=== PATIENT | female | born 1955 | race Caucasian/White ===

== ENCOUNTER 2018-07-18 11:54 | Outpatient (CLI) | payer SELFPAY ==
[2018-07-18 12:31] LABS: Hemoglobin A1C 6.6 % (4.5-6.2)
== END 2018-07-18 12:14 ==
PROVIDERS: PCP General Practice; Visit Provider General Practice
DX: E11.9 Type 2 diabetes mellitus without complications (principal)
CPT/HCPCS: 36415; 83036

== ENCOUNTER 2018-09-14 08:45 | Outpatient (CLI) | payer MEDICARE, SELFPAY ==
[2018-09-14 10:16] LABS: Anion Gap 10.3 mmol/L (3-11); BUN 29 mg/dL (7-18); CO2 29.7 mmol/L (21.0-32.0); CREATININE 1.25 mg/dL (0.55-1.02); Chloride 102 mmol/L (98-107); Cholesterol 250 mg/dL (50-200); Estimated GFR 43.01 (mL/min/1.73m2); HDL Cholesterol 64 mg/dL (40-60); LDL CHOLESTEROL 165 mg/dL (<100); Potassium 3.7 mmol/L (3.5-5.1); Sodium 142 mmol/L (136-145); Triglyceride 157 mg/dL (30-150)
== END 2018-09-14 09:05 ==
PROVIDERS: PCP General Practice; Visit Provider General Practice
DX: E78.00 Pure hypercholesterolemia, unspecified (principal); I10 Essential (primary) hypertension
CPT/HCPCS: 36415; 80051; 80061; 83721; 84520; 82565

== ENCOUNTER → 2018-09-19 13:42 | Outpatient (BNVA) | payer MEDICARE, BC, SELFPAY | PROVIDERS: PCP General Practice; Referring Provider General Practice; Visit Provider Surgery | DX: R10.9 Unspecified abdominal pain (principal); E11.9 Type 2 diabetes mellitus without complications; Z79.84 Long term (current) use of oral hypoglycemic drugs; I10 Essential (primary) hypertension | CPT/HCPCS: 99213 ==

== ENCOUNTER 2019-07-14 08:53 | Outpatient (CLI) | payer MEDICARE, BC, SELFPAY ==
[2019-07-14 09:36] LABS: Hemoglobin A1C 6.3 % (4.5-6.2)
[2019-07-14 10:24] LABS: Anion Gap 10.6 mmol/L (3-11); BUN 21 mg/dL (7-18); CO2 30.4 mmol/L (21.0-32.0); CREATININE 1.34 mg/dL (0.55-1.02); Chloride 100 mmol/L (98-107); Estimated GFR 39.57 (mL/min/1.73m2); Potassium 3.8 mmol/L (3.5-5.1); Sodium 141 mmol/L (136-145)
== END 2019-07-14 09:13 ==
PROVIDERS: PCP General Practice; Visit Provider General Practice
DX: E11.9 Type 2 diabetes mellitus without complications (principal); I10 Essential (primary) hypertension
CPT/HCPCS: 36415; 80051; 84520; 82565; 83036

== ENCOUNTER 2019-08-18 09:11 | Outpatient (CLI) | payer MEDICARE, BC, SELFPAY ==
[2019-08-18 11:19] LABS: ALT 24 U/L (14-59); AST 21 U/L (15-37); Albumin 3.9 g/dL (3.4-5.0); Alkaline Phosphatase 84 U/L (46-116); Anion Gap 11.2 mmol/L (3-11); BUN 19 mg/dL (7-18); Bilirubin, Total 0.4 mg/dL (0.2-1.0); CO2 30.8 mmol/L (21.0-32.0); CREATININE 1.25 mg/dL (0.55-1.02); Calcium 9.7 mg/dL (8.5-10.1); Chloride 103 mmol/L (98-107); Estimated GFR 42.88 (mL/min/1.73m2); Glucose 110 mg/dL (70-100); Potassium 4.4 mmol/L (3.5-5.1); Sodium 145 mmol/L (136-145); Total Protein 7.9 g/dL (6.4-8.2)
== END 2019-08-18 09:31 ==
PROVIDERS: PCP Nurse Practitioner; Visit Provider Nurse Practitioner
DX: E11.9 Type 2 diabetes mellitus without complications (principal); I10 Essential (primary) hypertension
CPT/HCPCS: 36415; 80053

== ENCOUNTER → 2019-08-25 11:19 | Outpatient (BNVA) | payer MEDICARE, BC, SELFPAY | PROVIDERS: PCP Nurse Practitioner; Referring Provider Nurse Practitioner; Visit Provider Surgery | DX: R10.9 Unspecified abdominal pain (principal); I10 Essential (primary) hypertension; E11.9 Type 2 diabetes mellitus without complications | CPT/HCPCS: 99213 ==

== ENCOUNTER 2019-09-01 01:23 | Outpatient (CLI) | payer MEDICARE, BC, SELFPAY ==
--- NOTE | 2019-09-01 08:11 | DI.US_ITS ---
EXAM: US HERNIA CLINICAL HISTORY: Pain at previous Umbilical hernia. ? recurrence, R10.9 TECHNIQUE: Ultrasound performed using standard protocol. COMPARISON: No priors for comparison FINDINGS: No sonographic evidence of a supraumbilical or umbilical hernia is noted. No focal fluid collection is identified in the subcutaneous tissues. IMPRESSION: No sonographic evidence of a recurrent anterior abdominal wall hernia.
== END 2019-09-01 01:43 ==
PROVIDERS: PCP Nurse Practitioner; Visit Provider Surgery
DX: R10.33 Periumbilical pain (principal)
CPT/HCPCS: 76857

== ENCOUNTER → 2019-09-20 12:55 | Outpatient (BNVA) | payer MEDICARE, BC, SELFPAY | PROVIDERS: PCP Nurse Practitioner; Referring Provider Nurse Practitioner; Visit Provider Psychiatry & Neurology Neurology | DX: E11.40 Type 2 diabetes mellitus with diabetic neuropathy, unspecified (principal) | CPT/HCPCS: 99204; 99215 ==

== ENCOUNTER → 2019-10-30 09:41 | Outpatient (BNVA) | payer MEDICARE, BC, SELFPAY | PROVIDERS: PCP Nurse Practitioner; Referring Provider Nurse Practitioner; Visit Provider Nurse Practitioner Adult Health | DX: E11.42 Type 2 diabetes mellitus with diabetic polyneuropathy (principal) | CPT/HCPCS: 99213 ==

== ENCOUNTER 2019-12-01 11:24 | Outpatient (CLI) | payer MEDICARE, BC, SELFPAY ==
[2019-12-01 12:13] LABS: Hemoglobin A1C 7.3 % (3.8-5.6)
[2019-12-01 12:41] LABS: Anion Gap 10.4 mmol/L (3-11); BUN 33 mg/dL (7-18); CO2 29.6 mmol/L (21.0-32.0); CREATININE 1.54 mg/dL (0.55-1.02); Calcium 8.6 mg/dL (8.5-10.1); Chloride 102 mmol/L (98-107); Glucose 137 mg/dL (74-106); Potassium 3.4 mmol/L (3.5-5.1); Sodium 142 mmol/L (136-145)
== END 2019-12-01 11:44 ==
PROVIDERS: PCP Nurse Practitioner; Visit Provider Nurse Practitioner
DX: E11.9 Type 2 diabetes mellitus without complications (principal); R94.4 Abnormal results of kidney function studies
CPT/HCPCS: 36415; 80048; 83036

== ENCOUNTER 2019-12-12 12:00 | Emergency (ER) | payer MEDICARE, BC, SELFPAY ==
[2019-12-12] VITALS (35 sets, daily range): BP systolic 134–168; BP diastolic 60–75; PULSE 84–101; RESP 10–24; TEMP 36.7; O2SAT 91–100
--- NOTE | 2019-12-12 12:18 | NUR.NOTE ---
SSCP approx 1.5 hours [employer]. Reports dull achy pain, non-radiating. Reports associated dizziness, mild diaphoresis. Denies SOB. SR on monitor. #18 RAC, labs drawn. Pain 7/10 at it's worst, currently 0-1/10.
--- NOTE | 2019-12-12 12:19 | ED.GENADUL_ITS ---
Discharge Plan Disposition Patient Disposition: HOME Condition: Improving Discharge Details Chief Complaint: Chest Pain Clinical Impression: Atypical chest pain Primary Care Provider: Cass Abebe ED Provider: Ten Boss Home Meds and New Rx's Prescriptions: Continued cholecalciferol (vitamin D3) 1,000 unit capsule 1,000 unit PO DAILY RF: 0 pregabalin 150 mg capsule 150 mg PO BID Qty: 60 RF: 5 nortriptyline 10 mg capsule 40 mg PO HS Qty: 360 RF: 3 tramadol 50 mg tablet 50 mg PO HS Qty: 30 RF: 0 pantoprazole 40 MG tablet,delayed release (DR/EC) 40 mg PO DAILY RF: 0 hydrochlorothiazide 25 MG tablet 25 mg PO DAILY RF: 0 vitamin E 400 UNIT capsule 400 unit PO DAILY RF: 0 VITAMIN B COMPLEX 1 EACH tablet 1 tab-cap PO DAILY RF: 0 ibuprofen [Advil Liqui-Gel] 200 MG capsule 600 mg PO Q8H PRNQty: 0 RF: 0 Discharge Instructions Instructions: Chest Pain (ED) Additional Instructions: Your blood work, EKG, chest x-ray today were unremarkable. Return if you have recurrent chest pain, develop difficulty breathing, or any other acute concerns. Your magnesium was slightly low and you were given supplementation in the ED today. Follow-up with Cass Abebe in clinic for recheck in the next 1 to 2 weeks time. Continue your regular medications. Discharge Data Discharge Date/Time-TO BE ENTERED AT DEPARTURE: 12/12/19 16:26 Medical Decision Making 64-year-old female presents complaining of 1 hour of anterior chest discomfort that began this morning, lasted approximately 50 to 60 minutes and dissipated on its own after coughing 3 times. She arrives slightly hypertensive at 160/75 but otherwise reassuring exam. Initial EKG is unremarkable. Differential diagnosis includes ACS, atypical chest discomfort, esophageal gas. IV placed, patient placed on a cardiac catheterization technologist, referred for chest x-ray. Diagnostics reveal mild elevation of the BUN at 23 with creatinine 1.3, magnesium slightly low at 1.6 and supplemented. Troponin is negative; repeated and negative x2. Patient remains improved and without further pain. She is stable and appropriate for discharge to home. Do not find there is evidence to pursue further work-up at this time. I discussed with her indications to seek reevaluation. Lab Data Lab results reviewed: Yes I reviewed the patient's lab results. Labs: Laboratory Results - last 24 hr 12/12/19 12/12/19 12:08 12:08 WBC 6.77 RBC 4.03 Hgb 10.8 L Hct 33.7 L MCV 83.6 MCH 26.8 L MCHC 32.0 RDW 15.4 H Plt Count 210 MPV 11.1 H Immature Gran % 0.1 Neutrophils % 45.8 Lymphocytes % 43.9 Monocytes % 8.0 Eosinophils % 1.6 Basophils % 0.6 Absolute Neutrophils 3.10 Absolute Lymphocytes 2.97 Absolute Monocytes 0.54 Absolute Eosinophils 0.11 Absolute Basophils 0.04 Sodium 139 Potassium 3.7 Chloride 100 Carbon Dioxide 28.9 Anion Gap 10.1 BUN 23 H Creatinine 1.33 H Estimated GFR/1.73 m2 39.92 Glucose 91 Calcium 9.3 Magnesium 1.6 L Total Bilirubin 0.5 AST 22 ALT 21 Alkaline Phosphatase 101 Troponin I < 0.05 Total Protein 8.4 H Albumin 3.5 ECG Data Attestation: I personally reviewed and interpreted this ECG (s) as follows: Prior ECG tracings: available for review Interpretation: Normal sinus rhythm, rate 94, inferior Q waves that are present on comparison tracing from August 25, [address] segment elevation present. QTC 450. HPI General Mode of arrival: ambulatory . Date/Time Provider Initiated Documentation: 12/12/19 12:01 . Limitations to Documentation: no limitations . Information obtained by: patient . History of Present Illness 64 year old F presents to the emergency department with the chief complaint of 1 hour of retrosternal and chest pain that resolved with coughing., described as moderate, and is localized to the chest. Patient reports no radiation. Patient started experiencing this hour(s) and it has been now resolved. No relieving factors improve symptom(s), No exacerbating factors reported . Patient notes other (No leg pain or swelling, no travel.); denies cough, fever/chills, shortness of breath and syncope. Related Data Home Medications Medication Instructions Recorded Confirmed Vitamin B Complex 1 tab-cap PO DAILY tab-cap NS 11/07/13 12/12/19 hydrochlorothiazide 25 mg PO DAILY tab-cap NS 11/07/13 12/12/19 pantoprazole 40 mg PO DAILY tab-cap NS 11/07/13 12/12/19 vitamin E 400 unit PO DAILY NS 11/07/13 12/12/19 ibuprofen [Advil Liqui-Gel] 600 mg PO Q8H PRN #0 08/28/16 12/12/19 cholecalciferol (vitamin D3) 25 1,000 unit PO DAILY 08/28/19 12/12/19 mcg (1,000 unit) capsule tramadol 50 mg tablet 50 mg PO HS #30 tab 09/18/19 12/12/19 pregabalin 150 mg capsule 150 mg PO BID #60 cap 09/20/19 12/12/19 nortriptyline 10 mg capsule 40 mg PO HS #360 cap 11/13/19 12/12/19 Previous Rx's Medication Instructions Recorded ibuprofen [Advil Liqui-Gel] 600 mg PO Q8H PRN #0 08/28/16 tramadol 50 mg tablet 50 mg PO HS #30 tab 09/18/19 pregabalin 150 mg capsule 150 mg PO BID #60 cap 09/20/19 nortriptyline 10 mg capsule 40 mg PO HS #360 cap 11/13/19 Allergies Allergy/AdvReac Type Severity Reaction Status Date / Time metoclopramide [From Reglan] Allergy Verified 12/12/19 12:11 pollen extracts Allergy Verified 12/12/19 12:11 propoxyphene HCl AdvReac Nausea Verified 12/12/19 12:11 [From Darvon] General Stated Complaint: Chest Pain SHERIDAN: 2 Review of Systems Narrative: See HPI. 6 systems reviewed and otherwise negative. [facility] Medical History Daytime somnolence (Acute) Diabetes mellitus (Chronic) Diabetic neuropathy (Chronic) a. Bilateral. Esophageal stricture (Chronic) GERD (gastroesophageal reflux disease) (Chronic) History of transient ischemic attack (Chronic) History of umbilical hernia (Acute) Hyperlipidemia (Acute) Hypertension (Chronic) Medical marijuana use (Chronic) Nonalcoholic steatohepatitis (Chronic) Restless leg syndrome (Chronic) Snoring (Acute) Family History Mother Diabetes Father Heart disease Substance abuse Brother Substance abuse Depression Heart disease Social History Smoking/Tobacco Use Status: Never Alcohol Intake: current Alcohol Intake frequency: holidays/special occasions only Drug use: Never Substance use type: marijuana Adopted: No Caregiver/Support person: No Foster care: No Household members: none Housing: house Do you need help understanding health information?: Rarely current occupation: [employer] Sexually active: No Do you think of yourself as: straight/heterosexual Current gender identity: female Do you feel safe in your relationship?: Yes Exam Narrative Exam Narrative: GEN: awake, alert, oriented 3. Pleasant, well groomed, interactive. HEAD: Normocephalic, atraumatic ENT: Mucous membranes moist, oropharynx unremarkable, External ear exam unremarkable EYES: PERRL, EOMI NECK: Full ROM, no BEBO, no menigismus CHEST/RESP: Nontender, clear to auscultation bilateral, no wheeze/rhonchi/rales CARDIOVASCULAR: RRR, no murmur, rub kerry. 2+ Rad pulse bilateral ABDOMEN: Soft, nontender, no mass. +Bowel sounds EXT: Full ROM, no edema, no rash Neuro: Grossly normal neurologic exam, conversant, interactive. Psych: Speech fluent, thoughts congruent, affect normal Course Vital Signs Vital signs: Vital Signs Temperature 36.7 C 12/12/19 12:07 Pulse 92 H 12/12/19 12:07 Respiratory Rate 13 12/12/19 12:07 Blood Pressure 168/75 H 12/12/19 12:07 Pulse Oximetry 95 12/12/19 12:07 Temperature 36.7 C 12/12/19 12:07 Temperature Source Skin 12/12/19 12:07 Pulse 92 H 12/12/19 12:07 Respiratory Rate 15 12/12/19 12:16 Respiratory Effort 12/12/19 12:16 Respiratory Depth Normal 12/12/19 12:16 Respiratory Pattern Normal 12/12/19 12:16 Blood Pressure 168/75 H 12/12/19 12:07 Blood Pressure Position Supine 12/12/19 12:07 Pulse Oximetry 95 12/12/19 12:07 Oxygen Delivery Method Room Air 12/12/19 12:07 Oxygen Flow Rate 0 12/12/19 12:07 Pain Level 1 12/12/19 12:07
[2019-12-12] MEDS: Normal Saline 500 ML IV (12:28)
[2019-12-12 12:31] LABS: Abs Immature Grans 0.01 k/cumm (0.0-0.09); Absolute Basophil Count 0.04 k/cumm (0.0-0.2); Absolute Eosinophil Count 0.11 k/cumm (0.0-0.7); Absolute Lymphocyte Count 2.97 k/cumm (1.2-3.4); Absolute Monocyte Count 0.54 k/cumm (0.11-0.7); Basophils % 0.6; Eosinophils % 1.6; HCT 33.7 % (36.0-46.0); HGB 10.8 g/dL (12.0-15.5); Immature Grans % 0.1 %; Lymphocytes % 43.9; Mean Corpuscular Hemoglobin 26.8 pg (27.0-33.0); Mean Corpuscular Volume 83.6 fL (80-95); Mean Platelet Volume 11.1 fL (8.0-11.0); Neutrophils % 45.8; Platelet Count 210 x1000/uL (130-400); RBC 4.03 m/cumm (4.00-5.20); RBC Distribution Width 15.4 % (11.7-14.6); White Blood Cell Count 6.77 k/cumm (4.4-10.8)
[2019-12-12 12:53] LABS: ALT 21 U/L (14-59); AST 22 U/L (15-37); Albumin 3.5 g/dL (3.4-5.0); Alkaline Phosphatase 101 U/L (46-116); Anion Gap 10.1 mmol/L (3-11); BUN 23 mg/dL (7-18); Bilirubin, Total 0.5 mg/dL (0.2-1.0); CO2 28.9 mmol/L (21.0-32.0); CREATININE 1.33 mg/dL (0.55-1.02); Calcium 9.3 mg/dL (8.5-10.1); Chloride 100 mmol/L (98-107); Estimated GFR 39.92 (mL/min/1.73m2); Glucose 91 mg/dL (74-106); Magnesium 1.6 mg/dL (1.8-2.4); Potassium 3.7 mmol/L (3.5-5.1); Sodium 139 mmol/L (136-145); Total Protein 8.4 g/dL (6.4-8.2)
--- NOTE | 2019-12-12 13:00 | DI.RAD_ITS ---
EXAM: XR CHEST 2V PA LATERAL INDICATION: Central chest pain, improving. COMPARISON: No exams were available for comparison TECHNIQUE: 2D digital imaging was performed. FINDINGS: The lungs are not well inflated on the PA view. The lungs appear clear on the lateral view. The he art size is within normal limits for degree of inspiration. There is no evidence of pneumothorax. N o effusions are seen. IMPRESSION: Limited exam due to poor pulmonary inflation. No gross infiltrate is seen. DATA REPOSITORY: RADIATION DOSE DELIVERED:
[2019-12-12 13:16] LABS: Troponin I < 0.05 ng/Ml (<0.06)
[2019-12-12] MEDS: MAGNESIUM SULFATE 1 GM/100 ML BAG IVPB (13:43)
[2019-12-12] MEDS: Normal Saline Flush 10 ML SYR IVP (13:43)
[2019-12-12 15:46] LABS: Troponin I < 0.05 ng/Ml (<0.06)
== END 2019-12-12 16:26 | disposition home or self-care (01) ==
PROVIDERS: Emergency Provider Emergency Medicine; PCP Nurse Practitioner
DX: R07.89 Other chest pain (principal); E83.42 Hypomagnesemia; E11.9 Type 2 diabetes mellitus without complications; I10 Essential (primary) hypertension
CPT/HCPCS: 36415; 80053; 93005; 96361; 96365; 99285; 71046; 83735; 84484; 85025; 93010; J3475

== ENCOUNTER 2020-02-21 01:23 | Outpatient (CLI) | payer MEDICARE, BC, SELFPAY ==
--- NOTE | 2020-02-21 10:10 | DI.MAMMO_ITS ---
EXAM: MG MAMMO SCREENING CLINICAL HISTORY: screening,z12.39 TECHNIQUE: Mammograms were interpreted according to the usual protocol including computer analysis w Enefgy CAD system, tomosynthesis and C-view imaging. COMPARISON: FINDINGS: The breasts are heterogeneously dense. No dominant mass or clumped microcalcification identified in either breast. Current examination is compared with previous examinations including July 2016 and there has been no gross interval change in appearance comparison with previous studies. IMPRESSION: No specific evidence of malignancy at this time. Routine screening examinations are suggested at yea rly intervals in this age group according to the ACS ACR guidelines. BI-RADS Cat 1 - Negative: Breast Density - Category C - Heterogeneously dense:
== END 2020-02-21 01:43 ==
PROVIDERS: PCP Nurse Practitioner; Visit Provider Nurse Practitioner
DX: Z12.31 Encounter for screening mammogram for malignant neoplasm of breast (principal)
CPT/HCPCS: 77063; 77067

== ENCOUNTER 2020-02-22 01:52 | Outpatient (CLI) | payer MEDICARE, BC, SELFPAY ==
[2020-02-22 11:28] LABS: HCT 31.7 % (36.0-46.0); Mean Corp. HGB Concentration 31.5 g/dL (32.0-36.0); Mean Corpuscular Hemoglobin 26.5 pg (27.0-33.0); Mean Corpuscular Volume 84.1 fL (80-95); Mean Platelet Volume 11.2 fL (8.0-11.0); Platelet Count 165 x1000/uL (130-400); RBC 3.77 m/cumm (4.00-5.20); RBC Distribution Width 15.8 % (11.7-14.6); White Blood Cell Count 6.44 k/cumm (4.4-10.8)
[2020-02-22 12:21] LABS: Total Iron Binding Capacity 388 ug/dL (250-450)
[2020-02-22 12:48] LABS: Ferritin 10 ng/mL (8-252); Vitamin B12 408 pg/mL (193-986)
== END 2020-02-22 02:12 ==
PROVIDERS: PCP Nurse Practitioner; Visit Provider Nurse Practitioner
DX: D64.9 Anemia, unspecified (principal); E11.9 Type 2 diabetes mellitus without complications
CPT/HCPCS: 36415; 85027; 82607; 82728; 83550

== ENCOUNTER 2020-03-25 10:52 | Outpatient (CLI) | payer MEDICARE, BC, SELFPAY ==
[2020-03-26 13:54] LABS: COVID-19 RT-PCR UVMMC Result Negative (Negative)
== END 2020-03-25 11:12 ==
PROVIDERS: PCP Nurse Practitioner; Visit Provider Nurse Practitioner
DX: R68.83 Chills (without fever) (principal)
CPT/HCPCS: U0003

== ENCOUNTER 2020-03-27 04:10 | Outpatient (CLI) | payer MEDICARE, BC, SELFPAY ==
[2020-03-27 12:06] LABS: HGB 10.3 g/dL (12.0-15.5); Mean Corp. HGB Concentration 32.2 g/dL (32.0-36.0); Mean Corpuscular Hemoglobin 26.9 pg (27.0-33.0); Mean Corpuscular Volume 83.6 fL (80-95); Mean Platelet Volume 11.1 fL (8.0-11.0); Platelet Count 170 x1000/uL (130-400); RBC 3.83 m/cumm (4.00-5.20); RBC Distribution Width 15.5 % (11.7-14.6); Reticulocyte 1.7 % (0.5-2.4); White Blood Cell Count 7.73 k/cumm (4.4-10.8)
[2020-03-27 12:18] LABS: Hemoglobin A1C 7.1 % (3.8-5.6)
[2020-03-27 12:53] LABS: ALT 25 U/L (14-59); AST 24 U/L (15-37); Albumin 3.6 g/dL (3.4-5.0); Alkaline Phosphatase 102 U/L (46-116); Anion Gap 11.3 mmol/L (3-11); BUN 35 mg/dL (7-18); Bilirubin, Total 0.4 mg/dL (0.2-1.0); CO2 29.7 mmol/L (21.0-32.0); CREATININE 1.74 mg/dL (0.55-1.02); Calcium 9.4 mg/dL (8.5-10.1); Chloride 100 mmol/L (98-107); Estimated GFR 29.27 (mL/min/1.73m2); Glucose 108 mg/dL (74-106); Potassium 3.4 mmol/L (3.5-5.1); Sodium 141 mmol/L (136-145); Total Protein 7.8 g/dL (6.4-8.2)
[2020-03-27 12:56] LABS: TSH (W/Ref FT4) 1.36 uIU/mL (0.36-3.74)
== END 2020-03-27 04:30 ==
PROVIDERS: PCP Nurse Practitioner; Visit Provider Nurse Practitioner
DX: D64.9 Anemia, unspecified (principal); R94.4 Abnormal results of kidney function studies; R07.9 Chest pain, unspecified; E11.9 Type 2 diabetes mellitus without complications
CPT/HCPCS: 36415; 80053; 85027; 83036; 84443; 85045

== ENCOUNTER 2020-03-30 18:17 | Emergency (ER) | payer MEDICARE, BC, SELFPAY | END 2020-03-30 18:35 | LOC: ER 18:25 | PROVIDERS: PCP Nurse Practitioner | DX: Z53.21 Procedure and treatment not carried out due to patient leaving prior to being seen by health care provider (principal) ==

== ENCOUNTER 2020-03-30 18:29 | Inpatient (IN) | payer MEDICARE, BC, SELFPAY ==
[2020-03-30] VITALS (37 sets, daily range): BP systolic 118–175; BP diastolic 59–90; PULSE 91–124; RESP 9–26; TEMP 36.3–36.6; O2SAT 92–100
--- NOTE | 2020-03-30 18:42 | ED.GENADUL_ITS ---
Discharge Plan Discharge Details Chief Complaint: GenMedical Primary Care Provider: aCss Abebe ED Provider: Guadalupe Serrano Home Meds and New Rx's Prescriptions: No Action cholecalciferol (vitamin D3) 1,000 unit capsule 1,000 unit PO DAILY RF: 0 nortriptyline 10 mg capsule 40 mg PO HS Qty: 360 RF: 3 lactulose 10 gram/15 mL solution 20 gm PO BID PRN (Reason: constipation) Qty: 500 RF: 2 mirtazapine 7.5 mg tablet 7.5 mg PO QHS Qty: 30 RF: 2 (DME) blood sugar diagnostic [FreeStyle Lite Strips] Strip See Rx Instructions .ROUTE .MEDSUPPLY Qty: 200 RF: 5 (DME) lancets [BD Ultra Fine Lancets] 33 gauge misc See Rx Instructions .ROUTE .MEDSUPPLY Qty: 200 RF: 5 pantoprazole 40 MG tablet,delayed release (DR/EC) 40 mg PO DAILY RF: 0 hydrochlorothiazide 25 MG tablet 25 mg PO DAILY RF: 0 vitamin E 400 UNIT capsule 400 unit PO DAILY RF: 0 VITAMIN B COMPLEX 1 EACH tablet 1 tab-cap PO DAILY RF: 0 tramadol 50 mg tablet 50 mg PO BID PRN (Reason: pain) Qty: 60 RF: 0 ibuprofen [Advil Liqui-Gel] 200 MG capsule 600 mg PO Q8H PRNQty: 0 RF: 0 Medical Decision Making Denies any dysuria, frequency. 64-year-old female presents via EMS for increased shortness of breath, tachycardia and anxiety which is been worsening over the last week. Patient states that she has been feeling ill for the last week and has been talking with her primary care provider regarding recent anemia and decreased GFR work-up of kidney disease. She did have a COVID test which was negative this week. She has been anxious, dry heaving upon arrival, she is tachycardic with a heart rate of 121. BGL prior to arrival via EMS was 150, EKG prior to arrival was within normal limits per EMS. Patient denies any chest pain does endorse some back pain which has resolved upon arrival. 1845: Spoke with Daughter in phone who reports the last week of testing, and patients symptoms including, increased anxiety, and possible medication changes including taking off Lyrica and increasing trazadone. EKG was reviewed by Tha Villavicencio MD asked me ER attending, 1901: We will order d-dimer to rule out PE. CT chest not ordered at this time due to history of increased BUN and creatinine and decreased GFR. 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 Normal saline 1 L 500 mils an hour ordered and 0.5 mg lorazepam IV. At this time hemoglobin is 12 hematocrit 36.4 MCV 81 MCH 26 RDW is 15%. Potassium is 3.3, anion gap is 13.9, BUN 25 creatinine 1.61 GFR 32. 2052: Spoke with patient and family regarding results and discussed CT chest with IV contrast and kidney functions. At this time we will repeat fluids and repeat a BMP, to evaluate kidney functions further, patient's daughter is at the bedside discussed concern for possible pulmonary embolism. She does have a follow-up appointment on Wednesday for a kidney ultrasound. Patient is feeling much better after the 0.5 mg lorazepam IV. Heart rate is down to 100. 2155: Discussed option for admission for further rule out pulmonary embolism and having a VQ scan or CT of the chest done in later date. At this time it is concerning due to EKG changes, tachycardia, patient and family have changed her mind and wish to be admitted for further evaluation and rule out PE. Recurrent anxiety, associated with shortness of breath. At this time repeat BMP and second troponin is pending is being drawn right now at lab. 2205: Hospitalist paged. 2232: Spoke with Dr. Marie regarding patient case in details he agrees to admit patient for possible pulmonary embolism, shortness of breath. Will treat as if it is a PE at this time we will give a heparin infusion, which Dr. Ramirez within suggested and recommended, until further definitive imaging can be obtained. Wells criteria for this patient is moderate risk cannot exclude PE. At this time repeat BMP has resulted and is largely unchanged from previous BMP, BUN 24 creatinine 1.57 and estimated GFR is 32.96. Second troponin is resulted as well and is less than 0.05. 2309: Chest x-ray unremarkable, no pleural effusion, no pneumothorax, no acute findings per V rad. Difforferential diagnosis includes pulmonary embolism, anxiety, pneumonia, CHF, Patient to be admitted for rule out pulmonary embolism, increased anxiety and shortness of breath. HPI General Mode of arrival: EMS . Date/Time Provider Initiated Documentation: 03/30/20 18:38 . Limitations to Documentation: no limitations . Information obtained by: patient and family . HPI Narrative: Denies any dysuria, frequency. 64-year-old female presents via EMS for increased shortness of breath, tachycardia and anxiety which is been worsening over the last week. Patient states that she has been feeling ill for the last week and has been talking with her primary care provider regarding recent anemia and decreased GFR work-up of kidney disease. She did have a COVID test which was negative this week. She has been anxious, dry heaving upon arrival, she is tachycardic with a heart rate of 121. BGL prior to arrival via EMS was 150, EKG prior to arrival was within normal limits per EMS. Patient denies any chest pain does endorse some back pain which has resolved upon arrival. Related Data Home Medications Medication Instructions Recorded Confirmed Vitamin B Complex 1 tab-cap PO DAILY tab-cap NS 11/07/13 03/30/20 hydrochlorothiazide 25 mg PO DAILY tab-cap NS 11/07/13 03/30/20 pantoprazole 40 mg PO DAILY tab-cap NS 11/07/13 03/30/20 vitamin E 400 unit PO DAILY NS 11/07/13 03/30/20 ibuprofen [Advil Liqui-Gel] 600 mg PO Q8H PRN #0 08/28/16 03/30/20 cholecalciferol (vitamin D3) 25 1,000 unit PO DAILY 08/28/19 03/30/20 mcg (1,000 unit) capsule nortriptyline 10 mg capsule 40 mg PO HS #360 cap 11/13/19 03/30/20 blood sugar diagnostic #200 each 03/26/20 03/26/20 lactulose 10 gram/15 mL oral 20 gm PO BID PRN #500 ml 03/26/20 03/30/20 solution lancets 33 gauge #200 each 03/26/20 03/26/20 mirtazapine 7.5 mg tablet 7.5 mg PO QHS #30 tab 03/26/20 03/30/20 tramadol 50 mg tablet 50 mg PO BID PRN #60 tab 03/27/20 03/30/20 Previous Rx's Medication Instructions Recorded ibuprofen [Advil Liqui-Gel] 600 mg PO Q8H PRN #0 08/28/16 nortriptyline 10 mg capsule 40 mg PO HS #360 cap 11/13/19 blood sugar diagnostic #200 each 03/26/20 lactulose 10 gram/15 mL oral 20 gm PO BID PRN #500 ml 03/26/20 solution lancets 33 gauge #200 each 03/26/20 mirtazapine 7.5 mg tablet 7.5 mg PO QHS #30 tab 03/26/20 tramadol 50 mg tablet 50 mg PO BID PRN #60 tab 03/27/20 Allergies Allergy/AdvReac Type Severity Reaction Status Date / Time metoclopramide [From Reglan] Allergy Verified 03/30/20 19:16 pollen extracts Allergy Verified 03/30/20 19:16 propoxyphene HCl AdvReac Nausea Verified 03/30/20 19:16 [From Velma] General SHERIDAN: 2 Review of Systems Narrative: Constitutional: Negative for weight loss, alert and oriented, well groomed, normal body habitus, appears uncomfortable and anxious.positive diaphoresis HEENT: Denies trauma, blurry vision, nasal discharge, sore throat, trouble swallowing. Positive headaches Chest: Denies chest pain, irregular rhythm, hypertension.presents with tachycardia. Respiratory:positive shortness of breath denies cough, hemoptysis. GI: Denies abdominal pain,diarrhea, constipation. Positive nausea and dry heaving : Denies dysuria, hematuria, flank pain, rectal bleeding. Neuro: Denies dizziness, blurry vision, weakness, syncope, or facial numbness. Hematologic: Denies easy bruising, intolerance to heat or cold, hair loss. Psychiatric Psychiatric: Reports anxiety and Reports irritability [facility] Medical History Daytime somnolence (Acute) Diabetes mellitus (Chronic) Diabetic neuropathy (Chronic) a. Bilateral. Esophageal stricture (Chronic) GERD (gastroesophageal reflux disease) (Chronic) History of transient ischemic attack (Chronic) History of umbilical hernia (Acute) Hyperlipidemia (Acute) Hypertension (Chronic) Medical marijuana use (Chronic) Nonalcoholic steatohepatitis (Chronic) Restless leg syndrome (Chronic) Snoring (Acute) Type 2 diabetes mellitus without complications (Acute) Surgical History Arthroplasty of knee Cholecystectomy Endometrial Ablation Oophrectomy, Left Repair of umbilical hernia with mesh Repair, Tendon or Muscle Achilles Family History Mother Diabetes Father Heart disease Substance abuse Brother Substance abuse Depression Heart disease Social History Smoking/Tobacco Use Status: Never Alcohol Intake: current Alcohol Intake frequency: holidays/special occasions only Drug use: Never Substance use type: marijuana Adopted: No Caregiver/Support person: No Foster care: No Household members: none Housing: house Do you need help understanding health information?: Rarely current occupation: [employer] Sexually active: No Do you think of yourself as: straight/heterosexual Current gender identity: female Do you feel safe at home: Yes Exam Narrative Exam Narrative: Constitutional: Alert and oriented x3. Appears stated age. Obese body habitus. Appears anxious, diaphoretic Head: Normocephalic, no trauma. Eyes: Pupils PERRLA, Red reflex noted, EOM's intact. Eyelids symmetrical without lesions, discharge, or swelling. ENT: Bilateral TM's WNL, External ear normal to inspection, no mastoid TTP, swelling, or erythema, Nasal turbinates WNL, no nasal discharge. Normal dentition, Posterior pharynx WNL, no exudate. Chest: Tachycardia at a rate of 120 upon initial presentation, normal S1, S2, distal pulses intact. Resp: Lungs clear to auscultation bilaterally, no wheezes, rales, or rhonchi. Abdomen: Soft nondistended nontender to palpation. Hyperactive bowel sounds all 4 quadrants. Musculoskeletal: Normal gait, 5/5 strength to all four extremities. Skin: No suspicious rashes or lesions. Capillary refill less than 2 sec. Neurologic: Cranial nerves II-XII intact. Alert and oriented x 3. DTR's intact. Hematologic/Lymphatic: No ecchymosis, no lymphadenopathy. 2
[2020-03-30 19:08] LABS: Abs Immature Grans 0.02 k/cumm (0.0-0.09); Absolute Basophil Count 0.02 k/cumm (0.0-0.2); Absolute Eosinophil Count 0.05 k/cumm (0.0-0.7); Absolute Lymphocyte Count 2.97 k/cumm (1.2-3.4); Absolute Monocyte Count 0.72 k/cumm (0.11-0.7); Absolute Neutrophil Count 5.52 k/cumm (1.2-6.7); Basophils % 0.2; Eosinophils % 0.5; HCT 36.4 % (36.0-46.0); Immature Grans % 0.2 %; Lymphocytes % 31.9; Mean Corpuscular Hemoglobin 26.8 pg (27.0-33.0); Mean Corpuscular Volume 81.4 fL (80-95); Mean Platelet Volume 11.3 fL (8.0-11.0); Monocytes % 7.7; Neutrophils % 59.5; Platelet Count 208 x1000/uL (130-400); RBC 4.47 m/cumm (4.00-5.20); RBC Distribution Width 15.5 % (11.7-14.6)
[2020-03-30] MEDS: Ondansetron 4 MG/2 ML VIAL IVP (19:20)
[2020-03-30 19:26] LABS: ALT 30 U/L (14-59); AST 27 U/L (15-37); Albumin 3.9 g/dL (3.4-5.0); Alkaline Phosphatase 108 U/L (46-116); Anion Gap 13.9 mmol/L (3-11); BUN 25 mg/dL (7-18); Bilirubin, Total 0.5 mg/dL (0.2-1.0); CO2 26.1 mmol/L (21.0-32.0); CREATININE 1.61 mg/dL (0.55-1.02); Calcium 10.2 mg/dL (8.5-10.1); Chloride 99 mmol/L (98-107); Estimated GFR 32.02 (mL/min/1.73m2); Glucose 152 mg/dL (74-106); Magnesium 1.7 mg/dL (1.8-2.4); Potassium 3.3 mmol/L (3.5-5.1); Sodium 139 mmol/L (136-145); Total Protein 9.4 g/dL (6.4-8.2)
[2020-03-30 19:28] LABS: Troponin I < 0.05 ng/mL (<0.06)
[2020-03-30 19:42] LABS: Lipase 151 U/L (73-393)
[2020-03-30] MEDS: LORazepam 2 MG/ML VIAL 0.5 MG IVP ×2 (19:51→22:39)
[2020-03-30] MEDS: Normal Saline 250 ML 500 ML IV (19:52)
[2020-03-30 19:54] LABS: D-Dimer 671 ng/mlFEU (<500)
[2020-03-30] MEDS: Normal Saline 500 ML IV (21:06)
--- NOTE | 2020-03-30 22:00 | DI.RAD_ITS ---
EXAM: XR CHEST 2V PA LATERAL CLINICAL HISTORY: Shortness of breath TECHNIQUE: 2D digital imaging was performed. COMPARISON: CR XR CHEST 2V PA LATERAL from 12/12/2019 FINDINGS: MEDIASTINUM: Normal. HEART: Normal. PULMONARY VASCULATURE: Normal. LUNGS: Clear. PLEURAL SPACE: No pleural effusion or pneumothorax. BONE:Normal. OTHER FINDINGS:Normal. IMPRESSION: No acute pulmonary findings. DATA REPOSITORY: RADIATION DOSE DELIVERED:
[2020-03-30 22:40] LABS: Troponin I < 0.05 ng/mL (<0.06)
[2020-03-30 22:41] LABS: BUN 24 mg/dL (7-18); CREATININE 1.57 mg/dL (0.55-1.02); Calcium 9.7 mg/dL (8.5-10.1); Estimated GFR 32.96 (mL/min/1.73m2); Glucose 140 mg/dL (74-106)
[2020-03-30 22:42] LABS: Anion Gap 12.8 mmol/L (3-11); CO2 26.2 mmol/L (21.0-32.0); Chloride 101 mmol/L (98-107); Potassium 3.3 mmol/L (3.5-5.1); Sodium 140 mmol/L (136-145)
--- NOTE | 2020-03-30 23:06 | DI.VRAD_ITS ---
PROCEDURE INFORMATION: Exam: XR Chest, 2 Views Exam date and time: 03/30/2020 10:47 PM Age: 64 years old Clinical indication: Shortness of breath; Patient HX: SOB TECHNIQUE: Imaging protocol: XR of the chest Views: 2 views. COMPARISON: CR XR CHEST 2V PA LATERAL 12/12/2019 12:46 PM FINDINGS: Lungs: Unremarkable. No consolidation. Pleural space: Unremarkable. No pleural effusion. No pneumothorax. Heart/Mediastinum: Unremarkable. No cardiomegaly. Bones/joints: Unremarkable. IMPRESSION: No acute findings. Dictated and Authenticated by: Jaydon Stinson MD. Ordering:MEGHA Butcher MD
[2020-03-30 23:43] LABS: INR 1.1 (0.9-1.1); Prothrombin Time 10.6 sec (9.3-11.0)
--- NOTE | 2020-03-30 23:48 | W.PM.HP.N ---
Date of service: 03/30/20 Time of Service: 23:48 Assessment and Plan Assessment and plan (1) Sinus tachycardia: Status: Acute Assessment and plan: I think it is unlikely that the patient has a pulmonary embolus. I think her tachycardia is a manifestation of her anxiety and lack of sleep and may be exacerbated by some of her medicines including her nortriptyline. Of note patient was recently taken off of her Lyrica however she just stopped this yesterday and her symptoms predated her discontinuation of her Lyrica. She was told to stop the Lyrica because of her acute renal insufficiency. Think there is some component of dehydration to her tachycardia and the patient has not been able to eat or drink much of anything for the last 3 days. Patient was given a total of 750 mL of saline bolus in the emergency department. I would keep her on IV saline overnight for another liter. For now should be kept on a heparin drip until we can definitively rule out a PE and DVT. We will try to get a VQ scan and venous duplex scan of her legs in the morning. However since this is a weekend will remain n.p.o. get the study until Wednesday morning. I think her anxiety disorder is not adequately controlled. (2) Anxiety: Status: Chronic Assessment and plan: patient may benefit from adjustment or change in her antidepressant. she is currently taking nortriptyline which can be useful in both diabetic neuropathy and depression but a better medication may be venlafaxine. She could also benefit from a benzodiazepine acutely to help her acute anxiety reaction. (3) Hypertension: Status: Chronic Assessment and plan: she is not on any ANNETTE inhibitor nor any ARB however in light of her recent dx of GETACHEW (which actually appears to be chronic kidney disease w/ acute worsening), I am not going to start her on anything new for her hypertension for now. I have held her HCTZ for now while we hydrate her overnight. Qualifiers: Hypertension type: essential hypertension Qualified Code(s): I10 - Essential (primary) hypertension (4) GERD (gastroesophageal reflux disease): Status: Chronic Assessment and plan: continue her home dose of prilosec (5) Diabetic neuropathy: Status: Chronic Assessment and plan: trial of capsacein cream. I did not reorder her Tramadol d/t increased drug interactions w/ nortriptyline and mirtazpine (both class D interaction w/ Tramadol causing severe ELECTRICAL TECH depression). Could consider replacing her nortriptyline w/ venlafaxine however would not add this to the regimen d/t too much serotonergic activity and risk of serotonin syndrome. Qualifiers: Diabetes mellitus type: type 2 Diabetes mellitus complication detail: diabetic polyneuropathy Qualified Code(s): E11.42 - Type 2 diabetes mellitus with diabetic polyneuropathy (6) Insomnia: Status: Acute Assessment and plan: will treat w/ benadryl for tonight. I think that she will need adjustment of her meds for longer term solution. Apparently her Nortriptyline is not working well. Perhaps she could have an increase in her Mirtazapine to help w/ her RLS as well as her insomnia. Qualifiers: Insomnia type: unspecified Qualified Code(s): G47.00 - Insomnia, unspecified History of Present Illness History of Present Illness Chief Complaint: I have fault awful for a week Narrative: 64-year-old female with a past medical history significant for type 2 diabetes mellitus previously controlled with metformin now not on any hypoglycemic agents. Diabetes been complicated by peripheral neuropathy but denies any retinopathy. She recently was told that she has some acute kidney injury for which she is in the process of having a work-up and was told that she is anemic. She presented to the ER via EMS w/ symptoms of generalized malaise, chills (hot and cold but no rigors), anxiousness, tachycardia and dyspnea. For the last 3 nights she has not had any sleep and she is felt restless and agitated and has been hyperventilating and feeling short of breath. Says all of her joints ache and she is nauseated all the time and is been having dry heaves. She denies any abdominal pain or chest pain or diarrhea and has no dysuria. She has known restless leg syndrome and cannot sit still and throughout the interview was agitated constantly pulling at the sheets jumping up off the emergency room gurney and even when she was lying on the gurney or sitting on the gurney she was constantly moving her legs. Workup in the ER included EKG that demonstrated sinus tachycardia @ 130 bpm with no ischemic ST-T changes. The PA in the ER who called me and indicated that there were signs of PE on her EKG including S1Q3T3, however, when I reviewed her prior EKG's including dating back to April 27, 2014 she had the same findings. Furthermore, her current EKG did not demonstrate P pulmonale nor any right axis deviation, therefore, I think it not pathognomic for a PE although the tachycardia could be part of the complex. Labs were done and included a d-dimer which was mildly elevated at 671 but still within the age adjusted normal parameters. Her CMP confirmed her renal dysfunction w/ BUN 24 and creatinine of 1.57 (baseline BUN has varied 25 to 35 and creatinine has not been normal since 2017 and has been from 1.25 to 1.74). CBC tonight did not show anemia but demonstrated increased RDW and mildly decr. MCH w/ low normal MCV. There is no leukocytosis. CXR did not demonstrate any acute abnormalities. The PA in the ER was concerned that the patient may have a pulmonary embolus as the cause of her tachycardia (despite the patient not having any prior PE/DVT and no hx of malignancy nor any recent long distance travel nor recent surgeries or immobilization. The patient was heparinized and is being admitted for iv hydration, serial troponin levels and for V/Q scan and bilateral lower extremity duplex scans. She will be medicated for her anxiety and insomnia. She denies current alcohol use or drug use other than medical marijiuana which she says helps w/ her intermittent nausea. Review of Systems Constitutional Constitutional: Reports body ache(s), Reports chills, Reports difficulty sleeping, Reports excessive sweating, Reports fatigue, Reports headache(s), Reports lethargy, Reports malaise and Reports poor appetite Eyes Eyes: Reports system reviewed and no additional complaints, except as documented ENT Ears, Nose, Mouth, and Throat: Reports system reviewed and no additional complaints, except as documented and Reports headache(s) Cardiovascular Cardiovascular: Denies chest pain, Denies chest pain with activity and Reports rapid heart rate Respiratory Respiratory: Reports as per HPI Gastrointestinal Gastrointestinal: Reports as per HPI Genitourinary Genitourinary: Reports system reviewed and no additional complaints, except as documented Musculoskeletal Musculoskeletal: Reports as per HPI Integumentary/Breasts Skin/Breast: Reports system reviewed and no additional complaints, except as documented Neurologic Neurologic: Reports headache(s), Reports restless legs and Reports paresthesias Psychiatric Psychiatric: Reports abnormal sleep pattern, Reports anxiety and Reports irritability Endocrine Endocrine: Reports excessive sweating and Reports fatigue Hematologic/Lymphatic Hematologic/Lymphatic: Reports system reviewed and no additional complaints, except as documented Allergic/Immunologic Allergic/Immunologic: Reports system reviewed and no additional complaints, except as documented PFSH Medical History (Updated 03/31/20 @ 01:37 by Zeke Marie) Daytime somnolence (Acute) Diabetic neuropathy (Chronic) a. Bilateral. Esophageal stricture (Chronic) GERD (gastroesophageal reflux disease) (Chronic) History of transient ischemic attack (Chronic) History of umbilical hernia (Acute) Hyperlipidemia (Acute) Hypertension (Chronic) Medical marijuana use (Chronic) Nonalcoholic steatohepatitis (Chronic) Restless leg syndrome (Chronic) Snoring (Acute) Surgical History Arthroplasty of knee Cholecystectomy Endometrial Ablation Oophrectomy, Left Repair of umbilical hernia with mesh Repair, Tendon or Muscle Achilles Family History Mother Diabetes Father Heart disease Substance abuse Brother Substance abuse Depression Heart disease Social History Smoking/Tobacco Use Status: Never Alcohol Intake: current Alcohol Intake frequency: holidays/special occasions only Drug use: Never Substance use type: marijuana Adopted: No Caregiver/Support person: No Foster care: No Household members: none Housing: house Do you need help understanding health information?: Rarely current occupation: [employer] and some sugar, [employer] Sexually active: No Do you think of yourself as: straight/heterosexual Current gender identity: female Do you feel safe at home: Yes Meds Home Medications and Allergies Home Medications Medication Instructions Recorded Confirmed Type Vitamin B Complex 1 tab-cap PO DAILY tab-cap NS 11/07/13 03/30/20 History hydrochlorothiazide 25 mg PO DAILY tab-cap NS 11/07/13 03/30/20 History pantoprazole 40 mg PO DAILY tab-cap NS 11/07/13 03/30/20 History vitamin E 400 unit PO DAILY NS 11/07/13 03/30/20 History ibuprofen [Advil Liqui-Gel] 600 mg PO Q8H PRN #0 08/28/16 03/30/20 Rx cholecalciferol (vitamin D3) 25 1,000 unit PO DAILY 08/28/19 03/30/20 History mcg (1,000 unit) capsule nortriptyline 10 mg capsule 40 mg PO HS #360 cap 11/13/19 03/30/20 Rx blood sugar diagnostic #200 each 03/26/20 03/26/20 Rx lactulose 10 gram/15 mL oral 20 gm PO BID PRN #500 ml 03/26/20 03/30/20 Rx solution lancets 33 gauge #200 each 03/26/20 03/26/20 Rx mirtazapine 7.5 mg tablet 7.5 mg PO QHS #30 tab 03/26/20 03/30/20 Rx tramadol 50 mg tablet 50 mg PO BID PRN #60 tab 03/27/20 03/30/20 Rx Allergies Allergy/AdvReac Type Severity Reaction Status Date / Time metoclopramide [From Reglan] Allergy Verified 03/30/20 19:16 pollen extracts Allergy Verified 03/30/20 19:16 propoxyphene HCl AdvReac Nausea Verified 03/30/20 19:16 [facility] Exam Narrative Exam Narrative: Obese female who at times is sitting on the [facility] and other times she is lying in the hospital [facility] rotating from lying with her head at the head of the bed to lying with her head at the foot of the bed and then suddenly sitting up and turned the covers off of her. She is very anxious and agitated but otherwise alert and oriented person place time circumstance. HEENT is unremarkable. Neck is supple nontender no JVD normal carotid pulses no thyromegaly. Lungs are clear to auscultation Heart is tachycardic but regular without murmur rub or gallop. Abdomen is obese soft nontender nondistended normal active bowel sounds no palpable masses no organomegaly. Extremities without peripheral cyanosis or edema Genitalia rectal exam deferred. Results Labs Result diagrams: 03/30/20 19:03 03/30/20 22:05 Labs: Laboratory Results - last 24 hr 03/30/20 03/30/20 03/30/20 19:03 19:03 19:03 WBC 9.30 RBC 4.47 Hgb 12.0 Hct 36.4 MCV 81.4 MCH 26.8 L MCHC 33.0 RDW 15.5 H Plt Count 208 MPV 11.3 H Immature Gran % 0.2 Neutrophils % 59.5 Lymphocytes % 31.9 Monocytes % 7.7 Eosinophils % 0.5 Basophils % 0.2 Absolute Neutrophils 5.52 Absolute Lymphocytes 2.97 Absolute Monocytes 0.72 H Absolute Eosinophils 0.05 Absolute Basophils 0.02 PT INR D-Dimer 671 H Sodium 139 Potassium 3.3 L Chloride 99 Carbon Dioxide 26.1 Anion Gap 13.9 H BUN 25 H Creatinine 1.61 H Estimated GFR/1.73 m2 32.02 Glucose 152 H Calcium 10.2 H Magnesium 1.7 L Total Bilirubin 0.5 AST 27 ALT 30 Alkaline Phosphatase 108 Troponin I < 0.05 Total Protein 9.4 H Albumin 3.9 Lipase 03/30/20 03/30/20 03/30/20 19:03 19:03 21:30 WBC RBC Hgb Hct MCV MCH MCHC RDW Plt Count MPV Immature Gran % Neutrophils % Lymphocytes % Monocytes % Eosinophils % Basophils % Absolute Neutrophils Absolute Lymphocytes Absolute Monocytes Absolute Eosinophils Absolute Basophils PT 10.6 INR 1.1 D-Dimer Sodium Cancelled Potassium Cancelled Chloride Cancelled Carbon Dioxide Cancelled Anion Gap Cancelled BUN Cancelled Creatinine Cancelled Estimated GFR/1.73 m2 Cancelled Glucose Cancelled Calcium Cancelled Magnesium Total Bilirubin AST ALT Alkaline Phosphatase Troponin I Total Protein Albumin Lipase 151 03/30/20 03/30/20 22:05 22:05 WBC RBC Hgb Hct MCV MCH MCHC RDW Plt Count MPV Immature Gran % Neutrophils % Lymphocytes % Monocytes % Eosinophils % Basophils % Absolute Neutrophils Absolute Lymphocytes Absolute Monocytes Absolute Eosinophils Absolute Basophils PT INR D-Dimer Sodium 140 Potassium 3.3 L Chloride 101 Carbon Dioxide 26.2 Anion Gap 12.8 H BUN 24 H Creatinine 1.57 H Estimated GFR/1.73 m2 32.96 Glucose 140 H Calcium 9.7 Magnesium Total Bilirubin AST ALT Alkaline Phosphatase Troponin I < 0.05 Total Protein Albumin Lipase Last Vital Signs Temp 36.6 C 03/30/20 22:20 Pulse 113 H 03/30/20 22:17 Resp 11 L 03/30/20 22:52 BP 155/90 H 03/30/20 22:17 Pulse Ox 98 03/30/20 22:40 COVID-19 Screening In the past 14 days, have you traveled outside of [place]?: NO Had IN PERSON contact w/suspected or confirmed C-19 person: No
[2020-03-31] VITALS (91 sets, daily range): BP systolic 119–185; BP diastolic 61–122; PULSE 84–120; RESP 7–36; TEMP 36–36.6; O2SAT 20–100
[2020-03-31] MEDS: ALPRAZolam 0.25 MG TAB PO ×2 (01:16→08:07)
[2020-03-31] MEDS: Nortriptyline 10 MG CAP 40 MG PO (01:16)
[2020-03-31] MEDS: Mirtazapine 15 MG TAB 7.5 MG PO (01:17)
[2020-03-31] MEDS: Potassium Chloride 20 MEQ TABCR 40 MEQ PO (01:18)
[2020-03-31] MEDS: Lactated Ringers 1,000 ML 75 ML IV ×2 (02:01→18:59)
[2020-03-31 02:46] LABS: Bilirubin Negative (Negative); Blood Moderate (Negative); Clarity Clear (Clear); Glucose Negative (Negative); Ketones Negative (Negative); Leukocyte Esterase Trace (Negative); Nitrite Negative (Negative); Urobilinogen 0.2 EU/dL (Up TO 0.2); pH 7.5 (5-8)
[2020-03-31 02:49] LABS: Bacteria Few HPF (Negative); C & S Indicated? Yes; Casts Negative LPF (Negative); Crystals Negative HPF (Negative); Epithelial Cells Few HPF (Negative); Mucus Negative (Negative)
[2020-03-31 05:59] LABS: Abs Immature Grans 0.01 k/cumm (0.0-0.09); Absolute Basophil Count 0.01 k/cumm (0.0-0.2); Absolute Eosinophil Count 0.08 k/cumm (0.0-0.7); Absolute Monocyte Count 0.64 k/cumm (0.11-0.7); Basophils % 0.1; Eosinophils % 0.9; HCT 34.1 % (36.0-46.0); HGB 11.2 g/dL (12.0-15.5); Immature Grans % 0.1 %; Lymphocytes % 33.2; Mean Corp. HGB Concentration 32.8 g/dL (32.0-36.0); Mean Corpuscular Hemoglobin 27.2 pg (27.0-33.0); Mean Corpuscular Volume 82.8 fL (80-95); Mean Platelet Volume 11.7 fL (8.0-11.0); Monocytes % 7.1; Neutrophils % 58.6; Platelet Count 197 x1000/uL (130-400); RBC 4.12 m/cumm (4.00-5.20); RBC Distribution Width 15.8 % (11.7-14.6); White Blood Cell Count 9.04 k/cumm (4.4-10.8)
[2020-03-31 06:11] LABS: PTT Activated 64.1 sec (21.0-31.4)
[2020-03-31 06:23] LABS: Anion Gap 10.3 mmol/L (3-11); BUN 22 mg/dL (7-18); CO2 28.7 mmol/L (21.0-32.0); CREATININE 1.48 mg/dL (0.55-1.02); Calcium 9.7 mg/dL (8.5-10.1); Chloride 102 mmol/L (98-107); Estimated GFR 35.29 (mL/min/1.73m2); Glucose 154 mg/dL (74-106); Magnesium 1.6 mg/dL (1.8-2.4); Potassium 3.7 mmol/L (3.5-5.1); Sodium 141 mmol/L (136-145); TSH (W/Ref FT4) 1.74 uIU/mL (0.36-3.74)
[2020-03-31] MEDS: Ondansetron 4 MG/2 ML VIAL IVP (07:46)
[2020-03-31] MEDS: Normal Saline Flush 10 ML SYR IVP ×8 (07:46→17:58)
[2020-03-31] MEDS: LORazepam 2 MG/ML VIAL 0.5 MG IVP (07:47)
[2020-03-31] MEDS: Acetaminophen 325 MG TAB PO (08:07)
--- NOTE | 2020-03-31 08:26 | PGE_ITS ---
Date of Service Date of service: 03/31/20 Time of Service: 11:11 Assessment and Plan Assessment and plan (1) Restlessness and agitation: Status: Acute Assessment and plan: Given the hx of abrupt cessation of lyrica, lyrica withdrawal is top of the differential. However, the patient was also initiated on mirtazapine, which, in combination with her other medications, could caused mild serotonin syndrome. I do not see evidence of clonus at this time, but she is tachycardic and quite restless. We will trial re-introducing lyrica and seeing if her symptoms improve. If they do, serotonin syndrome is less likely. If they do not, we will continue to hold serotonergic drugs. This includes zofran. Consult neurology tomorrow. Low threshold to upgrade to ICU level of care for any sign of autonomic instability. (2) Acute kidney injury superimposed on chronic kidney disease: Status: Acute Assessment and plan: Continue LR @ 75 ml/hr (3) Non-insulin dependent type 2 diabetes mellitus: Status: Acute Assessment and plan: Cover with SSI. On discharge, consider januvia. (4) Hypertension: Status: Chronic Assessment and plan: No change in tx at this time Qualifiers: Hypertension type: essential hypertension Qualified Code(s): I10 - Essential (primary) hypertension (5) Elevated d-dimer: Status: Acute Assessment and plan: Low index of suspicion. Awaiting venous doppler/VQ scan - for now, continue empiric heparin gtt. (6) Sinus tachycardia: Status: Acute Assessment and plan: As above - suspect that this is not due to a PE, but rather due to serotonin syndrome/lyrica withdrawal. Continue LR, monitoring on tele, prn benzos. (7) DVT prophylaxis: Status: Acute Assessment and plan: On therapeutic heparin gtt. (8) Discharge planning issues: Status: Acute Assessment and plan: Full code Low threshold to upgrade to ICU level of care. Subjective Subjective Interval history since last seen: Denies dizziness, chest pain, shortness of breath. Endorses nausea. No vomiting. Anxious/restless - this is chronic since she was a child, but it is also worse. She says that it was not so much restlessness that brought her in but her inability to sleep. She did not sleep last night. Upon talking to her more, it turned out that the patient stopped taking lyrica cold turkey because that's what she though her PCP told her to do in her telemedicine appointment. She said she did take 1 dose of a new white pill medicine (mirtazapine was a new prescription at the time of telehealth appointment that I can see). She took it on 03/25, she said, but didn't continue taking it because she was sick. Climbing out of bed on arrival to ICU. Toes hurt (chronic), RLS. Lower legs numb (chronic). Exam Narrative Exam Narrative: General: very anxious/restless/mildly agitated/irritable female, A&Ox3, moving incessantly while in bed, tangential in answering some questions HEENT: EOMI, MMM Heart: RRR, tachycardic, no m/r/g Lungs: CTAB Abdomen: soft, nontender, nondistended Extremities: no e/c/c BLE's, no clonus on BLE's; 1+ R patellar DTR, difficult to illicit L patellar DTR Objective Objective Clinical Data: Abnormal lab results 03/30/20 03/30/20 03/30/20 Range/Units 19:03 19:03 19:03 Hgb (12.0-15.5) g/dL Hct (36.0-46.0) % MCH 26.8 L (27.0-33.0) pg RDW 15.5 H (11.7-14.6) % MPV 11.3 H (8.0-11.0) fL Absolute Monocytes 0.72 H (0.11-0.7) k/cumm APTT (21.0-31.4) sec D-Dimer 671 H (<500) ng/mlFEU Potassium 3.3 L (3.5-5.1) mmol/L Anion Gap 13.9 H (3-11) mmol/L BUN 25 H (7-18) mg/dL Creatinine 1.61 H (0.55-1.02) mg/dL Glucose 152 H (74-106) mg/dL Calcium 10.2 H (8.5-10.1) mg/dL Magnesium 1.7 L (1.8-2.4) mg/dL Total Protein 9.4 H (6.4-8.2) g/dL Urine Protein (Negative) mg/dL Urine Blood (Negative) Ur Leukocyte Esterase (Negative) Urine RBC (0-2) [facility] 03/30/20 03/31/20 03/31/20 Range/Units 22:05 02:20 05:35 Hgb (12.0-15.5) g/dL Hct (36.0-46.0) % MCH (27.0-33.0) pg RDW (11.7-14.6) % MPV (8.0-11.0) fL Absolute Monocytes (0.11-0.7) k/cumm APTT (21.0-31.4) sec D-Dimer (<500) ng/mlFEU Potassium 3.3 L (3.5-5.1) mmol/L Anion Gap 12.8 H (3-11) mmol/L BUN 24 H 22 H (7-18) mg/dL Creatinine 1.57 H 1.48 H (0.55-1.02) mg/dL Glucose 140 H 154 H (74-106) mg/dL Calcium (8.5-10.1) mg/dL Magnesium 1.6 L (1.8-2.4) mg/dL Total Protein (6.4-8.2) g/dL Urine Protein 30 H (Negative) mg/dL Urine Blood Moderate H (Negative) Ur Leukocyte Esterase Trace H (Negative) Urine RBC 3-5 H (0-2) [facility] 03/31/20 03/31/20 Range/Units 05:35 05:35 Hgb 11.2 L (12.0-15.5) g/dL Hct 34.1 L (36.0-46.0) % MCH (27.0-33.0) pg RDW 15.8 H (11.7-14.6) % MPV 11.7 H (8.0-11.0) fL Absolute Monocytes (0.11-0.7) k/cumm APTT 64.1 H (21.0-31.4) sec D-Dimer (<500) ng/mlFEU Potassium (3.5-5.1) mmol/L Anion Gap (3-11) mmol/L BUN (7-18) mg/dL Creatinine (0.55-1.02) mg/dL Glucose (74-106) mg/dL Calcium (8.5-10.1) mg/dL Magnesium (1.8-2.4) mg/dL Total Protein (6.4-8.2) g/dL Urine Protein (Negative) mg/dL Urine Blood (Negative) Ur Leukocyte Esterase (Negative) Urine RBC (0-2) HPF Vital Signs Temperature 36.0 C L 03/31/20 03:34 Temperature Source Temporal Artery Scan 03/31/20 03:34 Pulse 108 H 03/31/20 03:20 Pulse 112 H 03/31/20 03:30 Respiratory Rate 21 03/31/20 03:10 Respiratory Effort Non-Labored 03/31/20 03:58 Respiratory Depth Normal 03/31/20 03:58 Respiratory Pattern Normal 03/31/20 03:58 Blood Pressure 173/80 H 03/31/20 03:20 Blood Pressure Mean 100 03/31/20 03:20 Blood Pressure Position Supine 03/31/20 00:40 Pulse Oximetry 100 03/31/20 00:40 Oxygen Delivery Method Room Air 03/31/20 03:58 Oxygen Flow Rate 0 03/31/20 03:58 Pain Level 7 03/31/20 08:07 Intake & Output 03/30/20 03/30/20 03/31/20 11:59 23:59 11:59 Intake Total 750 / 750 300 / 300 Output Total 550 / 550 Balance 750 / 750 -250 / -250 Weight 74.843 kg 76.4 kg Intake: IV 750 / 750 Oral 300 / 300 Output: Urine 550 / 550 Other: Urine Color Yellow Urine Appearance Clear Urine Odor None Voiding Methods Bedside Commode Laboratory Results WBC 9.04 k/cumm (4.4-10.8) 03/31/20 05:35 RBC 4.12 m/cumm (4.00-5.20) 03/31/20 05:35 Hgb 11.2 g/dL (12.0-15.5) L 03/31/20 05:35 Hct 34.1 % (36.0-46.0) L 03/31/20 05:35 MCV 82.8 fL (80-95) 03/31/20 05:35 MCH 27.2 pg (27.0-33.0) 03/31/20 05:35 MCHC 32.8 g/dL (32.0-36.0) 03/31/20 05:35 RDW 15.8 % (11.7-14.6) H 03/31/20 05:35 Plt Count 197 x1000/uL (130-400) 03/31/20 05:35 MPV 11.7 fL (8.0-11.0) H 03/31/20 05:35 Immature Gran % 0.1 % 03/31/20 05:35 Neutrophils % 58.6 03/31/20 05:35 Lymphocytes % 33.2 03/31/20 05:35 Monocytes % 7.1 03/31/20 05:35 Eosinophils % 0.9 03/31/20 05:35 Basophils % 0.1 03/31/20 05:35 Absolute Neutrophils 5.30 k/cumm (1.2-6.7) 03/31/20 05:35 Absolute Lymphocytes 3.00 k/cumm (1.2-3.4) 03/31/20 05:35 Absolute Monocytes 0.64 k/cumm (0.11-0.7) 03/31/20 05:35 Absolute Eosinophils 0.08 k/cumm (0.0-0.7) 03/31/20 05:35 Absolute Basophils 0.01 k/cumm (0.0-0.2) 03/31/20 05:35 PT 10.6 sec (9.3-11.0) 03/30/20 19:03 INR 1.1 (0.9-1.1) 03/30/20 19:03 APTT 64.1 sec (21.0-31.4) H 03/31/20 05:35 D-Dimer 671 ng/mlFEU (<500) H 03/30/20 19:03 Sodium 141 mmol/L (136-145) 03/31/20 05:35 Potassium 3.7 mmol/L (3.5-5.1) 03/31/20 05:35 Chloride 102 mmol/L (98-107) 03/31/20 05:35 Carbon Dioxide 28.7 mmol/L (21.0-32.0) 03/31/20 05:35 Anion Gap 10.3 mmol/L (3-11) 03/31/20 05:35 BUN 22 mg/dL (7-18) H 03/31/20 05:35 Creatinine 1.48 mg/dL (0.55-1.02) H 03/31/20 05:35 Estimated GFR/1.73 m2 35.29 (mL/min/1.73m2) 03/31/20 05:35 Glucose 154 mg/dL (74-106) H 03/31/20 05:35 Calcium 9.7 mg/dL (8.5-10.1) 03/31/20 05:35 Magnesium 1.6 mg/dL (1.8-2.4) L 03/31/20 05:35 Total Bilirubin 0.5 mg/dL (0.2-1.0) 03/30/20 19:03 AST 27 U/L (15-37) 03/30/20 19:03 ALT 30 U/L (14-59) 03/30/20 19:03 Alkaline Phosphatase 108 U/L (46-116) 03/30/20 19:03 Troponin I < 0.05 ng/mL (<0.06) 03/30/20 22:05 Total Protein 9.4 g/dL (6.4-8.2) H 03/30/20 19:03 Albumin 3.9 g/dL (3.4-5.0) 03/30/20 19:03 Lipase 151 U/L (73-393) 03/30/20 19:03 TSH 1.74 uIU/mL (0.36-3.74) 03/31/20 05:35 Urine Color Yellow (Yellow) 03/31/20 02:20 Urine Clarity Clear (Clear) 03/31/20 02:20 Urine pH 7.5 (5-8) 03/31/20 02:20 Ur Specific [place] 1.020 (1.005-1.025) 03/31/20 02:20 Urine Protein 30 mg/dL (Negative) H 03/31/20 02:20 Urine Ketones Negative mg/dL (Negative) 03/31/20 02:20 Urine Blood Moderate (Negative) H 03/31/20 02:20 Urine Nitrite Negative (Negative) 03/31/20 02:20 Urine Bilirubin Negative (Negative) 03/31/20 02:20 Urine Urobilinogen 0.2 EU/dL (Up TO 0.2) 03/31/20 02:20 Ur Leukocyte Esterase Trace (Negative) H 03/31/20 02:20 Urine RBC 3-5 HPF (0-2) H 03/31/20 02:20 Urine WBC 5-10 HPF (0-5) 03/31/20 02:20 Ur Epithelial Cells Few HPF (Negative) 03/31/20 02:20 Urine Crystals Negative HPF (Negative) 03/31/20 02:20 Urine Bacteria Few HPF (Negative) 03/31/20 02:20 Urine Casts Negative LPF (Negative) 03/31/20 02:20 Urine Mucus Negative (Negative) 03/31/20 02:20 Ur Culture Indicated? Yes 03/31/20 02:20 Urine Glucose Negative mg/dL (Negative) 03/31/20 02:20
[2020-03-31] MEDS: Pantoprazole 40 MG TABCR PO (08:35)
[2020-03-31] MEDS: Vitamins B Comp w/C TAB 1 TAB PO (08:35)
[2020-03-31] MEDS: Cholecalciferol (Vitamin D3) 1,000 UNIT TAB 1000 UNITS PO (08:35)
[2020-03-31 08:53] LABS: Troponin I < 0.05 ng/mL (<0.06)
--- NOTE | 2020-03-31 09:09 | INITIAL_ITS ---
- If Service Date Differs Date of service: 03/31/20 Time of Service: 09:09 Care Management Initial Assess REASON FOR HOSPITALIZATION:: Shortness of breath. PAST MEDICAL HISTORY/PAST SURGICAL HISTORY:: Medical History: Daytime somnolence, Diabetic neuropathy - a. Bilateral,. Esophageal stricture, GERD (gastroesophageal reflux disease), History of transient ischemic attack, History of umbilical hernia, Hyperlipidemia, Hypertension, Medical marijuana use, Nonalcoholic steatohepatitis, Restless leg syndrome, and Snoring. Surgical History: Arthroplasty of knee, Cholecystectomy, Endometrial Ablation, Oophrectomy, Left, Repair of umbilical hernia with mesh, and Repair, Tendon or Muscle - Achilles. PREVIOUS FUNCTIONAL STATUS/SOCIAL/FAMILY SUPPORTS:: Patient is a 61 year old female who resides in [facility]. Patient has two daughters one locally and one in [place]. 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 CM is unable to meet with Toyin today, due to her level of confusion and agitation. CURRENT FUNCTIONAL STATUS:: CM is unable to meet with Toyin today as she is getting progressively more agitated and confused. CM will follow up with either patient or her family tomorrow. ADVANCE DIRECTIVES:: None on file. Has patient been provided with info about the portal/API?: No Did the patient sign up for the portal?: No CODE STATUS:: Full Code INSURANCE COVERAGE / FINANCIAL ISSUES:: BCBS and Medicare. CURRENT HOME/COMMUNITY SERVICES/EQUIPMENT:: Unknown as CM was not able to meet with patient today. PRIMARY CARE PHYSICIAN:: Cass Abebe aprn ([facility]) POTENTIAL DISCHARGE NEEDS:: Follow up appointment with PCP. PATIENT/FAMILY EDUCATION NEEDS:: Discharge instructions, limitations, follow up plan of care, including Ask Me Three and self-management. ANTICIPATED BARRIERS TO DISCHARGE:: None identified at this time. TRANSPORTATION:: To be determined. PLAN:: To be determined once Toyin's medical condition stabilizes. CM will continue to support patient and discharge planning needs.
[2020-03-31] MEDS: Ketorolac 15 MG/ML VIAL IVP (09:51)
[2020-03-31] MEDS: Vitamin E 400 UNITS CAP PO (09:51)
[2020-03-31] MEDS: MAGNESIUM SULFATE 2 GM/50 ML BAG IVPB (09:51)
[2020-03-31] MEDS: LORazepam 2 MG/ML VIAL 1 MG IVP ×9 (10:18→16:23)
--- NOTE | 2020-03-31 11:09 | PHA.REVIEW ---
Pharmacy Admission Review - Admission Clinical Review (Last Updated 03/31/20 @ 01:03 by Zeke Marie) Insomnia (Acute) Sinus tachycardia (Acute) metoclopramide [From Reglan] Allergy (Verified 03/30/20 19:16) pollen extracts Allergy (Verified 03/30/20 19:16) propoxyphene HCl [From Darvon] Adverse Reaction (Verified 03/30/20 19:16) Nausea Height 5 ft 3 in Weight 76.4 kg - Renal Dosing Renal Dosing: BUN 22 mg/dL (7-18) H 03/31/20 05:35 Creatinine 1.48 mg/dL (0.55-1.02) H 03/31/20 05:35 Medications needing adjustments: Reviewed (CRCL ~37ML/MIN PER GLOBAL RPH) - Anticoagulation Anticoagulation: Hgb 11.2 g/dL (12.0-15.5) L 03/31/20 05:35 Hct 34.1 % (36.0-46.0) L 03/31/20 05:35 Plt Count 197 x1000/uL (130-400) 03/31/20 05:35 INR 1.1 (0.9-1.1) 03/30/20 19:03 Creatinine 1.48 mg/dL (0.55-1.02) H 03/31/20 05:35 DVT Prohphylaxis: Reviewed Medications: Heparin Therapeutic Anticoagulation: Reviewed Medications: Heparin - Opiate Usage Evaluate Pain Scale/Pains Meds: Reviewed Scheduled Bowel Reg ordered if on Opiates?: No - Relevant Labs Sodium 141 mmol/L (136-145) 03/31/20 05:35 Potassium 3.7 mmol/L (3.5-5.1) 03/31/20 05:35 Chloride 102 mmol/L (98-107) 03/31/20 05:35 Magnesium 1.6 mg/dL (1.8-2.4) L 03/31/20 05:35 Electrolytes, C-Reactive P, ESR: Reviewed (MAG BOLUS ORDERED) - DM Control DM Control: Glucose 154 mg/dL (74-106) H 03/31/20 05:35 Insulin Dosing: N/A - Heart Failure/MS Heart Failure/MS: Troponin I < 0.05 ng/mL (<0.06) 03/31/20 05:35 - BP Control BP Control: Blood Pressure [Right Arm] 155/83 Blood Pressure 119/79 Blood Pressure 175/66 Blood Pressure 173/80 Blood Pressure 146/93 Blood Pressure 146/93 Blood Pressure 167/80 - Qtc Review If Elevated: Reviewed (504, ondansetron PRN order(KR), mirtazapine(ME), nortriptyline(ME), pantoprazole(CR)) - IV to PO Switch IV Medications: Reviewed (IVF, some meds IV) - Home Meds Home Med List reviewed: Reviewed (tramadol and HCTZ not ordered) - Current meds Current Medication Order Review: Reviewed
[2020-03-31 11:42] LABS: PTT Activated 77.7 sec (21.0-31.4)
[2020-03-31] MEDS: Pregabalin 50 MG CAP 150 MG PO (11:53)
[2020-03-31] MEDS: Promethazine 25 MG TAB PO (13:21)
[2020-03-31 14:16] LABS: COVID-19 RT-PCR UVMMC Result Negative (Negative)
[2020-03-31] MEDS: diazePAM 10 MG/2 ML SYR IVP ×11 (14:43→20:24)
[2020-03-31] MEDS: LORazepam 20 MG/10 ML VIAL IVP ×3 (14:44→15:57)
--- NOTE | 2020-03-31 15:31 | W.PM.PROGNOT ---
Date of Service Date of service: 03/31/20 Time of Service: 15:31 Subjective Subjective Interval history since last seen: Ms Coley is getting progressively more agitated. She is now confused. Nursing have not felt safe to leave her side. She has been medicated with both ativan and valium, but still remains agitated. She still does not have clonus and has not been febrile, but her clinical story and picture are more consistent with serotonin syndrome. I am seeking a stat consultation with neurology. We are placing the patient on ativan gtt. Anesthesia is being made aware of possible need for intubation. She was made NPO. Cyprohepatdine's benefits strongly outweigh the risks right now, so we are planning on giving it unless neurology says otherwise. Total Critical Care Time 35 minutes. Objective Objective Clinical Data: Abnormal lab results 03/30/20 03/30/20 03/30/20 Range/Units 19:03 19:03 19:03 Hgb (12.0-15.5) g/dL Hct (36.0-46.0) % MCH 26.8 L (27.0-33.0) pg RDW 15.5 H (11.7-14.6) % MPV 11.3 H (8.0-11.0) fL Absolute Monocytes 0.72 H (0.11-0.7) k/cumm APTT (21.0-31.4) sec D-Dimer 671 H (<500) ng/mlFEU Potassium 3.3 L (3.5-5.1) mmol/L Anion Gap 13.9 H (3-11) mmol/L BUN 25 H (7-18) mg/dL Creatinine 1.61 H (0.55-1.02) mg/dL Glucose 152 H (74-106) mg/dL Calcium 10.2 H (8.5-10.1) mg/dL Magnesium 1.7 L (1.8-2.4) mg/dL Total Protein 9.4 H (6.4-8.2) g/dL Urine Protein (Negative) mg/dL Urine Blood (Negative) Ur Leukocyte Esterase (Negative) Urine RBC (0-2) HPF 03/30/20 03/31/20 03/31/20 Range/Units 22:05 02:20 05:35 Hgb (12.0-15.5) g/dL Hct (36.0-46.0) % MCH (27.0-33.0) pg RDW (11.7-14.6) % MPV (8.0-11.0) fL Absolute Monocytes (0.11-0.7) k/cumm APTT (21.0-31.4) sec D-Dimer (<500) ng/mlFEU Potassium 3.3 L (3.5-5.1) mmol/L Anion Gap 12.8 H (3-11) mmol/L BUN 24 H 22 H (7-18) mg/dL Creatinine 1.57 H 1.48 H (0.55-1.02) mg/dL Glucose 140 H 154 H (74-106) mg/dL Calcium (8.5-10.1) mg/dL Magnesium 1.6 L (1.8-2.4) mg/dL Total Protein (6.4-8.2) g/dL Urine Protein 30 H (Negative) mg/dL Urine Blood Moderate H (Negative) Ur Leukocyte Esterase Trace H (Negative) Urine RBC 3-5 H (0-2) HPF 03/31/20 03/31/20 03/31/20 Range/Units 05:35 05:35 11:22 Hgb 11.2 L (12.0-15.5) g/dL Hct 34.1 L (36.0-46.0) % MCH (27.0-33.0) pg RDW 15.8 H (11.7-14.6) % MPV 11.7 H (8.0-11.0) fL Absolute Monocytes (0.11-0.7) k/cumm APTT 64.1 H 77.7 H D (21.0-31.4) sec D-Dimer (<500) ng/mlFEU Potassium (3.5-5.1) mmol/L Anion Gap (3-11) mmol/L BUN (7-18) mg/dL Creatinine (0.55-1.02) mg/dL Glucose (74-106) mg/dL Calcium (8.5-10.1) mg/dL Magnesium (1.8-2.4) mg/dL Total Protein (6.4-8.2) g/dL Urine Protein (Negative) mg/dL Urine Blood (Negative) Ur Leukocyte Esterase (Negative) Urine RBC (0-2) HPF Vital Signs Temperature 36.2 C L 03/31/20 14:28 Temperature Source Temporal Artery Scan 03/31/20 14:28 Pulse 102 H 03/31/20 13:04 Pulse 96 H 03/31/20 13:04 Respiratory Rate 13 03/31/20 13:04 Respiratory Effort Non-Labored 03/31/20 07:30 Respiratory Depth Shallow 03/31/20 07:30 Respiratory Pattern Tachypnea 03/31/20 07:30 Blood Pressure 160/87 H 03/31/20 13:04 Blood Pressure Mean 105 03/31/20 13:04 Blood Pressure Position Supine 03/31/20 00:40 Pulse Oximetry 94 L 03/31/20 11:41 Oxygen Delivery Method Room Air 03/31/20 10:05 Oxygen Flow Rate 0 03/31/20 10:05 Pain Level 0 03/31/20 13:21 Comment 03/31/20 13:07 Intake & Output 03/30/20 03/31/20 03/31/20 23:59 11:59 23:59 Intake Total 750 / 750 499.817 / 499.817 0 / 499.817 Output Total 550 / 950 400 / 950 Balance 750 / 750 -50.183 / -450.183 -400 / -450.183 Weight 74.843 kg 76.4 kg Intake: IV 750 / 750 199.817 / 199.817 0 / 199.817 Oral 300 / 300 Output: Urine 550 / 950 400 / 950 Other: Urine Color Yellow Urine Appearance Clear Urine Odor None Voiding Methods Bedside Commode Laboratory Results WBC 9.04 k/cumm (4.4-10.8) 03/31/20 05:35 RBC 4.12 m/cumm (4.00-5.20) 03/31/20 05:35 Hgb 11.2 g/dL (12.0-15.5) L 03/31/20 05:35 Hct 34.1 % (36.0-46.0) L 03/31/20 05:35 MCV 82.8 fL (80-95) 03/31/20 05:35 MCH 27.2 pg (27.0-33.0) 03/31/20 05:35 MCHC 32.8 g/dL (32.0-36.0) 03/31/20 05:35 RDW 15.8 % (11.7-14.6) H 03/31/20 05:35 Plt Count 197 x1000/uL (130-400) 03/31/20 05:35 MPV 11.7 fL (8.0-11.0) H 03/31/20 05:35 Immature Gran % 0.1 % 03/31/20 05:35 Neutrophils % 58.6 03/31/20 05:35 Lymphocytes % 33.2 03/31/20 05:35 Monocytes % 7.1 03/31/20 05:35 Eosinophils % 0.9 03/31/20 05:35 Basophils % 0.1 03/31/20 05:35 Absolute Neutrophils 5.30 k/cumm (1.2-6.7) 03/31/20 05:35 Absolute Lymphocytes 3.00 k/cumm (1.2-3.4) 03/31/20 05:35 Absolute Monocytes 0.64 k/cumm (0.11-0.7) 03/31/20 05:35 Absolute Eosinophils 0.08 k/cumm (0.0-0.7) 03/31/20 05:35 Absolute Basophils 0.01 k/cumm (0.0-0.2) 03/31/20 05:35 PT 10.6 sec (9.3-11.0) 03/30/20 19:03 INR 1.1 (0.9-1.1) 03/30/20 19:03 APTT 77.7 sec (21.0-31.4) H D 03/31/20 11:22 D-Dimer 671 ng/mlFEU (<500) H 03/30/20 19:03 Sodium 141 mmol/L (136-145) 03/31/20 05:35 Potassium 3.7 mmol/L (3.5-5.1) 03/31/20 05:35 Chloride 102 mmol/L (98-107) 03/31/20 05:35 Carbon Dioxide 28.7 mmol/L (21.0-32.0) 03/31/20 05:35 Anion Gap 10.3 mmol/L (3-11) 03/31/20 05:35 BUN 22 mg/dL (7-18) H 03/31/20 05:35 Creatinine 1.48 mg/dL (0.55-1.02) H 03/31/20 05:35 Estimated GFR/1.73 m2 35.29 (mL/min/1.73m2) 03/31/20 05:35 Glucose 154 mg/dL (74-106) H 03/31/20 05:35 Calcium 9.7 mg/dL (8.5-10.1) 03/31/20 05:35 Magnesium 1.6 mg/dL (1.8-2.4) L 03/31/20 05:35 Total Bilirubin 0.5 mg/dL (0.2-1.0) 03/30/20 19:03 AST 27 U/L (15-37) 03/30/20 19:03 ALT 30 U/L (14-59) 03/30/20 19:03 Alkaline Phosphatase 108 U/L (46-116) 03/30/20 19:03 Troponin I < 0.05 ng/mL (<0.06) 03/31/20 05:35 Total Protein 9.4 g/dL (6.4-8.2) H 03/30/20 19:03 Albumin 3.9 g/dL (3.4-5.0) 03/30/20 19:03 Lipase 151 U/L (73-393) 03/30/20 19:03 TSH 1.74 uIU/mL (0.36-3.74) 03/31/20 05:35 Urine Color Yellow (Yellow) 03/31/20 02:20 Urine Clarity Clear (Clear) 03/31/20 02:20 Urine pH 7.5 (5-8) 03/31/20 02:20 Ur Specific [place] 1.020 (1.005-1.025) 03/31/20 02:20 Urine Protein 30 mg/dL (Negative) H 03/31/20 02:20 Urine Ketones Negative mg/dL (Negative) 03/31/20 02:20 Urine Blood Moderate (Negative) H 03/31/20 02:20 Urine Nitrite Negative (Negative) 03/31/20 02:20 Urine Bilirubin Negative (Negative) 03/31/20 02:20 Urine Urobilinogen 0.2 EU/dL (Up TO 0.2) 03/31/20 02:20 Ur Leukocyte Esterase Trace (Negative) H 03/31/20 02:20 Urine RBC 3-5 HPF (0-2) H 03/31/20 02:20 Urine WBC 5-10 HPF (0-5) 03/31/20 02:20 Ur Epithelial Cells Few HPF (Negative) 03/31/20 02:20 Urine Crystals Negative HPF (Negative) 03/31/20 02:20 Urine Bacteria Few HPF (Negative) 03/31/20 02:20 Urine Casts Negative LPF (Negative) 03/31/20 02:20 Urine Mucus Negative (Negative) 03/31/20 02:20 Ur Culture Indicated? Yes 03/31/20 02:20 Urine Glucose Negative mg/dL (Negative) 03/31/20 02:20 COVID-19 PCR Negative (Negative) 03/30/20 23:30 Nasopharyn COVID-19 PCR Not Applicable 03/30/20 23:30 Ref Test Perform Site [facility] 03/30/20 23:30
[2020-03-31] MEDS: THIAMINE 500 MG in Normal Saline 100 ML 200 MG IVPB (18:43)
--- NOTE | 2020-03-31 19:24 | NUR.NOTE ---
Arelis Cooley RN spoke with the daughters (Linda and Silvana Coley) and explained that the patient may be experiencing Seretonin Syndrome and/or Lyrica withdrawal. The patient has required increasing sedation and may need to be intubated. We spoke at length (19 min) and the daughters agreed with intubating the patient as needed. The daughters relayed that the patient had a similar experience several years ago when she mixed up her meds. The daughters are okay with us calling them after the intubation if we are unable to reach them before. Nursing Note:
[2020-03-31 20:09] LABS: PTT Activated 48.5 sec (21.0-31.4)
[2020-03-31 23:37] LABS: *AMPHETAMINES SCREEN URINE Negative (Negative); *BARBITURATES SCREEN URINE Negative (Negative); *BENZODIAZEPINES SCREEN URINE Negative (Negative); Cannabinoids THC POSITIVE (Negative); Cocaine Screen,Urine Negative (Negative); METHADONE URINE SCREEN Negative (Negative); OPIATES URINE SCREEN Negative (Negative)
[2020-04-01] VITALS (61 sets, daily range): BP systolic 109–152; BP diastolic 4–109; PULSE 69–90; RESP 14–28; TEMP 35.6–36.6; O2SAT 88–98
[2020-04-01] LABS: Tricyclic Antidepressants POSITIVE (Negative)
--- NOTE | 2020-04-01 | DI.CT_ITS ---
EXAM: CT HEAD WO CLINICAL HISTORY: UNCONTROLLED AGITATION. TECHNIQUE: Imaging Protocol: Axial computed tomography images with coronal and sagittal reformatted images were created and reviewed COMPARISON: No exams were available for comparison FINDINGS: There is patient motion artifact. There is cerebral atrophy consistent with the patient's age. No a cute intracranial hemorrhage, midline shift or mass effect is identified. The ventricles are intact. The basilar cisterns are patent. The visualized paranasal sinuses are clear as are the mastoid air cells. IMPRESSION: No acute intracranial process. RADIATION DOSE DELIVERED: 697.68mGy.cm Total DLP DATA REPOSITORY: All CT scans at this facility are submitted to the National Radiology Data Registry (NRDR) Dose Index Registry (DIR) with the [employer] (ACR). RADIATION OPTIMIZATION: All CT scans at this facility use at least one of these dose optimization te chniques: automated exposure control; mA and/or kV adjustment per patient size (includes targeted exa ms where dose is matched to clinical indication); or iterative reconstruction.
[2020-04-01] MEDS: THIAMINE 500 MG in Normal Saline 100 ML 200 MG IVPB ×3 (01:54→17:12)
[2020-04-01] MEDS: Lactated Ringers 1,000 ML 75 ML IV (06:28)
[2020-04-01 06:49] LABS: Anion Gap 9.5 mmol/L (3-11); BUN 19 mg/dL (7-18); CO2 26.5 mmol/L (21.0-32.0); CREATININE 1.69 mg/dL (0.55-1.02); Calcium 8.8 mg/dL (8.5-10.1); Chloride 105 mmol/L (98-107); Estimated GFR 30.28 (mL/min/1.73m2); Glucose 120 mg/dL (74-106); Magnesium 1.8 mg/dL (1.8-2.4); Potassium 3.8 mmol/L (3.5-5.1); Sodium 141 mmol/L (136-145)
[2020-04-01 06:58] LABS: Ammonia < 10 umol/L (11-32)
--- NOTE | 2020-04-01 07:00 | DI.NM_ITS ---
EXAM: NM LUNG SCAN VENT PERF AEROS CLINICAL HISTORY: CP, tachycardia, elevated d-dimer. TECHNIQUE: Injected Dose: Ventilation: 35 mCi Tc-99m DTPA via inhalation Perfusion: 4.5 mCi Tc-99m MAA via IV COMPARISON: CR,XR XR CHEST 2V PA LATERAL from 03/30/2020 FINDINGS: Chest X-Ray: Clear lungs. Perfusion: Normal. Ventilation:Ventilation images limited to anterior and posterior only. IMPRESSION: 1. Low probability VQ examination. . . . Modified PIOPED II criteria Probability Criteria High Two or more segments of V/Q mismatch Low Normal Perfusion, Non segmental perfusion abnormalitie s, pleural effusion in at least 1/3 of pleural cavity with no other defect Radiograph/perfusion matched defect in mid to upper lung confined to segment, one to three small segmental perfusion defects (<25% of segment) Perfusion defect smaller than corresponding radiogra phic lesion. Intermediate All other findings DATA REPOSITORY:
--- NOTE | 2020-04-01 07:00 | DI.US_ITS ---
EXAM: US EXTREMITY VENOUS BI CLINICAL HISTORY: elevated d-dimer. TECHNIQUE: Bilateral lower extremity venous ultrasound performed using grayscale, color-flow, and sp ectral Doppler analysis. COMPARISON: No exams were available for comparison FINDINGS: The bilateral common femoral, femoral and popliteal veins demonstrate normal compressibility, augment ation, and color Doppler. The posterior tibial veins are patent. The saphenofemoral junctions are unr emarkable. There is no evidence of a Townsend's cyst. The soft tissues are unremarkable. IMPRESSION: Right: Negative for DVT Left: Negative for DVT DATA REPOSITORY:
[2020-04-01 07:03] LABS: PTT Activated 76.4 sec (21.0-31.4)
[2020-04-01 07:40] LABS: Vitamin B12 456 pg/mL (193-986)
--- NOTE | 2020-04-01 08:20 | PGE_ITS ---
Date of Service Date of service: 04/01/20 Time of Service: 11:11 Assessment and Plan Assessment and plan (1) Restlessness and agitation: Status: Acute Assessment and plan: Agitated delirium. Given the hx of abrupt cessation of lyrica, lyrica withdrawal is top of the differential. However, the patient was also initiated on mirtazapine, which, in combination with her other medications, could caused mild serotonin syndrome, though this is much less likely. On ativan gtt. Will await formal neurology and psychiatry recommendations. Discussed with [facility] neuro yesterday: investigating other reasons for encephalopathy/delirium. (2) Acute kidney injury superimposed on chronic kidney disease: Status: Acute Assessment and plan: Increase IVF. (3) Non-insulin dependent type 2 diabetes mellitus: Status: Acute Assessment and plan: Cover with SSI. On discharge, consider januvia. (4) Hypertension: Status: Chronic Assessment and plan: No change in tx at this time Qualifiers: Hypertension type: essential hypertension Qualified Code(s): I10 - Essential (primary) hypertension (5) Elevated d-dimer: Status: Acute Assessment and plan: Low index of suspicion, but awaitingvenous doppler/VQ scan - for now, continue empiric heparin gtt. (6) Sinus tachycardia: Status: Acute Assessment and plan: As above - suspect that this is not due to a PE, but rather due to lyrica withdrawal +/- serotonin syndrome. Continue LR, prn benzos. (7) DVT prophylaxis: Status: Acute Assessment and plan: On therapeutic heparin gtt. (8) Discharge planning issues: Status: Acute Assessment and plan: Full code Upgraded to ICU level of care yesterday. Total Critical Care Time 45 minutes. Subjective Subjective Interval history since last seen: For CT head soon. Asleep, responsive to painful, but not verbal stimuli. On 10 mg/hr of ativan. No agitation. Afebrile. UOP - 400 overnight. Can't take PO meds. No hallucinations reported. Remains on heparin gtt. No signs of respiratory depression. Case discussed with psychiatry: lyrica withdrawal can, in fact, look like alcohol withdrawal due to action on SRAVANI receptors, possibly explaining the symptoms. It is possible, but less likely that there is also serotonin syndrome. Exam Narrative Exam Narrative: General: Middle-aged female, sedated on ativan gtt, arousable to pain, but not to voice. No signs of respiratory depression HEENT: eyes closed, PERRLA, MMM Heart: RRR, no m/r/g Lungs: CTAB Abdomen: soft, nontender, nondistended Extremities: no e/c/c BLE's Objective Objective Clinical Data: Abnormal lab results 03/31/20 03/31/20 03/31/20 Range/Units 02:20 05:35 11:22 APTT 77.7 H D (21.0-31.4) sec BUN 22 H (7-18) mg/dL Creatinine 1.48 H (0.55-1.02) mg/dL Glucose 154 H (74-106) mg/dL Magnesium 1.6 L (1.8-2.4) mg/dL Ammonia (11-32) umol/L Ur Tricyclics Screen Positive A (Negative) Ur THC Screen Positive A (Negative) 03/31/20 04/01/20 04/01/20 Range/Units 19:45 06:23 06:23 APTT 48.5 H D 76.4 H D (21.0-31.4) sec BUN 19 H (7-18) mg/dL Creatinine 1.69 H (0.55-1.02) mg/dL Glucose 120 H (74-106) mg/dL Magnesium (1.8-2.4) mg/dL Ammonia (11-32) umol/L Ur Tricyclics Screen (Negative) Ur THC Screen (Negative) 04/01/20 Range/Units 06:23 APTT (21.0-31.4) sec BUN (7-18) mg/dL Creatinine (0.55-1.02) mg/dL Glucose (74-106) mg/dL Magnesium (1.8-2.4) mg/dL Ammonia < 10 L (11-32) umol/L Ur Tricyclics Screen (Negative) Ur THC Screen (Negative) Vital Signs Temperature 36.0 C L 04/01/20 08:08 Temperature Source Temporal Artery Scan 04/01/20 08:08 Pulse 81 04/01/20 08:08 Pulse 79 04/01/20 06:01 Respiratory Rate 21 04/01/20 08:08 Respiratory Effort 04/01/20 04:44 Respiratory Depth Deep 04/01/20 04:44 Respiratory Pattern Normal 04/01/20 04:44 Blood Pressure 118/68 04/01/20 08:08 Blood Pressure Mean 85 04/01/20 06:01 Blood Pressure Position Supine 04/01/20 04:44 Pulse Oximetry 92 L 04/01/20 08:08 Oxygen Delivery Method Room Air 04/01/20 08:08 Oxygen Flow Rate 0 04/01/20 08:08 Pain Level 0 04/01/20 08:08 Comment 03/31/20 13:07 Intake & Output 03/31/20 03/31/20 04/01/20 11:59 23:59 11:59 Intake Total 499.817 / 2394.217 1894.400 / 2394.217 740.0 / 740.0 Output Total 750 / 2575 1825 / 2575 400 / 400 Balance -250.183 / -180.783 69.400 / -180.783 340.0 / 340.0 Weight 76.4 kg 76.4 kg Intake: IV 199.817 / 7008.283 9507.400 / 1794.217 740.0 / 740.0 Oral 300 / 600 300 / 600 Output: Urine 750 / 2575 1825 / 2575 400 / 400 Other: Urine Color Yellow Yellow Dark Delmi Brown Urine Appearance Clear Clear Sediment Urine Odor Normal Comment Suh in place draining clear yellow urine. Suh patent draining clear yellow urine. Voiding Methods Bedside Commode Bedside Commode Laboratory Results WBC 9.04 k/cumm (4.4-10.8) 03/31/20 05:35 RBC 4.12 m/cumm (4.00-5.20) 03/31/20 05:35 Hgb 11.2 g/dL (12.0-15.5) L 03/31/20 05:35 Hct 34.1 % (36.0-46.0) L 03/31/20 05:35 MCV 82.8 fL (80-95) 03/31/20 05:35 MCH 27.2 pg (27.0-33.0) 03/31/20 05:35 MCHC 32.8 g/dL (32.0-36.0) 03/31/20 05:35 RDW 15.8 % (11.7-14.6) H 03/31/20 05:35 Plt Count 197 x1000/uL (130-400) 03/31/20 05:35 MPV 11.7 fL (8.0-11.0) H 03/31/20 05:35 Immature Gran % 0.1 % 03/31/20 05:35 Neutrophils % 58.6 03/31/20 05:35 Lymphocytes % 33.2 03/31/20 05:35 Monocytes % 7.1 03/31/20 05:35 Eosinophils % 0.9 03/31/20 05:35 Basophils % 0.1 03/31/20 05:35 Absolute Neutrophils 5.30 k/cumm (1.2-6.7) 03/31/20 05:35 Absolute Lymphocytes 3.00 k/cumm (1.2-3.4) 03/31/20 05:35 Absolute Monocytes 0.64 k/cumm (0.11-0.7) 03/31/20 05:35 Absolute Eosinophils 0.08 k/cumm (0.0-0.7) 03/31/20 05:35 Absolute Basophils 0.01 k/cumm (0.0-0.2) 03/31/20 05:35 PT 10.6 sec (9.3-11.0) 03/30/20 19:03 INR 1.1 (0.9-1.1) 03/30/20 19:03 APTT 76.4 sec (21.0-31.4) H D 04/01/20 06:23 D-Dimer 671 ng/mlFEU (<500) H 03/30/20 19:03 Sodium 141 mmol/L (136-145) 04/01/20 06:23 Potassium 3.8 mmol/L (3.5-5.1) 04/01/20 06:23 Chloride 105 mmol/L (98-107) 04/01/20 06:23 Carbon Dioxide 26.5 mmol/L (21.0-32.0) 04/01/20 06:23 Anion Gap 9.5 mmol/L (3-11) 04/01/20 06:23 BUN 19 mg/dL (7-18) H 04/01/20 06:23 Creatinine 1.69 mg/dL (0.55-1.02) H 04/01/20 06:23 Estimated GFR/1.73 m2 30.28 (mL/min/1.73m2) 04/01/20 06:23 Glucose 120 mg/dL (74-106) H 04/01/20 06:23 Calcium 8.8 mg/dL (8.5-10.1) 04/01/20 06:23 Magnesium 1.8 mg/dL (1.8-2.4) 04/01/20 06:23 Total Bilirubin 0.5 mg/dL (0.2-1.0) 03/30/20 19:03 AST 27 U/L (15-37) 03/30/20 19:03 ALT 30 U/L (14-59) 03/30/20 19:03 Alkaline Phosphatase 108 U/L (46-116) 03/30/20 19:03 Ammonia < 10 umol/L (11-32) L 04/01/20 06:23 Troponin I < 0.05 ng/mL (<0.06) 03/31/20 05:35 Total Protein 9.4 g/dL (6.4-8.2) H 03/30/20 19:03 Albumin 3.9 g/dL (3.4-5.0) 03/30/20 19:03 Lipase 151 U/L (73-393) 03/30/20 19:03 Vitamin B12 456 pg/mL (193-986) 04/01/20 06:23 TSH 1.74 uIU/mL (0.36-3.74) 03/31/20 05:35 Urine Color Yellow (Yellow) 03/31/20 02:20 Urine Clarity Clear (Clear) 03/31/20 02:20 Urine pH 7.5 (5-8) 03/31/20 02:20 Ur Specific [place] 1.020 (1.005-1.025) 03/31/20 02:20 Urine Protein 30 mg/dL (Negative) H 03/31/20 02:20 Urine Ketones Negative mg/dL (Negative) 03/31/20 02:20 Urine Blood Moderate (Negative) H 03/31/20 02:20 Urine Nitrite Negative (Negative) 03/31/20 02:20 Urine Bilirubin Negative (Negative) 03/31/20 02:20 Urine Urobilinogen 0.2 EU/dL (Up TO 0.2) 03/31/20 02:20 Ur Leukocyte Esterase Trace (Negative) H 03/31/20 02:20 Urine RBC 3-5 HPF (0-2) H 03/31/20 02:20 Urine WBC 5-10 HPF (0-5) 03/31/20 02:20 Ur Epithelial Cells Few HPF (Negative) 03/31/20 02:20 Urine Crystals Negative HPF (Negative) 03/31/20 02:20 Urine Bacteria Few HPF (Negative) 03/31/20 02:20 Urine Casts Negative LPF (Negative) 03/31/20 02:20 Urine Mucus Negative (Negative) 03/31/20 02:20 Ur Culture Indicated? Yes 03/31/20 02:20 Urine Glucose Negative mg/dL (Negative) 03/31/20 02:20 Urine Opiates Screen Negative (Negative) 03/31/20 02:20 Urine Methadone Screen Negative (Negative) 03/31/20 02:20 Ur Barbiturates Screen Negative (Negative) 03/31/20 02:20 Ur Tricyclics Screen Positive (Negative) A 03/31/20 02:20 Ur Amphetamines Screen Negative (Negative) 03/31/20 02:20 U Benzodiazepines Scrn Negative (Negative) 03/31/20 02:20 Urine Cocaine Screen Negative (Negative) 03/31/20 02:20 Ur THC Screen Positive (Negative) A 03/31/20 02:20 COVID-19 PCR Negative (Negative) 03/30/20 23:30 Nasopharyn COVID-19 PCR Not Applicable 03/30/20 23:30 Ref Test Perform Site [facility] 03/30/20 23:30 CT head w/o contrast, VQ scan, venous dopplers BLE's pending.
[2020-04-01 08:32] LABS: Abs Immature Grans 0.01 k/cumm (0.0-0.09); Absolute Basophil Count 0.02 k/cumm (0.0-0.2); Absolute Eosinophil Count 0.13 k/cumm (0.0-0.7); Absolute Lymphocyte Count 2.76 k/cumm (1.2-3.4); Absolute Monocyte Count 0.47 k/cumm (0.11-0.7); Absolute Neutrophil Count 3.33 k/cumm (1.2-6.7); Basophils % 0.3; Eosinophils % 1.9; HCT 29.8 % (36.0-46.0); Immature Grans % 0.1 %; Lymphocytes % 41.1; Mean Corp. HGB Concentration 31.9 g/dL (32.0-36.0); Mean Corpuscular Hemoglobin 27.1 pg (27.0-33.0); Mean Corpuscular Volume 85.1 fL (80-95); Mean Platelet Volume 11.4 fL (8.0-11.0); Neutrophils % 49.6; Platelet Count 179 x1000/uL (130-400); RBC Distribution Width 16.4 % (11.7-14.6); White Blood Cell Count 6.72 k/cumm (4.4-10.8)
[2020-04-01 08:35] LABS: HGB 9.5 g/dL (12.0-15.5)
[2020-04-01 09:20] LABS: Procalcitonin < 0.1 ng/mL
--- NOTE | 2020-04-01 10:00 | NUR.NOTE ---
Ultra sound of legs is being performed in room.Nursing Note:
--- NOTE | 2020-04-01 11:03 | PHA.REVIEW ---
Pharmacy Admission Review - Admission Clinical Review (Last Updated 03/31/20 @ 01:03 by Zeke Marie) Elevated d-dimer (Acute) Discharge planning issues (Acute) DVT prophylaxis (Acute) Non-insulin dependent type 2 diabetes mellitus (Acute) Acute kidney injury superimposed on chronic kidney disease (Acute) Restlessness and agitation (Acute) Insomnia (Acute) Sinus tachycardia (Acute) metoclopramide [From Reglan] Allergy (Verified 03/30/20 19:16) pollen extracts Allergy (Verified 03/30/20 19:16) propoxyphene HCl [From Darvon] Adverse Reaction (Verified 03/30/20 19:16) Nausea Height 5 ft 3 in Weight 76.4 kg - Comments Comments/Follow Ups: suspects that patient is experiencing withdrawal side effects from stopping Lyrica ( no taper) or Serotonin syndrome-like episodes. PE to be ruled out as well. Patient is acutely anxious REQUIRING lORAZEPAM INFUSION @ 10mg/HR - Renal Dosing Renal Dosing: BUN 19 mg/dL (7-18) H 04/01/20 06:23 Creatinine 1.69 mg/dL (0.55-1.02) H 04/01/20 06:23 Medications needing adjustments: Reviewed (est CrCl~ 27 mL/min) - Anticoagulation Anticoagulation: Hgb 9.5 g/dL (12.0-15.5) L 04/01/20 07:55 Hct 29.8 % (36.0-46.0) L 04/01/20 07:55 Plt Count 179 x1000/uL (130-400) 04/01/20 07:55 INR 1.1 (0.9-1.1) 03/30/20 19:03 Creatinine 1.69 mg/dL (0.55-1.02) H 04/01/20 06:23 Medications: Heparin - Opiate Usage Evaluate Pain Scale/Pains Meds: N/A Scheduled Bowel Reg ordered if on Opiates?: Yes - Relevant Labs Sodium 141 mmol/L (136-145) 04/01/20 06:23 Potassium 3.8 mmol/L (3.5-5.1) 04/01/20 06:23 Chloride 105 mmol/L (98-107) 04/01/20 06:23 Magnesium 1.8 mg/dL (1.8-2.4) 04/01/20 06:23 - DM Control DM Control: Glucose 120 mg/dL (74-106) H 04/01/20 06:23 Insulin Dosing: N/A - Heart Failure/PA Heart Failure/PA: Troponin I < 0.05 ng/mL (<0.06) 03/31/20 05:35 EF%, ANNETTE's, B-Blockers, Diuretics: N/A - BP Control BP Control: Blood Pressure [Right Arm] 131/59 Blood Pressure [Right Arm] 122/62 Blood Pressure 118/59 Blood Pressure 118/59 Blood Pressure 118/49 Blood Pressure 132/64 Blood Pressure 118/68 Blood Pressure 118/68 Blood Pressure 133/60 Blood Pressure 129/56 Blood Pressure 138/67 Blood Pressure 135/63 Blood Pressure 131/59 Blood Pressure 116/58 Blood Pressure 121/55 Blood Pressure 137/64 Blood Pressure 136/63 Blood Pressure 122/62 If elevated: N/A - Qtc Review If Elevated: Reviewed (QTc-502 Protonix, Phenergan,while here) - IV to PO Switch IV Medications: Reviewed (On Lorazepam Drip for acute anxiety. Heparin drip DC once PE ruled out) - Home Meds Home Med List reviewed: Reviewed (HCTZ, Ibuprofen, Mirtazapine, Nortripyline not ordered. Lyrica stopped.) - Current meds Current Medication Order Review: Reviewed
--- NOTE | 2020-04-01 11:14 | W.PSYCHCONSU ---
Date of service: 04/01/20 Time of Service: 08:30 History of Present Illness History of Present Illness Chief Complaint: alterned mental status Narrative: Dr. Lisa Hernandez requested psychiatric consultation on Toyin Coley for mnagement of agitation and altered mental status. I discussed the patient with the medical team in morning meeting this morning. Dr. Hernandez reviewed the patient's history as much as is known at this time, but she and Care Management team will try to get more information from her outpatient medical team and family. I do note that a nursing note in the chart indicates that daughters report a similar presentation a fews years back when patient mixed up her medications. A formal psychiatric consultation will be conducted with the patient if possible and if indicated when the patient is alert. At this time, it is believed that patient started mirtazapine 7.5mg at home as prescribed by her PCP for anxiety in addition to nortriptyline and tramadol which she takes for neuropathic pain. It is also believed that patient may have suddenly stopped taking Lyrica, to the contrary of instructions per PCP note, three days prior to presentation to the ED and that symptoms began upon her sudden discontinuation. In the ED there was concern for need to rule out PE. Since admission to the ICU, patient has had worsening altered mental status to quite somnolent, unable to take oral medications, and needing lorazepam 10mg/hr IV to control agitation. A Neurology consultation has been ordered. Assessment and Plan Assessment and plan (1) Altered mental status: Status: Acute Assessment and plan: Toyin Coley is a 64 year old female with past medical history of restless leg syndrome and diabetic neuropathy and recent worsening anxiety and daytime sleepiness who presented to [facility] ED two days ago, was admitted to rule out PE and has had increased somnolence and agitation since. I agree with the medical teams differential of Lyrica withdrawal symptoms, serotonin syndrome, other cause of altered mental status and PE or some combination of the above. I agree with the neurology consultation. Recommendations: - continue to hold her tramadol, mirtazapine, nortriptyline, Lyrica. - continue lorazepam IV as needed for management of agitation that may be related to Lyrica withdrawal and monitor for respiratory depression, however, lorazepam may increase somnolence. - continue work up for all causes of altered mental status including head CT - obtain more information from her family and from outpatient providers regarding her functional status and confirm medications and diagnoses, especially in light of possibility that such confusional event has happened in the past. I will be able to participate in morning meeting again on Wednesday04/03/2020 for further discussion of this patient and her psychiatric needs. I can meet meet with the patient 04/03 or 04/04 [id number] or by video if indicated. Thank you very much for including me in Toyin Coley' care. Qualifiers: Altered mental status type: somnolence Qualified Code(s): R40.0 - Somnolence [facility] Medical History (Updated 04/01/20 @ 11:35 by Pam Chang MD) Daytime somnolence (Acute) Diabetic neuropathy (Chronic) a. Bilateral. Esophageal stricture (Chronic) GERD (gastroesophageal reflux disease) (Chronic) History of transient ischemic attack (Chronic) History of umbilical hernia (Acute) Hyperlipidemia (Acute) Hypertension (Chronic) Medical marijuana use (Chronic) Nonalcoholic steatohepatitis (Chronic) Restless leg syndrome (Chronic) Snoring (Acute) Surgical History Arthroplasty of knee Cholecystectomy Endometrial Ablation Oophrectomy, Left Repair of umbilical hernia with mesh Repair, Tendon or Muscle Achilles Family History Mother Diabetes Father Heart disease Substance abuse Brother Substance abuse Depression Heart disease Social History Smoking/Tobacco Use Status: Never Alcohol Intake: current Alcohol Intake frequency: holidays/special occasions only Drug use: Never Substance use type: marijuana Adopted: No Caregiver/Support person: No Foster care: No Household members: none Housing: house Do you need help understanding health information?: Rarely current occupation: [employer] Sexually active: No Do you think of yourself as: straight/heterosexual Current gender identity: female Do you feel safe at home: Yes Results Last Vital Signs Temp 35.9 C L 04/01/20 10:57 Pulse 74 04/01/20 10:57 Resp 16 04/01/20 10:57 BP 118/59 L 04/01/20 10:57 Pulse Ox 96 04/01/20 11:13 Labs Result diagrams: 04/01/20 07:55 04/01/20 06:23 Labs: Laboratory Results - last 24 hr 03/30/20 03/31/20 03/31/20 23:30 02:20 11:22 WBC RBC Hgb Hct MCV MCH MCHC RDW Plt Count MPV Immature Gran % Neutrophils % Lymphocytes % Monocytes % Eosinophils % Basophils % Absolute Neutrophils Absolute Lymphocytes Absolute Monocytes Absolute Eosinophils Absolute Basophils APTT 77.7 H D Sodium Potassium Chloride Carbon Dioxide Anion Gap BUN Creatinine Estimated GFR/1.73 m2 Glucose Calcium Magnesium Ammonia Vitamin B12 Procalcitonin Urine Opiates Screen Negative Urine Methadone Screen Negative Ur Barbiturates Screen Negative Ur Tricyclics Screen Positive A Ur Amphetamines Screen Negative U Benzodiazepines Scrn Negative Urine Cocaine Screen Negative Ur THC Screen Positive A COVID-19 PCR Negative Nasopharyn COVID-19 PCR Not Applicable Ref Test Perform Site [facility] 03/31/20 04/01/20 04/01/20 19:45 06:23 06:23 WBC RBC Hgb Hct MCV MCH MCHC RDW Plt Count MPV Immature Gran % Neutrophils % Lymphocytes % Monocytes % Eosinophils % Basophils % Absolute Neutrophils Absolute Lymphocytes Absolute Monocytes Absolute Eosinophils Absolute Basophils APTT 48.5 H D 76.4 H D Sodium 141 Potassium 3.8 Chloride 105 Carbon Dioxide 26.5 Anion Gap 9.5 BUN 19 H Creatinine 1.69 H Estimated GFR/1.73 m2 30.28 Glucose 120 H Calcium 8.8 Magnesium 1.8 Ammonia Vitamin B12 Procalcitonin Urine Opiates Screen Urine Methadone Screen Ur Barbiturates Screen Ur Tricyclics Screen Ur Amphetamines Screen U Benzodiazepines Scrn Urine Cocaine Screen Ur THC Screen COVID-19 PCR Nasopharyn COVID-19 PCR Ref Test Perform Site 04/01/20 04/01/20 04/01/20 06:23 06:23 07:55 WBC RBC Hgb Hct MCV MCH MCHC RDW Plt Count MPV Immature Gran % Neutrophils % Lymphocytes % Monocytes % Eosinophils % Basophils % Absolute Neutrophils Absolute Lymphocytes Absolute Monocytes Absolute Eosinophils Absolute Basophils APTT Sodium Potassium Chloride Carbon Dioxide Anion Gap BUN Creatinine Estimated GFR/1.73 m2 Glucose Calcium Magnesium Ammonia < 10 L Vitamin B12 456 Procalcitonin < 0.1 Urine Opiates Screen Urine Methadone Screen Ur Barbiturates Screen Ur Tricyclics Screen Ur Amphetamines Screen U Benzodiazepines Scrn Urine Cocaine Screen Ur THC Screen COVID-19 PCR Nasopharyn COVID-19 PCR Ref Test Perform Site 04/01/20 07:55 WBC 6.72 RBC 3.50 L Hgb 9.5 L Hct 29.8 L MCV 85.1 MCH 27.1 MCHC 31.9 L RDW 16.4 H Plt Count 179 MPV 11.4 H Immature Gran % 0.1 Neutrophils % 49.6 Lymphocytes % 41.1 Monocytes % 7.0 Eosinophils % 1.9 Basophils % 0.3 Absolute Neutrophils 3.33 Absolute Lymphocytes 2.76 Absolute Monocytes 0.47 Absolute Eosinophils 0.13 Absolute Basophils 0.02 APTT Sodium Potassium Chloride Carbon Dioxide Anion Gap BUN Creatinine Estimated GFR/1.73 m2 Glucose Calcium Magnesium Ammonia Vitamin B12 Procalcitonin Urine Opiates Screen Urine Methadone Screen Ur Barbiturates Screen Ur Tricyclics Screen Ur Amphetamines Screen U Benzodiazepines Scrn Urine Cocaine Screen Ur THC Screen COVID-19 PCR Nasopharyn COVID-19 PCR Ref Test Perform Site
--- NOTE | 2020-04-01 11:32 | NUR.NOTE ---
Patient awakens from her sleep. MD present. Patient is lethargic, but in good control.Nursing Note:
--- NOTE | 2020-04-01 13:34 | NUR.NOTE ---
Patient placed on a hover mat in anticipation of transport to radiology.Nursing Note:
--- NOTE | 2020-04-01 15:35 | PDOC.CMPRO ---
- If Service Date Differs Date of service: 04/01/20 Time of Service: 15:36 Care Management Progress Note S/O: CM was unable to meet with Toyin today as she is on an Ativan drip and is unresponsive to verbal stimuli. She had a CT of the head today which was negative for any acute intracranial process. Dr. Ramos was consulted today and has made some recommendations regarding medication changes. Toyin's vital signs remain stable and her oxygen saturation levels remain in the high 90's on 1 liter of nasal oxygen. A: Toyin is a 64 year old woman admitted on 03/30/20 with restlessness and agitation as well as GETACHEW superimposed on CKD. P:To be determined once Toyin's medical condition stabilizes. CM will continue to support patient and discharge planning needs.
--- NOTE | 2020-04-01 15:40 | NUR.NOTE ---
Patient returns to ICU after undergoing head CT and VQ scan of lungs.Nursing Note:
[2020-04-01] MEDS: Lactated Ringers 1,000 ML 125 ML IV ×2 (15:46→23:23)
--- NOTE | 2020-04-01 15:49 | NUR.NOTE ---
APTT is drawn by lab.Nursing Note:
[2020-04-01] MEDS: cloNIDine 0.1 MG PATCH TD (15:54)
[2020-04-01 17:20] LABS: PTT Activated 52.8 sec (21.0-31.4)
--- NOTE | 2020-04-01 17:25 | NUR.NOTE ---
RN dc's Heparin drip per MD order.Nursing Note:
[2020-04-02] VITALS (67 sets, daily range): BP systolic 105–165; BP diastolic 47–89; PULSE 65–86; RESP 14–28; TEMP 35.6–36.9; O2SAT 86–99
--- NOTE | 2020-04-02 | DI.RAD_ITS ---
EXAM: XR PORTABLE CHEST AP CLINICAL HISTORY: ?aspiration TECHNIQUE: COMPARISON: CR,XR XR CHEST 2V PA LATERAL from 03/30/2020 FINDINGS: Portable semi upright chest film was obtained. There is a poor inspiration. Cardiac size appears wi thin normal limits. No gross pulmonary consolidation seen. No pleural effusion on this frontal view . IMPRESSION: No evidence of acute process. No gross interval change from examination of March 30.
[2020-04-02] MEDS: THIAMINE 500 MG in Normal Saline 100 ML 200 MG IVPB ×3 (02:05→17:48)
[2020-04-02 07:36] LABS: Abs Immature Grans 0.02 k/cumm (0.0-0.09); Absolute Basophil Count 0.02 k/cumm (0.0-0.2); Absolute Eosinophil Count 0.15 k/cumm (0.0-0.7); Absolute Neutrophil Count 3.22 k/cumm (1.2-6.7); Basophils % 0.3; Eosinophils % 2.3; HCT 30.9 % (36.0-46.0); HGB 9.6 g/dL (12.0-15.5); Immature Grans % 0.3 %; Lymphocytes % 37.8; Mean Corp. HGB Concentration 31.1 g/dL (32.0-36.0); Mean Corpuscular Hemoglobin 26.6 pg (27.0-33.0); Mean Corpuscular Volume 85.6 fL (80-95); Mean Platelet Volume 11.4 fL (8.0-11.0); Monocytes % 10.6; Neutrophils % 48.7; Platelet Count 162 x1000/uL (130-400); RBC 3.61 m/cumm (4.00-5.20); White Blood Cell Count 6.61 k/cumm (4.4-10.8)
[2020-04-02 08:06] LABS: Ferritin 25 ng/mL (8-252); Magnesium 1.6 mg/dL (1.8-2.4)
--- NOTE | 2020-04-02 08:23 | W.PM.PROGNOT ---
Date of Service Date of service: 04/02/20 Time of Service: 13:52 Assessment and Plan Assessment and plan (1) Restlessness and agitation: Status: Acute Assessment and plan: Agitated delirium due to lyrica withdrawal. Now has a clonidine patch on. Wean ativan gtt as tolerated. Keep in ICU. Goal is not to keep fully sedated but to keep from being agitated/anxious. (2) Acute kidney injury superimposed on chronic kidney disease: Status: Acute Assessment and plan: Continue IVF at current rate. (3) Non-insulin dependent type 2 diabetes mellitus: Status: Acute Assessment and plan: Cover with SSI. On discharge, consider januvia. (4) Hypertension: Status: Chronic Assessment and plan: No change in tx at this time Qualifiers: Hypertension type: essential hypertension Qualified Code(s): I10 - Essential (primary) hypertension (5) Elevated d-dimer: Status: Acute Assessment and plan: DVT/PT ruled out. Off heparin gtt. No further workup. (6) Sinus tachycardia: Status: Acute Assessment and plan: Due to lyrica withdrawal. Resolved on ativan gtt. (7) DVT prophylaxis: Status: Acute Assessment and plan: SC heparin (8) Discharge planning issues: Status: Acute Assessment and plan: Full code Keep in ICU. Total Critical Care Time 45 minutes. Discussed with daughter. Subjective Subjective Interval history since last seen: Agitated last night, requiring 12 mg/hr of ativan. Also required 5L of O2 - down to 1 L now. On 8 mg/hr this morning, now back up to 10 mg/hr. Sedated at the time of my exam and cannot answer questions. UOP improved. H/o alcohol abuse - stopped 10 years ago, reportedly. Exam Narrative Exam Narrative: General: Middle-aged female, sedated on ativan gtt, arousable to pain. No signs of respiratory depression, but is wearing oxygen (1L, 95%) HEENT: eyes closed, Pupils pinpoint today, MMM Heart: RRR, no m/r/g Lungs: CTAB Abdomen: soft, nontender, nondistended Extremities: no e/c/c BLE's Objective Objective Clinical Data: Abnormal lab results 04/01/20 04/01/20 04/02/20 Range/Units 07:55 16:40 06:45 RBC 3.50 L (4.00-5.20) m/cumm Hgb 9.5 L (12.0-15.5) g/dL Hct 29.8 L (36.0-46.0) % MCHC 31.9 L (32.0-36.0) g/dL RDW 16.4 H (11.7-14.6) % MPV 11.4 H (8.0-11.0) fL APTT 52.8 H D (21.0-31.4) sec Magnesium 1.6 L (1.8-2.4) mg/dL Vital Signs Temperature 36.5 C 04/02/20 01:34 Temperature Source Temporal Artery Scan 04/02/20 01:34 Pulse 75 04/02/20 05:01 Pulse 78 04/02/20 05:01 Respiratory Rate 18 04/02/20 05:01 Respiratory Effort 04/02/20 01:34 Respiratory Depth Normal 04/02/20 01:34 Respiratory Pattern Normal 04/02/20 01:34 Blood Pressure 148/61 H 04/02/20 05:01 Blood Pressure Mean 83 04/02/20 05:01 Blood Pressure Position Supine 04/02/20 01:34 Pulse Oximetry 99 04/02/20 05:59 Oxygen Delivery Method Nasal Cannula 04/02/20 05:59 Oxygen Flow Rate 5 04/02/20 05:59 Pain Level 0 04/02/20 01:34 Comment 03/31/20 13:07 Intake & Output 04/01/20 04/01/20 04/02/20 11:59 23:59 11:59 Intake Total 1116.033 / 3312.500 2196.467 / 3312.500 284.633 / 284.633 Output Total 550 / 1200 650 / 1200 1400 / 1400 Balance 566.033 / 2112.500 1546.467 / 2112.500 -1115.367 / -1115.367 Weight 76.4 kg 80.1 kg Intake: IV 1116.033 / 3312.500 2196.467 / 3312.500 284.633 / 284.633 Output: Urine 550 / 1200 650 / 1200 1400 / 1400 Other: Urine Color [address] Yellow Yellow Straw Urine Appearance Cloudy Sediment Clear Urine Odor Strong Foul Comment visualized urine. says if color becomes more red she will consider stopping the heparin drip. Yellow urine draining from patent mi. Yellow urine draining from patent mi. Voiding Methods Indwelling Catheter Laboratory Results WBC 6.72 k/cumm (4.4-10.8) 04/01/20 07:55 RBC 3.50 m/cumm (4.00-5.20) L 04/01/20 07:55 Hgb 9.5 g/dL (12.0-15.5) L 04/01/20 07:55 Hct 29.8 % (36.0-46.0) L 04/01/20 07:55 MCV 85.1 fL (80-95) 04/01/20 07:55 MCH 27.1 pg (27.0-33.0) 04/01/20 07:55 MCHC 31.9 g/dL (32.0-36.0) L 04/01/20 07:55 RDW 16.4 % (11.7-14.6) H 04/01/20 07:55 Plt Count 179 x1000/uL (130-400) 04/01/20 07:55 MPV 11.4 fL (8.0-11.0) H 04/01/20 07:55 Immature Gran % 0.1 % 04/01/20 07:55 Neutrophils % 49.6 04/01/20 07:55 Lymphocytes % 41.1 04/01/20 07:55 Monocytes % 7.0 04/01/20 07:55 Eosinophils % 1.9 04/01/20 07:55 Basophils % 0.3 04/01/20 07:55 Absolute Neutrophils 3.33 k/cumm (1.2-6.7) 04/01/20 07:55 Absolute Lymphocytes 2.76 k/cumm (1.2-3.4) 04/01/20 07:55 Absolute Monocytes 0.47 k/cumm (0.11-0.7) 04/01/20 07:55 Absolute Eosinophils 0.13 k/cumm (0.0-0.7) 04/01/20 07:55 Absolute Basophils 0.02 k/cumm (0.0-0.2) 04/01/20 07:55 PT 10.6 sec (9.3-11.0) 03/30/20 19:03 INR 1.1 (0.9-1.1) 03/30/20 19:03 APTT 52.8 sec (21.0-31.4) H D 04/01/20 16:40 D-Dimer 671 ng/mlFEU (<500) H 03/30/20 19:03 Sodium 141 mmol/L (136-145) 04/01/20 06:23 Potassium 3.8 mmol/L (3.5-5.1) 04/01/20 06:23 Chloride 105 mmol/L (98-107) 04/01/20 06:23 Carbon Dioxide 26.5 mmol/L (21.0-32.0) 04/01/20 06:23 Anion Gap 9.5 mmol/L (3-11) 04/01/20 06:23 BUN 19 mg/dL (7-18) H 04/01/20 06:23 Creatinine 1.69 mg/dL (0.55-1.02) H 04/01/20 06:23 Estimated GFR/1.73 m2 30.28 (mL/min/1.73m2) 04/01/20 06:23 Glucose 120 mg/dL (74-106) H 04/01/20 06:23 Calcium 8.8 mg/dL (8.5-10.1) 04/01/20 06:23 Magnesium 1.6 mg/dL (1.8-2.4) L 04/02/20 06:45 Ferritin 25 ng/mL (8-252) 04/02/20 06:45 Total Bilirubin 0.5 mg/dL (0.2-1.0) 03/30/20 19:03 AST 27 U/L (15-37) 03/30/20 19:03 ALT 30 U/L (14-59) 03/30/20 19:03 Alkaline Phosphatase 108 U/L (46-116) 03/30/20 19:03 Ammonia < 10 umol/L (11-32) L 04/01/20 06:23 Troponin I < 0.05 ng/mL (<0.06) 03/31/20 05:35 Total Protein 9.4 g/dL (6.4-8.2) H 03/30/20 19:03 Albumin 3.9 g/dL (3.4-5.0) 03/30/20 19:03 Lipase 151 U/L (73-393) 03/30/20 19:03 Vitamin B12 456 pg/mL (193-986) 04/01/20 06:23 Procalcitonin < 0.1 ng/mL 04/01/20 07:55 TSH 1.74 uIU/mL (0.36-3.74) 03/31/20 05:35 Urine Color Yellow (Yellow) 03/31/20 02:20 Urine Clarity Clear (Clear) 03/31/20 02:20 Urine pH 7.5 (5-8) 03/31/20 02:20 Ur Specific [place] 1.020 (1.005-1.025) 03/31/20 02:20 Urine Protein 30 mg/dL (Negative) H 03/31/20 02:20 Urine Ketones Negative mg/dL (Negative) 03/31/20 02:20 Urine Blood Moderate (Negative) H 03/31/20 02:20 Urine Nitrite Negative (Negative) 03/31/20 02:20 Urine Bilirubin Negative (Negative) 03/31/20 02:20 Urine Urobilinogen 0.2 EU/dL (Up TO 0.2) 03/31/20 02:20 Ur Leukocyte Esterase Trace (Negative) H 03/31/20 02:20 Urine RBC 3-5 HPF (0-2) H 03/31/20 02:20 Urine WBC 5-10 HPF (0-5) 03/31/20 02:20 Ur Epithelial Cells Few HPF (Negative) 03/31/20 02:20 Urine Crystals Negative HPF (Negative) 03/31/20 02:20 Urine Bacteria Few HPF (Negative) 03/31/20 02:20 Urine Casts Negative LPF (Negative) 03/31/20 02:20 Urine Mucus Negative (Negative) 03/31/20 02:20 Ur Culture Indicated? Yes 03/31/20 02:20 Urine Glucose Negative mg/dL (Negative) 03/31/20 02:20 Urine Opiates Screen Negative (Negative) 03/31/20 02:20 Urine Methadone Screen Negative (Negative) 03/31/20 02:20 Ur Barbiturates Screen Negative (Negative) 03/31/20 02:20 Ur Tricyclics Screen Positive (Negative) A 03/31/20 02:20 Ur Amphetamines Screen Negative (Negative) 03/31/20 02:20 U Benzodiazepines Scrn Negative (Negative) 03/31/20 02:20 Urine Cocaine Screen Negative (Negative) 03/31/20 02:20 Ur THC Screen Positive (Negative) A 03/31/20 02:20 COVID-19 PCR Negative (Negative) 03/30/20 23:30 Nasopharyn COVID-19 PCR Not Applicable 03/30/20 23:30 Ref Test Perform Site [facility] 03/30/20 23:30 CXR: No evidence of acute process. No gross interval change from examination of March 30.
[2020-04-02] MEDS: Heparin 5,000 UNITS/ML VIAL 5000 UNITS SC ×2 (08:47→20:00)
[2020-04-02 08:49] LABS: Diff Comment Diff Reviewed; RBC Morphology Normal
[2020-04-02] MEDS: Lactated Ringers 1,000 ML 125 ML IV ×2 (09:14→16:59)
--- NOTE | 2020-04-02 09:16 | NUR.NOTE ---
RN spends 30 mintues talking about patient's care with patient's daughter who is in room.Nursing Note:
[2020-04-02 09:40] LABS: Anion Gap 8.8 mmol/L (3-11); BUN 17 mg/dL (7-18); CO2 26.2 mmol/L (21.0-32.0); CREATININE 1.58 mg/dL (0.55-1.02); Calcium 8.7 mg/dL (8.5-10.1); Chloride 106 mmol/L (98-107); Estimated GFR 32.72 (mL/min/1.73m2); Glucose 94 mg/dL (74-106); Potassium 3.8 mmol/L (3.5-5.1); Sodium 141 mmol/L (136-145)
--- NOTE | 2020-04-02 11:10 | NS.NUTBLAN_ITS ---
Date of service: 04/02/20 Time of Service: 11:10 Nutritional Consult ASSESSMENT: 64 year old female admitted into ICU, on ativan drip and unresponsive. Possible lyrica withdrawl, sinus tachycardia. PMH: non insulin dep. diabetes with acute kidney injury with CKD. NPO day 3. At high n utritional risk in view of not meeting nutrient needs for basal needs. Receiving IV fluids however prolonged period of lack of protein (>3 days) puts pt at risk for loss of lean body mass. If unable to meet nutrient/protein needs by mouth by 04/04/20, recommend NG tube and enteral support. Recent labs indicate improving renal function, BS wnl. BMI 31, 156% [place] body Weight. Estimated Needs: 2747-8247 kcal, 60-72 g protein, 2000 ml fluid NUTRITIONAL DIAGNOSIS: inadequate calorie and protein intake due to unresponsive state INTERVENTION: if unable to wean off ativan by 04/04/20, consider enteral support via NG to maintain lean body mass. recommend glucerna 1.5 @ 42 cc/hour (Total volume: 1000ml), flush 200 ml q 4 hours (d/c IV fluids if enteral support provided) provides total of 1500 kcal, 60 g protein, 1920 ml free fluid. MONITORING AND EVALUATION: will monitor nutrient and fluid intake, labs, weight Time Spent in Nutritional Counseling and Treatment: 0 time spent face to face
[2020-04-02] MEDS: MAGNESIUM SULFATE 2 GM/50 ML BAG IVPB (11:47)
--- NOTE | 2020-04-02 12:06 | NUR.NOTE ---
MD advised that patient's daughter would like to meet with her. MD says she will meet with patient by 13:00 today. Daughter is pleased with said news.Nursing Note:
--- NOTE | 2020-04-02 14:09 | NUR.NOTE ---
Patient is given mouth care. Patient welcomes same.Nursing Note:
--- NOTE | 2020-04-02 16:29 | PDOC.CMPRO ---
- If Service Date Differs Date of service: 04/02/20 Time of Service: 16:29 Care Management Progress Note S/O: CM was unable to meet with Toyin today as she is on an Ativan drip and is unresponsive to verbal stimuli. Efforts to wean her Ativan last night resulted in increased agitation requiring an increase of Ativan to 12mg/hr. Her vital signs remain stable. A: Toyin is a 64 year old woman admitted on 03/30/20 with restlessness and agitation as well as GETACHEW superimposed on CKD. P:To be determined once Toyin's medical condition stabilizes. CM will continue to support patient and discharge planning needs.
--- NOTE | 2020-04-02 18:13 | RESPIRATORY ---
Respiratory spoke with patients daughters concerning the listing of KINGSLEY in their mother's medical history. Both daughters stated patient had a sleep study about a year ago but does not use a CPAP or any type of machine along with no use of oxygen at night. Daughter's stated neither of them know that this was even listed in her medical history and will be following up on it.
--- NOTE | 2020-04-02 18:43 | NUR.NOTE ---
Lorazepam drip decreased to 6mg/hr. Patient is calm and lightly sedated. Daughter by bedside.Nursing Note:
[2020-04-02] MEDS: Ketorolac 15 MG/ML VIAL IVP (20:00)
[2020-04-02] MEDS: Normal Saline Flush 10 ML SYR IVP (20:13)
--- NOTE | 2020-04-02 22:44 | NUR.NOTE ---
pt woke from sleep restless, confused attempting multiple times to disrobe, pull out indwelling catheter and remove monitoring devices, pt repositioned, assessed for pain. Indwelling catheter has adequate output, pt unable to be redirected. lorazepam gtt increased to 8mg/hr
[2020-04-03] VITALS (51 sets, daily range): BP systolic 116–193; BP diastolic 45–127; PULSE 68–87; RESP 11–28; TEMP 36–36.3; O2SAT 88–100
--- NOTE | 2020-04-03 | DI.US_ITS ---
EXAM: US RENAL CLINICAL HISTORY: GETACHEW/CKD TECHNIQUE: Ultrasound performed using standard protocol. COMPARISON: US US EXTREMITY VENOUS BI from 04/01/2020 FINDINGS: Kidneys are normal in size and shape. There is no evidence of a renal mass, hydronephrosis, or nephr olithiasis. Urinary bladder is not ideally visualized but grossly unremarkable with Suh catheter i n place ureteral jets were noted bilaterally. IMPRESSION: Somewhat limited scan due to patient's inability to cooperate. No evidence urinary tract obstruction . DATA REPOSITORY:
[2020-04-03] MEDS: diazePAM 10 MG/2 ML SYR IVP ×5 (00:01→20:34)
[2020-04-03] MEDS: THIAMINE 500 MG in Normal Saline 100 ML 200 MG IVPB ×2 (01:27→11:28)
--- NOTE | 2020-04-03 01:35 | NUR.NOTE ---
pt restless and unable to be redirected. multiple attempts to pull at lines, leads and catheters, pt stood to side of bed with 2+ assist, pt too altered to stand without assistance. pt back in resting position still restless and telling staff I need to get up.
[2020-04-03] MEDS: Lactated Ringers 1,000 ML 125 ML IV ×3 (01:46→18:14)
[2020-04-03] MEDS: MORPHine 2 MG/ML SYR IVP (02:07)
[2020-04-03 07:07] LABS: Abs Immature Grans 0.01 k/cumm (0.0-0.09); Absolute Basophil Count 0.02 k/cumm (0.0-0.2); Absolute Lymphocyte Count 2.27 k/cumm (1.2-3.4); Absolute Monocyte Count 0.48 k/cumm (0.11-0.7); Absolute Neutrophil Count 3.68 k/cumm (1.2-6.7); Basophils % 0.3; Eosinophils % 1.5; HCT 28.8 % (36.0-46.0); HGB 9.3 g/dL (12.0-15.5); Immature Grans % 0.2 %; Lymphocytes % 34.6; Mean Corp. HGB Concentration 32.3 g/dL (32.0-36.0); Mean Corpuscular Hemoglobin 27.2 pg (27.0-33.0); Mean Corpuscular Volume 84.2 fL (80-95); Mean Platelet Volume 11.4 fL (8.0-11.0); Monocytes % 7.3; Neutrophils % 56.1; Platelet Count 178 x1000/uL (130-400); RBC 3.42 m/cumm (4.00-5.20); RBC Distribution Width 15.5 % (11.7-14.6); White Blood Cell Count 6.56 k/cumm (4.4-10.8)
[2020-04-03 07:11] LABS: Anion Gap 8.6 mmol/L (3-11); BUN 13 mg/dL (7-18); CO2 26.4 mmol/L (21.0-32.0); CREATININE 1.47 mg/dL (0.55-1.02); Calcium 8.7 mg/dL (8.5-10.1); Chloride 107 mmol/L (98-107); Estimated GFR 35.56 (mL/min/1.73m2); Glucose 99 mg/dL (74-106); Magnesium 1.7 mg/dL (1.8-2.4); Potassium 3.6 mmol/L (3.5-5.1); Sodium 142 mmol/L (136-145)
[2020-04-03] MEDS: Heparin 5,000 UNITS/ML VIAL 5000 UNITS SC ×2 (08:08→19:59)
--- NOTE | 2020-04-03 08:18 | PGE_ITS ---
Date of Service Date of service: 04/03/20 Time of Service: 11:33 Assessment and Plan Assessment and plan (1) Restlessness and agitation: Status: Acute Assessment and plan: Agitated delirium due to lyrica withdrawal. S/p clonidine patch, on ativan gtt - wean as tolerated. Keep in ICU. Reintroduce lyrica when able (2) Acute kidney injury superimposed on chronic kidney disease: Status: Acute Assessment and plan: Continue IVF at current rate. (3) Non-insulin dependent type 2 diabetes mellitus: Status: Acute Assessment and plan: Cover with SSI. On discharge, consider januvia. (4) Hypertension: Status: Chronic Assessment and plan: No change in tx at this time Qualifiers: Hypertension type: essential hypertension Qualified Code(s): I10 - Essential (primary) hypertension (5) Elevated d-dimer: Status: Acute Assessment and plan: DVT/PT ruled out. Off heparin gtt. No further workup. (6) Sinus tachycardia: Status: Resolved Assessment and plan: Due to lyrica withdrawal. Resolved on ativan gtt. (7) Iron deficiency: Status: Acute Assessment and plan: Replete with IV iron (8) Restless leg syndrome: Status: Chronic Assessment and plan: Given h/o iron deficiency, will replete and monitor. provide prn toradol. Avoid narcotics, if possible. (9) DVT prophylaxis: Status: Acute Assessment and plan: SC heparin (10) Discharge planning issues: Status: Acute Assessment and plan: Full code Keep in ICU. Total Critical Care Time 45 minutes. Subjective Subjective Interval history since last seen: Ms Coley is a little bit more awake and tearful, but no verbalizing why. She shortly falls asleep. Not answering my questions. On ativan 4 mg/hr. Overnight on 6 mg/hr - struggled. 1:1 all night. This am - agitated, moving around the bed with nursing. Stood up. Unable to open eyes. Could weight bear. Now asleep. UOP ok. 85% when asleep - now on 1 L. Exam Narrative Exam Narrative: General: Middle-aged female, briefly awake - tearful, then asleep, No signs of respiratory depression, but is wearing oxygen HEENT: opens eyes to command, Pupils pinpoint today, MMM Heart: RRR, no m/r/g Lungs: CTAB Abdomen: soft, nontender, nondistended Extremities: no e/c/c BLE's Objective Objective Clinical Data: Abnormal lab results 04/02/20 04/02/20 04/03/20 Range/Units 06:45 06:45 06:20 RBC 3.61 L 3.42 L (4.00-5.20) m/cumm Hgb 9.6 L 9.3 L (12.0-15.5) g/dL Hct 30.9 L 28.8 L (36.0-46.0) % MCH 26.6 L (27.0-33.0) pg MCHC 31.1 L (32.0-36.0) g/dL RDW 16.0 H 15.5 H (11.7-14.6) % MPV 11.4 H 11.4 H (8.0-11.0) fL Creatinine 1.58 H (0.55-1.02) mg/dL Magnesium (1.8-2.4) mg/dL 04/03/20 Range/Units 06:20 RBC (4.00-5.20) m/cumm Hgb (12.0-15.5) g/dL Hct (36.0-46.0) % MCH (27.0-33.0) pg MCHC (32.0-36.0) g/dL RDW (11.7-14.6) % MPV (8.0-11.0) fL Creatinine 1.47 H (0.55-1.02) mg/dL Magnesium 1.7 L (1.8-2.4) mg/dL Vital Signs Temperature 36.1 C L 04/03/20 07:35 Temperature Source Temporal Artery Scan 04/03/20 07:35 Pulse 74 04/03/20 07:35 Pulse 70 04/02/20 19:01 Respiratory Rate 16 04/03/20 07:35 Respiratory Effort Non-Labored 04/03/20 07:35 Respiratory Depth Normal 04/03/20 07:35 Respiratory Pattern Normal 04/03/20 07:35 Blood Pressure 153/70 H 04/03/20 07:35 Blood Pressure Mean 97 04/03/20 07:35 Blood Pressure Position Supine 04/03/20 07:35 Pulse Oximetry 98 06/24/20 07:35 Oxygen Delivery Method Nasal Cannula 04/03/20 07:35 Oxygen Flow Rate 1 04/03/20 07:35 Pain Level 0 04/03/20 07:35 Comment 04/03/20 07:27 Intake & Output 04/02/20 04/02/20 04/03/20 11:59 23:59 11:59 Intake Total 1320.366 / 2677.349 1356.983 / 2677.349 1081.367 / 1081.367 Output Total 1400 / 2950 1550 / 2950 2250 / 2250 Balance -79.634 / -272.651 -193.017 / -272.651 -1168.633 / -1168.633 Weight 80.1 kg Intake: IV 1320.366 / 2677.349 1356.983 / 2677.349 1081.367 / 1081.367 Output: Urine 1400 / 2950 1550 / 2950 2250 / 2250 Other: Urine Color Yellow Yellow Yellow Urine Appearance Clear Clear Clear Urine Odor Normal Normal Comment Patient has a mi catheter draining adequate amounts of clear yellow urine. mi to gravity Patient has a mi catheter that is draining adequate amounts of clear yellow urine. Voiding Methods Indwelling Catheter Indwelling Catheter Laboratory Results WBC 6.56 k/cumm (4.4-10.8) 04/03/20 06:20 RBC 3.42 m/cumm (4.00-5.20) L 04/03/20 06:20 Hgb 9.3 g/dL (12.0-15.5) L 04/03/20 06:20 Hct 28.8 % (36.0-46.0) L 04/03/20 06:20 MCV 84.2 fL (80-95) 04/03/20 06:20 MCH 27.2 pg (27.0-33.0) 04/03/20 06:20 MCHC 32.3 g/dL (32.0-36.0) 04/03/20 06:20 RDW 15.5 % (11.7-14.6) H 04/03/20 06:20 Plt Count 178 x1000/uL (130-400) 04/03/20 06:20 MPV 11.4 fL (8.0-11.0) H 04/03/20 06:20 Immature Gran % 0.2 % 04/03/20 06:20 Neutrophils % 56.1 04/03/20 06:20 Lymphocytes % 34.6 04/03/20 06:20 Monocytes % 7.3 04/03/20 06:20 Eosinophils % 1.5 04/03/20 06:20 Basophils % 0.3 04/03/20 06:20 Absolute Neutrophils 3.68 k/cumm (1.2-6.7) 04/03/20 06:20 Absolute Lymphocytes 2.27 k/cumm (1.2-3.4) 04/03/20 06:20 Absolute Monocytes 0.48 k/cumm (0.11-0.7) 04/03/20 06:20 Absolute Eosinophils 0.10 k/cumm (0.0-0.7) 04/03/20 06:20 Absolute Basophils 0.02 k/cumm (0.0-0.2) 04/03/20 06:20 Differential Comment Diff reviewed 04/02/20 06:45 RBC Morphology Normal 04/02/20 06:45 PT 10.6 sec (9.3-11.0) 03/30/20 19:03 INR 1.1 (0.9-1.1) 03/30/20 19:03 APTT 52.8 sec (21.0-31.4) H D 04/01/20 16:40 D-Dimer 671 ng/mlFEU (<500) H 03/30/20 19:03 Sodium 142 mmol/L (136-145) 04/03/20 06:20 Potassium 3.6 mmol/L (3.5-5.1) 04/03/20 06:20 Chloride 107 mmol/L (98-107) 04/03/20 06:20 Carbon Dioxide 26.4 mmol/L (21.0-32.0) 04/03/20 06:20 Anion Gap 8.6 mmol/L (3-11) 04/03/20 06:20 BUN 13 mg/dL (7-18) 04/03/20 06:20 Creatinine 1.47 mg/dL (0.55-1.02) H 04/03/20 06:20 Estimated GFR/1.73 m2 35.56 (mL/min/1.73m2) 04/03/20 06:20 Glucose 99 mg/dL (74-106) 04/03/20 06:20 Calcium 8.7 mg/dL (8.5-10.1) 04/03/20 06:20 Magnesium 1.7 mg/dL (1.8-2.4) L 04/03/20 06:20 Ferritin 25 ng/mL (8-252) 04/02/20 06:45 Total Bilirubin 0.5 mg/dL (0.2-1.0) 03/30/20 19:03 AST 27 U/L (15-37) 03/30/20 19:03 ALT 30 U/L (14-59) 03/30/20 19:03 Alkaline Phosphatase 108 U/L (46-116) 03/30/20 19:03 Ammonia < 10 umol/L (11-32) L 04/01/20 06:23 Troponin I < 0.05 ng/mL (<0.06) 03/31/20 05:35 Total Protein 9.4 g/dL (6.4-8.2) H 03/30/20 19:03 Albumin 3.9 g/dL (3.4-5.0) 03/30/20 19:03 Lipase 151 U/L (73-393) 03/30/20 19:03 Vitamin B12 456 pg/mL (193-986) 04/01/20 06:23 Procalcitonin < 0.1 ng/mL 04/01/20 07:55 TSH 1.74 uIU/mL (0.36-3.74) 03/31/20 05:35 Urine Color Yellow (Yellow) 03/31/20 02:20 Urine Clarity Clear (Clear) 03/31/20 02:20 Urine pH 7.5 (5-8) 03/31/20 02:20 Ur Specific Polo 1.020 (1.005-1.025) 03/31/20 02:20 Urine Protein 30 mg/dL (Negative) H 03/31/20 02:20 Urine Ketones Negative mg/dL (Negative) 03/31/20 02:20 Urine Blood Moderate (Negative) H 03/31/20 02:20 Urine Nitrite Negative (Negative) 03/31/20 02:20 Urine Bilirubin Negative (Negative) 03/31/20 02:20 Urine Urobilinogen 0.2 EU/dL (Up TO 0.2) 03/31/20 02:20 Ur Leukocyte Esterase Trace (Negative) H 03/31/20 02:20 Urine RBC 3-5 HPF (0-2) H 03/31/20 02:20 Urine WBC 5-10 HPF (0-5) 03/31/20 02:20 Ur Epithelial Cells Few HPF (Negative) 03/31/20 02:20 Urine Crystals Negative HPF (Negative) 03/31/20 02:20 Urine Bacteria Few HPF (Negative) 03/31/20 02:20 Urine Casts Negative LPF (Negative) 03/31/20 02:20 Urine Mucus Negative (Negative) 03/31/20 02:20 Ur Culture Indicated? Yes 03/31/20 02:20 Urine Glucose Negative mg/dL (Negative) 03/31/20 02:20 Urine Opiates Screen Negative (Negative) 03/31/20 02:20 Urine Methadone Screen Negative (Negative) 03/31/20 02:20 Ur Barbiturates Screen Negative (Negative) 03/31/20 02:20 Ur Tricyclics Screen Positive (Negative) A 03/31/20 02:20 Ur Amphetamines Screen Negative (Negative) 03/31/20 02:20 U Benzodiazepines Scrn Negative (Negative) 03/31/20 02:20 Urine Cocaine Screen Negative (Negative) 03/31/20 02:20 Ur THC Screen Positive (Negative) A 03/31/20 02:20 COVID-19 PCR Negative (Negative) 03/30/20 23:30 Nasopharyn COVID-19 PCR Not Applicable 03/30/20 23:30 Ref Test Perform Site [place] [facility] lab 03/30/20 23:30
--- NOTE | 2020-04-03 09:03 | W.NEUROCONSU ---
Date of service: 04/03/20 Time of Service: 09:03 Assessment and Plan Assessment and plan (1) Altered mental status: Status: Acute Qualifiers: Altered mental status type: somnolence Qualified Code(s): R40.0 - Somnolence (2) Restless leg syndrome: Status: Chronic (3) Diabetic neuropathy: Status: Chronic Qualifiers: Diabetes mellitus type: type 2 Diabetes mellitus complication detail: diabetic polyneuropathy Qualified Code(s): E11.42 - Type 2 diabetes mellitus with diabetic polyneuropathy (4) Restlessness and agitation: Status: Acute Assessment and plan: Ms. Coley is a 64 year-old, left-handed woman who was admitted with increasing restlessness, agitation, anxiety, tachycardia and shortness of breath, most likely due to Lyrica withdrawal. Unfortunately, she is unable to tolerate PO replacement of Lyrica. She is currently on clonidine patch with Ativan gtt, of which the dose has slowly been decreasing. Unclear if there is an element of pain adding to her restlessness. She has seen me in the past for significant RLS and diabetic neuropathy pain. Currently ferritin quite low. I would recommend IV iron replacement with goal ferritin >75 as treatment of RLS. This treatment has the benefit of not contributing to further cognitive fogging. I will continue to follow along. History of Present Illness History of Present Illness Chief Complaint: agitation Narrative: Handedness: LEFT. HPI: Ms. Coley is a 64-year-old woman with a past medical history of hypertension, hyperlipidemia, type 2 diabetes complicated by peripheral neuropathy and chronic kidney disease, remote history of moderate alcohol use, SIMMONS, previous TIA, restless leg syndrome, and a history of esophageal stricture. I have previously seen Ms. Coley as an outpatient in Sep 2019 at which time I transitioned her to monotherapy Lyrica (was on gabapentin as well) for her DM neuropathy pain and RLS. She followed-up in Oct 2019 with Camila Flores NP at which time she reported excellent symptom control and no ADRs on 150mg BID. Ms. Coley was admitted on 03/30/20 after presenting with increasing symptoms including tachycardia, increased anxiety, diaphoresis, shortness of breath, dry heaves, and pacing/agitation. She seemed to respond well to low dose benzodiazepines, but became increasingly agitated, eventually requiring IV ativan drip which she has been on since 03/31/20. Work-up has been extensive including stable CRI, ferritin 25, B12 456, TSH 1.74, Ammonia <10, neg UA, neg Blood cx, urine tox with +THC and +TCAs, negative COVID. She had a CTH which I reviewed personally. It was limited by motion artifact but appeared unremarkable, possibly subtle bifrontal atrophy/hygromas. She has had no fevers. Her home medications included nortriptyline 40mg HS (long-standing), new mirtazepine 7.5mg HS as of 03/26/20, cessation of Lyrica 150mg BID on 03/28/20 at the same time that Tramadol was increased from HS to BID. She has a remote history of ETOH abuse and her daughter was concerned she might have been drinking again, but we don't know the amount. Her clinical symptoms were felt to be due to Lyrica withdrawal. Her ativan drip has reduced from peak 12mg/hr to 4mg/hr currently. She remains more agitated at night requiring extra prn medications including further diazepam, morphine, and/or haloperidol. She was started on a clonidine patch on 04/01/20. It's unclear if pain is playing a role in her agitation. She has known RLS and her ferritin is quite low. She is unable to tolerate PT medications at present. Consults Requesting physician: Lisa Hernandez Review of Systems Unobtainable due to mental condition [facility] Medical History Daytime somnolence (Acute) Diabetic neuropathy (Chronic) a. Bilateral. Esophageal stricture (Chronic) GERD (gastroesophageal reflux disease) (Chronic) History of transient ischemic attack (Chronic) History of umbilical hernia (Acute) Hyperlipidemia (Acute) Hypertension (Chronic) Medical marijuana use (Chronic) Nonalcoholic steatohepatitis (Chronic) Restless leg syndrome (Chronic) Snoring (Acute) Surgical History Arthroplasty of knee Cholecystectomy Endometrial Ablation Oophrectomy, Left Repair of umbilical hernia with mesh Repair, Tendon or Muscle Achilles Family History Mother Diabetes Father Heart disease Substance abuse Brother Substance abuse Depression Heart disease Social History Smoking/Tobacco Use Status: Never Alcohol Intake: current Alcohol Intake frequency: holidays/special occasions only Drug use: Never Substance use type: marijuana Adopted: No Caregiver/Support person: No Foster care: No Household members: none Housing: house Do you need help understanding health information?: Rarely current occupation: [employer] Sexually active: No Do you think of yourself as: straight/heterosexual Current gender identity: female Do you feel safe at home: Yes Visit Medication and Allergies Active Medications Generic Name Dose Route Start Last Admin Trade Name Freq PRN Reason Stop Dose Admin Acetaminophen 0 mg 03/30/20 23:54 03/31/20 08:07 Tylenol PO 650 mg Q4H PRN PRN Administration Alprazolam 0.25 mg 03/31/20 08:30 03/31/20 08:07 Xanax PO 0.25 mg BID BASIL Administration Capsaicin 60 gm 03/31/20 07:30 Zostrix Hp 0.075% Cream TP TID PRN PRN foot pain Cholecalciferol 1,000 units 03/31/20 08:30 04/02/20 09:07 Vitamin D PO Not Given DAILY BASIL Cyanocobalamin 1,000 mcg 04/02/20 08:30 04/02/20 09:07 Vitamin B-12 PO Not Given DAILY BASIL Dextrose 0 gm 04/03/20 08:20 Insta-Glucose PO DIRECTED PRN Dextrose/Water 0 gm 04/03/20 08:20 IVP DIRECTED PRN Diazepam 10 mg 03/31/20 16:44 04/03/20 02:06 Valium Injection IVP 10 mg Q10MIN PRN Administration agitation Dimethicone/Zinc Oxide 0 gm 03/30/20 23:54 Laura Protect Cream TP PRN PRN Docusate Sodium 100 mg 03/30/20 23:54 Colace PO TID PRN PRN Heparin Sodium (Porcine) 5,000 units 04/02/20 08:30 04/03/20 08:08 SC 5,000 units Q12H BASIL Administration Lorazepam 50 mg/ Dextrose/ 50 mls @ 0 mls/hr 03/31/20 15:30 04/03/20 07:21 Water IV 4 mls/hr INFUSION BASIL Administration Protocol Per Protocol Thiamine HCl 500 mg/ Sodium 105 mls @ 200 mls/hr 03/31/20 18:00 04/03/20 01:27 Chloride IVPB 04/03/20 10:32 200 mls/hr Q8H BASIL Administration Ringer's Solution 1,000 mls @ 125 mls/hr 03/31/20 18:00 04/03/20 01:46 IV 125 mls/hr INFUSION BASIL Administration Magnesium Sulfate 2 gm in 50 mls @ 25 mls/hr 04/03/20 07:56 IVPB 04/03/20 09:55 NOW ONE Thiamine HCl 100 mg/ Sodium 101 mls @ 200 mls/hr 04/04/20 08:30 Chloride IVPB DAILY [facility] IV Miscellaneous Supplies 1 each 03/30/20 23:45 IV DIRECTED [facility] Insulin Aspart 0 units 04/03/20 08:00 Novolog Flexpen SC Q6H [facility] Protocol Ketorolac Tromethamine 15 mg 03/31/20 09:12 04/02/20 20:00 Toradol Injection IVP 04/05/20 09:11 15 mg Q6H PRN PRN Administration Lactulose 20 gm 03/31/20 11:15 Cephulac PO BID PRN PRN constipation Pantoprazole Sodium 40 mg 03/31/20 08:30 04/02/20 09:09 Protonix PO Not Given DAILY [facility] Polyethylene Glycol 17 gm 03/30/20 23:54 Miralax PO DAILY PRN PRN Constipation Promethazine HCl 25 mg 03/31/20 11:41 03/31/20 13:21 Phenergan PO 25 mg QID PRN PRN Administration Sodium Chloride 0 ml 03/30/20 23:48 04/02/20 20:13 Saline Flush 10 Ml Syringe IVP 50 ml PRN PRN Administration Vitamin B Complex/Vitamin C 1 tab 03/31/20 08:30 04/02/20 09:12 Allbee W/C PO Not Given DAILY [facility] Zolpidem Tartrate 5 mg 03/31/20 22:00 04/02/20 22:43 Ambien PO Not Given HS MAY REPEAT X1 BASIL [id number] Acetate 400 units 03/31/20 08:30 04/02/20 09:12 Vitamin E PO Not Given DAILY [facility] Allergies metoclopramide [From Reglan] Allergy (Verified 03/30/20 19:16) pollen extracts Allergy (Verified 03/30/20 19:16) propoxyphene HCl [From Darvon] Adverse Reaction (Verified 03/30/20 19:16) Nausea Exam Narrative Exam Narrative: Physical Exam: Constitutional: Patient of apparent stated age, well nourished, well developed, no acute distress, asleep Neck: Supple, no meningismus CV: RRR, S1, S2, no murmur Resp: CTAB Abd: Soft, nontender, nondistended Extrem: no edeam, clubbing, cyanosis Neuro: MS/Language/Speech: somnolent, arouses somewhat to voice; did not follow any commands and did not speak to me; Ativan 4mg/hr gtt CN: PERRL, doll's eye intact, blink intact, face symmetric Sensory/Motor: Bulk and tone intact. Withdrew to noxious stimuli in all extremities. Reflexes: hyporeflexic throughout, downgoing toes Coordination: no ataxia Gait: unsafe to test Results Last Vital Signs Temp 36.1 C L 04/03/20 07:35 Pulse 74 04/03/20 07:35 Resp 16 04/03/20 07:35 BP 153/70 H 04/03/20 07:35 Pulse Ox 98 04/03/20 07:35 Labs Result diagrams: 04/03/20 06:20 04/03/20 06:20 Labs: Laboratory Results - last 24 hr 04/02/20 04/03/20 04/03/20 06:45 06:20 06:20 WBC 6.56 RBC 3.42 L Hgb 9.3 L Hct 28.8 L MCV 84.2 MCH 27.2 MCHC 32.3 RDW 15.5 H Plt Count 178 MPV 11.4 H Immature Gran % 0.2 Neutrophils % 56.1 Lymphocytes % 34.6 Monocytes % 7.3 Eosinophils % 1.5 Basophils % 0.3 Absolute Neutrophils 3.68 Absolute Lymphocytes 2.27 Absolute Monocytes 0.48 Absolute Eosinophils 0.10 Absolute Basophils 0.02 Sodium 141 142 Potassium 3.8 3.6 Chloride 106 107 Carbon Dioxide 26.2 26.4 Anion Gap 8.8 8.6 BUN 17 13 Creatinine 1.58 H 1.47 H Estimated GFR/1.73 m2 32.72 35.56 Glucose 94 99 Calcium 8.7 8.7 Magnesium 1.7 L
--- NOTE | 2020-04-03 09:19 | W.PSYCHCONSU ---
Date of service: 04/03/20 Time of Service: 08:30 Assessment and Plan Assessment and plan (1) Altered mental status: Status: Acute Assessment and plan: Toyin Coley is a 64 year old female with past medical history of restless leg syndrome and diabetic neuropathy and recent worsening anxiety and daytime sleepiness who presented to [facility] ED three day ago, was admitted to rule out PE and has had increased somnolence and agitation since. The team obtained information that patient was informed to stop her Lyrica at once due to concerns for kidney injury and that her symptoms seem most consistent with Lyrica withdrawal. Recommendations: - continue to hold her tramadol, mirtazapine, nortriptyline, Lyrica until she is able to take PO safely. - mirtazapine is cleared by the kidneys so if restarting mirtazapine is necessary for sleep then continue with very low dose of 7.5mg - continue lorazepam IV as needed for management of agitation - once mental status is cleared up and if acute psychiatric concerns remain, I am happy to see Toyin Coley for a full psychiatric consultation. My recommendations are limited to information gathered from the team. Thank you very much for including me in Toyin Coley' care. Qualifiers: Altered mental status type: somnolence Qualified Code(s): R40.0 - Somnolence [facility] Medical History (Updated 04/01/20 @ 11:35 by Pam Chang MD) Daytime somnolence (Acute) Diabetic neuropathy (Chronic) a. Bilateral. Esophageal stricture (Chronic) GERD (gastroesophageal reflux disease) (Chronic) History of transient ischemic attack (Chronic) History of umbilical hernia (Acute) Hyperlipidemia (Acute) Hypertension (Chronic) Medical marijuana use (Chronic) Nonalcoholic steatohepatitis (Chronic) Restless leg syndrome (Chronic) Snoring (Acute) Surgical History Arthroplasty of knee Cholecystectomy Endometrial Ablation Oophrectomy, Left Repair of umbilical hernia with mesh Repair, Tendon or Muscle Achilles Family History Mother Diabetes Father Heart disease Substance abuse Brother Substance abuse Depression Heart disease Social History Smoking/Tobacco Use Status: Never Alcohol Intake: current Alcohol Intake frequency: holidays/special occasions only Drug use: Never Substance use type: marijuana Adopted: No Caregiver/Support person: No Foster care: No Household members: none Housing: house Do you need help understanding health information?: Rarely current occupation: [employer] Sexually active: No Do you think of yourself as: straight/heterosexual Current gender identity: female Do you feel safe at home: Yes Results Last Vital Signs Temp 36.1 C L 04/03/20 07:35 Pulse 74 04/03/20 07:35 Resp 16 04/03/20 07:35 BP 153/70 H 04/03/20 07:35 Pulse Ox 98 04/03/20 07:35 Labs Result diagrams: 04/03/20 06:20 04/03/20 06:20 Labs: Laboratory Results - last 24 hr 04/02/20 04/03/20 04/03/20 06:45 06:20 06:20 WBC 6.56 RBC 3.42 L Hgb 9.3 L Hct 28.8 L MCV 84.2 MCH 27.2 MCHC 32.3 RDW 15.5 H Plt Count 178 MPV 11.4 H Immature Gran % 0.2 Neutrophils % 56.1 Lymphocytes % 34.6 Monocytes % 7.3 Eosinophils % 1.5 Basophils % 0.3 Absolute Neutrophils 3.68 Absolute Lymphocytes 2.27 Absolute Monocytes 0.48 Absolute Eosinophils 0.10 Absolute Basophils 0.02 Sodium 141 142 Potassium 3.8 3.6 Chloride 106 107 Carbon Dioxide 26.2 26.4 Anion Gap 8.8 8.6 BUN 17 13 Creatinine 1.58 H 1.47 H Estimated GFR/1.73 m2 32.72 35.56 Glucose 94 99 Calcium 8.7 8.7 Magnesium 1.7 L
[2020-04-03] MEDS: MAGNESIUM SULFATE 2 GM/50 ML BAG IVPB (09:42)
--- NOTE | 2020-04-03 10:27 | NUR.NOTE ---
Suh is clamped in anticipation of renal ultrasound.Nursing Note:
--- NOTE | 2020-04-03 12:24 | PDOC.CMPRO ---
- If Service Date Differs Date of service: 04/03/20 Time of Service: 12:24 Care Management Progress Note S/O: Toyin remains ICU level of care on an Ativan drip. Per provider, she is doing better and the Ativan has been decreased to 3mg/hour. Toyin was able to get out of bed and stand with assistance this morning.When CM met with her, her daughter Linda was in the room. Toyin did not open her eyes and did not respond directly to questions or commands. She grimaced at times and was teary. Her daughter shared that Toyin has a lot of pain in her feet and takes Lyrica, Gabapentin and medical marijuana for it as well as Tramadol at night. A: Toyin is a 64 year old woman admitted on 03/30/20 with restlessness and agitation as well as GETACHEW superimposed on CKD. P:Toyin will likely return home when discharged. She may require home health services, depending on her hospital course. CM will continue to support patient and discharge planning needs.
--- NOTE | 2020-04-03 12:43 | NUR.NOTE ---
Several attempts are made by both INSULATION INSTALLER nurses and Folder Seamer Automatic to place new IV since left forearm IV infiltrated without success. orders midline placement.Nursing Note:
--- NOTE | 2020-04-03 13:29 | NUR.NOTE ---
Renal ultrasound was completed today at 11:15 a.m.Nursing Note:
--- NOTE | 2020-04-03 13:31 | NUR.NOTE ---
Midline is placed in left AC by RODERICK Pérez.Nursing Note:
[2020-04-03] MEDS: IRON SUCROSE COMPLEX 200 MG in Normal Saline 100 ML 400 MG IVPB (13:48)
[2020-04-03] MEDS: Ketorolac 15 MG/ML VIAL IVP ×2 (15:58→22:00)
[2020-04-03] MEDS: Normal Saline Flush 10 ML SYR IVP (15:58)
[2020-04-03] MEDS: Normal Saline Flush 10 ML SYR 20 ML IVP (20:00)
[2020-04-04] VITALS (46 sets, daily range): BP systolic 119–177; BP diastolic 55–119; PULSE 42–93; RESP 13–28; TEMP 35.8–36.7; O2SAT 88–100
[2020-04-04] MEDS: Lactated Ringers 1,000 ML 125 ML IV ×2 (02:32→13:04)
[2020-04-04] MEDS: diazePAM 10 MG/2 ML SYR IVP ×3 (04:07→13:16)
[2020-04-04 07:00] LABS: Abs Immature Grans 0.03 k/cumm (0.0-0.09); Absolute Basophil Count 0.02 k/cumm (0.0-0.2); Absolute Eosinophil Count 0.09 k/cumm (0.0-0.7); Absolute Monocyte Count 0.62 k/cumm (0.11-0.7); Anion Gap 9.1 mmol/L (3-11); BUN 9 mg/dL (7-18); Basophils % 0.2; CO2 28.9 mmol/L (21.0-32.0); CREATININE 1.39 mg/dL (0.55-1.02); Chloride 104 mmol/L (98-107); Estimated GFR 37.93 (mL/min/1.73m2); Glucose 110 mg/dL (74-106); HCT 28.3 % (36.0-46.0); HGB 9.2 g/dL (12.0-15.5); Immature Grans % 0.3 %; Lymphocytes % 23.1; Magnesium 1.4 mg/dL (1.8-2.4); Mean Corp. HGB Concentration 32.5 g/dL (32.0-36.0); Mean Corpuscular Hemoglobin 26.9 pg (27.0-33.0); Mean Corpuscular Volume 82.7 fL (80-95); Mean Platelet Volume 11.1 fL (8.0-11.0); Monocytes % 7.2; Neutrophils % 68.2; Platelet Count 171 x1000/uL (130-400); Potassium 3.3 mmol/L (3.5-5.1); RBC 3.42 m/cumm (4.00-5.20); RBC Distribution Width 15.3 % (11.7-14.6); Sodium 142 mmol/L (136-145); White Blood Cell Count 8.64 k/cumm (4.4-10.8)
[2020-04-04 07:10] LABS: Absolute Neutrophil Count 5.89 k/cumm (1.2-6.7)
--- NOTE | 2020-04-04 08:25 | W.PM.PROGNOT ---
Date of Service Date of service: 04/04/20 Time of Service: 12:00 Assessment and Plan Assessment and plan (1) Restlessness and agitation: Status: Acute Assessment and plan: Presumably, agitated delirium due to lyrica withdrawal. However, LP will rule out any encephalitis/meningitis concerns we might have. Will await studies. Transitioning to precedex from ativan gtt. Continue clonidine patch. Keep in ICU. Reintroduce lyrica when able. As family is reporting abdominal pain in days/weeks prior to presentation, obtain CT abdomen/pelvis. Her abdominal exam is completely benign, and she never reported abdominal pain since being in the ICU. Will provide bowel regimen. (2) Acute kidney injury superimposed on chronic kidney disease: Status: Acute Assessment and plan: Continue IVF at current rate. Improving. US kidneys of poor quality, but no obvious obstructive pathology. As she is getting an abdominal CT today, will assess kidneys on that as well. (3) Non-insulin dependent type 2 diabetes mellitus: Status: Acute Assessment and plan: Cover with SSI. On discharge, consider januvia. (4) Hypertension: Status: Chronic Assessment and plan: No change in tx at this time Qualifiers: Hypertension type: essential hypertension Qualified Code(s): I10 - Essential (primary) hypertension (5) Elevated d-dimer: Status: Acute Assessment and plan: DVT/PT ruled out. Off heparin gtt. No further workup. (6) Sinus tachycardia: Status: Resolved Assessment and plan: Due to lyrica withdrawal. Resolved on ativan gtt. (7) Iron deficiency: Status: Acute Assessment and plan: Replete with IV iron (8) Restless leg syndrome: Status: Chronic Assessment and plan: Given h/o iron deficiency, continue iron repletion (5 total doses of venofer). Avoid narcotics, if possible. (9) Constipation: Status: Acute Assessment and plan: provide bowel regimen (10) Abdominal pain: Status: Acute Assessment and plan: Check CT abdomen/pelvis. The patient's exam is benign and she firmly denied abdominal pain on Wednesday when she could still talk to us. (11) Hypokalemia: Status: Acute Assessment and plan: Replete and recheck in am (12) Hypomagnesemia: Status: Acute Assessment and plan: Replete and recheck in am (13) DVT prophylaxis: Status: Acute Assessment and plan: SC heparin (14) Discharge planning issues: Status: Acute Assessment and plan: Full code Keep in ICU. Total Critical Care Time 45 minutes. Subjective Subjective Interval history since last seen: Remains in ICU, not able to answer questions. Very disoriented overnight. pulled out midline - reinserted a bit earlier. legs caught up in rails overnight - restless. Screaming overnight. Few words. Not cooperative. Not coherent. No fevers. Ativan gtt at 7 mg/hr. Being transitioned to precedex. LP today. Discussed with daughters at length - they state that Ms Coley was reporting a lot of abdominal pain over the 1-2 weeks prior to presentation. The patient was also reporting constipation. Per nursing, no good BM in the last 24-48 hours - only smears. Exam Narrative Exam Narrative: General: Middle-aged female, restless, turning from side to side, not answering my questions, but opening eyes occasionally. HEENT: opens eyes occasionally and appears to track, MMM Heart: RRR, no m/r/g Lungs: CTAB Abdomen: soft, nontender, nondistended Extremities: no e/c/c BLE's Objective Objective Clinical Data: Abnormal lab results 04/04/20 04/04/20 Range/Units 06:05 06:05 RBC 3.42 L (4.00-5.20) m/cumm Hgb 9.2 L (12.0-15.5) g/dL Hct 28.3 L (36.0-46.0) % MCH 26.9 L (27.0-33.0) pg RDW 15.3 H (11.7-14.6) % MPV 11.1 H (8.0-11.0) fL Potassium 3.3 L (3.5-5.1) mmol/L Creatinine 1.39 H (0.55-1.02) mg/dL Glucose 110 H (74-106) mg/dL Magnesium 1.4 L (1.8-2.4) mg/dL Vital Signs Temperature 36.3 C L 04/04/20 06:00 Temperature Source Temporal Artery Scan 04/04/20 06:00 Pulse 72 04/04/20 06:00 Pulse 86 04/04/20 03:00 Respiratory Rate 14 04/04/20 06:00 Respiratory Effort Non-Labored 04/04/20 06:00 Respiratory Depth Normal 04/04/20 06:00 Respiratory Pattern Normal 04/04/20 06:00 Blood Pressure 177/60 H 04/04/20 06:00 Blood Pressure Mean 99 04/04/20 06:00 Blood Pressure Position Supine 04/04/20 06:00 Pulse Oximetry 96 04/04/20 06:00 Oxygen Delivery Method Room Air 04/03/20 17:48 Oxygen Flow Rate 0 04/03/20 17:48 Pain Level 0 04/04/20 06:00 Comment 04/03/20 07:27 Intake & Output 04/03/20 04/03/20 04/04/20 11:59 23:59 11:59 Intake Total 2236.367 / 3499.366 1262.999 / 3499.366 2056.417 / 2055.417 Output Total 2250 / 4050 1800 / 4050 2950 / 2950 Balance -13.633 / -550.634 -537.001 / -550.634 -893.583 / -893.583 Weight 77.3 kg Intake: IV 2236.367 / 3499.366 1262.999 / 3499.366 205.417 / 2055.417 Output: Urine 2250 / 4050 1800 / 4050 2950 / 2950 Other: Urine Color Yellow Yellow Yellow Urine Appearance Clear Clear Clear Urine Odor Normal Comment Patient has a mi catheter that is draining adequate amounts of clear yellow urine. Patient has a mi catheter that continues to drain an adequate amounts of clear yellow urine. Patient has a mi catheter that continues to drain an adequate amounts of clear yellow urine. Stool Size Small Stool Characteristics Soft Brown Voiding Methods Indwelling Catheter Laboratory Results WBC 8.64 k/cumm (4.4-10.8) D 04/04/20 06:05 RBC 3.42 m/cumm (4.00-5.20) L 04/04/20 06:05 Hgb 9.2 g/dL (12.0-15.5) L 04/04/20 06:05 Hct 28.3 % (36.0-46.0) L 04/04/20 06:05 MCV 82.7 fL (80-95) 04/04/20 06:05 MCH 26.9 pg (27.0-33.0) L 04/04/20 06:05 MCHC 32.5 g/dL (32.0-36.0) 04/04/20 06:05 RDW 15.3 % (11.7-14.6) H 04/04/20 06:05 Plt Count 171 x1000/uL (130-400) 04/04/20 06:05 MPV 11.1 fL (8.0-11.0) H 04/04/20 06:05 Immature Gran % 0.3 % 04/04/20 06:05 Neutrophils % 68.2 04/04/20 06:05 Lymphocytes % 23.1 04/04/20 06:05 Monocytes % 7.2 04/04/20 06:05 Eosinophils % 1.0 04/04/20 06:05 Basophils % 0.2 04/04/20 06:05 Absolute Neutrophils 5.89 k/cumm (1.2-6.7) 04/04/20 06:05 Absolute Lymphocytes 2.00 k/cumm (1.2-3.4) 04/04/20 06:05 Absolute Monocytes 0.62 k/cumm (0.11-0.7) 04/04/20 06:05 Absolute Eosinophils 0.09 k/cumm (0.0-0.7) 04/04/20 06:05 Absolute Basophils 0.02 k/cumm (0.0-0.2) 04/04/20 06:05 Differential Comment Diff reviewed 04/02/20 06:45 RBC Morphology Normal 04/02/20 06:45 PT 10.6 sec (9.3-11.0) 03/30/20 19:03 INR 1.1 (0.9-1.1) 03/30/20 19:03 APTT 52.8 sec (21.0-31.4) H D 04/01/20 16:40 D-Dimer 671 ng/mlFEU (<500) H 03/30/20 19:03 Sodium 142 mmol/L (136-145) 04/04/20 06:05 Potassium 3.3 mmol/L (3.5-5.1) L 04/04/20 06:05 Chloride 104 mmol/L (98-107) 04/04/20 06:05 Carbon Dioxide 28.9 mmol/L (21.0-32.0) 04/04/20 06:05 Anion Gap 9.1 mmol/L (3-11) 04/04/20 06:05 BUN 9 mg/dL (7-18) 04/04/20 06:05 Creatinine 1.39 mg/dL (0.55-1.02) H 04/04/20 06:05 Estimated GFR/1.73 m2 37.93 (mL/min/1.73m2) 04/04/20 06:05 Glucose 110 mg/dL (74-106) H 04/04/20 06:05 Calcium 9.0 mg/dL (8.5-10.1) 04/04/20 06:05 Magnesium 1.4 mg/dL (1.8-2.4) L 04/04/20 06:05 Ferritin 25 ng/mL (8-252) 04/02/20 06:45 Total Bilirubin 0.5 mg/dL (0.2-1.0) 03/30/20 19:03 AST 27 U/L (15-37) 03/30/20 19:03 ALT 30 U/L (14-59) 03/30/20 19:03 Alkaline Phosphatase 108 U/L (46-116) 03/30/20 19:03 Ammonia < 10 umol/L (11-32) L 04/01/20 06:23 Troponin I < 0.05 ng/mL (<0.06) 03/31/20 05:35 Total Protein 9.4 g/dL (6.4-8.2) H 03/30/20 19:03 Albumin 3.9 g/dL (3.4-5.0) 03/30/20 19:03 Lipase 151 U/L (73-393) 03/30/20 19:03 Vitamin B12 456 pg/mL (193-986) 04/01/20 06:23 Procalcitonin < 0.1 ng/mL 04/01/20 07:55 TSH 1.74 uIU/mL (0.36-3.74) 03/31/20 05:35 Urine Color Yellow (Yellow) 03/31/20 02:20 Urine Clarity Clear (Clear) 03/31/20 02:20 Urine pH 7.5 (5-8) 03/31/20 02:20 Ur Specific [place] 1.020 (1.005-1.025) 03/31/20 02:20 Urine Protein 30 mg/dL (Negative) H 03/31/20 02:20 Urine Ketones Negative mg/dL (Negative) 03/31/20 02:20 Urine Blood Moderate (Negative) H 03/31/20 02:20 Urine Nitrite Negative (Negative) 03/31/20 02:20 Urine Bilirubin Negative (Negative) 03/31/20 02:20 Urine Urobilinogen 0.2 EU/dL (Up TO 0.2) 03/31/20 02:20 Ur Leukocyte Esterase Trace (Negative) H 03/31/20 02:20 Urine RBC 3-5 HPF (0-2) H 03/31/20 02:20 Urine WBC 5-10 HPF (0-5) 03/31/20 02:20 Ur Epithelial Cells Few HPF (Negative) 03/31/20 02:20 Urine Crystals Negative HPF (Negative) 03/31/20 02:20 Urine Bacteria Few HPF (Negative) 03/31/20 02:20 Urine Casts Negative LPF (Negative) 03/31/20 02:20 Urine Mucus Negative (Negative) 03/31/20 02:20 Ur Culture Indicated? Yes 03/31/20 02:20 Urine Glucose Negative mg/dL (Negative) 03/31/20 02:20 Urine Opiates Screen Negative (Negative) 03/31/20 02:20 Urine Methadone Screen Negative (Negative) 03/31/20 02:20 Ur Barbiturates Screen Negative (Negative) 03/31/20 02:20 Ur Tricyclics Screen Positive (Negative) A 03/31/20 02:20 Ur Amphetamines Screen Negative (Negative) 03/31/20 02:20 U Benzodiazepines Scrn Negative (Negative) 03/31/20 02:20 Urine Cocaine Screen Negative (Negative) 03/31/20 02:20 Ur THC Screen Positive (Negative) A 03/31/20 02:20 COVID-19 PCR Negative (Negative) 03/30/20 23:30 Nasopharyn COVID-19 PCR Not Applicable 03/30/20 23:30 Ref Test Perform Site [facility] 03/30/20 23:30
[2020-04-04] MEDS: POTASSIUM CHLORIDE 20 MEQ/100 ML BAG 50 MEQ IVPB ×2 (09:33→12:43)
[2020-04-04] MEDS: MAGNESIUM SULFATE 4 GM/100 ML BAG IVPB (09:35)
--- NOTE | 2020-04-04 09:38 | PDOC.CMPRO ---
- If Service Date Differs Date of service: 04/04/20 Time of Service: 09:38 Care Management Progress Note S/O: Toyin remains in the ICU on an Ativan drip, however Pressidex has been added in the hopes of weaning her off the Ativan. The dose of Ativan needed to be increased today again as her agitation worsened. Toyin was seen by Dr. Carmona again today. If there is no improvement by tomorrow, other testing and modalities will be introduced. This afternoon Toyin had a lumbar puncture and samples were sent for a wide variety of tests. Toyin is responding verbally but is somnolent most of the time. Toyin's daughter Linda has been at the bedside for much of the day. Linda shared information about Toyin's medication history and also her alcohol intake. She has verified that Toyin has not been drinking alcohol for a long time. This was confirmed by close friends and other relatives. She also stated that there is some evidence that Toyin's compliance with the taking of her medications has been inconsistent and Linda is requesting that medication management be part of the discharge plan. A: Toyin is a 64 year old woman admitted on 03/30/20 with restlessness and agitation as well as GETACHEW superimposed on CKD. P:Toyin remains critically ill in the ICU. Her discharge disposition is unclear at this time. It is possible that she will require a higher level of care if she does not improve soon. CM will continue to support patient, family and discharge planning needs.
[2020-04-04] MEDS: Bisacodyl 10 MG SUPP PR (11:34)
[2020-04-04] MEDS: IRON SUCROSE COMPLEX 200 MG in Normal Saline 100 ML 400 MG IVPB ×2 (11:34→12:48)
--- NOTE | 2020-04-04 11:36 | W.NUTRFU ---
Date of service: 04/04/20 Time of Service: 11:36 Nutritional Follow up NOTE: Toyin continues to be unresponsive, NPO since 03/31/20 at dinner. Nursing reports spinal tap scheduled today. Etiology of AMS unclear. Despite ativan drip and 1:1 staff, has been pulling out IVs. Repleted with IV Magnesium, potassium and iron. On lactated ringer 125m./hr for fluid support. Prolonged lack of of protein/calorie/fat intake of concern. If unable to decrease sedation, will need to consider appropriate nutrition support to maintain lean body mass and immune function. Time Spent in Nutritional Counseling and Treatment: 5 min
[2020-04-04 11:45] LABS: ALT 27 U/L (14-59); AST 34 U/L (15-37); Albumin 3.3 g/dL (3.4-5.0); Alkaline Phosphatase 82 U/L (46-116); Bilirubin, Direct 0.13 mg/dL (0.00-0.20); Bilirubin, Total 0.5 mg/dL (0.2-1.0); Total Protein 7.3 g/dL (6.4-8.2)
[2020-04-04 12:26] LABS: Total Protein (CSF) 51 mg/dL (15-45)
[2020-04-04 12:39] LABS: Clarity Clear; RBC 0 /mm3 (0-5); Tube # 4; WBC 0 /mm3 (0-5); Xanthochromia Absent
[2020-04-04] MEDS: THIAMINE 100 MG in Normal Saline 100 ML 200 MG IVPB (13:14)
[2020-04-04 13:31] LABS: Glucose (CSF) 65 mg/dL (40-70)
[2020-04-04] MEDS: Insulin Aspart 300 UNITS/3 ML PEN SC (13:39)
--- NOTE | 2020-04-04 14:44 | NUR.NOTE ---
1330 hand protective mitts applied for pt safety.
--- NOTE | 2020-04-04 14:59 | PGE_ITS ---
Date of Service Date of service: 04/04/20 Time of Service: 14:59 Assessment and Plan Assessment and plan (1) Altered mental status: Status: Acute Qualifiers: Altered mental status type: somnolence Qualified Code(s): R40.0 - Somnolence (2) Restless leg syndrome: Status: Chronic (3) Diabetic neuropathy: Status: Chronic Qualifiers: Diabetes mellitus type: type 2 Diabetes mellitus complication detail: diabetic polyneuropathy Qualified Code(s): E11.42 - Type 2 diabetes mellitus with diabetic polyneuropathy (4) Restlessness and agitation: Status: Acute Assessment and plan: Ms. Coley is a 64 year-old, left-handed woman who was admitted with increasing restlessness, agitation, anxiety, tachycardia and shortness of breath, possibly due to Lyrica withdrawal. Unfortunately, she is unable to tolerate PO replacement of Lyrica. Agitation has increased in the last 24 hours. She is currently on clonidine patch, Precedex, and Ativan gtt. I don't think neuroleptics are contraindicated. Consider adding IM scheduled mood stabilizer of choice to see if that helps wean off drips. Extensive laboratory work-up negative for other etiologies of symptoms. LP performed today and cell count, protein, glucose unremarkable. Further studies pending. Tick panel pending. COVID negative. Will get EEG to look for seizures. Unable to cooperate for MRI at this time - would require intubation/full sedation - holding off at this time. Pulling lines when agitated and no PO access. Please call with any further questions or concerns. I will be available by telephone if needed (I am going on vacation). Subjective Subjective Interval history since last seen: Increased agitation overnight and most of the am. Pulled lines. I walked in right after she was calming down. Precedex added to IV ativan gtt (just reduced from 10mg/hr to 7mg/hr). Continues on clonidine patch. Apparently neuroleptics were discouraged in early admission by outside consultants (because of concern for serotonin syndrome vs NMD???). Given IV iron yesterday. Does not appear in pain while agitated per nursing. LP performed today as further work-up: 0 WBC, 0 RBC, 65 glucose, 51 protein. Unable to get MRI due to agitation. No PO access. Exam Narrative Exam Narrative: Minimal exam performed so as not to re-agitate patient as she had been for most of the morning. Resting quietly. RRR. Normal tone and bulk. Objective Objective Clinical Data: Abnormal lab results 04/04/20 04/04/20 04/04/20 Range/Units 06:05 06:05 11:40 RBC 3.42 L (4.00-5.20) m/cumm Hgb 9.2 L (12.0-15.5) g/dL Hct 28.3 L (36.0-46.0) % MCH 26.9 L (27.0-33.0) pg RDW 15.3 H (11.7-14.6) % MPV 11.1 H (8.0-11.0) fL Potassium 3.3 L (3.5-5.1) mmol/L Creatinine 1.39 H (0.55-1.02) mg/dL Glucose 110 H (74-106) mg/dL Magnesium 1.4 L (1.8-2.4) mg/dL Albumin 3.3 L (3.4-5.0) g/dL CSF Total Protein 51 H (15-45) mg/dL Vital Signs Temperature 36.3 C L 04/04/20 12:00 Temperature Source Temporal Artery Scan 04/04/20 12:00 Pulse 61 04/04/20 14:01 Pulse 62 04/04/20 14:01 Respiratory Rate 24 04/04/20 14:01 Respiratory Effort Non-Labored 04/04/20 12:00 Respiratory Depth Normal 04/04/20 12:00 Respiratory Pattern Normal 04/04/20 12:00 Blood Pressure 156/62 H 04/04/20 14:01 Blood Pressure Mean 86 04/04/20 14:01 Blood Pressure Position Supine 04/04/20 10:17 Pulse Oximetry 95 04/04/20 12:01 Oxygen Delivery Method Room Air 04/04/20 12:00 Oxygen Flow Rate 0 04/04/20 12:00 Pain Level 0 04/04/20 10:17 Comment 04/03/20 07:27 Intake & Output 04/03/20 04/04/20 04/04/20 23:59 11:59 23:59 Intake Total 1262.999 / 3499.366 3089.166 / 3573.642 484.476 / 3573.642 Output Total 1800 / 4050 2950 / 3950 1000 / 3950 Balance -537.001 / -550.634 139.166 / -376.358 -515.524 / -376.358 Weight 77.3 kg Intake: IV 1262.999 / 3499.366 3089.166 / 3573.642 484.476 / 3573.642 Output: Urine 1800 / 4050 2950 / 3950 1000 / 3950 Other: Urine Color Yellow Yellow Pale Yellow Urine Appearance Clear Clear Clear Comment Patient has a mi catheter that continues to drain an adequate amounts of clear yellow urine. Patient has a mi catheter that continues to drain an adequate amounts of clear yellow urine. mi catheter in place Stool Occult Blood Negative Stool Size Small Moderate Stool Characteristics Soft Formed Brown Liquid Brown Laboratory Results WBC 8.64 k/cumm (4.4-10.8) D 04/04/20 06:05 RBC 3.42 m/cumm (4.00-5.20) L 04/04/20 06:05 Hgb 9.2 g/dL (12.0-15.5) L 04/04/20 06:05 Hct 28.3 % (36.0-46.0) L 04/04/20 06:05 MCV 82.7 fL (80-95) 04/04/20 06:05 MCH 26.9 pg (27.0-33.0) L 04/04/20 06:05 MCHC 32.5 g/dL (32.0-36.0) 04/04/20 06:05 RDW 15.3 % (11.7-14.6) H 04/04/20 06:05 Plt Count 171 x1000/uL (130-400) 04/04/20 06:05 MPV 11.1 fL (8.0-11.0) H 04/04/20 06:05 Immature Gran % 0.3 % 04/04/20 06:05 Neutrophils % 68.2 04/04/20 06:05 Lymphocytes % 23.1 04/04/20 06:05 Monocytes % 7.2 04/04/20 06:05 Eosinophils % 1.0 04/04/20 06:05 Basophils % 0.2 04/04/20 06:05 Absolute Neutrophils 5.89 k/cumm (1.2-6.7) 04/04/20 06:05 Absolute Lymphocytes 2.00 k/cumm (1.2-3.4) 04/04/20 06:05 Absolute Monocytes 0.62 k/cumm (0.11-0.7) 04/04/20 06:05 Absolute Eosinophils 0.09 k/cumm (0.0-0.7) 04/04/20 06:05 Absolute Basophils 0.02 k/cumm (0.0-0.2) 04/04/20 06:05 Differential Comment Diff reviewed 04/02/20 06:45 RBC Morphology Normal 04/02/20 06:45 Xanthochromia Absent 04/04/20 11:40 PT 10.6 sec (9.3-11.0) 03/30/20 19:03 INR 1.1 (0.9-1.1) 03/30/20 19:03 APTT 52.8 sec (21.0-31.4) H D 04/01/20 16:40 D-Dimer 671 ng/mlFEU (<500) H 03/30/20 19:03 Sodium 142 mmol/L (136-145) 04/04/20 06:05 Potassium 3.3 mmol/L (3.5-5.1) L 04/04/20 06:05 Chloride 104 mmol/L (98-107) 04/04/20 06:05 Carbon Dioxide 28.9 mmol/L (21.0-32.0) 04/04/20 06:05 Anion Gap 9.1 mmol/L (3-11) 04/04/20 06:05 BUN 9 mg/dL (7-18) 04/04/20 06:05 Creatinine 1.39 mg/dL (0.55-1.02) H 04/04/20 06:05 Estimated GFR/1.73 m2 37.93 (mL/min/1.73m2) 04/04/20 06:05 Glucose 110 mg/dL (74-106) H 04/04/20 06:05 Calcium 9.0 mg/dL (8.5-10.1) 04/04/20 06:05 Magnesium 1.4 mg/dL (1.8-2.4) L 04/04/20 06:05 Ferritin 25 ng/mL (8-252) 04/02/20 06:45 Total Bilirubin 0.5 mg/dL (0.2-1.0) 04/04/20 06:05 Conjugated Bilirubin 0.13 mg/dL (0.00-0.20) 04/04/20 06:05 AST 34 U/L (15-37) 04/04/20 06:05 ALT 27 U/L (14-59) 04/04/20 06:05 Alkaline Phosphatase 82 U/L (46-116) 04/04/20 06:05 Ammonia < 10 umol/L (11-32) L 04/01/20 06:23 Troponin I < 0.05 ng/mL (<0.06) 03/31/20 05:35 Total Protein 7.3 g/dL (6.4-8.2) 04/04/20 06:05 Albumin 3.3 g/dL (3.4-5.0) L 04/04/20 06:05 Lipase 151 U/L (73-393) 03/30/20 19:03 Vitamin B12 456 pg/mL (193-986) 04/01/20 06:23 Procalcitonin < 0.1 ng/mL 04/01/20 07:55 TSH 1.74 uIU/mL (0.36-3.74) 03/31/20 05:35 Urine Color Yellow (Yellow) 03/31/20 02:20 Urine Clarity Clear (Clear) 03/31/20 02:20 Urine pH 7.5 (5-8) 03/31/20 02:20 Ur Specific [place] 1.020 (1.005-1.025) 03/31/20 02:20 Urine Protein 30 mg/dL (Negative) H 03/31/20 02:20 Urine Ketones Negative mg/dL (Negative) 03/31/20 02:20 Urine Blood Moderate (Negative) H 03/31/20 02:20 Urine Nitrite Negative (Negative) 03/31/20 02:20 Urine Bilirubin Negative (Negative) 03/31/20 02:20 Urine Urobilinogen 0.2 EU/dL (Up TO 0.2) 03/31/20 02:20 Ur Leukocyte Esterase Trace (Negative) H 03/31/20 02:20 Urine RBC 3-5 HPF (0-2) H 03/31/20 02:20 Urine WBC 5-10 HPF (0-5) 03/31/20 02:20 Ur Epithelial Cells Few HPF (Negative) 03/31/20 02:20 Urine Crystals Negative HPF (Negative) 03/31/20 02:20 Urine Bacteria Few HPF (Negative) 03/31/20 02:20 Urine Casts Negative LPF (Negative) 03/31/20 02:20 Urine Mucus Negative (Negative) 03/31/20 02:20 Ur Culture Indicated? Yes 03/31/20 02:20 Urine Glucose Negative mg/dL (Negative) 03/31/20 02:20 CSF Tube Number 4 04/04/20 11:40 CSF Color Colorless 04/04/20 11:40 CSF Clarity Clear 04/04/20 11:40 CSF WBC 0 /mm3 (0-5) 04/04/20 11:40 CSF RBC 0 /mm3 (0-5) 04/04/20 11:40 CSF Diff Comment Not Applicable 04/04/20 11:40 CSF Glucose 65 mg/dL (40-70) 04/04/20 11:40 CSF Total Protein 51 mg/dL (15-45) H 04/04/20 11:40 Urine Opiates Screen Negative (Negative) 03/31/20 02:20 Urine Methadone Screen Negative (Negative) 03/31/20 02:20 Ur Barbiturates Screen Negative (Negative) 03/31/20 02:20 Ur Tricyclics Screen Positive (Negative) A 03/31/20 02:20 Ur Amphetamines Screen Negative (Negative) 03/31/20 02:20 U Benzodiazepines Scrn Negative (Negative) 03/31/20 02:20 Urine Cocaine Screen Negative (Negative) 03/31/20 02:20 Ur THC Screen Positive (Negative) A 03/31/20 02:20 COVID-19 PCR Negative (Negative) 03/30/20 23:30 Nasopharyn COVID-19 PCR Not Applicable 03/30/20 23:30 EBV DNA, Quant Cancelled 04/04/20 Unknown Herpes Simplex Source Cancelled 04/04/20 Unknown HSV I DNA PCR Cancelled 04/04/20 Unknown HSV II DNA PCR Cancelled 04/04/20 Unknown AFB Source Cancelled 04/04/20 11:40 AFB Culture Final Res Cancelled 04/04/20 11:40 M. Tuberculosis PCR Cancelled 04/04/20 11:40 AFB Smear (Ref Lab) Cancelled 04/04/20 11:40 Ref Test Perform Site [facility] 03/30/20 23:30
[2020-04-04] MEDS: Normal Saline Flush 10 ML SYR 20 ML IVP (20:00)
[2020-04-04 22:15] LABS: Osmolality Serum 298 mOsm/kg (275-295)
[2020-04-05] VITALS (40 sets, daily range): BP systolic 142–176; BP diastolic 55–87; PULSE 40–72; RESP 14–28; TEMP 36–36.8; O2SAT 90–99
[2020-04-05] MEDS: Lactated Ringers 1,000 ML 125 ML IV (01:45)
[2020-04-05 06:28] LABS: Abs Immature Grans 0.03 k/cumm (0.0-0.09); Absolute Basophil Count 0.02 k/cumm (0.0-0.2); Absolute Eosinophil Count 0.21 k/cumm (0.0-0.7); Absolute Lymphocyte Count 2.29 k/cumm (1.2-3.4); Absolute Monocyte Count 0.61 k/cumm (0.11-0.7); Absolute Neutrophil Count 7.58 k/cumm (1.2-6.7); Basophils % 0.2; HCT 30.8 % (36.0-46.0); HGB 10.1 g/dL (12.0-15.5); Immature Grans % 0.3 %; Lymphocytes % 21.3; Mean Corp. HGB Concentration 32.8 g/dL (32.0-36.0); Mean Corpuscular Hemoglobin 27.2 pg (27.0-33.0); Mean Platelet Volume 11.1 fL (8.0-11.0); Monocytes % 5.7; Neutrophils % 70.5; Platelet Count 195 x1000/uL (130-400); RBC 3.71 m/cumm (4.00-5.20); RBC Distribution Width 15.9 % (11.7-14.6); White Blood Cell Count 10.74 k/cumm (4.4-10.8)
[2020-04-05 06:34] LABS: Anion Gap 9.9 mmol/L (3-11); BUN 13 mg/dL (7-18); CO2 26.1 mmol/L (21.0-32.0); CREATININE 1.54 mg/dL (0.55-1.02); Calcium 8.9 mg/dL (8.5-10.1); Chloride 104 mmol/L (98-107); Glucose 143 mg/dL (74-106); Magnesium 2.1 mg/dL (1.8-2.4); Potassium 4.2 mmol/L (3.5-5.1); Sodium 140 mmol/L (136-145)
[2020-04-05 07:36] LABS: HSV 1 DNA Result Negative (Negative); HSV 2 DNA Result Negative (Negative)
--- NOTE | 2020-04-05 08:36 | PDOC.CMPRO ---
- If Service Date Differs Date of service: 04/05/20 Time of Service: 08:36 Care Management Progress Note S/O: A: Toyin is a 64 year old woman admitted on 03/30/20 with restlessness and agitation as well as GETACHEW superimposed on CKD. P:Toyin remains critically ill in the ICU. Her discharge disposition is unclear at this time. It is possible that she will require a higher level of care if she does not improve soon. CM will continue to support patient, family and discharge planning needs.
[2020-04-05] MEDS: THIAMINE 100 MG in Normal Saline 100 ML 200 MG IVPB (09:13)
[2020-04-05] MEDS: Normal Saline Flush 10 ML SYR IVP (09:20)
[2020-04-05] MEDS: Insulin Aspart 300 UNITS/3 ML PEN SC ×2 (09:22→13:18)
[2020-04-05 10:32] LABS: Lyme Ab w Rflx to Lyme Confirm Negative (Negative)
--- NOTE | 2020-04-05 11:02 | W.NUTRFU ---
Date of service: 04/05/20 Time of Service: 11:02 Nutritional Follow up NOTE: TPN recommendations as follows: Clinimix (4.25/10) 2000 ml Amino Acids 4.25%/Dextrose 10% run 83 cc/hour. 20% lipids 250 ml/day, standard electrolytes, MVI and trace elements. Provides 1520 kcal, 84 g protein, 55 g fat. Estimated Needs: 1774-6220 kcal, 58-87 g protein, 50-60 g fat. Current TPN should be well tolerated and provides 1.1g pro/kg. With advanced kidney disease, may need as low as 0.8 g pro/kg. If BUN and Cre elevate, will adjust TPN with lower protein content. daily CBC, Mg, Phos, monitor blood glucose twice daily and adjust insulin as needed. Time Spent in Nutritional Counseling and Treatment: 0 time spent face to face
[2020-04-05 11:22] LABS: Bilirubin Negative (Negative); Blood Moderate (Negative); Clarity Sl Cloudy (Clear); Glucose Negative (Negative); Ketones Negative (Negative); Leukocyte Esterase Small (Negative); Nitrite Negative (Negative); Urobilinogen 0.2 EU/dL (Up TO 0.2)
--- NOTE | 2020-04-05 11:27 | W.PM.DS.N ---
Date of service: 04/05/20 Time of Service: 12:22 DS: Diagnosis Discharge Diagnosis (1) Acute hyperactive delirium due to another medical condition: Status: Acute (2) Withdrawal syndrome: Status: Acute Asessment and Plan: lyrica (3) Restless leg syndrome: Status: Chronic (4) Iron deficiency: Status: Acute (5) Acute kidney injury superimposed on chronic kidney disease: Status: Resolved (6) Diabetic neuropathy: Status: Chronic (7) Constipation: Status: Resolved (8) Hypomagnesemia: Status: Resolved (9) Hypokalemia: Status: Resolved (10) Non-insulin dependent type 2 diabetes mellitus: Status: Chronic (11) COVID-19 ruled out: Status: Acute Discharge Plan Disposition Patient Disposition: [facility] Condition: Serious Discharge Details Chief Complaint: GenMedical Reason For Visit: SHORTNESS OF BREATH Admit Date/Time: 03/30/20 23:48 Admit Provider: Zeke Marie Attending Provider: Zeke Marie Primary Care Provider: Cass Abebe ED Provider: [facility] Course Hospital Course: Ms Coley is a 64 year old female with PMHx of NIDDM2 with neuropathy, CKD II-III, hypertension, as well as restless leg and anxiety, who was admitted to [facility] on 03/30/2020 under the hospitalist service for agitation and restlessness as well as insomnia and vomiting. The patient had abruptly stopped taking lyrica 4 days prior and started taking newly prescribed mirtazapine 7.5 mg QHS (in addition to nortriptyline and tramadol). She was persistently tachycardic in the ER, and her ddimer was borderline elevated, leading us to rule out DVT/PE with venous dopplers and VQ scan. She did not have a fever or clonus, and while there was a concern for early serotonin syndrome, the clinical picture was more consistent with lyrica withdrawal. For this, she was treated with benzodiazepines - lorazepam and diazepam, and while she was able to take PO medications, we did give her a dose of lyrica, but it did not alter her course. Her agitation would transiently improve with the doses of lorazepam and diazepam, but ultimately the patient required being placed on a lorazepam drip to control here severe agitation. There is no recent history of heavy alcohol use (the patient stopped drinking 10 years ago and, per family and friends, did not drink recently). CT of the head without contrast was negative. There have been no focal deficits to indicate a CVA. The patient was evaluated by psychiatry and neurology. Addition of clonidine patch as well as treatment of restless leg with IV iron was suggested and done. The patient's agitation did improve by 04/03/2020, but then got worse on 04/04/2020. The patient had precedex added to her regimen, and an LP was done - negative. UA on admission for negative for a UTI. It was repeated today - showing small leucocyte esterase and no nitrites. We are choosing to treat this as a UTI with IV ceftriaxone, but it is unlikely to be causing the patient's delirium on initial presentation. EEG was recommended by neurology, but could not be performed at [facility] until next week. The patient has not required more respiratory support than occasional supplemental oxygen and shows no signs of respiratory depression. Because the patient's delirium is not improving and we have not been able to wean the lorazepam/precedex drips here, it is felt that a transfer to a tertiary care facility with critical care and in house neurology, as well as availability of EEG and possible MRI is indicated. The patient was accepted by Dr Yann Hendrix of [facility] critical care and is stable for transfer at this time. Her daughter is in agreement with transfer. Patient is full code. Total Critical Care for patient as well as time spent on arrangement of transfer took 1 hour. For list of current medications, please see MAR. Home Meds and New Rx's Prescriptions: No Action cholecalciferol (vitamin D3) 1,000 unit capsule 1,000 unit PO DAILY RF: 0 nortriptyline 10 mg capsule 40 mg PO HS Qty: 360 RF: 3 lactulose 10 gram/15 mL solution 20 gm PO BID PRN (Reason: constipation) Qty: 500 RF: 2 mirtazapine 7.5 mg tablet 7.5 mg PO QHS Qty: 30 RF: 2 (DME) blood sugar diagnostic [FreeStyle Lite Strips] Strip See Rx Instructions .ROUTE .MEDSUPPLY Qty: 200 RF: 5 (DME) lancets [BD Ultra Fine Lancets] 33 gauge misc See Rx Instructions .ROUTE .MEDSUPPLY Qty: 200 RF: 5 pantoprazole 40 MG tablet,delayed release (DR/EC) 40 mg PO DAILY RF: 0 hydrochlorothiazide 25 MG tablet 25 mg PO DAILY RF: 0 vitamin E 400 UNIT capsule 400 unit PO DAILY RF: 0 VITAMIN B COMPLEX 1 EACH tablet 1 tab-cap PO DAILY RF: 0 tramadol 50 mg tablet 50 mg PO BID PRN (Reason: pain) Qty: 60 RF: 0 ibuprofen [Advil Liqui-Gel] 200 MG capsule 600 mg PO Q8H PRNQty: 0 RF: 0 Discharge Instructions Activity:: bedrest, turn Q2 Diet:: NPO, consider starting TPN Discharge Orders Discharge Orders: Discharge Order (Routine); Ordered 04/05/20 Ordered By: Lisa Hernandez DS: Summary Status at Discharge Functional status at discharge: bed bound Overall status at discharge: patient is not back to baseline Mental Status: other (sedated, agitated and restless when awake) Speech and Movement: other (not verbalizing) Mood: other (sedated, agitated and restless when awake) Affect: other (restless/anxious when awake) Exam Narrative Exam Narrative: General: Middle-aged female, resting in bed, responsive to touch, but not answering questions/following commands HEENT: opens eyes slightly, PERRLA, MMM Heart: RRR, no m/r/g Lungs: CTAB Abdomen: soft, nontender, nondistended Extremities: no e/c/c BLE's Psych Mental Status: other (sedated, agitated and restless when awake) Speech and Movement: other (not verbalizing) Mood: other (sedated, agitated and restless when awake) Affect: other (restless/anxious when awake) DS: Data Vitals/I&O Vitals and I&O: Vital Signs Temperature 36.0 C L 04/05/20 07:49 Temperature Source Temporal Artery Scan 04/05/20 07:49 Pulse 57 L 04/05/20 09:01 Pulse 63 04/05/20 09:01 Respiratory Rate 23 04/05/20 09:01 Respiratory Effort Non-Labored 04/05/20 07:49 Respiratory Depth Normal 04/05/20 07:49 Respiratory Pattern Normal 04/05/20 07:49 Blood Pressure 174/57 H 04/05/20 09:01 Blood Pressure Mean 85 04/05/20 09:01 Blood Pressure Position Supine 04/05/20 07:49 Pulse Oximetry 95 04/05/20 09:01 Oxygen Delivery Method Room Air 04/05/20 08:12 Oxygen Flow Rate 0 04/05/20 08:12 Pain Level 0 04/05/20 04:00 Comment 04/03/20 07:27 Intake & Output 04/04/20 04/04/20 04/05/20 11:59 23:59 11:59 Intake Total 3089.166 / 4077.249 982.583 / 4077.249 1116.967 / 1116.967 Output Total 2950 / 3950 1000 / 3950 550 / 550 Balance 139.166 / 127.249 -17.417 / 127.249 566.967 / 566.967 Weight 77.3 kg 73 kg Intake: IV 3089.166 / 4077.249 982.583 / 4077.249 1116.967 / 1116.967 Output: Urine 2950 / 3950 1000 / 3950 550 / 550 Other: Urine Color Yellow Pale Yellow Yellow Urine Appearance Clear Clear Cloudy Sediment Comment Patient has a mi catheter that continues to drain an adequate amounts of clear yellow urine. mi catheter in place mi catheter in place Stool Occult Blood Negative Negative Stool Size Moderate Moderate Stool Characteristics Liquid Liquid Data Completed and Pending Completed studies during hospitalization [Text1]: CXR 03/30/2020: No acute pulmonary findings. CT head w/o contrast 04/01/2020: No acute intracranial process Venous Doppler BLE's 04/01/2020: Right: Negative for DVT Left: Negative for DVT VQ scan 04/01/2020: Low probability VQ examination. CXR 04/02/2020: No evidence of acute process. No gross interval change from examination of March 30. US renal 04/03/2020: Somewhat limited scan due to patient's inability to cooperate. No evidence urinary tract obstruction. Labs on day of discharge: Labs from last 24 hours 04/05/20 04/05/20 04/05/20 10:08 06:05 06:05 WBC 10.74 RBC 3.71 L Hgb 10.1 L Hct 30.8 L MCV 83.0 MCH 27.2 MCHC 32.8 RDW 15.9 H Plt Count 195 MPV 11.1 H Immature Gran % 0.3 Neutrophils % 70.5 Lymphocytes % 21.3 Monocytes % 5.7 Eosinophils % 2.0 Basophils % 0.2 Absolute Neutrophils 7.58 H Absolute Lymphocytes 2.29 Absolute Monocytes 0.61 Absolute Eosinophils 0.21 Absolute Basophils 0.02 Xanthochromia Sodium 140 Potassium 4.2 D Chloride 104 Carbon Dioxide 26.1 Anion Gap 9.9 BUN 13 Creatinine 1.54 H Estimated GFR/1.73 m2 33.70 Glucose 143 H Serum Osmolality Calcium 8.9 Magnesium 2.1 Total Bilirubin Conjugated Bilirubin AST ALT Alkaline Phosphatase Total Protein Albumin Urine Color Yellow Urine Clarity Sl cloudy Urine pH 7.0 Ur Specific [place] 1.020 Urine Protein 30 H Urine Ketones Negative Urine Blood Moderate H Urine Nitrite Negative Urine Bilirubin Negative Urine Urobilinogen 0.2 Ur Leukocyte Esterase Small H Urine RBC Pending Urine WBC Pending Ur Epithelial Cells Pending Urine Crystals Pending Urine Bacteria Pending Urine Mucus Pending Ur Culture Indicated? Pending Urine Glucose Negative CSF Tube Number CSF Color CSF Clarity CSF WBC CSF RBC CSF Diff Comment CSF Glucose CSF Total Protein CSF VDRL CSF CMV Specimen Source CSF [place] RNA Adenovirus Source Adenovirus (PCR) Lyme Disease Antibody CMV DNA Qual PCR [place] Virus Source EBV DNA, Quant Herpes Simplex Source HSV Source Description HSV I DNA PCR HSV II DNA PCR AFB Source AFB Culture Final Res M. Tuberculosis PCR AFB Smear (Ref Lab) 04/04/20 04/04/20 04/04/20 Unknown Unknown 11:40 WBC RBC Hgb Hct MCV MCH MCHC RDW Plt Count MPV Immature Gran % Neutrophils % Lymphocytes % Monocytes % Eosinophils % Basophils % Absolute Neutrophils Absolute Lymphocytes Absolute Monocytes Absolute Eosinophils Absolute Basophils Xanthochromia Sodium Potassium Chloride Carbon Dioxide Anion Gap BUN Creatinine Estimated GFR/1.73 m2 Glucose Serum Osmolality Calcium Magnesium Total Bilirubin Conjugated Bilirubin AST ALT Alkaline Phosphatase Total Protein Albumin Urine Color Urine Clarity Urine pH Ur Specific [place] Urine Protein Urine Ketones Urine Blood Urine Nitrite Urine Bilirubin Urine Urobilinogen Ur Leukocyte Esterase Urine RBC Urine WBC Ur Epithelial Cells Urine Crystals Urine Bacteria Urine Mucus Ur Culture Indicated? Urine Glucose CSF Tube Number CSF Color CSF Clarity CSF WBC CSF RBC CSF Diff Comment CSF Glucose CSF Total Protein CSF VDRL CSF CMV Specimen Source CSF [place] RNA Adenovirus Source Adenovirus (PCR) Lyme Disease Antibody CMV DNA Qual PCR [place] Virus Source EBV DNA, Quant Cancelled Herpes Simplex Source Cancelled HSV Source Description Not Applicable HSV I DNA PCR Cancelled Negative HSV II DNA PCR Cancelled Negative AFB Source AFB Culture Final Res M. Tuberculosis PCR AFB Smear (Ref Lab) 04/04/20 04/04/20 04/04/20 11:40 11:40 11:40 WBC RBC Hgb Hct MCV MCH MCHC RDW Plt Count MPV Immature Gran % Neutrophils % Lymphocytes % Monocytes % Eosinophils % Basophils % Absolute Neutrophils Absolute Lymphocytes Absolute Monocytes Absolute Eosinophils Absolute Basophils Xanthochromia Absent Sodium Potassium Chloride Carbon Dioxide Anion Gap BUN Creatinine Estimated GFR/1.73 m2 Glucose Serum Osmolality Calcium Magnesium Total Bilirubin Conjugated Bilirubin AST ALT Alkaline Phosphatase Total Protein Albumin Urine Color Urine Clarity Urine pH Ur Specific [place] Urine Protein Urine Ketones Urine Blood Urine Nitrite Urine Bilirubin Urine Urobilinogen Ur Leukocyte Esterase Urine RBC Urine WBC Ur Epithelial Cells Urine Crystals Urine Bacteria Urine Mucus Ur Culture Indicated? Urine Glucose CSF Tube Number 4 CSF Color Colorless CSF Clarity Clear CSF WBC 0 CSF RBC 0 CSF Diff Comment Not Applicable CSF Glucose CSF Total Protein 51 H CSF VDRL CSF CMV Specimen Source CSF [place] RNA Adenovirus Source Pending Adenovirus (PCR) Pending Lyme Disease Antibody CMV DNA Qual PCR [place] Virus Source EBV DNA, Quant Herpes Simplex Source HSV Source Description HSV I DNA PCR HSV II DNA PCR AFB Source Cancelled AFB Culture Final Res Cancelled M. Tuberculosis PCR Cancelled AFB Smear (Ref Lab) Cancelled 04/04/20 04/04/20 04/04/20 11:40 11:40 06:05 WBC RBC Hgb Hct MCV MCH MCHC RDW Plt Count MPV Immature Gran % Neutrophils % Lymphocytes % Monocytes % Eosinophils % Basophils % Absolute Neutrophils Absolute Lymphocytes Absolute Monocytes Absolute Eosinophils Absolute Basophils Xanthochromia Sodium 142 Potassium 3.3 L Chloride 104 Carbon Dioxide 28.9 Anion Gap 9.1 BUN 9 Creatinine 1.39 H Estimated GFR/1.73 m2 37.93 Glucose 110 H Serum Osmolality Calcium 9.0 Magnesium 1.4 L Total Bilirubin 0.5 Conjugated Bilirubin 0.13 AST 34 ALT 27 Alkaline Phosphatase 82 Total Protein 7.3 Albumin 3.3 L Urine Color Urine Clarity Urine pH Ur Specific [place] Urine Protein Urine Ketones Urine Blood Urine Nitrite Urine Bilirubin Urine Urobilinogen Ur Leukocyte Esterase Urine RBC Urine WBC Ur Epithelial Cells Urine Crystals Urine Bacteria Urine Mucus Ur Culture Indicated? Urine Glucose CSF Tube Number CSF Color CSF Clarity CSF WBC CSF RBC CSF Diff Comment CSF Glucose 65 CSF Total Protein CSF VDRL Pending CSF CMV Specimen Source Pending CSF [place] RNA Pending Adenovirus Source Adenovirus (PCR) Lyme Disease Antibody CMV DNA Qual PCR Pending [place] Virus Source Pending EBV DNA, Quant Herpes Simplex Source HSV Source Description HSV I DNA PCR HSV II DNA PCR AFB Source AFB Culture Final Res M. Tuberculosis PCR AFB Smear (Ref Lab) 04/04/20 04/04/20 06:00 06:00 WBC RBC Hgb Hct MCV MCH MCHC RDW Plt Count MPV Immature Gran % Neutrophils % Lymphocytes % Monocytes % Eosinophils % Basophils % Absolute Neutrophils Absolute Lymphocytes Absolute Monocytes Absolute Eosinophils Absolute Basophils Xanthochromia Sodium Potassium Chloride Carbon Dioxide Anion Gap BUN Creatinine Estimated GFR/1.73 m2 Glucose Serum Osmolality 298 H Calcium Magnesium Total Bilirubin Conjugated Bilirubin AST ALT Alkaline Phosphatase Total Protein Albumin Urine Color Urine Clarity Urine pH Ur Specific [place] Urine Protein Urine Ketones Urine Blood Urine Nitrite Urine Bilirubin Urine Urobilinogen Ur Leukocyte Esterase Urine RBC Urine WBC Ur Epithelial Cells Urine Crystals Urine Bacteria Urine Mucus Ur Culture Indicated? Urine Glucose CSF Tube Number CSF Color CSF Clarity CSF WBC CSF RBC CSF Diff Comment CSF Glucose CSF Total Protein CSF VDRL CSF CMV Specimen Source CSF [place] RNA Adenovirus Source Adenovirus (PCR) Lyme Disease Antibody Negative CMV DNA Qual PCR [place] Virus Source EBV DNA, Quant Herpes Simplex Source HSV Source Description HSV I DNA PCR HSV II DNA PCR AFB Source AFB Culture Final Res M. Tuberculosis PCR AFB Smear (Ref Lab) Preliminary micro results at discharge 04/01/20 07:55 Blood Culture - Preliminary Blood NO GROWTH 96 HOURS 04/01/20 07:55 Blood Culture - Preliminary Blood NO GROWTH 96 HOURS 04/04/20 11:40 Body Fluid Culture - Preliminary Cerebrospinal Fluid [facility] Medical History Daytime somnolence (Acute) Diabetic neuropathy (Chronic) a. Bilateral. Esophageal stricture (Chronic) GERD (gastroesophageal reflux disease) (Chronic) History of transient ischemic attack (Chronic) History of umbilical hernia (Acute) Hyperlipidemia (Acute) Hypertension (Chronic) Medical marijuana use (Chronic) Nonalcoholic steatohepatitis (Chronic) Restless leg syndrome (Chronic) Snoring (Acute) Surgical History Arthroplasty of knee Cholecystectomy Endometrial Ablation Oophrectomy, Left Repair of umbilical hernia with mesh Repair, Tendon or Muscle Achilles Family History Mother Diabetes Father Heart disease Substance abuse Brother Substance abuse Depression Heart disease Social History Smoking/Tobacco Use Status: Never Alcohol Intake: current Alcohol Intake frequency: holidays/special occasions only Drug use: Never Substance use type: marijuana Adopted: No Caregiver/Support person: No Foster care: No Household members: none Housing: house Do you need help understanding health information?: Rarely current occupation: [employer] Sexually active: No Do you think of yourself as: straight/heterosexual Current gender identity: female Do you feel safe at home: Yes
[2020-04-05 11:28] LABS: Bacteria Moderate HPF (Negative); Crystals Negative HPF (Negative); Epithelial Cells Few HPF (Negative); Mucus Negative (Negative)
[2020-04-05 11:29] LABS: C & S Indicated? Yes; WBC 20-50 HPF (0-5)
[2020-04-05] MEDS: IRON SUCROSE COMPLEX 200 MG in Normal Saline 100 ML 400 MG IVPB (11:56)
[2020-04-05] MEDS: cefTRIAXone 1 GM/50 ML BAG IVPB (13:11)
--- NOTE | 2020-04-05 14:10 | PDOC.CMDIS ---
- If Service Date Differs Date of service: 04/05/20 Time of Service: 14:10 LACE Index Scoring Tool - Questions: Length of Stay (in days): 4 - 6 Acuity (Admit via E.D.?): Yes Comorbidities: Cerebrovascular Disease, Diabetes w/o Complication E.D. Visits: 3 - Answers: Total Score: 12 Risk of Readmission: High Risk Care Management Discharge Reason for Hospitalization: Shortness of breath. Discharge Plan: Toyin is being transferred to [facility]. Patient/Family Education Needs: Transfer plan, expectations.
[2020-04-06 13:11] LABS: VDRL, CSF Negative (Negative)
[2020-04-06 20:37] LABS: Anaplasma phagocytophilum Negative (Negative); B. miyamotoi PCR Negative (Negative); Babesia divergens/MO-1 Negative (Negative); Babesia duncani Negative (Negative); Babesia microti Negative (Negative); Ehrlichia chaffeensis Negative (Negative); Ehrlichia ewingii/canis Negative (Negative); Ehrlichia muris eauclairensis Negative (Negative)
[2020-04-06 21:55] LABS: Cytomegalovirus PCR Negative (Negative); Specimen Source CSF
[2020-04-07 15:45] LABS: Adenovirus PCR Negative (Negative); Specimen Source CSF
[2020-04-08 00:22] LABS: Specimen Source CSF; West Nile Virus PCR Negative (Negative)
[2020-04-17 11:02] LABS: Specimen Source CSF
[2020-04-17 11:04] LABS: Misc Referral (MAYO) See Comments
== END 2020-04-05 14:20 | disposition short-term general hospital (02) | DRG 884 ==
LOC: ER 23:54 → ICU 04-01 13:20
PROVIDERS: Family Medicine; Internal Medicine; Admitting Provider Internal Medicine; Emergency Provider Registered Nurse Emergency; PCP Nurse Practitioner; Visit Provider Internal Medicine
DX: R45.1 Restlessness and agitation (principal); F19.931 Other psychoactive substance use, unspecified with withdrawal delirium; N17.9 Acute kidney failure, unspecified; N39.0 Urinary tract infection, site not specified; R79.1 Abnormal coagulation profile; R00.0 Tachycardia, unspecified; G47.00 Insomnia, unspecified; R11.10 Vomiting, unspecified; R06.02 Shortness of breath; E86.0 Dehydration; E11.42 Type 2 diabetes mellitus with diabetic polyneuropathy; E11.22 Type 2 diabetes mellitus with diabetic chronic kidney disease; N18.3 Chronic kidney disease, stage 3 (moderate); I12.9 Hypertensive chronic kidney disease with stage 1 through stage 4 chronic kidney disease, or unspecified chronic kidney disease; G25.81 Restless legs syndrome; K59.00 Constipation, unspecified; E83.42 Hypomagnesemia; D50.9 Iron deficiency anemia, unspecified; E87.6 Hypokalemia; F41.9 Anxiety disorder, unspecified; Z03.818 Encounter for observation for suspected exposure to other biological agents ruled out; K21.9 Gastro-esophageal reflux disease without esophagitis; E78.5 Hyperlipidemia, unspecified; F12.90 Cannabis use, unspecified, uncomplicated; Z71.3 Dietary counseling and surveillance; B96.20 Unspecified Escherichia coli [E. coli] as the cause of diseases classified elsewhere
CPT/HCPCS: 36410; 36415; 76770; 80048; 80053; 80076; 80307; 82945; 83690; 84145; 87040; 87077; 87116; 87206; 87529; 87798; 89050; 89051; 93005; 96361; 96365; 96375; 96376; 99220; 99223; 99233; 99285; 99291; NC; U0003; 70450; 71045; 71046; 78582; 81003; 81015; 82140; 82607; 82728; 83735; 83930; 84157; 84443; 84484; 85025; 85379; 85610; 85730; 86592; 86618; 87070; 87086; 87186; 87205; 87496; 93010; 93970; G0378; J0696; J1644; J1756; J1885; J2060; J2270; J2405; J3360; J3475; J3480; J3490

== ENCOUNTER → 2020-04-01 08:06 | Outpatient (BNVA) | payer MEDICARE, BC, SELFPAY | PROVIDERS: PCP Nurse Practitioner; Referring Provider Nurse Practitioner; Visit Provider Psychiatry & Neurology Neurology | DX: R69 Illness, unspecified (principal) ==

== ENCOUNTER 2020-05-28 02:35 | Outpatient (CLI) | payer MEDICARE, BC, SELFPAY ==
[2020-05-28 12:25] LABS: HGB 12.3 g/dL (11.2-15.7); MCH 30.7 pg (27.0-33.0); MCHC 33.2 % (32.0-36.0); MCV 92.3 fL (80-95); MPV 10.3 fL (8.0-11.0); Platelet Count 182 10^3/uL (130-400); RBC 4.01 10^6/uL (3.93-5.22); RDW 17.1 % (11.7-14.6); RDW-SD 57.8 fL
[2020-05-28 13:11] LABS: ALT 25 U/L (14-59); AST 23 U/L (15-37); Albumin 3.8 g/dL (3.4-5.0); Alkaline Phosphatase 107 U/L (46-116); Anion Gap 10.5 mmol/L (3-11); BUN 32 mg/dL (7-18); Bilirubin, Total 0.3 mg/dL (0.2-1.0); CO2 26.5 mmol/L (21.0-32.0); CREATININE 1.67 mg/dL (0.55-1.02); Calcium 9.7 mg/dL (8.5-10.1); Chloride 102 mmol/L (98-107); Cholesterol 300 mg/dL (<200); Glucose 218 mg/dL (74-106); HDL Cholesterol 47 mg/dL (40-60); Magnesium 1.7 mg/dL (1.8-2.4); Potassium 4.1 mmol/L (3.5-5.1); Sodium 139 mmol/L (136-145); Triglyceride 486 mg/dL (<150)
[2020-05-28 13:32] LABS: Bilirubin, Direct 0.05 mg/dL (0.00-0.20)
[2020-05-28 13:43] LABS: LDL CHOLESTEROL 173 mg/dL (<100)
== END 2020-05-28 02:55 ==
PROVIDERS: PCP Student in an Organized Health Care Education/Training Program; Visit Provider Student in an Organized Health Care Education/Training Program
DX: E87.6 Hypokalemia (principal); E83.42 Hypomagnesemia; N17.9 Acute kidney failure, unspecified; N18.9 Chronic kidney disease, unspecified; E11.42 Type 2 diabetes mellitus with diabetic polyneuropathy; K76.0 Fatty (change of) liver, not elsewhere classified
CPT/HCPCS: 36415; 80048; 80061; 80076; 83721; 85027; 83735

== ENCOUNTER 2020-05-31 14:12 | Outpatient (CLI) | payer MEDICARE, BC, SELFPAY ==
--- NOTE | 2020-05-31 10:15 | DI.RAD_ITS ---
EXAM: XR FOOT LT COMPLETE CLINICAL HISTORY: evaluate arthritis; r/o bony path, foot pain karen, M79.671, M79.672, M19.90. TECHNIQUE: 2D digital imaging was performed. COMPARISON: MR MRI - L LOWER EXT WO CONTRAST from 11/07/2009 FINDINGS: BONES: No acute fracture is present. No bony destructive lesion is seen. There is deformity of the pr oximal phalanx 5th toe which appears postsurgical. Heel spurs are seen. JOINTS: No dislocation present. SOFT TISSUE: Vascular calcifications. IMPRESSION: No acute abnormality. DATA REPOSITORY: RADIATION DOSE DELIVERED:
--- NOTE | 2020-05-31 10:15 | DI.RAD_ITS ---
EXAM: XR FOOT RT COMPLETE CLINICAL HISTORY: eval arthritis; r/o bony pathology, foot pain, M79.671, M79.672, M19.90. TECHNIQUE: 2D digital imaging was performed. COMPARISON: CR RIGHT FOOT COMPLETE from 02/09/2012 FINDINGS: BONES: No acute fracture is present. No bony destructive lesion is seen. A plantar calcaneal spur is present JOINTS: No dislocation present. The joint spaces are well maintained. No bony erosions are seen. SOFT TISSUE: . vascular calcifications. IMPRESSION: Unremarkable radiographs of the right foot. DATA REPOSITORY: RADIATION DOSE DELIVERED:
== END 2020-05-31 14:32 ==
PROVIDERS: PCP Student in an Organized Health Care Education/Training Program; Visit Provider Student in an Organized Health Care Education/Training Program
DX: M79.671 Pain in right foot (principal); M79.672 Pain in left foot; M19.90 Unspecified osteoarthritis, unspecified site
CPT/HCPCS: 73630

== ENCOUNTER → 2020-06-10 12:28 | Outpatient (BNVA) | payer MEDICARE, BC, SELFPAY | PROVIDERS: PCP Student in an Organized Health Care Education/Training Program; Referring Provider Student in an Organized Health Care Education/Training Program; Visit Provider Internal Medicine Cardiovascular Disease | DX: R00.0 Tachycardia, unspecified (principal); Z86.73 Personal history of transient ischemic attack (TIA), and cerebral infarction without residual deficits; I10 Essential (primary) hypertension; E78.5 Hyperlipidemia, unspecified; E11.42 Type 2 diabetes mellitus with diabetic polyneuropathy | CPT/HCPCS: 99203; 99214 ==

== ENCOUNTER 2020-07-10 02:40 | Outpatient (CLI) | payer MEDICARE, BC, SELFPAY ==
--- NOTE | 2020-07-10 07:37 | DI.US_ITS ---
APPROVED REPORT EXAM: Comprehensive 2D, Doppler, and color-flow Echocardiogram Patient Location: Out-Patient [facility] Coordinator: Krissy Wilson RDCS (AE) Indications: Tachycardia, TIA, CVA Other Information Study Quality: Adequate Conclusion Left Ventricle : The left ventricle is normal size. The left ventricular systolic function is normal. The left ventricular ejection fraction is within the normal range. There is normal left ventricular wall thickness. There is normal LV segmental wall motion. The left ventricular diastolic function is abnormal. LVEF is 55%. Right Ventricle : The right ventricle is normal size. The RVSP is 18.7 mmHg. Atria : The left atrium size is normal. The right atrium size is normal. Mitral Valve : Moderate mitral annular calcification. Mitral valve leaflets have restricted excursion . Calcified mitral apparatus causing mitral stenosis. Mild mitral stenosis. Mild mitral regurgitation . Great Vessels : The aortic root is normal in size. The ascending aorta is mildly dilated. Aortic arch is normal in caliber. IVC is normal in size and collapses >50% with inspiration. See remainder of study for further details. Compared to study from 04/10/2016, there is no significant change. Wall motion Left Ventricle The left ventricle is normal size. The left ventricular systolic function is normal. The left ventric ular ejection fraction is within the normal range. There is normal left ventricular wall thickness. T here is normal LV segmental wall motion. The left ventricular diastolic function is abnormal. There i s no ventricular septal defect visualized. LVEF is 55%. Right Ventricle The right ventricle is normal size. The RVSP is 18.7 mmHg. Atria The left atrium size is normal. The right atrium size is normal. The interatrial septum is intact wit h no evidence for an atrial septal defect. Aortic Valve The Aortic valve is sclerotic. Aortic valve is trileaflet. There is no aortic valvular stenosis. No a ortic regurgitation is present. Mitral Valve Moderate mitral annular calcification. Mitral valve leaflets have restricted excursion. Calcified ever ral apparatus causing mitral stenosis. Mild mitral stenosis. Mild mitral regurgitation. Tricuspid Valve The tricuspid valve is normal in structure. There is no tricuspid valve stenosis. Trace tricuspid reg urgitation. Pulmonic Valve The pulmonary valve is normal in structure. There is no pulmonic valvular stenosis. There is no pulmo alexis valvular regurgitation. Great Vessels The aortic root is normal in size. The ascending aorta is mildly dilated. Aortic arch is normal in ca liber. IVC is normal in size and collapses >50% with inspiration. Pericardium There is no pericardial effusion. 2D Dimensions IVSD d PLAX 1.02 cm F: 0.6-1.0 LV Vol A2C d MOD 97.8 mL LVPW d PLAX 1.00 cm F: 0.6 - 1.0 LV Vol A4C d MOD 81.9 mL LVID d PLAX 4.56 cm F: 3.8 - 5.2 LA Area A4C s MOD 18.48 cm2 LVDs 3.35 cm F: 2.2 - 3.5 LA Area A2C s MOD 17.70 cm2 Ao Root d 2.49 cm F: 2.7 - 3.3 LV EF A4C MOD 54.7 % RA Area A4C 10.26 cm2 LV EF A2C MOD 54.0 % Ao Asc Diam d 3.26 cm F: 2.3 - 3.1 LV EF Biplane MOD 54.4 % LV EF Teichholz 51.4 % SV 48.82 mL LVEF (Alejandro's) 54.43 % F: 54 - 74 LV Volume 89.71 mL F: 46 - 106 LV Volume Index 50.68 mL/m2 F: 29 - 61 LV Vol Biplane MOD 89.7 mL FS 26.15 % M-Mode TAPSE 1.49 cm (M/F) >1.7 LV Diastology MV E' medial 0.068 (>0.07 m/s) E/A Ratio 1.0 LV E/e MED 19.70 (<14) MV E Vmax 1.34 (0.4-1.3 m/s) MV E' lateral 0.054 (>0.1 m/s) MV A Vmax 1.30 (0.4-1.3 m/s) LV E/e LAT 24.80 (<14) MV E/A Ratio 1.00 MV E/E' medial 19.75 MV E/E' lateral 24.83 Aortic Valve LVOT Area 2.88 cm2 AoV Area Vmax 2.44 cm2 LVOT Vmax 1.37 m/s BRIAN Mean Gianluca. 2.16 cm2 LVOT Mean Gianluca. 0.90 m/s LVOT Peak Grad 7.6 mmHg LVOT Mean Grad 3.8 mmHg LVOT VTI 0.308 m LVOT Diam s 1.90 cm AoV Vmax 1.63 m/s Velocity Ratio 0.84 AoV Mean Gianluca. 1.20 m/s AoV Peak Grad 10.6 mmHg LVOT SV 88.96 mL AoV Mean Grad 6.2 mmHg AoV VTI 0.338 m AoV Area VTI 2.63 cm2 Mitral Valve MV DT 382 (160-240 msec) MV PHT 111 msec MV Area PHT 1.98 cm2 MV VTI 0.455 m MV VTI Annulus 0.484 m MV Area VTI 2.08 (4.0-6.0 cm2) Pulmonary Valve PV Vmax 1.01 (0.5-1.5 m/s) RVOT Peak Gr. 2.95 mmHg PV Peak Grad 4.1 mmHg RVOT Mean Gr. 1.55 mmHg PV Mean Grad 2.0 mmHg RVOT VTI 0.209 m PV VTI 0.217 m RVOT Vmax 0.86 m/s Tricuspid Valve TR Peak Grad 15.6 mmHg TR Vmax 1.98 m/s RA Pressure 3.00 mmHg RVSP (TR) 18.7 mmHg
== END 2020-07-10 03:00 ==
PROVIDERS: PCP Student in an Organized Health Care Education/Training Program; Visit Provider Internal Medicine Cardiovascular Disease
DX: Z86.73 Personal history of transient ischemic attack (TIA), and cerebral infarction without residual deficits (principal); I05.2 Rheumatic mitral stenosis with insufficiency
CPT/HCPCS: 93306

== ENCOUNTER 2020-07-12 03:05 | Outpatient (CLI) | payer MEDICARE, BC, SELFPAY ==
[2020-07-12 10:03] LABS: Abs Immature Grans 0.01 10^3/uL (0.0-0.06); Absolute Basophil Count 0.02 10^3/uL (0.0-0.2); Absolute Eosinophil Count 0.11 10^3/uL (0.0-0.7); Absolute Lymphocyte Count 2.85 10^3/uL (1.2-3.4); Absolute Monocyte Count 0.53 10^3/uL (0.1-0.8); Absolute Neutrophil Count 3.47 10^3/uL (1.2-6.7); Basophils % 0.3; Eosinophils % 1.6; HCT 34.1 % (36.0-46.0); HGB 11.4 g/dL (11.2-15.7); Immature Grans % 0.1; Lymphocytes % 40.8; MCH 32.9 pg (27.0-33.0); MCHC 33.4 % (32.0-36.0); MCV 98.3 fL (80-95); MPV 10.7 fL (8.0-11.0); Monocytes % 7.6; Neutrophils % 49.6; Nucleated RBC 0 %; Platelet Count 165 10^3/uL (130-400); RBC 3.47 10^6/uL (3.93-5.22); RDW 13.5 % (11.7-14.6); RDW-SD 48.3 fL; WBC 6.99 10^3/uL (4.4-10.8)
[2020-07-12 10:47] LABS: Anion Gap 13.6 mmol/L (3-11); BUN 34 mg/dL (7-18); CO2 19.4 mmol/L (21.0-32.0); CREATININE 1.69 mg/dL (0.55-1.02); Chloride 108 mmol/L (98-107); Estimated GFR 30.18 (mL/min/1.73m2); Glucose 265 mg/dL (74-106); Potassium 4.3 mmol/L (3.5-5.1); Sodium 141 mmol/L (136-145)
== END 2020-07-12 03:25 ==
PROVIDERS: Internal Medicine; PCP Student in an Organized Health Care Education/Training Program; Visit Provider Nurse Practitioner Adult Health
DX: E83.42 Hypomagnesemia (principal); E87.6 Hypokalemia; N18.9 Chronic kidney disease, unspecified
CPT/HCPCS: 36415; 80048; 85025

== ENCOUNTER → 2020-07-15 12:31 | Outpatient (BNVA) | payer MEDICARE, BC, SELFPAY | PROVIDERS: PCP Student in an Organized Health Care Education/Training Program; Referring Provider Student in an Organized Health Care Education/Training Program; Visit Provider Internal Medicine Cardiovascular Disease | DX: E11.42 Type 2 diabetes mellitus with diabetic polyneuropathy (principal); I10 Essential (primary) hypertension; R00.0 Tachycardia, unspecified; E78.5 Hyperlipidemia, unspecified | CPT/HCPCS: 99214 ==

== ENCOUNTER → 2020-10-28 07:51 | Outpatient (BNVA) | payer OTHER, BC, SELFPAY | PROVIDERS: PCP Student in an Organized Health Care Education/Training Program; Referring Provider Nurse Practitioner; Visit Provider Nurse Practitioner Adult Health | DX: E11.42 Type 2 diabetes mellitus with diabetic polyneuropathy (principal); F10.11 Alcohol abuse, in remission | CPT/HCPCS: 99213; 99214 ==

== ENCOUNTER → 2020-11-01 11:34 | Outpatient (BNVA) | payer OTHER, BC, SELFPAY | PROVIDERS: PCP Student in an Organized Health Care Education/Training Program; Referring Provider Student in an Organized Health Care Education/Training Program; Visit Provider Internal Medicine Cardiovascular Disease | DX: E78.5 Hyperlipidemia, unspecified (principal); R00.0 Tachycardia, unspecified; Z79.899 Other long term (current) drug therapy | CPT/HCPCS: 99213 ==

== ENCOUNTER → 2020-11-26 13:00 | Outpatient (BNVA) | payer OTHER, BC, SELFPAY | PROVIDERS: PCP Student in an Organized Health Care Education/Training Program; Referring Provider Student in an Organized Health Care Education/Training Program; Visit Provider Surgery | DX: R10.11 Right upper quadrant pain (principal); N18.32 Chronic kidney disease, stage 3b; R00.0 Tachycardia, unspecified; R19.4 Change in bowel habit | CPT/HCPCS: 99214 ==

== ENCOUNTER 2020-12-25 08:21 | Day surgery (SDC) | payer OTHER, BC, SELFPAY ==
--- NOTE | 2020-12-25 07:15 | ENDO_ITS ---
Date of service: 12/25/20 Time of Service: 11:46 Endoscopy Report DATE OF PROCEDURE: 12/25/20 PRE-OP DIAGNOSIS: Abdominal pain POST-OP DIAGNOSIS: same (benign gastric polyps, colorectal polyps and diverticulosis) PROCEDURE: 1. EGD with biopsies 2. Colonoscopy with biopsies SURGEON: Mary Sawant ANESTHESIA: other (General/ASA 2/Tico Ward, HOME SCHOOL COORDINATOR) ESTIMATED BLOOD LOSS: 5 PATHOLOGY: other (gastric polyps, GE junction, Transverse polyps x5, ascending polyp x4, descending polyp) COMPLICATIONS: None DISPOSITION: same day INDICATIONS: Ms. Coley is a 65-year-old female who has been experiencing right upper quadrant/right flank pain for many years. This pain is recently gotten worse. She feels that she has mentioned this to her other doctors but nobody has worked it up. She did have a colonoscopy in 2015 which showed 1 tubular adenoma. Aside from the pain she also has been experiencing changes in her bowel habits with constipation and diarrhea. When she is constipated she ends up with nausea and vomiting until she is able to have a bowel movement. She denies any blood in her stools. Her past medical history is significant for diabetes and cardiac disease. 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 Her last visit was in October. Her last echo was in June 2020 and showed some mild mitral valve stenosis. She denies any chest pain or palpitations. I recommended an upper endoscopy and colonoscopy. The procedures were explained to her in details. Covid testing was also reviewed. Risks, benefits and complications have been reviewed. Complications include but are not limited to bleeding, pain, perforation, missed small lesion/polyp, sore throat, aspiration and adverse reaction to the medications. Questions were entertained and answered to their satisfaction and they wished to proceed. No guarantees were given or implied. COVID-19 testing explained to the patient. Reason for test reviewed. Quarantine per state requirements reviewed with patient. Patient understands and agrees to testing. We will proceed with colonoscopy and upper endoscopy under sedation PREP: Miralax/Dulcolax PROCEDURE START TIME: 10:25 PROCEDURE END TIME: 11:20 COLONOSCOPY RETRACTION TIME: 22 minutes FINDINGS: benign appearing gastric polyps Multiple colon polyps Severe sigmoid diverticulosis PROCEDURE DESCRIPTION: After informed consent was obtained the patient was take to the procedure room and placed in a supine position. Monitors were applied and a time out was done. The patients name, date of , procedure type, allergies to medications and metal in their body was reviewed. A bite block was placed and the patient was sedated. Once sedated and comfortable the gastroscope was advanced through the oropharynx which was grossly normal into the esophagus. The proximal and mid- esophagus were normal. In the distal esophagus there was no inflammation noted. The scope was advanced into the stomach and through the pylorus into the 3rd portion of the duodenum. The duodenum was noted to be normal. The scope was retracted back into the stomach. There was no inflammation noted in the stomach. There were numerous gastric polyps. several were biopsied. The scope was retro- flexed. The cardia and fundus were noted to be normal. There was no hiatal hernia noted. The scope was retracted back into the esophagus and biopsies were done of the GE junction to rule out Hancock's. The Z line was regular. The GE junction was at 35 cm. While the patient was still sedated they were placed in a left decubitous position. A rectal exam was done. External exam was normal. Internal exam revealed a normal sphincter tone and no palpable masses. The scope was then introduced and retro-flexed. No internal hemorrhoids, masses or polyps were identified on retroflexion. The scope was then advanced to the cecum with some difficulty due to severe diverticulosis of the sigmoid colon. The ileocecal valve and appendiceal orifice were identified. The prep was adequate. The scope was then slowly retracted over 22 minutes back into the rectum. Polyps were removed with cold forceps in the Ascending colon x4, transverse colon x5, and descending colon x1. There was severe diverticulosis noted in the sigmoid colon. The scope was removed and the patient was woken up and taken back to Same day surgery in stable condition. The patient tolerated the procedure well and there were no immediate complicati ons. Follow up: 2 weeks in the office. I didn't find anything on the upper scope of the colonoscopy to explain her RUQ pain.
--- NOTE | 2020-12-25 07:16 | PDOC.DSDIS_ITS ---
Discharge Plan Disposition Patient Disposition: HOME Condition: Good Discharge Details Reason For Visit: EGD and colonoscopy Attending Provider: Mary Sawant Primary Care Provider: Asia Gil Home Meds and New Rx's Prescriptions: Continued duloxetine 20 mg capsule, delayed rel sprinkle 10 mg PO DAILY RF: 0 acetaminophen 160 mg/5 mL (5 mL) solution 960 mg PO .COMPLEX RF: 0 metoprolol succinate 50 mg tablet extended release 24 hr 50 mg PO DAILY Qty: 90 RF: 3 nitroglycerin 0.4 mg tablet, sublingual 0.4 mg SL Q5M PRN (Reason: chest pain) Qty: 100 RF: 0 polyethylene glycol 3350 [Miralax] 17 gram/dose powder 8.5 g PO BID PRN (Reason: constipation) Qty: 510 RF: 6 lisinopril 10 mg tablet 10 mg PO DAILY RF: 0 neuropaway 2 tab PO TID RF: 0 (DME) lancets [BD Ultra Fine Lancets] 33 gauge misc See Rx Instructions .ROUTE .MEDSUPPLY Qty: 200 RF: 5 (DME) FreeStyle Lite Strips Strip See Rx Instructions .ROUTE .MEDSUPPLY Qty: 200 RF: 5 duloxetine 30 mg capsule,delayed release(DR/EC) 30 mg PO DAILY 30 Days Qty: 30 RF: 5 hydrochlorothiazide 25 mg tablet 25 mg PO DAILY Qty: 90 RF: 3 pantoprazole 40 mg tablet,delayed release (DR/EC) 40 mg PO DAILY Qty: 90 RF: 3 gabapentin 100 mg capsule See Rx Instructions PO .COMPLEX Qty: 120 RF: 0 atorvastatin 40 mg tablet 40 mg PO HS RF: 0 Discontinued bisacodyl [Dulcolax (bisacodyl)] 5 mg tablet,delayed release (DR/EC) 5 mg PO ONCE Qty: 4 RF: 0 polyethylene glycol 3350 17 gram powder in packet 255 g PO DAILY Qty: 15 RF: 0 Discharge Instructions Instructions: Diverticulosis (DC), Gastric Polyps (DC) Additional Instructions: Findings: multiple benign appearing polyps in the stomach (most likely due to long term care pharmacist use of pantoprazole) Severe diverticulosis of the sigmoid colon multiple polyps in the large bowel Follow up: 2 weeks Please call if you develop: fevers >101.5 Nausea or Vomiting Abdominal pain that is not transient DAY SURGERY UNIT POST ENDOSCOPY INSTRUCTIONS 1. Because there will be medication in your system for the next 24 hours, you may feel a little sleepy. Your coordination will be affected. Therefore: a. Do not drive or operate dangerous equipment for 24 hours. b. Do not drink alcohol beverages for 24 hours (not even beer). c. Plan to go home and rest for the day. 2. Generally there are no restrictions on your activity after a day or so has gone by, but you may feel a bit fatigued for a few days. 3 After you arrive home you may have a light meal and return to a normal diet as you can tolerate it without feeling sick to your stomach. 4. After surgery, you may feel pain or discomfort. This should be only transient, but if it persists please contact your doctor. 5. If there are any questions regarding the findings of your procedure, please feel free to contact your doctor. 6. If you are unable to contact your doctor with a problem, contact the hospital at [phone]. 7. Continue all your regular medications unless directed otherwise. I understand the above instructions and have no questions. Signature of Patient or Responsible Adult Escort Date/Time Name of Responsible Adult Escort Signature of Nurse Date/Time Referrals: Mary Sawant MD [ [facility] STAFF PHYSICIAN] - 01/10/21 9:00 am Activity:: Activity as Tolerated Diet:: high fiber diet Discharge Orders Discharge Orders: Discharge Order (Routine); Ordered 12/25/20 Ordered By: Mary Sawant
--- NOTE | 2020-12-25 07:21 | HPE_ITS ---
Assessment and Plan Assessment and plan (1) Abdominal pain: Status: Acute Assessment and plan: Ms. Coley is a 65-year-old female who has been experiencing right upper quadrant/right flank pain for many years. This pain is recently gotten worse. She feels that she has mentioned this to her other doctors but nobody has worked it up. She did have a colonoscopy in 2015 which showed 1 tubular adenoma. Aside from the pain she also has been experiencing changes in her bowel habits with constipation and diarrhea. When she is constipated she ends up with nausea and vomiting until she is able to have a bowel movement. She denies any blood in her stools. Her past medical history is significant for diabetes and cardiac disease. 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 Her last visit was in October. Her last echo was in June 2020 and showed some mild mitral valve stenosis. She denies any chest pain or palpitations. I recommended an upper endoscopy and colonoscopy. The procedures were explained to her in details. Covid testing was also reviewed. Risks, benefits and complications have been reviewed. Complications include but are not limited to bleeding, pain, perforation, missed small lesion/polyp, sore throat, aspiration and adverse reaction to the medications. Questions were entertained and answered to their satisfaction and they wished to proceed. No guarantees were given or implied. COVID-19 testing explained to the patient. Reason for test reviewed. Quarantine per state requirements reviewed with patient. Patient understands and agrees to testing. We will proceed with colonoscopy and upper endoscopy under sedation. Qualifiers: Abdominal location: right upper quadrant Qualified Code(s): R10.11 - Right upper quadrant pain [facility] Medical History (Updated 12/23/20 @ 15:30 by Gary Arnold) Anemia Anxiety Chronic pain disorder Hx Lyrica, Gabapentin, Opioids, Tramadol. D/C'd with mixed pain symptoms. Ortho surgery helped (2019). MJ helping. Daytime somnolence Diabetic neuropathy a. Bilateral. Esophageal stricture Foot pain, bilateral Presumed neuropathy, but Hx SURG and nerve blocks .. original Dx? GERD (gastroesophageal reflux disease) History of transient ischemic attack 2004 History of umbilical hernia Hyperlipidemia Hypertension Insomnia Medical marijuana use Nonalcoholic steatohepatitis Restless leg syndrome Doubting this Dx, 05/2020 Sinus tachycardia Snoring Stressful life event affecting family Bro (had been in rehab, s/p ICU in 05/2020).. Tubular adenoma (03/20/16) Surgical History Arthroplasty of knee Cholecystectomy Endometrial Ablation Oophrectomy, Left Repair of umbilical hernia with mesh Repair, Tendon or Muscle Achilles Family History Mother Diabetes Father Heart disease Substance abuse Brother Substance abuse Depression Heart disease Social History Smoking/Tobacco Use Status: Never Smoking risk assessment performed?: Yes Alcohol Intake: current Alcohol Intake frequency: holidays/special occasions only Drug use: Daily Substance use type: marijuana Adopted: No Caregiver/Support person: No Foster care: No Household members: none Housing: house Do you need help understanding health information?: Rarely current occupation: [employer] Sexually active: No Do you think of yourself as: straight/heterosexual Current gender identity: female Do you feel safe at home: Yes Do you feel safe in your relationship?: Yes Meds Home Medications and Allergies Allergies Allergy/AdvReac Type Severity Reaction Status Date / Time metoclopramide [From Reglan] Allergy Verified 12/23/20 15:32 pollen extracts Allergy Verified 12/23/20 15:32 propoxyphene HCl AdvReac Nausea Verified 12/23/20 15:32 [From Darvon] Home Medications Medication Instructions Recorded Confirmed Type acetaminophen 160 mg/5 mL (5 mL) 960 mg PO .COMPLEX 05/31/20 12/23/20 History oral solution metoprolol succinate 50 mg 50 mg PO DAILY #90 tab 06/10/20 12/23/20 Rx tablet,extended release 24 hr lisinopril 10 mg tablet 10 mg PO DAILY 07/08/20 12/23/20 History nitroglycerin 0.4 mg sublingual 0.4 mg SL Q5M PRN #100 tab 07/08/20 12/23/20 Rx tablet polyethylene glycol 3350 17 8.5 g PO BID PRN #510 g 07/08/20 12/23/20 Rx gram/dose oral powder atorvastatin 40 mg tablet 40 mg PO DAILY #90 tab 07/15/20 12/23/20 Rx duloxetine 30 mg capsule,delayed 30 mg PO DAILY 30 Days #30 cap 09/16/20 12/23/20 Rx release hydrochlorothiazide 25 mg tablet 25 mg PO DAILY #90 tab-cap NS 10/14/20 12/23/20 Rx pantoprazole 40 mg tablet,delayed 40 mg PO DAILY #90 tab-cap NS 10/23/20 12/23/20 Rx release duloxetine 20 mg capsule,delayed 10 mg PO DAILY cap 10/28/20 12/23/20 History release sprinkle neuropaway PO 11/07/20 11/10/20 History blood sugar diagnostic #200 each 11/17/20 12/23/20 Rx lancets 33 gauge #200 each 11/17/20 12/23/20 Rx gabapentin 100 mg capsule See Rx Instructions PO .COMPLEX 12/03/20 12/23/20 Rx #120 cap
[2020-12-25 08:42] VITALS: BP 135/71; PULSE 64; RESP 16; TEMP 36.6; O2SAT 94
[2020-12-25] MEDS: Lactated Ringers 1,000 ML 80 ML IV (09:00)
--- NOTE | 2020-12-25 10:30 | BOWEL_PTH ---
PATIENT: Toyin Coley I LOC: [facility] U#:[id number] AGE/SX: 65/F ROOM: RE12/25/[address]: Mary Sawant MD : [id number] BED: DIS: 12/25/2020 SPEC #: [id number] RECD: 12/25/20 12:42 STATUS: MADHU RENicci #: [id number] STACY: 12/25/20 10:[address]: Mary Sawant DEPT: Surgical Specimen RECD BY: Lalitha Hsu ENTERED: 12/25/20 12:44 SP TYPE: Bowel OTHR DR: Asia Gil DO Tissues: 1 - STOMACH BIOPSY 2 - ESOPHAGUS BIOPSY 3 - BIOPSY BOWEL 4 - BIOPSY BOWEL 5 - BIOPSY BOWEL 6 - BIOPSY BOWEL 7 - BIOPSY BOWEL Procedures: GROSS AND MICRO LEVEL 4 Comments: [id number]
[2020-12-25 11:56] VITALS: BP 143/65; PULSE 55; RESP 18; TEMP 36.1; O2SAT 99
== END 2020-12-25 12:26 | disposition home or self-care (01) ==
LOC: SUR 08:21
PROVIDERS: PCP Student in an Organized Health Care Education/Training Program; Visit Provider Surgery
PROC: (CPT 45380; principal; 2020-12-25 09:30)
DX: K31.7 Polyp of stomach and duodenum (principal); D12.2 Benign neoplasm of ascending colon; D12.3 Benign neoplasm of transverse colon; D12.4 Benign neoplasm of descending colon; K57.30 Diverticulosis of large intestine without perforation or abscess without bleeding; R19.4 Change in bowel habit; E11.22 Type 2 diabetes mellitus with diabetic chronic kidney disease; E11.40 Type 2 diabetes mellitus with diabetic neuropathy, unspecified; Z86.010 Personal history of colon polyps; N18.32 Chronic kidney disease, stage 3b; R10.11 Right upper quadrant pain
CPT/HCPCS: 45380; 43239; 88305; J2001; J2704

== ENCOUNTER 2020-12-27 04:58 | Outpatient (CLI) | payer OTHER, BC, SELFPAY ==
--- NOTE | 2020-12-27 08:15 | DI.US_ITS ---
EXAM: US ABDOMEN CLINICAL HISTORY: RUQ pain, nl EGD/[place], hx of cholecystectomy,R10.11 TECHNIQUE: Ultrasound abdomen performed using standard protocol. COMPARISON: CT CTA THORAX from 04/09/2016 CT CTA THORAX from 04/09/2016 CT LUMBAR SPINE SI JOINTS WO from 08/23/2016 CT LUMBAR SPINE SI JOINTS WO from 08/23/2016 FINDINGS: LIVER: Enlarged 17.9 cm. Moderate fatty infiltration.. No focal liver lesions are seen.. GALLBLADDER: Patient is status post cholecystectomy. There is a 7 millimeter stone within what is li nilda a cystic duct remnant. There is surrounding wall thickening. No pericholecystic fluid identifie d. BILIARY SYSTEM: No intrahepatic or extrahepatic biliary ductal dilation. KIDNEYS: Kidneys are symmetric in size. No evidence of renal calculi. No evidence of hydronephrosis. Small bilateral renal cysts. PANCREAS: Normal where visualized. SPLEEN: Not enlarged. ABDOMINAL AORTA AND IVC: Visualized portions normal caliber. ASCITES: None seen. IMPRESSION: Status post cholecystectomy. A stone is seen within a cystic duct remnant. This is visible on previ ous lumbar spine CT and previous chest CT from 2016.. DATA REPOSITORY:
== END 2020-12-27 05:18 ==
PROVIDERS: PCP Student in an Organized Health Care Education/Training Program; Visit Provider Surgery
DX: R10.11 Right upper quadrant pain (principal); Z90.49 Acquired absence of other specified parts of digestive tract; K80.50 Calculus of bile duct without cholangitis or cholecystitis without obstruction
CPT/HCPCS: 76700

== ENCOUNTER → 2021-01-07 08:22 | Outpatient (BNVA) | payer OTHER, BC, SELFPAY | PROVIDERS: PCP Student in an Organized Health Care Education/Training Program; Referring Provider Student in an Organized Health Care Education/Training Program; Visit Provider Surgery | DX: Z48.815 Encounter for surgical aftercare following surgery on the digestive system (principal); K22.70 Barrett's esophagus without dysplasia; D36.9 Benign neoplasm, unspecified site; K80.20 Calculus of gallbladder without cholecystitis without obstruction | CPT/HCPCS: 99212; 99213 ==

== ENCOUNTER → 2021-01-08 12:48 | Outpatient (BNVA) | payer OTHER, BC, SELFPAY | PROVIDERS: PCP Student in an Organized Health Care Education/Training Program; Referring Provider Student in an Organized Health Care Education/Training Program; Visit Provider Nurse Practitioner Adult Health | DX: G62.9 Polyneuropathy, unspecified (principal); F32.9 Major depressive disorder, single episode, unspecified; E11.9 Type 2 diabetes mellitus without complications; R60.0 Localized edema | CPT/HCPCS: 99213; 99214 ==

== ENCOUNTER 2021-01-28 10:53 | Emergency (ER) | payer OTHER, BC, SELFPAY ==
[2021-01-28] VITALS (42 sets, daily range): BP systolic 112–142; BP diastolic 49–77; PULSE 75–91; RESP 22; TEMP 35.9–36.7; O2SAT 93–99
--- NOTE | 2021-01-28 11:30 | RT.EKG_ITS ---
APPROVED REPORT Exam: Resting ECG Patient Location: E HR:86 bpm ECG Measurements Heart Rate 86 AXIS UT 214 P 43 QRSd 91 QRS 68 QT 374 T 7 QTc 447 Conclusion Sinus rhythm...normal P axis, V-rate 60- 99 Borderline prolonged UT interval...UT >212, V-rate 50- 90 Low voltage, precordial leads...precordial leads <1.0mV I have reviewed and interpreted ECG and agree with software generated interpretation.
--- NOTE | 2021-01-28 11:30 | DI.RAD_ITS ---
EXAM: XR CHEST 2V PA LATERAL CLINICAL HISTORY: edema TECHNIQUE: 2D digital imaging was performed. COMPARISON: CR,XR XR CHEST 2V PA LATERAL from 03/30/2020 CR XR PORTABLE CHEST AP from 04/02/2020 FINDINGS: The heart is enlarged. The lungs are clear and well expanded. No pleural effusion seen. Mediastinal contours appear intact. IMPRESSION: Cardiomegaly, otherwise unremarkable examination. RADIATION DOSE DELIVERED: Total DLP
--- NOTE | 2021-01-28 11:58 | ED.GENADUL_ITS ---
Discharge Plan Disposition Patient Disposition: [facility] Condition: Serious Discharge Details Clinical Impression: Acute cholangitis, Anasarca, GETACHEW (acute kidney injury) Primary Care Provider: Asia Gil ED Provider: Zeke Walls [place] Meds and New Rx's Prescriptions: No Action duloxetine 20 mg capsule, delayed rel sprinkle 10 mg PO DAILY RF: 0 metoprolol succinate 50 mg tablet extended release 24 hr 50 mg PO DAILY Qty: 90 RF: 3 nitroglycerin 0.4 mg tablet, sublingual 0.4 mg SL Q5M PRN (Reason: chest pain) Qty: 100 RF: 0 polyethylene glycol 3350 [Miralax] 17 gram/dose powder 8.5 g PO BID PRN (Reason: constipation) Qty: 510 RF: 6 lisinopril 10 mg tablet 10 mg PO DAILY RF: 0 neuropaway 2 tab PO TID RF: 0 (DME) lancets [BD Ultra Fine Lancets] 33 gauge misc See Rx Instructions .ROUTE .MEDSUPPLY Qty: 200 RF: 5 (DME) FreeStyle Lite Strips Strip See Rx Instructions .ROUTE .MEDSUPPLY Qty: 200 RF: 5 lidocaine-prilocaine 2.5-2.5 % cream 1 g topical ONCE PRN (Reason: neuropathic pain) Qty: 30 RF: 3 gabapentin 100 mg capsule See Rx Instructions PO .COMPLEX Qty: 150 RF: 0 duloxetine 30 mg capsule,delayed release(DR/EC) 30 mg PO DAILY 30 Days Qty: 30 RF: 5 pantoprazole 40 mg tablet,delayed release (DR/EC) 40 mg PO DAILY Qty: 90 RF: 3 atorvastatin 40 mg tablet 40 mg PO HS RF: 0 acetaminophen 325 mg Tablet 650 mg PO Q4H PRN PRNRF: 0 calcium carbonate 500 mg calcium (1,250 mg) Tablet,Chewable 500 - 1,000 mg PO Q4H PRN PRNRF: 0 mirtazapine 7.5 mg tablet 7.5 mg PO QHS RF: 0 Discharge Data Discharge Date/Time-TO BE ENTERED AT DEPARTURE: 01/28/21 18:03 Medical Decision Making <SHARI Sánchez - Last Filed: 01/29/21 17:42> Patient appears to be volume overloaded with acute anasarca likely multifactorial Acute cholangitis, initiated on Zosyn Case is discussed with Dr. Paz, hospitalist on-call for [facility] he states that they were unable to take their patient in transfer as they are completely at full bed status and their emergency room is on divert Case is discussed with our admitting hospitalist, Dr. Celeste who feels that the patient may benefit from more urgent intervention and would like patient to be transferred to a higher level of care Plan Patient has now been accepted in transfer by Dr. Brown at 1651 Patient is willing to be transferred back to [facility] at this time she is stable She is received Zosyn She will be signed out to Zeke Walls, physician event sales assistant pending transport, she will be transported via BLS at this time and is stable to do so Differential Diagnosis Differential Diagnosis: Cholangitis, anasarca, renal failure, electrolyte abnormality <SHARI Padilla - Last Filed: 01/28/21 18:08> I assumed care of this patient from my colleague SHARI Macias. Please see her initial HPI and examination. At time of signout patient has already been accepted for transfer to [facility], awaiting EMS transfer. Patient reports that she is due for her next dose of Tylenol, 650 p.o. given. Patient has no additional questions or concerns, remained hemodynamically stable under my care. No additional interventions were required. HPI <SHARI Sánchez - Last Filed: 01/29/21 17:42> This 65-year-old female with history of chronic constipation, right atypical chest pain,, constipation presents with report of generalized edema. Patient was recently discharged from [facility] yesterday for ERCP which was partially successful. She states that they gave her IV hydration as her creatinine was elevated. She states that now she has so much edema that she is quite uncomfortable. She denies any chest pain or shortness of breath. She denies dizziness or weakness. She states she is had approximately 21 pounds of weight gain in the past 10 days which is unusual for her. She denies any change in diet. She denies any pain. She just generally feels reportedly unwell. She is urinating within normal limits. Denies fever or chills. Denies any nausea or vomiting. Denies constipation. Wet-to-dry dressing General Date/Time Provider Initiated Documentation: 01/28/21 11:08 . Related Data Home Medications Medication Instructions Recorded Confirmed metoprolol succinate 50 mg 50 mg PO DAILY #90 tab 06/10/20 01/28/21 tablet,extended release 24 hr lisinopril 10 mg tablet 10 mg PO DAILY 07/08/20 01/28/21 nitroglycerin 0.4 mg sublingual 0.4 mg SL Q5M PRN #100 tab 07/08/20 01/28/21 tablet polyethylene glycol 3350 17 8.5 g PO BID PRN #510 g 07/08/20 01/28/21 gram/dose oral powder duloxetine 30 mg capsule,delayed 30 mg PO DAILY 30 Days #30 cap 09/16/20 01/28/21 release pantoprazole 40 mg tablet,delayed 40 mg PO DAILY #90 tab-cap NS 10/23/20 01/28/21 release duloxetine 20 mg capsule,delayed 10 mg PO DAILY cap 10/28/20 12/25/20 release sprinkle neuropaway 2 tab PO TID 11/07/20 01/28/21 blood sugar diagnostic #200 each 11/17/20 12/23/20 lancets 33 gauge #200 each 11/17/20 12/23/20 atorvastatin 40 mg PO HS 12/25/20 01/28/21 gabapentin 100 mg capsule See Rx Instructions PO .COMPLEX 01/08/21 01/28/21 #150 cap lidocaine-prilocaine 2.5 %-2.5 % 1 g TOPICAL ONCE PRN #30 g 01/08/21 01/28/21 topical cream acetaminophen 650 mg PO Q4H PRN PRN 01/28/21 01/28/21 calcium carbonate 500 - 1,000 mg PO Q4H PRN PRN 01/28/21 01/28/21 mirtazapine 7.5 mg PO QHS 01/28/21 01/28/21 Previous Rx's Medication Instructions Recorded metoprolol succinate 50 mg 50 mg PO DAILY #90 tab 06/10/20 tablet,extended release 24 hr nitroglycerin 0.4 mg sublingual 0.4 mg SL Q5M PRN #100 tab 07/08/20 tablet polyethylene glycol 3350 17 8.5 g PO BID PRN #510 g 07/08/20 gram/dose oral powder duloxetine 30 mg capsule,delayed 30 mg PO DAILY 30 Days #30 cap 09/16/20 release pantoprazole 40 mg tablet,delayed 40 mg PO DAILY #90 tab-cap NS 10/23/20 release blood sugar diagnostic #200 each 11/17/20 lancets 33 gauge #200 each 11/17/20 gabapentin 100 mg capsule See Rx Instructions PO .COMPLEX 01/08/21 #150 cap lidocaine-prilocaine 2.5 %-2.5 % 1 g TOPICAL ONCE PRN #30 g 01/08/21 topical cream Allergies Allergy/AdvReac Type Severity Reaction Status Date / Time metoclopramide [From Reglan] Allergy Verified 01/28/21 11:10 pollen extracts Allergy Verified 01/28/21 11:10 propoxyphene HCl AdvReac Nausea Verified 01/28/21 11:10 [From [facility]] General Stated Complaint: GenMedical SHERIDAN: 3 <SHARI Padilla - Last Filed: 01/28/21 18:08> This 65-year-old female with history of chronic constipation, right atypical chest pain,, constipation presents with report of generalized edema. Patient was recently discharged from [facility] yesterday for ERCP which was partially successful. She states that they gave her IV hydration as her creatinine was elevated. She states that now she has so much edema that she is quite uncomfortable. She denies any chest pain or shortness of breath. She denies dizziness or weakness. She states she is had approximately 21 pounds of weight gain in the past 10 days which is unusual for her. She denies any change in diet. She denies any pain. She just generally feels reportedly unwell. She is urinating within normal limits. Denies fever or chills. Denies any nausea or vomiting. Denies constipation. Wet-to-dry dressing Review of Systems <SHARI Sánchez - Last Filed: 01/29/21 17:42> Narrative: Review of systems obtained x7 aside from where indicated in HPI they PFSH <SHARI Sáncehz - Last Filed: 01/29/21 17:42> Medical History Anemia Anxiety Chronic pain disorder Hx Lyrica, Gabapentin, Opioids, Tramadol. D/C'd with mixed pain symptoms. Ortho surgery helped (2019). MJ helping. Daytime somnolence Diabetic neuropathy a. Bilateral. Esophageal stricture Foot pain, bilateral Presumed neuropathy, but Hx SURG and nerve blocks .. original Dx? GERD (gastroesophageal reflux disease) History of transient ischemic attack 2005 History of umbilical hernia Hyperlipidemia Hypertension Insomnia Medical marijuana use Nonalcoholic steatohepatitis Restless leg syndrome Doubting this Dx, 05/2020 Sinus tachycardia Snoring Stressful life event affecting family Bro (had been in rehab, s/p ICU in 05/2020).. Tubular adenoma (03/20/16) Surgical History Arthroplasty of knee Cholecystectomy Endometrial Ablation H/O esophagogastroduodenoscopy (~12/25/20) Hx of colonoscopy (~12/25/20) 2020-Tubular adenomas x10 Oophrectomy, Left Repair of umbilical hernia with mesh Repair, Tendon or Muscle Achilles Family History Mother Diabetes Father Heart disease Substance abuse Brother Substance abuse Depression Heart disease Social History Smoking/Tobacco Use Status: Never Smoking risk assessment performed?: Yes Alcohol Intake: current Alcohol Intake frequency: holidays/special occasions only Drug use: Occasionally Substance use type: marijuana Details: smoked small amount evening 12/24/20 for nausea Adopted: No Caregiver/Support person: No Foster care: No Household members: none Housing: house Do you need help understanding health information?: Rarely current occupation: [employer] Sexually active: No Do you think of yourself as: straight/heterosexual Current gender identity: female Do you feel safe at home: Yes Do you feel safe in your relationship?: Yes Additional Social history: lives alone Exam <SHARI Sánchez - Last Filed: 01/29/21 17:42> Const General: cooperative and ill appearing Eyes Pupils: PERRL Chest Chest: normal inspection of the chest Resp Effort & Inspection: normal respiratory effort Auscultation: lung sounds not diminished Cardio Rate: regular rate Rhythm: regular rhythm GI Other: 2+ edema to abdomen and lower extremities, nontender Skin General skin exam: no rashes or lesions noted Neuro General: patient alert and patient oriented x3 Extrem Other: 2+ edema to bilateral lower extremities, nontender Course <SHARI Sánchez - Last Filed: 01/29/21 17:42> Vital Signs Vital signs: Vital Signs Temperature 35.9 C L 01/28/21 11:06 Pulse 91 H 01/28/21 11:06 Respiratory Rate 22 01/28/21 11:06 Blood Pressure 139/65 01/28/21 11:06 Pulse Oximetry 99 01/28/21 11:06 Temperature 35.9 C L 01/28/21 11:06 Temperature Source Skin 01/28/21 11:06 Pulse 91 H 01/28/21 11:06 Respiratory Rate 22 01/28/21 11:06 Respiratory Effort Non-Labored 01/28/21 11:09 Blood Pressure 139/65 01/28/21 11:06 Blood Pressure Position Sitting 01/28/21 11:06 Pulse Oximetry 99 01/28/21 11:06 Oxygen Delivery Method Room Air 01/28/21 11:06 Oxygen Flow Rate 0 01/28/21 11:06 Sign Out <SHARI Sánchez - Last Filed: 01/29/21 17:42> Sign Out Data: Sign Out Comment: pending [facility] [place] transfer Last updated by Lalitha Macias PA at 01/28/21 16:57
[2021-01-28 12:44] LABS: Abs Immature Grans 0.22 10^3/uL (0.0-0.06); Absolute Eosinophil Count 0.02 10^3/uL (0.0-0.7); Absolute Neutrophil Count 19.22 10^3/uL (1.2-6.7); Basophils % 0.2; Eosinophils % 0.1; HCT 26.7 % (36.0-46.0); Lymphocytes % 3.4; MCH 31.7 pg (27.0-33.0); MCHC 33.7 % (32.0-36.0); MPV 11.8 fL (8.0-11.0); Monocytes % 4.3; Nucleated RBC 0 %; Platelet Count 115 10^3/uL (130-400); RBC 2.84 10^6/uL (3.93-5.22); RDW 12.6 % (11.7-14.6); RDW-SD 43.5 fL; WBC 21.12 10^3/uL (4.4-10.8)
[2021-01-28] MEDS: Acetaminophen 325 MG TAB 650 MG PO ×2 (12:50→17:13)
[2021-01-28 12:57] LABS: Absolute Basophil Count 0.04 10^3/uL (0.0-0.2); Absolute Lymphocyte Count 0.72 10^3/uL (1.2-3.4); Absolute Monocyte Count 0.91 10^3/uL (0.1-0.8)
[2021-01-28 13:04] LABS: ALT 54 U/L (14-59); AST 74 U/L (15-37); Albumin 1.6 g/dL (3.4-5.0); Alkaline Phosphatase 285 U/L (46-116); BUN 35 mg/dL (7-18); Bilirubin, Total 1.2 mg/dL (0.2-1.0); CREATININE 2.2 mg/dL (0.55-1.02); Calcium 8.3 mg/dL (8.5-10.1); Chloride 100 mmol/L (98-107); Estimated GFR 22.26 (mL/min/1.73m2); Glucose 153 mg/dL (74-106); Magnesium 1.6 mg/dL (1.8-2.4); NT-proBNP 14450 pg/mL (<300); Potassium 4.2 mmol/L (3.5-5.1); Sodium 134 mmol/L (136-145); Total Protein 6.3 g/dL (6.4-8.2)
[2021-01-28 13:06] LABS: Troponin I < 0.05 ng/mL (<0.06)
[2021-01-28 13:21] LABS: Lipase 3349 U/L (73-393)
[2021-01-28] MEDS: PIPERACILLIN/TAZO 3.375 GM in Normal Saline 50 ML IVPB (15:22)
== END 2021-01-28 18:03 | disposition short-term general hospital (02) ==
PROVIDERS: Physician Assistant; Emergency Provider Physician Assistant; PCP Student in an Organized Health Care Education/Training Program
DX: R60.1 Generalized edema (principal); K83.09 Other cholangitis; N17.8 Other acute kidney failure
CPT/HCPCS: 36415; 80053; 83690; 93005; 96365; 99285; 71046; 81003; 83735; 83880; 84484; 85025; 93010; J2543

== ENCOUNTER 2021-02-04 00:32 | Inpatient (IN) | payer OTHER, BC, SELFPAY ==
[2021-02-04] VITALS (79 sets, daily range): BP systolic 113–191; BP diastolic 54–101; PULSE 87–157; RESP 6–30; TEMP 36.2–37.1; O2SAT 88–100
--- NOTE | 2021-02-04 | DI.US_ITS ---
APPROVED REPORT EXAM: Comprehensive 2D, Doppler, and color-flow Echocardiogram Patient Location: In-Patient Room/Bed: [id number] Indications: CHF, Elevated troponin,SOB Other Information Study Quality: Technically Difficult. Technically limited study due to inability to position patient, body habitus. Conclusion Technically limited study. Left Ventricle : The left ventricle is normal size. Left ventricular systolic function is moderately decreased. There is normal left ventricular wall thickness. Unable to evaluate regional wall motion due to technically limited study. The left ventricular diastolic function is abnormal. LVEF is 35-40 %. Right Ventricle : Right ventricle is mildly dilated. Right ventricular systolic function is grossly n ormal. The RVSP is 38.0 mmHg. Atria : The left atrium size is normal. The right atrium size is normal. Mitral Valve : Moderate mitral annular calcification. Mitral valve leaflets are moderately thickened. Mitral valve leaflets have restricted excursion. Trace to mild mitral regurgitation. Mild to moderat e mitral stenosis. Great Vessels : The aortic root is normal in size. The ascending aorta is mildly dilated. Aortic arch is normal in caliber. IVC is normal in size and collapses >50% with inspiration. Compared to prior echocardiogram from 07/10/2020, the patient's ejection fraction is now reduced. Wall motion Left Ventricle The left ventricle is normal size. Left ventricular systolic function is moderately decreased. There is normal left ventricular wall thickness. Regional wall motion abnormalities could not be assessed a s this is a technically limited study. The left ventricular diastolic function is abnormal. There is no ventricular septal defect visualized. LVEF is 35-40%. Right Ventricle Right ventricle is mildly dilated. Right ventricular systolic function is grossly normal. The RVSP is 38.0 mmHg. Atria The left atrium size is normal. The right atrium size is normal. The interatrial septum is intact wit h no evidence for an atrial septal defect. Aortic Valve The Aortic valve is sclerotic. Aortic valve is trileaflet. There is no aortic valvular stenosis. No a ortic regurgitation is present. Mitral Valve Moderate mitral annular calcification. Mitral valve leaflets are moderately thickened. Mitral valve l eaflets have restricted excursion. Mild to moderate mitral stenosis. Trace to mild mitral regurgitati on. Tricuspid Valve The tricuspid valve is normal in structure. There is no tricuspid valve stenosis. Trace tricuspid reg urgitation. Pulmonic Valve The pulmonary valve is normal in structure. There is no pulmonic valvular stenosis. There is no pulmo alexis valvular regurgitation. Great Vessels The aortic root is normal in size. The ascending aorta is mildly dilated. Aortic arch is normal in ca liber. IVC is normal in size and collapses >50% with inspiration. Pericardium There is no pericardial effusion. 2D Dimensions IVSD d PLAX 1.03 cm F: 0.6-1.0 LV Vol A2C d MOD 88.8 mL LVPW d PLAX 1.03 cm F: 0.6 - 1.0 LV Vol A4C d MOD 72.8 mL LVID d PLAX 4.57 cm F: 3.8 - 5.2 LA vol/ BSA A2C s A-L 29.1 mL/m2 LVDs 3.75 cm F: 2.2 - 3.5 LA vol/ BSA A4C s A-L 25.5 mL/m2 Ao Root d 2.66 cm F: 2.7 - 3.3 LA Vol/ BSA Biplane s A-L 27.5 mL/m2 RA Area A4C 11.30 cm2 LA Area A4C s MOD 18.62 cm2 RA Vol/ BSA A4C s A-L 12.0 mL/m2 LA Area A2C s MOD 20.04 cm2 Ao Asc Diam d 3.36 cm F: 2.3 - 3.1 LV EF A4C MOD 40.2 % LV EF Teichholz 36.9 % LV EF A2C MOD 35.1 % LVEF (Alejandro's) 36.47 % F: 54 - 74 LV EF Biplane MOD 36.5 % LV Volume 61.28 mL F: 46 - 106 SV 29.67 mL LV Volume Index 31.10 mL/m2 F: 29 - 61 SV Index 15.03 mL/m2 LV Vol Biplane MOD 81.4 mL FS 17.65 % M-Mode TAPSE 1.64 cm (M/F) >1.7 LV Diastology MV E' medial 0.050 (>0.07 m/s) E/A Ratio 0.9 LV E/e MED 29.35 (<14) MV E Vmax 1.47 (0.4-1.3 m/s) MV E' lateral 0.072 (>0.1 m/s) MV A Vmax 1.60 (0.4-1.3 m/s) LV E/e LAT 20.40 (<14) MV E/A Ratio 0.90 MV E/E' medial 29.37 MV E/E' lateral 20.41 Aortic Valve LVOT Area 2.83 cm2 AoV Area Vmax 2.41 cm2 LVOT Vmax 1.49 m/s AoV Area/ BSA (Vmax) 1.22 cm2/m2 LVOT Mean Gianluca. 1.11 m/s BRIAN Mean Gianluca. 2.37 cm2 LVOT Peak Grad 8.8 mmHg BRIAN Mean Gianluca. Index 1.20 cm2/m2 LVOT Mean Grad 5.2 mmHg LVOT VTI 0.312 m LVOT Diam s 1.85 cm AoV Vmax 1.74 m/s Velocity Ratio 0.85 AoV Mean Gianluca. 1.32 m/s AoV Peak Grad 12.2 mmHg LVOT SV 88.10 mL AoV Mean Grad 7.5 mmHg AoV VTI 0.350 m AoV Area VTI 2.52 cm2 AoV Area/ BSA (VTI) 1.28 cm/m2 Mitral Valve MV DT 486 (160-240 msec) MV PHT 141 msec MV Area PHT 1.56 cm2 MV VTI 0.407 m MV VTI Annulus 0.415 m MV Area VTI 2.22 (4.0-6.0 cm2) Pulmonary Valve PV Vmax 0.76 (0.5-1.5 m/s) RVOT Peak Gr. 2.57 mmHg PV Peak Grad 2.3 mmHg RVOT Mean Gr. 1.35 mmHg PV Mean Grad 1.4 mmHg RVOT VTI 0.167 m PV VTI 0.142 m RVOT Vmax 0.80 m/s Tricuspid Valve TR Peak Grad 34.9 mmHg TR Vmax 2.96 m/s RA Pressure 3.00 mmHg RVSP (TR) 38.0 mmHg
--- NOTE | 2021-02-04 | DI.CT_ITS ---
EXAM: CT ABDOMEN PELVIS W CLINICAL HISTORY: abdominal pain; anemia; ?retroperitoneal bleed TECHNIQUE: Imaging Protocol: Axial computed tomography images with coronal and sagittal reformatted images were created and reviewed CONTRAST MATERIAL: Intravenous: Omnipaque 350 Contrast volume:65 mL Oral: No COMPARISON: Comparison examination from [facility] dated 01/29/2021. FINDINGS: ABDOMEN: Lung Bases: There moderate size bilateral pleural effusions with subjacent infiltrates which may repr esent atelectasis or pneumonia. Liver: Normal density. No measurable mass. There appears to be a nodular liver suspicious for hepatic cirrhosis. Please correlate clinically. Portal, Superior Mesenteric, and Splenic Veins: Unremarkable. Gallbladder and Biliary Tract: Status post cholecystectomy. There is again seen a retroperitoneal fl uid collection adjacent to the head of the pancreas and 2nd portion of the duodenum. It measures at least 16 cm by 7 cm by 11 cm. It also has a thin enhancing rim suspicious for an abscess. There is a 4.9 x 4.1 cm fluid collection with a thin enhancing rim adjacent to the hepatic flexure anteriorly suspicious for an abscess. This may communicate with the larger fluid collection posteriorly. There is a linear air collection suspicious for pneumobilia. No intrahepatic biliary ductal dilatation is present. Pancreas: There is mild stranding seen around the pancreas. Spleen: Normal. Adrenals: No masses seen. Kidneys: Normal size, contour and axis. No radiodense stones or obstructive uropathy. No masses seen. Abdominal Aorta: Abdominal portion non-dilated. Moderate atherosclerosis. Bowel: No obstruction or bowel wall thickening. Colonic diverticulosis but no evidence of acute diver ticulitis. No evidence of appendicitis. Peritoneal Cavity: Moderate amount of fluid is seen in the right pericolic gutter. A small to modera te amount of fluid is seen in the pelvis. No free air. Lymph Nodes: Within normal limits. Bones: Within normal limits for the patient's age. Soft Tissues: There is a large amount of subcutaneous fluid present. PELVIS: Bladder: A Suh catheter is seen in a nondistended urinary bladder. Reproductive Organs: Unremarkable as visualized. Lymph Nodes: Within normal limits. Bones: Within normal limits for the patient's age. IMPRESSION: 1. Persistent large fluid collection in the right upper quadrant of the abdomen suspicious for an abs cess. 2. Status post cholecystectomy. Findings suspicious for pneumobilia. 3. Moderate amount of abdominal pelvic free fluid. 4. Inflammatory stranding seen around the pancreas suspicious for pancreatitis. 5. Large amount of subcutaneous edema suspicious for anasarca. 6. Moderate bilateral pleural effusions and subjacent infiltrates suspicious for atelectasis or pneum onia. 7. Results of this exam have been verbally communicated with provider. RADIATION DOSE DELIVERED: 1,420.11mGy.cm Total DLP DATA REPOSITORY: All CT scans at this facility are submitted to the National Radiology Data Registry (NRDR) Dose Index Registry (DIR) with the [employer] ([employer]). RADIATION OPTIMIZATION: All CT scans at this facility use at least one of these dose optimization te chniques: automated exposure control; mA and/or kV adjustment per patient size (includes targeted exa ms where dose is matched to clinical indication); or iterative reconstruction.
--- NOTE | 2021-02-04 | DI.US_ITS ---
EXAM: US ABDOMEN CLINICAL HISTORY: leukocytosis, abnormal LFT TECHNIQUE: Ultrasound abdomen performed using standard protocol. COMPARISON: US US ABDOMEN from 12/27/2020 FINDINGS: ABDOMINAL AORTA AND IVC: Could not be visualized due to overlying bowel gas. PANCREAS: Obscured by overlying bowel. LIVER: The liver measures 16.8 cm in length. No hepatic mass is present. Hepatopedal flow in the Po rtal Vein. GALLBLADDER: Status post cholecystectomy. Delete BILIARY SYSTEM: Common bile duct measures < 7 mm. No intrahepatic biliary ductal dilation. KIDNEYS: Kidneys are symmetric in size. No evidence of renal calculi. No evidence of hydronephrosis. No renal mass or cyst identified. SPLEEN: The spleen is 12.3 cm in length. ASCITES: There is a complex fluid collection in the right upper quadrant of the abdomen which appears to measure at least 16 cm in length. There are bilateral pleural effusions noted. IMPRESSION: 1. Examination limited by overlying bowel. 2. Large complex fluid collection in the right upper quadrant of the abdomen. Differential considera tions would include hematoma or abscess. Postoperative seroma should also be considered. 3. Bilateral pleural effusions. 4. Status post cholecystectomy. No biliary ductal dilatation. DATA REPOSITORY:
--- NOTE | 2021-02-04 00:30 | RT.EKG_ITS ---
APPROVED REPORT Exam: Resting ECG Patient Location: E HR:144 bpm ECG Measurements Heart Rate 144 AXIS MO [id number] P 0 QRSd 92 QRS 62 QT 311 T 46 QTc 482 Conclusion Sinus tachycardia...rate> 99 Ventricular premature complex...V complex w/ short R-R interval Low voltage, extremity and precordial leads...extremity<0.5mV, precordial<1.0mV
--- NOTE | 2021-02-04 00:30 | DI.RAD_ITS ---
EXAM: XR PORTABLE CHEST AP CLINICAL HISTORY: shortness of breath TECHNIQUE: 2D digital imaging was performed. COMPARISON: CR XR PORTABLE CHEST AP from 04/02/2020 FINDINGS: MEDIASTINUM: Normal. HEART: The heart appears enlarged compared to the prior examination. PULMONARY VASCULATURE: There is pulmonary venous congestion. LUNGS: Bilateral predominantly perihilar interstitial infiltrates are present. PLEURAL SPACE: No pleural effusion or pneumothorax. BONE:Within normal limits for the patient's age. OTHER FINDINGS:Normal. IMPRESSION: Findings suggestive of pulmonary venous congestion/CHF. DATA REPOSITORY: RADIATION DOSE DELIVERED:
--- NOTE | 2021-02-04 00:45 | W.ED.GENAD ---
Discharge Plan Disposition Patient Disposition: [facility] INPATIENT Condition: Poor Discharge Details Chief Complaint: SOB Clinical Impression: Acute pulmonary edema, Hypoxemia, Leukocytosis Primary Care Provider: Asia Gil ED Provider: Beau Patel Wisner Meds and New Rx's Prescriptions: No Action duloxetine 20 mg capsule, delayed rel sprinkle 10 mg PO DAILY RF: 0 metoprolol succinate 50 mg tablet extended release 24 hr 50 mg PO DAILY Qty: 90 RF: 3 nitroglycerin 0.4 mg tablet, sublingual 0.4 mg SL Q5M PRN (Reason: chest pain) Qty: 100 RF: 0 polyethylene glycol 3350 [Miralax] 17 gram/dose powder 8.5 g PO BID PRN (Reason: constipation) Qty: 510 RF: 6 neuropaway 2 tab PO TID RF: 0 (DME) lancets [BD Ultra Fine Lancets] 33 gauge misc See Rx Instructions .ROUTE .MEDSUPPLY Qty: 200 RF: 5 (DME) FreeStyle Lite Strips Strip See Rx Instructions .ROUTE .MEDSUPPLY Qty: 200 RF: 5 lidocaine-prilocaine 2.5-2.5 % cream 1 g topical ONCE PRN (Reason: neuropathic pain) Qty: 30 RF: 3 gabapentin 100 mg capsule See Rx Instructions PO .COMPLEX Qty: 150 RF: 0 duloxetine 30 mg capsule,delayed release(DR/EC) 30 mg PO DAILY 30 Days Qty: 30 RF: 5 pantoprazole 40 mg tablet,delayed release (DR/EC) 40 mg PO DAILY Qty: 90 RF: 3 atorvastatin 40 mg tablet 40 mg PO HS RF: 0 acetaminophen 325 mg Tablet 650 mg PO Q4H PRN PRNRF: 0 calcium carbonate 500 mg calcium (1,250 mg) Tablet,Chewable 500 - 1,000 mg PO Q4H PRN PRNRF: 0 mirtazapine 7.5 mg tablet 7.5 mg PO QHS RF: 0 Medical Decision Making 65 yo female with history of SIMMONS cirrhosis, lap ronnie in 2016, htn, hld, dm, gerd, ckd, who was recently admitted to [facility] for pancreatitis and discharged yesterday, comes in with acute onset shortness of breath starting tonight. EMS was called and they noted she had a oxygen saturation in the 70's, on room air. They noted wheezing and so placed her on nrb, gave her a duoneb and transported her here. She arrives only able to speak in 2 words sentences at most and is tachypneic. Mild apical wheezing bilaterally with diminished breath souns at the bases. She has pedal edema, denies any chest pain or pressure. On bedside ultrasound has bilateral b lines without pericardial effusion. Concern for possible acute pulmonary edema based on presentation and lung exam findings, will treat with dose of lasix. She also is at risk for ards, and other possibilities including pneumonia and acs. No chest pain currently, will obtain labs and portable chest xray. Bipap placed on arrival and she is tolerating this well with decrease in her work of breathing. Pt states she feels much better on bipap and work of breathing continues to improve now speaking in 4-5 word sentences, wbc reported by lab gregg over 30, will cover for possible hcap with cefepime and vancomycin Pt doing much better states she feels much better and is tolerating the bipap very well, HR decreased from 150 to 120 in sinus now. Labs show lactate of over 5 but feel she is volume overloaded so holding on fluids at this time, [facility] [place] has no beds available and given normal lipase and lft's unremarkable no clear indication for transfer especially since she has no abdominal pain or chest pain and initial troponin unremarkable. Will discuss with hospitalist about admission Differential Diagnosis Differential Diagnosis: chf, ards, pe, pneumonia, nstemi Medical Records Medical records reviewed: Yes I reviewed the patient's medical records. Imaging Data Radiologic Study: Attestation: I personally reviewed and interpreted this imaging study as follows: Imaging: X-Ray Radiologist's impression: IMPRESSION: Congestive heart failure. Lab Data Lab results reviewed: Yes I reviewed the patient's lab results. ECG Data Attestation: I personally reviewed and interpreted this ECG (s) as follows: Prior ECG tracings: available for review Interpretation: sinus tachycardia, rate of 144, qtc 482 HPI General Mode of arrival: EMS. Date/Time Provider Initiated Documentation: 02/04/21 00:33. Limitations to Documentation: physical limitation (shortness of breath). Information obtained by: patient. History of Present Illness 65 year old F presents to the emergency department with the chief complaint of shortness of breath, described as severe, Patient started experiencing this hour(s) (2) and it has been constant. No relieving factors improve symptom(s), No exacerbating factors reported . Patient notes denies chest pain. Patient did receive the following treatments prior to arrival, other (duoneb with ems) Related Data Home Medications Medication Instructions Recorded Confirmed metoprolol succinate 50 mg 50 mg PO DAILY #90 tab 06/10/20 02/04/21 tablet,extended release 24 hr nitroglycerin 0.4 mg sublingual 0.4 mg SL Q5M PRN #100 tab 07/08/20 02/04/21 tablet polyethylene glycol 3350 17 8.5 g PO BID PRN #510 g 07/08/20 02/04/21 gram/dose oral powder duloxetine 30 mg capsule,delayed 30 mg PO DAILY 30 Days #30 cap 09/16/20 02/04/21 release pantoprazole 40 mg tablet,delayed 40 mg PO DAILY #90 tab-cap NS 10/23/20 02/04/21 release duloxetine 20 mg capsule,delayed 10 mg PO DAILY cap 10/28/20 02/04/21 release sprinkle neuropaway 2 tab PO TID 11/07/20 02/04/21 blood sugar diagnostic #200 each 11/17/20 12/23/20 lancets 33 gauge #200 each 11/17/20 12/23/20 atorvastatin 40 mg PO HS 12/25/20 02/04/21 gabapentin 100 mg capsule See Rx Instructions PO .COMPLEX 01/08/21 02/04/21 #150 cap lidocaine-prilocaine 2.5 %-2.5 % 1 g TOPICAL ONCE PRN #30 g 01/08/21 02/04/21 topical cream acetaminophen 650 mg PO Q4H PRN PRN 01/28/21 02/04/21 calcium carbonate 500 - 1,000 mg PO Q4H PRN PRN 01/28/21 02/04/21 mirtazapine 7.5 mg PO QHS 01/28/21 02/04/21 Previous Rx's Medication Instructions Recorded metoprolol succinate 50 mg 50 mg PO DAILY #90 tab 06/10/20 tablet,extended release 24 hr nitroglycerin 0.4 mg sublingual 0.4 mg SL Q5M PRN #100 tab 07/08/20 tablet polyethylene glycol 3350 17 8.5 g PO BID PRN #510 g 07/08/20 gram/dose oral powder duloxetine 30 mg capsule,delayed 30 mg PO DAILY 30 Days #30 cap 09/16/20 release pantoprazole 40 mg tablet,delayed 40 mg PO DAILY #90 tab-cap NS 10/23/20 release blood sugar diagnostic #200 each 11/17/20 lancets 33 gauge #200 each 11/17/20 gabapentin 100 mg capsule See Rx Instructions PO .COMPLEX 01/08/21 #150 cap lidocaine-prilocaine 2.5 %-2.5 % 1 g TOPICAL ONCE PRN #30 g 01/08/21 topical cream Allergies Allergy/AdvReac Type Severity Reaction Status Date / Time metoclopramide [From Reglan] Allergy Verified 02/04/21 01:32 pollen extracts Allergy Verified 02/04/21 01:32 propoxyphene HCl AdvReac Nausea Verified 02/04/21 01:32 [From Darvon] General Stated Complaint: SOB SHERIDAN: 1 Review of Systems All systems reviewed & are unremarkable except as noted in HPI and below Constitutional Constitutional: Denies fever(s) Cardiovascular Cardiovascular: Denies chest pain Respiratory Respiratory: Denies cough Gastrointestinal Gastrointestinal: Denies vomiting PFSH Medical History Anemia Anxiety Chronic pain disorder Hx Lyrica, Gabapentin, Opioids, Tramadol. D/C'd with mixed pain symptoms. Ortho surgery helped (2019). MJ helping. Daytime somnolence Diabetic neuropathy a. Bilateral. Esophageal stricture Foot pain, bilateral Presumed neuropathy, but Hx SURG and nerve blocks .. original Dx? GERD (gastroesophageal reflux disease) History of transient ischemic attack 2004 History of umbilical hernia Hyperlipidemia Hypertension Insomnia Medical marijuana use Nonalcoholic steatohepatitis Restless leg syndrome Doubting this Dx, 05/2020 Sinus tachycardia Snoring Stressful life event affecting family Bro (had been in rehab, s/p ICU in 05/2020).. Tubular adenoma (03/20/16) Surgical History Arthroplasty of knee Cholecystectomy Endometrial Ablation H/O esophagogastroduodenoscopy (~12/25/20) Hx of colonoscopy (~12/25/20) 2020-Tubular adenomas x10 Oophrectomy, Left Repair of umbilical hernia with mesh Repair, Tendon or Muscle Achilles Family History Mother Diabetes Father Heart disease Substance abuse Brother Substance abuse Depression Heart disease Social History Smoking/Tobacco Use Status: Never Smoking risk assessment performed?: Yes Alcohol Intake: current Alcohol Intake frequency: holidays/special occasions only Drug use: Occasionally Substance use type: marijuana Details: smoked small amount evening 12/24/20 for nausea Adopted: No Caregiver/Support person: No Foster care: No Household members: none Housing: house Do you need help understanding health information?: Rarely current occupation: [employer] Sexually active: No Do you think of yourself as: straight/heterosexual Current gender identity: female Do you feel safe at home: Yes Do you feel safe in your relationship?: Yes Additional Social history: lives alone Exam Const General: acute distress and ill appearing Orientation: alert HENMT Head: normal to inspection Ears: external ears normal General nose exam: external nose normal Mouth: moist mucous membranes Eyes General: appearance normal, both eyes and all related structures Neck Neck: normal visual inspection Resp Effort & Inspection: respiratory distress and tachypneic Cardio Rate: tachycardic Skin General skin exam: no rashes or lesions noted Neuro General: patient alert Extrem General: normal to inspection Course Vital Signs Vital signs: Vital Signs Temperature 36.3 C L 02/04/21 00:40 Pulse 150 H 02/04/21 00:40 Respiratory Rate 30 H 02/04/21 00:40 Blood Pressure 191/101 H 02/04/21 00:40 Pulse Oximetry 98 02/04/21 00:40 Temperature 36.3 C L 02/04/21 00:40 Temperature Source Skin 02/04/21 00:40 Pulse 150 H 02/04/21 00:40 Respiratory Rate 30 H 02/04/21 00:40 Blood Pressure 191/101 H 02/04/21 00:40 Blood Pressure Position Supine 02/04/21 00:40 Pulse Oximetry 98 02/04/21 00:40 Oxygen Delivery Method Cpap 02/04/21 00:40 Lab/Test Results Lab/Test Results: 02/04/21 00:34 Blood Blood Culture - Pending 02/04/21 00:34 Blood Blood Culture - Pending Critical Care Time Critical Care Time Critical Care Time: Yes Total Critical Care Time: 60 (minutes) Attestation: time spent reviewing labs, hemodynamic monitoring and frequent reassessments in patient with respiratory distress and hypoxia requiring bipap and potential to deteriorate at any time
[2021-02-04] MEDS: Furosemide 20 MG/2 ML VIAL IVP (00:47)
[2021-02-04 00:48] LABS: BE (Venous) -6 mmol/L (-2-3); HCO3 (Venous) 21 mmol/L (23-28); O2 Sat (Venous) 88 %; TCO2 (Venous) 21 mmol/L (24-29); pCO2 (Venous) 48 mmHg (41-51); pH (Venous) 7.26 (7.31-7.41); pO2 (Venous) 66 mmHg
[2021-02-04 00:50] LABS: Abs Immature Grans 0.65 10^3/uL (0.0-0.06); HCT 27.6 % (36.0-46.0); HGB 8.7 g/dL (11.2-15.7); MCH 31.3 pg (27.0-33.0); MCHC 31.5 % (32.0-36.0); MCV 99.3 fL (80-95); MPV 11.6 fL (8.0-11.0); Nucleated RBC 0 %; RBC 2.78 10^6/uL (3.93-5.22); RDW 13.1 % (11.7-14.6); RDW-SD 47.1 fL
[2021-02-04 00:58] LABS: WBC 32.88 10^3/uL (4.4-10.8)
[2021-02-04 01:02] LABS: Bilirubin, Direct 0.5 mg/dL (0.0-0.2)
[2021-02-04 01:05] LABS: INR 1.1 (0.9-1.1); PTT Activated 27.3 sec (21.0-27.5); Prothrombin Time 11.5 sec (9.3-11.0)
[2021-02-04 01:09] LABS: ALT 41 U/L (14-59); AST 52 U/L (15-37); Absolute Lymphocyte Count 3.95 10^3/uL (1.2-3.4); Absolute Monocyte Count 1.64 10^3/uL (0.1-0.8); Absolute Neutrophil Count 26.63 10^3/uL (1.2-6.7); Albumin 1.6 g/dL (3.4-5.0); Alkaline Phosphatase 271 U/L (46-116); Anion Gap 13.2 mmol/L (3-11); Anisocytosis 1+; BUN 23 mg/dL (7-18); Bilirubin, Total 0.7 mg/dL (0.2-1.0); CO2 21.8 mmol/L (21.0-32.0); CREATININE 1.7 mg/dL (0.55-1.02); Calcium 8.6 mg/dL (8.5-10.1); Chloride 101 mmol/L (98-107); Diff Comment Manual Differential; Estimated GFR 29.98 (mL/min/1.73m2); Glucose 235 mg/dL (74-106); Lipase 136 U/L (73-393); Magnesium 1.5 mg/dL (1.8-2.4); Myelocytes % 2; NT-proBNP 12405 pg/mL (<300); Platelet Count 349 10^3/uL (130-400); Polychromasia Present; Potassium 4.8 mmol/L (3.5-5.1); Sodium 136 mmol/L (136-145); Total Protein 7.6 g/dL (6.4-8.2)
[2021-02-04 01:15] LABS: Bilirubin Negative (Negative); Blood Large (Negative); Clarity Cloudy (Clear); Glucose Negative (Negative); Ketones Negative (Negative); Leukocyte Esterase Negative (Negative); Nitrite Negative (Negative); Specific Gravity >= 1.030 (1.005-1.025); pH 5.5 (5-8)
[2021-02-04 01:22] LABS: Lactate 5.5 mmol/L (0.6-1.4)
[2021-02-04 01:27] LABS: Bacteria Rare HPF (Negative); C & S Indicated? C&S Done As Ordered; Casts Negative LPF (Negative); Crystals Moderate Amorphous HPF (Negative); Epithelial Cells Moderate HPF (Negative); Mucus Negative (Negative); WBC 0-2 HPF (0-5)
[2021-02-04 01:30] LABS: Source Nasal/Nares
--- NOTE | 2021-02-04 01:31 | DI.VRAD_ITS ---
PROCEDURE INFORMATION: Exam: XR Chest Exam date and time: 02/04/2021 1:05 AM Age: 65 years old Clinical indication: Shortness of breath TECHNIQUE: Imaging protocol: XR of the chest. Views: 1 view. COMPARISON: CR XR CHEST 2V PA LATERAL 01/28/2021 12:15 PM FINDINGS: Tubes, catheters and devices: Cardiac leads superimposed over the chest bilaterally. Lungs: Pulmonary venous hypertension with increased interstitial markings and Gerard B lines inferolaterally within each lung. Pleural spaces: No pleural fluid collection. No pneumothorax. Heart/Mediastinum: Cardiomegaly. Bones/joints: Spinal degenerative changes. IMPRESSION: Congestive heart failure. Dictated and Authenticated by: Art Duarte MD. Ordering:SCOTTY Yanez MD
[2021-02-04 01:34] LABS: Troponin I < 0.05 ng/mL (<0.06)
[2021-02-04] MEDS: MAGNESIUM SULFATE 2 GM/50 ML BAG IVPB (02:02)
[2021-02-04] MEDS: CEFEPIME 2 GM in Normal Saline 100 ML IVPB ×2 (02:02→16:07)
[2021-02-04 02:08] LABS: COVID-19 PCR Negative (Negative)
--- NOTE | 2021-02-04 02:17 | HPE_ITS ---
Date of service: 02/04/21 Time of Service: 02:17 Assessment and Plan Assessment and plan (1) SOB (shortness of breath): Status: Acute Assessment and plan: I think the most coherent diagnosis here is pulmonary edema, unclear if cardiogenic -- no specific evidence of this at present -- or non-cardiogenic (secondary to hypoalbuminemia and aggressive fluids during recent hospitalizations); or some combination of the two. I do not think we are looking at ARDS, and patient's rapid turnaround would support this. This does not account for the leukocytosis, but I do not believe we are looking at an infectious picture; perhaps this is a leukemoid type reaction. Will trend out troponins and monitor response to diuresis (is exhibiting good warm diuresis at time of visit). I think we can hold on further abx for now. History of Present Illness History of Present Illness Chief Complaint: SOB Narrative: 65 female s/p lengthy stay at [facility] [place] for ERCP induced pancreatitis; one week [employer]EL[employer] left there AMA, represented here and then was transferred back again. Was then d/c'ed I believe 2 days prior to this admission feeling relatively well. However, does report that she put on some 40 lbs during these two stays and began feeling some SOB yesterday, and then acutely worse early this morning. EMS report diffuse wheezing and O2 sats in 70s, placed on non-rebreather. Here in ER was initially placed on BiPap with sats into 90s. W/U of note for absence of fever, white count 32K, CXR with pulmonary edema; EKG low voltage, somewhat more accentuated than baseline, neg troponin and bdside U/S showing minimal pericardial fluid and pulmonary findings c/w CHF. She has been given 20 lasix IV, is now on NC 2L with sats in mid 90s and is feeling substantially better. Blood cxx obtained and given doses of Vanco and Cefepime. Additional findings of note for BNP >07049, Creat 1.7, albumin 1.6 Denies cough or CP. Denies orthopnea and in fact requests that I let the HOB down a bit from 45 to about 30. Review of Systems All systems reviewed & are unremarkable except as noted in HPI and below [facility] Medical History Anemia Anxiety Chronic pain disorder Hx Lyrica, Gabapentin, Opioids, Tramadol. D/C'd with mixed pain symptoms. Or tho surgery helped (2019). MJ helping. Daytime somnolence Diabetic neuropathy a. Bilateral. Esophageal stricture Foot pain, bilateral Presumed neuropathy, but Hx SURG and nerve blocks .. original Dx? GERD (gastroesophageal reflux disease) History of transient ischemic attack 2005 History of umbilical hernia Hyperlipidemia Hypertension Insomnia Medical marijuana use Nonalcoholic steatohepatitis Restless leg syndrome Doubting this Dx, 05/2020 Sinus tachycardia Snoring Stressful life event affecting family Bro (had been in rehab, s/p ICU in 05/2020).. Tubular adenoma (03/20/16) Surgical History Arthroplasty of knee Cholecystectomy Endometrial Ablation H/O esophagogastroduodenoscopy (~12/25/20) Hx of colonoscopy (~12/25/20) 2020-Tubular adenomas x10 Oophrectomy, Left Repair of umbilical hernia with mesh Repair, Tendon or Muscle Achilles Family History Mother Diabetes Father Heart disease Substance abuse Brother Substance abuse Depression Heart disease Social History Smoking/Tobacco Use Status: Never Smoking risk assessment performed?: Yes Alcohol Intake: current Alcohol Intake frequency: holidays/special occasions only Drug use: Occasionally Substance use type: marijuana Details: smoked small amount evening 12/24/20 for nausea Adopted: No Caregiver/Support person: No Foster care: No Household members: none Housing: house Do you need help understanding health information?: Rarely current occupation: [employer] Sexually active: No Do you think of yourself as: straight/heterosexual Current gender identity: female Do you feel safe at home: Yes Do you feel safe in your relationship?: Yes Additional Social history: lives alone Meds Allergies and Home Medications Allergies Allergy/AdvReac Type Severity Reaction Status Date / Time metoclopramide [From Reglan] Allergy Verified 02/04/21 01:32 pollen extracts Allergy Verified 02/04/21 01:32 propoxyphene HCl AdvReac Nausea Verified 02/04/21 01:32 [From Darvon] Home Medications Medication Instructions Recorded Confirmed Type metoprolol succinate 50 mg 50 mg PO DAILY #90 tab 06/10/20 02/04/21 Rx tablet,extended release 24 hr nitroglycerin 0.4 mg sublingual 0.4 mg SL Q5M PRN #100 tab 07/08/20 02/04/21 Rx tablet polyethylene glycol 3350 17 8.5 g PO BID PRN #510 g 07/08/20 02/04/21 Rx gram/dose oral powder duloxetine 30 mg capsule,delayed 30 mg PO DAILY 30 Days #30 cap 09/16/20 1 Rx release pantoprazole 40 mg tablet,delayed 40 mg PO DAILY #90 tab-cap NS 10/23/20 1 Rx release duloxetine 20 mg capsule,delayed 10 mg PO DAILY cap 10/28/20 02/04/21 History release sprinkle neuropaway 2 tab PO TID 11/07/20 02/04/21 History blood sugar diagnostic #200 each 11/17/20 12/23/20 Rx lancets 33 gauge #200 each 11/17/20 12/23/20 Rx atorvastatin 40 mg PO HS 12/25/20 02/04/21 History gabapentin 100 mg capsule See Rx Instructions PO .COMPLEX 01/08/21 02/04/21 Rx #150 cap lidocaine-prilocaine 2.5 %-2.5 % 1 g TOPICAL ONCE PRN #30 g 01/08/21 02/04/21 Rx topical cream acetaminophen 650 mg PO Q4H PRN PRN 01/28/21 02/04/21 History calcium carbonate 500 - 1,000 mg PO Q4H PRN PRN 01/28/21 02/04/21 History mirtazapine 7.5 mg PO QHS 01/28/21 02/04/21 History Exam Narrative Exam Narrative: 125/55, 113, 36.3, 13, 97% 2L NC. HEENT atraumatic; neck supple, cannot read JVP; lungs few end exp wheezes; heart PMI not palbable, tachy/regular; abdomen soft and NT; extremities 2+ pedal edema; neuro Ox3, moves all 4s Results Labs Result diagrams: 02/04/21 00:35 02/04/21 00:35 Labs: Laboratory Results - last 24 hr 02/04/21 02/04/21 02/04/21 00:35 00:35 00:35 WBC RBC Hgb Hct MCV MCH MCHC RDW Plt Count MPV Immature Gran % Neutrophils % Lymphocytes % Monocytes % Eosinophils % Basophils % Myelocytes % Nucleated RBC % Absolute Neutrophils Absolute Lymphocytes Absolute Monocytes Absolute Eosinophils Absolute Basophils RBC Morphology Polychromasia Anisocytosis PT INR APTT VBG pH 7.26 L VBG pCO2 48 VBG pO2 66 VBG HCO3 21 L VBG Total CO2 21 L VBG O2 Saturation 88 VBG Base Excess -6 L VBG Lactate Sodium 136 Potassium 4.8 Chloride 101 Carbon Dioxide 21.8 Anion Gap 13.2 H BUN 23 H Creatinine 1.7 H Estimated GFR/1.73 m2 29.98 Glucose 235 H Calcium 8.6 Magnesium 1.5 L Total Bilirubin 0.7 Conjugated Bilirubin 0.5 H AST 52 H ALT 41 Alkaline Phosphatase 271 H Troponin I NT-Pro-B Natriuret Pep 05055 H Total Protein 7.6 Albumin 1.6 L Lipase 136 Urine Color Urine Clarity Urine pH Ur Specific [place] Urine Protein Urine Ketones Urine Blood Urine Nitrite Urine Bilirubin Urine Urobilinogen Ur Leukocyte Esterase Urine RBC Urine WBC Ur Epithelial Cells Urine Crystals Urine Bacteria Urine Casts Urine Mucus Ur Culture Indicated? Urine Glucose COVID-19 Source SARS-CoV-2 (PCR) 02/04/21 02/04/21 02/04/21 00:35 00:35 00:35 WBC 32.88 H* RBC 2.78 L Hgb 8.7 L Hct 27.6 L MCV 99.3 H MCH 31.3 MCHC 31.5 L RDW 13.1 Plt Count 349 D MPV 11.6 H Immature Gran % 2.0 Neutrophils % 81.0 Lymphocytes % 12.0 Monocytes % 5.0 Eosinophils % 0.0 Basophils % 0.0 Myelocytes % 2 Nucleated RBC % 0 Absolute Neutrophils 26.63 H Absolute Lymphocytes 3.95 H Absolute Monocytes 1.64 H Absolute Eosinophils 0.00 Absolute Basophils 0.00 RBC Morphology See below Polychromasia Present Anisocytosis 1+ PT 11.5 H INR 1.1 APTT 27.3 VBG pH VBG pCO2 VBG pO2 VBG HCO3 VBG Total CO2 VBG O2 Saturation VBG Base Excess VBG Lactate 5.5 H* Sodium Potassium Chloride Carbon Dioxide Anion Gap BUN Creatinine Estimated GFR/1.73 m2 Glucose Calcium Magnesium Total Bilirubin Conjugated Bilirubin AST ALT Alkaline Phosphatase Troponin I NT-Pro-B Natriuret Pep Total Protein Albumin Lipase Urine Color Urine Clarity Urine pH Ur Specific [place] Urine Protein Urine Ketones Urine Blood Urine Nitrite Urine Bilirubin Urine Urobilinogen Ur Leukocyte Esterase Urine RBC Urine WBC Ur Epithelial Cells Urine Crystals Urine Bacteria Urine Casts Urine Mucus Ur Culture Indicated? Urine Glucose COVID-19 Source SARS-CoV-2 (PCR) 02/04/21 02/04/21 02/04/21 00:45 00:55 01:25 WBC RBC Hgb Hct MCV MCH MCHC RDW Plt Count MPV Immature Gran % Neutrophils % Lymphocytes % Monocytes % Eosinophils % Basophils % Myelocytes % Nucleated RBC % Absolute Neutrophils Absolute Lymphocytes Absolute Monocytes Absolute Eosinophils Absolute Basophils RBC Morphology Polychromasia Anisocytosis PT INR APTT VBG pH VBG pCO2 VBG pO2 VBG HCO3 VBG Total CO2 VBG O2 Saturation VBG Base Excess VBG Lactate Sodium Potassium Chloride Carbon Dioxide Anion Gap BUN Creatinine Estimated GFR/1.73 m2 Glucose Calcium Magnesium Total Bilirubin Conjugated Bilirubin AST ALT Alkaline Phosphatase Troponin I < 0.05 NT-Pro-B Natriuret Pep Total Protein Albumin Lipase Urine Color Yellow Urine Clarity Cloudy Urine pH 5.5 Ur Specific [place] >= 1.030 H Urine Protein >=300 H Urine Ketones Negative Urine Blood Large H Urine Nitrite Negative Urine Bilirubin Negative Urine Urobilinogen 1.0 H Ur Leukocyte Esterase Negative Urine RBC 3-5 H Urine WBC 0-2 Ur Epithelial Cells Moderate Urine Crystals Moderate amorphous Urine Bacteria Rare Urine Casts Negative Urine Mucus Negative Ur Culture Indicated? C&s done as ordered Urine Glucose Negative COVID-19 Source Nasal/nares SARS-CoV-2 (PCR) Negative Last Vital Signs Temp 36.3 C L 02/04/21 00:40 Pulse 157 H 02/04/21 00:45 Resp 19 02/04/21 01:36 BP 191/101 H 02/04/21 00:40 Pulse Ox 98 02/04/21 00:45 COVID-19 Screening Have you, or household traveled for leisure in last 14 days?: No Had IN PERSON contact w/suspected or confirmed C-19 person: No
[2021-02-04] MEDS: VANCOMYCIN 1,500 MG in Normal Saline 250 ML 166.6666 MG IVPB (02:35)
--- NOTE | 2021-02-04 06:15 | RT.EKG_ITS ---
APPROVED REPORT Exam: Resting ECG Patient Location: I HR:98 bpm ECG Measurements Heart Rate 98 AXIS WY 210 P 33 QRSd 85 QRS 26 QT 360 T 150 QTc 460 Conclusion Sinus rhythm...normal P axis, V-rate 60- 99 Probable anterior infarct, age indeterminate...Q >35mS, T neg, V2-V5 Compared to study from 02/04/2021, HR has decreased
[2021-02-04 06:39] LABS: HCT 23.7 % (36.0-46.0); HGB 7.7 g/dL (11.2-15.7); MCH 31.6 pg (27.0-33.0); MCHC 32.5 % (32.0-36.0); MCV 97.1 fL (80-95); MPV 11.8 fL (8.0-11.0); Platelet Count 202 10^3/uL (130-400); RBC 2.44 10^6/uL (3.93-5.22); RDW 13.2 % (11.7-14.6); RDW-SD 46.8 fL; WBC 19.59 10^3/uL (4.4-10.8)
[2021-02-04] MEDS: Aspirin 325 MG TAB PO (06:48)
[2021-02-04 06:49] LABS: Anion Gap 7.2 mmol/L (3-11); BUN 24 mg/dL (7-18); CO2 26.8 mmol/L (21.0-32.0); CREATININE 1.5 mg/dL (0.55-1.02); Calcium 8.3 mg/dL (8.5-10.1); Chloride 104 mmol/L (98-107); Estimated GFR 34.64 (mL/min/1.73m2); Glucose 172 mg/dL (74-106); Potassium 4.6 mmol/L (3.5-5.1); Sodium 138 mmol/L (136-145)
[2021-02-04 08:23] LABS: Lactate 0.9 mmol/L (0.6-1.4)
[2021-02-04 08:59] LABS: Iron 15 ug/dL (50-170); Total Iron Binding Capacity 119 ug/dL (250-450)
[2021-02-04 09:01] LABS: LDH 221 U/L (81-234)
[2021-02-04 09:24] LABS: Procalcitonin 2.7 ng/mL
[2021-02-04 09:53] LABS: Ferritin 1395 ng/mL (8-252)
[2021-02-04] MEDS: DULoxetine 30 MG CAP PO (09:59)
[2021-02-04] MEDS: Sucralfate 1 GM TAB PO ×2 (09:59→10:55)
[2021-02-04] MEDS: Metoprolol CR 50 MG TABCR PO (10:00)
[2021-02-04] MEDS: Gabapentin 100 MG CAP 200 MG PO (10:00)
[2021-02-04] MEDS: Pantoprazole 40 MG TABCR PO (10:03)
[2021-02-04 10:21] LABS: HCT 23.9 % (36.0-46.0); HGB 7.7 g/dL (11.2-15.7)
[2021-02-04] MEDS: Aspirin E.C. 81 MG TABEC PO (10:22)
[2021-02-04] MEDS: Acetaminophen 325 MG TAB 650 MG PO ×2 (10:55→13:00)
--- NOTE | 2021-02-04 10:55 | INITIAL_ITS ---
- If Service Date Differs Date of service: 02/04/21 Time of Service: 10:55 Care Management Initial Assess REASON FOR HOSPITALIZATION:: Shortness of Breath PAST MEDICAL HISTORY/PAST SURGICAL HISTORY:: Medical History . Anemia. Anxiety. Chronic pain disorder. Hx Lyrica, Gabapentin, Opioids, Tramadol. D/C'd with mixed pain symptoms. Ortho surgery helped (2019). MJ helping. Daytime somnolence. Diabetic neuropathy. a. Bilateral. Esophageal stricture. Foot pain, bilateral. Presumed neuropathy, but Hx SURG and nerve blocks .. original Dx? GERD (gastroesophageal reflux disease). History of transient ischemic attack. 2004. History of umbilical hernia. Hyperlipidemia. Hypertension. Insomnia. Medical marijuana use. Nonalcoholic steatohepatitis. Restless leg syndrome. Doubting this Dx, 05/2020. Sinus tachycardia. Snoring. Stressful life event affecting family. Bro (had been in rehab, s/p ICU in 05/2020).. Tubular adenoma (03/20/16). Surgical History . Arthroplasty of knee. Cholecystectomy. Endometrial Ablation. H/O esophagogastroduodenoscopy (~12/25/20). Hx of colonoscopy (~12/25/20). 2020- Tubular adenomas x10. Oophrectomy, Left. Repair of umbilical hernia. with mesh. Repair, Tendon or Muscle. Achilles PREVIOUS FUNCTIONAL STATUS/SOCIAL/FAMILY SUPPORTS:: Patient is a 65 year old female who resides in [facility]. Patient has two daughters one locally and one in [place]. 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 Toyin has been [place] [facility] [place] in the past month. She has become weak and currently requires the use of a cane and walker at home. CURRENT FUNCTIONAL STATUS:: Toyin was lying in bed in the ICU being closely monitored when MARYSOL met with her. She was awake and alert and agreeable to answer questions. MARYSOL discussed the fact that plans are underway to have her transferred to [facility]. On ultrasound and CT scan, there is a large fluid collection in the RUQ of her abdomen suspicious for an abscess. In addition, she has pulmonary edema and elevated troponins. Toyin indicated that she understood the plan and was agreeable to the transfer. MARYSOL also contacted Linda, her daughter, and updated her with the above information about the probable transfer. ADVANCE DIRECTIVES:: None on file Has patient been provided with info about the portal/API?: Yes Did the patient sign up for the portal?: No CODE STATUS:: Full Code INSURANCE COVERAGE / FINANCIAL ISSUES:: Commercial Medicare replacement plan - [employer]. [facility] CURRENT HOME/COMMUNITY SERVICES/EQUIPMENT:: Toyin has a cane and walker. Home health had been set up but services were never initiated as Toyin was admitted to [facility] within a day of discharge from [facility]. PRIMARY CARE PHYSICIAN:: Asia Gil POTENTIAL DISCHARGE NEEDS:: Toyin may require [place] stay [place] a [place] [facility] [place] for [place] before returning home [place] [facility]. Follow up with PCP and discharge plan of care TRANSPORTATION:: via ambulance PLAN:: Toyin will be transferred to [facility] later today when a bed becomes available. She will transport via ambulance coordinated by nursing mold making supervisor. CM will continue to support Toyin and her family.
--- NOTE | 2021-02-04 11:24 | PGE_ITS ---
Date of Service Date of service: 02/04/21 Time of Service: 11:24 Assessment and Plan Assessment and plan (1) Peripancreatic abscess: Status: Acute Assessment and plan: Ultrasound the abdomen suggest a complex fluid collection in Morison's pouch. In the setting of an elevated blood lactate and a leukocytosis of 32,000 and an elevated procalcitonin level the suggest that this is an abscess. CT scan of the abdomen pelvis has been ordered and performed results are pending. Patient was given cefepime and vancomycin last night I reordered that this morning but have since added meropenem to broaden the coverage to improve for anaerobic coverage. Surgical consult is been requested with Dr. Anderson who is evaluated the patient and will review the CT findings but recommends transfer back to [facility] where her complete team of GI surgery and gastroenterology can manage her. Patient will be made n.p.o. in the event that she needs surgical intervention. Patient's acute pulmonary edema will be treated with noninvasive positive pressure ventilation and furosemide drip. Serial troponins will be monitored. In light of her anemia patient was not heparinized. I think her elevated troponin is a type II NSTEMI due to demand ischemia. (2) Acute pulmonary edema: Status: Acute Assessment and plan: Supportive care with BiPAP along with aggressive IV diuresis. (3) Elevated troponin I level: Status: Acute Assessment and plan: I think this is a type II NSTEMI due to demand ischemia precipitated by her fluid overload and pulmonary edema and ongoing biliary infection. I think she likely had cholangitis from retained stone and now has an abscess. Repeat EKG this morning definitely showed some new T wave inversions in limb leads I and aVL as well as V4 through V6 that were not present last night. Repeat troponin has plateaued at 0.20 which we will continue to trend out. Echocardiogram was performed this morning and results are pending at this time. (4) GETACHEW (acute kidney injury): Status: Acute Assessment and plan: Creatinine at the time of discharge from [facility] was 1.2. 1.5. (5) Anasarca: Status: Acute Assessment and plan: Diuretics as above (6) Anemia: Status: Acute Qualifiers: Anemia type: iron deficiency Iron deficiency anemia type: chronic blood loss Qualified Code(s): D50.0 - Iron deficiency anemia secondary to blood loss (chronic) (7) Non-insulin dependent type 2 diabetes mellitus: Status: Chronic (8) Nonalcoholic steatohepatitis: Status: Chronic Subjective Subjective Interval history since last seen: 65-year-old female with history of diabetes mellitus, Garcia, cirrhosis, chronic kidney disease stage III/a 2-3, GERD, previous laparoscopic cholecystectomy, TIA who has had a complicated cou rse at [facility] starting with a failed ERCP in an attempt to remove a common bile duct stone causing pancreatitis. She was hospitalized from January 17, 2021 through January 26, 2021. Patient was treated with IV fluids and pain management treatment and reportedly a CT scan of the abdomen pelvis with contrast was unrevealing. Reportedly her acute pancreatitis had resolved and her abdominal pain had resolved prior to discharge and although her white blood cell count initially had been trending downward on the day of discharge it increased to 18,000. Although the patient was encouraged to stay patient left the hospital against advice and was discharged home on January 26, 2021. She subsequently re-presented to [facility] emergency department January 28, 2021 with complaints of generalized feeling of being unwell along with a 21 pound weight gain associated with recent IV fluid hydration for pancreatitis but at that time was not having any chest pain or dyspnea. She was evaluated in the emergency department department and determined to be with evidence of acute cholangitis and was started on Zosyn. She was transferred back to [facility] at that time. She was hospitalized from January 28, 2021 through February 03, 2021. Per [facility] is discharge diagnosis she was found to have elevated lipase and CT scan demonstrated an interval loculation of an enlarged thick-walled collection of fluid and pancreatitis. WBC count on admission at that time was 20,000 and lipase was 1300. She was initially treated with Zosyn which was later discontinued as they were attributing the leukocytosis due to inflammation from her pancreatitis. Her leukocytosis never resolved but did decline down to 15,000 at discharge as of February 03, 2021. Hemoglobin on discha rge was 7.9 g. 4 days prior to discharge lipase was down to 524. And her creatinine at discharge was down to 1.24. MRCP had been performed January 29, 2021 showed 2 small intraluminal signal void seen in the common bile duct without biliary ductal dilatation possibly due to retained calculi. Pancreas showed mild diffuse edema but no pancreatic ductal dilatation. However there is a large peripherally enhancing partially loculated fluid collections around the pancreatic head and uncinate process possible pseudocyst however cannot exclude an abscess. CT scan of the abdomen pelvis from that same date of January 29, 2021 showed increased peripancreatic and periduodenal tracking into the Morison's pouch in the pelvis. Interval loculation enlarged 5.5 x 5.5 x 4.1 cm thick- walled collection anteriorly hepatic flexure differential diagnosis included pseudocyst versus walled off necrosis versus abscess. Thickening of the duodenum and unchanged gallstone in the cystic duct remnant. According to [facility] discharge summary GI consultation indicated there was no role for repeat ERCP but recommend supportive care. General surgery felt surgical intervention would be more appropriate after inflammation has resolved with expected surgery in 6 to 12 weeks. Patient's diet was advanced and she was discharged home February 03, 2021. Patient presented to [facility] emergency department last night with severe shortness of breath beginning yesterday evening after supper not associated with any chest pain or chest pressure. On admission last night she had no abdominal pain no fever rigors or urinary symptoms and no cough or sputum production. Reportedly her oxygen saturation was in the 70% range per EMS on room air. She was noted to have audible wheezing was placed on a nonrebreather mask and given a DuoNeb treatment in route to the emergency department. On arrival to ER she was only able to speak 2 word sentences was tachypneic. She had diffuse bilateral wheezing and diminished breath sounds at the bases along with 2+ pedal edema. Bedside [id number] ultrasound was performed by the ER attending demonstrated bilateral diffuse B-lines without pericardial effusion. His presumptive alexandrea gnosis was acute pulmonary edema. She was placed on BiPAP mask and given furosemide 20 mg IV push and placed on BIPAP. Further work-up in the emergency department showed a white count of 32,000 and hemoglobin 8.7 g hematocrit 27% platelet count 3 49,000. Coagulation studies were normal. BUN and creatinine were elevated 24 1.5. Her LFTs were abnormal with an elevated conjugated bilirubin of 0.5 AST of 52 alkaline phosphatase 271 and a proBNP of 12,400. Albumin is low at 1.6 and lipase was normal at 136. Initial troponin is less than 0.05. However during the night her troponin swapnil to 0.20 as of 5 AM this morning and repeat level at 10 AM is still 0.20. Initial EKG showed no acute ischemic changes but subsequent EKG this morning shows some lateral ST-T wave abnormalities in 1 aVL V4 through V6 with T wave inversions consistent with ischemia. There is no ST elevation. Patient remains free of any chest pain but is complaining of worsening dyspnea and right upper quadrant abdominal pain. Stat echo has been ordered results are pending. Stat ultrasound the abdomen was performed and suggest complex peritoneal effusion around Morison's pouch suggestive of blood or pus. Patient was treated last night with 2 g of cefepime and given Vancomycin 1.5 gm after blood cultures were obtained. This a.m. her WBC are down to 19,000. Stat CT abdomen and pelvis has been ordered and surgical consult w/ Dr. Brittny Anderson has been obtained. She presented to the ICU to evaluate the patient. Exam Narrative Exam Narrative: Obese female who is mildly tachypneic with SPO2 of 88% on room air. She has since been put back on BiPAP 12 cm / 5 cm Lungs with diffuse bilateral rales in all foster. Hearts regular but tachycardic no appreciable murmur Abdomen is obese soft with right upper quadrant abdominal tenderness with some guarding. Bowel sounds are hypoactive. No palpable masses or palpated. No bruits. Lower extremities with 3+ pitting edema From just below her knees down to her ankles. No peripheral cyanosis Neuro exam grossly intact no focal deficits Rectal exam was performed w/ supervision/assistance of nurse, Gloria. Patient has normal rectal tone, light brown stool in rectal vault which was heme negative. Objective Last Vital Signs Temp 36.5 C 02/04/21 09:11 Pulse 109 H 02/04/21 10:20 Resp 16 02/04/21 10:20 BP 138/69 02/04/21 10:20 Pulse Ox 97 02/04/21 10:20 Laboratory Results - last 24 hr 02/04/21 02/04/21 02/04/21 00:35 00:35 00:35 WBC RBC Hgb Hct MCV MCH MCHC RDW Plt Count MPV Immature Gran % Neutrophils % Lymphocytes % Monocytes % Eosinophils % Basophils % Myelocytes % Nucleated RBC % Absolute Neutrophils Absolute Lymphocytes Absolute Monocytes Absolute Eosinophils Absolute Basophils RBC Morphology Polychromasia Anisocytosis PT INR APTT VBG pH 7.26 L VBG pCO2 48 VBG pO2 66 VBG HCO3 21 L VBG Total CO2 21 L VBG O2 Saturation 88 VBG Base Excess -6 L VBG Lactate Sodium 136 Potassium 4.8 Chloride 101 Carbon Dioxide 21.8 Anion Gap 13.2 H BUN 23 H Creatinine 1.7 H Estimated GFR/1.73 m2 29.98 Glucose 235 H Calcium 8.6 Magnesium 1.5 L Iron TIBC Ferritin Total Bilirubin 0.7 Conjugated Bilirubin 0.5 H AST 52 H ALT 41 Alkaline Phosphatase 271 H Lactate Dehydrogenase Troponin I NT-Pro-B Natriuret Pep 40563 H Total Protein 7.6 Albumin 1.6 L Lipase 136 Procalcitonin Urine Color Urine Clarity Urine pH Ur Specific [place] Urine Protein Urine Ketones Urine Blood Urine Nitrite Urine Bilirubin Urine Urobilinogen Ur Leukocyte Esterase Urine RBC Urine WBC Ur Epithelial Cells Urine Crystals Urine Bacteria Urine Casts Urine Mucus Ur Culture Indicated? Urine Glucose COVID-19 Source SARS-CoV-2 (PCR) Patient ABO/Rh Antibody Screen 02/04/21 02/04/21 02/04/21 00:35 00:35 00:35 WBC 32.88 H* RBC 2.78 L Hgb 8.7 L Hct 27.6 L MCV 99.3 H MCH 31.3 MCHC 31.5 L RDW 13.1 Plt Count 349 D MPV 11.6 H Immature Gran % 2.0 Neutrophils % 81.0 Lymphocytes % 12.0 Monocytes % 5.0 Eosinophils % 0.0 Basophils % 0.0 Myelocytes % 2 Nucleated RBC % 0 Absolute Neutrophils 26.63 H Absolute Lymphocytes 3.95 H Absolute Monocytes 1.64 H Absolute Eosinophils 0.00 Absolute Basophils 0.00 RBC Morphology See below Polychromasia Present Anisocytosis 1+ PT 11.5 H INR 1.1 APTT 27.3 VBG pH VBG pCO2 VBG pO2 VBG HCO3 VBG Total CO2 VBG O2 Saturation VBG Base Excess VBG Lactate 5.5 H* Sodium Potassium Chloride Carbon Dioxide Anion Gap BUN Creatinine Estimated GFR/1.73 m2 Glucose Calcium Magnesium Iron TIBC Ferritin Total Bilirubin Conjugated Bilirubin AST ALT Alkaline Phosphatase Lactate Dehydrogenase Troponin I NT-Pro-B Natriuret Pep Total Protein Albumin Lipase Procalcitonin Urine Color Urine Clarity Urine pH Ur Specific [place] Urine Protein Urine Ketones Urine Blood Urine Nitrite Urine Bilirubin Urine Urobilinogen Ur Leukocyte Esterase Urine RBC Urine WBC Ur Epithelial Cells Urine Crystals Urine Bacteria Urine Casts Urine Mucus Ur Culture Indicated? Urine Glucose COVID-19 Source SARS-CoV-2 (PCR) Patient ABO/Rh Antibody Screen 02/04/21 02/04/21 02/04/21 00:45 00:55 01:25 WBC RBC Hgb Hct MCV MCH MCHC RDW Plt Count MPV Immature Gran % Neutrophils % Lymphocytes % Monocytes % Eosinophils % Basophils % Myelocytes % Nucleated RBC % Absolute Neutrophils Absolute Lymphocytes Absolute Monocytes Absolute Eosinophils Absolute Basophils RBC Morphology Polychromasia Anisocytosis PT INR APTT VBG pH VBG pCO2 VBG pO2 VBG HCO3 VBG Total CO2 VBG O2 Saturation VBG Base Excess VBG Lactate Sodium Potassium Chloride Carbon Dioxide Anion Gap BUN Creatinine Estimated GFR/1.73 m2 Glucose Calcium Magnesium Iron TIBC Ferritin Total Bilirubin Conjugated Bilirubin AST ALT Alkaline Phosphatase Lactate Dehydrogenase Troponin I < 0.05 NT-Pro-B Natriuret Pep Total Protein Albumin Lipase Procalcitonin Urine Color Yellow Urine Clarity Cloudy Urine pH 5.5 Ur Specific [place] >= 1.030 H Urine Protein >=300 H Urine Ketones Negative Urine Blood Large H Urine Nitrite Negative Urine Bilirubin Negative Urine Urobilinogen 1.0 H Ur Leukocyte Esterase Negative Urine RBC 3-5 H Urine WBC 0-2 Ur Epithelial Cells Moderate Urine Crystals Moderate amorphous Urine Bacteria Rare Urine Casts Negative Urine Mucus Negative Ur Culture Indicated? C&s done as ordered Urine Glucose Negative COVID-19 Source Nasal/nares SARS-CoV-2 (PCR) Negative Patient ABO/Rh Antibody Screen 02/04/21 02/04/21 02/04/21 04:16 05:15 06:20 WBC RBC Hgb Hct MCV MCH MCHC RDW Plt Count MPV Immature Gran % Neutrophils % Lymphocytes % Monocytes % Eosinophils % Basophils % Myelocytes % Nucleated RBC % Absolute Neutrophils Absolute Lymphocytes Absolute Monocytes Absolute Eosinophils Absolute Basophils RBC Morphology Polychromasia Anisocytosis PT INR APTT VBG pH VBG pCO2 VBG pO2 VBG HCO3 VBG Total CO2 VBG O2 Saturation VBG Base Excess VBG Lactate Sodium 138 Potassium 4.6 Chloride 104 Carbon Dioxide 26.8 Anion Gap 7.2 BUN 24 H Creatinine 1.5 H Estimated GFR/1.73 m2 34.64 Glucose 172 H Calcium 8.3 L Magnesium Iron TIBC Ferritin 1395 H Total Bilirubin Conjugated Bilirubin AST ALT Alkaline Phosphatase Lactate Dehydrogenase 221 Troponin I Cancelled 0.20 H* NT-Pro-B Natriuret Pep Total Protein Albumin Lipase Procalcitonin Urine Color Urine Clarity Urine pH Ur Specific [place] Urine Protein Urine Ketones Urine Blood Urine Nitrite Urine Bilirubin Urine Urobilinogen Ur Leukocyte Esterase Urine RBC Urine WBC Ur Epithelial Cells Urine Crystals Urine Bacteria Urine Casts Urine Mucus Ur Culture Indicated? Urine Glucose COVID-19 Source SARS-CoV-2 (PCR) Patient ABO/Rh Antibody Screen 02/04/21 02/04/21 02/04/21 06:20 06:20 06:20 WBC 19.59 H D RBC 2.44 L Hgb 7.7 L Hct 23.7 L MCV 97.1 H MCH 31.6 MCHC 32.5 RDW 13.2 Plt Count 202 D MPV 11.8 H Immature Gran % Neutrophils % Lymphocytes % Monocytes % Eosinophils % Basophils % Myelocytes % Nucleated RBC % Absolute Neutrophils Absolute Lymphocytes Absolute Monocytes Absolute Eosinophils Absolute Basophils RBC Morphology Polychromasia Anisocytosis PT INR APTT VBG pH VBG pCO2 VBG pO2 VBG HCO3 VBG Total CO2 VBG O2 Saturation VBG Base Excess VBG Lactate Sodium Potassium Chloride Carbon Dioxide Anion Gap BUN Creatinine Estimated GFR/1.73 m2 Glucose Calcium Magnesium Iron TIBC Ferritin Total Bilirubin Conjugated Bilirubin AST ALT Alkaline Phosphatase Lactate Dehydrogenase Troponin I NT-Pro-B Natriuret Pep Total Protein Albumin Lipase Procalcitonin 2.7 Urine Color Urine Clarity Urine pH Ur Specific [place] Urine Protein Urine Ketones Urine Blood Urine Nitrite Urine Bilirubin Urine Urobilinogen Ur Leukocyte Esterase Urine RBC Urine WBC Ur Epithelial Cells Urine Crystals Urine Bacteria Urine Casts Urine Mucus Ur Culture Indicated? Urine Glucose COVID-19 Source SARS-CoV-2 (PCR) Patient ABO/Rh O Positive Antibody Screen Negative 02/04/21 02/04/21 02/04/21 06:20 08:10 10:15 WBC RBC Hgb Hct MCV MCH MCHC RDW Plt Count MPV Immature Gran % Neutrophils % Lymphocytes % Monocytes % Eosinophils % Basophils % Myelocytes % Nucleated RBC % Absolute Neutrophils Absolute Lymphocytes Absolute Monocytes Absolute Eosinophils Absolute Basophils RBC Morphology Polychromasia Anisocytosis PT INR APTT VBG pH VBG pCO2 VBG pO2 VBG HCO3 VBG Total CO2 VBG O2 Saturation VBG Base Excess VBG Lactate 0.9 Sodium Potassium Chloride Carbon Dioxide Anion Gap BUN Creatinine Estimated GFR/1.73 m2 Glucose Calcium Magnesium Iron 15 L TIBC 119 L Ferritin Total Bilirubin Conjugated Bilirubin AST ALT Alkaline Phosphatase Lactate Dehydrogenase Troponin I 0.20 H* NT-Pro-B Natriuret Pep Total Protein Albumin Lipase Procalcitonin Urine Color Urine Clarity Urine pH Ur Specific [place] Urine Protein Urine Ketones Urine Blood Urine Nitrite Urine Bilirubin Urine Urobilinogen Ur Leukocyte Esterase Urine RBC Urine WBC Ur Epithelial Cells Urine Crystals Urine Bacteria Urine Casts Urine Mucus Ur Culture Indicated? Urine Glucose COVID-19 Source SARS-CoV-2 (PCR) Patient ABO/Rh Antibody Screen 02/04/21 10:15 WBC RBC Hgb 7.7 L Hct 23.9 L MCV MCH MCHC RDW Plt Count MPV Immature Gran % Neutrophils % Lymphocytes % Monocytes % Eosinophils % Basophils % Myelocytes % Nucleated RBC % Absolute Neutrophils Absolute Lymphocytes Absolute Monocytes Absolute Eosinophils Absolute Basophils RBC Morphology Polychromasia Anisocytosis PT INR APTT VBG pH VBG pCO2 VBG pO2 VBG HCO3 VBG Total CO2 VBG O2 Saturation VBG Base Excess VBG Lactate Sodium Potassium Chloride Carbon Dioxide Anion Gap BUN Creatinine Estimated GFR/1.73 m2 Glucose Calcium Magnesium Iron TIBC Ferritin Total Bilirubin Conjugated Bilirubin AST ALT Alkaline Phosphatase Lactate Dehydrogenase Troponin I NT-Pro-B Natriuret Pep Total Protein Albumin Lipase Procalcitonin Urine Color Urine Clarity Urine pH Ur Specific [place] Urine Protein Urine Ketones Urine Blood Urine Nitrite Urine Bilirubin Urine Urobilinogen Ur Leukocyte Esterase Urine RBC Urine WBC Ur Epithelial Cells Urine Crystals Urine Bacteria Urine Casts Urine Mucus Ur Culture Indicated? Urine Glucose COVID-19 Source SARS-CoV-2 (PCR) Patient ABO/Rh Antibody Screen
[2021-02-04] MEDS: Gabapentin 100 MG CAP PO (11:50)
[2021-02-04] MEDS: Furosemide 100 MG/10 ML VIAL IVP (11:50)
[2021-02-04] MEDS: Normal Saline Flush 10 ML SYR IVP ×2 (11:51→16:08)
[2021-02-04 12:34] LABS: Lipase 122 U/L (73-393)
[2021-02-04] MEDS: Omnipaque 350 MG/ML 100 ML BTL IJ (12:55)
[2021-02-04] MEDS: Normal Saline - Diluent 50 ML VIAL IV (12:58)
[2021-02-04] MEDS: diphenhydrAMINE 25 MG CAP PO (13:00)
[2021-02-04] MEDS: MEROPENEM 1 GM in Normal Saline 100 ML IVPB (13:01)
--- NOTE | 2021-02-04 13:32 | PHA.REVIEW ---
Pharmacy Admission Review - Admission Clinical Review (Last Updated 02/04/21 @ 12:51 by Zeke Marie) Anemia (Acute) Elevated troponin I level (Acute) Peripancreatic abscess (Acute) SOB (shortness of breath) (Acute) Anasarca (Acute) GETACHEW (acute kidney injury) (Acute) Acute pulmonary edema (Acute) Hypoxemia (Acute) Leukocytosis (Acute) metoclopramide [From Reglan] Allergy (Verified 02/04/21 01:32) pollen extracts Allergy (Verified 02/04/21 01:32) propoxyphene HCl [From Darvon] Adverse Reaction (Verified 02/04/21 01:32) Nausea Height 5 ft 3 in Weight 95.5 kg - Renal Dosing Renal Dosing: BUN 24 mg/dL (7-18) H 02/04/21 06:20 Creatinine 1.5 mg/dL (0.55-1.02) H 02/04/21 06:20 Medications needing adjustments: Intervened (Crcl ~40 mL/min using adjusted body weight. Cefepime and meropenem doses are renally adjusted.) - Anticoagulation Anticoagulation: Hgb 7.7 g/dL (11.2-15.7) L 02/04/21 10:15 Hct 23.9 % (36.0-46.0) L 02/04/21 10:15 Plt Count 202 10^3/uL (130-400) D 02/04/21 06:20 INR 1.1 (0.9-1.1) 02/04/21 00:35 Creatinine 1.5 mg/dL (0.55-1.02) H 02/04/21 06:20 DVT Prohphylaxis: Reviewed (pt is anemic, transfusion ordered) - Opiate Usage Evaluate Pain Scale/Pains Meds: Reviewed Scheduled Bowel Reg ordered if on Opiates?: No (has prn med ordered) - Relevant Labs Sodium 138 mmol/L (136-145) 02/04/21 06:20 Potassium 4.6 mmol/L (3.5-5.1) 02/04/21 06:20 Chloride 104 mmol/L (98-107) 02/04/21 06:20 Magnesium 1.5 mg/dL (1.8-2.4) L 02/04/21 00:35 Electrolytes, C-Reactive P, ESR: Reviewed (IV mag replacement given) - DM Control DM Control: Glucose 172 mg/dL (74-106) H 02/04/21 06:20 Insulin Dosing: Intervened (No meds ordered, most recent A1c on file 7.0, type-2 diabetes listed on history& problems list. Will mention to provider.) - Heart Failure/CA Heart Failure/CA: Troponin I 0.20 ng/mL (<0.06) H* 02/04/21 10:15 NT-Pro-B Natriuret Pep 97322 pg/mL (<300) H 02/04/21 00:35 EF%, ANNETTE's, B-Blockers, Diuretics: Reviewed (Provider thinks elevated troponins likely due to demand ischemia.) - BP Control BP Control: Blood Pressure 147/72 Blood Pressure 147/72 Blood Pressure 147/72 Blood Pressure 140/62 Blood Pressure 138/69 Blood Pressure 134/65 Blood Pressure 128/68 If elevated: Reviewed (BP has been up and down since admission.) - Qtc Review If Elevated: N/A (QTc 460 from EKG today) - IV to PO Switch IV Medications: Reviewed - Home Meds Home Med List reviewed: Intervened (Patient stated only taking duloxetine 30 mg daily (additional home med listed for pt to titrate in 5 mg increments but med only comes in 20, 30, or 60 mg caps). Couple BP meds picked up from pharmacy recently but were discontinued from med list, will look into these.) Relevent Home Meds Not ordered & why?: calcium carbonate (PRN) - Current meds Current Medication Order Review: Intervened (Discontinued DI meds (already given), adjusted the timing of pantoprazole based on medical staff coordinator time policy, changed dosage form of miralax from bottle to packets.) - Comments Comments/Follow Ups: Watch BP, BG, SCr, H/H, mag and for med changes (renal dose adjustments, need of additional BM meds) Antibiotic Activity - Pharmacy Antibiotic Review Pharmacy Antibiotic Activity: Abx regimen adjustment (Vanco, cefepime, and meropenem ordered (day 1) for peripancreatic abscess. Blood and urine cultures pending.)
--- NOTE | 2021-02-04 13:59 | W.SURGCON ---
Date of service: 02/04/21 Time of Service: 13:59 Assessment and Plan Assessment and plan (1) S/P cardiac cath: Status: Acute (2) Anemia: Status: Chronic Qualifiers: Anemia type: iron deficiency Iron deficiency anemia type: chronic blood loss Qualified Code(s): D50.0 - Iron deficiency anemia secondary to blood loss (chronic) (3) Elevated troponin I level: Status: Acute (4) Peripancreatic abscess: Status: Acute Assessment and plan: Given her multiple medical problems and degree of illness I think she should be transferred emergently back to [facility]. She has acute respiratory failure most likely this is due to fluid overload partially from cardiac and partially from acute kidney injury. She is actively being diuresed. She has anemia iron deficient anemia and should be aggressively transfused. The elevated troponins could be from demand ischemia from the increased work on her heart from pulmonary edema and a combination of the anemia. Most concerning is a loculated fluid collection around the pancreatic head/bile ducts/liver. I am very concerned that this is an abscess. She definitely needs to be evaluated by IR for drainage. She is on currently on broad-spectrum antibiotics. She needs to be followed by cardiology pulmonary and nephrology . And continued investigation into her bile ducts to make sure that she does not have an ongoing bile leak from the injury. 2 hours is spent with critical care time in this patient today. Reviewing all her MRIs HIDA scans and CTs both from our institution [facility] reviewing all her lab work from our institution and [facility] including CBC troponins, and iron studies. Reviewing all her consulted notes from [facility] and conferring with Dr. Llanos, radiology. 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 (13) Acute kidney injury superimposed on chronic kidney disease: Status: Resolved (14) Non-insulin dependent type 2 diabetes mellitus: Status: Chronic (15) Iron deficiency: Status: Acute (16) Acute hyperactive delirium due to another medical condition: Status: Acute (17) COVID-19 ruled out: Status: Acute (18) Obstructive sleep apnea (adult) (pediatric): Status: Acute (19) Neuropathy: Status: Acute (20) Chronic pain disorder: Status: Chronic (21) History of transient ischemic attack: Status: Chronic (22) Diabetic neuropathy: Status: Chronic Qualifiers: Diabetes mellitus type: type 2 Diabetes mellitus complication detail: diabetic polyneuropathy Qualified Code(s): E11.42 - Type 2 diabetes mellitus with diabetic polyneuropathy (23) Hyperlipidemia: Status: Acute (24) GERD (gastroesophageal reflux disease): Status: Chronic (25) Hypertension: Status: Chronic Qualifiers: Hypertension type: essential hypertension Qualified Code(s): I10 - Essential (primary) hypertension (26) Nonalcoholic steatohepatitis: Status: Chronic History of Present Illness Narrative: Patient was seen urgently at the [facility]. Patient has a complicated medical history. She was in [facility] for 10 days. Apparently she left AMA. Patient has a remote history of a lap ronnie which I think is back in 2015. She has unfortunately developed a common bile duct stone it was arranged for outpatient elective ERCP and stone extraction on by Dr. Sawant. She been having problems with right upper quadrant pain for some time. She underwent ERCP for stone removal01/17.They were unsuccessful in removing the stone. Sphincterotomy was done. Then she developed pancreatitis. This continued to wax and wane. On 419 or 420 she was discharged home. She came into the ER at [facility] on 421. She was transferred back to [facility]. I did review her scans from 01/29. She had a CT/MRI/HIDA scan. The MRI on 01/29 did show severe pancreatitis and increasing fluid collection around the head of the pancreas. HIDA scan did not show a leak in the bile ducts or the cystic duct remnant. Her white count was going up. At some point she left AMA, because she was tired of being in the hospital and did not feel they were doing anything for her. On 4026 she returned to our ER with complaints of shortness of breath and significant fluid overload. She is found to be mildly anemic with a hemoglobin in the sevens., GETACHEW, respiratory failure/fluid overload. Patient also has elevated troponins. In is not known if this is truly an infarct or just demand ischemia. She does have a history of hypertension/diabetes mellitus/hyperlipidemia and coronary artery disease. She has had a CABG and stent in the last 30 days. At the time of the exam she is requiring BiPAP and desaturates quite readily when she is taken off it. She is alert and orientated. She is being aggressively diuresed and is on a Lasix drip. She is making urine. She does not feel her breathing is any better. She has pretty significant right upper quadrant pain. I would definitely call this diffuse peritonitis her with rebound and guarding. She has minimal bowel sounds. Her blood pressure is stable. Heart rate is in the 90s. She is maintaining her sats at 92% on 10 L and on BiPAP. She has not run a temperature. I did review all her recent labs including CBC/comp/lipase and INR from [facility]. I did review her MRI and her HIDA scan. She was taken down for a emergent CT. Her creatinine is 1.7 and her GFR is 43. I did discuss this with Dr. Putnam and then. I do feel we need to get a CT with IV contrast her hemoglobin today is 7.4 but her last hemoglobin at [facility] was 7.7 there is concern for bleeding versus infection versus bile leak versus recurrent pancreatitis. I do feel that the IV contrast is warranted despite the increase of GETACHEW to get a accurate diagnosis on her she did go down for emergent CT. I did personally review the films with Dr. Shaffer. At this point it looks like she has a large fluid collection around the bile duct/head of the pancreas and around the liver and in the right gutter traveling down into the pelvis. Part of this appears to be loculated and have a rind and appears to be an abscess. Other fluid collections appear to be free fluid. At this point I have concern that this is an abscess. Whether this is viral or just inflammatory fluid from her pancreatitis is undetermined. She did have a 36,000 count when she came in. On broad-spectrum antibiotics. Currently she is critical but hemodynamically stable. I do feel she is septic and has peritonitis and I do feel that this collection needs a drain. She is not a surgical candidate. She would be much better served with a IR drainage procedure. She needs to be in a ICU with pulmonary available. I do think she should be urgently transferred to [facility], prior to her becoming unstable. I agree with Dr. Putnam and current treatment plan he is in the process of transferring her to [facility] for continued care. Consults Consult date: 02/04/21 Review of Systems Unobtainable due to endotracheal tube (BiPAP) [facility] Medical History Anemia Anxiety Chronic pain disorder Hx Lyrica, Gabapentin, Opioids, Tramadol. D/C'd with mixed pain symptoms. Ortho surgery helped (2019). MJ helping. Daytime somnolence Diabetic neuropathy a. Bilateral. Esophageal stricture Foot pain, bilateral Presumed neuropathy, but Hx SURG and nerve blocks .. original Dx? GERD (gastroesophageal reflux disease) History of transient ischemic attack 2004 History of umbilical hernia Hyperlipidemia Hypertension Insomnia Medical marijuana use Nonalcoholic steatohepatitis Restless leg syndrome Doubting this Dx, 05/2020 Sinus tachycardia Snoring Stressful life event affecting family Bro (had been in rehab, s/p ICU in 05/2020).. Tubular adenoma (03/20/16) Surgical History Arthroplasty of knee Cholecystectomy Endometrial Ablation H/O esophagogastroduodenoscopy (~12/25/20) Hx of colonoscopy (~12/25/20) 2020-Tubular adenomas x10 Oophrectomy, Left Repair of umbilical hernia with mesh Repair, Tendon or Muscle Achilles Family History Mother Diabetes Father Heart disease Substance abuse Brother Substance abuse Depression Heart disease Social History Smoking/Tobacco Use Status: Never Smoking risk assessment performed?: Yes Alcohol Intake: current Alcohol Intake frequency: holidays/special occasions only Drug use: Occasionally Substance use type: marijuana Details: smoked small amount evening 12/24/20 for nausea Adopted: No Caregiver/Support person: No Foster care: No Household members: none Housing: house Do you need help understanding health information?: Rarely current occupation: [employer] Sexually active: No Do you think of yourself as: straight/heterosexual Current gender identity: female Do you feel safe at home: Yes Do you feel safe in your relationship?: Yes Additional Social history: lives alone Exam [facility] Other: She has no jaundice. Her con gel type all membranes appear pale. She does have a BiPAP mask on which she cannot remove because of acute desaturation. She is awake and nods appropriately to yes and no asked question. She winces and grimaces with abdominal palpation. Resp Effort & Inspection: labored Auscultation: wheezes Other: Patient is currently on 10 L of BiPAP and satting around 92%. Her Covid still pending Cardio Rate: regular rate Rhythm: regular rhythm GI Inspection: distended and obesity Palpation: firm, guarding, tender and No ascites Auscultation: hypoactive bowel sounds Extrem General: pedal edema Results Last Vital Signs Temp 36.9 C 02/04/21 13:56 Pulse 92 H 02/04/21 13:57 Resp 14 02/04/21 13:57 BP 116/64 02/04/21 13:57 Pulse Ox 95 02/04/21 13:57 Labs Result diagrams: 02/04/21 17:55 02/04/21 06:20 Labs: Laboratory Results - last 24 hr 02/04/21 02/04/21 02/04/21 00:35 00:35 00:35 WBC RBC Hgb Hct MCV MCH MCHC RDW Plt Count MPV Immature Gran % Neutrophils % Lymphocytes % Monocytes % Eosinophils % Basophils % Myelocytes % Nucleated RBC % Absolute Neutrophils Absolute Lymphocytes Absolute Monocytes Absolute Eosinophils Absolute Basophils RBC Morphology Polychromasia Anisocytosis PT INR APTT VBG pH 7.26 L VBG pCO2 48 VBG pO2 66 VBG HCO3 21 L VBG Total CO2 21 L VBG O2 Saturation 88 VBG Base Excess -6 L VBG Lactate Sodium 136 Potassium 4.8 Chloride 101 Carbon Dioxide 21.8 Anion Gap 13.2 H BUN 23 H Creatinine 1.7 H Estimated GFR/1.73 m2 29.98 Glucose 235 H Calcium 8.6 Magnesium 1.5 L Iron TIBC Ferritin Total Bilirubin 0.7 Conjugated Bilirubin 0.5 H AST 52 H ALT 41 Alkaline Phosphatase 271 H Lactate Dehydrogenase Troponin I NT-Pro-B Natriuret Pep 52328 H Total Protein 7.6 Albumin 1.6 L Lipase 136 Procalcitonin Urine Color Urine Clarity Urine pH Ur Specific [place] Urine Protein Urine Ketones Urine Blood Urine Nitrite Urine Bilirubin Urine Urobilinogen Ur Leukocyte Esterase Urine RBC Urine WBC Ur Epithelial Cells Urine Crystals Urine Bacteria Urine Casts Urine Mucus Ur Culture Indicated? Urine Glucose COVID-19 Source SARS-CoV-2 (PCR) Patient ABO/Rh Antibody Screen Crossmatch 02/04/21 02/04/21 02/04/21 00:35 00:35 00:35 WBC 32.88 H* RBC 2.78 L Hgb 8.7 L Hct 27.6 L MCV 99.3 H MCH 31.3 MCHC 31.5 L RDW 13.1 Plt Count 349 D MPV 11.6 H Immature Gran % 2.0 Neutrophils % 81.0 Lymphocytes % 12.0 Monocytes % 5.0 Eosinophils % 0.0 Basophils % 0.0 Myelocytes % 2 Nucleated RBC % 0 Absolute Neutrophils 26.63 H Absolute Lymphocytes 3.95 H Absolute Monocytes 1.64 H Absolute Eosinophils 0.00 Absolute Basophils 0.00 RBC Morphology See below Polychromasia Present Anisocytosis 1+ PT 11.5 H INR 1.1 APTT 27.3 VBG pH VBG pCO2 VBG pO2 VBG HCO3 VBG Total CO2 VBG O2 Saturation VBG Base Excess VBG Lactate 5.5 H* Sodium Potassium Chloride Carbon Dioxide Anion Gap BUN Creatinine Estimated GFR/1.73 m2 Glucose Calcium Magnesium Iron TIBC Ferritin Total Bilirubin Conjugated Bilirubin AST ALT Alkaline Phosphatase Lactate Dehydrogenase Troponin I NT-Pro-B Natriuret Pep Total Protein Albumin Lipase Procalcitonin Urine Color Urine Clarity Urine pH Ur Specific [place] Urine Protein Urine Ketones Urine Blood Urine Nitrite Urine Bilirubin Urine Urobilinogen Ur Leukocyte Esterase Urine RBC Urine WBC Ur Epithelial Cells Urine Crystals Urine Bacteria Urine Casts Urine Mucus Ur Culture Indicated? Urine Glucose COVID-19 Source SARS-CoV-2 (PCR) Patient ABO/Rh Antibody Screen Crossmatch 02/04/21 02/04/21 02/04/21 00:45 00:55 01:25 WBC RBC Hgb Hct MCV MCH MCHC RDW Plt Count MPV Immature Gran % Neutrophils % Lymphocytes % Monocytes % Eosinophils % Basophils % Myelocytes % Nucleated RBC % Absolute Neutrophils Absolute Lymphocytes Absolute Monocytes Absolute Eosinophils Absolute Basophils RBC Morphology Polychromasia Anisocytosis PT INR APTT VBG pH VBG pCO2 VBG pO2 VBG HCO3 VBG Total CO2 VBG O2 Saturation VBG Base Excess VBG Lactate Sodium Potassium Chloride Carbon Dioxide Anion Gap BUN Creatinine Estimated GFR/1.73 m2 Glucose Calcium Magnesium Iron TIBC Ferritin Total Bilirubin Conjugated Bilirubin AST ALT Alkaline Phosphatase Lactate Dehydrogenase Troponin I < 0.05 NT-Pro-B Natriuret Pep Total Protein Albumin Lipase Procalcitonin Urine Color Yellow Urine Clarity Cloudy Urine pH 5.5 Ur Specific [place] >= 1.030 H Urine Protein >=300 H Urine Ketones Negative Urine Blood Large H Urine Nitrite Negative Urine Bilirubin Negative Urine Urobilinogen 1.0 H Ur Leukocyte Esterase Negative Urine RBC 3-5 H Urine WBC 0-2 Ur Epithelial Cells Moderate Urine Crystals Moderate amorphous Urine Bacteria Rare Urine Casts Negative Urine Mucus Negative Ur Culture Indicated? C&s done as ordered Urine Glucose Negative COVID-19 Source Nasal/nares SARS-CoV-2 (PCR) Negative Patient ABO/Rh Antibody Screen Crossmatch 02/04/21 02/04/21 02/04/21 04:16 05:15 06:20 WBC RBC Hgb Hct MCV MCH MCHC RDW Plt Count MPV Immature Gran % Neutrophils % Lymphocytes % Monocytes % Eosinophils % Basophils % Myelocytes % Nucleated RBC % Absolute Neutrophils Absolute Lymphocytes Absolute Monocytes Absolute Eosinophils Absolute Basophils RBC Morphology Polychromasia Anisocytosis PT INR APTT VBG pH VBG pCO2 VBG pO2 VBG HCO3 VBG Total CO2 VBG O2 Saturation VBG Base Excess VBG Lactate Sodium 138 Potassium 4.6 Chloride 104 Carbon Dioxide 26.8 Anion Gap 7.2 BUN 24 H Creatinine 1.5 H Estimated GFR/1.73 m2 34.64 Glucose 172 H Calcium 8.3 L Magnesium Iron TIBC Ferritin 1395 H Total Bilirubin Conjugated Bilirubin AST ALT Alkaline Phosphatase Lactate Dehydrogenase 221 Troponin I Cancelled 0.20 H* NT-Pro-B Natriuret Pep Total Protein Albumin Lipase Procalcitonin Urine Color Urine Clarity Urine pH Ur Specific [place] Urine Protein Urine Ketones Urine Blood Urine Nitrite Urine Bilirubin Urine Urobilinogen Ur Leukocyte Esterase Urine RBC Urine WBC Ur Epithelial Cells Urine Crystals Urine Bacteria Urine Casts Urine Mucus Ur Culture Indicated? Urine Glucose COVID-19 Source SARS-CoV-2 (PCR) Patient ABO/Rh Antibody Screen Crossmatch 02/04/21 02/04/21 02/04/21 06:20 06:20 06:20 WBC 19.59 H D RBC 2.44 L Hgb 7.7 L Hct 23.7 L MCV 97.1 H MCH 31.6 MCHC 32.5 RDW 13.2 Plt Count 202 D MPV 11.8 H Immature Gran % Neutrophils % Lymphocytes % Monocytes % Eosinophils % Basophils % Myelocytes % Nucleated RBC % Absolute Neutrophils Absolute Lymphocytes Absolute Monocytes Absolute Eosinophils Absolute Basophils RBC Morphology Polychromasia Anisocytosis PT INR APTT VBG pH VBG pCO2 VBG pO2 VBG HCO3 VBG Total CO2 VBG O2 Saturation VBG Base Excess VBG Lactate Sodium Potassium Chloride Carbon Dioxide Anion Gap BUN Creatinine Estimated GFR/1.73 m2 Glucose Calcium Magnesium Iron TIBC Ferritin Total Bilirubin Conjugated Bilirubin AST ALT Alkaline Phosphatase Lactate Dehydrogenase Troponin I NT-Pro-B Natriuret Pep Total Protein Albumin Lipase Procalcitonin 2.7 Urine Color Urine Clarity Urine pH Ur Specific [place] Urine Protein Urine Ketones Urine Blood Urine Nitrite Urine Bilirubin Urine Urobilinogen Ur Leukocyte Esterase Urine RBC Urine WBC Ur Epithelial Cells Urine Crystals Urine Bacteria Urine Casts Urine Mucus Ur Culture Indicated? Urine Glucose COVID-19 Source SARS-CoV-2 (PCR) Patient ABO/Rh O Positive Antibody Screen Negative Crossmatch See Detail 02/04/21 02/04/21 02/04/21 06:20 08:10 10:15 WBC RBC Hgb Hct MCV MCH MCHC RDW Plt Count MPV Immature Gran % Neutrophils % Lymphocytes % Monocytes % Eosinophils % Basophils % Myelocytes % Nucleated RBC % Absolute Neutrophils Absolute Lymphocytes Absolute Monocytes Absolute Eosinophils Absolute Basophils RBC Morphology Polychromasia Anisocytosis PT INR APTT VBG pH VBG pCO2 VBG pO2 VBG HCO3 VBG Total CO2 VBG O2 Saturation VBG Base Excess VBG Lactate 0.9 Sodium Potassium Chloride Carbon Dioxide Anion Gap BUN Creatinine Estimated GFR/1.73 m2 Glucose Calcium Magnesium Iron 15 L TIBC 119 L Ferritin Total Bilirubin Conjugated Bilirubin AST ALT Alkaline Phosphatase Lactate Dehydrogenase Troponin I 0.20 H* NT-Pro-B Natriuret Pep Total Protein Albumin Lipase Procalcitonin Urine Color Urine Clarity Urine pH Ur Specific [place] Urine Protein Urine Ketones Urine Blood Urine Nitrite Urine Bilirubin Urine Urobilinogen Ur Leukocyte Esterase Urine RBC Urine WBC Ur Epithelial Cells Urine Crystals Urine Bacteria Urine Casts Urine Mucus Ur Culture Indicated? Urine Glucose COVID-19 Source SARS-CoV-2 (PCR) Patient ABO/Rh Antibody Screen Crossmatch 02/04/21 02/04/21 10:15 10:15 WBC RBC Hgb 7.7 L Hct 23.9 L MCV MCH MCHC RDW Plt Count MPV Immature Gran % Neutrophils % Lymphocytes % Monocytes % Eosinophils % Basophils % Myelocytes % Nucleated RBC % Absolute Neutrophils Absolute Lymphocytes Absolute Monocytes Absolute Eosinophils Absolute Basophils RBC Morphology Polychromasia Anisocytosis PT INR APTT VBG pH VBG pCO2 VBG pO2 VBG HCO3 VBG Total CO2 VBG O2 Saturation VBG Base Excess VBG Lactate Sodium Potassium Chloride Carbon Dioxide Anion Gap BUN Creatinine Estimated GFR/1.73 m2 Glucose Calcium Magnesium Iron TIBC Ferritin Total Bilirubin Conjugated Bilirubin AST ALT Alkaline Phosphatase Lactate Dehydrogenase Troponin I NT-Pro-B Natriuret Pep Total Protein Albumin Lipase 122 Procalcitonin Urine Color Urine Clarity Urine pH Ur Specific [place] Urine Protein Urine Ketones Urine Blood Urine Nitrite Urine Bilirubin Urine Urobilinogen Ur Leukocyte Esterase Urine RBC Urine WBC Ur Epithelial Cells Urine Crystals Urine Bacteria Urine Casts Urine Mucus Ur Culture Indicated? Urine Glucose COVID-19 Source SARS-CoV-2 (PCR) Patient ABO/Rh Antibody Screen Crossmatch
[2021-02-04 14:45] LABS: Troponin I 0.19 ng/mL (<0.06)
[2021-02-04] MEDS: HYDROmorphone 2 MG/ML VIAL IVP (16:08)
[2021-02-04 18:01] LABS: HCT 30.5 % (36.0-46.0); HGB 10.1 g/dL (11.2-15.7)
--- NOTE | 2021-02-04 18:14 | W.PM.DS.N ---
DS: Diagnosis Discharge Diagnosis (1) Peripancreatic abscess: Status: Acute Asessment and Plan: patient treated w/ cefepime, vancomycin, meropenem. see abdominal US and CT abdomen/pelvis for details. (2) Acute pulmonary edema: Status: Acute Asessment and Plan: patient w/ bnp 12,000, troponin I of 0.20, lateral t wave inversion I, avL, V4-V6 and new LV dysfunction LVEF 35 to 40% per echo. Patient treated w/ BIPAP, lasix drip, ASA. No heparin secondary to anemia, probable need for IR or surgical intervention of abdominal abscess. (3) Elevated troponin I level: Status: Acute Asessment and Plan: as above. troponin I felt to be demand ischemia however in setting of new LV dysfunction patient will require further evaluation for ACS/CAD. (4) GETACHEW (acute kidney injury): Status: Acute Asessment and Plan: creatinine of 1.7 on admission was 1.5 on transfer to [facility] however, I expect an acute rise d/t iv contrast for her CT abdomen/pelvis in setting of her LV dysfuntion and infection and hypoxemia. (5) Anasarca: Status: Acute (6) Anemia: Status: Chronic Asessment and Plan: patient baseline Hb is 9.5 to 10 gm but presented w/ hb 8.7 gm and dropped to 7.7 gm before receiving 1 unit of PRBC; discharge hb 10.1 gm (7) Non-insulin dependent type 2 diabetes mellitus: Status: Chronic (8) Nonalcoholic steatohepatitis: Status: Chronic Discharge Plan Disposition Patient Disposition: [facility] Condition: Serious Discharge Details Reason For Visit: PULMONARY EDEMA Admit Date/Time: 02/04/21 02:38 Admit Provider: Mauro Phelps Attending Provider: Mauro Phelps Primary Care Provider: Asia Gil Hospital Course Hospital Course: 65-year-old female with history of diabetes mellitus, Garcia, cirrhosis, chronic kidney disease stage III/a 2-3, GERD, previous laparoscopic cholecystectomy, TIA who has had a complicated course at [facility] starting with a failed ERCP in an attempt to remove a common bile duct stone causing pancreatitis. Please see [facility]'s discharge notes from January 26, 2021 and again from February 03, 2021. In summary her acute pancreatitis was treated with large amounts IV fluids and analgesic medications and by making her n.p.o. . During her first hospitalization it was determined by CT scan that there was no evidence of pseudocyst or abscess. During the second hospitalization CT scan suggested interval loculation of an enlarged thick-walled collection of fluid and pancreatitis. It was during this admission that she was initially treated with Zosyn which was eventually discontinued. In spite of continued elevation of her white count it was attributed due to acute inflammation of her pancreatitis. Eventually her diet was advanced and once she was able to tolerate her diet and she was discharged home after consultation with GI service and surgery. Plan was for her to follow-up with general surgery for surgical intervention once the acute inflammation had resolved. Patient was discharged home on 02/03. On the evening of 02/03 she developed acute dyspnea not associated w/ any CP, abdominal pain, fever or rigors or cough. She was hypoxemic w/ SPO2 in the 70%'s per EMS. Upon arrival to the ED at [facility] she was in respiratory distress w/ tachypnea, tachycardia and only able to speak in couple words. She was given BIPAP and bedside POCUS demonstrated diffuse B lines and acute CHF was presumed and CXR and BNP confirmed pulmonary edema (CXR w/ diffuse pulmonary congestion, BNP 12,000). Initially her EKG did not show ischemia and her troponin I was <0.05. She was given lasix 20 mg IVP and BIPAP w/ improvement in her dyspnea. Labs demonstrated WBC 32,000, stable anemia Hb 8.7 gm, worsening GETACHEW on CKD (creatinine up to 1.7 from 1.2 earlier in the day), normal lipase, elevated lactate 5.5, LFT w/ incr. alk phosph 271 but relatively normal or minimal transaminases AST 52, normal ALT 41 and mildly elevated direct bili 0.5). Patient had blood cultures taken and urine culture and was given Cefepime and Vancomycin empirically, ER was postulating HCAP. The acetylene plant operator admitted her to the ICU but did not continue antibiotics nor did she receive any further diuretics overnight. By morning her troponin reached 0.20 where it has plateaued (repeat levels of 0.20 at 10 am and 0.19 at 1400). However she became more dyspneic and began to complain of RUQ abdominal pain. Repeat EKG demonstrated lateral T wave inversion in I, avL, V4-V6 w/ her elevated troponin but she had no CP. Patient was begun on lasix drip at 10 mg/hr for her pulmonary edema after getting additional dose lasix 100 mg. Echo demonstrated the following: Conclusion Technically limited study. Left Ventricle : The left ventricle is normal size. Left ventricular systolic function is moderately decreased. There is normal left ventricular wall thickness. Unable to evaluate regional wall motion due to technically limited study. The left ventricular diastolic function is abnormal. LVEF is 35-40%. Right Ventricle : Right ventricle is mildly dilated. Right ventricular systolic function is grossly normal. The RVSP is 38.0 mmHg. Atria : The left atrium size is normal. The right atrium size is normal. Mitral Valve : Moderate mitral annular calcification. Mitral valve leaflets are moderately thickened. Mitral valve leaflets have restricted excursion. Trace to mild mitral regurgitation. Mild to moderate mitral stenosis. Great Vessels : The aortic root is normal in size. The ascending aorta is mildly dilated. Aortic arch is normal in caliber. IVC is normal in size and collapses >50% with inspiration. Compared to prior echocardiogram from 07/10/2020, the patient's ejection fraction is now reduced. Stat US of abdomen was done d/t her abdominal pain and recent pancreatitis. This demonstrated large complex fluid collection in the RUQ, bilateral pleural effusions. Stat CT of the abdomen w/ iv contrast was done and surgical consult was obtained w/ Dr. Anderson. CT demonstrated the following: IMPRESSION: 1. Persistent large fluid collection in the right upper quadrant of the abdomen suspicious for an abscess. 2. Status post cholecystectomy. Findings suspicious for pneumobilia. 3. Moderate amount of abdominal pelvic free fluid. 4. Inflammatory stranding seen around the pancreas suspicious for pancreatitis. 5. Large amount of subcutaneous edema suspicious for anasarca. 6. Moderate bilateral pleural effusions and subjacent infiltrates suspicious for atelectasis or pneumonia. 7. Results of this exam have been verbally communicated with provider. Note: results were not communicated w/ me the ordering physician but may have been communicated w/ Dr. Anderson by Dr. Shaffer the radiologist. Nevertheless, Dr. Anderson saw the patient in the ICU and accompanied the patient to CT. She then discussed the CT findings and we reviewed them together and she recommended transfer to [facility] for surgical evaluation for drainage procedure possible by IR versus surgery. I had renewed the patient's cefepime and vancomcyin this morning after I had recieved signout from the acetylene plant operator but added Meropenem to her regimen after reviewing her hepatic US and discussion w/ Dr. Anderson. After her CT was performed I discussed her case w/ [facility] transfer center and spoke w/ the MICU fellow call or contact centre coach who accepted the patient to the service of Dr. Brittny Woods on the MICU green team. Patient's hemoglobin had dropped overnight to 7.7 gm from admission level of 8.7 gm, but rectal exam was negative for occult blood. Nevertheless, patient was transfused 1 unit of PRBC. She was treated for GI prophylaxis w/ po protonix 40 mg bid and carafate. Repeat Hb after transfusion was 10.1 gm. At the time this note was prepared the patient was hemodynamically stable and her oxygen saturation was 96% on 2 LPM. Home Meds and New Rx's Prescriptions: No Action metoprolol succinate 50 mg tablet extended release 24 hr 50 mg PO DAILY Qty: 90 RF: 3 nitroglycerin 0.4 mg tablet, sublingual 0.4 mg SL Q5M PRN (Reason: chest pain) Qty: 100 RF: 0 polyethylene glycol 3350 [Miralax] 17 gram/dose powder 8.5 g PO BID PRN (Reason: constipation) Qty: 510 RF: 6 neuropaway 2 tab PO TID RF: 0 (DME) lancets [BD Ultra Fine Lancets] 33 gauge misc See Rx Instructions .ROUTE .MEDSUPPLY Qty: 200 RF: 5 (DME) FreeStyle Lite Strips Strip See Rx Instructions .ROUTE .MEDSUPPLY Qty: 200 RF: 5 gabapentin 100 mg capsule See Rx Instructions PO .COMPLEX Qty: 150 RF: 0 duloxetine 30 mg capsule,delayed release(DR/EC) 30 mg PO DAILY 30 Days Qty: 30 RF: 5 pantoprazole 40 mg tablet,delayed release (DR/EC) 40 mg PO DAILY Qty: 90 RF: 3 atorvastatin 40 mg tablet 40 mg PO HS RF: 0 acetaminophen 325 mg Tablet 650 mg PO Q4H PRN PRNRF: 0 calcium carbonate 500 mg calcium (1,250 mg) Tablet,Chewable 500 - 1,000 mg PO Q4H PRN PRNRF: 0 mirtazapine 7.5 mg tablet 7.5 mg PO QHS RF: 0 Discharge Instructions Instructions: Heart Attack (DC), Acute Kidney Injury (DC), Abscess (GEN) Referrals: Brittny Woods MD [ NON-[facility] STAFF PHYSICIAN] - Activity:: bedrest Diet:: npo DS: Summary Time Spent with Patient providing and/or coordinating discharge services: Greater than 30 minutes Specific discharge activities: multiple calls to [facility] and discussion w/ surgeon, completion of transfer papers and calls to family Status at Discharge Functional status at discharge: bed bound Overall status at discharge: patient is not back to baseline Mental Status: mental status grossly normal Speech and Movement: speech and movement normal Mood: congruent mood Affect: normal affect Exam Psych Mental Status: mental status grossly normal Speech and Movement: speech and movement normal Mood: congruent mood Affect: normal affect DS: Data Vitals/I&O Vitals and I&O: Vital Signs Temperature 36.4 C L 02/04/21 16:39 Temperature Source Temporal Artery Scan 02/04/21 15:30 Pulse 89 02/04/21 17:01 Pulse 87 02/04/21 18:00 Respiratory Rate 11 L 02/04/21 18:00 Respiratory Effort 02/04/21 15:30 Respiratory Depth Deep 02/04/21 15:30 Respiratory Pattern Normal 02/04/21 15:30 Blood Pressure 135/79 02/04/21 17:01 Blood Pressure Mean 91 02/04/21 17:01 Blood Pressure Position Supine 02/04/21 15:30 Pulse Oximetry 96 02/04/21 18:00 Oxygen Delivery Method Bi-pap 02/04/21 16:39 Oxygen Flow Rate 2 02/04/21 16:39 Fraction of Inspired Oxygen (FIO2) 28 02/04/21 16:30 Pain Level 8 02/04/21 15:30 Intake & Output 02/03/21 02/04/21 02/04/21 23:59 11:59 23:59 Intake Total 405 / 885 480 / 885 Output Total 560 / 1020 460 / 1020 Balance -155 / -135 20 / -135 Weight 95.5 kg Intake: IV 405 / 505 100 / 505 Blood Product 380 / 380 Rbc Leuko Reduced Unit 380 / 380 [id number] Output: Urine 560 / 1020 460 / 1020 Other: Urine Color Yellow Pale Yellow Urine Appearance Cloudy Clear Sediment Comment mi intact and draining yellow urine. mi Stool Occult Blood Negative Stool Size Small Stool Characteristics Soft Data Completed and Pending Labs on day of discharge: Labs from last 24 hours 02/04/21 02/04/21 02/04/21 17:55 17:55 14:15 WBC RBC Hgb 10.1 L D Hct 30.5 L D MCV MCH MCHC RDW Plt Count MPV Immature Gran % Neutrophils % Lymphocytes % Monocytes % Eosinophils % Basophils % Myelocytes % Nucleated RBC % Absolute Neutrophils Absolute Lymphocytes Absolute Monocytes Absolute Eosinophils Absolute Basophils RBC Morphology Polychromasia Anisocytosis Haptoglobin PT INR APTT VBG pH VBG pCO2 VBG pO2 VBG HCO3 VBG Total CO2 VBG O2 Saturation VBG Base Excess VBG Lactate Sodium Potassium Chloride Carbon Dioxide Anion Gap BUN Creatinine Estimated GFR/1.73 m2 Glucose Calcium Magnesium Iron TIBC Ferritin Total Bilirubin Conjugated Bilirubin AST ALT Alkaline Phosphatase Lactate Dehydrogenase Troponin I Pending 0.19 H* NT-Pro-B Natriuret Pep Total Protein Albumin Lipase Procalcitonin Urine Color Urine Clarity Urine pH Ur Specific Barco Urine Protein Urine Ketones Urine Blood Urine Nitrite Urine Bilirubin Urine Urobilinogen Ur Leukocyte Esterase Urine RBC Urine WBC Ur Epithelial Cells Urine Crystals Urine Bacteria Urine Casts Urine Mucus Ur Culture Indicated? Urine Glucose COVID-19 Source SARS-CoV-2 (PCR) Patient ABO/Rh Antibody Screen Crossmatch 02/04/21 02/04/21 02/04/21 10:15 10:15 10:15 WBC RBC Hgb 7.7 L Hct 23.9 L MCV MCH MCHC RDW Plt Count MPV Immature Gran % Neutrophils % Lymphocytes % Monocytes % Eosinophils % Basophils % Myelocytes % Nucleated RBC % Absolute Neutrophils Absolute Lymphocytes Absolute Monocytes Absolute Eosinophils Absolute Basophils RBC Morphology Polychromasia Anisocytosis Haptoglobin PT INR APTT VBG pH VBG pCO2 VBG pO2 VBG HCO3 VBG Total CO2 VBG O2 Saturation VBG Base Excess VBG Lactate Sodium Potassium Chloride Carbon Dioxide Anion Gap BUN Creatinine Estimated GFR/1.73 m2 Glucose Calcium Magnesium Iron TIBC Ferritin Total Bilirubin Conjugated Bilirubin AST ALT Alkaline Phosphatase Lactate Dehydrogenase Troponin I 0.20 H* NT-Pro-B Natriuret Pep Total Protein Albumin Lipase 122 Procalcitonin Urine Color Urine Clarity Urine pH Ur Specific Barco Urine Protein Urine Ketones Urine Blood Urine Nitrite Urine Bilirubin Urine Urobilinogen Ur Leukocyte Esterase Urine RBC Urine WBC Ur Epithelial Cells Urine Crystals Urine Bacteria Urine Casts Urine Mucus Ur Culture Indicated? Urine Glucose COVID-19 Source SARS-CoV-2 (PCR) Patient ABO/Rh Antibody Screen Crossmatch 02/04/21 02/04/21 02/04/21 08:10 06:20 06:20 WBC RBC Hgb Hct MCV MCH MCHC RDW Plt Count MPV Immature Gran % Neutrophils % Lymphocytes % Monocytes % Eosinophils % Basophils % Myelocytes % Nucleated RBC % Absolute Neutrophils Absolute Lymphocytes Absolute Monocytes Absolute Eosinophils Absolute Basophils RBC Morphology Polychromasia Anisocytosis Haptoglobin Pending PT INR APTT VBG pH VBG pCO2 VBG pO2 VBG HCO3 VBG Total CO2 VBG O2 Saturation VBG Base Excess VBG Lactate 0.9 Sodium Potassium Chloride Carbon Dioxide Anion Gap BUN Creatinine Estimated GFR/1.73 m2 Glucose Calcium Magnesium Iron 15 L TIBC 119 L Ferritin Total Bilirubin Conjugated Bilirubin AST ALT Alkaline Phosphatase Lactate Dehydrogenase Troponin I NT-Pro-B Natriuret Pep Total Protein Albumin Lipase Procalcitonin Urine Color Urine Clarity Urine pH Ur Specific Barco Urine Protein Urine Ketones Urine Blood Urine Nitrite Urine Bilirubin Urine Urobilinogen Ur Leukocyte Esterase Urine RBC Urine WBC Ur Epithelial Cells Urine Crystals Urine Bacteria Urine Casts Urine Mucus Ur Culture Indicated? Urine Glucose COVID-19 Source SARS-CoV-2 (PCR) Patient ABO/Rh Antibody Screen Crossmatch 02/04/21 02/04/21 02/04/21 06:20 06:20 06:20 WBC 19.59 H D RBC 2.44 L Hgb 7.7 L Hct 23.7 L MCV 97.1 H MCH 31.6 MCHC 32.5 RDW 13.2 Plt Count 202 D MPV 11.8 H Immature Gran % Neutrophils % Lymphocytes % Monocytes % Eosinophils % Basophils % Myelocytes % Nucleated RBC % Absolute Neutrophils Absolute Lymphocytes Absolute Monocytes Absolute Eosinophils Absolute Basophils RBC Morphology Polychromasia Anisocytosis Haptoglobin PT INR APTT VBG pH VBG pCO2 VBG pO2 VBG HCO3 VBG Total CO2 VBG O2 Saturation VBG Base Excess VBG Lactate Sodium Potassium Chloride Carbon Dioxide Anion Gap BUN Creatinine Estimated GFR/1.73 m2 Glucose Calcium Magnesium Iron TIBC Ferritin Total Bilirubin Conjugated Bilirubin AST ALT Alkaline Phosphatase Lactate Dehydrogenase Troponin I NT-Pro-B Natriuret Pep Total Protein Albumin Lipase Procalcitonin 2.7 Urine Color Urine Clarity Urine pH Ur Specific Barco Urine Protein Urine Ketones Urine Blood Urine Nitrite Urine Bilirubin Urine Urobilinogen Ur Leukocyte Esterase Urine RBC Urine WBC Ur Epithelial Cells Urine Crystals Urine Bacteria Urine Casts Urine Mucus Ur Culture Indicated? Urine Glucose COVID-19 Source SARS-CoV-2 (PCR) Patient ABO/Rh O Positive Antibody Screen Negative Crossmatch See Detail 02/04/21 02/04/21 02/04/21 06:20 05:15 04:16 WBC RBC Hgb Hct MCV MCH MCHC RDW Plt Count MPV Immature Gran % Neutrophils % Lymphocytes % Monocytes % Eosinophils % Basophils % Myelocytes % Nucleated RBC % Absolute Neutrophils Absolute Lymphocytes Absolute Monocytes Absolute Eosinophils Absolute Basophils RBC Morphology Polychromasia Anisocytosis Haptoglobin PT INR APTT VBG pH VBG pCO2 VBG pO2 VBG HCO3 VBG Total CO2 VBG O2 Saturation VBG Base Excess VBG Lactate Sodium 138 Potassium 4.6 Chloride 104 Carbon Dioxide 26.8 Anion Gap 7.2 BUN 24 H Creatinine 1.5 H Estimated GFR/1.73 m2 34.64 Glucose 172 H Calcium 8.3 L Magnesium Iron TIBC Ferritin 1395 H Total Bilirubin Conjugated Bilirubin AST ALT Alkaline Phosphatase Lactate Dehydrogenase 221 Troponin I 0.20 H* Cancelled NT-Pro-B Natriuret Pep Total Protein Albumin Lipase Procalcitonin Urine Color Urine Clarity Urine pH Ur Specific Barco Urine Protein Urine Ketones Urine Blood Urine Nitrite Urine Bilirubin Urine Urobilinogen Ur Leukocyte Esterase Urine RBC Urine WBC Ur Epithelial Cells Urine Crystals Urine Bacteria Urine Casts Urine Mucus Ur Culture Indicated? Urine Glucose COVID-19 Source SARS-CoV-2 (PCR) Patient ABO/Rh Antibody Screen Crossmatch 02/04/21 02/04/21 02/04/21 01:25 00:55 00:45 WBC RBC Hgb Hct MCV MCH MCHC RDW Plt Count MPV Immature Gran % Neutrophils % Lymphocytes % Monocytes % Eosinophils % Basophils % Myelocytes % Nucleated RBC % Absolute Neutrophils Absolute Lymphocytes Absolute Monocytes Absolute Eosinophils Absolute Basophils RBC Morphology Polychromasia Anisocytosis Haptoglobin PT INR APTT VBG pH VBG pCO2 VBG pO2 VBG HCO3 VBG Total CO2 VBG O2 Saturation VBG Base Excess VBG Lactate Sodium Potassium Chloride Carbon Dioxide Anion Gap BUN Creatinine Estimated GFR/1.73 m2 Glucose Calcium Magnesium Iron TIBC Ferritin Total Bilirubin Conjugated Bilirubin AST ALT Alkaline Phosphatase Lactate Dehydrogenase Troponin I < 0.05 NT-Pro-B Natriuret Pep Total Protein Albumin Lipase Procalcitonin Urine Color Yellow Urine Clarity Cloudy Urine pH 5.5 Ur Specific Barco >= 1.030 H Urine Protein >=300 H Urine Ketones Negative Urine Blood Large H Urine Nitrite Negative Urine Bilirubin Negative Urine Urobilinogen 1.0 H Ur Leukocyte Esterase Negative Urine RBC 3-5 H Urine WBC 0-2 Ur Epithelial Cells Moderate Urine Crystals Moderate amorphous Urine Bacteria Rare Urine Casts Negative Urine Mucus Negative Ur Culture Indicated? C&s done as ordered Urine Glucose Negative COVID-19 Source Nasal/nares SARS-CoV-2 (PCR) Negative Patient ABO/Rh Antibody Screen Crossmatch 02/04/21 02/04/21 02/04/21 00:35 00:35 00:35 WBC 32.88 H* RBC 2.78 L Hgb 8.7 L Hct 27.6 L MCV 99.3 H MCH 31.3 MCHC 31.5 L RDW 13.1 Plt Count 349 D MPV 11.6 H Immature Gran % 2.0 Neutrophils % 81.0 Lymphocytes % 12.0 Monocytes % 5.0 Eosinophils % 0.0 Basophils % 0.0 Myelocytes % 2 Nucleated RBC % 0 Absolute Neutrophils 26.63 H Absolute Lymphocytes 3.95 H Absolute Monocytes 1.64 H Absolute Eosinophils 0.00 Absolute Basophils 0.00 RBC Morphology See below Polychromasia Present Anisocytosis 1+ Haptoglobin PT 11.5 H INR 1.1 APTT 27.3 VBG pH VBG pCO2 VBG pO2 VBG HCO3 VBG Total CO2 VBG O2 Saturation VBG Base Excess VBG Lactate 5.5 H* Sodium Potassium Chloride Carbon Dioxide Anion Gap BUN Creatinine Estimated GFR/1.73 m2 Glucose Calcium Magnesium Iron TIBC Ferritin Total Bilirubin Conjugated Bilirubin AST ALT Alkaline Phosphatase Lactate Dehydrogenase Troponin I NT-Pro-B Natriuret Pep Total Protein Albumin Lipase Procalcitonin Urine Color Urine Clarity Urine pH Ur Specific Barco Urine Protein Urine Ketones Urine Blood Urine Nitrite Urine Bilirubin Urine Urobilinogen Ur Leukocyte Esterase Urine RBC Urine WBC Ur Epithelial Cells Urine Crystals Urine Bacteria Urine Casts Urine Mucus Ur Culture Indicated? Urine Glucose COVID-19 Source SARS-CoV-2 (PCR) Patient ABO/Rh Antibody Screen Crossmatch 02/04/21 02/04/21 02/04/21 00:35 00:35 00:35 WBC RBC Hgb Hct MCV MCH MCHC RDW Plt Count MPV Immature Gran % Neutrophils % Lymphocytes % Monocytes % Eosinophils % Basophils % Myelocytes % Nucleated RBC % Absolute Neutrophils Absolute Lymphocytes Absolute Monocytes Absolute Eosinophils Absolute Basophils RBC Morphology Polychromasia Anisocytosis Haptoglobin PT INR APTT VBG pH 7.26 L VBG pCO2 48 VBG pO2 66 VBG HCO3 21 L VBG Total CO2 21 L VBG O2 Saturation 88 VBG Base Excess -6 L VBG Lactate Sodium 136 Potassium 4.8 Chloride 101 Carbon Dioxide 21.8 Anion Gap 13.2 H BUN 23 H Creatinine 1.7 H Estimated GFR/1.73 m2 29.98 Glucose 235 H Calcium 8.6 Magnesium 1.5 L Iron TIBC Ferritin Total Bilirubin 0.7 Conjugated Bilirubin 0.5 H AST 52 H ALT 41 Alkaline Phosphatase 271 H Lactate Dehydrogenase Troponin I NT-Pro-B Natriuret Pep 62726 H Total Protein 7.6 Albumin 1.6 L Lipase 136 Procalcitonin Urine Color Urine Clarity Urine pH Ur Specific Barco Urine Protein Urine Ketones Urine Blood Urine Nitrite Urine Bilirubin Urine Urobilinogen Ur Leukocyte Esterase Urine RBC Urine WBC Ur Epithelial Cells Urine Crystals Urine Bacteria Urine Casts Urine Mucus Ur Culture Indicated? Urine Glucose COVID-19 Source SARS-CoV-2 (PCR) Patient ABO/Rh Antibody Screen Crossmatch 02/04/21 01:45 Blood Blood Culture - Pending 02/04/21 00:15 Blood Blood Culture - Pending 02/04/21 00:55 Urine - Cath Mi Indwelling Urine Culture - Pending Preliminary micro results at discharge 02/04/21 01:45 Blood Culture - Pending Blood 02/04/21 00:15 Blood Culture - Pending Blood 02/04/21 00:55 Urine Culture - Pending Urine - Cath Mi Indwelling [facility] Medical History (Updated 02/04/21 @ 18:19 by Zeke Marie) Anemia Anxiety Chronic pain disorder Hx Lyrica, Gabapentin, Opioids, Tramadol. D/C'd with mixed pain symptoms. Ortho surgery helped (2019). MJ helping. Daytime somnolence Diabetic neuropathy a. Bilateral. Esophageal stricture Foot pain, bilateral Presumed neuropathy, but Hx SURG and nerve blocks .. original Dx? GERD (gastroesophageal reflux disease) History of transient ischemic attack 2004 History of umbilical hernia Hyperlipidemia Hypertension Insomnia Medical marijuana use Nonalcoholic steatohepatitis Restless leg syndrome Doubting this Dx, 05/2020 Sinus tachycardia Snoring Stressful life event affecting family Bro (had been in rehab, s/p ICU in 05/2020).. Tubular adenoma (03/20/16) Surgical History Arthroplasty of knee Cholecystectomy Endometrial Ablation H/O esophagogastroduodenoscopy (~12/25/20) Hx of colonoscopy (~12/25/20) 2020-Tubular adenomas x10 Oophrectomy, Left Repair of umbilical hernia with mesh Repair, Tendon or Muscle Achilles Family History Mother Diabetes Father Heart disease Substance abuse Brother Substance abuse Depression Heart disease Social History Smoking/Tobacco Use Status: Never Smoking risk assessment performed?: Yes Alcohol Intake: current Alcohol Intake frequency: holidays/special occasions only Drug use: Occasionally Substance use type: marijuana Details: smoked small amount evening 12/24/20 for nausea Adopted: No Caregiver/Support person: No Foster care: No Household members: none Housing: house Do you need help understanding health information?: Rarely current occupation: [employer] Sexually active: No Do you think of yourself as: straight/heterosexual Current gender identity: female Do you feel safe at home: Yes Do you feel safe in your relationship?: Yes Additional Social history: lives alone
[2021-02-04] MEDS: Pantoprazole 40 MG VIAL IVP (19:03)
[2021-02-05 12:04] LABS: Haptoglobin 468 mg/dL (32-197)
== END 2021-02-04 19:35 | disposition short-term general hospital (02) | DRG 371 ==
LOC: ER 02:54 → ICU 03:07
PROVIDERS: Internal Medicine; Admitting Provider General Practice; Emergency Provider Emergency Medicine; PCP Student in an Organized Health Care Education/Training Program; Visit Provider General Practice
DX: K65.1 Peritoneal abscess; J81.0 Acute pulmonary edema; N17.9 Acute kidney failure, unspecified; I24.8 Other forms of acute ischemic heart disease; F41.9 Anxiety disorder, unspecified; K22.2 Esophageal obstruction; K21.9 Gastro-esophageal reflux disease without esophagitis; G89.29 Other chronic pain; E11.42 Type 2 diabetes mellitus with diabetic polyneuropathy; Z86.73 Personal history of transient ischemic attack (TIA), and cerebral infarction without residual deficits; E78.5 Hyperlipidemia, unspecified; G47.00 Insomnia, unspecified; G25.81 Restless legs syndrome; D50.0 Iron deficiency anemia secondary to blood loss (chronic); N18.31 Chronic kidney disease, stage 3a; E11.22 Type 2 diabetes mellitus with diabetic chronic kidney disease; E66.9 Obesity, unspecified; Z68.37 Body mass index [BMI] 37.0-37.9, adult; Z20.822 Contact with and (suspected) exposure to COVID-19; K75.81 Nonalcoholic steatohepatitis (NASH); I12.9 Hypertensive chronic kidney disease with stage 1 through stage 4 chronic kidney disease, or unspecified chronic kidney disease; R09.02 Hypoxemia; K80.50 Calculus of bile duct without cholangitis or cholecystitis without obstruction
CPT/HCPCS: 36415; 36430; 51702; 80048; 80053; 82805; 83690; 84145; 85027; 86850; 86900; 86901; 86920; 87040; 87635; 93005; 93306; 96365; 96368; 96375; 99291; 71045; 74177; 76700; 81003; 81015; 82248; 82728; 83010; 83540; 83550; 83605; 83615; 83735; 83880; 84484; 85014; 85018; 85025; 85610; 85730; 87086; 93010; 99236; J1940; J1941; J3490; P9016

== ENCOUNTER 2021-02-18 16:49 | Inpatient (IN) | payer OTHER, BC, SELFPAY ==
[2021-02-18] VITALS (47 sets, daily range): BP systolic 132–147; BP diastolic 51–68; PULSE 84–118; RESP 8–22; TEMP 36.6–37; O2SAT 80–100
--- NOTE | 2021-02-18 16:45 | RT.EKG_ITS ---
APPROVED REPORT Exam: Resting ECG Reason for Exam: pancreatitis, hx of CAD Patient Location: E HR:84 bpm ECG Measurements Heart Rate 84 AXIS MA 206 P 40 QRSd 86 QRS 7 QT 396 T 175 QTc 468 Conclusion Sinus rhythm...normal P axis, V-rate 60- 99 Abnrm T, probable ischemia, anterolateral lds...T <-0.50mV, I aVL V2-V6
--- NOTE | 2021-02-18 17:15 | ED.GENADUL_ITS ---
Discharge Plan Disposition Patient Disposition: [facility] INPATIENT Condition: Stable Discharge Details Clinical Impression: Fluid collection of pancreas Admit Date/Time: 02/18/21 21:03 Admit Provider: Dane Farrell Attending Provider: Dane Farrell Primary Care Provider: Asia Gil ED Provider: Ten Boss Discharge Data Discharge Date/Time-TO BE ENTERED AT DEPARTURE: 02/18/21 22:20 Medical Decision Making 65-year-old female discharge from [facility] 4-/2 days ago for pancreatitis. She was initially admitted from January 17 with post ERCP pancreatitis with retained stone in the cystic duct. She was then readmitted from January 28- with a loculated thick-walled peripancreatic fluid collection. She subsequently represented to [facility] where she was found to have a approximately 40 pound weight gain and fluid overload. She was eventually transported to [facility], underwent large-volume IV diuresis of approximately 26 pounds. She was admitted from February 04 to February 13. She states she has continued to lose approximate 10 pounds since being discharged. During hospitalization patient underwent cardiac cath which showed three-vessel atherosclerotic coronary vascular disease, she was felt to be a high risk surgical candidate for CABG.. She is to follow-up outpatient for a staged PCI. She is currently on Plavix. Today, she states after eating a half a sandwich during the lunchtime meal she developed acute onset of right upper quadrant sharp, constant pain. She is nauseated but no significant emesis. No fever. Denies chest pain or shortness of breath. She arrives to the ER with blood pressure 138/53, pulse 84, respirations 13, afebrile with a temp of 36 6 and oxygenating normally. She is tender in the right upper quadrant. Differential diagnosis includes recurrent pancreatitis, pancreatic cyst or pseudocyst, right upper quadrant pain, retained cystic duct stone. Given her recent non-STEMI, impressive fluid overload and significantly elevated BNP, troponin and BNP were added to laboratory. Patient had IV access established, given parenteral analgesia, half maintenance fluids, and and referred for laboratory testing, EKG, CT imaging. Patient has had a leukocytosis and today has decreased to a white count of 20. Sodium 135, potassium 4.9, chloride 97, BUN 31, creatinine 1.9 (baseline 1.4). AST 41, ALT 38, total bili 0.4. Troponin I negative, BNP 2600 (decreased from 12,000 and 14,000). Lipase is normal at 190. There is overall mild increase in the size of the fluid collection between the pancreatic head and right hepatic lobe with increased density of the fluid. F indings suggest evolving abscess or pseudocyst; see formal report. With the patient's persistent leukocytosis with left shift, persistent acute kidney injury, need for staged PCI, and now evidence of enlarging pancreatic fluid collection with concern for developing abscess, the patient's images were uploaded and case discussed with [facility]. They do not have capacity to accept patient transfer. Given the enlarging peripancreatic fluid collection, she may require interventional radiology for drainage, she is known to the cardiology service and has plans for staged approach to known three-vessel atherosclerotic coronary vascular disease. Given [facility]'s. familiarity with her case, her extended work-up there, I discussed the case with Dr. Farrell and we will admit to [facility] pending further availability for transfer to [facility] to be addressed tomorrow. HPI General Mode of arrival: ambulatory . Date/Time Provider Initiated Documentation: 02/18/21 16:50 . Limitations to Documentation: no limitations . Information obtained by: patient . History of Present Illness 65 year old F presents to the emergency department with the chief complaint of Recurrent right upper quadrant pain, described as moderate, severe and similar to prior episodes, Quality is described as dull and constant, and is localized to the abdomen. Patient reports no radiation. Patient started experiencing this hour(s) and it has been constant. No relieving factors improve symptom(s), No exacerbating factors reported . Patient notes loss of appetite; denies chest pain, fever/chills and shortness of breath. Patient did receive the following treatments prior to arrival, other (Tylenol) Related Data Home Medications Medication Instructions Recorded Confirmed metoprolol succinate 50 mg 50 mg PO DAILY #90 tab 06/10/20 02/18/21 tablet,extended release 24 hr nitroglycerin 0.4 mg sublingual 0.4 mg SL Q5M PRN #100 tab 07/08/20 02/18/21 tablet polyethylene glycol 3350 17 8.5 g PO BID PRN #510 g 07/08/20 02/18/21 gram/dose oral powder duloxetine 30 mg capsule,delayed 30 mg PO DAILY 30 Days #30 cap 09/16/20 02/04/21 release pantoprazole 40 mg tablet,delayed 40 mg PO DAILY #90 tab-cap NS 10/23/20 02/18/21 release neuropaway 2 tab PO TID 11/07/20 02/18/21 blood sugar diagnostic #200 each 11/17/20 12/23/20 lancets 33 gauge #200 each 11/17/20 12/23/20 atorvastatin 40 mg PO HS 12/25/20 02/18/21 gabapentin 100 mg capsule See Rx Instructions PO .COMPLEX 01/08/21 02/18/21 #150 cap acetaminophen 650 mg PO Q4H PRN PRN 01/28/21 02/18/21 calcium carbonate 500 - 1,000 mg PO Q4H PRN PRN 01/28/21 02/18/21 blood-glucose meter #1 ea 02/14/21 Freestyle Lite Glucometer See Rx Instructions .ROUTE 02/17/21 02/18/21 .COMPLEX #1 unit aspirin 81 mg tablet,delayed 81 mg PO DAILY 02/17/21 02/18/21 release clopidogrel 75 mg tablet 75 mg PO DAILY 02/17/21 02/18/21 losartan 25 mg tablet 25 mg PO DAILY 02/17/21 02/18/21 magnesium oxide 400 mg PO BID 02/17/21 02/18/21 melatonin 3 mg tablet 6 mg PO HS PRN tab 02/17/21 02/18/21 oxycodone 5 mg tablet 5 mg PO Q8H PRN 02/17/21 02/18/21 spironolactone 25 mg tablet 12.5 mg PO DAILY tab 02/17/21 02/18/21 torsemide 20 mg tablet 20 mg PO BID tab 02/17/21 02/18/21 trazodone 50 mg tablet 25 mg PO QHS PRN tab 02/17/21 02/18/21 Previous Rx's Medication Instructions Recorded metoprolol succinate 50 mg 50 mg PO DAILY #90 tab 06/10/20 tablet,extended release 24 hr nitroglycerin 0.4 mg sublingual 0.4 mg SL Q5M PRN #100 tab 07/08/20 tablet polyethylene glycol 3350 17 8.5 g PO BID PRN #510 g 07/08/20 gram/dose oral powder duloxetine 30 mg capsule,delayed 30 mg PO DAILY 30 Days #30 cap 09/16/20 release pantoprazole 40 mg tablet,delayed 40 mg PO DAILY #90 tab-cap NS 10/23/20 release blood sugar diagnostic #200 each 11/17/20 lancets 33 gauge #200 each 11/17/20 gabapentin 100 mg capsule See Rx Instructions PO .COMPLEX 01/08/21 #150 cap blood-glucose meter #1 ea 02/14/21 Freestyle Lite Glucometer See Rx Instructions .ROUTE 02/17/21 .COMPLEX #1 unit Allergies Allergy/AdvReac Type Severity Reaction Status Date / Time metoclopramide [From Reglan] Allergy Verified 02/18/21 17:05 pollen extracts Allergy Verified 02/18/21 17:05 propoxyphene HCl AdvReac Nausea Verified 02/18/21 17:05 [From Darvon] General Stated Complaint: Abd Prob SHERIDAN: 3 Review of Systems Narrative: 6 systems reviewed and otherwise negative COUNTS INCLUDE 234 BEDS AT THE [facility] Medical History Anemia Anxiety Chronic pain disorder Hx Lyrica, Gabapentin, Opioids, Tramadol. D/C'd with mixed pain symptoms. Ortho surgery helped (2019). MJ helping. Daytime somnolence Diabetic neuropathy a. Bilateral. Esophageal stricture Foot pain, bilateral Presumed neuropathy, but Hx SURG and nerve blocks .. original Dx? GERD (gastroesophageal reflux disease) History of transient ischemic attack 2004 History of umbilical hernia Hyperlipidemia Hypertension Insomnia Medical marijuana use Nonalcoholic steatohepatitis Restless leg syndrome Doubting this Dx, 05/2020 Sinus tachycardia Snoring Stressful life event affecting family Bro (had been in rehab, s/p ICU in 05/2020).. Tubular adenoma (03/20/16) Surgical History Arthroplasty of knee Cholecystectomy Endometrial Ablation H/O esophagogastroduodenoscopy (~12/25/20) Hx of colonoscopy (~12/25/20) 2020-Tubular adenomas x10 Oophrectomy, Left Repair of umbilical hernia with mesh Repair, Tendon or Muscle Achilles Family History Mother Diabetes Father Heart disease Substance abuse Brother Substance abuse Depression Heart disease Social History Smoking/Tobacco Use Status: Never Smoking risk assessment performed?: Yes Alcohol Intake: current Alcohol Intake frequency: holidays/special occasions only Drug use: Occasionally Substance use type: marijuana Details: smoked small amount evening 12/24/20 for nausea Adopted: No Caregiver/Support person: No Foster care: No Household members: none Housing: house Do you need help understanding health information?: Rarely current occupation: [employer] Sexually active: No Do you think of yourself as: straight/heterosexual Current gender identity: female Do you feel safe at home: Yes Do you feel safe in your relationship?: Yes Additional Social history: lives alone Exam Narrative Exam Narrative: GEN: awake, alert, oriented 3. Pleasant, well groomed, interactive. HEAD: Normocephalic, atraumatic ENT: Mucous membranes moist, oropharynx unremarkable, External ear exam unremarkable EYES: PERRL, EOMI NECK: Full ROM, no BEBO, no menigismus CHEST/RESP: Nontender, clear to auscultation bilateral, no wheeze/rhonchi/rales CARDIOVASCULAR: RRR, no murmur, rub kerry. 2+ Rad pulse bilateral ABDOMEN: Soft, tender in the right upper quadrant, mildly distended, decreased bowel sounds, no mass. EXT: Full ROM, no edema, no rash Neuro: Grossly normal neurologic exam, conversant, interactive. Psych: Speech fluent, thoughts congruent, affect normal Course Vital Signs Vital signs: Vital Signs Temperature 36.6 C 02/18/21 16:59 Pulse 84 02/18/21 16:59 Respiratory Rate 13 02/18/21 16:59 Blood Pressure 138/53 L 02/18/21 16:59 Pulse Oximetry 100 02/18/21 16:59 Temperature 36.6 C 02/18/21 16:59 Temperature Source Skin 02/18/21 16:59 Pulse 84 02/18/21 16:59 Respiratory Rate 13 02/18/21 16:59 Respiratory Effort Non-Labored 02/18/21 16:59 Blood Pressure 138/53 L 02/18/21 16:59 Pulse Oximetry 100 02/18/21 16:59 Oxygen Delivery Method Room Air 02/18/21 16:59 Oxygen Flow Rate 0 02/18/21 16:59 Pain Level 10 02/18/21 16:59
[2021-02-18 17:21] LABS: Abs Immature Grans 0.12 10^3/uL (0.0-0.06); Absolute Basophil Count 0.06 10^3/uL (0.0-0.2); Absolute Eosinophil Count 0.16 10^3/uL (0.0-0.7); Absolute Lymphocyte Count 3.33 10^3/uL (1.2-3.4); Absolute Monocyte Count 1.25 10^3/uL (0.1-0.8); Absolute Neutrophil Count 15.17 10^3/uL (1.2-6.7); Basophils % 0.3; Eosinophils % 0.8; HCT 26.7 % (36.0-46.0); HGB 8.4 g/dL (11.2-15.7); Immature Grans % 0.6; Lymphocytes % 16.6; MCH 30.3 pg (27.0-33.0); MCHC 31.5 % (32.0-36.0); MCV 96.4 fL (80-95); MPV 10.4 fL (8.0-11.0); Monocytes % 6.2; Neutrophils % 75.5; Nucleated RBC 0 %; RBC 2.77 10^6/uL (3.93-5.22); RDW 14.6 % (11.7-14.6); RDW-SD 51.7 fL; WBC 20.09 10^3/uL (4.4-10.8)
[2021-02-18] MEDS: HYDROmorphone 2 MG/ML VIAL 1 MG IVP (17:25)
[2021-02-18 17:33] LABS: ALT 38 U/L (14-59); AST 41 U/L (15-37); Albumin 2.3 g/dL (3.4-5.0); Alkaline Phosphatase 355 U/L (46-116); Anion Gap 8.7 mmol/L (3-11); BUN 31 mg/dL (7-18); Bilirubin, Total 0.4 mg/dL (0.2-1.0); CO2 29.3 mmol/L (21.0-32.0); CREATININE 1.9 mg/dL (0.55-1.02); Calcium 9.9 mg/dL (8.5-10.1); Chloride 97 mmol/L (98-107); Estimated GFR 26.37 (mL/min/1.73m2); Glucose 182 mg/dL (74-106); Lipase 190 U/L (73-393); Potassium 4.9 mmol/L (3.5-5.1); Sodium 135 mmol/L (136-145); Total Protein 9.4 g/dL (6.4-8.2)
[2021-02-18 17:39] LABS: Platelet Count 432 10^3/uL (130-400)
[2021-02-18 17:39] LABS: INR 1.1 (0.9-1.1); Prothrombin Time 11.2 sec (9.3-11.0)
[2021-02-18 17:40] LABS: Diff Comment PLT Morph Reviewed; RBC Morphology Normal
[2021-02-18 17:42] LABS: NT-proBNP 2600 pg/mL (<300)
[2021-02-18 17:49] LABS: ETHANOL BLOOD < 3.0 mg/dL (<3); Troponin I < 0.05 ng/mL (<0.06)
--- NOTE | 2021-02-18 18:03 | DI.CT_ITS ---
Exam(s) CT ABDOMEN PELVIS WO EXAM: CT ABDOMEN PELVIS WO CLINICAL HISTORY: epigastric pain, recent pancreatitis/cyst. TECHNIQUE: Imaging Protocol: Axial computed tomography images with coronal and sagittal reformatted images were created and reviewed CONTRAST MATERIAL: Intravenous: none Oral: None COMPARISON: CT CT ABDOMEN PELVIS W from 02/04/2021 FINDINGS: VISUALIZED LUNG BASES: Presently clear. The previously present bilateral pleural effusions have reso lved.. ABDOMEN: Although the perihepatic ascites is less than previous, there is a large somewhat heterogeneous colle ction evident in the gallbladder fossa region and interposed between the pancreatic head and right he patic lobe which persists and presently measures approximately 15 cm AP by 8 cm wide by 7 cm cephaloc audal. There is also noted a 5 millimeter calcification approximately 4 cm below the surgical clips in the gallbladder fossa. This may represent a residual gallstone related to the recent cholecystect fer. This large heterogeneous collection is either hematoma/bile collection/abscess, or a combination ther eof LIVER: There are no discrete intrahepatic lesions. . CBD is somewhat difficult to locate but does n ot appear to be grossly dilated. There are no calculi seen within the lower CBD. PANCREAS: Pancreatic head is contiguous with this abnormal collection. Pancreatic duct is not dilate d. SPLEEN: There is mild splenomegaly. No discrete focal findings evident in the spleen on this noninfu sed study. Cannot assess patency of the splenic and portal veins with as this is a noninfused study. ADRENALS: There are no significant adrenal masses. KIDNEYS:There is a well-defined 10 x 11 millimeter hyperdense lesion in the lateral cortex of the rig ht kidney noted. This is homogeneous. Possibly hemorrhagic cyst but requires ultrasound for further investigation. No other significant focal renal findings. No hydronephrosis. ABDOMINAL AORTA: Abdominal aorta is not enlarged. LYMPH NODES: There is no retroperitoneal nor paraaortic adenopathy. ABDOMINAL WALL: No evidence of significant anterior abdominal wall hernia. GI: There is no evidence of bowel obstruction, free air, nor abscess. PELVIS: LYMPH NODES: There is no intrapelvic nor inguinal adenopathy. GI: Some streaking is seen around the appendix but is most probably related to the pathology is descr ibed above more so than acute appendicitis. Sigmoid diverticulosis. There is no obvious acute diver ticulitis.No evidence of sigmoid diverticulitis. URINARY BLADDER: No calculi nor obvious masses evident REPRODUCTIVE: Age-appropriate OSSEOUS: No significant osseous lesions. IMPRESSION: 1. Compared to the CT scan of 02/04/2021 there has been resolution of the bilateral pleural effusions and since the laterally located perihepatic ascites. However, the previously described abnormal heterogeneous collection between the pancreatic head and r ight hepatic lobe as slightly increased in size. This large collection most probably represents comb ination of hematoma/abscess as well as possible bile leak/biloma. In addition, there is a focal calc ification within this collection and probably represents residual gallstone associated with the recen t cholecystectomy. 2. There is a 1.11.0 cm well-defined hyperdense right renal lesion in the lateral cortex which may re present a benign hyperdense cyst but cannot exclude small neoplasm or oncocytoma. Recommend follow-u p renal ultrasound as next step for this right renal finding. 3. Some streaking is seen around the appendix which is most probably related to the lower aspect of t he abnormal collection described above and less likely related to acute appendicitis. 4. Sigmoid diverticulosis. No obvious acute diverticulitis. RADIATION DOSE DELIVERED: 1,044.8mGy.cm Total DLP DATA REPOSITORY: All CT scans at this facility are submitted to the National Radiology Data Registry (NRDR) Dose Index Registry (DIR) with the [employer] (ACR). RADIATION OPTIMIZATION: All CT scans at this facility use at least one of these dose optimization te chniques: automated exposure control; mA and/or kV adjustment per patient size (includes targeted exa ms where dose is matched to clinical indication); or iterative reconstruction.
--- NOTE | 2021-02-18 18:45 | DI.VRAD_ITS ---
PROCEDURE INFORMATION: Exam: CT Abdomen And Pelvis Without Contrast Exam date and time: 02/18/2021 6:00 PM Age: 65 years old Clinical indication: Abdominal pain; Patient HX: Epigastric pain, recent pancreatitis/cyst TECHNIQUE: Imaging protocol: Computed tomography of the abdomen and pelvis without contrast. Radiation optimization: All CT scans at this facility use at least one of these dose optimization techniques: automated exposure control; mA and/or kV adjustment per patient size (includes targeted exams where dose is matched to clinical indication); or iterative reconstruction. COMPARISON: CT ABDOMEN PELVIS W 02/04/2021 12:29 PM FINDINGS: Lungs: There has been near complete resolution of the prior basilar atelectasis. There is some mosaic attenuation within the lung bases suggesting underlying bronchiolitis. Pleural spaces: The prior pleural effusions have resolved. Liver: See Intraperitoneal space finding. Gallbladder and bile ducts: There has been a cholecystectomy. Pancreas: The prior mild fat stranding around the pancreas is no longer clearly present. Spleen: The spleen has a length of 14.7 cm consistent with mild splenomegaly, mildly increased from prior study. Adrenal glands: Normal. No mass. Kidneys and ureters: There is a 1.1 cm hyperdense right renal lesion on image 42, series 2 which has a density 64 Hounsfield units. This is without clear change from prior study. Stomach and bowel: There is no evidence of small or large bowel inflammation. There is no evidence for bowel obstruction. There is mild diverticulosis of the distal colon, without evidence for acute diverticulitis. Appendix: The appendix is well visualized and appears normal. Intraperitoneal space: Again noted is a fluid collection within the right upper quadrant of the abdomen lateral to the pancreatic head and posterolateral to the 2nd portion of the duodenum, measuring 7.1 x 9.3 cm in axial dimensions, as seen on image 30, series 2, and 7.2 cm in craniocaudal dimension, as seen on coronal image 51, series 4. On prior study, this measured 6.7 x 9.3 x 5.7 cm, on remeasurement. There is a 3.9 x 6.9 cm component of the collection extending posteriorly adjacent to the posteromedial aspect of the right hepatic lobe, as seen on image 26, series 2, without change in size since prior study. There is also a smaller component extending anteriorly into the region of the omentum of the right upper quadrant, measuring approximately 4.3 x 4.0 cm, also without clear change. There has been mild increase in density of the collection since prior study, now measuring up to 20 Hounsfield units, whereas this measured up to 9 Hounsfield units on prior study. Findings suggest proteinaceous fluid but cannot exclude some degree of hemorrhage into the collection. There is increased thickness of the soft tissue rim around the entire collection as well. Findings suggest abscess versus complicated pseudocyst. There is a 7 x 5 mm focal calcification within the anterior aspect of this collection on image 31, series 2. This calcification resided more superiorly on prior study adjacent to the cholecystectomy clips. This could represent a residual gallstone associated with prior cholecystectomy. The prior small ascites has resolved. Vasculature: The aorta and iliac arteries demonstrate moderate atherosclerotic calcification without aneurysm formation. Lymph nodes: Unremarkable. No enlarged lymph nodes. Urinary bladder: Unremarkable as visualized. Reproductive: Unremarkable as visualized. Bones/joints: Unremarkable. No acute fracture. Soft tissues: The prior anasarca appears resolved. IMPRESSION: 1. Overall mild increase in size of the fluid collection between the pancreatic head and right hepatic lobe, with mild increase in density of the fluid within it as well as increased thickening of the soft tissue rim around the collection. Findings suggest evolving abscess or pseudocyst, but cannot exclude infected biloma. Further evaluation for active bile leak could be obtained with HIDA scan. 2. Focal calcification within the anterior aspect of the collection which has changed location compared with prior study and could represent residual gallstone associated with prior cholecystectomy. 3. Interval resolution of the prior pleural effusions and the small ascites on prior study. 4. 1.1 cm hyperdense right renal lesion may represent a benign hyperdense cyst, but right renal neoplasm cannot be excluded. Recommend follow-up renal ultrasound in 6 months to document stability. Dictated and Authenticated by: Chris Gomez MD. Ordering:JEREMIAH Caal MD
[2021-02-18] MEDS: Normal Saline 1,000 ML 75 ML IV (19:41)
[2021-02-18] MEDS: HYDROmorphone 2 MG/ML VIAL 0.5 MG IVP ×3 (19:42→22:40)
[2021-02-18 21:02] LABS: Troponin I 0.09 ng/mL (<0.06)
--- NOTE | 2021-02-18 21:29 | W.PM.HP.N ---
Date of service: 02/18/21 Time of Service: 21:30 Assessment and Plan Assessment and plan (1) Fluid collection of pancreas: Status: Acute Assessment and plan: Pseudocyst versus abscess. WBC count elevation favors the later. Zosyn initiated. The collection needs draining and evaluation of the contents. [facility] [place] status and current disposition. Plan on transfering when bed available. Monitor and treat in the ICU. (2) ASCVD (arteriosclerotic cardiovascular disease): Status: Acute Assessment and plan: Cont ASA but hold Plavix; planning transfer to [facility] [place] of the peripancreatic fluid collection. Cont metoprolol. Troponin negative initially; repeat of 0.09. Troponin ordered for 0030 tonight. No c/o CP. (3) Congestive heart failure: Status: Chronic Assessment and plan: Preserved EF. Cont Lasix and Spironolactone. Gentle IV fluids; pt is NPO. Cont BB. Monitor fluid status closely. Daily wts. (4) GETACHEW (acute kidney injury): Status: Acute Assessment and plan: Creatinine 1.9; was 1.5 on 02/04/2021. IV NS at 80ml/hr while NPO. Monitor. (5) Non-insulin dependent type 2 diabetes mellitus: Status: Chronic Assessment and plan: Random glucose 182 on admission. AM fasting glucose. Is now NPO on NS. (6) Bronchiolitis: Status: Acute Assessment and plan: Noted on CT chest. Pt w/o c/o cough or SOA. No recent PNA. Monitor. History of Present Illness History of Present Illness Chief Complaint: Abdominal Pain Narrative: This is a 65 yo female with a PMH of ASCVD, CHF, cholangitis, retained gallstone, Pancreatitis with pseudocyst, DM2/non-insulin dependent, KINGSLEY, neuropathy, CKD stage 3b, chronic pain, HLD, HTN, GERD, SIMMONS. She has a complicated recent history of admission to [facility] [place]17 - 01/27/2021 with retained stone in cystic duct. She developed post-ERCP pancreatitis. Readmitted at [facility] [place] 01[place]28 - 02/03 with loculated, thick-walled peripancreatic fluid collection. She presented to [facility] on 02/04/2021 and found to have significant volume overload and was transferred back [place] [facility] where she underwent large-volume diuresis with decrease in wt of 26#. She was d/c on 02/13/2021 from [facility]. She endorses losing another 10# since that discharge date. She also underwent cardiac catheterization at [facility] and found to have 3-vessel atherosclerotic CAD. She was deemed to be too high risk for CABG so staged PCI is being planned. She was placed on Plavix. Her pain on arrival to the ED at time of this admission was in the epigastric to RUQ areas. The pain has been constant without radiation. No emesis. No fever/chills. No diarrhea. Her WBC count was elevated at 20. Creatinine 1.9 (baseline recently of 1.4), BNP 2600 (decreased from recent values of 12,000 and 14,000). Lipase normal. CT abd/pelvis showed mild increase in the size of the known fluid collection located between the pancreatic head and the right hepatic lobe; increased density of fluid. This finding is suggestive of an evolving abscess or pseudocyst. ED physician, Dr Boss, discussed her case with [facility] physician and no bed was available for transfer. Plan to transfer for drainage of the fluid collection when bed available. Zosyn initiated in the ED. Pt being admitted to the ICU for close monitoring. Review of Systems All systems reviewed & are unremarkable except as noted in HPI and below PFSH Medical History Anemia Anxiety Chronic pain disorder Hx Lyrica, Gabapentin, Opioids, Tramadol. D/C'd with mixed pain symptoms. Ortho surgery helped (2019). MJ helping. Daytime somnolence Diabetic neuropathy a. Bilateral. Esophageal stricture Foot pain, bilateral Presumed neuropathy, but Hx SURG and nerve blocks .. original Dx? GERD (gastroesophageal reflux disease) History of transient ischemic attack 2004 History of umbilical hernia Hyperlipidemia Hypertension Insomnia Medical marijuana use Nonalcoholic steatohepatitis Restless leg syndrome Doubting this Dx, 05/2020 Sinus tachycardia Snoring Stressful life event affecting family Bro (had been in rehab, s/p ICU in 05/2020).. Tubular adenoma (03/20/16) Surgical History Arthroplasty of knee Cholecystectomy Endometrial Ablation H/O esophagogastroduodenoscopy (~12/25/20) Hx of colonoscopy (~12/25/20) 2020-Tubular adenomas x10 Oophrectomy, Left Repair of umbilical hernia with mesh Repair, Tendon or Muscle Achilles Family History Mother Diabetes Father Heart disease Substance abuse Brother Substance abuse Depression Heart disease Social History Smoking/Tobacco Use Status: Never Smoking risk assessment performed?: Yes Alcohol Intake: current Alcohol Intake frequency: holidays/special occasions only Drug use: Occasionally Substance use type: marijuana Details: smoked small amount evening 12/24/20 for nausea Adopted: No Caregiver/Support person: No Foster care: No Household members: none Housing: house Do you need help understanding health information?: Rarely current occupation: [employer] Sexually active: No Do you think of yourself as: straight/heterosexual Current gender identity: female Do you feel safe at home: Yes Do you feel safe in your relationship?: Yes Additional Social history: lives alone Meds Allergies and Home Medications Allergies Allergy/AdvReac Type Severity Reaction Status Date / Time metoclopramide [From Reglan] Allergy Verified 02/18/21 17:05 pollen extracts Allergy Verified 02/18/21 17:05 propoxyphene HCl AdvReac Nausea Verified 02/18/21 17:05 [From Darvon] Home Medications Medication Instructions Recorded Confirmed Type metoprolol succinate 50 mg 50 mg PO DAILY #90 tab 06/10/20 02/18/21 Rx tablet,extended release 24 hr nitroglycerin 0.4 mg sublingual 0.4 mg SL Q5M PRN #100 tab 07/08/20 02/18/21 Rx tablet polyethylene glycol 3350 17 8.5 g PO BID PRN #510 g 07/08/20 02/18/21 Rx gram/dose oral powder duloxetine 30 mg capsule,delayed 30 mg PO DAILY 30 Days #30 cap 09/16/20 02/04/21 Rx release pantoprazole 40 mg tablet,delayed 40 mg PO DAILY #90 tab-cap NS 10/23/20 02/18/21 Rx release neuropaway 2 tab PO TID 11/07/20 02/18/21 History blood sugar diagnostic #200 each 11/17/20 12/23/20 Rx lancets 33 gauge #200 each 11/17/20 12/23/20 Rx atorvastatin 40 mg PO HS 12/25/20 02/18/21 History gabapentin 100 mg capsule See Rx Instructions PO .COMPLEX 01/08/21 02/18/21 Rx #150 cap acetaminophen 650 mg PO Q4H PRN PRN 01/28/21 02/18/21 History calcium carbonate 500 - 1,000 mg PO Q4H PRN PRN 01/28/21 02/18/21 History blood-glucose meter #1 ea 02/14/21 Rx Freestyle Lite Glucometer See Rx Instructions .ROUTE 02/17/21 02/18/21 Rx .COMPLEX #1 unit aspirin 81 mg tablet,delayed 81 mg PO DAILY 02/17/21 02/18/21 History release clopidogrel 75 mg tablet 75 mg PO DAILY 02/17/21 02/18/21 History losartan 25 mg tablet 25 mg PO DAILY 02/17/21 02/18/21 History magnesium oxide 400 mg PO BID 02/17/21 02/18/21 History melatonin 3 mg tablet 6 mg PO HS PRN tab 02/17/21 02/18/21 History oxycodone 5 mg tablet 5 mg PO Q8H PRN 02/17/21 02/18/21 History spironolactone 25 mg tablet 12.5 mg PO DAILY tab 02/17/21 02/18/21 History torsemide 20 mg tablet 20 mg PO BID tab 02/17/21 02/18/21 History trazodone 50 mg tablet 25 mg PO QHS PRN tab 02/17/21 02/18/21 History Exam Const General: cooperative and ill appearing Nutritional Appearance: overweight Orientation: alert and oriented x3 Eyes Sclera: sclerae normal Pupils: PERRL Resp Effort & Inspection: normal respiratory effort Auscultation: rales bilaterally at the base Cardio Rate: regular rate Rhythm: regular rhythm Heart Sounds: S1 normal and S2 normal GI Palpation: soft and tender in the RUQ Skin General skin exam: no rashes or lesions noted Extrem General: no pedal edema and no calf tenderness Psych Appearance: grossly normal Mental Status: mental status grossly normal Speech and Movement: speech and movement normal Results Labs Result diagrams: 02/18/21 17:05 02/18/21 17:05 Labs: Laboratory Results - last 24 hr 02/18/21 02/18/21 02/18/21 17:05 17:05 17:10 WBC 20.09 H RBC 2.77 L Hgb 8.4 L Hct 26.7 L MCV 96.4 H MCH 30.3 MCHC 31.5 L RDW 14.6 Plt Count 432 H D MPV 10.4 Immature Gran % 0.6 Neutrophils % 75.5 Lymphocytes % 16.6 Monocytes % 6.2 Eosinophils % 0.8 Basophils % 0.3 Nucleated RBC % 0 Absolute Neutrophils 15.17 H Absolute Lymphocytes 3.33 Absolute Monocytes 1.25 H Absolute Eosinophils 0.16 Absolute Basophils 0.06 RBC Morphology Normal PT INR APTT Sodium 135 L Potassium 4.9 Chloride 97 L Carbon Dioxide 29.3 Anion Gap 8.7 BUN 31 H Creatinine 1.9 H Estimated GFR/1.73 m2 26.37 Glucose 182 H Calcium 9.9 Magnesium Total Bilirubin 0.4 AST 41 H ALT 38 Alkaline Phosphatase 355 H Troponin I NT-Pro-B Natriuret Pep Total Protein 9.4 H Albumin 2.3 L Lipase 190 Ethyl Alcohol < 3.0 02/18/21 02/18/21 02/18/21 17:10 17:10 20:30 WBC RBC Hgb Hct MCV MCH MCHC RDW Plt Count MPV Immature Gran % Neutrophils % Lymphocytes % Monocytes % Eosinophils % Basophils % Nucleated RBC % Absolute Neutrophils Absolute Lymphocytes Absolute Monocytes Absolute Eosinophils Absolute Basophils RBC Morphology PT 11.2 H INR 1.1 APTT 25.0 Sodium Potassium Chloride Carbon Dioxide Anion Gap BUN Creatinine Estimated GFR/1.73 m2 Glucose Calcium Magnesium Total Bilirubin AST ALT Alkaline Phosphatase Troponin I < 0.05 0.09 H* NT-Pro-B Natriuret Pep 2600 H Total Protein Albumin Lipase Ethyl Alcohol 02/18/21 20:30 WBC RBC Hgb Hct MCV MCH MCHC RDW Plt Count MPV Immature Gran % Neutrophils % Lymphocytes % Monocytes % Eosinophils % Basophils % Nucleated RBC % Absolute Neutrophils Absolute Lymphocytes Absolute Monocytes Absolute Eosinophils Absolute Basophils RBC Morphology PT INR APTT Sodium Potassium Chloride Carbon Dioxide Anion Gap BUN Creatinine Estimated GFR/1.73 m2 Glucose Calcium Magnesium 2.0 Total Bilirubin AST ALT Alkaline Phosphatase Troponin I NT-Pro-B Natriuret Pep Total Protein Albumin Lipase Ethyl Alcohol Last Vital Signs Temp 36.6 C 02/18/21 16:59 Pulse 88 02/18/21 17:46 Resp 21 02/18/21 20:40 BP 132/55 L 02/18/21 17:46 Pulse Ox 97 02/18/21 20:40 COVID-19 Screening Have you, or household traveled for leisure in last 14 days?: No Had IN PERSON contact w/suspected or confirmed C-19 person: No
[2021-02-18] MEDS: PIPERACILLIN/TAZO 4.5 GM in Normal Saline 100 ML IVPB (22:28)
[2021-02-18] MEDS: Normal Saline Flush 10 ML SYR IVP (22:42)
[2021-02-18 23:57] LABS: COVID-19 PCR Negative (Negative)
[2021-02-19] VITALS (80 sets, daily range): BP systolic 98–143; BP diastolic 32–72; PULSE 76–105; RESP 9–22; TEMP 35.9–37.3; O2SAT 89–98
[2021-02-19] MEDS: Atorvastatin 40 MG TAB PO (00:05)
[2021-02-19] MEDS: Heparin 5,000 UNITS/ML VIAL 5000 UNITS SC ×2 (00:06→07:51)
[2021-02-19 00:58] LABS: Troponin I < 0.05 ng/mL (<0.06)
[2021-02-19] MEDS: HYDROmorphone 2 MG/ML VIAL 0.5 MG IVP ×2 (03:27→08:01)
[2021-02-19 06:56] LABS: Abs Immature Grans 0.12 10^3/uL (0.0-0.06); Absolute Lymphocyte Count 2.93 10^3/uL (1.2-3.4); Basophils % 0.4; Eosinophils % 0.4; HCT 24.7 % (36.0-46.0); HGB 7.6 g/dL (11.2-15.7); Immature Grans % 0.6; Lymphocytes % 15.3; MCH 29.3 pg (27.0-33.0); MCHC 30.8 % (32.0-36.0); MCV 95.4 fL (80-95); MPV 10.6 fL (8.0-11.0); Monocytes % 6.8; Neutrophils % 76.5; Nucleated RBC 0 %; Platelet Count 377 10^3/uL (130-400); RBC 2.59 10^6/uL (3.93-5.22); RDW 14.6 % (11.7-14.6); RDW-SD 50.5 fL; WBC 19.18 10^3/uL (4.4-10.8)
[2021-02-19 06:58] LABS: Absolute Basophil Count 0.08 10^3/uL (0.0-0.2); Absolute Eosinophil Count 0.08 10^3/uL (0.0-0.7); Absolute Neutrophil Count 14.67 10^3/uL (1.2-6.7)
[2021-02-19 07:30] LABS: ALT 32 U/L (14-59); AST 32 U/L (15-37); Alkaline Phosphatase 292 U/L (46-116); Anion Gap 7.8 mmol/L (3-11); BUN 32 mg/dL (7-18); Bilirubin, Total 0.6 mg/dL (0.2-1.0); CO2 28.2 mmol/L (21.0-32.0); CREATININE 1.8 mg/dL (0.55-1.02); Calcium 9.3 mg/dL (8.5-10.1); Chloride 100 mmol/L (98-107); Estimated GFR 28.07 (mL/min/1.73m2); Glucose 149 mg/dL (74-106); Potassium 4.9 mmol/L (3.5-5.1); Sodium 136 mmol/L (136-145); Total Protein 8.4 g/dL (6.4-8.2)
[2021-02-19 07:32] LABS: Troponin I < 0.05 ng/mL (<0.06)
[2021-02-19] MEDS: DULoxetine 30 MG CAP PO (07:49)
[2021-02-19] MEDS: Gabapentin 100 MG CAP 200 MG PO (07:50)
[2021-02-19] MEDS: Losartan 25 MG TAB PO (07:50)
[2021-02-19] MEDS: Aspirin E.C. 81 MG TABEC PO (07:50)
[2021-02-19] MEDS: Pantoprazole 40 MG TABCR PO (07:50)
[2021-02-19] MEDS: Magnesium Oxide 400 MG TAB PO (07:50)
[2021-02-19] MEDS: Torsemide 20 MG TAB PO (07:50)
[2021-02-19] MEDS: Metoprolol CR 50 MG TABCR PO (07:50)
[2021-02-19] MEDS: Spironolactone 25 MG TAB 12.5 MG PO (07:51)
[2021-02-19 08:24] LABS: Iron 11 ug/dL (50-170); Total Iron Binding Capacity 202 ug/dL (250-450); Transferrin Sat 5 % (15-50)
[2021-02-19] MEDS: IMIPENEM/CILASTATIN 500 MG in Normal Saline 100 ML 200 MG IVPB (08:26)
[2021-02-19 08:43] LABS: Procalcitonin 0.9 ng/mL
--- NOTE | 2021-02-19 08:43 | W.PM.PROGNOT ---
Subjective Subjective Interval history since last seen: No fevers. No nausea overnight. RUQ pain. Dilaudid does help. NPO. Ice chips. NS at 75 cc/hr. Objective Last Vital Signs Temp 36.3 C L 02/19/21 03:40 Pulse 105 H 02/19/21 03:30 Resp 11 L 02/19/21 03:31 BP 104/72 02/19/21 03:30 Pulse Ox 96 02/19/21 03:31 Laboratory Results - last 24 hr 02/18/21 02/18/21 02/18/21 17:05 17:05 17:10 WBC 20.09 H RBC 2.77 L Hgb 8.4 L Hct 26.7 L MCV 96.4 H MCH 30.3 MCHC 31.5 L RDW 14.6 Plt Count 432 H D MPV 10.4 Immature Gran % 0.6 Neutrophils % 75.5 Lymphocytes % 16.6 Monocytes % 6.2 Eosinophils % 0.8 Basophils % 0.3 Nucleated RBC % 0 Absolute Neutrophils 15.17 H Absolute Lymphocytes 3.33 Absolute Monocytes 1.25 H Absolute Eosinophils 0.16 Absolute Basophils 0.06 RBC Morphology Normal PT INR APTT Sodium 135 L Potassium 4.9 Chloride 97 L Carbon Dioxide 29.3 Anion Gap 8.7 BUN 31 H Creatinine 1.9 H Estimated GFR/1.73 m2 26.37 Glucose 182 H Calcium 9.9 Magnesium Iron TIBC Transferrin % Sat Total Bilirubin 0.4 AST 41 H ALT 38 Alkaline Phosphatase 355 H Troponin I C-Reactive Protein NT-Pro-B Natriuret Pep Total Protein 9.4 H Albumin 2.3 L Lipase 190 Ethyl Alcohol < 3.0 COVID-19 Source SARS-CoV-2 (PCR) 02/18/21 02/18/21 02/18/21 17:10 17:10 20:30 WBC RBC Hgb Hct MCV MCH MCHC RDW Plt Count MPV Immature Gran % Neutrophils % Lymphocytes % Monocytes % Eosinophils % Basophils % Nucleated RBC % Absolute Neutrophils Absolute Lymphocytes Absolute Monocytes Absolute Eosinophils Absolute Basophils RBC Morphology PT 11.2 H INR 1.1 APTT 25.0 Sodium Potassium Chloride Carbon Dioxide Anion Gap BUN Creatinine Estimated GFR/1.73 m2 Glucose Calcium Magnesium Iron TIBC Transferrin % Sat Total Bilirubin AST ALT Alkaline Phosphatase Troponin I < 0.05 0.09 H* C-Reactive Protein NT-Pro-B Natriuret Pep 2600 H Total Protein Albumin Lipase Ethyl Alcohol COVID-19 Source SARS-CoV-2 (PCR) 02/18/21 02/18/21 02/18/21 20:30 21:54 22:00 WBC RBC Hgb Hct MCV MCH MCHC RDW Plt Count MPV Immature Gran % Neutrophils % Lymphocytes % Monocytes % Eosinophils % Basophils % Nucleated RBC % Absolute Neutrophils Absolute Lymphocytes Absolute Monocytes Absolute Eosinophils Absolute Basophils RBC Morphology PT INR APTT Sodium Potassium Chloride Carbon Dioxide Anion Gap BUN Creatinine Estimated GFR/1.73 m2 Glucose Calcium Magnesium 2.0 Iron TIBC Transferrin % Sat Total Bilirubin AST ALT Alkaline Phosphatase Troponin I Cancelled C-Reactive Protein NT-Pro-B Natriuret Pep Total Protein Albumin Lipase Ethyl Alcohol COVID-19 Source Nasopharyx SARS-CoV-2 (PCR) Negative 02/19/21 02/19/21 02/19/21 00:34 06:25 06:25 WBC 19.18 H RBC 2.59 L Hgb 7.6 L Hct 24.7 L MCV 95.4 H MCH 29.3 MCHC 30.8 L RDW 14.6 Plt Count 377 MPV 10.6 Immature Gran % 0.6 Neutrophils % 76.5 Lymphocytes % 15.3 Monocytes % 6.8 Eosinophils % 0.4 Basophils % 0.4 Nucleated RBC % 0 Absolute Neutrophils 14.67 H Absolute Lymphocytes 2.93 Absolute Monocytes 1.30 H Absolute Eosinophils 0.08 Absolute Basophils 0.08 RBC Morphology PT INR APTT Sodium 136 Potassium 4.9 Chloride 100 Carbon Dioxide 28.2 Anion Gap 7.8 BUN 32 H Creatinine 1.8 H Estimated GFR/1.73 m2 28.07 Glucose 149 H Calcium 9.3 Magnesium Iron TIBC Transferrin % Sat Total Bilirubin 0.6 AST 32 ALT 32 Alkaline Phosphatase 292 H Troponin I < 0.05 < 0.05 C-Reactive Protein 18.70 H NT-Pro-B Natriuret Pep Total Protein 8.4 H Albumin 2.0 L Lipase Ethyl Alcohol COVID-19 Source SARS-CoV-2 (PCR) 02/19/21 06:25 WBC RBC Hgb Hct MCV MCH MCHC RDW Plt Count MPV Immature Gran % Neutrophils % Lymphocytes % Monocytes % Eosinophils % Basophils % Nucleated RBC % Absolute Neutrophils Absolute Lymphocytes Absolute Monocytes Absolute Eosinophils Absolute Basophils RBC Morphology PT INR APTT Sodium Potassium Chloride Carbon Dioxide Anion Gap BUN Creatinine Estimated GFR/1.73 m2 Glucose Calcium Magnesium Iron 11 L TIBC 202 L Transferrin % Sat 5 L Total Bilirubin AST ALT Alkaline Phosphatase Troponin I C-Reactive Protein NT-Pro-B Natriuret Pep Total Protein Albumin Lipase Ethyl Alcohol COVID-19 Source SARS-CoV-2 (PCR)
[2021-02-19 08:46] LABS: Ferritin 463 ng/mL (8-252)
--- NOTE | 2021-02-19 08:59 | INITIAL_ITS ---
- If Service Date Differs Date of service: 02/19/21 Time of Service: 08:59 Care Management Initial Assess REASON FOR HOSPITALIZATION:: Fluid collection of pancreas PAST MEDICAL HISTORY/PAST SURGICAL HISTORY:: Medical History . Anemia. Anxiety. Chronic pain disorder. Hx Lyrica, Gabapentin, Opioids, Tramadol. D/C'd with mixed pain symptoms. Ortho surgery helped (2019). MJ helping. Daytime somnolence. Diabetic neuropathy. a. Bilateral. Esophageal stricture. Foot pain, bilateral. Presumed neuropathy, but Hx SURG and nerve blocks .. original Dx? GERD (gastroesophageal reflux disease). History of transient ischemic attack. 2004. History of umbilical hernia. Hyperlipidemia. Hypertension. Insomnia. Medical marijuana use. Nonalcoholic steatohepatitis. Restless leg syndrome. Doubting this Dx, 05/2020. Sinus tachycardia. Snoring. Stressful life event affecting family. Bro (had been in rehab, s/p ICU in 05/2020).. Tubular adenoma (03/20/16). Surgical History . Arthroplasty of knee. Cholecystectomy. Endometrial Ablation. H/O esophagogastroduodenoscopy (~12/25/20). Hx of colonoscopy (~12/25/20). 2020- Tubular adenomas x10. Oophrectomy, Left. Repair of umbilical hernia. with mesh. Repair, Tendon or Muscle. Achilles PREVIOUS FUNCTIONAL STATUS/SOCIAL/FAMILY SUPPORTS:: Patient is a 65 year old female who resides in [facility]. Patient has two daughters one locally and one in [place]. 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 Toyin has been hospitalized at [facility] twice in the past month. She has become weak and currently requires the use of a cane and walker at home. CURRENT FUNCTIONAL STATUS:: Toyin is being transferred to [facility] ADVANCE DIRECTIVES:: none on file Has patient been provided with info about the portal/API?: Yes Did the patient sign up for the portal?: No CODE STATUS:: Full Code INSURANCE COVERAGE / FINANCIAL ISSUES:: [facility] MCR replacement plan PRIMARY CARE PHYSICIAN:: Asia Gil POTENTIAL DISCHARGE NEEDS:: Followup with PCP and discharge plan PATIENT/FAMILY EDUCATION NEEDS:: Review of Discharge instructions, medications, follow up plan, Ask Me Three TRANSPORTATION:: ambulance coordinated by nursing facility maintenance supervisor PLAN:: Toyin will be discharged to [facility] later today. She will follow up with their providers and plan of care and transport via ambulance coordinated by nursing facility maintenance supervisor.
[2021-02-19] MEDS: Normal Saline Flush 10 ML SYR IVP ×2 (10:13→10:40)
[2021-02-19] MEDS: Ondansetron 4 MG/2 ML VIAL IVP (10:40)
--- NOTE | 2021-02-19 11:40 | W.PM.DS.N ---
Date of service: 02/19/21 Time of Service: 11:40 DS: Diagnosis Discharge Diagnosis (1) Acute on chronic pancreatitis: Status: Acute (2) Fluid collection of pancreas: Status: Acute (3) Retained stone fragments: Status: Acute (4) Atelectasis: Status: Acute (5) Bronchiolitis: Status: Suspected Asessment and Plan: no clear evidence of pulmonary infection clinically (6) CAD (coronary artery disease): Status: Chronic (7) Non-insulin dependent type 2 diabetes mellitus: Status: Chronic (8) Congestive heart failure: Status: Chronic Asessment and Plan: not in acute exacerbation (9) CKD (chronic kidney disease) stage 4, GFR 15-29 ml/min: Status: Chronic (10) Iron deficiency anemia: Status: Chronic (11) COVID-19 ruled out by laboratory testing: Status: Ruled-out Discharge Plan Disposition Patient Disposition: [facility] Condition: Stable Discharge Details Reason For Visit: pancreatic abcess Admit Date/Time: 02/18/21 21:03 Admit Provider: Dane Farrell Attending Provider: Dane Farrell Primary Care Provider: Asia Gil [place] Hospital Course Hospital Course: Ms Coley is a 65 year old female with PMHx of choledocholithiasis and post-ERCP pancreatitis with development of a pseudocyst, as well as h/o CAD with 3 vessel disease currently being treated medically, h/o CKD 3-4, and NIDDM2, who was admitted to [facility] hospitalist service on 01/19/21 with RUQ pain, clinically attributed to acute on chronic pancreatitis with peripancreatic fluid collection/possible abscess vs biloma and calcification within the collection would could represent a retained gallstone. The patient also had a transient mild spike in troponins, though there is no clinical evidence to suggest ACS, and troponenemia has resolved on follow-up troponins. The patient was made NPO and initiated on gentle IVF as she does have evidence of elevated pro-BNP without signs of clinical CHF. The patient does have clinical evidence of atelectasis. Her [place] [facility] [place], at which point no beds were available and transfer was declined. Today, she was accepted in transfer to [facility] [place] by Dr Bella with GI seeing the patient in consultation for a possible IR drain and/or surgical intervention for her complicated pancreatitis. She is on imipenem/cilastin empirically. She is stable for transfer and is in agreement with transfer. We appreciate assistance of [facility] [place] in the care of this patient and wish her well. Care for patient and completion of transfer paperwork on day of transfer took 60 minutes. For list of inpatient medications, please see MAR. The list below reflects the patient's outpatient medications. Home Meds and New Rx's Prescriptions: No Action metoprolol succinate 50 mg tablet extended release 24 hr 50 mg PO DAILY Qty: 90 RF: 3 nitroglycerin 0.4 mg tablet, sublingual 0.4 mg SL Q5M PRN (Reason: chest pain) Qty: 100 RF: 0 polyethylene glycol 3350 [Miralax] 17 gram/dose powder 8.5 g PO BID PRN (Reason: constipation) Qty: 510 RF: 6 neuropaway 2 tab PO TID RF: 0 (DME) lancets [BD Ultra Fine Lancets] 33 gauge misc See Rx Instructions .ROUTE .MEDSUPPLY Qty: 200 RF: 5 (DME) FreeStyle Lite Strips Strip See Rx Instructions .ROUTE .MEDSUPPLY Qty: 200 RF: 5 gabapentin 100 mg capsule See Rx Instructions PO .COMPLEX Qty: 150 RF: 0 duloxetine 30 mg capsule,delayed release(DR/EC) 30 mg PO DAILY 30 Days Qty: 30 RF: 5 pantoprazole 40 mg tablet,delayed release (DR/EC) 40 mg PO DAILY Qty: 90 RF: 3 (DME) blood-glucose meter Misc See Rx Instructions .ROUTE .MEDSUPPLY Qty: 1 RF: 0 aspirin [Adult Aspirin Regimen] 81 mg tablet,delayed release (DR/EC) 81 mg PO DAILY RF: 0 clopidogrel 75 mg tablet 75 mg PO DAILY RF: 0 losartan 25 mg tablet 25 mg PO DAILY RF: 0 magnesium oxide 400 mg magnesium capsule 400 mg PO BID RF: 0 melatonin 3 mg tablet 6 mg PO HS PRNRF: 0 spironolactone 25 mg tablet 12.5 mg PO DAILY RF: 0 torsemide 20 mg tablet 20 mg PO BID RF: 0 trazodone 50 mg tablet 25 mg PO QHS PRNRF: 0 oxycodone 5 mg tablet 5 mg PO Q8H PRNRF: 0 Freestyle Lite Glucometer See Rx Instructions .ROUTE .COMPLEX Qty: 1 RF: 0 atorvastatin 40 mg tablet 40 mg PO HS RF: 0 acetaminophen 325 mg Tablet 650 mg PO Q4H PRN PRNRF: 0 calcium carbonate 500 mg calcium (1,250 mg) Tablet,Chewable 500 - 1,000 mg PO Q4H PRN PRNRF: 0 Discharge Instructions Referrals: [place] [place] - Asia Gil DO [Primary Care Provider] - Activity:: Activity as Tolerated Diet:: NPO Discharge Orders Discharge Orders: Discharge Order (Routine); Ordered 02/19/21 Ordered By: Lisa Hernandez DS: Summary Time Spent with Patient providing and/or coordinating discharge services: Greater than 30 minutes Status at Discharge Functional status at discharge: independent ambulation Overall status at discharge: patient is not back to baseline Mental Status: mental status grossly normal Speech and Movement: speech and movement normal Mood: congruent mood Affect: normal affect Exam Narrative Exam Narrative: General: Pleasant middle-aged female who is very uncomfortable, A&Ox3 HEENT: EOMI, MMM Heart: RRR, +KAYY Lungs: Diminished breath sounds at B bases Abdomen: soft, tender in RUQ, mildly distended Extremities: trace edema BLE's Psych Mental Status: mental status grossly normal Speech and Movement: speech and movement normal Mood: congruent mood Affect: normal affect DS: Data Vitals/I&O Vitals and I&O: Vital Signs Temperature 35.9 C L 02/19/21 08:30 Temperature Source Tympanic 02/19/21 03:40 Pulse 93 H 02/19/21 08:30 Pulse 84 02/19/21 11:10 Respiratory Rate 14 02/19/21 11:10 Respiratory Effort 02/19/21 08:30 Respiratory Depth Shallow 02/19/21 08:30 Respiratory Pattern Normal 02/19/21 08:30 Blood Pressure 121/52 L 02/19/21 08:01 Blood Pressure Mean 69 02/19/21 08:01 Blood Pressure Position Supine 02/18/21 22:20 Pulse Oximetry 92 02/19/21 11:10 Oxygen Delivery Method Room Air 02/18/21 22:20 Oxygen Flow Rate 0 02/18/21 22:20 Pain Level 0 02/19/21 09:01 Intake & Output 02/18/21 02/18/21 02/19/21 11:59 23:59 11:59 Intake Total 215 / 215 905 / 905 Output Total 575 / 575 Balance 215 / 215 330 / 330 Weight 72.4 kg 72.4 kg Intake: IV 215 / 215 905 / 905 Output: Urine 575 / 575 Other: Urine Color Yellow Urine Appearance Clear Urine Odor Normal Comment OOB voided on commode 200cc. Voiding Methods Bedside Commode Data Completed and Pending Completed studies during hospitalization [Text1]: CT abdomen/pelvis 02/18/21: 1. Compared to the CT scan of 02/04/2021 there has been resolution of the bilateral pleural effusions and since the laterally located perihepatic ascites. However, the previously described abnormal heterogeneous collection between the pancreatic head and right hepatic lobe as slightly increased in size. This large collection most probably represents combination of hematoma/abscess as well as possible bile leak/biloma. In addition, there is a focal calcification within this collection and probably represents residual gallstone associated with the recent cholecystectomy. 2. There is a 1.11.0 cm well-defined hyperdense right renal lesion in the lateral cortex which may represent a benign hyperdense cyst but cannot exclude small neoplasm or oncocytoma. Recommend follow-up renal ultrasound as next step for this right renal finding. 3. Some streaking is seen around the appendix which is most probably related to the lower aspect of the abnormal collection described above and less likely related to acute appendicitis. 4. Sigmoid diverticulosis. No obvious acute diverticulitis. Labs on day of discharge: Labs from last 24 hours 02/19/21 02/19/21 02/19/21 12:00 06:25 06:25 WBC RBC Hgb Pending Hct Pending MCV MCH MCHC RDW Plt Count MPV Immature Gran % Neutrophils % Lymphocytes % Monocytes % Eosinophils % Basophils % Nucleated RBC % Absolute Neutrophils Absolute Lymphocytes Absolute Monocytes Absolute Eosinophils Absolute Basophils RBC Morphology PT INR APTT Sodium Potassium Chloride Carbon Dioxide Anion Gap BUN Creatinine Estimated GFR/1.73 m2 Glucose Calcium Magnesium Iron 11 L TIBC 202 L Transferrin % Sat 5 L Ferritin Total Bilirubin AST ALT Alkaline Phosphatase Troponin I C-Reactive Protein NT-Pro-B Natriuret Pep Total Protein Albumin Lipase Procalcitonin 0.9 Ethyl Alcohol COVID-19 Source SARS-CoV-2 (PCR) 02/19/21 02/19/21 02/19/21 06:25 06:25 00:34 WBC 19.18 H RBC 2.59 L Hgb 7.6 L Hct 24.7 L MCV 95.4 H MCH 29.3 MCHC 30.8 L RDW 14.6 Plt Count 377 MPV 10.6 Immature Gran % 0.6 Neutrophils % 76.5 Lymphocytes % 15.3 Monocytes % 6.8 Eosinophils % 0.4 Basophils % 0.4 Nucleated RBC % 0 Absolute Neutrophils 14.67 H Absolute Lymphocytes 2.93 Absolute Monocytes 1.30 H Absolute Eosinophils 0.08 Absolute Basophils 0.08 RBC Morphology PT INR APTT Sodium 136 Potassium 4.9 Chloride 100 Carbon Dioxide 28.2 Anion Gap 7.8 BUN 32 H Creatinine 1.8 H Estimated GFR/1.73 m2 28.07 Glucose 149 H Calcium 9.3 Magnesium Iron TIBC Transferrin % Sat Ferritin 463 H Total Bilirubin 0.6 AST 32 ALT 32 Alkaline Phosphatase 292 H Troponin I < 0.05 < 0.05 C-Reactive Protein 18.70 H NT-Pro-B Natriuret Pep Total Protein 8.4 H Albumin 2.0 L Lipase Procalcitonin Ethyl Alcohol COVID-19 Source SARS-CoV-2 (PCR) 02/18/21 02/18/21 02/18/21 22:00 21:54 20:30 WBC RBC Hgb Hct MCV MCH MCHC RDW Plt Count MPV Immature Gran % Neutrophils % Lymphocytes % Monocytes % Eosinophils % Basophils % Nucleated RBC % Absolute Neutrophils Absolute Lymphocytes Absolute Monocytes Absolute Eosinophils Absolute Basophils RBC Morphology PT INR APTT Sodium Potassium Chloride Carbon Dioxide Anion Gap BUN Creatinine Estimated GFR/1.73 m2 Glucose Calcium Magnesium 2.0 Iron TIBC Transferrin % Sat Ferritin Total Bilirubin AST ALT Alkaline Phosphatase Troponin I Cancelled C-Reactive Protein NT-Pro-B Natriuret Pep Total Protein Albumin Lipase Procalcitonin Ethyl Alcohol COVID-19 Source Nasopharyx SARS-CoV-2 (PCR) Negative 02/18/21 02/18/21 02/18/21 20:30 17:10 17:10 WBC RBC Hgb Hct MCV MCH MCHC RDW Plt Count MPV Immature Gran % Neutrophils % Lymphocytes % Monocytes % Eosinophils % Basophils % Nucleated RBC % Absolute Neutrophils Absolute Lymphocytes Absolute Monocytes Absolute Eosinophils Absolute Basophils RBC Morphology PT 11.2 H INR 1.1 APTT 25.0 Sodium Potassium Chloride Carbon Dioxide Anion Gap BUN Creatinine Estimated GFR/1.73 m2 Glucose Calcium Magnesium Iron TIBC Transferrin % Sat Ferritin Total Bilirubin AST ALT Alkaline Phosphatase Troponin I 0.09 H* < 0.05 C-Reactive Protein NT-Pro-B Natriuret Pep 2600 H Total Protein Albumin Lipase Procalcitonin Ethyl Alcohol COVID-19 Source SARS-CoV-2 (PCR) 02/18/21 02/18/21 02/18/21 17:10 17:05 17:05 WBC 20.09 H RBC 2.77 L Hgb 8.4 L Hct 26.7 L MCV 96.4 H MCH 30.3 MCHC 31.5 L RDW 14.6 Plt Count 432 H D MPV 10.4 Immature Gran % 0.6 Neutrophils % 75.5 Lymphocytes % 16.6 Monocytes % 6.2 Eosinophils % 0.8 Basophils % 0.3 Nucleated RBC % 0 Absolute Neutrophils 15.17 H Absolute Lymphocytes 3.33 Absolute Monocytes 1.25 H Absolute Eosinophils 0.16 Absolute Basophils 0.06 RBC Morphology Normal PT INR APTT Sodium 135 L Potassium 4.9 Chloride 97 L Carbon Dioxide 29.3 Anion Gap 8.7 BUN 31 H Creatinine 1.9 H Estimated GFR/1.73 m2 26.37 Glucose 182 H Calcium 9.9 Magnesium Iron TIBC Transferrin % Sat Ferritin Total Bilirubin 0.4 AST 41 H ALT 38 Alkaline Phosphatase 355 H Troponin I C-Reactive Protein NT-Pro-B Natriuret Pep Total Protein 9.4 H Albumin 2.3 L Lipase 190 Procalcitonin Ethyl Alcohol < 3.0 COVID-19 Source SARS-CoV-2 (PCR) [facility] Medical History Anemia Anxiety Chronic pain disorder Hx Lyrica, Gabapentin, Opioids, Tramadol. D/C'd with mixed pain symptoms. Ortho surgery helped (2019). MJ helping. Daytime somnolence Diabetic neuropathy a. Bilateral. Esophageal stricture Foot pain, bilateral Presumed neuropathy, but Hx SURG and nerve blocks .. original Dx? GERD (gastroesophageal reflux disease) History of transient ischemic attack 2004 History of umbilical hernia Hyperlipidemia Hypertension Insomnia Medical marijuana use Nonalcoholic steatohepatitis Restless leg syndrome Doubting this Dx, 05/2020 Sinus tachycardia Snoring Stressful life event affecting family Bro (had been in rehab, s/p ICU in 05/2020).. Tubular adenoma (03/20/16) Surgical History Arthroplasty of knee Cholecystectomy Endometrial Ablation H/O esophagogastroduodenoscopy (~12/25/20) Hx of colonoscopy (~12/25/20) 2020-Tubular adenomas x10 Oophrectomy, Left Repair of umbilical hernia with mesh Repair, Tendon or Muscle Achilles Family History Mother Diabetes Father Heart disease Substance abuse Brother Substance abuse Depression Heart disease Social History Smoking/Tobacco Use Status: Never Smoking risk assessment performed?: Yes Alcohol Intake: current Alcohol Intake frequency: holidays/special occasions only Drug use: Occasionally Substance use type: marijuana Details: smoked small amount evening 12/24/20 for nausea Adopted: No Caregiver/Support person: No Foster care: No Household members: none Housing: house Do you need help understanding health information?: Rarely current occupation: [employer] Sexually active: No Do you think of yourself as: straight/heterosexual Current gender identity: female Do you feel safe at home: Yes Do you feel safe in your relationship?: Yes Additional Social history: lives alone
[2021-02-19 12:59] LABS: HGB 7.5 g/dL (11.2-15.7)
[2021-02-19] MEDS: Gabapentin 100 MG CAP PO (13:00)
--- NOTE | 2021-02-19 13:30 | RT.EKG_ITS ---
APPROVED REPORT Exam: Resting ECG Reason for Exam: elevated troponin Patient Location: I HR:85 bpm ECG Measurements Heart Rate 85 AXIS MI 214 P 35 QRSd 87 QRS 0 QT 386 T 173 QTc 460 Conclusion Sinus rhythm...normal P axis, V-rate 60- 99 Borderline prolonged MI interval...MI >212, V-rate 50- 90 Abnormal T, consider ischemia, diffuse leads...T <-0.20mV, ant/lat/inf
--- NOTE | 2021-02-19 15:46 | CHAPLAIN ---
Toyin was resting in bed when I visited. She is being transferred to [facility] sometime today. 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 Toyin was hospitalized at [facility] on January 17 for a two hour procedure and has been in the hospital since then except for a few days at home. Most recently she was home for 5 days before coming to the ED. She is dealing cardiac issues and concerns about her pancreas. Toyin previously was a member of the [facility] [employer] and gave me permission to let her locomotive engineer electric, Rev. Deja Gomez know that Toyin is going to [facility] today. Toyin has a daughter that lives in [place] and another one out of [facility]. Her local daughter has not been vaccinated so she will not be able to visit Toyin at [facility] or here. I offered to call all source collection manager at [facility] and ask someone to visit Toyin and she said that would be okay.
[2021-02-19] MEDS: Acetaminophen 325 MG TAB 650 MG PO (16:00)
[2021-02-19] MEDS: Normal Saline 1,000 ML 75 ML IV (16:38)
== END 2021-02-19 17:05 | disposition short-term general hospital (02) | DRG 439 ==
LOC: ER 21:45 → ICU 22:23
PROVIDERS: Internal Medicine; Admitting Provider Family Medicine; Emergency Provider Emergency Medicine; PCP Student in an Organized Health Care Education/Training Program; Visit Provider Family Medicine
DX: K85.80 Other acute pancreatitis without necrosis or infection (principal); J98.11 Atelectasis; J21.9 Acute bronchiolitis, unspecified; N18.4 Chronic kidney disease, stage 4 (severe); I50.32 Chronic diastolic (congestive) heart failure; N17.9 Acute kidney failure, unspecified; I13.0 Hypertensive heart and chronic kidney disease with heart failure and stage 1 through stage 4 chronic kidney disease, or unspecified chronic kidney disease; K86.89 Other specified diseases of pancreas; I25.10 Atherosclerotic heart disease of native coronary artery without angina pectoris; Z20.822 Contact with and (suspected) exposure to COVID-19; D50.9 Iron deficiency anemia, unspecified; E11.22 Type 2 diabetes mellitus with diabetic chronic kidney disease; G47.33 Obstructive sleep apnea (adult) (pediatric); E11.40 Type 2 diabetes mellitus with diabetic neuropathy, unspecified; E78.5 Hyperlipidemia, unspecified; K75.81 Nonalcoholic steatohepatitis (NASH); K21.9 Gastro-esophageal reflux disease without esophagitis; F41.9 Anxiety disorder, unspecified; G89.29 Other chronic pain; K22.2 Esophageal obstruction; G47.00 Insomnia, unspecified; G25.81 Restless legs syndrome
CPT/HCPCS: 36410; 36415; 80053; 83690; 84145; 87635; 93005; 96374; 96375; 96376; 99285; 74176; 80320; 82728; 83540; 83550; 83735; 83880; 84484; 85014; 85018; 85025; 85610; 85730; 86140; 93010; 94667; 99223; 99239; J0743; J1644; J2405; J2543

== ENCOUNTER 2021-04-03 03:48 | Outpatient (CLI) | payer OTHER, BC, SELFPAY ==
[2021-04-03 14:28] LABS: Abs Immature Grans 0.02 10^3/uL (0.0-0.06); Absolute Basophil Count 0.02 10^3/uL (0.0-0.2); Absolute Eosinophil Count 0.18 10^3/uL (0.0-0.7); Absolute Lymphocyte Count 3.02 10^3/uL (1.2-3.4); Absolute Monocyte Count 0.67 10^3/uL (0.1-0.8); Absolute Neutrophil Count 3.31 10^3/uL (1.2-6.7); Basophils % 0.3; Eosinophils % 2.5; HCT 29.5 % (36.0-46.0); HGB 9.2 g/dL (11.2-15.7); Immature Grans % 0.3; Lymphocytes % 41.8; MCH 30.6 pg (27.0-33.0); MCHC 31.2 % (32.0-36.0); MPV 9.6 fL (8.0-11.0); Monocytes % 9.3; Neutrophils % 45.8; Nucleated RBC 0 %; Platelet Count 211 10^3/uL (130-400); RBC 3.01 10^6/uL (3.93-5.22); RDW 14.6 % (11.7-14.6); RDW-SD 53.1 fL; WBC 7.22 10^3/uL (4.4-10.8)
[2021-04-03 15:46] LABS: ALT 24 U/L (14-59); AST 21 U/L (15-37); Albumin 2.9 g/dL (3.4-5.0); Alkaline Phosphatase 164 U/L (46-116); Anion Gap 10.2 mmol/L (3-11); BUN 38 mg/dL (7-18); Bilirubin, Total 0.3 mg/dL (0.2-1.0); CO2 26.8 mmol/L (21.0-32.0); CREATININE 1.6 mg/dL (0.55-1.02); Calcium 8.8 mg/dL (8.5-10.1); Calculated LDL 65 mg/dL (<100); Chloride 102 mmol/L (98-107); Cholesterol 149 mg/dL (<200); Estimated GFR 32.15 (mL/min/1.73m2); Glucose 127 mg/dL (74-106); HDL Cholesterol 36 mg/dL (40-60); Potassium 4.4 mmol/L (3.5-5.1); Sodium 139 mmol/L (136-145); Total Protein 8.2 g/dL (6.4-8.2); Triglyceride 243 mg/dL (<150)
[2021-04-03 15:57] LABS: Bilirubin, Direct 0.1 mg/dL (0.0-0.2); Creatine Kinase 22 U/L (26-192)
== END 2021-04-03 03:49 | disposition home or self-care (01) ==
LOC: LBO 03:48
PROVIDERS: PCP Student in an Organized Health Care Education/Training Program; Visit Provider Internal Medicine Cardiovascular Disease
DX: E78.5 Hyperlipidemia, unspecified (principal); I25.10 Atherosclerotic heart disease of native coronary artery without angina pectoris; E11.9 Type 2 diabetes mellitus without complications; N18.4 Chronic kidney disease, stage 4 (severe); D50.9 Iron deficiency anemia, unspecified
CPT/HCPCS: 36415; 80048; 80061; 80076; 82550; 85025

== ENCOUNTER 2021-04-07 12:32 | Emergency (ER) | payer OTHER, BC, SELFPAY ==
[2021-04-07 12:38] VITALS: BP 132/67; PULSE 96; RESP 18; TEMP 36; O2SAT 97
[2021-04-07 12:43] VITALS: RESP 18
--- NOTE | 2021-04-07 13:19 | ED.GENADUL_ITS ---
Discharge Plan Disposition Patient Disposition: HOME Condition: Stable Discharge Details Clinical Impression: Neuropathy, Medication refill Primary Care Provider: Asia Gil ED Provider: Zeke Walls Home Meds and New Rx's Prescriptions: Continued (DME) blood-glucose meter Kit See Rx Instructions .ROUTE .MEDSUPPLY Qty: 1 RF: 0 metoprolol succinate 50 mg tablet extended release 24 hr 50 mg PO DAILY Qty: 90 RF: 3 nitroglycerin 0.4 mg tablet, sublingual 0.4 mg SL Q5M PRN (Reason: chest pain) Qty: 100 RF: 0 polyethylene glycol 3350 [Miralax] 17 gram/dose powder 8.5 g PO BID PRN (Reason: constipation) Qty: 510 RF: 6 neuropaway 2 tab PO TID RF: 0 ondansetron HCl [Zofran] 4 mg tablet 4 mg PO Q8H PRN (Reason: nausea and vomiting) Qty: 30 RF: 1 duloxetine 30 mg capsule,delayed release(DR/EC) 30 mg PO DAILY 30 Days Qty: 30 RF: 5 pantoprazole 40 mg tablet,delayed release (DR/EC) 40 mg PO DAILY Qty: 90 RF: 3 aspirin [Adult Aspirin Regimen] 81 mg tablet,delayed release (DR/EC) 81 mg PO DAILY RF: 0 clopidogrel 75 mg tablet 75 mg PO DAILY RF: 0 magnesium oxide 400 mg magnesium capsule 400 mg PO BID RF: 0 melatonin 3 mg tablet 6 mg PO HS PRNRF: 0 trazodone 50 mg tablet 25 mg PO QHS PRNRF: 0 oxycodone 5 mg tablet 5 mg PO Q8H PRNRF: 0 metronidazole 500 mg tablet 500 mg PO TID RF: 0 torsemide 20 mg tablet 20 mg PO DAILY RF: 0 (DME) lancets 33 gauge misc See Rx Instructions .ROUTE .MEDSUPPLY Qty: 100 RF: 0 lisinopril 2.5 mg tablet 2.5 mg PO DAILY RF: 0 (DME) OneTouch Ultra Blue Test Strip Strip See Rx Instructions .ROUTE .MEDSUPPLY Qty: 50 RF: 2 (DME) lancets [OneTouch Delica Lancets] 30 gauge misc See Rx Instructions .ROUTE .MEDSUPPLY Qty: 100 RF: 2 gabapentin 100 mg capsule See Rx Instructions PO .COMPLEX Qty: 150 RF: 0 atorvastatin 40 mg tablet 40 mg PO HS RF: 0 acetaminophen 325 mg Tablet 650 mg PO Q4H PRN PRNRF: 0 calcium carbonate 500 mg calcium (1,250 mg) Tablet,Chewable 500 - 1,000 mg PO Q4H PRN PRNRF: 0 Discharge Instructions Instructions: Peripheral Neuropathy (ED) Additional Instructions: At this time you were given an oral dose here in the ER and sent home with 12 additional 100 mg tablets that you may take as directed over the next 2 days, then fill your prescription on the first as scheduled. Please follow the instructions given to you by your neurology team. Watch for new or worsening symptoms and return to the ER for any concerns. Medical Decision Making 65-year-old female, diabetic neuropathy, on gabapentin but ran out on Wednesday. Prescription is not due to be refilled until the first. Contacted her neurology team who recommended coming to the ER to see if we can supply her a 2-day supply. She will be given 200 mg p.o. now. I contacted our pharmacy team, will give a total of 12 tablets, she can take another 200 mg this evening, and her typical regimen of 200 in the morning, 100 in the afternoon, 200 in the evening over the next 2 days, will then fill her prescription on 10 April. Patient is comfortable this plan and has no additional questions or concerns. She is very grateful. She appears well, nontoxic, no clear signs of dehydration, and is neurologically intact. Medical Records Medical records reviewed: Yes I reviewed the patient's medical records. HPI General Mode of arrival: ambulatory . Date/Time Provider Initiated Documentation: 04/07/21 12:34 . Limitations to Documentation: no limitations . Information obtained by: patient . HPI Narrative: This is a 65-year-old female, past medical history that includes anemia, anxiety, chronic pain disorder, diabetic neuropathy, GERD, TIA, hypertension, restless leg syndrome, presenting to the ER requesting a medication refill. Patient states that she takes a total of 500 mg of gabapentin daily, 200 in the morning, 100 in the afternoon, 200 in the evening. Patient states that she believes that she needs more than this on a regular basis but this is what neurology prescribes, she uses it more than directed, and ran out of her gabapentin on Wednesday. She spoke with her neurology team today and they recommended coming to the ER to see if we can supply her with a 2-day supply until she can refill her prescription on Wednesday when her prescription is due. Patient reports bilateral lower extremity neuropathy, feeling nauseous, mild diarrhea since Wednesday. Patient reports that she has felt this way in the past when she has run out of her gabapentin. No additional questions or concerns at this time. Denies recent illness or trauma. Related Data Home Medications Medication Instructions Recorded Confirmed metoprolol succinate 50 mg 50 mg PO DAILY #90 tab 06/10/20 04/07/21 tablet,extended release 24 hr nitroglycerin 0.4 mg sublingual 0.4 mg SL Q5M PRN #100 tab 07/08/20 04/07/21 tablet polyethylene glycol 3350 17 8.5 g PO BID PRN #510 g 07/08/20 04/07/21 gram/dose oral powder duloxetine 30 mg capsule,delayed 30 mg PO DAILY 30 Days #30 cap 09/16/20 04/07/21 release pantoprazole 40 mg tablet,delayed 40 mg PO DAILY #90 tab-cap NS 10/23/20 04/07/21 release neuropaway 2 tab PO TID 11/07/20 03/02/21 atorvastatin 40 mg PO HS 12/25/20 04/07/21 acetaminophen 650 mg PO Q4H PRN PRN 01/28/21 04/07/21 calcium carbonate 500 - 1,000 mg PO Q4H PRN PRN 01/28/21 04/07/21 aspirin 81 mg tablet,delayed 81 mg PO DAILY 02/17/21 04/07/21 release clopidogrel 75 mg tablet 75 mg PO DAILY 02/17/21 04/07/21 magnesium oxide 400 mg PO BID 02/17/21 04/07/21 melatonin 3 mg tablet 6 mg PO HS PRN tab 02/17/21 04/07/21 oxycodone 5 mg tablet 5 mg PO Q8H PRN 02/17/21 04/07/21 trazodone 50 mg tablet 25 mg PO QHS PRN tab 02/17/21 04/07/21 metronidazole 500 mg tablet 500 mg PO TID 02/24/21 04/07/21 torsemide 20 mg tablet 20 mg PO DAILY 02/24/21 04/07/21 lancets 33 gauge #100 ea 02/27/21 03/02/21 ondansetron HCl 4 mg tablet 4 mg PO Q8H PRN #30 tab 02/27/21 04/07/21 lisinopril 2.5 mg tablet 2.5 mg PO DAILY 03/20/21 04/07/21 blood-glucose meter #1 ea 03/25/21 03/25/21 blood sugar diagnostic #50 ea 03/27/21 lancets 30 gauge #100 ea 03/27/21 gabapentin 100 mg capsule See Rx Instructions PO .COMPLEX 04/07/21 04/07/21 #150 cap Previous Rx's Medication Instructions Recorded metoprolol succinate 50 mg 50 mg PO DAILY #90 tab 06/10/20 tablet,extended release 24 hr nitroglycerin 0.4 mg sublingual 0.4 mg SL Q5M PRN #100 tab 07/08/20 tablet polyethylene glycol 3350 17 8.5 g PO BID PRN #510 g 07/08/20 gram/dose oral powder duloxetine 30 mg capsule,delayed 30 mg PO DAILY 30 Days #30 cap 09/16/20 release pantoprazole 40 mg tablet,delayed 40 mg PO DAILY #90 tab-cap NS 10/23/20 release ondansetron HCl 4 mg tablet 4 mg PO Q8H PRN #30 tab 02/27/21 blood-glucose meter #1 ea 03/25/21 blood sugar diagnostic #50 ea 03/27/21 lancets 30 gauge #100 ea 03/27/21 gabapentin 100 mg capsule See Rx Instructions PO .COMPLEX 04/07/21 #150 cap Allergies Allergy/AdvReac Type Severity Reaction Status Date / Time metoclopramide [From Reglan] Allergy Verified 03/25/21 10:03 pollen extracts Allergy Verified 03/25/21 10:03 propoxyphene HCl AdvReac Nausea Verified 03/25/21 10:03 [From Darvon] General Stated Complaint: GenMedical SHERIDAN: 3 Review of Systems Constitutional Constitutional: Denies fever(s) and Denies weakness Cardiovascular Cardiovascular: Denies chest pain Gastrointestinal Gastrointestinal: Denies abdominal pain, Reports diarrhea, Reports nausea and Denies vomiting Integumentary/Breasts Skin/Breast: Denies rash Neurologic Neurologic: Denies weakness and Reports other (Bilateral lower extremity) Psychiatric Psychiatric: Reports anxiety [facility] Medical History Anemia Anxiety Cholecystitis (~01/2021) Chronic pain disorder Hx Lyrica, Gabapentin, Opioids, Tramadol. D/C'd with mixed pain symptoms. Ortho surgery helped (2019). MJ helping. Daytime somnolence Diabetic neuropathy a. Bilateral. Esophageal stricture Foot pain, bilateral Presumed neuropathy, but Hx SURG and nerve blocks .. original Dx? GERD (gastroesophageal reflux disease) History of transient ischemic attack 2004 History of umbilical hernia Hyperlipidemia Hypertension Insomnia Medical marijuana use Nonalcoholic steatohepatitis Restless leg syndrome Doubting this Dx, 05/2020 Sinus tachycardia Snoring Stressful life event affecting family Bro (had been in rehab, s/p ICU in 05/2020).. Tubular adenoma (03/20/16) Surgical History Arthroplasty of knee Cholecystectomy (~2015) Endometrial Ablation H/O esophagogastroduodenoscopy (~12/25/20) History of cardiac cath (~02/07/21) [facility] [place]: 3 vessel dx (LAD,LCX,RCA) w/elevated LV EDP Hx of colonoscopy (~12/25/20) 2020-Tubular adenomas x10 Oophrectomy, Left Repair of umbilical hernia with mesh Repair, Tendon or Muscle Achilles Family History Mother Diabetes Father Heart disease Substance abuse Brother Substance abuse Depression Heart disease Social History Smoking/Tobacco Use Status: Never Smoking risk assessment performed?: Yes Alcohol Intake: current Alcohol Intake frequency: holidays/special occasions only Drug use: Occasionally Substance use type: marijuana Details: smoked small amount evening 12/24/20 for nausea Adopted: No Caregiver/Support person: No Foster care: No Household members: none Housing: house Do you need help understanding health information?: Rarely current occupation: [employer] Sexually active: No Do you think of yourself as: straight/heterosexual Current gender identity: female Do you feel safe at home: Yes Do you feel safe in your relationship?: Yes Additional Social history: lives alone Exam Const General: cooperative, healthy appearing, comfortable and anxious (Tearful) Orientation: alert, awake and oriented x3 HENMT Head: normal to inspection, normocephalic and atraumatic Face and sinus: normal facial exam Mouth: moist mucous membranes Eyes General: appearance normal, both eyes and all related structures Conjunctivae: conjunctivae normal Neck Neck: normal visual inspection, trachea midline and supple Resp Effort & Inspection: normal respiratory effort and able to speak in complete sentences Cardio Rate: regular rate Rhythm: regular rhythm GI Palpation: soft and nontender Skin General skin exam: no rashes or lesions noted Neuro General: patient alert, patient awake, moves all extremities and no focal motor deficits Cognition: normal cognition Speech: speech normal Gait: normal gait Motor: muscle tone normal throughout Sensory Exam: no sensory deficits noted Extrem General: normal to inspection, full ROM and capillary refill normal Psych Appearance: grossly normal Mental Status: mental status grossly normal Course Vital Signs Vital signs: Vital Signs Temperature 36 C L 04/07/21 12:38 Pulse 96 H 04/07/21 12:38 Respiratory Rate 18 04/07/21 12:38 Blood Pressure 132/67 04/07/21 12:38 Pulse Oximetry 97 04/07/21 12:38 Temperature 36 C L 04/07/21 12:38 Temperature Source Temporal Artery Scan 04/07/21 12:38 Pulse 96 H 04/07/21 12:38 Respiratory Rate 18 04/07/21 12:43 Respiratory Effort Non-Labored 04/07/21 12:43 Respiratory Depth Normal 04/07/21 12:43 Respiratory Pattern Normal 04/07/21 12:43 Blood Pressure 132/67 04/07/21 12:38 Blood Pressure Position Sitting 04/07/21 12:38 Pulse Oximetry 97 04/07/21 12:38 Oxygen Delivery Method Room Air 04/07/21 12:38 Oxygen Flow Rate 0 04/07/21 12:38 Pain Level 10 04/07/21 12:38
[2021-04-07] MEDS: Gabapentin 100 MG CAP 200 MG PO (13:30)
[2021-04-07 13:34] VITALS: BP 123/75; PULSE 86; RESP 18; O2SAT 100
== END 2021-04-07 13:39 | disposition home or self-care (01) ==
PROVIDERS: Emergency Provider Physician Assistant; PCP Student in an Organized Health Care Education/Training Program
DX: E11.41 Type 2 diabetes mellitus with diabetic mononeuropathy (principal); R11.0 Nausea; R19.7 Diarrhea, unspecified; Z76.0 Encounter for issue of repeat prescription
CPT/HCPCS: 99283

== ENCOUNTER 2021-05-02 15:23 | Emergency (ER) | payer SELFPAY ==
[2021-05-02 15:25] VITALS: BP 159/80; PULSE 85; RESP 16; TEMP 36.7; O2SAT 96
--- NOTE | 2021-05-02 15:25 | ED.GENADUL_ITS ---
Discharge Plan Disposition Patient Disposition: HOME Condition: Stable Discharge Details Clinical Impression: Skin tear of left upper extremity Primary Care Provider: Asia Gil ED Provider: Marcie Rodriguez Home Meds and New Rx's Prescriptions: Continued (DME) blood-glucose meter Kit See Rx Instructions .ROUTE .MEDSUPPLY Qty: 1 RF: 0 oxycodone 5 mg tablet 2.5 mg PO BID MDD 1 tablet PRN (Reason: severe foot pain) Qty: 10 RF: 0 gabapentin 100 mg capsule See Rx Instructions PO .COMPLEX Qty: 150 RF: 0 nitroglycerin 0.4 mg tablet, sublingual 0.4 mg SL Q5M PRN (Reason: chest pain) Qty: 100 RF: 0 polyethylene glycol 3350 [Miralax] 17 gram/dose powder 8.5 g PO BID PRN (Reason: constipation) Qty: 510 RF: 6 neuropaway 2 tab PO TID RF: 0 ondansetron HCl [Zofran] 4 mg tablet 4 mg PO Q8H PRN (Reason: nausea and vomiting) Qty: 30 RF: 1 Lantus Solostar U-100 Insulin 100 unit/mL (3 mL) insulin pen 10 unit subcut QAM MDD 10 units daily Qty: 15 RF: 0 (DME) pen needle, diabetic [BD Ultra-Fine Dionna Pen Needle] 32 gauge x 5/32 needle See Rx Instructions .ROUTE .MEDSUPPLY Qty: 100 RF: 0 pantoprazole 40 mg tablet,delayed release (DR/EC) 40 mg PO DAILY Qty: 90 RF: 3 magnesium oxide 400 mg magnesium capsule 400 mg PO BID RF: 0 melatonin 3 mg tablet 6 mg PO HS PRNRF: 0 trazodone 50 mg tablet 25 mg PO QHS PRNRF: 0 Hold Instructions: Home Medication placed on hold at Doctor's office (DME) lancets 33 gauge misc See Rx Instructions .ROUTE .MEDSUPPLY Qty: 100 RF: 0 lisinopril 2.5 mg tablet 2.5 mg PO DAILY RF: 0 (DME) OneTouch Ultra Blue Test Strip Strip See Rx Instructions .ROUTE .MEDSUPPLY Qty: 50 RF: 2 (DME) lancets [OneTouch Delica Lancets] 30 gauge misc See Rx Instructions .ROUTE .MEDSUPPLY Qty: 100 RF: 2 aspirin [Adult Aspirin Regimen] 81 mg tablet,delayed release (DR/EC) 81 mg PO DAILY RF: 0 clopidogrel 75 mg tablet 75 mg PO DAILY RF: 0 duloxetine 30 mg capsule,delayed release(DR/EC) 30 mg PO DAILY 30 Days Qty: 30 RF: 5 metoprolol succinate 50 mg tablet extended release 24 hr 50 mg PO DAILY Qty: 90 RF: 3 torsemide 20 mg tablet 10 mg PO DAILY RF: 0 atorvastatin 40 mg tablet 40 mg PO HS RF: 0 acetaminophen 325 mg Tablet 650 mg PO Q4H PRN PRNRF: 0 calcium carbonate 500 mg calcium (1,250 mg) Tablet,Chewable 500 - 1,000 mg PO Q4H PRN PRNRF: 0 Discharge Instructions Instructions: Skin Adhesive Care (ED), Skin Tear (ED) Additional Instructions: Keep wound clean and dry. Do not apply any adhesive over the wound as it will pull off the glue prematurely. Do not soak the wound or apply ointment over the wound. Do not remove the Dermabond glue. Let it fall off naturally as the wound underneath heals. You can take a shower but do not soak the area. Pat the area dry if it becomes wet. If the wound begins to rebleed, apply a pressure dressing with gauze wrapped tightly around the area. If you are unable to control bleeding, return to the emergency department. Follow-up with your primary care doctor as needed. Discharge Data Discharge Date/Time-TO BE ENTERED AT DEPARTURE: 05/02/21 16:24 Discharge Physician: Marcie Rodriguez Medical Decision Making 66 year-old female presents with a skin tear to her left dorsal forearm cheyanne tained on the sharp edge of a metal shelf this morning. There is a 4 mm V-shaped skin tear noted to her left dorsal forearm. 2 butterfly Steri-Strips in place over wound with mild oozing around this area. The Steri-Strips were removed and the area was cleaned with chlorhexidine scrub and saline. The area was dried and Dermabond glue applied to skin tear. Patient was monitored for approximately 15 minutes after with no return of bleeding. Patient advised of proper wound care of Dermabond. Usual and customary return precautions given prior to discharge. Medical Records Medical records reviewed: Yes I reviewed the patient's medical records. HPI General Mode of arrival: ambulatory . Date/Time Provider Initiated Documentation: 05/02/21 15:24 . Limitations to Documentation: no limitations . Information obtained by: patient . HPI Narrative: Patient is a 66-year-old female who presents to the ED with complaint of laceration to her left forearm sustained when lifting her left forearm up and scraping it on a metal shelf at a store prior to arrival. Patient states she cleaned the area immediately with peroxide and placed a bandage. She states the area continued to bleed so she placed butterfly steri strips to the area but there is continued oozing of blood through this. Tetanus up-to-date 2016. Related Data Home Medications Medication Instructions Recorded Confirmed nitroglycerin 0.4 mg sublingual 0.4 mg SL Q5M PRN #100 tab 07/08/20 05/02/21 tablet polyethylene glycol 3350 17 8.5 g PO BID PRN #510 g 07/08/20 05/02/21 gram/dose oral powder pantoprazole 40 mg tablet,delayed 40 mg PO DAILY #90 tab-cap NS 10/23/20 05/02/21 release neuropaway 2 tab PO TID 11/07/20 05/02/21 atorvastatin 40 mg PO HS 12/25/20 05/02/21 acetaminophen 650 mg PO Q4H PRN PRN 01/28/21 05/02/21 calcium carbonate 500 - 1,000 mg PO Q4H PRN PRN 01/28/21 05/02/21 magnesium oxide 400 mg PO BID 02/17/21 05/02/21 melatonin 3 mg tablet 6 mg PO HS PRN tab 02/17/21 05/02/21 trazodone 50 mg tablet 25 mg PO QHS PRN tab 02/17/21 05/02/21 lancets 33 gauge #100 ea 02/27/21 05/02/21 ondansetron HCl 4 mg tablet 4 mg PO Q8H PRN #30 tab 02/27/21 05/02/21 lisinopril 2.5 mg tablet 2.5 mg PO DAILY 03/20/21 05/02/21 blood-glucose meter #1 ea 03/25/21 05/02/21 blood sugar diagnostic #50 ea 03/27/21 05/02/21 lancets 30 gauge #100 ea 03/27/21 05/02/21 aspirin 81 mg tablet,delayed 81 mg PO DAILY 04/16/21 05/02/21 release clopidogrel 75 mg tablet 75 mg PO DAILY 04/16/21 05/02/21 duloxetine 30 mg capsule,delayed 30 mg PO DAILY 30 Days #30 cap 04/21/21 05/02/21 release metoprolol succinate 50 mg 50 mg PO DAILY #90 tab 04/22/21 05/02/21 tablet,extended release 24 hr insulin glargine 100 unit/mL (3 10 unit SUBCUT QAM #15 ml MDD 10 04/23/21 05/02/21 mL) subcutaneous pen units daily pen needle, diabetic 32 gauge x #100 ea 04/23/21 05/02/21 torsemide 20 mg tablet 10 mg PO DAILY tab 04/23/21 05/02/21 gabapentin 100 mg capsule See Rx Instructions PO .COMPLEX 05/01/21 05/02/21 #150 cap oxycodone 5 mg tablet 2.5 mg PO BID PRN #10 tab MDD 1 05/01/21 05/02/21 tablet Previous Rx's Medication Instructions Recorded nitroglycerin 0.4 mg sublingual 0.4 mg SL Q5M PRN #100 tab 07/08/20 tablet polyethylene glycol 3350 17 8.5 g PO BID PRN #510 g 07/08/20 gram/dose oral powder pantoprazole 40 mg tablet,delayed 40 mg PO DAILY #90 tab-cap NS 10/23/20 release ondansetron HCl 4 mg tablet 4 mg PO Q8H PRN #30 tab 02/27/21 blood-glucose meter #1 ea 03/25/21 blood sugar diagnostic #50 ea 03/27/21 lancets 30 gauge #100 ea 03/27/21 duloxetine 30 mg capsule,delayed 30 mg PO DAILY 30 Days #30 cap 04/21/21 release metoprolol succinate 50 mg 50 mg PO DAILY #90 tab 04/22/21 tablet,extended release 24 hr insulin glargine 100 unit/mL (3 10 unit SUBCUT QAM #15 ml MDD 10 04/23/21 mL) subcutaneous pen units daily pen needle, diabetic 32 gauge x #100 ea 04/23/21 5 gabapentin 100 mg capsule See Rx Instructions PO .COMPLEX 05/01/21 #150 cap oxycodone 5 mg tablet 2.5 mg PO BID PRN #10 tab MDD 1 05/01/21 tablet Allergies Allergy/AdvReac Type Severity Reaction Status Date / Time metoclopramide [From Reglan] Allergy Verified 05/02/21 15:34 pollen extracts Allergy Verified 05/02/21 15:34 propoxyphene HCl AdvReac Nausea Verified 05/02/21 15:34 [From Darvon] General SHERIDAN: 3 Review of Systems All systems reviewed & are unremarkable except as noted in HPI and below PFSH Medical History (Updated 05/02/21 @ 16:16 by Marcie Rodriguez DO) Anemia Anxiety Cholecystitis (~01/2021) Chronic pain disorder Hx Lyrica, Gabapentin, Opioids, Tramadol. D/C'd with mixed pain symptoms. Ortho surgery helped (2019). MJ helping. Cold feet Daytime somnolence Diabetic neuropathy a. Bilateral. Esophageal stricture Foot pain, bilateral Presumed neuropathy, but Hx SURG and nerve blocks .. original Dx? GERD (gastroesophageal reflux disease) History of transient ischemic attack 2004 History of umbilical hernia Hyperlipidemia Hypertension Insomnia Medical marijuana use Nonalcoholic steatohepatitis Restless leg syndrome Doubting this Dx, 05/2020 Sinus tachycardia Snoring Stressful life event affecting family Bro (had been in rehab, s/p ICU in 05/2020).. Tubular adenoma (03/20/16) Surgical History Arthroplasty of knee Cholecystectomy (~2015) Endometrial Ablation H/O esophagogastroduodenoscopy (~12/25/20) History of cardiac cath (~02/07/21) [facility] [place]: 3 vessel dx (LAD,LCX,RCA) w/elevated LV EDP Hx of colonoscopy (~12/25/20) 2020-Tubular adenomas x10 Oophrectomy, Left Repair of umbilical hernia with mesh Repair, Tendon or Muscle Achilles Family History Mother Diabetes Father Heart disease Substance abuse Brother Substance abuse Depression Heart disease Social History Smoking/Tobacco Use Status: Never Smoking risk assessment performed?: Yes Alcohol Intake: former Drug use: Occasionally Substance use type: marijuana Details: smoked small amount evening 12/24/20 for nausea Adopted: No Caregiver/Support person: No Foster care: No Household members: none Housing: house Do you need help understanding health information?: Rarely current occupation: [employer] Sexually active: No Do you think of yourself as: straight/heterosexual Current gender identity: female Do you feel safe at home: Yes Do you feel safe in your relationship?: Yes Additional Social history: lives alone Exam Const General: cooperative, healthy appearing and no acute distress HENMT Head: normal to inspection Mouth: oral mucosae normal Eyes General: appearance normal, both eyes and all related structures Neck Neck: normal visual inspection Resp Effort & Inspection: normal respiratory effort and able to speak in complete sentences Cardio Rate: regular rate Skin General skin exam: no rashes or lesions noted Neuro General: patient alert, patient awake and patient oriented x3 Motor: muscle tone normal throughout Extrem General: full ROM Elbow/forearm/wrist images: 1. 4mm v-shaped skin tear on dorsal aspect of L mid forearm. There are Steri- Strips placed crisscross over each other over the skin tear with mild oozing of blood below this area. No pulsatile bleeding. No bony deformity or injury. Psych Appearance: grossly normal Affect: normal affect Procedures Laceration Laceration 1: Side (If applicable): left and right Size (cm): 0.4 Description: other (skin tear) Depth: simple, single layer Pre-repair: wound explored, irrigated extensively and deep structures intact Skin layer closed with: other (glue)
== END 2021-05-02 16:24 | disposition home or self-care (01) ==
PROVIDERS: Emergency Provider Physician Assistant; PCP Student in an Organized Health Care Education/Training Program
DX: S51.812A Laceration without foreign body of left forearm, initial encounter (principal); W26.8XXA Contact with other sharp object(s), not elsewhere classified, initial encounter
CPT/HCPCS: 12001

== ENCOUNTER 2021-05-09 10:00 | Outpatient (RCR) | payer OTHER, BC, SELFPAY | END 2021-05-10 23:59 | disposition home or self-care (01) | LOC: CR 10:00 | PROVIDERS: PCP Student in an Organized Health Care Education/Training Program; Visit Provider Family Medicine | DX: Z51.89 Encounter for other specified aftercare (principal); I25.2 Old myocardial infarction; Z95.5 Presence of coronary angioplasty implant and graft | CPT/HCPCS: S9472 ==

== ENCOUNTER 2021-05-12 10:14 | Observation (INO) | payer OTHER, BC, SELFPAY ==
[2021-05-12] VITALS (51 sets, daily range): BP systolic 115–161; BP diastolic 43–95; PULSE 54–108; RESP 11–20; TEMP 36.4–37.1; O2SAT 92–99
--- NOTE | 2021-05-12 10:15 | RT.EKG_ITS ---
APPROVED REPORT Exam: Resting ECG Reason for Exam: chest pain Patient Location: E HR:63 bpm ECG Measurements Heart Rate 63 AXIS [place] 215 P -8 QRSd 86 QRS 5 QT 413 T 73 QTc 423 Conclusion Sinus rhythm...normal P axis, V-rate 60- 99 Borderline prolonged KY interval...KY >212, V-rate 50- 90 No STEMI, non-diagnostic EKG I have reviewed and interpreted ECG and agree with software generated interpretation.
--- NOTE | 2021-05-12 10:45 | ED.GENADUL_ITS ---
Discharge Plan Discharge Details Chief Complaint: Chest Pain Primary Care Provider: Asia Gil ED Provider: Lalitha Macias Home Meds and New Rx's Prescriptions: No Action (DME) blood-glucose meter Kit See Rx Instructions .ROUTE .MEDSUPPLY Qty: 1 RF: 0 oxycodone 5 mg tablet 2.5 mg PO BID MDD 1 tablet PRN (Reason: severe foot pain) Qty: 10 RF: 0 gabapentin 100 mg capsule See Rx Instructions PO .COMPLEX Qty: 150 RF: 0 nitroglycerin 0.4 mg tablet, sublingual 0.4 mg SL Q5M PRN (Reason: chest pain) Qty: 100 RF: 0 polyethylene glycol 3350 [Miralax] 17 gram/dose powder 8.5 g PO BID PRN (Reason: constipation) Qty: 510 RF: 6 neuropaway 2 tab PO TID RF: 0 ondansetron HCl [Zofran] 4 mg tablet 4 mg PO Q8H PRN (Reason: nausea and vomiting) Qty: 30 RF: 1 Lantus Solostar U-100 Insulin 100 unit/mL (3 mL) insulin pen 10 unit subcut QAM MDD 10 units daily Qty: 15 RF: 0 (DME) pen needle, diabetic [BD Ultra-Fine Dionna Pen Needle] 32 gauge x 5/32 needle See Rx Instructions .ROUTE .MEDSUPPLY Qty: 100 RF: 0 pantoprazole 40 mg tablet,delayed release (DR/EC) 40 mg PO DAILY Qty: 90 RF: 3 magnesium oxide 400 mg magnesium capsule 400 mg PO BID RF: 0 melatonin 3 mg tablet 6 mg PO HS PRNRF: 0 trazodone 50 mg tablet 25 mg PO QHS PRNRF: 0 Hold Instructions: Home Medication placed on hold at Doctor's office (DME) lancets 33 gauge misc See Rx Instructions .ROUTE .MEDSUPPLY Qty: 100 RF: 0 lisinopril 2.5 mg tablet 2.5 mg PO DAILY RF: 0 (DME) OneTouch Ultra Blue Test Strip Strip See Rx Instructions .ROUTE .MEDSUPPLY Qty: 50 RF: 2 (DME) lancets [OneTouch Delica Lancets] 30 gauge misc See Rx Instructions .ROUTE .MEDSUPPLY Qty: 100 RF: 2 aspirin [Adult Aspirin Regimen] 81 mg tablet,delayed release (DR/EC) 81 mg PO DAILY RF: 0 clopidogrel 75 mg tablet 75 mg PO DAILY RF: 0 duloxetine 30 mg capsule,delayed release(DR/EC) 30 mg PO DAILY 30 Days Qty: 30 RF: 5 metoprolol succinate 50 mg tablet extended release 24 hr 50 mg PO DAILY Qty: 90 RF: 3 torsemide 20 mg tablet 10 mg PO DAILY RF: 0 atorvastatin 40 mg tablet 40 mg PO HS RF: 0 acetaminophen 325 mg Tablet 650 mg PO Q4H PRN PRNRF: 0 calcium carbonate 500 mg calcium (1,250 mg) Tablet,Chewable 500 - 1,000 mg PO Q4H PRN PRNRF: 0 Medical Decision Making This patient is alert and oriented, she is having intermittent discomfort in her chest She denies any current shortness of breath at rest Initial EKG does not show acute abnormality, initial troponin is negative BNP of 1100, improved from prior Hemoglobin hematocrit improved per patient No hypoxia, tachypnea, tachycardia Initially my plan was to perform CTA as patient is having chest pain post cardiac catheterization, however creatinine is 1.8 and GFR 27 She has quite stable and I have lower suspicion for PE, however I did run the case by Tiffanie Colvin, cardiology at [facility] and at this time we will hold on CTA performed chest x-ray and admit the patient for suspected unstable angina The attempt was made to transfer patient directly to [facility], however given capacity status post fall, patient will need to be admitted overnight here and has been accepted tomorrow in transfer by Dr. Zimmer Patient received aspirin initially upon arrival I will heparinize patient at this time Blood pressure has been stable Case discussed with Dr. Celeste, will admit patient HPI General Mode of arrival: ambulatory . Date/Time Provider Initiated Documentation: 05/12/21 10:22 . Limitations to Documentation: no limitations . Information obtained by: patient . HPI Narrative: this 66-year-old female with complex history consistent with CHF, chronic kidney disease, pancreatitis, cholecystitis, coronary artery disease, cerebrovascular disease. Patient presents with chest pressure that been persistent since she had stent placement of her LAD at [facility] in April on the second specifically. She is taking all her medications as instructed. She states that she has been short of breath with exertion and at rest. She states she feels breathless. She denies any weight gain. She states her symptoms are gradually worsening. She is taking between 2 and 4 nitro a day to help with the sensation. She states it feels like there is pressure on her neck and in her left chest. She did take aspirin this morning, just 81 mg. She denies any current nausea but has been intermittently nauseous. She denies vomiting. She denies radiation through to her back or any abdominal pain. Her symptoms are exacerbated with exertion. She does have some at rest as well. She states that the pain occasionally is worse when she takes a deep breath. Related Data Home Medications Medication Instructions Recorded Confirmed nitroglycerin 0.4 mg sublingual 0.4 mg SL Q5M PRN #100 tab 07/08/20 05/12/21 tablet polyethylene glycol 3350 17 8.5 g PO BID PRN #510 g 07/08/20 05/12/21 gram/dose oral powder pantoprazole 40 mg tablet,delayed 40 mg PO DAILY #90 tab-cap NS 10/23/20 05/12/21 release neuropaway 2 tab PO TID 11/07/20 05/12/21 atorvastatin 40 mg PO HS 12/25/20 05/12/21 acetaminophen 650 mg PO Q4H PRN PRN 01/28/21 05/12/21 calcium carbonate 500 - 1,000 mg PO Q4H PRN PRN 01/28/21 05/12/21 magnesium oxide 400 mg PO BID 02/17/21 05/12/21 melatonin 3 mg tablet 6 mg PO HS PRN tab 02/17/21 05/12/21 trazodone 50 mg tablet 25 mg PO QHS PRN tab 02/17/21 05/12/21 lancets 33 gauge #100 ea 02/27/21 05/12/21 ondansetron HCl 4 mg tablet 4 mg PO Q8H PRN #30 tab 02/27/21 05/12/21 lisinopril 2.5 mg tablet 2.5 mg PO DAILY 03/20/21 05/12/21 blood-glucose meter #1 ea 03/25/21 05/12/21 blood sugar diagnostic #50 ea 03/27/21 05/12/21 lancets 30 gauge #100 ea 03/27/21 05/12/21 aspirin 81 mg tablet,delayed 81 mg PO DAILY 04/16/21 05/12/21 release clopidogrel 75 mg tablet 75 mg PO DAILY 04/16/21 05/12/21 duloxetine 30 mg capsule,delayed 30 mg PO DAILY 30 Days #30 cap 04/21/21 05/12/21 release metoprolol succinate 50 mg 50 mg PO DAILY #90 tab 04/22/21 05/12/21 tablet,extended release 24 hr insulin glargine 100 unit/mL (3 10 unit SUBCUT QAM #15 ml MDD 10 04/23/21 05/12/21 mL) subcutaneous pen units daily pen needle, diabetic 32 gauge x #100 ea 04/23/21 05/12/21 torsemide 20 mg tablet 10 mg PO DAILY tab 04/23/21 05/12/21 gabapentin 100 mg capsule See Rx Instructions PO .COMPLEX 05/01/21 05/12/21 #150 cap oxycodone 5 mg tablet 2.5 mg PO BID PRN #10 tab MDD 1 05/01/21 05/12/21 tablet Previous Rx's Medication Instructions Recorded nitroglycerin 0.4 mg sublingual 0.4 mg SL Q5M PRN #100 tab 07/08/20 tablet polyethylene glycol 3350 17 8.5 g PO BID PRN #510 g 07/08/20 gram/dose oral powder pantoprazole 40 mg tablet,delayed 40 mg PO DAILY #90 tab-cap NS 10/23/20 release ondansetron HCl 4 mg tablet 4 mg PO Q8H PRN #30 tab 02/27/21 blood-glucose meter #1 ea 03/25/21 blood sugar diagnostic #50 ea 03/27/21 lancets 30 gauge #100 ea 03/27/21 duloxetine 30 mg capsule,delayed 30 mg PO DAILY 30 Days #30 cap 04/21/21 release metoprolol succinate 50 mg 50 mg PO DAILY #90 tab 04/22/21 tablet,extended release 24 hr insulin glargine 100 unit/mL (3 10 unit SUBCUT QAM #15 ml MDD 10 04/23/21 mL) subcutaneous pen units daily pen needle, diabetic 32 gauge x #100 ea 04/23/21 gabapentin 100 mg capsule See Rx Instructions PO .COMPLEX 05/01/21 #150 cap oxycodone 5 mg tablet 2.5 mg PO BID PRN #10 tab MDD 1 05/01/21 tablet Allergies Allergy/AdvReac Type Severity Reaction Status Date / Time metoclopramide [From Reglan] Allergy Verified 05/12/21 10:26 pollen extracts Allergy Verified 05/12/21 10:26 propoxyphene HCl AdvReac Nausea Verified 05/12/21 10:26 [From Darvon] General Stated Complaint: Chest Pain SHERIDAN: 2 Review of Systems All systems reviewed & are unremarkable except as noted in HPI and below PFSH Medical History (Updated 05/02/21 @ 16:16 by Marcie Rodriguez DO) Anemia Anxiety Cholecystitis (~01/2021) Chronic pain disorder Hx Lyrica, Gabapentin, Opioids, Tramadol. D/C'd with mixed pain symptoms. Ortho surgery helped (2019). MJ helping. Cold feet Daytime somnolence Diabetic neuropathy a. Bilateral. Esophageal stricture Foot pain, bilateral Presumed neuropathy, but Hx SURG and nerve blocks .. original Dx? GERD (gastroesophageal reflux disease) History of transient ischemic attack 2004 History of umbilical hernia Hyperlipidemia Hypertension Insomnia Medical marijuana use Nonalcoholic steatohepatitis Restless leg syndrome Doubting this Dx, 05/2020 Sinus tachycardia Snoring Stressful life event affecting family Bro (had been in rehab, s/p ICU in 05/2020).. Tubular adenoma (03/20/16) Surgical History Arthroplasty of knee Cholecystectomy (~2015) Endometrial Ablation H/O esophagogastroduodenoscopy (~12/25/20) History of cardiac cath (~02/07/21) [facility] [place]: 3 vessel dx (LAD,LCX,RCA) w/elevated LV EDP Hx of colonoscopy (~12/25/20) 2020-Tubular adenomas x10 Oophrectomy, Left Repair of umbilical hernia with mesh Repair, Tendon or Muscle Achilles Family History Mother Diabetes Father Heart disease Substance abuse Brother Substance abuse Depression Heart disease Social History Smoking/Tobacco Use Status: Never Smoking risk assessment performed?: Yes Alcohol Intake: former Drug use: Occasionally Substance use type: marijuana Adopted: No Caregiver/Support person: No Foster care: No Household members: none Housing: house Do you need help understanding health information?: Rarely current occupation: [employer] Sexually active: No Do you think of yourself as: straight/heterosexual Current gender identity: female Do you feel safe at home: Yes Do you feel safe in your relationship?: Yes Additional Social history: lives alone Exam Const General: cooperative and comfortable Eyes Sclera: sclerae normal Neck Other: No carotid bruit or pulsatile mass, normal thyroid Chest Chest: normal inspection of the chest Resp Effort & Inspection: normal respiratory effort Auscultation: clear to auscultation bilaterally Cardio Rate: regular rate Rhythm: regular rhythm Heart Sounds: no murmurs GI Other: Nontender abdominal exam Skin General skin exam: no rashes or lesions noted Neuro General: patient alert and patient oriented x3 Extrem Other: Distal pulses intact, no calf tenderness or swelling appreciated Psych Appearance: grossly normal Course Vital Signs Vital signs: Vital Signs Temperature 36.4 C L 05/12/21 10:19 Pulse 63 05/12/21 10:19 Respiratory Rate 15 05/12/21 10:19 Blood Pressure 142/57 H 05/12/21 10:19 Pulse Oximetry 99 05/12/21 10:19 Temperature 36.4 C L 05/12/21 10:19 Temperature Source Temporal Artery Scan 05/12/21 10:19 Pulse 65 05/12/21 10:20 Pulse 56 L 05/12/21 10:30 Respiratory Rate 13 05/12/21 10:30 Respiratory Effort Non-Labored 05/12/21 10:35 Respiratory Depth Normal 05/12/21 10:35 Respiratory Pattern Normal 05/12/21 10:35 Blood Pressure 142/57 H 05/12/21 10:20 Blood Pressure Mean 79 05/12/21 10:20 Blood Pressure Position Supine 05/12/21 10:19 Pulse Oximetry 96 05/12/21 10:30 Oxygen Delivery Method Room Air 05/12/21 10:19 Oxygen Flow Rate 0 05/12/21 10:19 Pain Level 4 05/12/21 10:35 Critical Care Time Critical Care Time Critical Care Time: Yes Total Critical Care Time: 40 Attestation: Unstable angina, telemetry monitoring, repeat EKG and troponin, consultation with [facility], aspirin administration, admission to the hospital
[2021-05-12] MEDS: Aspirin 81 MG CHEW 243 MG CH (10:48)
[2021-05-12 11:01] LABS: Abs Immature Grans 0.02 10^3/uL (0.0-0.06); Absolute Basophil Count 0.02 10^3/uL (0.0-0.2); Absolute Eosinophil Count 0.06 10^3/uL (0.0-0.7); Absolute Lymphocyte Count 1.94 10^3/uL (1.2-3.4); Absolute Monocyte Count 0.39 10^3/uL (0.1-0.8); Absolute Neutrophil Count 3.82 10^3/uL (1.2-6.7); Basophils % 0.3; HCT 33.7 % (36.0-46.0); HGB 10.5 g/dL (11.2-15.7); Immature Grans % 0.3; MCH 29.6 pg (27.0-33.0); MCHC 31.2 % (32.0-36.0); MCV 94.9 fL (80-95); MPV 10.1 fL (8.0-11.0); Monocytes % 6.2; Neutrophils % 61.2; Nucleated RBC 0 %; Platelet Count 234 10^3/uL (130-400); RBC 3.55 10^6/uL (3.93-5.22); RDW 13.2 % (11.7-14.6); RDW-SD 46.6 fL; WBC 6.25 10^3/uL (4.4-10.8)
[2021-05-12 11:15] LABS: Lipase 82 U/L (73-393)
[2021-05-12 11:20] LABS: ALT 23 U/L (14-59); AST 15 U/L (15-37); Albumin 3.4 g/dL (3.4-5.0); Alkaline Phosphatase 106 U/L (46-116); Anion Gap 7.6 mmol/L (3-11); BUN 46 mg/dL (7-18); Bilirubin, Total 0.2 mg/dL (0.2-1.0); CO2 28.4 mmol/L (21.0-32.0); CREATININE 1.8 mg/dL (0.55-1.02); Chloride 102 mmol/L (98-107); Estimated GFR 27.98 (mL/min/1.73m2); Glucose 217 mg/dL (74-106); Potassium 4.9 mmol/L (3.5-5.1); Sodium 138 mmol/L (136-145); Total Protein 8.9 g/dL (6.4-8.2); Troponin I < 0.05 ng/mL (<0.06)
[2021-05-12 11:26] LABS: Magnesium 2.1 mg/dL (1.8-2.4); NT-proBNP 1164 pg/mL (<300)
[2021-05-12 11:29] LABS: TSH (W/Ref FT4) 1.05 uIU/mL (0.36-3.74)
--- NOTE | 2021-05-12 12:00 | DI.RAD_ITS ---
Exam(s) XR CHEST 2V PA LATERAL EXAM: XR CHEST 2V PA LATERAL CLINICAL HISTORY: chest pain. TECHNIQUE: 2D digital imaging was performed. COMPARISON: CR,XR XR PORTABLE CHEST AP from 02/04/2021 FINDINGS: Heart size is slightly prominent. The mediastinum is not widened. Lungs are clear. No infiltrates nor pleural effusions. No evidence of pulmonary edema, as was present in January 2021. IMPRESSION: No acute pulmonary findings.No pulmonary edema or pleural effusions at this time. I note that this p atient was in pulmonary edema on the chest x-ray of 02/04/2021. DATA REPOSITORY: RADIATION DOSE DELIVERED:
[2021-05-12] MEDS: Heparin 5,000 UNITS/ML VIAL 4700 UNITS IV (12:44)
[2021-05-12 12:56] LABS: INR 1.1 (0.9-1.1); PTT Activated 22.7 sec (21.0-27.5); Prothrombin Time 10.8 sec (9.3-11.0)
--- NOTE | 2021-05-12 13:00 | RT.EKG_ITS ---
APPROVED REPORT Exam: Resting ECG Reason for Exam: chest pain Patient Location: E HR:55 bpm ECG Measurements Heart Rate 55 AXIS MD 188 P -33 QRSd 86 QRS -7 QT 457 T 74 QTc 437 Conclusion Sinus bradycardia...rate< 60 Inferior infarct, old...Q >35mS, II III aVF no STEMI, non-diagnostic EKG
[2021-05-12 13:34] LABS: Troponin I < 0.05 ng/mL (<0.06)
[2021-05-12 16:02] LABS: Source Nasal/Nares
[2021-05-12 17:08] LABS: COVID-19 PCR Negative (Negative)
--- NOTE | 2021-05-12 17:54 | W.PM.HP.N ---
Date of service: 05/12/21 Time of Service: 17:55 Assessment and Plan Assessment and plan (1) Unstable angina: Status: Acute Assessment and plan: patient has multivessel CAD. cardiac cath 04/11/2021 showed 90% mid LAD which was stented but she has 70% proximal LCX lesion which was not. Patient's c/o of chest tightness and aching in her jaw along w/ fatigue with relief w/ NTG are suggestive of ongoing angina. She will remain on heparin and I have held her diuretics and will give slow rate of iv fluids tonight in preparation for repeat heart cath tomorrow. She has been accepted to the service of . Her troponin I are neg. x 3 sets. If she gets recurrent CP/jaw pain then she should have repeat EKG's done and repeat troponin levels and put on NTG drip and [facility] cardiology needs notified for urgent transfer. cont. ASA, Plavix and atorvastatin and her Toprol XL. (2) Congestive heart failure: Status: Chronic Assessment and plan: although her BNP is elevated at 1100, clinicially she is not in acute CHF. She has no pedal edema or JVD and her lungs are clear. (3) Hypertension: Status: Chronic Assessment and plan: cont. her Toprol XL but hold her lisinopril tomorrow for her cath Qualifiers: Hypertension type: essential hypertension Qualified Code(s): I10 - Essential (primary) hypertension (4) Anemia: Status: Chronic Assessment and plan: stable chronic anemia. Hb is now 10.5 which is higher than her last level of 9.2 in March. Patient is on a PPI for GI protection and trx of her GERD/Hancock's Qualifiers: Anemia type: iron deficiency Iron deficiency anemia type: chronic blood loss Qualified Code(s): D50.0 - Iron deficiency anemia secondary to blood loss (chronic) (5) ASCVD (arteriosclerotic cardiovascular disease): Status: Chronic (6) Hancock's esophagus: Status: Chronic Qualifiers: Hancock's esophagus type: without dysplasia Qualified Code(s): K22.70 - Hancock's esophagus without dysplasia (7) Non-insulin dependent type 2 diabetes mellitus: Status: Chronic Assessment and plan: patient is just on low dose Lantus at home 10 units daily. I have held this d/t her being NPO tonight. She will be monitored w/ MBG and coverage prn w/ Novolog (8) Chronic kidney disease, stage 3b: Status: Acute Assessment and plan: stable creatinine. Hold diuretic and lisinopril for today in prep for heart cath History of Present Illness History of Present Illness Chief Complaint: CP Narrative: 66 yr old female w/ T2DM, CAD (s/p PCI to mid LAD lesion, but also has untreated 70% proximal LCX lesion), HLD, HTN, HFPEF (LVEF 40%, akinetic gerber in mid A-S, apex (all regions of apex), and hypokinesis in mid AW, mid AL, mid IW, mid IS gerber.) After leaving [facility] she says that she did not really feel any better. Because of her CKD they did not perform more extensive catheterization and PCI but decided on medical management and referred her to cardiac rehab. She says for past month she has felt fatigued but no real chest pain. However for past few days she has been experiencing intermittent tightness in her throat and jaw and today she had chest heaviness. She took one NTG this morning w/ relief of her CP. Despite that she got dressed and showed up for her cardiac rehab appointment and was promptly sent to the ER. Workup in the ER included negative troponin I <0.05 x 2 sets (third set has since returned negative) and BNP that is elevated at 1164 and elevated BUN and creatinine of 46 and 1.8 which appears to be close to her baseline (creatinine 1.6 to 1.8). EKG demonstrates SB 55 bpm w/ Q waves inferior leads c/w old inferior AR. No acute ST elevation but ST-T depression in I and avL. Patient is currently free of any CP or dyspnea. [facility] ER staff contacted [facility] cardiology and Lalitha Macias discussed the case w/ Tiffanie Colvin who indicated that they would accept the patient to the service of Dr. Zimmer but d/t lack of bed capacity the patient is being admitted to [facility] overnight. Patient had her ASA 81 mg and Plavix 75 mg this morning and was given extra 240 mg aspirin while in the ER and begun on heparin drip. Review of Systems Constitutional Constitutional: Reports system reviewed and no additional complaints, except as documented [facility] Medical History (Updated 05/12/21 @ 20:20 by Zeke Marie) Anemia Anxiety Cholecystitis (~01/2021) Chronic pain disorder Hx Lyrica, Gabapentin, Opioids, Tramadol. D/C'd with mixed pain symptoms. Ortho surgery helped (2019). MJ helping. Cold feet Daytime somnolence Diabetic neuropathy a. Bilateral. Esophageal stricture Foot pain, bilateral Presumed neuropathy, but Hx SURG and nerve blocks .. original Dx? GERD (gastroesophageal reflux disease) History of transient ischemic attack 2004 History of umbilical hernia Hyperlipidemia Hypertension Insomnia Medical marijuana use Nonalcoholic steatohepatitis Restless leg syndrome Doubting this Dx, 05/2020 Sinus tachycardia Snoring Stressful life event affecting family Bro (had been in rehab, s/p ICU in 05/2020).. Tubular adenoma (03/20/16) Surgical History Arthroplasty of knee Cholecystectomy (~2015) Endometrial Ablation H/O esophagogastroduodenoscopy (~12/25/20) History of cardiac cath (~02/07/21) [facility]: 3 vessel dx (LAD,LCX,RCA) w/elevated LV EDP Hx of colonoscopy (~12/25/20) 2020-Tubular adenomas x10 Oophrectomy, Left Repair of umbilical hernia with mesh Repair, Tendon or Muscle Achilles Family History Mother Diabetes Father Heart disease Substance abuse Brother Substance abuse Depression Heart disease Social History Smoking/Tobacco Use Status: Never Smoking risk assessment performed?: Yes Alcohol Intake: former Drug use: Occasionally Substance use type: marijuana Adopted: No Caregiver/Support person: No Foster care: No Household members: none Housing: house Do you need help understanding health information?: Rarely current occupation: [employer] Sexually active: No Do you think of yourself as: straight/heterosexual Current gender identity: female Do you feel safe at home: Yes Do you feel safe in your relationship?: Yes Additional Social history: lives alone Meds Allergies and Home Medications Allergies Allergy/AdvReac Type Severity Reaction Status Date / Time metoclopramide [From Reglan] Allergy Verified 05/12/21 10:26 pollen extracts Allergy Verified 05/12/21 10:26 propoxyphene HCl AdvReac Nausea Verified 05/12/21 10:26 [From Darvon] Home Medications Medication Instructions Recorded Confirmed Type nitroglycerin 0.4 mg sublingual 0.4 mg SL Q5M PRN #100 tab 07/08/20 05/12/21 Rx tablet polyethylene glycol 3350 17 8.5 g PO BID PRN #510 g 07/08/20 05/12/21 Rx gram/dose oral powder pantoprazole 40 mg tablet,delayed 40 mg PO DAILY #90 tab-cap NS 10/23/20 05/12/21 Rx release neuropaway 2 tab PO TID 11/07/20 05/12/21 History atorvastatin 40 mg PO HS 12/25/20 05/12/21 History acetaminophen 650 mg PO Q4H PRN PRN 01/28/21 05/12/21 History calcium carbonate 500 - 1,000 mg PO Q4H PRN PRN 01/28/21 05/12/21 History magnesium oxide 400 mg PO BID 02/17/21 05/12/21 History melatonin 3 mg tablet 6 mg PO HS PRN tab 02/17/21 05/12/21 History trazodone 50 mg tablet 25 mg PO QHS PRN tab 02/17/21 05/12/21 History lancets 33 gauge #100 ea 02/27/21 05/12/21 History ondansetron HCl 4 mg tablet 4 mg PO Q8H PRN #30 tab 02/27/21 05/12/21 Rx lisinopril 2.5 mg tablet 2.5 mg PO DAILY 03/20/21 05/12/21 History blood-glucose meter #1 ea 03/25/21 05/12/21 Rx blood sugar diagnostic #50 ea 03/27/21 05/12/21 Rx lancets 30 gauge #100 ea 03/27/21 05/12/21 Rx aspirin 81 mg tablet,delayed 81 mg PO DAILY 04/16/21 05/12/21 History release clopidogrel 75 mg tablet 75 mg PO DAILY 04/16/21 05/12/21 History duloxetine 30 mg capsule,delayed 30 mg PO DAILY 30 Days #30 cap 04/21/21 05/12/21 Rx release metoprolol succinate 50 mg 50 mg PO DAILY #90 tab 04/22/21 05/12/21 Rx tablet,extended release 24 hr insulin glargine 100 unit/mL (3 10 unit SUBCUT QAM #15 ml MDD 10 04/23/21 05/12/21 Rx mL) subcutaneous pen units daily pen needle, diabetic 32 gauge x #100 ea 04/23/21 05/12/21 Rx 5/32 torsemide 20 mg tablet 10 mg PO DAILY tab 04/23/21 05/12/21 History gabapentin 100 mg capsule See Rx Instructions PO .COMPLEX 05/01/21 05/12/21 Rx #150 cap oxycodone 5 mg tablet 2.5 mg PO BID PRN #10 tab MDD 1 05/01/21 05/12/21 Rx tablet Exam Const General: cooperative, comfortable, no acute distress, well developed and well groomed Nutritional Appearance: average body habitus Orientation: alert, awake and oriented x3 HENMT Head: normal to inspection Ears: hearing grossly normal bilaterally General nose exam: external nose normal Face and sinus: normal facial exam Mouth: oral mucosae normal Neck Neck: normal visual inspection, full ROM, no lymphadenopathy, trachea midline, supple and no JVD Thyroid: thyroid normal Carotids: normal carotid upstroke Resp Effort & Inspection: normal respiratory effort and able to speak in complete sentences Auscultation: clear to auscultation bilaterally Percussion: percussion normal GI Inspection: normal to inspection Percussion: normal to percussion Auscultation: normal bowel sounds Back/Spine/Pelvis Back: no CVA tenderness Skin General skin exam: no rashes or lesions noted Neuro General: patient alert, patient awake and patient oriented x3 Cognition: normal cognition Speech: speech normal Gait: normal gait Motor: muscle tone normal throughout Extrem General: normal to inspection, full ROM, capillary refill normal, no pedal edema and no calf tenderness Psych Appearance: grossly normal and well kempt Mental Status: mental status grossly normal Speech and Movement: speech and movement normal Mood: congruent mood Affect: normal affect Attitude: cooperative Thought Process: normal Thought Content: normal Insight: insight good Judgment: judgment good Results Labs Result diagrams: 05/12/21 10:20 05/12/21 10:20 Labs: Laboratory Results - last 24 hr 05/12/21 05/12/21 05/12/21 10:20 10:20 10:20 WBC 6.25 RBC 3.55 L Hgb 10.5 L Hct 33.7 L MCV 94.9 MCH 29.6 MCHC 31.2 L RDW 13.2 Plt Count 234 MPV 10.1 Immature Gran % 0.3 Neutrophils % 61.2 Lymphocytes % 31.0 Monocytes % 6.2 Eosinophils % 1.0 Basophils % 0.3 Nucleated RBC % 0 Absolute Neutrophils 3.82 Absolute Lymphocytes 1.94 Absolute Monocytes 0.39 Absolute Eosinophils 0.06 Absolute Basophils 0.02 PT INR APTT Sodium 138 Potassium 4.9 Chloride 102 Carbon Dioxide 28.4 Anion Gap 7.6 BUN 46 H Creatinine 1.8 H Estimated GFR/1.73 m2 27.98 Glucose 217 H Calcium 10.0 Magnesium 2.1 Total Bilirubin 0.2 AST 15 ALT 23 Alkaline Phosphatase 106 Troponin I < 0.05 NT-Pro-B Natriuret Pep 1164 H Total Protein 8.9 H Albumin 3.4 Lipase TSH COVID-19 Source SARS-CoV-2 (PCR) 05/12/21 05/12/21 05/12/21 10:20 10:20 12:32 WBC RBC Hgb Hct MCV MCH MCHC RDW Plt Count MPV Immature Gran % Neutrophils % Lymphocytes % Monocytes % Eosinophils % Basophils % Nucleated RBC % Absolute Neutrophils Absolute Lymphocytes Absolute Monocytes Absolute Eosinophils Absolute Basophils PT 10.8 INR 1.1 APTT 22.7 Sodium Potassium Chloride Carbon Dioxide Anion Gap BUN Creatinine Estimated GFR/1.73 m2 Glucose Calcium Magnesium Total Bilirubin AST ALT Alkaline Phosphatase Troponin I NT-Pro-B Natriuret Pep Total Protein Albumin Lipase 82 TSH 1.05 COVID-19 Source SARS-CoV-2 (PCR) 05/12/21 05/12/21 05/12/21 13:08 15:50 15:57 WBC RBC Hgb Hct MCV MCH MCHC RDW Plt Count MPV Immature Gran % Neutrophils % Lymphocytes % Monocytes % Eosinophils % Basophils % Nucleated RBC % Absolute Neutrophils Absolute Lymphocytes Absolute Monocytes Absolute Eosinophils Absolute Basophils PT INR APTT Cancelled Sodium Potassium Chloride Carbon Dioxide Anion Gap BUN Creatinine Estimated GFR/1.73 m2 Glucose Calcium Magnesium Total Bilirubin AST ALT Alkaline Phosphatase Troponin I < 0.05 NT-Pro-B Natriuret Pep Total Protein Albumin Lipase TSH COVID-19 Source Nasal/Nares SARS-CoV-2 (PCR) Negative Last Vital Signs Temp 36.8 C 05/12/21 16:21 Pulse 68 05/12/21 16:21 Resp 18 05/12/21 16:21 BP 136/81 05/12/21 16:21 Pulse Ox 98 05/12/21 16:21
[2021-05-12 18:38] LABS: Troponin I < 0.05 ng/mL (<0.06)
[2021-05-12] MEDS: Gabapentin 100 MG CAP 200 MG PO (19:40)
[2021-05-12 19:55] LABS: PTT Activated 45.4 sec (21.0-27.5)
[2021-05-12] MEDS: Melatonin 3 MG TAB 6 MG PO (21:14)
[2021-05-12] MEDS: Acetaminophen 325 MG TAB PO (21:14)
[2021-05-12] MEDS: oxyCODONE 5 MG TAB 2.5 MG PO (21:15)
[2021-05-12] MEDS: traZODone 50 MG TAB 25 MG PO (21:15)
[2021-05-12] MEDS: Atorvastatin 40 MG TAB PO (21:15)
[2021-05-13] MEDS: Acetaminophen 325 MG TAB PO ×3 (00:54→14:45)
[2021-05-13] MEDS: Normal Saline 1,000 ML 65 ML IV ×2 (00:57→11:58)
[2021-05-13 03:07] LABS: Bilirubin Negative (Negative); Blood Small (Negative); Clarity Clear (Clear); Glucose Negative (Negative); Ketones Negative (Negative); Leukocyte Esterase Negative (Negative); Nitrite Negative (Negative); Urobilinogen 0.2 EU/dL (Up TO 0.2)
[2021-05-13 03:08] LABS: Bacteria Few HPF (Negative); C & S Indicated? No; Casts Negative LPF (Negative); Crystals Negative HPF (Negative); Epithelial Cells Few HPF (Negative); Mucus Negative (Negative); WBC Negative HPF (0-5)
[2021-05-13] MEDS: oxyCODONE 5 MG TAB 2.5 MG PO ×2 (06:39→14:44)
[2021-05-13 07:08] LABS: Abs Immature Grans 0.01 10^3/uL (0.0-0.06); Absolute Basophil Count 0.02 10^3/uL (0.0-0.2); Absolute Lymphocyte Count 3.75 10^3/uL (1.2-3.4); Absolute Monocyte Count 0.56 10^3/uL (0.1-0.8); Absolute Neutrophil Count 2.65 10^3/uL (1.2-6.7); Basophils % 0.3; Eosinophils % 1.4; HCT 34.4 % (36.0-46.0); HGB 10.8 g/dL (11.2-15.7); Immature Grans % 0.1; Lymphocytes % 52.9; MCH 29.4 pg (27.0-33.0); MCHC 31.4 % (32.0-36.0); MCV 93.7 fL (80-95); MPV 10.2 fL (8.0-11.0); Monocytes % 7.9; Neutrophils % 37.4; Nucleated RBC 0 %; Platelet Count 247 10^3/uL (130-400); RBC 3.67 10^6/uL (3.93-5.22); RDW 13.2 % (11.7-14.6); RDW-SD 45.3 fL; WBC 7.09 10^3/uL (4.4-10.8)
[2021-05-13 07:15] LABS: Anion Gap 9.4 mmol/L (3-11); BUN 44 mg/dL (7-18); CO2 26.6 mmol/L (21.0-32.0); CREATININE 1.7 mg/dL (0.55-1.02); Calcium 10.2 mg/dL (8.5-10.1); Chloride 102 mmol/L (98-107); Estimated GFR 29.89 (mL/min/1.73m2); Glucose 123 mg/dL (74-106); Potassium 4.1 mmol/L (3.5-5.1); Sodium 138 mmol/L (136-145)
[2021-05-13 07:21] LABS: PTT Activated 47.8 sec (21.0-27.5)
[2021-05-13 07:27] VITALS: BP 157/75; PULSE 66; RESP 17; TEMP 36.3; O2SAT 100
[2021-05-13] MEDS: Metoprolol CR 50 MG TABCR PO (08:32)
[2021-05-13] MEDS: Gabapentin 100 MG CAP 200 MG PO (08:32)
[2021-05-13] MEDS: DULoxetine 30 MG CAP PO (08:32)
[2021-05-13] MEDS: Clopidogrel 75 MG TAB PO (08:32)
[2021-05-13] MEDS: Pantoprazole 40 MG TABCR PO (08:33)
[2021-05-13] MEDS: Aspirin E.C. 81 MG TABEC PO (08:34)
[2021-05-13] MEDS: Ondansetron 4 MG TAB PO (09:32)
--- NOTE | 2021-05-13 10:01 | INITIAL_ITS ---
- If Service Date Differs Date of service: 05/13/21 Time of Service: 10:01 Care Management Initial Assess REASON FOR HOSPITALIZATION:: Accelerating Angina PREVIOUS FUNCTIONAL STATUS/SOCIAL/FAMILY SUPPORTS:: 65 year old female who resides in [facility]. Patient has two daughters one locally and one in [place]. 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 Toyin has been hospitalized at [facility] twice in the past month. She has become weak and currently requires the use of a cane and walker at home. CURRENT FUNCTIONAL STATUS:: Toyin is being transferred to [facility]. ADVANCE DIRECTIVES:: None on file. Has patient been provided with info about the portal/API?: Yes Did the patient sign up for the portal?: No CODE STATUS:: Full Code INSURANCE COVERAGE / FINANCIAL ISSUES:: [employer] MCR replacement plan PRIMARY CARE PHYSICIAN:: Asia Gil POTENTIAL DISCHARGE NEEDS:: Followup with PCP and discharge plan PATIENT/FAMILY EDUCATION NEEDS:: Review of transfer process. ANTICIPATED BARRIERS TO DISCHARGE:: Review of discharge instructions, medications, follow up plan, Ask Me Three. TRANSPORTATION:: EMS coordinated by nursing supervisor electric motor testing. PLAN:: Toyin will transfer to [facility] later today. She will follow up with their providers and plan of care and transport via ambulance coordinated by nursing supervisor electric motor testing.
--- NOTE | 2021-05-13 10:01 | PDOC.CMIN ---
- If Service Date Differs Date of service: 05/13/21 Time of Service: 10:01 Care Management Initial Assess REASON FOR HOSPITALIZATION:: Accelerating Angina PREVIOUS FUNCTIONAL STATUS/SOCIAL/FAMILY SUPPORTS:: 65 year old female who resides in [facility]. Patient has two daughters one locally and one in [place]. 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 Toyin has been hospitalized [place] [facility] [place] in the past month. She has become weak and currently requires the use of a cane and walker at home. CURRENT FUNCTIONAL STATUS:: Toyin is being transferred [place] [facility]. ADVANCE DIRECTIVES:: None on file. Has patient been provided with info about the portal/API?: Yes Did the patient sign up for the portal?: No CODE STATUS:: Full Code INSURANCE COVERAGE / FINANCIAL ISSUES:: [employer] MCR replacement plan PRIMARY CARE PHYSICIAN:: Asia Gil POTENTIAL DISCHARGE NEEDS:: Followup with PCP and discharge plan PATIENT/FAMILY EDUCATION NEEDS:: Review of transfer process. ANTICIPATED BARRIERS TO DISCHARGE:: Review of discharge instructions, medications, follow up plan, Ask Me Three. TRANSPORTATION:: EMS coordinated by nursing clean up supervisor. PLAN:: Toyin will transfer to [facility] [place] today. She will follow up with their providers and plan of care and transport via ambulance coordinated by nursing clean up supervisor.
[2021-05-13 11:34] VITALS: BP 121/73; PULSE 62; RESP 18; TEMP 36.8; O2SAT 96
[2021-05-13] MEDS: Gabapentin 100 MG CAP PO (11:58)
--- NOTE | 2021-05-13 13:36 | PGE_ITS ---
Date of Service Date of service: 05/13/21 Time of Service: 13:36 Assessment and Plan Assessment and plan (1) Unstable angina: Status: Acute Assessment and plan: patient has multivessel CAD. cardiac cath 04/11/2021 showed 90% mid LAD which was stented but she has 70% proximal LCX lesion which was not. Patient's c/o of chest tightness and aching in her jaw along w/ fatigue with relief w/ NTG are suggestive of ongoing angina. She will remain on heparin and I have held her diuretics and will give slow rate of iv fluids tonight in preparation for repeat heart cath tomorrow. She has been accepted to the service of . Her troponin I are neg. x 3 sets. If she gets recurrent CP/jaw pain then she should have repeat EKG's done and repeat troponin levels and put on NTG drip and [facility] cardi[place] needs notified for urgent transfer. cont. ASA, Plavix and atorvastatin and her Toprol XL. (2) Congestive heart failure: Status: Chronic Assessment and plan: although her BNP is elevated at 1100, clinicially she is not in acute CHF. She has no pedal edema or JVD and her lungs are clear. (3) Hypertension: Status: Chronic Assessment and plan: cont. her Toprol XL but hold her lisinopril tomorrow for her cath Qualifiers: Hypertension type: essential hypertension Qualified Code(s): I10 - Essential (primary) hypertension (4) Anemia: Status: Chronic Assessment and plan: stable chronic anemia. Hb is now 10.5 which is higher than her last level of 9.2 in March. Patient is on a PPI for GI protection and trx of her GERD/Hancock's Qualifiers: Anemia type: iron deficiency Iron deficiency anemia type: chronic blood loss Qualified Code(s): D50.0 - Iron deficiency anemia secondary to blood loss (chronic) (5) ASCVD (arteriosclerotic cardiovascular disease): Status: Chronic (6) Hancock's esophagus: Status: Chronic Qualifiers: Hancock's esophagus type: without dysplasia Qualified Code(s): K22.70 - Hancock's esophagus without dysplasia (7) Non-insulin dependent type 2 diabetes mellitus: Status: Chronic Assessment and plan: patient is just on low dose Lantus at home 10 units daily. I have held this d/t her being NPO tonight. She will be monitored w/ MBG and coverage prn w/ Novolog (8) Chronic kidney disease, stage 3b: Status: Acute Assessment and plan: stable creatinine. Hold diuretic and lisinopril for today in prep for heart cath Subjective Subjective Patient reports: no new complaints, still having pain (bilateral feet which is chronic. no further jaw or neck pain), voiding w/o difficulty and afebrile; denies nausea Exam Const General: cooperative and comfortable Eyes Sclera: sclerae normal Chest Chest: normal inspection of the chest Resp Effort & Inspection: normal respiratory effort Auscultation: clear to auscultation bilaterally Cardio Rate: regular rate Rhythm: regular rhythm Heart Sounds: no murmurs Skin General skin exam: no rashes or lesions noted Neuro General: patient alert and patient oriented x3 Psych Appearance: grossly normal Objective Last Vital Signs Temp 36.8 C 05/13/21 11:34 Pulse 62 05/13/21 11:34 Resp 18 05/13/21 11:34 BP 121/73 05/13/21 11:34 Pulse Ox 96 05/13/21 11:34 Laboratory Results - last 24 hr 05/12/21 05/12/21 05/12/21 15:50 15:57 18:13 WBC RBC Hgb Hct MCV MCH MCHC RDW Plt Count MPV Immature Gran % Neutrophils % Lymphocytes % Monocytes % Eosinophils % Basophils % Nucleated RBC % Absolute Neutrophils Absolute Lymphocytes Absolute Monocytes Absolute Eosinophils Absolute Basophils APTT Cancelled Sodium Potassium Chloride Carbon Dioxide Anion Gap BUN Creatinine Estimated GFR/1.73 m2 Glucose Calcium Troponin I < 0.05 Urine Color Urine Clarity Urine pH Ur Specific [place] Urine Protein Urine Ketones Urine Blood Urine Nitrite Urine Bilirubin Urine Urobilinogen Ur Leukocyte Esterase Urine RBC Urine WBC Ur Epithelial Cells Urine Crystals Urine Bacteria Urine Casts Urine Mucus Ur Culture Indicated? Urine Glucose COVID-19 Source Nasal/Nares SARS-CoV-2 (PCR) Negative 05/12/21 05/12/21 05/13/21 19:26 21:06 06:48 WBC RBC Hgb Hct MCV MCH MCHC RDW Plt Count MPV Immature Gran % Neutrophils % Lymphocytes % Monocytes % Eosinophils % Basophils % Nucleated RBC % Absolute Neutrophils Absolute Lymphocytes Absolute Monocytes Absolute Eosinophils Absolute Basophils APTT 45.4 H D Sodium 138 Potassium 4.1 Chloride 102 Carbon Dioxide 26.6 Anion Gap 9.4 BUN 44 H Creatinine 1.7 H Estimated GFR/1.73 m2 29.89 Glucose 123 H D Calcium 10.2 H Troponin I Urine Color Yellow Urine Clarity Clear Urine pH 7.0 Ur Specific [place] 1.020 Urine Protein Negative Urine Ketones Negative Urine Blood Small H Urine Nitrite Negative Urine Bilirubin Negative Urine Urobilinogen 0.2 Ur Leukocyte Esterase Negative Urine RBC 5-10 H Urine WBC Negative Ur Epithelial Cells Few Urine Crystals Negative Urine Bacteria Few Urine Casts Negative Urine Mucus Negative Ur Culture Indicated? No Urine Glucose Negative COVID-19 Source SARS-CoV-2 (PCR) 05/13/21 05/13/21 06:48 06:48 WBC 7.09 RBC 3.67 L Hgb 10.8 L Hct 34.4 L MCV 93.7 MCH 29.4 MCHC 31.4 L RDW 13.2 Plt Count 247 MPV 10.2 Immature Gran % 0.1 Neutrophils % 37.4 Lymphocytes % 52.9 Monocytes % 7.9 Eosinophils % 1.4 Basophils % 0.3 Nucleated RBC % 0 Absolute Neutrophils 2.65 Absolute Lymphocytes 3.75 H Absolute Monocytes 0.56 Absolute Eosinophils 0.10 Absolute Basophils 0.02 APTT 47.8 H Sodium Potassium Chloride Carbon Dioxide Anion Gap BUN Creatinine Estimated GFR/1.73 m2 Glucose Calcium Troponin I Urine Color Urine Clarity Urine pH Ur Specific [place] Urine Protein Urine Ketones Urine Blood Urine Nitrite Urine Bilirubin Urine Urobilinogen Ur Leukocyte Esterase Urine RBC Urine WBC Ur Epithelial Cells Urine Crystals Urine Bacteria Urine Casts Urine Mucus Ur Culture Indicated? Urine Glucose COVID-19 Source SARS-CoV-2 (PCR)
--- NOTE | 2021-05-13 14:12 | W.PM.DS.N ---
Date of service: 05/13/21 Time of Service: 14:18 DS: Diagnosis Discharge Diagnosis (1) Unstable angina: Status: Acute (2) Congestive heart failure: Status: Chronic (3) Hypertension: Status: Chronic (4) Anemia: Status: Chronic (5) ASCVD (arteriosclerotic cardiovascular disease): Status: Chronic (6) Hancock's esophagus: Status: Chronic (7) Non-insulin dependent type 2 diabetes mellitus: Status: Chronic (8) Chronic kidney disease, stage 3b: Status: Acute Discharge Plan Disposition Patient Disposition: [facility] Condition: Stable Discharge Details Reason For Visit: Accelerating Angina Admit Date/Time: 05/12/21 16:12 Admit Provider: Zeke Marie Attending Provider: Zeke Marie Primary Care Provider: [facility] Hospital Course: This is a 66 year old patient with multivessel CAD. cardiac cath 04/11/2021 showed 90% mid LAD which was stented but she has 70% proximal LCX lesion which was not. Patient presents to ED c/o of chest tightness and aching in her jaw along w/ fatigue with relief w/ NTG are suggestive of ongoing angina. she reports that these symptoms have been occurring over the past week and when he reported at cardiac rehab they referred him here. Her case was discussed with cardiology at [facility]. She was placed on heparin and was provided gentle IV fluids overnight in preparation for repeat heart cath. She has been accepted to the service of but no beds available so she was held here overnight. She remained hemodynamically stable with no reoccurrence of her pain. Her troponin I have remained neg. x 3 sets. She was given ASA, Plavix and atorvastatin and her Toprol XL. a bed has become available and she is being transported by ground EMS. she remains on heparin drip per protocol. discussed with Dr Farrell. Home Meds and New Rx's Prescriptions: Continued (DME) blood-glucose meter Kit See Rx Instructions .ROUTE .MEDSUPPLY Qty: 1 RF: 0 oxycodone 5 mg tablet 2.5 mg PO BID MDD 1 tablet PRN (Reason: severe foot pain) Qty: 10 RF: 0 gabapentin 100 mg capsule See Rx Instructions PO .COMPLEX Qty: 150 RF: 0 nitroglycerin 0.4 mg tablet, sublingual 0.4 mg SL Q5M PRN (Reason: chest pain) Qty: 100 RF: 0 polyethylene glycol 3350 [Miralax] 17 gram/dose powder 8.5 g PO BID PRN (Reason: constipation) Qty: 510 RF: 6 neuropaway 2 tab PO TID RF: 0 ondansetron HCl [Zofran] 4 mg tablet 4 mg PO Q8H PRN (Reason: nausea and vomiting) Qty: 30 RF: 1 Lantus Solostar U-100 Insulin 100 unit/mL (3 mL) insulin pen 10 unit subcut QAM MDD 10 units daily Qty: 15 RF: 0 (DME) pen needle, diabetic [BD Ultra-Fine Dionna Pen Needle] 32 gauge x / needle See Rx Instructions .ROUTE .MEDSUPPLY Qty: 100 RF: 0 pantoprazole 40 mg tablet,delayed release (DR/EC) 40 mg PO DAILY Qty: 90 RF: 3 magnesium oxide 400 mg magnesium capsule 400 mg PO BID RF: 0 melatonin 3 mg tablet 6 mg PO HS PRNRF: 0 trazodone 50 mg tablet 25 mg PO QHS PRNRF: 0 Hold Instructions: Home Medication placed on hold at Doctor's office (DME) lancets 33 gauge misc See Rx Instructions .ROUTE .MEDSUPPLY Qty: 100 RF: 0 lisinopril 2.5 mg tablet 2.5 mg PO DAILY RF: 0 (DME) OneTouch Ultra Blue Test Strip Strip See Rx Instructions .ROUTE .MEDSUPPLY Qty: 50 RF: 2 (DME) lancets [OneTouch Delica Lancets] 30 gauge misc See Rx Instructions .ROUTE .MEDSUPPLY Qty: 100 RF: 2 aspirin [Adult Aspirin Regimen] 81 mg tablet,delayed release (DR/EC) 81 mg PO DAILY RF: 0 clopidogrel 75 mg tablet 75 mg PO DAILY RF: 0 duloxetine 30 mg capsule,delayed release(DR/EC) 30 mg PO DAILY 30 Days Qty: 30 RF: 5 metoprolol succinate 50 mg tablet extended release 24 hr 50 mg PO DAILY Qty: 90 RF: 3 torsemide 20 mg tablet 10 mg PO DAILY RF: 0 atorvastatin 40 mg tablet 40 mg PO HS RF: 0 acetaminophen 325 mg Tablet 650 mg PO Q4H PRN PRNRF: 0 calcium carbonate 500 mg calcium (1,250 mg) Tablet,Chewable 500 - 1,000 mg PO Q4H PRN PRNRF: 0 Discharge Instructions Instructions: Acute Coronary Syndrome (DC) Stand Alone Forms: Nursing Discharge Form Activity:: bedrest Equipment/Supplies:: No Equipment Needed Diet:: NPO Discharge Orders Discharge Orders: Discharge Order (Routine); Ordered 05/13/21 Ordered By: Jyoti Sarah Discharge Data Discharge Date/Time-TO BE ENTERED AT DEPARTURE: 05/13/21 14:53 DS: Summary Time Spent with Patient providing and/or coordinating discharge services: Greater than 30 minutes Status at Discharge Functional status at discharge: independent ambulation Overall status at discharge: patient is back to baseline Mental Status: mental status grossly normal Speech and Movement: speech and movement normal Mood: congruent mood Affect: normal affect Exam Const General: no acute distress, well developed and well groomed Nutritional Appearance: average body habitus Orientation: alert, awake and oriented x3 HENMT Head: normal to inspection Ears: hearing grossly normal bilaterally General nose exam: external nose normal Face and sinus: normal facial exam Mouth: oral mucosae normal Neck Neck: normal visual inspection, full ROM, no lymphadenopathy, trachea midline, supple and no JVD Resp Effort & Inspection: able to speak in complete sentences Percussion: percussion normal GI Inspection: normal to inspection Percussion: normal to percussion Auscultation: normal bowel sounds Back/Spine/Pelvis Back: no CVA tenderness Neuro General: patient awake Cognition: normal cognition Speech: speech normal Gait: normal gait Motor: muscle tone normal throughout Extrem General: normal to inspection, full ROM, capillary refill normal, no pedal edema and no calf tenderness Psych Appearance: well kempt Mental Status: mental status grossly normal Speech and Movement: speech and movement normal Mood: congruent mood Affect: normal affect Attitude: cooperative Thought Process: normal Thought Content: normal Insight: insight good Judgment: judgment good DS: Data Vitals/I&O Vitals and I&O: Vital Signs Temperature 36.8 C 05/13/21 11:34 Temperature Source Tympanic 05/13/21 11:34 Pulse 62 05/13/21 11:34 Pulse Rhythm Regular 05/13/21 11:39 Pulse 61 05/12/21 16:09 Respiratory Rate 18 05/13/21 11:34 Respiratory Effort Non-Labored 05/13/21 11:39 Respiratory Depth Normal 05/13/21 11:39 Respiratory Pattern Normal 05/13/21 11:39 Blood Pressure 121/73 05/13/21 11:34 Blood Pressure Mean 103 05/12/21 15:46 Blood Pressure Position Supine 05/12/21 10:19 Pulse Oximetry 96 05/13/21 11:34 Oxygen Delivery Method Room Air 05/13/21 11:34 Oxygen Flow Rate 0 05/13/21 11:34 Pain Level 6 05/13/21 11:34 Intake & Output 05/12/21 05/13/21 05/13/21 23:59 11:59 23:59 Intake Total 918.274 / 918.274 Output Total 600 / 600 Balance 918.274 / 318.274 -600 / 318.274 Weight 68.94 kg Intake: IV 918.274 / 918.274 Output: Urine 600 / 600 Other: Urine Color Yellow Urine Appearance Clear Clear Urine Odor None Comment Patient voided in the toliet an unmeasurable amount. independant to the comode, multiple void Voiding Methods Toilet Bedside Commode Data Completed and Pending Labs on day of discharge: Labs from last 24 hours 05/13/21 05/13/21 05/13/21 06:48 06:48 06:48 WBC 7.09 RBC 3.67 L Hgb 10.8 L Hct 34.4 L MCV 93.7 MCH 29.4 MCHC 31.4 L RDW 13.2 Plt Count 247 MPV 10.2 Immature Gran % 0.1 Neutrophils % 37.4 Lymphocytes % 52.9 Monocytes % 7.9 Eosinophils % 1.4 Basophils % 0.3 Nucleated RBC % 0 Absolute Neutrophils 2.65 Absolute Lymphocytes 3.75 H Absolute Monocytes 0.56 Absolute Eosinophils 0.10 Absolute Basophils 0.02 APTT 47.8 H Sodium 138 Potassium 4.1 Chloride 102 Carbon Dioxide 26.6 Anion Gap 9.4 BUN 44 H Creatinine 1.7 H Estimated GFR/1.73 m2 29.89 Glucose 123 H D Calcium 10.2 H Troponin I Urine Color Urine Clarity Urine pH Ur Specific [place] Urine Protein Urine Ketones Urine Blood Urine Nitrite Urine Bilirubin Urine Urobilinogen Ur Leukocyte Esterase Urine RBC Urine WBC Ur Epithelial Cells Urine Crystals Urine Bacteria Urine Casts Urine Mucus Ur Culture Indicated? Urine Glucose COVID-19 Source SARS-CoV-2 (PCR) 05/12/21 05/12/21 05/12/21 21:06 19:26 18:13 WBC RBC Hgb Hct MCV MCH MCHC RDW Plt Count MPV Immature Gran % Neutrophils % Lymphocytes % Monocytes % Eosinophils % Basophils % Nucleated RBC % Absolute Neutrophils Absolute Lymphocytes Absolute Monocytes Absolute Eosinophils Absolute Basophils APTT 45.4 H D Sodium Potassium Chloride Carbon Dioxide Anion Gap BUN Creatinine Estimated GFR/1.73 m2 Glucose Calcium Troponin I < 0.05 Urine Color Yellow Urine Clarity Clear Urine pH 7.0 Ur Specific [place] 1.020 Urine Protein Negative Urine Ketones Negative Urine Blood Small H Urine Nitrite Negative Urine Bilirubin Negative Urine Urobilinogen 0.2 Ur Leukocyte Esterase Negative Urine RBC 5-10 H Urine WBC Negative Ur Epithelial Cells Few Urine Crystals Negative Urine Bacteria Few Urine Casts Negative Urine Mucus Negative Ur Culture Indicated? No Urine Glucose Negative COVID-19 Source SARS-CoV-2 (PCR) 05/12/21 05/12/21 15:57 15:50 WBC RBC Hgb Hct MCV MCH MCHC RDW Plt Count MPV Immature Gran % Neutrophils % Lymphocytes % Monocytes % Eosinophils % Basophils % Nucleated RBC % Absolute Neutrophils Absolute Lymphocytes Absolute Monocytes Absolute Eosinophils Absolute Basophils APTT Cancelled Sodium Potassium Chloride Carbon Dioxide Anion Gap BUN Creatinine Estimated GFR/1.73 m2 Glucose Calcium Troponin I Urine Color Urine Clarity Urine pH Ur Specific [place] Urine Protein Urine Ketones Urine Blood Urine Nitrite Urine Bilirubin Urine Urobilinogen Ur Leukocyte Esterase Urine RBC Urine WBC Ur Epithelial Cells Urine Crystals Urine Bacteria Urine Casts Urine Mucus Ur Culture Indicated? Urine Glucose COVID-19 Source Nasal/Nares SARS-CoV-2 (PCR) Negative [facility] Medical History (Updated 05/12/21 @ 20:20 by Zeke Marie) Anemia Anxiety Cholecystitis (~01/2021) Chronic pain disorder Hx Lyrica, Gabapentin, Opioids, Tramadol. D/C'd with mixed pain symptoms. Ortho surgery helped (2019). MJ helping. Cold feet Daytime somnolence Diabetic neuropathy a. Bilateral. Esophageal stricture Foot pain, bilateral Presumed neuropathy, but Hx SURG and nerve blocks .. original Dx? GERD (gastroesophageal reflux disease) History of transient ischemic attack 2004 History of umbilical hernia Hyperlipidemia Hypertension Insomnia Medical marijuana use Nonalcoholic steatohepatitis Restless leg syndrome Doubting this Dx, 05/2020 Sinus tachycardia Snoring Stressful life event affecting family Bro (had been in rehab, s/p ICU in 05/2020).. Tubular adenoma (03/20/16) Surgical History Arthroplasty of knee Cholecystectomy (~2015) Endometrial Ablation H/O esophagogastroduodenoscopy (~12/25/20) History of cardiac cath (~02/07/21) [facility]: 3 vessel dx (LAD,LCX,RCA) w/elevated LV EDP Hx of colonoscopy (~12/25/20) 2020-Tubular adenomas x10 Oophrectomy, Left Repair of umbilical hernia with mesh Repair, Tendon or Muscle Achilles Family History Mother Diabetes Father Heart disease Substance abuse Brother Substance abuse Depression Heart disease Social History Smoking/Tobacco Use Status: Never Smoking risk assessment performed?: Yes Alcohol Intake: former Drug use: Occasionally Substance use type: marijuana Adopted: No Caregiver/Support person: No Foster care: No Household members: none Housing: house Do you need help understanding health information?: Rarely current occupation: [employer] Sexually active: No Do you think of yourself as: straight/heterosexual Current gender identity: female Do you feel safe at home: Yes Do you feel safe in your relationship?: Yes Additional Social history: lives alone
--- NOTE | 2021-05-13 14:21 | CHAPLAIN ---
Toyin was resting in bed when I visited. The neuropathy in her feet was bothering her and had kept her from sleeping. She is going to [facility] for cardiac care. Toyin said, I just can't catch a break. She had had one stint placed for a blockage and said she thinks she may need two more or she may be having a cardio cath. She wasn't sure what the plan was. Earlier this year she spent considerable time and [facility] and some here as well. She is planning on selling her house and moving to a one-story rental which is owned by relatives and hopes this will be the beginning of new, positive changes for her.
[2021-05-13 15:12] VITALS: PULSE 70
== END 2021-05-13 14:53 | disposition short-term general hospital (02) ==
LOC: ER 15:17 → MS 16:26
PROVIDERS: Student in an Organized Health Care Education/Training Program; Admitting Provider Internal Medicine; Emergency Provider Physician Assistant; PCP Student in an Organized Health Care Education/Training Program; Visit Provider Internal Medicine
DX: I25.110 Atherosclerotic heart disease of native coronary artery with unstable angina pectoris (principal); D64.9 Anemia, unspecified; K22.70 Barrett's esophagus without dysplasia; E11.22 Type 2 diabetes mellitus with diabetic chronic kidney disease; N18.32 Chronic kidney disease, stage 3b; I13.0 Hypertensive heart and chronic kidney disease with heart failure and stage 1 through stage 4 chronic kidney disease, or unspecified chronic kidney disease; I50.30 Unspecified diastolic (congestive) heart failure; Z95.5 Presence of coronary angioplasty implant and graft; E11.42 Type 2 diabetes mellitus with diabetic polyneuropathy; K76.0 Fatty (change of) liver, not elsewhere classified; K21.9 Gastro-esophageal reflux disease without esophagitis; G25.81 Restless legs syndrome; Z79.4 Long term (current) use of insulin; Z20.822 Contact with and (suspected) exposure to COVID-19
CPT/HCPCS: 36415; 80048; 80053; 83690; 87635; 93005; 96365; 96366; 96376; 99291; 71046; 81003; 81015; 83735; 83880; 84443; 84484; 85025; 85610; 85730; 93010; 99217; 99220; G0378; J1644; J8597

== ENCOUNTER → 2021-05-23 10:36 | Outpatient (BNVA) | payer OTHER, BC, SELFPAY | PROVIDERS: PCP Student in an Organized Health Care Education/Training Program; Referring Provider Student in an Organized Health Care Education/Training Program; Visit Provider Internal Medicine Cardiovascular Disease | DX: I25.10 Atherosclerotic heart disease of native coronary artery without angina pectoris (principal); N18.4 Chronic kidney disease, stage 4 (severe); E11.22 Type 2 diabetes mellitus with diabetic chronic kidney disease | CPT/HCPCS: 99214 ==

== ENCOUNTER 2021-06-09 10:00 | Outpatient (RCR) | payer OTHER, BC, SELFPAY | END 2021-06-10 23:59 | disposition home or self-care (01) | LOC: CR 10:00 | PROVIDERS: PCP Student in an Organized Health Care Education/Training Program; Visit Provider Family Medicine | DX: Z51.89 Encounter for other specified aftercare (principal); I25.2 Old myocardial infarction; Z95.5 Presence of coronary angioplasty implant and graft | CPT/HCPCS: S9472 ==

== ENCOUNTER 2021-06-13 03:03 | Outpatient (CLI) | payer OTHER, BC, SELFPAY ==
[2021-06-13 10:59] LABS: HCT 32.7 % (36.0-46.0); HGB 10.3 g/dL (11.2-15.7); MCH 29.7 pg (27.0-33.0); MCHC 31.5 % (32.0-36.0); MCV 94.2 fL (80-95); MPV 9.5 fL (8.0-11.0); Platelet Count 212 10^3/uL (130-400); RBC 3.47 10^6/uL (3.93-5.22); RDW 14.4 % (11.7-14.6); RDW-SD 48.6 fL; WBC 7.27 10^3/uL (4.4-10.8)
[2021-06-13 12:46] LABS: Calculated LDL 80 mg/dL (<100); Cholesterol 166 mg/dL (<200); HDL Cholesterol 48 mg/dL (40-60); Triglyceride 190 mg/dL (<150)
[2021-06-13 13:01] LABS: ALT 32 U/L (14-59); AST 17 U/L (15-37); Albumin 3.7 g/dL (3.4-5.0); Alkaline Phosphatase 113 U/L (46-116); Anion Gap 9.6 mmol/L (3-11); BUN 39 mg/dL (7-18); Bilirubin, Total 0.4 mg/dL (0.2-1.0); CO2 27.4 mmol/L (21.0-32.0); CREATININE 1.7 mg/dL (0.55-1.02); Calcium 9.2 mg/dL (8.5-10.1); Chloride 103 mmol/L (98-107); Estimated GFR 29.89 (mL/min/1.73m2); Glucose 103 mg/dL (74-106); Potassium 5.1 mmol/L (3.5-5.1); Sodium 140 mmol/L (136-145); Total Protein 8.1 g/dL (6.4-8.2); Vitamin B12 559 pg/mL (193-986)
== END 2021-06-13 03:04 | disposition home or self-care (01) ==
LOC: LBO 03:03
PROVIDERS: Internal Medicine Cardiovascular Disease; PCP Student in an Organized Health Care Education/Training Program; Visit Provider Student in an Organized Health Care Education/Training Program
DX: I25.10 Atherosclerotic heart disease of native coronary artery without angina pectoris (principal); R53.83 Other fatigue; D50.0 Iron deficiency anemia secondary to blood loss (chronic); E11.42 Type 2 diabetes mellitus with diabetic polyneuropathy; K75.81 Nonalcoholic steatohepatitis (NASH); K74.60 Unspecified cirrhosis of liver; N18.4 Chronic kidney disease, stage 4 (severe); G62.9 Polyneuropathy, unspecified
CPT/HCPCS: 36415; 80053; 80061; 85027; 82607

== ENCOUNTER 2021-06-24 12:16 | Outpatient (REF) | payer OTHER, SELFPAY | END 2021-06-24 12:17 | disposition home or self-care (01) | LOC: LBN 12:16 | PROVIDERS: PCP Student in an Organized Health Care Education/Training Program; Visit Provider Student in an Organized Health Care Education/Training Program | DX: E11.9 Type 2 diabetes mellitus without complications; R32 Unspecified urinary incontinence | CPT/HCPCS: 87086 ==

== ENCOUNTER 2021-07-09 10:00 | Outpatient (RCR) | payer OTHER, BC, SELFPAY | END 2021-07-10 23:59 | disposition home or self-care (01) | LOC: CR 10:00 | PROVIDERS: PCP Student in an Organized Health Care Education/Training Program; Visit Provider Family Medicine | DX: Z51.89 Encounter for other specified aftercare (principal); I25.2 Old myocardial infarction; Z95.5 Presence of coronary angioplasty implant and graft | CPT/HCPCS: S9472 ==

== ENCOUNTER 2021-08-08 10:00 | Outpatient (RCR) | payer MEDICARE, SELFPAY | END 2021-08-10 23:59 | disposition home or self-care (01) | LOC: CR 10:00 | PROVIDERS: PCP Student in an Organized Health Care Education/Training Program; Visit Provider Family Medicine | DX: I25.2 Old myocardial infarction (principal); Z95.5 Presence of coronary angioplasty implant and graft; I25.10 Atherosclerotic heart disease of native coronary artery without angina pectoris; Z51.89 Encounter for other specified aftercare | CPT/HCPCS: S9472 ==

== ENCOUNTER 2021-08-22 09:51 | Emergency (ER) | payer MEDICARE, SELFPAY ==
[2021-08-22] VITALS (42 sets, daily range): BP systolic 120–151; BP diastolic 48–109; PULSE 65–87; RESP 10–20; TEMP 35.9–36.2; O2SAT 93–97
--- NOTE | 2021-08-22 10:00 | RT.EKG_ITS ---
APPROVED REPORT Exam: Resting ECG Reason for Exam: epigastric pain Patient Location: E HR:76 bpm ECG Measurements Heart Rate 76 AXIS UT 235 P 32 QRSd 87 QRS 30 QT 399 T 52 QTc 447 Conclusion Sinus rhythm...normal P axis, V-rate 60- 99 Atrial premature complex...SV complex w/ short R-R interval Prolonged UT interval...UT >220, V-rate 50- 90 no STEMI, non-diagnostic EKG I have reviewed and interpreted ECG and agree with software generated interpretation.
--- NOTE | 2021-08-22 10:30 | RT.EKG_ITS ---
APPROVED REPORT Exam: Resting ECG Reason for Exam: epigastric pain Patient Location: E HR:69 bpm ECG Measurements Heart Rate 69 AXIS SC 224 P 49 QRSd 90 QRS -1 QT 420 T 57 QTc 450 Conclusion Sinus rhythm...normal P axis, V-rate 60- 99 Atrial premature complex...SV complex w/ short R-R interval Prolonged SC interval...SC >220, V-rate 50- 90 Inferior infarct, old...Q >35mS, II III aVF
[2021-08-22 10:52] LABS: HCT 34.5 % (36.0-46.0); HGB 11.2 g/dL (11.2-15.7); MCH 30.9 pg (27.0-33.0); MCHC 32.5 % (32.0-36.0); MPV 10.3 fL (8.0-11.0); Platelet Count 165 10^3/uL (130-400); RBC 3.63 10^6/uL (3.93-5.22); RDW 12.8 % (11.7-14.6); RDW-SD 44.5 fL; WBC 5.58 10^3/uL (4.4-10.8)
--- NOTE | 2021-08-22 11:00 | DI.CT_ITS ---
Exam(s) CT ABDOMEN PELVIS WO EXAM: CT ABDOMEN PELVIS WO INDICATION: epigastric and RUQ pain. COMPARISON: CT CT ABDOMEN PELVIS WO from 02/18/2021 TECHNIQUE: FINDINGS: CT examination of the abdomen and pelvis was performed without contrast administration. Images obtained through the lung bases are unremarkable. Note is made of coronary artery calcification The liver is unremarkable in appearance. Prior cholecystectomy or partial cholecystectomy noted. The bile ducts are CT normal. Pancreas appears normal. Spleen is unremarkable in appearance. Adrenals appear normal. There is no evidence of hydronephrosis. There are multiple renal calcifications noted bilaterally, m ost of which are probably vascular, however calcification of the collecting systems is not excluded. There is a 14 millimeter in diameter homogeneous hyper attenuating right renal cortical mass with av erage attenuation in excess of 70 Hounsfield units, consistent with benign process. Urinary bladder is unremarkable. Abdominal aorta is of normal diameter. No abdominal wall hernia. No abdominal or pelvic adenopathy. RN FORENSIC structures appear unremarkable for age. Appendix is normal. No evidence of diverticulitis or bowel obstruction. IMPRESSION: No evidence of acute intra-abdominal process. RADIATION DOSE DELIVERED: 949.06mGy.cm Total DLP 949.06mGy.cm Total DLP CTDIvol RADIATION OPTIMIZATION: All CT scans at this facility use at least one of these dose optimization te chniques: automated exposure control; mA and/or kV adjustment per patient size (includes targeted exa ms where dose is matched to clinical indication); or iterative reconstruction.
[2021-08-22 11:09] LABS: Abs Immature Grans 0.01 10^3/uL (0.0-0.06); Absolute Basophil Count 0.02 10^3/uL (0.0-0.2); Absolute Eosinophil Count 0.11 10^3/uL (0.0-0.7); Absolute Lymphocyte Count 2.02 10^3/uL (1.2-3.4); Absolute Monocyte Count 0.43 10^3/uL (0.1-0.8); Basophils % 0.3; Eosinophils % 1.9; Immature Grans % 0.2; Lymphocytes % 34.9; Monocytes % 7.4; Neutrophils % 55.3
[2021-08-22 11:15] LABS: NT-proBNP 404 pg/mL (<300); Troponin I < 0.05 ng/mL (<0.06)
[2021-08-22 11:16] LABS: ALT 30 U/L (14-59); AST 22 U/L (15-37); Albumin 3.8 g/dL (3.4-5.0); Alkaline Phosphatase 104 U/L (46-116); Anion Gap 7.1 mmol/L (3-11); BUN 46 mg/dL (7-18); Bilirubin, Total 0.5 mg/dL (0.2-1.0); CO2 28.9 mmol/L (21.0-32.0); CREATININE 1.8 mg/dL (0.55-1.02); Calcium 9.3 mg/dL (8.5-10.1); Chloride 103 mmol/L (98-107); Estimated GFR 27.98 (mL/min/1.73m2); Glucose 199 mg/dL (74-106); Lipase 106 U/L (73-393); Sodium 139 mmol/L (136-145); Total Protein 8.4 g/dL (6.4-8.2)
--- NOTE | 2021-08-22 11:42 | DI.RAD_ITS ---
Exam(s) XR CHEST 2V PA LATERAL EXAM: XR CHEST 2V PA LATERAL CLINICAL HISTORY: chf, weight gain TECHNIQUE: 2D digital imaging was performed. COMPARISON: CR XR CHEST 2V PA LATERAL from 05/12/2021 FINDINGS: The heart is not enlarged. The lungs are clear and well expanded. No pleural effusion seen. Mediastin al contours appear intact. IMPRESSION: Normal chest. RADIATION DOSE DELIVERED: Total DLP
[2021-08-22 13:54] LABS: Troponin I < 0.05 ng/mL (<0.06)
--- NOTE | 2021-08-22 14:14 | ED.GENADUL_ITS ---
Discharge Plan Disposition Patient Disposition: HOME Condition: Stable Discharge Details Clinical Impression: Acute epigastric pain Primary Care Provider: Asia Gil ED Provider: Lalitha Macias Home Meds and New Rx's Prescriptions: Continued (DME) blood-glucose meter Kit See Rx Instructions .ROUTE .MEDSUPPLY Qty: 1 RF: 0 oxycodone 5 mg tablet 2.5 mg PO BID MDD 1 tablet PRN (Reason: severe foot pain) Qty: 10 RF: 0 gabapentin 600 mg tablet extended release 24 hr 600 mg PO QPM Qty: 30 RF: 0 nitroglycerin 0.4 mg tablet, sublingual 0.4 mg SL Q5M PRN (Reason: chest pain) Qty: 100 RF: 0 neuropaway 2 tab PO TID RF: 0 ondansetron HCl [Zofran] 4 mg tablet 4 mg PO Q8H PRN (Reason: nausea and vomiting) Qty: 30 RF: 1 pantoprazole 40 mg tablet,delayed release (DR/EC) 40 mg PO DAILY Qty: 90 RF: 3 magnesium oxide 400 mg magnesium capsule 400 mg PO BID RF: 0 melatonin 3 mg tablet 6 mg PO HS PRNRF: 0 trazodone 50 mg tablet 25 mg PO QHS PRNRF: 0 Hold Instructions: Home Medication placed on hold at Doctor's office (DME) lancets 33 gauge misc See Rx Instructions .ROUTE .MEDSUPPLY Qty: 100 RF: 0 (DME) OneTouch Ultra Blue Test Strip Strip See Rx Instructions .ROUTE .MEDSUPPLY Qty: 50 RF: 2 (DME) lancets [OneTouch Delica Lancets] 30 gauge misc See Rx Instructions .ROUTE .MEDSUPPLY Qty: 100 RF: 2 aspirin [Adult Aspirin Regimen] 81 mg tablet,delayed release (DR/EC) 81 mg PO DAILY RF: 0 clopidogrel 75 mg tablet 75 mg PO DAILY RF: 0 duloxetine 30 mg capsule,delayed release(DR/EC) 30 mg PO DAILY 30 Days Qty: 30 RF: 5 metoprolol succinate 50 mg tablet extended release 24 hr 50 mg PO DAILY Qty: 90 RF: 3 torsemide 20 mg tablet 10 mg PO DAILY RF: 0 isosorbide mononitrate 30 mg tablet extended release 24 hr 30 mg PO QAM RF: 0 atorvastatin 40 mg tablet 40 mg PO HS Qty: 90 RF: 3 lisinopril 2.5 mg tablet 2.5 mg PO DAILY RF: 0 polyethylene glycol 3350 [Miralax] 17 gram/dose powder 8.5 g PO BID PRN (Reason: constipation) Qty: 510 RF: 6 (DME) pen needle, diabetic [BD Ultra-Fine Dionna Pen Needle] 32 gauge x 5/32 needle See Rx Instructions .ROUTE .MEDSUPPLY Qty: 100 RF: 3 gabapentin 300 mg capsule 600 mg PO TID MDD 900mg Qty: 180 RF: 1 Lantus Solostar U-100 Insulin 100 unit/mL (3 mL) insulin pen 10 unit subcut QAM MDD 10 units daily Qty: 15 RF: 0 acetaminophen 325 mg Tablet 650 mg PO Q4H PRN PRNRF: 0 calcium carbonate 500 mg calcium (1,250 mg) Tablet,Chewable 500 - 1,000 mg PO Q4H PRN PRNRF: 0 Discharge Instructions Instructions: Abdominal Pain (ED) Additional Instructions: Please follow-up with your primary care physician on Wednesday Please follow-up for your stress test Call your staffing executive for follow-up Go to your scheduled appointment I am giving you 4 tablets of oxycdone at night as needed Should you have worsening pain, fever, chills, or with any new or progressing symptoms, please return to the emergency room for reassessment Referrals: Asia Gil DO [Primary Care Provider] - Discharge Data Discharge Date/Time-TO BE ENTERED AT DEPARTURE: 08/22/21 14:50 Medical Decision Making Patient appears well, her vitals are stable Diagnostic labs within normal limits BUN 46, creatinine 1.8, consistent with prior when compared Glucose of 199, consistent with diabetes BNP 404, troponin negative x2, EKG without acute abnormality Chest x-ray without evidence of volume overload per radiology interpretation and my review CT abdomen and pelvis without evidence of acute abnormality per radiology interpretation in my review Patient resting comfortably in room, no acute distress Case discussed with Daniel physician litigation assistant on-call for cardiology at [facility], low suspicion for cardiac, patient symptoms, however given her comorbidities, she will need close outpatient assessment Fausto does not feel that this patient needs to be admitted from a cardiac standpoint with 2 - troponins and EKG in the absence of chest discomfort, however I do suggest she have a repeat stress test and this may be ordered outpatient Stress test was ordered, patient feels comfortable discharge home, she is discharged home hemodynamically stable in no acute distress Given low threshold to return should she have new or worsening complaints Medical Records Medical records reviewed: Yes I reviewed the patient's medical records. Lab Data Lab results reviewed: Yes I reviewed the patient's lab results. HPI General Mode of arrival: ambulatory . Date/Time Provider Initiated Documentation: 08/22/21 10:18 . Limitations to Documentation: no limitations . Information obtained by: patient . HPI Narrative: This complex 66-year-old female with history of CHF, cholangitis, coronary artery disease, hyperlipidemia, hypertension, Garcia syndrome CKD, iron deficiency anemia presents with report of epigastric discomfort and abdominal swelling. Patient states she has noticed some edema around her abdomen for the past several weeks. She states that over the past couple days she has had some epigastric pain. She denies any chest pain or shortness of breath. She has some intermittent nausea. She denies any exertional component to her symptoms. She denies known exacerbating or alleviating factors. She denies any radiation of pain. She denies any calf pain or swelling. She has had some mild swelling in the dorsal aspect of her feet. She does report approximately 5 pound weight gain in the past 2 months. She is taking diuretics as prescribed. She uses her nitroglycerin intermittently, she states that occasionally she has chest pain but she has not experienced any in the past 3 weeks. She denies cough, chest pain, shortness of breath. She is Covid vaccinated. She denies any known sick contacts. She is scheduled for outpatient cardiology evaluation in the next 3 weeks. Related Data Home Medications Medication Instructions Recorded Confirmed nitroglycerin 0.4 mg sublingual 0.4 mg SL Q5M PRN #100 tab 07/08/20 08/22/21 tablet pantoprazole 40 mg tablet,delayed 40 mg PO DAILY #90 tab-cap NS 10/23/20 08/22/21 release neuropaway 2 tab PO TID 11/07/20 08/22/21 acetaminophen 650 mg PO Q4H PRN PRN 01/28/21 08/22/21 calcium carbonate 500 - 1,000 mg PO Q4H PRN PRN 01/28/21 08/22/21 magnesium oxide 400 mg PO BID 02/17/21 08/22/21 melatonin 3 mg tablet 6 mg PO HS PRN tab 02/17/21 08/22/21 trazodone 50 mg tablet 25 mg PO QHS PRN tab 02/17/21 08/22/21 lancets 33 gauge #100 ea 02/27/21 08/22/21 ondansetron HCl 4 mg tablet 4 mg PO Q8H PRN #30 tab 02/27/21 08/22/21 blood-glucose meter #1 ea 03/25/21 08/22/21 blood sugar diagnostic #50 ea 03/27/21 08/22/21 lancets 30 gauge #100 ea 03/27/21 08/22/21 aspirin 81 mg tablet,delayed 81 mg PO DAILY 04/16/21 08/22/21 release clopidogrel 75 mg tablet 75 mg PO DAILY 04/16/21 08/22/21 duloxetine 30 mg capsule,delayed 30 mg PO DAILY 30 Days #30 cap 04/21/21 08/22/21 release metoprolol succinate 50 mg 50 mg PO DAILY #90 tab 04/22/21 08/22/21 tablet,extended release 24 hr torsemide 20 mg tablet 10 mg PO DAILY tab 04/23/21 08/22/21 oxycodone 5 mg tablet 2.5 mg PO BID PRN #10 tab MDD 1 05/01/21 08/22/21 tablet isosorbide mononitrate 30 mg 30 mg PO QAM 05/19/21 08/22/21 tablet,extended release 24 hr atorvastatin 40 mg tablet 40 mg PO HS #90 tab 06/17/21 08/22/21 lisinopril 2.5 mg tablet 2.5 mg PO DAILY 06/19/21 08/22/21 gabapentin 600 mg tablet,extended 600 mg PO QPM #30 tab 06/24/21 08/22/21 release 24 hr polyethylene glycol 3350 17 8.5 g PO BID PRN #510 g 07/04/21 08/22/21 gram/dose oral powder pen needle, diabetic 32 gauge x #100 ea 07/29/21 08/22/21 gabapentin 300 mg capsule 600 mg PO TID #180 cap MDD 900mg 08/20/21 08/22/21 insulin glargine 100 unit/mL (3 10 unit SUBCUT QAM #15 ml MDD 10 08/20/21 08/22/21 mL) subcutaneous pen units daily Previous Rx's Medication Instructions Recorded nitroglycerin 0.4 mg sublingual 0.4 mg SL Q5M PRN #100 tab 07/08/20 tablet pantoprazole 40 mg tablet,delayed 40 mg PO DAILY #90 tab-cap NS 10/23/20 release ondansetron HCl 4 mg tablet 4 mg PO Q8H PRN #30 tab 02/27/21 blood-glucose meter #1 ea 03/25/21 blood sugar diagnostic #50 ea 03/27/21 lancets 30 gauge #100 ea 03/27/21 duloxetine 30 mg capsule,delayed 30 mg PO DAILY 30 Days #30 cap 04/21/21 release metoprolol succinate 50 mg 50 mg PO DAILY #90 tab 04/22/21 tablet,extended release 24 hr oxycodone 5 mg tablet 2.5 mg PO BID PRN #10 tab MDD 1 05/01/21 tablet atorvastatin 40 mg tablet 40 mg PO HS #90 tab 06/17/21 gabapentin 600 mg tablet,extended 600 mg PO QPM #30 tab 06/24/21 release 24 hr polyethylene glycol 3350 17 8.5 g PO BID PRN #510 g 07/04/21 gram/dose oral powder pen needle, diabetic 32 gauge x #100 ea 07/29/21 gabapentin 300 mg capsule 600 mg PO TID #180 cap MDD 900mg 08/20/21 insulin glargine 100 unit/mL (3 10 unit SUBCUT QAM #15 ml MDD 10 08/20/21 mL) subcutaneous pen units daily Allergies Allergy/AdvReac Type Severity Reaction Status Date / Time metoclopramide [From Reglan] Allergy Verified 08/22/21 10:02 pollen extracts Allergy Verified 08/22/21 10:02 propoxyphene HCl AdvReac Nausea Verified 08/22/21 10:02 [From Darvon] General Stated Complaint: Abd Prob SHERIDAN: 3 Review of Systems All systems reviewed & are unremarkable except as noted in HPI and below [facility] Medical History (Updated 08/22/21 @ 14:22 by SHARI Sánchez) Anemia Anxiety Cholecystitis (~01/2021) Chronic pain disorder Hx Lyrica, Gabapentin, Opioids, Tramadol. D/C'd with mixed pain symptoms. Ortho surgery helped (2019). MJ helping. Claudication of left lower extremity Long Hx painful, cold feet w/ advanced CVD. Borderline LFT ADRY. [facility] [place] Vasc Dx mild atherosclerosis only. Ca deposits per Cardio. trial Rx? Cold feet Daytime somnolence Diabetic neuropathy a. Bilateral. ((old, presumed Dx? no clear Hx high A1Cs?)) Esophageal stricture Foot pain, bilateral Presumed neuropathy, but Hx SURG and nerve blocks .. original Dx? 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 Tubular adenoma (03/20/16) Surgical History Arthroplasty of knee Cholecystectomy (~2015) Endometrial Ablation H/O esophagogastroduodenoscopy (~12/25/20) History of cardiac cath (~02/07/21) [facility] [place] 3 vessel dx (LAD,LCX,RCA) w/elevated LV EDP Hx of colonoscopy (~12/25/20) 2020-Tubular adenomas x10 Oophrectomy, Left Repair of umbilical hernia with mesh Repair, Tendon or Muscle Achilles Family History Mother Diabetes Father Heart disease Substance abuse Brother Substance abuse Depression Heart disease Social History Smoking/Tobacco Use Status: Never Smoking risk assessment performed?: Yes Alcohol Intake: former Drug use: Occasionally Substance use type: marijuana Adopted: No Caregiver/Support person: No Foster care: No Household members: none Housing: house Do you need help understanding health information?: Rarely current occupation: [employer] Sexually active: No Do you think of yourself as: straight/heterosexual Current gender identity: female Do you feel safe at home: Yes Do you feel safe in your relationship?: Yes Additional Social history: lives alone Exam Const General: cooperative and comfortable Eyes Pupils: PERRL Resp Effort & Inspection: normal respiratory effort Auscultation: clear to auscultation bilaterally Cardio Rate: regular rate Rhythm: regular rhythm Heart Sounds: murmur GI Other: Mild epigastric and right upper quadrant tenderness, no rebound or guarding, no abdominal bruit or pulsatile mass No CVA tenderness Skin General skin exam: no rashes or lesions noted Neuro General: patient alert and patient oriented x3 Other: Neurovascularly intact, mild 1+ edema to bilateral dorsum feet, no calf swelling or tenderness Course Vital Signs Vital signs: Vital Signs Temperature 36.1 C L 08/22/21 09:59 Pulse 87 08/22/21 09:59 Respiratory Rate 18 08/22/21 09:59 Blood Pressure 150/64 H 08/22/21 09:59 Pulse Oximetry 97 08/22/21 09:59 Temperature 36.2 C L 08/22/21 11:16 Temperature Source Skin 08/22/21 11:16 Pulse 70 08/22/21 14:01 Pulse 74 08/22/21 14:01 Respiratory Rate 13 08/22/21 14:01 Respiratory Effort Non-Labored 08/22/21 10:03 Blood Pressure 132/60 08/22/21 14:01 Blood Pressure Mean 79 08/22/21 14:01 Blood Pressure Position Sitting 08/22/21 09:59 Pulse Oximetry 96 08/22/21 14:01 Oxygen Delivery Method Room Air 08/22/21 09:59 Oxygen Flow Rate 0 08/22/21 09:59 Pain Level 2 08/22/21 11:16 Lab/Test Results Lab/Test Results: Laboratory Tests Range/Units 08/22/21 08/22/21 08/22/21 10:20 10:20 10:20 WBC (4.4-10.8) 10^3/uL 5.58 RBC (3.93-5.22) 10^6/uL 3.63 L Hgb (11.2-15.7) g/dL 11.2 Hct (36.0-46.0) % 34.5 L MCV (80-95) fL 95.0 MCH (27.0-33.0) pg 30.9 MCHC (32.0-36.0) % 32.5 RDW (11.7-14.6) % 12.8 Plt Count (130-400) 10^3/uL 165 MPV (8.0-11.0) fL 10.3 Immature Gran % Neutrophils % Lymphocytes % Monocytes % Eosinophils % Basophils % Absolute Neutrophils (1.2-6.7) 10^3/uL Absolute Lymphocytes (1.2-3.4) 10^3/uL Absolute Monocytes (0.1-0.8) 10^3/uL Absolute Eosinophils (0.0-0.7) 10^3/uL Absolute Basophils (0.0-0.2) 10^3/uL Sodium (136-145) mmol/L 139 Potassium (3.5-5.1) mmol/L 4.0 Chloride (98-107) mmol/L 103 Carbon Dioxide (21.0-32.0) mmol/L 28.9 Anion Gap (3-11) mmol/L 7.1 BUN (7-18) mg/dL 46 H Creatinine (0.55-1.02) mg/dL 1.8 H Estimated GFR/1.73 m2 (mL/min/1.73m2) 27.98 Glucose (74-106) mg/dL 199 H Calcium (8.5-10.1) mg/dL 9.3 Total Bilirubin (0.2-1.0) mg/dL 0.5 AST (15-37) U/L 22 ALT (14-59) U/L 30 Alkaline Phosphatase (46-116) U/L 104 Troponin I (<0.06) ng/mL < 0.05 NT-Pro-B Natriuret Pep (<300) pg/mL 404 H Total Protein (6.4-8.2) g/dL 8.4 H Albumin (3.4-5.0) g/dL 3.8 Lipase (73-393) U/L 106 Range/Units 08/22/21 08/22/21 10:20 13:26 WBC (4.4-10.8) 10^3/uL RBC (3.93-5.22) 10^6/uL Hgb (11.2-15.7) g/dL Hct (36.0-46.0) % MCV (80-95) fL MCH (27.0-33.0) pg MCHC (32.0-36.0) % RDW (11.7-14.6) % Plt Count (130-400) 10^3/uL MPV (8.0-11.0) fL Immature Gran % 0.2 Neutrophils % 55.3 Lymphocytes % 34.9 Monocytes % 7.4 Eosinophils % 1.9 Basophils % 0.3 Absolute Neutrophils (1.2-6.7) 10^3/uL 3.20 Absolute Lymphocytes (1.2-3.4) 10^3/uL 2.02 Absolute Monocytes (0.1-0.8) 10^3/uL 0.43 Absolute Eosinophils (0.0-0.7) 10^3/uL 0.11 Absolute Basophils (0.0-0.2) 10^3/uL 0.02 Sodium (136-145) mmol/L Potassium (3.5-5.1) mmol/L Chloride (98-107) mmol/L Carbon Dioxide (21.0-32.0) mmol/L Anion Gap (3-11) mmol/L BUN (7-18) mg/dL Creatinine (0.55-1.02) mg/dL Estimated GFR/1.73 m2 (mL/min/1.73m2) Glucose (74-106) mg/dL Calcium (8.5-10.1) mg/dL Total Bilirubin (0.2-1.0) mg/dL AST (15-37) U/L ALT (14-59) U/L Alkaline Phosphatase (46-116) U/L Troponin I (<0.06) ng/mL < 0.05 NT-Pro-B Natriuret Pep (<300) pg/mL Total Protein (6.4-8.2) g/dL Albumin (3.4-5.0) g/dL Lipase (73-393) U/L
--- NOTE | 2021-08-22 14:37 | NUR.NOTE ---
Nursing Note: Referral faxed to DI for exercise stress test for chest pain Linda Stephens
== END 2021-08-22 14:50 | disposition home or self-care (01) ==
PROVIDERS: Emergency Provider Physician Assistant; PCP Student in an Organized Health Care Education/Training Program
DX: R10.13 Epigastric pain (principal); I11.0 Hypertensive heart disease with heart failure; I50.9 Heart failure, unspecified; R63.5 Abnormal weight gain; R10.11 Right upper quadrant pain
CPT/HCPCS: 36415; 80053; 83690; 85027; 93005; 99285; 71046; 74176; 83880; 84484; 85007; 93010; 99284

== ENCOUNTER 2021-08-29 10:00 | Outpatient (RCR) | payer MEDICARE, SELFPAY | END 2021-09-09 23:59 | disposition home or self-care (01) | LOC: CR 10:00 | PROVIDERS: PCP Student in an Organized Health Care Education/Training Program; Visit Provider Family Medicine | DX: Z51.89 Encounter for other specified aftercare (principal); I25.2 Old myocardial infarction; Z95.5 Presence of coronary angioplasty implant and graft | CPT/HCPCS: S9472 ==

== ENCOUNTER 2021-09-01 00:07 | Outpatient (CLI) | payer MEDICARE, SELFPAY ==
--- NOTE | 2021-09-01 08:00 | ETT_ITS ---
APPROVED REPORT Exam: Exercise Treadmill Patient Location: In-Patient Room/Bed: Stress Nurse: Pricila Koehler RN Ordering Provider:JADE BREAUX, Contact Number: BMI: 30.99 Baseline Rhythm: Sinus Rhythm Indications: Chest pain Medical History Medical History: CHF, CAD, HTN, HLD, DM, Diabetic neuropathy, GERD, Insomnia Cardiac Medications: Nitro SL, Metoprolol succinate, Magnesium oxide, Lisinopril, Isosorbide mononitr ate, Clopidogrel, Insulin glargine, Atorvastatin, Aspirin, Torsemide, Pantoprazole Allergies: Metoclopramide, Propoxyphene Cardiac Risk Factors: FHX of CAD, HTN, HTN, Diabetes (insulin) Previous Cardiac Procedures: PCI to LAD, LCx, RCA on 02/07/21 Pretest Chest Pain Characteristics: No chest pain Exercise History: Physically active Physical Disabilities: None Lung Sounds: Clear to auscultation Heart Sounds: Regular Stress Test Details Test: Exercise stress testing was performed using a Khanh protocol. Rest Stress HR Resting HR Supine: 75 bpm Max Heart Rate (APMHR): 152 bpm Resting HR Standin bpm Target HR (85% APMHR): 129 bpm Max HR Achieved: 145 bpm % of APMHR: 95 Recovery HR: 82 bpm HR response to stress: Normal HR response to stress Comment: Metoprolol succinate not held for this test. BP Resting BP Supine: 122/62 mmHg Resting BP Standin/58 mmHg Max BP: 164/72 mmHg Recovery BP: 126/62 mmHg BP response to stress: Normal blood pressure response to stress. ECG Resting ECG: Sinus Rhythm Ectopy: None Stress ECG: Sinus Tachycardia ST Change: No significant ST segment changes noted Arrhythmia: occasional PVCs Comment: Artifact during exercise. Recovery ECG: Sinus Rhythm Recovery Arrhythmia: occasional PVCs, PAC w/ noncompensatory pause Clinical Reason for Termination: Fatigue, Dyspnea Stress Symptoms: Dyspnea Exercise duration: 4 min55 sec Highest Stage Reached: Stage 2: 2.5 mph at 12% grade. Exercise capacity: 6.93 METs Davis Treadmill Score: 5 Rate Pressure Product: [id number] Stress ECG Conclusion 1. The resting electrocardiogram showed first-degree AV block, late R wave transition 2. The patient exercised on the Khanh protocol and completed a workload of 6.93 METS, limited by dysp taye 3. Normal heart rate and blood pressure response to exercise. The patient achieved 95% of predicted h eart rate for age 4. Electrocardiographically the test was negative for myocardial ischemia 5. There were no significant dysrhythmias Davis Treadmill Score is 5 which is Low risk. Stress Test Summary STAGE Time (mins) Speed (mph) Grade (%) HR BP SYMPTOMS METS Supine 75 122/62 Standing 75 124/58 1 3 1.7 10 124 134/64 mild SOB, SpO2 96% 4.6 2 6 2.5 12 mod SOB, SpO2 95% 7 1 min recovery 124 158/70 3 min recovery 102 164/72 6 min recovery 90 158/62 9 min recovery 82 126/62
== END 2021-09-01 00:27 ==
PROVIDERS: PCP Student in an Organized Health Care Education/Training Program; Visit Provider Physician Assistant
DX: R07.9 Chest pain, unspecified (principal); Z82.49 Family history of ischemic heart disease and other diseases of the circulatory system; I10 Essential (primary) hypertension; E11.9 Type 2 diabetes mellitus without complications; Z79.4 Long term (current) use of insulin; I44.0 Atrioventricular block, first degree
CPT/HCPCS: 93016; 93018; 93017

== ENCOUNTER 2021-11-11 01:07 | Outpatient (CLI) | payer MEDICARE, SELFPAY ==
--- NOTE | 2021-11-11 07:00 | DI.US_ITS ---
Exam(s) US ABDOMEN LIMITED EXAM: US ABDOMEN LIMITED CLINICAL HISTORY: eval RUQ; Hx (+) gallstones,ABD BLOATING,PAIN,H/O COMPLICATED PANCREATITIS, TECHNIQUE: Ultrasound abdomen performed using standard protocol. COMPARISON: US US ABDOMEN from 02/04/[address] ABDOMEN PELVIS WO from 08/22/2021 FINDINGS: PANCREAS: Normal where visualized. LIVER: Normal. Hepatopedal flow in the Portal Vein. The liver measures in 17.2 length. GALLBLADDER: Status post cholecystectomy. The complex fluid collection previously seen in the gallbl adder fossa is not present. There is a small cystic area in the gallbladder fossa which may represen t residual fluid collection or cystic duct remnant. This cystic area can be seen on the CT scan from 08/22/2021. BILIARY SYSTEM: Common bile duct measures < 7 mm. No intrahepatic biliary ductal dilation. RIGHT KIDNEY: Mild renal cortical atrophy. No evidence of renal calculi. No evidence of hydronephros is. No renal mass or cyst identified. ASCITES: None seen. IMPRESSION: 1. Status post cholecystectomy. 2. Resolution of the complex fluid collection previously seen in the gallbladder fossa. 3. There is a persistent small cystic area in the gallbladder fossa which can be seen and is unchange d compared to the CT scan from 08/22/2021. DATA REPOSITORY:
== END 2021-11-11 01:27 ==
LOC: DI 01:07
PROVIDERS: PCP Student in an Organized Health Care Education/Training Program; Visit Provider Student in an Organized Health Care Education/Training Program
DX: R10.11 Right upper quadrant pain (principal); R14.0 Abdominal distension (gaseous); Z90.49 Acquired absence of other specified parts of digestive tract
CPT/HCPCS: 76705

== ENCOUNTER 2021-11-13 03:00 | Outpatient (CLI) | payer MEDICARE, SELFPAY ==
[2021-11-13 10:16] LABS: HGB 11.3 g/dL (11.2-15.7)
[2021-11-13 10:37] LABS: Hemoglobin A1C 7.2 % (<5.7)
[2021-11-13 10:52] LABS: Anion Gap 7.5 mmol/L (3-11); BUN 55 mg/dL (7-18); CO2 28.5 mmol/L (21.0-32.0); CREATININE 2.1 mg/dL (0.55-1.02); Calcium 9.2 mg/dL (8.5-10.1); Chloride 103 mmol/L (98-107); Estimated GFR 23.42 (mL/min/1.73m2); Glucose 181 mg/dL (74-106); Potassium 5.5 mmol/L (3.5-5.1); Sodium 139 mmol/L (136-145)
== END 2021-11-13 03:01 | disposition home or self-care (01) ==
LOC: LBO 03:00
PROVIDERS: PCP Student in an Organized Health Care Education/Training Program; Visit Provider Internal Medicine Cardiovascular Disease
DX: E11.42 Type 2 diabetes mellitus with diabetic polyneuropathy (principal); I50.43 Acute on chronic combined systolic (congestive) and diastolic (congestive) heart failure; N18.4 Chronic kidney disease, stage 4 (severe); I25.10 Atherosclerotic heart disease of native coronary artery without angina pectoris; I50.9 Heart failure, unspecified; I13.0 Hypertensive heart and chronic kidney disease with heart failure and stage 1 through stage 4 chronic kidney disease, or unspecified chronic kidney disease; I08.0 Rheumatic disorders of both mitral and aortic valves; E11.22 Type 2 diabetes mellitus with diabetic chronic kidney disease
CPT/HCPCS: 36415; 80048; 99214; 83036; 85018; 99213

== ENCOUNTER → 2021-11-18 10:18 | Outpatient (BNVA) | payer MEDICARE, SELFPAY | PROVIDERS: PCP Student in an Organized Health Care Education/Training Program; Referring Provider Student in an Organized Health Care Education/Training Program; Visit Provider Surgery | DX: R10.11 Right upper quadrant pain (principal) | CPT/HCPCS: 99213 ==

== ENCOUNTER → 2021-11-20 09:35 | Outpatient (BNVA) | payer MEDICARE, SELFPAY | PROVIDERS: PCP Student in an Organized Health Care Education/Training Program; Referring Provider Student in an Organized Health Care Education/Training Program; Visit Provider Student in an Organized Health Care Education/Training Program | DX: M70.61 Trochanteric bursitis, right hip (principal); Z79.01 Long term (current) use of anticoagulants; I50.9 Heart failure, unspecified; Z95.5 Presence of coronary angioplasty implant and graft; N18.9 Chronic kidney disease, unspecified | CPT/HCPCS: 99213 ==

== ENCOUNTER 2021-12-10 01:57 | Outpatient (CLI) | payer MEDICARE, SELFPAY ==
[2021-12-10 14:06] LABS: Anion Gap 7.2 mmol/L (3-11); BUN 69 mg/dL (7-18); CO2 27.8 mmol/L (21.0-32.0); CREATININE 2.3 mg/dL (0.55-1.02); Chloride 104 mmol/L (98-107); Estimated GFR 21.09 (mL/min/1.73m2); Glucose 116 mg/dL (74-106); Sodium 139 mmol/L (136-145)
[2021-12-10 14:15] LABS: Potassium 6.2 mmol/L (3.5-5.1)
== END 2021-12-10 01:58 | disposition home or self-care (01) ==
LOC: LBO 01:57
PROVIDERS: PCP Student in an Organized Health Care Education/Training Program; Visit Provider Student in an Organized Health Care Education/Training Program
DX: E87.5 Hyperkalemia (principal); N28.9 Disorder of kidney and ureter, unspecified
CPT/HCPCS: 36415; 80048

== ENCOUNTER 2021-12-10 16:06 | Emergency (ER) | payer MEDICARE, SELFPAY ==
[2021-12-10] VITALS (17 sets, daily range): BP systolic 101–144; BP diastolic 42–63; PULSE 58–99; RESP 12–25; TEMP 36.3; O2SAT 69–100
--- NOTE | 2021-12-10 16:15 | RT.EKG_ITS ---
APPROVED REPORT Exam: Resting ECG Reason for Exam: hyperkalemia Patient Location: E HR:66 bpm ECG Measurements Heart Rate 66 AXIS OR 265 P 0 QRSd 87 QRS 13 QT 416 T 71 QTc 436 Conclusion Sinus rhythm...normal P axis, V-rate 60- 99 Prolonged OR interval...OR >220, V-rate 50- 90 prolonged OR interval, low voltage, non ischemic
[2021-12-10 16:44] LABS: Anion Gap 8.7 mmol/L (3-11); BUN 69 mg/dL (7-18); CO2 26.3 mmol/L (21.0-32.0); CREATININE 2.4 mg/dL (0.55-1.02); Calcium 8.7 mg/dL (8.5-10.1); Chloride 102 mmol/L (98-107); Estimated GFR 20.08 (mL/min/1.73m2); Potassium 5.7 mmol/L (3.5-5.1); Sodium 137 mmol/L (136-145)
[2021-12-10 16:53] LABS: Glucose 235 mg/dL (74-106)
[2021-12-10 17:43] LABS: Creatine Kinase 94 U/L (26-192)
[2021-12-10 18:16] LABS: Bilirubin Negative (Negative); Blood Trace-intact (Negative); Clarity Clear (Clear); Glucose Negative (Negative); Ketones Negative (Negative); Leukocyte Esterase Negative (Negative); Nitrite Negative (Negative); Urobilinogen 0.2 EU/dL (Up TO 0.2)
[2021-12-10 18:24] LABS: Bacteria Negative HPF (Negative); C & S Indicated? No; Casts Negative LPF (Negative); Crystals Negative HPF (Negative); Epithelial Cells Rare HPF (Negative); Mucus Negative (Negative); Other Cells Negative (Negative); RBC 0-2 HPF (0-2); WBC Negative HPF (0-5)
[2021-12-10] MEDS: CALCIUM GLUCONATE in NaCl 1 GM/50 ML BAG IVPB (18:37)
[2021-12-10] MEDS: Dextrose 50%-Water 25 GM/50 ML SYR IVP (18:37)
[2021-12-10] MEDS: Insulin REGULAR-Human 100 UNITS/ML UNIT IV (18:38)
[2021-12-10] MEDS: Normal Saline 500 ML IV (18:38)
--- NOTE | 2021-12-10 19:05 | ED.GENADUL_ITS ---
Discharge Plan Disposition Patient Disposition: HOME Condition: Stable Discharge Details Clinical Impression: Renal failure (ARF), acute on chronic, Acute hyperkalemia, Hypermagnesemia Primary Care Provider: Asia Gil ED Provider: Lalitha Macias Home Meds and New Rx's Prescriptions: Continued (DME) blood-glucose meter Kit See Rx Instructions .ROUTE .MEDSUPPLY Qty: 1 0RF Rx Instructions: One Touch Ultra please. ondansetron HCl [Zofran] 4 mg tablet 4 mg PO Q8H PRN (Reason: nausea and vomiting) Qty: 30 1RF neuropaway 2 tab PO TID 0RF Rx Instructions: 2 tabs TID; OTC B-vitamin, and ALA. 11/07/20 EO melatonin 3 mg tablet 6 mg PO HS PRN0RF trazodone 50 mg tablet 25 mg PO QHS PRN0RF Hold Instructions: Home Medication placed on hold at Doctor's office (DME) OneTouch Ultra Blue Test Strip Strip See Rx Instructions .ROUTE .MEDSUPPLY Qty: 50 2RF Rx Instructions: to check BS daily to keep A1c <8 Dx:E11.9 (DME) lancets [OneTouch Delica Lancets] 30 gauge misc See Rx Instructions .ROUTE .MEDSUPPLY Qty: 100 2RF Rx Instructions: to check BS daily to keep A1c <8 DM E11.9 aspirin [Adult Aspirin Regimen] 81 mg tablet,delayed release (DR/EC) 81 mg PO DAILY 0RF Rx Instructions: indefinitely per [facility] Echo results 04/16/21 clopidogrel 75 mg tablet 75 mg PO DAILY 0RF Rx Instructions: echo dated 04/16/21 daily x1 year then stop cgc metoprolol succinate 50 mg tablet extended release 24 hr 50 mg PO DAILY Qty: 90 3RF torsemide 20 mg tablet 10 mg PO DAILY 0RF Label Comments: cardiology [facility] [place] isosorbide mononitrate 30 mg tablet extended release 24 hr 30 mg PO QAM 0RF atorvastatin 40 mg tablet 40 mg PO HS Qty: 90 3RF polyethylene glycol 3350 [Miralax] 17 gram/dose powder 8.5 g PO BID PRN (Reason: constipation) Qty: 510 6RF (DME) pen needle, diabetic [BD Ultra-Fine Dionna Pen Needle] 32 gauge x needle See Rx Instructions .ROUTE .MEDSUPPLY Qty: 100 3RF Rx Instructions: Daily with lantus insulin for goal A1C <7% for E11.9 gabapentin 600 mg tablet extended release 24 hr 600 mg PO QPM Qty: 30 0RF Rx Instructions: Trial of ER duloxetine 30 mg capsule,delayed release(DR/EC) 30 mg PO DAILY 30 Days Qty: 30 5RF Lantus Solostar U-100 Insulin 100 unit/mL (3 mL) insulin pen 11 unit subcut QAM MDD 11 units daily Qty: 15 3RF Rx Instructions: For diabetes gabapentin 300 mg capsule 600 mg PO TID MDD 900mg Qty: 180 1RF Hold Instructions: Home Medication placed on hold at Doctor's office Rx Instructions: HOLD if ER started nitroglycerin 0.4 mg tablet, sublingual 0.4 mg SL Q5M PRN (Reason: chest pain) Qty: 100 0RF Rx Instructions: do not exceed 3 doses per episode pantoprazole 40 mg tablet,delayed release (DR/EC) 40 mg PO DAILY Qty: 90 3RF acetaminophen 325 mg Tablet 650 mg PO Q4H PRN PRN0RF calcium carbonate 500 mg calcium (1,250 mg) Tablet,Chewable 500 - 1,000 mg PO Q4H PRN PRN0RF Discontinued magnesium oxide 400 mg magnesium capsule 400 mg PO BID 0RF lisinopril 2.5 mg tablet 5 mg PO DAILY 0RF Label Comments: Per [facility] Cardiology note from 09/09/21 Discharge Instructions Additional Instructions: Skip your dose of torsemide this evening Have your labs rechecked in the morning, I have given you a lab slip to do so Work on increasing your oral hydration, at least 64 ounces of fluids daily Discontinue your magnesium for the next 2 days If your dose of worsening tonight Discontinue the supplements that you just started turmeric and the supplements her neuropathy Lisinopril for the next 2 days Call your doctor for reassessment tomorrow Please return immediately should you have new or worsening complaints Discharge Data Discharge Date/Time-TO BE ENTERED AT DEPARTURE: 12/10/21 20:07 Medical Decision Making Patient appears well She is alert and oriented She has a creatinine of 2.4 and a 6.2 She has history of renal failure and typically creatinine is around 1.8-1.9 after receiving lab, she has a mild increase She did recently start taking supplements turmeric and 1 for neuropathy She also is taking lisinopril and torsemide which may be contributing She was given calcium gluconate, insulin, and dextrose Her EKG does not show evidence of acute abnormality, specifically no evidence of hyperkalemia I did talk to Dr. Celeste regarding admission of the patient, however he feels that the patient can be appropriately managed by her primary care physician and recommend treating her by lowering her potassium, giving IV hydration, and rechecking a BMP I have ordered a repeat BMP for tomorrow and placed follow-up with PCP for tomorrow Patient prefers discharge home I feel comfortable discharge home She is alert and oriented and otherwise appears well and is asymptomatic She was given a dose of lokelma prior to leaving She is encouraged to return immediately should she have new or worsening complaints She will temporarily stop her torsemide and lisinopril for the next2 days Lab slip for BMP tomorrow PCP recheck tomorrow Return precautions discussed and patient expressed understanding HPI General Date/Time Provider Initiated Documentation: 12/10/21 16:14 . HPI Narrative: This 66-year-old female presents with report of hyperkalemia. Patient is complex, she has a history of coronary artery disease, hypertension, hyperlipide niki, renal failure and is presenting with hyperkalemia. She has been seen by her PCP. She is urinating without difficulty and denies any pain complaints. Denies any weakness or dizziness. She denies pain or shortness of breath. He did start on 3 approximately a month ago. She denies any additional new medications. Milligrams of torsemide and is also on 2.5 of lisinopril. Take these as prescribed. She denies any peripheral edema. She denies any additional complaints at this time. Related Data Home Medications Medication Instructions Recorded Confirmed neuropaway 2 tab PO TID 11/07/20 12/10/21 acetaminophen 325 mg tablet 650 mg PO Q4H PRN PRN 01/28/21 12/10/21 calcium carbonate 500 mg calcium 500 - 1,000 mg PO Q4H PRN PRN 01/28/21 12/10/21 (1,250 mg) chewable tablet melatonin 3 mg tablet 6 mg PO HS PRN tab 02/17/21 12/10/21 trazodone 50 mg tablet 25 mg PO QHS PRN tab 02/17/21 12/10/21 blood-glucose meter #1 ea 03/25/21 11/18/21 blood sugar diagnostic (OneTouch #50 ea 03/27/21 11/18/21 Ultra Blue Test Strip) lancets 30 gauge (OneTouch Delica #100 ea 03/27/21 11/18/21 Lancets) aspirin 81 mg tablet,delayed 81 mg PO DAILY 04/16/21 12/10/21 release (Adult Aspirin Regimen) clopidogrel 75 mg tablet 75 mg PO DAILY 04/16/21 12/10/21 metoprolol succinate 50 mg 50 mg PO DAILY #90 tab 04/22/21 12/10/21 tablet,extended release 24 hr torsemide 20 mg tablet 10 mg PO DAILY tab 04/23/21 12/10/21 isosorbide mononitrate 30 mg 30 mg PO QAM 05/19/21 12/10/21 tablet,extended release 24 hr atorvastatin 40 mg tablet 40 mg PO HS #90 tab 06/17/21 12/10/21 polyethylene glycol 3350 17 8.5 g PO BID PRN #510 g 07/04/21 12/10/21 gram/dose oral powder (Miralax) pen needle, diabetic 32 gauge x #100 ea 07/29/21 11/18/21 5/32 (BD Ultra-Fine Dionna Pen Needle) ondansetron HCl 4 mg tablet 4 mg PO Q8H PRN #30 tab 09/26/21 12/10/21 (Zofran) gabapentin 600 mg tablet,extended 600 mg PO QPM #30 tab 10/02/21 12/10/21 release 24 hr duloxetine 30 mg capsule,delayed 30 mg PO DAILY 30 Days #30 cap 10/18/21 12/10/21 release gabapentin 300 mg capsule 600 mg PO TID #180 cap MDD 900mg 10/23/21 12/10/21 insulin glargine 100 unit/mL (3 11 unit (0.11 mL) SUBCUT QAM #15 10/23/21 12/10/21 mL) subcutaneous pen (Lantus ml MDD 11 units daily Solostar U-100 Insulin) nitroglycerin 0.4 mg sublingual 0.4 mg SL Q5M PRN #100 tab 11/22/21 12/10/21 tablet pantoprazole 40 mg tablet,delayed 40 mg PO DAILY #90 tab-cap NS 11/22/21 12/10/21 release Previous Rx's Medication Instructions Recorded blood-glucose meter #1 ea 03/25/21 blood sugar diagnostic (OneTouch #50 ea 03/27/21 Ultra Blue Test Strip) lancets 30 gauge (OneTouch Delica #100 ea 03/27/21 Lancets) metoprolol succinate 50 mg 50 mg PO DAILY #90 tab 04/22/21 tablet,extended release 24 hr atorvastatin 40 mg tablet 40 mg PO HS #90 tab 06/17/21 polyethylene glycol 3350 17 8.5 g PO BID PRN #510 g 07/04/21 gram/dose oral powder (Miralax) pen needle, diabetic 32 gauge x #100 ea 07/29/21 (BD Ultra-Fine Dionna Pen Needle) ondansetron HCl 4 mg tablet 4 mg PO Q8H PRN #30 tab 09/26/21 (Zofran) gabapentin 600 mg tablet,extended 600 mg PO QPM #30 tab 10/02/21 release 24 hr duloxetine 30 mg capsule,delayed 30 mg PO DAILY 30 Days #30 cap 10/18/21 release gabapentin 300 mg capsule 600 mg PO TID #180 cap MDD 900mg 10/23/21 insulin glargine 100 unit/mL (3 11 unit (0.11 mL) SUBCUT QAM #15 10/23/21 mL) subcutaneous pen (Lantus ml MDD 11 units daily Solostar U-100 Insulin) nitroglycerin 0.4 mg sublingual 0.4 mg SL Q5M PRN #100 tab 11/22/21 tablet pantoprazole 40 mg tablet,delayed 40 mg PO DAILY #90 tab-cap NS 11/22/21 release Allergies Allergy/AdvReac Type Severity Reaction Status Date / Time metoclopramide [From Reglan] Allergy Verified 12/10/21 18:44 pollen extracts Allergy Verified 12/10/21 18:44 propoxyphene HCl AdvReac Nausea Verified 12/10/21 18:44 [From Darvon] General Stated Complaint: GenMedical SHERIDAN: 3 Review of Systems All systems reviewed & are unremarkable except as noted in HPI and below PFSH All Active Problems (Updated 12/10/21 @ 19:56 by SHARI Sánchez) Renal failure (ARF), acute on chronic (Acute) Acute hyperkalemia (Acute) Hypermagnesemia (Acute) Trochanteric bursitis, right hip (Acute) Mitral valve disease (Acute) Aortic valve stenosis, nonrheumatic (Acute) Peripheral vascular disease with claudication (Acute) per [facility], 09/09/21.. ABIs show MILD occlusive dz @ foot/toe, B/L (06/16/21). Hx CAD, NSTEMI (02/2021).. ASCVD (arteriosclerotic cardiovascular disease) (Chronic) S/P cardiac cath (Acute ~01/2021[place] [facility] [place] artery disease(LAD,LCX,RCA), elevated left ventricular end diastolic pressure CAD (coronary artery disease) (Chronic) on Echo 04/16/21:Obstructive LAD and LCX Non obstructive disease LM Stent insertion of the mild LAD lesion Dual Platelet recommended Congestive heart failure (Chronic ~02/2021) HFrEF (heart failure w/reduced ejection fraction) Acute on chronic combined systolic and diastolic CHF (congestive heart failure) (Acute) Per [facility] Cardiology note from 06/19/21 Heart failure with reduced ejection fraction (Acute) per [facility] Cardiology note from 06/19/21,, EF 40% on Echo, January 2021 KINGSLEY (obstructive sleep apnea) (Chronic) per Pulm ([facility]) .. decreasing pressure settings by Dr. 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 D/C'd with mixed pain symptoms. Ortho surgery helped (2019). MJ helping. Claudication of left lower extremity Long Hx painful, cold feet w/ advanced CVD. Borderline LFT ADRY. [facility] Vasc Dx mild atherosclerosis only. Ca deposits per Cardio. trial Rx? Cold feet Daytime somnolence Depression Diabetic neuropathy a. Bilateral. ((old, presumed Dx? no clear Hx high A1Cs?)) Fatigue Fluid collection of pancreas Foot pain, bilateral Presumed neuropathy, but Hx SURG and nerve blocks .. original Dx? 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 Distal from knees, B/L (left toes #4,5 seem ok).. 04/2021 Non-insulin dependent type 2 diabetes mellitus Hx acceptable A1C & Hypoglycemic episodes make for high risk mgmt ... HOLDing insulin, summer 2020. Pancreatic abscess (~01/17/21) Peripancreatic abscess Peripheral neuropathy Restless leg syndrome Doubting this Dx, 05/2020 Retroperitoneal abscess Sinus tachycardia Snoring Stressful life event affecting family Bro (had been in rehab, s/p ICU in 05/2020).. Tubular adenoma (~12/2020) Surgical History (Updated 11/14/21 @ 08:29 by Peyton Fallon RN) Arthroplasty of knee Cholecystectomy (~2015) Endometrial Ablation H/O esophagogastroduodenoscopy (~12/25/20) History of cardiac cath (~02/07/21) [facility] [place] 3 [place] dx (LAD,LCX,RCA) w/elevated LV EDP History of ERCP (~01/17/21) with cholangioscopy for removal of retained stones(unsuccessful) complicated by post ERCP pancreatitis Hx of colonoscopy (~12/25/20) 2020-Tubular adenomas x10 Oophrectomy, Left Repair of umbilical hernia with mesh Repair, Tendon or Muscle Achilles Family History Mother Diabetes Father Heart disease Substance abuse Brother Substance abuse Depression Heart disease Social History Smoking/Tobacco Use Status: Never Smoking risk assessment performed?: Yes Alcohol Intake: former Drug use: Occasionally Substance use type: marijuana Adopted: No Caregiver/Support person: No Foster care: No Household members: none Housing: house Do you need help understanding health information?: Rarely current occupation: [employer] Sexually active: No Do you think of yourself as: straight/heterosexual Current gender identity: female Do you feel safe at home: Yes Do you feel safe in your relationship?: Yes Additional Social history: lives alone Exam Const General: cooperative, comfortable and no acute distress Eyes Sclera: sclerae normal Resp Effort & Inspection: normal respiratory effort Auscultation: clear to auscultation bilaterally Cardio Rate: regular rate Rhythm: regular rhythm GI Other: No abdominal tenderness no CVA tenderness Skin General skin exam: no rashes or lesions noted Neuro General: patient alert and patient oriented x3 Extrem Other: No peripheral edema, distal pulses intact Course Vital Signs Vital signs: Vital Signs Temperature 36.3 C L 12/10/21 16:10 Pulse 99 H 12/10/21 16:10 Respiratory Rate 18 12/10/21 16:10 Blood Pressure 131/56 L 12/10/21 16:10 Pulse Oximetry 69 L 12/10/21 16:10 Temperature 36.3 C L 12/10/21 16:10 Pulse 64 12/10/21 17:15 Pulse 68 12/10/21 17:20 Respiratory Rate 18 12/10/21 17:20 Respiratory Effort 12/10/21 16:34 Respiratory Depth Normal 12/10/21 16:34 Respiratory Pattern Normal 12/10/21 16:34 Blood Pressure 115/51 L 12/10/21 17:15 Blood Pressure Mean 68 12/10/21 17:15 Blood Pressure Position Sitting 12/10/21 16:10 Pulse Oximetry 97 12/10/21 17:20 Oxygen Delivery Method Room Air 12/10/21 16:10 Oxygen Flow Rate 0 12/10/21 16:10 Pain Level 0 12/10/21 16:10 Comment 12/10/21 16:10 Lab/Test Results Lab/Test Results: Laboratory Tests Range/Units 12/10/21 12/10/21 12/10/21 16:30 16:30 17:50 Sodium (136-145) mmol/L 137 Potassium (3.5-5.1) mmol/L 5.7 H Chloride (98-107) mmol/L 102 Carbon Dioxide (21.0-32.0) mmol/L 26.3 Anion Gap (3-11) mmol/L 8.7 BUN (7-18) mg/dL 69 H Creatinine (0.55-1.02) mg/dL 2.4 H Estimated GFR/1.73 m2 (mL/min/1.73m2) 20.08 Glucose (74-106) mg/dL 235 H D Calcium (8.5-10.1) mg/dL 8.7 Magnesium (1.8-2.4) mg/dL 3.0 H Creatine Kinase (26-192) U/L 94 Urine Color (Yellow) Yellow Urine Clarity (Clear) Clear Urine pH (5-8) 6.0 Ur Specific [place] (1.005-1.025) 1.020 Urine Protein (Negative) mg/dL Negative Urine Ketones (Negative) mg/dL Negative Urine Blood (Negative) Trace-intact H Urine Nitrite (Negative) Negative Urine Bilirubin (Negative) Negative Urine Urobilinogen (Up TO 0.2) EU/dL 0.2 Ur Leukocyte Esterase (Negative) Negative Urine RBC (0-2) HPF 0-2 Urine WBC (0-5) HPF Negative Ur Epithelial Cells (Negative) HPF Rare Urine Crystals (Negative) HPF Negative Urine Bacteria (Negative) HPF Negative Urine Casts (Negative) LPF Negative Urine Mucus (Negative) Negative Urine Other (Negative) Negative Ur Culture Indicated? No Urine Glucose (Negative) mg/dL Negative Critical Care Time Critical Care Time Critical Care Time: Yes Total Critical Care Time: 45 Attestation: iv Calcium, iv insulin, dextrose, telemetry monitoring, diagnostic labs, PAWSS Have you Been Recently Intoxicated or Drunk Within the Last 30 days?: No Have you Ever Experienced Previous Episodes of Alcohol Withdrawal?: No Have you ever Experienced Withdrawal Seizures?: No Have you ever Experienced Delirium Tremens(DT)s?: No Have you ever undergone Alcohol Rehabilitation Treatment (i.e, inpt ot outpatient treatment programs)?: No Have you ever Experienced Blackouts?: No Have you ever Combined Alcohol with other Downers within the last 90 days?: No Have you ever Combined Alcohol with any other Substance of Abuse during the last 90 days?: No Positive Blood Alcohol level on Presentation? [PCS.BAL]: No Evidence of Increased Autonomic Activity (i.e. HR>120, tremor, sweating, agitation, nausea)?: No Result: 0
[2021-12-10] MEDS: Sodium Zirconium Cyclosilicate 10 GM PKT PO (19:14)
[2021-12-10 19:40] LABS: Anion Gap 6.2 mmol/L (3-11); BUN 68 mg/dL (7-18); CO2 27.8 mmol/L (21.0-32.0); CREATININE 2.2 mg/dL (0.55-1.02); Chloride 107 mmol/L (98-107); Potassium 4.9 mmol/L (3.5-5.1); Sodium 141 mmol/L (136-145)
[2021-12-10 19:51] LABS: Glucose 137 mg/dL (74-106)
--- NOTE | 2021-12-11 00:30 | NUR.NOTE ---
Faxed referral to [facility] for a follow up DARRON per Lalitha Macias for hyperkalemia and renal failure. Put in the respiratory care practitioner's box for follow up.
== END 2021-12-10 20:07 | disposition home or self-care (01) ==
PROVIDERS: Emergency Provider Physician Assistant; PCP Student in an Organized Health Care Education/Training Program
DX: E87.70 Fluid overload, unspecified (principal); I13.0 Hypertensive heart and chronic kidney disease with heart failure and stage 1 through stage 4 chronic kidney disease, or unspecified chronic kidney disease; E11.22 Type 2 diabetes mellitus with diabetic chronic kidney disease; N18.4 Chronic kidney disease, stage 4 (severe); I50.43 Acute on chronic combined systolic (congestive) and diastolic (congestive) heart failure; N17.9 Acute kidney failure, unspecified; E83.41 Hypermagnesemia
CPT/HCPCS: 36415; 80048; 82550; 93005; 96361; 96365; 96375; 99284; 81003; 81015; 83735; 93010

== ENCOUNTER 2021-12-11 11:09 | Outpatient (CLI) | payer MEDICARE, SELFPAY ==
[2021-12-11 12:19] LABS: ALT 26 U/L (14-59); AST 13 U/L (15-37); Albumin 3.9 g/dL (3.4-5.0); Alkaline Phosphatase 116 U/L (46-116); Anion Gap 9.2 mmol/L (3-11); BUN 66 mg/dL (7-18); Bilirubin, Total 0.4 mg/dL (0.2-1.0); CO2 25.8 mmol/L (21.0-32.0); CREATININE 2.3 mg/dL (0.55-1.02); Calcium 9.2 mg/dL (8.5-10.1); Chloride 103 mmol/L (98-107); Estimated GFR 21.09 (mL/min/1.73m2); Glucose 115 mg/dL (74-106); Potassium 5.5 mmol/L (3.5-5.1); Sodium 138 mmol/L (136-145); Total Protein 8.1 g/dL (6.4-8.2)
== END 2021-12-11 11:10 | disposition home or self-care (01) ==
LOC: LBO 11:10
PROVIDERS: PCP Student in an Organized Health Care Education/Training Program; Visit Provider Student in an Organized Health Care Education/Training Program
DX: E87.5 Hyperkalemia (principal); N19 Unspecified kidney failure
CPT/HCPCS: 36415; 80053

== ENCOUNTER 2021-12-12 15:25 | Outpatient (CLI) | payer MEDICARE, SELFPAY ==
[2021-12-12 15:26] LABS: BUN 49 mg/dL (7-18); CREATININE 2.2 mg/dL (0.55-1.02); Calcium 8.8 mg/dL (8.5-10.1); Chloride 108 mmol/L (98-107); Glucose 160 mg/dL (74-106); Magnesium 2.5 mg/dL (1.8-2.4); PHOSPHORUS 3.9 mg/dL (2.6-4.7); Potassium 5.4 mmol/L (3.5-5.1); Sodium 140 mmol/L (136-145)
== END 2021-12-12 15:26 | disposition home or self-care (01) ==
LOC: LBO 15:25
PROVIDERS: PCP Student in an Organized Health Care Education/Training Program; Visit Provider Student in an Organized Health Care Education/Training Program
DX: E83.41 Hypermagnesemia (principal); E87.5 Hyperkalemia; N17.9 Acute kidney failure, unspecified; N18.9 Chronic kidney disease, unspecified
CPT/HCPCS: 36415; 80048; 83735; 84100

== ENCOUNTER → 2021-12-15 10:16 | Outpatient (BNVA) | payer MEDICARE, SELFPAY | PROVIDERS: PCP Student in an Organized Health Care Education/Training Program; Referring Provider Student in an Organized Health Care Education/Training Program | DX: M70.61 Trochanteric bursitis, right hip (principal) | CPT/HCPCS: 20610; J1040 ==

== ENCOUNTER 2021-12-15 14:03 | Outpatient (CLI) | payer MEDICARE, SELFPAY ==
[2021-12-15 14:04] LABS: BUN 44 mg/dL (7-18); CREATININE 1.7 mg/dL (0.55-1.02); Calcium 9.3 mg/dL (8.5-10.1); Chloride 108 mmol/L (98-107); Estimated GFR 29.89 (mL/min/1.73m2); Glucose 178 mg/dL (74-106); Potassium 4.8 mmol/L (3.5-5.1); Sodium 142 mmol/L (136-145)
== END 2021-12-15 14:04 | disposition home or self-care (01) ==
LOC: LBO 14:04
PROVIDERS: PCP Student in an Organized Health Care Education/Training Program; Visit Provider Student in an Organized Health Care Education/Training Program
DX: N17.9 Acute kidney failure, unspecified (principal); N18.9 Chronic kidney disease, unspecified; E83.49 Other disorders of magnesium metabolism
CPT/HCPCS: 36415; 80048

== ENCOUNTER 2021-12-17 03:53 | Outpatient (CLI) | payer MEDICARE, SELFPAY ==
[2021-12-17 13:09] LABS: Anion Gap 9.8 mmol/L (3-11); BUN 50 mg/dL (7-18); CO2 25.2 mmol/L (21.0-32.0); CREATININE 1.8 mg/dL (0.55-1.02); Calcium 9.3 mg/dL (8.5-10.1); Chloride 104 mmol/L (98-107); Estimated GFR 27.98 (mL/min/1.73m2); Glucose 168 mg/dL (74-106); Potassium 5.1 mmol/L (3.5-5.1); Sodium 139 mmol/L (136-145)
== END 2021-12-17 03:54 | disposition home or self-care (01) ==
LOC: LBO 03:53
PROVIDERS: PCP Student in an Organized Health Care Education/Training Program; Visit Provider Internal Medicine
DX: E87.5 Hyperkalemia (principal); N17.9 Acute kidney failure, unspecified; N18.9 Chronic kidney disease, unspecified
CPT/HCPCS: 36415; 80048

== ENCOUNTER 2021-12-23 15:49 | Outpatient (CLI) | payer MEDICARE, SELFPAY ==
[2021-12-23 13:48] LABS: Anion Gap 7.9 mmol/L (3-11); BUN 76 mg/dL (7-18); CO2 30.1 mmol/L (21.0-32.0); Calcium 9.6 mg/dL (8.5-10.1); Chloride 100 mmol/L (98-107); Estimated GFR 24.78 (mL/min/1.73m2); Glucose 117 mg/dL (74-106); Sodium 138 mmol/L (136-145)
== END 2021-12-23 15:50 | disposition home or self-care (01) ==
LOC: LBO 15:57
PROVIDERS: PCP Student in an Organized Health Care Education/Training Program; Visit Provider Student in an Organized Health Care Education/Training Program
DX: E87.5 Hyperkalemia (principal); N17.9 Acute kidney failure, unspecified
CPT/HCPCS: 36415; 80048

== ENCOUNTER 2022-01-05 03:31 | Outpatient (CLI) | payer MEDICARE, SELFPAY ==
[2022-01-05 11:14] LABS: HCT 36.6 % (36.0-46.0); HGB 11.7 g/dL (11.2-15.7); MCV 97.1 fL (80-95); MPV 9.9 fL (8.0-11.0); Platelet Count 139 10^3/uL (130-400); RBC 3.77 10^6/uL (3.93-5.22); RDW 12.7 % (11.7-14.6); RDW-SD 44.9 fL; WBC 5.63 10^3/uL (4.4-10.8)
[2022-01-05 12:11] LABS: Anion Gap 8.4 mmol/L (3-11); BUN 43 mg/dL (7-18); CO2 28.6 mmol/L (21.0-32.0); CREATININE 1.6 mg/dL (0.55-1.02); Calcium 9.1 mg/dL (8.5-10.1); Chloride 104 mmol/L (98-107); Estimated GFR 32.05 (mL/min/1.73m2); Glucose 199 mg/dL (74-106); Potassium 4.3 mmol/L (3.5-5.1); Sodium 141 mmol/L (136-145)
== END 2022-01-05 03:32 | disposition home or self-care (01) ==
LOC: LBO 03:32
PROVIDERS: PCP Student in an Organized Health Care Education/Training Program; Visit Provider Internal Medicine
DX: K75.81 Nonalcoholic steatohepatitis (NASH) (principal); K74.60 Unspecified cirrhosis of liver; Z86.2 Personal history of diseases of the blood and blood-forming organs and certain disorders involving the immune mechanism
CPT/HCPCS: 36415; 80048; 85027

== ENCOUNTER → 2022-01-15 11:09 | Outpatient (BNVA) | payer MEDICARE, SELFPAY | PROVIDERS: PCP Student in an Organized Health Care Education/Training Program; Referring Provider Student in an Organized Health Care Education/Training Program; Visit Provider Student in an Organized Health Care Education/Training Program | DX: M70.61 Trochanteric bursitis, right hip (principal) | CPT/HCPCS: 99212 ==

== ENCOUNTER 2022-01-19 02:38 | Outpatient (CLI) | payer MEDICARE, SELFPAY ==
[2022-01-19 12:19] LABS: Anion Gap 8.2 mmol/L (3-11); BUN 43 mg/dL (7-18); CO2 31.8 mmol/L (21.0-32.0); CREATININE 1.6 mg/dL (0.55-1.02); Calcium 9.5 mg/dL (8.5-10.1); Chloride 103 mmol/L (98-107); Estimated GFR 32.05 (mL/min/1.73m2); Glucose 148 mg/dL (74-106); Potassium 4.5 mmol/L (3.5-5.1); Sodium 143 mmol/L (136-145)
== END 2022-01-19 02:39 | disposition home or self-care (01) ==
LOC: LBO 02:38
PROVIDERS: PCP Student in an Organized Health Care Education/Training Program; Visit Provider Internal Medicine
DX: N18.9 Chronic kidney disease, unspecified (principal)
CPT/HCPCS: 36415; 80048

== ENCOUNTER 2022-02-02 03:14 | Outpatient (CLI) | payer MEDICARE, SELFPAY ==
--- NOTE | 2022-02-02 06:45 | DI.MRI_ITS ---
Exam(s) MR ABDOMEN WO EXAM: MR ABDOMEN WO CLINICAL HISTORY: RUQ pain, ? retained CBD stone,R10.11 TECHNIQUE: Multiplanar multisequence MRA of the Abdomen was performed. COMPARISON: CT CT ABDOMEN PELVIS WO from 08/22/2021 US US ABDOMEN LIMITED from 11/11/2021 FINDINGS: Liver: Unremarkable. Pancreas: Unremarkable. Gallbladder and Bile Ducts: Status post cholecystectomy. No biliary ductal dilatation. No filling d efects are seen to suggest a retained stone. The fluid containing area in the gallbladder fossa does not appear to be connected to the biliary system. This may represent a small seroma or postsurgical collection. Abscess is considered less likely. Adrenals: Unremarkable. Kidneys: There are stable bilateral renal cysts. Spleen: Unremarkable. Bowel: There were few diverticula seen in the descending and sigmoid colon, but no evidence of acute diverticulitis. Aorta: Unremarkable. Soft Tissues: Unremarkable. Bone: Unremarkable. Lymph Nodes: Unremarkable. IMPRESSION: Status post cholecystectomy. No evidence of biliary ductal dilatation or retained stone. DATA REPOSITORY:
== END 2022-02-02 03:34 ==
LOC: DI 03:14
PROVIDERS: PCP Student in an Organized Health Care Education/Training Program; Visit Provider Surgery
DX: R10.11 Right upper quadrant pain (principal); Z90.49 Acquired absence of other specified parts of digestive tract
CPT/HCPCS: 74181

== ENCOUNTER 2022-02-09 02:05 | Outpatient (CLI) | payer MEDICARE, SELFPAY ==
[2022-02-09 11:57] LABS: Anion Gap 8.7 mmol/L (3-11); BUN 36 mg/dL (7-18); CO2 29.3 mmol/L (21.0-32.0); CREATININE 1.5 mg/dL (0.55-1.02); Calcium 8.8 mg/dL (8.5-10.1); Chloride 103 mmol/L (98-107); Estimated GFR 34.53 (mL/min/1.73m2); Glucose 198 mg/dL (74-106); Sodium 141 mmol/L (136-145)
== END 2022-02-09 02:06 | disposition home or self-care (01) ==
LOC: LBO 02:05
PROVIDERS: PCP Student in an Organized Health Care Education/Training Program; Visit Provider Internal Medicine
DX: N18.9 Chronic kidney disease, unspecified (principal)
CPT/HCPCS: 36415; 80048

== ENCOUNTER 2022-02-23 03:16 | Outpatient (CLI) | payer MEDICARE, SELFPAY ==
[2022-02-23 12:10] LABS: Anion Gap 8.9 mmol/L (3-11); BUN 37 mg/dL (7-18); CO2 29.1 mmol/L (21.0-32.0); CREATININE 1.4 mg/dL (0.55-1.02); Calcium 9.4 mg/dL (8.5-10.1); Chloride 102 mmol/L (98-107); Estimated GFR 37.39 (mL/min/1.73m2); Glucose 142 mg/dL (74-106); Potassium 4.8 mmol/L (3.5-5.1); Sodium 140 mmol/L (136-145)
== END 2022-02-23 03:17 | disposition home or self-care (01) ==
LOC: LBO 03:16
PROVIDERS: PCP Student in an Organized Health Care Education/Training Program; Visit Provider Internal Medicine
DX: N18.9 Chronic kidney disease, unspecified (principal)
CPT/HCPCS: 36415; 80048

== ENCOUNTER 2022-03-10 02:53 | Outpatient (CLI) | payer MEDICARE, SELFPAY ==
[2022-03-10 12:23] LABS: ALT 36 U/L (14-59); AST 14 U/L (15-37); Albumin 3.8 g/dL (3.4-5.0); Alkaline Phosphatase 124 U/L (46-116); Anion Gap 11.1 mmol/L (3-11); BUN 47 mg/dL (7-18); Bilirubin, Total 0.5 mg/dL (0.2-1.0); CO2 23.9 mmol/L (21.0-32.0); CREATININE 1.9 mg/dL (0.55-1.02); Calcium 9.2 mg/dL (8.5-10.1); Calculated LDL 97 mg/dL (<100); Chloride 101 mmol/L (98-107); Cholesterol 186 mg/dL (<200); Estimated GFR 26.29 (mL/min/1.73m2); Glucose 322 mg/dL (74-106); HDL Cholesterol 51 mg/dL (40-60); Potassium 4.4 mmol/L (3.5-5.1); Sodium 136 mmol/L (136-145); Total Protein 7.6 g/dL (6.4-8.2); Triglyceride 192 mg/dL (<150)
== END 2022-03-10 02:54 | disposition home or self-care (01) ==
LOC: LBO 02:54
PROVIDERS: PCP Student in an Organized Health Care Education/Training Program; Visit Provider Internal Medicine
DX: I10 Essential (primary) hypertension (principal); K74.60 Unspecified cirrhosis of liver; K75.81 Nonalcoholic steatohepatitis (NASH); N18.4 Chronic kidney disease, stage 4 (severe); E78.5 Hyperlipidemia, unspecified
CPT/HCPCS: 36415; 80053; 80061

== ENCOUNTER 2022-03-19 02:21 | Outpatient (CLI) | payer MEDICARE, SELFPAY ==
[2022-03-19 11:16] LABS: Anion Gap 11.6 mmol/L (3-11); BUN 48 mg/dL (7-18); CO2 27.4 mmol/L (21.0-32.0); CREATININE 1.7 mg/dL (0.55-1.02); Calcium 9.2 mg/dL (8.5-10.1); Chloride 99 mmol/L (98-107); Estimated GFR 29.89 (mL/min/1.73m2); Glucose 234 mg/dL (74-106); Potassium 4.3 mmol/L (3.5-5.1); Sodium 138 mmol/L (136-145)
== END 2022-03-19 02:22 | disposition home or self-care (01) ==
LOC: LBO 02:21
PROVIDERS: PCP Student in an Organized Health Care Education/Training Program; Visit Provider Student in an Organized Health Care Education/Training Program
DX: N18.4 Chronic kidney disease, stage 4 (severe) (principal); Z86.39 Personal history of other endocrine, nutritional and metabolic disease; M70.61 Trochanteric bursitis, right hip
CPT/HCPCS: 36415; 80048; 99213

== ENCOUNTER 2022-04-27 02:21 | Outpatient (CLI) | payer MEDICARE, SELFPAY ==
[2022-04-27 16:49] LABS: Anion Gap 11.1 mmol/L (3-11); BUN 75 mg/dL (7-18); CO2 25.9 mmol/L (21.0-32.0); CREATININE 2.1 mg/dL (0.55-1.02); Calcium 8.8 mg/dL (8.5-10.1); Chloride 97 mmol/L (98-107); Estimated GFR 23.35 (mL/min/1.73m2); Glucose 235 mg/dL (74-106); Potassium 4.1 mmol/L (3.5-5.1); Sodium 134 mmol/L (136-145)
== END 2022-04-27 02:22 | disposition home or self-care (01) ==
LOC: LBO 02:22
PROVIDERS: PCP Student in an Organized Health Care Education/Training Program; Visit Provider Student in an Organized Health Care Education/Training Program
DX: N18.4 Chronic kidney disease, stage 4 (severe) (principal); I10 Essential (primary) hypertension; D64.9 Anemia, unspecified
CPT/HCPCS: 36415; 80048

== ENCOUNTER 2022-05-21 00:54 | Outpatient (CLI) | payer MEDICARE, SELFPAY ==
--- NOTE | 2022-05-21 07:30 | DI.RAD_ITS ---
Exam(s) XR FOOT LT COMPLETE EXAM: XR FOOT LT COMPLETE CLINICAL HISTORY: evaluate new inner foot pain (bone prominence?)m79.672. TECHNIQUE: 2D digital imaging was performed. COMPARISON: CR XR FOOT LT COMPLETE from 05/31/2020 FINDINGS: 3 views No evidence of fracture or diastasis of the Lisfranc joint. Again noted is unchanged deformity of th e proximal phalanx of the 5th toe which is probably postsurgical. No radiographic evidence of osteom yelitis at this level nor elsewhere in the foot. Moderate size inferior calcaneal spur is again note d. No pes planus. Minimal degenerative changes. No osseous lesions nor erosions. IMPRESSION: No significant change from 05/31/2020, 2 years ago. DATA REPOSITORY: RADIATION DOSE DELIVERED:
== END 2022-05-21 01:14 ==
LOC: DI 00:54
PROVIDERS: PCP Student in an Organized Health Care Education/Training Program; Visit Provider Student in an Organized Health Care Education/Training Program
DX: M79.672 Pain in left foot (principal); M20.62 Acquired deformities of toe(s), unspecified, left foot; M77.32 Calcaneal spur, left foot
CPT/HCPCS: 73630

== ENCOUNTER 2022-06-18 03:08 | Outpatient (CLI) | payer MEDICARE, SELFPAY ==
[2022-06-18 08:36] LABS: HCT 33.6 % (36.0-46.0); HGB 10.8 g/dL (11.2-15.7); MCH 31.1 pg (27.0-33.0); MCHC 32.1 % (32.0-36.0); MCV 97 fL (80-95); MPV 9.7 fL (8.0-11.0); Platelet Count 165 10^3/uL (130-400); RBC 3.47 10^6/uL (3.93-5.22); RDW 12.4 % (11.7-14.6); RDW-SD 43.3 fL; WBC 6.45 10^3/uL (4.4-10.8)
[2022-06-18 08:49] LABS: ALT 47 U/L (14-59); AST 16 U/L (15-37); Albumin 3.7 g/dL (3.4-5.0); Alkaline Phosphatase 108 U/L (46-116); Anion Gap 7.7 mmol/L (3-11); BUN 56 mg/dL (7-18); Bilirubin, Total 0.3 mg/dL (0.2-1.0); CO2 29.3 mmol/L (21.0-32.0); CREATININE 1.7 mg/dL (0.55-1.02); Calcium 9.1 mg/dL (8.5-10.1); Chloride 103 mmol/L (98-107); Estimated GFR 32.26 (mL/min/1.73m2); Glucose 167 mg/dL (74-106); Potassium 4.1 mmol/L (3.5-5.1); Sodium 140 mmol/L (136-145); Total Protein 8.3 g/dL (6.4-8.2)
[2022-06-18 09:42] LABS: Iron 67 ug/dL (50-170); Total Iron Binding Capacity 295 ug/dL (250-450); Transferrin Sat 23 % (15-50)
== END 2022-06-18 03:09 | disposition home or self-care (01) ==
LOC: LBO 03:09
PROVIDERS: PCP Student in an Organized Health Care Education/Training Program; Visit Provider Student in an Organized Health Care Education/Training Program
DX: N18.4 Chronic kidney disease, stage 4 (severe)
CPT/HCPCS: 36415; 80053; 85027; 83540; 83550

== ENCOUNTER 2022-07-01 12:55 | Outpatient (CLI) | payer MEDICARE, SELFPAY ==
--- NOTE | 2022-07-01 11:45 | DI.RAD_ITS ---
Exam(s) XR FOOT LT COMPLETE EXAM: XR FOOT LT COMPLETE CLINICAL HISTORY: Pain in LT foot-M79.672. Enthesopathy-M77.50. Tendinitis of ankle. TECHNIQUE: 2D digital imaging was performed. COMPARISON: CR XR FOOT LT COMPLETE from 05/21/2022 FINDINGS: 3 views Three weight-bearing views reveal no evidence of fracture or diastasis of the Lisfranc joint. Great toe metatarsophalangeal joint appears unremarkable bone density age-appropriate. No osseous lesions nor erosions evident. Moderate size inferior calcaneal spur noted. Again noted is amputation of the head of the proximal phalanx of the 5th toe and fusion across the distal interphalangeal joint the 5 th toe. IMPRESSION: DATA REPOSITORY: RADIATION DOSE DELIVERED:
--- NOTE | 2022-07-01 11:45 | DI.RAD_ITS ---
Exam(s) XR FOOT RT COMPLETE EXAM: XR FOOT RT COMPLETE CLINICAL HISTORY: Pain in RT foot--M79.671. ENTHESOPATHY--m77.50. Tendinitis of ankle. TECHNIQUE: 2D digital imaging was performed. COMPARISON: CR XR FOOT LT COMPLETE from 07/01/2022 FINDINGS: 3 views No evidence of fracture or diastasis of the Lisfranc joint. No pes planus. Moderate size inferior c alcaneal spur is noted. No obvious degenerative changes nor erosions. Some vascular calcification i s noted in the foot. No evidence of osteomyelitis. Great toe metatarsophalangeal joint appears unre markable. No osseous lesions. No erosions. IMPRESSION: DATA REPOSITORY: RADIATION DOSE DELIVERED:
== END 2022-07-01 13:15 ==
LOC: DI 12:56
PROVIDERS: PCP Student in an Organized Health Care Education/Training Program; Visit Provider Podiatrist Foot & Ankle Surgery
DX: M77.32 Calcaneal spur, left foot; M77.31 Calcaneal spur, right foot
CPT/HCPCS: 73630

== ENCOUNTER 2022-07-31 01:57 | Outpatient (CLI) | payer MEDICARE, SELFPAY ==
[2022-07-31 09:37] LABS: Anion Gap 9.1 mmol/L (3-11); BUN 29 mg/dL (7-18); CO2 28.9 mmol/L (21.0-32.0); CREATININE 1.4 mg/dL (0.55-1.02); Calcium 9.6 mg/dL (8.5-10.1); Chloride 103 mmol/L (98-107); Estimated GFR 40.73 (mL/min/1.73m2); Glucose 187 mg/dL (74-106); Potassium 4.3 mmol/L (3.5-5.1); Sodium 141 mmol/L (136-145)
[2022-07-31 13:39] LABS: Iron 57 ug/dL (50-170); Total Iron Binding Capacity 371 ug/dL (250-450); Transferrin Sat 15 % (15-50)
== END 2022-07-31 01:58 | disposition home or self-care (01) ==
LOC: LBO 01:57
PROVIDERS: PCP Student in an Organized Health Care Education/Training Program; Visit Provider Student in an Organized Health Care Education/Training Program
DX: N18.4 Chronic kidney disease, stage 4 (severe) (principal); K74.60 Unspecified cirrhosis of liver; K75.81 Nonalcoholic steatohepatitis (NASH)
CPT/HCPCS: 36415; 80048; 83540; 83550

== ENCOUNTER 2022-08-28 01:12 | Outpatient (CLI) | payer MEDICARE, SELFPAY ==
[2022-08-28 11:05] LABS: BUN 38 mg/dL (7-18); CREATININE 1.5 mg/dL (0.55-1.02); Calcium 9.4 mg/dL (8.5-10.1); Chloride 101 mmol/L (98-107); Estimated GFR 37.49 (mL/min/1.73m2); Folate 18.8 ng/mL (8.6-20.0); Glucose 277 mg/dL (74-106); Potassium 4.4 mmol/L (3.5-5.1); Sodium 136 mmol/L (136-145); Vitamin B12 722 pg/mL (193-986)
[2022-08-28 11:06] LABS: Iron 72 ug/dL (50-170)
[2022-08-28 19:38] LABS: CRP, High Sensitivity 0.58 mg/L (See Note); Rheumatoid Factor <8.6 IU/mL (<12.0)
[2022-08-31 11:54] LABS: Lyme Ab w Rflx to Lyme Confirm Negative (Negative)
[2022-08-31 19:45] LABS: Anaplasma phagocytophilum Negative (Negative); B. miyamotoi PCR Negative (Negative); Babesia divergens/MO-1 Negative (Negative); Babesia duncani Negative (Negative); Babesia microti Negative (Negative); Ehrlichia chaffeensis Negative (Negative); Ehrlichia ewingii/canis Negative (Negative); Ehrlichia muris eauclairensis Negative (Negative)
== END 2022-08-28 01:13 | disposition home or self-care (01) ==
LOC: LBO 01:12
PROVIDERS: PCP Student in an Organized Health Care Education/Training Program; Visit Provider Student in an Organized Health Care Education/Training Program
DX: K76.9 Liver disease, unspecified (principal); G62.9 Polyneuropathy, unspecified; M77.9 Enthesopathy, unspecified; N18.4 Chronic kidney disease, stage 4 (severe)
CPT/HCPCS: 36415; 80048; 86141; 87798; 82607; 82746; 83540; 86431; 86618

== ENCOUNTER 2022-09-25 01:09 | Outpatient (CLI) | payer MEDICARE, SELFPAY ==
[2022-09-25 10:06] LABS: Lab Add On Test DONE
[2022-09-25 10:26] LABS: Hemoglobin A1C 7.1 % (<5.7)
[2022-09-25 11:33] LABS: Anion Gap 5.4 mmol/L (3-11); BUN 41 mg/dL (7-18); CO2 32.6 mmol/L (21.0-32.0); CREATININE 1.5 mg/dL (0.55-1.02); Calcium 10.1 mg/dL (8.5-10.1); Chloride 102 mmol/L (98-107); Estimated GFR 37.49 (mL/min/1.73m2); Glucose 141 mg/dL (74-106); Potassium 4.1 mmol/L (3.5-5.1); Sodium 140 mmol/L (136-145)
== END 2022-09-25 01:10 | disposition home or self-care (01) ==
LOC: LBO 01:09
PROVIDERS: PCP Student in an Organized Health Care Education/Training Program; Visit Provider Student in an Organized Health Care Education/Training Program
DX: R73.09 Other abnormal glucose (principal); R79.89 Other specified abnormal findings of blood chemistry
CPT/HCPCS: 80048; 83036

== ENCOUNTER → 2022-11-03 12:42 | Outpatient (BNVA) | payer MEDICARE, SELFPAY | PROVIDERS: PCP Student in an Organized Health Care Education/Training Program; Referring Provider Student in an Organized Health Care Education/Training Program; Visit Provider Psychiatry & Neurology Neurology | DX: F10.21 Alcohol dependence, in remission (principal); M77.52 Other enthesopathy of left foot and ankle; E11.42 Type 2 diabetes mellitus with diabetic polyneuropathy | CPT/HCPCS: 99214 ==

== ENCOUNTER 2022-11-12 03:22 | Outpatient (CLI) | payer MEDICARE, SELFPAY ==
[2022-11-12 10:53] LABS: HCT 38.7 % (36.0-46.0); HGB 12.2 g/dL (11.2-15.7); MCH 31.2 pg (27.0-33.0); MCHC 31.5 % (32.0-36.0); MCV 99 fL (80-95); MPV 9.8 fL (8.0-11.0); Platelet Count 163 10^3/uL (130-400); RBC 3.91 10^6/uL (3.93-5.22); RDW 13.1 % (11.7-14.6); RDW-SD 47.4 fL; WBC 7.42 10^3/uL (4.4-10.8)
[2022-11-12 11:43] LABS: ALT 34 U/L (14-59); AST 19 U/L (15-37); Albumin 4.1 g/dL (3.4-5.0); Alkaline Phosphatase 99 U/L (46-116); BUN 43 mg/dL (7-18); Bilirubin, Total 0.4 mg/dL (0.2-1.0); CREATININE 1.7 mg/dL (0.55-1.02); Calcium 9.8 mg/dL (8.5-10.1); Chloride 104 mmol/L (98-107); Estimated GFR 32.26 (mL/min/1.73m2); Ferritin 35 ng/mL (8-252); Glucose 159 mg/dL (74-106); Potassium 4.5 mmol/L (3.5-5.1); Sodium 141 mmol/L (136-145); Total Protein 8.3 g/dL (6.4-8.2)
[2022-11-12 11:50] LABS: Iron 80 ug/dL (50-170); Total Iron Binding Capacity 353 ug/dL (250-450); Transferrin Sat 23 % (15-50)
== END 2022-11-12 03:23 | disposition home or self-care (01) ==
LOC: LBO 03:24
PROVIDERS: PCP Student in an Organized Health Care Education/Training Program; Referring Provider Student in an Organized Health Care Education/Training Program; Visit Provider Student in an Organized Health Care Education/Training Program
DX: E87.8 Other disorders of electrolyte and fluid balance, not elsewhere classified; N18.4 Chronic kidney disease, stage 4 (severe)
CPT/HCPCS: 36415; 80053; 85027; 82728; 83540; 83550; 83735; 85014; 85018

== ENCOUNTER 2022-11-17 15:29 | Emergency (ER) | payer MEDICARE, SELFPAY ==
[2022-11-17 15:33] VITALS: BP 170/95; PULSE 91; RESP 18; TEMP 36.5; O2SAT 99
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
== END 2022-11-17 17:52 | disposition home or self-care (01) ==
PROVIDERS: Emergency Provider Physician Assistant; PCP Student in an Organized Health Care Education/Training Program
DX: G89.11 Acute pain due to trauma (principal); M54.2 Cervicalgia; R51.9 Headache, unspecified; I13.0 Hypertensive heart and chronic kidney disease with heart failure and stage 1 through stage 4 chronic kidney disease, or unspecified chronic kidney disease; N18.9 Chronic kidney disease, unspecified; I50.23 Acute on chronic systolic (congestive) heart failure; E11.22 Type 2 diabetes mellitus with diabetic chronic kidney disease; D63.1 Anemia in chronic kidney disease; E11.51 Type 2 diabetes mellitus with diabetic peripheral angiopathy without gangrene; E11.42 Type 2 diabetes mellitus with diabetic polyneuropathy; Z79.4 Long term (current) use of insulin; Z79.82 Long term (current) use of aspirin; V49.9XXA Car occupant (driver) (passenger) injured in unspecified traffic accident, initial encounter
CPT/HCPCS: 99284; 70450; 72125; 73030; 99282

== ENCOUNTER 2022-11-21 21:08 | Inpatient (IN) | payer MEDICARE, SELFPAY ==
[2022-11-21] VITALS (13 sets, daily range): BP systolic 100–126; BP diastolic 52–62; PULSE 78–93; RESP 15–19; TEMP 36.5; O2SAT 99
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
[2022-11-21] MEDS: oxyCODONE 5 MG TAB 2.5 MG PO (21:36)
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
[2022-11-22] MEDS: oxyCODONE 5 MG TAB PO ×2 (01:19→21:12)
--- NOTE | 2022-11-22 01:38 | NUR.NOTE ---
0130-Pt assisted to bedside commode. Limited ability to bear weight on L leg. +BM that was noted to have amber blood in stool. Pt denies dysuria, melena or vaginal bleeding. Re-assessment unchanged from initial. MD Amanda made aware. New ords received.
[2022-11-22 01:59] LABS: Abs Immature Grans 0.03 10^3/uL (0.0-0.06); Absolute Basophil Count 0.03 10^3/uL (0.0-0.2); Absolute Eosinophil Count 0.07 10^3/uL (0.0-0.7); Absolute Lymphocyte Count 2.43 10^3/uL (1.2-3.4); Absolute Monocyte Count 0.67 10^3/uL (0.1-0.8); Basophils % 0.3; Eosinophils % 0.6; HCT 40.5 % (36.0-46.0); Immature Grans % 0.3; Lymphocytes % 21.1; MCH 31.5 pg (27.0-33.0); MCHC 32.1 % (32.0-36.0); MCV 98 fL (80-95); MPV 10.5 fL (8.0-11.0); Monocytes % 5.8; Neutrophils % 71.9; Platelet Count 154 10^3/uL (130-400); RBC 4.13 10^6/uL (3.93-5.22); RDW 13.1 % (11.7-14.6); RDW-SD 46.9 fL; WBC 11.54 10^3/uL (4.4-10.8)
[2022-11-22 02:07] LABS: Lipase 43 U/L (16-77); Magnesium 2.3 mg/dL (1.8-2.4)
[2022-11-22 02:11] LABS: PTT Activated 23.5 sec (21.5-31.9); Prothrombin Time 10.4 sec (9.3-11.0)
[2022-11-22 02:13] LABS: ALT 56 U/L (14-59); AST 37 U/L (15-37); Albumin 4.3 g/dL (3.4-5.0); Alkaline Phosphatase 108 U/L (46-116); Anion Gap 9.5 mmol/L (3-11); BUN 55 mg/dL (7-18); Bilirubin, Total 0.8 mg/dL (0.2-1.0); CO2 27.5 mmol/L (21.0-32.0); CREATININE 2.1 mg/dL (0.55-1.02); Calcium 9.6 mg/dL (8.5-10.1); Chloride 101 mmol/L (98-107); Estimated GFR 25.04 (mL/min/1.73m2); Glucose 163 mg/dL (74-106); Potassium 4.4 mmol/L (3.5-5.1); Sodium 138 mmol/L (136-145); Total Protein 8.4 g/dL (6.4-8.2)
--- NOTE | 2022-11-22 05:30 | DI.CT_ITS ---
Exam(s) CT ABDOMEN PELVIS CTA EXAM: CT ABDOMEN PELVIS CTA CLINICAL HISTORY: lower gi bleed. TECHNIQUE: Imaging Protocol: Axial computed tomography images with coronal and sagittal reformatted images were created and reviewed CONTRAST MATERIAL: Intravenous: Omnipaque 350 Contrast volume:100 ml Oral: None COMPARISON: CT CT ABDOMEN PELVIS WO from 08/22/2021 FINDINGS: AORTA: Caliber of the abdominal aorta is within normal limits.There is some atherosclerotic disease b ut without significant aneurysm. Superior and inferior mesenteric arteries are patent. Celiac arter y is patent. Some plaque is noted at the origin of both renal arteries. Common iliac arteries are p atent and nonaneurysmal. External iliac arteries are patent bilaterally as are the common femoral ar teries. Internal iliac arteries are patent bilaterally. ABDOMEN: There is no ascites. LIVER: There are no focal hepatic lesions nor dilatation of intrahepatic ducts. Element of steatosis . GALLBLADDER/BILIARY: Gallbladder surgically absent. CBD is not dilated. PANCREAS: No evidence of pancreatic mass nor dilatation of the pancreatic duct. SPLEEN: Spleen is not enlarged. There are no intrasplenic lesions. Splenic and portal veins are castañeda nt. ADRENALS: There are no significant adrenal masses. KIDNEYS: No significant focal findings in the left kidney. In the right kidney there is a there are few cysts. In addition, there is a nodular density in the mid lateral cortex which measures 1.8 x 1. 5 cm. This is either hemorrhagic cyst or possible solid neoplasm. Below this level there are smalle r cysts noted. No calculi seen in the kidneys nor along course of the ureters. No findings in the u rinary bladder. No calculi nor hydronephrosis. No solid renal masses. ABDOMINAL AORTA: The abdominal aorta is not enlarged. LYMPH NODES: There is no retroperitoneal nor para-aortic adenopathy. No obvious mesenteric masses. ABDOMINAL WALL: No evidence of significant anterior abdominal wall hernia. GI: In addition the sigmoid diverticulosis, there is a colitis pattern of the left side of the colon evident, also involving the area with numerous diverticuli in the sigmoid. There is no free fluid. No abscess. No free air. No gas in the adjacent urinary bladder. PELVIS: LYMPH NODES: There is no intrapelvic nor inguinal adenopathy. GI: No evidence of appendicitis.Multiple sigmoid diverticuli but doubtful for acute diverticulitis. URINARY BLADDER: No calculi nor masses evident REPRODUCTIVE: Uterus size age-appropriate. No abnormal adnexal masses. OSSEOUS: No significant osseous lesions. IMPRESSION: 1. There is long segment colitis pattern in left side of the colon at and distal to the splenic flexu re. There are numerous diverticuli in the sigmoid again noted. Findings are more in keeping with co litis than actual acute diverticulitis at this time, this despite the presence of numerous sigmoid di verticuli along the course of the involved bowel segment.. 2. There is an 18 x 15 millimeter nodule in the lateral cortex of the right kidney which is denser th an the other simple cysts. Appropriate follow-up of this right kidney finding, starting with ultraso und recommended. 3. Other findings as above. RADIATION DOSE DELIVERED: 814.08mGy.cm Total DLP DATA REPOSITORY: All CT scans at this facility are submitted to the National Radiology Data Registry (NRDR) Dose Index Registry (DIR) with the [employer] (ACR). RADIATION OPTIMIZATION: All CT scans at this facility use at least one of these dose optimization te chniques: automated exposure control; mA and/or kV adjustment per patient size (includes targeted exa ms where dose is matched to clinical indication); or iterative reconstruction.
[2022-11-22] MEDS: Ondansetron 4 MG/2 ML VIAL IVP (06:00)
[2022-11-22] MEDS: Normal Saline 1,000 ML 1000 ML IV (06:30)
[2022-11-22] MEDS: Omnipaque 350 MG/ML 100 ML BTL IJ (06:38)
[2022-11-22 06:44] LABS: HCT 35.2 % (36.0-46.0); HGB 11.5 g/dL (11.2-15.7); MCH 31.8 pg (27.0-33.0); MCHC 32.7 % (32.0-36.0); MCV 97 fL (80-95); MPV 10.7 fL (8.0-11.0); Platelet Count 143 10^3/uL (130-400); RBC 3.62 10^6/uL (3.93-5.22); RDW 13.1 % (11.7-14.6); RDW-SD 46.5 fL
[2022-11-22 06:47] VITALS: BP 125/57; PULSE 102
--- NOTE | 2022-11-22 07:15 | DI.VRAD_ITS ---
PROCEDURE INFORMATION: Exam: CTA Abdomen and Pelvis With Contrast Exam date and time: 11/22/2022 6:15 AM Age: 67 years old Clinical indication: Other: Gi bleed; Prior surgery; Surgery date: 6+ months; Surgery type: Hernial TECHNIQUE: Imaging protocol: Computed tomographic angiography of the abdomen and pelvis with contrast. 3D rendering (Not supervised by radiologist): MIP and/or 3D reconstructed images were created by the technologist. Contrast material: OMNIPAQUE; Contrast volume: 69 ml; Contrast route: INTRAVENOUS (IV); COMPARISON: MR ABDOMEN WO 02/02/2022 8:53 AM FINDINGS: Aorta: No aortic aneurysm. No aortic dissection. Celiac trunk and mesenteric arteries: No occlusion or significant stenosis. Renal arteries: No occlusion or significant stenosis. Right iliac arteries: No occlusion or significant stenosis. Left iliac arteries: No occlusion or significant stenosis. Liver: No mass. Gallbladder and bile ducts: The gallbladder is surgically absent. Pancreas: Unremarkable. No mass. No ductal dilation. Spleen: Unremarkable. No splenomegaly. Adrenal glands: Unremarkable. No mass. Kidneys and ureters: There is a 1.6 cm solid-appearing mass partially exophytic from the mid right kidney. This was seen on prior MRI but incompletely characterized. The kidneys and ureters are otherwise unremarkable. Stomach and bowel: There is prominent bowel wall thickening from the splenic flexure to the rectum. There is some mild surrounding inflammatory change surrounding the left colon. Multiple colonic diverticuli are present. There is hyperenhancement of the mucosa throughout the left colon. No definite contrast blush to identify a bleeding diathesis. Appendix: No evidence of appendicitis. Intraperitoneal space: Unremarkable. No free air. No significant fluid collection. Lymph nodes: Unremarkable. No enlarged lymph nodes. Urinary bladder: Unremarkable. No mass. Reproductive: Unremarkable as visualized. Bones/joints: No aggressive appearing bony lesions. Soft tissues: Unremarkable. IMPRESSION: 1. Long segment bowel wall thickening with mucosal hyperenhancement and mild surrounding inflammatory change of the left colon. This is most consistent with a colitis, infectious or inflammatory. Correlate with any history of ulcerative colitis or other inflammatory bowel disease. 2. No blush of contrast to definitively identify a bleeding diathesis in the gastrointestinal tract. 3. 1.5 cm solid-appearing mass partially exophytic from the mid right kidney. This may represent a hyperdense cyst but was not adequately characterize on previous MRI at the prior MRI was noncontrast. Correlate with any prior imaging if available and consider dedicated renal MRI to further characterize this mass. Dictated and Authenticated by: Laci Ramos MD. Ordering:SCOTTY Yanez MD
[2022-11-22] MEDS: Gabapentin 300 MG CAP PO ×3 (07:18→21:12)
[2022-11-22] MEDS: Acetaminophen 500 MG TAB 1000 MG PO (07:19)
[2022-11-22] MEDS: Normal Saline Flush 10 ML SYR IVP (07:27)
[2022-11-22] MEDS: Amoxicillin 875/Clav. 125 TAB PO ×2 (07:29→21:12)
--- NOTE | 2022-11-22 09:34 | ED.PROG_ITS ---
Date of service: 11/22/22 Time of Service: 09:[address] Lopez's documentation 9:34 AM Case is signed out to me by my colleague Dr. Beau Patel. Please refer to his HPI, physical exam, assessment and plan. At that time we are awaiting PT and OT eval with case management assessment. As a summary, the patient came in today, she had fallen last night onto her left hip. She had a left pubic rami fracture noted on imaging. She also had 2 bloody bowel movements while here in the [facility] department, CT scan was performed of the abdomen demonstrates evidence of mild colitis. She was started on Augmentin by Dr. Patel. No beds are available here at [facility], nor elsewhere. Case management has come and assessed the patient, and patient states that they do not have any significant assistance or help at home at this point. Patient does live alone. We will have PT evaluate the patient for potential ambulatory capability, although we did try to ambulate the patient this evening and were unsuccessful. 12:57 PM We did contact [facility], they are not able to accept the patient at this time. No other facility is currently able to accept the patient. Physical therapy has evaluated the patient and states that she is not able to stand or bear weight. She would likely be a rehab facility requiring patient. I did contact the hospitalist and discussed the case with Dr. Hernandez. She is excepted the patient for admission. However because of current bed status we will have to keep the patient down here for the next 24 to 48 hours. We will continue to monitor closely. I have extensively reviewed the treatment plan with the patient. I have addressed all patient concerns at this time. I have also discussed the plan with the admitting physician and they agree with the current assessment and plan and have agreed to assume responsibility for the patient. All parties demonstrate verbal understanding and agreement with our assessment and plan at this time. The documentation in this chart was dictated using [employer] dictation software. Please excuse any dictation errors. Also of note 3 CBCs have been ordered, and the patient's hemoglobin has remained stable here. No further bloody bowel movements down here. Sign Out Sign Out Data: Sign Out Comment: slipped on ice on her left hip, has inferior rami fracture. During overnight stay to see pt had two episodes of bowel movements with blood, no blood when rectal exam performed x2. CT shows findings consistent with colitis. Started on augmentin, pending PT and CM eval Last updated by Beau Patel MD at 11/22/22 07:22 Discharge Plan Disposition Patient Disposition: Admit to [facility] Condition: Good Discharge Details Clinical Impression: Closed fracture of left inferior pubic ramus, Colitis Primary Care Provider: Asia Gil ED Provider: Thanh Lopez Home Meds and New Rx's Prescriptions: New amoxicillin-pot clavulanate 875-125 mg tablet 1 tab PO BID Qty: 14 0RF Continued (DME) blood-glucose meter Kit See Rx Instructions .ROUTE .MEDSUPPLY Qty: 1 0RF Rx Instructions: One Touch Ultra please. aspirin [Adult Aspirin Regimen] 81 mg tablet,delayed release (DR/EC) 81 mg PO DAILY Qty: 90 3RF Rx Instructions: indefinitely per [facility] Echo results 04/16/21 (DME) Left Surgical Shoe (Velcro) See Rx Instructions .Route .MEDSUPPLY Qty: 1 0RF Rx Instructions: As directed, to keep stiff sole on left foot isosorbide mononitrate 30 mg tablet extended release 24 hr 30 mg PO QAM Qty: 90 3RF duloxetine 20 mg capsule,delayed release(DR/EC) 20 mg PO DAILY Rx Instructions: Tapering off; Trial 20mg x 2 weeks, then HALF again neuropaway 2 tab PO TID Hold Instructions: hold during times of lower renal function Rx Instructions: 2 tabs TID; OTC B-vitamin, and ALA. 11/07/20 EO (DME) blood sugar diagnostic Strip See Rx Instructions .ROUTE .MEDSUPPLY Qty: 50 2RF Rx Instructions: to check BS daily to keep A1c <8 Dx:E11.9 amitriptyline 25 mg tablet 50 mg PO QHS Qty: 60 1RF Rx Instructions: Trial - increase dose to 50mg (with goal of 75mg qHS (possibly 150mg daily). NOT with Tramadol. melatonin 3 mg tablet 6 mg PO HS PRN (DME) lancets [OneTouch Delica Lancets] 30 gauge misc See Rx Instructions .ROUTE .MEDSUPPLY Qty: 100 2RF Rx Instructions: to check BS daily to keep A1c <8 DM E11.9 insulin glargine [Lantus Solostar U-100 Insulin] 100 unit/mL (3 mL) insulin pen 11 unit subcut QAM MDD 11 units daily Qty: 15 3RF Rx Instructions: For diabetes nitroglycerin 0.4 mg tablet, sublingual 0.4 mg SL Q5M PRN (Reason: chest pain) Qty: 100 0RF Rx Instructions: do not exceed 3 doses per episode ondansetron HCl 4 mg tablet 4 mg PO Q8H PRN (Reason: nausea and vomiting) Qty: 30 1RF Citrucel (sucrose) Powder See Rx Instructions PO DAILY Rx Instructions: 1 tsp daily for one week, then 2 tsp daily for one week, then 3 tsp (1 Tbsp)daily. May increase slowly up to 2 Tbsp daily. orally daily; metoprolol succinate 50 mg tablet extended release 24 hr 50 mg PO DAILY Qty: 90 3RF polyethylene glycol 3350 [Miralax] 17 gram/dose powder 8.5 g PO BID PRN (Reason: constipation) Qty: 510 6RF lisinopril 2.5 mg tablet 5 mg PO DAILY Qty: 90 1RF Rx Instructions: Re-starting due to high BP and stable RF atorvastatin 40 mg tablet 40 mg PO HS Qty: 90 3RF diclofenac sodium [Voltaren Arthritis Pain] 1 % gel 4 g topical QID Qty: 100 1RF Rx Instructions: Continue topical NSAID for foot pain; (DME) pen needle, diabetic [BD Ultra-Fine Dionna Pen Needle] 32 gauge x 5/32 needle See Rx Instructions .ROUTE .MEDSUPPLY Qty: 100 3RF Rx Instructions: Daily with lantus insulin for goal A1C <7% for E11.9 Jardiance 10 mg tablet 10 mg PO DAILY Qty: 30 1RF Rx Instructions: Trial daily torsemide 20 mg tablet 10 mg PO DAILY Qty: 30 3RF Rx Instructions: per [facility] pantoprazole 40 mg tablet,delayed release (DR/EC) 40 mg PO DAILY Qty: 90 3RF acetaminophen 325 mg Tablet 650 mg PO Q4H PRN PRN calcium carbonate 500 mg calcium (1,250 mg) Tablet,Chewable 500 - 1,000 mg PO Q4H PRN PRN No Action gabapentin 300 mg capsule 300 mg PO TID MDD 900mg 2' GFR (30-49) Rx Instructions: May try 300 after dinner, then 600mg qHS.
--- NOTE | 2022-11-22 10:40 | NUR.NOTE ---
Nursing Note: Patient requesting breakfast. Crackers and liquids okay per MD Madera.
[2022-11-22 10:52] LABS: HCT 35.6 % (36.0-46.0); HGB 11.6 g/dL (11.2-15.7); MCH 31.3 pg (27.0-33.0); MCHC 32.6 % (32.0-36.0); MCV 96 fL (80-95); MPV 10.2 fL (8.0-11.0); Platelet Count 141 10^3/uL (130-400); RBC 3.71 10^6/uL (3.93-5.22); RDW 13.2 % (11.7-14.6); WBC 14.07 10^3/uL (4.4-10.8)
--- NOTE | 2022-11-22 12:03 | NUR.NOTE ---
Nursing Note: pt moved to med surg bed. repositioned. boarding in ER until med surg bed opens.
[2022-11-22 12:06] VITALS: BP 114/53; PULSE 93
--- NOTE | 2022-11-22 13:20 | IN_ITS ---
PT Emergency Department Note Patient Location: Emergency Room Referring Provider: Dr. Amanda SENIOR Diagnosis: Fx left pubic rami fx Diagnosis: Fx left pubic rami Date of Service: November 21, 2022 21:08 Emergency Department Physical Therapy Evaluation Date: 11/22/2022 Referring Doctor: Dr. Patel PT Orders: PT CONSULT: safety consult for D/C Precautions: standard, fall risk Patient Profile/Admitting Diagnosis: Pt. is a pleasant 67 yo female presenting to ER 11/21/2022 via EMS she had fallen last night onto her left hip outside on ice and although made it into her home was then unable to put any weight on it even with using a walker.? She had a left pubic rami fracture noted on imaging.? She also had 2 bloody bowel movements while in the emergency department, CT scan was performed of the abdomen demonstrates evidence of mild colitis.? PMHX: Taken from previous chart (PCP) Anxiety ?Calculus of cystic duct ?Cholecystitis ~01/2021 Chronic pain disorder Hx Lyrica, Gabapentin, Opioids, Tramadol. D/C'd with mixed pain symptoms. Ortho surgery helped (2019). MJ helping. ?Claudication of left lower extremity Long Hx painful, cold feet w/ advanced CVD. Borderline LFT ADRY. [facility] Vasc Dx mild atherosclerosis only. Ca deposits per Cardio. trial Rx? ?Cold feet ?Daytime somnolence ?Depression ?Diabetic neuropathy a. Bilateral. ((old, presumed Dx? no clear Hx high A1Cs?)) ?Fatigue ?Fluid collection of pancreas ?Foot pain, bilateral Presumed neuropathy, but Hx SURG and nerve blocks .. original Dx? 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 Distal from knees, B/L (left toes #4,5 seem ok).. 04/2021 ?Non-insulin dependent type 2 diabetes mellitus Hx acceptable A1C & Hypoglycemic episodes make for high risk mgmt ... HOLDing insulin, summer 2020. ?Pancreatic abscess ~01/17/21 Peripancreatic abscess ?Peripheral neuropathy ?Restless leg syndrome Doubting this Dx, 05/2020 ?Retroperitoneal abscess ?Sinus tachycardia ?Snoring ?Stressful life event affecting family Bro (had been in rehab, s/p ICU in 05/2020).. ?Tubular adenoma?[] Arthroplasty of knee,meniscus ?Cholecystectomy ~2015 Endometrial Ablation ?H/O esophagogastroduodenoscopy ~12/25/20 History of cardiac cath [facility] [place]: 3 vessel dx (LAD,LCX,RCA) w/elevated LV EDP ~02/07/21 History of ERCP with cholangioscopy for removal of retained stones(unsuccessful) complicated by post ERCP pancreatitis ~01/17/21 Hx of colonoscopy 2020-Tubular adenomas x10 ~12/25/20 Oophrectomy, Left ?Repair of umbilical hernia with mesh ?Repair, Tendon or Muscle Achilles Social History/Home Situation: Lives alone, drives, ambulates w/o AD but due to previous injuries has a RW and cane at home which she will use from time to time as needed. She has a few stairs to get into her home without railing but has single floor living once in. Current Functional Limitations: Prior to fall ambulating without issue has had recent c/o right foot pain and was seeking out patient PT Equipment Owned/DME: RW, cane Subjective: I can't put any weight on my left leg Objective: General Observation: Sitting in ED bed upright without distress Mental Status: A and O x 3 , able to communicate limitations. Concerned that she is unable to put weight on her left LE Pain: 0-9/10, at rest relatively comfortable but with any weight bearing painful(even toe touch) Vital Signs: NT ROM: Right Upper Extremity: WFL Left Upper Extremity: WFL Right Lower Extremity: WFL, except ankle DF -10 Left Lower Extremity: knee WFL ankle WFL Hip flexion 95 Add 10 Abd 20 IR 10 ER 20 Strength: Right Upper Extremity: WFL Left Upper Extremity: WFL Right Lower Extremity: WFL Left Lower Extremity: Quad 4/5 Ham 4/5 DF 5/5 PF unable to test , hip flex 4- /5 , hip add 2/5 painful, abd 2/5 painful, IR 2/5 pain, ER 2/5 pain Sensation: WNL Bed Mobility/Transfers: Sitting in bed able to sit to edge of bed, sit to stand at RW with supervision, stand (RW) to sit with supervision, painful reposi tioning. Gait: Unable to ambulate with RW, unable to toe touch weight bear, we tried 2-3 steps with 9/10 pain and unable to continue Balance: Static Sitting: normal Dynamic Sitting: normal Static Standing: unable w/o RW, no weight bearing on left LE Dynamic Standing: unable Special Tests: Mobility Limitations Standardized Measure [facility] AM-PAC 6 clicks Basic Mobility Inpatient Short Form: Raw Score: 15 Standardized Score: 39.45 CMS Score: 57.70 Informed Consent/Education: Patient instructed in purpose of PT consult and plan of care. Assessment: Patient is a 67 year old female referred to physical therapy services with the diagnosis of . Patient presents with clinical signs and symptoms consistent with Fx left pubic rami , as demonstrated by the following impairment level findings: decreased ROM, decreased strength L LE and painful, decreased ROM LLE, Decreased balance. Impairments are contributing to the following functional limitations:unable to ambulate, unable to perfrom stairs, unable to perform ADL indep AMPAC score. Patient is assessed as a Low 27928 complexity based on the following Goals: Goals X1 week 1. Supine-Sit I 2. Sit-Supine I 3. Sit-Stand I 4. Stand-Sit I 5. Bed-Chair I 6. Chair-Bed I 7. Gait ambulate with RW NWB or per MD recommendations indep 8. Stairs Indep with guidance to weight bearing status 9. Independent with home exercise program 10. Balance safe with use of RW Plan of Care/Treatment Plan: She may be admitted to monitor status of colitis given active bleeding and left pelvic pain with inability to ambulate or weight bear. Pt. is an excellent candidate for rehab, she is unable to manage indep at this time due to weight bear tolerance and status. 1-2x/day, 7 days/week x 1 week. Plan of care has been reviewed with the [employer] providing the service under Physical Therapy direction. Initiate Physical Therapy intervention for strengthening, bed mobility, transfers, gait, stairs, balance training, use of assistive devic e. DISCHARGE RECOMMENDATIONS: [] Home with no services [] [] Home with services [specify] [] Home with outpatient PT [] [x] SNF for continued rehabilitation [] Group Home Care [] [] SNF versus LTC based on ability to participate and progress [] TREATMENT CODE/TIME:[id number] 30'
[2022-11-22 13:28] LABS: Lab Add On Test DONE
[2022-11-22] MEDS: Acetaminophen 325 MG TAB PO ×2 (13:36→21:11)
[2022-11-22 13:42] LABS: C-Reactive Protein 0.45 mg/dL (0.0-0.3)
[2022-11-22 13:44] LABS: ESR 22 mm/hr (0-30)
[2022-11-22 14:04] LABS: Procalcitonin 0.1 ng/mL
[2022-11-22 14:11] LABS: Source Nasal/Nares
[2022-11-22 14:36] LABS: COVID-19 PCR Negative (Negative)
[2022-11-22] MEDS: Heparin 5,000 UNITS/ML VIAL 5000 UNITS SC (15:16)
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
[2022-11-22] MEDS: Insulin Aspart 300 UNITS/3 ML PEN SC ×2 (17:27→21:12)
[2022-11-22] MEDS: Diclofenac 1% Gel 100 GM TUBE TP (17:28)
[2022-11-22 18:37] LABS: Bilirubin Negative (Negative); Blood Moderate (Negative); Clarity Clear (Clear); Glucose 500 mg/dL (Negative); Ketones Negative (Negative); Leukocyte Esterase Negative (Negative); Nitrite Negative (Negative); Urobilinogen 0.2 EU/dL (Up TO 0.2)
[2022-11-22 19:01] LABS: Bacteria Rare HPF (Negative); C & S Indicated? No; Crystals Negative HPF (Negative); Epithelial Cells Moderate HPF (Negative); Mucus Trace (Negative); WBC 0-2 HPF (0-5)
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
[2022-11-22] MEDS: Amitriptyline 25 MG TAB 50 MG PO (21:11)
[2022-11-22] MEDS: Atorvastatin 40 MG TAB PO (21:12)
--- NOTE | 2022-11-22 21:28 | NUR.NOTE ---
Nursing Note: Patient able to stand pivot to chair. Declined mi catheter placement. Able to transfer to [facility] with minimal assist.
--- NOTE | 2022-11-22 21:46 | NUR.NOTE ---
Nursing Note: Patient had one small BM, bright red. estimated around 1/4 cup. No pain. loose stool.
[2022-11-23] VITALS (8 sets, daily range): BP systolic 96–145; BP diastolic 51–71; PULSE 82–107; RESP 14–19; TEMP 36.5–37.3; O2SAT 93–98
[2022-11-23] MEDS: Ondansetron 4 MG TAB PO (04:00)
[2022-11-23] MEDS: oxyCODONE 5 MG TAB PO ×2 (04:00→08:50)
[2022-11-23 05:47] LABS: Abs Immature Grans 0.06 10^3/uL (0.0-0.06); Absolute Basophil Count 0.03 10^3/uL (0.0-0.2); Absolute Eosinophil Count 0.06 10^3/uL (0.0-0.7); Absolute Lymphocyte Count 1.93 10^3/uL (1.2-3.4); Absolute Monocyte Count 0.79 10^3/uL (0.1-0.8); Basophils % 0.3; Eosinophils % 0.5; HCT 34.9 % (36.0-46.0); HGB 11.3 g/dL (11.2-15.7); Immature Grans % 0.5; Lymphocytes % 16.6; MCH 31.5 pg (27.0-33.0); MCHC 32.4 % (32.0-36.0); MCV 97 fL (80-95); MPV 10.5 fL (8.0-11.0); Monocytes % 6.8; Neutrophils % 75.3; Platelet Count 120 10^3/uL (130-400); RBC 3.59 10^6/uL (3.93-5.22); RDW 13.2 % (11.7-14.6); RDW-SD 47.8 fL; WBC 11.64 10^3/uL (4.4-10.8)
[2022-11-23 05:56] LABS: Absolute Neutrophil Count 8.76 10^3/uL (1.2-6.7)
[2022-11-23 05:58] LABS: Anion Gap 8.8 mmol/L (3-11); BUN 34 mg/dL (7-18); C-Reactive Protein 16.73 mg/dL (0.0-0.3); CO2 26.2 mmol/L (21.0-32.0); CREATININE 1.7 mg/dL (0.55-1.02); Calcium 9.3 mg/dL (8.5-10.1); Chloride 103 mmol/L (98-107); Estimated GFR 32.26 (mL/min/1.73m2); Glucose 162 mg/dL (74-106); Potassium 4.3 mmol/L (3.5-5.1); Sodium 138 mmol/L (136-145)
[2022-11-23] MEDS: Metoprolol CR 50 MG TABCR PO (08:42)
[2022-11-23] MEDS: Aspirin E.C. 81 MG TABEC PO (08:42)
[2022-11-23] MEDS: Empaglifozin 10 MG TAB PO (08:42)
[2022-11-23] MEDS: Isosorbide Mononitrate 30 MG TABCR PO (08:42)
[2022-11-23] MEDS: DULoxetine 20 MG CAP PO (08:43)
[2022-11-23] MEDS: Amoxicillin 875/Clav. 125 TAB PO ×2 (08:43→20:05)
[2022-11-23] MEDS: Torsemide 20 MG TAB 10 MG PO (08:43)
[2022-11-23] MEDS: Pantoprazole 40 MG TABCR PO (08:43)
[2022-11-23] MEDS: Insulin Aspart 300 UNITS/3 ML PEN SC ×4 (08:45→21:47)
[2022-11-23] MEDS: Gabapentin 300 MG CAP PO ×3 (08:45→20:04)
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
[2022-11-23] MEDS: Diclofenac 1% Gel 100 GM TUBE TP ×4 (08:46→23:31)
--- NOTE | 2022-11-23 12:14 | NUR.NOTE ---
verified insulin with another nurse prior to given, the nurse witnessed me preload and set dose. RN-KG, BARREL BANDER-CLB
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
[2022-11-23] MEDS: Acetaminophen 325 MG TAB PO ×2 (14:06→20:05)
--- NOTE | 2022-11-23 18:07 | W.PM.PROGNOT ---
Date of Service Date of service: 11/23/22 Time of Service: 13:00 Assessment and Plan Assessment and plan (1) Closed fracture of left inferior pubic ramus: Status: Acute Assessment and plan: Left hip pain Left hip xray impression: Bones/joints: There is a minimally displaced fracture in the left inferior pubic ramus. No joint dislocation.? The femur appears grossly intact. Soft tissues: Unremarkable. IMPRESSION: Minimally displaced fracture of the left inferior pubic ramus. No joint dislocation. ED tried to ambulate the patient this evening and were unsuccessful. Pain control - oxycodone oral or dilaudid IV (Ondansetron prn for nauasea) Rest, ice, immobilization, pain control, PT assessment, ortho consult (2) Colitis: Status: Resolved Assessment and plan: She had 2 bloody bowel movements while in the emergency department.? She was started on Augmentin and probiotics Hematest ordered - negative in the ED - Surgery consulted - she that note CT of Abdomen/Pelvis IMPRESSION: 1. Long segment bowel wall thickening with mucosal hyperenhancement and mild surrounding inflammatory change of the left colon. This is most consistent with a colitis, infectious or inflammatory. Correlate with any history of ulcerative colitis or other inflammatory bowel disease. 2. No blush of contrast to definitively identify a bleeding diathesis in the gastrointestinal tract. 3. 1.5 cm solid-appearing mass partially exophytic from the mid right kidney. Being followed by urology for renal mass (3) ASCVD (arteriosclerotic cardiovascular disease): Status: Chronic Assessment and plan: Stable Cont ASA Cont metoprolol Cont Isosorbide No comp of chest pain. (4) Non-insulin dependent type 2 diabetes mellitus: Status: Chronic Assessment and plan: Random glucose 163 on admission. Heart healthy/diabetic diet SS insulin. (5) Congestive heart failure: Status: Chronic Assessment and plan: Preserved EF. Cont torsemide (6) DVT prophylaxis: Status: Deleted Assessment and plan: Takes aspirin daily - will hold s/t bloody stools - Heparin SQ held s/t bloody stools Creatinine 2.1 Surgery unlikely (7) Discharge planning issues: Status: Deleted Assessment and plan: Home with PT v placement when stable and after ortho consult Discussed with Dr Hernandez Subjective Subjective Patient reports: no new complaints, pain is less, voiding w/o difficulty (declines urinary catheter) and afebrile; denies bowel movement, diarrhea, blood in stool, nausea or vomiting Interval history since last seen: Stool heme neg in ED; patient did have some loose stools prior to admission; has not had any since Exam Const General: cooperative, healthy appearing, comfortable, no acute distress, well developed and well groomed Nutritional Appearance: average body habitus and well nourished Orientation: alert, awake and oriented x3 Eyes Alignment and Position: alignment normal Neck Neck: normal visual inspection, trachea midline and nontender Resp Effort & Inspection: normal respiratory effort, able to speak in complete sentences, respiratory effort not decreased, no grunting and not labored Auscultation: clear to auscultation bilaterally Cardio Rate: regular rate Rhythm: regular rhythm GI Inspection: non-distended and obesity Palpation: soft, not firm, no guarding, not rigid and nontender Auscultation: normal bowel sounds Back/Spine/Pelvis Cervical Spine: cervical ROM normal and No cervical muscular tenderness Thoracic/Lumbar Spine: No thoracic spinal tenderness and No lumbar spinal tenderness Neuro General: patient alert, patient awake and patient oriented x3 Psych Thought Process: normal Thought Content: normal Insight: insight good Judgment: judgment good Objective Last Vital Signs Temp 36.8 C 11/23/22 15:59 Pulse 91 H 11/23/22 15:59 Resp 14 11/23/22 15:59 BP 104/67 11/23/22 15:59 Pulse Ox 96 11/23/22 15:59 Laboratory Results - last 24 hr 11/22/22 11/22/22 11/23/22 18:19 20:00 05:30 WBC RBC Hgb Hct MCV MCH MCHC RDW Plt Count MPV Immature Gran % Neutrophils % Lymphocytes % Monocytes % Eosinophils % Basophils % Nucleated RBC % Absolute Neutrophils Absolute Lymphocytes Absolute Monocytes Absolute Eosinophils Absolute Basophils Sodium 138 Potassium 4.3 Chloride 103 Carbon Dioxide 26.2 Anion Gap 8.8 BUN 34 H Creatinine 1.7 H Est GFR (CKD-EPI 2020) 32.26 Glucose 162 H Calcium 9.3 Magnesium 2.0 C-Reactive Protein 16.73 H Urine Color Yellow Urine Clarity Clear Urine pH 6.0 Ur Specific [place] 1.010 Urine Protein 30 H Urine Ketones Negative Urine Blood Moderate H Urine Nitrite Negative Urine Bilirubin Negative Urine Urobilinogen 0.2 Ur Leukocyte Esterase Negative Urine RBC 5-10 H Urine WBC 0-2 Ur Epithelial Cells Moderate Urine Crystals Negative Urine Bacteria Rare Urine Mucus Trace Ur Culture Indicated? No Urine Glucose 500 H Patient ABO/Rh O Positive Antibody Screen NEGATIVE 11/23/22 05:30 WBC 11.64 H RBC 3.59 L Hgb 11.3 Hct 34.9 L MCV 97 H MCH 31.5 MCHC 32.4 RDW 13.2 Plt Count 120 L MPV 10.5 Immature Gran % 0.5 Neutrophils % 75.3 Lymphocytes % 16.6 Monocytes % 6.8 Eosinophils % 0.5 Basophils % 0.3 Nucleated RBC % 0.0 Absolute Neutrophils 8.76 H Absolute Lymphocytes 1.93 Absolute Monocytes 0.79 Absolute Eosinophils 0.06 Absolute Basophils 0.03 Sodium Potassium Chloride Carbon Dioxide Anion Gap BUN Creatinine Est GFR (CKD-EPI 2020) Glucose Calcium Magnesium C-Reactive Protein Urine Color Urine Clarity Urine pH Ur Specific [place] Urine Protein Urine Ketones Urine Blood Urine Nitrite Urine Bilirubin Urine Urobilinogen Ur Leukocyte Esterase Urine RBC Urine WBC Ur Epithelial Cells Urine Crystals Urine Bacteria Urine Mucus Ur Culture Indicated? Urine Glucose Patient ABO/Rh Antibody Screen Time Spent with Patient Time Spent with Patient: 35-49 minutes Time was spent: preparing to see the patient(eg.review tests), obtaining and/or reviewing separately otained hiistory, ordering medications,tests, procedures, referring, communicating with other health direct care provider, indepentently interpreting results, counseling the patient and care coordination
--- NOTE | 2022-11-23 19:07 | CMPROGNOTE_ITS ---
- If Service Date Differs Date of service: 11/23/22 Time of Service: 10:00 Care Management Progress Note CM asked to meet with patient on 11/22/22 in the ED regarding support at home. Toyin presented to the ED with a fractured pelvis. She is in a lot of pain and cannot stand. She lives alone and does not have any family who can stay with her or who she can stay with. Toyin had a PT consult and SNF was recommended. MARYSOL sent a referral to [facility] and a bed offer was received today, pending prior authorization approval.
--- NOTE | 2022-11-23 19:45 | RT.EKG_ITS ---
APPROVED REPORT Exam: Resting ECG Reason for Exam: Heart burn Patient Location: I HR:86 bpm ECG Measurements Heart Rate 86 AXIS NE 242 P 11 QRSd 95 QRS 10 QT 356 T 101 QTc 426 Conclusion Sinus rhythm...normal P axis, V-rate 50- 99 Prolonged NE interval...NE >220, V-rate 50- 90
[2022-11-23] MEDS: HYDROmorphone 2 MG/ML SYR IVP (20:03)
[2022-11-23] MEDS: Calcium Carbonate *TUMS* 500 MG CHEW PO (20:05)
[2022-11-23] MEDS: Famotidine 20 MG/2 ML VIAL IVP (20:22)
[2022-11-23] MEDS: Atorvastatin 40 MG TAB PO (21:47)
[2022-11-23] MEDS: Amitriptyline 25 MG TAB 50 MG PO (21:47)
[2022-11-24 03:27] VITALS: BP 113/63; PULSE 90; RESP 16; TEMP 36.9; O2SAT 98
[2022-11-24 03:40] VITALS: BP 122/61; PULSE 79; RESP 18; TEMP 36.4; O2SAT 96
[2022-11-24] MEDS: Normal Saline Flush 10 ML SYR IVP ×3 (04:55→09:25)
[2022-11-24] MEDS: HYDROmorphone 2 MG/ML SYR IVP ×2 (04:55→09:35)
[2022-11-24 07:04] LABS: Abs Immature Grans 0.03 10^3/uL (0.0-0.06); Absolute Basophil Count 0.04 10^3/uL (0.0-0.2); Absolute Eosinophil Count 0.15 10^3/uL (0.0-0.7); Absolute Lymphocyte Count 1.81 10^3/uL (1.2-3.4); Absolute Monocyte Count 0.58 10^3/uL (0.1-0.8); Absolute Neutrophil Count 6.55 10^3/uL (1.2-6.7); Basophils % 0.4; Eosinophils % 1.6; HCT 33.8 % (36.0-46.0); HGB 10.7 g/dL (11.2-15.7); Immature Grans % 0.3; Lymphocytes % 19.8; MCHC 31.7 % (32.0-36.0); MCV 98 fL (80-95); MPV 10.7 fL (8.0-11.0); Monocytes % 6.3; Neutrophils % 71.6; Platelet Count 129 10^3/uL (130-400); RBC 3.45 10^6/uL (3.93-5.22); RDW 13.1 % (11.7-14.6); RDW-SD 46.5 fL; WBC 9.16 10^3/uL (4.4-10.8)
[2022-11-24 07:13] LABS: Anion Gap 7.8 mmol/L (3-11); BUN 26 mg/dL (7-18); CO2 30.2 mmol/L (21.0-32.0); CREATININE 1.6 mg/dL (0.55-1.02); Chloride 102 mmol/L (98-107); Glucose 158 mg/dL (74-106); Magnesium 1.9 mg/dL (1.8-2.4); Potassium 4.3 mmol/L (3.5-5.1); Sodium 140 mmol/L (136-145)
[2022-11-24 07:37] VITALS: BP 147/81; PULSE 83; RESP 14; TEMP 35.8; O2SAT 98
[2022-11-24] MEDS: Insulin Aspart 300 UNITS/3 ML PEN SC ×2 (08:50→11:45)
[2022-11-24] MEDS: Amoxicillin 875/Clav. 125 TAB PO (08:52)
[2022-11-24] MEDS: Aspirin E.C. 81 MG TABEC PO (08:52)
[2022-11-24] MEDS: Torsemide 20 MG TAB 10 MG PO (08:52)
[2022-11-24] MEDS: DULoxetine 20 MG CAP PO (08:53)
[2022-11-24] MEDS: Isosorbide Mononitrate 30 MG TABCR PO (08:53)
[2022-11-24] MEDS: Gabapentin 300 MG CAP PO ×2 (08:53→13:07)
[2022-11-24] MEDS: Empaglifozin 10 MG TAB PO (08:54)
[2022-11-24] MEDS: Pantoprazole 40 MG TABCR PO (08:54)
[2022-11-24] MEDS: Metoprolol CR 50 MG TABCR PO (08:55)
[2022-11-24] MEDS: Diclofenac 1% Gel 100 GM TUBE TP (09:08)
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
--- NOTE | 2022-11-24 11:44 | PDOC.CMDIS ---
- If Service Date Differs Date of service: 11/24/22 Time of Service: 11:44 LACE Index Scoring Tool - Questions: Length of Stay (in days): 2 Acuity (Admit via E.D.?): Yes Comorbidities: Congestive Heart Failure E.D. Visits: 3 - Answers: Total Score: 10 Risk of Readmission: High Risk Care Management Discharge Reason for Hospitalization: Colitis, Pelvic Fracture Discharge Plan: Toyin will discharge to [facility] for SNF post hosptialization. She will transport via the facility's wheelchair van. Patient/Family Education Needs: Review discharge instructions, discuss Ask Me Three. Services Needed at Discharge: Longterm Facility ([facility] ), Transportation (W/C Van)
[2022-11-24] MEDS: oxyCODONE 5 MG TAB PO (11:46)
[2022-11-24] MEDS: Acetaminophen 325 MG TAB PO (11:47)
--- NOTE | 2022-11-24 16:07 | PT.INTREAT ---
Date of service: 11/24/22 Time of Service: 09:35 PT Notes Visit Reasons: Colitis,Pelvic Fracture Inpatient Physical Therapy Treatment Note [facility] Date: 11/24/2022 PRECAUTIONS: Fall, activity as tolerated, WBAT B SUBJECTIVE: Toyin is pleasant and agreeable to participating in PT. She reports continued pain with weight bearing through L LE, however, has been able to stand at bedside independently. OBJECTIVE: PAIN: See above BED MOBILITY/TRANSFERS Supine-sit: I Sit-stand: I Stand-sit: I GAIT Assistive Device: FWW Weight bearing: WBAT L Assist: CGA Distance: 6' Deviation: Skilled instruction provided for off-loading techniques, slow pacing, increased pain THEREX: Patient was instructed in a LE strengthening program, completed in a seated position, to include: ankle pumps, LAQ and hip flexion, hip abduction. ASSESSMENT: Patient tolerated session with complaint of increased pain with weight bearing through L LE. She was able to tolerate a slight progression in gait distance with FWW support and instruction for off-loading techniques. PLAN: Patient to discharge to SNF-level rehab later today, per provider, for continued progression toward baseline level of function. TREATMENT CODE/TIME: 25 minutes; 22973, [id number] (09:35)
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
== END 2022-11-24 13:22 | disposition skilled nursing facility (03) | DRG 535 ==
LOC: ER 11-22 15:09 → MS 11-23 13:57
PROVIDERS: Emergency Medicine; Nurse Practitioner Family; Admitting Provider Internal Medicine; Emergency Provider Student in an Organized Health Care Education/Training Program; PCP Student in an Organized Health Care Education/Training Program; Visit Provider Internal Medicine
DX: S32.592A Other specified fracture of left pubis, initial encounter for closed fracture (principal); K57.31 Diverticulosis of large intestine without perforation or abscess with bleeding; N18.4 Chronic kidney disease, stage 4 (severe); I50.42 Chronic combined systolic (congestive) and diastolic (congestive) heart failure; I13.0 Hypertensive heart and chronic kidney disease with heart failure and stage 1 through stage 4 chronic kidney disease, or unspecified chronic kidney disease; W00.0XXA Fall on same level due to ice and snow, initial encounter; Z79.4 Long term (current) use of insulin; K74.69 Other cirrhosis of liver; K75.81 Nonalcoholic steatohepatitis (NASH); I25.10 Atherosclerotic heart disease of native coronary artery without angina pectoris; Z95.5 Presence of coronary angioplasty implant and graft; I08.0 Rheumatic disorders of both mitral and aortic valves; K22.2 Esophageal obstruction; K21.9 Gastro-esophageal reflux disease without esophagitis; K22.70 Barrett's esophagus without dysplasia; K59.00 Constipation, unspecified; G57.01 Lesion of sciatic nerve, right lower limb; M70.61 Trochanteric bursitis, right hip; G62.9 Polyneuropathy, unspecified; G47.62 Sleep related leg cramps; Z86.73 Personal history of transient ischemic attack (TIA), and cerebral infarction without residual deficits; F32.A Depression, unspecified; E11.40 Type 2 diabetes mellitus with diabetic neuropathy, unspecified; E11.22 Type 2 diabetes mellitus with diabetic chronic kidney disease; E78.5 Hyperlipidemia, unspecified; D50.9 Iron deficiency anemia, unspecified; G47.33 Obstructive sleep apnea (adult) (pediatric); I73.9 Peripheral vascular disease, unspecified; K52.9 Noninfective gastroenteritis and colitis, unspecified; F41.9 Anxiety disorder, unspecified; G89.29 Other chronic pain; G47.00 Insomnia, unspecified
CPT/HCPCS: 36415; 36416; 73552; 80048; 80053; 82962; 83690; 84145; 85027; 85652; 86850; 86900; 86901; 87635; 96361; 96372; 96374; 97110; 97161; 97162; 97530; 99222; 99223; 99285; 72170; 74174; 81003; 81015; 83735; 85025; 85610; 85730; 86140; 93005; 93010; 99239; J1170; J1644; J2405; J3490; J8597

== ENCOUNTER 2022-12-16 09:56 | Outpatient (CLI) | payer MEDICARE, SELFPAY ==
--- NOTE | 2022-12-16 09:32 | DI.RAD_ITS ---
Exam(s) XR PELVIS AP EXAM: XR PELVIS AP CLINICAL HISTORY: fx f/u. TECHNIQUE: 2D digital imaging was performed. COMPARISON: CR,XR XR PELVIS AP from 11/21/[address] ABDOMEN PELVIS CTA from 11/22/2022 FINDINGS: BONES: Fractures of the left superior and inferior pubic ramus remain nondisplaced. No new fractures are seen. No bony destructive lesion is seen. JOINTS: No dislocation present. No joint space narrowing is present. Mild acetabular spurring. SOFT TISSUE: Normal. IMPRESSION: Stable appearance of left pubic ramus fractures. DATA REPOSITORY: RADIATION DOSE DELIVERED:
== END 2022-12-16 09:57 | disposition home or self-care (01) ==
LOC: DIORS 09:56
PROVIDERS: PCP Student in an Organized Health Care Education/Training Program; Referring Provider Student in an Organized Health Care Education/Training Program; Visit Provider Student in an Organized Health Care Education/Training Program
DX: S32.592A Other specified fracture of left pubis, initial encounter for closed fracture (principal); W01.0XXA Fall on same level from slipping, tripping and stumbling without subsequent striking against object, initial encounter
CPT/HCPCS: 99213; 72170

== ENCOUNTER 2022-12-23 13:17 | Outpatient (REF) | payer MEDICARE, SELFPAY ==
[2022-12-23 12:40] LABS: Abs Immature Grans 0.02 10^3/uL (0.0-0.06); Absolute Basophil Count 0.05 10^3/uL (0.0-0.2); Absolute Lymphocyte Count 2.61 10^3/uL (1.2-3.4); Absolute Monocyte Count 0.55 10^3/uL (0.1-0.8); Absolute Neutrophil Count 3.62 10^3/uL (1.2-6.7); Basophils % 0.7; Eosinophils % 1.4; HCT 38.5 % (36.0-46.0); HGB 12.1 g/dL (11.2-15.7); Immature Grans % 0.3; Lymphocytes % 37.6; MCHC 31.4 % (32.0-36.0); MCV 99 fL (80-95); MPV 10.7 fL (8.0-11.0); Monocytes % 7.9; Neutrophils % 52.1; Platelet Count 172 10^3/uL (130-400); RDW 12.9 % (11.7-14.6); RDW-SD 46.1 fL; WBC 6.95 10^3/uL (4.4-10.8)
[2022-12-23 13:23] LABS: ALT 41 U/L (14-59); AST 22 U/L (15-37); Albumin 4.2 g/dL (3.4-5.0); Alkaline Phosphatase 174 U/L (46-116); BUN 45 mg/dL (7-18); Bilirubin, Total 0.5 mg/dL (0.2-1.0); CREATININE 1.7 mg/dL (0.55-1.02); Calcium 10.2 mg/dL (8.5-10.1); Calculated LDL 49 mg/dL (<100); Chloride 102 mmol/L (98-107); Cholesterol 155 mg/dL (<200); Estimated GFR 32.26 (mL/min/1.73m2); Glucose 194 mg/dL (74-106); HDL Cholesterol 53 mg/dL (40-60); Magnesium 2.3 mg/dL (1.8-2.4); Potassium 5.2 mmol/L (3.5-5.1); Sodium 139 mmol/L (136-145); Triglyceride 266 mg/dL (<150)
[2022-12-23 13:46] LABS: Vitamin D 25 Total 20.9 ng/mL (30-100)
[2022-12-23 14:37] LABS: Hemoglobin A1C 7.3 % (<5.7)
[2022-12-23 14:54] LABS: Bilirubin, Direct 0.2 mg/dL (0.0-0.2)
== END 2022-12-23 13:18 | disposition home or self-care (01) ==
LOC: LBN 13:17
PROVIDERS: PCP Student in an Organized Health Care Education/Training Program; Visit Provider Student in an Organized Health Care Education/Training Program
DX: D50.0 Iron deficiency anemia secondary to blood loss (chronic) (principal); I10 Essential (primary) hypertension; I25.10 Atherosclerotic heart disease of native coronary artery without angina pectoris; N18.4 Chronic kidney disease, stage 4 (severe); R73.09 Other abnormal glucose; K74.60 Unspecified cirrhosis of liver; K75.81 Nonalcoholic steatohepatitis (NASH); Z91.81 History of falling
CPT/HCPCS: 80048; 80061; 80076; 82306; 83036; 83735; 85025

== ENCOUNTER 2022-12-24 17:20 | Outpatient (REF) | payer MEDICARE, SELFPAY | END 2022-12-24 17:21 | disposition home or self-care (01) | LOC: LBN 17:20 | PROVIDERS: PCP Student in an Organized Health Care Education/Training Program; Visit Provider Student in an Organized Health Care Education/Training Program | DX: D50.0 Iron deficiency anemia secondary to blood loss (chronic) (principal) | CPT/HCPCS: 82272 ==

== ENCOUNTER 2023-04-02 01:09 | Outpatient (CLI) | payer MEDICARE, SELFPAY ==
--- NOTE | 2023-04-02 08:00 | DI.RAD_ITS ---
Exam(s) XR RIBS RT W PA LAT CHEST EXAM: XR RIBS RT W PA LAT CHEST CLINICAL HISTORY: eval rib line pain with pressure/touch, RIB TENDERNESS, PLEURISY, R07.81 TECHNIQUE: 2D digital imaging was performed.Six images were obtained. COMPARISON: CR XR CHEST 2V PA LATERAL from 08/22/2021 FINDINGS: MEDIASTINUM: Normal. HEART: Normal. PULMONARY VASCULATURE: Normal. LUNGS: Clear. PLEURAL SPACE: No pleural effusion or pneumothorax. BONE:Normal. RIGHT RIBS: Normal. OTHER FINDINGS:Normal. IMPRESSION: 1. No acute pulmonary findings. 2. Unremarkable right ribs. DATA REPOSITORY: RADIATION DOSE DELIVERED:
== END 2023-04-02 01:29 ==
LOC: DI 01:09
PROVIDERS: PCP Student in an Organized Health Care Education/Training Program; Visit Provider Student in an Organized Health Care Education/Training Program
DX: R07.81 Pleurodynia (principal); R09.1 Pleurisy
CPT/HCPCS: 71046; 71100

== ENCOUNTER 2023-04-02 12:40 | Outpatient (CLI) | payer MEDICARE, SELFPAY ==
[2023-04-02 11:49] LABS: Bacteria Few HPF (Negative); C & S Indicated? No; Casts Negative LPF (Negative); Crystals Negative HPF (Negative); Epithelial Cells Few HPF (Negative); Mucus Trace (Negative); Other Cells Negative (Negative); RBC Negative HPF (0-2)
[2023-04-02 11:59] LABS: COMMENT (LAB VIEW ONLY) 29.51 mg/dL; PROTEIN 13.9 mg/dL; Prot/Crea Ur Ratio 0.47
[2023-04-02 12:02] LABS: Anion Gap 11.2 mmol/L (3-11); BUN 35 mg/dL (7-18); CO2 25.8 mmol/L (21.0-32.0); CREATININE 1.8 mg/dL (0.55-1.02); Calcium 9.9 mg/dL (8.5-10.1); Chloride 103 mmol/L (98-107); Estimated GFR 30.12 (mL/min/1.73m2); Glucose 231 mg/dL (74-106); Magnesium 1.9 mg/dL (1.8-2.4); PHOSPHORUS 4.2 mg/dL (2.6-4.7); Potassium 4.3 mmol/L (3.5-5.1); Sodium 140 mmol/L (136-145)
== END 2023-04-02 12:41 | disposition home or self-care (01) ==
LOC: LBO 12:40
PROVIDERS: PCP Student in an Organized Health Care Education/Training Program; Visit Provider Student in an Organized Health Care Education/Training Program
DX: K92.9 Disease of digestive system, unspecified (principal); N18.4 Chronic kidney disease, stage 4 (severe); R19.5 Other fecal abnormalities; R73.09 Other abnormal glucose; N17.9 Acute kidney failure, unspecified; I10 Essential (primary) hypertension
CPT/HCPCS: 36415; 80048; 81015; 82565; 83735; 84100; 84156

== ENCOUNTER 2023-04-16 02:10 | Outpatient (CLI) | payer MEDICARE, SELFPAY ==
[2023-04-16 11:48] LABS: Anion Gap 11.4 mmol/L (3-11); BUN 50 mg/dL (7-18); CO2 24.6 mmol/L (21.0-32.0); CREATININE 1.9 mg/dL (0.55-1.02); Calcium 9.9 mg/dL (8.5-10.1); Chloride 101 mmol/L (98-107); Estimated GFR 28.23 (mL/min/1.73m2); Glucose 356 mg/dL (74-106); Magnesium 2.2 mg/dL (1.8-2.4); Potassium 4.8 mmol/L (3.5-5.1); Sodium 137 mmol/L (136-145); TSH (W/Ref FT4) 1.31 uIU/mL (0.36-3.74)
[2023-04-16 12:03] LABS: Iron 90 ug/dL (50-170); Total Iron Binding Capacity 368 ug/dL (250-450); Transferrin Sat 24 % (15-50)
== END 2023-04-16 02:11 | disposition home or self-care (01) ==
LOC: LBO 02:11
PROVIDERS: PCP Student in an Organized Health Care Education/Training Program; Visit Provider Student in an Organized Health Care Education/Training Program
DX: I10 Essential (primary) hypertension (principal); E11.9 Type 2 diabetes mellitus without complications; I25.10 Atherosclerotic heart disease of native coronary artery without angina pectoris; K74.60 Unspecified cirrhosis of liver; N18.4 Chronic kidney disease, stage 4 (severe); Z86.2 Personal history of diseases of the blood and blood-forming organs and certain disorders involving the immune mechanism
CPT/HCPCS: 36415; 80048; 83540; 83550; 83735; 84443; 85018

== ENCOUNTER → 2023-07-27 09:28 | Outpatient (BNVA) | payer MEDICARE, SELFPAY | PROVIDERS: PCP Student in an Organized Health Care Education/Training Program; Referring Provider Student in an Organized Health Care Education/Training Program; Visit Provider Surgery | DX: L98.9 Disorder of the skin and subcutaneous tissue, unspecified (principal) | CPT/HCPCS: 99213 ==

== ENCOUNTER → 2023-08-24 10:25 | Outpatient (BNVA) | payer MEDICARE, SELFPAY | PROVIDERS: PCP Student in an Organized Health Care Education/Training Program; Referring Provider Student in an Organized Health Care Education/Training Program; Visit Provider Podiatrist | DX: G57.52 Tarsal tunnel syndrome, left lower limb (principal); M76.822 Posterior tibial tendinitis, left leg; M76.62 Achilles tendinitis, left leg; I73.9 Peripheral vascular disease, unspecified; E11.40 Type 2 diabetes mellitus with diabetic neuropathy, unspecified; M67.02 Short Achilles tendon (acquired), left ankle; R79.89 Other specified abnormal findings of blood chemistry | CPT/HCPCS: 99213 ==

== ENCOUNTER → 2023-08-30 02:52 | Outpatient (CLI) | payer MEDICARE, SELFPAY ==
--- NOTE | 2023-08-30 08:30 | DI.MRI_ITS ---
Exam(s) MR LOWER JOINT LT WO EXAM: MR LOWER JOINT LT WO CLINICAL HISTORY: Tarsal tunnel syndrome, left leg, POSTERIOR TIBIAL TENDINITIS, G57.52, TECHNIQUE: Multiplanar multisequence MRI was performed without intravenous contrast. COMPARISON: CR XR FOOT RT COMPLETE from 07/01/2022 CR XR FOOT LT COMPLETE from 07/01/2022 FINDINGS: BONES/JOINTS: No fracture or contusion pattern. No bone lesions identified. The talar dome is smooth. The ankle mortise is maintained. No joint effusion is present. Small calcaneal enthesophytes. LIGAMENTS: The tibiofibular and calcaneofibular ligaments are intact. The talofibular ligaments are i ntact. The deltoid ligament is intact. The syndesmosis is unremarkable. Sinus tarsi is normal. MUSCULOTENDINOUS STRUCTURES: Achilles tendon: Unremarkable. Plantar fascia: Unremarkable. Anterior Extensor tendons: Unremarkable. Posterior Tibialis: Unremarkable. Flexor Digitorum longus: Unremarkable. Flexor Hallucis longus: Unremarkable. Peroneus longus: Unremarkable. Peroneus brevis:Unremarkable. SOFT TISSUES: Ralc-zo-[id number] atrophy seen involving the abductor hallucis and flexor digitorum brev is muscles. Mild muscle edema in the abductor hallucis muscle. Mildly prominent vessels in the tarsal tunnel. Findings could indicate tarsal tunnel syndrome. OTHER FINDINGS: None. IMPRESSION: Prominent vessels in the tarsal tunnel. Edema within the abductor hallucis muscle with atrophy from, consistent with partial tunnel syndrome. DATA REPOSITORY:
== END ==
PROVIDERS: PCP Student in an Organized Health Care Education/Training Program; Visit Provider Podiatrist
DX: G57.52 Tarsal tunnel syndrome, left lower limb (principal); M76.822 Posterior tibial tendinitis, left leg
CPT/HCPCS: 73721

== ENCOUNTER 2023-10-08 09:56 | Outpatient (CLI) | payer MEDICARE, SELFPAY ==
[2023-10-08 10:12] LABS: HGB 12.7 g/dL (11.2-15.7)
[2023-10-08 10:29] LABS: Anion Gap 12.3 mmol/L (3-11); BUN 37 mg/dL (7-18); CO2 24.7 mmol/L (21.0-32.0); CREATININE 1.7 mg/dL (0.55-1.02); Calcium 10.3 mg/dL (8.5-10.1); Chloride 103 mmol/L (98-107); Estimated GFR 32.06 (mL/min/1.73m2); Glucose 162 mg/dL (74-106); Magnesium 1.9 mg/dL (1.8-2.4); PHOSPHORUS 3.5 mg/dL (2.6-4.7); Potassium 4.6 mmol/L (3.5-5.1); Sodium 140 mmol/L (136-145)
[2023-10-08 10:56] LABS: Vitamin B12 457 pg/mL (193-986)
== END 2023-10-08 09:57 | disposition home or self-care (01) ==
LOC: LBO 09:56
PROVIDERS: Podiatrist; PCP Student in an Organized Health Care Education/Training Program; Visit Provider Student in an Organized Health Care Education/Training Program
DX: E87.8 Other disorders of electrolyte and fluid balance, not elsewhere classified (principal); G47.62 Sleep related leg cramps; G57.52 Tarsal tunnel syndrome, left lower limb; G57.93 Unspecified mononeuropathy of bilateral lower limbs; I10 Essential (primary) hypertension; M76.822 Posterior tibial tendinitis, left leg; N17.9 Acute kidney failure, unspecified; N18.4 Chronic kidney disease, stage 4 (severe); R79.89 Other specified abnormal findings of blood chemistry; Z79.899 Other long term (current) drug therapy
CPT/HCPCS: 36415; 80048; 82607; 83735; 84100; 85018

== ENCOUNTER 2023-10-13 04:52 | Outpatient (CLI) | payer MEDICARE, SELFPAY ==
[2023-10-13 11:44] LABS: Anion Gap 11.1 mmol/L (3-11); BUN 53 mg/dL (7-18); CO2 26.9 mmol/L (21.0-32.0); CREATININE 1.8 mg/dL (0.55-1.02); Calcium 10.2 mg/dL (8.5-10.1); Chloride 102 mmol/L (98-107); Estimated GFR 29.94 (mL/min/1.73m2); Glucose 172 mg/dL (74-106); Magnesium 2.1 mg/dL (1.8-2.4); PHOSPHORUS 4.1 mg/dL (2.6-4.7); Potassium 4.2 mmol/L (3.5-5.1); Sodium 140 mmol/L (136-145)
== END 2023-10-13 04:53 | disposition home or self-care (01) ==
LOC: LBO 04:53
PROVIDERS: PCP Student in an Organized Health Care Education/Training Program; Referring Provider Student in an Organized Health Care Education/Training Program; Visit Provider Student in an Organized Health Care Education/Training Program
DX: N18.9 Chronic kidney disease, unspecified (principal); Z79.1 Long term (current) use of non-steroidal anti-inflammatories (NSAID); Z91.89 Other specified personal risk factors, not elsewhere classified
CPT/HCPCS: 36415; 80048; 83735; 84100

== ENCOUNTER 2023-10-20 04:19 | Outpatient (CLI) | payer MEDICARE, SELFPAY ==
[2023-10-20 13:22] LABS: Anion Gap 7.3 mmol/L (3-11); BUN 34 mg/dL (7-18); CO2 28.7 mmol/L (21.0-32.0); CREATININE 1.8 mg/dL (0.55-1.02); Calcium 9.3 mg/dL (8.5-10.1); Chloride 105 mmol/L (98-107); Estimated GFR 29.94 (mL/min/1.73m2); Glucose 178 mg/dL (74-106); Magnesium 1.7 mg/dL (1.8-2.4); Potassium 4.8 mmol/L (3.5-5.1); Sodium 141 mmol/L (136-145)
== END 2023-10-20 04:20 | disposition home or self-care (01) ==
LOC: LBO 04:19
PROVIDERS: PCP Student in an Organized Health Care Education/Training Program; Referring Provider Student in an Organized Health Care Education/Training Program; Visit Provider Student in an Organized Health Care Education/Training Program
DX: N18.4 Chronic kidney disease, stage 4 (severe) (principal)
CPT/HCPCS: 36415; 80048; 83735

== ENCOUNTER 2023-10-22 16:57 | Outpatient (REF) | payer MEDICARE, SELFPAY | END 2023-10-22 16:58 | disposition home or self-care (01) | LOC: LBN 16:57 | PROVIDERS: PCP Student in an Organized Health Care Education/Training Program; Visit Provider Student in an Organized Health Care Education/Training Program | DX: R35.89 Other polyuria (principal); R82.998 Other abnormal findings in urine | CPT/HCPCS: 87086 ==

== ENCOUNTER → 2023-10-26 08:09 | Outpatient (BNVA) | payer MEDICARE, SELFPAY | PROVIDERS: PCP Student in an Organized Health Care Education/Training Program; Referring Provider Student in an Organized Health Care Education/Training Program; Visit Provider Psychiatry & Neurology Neurology | DX: E11.42 Type 2 diabetes mellitus with diabetic polyneuropathy (principal); M79.672 Pain in left foot | CPT/HCPCS: 95885; 95887; 95909 ==

== ENCOUNTER → 2023-10-27 01:47 | Outpatient (CLI) | payer MEDICARE, SELFPAY ==
--- NOTE | 2023-10-27 08:00 | DI.US_ITS ---
Exam(s) US RENAL EXAM: US RENAL CLINICAL HISTORY: eval 18x15 mm nodule ON 11/22/22 CTA,RT KIDNEY MASS,N28.89. TECHNIQUE: Lawrence scale, color and spectral Doppler were used. COMPARISON: CT CT ABDOMEN PELVIS WO from 08/22/2021 MR MR ABDOMEN WO from 02/02/[address] ABDOMEN PELVIS CTA from 11/22/2022 FINDINGS: Exam is limited by patient body habitus. Renal size in cm: Right: 8.7 left: 8.7 Echogenicity: Normal Hydronephrosis: No Cyst or mass: Small renal cysts. The lesion in question on recent CT was seen on prior MRI and has t he typical appearance of a proteinaceous cyst. It also has the typical appearance of a high-density, proteinaceous cyst on prior CT abdomen pelvis from 2020. Nephrolithiasis: No Bladder:No gross abnormality. Not well distended.. Prevoid vol: 19 cc Postvoid vol: Not performed IMPRESSION: Small bilateral renal cysts. The lesion in question on the 2022 CT is consistent with a proteinaceou s cysts by prior imaging. No suspicious masses are visible by ultrasound, however the exam is limited by patient body habitus. DATA REPOSITORY:
== END ==
PROVIDERS: PCP Student in an Organized Health Care Education/Training Program; Visit Provider Student in an Organized Health Care Education/Training Program
DX: N28.89 Other specified disorders of kidney and ureter (principal)
CPT/HCPCS: 76770

== ENCOUNTER 2023-11-16 04:45 | Outpatient (CLI) | payer MEDICARE, SELFPAY ==
[2023-11-16 10:19] LABS: Anion Gap 9.2 mmol/L (3-11); BUN 37 mg/dL (7-18); CO2 26.8 mmol/L (21.0-32.0); CREATININE 1.7 mg/dL (0.55-1.02); Calcium 9.9 mg/dL (8.5-10.1); Chloride 101 mmol/L (98-107); Estimated GFR 32.06 (mL/min/1.73m2); Glucose 218 mg/dL (74-106); Potassium 4.4 mmol/L (3.5-5.1); Sodium 137 mmol/L (136-145)
== END 2023-11-16 04:46 | disposition home or self-care (01) ==
LOC: LBO 04:45
PROVIDERS: Absent Provider Student in an Organized Health Care Education/Training Program; PCP Student in an Organized Health Care Education/Training Program; Visit Provider Student in an Organized Health Care Education/Training Program
DX: E87.8 Other disorders of electrolyte and fluid balance, not elsewhere classified (principal); N18.9 Chronic kidney disease, unspecified; R79.0 Abnormal level of blood mineral
CPT/HCPCS: 36415; 80048; 83735

== ENCOUNTER → 2023-11-25 12:58 | Outpatient (BNVA) | payer MEDICARE, SELFPAY | PROVIDERS: PCP Student in an Organized Health Care Education/Training Program; Referring Provider Student in an Organized Health Care Education/Training Program; Visit Provider Podiatrist | DX: G57.52 Tarsal tunnel syndrome, left lower limb; E11.40 Type 2 diabetes mellitus with diabetic neuropathy, unspecified; I73.9 Peripheral vascular disease, unspecified; M76.822 Posterior tibial tendinitis, left leg; M76.62 Achilles tendinitis, left leg; M67.02 Short Achilles tendon (acquired), left ankle; G57.93 Unspecified mononeuropathy of bilateral lower limbs; R79.89 Other specified abnormal findings of blood chemistry; M79.672 Pain in left foot | CPT/HCPCS: 96372; 99215 ==

== ENCOUNTER → 2023-12-06 03:32 | Outpatient (CLI) | payer MEDICARE, SELFPAY ==
--- NOTE | 2023-12-06 09:50 | DI.MRI_ITS ---
Exam(s) MR PELVIS WO EXAM: MR PELVIS WO CLINICAL HISTORY: eval pelvic Fx as possible worsening L radiculopathy,fall, closed fx TECHNIQUE: Multiplanar multisequence MRI of Pelvis was performed COMPARISON: CT CT ABDOMEN PELVIS CTA from 11/22/2022 CR XR PELVIS AP from 12/16/2022 FINDINGS: Osseous: There is prominent callus at and healed fracture site in the mid aspect of the inferior pubi c ramus. There is also healing fracture site at the junction of the ipsilateral superior pubic ramus and acetabulum. There is no significant bone edema at either site and there are no new fractures id entified. Symphysis pubis unremarkable. No significant signal abnormality in the hips the exception of some small benign cysts in the left femoral head-neck. No evidence of hip fracture or avascular necrosis. Sacroiliac joints unremarkable. No evidence of sacral fracture. Musculotendinous: There is fluid signal at the insertional aspects of both hamstring groups on the is chial tuberosities, more so on the right side where there is partial tearing at this level. No retra ction of the tendon. No other abnormal muscular signal evident. Other: Uterus and adnexal regions appear age-appropriate. No free fluid in the pelvis. There is sig moid diverticulosis without evidence of obvious acute diverticulitis. There is no intrapelvic nor in guinal adenopathy. Urinary bladder is not distended. IMPRESSION: Healing with prominent callus formation at the left inferior pubic ramus fracture site. Healing at the more medially located superior pubic ramus fracture site at its junction with the left acetabulum. No new fractures evident. Right hamstrings attachment partial tearing. Sigmoid diverticulosis. DATA REPOSITORY:
--- NOTE | 2023-12-06 10:25 | DI.MRI_ITS ---
Exam(s) MR LUMBAR SPINE WO EXAM: MR LUMBAR SPINE WO CLINICAL HISTORY: eval L4-5 radiculopathy VS Tarsal Tunnel Syndrome,neuropathy.M54.17. TECHNIQUE: Multiplanar multisequence MRI of the Lumbar spine was performed. COMPARISON: MR MRI LUMBAR,PELVIS,HIPS WO from 08/26/2016 DX XR LUMBAR SPINE 2 OR 3 VIEWS (GENERIC) from 09/28/2023 FINDINGS: Conus medullaris is at normal level. There is no evidence of conus mass nor subjacent clumping of in trathecal nerve roots to suggest arachnoiditis. The distal thecal sac appears unremarkable.There is no evidence of Tarlov intrasacral cysts nor other significant findings within the sacral canal Bones:There are no fractures nor ominous osseous lesions in the lumbar vertebral bodies and visualize d sacrum. With respect to the individual levels... T12-L1: Unremarkable L1-2: Normal disc height and signal. No disc herniation nor central canal stenosis.No foraminal steno sis L2-3: Normal disc height. No disc herniation nor central canal stenosis.No foraminal stenosis.No face t arthropathy. L3-4: Normal disc height. No disc herniation or central canal stenosis.No foraminal stenosis.No face t arthropathy. L4-5: Preserved disc height. There is absence of the previously present lateral left disc herniation seen in the exiting left neural foramen on the prior MRI scan of August 2016. Small lateral left osteophytes now evident at this level but no new. There is some annular bulging in the floor of the exiting left neural foramen again noted but the previously present superimposed disc herniation is no longer seen and there is no significant foraminal stenosis at this level on today's study. Also no significant central canal stenosis There are moderate degenerative changes in the facet joints evident. L5-S1: This level again exhibits chronic decreased disc height and signal with mild anterolisthesis L 5 upon S1 related to facet arthropathy. There are no pars interarticularis defects evident. Central canal dimensions are lower normal. There is an element of vertical foraminal stenosis bilaterally r elated to disc height loss. However, on left side there is an additional superimposed density betwee n the underlying annulus and the exiting left nerve root subjacent to the left L5 pedicle. This find ing was not evident on the prior MRI scan of August 2016. Is difficult to determine if this is a h erniated disc fragment or degenerative synovial cyst off the anterior aspect of the left facet joint at this level.. This measures 1.3 cm wide by 0.8 cm AP by 0.4 cm craniocaudal. Soft tissues: paraspinal soft tissues appear unremarkable.In in addition to bilateral small kidney c ysts, there is also a nodular density in the posterior cortex of the right kidney measuring 1.2 x 1.2 cm as well as a similar slightly smaller nodular density anteriorly in the lower pole the right kidn ey measuring 0.8 x 0.9 cm. These can be further studied with ultrasound to determine if they are jus t hemorrhagic cysts or solid nodules. IMPRESSION: 1. Compared to the prior MRI scan of August 2016 the previously present left lateral disc herniatio n in the exiting left neural foramen at L4-5 level is no longer seen and there is no foraminal stenos is at this level on today's study. Also no significant central canal stenosis. 2. At L5-S1 level there is again noted advanced disc space narrowing and there is mild degenerative a nterolisthesis of L5 upon S1 due to advanced facet arthropathy. In addition to mild moderate vertica l foraminal stenosis there is also a 13 x 8 x 4 mm posterolateral left finding at this level which is difficult to differentiate as a herniated disc fragment or degenerative subarticular cyst coming off the anterior aspect of the degenerated left facet joint at this level. Nevertheless, it is resultin g in impingement of the exiting left nerve root at this level just below the left pedicle of L5. 3. Small bilateral kidney cysts. Also 2 findings in the right kidney which do not exhibit signal chelsey racteristics typical of cysts and therefore follow-up ultrasound is recommended to determine if these are possibly hemorrhagic cyst or other more concerning pathology. DATA REPOSITORY:
== END ==
PROVIDERS: PCP Student in an Organized Health Care Education/Training Program; Visit Provider Student in an Organized Health Care Education/Training Program
DX: S32.592A Other specified fracture of left pubis, initial encounter for closed fracture; M54.17 Radiculopathy, lumbosacral region; X58.XXXA Exposure to other specified factors, initial encounter
CPT/HCPCS: 72148; 72195

== ENCOUNTER 2023-12-06 03:54 | Outpatient (RCR) | payer MEDICARE, SELFPAY ==
[2023-12-06 11:15] VITALS: BP 106/64; PULSE 57; RESP 16; O2SAT 97
[2023-12-06] MEDS: Normal Saline 1,000 ML 500 ML IV (11:20)
[2023-12-06] MEDS: Normal Saline Flush 10 ML SYR IVP (11:24)
[2023-12-06 11:50] VITALS: BP 93/56; PULSE 68; RESP 16; O2SAT 95
[2023-12-06 12:20] VITALS: BP 93/58; PULSE 58; RESP 17; O2SAT 98
== END 2023-12-09 23:59 | disposition home or self-care (01) ==
LOC: INF 03:54
PROVIDERS: PCP Student in an Organized Health Care Education/Training Program; Visit Provider Student in an Organized Health Care Education/Training Program
DX: N18.30 Chronic kidney disease, stage 3 unspecified (principal); Z91.89 Other specified personal risk factors, not elsewhere classified; K59.00 Constipation, unspecified
CPT/HCPCS: 96360

== ENCOUNTER → 2023-12-13 13:27 | Outpatient (BNVA) | payer MEDICARE, SELFPAY | PROVIDERS: PCP Student in an Organized Health Care Education/Training Program; Referring Provider Student in an Organized Health Care Education/Training Program; Visit Provider Podiatrist | DX: G57.52 Tarsal tunnel syndrome, left lower limb (principal); F45.42 Pain disorder with related psychological factors; F32.1 Major depressive disorder, single episode, moderate | CPT/HCPCS: 99214 ==

== ENCOUNTER 2023-12-30 05:45 | Outpatient (CLI) | payer MEDICARE, SELFPAY ==
[2023-12-30 09:09] LABS: Anion Gap 9.1 mmol/L (3-11); BUN 51 mg/dL (7-18); CO2 27.9 mmol/L (21.0-32.0); Calcium 10.1 mg/dL (8.5-10.1); Chloride 104 mmol/L (98-107); Estimated GFR 26.38 (mL/min/1.73m2); Glucose 153 mg/dL (74-106); Potassium 4.2 mmol/L (3.5-5.1); Sodium 141 mmol/L (136-145)
== END 2023-12-30 05:46 | disposition home or self-care (01) ==
LOC: LBO 05:45
PROVIDERS: Absent Provider Student in an Organized Health Care Education/Training Program; PCP Student in an Organized Health Care Education/Training Program; Referring Provider Student in an Organized Health Care Education/Training Program; Visit Provider Student in an Organized Health Care Education/Training Program
DX: N18.9 Chronic kidney disease, unspecified (principal)
CPT/HCPCS: 36415; 80048

== ENCOUNTER → 2024-01-31 09:22 | Outpatient (BNVA) | payer MEDICARE, SELFPAY | PROVIDERS: PCP Student in an Organized Health Care Education/Training Program; Referring Provider Student in an Organized Health Care Education/Training Program; Visit Provider Podiatrist | DX: G57.52 Tarsal tunnel syndrome, left lower limb (principal); F45.42 Pain disorder with related psychological factors; F32.1 Major depressive disorder, single episode, moderate | CPT/HCPCS: 20550 ==

== ENCOUNTER 2024-03-20 16:32 | Outpatient (CLI) | payer MEDICARE, SELFPAY ==
[2024-03-20 16:40] LABS: Anion Gap 10.5 mmol/L (3-11); BUN 46 mg/dL (7-18); CO2 27.5 mmol/L (21.0-32.0); CREATININE 1.8 mg/dL (0.55-1.02); Calcium 9.1 mg/dL (8.5-10.1); Chloride 101 mmol/L (98-107); Estimated GFR 29.94 (mL/min/1.73m2); Glucose 281 mg/dL (74-106); Potassium 4.8 mmol/L (3.5-5.1); Sodium 139 mmol/L (136-145)
[2024-03-20 17:16] LABS: Uric Acid 6.5 mg/dL (2.6-6.0)
== END 2024-03-20 16:33 | disposition home or self-care (01) ==
LOC: LBO 16:32
PROVIDERS: Internal Medicine; PCP Student in an Organized Health Care Education/Training Program; Visit Provider Student in an Organized Health Care Education/Training Program
DX: E79.0 Hyperuricemia without signs of inflammatory arthritis and tophaceous disease (principal)
CPT/HCPCS: 36415; 80048; 84550

== ENCOUNTER → 2024-04-04 10:05 | Outpatient (BNVA) | payer MEDICARE, SELFPAY | PROVIDERS: PCP Student in an Organized Health Care Education/Training Program; Referring Provider Student in an Organized Health Care Education/Training Program; Visit Provider Podiatrist | DX: G57.52 Tarsal tunnel syndrome, left lower limb (principal); F45.42 Pain disorder with related psychological factors; F32.1 Major depressive disorder, single episode, moderate; M67.02 Short Achilles tendon (acquired), left ankle; M76.822 Posterior tibial tendinitis, left leg; M76.62 Achilles tendinitis, left leg; M76.71 Peroneal tendinitis, right leg | CPT/HCPCS: 99213 ==

== ENCOUNTER → 2024-04-18 09:02 | Outpatient (CLI) | payer MEDICARE, SELFPAY ==
--- NOTE | 2024-04-18 07:00 | DI.US_ITS ---
Exam(s) US ABDOMEN LIMITED EXAM: US ABDOMEN LIMITED CLINICAL HISTORY: eval liver,ruq discomfort,pain,h/o fatty infiltration,r10.11,z87.19 TECHNIQUE: Ultrasound abdomen performed using standard protocol. COMPARISON: CT CT ABDOMEN PELVIS CTA from 11/22/2022 FINDINGS: LIVER: Enlarged. Mild hepatic steatosis. No focal liver lesions are seen. GALLBLADDER: Status post cholecystectomy. Small remnant of gallbladder is noted, unchanged from prio r CT. Adjacent shadowing related to surgical clips. No evidence of cholelithiasis. No pericholecys tic fluid identified. LAUREN'S SIGN: Patient was tender while scanning in the right upper quadrant. BILIARY SYSTEM: No intrahepatic or extrahepatic biliary ductal dilation. Common bile duct measures 5 -6 millimeters. Right kidney: Multiple small cysts. No evidence of hydronephrosis. PANCREAS: Normal where visualized. SPLEEN: Not enlarged. ABDOMINAL AORTA AND IVC: Visualized portions normal caliber. ASCITES: None seen. IMPRESSION: Mildly enlarged liver with mild hepatic steatosis. Status post cholecystectomy with a small gallbladder remnant visible. No biliary dilatation or commo n duct stones. DATA REPOSITORY:
--- NOTE | 2024-04-18 07:00 | DI.RAD_ITS ---
Exam(s) XR FOOT RT COMPLETE EXAM: XR FOOT RT COMPLETE CLINICAL HISTORY: eval for rt toe gout,rt toe pain,m79.674. TECHNIQUE: 2D digital imaging was performed. Three views. COMPARISON: No exams were available for comparison FINDINGS: BONES: No acute fracture is present. No bony destructive lesion is seen. Plantar calcaneal spur. Sm all enthesophyte at Achilles insertion. JOINTS: No dislocation present. SOFT TISSUE: Vascular calcifications. IMPRESSION: No findings specific for gout. DATA REPOSITORY: RADIATION DOSE DELIVERED:
== END ==
PROVIDERS: PCP Student in an Organized Health Care Education/Training Program; Visit Provider Student in an Organized Health Care Education/Training Program
DX: M79.674 Pain in right toe(s) (principal); M10.9 Gout, unspecified; R10.11 Right upper quadrant pain; Z87.19 Personal history of other diseases of the digestive system; K91.5 Postcholecystectomy syndrome; K76.0 Fatty (change of) liver, not elsewhere classified
CPT/HCPCS: 73630; 76705

== ENCOUNTER 2024-04-24 03:51 | Outpatient (CLI) | payer MEDICARE, SELFPAY ==
[2024-04-24 14:42] LABS: Abs Immature Grans 0.01 10^3/uL (0.0-0.06); Absolute Basophil Count 0.03 10^3/uL (0.0-0.2); Absolute Lymphocyte Count 2.35 10^3/uL (1.2-3.4); Absolute Monocyte Count 0.48 10^3/uL (0.1-0.8); Absolute Neutrophil Count 4.28 10^3/uL (1.2-6.7); Basophils % 0.4 %; Eosinophils % 1.4 %; HCT 34.9 % (36.0-46.0); HGB 11.6 g/dL (11.2-15.7); Immature Grans % 0.1 %; Lymphocytes % 32.4 %; MCH 32.2 pg (27.0-33.0); MCHC 33.2 % (32.0-36.0); MCV 97 fL (80-95); MPV 10.1 fL (8.0-11.0); Monocytes % 6.6 %; Neutrophils % 59.1 %; Platelet Count 186 10^3/uL (130-400); RDW 13.2 % (11.7-14.6); WBC 7.25 10^3/uL (4.4-10.8)
[2024-04-24 16:08] LABS: ALT 74 U/L (14-59); AST 34 U/L (15-37); Albumin 3.6 g/dL (3.4-5.0); Alkaline Phosphatase 110 U/L (46-116); Anion Gap 9.3 mmol/L (3-11); BUN 42 mg/dL (7-18); Bilirubin, Total 0.36 mg/dL (0.2-1.0); CO2 26.7 mmol/L (21.0-32.0); CREATININE 1.7 mg/dL (0.55-1.02); Calcium 9.7 mg/dL (8.5-10.1); Chloride 103 mmol/L (98-107); Estimated GFR 31.86 (mL/min/1.73m2); Glucose 174 mg/dL (74-106); Potassium 5.5 mmol/L (3.5-5.1); Sodium 139 mmol/L (136-145); Total Protein 8.2 g/dL (6.4-8.2); Vitamin D 25 Total 21.5 ng/mL (30-100)
[2024-04-28 09:57] LABS: Iron 56 ug/dL (50-170)
== END 2024-04-24 03:52 | disposition home or self-care (01) ==
LOC: LBO 03:51
PROVIDERS: PCP Student in an Organized Health Care Education/Training Program; Visit Provider Student in an Organized Health Care Education/Training Program
DX: K90.9 Intestinal malabsorption, unspecified (principal); I10 Essential (primary) hypertension; I50.9 Heart failure, unspecified; E11.40 Type 2 diabetes mellitus with diabetic neuropathy, unspecified; R79.89 Other specified abnormal findings of blood chemistry; K31.84 Gastroparesis; E88.89 Other specified metabolic disorders; N18.9 Chronic kidney disease, unspecified; M10.9 Gout, unspecified; D64.9 Anemia, unspecified
CPT/HCPCS: 36415; 80053; 82306; 83540; 85025

== ENCOUNTER 2024-05-02 12:01 | Outpatient (CLI) | payer MEDICARE, SELFPAY ==
--- OUTSIDE RECORDS SUMMARY | 2024-05-02 12:03 | XMS_ITS | Continuity of Care Document ---
Author Organization [facility] Ambulatory Clinics Address [address] [place] [address] Care Team Providers Care Floor Hand Name Role Phone BECKI TURCIOS, CARISA Powers Primary Care Physicia n Encounter [facility] NBR [id number] Date(s): 09/07/23 - 09/07/23 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) - 09/07/23 Unspecified cirrhosis of liver(Discharge Diagnosis) - 09/07/23 Chronic kidney disease(Discharge Diagnosis) - 09/07/23 Disorder of the skin and subcutaneous tissue, unspecified(Final) - Discharge Disposition: Home or Self Care Attending Physician: Nhan Hagen DO Referring Physician: BECKI TURCIOS, CARISA Powers Allergies, Adverse Reactions, Alerts Substance Reaction Severity Status metoclopramide Unknown Active propoxyphene Unknown Active Pollen Unknown Active Assessment and Plan Future Appointments Medications aspirin 81 mg oral capsule 81 mg = 1 cap, Oral, Daily, do not exceed 48 capsules in 24 hours, # 30 cap, 0 Refill(s) Start Date: 09/06/23 Status: Ordered atorvastatin 0 Refill(s) Start Date: 09/06/23 Status: Ordered Blood Glucose Monitor Kit Supply, See instructions, # 1 EA, 0 Refill(s) Start Date: 09/06/23 Status: Ordered empagliflozin 10 mg oral tablet 10 mg = 1 tab, Oral, Daily, # 30 tab, 0 Refill(s) Start Date: 09/06/23 Status: Ordered ezetimibe 10 mg oral tablet 10 mg = 1 tab, Oral, Daily, # 30 tab, 0 Refill(s) Start Date: 09/06/23 Status: Ordered gabapentin 300 mg oral capsule See Instructions, x5 cap Oral at bedtime, 0 Refill(s) Start Date: 09/06/23 Status: Ordered isosorbide mononitrate 30 mg oral tablet, extended release 30 mg = 1 tab, Oral, every morning, # 30 tab, 0 Refill(s) Start Date: 09/06/23 Status: Ordered lisinopril 2.5 mg oral tablet 2.5 mg = 1 tab, Oral, BID, 0 Refill(s) Start Date: 09/06/23 Status: Ordered Melatonin 3 mg oral tablet 0 Refill(s) Start Date: 09/06/23 Status: Ordered methylcellulose compounding powder 0 Refill(s) Start Date: 09/06/23 Status: Ordered metoprolol succinate 50 mg oral capsule, extended release 50 mg = 1 cap, Oral, Daily, # 30 cap, 0 Refill(s) Start Date: 09/06/23 Status: Ordered nitroglycerin 0.4 mg =, Sublingual, every 5 min, PRN as needed for chest pain, 0 Refill(s) Start Date: 09/06/23 Status: Ordered pantoprazole 40 mg oral delayed release tablet 40 mg = 1 tab, Oral, Daily, # 30 tab, 0 Refill(s) Start Date: 09/06/23 Status: Ordered torsemide 10 mg oral tablet 10 mg = 1 tab, Oral, Daily, # 30 tab, 0 Refill(s) Start Date: 09/06/23 Status: Ordered Voltaren 1% topical gel 1 gemini, Topical, QID, # 100 g, 0 Refill(s) Start Date: 09/06/23 Status: Ordered Problem List Condition Confirmation Course Effective Dates Status H ealth Status Informant Achilles tendinitis, left leg Confirmed Active Anemia Confirmed Active Anxiety Confirmed Active Aortic valve stenosis, nonrheumatic Confirmed Active ASCVD (arteriosclerotic cardiovascular disease) Confirmed Active Barretts esophagus Confirmed Active Bradycardia Confirmed Active CKD (chronic kidney disease) Confirmed Active 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 Confirmed Active CHF (congestive heart failure) Confirmed Active Contracture of left Achilles tendon Confirmed Active CAD (coronary artery disease) Confirmed Active Nocturnal leg cramps Confirmed Active Diabetes mellitus with neuropathy Confirmed Active Diverticulosis Confirmed Active Dysphagia Confirmed Active Left foot pain Confirmed Active Neuropathic pain of both feet Confirmed Active GERD (gastroesophageal reflux disease) Confirmed Active Heart failure with reduced ejection fraction Confirmed Active Hyperlipemia Confirmed Active Hypertension Confirmed Active Tarsal tunnel syndrome of left side Confirmed Active Mitral valve disease Confirmed Active Neuropathic pain Confirmed Active KINGSLEY (obstructive sleep apnea) Confirmed Active Arterial insufficiency, posterior tibial Confirmed Active Nodule of kidney Confirmed Active Right flank pain Confirmed Active Non-healing skin lesion Confirmed Active Skin lesion Confirmed Active Esophageal stricture Confirmed Active Tendinitis of ankle Confirmed Active Posterior tibial tendinitis, left leg Confirmed Active Non-insulin dependent type 2 diabetes mellitus Confirmed Active Procedures Procedure Date Related Diagnosis Body Site Status Cardiac catheter 02/06/21 Complete d ERCP (Endoscopic retrograde cholangiopancreatography) normal 01/16/21 Completed Social History Social History Type Response Tobacco Never tobacco user T obacco Use:. Sex Physician Outpatient Note * Nhan Hagen, DO: PERFORM Nhan Hagen, DO: PERFORM, MODIFY Nhan Hagen, DO: MODIFY, MODIFY Event Display: Office Clinic Note Physician Authored Date: [id number] ANNA LION I :1955 Age:68 years Sex:Female Visit Date:09/07/2023 Primary Care Physician: CARISA CONNELL MD, V Chief Complaint skin lesion History of Present Illness New patient in the office today for skin lesions on face and back.??Patient states that the lesion on her face has been there for about a year. Patient is a diabetic and was thinking that the lesion just wasn't healing fast enough and forgot about it. Patient states that the lesion on the back itches and bleeds on and off. Patient has no history of skin cancer and has not had any biopsies taken from her skin in the past.?? The patient has been placed on antibiotics??for the left??nasolabial fold lesion without improvement, she is concerned about this, she is requesting a??full-body skin checktoday. ??She has a history of significant heart disease with 2??blocked coronary arteries that are remaining, she is status post cardiac. ??She also has chronic kidney disease, not on dialysis, she sees nephrology??at [facility]. Review of Systems Fatigue?? Negative.?? Fever?? Negative.?? Weight Loss?? Negative.?? Snoring?? Negative.?? Hoarseness?? Negative.?? Glaucoma?? Negative.?? Double Vision?? Negative.?? Other eye problems?? Negative.?? Loss of taste?? Negative.?? Loss of smell?? Negative.?? Sinus trouble?? Negative.?? Difficulty swallowing?? Negative.?? High blood pressure?? Negative.?? Heart failure?? Negative.?? Chest pain/Angina?? Negative.?? Heart Attack?? Negative.?? Ankle/Foot swelling?? Negative.?? Shortness of breath?? Negative.?? High cholesterol?? Negative.?? Cough?? Negative.?? Diabetes?? Negative.?? Ulcer?? Negative.?? Blood in Stool ?? Negative.?? Colitis?? Negative.?? Prostate Problems?? Negative.?? Kidney Stones? ? Negative.?? Hepatitis?? Negative.?? Liver trouble?? Negative.?? Gall bladder problems?? Negative.?? Kidney infection?? Negative.?? Blood in urine?? Negative.?? Bladder infection?? Negative.?? Arthritis?? Negative.?? Fibromyalgia?? Negative.?? Bone disease?? Negative.?? Joint disease?? Negative.??Back problems?? Negative.?? Breast (lump/tumor)?? Negative.?? Rashes?? Negative.?? Eczema?? Negative.?? Headaches?? Negative.?? Meningitis?? Negative.?? Thyroid Problems?? Negative.?? Pituitary Problems?? Negative.?? Bleeding Disorder?? Negative.?? Anemia?? Negative.?? Lymphoma?? Negative.?? Venereal Disease?? Negative.?? AIDS/HIV?? Negative.?? Cancer?? Negative.?? Blood transfusion?? Negative.??Seizures?? Negative.?? Loss of consciousness?? Negative.?? Head Injury/concussion?? Negative.?? Multiple Sclerosis?? Negative.?? Nervous disorder?? Negative.?? Anxiety?? Negative.?? Depression?? Negative.?? Frequent infection?? Negative.?? Environmental allergies?? Negative.?? Hay Fever?? Negative.?? Reflux?? Negative.?? Sleep apnea?? Negative.?? Physical Exam GENERAL APPEARANCE:??The patient is awake, alert, and oriented and in no acute distress, Appears nutritionally sound, Healthy in appearance, Voice is strong, with no stridor or stertor, Handling secretions without difficulty.?PSYCH:??affect normal, good eye contact, oriented to person, oriented to place, oriented to time.?NEURO:??CN's II-XII grossly intact, Gait is normal, The patient has endpoint nystagmus only.?HEENT:??The patient is normocephalic with a normal facies with cranial nerves 2 through 12 bilaterally equal and intact. Pupils are equal and reactive to light with extraocular movements bilaterally equal and intact. There is no proptosis or enophthalmos,?HEART:??regular rate and rhythm.?LUNGS:??clear to auscultation bilaterally, no wheezes/rhonchi/rales.?SKIN:??Nonhealing lesion left nasolabial fold,??nonhealing lesion left mid back ?MUSCULOSKELETAL:??normal gait and station.?? Procedure Surgery Consent??There was a full discussion of all treatment options including conservative management, second opinion and surgical intervention. The patient and or family has opted to proceed with surgical intervention. We have discussed risks and complications as it relates to the procedure and postoperative period, including but not limited to those listed on the consent. All of their questions were answered, consent was reviewed and signed. There is no history of any bleeding disorders or anesthesia complications. We will proceed..?PFP Shave Excision w/ derma blade ? Location:??Left upper??back .6 - 1.0 cm ,??left nasolabial fold??1.1-2.0 cm ? Size: ?Prep:??Betadine used to prep site.?Consent:??The procedure was discussed, risks and complications explained and consent obtained.?Procedure:??Shave excision was performed, hemostasis was achieved and no complications.? Discharge Instructions:??Keep area moist with ointment and clean, follow up in seven days for pathology.?? Full-body skin check performed with my female cataloging assistant in the room Medical Decision Making: The patient does live by herself we opted to proceed with removal of both of these.?? She is not a??candidate for general anesthesia.?? If surgery was required for the next steps??I would recommend this be done under local??because of her multiple medical comorbidities. ??We will reevaluate in 3 weeks,??I am hopeful that we were able to may be clear of the left nasolabial fold??ulcerative lesion Assessment/Plan 1.??Skin lesion??L98.9 Problem List/Past Medical History Ongoing Achilles tendinitis, left leg Anemia Anxiety Aortic valve stenosis, nonrheumatic Arterial insufficiency, posterior tibial ASCVD (arteriosclerotic cardiovascular disease) Barretts esophagus Bradycardia CAD (coronary artery disease) CHF (congestive heart failure) CKD (chronic kidney disease) Contracture of left Achilles tendon Diabetes mellitus with neuropathy Diverticulosis Dysphagia Esophageal stricture GERD (gastroesophageal reflux disease) Heart failure with reduced ejection fraction Hyperlipemia Hypertension Left foot pain 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 Mitral valve disease Neuropathic pain Neuropathic pain of both feet Nocturnal leg cramps Nodule of kidney Non-healing skin lesion Non-insulin dependent type 2 diabetes mellitus KINGSLEY (obstructive sleep apnea) Posterior tibial tendinitis, left leg Right flank pain Skin lesion Tarsal tunnel syndrome of left side Tendinitis of ankle Historical Diverticulitis Procedure/Surgical History ???Cardiac catheter (02/07/2021)???ERCP (Endoscopic retrograde cholangiopancreatography) normal (01/17/2021) Medications aspirin 81 mg oral capsule, 81 mg= 1 cap, Oral, Daily atorvastatin Blood Glucose Monitor Kit, See instructions empagliflozin 10 mg oral tablet, 10 mg= 1 tab, Oral, Daily ezetimibe 10 mg oral tablet, 10 mg= 1 tab, Oral, Daily gabapentin 300 mg oral capsule, See Instructions isosorbide mononitrate 30 mg oral tablet, extended release, 30 mg= 1 tab, Oral, every morning lisinopril 2.5 mg oral tablet, 2.5 mg= 1 tab, Oral, BID Melatonin 3 mg oral tablet methylcellulose compounding powder metoprolol succinate 50 mg oral capsule, extended release, 50 mg= 1 cap, Oral, Daily nitroglycerin, 0.4 mg, Sublingual, every 5 min, PRN pantoprazole 40 mg oral delayed release tablet, 40 mg= 1 tab, Oral, Daily torsemide 10 mg oral tablet, 10 mg= 1 tab, Oral, Daily Voltaren 1% topical gel, 1 gemini, Topical, QID Allergies Pollen metoclopramide propoxyphene Social History Tobacco Never tobacco user Tobacco Use:. Electronically Signed on 09/07/23 11:12 AM Nhan Hagen, Patient Care team information Care Team Personnel Name: BECKI TURCIOS, CARISA Powers Position: No Access Member Role: Primary Care Physician Address: Address: [address] [place] [address] [place] [address]
--- OUTSIDE RECORDS SUMMARY | 2024-05-02 12:03 | XMS_ITS | Continuity of Care Document ---
Author Organization [facility] Address [address] [place] [id number] Care Team Providers Care Blade Grinder Name Role Phone LASHAE CASAS Primary Care Physician Encounter [facility] NBR [id number] Date(s): 11/04/23 - 11/04/23 [facility] [address] [place] [address]- [place] Discharge Disposition: Home f/u External Provider Attending Physician: Nhan Hagen DO Admitting Physician: Nhan Hagen DO Referring Physician: Nhan Hagen DO Allergies, Adverse Reactions, Alerts Substance Reaction Severity Status metoclopramide Unknown Active propoxyphene Unknown Active Pollen Unknown Active Assessment and Plan Future Appointments Diagnostic Tests Pending * Pathology Request 11/04/23 Functional Status 11/04/23 Family Member Travel History No recent t ravel Recent Travel History No recent travel Other exposure to Infectious Disease Non e Medications allopurinol 100 mg oral tablet 50 mg = 0.5 tab, Oral, Daily, 0 Refill(s) Start Date: 10/28/23 Status: Ordered aspirin 81 mg oral capsule 81 mg = 1 cap, Oral, Daily, 0 Refill(s) Start Date: 09/06/23 Status: Ordered atorvastatin 40 mg =, Oral, Daily, 0 Refill(s) Start Date: 09/06/23 Status: Ordered cephalexin 500 mg oral capsule 500 mg = 1 cap, Oral, every 12 hr, # 10 cap, 0 Refill(s), Pharmacy: [facility], 160, cm, 10/29/23 14:55:00 EST, Height, 75, kg, 10/29/23 15:00:00 EST, Weight Dosing Start Date: 11/04/23 Stop Date: 11/09/23 Status: Ordered empagliflozin 10 mg oral tablet 10 mg = 1 tab, Oral, Daily, 0 Refill(s) Start Date: 09/06/23 Status: Ordered ezetimibe 10 mg oral tablet 10 mg = 1 tab, Oral, Daily, 0 Refill(s) Start Date: 09/06/23 Status: Ordered gabapentin 300 mg oral capsule 5 caps, Oral, every night at bedtime, 0 Refill(s) Start Date: 09/06/23 Status: Ordered isosorbide mononitrate 30 mg oral tablet, extended release 30 mg = 1 tab, Oral, every morning, 0 Refill(s) Start Date: 09/06/23 Status: Ordered Lantus Solostar Pen 100 units/mL subcutaneous solution 11 units =, Subcutaneous, Daily, 0 Refill(s) Start Date: 10/28/23 Status: Ordered lisinopril 2.5 mg oral tablet 2.5 mg = 1 tab, Oral, BID, 0 Refill(s) Start Date: 09/06/23 Status: Ordered Melatonin 3 mg oral tablet 9 mg 3 tab, Oral, every night at bedtime, PRN as needed for insomnia, 0 Refill(s) Start Date: 09/06/23 Status: Ordered metoprolol succinate 50 mg oral capsule, extended release 50 mg = 1 cap, Oral, Daily, 0 Refill(s) Start Date: 09/06/23 Status: Ordered nitroglycerin 0.4 mg =, Sublingual, every 5 min, PRN as needed for chest pain, 0 Refill(s) Start Date: 09/06/23 Status: Ordered pantoprazole 40 mg oral delayed release tablet 40 mg = 1 tab, Oral, Daily, 0 Refill(s) Start Date: 09/06/23 Status: Ordered torsemide 10 mg oral tablet 10 mg = 1 tab, Oral, Daily, 0 Refill(s) Start Date: 09/06/23 Status: Ordered traMADol 50 mg oral tablet 50 mg = 1 tab, Oral, every 12 hr, PRN as needed for pain, 0 Refill(s) Start Date: 10/28/23 Status: Ordered Voltaren 1% topical gel 1 gemini, Topical, QID, PRN pain, 0 Refill(s) Start Date: 09/06/23 Status: Ordered Problem List Condition Confirmation Course Effective Dates Status H ealth Status Informant Achilles tendinitis, left leg Confirmed Active Anemia Confirmed Active Anxiety Confirmed Active Aortic valve stenosis, nonrheumatic Confirmed Active ASCVD (arteriosclerotic cardiovascular disease) Confirmed Active Barretts esophagus Confirmed Active BCC - Basal cell carcinoma of skin Confirmed Active Bradycardia Confirmed Active CKD (chronic kidney disease) Confirmed Active 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 Confirmed Active CHF (congestive heart failure) Confirmed Active Contracture of left Achilles tendon Confirmed Active CAD (coronary artery disease) Confirmed Active Nocturnal leg cramps Confirmed Active Diabetes mellitus with neuropathy Confirmed Active Diverticulosis Confirmed Active Left foot pain Confirmed Active Neuropathic pain of both feet Confirmed Active GERD (gastroesophageal reflux disease) Confirmed Active Heart failure with reduced ejection fraction Confirmed Active Hyperlipemia Confirmed Active Hypertension Confirmed Active Tarsal tunnel syndrome of left side Confirmed Active Mitral valve disease Confirmed Active SIMMONS - Nonalcoholic steatohepatitis Confirmed Active Neuropathic pain Confirmed Active NSTEMI - Non-ST segment elevation [place] Confirmed 02/08/21 Active KINGSLEY (obstructive sleep apnea) 1 Confirmed Active Arterial insufficiency, posterior tibial Confirmed Active PVD - peripheral vascular disease Confirmed Active Nodule of kidney Confirmed Active Restless legs Confirmed Active Right flank pain Confirmed Active Non-healing skin lesion Confirmed Active Skin lesion Confirmed Active Esophageal stricture Confirmed Active Tendinitis of ankle Confirmed Active Posterior tibial tendinitis, left leg Confirmed Active TIA - transient ischemic attack Confirmed Active Non-insulin dependent type 2 diabetes mellitus Confirmed Active 1no cpap at [facility] Procedures Procedure Date Related Diagnosis Body Site Status Basal Cell Excision Frozen Section 1 11/04/23 Completed Cardiac catheterization 2 02/06/21 Completed ERCP (Endoscopic retrograde cholangiopancreatography) normal 01/16/21 Completed Cholecystectomy Completed Colonoscopy Completed EA - Endometrial ablation Completed EGD - esophagogastroduodenoscopy Completed Hernia repair Completed Knee arthroplasty Complet ed Laparoscopic oophorectomy Completed Repair of Achilles tendon Completed 1auto-populated from documented surgical case 2x3 stents Results Laboratory List Name Date Glucose POCT 11/04/23 Glucose POCT 11/04/23 Most recent to oldest [Reference Range]: 1 2 Glucose POC 165 *NA* (11/04/23 11:40 AM) 165 *NA* (11/04/23 11:38 AM) Vital Signs Most recent to oldest [Reference Range]: 1 2 Temperature Temporal Artery [36-38 Deg C ] 36.3 Deg C (11/04/23 2:44 PM) 37.3 Deg C (11/04/23 10:56 AM) Temperature Temporal Artery (DegF) [97.3-100 Deg F] 97.34 Deg F (11/04/23 2:44 PM) 99.14 Deg F (11/04/23 10:56 AM) Heart Rate Monitored [60-100 bpm] 66 bpm (11/04/23 2:44 PM) 52 bpm *LOW* (11/04/23 10:56 AM) Respiratory Rate [12-24 br/min] 18 br/mi n (11/04/23 2:44 PM) 16 br/min (11/04/23 10:56 AM) Blood Pressure [90-140/60-90 mmHg] 141/9 7mmHg *HI* (11/04/23 2:44 PM) 128/55mmHg (11/04/23 10:56 AM) Mean Arterial Pressure, Cuff [70-110 mmH g] 79 mmHg (11/04/23 10:56 AM) Blood Pressure Location Left arm (11/04/23 2:44 PM) Left arm (11/04/23 10:56 AM) Blood Pressure Method Automatic (11/04/23 2:44 PM) Automatic (11/04/23 10:56 AM) Weight 75 kg (10/29/23 2:55 PM) Weight Dosing 75.000 kg (10/29/23 2:55 PM) Height 160 cm (10/29/23 2:55 PM) Social History Social History Type Response Tobacco Never tobacco user T obacco Use:. Sex Discharge instructions * Event Display: Discharge Instructions History and physical note * Event Display: History and Physical Update * Event Display: History and Physical Patient Care team information Care Team Personnel Name: LASHAE CASAS Position: No Access Member Role: Primary Care Physician Address: Address: [address] [place] [address]- Care Team Related Persons Name: KRISTIN JAMISON Name: AMBER LION
--- OUTSIDE RECORDS SUMMARY | 2024-05-02 12:03 | XMS_ITS | Continuity of Care Document ---
Author Organization [facility] Ambulatory Clinics Address [address] [place] [address] Care Team Providers Care Supervisory Cbp Officer Name Role Phone LASHAE CASAS Primary Care Physician Encounter [facility] NBR [id number] Date(s): 10/01/23 - 10/01/23 [facility] Ambulatory Clinics [address] [place] [address]- Encounter Diagnosis Basal cell carcinoma (BCC)(Discharge Diagnosis) - 09/30/23 Basal cell carcinoma (BCC) of upper back(Discharge Diagnosis) - 10/01/23 Discharge Disposition: Home or Self Care Attending Physician: Nhan Hagen DO Referring Physician: BECKI TURCIOS, CARISA Powers Allergies, Adverse Reactions, Alerts Substance Reaction Severity Status metoclopramide Unknown Active propoxyphene Unknown Active Pollen Unknown Active Medications aspirin 81 mg oral capsule 81 [...] obacco Use:. Sex Physician Outpatient Note * Gali [employer]: MODIFY Nhan Hagen, DO: PERFORM, MODIFY Nhan Hagen, DO: MODIFY Event Display: Office Clinic Note Physician Authored Date: [id number] ANNA LION I :1955 Age:68 years Sex:Female Visit Date:10/01/2023 Primary Care Physician: BECKI TURCIOS, CARISA Powers Chief Complaint pathology results History of Present Illness Established patient in the office for recheck of skin lesions. Patient had biopsies of the left upper back and left nasolabial fold on 09/06/2023. Patient has positive basal cell carcinoma of the left upper back and left nasolabial fold. Patient states that the area are healing well.?? She has multiple medical comorbidities with prior cardiac stents, she is off her blood thinner. Review of Systems Negative for: no new cardiac, respiratory, GI, , hematologic, neurologic, psychological, allergic, traumatic or endocrine problems except as listed above Physical Exam GENERAL APPEARANCE:??The patient is awake, [...] and intact. There is no proptosis or enophthalmos. ?NECK:??There is no palpable lymphadenopathy.?HEART:??regular rate and rhythm.?LUNGS:??clear to auscultation bilaterally, no wheezes/rhonchi/rales.?SKIN:??BCC+ of the left nasolabial fold and left upper??back with??signs of residual cancer at both sites ?MUSCULOSKELETAL:??normal gait and station.?? Procedure There was a full discussion of all treatment options including conservative management, second opinion and surgical intervention. The patient and or family has opted to proceed with surgical intervention. We have discussed risks and complications as it relates to the procedure and postoperative period, including but not limited to those listed on the consent. All of their questions were answered,consent was reviewed and signed. There is no history of any bleeding disorders or anesthesia complications. We will proceed under local due to her prior cardiac history Medical Decision Making: Biopsy sites??examined, treatment options reviewed after results were reviewed??and provided to thepatient,??she opted to proceed with??surgical removal Assessment/Plan 1.??Basal cell carcinoma (BCC)??C44.91 Discussed pathology results with the patient. She was understanding of the recommendation of proceeding with the OR, she would like to proceed. We would proceed with local only given her history of cardiac concern. She was agreeable and consent was signed today. We would proceed with getting her scheduled. She understands that surgery will be on a with pathology. Patient would otherwise follow up as needed prior to surgery. 2.??Basal cell carcinoma (BCC) of upper back??C44.519 Follow Up Instructions OR - excision BCC left nasolabial fold and left upper back with frozen section and recon. LOCAL ONLY Problem List/Past Medical History Ongoing Achilles tendinitis, [...] tobacco user Tobacco Use:. Electronically Signed on 10/01/23 11:18 AM Nhancole Hagen DO Patient Care team information Care Team Personnel Name: LASHAE CASAS Position: No Access Member Role: Primary Care Physician Address: Address: [address] [place] [id number] [place]
--- OUTSIDE RECORDS SUMMARY | 2024-05-02 12:03 | XMS_ITS | Clinical Summary ---
Author Organization [facility] Address [address] [place] [address] Care Team Providers Care Chute Tender Name Role Phone Unknown, Provider Unavailable [phone] Asia Gil DO Primary Care Provid er Allergies No known active allergies Medications No known medications Social History Tobacco Use Types Packs/Day Years Used Date Smoking Tobacco: Never Assessed Interpersonal Safety Answer Date Record ed Physically Hurt Never 01/28/2021 Verbally Threaten Not on file 01/28/2021 Sex and Gender Information Value Date Recorded Sex Assigned at Not on file Gender Identity Female 09/01/2023 8:32 EST Sexual Orientation Not on file Obstetrics History Last Filed Vital Signs Vital Sign Reading Time Taken Comments Blood Pressure 117/60 09/09/2023 1101 EST Pulse 55 09/09/2023 1101 EST Temperature 35.4 ??C (95.7 ??F) 09/09/2023 1101 EST Respiratory Rate 16 09/09/2023 1101 EST Oxygen Saturation 98% 09/09/2023 1101 EST Inhaled Oxygen Concentration - - Weight - - Height - - Body Mass Index - - Plan of Treatment Health Maintenance Due Date Last Done Comments Hepatitis C Screen 1955 RSV Immunization ( o r 60+ Years) (1 - 1-dose 60+ series) 2013 Fall Risk Screening 2018 COVID-19 Vaccine ( season) 2023 Care Teams Chute Tender Relationship Specialty Start Date End Date Asia Gil DO [address] [place] [address] PCP - General 09/01/23 Unknown, Provider, 09/23/09
--- OUTSIDE RECORDS SUMMARY | 2024-05-02 12:03 | XMS_ITS | Encounter Summary ---
Author Organization [facility] Address [address] [place] [address] Care Team Providers Care Java Security Architect Name Role Phone Unknown, Provider Unavailable Asia Gil DO Primary Care Provid er Encounter Details Date Type Department Care Team (Late st Contact Info) Description 11/04/2023 Lab Requisition [facility] Lab - Main [place] [address] [place] [id number] Nhan Hagen, DO [address] [place] [address] [address] [place] [address] Basal cell carcinoma of skin, unspecified Social History Tobacco Use Types Packs/Day Years Used Date Smoking Tobacco: Never Assessed Interpersonal Safety Answer Date Record ed Physically Hurt Never 01/28/2021 Verbally Threaten Not on file 01/28/2021 Sex and Gender Information Value Date Recorded Sex Assigned at Not on file Gender Identity Female 09/01/2023 8:32 EST Sexual Orientation Not on file documented as of this encounter Plan of Treatment Scheduled Orders Name Type Priority Associated Diagnoses Orde r Schedule SURGICAL PATHOLOGY Pathology Today Basal cell carcinoma of skin, unspecified Ordered: 11/04/2023 documented as of this encounter Visit Diagnoses Diagnosis Basal cell carcinoma of skin, unspecified documented in this encounter Care Teams Java Security Architect Relationship Specialty Start Date End Date Asia Gil DO [address] [place] [id number] PCP - General 09/01/23 Unknown, Provider, 09/23/09 documented as of this encounter
--- OUTSIDE RECORDS SUMMARY | 2024-05-02 12:03 | XMS_ITS | Continuity of Care Document ---
Author Organization [facility] Address [address] [place] [address] Care Team Providers Care Transmission Repairer Name Role Phone LASHAE CASAS Primary Care Physician Encounter [facility] NBR [id number] Date(s): 11/17/23 - 11/17/23 [facility] [address] [place], [place] [address] Encounter Diagnosis History of basal cell carcinoma (BCC)(Discharge Diagnosis) - 11/15/23 Visit for suture removal(Discharge Diagnosis) - 11/15/23 Discharge Disposition: Home or Self Care Attending Physician: SHARI Thompson Allergies, Adverse Reactions, Alerts Substance Reaction Severity Status metoclopramide Unknown Active propoxyphene Unknown Active Pollen Unknown Active Assessment and Plan Extracted from: Title:ENT Office Visit Note Author:SHARI Rosado Date:11/17/23 1.??History of basal cell ca rcinoma (BCC)??Z85.828 The patient has been seen today postoperatively for evaluation and suture removal. The incision site is healing well, there is no evidence of excessive scar contracture, dehiscence or purulence. I have recommended postoperative scar massage with either a cocoa butter lotion or [id number] scar massage lotions. Sutures were removed without complication, the patient tolerated the procedure well. ??Reviewed??ongoing??skin protection??and recommendation for recheck skin in 6 months. 2.??Visit for suture removal??Z48.02 Future Appointments Medications allopurinol 100 mg oral tablet 50 [...] failure with reduced ejection fraction Confirmed Active History of basal cell carcinoma (BCC) Confirmed Active Hyperlipemia Confirmed Active Hypertension Confirmed Active Tarsal tunnel syndrome of left side Confirmed Active Mitral valve disease Confirmed Active SIMMONS - Nonalcoholic steatohepatitis Confirmed Active Neuropathic pain Confirmed Active NSTEMI - Non-ST segment elevation MD Confirmed 02/08/21 Active KINGSLEY (obstructive sleep apnea) 1 Confirmed Active Arterial insufficiency, posterior tibial Confirmed Active PVD - peripheral vascular disease Confirmed Active Nodule of kidney Confirmed Active Restless legs Confirmed Active Right flank pain Confirmed Active Non-healing skin lesion Confirmed Active Skin lesion Confirmed Active Esophageal stricture Confirmed Active Visit for suture removal Confirmed Active Tendinitis of ankle Confirmed Active Posterior tibial tendinitis, left leg Confirmed Active TIA - transient ischemic attack Confirmed Active Non-insulin dependent type 2 diabetes mellitus Confirmed Active 1no cpap at [facility] Procedures Procedure Date Related Diagnosis Body Site Status Basal Cell Excision Frozen Section 1 11/04/23 Completed Cardiac catheterization 2 02/06/21 Completed ERCP (Endoscopic retrograde cholangiopancreatography) normal 01/16/21 Completed Cholecystectomy Completed Colonoscopy Completed EA - Endometrial ablation Completed EGD - esophagogastroduodenoscopy Completed Hernia repair Completed Knee arthroplasty Complet ed Laparoscopic oophorectomy Completed Repair of Achilles tendon Completed 1auto-populated from documented surgical case 2x3 stents Social History Social History Type Response Tobacco Never tobacco user T obacco Use:. Sex Physician Outpatient Note * SHARI Thompson: PERFORM SHARI Thompson: PERFORM, MODIFY SHARI Thompson: MODIFY, MODIFY SHARI Thompson: MODIFY Event Display: Office Clinic Note Physician Authored Date: [id number] ANNA LION I :1955 Age:68 years Sex:Female Visit Date:11/17/2023 Primary Care Physician: LASHAE CASAS Chief Complaint Established-post op skin History of Present Illness Established patient last seen in the OR on 11/04/23 for Excision of basal cell carcinoma left nasolabial fold and left upper back with frozen section and reconstruction. Only local was used for procedure. Patient is in the office today for post op visit and suture removal. Patient states that she has had no issues with the surgical sites. Patient has no other concerns today. Final pathology of both sites no residual basal cell carcinoma/negative margins. Review of Systems Negative for: no new [...] to place, oriented to time.?NEURO:??CN's II-XII grossly intact,?HEENT:??The patient is normocephalic with a normal facies?NECK:??There is no palpable lymphadenopathy.?HEART:??regular rate and rhythm.?LUNGS:??clear to auscultation bilaterally, no wheezes/rhonchi/rales.?SKIN:??Well-healing surgical sites of the left nasolabial fold and left upper back??without any evidence of dehiscence or infection. ? Assessment/Plan 1.??History of basal cell carcinoma (BCC)??Z85.828 The patient has been seen today postoperatively for evaluation and suture removal. The incision site is healing well, there is no evidence of excessive scar contracture, dehiscence or purulence. I have recommended postoperative scar massage with either a cocoa butter lotion or [id number] scarmassage lotions. Sutures were removed without complication, the patient tolerated the procedure well. ??Reviewed??ongoing??skin protection??and recommendation for recheck skin in 6 months. 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 Diverticulosis Esophageal stricture GERD (gastroesophageal reflux disease) Heart failure with reduced ejection fraction History of basal cell carcinoma (BCC) Hyperlipemia Hypertension Left foot pain 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 Mitral valve disease SIMMONS - Nonalcoholic steatohepatitis Neuropathic pain Neuropathic pain of both feet Nocturnal leg cramps Nodule of kidney Non-healing skin lesion Non-insulin dependent type 2 diabetes mellitus NSTEMI - Non-ST segment elevation MD KINGSLEY (obstructive sleep apnea) Posterior tibial tendinitis, left leg PVD - peripheral vascular disease Restless legs Right flank pain Skin lesion Tarsal tunnel syndrome of left side Tendinitis of ankle TIA - transient ischemic attack Visit for suture removal Historical Diverticulitis Dysphagia Procedure/Surgical History ???Basal Cell Excision Frozen Section (11/04/2023)???Cardiac catheterization (02/07/2021)???ERCP (Endoscopic retrograde cholangiopancreatography) normal (01/17/2021)???Cholecystectomy???Colonoscopy???EA - Endometrial ablation???EGD - esophagogastroduodenoscopy???Hernia repair???Knee arthroplasty???Laparoscopic oophorectomy???Repair of Achilles tendon Medications allopurinol 100 mg oral tablet, 50 mg= 0.5 tab, Oral, Daily aspirin 81 mg oral capsule, 81 mg= 1 cap, Oral, Daily atorvastatin, 40 mg, Oral, Daily cephalexin 500 mg oral capsule, 500 mg= 1 cap, Oral, every 12 hr empagliflozin 10 mg oral tablet, 10 mg= 1 tab, Oral, Daily ezetimibe 10 mg oral tablet, 10 mg= 1 tab, Oral, Daily gabapentin 300 mg oral capsule, 5 caps, Oral, every night at bedtime isosorbide mononitrate 30 mg oral tablet, extended release, 30 mg= 1 tab, Oral, every morning Lantus Solostar Pen 100 units/mL subcutaneous solution, 11 units, Subcutaneous, Daily lisinopril 2.5 mg oral tablet, 2.5 mg= 1 tab, Oral, BID Melatonin 3 mg oral tablet, 9 mg= 3 tab, Oral, every night at bedtime, PRN metoprolol succinate 50 mg oral capsule, extended release, 50 mg= 1 cap, Oral, Daily nitroglycerin, 0.4 mg, Sublingual, every 5 min, PRN pantoprazole 40 mg oral delayed release tablet, 40 mg= 1 tab, Oral, Daily torsemide 10 mg oral tablet, 10 mg= 1 tab, Oral, Daily traMADol 50 mg oral tablet, 50 mg= 1 tab, Oral, every 12 hr, PRN Voltaren 1% topical gel, 1 gemini, Topical, QID, PRN Allergies Pollen metoclopramide propoxyphene Social History Alcohol Past Electronic Cigarette/Vaping Electronic Cigarette Use: Never. Substance Use Never Tobacco Never tobacco user Tobacco Use:. Electronically Signed on 11/17/23 09:23 AM SHARI Thompson Patient Care team information Care Team Personnel Name: LASHAE CASAS Position: No Access Member Role: Primary Care Physician Address: Address: [address] [place] [id number]- Care Team Related Persons Name: KRISTIN JAMISON Name: AMBER LION
--- OUTSIDE RECORDS SUMMARY | 2024-05-02 12:03 | XMS_ITS | Encounter Summary ---
Author Organization [facility] Address [address] [place] [address] Care Team Providers Care Weigher And Crusher Name Role Phone Unknown, Provider Unavailable Asia Gil DO Primary Care Provid er Reason for Visit * Reason Comments Pain Left ankle * Consult (Routine) - Authorization Not Required Specialty Diagnoses / Procedures [facility] To Contact Pain Medicine Diagnoses Tarsal tunnel syndrome, left lower limb Unspecified mononeuropathy of bilateral lower limbs Tawny Grullon MD [address] [place] [address] [facility] [address] [place] [address] Referral ID Status Reason Start Date Expiration Date Visits Requested Visits Authorized [id number] Authorization Not Required 1 1 Encounter Details Date Type Department Care Team (Latest Contact Info) Description 09/09/2023 11:00 EST Initial consult [facility] Interventional Pain [address] [place] [address] Imer Li MBBS [address] [facility] [address] [place] [address] Neuralgia (Primary Dx) Social History Tobacco Use Types Packs/Day Years Used Date Smoking Tobacco: Never Assessed Interpersonal Safety Answer Date Record ed Physically Hurt Never 01/28/2021 Verbally Threaten Not on file 01/28/2021 Sex and Gender Information Value Date Recorded Sex Assigned at Not on file Gender Identity Female 09/01/2023 8:32 EST Sexual Orientation Not on file documented as of this encounter Last Filed Vital Signs Vital Sign Reading Time Taken Comments Blood Pressure 117/60 09/09/2023 1101 EST Pulse 55 09/09/2023 1101 EST Temperature 35.4 ??C (95.7 ??F) 09/09/2023 1101 EST Respiratory Rate 16 09/09/2023 1101 EST Oxygen Saturation 98% 09/09/2023 1101 EST Inhaled Oxygen Concentration - - Weight - - Height - - Body Mass Index - - documented in this encounter Progress Notes * Imer Li MBBS - 09/09/2023 1100 EST [facility] OP PAIN CONSULT Patient Name: Toyin Coley Date of Service: 09/09/2023 Chief Complaint: Chief Complaint Patient presents with ??? Pain Left ankle Physician Requesting Consultation: Tawny Grullon Toyin Coley is a pleasant 68 y.o. year old female, who has no past medical history on file. whopresents with moderate left foot pain since the distribution of posterior tibial nerve last 1 year(s) with no initiating event. Patient has a history of Achilles tendon repair done 20 years ago and was having some pain in the same area intermittently. But the pain on the medial anterior, and plantar side of the foot is new and started 1 year ago. The pain is frequent and is described as sharp and throbbing in character and radiates to posteriorcalf. The current pain intensity is 3/10 at rest, increasing to 10/10 with activity. Pain increaseswith putting pressure on her foot, in the nighttime and walking for an extended period of time and is decreased with none. she reports that performing activities of daily living is difficult. Patient endorses numbness/tingling in the same distribution but denies weakness. Denies bowel or bladder changes including retention and incontinence, and denies saddle anesthesia. Denies fever/chills, weight loss, history of trauma, cancer, and IV drug abuse. Patient has tried: PT- did not help Has not tried acupuncture, chiropractor. Previous Nerve Block or Injection: Patient has had injections in the posterior tibial tendon several times with podiatry with each injection lasting 1 to 2 days Medications tried: Tylenol 500 mg 2 tablets every 4 hours Gabapentin 300 mg in the morning, 300 mg in the afternoon and 900 mg in the nighttime Topical lidocaine-intermittently helps Please see Pain Medicine Center Initial Assessment Questionnaire in scan media for more details. Allergies: No Known Allergies Current Medications: No current outpatient medications on file. No current facility-administered medications for this visit. Past Medical HX: History reviewed. No pertinent past medical history. Past Surgical HX: History reviewed. No pertinent surgical history. Past Social HX: Social History Socioeconomic History ??? Marital status: Spouse name: Not on file ??? Number of children: Not on file ??? Years of education: Not on file ??? Highest education level: Not on file Occupational History ??? Not on file Tobacco Use ??? Smoking status: Not on file ??? Smokeless tobacco: Not on file Substance and Sexual Activity ??? Alcohol use: Not on file ??? Drug use: Not on file ??? Sexual activity: Not on file Other Topics Concern ??? Not on file Social History Narrative ??? Not on file Social Determinants of Health Financial Resource Strain: Not on file Food Insecurity: Not on file Transportation Needs: Not on file Physical Activity: Not on file Stress: Not on file Social Connections: Not on file Housing Stability: Not on file Family HX: Patient denies any family history of chronic pain, immunological or genetic syndromes that is contributory to the patient's current symptoms. Review of Systems: A 12 point review of system was performed and reviewed. P Constitutional: Negative for weight change, fever and chills. Cardiovascular: Negative for chest pain, palpitations and syncope. Respiratory: Negative for cough, hemoptysis and wheeze. GI: Negative for nausea, vomiting and abdominal pain. Musculoskeletal: Positive for arthralgias and myalgias. As per HPI Genitourinary: Negative for hematuria, dysuria and urin. incontinence. Integumentary: Negative for rash, ulcers and skin changes. Neurological: Negative for convulsions, vertigo and tremor. As per HPI Hem/Lymph: Negative for easy bleeding, lymphadenopathy. Psychiatric: Negative for depressed mood, anxiety and suicidal ideation. Physical Exam: Patient is well developed, well nourished in no acute distress Alert and oriented X3 Eyes:PERRL Respirtory:nonlabored Cardiac:RRR Vascular: Peripheral pulses intact. No edema in b/l LE. No cyanosis Musculoskeletal: Gait: normal, Tandem Gait: normal Heel walking: Normal, Toe walking: Normal No pain on facet loading bilaterally SLR Test - Bilaterally Lower Ext Power: L2 hip flex 5/5 bilaterally L3 knee ext 5/5 bilaterally L4 foot dorsiflex 5/5 bilaterally L5 hallux dosrsiflex 5/5 bilaterally S1 hallux plantar flex 5/5 bilaterally Sensation to light touch: Normal Skin:Skin color, texture, turgor normal. No rashes or lesions in the four extremities and back. Psychiatric:normal affect Imaging: None on file Assessment: 1. Neuralgia Plan: Ms. Toyin Coley is a 68 y.o. 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 Given the patient's symptomatology, physical exam findings and imaging results, we feel that the patient would most likely benefit from consultation with Ortho specialist for possible surgical management of tarsal tunnel syndrome. If no management is offered for that condition we can possibly consider posterior tibial nerve peripheral nerve stimulator with SPR .all risks, benefits, and alternatives were thoroughly explained to Ms. Toyin Coley who verbally communicated understanding and agreed with the management plan. Recent imaging as above Impression: 1. Neuralgia Plan ?? Encouraged physical therapy, referral provided ?? F/u with gabapentin as scheduled ?? To consider posterior tibial nerve Sprint PNS under ultrasound in future once the Ortho specialist has evaluated the patient for tarsal tunnel syndrome. Treatment. Risks/benefits/alternatives discussed. Questions answered. ?? Instructed patient to maintain pain diary to monitor pain level, mobility, and function. We discussed possible treatment options, including physical therapy, adjuvant medications and interventional management. The patient wished to proceed with intervention. I had a detailed discussion with the patient regarding the risks of long-term high doseTylenol use,including the potential for medication side effects including liver dysfunction and failure among others. This note was dictated using voice recognition software. Imer CASTRO 09/10/2023 10:14 documented in this encounter Plan of Treatment Not on file documented as of this encounter Visit Diagnoses Diagnosis Neuralgia- Primary Neuralgia, neuritis, and radiculitis, unspecified documented in this encounter Care Teams Weigher And Crusher Relationship Specialty Start Date End Date Asia Gil DO [address] [place] [address] PCP - General 09/01/23 Unknown, Provider, 09/23/09 documented as of this encounter
--- OUTSIDE RECORDS SUMMARY | 2024-05-02 12:03 | XMS_ITS | Encounter Summary ---
Author Organization [facility] Address [address] [place] [address] Care Team Providers Care Procurement Internship Name Role Phone Unknown, Provider Unavailable Asia Gil DO Primary Care Provid er Encounter Details Date Type Department Care Team (Late st Contact Info) Description 09/08/2023 Lab Requisition [facility] Pathology & Laboratory Medicine - [facility] [address] [place] [address] Nhan Hagen, [address] [place], [place] [id number] Disorder of the skin and subcutaneous tissue, unspecified Social History Tobacco Use Types Packs/Day Years Used Date Smoking Tobacco: Never Assessed Interpersonal Safety Answer Date Record ed Physically Hurt Never 01/28/2021 Verbally Threaten Not on file 01/28/2021 Sex and Gender Information Value Date Recorded Sex Assigned at Not on file Gender Identity Female 09/01/2023 8:32 EST Sexual Orientation Not on file documented as of this encounter Plan of Treatment Not on file documented as of this encounter Procedures Procedure Name Priority Date/Time Associated Diagnosis Comments SURGICAL PATHOLOGY Today 09/07/2023 11 :00 EST Disorder of the skin and subcutaneous tissue, unspecified documented in this encounter Results * SURGICAL PATHOLOGY (09/07/2023 11:00 EST) Note to Patient The following pathology results have been interpreted by your pathologist and may be available to you before your health provider has had the opportunity to review them. Please allow time for your provider to receive these results and explore management options, if applicable. 09/09/2023 10:00 [facility] Final Diagnosis A. SKIN OF NASOLABIAL FOLD, LEFT, SHAVE BIOPSY: - Basal cell carcinoma, nodular type, involving the biopsy base and peripheral edge. B. SKIN OF BACK, LEFT UPPER, SHAVE BIOPSY: - Basal cell carcinoma, superficial multifocal type, involving the biopsy base and peripheral edge. 09/09/2023 10:00 [facility] Attestation By the signature below, the attending physician certifies that they have 1) personally conducted a gross and/or microscopic examination of the described specimen(s), and/or personally interpreted the results of laboratory testing of the described specimen(s), and 2) personally rendered or confirmed the above diagnosis. 09/09/2023 10:00 [facility] at 1000 Clinical History Clinical diagnosis code: L98.9 09/09/2023 10:00 [facility] Gross Description A. Received in formalin labelled with proper patient identification (initials P, L) and left nasolabial fold is a wellington-white skin shave biopsy measuring 1.5 x 1.1 x 0.1 cm. At 1 edge of the specimen is an irregularly pigmented wellington-white to wellington-pink and wellington-brown macule measuring 1.0 cm in diameter. Inked, serially sectioned and A1-A4. B. Received in formalin labelled with proper patient identification (initials P, L) and left upper back is a wellington-white skin shave biopsy of a plaque measuring 1.2 x 1.1 x 0.1 cm. Inked, serially sectioned and submitted entirely in B1-B2. SHARI ORELLANA(ASCP) 09/08/2023 18:39 09/09/2023 10:00 [facility] Performing Lab [facility] 09/09/2023 10:00 [facility] Scanned Images 09/09/2023 10:00 EST [facility] Tissue SPECIMEN FROM SKIN / Unknown 09/07/2023 11:00 EST 09/08/2023 17:11 EST Tissue specimen (specimen) SPECIMEN FROM SKIN / Unknown 09/07/2023 11:00 EST 09/08/2023 17:11 EST Nhan Hagen DO PATHOLOGY ORDER MÓNICA [facility] [address] [place] [address] documented in this encounter Visit Diagnoses Diagnosis Disorder of the skin and subcutaneous tissue, unspecified documented in this encounter Care Teams Procurement Internship Relationship Specialty Start Date End Date Asia Gil DO [address] [place] [address] PCP - General 09/01/23 Unknown, Provider, 09/23/09 documented as of this encounter
--- OUTSIDE RECORDS SUMMARY | 2024-05-02 12:03 | XMS_ITS | Referral Summary ---
Author Organization [facility] Address [address] [place] [address] Care Team Providers Care Director Business Travel Name Role Phone Unknown, Provider Unavailable [phone] Asia Gil DO Primary Care Provid er [...] 8:32 EST Sexual Orientation Not on file Last Filed Vital Signs Vital Sign Reading Time Taken Comments Blood Pressure 117/60 09/09/2023 1101 EST Pulse 55 09/09/2023 1101 EST Temperature 35.4 ??C (95.7 ??F) 09/09/2023 1101 EST Respiratory Rate 16 09/09/2023 1101 EST Oxygen Saturation 98% 09/09/2023 1101 EST Inhaled Oxygen Concentration - - Weight - - Height - - Body Mass Index - - Plan of Treatment Not on file Care Teams Director Business Travel Relationship Specialty Start Date End Date Asia Gil DO [address] [place] [address] PCP - General 09/01/23 Unknown, Provider, 09/23/09
--- OUTSIDE RECORDS SUMMARY | 2024-05-02 12:03 | XMS_ITS | Continuity of Care Document ---
Author Organization [facility] Address [address] [place] [address] Care Team Providers Care On Site Nurse Name Role Phone LASHAE CASAS Primary Care Physician Encounter [facility] NBR [id number] Date(s): 10/15/23 - 10/15/23 [facility] [address] [place], [place] [address] Discharge Disposition: Home Allergies, Adverse Reactions, Alerts Substance Reaction Severity [...] Never tobacco user T obacco Use:. Sex Patient Care team information Care Team Personnel Name: LASHAE CASAS Position: No Access Member Role: Primary Care Physician Address: Address: [address] [place] [address]
--- OUTSIDE RECORDS SUMMARY | 2024-05-02 12:03 | XMS_ITS | Encounter Summary ---
Author Organization [facility] Address [address] [place] [address] Care Team Providers Care Crew Supervisor Name Role Phone Unknown, Provider Unavailable Asia Gil DO Primary Care Provid er Encounter Details Date Type Department Care Team (Late st Contact Info) Description 11/05/2023 Lab Requisition [facility] [place] [address] [place] [address] Nhan Hagen, [address] [place] [address] Basal cell carcinoma of skin, [...] Date/Time Associated Diagnosis Comments SURGICAL PATHOLOGY Today 11/04/2023 13 :09 EST Basal cell carcinoma of skin, unspecified documented in this encounter Results * SURGICAL PATHOLOGY (11/04/2023 13:09 EST) Note to Patient The following pathology results have been interpreted by your pathologist and may be available to you before your health provider has had the opportunity to review them. Please allow time for your provider to receive these results and explore management options, if applicable. 11/10/2023 17:19 [facility] Final Diagnosis A. SKIN OF BACK, LEFT UPPER, INFERIOR MARGIN, EXCISION: - Negative for malignancy. B. SKIN OF BACK, LEFT UPPER, SUPERIOR MARGIN, EXCISION: - Negative for malignancy. C. SKIN OF NASOLABIAL FOLD, LEFT, ELLIPSE EXCISION: - Benign skin with dermal scar. - Negative for residual malignancy. D. SKIN OF BACK, LEFT UPPER, 3 O'CLOCK DOG EAR, EXCISION: - Negative for malignancy. E. SKIN OF BACK, LEFT UPPER, 9 O'CLOCK DOG EAR, EXCISION: - Negative for malignancy. F. SKIN OF BACK, LEFT UPPER, TUMOR, EXCISION: - Benign skin with dermal scar. - Negative for residual malignancy. 11/10/2023 17:19 [facility] Diagnosis Comment Deeper level tissue sections were examined on blocks D5 and F4. 11/10/2023 17:19 [facility] Attestation By the signature below, the attending physician certifies that they have 1) personally conducted a gross and/or microscopic examination of the described specimen(s), and/or personally interpreted the results of laboratory testing of the described specimen(s), and 2) personally rendered or confirmed the above diagnosis. 11/10/2023 17:19 [facility] at 1719 Intraoperative Consultation A. SKIN OF BACK, LEFT UPPER, INFERIOR MARGIN (EN FACE), FROZEN SECTION: -FSA1: negative for malignancy. The above frozen section was performed and evaluated by Elaine Whelan MD, Ph.D at [facility] on November 04, 2023. The above diagnosis was called with read back confirmation to Dr. Nhan Hagen at 1350 hours. The specimen was received at 1322 hours. The frozen section slide stain quality is acceptable for evaluation. B. SKIN OF BACK, LEFT UPPER, SUPERIOR MARGIN (EN FACE), FROZEN SECTION: -FSB1: Negative for malignancy. The above frozen section was performed and evaluated by Elaine Whelan MD, Ph.D at [facility] on November 04, 2023. The above diagnosis was called with read back confirmation to Dr. Nhan Hagen at 1350 hours. The specimen was received at 1322 hours. The frozen section slide stain quality is acceptable for evaluation. C. SKIN OF NASAL LABIAL FOLD, LEFT, FROZEN SECTION: -FSC1: 3 o'clock and 9 o'clock tips en face (levels 1+ 6): tips uninvolved by tumor. -FSC2: levels 2, 3, 4, 5: margins uninvolved by tumor. The above frozen section was performed and evaluated by Elaine Whelan MD, Ph.D at [facility] on November 04, 2023. The above diagnosis was called with read back confirmation to Dr. Nhan Hagen at 1432 hours. The specimen was received at 1405 hours. The frozen section slide stain quality is acceptable for evaluation. 11/10/2023 17:19 [facility] Clinical History Basal cell carcinoma. 11/10/2023 17:19 [facility] Gross Description A. Received fresh with, Toyin I Coley and, inferior sliver left upper back, new margin inked purple and consists of a sliver of skin with a purple surface designating new margin; measuring 2.0 cm in length x 0.2 cm in thickness, excised to a depth of 0.5 cm. The specimen is entirely submitted intact in en face as FSA 1 for frozen sectioned with the interpretation as rendered above. Specimen of B. Received fresh with, Toyin I Coley and, superior sliver left upper back, new margin inked purple and consists of a sliver of skin with a purple surface designating new margin; measuring 2.2 cm in length x 0.2 cm in thickness, excised to a depth of 0.7 cm. The specimen is entirely submitted intact and en face as FS B1 for frozen section with the interpretation as rendered above. C. Received fresh with, Toyin I Coley and, basal cell carcinoma left nasolabial fold and consists of an elliptical excision of wellington skin with the following attached orienting sutures: white= 3 o'clock, blue= 6 o'clock, black = 9 o'clock; measuring 0.8 cm 12-6 o'clock x 2.1 cm 9-3 o'clock and excised to a depth of 0.3 cm. The 9-12-3 o'clock margin is inked blue, the 3-6-9 o'clock margin green, the deep margin orange. The specimen is serially sectioned from 3 o'clock to 9 o'clock and submitted as FSC1 through FSC2 for frozen sectioned with the interpretation as rendered above. Block yi: C1: 3 o'clock tip, en face, portion of FSC1 control C2-C5: Consecutive central sections, FSC2 controls C6: 9 o'clock tip, en face, portion of FSC1 control Elaine Whelan MD, Ph.D 11/04/2023 D. Received in formalin with, Toyin Leslie Coley and, 3 o'clock dog ear left upper back and consists of a 2.8 x 2.5 cm triangular excision of skin excised to a depth of 1.1 cm. The 2 o'clock half is inked blue, 4 o'clock half is inked black, and old resection margin is inked orange for orientation purposes only. The specimen is serially sectioned and entirely submitted from 3 o'clock towards old margin in D1-D5 (3 o'clock tip reverse en face in D1). E. Received in formalin with, Toyin I Coley and, 9 o'clock dog ear left upper back and consists of a 2.9 x 2.3 cm triangular excision of skin excised to a depth 0.8 cm. The 10 o'clock half is inked blue, 8 o'clock half inked black, and old resection margin inked orange for orientation purposes only. The specimen is serially sectioned and entirely submitted from 9 o'clock towards old margin in E1-E5 (9 o'clock tip reverse en face in E1). F. Received in formalin with, Toyin I Coley and, tumor left upper back and consists of an ovoid excision of skin, 2.0 x 2.0 cm excised to a depth 1.1 cm. The specimen is received with 3 undesignated sutures, which are arbitrarily designated per gross photographs as follows: Blue-12 o'clock, white-3 o'clock, black-9 o'clock. The specimen is inked as follows: 12 o'clock-3 o'clock: blue, 3 o'clock-6 o'clock: orange, 6 o'clock-9 o'clock: green, 9 o'clock-12 o'clock: yellow, deep: black. There is a 0.9 x 0.6 x 0.1 cm pale wellington-white lesion which is 0.5 cm from the nearest peripheral margin (6 o'clock) and 1.0 cm from the deep margin. The specimen is entirely submitted as follows: F1: 12 o'clock and 6 o'clock ends, reverse en face F2-F4: Mid sections, from 12 towards 6 o'clock As received: Arbitrary ink and designations: SHARI BULLARD(ASCP) 11/05/2023 10:44 11/10/2023 17:19 EST [facility] Performing Lab [facility] 11/10/2023 17:19 EST [facility] Scanned Images 11/10/2023 17:19 EST [facility] Tissue SPECIMEN FROM SKIN / Unknown 11/04/2023 13:09 EST 11/05/2023 9:20 EST Tissue specimen (specimen) SPECIMEN FROM SKIN / Unknown 11/04/2023 13:10 EST 11/05/2023 9:20 EST Tissue specimen (specimen) SPECIMEN FROM SKIN / Unknown 11/04/2023 13:54 EST 11/05/2023 9:20 EST Tissue specimen (specimen) SPECIMEN FROM SKIN / Unknown 11/04/2023 14:13 EST 11/05/2023 9:20 EST Tissue specimen (specimen) SPECIMEN FROM SKIN / Unknown 11/04/2023 14:13 EST 11/05/2023 9:20 EST Tissue specimen (specimen) SPECIMEN FROM SKIN / Unknown 11/04/2023 14:16 EST 11/05/2023 9:20 EST Nhan Hagen DO PATHOLOGY ORDER MÓNICA [facility] [address] [place] [address] documented in this encounter Visit Diagnoses Diagnosis Basal cell carcinoma of skin, unspecified documented in this encounter Care Teams Crew Supervisor Relationship Specialty Start Date End Date Asia Gil DO [address] [place] [address] PCP - General 09/01/23 Unknown, Provider, 09/23/09 documented as of this encounter
--- OUTSIDE RECORDS SUMMARY | 2024-05-02 12:03 | XMS_ITS | Encounter Summary ---
Author Organization [facility] Address [address] [place] [address] Care Team Providers Care Dairy Equipment Specialist Name Role Phone Mauro Phelps MD Primary Care Provider [phone] Unknown, Provider MD Unavailable Asia Gil DO Primary Care Provid er Encounter Details Date Type Department Care Team (Late st Contact Info) Description 08/28/2022 Lab Requisition [facility] Pathology & Laboratory Medicine - [facility] [address] [place] [address] Outr Resulting Lab, Provider Social History Tobacco Use Types Packs/Day Years [...] Procedure Name Priority Date/Time Associated Diagnosis Comments HOLD SST Today 08/28/2022 10:10 EST HOLD SST Today 08/28/2022 10:10 EST LYME AB Today 08/28/2022 10:10 EST RHEUMATOID FACTOR Today 08/28/2022 10: 10 EST HIGH SENSITIVITY C-REACTIVE PROTEIN (CARDIOVASCULAR DISEASE) Today 08/28/2022 10:10 EST documented in this encounter Results * HOLD SST (08/28/2022 10:10 EST) Hold Hold 08/28/2022 19:[address] [facility] Blood VENOUS BLOOD / Unknown 08/28/2022 10:10 EST 08/28/2022 18:20 EST Provider Outr Resulting Lab LAB INFO SER VICE AND SUPPORT & PHONE RESULT Performing Organization Address [facility] Co de Phone Number [facility] [address] [place] [address] * HOLD SST (08/28/2022 10:10 EST) Hold Hold 08/28/2022 19:[address] [facility] Blood VENOUS BLOOD / Unknown 08/28/2022 10:10 EST 08/28/2022 18:20 EST Provider Outr Resulting Lab LAB INFO SER VICE AND SUPPORT & PHONE RESULT Performing Organization Address [facility] Co de Phone Number [facility] [address] [place] [address] * LYME AB (08/28/2022 10:10 EST) Pathologist [facility] Lyme Ab Negative Negative 08/31/2022 11:[address] [facility] Blood VENOUS BLOOD / Unknown 08/28/2022 10:10 EST 08/28/2022 18:20 EST Provider Outr Resulting Lab IMMUNOLOGY A ND SEROLOGY ORDERABLES Performing Organization Address [facility] Co de Phone Number [facility] [address] [place] [address] * RHEUMATOID FACTOR (08/28/2022 10:10 EST) Pathologist [facility] Rheumatoid Factor <8.6 <12.0 IU/mL 08/28/2022 19:[address] [facility] Blood VENOUS BLOOD / Unknown 08/28/2022 10:10 EST 08/28/2022 18:20 EST Provider Outr Resulting Lab CHEMISTRY & BLOOD GAS ORDERABLES Performing Organization Address [facility] de Phone Number [facility] [address] [place] [address] * HIGH SENSITIVITY C-REACTIVE PROTEIN (CARDIOVASCULAR DISEASE) (08/28/2022 10:10 EST) [facility] High Sensitivity CRP 0.58 See Note mg/L 08/28/2022 19:[address] [facility] Comment: Reference Range: ??Low Risk: ? <1.0 mg/L ??Average Risk: ?? 1.0 - 3.0 mg/L ??High Risk: ?>3.0 mg/L ??Indeterminate*: >10.0 mg/L ??*May be an indication of another source of inflammation or infection Blood VENOUS BLOOD / Unknown 08/28/2022 10:10 EST 08/28/2022 18:20 EST Provider Outr Resulting Lab CHEMISTRY & BLOOD GAS ORDERABLES Performing Organization Address [facility] Co de Phone Number [facility] [address] [place] [address] documented in this encounter Visit Diagnoses Not on filedocumented in this encounter Care Teams Dairy Equipment Specialist Relationship Specialty Start Date End Date Mauro Phelps MD PCP - General 03/23/16 08/31/23 Asia Gil DO [address] [place] [address] PCP - General 09/01/23 Melody, MD Primitivo 09/23/09 documented as of this encounter
--- OUTSIDE RECORDS SUMMARY | 2024-05-02 12:04 | XMS_ITS | Encounter Summary ---
Author Organization [facility] Address [address] [place] [address] Care Team Providers Care Editor Trade Journal Name Role Phone Mauro Phelps MD Primary Care Provider [phone] Unknown, Provider MD Unavailable [phone] Asia Gil DO Primary Care Provid er Encounter Details Date Type Department Care Team (Late st Contact Info) Description 04/04/2020 Lab Requisition [facility] Pathology & Laboratory Medicine - [facility] [address] [place] [address] Outr Resulting Lab, Provider Social History Tobacco Use Types Packs/Day Years Used Date Smoking Tobacco: Never Assessed Sex and Gender Information Value Date Recorded Sex Assigned at Not on file Gender Identity Female 09/01/2023 8:32 EST Sexual Orientation Not on file documented as of this encounter Plan of Treatment Not on file documented as of this encounter Procedures Procedure Name Priority Date/Time Associated Diagnosis Comments OSMOLALITY Routine 04/04/2020 6:00 EDT documented in this encounter Results * (ABNORMAL) OSMOLALITY (04/04/2020 6:00 EDT) Osmolality, Serum 298(H) 275 - 295 mOsm/kg 04/04/2020 22:10 EDT [facility] Blood VENOUS BLOOD / Unknown 04/04/2020 6:00 EDT 04/04/2020 21:47 EDT Provider Outr Resulting Lab CHEMISTRY & BLOOD GAS ORDERABLES [facility] [address] [place] [address] documented in this encounter Visit Diagnoses Not on filedocumented in this encounter Care Teams Editor Trade Journal Relationship Specialty Start Date End Date Mauro Phelps MD PCP - General 03/23/16 08/31/23 Asia Gil DO [address] [place] [id number] PCP - General 09/01/23 Unknown, Provider, 09/23/09 documented as of this encounter
--- OUTSIDE RECORDS SUMMARY | 2024-05-02 12:04 | XMS_ITS | Encounter Summary ---
Author Organization [facility] Address [address] [place] [address] Care Team Providers Care Mix House Operator Name Role Phone Mauro Phelps MD Primary Care Provider [phone] Unknown, Provider Unavailable Encounter Details Date Type Department Care Team (Latest Contact Info) Description 01/28/2021 Travel Social History Tobacco Use Types Packs/Day Years Used Date Smoking Tobacco: Never Assessed Interpersonal Safety Answer Date Record ed Physically Hurt Never 01/28/2021 Verbally Threaten Not on file 01/28/2021 Sex and Gender Information Value Date Recorded Sex Assigned at Not on file Gender Identity Female 09/01/2023 8:32 EST Sexual Orientation Not on file COVID-19 Exposure Response Date Recorded In the last month, have you been in contact with someone who was confirmed or suspected to have Coronavirus / COVID-19? No / Unsure 01/28/2021 16:26 EDT documented as of this encounter Plan of Treatment Not on file documented as of this encounter Visit Diagnoses Not on filedocumented in this encounter Care Teams Mix House Operator Relationship Specialty Start Date End Date Mauro Phelps MD PCP - General 03/23/16 08/31/23 Unknown, Provider, 09/23/09 documented as of this encounter
--- OUTSIDE RECORDS SUMMARY | 2024-05-02 12:04 | XMS_ITS | Encounter Summary ---
Author Organization [facility] Address [address] [place] [address] Care Team Providers Care Water Superintendent Name Role Phone Unknown, Provider MD Primary Care Provider [phone] Unknown, Provider Primary Care Provider [phone] Unknown, Provider MD Unavailable Encounter Details Date Type Department Care Team (Late st Contact Info) Description 12/02/2001 Results Only [facility] conversion [address] [place] [address] Rita Fowler MD [address] [place] [address] [place] [address] Social History Tobacco Use Types Packs/Day Years Used Date Smoking Tobacco: Never Assessed Sex and Gender Information Value Date Recorded Sex Assigned at Not on file Gender Identity Female 09/01/2023 8:32 EST Sexual Orientation Not on file documented as of this encounter Plan of Treatment Not on file documented as of this encounter Procedures Procedure Name Priority Date/Time Associated Diagnosis Comments SURGICAL PATHOLOGY Routine 12/02/2001 0:00 EST documented in this encounter Results * SURGICAL PATHOLOGY (12/02/2001 0:00 EST) Pathology Report: SURGICAL PATHOLOGY REPORT Reports generated via electronic interface contain original data; however they are lacking the format of the original report. Caution should be taken when reading/interpreti ng unformatted reports. Name: ? ANNA DEWEY I ? Accession #: ? [id number] ? : ? 1955 (Age: 46) ??F ? Collect Date: ? 12/02/2001 ? Location: ? [facility] ? Receive Date: ? 12/02/2001 ? Provider: RITA FOWLER MD Copy to: YVETTE WYLIE MD ? Final Pathologic Diagnosis: ? Fallopian tube, left, salpingectomy: - Portion on fallopian tube with benign paratubal cyst. Document reviewed and electronically signed by: Sukh Li MD Report ??Date: 12/06/2001 16:35 By the signature above, the attending physician certifies that he/she has personally conducted a gross and/or microscopic examination of the described specimens and rendered or confirmed the above diagnosis. Specimen(s) Received: ? Lt tubal cyst Clinical History: ? Pelvic pain, persistent ovarian cyst on U/S Gross Description: ? Received in formalin labelled Lee and left tubal cyst is a portion of distal fallopian tube which is uninterrupted and measures 4.8 cm in length by 0.5 cm in average diameter. ??A smooth, deflated, pink-white, uniloculate cyst with multiple, fibrous adhesions to the proximal portion of tube, is also identified. ??The cyst measures approximately 3.0 cm in maximum, deflated dimension. ??Legal Manager sections are submitted in one cassette. ??(Dr. Buchanan)/dtl End of Report [facility] 12/02/2001 12/02/2001 15: 38 EST Rita Fowler MD PATHOLOGY ORDERABLES [facility] [address] [place] [address] documented in this encounter Visit Diagnoses Not on filedocumented in this encounter Care Teams Water Superintendent Relationship Specialty Start Date End Date Unknown, ProviderMD PCP - General 01/30/09 09/22/09 Unknown, ProviderMD PCP - General 09/23/09 03/22/16 Unknown, ProviderMD 09/23/09 documented as of this encounter
--- OUTSIDE RECORDS SUMMARY | 2024-05-02 12:04 | XMS_ITS | Encounter Summary ---
[place] [address] Care Team Providers Care Supervisor Special Effects Name Role Phone Asia Gil DO Primary Care Provider [phone] Encounter Details Date Type Department Care Team (Late st Contact Info) Description 02/17/2024 Telephone [facility] [place] [address] Mikaela Pritchard, RN Social History Tobacco Use Types Packs/Day Years Used Date Smoking Tobacco: Never Smokeless Tobacco: Never Comments:uses medical yumiko nader Alcohol Use Standard Drinks/Week Comments Not Currently 0 (1 standard drink = 0.6 oz pur e alcohol) 12 years ago [facility] Inpatient Questions Answer Date Recorded Prevent Contact with Others Not on file 01/09 Feels Threatened by Someone Not on file 01/09 Feels Unsafe at Home or Work/School no 01/18/2023 Physical Signs of Abuse Present Not on file 01/18/2023 Sex and Gender Information Value Date Recorded Sex Assigned at Not on file Gender Identity Not on file Sexual Orientation Not on file documented as of this encounter Miscellaneous Notes * Telephone Encounter - Mikaela Pritchard, RN - 02/18/2024 10:[address] Taylor reported no need for additional labs. He had placed the note on the chart, as a reminder. OUTGOING call to pt. Reported to pt no need to arrive 1 hr early, etc. Pt acknowledged. * Telephone Encounter - Mikaela Pritchard RN - 02/18/2024 10:06 AM EDT Continued secureChat with Dr. Taylro/Michelle: Dr. Taylor: Her labs are OK Jodee 12:48 PM Michelle Whittaker: Good Morning,looks like there is time held for this on 02-20 in the morning. I call the patient and get this scheduled. Jodee 1:04 PM Michelle: correct, I am awaiting the order still Jodee 1:08 PM Me: ok, I'll get an order pended and confirm appt with pt. Jodee 1:16 PM Michelle Whittaker: Thank you Jodee 1:24 PM Me: Time slot held was the 9:15, correct? Jodee 1:34 PM Bk Taylor MD: Reglaana should have placed the order Jodee 1:48 PM Michelle Whittaker: I have double checked and no order has been placed at this time. Jodee 1:51 PM Me: It's not in there. I just got finished with pre-procedure questions, as I wanted to make sure everything was kosher. DR. TAYLOR--were you aware that concrete block plant supervisor declined ASA hold? Jodee 2:10 PM Me: Any recommendations before I clock out shortly? Jodee 4:00 PM Bk Taylor MD: I will look into it Jodee 5:25 PM MA: Sorry, this is late. What is Eb-n6? Thanks Jodee 11:51 PM Me: She read the name off the label and said it was something the report writer started her on. L-methylfolate Calcium..........6 mg Methylcobalamin.......................4 mg Pyridoxal 5'-Phosphate....... 70 mg Alpha Lipoic Acid...............600 mg Benfotiamine ........................300 mg Looks like it's for vascular and neuropathic pain. 7:34 AM Bk Taylor MD: Can you please have her stop it for the next couple of days. The order is signed. Thanks 10:04 AM OUTGOING call to pt. Reported above. Sent NPO instructions through [facility] portal although pt does have difficulty with some anti-anxiety meds (note on order). Noticed labs on pt's order. Will pend to Dr. Taylor. Pt stated she would have completed at so instructions given. * Telephone Encounter - Mikaela Pritchard, RN - 02/17/2024 8:32 AM EDT Incoming transferred call from [place], stating pt was in the other day and had an outburst regardingnot being able to have her procedure. See notes from Dr. Taylor and Dr. Reyes. Reports Dr. Taylor was supposed to call her back yesterday, and she was to have a procedure with him on Mon @ 8:45. States she did not hear from him. Reviewed chart. Did find in Dr. Taylor's note: %( at 9:15 LESI Labs ordered today and will follow the results. SecureChat sent to Dr. Taylor as I don't see it scheduled and pt still has f/u appt w/Tiffanie Garza APRN on 02/24. OUTGOING call to pt in response to phone call and secureChat response from Dr. Taylor: Hi- Thanks for checking in. She was supposed to follow up on my . I talked to her at length, when she had a major issue when the procedure could not be done last Wednesday, as her labs were not ordered. So, we ordered labs and sent her there. She was also supposed to be added onto the schedule. Adding Michelle in to check. 47 mins Michelle- Could you please check in to see if the order is in for a LESI and see that we have her onthe schedule. I don't exactly remember if you or Louann took care of it. 46 mins MA Her labs are OK I want to go over all the pre-procedure questions again, to make sure everything is on track. Procedure Requested: Left L4 - 5 lumbar epidural steroid injection What is your current Pain Score (1-10 range)? 4-8/10 Does your pain make activities of daily living difficult? If yes, please describe what activity andlevel of difficulty. Standing, walking for any distance, bending, lifting, sleeping. Mod-sev difficulties. Pertinent Medical History - h/o Thrombocytopenia/bleeding tendency/platelet dysfunction: no - h/o Liver disease; abnormal liver function: yes h/o SIMMONS - h/o Chronic kidney disease (CKD); abnormal kidney function: yes CKD stage II - Patient on dialysis? no - Patient has pacemaker/defibrillator: no Is patient taking an anticoagulant? None Is patient taking any NSAIDS/supplements? None/ Eb-n6 (by report writer) Is patient taking aspirin? yes 81mg If yes, is it prescribed? yes If yes, what reason is it prescribed? Cardiology stent: PT REPORTS THAT CARDIOLOGY DECLINED ASA HOLD X 6 DAYS Is patient taking Antibiotics? No Is patient a diabetic? Yes Hemoglobin A1C? 7.4 <6months ago Has patient been on greater than 40mg of steroid 14 days or longer? No Has patient had any steroid injections anywhere in his/her body within the last two weeks? No Does patient need sedation? yes PT REPORTS BAD REACTION TO LORAZEPAM SO CONCERNED WITH ANYTHING IN SAME FAMILY OF MEDS Does patient need NPO guidelines? yes Does patient have allergies to contrast/local anesthetic/steroid? No SecureChat resend to Dr. Taylor regarding cardiology refusal on ASA hold. documented in this encounter Plan of Treatment Upcoming Encounters Date Type Department Care Team (Latest Contact Info) Description 05/08/2024 10:30 AM EDT Hospital Encounter Pain Management [facility] [place] [address] Bk Taylor MD [facility] [place] [address] 05/08/2024 10:30 AM EDT - 05/08/2024 11:00 AM EDT [place] [address] Bk Taylor MD [facility] [place] [address] INJECTION, ANESTHETIC AGENT AND/OR STEROID, TRANSFORAMINAL EPIDURAL, LUMBAR OR SACRAL, SINGLE LEVEL (WRVU 1.9) 05/12/2024 1:00 PM EDT Office [place] [address] Sadi Styles MD [facility] [address] 05/29/2024 10:15 AM EDT TH Visit (TeleHealth) [facility] [place] [phone] Natalee Sanchez APRN [facility] [place] [address] Scheduled Procedures Name Priority Associated Diagnoses Date/Ti me INJECTION, ANESTHETIC AGENT AND/OR STEROID, TRANSFORAMINAL EPIDURAL, LUMBAR OR SACRAL, SINGLE LEVEL (WRVU 1.9) Left lumbar radiculopathy 05/08/2024 10:30 AM EDT documented as of this encounter Visit Diagnoses Not on filedocumented in this encounter Care Teams Supervisor Special Effects Relationship Specialty Start Date End Date Asia Gil DO [address] [place] [address] PCP - General Family Medicine 07/09/20 documented as of this encounter
--- OUTSIDE RECORDS SUMMARY | 2024-05-02 12:04 | XMS_ITS | Encounter Summary ---
Author Organization [facility] Address [address] [place] [address] Care Team Providers Care Dining Car Steward Name Role Phone Unknown, Provider MD Primary Care Provider Unknown, Provider Primary Care Provider [phone] Unknown, Provider Unavailable Encounter Details Date Type Department Care Team (Late st Contact Info) Description 02/11/2006 Results Only [facility] conversion [address] [place] [address] Tiffanie Lake MD [address] [place] [id number] Social History Tobacco Use Types Packs/Day Years Used Date Smoking Tobacco: Never Assessed Sex and Gender Information Value Date Recorded Sex Assigned at Not on file Gender Identity Female 09/01/2023 8:32 EST Sexual Orientation Not on file documented as of this encounter Plan of Treatment Not on file documented as of this encounter Procedures Procedure Name Priority Date/Time Associated Diagnosis Comments CYTOPATHOLOGY Routine 02/11/2006 0:00 EDT documented in this encounter Results * CYTOPATHOLOGY (02/11/2006 0:00 EDT) Pathology Report: CYTOPATHOLOGY REPORT Reports generated via electronic interface contain original data; however they are lacking the format of the original report. Caution should be taken when reading/interpreti ng unformatted reports. Name: ? ANNA DEWEY I ? Accession #: ? [id number] : ? 1955 (Age: 50) ??F ?Collect Date: ? 02/11/2006 Location: ? [facility] ? Receive Date: ? 02/15/2006 Provider: ?TIFFANIE LAKE MD Copy to: ? Specimen/Source: ?ThinPrep Pap Test, Cervix/Endocervix, processed on SobresalenPrep Imaging System, with manual evaluation Last Menstrual Period: ? 01/12/06 Other: ? Additional clinical information: Recent heavy bleeding. S/P oopherectomy ? SPECIMEN ADEQUACY ? Satisfactory for Evaluation - transformation zone component present GENERAL CATEGORIZATION ? Negative for Intraepithelial Lesion or Malignancy INTERPRETATION ? Shift in naomi present suggestive of bacterial vaginosis. ? Document reviewed and electronically signed by: ? GERRI Ramirez(ASCP) ? Report Date: ??02/17/2006 09:03 End of Report [facility] 02/11/2006 02/15/2006 Tiffanie Lake MD PATHOLOGY ORDERABLES [facility] [address] [place] [address] documented in this encounter Visit Diagnoses Not on filedocumented in this encounter Care Teams Dining Car Steward Relationship Specialty Start Date End Date Unknown, Provider, PCP - General 01/30/09 09/22/09 Unknown, Provider, PCP - General 09/23/09 03/22/16 Unknown, Provider, 09/23/09 documented as of this encounter
--- OUTSIDE RECORDS SUMMARY | 2024-05-02 12:04 | XMS_ITS | Encounter Summary ---
[place] [address] Care Team Providers Care Jackhammer Operator Name Role Phone Asia Gil DO Primary Care Provider [phone] Reason for Visit * Reason Onset Date Comments Medication Problem 03/10/2024 Potential joanne e effects reported by patient Encounter Details Date Type Department Care Team (Late st Contact Info) Description 03/10/2024 Telephone Cardiology at [address] [address] Haley Leggett RN Medication Problem (Potential side effects reported by patient ) Social History Tobacco Use Types Packs/Day Years Used Date Smoking Tobacco: Never Smokeless Tobacco: Never Comments:uses medical yumiko nader Alcohol Use Standard Drinks/Week Comments Not Currently 0 (1 standard drink = 0.6 oz pur e alcohol) 12 years ago [facility] Inpatient Questions Answer Date Recorded Prevent Contact [...] encounter Miscellaneous Notes * Telephone Encounter - Haley Leggett RN - 03/27/2024 4:23 PM EDT This RN requested MD follow-up via secure chat. * Telephone Encounter - Haley Leggett RN - 03/10/2024 8:34 AM EDT Toyin requested a call via [facility] to discuss possible side effects she may be having from her medications - Toyin states she has looked in to the medications she is taking and feels her metoprolol and atorvastatin have been a potential cause for the following symptoms: -extreme fatigue (gets tired going from one room to another -excessive diaphoresis - a cold/tingling feeling in her fingers/toes -short-term memory loss Toyin states ever since her stent placement 4 years ago, she has been feeling this poorly and believes she could be potentially overmedicated and asks do you think the metoprolol is slowing my heart rate down too much? Her recent vitals are: (03/09/24) 111/55, HR in the 60's Later that day: 107/56 HR still in the 60's I asked Toyin if there were other known medical concerns that could be contributing to these symptoms - she sated she has chronic pain in her foot that has not been resolved yet (she states dr's are having a hard time finding the cause of the pain) but reports this is not related to her side effects. I also asked Toyin about her water and food intake. She replied I have kidney disease so I am very diligent about my water intake and I am eating like normal (at least 3 meals daily). I thanked Toyin for her time and information, and agreed to forward this along to for advisement. We will call her back when we receive a response. Toyin thanked me for the assistance and verbalized that she is in agreement with this plan of care. documented in this encounter Plan of Treatment Upcoming Encounters Date Type Department Care Team (Latest Contact Info) Description 05/08/2024 10:30 AM EDT Hospital Encounter [place] [address] Bk Contreras MD [facility] [place] [address] 05/08/2024 10:30 AM EDT - 05/08/2024 11:00 AM EDT Surgery Pain Management [place] [phone] Bk Contreras MD [facility] [place] [address] INJECTION, ANESTHETIC AGENT AND/OR STEROID, TRANSFORAMINAL EPIDURAL, LUMBAR OR SACRAL, SINGLE LEVEL (WRVU 1.9) 05/12/2024 1:00 PM EDT Office Visit Cardiology at [place] [address] Sadi Styles MD [facility] [address] 05/29/2024 10:15 AM EDT TH Visit (TeleHealth) [facility] [place] [address] Natalee Sanchez APRN [facility] [place] [address] Scheduled Procedures Name Priority Associated Diagnoses Date/Ti me INJECTION, ANESTHETIC AGENT AND/OR STEROID, TRANSFORAMINAL EPIDURAL, LUMBAR OR SACRAL, SINGLE LEVEL (WRVU 1.9) Left lumbar radiculopathy 05/08/2024 10:30 AM EDT documented as of this encounter Visit Diagnoses Not on filedocumented in this encounter Care Teams Jackhammer Operator Relationship Specialty Start Date End Date Asia Gil DO [address] [place] [address] PCP - General Family Medicine 07/09/20 documented as of this encounter
--- OUTSIDE RECORDS SUMMARY | 2024-05-02 12:04 | XMS_ITS | Encounter Summary ---
Author Organization [facility] Address [address] [place] [address] Care Team Providers Care Fur Trimmer Name Role Phone Mauro Phelps MD Primary Care Provider [phone] Unknown, Provider Unavailable [phone] Asia Gil DO Primary Care Provid er Encounter Details Date Type Department Care Team (Late st Contact Info) Description 12/25/2020 Lab Requisition [facility] Pathology & Laboratory Medicine - [facility] [address] [place] [address] Aggie Sawant MD [facility] [place], [place] [id number] Encounter for other general examination Social History Tobacco Use Types Packs/Day Years [...] Date/Time Associated Diagnosis Comments SURGICAL PATHOLOGY Today 12/25/2020 10 :30 EDT Encounter for other general examination documented in this encounter Results * SURGICAL PATHOLOGY (12/25/2020 10:30 EDT) Final Diagnosis A. STOMACH, POLYPS, BIOPSY: - Fundic gland polyps. B. GASTROESOPHAGEAL JUNCTION, BIOPSY: - Fundic gland polyps. - Focal intestinal metaplasia noted. - Negative for dysplasia. - Squamous mucosa with mild reactive changes. C. COLON, TRANSVERSE, POLYP, BIOPSY: - Tubular adenoma. D. COLON, ASCENDING, POLYP, BIOPSY: - Tubular adenoma. E. COLON, ASCENDING, POLYPS X3, BIOPSY: - Tubular adenomas. F. COLON, TRANSVERSE, POLYPS X4, BIOPSY: - Tubular adenomas. G. COLON, DESCENDING, POLYP, BIOPSY: - Tubular adenoma. 12/26/2020 11:21 [facility] Attestation By the signature below, the attending physician certifies that they have 1) personally conducted a gross and/or microscopic examination of the described specimen(s), and/or personally interpreted the results of laboratory testing of the described specimen(s), and 2) personally rendered or confirmed the above diagnosis. 12/26/2020 11:21 [facility] at 1121 Clinical History Abdominal pain 12/26/2020 11:21 [facility] Gross Description A. Received in formalin labelled with proper patient identification (initials P, L) and gastric polyps are 4 light wellington tissues ranging in size from 0.3 x 0.2 x 0.1 cm up to 0.3 x 0.2 x 0.2 cm. Submitted intact in A1. B. Received in formalin labelled with proper patient identification (initials P, L) and GE junction biopsies R14 wellington-pink tissues ranging in size from 0.2 x 0.2 x 0.1 cm up to 0.8 x 0.2 x 0.1 cm. Submitted entirely in B1-B3. C. Received in formalin labelled with proper patient identification (initials P, L) and transverse colon polyp is a 0.3 x 0.3 x 0.2 cm wellington-pink tissue. Submitted intact in C1. D. Received in formalin labelled with proper patient identification (initials P, L) and ascending colon polyp are 2 light wellington tissues measuring 0.2 x 0.2 x 0.1 cm and 0.3 x 0.2 x 0.1 cm. Submitted intact in D1. E. Received in formalin labelled with proper patient identification (initials P, L) and ascending colon polyps x3 are 3 light wellington tissues ranging in size from 0.1 x 0.1 x 0.1 cm up to 0.3 x 0.3 x 0.3 cm. Submitted intact in E1. F. Received in formalin labelled with proper patient identification (initials P, L) and transverse colon polyps x4 are 4 light wellington tissues ranging in size from 0.2 x 0.2 x 0.1 cm up to 0.4 x 0.3 x 0.2 cm. Submitted intact in F1. G. Received in formalin labelled with proper patient identification (initials P, L) and descending colon polyp is a 0.5 x 0.2 x 0.2 cm light wellington tissue. Submitted intact in G1. SHARI ORELLANA(ASCP) 12/25/2020 18:42 12/26/2020 11:21 EDT [facility] Performing Lab [facility] 11:21 EDT [facility] Scanned Images 12/26/2020 11:21 EDT [facility] Tissue STOMACH STRUCTURE / Unknown 12/25/2020 10:30 EDT 12/25/2020 16:06 EDT Tissue specimen (specimen) ESOPHAGEAL STRUCTURE / Unknown 12/25/2020 10:30 EDT 12/25/2020 16:06 EDT Tissue specimen (specimen) POLYP OF COLON / Unknown 12/25/2020 10:30 EDT 12/25/2020 16:06 EDT Tissue specimen (specimen) POLYP OF COLON / Unknown 12/25/2020 10:30 EDT 12/25/2020 16:06 EDT Tissue specimen (specimen) POLYP OF COLON / Unknown 12/25/2020 10:30 EDT 12/25/2020 16:06 EDT Tissue specimen (specimen) POLYP OF COLON / Unknown 12/25/2020 10:30 EDT 12/25/2020 16:06 EDT Tissue specimen (specimen) POLYP OF COLON / Unknown 12/25/2020 10:30 EDT 12/25/2020 16:06 EDT Aggie Sawant MD PATHOLOGY ORDERA BLES [facility] [address] [place] [address] documented in this encounter Visit Diagnoses Diagnosis Encounter for other general examination documented in this encounter Care Teams Fur Trimmer Relationship Specialty Start Date End Date Mauro Phelps MD PCP - General 03/23/16 08/31/23 Asia Gil DO [address] [place] [address] PCP - General 09/01/23 Unknown, Provider, 09/23/09 documented as of this encounter
--- OUTSIDE RECORDS SUMMARY | 2024-05-02 12:04 | XMS_ITS | Encounter Summary ---
[place] [address] Care Team Providers Care Stave Hewer Name Role Phone Asia Gil DO Primary Care Provider [phone] Encounter Details Date Type Department Care Team (Late st Contact Info) Description 03/30/2024 Telephone [facility] [place] [address] Mikaela Pritchard, RN Social History Tobacco Use Types Packs/Day Years Used Date Smoking Tobacco: Never Smokeless Tobacco: Never Comments:uses medical yumiko nader Alcohol Use Standard Drinks/Week Comments Not Currently 0 (1 standard drink = 0.6 oz pur e alcohol) 12 years ago [facility] Inpatient Questions Answer Date Recorded Prevent Contact [...] Telephone Encounter - Mikaela Pritchard, RN - 03/30/2024 2:55 PM EDT OUTGOING call to Dr. Keith's office in response to secureChat from Natalee Sanchez APRN: Genaro Combs, could you please call Dr. Keith's off ice and ask them to send us the EMG/NCV forthis patient. . Thank you so much Wed 3:09 PM Reviewed chart. FOUND EMG STUDY UNDER MEDIA DATED 10/27/23 for procedure date of 10/26/23. OUTGOING call to PCP's office, to confirm that pt has had only one EMG study. Spoke to Leah at 's office who confirmed. Will send info to Natalee. documented in this encounter Plan of Treatment Upcoming Encounters Date Type Department Care Team (Latest Contact Info) Description 05/08/2024 10:30 AM EDT Hospital Encounter [place] [phone] Bk Contreras MD [facility] [place] [address] 05/08/2024 10:30 AM EDT - 05/08/2024 11:00 AM EDT Surgery Pain Management [place] [phone] Bk Contreras MD [facility] [place] [address] INJECTION, ANESTHETIC AGENT AND/OR STEROID, TRANSFORAMINAL EPIDURAL, LUMBAR OR SACRAL, SINGLE LEVEL (WRVU 1.9) 05/12/2024 1:00 PM EDT Office Visit Cardiology at [address] [phone] Sadi Styles MD [facility] [place] [address] 05/29/2024 10:15 AM EDT TH Visit (TeleHealth) [facility] [place] [address] Natalee Sanchez, MANAGER TARGET [facility] [place] [place] [address] Scheduled Procedures Name Priority Associated Diagnoses Date/Ti me INJECTION, ANESTHETIC AGENT AND/OR STEROID, TRANSFORAMINAL EPIDURAL, LUMBAR OR SACRAL, SINGLE LEVEL (WRVU 1.9) Left lumbar radiculopathy 05/08/2024 10:30 AM EDT documented as of this encounter Visit Diagnoses Not on filedocumented in this encounter Care Teams Stave Hewer Relationship Specialty Start Date End Date Asia Gil DO [address] [place] [address] PCP - General Family Medicine 07/09/20 documented as of this encounter
--- OUTSIDE RECORDS SUMMARY | 2024-05-02 12:04 | XMS_ITS | Encounter Summary ---
Author Organization [facility] Address [address] [place] [address] Care Team Providers Care First Aid Trainer Name Role Phone Unknown, Provider MD Primary Care Provider Unknown, Provider Primary Care Provider [phone] Unknown, Provider Unavailable Encounter Details Date Type Department Care Team (Late st Contact Info) Description 01/18/2004 Results Only [facility] [place] conversion [address] [place] [address] Tiffanie Lake MD [address] [place] [id number] Social History Tobacco Use Types Packs/Day Years Used Date Smoking Tobacco: Never Assessed Sex and Gender Information Value Date Recorded Sex Assigned at Not on file Gender Identity Female 09/01/2023 8:32 EST Sexual Orientation Not on file documented as of this encounter Plan of Treatment Not on file documented as of this encounter Procedures Procedure Name Priority Date/Time Associated Diagnosis Comments CYTOPATHOLOGY Routine 01/18/2004 0:00 EDT documented in this encounter Results * CYTOPATHOLOGY (01/18/2004 0:00 EDT) Pathology Report: CYTOPATHOLOGY REPORT Reports generated via electronic interface contain original data; however they are lacking the format of the original report. Caution should be taken when reading/interpreti ng unformatted reports. Name: ? ANNA DEWEY Leslie ? Accession #: ? [id number] : ? 1955 (Age: 48) ??F ?Collect Date: ? 01/18/2004 Location: ? [facility] ? Receive Date: ? 01/22/2004 Provider: ?TIFFANIE LAKE MD Copy to: ? Specimen/Source: ?ThinPrep Pap Test, Cervix/Endocervix Last Menstrual Period: ? 01/02/04 Previous Gynecologic Pathology: ? ASC-US ? SPECIMEN ADEQUACY ? Satisfactory for Evaluation - transformation zone component present GENERAL CATEGORIZATION ? Negative for Intraepithelial Lesion or Malignancy ? Document reviewed and electronically signed by: ? Tammy Argueta, GERRI(ASCP) ? Report Date: ??01/24/2004 11:42 End of Report [facility] 01/18/2004 01/22/2004 Tiffanie Lake MD PATHOLOGY ORDERABLES [facility] [address] [place] [address] documented in this encounter Visit Diagnoses Not on filedocumented in this encounter Care Teams First Aid Trainer Relationship Specialty Start Date End Date Unknown, Provider, PCP - General 01/30/09 09/22/09 Unknown, ProviderMD PCP - General 09/23/09 03/22/16 Unknown, Provider, 09/23/09 documented as of this encounter
--- OUTSIDE RECORDS SUMMARY | 2024-05-02 12:04 | XMS_ITS | Encounter Summary ---
Author Organization [facility] Address [address] [place] [address] Care Team Providers Care Mail Deliverer Name Role Phone Mauro Phelps MD Primary Care Provider [phone] Unknown, Provider MD Unavailable [phone] Asia Gil DO Primary Care Provid er Encounter Details Date Type Department Care Team (Late st Contact Info) Description 03/25/2020 Lab Requisition [facility] Pathology & Laboratory Medicine - [facility] [address] [place] [address] Outr Resulting Lab, Provider Social History Tobacco [...] Procedure Name Priority Date/Time Associated Diagnosis Comments ZZCOVID-19 TEST [facility] PCR Today 03/25/2020 13:33 EDT COVID-19 TESTING Routine 03/25/2020 13:3 3 EDT documented in this encounter Results * COVID-19 TEST [facility] PCR (03/25/2020 13:33 EDT) Swab ENTIRE NASOPHARYNX / Unknown 03/25/2020 13:33 EDT 03/25/2020 21:02 EDT Provider Outr Resulting Lab MICROBIOLOGY - GENERAL ORDERABLES Performing Organization Address [facility] Co de Phone Number [facility] [address] [place] [address] * COVID-19 TESTING (03/25/2020 13:33 EDT) COVID-19 rt-PCR Result Negative Negative 03/26/2020 13:48 EDT [facility] Comment: This test has not been FDA cleared or approved. This test has been authorized by FDA under an EUA for use by authorized laboratories. This test has been authorized only for detection of nucleic acid from 2019-nCoV, not for any other viruses or pathogens. This test is only authorized for the duration of the declaration that circumstances exist justifying the authorization of emergency use of in vitro diagnostic tests for detection and/or diagnosis of 2019-nCoV under section 564(b)(1) of Act, 21 U.S.C ?? 360bbb-3(b) (1), unless the authorization is terminated or revoked sooner. Negative results do not preclude 2019-nCoV infection and should not be used as the sole basis for treatment or other patient management decisions. Negative results must be combined with clinical observations, patient history, and epidemiological information. Performed on the Axion Bio[employer]her Fusion instrument Performing Lab [place] 03/26/2020 13:48 EDT [facility] Swab 03/25/2020 13:3 3 EDT 03/25/2020 21:02 EDT Provider Outr Resulting Lab MICROBIOLOGY - GENERAL ORDERABLES Performing Organization Address City/[facility]/ZIP Co de Phone Number [facility] [address] [place] [address] documented in this encounter Visit Diagnoses Not on filedocumented in this encounter Care Teams Mail Deliverer Relationship Specialty Start Date End Date Mauro Phelps MD PCP - General 03/23/16 08/31/23 Asia Gil DO [facility] [place] [address] PCP - General 09/01/23 Unknown, Provider, 09/23/09 documented as of this encounter
--- OUTSIDE RECORDS SUMMARY | 2024-05-02 12:04 | XMS_ITS | Encounter Summary ---
Author Organization [facility] Address [address] [place] [address] Care Team Providers Care Yoga Instructor Name Role Phone Unknown, Provider Primary Care Provider [phone] Unknown, Provider Unavailable [phone] Encounter Details Date Type Department Care Team (Late st Contact Info) Description 05/01/2010 Results Only [facility] [place] [facility] - [facility] ([facility] [place] [address] [place], [place] [phone] Laci Bardales MD [address] [place] [address] Social History Tobacco Use Types Packs/Day Years Used Date Smoking Tobacco: Never Assessed Sex and Gender Information Value Date Recorded Sex Assigned at Not on file Gender Identity Female 09/01/2023 8:32 EST Sexual Orientation Not on file documented as of this encounter Plan of Treatment Not on file documented as of this encounter Procedures Procedure Name Priority Date/Time Associated Diagnosis Comments CYTOPATHOLOGY Routine 05/01/2010 0:00 EDT documented in this encounter Results * CYTOPATHOLOGY (05/01/2010 0:00 EDT) Pathology Report: CYTOPATHOLOGY REPORT ? Reports generated via electronic interface contain original data; ? however they are lacking the format of the original report. ? Caution should be taken when reading/interpreti ng unformatted reports. ? Name: ? ANNA DEWEY I ? Accession #: ? [id number] ? : ? 1955 (Age: 55) ??F ?Collect Date: ? 05/01/2010 ? Location: ? [facility] ? Receive Date: ? 05/05/2010 ? Provider: ?LACI BARDALES MD ? Copy to: ? Specimen/Source: ?Pap Test, Cervix/Endocervix, ThinPrep Imaging System ? with manual evaluation ? Last Menstrual Period: ? Other: ? HPVA - HPV testing requested if ASC-US on the current ThinPrep Pap test. ? SPECIMEN ADEQUACY ? Satisfactory for Evaluation ? - transformation zone component present ? GENERAL CATEGORIZATION ? Negative for Intraepithelial Lesion or Malignancy ? Document reviewed and electronically signed by: ? Luma [place],CT(ASCP) ? Report Date: ??05/07/2010 11:57 ? End of Report ? [facility] 05/01/2010 05/05/2010 Laci Bardales MD PATHOLOGY ORDERABLES Performing Organization Address City/State/[facility] Co de Phone Number [facility] [address] [place] [address] documented in this encounter Visit Diagnoses Not on filedocumented in this encounter Care Teams Yoga Instructor Relationship Specialty Start Date End Date Unknown, Provider, PCP - General 09/23/09 03/22/16 Unknown, ProviderMD 09/23/09 documented as of this encounter
--- OUTSIDE RECORDS SUMMARY | 2024-05-02 12:04 | XMS_ITS | Encounter Summary ---
[place] [address] Care Team Providers Care Padded Box Sewer Name Role Phone Asia Gil DO Primary Care Provider [phone] Reason for Visit * Auth/Cert (Routine) Specialty Diagnoses / Procedures Referred By Leonel t Referred To Contact Diagnoses Left lumbar radiculopathy Lt lumbar radiculopathy Procedures PRO INJECTION DX/THER SBST INTRLMNR LMBR/SAC W/IMG GDN INJECTION, EPIDURAL, LUMBAR OR SACRAL (CAUDAL), WITH IMAGING GUIDANCE (WRVU 1.8) Bk Contreras MD [facility] [place] [address] [place] Referral ID Status Reason Start Date Expiration Date Visits Re quested Visits Authorized [id number] 1 1 Encounter Details Date Type Department Care Team (Late st Contact Info) Description 02/21/2024 9:00 AM EDT Ancillary [place] [phone] Bk Contreras MD [facility] [place] [address] Social History Tobacco Use Types Packs/Day Years Used Date Smoking Tobacco: Never Smokeless Tobacco: Never Comments:uses medical yumiko nader Alcohol Use Standard Drinks/Week Comments Not Currently 0 (1 standard drink = 0.6 oz pur e alcohol) 12 years ago [facility] Inpatient Questions Answer Date Recorded Prevent Contact [...] as of this encounter Plan of Treatment Upcoming Encounters Date Type Department Care Team (Latest Contact Info) Description 05/08/2024 10:30 AM EDT Hospital Encounter Pain Management [place] [phone] Bk Contreras MD [facility] [place] [address] 05/08/2024 10:30 AM EDT - 05/08/2024 11:00 AM EDT Surgery Pain Management [place] [phone] Bk Contreras MD [facility] [place] [place] [address] INJECTION, ANESTHETIC AGENT AND/OR STEROID, TRANSFORAMINAL EPIDURAL, LUMBAR OR SACRAL, SINGLE LEVEL (WRVU 1.9) 05/12/2024 1:00 PM EDT Office Visit Cardiology at [place] [phone] Sadi Styles MD [facility] [place] [address] 05/29/2024 10:15 AM EDT TH Visit (TeleHealth) [facility] [place] [phone] Natalee Sanchez, AUTOMOTIVE PAINT TECHNICIAN [facility] [place] [address] Scheduled Procedures Name Priority Associated Diagnoses Date/Ti me INJECTION, ANESTHETIC AGENT AND/OR STEROID, TRANSFORAMINAL EPIDURAL, LUMBAR OR SACRAL, SINGLE LEVEL (WRVU 1.9) Left lumbar radiculopathy 05/08/2024 10:30 AM EDT documented as of this encounter Procedures Procedure Name Priority Date/Time Associated Diagnosis Comments FILM LIBRARY STORAGE ONLY PAIN CLINIC C ARM Routine 02/21/2024 10:13 AM EDT documented in this encounter Results * Film Library- Storage Only pain Clinic C-Arm (02/21/2024 10:13 AM EDT) Narrative [facility] - 02/21/2024 10:13 AM EDT See PACS for result report. Bk Contreras MD IMG FILM LIBRARY ORD ERABLES Performing Organization Address City/State/[facility] Co de Phone Number [place], [place] documented in this encounter Visit Diagnoses Not on filedocumented in this encounter Care Teams Padded Box Sewer Relationship Specialty Start Date End Date Asia Gil DO [address] [place] [address] PCP - General Family Medicine 07/09/20 documented as of this encounter
--- OUTSIDE RECORDS SUMMARY | 2024-05-02 12:04 | XMS_ITS | Encounter Summary ---
Author Organization [facility] Address [address] [place] [address] Care Team Providers Care Regional Business Development Manager Name Role Phone Unknown, Provider Primary Care Provider [phone] Encounter Details Date Type Department Care Team (Late st Contact Info) Description 08/30/2008 Before PRISM Converted Visit ([place]) [facility] - [facility] conversion [address] [place] [address] Con Espitia, DO [address] [place] [address] Social History Tobacco Use Types Packs/Day Years [...] Date/Time Associated Diagnosis Comments SURGICAL PATHOLOGY Routine 08/30/2008 0:00 EST documented in this encounter Results * SURGICAL PATHOLOGY (08/30/2008 0:00 EST) Pathology Report: SURGICAL PATHOLOGY REPORT ? Reports generated via electronic interface contain original data; ? however they are lacking the format of the original report. ? Caution should be taken when reading/interpreti ng unformatted reports. ? Name: ? TOYIN DEWEY I ? Accession #: ? [id number] ? : ? 1955 (Age: 53) ??F ?Collect Date: ? 08/30/2008 ? Location: ? [facility] ? Receive Date: ? 08/30/2008 ? Provider: CON MITZ DO ? Copy to: GRISEL CHAMORRO MD ? Addendum ? Date Ordered: ? 09/19/2008 ? Status: Signed Out ? Date Complete: ? 09/19/2008 ? By: Naila M. Carolina ? Date Reported: ? 09/20/2008 ? Addendum Diagnosis ? Liver, needle core biopsy: ? 1. ?Steatohepatitis. ? - Moderately active (Grade 2 of 3). ? - With cirrhosis (Stage 4 of 4). ? Addendum Comment ? This addendum is issued to correct and clarify the staging. ??The diagnosis is amended as above. ??(Dr. Anderson)/tmg ? Document reviewed and electronically signed by: ? Murali Anderson, MD ? Report date: 09/20/2008 ? By the signature above, the attending physician certifies that he/she has ? personally conducted a gross and/or microscopic examination of the described ? specimens and rendered or confirmed the above diagnosis. ? Final Report ? Final Pathologic Diagnosis: ? Liver, needle core biopsy: ? 1. ?Steatohepatitis. ??See comment. ? - Moderately active (grade 2 of 3). ? 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 ? Comment: ? Histologic sections consist of two intact liver core biopsies with many ? portal tracts available for evaluation. ??There is marked micro- and ? macrovesicular steatosis (approximately 75% of the biopsy) within the lobules ?? along with scattered foci of lobular inflammation consisting of neutrophils and lymphocytes. ??The portal tracts have a mild inflammatory infiltrate consisting ?? predominantly of neutrophils and lymphocytes. ??The bile ducts are uninvolved by inflammation and there is mild bile ductular proliferation. ??Trichrome stain ? highlights portal and lobular septal fibrosis as well as well-developed, ? bridging fibrosis with focal nodule formation consistent with evolving ? cirrhosis. ??Prussian blue stain for iron is negative. ??PAS-amylase stain is ? non-contributory. ??Correlation with clinical and serologic studies is ? recommended. ??(Dr. Means)/kmm ? Gross Description: ? Received in formalin labelled Lee and liver biopsy are two yellow-wellington soft tissue cores, 1.6 and 1.8 cm in length by 0.1 cm in diameter, submitted in toto in a single cassette with iron, trichrome and PSA-amylase requested. ??(L. ?? Ryan)/ljk ? Clinical History: ? Abnl LFT, fatty liver; R/O cirrhosis ? Specimens Received: ? Liver biopsy ? Document reviewed and electronically signed by: ? Rodo Arnold, ? Report ??Date: 09/04/2008 17:52 ? By the signature above, the attending physician certifies that he/she has ? personally conducted a gross and/or microscopic examination of the described ? specimens and rendered or confirmed the above diagnosis. ? End of Report ? [facility] 08/30/2008 08/30/2008 7:5 1 EST Con Espitia DO PATHOLOGY ORDERABLES [facility] [address] [place] [address] documented in this encounter Visit Diagnoses Not on filedocumented in this encounter Care Teams Regional Business Development Manager Relationship Specialty Start Date End Date Unknown, Provider, PCP - General 01/30/09 09/22/09 documented as of this encounter
--- OUTSIDE RECORDS SUMMARY | 2024-05-02 12:04 | XMS_ITS | Encounter Summary ---
[place] [address] Care Team Providers Care Community Center Director Name Role Phone Asia Gil DO Primary Care Provider [phone] Reason for Visit * Auth/Cert (Routine) Specialty Diagnoses / Procedures Referred By Leonel t Referred To Contact Diagnoses Left lumbar radiculopathy Lt lumbar radiculopathy Procedures PRO INJECTION DX/THER SBST INTRLMNR LMBR/SAC W/IMG GDN INJECTION, EPIDURAL, LUMBAR OR SACRAL (CAUDAL), WITH IMAGING GUIDANCE (WRVU 1.8) Bk Contreras MD [facility] [place] [address] [facility] Referral ID Status Reason Start Date Expiration Date Visits Re quested Visits Authorized [id number] 1 1 Encounter Details Date Type Department Care Team (Latest Contact Info) Description 02/21/2024 8:44 AM EDT - 02/21/2024 10:00 AM EDT Hospital En[place] [address] Bk Contreras MD [facility] [address] PAIN CLIN[facility] [place], [place] [id number] Left lumbar radiculopathy Discharge Disposition: Home Social History Tobacco Use Types Packs/Day Years Used Date Smoking Tobacco: Never Smokeless Tobacco: Never Comments:uses medical yumiko nader Alcohol Use Standard Drinks/Week Comments Not Currently 0 (1 standard drink = 0.6 oz pur e alcohol) 12 years ago [facility] Inpatient Questions Answer Date Recorded Prevent Contact [...] Sign Reading Time Taken Comments Blood Pressure 153/62 02/21/2024 8:55 AM EDT Pulse 86 02/21/2024 8:55 AM EDT Temperature - - Respiratory Rate - - Oxygen Saturation 100% 02/21/2024 9:50 AM EDT Inhaled Oxygen Concentration - - Weight - - Height - - Body Mass Index - - documented in this encounter Medications at Time of Discharge Medication Sig Dispensed Refills Start Date End Date atorvastatin (Lipitor) 40 mg tablet Take 40 mg by mouth nightly. 02/12/2024 diclofenac (Voltaren) 1 % Gel Apply topically as needed. 09/06/2023 BD Dionna 2nd Gen Pen Needle 32 gauge x 5/32 Needle USE ONCE DAILY WITH LANTUS 01/22/2024 ezetimibe (Zetia) 10 mg tablet Take 10 mg by mouth daily. isosorbide mononitrate CR (Imdur) 30 mg ER 24 hr tablet Take 30 mg by mouth daily. 12/31/2023 lisinopriL (Zestril) 2.5 mg tablet Take 2.5 mg by mouth 2 times daily. 12/19/2022 traMADoL (Ultram) 50 mg tablet Take 50 mg by mouth daily. *taking 1/2 tablet twice a day* 12/24/2023 allopurinoL (Zyloprim) 100 mg tablet Take 0.5 tablets by mouth daily. 60 tablet 11 08/19/2023 cholecalciferol, Vitamin D3, 50 mcg (2,000 unit) Capsule Take 1 capsule by mouth daily. 90 capsule 3 08/10/2023 OneTouch Ultra Test Strip CHECK BLOOD SUGAR DAILY 11/16/2022 torsemide (Demadex) 10 mg Tablet Take 10 mg by mouth daily. nitroGLYcerin (Nitrostat) 0.4 mg Tablet, Sublingual Take 0.4 mg by mouth as needed. 07/08/2020 ondansetron (Zofran) 4 mg Tablet Take 4 mg by mouth as needed. 02/27/2021 Lantus Solostar U-100 Insulin pen 11 Units. 04/23/2021 OneTouch Ultra2 Meter Misc USE DIRECTED TO TEST BLOOD GLUCOSE 03/25/2021 OneTouch Delica Plus Lancet 33 gauge Misc USE TO TEST BLOOD SUGAR DAILY 03/27/2021 aspirin 81 mg Tablet, Chewable Take 81 mg by mouth daily. 90 tablet 3 02/14/2021 polyethylene glycoL (Miralax) 17 gram Powder in Packet Take 17 g by mouth daily. 14 each 02/04/2021 acetaminophen (Tylenol) 325 mg Tablet Take 2 tablets by mouth every 4 hours as needed for Pain. 30 tablet 1 01/27/2021 calcium carbonate (Tums) 200 mg calcium (500 mg) Tablet, Chewable Take 1-2 tablets by mouth every 4 hours as needed for Heartburn. 01/27/2021 metoprolol succinate XL (Toprol-XL) 50 mg Tablet Sustained Release 24 hr Take 1 tablet by mouth daily. 30 tablet 12 01/27/2021 pantoprazole EC (Protonix) 40 mg Tablet, Delayed Release (E.C.)Indications:GERD (gastroesophageal reflux disease) Take 1 tablet by mouth daily. 90 tablet 3 01/27/2021 gabapentin (Neurontin) 100 mg Capsule Take 2 capsules by mouth 2 times daily. 90 capsule 12 01/27/2021 04/04/2024 documented as of this encounter H&P Notes * Bk Contreras MD - 02/21/2024 8:45 AM EDT Patient Name: Toyin Coley Patient Age: 68 y.o. Birthdate: 1955 Admit date: 02/21/2024 Attending Physician: No att. providers found [facility] PREPROCEDURE HISTORY AND PHYSICAL HPI: Toyin Coley is a 68 y.o. female who presents today for: Procedure: left Lumbar Epidural Steroid Injection - Interlaminar L4-L5 or L5-S1 The history is obtained from the patient, and I have reviewed medical records provided by the referring physician, located in the electronic medical record to fill in gaps in the patient's recollection of events, treatments and outcomes. ROS: Patient denies recent fever, chills, infection, wounds, hospitalizations, ED visits, use of antibiotics. Pertinent positives and negatives otherwise noted in the HPI. I have reviewed the patient's past medical history, past surgical history, list of medications, allergies, family history and social history as documented in the electronic medical record. Physical Examination: BP 153/62 (Patient Position: Sitting) Pulse 86 SpO2 100% Pain Ratin/10 Please see previous evaluation performed on 01/10/2024, by Ms. Greg APRN. No pertinent changes are noted from previous assessment. Pulmonary/Chest: Effort normal. Skin: Skin is warm and dry. No rash noted. Not diaphoretic. Radiologic Data: Relevant imaging was reviewed today. New Imaging: None Labs: PT: Lab Results Component Value Date PT 11.4 02/11/2024 INR: Lab Results Component Value Date INR 1.0 02/11/2024 PTT: Lab Results Component Value Date PTT 32 02/11/2024 PLT: Lab Results Component Value Date PLATELET 185 02/11/2024 PLATELET 171 02/11/2024 Assessment and Plan: Lt lumbar radiculopathy Please see previous evaluation performed on 01/10/2024, by Ms. Greg APRN, for justification of medical necessity for planned left Lumbar Epidural Steroid Injection - Interlaminar L4-L5 or L5-S1 A behavioral contracted signed after detailed review. It is scanned to eDH. Addressed all questions and concerns. Nursing intake/checklist reviewed. Medications holds confirmed. Risks and benefits discussed with patient. No contraindications to the procedure at this time, will proceed. Bk Contreras MD [facility]ending [facility] [place] [address] / documented in this encounter Miscellaneous Notes * Op Note - Bk Contreras MD - 02/21/2024 9:54 AM EDT Pain Management Operative Note Patient Name: Toyin Coley : [id number] MR#: [id number] Case Date: 02/21/2024 Surgeon: Surgeon(s) and Role: * Bk Contreras MD - Primary * Candy Boucher DO - Fellow - Assisting Present on Admission: Left lumbar radiculopathy Postoperative diagnosis: Same Procedure(s) (LRB): INJECTION, EPIDURAL, LUMBAR OR SACRAL (CAUDAL), WITH IMAGING GUIDANCE (WRVU 1.8) (Left) LUMBAR INTERLAMINAR EPIDURAL STERIOID INJECTION PROCEDURE NOTE- L5- S1 L bias Ms. Toyin Coley has been referred to the Pain Management Center for a lumbar epidural steroid injection by Asia Gil DO [address] [place] [id number]. The patient complains of low back pain with pain radiating down the left leg. Ms. Coley was greeted by the nurse who verified patients name and . The patient was then takento the fluoroscopy suite. Ms. Coley was interviewed and the medical record reviewed. There were no medical, pharmacologic, radiographic, or other structural contraindications to attempting fluoroscopically guided lumbar epidural steroid injection. Risks and potential side effects, as well as potential benefits of the procedure were reviewed with Ms. Coley. Her voiced concerns were addressed. After I was assured that informed consent was obtained, the patient consent form was signed. Standard time-out procedure was performed. Ms. Coley was placed in the prone position on the fluoroscopy table and automated blood pressure cuff and pulse oximeter applied. The skin entry point for entering/approaching the L5-S1 epidural space for the lumbar epidural steroid injection was marked. Following thorough chlorhexidine preparation of the skin and draping and 1% lidocaine infiltration of the skin entry point and subcutaneous tissues, an 18 gauge Touhy needle was placed and advanced under fluoroscopic guidance and with loss ofresistance technique into the L5-S1 epidural space. Needle tip placement and depth were aided and confirmed by fluoroscopy. There was no paresthesia or return of blood or CSF through the needle. 1 cc's of Omnipaque 240 was injected with clear epidural spread confirmed with fluoroscopy. Methylprednisolone 80 mg (1 ml) with Lidocaine 1% (2 ml) was injected slowly. This was followed by 1 cc of Lidocaine to flush the steroid out of the needle. There was not any unusual discomfort expressed by Ms. Coley. Ms. Coley's vital signs were stable throughout the procedure and were as recorded in nursing records. PLAN: Follow up with me in 4-6 weeks. Close blood glucose control discussed. She will also contact her PCP. Post procedure instruction was given as documented in nursing documentation and having met discharge criteria, she was discharged from the Pain Management Center. Bk Contreras MD Attending [facility] [address] [address] / CC: Asia Gil, [address] [address] documented in this encounter Plan of Treatment Upcoming Encounters Date Type Department Care Team (Latest Contact Info) Description 05/08/2024 10:30 AM EDT Hospital En[place] [address] Bk Contreras MD [facility] [place] [address] 05/08/2024 10:30 AM EDT - 05/08/2024 11:00 AM EDT [place] [address] Bk Contreras MD [facility] [place] [address] INJECTION, ANESTHETIC AGENT AND/OR STEROID, TRANSFORAMINAL EPIDURAL, LUMBAR OR SACRAL, SINGLE LEVEL (WRVU 1.9) 05/12/2024 1:00 PM EDT Office Visit Cardiology at [address] [phone] Sadi Styles MD [facility] [place] [address] 05/29/2024 10:15 AM EDT TH Visit (TeleHealth) [facility] [place] [phone] Natalee Sanchez APRN [facility] [place] [address] Scheduled Procedures Name Priority Associated Diagnoses Date/Ti me INJECTION, ANESTHETIC AGENT AND/OR STEROID, TRANSFORAMINAL EPIDURAL, LUMBAR OR SACRAL, SINGLE LEVEL (WRVU 1.9) Left lumbar radiculopathy 05/08/2024 10:30 AM EDT documented as of this encounter Procedures Procedure Name Priority Date/Time Associated Diagnosis Comments Injection Dx/Ther Sbst Intrlmnr Lmbr/Sac W/Img Gdn (38947) 02/21/2024 9:47 AM EDT Left lumbar radiculopathy INJECTION, EPIDURAL, LUMBAR OR SACRAL (CAUDAL), WITH IMAGING GUIDANCE Routine 02/21/2024 8:44 AM EDT Left lumbar radiculopathy documented in this encounter Visit Diagnoses Diagnosis Left lumbar radiculopathy- Primary Thoracic or lumbosacral neuritis or radiculitis, unspecified Left lumbar radiculopathy Thoracic or lumbosacral neuritis or radiculitis, unspecified documented in this encounter Admitting Diagnoses Diagnosis Left lumbar radiculopathy Thoracic or lumbosacral neuritis or radiculitis, unspecified documented in this encounter Active and Recently Administered Medications Times are shown in EDT. PRN Medication Order 02/19/2024 02/20/2024 02/21/2024 iohexoL (Omnipaque) (240 mg/mL) solution (CANCELED) PRN, Starting on Wed02/21/24 at 0954, Until Wed02/21/24 at 1200, Intra-Operative (Intra-Procedure), Routine 0954 (Given - Provid er: Bk Contreras MD) lidocaine (pf) (Xylocaine) (10 mg/mL) 1% injection (CANCELED) PRN, Starting on Wed02/21/24 at 0955, Until Wed02/21/24 at 1200, Intra-Operative (Intra-Procedure), Routine 0955 (Given - Provid er: Bk Contreras MD) methylPREDNISolone acetate (DEPO-Medrol) (80 mg/mL) injection (CANCELED) PRN, Starting on Wed02/21/24 at 0955, Until Wed02/21/24 at 1200, Intra-Operative (Intra-Procedure), Routine 0955 (Given - Provid er: Bk Contreras MD - Comment: rebel) documented in this encounter Care Teams Community Center Director Relationship Specialty Start Date End Date Asia Gil DO [address] [place] [address] PCP - General Family Medicine 07/09/20 documented as of this encounter
--- OUTSIDE RECORDS SUMMARY | 2024-05-02 12:04 | XMS_ITS | Encounter Summary ---
Author Organization [place] [address] Care Team Providers Care Piece Meat Trimmer Name Role Phone Asia Gil DO Primary Care Provider [phone] Encounter Details Date Type Department Care Team (Late st Contact Info) Description 02/18/2024 Orders Only [facility] [place] [phone] Bk Contreras MD [facility] [place] [address] Social History Tobacco Use Types Packs/Day Years Used Date Smoking Tobacco: Never Smokeless Tobacco: Never Comments:uses medical yumiko nader Alcohol Use Standard Drinks/Week Comments Not Currently 0 (1 standard drink = 0.6 oz pur e alcohol) 12 years ago [facility] Inpatient Questions Answer Date Recorded Prevent Contact [...] on file documented as of this encounter Progress Notes * Mikaela Pritchard RN - 02/18/2024 10:44 AM EDT Opened in error. documented in this encounter Plan of Treatment Upcoming Encounters Date Type Department Care Team (Latest Contact Info) Description 05/08/2024 10:30 AM EDT Hospital Encounter Pain Management [place] [phone] Bk Contreras MD [facility] [place] [address] 05/08/2024 10:30 AM EDT - 05/08/2024 11:00 AM EDT Surgery Pain Management [place] [phone] Bk Contreras MD [facility] [place] [address] INJECTION, ANESTHETIC AGENT AND/OR STEROID, TRANSFORAMINAL EPIDURAL, LUMBAR OR SACRAL, SINGLE LEVEL (WRVU 1.9) 05/12/2024 1:00 PM EDT Office Visit Cardiology at [place] [phone] Sadi Styles MD [facility] [place] [address] 05/29/2024 10:15 AM EDT TH Visit (TeleHealth) [facility] [place] [address] Natalee Sanchez, TIPPLE SUPERVISOR [facility] [place] [address] Scheduled Procedures Name Priority Associated Diagnoses Date/Ti me INJECTION, ANESTHETIC AGENT AND/OR STEROID, TRANSFORAMINAL EPIDURAL, LUMBAR OR SACRAL, SINGLE LEVEL (WRVU 1.9) Left lumbar radiculopathy 05/08/2024 10:30 AM EDT documented as of this encounter Visit Diagnoses Not on filedocumented in this encounter Care Teams Piece Meat Trimmer Relationship Specialty Start Date End Date Asia Gil DO [address] [place] [address] PCP - General Family Medicine 07/09/20 documented as of this encounter
--- OUTSIDE RECORDS SUMMARY | 2024-05-02 12:04 | XMS_ITS | Encounter Summary ---
Author Organization [facility] Address [address] [place] [address] Care Team Providers Care Excavator Operator Name Role Phone Unknown, Provider MD Primary Care Provider [phone], Provider Primary Care Provider [phone] Unknown, Provider Unavailable [phone] Encounter Details Date Type Department Care Team (Late st Contact Info) Description 05/02/2002 Results Only [facility] [address] [place] [address] Chris Toney MD [address] [place] [phone] Social History Tobacco Use Types Packs/Day Years [...] Date/Time Associated Diagnosis Comments SURGICAL PATHOLOGY Routine 05/02/2002 0:00 EDT documented in this encounter Results * SURGICAL PATHOLOGY (05/02/2002 0:00 EDT) Pathology Report: SURGICAL PATHOLOGY REPORT Reports generated via electronic interface contain original data; however they are lacking the format of the original report. Caution should be taken when reading/interpreti ng unformatted reports. Name: ? ANNA DEWEY I ? Accession #: ? [id number] ? : ? 1955 (Age: 47) ??F ? Collect Date: ? 05/02/2002 ? Location: ? [facility] ? Receive Date: ? 05/02/2002 ? Provider: SAMIRA TONEY MD Copy to: LEIDA FARAH LABEL PRINTING MACHINIST ? Final Pathologic Diagnosis: ? Gallbladder, cholecystitis: - ??Mild, chronic cholecystitis. ??See comment. Comment: ? No stones were identified within the specimen or specimen container. Clinical correlation is recommended. ??(Dr. Mccauley)/dtl Document reviewed and electronically signed by: Maria Eugenia Mccauley MD Report ??Date: 05/04/2002 18:04 By the signature above, the attending physician certifies that he/she has personally conducted a gross and/or microscopic examination of the described specimens and rendered or confirmed the above diagnosis. Specimen(s) Received: ? GB Clinical History: ? Cholelithiasis with chronic cholecystitis Gross Description: ? Received in formalin labelled Lee and gallbladder is a gallbladder received previously incised that measures 5.0 cm in length and 3.0 cm in diameter. ??The serosal surface is wellington-pink, smooth and glistening. ??The specimen does not include a grossly identifiable portion of cystic duct. ??Two metal clips are placed at the edge of the specimen. ??The gallbladder mucosa is wellington-brown, smooth and velvety, and without endo- or exophytic lesions. ??The gallbladder wall measures 0.1 cm in maximum thickness. ??No choleliths are present. ??No cystic duct lymph node is identified. ??Three solar manufacturer's representative sections are submitted in one cassette. ??(Dr. Pate)/dtl End of Report [facility] 05/02/2002 05/02/2002 15: 41 EDT Chris Toney MD PATHOLOGY ORDERABLES [facility] [address] [place] [address] documented in this encounter Visit Diagnoses Not on filedocumented in this encounter Care Teams Excavator Operator Relationship Specialty Start Date End Date Unknown, Provider, PCP - General 01/30/09 09/22/09 Unknown, ProviderMD PCP - General 09/23/09 03/22/16 Unknown, ProviderMD 09/23/09 documented as of this encounter
--- OUTSIDE RECORDS SUMMARY | 2024-05-02 12:04 | XMS_ITS | Encounter Summary ---
Author Organization [facility] [place] [address] Care Team Providers Care Paid Search Manager Name Role Phone Asia Gil DO Primary Care Provider [phone] Reason for Visit * Reason Comments Follow-up S/P LESI Encounter Details Date Type Department Care Team (Late st Contact Info) Description 03/29/2024 1:45 PM EDT Office Visit [facility] [place] [phone] Bk Contreras MD [facility] [place] [address] Left lumbar radiculopathy; SIMMONS (nonalcoholic steatohepatitis) Social History Tobacco Use Types Packs/Day Years Used Date Smoking Tobacco: Never Smokeless Tobacco: Never Comments:uses medical yumiko nader Alcohol Use Standard Drinks/Week Comments Not Currently 0 (1 standard drink = 0.6 oz pur e alcohol) 12 years ago [facility] Inpatient Questions Answer Date Recorded [...] Sign Reading Time Taken Comments Blood Pressure 130/64 03/29/2024 2:10 PM EDT Pulse 72 03/29/2024 2:10 PM EDT Temperature - - Respiratory Rate - - Oxygen Saturation 97% 03/29/2024 2:10 PM EDT Inhaled Oxygen Concentration - - Weight 75.3 kg (166 lb) 03/29/2024 2:10 PM EDT Height 160 cm (5' 3) 03/29/2024 2:10 PM EDT Body Mass Index 29.41 03/29/2024 2:10 PM EDT documented in this encounter Patient Instructions * Patient Instructions* Natalee Sanchez, JEWELRY MAKER - 03/29/2024 1:45 PM EDT I have ordered the following injection plan for you: [x] Transforaminal Epidural Steroid injection - L5-S1 Can I eat and/or drink prior to my procedure? You are required to fast for this procedure. This is a precaution to help eliminate the possibilityof vomiting and decrease the risk of aspiration, which can cause pneumonia and can be potentially fatal. You may have food up until 6 hours prior to your procedure. You may have the following clear liquids up until 2 hours prior to your procedure: water, apple or cranberry juice, jan benedicto, seltzer (no spindrift), coffee or tea WITHOUT milk (all milk products) or cream, and all flavors of popsicles. (NO ice cream, ice milk, or sherbet). As a reminder, you will need to hold the following medications: Do not take any aleve for at least 4 days You may stay on the aspirin Please go straight to 3L to have your blood drawn at least 1 hour prior to procedure. You will need to have a ride home. Scheduling: Our scheduling team will work on prior authorization from your insurance provider and will call youfor scheduling. If you have questions about scheduling your injection, please call the scheduling team at . Please call the office [phone] and ask to speak with a nurse if any of the following occurs within 14 days prior to your injection/procedure: [x]You have begun taking steroids or antibiotics [x]You have had any changes in your health status or medications [x]You have started taking a blood thinner documented in this encounter Progress Notes * Natalee Sanchez APRN - 03/29/2024 1:45 PM EDT Images from the original note were not included. [facility] [place] [address] Phone: PAIN MANAGEMENT FOLLOW UP VISIT NOTE DATE OF VISIT 03/29/2024 Patient Toyin Coley 1955 REFERRING PROVIDER Asia Gil DO [address] [place] [address] PRIMARY CARE PROVIDER Asia Gil DO Reason for Visit: Toyin Coley is a 68 y.o. female seen in referral today upon the request of Asia Gil for consultation and treatment of left lower extremity pain. She has had this pain since the fall of 2020. It gradually increased over time. She had a nerve block done by the leather shaver which was not diagnostic. She had an EMG/NCS done by Dr. Meredith Keith at [facility]. Patient maintains that she has seen 8 providers for this condition and is frustrated that she has not had lasting relief. She is happy to report that she did have 2 full days of relief after the [place] LESI. The pain returned at full force by Wednesday. Her pain is most intense in the medial mid foot. She has numbness, pain and paresthesias when lyingon her left side. Pain score: 3/10 but increases severely to 8-9. Description: stabbing, throbbing, squeezing, Weakness, numbness, tingling:numbness Saddle Anesthesia: no Other associated symptoms: no Alleviating factors: medications, LESI Aggravating factors: lying on her left side increases the leg symptoms. During day from 8-4 her pain is most severe. Pain today:3/10 Current Medications for pain: tylenol, tramadol prn, gabapentin 100mg 2 po BID Function: has had to limit walking and other activities in light of the severe pain Patient continues to perform clinician directed home exercises. Patient denies any new neurological symptoms. Denies ataxia, amber weakness, bladder/bowel complaints. Denies recent hospitalizations since last visit. Denies fever, chills. Past medical, social and family history is unchanged from prior visit. Physical Exam: Wt Readings from Last 1 Encounters: 02/11/24 75.3 kg (166 lb) BMI Readings from Last 1 Encounters: 02/11/24 29.41 kg/m?? Appearance/ Behavior Well groomed, good eye contact, relaxed, cooperative, normal speech, no acute distress, no involuntary movements Lungs Respirations unlabored Cardiovascular Bilateral lower extremities warm and dry, pulses present and symmetrical Skin No rash, asymmetric hair loss, bruises, scars, swelling Musculoskeletal Inspection/Palpation/ Range of Motion/Facet Loading maneuvers Gait:antalgic requires walker Heel: intact Toe: intact Inspection: good alignment, no excessive curvature, shoulder and hip levels equal bilaterally; no skin breakdown. No residuals from procedure. ROM: near full ROM Palpation: There is some left lumbar paraspinal muscle tenderness. GT bursa: nontender SI Joints: nontender. Del Rosario's maneuver: neg SLR: neg. Neuro Motor Strength Segment Muscle Action Bilateral Results L2-5, S 1 Gluteus medius Hip Adduction 5/5 L4-5, S1 Gluteus medius Hip Abduction 5/5 L2 Iliopsoas Hip flexion 5/5 L3 Quadriceps Knee extension 5/5 L4 Tibialis anterior Ankle Dorsiflexion 5/5 L5 Extensor hallucis Great toe extension 5/5 S1 Gastrocnemius Ankle Plantar flexion 5/5 Reflexes: Segment Tendon Bilateral L3-4 Patella 2+ S1 Ankle 2+ Sensory Exam: No sensory deficits noted in lumbar dermatomes Imaging Studies: MRI lumbr spine 12/07/23 Assessment Toyin Coley is a 68 y.o. female seen today for a chief complaint of left lower extremity pain, most severe in the medial left foot. She had 2 days of complete relief with the IL LESI after which her pain returned to baseline. The pain is severely affecting her function. Will proceed with a transforaminal SHERIDAN in an attempt to obtain more lasting relief. 1. Left lumbar radiculopathy 2. SIMMONS (nonalcoholic steatohepatitis) Prothrombin Time APTT Platelet count Justification of Medical Necessity Patient's pain has been present for >6 weeks and is an average of >6/10 on 0-10 scale and/or pain interferes with ADLs. There has not been improvement in pain or performance of ADLs after at least 6 weeks of conservative treatment within the last 6 months as indicated in detail in the body of today's visit note. The patient continues clinician directed home exercise program including exercises learned in PT. At this time there are no red flag symptoms on history. Patient instructed to go to emergency department if new or worsening neurological symptoms develop. Plan: Procedure: Transforaminal Epidural Steroid injection - L5-S1 Laterality: Left Contrast Required? Yes Pertinent Medical History - h/o Thrombocytopenia/bleeding tendency/platelet dysfunction: no - h/o Liver disease/abnormal liver function: yes SIMMONS - h/o Chronic kidney disease (CKD)/abnormal kidney function: yes - Patient on dialysis? no - Is patient a diabetic?Yes Hemoglobin A1C? 7.4 ASHLEY Risk Stratification - Intermediate Is patient taking an anticoagulant? No Is patient taking any NSAIDs/Nutritional Supplements? Yes Naproxen (Naprosyn, Aleve) (4 day hold, restart 24hrs after procedure) Is patient taking Aspirin? Yes, patient does not need to hold Is patient taking Antibiotics? No Has patient been on greater than 40mg of steroid 14 days or longer or has patient had a steroid injection within the last two weeks? No Does patient have allergies to contrast/local anesthetic/steroid? No Labs? PTT , PT/INR, and platelets Imaging? In Chart Does patient need IV? yes Does patient need sedation? yes Does patient need NPO guidelines? yes Special Instructions - Labs must be done day of procedure. Follow up post procedure - Telehealth Visit 3-4 weeks with Natalee Sanchez, CARMEN, JEWELRY MAKER Patient verbalized agreement of the plan. All of patient's questions were answered to their satisfaction. Time spent on this visit reflects time evaluating the patient pre-visit, during the visit and post-visit. Total time spent 40 minutes Natalee Sanchez APRN Nurse Practitioner [facility] [place] [address] / CC: Asia Gil DO Referring Provider: Asia Sanchez APRN 03/29/2024 [facility] * Bk Contreras MD - 03/29/2024 1:45 PM EDT This patient was seen in conjunction with Ms. Natalee Sanchez APRN as part of a shared visit. 68 y.o. female presenting with eft lower extremity pain . I have seen and examined . Toyin Coley. She only had 2 days of relief after her last LESI. Prior medical records, scanned documents, prior imaging studies and tests were reviewed in detail with the patient. Assessment and plan discussed with the patient. 1. Left lumbar radiculopathy 2. SIMMONS (nonalcoholic steatohepatitis) Plan/ Recommendations: We reviewed etiology, predisposing factor(s), natural course, imaging results as well as treatment options including medications, physical therapy/exercise, therapeutic injections, and surgery. The risks, consequences, alternatives, and benefits of various treatment options were discussed with the patient in great detail, including conservative management, injections and procedures. - Medications: Patient will continue current meds. - Imaging: None indicated at this time. - Physical therapy/modalities/DME: Patient will likely benefit from physical therapy and continued home exercise program. - Interventional/Surgical procedures: Patient will return to the clinic for a left L5- S1 transforaminal SHERIDAN . and The procedure, risks and benefits were reviewed, including infection, bleeding, nerve damage, headache, and increased pain. The patient expressed understanding and is willing to proceed. Decisions regarding concurrent use of medications, anticoagulants, steroids, antibiotics are listed below: JUSTIFICATION OF MEDICAL NECESSITY Patient's pain has been present for >6 weeks and is an average of >6/10 on 0-10 scale and/or pain interferes with ADLs. Conservative management includes: Medications- Acetaminophen and Neuropathics, Physical Therapy - Patient cannot tolerate physical therapy at the current time due to the intensity of the pain., and Continues clinician directed home exercise program including exercises learned in PT. - Referrals: None indicated at this time. - Pain psychologist: Patient would benefit from pain neuroscience education and pain psychology to address issues of relaxation, behavioral change, coping style, and other factors important to improvement, and consideration of biofeedback, CBT, and coping strategies. - Activity: Continue activity as tolerated. - Follow-up: 4-6 weeks after planned TFESI. Bk Contreras MD documented in this encounter Plan of Treatment Upcoming Encounters Date Type Department Care Team (Latest Contact Info) Description 05/08/2024 10:30 AM EDT Hospital Encounter Pain Management [place] [phone] Bk Contreras MD [facility] [place] [address] 05/08/2024 10:30 AM EDT - 05/08/2024 11:00 AM EDT Surgery Pain Management [place] [phone] Bk Contreras MD [facility] [place] [address] INJECTION, ANESTHETIC AGENT AND/OR STEROID, TRANSFORAMINAL EPIDURAL, LUMBAR OR SACRAL, SINGLE LEVEL (WRVU 1.9) 05/12/2024 1:00 PM EDT Office Visit Cardiology at [place] [phone] Sadi Styles MD [facility] [place] [address] 05/29/2024 10:15 AM EDT TH Visit (TeleHealth) Pain and Spine Center at [place] [phone] Natalee Sanchez APRN [facility] [place] [address] Scheduled Orders Name Type Priority Associated Diagnoses Orde r Schedule Prothrombin Time Lab STAT SIMMONS (nonalcoholic steatohepatitis) Expected: 03/29/2024 (Approximate), Expires: 09/28/2024 APTT Lab STAT SIMMONS (nonalcoholic steatohepatitis) Expected: 03/29/2024 (Approximate), Expires: 09/28/2024 Platelet count Lab STAT SIMMONS (nonalcoholic steatohepatitis) Expected: 03/29/2024 (Approximate), Expires: 09/28/2024 SURGICAL CASE REQUEST: INJECTION, ANESTHETIC AGENT AND/OR STEROID, TRANSFORAMINAL EPIDURAL, LUMBAR OR SACRAL, SINGLE LEVEL (WRVU 1.9) Procedures Routine Left lumbar radiculopathy Ordered: 03/29/2024 Scheduled Procedures Name Priority Associated Diagnoses Date/Ti me INJECTION, ANESTHETIC AGENT AND/OR STEROID, TRANSFORAMINAL EPIDURAL, LUMBAR OR SACRAL, SINGLE LEVEL (WRVU 1.9) Left lumbar radiculopathy 05/08/2024 10:30 AM EDT documented as of this encounter Visit Diagnoses Diagnosis Left lumbar radiculopathy Thoracic or lumbosacral neuritis or radiculitis, unspecified SIMMONS (nonalcoholic steatohepatitis) Other chronic nonalcoholic liver disease Left lumbar radiculopathy Thoracic or lumbosacral neuritis or radiculitis, unspecified documented in this encounter Care Teams Paid Search Manager Relationship Specialty Start Date End Date Asia Gil DO [address] [place] [address] PCP - General Family Medicine 07/09/20 documented as of this encounter
--- OUTSIDE RECORDS SUMMARY | 2024-05-02 12:04 | XMS_ITS | Encounter Summary ---
Author Organization [facility] Address [address] [place] [address] Care Team Providers Care Fuels Engineer Name Role Phone Mauro Phelps MD Primary Care Provider [phone] Unknown, Provider MD Unavailable Asia Gil DO Primary Care Provid er Encounter Details Date Type Department Care Team (Late st Contact Info) Description 02/04/2021 Lab Requisition [facility] Pathology & Laboratory Medicine - [facility] [address] [place] [address] Outr Resulting Lab, Provider Social History Tobacco [...] Procedure Name Priority Date/Time Associated Diagnosis Comments HAPTOGLOBIN Routine 02/04/2021 6:20 EDT documented in this encounter Results * (ABNORMAL) HAPTOGLOBIN (02/04/2021 6:20 EDT) Haptoglobin 468(H) 32 - 197 mg/dL 02/05/2021 11:59 EDT [facility] Blood VENOUS BLOOD / Unknown 02/04/2021 6:20 EDT 02/04/2021 15:54 EDT Provider Outr Resulting Lab CHEMISTRY & BLOOD GAS ORDERABLES [facility] [address] [place] [address] documented in this encounter Visit Diagnoses Not on filedocumented in this encounter Care Teams Fuels Engineer Relationship Specialty Start Date End Date Mauro Phelps MD PCP - General 03/23/16 08/31/23 Asia Gil DO [address] [place] [address] PCP - General 09/01/23 Unknown, ProviderMD 09/23/09 documented as of this encounter
--- OUTSIDE RECORDS SUMMARY | 2024-05-02 12:04 | XMS_ITS | Encounter Summary ---
Author Organization [facility] Address [address] [place] [address] Care Team Providers Care Auto Electrical Technician Name Role Phone Mauro Phelps MD Primary Care Provider [phone] Unknown, Provider MD Unavailable [phone] Asia Gil DO Primary Care Provid er Encounter Details Date Type Department Care Team (Late st Contact Info) Description 04/04/2020 Lab Requisition [facility] Pathology & Laboratory Medicine - [facility] [address] [place] [address] Outr Resulting Lab, Provider Social History Tobacco [...] Procedure Name Priority Date/Time Associated Diagnosis Comments LYME AB Routine 04/04/2020 6:00 EDT documented in this encounter Results * LYME AB (04/04/2020 6:00 EDT) Lyme Ab Negative Negative 04/05/2020 10:26 EDT [facility] Comment: New 3rd generation assay in use 03/20/2020 Blood VENOUS BLOOD / Unknown 04/04/2020 6:00 EDT 04/04/2020 17:20 EDT Provider Outr Resulting Lab IMMUNOLOGY A ND SEROLOGY ORDERABLES [facility] [address] [place] [address] documented in this encounter Visit Diagnoses Not on filedocumented in this encounter Care Teams Auto Electrical Technician Relationship Specialty Start Date End Date Mauro Phelps MD PCP - General 03/23/16 08/31/23 Asia Gil DO [address] [place] [address] PCP - General 09/01/23 Unknown, ProviderMD 09/23/09 documented as of this encounter
--- OUTSIDE RECORDS SUMMARY | 2024-05-02 12:04 | XMS_ITS | Encounter Summary ---
Author Organization [facility] [place] [address] Care Team Providers Care Central Office Equipment Installer Name Role Phone Asia Gil DO Primary Care Provider [phone] Encounter Details Date Type Department Care Team (Latest Contact Info) Description 03/22/2024 Travel Social History Tobacco Use Types Packs/Day Years Used Date Smoking Tobacco: Never Smokeless Tobacco: Never Comments:uses medical yumiko nader Alcohol Use Standard Drinks/Week Comments Not Currently 0 (1 standard drink = 0.6 oz pur e alcohol) 12 years ago [facility] Inpatient Questions Answer Date Recorded Prevent [...] 10:30 AM EDT Hospital Encounter Pain Management [facility] [place] [address] Bk Contreras MD [facility] [place] [address] 05/08/2024 10:30 AM EDT - 05/08/2024 11:00 AM EDT [place] [address] Bk Contreras MD [facility] [place] [address] INJECTION, ANESTHETIC AGENT AND/OR STEROID, TRANSFORAMINAL EPIDURAL, LUMBAR OR SACRAL, SINGLE LEVEL (WRVU 1.9) 05/12/2024 1:00 PM EDT Office Visit Cardiology at [place] [phone] Sadi Styles MD [facility] [place] [address] 05/29/2024 10:15 AM EDT TH Visit (TeleHealth) Pain and Spine Center at [place] [phone] Natalee Sanchez APRN [facility] [place] [address] Scheduled Procedures Name Priority Associated Diagnoses Date/Ti me INJECTION, ANESTHETIC AGENT AND/OR STEROID, TRANSFORAMINAL EPIDURAL, LUMBAR OR SACRAL, SINGLE LEVEL (WRVU 1.9) Left lumbar radiculopathy 05/08/2024 10:30 AM EDT documented as of this encounter Visit Diagnoses Not on filedocumented in this encounter Care Teams Central Office Equipment Installer Relationship Specialty Start Date End Date Asia Gil DO [address] [place] [address] PCP - General Family Medicine 07/09/20 documented as of this encounter
--- OUTSIDE RECORDS SUMMARY | 2024-05-02 12:04 | XMS_ITS | Encounter Summary ---
Author Organization [facility] Address [address] [place] [address] Care Team Providers Care Milk Tanker Driver Name Role Phone Unknown, Provider MD Primary Care Provider [phone] Unknown, Provider Primary Care Provider [phone] Unknown, Provider MD Unavailable Encounter Details Date Type Department Care Team (Late st Contact Info) Description 12/29/2007 Results Only [facility] [address] [place] [address] Con Coyne, DO [address] [place] [address] Social History Tobacco Use Types Packs/Day Years [...] Date/Time Associated Diagnosis Comments SURGICAL PATHOLOGY Routine 12/29/2007 0:00 EDT documented in this encounter Results * SURGICAL PATHOLOGY (12/29/2007 0:00 EDT) Pathology Report: SURGICAL PATHOLOGY REPORT Reports generated via electronic interface contain original data; however they are lacking the format of the original report. Caution should be taken when reading/interpreti ng unformatted reports. Name: ? LEE, ANNA I ? Accession #: ? [id number] ? : ? 1955 (Age: 52) ??F ? Collect Date: ? 12/29/2007 ? Location: ? [facility] ? Receive Date: ? 12/29/2007 ? Provider: CON COYNE DO Copy to: ? Final Pathologic Diagnosis: A. ?Duodenum, second portion, biopsy: 1. ?No pathologic features B. ?Gastric antral erythema, biopsy: 1. ?No pathologic features. C. ?Esophagus, 35 cm, biopsy: 1. ?No pathologic features. Document reviewed and electronically signed by: PETER BILLINGSLEY MD Report ??Date: 01/02/2008 14:49 By the signature above, the attending physician certifies that he/she has personally conducted a gross and/or microscopic examination of the described specimens and rendered or confirmed the above diagnosis. Specimen(s) Received: A. ?2nd portion of duodenum B. ? Antral erythema ? C. ?? Esophagus at 35 cm Clinical History: ? Abd pain Gross Description: ? Received in Hollande's fixative labelled Lee and 2nd portion of duodenum are three portions of wellington-pink soft tissue averaging 0.1 x 0.1 x 0.1 cm. ??The specimen is submitted in toto as (A). Received in Hollande's fixative labelled Lee and antral erythema is a 0.3 x 0.2 x 0.1 cm portion of wellington-pink soft tissue. ??The specimen is submitted intact as (B). Received in Hollande's fixative labelled Lee and esophagus at 35 cm is a 0.1 x 0.1 x 0.1 cm portion of wellington-pink soft tissue. ??The specimen is submitted intact as (C). ??(Ro Dawson)/[facility] End of Report [facility] 12/29/2007 12/29/2007 11: 13 EDT Con Coyne DO PATHOLOGY ORDERABLES Performing Organization Address City/State/[facility] Co de Phone Number STEPHANIE OAKES [address] [place] [address] documented in this encounter Visit Diagnoses Not on filedocumented in this encounter Care Teams Milk Tanker Driver Relationship Specialty Start Date End Date Unknown, ProviderMD PCP - General 01/30/09 09/22/09 Unknown, ProviderMD PCP - General 09/23/09 03/22/16 Unknown, ProviderMD 09/23/09 documented as of this encounter
--- OUTSIDE RECORDS SUMMARY | 2024-05-02 12:04 | XMS_ITS | Encounter Summary ---
Author Organization [facility] Address [address] [place] [id number] Care Team Providers Care Domestic Helper Name Role Phone Unknown, Provider Primary Care Provider [phone] Unknown, Provider Unavailable [phone] Encounter Details Date Type Department Care Team (Late st Contact Info) Description 09/13/2013 Results Only [facility] ([facility]) [address] [place], [place] [id number] Laci Bardales MD [address] [place] [address] Social History Tobacco Use Types Packs/Day Years Used Date Smoking Tobacco: Never Assessed Sex and Gender Information Value Date Recorded Sex Assigned at Not on file Gender Identity Female 09/01/2023 8:32 EST Sexual Orientation Not on file documented as of this encounter Plan of Treatment Not on file documented as of this encounter Procedures Procedure Name Priority Date/Time Associated Diagnosis Comments PAP TEST- RESULT ONLY Routine 09/13/2013 0:00 EST documented in this encounter Results * PAP TEST- RESULT ONLY (09/13/2013 0:00 EST) Pathology Report: CYTOPATHOLOGY REPORT Reports generated via electronic interface contain original data; however they are lacking the format of the original report. Caution should be taken when reading/interpreti ng unformatted reports. Name: ? ANNA DEWEY I ? Accession #: ? [id number] ? : ? 1955 (Age: 58) ??F ?Collect Date: ? 09/13/2013 ? Location: ? [facility] ? Receive Date: ? 09/15/2013 ? Provider: LACI BARDALES MD Copy to: ? Final Report SPECIMEN ADEQUACY ? Satisfactory for Evaluation - assessment of transformation zone component not applicable ( e.g. atrophy, vaginal sample, hysterectomy) GENERAL CATEGORIZATION ? Negative for Intraepithelial Lesion or Malignancy ?? Specimen/Source: ??Pap Test, Cervix/Endocervix, ThinPrep Imaging System with manual evaluation Document reviewed and electronically signed by: ? GERRI Snow(ASCP) ? Report ??Date: 09/19/2013 09:43 HPV with Pap Test ? Date Ordered: ? 09/19/2013 ? Status: ?? Signed Out ?Date Complete: ? 09/21/2013 ? By: ??System Interface ? Date Reported: ? 09/21/2013 ? Interpretation RESULT: Negative for HPV. No E6 or E7 mRNA is detected from HPV types 16,18,31,33,35, 39,45,51,52,56,58, 59,66, and 68 by radiology interventional physician mediated amplification. Comments Document reviewed and electronically signed by: ? System Interface ? Report date: 09/21/2013 By the signature above, the attending physician certifies that he/she has personally conducted a gross and/or microscopic examination of the described specimens and rendered or confirmed the above diagnosis. End of Report [facility] 09/13/2013 09/15/2013 Laci Bardales MD PATHOLOGY ORDERABLES Performing Organization Address City/State/[facility] Co de Phone Number [facility] [address] [place] [address] documented in this encounter Visit Diagnoses Not on filedocumented in this encounter Care Teams Domestic Helper Relationship Specialty Start Date End Date Unknown, ProviderMD PCP - General 09/23/09 03/22/16 Unknown, ProviderMD 09/23/09 documented as of this encounter
--- OUTSIDE RECORDS SUMMARY | 2024-05-02 12:04 | XMS_ITS | Encounter Summary ---
Author Organization [facility]ly [facility] [place] [address] Care Team Providers Care Seat Pack Inspector Name Role Phone Asia Gil DO Primary Care Provider [phone] Encounter Details Date Type Department Care Team (Latest Contact Info) Description 03/29/2024 Travel Social History Tobacco Use Types Packs/Day [...] 10:30 AM EDT Hospital Encounter Pain Management [facility] [place] [address] Bk Contreras MD [facility] [place] [address] 05/08/2024 10:30 AM EDT - 05/08/2024 11:00 AM EDT [place] [address] Bk Contreras MD [facility] [place] [address] INJECTION, ANESTHETIC AGENT AND/OR STEROID, TRANSFORAMINAL EPIDURAL, LUMBAR OR SACRAL, SINGLE LEVEL (WRVU 1.9) 05/12/2024 1:00 PM EDT Office Visit Cardiology at [place] [phone] Sadi Styles MD [facility] [place] [address] 05/29/2024 10:15 AM EDT TH Visit (TeleHealth) [facility] at [place] [phone] Natalee Sanchez APRN [facility] [place] [address] Scheduled Procedures Name Priority Associated Diagnoses Date/Ti me INJECTION, ANESTHETIC AGENT AND/OR STEROID, TRANSFORAMINAL EPIDURAL, LUMBAR OR SACRAL, SINGLE LEVEL (WRVU 1.9) Left lumbar radiculopathy 05/08/2024 10:30 AM EDT documented as of this encounter Visit Diagnoses Not on filedocumented in this encounter Care Teams Seat Pack Inspector Relationship Specialty Start Date End Date Asia Gil DO [address] [place] [address] PCP - General Family Medicine 07/09/20 documented as of this encounter
--- OUTSIDE RECORDS SUMMARY | 2024-05-02 12:04 | XMS_ITS | Encounter Summary ---
[place] [address] Care Team Providers Care Alpine Patroller Name Role Phone Asia Gil DO Primary Care Provider [phone] Encounter Details Date Type Department Care Team (Late st Contact Info) Description 05/02/2024 Telephone Nephrology [place] [phone] Tiffanie Cuello Social History Tobacco Use Types Packs/Day Years Used Date Smoking Tobacco: Never Smokeless Tobacco: Never Comments:uses medical yumiko nader Alcohol Use Standard Drinks/Week Comments Not Currently 0 (1 standard drink = 0.6 oz pur e alcohol) 12 years ago [facility] Inpatient Questions Answer Date Recorded Prevent [...] encounter Miscellaneous Notes * Telephone Encounter - Tiffanie Cuello - 05/02/2024 10:40 AM EDT LM for patient to call and schedule a follow up appointment. Will send out reminder letter documented in this encounter Plan of Treatment Upcoming Encounters Date Type Department Care Team (Latest Contact Info) Description 05/08/2024 10:30 AM EDT Hospital Encounter Pain Management [place] [phone] Bk Contreras MD [facility] [place] [address] 05/08/2024 10:30 AM EDT - 05/08/2024 11:00 AM EDT Surgery Pain Management [place] [phone] Bk Contreras MD [facility] [place] [address] INJECTION, ANESTHETIC AGENT AND/OR STEROID, TRANSFORAMINAL EPIDURAL, LUMBAR OR SACRAL, SINGLE LEVEL (WRVU 1.9) 05/12/2024 1:00 PM EDT Office Visit Cardiology at [address] Sadi Styles MD [facility] [address] 05/29/2024 10:15 AM EDT TH Visit (TeleHealth) [facility] at [place] [phone] Natalee Sanchez APRN [facility] [place] [address] Scheduled Procedures Name Priority Associated Diagnoses Date/Ti me INJECTION, ANESTHETIC AGENT AND/OR STEROID, TRANSFORAMINAL EPIDURAL, LUMBAR OR SACRAL, SINGLE LEVEL (WRVU 1.9) Left lumbar radiculopathy 05/08/2024 10:30 AM EDT documented as of this encounter Visit Diagnoses Not on filedocumented in this encounter Care Teams Alpine Patroller Relationship Specialty Start Date End Date Krechetoff, Asia B, DO [address] [place] [address] PCP - General Family Medicine 07/09/20 documented as of this encounter
--- OUTSIDE RECORDS SUMMARY | 2024-05-02 12:04 | XMS_ITS | Encounter Summary ---
Author Organization [facility] Address [address] [place] [address] Care Team Providers Care Batch Roller Operator Name Role Phone Unknown, Provider MD Primary Care Provider [phone], Provider Primary Care Provider [phone] Unknown, Provider Unavailable Encounter Details Date Type Department Care Team (Late st Contact Info) Description 12/07/2002 Results Only [facility] [address] [place] [address] Tiffanie Lake MD [address] [place] [phone] Social History Tobacco Use Types Packs/Day Years Used Date Smoking Tobacco: Never Assessed Sex and Gender Information Value Date Recorded Sex Assigned at Not on file Gender Identity Female 09/01/2023 8:32 EST Sexual Orientation Not on file documented as of this encounter Plan of Treatment Not on file documented as of this encounter Procedures Procedure Name Priority Date/Time Associated Diagnosis Comments CYTOPATHOLOGY Routine 12/07/2002 0:00 EST documented in this encounter Results * CYTOPATHOLOGY (12/07/2002 0:00 EST) Pathology Report: CYTOPATHOLOGY REPORT Reports generated via electronic interface contain original data; however they are lacking the format of the original report. Caution should be taken when reading/interpreti ng unformatted reports. Name: ? ANNA DEWEY Leslie ? Accession #: ? [id number] : ? 1955 (Age: 47) ??F ?Collect Date: ? 12/07/2002 Location: ? [facility] ? Receive Date: ? 12/11/2002 Provider: ?TIFFANIE LAKE MD Copy to: ? Specimen/Source: ?ThinPrep Pap Test, Cervix/Endocervix Last Menstrual Period: ? 11/20/02 Previous Gynecologic Pathology: ? ASC-US: 01/10 Other: ? HPVA - HPV testing requested if ASC-US on the current ThinPrep Pap test. ? SPECIMEN ADEQUACY ? Satisfactory for Evaluation - transformation zone component present GENERAL CATEGORIZATION ? Negative for Intraepithelial Lesion or Malignancy ? Document reviewed and electronically signed by: ? Leeanna Wilkes, SCT(ASCP) ? Report Date: ??12/11/2002 15:45 End of Report [facility] 12/07/2002 12/11/2002 Tiffanie Lake MD PATHOLOGY ORDERABLES [facility] [address] [place] [address] documented in this encounter Visit Diagnoses Not on filedocumented in this encounter Care Teams Batch Roller Operator Relationship Specialty Start Date End Date Unknown, Provider, PCP - General 01/30/09 09/22/09 Unknown, ProviderMD PCP - General 09/23/09 03/22/16 Unknown, Provider, 09/23/09 documented as of this encounter
--- OUTSIDE RECORDS SUMMARY | 2024-05-02 12:04 | XMS_ITS | Encounter Summary ---
Author Organization [facility] Address [address] [place] [address] Care Team Providers Care Computer Methods Analyst Name Role Phone Mauro Phelps MD Primary Care Provider [phone] Unknown, Provider Unavailable [phone] Reason for Visit * (Routine) - Receiving Office to Obtain Authorization Specialty Diagnoses / Procedures Referred By Leonel chin Referred To Contact Procedures XR OUTSIDE IMAGES CHEST Unknown, Provider, Referral ID Status Reason Start Date Expiration Date Visits Requested Visits Authorized [id number] Receiving Office to Obtain Authorization 01/28/2021 1 1 Encounter Details Date Type Department Care Team (Latest Contact Info) Description 01/28/2021 17:41 EDT - 01/28/2021 23:59 EDT Hospital Encounter [facility] [place] Discharge Disposition: Home or Self Care Social History Tobacco Use Types Packs/Day Years [...] 16:26 EDT documented as of this encounter Discharge Disposition Disposition Code Departure Means Destination Home or Self Care documented in this encounter Plan of Treatment Not on file documented as of this encounter Procedures Procedure Name Priority Date/Time Associated Diagnosis Comments XR OUTSIDE IMAGES CHEST Routine 01/28/2021 17:42 EDT documented in this encounter Results * XR OUTSIDE IMAGES CHEST (01/28/2021 17:42 EDT) Narrative 01/28/2021 17:42 EDT This is a non-reportable exam. Provider Unknown MD VÁSQUEZ OTHER IMAGING OR DERABLES documented in this encounter Visit Diagnoses Not on filedocumented in this encounter Care Teams Computer Methods Analyst Relationship Specialty Start Date End Date Mauro Phelps MD PCP - General 03/23/16 08/31/23 Unknown, Provider, 09/23/09 documented as of this encounter
--- OUTSIDE RECORDS SUMMARY | 2024-05-02 12:04 | XMS_ITS | Clinical Summary ---
Author Organization [facility] [place] [address] Care Team Providers Care Architectural Engineer Name Role Phone Asia Gil DO Primary Care Provider [phone] Allergies Active Allergy Reactions Criticality Noted Date Comments Benzodiazepines Other (See Comments) 04/06/2020 Paradoxical reaction to benzodiazepines House Dust Hydrocodone-Acetaminoph en Itching Metoclopramide 03/26/2020 Mold Extracts Pollen Extracts 03/26/2020 Propoxyphene Hcl Nausea And Vomiting Unclassified Drug 05/25/2011 Most environmental allergies: grass, workman, trees,pollen Medications Medication Sig Dispensed Refills Start Date End Date Status acetaminophen (Tylenol) 325 mg Tablet Take 2 tablets by mouth every 4 hours as needed for Pain. 30 tablet 1 01/27/2021 Active calcium carbonate (Tums) 200 mg calcium (500 mg) Tablet, Chewable Take 1-2 tablets by mouth every 4 hours as needed for Heartburn. 01/27/2021 Active metoprolol succinate XL (Toprol-XL) 50 mg Tablet Sustained Release 24 hr Take 1 tablet by mouth daily. 30 tablet 12 01/27/2021 Active pantoprazole EC (Protonix) 40 mg Tablet, Delayed Release (E.C.)Indications:GE RD (gastroesophageal reflux disease) Take 1 tablet by mouth daily. 90 tablet 3 01/27/2021 Active polyethylene glycoL (Miralax) 17 gram Powder in Packet Take 17 g by mouth daily. 14 each 02/04/2021 Active aspirin 81 mg Tablet, Chewable Take 81 mg by mouth daily. 90 tablet 3 02/14/2021 Active nitroGLYcerin (Nitrostat) 0.4 mg Tablet, Sublingual Take 0.4 mg by mouth as needed. 07/08/2020 Active ondansetron (Zofran) 4 mg Tablet Take 4 mg by mouth as needed. 02/27/2021 Active Lantus Solostar U-100 Insulin pen 11 Units. 04/23/2021 Active OneTouch Ultra2 Meter Misc USE DIRECTED TO TEST BLOOD GLUCOSE 03/25/2021 Active OneTouch Delica Plus Lancet 33 gauge Misc USE TO TEST BLOOD SUGAR DAILY 03/27/2021 Active torsemide (Demadex) 10 mg Tablet Take 10 mg by mouth daily. Active OneTouch Ultra Test Strip CHECK BLOOD SUGAR DAILY 11/16/2022 Active cholecalciferol, Vitamin D3, 50 mcg (2,000 unit) Capsule Take 1 capsule by mouth daily. 90 capsule 3 08/10/2023 Active allopurinoL (Zyloprim) 100 mg tablet Take 0.5 tablets by mouth daily. 60 tablet 11 08/19/2023 Active ezetimibe (Zetia) 10 mg tablet Take 10 mg by mouth daily. Active isosorbide mononitrate CR (Imdur) 30 mg ER 24 hr tablet Take 30 mg by mouth daily. 12/31/2023 Active lisinopriL (Zestril) 2.5 mg tablet Take 2.5 mg by mouth 2 times daily. 12/19/2022 Active traMADoL (Ultram) 50 mg tablet Take 50 mg by mouth daily. *taking 1/2 tablet twice a day* 12/24/2023 Active atorvastatin (Lipitor) 40 mg tablet Take 40 mg by mouth nightly. 02/12/2024 Active diclofenac (Voltaren) 1 % Gel Apply topically as needed. 09/06/2023 Active BD Dionna 2nd Gen Pen Needle 32 gauge x 5/32 Needle USE ONCE DAILY WITH LANTUS 01/22/2024 Active Active Problems Problem Noted Date Diagnosed Date Left lumbar radiculopathy 02/11/2024 Acute kidney injury 11/25/2022 Acute pulmonary edema 11/25/2022 Chronic pain disorder 11/25/2022 Depression 11/25/2022 Elevated troponin I level 11/25/2022 Generalized edema 11/25/2022 Hypoxemia 11/25/2022 Iron deficiency anemia 11/25/2022 Leukocytosis 11/25/2022 Liver cirrhosis secondary to nonalcoholic steatohepatitis (SIMMONS) 11/25/2022 Neuropathy 11/25/2022 Obstructive sleep apnea 11/25/2022 Pain in both feet 11/25/2022 Pulmonary atelectasis 11/25/2022 Restlessness and agitation 11/25/2022 Retained stone fragments 11/25/2022 Retroperitoneal abscess 11/25/2022 Shortness of breath 11/25/2022 Stage 3b chronic kidney disease 11/25/2022 Stressful life event affecting family 11/25/2022 Tachycardia 11/25/2022 PVD (peripheral vascular disease) with claudicat ion 09/05/2021 Overview (09/05/2021): ADRY's 06/13/2021: Interpretation: RIGHT: Mild arterial occlusive disease at the foot/toe level with no significant lower extremity arterial occlusive disease to the ankle at rest. LEFT: Mild arterial occlusive disease at the foot/toe level with no significant lower extremity arterial occlusive disease to the ankle at rest. Comparison: No previous study in our vascular lab database for comparison. Moderate mitral stenosis 09/05/2021 Unstable angina 05/13/2021 Overview (09/08/2021): Chest Pain Admission ([facility]) 08/22/2021: Ruled out Pancreatic fluid collection with possible absces s 02/21/2021 Anemia of chronic disease 02/21/2021 Acute blood loss anemia 02/21/2021 Pancreatitis 02/19/2021 Acute exacerbation of congestive heart failure 0 02/06/2021 HFrEF (heart failure with reduced ejection fract ion) 02/06/2021 Overview (11/19/2022): TTE 02/05/2021: SUMMARY: 1. The left ventricular chamber size is normal. Left ventricular wall thickness is normal. Global left ventricular systolic function is moderately reduced. Ejection fraction is estimated to be 40%. There are left ventricular segmental wall motion abnormalities present, as shown in the diagram below. Left ventricular diastolic function is abnormal. 2. The right ventricle is normal in size. Right ventricular global systolic function is mildly reduced. The estimated pulmonary artery systolic pressure is 34 mmHg. 3. The left atrium is moderately dilated. The right atrium appears normal. 4. The aortic valve is tricuspid. Mild aortic leaflet calcification is visualized.There is mild aortic valve stenosis. The mean trans-valvular gradient across the aortic valve is 13 mmHg. DOI= .46, LVSI= 30ml/m2. The calculated aortic valve area is 1.5 cm2. 5. The mitral valve leaflets are mildly thickened. Mild mitral leaflet calcification is visualized. There is moderate mitral stenosis present. The mean gradient across the mitral valve is 12 mmHg (HR= 108bpm). The mitral valve area is calculated at 1.4 cm2. by continuity equation. 6. The inferior vena cava appears normal in size. There is a greater than 50% respiratory change in the inferior vena cava dimension. 7. There is no prior study in our system available for comparison. TTE 05/14/2021: SUMMARY: 1. Limited study for ventricular function. 2. The left ventricular chamber size is normal and wall thickness is normal. Ejection fraction is estimated to be 55%- 60%. There are no left ventricular segmental wall motion abnormalities. 3. The right ventricle is mildly dilated. Right ventricular global systolic function is mildly reduced. 4. Compared to the prior study from 01/2021 the LV EF has improved and the previously reported wall motion abnormalities are no longer present. ?? TTE 11/13/2022:?? Interpretation Summary Left ventricle is of normal size. Wall thickness is normal. Left ventricular systolic function is normal. The left ventricular ejection fraction is 61% by Alejandro's biplane. There are no segmental wall motion abnormalities. Right ventricle is mildly dilated. Right ventricular systolic function is normal. The left atrium is severely dilated. There is mild aortic stenosis. The mean gradient across the aortic valve is 6 mmHg. The aortic valve area calculated using the continuity equation is 1.9 cm2. There is moderate mitral stenosis. The estimated mean gradient across the mitral valve is 7 mmHg. ASCVD (arteriosclerotic cardiovascular disease) 02/04/2021 Overview (03/31/2022): Images from the original note were not included. Cardiac Catheterization / IFR 02/07/2021: Conclusions: * Three vessel coronary artery disease (LAD, LCX and RCA) * Elevated left ventricular end diastolic pressure The IFR across the 70% proximal LCX lesion was 0.74. This lesion was hemodynamically significant. Cardiac Cath/ PCI 04/11/2021: Calcified severe 2 vessel CAD of the LAD and RCA and moderate but hemodynamically significant LCX??disease.??She underwent a PCI of the calcified LAD on 04/11/2021 using a 2.5 x 24 mm SYNERGY XD ASIM stent. Treadmill Stress 09/01/2021 ([facility]): Pancreatic pseudocyst 02/02/2021 PONV (postoperative nausea and vomiting) 021 History of endoscopic retrograde cholangiopancre atography 01/09/2021 Cystic duct calculus 12/27/2020 RUQ pain 12/27/2020 Overview (12/27/2020): Added automatically from request for surgery [id number] Anxiety 04/13/2020 Diabetic neuropathy 04/13/2020 Nonalcoholic steatohepatitis 04/13/2020 Restless legs syndrome (RLS) 04/05/2020 CKD (chronic kidney disease) 04/05/2020 Delirium 04/05/2020 Hyperlipidemia 05/28/2014 Overview (05/28/2014): Off statin due to foot pain side effect Hypertension 05/28/2014 Diabetes mellitus type 2, uncomplicated 05/14/20 14 Hx-TIA (transient ischemic attack) 05/14/2014 GERD (gastroesophageal reflux disease) 1 Environmental allergies 05/22/2011 Overview (01/13/2012): Display name was automatically updated by a utility run on 01/13/2012 Resolved Problems Problem Noted Date Diagnosed Date Resolved Date Pancreatitis 01/28/2021 02/06/2021 Acute pancreatitis 01/17/2021 Toxic metabolic encephalopathy 04/13/2020 02/02/2021 Acute cystitis 04/13/2020 02/02/2021 Encounters Date Type Department Care Team Description 05/02/2024 Telephone Nephrology [place] [address] Tiffanie Cuello 03/30/2024 Telephone [facility] [place] [phone] Mikaela Pritchard, RN 03/29/2024 1:45 PM EDT Office Visit [facility] [place] [phone] Bk Contreras MD Left lumbar radiculopathy; SIMMONS (nonalcoholic steatohepatitis) 03/29/2024 Travel 03/22/2024 Travel 03/20/2024 Orders Only [place] [phone] Magdaleno Dia MD Hyperuricemia 03/10/2024 Telephone Cardiology at [address] Haley Leggett RN Medication Problem (Potential side effects reported by patient ) 02/21/2024 9:15 AM EDT - 02/21/2024 9:45 AM EDT Surgery Pain Management [place] [phone] Bk Contreras MD INJECTION, EPIDURAL, LUMBAR OR SACRAL (CAUDAL), WITH IMAGING GUIDANCE (WRVU 1.8) 02/21/2024 9:00 AM EDT Ancillary Procedure Pain Management [place] [phone] Bk Contreras MD 02/21/2024 8:44 AM EDT - 02/21/2024 10:00 AM EDT Hospital Encounter Pain Management [place] [phone] Bk Contreras MD Left lumbar radiculopathy Discharge Disposition: Home 02/18/2024 Orders Only [facility] [place] [phone] Bk Contreras MD 02/17/2024 Orders Only [facility] [place] [phone] Bk Contreras MD Left lumbar radiculopathy (Primary Dx) 02/17/2024 Telephone [facility] [place] [phone] Mikaela Pritchard RN 02/11/2024 4:55 PM EDT Laboratory Appointment Lab [address] [place] [address] 02/11/2024 3:15 PM EDT - 02/11/2024 3:45 PM EDT [place] [phone] Silvana Reyes MD Not Performed INJECTION, EPIDURAL, LUMBAR OR SACRAL (CAUDAL), WITH IMAGING GUIDANCE (WRVU 1.8) 02/11/2024 2:49 PM EDT - 02/11/2024 4:44 PM EDT Hospital [place] [phone] Silvana Reyes MD Left lumbar radiculopathy Discharge Disposition: Home 02/11/2024 Travel 02/11/2024 [place] [phone] Bk Contreras MD from Last 3 Months Immunizations Name Administration Dates Next Due Influenza (Fluzone HD) Triva lent High Dose 07/14/2019 Influenza Quadrivalent (FluA d) Adjuvanted 05/31/2020 Influenza Quadrivalent, Pres ervative Free 05/31/2020,07/26/2019,06/13/2018,2016,06/16/2016,07/11/2013 Moderna Covid-19 Monovalent 12Yr+ (Loom Checker 100mcg) 01/27/2021,12/30/2020 Pneumococcal Conjugate (Prevnar 13) 09/19/2020 Tdap 09/04/2017 Family History Medical History Relation Comments Diabetes Mother Celiac Disease Neg Hx Colorectal Cancer Neg Hx Esophageal Cancer Neg Hx Inflammatory Bowel Disease Neg Hx Pancreatic Cancer Neg Hx Stomach Cancer Neg Hx Relation Status Comments Mother Social History Tobacco Use Types Packs/Day Years Used Date Smoking Tobacco: Never Smokeless Tobacco: Never Tobacco Cessation:Counseling Given: Not Answered Comments:uses medical [facility] Alcohol Use Standard Drinks/Week Comments Not Currently [...] on file Sexual Orientation Not on file Last Filed Vital Signs Vital Sign Reading Time Taken Comments Blood Pressure 130/64 03/29/2024 2:10 PM EDT Pulse 72 03/29/2024 2:10 PM EDT Temperature 36.8 ??C (98.2 ??F) 01/18/2023 2:05 PM ED T Respiratory Rate 18 01/18/2023 4:40 PM EDT Oxygen Saturation 97% 03/29/2024 2:10 PM EDT Inhaled Oxygen Concentration - - Weight 75.3 kg (166 lb) 03/29/2024 2:10 PM EDT Height 160 cm (5' 3) 03/29/2024 2:10 PM EDT Body Mass Index 29.41 03/29/2024 2:10 PM EDT Plan of Treatment Upcoming Encounters Date Type Department Care Team (Latest Contact Info) Description 05/08/2024 10:30 AM EDT Hospital En[place] [address] Bk Contreras MD [facility] [place] [address] 05/08/2024 10:30 AM EDT - 05/08/2024 11:00 AM EDT [place] [phone] Bk Contreras MD [facility] [place] [address] INJECTION, ANESTHETIC AGENT AND/OR STEROID, TRANSFORAMINAL EPIDURAL, LUMBAR OR SACRAL, SINGLE LEVEL (WRVU 1.9) 05/12/2024 1:00 PM EDT Office Visit Cardiology at [address] [phone] Sadi Styles MD [facility] [place] [address] 05/29/2024 10:15 AM EDT TH Visit (TeleHealth) [facility] [place] [phone] Natalee Sanchez APRN [facility] [place], [place] [phone] Scheduled Procedures Name Priority Associated Diagnoses Date/Ti me INJECTION, ANESTHETIC AGENT AND/OR STEROID, TRANSFORAMINAL EPIDURAL, LUMBAR OR SACRAL, SINGLE LEVEL (WRVU 1.9) Left lumbar radiculopathy 05/08/2024 10:30 AM EDT Health Maintenance Due Date Last Done Comments CT Colonography 1953 Colonoscopy 1953 Colorectal Cancer Screening 1953 FIT DNA 1953 FIT 1953 Sigmoidoscopy (10 year) with FIT yearly 1953 Sigmoidoscopy 1953 DM Opthalmology Exam 1963 Breast Cancer Share Decision Needed 1993 Breast Cancer screening 1993 Zoster vaccine (1 of 2) 2003 Advance Directive 2008 Bone Density Scan 2018 Pneumoccocal Vaccine: 65+ (2 of 2 - PPSV23 or PCV20) 11/14/2020 09/19/2020 DM Hemoglobin A1c 6 month 11/14/20212020, 01/19/2021, 06/07/2020 Covid-19 Vaccine (4 - 2022-2 4 season) 2023 04/02/2022, 01/27/2021, 12/30/2020 Influenza (Flu) vaccine (1 o f 1 - Influenza standard series) 06/11/2024 05/31/2020, 05/31/2020, 07/26/2019, Additional history exists DM Creatinine yearly 11/16/2024 11/16/2023, 08/10/2023, 01/01/2023, Additional history exists Tetanus vaccine 09/04/2027 09/04/2017 Tdap adult Completed 09/04/2017 Hepatitis C Screening Completed 06/07/2020 Lipid Screening Discontinued 05/14/2021, 03/11, 02/08/2021, Additional history exists Procedures Procedure Name Priority Date/Time Associated Diagnosis Comments FILM LIBRARY STORAGE ONLY PAIN CLINIC C ARM Routine 02/21/2024 10:13 AM EDT Injection Dx/Ther Sbst Intrlmnr Lmbr/Sac W/Img Gdn ([id number]) 02/21/2024 9:47 AM EDT Left lumbar radiculopathy INJECTION, EPIDURAL, LUMBAR OR SACRAL (CAUDAL), WITH IMAGING GUIDANCE Routine 02/21/2024 8:44 AM EDT Left lumbar radiculopathy DIFFERENTIAL, AUTOMATED Routine 02/11/2024 5:01 PM EDT HEMOGRAM Routine 02/11/2024 5:01 PM EDT HC CBC,PLT & AUTO DIFF Routine 5:01 PM EDT PLATELET COUNT Routine 02/11/2024 5:01 PM EDT HC PARTIAL THROMBOPLASTIN TIME Routine 02/11/2024 5:01 PM EDT HC PROTHROMBIN TIME Routine 02/11/2024 5 :01 PM EDT INJECTION, EPIDURAL, LUMBAR OR SACRAL (CAUDAL), WITH IMAGING GUIDANCE Routine 02/11/2024 3:02 PM EDT Left lumbar radiculopathy BASIC METABOLIC PANEL (NON-FASTING) Routine 11/16/2023 HC VENIPUNCTURE Routine 05/14/2021 5:12 AM EDT HC HEMOGLOBIN A1C Routine 05/14/2021 5:1 2 AM EDT HC HEPATITIS C ANTIBODY Routine 06/07/2020 12:30 PM EDT Proteinuria, unspecified type from Last 3 Months or Most Recently Relevant to Health Maintenance Results * Film Library- Storage Only pain Clinic C-Arm (02/21/2024 10:13 AM EDT) Narrative RAD - 02/21/2024 10:13 AM EDT See PACS for result report. Bk Contreras MD IMG FILM LIBRARY ORD ERABLES [place], [place] * (ABNORMAL) Hemogram (02/11/2024 5:01 PM EDT) WBC 8.4 4.0 - 9.5 x10(3)/[facility] LABOR[facility] RBC 3.91(L) 4.00 - 5.21 x10(6)/[facility] Hemoglobin 12.6 11.7 - 15.5 g/dL [facility] Hematocrit 38.6 35.7 - 45.8 % [facility] MCV 98.7(H) 82.6 - 94.[address] [facility] MCH 32.2(H) 27.1 - 32.[address] [facility] MCHC 32.6 31.7 - 35.0 g/dL [facility] Platelets 171 145 - 357 x10(3)/[facility] LABOR[facility] RDWSD 46.5(H) 37.0 - 46.0 [facility]ORY RDWCV 13.0 11.5 - 14.1 % [facility] MPV 10.0 7.6 - 12.9 [facility]ORY nRBC % Auto 0.0 % [facility] nRBC Abs Auto 0.000 0.000 - 0.000 x10(3)/[facility] Blood 02/11/2024 5:01 PM EDT 02/11/2024 5:05 PM EDT Narrative Resulting Agency Comment Spec In Lab Forrest Bah MD HEMATOLOGY ORDERABL ES [facility] [place] [address] * Differential, Automated (02/11/2024 5:01 PM EDT) Neutrophils % 65.8 % [facility] Neutr Abs (ANC) 5.50 1.70 - 6.10 x10(3)/[facility] Lymphocytes % 25.0 % [facility] Lymphocytes Abs 2.1 0.9 - 3.2 x10(3)/[facility] Monocytes % 7.1 % [facility] Monocyte Abs 0.6 0.3 - 0.9 x10(3)/[facility] Eosinophils % 1.1 % [facility] Eosinophils Abs 0.1 0.0 - 0.4 x10(3)/[facility] Basophils % 0.5 % [facility] Basophils Abs 0.0 0.0 - 0.1 x10(3)/[facility] Immature Gran % 0.50 % [facility] Comment: Immature granulocytes(IG's)percentage and absolute count will include metamyelocytes, myelocytes, and promyelocytes. Blood smears from CBCs yielding IG's will be scanned manually for concordance. If this scan disagrees with the automated IG or if promyelocytes are noted, a manual differential will be performed. Anya Gran Abs 0.04 0.00 - 0.04 x10(3)/[facility] Blood 02/11/2024 5:01 PM EDT 02/11/2024 5:05 PM EDT Narrative Resulting Agency Comment Spec In Lab Forrest Bah MD HEMATOLOGY ORDERABL ES [facility] [place] [address] * APTT (02/11/2024 5:01 PM EDT) PTT 32 25 - [address] [facility] Comment: The PTT is NOT appropriate for heparin monitoring. Use the Anti-Xa level for heparin monitoring (HEP UFH) or LMWH monitoring (HEP LMW). A PTT less than 37 seconds generally indicates adequate hemostasis. Blood 02/11/2024 5:01 PM EDT 02/11/2024 5:05 PM EDT Narrative Resulting Agency Comment Spec In Lab Silvana Reyes MD HEMATOLOGY ORDERA BLES Performing Organization Address [facility] Co de Phone Number [facility] [place] [address] * Prothrombin Time (02/11/2024 5:01 PM EDT) PT 11.4 9.4 - 12.[address] [facility] INR 1.0 [facility] Comment: An INR <2.0 indicates adequate procoagulant activity for hemostasis in most patients without underlying bleeding disorders, though the INR may not adequately reflect hemostatic capacity in patients with liver disease and synthetic impairment. The recommended target INR range for therapeutic anticoagulation is 2.0 ? 3.0 for most applications, though lower and higher ranges may be appropriate depending on clinical circumstances. Blood 02/11/2024 5:01 PM EDT 02/11/2024 5:05 PM EDT Narrative Resulting Agency Comment Spec In Lab Silvana Reyes MD HEMATOLOGY ORDERA BLES Performing Organization Address City/[facility]/ZIP Co de Phone Number [facility] [place] [address] * Platelet count (02/11/2024 5:01 PM EDT) Platelets 185 145 - 357 x10(3)/mc L [facility] Plat Immature % 2.2 0.0 - 7.4 % [facility] Comment: Limitation of the Immature Platelet Fraction (IPF)-May be less reliable when the platelet count is less than 70o209/uL due to statistical imprecision. The IPF value provides an assessment of the Bone Marrow production status. ??It is useful in differentiating Thrombocytopenia caused by platelet destruction/consumption versus decreased production. It also helps to determine the imminent release of platelets and can be therefore a helpful parameter in Chemotherapy and Bone marrow transplant patients. ELEVATED IPF value: ?? When the bone marrow is in a state of over production such as when increased destruction and consumption are the underlying issue. ?? When the marrow is recovering post chemotherapy or bone marrow transplant. LOW to NORMAL IPF value: ?? When the bone marrow in not responding and is in a decreased state of production. References: [employer] The Clinical Value of the Immature Platelet Fraction (IPF) in Cell Recovery Document Number [id number] 03/2011 [employer] The Role of the Immature Platelet Fraction (IPF) in the Differential Diagnosis of Thrombocytopenia, Document [id number] V05 P05 Blood 02/11/2024 5:01 PM EDT 02/11/2024 5:05 PM EDT Narrative Resulting Agency Comment Spec In Lab Silvana Reyes MD HEMATOLOGY ORDERA BLES [facility] [place] [address] * Basic Metabolic Panel (non-fasting) (11/16/2023) Glucose Lvl 218 BUN 37 Creatinine 1.7 Estimated GFR 32.06 Sodium 137 Potassium 4.4 Chloride 101 CO2 27 Calcium 9.9 Anion Gap 9 Magnesium 2.0 mg/dL Blood 11/16/2023 Historical Provider CHEMISTRY ORDERAB LES * (ABNORMAL) Hemoglobin A1c (05/14/2021 5:12 AM EDT) Hemoglobin A1C 6.6(H) 4.3 - 5.6 % [facility] Comment: Reference Range: 4.3 - 5.6% 5.7 - 6.4% - Increased Risk of Developing Diabetes Mellitus >= 6.5% - Consistent with diagnosis of Diabetes Mellitus In the absence of hyperglycemia (i.e. plasma glucose > 200 mg/dL) or classic symptoms of hyperglycemia a repeat measurement of HbA1c should be performed on a separate sample to confirm the diagnosis. Diagnosis and Classification of Diabetes Mellitus, Diabetes Care 2013; 36: Suppl. 1, S67-74 Est Avg Gluc 144 mg/dL [facility] Comment: eAG equivalents for HbA1c percentages: HbA1c(%) ?eAG(mg/dL) 6.0 ?126 6.5 ?140 7.0 ?154 7.5 ?169 8.0 ?183 8.5 ?197 9.0 ?212 9.5 ?226 10.0 ? 240 Limitations: The eAG calculation has not been validated on women, individuals below 18 years old and above 70 years old, and individuals with hemoglobinopathies. Additional resources are available on the ADA website. Cristian ROBLERO, Juan Pablo J, Gina R, et al. ??Translating the A1C assay into estimated average glucose values. ??Diabetes Care 2008:31(8):2218-2816. Blood 05/14/2021 5:12 AM EDT 05/14/2021 5:14 AM EDT Narrative Resulting Agency Comment Spec In Lab Debbi Zimmer MD CHEMISTRY ORDERABLES [facility] [place] [address] * Lipid Panel (Reflex Direct LDL) (05/14/2021 5:12 AM EDT) Chol, Total 149 mg/dL [facility] Comment: Lower Risk: <200 mg/dL Average Risk: 200-239 mg/dL Higher Risk: >yq=704 mg/dL Triglycerides 269 mg/dL [facility] Comment: Average Risk/Lower Risk: <150 mg/dL Borderline High Risk: 150-199 mg/dL High Risk: 200-499 mg/dL Very High Risk: >is=125 mg/dL HDL 40 mg/dL [facility] Comment: Males: ?? Higher Risk: <40 mg/dL Females: ?? Higher Risk: <50 mg/dL LDL Cholesterol 55 mg/dL [facility] Comment: Lowest Risk: <100 mg/dL Lower Risk: 100-129 mg/dL Borderline High Risk: 130-159 mg/dL High Risk: 160-189 mg/dL Very High Risk: >xd=125 mg/dL Chol/HDL Ratio 3.[address] [facility] Lipid Interpretation See Note [facility] Comment: Lipid management should be guided by a patient? s ASCVD risk, goals and preferences. ACC/AHA Guidelines recommend high intensity statin if clinical ASCVD or LDL greater than or equal to 190 mg/dL. [email or web address] Adults aged 40-75 with LDL 70-189 mg/dL should have their 10 year ASCVD risk estimated with the ACC/AHA ASCVD risk inserter http://tools.acc.org/LCYYV-Wtbd-Wumfhxwhq/ Statin should be discussed if risk greater than or equal to 7.5% in non-diabetics. With diabetes, moderate intensity statin is recommended if risk less than 7.5%, high intensity if risk greater than or equal to 7.5%. Annual lipid monitoring on statins is not necessary. Evaluate secondary causes of Triglycerides greater than 500 mg/dL or LDL greater than 190 mg/dL: See table 6 of ACC/AHA Guideline. Lifestyle modification is a critical component of ASCVD risk reduction. Blood 05/14/2021 5:12 AM EDT 05/14/2021 5:13 AM EDT Narrative Resulting Agency Comment Spec In Lab Debbi Zimmer MD CHEMISTRY ORDERABLES Performing Organization Address City/[facility]/ZIP Co de Phone Number [facility] [place] [address] * Hepatitis C Antibody (06/07/2020 12:30 PM EDT) Hepatitis C Ab Negative Negative [facility] Blood specimen (specimen) 06/07/2020 12:30 PM EDT 06/07/2020 12:34 PM EDT Narrative Resulting Agency Comment Spec In Lab Magdaleno Dia MD IMMUNOLOGY ORDERABLE S Performing Organization Address [facility] Co de Phone Number [facility] [place] [address] from Last 3 Months or Most Recently Relevant to Health Maintenance Advance Directives * Attempt Cardiopulmonary Resuscitation - Inpatient (Latest Code Status on File) Date Activated Date Inactivated Comments 01/18/2023 1:39 PM 01/18/2023 7:21 PM Question Answer Comments Code Status decision made by: Patient * Attempt Cardiopulmonary Resuscitation - Inpatient Date Activated Date Inactivated Comments 05/13/2021 4:43 PM 05/15/2021 1:23 PM Question Answer Comments Code Status decision made by: Patient * Attempt Cardiopulmonary Resuscitation - Inpatient Date Activated Date Inactivated Comments 04/11/2021 3:55 PM 04/12/2021 6:14 PM Question Answer Comments Code Status decision made by: Patient * Attempt Cardiopulmonary Resuscitation - Inpatient Date Activated Date Inactivated Comments 04/11/2021 12:20 PM 04/11/2021 3:55 PM Question Answer Comments Code Status decision made by: Patient * Attempt Cardiopulmonary Resuscitation - Inpatient Date Activated Date Inactivated Comments 03/13/2021 7:03 AM 03/14/2021 4:34 AM Question Answer Comments Code Status decision made by: Patient Care Teams Architectural Engineer Relationship Specialty Start Date End Date Asia Gil DO [address] [place] [address] PCP - General Family Medicine 07/09/20
--- OUTSIDE RECORDS SUMMARY | 2024-05-02 12:04 | XMS_ITS | Encounter Summary ---
Author Organization [facility] Address [address] [place] [address] Care Team Providers Care Home Performance Laborer Name Role Phone Unknown, Provider MD Primary Care Provider Unknown, Provider Primary Care Provider [phone] Unknown, Provider MD Unavailable Encounter Details Date Type Department Care Team (Late st Contact Info) Description 09/25/2004 Results Only [facility] [place] [facility] [place] [facility] [address] [place] [address] Rita Fowler MD [address] [place] [address] [place] [address] Social History Tobacco Use Types Packs/Day Years [...] Date/Time Associated Diagnosis Comments SURGICAL PATHOLOGY Routine 09/25/2004 0:00 EST documented in this encounter Results * SURGICAL PATHOLOGY (09/25/2004 0:00 EST) Pathology Report: SURGICAL PATHOLOGY REPORT Reports generated via electronic interface contain original data; however they are lacking the format of the original report. Caution should be taken when reading/interpreti ng unformatted reports. Name: ? ANNA DEWEY I ? Accession #: ? [id number] ? : ? 1955 (Age: 49) ??F ? Collect Date: ? 09/25/2004 ? Location: ? [facility] ? Receive Date: ? 09/26/2004 ? Provider: RITA FOWLER MD Copy to: YVETTE FARAH DIESEL SERVICE JOURNEYMAN ? Final Pathologic Diagnosis: ? Ovary, left, resection: 1. ?Corpus luteal cyst. 2. ?Follicular cysts. 3. ?Surface inclusion cysts. 4. ?No evidence of endometriosis. Document reviewed and electronically signed by: Sukh Li MD Report ??Date: 09/29/2004 16:55 By the signature above, the attending physician certifies that he/she has personally conducted a gross and/or microscopic examination of the described specimens and rendered or confirmed the above diagnosis. Specimen(s) Received: ? Left ovary Clinical History: ? Chronic LLQ pain Gross Description: ? Received in formalin labelled Lee and left ovary is a wellington-white, partially fragmented, multilobulated ovary measuring 2.3 x 2.0 x 1.3 cm and weighs 4.10 grams. ??The cut surfaces have an eccentric 0.6 x 0.6 x 0.5 cm smooth-walled, cystic structure, which exudes a clear yellow fluid. ??No excrescences are grossly identified. ??The specimen is serially sectioned and entirely submitted as (A1) to (A4). ??(Iris Powers/kmm End of Report [facility] 09/25/2004 09/26/2004 15: 37 EST Rita Fowler MD PATHOLOGY ORDERABLES Performing Organization Address City/State/[facility] Co de Phone Number [facility] [address] [place] [address] documented in this encounter Visit Diagnoses Not on filedocumented in this encounter Care Teams Home Performance Laborer Relationship Specialty Start Date End Date Unknown, ProviderMD PCP - General 01/30/09 09/22/09 Unknown, ProviderMD PCP - General 09/23/09 03/22/16 Unknown, ProviderMD 09/23/09 documented as of this encounter
--- OUTSIDE RECORDS SUMMARY | 2024-05-02 12:04 | XMS_ITS | Encounter Summary ---
Author Organization [facility] Address [facility] [place] [address] Care Team Providers Care Teacher Name Role Phone Asia Gil DO Primary Care Provider [phone] Encounter Details Date Type Department Care Team (Late st Contact Info) Description 03/20/2024 Orders Only [place] [address] Magdaleno Dia MD [facility] [place] [address] Hyperuricemia Social History Tobacco Use Types Packs/Day Years Used Date Smoking Tobacco: Never Smokeless Tobacco: Never Comments:uses medical yumiko nader Alcohol Use Standard Drinks/Week Comments Not Currently 0 (1 standard drink = 0.6 oz pur e alcohol) 12 years ago [facility] Inpatient Questions Answer Date Recorded Prevent Contact [...] 10:30 AM EDT Hospital Encounter [place] [phone] Bk Contreras MD [facility] [place] [address] 05/08/2024 10:30 AM EDT - 05/08/2024 11:00 AM EDT Surgery [place] [phone] Bk Contreras MD [facility] [place] [address] INJECTION, ANESTHETIC AGENT AND/OR STEROID, TRANSFORAMINAL EPIDURAL, LUMBAR OR SACRAL, SINGLE LEVEL (WRVU 1.9) 05/12/2024 1:00 PM EDT Office Visit Cardiology at [place] [phone] Sadi Styles MD [facility] [place] [address] 05/29/2024 10:15 AM EDT TH Visit (TeleHealth) [place] [phone] Natalee Sanchez APRN [facility] [place] [address] Scheduled Orders Name Type Priority Associated Diagnoses Orde r Schedule Uric acid Lab Routine Hyperuricemia Expected: 03/20/2024, Expires: 09/19/2024 Scheduled Procedures Name Priority Associated Diagnoses Date/Ti me INJECTION, ANESTHETIC AGENT AND/OR STEROID, TRANSFORAMINAL EPIDURAL, LUMBAR OR SACRAL, SINGLE LEVEL (WRVU 1.9) Left lumbar radiculopathy 05/08/2024 10:30 AM EDT documented as of this encounter Visit Diagnoses Diagnosis Hyperuricemia Other abnormal blood chemistry Left lumbar radiculopathy Thoracic or lumbosacral neuritis or radiculitis, unspecified documented in this encounter Care Teams Teacher Relationship Specialty Start Date End Date Asia Gil DO [address] [place] [address] PCP - General Family Medicine 07/09/20 documented as of this encounter
--- OUTSIDE RECORDS SUMMARY | 2024-05-02 12:04 | XMS_ITS | Encounter Summary ---
Author Organization [facility] Address [address] [place] [address] Care Team Providers Care Tuckpointer Cleaner Caulker Name Role Phone Unknown, Provider MD Primary Care Provider [phone] Unknown, Provider Primary Care Provider [phone] Unknown, Provider MD Unavailable Encounter Details Date Type Department Care Team (Late st Contact Info) Description 07/28/2006 Results Only [facility] [place] conversion [address] [place] [address] Laci Bardales MD [address] [place] [address] Social History Tobacco Use Types Packs/Day Years [...] Date/Time Associated Diagnosis Comments SURGICAL PATHOLOGY Routine 07/28/2006 0:00 EDT documented in this encounter Results * SURGICAL PATHOLOGY (07/28/2006 0:00 EDT) Pathology Report: SURGICAL PATHOLOGY REPORT Reports generated via electronic interface contain original data; however they are lacking the format of the original report. Caution should be taken when reading/interpreti ng unformatted reports. Name: ? ANNA DEWEY I ? Accession #: ? [id number] ? : ? 1955 (Age: 51) ??F ? Collect Date: ? 07/28/2006 ? Location: ? [facility] ? Receive Date: ? 07/29/2006 ? Provider: LACI BARDALES MD Copy to: ? Final Pathologic Diagnosis: ? Endometrium, biopsy: 1. ?Disrupted proliferative endometrium. See comment. ?? 2. ? Rare fragments of benign endocervical tissue. Comment: ? The specimen is composed predominantly of disrupted endometrium with uniform bland proliferative glands with very little supporting endometrial stroma present. (Dr. Mccauley) ? Document reviewed and electronically signed by: Maria Eugenia Mccauley MD Report ??Date: 08/04/2006 08:33 By the signature above, the attending physician certifies that he/she has personally conducted a gross and/or microscopic examination of the described specimens and rendered or confirmed the above diagnosis. Specimen(s) Received: ? Embx Clinical History: ? LMP: 03/16 Gross Description: ? Received in formalin labelled Lee and embx are 1.0 x 1.0 x 0.3 cm of red-brown, hemorrhagic, mucinous soft tissue fragments. ??The specimen is entirely submitted in one cassette following filtration. (Iris Ramos)/naila End of Report [facility] 07/28/2006 07/29/2006 9:2 6 EDT Laci Bardales MD PATHOLOGY ORDERABLES [facility] [address] [place] [address] documented in this encounter Visit Diagnoses Not on filedocumented in this encounter Care Teams Tuckpointer Cleaner Caulker Relationship Specialty Start Date End Date Unknown, ProviderMD PCP - General 01/30/09 09/22/09 Unknown, ProviderMD PCP - General 09/23/09 03/22/16 Unknown, ProviderMD 09/23/09 documented as of this encounter
--- OUTSIDE RECORDS SUMMARY | 2024-05-02 12:04 | XMS_ITS | Encounter Summary ---
Author Organization [facility] Address [address] [place] [address] Care Team Providers Care Hvac Estimator Name Role Phone Unknown, Provider Primary Care Provider [phone] Unknown, Provider Unavailable Encounter Details Date Type Department Care Team (Latest Contact Info) Description 03/20/2016 8:53 EDT - 03/20/2016 23:59 EDT Hospital Encounter [address] [address] Unknown, Provider, Discharge Disposition: Home or Self Care Social History Tobacco Use Types Packs/Day Years Used Date Smoking Tobacco: Never Assessed Sex and Gender Information Value Date Recorded Sex Assigned at Not on file Gender Identity Female 09/01/2023 8:32 EST Sexual Orientation Not on file documented as of this encounter Discharge Disposition Disposition Code Departure Means Destination Home or Self Senior Living documented in this encounter Plan of Treatment Not on file documented as of this encounter Visit Diagnoses Not on filedocumented in this encounter Care Teams Hvac Estimator Relationship Specialty Start Date End Date Unknown, Provider, PCP - General 09/23/09 03/22/16 Unknown, ProviderMD 09/23/09 documented as of this encounter
--- OUTSIDE RECORDS SUMMARY | 2024-05-02 12:04 | XMS_ITS | Encounter Summary ---
[place] [address] Care Team Providers Care House Moving Supervisor Name Role Phone Asia Gil DO Primary Care Provider [phone] Reason for Visit * Auth/Cert (Routine) Specialty Diagnoses / Procedures Referred By Leonel t Referred To Contact Diagnoses Left lumbar radiculopathy Lt lumbar radiculopathy Procedures PRO INJECTION DX/THER SBST INTRLMNR LMBR/SAC W/IMG GDN INJECTION, EPIDURAL, LUMBAR OR SACRAL (CAUDAL), WITH IMAGING GUIDANCE (WRVU 1.8) Bk Contreras MD [facility] [place] [address] [facility] Referral ID Status Reason Start Date Expiration Date Visits Re quested Visits Authorized [id number] 1 1 Encounter Details Date Type Department Care Team (Late st Contact Info) Description 02/21/2024 9:15 AM EDT - 02/21/2024 9:45 AM EDT [place] [phone] Bk Contreras MD [facility] [address] PAIN [facility]IC [place], [place] [phone] INJECTION, EPIDURAL, LUMBAR OR SACRAL (CAUDAL), WITH IMAGING GUIDANCE (WRVU 1.8) Social History Tobacco Use Types Packs/Day Years [...] Rate - - Oxygen Saturation 100% 02/21/2024 8:55 AM EDT Inhaled Oxygen Concentration - - [...] 02/21/2024 Attending Physician: No att. providers found [facility] PREPROCEDURE HISTORY AND [...] Attending [facility]ician [facility] [place] [address] / documented in this encounter Miscellaneous Notes * Op Note - Bk Contreras MD - 02/21/2024 9:54 AM EDT Pain Management Operative Note Patient Name: Toyin Coley : [id number] MR#: [id number] Case Date: 02/21/2024 Surgeon: Surgeon(s) and Role: [...] epidural steroid injection by Asia Gil DO [address] [place] [address]. The patient complains of low back pain [...] Attending Physician [facility] [address] [address] / CC: Asia Gil, [address] [address] documented in this encounter Plan of Treatment Upcoming Encounters Date Type Department Care Team (Latest Contact Info) Description 05/08/2024 10:30 AM EDT Hospital En[place] [address] Bk Contreras MD [facility] [place] [address] 05/08/2024 10:30 AM EDT - 05/08/2024 11:00 AM EDT [place] [phone] Bk Contreras MD [facility] [place] [address] INJECTION, ANESTHETIC AGENT AND/OR STEROID, TRANSFORAMINAL EPIDURAL, LUMBAR OR SACRAL, SINGLE LEVEL (WRVU 1.9) 05/12/2024 1:00 PM EDT Office Visit Cardiology at [address] [address] Sadi Styles MD [facility] [place] [address] 05/29/2024 10:15 AM EDT TH Visit (TeleHealth) [place] [phone] Natalee Sanchez, FUNERAL COUNSELOR [facility] [place] [address] Scheduled Procedures Name Priority Associated Diagnoses Date/Ti me INJECTION, ANESTHETIC AGENT AND/OR STEROID, TRANSFORAMINAL EPIDURAL, LUMBAR OR SACRAL, SINGLE LEVEL (WRVU 1.9) Left lumbar radiculopathy 05/08/2024 10:30 AM EDT documented as of this encounter Procedures Procedure Name Priority Date/Time Associated Diagnosis Comments Injection Dx/Ther Sbst Intrlmnr Lmbr/Sac W/Img Gdn (97468) 02/21/2024 9:47 AM EDT Left lumbar radiculopathy [...] or radiculitis, unspecified documented in this encounter Administered Medications Inactive Administered Medications - up to 3 most recent administrations Medication Order MAR Action Action Date Dose Rate Site iohexoL (Omnipaque) (240 mg/mL) solution PRN, Starting on Wed02/21/24 at 0954, Until Wed02/21/24 at 1200, Intra-Operative (Intra-Procedure), Routine Given 02/21/2024 9:54 AM EDT 2 mLs lidocaine (pf) (Xylocaine) (10 mg/mL) 1% injection PRN, Starting on Wed02/21/24 at 0955, Until Wed02/21/24 at 1200, Intra-Operative (Intra-Procedure), Routine Given 02/21/2024 9:55 AM EDT 2 mLs methylPREDNISolone acetate (DEPO-Medrol) (80 mg/mL) injection PRN, Starting on Wed02/21/24 at 0955, Until Wed02/21/24 at 1200, Intra-Operative (Intra-Procedure), Routine Given 02/21/2024 9:55 AM EDT 80 mg documented in this encounter Active and Recently Administered Medications Times are shown in EDT. PRN Medication Order 02/19/2024 02/20/2024 02/21/2024 iohexoL (Omnipaque) (240 mg/mL) solution (CANCELED) PRN, Starting on Wed02/21/24 at 0954, Until Wed02/21/24 at 1200, Intra-Operative (Intra-Procedure), Routine 953 (Given - Provid er: Bk Contreras MD) lidocaine (pf) (Xylocaine) (10 mg/mL) 1% injection (CANCELED) PRN, Starting on Wed02/21/24 at 0955, Until Wed02/21/24 at 1200, Intra-Operative (Intra-Procedure), Routine 954 (Given - Provid er: Bk Contreras MD) methylPREDNISolone acetate (DEPO-Medrol) (80 mg/mL) injection (CANCELED) PRN, Starting on Wed02/21/24 at 0955, Until Wed02/21/24 at 1200, Intra-Operative (Intra-Procedure), Routine 954 (Given - Provid er: Bk Contreras MD - Comment: rebel) documented in this encounter Care Teams House Moving Supervisor Relationship Specialty Start Date End Date Asia Gil DO [address] [place] [address] PCP - General Family Medicine 07/09/20 documented as of this encounter
--- OUTSIDE RECORDS SUMMARY | 2024-05-02 12:04 | XMS_ITS | Encounter Summary ---
Author Organization [facility] [place] [address] Care Team Providers Care Adjunct Professor Of English Name Role Phone Asia Gil DO Primary Care Provider [phone] Encounter Details Date Type Department Care Team (Late st Contact Info) Description 02/17/2024 Orders Only [place] [phone] Bk Contreras MD [facility] [place] [address] Left lumbar radiculopathy (Primary Dx) Social History Tobacco Use Types [...] 10:30 AM EDT Hospital Encounter Pain Management [place] [phone] Bk Contreras MD [facility] [place] [address] 05/08/2024 10:30 AM EDT - 05/08/2024 11:00 AM EDT [place] [phone] Bk Contreras MD [facility] [place] [address] INJECTION, ANESTHETIC AGENT AND/OR STEROID, TRANSFORAMINAL EPIDURAL, LUMBAR OR SACRAL, SINGLE LEVEL (WRVU 1.9) 05/12/2024 1:00 PM EDT [place] [address] Sadi Styles MD [facility] [place] [address] 05/29/2024 10:15 AM EDT TH Visit (TeleHealth) [facility] [place] [phone] Natalee Sanchez, LIFE ENRICHMENT MANAGER [facility] [place] [address] Scheduled Procedures Name Priority Associated Diagnoses Date/Ti [...] unspecified documented in this encounter Care Teams Adjunct Professor Of English Relationship Specialty Start Date End Date Asia Gil DO [address] [place] [address] PCP - General Family Medicine 07/09/20 documented as of this encounter
--- OUTSIDE RECORDS SUMMARY | 2024-05-02 12:04 | XMS_ITS | Encounter Summary ---
Author Organization [facility] Address [address] [place] [address] Care Team Providers Care Political Science Chair Name Role Phone Mauro Phelps MD Primary Care Provider [phone] Unknown, Provider Unavailable [phone] Asia Gil DO Primary Care Provid er Encounter Details Date Type Department Care Team (Late st Contact Info) Description 04/04/2020 Lab Requisition [facility] Pathology & Laboratory Medicine - [facility] [address] [place] [address] Outr Resulting Lab, Provider Social History Tobacco [...] Procedure Name Priority Date/Time Associated Diagnosis Comments HSV (HERPES SIMPLEX VIRUS) MOLECULAR DETECTION, PCR Routine 04/04/2020 11:40 EDT documented in this encounter Results * HERPES SIMPLEX VIRUS MOLECULAR DETECTION, PCR (04/04/2020 11:40 EDT) Herpes Simplex Virus Molecular Detection 1, PCR Negative Negative 04/05/2020 7:32 EDT [facility] Herpes Simplex Virus Molecular Detection 2, PCR Negative Negative 04/05/2020 7:32 EDT [facility] Comment:This test was develo ped and its performance characteristics determined by [facility]. It has not been cleared or approved by the US Food and Drug Administration. FDA does not require this test to go through premarket FDA review. This test is used for clinical purposes. It should not be regarded as investigational or research. This laboratory is certified under the Clinical Laboratory Improvement Amendments (CLIA) as qualified to perform high complexity clinical laboratory testing. Fluid CEREBROSPINAL FLUID SPECIMEN / Unknown 04/04/2020 11:40 EDT 04/04/2020 22:43 EDT Provider Outr Resulting Lab MICROBIOLOGY - GENERAL ORDERABLES Performing Organization Address City/State/[facility] Co de Phone Number [facility] [address] [place] [address] documented in this encounter Visit Diagnoses Not on filedocumented in this encounter Care Teams Political Science Chair Relationship Specialty Start Date End Date Mauro Phelps MD PCP - General 03/23/16 08/31/23 Asia Gil DO [address] [place] [address] PCP - General 09/01/23 Unknown, ProviderMD 09/23/09 documented as of this encounter
--- OUTSIDE RECORDS SUMMARY | 2024-05-02 12:04 | XMS_ITS | Encounter Summary ---
Author Organization [facility] Address [address] [place] [address] Care Team Providers Care Vessel Slag Worker Name Role Phone Mauro Phelps MD Primary Care Provider [phone] Unknown, Provider MD Unavailable [phone] Asia Gil DO Primary Care Provid er Encounter Details Date Type Department Care Team (Late st Contact Info) Description 03/31/2020 Lab Requisition [facility] Pathology & Laboratory Medicine - [facility] [address] [place] [address] Outr Resulting Lab, Provider Social History Tobacco [...] Comments ZZCOVID-19 TEST [facility] PCR Today 03/30/2020 23:30 EDT COVID-19 TESTING Routine 03/30/2020 23:3 0 EDT documented in this encounter Results * COVID-19 TEST [facility] PCR (03/30/2020 23:30 EDT) Swab ENTIRE NASOPHARYNX / Unknown 03/30/2020 23:30 EDT 03/31/2020 8:12 EDT Provider Outr Resulting Lab MICROBIOLOGY - GENERAL ORDERABLES Performing Organization Address [facility] Co de Phone Number [facility] [address] [place] [address] * COVID-19 TESTING (03/30/2020 23:30 EDT) COVID-19 rt-PCR Result Negative Negative 03/31/2020 11:41 EDT [facility] Comment: This test has not [...] history, and epidemiological information. Performed on the [employer] Fusion instrument Performing Lab [facility] 03/31/2020 11:41 EDT [facility] Swab 03/30/2020 23:3 0 EDT 03/31/2020 8:12 EDT Provider Outr Resulting Lab MICROBIOLOGY - GENERAL ORDERABLES Performing Organization Address City/[facility]/ZIP Co de Phone Number [facility] [address] [place] [address] documented in this encounter Visit Diagnoses Not on filedocumented in this encounter Care Teams Vessel Slag Worker Relationship Specialty Start Date End Date Mauro Phelps MD PCP - General 03/23/16 08/31/23 Asia Gil DO [facility] [address] [place] [address] PCP - General 09/01/23 Unknown, Provider, 09/23/09 documented as of this encounter
--- OUTSIDE RECORDS SUMMARY | 2024-05-02 12:04 | XMS_ITS | Encounter Summary ---
Author Organization [facility] Address [address] [place] [address] Care Team Providers Care Pick Up Name Role Phone Unknown, Provider MD Primary Care Provider Unknown, Provider Primary Care Provider [phone] Unknown, Provider MD Unavailable Encounter Details Date Type Department Care Team (Late st Contact Info) Description 11/07/2004 Results Only [facility] [place] [facility] [address] [place] [address] Jaime Aguayo DPM [address] [place] [phone] Social History Tobacco Use Types Packs/Day Years [...] Date/Time Associated Diagnosis Comments SURGICAL PATHOLOGY Routine 11/07/2004 0:00 EST documented in this encounter Results * SURGICAL PATHOLOGY (11/07/2004 0:00 EST) Pathology Report: SURGICAL PATHOLOGY REPORT Reports generated via electronic interface contain original data; however they are lacking the format of the original report. Caution should be taken when reading/interpreting unformatted reports. Name: ? ANNA DEWEY I ? Accession #: ? [id number] ? : ? 1955 (Age: 49) ??F ? Collect Date: ? 11/07/2004 ? Location: ? [facility] ? Receive Date: ? 11/07/2004 ? Provider: JAIME AGUAYO DPM Copy to: YVETTE FARAH [employer] CHAIR ? Final Pathologic Diagnosis: ? 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 ??See comment. Comment: ? This case was reviewed at the intradepartmental consultation conference on 11/11/04. ??(Dr. Phan)/[facility] Document reviewed and electronically signed by: VIOLET PHAN MD Report ??Date: 11/11/2004 16:09 By the signature above, the attending physician certifies that he/she has personally conducted a gross and/or microscopic examination of the described specimens and rendered or confirmed the above diagnosis. Specimen(s) Received: ? Neuroma 2nd left metatarsal Clinical History: ? Symptomatic neuroma left 2nd intermetatarsal space Gross Description: ? Received in formalin labelled Lee and neuroma 2nd metatarsal left foot are two wellington-white, firm, fibrous tissue fragments measuring 0.7 x 0.6 x 0.3 cm and 1.2 x 0.8 x 0.5 cm. ??The cut surfaces of the larger tissue are wellington-yellow to white, firm and fibrous, with a focal area of hemorrhage. ??No definitive nodule is identified. ??The smaller tissue is submitted intact as (A1). ??The larger tissue is longitudinally bisected and entirely submitted as (A2). ??(Iris Ramos-REAGAN)/lgk End of Report [facility] 11/07/2004 11/07/2004 15: 23 EST Jaime Aguayo DPM PATHOLOGY ORDERA BLES Performing Organization Address City/State/[facility] Co de Phone Number [facility] [address] [place] [address] documented in this encounter Visit Diagnoses Not on filedocumented in this encounter Care Teams Pick Up Relationship Specialty Start Date End Date Unknown, Provider, PCP - General 01/30/09 09/22/09 Unknown, ProviderMD PCP - General 09/23/09 03/22/16 Unknown, ProviderMD 09/23/09 documented as of this encounter
--- OUTSIDE RECORDS SUMMARY | 2024-05-02 12:04 | XMS_ITS | Encounter Summary ---
Author Organization [facility] Address [address] [place] [address] Care Team Providers Care Connection Worker Name Role Phone Unknown, Provider Primary Care Provider [phone] Bryan Phelps MD Primary Care Provider [phone] Unknown, Provider Unavailable [phone] Encounter Details Date Type Department Care Team (Late st Contact Info) Description 03/20/2016 Results Only [facility] [phone] Kassie Lambert, DO [address] [place] [address] Social History Tobacco Use Types Packs/Day Years [...] Date/Time Associated Diagnosis Comments SURGICAL PATHOLOGY Routine 03/20/2016 18 :07 EDT documented in this encounter Results * SURGICAL PATHOLOGY (03/20/2016 18:07 EDT) Pathology Report: SURGICAL PATHOLOGY REPORT Reports generated via electronic interface contain original data; however they are lacking the format of the original report. Caution should be taken when reading/interpret ing unformatted reports. Name: ? ANNA LION I ? Accession #: ? [id number] ? : ? 1955 (Age: 60) ??F ? Collect Date: ? 03/20/2016 ? Location: ? [facility] ? Receive Date: ? 03/23/2016 ? Provider: KASSIE LAMBERT DO Copy to: BRYAN PHELPS MD ? Final Pathologic Diagnosis: COLON, CECUM, POLYP, BIOPSY: - Tubular adenoma. Document reviewed and electronically signed by: CALIXTO JAIME MD Report ??Date: 03/25/2016 17:00 By the signature above, the attending physician certifies that he/she has personally conducted a gross and/or microscopic examination of the described specimens and rendered or confirmed the above diagnosis. Specimen(s) Received: Cecal polyp Clinical History: Screening Gross Description: ? Received in formalin labelled with proper patient identification (initials P, L) and cecal polyp is a single pink-wellington tissue fragment (0.3 x 0.3 x 0.2 cm). Submitted intact in block 1. Shani Leonard 03/24/2016 8:11 AM End of Report [facility] 03/20/2016 18:0 7 EDT 03/23/2016 18:07 EDT Kassie Lambert DO PATHOLOGY ORDERABLES [facility] [address] [place] [address] documented in this encounter Visit Diagnoses Not on filedocumented in this encounter Care Teams Connection Worker Relationship Specialty Start Date End Date Unknown, Provider, PCP - General 09/23/09 03/22/16 Bryan Phelps MD PCP - General 03/23/16 08/31/23 Unknown, Provider, 09/23/09 documented as of this encounter
--- OUTSIDE RECORDS SUMMARY | 2024-05-02 12:04 | XMS_ITS | Encounter Summary ---
Author Organization [facility] Address [address] [place] [address] Care Team Providers Care Pile Driving Technician Name Role Phone Unknown, Provider MD Primary Care Provider [phone] Unknown, Provider Primary Care Provider [phone] Unknown, Provider Unavailable Encounter Details Date Type Department Care Team (Late st Contact Info) Description 02/28/2007 Results Only [facility] [place] [facility] [address] [place] [address] Laci Bardales MD [address] [place] [phone] Social History Tobacco Use Types Packs/Day [...] Priority Date/Time Associated Diagnosis Comments CYTOPATHOLOGY Routine 02/28/2007 0:00 EDT documented in this encounter Results * CYTOPATHOLOGY (02/28/2007 0:00 EDT) Pathology Report: CYTOPATHOLOGY REPORT Reports generated via electronic interface contain original data; however they are lacking the format of the original report. Caution should be taken when reading/interpreti ng unformatted reports. Name: ? ANNA DEWEY I ? Accession #: ? [id number] : ? 1955 (Age: 51) ??F ?Collect Date: ? 02/28/2007 Location: ? [facility] ? Receive Date: ? 03/02/2007 Provider: ?LACI BARDALES MD Copy to: ?ORTIZ WONG MD ? Specimen/Source: ?ThinPrep Pap Test, Cervix/Endocervix, processed on [employer] ThinPrep Imaging System, with manual evaluation Last Menstrual Period: ? 01/29/07 Treatment History: ? Miscellaneous treatment: + endometrial ablation Other: ? HPVA - HPV testing requested if ASC-US on the current ThinPrep Pap test. ? SPECIMEN ADEQUACY ? Satisfactory for Evaluation - transformation zone component present GENERAL CATEGORIZATION ? Negative for Intraepithelial Lesion or Malignancy ? Document reviewed and electronically signed by: ? GERRI Lanier(ASCP) ? Report Date: ??03/04/2007 10:37 End of Report [facility] 02/28/2007 03/02/2007 Laci Bardales MD PATHOLOGY ORDERABLES [facility] [address] [place] [address] documented in this encounter Visit Diagnoses Not on filedocumented in this encounter Care Teams Pile Driving Technician Relationship Specialty Start Date End Date Unknown, Provider, PCP - General 01/30/09 09/22/09 Unknown, Provider, PCP - General 09/23/09 03/22/16 Unknown, Provider, 09/23/09 documented as of this encounter
--- OUTSIDE RECORDS SUMMARY | 2024-05-02 12:05 | XMS_ITS | Encounter Summary ---
[place] [address] Care Team Providers Care Acetylene Burner Name Role Phone Asia Gil DO Primary Care Provider [phone] Reason for Visit * Reason Comments Establish Care BILAT FOOT/ANKLE DENIA N - NEUROPATHY? TENDONITIS? * Consultation (Routine) - Authorized Specialty Diagnoses / Procedures Referred By Leonel chin Referred To Contact Orthopaedics Diagnoses Hypertrophy of bone, left ankle and foot Pain in right foot Pain in left foot Posterior tibial tendinitis of left leg Peripheral vascular disease, unspecified Tarsal tunnel syndrome, left lower limb Other enthesopathy of unspecified foot and ankle 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), left ankle Achilles tendinitis, left leg Asia Gil, DO [address] [place] [address] [facility] [address] [place] [phone] Referral ID Status Reason Start Date Expiration Date Visits Requested Visits Authorized [id number] Authorized Consult, Test & Treat PCP Updated and/or Approved 3 08/22/2024 6 6 Encounter Details Date Type Department Care Team (Late st Contact Info) Description 09/28/2023 8:00 AM EST Office [place] [address] Morris Salas PA [facility] [place] [address] Chronic left-sided low back pain with bilateral sciatica; Other spondylosis with radiculopathy, lumbar region; Posterior tibial tendon dysfunction Social History Tobacco Use Types Packs/Day Years Used Date Smoking Tobacco: Never Smokeless Tobacco: Never Comments:uses medical [employer] Alcohol Use Standard Drinks/Week Comments Not Asked 0 (1 standard drink = 0.6 oz pur e alcohol) 12 years ago [facility] Inpatient Questions Answer Date Recorded [...] Sign Reading Time Taken Comments Blood Pressure - - Pulse - - Temperature - - Respiratory Rate - - Oxygen Saturation - - Inhaled Oxygen Concentration - - Weight 74.8 kg (165 lb) 09/28/2023 8:03 AM EST Height 160 cm (5' 3) 09/28/2023 8:03 AM EST Body Mass Index 29.23 09/28/2023 8:03 AM EST documented in this encounter Progress Notes * Morris Salas PA - 09/28/2023 8:00 AM EST Images from the original note were not included. PATIENT NAME: Toyin Coley AGE: 68 y.o. MR#: [id number] DATE OF VISIT: 09/28/2023 DATE OF INJURY/ONSET: 9 months ago. STAFF: Morris Salas PA-C CHIEF COMPLAINT: left foot pain over the navicular and PTT HISTORY OF PRESENT ILLNESS: Ms. Coley is a 68 y.o. female who comes into clinic today for evaluation of left foot pain ove rthe navicular and PTT. She sits and massages these areas for alleviation.She reports this pain has been going on for over 9 months. She has been told she has neuropathy that is causing the pain but she doesn't feel this is the same type of pain. She feels that her foot feels better when she keeps it elevated. It is worse when she has been standing on it for long periodsof time during the day. She feels the pain is worse at night and this pain interferes with her sleep. She reports she had an oxycodone prescription form our department years ago which did help but she did not get a refill for it. She feels her low back pain is well managed but does mention she has piriformis syndrome on the right side that causes her to be more dependent on the left side which exacerbates the pain. She reports she has been to physical therapy for posterior tibial tendonitis andhas performed calf stretches without relief of her symptoms. Medications and Allergies were reviewed in eD-H PAST MEDICAL HX: Past Medical History: Diagnosis Date CKD (chronic kidney disease) 04/05/2020 Delirium 04/05/2020 Diabetes mellitus type 2, uncomplicated 05/14/2014 Hx-TIA (transient ischemic attack) 05/14/2014 Hyperlipidemia 05/28/2014 Off statin due to foot pain side effect Hypertension 05/28/2014 Restless legs syndrome (RLS) 04/05/2020 Patient Active Problem List Diagnosis Code GERD (gastroesophageal reflux disease) K21.9 Environmental allergies Z91.09 Diabetes mellitus type 2, uncomplicated E11.9 Hx-TIA (transient ischemic attack) Z86.73 Hyperlipidemia E78.5 Hypertension I10 Restless legs syndrome (RLS) G25.81 CKD (chronic kidney disease) N18.9 Delirium R41.0 Anxiety F41.9 Diabetic neuropathy E11.40 Nonalcoholic steatohepatitis K75.81 Cystic duct calculus K80.20 RUQ pain R10.11 PONV (postoperative nausea and vomiting) R11.2, Z98.890 Pancreatic pseudocyst K86.3 Acute exacerbation of congestive heart failure I50.9 HFrEF (heart failure with reduced ejection fraction) I50.20 ASCVD (arteriosclerotic cardiovascular disease) I25.10 Pancreatitis K85.90 Pancreatic fluid collection with possible abscess K85.90 Anemia of chronic disease D63.8 Acute blood loss anemia D62 Unstable angina I20.0 PVD (peripheral vascular disease) with claudication I73.9 Moderate mitral stenosis I05.0 Acute kidney injury N17.9 Acute pulmonary edema J81.0 Chronic pain disorder G89.4 Depression F32.A Elevated troponin I level R79.89 Generalized edema R60.1 Hypoxemia R09.02 Iron deficiency anemia D50.9 Leukocytosis D72.829 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, K74.60 Neuropathy G62.9 Obstructive sleep apnea G47.33 Pain in both feet M79.671, M79.672 Pulmonary atelectasis J98.11 Restlessness and agitation R45.1 Retained stone fragments Z18.83 Retroperitoneal abscess K68.19 Shortness of breath R06.02 Stage 3b chronic kidney disease N18.32 History of endoscopic retrograde cholangiopancreatography Z98.890 Stressful life event affecting family Z63.79 Tachycardia R00.0 PAST SURGICAL HX: Past Surgical History: Procedure Laterality Date CT GUIDED DRAIN PANCREATIC/PERIPANCREATIC 02/20/2021 CT Guided Drain Pancreatic/Peripancreatic 02/20/2021 Mauro Thomas P, DO [facility] RAD CAT SCAN IR DRAIN CHECK/CHANGE/REMOVE 03/13/2021 IR Drain Check/Change/Remove 03/13/2021 Chris Jamil MD [facility] INTERVENTIONL RAD PRO ENDOSCOPIC US EXAM, ESOPH N/A 01/18/2023 UPPER EUS- ENDOSCOPIC ULTRASOUND (WRVU 3.47) performed by Jordan Dowling MD at [facility] ENDOSCOPY PRO ERCP,DIAGNOSTIC N/A 01/17/2021 ERCP performed by Eliel Leigh MD at [facility] ENDOSCOPY PRO UP GI ENDOSCOPY, REMV TUMOR, SNARE 01/18/2023 EGD, W REMOVAL TUMOR/POLYPS/LESIONS BY SNARE TECHNIQUE (WRVU 3.47) performed by Jordan Dowling MD at [facility] ENDOSCOPY PRO UPPER GI ENDOSCOPY, BIOPSY N/A 01/18/2023 EGD WITH BIOPSY (WRVU 2.39) performed by Jordan Dowling MD at [facility] ENDOSCOPY FAMILY HX: Family History Problem Relation Age of Onset Colorectal Cancer Neg Hx Inflammatory Bowel Disease Neg Hx Celiac Disease Neg Hx Esophageal Cancer Neg Hx Stomach Cancer Neg Hx Pancreatic Cancer Neg Hx SOCIAL HX: Social History Occupational History Not on file Tobacco Use Smoking status: Never Smokeless tobacco: Never Tobacco comments: uses medical [employer] Vaping Use Vaping Use: Never used Substance and Sexual Activity Alcohol use: Not on file Comment: 12 years ago Drug use: Yes Frequency: 7.0 times per week Types: Marijuana Comment: Medical Sexual activity: Not Currently ROS: Pertinent items are noted in HPI. Constitutional: Denies fevers, chills, weight change HEENT: Denies headache, vision changes, neck pain, difficulty swallowing Endocrine: Denies malaise/lethargy, skin changes or temperature intolerance Respiratory: Denies shortness of breath, cough Cardiac: Denies chest pain, palpitations GI: denies abdominal pain, nausea, vomiting Skin: Denies new rashes or lesions Neuro: no numbness, tingling, or weakness Psychological: denies suicidal ideation Musculoskeletal: as above in HPI No data to display No data to display No data to display PHYSICAL EXAM: Ms. Coley is a 68 y.o. female General appearance: in no acute distress, alert, cooperative Psych: cooperative with exam, appropriate Head: normocephalic, atraumatic EENT: EOMI grossly intact Neck: supple, trachea midline Cardiac: regular rate and rhythm by peripheral pulse Lungs: no extra work of breathing Musculoskeletal: Left foot and ankle Inspection: Midfoot arch: neutral Hindfoot: neutral The skin over the foot and ankle is pale in color, warm and well perfused without calluses or lesions present. ROM: Dorsiflexion with knee extended: 0 degrees Dorsiflexion with knee flexed: 10 degrees Plantarflexion: 40 degrees Inversion: 25 degrees Eversion: 15 degrees Palpation: On palpation the patient has extreme pain med even to light touch over the distribution of the PTT No TTP at the ankle joint line No TTP at the Medial malleolus No TTP at the Lateral malleolus No TTP at the subtalar joint TTP at the achilles tendon TTP at the achilles tendon insertion Significant TTP over the PTT and spring ligament even to light touch. Expressed shooting pains on light touch. No TTP at the Subtalar joint No TTP at the TN joint No TTP at the CC joint No TTP over the cuneiform bones or cuboid No TTP over the tarsometatarsal joints No TTP over the metatarsals No TTP over the MTP joints No TTP over the phalanges No TTP over Sesamoid bones Strength: 5/5 and no pain with Ankle dorsiflexion: 5/5 and no pain with Ankle plantarflexion: 5/5 and pain on Ankle inversion over the PTT. 5/5 and no pain or subluxation of the peroneals with ankle eversion with the toes pointed 1st MTP flexion: 5/5 and no pain 1st MTP extension: 5/5 and no pain Lesser toes flexion: 5/5 Lesser toes extension: 5/5 Special tests: Anterior drawer test: negative without guarding Bilateral leg heel raise: patient was able to perform without pain or instability Neurovascular: Brisk capillary refill at the distal most aspect of the hallux and lesser toes Posterior tibial artery: not palpable Dorsalis pedis artery: not palpable Light touch from SW monofilament. Sural Nerve: Sensation lacking to light touch Saphenous Nerve: Sensation lacking to light and gross touch Tibial Nerve: Sensation dampened to light and gross touch Deep peroneal Nerve: Sensation dampened to light and gross touch Superficial peroneal Nerve: Sensation intact to light and gross touch DIAGNOSTIC STUDIES: Pending XR's ASSESSMENT: Right os navicular with L4 L5 dermatomal dysesthesia. PLAN: At this time the patients pain is likely multifactorial. She feels she has been passed off to otherproviders and is frustrated with her care. She has seen vascular surgery for her PAD who rx'd ASA 81 mg daily after her most recent ADRY's. She has been to PT for PTTD which did not help much of her pain. She does have hammertoes and a history of low back pain so I would like to get an XR of her lumbar spine to evaluate lumbar spondylosis as a possible etiology of her symptoms. She has brought an MRI with her today that will be uploaded and I will evaluate these results to determine if there is any mechanical cause of her foot pain from the accessory navicular. While she does have TTP over theaccessory navicular she also has pain to light touch over this area which clues me into this being a neurogenic etiology with a possible L4 L5 nerve root impingement. The patient expressed agreement with and understanding of this plan of care. The patient understands to contact us if they have any other questions or concerns. The above documentation was completed using [employer] voice recognition software. Morris Salas PA-C, [facility] Department of Orthopaedics [facility] Pager [phone] documented in this encounter Plan of Treatment Upcoming Encounters Date Type Department Care Team (Latest Contact Info) Description 05/08/2024 10:30 AM EDT Hospital Encounter Pain Management [place] [phone] Bk Contreras MD [facility] [place] [address] 05/08/2024 10:30 AM EDT - 05/08/2024 11:00 AM EDT Surgery Pain Management [place] [phone] Bk Contreras MD [facility] [place] [address] INJECTION, ANESTHETIC AGENT AND/OR STEROID, TRANSFORAMINAL EPIDURAL, LUMBAR OR SACRAL, SINGLE LEVEL (WRVU 1.9) 05/12/2024 1:00 PM EDT Office Visit Cardiology at [place] [phone] Sadi Styles MD [facility] [place] [address] 05/29/2024 10:15 AM EDT TH Visit (TeleHealth) [place] [address] Natalee Sanchez APRN [facility] [place] [address] Scheduled Procedures Name Priority Associated Diagnoses Date/Ti me INJECTION, ANESTHETIC AGENT AND/OR STEROID, TRANSFORAMINAL EPIDURAL, LUMBAR OR SACRAL, SINGLE LEVEL (WRVU 1.9) Left lumbar radiculopathy 05/08/2024 10:30 AM EDT documented as of this encounter Results * XR Lumbar Spine 2 Or 3 Views (Generic) (09/28/2023 8:56 AM EST) Anatomical Region Laterality Modality L-spine N/A Digital Radiogra phy Impressions 09/28/2023 11:14 AM EST Progression of degenerative disc disease and facet arthropathy lower lumbar spine. Thank you for letting us participate in the care of this patient. ??If you are a health care provider and have any questions regarding this report, please contact the number below. ??For patients who have questions please contact the health care center manager that requested your imaging first. ? Electronically signed by: Heavenly Moore MD, [facility] ([phone]), at 09/28/2023 11:14 AM Narrative 09/28/2023 11:14 AM EST EXAMINATION: XR LUMBAR SPINE 2 OR 3 VIEWS (GENERIC) CLINICAL HISTORY: ??history of herniation ?? (as entered by ordering provider in the order requisition) TECHNIQUE: AP and lateral views of the lumbar spine. COMPARISON: CT abdomen and pelvis 03/13/2021 FINDINGS: The last rib-bearing vertebral body corresponds to T12. There are 5 nonrib-bearing lumbar-type vertebral bodies. No listhesis. Progression of disc space narrowing at L5-S1.. Progression of facet arthropathy at all levels between L3 and S1. There is no focal vertebral body height loss. Surgical clips project over the right upper quadrant. There is atherosclerotic calcification of the abdominal aorta. Procedure Note Heavenly Moore MD - 09/28/2023 EXAMINATION: XR LUMBAR SPINE 2 OR 3 VIEWS (GENERIC) CLINICAL HISTORY: history of herniation (as entered by orderingprovider in the order requisition) TECHNIQUE: AP and lateral views of the lumbar spine. COMPARISON: CT abdomen and pelvis 03/13/2021 FINDINGS: The last rib-bearing vertebral body corresponds to T12. There are 5 nonrib-bearing lumbar-type vertebral bodies. No listhesis. Progression of disc space narrowing at L5-S1.. Progression of facet arthropathy at all levels between L3 and S1. There is no focal vertebral body height loss. Surgical clips project over the right upper quadrant. There is atherosclerotic calcification of the abdominal aorta. IMPRESSION Progression of degenerative disc disease and facet arthropathy lowerlumbar spine. Thank you for letting us participate in the care of this patient. If youare a health care provider and have any questions regarding this report,please contact the number below. For patients who have questions please contactthe health care center manager that requested your imaging first. Electronically signed by: Heavenly Moore MD, [facility]([phone]), at 09/28/2023 11:14 AM Amy Herring MD IMG DX ORDERABLES documented in this encounter Visit Diagnoses Diagnosis Chronic left-sided low back pain with bilateral sciatica Other spondylosis with radiculopathy, lumbar region Posterior tibial tendon dysfunction Other disorders of synovium, tendon, and bursa Chronic left-sided low back pain with bilateral sciatica Left lumbar radiculopathy Thoracic or lumbosacral neuritis or radiculitis, unspecified documented in this encounter Care Teams Acetylene Burner Relationship Specialty Start Date End Date Asia Gil DO [address] [place] [address] PCP - General Family Medicine 07/09/20 documented as of this encounter
--- OUTSIDE RECORDS SUMMARY | 2024-05-02 12:05 | XMS_ITS | Encounter Summary ---
Author Organization [facility] [place] [address] Care Team Providers Care Publications Manager Name Role Phone Asia Gil DO Primary Care Provider [phone]- [phone] Reason for Visit * Auth/Cert (Routine) Specialty Diagnoses / Procedures Referred By Leonel chin Referred To Contact Diagnoses Left lumbar radiculopathy lumbar radiculopathy Procedures PRO INJECTION DX/THER SBST INTRLMNR LMBR/SAC W/IMG GDN PRO INJECTION DX/THER SBST INTRLMNR LMBR/SAC W/IMG GDN INJECTION, EPIDURAL, LUMBAR OR SACRAL (CAUDAL), WITH IMAGING GUIDANCE (WRVU 1.8) Lumbar or Sacral Epidural Steroid Inj Sacral (Caudal) (21723) Silvana Reyes MD [facility] [place] [address] [facility] Referral ID Status Reason Start Date Expiration Date Visits Re quested Visits Authorized [id number] 1 1 Encounter Details Date Type Department Care Team (Latest Contact Info) Description 02/11/2024 2:49 PM EDT - 02/11/2024 4:44 PM EDT Hospital [place] [phone] Silvana Reyes MD [facility] [place] [address] Left lumbar radiculopathy Discharge Disposition: Home Social [...] Sign Reading Time Taken Comments Blood Pressure 139/58 02/11/2024 3:14 PM EDT Pulse 61 02/11/2024 3:14 PM EDT Temperature - - Respiratory Rate - - Oxygen Saturation 100% 02/11/2024 3:14 PM EDT Inhaled Oxygen Concentration - - Weight 75.3 kg (166 lb) 02/11/2024 3:14 PM EDT Height 160 cm (5' 3) 02/11/2024 3:14 PM EDT Body Mass Index 29.41 02/11/2024 3:14 PM EDT documented in this encounter Medications at Time of Discharge Medication Sig Dispensed Refills Start Date End Date diclofenac (Voltaren) 1 % Gel Apply topically [...] 01/27/2021 04/04/2024 documented as of this encounter Progress Notes * Silvana Reyes MD - 02/11/2024 4:23 PM EDT Upon chart review day of the procedure it was noted that the patient had Hx of liver cirrhosis. Recent labs reviewed and found last coags done several years ago showed INR of > 1.2. According to the ASHLEY guidelines this is not a safe INR for any neuraxial procedures. She has had no recent coags.I spoke with referring provider per this and she has not realized she had prior abnormal coags, and therefore these were not ordered. I went into the room with Dr Filippo Bah (fellow) to discuss that unfortunately we would need cancel her procedure today and explained the reasoning of a possible epidural bleeding and the potential catastrophic consequences. As well as that if the lab work wassafe to proceed I would make sure I got her rescheduled within the next two weeks. She asked if we could do the labs now. I told her unfortunately we could not do the needed labs in the office, and they would need to be done today or on the day of her procedure but that unfortunately we would not be able to ge the results in time for a procedure today. The patient then began sobbing then screaming. You fucking people, You fucking people you have no idea what I have been through. I tried to reassure her that this delay in her care was understandably frustrating and that the fact that this happened is not acceptable and that I had spoken to her provider who apologized for the oversight. Marylouthen proceeded to to start yelling saying Jericadonna Moreno she is Fucking useless. She has not done anything to help me for a year and a half. I again tried to reassure her that if the labs showed it was safe to proceed I would make sure this was completed within the next 2 weeks. At that point she began punching the wall behind her in the clinic room. I told her that behavior was not acceptable. She continued to do this. At this point I found her behavior to be aggressive and physically threatening. I told her we were going to leave the room. I then left the room to call security, call social director and alert a extension service supervisor. She kept pounding on the wall so loudly that employees for the adjacent department (infusion) came running down the hallway as they were concerned there was an emergencyand the pounding was distressing their patients. I asked them to return to their department and that security had been called. The practice managed and department mgr were not on site to discuss this case. While looking for a extension service supervisor patient came walking down the quintero and screaming profanity(exact words not recalled) and that she would not leave until a she could talk to a extension service supervisor and make someone pay for this. This was witnessed by DRESSMAKER OR TAILOR, scheduling staff, social director and fellow. I told her I would attempt to find a extension service supervisor but that she needed to return to her clinic room. Atthis point security had not arrived. I then called my direct extension service supervisor (Dr Luis A Contreras) to discuss the situation while awaiting security. He was not on campus but agreed to see this patient and I informed the patient (security now arrived and debriefed) that the chief of our department was on the way and would speak to her further. She agreed to this. She did at some point prior to the arrival ofDr Contreras, the patient requested to have her daughter come back. Not knowing that if that would lead to further escalation or threatening behavior and in discussion with security and social work I decided against allowing this. Dr Contreras debriefed again on arrival and he met with the patient at that point. I was not involved in her care after that time. documented in this encounter H&P Notes * Filippo Bah MD - 02/11/2024 8:58 AM EDT Patient Name: Toyin Coley Patient Age: 68 y.o. Birthdate: 1955 Admit date: (Not on file) Attending Physician: Silvana Reyes MD [facility] PREPROCEDURE HISTORY AND PHYSICAL HPI: Toyin Coley is a 68 y.o. female who presents today for: Procedure: bilateral Lumbar Epidural Steroid Injection - Interlaminar L4-L5 The history is obtained from the patient, and I have reviewed medical records provided by the referring physician, located in the electronic medical record to fill in gaps in the patient's recollection of events, treatments and outcomes. Patient with history of liver cirrhosis who presents to clinic today for LESI. Upon chart reviewed,patient was noted to have an abnormal INR of 1.3 in 03/20/2021. Unfortunately, there is no recent INR in chart. Given this history and risk for epidural hematoma, procedure was canceled due to unknown coagulable status. Dr. Reyes and Leslie were both present in the room during interview with patient- We try to explain to patient that we will need update labs (PT/INR, aPPT, Plts) prior to proceeding with LESI. We also informed her that once these labs were obtain and if normal, we would then reschedule her within thenext two weeks ( nearest availability). Patient immediately became hysterical and scream fuck my pain provider, she's fucking useless, I fucking hate her. We tried to apologize for the inconvenience and deescalated the situation; however, patient was inconsolable, she became both physically violent and threatening. She started pounding and punching aggressively on the wall and Screamed fuck you people fuck you people. Given concerns for our safely, we left the room. security was called. Please see Dr. Reyes's note for further details. Filippo Bah MD Pain Fellow, PGY5 [facility] [place] [address] / documented in this encounter Miscellaneous Notes * Op Note - Silvana Reyes MD - 02/11/2024 3:15 PM EDT Pain Management Operative Note Patient Name: Toyin Coley : [id number] MR#: [id number] Case Date: 02/11/2024 Surgeon: Surgeon(s) and Role: * Silvana Reyes MD - Primary * Filippo Bah MD - Fellow - Assisting Present on Admission: Left lumbar radiculopathy Postoperative diagnosis: \ Left lumbar radiculopathy Procedure(s) (LRB): INJECTION, EPIDURAL, LUMBAR OR SACRAL (CAUDAL), WITH IMAGING GUIDANCE (WRVU 1.8) (Midline) Lumbar or Sacral Epidural Steroid Inj Sacral (Caudal) (29731) (Midline) Procedure not performed, please see notes for cancellation. documented in this encounter Plan of Treatment Upcoming Encounters Date Type Department Care Team (Latest Contact Info) Description 05/08/2024 10:30 AM EDT Hospital [place] [phone] Bk Contreras MD [facility] [place] [address] 05/08/2024 10:30 AM EDT - 05/08/2024 11:00 AM EDT [place] [phone] Bk Contreras MD [facility] [place] [address] INJECTION, ANESTHETIC AGENT AND/OR STEROID, TRANSFORAMINAL EPIDURAL, LUMBAR OR SACRAL, SINGLE LEVEL (WRVU 1.9) 05/12/2024 1:00 PM EDT Office Visit Cardiology at [place] [phone] Sadi Styles MD [facility] [place] [address] 05/29/2024 10:15 AM EDT TH Visit (TeleHealth) [facility] [place] [phone] Natalee Sanchez APRN [facility] [place] [address] Scheduled Procedures Name Priority Associated Diagnoses Date/Ti me INJECTION, ANESTHETIC AGENT AND/OR STEROID, TRANSFORAMINAL EPIDURAL, LUMBAR OR SACRAL, SINGLE LEVEL (WRVU 1.9) Left lumbar radiculopathy 05/08/2024 10:30 AM EDT documented as of this encounter Procedures Procedure Name Priority Date/Time Associated Diagnosis Comments HEMOGRAM Routine 02/11/2024 5:01 PM EDT DIFFERENTIAL, AUTOMATED Routine 02/11/2024 5:01 PM EDT HC PARTIAL THROMBOPLASTIN TIME Routine 02/11/2024 5:01 PM EDT HC PROTHROMBIN TIME Routine 02/11/2024 5 :01 PM EDT PLATELET COUNT Routine 02/11/2024 5:01 PM EDT HC CBC,PLT & AUTO DIFF Routine 5:01 PM EDT INJECTION, EPIDURAL, LUMBAR OR SACRAL (CAUDAL), WITH IMAGING GUIDANCE Routine 02/11/2024 3:02 PM EDT Left lumbar radiculopathy documented in this encounter Results * Differential, Automated (02/11/2024 5:01 PM EDT) Neutrophils % 65.8 % [facility] Neutr Abs (ANC) 5.50 1.70 - 6.10 x10(3)/[facility] Lymphocytes % 25.0 % [facility] Lymphocytes Abs 2.1 0.9 - 3.2 x10(3)/[facility] Monocytes % 7.1 % [facility] Monocyte Abs 0.6 0.3 - 0.9 x10(3)/[facility] Eosinophils % 1.1 % [facility] Eosinophils Abs 0.1 0.0 - 0.4 x10(3)/[facility] Basophils % 0.5 % [facility] Basophils Abs 0.0 0.0 - 0.1 x10(3)/[facility] Immature Gran % 0.50 % [facility] Comment: Immature granulocytes(IG's)percentage and absolute count will include metamyelocytes, myelocytes, and promyelocytes. Blood smears from CBCs yielding IG's will be scanned manually for concordance. If this scan disagrees with the automated IG or if promyelocytes are noted, a manual differential will be performed. Anya Gran Abs 0.04 0.00 - 0.04 x10(3)/[facility] Blood 02/11/2024 5:01 PM EDT 02/11/2024 5:05 PM EDT Narrative Resulting Agency Comment Spec In Lab Filippo Bah MD HEMATOLOGY ORDERABL ES [facility] [place] [address] * (ABNORMAL) Hemogram (02/11/2024 5:01 PM EDT) WBC 8.4 4.0 - 9.5 x10(3)/[facility] RBC 3.91(L) 4.00 - 5.21 x10(6)/[facility] Hemoglobin 12.6 11.7 - 15.5 g/dL [facility] Hematocrit 38.6 35.7 - 45.8 % [facility] MCV 98.7(H) 82.6 - 94.4 fL [facility] MCH 32.2(H) 27.1 - 32.0 pg [facility] MCHC 32.6 31.7 - 35.0 g/dL [facility] Platelets 171 145 - 357 x10(3)/[facility] RDWSD 46.5(H) 37.0 - 46.0 [facility] RDWCV 13.0 11.5 - 14.1 % [facility] MPV 10.0 7.6 - 12.9 [facility] nRBC % Auto 0.0 % [facility] nRBC Abs Auto 0.000 0.000 - 0.000 x10(3)/[facility] Blood 02/11/2024 5:01 PM EDT 02/11/2024 5:05 PM EDT Narrative Resulting Agency Comment Spec In Lab Filippo Bah MD HEMATOLOGY ORDERABL ES Performing Organization Address City/[facility]/ZIP Co de Phone Number [facility] [place] [address] * Platelet count (02/11/2024 5:01 PM EDT) Platelets 185 145 - 357 x10(3)/mc L [facility] Plat Immature % 2.2 0.0 - 7.4 % [facility] Comment: Limitation of the Immature Platelet Fraction (IPF)-May be less reliable when the platelet count is less than 70y918/uL due to statistical imprecision. The IPF value [...] in a decreased state of production. References: [employer] The Clinical Value of the Immature Platelet Fraction (IPF) in Cell Recovery Document Number 10-1143 03/2011 [employer] The Role of the Immature Platelet Fraction (IPF) in the Differential Diagnosis of Thrombocytopenia, Document [id number] V05 P0514 Blood 02/11/2024 5:01 PM EDT 02/11/2024 5:05 PM EDT Narrative Resulting Agency Comment Spec In Lab Silvana Reyes MD HEMATOLOGY ORDERA BLES Performing Organization Address City/[facility]/ZIP Co de Phone Number [facility] [place] [address] * APTT (02/11/2024 5:01 PM EDT) PTT 32 25 - 37 sec [facility] Comment: The PTT is NOT appropriate for heparin monitoring. Use the Anti-Xa level for heparin monitoring (HEP UFH) or LMWH monitoring (HEP LMW). A PTT less than 37 seconds generally indicates adequate hemostasis. Blood 02/11/2024 5:01 PM EDT 02/11/2024 5:05 PM EDT Narrative Resulting Agency Comment Spec In Lab Silvana Reyes MD HEMATOLOGY ORDERA BLES Performing Organization Address [facility] de Phone Number [facility] [place] [address] * Prothrombin Time (02/11/2024 5:01 PM EDT) PT 11.4 9.4 - 12.5 sec [facility] INR 1.0 [facility] Comment: An INR <2.0 indicates [...] MD HEMATOLOGY ORDERA BLES Performing Organization Address [facility] Co de Phone Number [facility] [place] [address] documented in this encounter Visit Diagnoses Diagnosis Left lumbar radiculopathy- Primary Thoracic or lumbosacral neuritis or radiculitis, unspecified Left lumbar radiculopathy Thoracic or lumbosacral neuritis or radiculitis, unspecified documented in this encounter Admitting Diagnoses Diagnosis Left lumbar radiculopathy Thoracic or lumbosacral neuritis or radiculitis, unspecified documented in this encounter Care Teams Publications Manager Relationship Specialty Start Date End Date Asia Gil DO [address] [place] [address] PCP - General Family Medicine 07/09/20 documented as of this encounter
--- OUTSIDE RECORDS SUMMARY | 2024-05-02 12:05 | XMS_ITS | Encounter Summary ---
[place] [address] Care Team Providers Care Windmill Mechanic Name Role Phone Jeffery Asiarafaela Dunn DO Primary Care Provider [phone]- [phone] Encounter Details Date Type Department Care Team (Late st Contact Info) Description 08/30/2023 Ancillary Procedure [place] [phone] Amy Herring MD [facility] [address] [place] [address] Social History Tobacco Use Types Packs/Day Years Used Date Smoking Tobacco: Never Smokeless Tobacco: Never Comments:uses medical yumiko nader Alcohol Use Standard Drinks/Week Comments Not Asked 0 (1 standard drink = 0.6 oz pur e alcohol) 12 years ago [facility] Inpatient Questions Answer Date [...] 10:30 AM EDT Hospital Encounter [place] [phone] Bk Contreras MD [facility] [place] [address] 05/08/2024 10:30 AM EDT - 05/08/2024 11:00 AM EDT Surgery [place] [phone] Bk Contreras MD [facility] [place] [address] INJECTION, ANESTHETIC AGENT AND/OR STEROID, TRANSFORAMINAL EPIDURAL, LUMBAR OR SACRAL, SINGLE LEVEL (WRVU 1.9) 05/12/2024 1:00 PM EDT Office Visit Cardiology at [place] [phone] Sadi Styles MD [facility] [place] [address] 05/29/2024 10:15 AM EDT TH Visit (TeleHealth) [place] [phone] Natalee Sanchez, [employer]NIFER UP [facility] [place] [address] Scheduled Procedures Name Priority Associated Diagnoses Date/Ti me INJECTION, ANESTHETIC AGENT AND/OR STEROID, TRANSFORAMINAL EPIDURAL, LUMBAR OR SACRAL, SINGLE LEVEL (WRVU 1.9) Left lumbar radiculopathy 05/08/2024 10:30 AM EDT documented as of this encounter Procedures Procedure Name Priority Date/Time Associated Diagnosis Comments FILM LIBRARY STORAGE ONLY MR ANKLE Routine 08/30/2023 12:00 AM EST documented in this encounter Results * Film Library- Storage Only MR Ankle (08/30/2023 12:00 AM EST) Narrative RAD - 09/28/2023 9:31 AM EST This exam is auto-finalizing. It's purpose is for storage only. Amy Herring MD IMG FILM LIBRARY ORD ERABLES [place], [place] documented in this encounter Visit Diagnoses Not on filedocumented in this encounter Care Teams Windmill Mechanic Relationship Specialty Start Date End Date Asia Gil DO [address] [facility] [address] PCP - General Family Medicine 07/09/20 documented as of this encounter
--- OUTSIDE RECORDS SUMMARY | 2024-05-02 12:05 | XMS_ITS | Encounter Summary ---
Author Organization [facility] Address [facility] [place] [address] Care Team Providers Care Back Up Worker Name Role Phone Asia Gil DO Primary Care Provider [phone]- [phone] Encounter Details Date Type Department Care Team (Latest Contact Info) Description 08/10/2023 4:00 PM EDT Office Visit Nephrology Hypertension at [facility] [place] [address] Magdaleno Dia MD [facility] [place] [address] Chronic kidney disease, unspecified CKD stage Social History Tobacco Use Types Packs/Day Years [...] Sign Reading Time Taken Comments Blood Pressure 127/46 08/10/2023 3:55 PM EDT Pulse 73 08/10/2023 3:55 PM EDT Temperature - - Respiratory Rate - - Oxygen Saturation - - Inhaled Oxygen Concentration - - Weight 77.1 kg (170 lb) 08/10/2023 3:55 PM EDT Height 160 cm (5' 3) 08/10/2023 3:55 PM EDT Body Mass Index 30.11 08/10/2023 3:55 PM EDT documented in this encounter Progress Notes * Magdaleno Dia MD - 08/10/2023 4:00 PM EDT PATIENT: Toyin Coley : 1955 Assessment/Plan: #Chronic Kidney disease Stage liley stage III/A2-3: CR 1.78 mg/dl -> eGFR ml/min 30mL/min per external labs in November 2022. Of note BUN to creatinine ratio 29 suggestive of some element of azotemia. No significant proteinuria per microalbumin or protein to creatinine ratio patient does have eGFR fluctuation reflective of hemodynamic pattern over the previous several years we have than the stage III range. Surveillance MRI without concerning findings Potassium well-controlled at 4.5 mmol/L. Significant neuropathy. Reports occasional NSAID use. History of Garcia cirrhosis appears well compensated. Patient taking PPI no evidence of pyuria. Plan: Continue to encourage good p.o. intake/hydration. Avoid nephrotoxins and announce any changeswith urination habits. Given absence of significant proteinuria believe it is reasonable to remain off of RAAS inhibition Empagliflozin 10 mg lisinopril 2.5 mg twice daily. Empagliflozin is very expensive for patient and she is currently in the donut phase of her coverage she is likely going to hold this medicine for the time being and we discussed that most bang for renal protective block is from her lisinopril. [place]add on uric acid #Hemodynamics Hypertension well controlled blood pressure 127/46 Encourage patient to continue home blood pressure monitoring Antihypertensives: Lisinopril 2.5 mg twice daily, metoprolol 50 mg, torsemide 20 mg. Volume Status: Patient appears euvolemic Patient appears well compensated from a cardiopulmonary standpoint. Significant coronary artery disease patient is on aspirin, beta-caridad and high intensity statin. #Hemoglobin Most recent hemoglobin 12.2 g/dL. Iron stores are acceptable Goal Hgb 10-12g/dl, Ferritin>100ng/ml, TSAT>20% #Acid/Base status Most recent Bicarb 23 mmol/L not consistent with acidosis. Would Add NaHCO3 if serum bicarb persistently < 22mmol/l #Bone Mineral Health PTH 131 PG per mL calcium and phosphorus are acceptable vitamin D slightly low will prescribe cholecalciferol 2000 units daily Goal and stage 3 PTH: 35-70 pg/ml Phos 2.7-4.6 Ca 8.5-10.5mg/dl Renal Clinic Follow-Up Plan: 6 months Past Medical History: Diagnosis Date CKD (chronic kidney disease) 04/05/2020 Delirium 04/05/2020 Diabetes mellitus type 2, uncomplicated 05/14/2014 Hx-TIA (transient ischemic attack) 05/14/2014 Hyperlipidemia 05/28/2014 Off statin due to foot pain side effect Hypertension 05/28/2014 Restless legs syndrome (RLS) 04/05/2020 Past Surgical History: Procedure Laterality Date CT GUIDED DRAIN PANCREATIC/PERIPANCREATIC 02/20/2021 CT Guided Drain Pancreatic/Peripancreatic 02/20/2021 Mauro Thomas, DO [facility] RAD CAT SCAN IR DRAIN CHECK/CHANGE/REMOVE 03/13/2021 IR Drain Check/Change/Remove 03/13/2021 Chris Jamil MD [facility] INTERVENTIONL RAD PRO ENDOSCOPIC US EXAM, ESOPH N/A 01/18/2023 UPPER EUS- ENDOSCOPIC ULTRASOUND (WRVU 3.47) performed by Jordan Dowling MD at [facility] ENDOSCOPY PRO ERCP,DIAGNOSTIC N/A 01/17/2021 ERCP performed by Eliel Leigh MD at [facility] ENDOSCOPY PRO UP GI ENDOSCOPY, REMV TUMOR, SNARE 01/18/2023 EGD, W REMOVAL TUMOR/POLYPS/LESIONS BY SNARE TECHNIQUE (WRVU 3.47) performed by Jordan Dowling MD at [facility] ENDOSCOPY PRO UPPER GI ENDOSCOPY, BIOPSY N/A 01/18/2023 EGD WITH BIOPSY (WRVU 2.39) performed by Jordan Dowling MD at [facility] ENDOSCOPY Family History Problem Relation Age of Onset Colorectal Cancer Neg Hx Inflammatory Bowel Disease Neg Hx Celiac Disease Neg Hx Esophageal Cancer Neg Hx Stomach Cancer Neg Hx Pancreatic Cancer Neg Hx Social History Social History Narrative Lives by herself with one daughter who lives ~9 miles away from her. Responsible for her own ADLs. Manages her own medications Outpatient medications: Current Outpatient Medications on File Prior to Visit Medication Sig Dispense Refill amitriptyline (Elavil) 25 mg Tablet Take 75 mg by mouth nightly. OneTouch Ultra Test Strip CHECK BLOOD SUGAR DAILY diclofenac (Voltaren) 1 % Gel APPLY 4 GRAMS TOPICALLY TO THE AFFECTED AREA FOUR TIMES DAILY. CONTINUE TOPICAL NSAID FOR FOOT PAIN Jardiance 10 mg Tablet Take 10 mg by mouth daily. torsemide (Demadex) 10 mg Tablet Take 10 mg by mouth daily. isosorbide mononitrate CR (Imdur) 30 mg Tablet Sustained Release 24 hr Take 1 tablet by mouth everymorning. 30 tablet 12 nitroGLYcerin (Nitrostat) 0.4 mg Tablet, Sublingual Take 0.4 mg by mouth as needed. ondansetron (Zofran) 4 mg Tablet Take 4 mg by mouth as needed. Lantus Solostar U-100 Insulin pen 11 Units. OneTouch Ultra2 Meter Misc USE DIRECTED TO TEST BLOOD GLUCOSE OneTouch Delica Plus Lancet 33 gauge Misc USE TO TEST BLOOD SUGAR DAILY aspirin 81 mg Tablet, Chewable Take 81 mg by mouth daily. 90 tablet 3 melatonin 3 mg Tablet Take 2 tablets by mouth nightly. 180 tablet 3 traZODone (Desyrel) 50 mg Tablet Take 0.5 tablets by mouth nightly. 45 tablet 3 oxyCODONE (Roxicodone) 5 mg Tablet Take 1 tablet by mouth every 8 hours as needed for Pain. 15 tablet 0 polyethylene glycoL (Miralax) 17 gram Powder in Packet Take 17 g by mouth daily. (Patient taking differently: Take 17 g by mouth as needed. Every other day) 14 each 0 acetaminophen (Tylenol) 325 mg Tablet Take 2 tablets by mouth every 4 hours as needed for Pain. 30 tablet 1 calcium carbonate (Tums) 200 mg calcium (500 mg) Tablet, Chewable Take 1-2 tablets by mouth every 4hours as needed for Heartburn. gabapentin (Neurontin) 100 mg Capsule Take 2 capsules by mouth 2 times daily. (Patient taking differently: Take 300 mg by mouth 3 times daily.) 90 capsule 12 atorvastatin (Lipitor) 40 mg Tablet Take 1 tablet by mouth every evening. 90 tablet 3 metoprolol succinate XL (Toprol-XL) 50 mg Tablet Sustained Release 24 hr Take 1 tablet by mouth daily. 30 tablet 12 pantoprazole EC (Protonix) 40 mg Tablet, Delayed Release (E.C.) Take 1 tablet by mouth daily. 90 tablet 3 No current facility-administered medications on file prior to visit. MEDICATIONS: Allergies Allergen Reactions Benzodiazepines Other (See Comments) Paradoxical reaction to benzodiazepines House Dust Hydrocodone-Acetaminophen Itching Metoclopramide Mold Extracts Pollen Extracts Propoxyphene Hcl Nausea And Vomiting Unknown [Unclassified Drug] Most environmental allergies: grass, workman, trees,pollen ROS: Constitutional - No fevers, chills, weight loss Skin - No rash or itchy skin HEENT - No headaches, visual changes, oral mucosa dryness Resp - No cough, shortness of breath CV - No chest pain, difficulty breathing lying flat, leg swelling GI - No nausea, vomiting,change in bowel habits/abdominal pain - No change in urine output. No pain urinating or blood in urine. Neuro - No weakness. No numbness/ tingling in extremities. MSK-ongoing pain in left ankle PHYSICAL EXAM: Last value Temperature Heart Rate Blood Pressure Respiratory Rate SpO2 STUDIES: Labs: CBC: Recent Labs 08/10/23 1400 01/01/23 1034 WBC 9.4 7.5 HGB 13.4 12.0 PLATELET 184 190 Chemistry: Recent Labs 08/10/23 1400 01/01/23 1034 NA 140 141 K 4.7 4.6 CL 103 103 CO2 23 26 BUN 53* 38* CREATININE 1.78* 1.55* GLUCOSE 108 175 Recent Labs 08/10/23 1400 01/01/23 1034 CALCIUM 9.8 10.1 PHOS 3.8 3.4 LFT's: No results for input(s): BILITOT, BILIDIR, ALBUMIN, ALKPHOS, ALT, AST in the last 7068 hours. Time attestation: 30 minutes spent on encounter greater than 50% in direct breastfeeding peer counselor with patient Magdaleno Dia MD, MPH Section of Nephrology #[id number] documented in this encounter Plan of Treatment Upcoming Encounters Date Type Department Care Team (Latest Contact Info) Description 05/08/2024 10:30 AM EDT Hospital Encounter [place] [address] Bk Contreras MD [facility] [place] [address] 05/08/2024 10:30 AM EDT - 05/08/2024 11:00 AM EDT Surgery Pain Management [place] [address] Bk Contreras MD [facility] [place] [address] INJECTION, ANESTHETIC AGENT AND/OR STEROID, TRANSFORAMINAL EPIDURAL, LUMBAR OR SACRAL, SINGLE LEVEL (WRVU 1.9) 05/12/2024 1:00 PM EDT Office Visit Cardiology at [place] [address] Sadi Styles MD [facility] [place] [address] 05/29/2024 10:15 AM EDT TH Visit (TeleHealth) [place] [address] Natalee Sanchez APRN [facility] [place] [address] Scheduled Procedures Name Priority Associated Diagnoses Date/Ti me INJECTION, ANESTHETIC AGENT AND/OR STEROID, TRANSFORAMINAL EPIDURAL, LUMBAR OR SACRAL, SINGLE LEVEL (WRVU 1.9) Left lumbar radiculopathy 05/08/2024 10:30 AM EDT documented as of this encounter Visit Diagnoses Diagnosis Chronic kidney disease, unspecified CKD stage Left lumbar radiculopathy Thoracic or lumbosacral neuritis or radiculitis, unspecified documented in this encounter Care Teams Back Up Worker Relationship Specialty Start Date End Date Asia Gil DO [address] [place] [address] PCP - General Family Medicine 07/09/20 documented as of this encounter
--- OUTSIDE RECORDS SUMMARY | 2024-05-02 12:05 | XMS_ITS | Encounter Summary ---
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 Lumbar DDD w/LE sx/XR 09/28/23 in e- Morris Salas PA [facility] [place] [address] [facility] [place] [place] [address] Referral ID Status Reason Start Date Expiration Date Visits Requested Visits Authorized [id number] Authorized Consult, Test & Treat 09/29/2023 09/28/2024 1 1 Encounter Details Date Type Department Care Team (Late st Contact Info) Description 09/29/2023 Telephone [place] [address] Morris Salas PA [facility] [place] [address] Social History Tobacco Use Types Packs/Day Years [...] encounter Miscellaneous Notes * Telephone Encounter - Morris Salas PA - 09/29/2023 12:46 PM EST I spoke with the patient about her imaging. She has significant facet arthropathy in the lumbar spine which is likely generating her pain. She does have ome edema within the PTT but not enough inflammation or tenderness to produce the amount of pain she is in. She is curious if there is anything else she can do for the pain because her Tylenol is not working. I would like pain and spine to weigh in on this and I will also chat with our radiologist and Dr. Herring about the MRI results for further recommendations. documented in this encounter Plan of Treatment Upcoming Encounters Date Type Department Care Team (Latest Contact Info) Description 05/08/2024 10:30 AM EDT Hospital [place] [address] Bk Contreras MD [facility] [place] [address] 05/08/2024 10:30 AM EDT - 05/08/2024 11:00 AM EDT [place] [address] Bk Contreras MD [facility] [place] [address] INJECTION, ANESTHETIC AGENT AND/OR STEROID, TRANSFORAMINAL EPIDURAL, LUMBAR OR SACRAL, SINGLE LEVEL (WRVU 1.9) 05/12/2024 1:00 PM EDT Office Visit Cardiology at [address] [phone] Sadi Styles MD [facility] [place] [address] 05/29/2024 10:15 AM EDT TH Visit (TeleHealth) [facility] [place] [phone] Natalee Sanchez APRN [facility] [place] [address] Scheduled Procedures Name Priority Associated Diagnoses Date/Ti me INJECTION, ANESTHETIC AGENT AND/OR STEROID, TRANSFORAMINAL EPIDURAL, LUMBAR OR SACRAL, SINGLE LEVEL (WRVU 1.9) Left lumbar radiculopathy 05/08/2024 10:30 AM EDT Scheduled Referrals Name Type Priority Associated Diagnoses Orde r Schedule Referral to Pain and Spine Center (Internal only) Outpatient Referral Routine Other spondylosis with radiculopathy, 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
--- OUTSIDE RECORDS SUMMARY | 2024-05-02 12:05 | XMS_ITS | Encounter Summary ---
Author Organization [facility] [place] [address] Care Team Providers Care Charter And Tour Bus Driver Name Role Phone Asia Gil DO Primary Care Provider +1- [phone] Encounter Details Date Type Department Care Team (Late st Contact Info) Description 10/26/2023 Telephone [place] [phone] Morris Salas PA [facility] DR ORTHOPA[place] [address] Social History Tobacco Use Types Packs/Day Years [...] Telephone Encounter - Morris Salas PA - 10/26/2023 12:40 PM EST I spoke with the patient about her MRI results and explained that it is difficult to diagnose tarsal tunnel syndrome from an MRI only and that an EMG would be needed to diagnose this condition. She explained that she did have an EMG done this morning and that the report said that it was difficult because of her peripheral neuropathy to tell if she has tarsal tunnel syndrome and that the current scan did not show lower back involvement but at the EMG could not rule out the lower back as a possible etiology. Asked her to send over the EMG results to us so that we can review these further. documented in this encounter Plan of Treatment Upcoming Encounters Date Type Department Care Team (Latest Contact Info) Description 05/08/2024 10:30 AM EDT Hospital Encounter [place] [address] Bk Contreras MD [facility] [place] [address] 05/08/2024 10:30 AM EDT - 05/08/2024 11:00 AM EDT Surgery [place] [phone] Bk Contreras MD [facility] [place] [address] INJECTION, ANESTHETIC AGENT AND/OR STEROID, TRANSFORAMINAL EPIDURAL, LUMBAR OR SACRAL, SINGLE LEVEL (WRVU 1.9) 05/12/2024 1:00 PM EDT Office Visit Cardiology at [address] [phone] Sadi Styles MD [facility] [place] [address] 05/29/2024 10:15 AM EDT TH Visit (TeleHealth) [facility] [place] [phone] Natalee Sanchez, PROGRAM STRATEGIST [facility] [place] [address] Scheduled Procedures Name Priority Associated Diagnoses Date/Ti me INJECTION, ANESTHETIC AGENT AND/OR STEROID, TRANSFORAMINAL EPIDURAL, LUMBAR OR SACRAL, SINGLE LEVEL (WRVU 1.9) Left lumbar radiculopathy 05/08/2024 10:30 AM EDT documented as of this encounter Visit Diagnoses Not on filedocumented in this encounter Care Teams Charter And Tour Bus Driver Relationship Specialty Start Date End Date Asia Gil DO [address] [place] [address] PCP - General Family Medicine 07/09/20 documented as of this encounter
--- OUTSIDE RECORDS SUMMARY | 2024-05-02 12:05 | XMS_ITS | Encounter Summary ---
Author Organization [facility] [place] [address] Care Team Providers Care Golf Club Weighter Name Role Phone Asia Gil DO Primary Care Provider +1- [phone] Reason for Visit * Auth/Cert (Routine) Specialty Diagnoses / Procedures Referred By Leonel chin Referred To Contact Diagnoses Left lumbar radiculopathy lumbar radiculopathy Procedures PRO INJECTION DX/THER SBST INTRLMNR LMBR/SAC W/IMG GDN PRO INJECTION DX/THER SBST INTRLMNR LMBR/SAC W/IMG GDN INJECTION, EPIDURAL, LUMBAR OR SACRAL (CAUDAL), WITH IMAGING GUIDANCE (WRVU 1.8) Lumbar or Sacral Epidural Steroid Inj Sacral (Caudal) (68930) Silvana Reyes MD [facility] [place] [address] [facility] Referral ID Status Reason Start Date Expiration Date Visits Re quested Visits Authorized [id number] 1 1 Encounter Details Date Type Department Care Team (Late st Contact Info) Description 02/11/2024 3:15 PM EDT - 02/11/2024 3:45 PM [place]T [place] [phone] Silvana Reyes MD [facility] [place] [address] Not Performed INJECTION, EPIDURAL, LUMBAR OR SACRAL [...] 2nd Gen Pen Needle 32 gauge x /32 Needle USE ONCE DAILY WITH LANTUS 01/22/2024 [...] her provider who apologized for the oversight. Dianen proceeded to to start yelling saying Bee Tiffanie she is Fucking useless. She has not [...] left the room to call security, call psychosocial rehabilitation counselor and alert a channel process supervisor. She kept pounding on the wall so loudly that employees for the adjacent department (infusion) came running down the hallway as they were concerned there was an emergencyand the pounding was distressing their patients. I asked them to return to their department and that security had been called. The practice managed and nursing department chairperson were not on site to discuss this case. While looking for a channel process supervisor patient came walking down the quintero and screaming profanity(exact words not recalled) and that she would not leave until a she could talk to a channel process supervisor and make someone pay for this. This was witnessed by SUPERVISOR [employer], scheduling staff, psychosocial rehabilitation counselor and fellow. I told her I would attempt to find a channel process supervisor but that she needed to return to her clinic room. Atthis point security had not arrived. I then called my direct channel process supervisor (Dr Luis A Contreras) to discuss [...] on file) Attending Physician: Silvana Reyes MD [facility] PREPROCEDURE HISTORY [...] to unknown coagulable status. Dr. Reyes and I were both present in the room during [...] Fellow, PGY5 [facility] [place] [address] / documented in this encounter Miscellaneous Notes * Op Note - Silvana Reyes MD - 02/11/2024 3:15 PM EDT Pain Management Operative Note Patient Name: Toyin Coley : [id number] MR#: [id number] Case Date: 02/11/2024 Surgeon: Surgeon(s) and Role: * Silvana Reyes MD - Primary * Filippo Bah MD - Fellow - Assisting Present on Admission: Left lumbar radiculopathy Postoperative diagnosis: \ Left lumbar radiculopathy Procedure(s) (LRB): INJECTION, EPIDURAL, LUMBAR OR SACRAL (CAUDAL), WITH IMAGING GUIDANCE (WRVU 1.8) (Midline) Lumbar or Sacral Epidural Steroid Inj Sacral (Caudal) (47604) (Midline) Procedure not performed, please see notes for cancellation. documented in this encounter Plan of Treatment Upcoming Encounters Date Type Department Care Team (Latest Contact Info) Description 05/08/2024 10:30 AM EDT Hospital [place] [phone] Bk Contreras MD [facility] [place] [address] 05/08/2024 10:30 AM EDT - 05/08/2024 11:00 AM [place] [phone] Bk Contreras MD [facility] [address] INJECTION, ANESTHETIC AGENT AND/OR STEROID, TRANSFORAMINAL EPIDURAL, LUMBAR OR SACRAL, SINGLE LEVEL (WRVU 1.9) 05/12/2024 1:00 PM EDT Office Visit Cardiology at [address] [phone] Sadi Styles MD [facility] [place] [address] 05/29/2024 10:15 AM EDT TH Visit (TeleHealth) [place] [address] Natalee Sanchez APRN [facility] [address] Scheduled Procedures Name Priority Associated Diagnoses Date/Ti [...] 5:01 PM EDT) Neutrophils % 65.8 % [facility] Neutr Abs (ANC) 5.50 1.70 - 6.10 x10(3)/[facility] Lymphocytes % 25.0 % [facility] Lymphocytes Abs 2.1 0.9 - 3.2 x10(3)/[facility] Monocytes % 7.1 % [facility] Monocyte Abs 0.6 0.3 - 0.9 x10(3)/[facility] Eosinophils % 1.1 % [facility] Eosinophils Abs 0.1 0.0 - 0.4 x10(3)/[facility] Basophils % 0.5 % [facility] Basophils Abs 0.0 0.0 - 0.1 x10(3)/[facility] Immature Gran % 0.50 % [facility] Comment: Immature granulocytes(IG's)percentage and absolute count will include metamyelocytes, myelocytes, and promyelocytes. Blood smears from CBCs yielding IG's will be scanned manually for concordance. If this scan disagrees with the automated IG or if promyelocytes are noted, a manual differential will be performed. Anya Gran Abs 0.04 0.00 - 0.04 x10(3)/[facility] Blood 02/11/2024 5:01 PM EDT 02/11/2024 5:05 PM EDT Narrative Resulting Agency Comment Spec In Lab Filippo aBh MD HEMATOLOGY ORDERABL ES [facility] [place] [address] * (ABNORMAL) Hemogram (02/11/2024 5:01 PM EDT) WBC 8.4 4.0 - 9.5 x10(3)/[facility] RBC 3.91(L) 4.00 - 5.21 x10(6)/[facility] Hemoglobin 12.6 11.7 - 15.5 g/dL [facility] Hematocrit 38.6 35.7 - 45.8 % [facility] MCV 98.7(H) 82.6 - 94.4 fL [facility] MCH 32.2(H) 27.1 - 32.0 pg [facility] MCHC 32.6 31.7 - 35.0 g/dL [facility] Platelets 171 145 - 357 x10(3)/[facility] RDWSD 46.5(H) 37.0 - 46.0 [facility] RDWCV 13.0 11.5 - 14.1 % [facility] MPV 10.0 7.6 - 12.9 [facility] nRBC % Auto 0.0 % [facility] nRBC Abs Auto 0.000 0.000 - 0.000 x10(3)/[facility] Blood 02/11/2024 5:01 PM EDT 02/11/2024 5:05 PM EDT Narrative Resulting Agency Comment Spec In Lab Filippo Bah MD HEMATOLOGY ORDERABL ES Performing Organization Address City/[facility]/ZIP Co de Phone Number [facility] [place] [address] * Platelet count (02/11/2024 5:01 PM EDT) Platelets 185 145 - 357 x10(3)/mc L [facility] Plat Immature % 2.2 0.0 - 7.4 % [facility] Comment: Limitation of the Immature Platelet Fraction (IPF)-May be less reliable when the platelet count is less than 65o057/uL due to statistical imprecision. The IPF value [...] in a decreased state of production. References: [employer] The Clinical Value of the Immature Platelet Fraction (IPF) in Cell Recovery Document Number [id number] 03/2011 [employer] The Role of the Immature Platelet Fraction (IPF) in the Differential Diagnosis of Thrombocytopenia, Document [id number] V05 P05/14 Blood 02/11/2024 5:01 PM EDT 02/11/2024 5:05 PM EDT Narrative Resulting Agency Comment Spec In Lab Silvana Reyes MD HEMATOLOGY ORDERA BLES Performing Organization Address City/[facility]/ZIP Co de Phone Number [facility] [place] [address] * APTT (02/11/2024 5:01 PM EDT) PTT 32 25 - 37 sec [facility] Comment: The PTT is NOT appropriate for heparin monitoring. Use the Anti-Xa level for heparin monitoring (HEP UFH) or LMWH monitoring (HEP LMW). A PTT less than 37 seconds generally indicates adequate hemostasis. Blood 02/11/2024 5:01 PM EDT 02/11/2024 5:05 PM EDT Narrative Resulting Agency Comment Spec In Lab Silvana Reyes MD HEMATOLOGY ORDERA BLES Performing Organization Address [facility] Co de Phone Number [facility] [place] [address] * Prothrombin Time (02/11/2024 5:01 PM EDT) PT 11.4 9.4 - 12.5 sec [facility] INR 1.0 [facility] Comment: An INR <2.0 indicates adequate [...] MD HEMATOLOGY ORDERA BLES Performing Organization Address [facility] Co de Phone Number [facility] [place] [address] documented in this encounter Visit Diagnoses Diagnosis Left lumbar radiculopathy- Primary Thoracic or lumbosacral neuritis or radiculitis, unspecified Left lumbar radiculopathy Thoracic or lumbosacral neuritis or radiculitis, unspecified Left lumbar radiculopathy Thoracic or lumbosacral neuritis or radiculitis, unspecified documented in this encounter Admitting Diagnoses Diagnosis Left lumbar radiculopathy Thoracic or lumbosacral neuritis or radiculitis, unspecified documented in this encounter Care Teams Golf Club Weighter Relationship Specialty Start Date End Date Asia Gil DO [address] [place] [address] PCP - General Family Medicine 07/09/20 documented as of this encounter
--- OUTSIDE RECORDS SUMMARY | 2024-05-02 12:05 | XMS_ITS | Encounter Summary ---
Author Organization [facility] Address [facility] [place] [address] Care Team Providers Care Methods Examiner Name Role Phone Asia Gil DO Primary Care Provider +1- [phone] Encounter Details Date Type Department Care Team (Late st Contact Info) Description 08/19/2023 Orders Only [place]ph[place] [address] Magdaleno Dia MD [facility] [place] [address] Hyperuricemia Social History Tobacco Use Types Packs/Day Years Used Date Smoking Tobacco: Never Smokeless Tobacco: Never Comments:uses medical yumiko nader Alcohol Use Standard Drinks/Week Comments Not Asked 0 (1 standard drink = 0.6 oz pur e alcohol) 12 years ago [facility] Inpatient Questions Answer Date Recorded Prevent [...] as of this encounter Progress Notes * Magdaleno Dia MD - 08/19/2023 10:27 AM EST Uric acid resulted in elevated. Given patient's constellation of joint complaints believe it is reasonable to add xanthine oxidase inhibition. She denies high purine intake in her diet. Will prescribe allopurinol 50 mg daily with a plan to repeat uric acid in 3 months and assess response. Patient in structed to call if she experiences any changes with her skin documented in this encounter Plan of Treatment Upcoming Encounters Date Type Department Care Team (Latest Contact Info) Description 05/08/2024 10:30 AM EDT Hospital Encounter Pain Management [place] [phone] Bk Contreras MD [facility] [place] [address] 05/08/2024 10:30 AM EDT - 05/08/2024 11:00 AM EDT [place] [phone] Bk Contreras MD [facility] [place] [address] INJECTION, ANESTHETIC AGENT AND/OR STEROID, TRANSFORAMINAL EPIDURAL, LUMBAR OR SACRAL, SINGLE LEVEL (WRVU 1.9) 05/12/2024 1:00 PM EDT Office Visit Cardiology at [place] [phone] Sadi Styles MD [facility] [place] [address] 05/29/2024 10:15 AM EDT TH Visit (TeleHealth) [facility] and Spine Center at [place] [phone] Natalee Sanchez, [facility] [place] [place] [address] Scheduled Procedures Name Priority Associated Diagnoses Date/Ti me INJECTION, ANESTHETIC AGENT AND/OR STEROID, TRANSFORAMINAL EPIDURAL, LUMBAR OR SACRAL, SINGLE LEVEL (WRVU 1.9) Left lumbar radiculopathy 05/08/2024 10:30 AM EDT documented as of this encounter Visit Diagnoses Diagnosis Hyperuricemia Other abnormal blood chemistry Left lumbar radiculopathy Thoracic or lumbosacral neuritis or radiculitis, unspecified documented in this encounter Care Teams Methods Examiner Relationship Specialty Start Date End Date Asia Gil DO [address] [place] [address] PCP - General Family Medicine 07/09/20 documented as of this encounter
--- OUTSIDE RECORDS SUMMARY | 2024-05-02 12:05 | XMS_ITS | Encounter Summary ---
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 09/06/2023 lisinopriL (Zestril) 2.5 mg tablet Take 2.5 mg by mouth 2 times daily. 12/19/2022 allopurinoL (Zyloprim) 100 mg tablet Take 0.5 [...] by mouth daily. 90 tablet 3 01/27/2021 amitriptyline (Elavil) 25 mg Tablet Take 75 mg by mouth nightly. 11/10/2022 12/22/2023 diclofenac (Voltaren) 1 % Gel APPLY 4 GRAMS TOPICALLY TO THE AFFECTED AREA FOUR TIMES DAILY. CONTINUE TOPICAL NSAID FOR FOOT PAIN 10/13/2022 12/22/2023 Jardiance 10 mg Tablet Take 10 mg by mouth daily. 10/25/2022 12/22/2023 isosorbide mononitrate CR (Imdur) 30 mg Tablet Sustained Release 24 hr Take 1 tablet by mouth every morning. 30 tablet 12 05/16/2021 12/22/2023 melatonin 3 mg Tablet Take 2 tablets by mouth nightly. 180 tablet 3 02/13/2021 12/22/2023 traZODone (Desyrel) 50 mg Tablet Take 0.5 tablets by mouth nightly. 45 tablet 3 02/13/2021 01/10/2024 oxyCODONE (Roxicodone) 5 mg Tablet Take 1 tablet by mouth every 8 hours as needed for Pain. 15 tablet 02/03/2021 12/22/2023 gabapentin (Neurontin) 100 mg Capsule Take 2 capsules by mouth 2 times daily. 90 capsule 12 01/27/2021 04/04/2024 atorvastatin (Lipitor) 40 mg Tablet Take 1 tablet by mouth every evening. 90 tablet 3 01/27/2021 12/22/2023 documented as of this encounter Plan of Treatment Upcoming Encounters Date Type Department Care Team (Latest Contact Info) Description 05/08/2024 10:30 AM EDT Hospital [place] [address] Bk Contreras MD [facility] [place] [address] 05/08/2024 10:30 AM EDT - 05/08/2024 11:00 AM EDT [place] [address] Bk Contreras MD [facility] [place] [address] INJECTION, ANESTHETIC AGENT AND/OR STEROID, TRANSFORAMINAL EPIDURAL, LUMBAR OR SACRAL, SINGLE LEVEL (WRVU 1.9) 05/12/2024 1:00 PM EDT Office Visit Cardiology at [address] [phone] Sadi Styles MD [facility] [place] [address] 05/29/2024 10:15 AM EDT TH Visit (TeleHealth) [place] [phone] Natalee Sanchez APRN [facility] [place], [place] [phone] Scheduled Procedures Name Priority Associated Diagnoses Date/Ti me INJECTION, ANESTHETIC AGENT AND/OR STEROID, TRANSFORAMINAL EPIDURAL, LUMBAR OR SACRAL, SINGLE LEVEL (WRVU 1.9) Left lumbar radiculopathy 05/08/2024 10:30 AM EDT documented as of this encounter Procedures Procedure Name Priority Date/Time Associated Diagnosis Comments XR LUMBAR SPINE 2 OR 3 VIEWS Routine 09/28/2023 8:56 AM EST 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 ? Narrative 09/28/2023 11:14 AM EST EXAMINATION: XR [...] patients who have questions please contactthe health healthcare or medical that requested your imaging first. Electronically signed by: Heavenly Moore [facility]([phone]), at 09/28/2023 11:14 AM Amy Herring MD IMG DX ORDERABLES documented in this encounter Visit Diagnoses Diagnosis Chronic left-sided low back pain with bilateral sciatica Left lumbar radiculopathy Thoracic or lumbosacral neuritis or radiculitis, unspecified documented in this encounter Care Teams Iso Coordinator Relationship Specialty Start Date End Date Asia Gil DO [address] [facility] [place] [address] PCP - General Family Medicine 07/09/20 documented as of this encounter
--- OUTSIDE RECORDS SUMMARY | 2024-05-02 12:05 | XMS_ITS | Encounter Summary ---
Author Organization [facility] [place] [address] Care Team Providers Care Tile Helper Name Role Phone Asia Gil DO Primary Care Provider +1- [phone] Encounter Details Date Type Department Care Team (Late st Contact Info) Description 10/14/2023 Telephone [place] [phone] Morris Salas PA [facility] [place] [address] Social History Tobacco Use Types Packs/Day Years Used Date Smoking Tobacco: Never Smokeless Tobacco: Never Comments:uses medical yumiko nader Alcohol Use Standard Drinks/Week Comments Not Asked 0 (1 standard drink = 0.6 oz pur e alcohol) 12 years ago [facility] Inpatient Questions Answer Date Recorded Prevent [...] encounter Miscellaneous Notes * Telephone Encounter - Ghazala Salas - 10/14/2023 4:06 PM EST Cecelia Markham from [facility] internal medicine called back regarding the Mri done 08/30/2023. 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 She is wondering if Morris salas or Dr. Herring saw that on the MRI. Call back # [phone] * Telephone Encounter - Morris Salas PA - 10/14/2023 10:07 AM EST I left a message for the patients primary team to explain that the patient does not have pathology within her foot and ankle that is causing her pain. Her lumbar spine XR reveals facet arthropathy which could be contributing to the patients pain. I have ordered an MRI and sent referral to pain and spine but wanted to make her PCP aware of this for further workup. documented in this encounter Plan of Treatment Upcoming Encounters Date Type Department Care Team (Latest Contact Info) Description 05/08/2024 10:30 AM EDT Hospital Encounter [place] [phone] Bk Contreras MD [facility] [place] [address] 05/08/2024 10:30 AM EDT - 05/08/2024 11:00 AM EDT Surgery [place] [phone] Bk Contreras MD [facility] [place] [address] INJECTION, ANESTHETIC AGENT AND/OR STEROID, TRANSFORAMINAL EPIDURAL, LUMBAR OR SACRAL, SINGLE LEVEL (WRVU 1.9) 05/12/2024 1:00 PM EDT Office Visit Cardiology at [address] [phone] Sadi Styles MD [facility] [place] [address] 05/29/2024 10:15 AM EDT TH Visit (TeleHealth) [place] [address] Natalee Sanchez APRN [facility] [place] [address] Scheduled Procedures Name Priority Associated Diagnoses Date/Ti me INJECTION, ANESTHETIC AGENT AND/OR STEROID, TRANSFORAMINAL EPIDURAL, LUMBAR OR SACRAL, SINGLE LEVEL (WRVU 1.9) Left lumbar radiculopathy 05/08/2024 10:30 AM EDT documented as of this encounter Visit Diagnoses Not on filedocumented in this encounter Care Teams Tile Helper Relationship Specialty Start Date End Date Asia Gil DO [address] [place] [address] PCP - General Family Medicine 07/09/20 documented as of this encounter
--- OUTSIDE RECORDS SUMMARY | 2024-05-02 12:05 | XMS_ITS | Encounter Summary ---
[place] [address] Care Team Providers Care Bladder Cleaner Name Role Phone Asia Gil DO Primary Care Provider +1- [phone] Reason for Visit * Auth/Cert (Routine) Specialty Diagnoses / Procedures Referred By Leonel chin Referred To Contact Diagnoses Left lumbar radiculopathy lumbar radiculopathy Procedures PRO INJECTION DX/THER SBST INTRLMNR LMBR/SAC W/IMG GDN PRO INJECTION DX/THER SBST INTRLMNR LMBR/SAC W/IMG GDN INJECTION, EPIDURAL, LUMBAR OR SACRAL (CAUDAL), WITH IMAGING GUIDANCE (WRVU 1.8) Lumbar or Sacral Epidural Steroid Inj Sacral (Caudal) (42347) Silvana Reyes MD [facility] [place] [address] [facility] Referral ID Status Reason Start Date Expiration Date Visits Re quested Visits Authorized [id number] 1 1 Encounter Details Date Type Department Care Team ([facility] st Contact Info) Description 02/11/2024 4:55 PM EDT Laboratory Appointment Lab [address] [place] [phone] Social History Tobacco Use Types Packs/Day Years Used Date Smoking Tobacco: Never Smokeless Tobacco: Never Comments:uses medical yumiko nader Alcohol Use Standard Drinks/Week Comments Not Currently 0 (1 standard drink = 0.6 oz pur e alcohol) 12 years ago [facility] Inpatient Questions Answer Date Recorded Prevent [...] 10:30 AM EDT Hospital Encounter Pain Management [place] [phone] Bk Contreras MD [facility] [place] [address] 05/08/2024 10:30 AM EDT - 05/08/2024 11:00 AM EDT Surgery Pain Management [place] [phone] Bk Contreras MD [facility] [place] [address] INJECTION, ANESTHETIC AGENT AND/OR STEROID, TRANSFORAMINAL EPIDURAL, LUMBAR OR SACRAL, SINGLE LEVEL (WRVU 1.9) 05/12/2024 1:00 PM EDT Office Visit Cardiology at [place] [phone] Sadi Styles MD [facility] [place] [address] 05/29/2024 10:15 AM EDT TH Visit (TeleHealth) Pain and Spine Center at [place] [phone] Natalee Sanchez, COLOR MAKING SUPERVISOR [facility] [place], [place] [phone] Scheduled Procedures Name Priority Associated Diagnoses Date/Ti me INJECTION, ANESTHETIC AGENT AND/OR STEROID, TRANSFORAMINAL EPIDURAL, LUMBAR OR SACRAL, SINGLE LEVEL (WRVU 1.9) Left lumbar radiculopathy 05/08/2024 10:30 AM EDT documented as of this encounter Visit Diagnoses Not on filedocumented in this encounter Care Teams Bladder Cleaner Relationship Specialty Start Date End Date Asia Gil DO [address] [place] [address] PCP - General Family Medicine 07/09/20 documented as of this encounter
--- OUTSIDE RECORDS SUMMARY | 2024-05-02 12:05 | XMS_ITS | Encounter Summary ---
Author Organization Formerly [facility] [place] [address] Care Team Providers Care Admission Nurse Coordinator Name Role Phone Asia Gil DO Primary Care Provider +1- [phone] Encounter Details Date Type Department Care Team (Latest Contact Info) Description 12/22/2023 Travel Social History Tobacco Use Types Packs/Day [...] 10:30 AM EDT Hospital Encounter Pain Management [facility] [place] [address] Bk Contreras MD [facility] [place] [address] 05/08/2024 10:30 AM EDT - 05/08/2024 11:00 AM [place] [address] Bk Contreras MD [facility] [place] [address] INJECTION, ANESTHETIC AGENT AND/OR STEROID, TRANSFORAMINAL EPIDURAL, LUMBAR OR SACRAL, SINGLE LEVEL (WRVU 1.9) 05/12/2024 1:00 PM EDT Office Visit Cardiology at [place] [phone] Sadi Styles MD [facility] [place] [address] 05/29/2024 10:15 AM EDT TH Visit (TeleHealth) [facility] Sp[facility] at [place] [phone] Natalee Sanchez APRN [facility] [place] [address] Scheduled Procedures Name Priority Associated Diagnoses Date/Ti me INJECTION, ANESTHETIC AGENT AND/OR STEROID, TRANSFORAMINAL EPIDURAL, LUMBAR OR SACRAL, SINGLE LEVEL (WRVU 1.9) Left lumbar radiculopathy 05/08/2024 10:30 AM EDT documented as of this encounter Visit Diagnoses Not on filedocumented in this encounter Care Teams Admission Nurse Coordinator Relationship Specialty Start Date End Date Asia Gil DO [address] [place] [address] PCP - General Family Medicine 07/09/20 documented as of this encounter
--- OUTSIDE RECORDS SUMMARY | 2024-05-02 12:05 | XMS_ITS | Encounter Summary ---
Author Organization [facility] [place] [address] Care Team Providers Care Cold Mill Inspector Name Role Phone Asia Gil DO Primary Care Provider +1- [phone] Encounter Details Date Type Department Care Team (Late st Contact Info) Description 02/11/2024 Notes [place] [phone] Bk Contreras MD [facility] [place] [address] Social History Tobacco Use Types Packs/Day Years [...] as of this encounter Progress Notes * Bk Contreras MD - 02/11/2024 4:47 PM EDT I was called to the Procedure Pre-op by Dr. Reyes due to Ms. Coley' belligerent behavior- using profanity, banging on the gerber- after learning that she would not be getting her procedure as shewas not ordered appropriate pre- procedure labs (She has h/o cirrhosis and most recent coag panel isfrom 2020). I apologized for the error in ordering her procedure, explaining that per ASHLEY guidelines, she would need baseline coagulation profile, as prior lab results would be a contraindication for an epidural steroid injection with potential devastating complications, as epidural bleeding and paralysis. I explained to her that I would accommodate her for an injection DARRON once her lab results were obtained, and that they would be within acceptable range. She went on with using profanity, and to ask for suspension of her prior care providers, persisting that this was an unacceptable mistake. Once her daughter came in, she went on to say You know how I am when I am frustrated, and attempted to show how she was banging on the gerber. I interrupted her at that point. I told her that for us to have a therapeutic relationship, she would need to behave within norms of respect and would absolutely stop use of profanity and aggressive behavior toward the clinic staff, and the environment she is in. Otherwise, she would need to be removed from the clinic with the help of Security waiting outside of the clinic space, and that she would not be able to get care as a patient the Pain Clinic. At that point, she agreed to get her labs done and return to the clinic on 02/21/2024 for a lumbar epidural steroid injection. She was informed that going forward she would need to continue at the same norms expected from all patients- with respect and calm/ peaceful discussion, if she expected to be taken care of at the Pain Clinic. We will obtain a behavioral consent when she returns to the clinic for her epidural steroid injection. Bk Contreras MD Attending [facility] [address] [address] / documented in this encounter Plan of Treatment Upcoming Encounters Date Type Department Care Team (Latest Contact Info) Description 05/08/2024 10:30 AM EDT Hospital Encounter Pain Management [place] [phone] Bk Contreras MD [facility] [place] [address] 05/08/2024 10:30 AM EDT - 05/08/2024 11:00 AM EDT [place] [phone] Bk Contreras MD [facility] [place] [address] INJECTION, ANESTHETIC AGENT AND/OR STEROID, TRANSFORAMINAL EPIDURAL, LUMBAR OR SACRAL, SINGLE LEVEL (WRVU 1.9) 05/12/2024 1:00 PM EDT Office Visit Cardiology at [place] [phone] Sadi Styles MD [facility] [place] [address] 05/29/2024 10:15 AM EDT TH Visit (TeleHealth) Pain and Spine Center at [place] [address] Natalee Sanchez, PASTEURIZER HELPER [facility] [place] [address] Scheduled Procedures Name Priority Associated Diagnoses Date/Ti me INJECTION, ANESTHETIC AGENT AND/OR STEROID, TRANSFORAMINAL EPIDURAL, LUMBAR OR SACRAL, SINGLE LEVEL (WRVU 1.9) Left lumbar radiculopathy 05/08/2024 10:30 AM EDT documented as of this encounter Visit Diagnoses Not on filedocumented in this encounter Care Teams Cold Mill Inspector Relationship Specialty Start Date End Date Asia Gil DO [address] [place] [address] PCP - General Family Medicine 07/09/20 documented as of this encounter
--- OUTSIDE RECORDS SUMMARY | 2024-05-02 12:05 | XMS_ITS | Encounter Summary ---
Author Organization Formerly [facility] [place] [address] Care Team Providers Care Manager Of Learning Name Role Phone Asia Gil DO Primary Care Provider +1- [phone] Encounter Details Date Type Department Care Team (Latest Contact Info) Description 08/10/2023 Travel Social History Tobacco Use Types Packs/Day [...] EDT Hospital Encounter Pain Management [facility] [place] [address] Bk Contreras MD [facility] [place] [address] 05/08/2024 10:30 AM EDT - 05/08/2024 11:00 AM EDT Surgery [place] [address] Bk Contreras MD [facility] [place] [address] INJECTION, ANESTHETIC AGENT AND/OR STEROID, TRANSFORAMINAL EPIDURAL, LUMBAR OR SACRAL, SINGLE LEVEL (WRVU 1.9) 05/12/2024 1:00 PM EDT Office Visit Cardiology at [place] [phone] Sadi Styles MD [facility] [place] [address] 05/29/2024 10:15 AM EDT TH Visit (TeleHealth) [facility] Sp[facility] at [place] [phone] Natalee Sanchez APRN [facility] [place] [address] Scheduled Procedures Name Priority Associated Diagnoses Date/Ti me INJECTION, ANESTHETIC AGENT AND/OR STEROID, TRANSFORAMINAL EPIDURAL, LUMBAR OR SACRAL, SINGLE LEVEL (WRVU 1.9) Left lumbar radiculopathy 05/08/2024 10:30 AM EDT documented as of this encounter Visit Diagnoses Not on filedocumented in this encounter Care Teams Manager Of Learning Relationship Specialty Start Date End Date Asia Gil DO [address] [place] [address] PCP - General Family Medicine 07/09/20 documented as of this encounter
--- OUTSIDE RECORDS SUMMARY | 2024-05-02 12:05 | XMS_ITS | Encounter Summary ---
Author Organization [facility] [place] [address] Care Team Providers Care Preparation Department Supervisor Name Role Phone Asia Gil DO Primary Care Provider +1- [phone] Encounter Details Date Type Department Care Team (Late st Contact Info) Description 12/06/2023 4:20 PM EST Ancillary Procedure [place] [phone] Asia Gil, [address] [place] [address] Social History Tobacco Use Types Packs/Day Years [...] 10:30 AM EDT Hospital En[place] [phone] Bk Contreras MD [facility] [place] [address] 05/08/2024 10:30 AM EDT - 05/08/2024 11:00 AM EDT [place] [phone] Bk Contreras MD [facility] [place] [address] INJECTION, ANESTHETIC AGENT AND/OR STEROID, TRANSFORAMINAL EPIDURAL, LUMBAR OR SACRAL, SINGLE LEVEL (WRVU 1.9) 05/12/2024 1:00 PM EDT Office Visit Cardiology at [address] [phone] Sadi Styles MD [facility] [place] [address] 05/29/2024 10:15 AM EDT TH Visit (TeleHealth) [facility] [place] [phone] Natalee Sanchez, CHIEF DIGITAL OFFICER [facility] [place] [address] Scheduled Procedures Name Priority Associated Diagnoses Date/Ti me INJECTION, ANESTHETIC AGENT AND/OR STEROID, TRANSFORAMINAL EPIDURAL, LUMBAR OR SACRAL, SINGLE LEVEL (WRVU 1.9) Left lumbar radiculopathy 05/08/2024 10:30 AM EDT documented as of this encounter Procedures Procedure Name Priority Date/Time Associated Diagnosis Comments FILM LIBRARY STORAGE ONLY MR SPINE Routine 12/06/2023 4:15 PM EST documented in this encounter Results * Film Library- Storage Only MR Spine (12/06/2023 4:15 PM EST) Narrative TAHIR PRINCESS - 12/06/2023 4:15 PM EST This exam is auto-finalizing. It's purpose is for storage only. Asia Gil DO IMG FILM LIBRARY O RDERABLES [place], [place] documented in this encounter Visit Diagnoses Not on filedocumented in this encounter Care Teams Preparation Department Supervisor Relationship Specialty Start Date End Date Asia Gil DO [address] [facility] [place] [address] PCP - General Family Medicine 07/09/20 documented as of this encounter
--- OUTSIDE RECORDS SUMMARY | 2024-05-02 12:05 | XMS_ITS | Encounter Summary ---
Author Organization [facility] [place] [address] Care Team Providers Care Insurance Business Analyst Name Role Phone Asia Gil DO Primary Care Provider +1- [phone] Encounter Details Date Type Department Care Team (Latest Contact Info) Description 01/06/2024 Travel Social History Tobacco Use Types Packs/Day [...] EDT Hospital Encounter Pain Management [facility] [place] [address] Bk Contreras MD [facility] [place] [address] 05/08/2024 10:30 AM EDT - 05/08/2024 11:00 AM EDT Surgery [place] [address] Bk Contreras MD [facility] [place] [address] INJECTION, ANESTHETIC AGENT AND/OR STEROID, TRANSFORAMINAL EPIDURAL, LUMBAR OR SACRAL, SINGLE LEVEL (WRVU 1.9) 05/12/2024 1:00 PM EDT Office Visit Cardiology at [place] [phone] Sadi Styles MD [facility] [place] [address] 05/29/2024 10:15 AM EDT TH Visit (TeleHealth) [facility] Sp[facility] at [place] [phone] Natalee Sanchez APRN [facility] [place] [address] Scheduled Procedures Name Priority Associated Diagnoses Date/Ti me INJECTION, ANESTHETIC AGENT AND/OR STEROID, TRANSFORAMINAL EPIDURAL, LUMBAR OR SACRAL, SINGLE LEVEL (WRVU 1.9) Left lumbar radiculopathy 05/08/2024 10:30 AM EDT documented as of this encounter Visit Diagnoses Not on filedocumented in this encounter Care Teams Insurance Business Analyst Relationship Specialty Start Date End Date Asia Gil DO [address] [place] [address] PCP - General Family Medicine 07/09/20 documented as of this encounter
--- OUTSIDE RECORDS SUMMARY | 2024-05-02 12:05 | XMS_ITS | Encounter Summary ---
Author Organization [facility] [place] [address] Care Team Providers Care Casting Operator Name Role Phone Asia Gil DO Primary Care Provider +1- [phone] Reason for Referral * Diagnostic Test (Routine) - New Request Specialty Diagnoses / Procedures Referred By Leonel chin Referred To Contact Diagnoses PVD (peripheral vascular disease) with claudication Pain in both feet Procedures ADRY, legs, multiple levels Gloria Buchanan APRN [facility] [place] [address] [facility] [address] [place] [phone] Referral ID Status Reason Start Date Expiration Date Visits Requested Visits Authorized [id number] New Request Specialty Service Requested 06/28/2023 06/27/2024 1 1 Reason for Visit * Consultation (Routine) - Closed Specialty Diagnoses / Procedures Referred By Contjaymie t Referred To Contact Vascular Surgery Diagnoses Peripheral vascular disease, unspecified ROUTINE, DONNA, ADRY Tawny Grullon, DPM [address] [facility] [address] [place] [address] [place] [phone] [facility] [address] [place] [phone] Referral ID Status Reason Start Date Expiration Date V isits Requested Visits Authorized [id number] Closed Consult, Test & Treat 05/18/2023 05/17/2024 1 1 Encounter Details Date Type Department Care Team (Late st Contact Info) Description 06/28/2023 2:30 PM EDT Office [place] [address] Gloria Buchanan APRN [facility] [place] [address] PVD (peripheral vascular disease) with claudication; Pain in both feet Social History Tobacco Use Types Packs/Day Years Used Date Smoking Tobacco: Never Smokeless Tobacco: Never Comments:uses medical yumiko nader Alcohol Use Standard Drinks/Week Comments Not Asked 0 (1 standard drink = 0.6 oz pur e alcohol) 12 years ago [facility] Inpatient Questions Answer Date Recorded [...] Sign Reading Time Taken Comments Blood Pressure 104/48 06/28/2023 2:13 PM EDT Pulse 50 06/28/2023 2:13 PM EDT Temperature - - Respiratory Rate - - Oxygen Saturation 97% 06/28/2023 2:13 PM EDT Inhaled Oxygen Concentration - - Weight 76.2 kg (168 lb) 06/28/2023 2:13 PM EDT Height 160 cm (5' 3) 06/28/2023 2:13 PM EDT Body Mass Index 29.76 06/28/2023 2:13 PM EDT documented in this encounter Progress Notes * Gloria Buchanan APRN - 06/28/2023 2:30 PM EDT This is a new patient to the practice who is being evaluated for PAD and was referred by Asia Gil DO. HPI: 68 y.o. female with PMH: HTN, HLD, DMII, CHF, CKD, CAD s/p stenting, KINGSLEY (does not use CPAP) and TIA. Pt presents today for B foot pain and neuropathy. Pt has known BLE neuropathy with a recent ~1 year increase in BLE pain. Right foot and left medial santa with daily pain, intermittent and present with both rest and ambulation. She denies calf cramping, tissue loss or edema. She denies CP, SOB. She denies recent CVA/TIA sx. She takes daily ASA and Statin. She is a never smoker. Atherosclerotic RF: DM (y) HTN (y) CAD (y) CHF (y) HLD (y) CVA (y) Tobacco (n) PMHx: Past Medical History: Diagnosis Date CKD (chronic kidney disease) 04/05/2020 Delirium 04/05/2020 Diabetes mellitus type 2, uncomplicated 05/14/2014 Hx-TIA (transient ischemic attack) 05/14/2014 Hyperlipidemia 05/28/2014 Off statin due to foot pain side effect Hypertension 05/28/2014 Restless legs syndrome (RLS) 04/05/2020 PSxHx: Past Surgical History: Procedure Laterality Date CT GUIDED DRAIN PANCREATIC/PERIPANCREATIC 02/20/2021 CT Guided Drain Pancreatic/Peripancreatic 02/20/2021 Mauro Thomas DO [facility] RAD CAT SCAN IR DRAIN CHECK/CHANGE/REMOVE 03/13/2021 IR Drain Check/Change/Remove 03/13/2021 Chris Jamil MD [facility] INTERVENTIONL RAD PRO ENDOSCOPIC US EXAM, ESOPH N/A 01/18/2023 UPPER EUS- ENDOSCOPIC ULTRASOUND (WRVU 3.47) performed by Jordan Dowling MD at [facility] ENDOSCOPY PRO ERCP,DIAGNOSTIC N/A 01/17/2021 ERCP performed by Eliel Leigh MD at [facility] ENDOSCOPY PRO UP GI ENDOSCOPY, REMV TUMOR, SNARE 01/18/2023 EGD, W REMOVAL TUMOR/POLYPS/LESIONS BY SNARE TECHNIQUE (WRVU 3.47) performed by Jordan Dowling MD at [facility] ENDOSCOPY PRO UPPER GI ENDOSCOPY, BIOPSY N/A 01/18/2023 EGD WITH BIOPSY (WRVU 2.39) performed by Jordan Dowling MD at [facility] ENDOSCOPY Family Hx: Family History Problem Relation Age of Onset Colorectal Cancer Neg Hx Inflammatory Bowel Disease Neg Hx Celiac Disease Neg Hx Esophageal Cancer Neg Hx Stomach Cancer Neg Hx Pancreatic Cancer Neg Hx Social Hx: Social History Tobacco Use Smoking status: Never Smokeless tobacco: Never Tobacco comments: uses medical marijauna Substance Use Topics Alcohol use: Not on file Comment: 12 years ago Medications: Medications 06/28/23 1413 Medication Sig Taking? amitriptyline (Elavil) 25 mg Tablet Take 75 mg by mouth nightly. Yes OneTouch Ultra Test Strip CHECK BLOOD SUGAR DAILY Yes diclofenac (Voltaren) 1 % Gel APPLY 4 GRAMS TOPICALLY TO THE AFFECTED AREA FOUR TIMES DAILY. CONTINUE TOPICAL NSAID FOR FOOT PAIN Yes Jardiance 10 mg Tablet Take 10 mg by mouth daily. Yes torsemide (Demadex) 10 mg Tablet Take 10 mg by mouth daily. Yes isosorbide mononitrate CR (Imdur) 30 mg Tablet Sustained Release 24 hr Take 1 tablet by mouth everymorning. Yes nitroGLYcerin (Nitrostat) 0.4 mg Tablet, Sublingual Take 0.4 mg by mouth as needed. Yes ondansetron (Zofran) 4 mg Tablet Take 4 mg by mouth as needed. Yes Lantus Solostar U-100 Insulin pen 11 Units. Yes OneTouch Ultra2 Meter Misc USE DIRECTED TO TEST BLOOD GLUCOSE Yes OneTouch Delica Plus Lancet 33 gauge Misc USE TO TEST BLOOD SUGAR DAILY Yes aspirin 81 mg Tablet, Chewable Take 81 mg by mouth daily. Yes melatonin 3 mg Tablet Take 2 tablets by mouth nightly. Yes traZODone (Desyrel) 50 mg Tablet Take 0.5 tablets by mouth nightly. Yes oxyCODONE (Roxicodone) 5 mg Tablet Take 1 tablet by mouth every 8 hours as needed for Pain. Yes polyethylene glycoL (Miralax) 17 gram Powder in Packet Take 17 g by mouth daily. Patient taking differently: Take 17 g by mouth as needed. Every other day Yes acetaminophen (Tylenol) 325 mg Tablet Take 2 tablets by mouth every 4 hours as needed for Pain. Yes calcium carbonate (Tums) 200 mg calcium (500 mg) Tablet, Chewable Take 1-2 tablets by mouth every 4hours as needed for Heartburn. Yes gabapentin (Neurontin) 100 mg Capsule Take 2 capsules by mouth 2 times daily. Patient taking differently: Take 300 mg by mouth 3 times daily. Yes atorvastatin (Lipitor) 40 mg Tablet Take 1 tablet by mouth every evening. Yes metoprolol succinate XL (Toprol-XL) 50 mg Tablet Sustained Release 24 hr Take 1 tablet by mouth daily. Yes pantoprazole EC (Protonix) 40 mg Tablet, Delayed Release (E.C.) Take 1 tablet by mouth daily. Yes Allergies: Allergies Allergen Reactions Benzodiazepines Other (See Comments) Paradoxical reaction to benzodiazepines House Dust Hydrocodone-Acetaminophen Itching Metoclopramide Mold Extracts Pollen Extracts Propoxyphene Hcl Nausea And Vomiting Unknown [Unclassified Drug] Most environmental allergies: grass, workman, trees,pollen Review of Systems: Constitutional (weight change, fever) - Denies Neuro (dizziness, seizures, numbness, tingling) - Denies Eyes (vision) - Denies Ears, nose, throat (hearing) - Denies Cardiovascular (CP) - Denies Respiratory (SOB) - Denies GI (abd pain, nausea, emesis, blood in stool) - Denies (hematuria, dysuria, frequency) - Denies Muscoloskeletal (extremity pain, weakness) - See HPI Skin (ulcers, rashes) - Denies All other ROS negative Physical Exam: Vitals: Vitals: 06/28/23 1413 BP: 104/48 BP Location (NBP): Right arm Patient Position: Sitting BP Cuff Sizes: Adult (25-34 cm) Pulse: 50 SpO2: 97% Weight: 76.2 kg (168 lb) Height: 160 cm (5' 3) General: NAD, appears well Neuro: Alert and oriented, motor sensory grossly intact Lungs: CTA Heart: RRR Abd: Soft, NT, ND, no palpable pulsatile masses Extremity - [place], warm, no ulceration, brisk capillary refill, no edema. Vascular: R L Carotid 2/2 bruit (n) 2/2 bruit (n) Radial 2/2 2/2 Femoral 2/2 2/2 Popliteal 1/2 1/2 DP 0/2 0/2 PT 0/2 0/2 Labs/Studies: 06/28/2023 ADRY Findings: Right Pressure (mm Hg) ADRY Waveform TBI Brachial Artery 115 Dorsalis Pedis (Ankle) Artery 106 0.92 Biphasic Posterior Tibial (Ankle) Artery 97 0.84 Biphasic Great Toe 0 0.00 Second Toe 61 0.53 Left Pressure (mm Hg) ADRY Waveform TBI Brachial Artery 108 Dorsalis Pedis (Ankle) Artery 125 1.09 Bi-Triphasic Posterior Tibial (Ankle) Artery 107 0.93 Bi-Triphasic Great Toe 0 0.00 Second Toe 31 0.27 Interpretation: RIGHT: Mild lower extremity arterial occlusive disease with additional severe disease in the great toe. Significant progression when compared to the previous exam. LEFT: No significant lower extremity arterial occlusive disease to the distal calf with additional moderately severe to severe disease in the foot. No significant change in ADRY compared to previous exam. Significant progression in TBI when compared to the previous exam. Assessment/Plan: 68 y.o. female with PMH: HTN, HLD, DMII, CHF, CKD, CAD s/p stenting, KINGSLEY (does notuse CPAP) and TIA. Pt presents today for B foot pain and neuropathy. Pt's DP/PT are mildly decreased; R 0.92/0.84 and biphasic, L 1.09/0.93 and bi-triphasic. Pt's TBI bilaterally is 0 today. With R 2nd TP 61 and L 2nd TP 31. Pt has generalized B neuropathy to her feet, no s/sx ischemia. She denies claudication, tissue loss. She endorses intermittent leg pain that sounds atypical for PAD. No intervention recommended at this time. Recommend patient continue daily statin and ASA 81 mg. Recommend tight control of co-morbidities and continued abstinence from smoking. Follow-up in the clinic in 1 year with ABIs. Instructed to callthe clinic with any concerns prior to next appointment. Instructed to call 911 for any s/sx of CLI including unilateral increased pain, decreased sensation or temperature, or tissue loss. Gloria Buchanan APRN Department of Vascular Surgery documented in this encounter Plan of Treatment Upcoming Encounters Date Type Department Care Team (Latest Contact Info) Description 05/08/2024 10:30 AM EDT Hospital En[place] [address] Bk Contreras MD [facility] [place] [address] 05/08/2024 10:30 AM EDT - 05/08/2024 11:00 AM EDT Surgery [place] [address] Bk Contreras MD [facility] [place] [address] INJECTION, ANESTHETIC AGENT AND/OR STEROID, TRANSFORAMINAL EPIDURAL, LUMBAR OR SACRAL, SINGLE LEVEL (WRVU 1.9) 05/12/2024 1:00 PM EDT Office Visit Cardiology at [address] Sadi Styles MD [facility] [place] [place] [address] 05/29/2024 10:15 AM EDT TH Visit (TeleHealth) [place] [address] Natalee Sanchez APRN [facility] [place] [address] Scheduled Procedures Name Priority Associated Diagnoses Date/Ti me INJECTION, ANESTHETIC AGENT AND/OR STEROID, TRANSFORAMINAL EPIDURAL, LUMBAR OR SACRAL, SINGLE LEVEL (WRVU 1.9) Left lumbar radiculopathy 05/08/2024 10:30 AM EDT documented as of this encounter Visit Diagnoses Diagnosis PVD (peripheral vascular disease) with claudication Peripheral vascular disease, unspecified Pain in both feet Pain in limb Left lumbar radiculopathy Thoracic or lumbosacral neuritis or radiculitis, unspecified documented in this encounter Care Teams Casting Operator Relationship Specialty Start Date End Date Asia Gil DO [address] [place] [address] PCP - General Family Medicine 07/09/20 documented as of this encounter
--- OUTSIDE RECORDS SUMMARY | 2024-05-02 12:05 | XMS_ITS | Encounter Summary ---
[place] [address] Care Team Providers Care Poultry Grader Name Role Phone Asia Gil DO Primary Care Provider +1- [phone] Reason for Visit * Reason Comments Back Pain * Consultation (Urgent) - Closed Specialty Diagnoses / Procedures Referred By Contac t Referred To Contact [facility] Diagnoses Other spondylosis with radiculopathy, lumbar region Degeneration of intervertebral disc at L5-S1 level lumbar stenosis/ BLE sx/ MRI & XR in eDH non op Morris Salas PA [facility] [place] [address] [facility] [place] [address] Referral ID Status Reason Start Date Expiration Date V isits Requested Visits Authorized [id number] Closed Consult, Test & Treat 12/22/2023 12/21/2024 1 1 Encounter Details Date Type Department Care Team (Latest Contact Info) Description 01/10/2024 9:30 AM EDT Office Visit [facility] [place] [address] Tifafnie Garza APRN [facility] [place] [address] Left lumbar radiculopathy Social History Tobacco Use Types Packs/Day Years [...] - Inhaled Oxygen Concentration - - Weight 75.3 kg (166 lb) 01/10/2024 9:32 AM EDT Height 160 cm (5' 3) 01/10/2024 9:32 AM EDT Body Mass Index 29.41 01/10/2024 9:32 AM EDT documented in this encounter Progress Notes * Tiffanie Garza, KURTIS - 01/10/2024 9:30 AM EDT [facility] Medical Decision Making: Toyin Coley is a 68 y.o. female seen today for a chief complaint of very specific left foot pain in the left medial arch and at the posterior aspect of the medial malleolus. The question has beenwhether or not her symptoms are associated with tarsal tunnel versus a lumbar radiculopathy. She has had a nondiagnostic injection with podiatry at [facility]. Today, I discussed with the patient that the pattern of her symptoms did not fit a classic lumbar radiculopathy however the specific area of slight discomfort is somewhat suggestive of potential L4 involvement. I do think it may be reasonable to consider a diagnostic epidural injection to see if this could make any significant difference in the foot pain on the left. Patient is amenable to moving forward with this and I will reconnect with her after the injection is completed to review her response as well as to discuss any further potential options. We very briefly discussed the role of surgery should the injection proved to bediagnostically helpful. Of note, she does have an extensive cardiac history and certainly, she would need some level of cardiac clearance prior to consideration of surgery. For now, we will start with a diagnostic injection and I will see her back once this is completed to evaluate response. Diagnosis: ICD-10-CM 1. Left lumbar radiculopathy M54.16 SURGICAL CASE REQUEST: INJECTION, EPIDURAL, LUMBAR OR SACRAL (CAUDAL), WITH IMAGING GUIDANCE (WRVU 1.8), Lumbar or Sacral Epidural Steroid Inj Sacral (Caudal) (26258) Plan Left L4-5 SHERIDAN Follow-up with me when the above is completed HPI Toyin Coley is a 68 y.o. female seen in referral today upon the request of Morris Salas for evaluation of a chief complaint of left lower extremity radicular pain.She was evaluated for this issue on 09/28/2023 within the orthopedic department reporting, at that time, her symptoms have been present for 9 months. She was subsequently referred for an MRI for further evaluation and subsequently here for further evaluation. Toyin reports that symptoms have been present for 2 years without accident, injury or trauma.. She reports foot pain on the left at the medial arch as well as posterior to the medial malleolus that does not radiate. There is numbness and tingling globally to the bilateral feet in the setting of known peripheral neuropathy.. There is a sense of weakness. There is no neurogenic claudication present. Symptoms are worsened with standing and walking. Symptoms are relieved with applications of ice to the foot . ROS A ten point review of systems was completed today and, of note, pertinent positives and negatives are indicated in the HPI. reports that she has never smoked. She has never used smokeless tobacco. Conservative Treatment: Physical Therapy: She has completed a full 12-week course of physical therapy without much improvement Home Exercise Program: Performed as tolerated Medications: Tylenol Tramadol-she uses this sparingly as this does cause a significant amount of constipation Other Treatments: Applications of ice Injections: Per patient report, she has had a diagnostic injection to the left foot without diagnostic response Physical Examination Wt Readings from Last 1 Encounters: 01/10/24 75.3 kg (166 lb) BMI Readings from Last 1 Encounters: 01/10/24 29.41 kg/m?? Pain: 6 (past 7 days pain lvl at lowest 4, highest 10) General: Pleasant, cooperative, Mood and affect are appropriate Posture: Upright Gait: Antalgic, favoring the left lower extremity Palpation: No palpable masses, lesions or deformities and Tenderness with light palpation of left medial arch of the foot Skin: Intact with no stigmata of underlying disease. ROM: deferred Sensation: Fairly diffuse altered sensation to bilateral feet Neuro: Strength: 5/5 throughout all muscle groups Reflexes: 2+ at the knees, 1+ at the ankles bilaterally Imaging and Test Review: On the day of this encounter, I independently reviewed an MRI of the lumbar spine was completed on 12/06/2023 demonstrating broad-based disc protrusion on the left greater than the right at L5-S1 withsevere left and moderate right foraminal stenosis. It is notable that on the formal radiological read, there apparently had been a prior left lateral disc herniation at L4-5 in the left foramen at which, in comparison to the most recent study, almost resolved. CC: Asia Gil DO Referring Provider: Morris Garza APRN 01/10/2024 [facility] documented in this encounter Plan of Treatment Upcoming Encounters Date Type Department Care Team (Latest Contact Info) Description 05/08/2024 10:30 AM EDT Hospital En[place] [address] Bk Contreras MD [facility] [place] [address] 05/08/2024 10:30 AM EDT - 05/08/2024 11:00 AM EDT [place] [phone] Bk Contreras MD [facility] [place] [address] INJECTION, ANESTHETIC AGENT AND/OR STEROID, TRANSFORAMINAL EPIDURAL, LUMBAR OR SACRAL, SINGLE LEVEL (WRVU 1.9) 05/12/2024 1:00 PM EDT Office Visit Cardiology at [address] [address] Sadi Styles MD [facility] [place] [address] 05/29/2024 10:15 AM EDT TH Visit (TeleHealth) [facility] [place] [phone] Natalee Sanchez APRN [facility] [place] [address] Scheduled Procedures Name Priority Associated Diagnoses Date/Ti me INJECTION, ANESTHETIC AGENT AND/OR STEROID, TRANSFORAMINAL EPIDURAL, LUMBAR OR SACRAL, SINGLE LEVEL (WRVU 1.9) Left lumbar radiculopathy 05/08/2024 10:30 AM EDT documented as of this encounter Visit Diagnoses Diagnosis Left lumbar radiculopathy Thoracic or lumbosacral neuritis or radiculitis, unspecified Left lumbar radiculopathy Thoracic or lumbosacral neuritis or radiculitis, unspecified documented in this encounter Care Teams Poultry Grader Relationship Specialty Start Date End Date Asia Gil DO [address] [place] [address] PCP - General Family Medicine 07/09/20 documented as of this encounter
--- OUTSIDE RECORDS SUMMARY | 2024-05-02 12:05 | XMS_ITS | Encounter Summary ---
Author Organization [facility] Address [facility] [place] [address] Care Team Providers Care Nuclear Technician Name Role Phone Asia Gil DO Primary Care Provider +1- [phone] Encounter Details Date Type Department Care Team (Late Contact Info) Description 08/10/2023 Orders Only Nephrology Hypertension at [facility] [place] [address] Magdaleno Dia MD [facility] [place] [address] Chronic kidney disease, unspecified CKD stage Social [...] 10:30 AM EDT Hospital [place] [phone] Bk Contreras MD [facility] [place] [address] 05/08/2024 10:30 AM EDT - 05/08/2024 11:00 AM [place] [phone] Bk Contreras MD [facility] [place] [address] INJECTION, ANESTHETIC AGENT AND/OR STEROID, TRANSFORAMINAL EPIDURAL, LUMBAR OR SACRAL, SINGLE LEVEL (WRVU 1.9) 05/12/2024 1:00 PM EDT Office Visit Cardiology at [place] [phone] Sadi Styles MD [facility] [place] [address] 05/29/2024 10:15 AM EDT TH Visit (TeleHealth) [place] [address] Natalee Sanchez, NON CLINICAL ADVISOR [facility] [place] [address] Scheduled Procedures Name Priority Associated Diagnoses Date/Ti me INJECTION, ANESTHETIC AGENT AND/OR STEROID, TRANSFORAMINAL EPIDURAL, LUMBAR OR SACRAL, SINGLE LEVEL (WRVU 1.9) Left lumbar radiculopathy 05/08/2024 10:30 AM EDT documented as of this encounter Results * Phosphorus (08/10/2023 2:00 PM EDT) Phosphorus 3.8 2.5 - 4.5 mg/dL [facility] Blood 08/10/2023 2:00 PM EDT 08/10/2023 2:18 PM EDT Narrative Resulting Agency Comment Spec In Lab Magdaleno Dia MD CHEMISTRY ORDERABLES Performing Organization Address [facility] Co de Phone Number [facility] [place] [address] * (ABNORMAL) PTH (08/10/2023 2:00 PM EDT) PTH 131(H) 15 - 65 pg/mL [facility] Blood 08/10/2023 2:00 PM EDT 08/10/2023 2:17 PM EDT Narrative Resulting Agency Comment Spec In Lab Magdaleno Dia MD CHEMISTRY ORDERABLES Performing Organization Address [facility] Phone Number [facility] [place] [address] * Vitamin D, 25-Hydroxy (08/10/2023 2:00 PM EDT) 25-OH Vit D Total 22 21 - 100 ng/mL [facility] 25-OH Vit D Interp Insufficient [facility] Blood 08/10/2023 2:00 PM EDT 08/10/2023 2:18 PM EDT Narrative Resulting Agency Comment Spec In Lab Magdaleno Dia MD CHEMISTRY ORDERABLES Performing Organization Address [facility] Co de Phone Number [facility] [place] [address] * (ABNORMAL) Basic Metabolic Panel (non-fasting) (08/10/2023 2:00 PM EDT) Glucose Lvl 108 65 - 199 mg/dL [facility] Comment:Diabetes: >=200 mg/d L plus symptoms BUN 53(H) 8 - 18 mg/dL [facility] Creatinine 1.78(H) 0.70 - 1.20 mg/dL [facility] Sodium 140 135 - 145 mmol/L [facility] Potassium 4.7 3.5 - 5.0 mmol/L [facility] Comment: Please note: ??Patients with WBC >100,000 may have falsely elevated Potassium levels. ??For accurate Potassium quantification in these patients send serum separator tube (gold top) for subsequent determinations. ??Contact the Clinical Chemistry Laboratory if there are any questions. Chloride 103 98 - 107 mmol/L [facility] CO2 23 22 - 31 mmol/L [facility] Anion Gap 14 5 - 15 mmol/L [facility] Calcium 9.8 8.5 - 10.5 mg/dL [facility] Estimated GFR 30(L) >=60 mL/min/1. 73 m?? [facility] Comment: This patient's estimated GFR was calculated using the 2020 CKD-EPI equation. The estimated GFR can vary from the measured GFR by up to 30% in the absence of rapidly changing kidney function. Assessment of the estimated GFR is not appropriate when creatinine concentrations are rapidly changing. For clinical situations in which a more precise estimate of GFR is necessary, consider alternative methods of GFR estimation such as a 24-hour urine creatinine clearance. Assignment of CKD stage 1-5 for patients with an eGFR near the transition point between stages may be based on clinical assessment of muscle mass and symptoms in addition to eGFR. Blood 08/10/2023 2:00 PM EDT 08/10/2023 2:18 PM EDT Narrative Resulting Agency Comment Spec In Lab Magdaleno Dia MD CHEMISTRY ORDERABLES [facility] [place] [address] * (ABNORMAL) Urinalysis with reflex Culture (08/10/2023 1:58 PM EDT) Glucose UA 100(A) Negative mg/dL [facility] Protein UA Negative Negative mg/dL [facility] Bilirubin UA Negative Negative mg/dL [facility] Comment: Clinical correlation required for positive Urine Bilirubin results as false positive may occur with some drugs and drug related products. If a false positive is suspected a serum total bilirubin should be considered if clinically indicated. Urobilinogen UA Normal Normal mg/dL [facility] pH UA 5.5 5.0 - 8.0 [facility] Blood UA Negative Negative mg/dL [facility] Ketones UA Negative Negative mg/dL [facility] Nitrite UA Negative Negative [facility] Leukocytes UA Negative Negative mcL [facility] Appearance UA Clear Clear [facility] Spec [place] UA 1.015 1.005 - 1.030 [facility] Color UA Yellow Yellow [facility] Culture Reflexed No [facility] Clean Catch Urine 08/10/2023 1:58 PM EDT 08/10/2023 2:20 PM EDT Narrative Resulting Agency Comment Spec In Lab Magdaleno Dia MD URINE ORDERABLES [facility] [place] [address] * U Albumin/Cre Ratio (08/10/2023 1:58 PM EDT) Alb/Cr Ratio, Random Not Calculated 0 - 29 mcg/mg Cr [facility] Comment: Reference Ranges: <30 mcg/mg: Normal 30-300 mcg/mg: Moderately increased albuminuria.* >300 mcg/mg: Severely increased albuminuria. * ACEI or ARB recommended if diabetic; suggested if BP>130/80 without diabetes ACEI or ARB strongly recommended if diabetic; recommended if BP>130/80 without diabetes Two of three specimens collected within a 3 to 6 month period should be abnormal before considering a patient to have albuminuria. Transient causes: exercise, fever, infection, CHF, marked hyperglycemia or hypertension. Persistent albuminuria indicates CKD and is an independent risk factor for ASCVD. ADA Standards of Medical Care in Diabetes-2016; KDIGO: Kidney International Supplements (2012) 2, 357? 362 U Albumin Conc, Random <3.0 mg/L [facility] U Creatinine 64 mg/dL [facility] Urine 08/10/2023 1:58 PM EDT 08/10/2023 2:20 PM EDT Narrative Resulting Agency Comment Spec In Lab Magdaleno Dia MD URINE ORDERABLES Performing Organization Address City/[facility]/ZIP Co de Phone Number [facility] [place] [address] * Protein/Creatinine Ratio, urine (08/10/2023 1:58 PM EDT) U Creatinine 64 mg/dL [facility] U Protein Ran 8 0 - 12 mg/dL [facility] Prot/Cre Ratio 0.1 ratio [facility] Urine 08/10/2023 1:58 PM EDT 08/10/2023 2:20 PM EDT Narrative Resulting Agency Comment Spec In Lab Magdaleno Dia MD URINE ORDERABLES Performing Organization Address City/[facility]/ZIP Co de Phone Number [facility] [place] [address] documented in this encounter Visit Diagnoses Diagnosis Chronic kidney disease, unspecified CKD stage Left lumbar radiculopathy Thoracic or lumbosacral neuritis or radiculitis, unspecified documented in this encounter Care Teams Nuclear Technician Relationship Specialty Start Date End Date Asia Gil DO [address] [place] [address] PCP - General Family Medicine 07/09/20 documented as of this encounter
--- OUTSIDE RECORDS SUMMARY | 2024-05-02 12:05 | XMS_ITS | Encounter Summary ---
[place] [address] Care Team Providers Care Assembly Department Supervisor Name Role Phone Asia Gil DO Primary Care Provider +1- [phone] Reason for Referral * Consultation (Routine) - [...] left ankle Achilles tendinitis, left leg Asia Gil DO [address] [place] [address] [facility] [address] [place] [id number] Referral ID Status Reason Start Date Expiration Date Visits Requested Visits Authorized [id number] Authorized Consult, Test & Treat PCP Updated and/or Approved 08/22/2024 6 6 Encounter Details Date Type Department Care Team (Latest Contact Info) Description 08/23/2023 Transcribe Orders eDH Incoming Referrals [phone] Asia Gil, DO [address] [place] [address] Hypertrophy of bone, left ankle and foot; Pain in right foot; Pain in left foot; Posterior tibial tendinitis of left leg; Peripheral vascular disease, unspecified; Tarsal tunnel syndrome, left lower limb; Other enthesopathy of unspecified foot and ankle; Unspecified mononeuropathy of bilateral lower limbs; Short Achilles tendon (acquired), left ankle; Achilles tendinitis, left leg Social History Tobacco Use Types Packs/Day Years [...] 10:30 AM EDT Hospital [place] [address] Bk Contreras MD [facility] [place] [address] 05/08/2024 10:30 AM EDT - 05/08/2024 11:00 AM [place] [phone] Bk Contreras MD [facility] [place] [address] INJECTION, ANESTHETIC AGENT AND/OR STEROID, TRANSFORAMINAL EPIDURAL, LUMBAR OR SACRAL, SINGLE LEVEL (WRVU 1.9) 05/12/2024 1:00 PM EDT Office Visit Cardiology at [address] [address] Sadi Styles MD [facility] [place] [place] [address] 05/29/2024 10:15 AM EDT TH Visit (TeleHealth) [place] [address] Natalee Sanchez APRN [facility] [place] [address] Scheduled Procedures Name Priority Associated Diagnoses Date/Ti me INJECTION, ANESTHETIC AGENT AND/OR STEROID, TRANSFORAMINAL EPIDURAL, LUMBAR OR SACRAL, SINGLE LEVEL (WRVU 1.9) Left lumbar radiculopathy 05/08/2024 10:30 AM EDT Scheduled Referrals Name Type Priority Associated Diagnoses Orde r Schedule Referral to Orthopaedics Outpatient Referral Routine Hypertrophy of bone, left ankle and foot Pain in right foot Pain in left foot Posterior tibial tendinitis of left leg Peripheral vascular disease, unspecified Tarsal tunnel syndrome, left lower limb Other enthesopathy of unspecified foot and ankle 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), left ankle Achilles tendinitis, left leg Ordered: 08/23/2023 documented as of this encounter Visit Diagnoses Diagnosis Hypertrophy of bone, left ankle and foot Pain in right foot Pain in limb Pain in left foot Pain in limb Posterior tibial tendinitis of left leg Tibialis tendinitis Peripheral vascular disease, unspecified Tarsal tunnel syndrome, left lower limb Other enthesopathy of unspecified foot and ankle 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
--- OUTSIDE RECORDS SUMMARY | 2024-05-02 12:05 | XMS_ITS | Encounter Summary ---
[place] [address] Care Team Providers Care Financial Planning Advisor Name Role Phone Asia Gil DO Primary Care Provider +1- [phone] Reason for Referral * Consultation (Routine) - Denied Specialty Diagnoses / Procedures Referred By Leonel chin Referred To Contact [facility] Diagnoses Tarsal tunnel syndrome, left Tawny Grullon DPM [address] [place] [address] [address] [place] [address] [facility] [place] [address] Referral ID Status Reason Start Date Expiration Date V isits Requested Visits Authorized [id number] Denied Consult, Test & Treat PCP Updated and/or Approved 06/28/2023 06/27/2024 1 0 Encounter Details Date Type Department Care Team (Late st Contact Info) Description 06/28/2023 Transcribe Orders eDH Incoming Referrals [phone] Tawny Grullon DPM [address] [facility] [address] [place] [address] Tarsal tunnel syndrome, left Social History Tobacco Use Types Packs/Day Years [...] 10:30 AM EDT Hospital Encounter Pain Management [place] [phone] Bk Contreras MD [facility] [place] [address] 05/08/2024 10:30 AM EDT - 05/08/2024 11:00 AM EDT Surgery Pain Management [place] [phone] Bk Contreras MD [facility] [address] INJECTION, ANESTHETIC AGENT AND/OR STEROID, TRANSFORAMINAL EPIDURAL, LUMBAR OR SACRAL, SINGLE LEVEL (WRVU 1.9) 05/12/2024 1:00 PM EDT Office Visit Cardiology at [place] [phone] Sadi Styles MD [facility] [place] [address] 05/29/2024 10:15 AM EDT TH Visit (TeleHealth) [place] [address] Natalee Sanchez, DIRECTOR SYSTEMS [facility] [place] [place] [address] Scheduled Procedures Name Priority Associated Diagnoses Date/Ti me INJECTION, ANESTHETIC AGENT AND/OR STEROID, TRANSFORAMINAL EPIDURAL, LUMBAR OR SACRAL, SINGLE LEVEL (WRVU 1.9) Left lumbar radiculopathy 05/08/2024 10:30 AM EDT Scheduled Referrals Name Type Priority Associated Diagnoses Order Schedule Referral to Pain Management Outpatient Referral Routine Tarsal tunnel syndrome, left Ordered: 06/28/2023 documented as of this encounter Visit Diagnoses Diagnosis Tarsal tunnel syndrome, left Left lumbar radiculopathy Thoracic or lumbosacral neuritis or radiculitis, unspecified documented in this encounter Care Teams Financial Planning Advisor Relationship Specialty Start Date End Date Asia Gil DO [address] [place] [address] PCP - General Family Medicine 07/09/20 documented as of this encounter
--- OUTSIDE RECORDS SUMMARY | 2024-05-02 12:05 | XMS_ITS | Encounter Summary ---
Author Organization [facility] [place] [address] Care Team Providers Care Clinical Support Specialist Name Role Phone Asia Gil DO Primary Care Provider +1- [phone] Encounter Details Date Type Department Care Team (Latest Contact Info) Description 02/11/2024 Travel Social History Tobacco Use Types Packs/Day [...] 10:30 AM EDT Hospital Encounter Pain Management [facility] [place] [address] Bk Contreras MD [facility] [place] [address] 05/08/2024 10:30 AM EDT - 05/08/2024 11:00 AM EDT [place] [address] Bk Contreras MD [facility] [place] [address] INJECTION, ANESTHETIC AGENT AND/OR STEROID, TRANSFORAMINAL EPIDURAL, LUMBAR OR SACRAL, SINGLE LEVEL (WRVU 1.9) 05/12/2024 1:00 PM EDT Office Visit Cardiology at [place] [phone] Sadi Styles MD [facility] [address] 05/29/2024 10:15 AM EDT TH Visit (TeleHealth) [facility] at [place] [phone] Natalee Sanchez APRN [facility] [place] [address] Scheduled Procedures Name Priority Associated Diagnoses Date/Ti me INJECTION, ANESTHETIC AGENT AND/OR STEROID, TRANSFORAMINAL EPIDURAL, LUMBAR OR SACRAL, SINGLE LEVEL (WRVU 1.9) Left lumbar radiculopathy 05/08/2024 10:30 AM EDT documented as of this encounter Visit Diagnoses Not on filedocumented in this encounter Care Teams Clinical Support Specialist Relationship Specialty Start Date End Date Asia Gil DO [address] [place] [address] PCP - General Family Medicine 07/09/20 documented as of this encounter
--- OUTSIDE RECORDS SUMMARY | 2024-05-02 12:05 | XMS_ITS | Encounter Summary ---
[place] [address] Care Team Providers Care Amphibious Operations Officer Name Role Phone Asia Gil DO Primary Care Provider +1- [phone] Encounter Details Date Type Department Care Team (Latest Contact Info) Description 08/10/2023 2:30 PM EDT Laboratory Appointment Lab [address] [place] [address] Chronic kidney disease, unspecified CKD stage Social [...] 10:30 AM EDT Hospital [place] [phone] Bk Contreras MD [facility] [place] [address] 05/08/2024 10:30 AM EDT - 05/08/2024 11:00 AM EDT Surgery Pain Management [place] [address] Bk Contreras MD [facility] [place] [address] INJECTION, ANESTHETIC AGENT AND/OR STEROID, TRANSFORAMINAL EPIDURAL, LUMBAR OR SACRAL, SINGLE LEVEL (WRVU 1.9) 05/12/2024 1:00 PM EDT Office Visit Cardiology at [place] [address] Sadi Styles MD [facility] [place] [address] 05/29/2024 10:15 AM EDT TH Visit (TeleHealth) [facility] at [place] [address] Natalee Sanchez APRN [facility] [place] [address] Scheduled Procedures Name Priority Associated Diagnoses Date/Ti me INJECTION, ANESTHETIC AGENT AND/OR STEROID, TRANSFORAMINAL EPIDURAL, LUMBAR OR SACRAL, SINGLE LEVEL (WRVU 1.9) Left lumbar radiculopathy 05/08/2024 10:30 AM EDT documented as of this encounter Procedures Procedure Name Priority Date/Time Associated Diagnosis Comments HC PARATHYROID HORMONE(PTH INTACT Routine 08/10/2023 2:00 PM EDT Chronic kidney disease, unspecified CKD stage HEMOGRAM Routine 08/10/2023 2:00 PM EDT Chronic kidney disease, unspecified CKD stage DIFFERENTIAL, AUTOMATED Routine 08/10/2023 2:00 PM EDT Chronic kidney disease, unspecified CKD stage HC VITAMIN D TOTAL-25 HYDROXY Routine 08/10/2023 2:00 PM EDT Chronic kidney disease, unspecified CKD stage HC CBC,PLT & AUTO DIFF Routine 08/10/2023 2:00 PM EDT Chronic kidney disease, unspecified CKD stage URIC ACID Routine 08/10/2023 2:00 PM EDT HC PHOSPHORUS, SERUM Routine 08/10/2023 2:00 PM EDT Chronic kidney disease, unspecified CKD stage BASIC METABOLIC PANEL (NON-FASTING) Routine 08/10/2023 2:00 PM EDT Chronic kidney disease, unspecified CKD stage HC PROTEIN, QUANTITATIVE, URINE Routine 08/10/2023 1:58 PM EDT Chronic kidney disease, unspecified CKD stage HC MICROALBUMIN, URINE Routine 08/10/2023 1:58 PM EDT Chronic kidney disease, unspecified CKD stage URINALYSIS WITH REFLEX CULTURE Routine 08/10/2023 1:58 PM EDT Chronic kidney disease, unspecified CKD stage documented in this encounter Results * (ABNORMAL) Uric acid (08/10/2023 2:00 PM EDT) Uric Acid 9.2(H) 2.5 - 6.5 mg/dL [facility] Blood Venous Draw / Unknown 08/10/2023 2:00 PM EDT 08/10/2023 2:24 PM EDT Narrative Resulting Agency Comment Spec In Lab Magdaleno Dia MD CHEMISTRY ORDERABLES [facility] [place] [address] * Differential, Automated (08/10/2023 2:00 PM EDT) Neutrophils % 62.2 % [facility] Neutr Abs (ANC) 5.87 1.70 - 6.10 x10(3)/[facility] Lymphocytes % 27.4 % [facility] Lymphocytes Abs 2.6 0.9 - 3.2 x10(3)/[facility] Monocytes % 8.7 % [facility] Monocyte Abs 0.8 0.3 - 0.9 x10(3)/[facility] Eosinophils % 1.2 % [facility] Eosinophils Abs 0.1 0.0 - 0.4 x10(3)/[facility] Basophils % 0.3 % [facility] Basophils Abs 0.0 0.0 - 0.1 x10(3)/[facility] Immature Gran % 0.20 % [facility] Comment: Immature granulocytes(IG's)percentage and absolute count will include metamyelocytes, myelocytes, and promyelocytes. Blood smears from CBCs yielding IG's will be scanned manually for concordance. If this scan disagrees with the automated IG or if promyelocytes are noted, a manual differential will be performed. Anya Gran Abs 0.02 0.00 - 0.04 x10(3)/[facility] Blood 08/10/2023 2:00 PM EDT 08/10/2023 2:17 PM EDT Narrative Resulting Agency Comment Spec In Lab Magdaleno Dia MD HEMATOLOGY ORDERABLE S [facility] [place] [address] * (ABNORMAL) Hemogram (08/10/2023 2:00 PM EDT) WBC 9.4 4.0 - 9.5 x10(3)/[facility] RBC 4.24 4.00 - 5.21 x10(6)/[facility] Hemoglobin 13.4 11.7 - 15.5 g/dL [facility] Hematocrit 40.7 35.7 - 45.8 % [facility] MCV 96.0(H) 82.6 - 94.4 [facility] MCH 31.6 27.1 - 32.0 pg [facility] MCHC 32.9 31.7 - 35.0 g/dL [facility] Platelets 184 145 - 357 x10(3)/[facility] RDWSD 45.7 37.0 - 46.0 [facility] RDWCV 12.9 11.5 - 14.1 % [facility] MPV 10.6 7.6 - 12.9 [facility] nRBC % Auto 0.0 % [facility] nRBC Abs Auto 0.000 0.000 - 0.000 x10(3)/[facility] Blood 08/10/2023 2:00 PM EDT 08/10/2023 2:17 PM EDT Narrative Resulting Agency Comment Spec In Lab Magdaleno Dia MD HEMATOLOGY ORDERABLE S [facility] [place] [address] * (ABNORMAL) Basic Metabolic Panel (non-fasting) (08/10/2023 2:00 PM EDT) Glucose Lvl 108 65 - 199 mg/dL [facility] Comment:Diabetes: >=200 mg/d L plus symptoms BUN 53(H) 8 - 18 mg/dL [facility] Creatinine 1.78(H) 0.70 - 1.20 mg/dL [facility] Sodium 140 135 - 145 mmol/L [facility] Potassium 4.7 3.5 - 5.0 mmol/L [facility] Comment: Please note: ??Patients with WBC >100,000 may have falsely elevated Potassium levels. ??For accurate Potassium quantification in these patients send serum separator tube (gold top) for subsequent determinations. ??Contact the Clinical Chemistry Laboratory if there are any questions. Chloride 103 98 - 107 mmol/L [facility] CO2 23 22 - 31 mmol/L [facility] Anion Gap 14 5 - 15 mmol/L [facility] Calcium 9.8 8.5 - 10.5 mg/dL [facility] Estimated GFR 30(L) >=60 mL/min/1. 73 m?? [facility] Comment: This patient's estimated GFR [...] Dia MD CHEMISTRY ORDERABLES Performing Organization Address City/[facility]/ZIP Co de Phone Number [facility] [place] [address] * Vitamin D, 25-Hydroxy (08/10/2023 2:00 PM EDT) 25-OH Vit D Total 22 21 - 100 ng/mL [facility] 25-OH Vit D Interp Insufficient [facility] Blood 08/10/2023 2:00 PM EDT 08/10/2023 2:18 PM EDT Narrative Resulting Agency Comment Spec In Lab Magdaleno Dia MD CHEMISTRY ORDERABLES [facility] [place] [address] * (ABNORMAL) PTH (08/10/2023 2:00 PM EDT) PTH 131(H) 15 - 65 pg/mL [facility] Blood 08/10/2023 2:00 PM EDT 08/10/2023 2:17 PM EDT Narrative Resulting Agency Comment Spec In Lab Magdaleno Dia MD CHEMISTRY ORDERABLES [facility] [place] [address] * Phosphorus (08/10/2023 2:00 PM EDT) Phosphorus 3.8 2.5 - 4.5 mg/dL [facility] Blood 08/10/2023 2:00 PM EDT 08/10/2023 2:18 PM EDT Narrative Resulting Agency Comment Spec In Lab Magdaleno Dia MD CHEMISTRY ORDERABLES Performing Organization Address City/[facility]/ZIP Co de Phone Number [facility] [place] [address] * Protein/Creatinine Ratio, urine (08/10/2023 1:58 PM EDT) U Creatinine 64 mg/dL [facility] U Protein Ran 8 0 - 12 mg/dL [facility] Prot/Cre Ratio 0.1 ratio [facility] Urine 08/10/2023 1:58 PM EDT 08/10/2023 2:20 PM EDT Narrative Resulting Agency Comment Spec In Lab Magdaleno Dia MD URINE ORDERABLES [facility] [place] [address] * U Albumin/Cre Ratio (08/10/2023 1:58 PM EDT) Alb/Cr Ratio, Random Not Calculated 0 - 29 mcg/mg Cr [facility] Comment: Reference Ranges: <30 mcg/mg: [...] 362 U Albumin Conc, Random <3.0 mg/L [facility] U Creatinine 64 mg/dL [facility] Urine 08/10/2023 1:58 PM EDT 08/10/2023 2:20 PM EDT Narrative Resulting Agency Comment Spec In Lab Magdaleno Dia MD URINE ORDERABLES [facility] [place] [address] * (ABNORMAL) Urinalysis with reflex Culture (08/10/2023 1:58 PM EDT) Glucose UA 100(A) Negative mg/dL [facility] Protein UA Negative Negative mg/dL [facility] Bilirubin UA Negative Negative mg/dL [facility] Comment: Clinical correlation required for positive Urine Bilirubin results as false positive may occur with some drugs and drug related products. If a false positive is suspected a serum total bilirubin should be considered if clinically indicated. Urobilinogen UA Normal Normal mg/dL [facility] pH UA 5.5 5.0 - 8.0 [facility] Blood UA Negative Negative mg/dL [facility] Ketones UA Negative Negative mg/dL [facility] Nitrite UA Negative Negative [facility] Leukocytes UA Negative Negative mcL [facility] Appearance UA Clear Clear [facility] Spec [place] UA 1.015 1.005 - 1.030 [facility] Color UA Yellow Yellow [facility] Culture Reflexed No [facility] Clean Catch Urine 08/10/2023 1:58 PM EDT 08/10/2023 2:20 PM EDT Narrative Resulting Agency Comment Spec In Lab Magdaleno Dia MD URINE ORDERABLES [facility] [place] [address] documented in this encounter Visit Diagnoses Diagnosis Chronic kidney disease, unspecified CKD stage Left lumbar radiculopathy Thoracic or lumbosacral neuritis or radiculitis, unspecified documented in this encounter Care Teams Amphibious Operations Officer Relationship Specialty Start Date End Date Asia Gil DO [address] [place] [address] PCP - General Family Medicine 07/09/20 documented as of this encounter
--- OUTSIDE RECORDS SUMMARY | 2024-05-02 12:05 | XMS_ITS | Encounter Summary ---
[place] [address] Care Team Providers Care Import Export Coordinator Name Role Phone Asia Gil DO Primary Care Provider +1- [phone] Encounter Details Date Type Department Care Team (Late st Contact Info) Description 01/18/2024 External Results [place] [address] Linda Schneider, TARIK Social History Tobacco Use Types Packs/Day Years Used Date Smoking Tobacco: Never Smokeless Tobacco: Never Comments:uses medical yumiko nader Alcohol Use Standard Drinks/Week Comments Not Currently 0 (1 standard drink = 0.6 oz pur e alcohol) 12 years ago [facility] Inpatient Questions Answer Date Recorded Prevent [...] 10:30 AM EDT Hospital [place] [address] Bk Contreras MD [facility] [place] [address] 05/08/2024 10:30 AM EDT - 05/08/2024 11:00 AM EDT Surgery Pain Management [place] [phone] Bk Contreras MD [facility] [place] [address] INJECTION, ANESTHETIC AGENT AND/OR STEROID, TRANSFORAMINAL EPIDURAL, LUMBAR OR SACRAL, SINGLE LEVEL (WRVU 1.9) 05/12/2024 1:00 PM EDT Office Visit Cardiology at [place] [phone] Sadi Styles MD [facility] [place] [address] 05/29/2024 10:15 AM EDT TH Visit (TeleHealth) [facility] and Spine Center at [place] [phone] Natalee Sanchez, KURTIS [facility] [place] [address] Scheduled Procedures Name Priority Associated Diagnoses Date/Ti me INJECTION, ANESTHETIC AGENT AND/OR STEROID, TRANSFORAMINAL EPIDURAL, LUMBAR OR SACRAL, SINGLE LEVEL (WRVU 1.9) Left lumbar radiculopathy 05/08/2024 10:30 AM EDT documented as of this encounter Procedures Procedure Name Priority Date/Time Associated Diagnosis Comments BASIC METABOLIC PANEL (NON-FASTING) Routine 11/16/2023 documented in this encounter Results * Basic Metabolic Panel (non-fasting) (11/16/2023) Glucose Lvl 218 BUN 37 Creatinine 1.7 Estimated GFR 32.06 Sodium 137 Potassium 4.4 Chloride 101 CO2 27 Calcium 9.9 Anion Gap 9 Magnesium 2.0 mg/dL Blood 11/16/2023 Historical Provider MD CHEMISTRY ORDERAB LES documented in this encounter Visit Diagnoses Not on filedocumented in this encounter Care Teams Import Export Coordinator Relationship Specialty Start Date End Date Asia Gil DO [address] [place] [address] PCP - General Family Medicine 07/09/20 documented as of this encounter
--- OUTSIDE RECORDS SUMMARY | 2024-05-02 12:05 | XMS_ITS | Encounter Summary ---
Author Organization [place] [address] Care Team Providers Care Bridal Sales Consultant Name Role Phone Asia Gil DO Primary Care Provider +1- [phone] Encounter Details Date Type Department Care Team (Latest Contact Info) Description 01/12/2024 4:20 PM EDT TH Visit (TeleHealth) Cardiology at [address] [phone] Saqib Sanchez MD [facility] [place] [address] Coronary artery disease involving knik coronary artery of knik heart without angina pectoris Social History Tobacco Use Types Packs/Day Years Used Date Smoking Tobacco: Never Smokeless Tobacco: Never Comments:uses medical yumiko nader Alcohol Use Standard Drinks/Week Comments Not Currently 0 (1 standard drink = 0.6 oz pur e alcohol) 12 years ago [facility] Inpatient Questions Answer Date Recorded Prevent [...] as of this encounter Progress Notes * Saqib Sanchez MD - 01/12/2024 4:20 PM EDT Phone Call-TeleHealth Visit 68 female with longstanding CAD, MS and PVASC disease who had previously followed by Ro Cruz MD, Ihave not had contact with previously (Please see is note 11/2022). The patient is .'seen' today n [facility] at her request. The patient is being evaluated by pain clinic who is planing spinalinjections. The patient would like guidance regarding her anti-platelet therapy Patient has longstanding CAD who's most recent PC-Stent to LAD in . Patient is currently on ASA 81 mg which she is tolerating and reports good adherence. Cardiac ROS: Patient specifically denies symptoms consistent with right or left ventricular failure. Palpitations, pre-syncope or syncope. Angina or anginal equivalents. Patient reports a sedentary lifestyle limited by her pain syndrome Neuro ROS: Patient specifically denies symptoms consistent with recurrent TIA/Stroke Assessment and Plan CAD s/p PCI Stent Pre Procedure evaluation 68 yo female with CAD with stable symptoms ~3 years s/p PCI stenting. With respect to evaluation prior to her planned spinal injection, do not believe additional evaluation is required. I would recommend continuing ASA . I outlined this recommendation to the patient who appeared to understand. Saqib Sanchez MD [facility] road cleaner Pager 2020 documented in this encounter Plan of Treatment Upcoming Encounters Date Type Department Care Team (Latest Contact Info) Description 05/08/2024 10:30 AM EDT Hospital Encounter [place] [address] Bk Contreras MD [facility] [place] [address] 05/08/2024 10:30 AM EDT - 05/08/2024 11:00 AM EDT Surgery [place] [address] Bk Contreras MD [facility] [place] [address] INJECTION, ANESTHETIC AGENT AND/OR STEROID, TRANSFORAMINAL EPIDURAL, LUMBAR OR SACRAL, SINGLE LEVEL (WRVU 1.9) 05/12/2024 1:00 PM EDT Office Visit Cardiology at [address] [phone] Sadi Styles MD [facility] [place] [address] 05/29/2024 10:15 AM EDT TH Visit (TeleHealth) [place] [phone] Natalee Sanchez APRN [facility] [place] [address] Scheduled Procedures Name Priority Associated Diagnoses Date/Ti me INJECTION, ANESTHETIC AGENT AND/OR STEROID, TRANSFORAMINAL EPIDURAL, LUMBAR OR SACRAL, SINGLE LEVEL (WRVU 1.9) Left lumbar radiculopathy 05/08/2024 10:30 AM EDT documented as of this encounter Visit Diagnoses Diagnosis Coronary artery disease involving knik coronary artery of knik heart without angina pectoris Left lumbar radiculopathy Thoracic or lumbosacral neuritis or radiculitis, unspecified documented in this encounter Care Teams Bridal Sales Consultant Relationship Specialty Start Date End Date Asia Gil DO [address] [place] [address] PCP - General Family Medicine 07/09/20 documented as of this encounter
--- OUTSIDE RECORDS SUMMARY | 2024-05-02 12:05 | XMS_ITS | Encounter Summary ---
[place] [address] Care Team Providers Care Telephone Operator Name Role Phone Asia Gil DO Primary Care Provider +1- [phone] Reason for Referral * Consultation (Urgent) - Closed Specialty Diagnoses / Procedures Referred By Leonel chin Referred To Contact [facility] Diagnoses Other spondylosis with radiculopathy, lumbar region Degeneration of intervertebral disc at L5-S1 level lumbar stenosis/ BLE sx/ MRI & XR in eDH non op Morris Salas PA [facility] [place] [address] [facility] [place] [address] Referral ID Status Reason Start Date Expiration Date V isits Requested Visits Authorized [id number] Closed Consult, Test & Treat 12/22/2023 12/21/2024 1 1 Reason for Visit * Reason Comments Follow-up NXR L FOOT OPTION S MRI RESULTS Encounter Details Date Type Department Care Team (Latest Contact Info) Description 12/22/2023 4:00 PM EDT Office [place] [address] Morris Salas PA [facility] [place] [address] Other spondylosis with radiculopathy, lumbar region; Degeneration of intervertebral disc at L5-S1 level Social History Tobacco Use Types Packs/Day Years [...] - - Weight 75.3 kg (166 lb) 12/22/2023 3:48 PM EDT Height 160 cm (5' 3) 12/22/2023 3:48 PM EDT Body Mass Index 29.41 12/22/2023 3:48 PM EDT documented in this encounter Progress Notes * Morris Salas PA - 12/22/2023 4:00 PM EDT Images from the original note were not included. PATIENT NAME: Toyin Coley AGE: 68 y.o. MR#: [id number] DATE OF VISIT: 12/22/2023 STAFF: Morris Salas PA-C FOLLOW UP FOR: L5-S1 radiculopathy HISTORY OF PRESENT ILLNESS: Ms. Coley is a 68 y.o. female who comes into clinic today for follow up of the above. She did receive a lumbar spine MRI which shows some impingement of the L5-S1 nerve root which would explain the shooting sensations that she is experiencing. She she did forward her EMG results to me as well which did show some latency of the tibial nerve however there was no diagnostic interpretation of the EMG that was sent. She is hoping that we can give her a referral to somebody who could potentially perform an injection or further intervention for her radicular symptoms asthese are extremely debilitating for her. Medications and Allergies were reviewed in eD-H [...] CT Guided Drain Pancreatic/Peripancreatic 02/20/2021 Mauro Thomas, [facility] RAD CAT SCAN IR DRAIN CHECK/CHANGE/REMOVE 03/13/2021 IR Drain Check/Change/Remove 03/13/[address] [facility] INTERVENTIONL RAD PRO ENDOSCOPIC US EXAM, ESOPH N/A 01/18/2023 UPPER EUS- ENDOSCOPIC ULTRASOUND (WRVU 3.47) performed by Jordan Dowling MD at [facility] ENDOSCOPY PRO ERCP,DIAGNOSTIC N/A 01/17/2021 ERCP performed by Eliel Leigh MD at [facility] ENDOSCOPY PRO UP GI ENDOSCOPY, REMV TUMOR, SNARE 01/18/2023 EGD, W REMOVAL TUMOR/POLYPS/LESIONS BY SNARE TECHNIQUE (WRVU 3.47) performed by Jordan Dowling MD at [facility] ENDOSCOPY PRO UPPER GI ENDOSCOPY, BIOPSY N/A 01/18/2023 EGD WITH BIOPSY (WRVU 2.39) performed by Jordan Dowling MD at [facility] ENDOSCOPY FAMILY HX: Family History Problem Relation Age of Onset Diabetes Mother Colorectal Cancer Neg Hx Inflammatory Bowel Disease Neg Hx Celiac Disease Neg Hx Esophageal Cancer Neg Hx Stomach Cancer Neg Hx Pancreatic Cancer Neg Hx SOCIAL HX: Social History Occupational History Not on file Tobacco Use Smoking status: Never Smokeless tobacco: Never Tobacco comments: uses medical Atieva Vaping Use Vaping Use: Never used Substance and Sexual Activity Alcohol use: Not Currently Comment: 12 years ago Drug use: Yes Frequency: 7.0 times per week Types: Marijuana Comment: Medical Sexual activity: Not Currently No data to display No data to display No data to display PHYSICAL EXAM: Ms. Coley is a 68 y.o. female General appearance: in no acute distress, alert, cooperative Psych: cooperative with exam, appropriate Head: normocephalic, atraumatic EENT: EOMI grossly intact Neck: supple, trachea midline Cardiac: regular rate and rhythm by peripheral pulse Lungs: no extra work of breathing Musculoskeletal: Physical exam of the left lower extremity reveals a warm and well-perfused foot with limited dorsiflexion to about neutral degrees. The patient has strong inversion as well as a strong eversion but little to no tenderness to palpation along the posterior tibial tendon or navicular pole. DIAGNOSTIC STUDIES: No new diagnostic images performed today. ASSESSMENT: Left foot pain in the distribution of the L5-S1 distribution PLAN: At this point in time I do think that it would be prudent for the patient to be referred to pain and spine in order to be evaluated for treatment of her radicular symptoms. She does have a history ofchronic kidney disease as well as heart failure which complicate her ability to go under anesthesiabut would still like the consult in order to discuss intervention. I will send over referral and message our colleagues so that she can be seen at their soonest convenience. The patient expressed agreement with and understanding of this plan of care. The patient understands to contact us if they have any other questions or concerns. The above documentation was completed using Ex[employer]ite voice recognition software. Morris Salas PA-C, [facility] Department of Orthopaedics [facility] Pager [phone] documented in this encounter Plan of Treatment Upcoming Encounters Date Type Department Care Team (Latest Contact Info) Description 05/08/2024 10:30 AM EDT Hospital En[place] [address] Bk Contreras MD [facility] [place] [address] 05/08/2024 10:30 AM EDT - 05/08/2024 11:00 AM EDT [place] [phone] Bk Contreras MD [facility] [place] [address] INJECTION, ANESTHETIC AGENT AND/OR STEROID, TRANSFORAMINAL EPIDURAL, LUMBAR OR SACRAL, SINGLE LEVEL (WRVU 1.9) 05/12/2024 1:00 PM EDT Office Visit Cardiology at [address] [address] Sadi Styles MD [facility] [place] [address] 05/29/2024 10:15 AM EDT TH Visit (TeleHealth) [place] [phone] Natalee Sanchez APRN [facility] [place] [address] Scheduled Procedures Name Priority Associated Diagnoses Date/Ti me INJECTION, ANESTHETIC AGENT AND/OR STEROID, TRANSFORAMINAL EPIDURAL, LUMBAR OR SACRAL, SINGLE LEVEL (WRVU 1.9) Left lumbar radiculopathy 05/08/2024 10:30 AM EDT Scheduled Referrals Name Type Priority Associated Diagnoses Orde r Schedule Referral to [facility] and Sp[facility] Center (Internal only) Outpatient Referral Urgent Other spondylosis with radiculopathy, lumbar region Degeneration of intervertebral disc at L5-S1 level Ordered: 12/22/2023 documented as of this encounter Visit Diagnoses Diagnosis Other spondylosis with radiculopathy, lumbar region Degeneration of intervertebral disc at L5-S1 level Left lumbar radiculopathy Thoracic or lumbosacral neuritis or radiculitis, unspecified documented in this encounter Care Teams Telephone Operator Relationship Specialty Start Date End Date Asia Gil DO [address] [place] [address] PCP - General Family Medicine 07/09/20 documented as of this encounter
--- OUTSIDE RECORDS SUMMARY | 2024-05-02 12:05 | XMS_ITS | Encounter Summary ---
Author Organization [facility] [place] [address] Care Team Providers Care Repairer Resistance Welding Machines Name Role Phone Asia Gil DO Primary Care Provider +1- [phone] Encounter Details Date Type Department Care Team (Latest Contact Info) Description 09/28/2023 Travel Social History Tobacco Use Types Packs/Day [...] AM EDT Hospital Encounter Pain Management [facility] [place] [address] Bk Contreras MD [facility] [place] [address] 05/08/2024 10:30 AM EDT - 05/08/2024 11:00 AM EDT [place] [address] Bk Contreras MD [facility] [address] INJECTION, ANESTHETIC AGENT AND/OR STEROID, TRANSFORAMINAL EPIDURAL, LUMBAR OR SACRAL, SINGLE LEVEL (WRVU 1.9) 05/12/2024 1:00 PM EDT Office Visit Cardiology at [place] [phone] Sadi Styles MD [facility] [place] [address] 05/29/2024 10:15 AM EDT TH Visit (TeleHealth) [facility] at [place] [phone] Natalee Sanchez APRN [facility] [place] [address] Scheduled Procedures Name Priority Associated Diagnoses Date/Ti me INJECTION, ANESTHETIC AGENT AND/OR STEROID, TRANSFORAMINAL EPIDURAL, LUMBAR OR SACRAL, SINGLE LEVEL (WRVU 1.9) Left lumbar radiculopathy 05/08/2024 10:30 AM EDT documented as of this encounter Visit Diagnoses Not on filedocumented in this encounter Care Teams Repairer Resistance Welding Machines Relationship Specialty Start Date End Date Asia Gil DO [address] [place] [address] PCP - General Family Medicine 07/09/20 documented as of this encounter
--- OUTSIDE RECORDS SUMMARY | 2024-05-02 12:05 | XMS_ITS | Encounter Summary ---
Author Organization [facility] [address] Care Team Providers Care Lead Cargo Mover Name Role Phone Asia Gil DO Primary Care Provider +1- [phone] Encounter Details Date Type Department Care Team (Late st Contact Info) Description 10/27/2023 6:00 PM EST Ancillary Procedure [place] [phone] Asia Gil, [address] [place] [address] Social History Tobacco Use Types Packs/Day [...] 10:30 AM EDT Hospital Encounter [place] [phone] Bk Contreras MD [facility] [place] [address] 05/08/2024 10:30 AM EDT - 05/08/2024 11:00 AM EDT [place] [phone] Bk Contreras MD [facility] [place] [address] INJECTION, ANESTHETIC AGENT AND/OR STEROID, TRANSFORAMINAL EPIDURAL, LUMBAR OR SACRAL, SINGLE LEVEL (WRVU 1.9) 05/12/2024 1:00 PM EDT Office Visit Cardiology at [address] [phone] Sadi Styles MD [facility] [place] [address] 05/29/2024 10:15 AM EDT TH Visit (TeleHealth) [facility] [place] [phone] Natalee Sanchez, TOWEL SEWER [facility] [place] [address] Scheduled Procedures Name Priority Associated Diagnoses Date/Ti me INJECTION, ANESTHETIC AGENT AND/OR STEROID, TRANSFORAMINAL EPIDURAL, LUMBAR OR SACRAL, SINGLE LEVEL (WRVU 1.9) Left lumbar radiculopathy 05/08/2024 10:30 AM EDT documented as of this encounter Procedures Procedure Name Priority Date/Time Associated Diagnosis Comments FILM LIBRARY STORAGE ONLY ULTRASOUND STUDY Routine 10/27/2023 5:55 PM EST documented in this encounter Results * Film Library- Storage Only Ultrasound Study (10/27/2023 5:55 PM EST) Narrative TAHIR SÁNCHEZ - 10/27/2023 5:55 PM EST This exam is auto-finalizing. It's purpose is for storage only. Asia Gil DO IMG FILM LIBRARY O RDERABLES [place], [place] documented in this encounter Visit Diagnoses Not on filedocumented in this encounter Care Teams Lead Cargo Mover Relationship Specialty Start Date End Date Asia Gil DO [address] [facility] [place] [address] PCP - General Family Medicine 07/09/20 documented as of this encounter
--- OUTSIDE RECORDS SUMMARY | 2024-05-02 12:05 | XMS_ITS | Encounter Summary ---
Author Organization [facility] [place] [address] Care Team Providers Care Catalyst Unit Operator Name Role Phone Asia Gil DO Primary Care Provider +1- [phone] Encounter Details Date Type Department Care Team (Latest Contact Info) Description 06/28/2023 Travel Social History Tobacco Use Types Packs/Day [...] EDT Hospital Encounter Pain Management [facility] [place] [address] Bk Contreras MD [facility] [place] [address] 05/08/2024 10:30 AM EDT - 05/08/2024 11:00 AM EDT [place] [address] Bk Contreras MD [facility] [place] [address] INJECTION, ANESTHETIC AGENT AND/OR STEROID, TRANSFORAMINAL EPIDURAL, LUMBAR OR SACRAL, SINGLE LEVEL (WRVU 1.9) 05/12/2024 1:00 PM EDT Office Visit Cardiology at [place] [phone] Sadi Styles MD [facility] [place] [address] 05/29/2024 10:15 AM EDT TH Visit (TeleHealth) [facility] Sp[facility] at [place] [phone] Natalee Sanchez APRN [facility] [address] Scheduled Procedures Name Priority Associated Diagnoses Date/Ti me INJECTION, ANESTHETIC AGENT AND/OR STEROID, TRANSFORAMINAL EPIDURAL, LUMBAR OR SACRAL, SINGLE LEVEL (WRVU 1.9) Left lumbar radiculopathy 05/08/2024 10:30 AM EDT documented as of this encounter Visit Diagnoses Not on filedocumented in this encounter Care Teams Catalyst Unit Operator Relationship Specialty Start Date End Date Asia Gil DO [address] [place] [address] PCP - General Family Medicine 07/09/20 documented as of this encounter
--- OUTSIDE RECORDS SUMMARY | 2024-05-02 12:05 | XMS_ITS | Encounter Summary ---
Author Organization [facility] [place] [address] Care Team Providers Care Director Of Social Work Name Role Phone Asia Gil DO Primary Care Provider +1- [phone] Encounter Details Date Type Department Care Team (Latest Contact Info) Description 01/10/2024 Travel Social History Tobacco Use Types Packs/Day [...] 10:30 AM EDT Hospital Encounter Pain Management [place] [address] Bk Contreras MD [facility] [place] [address] 05/08/2024 10:30 AM EDT - 05/08/2024 11:00 AM EDT [place] [address] kB Contreras MD [facility] [place] [address] INJECTION, ANESTHETIC AGENT AND/OR STEROID, TRANSFORAMINAL EPIDURAL, LUMBAR OR SACRAL, SINGLE LEVEL (WRVU 1.9) 05/12/2024 1:00 PM EDT Office Visit Cardiology at [place] [phone] Sadi Styles MD [facility] [place] [address] 05/29/2024 10:15 AM EDT TH Visit (TeleHealth) [facility] Sp[facility] at [place] [phone] Natalee Sanchez APRN [facility] [address] Scheduled Procedures Name Priority Associated Diagnoses Date/Ti me INJECTION, ANESTHETIC AGENT AND/OR STEROID, TRANSFORAMINAL EPIDURAL, LUMBAR OR SACRAL, SINGLE LEVEL (WRVU 1.9) Left lumbar radiculopathy 05/08/2024 10:30 AM EDT documented as of this encounter Visit Diagnoses Not on filedocumented in this encounter Care Teams Director Of Social Work Relationship Specialty Start Date End Date Asia Gil DO [address] [place] [address] PCP - General Family Medicine 07/09/20 documented as of this encounter
--- OUTSIDE RECORDS SUMMARY | 2024-05-02 12:05 | XMS_ITS | Encounter Summary ---
Author Organization [facility] [place] [address] Care Team Providers Care Knowledge Engineer Name Role Phone Asia Gil DO Primary Care Provider +1- [phone] Encounter Details Date Type Department Care Team (Late st Contact Info) Description 12/06/2023 4:25 PM EST Ancillary Procedure [place] [phone] Asia Gil, [address] [place] [address] Social History Tobacco Use Types Packs/Day [...] 10:30 AM EDT Hospital Encounter [place] [phone] Bk Contreras MD [facility] [place] [address] 05/08/2024 10:30 AM EDT - 05/08/2024 11:00 AM EDT Surgery [place] [phone] Bk Contreras MD [facility] [place] [address] INJECTION, ANESTHETIC AGENT AND/OR STEROID, TRANSFORAMINAL EPIDURAL, LUMBAR OR SACRAL, SINGLE LEVEL (WRVU 1.9) 05/12/2024 1:00 PM EDT Office Visit Cardiology at [address] [phone] Sadi Styles MD [facility] [place] [address] 05/29/2024 10:15 AM EDT TH Visit (TeleHealth) [facility] [place] [phone] Natalee Sanchez, STORAGE CENTER MANAGER [facility] [place] [address] Scheduled Procedures Name Priority Associated Diagnoses Date/Ti me INJECTION, ANESTHETIC AGENT AND/OR STEROID, TRANSFORAMINAL EPIDURAL, LUMBAR OR SACRAL, SINGLE LEVEL (WRVU 1.9) Left lumbar radiculopathy 05/08/2024 10:30 AM EDT documented as of this encounter Procedures Procedure Name Priority Date/Time Associated Diagnosis Comments FILM LIBRARY STORAGE ONLY MR PELVIS Routine 12/06/2023 4:15 PM EST documented in this encounter Results * Film Library- Storage Only MR Pelvis (12/06/2023 4:15 PM EST) Narrative TAHIR PRINCESS - 12/06/2023 4:15 PM EST This exam is auto-finalizing. It's purpose is for storage only. Asia Gil DO IMG FILM LIBRARY O RDERABLES [place], [place] documented in this encounter Visit Diagnoses Not on filedocumented in this encounter Care Teams Knowledge Engineer Relationship Specialty Start Date End Date Asia Gil DO [address] [facility] [place] [address] PCP - General Family Medicine 07/09/20 documented as of this encounter
--- OUTSIDE RECORDS SUMMARY | 2024-05-02 12:06 | XMS_ITS | Encounter Summary ---
Author Organization [facility] [place] [address] Care Team Providers Care Community Education Specialist Name Role Phone Asia Gil DO Primary Care Provider +1- [phone] Encounter Details Date Type Department Care Team (Late st Contact Info) Description 05/21/2022 Telephone Cardiology at [address] [phone] Janae Samson RN Social History Tobacco Use Types Packs/Day Years Used Date Smoking Tobacco: Never Smokeless Tobacco: Never Comments:uses medical yumiko nader Alcohol Use Standard Drinks/Week Comments Not Currently 0 (1 standard drink = 0.6 oz pur e alcohol) 12 years ago Sex and Gender Information Value Date Recorded Sex Assigned at Not on file Gender Identity Not on file Sexual Orientation Not on file documented as of this encounter Miscellaneous Notes * Addendum Note - Leida Ramirez RN - 05/28/2022 2:02 PM EDTAddended by: LEIDA RAMIREZ on: 05/28/2022 02:02 PM Modules accepted: Orders * Telephone Encounter - Leida Ramirez RN - 05/28/2022 1:55 PM EDT Appreciate Mr. Yates's expert review and direction. Called Ms. Coley in follow up. Reviewed recommendations to stop Clopidogrel (affirmed) but to continue daily Aspirin 81 mg. Voiced understanding and appreciation for review and follow up today. Call placed to [facility], office of Dr. Samanta Sanchez connection with Nurse Alyssia. Reviewedsame. Understanding verified by repeat back method. Alyssia voiced appreciation for today's review and follow up. Will adjust their records accordingly and inform Dr. Gil when she returns from her vacation. Chase Ramirez global analytics head Team Nurse [facility] Ambulatory Cardiology * Telephone Encounter - Janae Samson RN - 05/21/2022 4:12 PM EDT PCP calling to check and make sure that it is alright for patient to stop taking her clopidogrel asit has been one year since her 04/11/21 cath procedure- since is this not specifically mentioned in Dr. Cruz's 04/23/22 office note- Toyin Coley is a 67 y.o. female patient presenting for an outpatient cardiology visit for the following cardiovascular conditions: Hx-TIA (transient ischemic attack) ?? Hyperlipidemia, unspecified hyperlipidemia type ?? Hypertension, unspecified type ?? HFrEF (heart failure with reduced ejection fraction) ?? ASCVD (arteriosclerotic cardiovascular disease) ?? Coronary artery disease, unspecified vessel or lesion type, unspecified whether angina present, unspecified whether [place] or transplanted heart ?? Unstable angina ?? PVD (peripheral vascular disease) with claudication ?? Moderate mitral stenosis ?? 1. Coronary disease. Calcified??severe 2 vessel CAD of the LAD and RCA and moderate but hemodynamically significant LCX??disease.?? She underwent a PCI of the calcified LAD on 04/11/2021 for her symptoms of angina. We perfromed a PCI of the angulated and heavily calcified mid LAD using a 2.5 x 24 mm SYNERGY XD ASIM stent . She has LCX and RCA disease, which we continue to medically manage. Successfully completed cardiac rehab. After that she was quite active and going to phase 3 cardiac rehab program 2 times a week. At that time she was doing quite well. Her neuropathy was well controlled on gabapentin. About 3 weeks ago her gabapentin was reduced for concerns of renal disease. Since then Toyin has been miserable. Her neuropathy is extremely severe, she is in pain all the time. She is unable to walk. She states, there are nights I am crying due to the constant interval pain. Even the sheets touching her feet is agonizing. She sleeps with her feet hanging off the bed. Her sleep quality is hence poor. From a cardiovascular perspective continues to do well. Her main complaint today is leg pain. She has both PVD and neuropathy and follows with vascular. Recent ABIs were performed which noted only mild occlusive disease. I advise she continue her phase 3 cardiac rehab program. I have advised her to reach her PCP for her severe neuropathy. Her lipids and LDL are still 97. I will start Zetia 10 mg daily. ?? 2. CHF, EF 40%, mod MS mild , valvular heart disease. She appears euvolemic today, no edema and symptoms of shortness of breath are improving. She shouldcontinue Torsemide 20 mg daily. We will repeat an echo. ?? 3. Diabetes. I advised strict control ?? 4. CVD. Stable ?? 5. CKD. We will check a repeat BMP ?? 6. Hypertension. As above ?? Thank you for the opportunity to take care of Toyin Coley. ??Sincerely, ? Dr. Antonio Cruz MD MS NIC Forwarded to Dr. Cruz for his consideration. Janae Samson RN, BSN Ambulatory Cardiology Department Covering for Chase Ramirez RN documented in this encounter Plan of Treatment Upcoming Encounters Date Type Department Care Team (Latest Contact Info) Description 05/08/2024 10:30 AM EDT Hospital Encounter [place] [address] Bk Contreras MD [facility] [place] [address] 05/08/2024 10:30 AM EDT - 05/08/2024 11:00 AM EDT [place] [address] Bk Contreras MD [facility] [place] [address] INJECTION, ANESTHETIC AGENT AND/OR STEROID, TRANSFORAMINAL EPIDURAL, LUMBAR OR SACRAL, SINGLE LEVEL (WRVU 1.9) 05/12/2024 1:00 PM EDT Office Visit Cardiology at [address] [phone] Sadi Styles MD [facility] [place] [address] 05/29/2024 10:15 AM EDT TH Visit (TeleHealth) Pain [place] [phone] Natalee Sanchez APRN [facility] [place] [address] Scheduled Procedures Name Priority Associated Diagnoses Date/Ti me INJECTION, ANESTHETIC AGENT AND/OR STEROID, TRANSFORAMINAL EPIDURAL, LUMBAR OR SACRAL, SINGLE LEVEL (WRVU 1.9) Left lumbar radiculopathy 05/08/2024 10:30 AM EDT documented as of this encounter Visit Diagnoses Not on filedocumented in this encounter Care Teams Community Education Specialist Relationship Specialty Start Date End Date Asia Gil DO [address] [place] [address] PCP - General Family Medicine 07/09/20 documented as of this encounter
--- OUTSIDE RECORDS SUMMARY | 2024-05-02 12:06 | XMS_ITS | Encounter Summary ---
Author Organization [facility] [place] [address] Care Team Providers Care Rotary Cutter Operator Name Role Phone Asia Gil DO Primary Care Provider [phone] Encounter Details Date Type Department Care Team (Latest Contact Info) Description 02/02/2023 Travel Social History Tobacco Use Types Packs/Day [...] 10:30 AM EDT Hospital Encounter Pain Management [facility] [place] [phone] Bk Contreras MD [facility] [place] [address] 05/08/2024 10:30 AM EDT - 05/08/2024 11:00 AM EDT [place] [phone] Bk Contreras MD [facility] [place] [address] INJECTION, ANESTHETIC AGENT AND/OR STEROID, TRANSFORAMINAL EPIDURAL, LUMBAR OR SACRAL, SINGLE LEVEL (WRVU 1.9) 05/12/2024 1:00 PM EDT Office Visit Cardiology at [place] [phone] Sadi Styles MD [facility] [place] [address] 05/29/2024 10:15 AM EDT TH Visit (TeleHealth) [facility] at [place] [phone] Natalee Sanchez APRN [facility] [address] Scheduled Procedures Name Priority Associated Diagnoses Date/Ti me INJECTION, ANESTHETIC AGENT AND/OR STEROID, TRANSFORAMINAL EPIDURAL, LUMBAR OR SACRAL, SINGLE LEVEL (WRVU 1.9) Left lumbar radiculopathy 05/08/2024 10:30 AM EDT documented as of this encounter Visit Diagnoses Not on filedocumented in this encounter Care Teams Rotary Cutter Operator Relationship Specialty Start Date End Date Asia Gil DO [address] [place] [address] PCP - General Family Medicine 07/09/20 documented as of this encounter
--- OUTSIDE RECORDS SUMMARY | 2024-05-02 12:06 | XMS_ITS | Encounter Summary ---
[place] [address] Care Team Providers Care Drum Filler Name Role Phone Asia Gil DO Primary Care Provider [phone] Reason for Referral * Diagnostic Test (Routine) - Closed Specialty Diagnoses / Procedures Referred By Leonel chin Referred To Contact Radiology Diagnoses Renal mass Procedures MRI Abdomen wwo Contrast (Generic) Magdaleno Dia MD [facility] [place] [address] [place] [address] Referral ID Status Reason Start Date Expiration Date V isits Requested Visits Authorized [id number] Closed Specialty Service Requested 01/01/2023 07/04/2024 1 1 Encounter Details Date Type Department Care Team (Latest Contact Info) Description 01/01/2023 9:30 AM EDT Office Visit [place] [address] Magdaleno Dia MD [facility] [place] [address] Renal mass; Chronic kidney disease, unspecified CKD stage Social [...] Sign Reading Time Taken Comments Blood Pressure 119/57 01/01/2023 9:44 AM EDT Pulse 85 01/01/2023 9:44 AM EDT Temperature - - Respiratory Rate - - Oxygen Saturation - - Inhaled Oxygen Concentration - - Weight 77.6 kg (171 lb) 01/01/2023 9:44 AM EDT Height 160 cm (5' 3) 01/01/2023 9:44 AM EDT Body Mass Index 30.29 01/01/2023 9:44 AM EDT documented in this encounter Progress Notes * Magdaleno Dia MD - 01/01/2023 9:30 AM EDT PATIENT: Toyin Coley : 1955 Interval history: Patient had fall approximately a month ago complicated by pelvic fracture. She reports slipping on ice. She did not receive surgery reports doing better on this front. She did have a CT scan in that setting which demonstrated bilateral renal cysts that she inquires about. Assessment/Plan: #Chronic Kidney disease Stage??liley stage III/A2-3: CR?1.71 mg/dl??->??eGFR ml/min??32 mL/min per external labs in November 2022. Of note BUN to creatinine ratio 25 suggestive of some element of azotemia. Furthermore patient does have eGFR fluctuation reflective of hemodynamic pattern over the previous several years we have than the stage III range.? Potassium well-controlled at 4.5 mmol/L.??Microalbuminuria present suspect diabetic diseas e.?Significant neuropathy. ??Reports occasional NSAID use. ??History of Garcia cirrhosis appears well compensated. ??Patient taking PPI no evidence of pyuria. ??Plan: Will send formal UA and??for surveillance of proteinuria (microalbumin/UPC). ?? If creatinine continues to downtrend would consider holding torsemide focusing on hydration and reassess. We will shorten interval between appointments until we get a better sense of renal stability. Empagliflozin 10 mg plus lisinopril 2.5 mg twice daily We will order MRI to better characterize complex cyst demonstrated on CT scan from November 2022 ?? #Hemodynamics?? Hypertension??well controlled blood pressure 119/57. ??Encourage patient to continue home blood pressure monitoring Antihypertensives:??,??metoprolol 50 mg, torsemide 20 mg. Lisinopril 2.5 mg twice daily Volume Status:??Patient appears euvolemic Patient appears well compensated from a cardiopulmonary standpoint. ??Significant coronary artery disease patient is on aspirin, beta-caridad and high intensity statin. ?? #Hemoglobin Most recent hemoglobin??12.2??g/dL. Iron stores are acceptable Goal Hgb 10-12g/dl, Ferritin>100ng/ml, TSAT>20% ?? #Acid/Base status Most recent Bicarb?31??mmol/L not consistent with acidosis. Possible some element of contractionwhich would go along with azotemia as noted above in this patient on diuretics. Would Add NaHCO3 if serum bicarb persistently < 22mmol/l ?? #Bone Mineral Health Goal and stage 3 PTH: 35-70 pg/ml ?Phos 2.7-4.6 ??Ca 8.5-10.5mg/dl Renal Clinic Follow-Up Plan: 6 months Past Medical History: Diagnosis Date ??? CKD (chronic kidney disease) 04/05/2020 ??? Delirium 04/05/2020 ??? Diabetes mellitus type 2, uncomplicated 05/14/2014 ??? Hx-TIA (transient ischemic attack) 05/14/2014 ??? Hyperlipidemia 05/28/2014 Off statin due to foot pain side effect ??? Hypertension 05/28/2014 ??? Restless legs syndrome (RLS) 04/05/2020 Past Surgical History: Procedure Laterality Date ??? CT GUIDED DRAIN PANCREATIC/PERIPANCREATIC 02/20/2021 CT Guided Drain Pancreatic/Peripancreatic 02/20/2021 Mauro Thomas, DO [facility] RAD CAT SCAN ??? IR DRAIN CHECK/CHANGE/REMOVE 03/13/2021 IR Drain Check/Change/Remove 03/13/2021 Chris Jamil MD [facility] INTERVENTIONL RAD ??? PRO ERCP,DIAGNOSTIC N/A 01/17/2021 ERCP performed by Eliel Leigh MD at [facility] ENDOSCOPY Family History Problem Relation Age of Onset ??? Colorectal Cancer Neg Hx ??? Inflammatory Bowel Disease Neg Hx ??? Celiac Disease Neg Hx ??? Esophageal Cancer Neg Hx ??? Stomach Cancer Neg Hx ??? Pancreatic Cancer Neg Hx Social History Social History Narrative Lives by herself with one daughter who lives ~9 miles away from her. Responsible for her own ADLs. Manages her own medications Outpatient medications: Current Outpatient Medications on File Prior to Visit Medication Sig Dispense Refill ??? amitriptyline (Elavil) 25 mg Tablet Take 50 mg by mouth nightly. ??? OneTouch Ultra Test Strip CHECK BLOOD SUGAR DAILY ??? diclofenac (Voltaren) 1 % Gel APPLY 4 GRAMS TOPICALLY TO THE AFFECTED AREA FOUR TIMES DAILY. CONTINUE TOPICAL NSAID FOR FOOT PAIN ??? Jardiance 10 mg Tablet Take 10 mg by mouth daily. ??? torsemide (Demadex) 10 mg Tablet Take 10 mg by mouth daily. ??? isosorbide mononitrate CR (Imdur) 30 mg Tablet Sustained Release 24 hr Take 1 tablet by mouth every morning. 30 tablet 12 ??? nitroGLYcerin (Nitrostat) 0.4 mg Tablet, Sublingual Take 0.4 mg by mouth as needed. ??? ondansetron (Zofran) 4 mg Tablet Take 4 mg by mouth as needed. ??? Lantus Solostar U-100 Insulin pen 11 Units. ??? OneTouch Ultra2 Meter Misc USE DIRECTED TO TEST BLOOD GLUCOSE ??? OneTouch Delica Plus Lancet 33 gauge Misc USE TO TEST BLOOD SUGAR DAILY ??? BD Dionna 2nd Gen Pen Needle 32 gauge x 5/32 Needle USE WITH DAILY INSULIN ??? aspirin 81 mg Tablet, Chewable Take 81 mg by mouth daily. 90 tablet 3 ??? melatonin 3 mg Tablet Take 2 tablets by mouth nightly. 180 tablet 3 ??? traZODone (Desyrel) 50 mg Tablet Take 0.5 tablets by mouth nightly. (Patient taking differently: Take 50 mg by mouth nightly.) 45 tablet 3 ??? oxyCODONE (Roxicodone) 5 mg Tablet Take 1 tablet by mouth every 8 hours as needed for Pain. 15 tablet 0 ??? polyethylene glycoL (Miralax) 17 gram Powder in Packet Take 17 g by mouth daily. (Patient taking differently: Take 17 g by mouth as needed. Every other day) 14 each 0 ??? acetaminophen (Tylenol) 325 mg Tablet Take 2 tablets by mouth every 4 hours as needed for Pain.30 tablet 1 ??? calcium carbonate (Tums) 200 mg calcium (500 mg) Tablet, Chewable Take 1-2 tablets by mouth every 4 hours as needed for Heartburn. ??? gabapentin (Neurontin) 100 mg Capsule Take 2 capsules by mouth 2 times daily. (Patient taking differently: Take 300 mg by mouth 3 times daily.) 90 capsule 12 ??? atorvastatin (Lipitor) 40 mg Tablet Take 1 tablet by mouth every evening. 90 tablet 3 ??? metoprolol succinate XL (Toprol-XL) 50 mg Tablet Sustained Release 24 hr Take 1 tablet by mouthdaily. 30 tablet 12 ??? DULoxetine DR (Cymbalta) 30 mg Capsule, Delayed Release(E.C.) Take 1 capsule by mouth daily. (Patient taking differently: Take 20 mg by mouth daily.) 30 tablet 11 ??? pantoprazole EC (Protonix) 40 mg Tablet, Delayed Release (E.C.) Take 1 tablet by mouth daily. 90 tablet 3 No current facility-administered medications on file prior to visit. MEDICATIONS: Allergies Allergen Reactions ??? Benzodiazepines Other (See Comments) Paradoxical reaction to benzodiazepines ??? House Dust ??? Hydrocodone-Acetaminophen Itching ??? Metoclopramide ??? Mold Extracts ??? Pollen Extracts ??? Propoxyphene Hcl Nausea And Vomiting ??? Unknown [Unclassified Drug] Most environmental allergies: grass, [...] No weakness. No numbness/ tingling in extremities. MSK- No joint pain/swelling PHYSICAL EXAM: Last value Temperature Heart Rate Blood Pressure Respiratory Rate SpO2 Interval history: 30 minutes spent on encounter greater than 50% direct corporate travel counselor with patient Magdaleno Dia MD, MPH Section of Nephrology #[id number] documented in this encounter Miscellaneous Notes * Addendum Note - Magdaleno Dia MD - 01/01/2023 9:30 AM EDTAddended by: MAGDALENO DIA on: 01/01/2023 12:11 PM Modules accepted: Orders documented in this encounter Plan of Treatment Upcoming Encounters Date Type Department Care Team (Latest Contact Info) Description 05/08/2024 10:30 AM EDT Hospital [place] [address] Bk Contreras MD [facility] [place] [address] 05/08/2024 10:30 AM EDT - 05/08/2024 11:00 AM ED[place] [phone] Bk Contreras MD [facility] [place] [address] INJECTION, ANESTHETIC AGENT AND/OR STEROID, TRANSFORAMINAL EPIDURAL, LUMBAR OR SACRAL, SINGLE LEVEL (WRVU 1.9) 05/12/2024 1:00 PM EDT Office Visit Cardiology at [address] [phone] Sadi Styles MD [facility] [place] [address] 05/29/2024 10:15 AM EDT TH Visit (TeleHealth) [facility] [place] [phone] Natalee Sanchez, [facility] [place] [address] Scheduled Procedures Name Priority Associated Diagnoses Date/Ti me INJECTION, ANESTHETIC AGENT AND/OR STEROID, TRANSFORAMINAL EPIDURAL, LUMBAR OR SACRAL, SINGLE LEVEL (WRVU 1.9) Left lumbar radiculopathy 05/08/2024 10:30 AM EDT documented as of this encounter Procedures Procedure Name Priority Date/Time Associated Diagnosis Comments HC PARATHYROID HORMONE(PTH INTACT Routine 01/01/2023 10:34 AM EDT Chronic kidney disease, unspecified CKD stage HEMOGRAM Routine 01/01/2023 10:34 AM EDT Chronic kidney disease, unspecified CKD stage DIFFERENTIAL, AUTOMATED Routine 01/01/2023 10:34 AM EDT Chronic kidney disease, unspecified CKD stage HC VITAMIN D TOTAL-25 HYDROXY Routine 01/01/2023 10:34 AM EDT Chronic kidney disease, unspecified CKD stage HC CBC,PLT & AUTO DIFF Routine 01/01/2023 10:34 AM EDT Chronic kidney disease, unspecified CKD stage HC PHOSPHORUS, SERUM Routine 01/01/2023 10:34 AM EDT Chronic kidney disease, unspecified CKD stage BASIC METABOLIC PANEL (NON-FASTING) Routine 01/01/2023 10:34 AM EDT Chronic kidney disease, unspecified CKD stage HC PROTEIN, QUANTITATIVE, URINE Routine 01/01/2023 10:00 AM EDT Chronic kidney disease, unspecified CKD stage HC MICROALBUMIN, URINE Routine 01/01/2023 10:00 AM EDT Chronic kidney disease, unspecified CKD stage documented in this encounter Results * MRI Abdomen wwo Contrast (Generic) (04/10/2023 1:43 PM EDT) Anatomical Region Laterality Modality Abdomen Magnetic Resonan ce Impressions 04/11/2023 10:08 AM EDT Bilateral mixed benign simple and hemorrhagic/proteinaceous renal cysts. ??No enhancing or suspicious renal lesions. Thank you for letting us participate in the care of this patient. ??If you are a health care provider and have any questions regarding this report, please contact the number below. ??For patients who have questions please contact the health director of medicare that requested your imaging first. ? Electronically signed by: Mauro Thomas DO, [facility] ([phone]), at 04/11/2023 10:08 AM Narrative 04/11/2023 10:08 AM EDT EXAMINATION: MRI ABDOMEN WWO CONTRAST (GENERIC) CLINICAL HISTORY: Indeterminate right renal lesion on outside CT. ??Follow-up. TECHNIQUE: MRI of the abdomen prior to and following the intravenous administration of 16ml Dotarem. COMPARISON: Correlation is made to CT of the abdomen and pelvis dated March 13, 2021. ??The outside CT examination for this examination was performed is not provided for comparison. FINDINGS: Hop Separator Images: Noncontributory. Lower chest: Visualized structures within the inferior thorax are within normal limits. Liver: Normal. Bile ducts: Normal. Gallbladder: Surgically absent with surgical clips within the gallbladder fossa. Pancreas: Normal. Spleen: Normal. Adrenals: Normal. Kidneys: There are a combination of T1 hyperintense/T2 hypointense and T2 hypointense/T1 hyperintense lesions bilaterally. ??On postcontrast imaging, best appreciated on the subtraction weighted imaging, none of these lesions enhance and are consistent with both simple and hemorrhagic/proteinaceous renal cysts. There are no enhancing renal lesions. Vasculature: The aorta is normal in course and caliber. ??The origin the mesenteric and renal arteries are within normal limits. ??The inferior vena cava is normal in course and caliber. ??The superior mesenteric, splenic, and portal veins are patent. ??The hepatic veins are patent. ??The renal veins are patent. Lymph nodes: There are no pathologically enlarged lymph nodes. Bowel: Limited evaluation of the distal esophagus is unremarkable. ??The stomach is partially distended. ??The duodenum is normal in course and caliber. ??The remainder of the visualized small and large bowel are within normal limits. Peritoneum and mesentery: No ascites or loculated fluid collection. Marrow Signal: Normal. Procedure Note Mauro Thomas, - 04/11/2023 EXAMINATION: MRI ABDOMEN WWO CONTRAST (GENERIC) CLINICAL HISTORY: Indeterminate right renal lesion on outside CT.Follow-up. TECHNIQUE: MRI of the abdomen prior to and following the intravenous administration of 16ml Dotarem. COMPARISON: Correlation is made to CT of the abdomen and pelvis dated 2020. The outside CT examination for this examination was performed isnot provided for comparison. FINDINGS: Hop Separator Images: Noncontributory. Lower chest: Visualized structures within the inferior thorax are withinnormal limits. Liver: Normal. Bile ducts: Normal. Gallbladder: Surgically absent with surgical clips within the gallbladderfossa. Pancreas: Normal. Spleen: Normal. Adrenals: Normal. Kidneys: There are a combination of T1 hyperintense/T2 hypointense andT2 hypointense/T1 hyperintense lesions bilaterally. On postcontrast imaging,best appreciated on the subtraction weighted imaging, none of these lesionsenhance and are consistent with both simple and hemorrhagic/proteinaceous renalcysts. There are no enhancing renal lesions. Vasculature: The aorta is normal in course and caliber. The origin the mesenteric and renal arteries are within normal limits. The inferior venacava is normal in course and caliber. The superior mesenteric, splenic, andportal veins are patent. The hepatic veins are patent. The renal veins arepatent. Lymph nodes: There are no pathologically enlarged lymph nodes. Bowel: Limited evaluation of the distal esophagus is unremarkable. Thestomach is partially distended. The duodenum is normal in course and caliber.The remainder of the visualized small and large bowel are within normallimits. Peritoneum and mesentery: No ascites or loculated fluid collection. Marrow Signal: Normal. IMPRESSION Bilateral mixed benign simple and hemorrhagic/proteinaceous renal cysts.No enhancing or suspicious renal lesions. Thank you for letting us participate in the care of this patient. If youare a health care provider and have any questions regarding this report,please contact the number below. For patients who have questions please contactthe health director of medicare that requested your imaging first. Electronically signed by: Mauro Thomas DO, [facility]([phone]), at 04/11/2023 10:08 AM Magdaleno Dia MD IMG MRI ORDERABLES * Differential, Automated (01/01/2023 10:34 AM EDT) Neutrophils % 59.8 % [facility] Neutr Abs (ANC) 4.48 1.70 - 6.10 x10(3)/[facility] Lymphocytes % 31.7 % [facility] Lymphocytes Abs 2.4 0.9 - 3.2 x10(3)/[facility] Monocytes % 6.5 % [facility] Monocyte Abs 0.5 0.3 - 0.9 x10(3)/[facility] Eosinophils % 1.3 % [facility] Eosinophils Abs 0.1 0.0 - 0.4 x10(3)/[facility] Basophils % 0.4 % [facility] Basophils Abs 0.0 0.0 - 0.1 x10(3)/[facility] Immature Gran % 0.30 % [facility] Comment: Immature granulocytes(IG's)percentage and absolute count will include metamyelocytes, myelocytes, and promyelocytes. Blood smears from CBCs yielding IG's will be scanned manually for concordance. If this scan disagrees with the automated IG or if promyelocytes are noted, a manual differential will be performed. Anya Gran Abs 0.02 0.00 - 0.04 x10(3)/[facility] Blood 01/01/2023 10:3 4 AM EDT 01/01/2023 10:39 AM EDT Narrative Resulting Agency Comment Spec In Lab Magdaleno Dia MD HEMATOLOGY ORDERABLE S [facility] [place] [place] [address] * (ABNORMAL) Hemogram (01/01/2023 10:34 AM EDT) WBC 7.5 4.0 - 9.5 x10(3)/[facility] RBC 3.82(L) 4.00 - 5.21 x10(6)/[facility] Hemoglobin 12.0 11.7 - 15.5 g/dL [facility] Hematocrit 37.0 35.7 - 45.8 % [facility] MCV 96.9(H) 82.6 - 94.4 [facility] MCH 31.4 27.1 - 32.[address] [facility] MCHC 32.4 31.7 - 35.0 g/dL [facility] Platelets 190 145 - 357 x10(3)/[facility] RDWSD 45.3 37.0 - 46.0 [facility] RDWCV 12.8 11.5 - 14.1 % [facility] MPV 10.0 7.6 - 12.9 [facility] nRBC % Auto 0.0 % [facility] nRBC Abs Auto 0.000 0.000 - 0.000 x10(3)/[facility] Blood 01/01/2023 10:3 4 AM EDT 01/01/2023 10:39 AM EDT Narrative Resulting Agency Comment Spec In Lab Magdaleno Dia MD HEMATOLOGY ORDERABLE S [facility] [place] [place] [address] * (ABNORMAL) Basic Metabolic Panel (non-fasting) (01/01/2023 10:34 AM EDT) Glucose Lvl 175 65 - 199 mg/dL [facility] Comment:Diabetes: >=200 mg/d L plus symptoms BUN 38(H) 8 - 18 mg/dL [facility] Creatinine 1.55(H) 0.70 - 1.20 mg/dL [facility] Sodium 141 135 - 145 mmol/L [facility] Potassium 4.6 3.5 - 5.0 mmol/L [facility] Comment: Please note: ??Patients with WBC >100,000 may have falsely elevated Potassium levels. ??For accurate Potassium quantification in these patients send serum separator tube (gold top) for subsequent determinations. ??Contact the Clinical Chemistry Laboratory if there are any questions. Chloride 103 98 - 107 mmol/L [facility] CO2 26 22 - 31 mmol/L [facility] Anion Gap 12 5 - 15 mmol/L [facility] Calcium 10.1 8.5 - 10.5 mg/dL [facility] Estimated GFR 36(L) >=60 mL/min/1. 73 m?? [facility] Comment: This patient's estimated GFR [...] and symptoms in addition to eGFR. Blood 01/01/2023 10:3 4 AM EDT 01/01/2023 10:39 AM EDT Narrative Resulting Agency Comment Spec In Lab Magdaleno Dia MD CHEMISTRY ORDERABLES [facility] [place] [address] * Phosphorus (01/01/2023 10:34 AM EDT) Phosphorus 3.4 2.5 - 4.5 mg/dL [facility] Blood 01/01/2023 10:3 4 AM EDT 01/01/2023 10:39 AM EDT Narrative Resulting Agency Comment Spec In Lab Magdaleno Dia MD CHEMISTRY ORDERABLES Performing Organization Address City/[facility]/ZIP Co de Phone Number [facility] [place] [address] * (ABNORMAL) PTH (01/01/2023 10:34 AM EDT) PTH 112(H) 15 - 65 pg/mL [facility] Blood 01/01/2023 10:3 4 AM EDT 01/01/2023 10:39 AM EDT Narrative Resulting Agency Comment Spec In Lab Magdaleno Dia MD CHEMISTRY ORDERABLES Performing Organization Address City/[facility]/ZIP Co de Phone Number [facility] [place] [place] [address] * Vitamin D, 25-Hydroxy (01/01/2023 10:34 AM EDT) 25-OH Vit D Total 22 21 - 100 ng/mL [facility] 25-OH Vit D Interp Insufficient [facility] Blood 01/01/2023 10:3 4 AM EDT 01/01/2023 10:39 AM EDT Narrative Resulting Agency Comment Spec In Lab Magdaleno Dia MD CHEMISTRY ORDERABLES Performing Organization Address City/[facility]/ZIP Co de Phone Number [facility] [place] [address] * Protein/Creatinine Ratio, urine (01/01/2023 10:00 AM EDT) U Creatinine 29 mg/dL [facility] U Protein Ran 6 0 - 12 mg/dL [facility] Prot/Cre Ratio 0.[address] [facility] Urine 01/01/2023 10:0 0 AM EDT 01/01/2023 12:56 PM EDT Narrative Resulting Agency Comment Spec In Lab Magdaleno Dia MD URINE ORDERABLES Performing Organization Address City/[facility]/ZIP Co de Phone Number [facility] [place] [address] * U Albumin/Cre Ratio (01/01/2023 10:00 AM EDT) Alb/Cr Ratio, Random 21 0 - 29 mcg/mg Cr [facility] Comment: Reference Ranges: <30 mcg/mg: [...] 2, 357? 362 U Albumin Conc, Random 6.0 mg/L [facility] U Creatinine 29 mg/dL [facility] Urine 01/01/2023 10:0 0 AM EDT 01/01/2023 12:56 PM EDT Narrative Resulting Agency Comment Spec In Lab Magdaleno Dia MD URINE ORDERABLES Performing Organization Address City/[facility]/ZIP Co de Phone Number [facility] [place] [address] documented in this encounter Visit Diagnoses Diagnosis Renal mass Unspecified disorder of kidney and ureter Chronic kidney disease, unspecified CKD stage Renal mass Unspecified disorder of kidney and ureter Left lumbar radiculopathy Thoracic or lumbosacral neuritis or radiculitis, unspecified documented in this encounter Care Teams Drum Filler Relationship Specialty Start Date End Date Asia Gil DO [address] [place] [address] PCP - General Family Medicine 07/09/20 documented as of this encounter
--- OUTSIDE RECORDS SUMMARY | 2024-05-02 12:06 | XMS_ITS | Encounter Summary ---
[place] [address] Care Team Providers Care Hydraulic Jack Mechanic Name Role Phone Asia Gil DO Primary Care Provider +1- [phone] Reason for Referral * Consultation (Routine) - Closed Specialty Diagnoses / Procedures Referred By Leonel chin Referred To Contact Vascular Surgery Diagnoses Peripheral vascular disease, unspecified ROUTINE, DONNA, ADRY Tawny Grullon DPM [address] [place] [address] [address] [place] [address] [facility] [address] [place] [address] Referral ID Status Reason Start Date Expiration Date V isits Requested Visits Authorized [id number] Closed Consult, Test & Treat 05/18/2023 05/17/2024 1 1 Encounter Details Date Type Department Care Team (Late st Contact Info) Description 05/18/2023 Transcribe Orders eDH Incoming Referrals [phone] Tawny Grullon DPM [address] [place] [address] [address] [place] [address] Peripheral vascular disease, unspecified Social History Tobacco Use Types Packs/Day Years Used Date Smoking Tobacco: Never Smokeless Tobacco: Never Comments:uses medical yumiko nader Alcohol Use Standard Drinks/Week Comments Not Asked 0 (1 standard drink = 0.6 oz pur e alcohol) 12 years ago [facility] Inpatient Questions Answer Date Recorded Prevent [...] 10:30 AM EDT Hospital Encounter Pain Management [place] [phone] Bk Contreras MD [facility] [place] [address] 05/08/2024 10:30 AM EDT - 05/08/2024 11:00 AM EDT Surgery Pain Management [place] [phone] Bk Contreras MD [facility] [place] [address] INJECTION, ANESTHETIC AGENT AND/OR STEROID, TRANSFORAMINAL EPIDURAL, LUMBAR OR SACRAL, SINGLE LEVEL (WRVU 1.9) 05/12/2024 1:00 PM EDT Office Visit Cardiology at [address] Sadi Styles MD [facility] [place] [address] 05/29/2024 10:15 AM EDT TH Visit (TeleHealth) [facility] at [place] [phone] Natalee Sanchez, CLOTH BLEACHING RANGE BACK TENDER [facility] [place] [address] Scheduled Procedures Name Priority Associated Diagnoses Date/Ti me INJECTION, ANESTHETIC AGENT AND/OR STEROID, TRANSFORAMINAL EPIDURAL, LUMBAR OR SACRAL, SINGLE LEVEL (WRVU 1.9) Left lumbar radiculopathy 05/08/2024 10:30 AM EDT Scheduled Referrals Name Type Priority Associated Diagnoses Orde r Schedule Referral to Vascular Surgery Outpatient Referral Routine Peripheral vascular disease, unspecified Ordered: 05/18/2023 documented as of this encounter Visit Diagnoses Diagnosis Peripheral vascular disease, unspecified Left lumbar radiculopathy Thoracic or lumbosacral neuritis or radiculitis, unspecified documented in this encounter Care Teams Hydraulic Jack Mechanic Relationship Specialty Start Date End Date Asia Gil DO [address] [place] [address] PCP - General Family Medicine 07/09/20 documented as of this encounter
--- OUTSIDE RECORDS SUMMARY | 2024-05-02 12:06 | XMS_ITS | Encounter Summary ---
[place] [address] Care Team Providers Care Drying Oven Attendant Name Role Phone Asia Gil DO Primary Care Provider +1- [phone] Reason for Referral * Diagnostic Test (Routine) - Closed Specialty Diagnoses / Procedures Referred By Leonel chin Referred To Contact Diagnoses Pain in both feet Procedures ADRY, legs, multiple levels Buck Buchanan APRN [facility] [place] [address] [facility] [address] [place] [address] Referral ID Status Reason Start Date Expiration Date V isits Requested Visits Authorized [id number] Closed Specialty Service Requested 05/20/2023 05/19/2024 1 1 Encounter Details Date Type Department Care Team (Late st Contact Info) Description 05/20/2023 Orders [place] [address] Buck Buchanan APRN [facility] [place] [address] Pain in both feet Social History Tobacco Use Types Packs/Day Years Used Date Smoking Tobacco: Never Smokeless Tobacco: Never Comments:uses medical yumiko nader Alcohol Use Standard Drinks/Week Comments Not Asked 0 (1 standard drink = 0.6 oz pur e alcohol) 12 years ago [facility] Inpatient Questions Answer Date Recorded [...] 10:30 AM EDT Hospital Encounter Pain Management [place] [phone] Bk Contreras MD [facility] [place] [address] 05/08/2024 10:30 AM EDT - 05/08/2024 11:00 AM EDT Surgery Pain Management [place] [phone] Bk Contreras MD [facility] [place] [address] INJECTION, ANESTHETIC AGENT AND/OR STEROID, TRANSFORAMINAL EPIDURAL, LUMBAR OR SACRAL, SINGLE LEVEL (WRVU 1.9) 05/12/2024 1:00 PM EDT Office Visit Cardiology at [address]1000 Sadi Styles MD [facility] [place] [address] 05/29/2024 10:15 AM EDT TH Visit (TeleHealth) [facility] at [place] [phone] Natalee Sanchez, KURTIS [facility] [place] [address] Scheduled Procedures Name Priority Associated Diagnoses Date/Ti me INJECTION, ANESTHETIC AGENT AND/OR STEROID, TRANSFORAMINAL EPIDURAL, LUMBAR OR SACRAL, SINGLE LEVEL (WRVU 1.9) Left lumbar radiculopathy 05/08/2024 10:30 AM EDT documented as of this encounter Results * ADRY, legs, multiple levels (06/28/2023 1:37 PM EDT) Pathologist [facility] VB Text Report Department: Vascular Surgery Lab Patient: [id number] (TOYIN LION) CPT: 06875 Referring Physician: BUCK BUCHANAN ?? Phone: Indications: L>R LE pain w/ cold feet/toes, ??? perfusion Diabetes mellitus: Yes Findings: Right ?Pressure (mm Hg) ?? ADRY ??Waveform ?? TBI ?? Brachial Artery ?115 ? Dorsalis Pedis (Ankle) Artery ?106 ? 0.92 ??Biphasic ? Posterior Tibial (Ankle) Artery ??97 ?0.84 ??Biphasic ? Great Toe ?0 ? 0.00 ?? Second Toe ? 61 ?0.53 ?? Left ? Pressure (mm Hg) ?? ADRY ??Waveform ? TBI ?? Brachial Artery ?108 ? Dorsalis Pedis (Ankle) Artery ?125 ? 1.09 ??Bi-Triphasic ? Posterior Tibial (Ankle) Artery ??107 ? 0.93 ??Bi-Triphasic ? Great Toe ?0 ? 0.00 ?? Second Toe ? 31 ?0.27 ?? Interpretation: RIGHT: Mild lower extremity arterial occlusive [...] TBI when compared to the previous exam. Previous ABIs with change from previous value: Date ?RIGHT DP ?? RIGHT PT ?? RT GR TOE ??RT Sec TOE ??1.09 ? 1.06 ? 0.61 ? ---- Current ? 0.92(-.17) 0.84(-.22) 0.00(-.61) 0.53 Date ?LEFT DP ?LEFT PT ?LT GR TOE LT Sec TOE ??0.95 ? 1.03 ? 0.63 ? ---- Current ? 1.09(+.14) 0.93(-.10) 0.00(-.63) 0.27 Electronically Signed by: CALIXTO BOND on 2023-06-29 02:01:52 PM [facility] VB Text Report End of Report [facility] 06/28/2023 1:37 PM EDT Buck Buchanan APRN [facility] documented in this encounter Visit Diagnoses Diagnosis Pain in both feet Pain in limb Left lumbar radiculopathy Thoracic or lumbosacral neuritis or radiculitis, unspecified documented in this encounter Care Teams Drying Oven Attendant Relationship Specialty Start Date End Date Asia Gil DO [address] [place] [address] PCP - General Family Medicine 07/09/20 documented as of this encounter
--- OUTSIDE RECORDS SUMMARY | 2024-05-02 12:06 | XMS_ITS | Encounter Summary ---
[place] [address] Care Team Providers Care Table Tender Sludge Name Role Phone Jeffery Asiarafaela Dunn DO Primary Care Provider +1- [phone] Reason for Visit * Reason Comments Medication Refill Encounter Details Date Type Department Care Team (Late st Contact Info) Description 05/20/2022 Refill Cardiology at [address] [phone] Antonio Cruz MD [facility] [place] [address] Medication Refill Social History Tobacco Use Types Packs/Day Years [...] 10:30 AM EDT Hospital [place] [phone] Bk Contreras MD [facility] [place] [address] 05/08/2024 10:30 AM EDT - 05/08/2024 11:00 AM EDT [place] [phone] Bk Contreras MD [facility] [place] [address] INJECTION, ANESTHETIC AGENT AND/OR STEROID, TRANSFORAMINAL EPIDURAL, LUMBAR OR SACRAL, SINGLE LEVEL (WRVU 1.9) 05/12/2024 1:00 PM EDT Office Visit Cardiology at [address]1000 Sadi Styles MD [facility] [place] [address] 05/29/2024 10:15 AM EDT TH Visit (TeleHealth) [facility] Sp[facility] at [place] [phone] Natalee Sanchez APRN [facility] [place] [address] Scheduled Procedures Name Priority Associated Diagnoses Date/Ti me INJECTION, ANESTHETIC AGENT AND/OR STEROID, TRANSFORAMINAL EPIDURAL, LUMBAR OR SACRAL, SINGLE LEVEL (WRVU 1.9) Left lumbar radiculopathy 05/08/2024 10:30 AM EDT documented as of this encounter Visit Diagnoses Not on filedocumented in this encounter Care Teams Table Tender Sludge Relationship Specialty Start Date End Date Asia Gil DO [address] [place] [address] PCP - General Family Medicine 07/09/20 documented as of this encounter
--- OUTSIDE RECORDS SUMMARY | 2024-05-02 12:06 | XMS_ITS | Encounter Summary ---
Author Organization [facility] Address [facility] [place] [address] Care Team Providers Care Dip Dyer Name Role Phone Asia Gil DO Primary Care Provider +1- [phone] Reason for Referral * Consultation (Routine) - Closed Specialty Diagnoses / Procedures Referred By Leonel chin Referred To Contact Cardiology Diagnoses ASCVD (arteriosclerotic cardiovascular disease) Other specified postprocedural states Hyperlipidemia, unspecified Hyperlipidemia. Hx ASCVD, s/p cath, liver cirrhosis 2ndary to [facility]MONS. Eval of Hyperlipidemia with liver, panreatic, renal disease...high chol despite statin. (last seen 09/11/21-Cruz) Asia Gil DO [address] [place] [address] Antonio Cruz MD [facility] [place] [address] Referral ID Status Reason Start Date Expiration Date V isits Requested Visits Authorized [id number] Closed Consult, Test & Treat PCP Updated and/or Approved 03/17/2022 03/17/2023 6 6 Encounter Details Date Type Department Care Team (Latest Contact Info) Description 03/17/2022 Transcribe Orders eDH Incoming Referrals [phone] Asia Gil, DO [address] [place] [address] ASCVD (arteriosclerotic cardiovascular disease) Social History Tobacco Use Types Packs/Day Years [...] 10:30 AM EDT Hospital Encounter [place] [address] Bk Contreras MD [facility] [place] [address] 05/08/2024 10:30 AM EDT - 05/08/2024 11:00 AM EDT Surgery [place] [phone] Bk Contreras MD [facility] [address] INJECTION, ANESTHETIC AGENT AND/OR STEROID, TRANSFORAMINAL EPIDURAL, LUMBAR OR SACRAL, SINGLE LEVEL (WRVU 1.9) 05/12/2024 1:00 PM EDT Office Visit Cardiology at [address] [phone] Sadi Styles MD [facility] [place] [address] 05/29/2024 10:15 AM EDT TH Visit (TeleHealth) [place] [phone] Natalee Sanchez, ASSEMBLY LINE DRIVER [facility] [place] [address] Scheduled Procedures Name Priority Associated Diagnoses Date/Ti me INJECTION, ANESTHETIC AGENT AND/OR STEROID, TRANSFORAMINAL EPIDURAL, LUMBAR OR SACRAL, SINGLE LEVEL (WRVU 1.9) Left lumbar radiculopathy 05/08/2024 10:30 AM EDT Scheduled Referrals Name Type Priority Associated Diagnoses Orde r Schedule Referral to Cardiology Outpatient Referral Routine ASCVD (arteriosclerotic cardiovascular disease) Ordered: 03/17/2022 documented as of this encounter Visit Diagnoses Diagnosis ASCVD (arteriosclerotic cardiovascular disease) Unspecified cardiovascular disease Left lumbar radiculopathy Thoracic or lumbosacral neuritis or radiculitis, unspecified documented in this encounter Care Teams Dip Dyer Relationship Specialty Start Date End Date Asia Gil DO [address] [place] [address] PCP - General Family Medicine 07/09/20 documented as of this encounter
--- OUTSIDE RECORDS SUMMARY | 2024-05-02 12:06 | XMS_ITS | Encounter Summary ---
[place] [address] Care Team Providers Care Air Export Coordinator Name Role Phone Asia Gil DO Primary Care Provider +1- [phone] Encounter Details Date Type Department Care Team (Late st Contact Info) Description 11/10/2022 Telephone Nephrology [place] [phone] Tiffanie Cuello Social History Tobacco Use Types [...] * Telephone Encounter - Tiffanie Cuello - 11/10/2022 3:09 PM EST Called patient to schedule a follow up appointment. Offered 11/27 via telehealth. Pt was in car and she will call office back to schedule an appointment documented in this encounter Plan of Treatment Upcoming Encounters Date Type Department Care Team (Latest Contact Info) Description 05/08/2024 10:30 AM EDT Hospital [place] [address] Bk Contreras MD [facility] [place] [place] [address] 05/08/2024 10:30 AM EDT - 05/08/2024 11:00 AM EDT Surgery Pain Management [place] [phone] Bk Contreras MD [facility] [place] [address] INJECTION, ANESTHETIC AGENT AND/OR STEROID, TRANSFORAMINAL EPIDURAL, LUMBAR OR SACRAL, SINGLE LEVEL (WRVU 1.9) 05/12/2024 1:00 PM EDT [place] [address] Sadi Styles MD [facility] [place] [place] [address] 05/29/2024 10:15 AM EDT TH Visit (TeleHealth) [facility] Sp[facility] Center at [place] [phone] Natalee Sanchez APRN [facility] [place] [address] Scheduled Procedures Name Priority Associated Diagnoses Date/Ti me INJECTION, ANESTHETIC AGENT AND/OR STEROID, TRANSFORAMINAL EPIDURAL, LUMBAR OR SACRAL, SINGLE LEVEL (WRVU 1.9) Left lumbar radiculopathy 05/08/2024 10:30 AM EDT documented as of this encounter Visit Diagnoses Not on filedocumented in this encounter Care Teams Air Export Coordinator Relationship Specialty Start Date End Date Asia Gil DO [address] [place] [address] PCP - General Family Medicine 07/09/20 documented as of this encounter
--- OUTSIDE RECORDS SUMMARY | 2024-05-02 12:06 | XMS_ITS | Encounter Summary ---
Author Organization [facility] [place] [address] Care Team Providers Care Supervisor Leaf Spring Repair Name Role Phone Asia Gil DO Primary Care Provider +1- [phone] Encounter Details Date Type Department Care Team (Latest Contact Info) Description 04/10/2023 Travel Social History Tobacco Use Types Packs/Day [...] 10:30 AM EDT Hospital Encounter Pain Management [facility] [place] [address] Bk Contreras MD [facility] [place] [address] 05/08/2024 10:30 AM EDT - 05/08/2024 11:00 AM EDT [place] [address] Bk Contreras MD [facility] [place] [address] INJECTION, ANESTHETIC AGENT AND/OR STEROID, TRANSFORAMINAL EPIDURAL, LUMBAR OR SACRAL, SINGLE LEVEL (WRVU 1.9) 05/12/2024 1:00 PM EDT Office Visit Cardiology at [place] [phone] Sadi Styles MD [facility] [place] [address] 05/29/2024 10:15 AM EDT TH Visit (TeleHealth) [facility] and Sp[facility] Center at [place] [phone] Natalee Sanchez APRN [facility] [place] [address] Scheduled Procedures Name Priority Associated Diagnoses Date/Ti me INJECTION, ANESTHETIC AGENT AND/OR STEROID, TRANSFORAMINAL EPIDURAL, LUMBAR OR SACRAL, SINGLE LEVEL (WRVU 1.9) Left lumbar radiculopathy 05/08/2024 10:30 AM EDT documented as of this encounter Visit Diagnoses Not on filedocumented in this encounter Care Teams Supervisor Leaf Spring Repair Relationship Specialty Start Date End Date Asia Gil DO [address] [place] [address] PCP - General Family Medicine 07/09/20 documented as of this encounter
--- OUTSIDE RECORDS SUMMARY | 2024-05-02 12:06 | XMS_ITS | Encounter Summary ---
Author Organization [facility] [place] [address] Care Team Providers Care Cleaning Attendant Name Role Phone Jeffery Asiarafaela Dunn DO Primary Care Provider +1- [phone] Encounter Details Date Type Department Care Team (Latest Contact Info) Description 11/13/2022 Travel Social History Tobacco Use Types Packs/Day [...] 10:30 AM EDT Hospital [place] [address] Bk Contreras MD [facility] [place] [address] 05/08/2024 10:30 AM EDT - 05/08/2024 11:00 AM [place] [phone] Bk Contreras MD [facility] [place] [address] INJECTION, ANESTHETIC AGENT AND/OR STEROID, TRANSFORAMINAL EPIDURAL, LUMBAR OR SACRAL, SINGLE LEVEL (WRVU 1.9) 05/12/2024 1:00 PM EDT Office Visit Cardiology at [address] [phone] Sadi Styles MD [facility] [place] [address] 05/29/2024 10:15 AM EDT TH Visit (TeleHealth) [place] [phone] Natalee Sanchez APRN [facility] [place] [address] Scheduled Procedures Name Priority Associated Diagnoses Date/Ti me INJECTION, ANESTHETIC AGENT AND/OR STEROID, TRANSFORAMINAL EPIDURAL, LUMBAR OR SACRAL, SINGLE LEVEL (WRVU 1.9) Left lumbar radiculopathy 05/08/2024 10:30 AM EDT documented as of this encounter Visit Diagnoses Not on filedocumented in this encounter Care Teams Cleaning Attendant Relationship Specialty Start Date End Date Asia Gil DO [address] [place] [address] PCP - General Family Medicine 07/09/20 documented as of this encounter
--- OUTSIDE RECORDS SUMMARY | 2024-05-02 12:06 | XMS_ITS | Encounter Summary ---
Author Organization [facility] [place] [address] Care Team Providers Care Communication Coordinator Name Role Phone Asia Gil DO Primary Care Provider +1- [phone] Encounter Details Date Type Department Care Team (Latest Contact Info) Description 04/04/2023 Travel Social History Tobacco Use Types Packs/Day [...] AM EDT Hospital Encounter Pain Management [facility] [place] [address] Bk Contreras MD [facility] [place] [place] [address] 05/08/2024 10:30 AM EDT - 05/08/2024 11:00 AM [place] [address] Bk Contreras MD [facility] [place] [address] INJECTION, ANESTHETIC AGENT AND/OR STEROID, TRANSFORAMINAL EPIDURAL, LUMBAR OR SACRAL, SINGLE LEVEL (WRVU 1.9) 05/12/2024 1:00 PM EDT Office Visit Cardiology at [place] [phone] Sadi Styles MD [facility] [place] [address] 05/29/2024 10:15 AM EDT TH Visit (TeleHealth) [facility] Spine Center at [place] [phone] Natalee Sanchez APRN [facility] [place] [address] Scheduled Procedures Name Priority Associated Diagnoses Date/Ti me INJECTION, ANESTHETIC AGENT AND/OR STEROID, TRANSFORAMINAL EPIDURAL, LUMBAR OR SACRAL, SINGLE LEVEL (WRVU 1.9) Left lumbar radiculopathy 05/08/2024 10:30 AM EDT documented as of this encounter Visit Diagnoses Not on filedocumented in this encounter Care Teams Communication Coordinator Relationship Specialty Start Date End Date Asia Gil DO [address] [place] [address] PCP - General Family Medicine 07/09/20 documented as of this encounter
--- OUTSIDE RECORDS SUMMARY | 2024-05-02 12:06 | XMS_ITS | Encounter Summary ---
Author Organization [facility] Address [facility] [place] [address] Care Team Providers Care Manager Account Management Name Role Phone Asia Gil DO Primary Care Provider +1- [phone] Encounter Details Date Type Department Care Team (Late st Contact Info) Description 04/28/2023 Telephone Nephrology [place] [address] Magdaleno Dia MD [facility] [place] [address] Social History Tobacco Use Types Packs/Day Years Used Date Smoking Tobacco: Never Smokeless Tobacco: Never Comments:uses medical yumiko nader Alcohol Use Standard Drinks/Week Comments Not Asked 0 (1 standard drink = 0.6 oz pur e alcohol) 12 years ago [facility] In[facility] Questions Answer Date Recorded Prevent [...] encounter Miscellaneous Notes * Telephone Encounter - Magdaleno Dia MD - 04/28/2023 9:53 AM EDT Called patient to follow-up results on abdominal MRI done to better characterize bilateral cystic disease. No solid mass vascularity or calcification described. It may be some hemorrhagic characteristics as some of the cysts. Clinical significance of this to me unknown we will continue to monitor and consider repeat imaging in 12 months with ultrasound. documented in this encounter Plan of Treatment Upcoming Encounters Date Type Department Care Team (Latest Contact Info) Description 05/08/2024 10:30 AM EDT Hospital Encounter Pain Management [place] [phone] Bk Contreras MD [facility] [place] [address] 05/08/2024 10:30 AM EDT - 05/08/2024 11:00 AM EDT Surgery Pain Management [place] [phone] Bk Contreras MD [facility] [place] [address] INJECTION, ANESTHETIC AGENT AND/OR STEROID, TRANSFORAMINAL EPIDURAL, LUMBAR OR SACRAL, SINGLE LEVEL (WRVU 1.9) 05/12/2024 1:00 PM EDT Office Visit Cardiology at [place] [phone] Sadi Styles MD [facility] [place] [place] [address] 05/29/2024 10:15 AM EDT TH Visit (TeleHealth) [facility] Sp[facility] Center at [place] [phone] Natalee Sanchez, [facility] [place] [address] Scheduled Procedures Name Priority Associated Diagnoses Date/Ti me INJECTION, ANESTHETIC AGENT AND/OR STEROID, TRANSFORAMINAL EPIDURAL, LUMBAR OR SACRAL, SINGLE LEVEL (WRVU 1.9) Left lumbar radiculopathy 05/08/2024 10:30 AM EDT documented as of this encounter Visit Diagnoses Not on filedocumented in this encounter Care Teams Manager Account Management Relationship Specialty Start Date End Date Asia Gil DO [address] [facility] [address] [address] PCP - General Family Medicine 07/09/20 documented as of this encounter
--- OUTSIDE RECORDS SUMMARY | 2024-05-02 12:06 | XMS_ITS | Encounter Summary ---
[place] [address] Care Team Providers Care Inspector Aide Name Role Phone Asia Gil DO Primary Care Provider +1- [phone] Reason for Referral * Diagnostic Test (Routine) - Closed Specialty Diagnoses / Procedures Referred By Contjaymie t Referred To Contact Radiology Diagnoses Renal mass Procedures MRI Abdomen wwo Contrast (Generic) Magdaleno Dia MD [facility] [place] [address] [place] [address] Referral ID Status Reason Start Date Expiration Date V isits Requested Visits Authorized [id number] Closed Specialty Service Requested 01/01/2023 07/04/2024 1 1 Reason for Visit * Diagnostic Test (Routine) - Closed Specialty Diagnoses / Procedures Referred By Leonel chin Referred To Contact Radiology Diagnoses Renal mass Procedures MRI Abdomen wwo Contrast (Generic) Magdaleno Dia MD [facility] [place] [address] [place] [address] Referral ID Status Reason Start Date Expiration Date V isits Requested Visits Authorized [id number] Closed Specialty Service Requested 01/01/2023 07/04/2024 1 1 Encounter Details Date Type Department Care Team (Latest Contact Info) Description 04/10/2023 12:32 PM EDT - 04/10/2023 11:59 PM EDT Hospital Encounter MRI [place] [place] [address] Magdaleno Dia MD [facility] [place] [address] Renal mass Discharge Disposition: Home Social History Tobacco Use Types Packs/Day Years Used Date Smoking Tobacco: Never Smokeless Tobacco: Never Comments:uses medical yumiko nader Alcohol Use Standard Drinks/Week Comments Not Asked 0 (1 standard drink = 0.6 oz pur e alcohol) 12 years ago [facility] Inpatient Questions Answer Date Recorded [...] Sig Dispensed Refills Start Date End Date lisinopriL (Zestril) 2.5 mg tablet Take 2.5 mg by mouth 2 times daily. 12/19/2022 OneTouch Ultra Test Strip CHECK BLOOD SUGAR [...] EDT Hospital [place] [phone] Bk Contreras MD [facility] [place] [address] 05/08/2024 10:30 AM EDT - 05/08/2024 11:00 AM ED[place] [phone] Bk Contreras MD [facility] [place] [address] INJECTION, ANESTHETIC AGENT AND/OR STEROID, TRANSFORAMINAL EPIDURAL, LUMBAR OR SACRAL, SINGLE LEVEL (WRVU 1.9) 05/12/2024 1:00 PM EDT Office Visit Cardiology at [address] [phone] Sadi Styles MD [facility] [place] [address] 05/29/2024 10:15 AM EDT TH Visit (TeleHealth) [facility] [place] [phone] Natalee Sanchez, KURTIS [facility] [place] [address] Scheduled Procedures Name Priority Associated Diagnoses Date/Ti me INJECTION, ANESTHETIC AGENT AND/OR STEROID, TRANSFORAMINAL EPIDURAL, LUMBAR OR SACRAL, SINGLE LEVEL (WRVU 1.9) Left lumbar radiculopathy 05/08/2024 10:30 AM EDT documented as of this encounter Procedures Procedure Name Priority Date/Time Associated Diagnosis Comments MRI ABDOMEN WWO CONTRAST Routine 04/10/2023 1:43 PM EDT Renal mass documented in this encounter Results * MRI [...] who have questions please contact the health critical care nurse practitioner that requested your imaging first. ? Electronically signed by: Mauro Thomas DO, [facility] ([phone]), at 04/11/2023 10:08 AM Narrative 04/11/2023 10:08 [...] performed is not provided for comparison. FINDINGS: Group Controller Images: Noncontributory. Lower chest: Visualized structures within [...] was performed isnot provided for comparison. FINDINGS: Group Controller Images: Noncontributory. Lower chest: Visualized structures within [...] patients who have questions please contactthe health critical care nurse practitioner that requested your imaging first. Electronically signed by: Mauro Thomas DO, [facility]([phone]), at 04/11/2023 10:08 AM Magdaleno Dia MD IMG MRI ORDERABLES documented in this encounter Visit Diagnoses Diagnosis Renal mass Unspecified disorder of kidney and ureter Left lumbar radiculopathy Thoracic or lumbosacral neuritis or radiculitis, unspecified documented in this encounter Administered Medications Inactive Administered Medications - up to 3 most recent administrations Medication Order MAR Action Action Date Dose Rate Site gadoterate meglumine (Dotarem) (0.5 mMol/mL) injection solution 0-100 mL 0-100 mL, Intravenous, ONCE PRN, 1 dose, Starting on 04/10/23 at 1327, Until 04/10/23 at 1328, Per Protocol, Radiology Contrast, Routine Given 04/10/2023 1:28 PM EDT 16 mLs documented in this encounter Care Teams Inspector Aide Relationship Specialty Start Date End Date Asia Gil DO [address] [place] [address] PCP - General Family Medicine 07/09/20 documented as of this encounter
--- OUTSIDE RECORDS SUMMARY | 2024-05-02 12:06 | XMS_ITS | Encounter Summary ---
Author Organization [facility] [place] [address] Care Team Providers Care Switch Foreman Name Role Phone Jeffery Asiarafaela Dunn DO Primary Care Provider +1- [phone] Encounter Details Date Type Department Care Team (Latest Contact Info) Description 11/11/2022 Travel Social History Tobacco Use Types Packs/Day [...] 10:30 AM EDT Hospital En[place] [address] Bk Contreras MD [facility] [place] [address] 05/08/2024 10:30 AM EDT - 05/08/2024 11:00 AM EDT [place] [phone] Bk Contreras MD [facility] [place] [address] INJECTION, ANESTHETIC AGENT AND/OR STEROID, TRANSFORAMINAL EPIDURAL, LUMBAR OR SACRAL, SINGLE LEVEL (WRVU 1.9) 05/12/2024 1:00 PM EDT Office Visit Cardiology at [address] [phone] Sadi Styles MD [facility] [place] [address] 05/29/2024 10:15 AM EDT TH Visit (TeleHealth) [place] [phone] Natalee Sanchez APRN [facility] [place] [address] Scheduled Procedures Name Priority Associated Diagnoses Date/Ti me INJECTION, ANESTHETIC AGENT AND/OR STEROID, TRANSFORAMINAL EPIDURAL, LUMBAR OR SACRAL, SINGLE LEVEL (WRVU 1.9) Left lumbar radiculopathy 05/08/2024 10:30 AM EDT documented as of this encounter Visit Diagnoses Not on filedocumented in this encounter Care Teams Switch Foreman Relationship Specialty Start Date End Date Asia Gil DO [address] [place] [address] PCP - General Family Medicine 07/09/20 documented as of this encounter
--- OUTSIDE RECORDS SUMMARY | 2024-05-02 12:06 | XMS_ITS | Encounter Summary ---
Author Organization [facility] Address [facility] [place] [address] Care Team Providers Care Product Mgmt Dev Manager Name Role Phone Jeffery Asiarafaela Dunn DO Primary Care Provider +1- [phone] Encounter Details Date Type Department Care Team (Latest Contact Info) Description 01/01/2023 Travel Social History Tobacco Use Types Packs/Day [...] 10:30 AM EDT Hospital Encounter [place] [address] Bk Contreras MD [facility] [place] [address] 05/08/2024 10:30 AM EDT - 05/08/2024 11:00 AM EDT Surgery [place] [phone] Bk Contreras MD [facility] [place] [address] INJECTION, ANESTHETIC AGENT AND/OR STEROID, TRANSFORAMINAL EPIDURAL, LUMBAR OR SACRAL, SINGLE LEVEL (WRVU 1.9) 05/12/2024 1:00 PM EDT Office Visit Cardiology at [address] [phone] Sadi Styles MD [facility] [place] [address] 05/29/2024 10:15 AM EDT TH Visit (TeleHealth) [place] [phone] Natalee Sanchez APRN [facility] [place] [address] Scheduled Procedures Name Priority Associated Diagnoses Date/Ti me INJECTION, ANESTHETIC AGENT AND/OR STEROID, TRANSFORAMINAL EPIDURAL, LUMBAR OR SACRAL, SINGLE LEVEL (WRVU 1.9) Left lumbar radiculopathy 05/08/2024 10:30 AM EDT documented as of this encounter Visit Diagnoses Not on filedocumented in this encounter Care Teams Product Mgmt Dev Manager Relationship Specialty Start Date End Date Asia Gil DO [address] [place] [address] PCP - General Family Medicine 07/09/20 documented as of this encounter
--- OUTSIDE RECORDS SUMMARY | 2024-05-02 12:06 | XMS_ITS | Encounter Summary ---
Author Organization [facility] Address [facility] [place] [address] Care Team Providers Care Print Binding And Finishing Worker Name Role Phone Asia Gil DO Primary Care Provider +1- [phone] Reason for Referral * Consultation (Urgent) - Closed Specialty Diagnoses / Procedures Referred By Leonel chin Referred To Contact Cardiology Diagnoses Heart failure, unspecified HF chronicity, unspecified heart failure type Atherosclerosis of campo coronary artery of campo heart without angina pectoris Nonrheumatic aortic valve stenosis Chronic kidney disease, stage IV (severe) Anemia, unspecified type ECHO & CONSULT post-stent, pt not feeling well. ?echo or vasc eval warranted? (last seen 04/23/22-Cruz) Asia Gil DO [address] [place] [address] Antonio Cruz MD [facility] [place] [address] Referral ID Status Reason Start Date Expiration Date V isits Requested Visits Authorized [id number] Closed Consult, Test & Treat 11/10/2022 11/10/2023 6 6 Encounter Details Date Type Department Care Team (Latest Contact Info) Description 11/10/2022 Transcribe Orders eDH Incoming Referrals [phone] Asia Gil, DO [address] [place] [address] Heart failure, unspecified HF chronicity, unspecified heart failure type; Atherosclerosis of campo coronary artery of campo heart without angina pectoris; Nonrheumatic aortic valve stenosis; Chronic kidney disease, stage IV (severe); Anemia, unspecified type Social History Tobacco Use Types Packs/Day Years [...] 10:30 AM EDT Hospital En[place] [phone] Bk Contreras MD [facility] [place] [address] 05/08/2024 10:30 AM EDT - 05/08/2024 11:00 AM EDT [place] [phone] Bk Contreras MD [facility] [place] [address] INJECTION, ANESTHETIC AGENT AND/OR STEROID, TRANSFORAMINAL EPIDURAL, LUMBAR OR SACRAL, SINGLE LEVEL (WRVU 1.9) 05/12/2024 1:00 PM EDT Office Visit Cardiology at [address] [phone] Sadi Styles MD [facility] [place] [address] 05/29/2024 10:15 AM EDT TH Visit (TeleHealth) [place] [address] Natalee Sanchez APRN [facility] [place] [address] Scheduled Procedures Name Priority Associated Diagnoses Date/Ti me INJECTION, ANESTHETIC AGENT AND/OR STEROID, TRANSFORAMINAL EPIDURAL, LUMBAR OR SACRAL, SINGLE LEVEL (WRVU 1.9) Left lumbar radiculopathy 05/08/2024 10:30 AM EDT Scheduled Referrals Name Type Priority Associated Diagnoses Orde r Schedule Referral to Cardiology Outpatient Referral Urgent Heart failure, unspecified HF chronicity, unspecified heart failure type Atherosclerosis of campo coronary artery of campo heart without angina pectoris Nonrheumatic aortic valve stenosis Chronic kidney disease, stage IV (severe) Anemia, unspecified type Ordered: 11/10/2022 documented as of this encounter Visit Diagnoses Diagnosis Heart failure, unspecified HF chronicity, unspecified heart failure type Atherosclerosis of campo coronary artery of campo heart without angina pectoris Nonrheumatic aortic valve stenosis Aortic valve disorders Chronic kidney disease, stage IV (severe) Chronic kidney disease, Stage IV (severe) Anemia, unspecified type Left lumbar radiculopathy Thoracic or lumbosacral neuritis or radiculitis, unspecified documented in this encounter Care Teams Print Binding And Finishing Worker Relationship Specialty Start Date End Date Asia Gil DO [address] [place] [address] PCP - General Family Medicine 07/09/20 documented as of this encounter
--- OUTSIDE RECORDS SUMMARY | 2024-05-02 12:06 | XMS_ITS | Encounter Summary ---
Author Organization [facility] [place] [address] Care Team Providers Care Hog Counter Name Role Phone Asia Gil DO Primary Care Provider +1- [phone] Reason for Visit * Diagnostic Test (Routine) - Closed Specialty Diagnoses / Procedures Referred By Leonel chin Referred To Contact Gastroenterology Diagnoses RUQ pain Dysphagia, unspecified type Regurgitation of food Constipation, unspecified constipation type BUMP 07/20 ARM for constipation Procedures High Definition Anal Manometry ARM for constipation Ozzy Saunders, HAND II THERMAL CUTTER [place] [address] [facility] [address] [place] [address] Referral ID Status Reason Start Date Expiration Date V isits Requested Visits Authorized [id number] Closed Consult, Test & Treat PCP Updated and/or Approved 02/24/2022 02/24/2023 1 1 Encounter Details Date Type Department Care Team (Latest Contact Info) Description 02/02/2023 1:00 PM EDT Procedure [place] [address] RUQ pain; Dysphagia, unspecified type; Regurgitation of food; Constipation, unspecified constipation type Social History Tobacco Use Types Packs/Day [...] as of this encounter Progress Notes * Sierra Camilo RN - 02/02/2023 1:00 PM EDT A description of the anal manometry procedure was provided to the patient. All questions were answered and the patient verbalized understanding. After performing a digital rectal exam, the HRAM probe was placed in the rectum without difficulty and the procedure was performed. After removal of the probe, an anorectal balloon expulsion catheterwas placed in the rectum for continuation of the study and then removed. The patient tolerated the procedure well. * Beau Gunderson MD - 02/02/2023 1:00 PM EDT Re: Toyin Coley Reg No:[id number] : 1955 Date of Service: 02/02/2023 ANORECTAL MANOMETRY w/BALLOON EXPULSION Referring provider:Ozzy Saunders Dear: Dr. Saunders We had the pleasure of performing a high resolution anorectal manometry on your patient in the GI Motility Laboratory at [facility]. CLINICAL HISTORY AND INDICATION As you know, she is a 67 y.o. female with complaints of constipation RESULTS Resting sphincter pressure (NL Value: Males 70-100, Females 70-90) : 36 mmHg Max squeeze pressure (NL Value: Males 240-300, Females 160-200) : 178 mmHg Squeeze duration: excellent (sustaining at least 50% of the difference between maximum squeeze and resting pressures for at least 20 seconds). Rectoanal inhibitory reflex: present at 60 ccs balloon distention Response to coughing: normal (cough elicits a pressure greater than or equal to double the resting pressure). Dyssynergia evident on push maneuvers. Rectal Sensation: Threshold (NL Value: 30-70): 60mL Urgency (NL Value: 80-130): 100mL Maximum tolerated (NL Value: 130-200): 180mL Balloon expulsion test: 25 seconds in seated position IMPRESSION Findings are inconclusive for dyssynergic defecation. Consider an MRI defecography as a third test to evaluate whether dyssynergia is present. Resting anal sphincter pressure reflecting internal sphincter function was weak. Maximum squeeze pressures reflecting external sphincter function were normal. Rectal sensation was normal. Beau Gunderson MD, [facility] Section of Gastroenterology and Hepatology [facility] [place] [address] V: [phone] F: [phone] CC/EC: Asia Gil, [address] [place] [address] documented in this encounter Plan of Treatment Upcoming Encounters Date Type Department Care Team (Latest Contact Info) Description 05/08/2024 10:30 AM EDT Hospital [place] [address] Bk Contreras MD [facility] [place] [address] 05/08/2024 10:30 AM EDT - 05/08/2024 11:00 AM [place] [address] Bk Contreras MD [facility] [place] [place] [address] INJECTION, ANESTHETIC AGENT AND/OR STEROID, TRANSFORAMINAL EPIDURAL, LUMBAR OR SACRAL, SINGLE LEVEL (WRVU 1.9) 05/12/2024 1:00 PM EDT Office Visit Cardiology at [address] [address] Sadi Styles MD [facility] [place] [address] 05/29/2024 10:15 AM EDT TH Visit (TeleHealth) [facility] [place] [phone] Natalee Sanchez APRN [facility] [place] [address] Scheduled Procedures Name Priority Associated Diagnoses Date/Ti me INJECTION, ANESTHETIC AGENT AND/OR STEROID, TRANSFORAMINAL EPIDURAL, LUMBAR OR SACRAL, SINGLE LEVEL (WRVU 1.9) Left lumbar radiculopathy 05/08/2024 10:30 AM EDT documented as of this encounter Visit Diagnoses Diagnosis RUQ pain Abdominal pain, right upper quadrant Dysphagia, unspecified type Regurgitation of food Constipation, unspecified constipation type Left lumbar radiculopathy Thoracic or lumbosacral neuritis or radiculitis, unspecified documented in this encounter Care Teams Hog Counter Relationship Specialty Start Date End Date Asia Gil DO [address] [place] [address] PCP - General Family Medicine 07/09/20 documented as of this encounter
--- OUTSIDE RECORDS SUMMARY | 2024-05-02 12:06 | XMS_ITS | Encounter Summary ---
Author Organization [facility] [place] [address] Care Team Providers Care Stallion Manager Name Role Phone Asia Gil DO Primary Care Provider [phone] Reason for Referral * Diagnostic Test (Routine) - Closed Specialty Diagnoses / Procedures Referred By Contac t Referred To Contact Cardiology Diagnoses Hyperlipidemia, unspecified hyperlipidemia type Hypertension, unspecified type HFrEF (heart failure with reduced ejection fraction) ASCVD (arteriosclerotic cardiovascular disease) Coronary artery disease, unspecified vessel or lesion type, unspecified whether angina present, unspecified whether [place] or transplanted heart PVD (peripheral vascular disease) with claudication Procedures Echocardiogram Transthoracic Antonio Aiken MD [facility] [place] [address] [facility] [place] [address] Referral ID Status Reason Start Date Expiration Date V isits Requested Visits Authorized [id number] Closed Specialty Service Requested 04/23/2022 04/23/2023 1 1 Reason for Visit * Diagnostic Test (Routine) - Closed Specialty Diagnoses / Procedures Referred By Contac t Referred To Contact Cardiology Diagnoses Hyperlipidemia, unspecified hyperlipidemia type Hypertension, unspecified type HFrEF (heart failure with reduced ejection fraction) ASCVD (arteriosclerotic cardiovascular disease) Coronary artery disease, unspecified vessel or lesion type, unspecified whether angina present, unspecified whether [place] or transplanted heart PVD (peripheral vascular disease) with claudication Procedures Echocardiogram Transthoracic Antonio Aiken MD [facility] [place] [address] [facility] [place] [address] Referral ID Status Reason Start Date Expiration Date V isits Requested Visits Authorized [id number] Closed Specialty Service Requested 04/23/2022 04/23/2023 1 1 Encounter Details Date Type Department Care Team (Latest Contact Info) Description 11/13/2022 9:56 AM EST - 11/13/2022 11:59 PM EST Hospital Encounter [place] [address] Antonio Aiken MD [facility] [address] Hyperlipidemia, unspecified hyperlipidemia type; Hypertension, unspecified type; HFrEF (heart failure with reduced ejection fraction); ASCVD (arteriosclerotic cardiovascular disease); Coronary artery disease, unspecified vessel or lesion type, unspecified whether angina present, unspecified whether [place] or transplanted heart; PVD (peripheral vascular disease) with claudication Discharge Disposition: Home Social History Tobacco Use [...] Sig Dispensed Refills Start Date End Date torsemide (Demadex) 10 mg Tablet Take 10 [...] daily. 90 tablet 3 01/27/2021 amitriptyline (Elavil) 10 mg Tablet TAKE 1 TABLET BY MOUTH AT BEDTIME. WITH PLAN TO INCREASE EVERY 2 WEEKS IF TOLDERATED UP TO 150MG. NOT WITH TRAMADOL 09/01/2022 11/25/2022 amitriptyline (Elavil) 25 mg Tablet Take 75 mg by mouth nightly. 11/10/2022 12/22/2023 diclofenac (Voltaren) 1 % Gel APPLY 4 GRAMS TOPICALLY TO THE AFFECTED AREA FOUR TIMES DAILY. CONTINUE TOPICAL NSAID FOR FOOT PAIN 10/13/2022 12/22/2023 Jardiance 10 mg Tablet Take 10 mg by mouth daily. 10/25/2022 12/22/2023 traMADoL (Ultram) 50 mg Tablet Take 50 mg by mouth daily. 07/31/2022 11/25/2022 ezetimibe (Zetia) 10 mg Tablet Take 1 tablet by mouth daily. 30 tablet 12 04/23/2022 11/25/2022 lisinopriL (Zestril) 5 mg Tablet Take 1 tablet by mouth daily. 90 tablet 3 11/07/2021 11/25/2022 isosorbide mononitrate CR (Imdur) 30 mg Tablet Sustained Release 24 hr Take 1 tablet by mouth every morning. 30 tablet 12 05/16/2021 12/22/2023 BD Dionna 2nd Gen Pen Needle 32 gauge x 5/32 Needle USE WITH DAILY INSULIN 04/23/2021 01/18/2023 melatonin 3 mg Tablet Take 2 tablets [...] every evening. 90 tablet 3 01/27/2021 12/22/[address] (Cymbalta) 30 mg Capsule, Delayed Release(E.C.) Take 1 capsule by mouth daily. 30 tablet 11 01/27/2021 01/18/2023 documented as of this encounter Plan of Treatment Upcoming Encounters Date Type Department Care Team (Latest Contact Info) Description 05/08/2024 10:30 AM EDT Hospital [place] [address] Bk Contreras MD [facility] [address] 05/08/2024 10:30 AM EDT - 05/08/2024 11:00 [place] [address] Bk Contreras MD [facility] [place] [address] INJECTION, ANESTHETIC AGENT AND/OR STEROID, TRANSFORAMINAL EPIDURAL, LUMBAR OR SACRAL, SINGLE LEVEL (WRVU 1.9) 05/12/2024 1:00 PM EDT Office Visit Cardiology at [address] [address] Sadi Styles MD [facility] CARDIOLOGY [place], [place] [id number] 05/29/2024 10:15 AM EDT TH Visit (TeleHealth) [facility] [place] [address] Natalee Sanchez APRN [facility] [place] [address] Scheduled Procedures Name Priority Associated Diagnoses Date/Ti me INJECTION, ANESTHETIC AGENT AND/OR STEROID, TRANSFORAMINAL EPIDURAL, LUMBAR OR SACRAL, SINGLE LEVEL (WRVU 1.9) Left lumbar radiculopathy 05/08/2024 10:30 AM EDT documented as of this encounter Procedures Procedure Name Priority Date/Time Associated Diagnosis Comments ECHO COMPLETE W CONTRAST Routine 11/13/2022 1:37 PM EST Hyperlipidemia, unspecified hyperlipidemia type Hypertension, unspecified type HFrEF (heart failure with reduced ejection fraction) ASCVD (arteriosclerotic cardiovascular disease) Coronary artery disease, unspecified vessel or lesion type, unspecified whether angina present, unspecified whether [place] or transplanted heart PVD (peripheral vascular disease) with claudication documented in this encounter Results * ECHO COMPLETE W CONTRAST (11/13/2022 1:37 PM EST) Anatomical Region Laterality Modality Cardiac Other 11/13/2022 11:1 6 AM EST Narrative 11/13/2022 1:54 PM EST ? Echocardiogram Report Name: LIONTOYIN Pablo I ?Study Date: 11/13/2022 11:16 AMBP: 154/70 mmHg ? Patient Location: [address] [place] [address] : 1955 ? Height: 160 cm ? Account: [id number] Age: 67 yrs ? Weight: 78 kg Gender: Female ?BSA: 1.8 m2 Ordering Physician: ANTONIO AIKEN Referring Physician: ANTONIO AIKEN Performed By: Cassie Washington Reason For Study: Hyperlipidemia, Hypertension, HFrEF, ASCVD, Coronary artery disease, PVD Exam Location: [facility]. Interpretation Summary Left ventricle is of normal [...] across the mitral valve is 7 mmHg. Procedure Complete-[id number]. Image enhancement Optison was used for left ventricular opacification. Suboptimal quality. There is normal sinus rhythm. Left Ventricle Left ventricle is of normal size. Wall thickness is normal. There is no ventricular septal defect. Left ventricular systolic function is normal. The left ventricular ejection fraction is 61% by Alejandro's biplane. There are no segmental wall motion abnormalities. Right Ventricle Right ventricle is mildly dilated. Right ventricular systolic function is normal. Left Atrium The left atrium is severely dilated. There is no evidence for a patent foramen ovale. Right Atrium The right atrium is normal. Aortic Valve There is calcification of the aortic annulus. The aortic valve is mildly thickened. There is mild aortic stenosis. The peak instantaneous gradient across the aortic valve is 13 mmHg. The mean gradient across the aortic valve is 6 mmHg. The aortic valve area calculated using the continuity equation is 1.9 cm2. The dimensionless index is 0.62. There is no aortic regurgitation. Mitral Valve The mitral valve is structurally normal. There is moderate mitral stenosis. The estimated mean gradient across the mitral valve is 7 mmHg. Heart rate: 67-75 beats per minute. There is trace mitral regurgitation. Tricuspid Valve The tricuspid valve is structurally normal. There is no tricuspid stenosis. There is trace tricuspid regurgitation. Pulmonic Valve The pulmonic valve appears to be structurally normal. There is no valvular pulmonic stenosis. There is trace pulmonic valve regurgitation. Great Arteries The aortic root is of normal size. No abnormalities are identified. Ascending aorta is normal in size. Venous Inferior vena cava is normal in size. Inferior vena cava collapse less than 50% with respiration. Pericardium/Pleural A pericardial fat pad is present. Epicardial fat is present. There is no pericardial effusion. Hemodynamics The estimated right atrial pressure is 8mmHg. The peak right ventricular systolic pressure is 15 mmHg. Unable to assess diastolic function. Ejection Fraction ?2D Measurements ? Volumes EF(MOD-bp): 60.9 % ?IVSd: 0.76 cm ?LAV(MOD- bp) Indexed: ?LVIDd: 5.0 cm ?LVIDs: 2.9 cm ?48.5 ml/m2 ?LVPWd: 0.68 cm ? RA A4Cs_phl: 15.7 cm2 ? EDV (MOD-bp) Index: 24.3 ?LV mass(C)d: 120.0 grams ? ESV (MOD-bp) Index: 9.5 ?LV mass(C)dI: 66.2 grams/m2 ?SV(LVOT): 72.2 ml ?Ao root diam: 2.9 cm ?Ao root diam index: 1.6 ?SI(LVOT): 39.8 ml/m2 ?asc Aorta Diam: 2.9 cm ?LVOT diam: 2.0 cm ?TAPSE_phl: 1.7 cm Doppler TR max jordan: 131.6 cm/sec RVSP(TR): 14.9 mmHg LV V1 VTI: 22.9 cm Ao V2 VTI: 37.2 cm Ao Max: 181.5 cm/sec Ao valve max: 13.2 mmHg Ao valve mean: 6.4 mmHg BRIAN(I,D): 1.9 cm2 Dimensionless index Aov: 0.62 MV mean P.1 mmHg I ?WMSI = 1.00 ? % Normal = 100 ?Segments ??Size X - Cannot ?? 1 - Normal ?? 2 - ? 3 - Akinetic 4 - ?1-2 ? small Interpret ? Hypokinetic ?Dyskinetic ?? 3-5 ? moderate 5 - ? 6-14 ?large Aneurysmal ?15-16 ?? diffuse Procedure Note Brian De Souza MD - 11/13/2022 Echocardiogram Report Name: TOYIN LION I Study Date: 1:16 AMBP: 154/70 mmHg Patient Location: [id number] : 1955 Height: 160 cm Account: [id number] Age: 67 yrs Weight: 78 kg Gender: Female BSA: 1.8 m2 Ordering Physician: ANTONIO AIKEN Referring Physician: ANTONIO AIKEN Performed By: Cassie Washington Reason For Study: Hyperlipidemia, Hypertension, HFrEF, ASCVD, Coronaryartery disease, PVD Exam Location: [facility]. Interpretation Summary Left ventricle is of normal size. Wall thickness is normal. Leftventricular systolic function is normal. The left ventricular ejection fraction is 61%by Alejandro's biplane. There are no segmental wall motion abnormalities. Right ventricle is mildly dilated. Right ventricular systolic function isnormal. The left atrium is severely dilated. There is mild aortic stenosis. The mean gradient across the aortic valveis 6 mmHg. The aortic valve area calculated using the continuity equation is1.9 cm2. There is moderate mitral stenosis. The estimated mean gradient across themitral valve is 7 mmHg. Procedure Complete-[id number]. Image enhancement Optison was used for left ventricular opacification. Suboptimal quality. There is normal sinus rhythm. Left Ventricle Left ventricle is of normal size. Wall thickness is normal. There is no ventricular septal defect. Left ventricular systolic function is normal.The left ventricular ejection fraction is 61% by Alejandro's biplane. There are nosegmental wall motion abnormalities. Right Ventricle Right ventricle is mildly dilated. Right ventricular systolic function isnormal. Left Atrium The left atrium is severely dilated. There is no evidence for a patentforamen ovale. Right Atrium The right atrium is normal. Aortic Valve There is calcification of the aortic annulus. The aortic valve is mildly thickened. There is mild aortic stenosis. The peak instantaneous gradientacross the aortic valve is 13 mmHg. The mean gradient across the aortic valve is6 mmHg. The aortic valve area calculated using the continuity equation is 1.9 cm2.The dimensionless index is 0.62. There is no aortic regurgitation. Mitral Valve The mitral valve is structurally normal. There is moderate mitralstenosis. The estimated mean gradient across the mitral valve is 7 mmHg. Heart rate:67-75 beats per minute. There is trace mitral regurgitation. Tricuspid Valve The tricuspid valve is structurally normal. There is no tricuspidstenosis. There is trace tricuspid regurgitation. Pulmonic Valve The pulmonic valve appears to be structurally normal. There is novalvular pulmonic stenosis. There is trace pulmonic valve regurgitation. Great Arteries The aortic root is of normal size. No abnormalities are identified.Ascending aorta is normal in size. Venous Inferior vena cava is normal in size. Inferior vena cava collapse lessthan 50% with respiration. Pericardium/Pleural A pericardial fat pad is present. Epicardial fat is present. There is no pericardial effusion. Hemodynamics The estimated right atrial pressure is 8mmHg. The peak right ventricularsystolic pressure is 15 mmHg. Unable to assess diastolic function. Ejection Fraction 2D Measurements Volumes EF(MOD-bp): 60.9 % IVSd: 0.76 cm LAV(MOD-bp)Indexed: LVIDd: 5.0 cm LVIDs: 2.9 cm 48.5 ml/m2 LVPWd: 0.68 cm RA A4Cs_phl: 15.7cm2 EDV (MOD-bp)Index: 24.3 LV mass(C)d: 120.0 grams ESV (MOD-bp)Index: 9.5 LV mass(C)dI: 66.2 grams/m2 SV(LVOT): 72.2ml Ao root diam: 2.9 cm Ao root diam index: 1.6 SI(LVOT): 39.8ml/m2 asc Aorta Diam: 2.9 cm LVOT diam: 2.0 cm TAPSE_phl: 1.7 cm Doppler TR max jordan: 131.6 cm/sec RVSP(TR): 14.9 mmHg LV V1 VTI: 22.9 cm Ao V2 VTI: 37.2 cm Ao Max: 181.5 cm/sec Ao valve max: 13.2 mmHg Ao valve mean: 6.4 mmHg BRIAN(I,D): 1.9 cm2 Dimensionless index Aov: 0.62 MV mean P.1 mmHg I WMSI = 1.00 % Normal = 100 SegmentsSize X - Cannot 1 - Normal 2 - 3 - Akinetic 4 - 1-2small Interpret Hypokinetic Dyskinetic 3-5moderate 5 - 6-14large Aneurysmal 15-16diffuse Antonio P Aiken MD ECHO ORDERABLES documented in this encounter Visit Diagnoses Diagnosis Hyperlipidemia, unspecified hyperlipidemia type Hypertension, unspecified type HFrEF (heart failure with reduced ejection fraction) ASCVD (arteriosclerotic cardiovascular disease) Unspecified cardiovascular disease Coronary artery disease, unspecified vessel or lesion type, unspecified whether angina present, unspecified whether [place] or transplanted heart PVD (peripheral vascular disease) with claudication Peripheral vascular disease, unspecified Left lumbar radiculopathy Thoracic or lumbosacral neuritis or radiculitis, unspecified documented in this encounter Administered Medications Inactive Administered Medications - up to 3 most recent administrations Medication Order MAR Action Action Date Dose Rate Site perflutren protein-A microsphers (Optison) (0.22 mg/mL) injection 0.5 mL 0.5 mL, Intravenous, ONCE PRN, 1 dose, Starting on Wed11/13/22 at 1337, Until Wed11/13/22 at 1155, for enhancement of sub-optimal echo images, Echo Lab (Intra-Procedure), Routine Given 11/13/2022 11:55 AM EST 2.1 mLs documented in this encounter Care Teams Stallion Manager Relationship Specialty Start Date End Date Asia Gil DO [address] [place] [address] PCP - General Family Medicine 07/09/20 documented as of this encounter
--- OUTSIDE RECORDS SUMMARY | 2024-05-02 12:06 | XMS_ITS | Encounter Summary ---
[place] [address] Care Team Providers Care Greeting Card Maker Name Role Phone Asia Gil DO Primary Care Provider [phone] Reason for Visit * Auth/Cert (Routine) Specialty Diagnoses / Procedures Referred By Leonel chin Referred To Contact Diagnoses Right upper quadrant pain Dysphagia, unspecified dysphagia, regurgitation, continued intermittent RUQ pain with history of retained stone (although most recent MRI negative for stones per patient), possible dilation of esophagus if appropriate. Please obtain bx to r/o H. Pylori, EOE Procedures PRO ENDOSCOPIC US EXAM, ESOPH PRO UPPER GI ENDOSCOPY, BIOPSY PRO UPPER GI ENDOSCOPY, DIAGNOSTIC PRO UP GI ENDOSCOPY, REMV TUMOR, SNARE PRO ANESTH, COMBINED UPPER OR LOWER ENDOSCOPY UPPER EUS- ENDOSCOPIC ULTRASOUND (WRVU 3.47) Jordan Dowling MD [facility] [place] [address] [facility] Referral ID Status Reason Start Date Expiration Date Visits Re quested Visits Authorized [id number] 1 1 Encounter Details Date Type Department Care Team (Late st Contact Info) Description 01/18/2023 2:45 PM EDT - 01/18/2023 3:45 PM EDT Surgery [place] [phone] Jordan Dowling MD [facility] [address] [place] [address] UPPER EUS- ENDOSCOPIC ULTRASOUND (WRVU 3.47) Social History Tobacco Use Types Packs/Day Years Used Date Smoking Tobacco: Never Smokeless Tobacco: Never Tobacco Cessation:Counseling Given: Not Answered Comments:uses medical marijauna Alcohol Use Standard Drinks/Week Comments Not Asked [...] Sign Reading Time Taken Comments Blood Pressure 104/55 01/18/2023 2:05 PM EDT Pulse 74 01/18/2023 2:05 PM EDT Temperature 36.8 ??C (98.2 ??F) 01/18/2023 2:05 PM ED T Respiratory Rate 16 01/18/2023 2:05 PM EDT Oxygen Saturation 96% 01/18/2023 2:05 PM EDT Inhaled Oxygen Concentration - - Weight 77.6 kg (171 lb 1.2 oz) 01/18/2023 2:05 P M EDT Height 160 cm (5' 2.99) 01/18/2023 2:05 PM EDT Body Mass Index 30.31 01/18/2023 2:05 PM EDT documented in this encounter Discharge Instructions * Discharge Instructions* Yves Pena RN - 01/18/2023 4:09 PM EDT Upper GI Endoscopy: What to Expect at Home Your Recovery You will be able to go home after your doctor or nurse checks to make sure you are not having any problems. You may have to stay overnight if you had treatment during the test. You may have a sore throat fora day or two after the test. This care sheet gives you a general idea about what to expect after the test. How can you care for yourself at home? Activity Rest when you feel tired. You can do your normal activities when it feels okay to do so. Diet Follow your doctor's directions for eating. Unless your doctor has told you not to, drink plenty of fluids. This helps to replace the fluids that were lost during the prep. Do not drink alcohol. Medicines Your doctor will tell you if and when you can restart your medicines. He or she will also give you instructions about taking any new medicines. If you take blood thinners, such as warfarin (Coumadin), clopidogrel (Plavix), or aspirin, be sure to talk to your doctor. He or she will tell you if and when to start taking those medicines again. Make sure that you understand exactly what your doctor wants you to do. If polyps were removed or a biopsy was done during the test, your doctor may tell you not to take aspirin or other anti-inflammatory medicines for a few days. These include ibuprofen (Advil, Motrin) and naproxen (Aleve). If you have a sore throat the day after the procedure, use an qpsf-gjr-fhczmdm spray to numb your throat. Sucking on throat lozenges and gargling with warm salt water may also help relieve your symptoms. Other instructions For your safety, do not drive or operate machinery until the medicine wears off and you can think clearly. Your doctor may tell you not to drive or operate machinery until the day after your test. Do not sign legal documents or make major decisions until the medicine wears off and you can think clearly. The anesthesia can make it hard for you to fully understand what you are agreeing to. Additional Information for Sedation Patients For patients who received sedation: You may have received medications before and/or during your procedure which effects your judgement and reaction time. Do not drive, operate machinery, drink alcoholic beverages or make important decisions for 24 hours. Be careful on stairs as you may be unsteady on your feet. You may eat a regular diet as tolerated. Do not smoke if you are alone. IV site: Slight redness or tenderness is normal, you can use a warm compress if you would like. If tenderness and/or redness increase or if foul drainage occurs, please contact your Doctor. Please call [phone] before 8pm Mon-Fri with problems, questions or concerns. If you call after 8pm or on weekends, call the Hospital at [phone] and ask to speak to the Audiovisual Aids Technician payroll consultant and the repeater operator will contact that person for you. When should you call for help? Call 911 anytime you think you may need emergency care. For example, call if: You passed out (lost consciousness). You pass maroon or bloody stools. You have trouble breathing. Call your doctor now or seek immediate medical care if: You have pain that does not get better after you take pain medicine. You are sick to your stomach or cannot drink fluids. You have new or worse belly pain. You have blood in your stools. You have a fever. You cannot pass stools or gas. Watch closely for changes in your health, and be sure to contact your doctor if you have any problems. Where can you learn more? [facility] View your After Visit Summary and more online at [email or web address] If you would like to provide feedback about your hospital experience, please call the Office of Patient and Family Relations at . If you have received this After Visit Summary in error, please immediately return it in person to the department, or notify the [facility] Privacy Office by calling toll free at between the hours of 8AM and 5PM to arrange for our retrieval of the documents at no cost to you. Content Version: 12.2 ?? 7041-0874 [employer]. Care instructions adapted under license by [facility]. If you have questions about a medical condition or this instruction, always ask your healthcare professional. [employer] disclaims any warranty or liability for your use of this information. Endoscopic Ultrasound (Oral): What to Expect At Home Your Recovery After you have an endoscopic ultrasound--a test to look for problems in the stomach, liver, gallbladder, and other organs--you will stay at the hospital or clinic for 1 to 2 hours. This will allow the medicine to wear off. You will be able to go home after your doctor or nurse checks to make sure you are not having any problems. You may have a sore throat for a day or two after the test. This care sheet gives you a general idea about what to expect after the test. How can you care for yourself at home? Activity Rest when you feel tired. You can do your normal activities when it feels okay to do so. Diet Follow your doctor's directions for eating. Unless your doctor has told you not to, drink plenty of fluids. Do not drink alcohol. Medicines Your doctor will tell you if and when you can restart your medicines. He or she will also give you instructions about taking any new medicines. If you take blood thinners, such as warfarin (Coumadin), clopidogrel (Plavix), or aspirin, be sure to talk to your doctor. He or she will tell you if and when to start taking those medicines again. Make sure that you understand exactly what your doctor wants you to do. If a biopsy was done during the test, your doctor may tell you not to take aspirin or other anti-inflammatory medicines for a few days. These include ibuprofen (Advil, Motrin) and naproxen (Aleve). If you have a sore throat the day after the procedure, use an vymn-xum-xzvyyyb spray to numb your throat. Sucking on throat lozenges and gargling with warm salt water may also help relieve your symptoms. Other instructions For your safety, do not drive or operate machinery until the medicine wears off and you can think clearly. Your doctor may tell you not to drive or operate machinery until the day after your test. Do not sign legal documents or make major decisions until the medicine wears off and you can think clearly. The anesthesia can make it hard for you to fully understand what you are agreeing to. Additional Information for Sedation Patients For patients who received sedation: You may have received medications before and/or during your procedure which effects your judgement and reaction time. Do not drive, operate machinery, drink alcoholic beverages or make important decisions for 24 hours. Be careful on stairs as you may be unsteady on your feet. You may eat a regular diet as tolerated. Do not smoke if you are alone. IV site: Slight redness or tenderness is normal, you can use a warm compress if you would like. If tenderness and/or redness increase or if foul drainage occurs, please contact your Doctor. Please call [phone] before 8pm Mon-Fri with problems, questions or concerns. If you call after 8pm or on weekends, call the Hospital at [phone] and ask to speak to the Audiovisual Aids Technician payroll consultant and the repeater operator will contact that person for you. When should you call for help? Call 911 anytime you think you may need emergency care. For example, call if: You passed out (lost consciousness). You pass maroon or bloody stools. You have trouble breathing. Call your doctor now or seek immediate medical care if: You have pain that does not get better after you take pain medicine. You are sick to your stomach or cannot drink fluids. You have new or worse belly pain. You have blood in your stools. You have a fever. You cannot pass stools or gas. Watch closely for changes in your health, and be sure to contact your doctor if you have any problems. Where can you learn more? [facility] View your After Visit Summary and more online at [email or web address] If you would like to provide feedback about your hospital experience, please call the Office of Patient and Family Relations at . If you have received this After Visit Summary in error, please immediately return it in person to the department, or notify the [facility] Privacy Office by calling toll free at between the hours of 8AM and 5PM to arrange for our retrieval of the documents at no cost to you. Content Version: 12.2 ?? [id number] [employer]. Care instructions adapted under license by [facility]. If you have questions about a medical condition or this instruction, always ask your healthcare professional. [employer] disclaims any warranty or liability for your use of this information. documented in this encounter Medications at Time of Discharge Medication Sig Dispensed Refills Start Date End Date lisinopriL (Zestril) 2.5 mg tablet Take 2.5 mg by mouth 2 times daily. 12/19/2022 [employer] Ultra Test Strip CHECK BLOOD SUGAR DAILY [...] 01/27/2021 12/22/2023 documented as of this encounter H&P Notes * Jarod Lopez MD - 01/18/2023 3:18 PM EDT Procedure: EGD and EUS, possible ERCP Indication: Dysphagia, regurgitation, RUQ pain, h/o retained gallstone History of Present Illness: Toyin Coley is a 67 y.o. F with PMH HTN, HLD, DM2, TIA, CKD, SIMMONS cirrhosis (bx confirmed, PSH lap CCY in 2016, ERCP with cholangioscopy for retained cystic duct vs GBinfundibulum stone c/b pancreatitis who now presents for EGD for evaluation of sx of dysphagia, regurgitation, and EUS for evaluation of on-going RUQ pain and to r/o retained stone. Patient Active Problem List Diagnosis Code ??? GERD (gastroesophageal reflux disease) K21.9 ??? Environmental allergies Z91.09 ??? Diabetes mellitus type 2, uncomplicated E11.9 ??? Hx-TIA (transient ischemic attack) Z86.73 ??? Hyperlipidemia E78.5 ??? Hypertension I10 ??? Restless legs syndrome (RLS) G25.81 ??? CKD (chronic kidney disease) N18.9 ??? Delirium R41.0 ??? Anxiety F41.9 ??? Diabetic neuropathy E11.40 ??? Nonalcoholic steatohepatitis K75.81 ??? Cystic duct calculus K80.20 ??? RUQ pain R10.11 ??? PONV (postoperative nausea and vomiting) R11.2, Z98.890 ??? Pancreatic pseudocyst K86.3 ??? Acute exacerbation of congestive heart failure I50.9 ??? HFrEF (heart failure with reduced ejection fraction) I50.20 ??? ASCVD (arteriosclerotic cardiovascular disease) I25.10 ??? Pancreatitis K85.90 ??? Pancreatic fluid collection with possible abscess K85.90 ??? Jazpt-zn-qtyxpmv kidney injury N17.9, N18.9 ??? Anemia of chronic disease D63.8 ??? Acute blood loss anemia D62 ??? Unstable angina I20.0 ??? PVD (peripheral vascular disease) with claudication I73.9 ??? Moderate mitral stenosis I05.0 ??? Abdominal pain R10.9 ??? Acute kidney injury N17.9 ??? Acute pulmonary edema J81.0 ??? Chronic pain disorder G89.4 ??? COVID-19 ruled out Z20.822 ??? Depression F32.A ??? Elevated troponin I level R77.8 ??? Generalized edema R60.1 ??? Hypoxemia R09.02 ??? Iron deficiency E61.1 ??? Iron deficiency anemia D50.9 ??? Leukocytosis D72.829 ??? 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, K74.60 ??? Neuropathy G62.9 ??? Obstructive sleep apnea G47.33 ??? Pain in both feet M79.671, M79.672 ??? Pulmonary atelectasis J98.11 ??? Restlessness and agitation R45.1 ??? Retained stone fragments Z18.83 ??? Retroperitoneal abscess K68.19 ??? Shortness of breath R06.02 ??? Stage 3b chronic kidney disease N18.32 ??? History of endoscopic retrograde cholangiopancreatography Z98.890 ??? Stressful life event affecting family Z63.79 ??? Tachycardia R00.0 Medications: Reviewed in EDH Allergies Allergen Reactions ??? Benzodiazepines Other (See Comments) Paradoxical reaction to benzodiazepines ??? House Dust ??? Hydrocodone-Acetaminophen Itching ??? Metoclopramide ??? Mold Extracts ??? Pollen Extracts ??? Propoxyphene Hcl Nausea And Vomiting ??? Unknown [Unclassified Drug] Most environmental allergies: grass, workman, trees,pollen Social History/Family History: Reviewed in EDH. No changes Exam: Patient Vitals for the past 24 hrs: Temp Pulse Resp BP SpO2 O2 Device 01/18/23 1405 36.8 ??C (98.2 ??F) 74 16 104/55 96 % RA Axox3, nad Anicteric, MMM CTAB RRR, no m/r/g abd soft nt nd +bs Assessment and Plan: Proceed with EGD: EUS: ASA Grade: ASA 2 - Patient with mild systemic disease with no functional limitations Mallampati score:II (soft palate, uvula, fauces visible) Sedation plan: MAC Risks and benefits of the procedure were discussed with the patient. Consent has been signed. Jarod Lopez MD documented in this encounter Plan of Treatment Upcoming Encounters Date Type Department Care Team (Latest Contact Info) Description 05/08/2024 10:30 AM EDT Hospital [place] [phone] Bk Contreras MD [facility] [place] [address] 05/08/2024 10:30 AM EDT - 05/08/2024 11:00 AM EDT [place] [phone] Bk Contreras MD [facility] [place] [address] INJECTION, ANESTHETIC AGENT AND/OR STEROID, TRANSFORAMINAL EPIDURAL, LUMBAR OR SACRAL, SINGLE LEVEL (WRVU 1.9) 05/12/2024 1:00 PM EDT Office Visit Cardiology at [address] [phone] Sadi Styles MD [facility] [place] [address] 05/29/2024 10:15 AM EDT TH Visit (TeleHealth) [facility] [place] [address] Natalee Sanchez, [facility] [place] [address] Scheduled Procedures Name Priority Associated Diagnoses Date/Ti me INJECTION, ANESTHETIC AGENT AND/OR STEROID, TRANSFORAMINAL EPIDURAL, LUMBAR OR SACRAL, SINGLE LEVEL (WRVU 1.9) Left lumbar radiculopathy 05/08/2024 10:30 AM EDT documented as of this encounter Procedures Procedure Name Priority Date/Time Associated Diagnosis Comments SURGICAL PATHOLOGY REPORT Routine 01/18/2023 3:53 PM EDT SPECIMEN TO PATHOLOGY Routine 01/18/2023 3:53 PM EDT SPECIMEN TO PATHOLOGY Routine 01/18/2023 3:53 PM EDT SPECIMEN TO PATHOLOGY Routine 01/18/2023 3:53 PM EDT SPECIMEN TO PATHOLOGY Routine 01/18/2023 3:53 PM EDT UPPER EUS-ENDOSCOPIC ULTRASOUND Routine 01/18/2023 3:39 PM EDT Up Gi Endoscopy, Remv Tumor, Snare ([id number]) 01/18/2023 3:34 PM EDT RUQ pain Dysphagia, unspecified type Regurgitation of food Constipation, unspecified constipation type Upper Gi Endoscopy, Biopsy ([id number]) 01/18/2023 3:34 PM EDT RUQ pain Dysphagia, unspecified type Regurgitation of food Constipation, unspecified constipation type Endoscopic Us Exam, Esoph ([id number]) 01/18/2023 3:34 PM EDT RUQ pain Dysphagia, unspecified type Regurgitation of food Constipation, unspecified constipation type POCT GLUCOSE Routine 01/18/2023 2:20 PM EDT documented in this encounter Results * Surgical Pathology Report (01/18/2023 3:53 PM EDT) FINAL DIAGNOSIS (AP) [id number] ? Location: 4T; EA13; A The signing pathologist has (i) examined the relevant preparation(s) for the specimen(s) and (ii) rendered or confirmed the diagnosis(es). . ?Surgical Pathology DIAGNOSIS A - Random gastric biopsies, biopsy (Multiple): - ??Gastric antrum-type and body/fundic-typ e mucosa, negative for diagnostic abnormality. B - Distal esophagus biopsies, biopsy (Multiple): - ??Squamous mucosa negative for diagnostic abnormality. - ??Oxyntocardiac mucosa negative for intestinal metaplasia. C - Proximal esophagus biopsies, biopsy (Multiple): - ??Squamous mucosa negative for diagnostic abnormality. D - Gastric polyp, resection: - ??Fragments of fundic gland polyp. Electronically signed by: ?Kenji TURCIOS, Ramón Verified: ??02/05/2023 15:08 ??Pathologist Performed at: ??-[facility] Dept. of [place]ology, [place] [address] Wrap Yarn Sorter: Sharlene Castellano MD, FCAP, ??CLIA Certificate: [id number] SPECIMEN(S) SUBMITTED A - random gastric biopsies, biopsy (Multiple) B - distal esophagus biopsies, biopsy (Multiple) C - proximal esophagus biopsies, biopsy (Multiple) D - gastric polyp, resection (1) CLINICAL INFORMATION 67-year-old female history of reflux and dysphagia SPECIMEN PROCESSING A - Labeled/Fixativ e: Random gastric biopsies, formalin. Quantity/Size: Three, ranging from 0.3-0.5 cm. Tissue Description: Soft, wellington-pink tissues. Sections/Proces sing: Submitted en toto ??in 1 cassette labeled A1. B - Labeled/Fixativ e: Distal esophagus, formalin. Quantity/Size: Two, 0.3 and 0.5 cm. Tissue Description: Soft, wellington-pink tissues. Sections/Proces sing: Submitted en toto ??in 1 cassette labeled B1. C - Labeled/Fixativ e: Proximal esophagus, formalin. Quantity/Size: Four, ranging from 0.2-0.6 cm. Tissue Description: Soft, pink-white tissues. Sections/Proces sing: Submitted en toto ??in 1 cassette labeled C1. D - Labeled/Fixativ e: Gastric polyp, formalin. Quantity/Size: Three, ranging from 0.4-1.0 cm. Tissue Description: [place]-pink polypoid tissue fragments. . SPECIMEN PROCESSING Sections/Proces sing: Entirely submitted in 1 cassette labeled D1. ??sdy 02/05/2023 3:08 PM EDT [facility] 01/18/2023 3:53 PM EDT Jarod Lopez MD PATHOLOGY/CYTOLOGY O MAUREEN Performing Organization Address [facility] [place] [address] * Specimen to Pathology (01/18/2023 3:53 PM EDT) AP Specimen 01/18/2023 3:53 PM EDT 01/18/2023 3:53 PM EDT Narrative [facility] - 01/18/2023 3:53 PM EDT Specimen requisition ordered. ??Separate Pathology report to follow Jordan Dowling MD PATHOLOGY/CYTOLOGY O MAUREEN Performing Organization Address [facility] Co de Phone Number [facility] [place] [address] * Specimen to Pathology (01/18/2023 3:53 PM EDT) AP Specimen 01/18/2023 3:53 PM EDT 01/18/2023 3:53 PM EDT Narrative [facility] - 01/18/2023 3:53 PM EDT Specimen requisition ordered. ??Separate Pathology report to follow Jordan Dowling MD PATHOLOGY/CYTOLOGY O MAUREEN Performing Organization Address [facility] Co de Phone Number [facility] [place] [address] * Specimen to Pathology (01/18/2023 3:53 PM EDT) AP Specimen 01/18/2023 3:53 PM EDT 01/18/2023 3:53 PM EDT Narrative [facility] - 01/18/2023 3:53 PM EDT Specimen requisition ordered. ??Separate Pathology report to follow Jordan Dowling MD PATHOLOGY/CYTOLOGY O MAUREEN Performing Organization Address [facility] [place] [address] * Specimen to Pathology (01/18/2023 3:53 PM EDT) AP Specimen 01/18/2023 3:53 PM EDT 01/18/2023 3:53 PM EDT Narrative [facility] - 01/18/2023 3:53 PM EDT Specimen requisition ordered. ??Separate Pathology report to follow Jordan Dowling MD PATHOLOGY/CYTOLOGY O MAUREEN Performing Organization Address [facility] [place] [address] * UPPER EUS-ENDOSCOPIC ULTRASOUND (01/18/2023 3:39 PM EDT) UPPER ENDOSCOPIC ULTRASOUND [facility] Endoscopy Procedure Date: 01/18/2023 3:39 PM ? Patient Name: Toyin Coley ? N: [id number] ? Date of : 1955 ? Age: 67 ? Order #: [id number] ? Instrument Name: [id number] ? Procedure: ? Upper EUS Indications: ? Dysphagia, Regurgitation, retained ? gallstone in gallbladder ? infundibulum Providers: ? Jordan Dowling MD, Jarod J. ? Alyssa Lopez Amin Memar Referring MD: ?Asia Verduzco ? Ozzy Gil Medicines: ? Monitored Anesthesia Care Complications: ? No immediate complications. Procedure: ? Pre-Anesthesia Assessment: ? - Prior to the procedure, a History ? and Physical was performed, and ? patient medications, allergies and ? sensitivities were reviewed. The ? patient's tolerance of previous ? anesthesia was reviewed. ? - The risks and benefits of the ? procedure and the sedation options ? and risks were discussed with the ? patient. All questions were ? answered and informed consent was ? obtained. ? - Patient identification and ? proposed procedure were verified ? prior to the procedure by the ? physician. The procedure was ? verified in the pre-procedure area. ? - Pre-procedure physical ? examination revealed no ? contraindications to sedation. ? - ASA Grade Assessment: II - A ? patient with mild systemic disease. ? - After reviewing the risks and ? benefits, the patient was deemed in ? satisfactory condition to undergo ? the procedure. ? - Monitored anesthesia care under ? the supervision of an ? anesthesiologist was determined to ? be medically necessary for this ? procedure based on age 65 or older ? and complex procedure (ERCP, EUS). ? The procedure, indications, ? benefits, risks and alternatives ? were explained to the patient. ? Specifically discussed were ? potential complications including, ? but not limited to, bleeding, ? perforation, infection, missing a ? cancer, and adverse medication ? reactions.The Endoscope was ? introduced through the mouth, and ? advanced to the second part of ? duodenum. The upper EUS was ? accomplished without difficulty. ? The patient tolerated the procedure ? well. ? Findings: ? ENDOSCOPIC FINDING: : ? The examined esophagus was normal. Biopsies were ? obtained from the proximal and distal esophagus with ? cold forceps for histology of suspected eosinophilic ? esophagitis. ? The Z-line was regular. ? Multiple 2 to 8 mm sessile polyps with lacy reticular ? pattern were found in the gastric fundus and in the ? gastric body. Biopsies were taken with a cold forceps ? for histology. ? The exam of the stomach was otherwise normal. ? The examined duodenum was normal. ? Biopsies were taken with a cold forceps in the ? gastric body and in the gastric antrum for ? Helicobacter pylori testing. ? ENDOSONOGRAPHIC FINDING: : ? The esophagus, stomach and duodenum and adjacent ? structures were visualized endosonographically. ? There was no sign of significant endosonographic ? abnormality in the ampulla. ? There was no sign of significant endosonographic ? abnormality in the common bile duct, in the common ? hepatic duct, in the cystic duct, in the bifurcation ? of the common hepatic duct and in the diffuse ? intrahepatic bile duct(s). The maximum diameter of ? the ducts were 4 mm. No stones, ducts of normal ? caliber and ducts with regular contour were ? identified. ? One stone was visualized endosonographically in the ? gallbladder neck. The stone was round. It was ? hyperechoic and characterized by shadowing. ? There was no sign of significant endosonographic ? abnormality in the entire pancreas. The pancreatic ? duct measured up to 3 mm in diameter at the ampulla, ? and was approximately 1 mm proximally. The pancreas ? was well visualized, no pathologic lymphadenopathy, ? no masses, no cysts, no calcifications, the ? pancreatic duct was well visualized from ampulla to ? tail, the pancreatic duct was thin in caliber, the ? pancreatic duct was regular in contour. ? Moderate Sedation: ? See anesthesia notes. Impression: ?- Numerous subcentimeter fundic ? gland polyps, benign appearing. The ? largest was removed with cold ? forceps and sent for pathology. ? - Otherwise normal EGD. ? Non-targeted gastric and esophageal ? biopsies obtained to rule out H. ? pylori gastritis and eosinophilic ? esophagitis. ? - Cholelithiasis in the gallbladder ? remnant, without cystic duct stone ? or choledocholithiasis as ? clinically questioned. ? - Otherwise normal EUS. Recommendation: ?- Await path results. ? - The attending physician listed ? above was present for the entire ? procedure. ? Procedure Code(s): ? --- Professional --- ? 05190, Esophagogastroduodenos copy, ? flexible, transoral; with ? endoscopic ultrasound examination, ? including the esophagus, stomach, ? and either the duodenum or a ? surgically altered stomach where ? the jejunum is examined distal to ? the anastomosis ? 26253, Esophagogastroduodenos copy, ? flexible, transoral; with biopsy, ? single or multiple Diagnosis Code(s): ? --- Professional --- ? K80.20, Calculus of gallbladder ? without cholecystitis without ? obstruction ? R13.10, Dysphagia, unspecified ? R11.10, Vomiting, unspecified ? --- Technical --- ? K80.20, Calculus of gallbladder ? without cholecystitis without ? obstruction ? R13.10, Dysphagia, unspecified ? R11.10, Vomiting, unspecified CPT copyright 2020 [employer]. All rights reserved. The codes documented in this report are preliminary and upon dry wall nailer review may be revised to meet current compliance requirements. Attending Participation: ? I was present and participated during the entire ? procedure, including non-yi portions. ? Jordan Dowling MD 01/18/2023 5:10:18 PM This report has been signed electronically. Number of Addenda: 0 Note Initiated On: 01/18/2023 3:39 PM PROVATION 01/18/2023 3:39 PM EDT Aggie Powers MD GENERAL SURGI JANNETH ORDERABLES PROVATION * POCT Glucose (01/18/2023 2:20 PM EDT) POC Glucose 123 65 - 199 mg/dL [facility] Comment: Supplemental ranges: <140 mg/dL before meals <180 mg/dL all other times of the day Blood 01/18/2023 2:20 PM EDT 01/18/2023 2:20 PM EDT Jordan Dowling MD POINT OF CARE TEST O MAUREEN [facility] [place] [address] documented in this encounter Visit Diagnoses Diagnosis RUQ pain Abdominal pain, right upper quadrant Dysphagia, unspecified type Regurgitation of food Constipation, unspecified constipation type Left lumbar radiculopathy Thoracic or lumbosacral neuritis or radiculitis, unspecified documented in this encounter Administered Medications Inactive Administered Medications - up to 3 most recent administrations Medication Order MAR Action Action Date Dose Rate Site lactated ringers infusion 100 mL/hr, Intravenous, CONTINUOUS, Starting on Wed01/18/23 at 1430, Until Wed01/18/23 at 1649, Endoscopy (Day of Procedure) New Bag 01/18/2023 2:30 PM EDT 100 mL/hr 100 mL/hr documented in this encounter Active and Recently Administered Medications Times are shown in EDT. Continuous Medication Order 01/16/2023 01/17/2023 01/18/2023 lactated ringers infusion (CANCELED) 100 mL/hr, Intravenous, CONTINUOUS, Starting on Wed01/18/23 at 1430, Until Wed01/18/23 at 1649, Endoscopy (Day of Procedure) 1430 (New Bag - Prov ider: Kay Bartholomew, RODERICK) documented in this encounter Care Teams Greeting Card Maker Relationship Specialty Start Date End Date Asia Gil DO [address] [place] [address] PCP - General Family Medicine 07/09/20 documented as of this encounter
--- OUTSIDE RECORDS SUMMARY | 2024-05-02 12:06 | XMS_ITS | Encounter Summary ---
Author Organization [facility] [place] [address] Care Team Providers Care Engineering Group Leader Name Role Phone Asia Gil DO Primary Care Provider +1- [phone] Encounter Details Date Type Department Care Team (Late st Contact Info) Description 11/10/2022 Telephone Cardiology at [address] [phone] Bernardo Santos, RN Social History Tobacco Use Types Packs/Day [...] encounter Miscellaneous Notes * Telephone Encounter - Bernardo Santos, RN - 11/10/2022 12:01 PM EST Images from the original note were not included. Amaris Evangelista Thomas A, RN We received an URG referral for this pt reason: post-stent, pt not feeling well. ?echo or vasc eval warranted? ??Referral & accompanying records in media tab. Would this warrant a triage call to see what is going on to determine if pt needs URG testing/otherbefore a clinic appt? Appreciate the above question from Amaris. Call placed to Ms. Coley in direct follow up. Describes (specifically) gradual decline in her overall energy level over the past 6- 8 months. Easily fatigued - washed out, low energy levels. Denies chest pain or dyspnea with exertion. Agreeable to visit with Dr. Cruz. Note routed to Dr. Cruz for his oversight and returned to [facility] for scheduling. Please arrange for TTE (already ordered). Chase Santos assistant inventory manager Team Nurse [facility] Ambulatory Cardiology documented in this encounter Plan of Treatment Upcoming Encounters Date Type Department Care Team (Latest Contact Info) Description 05/08/2024 10:30 AM EDT Hospital Encounter Pain Management [place] [phone] Bk Contreras MD [facility] [place] [address] 05/08/2024 10:30 AM EDT - 05/08/2024 11:00 AM EDT Surgery Pain Management [place] [phone] Bk Contreras MD [facility] [place] [address] INJECTION, ANESTHETIC AGENT AND/OR STEROID, TRANSFORAMINAL EPIDURAL, LUMBAR OR SACRAL, SINGLE LEVEL (WRVU 1.9) 05/12/2024 1:00 PM EDT Office Visit Cardiology at [place] [phone] Sadi Styles MD [facility] [place] [address] 05/29/2024 10:15 AM EDT TH Visit (TeleHealth) [facility] at [place] [phone] Natalee Sanchez, HEEL BUILDER [facility] [place] [address] Scheduled Procedures Name Priority Associated Diagnoses Date/Ti me INJECTION, ANESTHETIC AGENT AND/OR STEROID, TRANSFORAMINAL EPIDURAL, LUMBAR OR SACRAL, SINGLE LEVEL (WRVU 1.9) Left lumbar radiculopathy 05/08/2024 10:30 AM EDT documented as of this encounter Visit Diagnoses Not on filedocumented in this encounter Care Teams Engineering Group Leader Relationship Specialty Start Date End Date Asia Gil DO [address] [place] [address] PCP - General Family Medicine 07/09/20 documented as of this encounter
--- OUTSIDE RECORDS SUMMARY | 2024-05-02 12:06 | XMS_ITS | Encounter Summary ---
[place] [address] Care Team Providers Care Assembler Motor Vehicle Name Role Phone AngelTiny alexandrarafaela Dunn DO Primary Care Provider +1- [phone] Encounter Details Date Type Department Care Team (Late st Contact Info) Description 07/01/2022 Ancillary Procedure [place] [phone] Amy Herring MD [facility] [place] [address] Social History Tobacco Use Types Packs/Day Years [...] EDT Hospital Encounter [place] [phone] Bk Contreras MD [facility] [place] [address] 05/08/2024 10:30 AM EDT - 05/08/2024 11:00 AM EDT [place] [phone] Bk Contreras MD [facility] [place] [address] INJECTION, ANESTHETIC AGENT AND/OR STEROID, TRANSFORAMINAL EPIDURAL, LUMBAR OR SACRAL, SINGLE LEVEL (WRVU 1.9) 05/12/2024 1:00 PM EDT Office Visit Cardiology at [address] [phone] Sadi Styles MD [facility] [place] [address] 05/29/2024 10:15 AM EDT TH Visit (TeleHealth) [facility] [place] [phone] Natalee Sanchez APRN [facility] [place] [address] Scheduled Procedures Name Priority Associated Diagnoses Date/Ti me INJECTION, ANESTHETIC AGENT AND/OR STEROID, TRANSFORAMINAL EPIDURAL, LUMBAR OR SACRAL, SINGLE LEVEL (WRVU 1.9) Left lumbar radiculopathy 05/08/2024 10:30 AM EDT documented as of this encounter Procedures Procedure Name Priority Date/Time Associated Diagnosis Comments FILM LIBRARY STORAGE ONLY DX FOOT Routine 07/01/2022 12:00 AM EDT documented in this encounter Results * Film Library- Storage Only DX Foot (07/01/2022 12:00 AM EDT) Narrative [facility] - 08/26/2023 9:59 PM EST This exam is auto-finalizing. It's purpose is for storage only. Amy Herring MD IMG FILM LIBRARY ORD ERABLES [facility] [place], [place] documented in this encounter Visit Diagnoses Not on filedocumented in this encounter Care Teams Assembler Motor Vehicle Relationship Specialty Start Date End Date Asia Gil DO [address] [place] [address] PCP - General Family Medicine 07/09/20 documented as of this encounter
--- OUTSIDE RECORDS SUMMARY | 2024-05-02 12:06 | XMS_ITS | Encounter Summary ---
[place] [address] Care Team Providers Care Water And Gas Helper Name Role Phone Asia Gil DO Primary Care Provider +1- [phone] Encounter Details Date Type Department Care Team (Late st Contact Info) Description 12/30/2022 Telephone [place] [phone] Rachel Noble Social History Tobacco Use Types Packs/Day Years [...] encounter Miscellaneous Notes * Telephone Encounter - Rachel Noble - 12/30/2022 8:06 AM EDT Toyin Coley [id number] Diagnosis/Indication: Recommend EUS with EGD per Jamies recommendation and colo within the next 2-4weeks. MAC due to EUS ?? Please review patient chart to confirm if previous Endoscopy procedure was performed within [facility]. If yes, take note of Anesthesia type used. If previous procedure found, and with MAC/propofol Anesthesia support was used, schedule this procedure with Anesthesia and skip the Anesthesia portion of questions. If not performed within [facility] system, not performed at all, or performed with IVCS, ask Anesthesia questions. SCHEDULING QUESTIONS (ask all patient these questions) 1. Have you ever had a/an Upper EUS before? Yes: Date over [address], [address] [facility] If yes, did you have any problems with the procedure (such as waking up during the procedure, pain or difficulties afterwards, etc.)? No What type of sedation was used: Other: unknown 2. Do you take any blood thinners or have you been diagnosed with a bleeding disorder that increases your risk of bleeding with procedures? No 3. Do you have a Pacemaker or Defibrillator device? If yes, send pool message to Cardiology with patient information and date or procedure. No 4. Are you a diabetic? If yes, call PCP/managing provider to discuss use of prep and any questions or concerns related to. Yes: Controlled by diet or medication? Both 5. Do you take any iron supplements or vitamins that contain iron? No 6. Do you have a preference regarding the gender of your provider? No ANESTHESIA QUESTIONS (YES to any question, please book with Anesthesia support) 7. Have you ever been diagnosed with Pulmonary Hypertension and/or Congential Heart Disease? Yes 8. Have you been diagnosed with A-Fib (atrial fibrillation) that is NOT being well controled with medications? No 9. Have you ever had an allergic or adverse reaction to Fentanyl or Versed? No 10. Have you had a problem with sedation or anesthesia? (Waking up during procedure, extreme confusion after, etc.) No 11. Do you have a diagnosis of Obstructive Sleep Apnea that requires the use of a c-pap machine? No 12. Do you use an oxygen tank at home? No 13. Do you use a rescue inhaler more than twice per day? (COPD, severe asthma) No 14. Do you experience breathing problems when you lay flat for a period of time? No 15. Do you take prescription narcotic pain medications, including suboxone or methodone? No SCHEDULING CONFIRMATIONS: Please note any and all parts of your conversation with the patient here. 16. We offer all new patients an opportunity to have an appointment with one of our associate care providers to learn more about your upcoming procedure, ask questions and get answers. These appointments are offered via telehealth. Would you be interested in scheduling this appointment? (Only ask if NEW referral patient; skip this question if GI provider ordered the procedure.) No 17. Is there any other information or concerns you would like to us to share with your care team inrelation to your upcoming scheduled procedure? No 18. You must have a responsible republican who will drive you to your procedure, stay on campus for the entire duration of your procedure, and drive you home from your procedure. Who will likely be your water taxi driver for the procedure? *Please Verify the height and weight, and adjust if height and/or weight have changed* Estimated body mass index is 31.3 kg/m?? as calculated from the following: Height as of 04/23/22: 160 cm (5' 3). Weight as of 04/23/22: 80.2 kg (176 lb 11.2 oz). *Delete if not needed* Height: 5'3'' Weight: 169 BMI: 29.9 Age:67 y.o. documented in this encounter Plan of Treatment Upcoming Encounters Date Type Department Care Team (Latest Contact Info) Description 05/08/2024 10:30 AM EDT Hospital [place] [phone] Bk Contreras MD [facility] [place] [address] 05/08/2024 10:30 AM EDT - 05/08/2024 11:00 AM EDT [place] [phone] Bk Contreras MD [facility] [place] [address] INJECTION, ANESTHETIC AGENT AND/OR STEROID, TRANSFORAMINAL EPIDURAL, LUMBAR OR SACRAL, SINGLE LEVEL (WRVU 1.9) 05/12/2024 1:00 PM EDT Office Visit Cardiology at [address] [phone] Sadi Styles MD [facility] [place] [address] 05/29/2024 10:15 AM EDT TH Visit (TeleHealth) [facility] [place] [phone] Natalee Sanchez APRN [facility] [place] [address] Scheduled Procedures Name Priority Associated Diagnoses Date/Ti me INJECTION, ANESTHETIC AGENT AND/OR STEROID, TRANSFORAMINAL EPIDURAL, LUMBAR OR SACRAL, SINGLE LEVEL (WRVU 1.9) Left lumbar radiculopathy 05/08/2024 10:30 AM EDT documented as of this encounter Visit Diagnoses Not on filedocumented in this encounter Care Teams Water And Gas Helper Relationship Specialty Start Date End Date Asia Gil DO [address] [place] [address] PCP - General Family Medicine 07/09/20 documented as of this encounter
--- OUTSIDE RECORDS SUMMARY | 2024-05-02 12:06 | XMS_ITS | Encounter Summary ---
[place] [address] Care Team Providers Care Government Program Manager Name Role Phone Angelibrahima Asiarafaela Dunn DO Primary Care Provider +1- [phone] Encounter Details Date Type Department Care Team (Late st Contact Info) Description 05/21/2022 Ancillary Procedure [place] [phone] Amy Herring MD [facility] DR [place] [address] Social History Tobacco Use Types [...] 10:30 AM EDT Hospital Encounter [place] [phone] Bk Contreras MD [facility] [place] [place] [address] 05/08/2024 10:30 AM EDT - 05/08/2024 11:00 AM EDT Surgery [place] [phone] Bk Contreras MD [facility] [place] [address] INJECTION, ANESTHETIC AGENT AND/OR STEROID, TRANSFORAMINAL EPIDURAL, LUMBAR OR SACRAL, SINGLE LEVEL (WRVU 1.9) 05/12/2024 1:00 PM EDT Office Visit Cardiology at [address] [phone] Sadi Styles MD [facility] [place] [address] 05/29/2024 10:15 AM EDT TH Visit (TeleHealth) [place] [phone] Natalee Sanchez APRN [facility] [place] [address] Scheduled Procedures Name Priority Associated Diagnoses Date/Ti me INJECTION, ANESTHETIC AGENT AND/OR STEROID, TRANSFORAMINAL EPIDURAL, LUMBAR OR SACRAL, SINGLE LEVEL (WRVU 1.9) Left lumbar radiculopathy 05/08/2024 10:30 AM EDT documented as of this encounter Procedures Procedure Name Priority Date/Time Associated Diagnosis Comments FILM LIBRARY STORAGE ONLY DX FOOT Routine 05/21/2022 12:00 AM EDT documented in this encounter Results * Film Library- Storage Only DX Foot (05/21/2022 12:00 AM EDT) Narrative [facility] - 08/26/2023 9:58 PM EST This exam is auto-finalizing. It's purpose is for storage only. Amy Herring MD IMG FILM LIBRARY ORD ERABLES [facility] [place], [place] documented in this encounter Visit Diagnoses Not on filedocumented in this encounter Care Teams Government Program Manager Relationship Specialty Start Date End Date Asia Gil DO [address] [place] [address] PCP - General Family Medicine 07/09/20 documented as of this encounter
--- OUTSIDE RECORDS SUMMARY | 2024-05-02 12:06 | XMS_ITS | Encounter Summary ---
Author Organization [facility] [place] [address] Care Team Providers Care Child Development Director Name Role Phone Asia Gil DO Primary Care Provider +1- [phone] Reason for Referral * Diagnostic Test (Routine) - Closed Specialty Diagnoses / Procedures Referred By Contac t Referred To Contact Cardiology Diagnoses Hyperlipidemia, unspecified hyperlipidemia type Hypertension, unspecified type HFrEF (heart failure with reduced ejection fraction) ASCVD (arteriosclerotic cardiovascular disease) Coronary artery disease, unspecified vessel or lesion type, unspecified whether angina present, unspecified whether [place] or transplanted heart PVD (peripheral vascular disease) with claudication Procedures Echocardiogram Transthoracic Antonio Aiken MD [facility] [place] [address] [facility] [place] [address] Referral ID Status Reason Start Date Expiration Date V isits Requested Visits Authorized [id number] Closed Specialty Service Requested 04/23/2022 04/23/2023 1 1 Reason for Visit * Consultation (Routine) - Closed Specialty Diagnoses / Procedures Referred By Contjaymie t Referred To Contact Cardiology Diagnoses ASCVD (arteriosclerotic cardiovascular disease) Other specified postprocedural states Hyperlipidemia, unspecified Hyperlipidemia. Hx ASCVD, s/p cath, liver cirrhosis 2ndary to SIMMONS. Eval of Hyperlipidemia with liver, panreatic, renal disease...high chol despite statin. (last seen 09/11/21-Nancy) Asia Gil DO [address] [place] [address] Antonio Aiken MD [facility] [place] [address] Referral ID Status Reason Start Date Expiration Date V isits Requested Visits Authorized [id number] Closed Consult, Test & Treat PCP Updated and/or Approved 03/17/2022 03/17/2023 6 6 Encounter Details Date Type Department Care Team (Latest Contact Info) Description 04/23/2022 11:40 AM EDT Office Visit Cardiology at [address] [address] Antonio Aiken MD [facility] [place] [address] Hx-TIA (transient ischemic attack); Hyperlipidemia, unspecified hyperlipidemia type; Hypertension, unspecified type; HFrEF (heart failure with reduced ejection fraction); ASCVD (arteriosclerotic cardiovascular disease); Coronary artery disease, unspecified vessel or lesion type, unspecified whether angina present, unspecified whether [place] or transplanted heart; Unstable angina; PVD (peripheral vascular disease) with claudication; Moderate mitral stenosis Social History Tobacco Use Types Packs/Day Years [...] Sign Reading Time Taken Comments Blood Pressure 124/53 04/23/2022 11:49 AM EDT Pulse 65 04/23/2022 11:49 AM EDT Temperature - - Respiratory Rate - - Oxygen Saturation 98% 04/23/2022 11: 49 AM EDT Inhaled Oxygen Concentration - - Weight 80.2 kg (176 lb 11.2 oz) 022 11:49 AM EDT Height 160 cm (5' 3) 04/23/2022 11:49 AM EDT Body Mass Index 31.3 04/23/2022 11:49 AM EDT documented in this encounter Progress Notes * Antonio Aiken MD - 04/23/2022 11:40 AM EDT Images from the original note were not included. [facility] [place] [address] [address] CARDIOLOGY OUTPATIENT CLINIC VISIT [facility] Toyin Nelson Lion 04/23/2022 Referring Providers: DO Jeffery Cano Irene B, DO [address] [place] [address] CARDIAC-RELEVANT PROBLEM LIST: 1. HFrEF (heart failure with reduced ejection fraction), EF 40% on echo in January 2021 2. ASCVD (arteriosclerotic cardiovascular disease) Calcified severe 2 vessel CAD of the LAD and RCAand moderate but hemodynamically significant LCX??disease.??She underwent a PCI of the calcified LAD on 04/11/2021 using a 2.5 x 24 mm SYNERGY XD ASIM stent. RCA and LCX disease medically managed. 3. Moderate MS, Echo January 2021 showed mean gradient across the mitral valve is 12 mmHg (HR= 108bpm). The mitral valve area is calculated at 1.4 cm2. by continuity equation. 4. Mild , Echo January 2021 showed the mean gradient = 13 mmHg, DOI = 0.46, LVS I= 30ml/m2, the calculated aortic valve area is 1.5 cm2. 5. Pulm Hypertension. Echo January 2021 showed PASP 34 mmHg 6. CVD, Hx of TIA 7. Hyperlipidemia 8. Hypertension 9. Restless legs syndrome (RLS) 10. Diabetic nephropathy, CKD (chronic kidney disease) 11. Delirium 12. Diabetic neuropathy 13. Nonalcoholic steatohepatitis 14. Pancreatic pseudocyst, Pancreatitis, Pancreatic abscess 15. Ockwe-io-oqvyxnx kidney injury 16. Anemia of chronic disease 17. Acute blood loss anemia HISTORY OF PRESENT ILLNESS: Toyin Lion is a 67 y.o. female patient presenting for an outpatient cardiology visit. Toyin Lion??is a 66 y.o.??female??with a medical history of SIMMONS cirrhosis (biopsy confirmed 2007), prior lap-ronnie, HTN, HLD, DMII c/b diabetic neuropathy, GERD, prior TIA, & CKD??III/A2-3??recently discharged after being admitted with pancreatitis re-presenting with shortness of breath found to have 40lb weight gain, lower extremity edema, bibasilar crackles, pulmonary vascular congestion, and abdominal wall anasarca consistent with volume overload. During that admission in February 2021,pro-BNP elevated and EF reduced on echo, consistent with CHF exacerbation. ??Troponin on admission was elevated to 0.03, which remained flat on repeat lab. EKG showed T wave inversions which had beenpresent in the past, and she has denied chest pain throughout admission.??TTE here reveals reduced EF with WMAs concerning for ischemia in the LAD distribution vs stress cardiomyopathy given apical kinesis demonstrated on Echo.??She underwent a left heart cath to evaluate her new onset LV dysfunction and low level NSTEMI in February 2021 and was found to have severe 2 vessel CAD of the LAD and RCA and moderate but hemodynamically significant LCX??disease.?? She was not a surgical candidate. Managed conservatively and successfully discharged. I saw her in clinic in March 2021 when she was still having signififcant anginal symptoms. She underwent a PCI of the calcified LAD on 04/11/2021 for her symptoms of angina. We perfromed a PCI of the angulated and heavily calcified mid LAD using a 2.5 x 24 mm SYNERGY XD ASIM stent. She has LCX and RCA disease, which [...] performed which noted only mild occlusive disease. ABIs 06/16/2021 Interpretation:?? RIGHT: Mild arterial occlusive disease at the foot/toe level with no significant lower extremity arterial occlusive disease to the ankle at rest. ?? LEFT: Mild arterial occlusive disease at the foot/toe level with no significant lower extremity arterial occlusive disease to the ankle at rest. TTE 02/05/2021: SUMMARY:?? 1. The left ventricular chamber size is [...] mildly thickened. Mild mitral leaflet calcification is visualized.There is moderate mitral stenosis present. The mean [...] study in our system available for comparison. Review of systems: Please see the HPI for pertinent positives and negatives. The remainder of the ROS was reviewed and is negative. PAST MEDICAL HISTORY: has a past medical history of CKD (chronic kidney disease) (04/05/2020), Delirium (04/05/2020), Diabetes mellitus type 2, uncomplicated (05/14/2014), TIA (transient ischemic attack)(05/14/2014), Hyperlipidemia (05/28/2014), Hypertension (05/28/2014), and Restless legs syndrome (RLS) ( 04/05/2020). PAST SURGICAL HISTORY: Past Surgical History: Procedure Laterality Date ??? CT GUIDED DRAIN PANCREATIC/PERIPANCREATIC 02/20/2021 CT Guided Drain Pancreatic/Peripancreatic 02/20/2021 Mauro Thomas, DO [facility] RAD CAT SCAN ??? IR DRAIN CHECK/CHANGE/REMOVE 03/13/2021 IR Drain Check/Change/Remove 03/13/2021 Chris Jamil MD [facility] INTERVENTIONL RAD ??? PRO ERCP,DIAGNOSTIC N/A 01/17/2021 ERCP performed by Eliel Leigh MD at [facility] ENDOSCOPY SOCIAL HISTORY: reports that she has never smoked. She has never used smokeless tobacco. She reports previous alcohol use. She reports current drug use. Frequency: 7.00 times per week. Drug: Marijuana. FAMILY HISTORY: family history is not on file. MEDICATIONS: Current Outpatient Medications Medication Sig Dispense Refill ??? lisinopriL (Zestril) 5 mg Tablet Take 1 tablet by mouth daily. (Patient taking differently: Take 5 mg by mouth 2 times daily.) 90 tablet 3 ??? torsemide (Demadex) 10 mg Tablet Take [...] pen 11 Units. ??? OneTouch Ultra2 Meter [facility] USE DIRECTED TO TEST BLOOD GLUCOSE ??? OneTouch Delica Plus Lancet 33 gauge Misc USE TO TEST BLOOD SUGAR DAILY ??? BD Dionna 2nd Gen Pen Needle 32 gauge x Needle USE WITH DAILY INSULIN ??? aspirin 81 mg Tablet, Chewable Take 81 mg by mouth daily. 90 tablet 3 ??? clopidogreL (Plavix) 75 mg Tablet Take 1 tablet by mouth daily. 90 tablet 3 ??? melatonin 3 mg Tablet Take 2 tablets by mouth nightly. 180 tablet 3 ??? traZODone (Desyrel) 50 mg Tablet Take 0.5 tablets by mouth nightly. (Patient taking differently: Take 50 mg by mouth nightly.) 45 tablet 3 ??? polyethylene glycoL (Miralax) 17 gram Powder [...] Release(E.C.) Take 1 capsule by mouth daily. 30tablet 11 ??? pantoprazole EC (Protonix) 40 mg Tablet, Delayed Release (E.C.) Take 1 tablet by mouth daily. 90 tablet 3 ??? oxyCODONE (Roxicodone) 5 mg Tablet Take 1 tablet by mouth every 8 hours as needed for Pain. (Patient not taking: No sig reported) 15 tablet 0 No current facility-administered medications for this visit. ALLERGIES: Reviewed and updated as appropriate in the medical record: Benzodiazepines, House dust, Hydrocodone-acetaminophen, Metoclopramide, Mold extracts, Pollen extracts, Propoxyphene hcl, and Unknown [unclassified drug] PHYSICAL EXAMINATION: Vitals: Patient Vitals for the past 24 hrs: Pulse BP SpO2 04/23/22 1149 65 124/53 98 % Constitutional: Normal general appearance, no distress Extremities: No clubbing; no edema Musculoskeletal: No significant kyphosis; no difficulty in ambulating across the room and stepping up to exam table Skin: No cyanosis, no open sores Neurologic: Alert, oriented to person, place and time Psychiatric: Normal mood and affect; no barriers to learning identified TESTING: I have reviewed the pertinent outside records, laboratory data, and imaging studies. 1. LABS: No results for input(s): WBC, HGB, HCT, PLATELET, NA, K, BUN, CREATININE, HA1C, ALT, CHLPL, INR in the last 720 hours. Lab Results Component Value Date CHLPL 149 05/14/2021 HDL 40 05/14/2021 CHOLHDL 3.7 05/14/2021 TRIG 269 05/14/2021 LDLCHOL 55 05/14/2021 LDLDIRECT 75 05/14/2021 ASSESSMENT/PLAN: Toyin Lion is a 67 y.o. female patient presenting for an outpatient cardiology visit for the following cardiovascular conditions: Hx-TIA (transient ischemic attack) Hyperlipidemia, unspecified hyperlipidemia type Hypertension, unspecified type HFrEF (heart failure with reduced ejection fraction) ASCVD (arteriosclerotic cardiovascular disease) Coronary artery disease, unspecified vessel or lesion type, unspecified whether angina present, unspecified whether [place] or transplanted heart Unstable angina PVD (peripheral vascular disease) with claudication Moderate mitral stenosis 1. Coronary disease. Calcified severe 2 vessel CAD of the LAD and RCA and moderate but hemodynamically significant LCX??disease.?? She underwent a PCI of the calcified LAD on 04/11/2021 for her symptoms of angina. We perfromed a PCI of the angulated and heavily calcified mid LAD using a 2.5 x 24 mm SYNERGY XD ASIM stent. She has LCX and RCA disease, which we continue to medically manage. Successfully completed cardiacrehab. After that she was quite active and going to phase 3 cardiac rehab program 2 times a week. At that time she was doing quite well. Her neuropathy was well controlled on gabapentin. About 3 weeks ago her gabapentin was reduced for concerns of renal disease. Since then Toyin has been miserable.Her neuropathy is extremely severe, she is in [...] I will start Zetia 10 mg daily. 2. CHF, EF 40%, mod MS mild , valvular heart disease. She appears euvolemic today, no edema and symptoms of shortness of breath are improving. She shouldcontinue Torsemide 20 mg daily. We will repeat an echo. 3. Diabetes. I advised strict control 4. CVD. Stable 5. CKD. We will check a repeat BMP 6. Hypertension. As above Thank you for the opportunity to take care of Toyin Lion. Sincerely, Dr. Antonio Aiken MD [facility] [employer] Operator Interventional Cardiology 04/23/2022 CC: Asia Gil DO documented in this encounter Plan of Treatment Upcoming Encounters Date Type Department Care Team (Latest Contact Info) Description 05/08/2024 10:30 AM EDT Hospital [place] [address] Bk Contreras MD [facility] [place] [address] 05/08/2024 10:30 AM EDT - 05/08/2024 11:00 AM [place] [address] Bk Contreras MD [facility] [place] [address] INJECTION, ANESTHETIC AGENT AND/OR STEROID, TRANSFORAMINAL EPIDURAL, LUMBAR OR SACRAL, SINGLE LEVEL (WRVU 1.9) 05/12/2024 1:00 PM EDT Office Visit Cardiology at [address] [address] Sadi Styles MD [facility] [place] [address] 05/29/2024 10:15 AM EDT TH Visit (TeleHealth) [facility] [place] [address] Natalee Sanchez APRN [facility] [place] [address] Scheduled Procedures Name Priority Associated Diagnoses Date/Ti me INJECTION, ANESTHETIC AGENT AND/OR STEROID, TRANSFORAMINAL EPIDURAL, LUMBAR OR SACRAL, SINGLE LEVEL (WRVU 1.9) Left lumbar radiculopathy 05/08/2024 10:30 AM EDT documented as of this encounter Results * ECHO COMPLETE W CONTRAST (11/13/2022 1:37 PM EST) Anatomical Region Laterality Modality Cardiac Other 11/13/2022 11:1 6 AM EST Narrative 11/13/2022 1:54 PM EST ? Echocardiogram Report Name: TOYIN LION I ?Study Date: 11/13/2022 11:16 AMBP: 154/70 mmHg ? Patient Location: [address] [place] [address] : 1955 ? Height: 160 cm ? Account: [id number] Age: 67 yrs ? Weight: 78 kg Gender: Female ?BSA: 1.8 m2 Ordering Physician: ANTONIO AIKEN Referring Physician: ANTONIO AIKEN Performed By: Cassie Washington Reason For Study: Hyperlipidemia, Hypertension, HFrEF, ASCVD, Coronary artery disease, PVD Exam Location: [facility]. Interpretation Summary Left ventricle is of [...] the mitral valve is 7 mmHg. Procedure Complete-[id number]. Image enhancement Optison was used for left [...] Date: 1:16 AMBP: 154/70 mmHg Patient Location: [id number] : 1955 Height: 160 cm Account: [id number] Age: 67 yrs Weight: 78 kg Gender: Female BSA: 1.8 m2 Ordering Physician: ANTONIO AIKEN Referring Physician: ANTONIO AIKEN Performed By: Cassie Washington Reason For Study: Hyperlipidemia, Hypertension, HFrEF, ASCVD, Coronaryartery disease, PVD Exam Location: [facility]. Interpretation Summary Left ventricle is of [...] across themitral valve is 7 mmHg. Procedure Complete-[id number]. Image enhancement Optison was used for left [...] 3-5moderate 5 - 6-14large Aneurysmal 15-16diffuse Antonio Aiken MD ECHO ORDERABLES documented in this encounter Visit Diagnoses Diagnosis Hx-TIA (transient ischemic attack) Transient ischemic attack (TIA), and cerebral infarction without residual deficits Hyperlipidemia, unspecified hyperlipidemia type Hypertension, unspecified type HFrEF (heart failure with reduced ejection fraction) ASCVD (arteriosclerotic cardiovascular disease) Unspecified cardiovascular disease Coronary artery disease, unspecified vessel or lesion type, unspecified whether angina present, unspecified whether [place] or transplanted heart Unstable angina Intermediate coronary syndrome PVD (peripheral vascular disease) with claudication Peripheral vascular disease, unspecified Moderate mitral stenosis Mitral stenosis Hyperlipidemia, unspecified hyperlipidemia type Hypertension, unspecified type HFrEF (heart failure with reduced ejection fraction) ASCVD (arteriosclerotic cardiovascular disease) Unspecified cardiovascular disease Coronary artery disease, unspecified vessel or lesion type, unspecified whether angina present, unspecified whether [place] or transplanted heart PVD (peripheral vascular disease) with claudication Peripheral vascular disease, unspecified Left lumbar radiculopathy Thoracic or lumbosacral neuritis or radiculitis, unspecified documented in this encounter Care Teams Child Development Director Relationship Specialty Start Date End Date Asia Gil DO [address] [facility] [place] [address] PCP - General Family Medicine 07/09/20 documented as of this encounter
--- OUTSIDE RECORDS SUMMARY | 2024-05-02 12:06 | XMS_ITS | Encounter Summary ---
Author Organization [facility] [place] [address] Care Team Providers Care Program Evaluation Consultant Name Role Phone Asia Gil DO Primary Care Provider +1- [phone] Reason for Visit * Diagnostic Test (Routine) - Closed Specialty Diagnoses / Procedures Referred By Contjaymie t Referred To Contact Diagnoses Pain in both feet Procedures ADRY, legs, multiple levels Buck Buchanan, TEASELER [facility] [place] [address] [facility] Vascular Lab [address] [place] [address] Referral ID Status Reason Start Date Expiration Date V isits Requested Visits Authorized [id number] Closed Specialty Service Requested 05/20/2023 05/19/2024 1 1 Encounter Details Date Type Department Care Team (Late st Contact Info) Description 06/28/2023 2:00 PM EDT Tech [place] [address] Brenda Wasserman Pain in both feet Social History Tobacco Use Types Packs/Day Years Used Date Smoking Tobacco: Never Smokeless Tobacco: Never Comments:uses medical yumiko ander Alcohol Use Standard Drinks/Week Comments Not Asked [...] 10:30 AM EDT Hospital Encounter Pain Management [place] [phone] Bk Contreras MD [facility] [place] [address] 05/08/2024 10:30 AM EDT - 05/08/2024 11:00 AM EDT Surgery Pain Management [place] [phone] Bk Contreras MD [facility] [place] [address] INJECTION, ANESTHETIC AGENT AND/OR STEROID, TRANSFORAMINAL EPIDURAL, LUMBAR OR SACRAL, SINGLE LEVEL (WRVU 1.9) 05/12/2024 1:00 PM EDT Office Visit Cardiology at [place] [phone] Sadi Styles MD [facility] [place] [address] 05/29/2024 10:15 AM EDT TH Visit (TeleHealth) [facility] at [place] [phone] Natalee Sanchez APRN [facility] [place] [address] Scheduled Procedures Name Priority Associated Diagnoses Date/Ti me INJECTION, ANESTHETIC AGENT AND/OR STEROID, TRANSFORAMINAL EPIDURAL, LUMBAR OR SACRAL, SINGLE LEVEL (WRVU 1.9) Left lumbar radiculopathy 05/08/2024 10:30 AM EDT documented as of this encounter Procedures Procedure Name Priority Date/Time Associated Diagnosis Comments ADRY, LEGS, MULTIPLE LEVELS Routine 06/28/2023 1:37 PM EDT Pain in both feet documented in this encounter Results * ADRY, legs, multiple levels (06/28/2023 1:37 PM EDT) VB Text Report Department: Vascular Surgery Lab Patient: [id number] (TOYIN LION) CPT: 35319 Referring Physician: BUCK BUCHANAN ?? Phone: Indications: [...] unspecified documented in this encounter Care Teams Program Evaluation Consultant Relationship Specialty Start Date End Date Asia Gil DO [address] [place] [address] PCP - General Family Medicine 07/09/20 documented as of this encounter
--- OUTSIDE RECORDS SUMMARY | 2024-05-02 12:06 | XMS_ITS | Encounter Summary ---
Author Organization [facility] [place] [address] Care Team Providers Care Elevator Builder Name Role Phone Jeffery Asiarafaela Dunn DO Primary Care Provider +1- [phone] Encounter Details Date Type Department Care Team (Late st Contact Info) Description 12/30/2022 Orders Only Nephrology [place] [phone] Magdaleno Dia MD [facility] [address] Chronic kidney disease, unspecified CKD stage Social [...] 10:30 AM EDT Hospital [place] [phone] Bk Contreras MD [facility] [place] [address] 05/08/2024 10:30 AM EDT - 05/08/2024 11:00 AM EDT Surgery [place] [address] Bk Contreras MD [facility] [place] [address] INJECTION, ANESTHETIC AGENT AND/OR STEROID, TRANSFORAMINAL EPIDURAL, LUMBAR OR SACRAL, SINGLE LEVEL (WRVU 1.9) 05/12/2024 1:00 PM EDT Office [place] [address] Sadi Styles MD [facility] [place] [address] 05/29/2024 10:15 AM EDT TH Visit (TeleHealth) [facility] at [place] [phone] Natalee Sanchez APRN [facility] [place] [address] Scheduled Procedures Name Priority Associated Diagnoses Date/Ti me INJECTION, ANESTHETIC AGENT AND/OR STEROID, TRANSFORAMINAL EPIDURAL, LUMBAR OR SACRAL, SINGLE LEVEL (WRVU 1.9) Left lumbar radiculopathy 05/08/2024 10:30 AM EDT documented as of this encounter Results * Vitamin D, 25-Hydroxy (01/01/2023 10:34 AM EDT) 25-OH Vit D Total 22 21 - 100 ng/mL [facility] 25-OH Vit D Interp Insufficient [facility] Blood 01/01/2023 10:3 4 AM EDT 01/01/2023 10:39 AM EDT Narrative Resulting Agency Comment Spec In Lab Magdaleno Dia MD CHEMISTRY ORDERABLES [facility] [place] [address] * (ABNORMAL) PTH (01/01/2023 10:34 AM EDT) Pathologist [facility] PTH 112(H) 15 - 65 pg/mL [facility] Blood 01/01/2023 10:3 4 AM EDT 01/01/2023 10:39 AM EDT Narrative Resulting Agency Comment Spec In Lab Magdaleno Dia MD CHEMISTRY ORDERABLES Performing Organization Address [facility] Hospital/ZIP Co de Phone Number [facility] [place] [address] * Phosphorus (01/01/2023 10:34 AM EDT) [facility] Phosphorus 3.4 2.5 - 4.5 mg/dL [facility] Blood 01/01/2023 10:3 4 AM EDT 01/01/2023 10:39 AM EDT Narrative Resulting Agency Comment Spec In Lab Magdaleno Dia MD CHEMISTRY ORDERABLES Performing Organization Address City/[facility] Hospital/ZIP Co de Phone Number [facility] [place] [address] * (ABNORMAL) Basic Metabolic Panel (non-fasting) (01/01/2023 10:34 AM EDT) [facility] Glucose Lvl 175 65 - 199 mg/dL [facility] Comment:Diabetes: >=200 mg/d L plus symptoms BUN 38(H) 8 - 18 mg/dL [facility] Creatinine 1.55(H) 0.70 - 1.20 mg/dL [facility] Sodium 141 135 - 145 mmol/L [facility] Potassium 4.6 3.5 - 5.0 mmol/L [facility] Comment: Please note: ??Patients with WBC >100,000 may have falsely elevated Potassium levels. ??For accurate Potassium quantification in these patients send serum separator tube (gold top) for subsequent determinations. ??Contact the Clinical Chemistry Laboratory if there are any questions. Chloride 103 98 - 107 mmol/L [facility] CO2 26 22 - 31 mmol/L [facility] Anion Gap 12 5 - 15 mmol/L [facility] Calcium 10.1 8.5 - 10.5 mg/dL [facility] Estimated GFR 36(L) >=60 mL/min/1. 73 m?? [facility] Comment: This patient's estimated GFR was [...] In Lab Magdaleno Dia MD CHEMISTRY ORDERABLES [facility] [place] [address] documented in this encounter Visit Diagnoses Diagnosis Chronic kidney disease, unspecified CKD stage Left lumbar radiculopathy Thoracic or lumbosacral neuritis or radiculitis, unspecified documented in this encounter Care Teams Elevator Builder Relationship Specialty Start Date End Date Asia Gil DO [address] [place] [id number] PCP - General Family Medicine 07/09/20 documented as of this encounter
--- OUTSIDE RECORDS SUMMARY | 2024-05-02 12:06 | XMS_ITS | Encounter Summary ---
[place] [address] Care Team Providers Care Shipping Clerk/Admin Name Role Phone Asia Gil DO Primary Care Provider [phone]- [phone] Reason for Visit * Auth/Cert (Routine) Specialty [...] ENDOSCOPIC ULTRASOUND (WRVU 3.47) Jordan Dowling MD [facility] DR [place] [address] [facility] Referral ID Status Reason Start Date Expiration Date Visits Re quested Visits Authorized [id number] 1 1 Encounter Details Date Type Department Care Team (Latest Contact Info) Description 01/18/2023 1:06 PM EDT - 01/18/2023 5:16 PM EDT Hospital Encounter [place] [phone] Jordan Dowling MD [facility] [place] [address] Discharge Disposition: Home Social History Tobacco Use [...] Sign Reading Time Taken Comments Blood Pressure 118/67 01/18/2023 4:40 PM EDT Pulse 74 01/18/2023 2:05 PM EDT Temperature 36.8 ??C (98.2 ??F) 01/18/2023 2:05 PM ED T Respiratory Rate 18 01/18/2023 4:40 PM EDT Oxygen Saturation 99% 01/18/2023 4:40 PM EDT Inhaled Oxygen Concentration - - [...] the day after the procedure, use an yoxv-rzw-nngtuau spray to numb your throat. Sucking on [...] occurs, please contact your Doctor. Please call [phone] before 8pm Mon-Fri with problems, questions or concerns. If you call after 8pm or on weekends, call the Hospital at [phone] and ask to speak to the [employer] store consultant and the moisture meter operator will contact that person for you. [...] any problems. Where can you learn more? [facility] View your After Visit Summary and more online at [email or web address] If you would like to provide feedback about your hospital experience, please call the Office of Patient and Family Relations at . If you have received this After Visit Summary in error, please immediately return it in person to the department, or notify the [facility] Privacy Office by calling toll free at between the hours of 8AM and 5PM to arrange for our retrieval of the documents at no cost to you. Content Version: 12.2 ?? 9740-4221 [employer]. Care instructions adapted under license by [facility]. If you have questions about a medical condition or this instruction, always ask your healthcare professional. [employer] disclaims any warranty or liability for your [...] the day after the procedure, use an yhgd-jxy-fzdjbji spray to numb your throat. Sucking on [...] occurs, please contact your Doctor. Please call [phone] before 8pm Mon-Fri with problems, questions or concerns. If you call after 8pm or on weekends, call the Hospital at [phone] and ask to speak to the [employer] store consultant and the moisture meter operator will contact that person for you. [...] any problems. Where can you learn more? [facility] View your After Visit Summary and more online at [email or web address] If you would like to provide feedback about your hospital experience, please call the Office of Patient and Family Relations at . If you have received this After Visit Summary in error, please immediately return it in person to the department, or notify the [facility] Privacy Office by calling toll free at between the hours of 8AM and 5PM to arrange for our retrieval of the documents at no cost to you. Content Version: 12.2 ?? [phone] [employer]. Care instructions adapted under license by [facility]. If you have questions about a medical condition or this instruction, always ask your healthcare professional. [employer] disclaims any warranty or liability for your [...] pen 11 Units. 04/23/2021 OneTouch Ultra2 Meter Mis USE DIRECTED TO TEST BLOOD GLUCOSE 03/25/2021 [...] fluid collection with possible abscess K85.90 ??? Kykwl-eo-rjxpqae kidney injury N17.9, N18.9 ??? Anemia of [...] 10:30 AM EDT Hospital Encounter Pain Management [place] [phone] Bk Contreras MD [facility] [place] [address] 05/08/2024 10:30 AM EDT - 05/08/2024 11:00 AM EDT [place] [phone] Bk Contreras MD [facility] [place] [address] INJECTION, ANESTHETIC AGENT AND/OR STEROID, TRANSFORAMINAL EPIDURAL, LUMBAR OR SACRAL, SINGLE LEVEL (WRVU 1.9) 05/12/2024 1:00 PM EDT Office Visit Cardiology at [address] [phone] Sadi Styles MD [facility] CARDIOLOGY [place], [place] [phone] 05/29/2024 10:15 AM EDT TH Visit (TeleHealth) [facility] [place] [phone] Natalee Sanchez, [employer] [facility] [place] [address] Scheduled Procedures Name Priority Associated Diagnoses Date/Ti [...] EDT Up Gi Endoscopy, Remv Tumor, Snare ([id number]) 01/18/2023 3:34 PM EDT RUQ pain Dysphagia, unspecified type Regurgitation of food Constipation, unspecified constipation type Upper Gi Endoscopy, Biopsy ([id number]) 01/18/2023 3:34 PM EDT RUQ pain Dysphagia, unspecified type Regurgitation of food Constipation, unspecified constipation type Endoscopic Us Exam, Esoph ([id number]) 01/18/2023 3:34 PM EDT RUQ pain Dysphagia, unspecified type Regurgitation of food Constipation, unspecified constipation type POCT GLUCOSE Routine 01/18/2023 2:20 PM EDT documented in this encounter Results * Surgical Pathology Report (01/18/2023 3:53 PM EDT) FINAL DIAGNOSIS (AP) [id number] ? Location: 4T; EA13; A The signing [...] of fundic gland polyp. Electronically signed by: ?Ramón Phillip MD Verified: ??02/05/2023 15:08 ??Pathologist Performed at: ??-[facility] Dept. of Pathology, [place] [address] Outside Machinist: Sharlene Castellano MD, FCAP, ??CLIA Certificate: [id number] SPECIMEN(S) SUBMITTED A - random gastric biopsies, [...] labeled D1. ??sdy 02/05/2023 3:08 PM EDT [facility] 01/18/2023 3:53 PM EDT Jarod Lopez MD PATHOLOGY/CYTOLOGY O MAUREEN Performing Organization Address [facility]/[place] [address] * Specimen to Pathology (01/18/2023 3:53 PM EDT) AP Specimen 01/18/2023 3:53 PM EDT 01/18/2023 3:53 PM EDT Narrative [facility] - 01/18/2023 3:53 PM EDT Specimen requisition ordered. ??Separate Pathology report to follow Jordan Dowling MD PATHOLOGY/CYTOLOGY O MAUREEN Performing Organization Address [facility]/ZIP Co de Phone Number [facility] [place] [address] * Specimen to Pathology (01/18/2023 3:53 PM EDT) AP Specimen 01/18/2023 3:53 PM EDT 01/18/2023 3:53 PM EDT Narrative [facility] - 01/18/2023 3:53 PM EDT Specimen requisition ordered. ??Separate Pathology report to follow Jordan Dowling MD PATHOLOGY/CYTOLOGY O MAUREEN Performing Organization Address [facility]/ZIP Co de Phone Number [facility] [place] [address] * Specimen to Pathology (01/18/2023 3:53 PM EDT) AP Specimen 01/18/2023 3:53 PM EDT 01/18/2023 3:53 PM EDT Narrative [facility] - 01/18/2023 3:53 PM EDT Specimen requisition ordered. ??Separate Pathology report to follow Jordan Dowling MD PATHOLOGY/CYTOLOGY O MAUREEN Performing Organization Address [facility] [place] [address] * Specimen to Pathology (01/18/2023 3:53 PM EDT) AP Specimen 01/18/2023 3:53 PM EDT 01/18/2023 3:53 PM EDT Narrative [facility] - 01/18/2023 3:53 PM EDT Specimen requisition ordered. ??Separate Pathology report to follow Jordan Dowling MD PATHOLOGY/CYTOLOGY O MAUREEN Performing Organization Address [facility] [place] [address] * UPPER EUS-ENDOSCOPIC ULTRASOUND (01/18/2023 3:39 PM EDT) UPPER ENDOSCOPIC ULTRASOUND [facility] Endoscopy Procedure Date: 01/18/2023 3:39 PM ? Patient Name: Toyin Coley ? Date of : 1955 ? Age: 67 ? Order #: [id number] ? Instrument Name: [id number] ? Procedure: ? Upper EUS Indications: ? [...] Procedure Code(s): ? --- Professional --- ? 98688, Esophagogastroduodenos copy, ? flexible, transoral; with ? endoscopic ultrasound examination, ? including the esophagus, stomach, ? and either the duodenum or a ? surgically altered stomach where ? the jejunum is examined distal to ? the anastomosis ? 01768, Esophagogastroduodenos copy, ? flexible, transoral; with biopsy, ? single or multiple Diagnosis Code(s): ? --- Professional --- ? K80.20, Calculus of gallbladder ? without cholecystitis without ? obstruction ? R13.10, Dysphagia, unspecified ? R11.10, Vomiting, unspecified ? --- Technical --- ? K80.20, Calculus of gallbladder ? without cholecystitis without ? obstruction ? R13.10, Dysphagia, unspecified ? R11.10, Vomiting, unspecified CPT copyright 2020 [employer]. All rights reserved. The codes documented in this report are preliminary and upon label coder review may be revised to meet current [...] POC Glucose 123 65 - 199 mg/dL [facility] Comment: Supplemental ranges: <140 mg/dL before meals <180 mg/dL all other times of the day Blood 01/18/2023 2:20 PM EDT 01/18/2023 2:20 PM EDT Jordan Dowling MD POINT OF [place] [address] documented in this encounter Visit Diagnoses Not on filedocumented in this encounter Administered Medications Inactive Administered [...] 1430 (New Bag - Prov ider: Kay Bartholomew RN) documented in this encounter Care Teams Shipping Clerk/Admin Relationship Specialty Start Date End Date Asia Gil DO [address] [place] [address] PCP - General Family Medicine 07/09/20 documented as of this encounter
--- OUTSIDE RECORDS SUMMARY | 2024-05-02 12:06 | XMS_ITS | Encounter Summary ---
Author Organization [facility] [place] [address] Care Team Providers Care Side Seam Tender Name Role Phone Asia Gil DO Primary Care Provider +1- [phone] Encounter Details Date Type Department Care Team (Late st Contact Info) Description 04/23/2022 Telephone Cardiology at [address] [phone] Bernardo Santos, RN Social History Tobacco Use [...] Telephone Encounter - Bernardo Santos, RN - 04/23/2022 1:[address] Cruz's request and his advocacy on behalf of Ms. Coley. Call placed to Dr. Asia Gil's office ([facility] Internal Medicine). Pleasant connection with her Nurse, Lucrecia Brumfield. Reviewed concerns as noted in Dr. Cruz's note. Confirms patient followed there, well known and well appreciated; last seen April 02, 2022. ConfirmsGabapentin dosing reduced by their office for concerns of renal function. Advocated for follow up for leg pain; discussed previous findings by [facility] Vascular. Discussed possible referral to Neurology.Faxed copy of note today - to be hand carried to Dr. Gil for her expert review. Fax confirmation receipt noted. Chase Santos RNpoultry service technician Team Nurse [facility] Ambulatory Cardiology * Telephone Encounter - Bernardo Santos RN - 04/23/2022 1:12 PM EDT ----- Message from Antonio Cruz MD sent at 04/23/2022 12:14 PM EDT ----- Regarding: Severe neuropathy Hi Chase, About 3 weeks ago Toyin's gabapentin was reduced for concerns of renal [...] do well. Her main complaint today is legpain. She has both PVD and neuropathy and follows with vascular. Recent ABIs were performed which noted mild occlusive disease. Can you please help reach her PCP for her severe neuropathy and alternative treatments? Much appreciated. Thanks! Antonio Cruz MD documented in this encounter Plan of Treatment Upcoming Encounters Date Type Department Care Team (Latest Contact Info) Description 05/08/2024 10:30 AM EDT Hospital Encounter [place] [phone] Bk Contreras MD [facility] [place] [address] 05/08/2024 10:30 AM EDT - 05/08/2024 11:00 AM EDT Surgery Pain [place] [phone] Bk Contreras MD [facility] [place] [address] INJECTION, ANESTHETIC AGENT AND/OR STEROID, TRANSFORAMINAL EPIDURAL, LUMBAR OR SACRAL, SINGLE LEVEL (WRVU 1.9) 05/12/2024 1:00 PM EDT [place] [phone] Sadi Styles MD [facility] [place] [address] 05/29/2024 10:15 AM EDT TH Visit (TeleHealth) [place] [phone] Natalee Sanchez, [facility] [place] [address] Scheduled Procedures Name Priority Associated Diagnoses Date/Ti me INJECTION, ANESTHETIC AGENT AND/OR STEROID, TRANSFORAMINAL EPIDURAL, LUMBAR OR SACRAL, SINGLE LEVEL (WRVU 1.9) Left lumbar radiculopathy 05/08/2024 10:30 AM EDT documented as of this encounter Visit Diagnoses Not on filedocumented in this encounter Care Teams Side Seam Tender Relationship Specialty Start Date End Date Asia Gil DO [address] [place] [address] PCP - General Family Medicine 07/09/20 documented as of this encounter
--- OUTSIDE RECORDS SUMMARY | 2024-05-02 12:06 | XMS_ITS | Encounter Summary ---
[place] [address] Care Team Providers Care Recreation Superintendent Name Role Phone Asia Gil DO Primary Care Provider [phone]- [phone] Reason for Visit * Auth/Cert (Routine) Specialty [...] ENDOSCOPIC ULTRASOUND (WRVU 3.47) Jordan Dowling MD [facility] [place] [address] [facility] Referral ID Status Reason Start Date Expiration Date Visits Re quested Visits Authorized [id number] 1 1 Encounter Details Date Type Department Care Team (Late st Contact Info) Description 01/18/2023 3:32 PM EDT Anesthesia [place] [phone] Stacy Oscar MD [facility] [place] [address] Anesthesia Record Procedure Summary Procedure Name Responsible Anesthesiologist Anesthesia Start Time Anesthesia Stop Time UPPER EUS- ENDOSCOPIC ULTRASOUND (WRVU 3.47) (Trunk) Stacy Oscar MD 01/18/23 1532 01/18/23 1607 Events Date Time Event Comment 01/18/2023 1338 1531 AN Verify 1532 Start 1532 An Start Data 1534 An Induction 1535 Anesthesia Ready 1539 Procedure Start 1551 Handoff Intra-procedure anesthesia care was transferred after review of the patient's history, current anesthetic/surgical status and procedural plan, anticipated issues and expected post-operative course (including disposition.) Eloisa Willoughby CRNA 1607 an stop data 1607 Recovery or ICU Handoff Char ent care was transferred to the destination unit staff after review of the patient's medical history, current anesthetic/surgical status and plan, according to the Provider Handoff Checklist. 1607 Stop Meds Name Total Propofol 130 mg Propofol INF 364.72 mg Lactated Ringers 1,000 mL * Agents Name O2 Air N2O O2 Auxiliary Flowmeter 1 * Blood No blood administrations on file. Lines, Drains, and Airways Type Details Placement Removal (RETIRED) Peripheral IV Line - Single Lumen 01/18/23; 142; dorsal arch vein (top of hand), right; wwyo-ghj-ddiopl catheter system; Anatomical Landmarks; 22 gauge; RODERICK Villanueva; distraction; 01/18/23; 1649 01/18/23 1423 by Kay Bartholomew RN 01/18/23 164 by Yves Pena RN documented in this encounter Social History Tobacco Use Types Packs/Day Years [...] on file documented as of this encounter OR Notes * Anesthesia Postprocedure Evaluation - Stacy Oscar MD - 01/18/2023 4:37 PM EDT Department of Anesthesiology Post-procedure Note Patient: Toyin Coley Procedure Summary Date: 01/18/23 Room / Location: [facility] ENDO 2 / [facility] ENDOSCOPY Anesthesia Start: 1532 Anesthesia Stop: 1607 Procedures: UPPER EUS- ENDOSCOPIC ULTRASOUND (WRVU 3.47) (Trunk) EGD WITH BIOPSY (WRVU 2.39) EGD, W REMOVAL TUMOR/POLYPS/LESIONS BY SNARE TECHNIQUE (WRVU 3.47) Diagnosis: RUQ pain Dysphagia, unspecified type Regurgitation of food Constipation, unspecified constipation type (dysphagia, regurgitation, continued intermittent RUQ pain with history of retained stone (althoughmost recent MRI negative for stones per patient), possible dilation of esophagus if appropriate. Please obtain bx to r/o H. Pylori, EOE) Surgeons: Jordan Dowling MD Responsible Provider: Stacy Oscar MD Anesthesia Type: MAC ASA Status: 2 All Anesthesia Providers: Anesthesiologist: Stacy Oscar MD SCHEDULE ANNOUNCER: Eloisa Willoughby CRNA; Jennifer Guthrie CRNA Vitals Value Taken Time BP 114/59 01/18/23 1630 Temp Pulse Resp 16 01/18/23 1610 SpO2 99 % 01/18/23 1636 Pain Level 0 01/18/23 1610 Vitals shown include unvalidated device data. Patient Location: PACU/[facility] Level of Consciousness: Awake and Alert Pain Management: Satisfactory Analgesia PONV: None Cardiovascular Status: Hemodynamically Stable Respiratory Status: Stable Respiratory Status and Supplemental O2 (NC or FM) Postoperative Fluid Status: Intravascular EUvolemia Possible Anesthetic Complications: NONE apparent at time of evaluation Final Primary Anesthesia Type: General (The anesthetic type performed was the same as planned.) Comments: Stacy Oscar MD * Anesthesia Preprocedure Evaluation - Stacy Oscar MD - 01/17/2023 7:39 PM EDT Pre-Anesthesia Evaluation for: Toyin Coley a 67 y.o. female. Procedure(s): UPPER EUS- ENDOSCOPIC ULTRASOUND (WRVU 3.47) Patient Active Problem List Diagnosis Date Noted ??? Abdominal pain 11/25/2022 ??? Acute kidney injury 11/25/2022 ??? Acute pulmonary edema 11/25/2022 ??? Chronic pain disorder 11/25/2022 ??? COVID-19 ruled out 11/25/2022 ??? Depression 11/25/2022 ??? Elevated troponin I level 11/25/2022 ??? Generalized edema 11/25/2022 ??? Hypoxemia 11/25/2022 ??? Iron deficiency 11/25/2022 ??? Iron deficiency anemia 11/25/2022 ??? Leukocytosis 11/25/2022 ??? Liver cirrhosis secondary to nonalcoholic steatohepatitis (SIMMONS) 11/25/2022 ??? Neuropathy 11/25/2022 ??? Obstructive sleep apnea 11/25/2022 ??? Pain in both feet 11/25/2022 ??? Pulmonary atelectasis 11/25/2022 ??? Restlessness and agitation 11/25/2022 ??? Retained stone fragments 11/25/2022 ??? Retroperitoneal abscess 11/25/2022 ??? Shortness of breath 11/25/2022 ??? Stage 3b chronic kidney disease 11/25/2022 ??? Stressful life event affecting family 11/25/2022 ??? Tachycardia 11/25/2022 ??? PVD (peripheral vascular disease) with claudication 09/05/2021 ??? Moderate mitral stenosis 09/05/2021 ??? Unstable angina 05/13/2021 ??? Pancreatic fluid collection with possible abscess 02/21/2021 ??? Obsoe-ny-xczhwbg kidney injury 02/21/2021 ??? Anemia of chronic disease 02/21/2021 ??? Acute blood loss anemia 02/21/2021 ??? Pancreatitis 02/19/2021 ??? Acute exacerbation of congestive heart failure 02/06/2021 ??? HFrEF (heart failure with reduced ejection fraction) 02/06/2021 ??? ASCVD (arteriosclerotic cardiovascular disease) 02/04/2021 ??? Pancreatic pseudocyst 02/02/2021 ??? PONV (postoperative nausea and vomiting) 01/17/2021 ??? History of endoscopic retrograde cholangiopancreatography 01/09/2021 ??? Cystic duct calculus 12/27/2020 ??? RUQ pain 12/27/2020 ??? Anxiety 04/13/2020 ??? Diabetic neuropathy 04/13/2020 ??? Nonalcoholic steatohepatitis 04/13/2020 ??? Restless legs syndrome (RLS) 04/05/2020 ??? CKD (chronic kidney disease) 04/05/2020 ??? Delirium 04/05/2020 ??? Hyperlipidemia 05/28/2014 ??? Hypertension 05/28/2014 ??? Diabetes mellitus type 2, uncomplicated 05/14/2014 ??? Hx-TIA (transient ischemic attack) 05/14/2014 ??? GERD (gastroesophageal reflux disease) 05/22/2011 ??? Environmental allergies 05/22/2011 Past Medical History: Diagnosis Date ??? CKD [...] Guided Drain Pancreatic/Peripancreatic 02/20/2021 Mauro Thomas, DO [facility] RAD CAT SCAN ??? IR DRAIN CHECK/CHANGE/REMOVE 03/13/2021 IR Drain Check/Change/Remove 03/13/2021 Chris Jamil MD [facility] INTERVENTIONL RAD ??? PRO ERCP,DIAGNOSTIC N/A 01/17/2021 ERCP performed by Eliel Leigh MD at [facility] ENDOSCOPY Social History Tobacco Use ??? Smoking status: Never ??? Smokeless tobacco: Never ??? Tobacco comments: uses [facility] Substance Use Topics ??? Alcohol use: Not Currently Comment: 12 years ago Social History Substance and Sexual Activity Drug Use Yes ??? Frequency: 7.0 times per week ??? Types: Marijuana Allergies Allergen Reactions ??? Benzodiazepines Other (See Comments) Paradoxical reaction to benzodiazepines ??? House Dust ??? Hydrocodone-Acetaminophen Itching ??? Metoclopramide ??? Mold Extracts ??? Pollen Extracts ??? Propoxyphene Hcl Nausea And Vomiting ??? Unknown [Unclassified Drug] Most environmental allergies: grass, workman, trees,pollen Medications: MAR and/or home medications have been reviewed. Physical Exam: Preprocedure Vitals Current as of 01/17/231938 No BP, pulse, respiration, SpO2, or temperature recorded. Height: Weight: BMI: IBW: Airway Assessment: Mallampati: II TM distance: >3 FB Neck ROM: full Narrow mouth Cardiovascular Assessment: Rhythm: regular Rate: normal (+) murmur Pulmonary Assessment: breath sounds clear to auscultation Dental Assessment: Comment: Multiple chipped teeth Misc Assessment: IV access: Peripheral line Last Filed Perioperative Cognitive Screening None Anesthesia Plan: ASA 2 MAC, with a(n) intravenous induction Toyin Coley is a 67 y.o. patient presenting for upper endoscopy and EUS for RUQ pain and dysphagia PMHx: HFrEF (now improved), moderate mitral stenosis, possible dilation of esophagus on CT, GERD (gastroesophageal reflux disease), NIDDM2, history of TIA, HTN, SIMMONS, PONV, KINGSLEY, stage 3B chronic kidney disease TTE:1. Limited study for ventricular function. 2. The [...] reported wall motion abnormalities are no longer Present. Previous echo: LVEF 40% with moderate MS. The mitral valve leaflets are mildly thickened. Mild mitral leaflet calcification is visualized. There is moderate mitral stenosis present. The mean gradient across the mitral valve is 12 mmHg (HR= 108bpm). The mitral valve area is calculated at 1.4 cm2. by continuity equation. Adequate functional status, no active GERD, NPO status confirmed. Plan: MAC with backup GA. The patient was informed of the risks, benefits and alternatives of anesthesia. These risks included, but were not limited to, major aspiration event, post- operative nausea and/or vomiting, pain, sore throat, dental/lip injury, and other rare but serious complications such as cardiac instability/arrest, neurologic event, awareness, severe allergic reactions, position-related nerve injuries, and need blood transfusions. All questions sought and answered. Region - Other Informed Consent: Anesthetic plan and risks discussed with patient. Use of blood products discussed with patient who consented to blood products. Plan discussed with attending. Anesthesia Screening documented in this encounter Plan of Treatment Upcoming Encounters Date Type Department Care Team (Latest Contact Info) Description 05/08/2024 10:30 AM EDT Hospital En[place] [phone] Bk Contreras MD [facility] [address] 05/08/2024 10:30 AM EDT - 05/08/2024 11:00 AM EDT [place] [phone] Bk Contreras MD [facility] [place] [address] INJECTION, ANESTHETIC AGENT AND/OR STEROID, TRANSFORAMINAL EPIDURAL, LUMBAR OR SACRAL, SINGLE LEVEL (WRVU 1.9) 05/12/2024 1:00 PM EDT Office Visit Cardiology at [address] [phone] Sadi Styles MD [facility] [place] [address] 05/29/2024 10:15 AM EDT TH Visit (TeleHealth) [facility] [place] [phone] Natalee Sanchez, PSYCHIATRIC THERAPIST [facility] [place] [address] Scheduled Procedures Name Priority Associated Diagnoses Date/Ti [...] Date Dose Rate Site lactated ringers infusion Intravenous, CONTINUOUS PRN, Starting on Wed01/18/23 at 1531, Until Wed01/18/23 at 1607, Anesthesia Intra-op New Bag 01/18/2023 3:37 PM EDT New Bag 01/18/2023 3:31 PM EDT propofoL (Diprivan) (10 mg/mL) infusion Intravenous, CONTINUOUS PRN, Starting on Wed01/18/23 at 1534, Until Wed01/18/23 at 1607, Anesthesia Intra-op, Routine Rate/Dose Change 01/18/2023 3:41 PM EDT 150 mcg/kg/min 69.84 mL/hr New Bag 01/18/2023 3:34 PM EDT 200 mcg/kg/min 93.12 mL/ hr propofoL (Diprivan) 10 mg/mL bolus injection (Anesthesia) Intravenous, PRN, Starting on Wed01/18/23 at 1534, Until Wed01/18/23 at 1607, Anesthesia Intra-op Given 01/18/2023 3:46 PM EDT 30 mg Given 01/18/2023 3:38 PM EDT 50 mg Given 01/18/2023 3:34 PM EDT 50 mg documented in this encounter Care Teams Recreation Superintendent Relationship Specialty Start Date End Date Asia Gil DO [address] [place] [address] PCP - General Family Medicine 07/09/20 documented as of this encounter
--- OUTSIDE RECORDS SUMMARY | 2024-05-02 12:06 | XMS_ITS | Encounter Summary ---
Author Organization [facility] [place] [address] Care Team Providers Care Installer Technician Name Role Phone Asia Gil DO Primary Care Provider [phone]- [phone] Reason for Visit * Consultation (Urgent) - Closed Specialty Diagnoses / Procedures Referred By Leonel chin Referred To Contact Cardiology Diagnoses Heart failure, unspecified HF chronicity, unspecified heart failure type Atherosclerosis of [place] coronary artery of [place] heart without angina pectoris Nonrheumatic aortic valve stenosis Chronic kidney disease, stage IV (severe) Anemia, unspecified type ECHO & CONSULT post-stent, pt not feeling well. ?echo or vasc eval warranted? (last seen 04/23/22-Nancy) Asia Gil DO [address] [place] [address] Antonio Cruz MD [facility] [place] [address] Referral ID Status Reason Start Date Expiration Date V isits Requested Visits Authorized [id number] Closed Consult, Test & Treat 11/10/2022 11/10/2023 6 6 Encounter Details Date Type Department Care Team (Latest Contact Info) Description 11/19/2022 4:20 PM EST Office Visit Cardiology at [address] [phone] Antonio Cruz MD [facility] [place] [address] Hx-TIA (transient ischemic attack); Hyperlipidemia, unspecified hyperlipidemia type; Hypertension, unspecified type; HFrEF (heart failure with reduced ejection fraction); ASCVD (arteriosclerotic cardiovascular disease) Social History Tobacco [...] as of this encounter Progress Notes * Antonio Cruz MD - 11/19/2022 4:20 PM EST Images from the original note were not included. Formerly [facility] [place] [phone] CARDIOLOGY OUTPATIENT CLINIC VISIT [facility] Toyin Leslie Coley 11/19/2022 Referring Providers: DO Jeffery Cano Irene B, DO [address] [place] [id number] CARDIAC-RELEVANT PROBLEM LIST: 1. HFrEF (heart failure [...] 14. Pancreatic pseudocyst, Pancreatitis, Pancreatic abscess 15. Egdcm-kr-mhldpww kidney injury 16. Anemia of chronic disease 17. Acute blood loss anemia HISTORY OF PRESENT ILLNESS: Tyoin Coley is a 67 y.o. female patient presenting for an outpatient cardiology visit. Toyin Coley??is a 66 y.o.??female??with a medical history of SIMMONS cirrhosis (biopsy confirmed 2007), prior lap-ronnie, HTN, HLD, DMII c/b diabetic neuropathy, GERD, prior TIA, & CKD??III/A2-3,pancreatitis in February 2021, CHF February 2021 when she presented with shortness of breath found to have 40lb weight gain, lower extremity edema, bibasilar crackles, pulmonary vascular congestion, and abdominal wall anasarca consistent with volume overload. During that admission in February 2021, pro-BNP elevated and EF reduced on echo, consistent with CHF exacerbation. ??Troponin on admission was elevated to0.03, which remained flat on repeat lab. EKG showed T wave inversions which had been present in thepast, and she has denied chest pain throughout admission.??TTE revealed reduced EF with WMAs concerning for ischemia in the LAD distribution vs stress cardiomyopathy given apical kinesis demonstratedon Echo.??She underwent a left heart cath to [...] Her neuropathy was well controlled on gabapentin. Then her neuropathy got worse and she was in extreme pain and quite miserable at our last visit when she stated, I am miserable, I am in pain all the time. Her neuropathy medications were changed and since then her neuropathy is much better. From a cardiovascular perspective continues to do well. Her main complaint today is legpain. She has both PVD and neuropathy and follows with vascular. Recent ABIs were performed which noted only mild occlusive disease. Today she is seeking an appointment for elevated blood pressure. 2 weeks ago she developed left foot pain and was diagnosed with tendinitis. The pain was quite severe. At that time her blood pressurewas very high. She got concerned and set up this appointment. However her tendinitis pain has been treated effectively by her primary care physician. Since then her blood pressure has gone down. She is taking all her medications regularly. She read off of the blood pressure record which shows mostly well-controlled blood pressures and some as low as 100 over 70 mmHg. Echo this month showed an EF of 60% and mild . Echo Nov 2022: Interpretation Summary Left ventricle is of normal [...] across the mitral valve is 7 mmHg. ABIs 06/16/2021 Interpretation:?? RIGHT: Mild arterial occlusive [...] Guided Drain Pancreatic/Peripancreatic 02/20/2021 Mauro Thomas, DO [facility] RAD CAT SCAN ??? IR DRAIN CHECK/CHANGE/REMOVE 03/13/2021 IR Drain Check/Change/Remove 03/13/2021 Chris Jamil MD [facility] INTERVENTIONL RAD ??? PRO ERCP,DIAGNOSTIC N/A 01/17/2021 ERCP performed by Eliel Leigh MD at [facility] ENDOSCOPY SOCIAL HISTORY: reports that she has never smoked. She has never used smokeless tobacco. She reports that she does not currently use alcohol. She reports current drug use. Frequency: 7.00 times per week. Drug: Marijuana. FAMILY HISTORY: family history is not on file. MEDICATIONS: Current Outpatient Medications Medication Sig Dispense Refill ??? ezetimibe (Zetia) 10 mg Tablet Take 1 tablet by mouth daily. 30 tablet 12 ??? lisinopriL (Zestril) 5 mg Tablet Take [...] taking: No sig reported) 15 tablet 0 ??? polyethylene glycoL (Miralax) [...] 90 tablet 3 No current facility-administered medications for this visit. ALLERGIES: Reviewed and updated as appropriate in the medical record: Benzodiazepines, House dust, Hydrocodone-acetaminophen, Metoclopramide, Mold extracts, Pollen extracts, Propoxyphene hcl, and Unknown [unclassified drug] PHYSICAL EXAMINATION: Vitals: No data found. Constitutional: Normal general appearance, no distress Extremities: [...] 55 05/14/2021 LDLDIRECT 75 05/14/2021 ASSESSMENT/PLAN: Toyin Coley is a 67 y.o. female patient presenting for an outpatient cardiology visit for the following cardiovascular conditions: Hx-TIA (transient ischemic attack) Hyperlipidemia, unspecified hyperlipidemia type Hypertension, unspecified type HFrEF (heart failure with reduced ejection fraction) ASCVD (arteriosclerotic cardiovascular disease) 1. Coronary disease. Calcified severe 2 vessel [...] Her neuropathy was well controlled on gabapentin. From a cardio vascular perspective continues to do well. Her main complaint today is leg pain. She has both PVD and neuropathy and follows with vascular. Recent ABIs were performed which noted only mild occlusive disease. I advise she continue her phase 3 cardiac rehab program. I have advised her to reach her PCP for her severe neuropathy. Her lipids and LDL are still 97. I will continue Zetia 10 mg daily. 2. CHF, EF 40%, mod MS mild , valvular heart disease. She appears euvolemic today, no edema and symptoms of shortness of breath are improving. She shouldcontinue Torsemide 20 mg daily. We will repeat an echo next visit. 3. Diabetes. I advised strict control 4. CVD. Stable 5. CKD. We will check a repeat BMP 6. Hypertension. Today she is seeking an appointment for elevated blood pressure. 2 weeks ago she developed left foot pain and was diagnosed with tendinitis. The pain was quite severe. At that time her blood pressurewas very high. She got concerned and set up this appointment. However her tendinitis pain has been treated effectively by her primary care physician. Since then her blood pressure has gone down. She is taking all her medications regularly. She read off of the blood pressure record which shows mostly well-controlled blood pressures and some as low as 100 over 70 mmHg. Since her blood pressure is better controlled last week we will not make any changes today. I get the sense her blood pressure isquite impacted by her neuropathy and tendinitis pain. I advised her to keep a log of her blood pressure and we will review at next clinic visit. I advised her to come to our clinic within 2 to 3 months. We will schedule this appointment. Thank you for the opportunity to take care of Toyin Coley. Sincerely, Dr. Antonio Cruz MD [facility] Ribbon Sweatband Operator Interventional Cardiology 11/19/2022 CC: Asia Gil DO documented in this encounter Plan of Treatment Upcoming Encounters Date Type Department Care Team (Latest Contact Info) Description 05/08/2024 10:30 AM EDT Hospital Encounter [place] [phone] Bk Contreras MD [facility] [place] [address] 05/08/2024 10:30 AM EDT - 05/08/2024 11:00 AM EDT [place] [phone] Bk Contreras MD [facility] [place] [address] INJECTION, ANESTHETIC AGENT AND/OR STEROID, TRANSFORAMINAL EPIDURAL, LUMBAR OR SACRAL, SINGLE LEVEL (WRVU 1.9) 05/12/2024 1:00 PM EDT Office Visit Cardiology at [address] [phone] Sadi Styles MD [facility] [place] [address] 05/29/2024 10:15 AM EDT TH Visit (TeleHealth) [facility] [place] [phone] Natalee Sanchez, [facility] [place] [address] Scheduled Procedures Name Priority Associated Diagnoses Date/Ti me INJECTION, ANESTHETIC AGENT AND/OR STEROID, TRANSFORAMINAL EPIDURAL, LUMBAR OR SACRAL, SINGLE LEVEL (WRVU 1.9) Left lumbar radiculopathy 05/08/2024 10:30 AM EDT documented as of this encounter Visit Diagnoses Diagnosis Hx-TIA (transient ischemic attack) Transient ischemic attack (TIA), and cerebral infarction without residual deficits Hyperlipidemia, unspecified hyperlipidemia type Hypertension, unspecified type HFrEF (heart failure with reduced ejection fraction) ASCVD (arteriosclerotic cardiovascular disease) Unspecified cardiovascular disease Left lumbar radiculopathy Thoracic or lumbosacral neuritis or radiculitis, unspecified documented in this encounter Care Teams Installer Technician Relationship Specialty Start Date End Date Asia Gil DO [address] [facility] [place] [address] PCP - General Family Medicine 07/09/20 documented as of this encounter
--- OUTSIDE RECORDS SUMMARY | 2024-05-02 12:06 | XMS_ITS | Encounter Summary ---
Author Organization [facility] [place] [address] Care Team Providers Care Porcelain Mixer Name Role Phone Jeffery Asiarafaela Dunn DO Primary Care Provider [phone]- [phone] Encounter Details Date Type Department Care Team (Latest Contact Info) Description 12/25/2022 Travel Social History Tobacco Use Types Packs/Day [...] 10:30 AM EDT Hospital Encounter [place] [phone] Bk Contreras MD [facility] [place] [address] 05/08/2024 10:30 AM EDT - 05/08/2024 11:00 AM EDT [place] [phone] Bk Contreras MD [facility] [place] [address] INJECTION, ANESTHETIC AGENT AND/OR STEROID, TRANSFORAMINAL EPIDURAL, LUMBAR OR SACRAL, SINGLE LEVEL (WRVU 1.9) 05/12/2024 1:00 PM EDT Office Visit Cardiology at [address] [phone] Sadi Styles MD [facility] [place] [address] 05/29/2024 10:15 AM EDT TH Visit (TeleHealth) [place] [phone] Natalee Sanchez APRN [facility] [place] [address] Scheduled Procedures Name Priority Associated Diagnoses Date/Ti me INJECTION, ANESTHETIC AGENT AND/OR STEROID, TRANSFORAMINAL EPIDURAL, LUMBAR OR SACRAL, SINGLE LEVEL (WRVU 1.9) Left lumbar radiculopathy 05/08/2024 10:30 AM EDT documented as of this encounter Visit Diagnoses Not on filedocumented in this encounter Care Teams Porcelain Mixer Relationship Specialty Start Date End Date Asia Gil DO [address] [place] [address] PCP - General Family Medicine 07/09/20 documented as of this encounter
--- OUTSIDE RECORDS SUMMARY | 2024-05-02 12:07 | XMS_ITS | Encounter Summary ---
Author Organization [facility] [place] [address] Care Team Providers Care Account Executive Trainee Name Role Phone Asia Gil DO Primary Care Provider +1- [phone] Reason for Visit * Reason Onset Date Comments Leg Pain 05/28/2021 Encounter Details Date Type Department Care Team (Late st Contact Info) Description 05/28/2021 Telephone Cardiology at [address] [phone] Marian Calvin RN Leg Pain Social History Tobacco Use Types Packs/Day Years Used Date Smoking Tobacco: Never Smokeless Tobacco: Never Comments:uses medical yumiko nader Alcohol Use Standard Drinks/Week Comments Not Currently 0 (1 standard drink = 0.6 oz pur e alcohol) 10 years ago Sex and Gender Information Value Date Recorded Sex Assigned at Not on file Gender Identity Not on file Sexual Orientation Not on file documented as of this encounter Miscellaneous Notes * Telephone Encounter - Marian Calvin RN - 05/28/2021 4:48 PM EDT Vm from PCP reporting that patient was having severe leg pain- she reports doing borderline ADRY She questions if it could be claudication. She has tried gabapentin w/o relief she hesitates to prescribe opioids for Toyin. She wonders if ?saladactol? Would be okay and what ever testing may be appropriate at her appointment on 06-19-21. Chart reviewed Returned call. Updated on vascular consult and ABIs scheduled for 06-13-21 She wonders ciloscazole would be okay from a cardiac perspective. Marian Calvin RN 4A Cardiology documented in this encounter Plan of Treatment Upcoming Encounters Date Type Department Care Team (Latest Contact Info) Description 05/08/2024 10:30 AM EDT Hospital [place] [phone] Bk Contreras MD [facility] [place] [address] 05/08/2024 10:30 AM EDT - 05/08/2024 11:00 [place] [phone] Bk Contreras MD [facility] [place] [address] INJECTION, ANESTHETIC AGENT AND/OR STEROID, TRANSFORAMINAL EPIDURAL, LUMBAR OR SACRAL, SINGLE LEVEL (WRVU 1.9) 05/12/2024 1:00 PM EDT Office Visit Cardiology at [place] [phone] Sadi Styles MD [facility] [place] [address] 05/29/2024 10:15 AM EDT TH Visit (TeleHealth) [facility] [place] [phone] Natalee Sanchez APRN [facility] [place] [address] Scheduled Procedures Name Priority Associated Diagnoses Date/Ti me INJECTION, ANESTHETIC AGENT AND/OR STEROID, TRANSFORAMINAL EPIDURAL, LUMBAR OR SACRAL, SINGLE LEVEL (WRVU 1.9) Left lumbar radiculopathy 05/08/2024 10:30 AM EDT documented as of this encounter Visit Diagnoses Not on filedocumented in this encounter Care Teams Account Executive Trainee Relationship Specialty Start Date End Date Asia Gil DO [address] [place] [address] PCP - General Family Medicine 07/09/20 documented as of this encounter
--- OUTSIDE RECORDS SUMMARY | 2024-05-02 12:07 | XMS_ITS | Encounter Summary ---
[place] [address] Care Team Providers Care Defect Repairer Glassware Name Role Phone Asia Gil DO Primary Care Provider +1- [phone] Encounter Details Date Type Department Care Team (Late st Contact Info) Description 05/12/2021 External Results [place] [phone] Social History Tobacco Use Types Packs/Day Years Used Date Smoking Tobacco: Never Smokeless Tobacco: Never Comments:uses medical yumiko nader Alcohol Use Standard Drinks/Week Comments Not Currently 0 (1 standard drink = 0.6 oz pur e alcohol) Sex and Gender Information Value Date Recorded Sex Assigned at Not on file Gender Identity Not on file Sexual Orientation Not on file documented as of this encounter Plan of Treatment Upcoming Encounters Date Type Department Care Team (Latest Contact Info) Description 05/08/2024 10:30 AM EDT Hospital Encounter [place] [phone] Bk Contreras MD [facility] [place] [address] 05/08/2024 10:30 AM EDT - 05/08/2024 11:00 AM EDT Surgery [place] [phone] Bk Contreras MD [facility] [place] [address] INJECTION, ANESTHETIC AGENT AND/OR STEROID, TRANSFORAMINAL EPIDURAL, LUMBAR OR SACRAL, SINGLE LEVEL (WRVU 1.9) 05/12/2024 1:00 PM EDT Office Visit Cardiology at [place] [phone] Sadi Styles MD [facility] [place] [address] 05/29/2024 10:15 AM EDT TH Visit (TeleHealth) [facility] at [place] [phone] Natalee Sanchez APRN [facility] [address] Scheduled Procedures Name Priority Associated Diagnoses Date/Ti me INJECTION, ANESTHETIC AGENT AND/OR STEROID, TRANSFORAMINAL EPIDURAL, LUMBAR OR SACRAL, SINGLE LEVEL (WRVU 1.9) Left lumbar radiculopathy 05/08/2024 10:30 AM EDT documented as of this encounter Procedures Procedure Name Priority Date/Time Associated Diagnosis Comments ECG SCAN Routine 05/12/2021 documented in this encounter Results * Scan Doc: ECG (05/12/2021) Historical Provider MD [place] MGR SCAN EX T ORDR/RSLT documented in this encounter Visit Diagnoses Not on filedocumented in this encounter Care Teams Defect Repairer Glassware Relationship Specialty Start Date End Date Asia Gil DO [address] [place] [address] PCP - General Family Medicine 07/09/20 documented as of this encounter
--- OUTSIDE RECORDS SUMMARY | 2024-05-02 12:07 | XMS_ITS | Encounter Summary ---
[place] [address] Care Team Providers Care Hotel General Manager Name Role Phone Asia Gil DO Primary Care Provider +1- [phone] Encounter Details Date Type Department Care Team (Late st Contact Info) Description 09/15/2021 Telephone Cardiology at [address] [phone] Bernardo Santos, RN Social History Tobacco Use [...] Telephone Encounter - Bernardo Santos, RN - 09/15/2021 3:32 PM EST Images from the original note were not included. Antonio Cruz MD Shields, Thomas A, RN Chase, Reviewed the stress test. 7 METs, negative for ischemia, low Davis Treadmill Score. Continue med Rx. Antonio Appreciate Dr. Cruz's review of patient's recent Treadmill Stress, dated 09/01/2021 - sent for his review after scheduled follow up visit dated 09/09/2021. (This report was unavailable at the time ofthe visit). Call placed to Ms. Coley in follow up. Pleasant connection. Voiced appreciation for Dr. Cruz's diligence and his expert review today. Will proceed with her travel plans without delay or restriction(Her question was am I safe to travel by airplane?). Affirmed same, reassured. Chase Santos php mysql developer Team Nurse [facility] documented in this encounter Plan of Treatment Upcoming Encounters Date Type Department Care Team (Latest Contact Info) Description 05/08/2024 10:30 AM EDT Hospital Encounter Pain Management [place] [phone] Bk Contreras MD [facility] [place] [address] 05/08/2024 10:30 AM EDT - 05/08/2024 11:00 AM EDT [place] [phone] Bk Contreras MD [facility] [place] [address] INJECTION, ANESTHETIC AGENT AND/OR STEROID, TRANSFORAMINAL EPIDURAL, LUMBAR OR SACRAL, SINGLE LEVEL (WRVU 1.9) 05/12/2024 1:00 PM EDT Office Visit Cardiology at [place] [phone] Sadi Styles MD [facility] [address] 05/29/2024 10:15 AM EDT TH Visit (TeleHealth) [facility] at [place] [phone] Natalee Sanchez, SAIL MAKER [facility] [place], [place] [phone] Scheduled Procedures Name Priority Associated Diagnoses Date/Ti me INJECTION, ANESTHETIC AGENT AND/OR STEROID, TRANSFORAMINAL EPIDURAL, LUMBAR OR SACRAL, SINGLE LEVEL (WRVU 1.9) Left lumbar radiculopathy 05/08/2024 10:30 AM EDT documented as of this encounter Visit Diagnoses Not on filedocumented in this encounter Care Teams Hotel General Manager Relationship Specialty Start Date End Date Asia Gil DO [address] [place] [address] PCP - General Family Medicine 07/09/20 documented as of this encounter
--- OUTSIDE RECORDS SUMMARY | 2024-05-02 12:07 | XMS_ITS | Encounter Summary ---
[place] [address] Care Team Providers Care Exchange Engineer Name Role Phone Asia Gil DO Primary Care Provider [phone] Reason for Visit * Reason Comments Abnormal Labs From home for ED Encounter Details Date Type Department Care Team (Late st Contact Info) Description 12/11/2021 7:26 PM EST - 12/11/2021 10:54 PM EST [place] [address] Thanh Bae MD [facility] [place] [address] Hyperkalemia Discharge Disposition: Home Social History Tobacco Use [...] Sign Reading Time Taken Comments Blood Pressure 143/61 12/11/2021 4:54 PM EST Pulse 78 12/11/2021 4:54 PM EST Temperature 35.9 ??C (96.7 ??F) 12/11/2021 4:54 PM ES T Respiratory Rate 18 12/11/2021 4:54 PM EST Oxygen Saturation 98% 12/11/2021 4:54 PM EST Inhaled Oxygen Concentration - - Weight 77.3 kg (170 lb 6.7 oz) 12/11/2021 4:54 P M EST Height - - Body Mass Index 30.19 06/19/2021 9:26 AM EDT documented in this encounter Discharge Instructions * Discharge Instructions* Mary Solano MD - 12/11/2021 10:00 PM EST You were seen in the [facility] ED for hyperkalemia (high potassium). We found that your potassium level was 5.5. Your Creatinine was 1.7. We recommend repeating your potassium levels tomorrow with your primary care provider. We also recommend reaching out to tour Retirement Officer's office tomorrow. Please return to the ED if you develop palpitations, weakness, feel that you may pass out, or if you have any other concerns. * Attachments The following attachments cannot be sent through Care Everywhere. * Hyperkalemia ([place]) documented in this encounter Medications at Time [...] EC (Protonix) 40 mg Tablet, Delayed Release (E.C.)Indications:ABIMAEL D (gastroesophageal reflux disease) Take 1 tablet by mouth daily. 90 tablet 3 01/27/2021 lisinopriL (Zestril) 5 mg Tablet Take 1 tablet by mouth daily. 90 tablet 3 11/07/2021 11/25/2022 isosorbide mononitrate CR (Imdur) 30 mg Tablet Sustained Release 24 hr Take 1 tablet by mouth every morning. 30 tablet 12 05/16/2021 12/22/2023 lidocaine-prilocaine (EMLA) Cream Apply 30 Applications topically as needed. 03/31/2021 02/24/2022 BD Dionna 2nd Gen Pen Needle 32 gauge x 5/32 Needle USE WITH DAILY INSULIN 04/23/2021 01/18/2023 clopidogreL (Plavix) 75 mg Tablet Take 1 tablet by mouth daily. 90 tablet 3 02/14/2021 05/28/2022 magnesium oxide (Mag-Ox) 400 mg (241.3 mg magnesium) Tablet Take 1 tablet by mouth 2 times daily. 180 tablet 3 02/13/2021 12/18/2021 melatonin 3 mg Tablet Take 2 tablets by mouth nightly. 180 tablet 3 02/13/2021 12/22/2023 traZODone (Desyrel) 50 mg Tablet Take 0.5 tablets by mouth nightly. 45 tablet 3 02/13/2021 01/10/2024 oxyCODONE (Roxicodone) 5 mg Tablet Take 1 tablet by mouth every 8 hours as needed for Pain. 15 tablet 02/03/2021 12/22/2023 gabapentin (Neurontin) 100 mg Capsule Take 1 capsule by mouth Daily at Noon. 90 capsule 12 01/27/2021 12/18/2021 gabapentin (Neurontin) 100 mg Capsule Take 2 capsules by mouth 2 times daily. 90 capsule 12 01/27/2021 04/04/2024 gabapentin (Neurontin) 100 mg Capsule Take 2 capsules by mouth nightly as needed (sciatic leg pain). 90 capsule 12 01/27/2021 12/18/2021 atorvastatin (Lipitor) 40 mg Tablet Take 1 tablet by mouth every evening. 90 tablet 3 01/27/2021 12/22/[address] (Cymbalta) 30 mg Capsule, Delayed Release(E.C.) Take 1 capsule by mouth daily. 30 tablet 11 01/27/2021 01/18/2023 documented as of this encounter ED Notes * Mary Solano MD - 12/11/2021 8:45 PM EST ED Resident Note HPI: Toyin Coley is a 66 y.o. female w/ PMH s/f CKD stage III (baseline Cr ~1.6), HFrEF (EF 40%), CAD s/p stents who presents to the Emergency Department with hyperkalemia at the request of her primary care physician. Ms. Coley was recently vacationing in [place] when her routine labs returned demonstrating hyperkalemia and rising creatinine. She returned home from her vacation and was was seen in the [facility] ED yesterday. She was treated for hyperkalemia (unfortunately do not have records yet) with IV fluids and discharged home with plan for re-check of potassium today. Her potassium was checked at her PCP's office today in [facility], and she received a call this afternoon that she should present to the ED as her potassium levels were high. Ms. Coley is not sure what the numeric value of the potassium was, only that it was high. She denies medication changes, recent illness, dehydration, chest pain, shortness of breath, palpitations, lightheadedness, syncope, abdominal pain, nausea, vomiting, dysuria, hematuria. Pt was seen under the supervision of an attending physician. Review of Systems Pertinent positives and negatives are included in the HPI, otherwise at least ten systems were reviewed and negative. Past Medical and Surgical Histories, Social History, Medications, Allergies were reviewed in the chart. Vitals: ED Triage Vitals [12/11/21 1654] BP: 143/61 Heart Rate: 78 Resp: 18 Temp: 35.9 ??C (96.7 ??F) Temp src: Temporal SpO2: 98 % O2 Device: RA O2 Flow Rate (L/min): n/a Physical Exam Vitals and nursing note reviewed. Constitutional: General: She is not in acute distress. HENT: Head: Normocephalic. Eyes: Pupils: Pupils are equal, round, and reactive to light. Cardiovascular: Rate and Rhythm: Normal rate. Pulmonary: Effort: Pulmonary effort is normal. No respiratory distress. Abdominal: General: Abdomen is flat. Palpations: Abdomen is soft. Tenderness: There is no abdominal tenderness. Musculoskeletal: General: Normal range of motion. Cervical back: Normal range of motion and neck supple. Skin: General: Skin is warm and dry. Neurological: General: No focal deficit present. Mental Status: She is alert and oriented to person, place, and time. Mental status is at baseline. Psychiatric: Mood and Affect: Mood normal. Behavior: Behavior normal. ED Course: I have reviewed labs and imaging, images and available reports, and they are significant for: Labs Reviewed BASIC METABOLIC PANEL (NON-FASTING) - Abnormal; Notable for the following components: Result Value BUN 62 (*) Creatinine 1.71 (*) Potassium 5.5 (*) Estimated GFR 30 (*) All other components within normal limits HEMOGRAM - Abnormal; Notable for the following components: RBC 3.50 (*) Hemoglobin 10.9 (*) Hematocrit 33.8 (*) MCV 96.6 (*) All other components within normal limits CBC (WITH DIFF) DIFFERENTIAL, AUTOMATED URINALYSIS WITH REFLEX CULTURE SODIUM, URINE, RANDOM CREATININE, URINE, RANDOM CK CK POTASSIUM POCT GLUCOSE No orders to display ED Course as of 12/21/212034Dec 11, 20212033 Creatinine(!): 1.71 Mildly above recent values Assessment and Plan: Toyin Coley is a 66 y.o. female w/ PMH s/f CKD stage III (baseline Cr ~1.6), HFrEF (EF 40%), CAD s/p stents who presents to the Emergency Department with hyperkalemia at the request of her primary care physician. ECG by my interpretation sinus rhythm, no acute ischemic changes, no signs of changes correspondingwith hyperkalemia such as peaked T-waves or widened QRS complexes. As such, no need for IV calcium.Initial potassium 5.5, and patient was treated with IV fluids, insulin, and D10. After intracellular shifting of potassium, repeat was 4.3. BMP with elevated creatinine of 1.7, mildly increased from baseline of approximately 1.6. UA was without evidence of urinary tract infection. Discussed next steps with Ms. Coley and her daughter and comfort with admission for observation vs discharge with outpatient follow-up. She elected to go home and have repeat labs done tomorrow and will call her Neph rologist Dr. Dia to arrange for follow-up. The visit findings, diagnosis, and care plan were discussed with the patient. The diagnosis and care plans discussions were outlined in the discharge instructions. The patient expressed understanding of the details of the visit, the return precautions and that she should return to the ER at any time for worsening symptoms, new symptoms, or other concerns. she agrees with thefollow- up plan. Mary Solano MD Resident 12/21/212108 Associated attestation - Thanh Bae MD - 12/29/2021 1:13 PM EDT I was the supervising physician for this patient. I was present for the yi portions of the serviceprovided by the resident, independently evaluated and examined the patient, and participated in allaspects of their medical decision- making process during my shift. Please see my separate supervisory note for details of my independent evaluation and examination. * Soto Pugh RN - 12/11/2021 7:57 PM EST Bladder scan showed a maximum 39cc for post void * Thanh Bae MD - 12/11/2021 7:30 PM EST ED Attending Brief Note HPI: Toyin Coley is a 66 y.o. female who presents to the Emergency Department for evaluation for outpatient GETACHEW/HyperK, although she does not know what the specific laboratory numbers are. She had blood work performed upon returning from vacation, which demonstrated per report hyperkalemia and acutekidney injury. She was seen in an outside hospital ED for this yesterday, given intravenous fluid resuscitation, and discharged home with plan to recheck today. Recheck today again demonstrated hyperkalemia, and patient was referred to the ED. Patient states that she has been in her usual state of health, although feeling mildly fatigued which she attributed to being on vacation. She has had good oral intake, and no recent medication changes, with exception of taking turmeric and into the brand of one of her medications. She denies dysuria, hematuria, nausea, vomiting, abdominal pain. Review indicates chronic creatinine approximately 1.6. Review of Systems Pertinent positives and negatives are included in the HPI, otherwise at least ten systems were reviewed and negative. Past Medical and Surgical Histories, Social History, Medications, Allergies were reviewed in the chart. Vitals: ED Triage Vitals [12/11/21 1654] BP: 143/61 Heart Rate: 78 Resp: 18 Temp: 35.9 ??C (96.7 ??F) Temp src: Temporal SpO2: 98 % O2 Device: RA O2 Flow Rate (L/min): n/a Physical Exam NAD Anicteric/noninjected Mildly dry MM CTAB RRR no mgr appreciated Soft NABS No significant peripheral edema ED Course: DDx GETACHEW, hypovolemia, hyperK, UTI Plan: EKG per my review without peaked T waves, has 1st degree AVB, defer acute Ca treatment Exclude UTI, check U lytes for possible prerenal component, check PVR Given failed outpatient management, anticipate admission. Dr. Dia is entry manager. Addendum: very minimal lab abnormalities, renal function at baseline, given additional IVF and offered admission vs d/c home with close outpatient followup as she has already demonstrated excellent followup. Thanh Bae MD 12/11/212152 * Beau Miles PA - 12/11/2021 5:11 PM EST Brief Provider Triage Note Name: Toyin Coley : 1955 Date of Service: 12/11/2021 Chief Complaint: Abnormal Labs (From home for ED) History of Present Illness: 66 y.o. y/o female presents with concern for hyperkalemia and GETACHEW from [facility]. Had labs checked 3x with persistently elevated potassium. Patient is unsure of lab values. Vitals: BP 143/61 (Patient Position: Sitting) Pulse 78 Temp 35.9 ??C (96.7 ??F) (Temporal) Resp 18 Wt 77.3 kg (170 lb 6.7 oz) SpO2 98% BMI 30.19 kg/m?? No acute distress Plan: ekg Labs Outside records requested Re-examination Further diagnosis and management in ED COVID-19 precautions were used throughout this encounter. Beau Miles PA 12/11/21 1712 * Mamta Suarez MD - 12/11/2021 3:19 PM EST Coming for eval of K and worsening renal failure. Mamta Suarez MD 12/11/21 1521 documented in this encounter Miscellaneous Notes * ED Triage - Marian Mario RN - 12/11/2021 4:53 PM EST My potassium levels are not good. Have had recent blood work at OSH. My doctor told me to come. Denies SOB, CP, N/V/D, fevers/chills documented in this encounter Plan of Treatment Upcoming Encounters Date Type Department Care Team (Latest Contact Info) Description 05/08/2024 10:30 AM EDT Hospital En[place] [address] Bk Contreras MD [facility] [place] [address] 05/08/2024 10:30 AM EDT - 05/08/2024 11:00 AM EDT [place] [address] Bk Contreras MD [facility] [place] [address] INJECTION, ANESTHETIC AGENT AND/OR STEROID, TRANSFORAMINAL EPIDURAL, LUMBAR OR SACRAL, SINGLE LEVEL (WRVU 1.9) 05/12/2024 1:00 PM EDT Office Visit Cardiology at [address] [phone] Said Styles MD [facility] [place] [address] 05/29/2024 10:15 AM EDT TH Visit (TeleHealth) [facility] [place] [phone] Natalee Sanchez APRN [facility] [place] [address] Scheduled Procedures Name Priority Associated Diagnoses Date/Ti me INJECTION, ANESTHETIC AGENT AND/OR STEROID, TRANSFORAMINAL EPIDURAL, LUMBAR OR SACRAL, SINGLE LEVEL (WRVU 1.9) Left lumbar radiculopathy 05/08/2024 10:30 AM EDT documented as of this encounter Procedures Procedure Name Priority Date/Time Associated Diagnosis Comments HC POTASSIUM STAT 12/11/2021 10:22 PM EST POCT GLUCOSE Routine 12/11/2021 9:16 PM EST HC SODIUM, URINE STAT 12/11/2021 7:46 PM EST HC CREATININE - NON BLOOD STAT 12/11/2021 7:46 PM EST URINALYSIS WITH REFLEX CULTURE STAT 12/11/2021 7:46 PM EST HEMOGRAM STAT 12/11/2021 6:34 PM EST DIFFERENTIAL, AUTOMATED STAT 12/11/2021 6:34 PM EST HC CBC,PLT & AUTO DIFF STAT 12/11/2021 6:34 PM EST CK STAT 12/11/2021 6:34 PM EST BASIC METABOLIC PANEL (NON-FASTING) STAT 12/11/2021 6:34 PM EST EKG 12-LEAD STAT 12/11/2021 5:19 PM EST documented in this encounter Results * Potassium (12/11/2021 10:22 PM EST) Pathologist [facility] Potassium 4.3 3.5 - 5.0 mmol/L [facility] Comment: result rechecked-KS Please note: ??Patients with WBC >100,000 may have falsely elevated Potassium levels. ??For accurate Potassium quantification in these patients send serum separator tube (gold top) for subsequent determinations. ??Contact the Clinical Chemistry Laboratory if there are any questions. Blood 12/11/2021 10:2 2 PM EST 12/11/2021 10:36 PM EST Narrative Resulting Agency Comment Spec In Lab Thanh Bae MD CHEMISTRY ORDERABLES [facility] [place] [address] * POCT Glucose (12/11/2021 9:16 PM EST) Pathologist [facility] POC Glucose 87 65 - 199 mg/dL [facility] Comment: Supplemental ranges: <140 mg/dL before meals <180 mg/dL all other times of the day Blood 12/11/2021 9:16 PM EST 12/11/2021 9:16 PM EST Thanh Bae MD POINT OF CARE TEST O RDERABLES [facility] [place] [address] * Creatinine, urine, random (12/11/2021 7:46 PM EST) U Creatinine 23 mg/dL [facility] Urine 12/11/2021 7:46 PM EST 12/11/2021 7:56 PM EST Narrative Resulting Agency Comment Spec In Lab Thanh Bae MD URINE ORDERABLES Performing Organization Address City/[facility]/ZIP Co de Phone Number [facility] [place] [address] * Sodium, urine, random (12/11/2021 7:46 PM EST) U Sodium 65 mmol/L [facility] Urine 12/11/2021 7:46 PM EST 12/11/2021 7:56 PM EST Narrative Resulting Agency Comment Spec In Lab Thanh Bae MD URINE ORDERABLES Performing Organization Address [facility]/ZIP Co de Phone Number [facility] [place] [address] * Urinalysis with reflex Culture (12/11/2021 7:46 PM EST) Glucose UA Negative Negative mg/dL [facility] Protein UA Negative Negative mg/dL [facility] Bilirubin UA Negative Negative mg/dL [facility] Comment: Clinical correlation required for positive Urine Bilirubin results as false positive may occur with some drugs and drug related products. If a false positive is suspected a serum total bilirubin should be considered if clinically indicated. Urobilinogen UA Normal Normal mg/dL [facility] pH UA 7.5 5.0 - 8.0 [facility] Blood UA Negative Negative mg/dL [facility] Ketones UA Negative Negative mg/dL [facility] Nitrite UA Negative Negative [facility] Leukocytes UA Negative Negative [facility] Y [facility] Appearance UA Clear Clear [facility] Spec Eagle UA 1.009 1.005 - 1.030 [facility] Color UA Yellow Yellow [facility] Culture Reflexed No MAR Y [facility] Clean Catch Urine 12/11/2021 7:46 PM EST 12/11/2021 7:56 PM EST Narrative Resulting Agency Comment Spec In Lab Thanh Bae MD URINE ORDERABLES Performing Organization Address City/[facility]/ZIP Co de Phone Number [facility] [place] [address] * CK (12/11/2021 6:34 PM EST) Pathologist [facility] CK, Total 76 0 - 160 unit/L [facility] Blood Venous Draw / Unknown 12/11/2021 6:34 PM EST 12/11/2021 7:10 PM EST Narrative Resulting Agency Comment Spec In Lab Thanh Bae MD CHEMISTRY ORDERABLES Performing Organization Address City/[facility]/ZIP Co de Phone Number [facility] [place] [address] * Differential, Automated (12/11/2021 6:34 PM EST) [facility] Neutrophils % 44.4 % [facility] Neutr Abs (ANC) 2.83 1.70 - 6.10 x10(3)/[facility] Lymphocytes % 43.1 % [facility] Lymphocytes Abs 2.7 0.9 - 3.2 x10(3)/[facility]ORATORY Monocytes % 10.1 % [facility] Monocyte Abs 0.6 0.3 - 0.9 x10(3)/[facility]ORATORY Eosinophils % 1.7 % [facility] Eosinophils Abs 0.1 0.0 - 0.4 x10(3)/[facility]ORATORY Basophils % 0.5 % [facility] Basophils Abs 0.0 0.0 - 0.1 x10(3)/[facility]ORATORY Immature Gran % 0.20 % [facility] Comment: Immature granulocytes(IG's)percentage and absolute count will include metamyelocytes, myelocytes, and promyelocytes. Blood smears from CBCs yielding IG's will be scanned manually for concordance. If this scan disagrees with the automated IG or if promyelocytes are noted, a manual differential will be performed. Anya Gran Abs 0.01 0.00 - 0.04 x10(3)/[facility]ATORY Blood 12/11/2021 6:34 PM EST 12/11/2021 6:41 PM EST Narrative Resulting Agency Comment Spec In Lab Beau MCCARTHY HEMATOLOGY ORDERABLE S Performing Organization Address City/State/[facility] Co de Phone Number [facility] [place] [address] * (ABNORMAL) Hemogram (12/11/2021 6:34 PM EST) WBC 6.4 4.0 - 9.5 x10(3)/[facility] LABORATORY RBC 3.50(L) 4.00 - 5.21 x10(6)/[facility]ORY Hemoglobin 10.9(L) 11.7 - 15.5 g/dL [facility] Hematocrit 33.8(L) 35.7 - 45.8 % [facility] MCV 96.6(H) 82.6 - 94.4 fL [facility] MCH 31.1 27.1 - 32.0 pg [facility] MCHC 32.2 31.7 - 35.0 g/dL [facility] Platelets 177 145 - 357 x10(3)/[facility] RDWSD 45.2 37.0 - 46.0 fL [facility] RDWCV 12.7 11.5 - 14.1 % [facility] MPV 10.5 7.6 - 12.9 fL [facility] nRBC % Auto 0.0 % [facility] nRBC Abs Auto 0.000 0.000 - 0.000 x10(3)/mcL [facility] Blood 12/11/2021 6:34 PM EST 12/11/2021 6:41 PM EST Narrative Resulting Agency Comment Spec In Lab Beau MCCARTHY HEMATOLOGY ORDERABLE S [facility] [place] [address] * (ABNORMAL) Basic Metabolic Panel (non-fasting) (12/11/2021 6:34 PM EST) Glucose Lvl 130 65 - 199 mg/dL [facility] Comment:Diabetes: >=200 mg/d L plus symptoms BUN 62(H) 8 - 18 mg/dL [facility] Creatinine 1.71(H) 0.70 - 1.20 mg/dL [facility] Sodium 137 135 - 145 mmol/L [facility] Potassium 5.5(H) 3.5 - 5.0 mmol/L [facility] Comment: Please note: ??Patients with WBC >100,000 may have falsely elevated Potassium levels. ??For accurate Potassium quantification in these patients send serum separator tube (gold top) for subsequent determinations. ??Contact the Clinical Chemistry Laboratory if there are any questions. Chloride 103 98 - 107 mmol/L [facility] CO2 24 22 - 31 mmol/L [facility] Anion Gap 10 5 - 15 mmol/L [facility] Calcium 9.5 8.5 - 10.5 mg/dL [facility] Estimated GFR 30(L) >=60 mL/min/1. 73 m?? [facility] Comment: This patient? s estimated glomerular filtration rate (eGFR) is between 30 mL/min/1.73 m2 (patients with less muscle mass) and 35 mL/min/1.73 m2 (patients with more muscle mass) as determined by the CKD-EPI equation. Assessment of eGFR is not appropriate when creatinine concentrations are rapidly changing. For clinical decisions where creatinine clearance will affect therapy, a 24-hour urine creatinine clearance may be advised. Assignment of CKD stage 1 - 5 for patients with an eGFR near the transition point between stages may be based on clinical assessment of muscle mass and symptoms in addition to eGFR. Blood 12/11/2021 6:34 PM EST 12/11/2021 6:41 PM EST Narrative Resulting Agency Comment Spec In Lab Theodore Cochran MD CHEMISTRY ORDERABL ES Performing Organization Address City/[facility]/ZIP Co de Phone Number [facility] [place] [address] * EKG 12 Lead (12/11/2021 5:19 PM EST) Ventricular rate 71 BPM MUSE SYSTEM Atrial Rate 71 BPM MUSE SYSTEM P-R Interval 262 ms MUSE SYSTEM QRS Duration 80 ms MUSE SYSTEM Q-T Interval 400 ms MUSE SYSTEM QTC Calculated (Bezet) 434 ms MUSE SYSTEM Calculated P [place] 54 degrees MUSE SYSTEM Calculated R [place] 17 degrees MUSE SYSTEM Calculated T [place] 58 degrees MUSE SYSTEM INTERPRETATION Sinus rhythm with 1st degree A-V block Premature atrial complexes Possible Anterior infarct , age undetermined Abnormal ECG When compared with ECG of 11-APR-2021 15:51, No significant change was found Confirmed by MD Ap, Brian ([id number]) on 12/12/2021 2:54:09 PM MUSE SYSTEM 12/11/2021 5:19 PM EST 12/12/2021 2:54 PM EST Theodore Cochran MD ECG ORDERABLES MUSE SYSTEM documented in this encounter Visit Diagnoses Diagnosis Hyperkalemia Hyperpotassemia Left lumbar radiculopathy Thoracic or lumbosacral neuritis or radiculitis, unspecified documented in this encounter Administered Medications Inactive Administered Medications - up to 3 most recent administrations Medication Order MAR Action Action Date Dose Rate Site dextrose 10% 250 mL IV bolus at 1,000 mL/hr, Intravenous, ONCE, 1 dose, On Jodee 12/11/21 at 2105, Give 250 mL of dextrose 10% intravenously immediately followed by regular insulin 10 units intravenously. New Bag 12/11/2021 9:20 PM EST 1000 mL/hr insulin regular (HumuLIN R,NovoLIN R) (100 unit/mL) injection vial 10 Units 10 Units, Intravenous, ONCE, 1 dose, On Jodee 12/11/21 at 2105, Give 250 mL of dextrose 10% Intravenously immediately followed by regular insulin 10 units Intravenously. Monitor BG one hour after insulin administration and then every two hours X 2 and PRN., Routine Given 12/11/2021 9:05 PM EST 10 Units sodium chloride 0.9% 1,000 mL IV bolus at 2,000 mL/hr, Intravenous, ONCE, 1 dose, On Jodee 12/11/21 at 2015 New Bag 12/11/2021 8:16 PM EST 2000 mL/hr documented in this encounter Active and Recently Administered Medications Times are shown in EST. Scheduled Medication Order 12/09/2021 12/10/2021 12/11/2021 dextrose 10% 250 mL IV bolus (COMPLETED)(Linked Group 1) at 1,000 mL/hr, Intravenous, ONCE, 1 dose, On Jodee 12/11/21 at 2105, Give 250 mL of dextrose 10% intravenously immediately followed by regular insulin 10 units intravenously. 2119 (New Bag - Prov ider: Soto Pugh RN)2131 (Stopped - Provider: Soto Pugh RN) insulin regular (HumuLIN R,NovoLIN R) (100 unit/mL) injection vial 10 Units (COMPLETED)(Linked Group 1) 10 Units, Intravenous, ONCE, 1 dose, On Jodee 12/11/21 at 2105, Give 250 mL of dextrose 10% Intravenously immediately followed by regular insulin 10 units Intravenously. Monitor BG one hour after insulin administration and then every two hours X 2 and PRN., Routine 2104 (Given - Provid er: Soto Pugh RN) sodium chloride 0.9% 1,000 mL IV bolus (COMPLETED) at 2,000 mL/hr, Intravenous, ONCE, 1 dose, On Jodee 12/11/21 at 2015 2015 (New Bag - Prov ider: Soto Pugh RN)2225 (Stopped - Provider: Soto W Pugh, RN) Linked Groups Order Group 1: dextrose 10% 250 mL IV bolus (COMPLETED)Jump to med at 1,000 mL/hr, Intravenous, ONCE, 1 dose, On Wed12/11/21 at 2105, Give 250 mL of dextrose 10% intravenously immediately followed by regular insulin 10 units intravenously. And insulin regular (HumuLIN R,NovoLIN R) (100 unit/mL) injection vial 10 Units (COMPLETED)Jump to med 10 Units, Intravenous, ONCE, 1 dose, On Wed12/11/21 at 2105, Give 250 mL of dextrose 10% Intravenously immediately followed by regular insulin 10 units Intravenously. Monitor BG one hour after insulin administration and then every two hours X 2 and PRN., Routine And POCT Fingerstick Glucose (CANCELED) STAT, EVERY HOUR, First occurrence on Wed12/11/21 at 2100, Last occurrence on Wed12/11/21 at 2100, For 1 occurrence, Check blood glucose one hour after insulin administration. And POCT Fingerstick Glucose (CANCELED) Routine, EVERY 2 HOURS, First occurrence on Wed12/11/21 at 2200, Last occurrence on Wed12/12/21 at 0000, For 2 occurrences, Check blood glucose two hours after the last STAT blood glucose check documented in this encounter Care Teams Exchange Engineer Relationship Specialty Start Date End Date Asia Gil DO [address] [place] [address] PCP - General Family Medicine 07/09/20 documented as of this encounter
--- OUTSIDE RECORDS SUMMARY | 2024-05-02 12:07 | XMS_ITS | Encounter Summary ---
[place] [address] Care Team Providers Care Child Care Coordinator Name Role Phone Asia Gil DO Primary Care Provider +1- [phone] Encounter Details Date Type Department Care Team (Late st Contact Info) Description 07/14/2021 Telephone [place] [phone] Hannah Antonio APRN [facility] [place] [address] Social History Tobacco Use Types Packs/Day Years [...] encounter Miscellaneous Notes * Telephone Encounter - Hannah Antonio APRN - 07/14/2021 1:46 PM EDT TC from Dr Gil, patient's PCP, to go over findings of my visit with patient on 06/13 and address whether pletal might help her even though I don't think her pain is from claudication. Advised appears more neuropathic and pletal not likely to provide any benefit. Consider increased bedtime doseof gabapentin. Dr. Gil expressed appreciation for the consult. documented in this encounter Plan of Treatment Upcoming Encounters Date Type Department Care Team (Latest Contact Info) Description 05/08/2024 10:30 AM EDT Hospital Encounter Pain Management [place] [phone] Bk Contreras MD [facility] [place] [address] 05/08/2024 10:30 AM EDT - 05/08/2024 11:00 AM EDT [place] [phone] Bk Contreras MD [facility] [place] [address] INJECTION, ANESTHETIC AGENT AND/OR STEROID, TRANSFORAMINAL EPIDURAL, LUMBAR OR SACRAL, SINGLE LEVEL (WRVU 1.9) 05/12/2024 1:00 PM EDT Office Visit Cardiology at [place] [phone] Sadi Styles MD [facility] [place] [address] 05/29/2024 10:15 AM EDT TH Visit (TeleHealth) [facility] [place] [address] Natalee Sanchez APRN [facility] [place] [address] Scheduled Procedures Name Priority Associated Diagnoses Date/Ti me INJECTION, ANESTHETIC AGENT AND/OR STEROID, TRANSFORAMINAL EPIDURAL, LUMBAR OR SACRAL, SINGLE LEVEL (WRVU 1.9) Left lumbar radiculopathy 05/08/2024 10:30 AM EDT documented as of this encounter Visit Diagnoses Not on filedocumented in this encounter Care Teams Child Care Coordinator Relationship Specialty Start Date End Date Asia Gil DO [address] [place] [address] PCP - General Family Medicine 07/09/20 documented as of this encounter
--- OUTSIDE RECORDS SUMMARY | 2024-05-02 12:07 | XMS_ITS | Encounter Summary ---
Author Organization [facility] Address [facility] [place] [address] Care Team Providers Care Varnish Maker Helper Name Role Phone sAia Gil DO Primary Care Provider +1- [phone] Encounter Details Date Type Department Care Team (Latest Contact Info) Description 12/18/2021 10:00 AM EST Office Visit Nephrology Hypertension at [facility] [place] [address] Magdaleno Dia [place] [facility] [place] [address] Chronic kidney disease, unspecified CKD stage; Stage 3 chronic kidney disease, unspecified whether stage 3a or 3b CKD; Hypertensive kidney disease with stage 3b chronic kidney disease Social History Tobacco Use Types Packs/Day Years [...] Sign Reading Time Taken Comments Blood Pressure 140/66 12/18/2021 9:57 AM EST Pulse 82 12/18/2021 9:57 AM EST Temperature - - Respiratory Rate - - Oxygen Saturation - - Inhaled Oxygen Concentration - - Weight 82.6 kg (182 lb) 12/18/2021 9:57 AM EST Height 160 cm (5' 3) 12/18/2021 9:57 AM EST Body Mass Index 32.24 12/18/2021 9:57 AM EST documented in this encounter Progress Notes * Magdaleno Dia MD - 12/18/2021 10:00 AM EST PATIENT: Toyin Coley : 1955 Interval history: Patient reports overall feeling well. She is just returned from a trip to [place]. Slightly overwhelmed by reports of deterioration in her labs. Currently holding lisinopril and magnesium however remains on torsemide. She feels well compensated from a cardiopulmonary standpoint.No issues with urination Assessment/Plan: #Chronic Kidney disease Stage??alisaey stage III/A2-3: CR?? 1.71 mg/dl??->??eGFR ml/min 30 mL/min patient does have eGFR fluctuation reflective of hemodynamic pattern over the previous several years we have than the stage III range.?? Recent concern hyperkalemia with potassium 5.5. Microalbuminuria present suspect diabetic disease. Significant neuropathy. ??Reports occasional NSAID use. ??History of Garcia fibrosis appears well compensated. ??Patient taking PPI no evidence of pyuria. We discussed utility of a kidney biopsy and inform patient this would be unlikely to contribute significant to her management unless there are new signs of inflammatory process as demonstrated by blood and protein in her urine ??Plan: Will send formal UA and for surveillance of proteinuria (microalbumin/UPC).?? If significant increase in protein is apparent will consider appropriate work-up. Will follow up on most recent BMP done yesterday and determine whether or not lisinopril should be reinitiated (she was not on a fairly large dose of this.) Patient given standing order requisition form for BMPs to follow in the coming weeks. If creatinine continues to downtrend would consider holding torsemide focusing on hydration and reassess. We will shorten interval between appointments until we get a better sense of renal stability. ?? #Hemodynamics?? Hypertension well controlled blood pressure 140/66. ?? Antihypertensives:??, metoprolol 50 mg, torsemide 20 mg. Lisinopril currently on hold Volume Status:??Patient appears euvolemic Patient appears well compensated from a cardiopulmonary standpoint. Significant coronary artery disease patient is on aspirin, beta-caridad and high intensity statin. ?? #Hemoglobin Most recent hemoglobin 10.9 g/dL slightly anemic however would not currently qualify for ELOISA therapy Goal Hgb 10-12g/dl, Ferritin>100ng/ml, TSAT>20% ?? #Acid/Base status Most recent Bicarb?? 21 mmol/L consistent with mild acidosis Would Add NaHCO3 if serum bicarb persistently < 22mmol/l ?? #Bone Mineral Health Goal and stage 3 PTH: 35-70 pg/ml ?Phos 2.7-4.6 ??Ca 8.5-10.5mg/dl Renal Clinic Follow-Up Plan: 4 months Past Medical History: Diagnosis Date ??? [...] Drain Pancreatic/Peripancreatic 02/20/2021 Mauro Thomas P, DO [facility] RAD CAT SCAN ??? IR DRAIN CHECK/CHANGE/REMOVE 03/13/2021 IR Drain Check/Change/Remove 03/13/2021 Chris Jamil MD [facility] INTERVENTIONL RAD ??? PRO ERCP,DIAGNOSTIC N/A 01/17/2021 ERCP performed by Eliel Leigh MD at [facility] ENDOSCOPY No family history on file. Social History Social History Narrative Lives by herself with one daughter who lives ~9 miles away from her. Responsible for her own ADLs. Manages her own medications Outpatient medications: Current Outpatient Medications on File Prior to Visit Medication Sig Dispense Refill ??? isosorbide mononitrate CR (Imdur) 30 mg Tablet Sustained Release 24 hr Take 1 tablet by mouth every morning. 30 tablet 12 ??? nitroGLYcerin (Nitrostat) 0.4 mg Tablet, Sublingual Take 0.4 mg by mouth as needed. ??? ondansetron (Zofran) 4 mg Tablet Take 4 mg by mouth as needed. ??? lidocaine-prilocaine (EMLA) Cream Apply 30 Applications topically as needed. ??? Lantus Solostar U-100 Insulin [...] tablets by mouth nightly. 45 tablet 3 ??? oxyCODONE (Roxicodone) 5 mg Tablet Take 1 tablet by mouth every 8 hours as needed for Pain. 15 tablet 0 ??? polyethylene glycoL (Miralax) 17 gram Powder in Packet Take 17 g by mouth daily. (Patient taking differently: Take 17 g by mouth as needed.) 14 each 0 ??? acetaminophen (Tylenol) 325 [...] taking differently: Take 300 mg by mouth 2 times daily.) 90 capsule 12 ??? atorvastatin [...] by mouth daily. 90 tablet 3 ??? [DISCONTINUED] gabapentin (Neurontin) 100 mg Capsule Take 1 capsule by mouth Daily at Noon. 90 capsule 12 ??? lisinopriL (Zestril) 5 mg Tablet Take 1 tablet by mouth daily. (Patient not taking: Reported on12/18/2021) 90 tablet 3 ??? torsemide (Demadex) 10 mg Tablet Take 10 mg by mouth daily. ??? [DISCONTINUED] magnesium oxide (Mag-Ox) 400 mg (241.3 mg magnesium) Tablet Take 1 tablet by mouth 2 times daily. 180 tablet 3 ??? [DISCONTINUED] gabapentin (Neurontin) 100 mg Capsule Take 2 capsules by mouth nightly as needed(sciatic leg pain). (Patient not taking: Reported on 06/19/2021) 90 capsule 12 No current facility-administered medications on file prior [...] PHYSICAL EXAM: Last value Temperature Heart Rate Heart Rate: 82 Blood Pressure BP: 140/66 Respiratory Rate SpO2 Appearance - Alert, Comfortable. Skin - No exanthem. HEENT - Sclera white. Mucous membranes moist. Chest:. Lungs clear to ausculatation w/o wheezes/ rhonchi/ crackles. Heart - S1 and S2 clear w/o murmur, gallop, or rub. JVP not elevated. Abd - Soft. + BS. No bruit. Non tender. Ext - . Warm. No cyanosis. No dependent edema. Neuro - No asterixis. STUDIES: Labs: CBC: Recent Labs 12/11/21 1834 05/15/21 0358 05/14/21 0512 WBC 6.4 6.7 6.4 HGB 10.9* 10.0* 10.7* PLATELET 177 239 223 Chemistry: Recent Labs 12/11/212 12/11/21 1834 05/15/21 0358 05/14/21 0512 05/13/21 1728 04/11/21 1009 03/20/21 1018 NA -- 137 137 138 135 < > 139 K 4.3 5.5* 4.7 4.4 5.0 < > 4.3 CL -- 103 103 102 102 < > 99 CO2 -- 24 25 25 17* < > 28 BUN -- 62* 38* 35* 38* < > 34* CREATININE -- 1.71* 1.60* 1.53* 1.46* < > 1.38* GLUCOSE -- 130 -- -- 95 -- 139 < > = values in this interval not displayed. Recent Labs 12/11/21183305/15/218 05/14/21 0512 05/13/21 1728 CALCIUM 9.5 10.3 10.4 10.1 MAGNESIUM -- 0.89 0.97 0.82 Magdaleno Dia MD, MPH Section of Nephrology #[id number] documented in this encounter Plan of Treatment Upcoming Encounters Date Type Department Care Team (Latest Contact Info) Description 05/08/2024 10:30 AM EDT Hospital En[place] [phone] Bk Contreras MD [facility] [place] [address] 05/08/2024 10:30 AM EDT - 05/08/2024 11:00 AM EDT [place] [phone] Bk Contreras MD [facility] [place] [address] INJECTION, ANESTHETIC AGENT AND/OR STEROID, TRANSFORAMINAL EPIDURAL, LUMBAR OR SACRAL, SINGLE LEVEL (WRVU 1.9) 05/12/2024 1:00 PM EDT Office Visit Cardiology at [address] [phone] Sadi Styles MD [facility] [place] [place] [address] 05/29/2024 10:15 AM EDT TH Visit (TeleHealth) [place] [phone] Natalee Sanchez APRN [facility] [place] [address] Scheduled Procedures Name Priority Associated Diagnoses Date/Ti me INJECTION, ANESTHETIC AGENT AND/OR STEROID, TRANSFORAMINAL EPIDURAL, LUMBAR OR SACRAL, SINGLE LEVEL (WRVU 1.9) Left lumbar radiculopathy 05/08/2024 10:30 AM EDT documented as of this encounter Procedures Procedure Name Priority Date/Time Associated Diagnosis Comments URINALYSIS MICROSCOPIC EXAM STAT 12/18/2021 10:00 AM EST HC CREATININE - NON BLOOD Routine 12/18/2021 10:00 AM EST Chronic kidney disease, unspecified CKD stage URINALYSIS WITH REFLEX CULTURE STAT 12/18/2021 10:00 AM EST Chronic kidney disease, unspecified CKD stage documented in this encounter Results * (ABNORMAL) Urinalysis Microscopic Exam (12/18/2021 10:00 AM EST) RBC UA 1 0 - 4 /HPF [facility] WBC UA 6(H) 0 - 5 /HPF [facility] Squam Epith UA 3 <=4 /HPF [facility] Clean Catch Urine 12/18/2021 10:00 AM EST 12/18/2021 11:16 AM EST Narrative Resulting Agency Comment Spec In Lab Magdaleno Dia MD URINE ORDERABLES Performing Organization Address [facility] de Phone Number [facility] [place] [address] * (ABNORMAL) Urinalysis with reflex Culture (12/18/2021 10:00 AM EST) Glucose UA Negative Negative mg/dL [facility] Protein UA Trace(A) Negative mg/dL [facility] Bilirubin UA Negative Negative mg/dL [facility] Comment: Clinical correlation required for positive Urine Bilirubin results as false positive may occur with some drugs and drug related products. If a false positive is suspected a serum total bilirubin should be considered if clinically indicated. Urobilinogen UA Normal Normal mg/dL [facility] pH UA 5.5 5.0 - 8.0 [facility] Blood UA Negative Negative mg/dL [facility] Ketones UA Negative Negative mg/dL [facility] Nitrite UA Negative Negative [facility] Leukocytes UA Small(A) Negative [facility] Appearance UA Clear Clear [facility] Spec [place] UA 1.021 1.005 - 1.030 [facility] Color UA Yellow Yellow [facility] Culture Reflexed No [facility] Clean Catch Urine 12/18/2021 10:00 AM EST 12/18/2021 11:16 AM EST Narrative Resulting Agency Comment Spec In Lab Magdaleno Dia MD URINE ORDERABLES Performing Organization Address [facility]/ZIP Co de Phone Number [facility] [place] [address] * (ABNORMAL) U Albumin/Cre Ratio (12/18/2021 10:00 AM EST) Alb/Cr Ratio, Random 37(H) 0 - 29 mcg/mg Cr [facility] Comment: Reference Ranges: <30 mcg/mg: [...] 2, 357? 362 U Albumin Conc, Random 32.7 mg/L [facility] U Creatinine 88 mg/dL [facility] Urine 12/18/2021 10:0 0 AM EST 12/18/2021 11:16 AM EST Narrative Resulting Agency Comment Spec In Lab Magdaleno Dia MD URINE ORDERABLES [facility] [place] [address] documented in this encounter Visit Diagnoses Diagnosis Chronic kidney disease, unspecified CKD stage Stage 3 chronic kidney disease, unspecified whether stage 3a or 3b CKD Hypertensive kidney disease with stage 3b chronic kidney disease Left lumbar radiculopathy Thoracic or lumbosacral neuritis or radiculitis, unspecified documented in this encounter Care Teams Varnish Maker Helper Relationship Specialty Start Date End Date Asia Gil DO [address] [place] [address] PCP - General Family Medicine 07/09/20 documented as of this encounter
--- OUTSIDE RECORDS SUMMARY | 2024-05-02 12:07 | XMS_ITS | Encounter Summary ---
[place] [address] Care Team Providers Care Sql Manager Name Role Phone Asia Gil DO Primary Care Provider +1- [phone] Reason for Referral * Diagnostic Test (Routine) - Closed Specialty Diagnoses / Procedures Referred By Leonel chin Referred To Contact Diagnoses Intermittent claudication Procedures ADRY, legs, multiple levels Lamar Caballero APRN [facility] [place] [address] [facility] [address] [place] [address] Referral ID Status Reason Start Date Expiration Date V isits Requested Visits Authorized [id number] Closed Specialty Service Requested 05/22/2021 05/22/2022 1 1 Encounter Details Date Type Department Care Team (Late st Contact Info) Description 05/22/2021 Orders [place] [phone] Lamar Caballero APRN [facility] [place] [address] Intermittent claudication Social History Tobacco Use Types Packs/Day Years [...] 10:30 AM EDT Hospital Encounter Pain Management [place] [phone] Bk Contreras MD [facility] [place] [address] 05/08/2024 10:30 AM EDT - 05/08/2024 11:00 AM EDT Surgery Pain Management [place] [phone] Bk Contreras MD [facility] [place] [address] INJECTION, ANESTHETIC AGENT AND/OR STEROID, TRANSFORAMINAL EPIDURAL, LUMBAR OR SACRAL, SINGLE LEVEL (WRVU 1.9) 05/12/2024 1:00 PM EDT Office Visit Cardiology at [place] [phone] Sadi Styles MD [facility] [place] [address] 05/29/2024 10:15 AM EDT TH Visit (TeleHealth) Pain and Spine Center at [place] [phone] Natalee Sanchez APRN [facility] [place] [address] Scheduled Procedures Name Priority Associated Diagnoses Date/Ti me INJECTION, ANESTHETIC AGENT AND/OR STEROID, TRANSFORAMINAL EPIDURAL, LUMBAR OR SACRAL, SINGLE LEVEL (WRVU 1.9) Left lumbar radiculopathy 05/08/2024 10:30 AM EDT documented as of this encounter Results * ADRY, legs, multiple levels (06/13/2021 1:20 PM EDT) VB Text Report Department: Vascular Surgery Lab Patient: [id number] (TOYIN LION) CPT: 14567 ICD10: I73.9 Referring Physician: LAMAR CABALLERO APRN ?? Indications: 66 year old female with LEFT calf and foot pain and paresthesia (primarily at rest) and bilateral cool feet, history of herniated disc, ? peripheral perfusion Diabetes mellitus: Yes ICD10 Diagnosis Code: I73.9 Findings: Right ?Pressure (mm Hg) ?? ADRY ??Waveform ? TBI ?? Brachial Artery ?124 ? Common Femoral Artery ?Triphasic ? Popliteal Artery ? Biphasic-Rev ? Dorsalis Pedis (Ankle) Artery ?140 ? 1.09 ??Triphasic ? Posterior Tibial (Ankle) Artery ??136 ? 1.06 ??Triphasic ? Great Toe ?78 ?0.61 ?? Left ? Pressure (mm Hg) ?? ADRY ??Waveform ? TBI ?? Brachial Artery ?128 ? Common Femoral Artery ?Triphasic ? Popliteal Artery ? Biphasic-Rev ? Dorsalis Pedis (Ankle) Artery ?122 ? 0.95 ??Triphasic ? Posterior Tibial (Ankle) Artery ??132 ? 1.03 ??Triphasic ? Great Toe ?80 ?0.63 ?? Interpretation: RIGHT: Mild arterial occlusive disease at the foot/toe level with no significant lower extremity arterial occlusive disease to the ankle at rest. LEFT: Mild arterial occlusive disease at the foot/toe level with no significant lower extremity arterial occlusive disease to the ankle at rest. Comparison: No previous study in our vascular lab database for comparison. Electronically Signed by: MALENA MEJÍA MD on 2021-06-16 11:42:02 AM [facility] VB Text Report End of Report [facility] 06/13/2021 1:20 PM EDT Lamar Caballero [employer] ORDERABLE S [facility] documented in this encounter Visit Diagnoses Diagnosis Intermittent claudication Peripheral vascular disease, unspecified Left lumbar radiculopathy Thoracic or lumbosacral neuritis or radiculitis, unspecified documented in this encounter Care Teams Sql Manager Relationship Specialty Start Date End Date Asia Gil DO [address] [place] [address] PCP - General Family Medicine 07/09/20 documented as of this encounter
--- OUTSIDE RECORDS SUMMARY | 2024-05-02 12:07 | XMS_ITS | Encounter Summary ---
[place] [address] Care Team Providers Care Logger Name Role Phone Asia Gil DO Primary Care Provider +1- [phone] Reason for Referral * Consultation (Routine) - Closed Specialty Diagnoses / Procedures Referred By Leonel chin Referred To Contact Gastroenterology Diagnoses Right upper quadrant pain chronic RUQ pain Aggie Sawant MD [address] [place] [address] [facility] [address] [place] [address] Referral ID Status Reason Start Date Expiration Date V isits Requested Visits Authorized [id number] Closed Consult, Test & Treat 02/06/2022 02/06/2023 1 1 Encounter Details Date Type Department Care Team (Latest Contact Info) Description 02/06/2022 Transcribe Orders eDH Incoming Referrals [phone] Karyn Koenig Right upper quadrant pain Social History Tobacco Use Types Packs/Day Years [...] 10:30 AM EDT Hospital Encounter Pain Management [place] [phone] Bk Contreras MD [facility] [place] [address] 05/08/2024 10:30 AM EDT - 05/08/2024 11:00 AM EDT Surgery Pain Management [place] [phone] Bk Contreras MD [facility] [place] [address] INJECTION, ANESTHETIC AGENT AND/OR STEROID, TRANSFORAMINAL EPIDURAL, LUMBAR OR SACRAL, SINGLE LEVEL (WRVU 1.9) 05/12/2024 1:00 PM EDT Office Visit Cardiology at [place] [phone] Sadi Styles MD [facility] [place] [address] 05/29/2024 10:15 AM EDT TH Visit (TeleHealth) [place] [address] Natalee Sanchez, RESIDENT CARE COORDINATOR [facility] [place] [address] Scheduled Procedures Name Priority Associated Diagnoses Date/Ti me INJECTION, ANESTHETIC AGENT AND/OR STEROID, TRANSFORAMINAL EPIDURAL, LUMBAR OR SACRAL, SINGLE LEVEL (WRVU 1.9) Left lumbar radiculopathy 05/08/2024 10:30 AM EDT Scheduled Referrals Name Type Priority Associated Diagnoses Order Schedule Referral to Gastroenterology Outpatient Referral Routine Right upper quadrant pain Ordered: 02/06/2022 documented as of this encounter Visit Diagnoses Diagnosis Right upper quadrant pain Abdominal pain, right upper quadrant Left lumbar radiculopathy Thoracic or lumbosacral neuritis or radiculitis, unspecified documented in this encounter Care Teams Logger Relationship Specialty Start Date End Date Asia Gil DO [address] [place] [address] PCP - General Family Medicine 07/09/20 documented as of this encounter
--- OUTSIDE RECORDS SUMMARY | 2024-05-02 12:07 | XMS_ITS | Encounter Summary ---
[place] [address] Care Team Providers Care Repair Supervisor Name Role Phone Asia Gil DO Primary Care Provider +1- [phone] Encounter Details Date Type Department Care Team (Late st Contact Info) Description 06/13/2021 1:30 PM EDT Tech [place] [phone] Mirta Ramos, [place] Intermittent claudication Social History Tobacco Use Types [...] 10:30 AM EDT Hospital En[place] [phone] Bk Contreras MD [facility] [place] [address] 05/08/2024 10:30 AM EDT - 05/08/2024 11:00 AM EDT [place] [phone] Bk Contreras MD [facility] [place] [address] INJECTION, ANESTHETIC AGENT AND/OR STEROID, TRANSFORAMINAL EPIDURAL, LUMBAR OR SACRAL, SINGLE LEVEL (WRVU 1.9) 05/12/2024 1:00 PM EDT Office Visit Cardiology at [address] Sadi Styles MD [facility] [address] 05/29/2024 10:15 AM EDT TH Visit (TeleHealth) [place] [address] Natalee Sanchez APRN [facility] [place] [address] Scheduled Procedures Name Priority Associated Diagnoses Date/Ti me INJECTION, ANESTHETIC AGENT AND/OR STEROID, TRANSFORAMINAL EPIDURAL, LUMBAR OR SACRAL, SINGLE LEVEL (WRVU 1.9) Left lumbar radiculopathy 05/08/2024 10:30 AM EDT documented as of this encounter Procedures Procedure Name Priority Date/Time Associated Diagnosis Comments ADRY, LEGS, MULTIPLE LEVELS Routine 06/13/2021 1:20 PM EDT Intermittent claudication documented in this encounter Results * ADRY, legs, multiple levels (06/13/2021 1:20 PM EDT) VB Text Report Department: Vascular Surgery Lab Patient: [id number] (ANNA LION) CPT: 36344 ICD10: I73.9 Referring Physician: ARLEEN CABALLERO APRN ?? Indications: 66 year old [...] of Report VASCUBASE 06/13/2021 1:20 PM EDT Arleen Caballero WEBSPHERE DEVELOPER VASCULAR ORDERABLE S VASCUBASE documented in this encounter Visit Diagnoses Diagnosis Intermittent claudication Peripheral vascular disease, unspecified Left lumbar radiculopathy Thoracic or lumbosacral neuritis or radiculitis, unspecified documented in this encounter Care Teams Repair Supervisor Relationship Specialty Start Date End Date Asia Gil DO [address] [place] [address] PCP - General Family Medicine 07/09/20 documented as of this encounter
--- OUTSIDE RECORDS SUMMARY | 2024-05-02 12:07 | XMS_ITS | Encounter Summary ---
Author Organization [facility] [place] [address] Care Team Providers Care Biomedical Engineering Technician Name Role Phone Asia Gil DO Primary Care Provider +1- [phone] Reason for Visit * Reason Comments Medication Refill Encounter Details Date Type Department Care Team (Late st Contact Info) Description 09/10/2021 Refill Cardiology at [address] [address] Antonio Cruz MD [facility] [place] [address] Medication Refill Social History Tobacco Use Types [...] encounter Miscellaneous Notes * Telephone Encounter - Jyoti Moreno RN - 09/10/2021 6:02 PM EST Last TH Visit: 09/09/21 1. Coronary disease. Calcified??severe 2 vessel CAD of the LAD and RCA and moderate but hemodynamically significant LCX??disease.??She underwent??a PCI of the calcified LAD??on 04/11/2021??using a 2.5 x 24 mm SYNERGY XD ASIM stent. We will continue Aspirin, Plavix and high intensity statin. We will continue Toprol XL 50mg daily and low dose lisinopril 2.5 mg daily. She now returns for follow up. Recently developed abdominal pain. Went to the emergency room. Troponins were negative. Perhaps wasa mild touch of her chronic pancreatitis. Underwent a stress test last week which we do not have the results scanned in the chart today. From a cardiovascular perspective continues to do well. Her main complaint today is leg pain. She has both PVD and neuropathy and follows with vascular. Recent ABIs were performed which noted only mild occlusive disease. We will obtain results of her stress test. We will continue DAPT and GDMT. Of note, her lisinopril was stopped. I reviewed her creatinine which is stable around 1.5 to 1.6 mg/dL. We will restart lisinopril at 5 mg daily. We will reorder a BMP to evaluate its impact on her creatinine and potassium. I advise she continue her phase [address] Cruz ordered Ms. Coley Lisinopril at yesterday's TH visit 09/09. Jyoti Moreno DNP, trust evaluation supervisor [facility] at [facility] [phone] documented in this encounter Plan of Treatment Upcoming Encounters Date Type Department Care Team (Latest Contact Info) Description 05/08/2024 10:30 AM EDT Hospital Encounter [place] [phone] Bk Contreras MD [facility] [place] [address] 05/08/2024 10:30 AM EDT - 05/08/2024 11:00 AM EDT Surgery [place] [phone] Bk Contreras MD [facility] [place] [address] INJECTION, ANESTHETIC AGENT AND/OR STEROID, TRANSFORAMINAL EPIDURAL, LUMBAR OR SACRAL, SINGLE LEVEL (WRVU 1.9) 05/12/2024 1:00 PM EDT Office Visit Cardiology at [address] [phone] Sadi Styles MD [facility] [address] 05/29/2024 10:15 AM EDT TH Visit (TeleHealth) [facility] [place] [phone] Natalee Sanchez APRN [facility] [place] [address] Scheduled Procedures Name Priority Associated Diagnoses Date/Ti me INJECTION, ANESTHETIC AGENT AND/OR STEROID, TRANSFORAMINAL EPIDURAL, LUMBAR OR SACRAL, SINGLE LEVEL (WRVU 1.9) Left lumbar radiculopathy 05/08/2024 10:30 AM EDT documented as of this encounter Visit Diagnoses Not on filedocumented in this encounter Care Teams Biomedical Engineering Technician Relationship Specialty Start Date End Date Asia Gil DO [address] [place] [address] PCP - General Family Medicine 07/09/20 documented as of this encounter
--- OUTSIDE RECORDS SUMMARY | 2024-05-02 12:07 | XMS_ITS | Encounter Summary ---
Author Organization [facility] Address [facility] [place] [address] Care Team Providers Care Sensor Operator Name Role Phone Asia Gil DO Primary Care Provider +1- [phone] Encounter Details Date Type Department Care Team (Late st Contact Info) Description 05/12/2021 Telephone Cardiology at [address] [phone] Tiffanie Alvarado PA [facility] [place] [address] Social History Tobacco Use Types Packs/Day Years [...] Miscellaneous Notes * Telephone Encounter - Tiffanie Colvin PA - 05/12/2021 12:00 PM EDT Images from the original note were not included. 05/12/2021 Toyin Coley Initial Contact Date: 05/12/2021 Initial contact time: 12:01 PM Referring Provider: Lalitha Macias PA-C Patient Location: [facility] Past Medical History: HFrEF (EF 40% on echo 01/2021) ASCVD- 3VD s/p LAD ASIM 04/11/21 Valvular heart disease (moderate MS, mild ) Pulmonary HTN (echo 01/2021 PASP 34mmHg) Hx TIA HTN HLD DM CKD Recent post ERCP pancreatitis Anemia of chronic disease Presenting Symptoms per OSH: Toyin Coley is a 66 year old female with history listed above. She presented to [facility] with complaints of chest pressure and SOB. Of note, she was admitted to 02/2021 for post ERCP pancreatitis complicated by ADHF with the finding of newly reduced EF of 40% and triple vessel disease on cardiac catheterization. She was seen by cardiac surgery and deemed a poor surgical candidate. She was referred to Dr. Antonio Cruz for outpatient multivessel PCI. She recently underwent PCI ASIM to LAD 04/11/21. She states since discharge 04/12/21 she has been having increasing episodes of chest pressure and shortness of breath. Initially with exertion and now occurring at rest. These episodes occur intermittently throughout the day and last ~20 minutes. She has been taking 2-4 SL NTG daily which resolves symptoms. She has been participating in cardiac rehab with hopes that this would improve her symptoms, however this has not. No weight changes, orthopnea or edema. Provider notes appears euvolemic. She is scheduled to see Dr. Cruz 06/2021 Vital Signs: HR 63, RR 15, afebrile, 99% on RA, BP stable Pertinent Diagnostic Findings: EKG: NSR rate 63, no acute ischemic changes, lateral TW changes improved compared to prior Troponin negative x1 ProBNP 1,164 Hgb 10.5 (improved from prior reported at 9.5) Cr 1.[address] pending Past cardiac studies: [facility] 04/11/21: Coronary Angiography: Dominance: Right Left Main There was mild diffuse (<=25% stenosis) disease of the entire vessel segment of the left main artery. Left Anterior Descending There were multiple discrete 90% calcified stenoses of the mid segment of the left anterior descending artery (LAD). The LAD was large. There was mild diffuse (<=25% stenosis) disease of the entire vessel segment of the first diagonal branch (Diagonal 1) of the LAD. The Diagonal 1 was large. Left Circumflex There was a 70% long segmental stenosis of the proximal segment of the left circumflex artery (LCX). The LCX was large. There was mild diffuse (<=25% stenosis) disease of the entire vessel segment of the first obtuse marginal branch (OM1) of the LCX. Right Coronary Artery This vessel was not injected. Conclusions: * Obstructive disease of the LAD and LCX * Nonobstructive disease of the LM * Successful stent insertion of the mid LAD lesion * See Dual Antiplatelet (DAPT) Recommendations above Echo 02/05/21 SUMMARY: 1. The left ventricular chamber size [...] study in our system available for comparison. OSH Interventions: None Assessment & Plan: Toyin Coley is a 66 year old female with known ASCVD 3VD, HFrEF, HTN, HLD, DM, CKD among otherswho was recently admitted to for post ERCP pancreatitis complicated by ADHF and found to have 3VD. She was deemed a poor surgical candidate and offered multivessel PCI as an outpatient. Underwent LAD ASIM 04/11/[address] Cruz. Since, has been having increased SOB and chest pressure with exertion and now occurring at rest. Presentation concerning for unstable angina with known residual disease (RCA 70%, RPDA 90%, LCX 70%). Initial troponin negative and EKG without acute ischemic changes. Recommended to trend troponin/EKGs and start IV heparin, continue home ASA, Plavix, statin, BB, ANNETTE and diuretic dosing. Patient appears euvolemic on exam, proBNP 1,000. Plan to obtain CXR. CTA chest discussed to rule out PE, though low on differential and Cr up at 1.8. Will defer for now. Accepted for transfer for further evaluation. Expected to transfer 05/13/21. The above recommendations were based on my discussion with Dr.Lynn Gilberto Dia; I have not personally interviewed or examined this patient. I encouraged Lalitha Macias PA-C to contact us if there is any change in symptoms, decision-making, or further need for guidance in management. Tiffanie Colvin PA-C Cardiovascular Medicine Pager [phone] 05/12/2021 documented in this encounter Plan of Treatment Upcoming Encounters Date Type Department Care Team (Latest Contact Info) Description 05/08/2024 10:30 AM EDT Hospital [place] [address] Bk Contreras MD [facility] [place] [address] 05/08/2024 10:30 AM EDT - 05/08/2024 11:00 AM EDT [place] [phone] Bk Contreras MD [facility] [place] [address] INJECTION, ANESTHETIC AGENT AND/OR STEROID, TRANSFORAMINAL EPIDURAL, LUMBAR OR SACRAL, SINGLE LEVEL (WRVU 1.9) 05/12/2024 1:00 PM EDT Office Visit Cardiology at [address] [phone] Sadi Styles MD [facility] [place] [address] 05/29/2024 10:15 AM EDT TH Visit (TeleHealth) [place] [address] Natalee Sanchez APRN [facility] [place] [address] Scheduled Procedures Name Priority Associated Diagnoses Date/Ti me INJECTION, ANESTHETIC AGENT AND/OR STEROID, TRANSFORAMINAL EPIDURAL, LUMBAR OR SACRAL, SINGLE LEVEL (WRVU 1.9) Left lumbar radiculopathy 05/08/2024 10:30 AM EDT documented as of this encounter Visit Diagnoses Not on filedocumented in this encounter Care Teams Sensor Operator Relationship Specialty Start Date End Date Asia Gil DO [address] [place] [address] PCP - General Family Medicine 07/09/20 documented as of this encounter
--- OUTSIDE RECORDS SUMMARY | 2024-05-02 12:07 | XMS_ITS | Encounter Summary ---
Author Organization [facility] Address [facility] [place] [address] Care Team Providers Care Real Estate Office Manager Name Role Phone Asia Gil DO Primary Care Provider +1- [phone] Encounter Details Date Type Department Care Team (Late st Contact Info) Description 08/22/2021 Telephone Cardiology at [address] [phone] Daniel Jimenez PA [facility] [place] [address] Social History Tobacco Use Types Packs/Day Years [...] encounter Miscellaneous Notes * Telephone Encounter - Daniel Jimenez PA - 08/22/2021 12:19 PM EST Images from the original note were not included. 08/22/2021 Toyin Coley Initial Contact Date: 08/22/2021 Initial contact time: 12:19 PM Referring Provider: Lalitha Macias PA-C Patient Location: [facility] Past Medical History: Hx HFrEF (LVEF 40% 01/2021 which improved to 55-60% 05/2021) ASCVD s/p ASIM to calcified LAD 04/11/21 Pulm Hypertension Hx of TIA HLD HTN RLS CKD Presenting Symptoms per OSH: Toyin Coley is a 66 y.o. female with PMH of the above who presented to OSH with epigastric painwithout radiation and intermittent nausea. Non-exertional. Comes and goes. Lasts for 30 minutes maximum duration. No chest pain currently. CT abd/pelvis WNL. Calling for cardiology recommendations. Pertinent Diagnostic Findings: Negative troponin BNP 400 CBC/CMP WNL Past cardiac studies: EKG: Echo: 05/14/21 SUMMARY: ?? 1. Limited study for ventricular function. 2. [...] wall motion abnormalities are no longer present. Cath: 04/11/21 Conclusions: * Obstructive disease of the LAD and LCX * Nonobstructive disease of the LM * Successful stent insertion of the mid LAD lesion * See Dual Antiplatelet (DAPT) Recommendations above OSH Interventions: None at this time Plan: Patient is hemodynamically stable and chest pain free. Has not complained of chest pain, only mild epigastric discomfort which comes and goes. Negative cardiac biomarkers, negative CTA. Not concernedfor ACS at this time. Would recommend obtaining a transthoracic echocardiogram at this time for further ischemic evaluation secondary to her complex coronary history. Maintain outpatient appt scheduled with Dr. Cruz 09/11/21. Recommend calling back if there are any changes in the patient condition or if she develops chest pain. Above recommendations were based on my discussion with Lalitha Macias PA-C; I have not personally interviewed or examined this patient. Advised to call the transfer center back with any changes in the patient condition. Daniel Jimenez PA-C Pager [phone] 08/22/2021 documented in this encounter Plan of Treatment Upcoming Encounters Date Type Department Care Team (Latest Contact Info) Description 05/08/2024 10:30 AM EDT Hospital [place] [phone] Bk Contreras MD [facility] [place] [address] 05/08/2024 10:30 AM EDT - 05/08/2024 11:00 AM EDT [place] [phone] Bk Contreras MD [facility] [place] [address] INJECTION, ANESTHETIC AGENT AND/OR STEROID, TRANSFORAMINAL EPIDURAL, LUMBAR OR SACRAL, SINGLE LEVEL (WRVU 1.9) 05/12/2024 1:00 PM EDT Office Visit Cardiology at [address] [phone] Sadi Styles MD [facility] [place] [address] 05/29/2024 10:15 AM EDT TH Visit (TeleHealth) [facility] [place] [phone] Natalee Sanchez, SOLAR WATER HEATER INSTALLER [facility] [place] [address] Scheduled Procedures Name Priority Associated Diagnoses Date/Ti me INJECTION, ANESTHETIC AGENT AND/OR STEROID, TRANSFORAMINAL EPIDURAL, LUMBAR OR SACRAL, SINGLE LEVEL (WRVU 1.9) Left lumbar radiculopathy 05/08/2024 10:30 AM EDT documented as of this encounter Visit Diagnoses Not on filedocumented in this encounter Care Teams Real Estate Office Manager Relationship Specialty Start Date End Date Asia Gil DO [address] [place] [address] PCP - General Family Medicine 07/09/20 documented as of this encounter
--- OUTSIDE RECORDS SUMMARY | 2024-05-02 12:07 | XMS_ITS | Encounter Summary ---
Author Organization [place] [address] Care Team Providers Care Daycare Provider Name Role Phone Asia Gil DO Primary Care Provider +1- [phone] Encounter Details Date Type Department Care Team (Late st Contact Info) Description 05/20/2021 Telephone Cardiology at [address] [phone] Bernardo Santos, RN Social History Tobacco Use [...] encounter Miscellaneous Notes * Telephone Encounter - Antonio Cruz MD - 05/21/2021 10:51 AM EDT Hi Chase, Appreciate VM prompt from Dr. Flores. I agree with her, please refer Toyin Nelson Coley to [facility] for claudication symptom evaluation and treatment. Thank you. Antonio Cruz MD * Telephone Encounter - Bernardo Santos RN - 05/20/2021 2:52 PM EDT Appreciate prompt from Dr. Gil, seeking connection with Dr. Cruz to discuss shared patient Toyin Coley. Provides context of concern related to Ms. Wan's symptoms of left sided leg pain. Seeking review of ADRY's done at their local office. Questioning whether a formal referral to [facility] Vascular would offer greater benefit to patient. Also hoping for Peer to Peer discussion and guidance in regarding trial of medications to address claudication. Currently scheduled for follow up with Dr. Cruz 06/19/2021. Offers her personal cell for direct contact ([phone]) or her office number of [phone]. Call returned on behalf of Dr. Cruz. Routed to . Message left on [employer] messaging system, acknowledging her request. (Apprised Dr. Cruz scheduled in Cardiac Cath procedures this afternoon)> Note routed to Dr. Cruz as requested. Chase Santos core rescuer Team Nurse [facility] Ambulatory Cardiology documented in this encounter Plan of Treatment Upcoming Encounters Date Type Department Care Team (Latest Contact Info) Description 05/08/2024 10:30 AM EDT Hospital En[place] [address] Bk Contreras MD [facility] [place] [address] 05/08/2024 10:30 AM EDT - 05/08/2024 11:00 AM [place]T [place] [address] Bk Contreras MD [facility] [place] [address] INJECTION, ANESTHETIC AGENT AND/OR STEROID, TRANSFORAMINAL EPIDURAL, LUMBAR OR SACRAL, SINGLE LEVEL (WRVU 1.9) 05/12/2024 1:00 PM EDT Office Visit Cardiology at [address] [address] Sadi Styles MD [facility] [place] [address] 05/29/2024 10:15 AM EDT TH Visit (TeleHealth) [place] [phone] Natalee Sanchez APRN [facility] [place] [address] Scheduled Procedures Name Priority Associated Diagnoses Date/Ti me INJECTION, ANESTHETIC AGENT AND/OR STEROID, TRANSFORAMINAL EPIDURAL, LUMBAR OR SACRAL, SINGLE LEVEL (WRVU 1.9) Left lumbar radiculopathy 05/08/2024 10:30 AM EDT documented as of this encounter Visit Diagnoses Not on filedocumented in this encounter Care Teams Daycare Provider Relationship Specialty Start Date End Date Asia Gil DO [address] [place] [address] PCP - General Family Medicine 07/09/20 documented as of this encounter
--- OUTSIDE RECORDS SUMMARY | 2024-05-02 12:07 | XMS_ITS | Encounter Summary ---
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 Iron deficiency anemia. HGB 9. Re-eval for possible PCI. Asia Gil DO [address] [place] [address] [facility] Cardiology [address] [place] [id number] Referral ID Status Reason Start Date Expiration Date V isits Requested Visits Authorized [id number] Closed Consult, Test & Treat Connection [facility] PCP Updated and/or Approved 04/08/2021 04/08/2022 6 6 Encounter Details Date Type Department Care Team (Latest Contact Info) Description 06/19/2021 9:00 AM EDT Office Visit Cardiology at [address] [address] Antonio Cruz MD [facility] [place] [address] Hypertension, unspecified type; S/P coronary artery stent placement; ASCVD (arteriosclerotic cardiovascular disease); Hyperlipidemia, unspecified hyperlipidemia type; HFrEF (heart failure with reduced ejection fraction); Acute on chronic combined systolic and diastolic congestive heart failure Social History Tobacco Use Types Packs/Day Years [...] Sign Reading Time Taken Comments Blood Pressure 129/52 06/19/2021 9:29 AM EDT Pulse 54 06/19/2021 9:26 AM EDT Temperature - - Respiratory Rate - - Oxygen Saturation 100% 06/19/2021 9:26 AM EDT Inhaled Oxygen Concentration - - Weight 77.3 kg (170 lb 6.4 oz) 06/19/2021 9:26 A M EDT Height 160 cm (5' 3) 06/19/2021 9:26 AM EDT rep orted Body Mass Index 30.19 06/19/2021 9:26 AM EDT documented in this encounter Progress Notes * Antonio Cruz MD - 06/19/2021 9:00 AM EDT Images from the original note were not included. [facility] [place] [id number] CARDIOLOGY OUTPATIENT CLINIC VISIT [facility] Toyin Coley 06/19/2021 Referring Providers: Asia Gil, DO None None N/A CARDIAC-RELEVANT PROBLEM LIST: 1. HFrEF (heart failure with reduced ejection fraction), EF 40% on echo in January 2021 2. ASCVD (arteriosclerotic cardiovascular disease) Calcified severe 2 vessel CAD of the LAD and RCAand moderate but hemodynamically significant LCX??disease.??She underwent a PCI of the calcified LAD on 04/11/2021 using a 2.5 x 24 mm SYNERGY XD ASIM stent. 3. Moderate MS, Echo January 2021 showed [...] 14. Pancreatic pseudocyst, Pancreatitis, Pancreatic abscess 15. Jhyxp-fz-dbuqlws kidney injury 16. Anemia of chronic disease 17. Acute blood loss anemia HISTORY OF PRESENT ILLNESS: Toyin Coley is a 66 y.o. female patient presenting for an outpatient cardiology visit after recent hospitalization in February 2021. Toyin Coley??is a 65 y.o.??female??with a medical history of SIMMONS cirrhosis [...] and RCA and moderate but hemodynamically significant LCX??disease.??We stopped that day to discuss Plavix candidacy or surgical candidacy with Dr. Gilmore's team. At that time she was referred for surgical revascularization as she has diabetes and LV dysfunction and 3 vessel disease. She was generally thought gregg a poorer candidate for Plavix given that she was recovering from surgery. At that time diuresis was continued for her LVEDP of 20-22 mmHg. She was evaluated by CT surgery in February 2021: She is currently a very poor candidate for CABG surgery at this time. While she technically has 3vd, her RCA and LCX disease is really not very severe. Her wall motion abnormalities are in the LAD distribution, which has much more severe disease. I would recommend consideration of LAD PCI as a first approach. This does not need to happen acutely. THis would allow her to potentially recover from her pancreatitis and perhaps be a better candidate for surgical revascularization down the line. Her valves will be an issue in the future and it would be best to hold of on hear surgery until valves are a pressing problem. Having to face her valve problem as a redo with her comorbid problems would make surgery almost a prohibitive risk. I saw her in clinic in March 2021 when she was still having signififcant anginal symptoms. She underwent a PCI of the calcified LAD on 04/11/2021 for her symptoms of angina. We perfromed a PCI of the angulated and heavily calcified mid LAD using a 2.5 x 24 mm SYNERGY XD ASIM stent. She has LCX and RCA disease, which for now we will continue to medically manage. The plan was to send her to cardiac rehab and re-evaluate her ischemic symptoms in clinic in 1-2 months to see how she is tolerating the rehab, to decide further interventions. And to continue Aspirin 81 mg daily, Plavix and high intensity statin. She now returns for follow up. She has started cardiac rehab. She describes no chest pain or shortness of breath. In fact she states, I feel strong after the stenting and starting cardiac rehab. Last week she mowed her lawn and noted she was not as short of breath as previously. She had no anginaeither. Her main complaint is leg pain. She follows with vascular. We performed ABIs which noted only mild occlusive arterial disease. ABIs 06/16/2021 Interpretation:?? RIGHT: Mild arterial [...] study in our system available for comparison. Denies lightheadedness, syncope, chest pain/pressure/tightness, shortness of breath, weight loss orweight gain, lower extremity swelling. No PND or orthopnea. No symptoms of sleep disordered breathing. Review of systems: Please see the HPI [...] Guided Drain Pancreatic/Peripancreatic 02/20/2021 Mauro Thomas, DO [facility] RAD CAT SCAN ??? IR DRAIN CHECK/CHANGE/REMOVE 03/13/2021 IR Drain Check/Change/Remove 03/13/2021 Chris Jamil MD [facility] INTERVENTIONL RAD ??? PRO ERCP,DIAGNOSTIC N/A 01/17/2021 ERCP performed by Eliel Leigh MD at [facility] ENDOSCOPY SOCIAL HISTORY: reports that she has never smoked. She has never used smokeless tobacco. She reports previous alcohol use. She reports current drug use. Frequency: 7.00 times per week. Drug: Marijuana. FAMILY HISTORY: family history is not on file. MEDICATIONS: Current Outpatient Medications Medication Sig Dispense Refill ??? torsemide (Demadex) 10 mg Tablet Take [...] 2nd Gen Pen Needle 32 gauge x 32 Needle USE WITH DAILY INSULIN ??? aspirin 81 mg Tablet, Chewable Take 81 mg by mouth daily. 90 tablet 3 ??? clopidogreL (Plavix) 75 mg Tablet Take 1 tablet by mouth daily. 90 tablet 3 ??? magnesium oxide (Mag-Ox) 400 mg (241.3 mg magnesium) Tablet Take 1 tablet by mouth 2 times daily. 180 tablet 3 ??? melatonin 3 mg Tablet [...] by mouth daily. 90 tablet 3 ??? lisinopriL (Zestril) 10 mg Tablet TAKE ONE TABLET BY MOUTH DAILY (Patient not taking: Reported on 06/13/2021) 90 tablet 3 ??? lidocaine-prilocaine (EMLA) Cream Apply 30 Applications topically as needed. ??? gabapentin (Neurontin) 100 mg Capsule Take 1 capsule by mouth Daily at Noon. (Patient not taking: Reported on 06/19/2021) 90 capsule 12 ??? gabapentin (Neurontin) 100 mg Capsule Take 2 capsules by mouth nightly as needed (sciatic leg pain). (Patient not taking: Reported on 06/19/2021) 90 capsule 12 No current facility-administered medications for this visit. ALLERGIES: Reviewed and updated as appropriate in the medical record: Benzodiazepines, House dust, Hydrocodone-acetaminophen, Metoclopramide, Mold extracts, Pollen extracts, Propoxyphene hcl, and Unknown [unclassified drug] PHYSICAL EXAMINATION: Vitals: Patient Vitals for the past 24 hrs: Pulse BP SpO2 06/19/21 0926 54 (!) 125/38 100 % 06/19/21928 -- 129/52 -- Constitutional: Normal general appearance, no distress HEENT: PERRL, EOMI; dentition unremarkable Respiratory: CTAB, no wheezes, rales Cardiovascular: Normal S1S2, no murmurs, rubs or gallops Vessels: Normal jugular venous pressure; palpable pulses in all extremities Extremities: No clubbing; no edema Musculoskeletal: No [...] 75 05/14/2021 ASSESSMENT/PLAN: Toyin Coley is a 66 y.o. female patient presenting for an outpatient cardiology visit for the following cardiovascular conditions: No diagnosis found. 1. Coronary disease. Calcified severe 2 vessel CAD of the LAD and RCA and moderate but hemodynamically significant LCX??disease.??She underwent a PCI of the calcified LAD on 04/11/2021 using a 2.5 x 24 mm SYNERGY XD ASIM stent. We will continue Aspirin, Plavix and high intensity statin. We will continue Toprol XL 50 mg d aily and low dose lisinopril 2.5 mg daily. She now returns for follow up. She has started cardiac rehab. She describes no chest pain or shortness of breath. In fact she states, I feel strong after the stenting and starting cardiac rehab. Last week she mowed her lawn and noted she was not as shortof breath as previously. She had no angina either. Her main complaint is leg pain. She follows withvascular. We performed ABIs which noted only mild occlusive arterial disease. We will continue to medically manage her coronary disease. We will continue DAPT and other GDMT. 2. CHF, EF 40%, mod MS mild , valvular heart disease. She appears euvolemic today, no edema and symptoms of shortness of breath are improving. She shouldcontinue Torsemide 20 mg daily. In the near future, I anticipate as her cardiomyopathy improves post PCI, we may need some dose adjustment of her torsemide. I advised her to call our office if she gets dizzy and lightheaded with torsemide in the future. 3. Diabetes. I advised strict control 4. CVD. Stable 5. CKD. We will check a repeat BMP 6. Hypertension. As above Thank you for the opportunity to take care of Toyin Coley. Sincerely, Dr. Antonio Cruz MD [facility] [employer] [facility] Interventional Cardiology 06/19/2021 CC: Asia Gil DO documented in this encounter Plan of Treatment Upcoming Encounters Date Type Department Care Team (Latest Contact Info) Description 05/08/2024 10:30 AM EDT Hospital [place] [address] Bk Contreras MD [facility] [place] [address] 05/08/2024 10:30 AM EDT - 05/08/2024 11:00 AM [place] [address] Bk Contreras MD [facility] [place] [address] INJECTION, ANESTHETIC AGENT AND/OR STEROID, TRANSFORAMINAL EPIDURAL, LUMBAR OR SACRAL, SINGLE LEVEL (WRVU 1.9) 05/12/2024 1:00 PM EDT Office Visit Cardiology at [address] [address] Sadi Styles MD [facility] [place] [address] 05/29/2024 10:15 AM EDT TH Visit (TeleHealth) [facility] [place] [address] Natalee Sanchez APRN [facility] [address] Scheduled Procedures Name Priority Associated Diagnoses Date/Ti me INJECTION, ANESTHETIC AGENT AND/OR STEROID, TRANSFORAMINAL EPIDURAL, LUMBAR OR SACRAL, SINGLE LEVEL (WRVU 1.9) Left lumbar radiculopathy 05/08/2024 10:30 AM EDT documented as of this encounter Visit Diagnoses Diagnosis Hypertension, unspecified type S/P coronary artery stent placement Postsurgical percutaneous transluminal coronary angioplasty status ASCVD (arteriosclerotic cardiovascular disease) Unspecified cardiovascular disease Hyperlipidemia, unspecified hyperlipidemia type HFrEF (heart failure with reduced ejection fraction) Acute on chronic combined systolic and diastolic congestive heart failure Acute on chronic combined systolic and diastolic heart failure Left lumbar radiculopathy Thoracic or lumbosacral neuritis or radiculitis, unspecified documented in this encounter Care Teams Video Tape Editor Relationship Specialty Start Date End Date Asia Gil DO [address] [place] [address] PCP - General Family Medicine 07/09/20 documented as of this encounter
--- OUTSIDE RECORDS SUMMARY | 2024-05-02 12:07 | XMS_ITS | Encounter Summary ---
[place] [address] Care Team Providers Care Conveyor Attendant Name Role Phone Jeffery Asiarafaela Dunn DO Primary Care Provider [phone]- [phone] Reason for Visit * Reason Comments Medication Refill Encounter Details Date Type Department Care Team (Late st Contact Info) Description 06/02/2021 Refill [place]phrology [place] [address] Magdaleno Dia MD [facility] [place] [address] Social History Tobacco Use Types Packs/Day Years [...] 10:30 AM EDT Hospital [place] [phone] Bk Contreras MD [facility] [place] [place] [address] 05/08/2024 10:30 AM EDT - 05/08/2024 11:00 AM EDT Surgery Pain Management [address] Bk Contreras MD [facility] [place] [address] INJECTION, ANESTHETIC AGENT AND/OR STEROID, TRANSFORAMINAL EPIDURAL, LUMBAR OR SACRAL, SINGLE LEVEL (WRVU 1.9) 05/12/2024 1:00 PM EDT Office Visit Cardiology at [address] Sadi Styles MD [facility] [place] [address] 05/29/2024 10:15 AM EDT TH Visit (TeleHealth) [facility] [place] [phone] Natalee Sanchez, KURTIS [facility] [place] [address] Scheduled Procedures Name Priority Associated Diagnoses Date/Ti me INJECTION, ANESTHETIC AGENT AND/OR STEROID, TRANSFORAMINAL EPIDURAL, LUMBAR OR SACRAL, SINGLE LEVEL (WRVU 1.9) Left lumbar radiculopathy 05/08/2024 10:30 AM EDT documented as of this encounter Visit Diagnoses Not on filedocumented in this encounter Care Teams Conveyor Attendant Relationship Specialty Start Date End Date Asia Gil DO [address] [place] [id number] PCP - General Family Medicine 07/09/20 documented as of this encounter
--- OUTSIDE RECORDS SUMMARY | 2024-05-02 12:07 | XMS_ITS | Encounter Summary ---
Author Organization [facility] Address [facility] [place] [address] Care Team Providers Care Administrative Job Titles Name Role Phone Asia Gil DO Primary Care Provider [phone] Reason for Visit * Auth/Cert Specialty Diagnoses / Procedures Referred By Contjaymie t Referred To Contact Diagnoses Unstable angina unstable angina Procedures EMERGENCY IPI Referral ID Status Reason Start Date Expiration Date Visits Re quested Visits Authorized [id number] 1 1 Encounter Details Date Type Department Care Team (Latest Contact Info) Description 05/13/2021 4:09 PM EDT - 05/15/2021 11:18 AM EDT Hospital Encounter Intermediate [place] [id number] Debbi Zimmer MD [facility] [place] [id number] Coronary artery disease, unspecified vessel or lesion type, unspecified whether angina present, unspecified whether havasupai or transplanted heart; Acute renal failure superimposed on chronic kidney disease, unspecified CKD stage, unspecified acute renal failure type Discharge Disposition: Home Social History Tobacco Use [...] Reading Time Taken Comments Blood Pressure 129/52 05/15/2021 7:46 AM EDT Pulse 72 05/15/2021 7:46 AM EDT Temperature 36.4 ??C (97.5 ??F) 05/15/2021 7:46 AM ED T Respiratory Rate 15 05/15/2021 7:46 AM EDT Oxygen Saturation 99% 05/15/2021 7:46 AM EDT Inhaled Oxygen Concentration - - Weight 73.1 kg (161 lb 2.5 oz) 05/15/2021 3:41 A M EDT Height 160 cm (5' 3) 05/13/2021 4:00 PM EDT Body Mass Index 28.55 05/13/2021 4:00 PM EDT documented in this encounter Discharge Summaries * Debbi Zimmer MD - 05/15/2021 11:18 AM EDT Images from the original note were not included. Discharge Summary Patient Name: Toyin Coley Patient Age: 66 y.o. Language: Georgian Race: White Ethnicity: Not nor Admit date: 05/13/2021 Discharge date and time: 05/15/2021 Attending Physician: No att. providers found Discharge Physician: No att. providers found I have seen and examined this patient and discussed with the consultant internship, resident, fellow. I agree withthe plan noted This is a 66 year old woman with 3-vessel coronary artery disease but not felt to be a surgical candidate. She had PCI of LAD but had residual LCX and RCA disease. She presented with chest pain, Troponin negative and EKG not suggestive of ischemia. Echocardiogram showed improvement in EF (now normal, was 40%). She has CKD and we felt that there was no clear indication for cardiac catheterization at this time. She will have follow up with Dr Antonio Cruz (who performed PCI). I have sent him a message regarding her hospital stay. We have added long-acting nitrate. Debbi Zimmer MD, Kellie, [facility] Cardiology Attending ID: Toyin Coley is a 66 y.o. female with past medical history significant for DMII (last A1c 7.0%), TIA, HLD, HTN, CKD (baseline creatinine ~1.2), CAD w/ multi-vessel disease determined to be poor surgical candidate so s/p ASIM to LAD, HFrEF (last EF 40% 01/2021) who presents today with concern for unstable angina, found to have no new areas of ischemia or infarct and discharged home with medical management. Follow-up Recommendations for Providers: #[place] Med Changes: -Started Imdur 60mg -Stopped lisinopril/losartan (uncertain which she was taking) due to GETACHEW, recommend following up #Monitoring: -Monitor for ongoing symptoms #Lab checks -BMP in 1 week Pending Studies and Lab Data: No current labs Discharge Diagnoses (Hospital Problems) and Secondary Diagnoses (Chronic Problems): Active Hospital Problems Diagnosis ??? Unstable angina Resolved Hospital Problems No resolved problems to display. Active Non-Hospital Problems Diagnosis ??? CAD (coronary artery disease) ??? Pancreatic fluid collection with possible abscess ??? Zczzh-jd-lrgucdk kidney injury ??? Anemia of chronic disease ??? Acute blood loss anemia ??? Pancreatitis ??? Acute exacerbation of congestive heart failure ??? HFrEF (heart failure with reduced ejection fraction) TTE 02/05/2021: SUMMARY: ?? 1. The left ventricular chamber size is [...] study in our system available for comparison. ??? ASCVD (arteriosclerotic cardiovascular disease) Cardiac Catheterization / IFR 02/07/2021: Conclusions: * Three vessel coronary artery disease (LAD, LCX and RCA) * Elevated left ventricular end diastolic pressure The IFR across the 70% proximal LCX lesion was 0.74. This lesion was hemodynamically significant. ??? Pancreatic pseudocyst ??? PONV (postoperative nausea and vomiting) ??? Cystic duct calculus ??? RUQ pain Added automatically from request for surgery [id number] ??? Anxiety ??? Diabetic neuropathy ??? Nonalcoholic steatohepatitis ??? Restless legs syndrome (RLS) ??? CKD (chronic kidney disease) ??? Delirium ??? Hyperlipidemia Off statin due to foot pain side effect ??? Hypertension ??? Diabetes mellitus type 2, uncomplicated ??? Hx-TIA (transient ischemic attack) ??? GERD (gastroesophageal reflux disease) ??? Environmental allergies Display name was automatically updated by a utility run on 01/13/2012 History of Presentation (per 05/13/2021 Admission H&P): Ms. Coley was in her normal state of health until this weekend when she was having some malaise. She noted that at times when she was taking a deep breath she would have some pain, and she thought that she had a sore throat. Additionally, she was having bilateral jaw pain. She had never had any symptoms like this before. These symptoms were associated with chest pressure as well, although she notes that this was not too bad. Some diaphoresis associated as well. There was no radiation to any other locations other than possibly her ears. She took it easy over the weekend and took some nitro. On Wednesday she had started cardiac rehab s/p her stent placement with Dr. Cruz ~1 month ago. She still wasn't feeling great and was feeling nauseous, and her cardiac rehab wanted her to get evaluated in the Er. The Admitted her at [facility], and then she was transferred to [facility]. ?? She states that her symptoms are worse with activity and improve with rest. She has mid-sternal ache present since her stent that is sporadic as well. She states that her symptoms improve with nitro as well. ?? She states that she felt like a zombie on Wednesday and just wasn't herself. Had some dizziness and headaches at that time. No blurry or double vision. No changes to her bowels. No fevers or chills. No orthopnea or PND. ?? She states that she is doing well now and her symptoms have resolved quite well. She is no longer having the jaw pain, chest pressure, or pain with breathing. Hospital Course: Toyin Coley was admitted to the Hospital Medicine Service on 05/13/2021. The following issues were addressed and she was discharged on 05/15/2021. #Chest Pain #Hx HTN #HLD #CAD w/multi-vessel disease s/p ASIM to LAD 01/2021 #HFrEF (EF 40%) Ms. Coley was started on heparin during her transfer to [facility] due to concern for unstable angina. Her EKG was unchanged and her troponin remained negative on repeat checks. An echocardiogram showed no new changes compared to a prior and no areas concerning for new ischemia or scarring. Given this information, she was started on Imdur for medical management of chest pain possibly related to angina. #GETACHEW on CKD Ms. Coley' creatinine was slightly elevated above baseline to 1.53 on admission. This was presumed to be prerenal. We discontinued her lisinopril and losartan and ordered a follow up BMP for 1 weekafter discharge for monitoring. #DMII with neuropathy and insulin use Ms. Coley' glucose levels were well controlled during her admission. She was discharged back on her home regimen #Peripheral neuropathy Ms. Coley noted on admission that she has been taking oxycodone for her peripheral neuropathy at home. This was moved to a PRN during her admission. Procedures: Operations: * No surgery found * Other Major Procedures: No other major procedures Important Studies and Lab Data: DISCHARGE BASIC LABS: Recent Labs 05/15/2135705/14/2151105/13/21 1728 WBC 6.7 6.4 6.2 HGB 10.0* 10.7* 10.3* HCT 30.0* 32.3* 32.2* PLATELET 239 223 236 Recent Labs 05/15/2135705/14/2151105/13/21 1728 NA 137 138 135 K 4.7 4.4 5.0 CL 103 102 102 CO2 25 25 17* BUN 38* 35* 38* CREATININE 1.60* 1.53* 1.46* MAGNESIUM 0.89 0.97 0.82 No results for input(s): BILITOT, BILIDIR, AST, ALT, ALKPHOS in the last 168 hours. No results for input(s): INR, PTT in the last 168 hours. OTHER HAYS LABS: Recent Labs 05/14/21 05 HA1C 6.6* Recent Labs 05/13/21 1728 TSH 1.25 Recent Labs 05/14/21 0512 HDL 40 LDLCHOL 55 CHOLHDL 3.7 TRIG 269 CHLPL 149 Microbiology: No pertinent micro results Discharge Conditions/Prognosis: Upon discharge the pt is hemodynamically stable, afebrile, fully ambulatory without requiring supplemental oxygen, holding down food/drink, and pain controlled with stable oral regimen. Vital Signs: Last value Range last 24 hrs Temperature Temp: 36.4 ??C (97.5 ??F) Temp: [36.4 ??C (97.5 ??F)-36.8 ??C (98.2 ??F)] Heart Rate Heart Rate: 72 Heart Rate: [65-72] Blood Pressure BP: 129/52 BP: (115-135)/(46-59) Respiratory Rate Resp: 15 Resp: [15-16] SpO2 SpO2: 99 % SpO2: [97 %-99 %] Discharge to: home Discharge Medications: Your Medications New Medications Dose Details isosorbide mononitrate CR 30 mg Tablet sr Commonly known as: Imdur Take 1 tablet by mouth every morning. Start taking on: May 16, 2021 30 mg Quantity: 30 tablet Refills: 12 Continued medications with new dosing Dose Details polyethylene glycoL 17 gram Pwpk Commonly known as: Miralax Take 17 g by mouth daily. What changed: ?? when to take this ?? reasons to take this 17 g Quantity: 14 each Refills: 0 Continued medications, unchanged Dose Details acetaminophen 325 mg Tab Commonly known as: Tylenol Take 2 tablets by mouth every 4 hours as needed for Pain. 650 mg Quantity: 30 tablet Refills: 1 aspirin 81 mg Chew Take 81 mg by mouth daily. 81 mg Quantity: 90 tablet Refills: 3 atorvastatin 40 mg Tab Commonly known as: Lipitor Take 1 tablet by mouth every evening. 40 mg Quantity: 90 tablet Refills: 3 BD Dionna 2nd Gen Pen Needle 32 gauge x Ndle USE WITH DAILY INSULIN Generic drug: insulin needles (disposable) Refills: 0 calcium carbonate 200 mg calcium (500 mg) Chew Commonly known as: Tums Take 1-2 tablets by mouth every 4 hours as needed for Heartburn. 500-1,000 mg Refills: 0 clopidogreL 75 mg Tab Commonly known as: Plavix Take 1 tablet by mouth daily. 75 mg Quantity: 90 tablet Refills: [address] 30 mg Cpdr Commonly known as: Cymbalta Take 1 capsule by mouth daily. 30 mg Quantity: 30 tablet Refills: 11 * gabapentin 100 mg Cap Commonly known as: Neurontin Take 1 capsule by mouth Daily at Noon. 100 mg Quantity: 90 capsule Refills: 12 * gabapentin 100 mg Cap Commonly known as: Neurontin Take 2 capsules by mouth 2 times daily. 200 mg Quantity: 90 capsule Refills: 12 * gabapentin 100 mg Cap Commonly known as: Neurontin Take 2 capsules by mouth nightly as needed (sciatic leg pain). 200 mg Quantity: 90 capsule Refills: 12 Lantus Solostar U-100 Insulin 100 unit/mL (3 mL) pen INJECT 10 UNITS SUBCUTANEOUSLY EVERY MORNING FOR DIABETES Generic drug: insulin glargine Refills: 0 lidocaine-prilocaine Crea Commonly known as: EMLA Apply 30 Applications topically as needed. 30 Application Refills: 0 magnesium oxide 400 mg (241.3 mg magnesium) Tab Commonly known as: Mag-Ox Take 1 tablet by mouth 2 times daily. 400 mg Quantity: 180 tablet Refills: 3 melatonin 3 mg Tab Take 2 tablets by mouth nightly. 6 mg Quantity: 180 tablet Refills: 3 metoprolol succinate XL 50 mg Tablet sr Commonly known as: Toprol-XL Take 1 tablet by mouth daily. 50 mg Quantity: 30 tablet Refills: 12 nitroGLYcerin 0.4 mg Subl Commonly known as: Nitrostat Take 0.4 mg by mouth as needed. 0.4 mg Refills: 0 ondansetron 4 mg Tab Commonly known as: Zofran Take 4 mg by mouth as needed. 4 mg Refills: 0 OneTouch Delica Plus Lancet 33 gauge Misc USE TO TEST BLOOD SUGAR DAILY Generic drug: lancets Refills: 0 OneTouch Ultra2 Meter Misc USE DIRECTED TO TEST BLOOD GLUCOSE Generic drug: Blood-Glucose Meter Refills: 0 oxyCODONE 5 mg Tab Commonly known as: Roxicodone Take 1 tablet by mouth every 8 hours as needed for Pain. 5 mg Quantity: 15 tablet Refills: 0 pantoprazole EC 40 mg Tbec Commonly known as: Protonix Take 1 tablet by mouth daily. 40 mg Quantity: 90 tablet Refills: 3 torsemide 20 mg Tab Commonly known as: Demadex Take 0.5 tablets by mouth daily. 10 mg Quantity: 30 tablet Refills: 3 traZODone 50 mg Tab Commonly known as: Desyrel Take 0.5 tablets by mouth nightly. 25 mg Quantity: 45 tablet Refills: 3 * This list has 3 medication(s) that are the same as other medications prescribed for you. Read thedirections carefully, and ask your doctor or other care provider to review them with you. STOPPED Medications fenofibrate 48 mg Tab Commonly known as: TRICOR lisinopriL 2.5 mg Tab Commonly known as: Zestril metroNIDAZOLE 500 mg Tab Commonly known as: Flagyl Updated Allergies/ADRs: Allergies Allergen Reactions ??? Benzodiazepines Other (See Comments) Paradoxical reaction to benzodiazepines ??? House Dust ??? Hydrocodone-Acetaminophen Itching ??? Metoclopramide ??? Mold Extracts ??? Pollen Extracts ??? Propoxyphene Hcl Nausea And Vomiting ??? Unknown [Unclassified Drug] Most environmental allergies: grass, workman, trees,pollen Instructions Given to Patient at Discharge: Patient Instructions Patient Instructions on Discharge to Home Why you were hospitalized - You were hospitalized because there was concern either that you were having a new heart attack/unstable angina or that your stent was being blocked off. Your echo (heart ultrasound) showed that your heart does not have any new areas of damage that would indicate any new damaged areas. Because of this, and because your heart enzymes were normal and EKG showed no changes, and given the risk of damaging your kidneys, we decided not to move forward with the heart cath atthis time. This means that you were not having a heart attack or any new damage to your heart, and we determined to use medical management. We started a new medication called Imdur, which is a long acting nitroglycerin, that should help with your symptoms while you work on cardiac rehab and work with your outpatient scrap preparation supervisor to determine the best next steps. Call your doctor or seek medical attention if you develop the following - chest pain, shortness of breath, passing out, feeling dizzy upon standing, passing out, diarrhea, constipation lasting longerthan 2 days, fevers (temperature over 100.3), chills, abdominal pain, vomiting, difficulty or discomfort when urinating, bloody or black bowel movements, or any other acute or concerning symptom. Activity level - We encourage you to continue with cardiac rehab, and maintain an active and healthy lifestyle Diet - We recommend that you eat a healthy diet based primarily on vegetables, fruits, nuts, and seeds. We recommend that you avoid foods that are high in saturated fat, salt, and refined carbohydrates, such as sweets, junk food, white breads, and fast food. Driving - No new changes Shower/Bath - No new changes Wound Care - N/A Home Oxygen Therapy - N/A Medication Changes - New Medications: Imdur: This is a long acting nitroglycerin medication. It works to relax the blood vessels feeding your heart, allowing more blood to flow through them and help prevent you from having the chest pressure/neck pain/jaw pain that brought you into the hospital initially. Stop these Medications: Lisinopril/Losartan: Please do not take either of these medications while your kidney function is not doing well. Please follow up with Dr. Cruz at your appointment with whether to restart one of these meds. Medications with new dose: None Other Important Instructions Please be sure tofollow up with your cardiac rehabilitation and scrap preparation supervisor Please go to the lab to get your blood drawn in one week Follow-up Appointments Future Appointments Date Time Provider Department Center 06/19/2021 9:00 AM Antonio Cruz MD [facility] CARD 4A [facility] Your Inpatient Medical Team at [facility] Name(s) of your inpatient provider(s): Dr. Zimmer For questions regarding issues relating to your hospitalization on the Hospital Medicine Service, please contact your inpatient physician through the [facility] Director Of Physical Therapy [phone]. Issues after hours and on weekends will be handled by the Hospitalist staff on-call. Your Primary Care Provider Asia Gil DO [phone] General Instructions None Future Appointments and Orders Future Appointments and Orders Future Appointments Provider Department Dept Phone 06/19/2021 9:00 AM Antonio Cruz MD Cardiology at [facility] Arrive at: [place] [facility] [address] [phone] Future Orders Complete By Expires Basic Metabolic Panel (non-fasting) [LAB15 Custom] 05/22/2021 (Approximate) 11/21/2021 Process Instructions: INCLUDES: Calcium, BUN, Creat, GFR, Glucose, Lytes Scheduling Instructions: Comments: Questions: Provider Contact Information: Asia Gil DO [address] [facility] [id number] Discharge References/Attachments: Discharge References/Attachments None documented in this encounter Discharge Instructions * Patient Instructions* Criselda Sher - 05/15/2021 7:53 AM EDT Patient Instructions on Discharge to Home Why you were hospitalized - You were hospitalized because there was concern either that you were having a new heart attack/unstable angina or that your stent was being blocked off. Your echo (heart ultrasound) showed that your heart does not have any new areas of damage that would indicate any new damaged areas. Because of this, and because your heart enzymes were normal and EKG showed no changes, and given the risk of damaging your kidneys, we decided not to move forward with the heart cath atthis time. This means that you were not having a heart attack or any new damage to your heart, and we determined to use medical management. We started a new medication called Imdur, which is a long acting nitroglycerin, that should help with your symptoms while you work on cardiac rehab and work with your outpatient scrap preparation supervisor to determine the best next steps. Call your doctor or seek medical attention if you develop the following - chest pain, shortness of breath, passing out, feeling dizzy upon standing, passing out, diarrhea, constipation lasting longerthan 2 days, fevers (temperature over 100.3), chills, abdominal pain, vomiting, difficulty or discomfort when urinating, bloody or black bowel movements, or any other acute or concerning symptom. Activity level - We encourage you to continue with cardiac rehab, and maintain an active and healthy lifestyle Diet - We recommend that you eat a healthy diet based primarily on vegetables, fruits, nuts, and seeds. We recommend that you avoid foods that are high in saturated fat, salt, and refined carbohydrates, such as sweets, junk food, white breads, and fast food. Driving - No new changes Shower/Bath - No new changes Wound Care - N/A Home Oxygen Therapy - N/A Medication Changes - New Medications: Imdur: This is a long acting nitroglycerin medication. It works to relax the blood vessels feeding your heart, allowing more blood to flow through them and help prevent you from having the chest pressure/neck pain/jaw pain that brought you into the hospital initially. Stop these Medications: Lisinopril/Losartan: Please do not take either of these medications while your kidney function is not doing well. Please follow up with Dr. Cruz at your appointment with whether to restart one of these meds. Medications with new dose: None Other Important Instructions Please be sure tofollow up with your cardiac rehabilitation and scrap preparation supervisor Please go to the lab to get your blood drawn in one week Follow-up Appointments Future Appointments Date Time Provider Department Center 06/19/2021 9:00 AM Antonio Cruz MD [facility] CARD 4A [facility] Your Inpatient Medical Team at [facility] Name(s) of your inpatient provider(s): Dr. Zimmer For questions regarding issues relating to your hospitalization on the Hospital Medicine Service, please contact your inpatient physician through the [facility] Director Of Physical Therapy [phone]. Issues after hours and on weekends will be handled by the Hospitalist staff on-call. Your Primary Care Provider Asia Gil DO [phone] documented in this encounter Medications at Time of Discharge Medication Sig Dispensed Refills Start Date End Date nitroGLYcerin (Nitrostat) 0.4 mg Tablet, Sublingual Take [...] by mouth daily. 90 tablet 3 01/27/2021 isosorbide mononitrate CR (Imdur) 30 mg Tablet Sustained Release 24 hr Take 1 tablet by mouth every morning. 30 tablet 12 05/16/2021 12/22/2023 torsemide (Demadex) 20 mg Tablet Take 0.5 tablets by mouth daily. 30 tablet 3 05/15/2021 06/13/2021 lidocaine-prilocaine (EMLA) Cream Apply 30 Applications topically [...] 01/27/2021 01/18/2023 documented as of this encounter Progress Notes * Sherry Walden RN - 05/15/2021 11:11 AM EDT IV and telemetry discontinued. AVS reviewed with Toyin. Toyin will go home with her son in law. * Jenni Thomas RN - 05/15/2021 4:08 AM EDT Pt denied cp and sob. Complain feet pain and team informed and oxycodone given. VSS. I/o charted. Call cunningham in reach * Debbi Zimmer MD - 05/14/2021 7:51 AM EDT Inpatient Cardiology Progress Note ?? I have seen and examined this patient and discussed with the consultant internship, resident, fellow. I agree withthe plan noted ?? This is a 66 year old woman with 3-vessel coronary artery disease but was not felt to be a surgicalcandidate. She underwent PCI of her LAD with Dr. Amena Cruz in early April 2021 but has residual obstructive disease in two vessels. Plan had been to have her go to cardiac rehab and see how she does clinically. She has been having chest pain requiring SLNTG. On this admission, Troponin has been negative however we will review with interventional cardiology to determine options. ?? Debbi Zimmer MD, Kellie, [facility] Cardiology Attending ?? Patient Name: Toyin Coley Date of Admission: 05/13/2021 ( Hospital Day 1 day ) Service: S1 ID: Toyin Coley is a 66 y.o. female with past medical history significant for CAD w/ multi-vessel disease s/p ASIM to LAD, HFrEF (last EF 40% 01/2021), HTN, HLD, DMII (last A1c 7.0%), TIA, CKD withbaseline Cr ~1.2, who presents for evaluation of unstable angina. 24 hr events: - No acute events overnight, sx resolved ROS: denies CP, SOB, palpitations, PND, Orthopnea, dizziness/LH, LE swelling or pain, n/v, abd pain. Telemetry: NSR with occasional episodes of bradycardia in 50s and 1st degree AV block Meds: Continuous Infusions: ??? heparin (porcine) infusion 900 Units/hr (05/14/21 0530) Scheduled Meds: ??? aspirin 81 mg Oral Daily ??? atorvastatin 40 mg Oral QPM ??? clopidogreL 75 mg Oral Daily ??? DULoxetine DR 30 mg Oral Daily ??? gabapentin 100 mg Oral Daily at Noon ??? gabapentin 200 mg Oral BID ??? melatonin 6 mg Oral Nightly ??? pantoprazole EC 40 mg Oral Daily ??? traZODone 25 mg Oral Nightly ??? sodium chloride 0.9 % (flush) 5 mL Intravenous BID ??? insulin glargine 5 Units Subcutaneous Nightly ??? insulin lispro 0-8 Units Subcutaneous TID WC ??? insulin lispro 1-5 Units Subcutaneous TID AC ??? metoprolol tartrate 12.5 mg Oral Q6H BASIL PRN Meds:.polyethylene glycoL, sodium chloride 0.9 % (flush), lidocaine, nitroGLYcerin, heparin (porcine) AND heparin (porcine) infusion, glucose 40% oral geL OR dextrose 10% OR glucagon,acetaminophen Physical Exam: Last value Range last 24 hrs Temperature Temp: 36.7 ??C (98.1 ??F) Temp: [36.7 ??C (98.1 ??F)-37.2 ??C (99 ??F)] Heart Rate Heart Rate: 66 Heart Rate: [57-79] Blood Pressure BP: 124/51 BP: (100-125)/(45-60) Respiratory Rate Resp: 16 Resp: [16-19] SpO2 SpO2: 99 % SpO2: [96 %-99 %] Intake/Output Summary (Last 24 hours) at 05/14/2021 0751 Last data filed at 05/14/2021 0400 Gross per 24 hour Intake 50 ml Output 700 ml Net -650 ml cumulative I/O's since admission: Patient Vitals for the past 168 hrs: Weight 05/14/21 0500 73.4 kg (161 lb 13.1 oz) 05/13/21 1600 73.7 kg (162 lb 7.7 oz) Physical Exam Constitutional: General: She is not in acute distress. Appearance: Normal appearance. She is not ill-appearing, toxic-appearing or diaphoretic. Cardiovascular: Rate and Rhythm: Normal rate and regular rhythm. Heart sounds: Murmur (systolic murmur at 2 intercostal space of RSB) heard. Neurological: Mental Status: She is alert. Pertinent Labs in the Last 24 Hours: Recent Labs 05/14/21 0512 05/13/21 1728 WBC 6.4 6.2 HGB 10.7* 10.3* HCT 32.3* 32.2* PLATELET 223 236 Recent Labs 05/14/21 0512 05/13/21 1728 NA 138 135 K 4.4 5.0 CL 102 102 CO2 25 17* BUN 35* 38* CREATININE 1.53* 1.46* No results for input(s): AST, ALT, ALKPHOS, BILITOT, BILIDIR in the last 168 hours. Recent Labs 05/14/21 0512 05/13/21 1728 CALCIUM 10.4 10.1 MAGNESIUM 0.97 0.82 No results for input(s): INR, PT, PTT in the last 168 hours. Recent Labs 05/13/21 2334 05/13/21 1728 TROPONINT <0.01 <0.01 Recent Labs 05/14/21 0745 05/13/21 2049 05/13/21 1727 POCGLU 114 112 106 Imaging/Studies: TTE 02/05: SUMMARY: ?? 1. The left ventricular chamber size is [...] study in our system available for comparison. Assessment: Toyin Coley is a 66 y.o. female with past medical history significant for CAD w/ multi-vessel disease s/p ASIM to LAD, HFrEF (last EF 40% 01/2021), HTN, HLD, DMII (last A1c 7.0%), TIA, CKD, who presents with unstable angina. ?? Likely the patient presents with worsening of ischemic disease given that she has known multivesselCAD, but was considered to be a poor surgical candidate for CABG. Stent thrombosis is unlikely in the setting of unremarkable EKG and negative troponins. Other etiologies are heart failure exacerbation of noncardiac chest pain, but both are unlikely given that the patient does not appear to be volume overloaded and reports retrosternal chest pain worse with exertion and alleviated by rest and nitroglycerine. #Unstable angina #Hx HTN #HLD #CAD w/ multi-vessel disease s/p ASIM to LAD 01/2021 #HFrEF (EF 40%) -troponin negative x2, EKG unremarkable - c/w heparin drip - c/w plavix 75mg QD - c/w ASA 81mg QD -c/w atorvastatin 40mg QHS -c/w metoprolol to tartrate 12.5mg q6hrs - start 30mg isosorbide mononitrate - hold home lisinopril 2.5mg QD in anticipation of cath in AM -hold home torsemide, will monitor daily weights and restart if needed -repeat TTE 05/14 #DMII with neuropathy (Last A1c 7.0%) and recently initiated insulin use -Glargine 5u QHS (reduced from 10u QHS home) -1:10 carb ratio -SSI -A1c 6.6 ?? #Peripheral neuropathy -c/w home gabapentin 200mg BID and 100mg at noon -c/w home duloxetine -Has been using 2.5mg oxycodone BID PRN for pain management as well, but not planning to order standing given kidney function etc. -Trazodone QHS -Tylenol PRN ?? #GETACHEW on CKD -Uncertain etiology at this point, possibly prerenal given nausea etc over the last few days - Cr is slightly up from admission - BMP qd -Avoid nephrotoxins - Code status: Attempt Cardiopulmonary Resuscitation - Inpatient Carol Sanchez MD, PGY- 1 Cardiology S2(Pager [phone]) 05/14/2021 * Rita Denton RN - 05/13/2021 5:15 PM EDT Pt arrived to 4E from OSH at approx 1615 with hep gtt. Oriented to room. Pt denied CP or SOB at this time. VSS on RA. NSR on tele. Labs drawn. NPO at midnight for possible cath tomorrow. documented in this encounter H&P Notes * Debbi Zimmer MD - 05/13/2021 4:17 PM EDT [facility] [place] Cardiology H&P Date: 05/13/21 I have seen and examined this patient and discussed with the consultant internship, resident, fellow. I agree withthe plan noted This is a 66 year old woman with 3-vessel coronary artery disease but was not felt to be a surgicalcandidate. She underwent PCI of her LAD with Dr. Amena Cruz in early April 2021 but has residual obstructive disease in two vessels. Plan had been to have her go to cardiac rehab and see how she does clinically. She has been having chest pain requiring SLNTG. On this admission, Troponin has been negative however we will review with interventional cardiology to determine options. Debbi Zimmer MD, Kellie, [facility] Cardiology Attending Patient Information: Toyin Coley [id number] PCP: Asia Gil DO PCP Admit Date: 05/13/2021 4:09 PM Hospital Day 0 days Patient ID: Toyin Coley is a 66 y.o. female with past medical history significant for DMII (last A1c 7.0%),TIA, HLD, HTN, CKD (baseline creatinine ~1.2), CAD w/ multi-vessel disease determined to be poor surgical candidate so s/p ASIM to LAD, HFrEF (last EF 40% 01/2021) who presents today with unstable angina. Patient Active Problem List Diagnosis Code ??? [...] fluid collection with possible abscess K85.90 ??? Keqrb-kx-xqngiky kidney injury N17.9, N18.9 ??? Anemia of chronic disease D63.8 ??? Acute blood loss anemia D62 ??? CAD (coronary artery disease) I25.10 ??? Unstable angina I20.0 HPI Ms. Coley was in her normal state of health until this weekend when she was having some malaise. She noted that at times when she was taking a deep breath she would have some pain, and she thought that she had a sore throat. Additionally, she was having bilateral jaw pain. She had never had any symptoms like this before. These symptoms were associated with chest pressure as well, although she notes that this was not too bad. Some diaphoresis associated as well. There was no radiation to any other locations other than possibly her ears. She took it easy over the weekend and took some nitro. On Wednesday she had started cardiac rehab s/p her stent placement with Dr. Cruz ~1 month ago. She still wasn't feeling great and was feeling nauseous, and her cardiac rehab wanted her to get evaluated in the Er. The Admitted her at [facility], and then she was transferred to [facility]. She states that her symptoms are worse with activity and improve with rest. She has mid-sternal ache present since her stent that is sporadic as well. She states that her symptoms improve with nitro as well. She states that she felt like a zombie on Wednesday and just wasn't herself. Had some dizziness and headaches at that time. No blurry or double vision. No changes to her bowels. No fevers or chills. No orthopnea or PND. She states that she is doing well now and her symptoms have resolved quite well. She is no longer having the jaw pain, chest pressure, or pain with breathing. Medical History Past Medical History: Diagnosis Date ??? CKD (chronic kidney disease) 04/05/2020 ??? Delirium 04/05/2020 ??? Diabetes mellitus type 2, uncomplicated 05/14/2014 ??? Hx-TIA (transient ischemic attack) 05/14/2014 ??? Hyperlipidemia 05/28/2014 Off statin due to foot pain side effect ??? Hypertension 05/28/2014 ??? Restless legs syndrome (RLS) 04/05/2020 Surgical History Past Surgical History: Procedure Laterality Date ??? CT GUIDED DRAIN PANCREATIC/PERIPANCREATIC 02/20/2021 CT Guided Drain Pancreatic/Peripancreatic 02/20/2021 Mauro Thomas, DO [facility] RAD CAT SCAN ??? IR DRAIN CHECK/CHANGE/REMOVE 03/13/2021 IR Drain Check/Change/Remove 03/13/[address] [facility] INTERVENTIONL RAD ??? PRO ERCP,DIAGNOSTIC N/A 01/17/2021 ERCP performed by Eliel Leigh MD at [facility] ENDOSCOPY Social History Social History Socioeconomic History ??? Marital status: Spouse name: Not on file ??? Number of children: Not on file ??? Years of education: Not on file ??? Highest education level: Not on file Occupational History ??? Not on file Tobacco Use ??? Smoking status: Never Smoker ??? Smokeless tobacco: Never Used ??? Tobacco comment: uses medical marijauna Vaping Use ??? Vaping Use: Never used Substance and Sexual Activity ??? Alcohol use: Not Currently Comment: 10 years ago ??? Drug use: Yes Frequency: 7.0 times per week Types: Marijuana Comment: Has not in the last 6 months or so ??? Sexual activity: Not Currently Other Topics Concern ??? Not on file Social History Narrative Lives by herself with one daughter who lives ~9 miles away from her. Responsible for her own ADLs. Manages her own medications Social Determinants of Health Financial Resource Strain: ??? Difficulty of Paying Living Expenses: Food Insecurity: ??? Worried About Running Out of Food in the Last Year: ??? Ran Out of Food in the Last Year: Transportation Needs: ??? Lack of Transportation (Medical): ??? Lack of Transportation (Non-Medical): Physical Activity: ??? Days of Exercise per Week: ??? Minutes of Exercise per Session: Subjective/ROS: Review of Systems Constitutional: Positive for diaphoresis and fatigue. Negative for chills and fever. HENT: Neck pain and jaw pain as anginal equivalent Eyes: Negative for visual disturbance. Respiratory: Negative for cough and shortness of breath. No orthopnea or PND Cardiovascular: Positive for chest pain (Mid sternal chest pressure and dull ache). Negative for leg swelling. Gastrointestinal: Negative for constipation, diarrhea, nausea and vomiting. Neurological: Positive for dizziness and headaches. Negative for weakness. Physical Exam: Vitals: Latest Value 24 Hour Range Temperature Temp: 37.2 ??C (99 ??F) Temp: [37.2 ??C (99 ??F)] Blood Pressure BP: 106/60 BP: (106)/(60) Heart Rate Heart Rate: 79 Heart Rate: [79] Respiration Rate Resp: 19 Resp: [19] O2 Saturation SpO2: 98 % SpO2: [98 %] Ins and Outs: Intake/Output Summary (Last 24 hours) at 05/13/2021 1708 Last data filed at 05/13/2021 1703 Gross per 24 hour Intake -- Output 200 ml Net -200 ml Physical Exam Labs: -- -- -- -- -- -- -- -- H/H -- -- -- -- -- -- -- -- -- -- -- -- --N (--B) / --L / --M / --E / --B Micro: No orders from this admission Imaging: No orders to display Medications: Infusions: ??? heparin (porcine) infusion Scheduled ??? heparin (porcine) ??? aspirin 81 mg Oral Daily ??? atorvastatin 40 mg Oral QPM ??? clopidogreL 75 mg Oral Daily ??? DULoxetine DR 30 mg Oral Daily ??? [START ON 05/14/2021] gabapentin 100 mg Oral Daily at Noon ??? gabapentin 200 mg Oral BID ??? melatonin 6 mg Oral Nightly ??? pantoprazole EC 40 mg Oral Daily ??? traZODone 25 mg Oral Nightly ??? sodium chloride 0.9 % (flush) 5 mL Intravenous BID ??? insulin glargine 5 Units Subcutaneous Nightly ??? insulin lispro 0-8 Units Subcutaneous TID WC ??? insulin lispro 1-5 Units Subcutaneous TID AC PRN acetaminophen, polyethylene glycoL, sodium chloride 0.9 % (flush), lidocaine, nitroGLYcerin, heparin (porcine) AND heparin (porcine) infusion, glucose 40% oral geL OR dextrose 10% OR glucagon Assessment and Plan Toyin Coley is a 66 y.o. female with past medical history significant for DMII (last A1c 7.0%),TIA, HLD, HTN, CKD (baseline creatinine ~1.2), CAD w/ multi-vessel disease determined to be poor surgical candidate so s/p ASIM to LAD, HFrEF (last EF 40% 01/2021) who presents today with unstable angina. Given that she is currently asymptomatic and relatively stable will plan to monitor Ms. Coley overnight and continue on management with a heparin drip, aspirin, plavix, statin, etc. Holding lisinopril and beta caridad for now in the setting of possible cath tomorrow. 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, overnight if unstable -Atorvastatin 40mg QHS -CHANGE metoprolol to tartrate 12.5mg q6hrs -HOLD home lisinopril 2.5mg QD in anticipation of cath in AM -HOLD home torsemide, will monitor daily weights, I&O's spot dose with IV Lasix PRN -Consider repeat echo s/p cath in AM #DMII with neuropathy (Last A1c 7.0%) and recently initiated insulin use -Glargine 5u QHS (reduced from 10u QHS home) -1:10 carb ratio -SSI -A1c in the AM #Peripheral neuropathy -c/w home gabapentin 200mg BID and 100mg at noon -c/w home duloxetine -Has been using 2.5mg oxycodone BID PRN for pain management as well, but not planning to order standing given kidney function etc. -Trazodone QHS -Tylenol PRN #GETACHEW on CKD -Uncertain etiology at this point, possibly prerenal given nausea etc over the last few days -Avoid nephrotoxins -QD BMP -I&O's -HOLD home torsemide, monitor fluid status #General: Diet: NPO diet (Give Meds) Daily Healthy Menu Choices/Cardiac diet ([facility]-Diet) 60/60/75 CHO counting level 2 GI PPx: Pantoprazole DVT PPx: heparin drip Bowel PPx: Miralax PRN Dispo: Admit to Cardiology Code Status Attempt Cardiopulmonary Resuscitation - Inpatient Criselda Sher MD 05/13/21 5:08 PM Internal Medicine, PGY-3 Team Pager: [phone] documented in this encounter Miscellaneous Notes * Care Management Discharge - Erica Agustin RN - 05/15/2021 9:15 AM EDT CARE MANAGEMENT FINAL DISCHARGE NOTE Chart reviewed, care reviewed with primary team and at interdisciplinary rounds. Patient is medically ready for discharge to home. Needs for Transition of Care: Plan for discharge is: Home w/o Services Agency Referrals & Follow-up Care: -None Transportation: family or friend will provide Wheelchair van/Ambulance? No Functional status prior to admission: Independent, Patient Drives Self Home Environment: Others in the home: alone. Current Living Arrangements: home/apartment/condo. Accessibility Concerns:no accessibility/mobility concners. Denies issues with stairs at this time. Current Functional Ability: Independent DME used at home: cane - straight, respiratory supplies, walker - standard (CPAP, scooter -doesn't use the mobility aides but has them) DME Needed at DC: -None Patient is insured through: Primary Insurance: AARP MANAGED MEDICARE Payor: AARP MANAGED MEDICARE / Plan: AARP [facility] MANAGED MEDICARE COMPLETE / Product Type: *No Product type* / Secondary Insurance: [employer] [facility] Prescription Coverage: Yes Preferred Pharmacy: [id number] - [place], [place] - [address] [place] [address] [address] [facility] [address] [facility] [address] This plan was formulated with input from patient, and team. All are in agreement with plan. Erica Agustin, RN, MSN Manager Of Administration - Cardiology Office of Care Management Pager: [phone] * Plan of Care - Supriya Toro RN - 05/14/2021 10:26 PM EDT Pt alert and oriented x4. Heparin gtt D/C this evening. Pt ambulating around unit, 33 laps, gait steady. NPO this am, echo done at bedside. Diet ordered this afternoon. Possible D.C to home tomorrow.C/O feet pain, medicated with tylenol as ordered. Call cunningham in reach. * Care Management - Pamela Cordova RN - 05/14/2021 5:29 PM EDT OFFICE OF CARE MANAGEMENT PROGRESS NOTE LOS: Hospital Day 1 day Chart reviewed, care reviewed with primary team and at interdisciplinary rounds. Patient unable to meet inpatient level of care status changed to Observation status per MD order. Notified by [facility] Utilization Management (UM) Department that the patient's billing status has been changed to Observation Condition Code 44. Notification of Patient Status Change letter has been givento Toyin Coley. Letter has been signed and witnessed, a copy of letter made and the original was given to patient. She was offered copies of CMS publications; Are You a Hospital Inpatient or Outpatient? and Medicare Rights and Protections. Copy of letter to be scanned into patient's medical record. The team was notified that the notification was completed. Functional status prior to admission: Independent, Patient Drives Self Home Environment: Others in the home: alone. Current Living Arrangements: home/apartment/condo. Accessibility Concerns: no accessibility/mobility concners. Denies issues with stairs at this time. Current Functional Ability: Independent DME used at home: cane - straight, respiratory supplies, walker - standard (CPAP, scooter -doesn't use the mobility aides but has them) Patient is insured through: Primary Insurance: AARP MANAGED MEDICARE Payor: AARP MANAGED MEDICARE / Plan: AARP [facility] MANAGED MEDICARE COMPLETE / Product Type: *No Product type* / Secondary Insurance: [employer] [place] Prescription Coverage: Preferred Pharmacy: [id number] - [facility], [place] - [address] AT [address] [facility] [address] [address] Plan for discharge is: Home w/o Services Transportation: family or friend will provide Barriers to discharge: Denies needs/concerns at this time Plan going forward: CM will continue to follow and assist with discharge planning and coordination of care as indicated. Anticipated Date of Discharge: 05/15/2021 Pamela Cordova incubator tender M-Th * Initial Assessments - Erica Agustin RN - 05/14/2021 1:58 PM EDT Office of Care Management Initial Assessment Erica Agustin RN reviewed record and discussed patient with Care Team. Source of Information: Team, bedside nurse, medical record, and Patient, Chart Review Introduced self/reviewed role; services accepted. Reason for Hospitalization: chest pain Last COVID test: Lab Results Component Value Date [id number] Not Detected 02/19/2021 Past medical History: Past Medical History: Diagnosis Date ??? CKD (chronic kidney disease) 04/05/2020 ??? Delirium 04/05/2020 ??? Diabetes mellitus type 2, uncomplicated 05/14/2014 ??? Hx-TIA (transient ischemic attack) 05/14/2014 ??? Hyperlipidemia 05/28/2014 Off statin due to foot pain side effect ??? Hypertension 05/28/2014 ??? Restless legs syndrome (RLS) 04/05/2020 Hospitalizations Within the Past 30 Days: no previous admission in last 30 days Current Decision-Making Capacity: Self Advance Care Planning: Attempt Cardiopulmonary Resuscitation - Inpatient <no information> -Advanced Directive: No, declines (state she is working on it at home with her kids) If AD's have not been completed children would be surrogate decision maker per ID surrogate decision making law. (Only good for 90 days) Any patient receiving care at [facility] must abide by ID law. The hierarchy for surrogate decision making is: (a) Patient???s spouse, or civil union partner or common law spouse unless there is a divorce proceeding, separation agreement, or restraining order limiting that person???s relationship with the patient. (b) Any adult son or daughter of the patient. (c) Either parent of the patient. (d) Any adult brother or sister of the patient. (e) Any adult grandchild of the patient. (f) Any grandparent of the patient. (g) Any adult aunt, uncle, niece, or nephew of the patient. (h) A close friend of the patient. (i) The agent with financial power of ip attorney or a conservator appointed in accordance with RSA 464-A. (j) The guardian of the patient???s estate. Current Coping/Education/Information Needs: states she would like to know what the plan is. CM communicated to MD to follow up with patient regarding plan of care. Current Functional Ability: Independent Functional Status Prior to Admission: Independent, Patient Drives Self Home Environment: Others in the home: alone. Current Living Arrangements: home/apartment/condo. Accessibility Concerns:no accessibility/mobility concners. Denies issues with stairs at this time. Current DME: cane - straight, respiratory supplies, walker - standard (CPAP, scooter -doesn't use the mobility aides but has them) Home Address confirmed as: [address] [facility] [id number] Social & Family Supports: All names listed below confirmed with patient as current and correct Extended Emergency Contact Information Primary Emergency Contact: [place] [address] [place] Relation: Child Secondary Emergency Contact: Silvana Coley, [place] [address] [place] Relation: Child Current Care Provided by: self Provides Primary Care For: no one Caregiver if needed: child(chhaya), adult Quality of Family relationships: involved, helpful, supportive Community Resources being provided currently: none Behavioral Health History: None noted Substance Use/Abuse listed: Social History Tobacco Use Smoking Status Never Smoker Tobacco Comment uses medical [facility]/Prescription Coverage: Primary Insurance: AARP MANAGED MEDICARE Payor: AARP MANAGED MEDICARE / Plan: AARP [facility] MANAGED MEDICARE COMPLETE / Product Type: *No Product type* / Secondary Insurance: [employer] [place] Prescription Coverage: Yes Preferred Pharmacy: [id number] - [place], [place] - [address] [place] [address] AT [address] [facility] [address] [facility] [address] Primary Care Provider: Asia Gil DO [phone] Patient/Caregiver Goals of Treatment: DC home Potential Needs for Transition of Care: none Agency Referrals: Not Applicable Transportation: no concerns Transportation Anticipated: family or friend will provide Concerns to be Addressed: no discharge needs identified, denies needs/concerns at this time Assessment: Patient is admitted to cardiology service for unstable angina with known multivessel disease. Echo today with potential for cardiac cath vs medical management. Plan: Patient with no apparent RNCM/SW needs at this time. No housing, transportation, insurance, resources concerns identified at this time. Supports in place to achieve a safe post-hospital transition. No identified barriers to accessing necessary care and/or follow-up after discharge. A member of the Care Management team will continue to monitor progress, follow for continuity of care and assist with transition of care planning. Erica Agustin RN, MSN Manager Of Administration - Cardiology Office of Care Management Pager: [phone] * Plan of Care - Shannon Rose RN - 05/14/2021 4:13 AM EDT OUTCOME EVALUATION NOTE: OUTCOME SUMMARY: Pt A+Ox4. VSS on RA; intermittently bradycardic to 50s while asleep. Pt denies having any chest pain or SOB. Pt reported 7/10 BLE pain; given PO tylenol x1 and PO oxycodone x1 with good effect. Heparin gtt continued at 900u/hr. Pt received 1g IV mag. Other medications administered, see DEC. Cardiacmonitoring continued. Blood glucose checks done, see results review. Pt NPO at midnight for cardiac cath. Pt rested comfortably between care. Safety maintained. No further events. PLAN MOVING FORWARD: Cardiac cath, continue cardiac monitoring, medication administration, discharge planning documented in this encounter Plan of Treatment Upcoming Encounters Date Type Department Care Team (Latest Contact Info) Description 05/08/2024 10:30 AM EDT Hospital [place] [address] Bk Contreras MD [facility] [place] [address] 05/08/2024 10:30 AM EDT - 05/08/2024 11:00 AM EDT [place] [phone] Bk Contreras MD [facility] [address] INJECTION, ANESTHETIC AGENT AND/OR STEROID, TRANSFORAMINAL EPIDURAL, LUMBAR OR SACRAL, SINGLE LEVEL (WRVU 1.9) 05/12/2024 1:00 PM EDT Office Visit Cardiology at [address] [phone] Sadi Styles MD [facility] [place] [address] 05/29/2024 10:15 AM EDT TH Visit (TeleHealth) [facility] [place] [phone] Natalee Sanchez, K[place] [facility] [place] [address] Scheduled Procedures Name Priority Associated Diagnoses Date/Ti me INJECTION, ANESTHETIC AGENT AND/OR STEROID, TRANSFORAMINAL EPIDURAL, LUMBAR OR SACRAL, SINGLE LEVEL (WRVU 1.9) Left lumbar radiculopathy 05/08/2024 10:30 AM EDT documented as of this encounter Procedures Procedure Name Priority Date/Time Associated Diagnosis Comments POCT GLUCOSE Routine 05/15/2021 7:43 AM EDT BMP W/FASTING GLUCOSE Routine 05/15/2021 3:58 AM EDT HEMOGRAM Routine 05/15/2021 3:58 AM EDT DIFFERENTIAL, AUTOMATED Routine 05/15/2021 3:58 AM EDT HC CBC,PLT & AUTO DIFF Routine 3:58 AM EDT HC MAGNESIUM, SERUM Routine 05/15/2021 3 :58 AM EDT POCT GLUCOSE Routine 05/14/2021 8:09 PM EDT POCT GLUCOSE Routine 05/14/2021 4:54 PM EDT ECHO LMTD W CONTRAST W LMTD SPEC DOPP COLOR DOPP Routine 05/14/2021 1:34 PM EDT Coronary artery disease, unspecified vessel or lesion type, unspecified whether angina present, unspecified whether havasupai or transplanted heart POCT GLUCOSE Routine 05/14/2021 11:47 AM EDT POCT GLUCOSE Routine 05/14/2021 7:45 AM EDT HC UNFRACTIONATED HEPARIN (HEP UFH) STAT 05/14/2021 5:12 AM EDT BMP W/FASTING GLUCOSE Routine 05/14/2021 5:12 AM EDT HEMOGRAM Routine 05/14/2021 5:12 AM EDT DIFFERENTIAL, AUTOMATED Routine 05/14/2021 5:12 AM EDT HC CBC,PLT & AUTO DIFF Routine 5:12 AM EDT HC MAGNESIUM, SERUM Routine 05/14/2021 5 :12 AM EDT HC LDL CHOLESTEROL, DIRECT Routine 05/14/2021 5:12 AM EDT HC HEMOGLOBIN A1C Routine 05/14/2021 5:1 2 AM EDT HC VENIPUNCTURE Routine 05/14/2021 5:12 AM EDT HC TROPONIN T Routine 05/13/2021 11:34 PM EDT HC VENIPUNCTURE STAT 05/13/2021 11:09 PM EDT LAVENDER TUBE HOLD STAT 05/13/2021 11 :09 PM EDT POCT GLUCOSE Routine 05/13/2021 8:49 PM EDT HC UNFRACTIONATED HEPARIN (HEP UFH) STAT 05/13/2021 5:28 PM EDT HEMOGRAM Routine 05/13/2021 5:28 PM EDT DIFFERENTIAL, AUTOMATED Routine 05/13/2021 5:28 PM EDT HC CBC,PLT & AUTO DIFF Routine 5:28 PM EDT HC TROPONIN T Routine 05/13/2021 5:28 PM EDT HC THYROID STIMULATING HORMONE, SERUM Routine 05/13/2021 5:28 PM EDT HC PROBNP Routine 05/13/2021 5:28 PM EDT HC MAGNESIUM, SERUM Routine 05/13/2021 5 :28 PM EDT BASIC METABOLIC PANEL (NON-FASTING) Routine 05/13/2021 5:28 PM EDT POCT GLUCOSE Routine 05/13/2021 5:27 PM EDT documented in this encounter Results * POCT Glucose (05/15/2021 7:43 AM EDT) Pathologist [facility] POC Glucose 121 65 - 199 mg/dL [facility] Comment: Supplemental ranges: <140 mg/dL before meals <180 mg/dL all other times of the day Blood 05/15/2021 7:43 AM EDT 05/15/2021 7:43 AM EDT Debbi Zimmer MD POINT OF CARE TEST O RDERABLES [facility] [place] [address] * Differential, Automated (05/15/2021 3:58 AM EDT) Pathologist [facility] Neutrophils % 39.5 % [facility] Neutr Abs (ANC) 2.63 1.70 - 6.10 x10(3)/[facility] Lymphocytes % 47.0 % [facility] Lymphocytes Abs 3.1 0.9 - 3.2 x10(3)/[facility] Monocytes % 10.9 % [facility] Monocyte Abs 0.7 0.3 - 0.9 x10(3)/[facility] Eosinophils % 1.9 % [facility] Eosinophils Abs 0.1 0.0 - 0.4 x10(3)/[facility] Basophils % 0.4 % [facility] Basophils Abs 0.0 0.0 - 0.1 x10(3)/[facility] Immature Gran % 0.30 % [facility] Comment: Immature granulocytes(IG's)percentage and absolute count will include metamyelocytes, myelocytes, and promyelocytes. Blood smears from CBCs yielding IG's will be scanned manually for concordance. If this scan disagrees with the automated IG or if promyelocytes are noted, a manual differential will be performed. Anya Gran Abs 0.02 0.00 - 0.04 x10(3)/[facility] Blood 05/15/2021 3:58 AM EDT 05/15/2021 4:07 AM EDT Narrative Resulting Agency Comment Spec In Lab Criselda Sher MD HEMATOLOGY ORDERABLE S Performing Organization Address City/State/[facility] Co de Phone Number [facility] [place] [address] * (ABNORMAL) Hemogram (05/15/2021 3:58 AM EDT) WBC 6.7 4.0 - 9.5 x10(3)/[facility] RBC 3.28(L) 4.00 - 5.21 x10(6)/[facility] Hemoglobin 10.0(L) 11.7 - 15.5 gm/dL [facility] Hematocrit 30.0(L) 35.7 - 45.8 % [facility] MCV 91.5 82.6 - 94.4 fL [facility] MCH 30.5 27.1 - 32.0 pg [facility] MCHC 33.3 31.7 - 35.0 gm/dL [facility] Platelets 239 145 - 357 x10(3)/[facility] RDWSD 44.1 37.0 - 46.0 fL [facility] RDWCV 13.3 11.5 - 14.1 % [facility] MPV 10.3 7.6 - 12.9 fL [facility] nRBC % Auto 0.0 % [facility] nRBC Abs Auto 0.000 0.000 - 0.000 x10(3)/mcL [facility] Blood 05/15/2021 3:58 AM EDT 05/15/2021 4:07 AM EDT Narrative Resulting Agency Comment Spec In Lab Criselda Sher MD HEMATOLOGY ORDERABLE S Performing Organization Address City/[facility]/ZIP Co de Phone Number [facility] [place] [address] * Magnesium (05/15/2021 3:58 AM EDT) Magnesium 0.89 0.69 - 1.07 mmol/L [facility] Blood 05/15/2021 3:58 AM EDT 05/15/2021 4:07 AM EDT Narrative Resulting Agency Comment Spec In Lab Debbi Zimmer MD CHEMISTRY ORDERABLES Performing Organization Address [facility] Co de Phone Number [facility] [place] [address] * (ABNORMAL) BMP w/fasting Glucose (05/15/2021 3:58 AM EDT) Glucose Fasting 100(H) 65 - 99 mg/dL [facility] Comment: ?Fasting* Glucose Interpretive Criteria Normal ?65-99 mg/dL Impaired Fasting glucose ?100-125 mg/dL Consistent with Diabetes Mellitus ? >or= 126 mg/dL *Fasting is defined as no caloric intake for at least 8 hours In the absence of unequivocal hyperglycemia a plasma glucose value of >or= 126 mg/dL should be repeated on a subsequent day. Diagnosis and Classification of Diabetes Mellitus, Position Statement from the [place] Diabetes Association. ??Diabetes Care, Volume 33, Supplement 1, Oct 2009 BUN 38(H) 8 - 18 mg/dL [facility] Creatinine 1.60(H) 0.70 - 1.20 mg/dL [facility] Sodium 137 135 - 145 mmol/L [facility] mmol/L [facility] CO2 25 22 - 31 mmol/L [facility] Anion Gap 9 5 - 15 mmol/L [facility] Calcium 10.3 8.5 - 10.5 mg/dL [facility] Estimated GFR 33(L) >=60 mL/min/1. 73 m?? [facility] Comment: This patient? s estimated glomerular filtration rate (eGFR) is between 33 mL/min/1.73 m2 (patients with less muscle mass) and 38 mL/min/1.73 m2 (patients with more muscle mass) [...] and symptoms in addition to eGFR. Blood 05/15/2021 3:58 AM EDT 05/15/2021 4:07 AM EDT Narrative Resulting Agency Comment Spec In Lab Debbi Zimmer MD CHEMISTRY ORDERABLES [facility] [place] [address] * POCT Glucose (05/14/2021 8:09 PM EDT) POC Glucose 130 65 - 199 mg/dL [facility] Comment: Supplemental ranges: <140 mg/dL before meals <180 mg/dL all other times of the day Blood 05/14/2021 8:09 PM EDT 05/14/2021 8:09 PM EDT Debbi Zimmer MD POINT OF CARE TEST O RDERABLES Performing Organization Address [facility] de Phone Number [facility] [place] [address] * POCT Glucose (05/14/2021 4:54 PM EDT) Pathologist [facility] POC Glucose 113 65 - 199 mg/dL [facility] Comment: Supplemental ranges: <140 mg/dL before meals <180 mg/dL all other times of the day Blood 05/14/2021 4:54 PM EDT 05/14/2021 4:54 PM EDT Debbi Zimmer MD POINT OF CARE TEST O RDERAMARIE Performing Organization Address [facility] de Phone Number [facility] [place] [address] * ECHO LMTD W CONTRAST W LMTD SPEC DOPP COLOR DOPP (05/14/2021 1:34 PM EDT) Pathologist [facility] EF 55-60 HEART[employer] SYSTEM Anatomical Region Laterality Modality Other 05/14/2021 Narrative 05/14/2021 3:19 PM EDT Procedure: ?Transthoracic Echocardiogram Patient: ?AMISHA CASTILLO I ? (Age): 1955(66y) Med Rec#: ? [id number] ?Sex: ?F ? [place] Loc: ? [facility] [place]Ht / Wt: ??(cm)/ (kg) ? Pt. Loc: ?Adult Floor ? Study Date: ?? 05/14/2021 ?Pt. Type: Inpatient Tape: ? 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 126/55 SUMMARY: 1. Limited study for ventricular function. [...] wall motion abnormalities are no longer present. Findings ? : Left Ventricle: ? There is normal global left ventricular systolic function. ??Ejection fraction is estimated to be 55%.-60%. ?There are no left ventricular segmental wall motion abnormalities. Right Ventricle: ? The right ventricle is mildly dilated. ?Right ventricular global systolic function is mildly reduced. ?Pulmonary artery hypertension could not be assessed due to inadequate tricuspid regurgitation jet. Aortic Valve: ? The aortic valve is tricuspid. ?The aortic valve leaflets are mildly thickened. ?Mild aortic leaflet calcification is visualized. ?There is mild aortic valve stenosis. ?There is no evidence of aortic regurgitation. Mitral Valve: ? There is trace mitral regurgitation present. Tricuspid Valve: ? The tricuspid valve leaflets are morphologically normal. ?There is no tricuspid valve stenosis. ?There is trace tricuspid regurgitation present. Pulmonic Valve: ? The pulmonic valve appears normal. Pericardium: ? There is no pericardial effusion. ?A pericardial fat pad is visualized. Pulmonary Artery: ? The main pulmonary artery appears normal. Chambers 2D ?Value ?Units (Range) ? IVSd (2D) ? 1 ?cm ? LVPWd (2D) ?1.2 ?cm ? IVS:LVPW ratio (2D) 0.83 ? ratio ? RWT (2D) ?0.55 ? ratio ? LVIDd (2D) ?4.02 ? cm ? Volumes/Mass ?Value ?Units (Range) ? LV mass (2D) ?147.09 ? g ? This report has been electronically signed by: Mauro Waite MD ? 05/14/2021 15:19:02 Images reviewed and interpretation verified [facility] Procedure Note Mauro Waite MD - 05/14/2021 Procedure: Transthoracic Echocardiogram Patient: AMISHA SALAZAR(Age): 1955(66y) Med Rec#: [id number] Sex: F [place] Loc[place] [facility] [place] Ht / Wt: (cm)/ (kg) Pt. Loc: Adult Floor Study Date: 05/14/2021 Pt. 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 Limited study for ventricular function. [...] wall motion abnormalities are no longer present. Findings : Left Ventricle: There is normal global left ventricular systolic function. Ejection fraction is estimated to be 55%.-60%. There are no left ventricular segmental wall motion abnormalities. Right Ventricle: The right ventricle is mildly dilated. Right ventricular global systolic function is mildly reduced. Pulmonary artery hypertension could not be assessed due to inadequate tricuspid regurgitation jet. Aortic Valve: The aortic valve is tricuspid. The aortic valve leaflets are mildly thickened. Mild aortic leaflet calcification is visualized. There is mild aortic valve stenosis. There is no evidence of aortic regurgitation. Mitral Valve: There is trace mitral regurgitation present. Tricuspid Valve: The tricuspid valve leaflets are morphologically normal. There is no tricuspid valve stenosis. There is trace tricuspid regurgitation present. Pulmonic Valve: The pulmonic valve appears normal. Pericardium: There is no pericardial effusion. A pericardial fat pad is visualized. Pulmonary Artery: The main pulmonary artery appears normal. Chambers 2D Value Units (Range) IVSd (2D) 1 cm LVPWd (2D) 1.2 cm IVS:LVPW ratio (2D) 0.83 ratio RWT (2D) 0.55 ratio LVIDd (2D) 4.02 cm Volumes/Mass Value Units (Range) LV mass (2D) 147.09 g This report has been electronically signed by: Mauro Waite MD 05/14/2021 15:19:02 Images reviewed and interpretation verified [facility] Debbi Zimmer MD ECHO ORDERABLES * POCT Glucose (05/14/2021 11:47 AM EDT) POC Glucose 137 65 - 199 mg/dL [facility] Comment: Supplemental ranges: <140 mg/dL before meals <180 mg/dL all other times of the day Blood 05/14/2021 11:4 7 AM EDT 05/14/2021 11:47 AM EDT Debbi Zimmer MD POINT OF CARE TEST O MAUREEN Performing Organization Address [facility] Co de Phone Number [facility] [place] [address] * POCT Glucose (05/14/2021 7:45 AM EDT) POC Glucose 114 65 - 199 mg/dL [facility] Comment: Supplemental ranges: <140 mg/dL before meals <180 mg/dL all other times of the day Blood 05/14/2021 7:45 AM EDT 05/14/2021 7:45 AM EDT Debbi Zimmer MD POINT OF CARE TEST O MAUREEN Performing Organization Address City/[facility]/ZIP Co de Phone Number [facility] [place] [address] * Heparin (unfractionated) Level (05/14/2021 5:12 AM EDT) [facility] Heparin UFH Level 0.64 IU/mL [place] [facility] Comment: Guidelines for therapeutic unfractionated heparin levels are summarized below. Heparin (Anti-Xa) levels should be determined in a plasma sample that has been drawn 6 hours after a dose change i.e., steady-state has been reached. DRUG ?Dosing Schedule ? Target Peak Steady-State ?Heparin (Anti-Xa) Levels (Units/mL) Unfractionated ?Continuous infusion ?0.3-0.7 Heparin ?0.3-0.6 for some neurology indications Blood 05/14/2021 5:12 AM EDT 05/14/2021 5:13 AM EDT Narrative Resulting Agency Comment Spec In Lab Debbi Zimmer MD HEMATOLOGY ORDERABLE S Performing Organization Address City/State/[facility] Co de Phone Number [facility] [place] [address] * (ABNORMAL) Differential, Automated (05/14/2021 5:12 AM EDT) [facility] Neutrophils % 34.7 % [facility] Neutr Abs (ANC) 2.22 1.70 - 6.10 x10(3)/mc L [facility] Lymphocytes % 53.3 % [facility] Lymphocytes Abs 3.4(H) 0.9 - 3.2 x10(3)/mc L [facility] Monocytes % 9.6 % [facility] Monocyte Abs 0.6 0.3 - 0.9 x10(3)/mc L [facility] Eosinophils % 1.7 % [facility] Eosinophils Abs 0.1 0.0 - 0.4 x10(3)/[facility]ATORY Basophils % 0.5 % [facility] Basophils Abs 0.0 0.0 - 0.1 x10(3)/[facility]ORY Immature Gran % 0.20 % [facility] Comment: Immature granulocytes(IG's)percentage and absolute count will include metamyelocytes, myelocytes, and promyelocytes. Blood smears from CBCs yielding IG's will be scanned manually for concordance. If this scan disagrees with the automated IG or if promyelocytes are noted, a manual differential will be performed. Anya Gran Abs 0.01 0.00 - 0.04 x10(3)/[facility] Blood 05/14/2021 5:12 AM EDT 05/14/2021 5:14 AM EDT Narrative Resulting Agency Comment Spec In Lab Criselda Sher MD HEMATOLOGY ORDERABLE S [facility] [place] [address] * (ABNORMAL) Hemogram (05/14/2021 5:12 AM EDT) WBC 6.4 4.0 - 9.5 x10(3)/[facility] RBC 3.52(L) 4.00 - 5.21 x10(6)/[facility] Hemoglobin 10.7(L) 11.7 - 15.5 gm/dL [facility] Hematocrit 32.3(L) 35.7 - 45.8 % [facility] MCV 91.8 82.6 - 94.4 fL [facility] MCH 30.4 27.1 - 32.0 pg [facility] MCHC 33.1 31.7 - 35.0 gm/dL [facility] Platelets 223 145 - 357 x10(3)/[facility] RDWSD 44.3 37.0 - 46.0 [facility] RDWCV 13.3 11.5 - 14.1 % [facility] MPV 10.1 7.6 - 12.9 [facility] nRBC % Auto 0.0 % [facility] nRBC Abs Auto 0.000 0.000 - 0.000 x10(3)/[facility] Blood 05/14/2021 5:12 AM EDT 05/14/2021 5:14 AM EDT Narrative Resulting Agency Comment Spec In Lab Criselda Sher MD HEMATOLOGY ORDERABLE S Performing Organization Address City/[facility]/ZIP Co de Phone Number [facility] [place] [address] * Magnesium (05/14/2021 5:12 AM EDT) Magnesium 0.97 0.69 - 1.07 mmol/L [facility] Blood 05/14/2021 5:12 AM EDT 05/14/2021 5:13 AM EDT Narrative Resulting Agency Comment Spec In Lab Debbi Zimmer MD CHEMISTRY ORDERABLES Performing Organization Address [facility]/ZIP Co de Phone Number [facility] [place] [address] * (ABNORMAL) BMP w/fasting Glucose (05/14/2021 5:12 AM EDT) Glucose Fasting 95 65 - 99 mg/dL [facility] Comment: ?Fasting* Glucose Interpretive Criteria Normal ?65-99 mg/dL Impaired Fasting glucose ?100-125 mg/dL Consistent with Diabetes Mellitus ? >or= 126 mg/dL *Fasting is defined as no caloric intake for at least 8 hours In the absence of unequivocal hyperglycemia a plasma glucose value of >or= 126 mg/dL should be repeated on a subsequent day. Diagnosis and Classification of Diabetes Mellitus, Position Statement from the [place] Diabetes Association. ??Diabetes Care, Volume 33, Supplement 1, Oct 2009 BUN 35(H) 8 - 18 mg/dL [facility] Creatinine 1.53(H) 0.70 - 1.20 mg/dL [facility] Sodium 138 135 - 145 mmol/L [facility] Potassium 4.4 3.5 - 5.0 mmol/L [facility] Comment: Please note: ??Patients with WBC >100,000 may have falsely elevated Potassium levels. ??For accurate Potassium quantification in these patients send serum separator tube (gold top) for subsequent determinations. ??Contact the Clinical Chemistry Laboratory if there are any questions. Chloride 102 98 - 107 mmol/L [facility] CO2 25 22 - 31 mmol/L [facility] Anion Gap 11 5 - 15 mmol/L [facility] Calcium 10.4 8.5 - 10.5 mg/dL [facility] Estimated GFR 35(L) >=60 mL/min/1. 73 m?? [facility] Comment: This patient? s estimated glomerular filtration rate (eGFR) is between 35 mL/min/1.73 m2 (patients with less muscle mass) and 40 mL/min/1.73 m2 (patients with more muscle mass) [...] and symptoms in addition to eGFR. Blood 05/14/2021 5:12 AM EDT 05/14/2021 5:13 AM EDT Narrative Resulting Agency Comment Spec In Lab Debbi Zimmer MD CHEMISTRY ORDERABLES Performing Organization Address City/[facility]/ZIP Co de Phone Number [facility] [place] [address] * LDL Cholesterol, Direct (05/14/2021 5:12 AM EDT) LDL Chol Direct 75 mg/dL [facility] Comment: Lowest Risk: <100 mg/dL Lower Risk: 100-129 mg/dL Borderline High Risk: 130-159 mg/dL High Risk: 160-189 mg/dL Very High Risk: >rl=310 mg/dL Blood 05/14/2021 5:12 AM EDT 05/14/2021 5:13 AM EDT Narrative Resulting Agency Comment Spec In Lab Debbi Zimmer MD CHEMISTRY ORDERABLES Performing Organization Address [facility] Co de Phone Number [facility] [place] [address] * (ABNORMAL) Hemoglobin A1c (05/14/2021 5:12 AM EDT) Pathologist [facility] Hemoglobin A1C 6.6(H) 4.3 - 5.6 % [facility] Comment: Reference Range: 4.3 - [...] 1, S67-74 Est Avg Gluc 144 mg/dL [facility] Comment: eAG equivalents for HbA1c percentages: [...] into estimated average glucose values. ??Diabetes Care 2008:31(8):9989-8893. Blood 05/14/2021 5:12 AM EDT 05/14/2021 5:14 AM EDT Narrative Resulting Agency Comment Spec In Lab Debbi Zimmer MD CHEMISTRY ORDERABLES [facility] [place] [id number] * Lipid Panel (Reflex Direct LDL) (05/14/2021 5:12 AM EDT) Chol, Total 149 mg/dL [facility] Comment: Lower Risk: <200 mg/dL Average Risk: 200-239 mg/dL Higher Risk: >ss=519 mg/dL Triglycerides 269 mg/dL [facility] Comment: Average Risk/Lower Risk: <150 mg/dL Borderline High Risk: 150-199 mg/dL High Risk: 200-499 mg/dL Very High Risk: >os=539 mg/dL HDL 40 mg/dL [facility] Comment: Males: ?? Higher Risk: <40 mg/dL Females: ?? Higher Risk: <50 mg/dL LDL Cholesterol 55 mg/dL [facility] Comment: Lowest Risk: <100 mg/dL Lower Risk: 100-129 mg/dL Borderline High Risk: 130-159 mg/dL High Risk: 160-189 mg/dL Very High Risk: >mt=109 mg/dL Chol/HDL Ratio 3.7 ratio [facility] Lipid Interpretation See Note [facility] Comment: Lipid management should be guided by a patient? s ASCVD risk, goals and preferences. ACC/AHA Guidelines recommend high intensity statin if clinical ASCVD or LDL greater than or equal to 190 mg/dL. http://[employer].com/JEH-UBS-Yazteqnsw Adults aged 40-75 with LDL 70-189 mg/dL should have their 10 year ASCVD risk estimated with the ACC/AHA ASCVD risk civil estimator http://tools.acc.org/SRKQV-Wrxw-Swnwqjgyp/ Statin should be discussed if risk greater [...] In Lab Debbi Zimmer MD CHEMISTRY ORDERABLES [facility] [place] [address] * Troponin (05/13/2021 11:34 PM EDT) Troponin-T <0.01 0.00 - 0.00 ng/mL [facility] Comment: The 99th percentile for Troponin T is less than 0.01 ng/mL, any detectable cTnT concentration using this assay should be considered elevated. According to the third universal definition of myocardial infarction the following criteria with a clinical presentation consistent with acute myocardial ischemia meets the diagnosis for a myocardial infarction ([place]). Detection of a rise and/or fall of cTnT, with at least one value greater than the 99th percentile (> or = 0.01) and with at least one of the following ?? Symptoms of ischemia ?? New or presumed new significant [id number] wave (ST-T) changes or new left bundle branch block (LBBB) ?? Development of pathologic Q waves in the ECG ?? Imaging evidence of new loss of viable myocardium or new regional wall motion abnormality ?? Identification of an intracoronary thrombus by angiography or autopsy Samples for cTnT testing should be obtained serially upon first assessment and again 3 to 6 hours later. If the clinical suspicion is high and previous samples have been negative an additional sample may be indicated. Reference: Third [place] Definition of Myocardial Infarction. Journal of the [place] [employer] 2012;60:1581-98 Blood 05/13/2021 11:3 4 PM EDT 05/13/2021 11:43 PM EDT Narrative Resulting Agency Comment Spec In Lab Debbi Zimmer MD CHEMISTRY ORDERABLES Performing Organization Address [facility] Co de Phone Number [facility] [place] [address] * Lavender Tube HOLD (05/13/2021 11:09 PM EDT) Lavender Hold Sample in lab. [facility] Blood Venous Draw / Unknown 05/13/2021 11:09 PM EDT 05/13/2021 11:24 PM EDT Criselda Sher MD HEMATOLOGY ORDERABLE S Performing Organization Address [facility] Co de Phone Number [facility] [place] [address] * Heparin (unfractionated) Level (05/13/2021 11:09 PM EDT) Heparin UFH Level 0.48 IU/mL [facility] Comment: Guidelines for therapeutic unfractionated heparin levels are summarized below. Heparin (Anti-Xa) levels should be determined in a plasma sample that has been drawn 6 hours after a dose change i.e., steady-state has been reached. DRUG ?Dosing Schedule ? Target Peak Steady-State ?Heparin (Anti-Xa) Levels (Units/mL) Unfractionated ?Continuous infusion ?0.3-0.7 Heparin ?0.3-0.6 for some neurology indications Blood 05/13/2021 11:0 9 PM EDT 05/13/2021 11:14 PM EDT Narrative Resulting Agency Comment Spec In Lab Debbi Zimmer MD HEMATOLOGY ORDERABLE S Performing Organization Address [facility] Co de Phone Number [facility] [place] [address] * POCT Glucose (05/13/2021 8:49 PM EDT) [facility] POC Glucose 112 65 - 199 mg/dL [facility] Comment: Supplemental ranges: <140 mg/dL before meals <180 mg/dL all other times of the day Blood 05/13/2021 8:49 PM EDT 05/13/2021 8:49 PM EDT Debbi Zimmer MD POINT OF CARE TEST O RDERABLES Performing Organization Address [facility] Co de Phone Number [facility] [place] [address] * Differential, Automated (05/13/2021 5:28 PM EDT) [facility] Neutrophils % 40.3 % [facility] Neutr Abs (ANC) 2.48 1.70 - 6.10 x10(3)/[facility] LABORATORY Lymphocytes % 51.0 % [facility] Lymphocytes Abs 3.1 0.9 - 3.2 x10(3)/[facility] LABORATORY Monocytes % 6.8 % [facility] Monocyte Abs 0.4 0.3 - 0.9 x10(3)/[facility] LABORATORY Eosinophils % 1.1 % [facility] Eosinophils Abs 0.1 0.0 - 0.4 x10(3)/[facility] LABORATORY Basophils % 0.3 % [facility] Basophils Abs 0.0 0.0 - 0.1 x10(3)/[facility] LABORATORY Immature Gran % 0.50 % [facility] Comment: Immature granulocytes(IG's)percentage and absolute count will include metamyelocytes, myelocytes, and promyelocytes. Blood smears from CBCs yielding IG's will be scanned manually for concordance. If this scan disagrees with the automated IG or if promyelocytes are noted, a manual differential will be performed. Anya Gran Abs 0.03 0.00 - 0.04 x10(3)/[facility] LABORATORY Blood 05/13/2021 5:28 PM EDT 05/13/2021 6:28 PM EDT Narrative Resulting Agency Comment Spec In Lab Criselda Sher MD HEMATOLOGY ORDERABLE S [facility] [place] [address] * (ABNORMAL) Hemogram (05/13/2021 5:28 PM EDT) WBC 6.2 4.0 - 9.5 x10(3)/[facility] LABORATORY RBC 3.47(L) 4.00 - 5.21 x10(6)/[facility] LAB[facility]ATORY Hemoglobin 10.3(L) 11.7 - 15.5 gm/dL [facility] Hematocrit 32.2(L) 35.7 - 45.8 % [facility] MCV 92.8 82.6 - 94.4 fL [facility] MCH 29.7 27.1 - 32.0 pg [facility] MCHC 32.0 31.7 - 35.0 gm/dL [facility] Platelets 236 145 - 357 x10(3)/[facility] RDWSD 44.3 37.0 - 46.0 [facility] LABORATORY RDWCV 13.3 11.5 - 14.1 % [facility] MPV 10.4 7.6 - 12.9 [facility] LABORATORY nRBC % Auto 0.0 % [facility] nRBC Abs Auto 0.000 0.000 - 0.000 x10(3)/[facility] LABORATORY Blood 05/13/2021 5:28 PM EDT 05/13/2021 6:28 PM EDT Narrative Resulting Agency Comment Spec In Lab Criselda Sher MD HEMATOLOGY ORDERABLE S Performing Organization Address City/State/[facility] Co de Phone Number [facility] [place] [address] * Heparin (unfractionated) Level (05/13/2021 5:28 PM EDT) Heparin UFH Level 0.37 IU/mL [facility] Comment: Specimen drawn more than one hour prior to testing. Results may not be reliable for heparin monitoring. Result may be falsely low. Guidelines for therapeutic unfractionated heparin levels are summarized below. Heparin (Anti-Xa) levels should be determined in a plasma sample that has been drawn 6 hours after a dose change i.e., steady-state has been reached. DRUG ?Dosing Schedule ? Target Peak Steady-State ?Heparin (Anti-Xa) Levels (Units/mL) Unfractionated ?Continuous infusion ?0.3-0.7 Heparin ?0.3-0.6 for some neurology indications Blood 05/13/2021 5:28 PM EDT 05/13/2021 6:28 PM EDT Narrative Resulting Agency Comment Spec In Lab Debbi Zmimer MD HEMATOLOGY ORDERABLE S Performing Organization Address [facility]/ZIP Co de Phone Number [facility] [place] [address] * Troponin (05/13/2021 5:28 PM EDT) Troponin-T <0.01 0.00 - 0.00 ng/mL [facility] Comment: The 99th percentile for Troponin T is less than 0.01 ng/mL, any detectable cTnT concentration using this assay should be considered elevated. According to the third universal definition of myocardial infarction the following criteria with a clinical presentation consistent with acute myocardial ischemia meets the diagnosis for a myocardial infarction (GA). Detection of a rise and/or fall of cTnT, with at least one value greater than the 99th percentile (> or = 0.01) and with at least one of the following ?? Symptoms of ischemia ?? New or presumed new significant IA-hrewmdm-D wave (ST-T) changes or new left bundle branch block (LBBB) ?? Development of pathologic Q waves in the ECG ?? Imaging evidence of new loss of viable myocardium or new regional wall motion abnormality ?? Identification of an intracoronary thrombus by angiography or autopsy Samples for cTnT testing should be obtained serially upon first assessment and again 3 to 6 hours later. If the clinical suspicion is high and previous samples have been negative an additional sample may be indicated. Reference: Third Mylo Definition of Myocardial Infarction. Journal of the [place] [employer] 2012;60:1581-98 Blood 05/13/2021 5:28 PM EDT 05/13/2021 6:28 PM EDT Narrative Resulting Agency Comment Spec In Lab Debbi Zimmer MD CHEMISTRY ORDERABLES Performing Organization Address City/[facility]/ZIP Co de Phone Number [facility] [place] [address] * (ABNORMAL) pro-Brain Natriuretic Peptide (05/13/2021 5:28 PM EDT) ProBNP 463(H) <=124 pg/mL [facility] Blood 05/13/2021 5:28 PM EDT 05/13/2021 6:28 PM EDT Narrative Resulting Agency Comment Spec In Lab Debbi Zimmer MD CHEMISTRY ORDERABLES [facility] [place] [address] * TSH (05/13/2021 5:28 PM EDT) Pathologist [facility] TSH 1.25 0.27 - 4.20 mcIU/mL [facility] Comment: Reference Interval (mcIU/mL): Females: ??First Trimester: 0.23-3.88 ??Second Trimester: 0.22-3.90 ??Third Trimester: 0.44-4.66 Blood 05/13/2021 5:28 PM EDT 05/13/2021 6:28 PM EDT Narrative Resulting Agency Comment Spec In Lab Debbi Zimmer MD CHEMISTRY ORDERABLES Performing Organization Address City/[facility]/ZIP Co de Phone Number [facility] [place] [address] * Magnesium (05/13/2021 5:28 PM EDT) Magnesium 0.82 0.69 - 1.07 mmol/L [facility] Blood 05/13/2021 5:28 PM EDT 05/13/2021 6:28 PM EDT Narrative Resulting Agency Comment Spec In Lab Debbi Zimmer MD CHEMISTRY ORDERABLES [facility] [place] [address] * (ABNORMAL) Basic Metabolic Panel (non-fasting) (05/13/2021 5:28 PM EDT) Glucose Lvl 95 65 - 199 mg/dL [facility] Comment:Diabetes: >=200 mg/d L plus symptoms BUN 38(H) 8 - 18 mg/dL [facility] Creatinine 1.46(H) 0.70 - 1.20 mg/dL [facility] Sodium 135 135 - 145 mmol/L [facility] Potassium 5.0 3.5 - 5.0 mmol/L [facility] Comment: Please note: ??Patients with WBC >100,000 may have falsely elevated Potassium levels. ??For accurate Potassium quantification in these patients send serum separator tube (gold top) for subsequent determinations. ??Contact the Clinical Chemistry Laboratory if there are any questions. Chloride 102 98 - 107 mmol/L [facility] CO2 17(L) 22 - 31 mmol/L [facility] Anion Gap 16(H) 5 - 15 mmol/L [facility] Calcium 10.1 8.5 - 10.5 mg/dL [facility] Estimated GFR 37(L) >=60 mL/min/1. 73 m?? [facility] Comment: This patient? s estimated glomerular filtration rate (eGFR) is between 37 mL/min/1.73 m2 (patients with less muscle mass) and 42 mL/min/1.73 m2 (patients with more muscle mass) [...] and symptoms in addition to eGFR. Blood 05/13/2021 5:28 PM EDT 05/13/2021 6:28 PM EDT Narrative Resulting Agency Comment Spec In Lab Debbi Zimmer MD CHEMISTRY ORDERABLES [facility] [place] [address] * POCT Glucose (05/13/2021 5:27 PM EDT) POC Glucose 106 65 - 199 mg/dL [facility] Comment: Supplemental ranges: <140 mg/dL before meals <180 mg/dL all other times of the day Blood 05/13/2021 5:27 PM EDT 05/13/2021 5:27 PM EDT Debbi Zimmer MD POINT OF CARE TEST O RDERABLES Performing Organization Address [facility] Co de Phone Number [facility] [place] [address] documented in this encounter Visit Diagnoses Diagnosis Coronary artery disease, unspecified vessel or lesion type, unspecified whether angina present, unspecified whether havasupai or transplanted heart Acute renal failure superimposed on chronic kidney disease, unspecified CKD stage, unspecified acute renal failure type Unstable angina Intermediate coronary syndrome Left lumbar radiculopathy Thoracic or lumbosacral neuritis or radiculitis, unspecified documented in this encounter Admitting Diagnoses Diagnosis Unstable angina Intermediate coronary syndrome documented in this encounter Administered Medications Inactive Administered Medications - up to 3 most recent administrations Medication Order MAR Action Action Date Dose Rate Site acetaminophen (Tylenol) tablet 650 mg 650 mg, Oral, EVERY 4 HOURS PRN, Starting on Wed05/13/21 at 1644, Until Wed05/13/21 at 2139, Pain, Maximum dose of acetaminophen is 4000 mg from all sources in 24 hours. When ordered for pain, acetaminophen should be given even when other ordered pain medications are indicated. , Routine Given 05/13/2021 9:17 PM EDT 650 mg acetaminophen (Tylenol) tablet 975 mg 975 mg, Oral, EVERY 8 HOURS PRN, Starting on Wed05/13/21 at 2139, Until Jodee 05/15/21 at 1318, Pain, Maximum dose of acetaminophen is 4000 mg from all sources in 24 hours. When ordered for pain, acetaminophen should be given even when other ordered pain medications are indicated. , Routine Given 05/15/2021 8:40 AM EDT 975 mg Given 05/14/2021 8:14 PM EDT 975 mg Given 05/14/2021 8:41 AM EDT 975 mg aspirin chewable tablet 81 mg 81 mg, Oral, DAILY, First dose on Wed05/13/21 at 1730, Until Discontinued, Routine Given 05/15/2021 8:32 AM EDT 81 mg Given 05/14/2021 8:41 AM EDT 81 mg atorvastatin (Lipitor) tablet 40 mg 40 mg, Oral, EVERY EVENING, First dose on Wed05/13/21 at 1730, Until Discontinued, Routine Given 05/14/2021 5:31 PM EDT 40 mg Given 05/13/2021 5:12 PM EDT 40 mg clopidogreL (Plavix) tablet 75 mg 75 mg, Oral, DAILY, First dose on Wed05/13/21 at 1730, Until Discontinued, Routine Given 05/15/2021 8:33 AM EDT 75 mg Given 05/14/2021 8:41 AM EDT 75 mg dextrose 10% infusion 250 mL, at 1,000 mL/hr, Intravenous, EVERY 30 MIN PRN, Starting on Wed05/13/21 at 1644, Until Wed05/15/21 at 1318, For BG 50-70 mg/dL: Oral treatment preferred:?? If able to drink, give 120 mL Juice or Regular (not diet) soda OR If NPO, give 15 gram glucose 40% oral gel massaged into buccal mucosa OR if unconscious or uncooperative, give 25 gram (250 mL) Dextrose 10% IV over 15 minutes per protocol OR, if no IV access, 1 mg Glucagon IM. For BG less than 50 mg/dL: Oral treatment preferred:?? If able to drink, give 240 mL Juice or Regular (not diet) soda OR If NPO, give 30 gram glucose 40% oral gel massaged in buccal mucosa OR if unconscious or uncooperative, give 25 gram (250 mL) Dextrose 10% IV over 15 minutes per protocol OR, if no IV access, 1 mg Glucagon IM. Recheck BG in 30 minutes. May repeat juice/soda, gel, dextrose or glucagon once per episode. For persistent hypoglycemia, consider longer-acting treatment for the duration of the active insulin. DULoxetine DR (Cymbalta) capsule 30 mg 30 mg, Oral, DAILY, First dose on Wed05/13/21 at 1730, Until Discontinued, Routine Given 05/15/2021 8:32 AM EDT 30 mg Given 05/14/2021 8:41 AM EDT 30 mg gabapentin (Neurontin) capsule 100 mg 100 mg, Oral, DAILY AT NOON, First dose on Wed05/14/21 at 1200, Until Discontinued, Routine Given 05/14/2021 1:18 PM EDT 100 mg gabapentin (Neurontin) capsule 200 mg 200 mg, Oral, 2 TIMES DAILY, First dose on Wed05/13/21 at 2100, Until Discontinued, Routine Given 05/15/2021 8:32 AM EDT 200 mg Given 05/14/2021 8:12 PM EDT 200 mg Given 05/14/2021 8:42 AM EDT 200 mg glucagon (Glucagen) (1 mg/mL) injection solution 1 mg 1 mg, Intramuscular, EVERY 30 MIN PRN, Starting on Wed05/13/21 at 1644, Until Wed05/15/21 at 1318, Low blood sugar, For BG 50-70 mg/dL: Oral treatment preferred:?? If able to drink, give 120 mL Juice or Regular (not diet) soda OR If NPO, give 15 gram glucose 40% oral gel massaged into buccal mucosa OR if unconscious or uncooperative, give 25 gram (250 mL) Dextrose 10% IV over 15 minutes per protocol OR, if no IV access, 1 mg Glucagon IM. For BG less than 50 mg/dL: Oral treatment preferred:?? If able to drink, give 240 mL Juice or Regular (not diet) soda OR If NPO, give 30 gram glucose 40% oral gel massaged in buccal mucosa OR if unconscious or uncooperative, give 25 gram (250 mL) Dextrose 10% IV over 15 minutes per protocol OR, if no IV access, 1 mg Glucagon IM. Recheck BG in 30 minutes. May repeat juice/soda, gel, dextrose or glucagon once per episode. For persistent hypoglycemia, consider longer-acting treatment for the duration of the active insulin., Routine glucose (GLUTOSE) 40% oral geL 15-30 g, Buccal, EVERY 30 MIN PRN, Starting on Wed05/13/21 at 1644, Until Wed05/15/21 at 1318, Low blood sugar, For BG 50-70 mg/dL: Oral treatment preferred:?? If able to drink, give 120 mL Juice or Regular (not diet) soda OR If NPO, give 15 gram glucose 40% oral gel massaged into buccal mucosa OR if unconscious or uncooperative, give 25 gram (250 mL) Dextrose 10% IV over 15 minutes per protocol OR, if no IV access, 1 mg Glucagon IM. For BG less than 50 mg/dL: Oral treatment preferred:?? If able to drink, give 240 mL Juice or Regular (not diet) soda OR If NPO, give 30 gram glucose 40% oral gel massaged in buccal mucosa OR if unconscious or uncooperative, give 25 gram (250 mL) Dextrose 10% IV over 15 minutes per protocol OR, if no IV access, 1 mg Glucagon IM. Recheck BG in 30 minutes. May repeat juice/soda, gel, dextrose or glucagon once per episode. For persistent hypoglycemia, consider longer-acting treatment for the duration of the active insulin. 1 tube contains 15 grams of glucose (net weight of tube = 37.5 grams., Routine heparin (porcine) 25,000 unit/500 mL infusion 1 dose, Starting on Wed05/13/21 at 1629, Until Wed05/13/21 at 1710, Corrie, Rita: cabinet override heparin (porcine) 50 units/mL in sodium chloride 0.45% 500 mL infusion 0-5,000 Units/hr (0-100 mL/hr), Intravenous, CONTINUOUS, Starting on Wed05/13/21 at 1730, Until Wed05/14/21 at 1817, BEGIN infusion at 900 units per hr (12 units/kg/hr). MAX INITIAL infusion rate is 1,000 units/hr. Target Heparin UFH Level (anti-Xa activity) = 0.3 - 0.7 IU/mL Start adjustment schedule 6 hours after starting infusion. If Heparin UFH Level is: - less than 0.1 IU/mL, administer PRN bolus and increase rate by 300 units per hr (4 units/kg/hr) - 0.1 - 0.29 IU/mL, administer PRN bolus and increase rate by 150 units per hr (2 units/kg/hr) - 0.3 - 0.7 IU/mL, No Change - 0.71 - 0.85 IU/mL, decrease rate by 50 units per hr (1 units/kg/hr) - 0.86 - 1.05 IU/mL, stop infusion for 30 minutes, then decrease rate by 150 units per hr (2 units/kg/hr) - Greater than 1.05 IU/mL, stop infusion for 60 minutes, then decrease rate by 200 units per hour (3 units/kg/hr) Repeat Heparin UFH Level 6 hours after initiating heparin. Then 6 hours after each dose adjustment. When 2 consecutive Heparin UFH Level within target range of 0.3 - 0.7 IU/mL, change Heparin UFH Level to once every 24 hours with A.M. labs while on heparin. RN to order required Heparin UFH Level - Per Protocol, Routine Rate/Dose Verify 05/14/2021 5:30 AM EDT 900 Units/hr 18 mL/hr Rate/Dose Verify 05/13/2021 11:26 PM EDT 900 Units/hr 18 m L/hr New Bag 05/13/2021 5:10 PM EDT 900 Units/hr 18 mL/hr insulin glargine (Lantus) (100 unit/mL) subcutaneous injection vial 5 Units 5 Units, Subcutaneous, NIGHTLY, First dose on Wed05/13/21 at 2100, Until Discontinued, Routine Given 05/14/2021 8:19 PM EDT 5 Units Given 05/13/2021 9:18 PM EDT 5 Units insulin lispro (HumaLOG;Admelog) (100 unit/mL) subcutaneous injection vial 0-8 Units 0-8 Units, Subcutaneous, 3 TIMES DAILY WITH MEALS, First dose on Wed05/13/21 at 1730, Until Discontinued, [employer] Give 1 unit for every 10 grams carbohydrate. Hold if not eating or if BG less than 70 mg/dL., Routine Given 05/15/2021 8:40 AM EDT 4 Units Given 05/14/2021 5:31 PM EDT 6 Units Ri ght Arm Given 05/13/2021 6:20 PM EDT 8 Units insulin lispro (HumaLOG;Admelog) (100 unit/mL) subcutaneous injection vial 1-5 Units 1-5 Units, Subcutaneous, 3 TIMES DAILY BEFORE MEALS, First dose on Wed05/13/21 at 1730, Until Discontinued, CORRECTION BOLUS [1-4 Units] Sensitive Sliding Scale (BG in mg/dL): Correction factor 40 (1 unit of insulin is expected to drop the glucose 40 mg/dL) BG 160 - 200 Give 1 unit BG 201 - 240 Give 2 units BG 241 - 280 Give 3 units BG greater than 280, give 4 units and recheck BG in 2 hours. - If recheck BG is LESS than 280, give no insulin and resume schedule - If recheck BG is GREATER than 280, give 4 units and repeat BG in 2 hours (no more than 3 times) & call for new insulin orders. DO NOT hold if NPO, unless specifically directed to do so by written order. Per Blood Glucose Monitoring Policy, re-check a BG of > 240 mg/dL in 2 hours., Routine isosorbide mononitrate CR (Imdur) tablet 30 mg 30 mg, Oral, EVERY MORNING, First dose (after last modification) on Wed05/14/21 at 1130, Until Discontinued, DO NOT CRUSH OR OPEN, Routine Given 05/15/2021 5:34 AM EDT 30 mg Given 05/14/2021 1:17 PM EDT 30 mg magnesium sulfate 1 g in dextrose 5% 100 mL infusion 1 g, Intravenous, ONCE, 1 dose, On Wed05/14/21 at 0045, Administer over 60 Minutes New Bag 05/14/2021 12:18 AM EDT 1 g 100 mL/hr melatonin tablet 6 mg 6 mg, Oral, NIGHTLY, First dose on Wed05/13/21 at 2100, Until Discontinued, Routine Given 05/14/2021 8:13 PM EDT 6 mg Given 05/13/2021 9:18 PM EDT 6 mg metoprolol tartrate (Lopressor) tablet 12.5 mg 12.5 mg, Oral, EVERY 6 HOURS SCHEDULED, First dose on Wed05/13/21 at 1815, Until Discontinued, Routine Given 05/15/2021 5:34 AM EDT 12.5 mg Given 05/15/2021 12:20 AM EDT 12.5 mg Given 05/14/2021 5:31 PM EDT 12.5 mg oxyCODONE (Roxicodone) tablet 2.5 mg 2.5 mg, Oral, ONCE, 1 dose, On Wed05/14/21 at 0130, Routine Given 05/14/2021 1:27 AM EDT 2.5 mg oxyCODONE (Roxicodone) tablet 2.5 mg 2.5 mg, Oral, ONCE, 1 dose, On Wed05/14/21 at 2245, Routine Given 05/14/2021 10:00 PM EDT 2.5 mg pantoprazole EC (Protonix) tablet 40 mg 40 mg, Oral, DAILY, First dose on Wed05/13/21 at 1730, Until Discontinued, DO NOT CRUSH OR OPEN, Routine Given 05/15/2021 9:00 AM EDT 40 mg Given 05/14/2021 8:41 AM EDT 40 mg perflutren protein-A microsphers (Optison) (0.22 mg/mL) injection 3 mL 3 mL, Intravenous, ONCE PRN, 1 dose, Starting on Wed05/14/21 at 1315, Until Wed05/14/21 at 1315, for enhancement of sub-optimal echo images, Echo Lab (Intra-Procedure), Routine Given 05/14/2021 1:15 PM EDT 3 mLs sodium chloride 0.9 % (flush) (BD PosiFlush Normal Saline 0.9) flush 5 mL 5 mL, Intravenous, 2 TIMES DAILY, First dose on Wed05/13/21 at 2100, Until Discontinued, Routine Given 05/15/2021 8:33 AM EDT 5 mLs Given 05/14/2021 8:19 PM EDT 5 mLs Given 05/14/2021 8:42 AM EDT 5 mLs traZODone (Desyrel) tablet 25 mg 25 mg, Oral, NIGHTLY, First dose on Wed05/13/21 at 2100, Until Discontinued, Routine Given 05/14/2021 8:14 PM EDT 25 mg Given 05/13/2021 9:18 PM EDT 25 mg documented in this encounter Active and Recently Administered Medications Times are shown in EDT. Scheduled Medication Order 05/13/2021 05/14/2021 05/15/2021 aspirin chewable tablet 81 mg 81 mg, Oral, DAILY, First dose on Wed05/13/21 at 1730, Until Discontinued, Routine 1710 (Not Given - Provider: Rita Denton RN - Reason: See comment - Comment: already taken per pt report) 0841 (Given - Provider: Supriya Toro RN) 0832 (Given - Provider: Supriya Amaral RN) atorvastatin (Lipitor) tablet 40 mg 40 mg, Oral, EVERY EVENING, First dose on Wed05/13/21 at 1730, Until Discontinued, Routine 1712 (Given - Provider: Rita Denton RN) 1731 (Given - Provider: Supriya Toro RN) clopidogreL (Plavix) tablet 75 mg 75 mg, Oral, DAILY, First dose on Wed05/13/21 at 1730, Until Discontinued, Routine 1710 (Not Given - Provider: Rita Denton RN - Reason: See comment - Comment: taken earlier this AM per pt report) 0841 (Given - Provider: Supriya Toro RN) 0833 (Given - Provider: Supriya Amaral RN) DULoxetine DR (Cymbalta) capsule 30 mg 30 mg, Oral, DAILY, First dose on Wed05/13/21 at 1730, Until Discontinued, Routine 1730 (Not Given - Provider: Rita Denton RN - Reason: See comment - Comment: already taken per pt report) 0841 (Given - Provider: Supriya Toro RN) 0832 (Given - Provider: Supriya Amaral RN) gabapentin (Neurontin) capsule 100 mg 100 mg, Oral, DAILY AT NOON, First dose on Wed05/14/21 at 1200, Until Discontinued, Routine 1318 (Given - Provider: Supriya Toro RN) gabapentin (Neurontin) capsule 200 mg 200 mg, Oral, 2 TIMES DAILY, First dose on Wed05/13/21 at 2100, Until Discontinued, Routine 2117 (Given - Provider: Shannon Rose RN) 0842 (Given - Provider: Supriya Toro RN)2011 (Given - Provider: Jenni Thomas RN) 0832 (Given - Provider: Supriya Amaral RN) insulin glargine (Lantus) (100 unit/mL) subcutaneous injection vial 5 Units 5 Units, Subcutaneous, NIGHTLY, First dose on Wed05/13/21 at 2100, Until Discontinued, Routine 2117 (Given - Provider: Shannon Rose RODERICK) 2019 (Given - Provider: Jenni Thomas, RODERICK) insulin lispro (HumaLOG;Admelog) (100 unit/mL) subcutaneous injection vial 0-8 Units 0-8 Units, Subcutaneous, 3 TIMES DAILY WITH MEALS, First dose on Wed05/13/21 at 1730, Until Discontinued, MEAL ASSOCIATED Give 1 unit for every 10 grams carbohydrate. Hold if not eating or if BG less than 70 mg/dL., Routine 1820 (Given - Provider: Rita Denton RN) 0800 (Not Given - Provider: Supriya Toro RN - Reason: NPO)1200 (Not Given - Provider: Supriya Toro RN - Reason: NPO)1731 (Given - Provider: Supriya Toro RN) 0840 (Given - Provider: Supriya Amaral RN) insulin lispro (HumaLOG;Admelog) (100 unit/mL) subcutaneous injection vial 1-5 Units(Linked Group 1) 1-5 Units, Subcutaneous, 3 TIMES DAILY BEFORE MEALS, First dose on Wed05/13/21 at 1730, Until Discontinued, CORRECTION BOLUS [1-4 Units] Sensitive Sliding Scale (BG in mg/dL): Correction factor 40 (1 unit of insulin is expected to drop the glucose 40 mg/dL) BG 160 - 200 Give 1 unit BG 201 - 240 Give 2 units BG 241 - 280 Give 3 units BG greater than 280, give 4 units and recheck BG in 2 hours. - If recheck BG is LESS than 280, give no insulin and resume schedule - If recheck BG is GREATER than 280, give 4 units and repeat BG in 2 hours (no more than 3 times) & call for new insulin orders. DO NOT hold if NPO, unless specifically directed to do so by written order. Per Blood Glucose Monitoring Policy, re-check a BG of > 240 mg/dL in 2 hours., Routine 1730 (Not Given - Provider: Rita Denton RN - Reason: Order parameters not met) 0730 (Not Given - Provider: Supriya Toro RN - Reason: Order parameters not met)1130 (Not Given - Provider: Supriya Toro RN - Reason: Order parameters not met)1630 (Not Given - Provider: Supriya Toro RN - Reason: Order parameters not met) 0730 (Not Given - Provider: Sherry Walden RN - Reason: Order parameters not met) isosorbide mononitrate CR (Imdur) tablet 30 mg 30 mg, Oral, EVERY MORNING, First dose (after last modification) on Wed05/14/21 at 1130, Until Discontinued, DO NOT CRUSH OR OPEN, Routine 1317 (Given - Provider: Supriya Toro RN) 0534 (Given - Provider: Jenni Thomas RN) magnesium sulfate 1 g in dextrose 5% 100 mL infusion (COMPLETED) 1 g, Intravenous, ONCE, 1 dose, On Wed05/14/21 at 0045, Administer over 60 Minutes 0018 (New Bag - Provider: Shannon Rose RN)0128 (Stopped - Provider: Shannon Rose RN) melatonin tablet 6 mg 6 mg, Oral, NIGHTLY, First dose on Wed05/13/21 at 2100, Until Discontinued, Routine 2117 (Given - Provider: Shannon Rose RN) 2012 (Given - Provider: Jenni Thomas RN) metoprolol tartrate (Lopressor) tablet 12.5 mg 12.5 mg, Oral, EVERY 6 HOURS SCHEDULED, First dose on Wed05/13/21 at 1815, Until Discontinued, Routine 1810 (Given - Provider: Rita Denton RN) 0019 (Given - Provider: Shannon Rose RN)0621 (Given - Provider: Shannon Rose RN)1317 (Given - Provider: Supriya Toro RN)1731 (Given - Provider: Supriya Toro RN) 0020 (Given - Provider: Jenni Thomas, RODERICK)0534 (Given - Provider: Jenni Thomas RN) oxyCODONE (Roxicodone) tablet 2.5 mg (COMPLETED) 2.5 mg, Oral, ONCE, 1 dose, On Wed05/14/21 at 0130, Routine 0127 (Given - Provider: Shannon Rose RN) oxyCODONE (Roxicodone) tablet 2.5 mg (COMPLETED) 2.5 mg, Oral, ONCE, 1 dose, On Wed05/14/21 at 2245, Routine 2200 (Given - Provider: Jenni Thomas RN) pantoprazole EC (Protonix) tablet 40 mg 40 mg, Oral, DAILY, First dose on Wed05/13/21 at 1730, Until Discontinued, DO NOT CRUSH OR OPEN, Routine 1730 (Not Given - Provider: Rita Denton RN - Reason: See comment - Comment: already given per pt report) 0841 (Given - Provider: Supriya Toro RN) 0900 (Given - Provider: Supriya Amaral RN) sodium chloride 0.9 % (flush) (BD PosiFlush Normal Saline 0.9) flush 5 mL 5 mL, Intravenous, 2 TIMES DAILY, First dose on Wed05/13/21 at 2100, Until Discontinued, Routine 2118 (Given - Provider: Shannon Rose RN) 0842 (Given - Provider: Supriya Toro RN)2018 (Given - Provider: Jenni Thomas RN) 08 (Given - Provider: Supriya Amaral RN) traZODone (Desyrel) tablet 25 mg 25 mg, Oral, NIGHTLY, First dose on Wed05/13/21 at 2100, Until Discontinued, Routine 2117 (Given - Provider: Shannon Rose RN) 2013 (Given - Provider: Jenni Thomas RN) Continuous Medication Order 05/13/2021 05/14/2021 05/15/2021 heparin (porcine) 50 units/mL in sodium chloride 0.45% 500 mL infusion (CANCELED)(Linked Group 2) 0-5,000 Units/hr (0-100 mL/hr), Intravenous, CONTINUOUS, Starting on Wed05/13/21 at 1730, Until Wed05/14/21 at 1817, BEGIN infusion at 900 units per hr (12 units/kg/hr). MAX INITIAL infusion rate is 1,000 units/hr. Target Heparin UFH Level (anti-Xa activity) = 0.3 - 0.7 IU/mL Start adjustment schedule 6 hours after starting infusion. If Heparin UFH Level is: - less than 0.1 IU/mL, administer PRN bolus and increase rate by 300 units per hr (4 units/kg/hr) - 0.1 - 0.29 IU/mL, administer PRN bolus and increase rate by 150 units per hr (2 units/kg/hr) - 0.3 - 0.7 IU/mL, No Change - 0.71 - 0.85 IU/mL, decrease rate by 50 units per hr (1 units/kg/hr) - 0.86 - 1.05 IU/mL, stop infusion for 30 minutes, then decrease rate by 150 units per hr (2 units/kg/hr) - Greater than 1.05 IU/mL, stop infusion for 60 minutes, then decrease rate by 200 units per hour (3 units/kg/hr) Repeat Heparin UFH Level 6 hours after initiating heparin. Then 6 hours after each dose adjustment. When 2 consecutive Heparin UFH Level within target range of 0.3 - 0.7 IU/mL, change Heparin UFH Level to once every 24 hours with A.M. labs while on heparin. RN to order required Heparin UFH Level - Per Protocol, Routine 171 (New Bag - Provider: Rita Denotn RN)2326 (Rate/Dose Verify - Provider: Shannon Rose RN) 0530 (Rate/Dose Verify - Provider: Shannon Rose RN)1800 (Stopped - Provider: Jenni Thomas RN) PRN Medication Order 05/13/2021 05/14/2021 05/15/2021 acetaminophen (Tylenol) tablet 650 mg (CANCELED) 650 mg, Oral, EVERY 4 HOURS PRN, Starting on Wed05/13/21 at 1644, Until Wed05/13/21 at 2139, Pain, Maximum dose of acetaminophen is 4000 mg from all sources in 24 hours. When ordered for pain, acetaminophen should be given even when other ordered pain medications are indicated. , Routine 2116 (Given - Provider: Shannon Rose RN) acetaminophen (Tylenol) tablet 975 mg 975 mg, Oral, EVERY 8 HOURS PRN, Starting on Wed05/13/21 at 2139, Until Jodee 05/15/21 at 1318, Pain, Maximum dose of acetaminophen is 4000 mg from all sources in 24 hours. When ordered for pain, acetaminophen should be given even when other ordered pain medications are indicated. , Routine 0841 (Given - Provider: Supriya Toro, RODERICK)2013 (Given - Provider: Jenni Thomas, RODERICK) 0840 (Given - Provider: Supriya Amaral RN) dextrose 10% infusion(Linked Group 3) 250 mL, at 1,000 mL/hr, Intravenous, EVERY 30 MIN PRN, Starting on Wed05/13/21 at 1644, Until Wed05/15/21 at 1318, For BG 50-70 mg/dL: Oral treatment preferred:?? If able to drink, give 120 mL Juice or Regular (not diet) soda OR If NPO, give 15 gram glucose 40% oral gel massaged into buccal mucosa OR if unconscious or uncooperative, give 25 gram (250 mL) Dextrose 10% IV over 15 minutes per protocol OR, if no IV access, 1 mg Glucagon IM. For BG less than 50 mg/dL: Oral treatment preferred:?? If able to drink, give 240 mL Juice or Regular (not diet) soda OR If NPO, give 30 gram glucose 40% oral gel massaged in buccal mucosa OR if unconscious or uncooperative, give 25 gram (250 mL) Dextrose 10% IV over 15 minutes per protocol OR, if no IV access, 1 mg Glucagon IM. Recheck BG in 30 minutes. May repeat juice/soda, gel, dextrose or glucagon once per episode. For persistent hypoglycemia, consider longer-acting treatment for the duration of the active insulin. glucagon (Glucagen) (1 mg/mL) injection solution 1 mg(Linked Group 3) 1 mg, Intramuscular, EVERY 30 MIN PRN, Starting on Wed05/13/21 at 1644, Until Wed05/15/21 at 1318, Low blood sugar, For BG 50-70 mg/dL: Oral treatment preferred:?? If able to drink, give 120 mL Juice or Regular (not diet) soda OR If NPO, give 15 gram glucose 40% oral gel massaged into buccal mucosa OR if unconscious or uncooperative, give 25 gram (250 mL) Dextrose 10% IV over 15 minutes per protocol OR, if no IV access, 1 mg Glucagon IM. For BG less than 50 mg/dL: Oral treatment preferred:?? If able to drink, give 240 mL Juice or Regular (not diet) soda OR If NPO, give 30 gram glucose 40% oral gel massaged in buccal mucosa OR if unconscious or uncooperative, give 25 gram (250 mL) Dextrose 10% IV over 15 minutes per protocol OR, if no IV access, 1 mg Glucagon IM. Recheck BG in 30 minutes. May repeat juice/soda, gel, dextrose or glucagon once per episode. For persistent hypoglycemia, consider longer-acting treatment for the duration of the active insulin., Routine glucose (GLUTOSE) 40% oral geL(Linked Group 3) 15-30 g, Buccal, EVERY 30 MIN PRN, Starting on Wed05/13/21 at 1644, Until Wed05/15/21 at 1318, Low blood sugar, For BG 50-70 mg/dL: Oral treatment preferred:?? If able to drink, give 120 mL Juice or Regular (not diet) soda OR If NPO, give 15 gram glucose 40% oral gel massaged into buccal mucosa OR if unconscious or uncooperative, give 25 gram (250 mL) Dextrose 10% IV over 15 minutes per protocol OR, if no IV access, 1 mg Glucagon IM. For BG less than 50 mg/dL: Oral treatment preferred:?? If able to drink, give 240 mL Juice or Regular (not diet) soda OR If NPO, give 30 gram glucose 40% oral gel massaged in buccal mucosa OR if unconscious or uncooperative, give 25 gram (250 mL) Dextrose 10% IV over 15 minutes per protocol OR, if no IV access, 1 mg Glucagon IM. Recheck BG in 30 minutes. May repeat juice/soda, gel, dextrose or glucagon once per episode. For persistent hypoglycemia, consider longer-acting treatment for the duration of the active insulin. 1 tube contains 15 grams of glucose (net weight of tube = 37.5 grams., Routine lidocaine (Xylocaine) 1% (10 mg/mL) injection 3 mg 3 mg (0.3 mL), Subcutaneous, ONCE PRN, 1 dose, Starting on Wed05/13/21 at 1644, Until Jodee 05/15/21 at 1318, for discomfort with PIV insertion, Routine nitroGLYcerin (Nitrostat) disintegrating tablet 0.4 mg 0.4 mg, Sublingual, EVERY 5 MIN PRN, Starting on Wed05/13/21 at 1644, Until Wed05/15/21 at 1318, Chest pain, May repeat every 5 minutes for a total of three doses. Notify provider if chest pain not relieved with nitroglycerin. Do not administer nitroglycerin if the patient has received or taken phosphodiesterase (PDE-5) inhibitors such as sildenafil, tadalafil or vardenafil within the last 24 to 72 hours., Routine perflutren protein-A microsphers (Optison) (0.22 mg/mL) injection 3 mL (COMPLETED) 3 mL, Intravenous, ONCE PRN, 1 dose, Starting on Wed05/14/21 at 1315, Until Wed05/14/21 at 1315, for enhancement of sub-optimal echo images, Echo Lab (Intra-Procedure), Routine 1315 (Given - Provider: Simran Basilio) polyethylene glycoL (Miralax) packet 17 g 17 g, Oral, DAILY PRN, Starting on Wed05/13/21 at 1644, Until Wed05/15/21 at 1318, Constipation, Routine sodium chloride 0.9 % (flush) (BD PosiFlush Normal Saline 0.9) flush 5-20 mL 5-20 mL, Intravenous, EVERY 1 MIN PRN, Starting on Wed05/13/21 at 1644, Until Wed05/15/21 at 1318, flush, Flush pertains to all indwelling lines. Flush per protocol found in the job aid using the link provided on this medication record., Routine Linked Groups Order Group 1: POCT Fingerstick Glucose (CANCELED) Routine, 4 TIMES DAILY BEFORE MEALS & AT BEDTIME, First occurrence on Wed05/13/21 at 1700, Until Specified, Consider choosing FOUR TIMES A DAY BEFORE MEALS AND AT BEDTIME as frequency for: Patients who have good hypoglycemia awareness: -Patients who are eating meals during the day and sleeping at night -Patient who are otherwise stable And insulin lispro (HumaLOG;Admelog) (100 unit/mL) subcutaneous injection vial 1-5 UnitsJump to med 1-5 Units, Subcutaneous, 3 TIMES DAILY BEFORE MEALS, First dose on Wed05/13/21 at 1730, Until Discontinued, CORRECTION BOLUS [1-4 Units] Sensitive Sliding Scale (BG in mg/dL): Correction factor 40 (1 unit of insulin is expected to drop the glucose 40 mg/dL) BG 160 - 200 Give 1 unit BG 201 - 240 Give 2 units BG 241 - 280 Give 3 units BG greater than 280, give 4 units and recheck BG in 2 hours. - If recheck BG is LESS than 280, give no insulin and resume schedule - If recheck BG is GREATER than 280, give 4 units and repeat BG in 2 hours (no more than 3 times) & call for new insulin orders. DO NOT hold if NPO, unless specifically directed to do so by written order. Per Blood Glucose Monitoring Policy, re-check a BG of > 240 mg/dL in 2 hours., Routine Group 2: heparin (porcine) (1,000 units/mL) injection 0-4,000 Units (CANCELED) 0-4,000 Units, Intravenous, BOLUS PER HEPARIN PROTOCOL, Starting on Wed05/13/21 at 1644, Until Wed05/14/21 at 1817, Per Protocol, START ADJUSTMENT SCHEDULE 6 HOURS AFTER STARTING INFUSION Heparin UFH Level between 0.1 - 0.29 IU/mL: Bolus 2,000 units Heparin UFH Level less than 0.1 IU/mL: Bolus 4,000 units, Routine And heparin (porcine) 50 units/mL in sodium chloride 0.45% 500 mL infusion (CANCELED)Jump to med 0-5,000 Units/hr (0-100 mL/hr), Intravenous, CONTINUOUS, Starting on Wed05/13/21 at 1730, Until Wed05/14/21 at 1817, BEGIN infusion at 900 units per hr (12 units/kg/hr). MAX INITIAL infusion rate is 1,000 units/hr. Target Heparin UFH Level (anti-Xa activity) = 0.3 - 0.7 IU/mL Start adjustment schedule 6 hours after starting infusion. If Heparin UFH Level is: - less than 0.1 IU/mL, administer PRN bolus and increase rate by 300 units per hr (4 units/kg/hr) - 0.1 - 0.29 IU/mL, administer PRN bolus and increase rate by 150 units per hr (2 units/kg/hr) - 0.3 - 0.7 IU/mL, No Change - 0.71 - 0.85 IU/mL, decrease rate by 50 units per hr (1 units/kg/hr) - 0.86 - 1.05 IU/mL, stop infusion for 30 minutes, then decrease rate by 150 units per hr (2 units/kg/hr) - Greater than 1.05 IU/mL, stop infusion for 60 minutes, then decrease rate by 200 units per hour (3 units/kg/hr) Repeat Heparin UFH Level 6 hours after initiating heparin. Then 6 hours after each dose adjustment. When 2 consecutive Heparin UFH Level within target range of 0.3 - 0.7 IU/mL, change Heparin UFH Level to once every 24 hours with A.M. labs while on heparin. RN to order required Heparin UFH Level - Per Protocol, Routine Group 3: glucose (GLUTOSE) 40% oral geLJump to med 15-30 g, Buccal, EVERY 30 MIN PRN, Starting on Wed05/13/21 at 1644, Until Jodee 05/15/21 at 1318, Low blood sugar, For BG 50-70 mg/dL: Oral treatment preferred:?? If able to drink, give 120 mL Juice or Regular (not diet) soda OR If NPO, give 15 gram glucose 40% oral gel massaged into buccal mucosa OR if unconscious or uncooperative, give 25 gram (250 mL) Dextrose 10% IV over 15 minutes per protocol OR, if no IV access, 1 mg Glucagon IM. For BG less than 50 mg/dL: Oral treatment preferred:?? If able to drink, give 240 mL Juice or Regular (not diet) soda OR If NPO, give 30 gram glucose 40% oral gel massaged in buccal mucosa OR if unconscious or uncooperative, give 25 gram (250 mL) Dextrose 10% IV over 15 minutes per protocol OR, if no IV access, 1 mg Glucagon IM. Recheck BG in 30 minutes. May repeat juice/soda, gel, dextrose or glucagon once per episode. For persistent hypoglycemia, consider longer-acting treatment for the duration of the active insulin. 1 tube contains 15 grams of glucose (net weight of tube = 37.5 grams., Routine Or dextrose 10% infusionJump to med 250 mL, at 1,000 mL/hr, Intravenous, EVERY 30 MIN PRN, Starting on Wed05/13/21 at 1644, Until Jodee 05/15/21 at 1318, For BG 50-70 mg/dL: Oral treatment preferred:?? If able to drink, give 120 mL Juice or Regular (not diet) soda OR If NPO, give 15 gram glucose 40% oral gel massaged into buccal mucosa OR if unconscious or uncooperative, give 25 gram (250 mL) Dextrose 10% IV over 15 minutes per protocol OR, if no IV access, 1 mg Glucagon IM. For BG less than 50 mg/dL: Oral treatment preferred:?? If able to drink, give 240 mL Juice or Regular (not diet) soda OR If NPO, give 30 gram glucose 40% oral gel massaged in buccal mucosa OR if unconscious or uncooperative, give 25 gram (250 mL) Dextrose 10% IV over 15 minutes per protocol OR, if no IV access, 1 mg Glucagon IM. Recheck BG in 30 minutes. May repeat juice/soda, gel, dextrose or glucagon once per episode. For persistent hypoglycemia, consider longer-acting treatment for the duration of the active insulin. Or glucagon (Glucagen) (1 mg/mL) injection solution 1 mgJump to med 1 mg, Intramuscular, EVERY 30 MIN PRN, Starting on Wed05/13/21 at 1644, Until Wed05/15/21 at 1318, Low blood sugar, For BG 50-70 mg/dL: Oral treatment preferred:?? If able to drink, give 120 mL Juice or Regular (not diet) soda OR If NPO, give 15 gram glucose 40% oral gel massaged into buccal mucosa OR if unconscious or uncooperative, give 25 gram (250 mL) Dextrose 10% IV over 15 minutes per protocol OR, if no IV access, 1 mg Glucagon IM. For BG less than 50 mg/dL: Oral treatment preferred:?? If able to drink, give 240 mL Juice or Regular (not diet) soda OR If NPO, give 30 gram glucose 40% oral gel massaged in buccal mucosa OR if unconscious or uncooperative, give 25 gram (250 mL) Dextrose 10% IV over 15 minutes per protocol OR, if no IV access, 1 mg Glucagon IM. Recheck BG in 30 minutes. May repeat juice/soda, gel, dextrose or glucagon once per episode. For persistent hypoglycemia, consider longer-acting treatment for the duration of the active insulin., Routine documented in this encounter Care Teams Administrative Job Titles Relationship Specialty Start Date End Date Asia Gil DO [address] [place] [address] PCP - General Family Medicine 07/09/20 documented as of this encounter
--- OUTSIDE RECORDS SUMMARY | 2024-05-02 12:07 | XMS_ITS | Encounter Summary ---
Author Organization [place] [address] Care Team Providers Care Clinical Nurse Educator Name Role Phone Asia Gil DO Primary Care Provider [phone] Encounter Details Date Type Department Care Team (Latest Contact Info) Description 09/09/2021 2:20 PM EST TH Visit (TeleHealth) Cardiology at [address] [phone] Antonio Cruz MD [facility] [place] [address] Hx-TIA (transient ischemic attack); Hyperlipidemia, unspecified hyperlipidemia type; Hypertension, unspecified type; HFrEF (heart failure with reduced ejection fraction); ASCVD (arteriosclerotic cardiovascular disease); Coronary artery disease, unspecified vessel or lesion type, unspecified whether angina present, unspecified whether [place] or transplanted heart; Unstable angina; PVD (peripheral [...] Progress Notes * Antonio Cruz MD - 09/09/2021 2:20 PM EST Images from the original note were not included. Formerly [facility] [place] [address] [place] [address] CARDIOLOGY OUTPATIENT CLINIC VISIT [facility] Toyin Coley 09/08/2021 Referring Providers: DO Jeffery Cano Irene B, DO [address] [place] [id number] CARDIAC-RELEVANT PROBLEM LIST: 1. HFrEF (heart failure [...] 14. Pancreatic pseudocyst, Pancreatitis, Pancreatic abscess 15. [id number] kidney injury 16. Anemia of chronic disease [...] to medically manage. Successfully completed cardiac rehab. Continues toremain active going to a phase 3 cardiac rehab program 2 times a week. Recently moved and was able to lift the boxes and complete her move successfully. Recently developed abdominal pain. Went to the [...] Guided Drain Pancreatic/Peripancreatic 02/20/2021 Mauro Thomas, DO [facility] RAD CAT SCAN ??? IR DRAIN CHECK/CHANGE/REMOVE 03/13/2021 IR Drain Check/Change/Remove 03/13/2021 Chris Jamil MD [facility] INTERVENTIONL RAD ??? PRO ERCP,DIAGNOSTIC N/A 01/17/2021 ERCP performed by Eliel Leigh MD at [facility] ENDOSCOPY SOCIAL HISTORY: reports that she has never smoked. She has never used smokeless tobacco. She reports previous alcohol use. She reports current drug use. Frequency: 7.00 times per week. Drug: Marijuana. FAMILY HISTORY: family history is not on file. MEDICATIONS: Current Outpatient Medications Medication Sig Dispense Refill ??? torsemide (Demadex) 10 mg Tablet Take 10 mg by mouth daily. ??? lisinopriL (Zestril) 10 mg Tablet TAKE ONE TABLET BY MOUTH DAILY (Patient not taking: Reported on 06/13/2021) 90 tablet 3 ??? isosorbide mononitrate CR (Imdur) 30 mg [...] 2 times daily.) 90 capsule 12 ??? gabapentin (Neurontin) 100 mg Capsule Take 2 capsules by mouth nightly as needed (sciatic leg pain). (Patient not taking: Reported on 06/19/2021) 90 capsule 12 ??? atorvastatin (Lipitor) 40 [...] continue her phase 3 cardiac rehab program. 2. CHF, EF 40%, mod MS mild [...] Sincerely, Dr. Antonio Cruz MD [facility] Environmental Maintenance Worker Interventional Cardiology 09/08/2021 CC: Asia Gil DO documented in this encounter Plan of Treatment Upcoming Encounters Date Type Department Care Team (Latest Contact Info) Description 05/08/2024 10:30 AM EDT Hospital Encounter [place] [address] Bk Contreras MD [facility] [place] [address] 05/08/2024 10:30 AM EDT - 05/08/2024 11:00 AM EDT Surgery [place] [phone] Bk Contreras MD [facility] [place] [address] INJECTION, ANESTHETIC AGENT AND/OR STEROID, TRANSFORAMINAL EPIDURAL, LUMBAR OR SACRAL, SINGLE LEVEL (WRVU 1.9) 05/12/2024 1:00 PM EDT Office Visit Cardiology at [address] [phone] Sadi Styles MD [facility] [place] [address] 05/29/2024 10:15 AM EDT TH Visit (TeleHealth) [place] [address] Natalee Sanchez, KURTIS [facility] [place] [address] Scheduled Procedures Name Priority Associated Diagnoses Date/Ti [...] type, unspecified whether angina present, unspecified whether [place] or transplanted heart Unstable angina Intermediate coronary syndrome PVD (peripheral vascular disease) with claudication Peripheral vascular disease, unspecified Moderate mitral stenosis Mitral stenosis Left lumbar radiculopathy Thoracic or lumbosacral neuritis or radiculitis, unspecified documented in this encounter Care Teams Clinical Nurse Educator Relationship Specialty Start Date End Date Asia Gil DO [address] [facility] [place] [address] PCP - General Family Medicine 07/09/20 documented as of this encounter
--- OUTSIDE RECORDS SUMMARY | 2024-05-02 12:07 | XMS_ITS | Encounter Summary ---
[place] [address] Care Team Providers Care Woodwind Reeds Cutter Name Role Phone Asia Gil DO Primary Care Provider [phone]- [phone] Reason for Referral * Diagnostic Test (Routine) - Closed Specialty Diagnoses / Procedures Referred By Contac t Referred To Contact Gastroenterology Diagnoses RUQ pain Dysphagia, unspecified type Regurgitation of food Constipation, unspecified constipation type BUMP 10 ARM for constipation Procedures High Definition Anal Manometry ARM for constipation [place] [address] [facility] [address] [place] [address] Referral ID Status Reason Start Date Expiration Date V isits Requested Visits Authorized [id number] Closed Consult, Test & Treat PCP Updated and/or Approved 02/24/2022 02/24/2023 1 1 Reason for Visit * Consultation (Routine) - Closed Specialty Diagnoses / Procedures Referred By Contac t Referred To Contact Gastroenterology Diagnoses Right upper quadrant pain chronic RUQ pain Aggie Sawant MD [address] [place] [address] [facility] [place] [address] Referral ID Status Reason Start Date Expiration Date V isits Requested Visits Authorized [id number] Closed Consult, Test & Treat 02/06/2022 02/06/2023 1 1 Encounter Details Date Type Department Care Team (Latest Contact Info) Description 02/24/2022 9:00 AM EDT TH Visit (TeleHealth) Gastroenterology at [facility] [place] [address] Ozzy Saunders, ON AIR DIRECTOR [place] [address] RUQ pain; Dysphagia, unspecified type; Regurgitation of [...] on file documented as of this encounter Patient Instructions * Patient Instructions* Ozzy Saunders, KURTIS - 02/24/2022 9:34 AM EDT Dear Toyin, It was nice to meet you today. I have listed the recommendations we discussed below. Please call the GI department to schedule the investigations if you do not hear from us within 1 week: Clinic [phone] Motility Lab scheduling [phone] Endoscopy scheduling- [phone] -Labs -Endoscopic ultrasound -Esophageal manometry with 24hr pH impedence ON PPI for regurgitation -Anorectal manometry Therapeutics: -Citrucel (make sure it is free of artificial sweetener): 1tsp daily for one week, then 2tsp daily for one week, then 3tsp (1TBSP) daily. May increase slowly up to 2 TBSP daily. Titrate according to what works best for you.This may cause bloating initially but this will improve with continued use. -Miralax as needed for constipation (per packaging instructions) -Constipation Rescue Regimen as needed -Discuss when to discontinue plavix prior to procedure with prescribing provider -Dysphagia handout -GERD lifestyle handout RTC in 3 months with motility THI when labs and endoscopic ultrasound are complete to further consolidate the GI care plan for the patient's local team. Due to the consultative nature of our practice, the patient should continue to work with Dr. Gil as the primary point of contact for urgentissues, medication refills and adjustments as needed for continuity of care purposes in between visits to our center based on the recommendations above. Per their discretion, it may be beneficial forthe patient to establish with a local stone rubber for continuity of care, so that we can co-manage on a consultative basis more effectively. GERD (Gastroesophageal reflux disease) LIFESTYLE CHANGES -Weight loss (if appropriate) -Stop smoking if you smoke -Avoid trigger foods like: fatty foods, spicy foods, fried foods, chocolate, coffee, peppermint, carbonated beverages -Eat smaller more frequent meals -Avoid lying down for 2-3 hours after eating a meal or drinking acidic beverages -Elevate HOB 6-8 inches using cinder blocks or a wedge under the mattress -Wear loose fitting clothing TROUBLE SWALLOWING TIPS -Avoid foods that are hard or have tough skins. Avoid foods that fall apart in your mouth such as seeds, nuts, muffins. Avoid dry sticky foods such as mashed potatoes without gravy, white bread, peanut butter. -Always eat slowly and carefully, no distractions (such as the TV) when eating -Sit upright -Take small bites of food and small sips of liquid -Do not use straws -Avoid mixing food textures (such as chicken noodle soup or dry cereal with milk) -Remain upright 20-30min after eating -Constipation Rescue regimen Step 1 if 2 days without a bowel movement) Use a glycerin suppository at night then try to have a bowel movement in 10-15 minutes Step 2 if 3 days without a bowel movement) If the glycerin does not work, use a warm (not hot) tap water enema Step 3 if 4 days without a bowel movement) Try taking senna (up to four tabs), two dulcolax 5mg oral tabs or a dulcolax suppository 30 minutes later depending on what works best for you. Healthy Bowel Habits 1. Eat all of your meals (breakfast, lunch, and dinner) at a predictable time each day. The bowel functions best when food is introduced at the same regular intervals. 2. Eat foods in similar amounts. The bowel functions best when food is in similar quantity. The size of different meals taken through the day may vary, but the amount of food eaten at a given meal (breakfast, lunch, or dinner) should be about the same quantity from day to day. 3. Breakfast is the most important meal involved in bowel stimulation. Make sure you eat breakfast every day. 4. Eat a high fiber diet that includes both soluble and insoluble fiber. 5. Keep caffeine to a minimum. Caffeine is a diuretic drawing fluid from your colon and leaving your stools hard. 6. Drink plenty of decaffeinated fluids. Ideally a person should drink 64 ounces a day or 8 glassesof water, especially if you are eating a fiber-rich diet. This may not be possible for people suffering from kidney disease, heart disease or urinary problems. 7. Exercise daily. Exercise increases colonic transit time. Bowel function is helped most when exercise is at a consistent daily time. Bowel Movement Technique Find your best time of day to have a bowel movement. Usually the best time of day for a bowel movement will be a half hour to an hour after breakfast. For some people a half hour to an hour after lunch will work better. These times are best because the body uses the gastro-colic reflex, a stimulation of bowel motion that occurs with eating, to help produce a bowel movement. Make sure that you arenot rushed and have convenient access to a bathroom at this time. ? Sit on toilet and lean forward, resting forearms on thighs. Lift heels or place feet on stool. ? Alternate position-may try leaning forward and grasping ankles. ? Relax rectum, feeling it slightly bulge outward. ? Keeping lips, jaw and mouth open will facilitate relaxation of the pelvic floor during your bowelmovement. ? Breathe in through nose and exhale through mouth or perform gentle hissing through the teeth. Gently direct the air down and back to the rectum, keeping your abdomen firm. ? Post- patients or patients with perineal descent should place fingers externally on the perineum (area between vagina and rectum). ? When finished -contract pelvic floor muscles to restore normal pelvic floor tone. Repeat 3-4 times. If still unsuccessful, contract the pelvic floor and get off the toilet. Avoid straining documented in this encounter Progress Notes * Ozzy Saunders APRN - 02/24/2022 9:00 AM EDT GI [facility] C[facility] TELEMEDICINE PROGRAM Chief Complaint: Toyin Coley is a 66 y.o. patient referred for consultation by Dr. Sawant for RUQ pain, regurgitation, constipation History of Present Illness: 66 y.o. female with past medical history significant for hypertension, hyperlipidemia, diabetes mellitus type 2, TIA, CKD, SIMMONS cirrhosis (confirmed with biopsy 08/2008). Lap cholecystectomy (subtotal) in 2016. She has a history of ERCP with cholangioscopy for unsuccessful removal/obliteration of retained stone in cystic duct remnant versus gallbladder infundibulum in setting of chronic right upper quadrant pain. This was complicated by pancreatitis, peripancreatic fluid collection, and fluid overload. She was eventually transferred to [facility]. Drainage catheter was placed. Has had RUQ pain for over 6 years. Stable. More pain when laying on that side. Pain is intermittent. May last everyday for a few days and thennot have it for a few days. If she has a very large meal she has more pain within 5-10min, resolveswithin an hour. Certain movements do not aggravate. At its worse it can be a 7-8/10. Denies early satiety and post prandial fullness. Intermittent nausea, once every few weeks. Dysphagia to solids but is very cautious. She has had dysphagia in the past requiring dilation of esophagus. Last episode one month ago Regurgitation occurs daily with solids and liquids. Has had this for years. Has had to have esophageal dilation in the past. Is taking miralax every other day. Typically has BM every other day. Denies straining and prolongedtoilet time. Denies bloody stool and melena. Denies weight loss Last colonoscopy done a few years ago at [facility]. Polyps were removed. 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 Medications: Outpatient Medications Prior to Visit Medication Sig Dispense Refill ??? lisinopriL (Zestril) 5 mg Tablet Take 1 tablet by mouth daily. 90 tablet 3 ??? torsemide (Demadex) 10 [...] Solostar U-100 Insulin pen 11 Units. ??? aspirin 81 mg Tablet, Chewable Take 81 mg by mouth daily. 90 tablet 3 ??? clopidogreL (Plavix) 75 mg Tablet Take 1 tablet by mouth daily. 90 tablet 3 ??? melatonin 3 mg Tablet Take 2 tablets by mouth nightly. 180 tablet 3 ??? traZODone (Desyrel) 50 mg Tablet Take 0.5 tablets by mouth nightly. 45 tablet 3 ??? polyethylene glycoL (Miralax) [...] by mouth daily. 90 tablet 3 ??? lidocaine-prilocaine (EMLA) Cream Apply 30 Applications topically as needed. ??? OneTouch Ultra2 Meter Misc USE DIRECTED TO TEST BLOOD GLUCOSE ??? OneTouch Delica Plus Lancet 33 gauge Misc USE TO TEST BLOOD SUGAR DAILY ??? BD Dionna 2nd Gen Pen Needle 32 gauge x Needle USE WITH DAILY INSULIN ??? oxyCODONE (Roxicodone) 5 mg Tablet Take 1 tablet by mouth every 8 hours as needed for Pain. (Patient not taking: Reported on 02/24/2022) 15 tablet 0 No facility-administered medications prior to visit. Allergies: is allergic to benzodiazepines, house dust, hydrocodone- acetaminophen, metoclopramide, mold extracts, pollen extracts, propoxyphene hcl, and unknown [unclassified drug]. Past Medical History: has a past medical history of CKD (chronic kidney disease) (04/05/2020), Delirium (04/05/2020), Diabetes mellitus type 2, uncomplicated (05/14/2014), TIA (transient ischemic attack)(05/14/2014), Hyperlipidemia (05/28/2014), Hypertension (05/28/2014), and Restless legs syndrome (RLS) ( 04/05/2020). Past Surgical History: has a past surgical history that includes Ercp, Diagnostic (91679) (N/A, 01/17/2021); CT Guided Drain Pancreatic/Peripancreatic (02/20/2021); and IR Drain Check/Change/Remove (03/13/2021). Family History: family history is not on file. denies family history of colon cancer, IBD, or celiac disease in mother father or other family members Social History: reports that she has never smoked. She has never used smokeless tobacco. She reports previous alcohol use. She reports current drug use. Frequency: 7.00 times per week. Drug: Marijuana. Physical exam: Constitutional: well appearing, no apparent distress Eyes: conjunctiva clear without icterus, pallor, or injection ENT: Nose without external redness or drainage. Mouth with normal dentition; moist mucous membranes CV: No lower extremity peripheral edema or signs of cyanosis Respiratory: Breathing comfortably and speaking in full sentences without evident tachypnea or signs of respiratory distress GI: Abdomen non-distended and non-tender to self-palpation Skin: No visible rashes Psych: Appropriate affect. Intact thought and speech Neuro: Alert and oriented. Moving upper extremities appropriately Questionnaire: Q-GI MOTILITY CLINIC BATTERY 02/24/2022 [facility] Healthy Day Score 30 Laboratory studies, imaging, and procedures (in summary of my review of prior records): Lab Results Component Value Date WBC 6.4 12/11/2021 RBC 3.50 (L) 12/11/2021 HGB 10.9 (L) 12/11/2021 HCT 33.8 (L) 12/11/2021 MCV 96.6 (H) 12/11/2021 MCH 31.1 12/11/2021 MCHC 32.2 12/11/2021 PLATELET 177 12/11/2021 RDWCV 12.7 12/11/2021 Lab Results Component Value Date NA 137 12/11/2021 K 4.3 12/11/2021 CL 103 12/11/2021 CO2 24 12/11/2021 BUN 62 (H) 12/11/2021 CREATININE 1.71 (H) 12/11/2021 GLUCOSE 130 12/11/2021 GLUCFASTING 100 (H) 05/15/2021 CALCIUM 9.5 12/11/2021 ESTGFR 30 (L) 12/11/2021 Lab Results Component Value Date ALT 23 02/19/2021 AST 28 02/19/2021 ALKPHOS 310 (H) 02/19/2021 BILITOT 0.4 02/19/2021 BILIDIR 0.2 02/19/2021 ALBUMIN 2.9 (L) 02/19/2021 PROT 8.0 02/19/2021 Lab Results Component Value Date TSH 1.25 05/13/202103/2021 CT A/P: Markedly decreased size of the periduodenal / peripancreatic fluid collection, now with a small amount of fluid in the periduodenal region and tracking along the right hepatic lobe. No connection to the bowel or pancreatic duct identified. Dropped choledocholithiasis within the inferior margin of the residual collection; this stone was previously located within the cystic duct on prior examinations of 01/29/2021 and 01/19/2021. 01/17/2021 ERCP: - A single small cholecystolithiasis ?was found adherent to the wall of the ?gallbladder remanent ?- Ductoscopy was performed and ?attempts to disrupt and remove the ?stone with EHL, and Spy Basket and ?Spy snare were unsuccessful. Assessment/Plan: Ms. Coley is a 66 y.o. patient with past medical history significant for hypertension, hyperlipidemia, diabetes mellitus type 2, TIA, CKD, SIMMONS cirrhosis (confirmed with biopsy 08/2008). Lap cholecystectomy (subtotal) in 2016. She has a history of ERCP with cholangioscopy for unsuccessful removal/obliteration of retained stone in cystic duct remnant versus gallbladder infundibulum in setting ofchronic right upper quadrant pain. This was complicated by pancreatitis, peripancreatic fluid collection, and fluid overload. She was eventually transferred to [facility]. Drainage catheter was placed and eventually removed 03/2021. #Right upper quadrant pain remains stable. Typically aggravated by laying on right side or after eating a large meal. Usually resolves within an hour. Denies early satiety and postprandial fullness. Intermittent nausea occurs once every few weeks. #Dysphagia and regurgitation: Dysphagia to solids began many years ago and is intermittent. Typically meat is most bothersome. Last episode 1 month ago. She is very careful with eating. Regurgitationoccurs daily with solids and liquids. This has been occurring for years. Endorses having esophagealdilations in the past. #Constipation: This has been her pattern for many years. Currently taking MiraLAX every other day and has a bowel movement every other day. Denies straining and prolonged toilet time. Denies weight loss, bloody stool, and melena. Toyin states she has had an MRI recently at [facility] that did not reveal any retained stones. Will obtain endoscopic ultrasound to assess biliary tract, also requesting possible dilation of esophagus ifappropriate and biopsies to rule out H. pylori and EOE. Will obtain esophageal manometry 24-hour pHimpedance on PPI to rule out refractory GERD. Anorectal manometry to investigate for pelvic floor dysfunction contributing to constipation. Since patient has CKD recommend against using MiraLAX daily although if this is the only regimen that works daily use may be necessary to avoid severe constipation. Recommend trial of Citrucel daily and use MiraLAX as needed for constipation. Will also provide her with constipation rescue regimen to be used as needed. We discussed that complete symptom relief may not be a fully achievable goal for this chronic condition, but that improvement in quality of life, healthy days at work and family functions, and also general symptom improvement may be more reasonable goals. We discussed that treatments should be tried individually and for periods of at least 4-8 weeks to truly assess symptom response. I did my bestto answer questions to the fullest ability. We discussed that recommended treatments should be tried individually for at least three months at a time to truly assess for a meaningful response, or as long as tolerated, before changing therapy. Recommendations: Diagnostics: -Obtain MRI from [facility] from a few weeks ago -Obtain colonoscopy report and any pathology from [facility] -Hepatic function panel, celiac panel -EUS for dysphagia, regurgitation, continued intermittent RUQ pain with history of retained stone (although most recent MRI negative for stones per patient), possible dilation of esophagus if appropriate. Please obtain bx to r/o H. Pylori, EOE -Esophageal manometry with 24hr pH impedence ON PPI for regurgitation -Anorectal manometry Therapeutics: -Citrucel (make sure it is free of artificial sweetener): 1tsp daily for one week, then 2tsp daily for one week, then 3tsp (1TBSP) daily. May increase slowly up to 2 TBSP daily. Titrate according to what works best for you.This may cause bloating initially but this will improve with continued use. -Miralax as needed for constipation (per packaging instructions) -Constipation Rescue Regimen as needed -Discuss when to discontinue plavix prior to procedure with prescribing provider -Dysphagia handout -GERD lifestyle handout RTC in 3 months with motility THI when labs and endoscopic ultrasound are complete to further consolidate the GI care plan for the patient's local team. Due to the consultative nature of our practice, the patient should continue to work with Dr. Gil as the primary point of contact for urgentissues, medication refills and adjustments as needed for continuity of care purposes in between visits to our center based on the recommendations above. Per their discretion, it may be beneficial forthe patient to establish with a local stone rubber for continuity of care, so that we can co-manage on a consultative basis more effectively. The patient was located in [place] at the time of their visit. TIME SPENT WITH PATIENT Time spent reviewing records prior to this encounter on day of appointment: 5 minutes Time spent during encounter with patient including counselin minutes Time spent documenting encounter after office visit: 10 minutes Ozzy Saunders APRN [facility] [place] [address] documented in this encounter Plan of Treatment Upcoming Encounters Date Type Department Care Team (Latest Contact Info) Description 05/08/2024 10:30 AM EDT Hospital Encounter [place] [address] Bk Contreras MD [facility] [place] [address] 05/08/2024 10:30 AM EDT - 05/08/2024 11:00 AM EDT [place] [address] Bk Contreras MD [facility] [place] [address] INJECTION, ANESTHETIC AGENT AND/OR STEROID, TRANSFORAMINAL EPIDURAL, LUMBAR OR SACRAL, SINGLE LEVEL (WRVU 1.9) 05/12/2024 1:00 PM EDT Office Visit Cardiology at [address] [address] Sadi Styles MD [facility] [place] [address] 05/29/2024 10:15 AM EDT TH Visit (TeleHealth) [facility] [place] [phone] Natalee Sanchez APRN [facility] [place] [address] Scheduled Orders Name Type Priority Associated Diagnoses Orde r Schedule ENDOSCOPY CASE REQUEST: UPPER EUS- ENDOSCOPIC ULTRASOUND Procedures Routine RUQ pain Dysphagia, unspecified type Regurgitation of food Constipation, unspecified constipation type Ordered: 02/24/2022 High Definition Anal Manometry GI Routine RUQ pain Dysphagia, unspecified type Regurgitation of food Constipation, unspecified constipation type Expected: 02/24/2022 (Approximate), Expires: 08/27/2023 Scheduled Procedures Name Priority Associated Diagnoses Date/Ti [...] unspecified documented in this encounter Care Teams Woodwind Reeds Cutter Relationship Specialty Start Date End Date Asia Gil DO [address] [place] [id number] PCP - General Family Medicine 07/09/20 documented as of this encounter
--- OUTSIDE RECORDS SUMMARY | 2024-05-02 12:07 | XMS_ITS | Encounter Summary ---
Author Organization [facility] Address [facility] [place] [address] Care Team Providers Care Battalion Chief Name Role Phone Asia Gil DO Primary Care Provider +1- [phone] Encounter Details Date Type Department Care Team (Late st Contact Info) Description 05/15/2021 Notes Only Cardiology at [address] [address] Debbi Zimmer MD [facility] [place] [address] Social History Tobacco Use Types Packs/Day Years [...] as of this encounter Progress Notes * Debbi Zimmer MD - 05/15/2021 2:21 PM EDT ??S2 DISCHARGE NOTE I have seen and examined this patient and discussed with the internet marketing intern, resident, fellow. ??I agree with the plan noted ?? This is a 66 year old woman with 3-vessel coronary artery disease but was not felt to be a surgicalcandidate. ??She underwent PCI of her LAD with Dr. Amena Cruz in early April 2021 but has residual obstructive disease in two vessels. ??Plan had been to have her go to cardiac rehab and see how she does clinically. ??She has been having chest pain requiring SLNTG. ??On this admission, Troponin has beennegative however we will review with interventional cardiology to determine options. ?? Debbi Zimmer MD, Kellie, [facility] Cardiology Attending?? documented in this encounter Plan of Treatment Upcoming Encounters Date Type Department Care Team (Latest Contact Info) Description 05/08/2024 10:30 AM EDT Hospital Encounter Pain Management [place] [phone] Bk Contreras MD [facility] [place] [address] 05/08/2024 10:30 AM EDT - 05/08/2024 11:00 AM EDT Surgery [place] [address] Bk Contreras MD [facility] [place] [address] INJECTION, ANESTHETIC AGENT AND/OR STEROID, TRANSFORAMINAL EPIDURAL, LUMBAR OR SACRAL, SINGLE LEVEL (WRVU 1.9) 05/12/2024 1:00 PM EDT Office Visit Cardiology at [place] [phone] Sadi Styles MD [facility] [place] [address] 05/29/2024 10:15 AM EDT TH Visit (TeleHealth) Pain and Spine Center at [place] [phone] Natalee Sanchez, RESIDENT CARE MANAGER RN [facility] [place] [address] Scheduled Procedures Name Priority Associated Diagnoses Date/Ti me INJECTION, ANESTHETIC AGENT AND/OR STEROID, TRANSFORAMINAL EPIDURAL, LUMBAR OR SACRAL, SINGLE LEVEL (WRVU 1.9) Left lumbar radiculopathy 05/08/2024 10:30 AM EDT documented as of this encounter Visit Diagnoses Not on filedocumented in this encounter Care Teams Battalion Chief Relationship Specialty Start Date End Date Asia Gil DO [address] [place] [address] PCP - General Family Medicine 07/09/20 documented as of this encounter
--- OUTSIDE RECORDS SUMMARY | 2024-05-02 12:07 | XMS_ITS | Encounter Summary ---
Author Organization [facility] [place] [address] Care Team Providers Care Sales Financial Analyst Name Role Phone Asia Gil DO Primary Care Provider +1- [phone] Encounter Details Date Type Department Care Team (Late st Contact Info) Description 08/22/2021 External [place] [phone] Social History Tobacco Use Types Packs/Day Years [...] 10:30 AM EDT Hospital [place] [phone] Bk Contreras MD [facility] [place] [place] [address] 05/08/2024 10:30 AM EDT - 05/08/2024 11:00 AM EDT Surgery [facility] [place] [address] Bk Contreras MD [facility] [place] [address] INJECTION, ANESTHETIC AGENT AND/OR STEROID, TRANSFORAMINAL EPIDURAL, LUMBAR OR SACRAL, SINGLE LEVEL (WRVU 1.9) 05/12/2024 1:00 PM EDT Office Visit Cardiology at [address] Sadi Styles MD [facility] [place] [address] 05/29/2024 10:15 AM EDT TH Visit (TeleHealth) [facility] at [place] [phone] Natalee Sanchez APRN [facility] [place] [address] Scheduled Procedures Name Priority Associated Diagnoses Date/Ti me INJECTION, ANESTHETIC AGENT AND/OR STEROID, TRANSFORAMINAL EPIDURAL, LUMBAR OR SACRAL, SINGLE LEVEL (WRVU 1.9) Left lumbar radiculopathy 05/08/2024 10:30 AM EDT documented as of this encounter Procedures Procedure Name Priority Date/Time Associated Diagnosis Comments ECG SCAN Routine 08/22/2021 documented in this encounter Results * Scan Doc: ECG (08/22/2021) Historical Provider MD MOJICA MGR SCAN EX T ORDR/RSLT documented in this encounter Visit Diagnoses Not on filedocumented in this encounter Care Teams Sales Financial Analyst Relationship Specialty Start Date End Date Asia Gil DO [address] [place] [address] PCP - General Family Medicine 07/09/20 documented as of this encounter
--- OUTSIDE RECORDS SUMMARY | 2024-05-02 12:07 | XMS_ITS | Encounter Summary ---
Author Organization [facility] [place] [address] Care Team Providers Care Washing Machine Assembler Name Role Phone Asia Gil DO Primary Care Provider +1- [phone] Encounter Details Date Type Department Care Team (Late st Contact Info) Description 06/24/2021 Telephone Cardiology at [address] [phone] Bernardo Santos RN Social History Tobacco Use Types Packs/Day [...] Miscellaneous Notes * Telephone Encounter - Bernardo Santos RN - 07/10/2021 10:[address] Cruz's note. Call placed to Dr. Asia Gil's office ([facility]). Message relayed to her Triage Nurse. Voiced appreciation for today's return nano. Chase Santos RNracing secretary Team Nurse [facility] Ambulatory Cardiology * Telephone Encounter - Antonio Cruz MD - 07/09/2021 1:03 PM EDT Sure, Cilostazol can be started by vascular, no problems. Antonio Cruz MD * Telephone Encounter - Bernardo Santos RN - 06/24/2021 12:24 PM EDT Appreciate VM prompt from Dr. Asia Gil (PCP). Seeking to connect (Peer to Peer) with Dr. Cruz to discuss plan of care for Ms. Coley. VM notes appreciation for findings from recent vascular consult. Details no direct source found forMsAnders Wan's symptoms (ruled out vascular claudication as likely source). Also details presumed impeded flow from extensive calcium deposits - as possibly contributory to the patient's symptoms. Dr. Betancourt adds that she does not think that this discomfort can be fully assigned to neuropathy. Her question today: Is there a role for Cilostazol for treating this kind of discomfort? Requests connection with Dr. Cruz at his (non - urgent) availability. Chase Santos, racing secretary Team Nurse [facility] Ambulatory Cardiology documented in this encounter Plan of Treatment Upcoming Encounters Date Type Department Care Team (Latest Contact Info) Description 05/08/2024 10:30 AM EDT Hospital Encounter [place] [address] Bk Contreras MD [facility] [place] [address] 05/08/2024 10:30 AM EDT - 05/08/2024 11:00 AM EDT Surgery [place] [address] Bk Contreras MD [facility] [place] [address] INJECTION, ANESTHETIC AGENT AND/OR STEROID, TRANSFORAMINAL EPIDURAL, LUMBAR OR SACRAL, SINGLE LEVEL (WRVU 1.9) 05/12/2024 1:00 PM EDT Office Visit Cardiology at [address] [phone] Sadi Styles MD [facility] [place] [address] 05/29/2024 10:15 AM EDT TH Visit (TeleHealth) [facility] [place] [phone] Natalee Sanchez APRN [facility] [place] [address] Scheduled Procedures Name Priority Associated Diagnoses Date/Ti me INJECTION, ANESTHETIC AGENT AND/OR STEROID, TRANSFORAMINAL EPIDURAL, LUMBAR OR SACRAL, SINGLE LEVEL (WRVU 1.9) Left lumbar radiculopathy 05/08/2024 10:30 AM EDT documented as of this encounter Visit Diagnoses Not on filedocumented in this encounter Care Teams Washing Machine Assembler Relationship Specialty Start Date End Date Asia Gil DO [address] [place] [address] PCP - General Family Medicine 07/09/20 documented as of this encounter
--- OUTSIDE RECORDS SUMMARY | 2024-05-02 12:07 | XMS_ITS | Encounter Summary ---
Author Organization [facility] [place] [address] Care Team Providers Care Strip Catcher Name Role Phone Asia Gil DO Primary Care Provider +1- [phone] Reason for Visit * Consultation (Routine) - Closed Specialty Diagnoses / Procedures Referred By Leonel chin Referred To Contact Vascular Surgery Diagnoses Hypertension, unspecified type Antonio Cruz MD [facility] [place] [address] [facility] Vascular Surg [address] [place] [address] Referral ID Status Reason Start Date Expiration Date V isits Requested Visits Authorized [id number] Closed Consult, Test & Treat 05/21/2021 05/21/2022 1 1 Encounter Details Date Type Department Care Team (Late st Contact Info) Description 06/13/2021 2:00 PM EDT Office Visit [place] [phone] [facility] [place] [place] [address] Pain in both feet Social [...] Sign Reading Time Taken Comments Blood Pressure 134/58 06/13/2021 2:10 PM EDT Pulse 61 06/13/2021 2:10 PM EDT Temperature - - Respiratory Rate - - Oxygen Saturation - - Inhaled Oxygen Concentration - - Weight 76.2 kg (168 lb) 06/13/2021 2:10 PM EDT r eported Height 160 cm (5' 3) 06/13/2021 2:10 PM EDT rep orted Body Mass Index 29.76 06/13/2021 2:10 PM EDT documented in this encounter Progress Notes * Hannah Antonio APRN - 06/13/2021 2:00 PM EDT Vascular Clinic Progress Note Reason for visit: referred for evaluation of claudication Interval history: 66 year old female with a history of HFrEF, unstable angina, CAD, ASCVD, TIA, T2DM, HLD, HTN, CKD, diabetic neuropathy, ACD, GERD, RLS, anxiety, delerium, nonalcoholic steatohepatitis. C/o bilateral foot pain, L>R, at rest going on for years but worse over the last 10-15 years.Wakes her at night. Hurts even to have the sheets touching her feet. Sometimes she sleeps with her feet dangling but not sure it helps because she has taken tylenol for the pain which does help. The pain is not worse with walking, climbing a hill or stairs. Walking around helps the pain as does soaking in epsom salt but it doesn't last long. She doesn't sleep well because of this pain. Has alwaysbeen told it's from neuropathy. Diabetes has been well-controlled with A1cs in the 6 range. Feet are always cold too and have been her whole life. Denies CP/SOB, stroke/TIA symptoms, rest pain or tissue loss. Takes ASA, atorva, plavix Takes gabapentin [phone] daily which is an increase from daily dose of 500 two weeks ago. She does note benefit with both levels of dosing. Prior vascular history: none Atherosclerotic Risk Factors: (Y) DM (Y) HTN (Y) CAD (Y) Hyperlipidemia (N) Tobacco (Y) CVA Patient Active Problem List Diagnosis Code ??? [...] fluid collection with possible abscess K85.90 ??? Qmisj-nd-pczghwe kidney injury N17.9, N18.9 ??? Anemia of chronic disease D63.8 ??? Acute blood loss anemia D62 ??? CAD (coronary artery disease) I25.10 ??? Unstable angina I20.0 Allergies Allergen Reactions ??? Benzodiazepines Other (See Comments) Paradoxical reaction to benzodiazepines ??? House Dust ??? Hydrocodone-Acetaminophen Itching ??? Metoclopramide ??? Mold Extracts ??? Pollen Extracts ??? Propoxyphene Hcl Nausea And Vomiting ??? Unknown [Unclassified Drug] Most environmental allergies: grass, workman, trees,pollen Current Outpatient Medications on File Prior to Visit Medication Sig Dispense Refill ??? lisinopriL (Zestril) 10 mg Tablet TAKE ONE TABLET BY MOUTH DAILY 90 tablet 3 ??? isosorbide mononitrate CR (Imdur) 30 mg Tablet Sustained Release 24 hr Take 1 tablet by mouth every morning. 30 tablet 12 ??? torsemide (Demadex) 20 mg Tablet Take 0.5 tablets by mouth daily. 30 tablet 3 ??? nitroGLYcerin (Nitrostat) 0.4 mg Tablet, Sublingual Take 0.4 mg by mouth as needed. ??? ondansetron (Zofran) 4 mg Tablet Take 4 mg by mouth as needed. ??? lidocaine-prilocaine (EMLA) Cream Apply 30 Applications topically as needed. ??? Lantus Solostar U-100 Insulin pen INJECT 10 UNITS SUBCUTANEOUSLY EVERY MORNING FOR DIABETES ??? OneTouch Ultra2 Meter Misc USE DIRECTED [...] for Pain. (Patient not taking: Reported on 03/20/2021) 15 tablet 0 ??? polyethylene glycoL (Miralax) [...] Daily at Noon. 90 capsule 12 ??? gabapentin (Neurontin) 100 mg Capsule Take 2 capsules by mouth 2 times daily. 90 capsule 12 ??? gabapentin (Neurontin) 100 mg Capsule Take 2 capsules by mouth nightly as needed (sciatic leg pain). 90 capsule 12 ??? atorvastatin (Lipitor) 40 [...] facility-administered medications on file prior to visit. Social History Socioeconomic History ??? Marital status: Spouse name: Not on file ??? Number of children: Not on file ??? Years of education: Not on file ??? Highest education level: Not on file Occupational History ??? Not on file Tobacco Use ??? Smoking status: Never Smoker ??? Smokeless tobacco: Never Used ??? Tobacco comment: uses medical [employer] Vaping Use ??? Vaping Use: Never used [...] Strain: ??? Difficulty of Paying Living Expenses: Not on file Food Insecurity: ??? Worried About Running Out of Food in the Last Year: Not on file ??? Ran Out of Food in the Last Year: Not on file Transportation Needs: ??? Lack of Transportation (Medical): Not on file ??? Lack of Transportation (Non-Medical): Not on file Physical Activity: ??? Days of Exercise per Week: Not on file ??? Minutes of Exercise per Session: Not on file ROS: negative except as noted in HPI Physical Exam: General: NAD, appears well Neuro: Alert and oriented, motor sensory grossly intact Ear, Nose, Throat: Nose and mouth covered by mask Lungs: CTA Heart: RRR Abd: Soft, NT, ND, no palpable pulsatile masses Extremity - [place], warm, no ulceration, brisk capillary refill, no edema Vascular: R L Carotid 2/2 bruit (n) 2/2 bruit (n) Radial 2/2 2/2 Femoral 2/2 2/2 Popliteal 2/2 2/2 DP 2/2 2/2 PT 2/2 2/2 Lab Results Component Value Date NA 137 05/15/2021 K 4.7 05/15/2021 CL 103 05/15/2021 CO2 25 05/15/2021 BUN 38 (H) 05/15/2021 CREATININE 1.60 (H) 05/15/2021 GLUCOSE 95 05/13/2021 GLUCFASTING 100 (H) 05/15/2021 CALCIUM 10.3 05/15/2021 ESTGFR 33 (L) 05/15/2021 Studies: ABIs today 06/13/21 Findings: ?? Right ?Pressure (mm Hg) ?? ADRY ??Waveform ? TBI ?? Brachial Artery ?124 ? Common Femoral Artery ?Triphasic ? Popliteal Artery ? Biphasic-Rev ? Dorsalis Pedis (Ankle) Artery ?140 ? 1.09 ??Triphasic ? Posterior Tibial (Ankle) Artery ??136 ? 1.06 ??Triphasic ? Great Toe ?78 ?0.61 ? Left ? Pressure (mm Hg) ?? ADRY ??Waveform ? TBI ?? Brachial Artery ?128 ? Common Femoral Artery ?Triphasic ? Popliteal Artery ? Biphasic-Rev ? Dorsalis Pedis (Ankle) Artery ?122 ? 0.95 ??Triphasic ? Posterior Tibial (Ankle) Artery ??132 ? 1.03 ??Triphasic ? Great Toe ?80 ?0.63 ? Interpretation: ?? RIGHT: Mild arterial occlusive disease at the foot/toe level with no significant lower extremity arterial occlusive disease to the ankle at rest. ?? LEFT: Mild arterial occlusive disease at the foot/toe level with no significant lower extremity arterial occlusive disease to the ankle at rest. Assessment/Plan: 66 year old female with a history of HFrEF, unstable angina, CAD, ASCVD, TIA, T2DM, HLD, HTN, CKD, diabetic neuropathy, ACD, GERD, RLS, anxiety, delerium, nonalcoholic steatohepatitis. Here with question of claudication of bilateral feet but ABIs show only mild occlusive disease, ph ysical exam indicates well-perfused BLEs and characteristics of pain more c/w neuropathy. Briefly discussed management for this but will refer back to PCP to manage. Encouraged to f/u with us with any concerns for claudication symptoms. Continue plavix, atorva, ASA and active lifestyle. Hannah Antonio, MSN, ASSOCIATE ENTERTAINMENT EDITOR Vascular Surgery documented in this encounter Plan of Treatment Upcoming Encounters Date Type Department Care Team (Latest Contact Info) Description 05/08/2024 10:30 AM EDT Hospital [place] [phone] [facility] [place] [address] 05/08/2024 10:30 AM EDT - 05/08/2024 11:00 AM [place] [phone] [facility] [place] [address] INJECTION, ANESTHETIC AGENT AND/OR STEROID, TRANSFORAMINAL EPIDURAL, LUMBAR OR SACRAL, SINGLE LEVEL (WRVU 1.9) 05/12/2024 1:00 PM EDT Office Visit Cardiology at [address] [phone] [facility] [place] [address] 05/29/2024 10:15 AM EDT TH Visit (TeleHealth) [place] [address] [facility] [place] [address] Scheduled Procedures Name Priority Associated Diagnoses Date/Ti me INJECTION, ANESTHETIC AGENT AND/OR STEROID, TRANSFORAMINAL EPIDURAL, LUMBAR OR SACRAL, SINGLE LEVEL (WRVU 1.9) Left lumbar radiculopathy 05/08/2024 10:30 AM EDT documented as of this encounter Visit Diagnoses Diagnosis Pain in both feet Pain in limb Left lumbar radiculopathy Thoracic or lumbosacral neuritis or radiculitis, unspecified documented in this encounter Care Teams Strip Catcher Relationship Specialty Start Date End Date Asia Gil DO [address] [facility] [place] [address] PCP - General Family Medicine 07/09/20 documented as of this encounter
--- OUTSIDE RECORDS SUMMARY | 2024-05-02 12:07 | XMS_ITS | Encounter Summary ---
Author Organization [facility] [place] [address] Care Team Providers Care Envelope Adjuster Name Role Phone Asia Gil DO Primary Care Provider +1- [phone] Reason for Visit * Reason Onset Date Comments Medication Refill 11/14/2021 Encounter Details Date Type Department Care Team (Late st Contact Info) Description 11/06/2021 Telephone Cardiology at [address] [phone] eBrnardo Ramirez, fine arts instructor Refill Social History Tobacco Use Types Packs/Day [...] encounter Miscellaneous Notes * Addendum Note - Bernardo Ramirez RN - 11/14/2021 1:07 PM ESTAddended by: BERNARDO RAMIREZ on: 11/14/2021 01:07 PM Modules accepted: Orders * Telephone Encounter - Bernardo Ramirez RN - 11/14/2021 12:[address] Cruz's review and direction. BMP order prepped and pended for his signature. Call to Mrs. Coley. Pleasant connection. Reviewed Dr. Cruz's note below (verbatim): Chase, Thanks for the labs. I have noted: ?? Follow up BMP now available, follow up after restart of Lisinopril 09/09/2021. Last known (prior) check 05/15/2021 - baseline Cre 1.6, BUN 28, K+ = 4.7 Newest - from [facility] Lab dated 11/13/2021 - Cre 2.1, BUN 55, K+ = 5.5 ?? This is an acceptable change. Continue Lisinopril. Lets get another BMP in about 2-3 weeks to ensure stability of Cr and K+. Antonio Cruz MD Agreeable to continue Lisinopril. Importantly, feeling well; looking forward to extended vacation. Agrees to present to [facility] lab for repeat BMP upon her return - (approx 3 weeks). Chase Ramirez RNlatexer Team Nurse [facility] Ambulatory Cardiology * Telephone Encounter - Antonio Cruz MD - 11/14/2021 12:10 PM EST Chase, Thanks for the labs. I have noted: Follow up BMP now available, follow up after restart of Lisinopril 09/09/2021. Last known (prior) check 05/15/2021 - baseline Cre 1.6, BUN 28, K+ = 4.7 Newest - from [facility] Lab dated 11/13/2021 - Cre 2.1, BUN 55, K+ = 5.5 This is an acceptable change. Continue Lisinopril. Lets get another BMP in about 2-3 weeks to ensure stability of Cr and K+. Antonio Cruz MD * Addendum Note - Bernardo Ramirez RN - 11/06/2021 3:57 PM ESTAddended by: BERNARDO RAMIREZ on: 11/06/2021 03:57 PM Modules accepted: Orders * Telephone Encounter - Bernardo Ramirez RN - 11/06/2021 3:46 PM EST Successful connection with Ms. Coley. Very pleasant connection. Reviewed concerns for outstandingBMP - in relation to her refill request for her Lisinopril. Admits to forgetting to present for same. Understands importance and rationale. Commits to presenting tomorrow for follow up BMP. Identifies [facility] Hospital Lab as her preferred site. Will call tomorrow in advance of her visit. New order faxed today to insure appointment. Includedwere instructions on where to return results by fax. Fax confirmation receipt noted. Importantly, feeling well. Planning extended vacation soon. Requested Prescriptions Pending Prescriptions Disp Refills ??? lisinopriL (Zestril) 5 mg Tablet 90 tablet 3 Sig: Take 1 tablet by mouth daily. Refill request for 90 days with 3 refills prepped and advanced. Reviewed Epic record and last office note from Dr. Cruz dated 09/09/2021. We will restart lisinopril at 5 mg daily. We will reorder a BMP to evaluate its impact on her creatinine and potassium Refill prepped and forwarded to Provider for authorization Chase Ramirez RNlatexer Team Nurse [facility] Ambulatory Cardiology * Telephone Encounter - Bernardo Ramirez RN - 11/06/2021 1:23 PM EST Images from the original note were not included. Appreciate VM prompt from Ms. Coley. Seeking refill of her prescribed Lisinopril. Additional or background context: Noted clerical error with prior refill request dated 09/10/2021 (based on incorrect assumption): Comment: Patient requests 90 days supply Reason for Refusal: Request already responded to by other means Reason for Refusal Comment: Dr. Cruz ordered it yesterday 09/09 at her visit. Refused By: Jyoti Moreno RN Reviewed last Telehealth note dated 09/09/2021. This prescription (for 30 days supply) was generated as a result of that visit. Noted plan for resumption of her Lisinopril with follow up BMP (as below): Of note, her lisinopril was stopped. I reviewed her creatinine which is stable around 1.5 to 1.6 mg/dL. We will restart lisinopril at 5 mg daily. We will reorder a BMP to evaluate its impact on her creatinine and potassium. Also noted interim review and direction from Dr. Cruz dated 09/15/2021 Antonio Cruz MD Shields, Thomas A, RODERICK Stone, Reviewed the stress test. 7 METs, negative for ischemia, low Davis Treadmill Score. Continue med Rx. Antonio Call placed to Ms. Coley in follow up. Detailed message left on voice [employer] machine.Encouraged to call to review prescription for Lisinopril; to develop plan for follow up BMP (still outstanding), as well as to review results of Stress Test above. Direct contact number and office hours provided. Awaiting return call. Chase Ramirez, latexer Team Nurse [facility] Ambulatory Cardiology documented in this encounter Plan of Treatment Upcoming Encounters Date Type Department Care Team (Latest Contact Info) Description 05/08/2024 10:30 AM EDT Hospital [place] [address] [facility] [place] [address] 05/08/2024 10:30 AM EDT - 05/08/2024 11:00 AM [place] [phone] Bk Contreras MD [facility] [place] [address] INJECTION, ANESTHETIC AGENT AND/OR STEROID, TRANSFORAMINAL EPIDURAL, LUMBAR OR SACRAL, SINGLE LEVEL (WRVU 1.9) 05/12/2024 1:00 PM EDT Office Visit Cardiology at [address] [phone] [facility] [place] [address] 05/29/2024 10:15 AM EDT TH Visit (TeleHealth) [facility] [place] [phone] [facility] [place] [address] Scheduled Procedures Name Priority Associated Diagnoses Date/Ti me INJECTION, ANESTHETIC AGENT AND/OR STEROID, TRANSFORAMINAL EPIDURAL, LUMBAR OR SACRAL, SINGLE LEVEL (WRVU 1.9) Left lumbar radiculopathy 05/08/2024 10:30 AM EDT documented as of this encounter Visit Diagnoses Diagnosis Acute on chronic congestive heart failure, unspecified heart failure type ASCVD (arteriosclerotic cardiovascular disease) Unspecified cardiovascular disease Chronic kidney disease, unspecified CKD stage HFrEF (heart failure with reduced ejection fraction) Unstable angina Intermediate coronary syndrome Left lumbar radiculopathy Thoracic or lumbosacral neuritis or radiculitis, unspecified documented in this encounter Care Teams Envelope Adjuster Relationship Specialty Start Date End Date Asia Gil DO [address] [place] [address] PCP - General Family Medicine 07/09/20 documented as of this encounter
--- OUTSIDE RECORDS SUMMARY | 2024-05-02 12:07 | XMS_ITS | Encounter Summary ---
Author Organization [facility] [place] [address] Care Team Providers Care Machine Tack Puller Name Role Phone Asia Gil DO Primary Care Provider [phone] Reason for Referral * Consultation (Routine) - Closed Specialty Diagnoses / Procedures Referred By Leonel chin Referred To Contact Vascular Surgery Diagnoses Hypertension, unspecified type Antonio Cruz MD [facility] [place] [address] [facility] [address] [place] [address] Referral ID Status Reason Start Date Expiration Date V isits Requested Visits Authorized [id number] Closed Consult, Test & Treat 05/21/2021 05/21/2022 1 1 Encounter Details Date Type Department Care Team (Late st Contact Info) Description 05/21/2021 Orders Only Cardiology at [address] [phone] Antonio Cruz MD [facility] [place] [address] Hypertension, unspecified type Social History Tobacco Use Types [...] as of this encounter Progress Notes * Marian Calvin RN - 05/21/2021 11:[address] Nancy Stone, Appreciate VM prompt from Dr. Flores. I agree with her, please refer Toyin Coley to [facility] for claudication symptom evaluation and treatment. Thank you. Antonio Cruz MD Call to Vascular Clinic and was assured the referral would say vascular surgery. Message to Toyin left on designated line that referral was placed. documented in this encounter Plan of Treatment Upcoming Encounters Date Type Department Care Team (Latest Contact Info) Description 05/08/2024 10:30 AM EDT Hospital [place] [address] Bk Contreras MD [facility] [place] [address] 05/08/2024 10:30 AM EDT - 05/08/2024 11:00 AM [place]T [place] [phone] Bk Contreras MD [facility] [place] [address] INJECTION, ANESTHETIC AGENT AND/OR STEROID, TRANSFORAMINAL EPIDURAL, LUMBAR OR SACRAL, SINGLE LEVEL (WRVU 1.9) 05/12/2024 1:00 PM EDT Office Visit Cardiology at [address] [phone] Sadi Styles MD [facility] [place] [address] 05/29/2024 10:15 AM EDT TH Visit (TeleHealth) [facility] [place] [address] Natalee Sanchez APRN [facility] [place] [address] Scheduled Procedures Name Priority Associated Diagnoses Date/Ti me INJECTION, ANESTHETIC AGENT AND/OR STEROID, TRANSFORAMINAL EPIDURAL, LUMBAR OR SACRAL, SINGLE LEVEL (WRVU 1.9) Left lumbar radiculopathy 05/08/2024 10:30 AM EDT Scheduled Referrals Name Type Priority Associated Diagnoses Orde r Schedule Referral to Vascular Surgery Outpatient Referral Routine Hypertension, unspecified type Ordered: 05/21/2021 documented as of this encounter Visit Diagnoses Diagnosis Hypertension, unspecified type Left lumbar radiculopathy Thoracic or lumbosacral neuritis or radiculitis, unspecified documented in this encounter Care Teams Machine Tack Puller Relationship Specialty Start Date End Date Asia Gil DO [address] [place] [address] PCP - General Family Medicine 07/09/20 documented as of this encounter
--- OUTSIDE RECORDS SUMMARY | 2024-05-02 12:08 | XMS_ITS | Encounter Summary ---
Author Organization [facility] Address [facility] [place] [address] Care Team Providers Care Improvement Auditor Name Role Phone Asia Gil DO Primary Care Provider [phone] Reason for Visit * Auth/Cert Specialty Diagnoses / Procedures Referred By Contjaymie t Referred To Contact Diagnoses ASCVD (arteriosclerotic cardiovascular disease) [I25.10] Procedures PRG CATH PLMT LEFT HEART CATH & ARTS W/INJ & ANGIO IMG S&I CARDIAC CATHETERIZATION CORONARY ANGIOGRAPHY; W LHC,POSSIBLE PCI Referral ID Status Reason Start Date Expiration Date Visits Re quested Visits Authorized [id number] 1 1 Encounter Details Date Type Department Care Team (Latest Contact Info) Description 04/11/2021 9:38 AM EDT - 04/12/2021 3:00 PM EDT Hospital Encounter [place] [address] Antonio Cruz MD [facility] [place] [address] [place] [address] ASCVD (arteriosclerotic cardiovascular disease) Discharge Disposition: Home Social History Tobacco Use [...] Sign Reading Time Taken Comments Blood Pressure 125/53 04/12/2021 12:00 PM EDT Pulse 65 04/12/2021 3:30 AM EDT Temperature 37.2 ??C (99 ??F) 04/12/2021 7:37 AM EDT Respiratory Rate 16 04/12/2021 3:30 AM EDT Oxygen Saturation 98% 04/12/2021 7:37 AM EDT Inhaled Oxygen Concentration - - Weight 73.5 kg (162 lb) 04/11/2021 10:28 AM EDT Height 160 cm (5' 3) 04/11/2021 10:28 AM EDT Body Mass Index 28.7 04/11/2021 10:28 AM EDT documented in this encounter Discharge Summaries * Jacobo Guajardo MD - 04/11/2021 6:22 PM EDT Images from the original note were not included. Discharge Summary Patient Name: Toyin Coley Patient Age: 65 y.o. Language: [place] Citizen Race: White Ethnicity: Not nor Admit date: 04/11/2021 Discharge date and time: 04/12/2021 1000 Attending Physician: Antonio Cruz MD Discharge Physician: Jacobo Guajardo MD Follow-up Recommendations for Providers: - dual antiplatelet regimen as follows: - aspirin 81 mg daily lifelong - clopidogrel 75 mg daily for at least 6 months after PCI for stable ischemic heart disease - recommend follow up with cardiology in 3-4 weeks Inpatient Provider Contact Information: Antonio Cruz MD - attending Jacobo Guajardo MD - Fellow Discharge Diagnoses (Hospital Problems) and Secondary Diagnoses (Chronic Problems): Active Hospital Problems Diagnosis ??? CAD (coronary artery disease) Resolved Hospital Problems No resolved problems to display. Active Non-Hospital Problems Diagnosis ??? Pancreatic fluid collection with possible abscess ??? Ezybo-kl-anathlo kidney injury ??? Anemia of chronic disease [...] pain Added automatically from request for surgery [id number] ??? Anxiety ??? Diabetic neuropathy ??? Nonalcoholic steatohepatitis ??? Restless legs syndrome (RLS) ??? CKD (chronic kidney disease) ??? Delirium ??? Hyperlipidemia Off statin due to foot pain side effect ??? Hypertension ??? Diabetes mellitus type 2, uncomplicated ??? Hx-TIA (transient ischemic attack) ??? GERD (gastroesophageal reflux disease) ??? Environmental allergies Display name was automatically updated by a utility run on 01/13/2012 Operations/Major Procedures: Operations: Procedure(s) with comments: CARDIAC CATHETERIZATION - Please schedule cardiac catheterization and PCI of the LAD CORONARY ANGIOGRAPHY; W C,POSSIBLE PCI History of Presentation: Toyin Coley??is a 65 y.o.??female??PMH SIMMONS cirrhosis (biopsy confirmed 2007), prior lap-ronnie,HTN, HLD, DMII c/b diabetic neuropathy, GERD, prior TIA, & CKD??III/A2-3??recently discharged after being admitted with pancreatitis re- presenting with shortness of breath found to have 40lb weight gain, lower extremity edema, bibasilar crackles, pulmonary vascular congestion, and abdominal wall anasarca consistent with volume overload.??During that admission in February 2021, pro-BNP elevated andEF reduced on echo, consistent with CHF exacerbation. ??Troponin on admission was elevated to 0.03,which remained flat on repeat lab. EKG showed T wave inversions which had been present in the past, and she has denied chest pain throughout admission.??TTE here reveals reduced EF with WMAs concerning for ischemia in the LAD distribution vs stress cardiomyopathy given apical kinesis demonstrated on Echo.??She??underwent??a left heart cath to evaluate her new onset LV dysfunction and low level NST PAPO??in February 2021 and was found to have??severe 2 vessel CAD of the LAD and RCA and moderate but hemodynamically significant LCX??disease.? She was referred for CABG but was felt not to be a good surgical candidate. She presented for planned PCI of the calcified LAD. ?? Hospital Course: The patient was admitted following cardiac catheterization for overnight monitoring and observation. The patient did well overnight without significant chest pain or arrhythmias on telemetry. The right radial access site was evaluated and the radial pulse was palpable with no evidence of vascular co mpromise to the right groin/hand. A repeat ECG was reviewed with no evidence of active ischemia. VSand renal function remained stable. The patient ambulated with nursing without chest discomfort or exertional dyspnea. The patient met criteria for discharge, and was released home in stable condition. Functional and Cognitive Status: Independent in ALDs and IADLs, A&O x 3, at baseline Important Studies and Lab Data: Labs: Lab Results Component Value Date WBC 9.4 04/11/2021 HGB 10.0 (L) 04/11/2021 HCT 32.5 (L) 04/11/2021 PLATELET 252 04/11/2021 No results for input(s): INR in the last 168 hours. Lab Results Component Value Date NA 139 04/11/2021 K 5.1 (H) 04/11/2021 CL 103 04/11/2021 CO2 25 04/11/2021 BUN 49 (H) 04/11/2021 CREATININE 1.51 (H) 04/11/2021 No results for input(s): CK, TROPONINT in the last 168 hours. Lab Results Component Value Date CHLPL 152 03/20/2021 HDL 39 03/20/2021 CHOLHDL 3.9 03/20/2021 TRIG 295 03/20/2021 LDLCHOL 54 03/20/2021 LDLDIRECT 17 02/08/2021 Studies: Cath Report RESULTS: Hemodynamics: Hemodynamic assessment demonstrates??moderately elevated??LVEDP of 20??mmHg. ?? Coronary circulation: LAD: Angiography showed??95% calcified lesions in an angulated bend. The distal LAD is mildly diffusely diseased. The Diag1 has mild diffuse disease.? Lesion #1: PCI of the mid LAD 95% tandem lesions. A successful PCI was performed on the 95% heavily calcified tandem lesions in the mid LAD. We used a 6 Fr IKARI Left 4.0 guide. We administered heparin and loaded PLavuix. We used a 6 Fr Telescope for additional supprt in these calcified lesions. We wired the LAD with a short Runthrough wire, the wire could not be advanced distally enough as it was being gripped by the calcified lesions and wire bias due to angulation. We attempted to deliver a 2.5 x 12 mm NC balloon, but it would not cross thecalcified lesions. We next went in with a 1.5 x 15 mm Takeru balloon and crossed the lesion with significant difficulty, and dilated the lesions to 24 bernie pressure x 6. With some difficulty we were ne xt able to push a 2.5 x 12 mm NC balloon in the mid LAD and dilated the lesions to 24 bernie x 4 to crack the calcium. We then introduced the Telescope deep and with its support delivered a 2.5 x 24 mm SYNERGY XD ASIM stent, and deployed it covering both lesions at 18 bernie. We attempted IVUS but it would not cross the second angulated bend in the vessel. IVUS of the proximal stent segment showed it was well apposed and no dissections. Following intervention there was excellent angiographic appearance and 0% residual stenosis. There were no site complications. Pending Studies and Lab Data: None Discharge Conditions/Prognosis: Good Discharge to: Home Updated Allergies/ADRs: Allergies Allergen Reactions ??? Benzodiazepines Other (See Comments) Paradoxical reaction to benzodiazepines ??? House Dust ??? Hydrocodone-Acetaminophen Itching ??? Metoclopramide ??? Mold Extracts ??? Pollen Extracts ??? Propoxyphene Hcl Nausea And Vomiting ??? Unknown [Unclassified Drug] Most environmental allergies: grass, workman, trees,pollen Immunizations Given this Hospitalization: There is no immunization history on file for this patient. Discharge Medications: Your Medications Continued medications, unchanged Dose Details acetaminophen 325 [...] 40 mg Quantity: 90 tablet Refills: 3 calcium carbonate 200 mg calcium (500 mg) [...] 30 mg Quantity: 30 tablet Refills: 11 fenofibrate 48 mg Tab Commonly known as: TRICOR Take 1 tablet by mouth daily. 48 mg Quantity: 90 tablet Refills: 0 * gabapentin 100 mg Cap Commonly known [...] 200 mg Quantity: 90 capsule Refills: 12 lisinopriL 2.5 mg Tab Commonly known as: Prinivil;Zestril Take 1 tablet by mouth daily. 2.5 mg Quantity: 90 tablet Refills: 3 magnesium oxide 400 mg (241.3 mg magnesium) [...] 50 mg Quantity: 30 tablet Refills: 12 metroNIDAZOLE 500 mg Tab Commonly known as: Flagyl Take 1 tablet by mouth 3 times daily. 500 mg Quantity: 14 tablet Refills: 0 oxyCODONE 5 mg Tab Commonly known as: Roxicodone Take 1 tablet by mouth every 8 hours as needed for Pain. 5 mg Quantity: 15 tablet Refills: 0 pantoprazole EC 40 mg Tbec Commonly known as: Protonix Take 1 tablet by mouth daily. 40 mg Quantity: 90 tablet Refills: 3 polyethylene glycoL 17 gram Pwpk Commonly known as: Miralax Take 17 g by mouth daily. 17 g Quantity: 14 each Refills: 0 torsemide 20 mg Tab Commonly known as: Demadex Take 1 tablet by mouth daily. 20 mg Quantity: 30 tablet Refills: 1 traZODone 50 mg Tab Commonly known as: Desyrel Take 0.5 tablets by mouth nightly. 25 mg Quantity: 45 tablet Refills: 3 * This list has 3 medication(s) that are the same as other medications prescribed for you. Read thedirections carefully, and ask your doctor or other care provider to review them with you. Smoking Status at Discharge: Social History Tobacco Use Smoking Status Never Smoker Smokeless Tobacco Never Used Tobacco Comment uses medical wes Instructions Given to Patient at Discharge: There are no outpatient Patient Instructions on file for this admission. General Instructions None Future Appointments and Orders Future Appointments and Orders Future Appointments Provider Department Dept Phone 06/19/2021 9:00 AM Antonio Cruz MD Cardiology at [facility] Arrive at: [facility] [phone] Discharge References/Attachments None Jacobo D Guajardo, MD Interventional Cardiology 04/11/21 6:22 PM [facility] Pager: [phone] documented in this encounter Medications at Time of Discharge Medication Sig Dispensed Refills Start Date End Date nitroGLYcerin (Nitrostat) 0.4 mg Tablet, Sublingual Take 0.4 mg by mouth as needed. 07/08/2020 ondansetron (Zofran) 4 mg Tablet Take 4 mg by mouth as needed. 02/27/2021 OneTouch Ultra2 Meter Misc USE DIRECTED TO [...] by mouth daily. 90 tablet 3 01/27/2021 lidocaine-prilocaine (EMLA) Cream Apply 30 Applications topically as needed. 03/31/2021 02/24/2022 fenofibrate (TRICOR) 48 mg TabletIndications:Hype rlipidemia, unspecified hyperlipidemia type Take 1 tablet by mouth daily. 90 tablet 04/01/2021 05/15/2021 lisinopriL (Prinivil;Zestril) 2.5 mg Tablet Take 1 tablet by mouth daily. 90 tablet 3 03/20/2021 05/15/2021 torsemide (Demadex) 20 mg Tablet Take 1 tablet by mouth daily. 30 tablet 1 02/21/2021 05/15/2021 metroNIDAZOLE (Flagyl) 500 mg Tablet Take 1 tablet by mouth 3 times daily. 14 tablet 02/21/2021 05/13/2021 clopidogreL (Plavix) 75 mg Tablet Take 1 [...] of this encounter Progress Notes * Antonio Cain RN - 04/12/2021 9:10 AM EDT Pt ready for discharge. IV's removed and belongings have been reviewed. Discharge instructions havebeen reviewed with the patient and all questions and concerns have been addressed. * Marta Knight RN - 04/11/2021 5:24 PM EDTSummary: Arrival Patient arrived from PACU. Vital signs stable. Patient voiding without difficulties. Surgical incisions CDI. No complaints of pain. Will continue to monitor. documented in this encounter H&P Notes * Jacobo Guajardo MD - 04/11/2021 6:04 PM EDT Interventional Cardiology Post-PCI H&P Reason for Admission: s/p PCI History: Toyin Coley??is a 65 y.o.??female??PMH SIMMONS cirrhosis (biopsy confirmed 2007), prior lap-ronnie,HTN, HLD, DMII c/b diabetic neuropathy, GERD, prior TIA, & CKD??III/A2-3??recently discharged after being admitted with pancreatitis re- presenting with shortness of breath found to have [...] wave inversions which had been present in the past, and she has denied chest pain throughout admission.??TTE here reveals reduced EF with WMAs concerning for ischemia in the LAD distribution vs stress cardiomyopathy given apical kinesis demonstrated onEcho.??She underwent a left heart cath to evaluate her new onset LV dysfunction and low level NSTEMI in February 2021 and was found to have severe 2 vessel CAD of the LAD and RCA and moderate but hemodynamically significant LCX??disease.?? She was referred for CABG but was felt not to be a good surgical candidate. She is here today for planned PCI of the calcified LAD. This patient is admitted post PCI for IV hydration, pain management, access site management in the setting of anticoagulation, telemetry monitoring, evaluation of their medical condition, and cardiacrehabilitation. PMH: Patient Active Problem List Diagnosis ??? CAD (coronary artery disease) ??? Pancreatic fluid collection with possible abscess ??? Tjmrc-mm-bubgncf kidney injury ??? Anemia of chronic disease [...] pain Added automatically from request for surgery [id number] ??? Anxiety ??? Diabetic neuropathy ??? Nonalcoholic steatohepatitis ??? Restless legs syndrome (RLS) ??? CKD (chronic kidney disease) ??? Delirium ??? Hyperlipidemia Off statin due to foot pain side effect ??? Hypertension ??? Diabetes mellitus type 2, uncomplicated ??? Hx-TIA (transient ischemic attack) ??? GERD (gastroesophageal reflux disease) ??? Environmental allergies Display name was automatically updated by a utility run on 01/13/2012 Outpatient Medications Marked as Taking for the 04/11/21 encounter (Hospital Encounter) Medication Sig Dispense Refill ??? fenofibrate (TRICOR) 48 mg Tablet Take 1 tablet by mouth daily. 90 tablet 0 ??? lisinopriL (Prinivil;Zestril) 2.5 mg Tablet Take 1 tablet by mouth daily. 90 tablet 3 ??? torsemide (Demadex) 20 mg Tablet Take 1 tablet by mouth daily. 30 tablet 1 ??? aspirin 81 mg Tablet, Chewable Take [...] 17 g by mouth daily. 14 each 0 ??? acetaminophen (Tylenol) 325 [...] tablet by mouthdaily. 30 tablet 12 ??? pantoprazole EC (Protonix) 40 mg Tablet, Delayed Release (E.C.) Take 1 tablet by mouth daily. 90 tablet 3 Allergies as of 04/01/2021 - Review Complete 03/24/2021 Allergen Reaction Noted ??? Benzodiazepines Other (See Comments) 04/06/2020 ??? House dust ??? Hydrocodone-acetaminophen Itching ??? Metoclopramide 03/26/2020 ??? Mold extracts ??? Pollen extracts 03/26/2020 ??? Propoxyphene hcl Nausea And Vomiting ??? Unknown [unclassified drug] 05/25/2011 Social History Socioeconomic History ??? Marital status: [...] Sexual Activity ??? Alcohol use: Not Currently ??? Drug use: Yes Frequency: 7.0 times per week Types: Marijuana Comment: nightly-has card ??? Sexual activity: Not Currently Other Topics [...] Week: ??? Minutes of Exercise per Session: Physical Exam BP 127/49 (BP Location (NBP): Left arm, Patient Position: Sitting) Pulse 68 Temp 36.7 ??C (98.1??F) (Oral) Resp 13 Ht 160 cm (5' 3) Wt 73.5 kg (162 lb) SpO2 100% BMI 28.70 kg/m?? General: well-appearing, NAD HEENT: NC/AT, anicteric sclerae, OP clear, MMM Neck: supple, no LAD, no bruits or JVD Lungs: clear without W/R/R CV: RRR, S1, S2, no M/R/G Abd: Nl BS, soft, NT, ND, obese Ext: no C/C/Edema Vascular: 2+ radial, femoral, and intact distal pulses b/l Assessment/ Plan: 1. CAD, s/p PCI to mid LAD - admit for overnight monitoring - telemetry, serial ECGs, - continue dual antiplatelet therapy - IVF - continue BB, ACEi, statin - monitor access site - cardiac rehab consult - anticipate discharge in am 2. HTN, follow up trend and titrate therapy PRN. 3. Dyslipidemia, continue statin Jacobo Guajardo MD Interventional Cardiology P: [phone] Jacobo Guajardo MD 04/11/2021 6:09 PM * Jacobo Guajardo MD - 04/11/2021 12:03 PM EDT Images from the original note were not included. Pre Cardiac Catheterization Note 65 y.o. female presents with worsening DAVIS who is here today for planned PCI. Patient last saw Dr. Cruz on 03/20/2021, please see his note for details. She is here today for planned of most likely LAD. She took her ASA and plavix today. Denies planned upcoming surgeries. Denies recent or ongoing bleeding events. BP 117/51 Pulse 59 Temp 35.9 ??C (96.6 ??F) (Temporal) Resp 14 Ht 160 cm (5' 3) Wt 73.5 kg (162 lb) SpO2 100% BMI 28.70 kg/m?? Gen: Pleasant female in no apparent distress, able to lay flat Heart: Regular rate and rhythm, s1/s2 of nl character and amplitude, no murmurs/rubs/gallops. JVP not elevated Pulm: Clear to auscultation bilaterally. Ext: Bilateral Dewayne's Test demonstrates adequate reperfusion via the ulnar artery alone. Femoral arteries are with adequate upstroke and without overlying evidence of infection. DP/PT 2+ symmetrically. Neuro: sans focal deficit Current Outpatient Medications Medication Instructions ??? acetaminophen (TYLENOL) 650 mg, Oral, EVERY 4 HOURS PRN ??? aspirin 81 mg, Oral, DAILY ??? atorvastatin (LIPITOR) 40 mg, Oral, EVERY EVENING ??? calcium carbonate (TUMS) 500-1,000 mg, Oral, EVERY 4 HOURS PRN ??? clopidogreL (PLAVIX) 75 mg, Oral, DAILY ??? DULoxetine DR (CYMBALTA) 30 mg, Oral, DAILY ??? fenofibrate (TRICOR) 48 mg, Oral, DAILY ??? gabapentin (NEURONTIN) 100 mg, Oral, DAILY AT NOON ??? gabapentin (NEURONTIN) 200 mg, Oral, 2 TIMES DAILY ??? gabapentin (NEURONTIN) 200 mg, Oral, NIGHTLY PRN ??? lisinopriL (PRINIVIL;ZESTRIL) 2.5 mg, Oral, DAILY ??? magnesium oxide (MAG-OX) 400 mg, Oral, 2 TIMES DAILY ??? melatonin 6 mg, Oral, NIGHTLY ??? metoprolol succinate XL (TOPROL-XL) 50 mg, Oral, DAILY ??? metroNIDAZOLE (FLAGYL) 500 mg, Oral, 3 TIMES DAILY ??? oxyCODONE (ROXICODONE) 5 mg, Oral, EVERY 8 HOURS PRN ??? pantoprazole EC (PROTONIX) 40 mg, Oral, DAILY ??? polyethylene glycoL (MIRALAX) 17 g, Oral, DAILY ??? torsemide (DEMADEX) 20 mg, Oral, DAILY ??? traZODone (DESYREL) 25 mg, Oral, NIGHTLY Last 3 wbc, hgb, hct plt Recent Labs 04/11/21 1009 03/20/21 1018 02/21/21 0309 WBC 9.4 9.2 15.6* HGB 10.0* 9.1* 7.0* HCT 32.5* 29.8* 22.0* PLATELET 252 203 328 Last 3 Lytes Recent Labs 04/11/21 1009 03/20/21 1018 03/13/21 1115 02/21/21 0309 NA 139 139 -- 133* K 5.1* 4.3 -- 4.1 CL 103 99 -- 97* CO2 25 28 -- 27 BUN 49* 34* -- 30* CREATININE 1.51* 1.38* 1.26* 1.28* Sedation evaluation: Mallampati class: II: tonsillar pillars are blocked by the tongue ASA: 2: Patient with mild systemic disease Previous Catheterization: February 2021 The indications, expected benefits, and potential risks of heart catheterization were reviewed in detail with the patient. The potential for , heart attack, stroke, kidney failure, hemorrhage, allergic reaction, vascular complications and infection were reviewed in detail. The possibility of stenting and other percutaneous intervention, with associated risk, was reviewed. The possible need for emergent coronary artery bypass surgery was reviewed. Alternatives were discussed and the patient's questions were answered in full. Following this discussion, the patient consented to the procedure and signed a form attesting to this, which is in the chart. Jacobo Guajardo MD Salesperson [employer] PGY-6 P: [id number] documented in this encounter Miscellaneous Notes * Brief Op Note - Antonio Cruz MD - 04/11/2021 2:48 PM EDT Images from the original note were not included. [facility] [place] [address] CORONARY ANGIOGRAM AND PERCUTANEOUS CORONARY INTERVENTION REPORT Patient: Toyin Coley : 1955 MR number: [id number] Date of Service: 04/11/2021 Political Geographer: Antonio Cruz MD Fellow: Jacobo Guajardo MD INDICATION: Toyin Coley??is a 65 y.o.??female??with a medical [...] reduced on echo, consistent with CHF exacerbation. Troponin on admission was elevated to 0.03, which remained flat on repeat lab. EKG showed T wave inversions which had been present in the past, and she has denied chest pain throughout admission.??TTE here reveals reduced EFwith WMAs concerning for ischemia in the LAD distribution vs stress cardiomyopathy given apical kinesis demonstrated on Echo. She underwent a left heart cath to evaluate her new onset LV dysfunction and low level NSTEMI in February 2021 and was found to have severe 2 vessel CAD of the LAD and RCA and mod erate but hemodynamically significant LCX disease. We stopped that day to discuss Plavix candidacy or surgical candidacy with Dr. Gilmore's team. She was felt to not be a good surgical candidate. I sawher in clinic in March 2021 when she was still having signififcant anginal symptoms. She is now undergoing a PCI of the calcified LAD, for her symptoms of angina ?? PROCEDURES PERFORMED: ?? Left heart cath, coronary angiogram. ?? PCI of the LAD ?? IVUS of the LAD ?? PROCEDURE: ?? The risks, benefits and alternatives of the procedures and moderate sedation were explained to the patient and informed consent was obtained. The patient was brought to the cathode washer and placed on the table. Time out was performed. The planned puncture sites were prepped and draped in the usual sterile fashion. The patient was sedated for the procedure. Cardiac catheterization performed. ?? Rt Radial artery access. The puncture site was infiltrated with 2 % lidocaine. The vessel was accessed using the modified Seldinger technique, a wire was threaded into the vessel, and a 6 Fr glidesheath slender was advanced over the wire into the vessel. Vasodilators and heparin were given after access obtained. ?? Left coronary artery angiography. A 6 Fr IKARI Left 4.0 guide catheter was advanced to the aortaand positioned in the vessel ostia under fluoroscopic guidance. Angiography was performed in multiple projections. Intracoronary nitroglycerin was given in order to achieve maximal vasodilatation. ?? PCI of the LAD ?? IVUS of the LAD ?? Weight-based heparin was given for procedural anticoagulation to maintain an ACT of 250 seconds by Hemochron throughout the case. ?? Contrast given. 80 ml Optiray 350. ? At the end of the case, a Trans Radial Band was applied to the right wrist and the arterial sheath was removed with hemostasis obtained. The patient was transported to the post-procedure holding area in stable condition. ?? There were no procedural complications. ?? I provided direct [id number] monitoring of conscious sedation which was administered by an independent trained nurse. ?? RESULTS: Hemodynamics: Hemodynamic assessment demonstrates moderately elevated LVEDP of 20 mmHg. ?? Coronary circulation: ?? LAD: Angiography showed??95% calcified lesions in an angulated bend. The distal LAD is mildly diffusely diseased. The Diag1 has mild diffuse disease. ?? PCI REPORT: BEFORE: AFTER: Lesion #1: PCI of the mid LAD 95% tandem lesions. A successful PCI was performed on the 95% heavily calcified tandem lesions in the mid LAD. We used a 6 Fr IKARI Left 4.0 guide. We administered heparin and loaded PLavuix. We used a 6 Fr Telescope for additional supprt in these calcified lesions. We wired the LAD with a short Runthrough wire, the wire could not be advanced distally enough as it was being gripped by the calcified lesions and wire bias due to angulation. We attempted to deliver a 2.5 x 12 mm NC balloon, but it would not cross thecalcified lesions. We next went in with a 1.5 x 15 mm Takeru balloon and crossed the lesion with significant difficulty, and dilated the lesions to 24 bernie pressure x 6. With some difficulty we were next able to push a 2.5 x 12 mm NC balloon in the mid LAD and dilated the lesions to 24 bernie x 4 to crack the calcium. We then introduced the Telescope deep and with its support delivered a 2.5 x 24 mm SYNERGY XD ASIM stent, and deployed it covering both lesions at 18 bernie. We attempted IVUS but it would not cross the second angulated bend in the vessel. IVUS of the proximal stent segment showed it was well apposed and no dissections. Following intervention there was excellent angiographic appearance and 0% residual stenosis. There were no site complications. For [facility] CathPCI Registry Documentation: Culprit lesion/vessel: mid LAD 95% lesion. This was an ACC/AHA type C lesion for intervention. The lesion length is 20 mm. There was MOIZ 3 flow before the PCI procedure and MOIZ 3 flow after the PCIprocedure. SYNTAX score: Moderate Clinical Frailty Score: 4. SUMMARY AND THERAPEUTIC RECOMMENDATIONS: ?? Toyin Coley presents with significant angina and was not an optimal surgical candidate. We perfromed a PCI of the angulated and heavily calcified mid LAD using a 2.5 x 24 mm SYNERGY XD ASIM stent. She has LCX and RCA disease, which for now we will continue to medically manage. We will send her to cardiac rehab and re-evaluate her ischemic symptoms in clinic in 1-2 month sto see how she is tolerating the rehab, to decide further interventions. Please continue Aspirin 81 mg daily, Plavix and high intensity statin. ?? I was present during the entire procedure and personally dictated or confirmed the above report. ?? I advised cardiac rehab. ?? I was present during the entire procedure and personally dictated or confirmed the above report. Antonio Cruz MD MS NIC 04/11/2021 2:48 PM documented in this encounter Plan of Treatment Upcoming Encounters Date Type Department Care Team (Latest Contact Info) Description 05/08/2024 10:30 AM EDT Hospital Encounter Pain Management [place] [phone] Bk Contreras MD [facility] [place] [address] 05/08/2024 10:30 AM EDT - 05/08/2024 11:00 AM EDT Surgery Pain Management [place] [phone] Bk Contreras MD [facility] [place] [address] INJECTION, ANESTHETIC AGENT AND/OR STEROID, TRANSFORAMINAL EPIDURAL, LUMBAR OR SACRAL, SINGLE LEVEL (WRVU 1.9) 05/12/2024 1:00 PM EDT Office Visit Cardiology at [place] [phone] Sadi Styles MD [facility] [place] [address] 05/29/2024 10:15 AM EDT TH Visit (TeleHealth) [facility] Sp[facility] at [place] [phone] Natalee Sanchez APRN [facility] [address] Scheduled Procedures Name Priority Associated Diagnoses Date/Ti me INJECTION, ANESTHETIC AGENT AND/OR STEROID, TRANSFORAMINAL EPIDURAL, LUMBAR OR SACRAL, SINGLE LEVEL (WRVU 1.9) Left lumbar radiculopathy 05/08/2024 10:30 AM EDT documented as of this encounter Procedures Procedure Name Priority Date/Time Associated Diagnosis Comments BMP W/FASTING GLUCOSE Routine 04/12/2021 3:35 AM EDT HEMOGRAM Routine 04/12/2021 3:35 AM EDT DIFFERENTIAL, AUTOMATED Routine 04/12/2021 3:35 AM EDT HC CBC,PLT & AUTO DIFF Routine 3:35 AM EDT EKG 12-LEAD Routine 04/11/2021 3:51 PM EDT ASCVD (arteriosclerotic cardiovascular disease) CARDIAC CATHETERIZATION Routine 04/11/2021 3:50 PM EDT ASCVD (arteriosclerotic cardiovascular disease) EKG 12-LEAD Routine 04/11/2021 10:52 AM EDT ASCVD (arteriosclerotic cardiovascular disease) HC VENIPUNCTURE STAT 04/11/2021 10:09 AM EDT HEMOGRAM STAT 04/11/2021 10:09 AM EDT DIFFERENTIAL, AUTOMATED STAT 04/11/2021 10:09 AM EDT HC CBC,PLT & AUTO DIFF STAT 10:09 AM EDT documented in this encounter Results * (ABNORMAL) Differential, Automated (04/12/2021 3:35 AM EDT) Neutrophils % 53.0 % [facility] Neutr Abs (ANC) 4.62 1.70 - 6.10 x10(3)/[facility] Lymphocytes % 37.8 % [facility] Lymphocytes Abs 3.3(H) 0.9 - 3.2 x10(3)/[facility] Monocytes % 6.6 % [facility] Monocyte Abs 0.6 0.3 - 0.9 x10(3)/[facility] Eosinophils % 2.0 % [facility] Eosinophils Abs 0.2 0.0 - 0.4 x10(3)/[facility] Basophils % 0.5 % [facility] Basophils Abs 0.0 0.0 - 0.1 x10(3)/[facility] Immature Gran % 0.10 % [facility] Comment: Immature granulocytes(IG's)percentage and absolute count will include metamyelocytes, myelocytes, and promyelocytes. Blood smears from CBCs yielding IG's will be scanned manually for concordance. If this scan disagrees with the automated IG or if promyelocytes are noted, a manual differential will be performed. Anya Gran Abs 0.01 0.00 - 0.04 x10(3)/[facility] Blood 04/12/2021 3:35 AM EDT 04/12/2021 3:41 AM EDT Narrative Resulting Agency Comment Spec In Lab Jacobo Guajardo MD HEMATOLOGY ORDERABLE S [facility] [place] [address] * (ABNORMAL) Hemogram (04/12/2021 3:35 AM EDT) WBC 8.7 4.0 - 9.5 x10(3)/[facility] LABORATORY RBC 3.26(L) 4.00 - 5.21 x10(6)/[facility] LABORATORY Hemoglobin 9.9(L) 11.7 - 15.5 gm/dL [facility] Hematocrit 31.6(L) 35.7 - 45.8 % [facility] MCV 96.9(H) 82.6 - 94.4 fL [facility] MCH 30.4 27.1 - 32.0 pg [facility] MCHC 31.3(L) 31.7 - 35.0 gm/dL [facility] Platelets 254 145 - 357 x10(3)/[facility] LABORATORY RDWSD 51.9(H) 37.0 - 46.0 fL [facility] RDWCV 14.6(H) 11.5 - 14.1 % [facility] MPV 9.9 7.6 - 12.9 [facility] nRBC % Auto 0.0 % [facility] nRBC Abs Auto 0.000 0.000 - 0.000 x10(3)/[facility] LABOR[facility] Blood 04/12/2021 3:35 AM EDT 04/12/2021 3:41 AM EDT Narrative Resulting Agency Comment Spec In Lab Jacobo Guajardo MD HEMATOLOGY ORDERABLE S [facility] [place] [address] * (ABNORMAL) BMP w/fasting Glucose (04/12/2021 3:35 AM EDT) Glucose Fasting 111(H) 65 - 99 mg/dL [facility] Comment: ?Fasting* Glucose Interpretive Criteria Normal [...] of Diabetes Mellitus, Position Statement from the [place] [employer]. ??Diabetes Care, Volume 33, Supplement 1, Oct 2009 BUN 35(H) 8 - 18 mg/dL [facility] Creatinine 0.95 0.70 - 1.20 mg/dL [facility] Sodium 141 135 - 145 mmol/L [facility] Comment:result rechecked-emmanuel Potassium 3.8 3.5 - 5.0 mmol/L [facility] Comment: result rechecked-emmanuel Please note: ??Patients with WBC >100,000 may have falsely elevated Potassium levels. ??For accurate Potassium quantification in these patients send serum separator tube (gold top) for subsequent determinations. ??Contact the Clinical Chemistry Laboratory if there are any questions. Chloride 108(H) 98 - 107 mmol/L [facility] Comment:result rechecked-emmanuel CO2 21(L) 22 - 31 mmol/L [facility] Anion Gap 12 5 - 15 mmol/L [facility] Calcium 8.9 8.5 - 10.5 mg/dL [facility] Comment:result rechecked-emmanuel Estimated GFR 62 >=60 mL/min/1. 73 m?? [facility] Comment: This patient? s estimated glomerular filtration rate (eGFR) is between 62 mL/min/1.73 m2 (patients with less muscle mass) and 72 mL/min/1.73 m2 (patients with more muscle mass) [...] and symptoms in addition to eGFR. Blood 04/12/2021 3:35 AM EDT 04/12/2021 3:40 AM EDT Narrative Resulting Agency Comment Spec In Lab Antonio Cruz MD CHEMISTRY ORDERABLES Performing Organization Address [facility] Co de Phone Number [facility] [place] [address] * EKG 12 Lead (04/11/2021 3:51 PM EDT) Ventricular rate 67 BPM MUSE SYSTEM Atrial Rate 67 BPM MUSE SYSTEM P-R Interval 238 ms MUSE SYSTEM QRS Duration 84 ms MUSE SYSTEM Q-T Interval 422 ms MUSE SYSTEM QTC Calculated (Bezet) 445 ms MUSE SYSTEM Calculated P [place]field 22 degrees MUSE SYSTEM Calculated R [place] 11 degrees MUSE SYSTEM Calculated T [place]field 89 degrees MUSE SYSTEM INTERPRETATION Sinus rhythm with 1st degree A-V block Otherwise normal ECG When compared with ECG of 11-APR-2021 10:52, No significant change was found Confirmed by MD Albert, Immanuel ([id number]) on 04/14/2021 9:25:39 AM MUSE SYSTEM 04/11/2021 3:51 PM EDT 04/14/2021 9:25 AM EDT Antonio Navdeep Cruz MD ECG ORDERABLES Performing Organization Address [facility]/ZIP Co de Phone Number MUSE SYSTEM * CARDIAC CATHETERIZATION (04/11/2021 3:50 PM EDT) Anatomical Region Laterality Modality Other Narrative 04/11/2021 5:34 PM EDT ?[facility] ? Cardiac Catheterization/Intervention Report ? Patient Name: [place], Toyin I. ? Procedure Date: 04/11/2021 ? A #: [id number] ? Primary Physician: Antonio Cruz ? Case #: [id number] ? File Name: [id number] ? Catheterization Order Number: [id number] ? [facility] ? Final Report [place], [place] ? Patient Name: ? Toyin I. Coley ? ID#: ?[id number] ? : ?1955 ? Procedure Date: ? April 11, 2021 ? Case #: ? [id number] ? Room: ? 6 ? Case Physician: ? Antonio Cruz M.D. ?Start: ?14:43 ?Fellow: ? Jacobo Guajardo M.D. ?Admission: ??04/11/2021 ? Discharge: ??04/12/2021 ? Procedures: ?* Coronary Angiography ?* Coronary Ultrasound ?* Coronary Stent Insertion ? History ?Toyin Coley is a 65 year old woman. She has hypertension. The ?patient's smoking status is Never. She has hypercholesterolemia managed ?with lipid therapy. The patient has untreated diabetes. She is status ?post a remote myocardial infarction. The patient has a history of CHF. ?The CHF is NYHA Functional Class III, is newly diagnosed and is ?classified as Systolic. Prior to the initiation of this procedure, the ?patient was designated as ASA Class II. The [facility] clinical frailty scale ?is 5: Mildly Frail. ? Diagnostic Tests: ?Prior Coronary Angiography: ? LV ejection fraction within 6 months is 40%. ?Electrocardiography: ? EKG was assessed by ECG. EKG was Abnormal. EKG showed other ? abnormality. ?Medications Prior to Procedure: ? Aspirin, Beta Татьяна and Statin. ? Indications for Diagnostic Cath: ?The priority of the diagnostic procedure was Elective. The indication for ?the cathode washer visit is worsening angina, stable known CAD and ?cardiomyopathy. Chest pain symptom assessment was: Typical Angina. ? Technique: ?A 6 SLFr sheath was inserted in the right radial artery utilizing the ?Seldinger technique. The left coronary artery was injected utilizing a ?6Fr IL 4.0 catheter. Aortic Root was performed with a 6Fr IL 4.0 ?catheter. Coronary stent insertion was performed and the equipment ?utilized will be described in the intervention summary section. 10,000 ?units of heparin were administered. A total of 100cc of Omnipaque were ?opened, 63cc of Omnipaque were administered and 37cc of Omnipaque were ?wasted. Radiation: Fluoro time was 18.2 minutes, dose area product was ?44,600 mGYcm2 and air kerma was 551 mGY. See the case log for additional ?details. ?The patient received the following medications prior to and during the ?procedure: ? Unfractionated Heparin and Clopidogrel. ? Hemodynamics: ?Left Heart Pressures ? Resting: ? Syst Diast ? EDP ?a ?v ? m ?Ao 123 ?? 59 ?84 ? Coronary Angiography: ?Dominance: Right ?Left Main ? There was mild diffuse (<=25% stenosis) disease of the entire vessel ? segment of the left main artery. ?Left Anterior Descending ? There were multiple discrete 90% calcified stenoses of the mid ? segment of the left anterior descending artery (LAD). ??The LAD was ? large. ? There was mild diffuse (<=25% stenosis) disease of the entire vessel ? segment of the first diagonal branch (Diagonal 1) of the LAD. ??The ? Diagonal 1 was large. ?Left Circumflex ? There was a 70% long segmental stenosis of the proximal segment of ? the left circumflex artery (LCX). ??The LCX was large. ? There was mild diffuse (<=25% stenosis) disease of the entire vessel ? segment of the first obtuse marginal branch (OM1) of the LCX. ?Right Coronary Artery ? This vessel was not injected. ? Intravascular Imaging/Physiology: ?Intravascular Ultrasound was performed in the mid LAD using a 6 Fr Ikari ?Left 4.0 guiding catheter and a 3.5 Fr [facility] [place] [address] ??20 Mhz ?using Manual pullback. ??Imaging was unsuccessful. ??IVUS was unsuccessful ?due to unable to pass catheter. ? Indication for Intervention: ?Coronary intervention was indicated for treatment of stable angina. The ?priority for the procedure was Elective. The NCDR indication for the ?procedure was Stable angina. LVEF within one week was 40%. Syntax Score ?was High. ? Intervention Summary: ?Left Anterior Descending Artery ? Mid 90% ? Stent insertion was performed on the 90% multiple discrete ? stenosis in the mid segment of the LAD. This was a de becca ? lesion. According to the ACC/AHA classification system, this ? lesion was a type C high risk lesion. Primary prevention of ? restenosis was the indication for stent insertion. A guidewire ? was placed across this lesion. Vessel flow pre intervention ? was MOIZ 2. Lesion length was 24mm. ? Stent insertion was accomplished through a 6 Fr. Ikari Left ? 4.0 guide. ??The lesion was predilated with a 1.50mm TAKERU 15 ? MM balloon with a maximum inflation pressure of 22 ? atmospheres. ??A premounted 2.50 x 24 mm Synergy XD (ASIM) was ? deployed with a maximum inflation pressure of 20 atmospheres. ? The final outcome was defined as successful. A coronary ? arteriolar vasodilator was administered as part of the ? intervention on this lesion. There was no residual stenosis ? following this intervention. The final MOIZ flow was 3. ? Lesion #1: PCI of the mid LAD 95% tandem lesions. ? A successful PCI was performed on the 95% heavily calcified ? tandem lesions in the mid LAD. We used a 6 Fr IKARI Left 4.0 ? guide. We administered heparin and loaded PLavuix. We used a 6 ? Fr Telescope for additional supprt in these calcified lesions. ? We wired the LAD with a short Runthrough wire, the wire could ? not be advanced distally enough as it was being gripped by the ? calcified lesions and wire bias due to angulation. We ? attempted to deliver a 2.5 x 12 mm NC balloon, but it would ? not cross the calcified lesions. We next went in with a 1.5 x ? 15 mm Takeru balloon and crossed the lesion with significant ? difficulty, and dilated the lesions to 24 bernie pressure x 6. ? With some difficulty we were next able to push a 2.5 x 12 mm ? NC balloon in the mid LAD and dilated the lesions to 24 bernie x ? 4 to crack the calcium. We then introduced the Telescope deep ? and with its support delivered a 2.5 x 24 mm SYNERGY XD ASIM ? stent, and deployed it covering both lesions at 18 bernie. We ? attempted IVUS but it would not cross the second angulated ? bend in the vessel. IVUS of the proximal stent segment showed ? it was well apposed and no dissections. Following intervention ? there was excellent angiographic appearance and 0% residual ? stenosis. There were no site complications. ? Vascular Access: ?Vascular Access Management: ? Mechanical Compression of the right radial artery access site was ? performed. ? Dual Antiplatelet (DAPT) Recommendations: ?Drug eluting stent (ASIM) inserted for stable ischemic heart disease ?(SIHD). ?P2Y12 Loading dose administered prior to arrival in the cathode washer. ?Recommended anti-platelet/anti-thrombotic regimen: ?Start aspirin 81 mg daily now and continue for indefinitely. ?Start clopidogrel 75 mg daily now and continue for 12 months then stop. ?These recommendations are made at the time of the intervention. Patient ?and provider preferences or a changing clinical situation may require ?modification of this regimen. Consult [facility] Interventional Cardiology for ?questions. ?This patient has a high DAPT score and may benefit from prolonged (12-30 ?months) dual antiplatelet therapy if the patient has completed 12 months ?of DAPT without having a major bleeding or ischemic event and the patient ?is NOT on chronic anticoagulation. This should be used for guidance in ?the overall conversation about prolonged dual antiplatelet therapy and ?not as a recommendation for or against any medical treatment. Consult ?http://tools.acc.org/DAPTriskapp/#!/content/calculator/ or [facility] ?Interventional Cardiology for questions ? Conclusions: ?* Obstructive disease of the LAD and LCX ?* Nonobstructive disease of the LM ?* Successful stent insertion of the mid LAD lesion ?* See Dual Antiplatelet (DAPT) Recommendations above ? Complications/Events: ?The patient had no complications during these procedures. ? Comments: ?SUMMARY AND THERAPEUTIC RECOMMENDATIONS: ?Toyin I Coley presents with significant angina and was not an optimal ?surgical candidate. We perfromed a PCI of the angulated and heavily ?calcified mid LAD using a 2.5 x 24 mm SYNERGY XD ASIM stent. She has LCX ?and RCA disease, which for now we will continue to medically manage. We ?will send her to cardiac rehab and re-evaluate her ischemic symptoms in ?clinic in 1-2 months to see how she is tolerating the rehab, to decide ?further interventions. Please continue Aspirin 81 mg daily, Plavix and ?high intensity statin. ?I was present during the entire procedure and personally dictated or ?confirmed the above report. ?I advised cardiac rehab. ?The attending physician was present for the entire procedure. ?Dr. Antonio Cruz M.D. was present during the moderate sedation intraservice ?time as documented by the sedation nurse. ??Case time = 01:02. ?Dr. Antonio Cruz M.D. performed the coronary angiography, stent ?insertion-coronary and IVUS # coronary. ? Antonio Cruz M.D. ? Electronically Signed by: Antonio Cruz M.D. ? Report Finalized: 04/11/2021 ??17:27 ? Report Last Ammended: 06/12/2021 ??16:15 ? Procedure Note Antonio Cruz MD - 06/12/2021 [facility] Cardiac Catheterization/Intervention Report Patient Name: Toyin Coley I. Procedure Date: 04/11/2021 A #: [id number] Primary Physician: Antonio Cruz Case #: [id number] File Name: [id number] Catheterization Order Number: [id number] [facility] FinalReport [place], [place] Patient Name: Toyin Coley ID#:[id number] :1955 Procedure Date: April 11, 2021 Case #: Room: 6 Case Physician: Antonio Cruz M.D. Start: 14:43 Fellow: Jacobo Guajardo M.D. Admission:04/11/2021 Discharge:04/12/2021 Procedures: * Coronary Angiography * Coronary Ultrasound * Coronary Stent Insertion History Toyin Coley is a 65 year old woman. She has hypertension. The patient's smoking status is Never. She has hypercholesterolemiamanaged with lipid therapy. The patient has untreated diabetes. She isstatus post a remote myocardial infarction. The patient has a history ofCHF. The CHF is NYHA Functional Class III, is newly diagnosed and is classified as Systolic. Prior to the initiation of this procedure,the patient was designated as ASA Class II. The [facility] clinical frailtyscale is 5: Mildly Frail. Diagnostic Tests: Prior Coronary Angiography: LV ejection fraction within 6 months is 40%. Electrocardiography: EKG was assessed by ECG. EKG was Abnormal. EKG showed other abnormality. Medications Prior to Procedure: Aspirin, Beta Татьяна and Statin. Indications for Diagnostic Cath: The priority of the diagnostic procedure was Elective. Theindication for the cathode washer visit is worsening angina, stable known CAD and cardiomyopathy. Chest pain symptom assessment was: Typical Angina. Technique: A 6 SLFr sheath was inserted in the right radial artery utilizingthe Seldinger technique. The left coronary artery was injected utilizinga 6Fr IL 4.0 catheter. Aortic Root was performed with a 6Fr IL 4.0 catheter. Coronary stent insertion was performed and the equipment utilized will be described in the intervention summary section.10,000 units of heparin were administered. A total of 100cc of Omnipaquewere opened, 63cc of Omnipaque were administered and 37cc of Omnipaquewere wasted. Radiation: Fluoro time was 18.2 minutes, dose area productwas 44,600 mGYcm2 and air kerma was 551 mGY. See the case log foradditional details. The patient received the following medications prior to and duringthe procedure: Unfractionated Heparin and Clopidogrel. Hemodynamics: Left Heart Pressures Resting: Syst Diast EDP a v m Ao 123 59 84 Coronary Angiography: Dominance: Right Left Main There was mild diffuse (<=25% stenosis) disease of the entirevessel segment of the left main artery. Left Anterior Descending There were multiple discrete 90% calcified stenoses of the mid segment of the left anterior descending artery (LAD). The LADwas large. There was mild diffuse (<=25% stenosis) disease of the entirevessel segment of the first diagonal branch (Diagonal 1) of the LAD.The Diagonal 1 was large. Left Circumflex There was a 70% long segmental stenosis of the proximal segmentof the left circumflex artery (LCX). The LCX was large. There was mild diffuse (<=25% stenosis) disease of the entirevessel segment of the first obtuse marginal branch (OM1) of the LCX. Right Coronary Artery This vessel was not injected. Intravascular Imaging/Physiology: Intravascular Ultrasound was performed in the mid LAD using a 6 FrIkari Left 4.0 guiding catheter and a 3.5 Fr [facility] [place] [facility] 20 Mhz using Manual pullback. Imaging was unsuccessful. IVUS wasunsuccessful due to unable to pass catheter. Indication for Intervention: Coronary intervention was indicated for treatment of stable angina.The priority for the procedure was Elective. The NCDR indication for the procedure was Stable angina. LVEF within one week was 40%. SyntaxScore was High. Intervention Summary: Left Anterior Descending Artery Mid 90% Stent insertion was performed on the 90% multiplediscrete stenosis in the mid segment of the LAD. This was a denovo lesion. According to the ACC/AHA classification system,this lesion was a type C high risk lesion. Primary preventionof restenosis was the indication for stent insertion. Aguidewire was placed across this lesion. Vessel flow preintervention was MOIZ 2. Lesion length was 24mm. Stent insertion was accomplished through a 6 Fr. IkariLeft 4.0 guide. The lesion was predilated with a 1.50mmTAKERU 15 MM balloon with a maximum inflation pressure of 22 atmospheres. A premounted 2.50 x 24 mm Synergy XD (ASIM)was deployed with a maximum inflation pressure of 20atmospheres. The final outcome was defined as successful. A coronary arteriolar vasodilator was administered as part of the intervention on this lesion. There was no residualstenosis following this intervention. The final MOIZ flow was 3. Lesion #1: PCI of the mid LAD 95% tandem lesions. A successful PCI was performed on the 95% heavilycalcified tandem lesions in the mid LAD. We used a 6 Fr IKARI Left4.0 guide. We administered heparin and loaded PLavuix. Weused a 6 Fr Telescope for additional supprt in these calcifiedlesions. We wired the LAD with a short Runthrough wire, the wirecould not be advanced distally enough as it was being grippedby the calcified lesions and wire bias due to angulation. We attempted to deliver a 2.5 x 12 mm NC balloon, but itwould not cross the calcified lesions. We next went in with a1.5 x 15 mm Takeru balloon and crossed the lesion withsignificant difficulty, and dilated the lesions to 24 bernie pressure x6. With some difficulty we were next able to push a 2.5 x 12mm NC balloon in the mid LAD and dilated the lesions to 24atm x 4 to crack the calcium. We then introduced the Telescopedeep and with its support delivered a 2.5 x 24 mm SYNERGY XDDES stent, and deployed it covering both lesions at 18 bernie.We attempted IVUS but it would not cross the secondangulated bend in the vessel. IVUS of the proximal stent segmentshowed it was well apposed and no dissections. Followingintervention there was excellent angiographic appearance and 0%residual stenosis. There were no site complications. Vascular Access: Vascular Access Management: Mechanical Compression of the right radial artery access sitewas performed. Dual Antiplatelet (DAPT) Recommendations: Drug eluting stent (ASIM) inserted for stable ischemic heart disease (SIHD). P2Y12 Loading dose administered prior to arrival in the cathode washer. Recommended anti-platelet/anti-thrombotic regimen: Start aspirin 81 mg daily now and continue for indefinitely. Start clopidogrel 75 mg daily now and continue for 12 months thenstop. These recommendations are made at the time of the intervention.Patient and provider preferences or a changing clinical situation mayrequire modification of this regimen. Consult [facility] [place]iology[place] questions. This patient has a high DAPT score and may benefit from prolonged(12-30 months) dual antiplatelet therapy if the patient has completed 12months of DAPT without having a major bleeding or ischemic event and thepatient is NOT on chronic anticoagulation. This should be used for guidancein the overall conversation about prolonged dual antiplatelet therapyand not as a recommendation for or against any medical treatment.Consult http://tools.acc.org/DAPTriskapp/#!/content/calculator/ or [facility] for questions Conclusions: * Obstructive disease of the LAD and LCX * Nonobstructive disease of the LM * Successful stent insertion of the mid LAD lesion * See Dual Antiplatelet (DAPT) Recommendations above Complications/Events: The patient had no complications during these procedures. Comments: SUMMARY AND THERAPEUTIC RECOMMENDATIONS: Toyin Coley presents with significant angina and was not anoptimal surgical candidate. We perfromed a PCI of the angulated and heavily calcified mid LAD using a 2.5 x 24 mm SYNERGY XD ASIM stent. She hasLCX and RCA disease, which for now we will continue to medically manage.We will send her to cardiac rehab and re-evaluate her ischemic symptomsin clinic in 1-2 months to see how she is tolerating the rehab, todecide further interventions. Please continue Aspirin 81 mg daily, Plavixand high intensity statin. I was present during the entire procedure and personally dictated or confirmed the above report. I advised cardiac rehab. The attending physician was present for the entire procedure. Dr. Antonio Cruz M.D. was present during the moderate sedationintraservice time as documented by the sedation nurse. Case time = 01:02. Dr. Antnoio Cruz M.D. performed the coronary angiography, stent insertion-coronary and IVUS # coronary. Antonio Cruz M.D. Electronically Signed by: Antonio Cruz M.D. Report Finalized: 04/11/2021 17:27 Report Last Ammended: 06/12/2021 16:15 Antonio Cruz MD CARDIAC CATH ORDERAB LES * EKG 12 Lead (04/11/2021 10:52 AM EDT) Ventricular rate 53 BPM MUSE SYSTEM Atrial Rate 53 BPM MUSE SYSTEM P-R Interval 222 ms MUSE SYSTEM QRS Duration 80 ms MUSE SYSTEM Q-T Interval 430 ms MUSE SYSTEM QTC Calculated (Bezet) 403 ms MUSE SYSTEM Calculated P [place] 12 degrees MUSE SYSTEM Calculated R [place] 7 degrees MUSE SYSTEM Calculated T [place] 110 degrees MUSE SYSTEM INTERPRETATION Sinus bradycardia with 1st degree A-V block Possible Inferior infarct , age undetermined Poor R-wave progression Abnormal ECG When compared with ECG of 20-MAR-2021 08:08, Nonspecific T wave abnormality now evident in Lateral leads QT has shortened Confirmed by Kingsley Gilmore MD ([id number]) on 04/11/2021 1:42:20 PM MUSE SYSTEM 04/11/2021 10:5 2 AM EDT 04/11/2021 1:42 PM EDT Antonio Navdeep Cruz MD ECG ORDERABLES MUSE SYSTEM * Differential, Automated (04/11/2021 10:09 AM EDT) Pathologist [facility] Neutrophils % 58.6 % [facility] Neutr Abs (ANC) 5.52 1.70 - 6.10 x10(3)/[facility] Lymphocytes % 33.0 % [facility] Lymphocytes Abs 3.1 0.9 - 3.2 x10(3)/[facility] Monocytes % 5.9 % [facility] Monocyte Abs 0.6 0.3 - 0.9 x10(3)/[facility] Eosinophils % 1.8 % [facility] Eosinophils Abs 0.2 0.0 - 0.4 x10(3)/[facility] Basophils % 0.5 % [facility] Basophils Abs 0.0 0.0 - 0.1 x10(3)/[facility] Immature Gran % 0.20 % [facility] Comment: Immature granulocytes(IG's)percentage and absolute count will include metamyelocytes, myelocytes, and promyelocytes. Blood smears from CBCs yielding IG's will be scanned manually for concordance. If this scan disagrees with the automated IG or if promyelocytes are noted, a manual differential will be performed. Anya Gran Abs 0.02 0.00 - 0.04 x10(3)/[facility] Blood 04/11/2021 10:0 9 AM EDT 04/11/2021 10:15 AM EDT Narrative Resulting Agency Comment Spec In Lab Antonio Cruz MD HEMATOLOGY ORDERABLE S [facility] [place] [address] * (ABNORMAL) Hemogram (04/11/2021 10:09 AM EDT) WBC 9.4 4.0 - 9.5 x10(3)/[facility] RBC 3.31(L) 4.00 - 5.21 x10(6)/[facility] Hemoglobin 10.0(L) 11.7 - 15.5 gm/dL [facility] Hematocrit 32.5(L) 35.7 - 45.8 % [facility] MCV 98.2(H) 82.6 - 94.4 [facility] MCH 30.2 27.1 - 32.0 pg [facility] MCHC 30.8(L) 31.7 - 35.0 gm/dL [facility] Platelets 252 145 - 357 x10(3)/[facility] RDWSD 53.1(H) 37.0 - 46.0 [facility] RDWCV 14.7(H) 11.5 - 14.1 % [facility] MPV 10.0 7.6 - 12.9 [facility] nRBC % Auto 0.0 % [facility] nRBC Abs Auto 0.000 0.000 - 0.000 x10(3)/[facility] Blood 04/11/2021 10:0 9 AM EDT 04/11/2021 10:15 AM EDT Narrative Resulting Agency Comment Spec In Lab Antonio Cruz MD HEMATOLOGY ORDERABLE S [facility] [place] [address] * (ABNORMAL) BMP w/fasting Glucose (04/11/2021 10:09 AM EDT) Glucose Fasting 139(H) 65 - 99 mg/dL [facility] Comment: ?Fasting* Glucose Interpretive Criteria Normal [...] of Diabetes Mellitus, Position Statement from the [place] [employer]. ??Diabetes Care, Volume 33, Supplement 1, Oct 2009 BUN 49(H) 8 - 18 mg/dL [facility] Creatinine 1.51(H) 0.70 - 1.20 mg/dL [facility] Sodium 139 135 - 145 mmol/L [facility] Potassium 5.1(H) 3.5 - 5.0 mmol/L [facility] Comment: Please note: ??Patients with WBC >100,000 may have falsely elevated Potassium levels. ??For accurate Potassium quantification in these patients send serum separator tube (gold top) for subsequent determinations. ??Contact the Clinical Chemistry Laboratory if there are any questions. Chloride 103 98 - 107 mmol/L [facility] CO2 25 22 - 31 mmol/L [facility] Anion Gap 11 5 - 15 mmol/L [facility] Calcium 9.8 8.5 - 10.5 mg/dL [facility] Estimated GFR 35(L) >=60 mL/min/1. 73 m?? [facility] Comment: This patient? s estimated glomerular filtration rate (eGFR) is between 35 mL/min/1.73 m2 (patients with less muscle mass) and 41 mL/min/1.73 m2 (patients with more muscle mass) [...] and symptoms in addition to eGFR. Blood 04/11/2021 10:0 9 AM EDT 04/11/2021 10:15 AM EDT Narrative Resulting Agency Comment Spec In Lab Antonio Cruz MD CHEMISTRY ORDERABLES Performing Organization Address City/State/[facility] Co de Phone Number [facility] [place] [address] documented in this encounter Visit Diagnoses Diagnosis ASCVD (arteriosclerotic cardiovascular disease) Unspecified cardiovascular disease CAD (coronary artery disease) Coronary atherosclerosis of unspecified type of vessel, [place] or graft ASCVD (arteriosclerotic cardiovascular disease) Unspecified cardiovascular disease Left lumbar radiculopathy Thoracic or lumbosacral neuritis or radiculitis, unspecified documented in this encounter Admitting Diagnoses Diagnosis CAD (coronary artery disease) Coronary atherosclerosis of unspecified type of vessel, [place] or graft documented in this encounter Administered Medications Inactive Administered Medications - up to 3 most recent administrations Medication Order MAR Action Action Date Dose Rate Site acetaminophen (Tylenol) tablet 650 mg 650 mg, Oral, EVERY 4 HOURS PRN, Starting on 04/12/21 at 0228, Until 04/12/21 at 1809, Pain, Maximum dose of acetaminophen is 4000 mg from all sources in 24 hours. When ordered for pain, acetaminophen should be given even when other ordered pain medications are indicated. , Routine Given 04/12/2021 7:37 AM EDT 650 mg Given 04/12/2021 3:27 AM EDT 650 mg aspirin EC tablet 81 mg 81 mg, Oral, DAILY, First dose on Wed04/12/21 at 0900, Until Discontinued, Recovery (Recovery-Hospital Unit), Routine Given 04/12/2021 9:06 AM EDT 81 mg atorvastatin (Lipitor) tablet 40 mg 40 mg, Oral, EVERY EVENING, First dose on Wed04/11/21 at 1700, Until Discontinued, Routine Given 04/11/2021 7:19 PM EDT 40 mg clopidogreL (Plavix) tablet 75 mg 75 mg, Oral, DAILY, First dose on Wed04/12/21 at 0900, Until Discontinued, Recovery (Recovery-Hospital Unit), Routine Given 04/12/2021 9:06 AM EDT 75 mg gabapentin (Neurontin) capsule 200 mg 200 mg, Oral, 2 TIMES DAILY, First dose on Wed04/11/21 at 2145, Until Discontinued, Routine Given 04/12/2021 9:08 AM EDT 200 mg Given 04/11/2021 10:06 PM EDT 200 mg lisinopriL (Prinivil;Zestril) tablet 2.5 mg 2.5 mg, Oral, DAILY, First dose on Wed04/11/21 at 1615, Until Discontinued, Routine Given 04/11/2021 7:25 PM E DT 2.5 mg melatonin tablet 6 mg 6 mg, Oral, NIGHTLY PRN, Starting on Wed04/11/21 at 2045, Until Wed04/12/21 at 1809, Sleep Aid, Routine Given 04/11/2021 10:06 PM EDT 6 mg metoprolol succinate XL (Toprol-XL) tablet 50 mg 50 mg, Oral, DAILY, First dose on Wed04/11/21 at 1615, Until Discontinued, DO NOT CRUSH OR OPEN, Routine Given 04/12/2021 9:06 AM EDT 50 mg Given 04/11/2021 7:19 PM EDT 50 mg pantoprazole EC (Protonix) tablet 40 mg 40 mg, Oral, DAILY, First dose on Wed04/11/21 at 1615, Until Discontinued, DO NOT CRUSH OR OPEN, Routine Given 04/12/2021 9:06 AM EDT 40 mg Given 04/11/2021 7:19 PM EDT 40 mg sodium chloride 0.9% infusion 125 mL/hr, Intravenous, CONTINUOUS, Starting on Wed04/11/21 at 1615, Until Wed04/11/21 at 1914, Recovery (Recovery-Hospital Unit) New Bag 04/11/2021 4:03 PM EDT 125 mL/hr 125 mL /hr documented in this encounter Active and Recently Administered Medications Times are shown in EDT. Scheduled Medication Order 04/10/2021 04/11/2021 04/12/2021 aspirin EC tablet 81 mg 81 mg, Oral, DAILY, First dose on 04/12/21 at 0900, Until Discontinued, Recovery (Recovery-Hospital Unit), Routine 905 (Given - Provid er: Antonio Cain RN) atorvastatin (Lipitor) tablet 40 mg 40 mg, Oral, EVERY EVENING, First dose on Wed04/11/21 at 1700, Until Discontinued, Routine 1918 (Given - Provider: Peyton Orr LPN) clopidogreL (Plavix) tablet 75 mg 75 mg, Oral, DAILY, First dose on Wed04/12/21 at 0900, Until Discontinued, Recovery (Recovery-Hospital Unit), Routine 905 (Given - Provid er: Antonio Cain RN) gabapentin (Neurontin) capsule 200 mg 200 mg, Oral, 2 TIMES DAILY, First dose on Wed04/11/21 at 2145, Until Discontinued, Routine 2205 (Given - Provider: Tonie Malhotra LPN) 0908 (Given - Provider: Antonio Cain RN) lisinopriL (Prinivil;Zestril) tablet 2.5 mg 2.5 mg, Oral, DAILY, First dose on Wed04/11/21 at 1615, Until Discontinued, Routine 1924 (Given - Provider: Peyton Orr LPN) 0900 (Not Given - Provider: Antonio Cain RN - Reason: Patient/family refused) metoprolol succinate XL (Toprol-XL) tablet 50 mg 50 mg, Oral, DAILY, First dose on Wed04/11/21 at 1615, Until Discontinued, DO NOT CRUSH OR OPEN, Routine 1918 (Given - Provider: Peyton Orr LPN) 09 (Given - Provider: Antonio Cain RN) pantoprazole EC (Protonix) tablet 40 mg 40 mg, Oral, DAILY, First dose on Wed04/11/21 at 1615, Until Discontinued, DO NOT CRUSH OR OPEN, Routine 1919 (Given - Provider: Peyton Orr LPN) 0906 (Given - Provider: Antonio Cain RN) Continuous Medication Order 04/10/2021 04/11/2021 04/12/2021 sodium chloride 0.9% infusion () 125 mL/hr, Intravenous, CONTINUOUS, Starting on Wed04/11/21 at 1615, Until Wed04/11/21 at 1914, Recovery (Recovery-Hospital Unit) 1603 (New Bag - Provider: Pili Carrillo, RN)1920 (Stopped - Provider: Peyton Orr LPN) PRN Medication Order 04/10/2021 04/11/2021 04/12/2021 acetaminophen (Tylenol) tablet 650 mg 650 mg, Oral, EVERY 4 HOURS PRN, Starting on 04/12/21 at 0228, Until 04/12/21 at 1809, Pain, Maximum dose of acetaminophen is 4000 mg from all sources in 24 hours. When ordered for pain, acetaminophen should be given even when other ordered pain medications are indicated. , Routine 0327 (Given - Provid er: Tonie Malhotra LPN)0737 (Given - Provider: Tonie Malhotra LPN) fentaNYL (pf) (50 mcg/mL) multi-dose injection (CANCELED) ONCE PRN, Starting on Wed04/11/21 at 1515, Until Wed04/11/21 at 1549, Cath (Intra-Procedure), Routine 1515 (Given - Provider: Heavenly Gerber RN) heparin (porcine) (1,000 units/mL) injection (CANCELED) ONCE PRN, Starting on Wed04/11/21 at 1512, Until Wed04/11/21 at 1549, Cath (Intra-Procedure), Routine 1500 (Given - Provider: Heavenly Gerber RN)1512 (Given - Provider: Heavenly Gerber RN)1534 (Given - Provider: Heavenly Gerber RN) iohexoL (Omnipaque) (350 mg/mL) injection solution (CANCELED) ONCE PRN, Starting on Wed04/11/21 at 1545, Until Wed04/11/21 at 1549, Cath (Intra-Procedure), Routine 1545 (Given - Provider: Jacobo Guajardo MD) melatonin tablet 6 mg 6 mg, Oral, NIGHTLY PRN, Starting on Wed04/11/21 at 2045, Until Wed04/12/21 at 1809, Sleep Aid, Routine 2206 (Given - Provider: Tonie Malhotra LPN) niCARdipine (Cardene) (100 mcg/mL) dilution (HOME BUILDER) (CANCELED) ONCE PRN, Starting on Wed04/11/21 at 1534, Until Wed04/11/21 at 1549, Intra-Operative (Intra-Procedure), Routine 1534 (Given - Provider: Jacobo Guajardo MD)1539 (Given - Provider: Jacobo Guajardo MD) nitroGLYcerin 100 mcg/mL intracoronary dilution (CANCELED) ONCE PRN, Starting on Wed04/11/21 at 1444, Until Wed04/11/21 at 1549, Cath (Intra-Procedure), Routine 1444 (Given - Provider: Jacobo Guajardo MD) sodium chloride 0.9% infusion (CANCELED) CONTINUOUS PRN, Starting on Wed04/11/21 at 1550, Until Wed04/11/21 at 1556, Cath (Intra-Procedure) 1550 (New Bag - Provider: Jacobo Guajardo MD) verapamiL (Isoptin) (2.5 mg/mL) injection (CANCELED) ONCE PRN, Starting on Wed04/11/21 at 1443, Until Wed04/11/21 at 1549, Administer over 2 Minutes, Cath (Intra-Procedure) 1443 (Given - Provider: Jacobo Guajardo MD) documented in this encounter Care Teams Improvement Auditor Relationship Specialty Start Date End Date Asia Gil DO [address] [facility] [place] [address] PCP - General Family Medicine 07/09/20 documented as of this encounter
--- OUTSIDE RECORDS SUMMARY | 2024-05-02 12:08 | XMS_ITS | Encounter Summary ---
[place] [address] Care Team Providers Care Legal Director Name Role Phone Asia Gil DO Primary Care Provider +1- [phone] Reason for Referral * Diagnostic Test (Routine) - Closed Specialty Diagnoses / Procedures Referred By Contac t Referred To Contact Radiology Diagnoses Chronic pancreatitis, unspecified pancreatitis type Pancreatic pseudocyst RUQ pain Pancreatic abscess Procedures IR Drain Check/Change/Remove Mauro Thomas [facility] [place] [place] [address] [place] [address] Referral ID Status Reason Start Date Expiration Date V isits Requested Visits Authorized [id number] Closed Specialty Service Requested 02/20/2021 08/23/2022 1 1 Reason for Visit * Diagnostic Test (Routine) - Closed Specialty Diagnoses / Procedures Referred By Contac t Referred To Contact Radiology Diagnoses Chronic pancreatitis, unspecified pancreatitis type Pancreatic pseudocyst RUQ pain Pancreatic abscess Procedures IR Drain Check/Change/Remove Mauro Thomas [facility] [address] [facility] [place] [address] Referral ID Status Reason Start Date Expiration Date V isits Requested Visits Authorized [id number] Closed Specialty Service Requested 02/20/2021 08/23/2022 1 1 Encounter Details Date Type Department Care Team (Latest Contact Info) Description 03/13/2021 6:46 AM EDT - 03/13/2021 10:35 AM EDT Hospital [place] [address] Mauro Thomas DO [facility] [place] [address] Chris Jamil MD [facility] [place] [address] Chronic pancreatitis, unspecified pancreatitis type; Pancreatic pseudocyst; RUQ pain; Pancreatic abscess; Pancreatic fluid collection with possible abscess Discharge Disposition: Home Social History Tobacco Use [...] Sign Reading Time Taken Comments Blood Pressure 134/48 03/13/2021 7:13 AM EDT Pulse 79 03/13/2021 7:13 AM EDT Temperature 35.8 ??C (96.5 ??F) 03/13/2021 7:13 AM ED T Respiratory Rate 22 03/13/2021 7:13 AM EDT Oxygen Saturation 97% 03/13/2021 7:13 AM EDT Inhaled Oxygen Concentration - - Weight - - Height - - Body Mass Index - - documented in this encounter Discharge Instructions * Discharge Instructions* Blanca Benson RN - 03/13/2021 8:11 AM EDT Images from the original note were not included. INTERVENTIONAL RADIOLOGY DRAIN CARE INSTRUCTIONS Drains help to keep fluid from collecting by removing the extra blood and fluid from under the skinor from an abscess within the body. A drain is temporary. It stays in place until the drainage has slowed down or stopped. Your Provider will decide when each drain should be removed. This is usuallyafter each drain has 30cc or less in 24 hours for 2-3 days in a row. You will then be scheduled for what is called a Sinogram to check and see if the fluid collection has gotten smaller. How do I care for the drains at home? Pin your drain/s to your clothing by using a safety pin through the plastic loop on the top of the bulb. If the drain is not attached to your clothing, it may pull out from under your skin. Also, a drain usually feels more comfortable when it???s attached. To care for the drain at home, you will have to empty the drain, ???strip?? the drain tubing, and change the dressing if applicable. * See the following information on instructions on how to do this. You will go home with a dressing over the insertion site. Usually, Visiting Nurses are set up to show you how to change the dressing and care for the drain. They may teach a family member if they arewilling. The dressing needs to only be change once a week provided there is no leakage around the tube. What problems may I have with my drain? The bulb is not compressed- The bulb may not be squeezed tightly enough, the plug may not be closed securely, or the tube has slipped out a bit and is leaking. Follow the instructions on how to empty the drain. If the bulb remains expanded, then notify your doctor or nurse during business hours. ??? No drainage or sudden decrease in amount of drainage- This may be due to a plug in the drain. Please notify your doctor or nurse during business hours. ??? The tube accidentally falls out- If this happens, place a dry gauze dressing over the drain site and notify your doctor or nurse during business hours. ??? Increased redness, swelling, or heat around the tube insertion site- This may be a sign of infection. Take your temperature: if it is higher than 101F or 38.8C, call your doctor or nurse immediately. Otherwise, notify your doctor or nurse during business hours and keep the dressing clean and dry. How to Empty Your Drain and flush drain Note: Wash your hands thoroughly before emptying your drain(s). Unpin the drain from your clothing. 1. Turn the white stopcock so it is not parallel (in line) with the tubing. 2. Unscrew the tubing with the bulb attached from stopcock. Make sure you keep everything clean. 3. Attach the syringe with sterile saline to the stopcock. 4. Inject saline per MD order, 5 cc's. Forward flush only, do not aspirate back. 5. Re-attach the tubing with the bulb to the stopcock. 6. Invert the bulb and pull open the plug. 7. Have the plastic measuring cup from the hospital ready to collect and measure the drainage. Please measure the output at the same time every 24 hours and record the amount. 8. Turn the drain upside down and squeeze the contents of the bulb into the measuring cup. Be sure to empty the bulb as completely as possible. Flush the contents in the toilet. 9. Use the drain output log chart to record the amount of drainage twice a day or any time the bulbis full. Record the total for 24 hours for each drain you have. 10. If you have more than one drain, remember to record the drainage from each drain separately. 11. To prevent infection, do not let the stopper or top of the bottle touch the measuring cup or any other surface. 1. 2. Use one hand to squeeze all of the air from the drain. With the drain still squeezed, use your other hand to replace the top. This creates the suction necessary to remove the fluids from your body. 3. Pin the drain back on your clothing to avoid pulling it out accidently. 4. Wash your hands again. Remember to wash your hands before and after the procedure to reduce the risk of infection. Flushing the Drain: Your doctor may want the drain to be flushed once daily to keep the fluid from plugging the drain. Flush the drain with 5 cc daily with the syringes supplied to you. FORWARD FLUSH ONLY, DO NOT ASPIRATE BACK. When to call the Interventional Radiology Department: Please call with any questions or concerns. If it is during regular office hours, please call [phone]. If it is after regular office hours, or on weekends or holidays, please call [phone] and ask to speak to the Airport Utility Worker business analysis consultant for Interventional Radiology. Revised 07/27/19 Drainage Record NAME: Date of Surgery: Date: Time: If more than one drain, which one: Drainage Amount (per drain) Total Amount (per drain; in 24 hours) documented in this encounter Medications at Time of Discharge Medication Sig Dispensed Refills Start Date End Date nitroGLYcerin (Nitrostat) 0.4 mg Tablet, Sublingual Take 0.4 mg by mouth as needed. 07/08/2020 ondansetron (Zofran) 4 mg Tablet Take 4 mg by mouth as needed. 02/27/2021 aspirin 81 mg Tablet, Chewable Take 81 [...] by mouth daily. 90 tablet 3 01/27/2021 torsemide (Demadex) 20 mg Tablet Take 1 [...] as of this encounter Progress Notes * Blanca Benson, RN - 03/13/2021 7:56 AM EDT ANGIO NURSING DATABASE Name: TOYIN LION Date of : 1955 AGE: 65 y.o. [address]: [address] [place] [phone] (home) Mobile: Telephone Information: Referring Provider: Mauro Thomas REASON FOR VISIT: Order Questions Answers Where will study be performed? [facility] Radiology [120] Reason for exam and clinical history: Pancreatic / Sloane-Pancreatic Abscess. Retroperitoneal drianage catheter placed 02/20. Plan for possible surgical intervention; this is why a retroperitoneal approach was selected,drainage catheter followup in case no surgical intervention. Is the patient on anticoagulant / anitplatelet therapy ? No Allergies Allergen Reactions ??? Benzodiazepines Other (See Comments) Paradoxical reaction to benzodiazepines ??? House Dust ??? Hydrocodone-Acetaminophen Itching ??? Metoclopramide ??? Mold Extracts ??? Pollen Extracts ??? Propoxyphene Hcl Nausea And Vomiting ??? Unknown [Unclassified Drug] Most environmental allergies: grass, workman, trees,pollen Pertinent PMH: Patient Active Problem List Diagnosis Code ??? [...] fluid collection with possible abscess K85.90 ??? Xynwi-dz-bplhhkm kidney injury N17.9, N18.9 ??? Anemia of chronic disease D63.8 ??? Acute blood loss anemia D62 Date/Procedure Meds Given/Comments 02/19/21 CT Pelvic drain placement Fentanyl 75 mcg IV, Tolerated well 03/13/21 Drain Check Lido gel 2% ? Laboratory Results: Lab Results Component Value Date INR 1.3 02/19/2021 Lab Results Component Value Date CREATININE 1.28 (H) 02/21/2021 Lab Results Component Value Date K 4.1 02/21/2021 Lab Results Component Value Date PLATELET 328 02/21/2021 documented in this encounter H&P Notes * Andrea Munson DO - 03/09/2021 2:23 PM EDT INTERVENTIONAL RADIOLOGY FOCUSED H&P and PRE-PROCEDURE NOTE: PCP: Asia Gil DO Referring Provider: Mauro Thomas Planned Procedure: Planned procedure: Drain check #1 Procedure Indication: Sloane-pancreatic fluid collection Procedure request received through Interventional Radiology eDH order queue. Order Questions Answers Where will study be performed? [facility] Radiology [120] Reason for exam and clinical history: Pancreatic / Sloane-Pancreatic Abscess. Retroperitoneal drianage catheter placed 02/20. Plan for possible surgical intervention; this is why a retroperitoneal approach was selected,drainage catheter followup in case no surgical intervention. Is the patient on anticoagulant / anitplatelet therapy ? No Presenting Diagnosis/ Complaint: Toyin Lion is a 65 y.o. female with SIMMONS cirrhosis (biopsy confirmed 2007), prior??cholecystectomy, HTN, HLD, DMII complicated by??diabetic neuropathy, GERD, prior TIA, &??CKD??III, and prior admissions for post-ERCP pancreatitis and diastolic heart failure. Underwent CT- guided drain placement into sloane-pancreatic fluid collection??in the setting of pancreatitis on 02/20. ??The case was reviewed by the Surgical and Gastrointestinal Services and prior to drainage catheter placement into the collection. The drain was placed via a retroperitoneal approachfor planned future surgical intervention. Past Medical/Surgical History: Patient Active Problem List Diagnosis Code ??? [...] fluid collection with possible abscess K85.90 ??? Vagdh-rp-xxpzmbz kidney injury N17.9, N18.9 ??? Anemia of chronic disease D63.8 ??? Acute blood loss anemia D62 Past Medical History: Diagnosis Date ??? CKD [...] Guided Drain Pancreatic/Peripancreatic 02/20/2021 Mauro Thomas, DO [facility] RAD CAT SCAN ??? PRO ERCP,DIAGNOSTIC N/A 01/17/2021 ERCP performed by Eliel Leigh MD at [facility] ENDOSCOPY Medications: Current Outpatient Medications on File Prior to Encounter Medication Sig Dispense Refill ??? [] amoxicillin-clavulanate (Augmentin) 875-125 mg Tablet Take 1 tablet by mouth 2 times daily for 7 days. 14 tablet 0 ??? torsemide (Demadex) 20 mg Tablet Take 1 tablet by mouth daily. (Patient not taking: Reported on03/03/2021) 30 tablet 1 ??? metroNIDAZOLE (Flagyl) 500 mg Tablet Take 1 tablet by mouth 3 times daily. (Patient not taking:Reported on 03/03/2021) 14 tablet 0 ??? aspirin 81 mg Tablet, Chewable Take [...] current facility-administered medications on file prior to encounter. Allergies: Benzodiazepines, House dust, Hydrocodone-acetaminophen, Metoclopramide, Mold extracts, Pollen extracts, Propoxyphene hcl, and Unknown [unclassified drug] Social History and Habits: Social History Socioeconomic History ??? Marital status: [...] Week: ??? Minutes of Exercise per Session: Significant Family History: History reviewed. No pertinent family history. Pertinent ROS: as per HPI Labs: Lab Results Component Value Date WBC 15.6 (H) 02/21/2021 HCT 22.0 (L) 02/21/2021 PLATELET 328 02/21/2021 INR 1.3 02/19/2021 BUN 30 (H) 02/21/2021 CREATININE 1.28 (H) 02/21/2021 ALKPHOS 310 (H) 02/19/2021 AST 28 02/19/2021 ALBUMIN 2.9 (L) 02/19/2021 BILIDIR 0.2 02/19/2021 BILITOT 0.4 02/19/2021 ALT 23 02/19/2021 PROT 8.0 02/19/2021 K 4.1 02/21/2021 Imaging: See PACS Physical Exam: Pending (to be performed in angio the day of procedure) ASA: Pending (to be assessed in angio the day of procedure) Mallampati Class: Pending (to be assessed in angio the day of procedure) Assessment: 65 y.o. female underwent CT-guided drain placement into sloane- pancreatic fluid collection??in the setting of pancreatitis on 02/20. Plan: Plan Planned procedure: Drain check #1 Labs to be performed day of procedure: No labs Sedation: No Sedation Prophylactic antibiotic : None Contrast: Omnipaque Additional medications for procedure: Lido jelly Planned access site: Drain Position: Prone Consent: Scanned Medications to discontinue (and days held): None Cytopathology presence needed: No Case Urgency:: G- Other (non E or F elective cases) 03/09/2021 documented in this encounter Procedure Notes * Chris Jamil MD - 03/13/2021 8:15 AM EDT Images from the original note were not included. IR PROCEDURE NOTE Procedure: Retroperitoneal drain injection. Indication for Procedure: Per Dr. Munson, Toyin Lion is a 65 y.o. female with SIMMONS cirrhosis (biopsy confirmed 2007), prior??cholecystectomy, HTN, HLD, DMII complicated by??diabetic neuropathy, GERD, prior TIA, &??CKD??III, and prior admissions for post-ERCP pancreatitis and diastolic heart failure. Underwent CT-guided drain placement into sloane-pancreatic fluid collection??in the setting of pancreatitis on 02/20. ??The case was reviewed by the Surgical and Gastrointestinal Services and prior to drainage catheter placement intothe collection. The drain was placed via a retroperitoneal approach for planned future surgical intervention. Ms. Lion reports she has, until recently, had 30 to 40 cc/day drain output, In the past 2 days outputs dropped to 10 to 20 cc. Procedure events and findings: Patient was positioned prone on procedure table and sterile prep anddrape performed. Maximum sterile barrier technique was used throughout. Contrast injection via the drainage catheter showed a stellate residual cavity. There was no communication seen to bowel or pancreatic duct. The residual cavity was however larger than felt to be appropriate for drain removal so drain left in place. Due for CT later today. Will plan for additional f/u and if CT unimpressive and drain output remains low would be more optimistic about drain removal. Medications: 2% lidocaine gel, topical. Est Blood Loss: <5cc. Complications: No immediate. Impression: 1. Stellate residual space larger than felt to be appropriate for drain removal. 2. No connection seen to bowel or pancreatic duct. 3. Will plan for f/u drain study. Resident/Fellow: None. Attending: Dr. Omero Nelson performed this procedure. Prone documented in this encounter Plan of Treatment Upcoming Encounters Date Type Department Care Team (Latest Contact Info) Description 05/08/2024 10:30 AM EDT Hospital Encounter Pain Management [place] [phone] Bk Contreras MD [facility] [place] [address] 05/08/2024 10:30 AM EDT - 05/08/2024 11:00 AM EDT [place] [phone] Bk Contreras MD [facility] [place] [address] INJECTION, ANESTHETIC AGENT AND/OR STEROID, TRANSFORAMINAL EPIDURAL, LUMBAR OR SACRAL, SINGLE LEVEL (WRVU 1.9) 05/12/2024 1:00 PM EDT Office Visit Cardiology at [place] [phone] Sadi Styles MD [facility] [place] [address] 05/29/2024 10:15 AM EDT TH Visit (TeleHealth) [place] [address] Natalee Sanchez, SERVICE TECHNICIAN [facility] [place] [address] Scheduled Procedures Name Priority Associated Diagnoses Date/Ti me INJECTION, ANESTHETIC AGENT AND/OR STEROID, TRANSFORAMINAL EPIDURAL, LUMBAR OR SACRAL, SINGLE LEVEL (WRVU 1.9) Left lumbar radiculopathy 05/08/2024 10:30 AM EDT documented as of this encounter Procedures Procedure Name Priority Date/Time Associated Diagnosis Comments IR DRAIN CHECK/CHANGE/REMOV E Routine 03/13/2021 8:20 AM EDT Chronic pancreatitis, unspecified pancreatitis type Pancreatic pseudocyst RUQ pain Pancreatic abscess documented in this encounter Results * IR Drain Check/Change/Remove (03/13/2021 8:20 AM EDT) Anatomical Region Laterality Modality Head X-Ray Angiograph y Narrative 03/13/2021 8:51 AM EDT IR PROCEDURE NOTE ?? Procedure: Retroperitoneal drain injection. ?? Indication for Procedure: Per Toyin Chavarria Leslie Wans??is a 65 y.o.??female??with SIMMONS cirrhosis (biopsy confirmed 2007), prior??cholecystectomy, HTN, HLD, DMII complicated by??diabetic neuropathy, GERD, prior TIA, &??CKD??III, and prior admissions for post-ERCP pancreatitis and diastolic heart failure. Underwent CT-guided drain placement into??sloane-pancreatic fluid collection??in the setting of pancreatitis??on 02/20. ??The case was reviewed by the Surgical and Gastrointestinal Services and??prior to??drainage catheter placement into the collection. The drain was placed via a??retroperitoneal approach for planned future surgical intervention. ?? Ms. Lion reports she has, until recently, had 30 to 40 cc/day drain output, In the past 2 days outputs dropped to 10 to 20 cc. ?? Procedure events and findings: Patient was positioned prone on procedure table and sterile prep and drape performed. ??Maximum sterile barrier technique was used throughout. ??Contrast injection via the drainage catheter showed a stellate residual cavity. ??There was no communication seen to bowel or pancreatic duct. The residual cavity was however larger than felt to be appropriate for drain removal so drain left in place. ??Due for CT later today. ??Will plan for additional f/u and if CT unimpressive and drain output remains low would be more optimistic about drain removal. ?? Medications: 2% lidocaine gel, topical. ?? Est Blood Loss: <5cc. ?? Complications: ??No immediate. ?? Impression: ?? 1. ??Stellate residual space larger than felt to be appropriate for drain removal. ?? 2. ??No connection seen to bowel or pancreatic duct. ?? 3. ??Will plan for f/u drain study. ?? Resident/Fellow: ??None. ?? Attending: IDr. Jamil performed this procedure. ? Prone Mauro Thomas DO IMG IR ORDERABLES documented in this encounter Visit Diagnoses Diagnosis Chronic pancreatitis, unspecified pancreatitis type Pancreatic pseudocyst Cyst and pseudocyst of pancreas RUQ pain Abdominal pain, right upper quadrant Pancreatic fluid collection with possible abscess Acute pancreatitis Left lumbar radiculopathy Thoracic or lumbosacral neuritis or radiculitis, unspecified documented in this encounter Administered Medications Inactive Administered Medications - up to 3 most recent administrations Medication Order MAR Action Action Date Dose Rate Site iohexoL (Omnipaque) (350 mg/mL) injection solution 1-500 mL 1-500 mL, Intravenous, ONCE, 1 dose, On Jodee 03/13/21 at 0730, Warning Vesicant/Irritant Medication , Angio/IR (Intra-Procedure), Routine Given 03/13/2021 8:20 AM EDT 10 mLs lidocaine (XYLOCAINE) 2 % jelly Topical (Top), EVERY 4 HOURS PRN, Pain, Starting on Jodee 03/13/21 at 0711, Until Jodee 03/13/21 at 0829, For use in Interventional Radiology (IR) only for procedure with direct provider supervision and verbal order., Angio/IR (Intra-Procedure) Given 03/13/2021 7:12 AM EDT 1 Bottle documented in this encounter Care Teams Legal Director Relationship Specialty Start Date End Date Asia Gil DO [address] [place] [address] PCP - General Family Medicine 07/09/20 documented as of this encounter
--- OUTSIDE RECORDS SUMMARY | 2024-05-02 12:08 | XMS_ITS | Encounter Summary ---
Author Organization [facility], [facility]–[address] [place] [address] Care Team Providers Care Identification Printing Machine Setter Name Role Phone Asia Gil DO Primary Care Provider +1- [phone] Reason for Referral * Consultation (Routine) - Closed Specialty Diagnoses / Procedures Referred By Contact Referred To Contact Cardiac Rehabilitation Diagnoses S/P coronary artery stent placement Antonio Cruz MD [facility] [place] [address] [place] [address] Referral ID Status Reason Start Date Expiration Date V isits Requested Visits Authorized [id number] Closed Consult, Test & Treat 04/15/2021 10/12/2021 36 36 Encounter Details Date Type Department Care Team (Late st Contact Info) Description 04/15/2021 [place] [phone] Whitley Thompson RN S/P coronary artery stent placement Social History Tobacco Use Types Packs/Day Years [...] as of this encounter Progress Notes * Whitley Thompson RN - 04/15/2021 3:19 PM EDT I called and spoke with this patient regarding participation in outpatient cardiac rehab. She is s/p PCI and was discharged home over the weekend. She agreed to a referral to [facility]. Will sendthe discharge summary and referral to [facility] cardiac rehab today. She should expect to hear from themin 7-10 days. documented in this encounter Plan of Treatment Upcoming Encounters Date Type Department Care Team (Latest Contact Info) Description 05/08/2024 10:30 AM EDT Hospital [place] [address] Bk Contreras MD [facility] [place] [address] 05/08/2024 10:30 AM EDT - 05/08/2024 11:00 AM EDT [place] [phone] Bk Contreras MD [facility] [place] [address] INJECTION, ANESTHETIC AGENT AND/OR STEROID, TRANSFORAMINAL EPIDURAL, LUMBAR OR SACRAL, SINGLE LEVEL (WRVU 1.9) 05/12/2024 1:00 PM EDT Office Visit Cardiology at [address] [phone] Sadi Styles MD [facility] [place] [address] 05/29/2024 10:15 AM EDT TH Visit (TeleHealth) [place] [address] Natalee Sanchez APRN [facility] [place] [address] Scheduled Procedures Name Priority Associated Diagnoses Date/Ti me INJECTION, ANESTHETIC AGENT AND/OR STEROID, TRANSFORAMINAL EPIDURAL, LUMBAR OR SACRAL, SINGLE LEVEL (WRVU 1.9) Left lumbar radiculopathy 05/08/2024 10:30 AM EDT Scheduled Referrals Name Type Priority Associated Diagnoses Orde r Schedule Referral to Cardiac Rehab Outpatient Referral Routine S/P coronary artery stent placement Ordered: 04/15/2021 documented as of this encounter Visit Diagnoses Diagnosis S/P coronary artery stent placement Postsurgical percutaneous transluminal coronary angioplasty status Left lumbar radiculopathy Thoracic or lumbosacral neuritis or radiculitis, unspecified documented in this encounter Care Teams Identification Printing Machine Setter Relationship Specialty Start Date End Date Asia Gil DO [address] [facility] [place] [address] PCP - General Family Medicine 07/09/20 documented as of this encounter
--- OUTSIDE RECORDS SUMMARY | 2024-05-02 12:08 | XMS_ITS | Encounter Summary ---
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 Name Role Phone Asia Gil DO Primary Care Provider [phone] Reason for Visit * Auth/Cert Specialty Diagnoses / Procedures Referred By Contac t Referred To Contact Diagnoses ASCVD (arteriosclerotic cardiovascular disease) [I25.10] Procedures PRG CATH PLMT LEFT HEART CATH & ARTS W/INJ & ANGIO IMG S&I CARDIAC CATHETERIZATION CORONARY ANGIOGRAPHY; W [facility],POSSIBLE PCI Referral ID Status Reason Start Date Expiration Date Visits Re quested Visits Authorized [id number] 1 1 Encounter Details Date Type Department Care Team (Late st Contact Info) Description 04/11/2021 10:51 AM EDT - 04/11/2021 11:51 AM EDT [place] [address] Antonio Cruz MD [facility] [place] [address] [place] [address] CARDIAC CATHETERIZATION Social History Tobacco Use Types Packs/Day Years [...] Sign Reading Time Taken Comments Blood Pressure 117/51 04/11/2021 10:28 AM EDT Pulse 59 04/11/2021 10:28 AM EDT Temperature 35.9 ??C (96.6 ??F) 04/11/2021 10:28 AM E DT Respiratory Rate 14 04/11/2021 10:28 AM EDT Oxygen Saturation 100% 04/11/2021 10:28 AM EDT Inhaled Oxygen Concentration - - [...] Toyin Coley Patient Age: 65 y.o. Language: Luxembourgish Race: White Ethnicity: Not nor Admit date: [...] Pancreatic fluid collection with possible abscess ??? Dcrsa-tl-drztkli kidney injury ??? Anemia of chronic disease [...] pain Added automatically from request for surgery [id number] ??? Anxiety ??? Diabetic neuropathy ??? Nonalcoholic [...] PCI of the LAD CORONARY ANGIOGRAPHY; [facility],POSSIBLE PCI History of Presentation: Toyin Coley??is a [...] Tobacco Never Used Tobacco Comment uses [facility] Instructions Given to Patient at Discharge: There are no outpatient Patient Instructions on file for this admission. General Instructions None Future Appointments and Orders Future Appointments and Orders Future Appointments Provider Department Dept Phone 06/19/2021 9:00 AM Antonio Cruz MD Cardiology at [facility] Arrive at: Court Abstractor Area [phone] Discharge References/Attachments None Jacobo Guajardo MD Interventional Cardiology 04/11/21 6:22 PM [facility] Pager: [phone] documented in this encounter Medications at Time [...] Pancreatic fluid collection with possible abscess ??? Xknno-gd-mwvqpuf kidney injury ??? Anemia of chronic disease [...] pain Added automatically from request for surgery [id number] ??? Anxiety ??? Diabetic neuropathy ??? Nonalcoholic [...] is in the chart. Jacobo Guajardo MD Transportation Associate PGY-6 P: [phone] documented in this encounter Miscellaneous Notes * Brief Op Note - Antonio Cruz MD - 04/11/2021 2:48 PM EDT Images from the original note were not included. [facility] [place] [address] CORONARY ANGIOGRAM AND PERCUTANEOUS CORONARY INTERVENTION REPORT Patient: Toyin Coley : 1955 MR number: [id number] Date of Service: 04/11/2021 Physician Office Rep: Antonio Cruz MD Fellow: Jacobo Guajardo MD [...] obtained. The patient was brought to the pathology laboratory director and placed on the table. Time out [...] no procedural complications. ?? I provided direct [id number]-[id number] monitoring of conscious sedation which was administered [...] stenosis. There were no site complications. For [facility] CathPCI Registry Documentation: Culprit lesion/vessel: [...] 10:30 AM EDT Hospital Encounter [place] [address] Bk Contreras MD [facility] [place] [address] 05/08/2024 10:30 AM EDT - 05/08/2024 11:00 AM EDT Surgery Pain Management [place] [phone] Bk Contreras MD [facility] [place] [address] INJECTION, ANESTHETIC AGENT AND/OR STEROID, TRANSFORAMINAL EPIDURAL, LUMBAR OR SACRAL, SINGLE LEVEL (WRVU 1.9) 05/12/2024 1:00 PM EDT Office Visit Cardiology at [place] [phone] Sadi Styles MD [facility] [place] [address] 05/29/2024 10:15 AM EDT TH Visit (TeleHealth) [facility] at [place] [phone] Natalee Sanchez, KURTIS [facility] [facility] [address] Scheduled Procedures Name Priority Associated Diagnoses Date/Ti [...] 3:35 AM EDT) Neutrophils % 53.0 % [facility] Neutr Abs (ANC) 4.62 1.70 - 6.10 x10(3)/mc L [facility] Lymphocytes % 37.8 % [facility] Lymphocytes Abs 3.3(H) 0.9 - 3.2 x10(3)/[facility] Monocytes % 6.6 % [facility] Monocyte Abs 0.6 0.3 - 0.9 x10(3)/[facility] Eosinophils % 2.0 % [facility] Eosinophils Abs 0.2 0.0 - 0.4 x10(3)/[facility] Basophils % 0.5 % [facility] Basophils Abs 0.0 0.0 - 0.1 x10(3)/[facility] Immature Gran % 0.10 % [facility] Comment: Immature granulocytes(IG's)percentage and absolute count will include metamyelocytes, myelocytes, and promyelocytes. Blood smears from CBCs yielding IG's will be scanned manually for concordance. If this scan disagrees with the automated IG or if promyelocytes are noted, a manual differential will be performed. Anya Gran Abs 0.01 0.00 - 0.04 x10(3)/[facility] Blood 04/12/2021 3:35 AM EDT 04/12/2021 3:41 AM EDT Narrative Resulting Agency Comment Spec In Lab Jacobo Guajardo MD HEMATOLOGY ORDERABLE S [facility] [place] [address] * (ABNORMAL) Hemogram (04/12/2021 3:35 AM EDT) WBC 8.7 4.0 - 9.5 x10(3)/[facility] RBC 3.26(L) 4.00 - 5.21 x10(6)/[facility] Hemoglobin 9.9(L) 11.7 - 15.5 gm/dL [facility] Hematocrit 31.6(L) 35.7 - 45.8 % [facility] MCV 96.9(H) 82.6 - 94.4 [facility] MCH 30.4 27.1 - 32.0 pg [facility] MCHC 31.3(L) 31.7 - 35.0 gm/dL [facility] Platelets 254 145 - 357 x10(3)/[facility] RDWSD 51.9(H) 37.0 - 46.0 [facility] RDWCV 14.6(H) 11.5 - 14.1 % [facility] MPV 9.9 7.6 - 12.9 [facility] nRBC % Auto 0.0 % [facility] nRBC Abs Auto 0.000 0.000 - 0.000 x10(3)/[facility] Blood 04/12/2021 3:35 AM EDT 04/12/2021 3:41 AM EDT Narrative Resulting Agency Comment Spec In Lab Jacobo Guajardo MD HEMATOLOGY ORDERABLE S Performing Organization Address City/State/[facility] Co de Phone Number [facility] [place] [address] * (ABNORMAL) BMP w/fasting Glucose (04/12/2021 3:35 AM EDT) Glucose Fasting 111(H) 65 - 99 mg/dL [facility] Comment: ?Fasting* Glucose Interpretive Criteria [...] of Diabetes Mellitus, Position Statement from the [place] Diabetes [employer]. ??Diabetes Care, Volume 33, Supplement 1, Oct 2009 BUN 35(H) 8 - 18 mg/dL [facility] Creatinine 0.95 0.70 - 1.20 mg/dL [facility] Sodium 141 135 - 145 mmol/L [facility] Comment:result rechecked-emmanuel Potassium 3.8 3.5 - 5.0 mmol/L [facility] Comment: result rechecked-emmanuel Please note: ??Patients with WBC >100,000 may have falsely elevated Potassium levels. ??For accurate Potassium quantification in these patients send serum separator tube (gold top) for subsequent determinations. ??Contact the Clinical Chemistry Laboratory if there are any questions. Chloride 108(H) 98 - 107 mmol/L [facility] Comment:result rechecked-emmanuel CO2 21(L) 22 - 31 mmol/L [facility] Anion Gap 12 5 - 15 mmol/L [facility] Calcium 8.9 8.5 - 10.5 mg/dL [facility] Comment:result rechecked-emmanuel Estimated GFR 62 >=60 mL/min/1. 73 m?? [facility] Comment: This patient? s estimated [...] In Lab Antonio Cruz MD CHEMISTRY ORDERABLES [facility] [place] [address] * EKG 12 Lead (04/11/2021 3:51 PM EDT) Ventricular rate 67 BPM MUSE SYSTEM Atrial Rate 67 BPM MUSE SYSTEM P-R Interval 238 ms MUSE SYSTEM QRS Duration 84 ms MUSE SYSTEM Q-T Interval 422 ms MUSE SYSTEM QTC Calculated (Bezet) 445 ms MUSE SYSTEM Calculated P Buford 22 degrees MUSE SYSTEM Calculated R Buford 11 degrees MUSE SYSTEM Calculated T Buford 89 degrees MUSE SYSTEM INTERPRETATION Sinus rhythm with 1st degree A-V block Otherwise normal ECG When compared with ECG of 11-APR-2021 10:52, No significant change was found Confirmed by MD Albert, Immanuel ([id number]) on 04/14/2021 9:25:39 AM MUSE SYSTEM 04/11/2021 3:51 PM EDT 04/14/2021 9:25 AM EDT Antonio Navdeep Cruz MD ECG ORDERABLES Performing Organization Address [facility] Co de Phone Number MUSE SYSTEM * CARDIAC CATHETERIZATION (04/11/2021 3:50 PM EDT) Anatomical Region Laterality Modality Other Narrative 04/11/2021 5:34 PM EDT ?[facility] ? Cardiac Catheterization/Intervention Report ? Patient Name: Toyin Coley I. ? Procedure Date: 04/11/2021 ? A #: [id number] ? Primary Physician: Nancy, Antonio P ? Case #: [id number] ? File Name: [id number] ? Catheterization Order Number: [id number] ? [facility] ? Final Report [place], [place] ? Patient Name: ? Toyin I. Coley ? ID#: ?[id number] ? : ?1955 ? Procedure Date: ? [...] was designated as ASA Class II. The CSHA clinical frailty scale ?is 5: Mildly Frail. [...] procedure was Elective. The indication for ?the pathology laboratory director visit is worsening angina, stable known CAD [...] 4.0 guiding catheter and a 3.[address] [facility] [address] ??20 Mhz ?using Manual pullback. ??Imaging [...] dose administered prior to arrival in the pathology laboratory director. ?Recommended anti-platelet/anti-thrombotic regimen: ?Start aspirin 81 mg daily now and continue for indefinitely. ?Start clopidogrel 75 mg daily now and continue for 12 months then stop. ?These recommendations are made at the time of the intervention. Patient ?and provider preferences or a changing clinical situation may require ?modification of this regimen. Consult [facility] Interventional Cardiology for ?questions. ?This patient has [...] against any medical treatment. Consult ?http://tools.acc.org/DAPTriskapp/#!/content/calculator/ or [facility] ?Interventional Cardiology for questions ? Conclusions: ?* [...] Procedure Note Antonio Cruz MD - 06/12/2021 [facility] Cardiac Catheterization/Intervention Report Patient Name: Toyin Coley I. Procedure Date: 04/11/2021 A #: [id number] Primary Physician: Antonio Cruz Case #: [id number] File Name: [id number] Catheterization Order Number: [id number] [facility] FinalReport [place], [place] Patient Name: Toyin Coley ID#:[id number] :1955 Procedure Date: April 11, 2021 Case [...] was designated as ASA Class II. The [facility] clinical frailtyscale is 5: Mildly Frail. Diagnostic Tests: Prior Coronary Angiography: LV ejection fraction within 6 months is 40%. Electrocardiography: EKG was assessed by ECG. EKG was Abnormal. EKG showed other abnormality. Medications Prior to Procedure: Aspirin, Beta Татьяна and Statin. Indications for Diagnostic Cath: The priority of the diagnostic procedure was Elective. Theindication for the pathology laboratory director visit is worsening angina, stable known CAD [...] in the mid LAD using a 6 FrIkarArthroCAD Left 4.0 guiding catheter and a 3.[address] [facility] [address] 20 Mhz using Manual pullback. Imaging [...] dose administered prior to arrival in the pathology laboratory director. Recommended anti-platelet/anti-thrombotic regimen: Start aspirin 81 mg daily now and continue for indefinitely. Start clopidogrel 75 mg daily now and continue for 12 months thenstop. These recommendations are made at the time of the intervention.Patient and provider preferences or a changing clinical situation mayrequire modification of this regimen. Consult [facility] Interventional Cardiologyfor questions. This patient has a [...] or against any medical treatment.Consult http://tools.acc.org/DAPTriskapp/#!/content/calculator/ or [facility] Interventional Cardiology for questions Conclusions: * Obstructive [...] sedation nurse. Case time = 01:02. Dr. Antonio Cruz M.D. performed the coronary angiography, [...] (Bezet) 403 ms MUSE SYSTEM Calculated P Buford 12 degrees MUSE SYSTEM Calculated R Buford 7 degrees MUSE SYSTEM Calculated T Buford 110 degrees MUSE SYSTEM INTERPRETATION Sinus bradycardia [...] AM EDT 04/11/2021 1:42 PM EDT Antonio P Nancy TURCIOS ECG ORDERABLES MUSE SYSTEM * Differential, Automated (04/11/2021 10:09 AM EDT) Neutrophils % 58.6 % [facility] Neutr Abs (ANC) 5.52 1.70 - 6.10 x10(3)/[facility] Lymphocytes % 33.0 % [facility] Lymphocytes Abs 3.1 0.9 - 3.2 x10(3)/[facility] Monocytes % 5.9 % [facility] Monocyte Abs 0.6 0.3 - 0.9 x10(3)/[facility] Eosinophils % 1.8 % [facility] Eosinophils Abs 0.2 0.0 - 0.4 x10(3)/[facility] Basophils % 0.5 % [facility] Basophils Abs 0.0 0.0 - 0.1 x10(3)/[facility] Immature Gran % 0.20 % [facility] Comment: Immature granulocytes(IG's)percentage and absolute count will include metamyelocytes, myelocytes, and promyelocytes. Blood smears from CBCs yielding IG's will be scanned manually for concordance. If this scan disagrees with the automated IG or if promyelocytes are noted, a manual differential will be performed. Anya Gran Abs 0.02 0.00 - 0.04 x10(3)/[facility] Blood 04/11/2021 10:0 9 AM EDT 04/11/2021 10:15 AM EDT Narrative Resulting Agency Comment Spec In Lab Antonio Cruz MD HEMATOLOGY ORDERABLE S [facility] [place] [address] * (ABNORMAL) Hemogram (04/11/2021 10:09 AM EDT) WBC 9.4 4.0 - 9.5 x10(3)/[facility] RBC 3.31(L) 4.00 - 5.21 x10(6)/[facility] Hemoglobin 10.0(L) 11.7 - 15.5 gm/dL [facility] Hematocrit 32.5(L) 35.7 - 45.8 % [facility] MCV 98.2(H) 82.6 - 94.4 fL [facility] MCH 30.2 27.1 - 32.0 pg [facility] MCHC 30.8(L) 31.7 - 35.0 gm/dL [facility] Platelets 252 145 - 357 x10(3)/[facility] RDWSD 53.1(H) 37.0 - 46.0 [facility] RDWCV 14.7(H) 11.5 - 14.1 % [facility] MPV 10.0 7.6 - 12.9 [facility] nRBC % Auto 0.0 % [facility] nRBC Abs Auto 0.000 0.000 - 0.000 x10(3)/[facility] Blood 04/11/2021 10:0 9 AM EDT 04/11/2021 10:15 AM EDT Narrative Resulting Agency Comment Spec In Lab Antonio Cruz MD HEMATOLOGY ORDERABLE S [facility] [place] [address] * (ABNORMAL) BMP w/fasting Glucose (04/11/2021 10:09 AM EDT) Glucose Fasting 139(H) 65 - 99 mg/dL [facility] Comment: ?Fasting* Glucose Interpretive Criteria [...] of Diabetes Mellitus, Position Statement from the [place] Diabetes [employer]. ??Diabetes Care, Volume 33, Supplement 1, Oct 2009 BUN 49(H) 8 - 18 mg/dL [facility] Creatinine 1.51(H) 0.70 - 1.20 mg/dL [facility] Sodium 139 135 - 145 mmol/L [facility] Potassium 5.1(H) 3.5 - 5.0 mmol/L [facility] Comment: Please note: ??Patients with WBC >100,000 may have falsely elevated Potassium levels. ??For accurate Potassium quantification in these patients send serum separator tube (gold top) for subsequent determinations. ??Contact the Clinical Chemistry Laboratory if there are any questions. Chloride 103 98 - 107 mmol/L [facility] CO2 25 22 - 31 mmol/L [facility] Anion Gap 11 5 - 15 mmol/L [facility] Calcium 9.8 8.5 - 10.5 mg/dL [facility] Estimated GFR 35(L) >=60 mL/min/1. 73 m?? [facility] Comment: This patient? s estimated [...] Cruz MD CHEMISTRY ORDERABLES Performing Organization Address City/State/[facility] Co de Phone Number [facility] [place] [address] documented in this encounter Visit Diagnoses Diagnosis ASCVD (arteriosclerotic cardiovascular disease) Unspecified cardiovascular disease ASCVD (arteriosclerotic cardiovascular disease) Unspecified cardiovascular disease Left lumbar radiculopathy Thoracic or lumbosacral neuritis or radiculitis, unspecified documented in this encounter Admitting Diagnoses Diagnosis CAD (coronary artery disease) Coronary atherosclerosis of unspecified type of vessel, [place] or graft documented in this encounter Administered [...] Given 04/12/2021 9:06 AM EDT 75 mg fentaNYL (pf) (50 mcg/mL) multi-dose injection ONCE PRN, Starting on Wed04/11/21 at 1515, Until Wed04/11/21 at 1549, Cath (Intra-Procedure), Routine Given 04/11/2021 3:15 PM EDT 25 mcg gabapentin (Neurontin) capsule 200 mg 200 mg, Oral, 2 TIMES DAILY, First dose on Wed04/11/21 at 2145, Until Discontinued, Routine Given 04/12/2021 9:08 AM EDT 200 mg Given 04/11/2021 10:06 PM EDT 200 mg heparin (porcine) (1,000 units/mL) injection ONCE PRN, Starting on Wed04/11/21 at 1512, Until Wed04/11/21 at 1549, Cath (Intra-Procedure), Routine Given 04/11/2021 3:34 PM EDT 1,000 Units Given 04/11/2021 3:12 PM EDT 2,000 Units Given 04/11/2021 3:00 PM EDT 5,000 Units iohexoL (Omnipaque) (350 mg/mL) injection solution ONCE PRN, Starting on Wed04/11/21 at 1545, Until Wed04/11/21 at 1549, Cath (Intra-Procedure), Routine Given 04/11/2021 3:45 PM EDT 63 mLs lisinopriL (Prinivil;Zestril) tablet 2.5 mg 2.5 mg, [...] Given 04/11/2021 7:19 PM EDT 50 mg niCARdipine (Cardene) (100 mcg/mL) dilution (PRODUCTION ROUSTABOUT) ONCE PRN, Starting on Wed04/11/21 at 1534, Until Wed04/11/21 at 1549, Intra-Operative (Intra-Procedure), Routine Given 04/11/2021 3:39 PM EDT 50 mcg Given 04/11/2021 3:34 PM EDT 100 mcg nitroGLYcerin 100 mcg/mL intracoronary dilution ONCE PRN, Starting on Wed04/11/21 at 1444, Until Wed04/11/21 at 1549, Cath (Intra-Procedure), Routine Given 04/11/2021 2:44 PM EDT 150 mcg pantoprazole EC (Protonix) tablet 40 mg 40 mg, Oral, DAILY, First dose on Wed04/11/21 at 1615, Until Discontinued, DO NOT CRUSH OR OPEN, Routine Given 04/12/2021 9:06 AM EDT 40 mg Given 04/11/2021 7:19 PM EDT 40 mg sodium chloride 0.9% infusion CONTINUOUS PRN, Starting on Wed04/11/21 at 1550, Until Wed04/11/21 at 1556, Cath (Intra-Procedure) New Bag 04/11/2021 3:50 PM EDT 300 mLs sodium chloride 0.9% infusion 125 mL/hr, Intravenous, CONTINUOUS, Starting on Wed04/11/21 at 1615, Until Wed04/11/21 at 1914, Recovery (Recovery-Hospital Unit) New Bag 04/11/2021 4:03 PM EDT 125 mL/hr 125 mL /hr verapamiL (Isoptin) (2.5 mg/mL) injection ONCE PRN, Starting on Wed04/11/21 at 1443, Until Wed04/11/21 at 1549, Administer over 2 Minutes, Cath (Intra-Procedure) Given 04/11/2021 2:43 PM EDT 2.5 mg documented in this encounter Active and [...] on Wed04/11/21 at 1615, Until Discontinued, Routine 192 (Given - Provider: Peyton Orr LPN) 0900 (Not Given - Provider: Antonio Cain RN - Reason: Patient/family refused) metoprolol succinate XL (Toprol-XL) tablet 50 mg 50 mg, Oral, DAILY, First dose on Wed04/11/21 at 1615, Until Discontinued, DO NOT CRUSH OR OPEN, Routine 1918 (Given - Provider: Peyton Orr LPN) 905 (Given - Provider: Antonio Cain RN) pantoprazole EC (Protonix) tablet 40 mg 40 mg, Oral, DAILY, First dose on Wed04/11/21 at 1615, Until Discontinued, DO NOT CRUSH OR OPEN, Routine 1918 (Given - Provider: Peyton Orr LPN) 0906 (Given - Provider: Antonio aCin, RN) Continuous Medication Order 04/10/2021 04/11/2021 04/12/2021 sodium chloride 0.9% infusion () 125 mL/hr, Intravenous, CONTINUOUS, Starting on Wed04/11/21 at 1615, Until Wed04/11/21 at 1914, Recovery (Recovery-Hospital Unit) 1603 (New Bag - Provider: Pili Carrillo RN)1920 (Stopped - Provider: Peyton Orr LPN) [...] Malhotra LPN) niCARdipine (Cardene) (100 mcg/mL) dilution (PRODUCTION ROUSTABOUT) (CANCELED) ONCE PRN, Starting on Wed04/11/21 at [...] MD) documented in this encounter 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
--- OUTSIDE RECORDS SUMMARY | 2024-05-02 12:08 | XMS_ITS | Encounter Summary ---
Author Organization [facility] [place] [address] Care Team Providers Care Joiner Name Role Phone Asia Gil DO Primary Care Provider +1- [phone] Encounter Details Date Type Department Care Team (Late st Contact Info) Description 04/01/2021 Orders Only Cardiology at [address] [phone] [facility] [place] [address] ASCVD (arteriosclerotic cardiovascular disease) Social History Tobacco [...] as of this encounter Progress Notes * Bernardo Santos RN - 04/01/2021 2:58 PM EDT Appreciate request by Dr. Cruz to assist with orders (as below): She has significant shortness of breath despite a stable hemoglobin of 9.0 g/dL on aspirin plus Plavix. ??Please schedule cardiac catheterization and PCI of the LAD. Allergies: BenzodiazepinesOther (See Comments) House Dust Hydrocodone-acetaminophenItching Metoclopramide Mold Extracts Pollen Extracts Propoxyphene HclNausea And Vomiting Unknown [Unclassified Drug] Most environmental allergies: grass, workman, trees,pollen Medications to hold: None. Patient may elect to hold diuretic on the morning of the procedure. Labs: Current and up to date. 03/20/2021 Cre 1.38/ eGFR 39 Baseline CBC, BMP day of procedure. EKG: up to date (03/20/2021). Imaging: Recent Cardiac Catheterization/ IFR 02/07/2021: Left Main There was mild diffuse (<=25% stenosis) disease of the entire vessel segment of the left main artery. Left Anterior Descending There were multiple discrete 95% calcified stenoses of the mid segment of [...] (OM1) of the LCX. Right Coronary Artery There was a 30% single discrete stenosis of the mid segment of the right coronary artery (RCA). The RCA was large. The distal segment of the RCA had a single discrete 70% stenosis. There was a 90% single discrete stenosis of the ostial segment of the right posterior descending branch (RPDA) of the RCA. The RPDA was large. There was a 50% single discrete stenosis of the ostial segment of the right artioventricular continuation (ELIER Cont) of the RCA. The ELIER Cont was large. Intravascular Imaging/Physiology: Instantaneous wave-free ratio (iFR) was determined across the 70% stenosis in the proximal LCX using a 6 Fr EBU 3.0 guiding catheter and a OmniWire. Wire delivery was successful. The IFR across the 70% proximal LCX lesion was 0.74. This lesion was hemodynamically significant. Conclusions: * Three vessel coronary artery disease (LAD, LCX and RCA) * Elevated left ventricular end diastolic pressure TTE 02/05/2021: SUMMARY: ?? 1. The left [...] study in our system available for comparison. documented in this encounter Plan of Treatment Upcoming Encounters Date Type Department Care Team (Latest Contact Info) Description 05/08/2024 10:30 AM EDT Hospital [place] [address] [facility] [place] [address] 05/08/2024 10:30 AM EDT - 05/08/2024 11:00 AM EDT [place] [address] [facility] [place] [address] INJECTION, ANESTHETIC AGENT AND/OR STEROID, TRANSFORAMINAL EPIDURAL, LUMBAR OR SACRAL, SINGLE LEVEL (WRVU 1.9) 05/12/2024 1:00 PM EDT Office Visit Cardiology at [address] [phone] [facility] [place] [address] 05/29/2024 10:15 AM EDT TH Visit (TeleHealth) [facility] [place] [phone] [facility] [place] [address] Scheduled Procedures Name Priority Associated Diagnoses Date/Ti me INJECTION, ANESTHETIC AGENT AND/OR STEROID, TRANSFORAMINAL EPIDURAL, LUMBAR OR SACRAL, SINGLE LEVEL (WRVU 1.9) Left lumbar radiculopathy 05/08/2024 10:30 AM EDT documented as of this encounter Visit Diagnoses Diagnosis ASCVD (arteriosclerotic cardiovascular disease) Unspecified cardiovascular disease Left lumbar radiculopathy Thoracic or lumbosacral neuritis or radiculitis, unspecified documented in this encounter Care Teams Joiner Relationship Specialty Start Date End Date Asia Gil DO [address] [place] [address] PCP - General Family Medicine 07/09/20 documented as of this encounter
--- OUTSIDE RECORDS SUMMARY | 2024-05-02 12:08 | XMS_ITS | Encounter Summary ---
Author Organization [facility] [place] [address] Care Team Providers Care Community Manager Name Role Phone Asia Gil DO Primary Care Provider +1- [phone] Encounter Details Date Type Department Care Team (Late st Contact Info) Description 03/01/2021 Orders [place] [address] Ghazala Bragg MD [facility] [place] [address] Social History Tobacco Use Types Packs/Day Years [...] 10:30 AM EDT Hospital Encounter [place] [address] Bk Contreras MD [facility] [place] [address] 05/08/2024 10:30 AM EDT - 05/08/2024 11:00 AM EDT [place] [address] Bk Contreras MD [facility] [place] [address] INJECTION, ANESTHETIC AGENT AND/OR STEROID, TRANSFORAMINAL EPIDURAL, LUMBAR OR SACRAL, SINGLE LEVEL (WRVU 1.9) 05/12/2024 1:00 PM EDT [place] [address] Sadi Styles MD [facility] [place] [address] 05/29/2024 10:15 AM EDT TH Visit (TeleHealth) [facility] at [place] [phone] Natalee Sanchez, [facility] [place] [address] Scheduled Procedures Name Priority Associated Diagnoses Date/Ti me INJECTION, ANESTHETIC AGENT AND/OR STEROID, TRANSFORAMINAL EPIDURAL, LUMBAR OR SACRAL, SINGLE LEVEL (WRVU 1.9) Left lumbar radiculopathy 05/08/2024 10:30 AM EDT documented as of this encounter Visit Diagnoses Not on filedocumented in this encounter Care Teams Community Manager Relationship Specialty Start Date End Date Asia Gil DO [address] [place] [id number] PCP - General Family Medicine 07/09/20 documented as of this encounter
--- OUTSIDE RECORDS SUMMARY | 2024-05-02 12:08 | XMS_ITS | Encounter Summary ---
Author Organization [facility] [place] [address] Care Team Providers Care 5Th Grade Teacher Name Role Phone Asia Gil DO Primary Care Provider [phone]- [phone] Encounter Details Date Type Department Care Team (Latest Contact Info) Description 03/20/2021 8:00 AM EDT Office Visit Cardiology at [address] [phone] Antonio Cruz MD [facility] [place] [address] Hyperlipidemia, unspecified hyperlipidemia type; Hx-TIA (transient ischemic attack); Hypertension, unspecified type; Acute on chronic combined systolic and diastolic congestive heart failure; HFrEF (heart failure with reduced ejection fraction); [...] Sign Reading Time Taken Comments Blood Pressure 132/69 03/20/2021 8:03 AM EDT Pulse 80 03/20/2021 8:03 AM EDT Temperature - - Respiratory Rate - - Oxygen Saturation 99% 03/20/2021 8:0 3 AM EDT Inhaled Oxygen Concentration - - Weight 75.9 kg (167 lb 4.8 oz) 03/20/2021 8:03 AM EDT Height 160 cm (5' 3) 03/20/2021 8:03 AM EDT patient reported Body Mass Index 29.64 03/20/2021 8:03 AM EDT documented in this encounter Patient Instructions * Patient Instructions* Antonio Cruz MD - 03/20/2021 8:00 AM EDT 1. Please start Lisinopril 2.5 mg daily 2. Check labs today and AGAIN in 1-2 weeks. 3. Await further instructions from our team regarding your stent procedure - it depends on how anemic you are. 4. Please walk daily documented in this encounter Progress Notes * Antonio Cruz MD - 03/20/2021 8:00 AM EDT Images from the original note were not included. [place] [place] [address] [phone] CARDIOLOGY OUTPATIENT CLINIC VISIT [facility] Toyin Nelson Vianca 03/20/2021 Referring Providers: DO Jeffery Cano Irene B, DO [address] [place] [id number] CARDIAC-RELEVANT PROBLEM LIST: 1. HFrEF (heart failure with reduced ejection fraction), EF 40% on echo in January 2021 2. ASCVD (arteriosclerotic cardiovascular disease) Calcified 3VD 3. Moderate MS, Echo January 2021 showed [...] 14. Pancreatic pseudocyst, Pancreatitis, Pancreatic abscess 15. Btdfz-rz-xnssyhd kidney injury 16. Anemia of chronic disease 17. Acute blood loss anemia HISTORY OF PRESENT ILLNESS: Toyin Coley is a 65 y.o. female patient presenting for an outpatient [...] abdominal wall anasarca consistent with volume overload. Pro-BNP elevated and EF reduced onecho, consistent with CHF exacerbation. Troponin on admission was elevated to 0.03, which remained flat on repeat lab. EKG showed T wave inversions which had been present in the past, and she has denied chest pain throughout admission.??TTE here reveals reduced EF with WMAs concerning for ischemia in the LAD distribution vs stress cardiomyopathy given apical kinesis demonstrated on Echo. She undergwent a left heart cath in February 2021 to evaluate her new onset LV dysfunction and low level NSTEMI. She was found to have 3VD - there was??severe 2 vessel CAD of the LAD and RCA and moderate but hemody namically significant LCX disease (iFR of the mid OM1 0.74). At that time she was referred for surgical revascularization as she has diabetes and LV dysfunctionand 3 vessel disease. She was generally thought to be a poorer candidate for Plavix given that [...] This does not need to happen acutely. THiswould allow her to potentially recover from her [...] would make surgery almost a prohibitive risk. She now returns for follow up. She does have some shortness of breath with exertion which is likelyher anginal equivalent. She does not have to do to too much before she gets short of breath. Approximately NYHA class 2-3, CCS class 2-3. TTE 02/05/2021: SUMMARY: ?? 1. The left [...] Guided Drain Pancreatic/Peripancreatic 02/20/2021 Mauro Thomas, DO [facility] RAD CAT SCAN ??? IR DRAIN CHECK/CHANGE/REMOVE 03/13/2021 IR Drain Check/Change/Remove 03/13/2021 Chris Jamil MD [facility] INTERVENTIONL RAD ??? PRO ERCP,DIAGNOSTIC N/A 01/17/2021 ERCP performed by Eliel Leigh MD at [facility] ENDOSCOPY SOCIAL HISTORY: reports that she has never smoked. She has never used smokeless tobacco. She reports previous alcohol use. She reports current drug use. Frequency: 7.00 times per week. Drug: Marijuana. FAMILY HISTORY: family history is not on file. MEDICATIONS: Current Outpatient Medications Medication Sig Dispense Refill ??? aspirin 81 mg Tablet, Chewable Take [...] taking:Reported on 03/03/2021) 14 tablet 0 ??? oxyCODONE (Roxicodone) 5 mg Tablet Take 1 tablet by mouth every 8 hours as needed for Pain. (Patient not taking: Reported on 03/20/2021) 15 tablet 0 No current facility-administered medications for this visit. ALLERGIES: Reviewed and updated as appropriate in the medical record: Benzodiazepines, House dust, Hydrocodone-acetaminophen, Metoclopramide, Mold extracts, Pollen extracts, Propoxyphene hcl, and Unknown [unclassified drug] PHYSICAL EXAMINATION: Vitals: Patient Vitals for the past 24 hrs: Pulse BP SpO2 03/20/21 0803 80 132/69 99 % Constitutional: Normal general appearance, no distress HEENT: [...] laboratory data, and imaging studies. 1. LABS: Recent Labs 02/19/21 2105 02/21/21 0309 03/13/21 1115 WBC 15.9* 15.6* -- HGB 7.4* 7.0* -- HCT 23.6* 22.0* -- PLATELET 343 328 -- NA 134* 133* -- K 4.3 4.1 -- BUN 31* 30* -- CREATININE 1.44* 1.28* 1.26* ALT 23 -- -- INR 1.3 -- -- Lab Results Component Value Date CHLPL 85 02/08/2021 HDL 19 02/08/2021 CHOLHDL 4.5 02/08/2021 TRIG 291 (H) 08/13/2010 LDLCHOL 121 (H) 08/13/2010 LDLDIRECT 17 02/08/2021 ASSESSMENT/PLAN: Toyin Coley is a 65 y.o. female patient presenting for an outpatient cardiology visit for the following cardiovascular conditions: Hyperlipidemia, unspecified hyperlipidemia type Hx-TIA (transient ischemic attack) Hypertension, unspecified type Acute on chronic combined systolic and diastolic congestive heart failure HFrEF (heart failure with reduced ejection fraction) ASCVD (arteriosclerotic cardiovascular disease) 1. Coronary disease. She still has some shortness of breath with exertion which is likely her anginal equivalent. She does not have to do to too much before she gets short of breath. Approximately NYHA class 2-3, CCS class 2-3. She is not a good surgical candidate. We discussed her options. My major concern remains heranemia, which is quite significant - Hb 7.4 in February 2021. We will re-evaluate her anemia and if she has not dropped too much, we may consider a PCI. If we proceed then we will consider a PCI of the LAD first and then re-evaluate her LCX and RCA disease. We will continue Aspirin, Plavix and high intensity statin. We will continue Toprol XL 50 mg daily and add very low dose lisinopril 2.5 mg daily. We will check a follow up BMP in 1-2 weeks. 2. CHF, EF 40%, mod MS mild , valvular heart disease. She appears mildly fluid volume up today. She should continue Torsemide 20 mg daily. We will check a BNP and increase her dose of Torsemide if needed. 3. Diabetes. I advised strict control 4. CVD. Stable 5. CKD. We will check a repeat BMP 6. Hypertension. As above Thank you for the opportunity to take care of Toyin Leslie Wans. Sincerely, Dr. Antonio Cruz MD [facility] 03/20/2021 CC: Asia Gil DO * Antonio Cruz MD - 03/20/2021 8:00 AM EDT Chase,Her LDL is well controlled but her triglycerides are not - still 295 mg/dL on Lipitor 40 mg daily. Please consider the following course of action:1. Please check total CK, AST, ALT, at baseline.2. Please start fenofibrate 45 mg daily and continue Lipitor 40 mg daily. 3. Please check repeat total CK, AST and ALT in 2 to 3 weeks. 4. Repeat lipid profile in 4 to 6 weeks. 5. She has significant shortness of breath despite a stable hemoglobin of 9.0 g/dL on aspirin plus Plavix. Please schedule cardiac catheterization and PCI of the LAD. 6. Please continue low-dose lisinopril - her creatinine has remained stable at 1.38 and potassium is also stable. Thank you. Antonio Cruz MD documented in this encounter Miscellaneous Notes * Addendum Note - Cody Laughlin - 03/20/2021 8:00 AM EDTAddended by: CODY LAUGHLIN on: 03/20/2021 10:07 AM Modules accepted: Orders documented in this encounter Plan of Treatment Upcoming Encounters Date Type Department Care Team (Latest Contact Info) Description 05/08/2024 10:30 AM EDT Hospital [place] [phone] Bk Contreras MD [facility] [place] [address] 05/08/2024 10:30 AM EDT - 05/08/2024 11:00 AM EDT [place] [phone] Bk Contreras MD [facility] [place] [address] INJECTION, ANESTHETIC AGENT AND/OR STEROID, TRANSFORAMINAL EPIDURAL, LUMBAR OR SACRAL, SINGLE LEVEL (WRVU 1.9) 05/12/2024 1:00 PM EDT Office Visit Cardiology at [place] [phone] Sadi Styles MD [facility] [place] [address] 05/29/2024 10:15 AM EDT TH Visit (TeleHealth) [facility] [place] [phone] Natalee Sanchez APRN [facility] [place] [address] Scheduled Procedures Name Priority Associated Diagnoses Date/Ti me INJECTION, ANESTHETIC AGENT AND/OR STEROID, TRANSFORAMINAL EPIDURAL, LUMBAR OR SACRAL, SINGLE LEVEL (WRVU 1.9) Left lumbar radiculopathy 05/08/2024 10:30 AM EDT documented as of this encounter Procedures Procedure Name Priority Date/Time Associated Diagnosis Comments HEMOGRAM Routine 03/20/2021 10:18 AM EDT Hyperlipidemia, unspecified hyperlipidemia type Hx-TIA (transient ischemic attack) Hypertension, unspecified type Acute on chronic combined systolic and diastolic congestive heart failure HFrEF (heart failure with reduced ejection fraction) ASCVD (arteriosclerotic cardiovascular disease) DIFFERENTIAL, AUTOMATED Routine 03/20/2021 10:18 AM EDT Hyperlipidemia, unspecified hyperlipidemia type Hx-TIA (transient ischemic attack) Hypertension, unspecified type Acute on chronic combined systolic and diastolic congestive heart failure HFrEF (heart failure with reduced ejection fraction) ASCVD (arteriosclerotic cardiovascular disease) HC CBC,PLT & AUTO DIFF Routine 03/20/2021 10:18 AM EDT Hyperlipidemia, unspecified hyperlipidemia type Hx-TIA (transient ischemic attack) Hypertension, unspecified type Acute on chronic combined systolic and diastolic congestive heart failure HFrEF (heart failure with reduced ejection fraction) ASCVD (arteriosclerotic cardiovascular disease) HC PROBNP Routine 03/20/2021 10:18 AM EDT Hyperlipidemia, unspecified hyperlipidemia type Hx-TIA (transient ischemic attack) Hypertension, unspecified type Acute on chronic combined systolic and diastolic congestive heart failure HFrEF (heart failure with reduced ejection fraction) ASCVD (arteriosclerotic cardiovascular disease) HC VENIPUNCTURE Routine 03/20/2021 10:18 AM EDT Hyperlipidemia, unspecified hyperlipidemia type Hx-TIA (transient ischemic attack) Hypertension, unspecified type Acute on chronic combined systolic and diastolic congestive heart failure HFrEF (heart failure with reduced ejection fraction) ASCVD (arteriosclerotic cardiovascular disease) BASIC METABOLIC PANEL (NON-FASTING) Routine 03/20/2021 10:18 AM EDT Hyperlipidemia, unspecified hyperlipidemia type Hx-TIA (transient ischemic attack) Hypertension, unspecified type Acute on chronic combined systolic and diastolic congestive heart failure HFrEF (heart failure with reduced ejection fraction) ASCVD (arteriosclerotic cardiovascular disease) EKG 12-LEAD Routine 03/20/2021 8:08 AM EDT Hyperlipidemia, unspecified hyperlipidemia type Hx-TIA (transient ischemic attack) Hypertension, unspecified type Acute on chronic combined systolic and diastolic congestive heart failure HFrEF (heart failure with reduced ejection fraction) ASCVD (arteriosclerotic cardiovascular disease) documented in this encounter Results * (ABNORMAL) Differential, Automated (03/20/2021 10:18 AM EDT) Neutrophils % 49.3 % [facility] Neutr Abs (ANC) 4.53 1.70 - 6.10 x10(3)/ L [facility] Lymphocytes % 35.7 % [facility] Lymphocytes Abs 3.3(H) 0.9 - 3.2 x10(3)/ L [facility] Monocytes % 10.0 % [facility] Monocyte Abs 0.9 0.3 - 0.9 x10(3)/[facility] Eosinophils % 4.3 % [facility] Eosinophils Abs 0.4 0.0 - 0.4 x10(3)/[facility] Basophils % 0.5 % [facility] Basophils Abs 0.0 0.0 - 0.1 x10(3)/[facility] Immature Gran % 0.20 % [facility] Comment: Immature granulocytes(IG's)percentage and absolute count will include metamyelocytes, myelocytes, and promyelocytes. Blood smears from CBCs yielding IG's will be scanned manually for concordance. If this scan disagrees with the automated IG or if promyelocytes are noted, a manual differential will be performed. Anya Gran Abs 0.02 0.00 - 0.04 x10(3)/ L [facility] Blood 03/20/2021 10:1 8 AM EDT 03/20/2021 10:29 AM EDT Narrative Resulting Agency Comment Spec In Lab Antonio Cruz MD HEMATOLOGY ORDERABLE S [facility] [place] [address] * (ABNORMAL) Hemogram (03/20/2021 10:18 AM EDT) WBC 9.2 4.0 - 9.5 x10(3)/[facility] RBC 3.03(L) 4.00 - 5.21 x10(6)/[facility] Hemoglobin 9.1(L) 11.7 - 15.5 gm/dL [facility] Hematocrit 29.8(L) 35.7 - 45.8 % [facility] MCV 98.3(H) 82.6 - 94.4 fL [facility] MCH 30.0 27.1 - 32.0 pg [facility] MCHC 30.5(L) 31.7 - 35.0 gm/dL [facility] Platelets 203 145 - 357 x10(3)/[facility] RDWSD 57.7(H) 37.0 - 46.0 fL [facility] RDWCV 15.9(H) 11.5 - 14.1 % [facility] MPV 10.2 7.6 - 12.9 fL [facility] nRBC % Auto 0.0 % [facility] nRBC Abs Auto 0.000 0.000 - 0.000 x10(3)/[facility] Blood 03/20/2021 10:1 8 AM EDT 03/20/2021 10:29 AM EDT Narrative Resulting Agency Comment Spec In Lab Antonio Cruz MD HEMATOLOGY ORDERABLE S [facility] [place] [address] * (ABNORMAL) pro-Brain Natriuretic Peptide (03/20/2021 10:18 AM EDT) ProBNP 557(H) <=124 pg/mL [facility] Blood 03/20/2021 10:1 8 AM EDT 03/20/2021 10:29 AM EDT Narrative Resulting Agency Comment Spec In Lab Antonio rCuz MD CHEMISTRY ORDERABLES [facility] [place] [address] * Lipid Panel (Reflex Direct LDL) (03/20/2021 10:18 AM EDT) Chol, Total 152 mg/dL [facility] Comment: Lower Risk: <200 mg/dL Average Risk: 200-239 mg/dL Higher Risk: >yj=276 mg/dL Triglycerides 295 mg/dL [facility] Comment: Average Risk/Lower Risk: <150 mg/dL Borderline High Risk: 150-199 mg/dL High Risk: 200-499 mg/dL Very High Risk: >wy=053 mg/dL HDL 39 mg/dL [facility] Comment: Males: ?? Higher Risk: <40 mg/dL Females: ?? Higher Risk: <50 mg/dL LDL Cholesterol 54 mg/dL [facility] Comment: Lowest Risk: <100 mg/dL Lower Risk: 100-129 mg/dL Borderline High Risk: 130-159 mg/dL High Risk: 160-189 mg/dL Very High Risk: >rx=925 mg/dL Chol/HDL Ratio 3.9 ratio [facility] Lipid Interpretation See Note [facility] Comment: Lipid management should be guided by a patient? s ASCVD risk, goals and preferences. ACC/AHA Guidelines recommend high intensity statin if clinical ASCVD or LDL greater than or equal to 190 mg/dL. http://Emefcyurl.com/BKH-ROJ-Dijrgfzhq Adults aged 40-75 with LDL 70-189 mg/dL should have their 10 year ASCVD risk estimated with the ACC/AHA ASCVD risk toe lining closer http://tools.acc.org/VRIXN-Tljg-Thfgherlc/ Statin should be discussed if risk greater [...] critical component of ASCVD risk reduction. Blood 03/20/2021 10:1 8 AM EDT 03/20/2021 10:29 AM EDT Narrative Resulting Agency Comment Spec In Lab Antonio Cruz MD CHEMISTRY ORDERABLES [facility] [place] [address] * (ABNORMAL) Basic Metabolic Panel (non-fasting) (03/20/2021 10:18 AM EDT) Glucose Lvl 139 65 - 199 mg/dL [facility] Comment:Diabetes: >=200 mg/d L plus symptoms BUN 34(H) 8 - 18 mg/dL [facility] Creatinine 1.38(H) 0.70 - 1.20 mg/dL [facility] Sodium 139 135 - 145 mmol/L [facility] Potassium 4.3 3.5 - 5.0 mmol/L [facility] Comment: Please note: ??Patients with WBC >100,000 may have falsely elevated Potassium levels. ??For accurate Potassium quantification in these patients send serum separator tube (gold top) for subsequent determinations. ??Contact the Clinical Chemistry Laboratory if there are any questions. Chloride 99 98 - 107 mmol/L [facility] CO2 28 22 - 31 mmol/L [facility] Anion Gap 12 5 - 15 mmol/L [facility] Calcium 9.9 8.5 - 10.5 mg/dL [facility] Estimated GFR 39(L) >=60 mL/min/1. 73 m?? [facility] Comment: This patient? s estimated glomerular filtration rate (eGFR) is between 39 mL/min/1.73 m2 (patients with less muscle mass) and 46 mL/min/1.73 m2 (patients with more muscle mass) [...] and symptoms in addition to eGFR. Blood 03/20/2021 10:1 8 AM EDT 03/20/2021 10:29 AM EDT Narrative Resulting Agency Comment Spec In Lab Antonio Cruz MD CHEMISTRY ORDERABLES Performing Organization Address City/[facility] Co de Phone Number [facility] [place] [address] * EKG 12 Lead (03/20/2021 8:08 AM EDT) Ventricular rate 78 BPM MUSE SYSTEM Atrial Rate 78 BPM MUSE SYSTEM P-R Interval 238 ms MUSE SYSTEM QRS Duration 82 ms MUSE SYSTEM Q-T Interval 410 ms MUSE SYSTEM QTC Calculated (Bezet) 467 ms MUSE SYSTEM Calculated P [place] 37 degrees MUSE SYSTEM Calculated R [place] 46 degrees MUSE SYSTEM Calculated T [place] 38 degrees MUSE SYSTEM INTERPRETATION Sinus rhythm with 1st degree A-V block Low voltage QRS Borderline ECG When compared with ECG of 19-FEB-2021 20:26, T wave inversion no longer evident in Inferior leads T wave inversion no longer evident in Anterolateral leads Confirmed by Pam Palomo MD ([id number]) on 03/20/2021 2:05:37 PM MUSE SYSTEM 03/20/2021 8:08 AM EDT 03/20/2021 2:05 PM EDT Antonio Cruz MD ECG ORDERABLES Performing Organization Address [facility] Co de Phone Number MUSE SYSTEM documented in this encounter Visit Diagnoses Diagnosis Hyperlipidemia, unspecified hyperlipidemia type Hx-TIA (transient ischemic attack) Transient ischemic attack (TIA), and cerebral infarction without residual deficits Hypertension, unspecified type Acute on chronic combined systolic and diastolic congestive heart failure Acute on chronic combined systolic and diastolic heart failure HFrEF (heart failure with reduced ejection fraction) ASCVD (arteriosclerotic cardiovascular disease) Unspecified cardiovascular disease Left lumbar radiculopathy Thoracic or lumbosacral neuritis or radiculitis, unspecified documented in this encounter Care Teams 5Th Grade Teacher Relationship Specialty Start Date End Date Asia Gli DO [address] [place] [address] PCP - General Family Medicine 07/09/20 documented as of this encounter
--- OUTSIDE RECORDS SUMMARY | 2024-05-02 12:08 | XMS_ITS | Encounter Summary ---
Author Organization [facility] [place] [address] Care Team Providers Care Fox Farmer Name Role Phone Asia Gil DO Primary Care Provider [phone]- [phone] Reason for Visit * Reason Comments Follow-up 2 week follow up Encounter Details Date Type Department Care Team (Latest Contact Info) Description 03/13/2021 2:30 PM EDT Office [place] [phone] Mauro De Los Santos MD [facility] [place] [address] Retroperitoneal abscess; Other acute pancreatitis with infected necrosis; Pancreatic abscess Social History Tobacco Use Types Packs/Day Years [...] - Inhaled Oxygen Concentration - - Weight 76 kg (167 lb 9.6 oz) 03/13/2021 2:32 PM EDT Height 160 cm (5' 2.99) 03/13/2021 2:32 PM EDT Body Mass Index 29.7 03/13/2021 2:32 PM EDT documented in this encounter Progress Notes * Mauro De Los Santos MD - 03/13/2021 2:30 PM EDT Patient: Toyin Coley : 1955 Date of service: 03/13/2021 PCP: Asia Gil DO Referring provider: Asia Gil Subjective: Toyin Coley is a 65 y.o. female who regarding her RUQ abscess. Briefly, she has a history of biopsy-proven SIMMONS cirrhosis, HTN, HLD, T2 DM, GERD, TIA, and CKD stage IIIb. She underwent laparoscopic cholecystectomy in 2015 at [facility]. During work up for abdominal pain, a gallbladder remnant containing stones was identified. She underwent an ERCP with cholangioscopy for removal of the retained stones in the remnant on 01/17/21. Removal was unsuccessful and complicated by post ERCP pancreatitis. This was further complicated by sepsis, a RUQ abscess of unclear etiology (sequelae of pancreatitis vs ERCP injury), acute diastolic heart failure, and demand ischemia. She underwent cardiac catheterization 02/07, showing three vessel coronary artery disease (LAD, LCX and RCA) and elevated LV EDP. She underwent CT-guided percutaneous drainage on 02/20. Fluid was purulent and culture grew Strep milleri and Prevotella. She has been treated with metronidazole and Augmentin. Today she denies infectious ROS. She has felt much better since drain insertion. Drainage ranges ~30-40 mL a day and is serosanguinous. Objective: No acute distress Drain secure. No signs of infection at site. Output serosanguinous Assessment: - Recurrent cholecystitis 01/2021 - H/O laparoscopic cholecystectomy 2016 (subtotal) - s/p ERCP 01/2021 - Post-ERCP pancreatitis 01/2021 - Acute diastolic heart failure - Demand ischemia. - s/p cardiac catheterization 02/07 [3v CAD (LAD, LCX and RCA) and elevated LV EDP] - RUQ abscess (sequelae of pancreatitis vs ERCP injury, Strep milleri and Prevotella) - s/p CT-guided percutaneous drain 02/20 - T2 DM - H/O TIA - HTN - HLD - CKD stage IIIb - Biopsy-proven SIMMONS cirrhosis - GERD Radiology IR study 03/13 Impression:? 1. ??Stellate residual space larger than felt to be appropriate for drain removal. ?? 2. ??No connection seen to bowel or pancreatic duct. ?? 3. ??Will plan for f/u drain study. CT 03/13 IMPRESSION ?? Markedly decreased size of the periduodenal / peripancreatic fluid collection, now with a small amount of fluid in the periduodenal region and tracking along the right hepatic lobe. No connection to the bowel or pancreatic duct identified. Dropped choledocholithiasis within the inferior margin of the residual collection; this stone was previously located within the cystic duct on prior examinations of 01/29/2021 and 01/19/2021. Discussion/Plan: - She reports and looks to be doing well today. She reports continued improvement since drain placement. The cavity remains too large for removal. Will plan on repeat IR study in 2 weeks. If the drainage comes down before then she will contact clinic ?? - the etiology remains unclear for her periduodenal/pancreatic head collection, likely a sequelae of pancreatis (infected APFC) but a type 2 or 3 ERCP injury is also possible. CT now improved so unlikely to require intervention - Regarding her remnant gallbladder, we discussed completion cholecystectomy. The timing is TBD, pending progress and outcomes of her infectious and cardiac issues. Follow up in 2 weeks with drain study documented in this encounter Plan of Treatment Upcoming Encounters Date Type Department Care Team (Latest Contact Info) Description 05/08/2024 10:30 AM EDT Hospital Encounter [place] [phone] Bk Contreras MD [facility] [place] [address] 05/08/2024 10:30 AM EDT - 05/08/2024 11:00 AM EDT [place] [phone] Bk Contreras MD [facility] [place] [address] INJECTION, ANESTHETIC AGENT AND/OR STEROID, TRANSFORAMINAL EPIDURAL, LUMBAR OR SACRAL, SINGLE LEVEL (WRVU 1.9) 05/12/2024 1:00 PM EDT Office Visit Cardiology at [address] [phone] Sadi Styles MD [facility] [place] [address] 05/29/2024 10:15 AM EDT TH Visit (TeleHealth) [facility] [place] [phone] Natalee Sanchez APRN [facility] [place] [address] Scheduled Procedures Name Priority Associated Diagnoses Date/Ti me INJECTION, ANESTHETIC AGENT AND/OR STEROID, TRANSFORAMINAL EPIDURAL, LUMBAR OR SACRAL, SINGLE LEVEL (WRVU 1.9) Left lumbar radiculopathy 05/08/2024 10:30 AM EDT documented as of this encounter Visit Diagnoses Diagnosis Retroperitoneal abscess Other retroperitoneal abscess Other acute pancreatitis with infected necrosis Pancreatic abscess Acute pancreatitis Left lumbar radiculopathy Thoracic or lumbosacral neuritis or radiculitis, unspecified documented in this encounter Care Teams Fox Farmer Relationship Specialty Start Date End Date Asia Gil DO [address] [place] [address] PCP - General Family Medicine 07/09/20 documented as of this encounter
--- OUTSIDE RECORDS SUMMARY | 2024-05-02 12:08 | XMS_ITS | Encounter Summary ---
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; Hypertension, unspecified type Social History Tobacco Use [...] 10:30 AM EDT Hospital [place] [phone] Bk Contreras MD [facility] [place] [address] 05/08/2024 10:30 AM EDT - 05/08/2024 11:00 AM [place] [address] Bk Contreras MD [facility] [place] [address] INJECTION, ANESTHETIC AGENT AND/OR STEROID, TRANSFORAMINAL EPIDURAL, LUMBAR OR SACRAL, SINGLE LEVEL (WRVU 1.9) 05/12/2024 1:00 PM EDT Office Visit Cardiology at [address] Sadi Styles MD [facility] [place] [address] 05/29/2024 10:15 AM EDT TH Visit (TeleHealth) [facility] [place] [address] Natalee Sanchez APRN [facility] [place] [address] Scheduled Procedures Name Priority Associated Diagnoses Date/Ti me INJECTION, ANESTHETIC AGENT AND/OR STEROID, TRANSFORAMINAL EPIDURAL, LUMBAR OR SACRAL, SINGLE LEVEL (WRVU 1.9) Left lumbar radiculopathy 05/08/2024 10:30 AM EDT documented as of this encounter Procedures Procedure Name Priority Date/Time Associated Diagnosis Comments HC CREATININE STAT 03/13/2021 11:15 AM EDT Type 2 diabetes mellitus without complication, unspecified whether penitentiary insulin use Hypertension, unspecified type documented in this encounter Results * (ABNORMAL) Creatinine (03/13/2021 11:15 AM EDT) Creatinine 1.26(H) 0.70 - 1.20 mg/dL [facility] Estimated GFR 44(L) >=60 mL/min/1. 73 m?? [facility] Comment: This patient? s estimated glomerular filtration rate (eGFR) is between 44 mL/min/1.73 m2 (patients with less muscle mass) and 51 mL/min/1.73 m2 (patients with more muscle mass) [...] and symptoms in addition to eGFR. Blood 03/13/2021 11:1 5 AM EDT 03/13/2021 11:39 AM EDT Narrative Resulting Agency Comment Spec In Lab Mauro De Los Santos MD CHEMISTRY ORDERABLES [facility] [place] [address] documented in this encounter Visit Diagnoses Diagnosis Type 2 diabetes mellitus without complication, unspecified whether penitentiary insulin use Hypertension, unspecified type Left lumbar radiculopathy Thoracic or lumbosacral neuritis or radiculitis, unspecified documented in this encounter Care Teams Water Proofer Relationship Specialty Start Date End Date Asia Gil DO [address] [place] [address] PCP - General Family Medicine 07/09/20 documented as of this encounter
--- OUTSIDE RECORDS SUMMARY | 2024-05-02 12:08 | XMS_ITS | Encounter Summary ---
Author Organization [facility] [place] [address] Care Team Providers Care Operation Supervisor Name Role Phone Asia Gil DO Primary Care Provider +1- [phone] Reason for Referral * Diagnostic Test (Routine) - Closed Specialty Diagnoses / Procedures Referred By Leonel chin Referred To Contact Radiology Diagnoses Idiopathic acute pancreatitis with infected necrosis Procedures CT Abdomen & Pelvis w Contrast Theodore Canseco MD [facility] [place] [address] [facility] [place] [address] Referral ID Status Reason Start Date Expiration Date V isits Requested Visits Authorized [id number] Closed Specialty Service Requested 02/21/2021 08/24/2022 1 1 Reason for Visit * Diagnostic Test (Routine) - Closed Specialty Diagnoses / Procedures Referred By Leonel chin Referred To Contact Radiology Diagnoses Idiopathic acute pancreatitis with infected necrosis Procedures CT Abdomen & Pelvis w Contrast Theodore Canseco MD [facility] [place] [address] [facility] [place] [address] Referral ID Status Reason Start Date Expiration Date V isits Requested Visits Authorized [id number] Closed Specialty Service Requested 02/21/2021 08/24/2022 1 1 Encounter Details Date Type Department Care Team (Latest Contact Info) Description 03/13/2021 10:36 AM EDT - 03/13/2021 11:59 PM EDT Hospital Encounter [place] [address] [place] [address] Idiopathic acute pancreatitis with infected necrosis Discharge Disposition: Home Social History Tobacco Use [...] 10:30 AM EDT Hospital Encounter Pain Management [facility] [place] [address] Bk Contreras MD [facility] [place] [address] 05/08/2024 10:30 AM EDT - 05/08/2024 11:00 AM EDT Surgery Pain Management [place] [phone] Bk Contreras MD [facility] [place] [address] INJECTION, ANESTHETIC AGENT AND/OR STEROID, TRANSFORAMINAL EPIDURAL, LUMBAR OR SACRAL, SINGLE LEVEL (WRVU 1.9) 05/12/2024 1:00 PM EDT Office Visit Cardiology at [place] [phone] Sadi Styles MD [facility] [place] [address] 05/29/2024 10:15 AM EDT TH Visit (TeleHealth) [facility] [place] [address] Natalee Sanchez, [facility] [place] [address] Scheduled Procedures Name Priority Associated Diagnoses Date/Ti me INJECTION, ANESTHETIC AGENT AND/OR STEROID, TRANSFORAMINAL EPIDURAL, LUMBAR OR SACRAL, SINGLE LEVEL (WRVU 1.9) Left lumbar radiculopathy 05/08/2024 10:30 AM EDT documented as of this encounter Procedures Procedure Name Priority Date/Time Associated Diagnosis Comments CT ABDOMEN AND PELVIS W CONTRAST Routine 03/13/2021 1:45 PM EDT Idiopathic acute pancreatitis with infected necrosis documented in this encounter Results * CT Abdomen & Pelvis w Contrast (03/13/2021 1:45 PM EDT) Anatomical Region Laterality Modality Abdomen, Pelvis Computed Tomogra phy 03/13/2021 1:30 PM EDT Impressions 03/13/2021 3:51 PM EDT Markedly decreased size of the periduodenal / peripancreatic fluid collection, now with a small amount of fluid in the periduodenal region and tracking along the right hepatic lobe. ??No connection to the bowel or pancreatic duct identified. ??Dropped choledocholithiasis within the inferior margin of the residual collection; this stone was previously located within the cystic duct on prior examinations of 01/29/2021 and 01/19/2021. I have personally reviewed the image(s) and the resident's interpretation and agree with the findings, Mauro Thomas DO at 03/13/2021 3:51 PM Thank you for letting us participate in the care of this patient. ??If you are a health care provider and have any questions regarding this report, please contact the number below. ??For patients who have questions please contact the health care process manager that requested your imaging first. ? Electronically signed by: Mauro Thomas DO, [facility] ([phone]), at 03/13/2021 3:51 PM Narrative 03/13/2021 3:51 PM EDT EXAMINATION: CT ABDOMEN AND PELVIS W CONTRAST CLINICAL HISTORY: Abdominal pain, acute, nonlocalized - Include more detail below Periduodenal fluid collection after ERCP. ?? now s/p drain. Looking for change in cavity size. Also interested in connection to bowel or biliary tree; Would like PO and IV contrast. TECHNIQUE: Helical CT of the abdomen and pelvis was performed following the intravenous administration of contrast. Administered 85.0 ml of VISIPAQUE 320.00 mg/ml. Oral contrast was administered. COMPARISON: CT abdomen and pelvis dated 01/29/2021. ??Correlation is made to drainage catheter evaluation of the same date, March 13, 2021 FINDINGS: Test Tube Maker Images: Noncontributory. Lower chest: Mild bibasilar atelectasis. Coronary artery, mitral annular valve, and aortic valve calcifications. Liver: Normal size and attenuation without lesions. Bile ducts: Nondilated. No fistulous connection visualized. Gallbladder: Status post cholecystectomy. Pancreas: There is a right posterior, retroperitoneal approach pigtail catheter which terminates to the right of the second portion of the duodenum. Markedly decreased size of the peripancreatic / periduodenal fluid collection, now with a stellate appearance with a small amount of fluid adjacent to the duodenum and tracking along the medial right superior/inferior hepatic lobe and inferior right retroperitoneum. There is a foci of gas within the collection along the superior right hepatic lobe (series 900, image 39); likely related to drainage catheter evaluation from earlier today. ??Just inferior to the pigtail component of the drainage catheter is a 6 mm calculus (series 901, image 79). ??On the prior examination of February 19, 2020, this was located within the ventral aspect of the large collection; however, on more remote priors of 01/29/2021 and 01/19/2021, this appears to been within the cystic duct, and is likely related to retained choledocholithiasis. Normal attenuation of the pancreas without ductal dilatation. Near complete resolution of the peripancreatic fat stranding. Spleen: Normal. Adrenals: Normal. Kidneys: Symmetric attenuation. No hydronephrosis. There is a 1 cm simple cyst in the left superior pole. There are a few bilateral sub-1 cm hypodensities, too small to characterize but likely represent cysts. Urinary Bladder: Normal. Vasculature: No aneurysm. Lymph Nodes: No enlarged lymph nodes. Bowel: No bowel wall thickening or dilatation. Trace periduodenal fat stranding and markedly decreased size of the peripancreatic /periduodenal fluid collection, as described above. No fistulous connection visualized. The terminal ileum and appendix are normal. Scattered sigmoid diverticula, without evidence of diverticulitis. Peritoneum and mesentery: As detailed above under pancreas. ??There inflammatory changes tracking along the retroperitoneum have also decreased with faint residual fat stranding along the right posterior paracolic gutter. ??There is no pneumoperitoneum. ??There is no ascites or loculated fluid collection elsewhere. Abdominal wall: At least 8 subcutaneous soft tissue nodules within the anterior abdominal wall, largest measuring 17 cm, new as compared to January 29, 2021 but stable as compared to February 18, 2021 likely related to subcutaneous medication injections. Reproductive organs: The uterus is anteverted and anteflexed. ??Limited evaluation of the adnexa is unremarkable. Osseous structures: No suspicious lesions. Mild degenerative changes of the lumbar spine with disc vacuum phenomenon and endplate sclerosis at the level of L5-S1. Procedure Note Mauro Thomas, DO - 03/13/2021 EXAMINATION: CT ABDOMEN AND PELVIS W CONTRAST CLINICAL HISTORY: Abdominal pain, acute, nonlocalized - Include moredetail below Periduodenal fluid collection after ERCP. now s/p drain. Looking forchange in cavity size. Also interested in connection to bowel or biliary tree; Wouldlike PO and IV contrast. TECHNIQUE: Helical CT of the abdomen and pelvis was performed followingthe intravenous administration of contrast. Administered 85.0 ml of KWTNTSQKI254.00 mg/ml. Oral contrast was administered. COMPARISON: CT abdomen and pelvis dated 01/29/2021. Correlation is madeto drainage catheter evaluation of the same date, March 13, 2021 FINDINGS: Test Tube Maker Images: Noncontributory. Lower chest: Mild bibasilar atelectasis. Coronary artery, mitral annularvalve, and aortic valve calcifications. Liver: Normal size and attenuation without lesions. Bile ducts: Nondilated. No fistulous connection visualized. Gallbladder: Status post cholecystectomy. Pancreas: There is a right posterior, retroperitoneal approach pigtailcatheter which terminates to the right of the second portion of the duodenum.Markedly decreased size of the peripancreatic / periduodenal fluid collection, nowwith a stellate appearance with a small amount of fluid adjacent to the duodenumand tracking along the medial right superior/inferior hepatic lobe andinferior right retroperitoneum. There is a foci of gas within the collection alongthe superior right hepatic lobe (series 900, image 39); likely related todrainage catheter evaluation from earlier today. Just inferior to the pigtailcomponent of the drainage catheter is a 6 mm calculus (series 901, image 79). Onthe prior examination of February 19, 2020, this was located within the ventralaspect of the large collection; however, on more remote priors of 01/29/2021 and01/19/2021, this appears to been within the cystic duct, and is likely related toretained choledocholithiasis. Normal attenuation of the pancreas without ductal dilatation. Near complete resolution of the peripancreatic fat stranding. Spleen: Normal. Adrenals: Normal. Kidneys: Symmetric attenuation. No hydronephrosis. There is a 1 cm simplecyst in the left superior pole. There are a few bilateral sub-1 cmhypodensities, too small to characterize but likely represent cysts. Urinary Bladder: Normal. Vasculature: No aneurysm. Lymph Nodes: No enlarged lymph nodes. Bowel: No bowel wall thickening or dilatation. Trace periduodenal fatstranding and markedly decreased size of the peripancreatic /periduodenal fluid collection, as described above. No fistulous connection visualized. Theterminal ileum and appendix are normal. Scattered sigmoid diverticula, withoutevidence of diverticulitis. Peritoneum and mesentery: As detailed above under pancreas. Thereinflammatory changes tracking along the retroperitoneum have also decreased withfaint residual fat stranding along the right posterior paracolic gutter. Thereis no pneumoperitoneum. There is no ascites or loculated fluid collectionelsewhere. Abdominal wall: At least 8 subcutaneous soft tissue nodules within theanterior abdominal wall, largest measuring 17 cm, new as compared to January 29ut stable as compared to February 18, 2021 likely related to subcutaneousmedication injections. Reproductive organs: The uterus is anteverted and anteflexed. Limited evaluation of the adnexa is unremarkable. Osseous structures: No suspicious lesions. Mild degenerative changes ofthe lumbar spine with disc vacuum phenomenon and endplate sclerosis at thelevel of L5-S1. IMPRESSION Markedly decreased size of the periduodenal / peripancreatic fluidcollection, now with a small amount of fluid in the periduodenal region and trackingalong the right hepatic lobe. No connection to the bowel or pancreatic duct identified. Dropped choledocholithiasis within the inferior margin ofthe residual collection; this stone was previously located within the cysticduct on prior examinations of 01/29/2021 and 01/19/2021. I have personally reviewed the image(s) and the resident's interpretationand agree with the findings, Mauro Thomas DO at 03/13/2021 3:51 PM Thank you for letting us participate in the care of this patient. If youare a health care provider and have any questions regarding this report,please contact the number below. For patients who have questions please contactthe health care process manager that requested your imaging first. Electronically signed by: Mauro Thomas DO, [facility]([phone]), at 03/13/2021 3:51 PM Yann Orellana MD IMG CT ORDERABLES documented in this encounter Visit Diagnoses Diagnosis Idiopathic acute pancreatitis with infected necrosis Left lumbar radiculopathy Thoracic or lumbosacral neuritis or radiculitis, unspecified documented in this encounter Administered Medications Inactive Administered Medications - up to 3 most recent administrations Medication Order MAR Action Action Date Dose Rate Site iodixanoL (Visipaque) (320 mg/mL) injection solution 0-200 mL 0-200 mL, Intravenous, ONCE PRN, 1 dose, Starting on Jodee 03/13/21 at 1346, Until Jodee 03/13/21 at 1346, Per Protocol, Radiology Contrast, Routine Given 03/13/2021 1:46 PM EDT 85 mLs iohexoL (Omnipaque) (350 mg/mL) injection solution 0-50 mL 0-50 mL, Oral, ONCE PRN, 1 dose, Starting on Jodee 03/13/21 at 1346, Until Jodee 03/13/21 at 1346, Per Protocol, Warning Vesicant/Irritant Medication , Radiology Contrast, Routine Given 03/13/2021 1:46 PM EDT 50 mLs documented in this encounter Care Teams Operation Supervisor Relationship Specialty Start Date End Date Asia Gil DO [address] [place] [address] PCP - General Family Medicine 07/09/20 documented as of this encounter
--- OUTSIDE RECORDS SUMMARY | 2024-05-02 12:08 | XMS_ITS | Encounter Summary ---
Author Organization [facility] Address [facility] [place] [address] Care Team Providers Care Staff Pharmacist Name Role Phone Asia Gil DO Primary Care Provider [phone]- [phone] Encounter Details Date Type Department Care Team (Latest Contact Info) Description 04/29/2021 10:00 AM EDT Office Visit Nephrology Hypertension at [facility] [place] [address] Magdaleno Dia MD [facility] [place] [address] Stage 3a chronic kidney disease; Hypertensive kidney disease with stage 3a chronic kidney disease Social History Tobacco Use [...] Sign Reading Time Taken Comments Blood Pressure 122/46 04/29/2021 9:51 AM EDT Pulse 65 04/29/2021 9:51 AM EDT Temperature - - Respiratory Rate - - Oxygen Saturation - - Inhaled Oxygen Concentration - - Weight 75.1 kg (165 lb 9.6 oz) 04/29/2021 9:51 A M EDT Height 160 cm (5' 2.99) 04/29/2021 9:51 AM EDT Body Mass Index 29.34 04/29/2021 9:51 AM EDT documented in this encounter Progress Notes * Magdaleno Dia MD - 04/29/2021 10:00 AM EDT PATIENT: Toyin Coley : 1955 Interval history: Reports extended stay in the hospital earlier this summer following percutaneous drainage of gallbladder -> discovering 95% LAD occlusion leading to PCI. Patient also reports that shortly is selling her house and otherwise is anticipating cardiac rehab and perhaps further diagno stic/intervention on known lesion. She has been following her blood pressure which is well controlled. Assessment/Plan: #Chronic Kidney disease Stage liley stage III/A2-3: CR 0.95 mg/dl -> eGFR ml/min 62 mL/min patient does have eGFR fluctuation reflective of hemodynamic pattern over the previous several years. Microalbuminuria present suspect diabetic disease. Significant neuropathy. Reports occasional NSAID use. History of Garcia fibrosis appears well compensated. Patient taking PPI no evidence of pyuria Plan: Will send formal UA and for surveillance of proteinuria (microalbumin/UPC). Depending on how this compares to a year ago may consider titration of RAAS inhibition. Believe patient's kidney function permissive for gabapentin dosing as neuropathy is of significant burden to her Lisinopril 2.5 mg Recommend consideration of SGLT2 inhibito as an adjuvant therapy for diabetes given recent evidenceof cardiac and renal protection ?? #Hemodynamics Hypertension well controlled blood pressure 122/46. Antihypertensives: Lisinopril 2.5 mg, metoprolol 50 mg, torsemide 20 mg Volume Status: Patient appears euvolemic Patient appears well compensated from a cardiopulmonary standpoint she is anticipating beginning cardiac rehab. Significant coronary artery disease patient is on aspirin, beta-caridad and high intensity statin. #Hemoglobin Most recent hemoglobin 9.6 g/dL slightly anemic. Would assess iron stores next blood draw Goal Hgb 10-12g/dl, Ferritin>100ng/ml, TSAT>20% ?? #Acid/Base status Most recent Bicarb 21 mmol/L consistent with mild acidosis Would Add NaHCO3 if serum bicarb persistently < 22mmol/l ?? #Bone Mineral Health Goal and stage 3 PTH: 35-70 pg/ml ?Phos 2.7-4.6 ??Ca 8.5-10.5mg/dl Renal Clinic Follow-Up Plan: 1 year Past Medical History: Diagnosis Date ??? CKD [...] Guided Drain Pancreatic/Peripancreatic 02/20/2021 Mauro Thomas, DO [facility] RAD CAT SCAN ??? IR DRAIN CHECK/CHANGE/REMOVE 03/13/2021 IR Drain Check/Change/Remove 03/13/2021 Chris Jamil MD [facility] INTERVENTIONL RAD ??? PRO ERCP,DIAGNOSTIC N/A 01/17/2021 ERCP performed by Eliel Leigh MD at [facility] ENDOSCOPY No family history on file. Social History Social History Narrative Not on file Outpatient medications: Current Outpatient Medications on File Prior to Visit Medication Sig Dispense Refill ??? lisinopriL (Prinivil;Zestril) 2.5 mg Tablet Take 1 tablet by mouth daily. 90 tablet 3 ??? torsemide (Demadex) 20 mg Tablet Take 1 tablet by mouth daily. (Patient taking differently: Take 10 mg by mouth daily.) 30 tablet 1 ??? aspirin 81 mg [...] by mouth daily. 90 tablet 3 ??? fenofibrate (TRICOR) 48 mg Tablet Take 1 tablet by mouth daily. (Patient not taking: Reported on 04/29/2021) 90 tablet 0 ??? metroNIDAZOLE (Flagyl) 500 mg Tablet Take 1 tablet by mouth 3 times daily. (Patient not taking:Reported on 03/03/2021) 14 tablet 0 ??? oxyCODONE (Roxicodone) 5 mg Tablet Take 1 tablet by mouth every 8 hours as needed for Pain. (Patient not taking: Reported on 03/20/2021) 15 tablet 0 No current facility-administered medications on file prior [...] Heart Rate Blood Pressure Respiratory Rate SpO2 Appearance - Alert, Comfortable. [...] No asterixis. STUDIES: Labs: CBC: Recent Labs 04/12/215 04/11/21 1009 03/20/21 1018 WBC 8.7 9.4 9.2 HGB 9.9* 10.0* 9.1* PLATELET 254 252 203 Chemistry: Recent Labs 04/12/21 0335 04/11/21 1009 03/20/21 1018 02/21/21 0309 02/20/21 0403 NA 141 139 139 133* 136 K 3.8 5.1* 4.3 4.1 4.1 CL 108* 103 99 97* 98 CO2 21* 25 28 27 31 BUN 35* 49* 34* 30* 30* CREATININE 0.95 1.51* 1.38* 1.28* 1.49* GLUCOSE -- -- 139 144 101 Recent Labs 04/12/21 0335 04/11/21 1009 03/20/21 1018 02/21/21 0309 02/20/21 0403 02/19/21 2105 01/17/21 2051 CALCIUM 8.9 9.8 9.9 8.8 9.7 9.4 9.4 10.2 10.2 MAGNESIUM -- -- -- 0.83 0.90 0.87 0.63* PHOS -- -- -- -- -- 4.1 3.5 LFT's: Recent Labs 02/19/21210402/08/215 02/04/21219901/28/211954 BILITOT 0.4 0.4 0.6 1.0 BILIDIR 0.2 0.2 -- 0.6* ALBUMIN 2.9* 1.9* 2.3* 1.9* ALKPHOS 310* 313* 222* 269* ALT 23 23 26 43* AST 28 47* 34* 66* Magdaleno Dia MD, MPH Section of Nephrology #[id number] documented in this encounter Miscellaneous Notes * Addendum Note - Isabella Hu LPN - 04/29/2021 10:00 AM EDTAddended by: ISABELLA HU on: 04/29/2021 11:21 AM Modules accepted: Orders documented in this encounter Plan of Treatment Upcoming Encounters Date Type Department Care Team (Latest Contact Info) Description 05/08/2024 10:30 AM EDT Hospital Encounter [place] [address] Bk Contreras MD [facility] [address] 05/08/2024 10:30 AM EDT - 05/08/2024 11:00 AM EDT Surgery [place] [phone] Bk Contreras MD [facility] [address] INJECTION, ANESTHETIC AGENT AND/OR STEROID, TRANSFORAMINAL EPIDURAL, LUMBAR OR SACRAL, SINGLE LEVEL (WRVU 1.9) 05/12/2024 1:00 PM EDT Office Visit Cardiology at [address] [address] Sadi Styles MD [facility] [place] [address] 05/29/2024 10:15 AM EDT TH Visit (TeleHealth) [place] [phone] Natalee Sanchez APRN [facility] [address] Scheduled Procedures Name Priority Associated Diagnoses Date/Ti me INJECTION, ANESTHETIC AGENT AND/OR STEROID, TRANSFORAMINAL EPIDURAL, LUMBAR OR SACRAL, SINGLE LEVEL (WRVU 1.9) Left lumbar radiculopathy 05/08/2024 10:30 AM EDT documented as of this encounter Procedures Procedure Name Priority Date/Time Associated Diagnosis Comments URINALYSIS MICROSCOPIC EXAM STAT 04/29/2021 11:00 AM EDT HC PROTEIN, QUANTITATIVE, URINE Routine 04/29/2021 11:00 AM EDT Stage 3a chronic kidney disease Hypertensive kidney disease with stage 3a chronic kidney disease HC CREATININE - NON BLOOD Routine 04/29/2021 11:00 AM EDT Stage 3a chronic kidney disease Hypertensive kidney disease with stage 3a chronic kidney disease URINALYSIS WITH REFLEX CULTURE STAT 04/29/2021 11:00 AM EDT Stage 3a chronic kidney disease Hypertensive kidney disease with stage 3a chronic kidney disease documented in this encounter Results * Urinalysis Microscopic Exam (04/29/2021 11:00 AM EDT) RBC UA 1 0 - 4 /HPF [facility] WBC UA 3 0 - 5 /HPF [facility] Squam Epith UA 2 <=4 /HPF [facility] Urine NS 04/29/2021 11:0 0 AM EDT 04/29/2021 11:52 AM EDT Narrative Resulting Agency Comment Spec In Lab Magdaleno Dia MD URINE ORDERABLES Performing Organization Address City/[facility]/ZIP Co de Phone Number [facility] [place] [address] * (ABNORMAL) Urinalysis with reflex Culture (04/29/2021 11:00 AM EDT) Glucose UA Negative Negative mg/dL [facility] Protein UA Negative Negative mg/dL [facility] Bilirubin UA Negative Negative mg/dL [facility] Comment: Clinical correlation required for positive Urine Bilirubin results as false positive may occur with some drugs and drug related products. If a false positive is suspected a serum total bilirubin should be considered if clinically indicated. Urobilinogen UA Normal Normal mg/dL [facility] pH UA 6.0 5.0 - 8.0 [facility] Blood UA Negative Negative mg/dL [facility] Ketones UA Negative Negative mg/dL [facility] Nitrite UA Negative Negative [facility] Leukocytes UA Trace(A) Negative [facility] Appearance UA Clear Clear [facility] Spec Morris UA 1.011 1.005 - 1.030 [facility] Color UA Yellow Yellow [facility] Culture Reflexed No [facility] Urine NS 04/29/2021 11:0 0 AM EDT 04/29/2021 11:52 AM EDT Narrative Resulting Agency Comment Spec In Lab Magdaleno Dia MD URINE ORDERABLES Performing Organization Address City/[facility]/ZIP Co de Phone Number [facility] [place] [address] * Protein/Creatinine Ratio, urine (04/29/2021 11:00 AM EDT) U Creatinine 28 mg/dL [facility] U Protein Ran 8 0 - 12 mg/dL [facility] Prot/Cre Ratio 0.3 ratio [facility] Urine 04/29/2021 11:0 0 AM EDT 04/29/2021 11:52 AM EDT Narrative Resulting Agency Comment Spec In Lab Magdaleno Dia MD URINE ORDERABLES Performing Organization Address City/[facility] Co de Phone Number [facility] [place] [address] * (ABNORMAL) U Albumin/Cre Ratio (04/29/2021 11:00 AM EDT) Alb/Cr Ratio, Random 57(H) 0 - 29 mcg/mg Cr [facility] Comment: Reference Ranges: <30 mcg/mg: Normal [...] 2, 357? 362 U Albumin Conc, Random 15.9 mg/L [facility] U Creatinine 28 mg/dL [facility] Urine 04/29/2021 11:0 0 AM EDT 04/29/2021 11:52 AM EDT Narrative Resulting Agency Comment Spec In Lab Magdaleno Dia MD URINE ORDERABLES Performing Organization Address City/[facility]/ZIP Co de Phone Number [facility] [place] [address] documented in this encounter Visit Diagnoses Diagnosis Stage 3a chronic kidney disease Hypertensive kidney disease with stage 3a chronic kidney disease Left lumbar radiculopathy Thoracic or lumbosacral neuritis or radiculitis, unspecified documented in this encounter Care Teams Staff Pharmacist Relationship Specialty Start Date End Date Asia Gil DO [address] [place] [address] PCP - General Family Medicine 07/09/20 documented as of this encounter
--- OUTSIDE RECORDS SUMMARY | 2024-05-02 12:08 | XMS_ITS | Encounter Summary ---
Author Organization [facility] [place] [address] Care Team Providers Care Marketing Communications Assistant Name Role Phone Jeffery Asiarafaela Dunn DO Primary Care Provider +1- [phone] Encounter Details Date Type Department Care Team (Late st Contact Info) Description 03/13/2021 Orders Only [place] [phone] Mauro De Los Santos MD [facility] [place] [address] Type 2 diabetes mellitus without complication, unspecified whether alf insulin use; Hypertension, unspecified type Social History [...] 10:30 AM EDT Hospital En[place] [phone] Bk Contreras MD [facility] [place] [address] 05/08/2024 10:30 AM EDT - 05/08/2024 11:00 AM EDT Surgery Pain Management [place] [phone] Bk Contreras MD [facility] [place] [address] INJECTION, ANESTHETIC AGENT AND/OR STEROID, TRANSFORAMINAL EPIDURAL, LUMBAR OR SACRAL, SINGLE LEVEL (WRVU 1.9) 05/12/2024 1:00 PM EDT Office Visit Cardiology at [place] [phone] Sadi Styles MD [facility] [place] [address] 05/29/2024 10:15 AM EDT TH Visit (TeleHealth) [facility] [place] [address] Natalee Sanchez, KURTIS [facility] [place] [address] Scheduled Procedures Name Priority Associated Diagnoses Date/Ti me INJECTION, ANESTHETIC AGENT AND/OR STEROID, TRANSFORAMINAL EPIDURAL, LUMBAR OR SACRAL, SINGLE LEVEL (WRVU 1.9) Left lumbar radiculopathy 05/08/2024 10:30 AM EDT documented as of this encounter Results * (ABNORMAL) Creatinine (03/13/2021 11:15 AM EDT) Creatinine 1.26(H) 0.70 - 1.20 mg/dL [facility] Estimated GFR 44(L) >=60 mL/min/1. 73 m?? [facility] Comment: This patient? s estimated [...] Mauro De Los Santos MD CHEMISTRY ORDERABLES Performing Organization Address City/State/[facility] Co de Phone Number [facility] [place] [address] documented in this encounter Visit Diagnoses Diagnosis Type 2 diabetes mellitus without complication, unspecified whether watermelon inspector insulin use Hypertension, unspecified type Left lumbar radiculopathy Thoracic or lumbosacral neuritis or radiculitis, unspecified documented in this encounter Care Teams Marketing Communications Assistant Relationship Specialty Start Date End Date sAia Gil DO [address] [facility] [address] PCP - General Family Medicine 07/09/20 documented as of this encounter
--- OUTSIDE RECORDS SUMMARY | 2024-05-02 12:08 | XMS_ITS | Encounter Summary ---
[place] [address] Care Team Providers Care Spray Foam Installer Name Role Phone Asia Gil DO Primary Care Provider +1- [phone] Reason for Visit * Reason Comments Follow-up Encounter Details Date Type Department Care Team (Late st Contact Info) Description 03/03/2021 10:00 AM EDT Office [place] [phone] [place] [address] Other acute pancreatitis with infected necrosis; Pancreatic abscess; Retroperitoneal abscess Social History Tobacco Use Types Packs/Day [...] as of this encounter Progress Notes * Yves Holt MD - 03/03/2021 10:00 AM EDT Patient: Toyin Coley : 1955 Date of service: 03/03/2021 PCP: Asia Gil DO Referring provider: Asia Gil Subjective: Toyin Coley is a 65 y.o. female who regarding her RUQ abscess. Briefly, she has a history of biopsy-proven SIMMONS cirrhosis, HTN, HLD, T2 DM, GERD, TIA, and CKD stage IIIb. She underwent laparoscopic cholecystectomy in 2015 at [facility]. During work up for abdominal pain, a [...] She has been treated with metronidazole and continues on Augmentin. Today she denies infectious ROS. She has felt much better since drain insertion. Drainage ranges ~50-75 mL/day and is purulent. Objective: This is an age appropriate, romanian speaking, white female in [facility]. She is able to converse easily and appropriately while breathing RA. Gait around the office is observed to be wnl. Her daughter is with her. Drain secure. No signs of infection at site. Output brown purulent. Emptied bulb and flushed catheter with sterile saline. Assessment: - Recurrent cholecystitis 01/2021 - H/O laparoscopic cholecystectomy 2015 (subtotal) - s/p ERCP 01/2021 - Post-ERCP [...] IIIb - Biopsy-proven SIMMONS cirrhosis - GERD Discussion/Plan: - She reports and looks to be doing well today. She reports continued improvement since drain placement. The drainage has remained consistent in appearance and amount though (purulent, ~50-75 mL/day) ?? - Regarding her periduodenal/pancreatic head collection, the etiology remains unclear. I suspect this is a sequelae of pancreatis (infected APFC) but a type 2 or 3 ERCP injury is also possible. The imaging and drainage appearance thus far is not diagnostic. Whether there is a persistent fistulous connection to the duodenum, pancreas, or biliary tree/remnant is TBD. Given her improvement though, these details are not clinically important at this moment. I recommended she continue as is. She is still on Augmentin. Strep milleri may require a longer course than would normally be expected. She isfollowing with IR for repeat drain assessments/abscessogram. A CT will be scheduled to assess progre ss. If a fistula becomes evident, this may still heal nonoperatively. I would expect the timeframe to resolution be measured in months though, as opposed to weeks for just an infection. If she beginsto worsen or progress stagnates, a step up to surgical drainage (VARD vs peritoneal approach) will be discussed.?? - Regarding her remnant gallbladder, we discussed completion cholecystectomy. The timing is TBD, pending progress and outcomes of her infectious and cardiac issues. The exception would be if transperitoneal operative management of her RUQ process becomes necessary, the remnant would be removed at that time. - Pictures were drawn and explained. The CT and ERCP images were reviewed with them as well. Majority of visit 45 minute time was spent in discussion with her and her daughter. - Follow up 2 weeks Thank you for including me in the care of your patient. Please do not hestitate to contact us with any further questions or concerns you may have. Yves Holt MD. 03/03/2021 1:22 PM office [phone] fax [phone] documented in this encounter Plan of Treatment Upcoming Encounters Date Type Department Care Team (Latest Contact Info) Description 05/08/2024 10:30 AM EDT Hospital [place] [phone] Bk Contreras MD [facility] [place] [address] 05/08/2024 10:30 AM EDT - 05/08/2024 11:00 AM EDT Surgery Pain Management [place] [phone] Bk Contreras MD [facility] [place] [address] INJECTION, ANESTHETIC AGENT AND/OR STEROID, TRANSFORAMINAL EPIDURAL, LUMBAR OR SACRAL, SINGLE LEVEL (WRVU 1.9) 05/12/2024 1:00 PM EDT [place] [address] Sadi Styles MD [facility] [place] [address] 05/29/2024 10:15 AM EDT TH Visit (TeleHealth) Pain and Spine Center at [place] [phone] Natalee Sanchez, KURTIS [facility] [place] [address] Scheduled Procedures Name Priority Associated Diagnoses Date/Ti me INJECTION, ANESTHETIC AGENT AND/OR STEROID, TRANSFORAMINAL EPIDURAL, LUMBAR OR SACRAL, SINGLE LEVEL (WRVU 1.9) Left lumbar radiculopathy 05/08/2024 10:30 AM EDT documented as of this encounter Visit Diagnoses Diagnosis Other acute pancreatitis with infected necrosis Pancreatic abscess Acute pancreatitis Retroperitoneal abscess Other retroperitoneal abscess Left lumbar radiculopathy Thoracic or lumbosacral neuritis or radiculitis, unspecified documented in this encounter Care Teams Spray Foam Installer Relationship Specialty Start Date End Date Asia Gil DO [address] [place] [address] PCP - General Family Medicine 07/09/20 documented as of this encounter
--- OUTSIDE RECORDS SUMMARY | 2024-05-02 12:08 | XMS_ITS | Encounter Summary ---
Author Organization [facility] [place] [address] Care Team Providers Care Shot Hole Driller Name Role Phone Asia Gil DO Primary Care Provider +1- [phone] Encounter Details Date Type Department Care Team (Latest Contact Info) Description 03/20/2021 9:00 AM EDT Office [place] [address] Yves Holt MD [facility] [place] [address] Retroperitoneal abscess; Retained gallstones following laparoscopic cholecystectomy Social History Tobacco Use Types Packs/Day Years [...] Progress Notes * Yves Holt MD - 03/20/2021 9:00 AM EDT Patient: Toyin Coley : 1955 Date of service: 03/20/2021 PCP: Asia Gil DO Referring provider: Asia Gil Subjective: Toyin Coley is a 65 y.o. female who regarding her RUQ abscess. Briefly, she has a history of biopsy-proven SIMMONS cirrhosis, HTN, HLD, T2 DM, GERD, TIA, and CKD stage IIIb. She underwent laparoscopic cholecystectomy in 2015 at [facility]. During work up for abdominal pain, a [...] treated with metronidazole and continues on Augmentin. Repeat CT 03/13 showed a decreased cavity but a gallstone from the remnant is now inthe cavity. Today she reports the drainage has become and remained serous. Output has been minimal for the pastweek. She denies infectious ROS and has been off of antibiotics for several weeks. She followed with Dr Cruz/cardiology this AM. Objective: This is an age appropriate, tongan speaking, white female in [facility]. She is able to converse easily and appropriately while breathing RA. Gait around the office is observed to be wnl. Her daughter is with her. Drain secure. No signs of infection at site. Output serous. Drain removed intact without difficulty. Dressing applied. Assessment: - Recurrent cholecystitis 01/2021 - H/O [...] reports and looks to be doing well again today. The drainage has become and remained serous. Output has been minimal for the past week. She denies infectious ROS and has been off of antibioticsfor several weeks. The drain was removed without difficulty. Dressing supplies and wound care education were given. - Regarding her periduodenal/pancreatic head collection, the CT on 03/13 showed considerable improvement in the cavity size. A gallstone from the remnant is now in the cavity though. This suggests continuity at one point, either representing erosion from inflammation into the remnant or disruption ofthe remnant during ERCP as the etiology of the abscess. The fluoroscopic studies, CT, and drainage are all without evidence of fistula. The stone seen out of the remnant increases her changes of abscess recurrence though. There are case reports of gallstone abscess out to 10 years after cholecystectomy. - Regarding her remnant gallbladder, we discussed completion cholecystectomy. The timing is TBD, pending progress and outcomes of her infectious and cardiac issues. Given the retroperitoneal gallstone seen on CT, every effort will be made to locate and remove this during surgery. - She currently seems asymptomatic from the remnant standpoint and wishes to deal with the cardiac issues first. We discussed that if her infectious issues recur, this will take precedent. Otherwise observation of the remnant and PCI first is very reasonable. - Majority of visit 45 minute time was spent in discussion with her and her daughter. - We discussed 2-3 week follow up but given her wishes and distance from here, they preferred to follow up PRN Thank you for including me in the care of your patient. Please do not hestitate to contact us with any further questions or concerns you may have. Yves Holt MD. 03/20/2021 12:37 PM office [phone] fax [phone] documented in this encounter Plan of Treatment Upcoming Encounters Date Type Department Care Team (Latest Contact Info) Description 05/08/2024 10:30 AM EDT Hospital Encounter [place] [address] Bk Contreras MD [facility] [place] [place] [address] 05/08/2024 10:30 AM EDT - 05/08/2024 11:00 AM EDT Surgery [place] [address] Bk Contreras MD [facility] [place] [address] INJECTION, ANESTHETIC AGENT AND/OR STEROID, TRANSFORAMINAL EPIDURAL, LUMBAR OR SACRAL, SINGLE LEVEL (WRVU 1.9) 05/12/2024 1:00 PM EDT Office Visit Cardiology at [address] Sadi Styles MD [facility] [place] [address] 05/29/2024 10:15 AM EDT TH Visit (TeleHealth) [facility] at [place] [phone] Natalee Sanchez APRN [facility] [place] [address] Scheduled Procedures Name Priority Associated Diagnoses Date/Ti me INJECTION, ANESTHETIC AGENT AND/OR STEROID, TRANSFORAMINAL EPIDURAL, LUMBAR OR SACRAL, SINGLE LEVEL (WRVU 1.9) Left lumbar radiculopathy 05/08/2024 10:30 AM EDT documented as of this encounter Visit Diagnoses Diagnosis Retroperitoneal abscess Other retroperitoneal abscess Retained gallstones following laparoscopic cholecystectomy Retained cholelithiasis following cholecystectomy Left lumbar radiculopathy Thoracic or lumbosacral neuritis or radiculitis, unspecified documented in this encounter Care Teams Shot Hole Driller Relationship Specialty Start Date End Date Asia Gil DO [address] [place] [address] PCP - General Family Medicine 07/09/20 documented as of this encounter
--- OUTSIDE RECORDS SUMMARY | 2024-05-02 12:08 | XMS_ITS | Encounter Summary ---
Author Organization [facility] [place] [address] Care Team Providers Care Stave Block Roller Name Role Phone Asia Gil DO Primary Care Provider +1- [phone] Reason for Visit * Reason Onset Date Comments Other 04/09/2021 cardiac cath Encounter Details Date Type Department Care Team (Late st Contact Info) Description 04/09/2021 Telephone Cardiology at [address] [phone] Marian Calvin RN Other (cardiac cath) Social History Tobacco Use Types Packs/Day Years [...] Telephone Encounter - Marian Calvin RN - 04/09/2021 4:03 PM EDT VM from Toyin that she has not heard any instructions yet about her up coming cardiac cath scheduled for Wednesday. She request a call. Chart reviewed. Returned call. Detailed message left on clearly identifiable system. Basic preprocedure instructions given like nothing to eat or drink the night before, to come with a diesel truck driver, ls and an ekg will be done in the morning prior to her cath. Was also informed to expect a call from the lab associate department sometime tomorrow between 2-6 for more specific directions. Marian Calvin RN 4A Cardiology documented in this encounter Plan of Treatment Upcoming Encounters Date Type Department Care Team (Latest Contact Info) Description 05/08/2024 10:30 AM EDT Hospital [place] [phone] Bk Contreras MD [facility] [place] [address] 05/08/2024 10:30 AM EDT - 05/08/2024 11:00 AM EDT Surgery Pain Management [place] [phone] Bk Contreras MD [facility] [place] [address] INJECTION, ANESTHETIC AGENT AND/OR STEROID, TRANSFORAMINAL EPIDURAL, LUMBAR OR SACRAL, SINGLE LEVEL (WRVU 1.9) 05/12/2024 1:00 PM EDT Office Visit Cardiology at [place] [phone] Sadi Styles MD [facility] [place] [address] 05/29/2024 10:15 AM EDT TH Visit (TeleHealth) [facility] at [place] [phone] Natalee Sanchez APRN [facility] [place] [address] Scheduled Procedures Name Priority Associated Diagnoses Date/Ti me INJECTION, ANESTHETIC AGENT AND/OR STEROID, TRANSFORAMINAL EPIDURAL, LUMBAR OR SACRAL, SINGLE LEVEL (WRVU 1.9) Left lumbar radiculopathy 05/08/2024 10:30 AM EDT documented as of this encounter Visit Diagnoses Not on filedocumented in this encounter Care Teams Stave Block Roller Relationship Specialty Start Date End Date Asia Gil DO [address] [place] [address] PCP - General Family Medicine 07/09/20 documented as of this encounter
--- OUTSIDE RECORDS SUMMARY | 2024-05-02 12:08 | XMS_ITS | Encounter Summary ---
Author Organization [facility] [place] [address] Care Team Providers Care Senior Software Qa Engineer Name Role Phone Asia Gil DO Primary Care Provider +1- [phone] Encounter Details Date Type Department Care Team (Late st Contact Info) Description 04/01/2021 Telephone Cardiology at [address] [phone] Bernardo Santos, RN Social History Tobacco Use [...] Telephone Encounter - Bernardo Santos, RN - 04/01/2021 3:21 PM EDT Successful telephone connection with Ms. Hubbard. Reviewed plan of care/ timing/ rationale as noted below. Agreeable to all. Confirms understanding by write down - repeat back method. Confirms local preferred lab is indeed [facility]. Commits to planned blood draws at recommended intervals - in surveillance of her CK, Hepatic Function, and Lipid panels - after initiation of Fenofibrate thera py. Confirms preferred local pharmacy - informed of prescription advanced. Agreeable to contact by [facility] Cath Scheduling for planned Cardiac Cath/ PCI of LAD. Recent Cath procedure, familiar with procedure and process. No additional concerns or questions to return to Dr. Cruz today. Voiced appreciation for today's call and efforts made. Chase Santos RNpuppet engineer Team Nurse [facility] Ambulatory Cardiology * Telephone Encounter - Bernardo Santos RN - 04/01/2021 2:[address] Cruz's note and his recommendations contained therein. Orders prepped. Call placed to Anders Vianca. Unsuccessful in personal connection at both listed contact numbers. VM messages left at both numbers, seeking return call, review, discussion, and confirmation of plan outlined below: Chase,Her LDL is well controlled but her [...] at 1.38 and potassium is also stable. ?? Thank you. Antonio Cruz MD Please see separate orders for planned Cardiac Catheterization of LAD. Note routed to Susan Garnett for assistance in faxing ordered labs to [facility] lab. Note routed to the Cath Scheduling Team for coordination of planned PCI. Chase Santos RNpuppet engineer Team Nurse [facility] Ambulatory Cardiology * Telephone Encounter - Bernardo Santos RN - 04/01/2021 2:29 PM EDT ----- Message from Antonio Cruz MD sent at 04/01/2021 9:34 AM EDT ----- Chase,Her LDL is well controlled but her [...] 10:30 AM EDT Hospital [place] [address] Bk Contreras MD [facility] [place] [address] 05/08/2024 10:30 AM EDT - 05/08/2024 11:00 AM EDT [place] [phone] Bk Contreras MD [facility] [place] [address] INJECTION, ANESTHETIC AGENT AND/OR STEROID, TRANSFORAMINAL EPIDURAL, LUMBAR OR SACRAL, SINGLE LEVEL (WRVU 1.9) 05/12/2024 1:00 PM EDT Office Visit Cardiology at [address] [phone] Sadi Styles MD [facility] [place] [address] 05/29/2024 10:15 AM EDT TH Visit (TeleHealth) [facility] [place] [address] Natalee Sanchez APRN [facility] [place] [address] Scheduled Procedures Name Priority Associated Diagnoses Date/Ti me INJECTION, ANESTHETIC AGENT AND/OR STEROID, TRANSFORAMINAL EPIDURAL, LUMBAR OR SACRAL, SINGLE LEVEL (WRVU 1.9) Left lumbar radiculopathy 05/08/2024 10:30 AM EDT documented as of this encounter Visit Diagnoses Diagnosis Hyperlipidemia, unspecified hyperlipidemia type Left lumbar radiculopathy Thoracic or lumbosacral neuritis or radiculitis, unspecified documented in this encounter Care Teams Senior Software Qa Engineer Relationship Specialty Start Date End Date Asia Gil DO [address] [place] [address] PCP - General Family Medicine 07/09/20 documented as of this encounter
--- OUTSIDE RECORDS SUMMARY | 2024-05-02 12:08 | XMS_ITS | Encounter Summary ---
[place] [address] Care Team Providers Care Cloth Piecer Name Role Phone Asia Gil DO Primary Care Provider +1- [phone] Encounter Details Date Type Department Care Team (Late st Contact Info) Description 02/24/2021 Telephone [place] [phone] Grace Mc Social History Tobacco Use Types Packs/Day Years [...] encounter Miscellaneous Notes * Telephone Encounter - Grace Mc - 02/24/2021 8:56 AM EDT Attempted to contact patient by telephone to coordinate a one week follow-up with a CT Scan prior. Unfortunately the telephone number on file is not working at this time. [employer] message sent to patientrequesting she call our office. ID/MECHANISM OF INJURY: Toyin Coley is a 65 y.o. female ? OR CASE INFORMATION: ? FOLLOW-UP NEEDED: Does pt need to f-u with surgeon or AGRICULTURAL EDUCATION PROFESSOR (please indicate reason if attending provider): Surgon What follow-up with TACS team is needed and how soon? 1 week. Follow-up with other services? No. Advise of Service and needs. Patient with subtotal cholecystectomy remotely who recently underwent ERCP complicated by post ERCP pancreatitis (most likely), who presented with a sloane-duodenal fluid collection s/p IR drainage. Her symptoms improved after drain placement, but not completely. ?? I am making follow up for [address] PO/IV contrast to evaluate the fluid collection and consider VARDs. Also this scan should better elucidate wether this fluid collection is actually related to an anatomic injury from ERCP. Imaging orders entered: Yes. Radiology Safety questions done for MRI/CT? Yes. New or current ostomy? Ostomy nurse shared visit no Mobility concerns: Fully ambulatory Wound vac (requires 60min clinic visit)?? No On vent??? If Yes - Needs to have someone from facility and supplies. No On Dialysis: No (SCHEDULE?) ? D/c to: home. ?? PCP Name: Asia Gil, DO ? Theodore Canseco MD 02/21/2021 documented in this encounter Plan of Treatment Upcoming Encounters Date Type Department Care Team (Latest Contact Info) Description 05/08/2024 10:30 AM EDT Hospital En[place] [address] Bk Contreras MD [facility] [place] [address] 05/08/2024 10:30 AM EDT - 05/08/2024 11:00 AM EDT [place] [phone] Bk Contreras MD [facility] [place] [address] INJECTION, ANESTHETIC AGENT AND/OR STEROID, TRANSFORAMINAL EPIDURAL, LUMBAR OR SACRAL, SINGLE LEVEL (WRVU 1.9) 05/12/2024 1:00 PM EDT Office Visit Cardiology at [address] [address] Sadi Styles MD [facility] [place] [address] 05/29/2024 10:15 AM EDT TH Visit (TeleHealth) [facility] [place] [phone] Natalee Sanchez APRN [facility] [place] [address] Scheduled Procedures Name Priority Associated Diagnoses Date/Ti me INJECTION, ANESTHETIC AGENT AND/OR STEROID, TRANSFORAMINAL EPIDURAL, LUMBAR OR SACRAL, SINGLE LEVEL (WRVU 1.9) Left lumbar radiculopathy 05/08/2024 10:30 AM EDT documented as of this encounter Visit Diagnoses Not on filedocumented in this encounter Care Teams Cloth Piecer Relationship Specialty Start Date End Date Asia Gil DO [address] [place] [address] PCP - General Family Medicine 07/09/20 documented as of this encounter
--- OUTSIDE RECORDS SUMMARY | 2024-05-02 12:09 | XMS_ITS | Encounter Summary ---
[place] [address] Care Team Providers Care Group Leader Name Role Phone Asia Gil DO Primary Care Provider [phone] Reason for Referral * Diagnostic Test (Routine) - Closed Specialty Diagnoses / Procedures Referred By Leonel chin Referred To Contact Radiology Diagnoses Idiopathic acute pancreatitis with infected necrosis Procedures CT Abdomen & Pelvis w Contrast Theodore Canseco MD [facility] [place] [address] [facility] [place] [address] Referral ID Status Reason Start Date Expiration Date V isits Requested Visits Authorized [id number] Closed Specialty Service Requested 02/21/2021 08/24/2022 1 1 * Diagnostic Test (Routine) - Closed Specialty Diagnoses / Procedures Referred By Leonel chin Referred To Contact Radiology Diagnoses Chronic pancreatitis, unspecified pancreatitis type Pancreatic pseudocyst RUQ pain Pancreatic abscess Procedures IR Drain Check/Change/Remove Mauro Thomas, [facility] [place] [address] [facility] [place] [address] Referral ID Status Reason Start Date Expiration Date V isits Requested Visits Authorized [id number] Closed Specialty Service Requested 02/20/2021 08/23/2022 1 1 Reason for Visit * Auth/Cert Specialty Diagnoses / Procedures Referred By Leonel t Referred To Contact Diagnoses Pancreatitis abdominal pain Procedures EMERGENCY IPI Referral ID Status Reason Start Date Expiration Date Visits Re quested Visits Authorized [id number] 1 1 Encounter Details Date Type Department Care Team (Latest Contact Info) Description 02/19/2021 6:22 PM EDT - 02/21/2021 4:45 PM EDT Hospital Encounter [address] [phone] [place] [address] [place] [address] [place] [address] Gastroesophageal reflux disease with esophagitis without hemorrhage; Chronic pancreatitis, unspecified pancreatitis type; Pancreatic pseudocyst; RUQ pain; Pancreatic abscess; Idiopathic acute pancreatitis with infected necrosis Discharge Disposition: Home with VNA Social History Tobacco Use Types Packs/Day Years [...] Sign Reading Time Taken Comments Blood Pressure 138/68 02/21/2021 3:13 PM EDT Pulse 82 02/21/2021 3:13 PM EDT Temperature 36.8 ??C (98.2 ??F) 02/21/2021 3:13 PM ED T Respiratory Rate 16 02/21/2021 3:13 PM EDT Oxygen Saturation 97% 02/21/2021 3:13 PM EDT Inhaled Oxygen Concentration - - Weight 73.4 kg (161 lb 13.1 oz) 02/21/2021 4:25 AM EDT Height 160 cm (5' 3) 02/19/2021 11:02 PM EDT Body Mass Index 28.66 02/19/2021 11:02 PM EDT documented in this encounter Discharge Summaries * Wei Rodriguez MD - 02/21/2021 10:34 AM EDT Images from the original note were not included. Inpatient - Discharge Summary Patient Name: Toyin Lion Patient Age: 65 y.o. Birthdate: 1955 Admit date: 02/19/2021 Discharge date and time: 02/19/2021 Attending Physician: Wei Rodriguez MD Discharge Diagnoses (Hospital Problems) and Secondary Diagnoses (Chronic Problems): Torsemide, Losartan, and Spironolactone were held on admission due to GETACHEW, presumed to be from over-diuresis as weight was slightly below dry weight. Torsemide was re-started at a lower dose (daily rather than BID) on the day of discharge. Please re-start Losartan and Spironolactone at follow-up aspermitted or necessitated by blood pressure, renal function, and potassium levels. Pancreatic drain will be left in place upon discharge per General Surgery preference. Toyin will have a CT Abdomen with PO and IV contrast next week for further surgical planning. Plavix was held upon admission; however we will resume this at discharge in advance of staged PCI with Cardiology. Toyin will be empirically treated with a 5 day course of antibiotics given leukocytosis on admission; she should take 500 mg Flagyl TID through 02/25. Active Hospital Problems Diagnosis ??? Pancreatic fluid collection with possible abscess ??? Jieig-fw-bfbytam kidney injury ??? Anemia of chronic disease ??? Acute blood loss anemia ??? HFrEF (heart failure with reduced ejection fraction) Resolved Hospital Problems No resolved problems to display. Active Non-Hospital Problems Diagnosis ??? Pancreatitis ??? Acute exacerbation of congestive heart failure ??? ASCVD (arteriosclerotic cardiovascular disease) Added automatically from request for surgery [id number] ??? Pancreatic pseudocyst ??? PONV (postoperative nausea and vomiting) ??? Cystic duct calculus ??? RUQ pain Added automatically from request for surgery [id number] ??? Anxiety ??? Diabetic neuropathy ??? Nonalcoholic [...] a utility run on 01/13/2012 Operations/Major Procedures: Major Procedures: Sloane-pancreatic fluid collection drain placement History of Presentation: 65 year-old female with a medical history of SIMMONS cirrhosis (biopsy confirmed 2007), prior lap-ronnie, HTN, HLD, DMII c/b diabetic neuropathy, GERD, prior TIA, & CKD??III/A2-3, and prior admissions for post-ERCP pancreatitis and diastolic heart failure, who is transferred from [facility] for evolving sloane-pancreatic fluid collection. Patient initially admitted from 01/17 - for post-ERCP pancreatitis with retained stone in the cystic duct. She was readmitted from 01/28- with a loculated thick walled peripancreatic fluid collection. She subsequently represented to [facility] where she was found to have a ~40 lb weight gain and fluid o verload. She was transported back to [facility] for IV diuresis. She was re-admitted from 02/04 to 02/13 forheart failure. During this admission she underwent LHC which showed 3v CAD; she was felt to be high-risk surgical candidate for CABG so plan was made for outpatient staged PCI. ?? She re-presented to [facility] on 02/18/21 with acute onset right upper quadrant sharp, constant pain withassociated nausea but no vomiting, after eating half a sandwich. Labs at OSH notable for WBC 20, Cr1.9 (baseline 1.4), AST 41, ALT 38, TB 0.4. Troponin negative. ProBNP 2600. Lipase normal at 190. CT A/P revealed mild increase in the size of the fluid collection between the pancreatic head and right hepatic lobe, with increased density of the fluid. ?? On my evaluation the patient endorses right upper abdominal pain that she rates as 7/10 and dull. She has nausea but no vomiting. She feels hungry and endorses a headache. She does not have a dyspneabut reports it is difficult to take a deep breath in because of pain. She denies diarrhea, constipation, hematochezia, and melena. Her weight was 161 lb at home, reported dry weight on prior admissions is ~170 lb. She eats a low salt diet and denies any URIs in the past month. Hospital Course: #peripancreatic fluid collection #post-ERCP pancreatitis The patient underwent placement of a drainage catheter in her pancreatic fluid collection with IR. She tolerated this procedure without issue, with subsequent improvement in her pain. Toyin was empirically treated with Zosyn on admission, but remained non-toxic throughout the duration of her stay. Lipase was normal on the day of presentation. #GETACHEW #HFrEF #CAD The patient's Losartan, aldactone, and torsemide were held in the setting of an GETACHEW on admission. As her GETACHEW was likely due to over diuresis, Toyin will be discharged on a lower dose of Torsemide in an effort to maintain euvolemia. She demonstrated no signs or symptoms of heart failure exacerbationthroughout her stay. #anemia Acute blood loss superimposed on chronic anemia. Patient's hemoglobin dropped from 8.0 to 7.0 afterdrain placement. She was transfused with 1u pRBC on the day of discharge. Important Studies and Lab Data: Labs: Lab Results Component Value Date WBC 15.6 (H) 02/21/2021 RBC 2.34 (L) 02/21/2021 HGB 7.0 (L) 02/21/2021 HCT 22.0 (L) 02/21/2021 MCV 94.0 02/21/2021 MCH 29.9 02/21/2021 MCHC 31.8 02/21/2021 PLATELET 328 02/21/2021 RDWCV 14.3 (H) 02/21/2021 Lab Results Component Value Date NA 133 (L) 02/21/2021 K 4.1 02/21/2021 CL 97 (L) 02/21/2021 CO2 27 02/21/2021 BUN 30 (H) 02/21/2021 CREATININE 1.28 (H) 02/21/2021 GLUCOSE 144 02/21/2021 GLUCFASTING 136 (H) 02/13/2021 CALCIUM 8.8 02/21/2021 ESTGFR 43 (L) 02/21/2021 Studies: CT Guided Drain Pancreatic/Peripancreatic Final Result XR Chest PA & Lateral (Generic) Final Result 1. No acute cardiopulmonary process. 2. Decreased pulmonary vascular congestion. Thank you for letting us participate in the care of this patient. If you are a health care provider and have any questions regarding this report, please contact the number below. For patients who have questions please contact the health health care legal assistant that requested your imaging first. Drain Check/Change/Remove (Results Pending) CT Abdomen & Pelvis w Contrast (Results Pending) Discharge Conditions/Prognosis: The patient was fully ambulatory independently without an oxygen requirement, with stable vital signs, tolerating a PO regimen on the day of discharge. Discharge to: Home with VNA Discharge Medications: Your Medications New Medications Dose Details metroNIDAZOLE 500 mg Tab Commonly known as: Flagyl Take 1 tablet by mouth 3 times daily. 500 mg Quantity: 14 tablet Refills: 0 Continued medications with new dosing Dose Details torsemide 20 mg Tab Commonly known as: Demadex Take 1 tablet by mouth daily. What changed: when to take this 20 mg Quantity: 30 tablet Refills: 1 Continued medications, unchanged Dose Details acetaminophen 325 [...] 200 mg Quantity: 90 capsule Refills: 12 magnesium oxide 400 mg (241.3 mg magnesium) [...] 50 mg Quantity: 30 tablet Refills: 12 oxyCODONE 5 mg Tab Commonly known as: [...] 17 g Quantity: 14 each Refills: 0 traZODone 50 mg Tab Commonly known as: Desyrel Take 0.5 tablets by mouth nightly. 25 mg Quantity: 45 tablet Refills: 3 * This list has 3 medication(s) that are the same as other medications prescribed for you. Read thedirections carefully, and ask your doctor or other care provider to review them with you. STOPPED Medications losartan 25 mg Tab Commonly known as: Cozaar spironolactone 25 mg Tab Commonly known as: Aldactone Updated Allergies/ADRs: Allergies Allergen Reactions ??? Benzodiazepines Other (See Comments) Paradoxical reaction to benzodiazepines ??? House Dust ??? Hydrocodone-Acetaminophen Itching ??? Metoclopramide ??? Mold Extracts ??? Pollen Extracts ??? Propoxyphene Hcl Nausea And Vomiting ??? Unknown [Unclassified Drug] Most environmental allergies: grass, workman, trees,pollen Instructions Given to Patient at Discharge: Patient Instructions Instructions on Discharge to Home Why you were hospitalized - A fluid collection around your pancreas Call your doctor or seek medical attention if you develop the following - chest pain, shortness of breath, fever, cough, weakness in an arm or leg Activity level - as before hospitalization Diet - no change in previous diet Driving - as before hospitalization Home Oxygen therapy - none Changes in Your Medications: New Medications: Metronidazole (Flagyl): this is an antibiotic that you will take 3 times a day until 02/25 - do not drink alcohol while taking this antibiotic as you will become violently ill if you mix thetwo - this antibiotic may cause a metallic taste in the mouth Medication dose changes: Torsemide: this is your water pill, take this daily instead of twice a day - continue to weigh yourself daily and record your weights - call your doctor if you gain more than 3lbs in a day or more than 5lbs in a week Stop these medications: Losartan Spironolactone Your doctor will discuss re-starting these medications when s/he sees you for a follow-up appointment Follow-up: PCP: follow-up appointment on 02/27 Future Appointments Date Time Provider Department Center 03/03/2021 10:00 AM Yves Holt MD [facility] SURG [facility] 03/13/2021 11:30 AM [facility] IR ROOM 2 [facility] Rad 03/20/2021 8:00 AM Antonio Cruz MD [facility] CARD 4A [facility] Your Inpatient Doctor: Wei Rodriguez MD Your Primary Care Provider: Asia Gil, For questions regarding this document or issues relating to this hospitalization on the Medical Service, please contact your inpatient physician through the [facility] Public Relations Officer . Issues afterhours and on weekends will be handled by the Hospitalist staff on-call. General Instructions INTERVENTIONAL RADIOLOGY DRAIN CARE INSTRUCTIONS Drains help to keep fluid from collecting by removing the extra blood and fluid from under the skinor from an abscess within the body. A drain is temporary. It stays in place until the drainage has slowed down or stopped. Your Provider will decide when each drain should be removed. How do I care for the drains [...] stopcock. 4. Inject saline per MD order, 5-10 cc's. Forward flush only, do not aspirate [...] want the drain to be flushed once or twice daily to keep the fluid from plugging the drain. Flush the drain with 3-5 cc daily with the syringes supplied to you. FORWARD FLUSH ONLY, DO NOT ASPIRATE BACK. When to call the Interventional Radiology Department: Please call with any questions or concerns. If it is during regular office hours, please call [phone]. If it is after regular office hours, or on weekends or holidays, please call [phone] and ask to speak to the Sales Operations Analyst coldfusion for Interventional Radiology. XX You have received medication during your procedure to help lessen anxiety and keep you comfortable. These medications affect judgement and reaction time. We recommend that you do not drive, operate equipment, sign any important documents, or smoke unattended for 24 hours following your procedure. Because of the sedation, be careful on stairs, as you may be unsteady on your feet. You may resume your regular diet as tolerated. IV site -- slight redness, or tenderness is normal, you can use a warm compress. If tenderness and redness increases or foul drainage occurs, please contact your M. D. Revised 07/27/19 Drainage Record NAME: Date of Surgery: Date: Time: If more than one drain, which one: Drainage Amount (per drain) Total Amount (per drain; in 24 hours) Future Appointments and Orders Future Appointments and Orders Future Appointments Provider Department Dept Phone 03/03/2021 10:00 AM Yves Holt MD General Surgery at [facility] Arrive at: General Farm Manager Area 4L [phone] 03/13/2021 11:30 AM [facility] IR ROOM 2 Radiology at [facility] Arrive at: 3Z INTERVENTIONAL RADIOLOGY [phone] Please expect a call from a radiology nurse within 3 days of your exam, you will need to follow theinstructions given at that time. 03/20/2021 8:00 AM Antonio Cruz MD Cardiology at [facility] Arrive at: General Farm Manager Area 4A [phone] Future Orders Complete By Expires CT Abdomen & Pelvis w Contrast [[id number] Custom] 02/28/2021 04/23/2021 Process Instructions: If patient has symptoms of hematuria consider ordering [id number] CT Urogram. Scheduling Instructions: Questions: Clinical information / yi questions: Periduodenal fluid collection after ERCP. now s/p drain. Looking for change in cavity size. Also interested in connection to bowel or biliary tree Would like PO and IV contrast. Do you want to report a missing reason for exam?: No Where will study be performed?: [facility] Radiology Stat read required?: Does patient require sedation?: GA rationale: Date of injury if applicable: IR Drain Check/Change/Remove [[id number] Custom] 03/13/2021 05/23/2021 Process Instructions: Scheduling Instructions: Comments: Questions: Where will study be performed?: [facility] Radiology Reason for exam and clinical history: Pancreatic / Sloane-Pancreatic Abscess. Retroperitoneal drianage catheter placed 02/20. Plan for possible surgical intervention; this is why a retroperitoneal approach was selected drainage catheter followup in case no surgical intervention. Clinical information / yi questions: Exam/Procedure requested: What labs need to be collected during imaging study?: Does patient require sedation?: GA rationale: Requested Time: Date of injury if applicable: Is the patient on anticoagulant / anitplatelet therapy ?: No Discharge References/Attachments: Discharge References/Attachments None Inpatient Provider Contact Information: [facility] team, pager [phone] Electronically Signed By: WEI RODRIGUEZ MD 02/21/2021 documented in this encounter Discharge Instructions * Discharge Instructions* Theodore Canseco MD - 02/21/2021 11:21 AM EDT Images from the original note [...] decide when each drain should be removed. How do I care for the drains [...] stopcock. 4. Inject saline per MD order, 5-10 cc's. Forward flush only, do not aspirate [...] want the drain to be flushed once or twice daily to keep the fluid from plugging the drain. Flush the drain with 3-5 cc daily with the syringes supplied to you. FORWARD FLUSH ONLY, DO NOT ASPIRATE BACK. When to call the Interventional Radiology Department: Please call with any questions or concerns. If it is during regular office hours, please call [phone]. If it is after regular office hours, or on weekends or holidays, please call [phone] and ask to speak to the Sales Operations Analyst coldfusion for Interventional Radiology. XX You have received medication during your procedure to help lessen anxiety and keep you comfortable. These medications affect judgement and reaction time. We recommend that you do not drive, operate equipment, sign any important documents, or smoke unattended for 24 hours following your procedure. Because of the sedation, be careful on stairs, as you may be unsteady on your feet. You may resume your regular diet as tolerated. IV site -- slight redness, or tenderness is normal, you can use a warm compress. If tenderness and redness increases or foul drainage occurs, please contact your M. D. Revised 07/27/19 Drainage Record NAME: Date of Surgery: Date: Time: If more than one drain, which one: Drainage Amount (per drain) Total Amount (per drain; in 24 hours) * Patient Instructions* Ghazala Bragg MD - 02/21/2021 11:43 AM EDT Instructions on Discharge to Home Why you were hospitalized - A fluid collection around your pancreas Call your doctor or seek medical attention if you develop the following - chest pain, shortness of breath, fever, cough, weakness in an arm or leg Activity level - as before hospitalization Diet - no change in previous diet Driving - as before hospitalization Home Oxygen therapy - none Changes in Your Medications: New Medications: Metronidazole (Flagyl): this is an antibiotic that you will take 3 times a day until 02/25 - do not drink alcohol while taking this antibiotic as you will become violently ill if you mix thetwo - this antibiotic may cause a metallic taste in the mouth Medication dose changes: Torsemide: this is your water pill, take this daily instead of twice a day - continue to weigh yourself daily and record your weights - call your doctor if you gain more than 3lbs in a day or more than 5lbs in a week Stop these medications: Losartan Spironolactone Your doctor will discuss re-starting these medications when s/he sees you for a follow-up appointment Follow-up: PCP: follow-up appointment on 02/27 Future Appointments Date Time Provider Department Center 03/03/2021 10:00 AM Yves Holt MD [facility] SURG [facility] 03/13/2021 11:30 AM [facility] IR ROOM 2 [facility] Rad 03/20/2021 8:00 AM Antonio Cruz MD [facility] CARD 4A [facility] Your Inpatient Doctor: Wei Rodriguez MD Your Primary Care Provider: Asia Gil DO [phone] For questions regarding this document or issues relating to this hospitalization on the Medical Service, please contact your inpatient physician through the [facility] Public Relations Officer . Issues afterhours and on weekends will be handled by the Hospitalist staff on-call. documented in this encounter Medications at Time of Discharge Medication Sig Dispensed Refills Start Date End Date nitroGLYcerin (Nitrostat) 0.4 mg Tablet, Sublingual Take 0.4 mg by mouth as needed. 07/08/2020 aspirin 81 mg Tablet, Chewable Take 81 [...] as of this encounter Progress Notes * Tonie Carver RN - 02/21/2021 4:45 PM EDTSumoriana: MARYSOL Progress Note The patient/field marketing representative has been provided a list of Home Health Agencies/DME vendors which servetheir preferred geographic area. A letter describing our affiliations was reviewed with them and they were educated about their right to choose where referrals are placed. Patient requests referral to: [facility] [employer] [facility]. PHONE: [phone] FAX: [phone] Expected date of discharge: 02/21/2021 Referral routed to the Automated Manufacturing Instructor for matching with agency/vendor and to provide any required information. Tonie Carver RN, BSN, MST, ACM Command And Control Officer pager#[phone] * Supriya Goddard RN - 02/21/2021 4:45 PM EDT POD 1 s/p peripancreatic CHANCE drain. VSS, afebrile today. Denied abdominal pain, nausea, SOB, dizziness. CHANCE drain in place, dressing C/D/I. Flushed with 10cc per order, tolerated well. Small amount of sanguinous output today (see I&O flowsheet). PIVs removed. AVS reviewed with pt, all questions answered. All belongings returned. DC home with VNA via private vehicle at 1630. * Ghazala Bragg MD - 02/21/2021 4:45 PM EDT Our team received the following information regarding cultures that resulted after this patient wasdischarged: TOYIN LION I [id number] Admitted: 02/19/21 18:22:00 Discharged: 02/21/21 16:45:00 Body Fluid Culture [id number] Abdominal Fl Collected: 3ZV 02/20/21 12:30:00 Rare Streptococcus milleri, anginosis group Susceptibility Testing Streptococcus milleri, anginosis group Pen 0.125 S Also; Anaerobic Culture Abnormal Rare Prevotella species This patient was discharged on Flagyl, for a total of 5 days. The Flagyl does treat Prevotella sp.,but NOT the Strep milleri. Augmentin would be reasonable for both. The patient's daughter was contacted as multiple attempts over several days at contacting the phonenumber on file for Toyin were unsuccessful.Toyin's daughter reported that her mother was doing well, afebrile, no significant abdominal pain, nausea/vomiting/diarrhea/constipation, but still had cloudy fluid coming from her drain. A prescription for Augmentin 875 mg BID x7 days was sent to the patient's pharmacy. Daughter Linda will let Toyin know. Contact information for getting in touch with our team was provided to Linda in case Toyin has any questions. Ghazala Bragg MD Internal Medicine, PGY-1 * Wei Rodriguez MD - 02/21/2021 4:20 PM EDT Hospital Medicine - Attending Day of Discharge Documentation Discharge diagnosis Active Hospital Problems Diagnosis ??? Pancreatic fluid collection with possible abscess ??? Wiseb-zl-ilpphrd kidney injury ??? Anemia of chronic disease ??? HFrEF (heart failure with reduced ejection fraction) Resolved Hospital Problems No resolved problems to display. Secondary Issues Active Non-Hospital Problems Diagnosis ??? Pancreatitis ??? Acute exacerbation of congestive heart failure ??? ASCVD (arteriosclerotic cardiovascular disease) ??? Pancreatic pseudocyst ??? PONV (postoperative nausea and vomiting) ??? Cystic duct calculus ??? RUQ pain ??? Anxiety ??? Diabetic neuropathy ??? Nonalcoholic steatohepatitis ??? Restless legs syndrome (RLS) ??? CKD (chronic kidney disease) ??? Delirium ??? Hyperlipidemia ??? Hypertension ??? Diabetes mellitus type 2, uncomplicated ??? Hx-TIA (transient ischemic attack) ??? GERD (gastroesophageal reflux disease) ??? Environmental allergies I have personally seen and examined the patient and they are ready for discharge. I spent >30 minutes (Day of Discharge Code 26889) involved in the final examination of the patient, discussion of the hospital stay, instructions for continuing care to all relevant caregivers, and preparation of discharge records, prescriptions and referral forms. Plans ? Discharge to home ? Follow-up scheduled with gen bah ? Please see the Discharge Summary for complete details of any medication changes and additional plans. * Zohra Weaver RN - 02/21/2021 11:19 AM EDT CARE MANAGEMENT FINAL DISCHARGE NOTE Chart reviewed, care reviewed with primary team and at interdisciplinary rounds. Patient is medically ready for discharge 02/21/21. Needs for Transition of Care Plan for discharge is: Home without needs Agency Referrals: None indicated Transportation: Group Social Worker spoke with Toyin, who states her son in law will arrive to pick her up at 1600 at the East entrance and transport home in private vehicle. MD and RN aware of consideration for patient to go to [place] lounge while waiting for ride. Patient states that she has been independent while in her room. Patient will need blood transfusion prior to discharge per MD. Functional status prior to admission: Independent Current Functional Ability: Stand by assist per nursing notes, 02/21 @5:45am. Current DME: None indicated DME Needed at DC: None indicated Patient is insured through: Primary Insurance: [employer] MANAGED MEDICARE Payor: AARP MANAGED MEDICARE / Plan: AARP [facility] MANAGED MEDICARE COMPLETE / Product Type: *No Product type* / Secondary Insurance: [facility] Prescription Coverage:Yes, see above Preferred Pharmacy: See below [facility] [address] [place] [address] [place] [id number] [id number] - [place], [place] - [address] [facility] [address] [facility] [id number] This plan was formulated with input from patient, Toyin Lion, and team. All are in agreement with plan. Due to current public health concerns, I have verbally reviewed Medicare Discharge Rights with patient. Patient verbalizes understanding of right to appeal this discharge if feeling not medically ready. Offered a copy of this letter, Toyin declines. Zohra Weaver, special delivery worker Office of Care Management Pager: [phone] * Andrea Munson, DO - 02/21/2021 7:00 AM EDT INTERVENTIONAL RADIOLOGY Inpatient Progress Note Admitted 02/19/2021 Procedure(s): Pancreatic Collection Drainage Catheter Placement Post-procedure day: #1 Time of patient encounter: 0700 24 Hour Events: Admits mild incisional pain at catheter site. No complaints regarding drainage catheter. WBC 15.6 down from 16.4 yesterday. Afebrile. Last Value 24 Hour Range Temperature 36.7 ??C (98.1 ??F) Temp: [36.5 ??C (97.7 ??F)-36.8 ??C (98.2 ??F)] Heart Rate 90 Heart Rate: [80-90] Blood Pressure 131/60 BP: (114-141)/(48-84) Respiratory Rate 16 Resp: [16] SpO2 98 % SpO2: [95 %-98 %] Physical Exam General No distress. Alert. Responds appropriately to questions. Pulmonary Unlabored breathing on room air. Drains/Tubes: Sloane-pancreatic 10F drain (placed 02/20): In place without evidence of change in position and to bulb suction drainage. No leakage around drain. Dressing C/D/I. The drain was forward flushed with saline without evidence of occlusion. Last 24hr output: 115 mL purulent Total output: 115 mL Labs: Reviewed Micro: No microorganisms on gram stain. No growth to date. Imaging: No interval imaging. Assessment: 65 y.o. female with history of SIMMONS cirrhosis (biopsy confirmed 2007), prior??cholecystectomy, HTN, HLD, DMII complicated by??diabetic neuropathy, GERD, prior TIA, &??CKD??III, and prior admissions for post-ERCP pancreatitis and diastolic heart failure, who is transferred from [facility] for evolving sloane-pancreatic fluid collection??in the setting of pancreatitis.??On imaging, a large pancreatic collection centered in the pancreatic head and extending outward has been increasing in size. ??The case was reviewed by the Surgical and Gastrointestinal Services and request was for percutaneous drainage catheter placement into the collection from a retroperitoneal approach for planned future surgical intervention. Now post-procedure day #1 status post Pancreatic Collection Drainage Catheter Placement without complication. Plan: IR will sign-off at this time. Please contact IR with any questions or concerns. Drain check in 3-4 weeks as a placeholder. * Adriana Canales - 02/20/2021 3:35 PM EDT Process Technician Encounter Note Patient Name: Toyin Lion : [id number] MR#: [id number] Admit Date: 02/19/2021 6:22 PM Hospital Day 1 day Narrative: Referral received from Chaplain Luisa Naylor of [facility] to provide spiritual care visit/support to pt, who has transferred to from [facility]. Assessment: Toyin had a procedure earlier today and was resting in bed when this sign writer letterer or painter arrived for a visit. She welcomed this sign writer letterer or painter in for a visit. Toyin was reflective on the long and complicated medical journey she's had through the past year, and knowing now that there is a cardiac procedure in her future. Toyin has strong support from her two dtrs (one nearby her in [place] and one in [place]), and her two grandchildren (21 yo and 15 yo), as well as from a beloved cousin. Pt identifies as Ep[employer]. Intervention and Outcome: Intro to Process Technician services. Supportive conversation and listening presence. Offered prayer with pt who shared thanks for the visit. As this sign writer letterer or painter departed the pt was preparing to eat her lunch, which had just arrived. Follow-up: Process Technician remains available for follow-up visit/support of pt. Time in Direct Care: 15 minutes ADRIANA CANALES 02/20/2021 * Alison Reyes RN - 02/20/2021 12:19 PM EDT ANGIO NURSING DATABASE Name: TOYIN LION Date of : 1955 AGE: 65 y.o. [address]: [address] [place] [id number] .intr (home) Mobile: Telephone Information: Referring Provider: Lisa Hernandez REASON FOR VISIT: Order Questions Answers Is the patient on anticoagulant / anitplatelet therapy ? Aspirin Reason for exam and clinical history: post-ercp pancreatitis c/b sloane-pancreatic fluid collection, previously on plavix but held for 2 days Plan Planned procedure: Pancreatic Collection Drainage Catheter Placement (02/20/21838) Labs to be performed day of procedure: No labs (02/20/21838) Sedation: Moderate (Conscious sedation) (02/20/21838) Prophylactic antibiotic : None (02/20/21838) Contrast: No contrast (02/20/21838) Additional medications for procedure: Lidocaine (02/20/21838) Planned access site: Right Flank (02/20/21838) Position: Prone (02/20/21838) Consent: Pending (02/20/21838) Medications to discontinue (and days held): None (02/20/21838) Cytopathology presence needed: No (02/20/21838) Case Urgency:: E- Elective IN-patient intervention within 3 days (02/20/21838) Allergies Allergen Reactions ??? Benzodiazepines Other (See [...] (arteriosclerotic cardiovascular disease) I25.10 ??? Pancreatitis K85.90 Date/Procedure Meds Given/Comments 02/19/21 Peripancreatic drain placement Fentanyl 75 mcg IV, Tolerated well 1155 to procedure room [address]1 via stretcher. Onto table prone. All monitors, O2, safety strap in place. Meds per protocol. Laboratory Results: Lab Results Component Value Date INR 1.3 02/19/2021 Lab Results Component Value Date CREATININE 1.49 (H) 02/20/2021 Lab Results Component Value Date K 4.1 02/20/2021 Lab Results Component Value Date PLATELET 393 (H) 02/20/2021 documented in this encounter H&P Notes * Mauro Thomas, DO - 02/20/2021 11:25 AM EDT INTERVENTIONAL RADIOLOGY FOCUSED H&P: Procedure: Planned procedure: Pancreatic Collection Drainage Catheter Placement The patient's history and physical exam have been reviewed and completed. There has been no interval change from that of the pre-operative history and physical exam done within the last 30 days. Physical Exam: Cardiovascular: Regular, Normal Pulmonary: Breath sounds clear to auscultation The planned procedure (and sedation plan if appropriate) , its benefits and risks, and alternativeswere discussed with the patient. The patient consented to the procedure. PRE-SEDATION ASSESSMENT: Sedation Plan: minimal (single agent only) ASA: 3: Patient with severe systemic disease Mallampati: II: tonsillar pillars are blocked by the tongue Confirm NPO status: Yes History of anesthetic complications: No Current medications reviewed: Yes Allergies reviewed: Yes Source Note - Mauro Thomas DO - 02/20/2021 8:31 AM EDT Images from the original note were not included. INTERVENTIONAL RADIOLOGY FOCUSED H&P and PRE-PROCEDURE NOTE: PCP: Asia Gil DO Referring Provider: Lisa Hernandez Planned Procedure: Planned procedure: Pancreatic Collection Drainage Catheter Placement Procedure Indication: Pancreatic Collection, Enlarging. Leukocytosis. Fever. Procedure request received through Interventional Radiology eDH order queue. Presenting Diagnosis/ Complaint: Toyin Lion is a 65 y.o. female presenting to IR for drainage catheter placement into sloane-pancreatic collection. Past medical history is significant for SIMMONS cirrhosis (biopsy confirmed 2007), prior cholecystectomy, HTN, HLD, DMII complicated by diabetic neuropathy, GERD, prior TIA, & CKD??III, and prior admissions for post-ERCP pancreatitis and diastolic heart failure, who is transferred from [facility] for evolving sloane-pancreatic fluid collection in the setting of pancreatitis. On imaging, a large pancreatic collection centered in the pancreatic head andextending outward has been increasing in size. The case was reviewed by the Surgical and Gastrointestinal Services and request is for percutaneous drainage catheter placement into the collection. Request is for a retroperitoneal approach for planned future surgical intervention. IR History: None. Antiplatelets: Aspirin 81 mg daily; Plavix 75 mg daily (has been held for 3-days currently). Anticoagulants: None. Recent Laboratories: ??? Platelets: 393 on 02/20/21. ??? INR: 1.3 on 02/19/21. ??? Creatinine: 1.49 on 02/20/21. ??? Lipase: 27 on 02/19/21 ??? Getting Laboratories Before Procedure: None. Allergies: None Pertinent. Past Medical/Surgical History: Patient Active Problem List [...] (arteriosclerotic cardiovascular disease) I25.10 ??? Pancreatitis K85.90 Past Medical History: Diagnosis Date ??? CKD (chronic kidney disease) 04/05/2020 ??? Delirium 04/05/2020 ??? Diabetes mellitus type 2, uncomplicated 05/14/2014 ??? Hx-TIA (transient ischemic attack) 05/14/2014 ??? Hyperlipidemia 05/28/2014 Off statin due to foot pain side effect ??? Hypertension 05/28/2014 ??? Restless legs syndrome (RLS) 04/05/2020 Past Surgical History: Procedure Laterality Date ??? PRO ERCP,DIAGNOSTIC N/A 01/17/2021 ERCP performed by Eliel Leigh MD at [facility] Medications: No current facility-administered medications on file prior to encounter. Current Outpatient Medications on File Prior to Encounter Medication Sig Dispense Refill ??? aspirin 81 mg Tablet, Chewable Take 81 mg by mouth daily. 90 tablet 3 ??? clopidogreL (Plavix) 75 mg Tablet Take 1 tablet by mouth daily. 90 tablet 3 ??? losartan (Cozaar) 25 mg Tablet Take 1 tablet by mouth daily. 90 tablet 3 ??? magnesium oxide (Mag-Ox) 400 mg (241.3 mg magnesium) Tablet Take 1 tablet by mouth 2 times daily. 180 tablet 3 ??? melatonin 3 mg Tablet Take 2 tablets by mouth nightly. 180 tablet 3 ??? spironolactone (Aldactone) 25 mg Tablet Take 0.5 tablets by mouth daily. 45 tablet 3 ??? torsemide (Demadex) 20 mg Tablet Take 1 tablet by mouth 2 times daily. 60 tablet 3 ??? traZODone (Desyrel) 50 mg [...] tablet by mouth daily. 90 tablet 3 Scheduled Meds: ??? aspirin 81 mg Oral Daily ??? atorvastatin 40 mg Oral QPM ??? DULoxetine DR 30 mg Oral Daily ??? gabapentin 200 mg Oral BID ??? piperacillin-tazobactam 3.375 g Intravenous Q8H ??? gabapentin 100 mg Oral Daily at Noon ??? metoprolol tartrate 12.5 mg Oral Q6H BASIL ??? pantoprazole EC 40 mg Oral Daily ??? insulin lispro 1-4 Units Subcutaneous Q4H BASIL ??? sodium chloride 0.9 % (flush) 5 mL Intravenous BID ??? heparin (porcine) 5,000 Units Subcutaneous Q8H BASIL Continuous Infusions: PRN Meds:.gabapentin, HYDROmorphone, traZODone, glucose 40% oral geL OR dextrose 10% OR glucagon, sodium chloride 0.9 % (flush), lidocaine, ondansetron, acetaminophen Allergies: Benzodiazepines, House dust, Hydrocodone-acetaminophen, Metoclopramide, Mold [...] Used ??? Tobacco comment: uses medical marijauna Substance and Sexual Activity ??? Alcohol use: [...] Week: ??? Minutes of Exercise per Session: Stress: ??? Feeling of Stress : Social Connections: ??? Frequency of Communication with Friends and Family: ??? Frequency of Social Gatherings with Friends and Family: ??? Attends Faith Services: ??? Active Member of Clubs or Organizations: ??? Attends Club or Organization Meetings: ??? Marital Status: Intimate Partner Violence: ??? Fear of Current or Ex-Partner: ??? Emotionally Abused: ??? Physically Abused: ??? Sexually Abused: Significant Family History: No family history on file. Pertinent ROS: as per HPI Labs: Lab Results Component Value Date WBC 16.4 (H) 02/20/2021 HCT 25.6 (L) 02/20/2021 PLATELET 393 (H) 02/20/2021 INR 1.3 02/19/2021 BUN 30 (H) 02/20/2021 CREATININE 1.49 (H) 02/20/2021 ALKPHOS 310 (H) 02/19/2021 AST 28 02/19/2021 ALBUMIN 2.9 (L) 02/19/2021 BILIDIR 0.2 02/19/2021 BILITOT 0.4 02/19/2021 ALT 23 02/19/2021 PROT 8.0 02/19/2021 K 4.1 02/20/2021 Imaging: Physical Exam: Pending (to be performed in angio the day of procedure) ASA: Pending (to be assessed in angio the day of procedure) Mallampati Class: Pending (to be assessed in angio the day of procedure) Assessment: 65 y.o. female with multiple bouts of pancreatis with a large pancreatic / peripancreatic collection. Per review of imaging, this appears to be amenable to percutaneous drainage; request is for retroperitoneal approach if possible. Plan: Plan Planned procedure: Pancreatic Collection Drainage Catheter Placement Labs to be performed day of procedure: No labs Sedation: Moderate (Conscious sedation) Prophylactic antibiotic : None Contrast: No contrast Additional medications for procedure: Lidocaine Planned access site: Right Flank Position: Prone Consent: Pending Medications to discontinue (and days held): None Cytopathology presence needed: No Case Urgency:: E- Elective IN-patient intervention within 3 days 02/20/2021 * Mauro Thomas DO - 02/20/2021 8:31 AM EDT Images from the original note were not included. INTERVENTIONAL RADIOLOGY FOCUSED H&P and PRE-PROCEDURE NOTE: PCP: Asia Gil DO Referring Provider: Lisa Hernandez Planned Procedure: Planned procedure: Pancreatic Collection Drainage Catheter Placement Procedure Indication: Pancreatic Collection, Enlarging. Leukocytosis. Fever. Procedure request received through Interventional Radiology eDH order queue. Presenting Diagnosis/ Complaint: Toyin Lion is a 65 y.o. female presenting to IR for drainage catheter placement into sloane-pancreatic collection. Past medical history is significant for SIMMONS cirrhosis (biopsy confirmed 2007), prior cholecystectomy, HTN, HLD, DMII complicated by diabetic neuropathy, GERD, prior TIA, & CKD??III, and prior admissions for post-ERCP pancreatitis and diastolic heart failure, who is transferred from [facility] for evolving sloane-pancreatic fluid collection in the setting of pancreatitis. On imaging, a large pancreatic collection centered in the pancreatic head andextending outward has been increasing in size. The case was reviewed by the Surgical and Gastrointestinal Services and request is for percutaneous drainage catheter placement into the collection. Request is for a retroperitoneal approach for planned future surgical intervention. IR History: None. Antiplatelets: Aspirin 81 mg daily; Plavix 75 mg daily (has been held for 3-days currently). Anticoagulants: None. Recent Laboratories: ??? Platelets: 393 on 02/20/21. ??? INR: 1.3 on 02/19/21. ??? Creatinine: 1.49 on 02/20/21. ??? Lipase: 27 on 02/19/21 ??? Getting Laboratories Before Procedure: None. Allergies: None Pertinent. Past Medical/Surgical History: Patient Active Problem List [...] (arteriosclerotic cardiovascular disease) I25.10 ??? Pancreatitis K85.90 Past Medical History: Diagnosis Date ??? CKD (chronic kidney disease) 04/05/2020 ??? Delirium 04/05/2020 ??? Diabetes mellitus type 2, uncomplicated 05/14/2014 ??? Hx-TIA (transient ischemic attack) 05/14/2014 ??? Hyperlipidemia 05/28/2014 Off statin due to foot pain side effect ??? Hypertension 05/28/2014 ??? Restless legs syndrome (RLS) 04/05/2020 Past Surgical History: Procedure Laterality Date ??? PRO ERCP,DIAGNOSTIC N/A 01/17/2021 ERCP performed by Eliel Leigh MD at [facility] Medications: No current facility-administered medications on file prior to encounter. Current Outpatient Medications on File Prior to Encounter Medication Sig Dispense Refill ??? aspirin 81 mg Tablet, Chewable Take 81 mg by mouth daily. 90 tablet 3 ??? clopidogreL (Plavix) 75 mg Tablet Take 1 tablet by mouth daily. 90 tablet 3 ??? losartan (Cozaar) 25 mg Tablet Take 1 tablet by mouth daily. 90 tablet 3 ??? magnesium oxide (Mag-Ox) 400 mg (241.3 mg magnesium) Tablet Take 1 tablet by mouth 2 times daily. 180 tablet 3 ??? melatonin 3 mg Tablet Take 2 tablets by mouth nightly. 180 tablet 3 ??? spironolactone (Aldactone) 25 mg Tablet Take 0.5 tablets by mouth daily. 45 tablet 3 ??? torsemide (Demadex) 20 mg Tablet Take 1 tablet by mouth 2 times daily. 60 tablet 3 ??? traZODone (Desyrel) 50 mg [...] tablet by mouth daily. 90 tablet 3 Scheduled Meds: ??? aspirin 81 mg Oral Daily ??? atorvastatin 40 mg Oral QPM ??? DULoxetine DR 30 mg Oral Daily ??? gabapentin 200 mg Oral BID ??? piperacillin-tazobactam 3.375 g Intravenous Q8H ??? gabapentin 100 mg Oral Daily at Noon ??? metoprolol tartrate 12.5 mg Oral Q6H BASIL ??? pantoprazole EC 40 mg Oral Daily ??? insulin lispro 1-4 Units Subcutaneous Q4H BASIL ??? sodium chloride 0.9 % (flush) 5 mL Intravenous BID ??? heparin (porcine) 5,000 Units Subcutaneous Q8H BASIL Continuous Infusions: PRN Meds:.gabapentin, HYDROmorphone, traZODone, glucose 40% oral geL OR dextrose 10% OR glucagon, sodium chloride 0.9 % (flush), lidocaine, ondansetron, acetaminophen Allergies: Benzodiazepines, House dust, Hydrocodone-acetaminophen, Metoclopramide, Mold [...] Used ??? Tobacco comment: uses medical marijauna Substance and Sexual Activity ??? Alcohol use: [...] Week: ??? Minutes of Exercise per Session: Stress: ??? Feeling of Stress : Social Connections: ??? Frequency of Communication with Friends and Family: ??? Frequency of Social Gatherings with Friends and Family: ??? Attends Faith Services: ??? Active Member of Clubs or Organizations: ??? Attends Club or Organization Meetings: ??? Marital Status: Intimate Partner Violence: ??? Fear of Current or Ex-Partner: ??? Emotionally Abused: ??? Physically Abused: ??? Sexually Abused: Significant Family History: No family history on file. Pertinent ROS: as per HPI Labs: Lab Results Component Value Date WBC 16.4 (H) 02/20/2021 HCT 25.6 (L) 02/20/2021 PLATELET 393 (H) 02/20/2021 INR 1.3 02/19/2021 BUN 30 (H) 02/20/2021 CREATININE 1.49 (H) 02/20/2021 ALKPHOS 310 (H) 02/19/2021 AST 28 02/19/2021 ALBUMIN 2.9 (L) 02/19/2021 BILIDIR 0.2 02/19/2021 BILITOT 0.4 02/19/2021 ALT 23 02/19/2021 PROT 8.0 02/19/2021 K 4.1 02/20/2021 Imaging: Physical Exam: Pending (to be performed in angio the day of procedure) ASA: Pending (to be assessed in angio the day of procedure) Mallampati Class: Pending (to be assessed in angio the day of procedure) Assessment: 65 y.o. female with multiple bouts of pancreatis with a large pancreatic / peripancreatic collection. Per review of imaging, this appears to be amenable to percutaneous drainage; request is for retroperitoneal approach if possible. Plan: Plan Planned procedure: Pancreatic Collection Drainage Catheter Placement Labs to be performed day of procedure: No labs Sedation: Moderate (Conscious sedation) Prophylactic antibiotic : None Contrast: No contrast Additional medications for procedure: Lidocaine Planned access site: Right Flank Position: Prone Consent: Pending Medications to discontinue (and days held): None Cytopathology presence needed: No Case Urgency:: E- Elective IN-patient intervention within 3 days 02/20/2021 * Wan Trinidad MD - 02/19/2021 8:59 PM EDT Admission History & Physical Internal Medicine ID: 65 year-old female with a medical history of SIMMONS cirrhosis (biopsy confirmed 2007), prior lap-ronnie, HTN, HLD, DMII c/b diabetic neuropathy, GERD, prior TIA, & CKD??III/A2-3, and prior admissions for post-ERCP pancreatitis and diastolic heart failure, who is transferred from [facility] for evolving sloane-pancreatic fluid collection. History of Present Illness: Patient initially admitted from 01/17 - for post-ERCP pancreatitis with retained stone in the cystic duct. She was readmitted from 01/28- with a loculated thick walled peripancreatic fluid collection. She subsequently represented to [facility] where she was found to have a ~40 lb weight gain and fluid o verload. She was transported back to [facility] for IV diuresis. She was re-admitted from 02/04 to 02/13 forheart failure. During this admission she underwent LHC which showed 3v CAD; she was felt to be high-risk surgical candidate for CABG so plan was made for outpatient staged PCI. She re-presented to [facility] on 02/18/21 with acute onset right upper quadrant sharp, constant pain withassociated nausea but no vomiting, after eating half a sandwich. Labs at OSH notable for WBC 20, Cr1.9 (baseline 1.4), AST 41, ALT 38, TB 0.4. Troponin negative. ProBNP 2600. Lipase normal at 190. CT A/P revealed mild increase in the size of the fluid collection between the pancreatic head and right hepatic lobe, with increased density of the fluid. On my evaluation the patient endorses right upper abdominal pain that she rates as 7/10 and dull. She has nausea but no vomiting. She feels hungry and endorses a headache. She does not have a dyspneabut reports it is difficult to take a deep breath in because of pain. She denies diarrhea, constipation, hematochezia, and melena. Her weight was 161 lb at home, reported dry weight on prior admissions is ~170 lb. She eats a low salt diet and denies any URIs in the past month. Past Medical History: . Patient Active Problem List Diagnosis ??? Pancreatitis ??? Acute exacerbation of congestive heart failure ??? HFrEF (heart failure with reduced ejection fraction) ??? ASCVD (arteriosclerotic cardiovascular disease) Overview Note: Added automatically from request for surgery [id number] ??? Pancreatic pseudocyst ??? PONV (postoperative nausea and vomiting) ??? Cystic duct calculus ??? RUQ pain Overview Note: Added automatically from request for surgery [id number] ??? Anxiety ??? Diabetic neuropathy ??? Nonalcoholic steatohepatitis ??? Restless legs syndrome (RLS) ??? CKD (chronic kidney disease) ??? Delirium ??? Hyperlipidemia Overview Note: Off statin due to foot pain side effect ??? Hypertension ??? Diabetes mellitus type 2, uncomplicated ??? Hx-TIA (transient ischemic attack) ??? GERD (gastroesophageal reflux disease) Overview Note: ??? Environmental allergies Overview Note: Display name was automatically updated by a utility run on 01/13/2012 Allergies: Allergies Allergen Reactions ??? Benzodiazepines Other (See Comments) Paradoxical reaction to benzodiazepines ??? House Dust ??? Hydrocodone-Acetaminophen Itching ??? Metoclopramide ??? Mold Extracts ??? Pollen Extracts ??? Propoxyphene Hcl Nausea And Vomiting ??? Unknown [Unclassified Drug] Most environmental allergies: grass, wormkan, trees,pollen Current Medications: Current Facility-Administered Medications: ??? [START ON 02/20/2021] aspirin chewable tablet 81 mg, 81 mg, Oral, Daily, Wan Trinidad MD ??? [START ON 02/20/2021] atorvastatin (Lipitor) tablet 40 mg, 40 mg, Oral, QPM, Wan Trinidad MD ??? [START ON 02/20/2021] DULoxetine DR (Cymbalta) capsule 30 mg, 30 mg, Oral, Daily, Wan Trinidad MD ??? gabapentin (Neurontin) capsule 200 mg, 200 mg, Oral, BID, Wan Trinidad MD ??? gabapentin (Neurontin) capsule 200 mg, 200 mg, Oral, Nightly PRN, Wan Trinidad MD ??? piperacillin-tazobactam (Zosyn) 3.375 g vial attach to sodium chloride 0.9% 50 mL Mini-Bag Plus, 3.375 g, Intravenous, Q8H, Wan Trinidad MD ??? [START ON 02/20/2021] gabapentin (Neurontin) capsule 100 mg, 100 mg, Oral, Daily at Noon, Wan Trinidad MD ??? [START ON 02/20/2021] metoprolol tartrate (Lopressor) tablet 12.5 mg, 12.5 mg, Oral, Q6H BASIL, Wan Trinidad MD ??? HYDROmorphone (Dilaudid) (1 mg/mL) injection syringe 0.4 mg, 0.4 mg, Intravenous, Q2H PRN, Wan Trinidad MD ??? [START ON 02/20/2021] pantoprazole EC (Protonix) tablet 40 mg, 40 mg, Oral, Daily, Wan Trinidad MD ??? traZODone (Desyrel) tablet 25 mg, 25 mg, Oral, Nightly PRN, Wan Trinidad MD ??? glucose (GLUTOSE) 40% oral geL, 15-30 g, Buccal, Q30 Min PRN OR dextrose 10% infusion, 250 mL, Intravenous, Q30 Min PRN OR glucagon (Glucagen) (1 mg/mL) injection solution 1 mg, 1 mg, Intramuscular, Q30 Min PRN, Wan Trinidad MD ??? POCT Fingerstick Glucose, , , Q4H AND insulin lispro (HumaLOG;Admelog) (100 unit/mL) subcutaneous injection vial 1-4 Units, 1-4 Units, Subcutaneous, Q4H BASIL, Wan Trinidad MD ??? sodium chloride 0.9 % (flush) flush 5 mL, 5 mL, Intravenous, BID, Wan Trinidad MD ??? sodium chloride 0.9 % (flush) flush 5-20 mL, 5-20 mL, Intravenous, Q1 Min PRN, Wan Trinidad MD ??? lidocaine (Xylocaine) 1% (10 mg/mL) injection 3 mg, 0.3 mL, Subcutaneous, Once PRN, Wan Trinidad MD ??? ondansetron (pf) (Zofran) (2 mg/mL) injection 4 mg, 4 mg, Intravenous, Q8H PRN, Wan Trinidad MD ??? heparin (porcine) (5,000 units/1 mL) subcutaneous injection 5,000 Units, 5,000 Units, Subcutaneous, Q8H BASIL, Wan Trinidad MD ??? sodium chloride 0.9% infusion, 80 mL/hr, Intravenous, Continuous, Kareem Wilkes MD Family History: Non-contributory Social History: Smoking: Denies EtOH: Denies Drug use: Medical marijuana Review of Systems: GENERAL HEENT CV PULM All negative All negative x All negative All negative x Weight loss x Headache Chest Pain Non-productive cough Weight gain Vision change Palpitations Productive cough Fevers Sinus congestion Orthopnea Wheezing Chills Hoarseness PND Hemoptysis Night sweats Epistaxis LE edema Pleuritic pain Fatigue Syncope SOB Claudication [facility] GI x All negative x All negative All negative All negative Arthralgias Frequency Heat intolerance Blood in stool Myalgias Urgency Cold intolerance Dysphagia Weakness Dysuria Polydipsia Odynophagia Stiffness Flank pain Polyphagia x Abdominal discomfort Hematuria Constipation Foamy urine Diarrhea Discharge x Nausea/Vomiting LYMPH SKIN NEURO PSYCH x All negative x All negative x All negative All negative Swollen nodes Rash Dizziness Depressed mood Tender nodes Ulcers Tremors Occupational stress Diffuse nodes Bruising Paresthesias Anxiety Local nodes Tanned skin Focal weakness Insomnia Night sweats Telangiectasias Diplopia Objective: Vital Signs: Last value Range last 24 hrs Temperature Temp: 37.2 ??C (99 ??F) Temp: [37 ??C (98.6 ??F)-37.2 ??C (99 ??F)] Heart Rate Heart Rate: 95 Heart Rate: [95] Blood Pressure BP: 130/64 BP: (105-130)/(53-64) Respiratory Rate Resp: 16 Resp: [16] SpO2 SpO2: 94 % SpO2: [94 %] Physical Exam: General: in no distress HEENT: NC / AT, PERRL, Moist oropharynx, no palatal erythema or exudate Heart: RR, S1 and S2 auscultated, No M/R/G appreciated. No JVD. Lungs: Clear to auscultation Abdomen: Diffusely tender in right upper quadrant and mid-epigastric. No rebound or guarding. Non-distended. Soft. +BS. Extremities: Warm, no edema, pulses intact bilaterally in upper / lower extremities. Neuro: CN intact to observation, No dysphasia, focal weakness, or sensory deficit. Skin: No rashes or petechiae observed on exposed skin surfaces. Laboratory Studies: WBC 15.9, Hgb 7.4, Plt 343 Na 134, K 4.3, Cl 97, CO2 27 ,BUN 31, Cr 1.44, Mg 0.87, Ph 4.1 Lipase 27 LFTs: Alb 2.9, ALP 310 Trop<0.01 Pro-BNP: 1714 Microbiology: Blood cultures: pending Diagnostic Studies: EKG: sinus, anterolateral TWI Consults: Surgery Interventional Radiology Assessment: 65 year-old female with a medical history of SIMMONS cirrhosis (biopsy confirmed 2007), prior lap-ronnie, HTN, HLD, DMII c/b diabetic neuropathy, GERD, prior TIA, & CKD??III/A2-3, and prior admissions for post-ERCP pancreatitis and diastolic heart failure, who is transferred from [facility] for evolving sloane-pancreatic fluid collection. She is clinically euvolemic on exam. She reports persistent abdominal pain although lipase is normal. Will encourage clears tonight with NPO at midnight. I discussed the case with IR, will plan for drainage tomorrow, although patient recently took plavix two days ago which may delay procedure, willdefer decision to procedural team. Persistent leukocytosis is likely related to chronic inflammation, although abscess can not be ruled out, will continue antibiotics for now. Plan: # Post-ERCP Pancreatitis c/b sloane-pancreatic fluid collection - IR consultation for drainage - surgery consulted - continue zosyn for now - dilaudid prn - clear liquid diet, then NPO at midnight - hold IV fluids ?? # Chronic HFrEF # 3v ASCVD - estimated dry weight ~170 lb - X-ray 2 view - aspirin, atorvastatin - hold plavix - metoprolol tartrate 12.5 q6h - hold losartan, aldactone, torsemide in setting of GETACHEW - daily weights - strict I/Os # GETACHEW - baseline creatinine fluctuates, but most recently ~1.1 - daily bmp - avoid nephrotoxic agents - hold diuretic and ARB as above # T2DM - SSI ?? # Leukocytosis - no fever, likely related to inflammation, will continue antibiotics for now - blood and urine cultures ?? #Home Meds - duloxetine 30mg daily - gabapentin apentin 200 mg BID, 100 mg at noon ?? #Housekeeping: - DVT PPx:??SQH - GI PPx:??pantoprazole - Diet:??clears - Level of care:??floor - Vitals:??q4 Wan Trinidad MD Internal Medicine Pager [phone] 02/19/21 Associated attestation - Wei Rodriguez MD - 02/20/2021 5:30 PM EDT Attending Staff Admission Documentation I have examined the patient myself on 02/20/2021 and reviewed all labs and studies personally. Please see Dr. Blas 's documentation for details of the patient history of presentation and data. I have discussed, reviewed and agree with the documented history with ROS, physical findings, labs/studies, assessment and plan of care. documented in this encounter Miscellaneous Notes * Consult Note - Theodore Canseco MD - 02/21/2021 7:18 AM EDT [facility] Department of General Surgery Consult Note Consultation Requested by: Wei Rodriguez MD [facility] Toyin Lion is a 65 y.o. female with a history of biopsy-proven SIMMONS cirrhosis, hypertension, hyperlipidemia, type 2 diabetes mellitus, GERD, history of TIA, CKD stage IIIb and status post cholecystectomy and 2016 at [facility], who underwent an ERCP with cholangioscopy for unsuccessful removal of the retained stones in the cystic duct remnant and possibly a GB infundibulum on 01/17/21 complicated bypost ERCP pancreatitis. She was discharged on 01/27 from [facility] but returned to [facility] on 01/29 with persistent abdominal pain, and volume overload, and transferred back to [facility] with evidence of an acute necrotic collection not yet walled off, and a HIDA scan/MRCP revealing no evidence of bile leak and discharged on 02/03 when her abdominal pain was stable. On 02/04, She presents to [facility] with fluid overload and in acute diastolic heart failure and a repeatCT revealed known persistent sloane-pancreatic fluid collections not yet walled off. She was admittedfor for continued supportive care. Today, she presents to [facility] with worsening abdominal pain with repeat CT revealing stable sloane-pancreatic collection 9x7cm with two smaller adjacent collections andpossible hemorrhagic conversion. She remained HDS, with lab work up notable for leukocytosis, Tbil 0.6, deranged LFTs, lipase 190. General surgery is consulted for evaluation of sloane-pancreatic collections for possible surgical intervention. Subjective/24hours - Pain improved after drain - thick serosanguinous fluid in drain. Nothing seen on gram stain. Physical Exam: Temp: [36.5 ??C (97.7 ??F)-37.1 ??C (98.7 ??F)] Heart Rate: [80-91] Resp: [13-17] BP: (108-137)/(37-84) SpO2: [95 %-99 %] Heart Rate from SpO2: [74 bpm-91 bpm] General: alert, no acute distress, sleepy Cardiac: Regular rate per monitor Pulmonary: clear to auscultation bilaterally, no increased work of breathing on RA Abdominal: soft, minimally tender in the RUQ, non peritoneal, non distended. Drain in place with serosanguinous output. Neuro: grossly intact, follows commands, AAO x3. Extremities: Warm and well-perfused Labs: Recent Labs 02/21/21 0309 02/20/21 0403 02/19/21 2105 WBC 15.6* 16.4* 15.9* HGB 7.0* 8.0* 7.4* HCT 22.0* 25.6* 23.6* PLATELET 328 393* 343 Recent Labs 02/21/21 0309 02/20/21 0403 02/19/21 2105 NA 133* 136 134* K 4.1 4.1 4.3 CL 97* 98 97* CO2 27 31 27 BUN 30* 30* 31* CREATININE 1.28* 1.49* 1.44* Recent Labs 02/19/21 2105 02/08/21 0405 02/04/210 01/28/211954 AST 28 47* 34* 66* ALT 23 23 26 43* ALKPHOS 310* 313* 222* 269* BILITOT 0.4 0.4 0.6 1.0 BILIDIR 0.2 0.2 -- 0.6* Recent Labs 02/21/21 0309 02/19/212104 CALCIUM 8.8 9.4 9.4 PHOS -- 4.1 Recent Labs 02/19/212104 PT 15.1* INR 1.3 PTT 33 Recent Labs 02/20/21 1009 02/20/2140202/19/212104 TROPONINT <0.01 <0.01 <0.01 PROBNP -- -- 1,714* Imaging: CT Abdomen/Pelvis from OSH reviewed. Impression: Toyin Lion is a 65 y.o. female with a history of biopsy-proven SIMMONS cirrhosis, hypertension, hyperlipidemia, type 2 diabetes mellitus, GERD, history of TIA, CKD stage IIIb, and chronic HFrEF andstatus post cholecystectomy and 2016 at [facility], who underwent an ERCP with cholangioscopy for unsuccessful removal of the retained stones in the cystic duct remnant and possibly a GB infundibulum on 01/17/21 complicated by post ERCP pancreatitis. Her clinical course has been complicated by several re-admissions to [facility] and [facility] for recurrent persistent abdominal pain associated with nausea and vomiting. Presentation is most consistent either a walled off necrosis vs infected hematoma vs walled off abscess however cannot rule out communicating fistula. Now s/p IR drainage. If her symptoms and clinical status improves, she would be okay for DC from general surgery standpoint with follow up in 1 week as an outpatient basis. At that time she will needa CT scan with PO/IV contrast to be performed. Until that time she should empty, record output, andflush her drain daily. There is a potential that her fluid collection will require more than a percutaneous approach for adequate drainage and source control, such as a video assisted retroperitonealdissection using her drain that is in place. Theodore Canseco MD General Surgery Consult Pager [phone] Associated attestation - Yves Holt MD - 02/21/2021 12:16 PM EDT This patient was personally seen and examined on team rounds. I agree with the assessment and plan as discussed. Diagnoses and therapy were explained and all questions were answered. Periduodenal/pancreatic head collection - Sequelae of pancreatitis vs type 2/3 ERCP injury. Percutaneous drain placed 02/20. Will arrange CT abd/pelvis CT with PO & IV contrast next week. Depending on response to drainage, she may benefit from a step up to surgical drainage (VARD vs peritoneal approach). Remnant gallbladder - Will plan for completion cholecystectomy but the above should be addressed & resolved first in order to lower M&M risks. If operative management becomes necessary for the above, gallbladder would likely be removed at that time (depending on approach). Needs drain teaching Surgical follow up with CT next week (will arrange) IR follow up per IR, will coordinate their visits with ours Discussed with Dr Rodriguez and medical team Thank you for allowing us to participate in the care of your patient. Please feel free to call withany questions or concerns. Yves Holt MD 02/21/2021 12:14 PM * Plan of Care - Eloisa Garcia RN - 02/21/2021 4:45 AM EDT OUTCOME EVALUATION NOTE: OUTCOME SUMMARY: PT able to sleep the majority of the night. PT here for recurrent pancreatitis s/p sloane pancreatic drain placed. Drain is draining serosanguineous fluid. PT A&Ox4, calm & cooperative w/care. Rating 8/10 pain at drain site. IV dilaudidx2 given w/+effect, PT also using ice to help. VSS on RA.Voiding w/o difficulty, last BM 02/17, pt would like miralax w/ breakfast. PT did c/o of some nausea, zofran given w/ +effect. Skin intact besides some bruising on abd & drain. Will continue to monitor. HGB drop from 8-7& Sodium 136-133, MD aware. PLAN MOVING FORWARD: -Monitor VS & labs -Daily weight -Q4hour FS -Q8hour flushes to CHANCE drain next flush due @ 12PM -Pain control INDIVIDUALIZED FALL PREVENTION INTERVENTIONS: Patient-specific fall risk factors per assessment: [current deficits]: Med d/t generalized weakness, drain Assistance [level of assistance required for transfers and ambulation]: SBA Supervision [direct monitoring required during toileting and ADLs]: Eyes on Surveillance [continuous indirect monitoring]: Masimo, hourly rounding, bed alarm on, call cunningham in reach Patient-specific fall prevention interventions for sensory deficits provided, if applicable: N/A CPG GOAL OUTCOME EVALUATION: * Initial Assessments - Zohra Weaver RN - 02/20/2021 8:11 PM EDTSumoriana: MARYSOL Initial Assessment Office of Care Management Assessment Medical record reviewed. Plan of care and patient status discussed with direct care RN and/or Care Team in multidisciplinary rounds. Screening: Per patient, abscess in pancreas. Per MD Wan Trinidad, 02/20/2128:59pm/ 65 year old female with a medical history of SIMMONS cirrhosis (biopsy confirmed 2007), prior lap-ronnie, HTN, HLD, DMII c/b diabetic neuropathy, GERD, prior TIA, & CKD??III/A2-3, and prior admissions for post-ERCP pancreatitis and diastolic heart failure, who is transferred from [facility] for evolving sloane-pancreatic fluid collection. ?? She is clinically euvolemic on exam. She reports persistent abdominal pain although lipase is normal. Will encourage clears tonight with NPO at midnight. I discussed the case with IR, will plan for drainage tomorrow, although patient recently took plavix two days ago which may delay procedure, willdefer decision to procedural team. Persistent leukocytosis is likely related to chronic inflammation, although abscess can not be ruled out, will continue antibiotics for now. Last COVID test: Per [facility] admission criteria, completed 02/19/21 - results negative. Lab Results Component Value Date [id number] Not Detected 02/19/2021 Present on Admission: ??? Pancreatitis Patient, Toyin Lion, has been admitted to a hospital within the last 30 days. Information known about that admission: 02/04/21 with Hospital Medicine for acute biliary pancreatitis. Patient receiving hospital care under Inpatient status. Admission order reviewed. Primary Insurance on file: [employer] MANAGED MEDICARE Secondary Insurance on file: None indicated Primary care provider on file: Asia GilDO [phone] Advance Directive on file and Code Status: <no information>, Attempt Cardiopulmonary Resuscitation - Inpatient Patient???s Functional Status: Stand by assist Living Situation: Lives at below address without needs. [address] [facility] [id number] Supports: 1) Child, Linda Bacon; [phone] 2) Child, Silvana Lion, Assessment: Patient with no apparent RNCM/SW needs at this time. No housing, transportation, insurance, resources concerns identified at this time. Supports in place to achieve a safe post-hospital transition. No identified barriers to accessing necessary care and/or follow-up after discharge. Plan: Patient to d/c to home via family when medically ready. special delivery worker/Area Loss Prevention Manager will continue to follow patient???s progress and remain available if situation changes for coordination of care, psychosocial support and/or discharge planning. Office of Care Management CM: Mary Weaver RNCM Pager: [phone] * Plan of Care - Veronika Sifuentes RN - 02/20/2021 7:52 PM EDT OUTCOME EVALUATION NOTE: OUTCOME SUMMARY: VS stable, pt very pleasant, alert and oriented x4, complains of RUQ pain throughout shift, IV dilaudid given with adequate relief. Pain increased after returning to unit with pancreatic drain. Pt has been ambulating around unit, tolerating activity well. PLAN MOVING FORWARD: ?? Monitor VS, BG, labs. Continue to monitor pain levels, medication effectiveness, pancreatic drain output. ?? INDIVIDUALIZED FALL PREVENTION INTERVENTIONS: ?? Patient-specific fall risk factors per assessment: [current deficits]: Generalized weakness, IV access, hospital environment ?? Assistance [level of assistance required for transfers and ambulation]: SBA ?? Supervision [direct monitoring required during toileting and ADLs]: Eyes on ?? Surveillance [continuous indirect monitoring]: larry Carlos alarm, call cunningham in reach, room near nursing station, purposeful rounding ?? Patient-specific fall prevention interventions for sensory deficits provided, if applicable: [X] N/A * Consult Note - Theodore Canseco MD - 02/20/2021 1:44 PM EDT [facility] Department of General Surgery Consult Note Consultation Requested by: Wei Rodriguez MD [facility] Toyin Lion is a 65 y.o. female with a history of biopsy-proven SIMMONS cirrhosis, hypertension, hyperlipidemia, type 2 diabetes mellitus, GERD, history of TIA, CKD stage IIIb and status post cholecystectomy and 2016 at [facility], who underwent an ERCP with cholangioscopy for unsuccessful removal of the retained stones in the cystic duct remnant and possibly a GB infundibulum on 01/17/21 complicated bypost ERCP pancreatitis. She was discharged on 01/27 from [facility] but returned to [facility] on 01/29 with persistent abdominal pain, and volume overload, and transferred back to [facility] with evidence of an acute necrotic collection not yet walled off, and a HIDA scan/MRCP revealing no evidence of bile leak and discharged on 02/03 when her abdominal pain was stable. On 02/04, She presents to [facility] with fluid overload and in acute diastolic heart failure and a repeatCT revealed known persistent sloane-pancreatic fluid collections not yet walled off. She was admittedfor for continued supportive care. Today, she presents to [facility] with worsening abdominal pain with repeat CT revealing stable sloane-pancreatic collection 9x7cm with two smaller adjacent collections andpossible hemorrhagic conversion. She remained HDS, with lab work up notable for leukocytosis, Tbil 0.6, deranged LFTs, lipase 190. General surgery is consulted for evaluation of sloane-pancreatic collections for possible surgical intervention. Subjective/24hours - Pain improved with pain medication - afebrile. Past Medical History: Past Medical History: Diagnosis Date ??? CKD (chronic kidney disease) 04/05/2020 ??? Delirium 04/05/2020 ??? Diabetes mellitus type 2, uncomplicated 05/14/2014 ??? Hx-TIA (transient ischemic attack) 05/14/2014 ??? Hyperlipidemia 05/28/2014 Off statin due to foot pain side effect ??? Hypertension 05/28/2014 ??? Restless legs syndrome (RLS) 04/05/2020 Past Surgical History Past Surgical History: Procedure Laterality Date ??? CT GUIDED DRAIN PANCREATIC/PERIPANCREATIC 02/20/2021 CT Guided Drain Pancreatic/Peripancreatic 02/20/2021 Mauro Thomas, DO [facility] RAD CAT SCAN ??? PRO ERCP,DIAGNOSTIC N/A 01/17/2021 ERCP performed by Eliel Leigh MD at [facility] ENDOSCOPY Medications No current facility-administered medications on file prior to encounter. Current Outpatient Medications on File Prior to Encounter Medication Sig Dispense Refill ??? aspirin 81 mg Tablet, Chewable Take 81 mg by mouth daily. 90 tablet 3 ??? clopidogreL (Plavix) 75 mg Tablet Take 1 tablet by mouth daily. 90 tablet 3 ??? losartan (Cozaar) 25 mg Tablet Take 1 tablet by mouth daily. 90 tablet 3 ??? magnesium oxide (Mag-Ox) 400 mg (241.3 mg magnesium) Tablet Take 1 tablet by mouth 2 times daily. 180 tablet 3 ??? melatonin 3 mg Tablet Take 2 tablets by mouth nightly. 180 tablet 3 ??? spironolactone (Aldactone) 25 mg Tablet Take 0.5 tablets by mouth daily. 45 tablet 3 ??? torsemide (Demadex) 20 mg Tablet Take 1 tablet by mouth 2 times daily. 60 tablet 3 ??? traZODone (Desyrel) 50 mg [...] by mouth daily. 90 tablet 3 Allergies Allergies Allergen Reactions ??? Benzodiazepines Other (See Comments) Paradoxical reaction to benzodiazepines ??? House Dust ??? Hydrocodone-Acetaminophen Itching ??? Metoclopramide ??? Mold Extracts ??? Pollen Extracts ??? Propoxyphene Hcl Nausea And Vomiting ??? Unknown [Unclassified Drug] Most environmental allergies: grass, workman, trees,pollen Family History: No family history on file. Social History: Social History Socioeconomic History ??? Marital status: Spouse name: Not on file ??? Number of children: Not on file ??? Years of education: Not on file ??? Highest education level: Not on file Occupational History ??? Not on file Tobacco Use ??? Smoking status: Never Smoker ??? Smokeless tobacco: Never Used ??? Tobacco comment: uses medical marijauna Substance and Sexual Activity ??? Alcohol use: [...] Week: ??? Minutes of Exercise per Session: Stress: ??? Feeling of Stress : Social Connections: ??? Frequency of Communication with Friends and Family: ??? Frequency of Social Gatherings with Friends and Family: ??? Attends Faith Services: ??? Active Member of Clubs or Organizations: ??? Attends Club or Organization Meetings: ??? Marital Status: Intimate Partner Violence: ??? Fear of Current or Ex-Partner: ??? Emotionally Abused: ??? Physically Abused: ??? Sexually Abused: Review of Systems: As stated above, otherwise negative Physical Exam: Temp: [36.5 ??C (97.7 ??F)-37.2 ??C (99 ??F)] Heart Rate: [85-95] Resp: [13-17] BP: (105-141)/(37-84) SpO2: [94 %-99 %] Heart Rate from SpO2: [74 bpm-95 bpm] General: alert, no acute distress, sleepy Cardiac: Regular rate per monitor Pulmonary: clear to auscultation bilaterally, no increased work of breathing on RA Abdominal: soft, minimally tender in the RUQ, non peritoneal, non distended Neuro: grossly intact, follows commands, AAO x3. Extremities: Warm and well-perfused Labs: Recent Labs 02/20/2140202/19/21210402/13/215 WBC 16.4* 15.9* 11.6* HGB 8.0* 7.4* 7.3* HCT 25.6* 23.6* 22.8* PLATELET 393* 343 288 Recent Labs 02/20/2140202/19/21210402/13/21 0445 NA 136 134* 131* K 4.1 4.3 4.0 CL 98 97* 91* CO2 31 27 35* BUN 30* 31* 22* CREATININE 1.49* 1.44* 1.10 Recent Labs 02/19/21210402/08/2140402/04/21219901/28/211954 AST 28 47* 34* 66* ALT 23 23 26 43* ALKPHOS 310* 313* 222* 269* BILITOT 0.4 0.4 0.6 1.0 BILIDIR 0.2 0.2 -- 0.6* Recent Labs 02/20/21 0403 02/19/21 2105 CALCIUM 9.7 9.4 9.4 PHOS -- 4.1 Recent Labs 02/19/21 2105 PT 15.1* INR 1.3 PTT 33 Recent Labs 02/20/21 1009 02/20/21 0403 02/19/21 2105 TROPONINT <0.01 <0.01 <0.01 PROBNP -- -- 1,714* Imaging: CT Abdomen/Pelvis from OSH reviewed. Impression: Toyin Lion is a 65 y.o. female with a history of biopsy-proven SIMMONS cirrhosis, hypertension, hyperlipidemia, type 2 diabetes mellitus, GERD, history of TIA, CKD stage IIIb, and chronic HFrEF andstatus post cholecystectomy and 2016 at [facility], who underwent an ERCP with cholangioscopy for unsuccessful removal of the retained stones in the cystic duct remnant and possibly a GB infundibulum on 01/17/21 complicated by post ERCP pancreatitis. Her clinical course has been complicated by several re-admissions to [facility] and [facility] for recurrent persistent abdominal pain associated with nausea and vomiting. Presentation is most consistent either a walled off necrosis vs infected hematoma vs walled off abscess however cannot rule out communicating fistula. Percutaneous drainage may be complicated by a persistent pancreatic cutaneous fistula. - Recent MRCP did not demonstrate fistulous connection, therefore will most likely recommend IR guided drainage with a step up approach. Would recommend a retroperitoneal approach if possible. - Antibiotic therapy is reasonable given leukocytosis and possibility of an infected collection. Considering normal lipase, unlikely that this presentation is an acute pancreatitis picture. General Surgery will continue to follow. Theodore Cansceo MD General Surgery Consult Pager [phone] Associated attestation - Yves Holt MD - 02/21/2021 8:22 AM EDT This patient was personally seen and examined on team rounds. I agree with the assessment and plan as discussed. Diagnoses and therapy were explained and all questions were answered. CT past & current & ERCP images reviewed Periduodenal/pancreatic head collection - Sequelae of pancreatitis vs type 2/3 ERCP injury. Recommend percutaneous drainage. Will assess fluid and future contrast imaging to clarify further. Depending on response, could benefit from a step up to surgical drainage (VARD vs peritoneal approach). Remnant gallbladder - Will plan for completion cholecystectomy but the above should be addressed & resolved first in order to lower M&M risks. If operative management becomes necessary for the above, gallbladder would likely be removed at that time (depending on approach). Thank you for allowing us to participate in the care of your patient. Please feel free to call withany questions or concerns. Yves Holt MD 02/21/2021 8:11 AM * Consult Note - Johnny Mai - 02/20/2021 6:30 AM EDT GASTROENTEROLOGY & HEPATOLOGY CONSULTATION Initial Consult Note Requesting Provider: Wei Rodriguez MD REASON FOR CONSULTATION Post ERCP pancreatitis HISTORY OF PRESENT ILLNESS Toyin Lion is a 65 y.o. hx SIMMONS cirrhosis (bx-confirmed 08/2008),??hx lap ronnie,??HTN, HLD, DM2, GERD, hx TIA, CKD??who underwent ERCP w/ cholangioscopy and EHL (01/17/21) for unsuccessful removal/ obliteration of a retained stone in a cystic duct remnant v GB infundibulum in setting of chronicRUQ pain. She was referred for completion cholecystectomy given unsuccessful endoscopic approach. She was then admitted post-procedure w/ pancreatitis for which she received IVF resuscitation. Patient elected to be discharged on 01/27. She returned to [facility] on 01/29 volume overloaded (15 lbs over dry weight) with persistent abdominal pain and distension. She was transferred back to [facility]. She had a worsening leukocytosis (WBC 20) for which she underwent non-contrast CT (01/29) noting a 5.5 x 5.5 x 4.1cm peripancreatic fluid collection. This was followed by a HIDA scan (01/29) without evidence of bile leak and MRCP (01/29) with similar findings to the CT, although no necrosis seen. She was seen by surgery during that stay with plans for completion surgery deferred until patient's pancreatitis andfluid collections improved / resolved. She was then discharged on 02/03. She re- represented to [facility] 02/04 fluid overloaded in ADHF. Abdominal pain stable at that time. CT at that time (02/04) notable for persistent peripancreatic fluid collection, now 11cm in largest dimension. Patient was diuresed and continued on supportive care. She now presents to [facility] on 02/18 with worsening abdominal pain. She has remained afebrile, HDS. Labs notable for WBC 20, TB 0.6, AP 292, AST/ALT in 20-30 range, lipase 190 (wnl for reference lab). She underwent another CT A/P (02/18) again demonstrating patient's knowncollection, now measuring 9x7cm with two smaller collections adjacent, increase in Hounsfield unitsc/f possible hemorrhage v bile leak. Patient is currently on empiric. Imipenem. [facility] was [facility] for further management. ROS: 10 systems reviewed and positive for those in HPI, otherwise negative PAST MEDICAL/SURGICAL HISTORY: Past Medical History: Diagnosis Date ??? CKD (chronic kidney disease) 04/05/2020 ??? Delirium 04/05/2020 ??? Diabetes mellitus type 2, uncomplicated 05/14/2014 ??? Hx-TIA (transient ischemic attack) 05/14/2014 ??? Hyperlipidemia 05/28/2014 Off statin due to foot pain side effect ??? Hypertension 05/28/2014 ??? Restless legs syndrome (RLS) 04/05/2020 MEDICATIONS ??? sodium chloride 0.9 % (flush) 5 mL Intravenous BID ??? aspirin 81 mg Oral Daily ??? atorvastatin 40 mg Oral QPM ??? DULoxetine DR 30 mg Oral Daily ??? gabapentin 200 mg Oral BID ??? piperacillin-tazobactam 3.375 g Intravenous Q8H ??? gabapentin 100 mg Oral Daily at Noon ??? metoprolol tartrate 12.5 mg Oral Q6H BASIL ??? pantoprazole EC 40 mg Oral Daily ??? insulin lispro 1-4 Units Subcutaneous Q4H BASIL ??? sodium chloride 0.9 % (flush) 5 mL Intravenous BID ??? heparin (porcine) 5,000 Units Subcutaneous Q8H BASIL sodium chloride 0.9 % (flush), lidocaine, gabapentin, HYDROmorphone, traZODone, glucose 40% oral geL OR dextrose 10% OR glucagon, sodium chloride 0.9 % (flush), lidocaine, ondansetron, acetaminophen ALLERGIES Allergies Allergen Reactions ??? Benzodiazepines Other (See Comments) Paradoxical reaction to benzodiazepines ??? House Dust ??? Hydrocodone-Acetaminophen Itching ??? Metoclopramide ??? Mold Extracts ??? Pollen Extracts ??? Propoxyphene Hcl Nausea And Vomiting ??? Unknown [Unclassified Drug] Most environmental allergies: grass, workman, trees,pollen SOCIAL HISTORY Social History Socioeconomic History ??? Marital status: Spouse name: Not on file ??? Number of children: Not on file ??? Years of education: Not on file ??? Highest education level: Not on file Occupational History ??? Not on file Tobacco Use ??? Smoking status: Never Smoker ??? Smokeless tobacco: Never Used ??? Tobacco comment: uses medical marijauna Substance and Sexual Activity ??? Alcohol use: [...] Week: ??? Minutes of Exercise per Session: Stress: ??? Feeling of Stress : Social Connections: ??? Frequency of Communication with Friends and Family: ??? Frequency of Social Gatherings with Friends and Family: ??? Attends Faith Services: ??? Active Member of Clubs or Organizations: ??? Attends Club or Organization Meetings: ??? Marital Status: Intimate Partner Violence: ??? Fear of Current or Ex-Partner: ??? Emotionally Abused: ??? Physically Abused: ??? Sexually Abused: FAMILY HISTORY No family history on file. Vitals: 02/20/21 1215 02/20/21 1241 02/20/21 1245 02/20/21 1313 BP: 136/54 123/40 (!) 108/37 131/84 BP Location (NBP): Right arm Patient Position: Sitting Pulse: 91 Resp: 13 14 14 16 Temp: 37.1 ??C (98.7 ??F) 36.8 ??C (98.2 ??F) TempSrc: Temporal Oral SpO2: 99% 95% 95% 97% Weight: Height: PHYSICAL EXAM GENERAL: No acute distress, alert and oriented HEENT: AT/NC, sclerae anicteric, moist mucous membranes CHEST: CTA CARDIAC: RRR, normal S1/S2, no appreciable murmurs ABDOMEN: Soft, normoactive bowel sounds, tender to palpation, non-distended EXT: Warm, no edema NEURO: Grossly intact, moves all extremities, no asterixis SKIN: No jaundice LABS: Lab Results Component Value Date Sodium 136 02/20/2021 Potassium 4.1 02/20/2021 Chloride 98 02/20/2021 CO2 31 02/20/2021 BUN 30 (H) 02/20/2021 Creatinine 1.49 (H) 02/20/2021 Glucose Lvl 101 02/20/2021 CBC Lab Results Component Value Date WBC 16.4 (H) 02/20/2021 Hemoglobin 8.0 (L) 02/20/2021 Hematocrit 25.6 (L) 02/20/2021 Platelets 393 (H) 02/20/2021 LFT's Lab Results Component Value Date Alk Phos 310 (H) 02/19/2021 AST 28 02/19/2021 Albumin 2.9 (L) 02/19/2021 Bili, Direct 0.2 02/19/2021 Total Bilirubin 0.4 02/19/2021 ALT 23 02/19/2021 Total Protein 8.0 02/19/2021 IMAGING: Reviewed in [facility] ENDOSCOPY: Reviewed in [facility] IMPRESSION: 65 y.o. hx SIMMONS cirrhosis (bx-confirmed 08/2008),??hx lap ronnie,??HTN, HLD, DM2, GERD, hx TIA, CKD??who underwent ERCP w/ cholangioscopy and EHL (01/17/21) for unsuccessful removal / obliteration of a retained stone in a cystic duct remnant v GB infundibulum in setting of chronic RUQ pain course complicated by post ERCP pancreatitis and peripancreatic fluid collection. She is admitted for persistent abdominal pain likely secondary to fluid collection. IR is planning to drain RUQ fluid collection today with hopes that this will improve symptoms. RECOMMENDATIONS: - IR guided drainage of RUQ fluid collection - Monitor fluid status given history of recent volume overload - Pain control per primary team The plan as outlined above was discussed with Dr. Leigh. Johnny Mai M.D. Fellow in Gastroenterology and Hepatology Pager #[phone] 02/20/2021 Associated attestation - Eliel Leigh MD - 02/20/2021 3:55 PM EDT I have independently seen and examined the patient, and have reviewed the resident???s above note, and agree with the documented history, physical findings, and study results; my evaluation of the patient is below: I met with Ms Lion and reviewed her imaging. I think it bis reasonable to proceedwith percutaneous drainage as planned. Eliel Leigh MD ' * Plan of Care - Saumya Valenzuela RN - 02/20/2021 2:43 AM EDT OUTCOME EVALUATION NOTE: OUTCOME SUMMARY: Pt in for pancreatic pseudocyst. VSS on RA. PRN tylenol given for 6/10 LAZO pain with good affect. PRN dilaudid given for 10/10 pain in abdomen with good affect. Insulin given per orders. See MAR for details. Zosyn started overnight. EKG preformed - see results for details. Blood cultures x2 taken. Results pending. Obtained covid test. Covid not detected. UA collected - see results for details. Chest x-ray performed. See results. Q6hr troponin started. Have been less than 0.01. Pt has been NPO since midnight. AM dose of heparin held per MD. Pt resting between care. PLAN MOVING FORWARD: Monitor VS, BG, labs Manage pain Continue NPO Q6h troponin Continue antibiotics CT guided drain pancreatic INDIVIDUALIZED FALL PREVENTION INTERVENTIONS: Patient-specific fall risk factors per assessment: [current deficits]: Generalized weakness, IV access, hospital environment Assistance [level of assistance required for transfers and ambulation]: SBA Supervision [direct monitoring required during toileting and ADLs]: Eyes on Surveillance [continuous indirect monitoring]: Masimo, bed alarm, call cunningham in reach, room near nursing station, purposeful rounding Patient-specific fall prevention interventions for sensory deficits provided, if applicable: [X] N/A CPG GOAL OUTCOME EVALUATION: * Consult Note - Jaden Carlos MD - 02/19/2021 9:43 PM EDT Interventional Radiology - Brief Consult Note Patient Name: Toyin Lion : [id number] MR#: [id number] Interventional Radiology Service contacted by [facility] at 9:30pm on 02/19/21 regarding the procedure request below. Referring Provider: Wan Trinidad MD Requested Procedure: CT-Guided Abdominal Drain Placement Indication: Peripancreatic fluid collection Presenting Diagnosis/ Complaint: Toyin Lion is a 65 y.o. female with PMH of SIMMONS cirrhosis, cholecystectomy & ERCP, HTN, HLD, DMII c/b diabetic neuropathy, GERD, [facility] by evolving sloane-pancreatic fluid collection. The collection has increased in size to 9 x 7 cm. The medicine team has consulted surgery and GI who deferred surgical and endoscopic intervention and recommended percutaneous drainage. The patient is currently clinically stable with intermittent abdominal pain. Lipase is normal. No evidence of acute pancreatitis. Labs: Last 3 wbc, hgb, hct plt Recent Labs 02/19/21 2105 02/13/21 0445 02/12/21 0559 WBC 15.9* 11.6* 11.0* HGB 7.4* 7.3* 7.4* HCT 23.6* 22.8* 23.3* PLATELET 343 288 271 Last 3 LFTs Recent Labs 02/19/21 2105 02/08/21 0405 02/04/21 2200 01/28/21 1955 AST 28 47* 34* 66* ALT 23 23 26 43* ALKPHOS 310* 313* 222* 269* BILITOT 0.4 0.4 0.6 1.0 BILIDIR 0.2 0.2 -- 0.6* Last 3 Coags Recent Labs 02/19/21 210 PT 15.1* INR 1.3 PTT 33 Imaging: Imaging available in PACS Plan: ??? Sloane-pancreatic fluid collection appears amenable to CT-Guided Drain placement. ??? Place order for CT Guided drainage and contact the Body CT service in the morning to coordinateavailbility of CT guided drainage. My assessment and plan were discussed with Dr. Thomas at 9:45pm 02/19/21. Jaden Carlos MD Interventional & Diagnostic Radiology Pager [phone] 02/19/2021 * Consult Note - Malcolm Li MD - 02/19/2021 9:22 PM EDTSummary: stat [facility] Department of General Surgery Consult Note Consultation Requested by: Tha Bella MD [facility] Toyin Lion is a 65 y.o. female with a history of biopsy-proven SIMMONS cirrhosis, hypertension, hyperlipidemia, type 2 diabetes mellitus, GERD, history of TIA, CKD stage IIIb and status post cholecystectomy and 2016 at [facility], who underwent an ERCP with cholangioscopy for unsuccessful removal of the retained stones in the cystic duct remnant and possibly a GB infundibulum on 01/17/21 complicated bypost ERCP pancreatitis. She was discharged on 01/27 from [facility] but returned to [facility] on 01/29 with persistent abdominal pain, and volume overload, and transferred back to [facility] with evidence of an acute necrotic collection not yet walled off, and a HIDA scan/MRCP revealing no evidence of bile leak and discharged on 02/03 when her abdominal pain was stable. On 02/04, She presents to [facility] with fluid overload and in acute diastolic heart failure and a repeatCT revealed known persistent sloane-pancreatic fluid collections not yet walled off. She was admittedfor for continued supportive care. Today, she presents to [facility] with worsening abdominal pain with repeat CT revealing stable sloane-pancreatic collection 9x7cm with two smaller adjacent collections andpossible hemorrhagic conversion. She remained HDS, with lab work up notable for leukocytosis, Tbil 0.6, deranged LFTs, lipase 190. General surgery is consulted for evaluation of sloane-pancreatic collections for possible surgical intervention. Past Medical History: Past Medical History: Diagnosis Date ??? CKD (chronic kidney disease) 04/05/2020 ??? Delirium 04/05/2020 ??? Diabetes mellitus type 2, uncomplicated 05/14/2014 ??? Hx-TIA (transient ischemic attack) 05/14/2014 ??? Hyperlipidemia 05/28/2014 Off statin due to foot pain side effect ??? Hypertension 05/28/2014 ??? Restless legs syndrome (RLS) 04/05/2020 Past Surgical History Past Surgical History: Procedure Laterality Date ??? PRO ERCP,DIAGNOSTIC N/A 01/17/2021 ERCP performed by Eliel Leigh MD at [facility] ENDOSCOPY Medications No current facility-administered medications on file prior to encounter. Current Outpatient Medications on File Prior to Encounter Medication Sig Dispense Refill ??? aspirin 81 mg Tablet, Chewable Take 81 mg by mouth daily. 90 tablet 3 ??? clopidogreL (Plavix) 75 mg Tablet Take 1 tablet by mouth daily. 90 tablet 3 ??? losartan (Cozaar) 25 mg Tablet Take 1 tablet by mouth daily. 90 tablet 3 ??? magnesium oxide (Mag-Ox) 400 mg (241.3 mg magnesium) Tablet Take 1 tablet by mouth 2 times daily. 180 tablet 3 ??? melatonin 3 mg Tablet Take 2 tablets by mouth nightly. 180 tablet 3 ??? spironolactone (Aldactone) 25 mg Tablet Take 0.5 tablets by mouth daily. 45 tablet 3 ??? torsemide (Demadex) 20 mg Tablet Take 1 tablet by mouth 2 times daily. 60 tablet 3 ??? traZODone (Desyrel) 50 mg [...] by mouth daily. 90 tablet 3 Allergies Allergies Allergen Reactions ??? Benzodiazepines Other (See Comments) Paradoxical reaction to benzodiazepines ??? House Dust ??? Hydrocodone-Acetaminophen Itching ??? Metoclopramide ??? Mold Extracts ??? Pollen Extracts ??? Propoxyphene Hcl Nausea And Vomiting ??? Unknown [Unclassified Drug] Most environmental allergies: grass, workman, trees,pollen Family History: No family history on file. Social History: Social History Socioeconomic History ??? Marital status: Spouse name: Not on file ??? Number of children: Not on file ??? Years of education: Not on file ??? Highest education level: Not on file Occupational History ??? Not on file Tobacco Use ??? Smoking status: Never Smoker ??? Smokeless tobacco: Never Used ??? Tobacco comment: uses medical marijauna Substance and Sexual Activity ??? Alcohol use: [...] Week: ??? Minutes of Exercise per Session: Stress: ??? Feeling of Stress : Social Connections: ??? Frequency of Communication with Friends and Family: ??? Frequency of Social Gatherings with Friends and Family: ??? Attends Faith Services: ??? Active Member of Clubs or Organizations: ??? Attends Club or Organization Meetings: ??? Marital Status: Intimate Partner Violence: ??? Fear of Current or Ex-Partner: ??? Emotionally Abused: ??? Physically Abused: ??? Sexually Abused: Review of Systems: As stated above, otherwise negative Physical Exam: Temp: [37 ??C (98.6 ??F)-37.2 ??C (99 ??F)] Heart Rate: [95] Resp: [16] BP: (105-130)/(53-64) SpO2: [94 %] Heart Rate from SpO2: [85 bpm-95 bpm] General: alert, no acute distress, sleepy Cardiac: Regular rate per monitor Pulmonary: clear to auscultation bilaterally, no increased work of breathing on RA Abdominal: soft, minimally tender in the RUQ, non peritoneal, non distended Neuro: grossly intact, follows commands, AAO x3. Extremities: Warm and well-perfused Labs: Recent Labs 02/19/21210402/13/21 04402/12/21 0559 WBC 15.9* 11.6* 11.0* HGB 7.4* 7.3* 7.4* HCT 23.6* 22.8* 23.3* PLATELET 343 288 271 Recent Labs 02/19/21210402/13/21 0445 02/12/21 0559 NA 134* 131* 134* K 4.3 4.0 3.8 CL 97* 91* 92* CO2 27 35* 37* BUN 31* 22* 22* CREATININE 1.44* 1.10 1.28* Recent Labs 02/19/21210402/08/21 0405 02/04/21 2200 01/28/211954 AST 28 47* 34* 66* ALT 23 23 26 43* ALKPHOS 310* 313* 222* 269* BILITOT 0.4 0.4 0.6 1.0 BILIDIR 0.2 0.2 -- 0.6* Recent Labs 02/19/212104 CALCIUM 9.4 9.4 PHOS 4.1 Recent Labs 02/19/212104 PT 15.1* INR 1.3 PTT 33 Recent Labs 02/19/21 2105 TROPONINT <0.01 PROBNP 1,714* Imaging: CT Abdomen/Pelvis from OSH reviewed. Impression: Toyin Lion is a 65 y.o. female with a history of biopsy-proven SIMMONS cirrhosis, hypertension, hyperlipidemia, type 2 diabetes mellitus, GERD, history of TIA, CKD stage IIIb, and chronic HFrEF andstatus post cholecystectomy and 2016 at [facility], who underwent an ERCP with cholangioscopy for unsuccessful removal of the retained stones in the cystic duct remnant and possibly a GB infundibulum on 01/17/21 complicated by post ERCP pancreatitis. Her clinical course has been complicated by several re-admissions to [facility] and [facility] for recurrent persistent abdominal pain associated with nausea and vomiting. Presentation is most consistent either a walled off necrosis vs infected hematoma vs walled off abscess however cannot rule out communicating fistula. Percutaneous drainage may be complicated by a persistent pancreatic cutaneous fistula. - Recent MRCP did not demonstrate fistulous connection, therefore will most likely recommend IR guided drainage with a step up approach. - Antibiotic therapy is reasonable given leukocytosis and possibility of an infected collection. Considering normal lipase, unlikely that this presentation is an acute pancreatitis picture. Will be discussed in AM surgery conference prior to final recommendations. Elpidio Ortiz MD General Surgery Consult Pager [phone] Surgery Staff Note 65 yo woman s/p laparoscopic cholecystectomy with recurrent abdominal pain s/p ERCP and attempted stone extraction in January complicated by pancreatitis with subsequent development of a fluid collection around the head of the pancreas now with increased pain and fullness in the RUQ. That demonstrated a small remnant of infundibulum and the remaining stone was unable to be extrated. CT (non contrast) demonstrates collection around the pancreatic head with a thick wall consistent with possible walled off necrotic cavity. Exam: Pleasant cooperative but tired appearing woman in no acute distress No resp distress Regular pulse Abdomen tender in the RUQ, non peritoneal and fullness but no clear mass Assessment: Fluid collection around the pancreatic head (possible walled off necrosis) but cannot discern without contrast. Given now 5 weeks into this best option is probably IR drainage. A small chance this could be a biloma but feel unlikely given ERCP images. Recommend: IR drainage of RUQ cavity If possible would do repeat CT with contrast to delineate relationship of duodenum to the cyst to insure that there is not Inadvertent IR drainage of the duodenum given their close proximity Send fluid for cultures and amylase and lipase Should undergo interval cholecystectomy at some point in the future due to pain but inflammatory mass will need to have Resolved prior to this [x] I saw and evaluated the patient. I reviewed Dr. Ortiz's note and agree with the findings and plans as documented documented in this encounter Plan of Treatment Upcoming Encounters Date Type Department Care Team (Latest Contact Info) Description 05/08/2024 10:30 AM EDT Hospital [place] [phone] Bk Contreras MD [facility] [place] [place] [address] 05/08/2024 10:30 AM EDT - 05/08/2024 11:00 [place] [phone] Bk Contreras MD [facility] [place] [address] INJECTION, ANESTHETIC AGENT AND/OR STEROID, TRANSFORAMINAL EPIDURAL, LUMBAR OR SACRAL, SINGLE LEVEL (WRVU 1.9) 05/12/2024 1:00 PM EDT Office Visit Cardiology at [address] [phone] Sadi Styles MD [facility] [place] [address] 05/29/2024 10:15 AM EDT TH Visit (TeleHealth) [facility] [place] [phone] Natalee Sanchez APRN [facility] [place] [address] Scheduled Procedures Name Priority Associated Diagnoses Date/Ti me INJECTION, ANESTHETIC AGENT AND/OR STEROID, TRANSFORAMINAL EPIDURAL, LUMBAR OR SACRAL, SINGLE LEVEL (WRVU 1.9) Left lumbar radiculopathy 05/08/2024 10:30 AM EDT documented as of this encounter Procedures Procedure Name Priority Date/Time Associated Diagnosis Comments TRANSFUSE RED BLOOD CELLS Routine 02/21/2021 11:45 AM EDT POCT GLUCOSE Routine 02/21/2021 11:38 AM EDT PREPARE RBC Routine 02/21/2021 10:35 AM EDT POCT GLUCOSE Routine 02/21/2021 8:14 AM EDT TYPE AND SCREEN VALIDITY Routine 02/21/2021 7:51 AM EDT ABORH RECHECK STATUS Routine 02/21/2021 7:51 AM EDT ABO/RH TYPING Routine 02/21/2021 7:51 AM EDT ANTIBODY SCREEN Routine 02/21/2021 7:51 AM EDT HC ANTIBODY DETECTION,CAPTURE-R Routine 02/21/2021 7:51 AM EDT POCT GLUCOSE Routine 02/21/2021 3:09 AM EDT HEMOGRAM Routine 02/21/2021 3:09 AM EDT DIFFERENTIAL, AUTOMATED Routine 02/21/2021 3:09 AM EDT HC CBC,PLT & AUTO DIFF Routine 3:09 AM EDT HC MAGNESIUM, SERUM Routine 02/21/2021 3 :09 AM EDT BASIC METABOLIC PANEL (NON-FASTING) Routine 02/21/2021 3:09 AM EDT LAB SCAN 02/21/2021 12:00 AM EDT POCT GLUCOSE Routine 02/20/2021 11:50 PM EDT POCT GLUCOSE Routine 02/20/2021 8:04 PM EDT POCT GLUCOSE Routine 02/20/2021 4:35 PM EDT POCT GLUCOSE Routine 02/20/2021 1:[address] GUIDED DRAIN PANCREATIC/PERIPANCREA TIC Routine 02/20/2021 12:43 PM EDT ANAEROBIC CULTURE Routine 02/20/2021 12: 30 PM EDT HC CONC. FOR INFECTIOUS AGENTS Routine 02/20/2021 12:30 PM EDT BODY FLUID CULTURE, AEROBIC Routine 02/20/2021 12:30 PM EDT HC AMYLASE Routine 02/20/2021 12:30 PM EDT POCT GLUCOSE Routine 02/20/2021 11:30 AM EDT HC TROPONIN T STAT 02/20/2021 10:09 AM EDT POCT GLUCOSE Routine 02/20/2021 7:50 AM EDT HEMOGRAM Routine 02/20/2021 4:03 AM EDT DIFFERENTIAL, AUTOMATED Routine 02/20/2021 4:03 AM EDT HC CBC,PLT & AUTO DIFF Routine 4:03 AM EDT HC TROPONIN T STAT 02/20/2021 4:03 AM EDT HC MAGNESIUM, SERUM Routine 02/20/2021 4 :03 AM EDT BASIC METABOLIC PANEL (NON-FASTING) Routine 02/20/2021 4:03 AM EDT POCT GLUCOSE Routine 02/20/2021 3:58 AM EDT POCT GLUCOSE Routine 02/19/2021 11:29 PM EDT URINALYSIS MICROSCOPIC EXAM Routine 02/19/2021 11:19 PM EDT URINE HOLD Routine 02/19/2021 11:19 PM EDT URINALYSIS WITH REFLEX CULTURE Routine 02/19/2021 11:19 PM EDT HC VENIPUNCTURE STAT 02/19/2021 11:08 PM EDT HC VENIPUNCTURE STAT 02/19/2021 11:01 PM EDT XR CHEST PA AND LATERAL STAT 02/19/2021 10:11 PM EDT RAPID COVID-19 PCR ([facility]) Routine 02/19/2021 9:37 PM EDT HEMOGRAM Routine 02/19/2021 9:05 PM EDT DIFFERENTIAL, AUTOMATED Routine 02/19/2021 9:05 PM EDT HC PARTIAL THROMBOPLASTIN TIME Routine 02/19/2021 9:05 PM EDT HC PROTHROMBIN TIME Routine 02/19/2021 9 :05 PM EDT HC CBC,PLT & AUTO DIFF Routine 9:05 PM EDT HC TROPONIN T STAT 02/19/2021 9:05 PM EDT HC PHOSPHORUS, SERUM Routine 02/19/2021 9:05 PM EDT HC PROBNP Routine 02/19/2021 9:05 PM EDT HC MAGNESIUM, SERUM Routine 02/19/2021 9 :05 PM EDT HC LIPASE Routine 02/19/2021 9:05 PM EDT HC CALCIUM, SERUM Routine 02/19/2021 9:0 5 PM EDT HEPATIC FUNCTION PANEL Routine 9:05 PM EDT BASIC METABOLIC PANEL (NON-FASTING) Routine 02/19/2021 9:05 PM EDT EKG 12-LEAD Routine 02/19/2021 8:26 PM EDT Gastroesophageal reflux disease with esophagitis without hemorrhage POCT GLUCOSE Routine 02/19/2021 8:19 PM EDT documented in this encounter Results * CT [...] interpretation and agree with the findings, Mauro Thomas, DO at 03/13/2021 3:51 PM Thank you for letting us participate in the care of this patient. ??If you are a health care provider and have any questions regarding this report, please contact the number below. ??For patients who have questions please contact the health health care legal assistant that requested your imaging first. ? Narrative 03/13/2021 3:51 PM EDT EXAMINATION: CT [...] the same date, March 13, 2021 FINDINGS: Technical Solution Architect Images: Noncontributory. Lower chest: Mild bibasilar atelectasis. [...] the level of L5-S1. Procedure Note Mauro Thomas DO - 03/13/2021 EXAMINATION: CT ABDOMEN AND [...] administration of contrast. Administered 85.0 ml of [id number] mg/ml. Oral contrast was administered. COMPARISON: CT abdomen and pelvis dated 01/29/2021. Correlation is madeto drainage catheter evaluation of the same date, March 13, 2021 FINDINGS: Technical Solution Architect Images: Noncontributory. Lower chest: Mild bibasilar atelectasis. [...] patients who have questions please contactthe health health care legal assistant that requested your imaging first. Wei Rodriguez MD IMG CT ORDERABLES * IR Drain Check/Change/Remove (03/13/2021 8:20 AM EDT) Anatomical Region Laterality Modality Head X-Ray Angiograph y Narrative 03/13/2021 8:51 AM EDT IR PROCEDURE NOTE ?? Procedure: Retroperitoneal drain injection. ?? Indication for Procedure: Per Toyin Chavarria??is a 65 y.o.??female??with SIMMONS cirrhosis (biopsy confirmed [...] drain study. ?? Resident/Fellow: ??None. ?? Attending: Dr. Omero Nelson performed this procedure. ? Prone Mauro Thomas DO IMG IR ORDERABLES * Transfuse RBC (02/21/2021 3:14 PM EDT) Wei Rodriguez MD NURSING TREATMENT OR DERABLES - BLOOD ADMIN * Transfuse RBC (02/21/2021 3:14 PM EDT) Wei Rodriguez MD NURSING TREATMENT OR DERABLES - BLOOD ADMIN * (ABNORMAL) POCT Glucose (02/21/2021 11:38 AM EDT) POC Glucose 200(H) 65 - 199 mg/dL [facility] Comment: Supplemental ranges: <140 mg/dL before meals <180 mg/dL all other times of the day Blood specimen (specimen) 02/21/2021 11:38 AM EDT 02/21/2021 11:38 AM EDT Wei Rodriguez MD POINT OF CARE TEST O RDERABLES Performing Organization Address City/[facility]/ZIP Co de Phone Number [facility] [place] [address] * Prepare RBC (02/21/2021 10:35 AM EDT) Dispensed? Yes [facility] Blood specimen (specimen) 02/21/2021 10:35 AM EDT 02/21/2021 10:34 AM EDT Narrative Resulting Agency Comment Spec In Lab Wei Rodriguez MD BLOOD BANK PRODUCT O RDERABLES Performing Organization Address City/[facility]/ZIP Co de Phone Number [facility] [place] [address] * POCT Glucose (02/21/2021 8:14 AM EDT) [facility] POC Glucose 161 65 - 199 mg/dL [facility] Comment: Supplemental ranges: <140 mg/dL before meals <180 mg/dL all other times of the day Blood specimen (specimen) 02/21/2021 8:14 AM EDT 02/21/2021 8:14 AM EDT Wei Rodriguez MD POINT OF CARE TEST O RDERABLES Performing Organization Address City/[facility]/ZIP Co de Phone Number [facility] [place] [address] * Type and Screen Validity (02/21/2021 7:51 AM EDT) T&S only valid at [facility] Comment:This Type and Screen result is only valid at the [facility] Blood specimen (specimen) 02/21/2021 7:51 AM EDT 02/21/2021 8:07 AM EDT Narrative Resulting Agency Comment Spec In Lab Jaden Guallpa MD BLOOD BANK LAB ORDKaushik SANDHUMERI Performing Organization Address City/[facility]/ZIP Co de Phone Number [facility] [place] [address] * ABORH Recheck Status (02/21/2021 7:51 AM EDT) ABORH Type Recheck Completed [facility] Blood specimen (specimen) 02/21/2021 7:51 AM EDT 02/21/2021 8:07 AM EDT Narrative Resulting Agency Comment Spec In Lab Jaden Guallpa MD BLOOD BANK LAB ORDKaushik SANDIP Performing Organization Address [facility] Co de Phone Number [facility] [place] [address] * Antibody screen (02/21/2021 7:51 AM EDT) Ab Screen Interp Negative [facility] Expires at [id number] on: 02/24/2021 [facility] Blood specimen (specimen) 02/21/2021 7:51 AM EDT 02/21/2021 8:07 AM EDT Narrative Resulting Agency Comment Spec In Lab Jaden Guallpa MD BLOOD BANK LAB ALEKSANDRA OROPEZA Performing Organization Address [facility]/ZIP Co de Phone Number [facility] [place] [address] * ABO/Rh Typing (02/21/2021 7:51 AM EDT) ABORH Type O Pos [facility] Blood specimen (specimen) 02/21/2021 7:51 AM EDT 02/21/2021 8:07 AM EDT Narrative Resulting Agency Comment Spec In Lab Jaden Guallpa MD BLOOD BANK LAB ORDE SANDIP [facility] [place] [address] * POCT Glucose (02/21/2021 3:09 AM EDT) [facility] POC Glucose 146 65 - 199 mg/dL [facility] Comment: Supplemental ranges: <140 mg/dL before meals <180 mg/dL all other times of the day Blood specimen (specimen) 02/21/2021 3:09 AM EDT 02/21/2021 3:09 AM EDT Wei Rodriguez MD POINT OF CARE TEST O MAUREEN Performing Organization Address City/[facility]/ZIP Co de Phone Number [facility] [place] [address] * (ABNORMAL) Differential, Automated (02/21/2021 3:09 AM EDT) Pathologist [facility] Neutrophils % 74.2 % [facility] Neutr Abs (ANC) 11.59(H) 1.70 - 6.10 x10(3)/mc L [facility] Lymphocytes % 18.5 % [facility] Lymphocytes Abs 2.9 0.9 - 3.2 x10(3)/mc L [facility] Monocytes % 5.8 % [facility] Monocyte Abs 0.9 0.3 - 0.9 x10(3)/mc L [facility] Eosinophils % 0.8 % [facility] Eosinophils Abs 0.1 0.0 - 0.4 x10(3)/mc L [facility] Basophils % 0.3 % [facility] Basophils Abs 0.0 0.0 - 0.1 x10(3)/mc L [facility] Immature Gran % 0.40 % [facility] Comment: Immature granulocytes(IG's)percentage and absolute count will include metamyelocytes, myelocytes, and promyelocytes. Blood smears from CBCs yielding IG's will be scanned manually for concordance. If this scan disagrees with the automated IG or if promyelocytes are noted, a manual differential will be performed. Anya Gran Abs 0.07(H) 0.00 - 0.04 x10(3)/[facility] Blood specimen (specimen) 02/21/2021 3:09 AM EDT 02/21/2021 3:40 AM EDT Narrative Resulting Agency Comment Spec In Lab Wan Trinidad MD HEMATOLOGY ORDERABLE S [facility] [place] [address] * (ABNORMAL) Hemogram (02/21/2021 3:09 AM EDT) WBC 15.6(H) 4.0 - 9.5 x10(3)/[facility] RBC 2.34(L) 4.00 - 5.21 x10(6)/[facility] Hemoglobin 7.0(L) 11.7 - 15.5 gm/dL [facility] Hematocrit 22.0(L) 35.7 - 45.8 % [facility] MCV 94.0 82.6 - 94.4 [facility] MCH 29.9 27.1 - 32.0 pg [facility] MCHC 31.8 31.7 - 35.0 gm/dL [facility] Platelets 328 145 - 357 x10(3)/[facility] RDWSD 48.5(H) 37.0 - 46.0 [facility] RDWCV 14.3(H) 11.5 - 14.1 % [facility] MPV 10.6 7.6 - 12.9 [facility] nRBC % Auto 0.0 % [facility] nRBC Abs Auto 0.000 0.000 - 0.000 x10(3)/[facility] Blood specimen (specimen) 02/21/2021 3:09 AM EDT 02/21/2021 3:40 AM EDT Narrative Resulting Agency Comment Spec In Lab Wan Trinidad MD HEMATOLOGY ORDERABLE S Performing Organization Address City/[facility]/ZIP Co de Phone Number [facility] [place] [address] * Magnesium (02/21/2021 3:09 AM EDT) Magnesium 0.83 0.69 - 1.07 mmol/L [facility] Blood specimen (specimen) 02/21/2021 3:09 AM EDT 02/21/2021 3:41 AM EDT Narrative Resulting Agency Comment Spec In Lab Tha Bella MD CHEMISTRY ORDERABLES Performing Organization Address [facility] Co de Phone Number [facility] [place] [address] * (ABNORMAL) Basic Metabolic Panel (non-fasting) (02/21/2021 3:09 AM EDT) Glucose Lvl 144 65 - 199 mg/dL [facility] Comment:Diabetes: >=200 mg/d L plus symptoms BUN 30(H) 8 - 18 mg/dL [facility] Creatinine 1.28(H) 0.70 - 1.20 mg/dL [facility] Sodium 133(L) 135 - 145 mmol/L [facility] Potassium 4.1 3.5 - 5.0 mmol/L [facility] Comment: Please note: ??Patients with WBC >100,000 may have falsely elevated Potassium levels. ??For accurate Potassium quantification in these patients send serum separator tube (gold top) for subsequent determinations. ??Contact the Clinical Chemistry Laboratory if there are any questions. Chloride 97(L) 98 - 107 mmol/L [facility] CO2 27 22 - 31 mmol/L [facility] Anion Gap 9 5 - 15 mmol/L [facility] Calcium 8.8 8.5 - 10.5 mg/dL [facility] Estimated GFR 43(L) >=60 mL/min/1. 73 m?? [facility] Comment: This patient? s estimated glomerular filtration rate (eGFR) is between 43 mL/min/1.73 m2 (patients with less muscle mass) and 50 mL/min/1.73 m2 (patients with more muscle mass) [...] and symptoms in addition to eGFR. Blood specimen (specimen) 02/21/2021 3:09 AM EDT 02/21/2021 3:41 AM EDT Narrative Resulting Agency Comment Spec In Lab Tha Bella MD CHEMISTRY ORDERABLES Performing Organization Address [facility] Co de Phone Number [facility] [place] [address] * SCAN DOC: LAB (02/21/2021 12:00 AM EDT) Narrative 02/21/2021 12:00 AM EDT Ordered by an unspecified provider. Scanning Provider MEDIA MGR SCAN EXT O RDR/RSLT * POCT Glucose (02/20/2021 11:50 PM EDT) POC Glucose 142 65 - 199 mg/dL [facility] Comment: Supplemental ranges: <140 mg/dL before meals <180 mg/dL all other times of the day Blood specimen (specimen) 02/20/2021 11:50 PM EDT 02/20/2021 11:50 PM EDT Wei Rodriguez MD POINT OF CARE TEST O RDERABLES Performing Organization Address City/[facility]/ZIP Co de Phone Number [facility] [place] [address] * POCT Glucose (02/20/2021 8:04 PM EDT) POC Glucose 179 65 - 199 mg/dL [facility] Comment: Supplemental ranges: <140 mg/dL before meals <180 mg/dL all other times of the day Blood specimen (specimen) 02/20/2021 8:04 PM EDT 02/20/2021 8:04 PM EDT Wei Rodriguez MD POINT OF CARE TEST O RDERAMARIE [facility] [place] [address] * POCT Glucose (02/20/2021 4:35 PM EDT) POC Glucose 154 65 - 199 mg/dL [facility] Comment: Supplemental ranges: <140 mg/dL before meals <180 mg/dL all other times of the day Blood specimen (specimen) 02/20/2021 4:35 PM EDT 02/20/2021 4:35 PM EDT Wei Rodriguez MD POINT OF CARE TEST O RDERAMARIE [facility] [place] [address] * POCT Glucose (02/20/2021 1:11 PM EDT) POC Glucose 131 65 - 199 mg/dL [facility] Comment: Supplemental ranges: <140 mg/dL before meals <180 mg/dL all other times of the day Blood specimen (specimen) 02/20/2021 1:11 PM EDT 02/20/2021 1:11 PM EDT Wei Rodriguez MD POINT OF CARE TEST O RDERABLES [facility] [place] [address] * CT Guided Drain Pancreatic/Peripancreatic (02/20/2021 12:43 PM EDT) Anatomical Region Laterality Modality Computed Tomogra phy Narrative 02/20/2021 1:07 PM EDT INTERVENTIONAL RADIOLOGY PROCEDURE NOTE Procedure: CT-Guided [place]loane-Pancreatic Abscess Drainage Catheter Placement Indication for Procedure: Pancreatic Collection, Enlarging. ??Leukocytosis. Fever. ?? Toyin Lion is a 65 y.o. female presenting to IR for drainage catheter placement into sloane-pancreatic collection. ??Past medical history is significant for SIMMONS cirrhosis (biopsy confirmed 2007), prior cholecystectomy, HTN, HLD, DMII complicated by diabetic neuropathy, GERD, prior TIA, & CKD??III, and prior admissions for post-ERCP pancreatitis and diastolic heart failure, who is transferred from [facility] for evolving sloane-pancreatic fluid collection in the setting of pancreatitis. On imaging, a large pancreatic collection centered in the pancreatic head and extending outward has been increasing in size. ??The case was reviewed by the Surgical and Gastrointestinal Services and request is for percutaneous drainage catheter placement into the collection. ??Request is for a retroperitoneal approach for planned future surgical intervention. Informed Consent: After discussing risks (including infection, trauma / damage to surrounding structures, hemorrhage, non-success, amongst others), and benefits of the procedure, the patient consented to the procedure. Monitoring and Sedation Details: Due to the painful nature of the procedure, patient received split doses of intravenous fentanyl from the IR nurse while pulse, pressure,??end tidal CO2 parameters and oxygen saturation were continuously monitored. Procedure Events and Technique: A standard time-out was conducted just before the start of the procedure to verify all yi aspects; including the correct patient and planned procedure, procedure location, informed consent, and all relevant critical information, all of which were correct. The patient was positioned prone on the procedure table. ??The right flank was cleaned and prepped in typical sterile fashion; maximal sterile barrier technique was used throughout. ?? Initial non-contrast localizing scan obtained, lesion was localized. ??A site for drain placement was chosen and identified on the skin with the assistance of the CT laser lights. ??The skin was marked and local anesthesia provided with 1% lidocaine. ??An 18 ga needle was directed into the collection with CT fluoroscopy. ??A guide wire was placed and position within the collection confirmed with CT. ??The access tract was dilated and a 10-Fr locking pigtail drainage catheter was advanced. ??Post placement scan showed the catheter within the collection. ??Aspiration was performed. The catheter connected to bulb drainage. Medications: Fentanyl 75 mcg IV, 1% Lidocaine <10 cc subcutaneous. Contrast: None Estimated Blood Loss: <5 cc. Complications: ??No immediate. Findings: ? Large pancreatic / sloane-pancreatic collection as on prior CT. ? Placement of 10.2-Fr drainage catheter into collection. ??100 cc of wellington, purulent fluid aspirated. ??Sample sent for gram stain and culture. Impression: Successful CT-guided drainage catheter placement into sloane-pancreatic abscess. Resident/Fellow: None. Attending: Dr. Mauro Thomas. I, Dr. Thomas, was present throughout the procedure. I was present during the intraservice time as documented by the IR Nurse. ?? Tha Bella MD IMG CT ORDERABLES * Amylase Level Body Fluid Peritoneal Fluid (02/20/2021 12:30 PM EDT) Amylase, BF 14 unit/L [facility] Comment: No reference range is available for the specimen type submitted. ??The performance of this assay for the submitted type has not been validated and results should be interpreted accordingly and with regard to the patient's clinical status. Amylase BF Type Peritoneal fl [facility] Peritoneal fluid specimen (specimen) 02/20/2021 12:30 PM EDT 02/20/2021 2:08 PM EDT Narrative Resulting Agency Comment Spec In Lab Wei Rodriguez MD BODY FLUIDS AND STOO LS ORDERABLES [facility] [place] [address] * (ABNORMAL) Anaerobic Culture (02/20/2021 12:30 PM EDT) Anaerobic Culture Rare Prevotella species(A) [facility] Organism Prevotella species(A) [facility] Abdominal Fluid 02/20/2021 1 2:30 PM EDT 02/20/2021 2:29 PM EDT Comment:CT GUIDED ABSCESS DR MONTES Narrative Resulting Agency Comment Spec In Lab Tha Bella MD MICROBIOLOGY - GENER AL ORDERABLES Performing Organization Address [facility] de Phone Number [facility] [place] [address] * (ABNORMAL) Body Fluid Culture, Aerobic (02/20/2021 12:30 PM EDT) Body Fluid Culture Rare Streptococcus milleri, anginosis group(A) [facility] Gram Stain Cytocentrifuge Gram Stain performed Neutrophils seen No microorganisms seen. (A) [facility] Organism Streptococcus milleri, anginosis group(A) [facility] Abdominal Fluid 02/20/2021 1 2:30 PM EDT 02/20/2021 2:29 PM EDT Comment:CT GUIDED ABSCESS DR MONTES Narrative Resulting Agency Comment Spec In Lab Organism Antibiotic Method Susceptibility Streptococcus milleri Penicillin MINIMUM IN HIBITORY CONCENTRATION 0.125: Sensitive Comment: Penicillin susceptible Streptococci species can be considered susceptible to Ampicillin, Ampicillin-Sulbactam, Amoxicillin, Amoxicillin-Clavulanate, Ceftriaxone and Meropenem. Tha Bella MD MICROBIOLOGY - GENER AL ORDERABLES Performing Organization Address [facility] Co de Phone Number [facility] [place] [address] * POCT Glucose (02/20/2021 11:30 AM EDT) POC Glucose 144 65 - 199 mg/dL [facility] Comment: Supplemental ranges: <140 mg/dL before meals <180 mg/dL all other times of the day Blood specimen (specimen) 02/20/2021 11:30 AM EDT 02/20/2021 11:30 AM EDT Wei Rodriguez MD POINT OF CARE TEST O RDERABLES Performing Organization Address [facility]/ZIP Co de Phone Number [facility] [place] [address] * Troponin (02/20/2021 10:09 AM EDT) [facility] Troponin-T <0.01 0.00 - 0.00 ng/mL [facility] Comment: The 99th percentile for Troponin T is less than 0.01 ng/mL, any detectable cTnT concentration using this assay should be considered elevated. According to the third universal definition of myocardial infarction the following criteria with a clinical presentation consistent with acute myocardial ischemia meets the diagnosis for a myocardial infarction ([place]). Detection of a rise and/or fall of cTnT, with at least one value greater than the 99th percentile (> or = 0.01) and with at least one of the following ?? Symptoms of ischemia ?? New or presumed new significant EJ-[id number]-D wave (ST-T) changes or new left bundle [...] additional sample may be indicated. Reference: Third [place] Definition of Myocardial Infarction. Journal of the [place] [employer] 2012;60:1581-98 Blood specimen (specimen) 02/20/2021 10:09 AM EDT 02/20/2021 10:34 AM EDT Narrative Resulting Agency Comment Spec In Lab Tha Bella MD CHEMISTRY ORDERABLES Performing Organization Address [facility]/ZIP Co de Phone Number [facility] [place] [address] * POCT Glucose (02/20/2021 7:50 AM EDT) [facility] POC Glucose 136 65 - 199 mg/dL [facility] Comment: Supplemental ranges: <140 mg/dL before meals <180 mg/dL all other times of the day Blood specimen (specimen) 02/20/2021 7:50 AM EDT 02/20/2021 7:50 AM EDT Tha Bella MD POINT OF CARE TEST O RDERABLES [facility] [place] [address] * (ABNORMAL) Differential, Automated (02/20/2021 4:03 AM EDT) Neutrophils % 70.1 % [facility] Neutr Abs (ANC) 11.50(H) 1.70 - 6.10 x10(3)/[facility] Lymphocytes % 21.9 % [facility] Lymphocytes Abs 3.6(H) 0.9 - 3.2 x10(3)/[facility] Monocytes % 6.3 % [facility] Monocyte Abs 1.0(H) 0.3 - 0.9 x10(3)/[facility] Eosinophils % 0.8 % [facility] Eosinophils Abs 0.1 0.0 - 0.4 x10(3)/[facility] Basophils % 0.4 % [facility] Basophils Abs 0.1 0.0 - 0.1 x10(3)/[facility] Immature Gran % 0.50 % [facility] Comment: Immature granulocytes(IG's)percentage and absolute count will include metamyelocytes, myelocytes, and promyelocytes. Blood smears from CBCs yielding IG's will be scanned manually for concordance. If this scan disagrees with the automated IG or if promyelocytes are noted, a manual differential will be performed. Anya Gran Abs 0.09(H) 0.00 - 0.04 x10(3)/[facility] LABORATORY Blood specimen (specimen) 02/20/2021 4:03 AM EDT 02/20/2021 4:35 AM EDT Narrative Resulting Agency Comment Spec In Lab Wan Trinidad MD HEMATOLOGY ORDERABLE S [facility] [place] [address] * (ABNORMAL) Hemogram (02/20/2021 4:03 AM EDT) WBC 16.4(H) 4.0 - 9.5 x10(3)/[facility] LABORATORY RBC 2.69(L) 4.00 - 5.21 x10(6)/[facility] LABORATORY Hemoglobin 8.0(L) 11.7 - 15.5 gm/dL [facility] Hematocrit 25.6(L) 35.7 - 45.8 % [facility] MCV 95.2(H) 82.6 - 94.4 fL [facility] MCH 29.7 27.1 - 32.0 pg [facility] MCHC 31.3(L) 31.7 - 35.0 gm/dL [facility] Platelets 393(H) 145 - 357 x10(3)/[facility] LABORATORY RDWSD 50.4(H) 37.0 - 46.0 [facility] LABORATORY RDWCV 14.6(H) 11.5 - 14.1 % [facility] MPV 10.4 7.6 - 12.9 [facility] LABORATORY nRBC % Auto 0.0 % [facility] LABORATORY nRBC Abs Auto 0.000 0.000 - 0.000 x10(3)/[facility] LABORATORY Blood specimen (specimen) 02/20/2021 4:03 AM EDT 02/20/2021 4:35 AM EDT Narrative Resulting Agency Comment Spec In Lab Wan Trinidad MD HEMATOLOGY ORDERABLE S [facility] [place] [address] * Troponin (02/20/2021 4:03 AM EDT) Troponin-T <0.01 0.00 - 0.00 ng/mL [facility] Comment: The 99th percentile for Troponin T is less than 0.01 ng/mL, any detectable cTnT concentration using this assay should be considered elevated. According to the third universal definition of myocardial infarction the following criteria with a clinical presentation consistent with acute myocardial ischemia meets the diagnosis for a myocardial infarction (VA). Detection of a rise and/or fall of cTnT, with at least one value greater than the 99th percentile (> or = 0.01) and with at least one of the following ?? Symptoms of ischemia ?? New or presumed new significant NF-umsgtqs-P wave (ST-T) changes or new left bundle [...] additional sample may be indicated. Reference: Third [place] Definition of Myocardial Infarction. Journal of the [place] [employer] 2012;60:1581-98 Blood specimen (specimen) 02/20/2021 4:03 AM EDT 02/20/2021 4:35 AM EDT Narrative Resulting Agency Comment Spec In Lab Tha Bella MD CHEMISTRY ORDERABLES Performing Organization Address City/State/[facility] Co de Phone Number [facility] [place] [address] * Magnesium (02/20/2021 4:03 AM EDT) Magnesium 0.90 0.69 - 1.07 mmol/L [facility] Blood specimen (specimen) 02/20/2021 4:03 AM EDT 02/20/2021 4:35 AM EDT Narrative Resulting Agency Comment Spec In Lab Tha Bella MD CHEMISTRY ORDERABLES [facility] [place] [address] * (ABNORMAL) Basic Metabolic Panel (non-fasting) (02/20/2021 4:03 AM EDT) Glucose Lvl 101 65 - 199 mg/dL [facility] Comment:Diabetes: >=200 mg/d L plus symptoms BUN 30(H) 8 - 18 mg/dL [facility] Creatinine 1.49(H) 0.70 - 1.20 mg/dL [facility] Sodium 136 135 - 145 mmol/L [facility] Potassium 4.1 3.5 - 5.0 mmol/L [facility] Comment: Please note: ??Patients with WBC >100,000 may have falsely elevated Potassium levels. ??For accurate Potassium quantification in these patients send serum separator tube (gold top) for subsequent determinations. ??Contact the Clinical Chemistry Laboratory if there are any questions. Chloride 98 98 - 107 mmol/L [facility] CO2 31 22 - 31 mmol/L [facility] Anion Gap 7 5 - 15 mmol/L [facility] Calcium 9.7 8.5 - 10.5 mg/dL [facility] Estimated GFR 36(L) >=60 mL/min/1. 73 m?? [facility] Comment: This patient? s estimated glomerular filtration rate (eGFR) is between 36 mL/min/1.73 m2 (patients with less muscle mass) [...] and symptoms in addition to eGFR. Blood specimen (specimen) 02/20/2021 4:03 AM EDT 02/20/2021 4:35 AM EDT Narrative Resulting Agency Comment Spec In Lab Tha Bella MD CHEMISTRY ORDERABLES Performing Organization Address [facility] Co de Phone Number [facility] [place] [address] * POCT Glucose (02/20/2021 3:58 AM EDT) POC Glucose 102 65 - 199 mg/dL [facility] Comment: Supplemental ranges: <140 mg/dL before meals <180 mg/dL all other times of the day Blood specimen (specimen) 02/20/2021 3:58 AM EDT 02/20/2021 3:58 AM EDT Tha Bella MD POINT OF CARE TEST O RDERABLES Performing Organization Address [facility] Co de Phone Number [facility] [place] [address] * POCT Glucose (02/19/2021 11:29 PM EDT) POC Glucose 183 65 - 199 mg/dL [facility] Comment: Supplemental ranges: <140 mg/dL before meals <180 mg/dL all other times of the day Blood specimen (specimen) 02/19/2021 11:29 PM EDT 02/19/2021 11:29 PM EDT Tha Bella MD POINT OF CARE TEST O RDERABLES Performing Organization Address [facility] Co de Phone Number [facility] [place] [address] * (ABNORMAL) Urinalysis Microscopic Exam (02/19/2021 11:19 PM EDT) RBC UA 47(H) 0 - 4 /HPF [facility] WBC UA 2 0 - 5 /HPF [facility] Squam Epith UA 13(H) <=4 /HPF [facility] Hyaline Cast UA 4(H) 0 - 2 /LPF [facility] Urine specimen obtained by clean catch procedure (specimen) 02/19/2021 11:19 PM EDT 02/19/2021 11:28 PM EDT Narrative Resulting Agency Comment Spec In Lab Wan Trinidad MD URINE ORDERABLES Performing Organization Address City/[facility]/ZIP Co de Phone Number [facility] [place] [address] * Urine Hold (02/19/2021 11:19 PM EDT) Urine Hold Sample in lab. [facility] Urine specimen (specimen) Urine / Unknown 02/19/2021 11:19 PM EDT 02/19/2021 11:28 PM EDT Wan Trinidad MD URINE ORDERABLES Performing Organization Address City/[facility] Co de Phone Number [facility] [place] [address] * (ABNORMAL) Urinalysis with reflex Culture (02/19/2021 11:19 PM EDT) Glucose UA Negative Negative mg/dL [facility] Protein UA 100(A) Negative mg/dL [facility] Bilirubin UA Negative Negative mg/dL [facility] Comment: Clinical correlation required for positive Urine Bilirubin results as false positive may occur with some drugs and drug related products. If a false positive is suspected a serum total bilirubin should be considered if clinically indicated. Urobilinogen UA Normal Normal mg/dL [facility] pH UA 7.0 5.0 - 8.0 [facility] Blood UA Moderate(A) Negative mg/dL [facility] Ketones UA Negative Negative mg/dL [facility] Nitrite UA Negative Negative [facility] Leukocytes UA Negative Negative [facility] LABORATORY Appearance UA Clear Clear [facility] Spec Isom UA 1.016 1.006 - 1.030 [facility] Color UA Yellow Yellow [facility] Culture Reflexed No [facility] Urine specimen obtained by clean catch procedure (specimen) 02/19/2021 11:19 PM EDT 02/19/2021 11:28 PM EDT Narrative Resulting Agency Comment Spec In Lab Tha Bella MD URINE ORDERABLES Performing Organization Address City/[facility] Co de Phone Number [facility] [place] [address] * Blood culture (02/19/2021 11:08 PM EDT) Blood Culture No growth at 5 days. [facility] Blood 02/19/2021 11:0 8 PM EDT 02/20/2021 1:23 AM EDT Narrative Resulting Agency Comment Spec In Lab Tha Bella MD MICROBIOLOGY - BLOOD ORDERABLES Performing Organization Address [facility] Co de Phone Number [facility] [place] [address] * Blood culture (02/19/2021 11:01 PM EDT) Blood Culture No growth at 5 days. [facility] Blood 02/19/2021 11:0 1 PM EDT 02/20/2021 1:22 AM EDT Narrative Resulting Agency Comment Spec In Lab Tha Bella MD MICROBIOLOGY - BLOOD ORDERABLES Performing Organization Address [facility] Co de Phone Number [facility] [place] [address] * XR Chest PA & Lateral (Generic) (02/19/2021 10:11 PM EDT) Anatomical Region Laterality Modality Chest N/A Digital Radiogra phy Impressions 02/19/2021 10:20 PM EDT 1. ??No acute cardiopulmonary process. 2. ??Decreased pulmonary vascular congestion. Thank you for letting us participate in the care of this patient. ??If you are a health care provider and have any questions regarding this report, please contact the number below. ??For patients who have questions please contact the health health care legal assistant that requested your imaging first. ? Narrative 02/19/2021 10:20 PM EDT EXAMINATION: XR CHEST PA AND LATERAL (GENERIC) CLINICAL HISTORY: History of HFpEF, recent ERCP c/b pancreatitis with persistent dyspnea TECHNIQUE: PA and lateral views of the chest COMPARISON: Chest radiograph 02/08/2021 FINDINGS: There are mild low bilateral lung volumes. Interval decreased pulmonary vascular congestion. No focal consolidation. No pneumothorax. No pleural effusions. Unchanged size of the cardiomediastinal silhouette and bilateral russ. No acute osseous findings. Procedure Note Darren Bull MD - 02/19/2021 EXAMINATION: XR CHEST PA AND LATERAL (GENERIC) CLINICAL HISTORY: History of HFpEF, recent ERCP c/b pancreatitis withpersistent dyspnea TECHNIQUE: PA and lateral views of the chest COMPARISON: Chest radiograph 02/08/2021 FINDINGS: There are mild low bilateral lung volumes. Interval decreased pulmonaryvascular congestion. No focal consolidation. No pneumothorax. No pleuraleffusions. Unchanged size of the cardiomediastinal silhouette and bilateral russ. Noacute osseous findings. IMPRESSION 1. No acute cardiopulmonary process. 2. Decreased pulmonary vascular congestion. Thank you for letting us participate in the care of this patient. If youare a health care provider and have any questions regarding this report,please contact the number below. For patients who have questions please contactthe health health care legal assistant that requested your imaging first. Tha Bella MD IMG DX ORDERABLES * COVID-19 PCR (02/19/2021 9:37 PM EDT) SARS-CoV-2 RNA PCR Not Detected Not Detected [facility] Comment: This result should be interpreted in combination with the clinical observations, patient history and epidemiological information. For testing of asymptomatic individuals, assay performance characteristics and clinical utility have not been evaluated. Testing for SARS-CoV-2 (Severe acute respiratory syndrome coronavirus 2, formerly known as 2019 novel coronavirus or 2019-nCoV) to aid in the diagnosis of COVID-19 is performed using the Simplexa COVID-19 Direct Assay by [employer] as authorized by the FDA issued Emergency Use Authorization (EUA). This assay is intended for In-vitro Diagnostic (IVD) use with nasopharyngeal swabs collected from individuals meeting the CDC criteria for testing. The assay is performed based on the instructions for use and additional guidance provided by the FDA. Testing is performed in the Microbiology Laboratory within the Department of Pathology and Laboratory Medicine at [facility], certified under the Clinical Laboratory Improvement Amendments of 1988 (CLIA), 42 U.S.C. section 263a, to perform high complexity tests. Assay performance has been verified according to clinical laboratory regulatory requirements. Test results are provided above. A result of Not Detected indicates that the viral RNA target is not present but does not preclude SARS-CoV-2 infection. False negative results may occur if a specimen is improperly collected, transported or handled; if amplification inhibitors are present; or if inadequate numbers of viral particles are present in the specimen. A result of Detected suggests a current or recent infection and the patient is presumed to be infected. Positive and negative predictive values for this test are highly dependent on disease prevalence. A result of Invalid indicates the inability to conclusively determine the presence or absence of SARS-CoV-2 RNA in the sample which can be due to a variety of factors. Recollection is recommended in the case of an invalid result. CDC COVID-19 criteria for testing on human specimens and clinical management guidance information are available at the CDC Coronavirus Disease 2019 (COVID-19) webpage under Information for Healthcare Professionals (https://www.cdc.gov/coronavirus/2019-ncov/hcp/index.html). Additional information about this and other EUA tests can be found in provider and patient fact sheets at the following FDA website: https://www.fda.gov/medical-devices/emqqtbrzbmr-vwromwp-2447-oclwc-81-jzwbswlko- use-a ksnczpmakzkzf-yctzggl-vtxiflg/ofbuo-szewgmlipyc-riws SARS-CoV-2 Source [employer] Sw[employer] [facility] Nasopharyngeal swab (specimen) 02/19/2021 9:37 PM EDT 02/19/2021 10:54 PM EDT Comment:Symptoms->Surveillan ce Narrative Resulting Agency Comment Spec In Lab Tha Bella MD MICROBIOLOGY - GENER AL ORDERABLES [facility] [place] [address] * (ABNORMAL) Differential, Automated (02/19/2021 9:05 PM EDT) Neutrophils % 74.1 % [facility] Neutr Abs (ANC) 11.78(H) 1.70 - 6.10 x10(3)/mc L [facility] Lymphocytes % 17.9 % [facility] Lymphocytes Abs 2.8 0.9 - 3.2 x10(3)/mc L [facility] Monocytes % 6.4 % [facility] Monocyte Abs 1.0(H) 0.3 - 0.9 x10(3)/mc L [facility] Eosinophils % 0.7 % [facility] Eosinophils Abs 0.1 0.0 - 0.4 x10(3)/mc L [facility] Basophils % 0.3 % [facility] Basophils Abs 0.0 0.0 - 0.1 x10(3)/mc L [facility] Immature Gran % 0.60 % [facility] Comment: Immature granulocytes(IG's)percentage and absolute count will include metamyelocytes, myelocytes, and promyelocytes. Blood smears from CBCs yielding IG's will be scanned manually for concordance. If this scan disagrees with the automated IG or if promyelocytes are noted, a manual differential will be performed. Anya Gran Abs 0.10(H) 0.00 - 0.04 x10(3)/mc L [facility] Blood specimen (specimen) 02/19/2021 9:05 PM EDT 02/19/2021 9:13 PM EDT Narrative Resulting Agency Comment Spec In Lab Wan Trinidad MD HEMATOLOGY ORDERABLE S [facility] [place] [address] * (ABNORMAL) Hemogram (02/19/2021 9:05 PM EDT) WBC 15.9(H) 4.0 - 9.5 x10(3)/[facility] LABORATORY RBC 2.46(L) 4.00 - 5.21 x10(6)/[facility] LABORATORY Hemoglobin 7.4(L) 11.7 - 15.5 gm/dL [facility] Hematocrit 23.6(L) 35.7 - 45.8 % [facility] MCV 95.9(H) 82.6 - 94.4 fL [facility] MCH 30.1 27.1 - 32.0 pg [facility] MCHC 31.4(L) 31.7 - 35.0 gm/dL [facility] Platelets 343 145 - 357 x10(3)/[facility] LABORATORY RDWSD 50.5(H) 37.0 - 46.0 fL [facility] RDWCV 14.6(H) 11.5 - 14.1 % [facility] MPV 10.3 7.6 - 12.9 fL [facility] nRBC % Auto 0.0 % [facility] nRBC Abs Auto 0.000 0.000 - 0.000 x10(3)/mcL [facility] Blood specimen (specimen) 02/19/2021 9:05 PM EDT 02/19/2021 9:13 PM EDT Narrative Resulting Agency Comment Spec In Lab Wan Trinidad MD HEMATOLOGY ORDERABLE S Performing Organization Address City/[facility]/ZIP Co de Phone Number [facility] [place] [address] * Troponin (02/19/2021 9:05 PM EDT) Troponin-T <0.01 0.00 - 0.00 ng/mL [facility] Comment: The 99th percentile for Troponin T is less than 0.01 ng/mL, any detectable cTnT concentration using this assay should be considered elevated. According to the third universal definition of myocardial infarction the following criteria with a clinical presentation consistent with acute myocardial ischemia meets the diagnosis for a myocardial infarction (VA). Detection of a rise and/or fall of cTnT, with at least one value greater than the 99th percentile (> or = 0.01) and with at least one of the following ?? Symptoms of ischemia ?? New or presumed new significant TG-nqnmmyx-Z wave (ST-T) changes or new left bundle [...] additional sample may be indicated. Reference: Third [place] Definition of Myocardial Infarction. Journal of the [place] [employer] 2012;60:1581-98 Blood specimen (specimen) 02/19/2021 9:05 PM EDT 02/19/2021 9:13 PM EDT Narrative Resulting Agency Comment Spec In Lab Tha Bella MD CHEMISTRY ORDERABLES Performing Organization Address [facility]/ZIP Co de Phone Number [facility] [place] [address] * Lipase (02/19/2021 9:05 PM EDT) Lipase 27 0 - 60 unit/L [facility] Blood specimen (specimen) 02/19/2021 9:05 PM EDT 02/19/2021 9:13 PM EDT Narrative Resulting Agency Comment Spec In Lab Tha Bella MD CHEMISTRY ORDERABLES [facility] [place] [address] * (ABNORMAL) pro-Brain Natriuretic Peptide (02/19/2021 9:05 PM EDT) ProBNP 1,714(H) <=124 pg/mL [facility] Blood specimen (specimen) 02/19/2021 9:05 PM EDT 02/19/2021 9:13 PM EDT Narrative Resulting Agency Comment Spec In Lab Tha Bella MD CHEMISTRY ORDERABLES Performing Organization Address [facility]/ZIP Co de Phone Number [facility] [place] [address] * APTT (02/19/2021 9:05 PM EDT) PTT 33 25 - 37 sec [facility] Comment: The PTT is NOT appropriate for heparin monitoring. Use the Anti-Xa level for heparin monitoring (HEP UFH) or LMWH monitoring (HEP LMW). A PTT less than 37 seconds generally indicates adequate hemostasis. Blood specimen (specimen) 02/19/2021 9:05 PM EDT 02/19/2021 9:13 PM EDT Narrative Resulting Agency Comment Spec In Lab Tha Bella MD HEMATOLOGY ORDERABLE S Performing Organization Address City/[facility]/ZIP Co de Phone Number [facility] [place] [address] * (ABNORMAL) Prothrombin Time (02/19/2021 9:05 PM EDT) PT 15.1(H) 9.4 - 12.5 sec [facility] INR 1.3 [facility] Comment: An INR <2.0 indicates [...] be appropriate depending on clinical circumstances. Blood specimen (specimen) 02/19/2021 9:05 PM EDT 02/19/2021 9:13 PM EDT Narrative Resulting Agency Comment Spec In Lab Tha Bella MD HEMATOLOGY ORDERABLE S Performing Organization Address [facility] Co de Phone Number [facility] [place] [address] * (ABNORMAL) Hepatic Function Panel (02/19/2021 9:05 PM EDT) Total Protein 8.0 6.1 - 8.0 gm/dL [facility] Albumin 2.9(L) 3.2 - 5.2 gm/dL [facility] AST 28 0 - 30 unit/L [facility] ALT 23 0 - 30 unit/L [facility] Alk Phos 310(H) 35 - 105 unit/L [facility] Total Bilirubin 0.4 0.2 - 1.3 mg/dL [facility] Bili, Direct 0.2 0.0 - 0.3 mg/dL [facility] Blood specimen (specimen) 02/19/2021 9:05 PM EDT 02/19/2021 9:13 PM EDT Narrative Resulting Agency Comment Spec In Lab Tha Bella MD CHEMISTRY ORDERABLES Performing Organization Address [facility] Co de Phone Number [facility] [place] [address] * Phosphorus (02/19/2021 9:05 PM EDT) Phosphorus 4.1 2.5 - 4.5 mg/dL [facility] Blood specimen (specimen) 02/19/2021 9:05 PM EDT 02/19/2021 9:13 PM EDT Narrative Resulting Agency Comment Spec In Lab Tha Bella MD CHEMISTRY ORDERABLES Performing Organization Address City/[facility]/ZIP Co de Phone Number [facility] [place] [address] * Magnesium (02/19/2021 9:05 PM EDT) [facility] Magnesium 0.87 0.69 - 1.07 mmol/L [facility] Blood specimen (specimen) 02/19/2021 9:05 PM EDT 02/19/2021 9:13 PM EDT Narrative Resulting Agency Comment Spec In Lab Tha Bella MD CHEMISTRY ORDERABLES Performing Organization Address [facility]/ZIP Co de Phone Number [facility] [place] [address] * Calcium (02/19/2021 9:05 PM EDT) Pathologist [facility] Calcium 9.4 8.5 - 10.5 mg/dL [facility] Blood specimen (specimen) 02/19/2021 9:05 PM EDT 02/19/2021 9:13 PM EDT Narrative Resulting Agency Comment Spec In Lab Tha Bella MD CHEMISTRY ORDERABLES Performing Organization Address [facility]/ZIP Co de Phone Number [facility] [facility] [place] [address] * (ABNORMAL) Basic Metabolic Panel (non-fasting) (02/19/2021 9:05 PM EDT) Glucose Lvl 125 65 - 199 mg/dL [facility] Comment:Diabetes: >=200 mg/d L plus symptoms BUN 31(H) 8 - 18 mg/dL [facility] Creatinine 1.44(H) 0.70 - 1.20 mg/dL [facility] Sodium 134(L) 135 - 145 mmol/L [facility] Potassium 4.3 3.5 - 5.0 mmol/L [facility] Comment: Please note: ??Patients with WBC >100,000 may have falsely elevated Potassium levels. ??For accurate Potassium quantification in these patients send serum separator tube (gold top) for subsequent determinations. ??Contact the Clinical Chemistry Laboratory if there are any questions. Chloride 97(L) 98 - 107 mmol/L [facility] CO2 27 22 - 31 mmol/L [facility] Anion Gap 10 5 - 15 mmol/L [facility] Calcium 9.4 8.5 - 10.5 mg/dL [facility] Estimated GFR 37(L) >=60 mL/min/1. 73 m?? [facility] Comment: This patient? s estimated glomerular filtration rate (eGFR) is between 37 mL/min/1.73 m2 (patients with less muscle mass) and 43 mL/min/1.73 m2 (patients with more muscle mass) [...] and symptoms in addition to eGFR. Blood specimen (specimen) 02/19/2021 9:05 PM EDT 02/19/2021 9:13 PM EDT Narrative Resulting Agency Comment Spec In Lab Tha Bella MD CHEMISTRY ORDERABLES [facility] [place] [address] * EKG 12 Lead (02/19/2021 8:26 PM EDT) Ventricular rate 92 BPM MUSE SYSTEM Atrial Rate 92 BPM MUSE SYSTEM P-R Interval 216 ms MUSE SYSTEM QRS Duration 82 ms MUSE SYSTEM Q-T Interval 366 ms MUSE SYSTEM QTC Calculated (Bezet) 452 ms MUSE SYSTEM Calculated P [place] 34 degrees MUSE SYSTEM Calculated R [place] 28 degrees MUSE SYSTEM Calculated T [place] -170 degrees MUSE SYSTEM INTERPRETATION Sinus rhythm with 1st degree A-V block T wave abnormality, consider inferior ischemia T wave abnormality, consider anterolateral ischemia Abnormal ECG When compared with ECG of 13-FEB-2021 10:01, T wave inversion more evident in Anterolateral leads Confirmed by MD William, Diego Simmons ([id number]) on 02/20/2021 10:04:55 AM MUSE SYSTEM 02/19/2021 8:26 PM EDT 02/20/2021 10:04 AM EDT Tha Bella MD ECG ORDERABLES Performing Organization Address City/[facility]/ZIP Co de Phone Number MUSE SYSTEM * POCT Glucose (02/19/2021 8:19 PM EDT) Pathologist [facility] POC Glucose 129 65 - 199 mg/dL [facility] Comment: Supplemental ranges: <140 mg/dL before meals <180 mg/dL all other times of the day Blood specimen (specimen) 02/19/2021 8:19 PM EDT 02/19/2021 8:19 PM EDT Tha Bella MD POINT OF CARE TEST O RDERABLES Performing Organization Address City/[facility]/ZIP Co de Phone Number [facility] [place] [address] documented in this encounter Visit Diagnoses Diagnosis Pancreatic fluid collection with possible abscess- Primary Acute pancreatitis Gastroesophageal reflux disease with esophagitis without hemorrhage Chronic pancreatitis, unspecified pancreatitis type Pancreatic pseudocyst Cyst and pseudocyst of pancreas RUQ pain Abdominal pain, right upper quadrant Pancreatic abscess Acute pancreatitis Idiopathic acute pancreatitis with infected necrosis HFrEF (heart failure with reduced ejection fraction) [id number] kidney injury Acute kidney failure, unspecified Anemia of chronic disease Anemia of other chronic disease Acute blood loss anemia Acute posthemorrhagic anemia Chronic pancreatitis, unspecified pancreatitis type Pancreatic pseudocyst Cyst and pseudocyst of pancreas RUQ pain Abdominal pain, right upper quadrant Pancreatic fluid collection with possible abscess Acute pancreatitis Idiopathic acute pancreatitis with infected necrosis Left lumbar radiculopathy Thoracic or lumbosacral neuritis or radiculitis, unspecified documented in this encounter Admitting Diagnoses Diagnosis Pancreatitis Acute pancreatitis documented in this encounter Administered Medications Inactive Administered Medications - up to 3 most recent administrations Medication Order MAR Action Action Date Dose Rate Site acetaminophen (Tylenol) tablet 650 mg 650 mg, Oral, EVERY 8 HOURS PRN, Starting on Wed02/19/21 at 2344, Until Wed02/21/21 at 1859, Pain, Maximum dose of acetaminophen is 4000 mg from all sources in 24 hours. When ordered for pain, acetaminophen should be given even when other ordered pain medications are indicated. , Routine Given 02/19/2021 11:59 PM EDT 650 mg aspirin chewable tablet 81 mg 81 mg, Oral, DAILY, First dose on Wed02/20/21 at 0900, Until Discontinued, Routine Given 02/21/2021 8:18 AM EDT 81 mg Given 02/20/2021 8:31 AM EDT 81 mg atorvastatin (Lipitor) tablet 40 mg 40 mg, Oral, EVERY EVENING, First dose on Wed02/20/21 at 1700, Until Discontinued, Routine Given 02/20/2021 5:47 PM EDT 40 mg clopidogreL (Plavix) tablet 75 mg 75 mg, Oral, DAILY, First dose on Wed02/21/21 at 0900, Until Discontinued, Routine Given 02/21/2021 8:19 AM EDT 75 mg dextrose 10% infusion 250 mL, at 1,000 mL/hr, Intravenous, EVERY 30 MIN PRN, Starting on Wed02/19/21 at 2010, Until Wed02/21/21 at 1859, For BG 50-70 mg/dL: Oral treatment preferred:?? [...] 30 mg, Oral, DAILY, First dose on Wed02/20/21 at 0900, Until Discontinued, Routine Given 02/21/2021 8:19 AM EDT 30 mg Given 02/20/2021 8:31 AM EDT 30 mg fentaNYL (pf) (50 mcg/mL) multi-dose injection 25-50 mcg 25-50 mcg, Intravenous, EVERY 3 MIN PRN, Starting on Jodee 02/20/21 at 1114, Until Jodee 02/20/21 at 1303, Pain, per unit protocol, - Start dose 50 mcg (reduce dose to 25 mcg if history of sedation sensitivity). - Titration dose 25-50 mcg IV, (based on patient response) every 3 minutes PRN, to maintain procedural pain less than 2 per pain Scale. Maximum dose: 50 mcg/dose, 250 mcg/hour For use in Interventional Radiology (IR) only for procedural sedation with direct provider supervision and verbal order., Angio/IR (Intra-Procedure), Routine Given 02/20/2021 12:24 PM EDT 25 mcg Given 02/20/2021 12:17 PM EDT 25 mcg Given 02/20/2021 12:00 PM EDT 25 mcg gabapentin (Neurontin) capsule 100 mg 100 mg, Oral, DAILY AT NOON, First dose on Wed02/20/21 at 1200, Until Discontinued, Routine Given 02/21/2021 11:52 AM EDT 100 mg Given 02/20/2021 1:31 PM EDT 100 mg gabapentin (Neurontin) capsule 200 mg 200 mg, Oral, 2 TIMES DAILY, First dose on Wed02/19/21 at 2100, Until Discontinued, Routine Given 02/21/2021 8:18 AM EDT 200 mg Given 02/20/2021 8:23 PM EDT 200 mg Given 02/20/2021 8:31 AM EDT 200 mg glucagon (Glucagen) (1 mg/mL) injection solution 1 mg 1 mg, Intramuscular, EVERY 30 MIN PRN, Starting on Wed02/19/21 at 2009, Until Wed02/21/21 at 1859, Low blood sugar, For BG 50-70 mg/dL: [...] Buccal, EVERY 30 MIN PRN, Starting on Wed02/19/21 at 2009, Until Wed02/21/21 at 1859, Low blood sugar, For BG 50-70 mg/dL: [...] tube = 37.5 grams., Routine heparin (porcine) (5,000 units/1 mL) subcutaneous injection 5,000 Units 5,000 Units, Subcutaneous, EVERY 8 HOURS SCHEDULED, First dose on Wed02/19/21 at 2200, Until Discontinued, Routine Given 02/21/2021 4:07 PM EDT 5,000 Unit s Given 02/21/2021 5:37 AM EDT 5,000 Units Given 02/20/2021 10:17 PM EDT 5,000 Units HYDROmorphone (Dilaudid) (1 mg/mL) injection syringe 0.4 mg 0.4 mg, Intravenous, EVERY 2 HOURS PRN, Starting on Wed02/19/21 at 2010, Until Wed02/21/21 at 1859, Pain, Routine Given 02/21/2021 4:29 AM EDT 0.4 mg Given 02/20/2021 10:17 PM EDT 0.4 mg Given 02/20/2021 5:51 PM EDT 0.4 mg insulin lispro (HumaLOG;Admelog) (100 unit/mL) subcutaneous injection vial 1-4 Units 1-4 Units, Subcutaneous, EVERY 4 HOURS SCHEDULED, First dose on Wed02/19/21 at 2100, Until Discontinued, CORRECTION BOLUS [1-4 Units] Sensitive Sliding Scale: Correction factor 40 (1 unit of insulin [...] DO NOT hold if NPO, unless specifically told to do so. Per Blood Glucose Monitoring Policy, re-check a BG of > 240 in 2 hours., Routine Given 02/21/2021 11:53 AM EDT 1 Units Given 02/21/2021 8:25 AM EDT 1 Units Given 02/20/2021 8:24 PM EDT 1 Units lidocaine (Xylocaine) 1% (10 mg/mL) injection 10 mg 10 mg, Subcutaneous, ONCE, 1 dose, On Jodee 02/20/21 at 1200, For use in Interventional Radiology (IR) only for procedure with direct provider supervision and verbal order., Angio/IR (Intra-Procedure), Routine Given 02/20/2021 12:19 PM EDT 10 mg lidocaine (Xylocaine) 1% (10 mg/mL) injection 3 mg 3 mg (0.3 mL), Subcutaneous, ONCE PRN, 1 dose, Starting on Jodee 02/20/21 at 1114, Until Wed02/21/21 at 1859, for discomfort with PIV insertion, Routine magnesium sulfate 2 g in sterile water 50 mL infusion 2 g, Intravenous, ONCE, 1 dose, On Wed02/21/21 at 0815, Administer over 120 Minutes New Bag 02/21/2021 8:19 AM EDT 2 g 25 mL/hr metoprolol tartrate (Lopressor) tablet 12.5 mg 12.5 mg, Oral, EVERY 6 HOURS SCHEDULED, First dose on Jodee 02/20/21 at 0000, Until Discontinued, Routine Given 02/21/2021 11:52 AM EDT 12.5 mg Given 02/21/2021 5:37 AM EDT 12.5 mg Given 02/20/2021 11:53 PM EDT 12.5 mg metroNIDAZOLE (Flagyl) tablet 500 mg 500 mg, Oral, 3 TIMES DAILY, First dose on Jodee 02/20/21 at 1615, Until Discontinued, Routine, Indication for (Active or Suspected): Anaerobic infection-GI/Intrabdominal Given 02/21/2021 4:07 PM EDT 500 mg Given 02/21/2021 8:19 AM EDT 500 mg Given 02/20/2021 8:24 PM EDT 500 mg ondansetron (pf) (Zofran) (2 mg/mL) injection 4 mg 4 mg, Intravenous, EVERY 8 HOURS PRN, Starting on Wed02/19/21 at 2010, Until Wed02/21/21 at 1859, Nausea, Start with 4mg and if ineffective in 30 minutes, give an additional 4mg If multiple antiemetics are ordered, give ondansetron first. Given 02/21/2021 4:35 AM EDT 4 mg pantoprazole EC (Protonix) tablet 40 mg 40 mg, Oral, DAILY, First dose on Wed02/20/21 at 0900, Until Discontinued, DO NOT CRUSH OR OPEN, Routine Given 02/21/2021 8:19 AM EDT 40 mg Given 02/20/2021 8:31 AM EDT 40 mg piperacillin-tazobactam (Zosyn) 3.375 g vial attach to sodium chloride 0.9% 50 mL Mini-Bag Plus 3.375 g, Intravenous, EVERY 8 HOURS, First dose on Wed02/19/21 at 2100, Until Discontinued, Administer over 4 Hours, Warning Vesicant/Irritant Medication Do not administer or Y-site with lactated ringers., Indication for (Active or Suspected): GI/Intra-abdominal New Bag 02/20/2021 1:30 PM EDT 3.375 g 12.5 mL/hr New Bag 02/20/2021 5:58 AM EDT 3.375 g 12.5 mL/hr New Bag 02/19/2021 9:03 PM EDT 3.375 g 12.5 mL/hr polyethylene glycoL (Miralax) packet 17 g 17 g, Oral, 2 TIMES DAILY PRN, Starting on Wed02/21/21 at 0851, Until Wed02/21/21 at 1859, Constipation, Routine Given 02/21/2021 11:54 AM EDT 17 g sodium chloride 0.9 % (flush) flush 5 mL 5 mL, Intravenous, 2 TIMES DAILY, First dose on Wed02/19/21 at 2100, Until Discontinued, Routine Given 02/21/2021 8:25 AM EDT 10 mLs Given 02/20/2021 8:31 AM EDT 5 mLs Given 02/19/2021 9:07 PM EDT 5 mLs sodium chloride 0.9 % (flush) flush 5 mL 5 mL, Intravenous, 2 TIMES DAILY, First dose on Wed02/20/21 at 1200, Until Discontinued, Routine Given 02/21/2021 8:25 AM EDT 10 mLs Given 02/20/2021 8:24 PM EDT 5 mLs Given 02/20/2021 1:32 PM EDT 5 mLs sodium chloride 0.9 % (flush) flush 5-20 mL 5-20 mL, Intravenous, EVERY 1 MIN PRN, Starting on Jodee 02/20/21 at 1114, Until Wed02/21/21 at 1859, flush, Flush pertains to all indwelling lines. Flush per protocol found in the job aid using the link provided on this medication record., Routine sodium chloride 0.9% infusion 80 mL/hr, Intravenous, CONTINUOUS, Starting on Wed02/19/21 at 2130, Until Wed02/19/21 at 2152 New Bag 02/19/2021 9:28 PM EDT 80 mL/hr 80 mL/hr sodium chloride 0.9% infusion 1,000 mL, at 100 mL/hr, Intravenous, CONTINUOUS, Starting on Wed02/20/21 at 1200, Until Wed02/20/21 at 1303, Angio/IR (Day of Procedure) New Bag 02/20/2021 12:00 PM EDT 1,000 mLs 100 mL/hr sodium chloride 5 % ophthalmic ointment Both Eyes, 2 TIMES DAILY PRN, Dry Eyes, Starting on Wed02/20/21 at 1805, Until Wed02/21/21 at 1859 torsemide (Demadex) tablet 20 mg 20 mg, Oral, DAILY, First dose on Wed02/21/21 at 0900, Until Discontinued, Routine Given 02/21/2021 8:19 AM EDT 20 mg documented in this encounter Active and Recently Administered Medications Times are shown in EDT. Scheduled Medication Order 02/19/2021 02/20/2021 02/21/2021 aspirin chewable tablet 81 mg 81 mg, Oral, DAILY, First dose on Wed02/20/21 at 0900, Until Discontinued, Routine 0831 (Given - Provider: Veronika Sifuentes, RODERICK) 0818 (Given - Provider: Ghazala Smith RN) atorvastatin (Lipitor) tablet 40 mg 40 mg, Oral, EVERY EVENING, First dose on Jodee 02/20/21 at 1700, Until Discontinued, Routine 1747 (Given - Provider: Veronika Sifuentes RN) clopidogreL (Plavix) tablet 75 mg 75 mg, Oral, DAILY, First dose on Wed02/21/21 at 0900, Until Discontinued, Routine 0819 (Given - Provider: Ghazala Smith, RODERICK) DULoxetine DR (Daalta) capsule 30 mg 30 mg, Oral, DAILY, First dose on Wed02/20/21 at 0900, Until Discontinued, Routine 0831 (Given - Provider: Veronika Sifuentes RN) 0819 (Given - Provider: Ghazala Smith, RODERICK) gabapentin (Neurontin) capsule 100 mg 100 mg, Oral, DAILY AT NOON, First dose on Wed02/20/21 at 1200, Until Discontinued, Routine 1331 (Given - Provider: Veronika Sifuentes RN) 1152 (Given - Provider: Ghazala Smith, RODERICK) gabapentin (Neurontin) capsule 200 mg 200 mg, Oral, 2 TIMES DAILY, First dose on Wed02/19/21 at 2100, Until Discontinued, Routine 2103 (Given - Provider: Saumya Valenzuela RN) 0831 (Given - Provider: Veronika Sifuentes RN)2023 (Given - Provider: Eloisa Garcia RN) 0818 (Given - Provider: Ghazala Smith, RODERICK) heparin (porcine) (5,000 units/1 mL) subcutaneous injection 5,000 Units 5,000 Units, Subcutaneous, EVERY 8 HOURS SCHEDULED, First dose on Wed02/19/21 at 2200, Until Discontinued, Routine 2123 (Given - Provider: Saumya Valenzuela RN) 0600 (Hold - Provider: Saumya Valenzuela RN - Reason: Per MD Order - Comment: Held for procedure)1546 (Given - Provider: Veronika Sifuentes RN)2217 (Given - Provider: Eloisa Garcia, RODERCIK) 0537 (Given - Provider: Eloisa Garcia, RODERICK)1607 (Given - Provider: Ghazala Smith, RODERICK) insulin lispro (HumaLOG;Admelog) (100 unit/mL) subcutaneous injection vial 1-4 Units(Linked Group 1) 1-4 Units, Subcutaneous, EVERY 4 HOURS SCHEDULED, First dose on Wed02/19/21 at 2100, Until Discontinued, CORRECTION BOLUS [1-4 Units] Sensitive Sliding Scale: Correction factor 40 (1 unit of insulin [...] DO NOT hold if NPO, unless specifically told to do so. Per Blood Glucose Monitoring Policy, re-check a BG of > 240 in 2 hours., Routine 2100 (Not Given - Provider: Saumya Valenzuela RN - Reason: Order parameters not met - Comment: BG 129)2359 (Given - Provider: Saumya Valenzuela RN) 0400 (Not Given - Provider: Saumya Valenzuela RN - Reason: Contraindicated - Comment: BG 102)0800 (Not Given - Provider: Veronika Sifuentes RN - Reason: Order parameters not met)1200 (Not Given - Provider: Veronika Sifuentes RN - Reason: Order parameters not met)1600 (Not Given - Provider: Veronika Sifuentes RN - Reason: Order parameters not met)2024 (Given - Provider: Eloisa Garcia RN - Comment: [id number] (Not Given - Provider: Eloisa Garcia RN - Reason: Order parameters not met - Comment: [id number]) 0314 (Not Given - Provider: Eloisa Garcia RN - Reason: Order parameters not met - Comment: [id number] (Given - Provider: Ghazala Smith RN - Comment: BG 161)1153 (Given - Provider: Ghazala Smith RN - Comment: BG 200)1600 (Due) lidocaine (Xylocaine) 1% (10 mg/mL) injection 10 mg (COMPLETED) 10 mg, Subcutaneous, ONCE, 1 dose, On Wed02/20/21 at 1200, For use in Interventional Radiology (IR) only for procedure with direct provider supervision and verbal order., Angio/IR (Intra-Procedure), Routine 1219 (Given - Provider: Mauro Thomas, DO) magnesium sulfate 2 g in sterile water 50 mL infusion (COMPLETED) 2 g, Intravenous, ONCE, 1 dose, On Wed02/21/21 at 0815, Administer over 120 Minutes 0819 (New Bag - Provider: Ghazala Smith, RODERICK)1019 (Stopped - Provider: Ghazala Smith, RODERICK) metoprolol tartrate (Lopressor) tablet 12.5 mg 12.5 mg, Oral, EVERY 6 HOURS SCHEDULED, First dose on Wed02/20/21 at 0000, Until Discontinued, Routine 2359 (Given - Provider: Saumya Valenzuela, RODERICK) 0620 (Given - Provider: Saumya Valenzuela, RODERICK)1330 (Given - Provider: Veronika Sifuentes, RODERICK)1752 (Given - Provider: Veronika Sifuentes, RODERICK)2353 (Given - Provider: Eloisa Garcia, RODERICK) 0537 (Given - Provider: Eloisa Garcia, RODERICK)1152 (Given - Provider: Ghazala Smith, RODERICK) metroNIDAZOLE (Flagyl) tablet 500 mg 500 mg, Oral, 3 TIMES DAILY, First dose on Wed02/20/21 at 1615, Until Discontinued, Routine, Indication for (Active or Suspected): Anaerobic infection-GI/Intrabdomi nal 1547 (Given - Provider: Veronika Sifuentes, RODERICK)2024 (Given - Provider: Eloisa Garcia, RODERICK) 0819 (Given - Provider: Ghazala Smith, RODERICK)1607 (Given - Provider: Ghazala Smith, RODERICK) pantoprazole EC (Protonix) tablet 40 mg 40 mg, Oral, DAILY, First dose on Jodee 02/20/21 at 0900, Until Discontinued, DO NOT CRUSH OR OPEN, Routine 0831 (Given - Provider: Veronika Sifuentes RN) 0819 (Given - Provider: Ghazala Smith, RODERICK) piperacillin-tazobactam (Zosyn) 3.375 g vial attach to sodium chloride 0.9% 50 mL Mini-Bag Plus (CANCELED) 3.375 g, Intravenous, EVERY 8 HOURS, First dose on Wed02/19/21 at 2100, Until Discontinued, Administer over 4 Hours, Warning Vesicant/Irritant Medication Do not administer or Y-site with lactated ringers., Indication for (Active or Suspected): GI/Intra-abdominal 210 (New Bag - Provider: Saumya Valenzuela, RODERICK) 0210 (Stopped - Provider: Floridalma Bui RN)0558 (New Bag - Provider: Saumya Valenzuela, RODERICK)0958 (Stopped - Provider: Veronika Sifuentes RN)1330 (New Bag - Provider: Veronika Sifuentes, RODERICK)1626 (Stopped - Provider: Veronika Sifuentes RN) sodium chloride 0.9 % (flush) flush 5 mL 5 mL, Intravenous, 2 TIMES DAILY, First dose on Wed02/19/21 at 2100, Until Discontinued, Routine 210 (Given - Provider: Saumya Valenzuela RN) 0831 (Given - Provider: Veronika Sifuentes RN)2100 (Not Given - Provider: Eloisa Garcia RN - Reason: Contraindicated - Comment: double order) 0825 (Given - Provider: Ghazala Smith RN) sodium chloride 0.9 % (flush) flush 5 mL 5 mL, Intravenous, 2 TIMES DAILY, First dose on Jodee 02/20/21 at 1200, Until Discontinued, Routine 1332 (Given - Provider: Veronika Sifuentes RN)202 (Given - Provider: Eloisa Garcia, RODERICK) 0825 (Given - Provider: Ghazala Smith, RODERICK) torsemide (Demadex) tablet 20 mg 20 mg, Oral, DAILY, First dose on Wed02/21/21 at 0900, Until Discontinued, Routine 0819 (Given - Provider: Ghazala Smith RN) Continuous Medication Order 02/19/2021 02/20/2021 02/21/2021 sodium chloride 0.9% infusion (CANCELED) 80 mL/hr, Intravenous, CONTINUOUS, Starting on Wed02/19/21 at 2130, Until Wed02/19/21 at 2152 2128 (New Bag - Provider: Saumya Valenzuela, RODERICK)2242 (Stopped - Provider: Saumya Valenzuela RN) sodium chloride 0.9% infusion (CANCELED) 1,000 mL, at 100 mL/hr, Intravenous, CONTINUOUS, Starting on Jodee 02/20/21 at 1200, Until Jodee 02/20/21 at 1303, Angio/IR (Day of Procedure) 1200 (New Bag - Provider: Alison Reyes RN) PRN Medication Order 02/19/2021 02/20/2021 02/21/2021 acetaminophen (Tylenol) tablet 650 mg 650 mg, Oral, EVERY 8 HOURS PRN, Starting on Wed02/19/21 at 2344, Until Wed02/21/21 at 1859, Pain, Maximum dose of acetaminophen is 4000 mg from all sources in 24 hours. When ordered for pain, acetaminophen should be given even when other ordered pain medications are indicated. , Routine 2359 (Given - Provider: Saumya Valenzuela RN) dextrose 10% infusion(Linked Group 2) 250 mL, at 1,000 mL/hr, Intravenous, EVERY 30 MIN PRN, Starting on Wed02/19/21 at 2010, Until Wed02/21/21 at 1859, For BG 50-70 mg/dL: Oral treatment preferred:?? [...] for the duration of the active insulin. fentaNYL (pf) (50 mcg/mL) multi-dose injection 25-50 mcg (CANCELED) 25-50 mcg, Intravenous, EVERY 3 MIN PRN, Starting on Jodee 02/20/21 at 1114, Until Jodee 02/20/21 at 1303, Pain, per unit protocol, - Start dose 50 mcg (reduce dose to 25 mcg if history of sedation sensitivity). - Titration dose 25-50 mcg IV, (based on patient response) every 3 minutes PRN, to maintain procedural pain less than 2 per pain Scale. Maximum dose: 50 mcg/dose, 250 mcg/hour For use in Interventional Radiology (IR) only for procedural sedation with direct provider supervision and verbal order., Angio/IR (Intra-Procedure), Routine 1200 (Given - Provider: Alison Reyes, RN)1217 (Given - Provider: Alison Reyes, RN)1224 (Given - Provider: Alison Reyes, RN) gabapentin (Neurontin) capsule 200 mg 200 mg, Oral, NIGHTLY PRN, Starting on Wed02/19/21 at 2008, Until Wed02/21/21 at 1858, sciatic leg pain, Routine glucagon (Glucagen) (1 mg/mL) injection solution 1 mg(Linked Group 2) 1 mg, Intramuscular, EVERY 30 MIN PRN, Starting on Wed02/19/21 at 2009, Until Wed02/21/21 at 1858, Low blood sugar, For BG 50-70 mg/dL: [...] Routine glucose (GLUTOSE) 40% oral geL(Linked Group 2) 15-30 g, Buccal, EVERY 30 MIN PRN, Starting on Wed02/19/21 at 2009, Until Wed02/21/21 at 185, Low blood sugar, For BG 50-70 mg/dL: [...] weight of tube = 37.5 grams., Routine HYDROmorphone (Dilaudid) (1 mg/mL) injection syringe 0.4 mg 0.4 mg, Intravenous, EVERY 2 HOURS PRN, Starting on Wed02/19/21 at 2009, Until Wed02/21/21 at 1859, Pain, Routine 0621 (Given - Provider: Saumya Valenzuela, RN)0952 (Given - Provider: Veronika Siufentes, RN)1547 (Given - Provider: Veronika Sifuentes, RN)1751 (Given - Provider: Veronika Sifuentes, RN)2217 (Given - Provider: Eloisa Garcia, RODERICK) 0429 (Given - Provider: Eloisa Garcia, RODERICK) lidocaine (Xylocaine) 1% (10 mg/mL) injection 3 mg 3 mg (0.3 mL), Subcutaneous, ONCE PRN, 1 dose, Starting on Wed02/19/21 at 2009, Until Wed02/21/21 at 1859, for discomfort with PIV insertion, Routine lidocaine (Xylocaine) 1% (10 mg/mL) injection 3 mg 3 mg (0.3 mL), Subcutaneous, ONCE PRN, 1 dose, Starting on Wed02/20/21 at 1114, Until Wed02/21/21 at 1859, for discomfort with PIV insertion, Routine ondansetron (pf) (Zofran) (2 mg/mL) injection 4 mg 4 mg, Intravenous, EVERY 8 HOURS PRN, Starting on Wed02/19/21 at 2009, Until Wed02/21/21 at 1859, Nausea, Start with 4mg and if ineffective in 30 minutes, give an additional 4mg If multiple antiemetics are ordered, give ondansetron first. 0435 (Given - Provider: Eloisa Garcia RN) polyethylene glycoL (Miralax) packet 17 g 17 g, Oral, 2 TIMES DAILY PRN, Starting on Wed02/21/21 at 0851, Until Wed02/21/21 at 1859, Constipation, Routine 1154 (Given - Provider: Ghazala Smith RN) sodium chloride 0.9 % (flush) flush 5-20 mL 5-20 mL, Intravenous, EVERY 1 MIN PRN, Starting on Wed02/19/21 at 2009, Until Wed02/21/21 at 185, flush, Flush pertains to all indwelling lines. Flush per protocol found in the job aid using the link provided on this medication record., Routine sodium chloride 0.9 % (flush) flush 5-20 mL 5-20 mL, Intravenous, EVERY 1 MIN PRN, Starting on Wed02/20/21 at 1114, Until Wed02/21/21 at 1859, flush, Flush pertains to all indwelling lines. Flush per protocol found in the job aid using the link provided on this medication record., Routine sodium chloride 5 % ophthalmic ointment Both Eyes, 2 TIMES DAILY PRN, Dry Eyes, Starting on Wed02/20/21 at 1805, Until Wed02/21/21 at 1859 traZODone (Desyrel) tablet 25 mg 25 mg, Oral, NIGHTLY PRN, Starting on Wed02/19/21 at 2008, Until Wed02/21/21 at 1859, Sleep, Routine Linked Groups Order Group 1: POCT Fingerstick Glucose (CANCELED) Routine, EVERY 4 HOURS, First occurrence on Wed02/19/21 at 2014, Until Specified, Consider choosing EVERY 4 HOURS as frequency for: - Type 1 Diabetes - At least 24 hours after coming off an insulin drip - At least 24 hours after admission for DKA - Hypoglycemia unawareness - Patients who are otherwise unstable Select the same frequency for the correction bolus insulin order And insulin lispro (HumaLOG;Admelog) (100 unit/mL) subcutaneous injection vial 1-4 UnitsJump to med 1-4 Units, Subcutaneous, EVERY 4 HOURS SCHEDULED, First dose on Wed02/19/21 at 2100, Until Discontinued, CORRECTION BOLUS [1-4 Units] Sensitive Sliding Scale: Correction factor 40 (1 unit of insulin [...] DO NOT hold if NPO, unless specifically told to do so. Per Blood Glucose Monitoring Policy, re-check a BG of > 240 in 2 hours., Routine Group 2: glucose (GLUTOSE) 40% oral geLJump to med 15-30 g, Buccal, EVERY 30 MIN PRN, Starting on Wed02/19/21 at 2009, Until Wed02/21/21 at 1859, Low blood sugar, For BG 50-70 mg/dL: [...] Intravenous, EVERY 30 MIN PRN, Starting on Wed02/19/21 at 2009, Until Wed02/21/21 at 1859, For BG 50-70 mg/dL: Oral treatment preferred:?? [...] Intramuscular, EVERY 30 MIN PRN, Starting on Wed02/19/21 at 2009, Until Wed02/21/21 at 1859, Low blood sugar, For BG 50-70 mg/dL: [...] Routine documented in this encounter Care Teams Group Leader Relationship Specialty Start Date End Date Asia Gil DO [address] [place] [address] PCP - General Family Medicine 07/09/20 documented as of this encounter
--- OUTSIDE RECORDS SUMMARY | 2024-05-02 12:09 | XMS_ITS | Encounter Summary ---
[place] [address] Care Team Providers Care Calenderer Name Role Phone Asia Gil DO Primary Care Provider +1- [phone] Reason for Visit * Reason Onset Date Comments Other 02/14/2021 Discharge OV not es faxed to [phone] Encounter Details Date Type Department Care Team (Late st Contact Info) Description 02/14/2021 [place] [address] Desilealxeei, Heavenly Mark RN Other (Discharge OV notes faxed to [phone]) Social History Tobacco Use Types Packs/Day Years [...] 10:30 AM EDT Hospital En[place] [address] Bk Contreras MD [facility] [place] [address] 05/08/2024 10:30 AM EDT - 05/08/2024 11:00 AM EDT [place] [address] Bk Contreras MD [facility] [place] [address] INJECTION, ANESTHETIC AGENT AND/OR STEROID, TRANSFORAMINAL EPIDURAL, LUMBAR OR SACRAL, SINGLE LEVEL (WRVU 1.9) 05/12/2024 1:00 PM EDT [place] [address] Sadi Styles MD [facility] [place] [place] [address] 05/29/2024 10:15 AM EDT TH Visit (TeleHealth) [facility] [place] [phone] Natalee Sanchez, JUSTOWRITER OPERATOR [facility] [place] [place] [address] Scheduled Procedures Name Priority Associated Diagnoses Date/Ti me INJECTION, ANESTHETIC AGENT AND/OR STEROID, TRANSFORAMINAL EPIDURAL, LUMBAR OR SACRAL, SINGLE LEVEL (WRVU 1.9) Left lumbar radiculopathy 05/08/2024 10:30 AM EDT documented as of this encounter Visit Diagnoses Not on filedocumented in this encounter Care Teams Calenderer Relationship Specialty Start Date End Date Asia Gil DO [address] [place] [address] PCP - General Family Medicine 07/09/20 documented as of this encounter
--- OUTSIDE RECORDS SUMMARY | 2024-05-02 12:09 | XMS_ITS | Encounter Summary ---
[place] [address] Care Team Providers Care Dry Cleaning Checker Name Role Phone Asia Gil DO Primary Care Provider +1- [phone] Encounter Details Date Type Department Care Team (Late st Contact Info) Description 02/18/2021 External Results Emergency [place] [phone] Social History Tobacco Use Types Packs/Day Years [...] 10:30 AM EDT Hospital Encounter [place] [phone] Bk Contreras MD [facility] [place] [address] 05/08/2024 10:30 AM EDT - 05/08/2024 11:00 AM EDT Surgery [place] [address] Bk Contreras MD [facility] [place] [address] INJECTION, ANESTHETIC AGENT AND/OR STEROID, TRANSFORAMINAL EPIDURAL, LUMBAR OR SACRAL, SINGLE LEVEL (WRVU 1.9) 05/12/2024 1:00 PM EDT Office Visit Cardiology at [place] [phone] Sadi Styles MD [facility] [place] [address] 05/29/2024 10:15 AM EDT TH Visit (TeleHealth) [facility] at [place] [phone] Natalee Sanchez APRN [facility] [place] [address] Scheduled Procedures Name Priority Associated Diagnoses Date/Ti me INJECTION, ANESTHETIC AGENT AND/OR STEROID, TRANSFORAMINAL EPIDURAL, LUMBAR OR SACRAL, SINGLE LEVEL (WRVU 1.9) Left lumbar radiculopathy 05/08/2024 10:30 AM EDT documented as of this encounter Procedures Procedure Name Priority Date/Time Associated Diagnosis Comments ECG SCAN Routine 02/18/2021 documented in this encounter Results * Scan Doc: ECG (02/18/2021) Historical Provider MD MOJICA MGR SCAN EX T ORDR/RSLT documented in this encounter Visit Diagnoses Not on filedocumented in this encounter Care Teams Dry Cleaning Checker Relationship Specialty Start Date End Date Asia Gil DO [address] [place] [address] PCP - General Family Medicine 07/09/20 documented as of this encounter
--- OUTSIDE RECORDS SUMMARY | 2024-05-02 12:09 | XMS_ITS | Encounter Summary ---
Author Organization [facility] [place] [address] Care Team Providers Care Director Volunteer Services Name Role Phone Asia Gil DO Primary Care Provider +1- [phone] Reason for Visit * - Closed Specialty Diagnoses / Procedures Referred By Leonel chin Referred To Contact Procedures Film Library- Storage Only CT Abdomen & Pelvis Asia Gil DO [address] [place] [address] Referral ID Status Reason Start Date Expiration Date Visits Re quested Visits Authorized [id number] Closed 02/18/2021 02/18/2022 1 1 Encounter Details Date Type Department Care Team (Late st Contact Info) Description 02/18/2021 7:15 PM EDT Ancillary Procedure [place] [address] Asia Gil DO [address] [place], [place] [id number] Social History Tobacco Use Types Packs/Day Years [...] 10:30 AM EDT Hospital [place] [phone] Bk Contreras MD [facility] [address] 05/08/2024 10:30 AM EDT - 05/08/2024 11:00 AM EDT Surgery Pain Management [place] [phone] Bk Contreras MD [facility] [address] INJECTION, ANESTHETIC AGENT AND/OR STEROID, TRANSFORAMINAL EPIDURAL, LUMBAR OR SACRAL, SINGLE LEVEL (WRVU 1.9) 05/12/2024 1:00 PM EDT Office Visit Cardiology at [address] Sadi Styles MD [facility] [place] [address] 05/29/2024 10:15 AM EDT TH Visit (TeleHealth) [facility] at [place] [phone] Natalee Sanchez, KURTIS [facility] [address] Scheduled Procedures Name Priority Associated Diagnoses Date/Ti me INJECTION, ANESTHETIC AGENT AND/OR STEROID, TRANSFORAMINAL EPIDURAL, LUMBAR OR SACRAL, SINGLE LEVEL (WRVU 1.9) Left lumbar radiculopathy 05/08/2024 10:30 AM EDT documented as of this encounter Procedures Procedure Name Priority Date/Time Associated Diagnosis Comments FILM LIBRARY STORAGE ONLY CT ABDOMEN AND PELVIS Routine 02/18/2021 7:10 PM EDT documented in this encounter Results * Film Library- Storage Only CT Abdomen & Pelvis (02/18/2021 7:10 PM EDT) Narrative [facility] - 02/18/2021 7:10 PM EDT This exam is auto-finalizing. It's purpose is for storage only. Asia Gil DO IMG FILM LIBRARY O RDERABLES [place], [place] documented in this encounter Visit Diagnoses Not on filedocumented in this encounter Care Teams Director Volunteer Services Relationship Specialty Start Date End Date Asia Gil DO [address] [place] [address] PCP - General Family Medicine 07/09/20 documented as of this encounter
--- OUTSIDE RECORDS SUMMARY | 2024-05-02 12:09 | XMS_ITS | Encounter Summary ---
[place] [address] Care Team Providers Care Fish And Wildlife Biologist Name Role Phone Asia Gil DO Primary Care Provider +1- [phone] Encounter Details Date Type Department Care Team (Late st Contact Info) Description 02/19/2021 Telephone [place] [phone] Laci Epps MD [facility] [place] [address] Social History Tobacco Use Types Packs/Day Years [...] encounter Miscellaneous Notes * Telephone Encounter - Laci Epps - 02/19/2021 8:09 AM EDT Images from the original note were not included. DIVISION OF GASTROENTEROLOGY & HEPATOLOGY [facility] CALL Name: Toyin Coley Date: 02/19/2021 Time: 9:45 AM Referring Location: [facility] Referring Provider: Dr. 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 She was referred for completion cholecystectomy given unsuccessful endoscopic approach. She was then admitted post-procedure w/ pancreatitis for which she received IVF resuscitation. Patient elected to be discharged on 01/27. She returned to [facility] on 01/29 volume overloaded (15 lbs over dry weight) with persistent abdominal pain and distension. She was transferred back to [facility]. She had a worsening leukocytosis (WBC 20) for which she underwent non-contrast CT (01/29) noting a 5.5 x 5.5 x 4.1cm peripancreatic fluidcollection. This was followed by a HIDA scan (01/29) without evidence of bile leak and MRCP (01/29) with similar findings to the CT, although no necrosis seen. She was seen by surgery during that stay w ith plans for completion surgery deferred until patient's pancreatitis and fluid collections improved / resolved. She was then discharged on 02/03. She re- represented to [facility] 02/04 fluid overloaded in [facility]. Abdominal pain stable at that time. CT at that time (02/04) notable for persistent peripancreatic fluid collection, now 11cm in largest dimension. Patient was diuresed and continued on supportivecare. She now presents to [facility] on 02/18 with worsening abdominal pain. She has remained afebrile, HDS. Labs notable for WBC 20, TB 0.6, AP 292, AST/ALT in 20-30 range, lipase 190 (wnl for reference lab). She underwent another CT A/P (02/18) again demonstrating patient's known collection, now measuring 9x7cm with two smaller collections adjacent, increase in Hounsfield units c/f possible hemorrhage v bile leak. Patient is currently on empiric. Imipenem. Case and images reviewed with Dr. Leigh. I did recommend patient be transferred to [facility] when a bed is available. Dr. Leigh did not feel there was an endoscopic approach to drain the peripancreatic collection at this time. He recommended surgical consultation when transferred to [facility] and consideration of possible percutaneous drainage followed by interval surgery when able. Reasonable to continue empiric abx for now, although unclear that fluid collection is superinfected at this time. This is not an official consult, as my recommendations are limited by my inability to interview andexamine the patient as well as personally review the medical record, imaging, and laboratory findings. Laci Epps MD PGY-4, Gastroenterology documented in this encounter Plan of Treatment Upcoming Encounters Date Type Department Care Team (Latest Contact Info) Description 05/08/2024 10:30 AM EDT Hospital [place] [phone] Bk Contreras MD [facility] [place] [address] 05/08/2024 10:30 AM EDT - 05/08/2024 11:00 AM [place] [phone] Bk Contreras MD [facility] [place] [address] INJECTION, ANESTHETIC AGENT AND/OR STEROID, TRANSFORAMINAL EPIDURAL, LUMBAR OR SACRAL, SINGLE LEVEL (WRVU 1.9) 05/12/2024 1:00 PM EDT Office Visit Cardiology at [address] [phone] Sadi Styles MD [facility] [place] [address] 05/29/2024 10:15 AM EDT TH Visit (TeleHealth) [place] [phone] Natalee Sanchez, CAKE FROSTERFORMERLY [facility] [place] [address] Scheduled Procedures Name Priority Associated Diagnoses Date/Ti me INJECTION, ANESTHETIC AGENT AND/OR STEROID, TRANSFORAMINAL EPIDURAL, LUMBAR OR SACRAL, SINGLE LEVEL (WRVU 1.9) Left lumbar radiculopathy 05/08/2024 10:30 AM EDT documented as of this encounter Visit Diagnoses Not on filedocumented in this encounter Care Teams Fish And Wildlife Biologist Relationship Specialty Start Date End Date Asia Gil DO [address] [place] [address] PCP - General Family Medicine 07/09/20 documented as of this encounter
--- OUTSIDE RECORDS SUMMARY | 2024-05-02 12:10 | XMS_ITS | Encounter Summary ---
Author Organization [facility] [place] [address] Care Team Providers Care Belt Glass Sander Name Role Phone AngelAsia alexandra Mona CARSON Primary Care Provider +1- [phone] Encounter Details Date Type Department Care Team (Late st Contact Info) Description 02/10/2021 [place] [phone] Tutu Mendoza MD [facility] [place] [address] ASCVD (arteriosclerotic cardiovascular disease) Social History Tobacco [...] 10:30 AM EDT Hospital [place] [address] Bk Contreras MD [facility] [place] [address] 05/08/2024 10:30 AM EDT - 05/08/2024 11:00 AM [place] [address] Bk Contreras MD [facility] [place] [address] INJECTION, ANESTHETIC AGENT AND/OR STEROID, TRANSFORAMINAL EPIDURAL, LUMBAR OR SACRAL, SINGLE LEVEL (WRVU 1.9) 05/12/2024 1:00 PM EDT Office Visit Cardiology at [address] Sadi Styles MD [facility] [place] [address] 05/29/2024 10:15 AM EDT TH Visit (TeleHealth) [facility] [place] [address] Natalee Sanchez APRN [facility] [place] [address] Scheduled Procedures Name Priority Associated Diagnoses Date/Ti me INJECTION, ANESTHETIC AGENT AND/OR STEROID, TRANSFORAMINAL EPIDURAL, LUMBAR OR SACRAL, SINGLE LEVEL (WRVU 1.9) Left lumbar radiculopathy 05/08/2024 10:30 AM EDT documented as of this encounter Visit Diagnoses Diagnosis ASCVD (arteriosclerotic cardiovascular disease) Unspecified cardiovascular disease Left lumbar radiculopathy Thoracic or lumbosacral neuritis or radiculitis, unspecified documented in this encounter Care Teams Belt Glass Sander Relationship Specialty Start Date End Date Asia Gil DO [address] [place] [address] PCP - General Family Medicine 07/09/20 documented as of this encounter
--- OUTSIDE RECORDS SUMMARY | 2024-05-02 12:10 | XMS_ITS | Encounter Summary ---
[place] [address] Care Team Providers Care Civil Service Worker Name Role Phone Asia Gil DO Primary Care Provider [phone] Reason for Visit * Auth/Cert Specialty Diagnoses / Procedures Referred By Contac t Referred To Contact Diagnoses Pancreatitis NSTEMI, pancreatic pseudocyst Procedures emergency ipi Referral ID Status Reason Start Date Expiration Date Visits Re quested Visits Authorized [id number] 1 1 Encounter Details Date Type Department Care Team (Latest Contact Info) Description 02/04/2021 8:49 PM EDT - 02/13/2021 1:01 PM EDT Hospital Encounter 1 [place] [address] Brittny Woods MD [facility] [place] [address] [place] [address] [place] [address] Acute biliary pancreatitis, unspecified complication status; Congestive heart failure, unspecified HF chronicity, unspecified heart failure type; Chest pain, unspecified type; ASCVD (arteriosclerotic cardiovascular disease); Acute on chronic congestive heart failure, unspecified heart failure type Discharge Disposition: Home with VNA Social History [...] Sign Reading Time Taken Comments Blood Pressure 121/60 02/13/2021 8:23 AM EDT Pulse 80 02/13/2021 4:20 AM EDT Temperature 37.2 ??C (98.9 ??F) 02/13/2021 8:23 AM ED T Respiratory Rate 18 02/13/2021 8:23 AM EDT Oxygen Saturation 92% 02/13/2021 8:23 AM EDT Inhaled Oxygen Concentration - - Weight 81.3 kg (179 lb 5.2 oz) 02/13/2021 4:50 A M EDT Height 160 cm (5' 3) 02/04/2021 9:15 PM EDT Body Mass Index 31.77 02/04/2021 9:15 PM EDT documented in this encounter Discharge Summaries * Jonelle Redman MD - 02/13/2021 11:48 AM EDT Images from the original note were not included. Inpatient - Discharge Summary Patient Name: Toyin Lion Patient Age: 65 y.o. Birthdate: 1955 Admit date: 02/04/2021 Discharge date and time: 02/13/21 Attending Physician: Jonelle Redman MD Primary Care Physician Asia Gil, DO Follow-up Recommendations to Providers: - Toyin is being discharged on 20 mg PO Torsemide BID. Please continue to monitor her response. Flors been instructed to call if her weight increases by 3 lbs within 24 hours or more than 5 lbs in one week. - Please obtain a BMP in one week - Other new medications Toyin is being discharged with include 25 mg Losartan, 12.5 mg Spironolactone, high intensity Atorvastatin, Metoprolol 50 mg qd, ASA and Plavix. - Toyin was diagnosed with sleep apnea by a sleep study in [place]. She has not gotten a CPAP machine yet and she experienced nocturnal desats <88% that corrected with wakening and O2 supplementation via nasal cannula. Recommend initiation of CPAP therapy. Discharge Diagnoses (Hospital Problems) and Secondary Diagnoses (Chronic Problems): Active Hospital Problems Diagnosis ??? Acute exacerbation of congestive heart failure ??? HFrEF (heart failure with reduced ejection fraction) ??? ASCVD (arteriosclerotic cardiovascular disease) Added automatically from request for surgery [id number] ??? Pancreatic pseudocyst Resolved Hospital Problems Diagnosis Date Resolved ??? Pancreatitis 02/06/2021 Active Non-Hospital Problems Diagnosis ??? PONV (postoperative nausea and vomiting) ??? Cystic duct calculus ??? RUQ pain Added automatically from request for surgery [id number] ??? Anxiety ??? Diabetic neuropathy ??? Nonalcoholic [...] utility run on 01/13/2012 Operations/Major Procedures: Operations: Procedure(s): CARDIAC CATHETERIZATION CORONARY ANGIOGRAPHY; W LHC,POSSIBLE PCI History of Presentation: Toyin Lion??is a 65 y.o.??female??with a medical history of SIMMONS cirrhosis (biopsy confirmed 2007), prior lap-ronnie, HTN, HLD, DMII c/b diabetic neuropathy, GERD, prior TIA, & CKD??III/A2-3??recently discharged after being admitted with pancreatitis re-presenting with shortness of breath and volume overload. ?? Toyin was initially admitted 01/17-01/27 with post-ERCP pancreatitis with retained stone in the cysticduct. She was re-admitted from 01/28-02/03 with ongoing abdominal pain found to have a large loculated thick walled collection surrounding her pancreas treated with supportive care discharged with planfor surgery as an outpatient. ?? This evening she was at home and was overall doing well. She was able to eat a normal dinner and goto sleep. She woke up to go to the bathroom and upon rising from the toilet noted severe shortness of breath with inability to get a breath in. She denies any associated chest pain, lightheadedness or dizziness. She has had increasing lower extremity edema since her initial admission in early January and has had an approximately 40lb weight gain since that time. She denies orthopnea or PND, does note that she has a history of KINGSLEY but is not using a CPAP at this time. Her abdominal pain has been appropriately controlled on her pain regimen. She denies any nausea/vomiting. ?? She denies any history of heart or lung disease including heart failure. ?? Her shortness of breath prompted her to present to [facility] where she was found to be tachypneic and sating in the 70s on room air with heart rates in the 150s. Labs were significant for a WBC of 32, initial troponin negative subsequent troponin 0.2, proBNP of >99080. ? RUQ ultrasound - large complex fluid collection in RUQ ?? CT A/P - large fluid collection in the RUQ of the abdomen suspicious for an abscess - moderate amount of abdominal pelvic free fluid - inflammatory stranding around the pancread - large amount of subcutaneous edema - moderate bilateral pleureal effusions and subjacent infiltrates ?? TTE - LVEF 35-40% WMAs could not be assessed - abnormal diastolic function - PASP 38 ?? CXR - pulmonary venous congestion ?? She was given empiric vanc and cefepime for her leukocytosis and 20mg of IV Lasix and was started on BiPAP. ?? On arrival at [facility] she is hemodynamically stable and sating well on 1L NC. She states that her breathing is improved and is in good spirits. Given this improvement she is being transferred from the ICU to hospital medicine. Hospital Course: #ADHF with volume overload #hypomagnesemia The patient was admitted and IV diuresis was initiated. She was diuresed from 206 to 179 lbs, whichis approximately 10 lbs above her dry weight. Her respiratory status and oxygen requirement improved with diuresis. On the day prior to discharge, she was transitioned to PO Torsemide which she tolerated and responded to. The patient required near daily IV magnesium repletion for hypomagnesemia throughout her stay. An Echo was obtained which revealed an EF of 40% as well as wall motions abnormalities which were new as compared with an Echo completed in June 2020. Cards were consulted, and performed a cath which revealed 3-vessel ASVCD, which is discussed below. GDMT was initiated including ASA, high intensity statin, Metoprolol, Losartan, and Spironolactone, all of which the patient tolerated without issue. #3-vessel CAD A cardiac cath was performed which revealed lesions in the LAD, LCX, and RCA which were felt to be chronic. The patient was evaluated by CT surgery who deemed her to be inappropriate for CABG as she is a high risk surgical candidate. She will follow up with Cardiology outpatient for staged PCI. Shewill be discharged on Plavix. Per general surgery, taking Plavix will not affect any potential surgical intervention for intra-abdominal fluid collection. #Pancreatitis The patient had recently been hospitalized for treatment of gallstone pancreatitis. Her abdominal pain was treated and well-controlled with PRN non- opioid modalities as well as PRN PO Oxycodone. She has planned outpatient follow-up with general surgery. Important Studies and Lab Data: Studies: Echo SUMMARY: ?? 1. The left ventricular chamber [...] is a greater than 50% respiratory change inthe inferior vena cava dimension. 7. There is no prior study in our system available for comparison. ?? Pending Studies and Lab Data: The patient will need the following test completed on: 02/04/2021 1. Magnesium Diagnosis: Authorizing Provider: Travis Callahan MD Discharge Conditions/Prognosis: The patient was fully ambulatory independently without an oxygen requirement, with stable vital signs, tolerating a PO regimen on the day of discharge. Discharge to: Home with VNA Discharge Medications: Your Medications New Medications Dose Details aspirin 81 mg Chew Take 81 mg by mouth daily. Start taking on: February 14, 2021 81 mg Quantity: 90 tablet Refills: 3 clopidogreL 75 mg Tab Commonly known as: Plavix Take 1 tablet by mouth daily. Start taking on: February 14, 2021 75 mg Quantity: 90 tablet Refills: 3 losartan 25 mg Tab Commonly known as: Cozaar Take 1 tablet by mouth daily. Start taking on: February 14, 2021 25 mg Quantity: 90 tablet Refills: 3 magnesium oxide 400 mg (241.3 mg magnesium) Tab Commonly known as: Mag-Ox Take 1 tablet by mouth 2 times daily. 400 mg Quantity: 180 tablet Refills: 3 melatonin 3 mg Tab Take 2 tablets by mouth nightly. 6 mg Quantity: 180 tablet Refills: 3 spironolactone 25 mg Tab Commonly known as: Aldactone Take 0.5 tablets by mouth daily. Start taking on: February 14, 2021 12.5 mg Quantity: 45 tablet Refills: 3 torsemide 20 mg Tab Commonly known as: Demadex Take 1 tablet by mouth 2 times daily. 20 mg Quantity: 60 tablet Refills: 3 traZODone 50 mg Tab Commonly known as: Desyrel Take 0.5 tablets by mouth nightly. 25 mg Quantity: 45 tablet Refills: 3 Continued medications, unchanged Dose Details acetaminophen 325 mg Tab Commonly known as: Tylenol Take 2 tablets by mouth every 4 hours as needed for Pain. 650 mg Quantity: 30 tablet Refills: 1 atorvastatin 40 mg Tab Commonly known as: Lipitor Take 1 tablet by mouth every evening. 40 mg Quantity: 90 tablet Refills: 3 calcium carbonate 200 mg calcium (500 mg) Chew Commonly known as: Tums Take 1-2 tablets by mouth every 4 hours as needed for Heartburn. 500-1,000 mg Refills: [address] 30 mg Cpdr Commonly known [...] 200 mg Quantity: 90 capsule Refills: 12 metoprolol succinate XL 50 mg Tablet sr [...] 17 g Quantity: 14 each Refills: 0 * This list has 3 medication(s) that are the same as other medications prescribed for you. Read thedirections carefully, and ask your doctor or other care provider to review them with you. STOPPED Medications mirtazapine 7.5 mg Tab Commonly known as: REMERON multivitamin Tab Commonly known as: THERAGRAN Updated Allergies/ADRs: Allergies Allergen Reactions ??? Benzodiazepines Other (See Comments) Paradoxical reaction to benzodiazepines ??? House Dust ??? Hydrocodone-Acetaminophen Itching ??? Metoclopramide ??? Mold Extracts ??? Pollen Extracts ??? Propoxyphene Hcl Nausea And Vomiting ??? Unknown [Unclassified Drug] Most environmental allergies: grass, workman, trees,pollen Instructions Given to Patient at Discharge: Patient Instructions Follow-Up Appointments 02/20/21 1:30 Linda Lehman APRN at your PCP office 03/20/[address] Cruz [facility] cardiology Heart Failure (HF) Action plan Your Diagnosis is: Heart Failure Your Euvolemic Weight (where fluid balance is ???just right?? ) is: ~170lbs Your Weight on day of discharge is: 179lbs Here are the YI THINGS you can do to help manage your heart failure: 1. Always take your medications as directed Make sure the medications you are actually taking match the medication list we have given you. If something doesn???t match or you???re unable to take a medication due to side effects or financial issues, or if there???s any other uncertainty- call for advice. 2. Watch for signs that you???re getting worse, such as worsening leg swelling or shortness of breath. Weighing yourself every day can catch worsening heart failure (holding on to fluid) before you get worsening symptoms. Weigh yourself at the same time every day, using the same scale in the same amount of clothing. The best time is in the morning after going to the bathroom and before eating or drinking. Keep a record of your daily weight, along with any change in diuretic dose. 3. Know who to call: your primary care doctor 4. Know when to call- Call for advice if: you gain more than 2 pounds in a day or 5 pounds in a week, or if you notice more leg swelling than usual, more coughing, or mildly worse shortness of breath Call now for an urgent appointment if: you have any trouble breathing at rest, wake up at night short of breath, feel dizzy or very tired, or have other bothersome new or worsening symptoms. Call 911 for an ambulance if: you have severe shortness of breath, chest pain or pressure, coughingup foamy pink mucous, have a fainting spell or feel confused. 5. Know your triggers and learn to avoid them. Triggers are things that can make heart failure worse, like eating salty foods or taking NSAIDs (ibuprofen, motrin, aleve). Sodium (salt) is usually limited to under 2000 mg/day- which is less than a teaspoon. Avoid table salt and processed foods, readnutrition labels, and be careful when you eat out. 6. Exercise at least 5 days a week. Exercise makes your heart stronger and can reduce symptoms. Walking is a great form of exercise. Moderate exercise is usually safe, but talk with your doctor before starting a strenuous exercise program. 7. Avoid more than one drink/day of alcohol. 8. If you smoke, quit. 9. Be sure to keep your scheduled doctor???s appointments. General Instructions Appointments: You have a hospital follow up with your primary care provider's office, February 1:30 Future Appointments and Orders Future Appointments and Orders Future Appointments Provider Department Dept Phone 03/03/2021 10:00 AM Yves Holt MD General Surgery at [facility] Arrive at: Career Development Specialist Area 4L [phone] 03/20/2021 8:00 AM Antonio Cruz MD Cardiology at [facility] Arrive at: Career Development Specialist Area 4A [phone] Future Orders Complete By Expires Referral to Home Health - at DISCHARGE [[id number] CPT(R)] As directed Process Instructions: Scheduling Instructions: Comments: DOCUMENTATION FOR VNA SERVICES (INCLUDING THOSE PATIENTS WITH MEDICARE COVERAGE REQUIRING HOME VNA SERVICES AND/OR HOSPICE SERVICES) PATIENT'S LOCATION: Toyin Lion [address] [place] [id number] Mobile #2: [phone] (daughter Linda) [employer] [place] Installation Helper's Name: Patient In discussion with the attending physician, it is certified that this patient is under their care and that they, or a Nurse Practitioner, Clinical Nurse Specialist or Physician Research Statistician who is working directly with them, had a face to face encounter that meets the physician face to face encounter requirements with this patient on 02/13/2021. The encounter with the patient was in whole, or in part, for the following medical condition, whichis the primary reason for home health care services: Pancreatitis. In discussion with the provider, it is certified that, based on their findings, the following services are medically necessary for home health services. To provide the following care/treatments with the clinical findings supporting the need for services as follows: HOME CARE ORDERS: RN: Assess vital signs, cardiopulmonary status, nutrition, hydration, elimination, medication effectiveness and management. Reinforce education regarding health issues. PT: Continue rehab for endurance, gait stability and strength with mobility and transfers. Home safety evaluation. Home exercise program if appropriate. OT: Assess and continue rehab for managing ADL's. Home exercise program if appropriate. SW: Please assist with Social needs. MOLD MACHINE OPERATOR: Assist patient with needs HOME HEALTH CARE AGENCY: [facility] PHONE: [phone] FAX: [phone] Start of care: 24-48 hrs after discharge. FOR MEDICARE ONLY: (please delete this section if not Medicare) In discussion with the attending physician, it is certified that the clinical findings support thatthis patient is homebound because absences from home require considerable and taxing effort due to: Medically contraindicated due to inability to ambulate community surfaces or distances unassisted due to pain, LE weakness or decreased balance and risk for falls. Unsteady gait, poor balance, requiring assistive devices and/or assistance of another. Please note that any additional orders needs or changes will need to be obtained from this patient's PCP: Asia Gil, DO [address] [facility] [id number] All A agencies which cover the area of patient's residence have been reviewed, either verbally margarita writing, and patient/family have chosen the home health care agency noted. Questions: Agency name and contact information: [facility] Patient location post discharge: Home What services are requested: Registered Nurse Physical Therapy Occupational Therapy Social Work Home Health Aide Start date: Responsible MD post discharge contact info: PCP Discharge References/Attachments: Discharge References/Attachments None Inpatient Provider Contact Information: [facility] Purple Team, pager [phone] Electronically Signed By: Ghazala Bragg MD 02/13/2021 documented in this encounter Discharge Instructions * Discharge Instructions* Gary Garcia MA - 02/13/2021 8:31 AM EDT Appointments: You have a hospital follow up with your primary care provider's office, February 1:30 * Patient Instructions* Bibiana Yarbrough MD - 02/13/2021 10:25 AM EDT Follow-Up Appointments 02/20/21 1:30 Linda Lehman APRN at your PCP office 03/20/[address] Cruz [facility] cardiology Heart Failure (HF) Action plan Your Diagnosis is: Heart Failure Your Euvolemic Weight (where fluid balance is ???just right?? ) is: ~170lbs Your Weight on day of discharge is: 179lbs Here are the YI THINGS you can do to help manage your heart failure: 1. Always take your medications as directed Make sure the medications you are actually taking match the medication list we have given you. If something doesn???t match or you???re unable to take a medication due to side effects or financial issues, or if there???s any other uncertainty- call for advice. 2. Watch for signs that you???re getting worse, such as worsening leg swelling or shortness of breath. Weighing yourself every day can catch worsening heart failure (holding on to fluid) before you get worsening symptoms. Weigh yourself at the same time every day, using the same scale in the same amount of clothing. The best time is in the morning after going to the bathroom and before eating or drinking. Keep a record of your daily weight, along with any change in diuretic dose. 3. Know who to call: your primary care doctor 4. Know when to call- Call for advice if: you gain more than 2 pounds in a day or 5 pounds in a week, or if you notice more leg swelling than usual, more coughing, or mildly worse shortness of breath Call now for an urgent appointment if: you have any trouble breathing at rest, wake up at night short of breath, feel dizzy or very tired, or have other bothersome new or worsening symptoms. Call 911 for an ambulance if: you have severe shortness of breath, chest pain or pressure, coughingup foamy pink mucous, have a fainting spell or feel confused. 5. Know your triggers and learn to avoid them. Triggers are things that can make heart failure worse, like eating salty foods or taking NSAIDs (ibuprofen, motrin, aleve). Sodium (salt) is usually limited to under 2000 mg/day- which is less than a teaspoon. Avoid table salt and processed foods, readnutrition labels, and be careful when you eat out. 6. Exercise at least 5 days a week. Exercise makes your heart stronger and can reduce symptoms. Walking is a great form of exercise. Moderate exercise is usually safe, but talk with your doctor before starting a strenuous exercise program. 7. Avoid more than one drink/day of alcohol. 8. If you smoke, quit. 9. Be sure to keep your scheduled doctor???s appointments. documented in this encounter Medications at Time [...] by mouth daily. 90 tablet 3 01/27/2021 clopidogreL (Plavix) 75 mg Tablet Take 1 tablet by mouth daily. 90 tablet 3 02/14/2021 05/28/2022 losartan (Cozaar) 25 mg Tablet Take 1 tablet by mouth daily. 90 tablet 3 02/14/2021 02/21/2021 magnesium oxide (Mag-Ox) 400 mg (241.3 mg magnesium) Tablet Take 1 tablet by mouth 2 times daily. 180 tablet 3 02/13/2021 12/18/2021 melatonin 3 mg Tablet Take 2 tablets by mouth nightly. 180 tablet 3 02/13/2021 12/22/2023 spironolactone (Aldactone) 25 mg Tablet Take 0.5 tablets by mouth daily. 45 tablet 3 02/14/2021 02/21/2021 torsemide (Demadex) 20 mg Tablet Take 1 tablet by mouth 2 times daily. 60 tablet 3 02/13/2021 02/21/2021 traZODone (Desyrel) 50 mg Tablet Take 0.5 [...] as of this encounter Progress Notes * Jonelle Redman MD - 02/13/2021 1:01 PM EDT Hospital Medicine - Attending Day of Discharge Documentation Discharge diagnosis Active Hospital Problems Diagnosis ??? Acute exacerbation of congestive heart failure ??? HFrEF (heart failure with reduced ejection fraction) ??? ASCVD (arteriosclerotic cardiovascular disease) ??? Pancreatic pseudocyst Resolved Hospital Problems Diagnosis Date Resolved ??? Pancreatitis 02/06/2021 Secondary Issues Active Non-Hospital Problems Diagnosis ??? PONV (postoperative nausea and vomiting) ??? [...] they are ready for discharge. I spent <30 minutes (Day of Discharge Code 80061) involved in the final examination of the patient, discussion of the hospital stay, instructions for continuing care to all relevant caregivers, and preparation of discharge records, prescriptions and referral forms. Plans ? Discharge to home ? Activity: as tolerated ? Diet: low salt; fluid restriction ? Follow-up scheduled Asia Gil, DO 1 week ? Please see the Discharge Summary for complete details of any medication changes and additional plans. Jonelle Redman MD * Cindy Cervantes RN - 02/13/2021 12:40 PM EDT Pt d/c to home with VNA services at approx 1230. AVS reviewed prior to d/c. PIV removed prior to d/c. Personal belongings in hand. Cindy Cervantes RN * Mayte Teixeira OTA - 02/13/2021 12:26 PM EDT Attempted to see pt for OT session, Per RN patient had increased pain and not appropriate for treatment. Will continue to follow. ONIEL Jane Pager [phone] * Zohra Weaver RN - 02/13/2021 11:20 AM EDT CARE MANAGEMENT FINAL DISCHARGE NOTE Chart reviewed, care reviewed with primary team and at interdisciplinary rounds. Patient is medically ready for discharge 02/13/21. Needs for Transition of Care Plan for discharge is: Home with VNA. Agency Referrals: 1) [facility]. PHONE: [phone] FAX: [phone] Transportation: Pre Kindergarten Teacher spoke with daughter Linda X 2 this morning to discuss discharge planning on behalf of Toyin.Linda expresses concerns regarding discharge planning. MD to speak with patient and daughter Linda to discuss discharge planning. RS at [facility] for LTC Medicaid made aware and to follow up with patient/family. Per daughter, patient has walker at home to use. PT/OT, patient to home with assist. Linda pl ans to stay with daughter and assist as needed. Plan for son in law to black pickler patient at [place] entrance at approximately noon. MD and RN aware of discharge plan. DME Needed at DC: None. Patient has walker to use at home. Patient is insured through: Primary Insurance: [employer] [place] Payor[place] [employer] [place] / Plan[place] / Product Type: *No Product type* / Secondary Insurance: [facility] MANAGED MEDICARE Prescription Coverage: See above Preferred Pharmacy: See below [facility] [address] [place] [id number] [id number] - [place], [place] - [address] [place] [address] AT [address] [facility] [address] [place] [phone] This plan was formulated with input from patient,Toyin Lion, and team. All are in agreement withplan. Due to current public health concerns, I have verbally reviewed Medicare Discharge Rights with patient. Patient verbalizes understanding of right to appeal this discharge if feeling not medically ready. Offered a copy of this letter, patient declined Zohra Weaver RN Case Independent Video Producer of Care Management Pager: [phone] * Shayy Ashley RN - 02/13/2021 5:02 AM EDT OUTCOME EVALUATION NOTE: ?? OUTCOME SUMMARY: ?? A&O x4, VSS, WNL x intermittent tachy exacerbated with ambulation. O2 2L applied @ HS due to decreased saturations down in 80's, Pt endorses 6/10 neuropathy pain, as well, as ankle/foot pain; pain controlled with scheduled gabapentin, PRN tylenol and PRN oxycodone x1 dose this shift. FSBS @ 2100= 181 covered with 1 Unit Humalog; Has rested well between care delivery. Will continue to monitor and update as needed. ? PLAN MOVING FORWARD: ?? Strict I/Os 2000mL fluid restriction D/C today on PO diuretics ?? INDIVIDUALIZED FALL PREVENTION INTERVENTIONS: ?? Patient-specific fall risk factors per assessment: [current deficits]: generalized weakness ?? Assistance [level of assistance required for transfers and ambulation]: independent ?? Supervision [direct monitoring required during toileting and ADLs]: eyes on ?? Surveillance [continuous indirect monitoring]: Purposeful hourly rounding, call cunningham within reach, rings appropriately, room near unit station, bed alarm set ?? Patient-specific fall prevention interventions for sensory deficits provided, if applicable: [X] N/A ? Cardiac/Telemetry Nursing Progress Note [id number] ?? Subjective: no reported cardiac s/s q shift Objective: ?? Vital Signs: See Vital signs below ?? Cardiac Meds: See online MAR ?? Labs: See labs in online chart. ?? Assessment: NSR to ST, 70-110, inverted T-waves seen. ?? Plan: Continue telemetry monitoring. Notify of any changes. ? Revision History OUTCOME EVALUATION NOTE: ?? OUTCOME SUMMARY: ?? A+Ox4, VSS on RA, pain controlled with scheduled gabapentin, PRN tylenol and PRN oxycodone. ?? Pt experienced 8-9/10 neuropathy pain at start of shift, as well as ankle/foot pain. ?? Spironolactone added today. No IV diuresis administered this shift. ?? PLAN MOVING FORWARD: ?? Strict I/Os 2000mL fluid restriction D/C tomorrow on PO diuretics ?? INDIVIDUALIZED FALL PREVENTION INTERVENTIONS: ?? Patient-specific fall risk factors per assessment: [current deficits]: generalized weakness ?? Assistance [level of assistance required for transfers and ambulation]: independent ?? Supervision [direct monitoring required during toileting and ADLs]: eyes on ?? Surveillance [continuous indirect monitoring]: Routine rounding, call cunningham within reach, [facility], room near nurses station, vital signs per order ?? Patient-specific fall prevention interventions for sensory deficits provided, if applicable: [X] N/A ? Cardiac/Telemetry Nursing Progress Note [id number] ?? Subjective: no reported cardiac s/s q shift Objective: ?? Vital Signs: See Vital signs below Patient Vitals for the past 24 hrs: BP Temp Temp src Pulse Resp SpO2 Weight 02/13/21 0450 -- -- -- -- -- -- 81.3 kg (179 lb 5.2 oz) 02/13/21 0420 108/52 36.8 ??C (98.2 ??F) Oral 80 18 95 % -- 02/13/21 0021 108/50 36.9 ??C (98.4 ??F) Oral 88 18 100 % -- 02/12/21 2136 136/65 -- -- (!) 108 -- -- -- 02/12/21 1900 127/62 37.1 ??C (98.8 ??F) Oral -- 18 97 % -- 02/12/21 1625 122/59 36.5 ??C (97.7 ??F) Oral -- 16 94 % -- 02/12/21 1243 -- -- -- -- -- 91 % 81.3 kg (179 lb 4.8 oz) 02/12/21 1135 99/48 37.1 ??C (98.7 ??F) Oral -- 18 92 % -- 02/12/21 0908 126/67 -- -- -- -- 94 % -- 02/12/21 0745 127/70 37.2 ??C (99 ??F) Oral -- 17 90 % -- 02/12/21 0508 123/58 36.5 ??C (97.7 ??F) Oral -- 16 96 % -- ?? Cardiac Meds: See online MAR ?? Labs: See labs in online chart. ?? Assessment: NSR to ST, 80-108, inverted T-waves seen. ?? Plan: Continue telemetry monitoring. Notify of any changes. ?? Revision History * Chris Patiño EXTRUDING MACHINE OPERATOR - 02/12/2021 4:02 PM EDT Chart reviewed. Discussed patients daily goals, and plan for potential discharge during IDR. Received VM from Poly Boss CM ([phone]) informing me that she may be able to identify a Community Nurse for the patient to ensure a continuity of care at discharge. Plan: Returned call to Poly. Left VM. Waiting for return call. Will continue to monitor. Following for EXTRUDING MACHINE OPERATOR support, including coping through illness process and resource needs, through disposition. Chris Patiño EXTRUDING MACHINE OPERATOR Pager [phone] * Ghazala Bragg MD - 02/12/2021 7:00 AM EDT Inpatient - Progress Note Admit Date: 02/04/2021 Hospital Day 8 days ID: Toyin Lion??is a 65 y.o.??female??with a medical history of SIMMONS cirrhosis (biopsy confirmed 2007), prior lap-ronnie, HTN, HLD, DMII c/b diabetic neuropathy, GERD, prior TIA, & CKD??III/A2-3??recently discharged after being admitted with pancreatitis re-presenting with shortness of breath and volume overload. Problem List: Active Hospital Problems Diagnosis ??? Acute exacerbation of congestive heart failure ??? HFrEF (heart failure with reduced ejection fraction) ??? ASCVD (arteriosclerotic cardiovascular disease) ??? Pancreatic pseudocyst Resolved Hospital Problems Diagnosis Date Resolved ??? Pancreatitis 02/06/2021 Active Non-Hospital Problems Diagnosis ??? PONV (postoperative nausea and vomiting) ??? Cystic duct calculus ??? RUQ pain ??? Anxiety ??? Diabetic neuropathy ??? Nonalcoholic steatohepatitis ??? Restless legs syndrome (RLS) ??? CKD (chronic kidney disease) ??? Delirium ??? Hyperlipidemia ??? Hypertension ??? Diabetes mellitus type 2, uncomplicated ??? Hx-TIA (transient ischemic attack) ??? GERD (gastroesophageal reflux disease) ??? Environmental allergies 24 Hour Events: - NAEO Physical Exam: Last Set of Vitals and range of vitals over past 24 hours: Last value Range last 24 hrs Temperature Temp: 36.5 ??C (97.7 ??F) Temp: [36.4 ??C (97.6 ??F)-37.2 ??C (99 ??F)] Heart Rate Heart Rate: 92 Heart Rate: [92] Blood Pressure BP: 123/58 BP: (100-141)/(46-85) Respiratory Rate Resp: 16 Resp: [16-20] SpO2 SpO2: 96 % SpO2: [93 %-98 %] Patient Vitals for the past 168 hrs: Weight 02/11/21 0512 83.7 kg (184 lb 8 oz) 02/10/21 0317 85.2 kg (187 lb 12.8 oz) 02/09/21 0559 85.2 kg (187 lb 13.3 oz) 02/07/21 0700 88.9 kg (195 lb 15.8 oz) Gen: Alert & oriented x3, NAD, well nourished CV: Regular rate and rhythm, no murmurs/rubs/gallops, 2+ radial/DP pulses; 2+ bilateral lower extremity pitting edema Pulm: CTAB without wheezes, rales, rhonchi. Faint bibasilar crackles, markedly improved as comparedwith prior exams. Abd: Soft non-tender, non distended Ext: Much improved LE edema, wearing compression stockings Neuro: Grossly intact, moving all four extremities. Skin: Warm, dry, no rashes Intake/Output Summary (Last 24 hours) at 02/12/2021 0700 Last data filed at 02/12/2021 0655 Gross per 24 hour Intake 600 ml Output 3600 ml Net -3000 ml Laboratory (Last 24 Hours): Last 3 wbc, hgb, hct plt Recent Labs 02/12/21 0559 02/11/21 0355 02/10/21 0338 WBC 11.0* 10.7* 10.4* HGB 7.4* 7.6* 9.2* HCT 23.3* 23.8* 28.0* PLATELET 271 273 344 Last 3 Lytes Recent Labs 02/12/21 0559 02/11/21 1137 02/11/21 0355 NA 134* 133* 134* K 3.8 3.7 3.9 CL 92* 90* 93* CO2 37* 36* 35* BUN 22* 19* 19* CREATININE 1.28* 1.12 1.01 Last Ca, Mg, Phos Recent Labs 02/12/21 0559 CALCIUM 8.0* MAGNESIUM 0.77 Last 3 ProBNP, Trop, CK Recent Labs 02/08/21 0405 TROPONINT 0.03* Microbiology: Blood Culture: NGTD COVID negative Radiology: XR Chest One View Final Result 1. Decreased pulmonary vascular congestion and interstitial edema compared to 02/04/2021. 2. No new focal consolidation. 3. No pleural effusions. Thank you for letting us participate in the care of this patient. If you are a health care provider and have any questions regarding this report, please contact the number below. For patients who have questions please contact the health day care attendant that requested your imaging first. Electronically signed by: Darren Bull MD, [facility] ([phone]), at 02/08/2021 8:04 AM Cardiac Catheterization Final Result CARDIAC CATH CASE REQUEST: CARDIAC CATHETERIZATION (Results Pending) Other Studies: Echo 02/05 SUMMARY: ?? 1. The left ventricular chamber [...] atrium is moderately dilated. The right atrium appearsnormal. 4. The aortic valve is tricuspid. Mild [...] is a greater than 50% respiratory change inthe inferior vena cava dimension. 7. There is no prior study in our system available for comparison. Cardiac Cath 02/07 Conclusions: * Three vessel coronary artery disease (LAD, LCX and RCA) * Elevated left ventricular end diastolic pressure Assessment: Toyin Lion??is a 65 y.o.??female??with a medical history of [...] and EF reduced onecho, consistent with CHF exacerbation, now clinically improving with aggressive diuresis. Toyin continues to improve clinically. Will transition to PO diuretics today and monitor output fordose finding in advance of discharge, likely tomorrow. Rest of plan as below #HFrEF with new WMAs #3-vessel CAD Cath showing 3-vessel disease, most severe in the LAD distribution - patient poor surgical candidate for CABG - Cards planning staged LAD PCI - CT surgery consulted, recs appreciated - Cardiology consulted, recs appreciated - continue ASA 81, Atorvastatin 80 mg qd - continue Plavix - Continue metoprolol to 25 mg metoprolol succinate BID today - Continue losartan 25 mg, spironolactone 12.5mg #Volume overload 2/2 CHF exacerbation #hypomagnesemia - Admission weight 206 lbs, Yesterday's weight: 184 lbs - Presumed dry weight ~170 lbs. - liberalize diet and transition to PO Torsemide for outpatient dose finding - Redose Torsemide this afternoon if not NN 1L - replete electrolytes K>4, Mg>1, requiring near daily IV mag repletion despite oral supplementation ? #leukocytosis, improving - stable from prior, thought to be reactive rather than infectious - hold off on antibiotics ?? #gallstone pancreatitis #loculated fluid collection - pain control with prn oxycodone - nausea control with prn Tigan - scheduled carafate - avoid fluids if possible - planned for outpatient management ?? #hx of constipation - sloane-colace - miralax - prn mag citrate #Home Meds - increase Cymbalta from 30 mg qd to 60 mg qd for improved mood control - continue atorvastatin - continue Gabapentin 200 mg BID, 100 mg at noon ?? #Housekeeping: - DVT PPx: SQH - GI PPx: protonix - Diet: CHO Level 2, 2gm Na, 2L fluid restriction - Level of care: floor - Vitals: q4h Ghazala Bragg MD 02/12/2021 Associated attestation - Jonelle Redman MD - 02/12/2021 10:57 PM EDT Attending Attestation Please see Dr. Bragg's note for details of the patient history of presentation and data. I have discussed, reviewed and agree with the documented History, Physical findings, Assessment and Plan ofcare. I have examined the patient myself and personally reviewed all studies. 65F PMHx SIMMONS cirrhosis, HTN, HLD, DM, GERD, CKD III who was admitted on 02/04 for shortness of breath and 40 pound weight gain with signs and symptoms of volume overload. Workup showed acute decompensated heart failure with echo showing new WMA.Cardiac workup showed 3VD but cardiac surgery recommends medical management with PCI. Diuresing well. Improved edema and breathing overall. Finding stable diuretic regimen to keep euvolemic. Anticipating discharge in AM. In addition, I certify that I am a [facility] credentialed attending provider with admitting privileges and that the patient meets or has met medical necessity to require an inpatient IPI level of care meeting a minimum of two midnights or is on the CMS inpatient only procedure list (status C) due to: monitoring of fluid status given an inability to regulate fluid balance and the need for administrationor restriction of fluids Jonelle Redman MD * SenserTutu MD - 02/11/2021 6:27 PM EDT Cardiology Consult Note Date of Consultation: 02/11/2021 Admit Date: 02/04/2021 Hospital Day 7 days Reason for Consult: DCHF, new dx of 3V CAD Active Problems: Active Hospital Problems Diagnosis ??? Acute exacerbation of congestive heart failure ??? HFrEF (heart failure with reduced ejection fraction) ??? ASCVD (arteriosclerotic cardiovascular disease) Added automatically from request for surgery [id number] ??? Pancreatic pseudocyst Resolved Hospital Problems Diagnosis Date Resolved ??? Pancreatitis 02/06/2021 ID: Toyin Lion is a 65 y.o. female with a history significant for SIMMONS cirrhosis, choleycystitis s/p cholecystectomy with recent retained stone c/b post-ERCP pancreatitis, discharge then readmitted shortly thereafter with respiratory failure secondary to decompensated CHF. Cardiology has been follo wing for her decompensated heart failure LVEF of 40% with LAD wall motion abnormalities and now evidence of ischemic cardiomyopathy with three-vessel disease on cath from February 07. Over the weekend she was evaluated by cardiac surgery for potential coronary artery bypass but was deemed to be a poor candidate and better candidate for staged PCI due to current poor functional status. 24-hour events: - good diuresis on lasix IV TID. - Nearing intravascular euvolemia, although extensive extravascular fluid remains a problem. - Increasing GDMT. Past medical, social, and family history were all reviewed and the electronic medical record. Out-Patient Medications: Medications Prior to Admission Medication Sig Dispense Refill Last Dose ??? oxyCODONE (Roxicodone) 5 mg Tablet Take 1 tablet by mouth every 8 hours as needed for Pain. 15 tablet 0 Unknown at Unknown time ??? polyethylene glycoL (Miralax) 17 gram Powder in Packet Take 17 g by mouth daily. 14 each 0 Unknown at Unknown time ??? acetaminophen (Tylenol) 325 mg Tablet Take 2 tablets by mouth every 4 hours as needed for Pain.30 tablet 1 Unknown at Unknown time ??? calcium carbonate (Tums) 200 mg calcium (500 mg) Tablet, Chewable Take 1-2 tablets by mouth every 4 hours as needed for Heartburn. Unknown at Unknown time ??? gabapentin (Neurontin) 100 mg Capsule Take 1 capsule by mouth Daily at Noon. 90 capsule 12 Unknown at Unknown time ??? gabapentin (Neurontin) 100 mg Capsule Take 2 capsules by mouth 2 times daily. 90 capsule 12 Unknown at Unknown time ??? gabapentin (Neurontin) 100 mg Capsule Take 2 capsules by mouth nightly as needed (sciatic leg pain). 90 capsule 12 Unknown at Unknown time ??? atorvastatin (Lipitor) 40 mg Tablet Take 1 tablet by mouth every evening. 90 tablet 3 Unknown at Unknown time ??? metoprolol succinate XL (Toprol-XL) 50 mg Tablet Sustained Release 24 hr Take 1 tablet by mouthdaily. 30 tablet 12 Unknown at Unknown time ??? DULoxetine DR (Cymbalta) 30 mg Capsule, Delayed Release(E.C.) Take 1 capsule by mouth daily. 30tablet 11 Unknown at Unknown time ??? pantoprazole EC (Protonix) 40 mg Tablet, Delayed Release (E.C.) Take 1 tablet by mouth daily. 90 tablet 3 Unknown at Unknown time ??? multivitamin (THERAGRAN) Tablet Take 1 tablet by mouth daily. Unknown at Unknown time ??? mirtazapine (REMERON) 7.5 mg Tablet Take 7.5 mg by mouth nightly. Unknown at Unknown time In-Patient Medications: ??? metoprolol tartrate 25 mg Oral 2 times per day ??? losartan 25 mg Oral Daily ??? clopidogreL 75 mg Oral Daily ??? [START ON 02/12/2021] torsemide 20 mg Oral Daily ??? traZODone 50 mg Oral Nightly ??? magnesium oxide 400 mg Oral BID ? ? sucralfate 1 g Oral 4 Times Daily AC & HS ??? atorvastatin 80 mg Oral QPM ??? melatonin 9 mg Oral Nightly ??? aspirin 81 mg Oral Daily ??? insulin lispro 1-5 Units Subcutaneous TID AC ??? DULoxetine DR 60 mg Oral Daily ??? gabapentin 100 mg Oral Daily at Noon ??? gabapentin 200 mg Oral BID ??? pantoprazole EC 40 mg Oral Daily ??? sodium chloride 0.9 % (flush) 5 mL Intravenous BID ??? heparin (porcine) 5,000 Units Subcutaneous Q8H BASIL Family History: No family history on file. Social History: Social History Social History Narrative ??? Not on file Review of Systems: 4 point ROS is either negative or as described in HPI Physical Exam: Last value Range last 8 hrs Temperature Temp: 36.4 ??C (97.6 ??F) Temp: [36.4 ??C (97.6 ??F)-36.9 ??C (98.4 ??F)] Heart Rate Heart Rate: 92 Heart Rate: -- Blood Pressure BP: 123/85 BP: (121-123)/(64-85) Respiratory Rate Resp: 18 Resp: [16-18] SpO2 SpO2: 97 % SpO2: [93 %-97 %] Intake/Output Summary (Last 24 hours) at 02/11/20211826 Last data filed at 02/11/2021 1800 Gross per 24 hour Intake 600 ml Output 4350 ml Net -3750 ml Wt & BMI By Encounter Date Admission (Current) from 02/04/2021 in 1 [facility] ED to Hosp-Admission (Discharged) from 01/28/2021 in 1 [facility] Weight 83.7 kg (184 lb 8 oz) 1 02/11/2021 0512 91.9 kg (202 lb 8 oz) 1 01/29/2021 164 BMI 36.63 1 02/04/2021 2115 35.87 1 01/29/2021 1641 General: Obese NAD HEENT: Face symetric Heart: RRR, no m/g/r. JVP 10 cm, 4 + LE edema bilaterally. Lungs clear. Vasc: perfused with good peripheral pulses. Coronary angiography from 02-07-21 was reviewed with high-grade calcific serial LAD stenosis, discrete distal RCA proximal to a bifurcation, moderate circumflex disease. -Discussed with interventional attending Dr. Cruz, who agrees with multivessel PCI as an outpatient. Echocardiogram from 02/05/2021: 1. The left ventricular chamber size is [...] study in our system available for comparison. Recent Labs 02/11/21 0355 02/10/21 0338 02/09/21 0355 WBC 10.7* 10.4* 11.2* HGB 7.6* 9.2* 8.5* HCT 23.8* 28.0* 26.8* PLATELET 273 344 283 Recent Labs 02/11/21 1137 02/11/21 0355 02/10/21 1629 NA 133* 134* 133* K 3.7 3.9 4.0 CL 90* 93* 92* CO2 36* 35* 32* BUN 19* 19* 19* CREATININE 1.12 1.01 1.13 Recent Labs 02/08/21 0405 02/04/21 2200 AST 47* 34* ALT 23 26 ALKPHOS 313* 222* BILITOT 0.4 0.6 BILIDIR 0.2 -- Recent Labs 02/11/21 1137 02/11/21 0355 02/10/21 1629 02/10/21 1142 CALCIUM 8.5 7.8* 7.8* 8.1* MAGNESIUM 0.92 0.69 -- 0.82 Recent Labs 02/04/21 2200 INR 1.2 PT 13.6* PTT 29 Recent Labs 02/08/21 0405 02/05/21 0610 02/04/21 2200 TROPONINT 0.03* 0.03* 0.03* ProBNP Date Value Ref Range Status 02/04/2021 >35,000 (H) <=124 pg/mL Final Assessment/Recommendations: 65-year-old female with hypertension and diabetes complex GI history and recent presentation for post ERCP pancreatitis complicated by acute decompensated heart failure with new finding of reduced EFto 40% and three-vessel coronary artery disease. She is now doing well after aggressive IV diuresis. Cardiac surgery has evaluated for revascularization and thought she would be high risk for CABG andmore suited to staged multivessel PCI. Dr. Cruz has agreed to outpatient multivessel PCI. She did not present with TX and all her disease appears chronic and she is now well compensated, giving us a chance to let her recover from this current admission prior to PCI. Dr. Scruggs has brought up the idea of having cardiac surgery evaluate her as an outpatient as she may be a candidate for CABG once she recovers her functional status. Will engage with Dr. Murphy tomorrow to discuss. In the meantime we will optimize her goal-directed medical therapy. Recommendations: - Continue IV diuresis 1-2 more days with goal 2 L negative daily. - Recommend TEDS and leg elevation improved nutrition to mobilize extravascular fluid. - Maintenance diuretic with lasix 40 mg daily once she is closer to euvolemia. - Start spironolactone 12.5 mg tomorrow. - Outpatient PCI unless deemed candidate for cardiac surgery. Cardiology will continue to follow. Patient will be discussed with Dr. Scruggs cardiology attending. Tutu Mendoza MD Rod Hanger Associated attestation - Darren Scruggs MD - 02/12/2021 8:58 AM EDT I have seen and examined the patient, providing yi components as outlined below. I have reviewed the resident???s above note; my evaluation of the patient is below: This is a non-ACS presentation. No urgent need for revascularization. I would recommend initial medical stabilization, a period of recovery from her pancreatitis and treatment of the congestive heartfailure. At that point, the mode of revascularization may be reconsidered. If her functional capacity improves sufficiently we may reconsider reevaluation for CABG. She does have three-vessel diseasewith underlying diabetes and left ventricular systolic dysfunction, so she is a surgical candidate that would be the preferred mode of revascularization. * Glenys Belcher, PT - 02/11/2021 4:35 PM EDT Physical Therapy Note Treatment Number PT: 2 Patient profile: Toyin Lion is a 65 y.o.??female?with a medical history of SIMMONS cirrhosis (biopsy confirmed 2007), prior lap-ronnie, HTN, HLD, DMII c/b diabetic neuropathy, GERD, prior TIA, & CKD??III/A2-3??recently discharged after being admitted with pancreatitis re-presenting with shortness of breath and volume overload. Interval History: NATHAN, transferred to on 02/06 Social History: Home setup: Pt lives alone in a home with 4 LEILANI and a first floor setup with tub shower. Pt will likely d/c to her daughter's home, which has 2-3 LEILANI and a step up to reach the living room. The bathroom has a tub shower. Baseline Mobility/Prior level of function: Independent with mobility, ADLs and IADLs at baseline. Pt has not been home for more than a day since 01/17 because of recent illnesses and hospitalizations, and is currently functioning below her baseline. Pt feels weaker than usual, has been using a walkerto ambulate, and had assistance from her daughter for dressing and getting in/out of the shower. DME: rolling walker, cane, shower seat Precautions/Special Considerations: fall risk, activity as toney Mobility and Positioning Recommendations: ?? Pt. to utilize rolling walker (as needed) and supervision for ambulation and transfers with nursing. ?? Please encourage up to chair for meal times as able. ?? Pt encouraged to ambulate frequently with staff, getting into the bathroom for toileting and walking out in the quintero >/= 3 times daily as able. Subjective: Pt reports she is feeling better but her L leg is still feeling weak. Objective: Patient seen for physical therapy and demonstrated the following: ??? Pain: none reported ?? Vital Signs: stable throughout ? Mental status: alert, oriented, cooperative ? Safety Awareness: WFL ? Command followin% of the time ? Attention: WFL ? Vision: wears glasses ? Musculoskeletal: ROM: B LEs grossly WFL Strength: B LEs grossly WFL, but weaker compared to pt's baseline per report ? Bed Mobility: Supine to Sit: modified independent with HOB raised ~30 degrees Sit to Supine: NA ? Transfers: Sit to Stand: modified independent, rolling walker and without a device Stand to Sit: modified independnet, rolling walker and without a device Bed to Chair: NA ? Gait: Distance: 150ft Device used: no device in room, rolling walker in the quintero Level of assist: modified independent Gait mechanics: Steady without a device (in room) and with use of walker, consistent reciprocal gait pattern, decreased gait speed. Distance limited by fatigue, with pt taking several brief (<30sec) standing rest breaks.? Stairs: NA ? Seated Balance: Static: good, sat at EOB independently Dynamic: good ? Standing Balance: Static: good without support, pt stood at the sink independently to wash her hands Dynamic / Gait: good with walker and without support ? Therex: reviewed LE strengthening exercises including ankle pumps, LAQs, seated marches, glutealsets and SLRs. Pt reports that she is already familiar with these exercises from therapy associatedwith a herniated disk, demonstrates good understanding of each, and verbalizes understanding to perform them regularly as able throughout the day. ?? Education: patient has been educated on Transfers, Assistive device/technique, Safety , Precautions/protocol, Activity pacing/Energy conservation, Role of therapy and Discharge planning and verbalizes and demonstrates understanding. Patient status, treatment, and mobility recommendations discussed with nursing. Pt left in bedside recliner chair to eat dinner, with call cunningham within reach and all needs met following visit. Assessment: Pt seen today for physical therapy treatment # 2. Session focused on functional mobility, gait/endurance training and strengthening therex. Pt is progressing well toward functional goals,and feels better than last week, although her L LE still feels weak. Pt ambulated a lap around the unit without difficulty, using a walker in the hallway and no device in the room. Pt also verbalizesand demonstrates good understanding of basic LE strengthening exercises, and has past experience performing each exercise this therapist provided. Encouraged pt to continue ambulating several times per day with staff assist and perform LE strengthening frequently as able. Recommend d/c to home withassistance and home health when medically stable. Based on functional progress, plan to monitor in case needs arise. Discharge Recommendations: Based on the current findings, Anticipated Discharge Disposition (PT): home with assist, home with home health when medically ready for hospital discharge. Consult Recommendations: No other consults recommended at this time. Equipment needs: Patient has all necessary equipment Physical Therapy Goals: To be achieved by 02/13/21: ?? 1. Pt. to perform bed mobility independently. ACHIEVED 2. Pt. to ambulate 150 feet independently using no assistive device. PARTIALLY ACHIEVED (pt able toambulate without a device but feels more comfortable with a walker 3. Pt. to ambulate up/down 2-3 step/stairs using one rail with modified independence. ONGOING (pt likely will not have difficulty based on current mobility level) 4. Pt will demonstrate independence with strengthening home exercise program. ACHIEVED Plan: Therapy Frequency (PT): Monitor Time IN / OUT: 8630-1197 Total Minutes, Physical Therapy: 10(TEFx1). Glenys Belcher PT DPT 02/11/2021 Pager: [phone] Physical Therapy Inpatient Rehabilitation Department * Mayte Teixeira OTA - 02/11/2021 3:23 PM EDT Occupational Therapy Treatment Note Treatment Number OT: 2 Patient Dx: Toyin Lion is a 65 y.o. femalewith a medical history of SIMMONS cirrhosis (biopsy confirmed 2007), prior lap-ronnie, HTN, HLD, DMII c/b diabetic neuropathy, GERD, prior TIA, & CKD??III/A2-3??recently discharged after being admitted with pancreatitis, re-admitted on 02/04/2021 with shortness of breath and volume overload Toyin was initially admitted 01/17-01/27 with post-ERCP pancreatitis with retained stone in the cysticduct. She was re-admitted from 01/28-02/03 with ongoing abdominal pain found to have a large loculated thick walled collection surrounding her pancreas treated with supportive care discharged with planfor surgery as an outpatient. ??This evening she was at home and was overall doing well. She was able to eat a normal dinner and go to sleep. She woke up to go to the bathroom and upon rising from the toilet noted severe shortness of breath with inability to get a breath in. She denies any associated chest pain, lightheadednessor dizziness. She has had increasing lower extremity edema since her initial admission in early January and has had an approximately 40lb weight gain since that time. She denies orthopnea or PND, does note that she has a history of KINGSLEY but is not using a CPAP at this time. Her abdominal pain has beenappropriately controlled on her pain regimen. She denies any nausea/vomiting. ?? Past Medical History: Diagnosis Date ??? CKD (chronic kidney disease) 04/05/2020 ??? Delirium 04/05/2020 ??? Diabetes mellitus type 2, uncomplicated 05/14/2014 ??? Hx-TIA (transient ischemic attack) 05/14/2014 ??? Hyperlipidemia 05/28/2014 ?? Off statin due to foot pain side effect ??? Hypertension 05/28/2014 ??? Restless legs syndrome (RLS) 04/05/2020 ?? Past Surgical History: Procedure Laterality Date ??? PRO ERCP,DIAGNOSTIC N/A 01/17/2021 ?? ERCP performed by Eliel Leigh MD at [facility] ? Social History: Patient lives alone in [place], [place]. She reports one of her daughters lives in [place]. 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 She said she could stay with her if needed Home Setup: 4 steps to enter, can stay on 1st level, has a tub shower; daughter's home has 2-3 LEILANI,1 level, tub shower. DME: shower seat, walker, cane, grab bars Baseline ADL/Mobility: Pt was independent w/ ADL's and IADL's at baseline, though has not been homefor more than a day since 01/17. Pt reports that the last time she was home (02/03), she had trouble getting into/out of the car, daughter stayed with her. She was ambulating w/o a device. She took a shower, but daughter helped her get into the shower and she sat for it. Her daughter needed to help her with getting dressed. ?? Precautions/Special Considerations: Fall Interval History: Per Medicine's note 02/11/21 Reports feeling okay this morning. Slept well last night. - Desatted to mid 80s while asleep, quickly improved with nasal cannula. ?? S: I feel very weak O: Patient seen for skilled OT treatment, and demonstrated the following: ?? Self-care & Functional Mobility: ?? Pt in recliner upon arrival,agreeable to therapy ?? Sit to stand from chair S,pt reported has not been ambulating to the bathroom with a/d ?? Pt stood in front of the sink,completed facial hygiene with S ?? Attempted bathing tasks,pt reported felt very fatigued and preferred to do it later in the day ?? Pt doned pants seated/standing with Min A,pt doffed pants with Min A. Pt doned socks with sock aid with Min A ?? Sit to stand from chair x3 trials, two without a/d one trial with FWW ?? Pt mobilized 15 ft x2 FWW CGA ?? Discussed energy conservation techniques/pacing strategies ?? Pt left in chair with call cunningham and essentials in reach,chair alarm activated ?? Cognition: ?? Behavior / Mood: alert and cooperative ?? Alert and oriented to: person, place, time and situation ?? Follows commands: multi step and 100% of the time ?? Attention: WFL ?? Safety awareness: WFL ?? Vision:WFL ?? Endurance:Fatigued easily with activity ?? Vitals: Stable on RA ?? Strength/ROM: WFL Pain: 6-7/10 feet,RN informed Education: Pt/family/caregiver education ongoing regarding: Role of occupational therapy/rehabilitation, Transfers, Assistive device/technique, Adaptive equipment training, ADL, Positioning, Safety, Precautions/Protocol, Functional Mobility, Activity pacing/Energy conservation and Balance. Staff Communication: Patient status, treatment, and mobility recommendations discussed with nursing/other staff. ASSESSMENT: Patient mobilized short distance with FWW CGA,pt was limited by decreased activity tolerance,strength,pain to feet. Pt stood in front of the sink briefly to complete facial hygiene reported needed to sit in chair secondary pain to feet. Pt will benefit from ongoing therapeutic interventions to achieve pt's and therapy goals Anticipated Discharge Disposition (OT): home with assist, home with home health Equipment Recommendations: TBD ?? Daily schedule / Staff Recommendations: Transfer to recliner chair as appropriate with FWW and CGA to SBA, ambulate as tolerated with same Encourage participation in ADL's by providing set up A on tray table and physical assist only as needed Occupational Therapy Goals: To be achieved by 02/13/21: 1. Patient will be modified independent for LB dressing. 2. Patient will be modified independent for seated shower. 3. Patient will be modified independent for standing grooming tasks with least restrictive device. 4. Patient will verbalize understanding of energy management strategies Therapy Frequency (OT): 2-3 times/wk Total Minutes, Occupational Therapy: 33(Schmx2) Pager: [phone] ONIEL Jane Occupational Therapy Rehabilitation Department * Annabel Brown DT - 02/11/2021 2:18 PM EDT Nutrition Services Note - Low Nutrition Acuity Toyin Lion is a 65 y.o. female Reason for intervention: follow up Nutrition Plan: Continue current diet. Monitor weight. Encourage good oral intake. Support and encouragement provided. Pt reported a god appetite, 100% PO intake noted for lunch today. She declined need for Low Sodium and Low Fat diet education as she has had them during previous admissions. If a refresher is needed please consult for diet education. Pt declined offer of supplements/ high protein snacks. Nutrition to follow up and monitor. Active Orders Diet Carb Control diet 60/60/75 CHO counting level 2 45 GM FAT (LOW FAT); 2 GM NA; 2000 mL FLUID Frequency: Effective Now Number of Occurrences: Until Specified Admit Weight: 93.8 kg Estimated body mass index is 32.68 kg/m?? as calculated from the following: Height as of this encounter: 160 cm (5' 3). Weight as of this encounter: 83.7 kg (184 lb 8 oz). Wt Readings from Last 5 Encounters: 02/11/21 83.7 kg (184 lb 8 oz) 01/29/21 91.9 kg (202 lb 8 oz) 01/17/21 76.7 kg (169 lb) 06/07/20 74.2 kg (163 lb 9.6 oz) 04/12/20 79 kg (174 lb 2.6 oz) Weight loss: not clinically significant Appetite: Excellent (75%-100%) Food allergies:no known food allergies Chewing/Swallowing difficulty: none Nausea/Vomiting: no nausea Last Bowel Movement: 02/10/21(pt reported BM yesterday) Patient education / questions: all nutrition related questions answered at this time Nutrition services to follow weekly through hospital course unless consulted in the interim. JAZMIN Edmondson Pager: [phone] * Chris Patiño EXTRUDING MACHINE OPERATOR - 02/11/2021 1:27 PM EDT Chart reviewed. Discussed patients daily goals, and plan for potential discharge during IDR. Contacted [facility] ([facility]) in an attempt to connect patient to services to ensure a continuity of care at discharge. [facility] doesn't serve [facility]. Contacted [facility] to identify the Community Nurse. Waiting on a return call. Will continue to monitor. Plan: Continue working on identifying a Community Nurse to ensure a continuity of care at discharge. Following for EXTRUDING MACHINE OPERATOR support, including coping through illness process and resource needs, through disposition. Chris Patiño EXTRUDING MACHINE OPERATOR Pager #[phone] * Ghazala Bragg MD - 02/11/2021 6:43 AM EDT Inpatient - Progress Note Admit Date: 02/04/2021 Hospital Day 7 days ID: Toyin Lion??is a 65 y.o.??female??with a medical history of SIMMONS cirrhosis (biopsy confirmed 2007), prior lap-ronnie, HTN, HLD, DMII c/b diabetic neuropathy, GERD, prior TIA, & CKD??III/A2-3??recently discharged after being admitted with pancreatitis re-presenting with shortness of breath and volume overload. Problem List: Active Hospital Problems Diagnosis ??? Acute exacerbation of congestive heart failure ??? HFrEF (heart failure with reduced ejection fraction) ??? ASCVD (arteriosclerotic cardiovascular disease) ??? Pancreatic pseudocyst Resolved Hospital Problems Diagnosis Date Resolved ??? Pancreatitis 02/06/2021 Active Non-Hospital Problems Diagnosis ??? PONV (postoperative nausea and vomiting) ??? Cystic duct calculus ??? RUQ pain ??? Anxiety ??? Diabetic neuropathy ??? Nonalcoholic steatohepatitis ??? Restless legs syndrome (RLS) ??? CKD (chronic kidney disease) ??? Delirium ??? Hyperlipidemia ??? Hypertension ??? Diabetes mellitus type 2, uncomplicated ??? Hx-TIA (transient ischemic attack) ??? GERD (gastroesophageal reflux disease) ??? Environmental allergies 24 Hour Events: - Reports feeling okay this morning. Slept well last night. - Desatted to mid 80s while asleep, quickly improved with nasal cannula. Physical Exam: Last Set of Vitals and range of vitals over past 24 hours: Last value Range last 24 hrs Temperature Temp: 36.8 ??C (98.2 ??F) Temp: [36.6 ??C (97.9 ??F)-37.1 ??C (98.8 ??F)] Heart Rate Heart Rate: 92 Heart Rate: [92] Blood Pressure BP: 133/69 BP: (114-150)/(56-88) Respiratory Rate Resp: 20 Resp: [18-20] SpO2 SpO2: 98 % SpO2: [87 %-98 %] Patient Vitals for the past 168 hrs: Weight 02/11/21 0512 83.7 kg (184 lb 8 oz) 02/10/21 0317 85.2 kg (187 lb 12.8 oz) 02/09/21 0559 85.2 kg (187 lb 13.3 oz) 02/07/21 0700 88.9 kg (195 lb 15.8 oz) 02/04/21 2115 93.8 kg (206 lb 12.7 oz) Gen: Alert & oriented x3, NAD, well nourished CV: Regular rate and rhythm, no murmurs/rubs/gallops, 2+ radial/DP pulses; 2+ bilateral lower extremity pitting edema Pulm: CTAB without wheezes, rales, rhonchi. Faint bibasilar crackles, markedly improved as comparedwith prior exams. Abd: Soft non-tender, non distended Ext: 1-2+ pitting edema to the knees, improving Neuro: Grossly intact, moving all four extremities. Skin: Warm, dry, no rashes Intake/Output Summary (Last 24 hours) at 02/11/2021 0643 Last data filed at 02/11/2021 0510 Gross per 24 hour Intake 480 ml Output 2550 ml Net -2070 ml Laboratory (Last 24 Hours): Last 3 wbc, hgb, hct plt Recent Labs 02/11/21 0355 02/10/21 0338 02/09/21 0355 WBC 10.7* 10.4* 11.2* HGB 7.6* 9.2* 8.5* HCT 23.8* 28.0* 26.8* PLATELET 273 344 283 Last 3 Lytes Recent Labs 02/11/21 0355 02/10/21 1629 02/10/21 1142 NA 134* 133* 135 K 3.9 4.0 3.7 CL 93* 92* 93* CO2 35* 32* 33* BUN 19* 19* 19* CREATININE 1.01 1.13 1.17 Last Ca, Mg, Phos Recent Labs 02/11/21 0355 CALCIUM 7.8* MAGNESIUM 0.69 Last 3 ProBNP, Trop, CK Recent Labs 02/08/21 0405 02/05/21 0610 02/04/21 2200 TROPONINT 0.03* 0.03* 0.03* PROBNP -- -- >35,000* Microbiology: Blood Culture: NGTD COVID negative Radiology: XR Chest One View Final Result 1. Decreased pulmonary vascular congestion and interstitial edema compared to 02/04/2021. 2. No new focal consolidation. 3. No pleural effusions. Thank you for letting us participate in the care of this patient. If you are a health care provider and have any questions regarding this report, please contact the number below. For patients who have questions please contact the health day care attendant that requested your imaging first. Electronically signed by: Darren Bull MD, [facility] ([phone]), at 02/08/2021 8:04 AM Cardiac Catheterization Final Result CARDIAC CATH CASE REQUEST: CARDIAC CATHETERIZATION (Results Pending) Other Studies: Echo 02/05 SUMMARY: ?? 1. The left ventricular chamber [...] atrium is moderately dilated. The right atrium appearsnormal. 4. The aortic valve is tricuspid. Mild [...] is a greater than 50% respiratory change inthe inferior vena cava dimension. 7. There is no prior study in our system available for comparison. Cardiac Cath 02/07 Conclusions: * Three vessel coronary artery disease (LAD, LCX and RCA) * Elevated left ventricular end diastolic pressure Assessment: Toyin Lion??is a 65 y.o.??female??with a medical history of [...] and EF reduced onecho, consistent with CHF exacerbation, now clinically improving with aggressive diuresis. Today Ms. Lion feels better than yesterday, and continues to diurese effectively on IV Lasix with stable kidney function. Will continue another day of IV diuresis and transition to PO diuresis tomorrow to titrate adequate PO diuretic regimen as well as start GDMT per Cardiology recs in advance of discharge later this week. She remains approximately 15 lbs above dry weight, and we will continueto monitor and replete electrolytes as IV diuresis continues. Initially adding Plavix today for staged PCI planning. Rest of plan as below #HFrEF with new WMAs #3-vessel CAD Cath showing 3-vessel disease, most severe in the LAD distribution - patient poor surgical candidate for CABG - Cards planning staged LAD PCI - CT surgery consulted, recs appreciated - Cardiology consulted, recs appreciated - continue ASA 81, Atorvastatin 80 mg qd - Increasing metoprolol to 25 mg metoprolol succinate BID today - Adding losartan 25 mg this evening, will add 12.5 mg spironolactone tomorrow - starting Plavix today #Volume overload 2/2 CHF exacerbation #hypomagnesemia - continue IV Lasix TID today, check BMP BID, transition to PO diuretics tomorrow and monitor for effective response in advance of discharge - continue 2L fluid restriction to promote more effective diuresis - replete electrolytes K>4, Mg>1, requiring near daily IV mag repletion despite oral supplementation ? #leukocytosis, improving - stable from prior, thought to be reactive rather than infectious - hold off on antibiotics ?? #gallstone pancreatitis #loculated fluid collection - pain control with prn oxycodone - nausea control with prn Tigan - scheduled carafate - avoid fluids if possible - planned for outpatient management ?? #hx of constipation - sloane-colace - miralax - prn mag citrate #Home Meds - increase Cymbalta from 30 mg qd to 60 mg qd for improved mood control - continue atorvastatin - continue Gabapentin 200 mg BID, 100 mg at noon ?? #Housekeeping: - DVT PPx: SQH - GI PPx: protonix - Diet: CHO Level 2, 2gm Na, 2L fluid restriction - Level of care: floor - Vitals: q4h Ghazala Bragg MD 02/11/2021 Associated attestation - Jonelle Redman MD - 02/11/2021 5:53 PM EDT Attending Attestation Please see Dr. Bragg's note for details of the patient history of presentation and data. I have discussed, reviewed and agree with the documented History, Physical findings, Assessment and Plan ofcare. I have examined the patient myself and personally reviewed all studies. 65F PMHx SIMMONS cirrhosis, HTN, HLD, DM, GERD, CKD III who was admitted on 02/04 for shortness of breath and 40 pound weight gain with signs and symptoms of volume overload. Workup showed acute decompensated heart failure with echo showing new WMA.Cardiac workup showed 3VD but cardiac surgery recommends medical management with PCI outpatient. She continues to respond well to IV diuresis losing 3 pounds overnight and with stable kidney function. More ambulatory and less leg swelling. Cleared by PT for home. Appreciate cardiology recommendations. Anticipate discharge in 1-2 days after stable on PO regimen. In addition, I certify that I am a [facility] credentialed attending provider with admitting privileges and that the patient meets or has met medical necessity to require an inpatient IPI level of care meeting a minimum of two midnights or is on the [facility] inpatient only procedure list (status C) due to: monitoring of fluid status given an inability to regulate fluid balance and the need for administrationor restriction of fluids Jonelle Redman MD * Art White MD - 02/10/2021 9:59 AM EDT Cardiology Consult Note Date of Consultation: 02/10/2021 Admit Date: 02/04/2021 Hospital Day 6 days Reason for Consult: DCHF, new dx of 3V CAD Active Problems: Active Hospital Problems Diagnosis ??? Acute exacerbation of congestive heart failure ??? HFrEF (heart failure with reduced ejection fraction) ??? Pancreatic pseudocyst Resolved Hospital Problems Diagnosis Date Resolved ??? Pancreatitis 02/06/2021 ID: Toyin Lion is a 65 y.o. female with a history significant for SIMMONS cirrhosis, choleycystitis s/p cholecystectomy with recent retained stone c/b post-ERCP pancreatitis, discharge then readmitted shortly thereafter with respiratory failure secondary to decompensated CHF. Cardiology has been follo wing for her decompensated heart failure LVEF of 40% with LAD wall motion abnormalities and now evidence of ischemic cardiomyopathy with three-vessel disease on cath from February 07. Over the weekend she was evaluated by cardiac surgery for potential coronary artery bypass but was deemed to be a poor candidate and better candidate for staged PCI. 24-hour events: -1.7 L negative yesterday on Lasix 40 mg twice daily IV. -She reports her breathing is much better. She is lying flat without respiratory distress. She has no complaints of chest pain. Past medical, social, and family history were all reviewed and the electronic medical record. Out-Patient Medications: Medications Prior to Admission Medication Sig Dispense Refill Last Dose ??? oxyCODONE (Roxicodone) 5 mg Tablet Take 1 tablet by mouth every 8 hours as needed for Pain. 15 tablet 0 Unknown at Unknown time ??? polyethylene glycoL (Miralax) 17 gram Powder in Packet Take 17 g by mouth daily. 14 each 0 Unknown at Unknown time ??? acetaminophen (Tylenol) 325 mg Tablet Take 2 tablets by mouth every 4 hours as needed for Pain.30 tablet 1 Unknown at Unknown time ??? calcium carbonate (Tums) 200 mg calcium (500 mg) Tablet, Chewable Take 1-2 tablets by mouth every 4 hours as needed for Heartburn. Unknown at Unknown time ??? gabapentin (Neurontin) 100 mg Capsule Take 1 capsule by mouth Daily at Noon. 90 capsule 12 Unknown at Unknown time ??? gabapentin (Neurontin) 100 mg Capsule Take 2 capsules by mouth 2 times daily. 90 capsule 12 Unknown at Unknown time ??? gabapentin (Neurontin) 100 mg Capsule Take 2 capsules by mouth nightly as needed (sciatic leg pain). 90 capsule 12 Unknown at Unknown time ??? atorvastatin (Lipitor) 40 mg Tablet Take 1 tablet by mouth every evening. 90 tablet 3 Unknown at Unknown time ??? metoprolol succinate XL (Toprol-XL) 50 mg Tablet Sustained Release 24 hr Take 1 tablet by mouthdaily. 30 tablet 12 Unknown at Unknown time ??? DULoxetine DR (Cymbalta) 30 mg Capsule, Delayed Release(E.C.) Take 1 capsule by mouth daily. 30tablet 11 Unknown at Unknown time ??? pantoprazole EC (Protonix) 40 mg Tablet, Delayed Release (E.C.) Take 1 tablet by mouth daily. 90 tablet 3 Unknown at Unknown time ??? multivitamin (THERAGRAN) Tablet Take 1 tablet by mouth daily. Unknown at Unknown time ??? mirtazapine (REMERON) 7.5 mg Tablet Take 7.5 mg by mouth nightly. Unknown at Unknown time In-Patient Medications: ??? magnesium oxide 400 mg Oral BID ? ? sucralfate 1 g Oral 4 Times Daily AC & HS ??? atorvastatin 80 mg Oral QPM ??? furosemide 40 mg Intravenous BID ??? melatonin 9 mg Oral Nightly ??? metoprolol tartrate 12.5 mg Oral 2 times per day ??? aspirin 81 mg Oral Daily ??? insulin lispro 1-5 Units Subcutaneous TID AC ??? DULoxetine DR 60 mg Oral Daily ??? gabapentin 100 mg Oral Daily at Noon ??? gabapentin 200 mg Oral BID ??? pantoprazole EC 40 mg Oral Daily ??? sodium chloride 0.9 % (flush) 5 mL Intravenous BID ??? heparin (porcine) 5,000 Units Subcutaneous Q8H BASIL Family History: No family history on file. Social History: Social History Social History Narrative ??? Not on file Review of Systems: 4 point ROS is either negative or as described in HPI Physical Exam: Last value Range last 8 hrs Temperature Temp: 36.8 ??C (98.2 ??F) Temp: [36.8 ??C (98.2 ??F)] Heart Rate Heart Rate: 92 Heart Rate: [92] Blood Pressure BP: 120/56 BP: (114-120)/(55-56) Respiratory Rate Resp: 18 Resp: [18] SpO2 SpO2: 91 % SpO2: [91 %] Intake/Output Summary (Last 24 hours) at 02/10/2021 0959 Last data filed at 02/10/2021 0745 Gross per 24 hour Intake 631 ml Output 2225 ml Net -1594 ml Wt & BMI By Encounter Date Admission (Current) from 02/04/2021 in 1 [facility] ED to Hosp-Admission (Discharged) from 01/28/2021 in 1 [facility] Weight 85.2 kg (187 lb 12.8 oz) 1 02/10/2021 0317 91.9 kg (202 lb 8 oz) 1 01/29/2021 1641 BMI 36.63 1 02/04/2021 2115 35.87 1 01/29/2021 1641 General: Obese NAD HEENT: Face symetric Heart: RRR, no m/g/r. JVP 12 cm, 4 + LE edema bilaterally. Lungs bibasilar crackles otherwise clear. Vasc: perfused with good peripheral pulses. Coronary angiography from 02-07-21 was reviewed with high-grade calcific serial LAD stenosis, discrete distal RCA proximal to a bifurcation, moderate circumflex disease. -Discussed with interventional attending Dr. Cruz, who agrees with multivessel PCI as an outpatient. Echocardiogram from 02/05/2021: 1. The left ventricular chamber size is [...] study in our system available for comparison. Recent Labs 02/10/21 0338 02/09/21 0355 02/08/21 0405 WBC 10.4* 11.2* 12.3* HGB 9.2* 8.5* 8.0* HCT 28.0* 26.8* 24.3* PLATELET 344 283 248 Recent Labs 02/10/21 0338 02/09/21 11202/09/21 0355 NA 132* 131* 135 K Not Perf 3.9 4.0 CL 91* 92* 94* CO2 32* 30 31 BUN 19* 19* 20* CREATININE 0.99 1.09 1.07 Recent Labs 02/08/21 0405 02/04/21 220 AST 47* 34* ALT 23 26 ALKPHOS 313* 222* BILITOT 0.4 0.6 BILIDIR 0.2 -- Recent Labs 02/10/21 0338 02/09/21 1127 02/09/21 0355 CALCIUM 7.9* 7.8* 8.0* MAGNESIUM 0.85 0.87 0.67* Recent Labs 02/04/21 220 INR 1.2 PT 13.6* PTT 29 Recent Labs 02/08/21 0405 02/05/21 0610 02/04/21 220 TROPONINT 0.03* 0.03* 0.03* ProBNP Date Value Ref Range Status 02/04/2021 >35,000 (H) <=124 pg/mL Final Assessment/Recommendations: 65-year-old female with hypertension and diabetes complex GI history and recent presentation for post ERCP pancreatitis complicated by acute decompensated heart failure with new finding of reduced EFto 40% and three-vessel coronary artery disease. She is now doing well after aggressive IV diuresis. Cardiac surgery has evaluated for revascularization and thought she would be high risk for CABG andmore suited to staged multivessel PCI. Dr. Cruz has agreed to outpatient multivessel PCI. She did not present with TX and all her disease appears chronic and she is now well compensated, giving us a chance to let her recover from this current admission prior to PCI. In the meantime we will optimize her goal-directed medical therapy. Recommendations: -Would increase IV lasix to 60 mg BID for 1-2 days prior to starting torsemide 20 mg PO for maintanance -We will discussed the importance of outpatient monitoring of weights and if weight increasing she will need to increase Lasix to 40 mg twice daily and call into the cardiology department. -Please start metoprolol 50 mg succinate daily tomorrow. -Please start on losartan 25 mg this evening. -If blood pressure tolerates would like to start 12.5 mg of spironolactone tomorrow AM. -She will need outpatient monitoring of electrolytes within 1 week of discharge -We will arrange outpatient cardiology follow-up as well as schedule outpatient PCI with Dr. Cruz. - Please start Plavix 75 mg at discharge in anticipation of outpatient PCI. Patient will be discussed with Dr. White cardiology attending. Tutu Mendoza MD [facility] Attending Note I interviewed and examined the patient during comprehensive bedside rounds with the consult team. Iconcur with the summary of interval events, active hospital- focused problem list and plan of care as described in the note below. I personally reviewed the medications, laboratory results, treatment decisions and updated the patient. Art White MD, FACP, FACC Section of Cardiovascular Medicine [facility] Program Administratorwine and spirits clerk [facility] [employer] [facility] * Ghazala Bragg MD - 02/10/2021 6:55 AM EDT Inpatient - Progress Note Admit Date: 02/04/2021 Hospital Day 6 days ID: Toyin Lion??is a 65 y.o.??female??with a medical history of SIMMONS cirrhosis (biopsy confirmed 2007), prior lap-ronnie, HTN, HLD, DMII c/b diabetic neuropathy, GERD, prior TIA, & CKD??III/A2-3??recently discharged after being admitted with pancreatitis re-presenting with shortness of breath and volume overload. Problem List: Active Hospital Problems Diagnosis ??? Acute exacerbation of congestive heart failure ??? HFrEF (heart failure with reduced ejection fraction) ??? Pancreatic pseudocyst Resolved Hospital Problems Diagnosis Date Resolved ??? Pancreatitis 02/06/2021 Active Non-Hospital Problems Diagnosis ??? PONV (postoperative nausea and vomiting) ??? Cystic duct calculus ??? RUQ pain ??? Anxiety ??? Diabetic neuropathy ??? Nonalcoholic steatohepatitis ??? Restless legs syndrome (RLS) ??? CKD (chronic kidney disease) ??? Delirium ??? Hyperlipidemia ??? Hypertension ??? Diabetes mellitus type 2, uncomplicated ??? Hx-TIA (transient ischemic attack) ??? GERD (gastroesophageal reflux disease) ??? Environmental allergies 24 Hour Events: - Reports feeling okay this morning. Denies chest pain, seeing slowly improvements in SOB. - Diarrhea reported previously has improved Physical Exam: Last Set of Vitals and range of vitals over past 24 hours: Last value Range last 24 hrs Temperature Temp: 36.8 ??C (98.2 ??F) Temp: [36.8 ??C (98.2 ??F)-37.1 ??C (98.8 ??F)] Heart Rate Heart Rate: 92 Heart Rate: -- Blood Pressure BP: 114/55 BP: (114-143)/(53-72) Respiratory Rate Resp: 18 Resp: [16-20] SpO2 SpO2: 91 % SpO2: [91 %-95 %] Patient Vitals for the past 168 hrs: Weight 02/10/21 0317 85.2 kg (187 lb 12.8 oz) 02/09/21 0559 85.2 kg (187 lb 13.3 oz) 02/07/21 0700 88.9 kg (195 lb 15.8 oz) 02/04/21 2115 93.8 kg (206 lb 12.7 oz) Gen: Alert & oriented x3, NAD, well nourished CV: Regular rate and rhythm, no murmurs/rubs/gallops, 2+ radial/DP pulses; 2+ bilateral lower extremity pitting edema Pulm: bibasilar crackles present but improved as compared with prior exams Abd: Soft non-tender, non distended Ext: 2-3+ pitting edema to the knees, improving Neuro: Grossly intact, moving all four extremities. Skin: Warm, dry, no rashes Intake/Output Summary (Last 24 hours) at 02/10/2021 0655 Last data filed at 02/10/2021 0631 Gross per 24 hour Intake 611 ml Output 2925 ml Net -2314 ml Laboratory (Last 24 Hours): Last 3 wbc, hgb, hct plt Recent Labs 02/10/21 0338 02/09/21 0355 02/08/21 0405 WBC 10.4* 11.2* 12.3* HGB 9.2* 8.5* 8.0* HCT 28.0* 26.8* 24.3* PLATELET 344 283 248 Last 3 Lytes Recent Labs 02/10/21 0338 02/09/21 1127 02/09/21 0355 NA 132* 131* 135 K Not Perf 3.9 4.0 CL 91* 92* 94* CO2 32* 30 31 BUN 19* 19* 20* CREATININE 0.99 1.09 1.07 Last Ca, Mg, Phos Recent Labs 02/10/21 0338 CALCIUM 7.9* MAGNESIUM 0.85 Last 3 ProBNP, Trop, CK Recent Labs 02/08/21 0405 02/05/21 0610 02/04/21 2200 TROPONINT 0.03* 0.03* 0.03* PROBNP -- -- >35,000* Microbiology: Blood Culture: NGTD COVID negative Radiology: XR Chest One View Final Result 1. Decreased pulmonary vascular congestion and interstitial edema compared to 02/04/2021. 2. No new focal consolidation. 3. No pleural effusions. Thank you for letting us participate in the care of this patient. If you are a health care provider and have any questions regarding this report, please contact the number below. For patients who have questions please contact the health day care attendant that requested your imaging first. Electronically signed by: Darren Bull MD, [facility] ([phone]), at 02/08/2021 8:04 AM Cardiac Catheterization Final Result CARDIAC CATH CASE REQUEST: CARDIAC CATHETERIZATION (Results Pending) Other Studies: Echo 02/05 SUMMARY: ?? 1. The left ventricular chamber [...] atrium is moderately dilated. The right atrium appearsnormal. 4. The aortic valve is tricuspid. Mild [...] is a greater than 50% respiratory change inthe inferior vena cava dimension. 7. There is no prior study in our system available for comparison. Cardiac Cath 02/07 Conclusions: * Three vessel coronary artery disease (LAD, LCX and RCA) * Elevated left ventricular end diastolic pressure Assessment: Toyin Lion??is a 65 y.o.??female??with a medical history of [...] EF reduced onecho, consistent with CHF exacerbation. Today Ms. Lion feels better than yesterday, and continues to diurese effectively on BID IV Lasix. She remains approximately 20 lbs above dry weight, and we will continue to monitor and replete electrolytes as IV diuresis continues. Continuing supplementation with PO magnesium. Will continue to discuss timing of PCI and ?need for pre-intervention DAPT with cardiology. Rest of plan as below #HFrEF with new WMAs Cath showing 3-vessel disease, most severe in the LAD distribution - patient poor surgical candidate for CABG - planning LAD PCI, no urgent need for procedure - CT surgery consulted, recs appreciated - Cardiology consulted, recs appreciated - continue ASA 81, Atorvastatin 80 mg qd - plan to initiate Lisinopril once patient more effectively diuresed #Volume overload 2/2 CHF exacerbation - increase IV Lasix frequency to TID, check BMP TID, for more effective diuresis - continue 2L fluid restriction to promote more effective diuresis - replete electrolytes K>4, Mg>1 ? #leukocytosis, improving - stable from prior, thought to be reactive rather than infectious - hold off on antibiotics ?? #gallstone pancreatitis #loculated fluid collection - pain control with prn oxycodone - nausea control with prn Tigan - scheduled carafate - avoid fluids if possible - planned for outpatient management ?? #hx of constipation - sloane-colace - miralax - prn mag citrate #Home Meds - increase Cymbalta from 30 mg qd to 60 mg qd for improved mood control - continue atorvastatin - continue Gabapentin 200 mg BID, 100 mg at noon ?? #Housekeeping: - DVT PPx: SQH - GI PPx: protonix - Diet: CHO Level 2, 2gm Na, 2L fluid restriction - Level of care: floor - Vitals: q4h Ghazala Bragg MD 02/10/2021 Associated attestation - Jonelle Redman MD - 02/10/2021 11:22 PM EDT Attending Attestation Please see Dr. Bragg's note for details of the patient history of presentation and data. I have discussed, reviewed and agree with the documented History, Physical findings, Assessment and Plan ofcare. I have examined the patient myself and personally reviewed all studies. 65F PMHx SIMMONS cirrhosis, HTN, HLD, DM, GERD, CKD III who was admitted on 02/04 for shortness of breath and 40 pound weight gain with signs and symptoms of volume overload. Workup showed acute decompensated heart failure with echo showing new WMA.Cardiac workup showed 3VD but cardiac surgery recommends medical management with PCI. She continues to receive aggressive IV diuresis with baseline weight still off 20 pounds. Will needdaily weights and strict I/Os. Vitals have been stable. In addition, I certify that I am a D-H credentialed attending provider with admitting privileges and that the patient meets or has met medical necessity to require an inpatient IPI level of care meeting a minimum of two midnights or is on the [facility] inpatient only procedure list (status C) due to: monitoring of fluid status given an inability to regulate fluid balance and the need for administrationor restriction of fluids Jonelle Redman MD * Ghazala Bragg MD - 02/09/2021 6:28 AM EDT Inpatient - Progress Note Admit Date: 02/04/2021 Hospital Day 5 days ID: Toyin Lion??is a 65 y.o.??female??with a medical history of SIMMONS cirrhosis (biopsy confirmed 2007), prior lap-ronnie, HTN, HLD, DMII c/b diabetic neuropathy, GERD, prior TIA, & CKD??III/A2-3??recently discharged after being admitted with pancreatitis re-presenting with shortness of breath and volume overload. Problem List: Active Hospital Problems Diagnosis ??? Acute exacerbation of congestive heart failure ??? HFrEF (heart failure with reduced ejection fraction) ??? Pancreatic pseudocyst Resolved Hospital Problems Diagnosis Date Resolved ??? Pancreatitis 02/06/2021 Active Non-Hospital Problems Diagnosis ??? PONV (postoperative nausea and vomiting) ??? Cystic duct calculus ??? RUQ pain ??? Anxiety ??? Diabetic neuropathy ??? Nonalcoholic steatohepatitis ??? Restless legs syndrome (RLS) ??? CKD (chronic kidney disease) ??? Delirium ??? Hyperlipidemia ??? Hypertension ??? Diabetes mellitus type 2, uncomplicated ??? Hx-TIA (transient ischemic attack) ??? GERD (gastroesophageal reflux disease) ??? Environmental allergies 24 Hour Events: - Reports feeling okay this morning. Denies chest pain, seeing slowly improvements in SOB. - Diarrhea reported previously has improved Physical Exam: Last Set of Vitals and range of vitals over past 24 hours: Last value Range last 24 hrs Temperature Temp: 37 ??C (98.6 ??F) Temp: [36.6 ??C (97.9 ??F)-37 ??C (98.6 ??F)] Heart Rate Heart Rate: 92 Heart Rate: -- Blood Pressure BP: 130/72 BP: (115-143)/(59-73) Respiratory Rate Resp: 19 Resp: [18-19] SpO2 SpO2: 93 % SpO2: [92 %-97 %] Patient Vitals for the past 168 hrs: Weight 02/09/21 0559 85.2 kg (187 lb 13.3 oz) 02/07/21 0700 88.9 kg (195 lb 15.8 oz) 02/04/21 2115 93.8 kg (206 lb 12.7 oz) Gen: Alert & oriented x3, NAD, well nourished CV: Regular rate and rhythm, no murmurs/rubs/gallops, 2+ radial/DP pulses; 2+ bilateral lower extremity pitting edema Pulm: bibasilar crackles present but improved as compared with prior exams Abd: Soft non-tender, non distended Ext: 2-3+ pitting edema to the knees, improving Neuro: Grossly intact, moving all four extremities. Skin: Warm, dry, no rashes Intake/Output Summary (Last 24 hours) at 02/09/2021 0853 Last data filed at 02/09/2021 0700 Gross per 24 hour Intake 1150 ml Output 2400 ml Net -1250 ml Laboratory (Last 24 Hours): Last 3 wbc, hgb, hct plt Recent Labs 02/09/21 0355 02/08/21 0405 02/07/21 0349 WBC 11.2* 12.3* 14.3* HGB 8.5* 8.0* 9.8* HCT 26.8* 24.3* 29.1* PLATELET 283 248 232 Last 3 Lytes Recent Labs 02/09/21 0355 02/08/21 1119 02/08/21 0405 NA 135 134* 133* K 4.0 4.0 3.5 CL 94* 93* 94* CO2 31 32* 31 BUN 20* 22* 23* CREATININE 1.07 1.10 1.11 Last Ca, Mg, Phos Recent Labs 02/09/21 0355 CALCIUM 8.0* MAGNESIUM 0.67* Last 3 ProBNP, Trop, CK Recent Labs 02/08/21 0405 02/05/21 0610 02/04/21 2200 TROPONINT 0.03* 0.03* 0.03* PROBNP -- -- >35,000* Microbiology: Blood Culture: NGTD COVID negative Radiology: XR Chest One View Final Result 1. Decreased pulmonary vascular congestion and interstitial edema compared to 02/04/2021. 2. No new focal consolidation. 3. No pleural effusions. Thank you for letting us participate in the care of this patient. If you are a health care provider and have any questions regarding this report, please contact the number below. For patients who have questions please contact the health day care attendant that requested your imaging first. Electronically signed by: Darren Bull MD, [facility] ([phone]), at 02/08/2021 8:04 AM Cardiac Catheterization Final Result CARDIAC CATH CASE REQUEST: CARDIAC CATHETERIZATION (Results Pending) Other Studies: Echo 02/05 SUMMARY: ?? 1. The left ventricular chamber [...] is a greater than 50% respiratory change inthe inferior vena cava dimension. 7. There is no prior study in our system available for comparison. Cardiac Cath 02/07 Conclusions: * Three vessel coronary artery disease (LAD, LCX and RCA) * Elevated left ventricular end diastolic pressure Assessment: Toyin Lion??is a 65 y.o.??female??with a medical history of [...] EF reduced onecho, consistent with CHF exacerbation. Today Ms. Lion feels better than yesterday, and continues to diurese effectively on BID IV Lasix. She remains approximately 20 lbs above dry weight, and we will continue to monitor and replete electrolytes as IV diuresis continues. Initiating PO magnesium supplementation today. Will continue to discuss timing of PCI and ?need for pre-intervention DAPT with cardiology. Rest of plan as below #HFrEF with new WMAs Cath showing 3-vessel disease, most severe in the LAD distribution - patient poor surgical candidate for CABG - planning LAD PCI, not acute - CT surgery consulted, recs appreciated - Cardiology consulted, recs appreciated - continue ASA 81, Atorvastatin 80 mg qd - plan to initiate Lisinopril once patient more effectively diuresed #Volume overload 2/2 CHF exacerbation - continue BID Lasix with prn boluses to reach goal NN 2L q24h - will fluid restrict today (2L) to promote more effective diuresis - replete electrolytes K>4, Mg>1 ? #leukocytosis, improving - stable from prior, thought to be reactive rather than infectious - hold off on antibiotics ?? #gallstone pancreatitis #loculated fluid collection - pain control with prn oxycodone - nausea control with prn Tigan - scheduled carafate - avoid fluids if possible - planned for outpatient management ?? #hx of constipation - sloane-colace - miralax - prn mag citrate #Home Meds - increase Cymbalta from 30 mg qd to 60 mg qd for improved mod control - continue atorvastatin - continue Gabapentin 200 mg BID, 100 mg at noon ?? #Housekeeping: - DVT PPx: SQH - GI PPx: protonix - Diet: CHO Level 2, 2gm Na, 2L fluid restriction - Level of care: floor - Vitals: q4h Ghazala Bragg MD 02/09/2021 Associated attestation - Jonelle Redman MD - 02/09/2021 3:56 PM EDT Attending Attestation Please see Dr. Bragg's note for details of the patient history of presentation and data. I have discussed, reviewed and agree with the documented History, Physical findings, Assessment and Plan ofcare. I have examined the patient myself and personally reviewed all studies. 65F PMHx SIMMONS cirrhosis, HTN, HLD, DM, GERD, CKD III who was admitted on 02/04 for shortness of breath and 40 pound weight gain with signs and symptoms of volume overload. Workup showed acute decompensated heart failure with echo showing new WMA.Cardiac workup showed 3VD but cardiac surgery recommends medical management with PCI. She is still on aggressive IV diuresis. Creatinine and BUN are stable. PLAN: Continue IV lasix BID Trend electrolytes Salt and fluid restriction Taper O2 Weigh daily Home when medically ready - would benefit from CHF team follow up In addition, I certify that I am a D-H credentialed attending provider with admitting privileges and that the patient meets or has met medical necessity to require an inpatient IPI level of care meeting a minimum of two midnights or is on the [facility] inpatient only procedure list (status C) due to: monitoring of fluid status given an inability to regulate fluid balance and the need for administrationor restriction of fluids Jonelle Redman MD * Jazzy Back RN - 02/08/2021 1:33 PM EDT Pt reports 7/10 CP this morning, not radiating. States she has been having it on and off since early this morning. VSS at this time. Tele unchanged. MD notified, came to bedside. Pt reports DAVIS, ongoing, not new today. Pt also reports pain in back, abdomen, and legs. See MAR for meds given. Pain down to 4/10. Voiding independently in bathroom. IV lasix. Safety maintained. Will continue to monitor. * Freddie Montes MD - 02/08/2021 1:28 PM EDT Inpatient - Progress Note Admit Date: 02/04/2021 Hospital Day 4 days ID: Toyin Lion??is a 65 y.o.??female??with a medical history of SIMMONS cirrhosis (biopsy confirmed 2007), prior lap-ronnie, HTN, HLD, DMII c/b diabetic neuropathy, GERD, prior TIA, & CKD??III/A2-3??recently discharged after being admitted with pancreatitis re-presenting with shortness of breath and volume overload. Problem List: Active Hospital Problems Diagnosis ??? Acute exacerbation of congestive heart failure ??? HFrEF (heart failure with reduced ejection fraction) ??? Pancreatic pseudocyst Resolved Hospital Problems Diagnosis Date Resolved ??? Pancreatitis 02/06/2021 Active Non-Hospital Problems Diagnosis ??? PONV (postoperative nausea and vomiting) ??? Cystic duct calculus ??? RUQ pain ??? Anxiety ??? Diabetic neuropathy ??? Nonalcoholic steatohepatitis ??? Restless legs syndrome (RLS) ??? CKD (chronic kidney disease) ??? Delirium ??? Hyperlipidemia ??? Hypertension ??? Diabetes mellitus type 2, uncomplicated ??? Hx-TIA (transient ischemic attack) ??? GERD (gastroesophageal reflux disease) ??? Environmental allergies 24 Hour Events: - Chest pain overnight. EKG checked. Troponins flat. Tele unchanged. - Cath yesterday showing 3 vessel disease. Plan for eval by CT Surgery - Some bleeding from radial artery early in night that resolved - Feels miserable this morning. Complaining of mid-sternal chest pain without radiation, mid-backpain, and RUQ tenderness. Physical Exam: Last Set of Vitals and range of vitals over past 24 hours: Last value Range last 24 hrs Temperature Temp: 36.8 ??C (98.2 ??F) Temp: [36.8 ??C (98.2 ??F)-37.1 ??C (98.8 ??F)] Heart Rate Heart Rate: 92 Heart Rate: [89-96] Blood Pressure BP: 132/65 BP: (108-149)/(54-83) Respiratory Rate Resp: 16 Resp: [13-20] SpO2 SpO2: 92 % SpO2: [80 %-96 %] Patient Vitals for the past 168 hrs: Weight 02/07/21 0700 88.9 kg (195 lb 15.8 oz) 02/04/21 2115 93.8 kg (206 lb 12.7 oz) Gen: Alert & oriented x3, NAD, well nourished CV: Regular rate and rhythm, no murmurs/rubs/gallops, 2+ radial/DP pulses; 2+ bilateral lower extremity pitting edema Pulm: bibasilar crackles present but improved as compared with yesterday Abd: Soft non-tender, non distended Ext: 2-3+ pitting edema to the knees, improving Neuro: Grossly intact, moving all four extremities. Skin: Warm, dry, no rashes Intake/Output Summary (Last 24 hours) at 02/08/2021 0752 Last data filed at 02/08/2021 0700 Gross per 24 hour Intake 300 ml Output 1750 ml Net -1450 ml Laboratory (Last 24 Hours): Last 3 wbc, hgb, hct plt Recent Labs 02/08/21 0405 02/07/21 0349 02/06/21 0155 WBC 12.3* 14.3* 14.4* HGB 8.0* 9.8* 9.2* HCT 24.3* 29.1* 27.2* PLATELET 248 232 232 Last 3 Lytes Recent Labs 02/08/21 0405 02/07/21 1203 02/07/21 0349 NA 133* 132* 132* K 3.5 3.5 3.3* CL 94* 93* 93* CO2 31 30 29 BUN 23* 23* 24* CREATININE 1.11 1.11 1.19 Last Ca, Mg, Phos Recent Labs 02/08/21 0405 CALCIUM 7.7* MAGNESIUM 0.66* Last 3 ProBNP, Trop, CK Recent Labs 02/08/21 0405 02/05/21 0610 02/04/21 2200 TROPONINT 0.03* 0.03* 0.03* PROBNP -- -- >35,000* Microbiology: Blood Culture: NGTD COVID negative Radiology: Cardiac Catheterization Final Result CARDIAC CATH CASE REQUEST: CARDIAC CATHETERIZATION (Results Pending) XR Chest One View (Results Pending) Other Studies: Echo 02/05 SUMMARY: ?? 1. The left ventricular chamber [...] is a greater than 50% respiratory change inthe inferior vena cava dimension. 7. There is no prior study in our system available for comparison. Assessment: Toyin Lion??is a 65 y.o.??female??with a medical history of [...] EF reduced onecho, consistent with CHF exacerbation. Today, Ms. Lion is feeling unwell from an unclear etiology. Her chest pain does not appear to becardiac in nature given her flat troponins and normal EKG and tele monitoring. Her back pain would be concerning for aortic dissection, but this seems unlikely given her normal BP. Given the RUQ pain, this may be ongoing pain from her pancreatitis. We will manage her pain with oxycodone and will try adding sucralfate to address any portion of GERD that may be causing her pain. We will continue to diurese her for her HFrEF and will await discussion between cardiology and CT surgery to determine the timing of her PCI vs CABG. Rest of plan as below #HFrEF with new WMAs Ischemia vs. Stress cardiomyopathy - CT surgery consulted, recs appreciated - Cardiology consulted, recs appreciated - continue ASA 81, Atorvastatin 80 mg qd #Volume overload 2/2 CHF exacerbation - continue BID Lasix with prn boluses to reach goal NN 2L q24h - replete electrolytes K>4, Mg>1 ? #leukocytosis, improving - stable from prior, thought to be reactive rather than infectious - hold off on antibiotics ?? #gallstone pancreatitis #loculated fluid collection - pain control with prn oxycodone - nausea control with prn Tigan - scheduled carafate - avoid fluids if possible - planned for outpatient management ?? #hx of constipation - sloane-colace - miralax - prn mag citrate #Home Meds - increase Cymbalta from 30 mg qd to 60 mg qd for improved mod control - continue atorvastatin - continue Gabapentin 200 mg BID, 100 mg at noon ?? #Housekeeping: - DVT PPx: SQH - GI PPx: protonix - Diet: NPO for cath - Level of care: floor - Vitals: q4h Freddie Montes MD 02/08/2021 Associated attestation - Travis Callahan MD - 02/08/2021 3:36 PM EDT Attending Attestation Please see Dr Montes's note for details of the patient history of presentation and data. I have discussed, reviewed and agree with the documented History, Physical findings, Assessment and Plan of care. I have examined the patient myself and personally reviewed all studies. In addition, I certify thatI am a D-H credentialed attending provider with admitting privileges and that the patient meets or has met medical necessity to require an inpatient IPI level of care meeting a minimum of two midnights or is on the [facility] inpatient only procedure list (status C) due to: exacerbation of heart failure requiring IV diuresis; work up for ischemic coronary disease Appreciate cardiac surgery input; it appears the most attractive strategy for her stable coronary ischemic will be outpatient PCI. We will ensure she is discharged on an ACEI when medically ready andwill ask cardiology if they would prefer clopidogrel be started this admission for deferred until coronary intervention. Chest/abdominal/back pain this morning. RUQ tenderness on exam, no bleeding around R radial access site for coronary cath. EKG, tele, CXR unrevealing. Trop unchanged at 0.03 for several days. Will monitor closely for evidence of symptomatic coronary ischemia and treat symptomatically in the meantime. Principal Problem: Acute exacerbation of congestive heart failure Active Problems: Pancreatic pseudocyst HFrEF (heart failure with reduced ejection fraction) Travis Callahan MD 02/08/2021 3:27 PM * Ghazala Bragg MD - 02/07/2021 7:35 AM EDT Inpatient - Progress Note Admit Date: 02/04/2021 Hospital Day 3 days ID: Toyin Lion??is a 65 y.o.??female??with a medical history of SIMMONS cirrhosis (biopsy confirmed 2007), prior lap-ronnie, HTN, HLD, DMII c/b diabetic neuropathy, GERD, prior TIA, & CKD??III/A2-3??recently discharged after being admitted with pancreatitis re-presenting with shortness of breath and volume overload. Problem List: Active Hospital Problems Diagnosis ??? Acute exacerbation of congestive heart failure ??? HFrEF (heart failure with reduced ejection fraction) ??? Pancreatic pseudocyst Resolved Hospital Problems Diagnosis Date Resolved ??? Pancreatitis 02/06/2021 Active Non-Hospital Problems Diagnosis ??? PONV (postoperative nausea and vomiting) ??? Cystic duct calculus ??? RUQ pain ??? Anxiety ??? Diabetic neuropathy ??? Nonalcoholic steatohepatitis ??? Restless legs syndrome (RLS) ??? CKD (chronic kidney disease) ??? Delirium ??? Hyperlipidemia ??? Hypertension ??? Diabetes mellitus type 2, uncomplicated ??? Hx-TIA (transient ischemic attack) ??? GERD (gastroesophageal reflux disease) ??? Environmental allergies 24 Hour Events: - NAEO. - Noted to have new WMAs on TTE as compared with OSH echo report from 06/2020 obtained yesterday; cards consulted an planning on cath today - metoprolol and increased atorvastatin dose initiated yesterday as GDMT for HFrEF; holding additional therapies (ACEi) until post-cath - Continuing to diurese effectively with scheduled 40 mg IV Lasix BID with PRN boluses to reach goal ~2L NN - abdominal pain well controlled with ice/heat Physical Exam: Last Set of Vitals and range of vitals over past 24 hours: Last value Range last 24 hrs Temperature Temp: 37 ??C (98.6 ??F) Temp: [36.5 ??C (97.7 ??F)-38 ??C (100.4 ??F)] Heart Rate Heart Rate: (!) 101 Heart Rate: [97-112] Blood Pressure BP: 136/74 BP: (126-156)/(62-98) Respiratory Rate Resp: 14 Resp: [11-21] SpO2 SpO2: 94 % SpO2: [93 %-97 %] Physical Exam Gen: Alert & oriented x3, NAD, well nourished CV: Regular rate and rhythm, no murmurs/rubs/gallops, 2+ radial/DP pulses; 2+ bilateral lower extremity pitting edema Pulm: bibasilar crackles present but improved as compared with yesterday Abd: Soft non-tender, non distended Ext: 2-3+ pitting edema to the knees Neuro: Grossly intact, moving all four extremities. Skin: Warm, dry, no rashes Laboratory (Last 24 Hours): Last 3 wbc, hgb, hct plt Recent Labs 02/07/21 0349 02/06/21 0155 02/05/21 0610 WBC 14.3* 14.4* 19.3* HGB 9.8* 9.2* 10.3* HCT 29.1* 27.2* 30.6* PLATELET 232 232 279 Last 3 Lytes Recent Labs 02/07/21 0349 02/06/21 1332 02/06/21 0155 NA 132* 132* 134* K 3.3* 4.1 3.7 CL 93* 95* 96* CO2 29 27 27 BUN 24* 24* 24* CREATININE 1.19 1.30* 1.27* Last Ca, Mg, Phos Recent Labs 02/07/21 0349 CALCIUM 8.1* MAGNESIUM 0.72 Last 3 ProBNP, Trop, CK Recent Labs 02/05/21 0610 02/04/21 2200 TROPONINT 0.03* 0.03* PROBNP -- >35,000* Microbiology: Blood Culture: NGTD COVID negative Radiology: No orders to display Other Studies: Echo 02/05 SUMMARY: ?? 1. The left ventricular chamber [...] is a greater than 50% respiratory change inthe inferior vena cava dimension. 7. There is no prior study in our system available for comparison. Assessment: Toyin Lion??is a 65 y.o.??female??with a medical history of [...] and she has denied chest pain throughout admission. TTEhere reveals reduced EF with WMAs concerning for ischemia in the LAD distribution vs stress cardiomyopathy given apical kinesis demonstrated on Echo. Plan for laboratory development technician this afternoon. Per Gen surg, cardiac intervention and DAPT therapy would not be a barrier to future abdominal procedure. Finally, she is down 10 lbs over the course of admission and continues to show clinical improvementwith IV diuresis, which we will continue as we keep a close eye on electrolytes. #HFrEF with new WMAs Ischemia vs. Stress cardiomyopathy - cath this afternoon - patient loaded with 324mg ASA this morning - continue ASA 81, Atorvastatin 80 mg qd #Volume overload 2/2 CHF exacerbation - continue BID Lasix with prn boluses to reach goal NN 2L q24h - replete electrolytes K>4, Mg>1 ?? #troponinemia #reduced EF with WMAs, unclear chronicity - troponin flat at 2019 Echo requested - Cards consult if WMAs new ?? #leukocytosis, improving - stable from prior, thought to be reactive rather than infectious - hold off on antibiotics ?? #gallstone pancreatitis #loculated fluid collection - pain control with prn oxycodone - nausea control with prn Tigan - avoid fluids if possible - planned for outpatient management ?? #hx of constipation - sloane-colace - miralax - prn mag citrate #Home Meds - increase Cymbalta from 30 mg qd to 60 mg qd for improved mod control - continue atorvastatin - continue Gabapentin 200 mg BID, 100 mg at noon ?? #Housekeeping: - DVT PPx: SQH - GI PPx: protonix - Diet: NPO for cath - Level of care: floor - Vitals: q4h Ghazala Bragg MD 02/07/2021 Associated attestation - Travis Callahan MD - 02/08/2021 3:25 PM EDT Attending Attestation Please see Dr Bragg's note for details of the patient history of presentation and data. I have discussed, reviewed and agree with the documented History, Physical findings, Assessment and Plan of care. I have examined the patient myself and personally reviewed all studies. In addition, I certify thatI am a [facility]-H credentialed attending provider with admitting privileges and that the patient meets or has met medical necessity to require an inpatient IPI level of care meeting a minimum of two midnights or is on the [facility] inpatient only procedure list (status C) due to: acute exacerbation of heart failure requiring IV diuresis Ongoing good response to IV diuresis. She went for a cardiac catheterization today that showed three vessel coronary atherosclerosis, worst in the LAD. LVEDP was 20 mmHg. Given her 3v disease, she is a potential candidate for CABG. Appreciate cardiology reaching out to cardiac surgery. With respect to GDMT, we will continue metoprolol, aspirin, and statin for now. We will hold ACEI and clopidogrel in the unlikely event that she will undergo cardiac surgery this admission. Principal Problem: Acute exacerbation of congestive heart failure Active Problems: Pancreatic pseudocyst HFrEF (heart failure with reduced ejection fraction) Trvais Callahan MD 02/08/2021 3:18 PM * Radha Casas RN - 02/06/2021 10:23 PM EDT Pt was AOX4, on RA. PERRLA. VSS. She was transferred to [address] [place] [address] at about 2150. * Glenys Belcher, PT - 02/06/2021 3:02 PM EDT Physical Therapy Evaluation Patient profile: Toyin Lion is a 65 y.o. female with a medical history of SIMMONS cirrhosis (biopsy confirmed 2007), prior lap-ronnie, HTN, HLD, DMII c/b diabetic neuropathy, GERD, prior TIA, & CKD??III/A2-3??recently discharged after being admitted with pancreatitis re-presenting with shortness of breath and volume overload. Patient with the following active problems: Past Medical History: Diagnosis Date ??? CKD [...] ERCP performed by Eliel Leigh MD at [facility] Social History: Home setup: Pt lives alone in a home with 4 LEILANI and a first floor setup with tub shower. Pt will likely d/c to her daughter's home, which has 2-3 LEILANI and a step up to reach the living room. The bathroom has a tub shower. Baseline Mobility/Prior level of function: Independent with mobility, ADLs and IADLs at baseline. Pt has not been home for more than a day since 01/17 because of recent illnesses and hospitalizations, and is currently functioning below her baseline. Pt feels weaker than usual, has been using a walkerto ambulate, and had assistance from her daughter for dressing and getting in/out of the shower. DME: rolling walker, cane, shower seat Precautions/Special Considerations: fall risk, activity as toney Mobility and Positioning Recommendations: ?? Pt. to utilize rolling walker and supervision for ambulation and transfers with nursing. ?? Please encourage up to chair for meal times as able. ?? Pt encouraged to ambulate frequently with staff, getting into the bathroom for toileting and walking out in the quintero >/= 3 times daily as able. Subjective: ???They're moving me.?? Objective: Pt seen for evaluation today ??? Pain: endorses abdominal pain but does not rate ??? Vital Signs: At Rest With Activity SpO2 (RA) 98% 95% BP (MAP) 106/41 NA HR 98bpm 113-116bpm ?? Mental status: alert, oriented, cooperative ?? Safety Awareness: WFL ?? Command followin% of the time ?? Attention: WFL ?? Vision: wears glasses ?? Musculoskeletal: ROM: B LEs edematous but grossly WFL Strength: B LEs grossly WFL, but weaker compared to pt's baseline per report ?? Bed Mobility: Supine to Sit: modified independent with HOB raised 60 degrees Sit to Supine: NA, pt sat at EOB at end of session ??? Transfers: Sit to Stand: modified independent, rolling walker Stand to Sit: modified independnet, rolling walker Bed to Chair: NA Toilet: modified independent with rolling walker and grab bar ??? Gait: Distance: 160ft Device used: rolling walker Level of assist: supervision Gait mechanics: Steady with use of walker, consistent reciprocal gait pattern, decreased gait speed. Distance limited by fatigue, with pt requesting one brief (<30sec) standing rest break approx shelter through trial. Vital signs stable throughout. ??? Stairs: NA ??? Seated Balance: Static: good, sat at EOB independently Dynamic: good ??? Standing Balance: Static: good without support, pt stood at the sink independently to wash her hands Dynamic / Gait: good with walker ?? Education: patient has been educated on Transfers, Assistive device/technique, Safety , Precautions/protocol, Activity pacing/Energy conservation, Role of therapy and Discharge planning and verbalizes and demonstrates understanding. Patient status, treatment, and mobility recommendations discussed with nursing. Assessment: Pt seen today for physical therapy initial evaluation. Pt presents with pain, decreasedtrunk ROM and flexibility, globally decreased strength and cardiovascular endurance compared to baseline, LE edema, and fatigue. Despite these impairments pt is mobilizing well and ambulated a lap around the unit with a walker and supervision. Pt is still functioning below her independent baseline,feels weaker than usual, and would like to be able to ambulate without a walker. Encouraged pt to continue mobilizing frequently with staff assist and sitting up in a chair at regular intervals throughout the day. Recommend d/c home with family assistance and home health services when medically stable. Pt will benefit from ongoing physical therapy to address the above impairments and facilitate return to PLOF. Discharge Recommendations: Based on the current findings, Anticipated Discharge Disposition (PT): home with assist, home with home health when medically ready for hospital discharge. Consult Recommendations: No other consults recommended at this time. Equipment needs: Patient has all necessary equipment Goals: To be achieved by 02/13/21: 1. Pt. to perform bed mobility independently. 2. Pt. to ambulate 150 feet independently using no assistive device. 3. Pt. to ambulate up/down 2-3 step/stairs using one rail with modified independence. 4. Pt will demonstrate independence with strengthening home exercise program. Plan: Therapy Frequency (PT): 1-3 more times for therapy including bed mobility training, gait training, home exercise program, patient/family education and stair training. 2017 PT Evaluation Code Rationale: ?? Diagnosis & Pertinent Co-Morbidities, personal factors, and present illness affecting Plan of Care: (see above); Additional personal factors or co- morbidities that impact plan: ?? Total # of Factors: 0 1-2 3+ X (admitted with pancreatitis and volume overload; multiple comorbidities; two recent hospitalizations) ?? Examination of body system impairments, functional limitations and behaviors, and/or participation restrictions. Addressing 1-2 elements Addressing 3 + elements Addressing 4 + elements ?? Clinical presentation: See assessment above. Stable/Uncomplicated Evolving/Fluctuating Symptoms Unstable/Unpredictable X ?? Clinical decision making of low complexity based on pt's functional performance as outlined in this evaluation. Time IN / OUT: 9542-5616 Total Minutes, Physical Therapy: 18(eval). Glenys Belcher, PT DPT 02/06/2021 Pager: [phone] Physical Therapy Inpatient Rehabilitation Department * Jenny Auguste, RD - 02/06/2021 12:33 PM EDT Nutrition Initial Note Toyin Lion is a 65 y.o. female with a medical history of SIMMONS cirrhosis (biopsy confirmed 2007), prior lap-ronnie, HTN, HLD, DMII c/b diabetic neuropathy, GERD, prior TIA, & CKD??III/A2-3??recently discharged after being admitted with pancreatitis re-presenting with shortness of breath and volume overload. Reason for intervention: ICU stay Nutrition Recommendations: Suggest level 2 CHO controlled low fat, 2 g Na diet- order pended Pt denies need for diet educ refresher Active Orders Diet Carb Control diet 60/60/75 CHO counting level 2 45 GM FAT (LOW FAT); 2 GM NA Frequency: Effective Now Number of Occurrences: Until Specified Lab Results Component Value Date NA 134 (L) 02/06/2021 K 3.7 02/06/2021 CL 96 (L) 02/06/2021 CO2 27 02/06/2021 BUN 24 (H) 02/06/2021 CREATININE 1.27 (H) 02/06/2021 ESTGFR 44 (L) 02/06/2021 MAGNESIUM 0.68 (L) 02/06/2021 CALCIUM 8.0 (L) 02/06/2021 PHOS 3.5 01/17/2021 AST 34 (H) 02/04/2021 ALT 26 02/04/2021 ALKPHOS 222 (H) 02/04/2021 BILITOT 0.6 02/04/2021 BILIDIR 0.6 (H) 01/28/2021 HA1C 7.0 (H) 01/19/2021 Lab Results Component Value Date POCGLU 185 02/06/2021 POCGLU 166 02/06/2021 POCGLU 193 02/05/2021 Skin Status: Shift Pressure Injury Prevention Occiput: No Injury Thoracic Spine: No Injury Sacral: No Injury Ischial - left: No Injury Ischial - right: No Injury Heel - left: No Injury Heel - right: No Injury Elbow - left: No Injury Elbow - right: No Injury Device Sites: O2 sat monitor, IV sites, ECG Leads, BP Cuff Other Sites: idb Relevant medications: Lipitor, lasix, Lispro w/ meals, bowel meds Last Bowel Movement: 02/06/21 Admit Weight: 93.8 kg Estimated body mass index is 36.63 kg/m?? as calculated from the following: Height as of this encounter: 160 cm (5' 3). Weight as of this encounter: 93.8 kg (206 lb 12.7 oz). [place] Body Weight: 52.2 kg Usual Body Weight: ~75 kg Wt Readings from Last 10 Encounters: 02/04/21 (S) 93.8 kg (206 lb 12.7 oz) 01/29/21 91.9 kg (202 lb 8 oz) 01/17/21 76.7 kg (169 lb) 06/07/20 74.2 kg (163 lb 9.6 oz) 04/12/20 79 kg (174 lb 2.6 oz) 05/25/14 85.3 kg (188 lb) 01/14/12 81.2 kg (179 lb) 05/25/11 86.6 kg (191 lb) Assessment: Estimated needs: Calories: 1500 (~20 kcal/kg UBW) Protein: 60-65 grams (1.2 g/kg IBW) Nutrition Focused Physical Exam (NFPE): Not performed Nutrition intake and intake history/Interview:Pt familiar to Nutrition Services from previous admits when she was instructed on low fat, low Na diet guidelines. Diet hx reflects 2 meals/day with assist from daughter w/ meal prep at times. Wt generally stable ~ 75 kg prior tp fluid retention. Pt currently ordering < est needs nut denies need for supplements. Protein-calorie Malnutrition: Not identified but at risk given recent hospitalizations (Elvia, JPEN J Parenteral Enteral Nutr. 2012 February; 36(3): 273-83) Nutrition to continue to follow up while inpatient JENNY [address] Pager #:[phone] * Alison Hess RN - 02/06/2021 10:12 AM EDT Pt would like to reestablish services with: [facility]. PHONE: [phone] FAX: [phone] Alison Hess RN [facility] Phone [phone] Pager [phone] * Farnaz Gayle, OT - 02/06/2021 8:52 AM EDT Occupational Therapy Evaluation Patient profile: Toyin Lion is a 65 y.o. 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 History of Present Illness: Tyoin was initially admitted 01/17-01/27 with post-ERCP pancreatitis with retained stone in the cysticduct. She was re-admitted from 01/28-02/03 with ongoing abdominal pain found to have a large loculated thick walled collection surrounding her pancreas treated with supportive care discharged with planfor surgery as an outpatient. ?? This evening she was at home and was overall doing well. She was able to eat a normal dinner and goto sleep. She woke up to go to the bathroom and upon rising from the toilet noted severe shortness of breath with inability to get a breath in. She denies any associated chest pain, lightheadedness or dizziness. She has had increasing lower extremity edema since her initial admission in early January and has had an approximately 40lb weight gain since that time. She denies orthopnea or PND, does note that she has a history of KINGSLEY but is not using a CPAP at this time. Her abdominal pain has been appropriately controlled on her pain regimen. She denies any nausea/vomiting. Past Medical History: Diagnosis Date ??? CKD [...] ERCP performed by Eliel Leigh MD at [facility] Social History: Patient lives alone in [place], [place]. She reports one of her daughters lives in [place]. 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 She said she could stay with her if needed Home Setup: 4 steps to enter, can stay on 1st level, has a tub shower; daughter's home has 2-3 LEILANI,1 level, tub shower. DME: shower seat, walker, cane, grab bars Baseline ADL/Mobility: Pt was independent w/ ADL's and IADL's at baseline, though has not been homefor more than a day since 01/17. Pt reports that the last time she was home (02/03), she had trouble getting into/out of the car, daughter stayed with her. She was ambulating w/o a device. She took a shower, but daughter helped her get into the shower and she sat for it. Her daughter needed to help her with getting dressed. Precautions/Special Considerations: at risk to fall Subjective: I am just so tired. I've been up since 5:30 this morning Objective: Seen today for OT evaluation. Cognitive Status/Behavior: ?? Behavior / Mood: alert and cooperative ?? Alert and oriented to: person, place, time and situation ?? Follows commands: 1 step, 100% of the time and requires increased time ?? Attention: difficulty attending to task/directions-reports r/t fatigue and pain medication ?? Safety awareness: appears grossly functional, bed alarm in place as precaution Vision & Perception: ?? corrective lenses part time Communication: WFL Range of motion, strength, coordination: Hand dominance: right Bilateral UEs are within functional limitations for strength/ROM, coordination grossly intact LE limitations: edematous, reports feeling weak Sensation: peripheral neuropathy in tips of fingers and bottom of feet Activities of Daily Living: Self-feeding: independent Grooming: reports she brushed her teeth this morning already standing at the sink w/ SBA and FWW Dressing: LB dressing: unable to draw her Le's up to reach her feet seated (increased edema, hip weakness); discussed potential for gas distribution plant operator/sockaid; UB dressing: seated w/ setup and EOB Bathing: min A, assist for shower transfer, will provide w/ LH sponge; may benefit from cues for pacing and steam reduction techniques Toileting: Transfer: CGA to SBA Hygiene: reports independent, not observed Functional Mobility: Sit to stand: CGA to SBA w/ FWW Ambulation: pt ambulated in room w/ FWW and CGA to SBA, no loss of balance, limited distance 2/2 fatigue Stand to sit: SBA Sit to supine: supervision, increased time/effort to lift Le's into bed Balance: Sitting balance: good Standing balance:standing w/ FWW with SBA to CGA Vitals: HR: 104-115 w/ activity, Sp01: 96% on RA, BP: 145/74 (92) sitting EOB Pain: denied pain during this session, though reports she took pain medication Skin: not assessed Education: Patient was educated on Role of occupational therapy/rehabilitation, Transfers, Assistive device/technique, ADL, Positioning, Safety, Functional Mobility, Balance, Recommendations and Discharge planning and verbalizes understanding. Patient status, treatment, and mobility recommendations discussed with nursing. Assessment: Pt was seen for an occupational therapy evaluation. Toyin Lion presents with the following performance skill deficits and client factors: decreased activity tolerance, decreased flexibility/ROM secondary to LE edema, decreased strength, decreased standing balance, deconditioning, compromised mobility status and impaired skin integrity. Pt is deconditioned from her baseline and currently requires CGA to min A for tasks. Will provide her with adaptive equipment to assist w/ LB care. If she is to d/c soon, would recommend staying at her daughter's home where she will have more assistance. At this time, pt would also benefit form home PT and OT services, though she may progressduring hospitalization depending on medical interventions. Pt will benefit from further inpatient OT interventions to address performance deficits and maximize participation and independence with occupations of daily living. Equipment needs at discharge: none anticipated Anticipated Discharge Disposition (OT): home with assist(? home health pending progress) Other Recommendations: ?? Transfer to recliner chair as appropriate with FWW and CGA to SBA, ambulate as tolerated with same ?? Encourage participation in ADL's by providing set up A on tray table and physical assist only asneeded. Other Recommendations: No other consults recommended at this time Goals: To be achieved within 1 week, by 02/13/21: 1. Patient will be modified independent for LB dressing. 2. Patient will be modified independent for seated shower. 3. Patient will be modified independent for standing grooming tasks with least restrictive device. 4. Patient will verbalize understanding of energy management strategies. Plan: OT: Therapy Frequency (OT): 2-3 times/wk Planned OT interventions: Role of occupational therapy/rehabilitation, Transfers, Assistive device/technique, Adaptive equipment training, ADL, Exercise, Positioning, Safety, Precautions/Protocol, Functional Mobility, Activity pacing/Energy conservation, Home Management, Balance, Recommendations and Discharge planning. Total Minutes, Occupational Therapy: 23(initial evaluation) 2017 OT Evaluation Code Rationale: ?? Diagnosis & Pertinent Co-Morbidities affecting Plan of Care: see PMHx ?? Occupational Profile & Client History: Brief Expanded Extensive x ?? Assessment of Occupational Performance: 1-3 performance deficits 3-5 performance deficits x 5 + performance deficits ?? Clinical Decision Making: Low Moderate High x Clinical decision making of moderate complexity using standardized patient assessment instrument and measurable assessment of functional outcome. Pager: [phone] FARNAZ GAYLE OT 02/06/2021 Occupational Therapy Rehabilitation Department * Ghazala Bragg MD - 02/06/2021 7:55 AM EDT Inpatient - Progress Note Admit Date: 02/04/2021 Hospital Day 2 days ID: Toyin Lion??is a 65 y.o.??female??with a medical history of SIMMONS cirrhosis (biopsy confirmed 2007), prior lap-ronnie, HTN, HLD, DMII c/b diabetic neuropathy, GERD, prior TIA, & CKD??III/A2-3??recently discharged after being admitted with pancreatitis re-presenting with shortness of breath and volume overload. Problem List: Active Hospital Problems Diagnosis ??? Pancreatitis Resolved Hospital Problems No resolved problems to display. Active Non-Hospital Problems Diagnosis ??? Pancreatic pseudocyst ??? PONV (postoperative nausea and vomiting) ??? Cystic duct calculus ??? RUQ pain ??? Anxiety ??? Diabetic neuropathy ??? Nonalcoholic steatohepatitis ??? Restless legs syndrome (RLS) ??? CKD (chronic kidney disease) ??? Delirium ??? Hyperlipidemia ??? Hypertension ??? Diabetes mellitus type 2, uncomplicated ??? Hx-TIA (transient ischemic attack) ??? GERD (gastroesophageal reflux disease) ??? Environmental allergies 24 Hour Events: NAEO. Physical Exam: Last Set of Vitals and range of vitals over past 24 hours: Last value Range last 24 hrs Temperature Temp: 37.2 ??C (98.9 ??F) Temp: [36.6 ??C (97.9 ??F)-37.9 ??C (100.2 ??F)] Heart Rate Heart Rate: (!) 110 Heart Rate: [91-110] Blood Pressure BP: 147/74 BP: (112-148)/(50-98) Respiratory Rate Resp: 14 Resp: [14-24] SpO2 SpO2: 98 % SpO2: [93 %-98 %] Physical Exam Gen: Alert & oriented x3, NAD, well nourished CV: Regular rate and rhythm, no murmurs/rubs/gallops, 2+ radial/DP pulses; 2+ bilateral lower extremity pitting edema Pulm: bibasilar crackles Abd: Soft non-tender, non distended Ext: 2-3+ pitting edema to the knees Neuro: Grossly intact, moving all four extremities. Skin: Warm, dry, no rashes Laboratory (Last 24 Hours): Last 3 wbc, hgb, hct plt Recent Labs 02/06/21 01502/05/21 0610 02/04/21 2200 WBC 14.4* 19.3* 17.8* HGB 9.2* 10.3* 9.9* HCT 27.2* 30.6* 30.6* PLATELET 232 279 246 Last 3 Lytes Recent Labs 02/06/21 0155 02/05/21 1510 02/05/21 0610 NA 134* 133* 135 K 3.7 3.6 4.0 CL 96* 94* 99 CO2 27 26 25 BUN 24* 23* 23* CREATININE 1.27* 1.28* 1.21* Last Ca, Mg, Phos Recent Labs 02/06/21 015 CALCIUM 8.0* MAGNESIUM 0.68* Last 3 ProBNP, Trop, CK Recent Labs 02/05/21 0610 02/04/21 2200 TROPONINT 0.03* 0.03* PROBNP -- >35,000* Microbiology: Blood Culture: NGTD COVID negative Radiology: No orders to display Other Studies: Echo 02/05 SUMMARY: ?? 1. The left ventricular chamber [...] our system available for comparison. Assessment: Toyin Lion??is a 65 y.o.??female??with a medical history of [...] and she has denied chest pain throughout admission. Echo at OSH revealed EF reduced to 35- 40% which was noted to be a new finding as compared with 06/2020 Echo. Repeat Echo here revealed WMAs, and we have requested the 2019 echo from [facility]. Will consult Cardiology if these are new. Today she is clinically improving with IV Lasix, and we will continue to diurese to goal net negative 2.5L. ?? #Volume overload 2/2 CHF exacerbation - continue BID Lasix with prn boluses to reach goal NN 2.5L - replete electrolytes K>4, Mg>1 ?? #troponinemia #reduced EF with WMAs, unclear chronicity - trend troponins q6h - 2019 Echo requested - Cards consult if WMAs new ?? #leukocytosis - stable from prior, thought to be reactive rather than infectious - hold off on antibiotics ?? #gallstone pancreatitis #loculated fluid collection - pain control with prn oxycodone - nausea control with prn Tigan - avoid fluids if possible - planned for outpatient drainage ?? #hx of constipation - sloane-colace - miralax - prn mag citrate #Home Meds - increase Cymbalta from 30 mg qd to 60 mg qd for improved mod control - continue atorvastatin - continue Gabapentin 200 mg BID, 100 mg at noon ?? #Housekeeping: - DVT PPx: SQH - GI PPx: protonix - Diet: regular - Level of care: floor - Vitals: q4h Ghazala Bragg MD 02/06/2021 Associated attestation - Travis Callahan MD - 02/06/2021 1:49 PM EDT Attending Attestation Please see Dr Bragg's note for details of the patient history of presentation and data. I have discussed, reviewed and agree with the documented History, Physical findings, Assessment and Plan of care. I have examined the patient myself and personally reviewed all studies. In addition, I certify thatI am a D-H credentialed attending provider with admitting privileges and that the patient meets or has met medical necessity to require an inpatient IPI level of care meeting a minimum of two midnights or is on the CMS inpatient only procedure list (status C) due to: monitoring of fluid status given an inability to regulate fluid balance and the need for administration or restriction of fluids Symptomatic improvement today after diuresis yesterday. Her breathing is comfortable and she slept well. Echocardiogram shows LVEF = 40%, segmental wall motion abnormalities, notably apical akinesis. Most likely causes for volume overload are new ischemic cardiomyopathy vs stress cardiomyopathy in light of the wall pattern of WMAs on her echo. Today we will continue to diurese and begin initiating GDMT for HFrEF. We will obtain outpatient cardiology records and consider inpatient cardiology consult to assist with ischemic work up. Principal Problem: Volume overload Active Problems: Pancreatic pseudocyst Travis Callahan MD 02/06/2021 1:41 PM * Yamileth Townsend MSW - 02/06/2021 7:48 AM EDTSummary: EXTRUDING MACHINE OPERATOR Consult Office of Care Management Social Work Note Patient: Toyin Lion EXTRUDING MACHINE OPERATOR Consult: Patient has partially completed advanced directive and would like help completing the rest. Thanks! Relevant Information: EXTRUDING MACHINE OPERATOR spoke with patient regarding partially completed AD at home. Patient is going to inquire with daughters to see if one of them can obtain the original and bring to hospital for completion with assistance of EXTRUDING MACHINE OPERATOR. Patient prefers not to start process over again, understandably. EXTRUDING MACHINE OPERATOR left name and contact information on white board in room. Plan: EXTRUDING MACHINE OPERATOR will continue to follow as needs are identified. FRANCE Ramos Pager: [phone] Desk: [phone] * Jazzy Contreras RN - 02/05/2021 5:39 AM EDT OUTCOME EVALUATION NOTE: OUTCOME SUMMARY: Pt arrived from OSH at 2114. NAD. A/OX4. Calm and cooperative. Appeared to rest comfortably betweencare. C/O 6/10 headache and RUQ abd pain. PRN Tylenol X1. VSS. NC 1L. EKG done. 1st degree AV blockand QTC 510. Team aware. BCX2, covid swab, and UA/UC sent. Pt reported SOB improved since OSH. Dietadvanced to CCL2. Tolerating fluid intake. 40 mg IV lasix X1. Able to turn/reposition self in bed. Will cont to monitor and report w/ changes. PLAN MOVING FORWARD: Q6h troponins. Transfer to [facility] when bed available. * Aaron Barry MD - 02/04/2021 11:52 PM EDT Brief Note Patient accepted during the day for respiratory failure from [facility] however on arrival the patient has no ICU needs and appears appropriate for floor level admission. She was just discharged yesterday and thus will be admitted back to the medicine service for further management. See their H&P foradmission plan. In brief, Toyin Lion is a 65 y.o. female with a PMH significant for SIMMONS cirrhosis (biopsy confirmed 2007), prior lap-ronnie, HTN, HLD, DMII c/b diabetic neuropathy, GERD, prior TIA, & CKD??III/A2-3. She was discharged yesterday. She returned to [facility] overnight for hypoxemic respiratory failure. She has been in the hospital most of January for gallstone pancreatitis. Since her initial admission she has gained almost 40 pounds. She has an EF of 35 to 40%. On present patient to [facility] there was concern for pulmonary edema on chest x-ray. She was diuresed and placed briefly on BiPAP. Upon arrival to our MICU she has weaned to 1 L nasal cannula and is satting in the upper 90s. She is talking in full sentences and is not in respiratory distress. Her lungs are largely clear although there are slight crackles at the bases. She does have significant pitting edema bilaterally. She will likely need further diuresis but no longer needs BiPAP or ICU level care for respiratory failure. There was additional concern for infected fluid collection at [facility]. She had a known fluid collection and this was reimaged and it appears larger. Her white count is elevated however has been in a similar range over the past week during her hospitalization here. She tells me that she did not return to the hospital for abdominal pain and says that her pain has been manageable. She returned purely for her shortness of breath. As such, I spoke with the hospital medicine team to give them a signout and they will accept her for admission back to their service. Aaron Barry MD Critical Care Fellow documented in this encounter H&P Notes * Daniel Murphy MD - 02/08/2021 9:28 AM EDT I was asked to review this patient by Cardiology. 65 yo with recent pancreatitis who is readmitted with CHF. ECHO shows LVEF 40% with mild to moderate and MS. She has never had chest pain and is not having chest pain. Cath shows significant LAD disease and more moderate RCA and LCX disease. REcent abdominal CT shows a large evolving pseudocyst,ascites, pancreatic inflammation. Her albumin is 2.3, INR 1.2, PLT 248 SHe has a history of SIMMONS cirrhosis, HTN, DM, obesity, CRI (GFR 40-50). I reviewed the Cath personally. She is currently a very poor candidate [...] would make surgery almost a prohibitive risk. * Bibiana Yarbrough MD - 02/05/2021 12:15 AM EDT Medicine Admission H&P Patient Name: TOYIN LION Date of : 1955 Age: 65 y.o. 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 Toyin was initially admitted 01/17-01/27 with post-ERCP pancreatitis with retained stone in the cysticduct. She was re-admitted from 01/28-02/03 with ongoing abdominal pain found to have a large loculated thick walled collection surrounding her pancreas treated with supportive care discharged with planfor surgery as an outpatient. This evening she was at home and was overall doing well. She was able to eat a normal dinner and goto sleep. She woke up to go to the bathroom and upon rising from the toilet noted severe shortness of breath with inability to get a breath in. She denies any associated chest pain, lightheadedness or dizziness. She has had increasing lower extremity edema since her initial admission in early January and has had an approximately 40lb weight gain since that time. She denies orthopnea or PND, does note that she has a history of KINGSLEY but is not using a CPAP at this time. Her abdominal pain has been appropriately controlled on her pain regimen. She denies any nausea/vomiting. She denies any history of heart or lung disease including heart failure. Her shortness of breath prompted her to present to [facility] where she was found to be tachypneic and sating in the 70s on room air with heart rates in the 150s. Labs were significant for a WBC of 32, initial troponin negative subsequent troponin 0.2, proBNP of >04639. RUQ ultrasound - large complex fluid collection in RUQ CT A/P - large fluid collection in the RUQ of the abdomen suspicious for an abscess - moderate amount of abdominal pelvic free fluid - inflammatory stranding around the pancread - large amount of subcutaneous edema - moderate bilateral pleureal effusions and subjacent infiltrates TTE - LVEF 35-40% WMAs could not be assessed - abnormal diastolic function - PASP 38 CXR - pulmonary venous congestion She was given empiric vanc and cefepime for her leukocytosis and 20mg of IV Lasix and was started on BiPAP. On arrival at [facility] she is hemodynamically stable and sating well on 1L NC. She states that her breathing is improved and is in good spirits. Given this improvement she is being transferred from the ICU to hospital medicine. Review of Systems(Positives in Bold): As above Past Medical History: Past Medical History: Diagnosis Date ??? CKD (chronic kidney disease) 04/05/2020 ??? Delirium 04/05/2020 ??? Diabetes mellitus type 2, uncomplicated 05/14/2014 ??? Hx-TIA (transient ischemic attack) 05/14/2014 ??? Hyperlipidemia 05/28/2014 Off statin due to foot pain side effect ??? Hypertension 05/28/2014 ??? Restless legs syndrome (RLS) 04/05/2020 Patient Active Problem List Diagnosis Code ??? [...] (postoperative nausea and vomiting) R11.2, Z98.890 ??? Pancreatitis K85.90 ??? Pancreatic pseudocyst K86.3 Past Surgical History: Past Surgical History: Procedure Laterality Date ??? PRO ERCP,DIAGNOSTIC N/A 01/17/2021 ERCP performed by Eliel Leigh MD at [facility] Social History: Social History Socioeconomic History ??? [...] Gatherings with Friends and Family: ??? Attends Pentec[employer]ism Services: ??? Active Member of Clubs or Organizations: ??? Attends Club or Organization Meetings: ??? Marital Status: Intimate Partner Violence: ??? Fear of Current or Ex-Partner: ??? Emotionally Abused: ??? Physically Abused: ??? Sexually Abused: Family History: No family history on file. Allergies: Allergies Allergen Reactions ??? Benzodiazepines Other (See Comments) Paradoxical reaction to benzodiazepines ??? House Dust ??? Hydrocodone-Acetaminophen Itching ??? Metoclopramide ??? Mold Extracts ??? Pollen Extracts ??? Propoxyphene Hcl Nausea And Vomiting ??? Unknown [Unclassified Drug] Most environmental allergies: grass, workman, trees,pollen Medications: Medications Prior to Admission Medication Sig Dispense Refill Last Dose ??? oxyCODONE (Roxicodone) 5 mg Tablet Take 1 tablet by mouth every 8 hours as needed for Pain. 15 tablet 0 Unknown at Unknown time ??? polyethylene glycoL (Miralax) 17 gram Powder in Packet Take 17 g by mouth daily. 14 each 0 Unknown at Unknown time ??? acetaminophen (Tylenol) 325 mg Tablet Take 2 tablets by mouth every 4 hours as needed for Pain.30 tablet 1 Unknown at Unknown time ??? calcium carbonate (Tums) 200 mg calcium (500 mg) Tablet, Chewable Take 1-2 tablets by mouth every 4 hours as needed for Heartburn. Unknown at Unknown time ??? gabapentin (Neurontin) 100 mg Capsule Take 1 capsule by mouth Daily at Noon. 90 capsule 12 Unknown at Unknown time ??? gabapentin (Neurontin) 100 mg Capsule Take 2 capsules by mouth 2 times daily. 90 capsule 12 Unknown at Unknown time ??? gabapentin (Neurontin) 100 mg Capsule Take 2 capsules by mouth nightly as needed (sciatic leg pain). 90 capsule 12 Unknown at Unknown time ??? atorvastatin (Lipitor) 40 mg Tablet Take 1 tablet by mouth every evening. 90 tablet 3 Unknown at Unknown time ??? metoprolol succinate XL (Toprol-XL) 50 mg Tablet Sustained Release 24 hr Take 1 tablet by mouthdaily. 30 tablet 12 Unknown at Unknown time ??? DULoxetine DR (Cymbalta) 30 mg Capsule, Delayed Release(E.C.) Take 1 capsule by mouth daily. 30tablet 11 Unknown at Unknown time ??? pantoprazole EC (Protonix) 40 mg Tablet, Delayed Release (E.C.) Take 1 tablet by mouth daily. 90 tablet 3 Unknown at Unknown time ??? multivitamin (THERAGRAN) Tablet Take 1 tablet by mouth daily. Unknown at Unknown time ??? mirtazapine (REMERON) 7.5 mg Tablet Take 7.5 mg by mouth nightly. Unknown at Unknown time PHYSICAL EXAM: Last value Range last 24 hrs Temperature Temp: 37 ??C (98.6 ??F) Temp: [36.7 ??C (98.1 ??F)-37 ??C (98.6 ??F)] Heart Rate Heart Rate: 93 Heart Rate: [93-102] Blood Pressure BP: 143/77 BP: (135-149)/(70-80) Respiratory Rate Resp: 11 Resp: [11-19] SpO2 SpO2: 96 % SpO2: [95 %-100 %] No intake/output data recorded. Gen: Alert & oriented x3, NAD, well nourished CV: Regular rate and rhythm, no murmurs/rubs/gallops, 2+ radial/DP pulses; Pulm: bibasilar crackles Abd: Soft non-tender, non distended Ext: 2-3+ pitting edema to the knees Neuro: Grossly intact, moving all four extremities. Skin: Warm, dry, no rashes LABS: Recent Labs 02/04/21 2200 02/03/21 0245 02/02/21 0226 WBC 17.8* 15.3* 14.4* HGB 9.9* 7.9* 7.6* HCT 30.6* 25.2* 23.5* PLATELET 246 207 185 Recent Labs 02/04/21219902/03/21 0245 02/02/21 0226 NA 137 132* 134* K 4.2 4.6 4.6 CL 101 100 102 CO2 26 25 24 BUN 24* 26* 30* CREATININE 1.29* 1.24* 1.18 Recent Labs 02/04/21219902/03/21 0245 02/02/21 0226 CALCIUM 8.4* 8.4* 8.1* Recent Labs 02/04/212199 PT 13.6* PTT 29 Recent Labs 02/04/212199 INR 1.2 Recent Labs 02/04/21219902/03/21 0245 02/02/21 0226 AST 34* 52* 52* ALT 26 34* 33* ALKPHOS 222* 235* 223* BILITOT 0.6 0.6 0.6 Recent Labs 02/04/212199 TROPONINT 0.03* No results for input(s): LDH, URICACID in the last 168 hours. No results for input(s): TSH in the last 7068 hours. Recent Labs 01/19/21 0306 HA1C 7.0* Lab Results Component Value Date CHLPL 229 (H) 08/13/2010 HDL 50 08/13/2010 CHOLHDL 4.6 08/13/2010 TRIG 291 (H) 08/13/2010 LDLCHOL 121 (H) 08/13/2010 Imaging/Diagnostics: As above ASSESSMENT and PLAN: Toyin Lion??is a 65 y.o.??female??with a medical history of SIMMONS cirrhosis (biopsy confirmed 2007), prior lap-ronnie, HTN, HLD, DMII c/b diabetic neuropathy, GERD, prior TIA, & CKD??III/A2-3??recently discharged after being admitted with pancreatitis re-presenting with shortness of breath found to have 40lb weight gain, lower extremity edema, bibasilar crackles, pulmonary vascular congestion, and abdominal wall anasarca consistent with volume overload. She has a mildly elevated troponinand a profoundly elevated proBNP she does not have any chest pain though her EKG does show TWI in V3-V6 these have intermittently been present in the past, suspect demand ischemia rather than true ACS. Will diurese with IV lasix and obtain formal TTE in the am. #volume overload - s/p 20mg of IV Lasix - re-dose 40mg of IV Lasix now - daily standing weights - strict I/Os - replete electrolytes K>4, Mg>1 #troponinemia - trend troponins q6h - TTE in the am #leukocytosis - stable from prior, thought to be reactive rather than infectious - hold off on antibiotics #gallstone pancreatitis #loculated fluid collection - pain control with prn oxycodone - nausea control with prn Tigan - avoid fluids if possible - planned for outpatient drainage #hx of constipation - sloane-colace - miralax - prn mag citrate #Housekeeping: - DVT PPx: SQH - GI PPx: protonic - Diet: regular - Level of care: floor - Vitals: q4h Bibiana Yarbrough MD [facility] Internal Medicine PGY-3 Associated attestation - Travis Callahan MD - 02/06/2021 1:40 PM EDT Attending Attestation Please see Dr Yarbrough's note for details of the patient history of presentation and data. I have discussed, reviewed and agree with the documented History, Physical findings, Assessment and Plan of care. I have examined the patient myself and personally reviewed all studies. In addition, I certify thatI am a D-H credentialed attending provider with admitting privileges and that the patient meets or has met medical necessity to require an inpatient IPI level of care meeting a minimum of two midnights or is on the CMS inpatient only procedure list (status C) due to: monitoring of fluid status given an inability to regulate fluid balance and the need for administration or restriction of fluids and acute respiratory compromise and/or hypoxia requiring assessment every 4 hours and the ability to respond immediately to the patient's need The patient is a 65 year old woman with a history of SIMMONS cirrhosis T2DM, CKD, and recent admissionfor post-ERCP pancreatitis who is being readmitted for acute respiratory distress. Detailed historyrecounted below confirmed with patient and patient's daughter. She denies any chest pain or palpitations during or prior to to her recent hospitalization. On exam she is comfortable on room air, alert and oriented. Heart is regular and without murmur. There are bibasilar crackles. Abdomen is soft and non-tender. There is 2+ pitting edema to the bilateral knees. Labs reviewed. Serum Cr at baseline. Troponin 0.03 x2. BNP > 35,000. WBC elevated at 17.8. CXR from outside hospital reviewed: there is pulmonary vascular congestion and fluid in the fissures. A/P 65 year old woman, history of SIMMONS cirrhosis, HTN, DM, prior TIA, recent admission for pancreatitisbeing readmitted for acute volume overload that likely represents exacerbation of previously unrecognized heart failure. It is unclear if the fluids given for pancreatitis uncovered a previously existing cardiomyopathy or if she had a cardiac event while in the hospital. There is no significant abdominal pain or tenderness at present to suggest worsening of her known pancreatic pseudocyst. We will continue to diurese with a goal 2 liters fluid negative daily. We will obtain an echocardiogram and consider further work up for ischemic vs non- ischemic causes of heart failure based on those results. Principal Problem: Volume overload Active Problems: Pancreatic pseudocyst Travis Callahan MD 02/06/2021 1:40 PM documented in this encounter Miscellaneous Notes * Plan of Care - Vin Hart RN - 02/12/2021 4:05 PM EDT OUTCOME EVALUATION NOTE: OUTCOME SUMMARY: A+Ox4, VSS on RA, pain controlled with scheduled gabapentin, PRN tylenol and PRN oxycodone. Pt experienced 8-9/10 neuropathy pain at start of shift, as well as ankle/foot pain. Spironolactone added today. No IV diuresis administered this shift. PLAN MOVING FORWARD: Strict I/Os 2000mL fluid restriction D/C tomorrow on PO diuretics INDIVIDUALIZED FALL PREVENTION INTERVENTIONS: Patient-specific fall risk factors per assessment: [current deficits]: generalized weakness Assistance [level of assistance required for transfers and ambulation]: independent Supervision [direct monitoring required during toileting and ADLs]: eyes on Surveillance [continuous indirect monitoring]: Routine rounding, call cunningham within reach, masimo, room near nurses station, vital signs per order Patient-specific fall prevention interventions for sensory deficits provided, if applicable: [X] N/A Cardiac/Telemetry Nursing Progress Note [id number] Subjective: no reported cardiac s/s q shift Objective: Vital Signs: See Vital signs below Cardiac Meds: See online MAR Labs: See labs in online chart. Assessment: NSR to ST, 70-110, inverted T-waves seen. Plan: Continue telemetry monitoring. Notify MD of any changes. See Attached Tele Strip. (in green paper chart). Last value Range last 12 hrs Temperature Temp: 37.1 ??C (98.8 ??F) Temp: [36.5 ??C (97.7 ??F)-37.1 ??C (98.8 ??F)] Heart Rate Heart Rate: 92 Heart Rate: -- Blood Pressure BP: 127/62 BP: (99-127)/(48-70) Respiratory Rate Resp: 18 Resp: [16-18] SpO2 SpO2: 97 % SpO2: [90 %-97 %] * Plan of Care - Laura Desai RN - 02/12/2021 12:55 AM EDT OUTCOME EVALUATION NOTE: OUTCOME SUMMARY: Pt remains free from falls/injuries this shift, bed in low position. Pt c/o LAZO rated 8/10- PRN Oxycodone administered w/ positive effect. Pt additionally c/o nausea- PRN Zofran administered. Sleepingbetween care. Call cunningham maintained within reach at all times, pt encouraged to use in order to makeneeds known. Will continue to monitor. PLAN MOVING FORWARD: Telemetry monitoring, diuresis INDIVIDUALIZED FALL PREVENTION INTERVENTIONS: Patient-specific fall risk factors per assessment: [current deficits]: Generalized weakness, IV sites, masimo Assistance [level of assistance required for transfers and ambulation]: 1A w/ walker Supervision [direct monitoring required during toileting and ADLs]: Eyes on Surveillance [continuous indirect monitoring]: Room near unit station, purposeful rounding, bedsidereport Patient-specific fall prevention interventions for sensory deficits provided, if applicable: NA CPG GOAL OUTCOME EVALUATION: * Plan of Care - Blanca Malcolm RN - 02/11/2021 12:39 PM EDT Patient currently resting comfortably in chair with BLE elevated up; CAROLIN stocks remain on. Patient safety to be maintained. OUTCOME EVALUATION NOTE: OUTCOME SUMMARY: Patient alert and oriented x4. Patient reporting BLE pain; given PRN pain medication with positive effect per pt; CAROLIN stocks applied and BLE elevated per MD request. Patient's LS noted to be CTA, SOBnoted with exertion. Patient up to bathroom independently. Patient continues on telemetry per MD orders. Please see full biophysical assessment. Patient comfort and safety to be maintained; will continue to monitor. Care per MD/[facility] orders, purposeful rounding in place. MD to be notified of any changes. PLAN MOVING FORWARD: IV lasix, electrolyte replacement, pain management INDIVIDUALIZED FALL PREVENTION INTERVENTIONS: Patient-specific fall risk factors per assessment: [current deficits]: bed in locked, low position,nonskid socks, call cunningham within reach Assistance [level of assistance required for transfers and ambulation]: independent to bathroom Supervision [direct monitoring required during toileting and ADLs]: independent to bathroom Surveillance [continuous indirect monitoring]: Masimo in place Patient-specific fall prevention interventions for sensory deficits provided, if applicable: [X] Yes CPG GOAL OUTCOME EVALUATION: * Plan of Care - Leeanna Suarez RN - 02/11/2021 4:04 AM EDT OUTCOME EVALUATION NOTE: OUTCOME SUMMARY: Pt stated she was exhausted and needed a good night's rest. Pt was able to fall asleep after receiving her evening meds along with some oxycodone for feet pain due to neuropathy 9/10 pain level. While pt was sleeping, pt's oxygen sats dropped down into the high 80's. Pt was placed on 2 liters NC oxygen and her sats increased to the mid 90's. No c/o shortness of breath, no cough noted. Dr. Ozunanotified of this. Pt stated this morning she is feeling much more rested, pain way down and feels better overall. Pt's weight down 1.49 kg this am from yesterday. Pt states the abdominal pain was a 3 - 4/10. No c/o nausea. + bowel sounds and abdomen soft. No stool overnight. Pt passing urine well, no c/o dysuria. Pt's blood sugar during the evening was 142, no correction bolus ordered. Telemetry: Pt denied any chest pain, skin warm and dry. Pt also denied any dizziness, lightheadedness or feelings of palpitations. Rhythm: NSR Heart rate range 75 - 110. IL interval 0.20; QRS 0.08 to 0.10, QT 0.30 and QTc 0.35 Please refer to tele strips in the chart review section of the pt's medical record under cardiovascular. Pt received her Metoprolol 12.5 mg during the evening as ordered. Last value Range last 12 hrs Temperature Temp: 36.8 ??C (98.2 ??F) Temp: [36.8 ??C (98.2 ??F)-37 ??C (98.6 ??F)] Heart Rate Heart Rate: 92 Heart Rate: -- Blood Pressure BP: 133/69 BP: (133-135)/(69-88) Respiratory Rate Resp: 20 Resp: [18-20] SpO2 SpO2: 98 % SpO2: [87 %-98 %] PLAN MOVING FORWARD: Continue per plan and orders. Emotional support. Allow quiet time for naps/resting. Continue to assess pain and response to pain med. Continue tele as ordered, assess for any change in rhythm, increase or decrease in heart rate. Notify MD of any changes with telemetry. INDIVIDUALIZED FALL PREVENTION INTERVENTIONS: Patient-specific fall risk factors per assessment: [current deficits]: Medium fall risk r/t IV access and more than one diagnosis Assistance [level of assistance required for transfers and ambulation]: Independent Supervision [direct monitoring required during toileting and ADLs]: Eyes on Surveillance [continuous indirect monitoring]: Purposeful Breanna ernst FS QID Patient-specific fall prevention interventions for sensory deficits provided, if applicable: Yes, non-skid slippers on when OOB, have call cunningham within easy reach at all times, clutter free environment, appropriate lighting so pt can easily see to locate items or ambulate. CPG GOAL OUTCOME EVALUATION: * Plan of Care - Blanca Malcolm RN - 02/10/2021 2:28 PM EDT Patient reporting RUQ abdominal pain this afternoon; given PRN pain medication per pt request with positive effect per pt. Patient currently resting comfortably in chair. Safety maintained. OUTCOME EVALUATION NOTE: OUTCOME SUMMARY: Patient alert and oriented x4. Patient reporting RUQ pain; given PRN pain medications per request with positive effect per pt. Patient's LS noted to be CTA; SOB noted with exertion. Patient up to bathroom independently. Please see full assessment. Patient comfort and safety to be maintained; will continue to monitor. Care per MD/[facility] orders, purposeful rounding in place. MD to be notified of any changes. PLAN MOVING FORWARD: IV lasix, electrolyte replacement, pain management INDIVIDUALIZED FALL PREVENTION INTERVENTIONS: Patient-specific fall risk factors per assessment: [current deficits]: bed in locked, low position,call cunningham within reach, nonskid socks, purposeful rounding Assistance [level of assistance required for transfers and ambulation]: independent Supervision [direct monitoring required during toileting and ADLs]: independent Surveillance [continuous indirect monitoring]: Masimo in place Patient-specific fall prevention interventions for sensory deficits provided, if applicable: [X] N/A CPG GOAL OUTCOME EVALUATION: * Plan of Care - Iain Gimenez RN - 02/10/2021 5:52 AM EDT OUTCOME EVALUATION NOTE: OUTCOME SUMMARY: Pt is A/O x4, LS CTA, Telemetry monitored, SR, denies cp, vss, +BS, denies n/v/d, pt up independently to void in BR. Diuresing well (see I/O) Compliant with 2000ml fluid restriction. Pt reported painin BLE knees treated with Tylenol with good effect. WCTM. PLAN MOVING FORWARD: IV electrolyte replacement, IV lasix, pain management INDIVIDUALIZED FALL PREVENTION INTERVENTIONS: Patient-specific fall risk factors per assessment: [current deficits]: bed alarm, bed in locked, low position, nonskid socks, call cunningham within reach Assistance [level of assistance required for transfers and ambulation]: stand by for safety Supervision [direct monitoring required during toileting and ADLs]: assistance Surveillance [continuous indirect monitoring]: Masimo Patient-specific fall prevention interventions for sensory deficits provided, if applicable: [X] Yes CPG GOAL OUTCOME EVALUATION: * Plan of Care - Blanca Malcolm RN - 02/09/2021 12:37 PM EDT Patient safety maintained. Patient currently resting in bed. OUTCOME EVALUATION NOTE: OUTCOME SUMMARY: Patient alert and oriented x4. Patient reporting 7/10 back and RLQ pain; given PRN oxycodone with positive effect per pt. Patient's RLQ- positive BS, non- tender to palpation per pt, no facial grimacing noted to palpation. Patient's LS noted to be CTA; SOB noted with exertion. Patient up to restroomwith standby assist. Please see full assessment. Patient comfort and safety to be maintained, will continue to monitor. Care per MD/[facility] orders, purposeful rounding in place. MD to be notified of anychanges. PLAN MOVING FORWARD: IV electrolyte replacement, IV lasix, pain management INDIVIDUALIZED FALL PREVENTION INTERVENTIONS: Patient-specific fall risk factors per assessment: [current deficits]: bed alarm, bed in locked, low position, nonskid socks, call cunningham within reach Assistance [level of assistance required for transfers and ambulation]: stand by for safety Supervision [direct monitoring required during toileting and ADLs]: assistance Surveillance [continuous indirect monitoring]: Masimo Patient-specific fall prevention interventions for sensory deficits provided, if applicable: [X] Yes CPG GOAL OUTCOME EVALUATION: * Plan of Care - Ghazala Shaffer RN - 02/09/2021 3:01 AM EDT OUTCOME EVALUATION NOTE: OUTCOME SUMMARY: A+OX4. VSS on RA. Assessment as documented. Pt reports back,abdomen, and L foot pain, PRN oxycodonegiven and PRN tylenol given, some effect. Pt reports no SOB and no numbness or tingling. Scheduled IV lasix given (see MAR). Safety maintained, WCTM. PLAN MOVING FORWARD: Diuresis. Cardiac workup. Safety. Monitor VS. Monitor BG. INDIVIDUALIZED FALL PREVENTION INTERVENTIONS: Patient-specific fall risk factors per assessment: [current deficits]: IV. Assistance [level of assistance required for transfers and ambulation]: IND Supervision [direct monitoring required during toileting and ADLs]: IND Surveillance [continuous indirect monitoring]: Masimo. Tele. Room near nursing station. Call cunningham within reach. Patient-specific fall prevention interventions for sensory deficits provided, if applicable: [X] N/A CPG GOAL OUTCOME EVALUATION: * Plan of Care - Laura Desai RN - 02/08/2021 1:55 AM EDT OUTCOME EVALUATION NOTE: OUTCOME SUMMARY: Pt remains free from falls/injuries this shift, bed in low position. Pt w/ no c/o pain at this time. PRN tums administered per pt request. Ambulating up to BR independently. Call cunningham maintained within reach at all times, pt encouraged to use in order to make needs known. Will continue to monitor. 0430- Pt c/o dull, aching back/chest pain rated 9/10. Denies radiation of pain. Bp & HR WNL (see docflowsheet). Pt denies feeling SOB. Called tele & tele reports no change of pt's heart rate or rhythm within the past ~1 hour. Team notified & troponin, CXR & STAT EKG ordered & obtained. Will continue to monitor. PLAN MOVING FORWARD: Continue to monitor, diuresis INDIVIDUALIZED FALL PREVENTION INTERVENTIONS: Patient-specific fall risk factors per assessment: [current deficits]: IV sites, masimo Assistance [level of assistance required for transfers and ambulation]: Indep Supervision [direct monitoring required during toileting and ADLs]: Eyes on Surveillance [continuous indirect monitoring]: Room near unit station, purposeful rounding, bedsidereport Patient-specific fall prevention interventions for sensory deficits provided, if applicable: NA CPG GOAL OUTCOME EVALUATION: * Plan of Care - Deidra Black - 02/07/2021 6:24 PM EDT OUTCOME EVALUATION NOTE: OUTCOME SUMMARY: Pt A&O x4, VSS on RA Pt c/o 03/20 pain, scheduled gabapentin administered to good effect IV lasix x2, IV Mag and PO K administered Pt to laboratory development technician for exploratory procedure this afternoon When arrived back to floor dressing initially looks CDI, but after the patient went to the restroom, R radial artery insertion site was actively bleeding. Additional gauze and Tegaderm applied to good effect. Safety maintained and no further events PLAN MOVING FORWARD: Diuresis, Monitor radial cath insertion site, Monitor electrolytes INDIVIDUALIZED FALL PREVENTION INTERVENTIONS: Patient-specific fall risk factors per assessment: [current deficits]: Generalized weakness, LDAs Assistance [level of assistance required for transfers and ambulation]: IND Supervision [direct monitoring required during toileting and ADLs]: IND Surveillance [continuous indirect monitoring]: Environmental Surveillance, purposeful rounding, call cunningham within reach * Plan of Care - Brittny Lakhani MD - 02/07/2021 5:32 PM EDT Cardiology Brief Plan of Care Note Toyin Lion underwent coronary angio today. She has 3 vessel coronary disease and should have a cardiothoracic eval for potential CABG. She is stable, without ACS, and so revascularization either with CABG or PCI does not necessarily need to happen this admission. Would continue with diuresis as you are. We will call CTS tomorrow morning to begin the discussion about revascularization options. Brittny Lakhani, PGY5 Cardiovascular Disease Fellow * Brief Op Note - Antonio Cruz MD - 02/07/2021 2:39 PM EDT Images from the original note were not included. [facility] [place] [place] [id number] CORONARY ANGIOGRAM AND PERCUTANEOUS CORONARY INTERVENTION REPORT Patient: Toyin Lion : 1955 MR number: [id number] Date of Service: 02/07/2021 Inspectors And Regulatory Officers: Antonio Curz MD Fellow: Juanis Hooekr MD and Kaitlin Mabry MD INDICATION: Toyin Lion??is a 65 y.o.??female??with a medical history of [...] and she has denied chest pain throughout admission. TTE here reveals reduced EF with WMAs concerning for ischemia in the LAD distribution vs stress cardiomyopathy given apical kinesis demonstrated on Echo. She is undergoing a left heart cath to evaluate her new onset LV dysfunction and low level NSTEMI. PROCEDURES PERFORMED: ??? Left heart cath, coronary angiogram. PROCEDURE: ??? The risks, benefits and alternatives of the procedures and moderate sedation were explained to the patient and informed consent was obtained. The patient was brought to the laboratory development technician and placed onthe table. Time out was performed. The planned puncture sites were prepped and draped in the usual sterile fashion. The patient was sedated for the procedure. Cardiac catheterization performed. ??? Rt Radial artery access. The puncture site was infiltrated with 2 % lidocaine. The vessel was accessed using the modified Seldinger technique, a wire was threaded into the vessel, and a 6 Fr glide sheath slender was advanced over the wire into the vessel. Vasodilators and heparin were given after access obtained. ??? Left coronary artery angiography. A 5 Fr Donte catheter was advanced to the aorta and positioned in the vessel ostia under fluoroscopic guidance. Angiography was performed in multiple projections. Intracoronary nitroglycerin was given in order to achieve maximal vasodilatation. ??? Right coronary artery angiography. A 5 Fr Donte catheter was advanced to the aorta and positioned in the vessel ostia under fluoroscopic guidance. Angiography was performed in multiple projections. Intracoronary nitroglycerin was given in order to achieve maximal vasodilatation. ??? An IFR measurement of the lesion in the mid OM. Steady baseline values were obtained. Mean arterial pressure and mean distal coronary pressures were obtained. The IFR was calculated to be 0.74. Based on the results of this study, the lesion was judged to be significant. ??? Weight-based heparin was given for procedural anticoagulation to maintain an ACT of 250 secondsby Hemochron throughout the case. ??? Contrast given. 75 ml Optiray 350. ??? At the end of the case, a Trans Radial Band was applied to the right wrist and the arterial sheath was removed with hemostasis obtained. The patient was transported to the post-procedure holding area in stable condition. ??? There were no procedural complications. ??? I provided direct [id number] monitoring of conscious sedation which was administered by an independent trained nurse. RESULTS: Hemodynamics: Hemodynamic assessment demonstrates moderately elevated LVEDP of 20 mmHg. RESULTS: Coronary circulation: The coronary circulation is right dominant. There was severe 2 vessel CAD of the LAD and RCA and moderate but hemodynamically significant LCX disease. ?? Left main: Angiography showed mild diffuse disease. ?? LAD: Angiography showed 95% calcified lesions in an angulated bend. The distal LAD is mildly diffusely diseased. The Diag1 has mild diffuse disease. ?? Circumflex: Angiography showed a 60-70% moderate lesion in the proximal to mid segment. The OM1 has mild diffuse disease. ?? RCA: Angiography showed a 30% mid lesion. The distal RCA has a 70% lesion. The ostial RPD has a 90% lesion. The ostial ELIER continuation has a moderate 50% lesion. SUMMARY AND THERAPEUTIC RECOMMENDATIONS: ??? Toyin Lion is recovering from a major surgery. Her lesions appear severe but chronic. She has diabetes and LV dysfunction and 3 vessel disease. We will stop today to discuss Plavix candidacyor surgical candidacy with Dr. Gilmore's team. ??? In the meantime, she will need continued diuresis for her LVEDP of 20-22 mmHg. ??? I was present during the entire procedure and personally dictated or confirmed the above report. Antonio Cruz MD MS NIC 02/07/2021 2:40 PM * Plan of Care - Brittny Lakhani MD - 02/07/2021 10:47 AM EDT Images from the original note were not included. Cardiac cath Pre Procedure Note The indications, expected benefits and potential risks of heart catheterization were reviewed in detail with the patient. The potential for , heart attack, stroke, kidney failure, hemorrhage, allergic reaction, vascular complications and infection were reviewed in detail. The possibility of stenting and other percutaneous intervention with associated risk was reviewed. The possible need for emergent coronary artery bypass surgery was reviewed. After a discussion about the above, and havinganswered all questions posed, the patient was provided with a consent which was reviewed and signed. ASA: 3: Patient with severe systemic disease Mallampati: I: soft palate, fauces, tonsillar pillars and uvula can be seen Sedation Plan: moderate (conscious sedation) Assessment and Plan: Toyin Lion is a 65 y.o. female with HTN, HLD, diabetes, CKD, SIMMONS cirrhosis and a recent admission for pancreatitis and pseudocyst who presented with decompensated heart failure, currently being diuresed. Echo shows newly reduced LVEF with focal wall motion abnormalities. H er reduced LVEF with apical wall motion abnormalities can be consistent with LAD ischemic/ infarct vs takotsubo cardiomyopathy. She does not have any chest pain and trop is very low-level elevated but flat, arguing against active ACS. In order to rule out LAD disease, we should do a cardiac cath. -ASA loaded today. -No P2Y12 load- give on table if needed. -No contraindications to fci DAPT. -Plan for access via R radial. -Patient being diuresed now but can lay flat. Brittny Lakhani MD 02/07/2021 Pager [phone] * Plan of Care - Brittny Hallman RN - 02/07/2021 3:51 AM EDT OUTCOME EVALUATION NOTE: OUTCOME SUMMARY: Pt transferred to floor about 10pm. A&O x4, VSS, RA, complained of 8/10 abd pain at 6am, PRN Oxy administered with good effect, assessment as documented. Pt up to toilet overnight w/ a walker. NPO at midnight. No acute events overnight, able to make needs known, safety maintained, will continueto monitor. PLAN MOVING FORWARD: Diuresis (-2L everyday) INDIVIDUALIZED FALL PREVENTION INTERVENTIONS: Patient-specific fall risk factors per assessment: [current deficits]: Med fall risk Assistance [level of assistance required for transfers and ambulation]: SBA w/ FWW Supervision [direct monitoring required during toileting and ADLs]: independent Surveillance [continuous indirect monitoring]: Purposeful hourly rounding, room near nurses station, call cunningham within reach, rings appropriately Patient-specific fall prevention interventions for sensory deficits provided, if applicable: [X] Yes CPG GOAL OUTCOME EVALUATION: * Plan of Care - Ernie Solano RN - 02/06/2021 6:17 PM EDT OUTCOME EVALUATION NOTE: OUTCOME SUMMARY: Patient AOx4, complained of abdominal pain often, mobilizing wit a walker to the bathroom many times due to lasix, low grade fever in the morning, afebrile, UOP adequate, NSR/ST, PLAN MOVING FORWARD: Waiting for a bed, manage pain INDIVIDUALIZED FALL PREVENTION INTERVENTIONS: Patient-specific fall risk factors per assessment: [current deficits]: gen weakness Assistance [level of assistance required for transfers and ambulation]: standby Supervision [direct monitoring required during toileting and ADLs]: devices Surveillance [continuous indirect monitoring]: lawson monitor Patient-specific fall prevention interventions for sensory deficits provided, if applicable: [X] No CPG GOAL OUTCOME EVALUATION: * Consult Note - Kingsley Gilmore MD - 02/06/2021 12:40 PM EDT Images from the original note were not included. [facility] Department of Cardiology Initial Consult Note CARDIOLOGY CONSULT NOTE Patient: Toyni Lion Primary Care: Asia Gil DO : 1955 Referring Provider: Johnny Marie Date of service: 02/06/2021 Reason for consult: HFrEF with WMA HISTORY OF PRESENT ILLNESS Toyin Lion is a 65 y.o. female with HTN, HLD, diabetes, CKD, SIMMONS cirrhosis and a recent admission for pancreatitis who presented with progressive dyspnea and a 40lb weight gain. We have been called given that an echo was done and LVEF is 40% with regional wall motion abnormalities. An echo was done during an admission months ago, and this echo report has already been requested and reportedly WMA are new. Toyin was initially admitted 01/17-01/27 with post-ERCP pancreatitis with retained stone in the cysticduct. She was re-admitted from 01/28-02/03 with ongoing abdominal pain found to have a large loculated thick walled collection surrounding her pancreas treated with supportive care discharged with planfor surgery as an outpatient. After talking with Toyin, she reports dyspnea and LE edema that has been present since the beginning of January since she was admitted for pancreatitis and received large amounts of IVF. She states that Wednesday she was getting up to walk to the bathroom, and she felt quite dyspneic after walking. Shehad not walked around much more before this. She denies chest pain then or ever at home. She did describe an episode of chest pain 5 years ago that she said had a work- up, but she is unsure of the details. MEDICAL AND SURGICAL HISTORY Past Medical History: Diagnosis Date ??? CKD [...] ERCP performed by Eliel Leigh MD at [facility] ENDOSCOPY MEDICATIONS AND ALLERGIES Scheduled Meds: ??? metoprolol tartrate 12.5 mg Oral 2 times per day ??? aspirin 81 mg Oral Daily ??? insulin lispro 1-5 Units Subcutaneous TID AC ??? senna-docusate 2 tablet Oral BID ??? polyethylene glycoL (MIRALAX) oral powder 17 g Oral Daily ??? furosemide 40 mg Intravenous BID ??? DULoxetine DR 60 mg Oral Daily ??? atorvastatin 40 mg Oral QPM ??? gabapentin 100 mg Oral Daily at Noon ??? gabapentin 200 mg Oral BID ??? pantoprazole EC 40 mg Oral Daily ??? sodium chloride 0.9 % (flush) 5 mL Intravenous BID ??? heparin (porcine) 5,000 Units Subcutaneous Q8H BASIL Continuous Infusions: PRN Meds:.glucose 40% oral geL OR dextrose 10% OR glucagon, magnesium citrate, sodium chloride 0.9 % (flush), lidocaine, acetaminophen, trimethobenzamide, oxyCODONE Allergies: Allergies Allergen Reactions ??? Benzodiazepines Other (See Comments) Paradoxical reaction to benzodiazepines ??? House Dust ??? Hydrocodone-Acetaminophen Itching ??? Metoclopramide ??? Mold Extracts ??? Pollen Extracts ??? Propoxyphene Hcl Nausea And Vomiting ??? Unknown [Unclassified Drug] Most environmental allergies: grass, workman, trees,pollen SOCIAL HISTORY Social History Tobacco Use ??? Smoking status: Never Smoker ??? Smokeless tobacco: Never Used ??? Tobacco comment: [facility] Substance Use Topics ??? Alcohol use: Not Currently ??? Drug use: Yes Frequency: 7.0 times per week Types: Marijuana Comment: nightly-has card FAMILY HISTORY No family history on file. REVIEW OF SYSTEMS Negative except as noted above. EXAM/ DATA Last value Range last 24 hrs Temperature Temp: (!) 38 ??C (100.4 ??F) Temp: [36.6 ??C (97.9 ??F)-38 ??C (100.4 ??F)] Heart Rate Heart Rate: (!) 112 Heart Rate: [92-112] Blood Pressure BP: 156/68 BP: (112-156)/(50-98) Respiratory Rate Resp: 21 Resp: [14-22] SpO2 SpO2: 97 % SpO2: [93 %-98 %] General: NAD, conversational HEENT: Anicteric sclera Cardiac: RRR, no murmurs, rubs, or gallops, elevated JVP Lungs: CTA bilaterally, no wheezes, rales, or rhonchi; on room air Abdomen: Soft, nontender, nondistended Extremities: 2+ bilateral radial pulses, 3+ bilateral LE edema Skin: No visible rash Neuro: Follows commands appropriately, moving all extremities spontaneously Intake/Output Summary (Last 24 hours) at 02/06/2021 1240 Last data filed at 02/06/2021 0800 Gross per 24 hour Intake 1050 ml Output 3200 ml Net -2150 ml Wt Readings from Last 3 Encounters: 02/04/21 (S) 93.8 kg (206 lb 12.7 oz) 01/29/21 91.9 kg (202 lb 8 oz) 01/17/21 76.7 kg (169 lb) Labs: Recent Labs 02/06/21 0155 02/05/21 0610 02/04/212199 WBC 14.4* 19.3* 17.8* HGB 9.2* 10.3* 9.9* HCT 27.2* 30.6* 30.6* PLATELET 232 279 246 NEUTROABS 11.64* 16.92* 15.73* Recent Labs 02/06/21 0155 02/05/21 1510 02/05/21 0610 NA 134* 133* 135 K 3.7 3.6 4.0 CL 96* 94* 99 CO2 27 26 25 BUN 24* 23* 23* CREATININE 1.27* 1.28* 1.21* Recent Labs 02/06/21 0155 02/05/21 1510 02/05/21 0610 CALCIUM 8.0* 8.4* 8.5 MAGNESIUM 0.68* 0.61* -- Recent Labs 02/04/21 2200 02/03/21 0245 02/02/21 0226 AST 34* 52* 52* ALT 26 34* 33* ALKPHOS 222* 235* 223* BILITOT 0.6 0.6 0.6 Recent Labs 02/04/21 220 INR 1.2 PT 13.6* PTT 29 Imaging Studies: Reviewed. Prior Cardiac Studies: TTE 02/05/21: SUMMARY: ?? 1. The left ventricular chamber [...] study in our system available for comparison. Nuclear stress test 05/18/2014 ASSESSMENT AND PLAN Toyin Lion is a 65 y.o. female with HTN, HLD, diabetes, CKD, SIMMONS cirrhosis and a recent admission for pancreatitis and pseudocyst who presented with dyspnea and a 40lb weight gain. ProBNP is elevated >35,000 and echo shows newly reduced LVEF with focal wall motion abnormalities. She is currently being diuresed with adequate response. Her reduced LVEF with apical wall motion abnormalitiescan be consistent with LAD ischemic/ infarct vs takotsubo cardiomyopathy. She does not have any chest pain and trop is very low-level elevated but flat, arguing against active ACS. In order to rule out LAD disease, we should do a cardiac cath. We should also work to get her on GDMT, but this can beinitiated after cath. Recommendations: -Cardiac cath. I am working to get her on the schedule for Wednesday. Please make her NPO after MN. -Recommend treating for presumed CAD with ASA 81mg, atorvastatin 80mg daily. -Check lipid panel. -Start low dose metoprolol 12.5mg BID- starting with low dose to ensure she tolerates well her in her current decompensated state. -Continue to diurese as you are with a goal of at least -2L daily. Monitor lytes BID. -Will discuss initiation of ACEi after cath. Hold off for now given contrast load and CKD. Discussed with Dr. Gilmore. Brittny Lakhani, PGY5 Cardiovascular Disease Fellow Personal Pager #[phone] CARDIOLOGY STAFF NOTE I have personally interviewed and examined the patient and reviewed appropriate data, including labs, ECGs and other diagnostic studies. I agree with the principal findings documented above. The assessment and plan were formulated in discussion with me. Pertinent History: Dyspnea improving with diuresis. Pertinent Exam: JVP elevated; lungs clear; RRR; ++ edema. Major issues addressed: # Acute systolic heart failure # NSTEMI; possible stress cardiomyopathy (versus) # Coronary calcification on CT; strong family history of CAD # Recent complex GI course, as above Plan: -Considering stress cardiomyopathy versus LAD-territory event as explanation for apparently acute drop in LV EF and acute heart failure; discussed with her; plan for definitive coronary assessment, possibly tomorrow -In the meantime, she is clinically stable without angina; continue diuresis, with attention to K+;ultimately will benefit from BB (re-initiation) and ANNETTE-I (initiation) -Continue ASA and statin; several days into her presentation now, so no clear indication for heparin at this time Kingsley Gilmore MD, [facility], [facility] Staff Die Repairer Trimmer Dies member service representative and Medical Education pager [phone] * Plan of Care - Naya Sarmiento RN - 02/06/2021 5:34 AM EDT OUTCOME EVALUATION NOTE: OUTCOME SUMMARY: No acute events overnnight. Given PRN oxy x1 for pain in bilateral feet, patient states related to edema and tightness PLAN MOVING FORWARD: Transfer Rajan robertsey INDIVIDUALIZED FALL PREVENTION INTERVENTIONS: Patient-specific fall risk factors per assessment: [current deficits]: Lines, tubes, drains Assistance [level of assistance required for transfers and ambulation]: SBA Supervision [direct monitoring required during toileting and ADLs]: SBA Surveillance [continuous indirect monitoring]: Tele, pulse ox, apnea, rounding Patient-specific fall prevention interventions for sensory deficits provided, if applicable: [X] Yes CPG GOAL OUTCOME EVALUATION: * Initial Assessments - Yamileth Townsend MSW - 02/05/2021 1:07 PM EDT Office of Care Management Initial Assessment FRANCE Ramos reviewed record and discussed patient with Care Team. Source of Information: Patient and medical record Introduced self/reviewed role; services accepted. Reason for Hospitalization: Pancreatitis post ERCP (December 2020) per H&P admit note by Dr. Abarca (02/05 @ 0100). Past Medical History: Diagnosis Date ??? CKD (chronic kidney disease) 04/05/2020 ??? Delirium 04/05/2020 ??? Diabetes mellitus type 2, uncomplicated 05/14/2014 ??? Hx-TIA (transient ischemic attack) 05/14/2014 ??? Hyperlipidemia 05/28/2014 Off statin due to foot pain side effect ??? Hypertension 05/28/2014 ??? Restless legs syndrome (RLS) 04/05/2020 Hospitalizations (Admits) Within the Past 30 Days: This is the third inpatient hospital admission in 30 days. Last COVID test: 02/05/2021 00:54 Not detected Anticipated Length Of Stay (If known): no expected discharge date at time of assessment Current Decision-Making Capacity: Alert, oriented, full capacity. Advance Care Planning: Attempt Cardiopulmonary Resuscitation - Inpatient <no information> If AD's have not been completed patient's daughters Linda and Sadie would be surrogate decision makerper [place] surrogate decision making law. (Only good for 90 days) Any patient receiving care at [facility] must abide by [place] law. The hierarchy for surrogate decision making [...] (i) The agent with financial power of sports attorney or a conservator appointed in accordance with RSA 464-A. (j) The guardian of the patient???s estate. Current Coping/Education/Information Needs: Pt reports understanding current plan of care and treatment recommendations. Current Functional Ability: Independent, SBA as needed. Functional Status Prior to Admission: Independent Home Environment: Lives independently in small home with 4 steps to enter, her bath/bed on first floor. [address] [facility] [id number] Social & Family Supports/Community Resources: Extended Emergency Contact Information Primary Emergency Contact: Linda Bacon [place] [address] [facility] Mobile Relation: Child Secondary Emergency Contact: Silvana Lion, [place] [id number] [facility] Relation: Child Behavioral Health History: none noted Substance Use/Abuse: Tobacco hx: none noted ETOH hx: none noted Illicit drug use hx: medical marijuana daily Other Pertinent/Service Specific Information: n/a Health/Prescription Coverage: Primary Insurance: [employer] [place] Payor: [employer] [facility] [place] / Plan: [place] / Product Type: *No Product type* / Secondary Insurance: [facility] MANAGED MEDICARE Prescription Coverage: Yes Preferred Pharmacy: [facility] [address] [place] [id number] Other: n/a Primary Care Provider: Asia Gil DO [phone] Patient/Caregiver Goals of Treatment: to get home Potential Needs for Transition of Care: Rehab/SNF: n/a Home Health: [facility] DME: cane, walker, shower chair, grab bars Dialysis: n/a Community Resources: n/a Transportation: n/a Other: n/a Anticipated Barriers to Discharge/Special Considerations: none anticipated Assessment: Ms. Lion is a 65 y/o mother of two who is admitted to [facility] as a transfer from [facility] for higher level of care d/t pancreatitis post ERCP. Patient has had multiple admissions to hospital in January (this is third admission). Patient expects to return home, independent when medically cleared. Her son in law will provide transportation. Plan: Following for EXTRUDING MACHINE OPERATOR and care management support through disposition. A member of the Care Management team will continue to monitor progress, follow for continuity of care and assist with transition of care planning. EXTRUDING MACHINE OPERATOR will continue to follow as needs are identified. FRANCE Ramos Pager: [phone] Desk: [phone] * Plan of Care - Dionicio Roberts RN - 02/05/2021 9:43 AM EDTSummary: Nursing Care Plan OUTCOME EVALUATION NOTE: OUTCOME SUMMARY: Admit for fluid overload. Patient negative fluid balance. Currently on RA. Denies SOB. PLAN MOVING FORWARD: Continue diuresis as ordered. Followed by GI for abscess. No drain at this time. IC38/IC38-A Toyin Lion [id number] 65 y.o. female Admitted: 02/04/2021 HD: 1 WT:(S) 93.8 kg (206lb 12.7 oz) (02/04/212114) @IPASSISOLATION@ Allergies: Benzodiazepines, House dust, Hydrocodone- acetaminophen, Metoclopramide,Mold extracts, Pollen extracts, Propoxyphene hcl, and Unknown [unclassified drug] Code Status: FULL. Illness Severity [x] Stable [] Watcher [] Unstable Patient Summary Reason for admission: Toyin was initially admitted 01/17-01/27 with post-ERCP pancreatitis with retained stone in the cystic duct. She was re-admitted from 01/28-02/03 with ongoing abdominal pain found tohave a large loculated thick walled collection surrounding her pancreas treated with supportive care discharged with plan for surgery as an outpatient. At home had increased SOB and lower extremity edema since her admission in early January and has had an approximately 40lb weight gain since that time. Relevant PMH: SIMMONS cirrhosis (biopsy confirmed 2007), prior lap-ronnie, HTN, HLD, DMII c/b diabetic neuropathy, GERD, prior TIA, & CKD III/A2-3. Significant 24 hour events: Reportedly received 1 unit PRBC at OSH prior to arrival for hgb of 7. Admitted to [facility] at 02/04. BCX2, UA/UC, COVID swab sent. EKG done. 40 mg IV lasix given X1. Downgraded. On RA. Repleted K+ and Mg this shift. Neuro: A/OX4. PERRLA. 02/12. CV: NSR 80-90s. 1st degree AV block on EKG. Qtc 510 now <500. Trop 0.19 at OSH. Recheck Trop 0.03 Resp: RA. Improved SOB since arrival. Was on lasix gtt as OSH. Said she gained 40 lbs of water. GI: Bruise LUQ. C/O tender RUQ. BM 02/03. Carb control diet. Thin liquids. Takes pills whole. Seen by GI this AM- no further action. Watch and wait. :Vikash. Was on lasic gtt at OSH. Lasix BID Heme/ID: SubQ heparin Skin: Bruise LUQ abd. Intact. Social: Two daughters- one in [place] and one in [place]. Only has some of her advanced directive complete. Would like to speak w/ care mgmt to finish. Consult placed. Action List Serial Labs: AM labs. QID finger sticks. Situational Awareness & Contingency Planning Synthesis Transfer to [facility] when bed available. Access: Peripheral IV Line - Single Lumen 02/04/212126 median cubital vein (antecubital fossa), left 18 gauge (Active) Peripheral IV Line - Single Lumen 02/04/212239 median cubital vein (antecubital fossa), right 22 gauge (Active) Active continuous infusions: Last CHG Bath: 02/04/212114 Lab Results Component Value Date/Time CALCIUM 8.4 (L) 02/05/2021 03:10 PM PT 13.6 (H) 02/04/2021 10:00 PM INR 1.2 02/04/2021 10:00 PM PTT 29 02/04/2021 10:00 PM Lab Results Component Value Date/Time WBC 19.3 (H) 02/05/2021 06:10 AM RBC 3.40 (L) 02/05/2021 06:10 AM HGB 10.3 (L) 02/05/2021 06:10 AM HCT 30.6 (L) 02/05/2021 06:10 AM PLATELET 279 02/05/2021 06:10 AM Lab Results Component Value Date/Time NA 133 (L) 02/05/2021 03:10 PM K 3.6 02/05/2021 03:10 PM CL 94 (L) 02/05/2021 03:10 PM CO2 26 02/05/2021 03:10 PM BUN 23 (H) 02/05/2021 03:10 PM CREATININE 1.28 (H) 02/05/2021 03:10 PM INDIVIDUALIZED FALL PREVENTION INTERVENTIONS: Patient-specific fall risk factors per assessment: [current deficits]: ICU monitor cords. Assistance [level of assistance required for transfers and ambulation]: Baseline walker and cane use. Supervision [direct monitoring required during toileting and ADLs]: Assist x1 while ambulating Surveillance [continuous indirect monitoring]: Hemodynamic Monitoring Patient-specific fall prevention interventions for sensory deficits provided, if applicable: [X] No CPG GOAL OUTCOME EVALUATION: Problem: Skin Injury Risk Increased Goal: Skin Health and Integrity Outcome: Ongoing (Interventions Implemented as Appropriate) Intervention: Optimize Skin Protection Flowsheets (Taken 02/05/2021943) Head of Bed (HOB) Positioning: HOB at 30-45 degrees Pressure Reduction Techniques: ??? frequent weight shift encouraged ??? heels elevated off bed ??? pressure points protected ??? weight shift assistance provided Skin Protection: silicone foam dressing in place Intervention: Promote and Optimize Oral Intake Flowsheets (Taken 02/05/2021943) Oral Nutrition Promotion: rest periods promoted Problem: Fluid Volume Excess Goal: Fluid Balance Outcome: Ongoing (Interventions Implemented as Appropriate) Intervention: Monitor and Manage Hypervolemia Flowsheets (Taken 02/05/2021943) Fluid/Electrolyte Management: other (see comments) Note: Diuresed * Consult Note - Julio Cesar Nj MD - 02/05/2021 8:00 AM EDT Images from the original note were not included. DIVISION OF GASTROENTEROLOGY & HEPATOLOGY INITIAL CONSULT REQUESTING PROVIDER: Travis Callahan MD NAME: Toyin Lion : 1955 HPI: 65/F hx SIMMONS cirrhosis (bx-confirmed 08/2008), hx lap ronnie, HTN, HLD, DM2, GERD, hx TIA, CKD who underwent recent ERCP and cholangioscopy and EHL (01/17/21) for removal / obliteration of retained stone in a cystic duct remnant v GB infundibulum in setting of chronic RUQ pain which was unsuccessful. She was referred for completion cholecystectomy given unsuccessful endoscopic approach. She was admitted post-procedure w/ pancreatitis for which she received IVF resuscitation. Patient elected to be discharged on 01/27. She returned to [facility] on 01/29 volume overloaded (15 lbs over dry weight) with persistent abdominal pain and distension. She was transferred back to [facility]. She had a worsening leukocyt osis (WBC 20) for which she underwent non-contrast CT (01/29) noting a 5.5 x 5.5 x 4.1cm peripancreatic fluid collection. This was followed by a HIDA scan (01/29) without evidence of leak and MRCP (01/29) with similar findings to the CT, although no necrosis seen. She was seen by surgery, any plans for completion surgery deferred until patient's pancreatitis and fluid collections improved / resolved. She was then discharged on 02/03. She re-represented to [facility] yesterday (02/04) w/ fluid overload, DAVIS. Her abdominal pain has been well-controlled. No symptoms of gastric outlet obstruction. She underwent a repeat CT notable for persistent peripancreatic fluid collection, now 11cm in largest dimension. CXR was notable for pulmonary edema. She also had a markedly elevated BNP, mild troponemia, lateral ST depressions. TTE w/ depressed EF (35-40%). She was diuresed, started on BiPAP, started on empiric cefepime / Zosyn and transferred to [facility] for further care. Here, patient has remained afebrile,HR 90s, BP 130/70s. O2 req quickly weaned to 1L NC and admitted to RNF. Labs notable for WBC 18, INR 1.2, Cr 1.3, BUN 24, Na 137, albumin 2.3, TB 0.6, AP 222, AST 34, ALT 26, José 0.03, BNP >35,000. ROS: 10-system ROS negative other than that noted above PAST MEDICAL HX: Past Medical History: Diagnosis Date ??? CKD (chronic kidney disease) 04/05/2020 ??? Delirium 04/05/2020 ??? Diabetes mellitus type 2, uncomplicated 05/14/2014 ??? Hx-TIA (transient ischemic attack) 05/14/2014 ??? Hyperlipidemia 05/28/2014 Off statin due to foot pain side effect ??? Hypertension 05/28/2014 ??? Restless legs syndrome (RLS) 04/05/2020 PAST SURGICAL HX: Past Surgical History: Procedure Laterality Date ??? PRO ERCP,DIAGNOSTIC N/A 01/17/2021 ERCP performed by Eliel Leigh MD at [facility] PAST SOCIAL HX: Social History Socioeconomic History ??? Marital [...] Gatherings with Friends and Family: ??? Attends Pentecostalism Services: ??? Active Member of Clubs or Organizations: ??? Attends Club or Organization Meetings: ??? Marital Status: Intimate Partner Violence: ??? Fear of Current or Ex-Partner: ??? Emotionally Abused: ??? Physically Abused: ??? Sexually Abused: PAST FAMILY HX: No family history on file. MEDICATIONS Home Meds: Medications Prior to Admission Medication Sig Dispense Refill Last Dose ??? oxyCODONE (Roxicodone) 5 mg Tablet Take 1 tablet by mouth every 8 hours as needed for Pain. 15 tablet 0 Unknown at Unknown time ??? polyethylene glycoL (Miralax) 17 gram Powder in Packet Take 17 g by mouth daily. 14 each 0 Unknown at Unknown time ??? acetaminophen (Tylenol) 325 mg Tablet Take 2 tablets by mouth every 4 hours as needed for Pain.30 tablet 1 Unknown at Unknown time ??? calcium carbonate (Tums) 200 mg calcium (500 mg) Tablet, Chewable Take 1-2 tablets by mouth every 4 hours as needed for Heartburn. Unknown at Unknown time ??? gabapentin (Neurontin) 100 mg Capsule Take 1 capsule by mouth Daily at Noon. 90 capsule 12 Unknown at Unknown time ??? gabapentin (Neurontin) 100 mg Capsule Take 2 capsules by mouth 2 times daily. 90 capsule 12 Unknown at Unknown time ??? gabapentin (Neurontin) 100 mg Capsule Take 2 capsules by mouth nightly as needed (sciatic leg pain). 90 capsule 12 Unknown at Unknown time ??? atorvastatin (Lipitor) 40 mg Tablet Take 1 tablet by mouth every evening. 90 tablet 3 Unknown at Unknown time ??? metoprolol succinate XL (Toprol-XL) 50 mg Tablet Sustained Release 24 hr Take 1 tablet by mouthdaily. 30 tablet 12 Unknown at Unknown time ??? DULoxetine DR (Cymbalta) 30 mg Capsule, Delayed Release(E.C.) Take 1 capsule by mouth daily. 30tablet 11 Unknown at Unknown time ??? pantoprazole EC (Protonix) 40 mg Tablet, Delayed Release (E.C.) Take 1 tablet by mouth daily. 90 tablet 3 Unknown at Unknown time ??? multivitamin (THERAGRAN) Tablet Take 1 tablet by mouth daily. Unknown at Unknown time ??? mirtazapine (REMERON) 7.5 mg Tablet Take 7.5 mg by mouth nightly. Unknown at Unknown time Current Meds: Scheduled: ??? insulin lispro 1-5 Units Subcutaneous TID AC ??? senna-docusate 2 tablet Oral BID ??? polyethylene glycoL (MIRALAX) oral powder 17 g Oral Daily ??? atorvastatin 40 mg Oral QPM ??? DULoxetine DR 30 mg Oral Daily ??? gabapentin 100 mg Oral Daily at Noon ??? gabapentin 200 mg Oral BID ??? pantoprazole EC 40 mg Oral Daily ??? sodium chloride 0.9 % (flush) 5 mL Intravenous BID ??? heparin (porcine) 5,000 Units Subcutaneous Q8H BASIL PRN: glucose 40% oral geL OR dextrose 10% OR glucagon, magnesium citrate, sodium chloride 0.9 % (flush), lidocaine, acetaminophen, trimethobenzamide, oxyCODONE Allergies Allergen Reactions ??? Benzodiazepines Other (See Comments) Paradoxical reaction to benzodiazepines ??? House Dust ??? Hydrocodone-Acetaminophen Itching ??? Metoclopramide ??? Mold Extracts ??? Pollen Extracts ??? Propoxyphene Hcl Nausea And Vomiting ??? Unknown [Unclassified Drug] Most environmental allergies: grass, workman, trees,pollen OBJECTIVE Vitals: T Temp: [36.7 ??C (98.1 ??F)-37 ??C (98.6 ??F)] HR Heart Rate: [86-105] BP BP: (111-160)/(49-83) RR Resp: [10-19] SpO2 SpO2: [95 %-100 %] 02/04 0701 - 02/05 0700 In: 650 [P.O.:550; I.V.:100] Out: 2850 [Urine:2850] Wt Last (S) 93.8 kg (206 lb 12.7 oz) Admit 93.8 kg Physical Exam: GENERAL:??NAD, appears comfortable, on RA HEENT: AT/NC, sclerae anicteric CHEST: Diminished at bases CARDIAC: RRR, normal S1/S2, no appreciable murmurs ABDOMEN:??Soft, mildly distended, non-tender. No guarding or rebound. NBS.?? EXT: Warm, no edema NEURO: Grossly intact, moves all extremities SKIN: No jaundice Labs: CBC: Recent Labs 02/05/21 0610 02/04/21219902/03/21 02402/02/2122502/01/21 0615 01/31/21 0620 01/30/21 0801/29/21 1245 WBC 19.3* 17.8* 15.3* 14.4* 18.7* 18.1* 20.4* 18.3* HGB 10.3* 9.9* 7.9* 7.6* 7.9* 8.3* 9.0* 9.1* HCT 30.6* 30.6* 25.2* 23.5* 23.9* 24.9* 26.8* 26.7* PLATELET 279 246 207 185 207 165 173 152 MCV 90.0 92.7 98.8* 95.5* 94.5* 93.3 91.8 92.4 RDWCV 14.6* 14.4* 13.0 13.2 13.1 13.1 13.0 12.9 COAG: Recent Labs 02/04/212199 PTT 29 INR 1.2 CHEM: Recent Labs 02/04/21219902/03/2124402/02/2122502/01/21 0615 01/31/21 0620 01/30/21 0822 01/29/21 1245 NA 137 132* 134* 133* 132* 132* 132* K 4.2 4.6 4.6 4.4 4.7 4.6 4.8 CL 101 100 102 101 101 101 100 CO2 26 25 24 23 20* 23 23 BUN 24* 26* 30* 32* 41* 40* 39* CREATININE 1.29* 1.24* 1.18 1.27* 1.46* 1.82* 1.84* ALBUMIN 2.3* 2.2* 2.2* 2.2* 2.1* 2.1* 2.1* CALCIUM 8.4* 8.4* 8.1* 8.3* 8.1* 8.3* 8.5 HEPATIC: Recent Labs 02/04/21219902/03/2124402/02/2122502/01/21 0615 01/31/21 0620 01/30/21 0822 01/29/21 1245 ALKPHOS 222* 235* 223* 255* 250* 273* 263* ALT 26 34* 33* 37* 42* 49* 47* AST 34* 52* 52* 58* 63* 87* 80* BILITOT 0.6 0.6 0.6 0.8 0.8 1.0 1.2 LIPASE -- -- -- -- -- 524* -- MELD-Na score: 11 at 02/04/2021 10:00 PM MELD score: 11 at 02/04/2021 10:00 PM Calculated from: Serum Creatinine: 1.29 mg/dL at 02/04/2021 10:00 PM Serum Sodium: 137 mmol/L at 02/04/2021 10:00 PM Total Bilirubin: 0.6 mg/dL (Rounded to 1 mg/dL) at 02/04/2021 10:00 PM INR(ratio): 1.2 at 02/04/2021 10:00 PM Age: 65 years 9 months IMAGING: Reports and images personally reviewed in eDH No orders to display 01/29/2021 HIDA Normal hepatic function with no evidence of biliary leak. 01/29/2021 MRCP 1. ??2 small intraluminal signal voids seen in the common bile duct without biliary ductal dilatation. Possible retained calculi. 2. ??Pancreas: Mild diffuse edema. No pancreatic ductal dilatation. 3. ??Large peripherally enhancing partially loculated fluid collection surrounding the pancreatic head and uncinate process, as described above; possible pseudocyst, however, cannot exclude an abscess. 01/29/21 CT A/P * ??Increased peripancreatic and periduodenal tracking into the Fallon's pouch and the pelvis in the setting of known pancreatitis. Evaluation of the pancreatic parenchyma is limited due to lack ofIV contrast. * ??Interval loculation of an enlarged 5.5 x 5.5 x 4.1 cm thick-walled collection anterior to the hepatic flexure (series 3 image 70). Differential considerations include pseudocyst (more likely), walled off necrosis, and abscess. * ??Unchanged gallstone in the gallbladder/cystic duct remnant. * ??Thickening of the duodenum, likely reactive. ENDOSCOPY: Reports and images personally reviewed in eD ERCP (01/17/21): Findings: ?A director of scout work film of the abdomen was obtained. Surgical ?clips, consistent with a previous cholecystectomy, ?were seen in the area of the right upper quadrant of ?the abdomen. The esophagus was successfully intubated ?under direct vision. The scope was advanced to a ?normal major papilla in the descending duodenum ?without detailed examination of the pharynx, larynx ?and associated structures, and upper GI tract. The ?upper GI tract was grossly normal. The bile duct was ?deeply cannulated with the short-nosed traction ?sphincterotome. Contrast was injected. I personally ?interpreted the bile duct images. There was brisk ?flow of contrast through the ducts. Image quality was ?excellent. Contrast extended to the hepatic ducts and ?into the gallbladder remnant. There appeared to be a ?small stone in the gallbladder. A 0.035 inch x 260 cm ?straight Dreamwire was passed into the biliary tree. ?Biliary sphincterotomy was made with a monofilament ?traction (standard) sphincterotome using ERBE ?electrocautery. There was no post-sphincterotomy ?bleeding. To discover objects, the biliary tree was ?swept with a 9 mm balloon starting within the cystic ?duct and the confluence. Nothing was found. The bile ?duct was explored endoscopically using the SpyGlass ?direct visualization system. The SpyScope was ?advanced into the cystic duct but could not initially ?pass into the gallbladder remnant. The cystic duct ?was then dilated to 4mm and then 6mm. The SpyGlass ?prober was advanced into the gallbladder remnant and ?a small stone was identified. The stone was not ?mobile and appeared to be fixed to the wall. Attempts ?were made to obliterate the stone with ?Electrohydraulic lithotripsy, but the angle would not ?permit optimal contact. Attempts were made to ?retrieve the stone with a basket and snare were ?unsuccessful Impression: ?- A single small cholecystolithiasis ?was found adherent to the wall of the ?gallbladder remanent ?- Ductoscopy was performed and ?attempts to disrupt and remove the ?stone with EHL, and Spy Basket and ?Spy snare were unsuccessful. Recommendation: ?- Discharge patient to home. ?- Clear liquid diet for 2 hours. ?- Observe patient's clinical course. ?- Return to referring physician and ? consider referral to surgery for ?completion cholecystectomy. ASSESSMENT & PLAN: Patient appears to be in ADHF, grossly volume overloaded in setting of aggressive IVF for post-ERCPpancreatitis which has complicated by a peripancreatic fluid collection. She's had a persistent leukocytosis since the time of her procedure. No imaging evidence of infection of this collection. Patient has remained afebrile, HDS. Suspect her leukocytosis is driven by SIRS response. There are no indications for drainage and timing (<4 weeks) would be premature. Ultimately awaiting interval surgery for removal of cystic duct remnant with retained stones when improved from pancreatitis perspective, agree with waiting until inflammation has settled. Recommendations: - Clear liq diet as tolerated. When able advance to 2g Na-restricted, low-fat diet. - Analgesia PRN - No role for endoscopic drainage of peripancreatic fluid collection at this time - Appreciate ongoing cardiac eval and volume mgmt by ICU and Cardiology teams - Patient would benefit from interval repeat contrast-enhanced CT as an outpatient and GI clinic follow-up (ordered) Patient seen with Dr. Nj. Thank you for involving us in the care of this patient. Please re-consult should any further questions arise. Laci Epps MD PGY-4, Gastroenterology I have seen and evaluated the patient with Dr. Epps. I have reviewed the fellow's history during the encounter and I agree with the details as written above. My physical examination confirms the above findings. The assessment and plan were formulated in discussion with me at the time of the encounter and I agree with them as documented. Julio Cesar Nj MD, MS wine and spirits clerk [employer] Helper, Gastroenterology and Hepatology documented in this encounter Plan of Treatment Upcoming Encounters Date Type Department Care Team (Latest Contact Info) Description 05/08/2024 10:30 AM EDT Hospital [place] [address] Bk Contreras MD [facility] [place] [address] 05/08/2024 10:30 AM EDT - 05/08/2024 11:00 AM [place] [address] Bk Contreras MD [facility] [place] [address] INJECTION, ANESTHETIC AGENT AND/OR STEROID, TRANSFORAMINAL EPIDURAL, LUMBAR OR SACRAL, SINGLE LEVEL (WRVU 1.9) 05/12/2024 1:00 PM EDT Office Visit Cardiology at [address] [phone] Sadi Styles MD [facility] [place] [address] 05/29/2024 10:15 AM EDT TH Visit (TeleHealth) [facility] [place] [address] Natalee Sanchez APRN [facility] [place] [address] Scheduled Procedures Name Priority Associated Diagnoses Date/Ti me INJECTION, ANESTHETIC AGENT AND/OR STEROID, TRANSFORAMINAL EPIDURAL, LUMBAR OR SACRAL, SINGLE LEVEL (WRVU 1.9) Left lumbar radiculopathy 05/08/2024 10:30 AM EDT documented as of this encounter Procedures Procedure Name Priority Date/Time Associated Diagnosis Comments POCT GLUCOSE Routine 02/13/2021 11:54 AM EDT EKG 12-LEAD STAT 02/13/2021 10:01 AM EDT ASCVD (arteriosclerotic cardiovascular disease) POCT GLUCOSE Routine 02/13/2021 6:36 AM EDT BMP W/FASTING GLUCOSE Routine 02/13/2021 4:45 AM EDT HEMOGRAM Routine 02/13/2021 4:45 AM EDT DIFFERENTIAL, AUTOMATED Routine 02/13/2021 4:45 AM EDT HC CBC,PLT & AUTO DIFF Routine 4:45 AM EDT HC MAGNESIUM, SERUM Routine 02/13/2021 4 :45 AM EDT POCT GLUCOSE Routine 02/12/2021 9:35 PM EDT POCT GLUCOSE Routine 02/12/2021 4:26 PM EDT POCT GLUCOSE Routine 02/12/2021 11:35 AM EDT POCT GLUCOSE Routine 02/12/2021 6:53 AM EDT BMP W/FASTING GLUCOSE Routine 02/12/2021 5:59 AM EDT HEMOGRAM Routine 02/12/2021 5:59 AM EDT DIFFERENTIAL, AUTOMATED Routine 02/12/2021 5:59 AM EDT HC CBC,PLT & AUTO DIFF Routine 5:59 AM EDT HC MAGNESIUM, SERUM Routine 02/12/2021 5 :59 AM EDT POCT GLUCOSE Routine 02/11/2021 8:41 PM EDT POCT GLUCOSE Routine 02/11/2021 4:06 PM EDT HC VENIPUNCTURE Routine 02/11/2021 11:37 AM EDT HC MAGNESIUM, SERUM Routine 02/11/2021 1 1:37 AM EDT POCT GLUCOSE Routine 02/11/2021 11:09 AM EDT POCT GLUCOSE Routine 02/11/2021 6:44 AM EDT BMP W/FASTING GLUCOSE Routine 02/11/2021 3:55 AM EDT HEMOGRAM Routine 02/11/2021 3:55 AM EDT DIFFERENTIAL, AUTOMATED Routine 02/11/2021 3:55 AM EDT HC VENIPUNCTURE Routine 02/11/2021 3:55 AM EDT HC MAGNESIUM, SERUM Routine 02/11/2021 3 :55 AM EDT POCT GLUCOSE Routine 02/10/2021 8:44 PM EDT POCT GLUCOSE Routine 02/10/2021 4:39 PM EDT HC VENIPUNCTURE Routine 02/10/2021 4:29 PM EDT HC VENIPUNCTURE Routine 02/10/2021 11:42 AM EDT HC MAGNESIUM, SERUM Routine 02/10/2021 1 1:42 AM EDT POCT GLUCOSE Routine 02/10/2021 11:20 AM EDT POCT GLUCOSE Routine 02/10/2021 6:37 AM EDT BMP W/FASTING GLUCOSE Routine 02/10/2021 3:38 AM EDT HEMOGRAM Routine 02/10/2021 3:38 AM EDT DIFFERENTIAL, AUTOMATED Routine 02/10/2021 3:38 AM EDT HC VENIPUNCTURE Routine 02/10/2021 3:38 AM EDT HC MAGNESIUM, SERUM Routine 02/10/2021 3 :38 AM EDT POCT GLUCOSE Routine 02/09/2021 8:23 PM EDT POCT GLUCOSE Routine 02/09/2021 4:18 PM EDT POCT GLUCOSE Routine 02/09/2021 11:51 AM EDT HC VENIPUNCTURE Routine 02/09/2021 11:27 AM EDT HC MAGNESIUM, SERUM Routine 02/09/2021 1 1:27 AM EDT POCT GLUCOSE Routine 02/09/2021 6:43 AM EDT BMP W/FASTING GLUCOSE Routine 02/09/2021 3:55 AM EDT HEMOGRAM Routine 02/09/2021 3:55 AM EDT DIFFERENTIAL, AUTOMATED Routine 02/09/2021 3:55 AM EDT HC VENIPUNCTURE Routine 02/09/2021 3:55 AM EDT HC MAGNESIUM, SERUM Routine 02/09/2021 3 :55 AM EDT POCT GLUCOSE Routine 02/08/2021 7:50 PM EDT POCT GLUCOSE Routine 02/08/2021 4:30 PM EDT POCT GLUCOSE Routine 02/08/2021 3:46 PM EDT POCT GLUCOSE Routine 02/08/2021 11:52 AM EDT HC VENIPUNCTURE Routine 02/08/2021 11:19 AM EDT HC MAGNESIUM, SERUM Routine 02/08/2021 1 1:19 AM EDT POCT GLUCOSE Routine 02/08/2021 6:49 AM EDT EKG 12-LEAD STAT 02/08/2021 6:04 AM EDT Chest pain, unspecified type XR CHEST ONE VIEW Routine 02/08/2021 5:5 4 AM EDT BMP W/FASTING GLUCOSE Routine 02/08/2021 4:05 AM EDT HEMOGRAM Routine 02/08/2021 4:05 AM EDT DIFFERENTIAL, AUTOMATED Routine 02/08/2021 4:05 AM EDT HC VENIPUNCTURE Routine 02/08/2021 4:05 AM EDT HC TROPONIN T STAT 02/08/2021 4:05 AM EDT HC MAGNESIUM, SERUM Routine 02/08/2021 4 :05 AM EDT HC LDL CHOLESTEROL, DIRECT Routine 02/08/2021 4:05 AM EDT HC CHOLESTEROL Routine 02/08/2021 4:05 AM EDT HEPATIC FUNCTION PANEL Routine 4:05 AM EDT POCT GLUCOSE Routine 02/07/2021 5:24 PM EDT CARDIAC CATHETERIZATION Routine 02/07/2021 3:20 PM EDT HC VENIPUNCTURE Routine 02/07/2021 12:03 PM EDT HC MAGNESIUM, SERUM Routine 02/07/2021 1 2:03 PM EDT POCT GLUCOSE Routine 02/07/2021 11:41 AM EDT POCT GLUCOSE Routine 02/07/2021 6:32 AM EDT BMP W/FASTING GLUCOSE Routine 02/07/2021 3:49 AM EDT HEMOGRAM Routine 02/07/2021 3:49 AM EDT DIFFERENTIAL, AUTOMATED Routine 02/07/2021 3:49 AM EDT HC CBC,PLT & AUTO DIFF Routine 3:49 AM EDT HC MAGNESIUM, SERUM Routine 02/07/2021 3 :49 AM EDT POCT GLUCOSE Routine 02/06/2021 11:36 PM EDT POCT GLUCOSE Routine 02/06/2021 4:15 PM EDT BMP W/FASTING GLUCOSE Routine 02/06/2021 1:32 PM EDT HC MAGNESIUM, SERUM Routine 02/06/2021 1 :32 PM EDT POCT GLUCOSE Routine 02/06/2021 11:15 AM EDT POCT GLUCOSE Routine 02/06/2021 7:20 AM EDT BMP W/FASTING GLUCOSE Routine 02/06/2021 1:55 AM EDT HEMOGRAM Routine 02/06/2021 1:55 AM EDT DIFFERENTIAL, AUTOMATED Routine 02/06/2021 1:55 AM EDT HC CBC,PLT & AUTO DIFF Routine 1:55 AM EDT HC MAGNESIUM, SERUM Routine 02/06/2021 1 :55 AM EDT POCT GLUCOSE Routine 02/05/2021 4:10 PM EDT ECHO COMPLETE W CONTRAST Routine 02/05/2021 3:46 PM EDT Congestive heart failure, unspecified HF chronicity, unspecified heart failure type BMP W/FASTING GLUCOSE Routine 02/05/2021 3:10 PM EDT HC MAGNESIUM, SERUM Routine 02/05/2021 3 :10 PM EDT POCT GLUCOSE Routine 02/05/2021 11:35 AM EDT POCT GLUCOSE Routine 02/05/2021 7:22 AM EDT BMP W/FASTING GLUCOSE Routine 02/05/2021 6:10 AM EDT HEMOGRAM Routine 02/05/2021 6:10 AM EDT DIFFERENTIAL, AUTOMATED Routine 02/05/2021 6:10 AM EDT HC CBC,PLT & AUTO DIFF Routine 6:10 AM EDT HC TROPONIN T Routine 02/05/2021 6:10 AM EDT HC BLOOD CULTURE- STAT 02/04/2021 11: 55 PM EDT HC BLOOD CULTURE- STAT 02/04/2021 11: 50 PM EDT RAPID COVID-19 PCR ([facility]/APD/[facility]) Routine 02/04/2021 10:28 PM EDT HC URINALYSIS ROUTINE Routine 02/04/2021 10:26 PM EDT URINE HOLD Routine 02/04/2021 10:26 PM EDT TYPE AND SCREEN VALIDITY STAT 02/04/2021 10:00 PM EDT ABORH RECHECK STATUS STAT 02/04/2021 10:00 PM EDT CMP W/FASTING GLUCOSE STAT 02/04/2021 10:00 PM EDT HEMOGRAM STAT 02/04/2021 10:00 PM EDT DIFFERENTIAL, AUTOMATED STAT 02/04/2021 10:00 PM EDT ABO/RH TYPING STAT 02/04/2021 10:00 PM EDT HC PARTIAL THROMBOPLASTIN TIME STAT 02/04/2021 10:00 PM EDT HC PROTHROMBIN TIME STAT 02/04/2021 1 0:00 PM EDT HC CBC,PLT & AUTO DIFF STAT 10:00 PM EDT ANTIBODY SCREEN STAT 02/04/2021 10:00 PM EDT HC ANTIBODY DETECTION,CAPTURE-R STAT 02/04/2021 10:00 PM EDT TROPONIN STAT 02/04/2021 10:00 PM EDT PRO-BRAIN NATRIURETIC PEPTIDE STAT 02/04/2021 10:00 PM EDT EKG 12-LEAD STAT 02/04/2021 9:38 PM EDT Acute biliary pancreatitis, unspecified complication status POCT GLUCOSE Routine 02/04/2021 9:04 PM EDT documented in this encounter Results * POCT Glucose (02/13/2021 11:54 AM EDT) [facility] POC Glucose 161 65 - 199 mg/dL [facility] Comment: Supplemental ranges: <140 mg/dL before meals <180 mg/dL all other times of the day Blood specimen (specimen) 02/13/2021 11:54 AM EDT 02/13/2021 11:54 AM EDT Jonelle Redman MD POINT OF CARE TEST O RDERABLES [facility] [place] [address] * EKG 12 Lead (02/13/2021 10:01 AM EDT) Ventricular rate 73 BPM MUSE SYSTEM Atrial Rate 73 BPM MUSE SYSTEM P-R Interval 228 ms MUSE SYSTEM QRS Duration 84 ms MUSE SYSTEM Q-T Interval 406 ms MUSE SYSTEM QTC Calculated (Bezet) 447 ms MUSE SYSTEM Calculated P Rheems 34 degrees MUSE SYSTEM Calculated R Rheems 56 degrees MUSE SYSTEM Calculated T Rheems 168 degrees MUSE SYSTEM INTERPRETATION Sinus rhythm with 1st degree A-V block Anterior infarct (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) T wave abnormality, consider lateral ischemia Abnormal ECG When compared with ECG of 08-FEB-2021 06:04, QT has shortened Confirmed by MD Christopher, Art Starr ([id number]) on 02/13/2021 2:52:50 PM MUSE SYSTEM 02/13/2021 10:0 1 AM EDT 02/13/2021 2:52 PM EDT Jonelle Redman MD ECG ORDERABLES Performing Organization Address City/[facility]/ZIP Co de Phone Number MUSE SYSTEM * POCT Glucose (02/13/2021 6:36 AM EDT) [facility] POC Glucose 139 65 - 199 mg/dL [facility] Comment: Supplemental ranges: <140 mg/dL before meals <180 mg/dL all other times of the day Blood specimen (specimen) 02/13/2021 6:36 AM EDT 02/13/2021 6:36 AM EDT Jonelle Redman MD POINT OF CARE TEST O RDERABLES Performing Organization Address City/[facility]/ZIP Co de Phone Number [facility] [place] [address] * (ABNORMAL) Differential, Automated (02/13/2021 4:45 AM EDT) [facility] Neutrophils % 69.6 % [facility] Neutr Abs (ANC) 8.08(H) 1.70 - 6.10 x10(3)/mc L [facility] Lymphocytes % 17.9 % [facility] Lymphocytes Abs 2.1 0.9 - 3.2 x10(3)/mc L [facility] Monocytes % 9.5 % [facility] Monocyte Abs 1.1(H) 0.3 - 0.9 x10(3)/mc L [facility] Eosinophils % 1.5 % [facility] Eosinophils Abs 0.2 0.0 - 0.4 x10(3)/[facility] Basophils % 0.4 % [facility] Basophils Abs 0.0 0.0 - 0.1 x10(3)/[facility] Immature Gran % 1.10 % [facility] Comment: Immature granulocytes(IG's)percentage and absolute count will include metamyelocytes, myelocytes, and promyelocytes. Blood smears from CBCs yielding IG's will be scanned manually for concordance. If this scan disagrees with the automated IG or if promyelocytes are noted, a manual differential will be performed. Anya Gran Abs 0.13(H) 0.00 - 0.04 x10(3)/[facility] Blood specimen (specimen) 02/13/2021 4:45 AM EDT 02/13/2021 5:23 AM EDT Narrative Resulting Agency Comment Spec In Lab Bibiana Yarbrough MD HEMATOLOGY ORDERABLE S [facility] [place] [address] * (ABNORMAL) Hemogram (02/13/2021 4:45 AM EDT) WBC 11.6(H) 4.0 - 9.5 x10(3)/[facility] RBC 2.46(L) 4.00 - 5.21 x10(6)/[facility] Hemoglobin 7.3(L) 11.7 - 15.5 gm/dL [facility] Hematocrit 22.8(L) 35.7 - 45.8 % [facility] MCV 92.7 82.6 - 94.4 fL [facility] MCH 29.7 27.1 - 32.0 pg [facility] MCHC 32.0 31.7 - 35.0 gm/dL [facility] Platelets 288 145 - 357 x10(3)/[facility] RDWSD 46.9(H) 37.0 - 46.0 [facility] RDWCV 13.9 11.5 - 14.1 % [facility] MPV 11.3 7.6 - 12.9 [facility] nRBC % Auto 0.0 % [facility] nRBC Abs Auto 0.000 0.000 - 0.000 x10(3)/mcL [facility] Blood specimen (specimen) 02/13/2021 4:45 AM EDT 02/13/2021 5:23 AM EDT Narrative Resulting Agency Comment Spec In Lab Bibiana Yarbrough MD HEMATOLOGY ORDERABLE S Performing Organization Address [facility]/ZIP Co de Phone Number [facility] [place] [address] * Magnesium (02/13/2021 4:45 AM EDT) Magnesium 0.78 0.69 - 1.07 mmol/L [facility] Blood specimen (specimen) 02/13/2021 4:45 AM EDT 02/13/2021 5:23 AM EDT Narrative Resulting Agency Comment Spec In Lab Brittny Woods MD CHEMISTRY ORDERABLES Performing Organization Address [facility] [[email or web address]] Co de Phone Number [facility] [place] [address] * (ABNORMAL) BMP w/fasting Glucose (02/13/2021 4:45 AM EDT) Glucose Fasting 136(H) 65 - 99 mg/dL [facility] Comment: ?Fasting* Glucose Interpretive [...] of Diabetes Mellitus, Position Statement from the [place] [employer]. ??Diabetes Care, Volume 33, Supplement 1, Oct 2009 BUN 22(H) 8 - 18 mg/dL [facility] Creatinine 1.10 0.70 - 1.20 mg/dL [facility] Sodium 131(L) 135 - 145 mmol/L [facility] Potassium 4.0 3.5 - 5.0 mmol/L [facility] Comment: Please note: ??Patients with WBC >100,000 may have falsely elevated Potassium levels. ??For accurate Potassium quantification in these patients send serum separator tube (gold top) for subsequent determinations. ??Contact the Clinical Chemistry Laboratory if there are any questions. Chloride 91(L) 98 - 107 mmol/L [facility] CO2 35(H) 22 - 31 mmol/L [facility] Anion Gap 5 5 - 15 mmol/L [facility] Calcium 7.9(L) 8.5 - 10.5 mg/dL [facility] Estimated GFR 52(L) >=60 mL/min/1. 73 m?? [facility] Comment: This patient? s estimated glomerular filtration rate (eGFR) is between 52 mL/min/1.73 m2 (patients with less muscle mass) and 60 mL/min/1.73 m2 (patients with more muscle mass) [...] in addition to eGFR. Blood specimen (specimen) 02/13/2021 4:45 AM EDT 02/13/2021 5:23 AM EDT Narrative Resulting Agency Comment Spec In Lab Brittny Woods MD CHEMISTRY ORDERABLES Performing Organization Address [facility]/ZIP Co de Phone Number [facility] [place] [address] * POCT Glucose (02/12/2021 9:35 PM EDT) POC Glucose 181 65 - 199 mg/dL [facility] Comment: Supplemental ranges: <140 mg/dL before meals <180 mg/dL all other times of the day Blood specimen (specimen) 02/12/2021 9:35 PM EDT 02/12/2021 9:35 PM EDT Jonelle Redman MD POINT OF CARE TEST O RDERAMARIE Performing Organization Address [facility] [[email or web address]] Co de Phone Number [facility] [place] [address] * POCT Glucose (02/12/2021 4:26 PM EDT) POC Glucose 135 65 - 199 mg/dL [facility] Comment: Supplemental ranges: <140 mg/dL before meals <180 mg/dL all other times of the day Blood specimen (specimen) 02/12/2021 4:26 PM EDT 02/12/2021 4:26 PM EDT Jonelle Redman MD POINT OF CARE TEST O RDWILLIAM Performing Organization Address [facility] [[email or web address]] Co de Phone Number [facility] [place] [address] * POCT Glucose (02/12/2021 11:35 AM EDT) POC Glucose 167 65 - 199 mg/dL [facility] Comment: Supplemental ranges: <140 mg/dL before meals <180 mg/dL all other times of the day Blood specimen (specimen) 02/12/2021 11:35 AM EDT 02/12/2021 11:35 AM EDT Jonelle Redman MD POINT OF CARE TEST O RDERABLES [facility] [place] [address] * POCT Glucose (02/12/2021 6:53 AM EDT) [facility] POC Glucose 123 65 - 199 mg/dL [facility] Comment: Supplemental ranges: <140 mg/dL before meals <180 mg/dL all other times of the day Blood specimen (specimen) 02/12/2021 6:53 AM EDT 02/12/2021 6:53 AM EDT Jonelle Redman MD POINT OF CARE TEST O RDWILLIAM Performing Organization Address City/[facility]/ZIP Co de Phone Number [facility] [place] [address] * (ABNORMAL) Differential, Automated (02/12/2021 5:59 AM EDT) Pathologist [facility] Neutrophils % 70.1 % [facility] Neutr Abs (ANC) 7.69(H) 1.70 - 6.10 x10(3)/mc L [facility] Lymphocytes % 18.1 % [facility] Lymphocytes Abs 2.0 0.9 - 3.2 x10(3)/ L [facility] Monocytes % 9.1 % [facility] Monocyte Abs 1.0(H) 0.3 - 0.9 x10(3)/mc L [facility] Eosinophils % 1.4 % [facility] Eosinophils Abs 0.2 0.0 - 0.4 x10(3)/mc L [facility] Basophils % 0.3 % [facility] Basophils Abs 0.0 0.0 - 0.1 x10(3)/mc L [facility] Immature Gran % 1.00 % [facility] Comment: Immature granulocytes(IG's)percentage and absolute count will include metamyelocytes, myelocytes, and promyelocytes. Blood smears from CBCs yielding IG's will be scanned manually for concordance. If this scan disagrees with the automated IG or if promyelocytes are noted, a manual differential will be performed. Anya Gran Abs 0.11(H) 0.00 - 0.04 x10(3)/mc L [facility] Blood specimen (specimen) 02/12/2021 5:59 AM EDT 02/12/2021 6:07 AM EDT Narrative Resulting Agency Comment Spec In Lab Bibiana Yarbrough MD HEMATOLOGY ORDERABLE S [facility] [place] [address] * (ABNORMAL) Hemogram (02/12/2021 5:59 AM EDT) WBC 11.0(H) 4.0 - 9.5 x10(3)/[facility] RBC 2.49(L) 4.00 - 5.21 x10(6)/[facility] Hemoglobin 7.4(L) 11.7 - 15.5 gm/dL [facility] Hematocrit 23.3(L) 35.7 - 45.8 % [facility] MCV 93.6 82.6 - 94.4 [facility] MCH 29.7 27.1 - 32.0 pg [facility] MCHC 31.8 31.7 - 35.0 gm/dL [facility] Platelets 271 145 - 357 x10(3)/[facility] RDWSD 46.3(H) 37.0 - 46.0 [facility] RDWCV 13.8 11.5 - 14.1 % [facility] MPV 11.4 7.6 - 12.9 [facility] nRBC % Auto 0.0 % [facility] nRBC Abs Auto 0.000 0.000 - 0.000 x10(3)/[facility] Blood specimen (specimen) 02/12/2021 5:59 AM EDT 02/12/2021 6:07 AM EDT Narrative Resulting Agency Comment Spec In Lab Bibiana Yarbrough MD HEMATOLOGY ORDERABLE S Performing Organization Address [facility] [[email or web address]] Co de Phone Number [facility] [place] [address] * Magnesium (02/12/2021 5:59 AM EDT) Magnesium 0.77 0.69 - 1.07 mmol/L [facility] Blood specimen (specimen) 02/12/2021 5:59 AM EDT 02/12/2021 6:07 AM EDT Narrative Resulting Agency Comment Spec In Lab Brittny Woods MD CHEMISTRY ORDERABLES Performing Organization Address [facility] de Phone Number [facility] [place] [address] * (ABNORMAL) BMP w/fasting Glucose (02/12/2021 5:59 AM EDT) Glucose Fasting 128(H) 65 - 99 mg/dL [facility] Comment: ?Fasting* Glucose Interpretive [...] of Diabetes Mellitus, Position Statement from the [place] [employer]. ??Diabetes Care, Volume 33, Supplement 1, Oct 2009 BUN 22(H) 8 - 18 mg/dL [facility] Creatinine 1.28(H) 0.70 - 1.20 mg/dL [facility] Sodium 134(L) 135 - 145 mmol/L [facility] Potassium 3.8 3.5 - 5.0 mmol/L [facility] Comment: Please note: ??Patients with WBC >100,000 may have falsely elevated Potassium levels. ??For accurate Potassium quantification in these patients send serum separator tube (gold top) for subsequent determinations. ??Contact the Clinical Chemistry Laboratory if there are any questions. Chloride 92(L) 98 - 107 mmol/L [facility] CO2 37(H) 22 - 31 mmol/L [facility] Anion Gap 5 5 - 15 mmol/L [facility] Calcium 8.0(L) 8.5 - 10.5 mg/dL [facility] Estimated GFR 43(L) >=60 mL/min/1. 73 m?? [facility] Comment: This patient? s [...] in addition to eGFR. Blood specimen (specimen) 02/12/2021 5:59 AM EDT 02/12/2021 6:07 AM EDT Narrative Resulting Agency Comment Spec In Lab Brittny Woods MD CHEMISTRY ORDERABLES [facility] [place] [address] * POCT Glucose (02/11/2021 8:41 PM EDT) POC Glucose 147 65 - 199 mg/dL [facility] Comment: Supplemental ranges: <140 mg/dL before meals <180 mg/dL all other times of the day Blood specimen (specimen) 02/11/2021 8:41 PM EDT 02/11/2021 8:41 PM EDT Jonelle Redman MD POINT OF CARE TEST O MAUREEN Performing Organization Address [facility] [[email or web address]] Co de Phone Number [facility] [place] [address] * POCT Glucose (02/11/2021 4:06 PM EDT) POC Glucose 132 65 - 199 mg/dL [facility] Comment: Supplemental ranges: <140 mg/dL before meals <180 mg/dL all other times of the day Blood specimen (specimen) 02/11/2021 4:06 PM EDT 02/11/2021 4:06 PM EDT Jonelle Redman MD POINT OF CARE TEST Scar REDDY Performing Organization Address [facility] [[email or web address]] Co de Phone Number [facility] [place] [address] * Magnesium (02/11/2021 11:37 AM EDT) Magnesium 0.92 0.69 - 1.07 mmol/L [facility] Blood specimen (specimen) 02/11/2021 11:37 AM EDT 02/11/2021 11:58 AM EDT Narrative Resulting Agency Comment Spec In Lab Travis Callahan MD CHEMISTRY ORDERABLES Performing Organization Address [facility] [[email or web address]] Co de Phone Number [facility] [place] [address] * (ABNORMAL) BMP w/fasting Glucose (02/11/2021 11:37 AM EDT) Glucose Fasting 144(H) 65 - 99 mg/dL [facility] Comment: ?Fasting* Glucose Interpretive [...] of Diabetes Mellitus, Position Statement from the [place] [employer]. ??Diabetes Care, Volume 33, Supplement 1, Oct 2009 BUN 19(H) 8 - 18 mg/dL [facility] Creatinine 1.12 0.70 - 1.20 mg/dL [facility] Sodium 133(L) 135 - 145 mmol/L [facility] Potassium 3.7 3.5 - 5.0 mmol/L [facility] Comment: Please note: ??Patients with WBC >100,000 may have falsely elevated Potassium levels. ??For accurate Potassium quantification in these patients send serum separator tube (gold top) for subsequent determinations. ??Contact the Clinical Chemistry Laboratory if there are any questions. Chloride 90(L) 98 - 107 mmol/L [facility] CO2 36(H) 22 - 31 mmol/L [facility] Anion Gap 7 5 - 15 mmol/L [facility] Calcium 8.5 8.5 - 10.5 mg/dL [facility] Estimated GFR 51(L) >=60 mL/min/1. 73 m?? [facility] Comment: This patient? s estimated glomerular filtration rate (eGFR) is between 51 mL/min/1.73 m2 (patients with less muscle mass) and 59 mL/min/1.73 m2 (patients with more muscle mass) [...] in addition to eGFR. Blood specimen (specimen) 02/11/2021 11:37 AM EDT 02/11/2021 11:58 AM EDT Narrative Resulting Agency Comment Spec In Lab Travis Callahan MD CHEMISTRY ORDERABLES Performing Organization Address [facility] [[email or web address]] Co de Phone Number [facility] [place] [address] * POCT Glucose (02/11/2021 11:09 AM EDT) POC Glucose 147 65 - 199 mg/dL [facility] Comment: Supplemental ranges: <140 mg/dL before meals <180 mg/dL all other times of the day Blood specimen (specimen) 02/11/2021 11:09 AM EDT 02/11/2021 11:09 AM EDT Jonelle Redman MD POINT OF CARE TEST O RDWILLIAM Performing Organization Address [facility] de Phone Number [facility] [place] [address] * POCT Glucose (02/11/2021 6:44 AM EDT) POC Glucose 139 65 - 199 mg/dL [facility] Comment: Supplemental ranges: <140 mg/dL before meals <180 mg/dL all other times of the day Blood specimen (specimen) 02/11/2021 6:44 AM EDT 02/11/2021 6:44 AM EDT Jonelle Redman MD POINT OF CARE TEST O RDWILLIAM Performing Organization Address [facility] de Phone Number [facility] [place] [address] * (ABNORMAL) Differential, Automated (02/11/2021 3:55 AM EDT) Neutrophils % 67.8 % [facility] Neutr Abs (ANC) 7.24(H) 1.70 - 6.10 x10(3)/[facility] Lymphocytes % 21.4 % [facility] Lymphocytes Abs 2.3 0.9 - 3.2 x10(3)/[facility] Monocytes % 8.1 % [facility] Monocyte Abs 0.9 0.3 - 0.9 x10(3)/[facility] Eosinophils % 1.4 % [facility] Eosinophils Abs 0.2 0.0 - 0.4 x10(3)/[facility] Basophils % 0.3 % [facility] Basophils Abs 0.0 0.0 - 0.1 x10(3)/[facility] Immature Gran % 1.00 % [facility] Comment: Immature granulocytes(IG's)percentage and absolute count will include metamyelocytes, myelocytes, and promyelocytes. Blood smears from CBCs yielding IG's will be scanned manually for concordance. If this scan disagrees with the automated IG or if promyelocytes are noted, a manual differential will be performed. Anya Gran Abs 0.11(H) 0.00 - 0.04 x10(3)/[facility] Blood specimen (specimen) 02/11/2021 3:55 AM EDT 02/11/2021 4:09 AM EDT Narrative Resulting Agency Comment Spec In Lab Bibiana Yarbrough MD HEMATOLOGY ORDERABLE S [facility] [place] [address] * (ABNORMAL) Hemogram (02/11/2021 3:55 AM EDT) WBC 10.7(H) 4.0 - 9.5 x10(3)/[facility] RBC 2.60(L) 4.00 - 5.21 x10(6)/[facility] Hemoglobin 7.6(L) 11.7 - 15.5 gm/dL [facility] Hematocrit 23.8(L) 35.7 - 45.8 % [facility] MCV 91.5 82.6 - 94.4 fL [facility] MCH 29.2 27.1 - 32.0 pg [facility] MCHC 31.9 31.7 - 35.0 gm/dL [facility] Platelets 273 145 - 357 x10(3)/[facility] RDWSD 46.4(H) 37.0 - 46.0 [facility] RDWCV 13.8 11.5 - 14.1 % [facility] MPV 11.5 7.6 - 12.9 [facility] nRBC % Auto 0.0 % [facility] nRBC Abs Auto 0.000 0.000 - 0.000 x10(3)/[facility] Blood specimen (specimen) 02/11/2021 3:55 AM EDT 02/11/2021 4:09 AM EDT Narrative Resulting Agency Comment Spec In Lab Bibiana Yarbrough MD HEMATOLOGY ORDERABLE S Performing Organization Address City/[facility]/ZIP Co de Phone Number [facility] [place] [address] * Magnesium (02/11/2021 3:55 AM EDT) Magnesium 0.69 0.69 - 1.07 mmol/L [facility] Blood specimen (specimen) 02/11/2021 3:55 AM EDT 02/11/2021 4:09 AM EDT Narrative Resulting Agency Comment Spec In Lab Brittny Woods MD CHEMISTRY ORDERABLES Performing Organization Address City/[facility]/ZIP Co de Phone Number [facility] [place] [address] * (ABNORMAL) BMP w/fasting Glucose (02/11/2021 3:55 AM EDT) [facility] Glucose Fasting 123(H) 65 - 99 mg/dL [facility] Comment: ?Fasting* Glucose Interpretive [...] of Diabetes Mellitus, Position Statement from the [place] [employer]. ??Diabetes Care, Volume 33, Supplement 1, Oct 2009 BUN 19(H) 8 - 18 mg/dL [facility] Creatinine 1.01 0.70 - 1.20 mg/dL [facility] Sodium 134(L) 135 - 145 mmol/L [facility] Potassium 3.9 3.5 - 5.0 mmol/L [facility] Comment: Please note: ??Patients with WBC >100,000 may have falsely elevated Potassium levels. ??For accurate Potassium quantification in these patients send serum separator tube (gold top) for subsequent determinations. ??Contact the Clinical Chemistry Laboratory if there are any questions. Chloride 93(L) 98 - 107 mmol/L [facility] CO2 35(H) 22 - 31 mmol/L [facility] Anion Gap 6 5 - 15 mmol/L [facility] Calcium 7.8(L) 8.5 - 10.5 mg/dL [facility] Estimated GFR 58(L) >=60 mL/min/1. 73 m?? [facility] Comment: This patient? s estimated glomerular filtration rate (eGFR) is between 58 mL/min/1.73 m2 (patients with less muscle mass) and 67 mL/min/1.73 m2 (patients with more muscle mass) [...] in addition to eGFR. Blood specimen (specimen) 02/11/2021 3:55 AM EDT 02/11/2021 4:09 AM EDT Narrative Resulting Agency Comment Spec In Lab Brittny Woods MD CHEMISTRY ORDERABLES Performing Organization Address City/[facility]/ZIP Co de Phone Number [facility] [place] [address] * POCT Glucose (02/10/2021 8:44 PM EDT) POC Glucose 142 65 - 199 mg/dL [facility] Comment: Supplemental ranges: <140 mg/dL before meals <180 mg/dL all other times of the day Blood specimen (specimen) 02/10/2021 8:44 PM EDT 02/10/2021 8:44 PM EDT Jonelle Redman MD POINT OF CARE TEST O RDERABLES Performing Organization Address [facility] [[email or web address]] Co de Phone Number [facility] [place] [address] * POCT Glucose (02/10/2021 4:39 PM EDT) POC Glucose 165 65 - 199 mg/dL [facility] Comment: Supplemental ranges: <140 mg/dL before meals <180 mg/dL all other times of the day Blood specimen (specimen) 02/10/2021 4:39 PM EDT 02/10/2021 4:39 PM EDT Jonelle Redman MD POINT OF CARE TEST O RDERABLES Performing Organization Address City/[facility]/ZIP Co de Phone Number [facility] [place] [address] * (ABNORMAL) Basic Metabolic Panel (non-fasting) (02/10/2021 4:29 PM EDT) Glucose Lvl 157 65 - 199 mg/dL [facility] Comment:Diabetes: >=200 mg/d L plus symptoms BUN 19(H) 8 - 18 mg/dL [facility] Creatinine 1.13 0.70 - 1.20 mg/dL [facility] Sodium 133(L) 135 - 145 mmol/L [facility] Potassium 4.0 3.5 - 5.0 mmol/L [facility] Comment: Please note: ??Patients with WBC >100,000 may have falsely elevated Potassium levels. ??For accurate Potassium quantification in these patients send serum separator tube (gold top) for subsequent determinations. ??Contact the Clinical Chemistry Laboratory if there are any questions. Chloride 92(L) 98 - 107 mmol/L [facility] CO2 32(H) 22 - 31 mmol/L [facility] Anion Gap 9 5 - 15 mmol/L [facility] Calcium 7.8(L) 8.5 - 10.5 mg/dL [facility] Estimated GFR 50(L) >=60 mL/min/1. 73 m?? [facility] Comment: This patient? s estimated glomerular filtration rate (eGFR) is between 50 mL/min/1.73 m2 (patients with less muscle mass) and 58 mL/min/1.73 m2 (patients with more muscle mass) [...] in addition to eGFR. Blood specimen (specimen) 02/10/2021 4:29 PM EDT 02/10/2021 4:38 PM EDT Narrative Resulting Agency Comment Spec In Lab Jonelle Redman MD CHEMISTRY ORDERABLES Performing Organization Address [facility]/ZIP Co de Phone Number [facility] [place] [address] * Magnesium (02/10/2021 11:42 AM EDT) Magnesium 0.82 0.69 - 1.07 mmol/L [facility] Blood specimen (specimen) 02/10/2021 11:42 AM EDT 02/10/2021 11:48 AM EDT Narrative Resulting Agency Comment Spec In Lab Travis Callahan MD CHEMISTRY ORDERABLES Performing Organization Address [facility] [[email or web address]] Co de Phone Number [facility] [place] [address] * (ABNORMAL) BMP w/fasting Glucose (02/10/2021 11:42 AM EDT) Glucose Fasting 150(H) 65 - 99 mg/dL [facility] Comment: ?Fasting* Glucose Interpretive [...] of Diabetes Mellitus, Position Statement from the [place] [employer]. ??Diabetes Care, Volume 33, Supplement 1, Oct 2009 BUN 19(H) 8 - 18 mg/dL [facility] Creatinine 1.17 0.70 - 1.20 mg/dL [facility] Sodium 135 135 - 145 mmol/L [facility] Potassium 3.7 3.5 - 5.0 mmol/L [facility] Comment: Please note: ??Patients with WBC >100,000 may have falsely elevated Potassium levels. ??For accurate Potassium quantification in these patients send serum separator tube (gold top) for subsequent determinations. ??Contact the Clinical Chemistry Laboratory if there are any questions. Chloride 93(L) 98 - 107 mmol/L [facility] CO2 33(H) 22 - 31 mmol/L [facility] Anion Gap 9 5 - 15 mmol/L [facility] Calcium 8.1(L) 8.5 - 10.5 mg/dL [facility] Estimated GFR 48(L) >=60 mL/min/1. 73 m?? [facility] Comment: This patient? s estimated glomerular filtration rate (eGFR) is between 48 mL/min/1.73 m2 (patients with less muscle mass) and 56 mL/min/1.73 m2 (patients with more muscle mass) [...] in addition to eGFR. Blood specimen (specimen) 02/10/2021 11:42 AM EDT 02/10/2021 11:48 AM EDT Narrative Resulting Agency Comment Spec In Lab Travis Callahan MD CHEMISTRY ORDERABLES [facility] [place] [address] * POCT Glucose (02/10/2021 11:20 AM EDT) POC Glucose 197 65 - 199 mg/dL [facility] Comment: Supplemental ranges: <140 mg/dL before meals <180 mg/dL all other times of the day Blood specimen (specimen) 02/10/2021 11:20 AM EDT 02/10/2021 11:20 AM EDT Jonelle Redman MD POINT OF CARE TEST O RDERABLES Performing Organization Address City/[facility]/ZIP Co de Phone Number [facility] [place] [address] * POCT Glucose (02/10/2021 6:37 AM EDT) Pathologist [facility] POC Glucose 174 65 - 199 mg/dL [facility] Comment: Supplemental ranges: <140 mg/dL before meals <180 mg/dL all other times of the day Blood specimen (specimen) 02/10/2021 6:37 AM EDT 02/10/2021 6:37 AM EDT Jonelle Redman MD POINT OF CARE TEST O RDWILLIAM Performing Organization Address [facility] [[email or web address]] Co de Phone Number [facility] [place] [address] * (ABNORMAL) Differential, Automated (02/10/2021 3:38 AM EDT) Pathologist [facility] Neutrophils % 70.9 % [facility] Neutr Abs (ANC) 7.38(H) 1.70 - 6.10 x10(3)/mc L [facility] Lymphocytes % 20.2 % [facility] Lymphocytes Abs 2.1 0.9 - 3.2 x10(3)/[facility] Monocytes % 6.4 % [facility] Monocyte Abs 0.7 0.3 - 0.9 x10(3)/ L [facility] Eosinophils % 1.4 % [facility] Eosinophils Abs 0.2 0.0 - 0.4 x10(3)/[facility] Basophils % 0.3 % [facility] Basophils Abs 0.0 0.0 - 0.1 x10(3)/ L [facility] Immature Gran % 0.80 % [facility] Comment: Immature granulocytes(IG's)percentage and absolute count will include metamyelocytes, myelocytes, and promyelocytes. Blood smears from CBCs yielding IG's will be scanned manually for concordance. If this scan disagrees with the automated IG or if promyelocytes are noted, a manual differential will be performed. Anya Gran Abs 0.08(H) 0.00 - 0.04 x10(3)/ L [facility] Blood specimen (specimen) 02/10/2021 3:38 AM EDT 02/10/2021 3:43 AM EDT Narrative Resulting Agency Comment Spec In Lab Bibiana Yarbrough MD HEMATOLOGY ORDERABLE S [facility] [place] [address] * (ABNORMAL) Hemogram (02/10/2021 3:38 AM EDT) WBC 10.4(H) 4.0 - 9.5 x10(3)/[facility] RBC 3.05(L) 4.00 - 5.21 x10(6)/[facility] Hemoglobin 9.2(L) 11.7 - 15.5 gm/dL [facility] Hematocrit 28.0(L) 35.7 - 45.8 % [facility] MCV 91.8 82.6 - 94.4 [facility] MCH 30.2 27.1 - 32.0 pg [facility] MCHC 32.9 31.7 - 35.0 gm/dL [facility] Platelets 344 145 - 357 x10(3)/[facility] RDWSD 47.4(H) 37.0 - 46.0 [facility] RDWCV 14.0 11.5 - 14.1 % [facility] MPV 11.6 7.6 - 12.9 [facility] nRBC % Auto 0.0 % [facility] nRBC Abs Auto 0.000 0.000 - 0.000 x10(3)/[facility] Blood specimen (specimen) 02/10/2021 3:38 AM EDT 02/10/2021 3:43 AM EDT Narrative Resulting Agency Comment Spec In Lab Bibiana Yarbrough MD HEMATOLOGY ORDERABLE S Performing Organization Address [facility] [[email or web address]] Co de Phone Number [facility] [place] [address] * Magnesium (02/10/2021 3:38 AM EDT) Magnesium 0.85 0.69 - 1.07 mmol/L [facility] Blood specimen (specimen) 02/10/2021 3:38 AM EDT 02/10/2021 3:43 AM EDT Narrative Resulting Agency Comment Spec In Lab Brittny Woods MD CHEMISTRY ORDERABLES Performing Organization Address [facility] [[email or web address]] Co de Phone Number [facility] [place] [address] * (ABNORMAL) BMP w/fasting Glucose (02/10/2021 3:38 AM EDT) Glucose Fasting 132(H) 65 - 99 mg/dL [facility] Comment: ?Fasting* Glucose Interpretive [...] of Diabetes Mellitus, Position Statement from the [place] [employer]. ??Diabetes Care, Volume 33, Supplement 1, Oct 2009 BUN 19(H) 8 - 18 mg/dL [facility] Creatinine 0.99 0.70 - 1.20 mg/dL [facility] Sodium 132(L) 135 - 145 mmol/L [facility] Potassium Not Perf 3.5 - 5.0 [facility] Comment: Unable to quantitate due to sample hemolysis. ??Sample redraw suggested. Called by: , Read back by: kirill ortega, Date/Time:02/10/21 04:18. Please note: ??Patients with WBC >100,000 may have falsely elevated Potassium levels. ??For accurate Potassium quantification in these patients send serum separator tube (gold top) for subsequent determinations. ??Contact the Clinical Chemistry Laboratory if there are any questions. Chloride 91(L) 98 - 107 mmol/L [facility] CO2 32(H) 22 - 31 mmol/L [facility] Anion Gap 9 5 - 15 mmol/L [facility] Calcium 7.9(L) 8.5 - 10.5 mg/dL [facility] Estimated GFR 59(L) >=60 mL/min/1. 73 m?? [facility] Comment: This patient? s estimated glomerular filtration rate (eGFR) is between 59 mL/min/1.73 m2 (patients with less muscle mass) and 68 mL/min/1.73 m2 (patients with more muscle mass) [...] in addition to eGFR. Blood specimen (specimen) 02/10/2021 3:38 AM EDT 02/10/2021 3:43 AM EDT Narrative Resulting Agency Comment Spec In Lab Brittny Woods MD CHEMISTRY ORDERABLES [facility] [place] [address] * POCT Glucose (02/09/2021 8:23 PM EDT) POC Glucose 173 65 - 199 mg/dL [facility] Comment: Supplemental ranges: <140 mg/dL before meals <180 mg/dL all other times of the day Blood specimen (specimen) 02/09/2021 8:23 PM EDT 02/09/2021 8:23 PM EDT Jonelle Redman MD POINT OF CARE TEST O MAUREEN Performing Organization Address City/[facility]/ZIP Co de Phone Number [facility] [place] [address] * POCT Glucose (02/09/2021 4:18 PM EDT) POC Glucose 168 65 - 199 mg/dL [facility] Comment: Supplemental ranges: <140 mg/dL before meals <180 mg/dL all other times of the day Blood specimen (specimen) 02/09/2021 4:18 PM EDT 02/09/2021 4:18 PM EDT Jonelel Redman MD POINT OF CARE TEST O MAUREEN Performing Organization Address [facility] [[email or web address]] Co de Phone Number [facility] [place] [address] * POCT Glucose (02/09/2021 11:51 AM EDT) POC Glucose 186 65 - 199 mg/dL [facility] Comment: Supplemental ranges: <140 mg/dL before meals <180 mg/dL all other times of the day Blood specimen (specimen) 02/09/2021 11:51 AM EDT 02/09/2021 11:51 AM EDT Jonelle Redman MD POINT OF CARE TEST O MAUREEN Performing Organization Address City/[facility] [[email or web address]] Co de Phone Number [facility] [place] [address] * Magnesium (02/09/2021 11:27 AM EDT) Magnesium 0.87 0.69 - 1.07 mmol/L [facility] Blood specimen (specimen) 02/09/2021 11:27 AM EDT 02/09/2021 11:38 AM EDT Narrative Resulting Agency Comment Spec In Lab Travis Callahan MD CHEMISTRY ORDERABLES [facility] [place] [address] * (ABNORMAL) BMP w/fasting Glucose (02/09/2021 11:27 AM EDT) Glucose Fasting 173(H) 65 - 99 mg/dL [facility] Comment: ?Fasting* Glucose Interpretive [...] of Diabetes Mellitus, Position Statement from the [place] [employer]. ??Diabetes Care, Volume 33, Supplement 1, Oct 2009 BUN 19(H) 8 - 18 mg/dL [facility] Creatinine 1.09 0.70 - 1.20 mg/dL [facility] Sodium 131(L) 135 - 145 mmol/L [facility] Potassium 3.9 3.5 - 5.0 mmol/L [facility] Comment: Please note: ??Patients with WBC >100,000 may have falsely elevated Potassium levels. ??For accurate Potassium quantification in these patients send serum separator tube (gold top) for subsequent determinations. ??Contact the Clinical Chemistry Laboratory if there are any questions. Chloride 92(L) 98 - 107 mmol/L [facility] CO2 30 22 - 31 mmol/L [facility] Anion Gap 9 5 - 15 mmol/L [facility] Calcium 7.8(L) 8.5 - 10.5 mg/dL [facility] Estimated GFR 52(L) >=60 mL/min/1. 73 m?? [facility] Comment: This patient? s estimated glomerular filtration rate (eGFR) is between 52 mL/min/1.73 m2 (patients with less muscle mass) and 61 mL/min/1.73 m2 (patients with more muscle mass) [...] in addition to eGFR. Blood specimen (specimen) 02/09/2021 11:27 AM EDT 02/09/2021 11:38 AM EDT Narrative Resulting Agency Comment Spec In Lab Travis Callahan MD CHEMISTRY ORDERABLES Performing Organization Address City/[facility]/ZIP Co de Phone Number [facility] [place] [address] * POCT Glucose (02/09/2021 6:43 AM EDT) POC Glucose 133 65 - 199 mg/dL [facility] Comment: Supplemental ranges: <140 mg/dL before meals <180 mg/dL all other times of the day Blood specimen (specimen) 02/09/2021 6:43 AM EDT 02/09/2021 6:43 AM EDT Travis Callahan MD POINT OF CARE TEST O RDERABLES [facility] [place] [address] * (ABNORMAL) Differential, Automated (02/09/2021 3:55 AM EDT) Neutrophils % 73.5 % [facility] Neutr Abs (ANC) 8.28(H) 1.70 - 6.10 x10(3)/[facility] Lymphocytes % 16.3 % [facility] Lymphocytes Abs 1.8 0.9 - 3.2 x10(3)/[facility] Monocytes % 7.6 % [facility] Monocyte Abs 0.8 0.3 - 0.9 x10(3)/[facility] Eosinophils % 1.3 % [facility] Eosinophils Abs 0.2 0.0 - 0.4 x10(3)/[facility] Basophils % 0.2 % [facility] Basophils Abs 0.0 0.0 - 0.1 x10(3)/[facility] Immature Gran % 1.10 % [facility] Comment: Immature granulocytes(IG's)percentage and absolute count will include metamyelocytes, myelocytes, and promyelocytes. Blood smears from CBCs yielding IG's will be scanned manually for concordance. If this scan disagrees with the automated IG or if promyelocytes are noted, a manual differential will be performed. Anya Gran Abs 0.12(H) 0.00 - 0.04 x10(3)/[facility] Blood specimen (specimen) 02/09/2021 3:55 AM EDT 02/09/2021 4:02 AM EDT Narrative Resulting Agency Comment Spec In Lab Bibiana Yarbrough MD HEMATOLOGY ORDERABLE S [facility] [place] [address] * (ABNORMAL) Hemogram (02/09/2021 3:55 AM EDT) WBC 11.2(H) 4.0 - 9.5 x10(3)/[facility] LABORATORY RBC 2.87(L) 4.00 - 5.21 x10(6)/[facility] LABORATORY Hemoglobin 8.5(L) 11.7 - 15.5 gm/dL [facility] Hematocrit 26.8(L) 35.7 - 45.8 % [facility] MCV 93.4 82.6 - 94.4 [facility] LABORATORY MCH 29.6 27.1 - 32.0 pg [facility] MCHC 31.7 31.7 - 35.0 gm/dL [facility] Platelets 283 145 - 357 x10(3)/[facility] LABORATORY RDWSD 47.4(H) 37.0 - 46.0 [facility] RDWCV 13.9 11.5 - 14.1 % [facility] MPV 11.7 7.6 - 12.9 [facility] LABORATORY nRBC % Auto 0.0 % [facility] LABORATORY nRBC Abs Auto 0.000 0.000 - 0.000 x10(3)/[facility] LABORATORY Blood specimen (specimen) 02/09/2021 3:55 AM EDT 02/09/2021 4:02 AM EDT Narrative Resulting Agency Comment Spec In Lab Bibiana Yarbrough MD HEMATOLOGY ORDERABLE S Performing Organization Address City/[facility]/ZIP Co de Phone Number [facility] [place] [address] * (ABNORMAL) Magnesium (02/09/2021 3:55 AM EDT) Magnesium 0.67(L) 0.69 - 1.07 mmol/L [facility] Blood specimen (specimen) 02/09/2021 3:55 AM EDT 02/09/2021 4:03 AM EDT Narrative Resulting Agency Comment Spec In Lab Brittny Woods MD CHEMISTRY ORDERABLES [facility] [place] [address] * (ABNORMAL) BMP w/fasting Glucose (02/09/2021 3:55 AM EDT) [facility] Signature Glucose Fasting 122(H) 65 - 99 mg/dL [facility] Comment: ?Fasting* Glucose Interpretive [...] of Diabetes Mellitus, Position Statement from the [place] [employer]. ??Diabetes Care, Volume 33, Supplement 1, Oct 2009 BUN 20(H) 8 - 18 mg/dL [facility] Creatinine 1.07 0.70 - 1.20 mg/dL [facility] Sodium 135 135 - 145 mmol/L [facility] Potassium 4.0 3.5 - 5.0 mmol/L [facility] Comment: Please note: ??Patients with WBC >100,000 may have falsely elevated Potassium levels. ??For accurate Potassium quantification in these patients send serum separator tube (gold top) for subsequent determinations. ??Contact the Clinical Chemistry Laboratory if there are any questions. Chloride 94(L) 98 - 107 mmol/L [facility] CO2 31 22 - 31 mmol/L [facility] Anion Gap 10 5 - 15 mmol/L [facility] Calcium 8.0(L) 8.5 - 10.5 mg/dL [facility] Estimated GFR 54(L) >=60 mL/min/1. 73 m?? [facility] Comment: This patient? s estimated glomerular filtration rate (eGFR) is between 54 mL/min/1.73 m2 (patients with less muscle mass) and 62 mL/min/1.73 m2 (patients with more muscle mass) [...] in addition to eGFR. Blood specimen (specimen) 02/09/2021 3:55 AM EDT 02/09/2021 4:03 AM EDT Narrative Resulting Agency Comment Spec In Lab Brittny Woods MD CHEMISTRY ORDERABLES Performing Organization Address [facility] [[email or web address]] Co de Phone Number [facility] [place] [address] * POCT Glucose (02/08/2021 7:50 PM EDT) POC Glucose 133 65 - 199 mg/dL [facility] Comment: Supplemental ranges: <140 mg/dL before meals <180 mg/dL all other times of the day Blood specimen (specimen) 02/08/2021 7:50 PM EDT 02/08/2021 7:50 PM EDT Travis Callahan MD POINT OF CARE TEST O RDERABLES Performing Organization Address [facility] [[email or web address]] Co de Phone Number [facility] [place] [address] * POCT Glucose (02/08/2021 4:30 PM EDT) POC Glucose 196 65 - 199 mg/dL [facility] Comment: Supplemental ranges: <140 mg/dL before meals <180 mg/dL all other times of the day Blood specimen (specimen) 02/08/2021 4:30 PM EDT 02/08/2021 4:30 PM EDT Travis Callahan MD POINT OF CARE TEST O RDERABLES Performing Organization Address [facility] [[email or web address]] Co de Phone Number [facility] [place] [address] * POCT Glucose (02/08/2021 3:46 PM EDT) POC Glucose 161 65 - 199 mg/dL [facility] Comment: Supplemental ranges: <140 mg/dL before meals <180 mg/dL all other times of the day Blood specimen (specimen) 02/08/2021 3:46 PM EDT 02/08/2021 3:46 PM EDT Travis Callahan MD POINT OF CARE TEST O RDERABLES Performing Organization Address [facility] de Phone Number [facility] [place] [address] * POCT Glucose (02/08/2021 11:52 AM EDT) POC Glucose 163 65 - 199 mg/dL [facility] Comment: Supplemental ranges: <140 mg/dL before meals <180 mg/dL all other times of the day Blood specimen (specimen) 02/08/2021 11:52 AM EDT 02/08/2021 11:52 AM EDT Travis Callahan MD POINT OF CARE TEST O RDERABLES Performing Organization Address [facility] [[email or web address]] Co de Phone Number [facility] [place] [address] * Magnesium (02/08/2021 11:19 AM EDT) Magnesium 0.70 0.69 - 1.07 mmol/L [facility] Blood specimen (specimen) 02/08/2021 11:19 AM EDT 02/08/2021 11:24 AM EDT Narrative Resulting Agency Comment Spec In Lab Travis Callahan MD CHEMISTRY ORDERABLES Performing Organization Address [facility] [[email or web address]] Co de Phone Number [facility] [place] [address] * (ABNORMAL) BMP w/fasting Glucose (02/08/2021 11:19 AM EDT) [facility] Signature Glucose Fasting 167(H) 65 - 99 mg/dL [facility] Comment: ?Fasting* Glucose Interpretive [...] of Diabetes Mellitus, Position Statement from the [place] Diabetes Association. ??Diabetes Care, Volume 33, Supplement 1, Oct 2009 BUN 22(H) 8 - 18 mg/dL [facility] Creatinine 1.10 0.70 - 1.20 mg/dL [facility] Sodium 134(L) 135 - 145 mmol/L [facility] Potassium 4.0 3.5 - 5.0 mmol/L [facility] Comment: Please note: ??Patients with WBC >100,000 may have falsely elevated Potassium levels. ??For accurate Potassium quantification in these patients send serum separator tube (gold top) for subsequent determinations. ??Contact the Clinical Chemistry Laboratory if there are any questions. Chloride 93(L) 98 - 107 mmol/L [facility] CO2 32(H) 22 - 31 mmol/L [facility] Anion Gap 9 5 - 15 mmol/L [facility] Calcium 7.8(L) 8.5 - 10.5 mg/dL [facility] Estimated GFR 52(L) >=60 mL/min/1. 73 m?? [facility] Comment: This patient? s estimated glomerular filtration rate (eGFR) is between 52 mL/min/1.73 m2 (patients with less muscle mass) and 60 mL/min/1.73 m2 (patients with more muscle mass) [...] in addition to eGFR. Blood specimen (specimen) 02/08/2021 11:19 AM EDT 02/08/2021 11:24 AM EDT Narrative Resulting Agency Comment Spec In Lab Travis Callahan MD CHEMISTRY ORDERABLES Performing Organization Address [facility] [[email or web address]] Co de Phone Number [facility] [place] [address] * POCT Glucose (02/08/2021 6:49 AM EDT) Pathologist [facility] POC Glucose 163 65 - 199 mg/dL [facility] Comment: Supplemental ranges: <140 mg/dL before meals <180 mg/dL all other times of the day Blood specimen (specimen) 02/08/2021 6:49 AM EDT 02/08/2021 6:49 AM EDT Travis Callahan MD POINT OF CARE TEST O RDERABLES Performing Organization Address [facility] [[email or web address]] Co de Phone Number [facility] [place] [address] * EKG 12 Lead (02/08/2021 6:04 AM EDT) Ventricular rate 87 BPM MUSE SYSTEM Atrial Rate 87 BPM MUSE SYSTEM P-R Interval 206 ms MUSE SYSTEM QRS Duration 84 ms MUSE SYSTEM Q-T Interval 420 ms MUSE SYSTEM QTC Calculated (Bezet) 505 ms MUSE SYSTEM Calculated P Rheems 8 degrees MUSE SYSTEM Calculated R Rheems 29 degrees MUSE SYSTEM Calculated T Rheems 164 degrees MUSE SYSTEM INTERPRETATION Normal sinus rhythm Low voltage QRS Cannot rule out Anterior infarct , age undetermined T wave abnormality, consider lateral ischemia Abnormal ECG When compared with ECG of 04-FEB-2021 21:38, T wave inversion less evident in Anterolateral leads Confirmed by MD Albert, Immanuel ([id number]) on 02/09/2021 10:58:19 AM MUSE SYSTEM 02/08/2021 6:04 AM EDT 02/09/2021 10:58 AM EDT Travis Callahan MD ECG ORDERABLES MUSE SYSTEM * XR Chest One View (02/08/2021 5:54 AM EDT) Anatomical Region Laterality Modality Chest N/A Digital Radiogra phy Impressions 02/08/2021 8:04 AM EDT 1. ??Decreased pulmonary vascular congestion and interstitial edema compared to 02/04/2021. 2. ??No new focal consolidation. 3. ??No pleural effusions. Thank you for letting us participate in the care of this patient. ??If you are a health care provider and have any questions regarding this report, please contact the number below. ??For patients who have questions please contact the health day care attendant that requested your imaging first. ? Electronically signed by: Darren Bull MD, [facility] ([phone]), at 02/08/2021 8:04 AM Narrative 02/08/2021 8:04 AM EDT EXAMINATION: XR CHEST ONE VIEW CLINICAL HISTORY: chest pain TECHNIQUE: 1 view of the chest COMPARISON: Chest radiograph 02/04/2021 FINDINGS: Pulmonary vascular markings are prominent and indistinct however the degree of congestion has decreased compared to prior. The interstitial edema has nearly resolved. No new focal consolidation. No pneumothorax. No pleural effusions. Unchanged size of the cardiomediastinal silhouette and bilateral russ. No acute osseous findings Procedure Note Darren Bull MD - 02/08/2021 EXAMINATION: XR CHEST ONE VIEW CLINICAL HISTORY: chest pain TECHNIQUE: 1 view of the chest COMPARISON: Chest radiograph 02/04/2021 FINDINGS: Pulmonary vascular markings are prominent and indistinct however thedegree of congestion has decreased compared to prior. The interstitial edema hasnearly resolved. No new focal consolidation. No pneumothorax. No pleuraleffusions. Unchanged size of the cardiomediastinal silhouette and bilateral russ. Noacute osseous findings IMPRESSION 1. Decreased pulmonary vascular congestion and interstitial edemacompared to 02/04/2021. 2. No new focal consolidation. 3. No pleural effusions. Thank you for letting us participate in the care of this patient. If youare a health care provider and have any questions regarding this report,please contact the number below. For patients who have questions please contactthe health day care attendant that requested your imaging first. Electronically signed by: Darren Bull MD, [facility]([phone]), at 02/08/2021 8:04 AM Travis Callahan MD IMG DX ORDERABLES * (ABNORMAL) Hepatic Function Panel (02/08/2021 4:05 AM EDT) Total Protein 6.3 6.1 - 8.0 gm/dL [facility] Albumin 1.9(L) 3.2 - 5.2 gm/dL [facility] AST 47(H) 0 - 30 unit/L [facility] ALT 23 0 - 30 unit/L [facility] Alk Phos 313(H) 35 - 105 unit/L [facility] Total Bilirubin 0.4 0.2 - 1.3 mg/dL [facility] Bili, Direct 0.2 0.0 - 0.3 mg/dL [facility] Blood specimen (specimen) Venous Draw / Unknown 02/08/2021 4:05 AM EDT 02/08/2021 4:18 AM EDT Narrative Resulting Agency Comment Spec In Lab Freddie Montes MD CHEMISTRY ORDERABLES Performing Organization Address [facility] [[email or web address]] Co de Phone Number [facility] [place] [address] * (ABNORMAL) Troponin (02/08/2021 4:05 AM EDT) [facility] Troponin-T 0.03(H) 0.00 - 0.00 ng/mL [facility] Comment: The 99th percentile for Troponin T is less than 0.01 ng/mL, any detectable cTnT concentration using this assay should be considered elevated. According to the third universal definition of myocardial infarction the following criteria with a clinical presentation consistent with acute myocardial ischemia meets the diagnosis for a myocardial infarction ([place]). Detection of a rise and/or fall of cTnT, with at least one value greater than the 99th percentile (> or = 0.01) and with at least one of the following ?? Symptoms of ischemia ?? New or presumed new significant BO-helwjan-I wave (ST-T) changes or new left bundle [...] additional sample may be indicated. Reference: Third [place] Definition of Myocardial Infarction. Journal of the [place] College [employer]iology 2012;60:1581-98 Blood specimen (specimen) 02/08/2021 4:05 AM EDT 02/08/2021 4:16 AM EDT Narrative Resulting Agency Comment Spec In Lab Travis Callahan MD CHEMISTRY ORDERABLES Performing Organization Address [facility] [[email or web address]] Co de Phone Number [facility] [place] [address] * (ABNORMAL) Differential, Automated (02/08/2021 4:05 AM EDT) Neutrophils % 78.4 % [facility] Neutr Abs (ANC) 9.62(H) 1.70 - 6.10 x10(3)/[facility] LABORATORY Lymphocytes % 12.2 % [facility] Lymphocytes Abs 1.5 0.9 - 3.2 x10(3)/[facility] LABORATORY Monocytes % 7.7 % [facility] Monocyte Abs 0.9 0.3 - 0.9 x10(3)/[facility] LABORATORY Eosinophils % 0.8 % [facility] Eosinophils Abs 0.1 0.0 - 0.4 x10(3)/[facility] LABORATORY Basophils % 0.2 % [facility] Basophils Abs 0.0 0.0 - 0.1 x10(3)/[facility] LABORATORY Immature Gran % 0.70 % [facility] Comment: Immature granulocytes(IG's)percentage and absolute count will include metamyelocytes, myelocytes, and promyelocytes. Blood smears from CBCs yielding IG's will be scanned manually for concordance. If this scan disagrees with the automated IG or if promyelocytes are noted, a manual differential will be performed. Anya Gran Abs 0.09(H) 0.00 - 0.04 x10(3)/[facility] LABORATORY Blood specimen (specimen) 02/08/2021 4:05 AM EDT 02/08/2021 4:16 AM EDT Narrative Resulting Agency Comment Spec In Lab Bibiana Yarbrough MD HEMATOLOGY ORDERABLE S [facility] [place] [address] * (ABNORMAL) Hemogram (02/08/2021 4:05 AM EDT) WBC 12.3(H) 4.0 - 9.5 x10(3)/[facility] LABORATORY RBC 2.66(L) 4.00 - 5.21 x10(6)/[facility] LABORATORY Hemoglobin 8.0(L) 11.7 - 15.5 gm/dL [facility] Hematocrit 24.3(L) 35.7 - 45.8 % [facility] MCV 91.4 82.6 - 94.4 [facility] LABORATORY MCH 30.1 27.1 - 32.0 pg [facility] MCHC 32.9 31.7 - 35.0 gm/dL [facility] Platelets 248 145 - 357 x10(3)/[facility] LABORATORY RDWSD 47.6(H) 37.0 - 46.0 fL [facility] RDWCV 14.2(H) 11.5 - 14.1 % [facility] MPV 11.8 7.6 - 12.9 [facility] LABORATORY nRBC % Auto 0.0 % [facility] nRBC Abs Auto 0.000 0.000 - 0.000 x10(3)/[facility] LABORATORY Blood specimen (specimen) 02/08/2021 4:05 AM EDT 02/08/2021 4:16 AM EDT Narrative Resulting Agency Comment Spec In Lab Bibiana Yarbrough MD HEMATOLOGY ORDERABLE S Performing Organization Address City/[facility]/[place] [address] * (ABNORMAL) Magnesium (02/08/2021 4:05 AM EDT) Magnesium 0.66(L) 0.69 - 1.07 mmol/L [facility] Blood specimen (specimen) 02/08/2021 4:05 AM EDT 02/08/2021 4:16 AM EDT Narrative Resulting Agency Comment Spec In Lab Brittny Woods MD CHEMISTRY ORDERABLES [facility] [place] [address] * (ABNORMAL) BMP w/fasting Glucose (02/08/2021 4:05 AM EDT) Glucose Fasting 164(H) 65 - 99 mg/dL [facility] Comment: ?Fasting* Glucose Interpretive [...] of Diabetes Mellitus, Position Statement from the [place] Diabetes Association. ??Diabetes Care, Volume 33, Supplement 1, Oct 2009 BUN 23(H) 8 - 18 mg/dL [facility] Creatinine 1.11 0.70 - 1.20 mg/dL [facility] Sodium 133(L) 135 - 145 mmol/L [facility] Potassium 3.5 3.5 - 5.0 mmol/L [facility] Comment: Please note: ??Patients with WBC >100,000 may have falsely elevated Potassium levels. ??For accurate Potassium quantification in these patients send serum separator tube (gold top) for subsequent determinations. ??Contact the Clinical Chemistry Laboratory if there are any questions. Chloride 94(L) 98 - 107 mmol/L [facility] CO2 31 22 - 31 mmol/L [facility] Anion Gap 8 5 - 15 mmol/L [facility] Calcium 7.7(L) 8.5 - 10.5 mg/dL [facility] Estimated GFR 51(L) >=60 mL/min/1. 73 m?? [facility] Comment: This patient? s estimated glomerular filtration rate (eGFR) is between 51 mL/min/1.73 m2 (patients with less muscle mass) and 60 mL/min/1.73 m2 (patients with more muscle mass) [...] in addition to eGFR. Blood specimen (specimen) 02/08/2021 4:05 AM EDT 02/08/2021 4:16 AM EDT Narrative Resulting Agency Comment Spec In Lab Brittny Woods MD CHEMISTRY ORDERABLES Performing Organization Address [facility] [[email or web address]] Co de Phone Number [facility] [place] [address] * LDL Cholesterol, Direct (02/08/2021 4:05 AM EDT) LDL Chol Direct 17 mg/dL [facility] Comment: Lowest Risk: <100 mg/dL Lower Risk: 100-129 mg/dL Borderline High Risk: 130-159 mg/dL High Risk: 160-189 mg/dL Very High Risk: >bk=849 mg/dL Blood specimen (specimen) 02/08/2021 4:05 AM EDT 02/08/2021 4:16 AM EDT Narrative Resulting Agency Comment Spec In Lab Travis Callahan MD CHEMISTRY ORDERABLES Performing Organization Address [facility] [[email or web address]] Co de Phone Number [facility] [place] [address] * HDL/Cholesterol Profile (02/08/2021 4:05 AM EDT) Chol, Total 85 mg/dL [facility] Comment: Lower Risk: <200 mg/dL Average Risk: 200-239 mg/dL Higher Risk: >ku=256 mg/dL HDL 19 mg/dL [facility] Comment: Males: ?? Higher Risk: <40 mg/dL Females: ?? Higher Risk: <50 mg/dL Chol/HDL Ratio 4.5 ratio [facility] Chol/HDL Interpretation See Note [facility] Comment: Lipid management should be guided by a patient? s ASCVD risk, goals and preferences. ACC/AHA Guidelines recommend high intensity statin if clinical ASCVD or LDL greater than or equal to 190 mg/dL. http://Taketake.com/HKR-MLK-Mmivkkjev Measure LDL if Total Cholesterol minus HDL Cholesterol is greater than 220 mg/dL. Adults aged 40-75 with LDL 70-189 mg/dL should have their 10 year ASCVD risk estimated with the ACC/AHA ASCVD risk fire sprinkler service technician http://tools.acc.org/BYITK-Jdpk-Wkpdtxngj/ Statin should be discussed if risk greater than or equal to 7.5% in non-diabetics. With diabetes, moderate intensity statin is recommended if risk less than 7.5%, high intensity if risk greater than or equal to 7.5%. Annual lipid monitoring on statins is not necessary. Lifestyle modification is a critical component of ASCVD risk reduction. Blood specimen (specimen) 02/08/2021 4:05 AM EDT 02/08/2021 4:16 AM EDT Narrative Resulting Agency Comment Spec In Lab Travis Callahan MD CHEMISTRY ORDERABLES Performing Organization Address [facility] [[email or web address]] Co de Phone Number [facility] [place] [address] * POCT Glucose (02/07/2021 5:24 PM EDT) POC Glucose 185 65 - 199 mg/dL [facility] Comment: Supplemental ranges: <140 mg/dL before meals <180 mg/dL all other times of the day Blood specimen (specimen) 02/07/2021 5:24 PM EDT 02/07/2021 5:24 PM EDT Travis Callahan MD POINT OF CARE TEST O RDERABLES Performing Organization Address City/[facility]/ZIP Co de Phone Number [facility] [place] [address] * CARDIAC CATHETERIZATION (02/07/2021 3:20 PM EDT) Anatomical Region Laterality Modality Other Narrative 02/07/2021 3:34 PM EDT ?[facility] ? Cardiac Catheterization/Intervention Report ? Patient Name: Lion, Toyin Nelson. ? Procedure Date: 02/07/2021 ? A #: [id number] ? Primary Physician: Antonio Cruz ? Case #: [id number] ? File Name: [id number] ? Catheterization Order Number: [id number] ? [facility] ? Final Report [place], [place] ? Patient Name: ? Toyin Lion ? ID#: ?[id number] ? : ?1955 ? Procedure Date: ? February 07, 2021 ? Case #: ? [id number] ? Room: ? 5 ? Case Physician: ? Antonio Cruz M.D. ?Start: ?14:38 ?Fellow: ? Chasity Mabry M.D. ? Admission: ??02/04/2021 ?Katt Hooker D.O. ? Referring Physician: ??Johnny Marie M.D. ? Procedures: ?* Coronary Angiography ?* Left Heart Catheterization ?* Coronary Instantaneous Wave-Free Ratio (iFR) ? History ?Toyin Lion is a 65 year old woman. She has hypertension. The ?patient's smoking status is Never. She has untreated ?hypercholesterolemia. The patient has untreated diabetes. She is status ?post a recent myocardial infarction. The patient has a history of CHF. ?The CHF is NYHA Functional Class III, is newly diagnosed and is ?classified as Systolic. Prior to the initiation of this procedure, the ?patient was designated as ASA Class III. The CSHA clinical frailty scale ?is 5: Mildly Frail. ? Diagnostic Tests: ?Prior Coronary Angiography: ? LV ejection fraction within 6 months is 40%. ?Electrocardiography: ? EKG was assessed by ECG. EKG was Abnormal. EKG showed other ? abnormality. ?Medications Prior to Procedure: ? Aspirin, Beta Татьяна and Statin. ? Indications for Diagnostic Cath: ?The priority of the diagnostic procedure was Urgent. The indication for ?the laboratory development technician visit is ACS greater than 24 hrs. Chest pain symptom ?assessment was: Atypical Angina. ? Technique: ?A 6 SLFr sheath was inserted in the right radial artery utilizing the ?Seldinger technique. The left coronary artery was injected utilizing a ?6Fr JL 3.5 catheter. A 5Fr DONTE RADIAL catheter was used to inject the ?right coronary artery. Left ventricular pressure was performed with a 5Fr ?DONTE RADIAL catheter. 5,000 units of heparin were administered. A total ?of 100cc of Omnipaque were opened, 75cc of Omnipaque were administered ?and 25cc of Omnipaque were wasted. Radiation: Fluoro time was 15.1 ?minutes, dose area product was 82,168 mGYcm2 and air kerma was 1,497 mGY. ?See the case log for additional details. ?The patient received the following medications prior to and during the ?procedure: ? Unfractionated Heparin. ? Hemodynamics: ?Left Heart Pressures ? Resting: ? Syst Diast ? EDP ?a ?v ? m ?Ao 120 ?? 63 ?90 ?LV 133 ? 20 ?Comments: ??LV pullback: ??LV 130, EDP 20. ??Ao 125/63 (92). ? Coronary Angiography: ?Dominance: Right ?Left Main ? There was mild diffuse (<=25% stenosis) disease of the entire vessel ? segment of the left main artery. ?Left Anterior Descending ? There were multiple discrete 95% calcified stenoses of the mid ? segment [...] of the LCX. ?Right Coronary Artery ? There was a 30% single discrete stenosis of the mid segment of the ? right coronary artery (RCA). ??The RCA was large. ??The distal segment ? of the RCA had a single discrete 70% stenosis. ? There was a 90% single discrete stenosis of the ostial segment of ? the right posterior descending branch (RPDA) of the RCA. ??The RPDA ? was large. ? There was a 50% single discrete stenosis of the ostial segment of ? the right artioventricular continuation (ELIER Cont) of the RCA. ??The ? ELIER Cont was large. ? Intravascular Imaging/Physiology: ?Instantaneous wave-free ratio (iFR) was determined across the 70% ?stenosis in the proximal LCX using a 6 Fr EBU 3.0 guiding catheter and a ?OmniWire. ??Wire delivery was successful. ??The IFR across the 70% proximal ?LCX lesion was 0.74. ??This lesion was hemodynamically significant. ? Vascular Access: ?Vascular Access Management: ? Mechanical Compression of the right radial artery access site was ? performed. ? Conclusions: ?* Three vessel coronary artery disease (LAD, LCX and RCA) ?* Elevated left ventricular end diastolic pressure ? Complications/Events: ?The patient had no complications during these procedures. ? Recommendations: ?Based upon the results of this procedure, it was recommended that ?coronary artery bypass surgery be considered. ? Comments: ?SUMMARY AND THERAPEUTIC RECOMMENDATIONS: ?Toyin Lion is recovering from surgery. Her lesions appear severe but ?chronic. She has diabetes and LV dysfunction and 3 vessel disease. We ?will stop today to discuss Plavix candidacy or surgical candidacy with ?Dr. Gilmore's team. ?In the meantime, she will need continued diuresis for her LVEDP of 20-22 ?mmHg. ?I was present during the entire procedure and personally dictated or ?confirmed the above report. ?The attending physician was present for the entire procedure. ?Dr. Antonio Cruz M.D. was present during the moderate sedation intraservice ?time as documented by the sedation nurse. ??Case time = 00:36. ?Dr. Antonio Cruz M.D. performed the coronary angiography and left heart ?catheterization. ? Antonio P Cruz, M.D. ? Electronically Signed by: Antonio Cruz M.D. ? Report Finalized: 02/07/2021 ??15:30 ? Procedure Note Antonio Cruz MD - 02/07/2021 [facility] Cardiac Catheterization/Intervention Report Patient Name: Toyin Lion IAnders Procedure Date: 02/07/2021 A #: [id number] Primary Physician: Antonio Cruz Case #: [id number] File Name: [id number] Catheterization Order Number: [id number] [facility] FinalReport [place], [place] Patient Name: Toyin Lion ID#:[id number] :[id number] Procedure Date: February 07, 2021 Case #: [id number] Room: 5 Case Physician: Antonio Cruz M.D. Start: 14:38 Fellow: Chasity Mabry M.D. Admission:02/04/2021 Katt Hooker D.O. Referring Physician: Johnny Marie M.D. Procedures: * Coronary Angiography * Left Heart Catheterization * Coronary Instantaneous Wave-Free Ratio (iFR) History Toyin Lion is a 65 year old woman. She has hypertension. The patient's smoking status is Never. She has untreated hypercholesterolemia. The patient has untreated diabetes. She isstatus post a recent myocardial infarction. The patient has a history ofCHF. The CHF is NYHA Functional Class III, is newly diagnosed and is classified as Systolic. Prior to the initiation of this procedure,the patient was designated as ASA Class III. The [facility] clinical frailtyscale is 5: Mildly Frail. Diagnostic Tests: Prior Coronary Angiography: LV ejection fraction within 6 months is 40%. Electrocardiography: EKG was assessed by ECG. EKG was Abnormal. EKG showed other abnormality. Medications Prior to Procedure: Aspirin, Beta Татьяна and Statin. Indications for Diagnostic Cath: The priority of the diagnostic procedure was Urgent. The indicationfor the laboratory development technician visit is ACS greater than 24 hrs. Chest pain symptom assessment was: Atypical Angina. Technique: A 6 SLFr sheath was inserted in the right radial artery utilizingthe Seldinger technique. The left coronary artery was injected utilizinga 6Fr JL 3.5 catheter. A 5Fr DONTE RADIAL catheter was used to injectthe right coronary artery. Left ventricular pressure was performed witha 5Fr DONTE RADIAL catheter. 5,000 units of heparin were administered. Atotal of 100cc of Omnipaque were opened, 75cc of Omnipaque wereadministered and 25cc of Omnipaque were wasted. Radiation: Fluoro time was 15.1 minutes, dose area product was 82,168 mGYcm2 and air kerma was 1,497mGY. See the case log for additional details. The patient received the following medications prior to and duringthe procedure: Unfractionated Heparin. Hemodynamics: Left Heart Pressures Resting: Syst Diast EDP a v m Ao 120 63 90 LV 133 20 Comments: LV pullback: LV 130, EDP 20. Ao 125/63 (92). Coronary Angiography: Dominance: Right Left Main There [...] single discrete stenosis of the mid segment ofthe right coronary artery (RCA). The RCA was large. The distalsegment of the RCA had a single discrete 70% stenosis. There was a 90% single discrete stenosis of the ostial segmentof the right posterior descending branch (RPDA) of the RCA. TheRPDA was large. There was a 50% single discrete stenosis of the ostial segmentof the right artioventricular continuation (ELIER Cont) of the RCA.The ELIER Cont was large. Intravascular Imaging/Physiology: Instantaneous wave-free ratio (iFR) was determined across the 70% stenosis in the proximal LCX using a 6 Fr EBU 3.0 guiding catheterand a OmniWire. Wire delivery was successful. The IFR across the 70%proximal LCX lesion was 0.74. This lesion was hemodynamically significant. Vascular Access: Vascular Access Management: Mechanical Compression of the right radial artery access sitewas performed. Conclusions: * Three vessel coronary artery disease (LAD, LCX and RCA) * Elevated left ventricular end diastolic pressure Complications/Events: The patient had no complications during these procedures. Recommendations: Based upon the results of this procedure, it was recommended that coronary artery bypass surgery be considered. Comments: SUMMARY AND THERAPEUTIC RECOMMENDATIONS: Toyin Lion is recovering from surgery. Her lesions appearsevere but chronic. She has diabetes and LV dysfunction and 3 vessel disease.We will stop today to discuss Plavix candidacy or surgical candidacywith Dr. Gilmore's team. In the meantime, she will need continued diuresis for her LVEDP of20-22 mmHg. I was present during the entire procedure and personally dictated or confirmed the above report. The attending physician was present for the entire procedure. Dr. Antonio Cruz M.D. was present during the moderate sedationintraservice time as documented by the sedation nurse. Case time = 00:36. Dr. Antonio Cruz M.D. performed the coronary angiography and leftheart catheterization. Antonio Cruz M.D. Electronically Signed by: Antonio Cruz M.D. Report Finalized: 02/07/2021 15:30 Antonio Cruz MD CARDIAC CATH ORDERAB LES * Magnesium (02/07/2021 12:03 PM EDT) Pathologist [facility] Magnesium 0.75 0.69 - 1.07 mmol/L [facility] Blood specimen (specimen) 02/07/2021 12:03 PM EDT 02/07/2021 12:17 PM EDT Narrative Resulting Agency Comment Spec In Lab Travis Callahan MD CHEMISTRY ORDERABLES [facility] [place] [address] * (ABNORMAL) BMP w/fasting Glucose (02/07/2021 12:03 PM EDT) Glucose Fasting 128(H) 65 - 99 mg/dL [facility] Comment: ?Fasting* Glucose Interpretive [...] of Diabetes Mellitus, Position Statement from the [place] [employer]. ??Diabetes Care, Volume 33, Supplement 1, Oct 2009 BUN 23(H) 8 - 18 mg/dL [facility] Creatinine 1.11 0.70 - 1.20 mg/dL [facility] Sodium 132(L) 135 - 145 mmol/L [facility] Potassium 3.5 3.5 - 5.0 mmol/L [facility] Comment: Please note: ??Patients with WBC >100,000 may have falsely elevated Potassium levels. ??For accurate Potassium quantification in these patients send serum separator tube (gold top) for subsequent determinations. ??Contact the Clinical Chemistry Laboratory if there are any questions. Chloride 93(L) 98 - 107 mmol/L [facility] CO2 30 22 - 31 mmol/L [facility] Anion Gap 9 5 - 15 mmol/L [facility] Calcium 8.1(L) 8.5 - 10.5 mg/dL [facility] Estimated GFR 51(L) >=60 mL/min/1. 73 m?? [facility] Comment: This patient? s estimated glomerular filtration rate (eGFR) is between 51 mL/min/1.73 m2 (patients with less muscle mass) and 60 mL/min/1.73 m2 (patients with more muscle mass) [...] in addition to eGFR. Blood specimen (specimen) 02/07/2021 12:03 PM EDT 02/07/2021 12:17 PM EDT Narrative Resulting Agency Comment Spec In Lab Travis Callahan MD CHEMISTRY ORDERABLES [facility] [place] [address] * POCT Glucose (02/07/2021 11:41 AM EDT) [facility] POC Glucose 123 65 - 199 mg/dL [facility] Comment: Supplemental ranges: <140 mg/dL before meals <180 mg/dL all other times of the day Blood specimen (specimen) 02/07/2021 11:41 AM EDT 02/07/2021 11:41 AM EDT Travis Callahan MD POINT OF CARE TEST O MAUREEN Performing Organization Address [facility] [[email or web address]] Co de Phone Number [facility] [place] [address] * POCT Glucose (02/07/2021 6:32 AM EDT) [facility] POC Glucose 142 65 - 199 mg/dL [facility] Comment: Supplemental ranges: <140 mg/dL before meals <180 mg/dL all other times of the day Blood specimen (specimen) 02/07/2021 6:32 AM EDT 02/07/2021 6:32 AM EDT Travis Callahan MD POINT OF CARE TEST O MAUREEN Performing Organization Address [facility] de Phone Number [facility] [place] [address] * (ABNORMAL) Differential, Automated (02/07/2021 3:49 AM EDT) [facility] Neutrophils % 79.8 % [facility] Neutr Abs (ANC) 11.40(H) 1.70 - 6.10 x10(3)/mc L [facility] Lymphocytes % 10.7 % [facility] Lymphocytes Abs 1.5 0.9 - 3.2 x10(3)/mc L [facility] Monocytes % 7.8 % [facility] Monocyte Abs 1.1(H) 0.3 - 0.9 x10(3)/mc L [facility] Eosinophils % 0.6 % [facility] Eosinophils Abs 0.1 0.0 - 0.4 x10(3)/[facility] Basophils % 0.1 % [facility] Basophils Abs 0.0 0.0 - 0.1 x10(3)/[facility] Immature Gran % 1.00 % [facility] Comment: Immature granulocytes(IG's)percentage and absolute count will include metamyelocytes, myelocytes, and promyelocytes. Blood smears from CBCs yielding IG's will be scanned manually for concordance. If this scan disagrees with the automated IG or if promyelocytes are noted, a manual differential will be performed. Anya Gran Abs 0.15(H) 0.00 - 0.04 x10(3)/[facility] Blood specimen (specimen) 02/07/2021 3:49 AM EDT 02/07/2021 3:59 AM EDT Narrative Resulting Agency Comment Spec In Lab Bibiana Yarbrough MD HEMATOLOGY ORDERABLE S Performing Organization Address City/State/[facility] [[email or web address]] Co de Phone Number [facility] [place] [address] * (ABNORMAL) Hemogram (02/07/2021 3:49 AM EDT) WBC 14.3(H) 4.0 - 9.5 x10(3)/[facility] RBC 3.25(L) 4.00 - 5.21 x10(6)/[facility] Hemoglobin 9.8(L) 11.7 - 15.5 gm/dL [facility] Hematocrit 29.1(L) 35.7 - 45.8 % [facility] MCV 89.5 82.6 - 94.4 fL [facility] MCH 30.2 27.1 - 32.0 pg [facility] MCHC 33.7 31.7 - 35.0 gm/dL [facility] Platelets 232 145 - 357 x10(3)/[facility] RDWSD 45.7 37.0 - 46.0 [facility] RDWCV 13.9 11.5 - 14.1 % [facility] MPV 11.5 7.6 - 12.9 [facility] nRBC % Auto 0.0 % [facility] nRBC Abs Auto 0.000 0.000 - 0.000 x10(3)/[facility] Blood specimen (specimen) 02/07/2021 3:49 AM EDT 02/07/2021 3:59 AM EDT Narrative Resulting Agency Comment Spec In Lab Bibiana Yarbrough MD HEMATOLOGY ORDERABLE S Performing Organization Address City/[facility]/ZIP Co de Phone Number [facility] [place] [address] * Magnesium (02/07/2021 3:49 AM EDT) Magnesium 0.72 0.69 - 1.07 mmol/L [facility] Blood specimen (specimen) 02/07/2021 3:49 AM EDT 02/07/2021 4:00 AM EDT Narrative Resulting Agency Comment Spec In Lab Brittny Woods MD CHEMISTRY ORDERABLES Performing Organization Address [facility]/ZIP Co de Phone Number [facility] [place] [address] * (ABNORMAL) BMP w/fasting Glucose (02/07/2021 3:49 AM EDT) Glucose Fasting 121(H) 65 - 99 mg/dL [facility] Comment: ?Fasting* Glucose Interpretive [...] of Diabetes Mellitus, Position Statement from the [place] [employer]. ??Diabetes Care, Volume 33, Supplement 1, Oct 2009 BUN 24(H) 8 - 18 mg/dL [facility] Creatinine 1.19 0.70 - 1.20 mg/dL [facility] Sodium 132(L) 135 - 145 mmol/L [facility] Potassium 3.3(L) 3.5 - 5.0 mmol/L [facility] Comment: Please note: ??Patients with WBC >100,000 may have falsely elevated Potassium levels. ??For accurate Potassium quantification in these patients send serum separator tube (gold top) for subsequent determinations. ??Contact the Clinical Chemistry Laboratory if there are any questions. Chloride 93(L) 98 - 107 mmol/L [facility] CO2 29 22 - 31 mmol/L [facility] Anion Gap 10 5 - 15 mmol/L [facility] Calcium 8.1(L) 8.5 - 10.5 mg/dL [facility] Estimated GFR 47(L) >=60 mL/min/1. 73 m?? [facility] Comment: This patient? s estimated glomerular filtration rate (eGFR) is between 47 mL/min/1.73 m2 (patients with less muscle mass) and 55 mL/min/1.73 m2 (patients with more muscle mass) [...] in addition to eGFR. Blood specimen (specimen) 02/07/2021 3:49 AM EDT 02/07/2021 4:00 AM EDT Narrative Resulting Agency Comment Spec In Lab Brittny Woods MD CHEMISTRY ORDERABLES Performing Organization Address [facility] de Phone Number [facility] [place] [address] * (ABNORMAL) POCT Glucose (02/06/2021 11:36 PM EDT) POC Glucose 209(H) 65 - 199 mg/dL [facility] Comment: Supplemental ranges: <140 mg/dL before meals <180 mg/dL all other times of the day Blood specimen (specimen) 02/06/2021 11:36 PM EDT 02/06/2021 11:36 PM EDT Travis Callahan MD POINT OF CARE TEST O RDERABLES Performing Organization Address [facility] de Phone Number [facility] [place] [address] * POCT Glucose (02/06/2021 4:15 PM EDT) POC Glucose 156 65 - 199 mg/dL [facility] Comment: Supplemental ranges: <140 mg/dL before meals <180 mg/dL all other times of the day Blood specimen (specimen) 02/06/2021 4:15 PM EDT 02/06/2021 4:15 PM EDT Travis Callahan MD POINT OF CARE TEST O RDERABLES Performing Organization Address [facility] [[email or web address]] Co de Phone Number [facility] [place] [address] * Magnesium (02/06/2021 1:32 PM EDT) Magnesium 0.80 0.69 - 1.07 mmol/L [facility] Blood specimen (specimen) 02/06/2021 1:32 PM EDT 02/06/2021 1:44 PM EDT Narrative Resulting Agency Comment Spec In Lab Travis Callahan MD CHEMISTRY ORDERABLES [facility] [place] [address] * (ABNORMAL) BMP w/fasting Glucose (02/06/2021 1:32 PM EDT) Glucose Fasting 190(H) 65 - 99 mg/dL [facility] Comment: ?Fasting* Glucose Interpretive [...] of Diabetes Mellitus, Position Statement from the [place] [employer]. ??Diabetes Care, Volume 33, Supplement 1, Oct 2009 BUN 24(H) 8 - 18 mg/dL [facility] Creatinine 1.30(H) 0.70 - 1.20 mg/dL [facility] Sodium 132(L) 135 - 145 mmol/L [facility] Potassium 4.1 3.5 - 5.0 mmol/L [facility] Comment: Please note: ??Patients with WBC >100,000 may have falsely elevated Potassium levels. ??For accurate Potassium quantification in these patients send serum separator tube (gold top) for subsequent determinations. ??Contact the Clinical Chemistry Laboratory if there are any questions. Chloride 95(L) 98 - 107 mmol/L [facility] CO2 27 22 - 31 mmol/L [facility] Anion Gap 10 5 - 15 mmol/L [facility] Calcium 8.0(L) 8.5 - 10.5 mg/dL [facility] Estimated GFR 42(L) >=60 mL/min/1. 73 m?? [facility] Comment: This patient? s estimated glomerular filtration rate (eGFR) is between 42 mL/min/1.73 m2 (patients with less muscle mass) and 49 mL/min/1.73 m2 (patients with more muscle mass) [...] in addition to eGFR. Blood specimen (specimen) 02/06/2021 1:32 PM EDT 02/06/2021 1:44 PM EDT Narrative Resulting Agency Comment Spec In Lab Travis Callahan MD CHEMISTRY ORDERABLES Performing Organization Address [facility] [[email or web address]] Co de Phone Number [facility] [place] [address] * POCT Glucose (02/06/2021 11:15 AM EDT) POC Glucose 185 65 - 199 mg/dL [facility] Comment: Supplemental ranges: <140 mg/dL before meals <180 mg/dL all other times of the day Blood specimen (specimen) 02/06/2021 11:15 AM EDT 02/06/2021 11:15 AM EDT Travis Callahan MD POINT OF CARE TEST O RDERABLES Performing Organization Address [facility]/ZIP Co de Phone Number [facility] [place] [address] * POCT Glucose (02/06/2021 7:20 AM EDT) POC Glucose 166 65 - 199 mg/dL [facility] Comment: Supplemental ranges: <140 mg/dL before meals <180 mg/dL all other times of the day Blood specimen (specimen) 02/06/2021 7:20 AM EDT 02/06/2021 7:20 AM EDT Travis Callahan MD POINT OF CARE TEST O RDERABLES [facility] [place] [address] * (ABNORMAL) Differential, Automated (02/06/2021 1:55 AM EDT) Neutrophils % 80.9 % [facility] Neutr Abs (ANC) 11.64(H) 1.70 - 6.10 x10(3)/[facility] Lymphocytes % 10.4 % [facility] Lymphocytes Abs 1.5 0.9 - 3.2 x10(3)/[facility] Monocytes % 7.3 % [facility] Monocyte Abs 1.0(H) 0.3 - 0.9 x10(3)/[facility] Eosinophils % 0.4 % [facility] Eosinophils Abs 0.1 0.0 - 0.4 x10(3)/[facility] Basophils % 0.2 % [facility] Basophils Abs 0.0 0.0 - 0.1 x10(3)/[facility] Immature Gran % 0.80 % [facility] Comment: Immature granulocytes(IG's)percentage and absolute count will include metamyelocytes, myelocytes, and promyelocytes. Blood smears from CBCs yielding IG's will be scanned manually for concordance. If this scan disagrees with the automated IG or if promyelocytes are noted, a manual differential will be performed. Anya Gran Abs 0.12(H) 0.00 - 0.04 x10(3)/[facility] Blood specimen (specimen) 02/06/2021 1:55 AM EDT 02/06/2021 2:07 AM EDT Narrative Resulting Agency Comment Spec In Lab Bibiana Yarbrough MD HEMATOLOGY ORDERABLE S [facility] [place] [address] * (ABNORMAL) Hemogram (02/06/2021 1:55 AM EDT) [facility] WBC 14.4(H) 4.0 - 9.5 x10(3)/[facility] RBC 3.03(L) 4.00 - 5.21 x10(6)/[facility] Hemoglobin 9.2(L) 11.7 - 15.5 gm/dL [facility] Hematocrit 27.2(L) 35.7 - 45.8 % [facility] MCV 89.8 82.6 - 94.4 [facility] MCH 30.4 27.1 - 32.0 pg [facility] MCHC 33.8 31.7 - 35.0 gm/dL [facility] Platelets 232 145 - 357 x10(3)/[facility] RDWSD 46.2(H) 37.0 - 46.0 [facility] RDWCV 14.2(H) 11.5 - 14.1 % [facility] MPV 11.6 7.6 - 12.9 [facility] nRBC % Auto 0.0 % [facility] nRBC Abs Auto 0.000 0.000 - 0.000 x10(3)/[facility] Blood specimen (specimen) 02/06/2021 1:55 AM EDT 02/06/2021 2:07 AM EDT Narrative Resulting Agency Comment Spec In Lab Bibiana Yarbrough MD HEMATOLOGY ORDERABLE S [facility] [place] [address] * (ABNORMAL) Magnesium (02/06/2021 1:55 AM EDT) [facility] Magnesium 0.68(L) 0.69 - 1.07 mmol/L [facility] Blood specimen (specimen) 02/06/2021 1:55 AM EDT 02/06/2021 2:07 AM EDT Narrative Resulting Agency Comment Spec In Lab Brittny Woods MD CHEMISTRY ORDERABLES [facility] [place] [address] * (ABNORMAL) BMP w/fasting Glucose (02/06/2021 1:55 AM EDT) Glucose Fasting 121(H) 65 - 99 mg/dL [facility] Comment: ?Fasting* Glucose Interpretive [...] of Diabetes Mellitus, Position Statement from the [place] [employer]. ??Diabetes Care, Volume 33, Supplement 1, Oct 2009 BUN 24(H) 8 - 18 mg/dL [facility] Creatinine 1.27(H) 0.70 - 1.20 mg/dL [facility] Sodium 134(L) 135 - 145 mmol/L [facility] Potassium 3.7 3.5 - 5.0 mmol/L [facility] Comment: Please note: ??Patients with WBC >100,000 may have falsely elevated Potassium levels. ??For accurate Potassium quantification in these patients send serum separator tube (gold top) for subsequent determinations. ??Contact the Clinical Chemistry Laboratory if there are any questions. Chloride 96(L) 98 - 107 mmol/L [facility] CO2 27 22 - 31 mmol/L [facility] Anion Gap 11 5 - 15 mmol/L [facility] Calcium 8.0(L) 8.5 - 10.5 mg/dL [facility] Estimated GFR 44(L) >=60 mL/min/1. 73 m?? [facility] Comment: This patient? s [...] in addition to eGFR. Blood specimen (specimen) 02/06/2021 1:55 AM EDT 02/06/2021 2:07 AM EDT Narrative Resulting Agency Comment Spec In Lab Brittny Woods MD CHEMISTRY ORDERABLES Performing Organization Address City/[facility]/ZIP Co de Phone Number [facility] [place] [address] * POCT Glucose (02/05/2021 4:10 PM EDT) [facility] POC Glucose 193 65 - 199 mg/dL [facility] Comment: Supplemental ranges: <140 mg/dL before meals <180 mg/dL all other times of the day Blood specimen (specimen) 02/05/2021 4:10 PM EDT 02/05/2021 4:10 PM EDT Travis Callahan MD POINT OF CARE TEST O RDERABLES [facility] [place] [address] * ECHO COMPLETE W CONTRAST (02/05/2021 3:46 PM EDT) EF 40 [facility] SYSTEM Anatomical Region Laterality Modality Other 02/05/2021 Narrative 02/05/2021 4:13 PM EDT Procedure: ?Transthoracic Echocardiogram Patient: ?AMISHA CASTILLO I ? (Age): 1955(65y) Med Rec#: ? [id number] ?Sex: ?F ? Site Loc: ? [facility] ?Ht / Wt: ??160(cm)/94(kg) Pt. Loc: ?Adult Floor ? BSA: ?1.96 Study Date: ?? 02/05/2021 ?Pt. Type: Inpatient Tape: ? Referring: KATHY Referring: Brittny Woods Reading: Bryan Birmingham ([id number]) Waiter/Waitress Cafeteria: Deysi Moore Diagnosis: *Chronic diastolic (congestive) heart failure (I50.32) BP: ? 133/63 SUMMARY: 1. The left ventricular chamber size is normal. Left ventricular wall thickness is normal. Global left ventricular systolic function is moderately reduced. ??Ejection fraction is estimated to be 40%. There [...] valve stenosis. The mean trans-valvular gradient across ??the aortic valve is 13 mmHg. ??DOI= .46, LVSI= 30ml/m2. The calculated aortic valve [...] study in our system available for comparison. Findings ? : Left Ventricle: ? The left ventricular chamber size is normal. ?Left ventricular wall thickness is normal. ?There is no evidence of LVOT obstruction. ?No ventricular septal defect is visualized. ?Global left ventricular systolic function is moderately reduced. Ejection fraction is estimated to be 40%. ?There are left ventricular segmental wall motion abnormalities present, as shown in the diagram below. ?Left ventricular diastolic function is abnormal. ?The left ventricular diastolic filling pattern is consistent with impaired LV relaxation. ?Doppler assessment is consistent with elevated left sided filling pressure. ?The ??mid anterior, mid anterolateral, mid inferior, and ??mid inferoseptal wall segments are hypokinetic (score 2). ?The ??mid anteroseptal, apical septal, apical anterior, apical lateral, and ??apical inferior wall segments are akinetic (score 3). ?Overall wallmotion score index is ??1.88 Left Atrium: ? The left atrium is moderately dilated. ?There is no patent foramen ovale visualized. Right Ventricle: ? The right ventricle is normal in size. ?Right ventricular global systolic function is mildly reduced. ?The estimated pulmonary artery systolic pressure is 34 mmHg. ?The estimated right atrial pressure is 3 mmHg. Right Atrium: ? The right atrium appears normal. Aortic Valve: ? The aortic valve is tricuspid. ?The aortic valve leaflets are mildly thickened. ?Mild aortic leaflet calcification is visualized. ?Systolic excursion of the aortic valve cusps is reduced. ?The peak instantaneous trans-valvular gradient across ??the aortic valve is 22 mmHg. acquired from apical views. ?The mean trans-valvular gradient across ??the aortic valve is 13 mmHg. DOI= .46, LVSI= 30ml/m2 ?The calculated aortic valve area is 1.5 cm2. ?There is mild aortic valve stenosis. ?There is no evidence of aortic regurgitation. Mitral Valve: ? The mitral valve leaflets are mildly thickened. ?Mild mitral leaflet calcification is visualized. ?There is posterior mitral annular calcification. ?The mean gradient across the mitral valve is 12 mmHg. HR= 108bpm ?The mitral valve area is calculated at 1.4 cm2. by continuity equation. ?There is moderate mitral stenosis present. ?There is mild (1+/4+) mitral regurgitation present. Tricuspid Valve: ? The tricuspid valve appears normal in structure and function. ?There is trace tricuspid regurgitation present. Pulmonic Valve: ? The pulmonic valve appears normal in structure and function. ?There is trace pulmonic regurgitation present. Pericardium: ? The pericardium appears normal and there is no evidence of a pericardial effusion. Aorta: ? The aortic root is normal in size. ?The ascending aorta is normal in size. Pulmonary Artery: ? The main pulmonary artery appears normal. Venous: ? The inferior vena cava appears normal in size. ?There is a greater than 50% respiratory change in the inferior vena cava dimension. Misc: ? Two-dimensional echo, spectral Doppler and color Doppler performed. ?Optison contrast (one 3 ml vial) was used to enhance endocardial definition. Excess contrast was discarded. Chambers 2D ?Value ?Units (Range) ? IVSd (2D) ? 0.99 ? cm ? LVPWd (2D) ?0.98 ? cm ? IVS:LVPW ratio (2D) 1.01 ? ratio ? RWT (2D) ?0.46 ? ratio ? RWT PW (2D) ? 0.46 ? ratio ? LVIDd (2D) ?4.29 ? cm ? LVIDs (2D) ?2.78 ? cm ? LVIDd (2D) index ?2.19 ? cm/m2 ? LVIDs (2D) index ?1.42 ? cm/m2 ? LV FS (2D) ?35.15 ?% ? EF Teichholz (2D) ?? 64.78 ?% ? Ao root diameter (2D3.16 ? cm (2.1 - 3.6) ? Ascending Ao ?3.07 ? cm (2 - 3.5) ? Volumes/Mass ?Value ?Units (Range) ? LA Area 4 CH ?23.8 ? cm2 (<21) ? LA ESV BP (A/L) inde47.42 ?ml/m2 ? RA AREA 4CH ? 17.1 ? cm2 ? LV ESV SP 4CH (MOD) 54.24 ?ml ? LV ESV SP 2CH (MOD) 49.67 ?ml ? LV EDV BP ? 93.81 ?ml ? LV ESV BP ? 51.97 ?ml ? LV EDV BP index ? 47.79 ?ml/m2 ? LV ESV BP index ? 26.48 ?ml/m2 ? BP EF (MOD) ? 44.6 ? % ? LV mass (2D) ?139.14 ? g ? LV mass (2D) index ??70.88 ?g/m2 ? Diastolic/Systolic Function ?Value ?Units (Range) ? MV E-wave Vmax ?1.74 ? m/sec ? MV deceleration upru365.78 ? msec ? MV A-wave Vmax ?1.87 ? m/sec ? MV E:A ratio ?0.93 ? ratio ? LV septal e' Vmax ?? 0.06 ? m/sec ? LV lateral e' Vmax ??0.08 ? m/sec ? LV average e' Vmax ??0.07 ? m/sec ? LV E:e' septal ratio28.97 ?ratio ? LV E:e' lateral rati21.73 ?ratio ? LV average E:e' rati24.83 ?ratio ? Aortic Valve ?Value ?Units (Range) ? AV Vmax ? 2.36 ? m/sec ? AV VTI ?41.34 ?cm ? AV peak gradient ?22 ? mmHg ? AV mean gradient ?13 ? mmHg ? LVOT diameter ? 1.98 ? cm ? LVOT Vmax ? 1.17 ? m/sec ? LVOT VTI ?18.92 ?cm ? LVOT peak gradient ??5.47 ? mmHg ? LVOT mean gradient ??3.33 ? mmHg ? DOI (VTI) ? 0.46 ? ratio ? DOI (Vmax) ?0.5 ?ratio ? SV LVOT ? 58.52 ?ml ? CO LVOT ? 6.33 ? l/min ? Cardiac index ? 3.22 ? l/min/m2 ? BRIAN (continuity Vmax1.5 ?cm2 ? BRIAN (continuity Vmax0.78 ? cm2/m2 ? BRIAN (continuity VTI)1.42 ? cm ? BRIAN (continuity VTI)0.72 ? cm2/m2 ? Mitral Valve ?Value ?Units (Range) ? MV Vmax ? 2.36 ? m/sec ? MV VTI ?41.51 ?cm ? MV peak gradient ?22.3 ? mmHg ? MV mean gradient ?12 ? mmHg ? MV PHT ?46 ? msec ? MVA (PHT) ? 1.4 ?cm2 ? MVA (continuity VTI)1.41 ? cm2 ? Tricuspid Valve ?Value ?Units (Range) ? TR Vmax ? 2.8 ?m/sec ? TR peak gradient ?31.43 ?mmHg ? RAP ? 3 ?mmHg ? RVSP ?34 ? mmHg ? Wall Motion: Segment Name ?Rest ? Base-Anteroseptal ?? Normal ? Base-Anterior ? Normal ? Base-Anterolateral ??Normal ? Base-Posterolateral Normal ? Base-Inferior ? Normal ? Base-Inferoseptal ?? Normal ? Mid-Anteroseptal ?Akinetic ? Mid-Anterior ?Hypokinetic ? Mid-Anterolateral ?? Hypokinetic ? Mid-Posterolateral ??Normal ? Mid-Inferior ?Hypokinetic ? Mid-Inferoseptal ?Hypokinetic ? [place]-Septal ? Akinetic ? [place]-Anterior ? Akinetic ? [place]-Lateral ?Akinetic ? [place]-Inferior ? Akinetic ? [place]-Tip ?Akinetic ? This report has been electronically signed by: Bryan Birmingham MD ? 02/05/2021 16:12:13 Images reviewed and interpretation verified [facility] Cardiac Ultrasound Laboratory Procedure Note Bryan Birmingham MD - 02/05/2021 Procedure: Transthoracic Echocardiogram Patient: AMISHA Nelson DOB(Age): 1955(65y) Med Rec#: [id number] Sex: F Site Loc: [facility] Ht / Wt: 160(cm)/94(kg) Pt. Loc: Adult Floor BSA: 1.96 Study Date: 02/05/2021 Pt. Type: Inpatient Tape: Referring: STRANATHANCHRISTOPHER Referring: Brittny Woods Reading: Bryan Birmingham ([id number]) Waiter/Waitress Cafeteria: Deysi Moore Diagnosis: *Chronic diastolic (congestive) heart failure (I50.32) BP: 133/63 SUMMARY: 1. The left ventricular chamber size [...] study in our system available for comparison. Findings : Left Ventricle: The left ventricular chamber size is normal. Left ventricular wall thickness is normal. There is no evidence of LVOT obstruction. No ventricular septal defect is visualized. Global left ventricular systolic function is moderately reduced. Ejection fraction is estimated to be 40%. There are left ventricular segmental wall motion abnormalities present, as shown in the diagram below. Left ventricular diastolic function is abnormal. The left ventricular diastolic filling pattern is consistent with impaired LV relaxation. Doppler assessment is consistent with elevated left sided filling pressure. The mid anterior, mid anterolateral, mid inferior, and mid inferoseptal wall segments are hypokinetic (score 2). The mid anteroseptal, apical septal, apical anterior, apical lateral, and apical inferior wall segments are akinetic (score 3). Overall wallmotion score index is 1.88 Left Atrium: The left atrium is moderately dilated. There is no patent foramen ovale visualized. Right Ventricle: The right ventricle is normal in size. Right ventricular global systolic function is mildly reduced. The estimated pulmonary artery systolic pressure is 34 mmHg. The estimated right atrial pressure is 3 mmHg. Right Atrium: The right atrium appears normal. Aortic Valve: The aortic valve is tricuspid. The aortic valve leaflets are mildly thickened. Mild aortic leaflet calcification is visualized. Systolic excursion of the aortic valve cusps is reduced. The peak instantaneous trans-valvular gradient across the aortic valve is 22 mmHg. acquired from apical views. The mean trans-valvular gradient across the aortic valve is 13 mmHg. DOI= .46, LVSI= 30ml/m2 The calculated aortic valve area is 1.5 cm2. There is mild aortic valve stenosis. There is no evidence of aortic regurgitation. Mitral Valve: The mitral valve leaflets are mildly thickened. Mild mitral leaflet calcification is visualized. There is posterior mitral annular calcification. The mean gradient across the mitral valve is 12 mmHg. HR= 108bpm The mitral valve area is calculated at 1.4 cm2. by continuity equation. There is moderate mitral stenosis present. There is mild (1+/4+) mitral regurgitation present. Tricuspid Valve: The tricuspid valve appears normal in structure and function. There is trace tricuspid regurgitation present. Pulmonic Valve: The pulmonic valve appears normal in structure and function. There is trace pulmonic regurgitation present. Pericardium: The pericardium appears normal and there is no evidence of a pericardial effusion. Aorta: The aortic root is normal in size. The ascending aorta is normal in size. Pulmonary Artery: The main pulmonary artery appears normal. Venous: The inferior vena cava appears normal in size. There is a greater than 50% respiratory change in the inferior vena cava dimension. Misc: Two-dimensional echo, spectral Doppler and color Doppler performed. Optison contrast (one 3 ml vial) was used to enhance endocardial definition. Excess contrast was discarded. Chambers 2D Value Units (Range) IVSd (2D) 0.99 cm LVPWd (2D) 0.98 cm IVS:LVPW ratio (2D) 1.01 ratio RWT (2D) 0.46 ratio RWT PW (2D) 0.46 ratio LVIDd (2D) 4.29 cm LVIDs (2D) 2.78 cm LVIDd (2D) index 2.19 cm/m2 LVIDs (2D) index 1.42 cm/m2 LV FS (2D) 35.15 % EF Teichholz (2D) 64.78 % Ao root diameter (2D3.16 cm (2.1 - 3.6) Ascending Ao 3.07 cm (2 - 3.5) Volumes/Mass Value Units (Range) LA Area 4 CH 23.8 cm2 (<21) LA ESV BP (A/L) inde47.42 ml/m2 RA AREA 4CH 17.1 cm2 LV ESV SP 4CH (MOD) 54.24 ml LV ESV SP 2CH (MOD) 49.67 ml LV EDV BP 93.81 ml LV ESV BP 51.97 ml LV EDV BP index 47.79 ml/m2 LV ESV BP index 26.48 ml/m2 BP EF (MOD) 44.6 % LV mass (2D) 139.14 g LV mass (2D) index 70.88 g/m2 Diastolic/Systolic Function Value Units (Range) MV E-wave Vmax 1.74 m/sec MV deceleration neey748.78 msec MV A-wave Vmax 1.87 m/sec MV E:A ratio 0.93 ratio LV septal e' Vmax 0.06 m/sec LV lateral e' Vmax 0.08 m/sec LV average e' Vmax 0.07 m/sec LV E:e' septal ratio28.97 ratio LV E:e' lateral rati21.73 ratio LV average E:e' rati24.83 ratio Aortic Valve Value Units (Range) AV Vmax 2.36 m/sec AV VTI 41.34 cm AV peak gradient 22 mmHg AV mean gradient 13 mmHg LVOT diameter 1.98 cm LVOT Vmax 1.17 m/sec LVOT VTI 18.92 cm LVOT peak gradient 5.47 mmHg LVOT mean gradient 3.33 mmHg DOI (VTI) 0.46 ratio DOI (Vmax) 0.5 ratio SV LVOT 58.52 ml CO LVOT 6.33 l/min Cardiac index 3.22 l/min/m2 BRIAN (continuity Vmax1.5 cm2 BRIAN (continuity Vmax0.78 cm2/m2 BRIAN (continuity VTI)1.42 cm BRIAN (continuity VTI)0.72 cm2/m2 Mitral Valve Value Units (Range) MV Vmax 2.36 m/sec MV VTI 41.51 cm MV peak gradient 22.3 mmHg MV mean gradient 12 mmHg MV PHT 46 msec MVA (PHT) 1.4 cm2 MVA (continuity VTI)1.41 cm2 Tricuspid Valve Value Units (Range) TR Vmax 2.8 m/sec TR peak gradient 31.43 mmHg RAP 3 mmHg RVSP 34 mmHg Wall Motion: Segment Name Rest Base-Anteroseptal Normal Base-Anterior Normal Base-Anterolateral Normal Base-Posterolateral Normal Base-Inferior Normal Base-Inferoseptal Normal Mid-Anteroseptal Akinetic Mid-Anterior Hypokinetic Mid-Anterolateral Hypokinetic Mid-Posterolateral Normal Mid-Inferior Hypokinetic Mid-Inferoseptal Hypokinetic Durham-Septal Akinetic Durham-Anterior Akinetic Durham-Lateral Akinetic Durham-Inferior Akinetic Durham-Tip Akinetic This report has been electronically signed by: Bryan Birmingham MD 02/05/2021 16:12:13 Images reviewed and interpretation verified [facility] Cardiac Ul[facility]ound [facility] Brittny Woods MD ECHO ORDERABLES * (ABNORMAL) Magnesium (02/05/2021 3:10 PM EDT) Magnesium 0.61(L) 0.69 - 1.07 mmol/L [facility] Blood specimen (specimen) 02/05/2021 3:10 PM EDT 02/05/2021 3:30 PM EDT Narrative Resulting Agency Comment Spec In Lab Travis Callahan MD CHEMISTRY ORDERABLES [facility] [place] [address] * (ABNORMAL) BMP w/fasting Glucose (02/05/2021 3:10 PM EDT) Glucose Fasting 175(H) 65 - 99 mg/dL [facility] Comment: ?Fasting* Glucose Interpretive [...] of Diabetes Mellitus, Position Statement from the [place] [employer]. ??Diabetes Care, Volume 33, Supplement 1, Oct 2009 BUN 23(H) 8 - 18 mg/dL [facility] Creatinine 1.28(H) 0.70 - 1.20 mg/dL [facility] Sodium 133(L) 135 - 145 mmol/L [facility] Potassium 3.6 3.5 - 5.0 mmol/L [facility] Comment: Please note: ??Patients with WBC >100,000 may have falsely elevated Potassium levels. ??For accurate Potassium quantification in these patients send serum separator tube (gold top) for subsequent determinations. ??Contact the Clinical Chemistry Laboratory if there are any questions. Chloride 94(L) 98 - 107 mmol/L [facility] CO2 26 22 - 31 mmol/L [facility] Anion Gap 13 5 - 15 mmol/L [facility] Calcium 8.4(L) 8.5 - 10.5 mg/dL [facility] Estimated GFR 43(L) >=60 mL/min/1. 73 m?? [facility] Comment: This patient? s [...] in addition to eGFR. Blood specimen (specimen) 02/05/2021 3:10 PM EDT 02/05/2021 3:30 PM EDT Narrative Resulting Agency Comment Spec In Lab Travis Callahan MD CHEMISTRY ORDERABLES [facility] [place] [address] * POCT Glucose (02/05/2021 11:35 AM EDT) Pathologist [facility] POC Glucose 122 65 - 199 mg/dL [facility] Comment: Supplemental ranges: <140 mg/dL before meals <180 mg/dL all other times of the day Blood specimen (specimen) 02/05/2021 11:35 AM EDT 02/05/2021 11:35 AM EDT Travis Callahan MD POINT OF CARE TEST O MAUREEN Performing Organization Address [facility] [[email or web address]] Co de Phone Number [facility] [place] [address] * POCT Glucose (02/05/2021 7:22 AM EDT) [facility] POC Glucose 189 65 - 199 mg/dL [facility] Comment: Supplemental ranges: <140 mg/dL before meals <180 mg/dL all other times of the day Blood specimen (specimen) 02/05/2021 7:22 AM EDT 02/05/2021 7:22 AM EDT Travis Callahan MD POINT OF CARE TEST O MAUREEN Performing Organization Address [facility] de Phone Number [facility] [place] [address] * (ABNORMAL) Differential, Automated (02/05/2021 6:10 AM EDT) Pathologist [facility] Neutrophils % 87.8 % [facility] Neutr Abs (ANC) 16.92(H) 1.70 - 6.10 x10(3)/mc L [facility] Lymphocytes % 5.3 % [facility] Lymphocytes Abs 1.0 0.9 - 3.2 x10(3)/mc L [facility] Monocytes % 5.4 % [facility] Monocyte Abs 1.0(H) 0.3 - 0.9 x10(3)/mc L [facility] Eosinophils % 0.3 % [facility] Eosinophils Abs 0.1 0.0 - 0.4 x10(3)/[facility] Basophils % 0.2 % [facility] Basophils Abs 0.0 0.0 - 0.1 x10(3)/[facility] Immature Gran % 1.00 % [facility] Comment: Immature granulocytes(IG's)percentage and absolute count will include metamyelocytes, myelocytes, and promyelocytes. Blood smears from CBCs yielding IG's will be scanned manually for concordance. If this scan disagrees with the automated IG or if promyelocytes are noted, a manual differential will be performed. Anya Gran Abs 0.19(H) 0.00 - 0.04 x10(3)/[facility] Blood specimen (specimen) 02/05/2021 6:10 AM EDT 02/05/2021 6:24 AM EDT Narrative Resulting Agency Comment Spec In Lab Bibiana Yarbrough MD HEMATOLOGY ORDERABLE S [facility] [place] [address] * (ABNORMAL) Hemogram (02/05/2021 6:10 AM EDT) WBC 19.3(H) 4.0 - 9.5 x10(3)/[facility] RBC 3.40(L) 4.00 - 5.21 x10(6)/[facility] Hemoglobin 10.3(L) 11.7 - 15.5 gm/dL [facility] Hematocrit 30.6(L) 35.7 - 45.8 % [facility] MCV 90.0 82.6 - 94.4 fL [facility] MCH 30.3 27.1 - 32.0 pg [facility] MCHC 33.7 31.7 - 35.0 gm/dL [facility] Platelets 279 145 - 357 x10(3)/[facility] RDWSD 47.8(H) 37.0 - 46.0 fL [facility] RDWCV 14.6(H) 11.5 - 14.1 % [facility] MPV 11.8 7.6 - 12.9 [facility]ORY nRBC % Auto 0.0 % [facility] nRBC Abs Auto 0.000 0.000 - 0.000 x10(3)/mcL [facility] Blood specimen (specimen) 02/05/2021 6:10 AM EDT 02/05/2021 6:24 AM EDT Narrative Resulting Agency Comment Spec In Lab Bibiana Yarbrough MD HEMATOLOGY ORDERABLE S [facility] [place] [address] * (ABNORMAL) Troponin (02/05/2021 6:10 AM EDT) Troponin-T 0.03(H) 0.00 - 0.00 ng/mL [facility] Comment: The 99th percentile for Troponin T is less than 0.01 ng/mL, any detectable cTnT concentration using this assay should be considered elevated. According to the third universal definition of myocardial infarction the following criteria with a clinical presentation consistent with acute myocardial ischemia meets the diagnosis for a myocardial infarction ([place]). Detection of a rise and/or fall of cTnT, with at least one value greater than the 99th percentile (> or = 0.01) and with at least one of the following ?? Symptoms of ischemia ?? New or presumed new significant [id number] wave (ST-T) changes or new left bundle [...] additional sample may be indicated. Reference: Third [place] Definition of Myocardial Infarction. Journal of the [place] College [employer] 2012;60:1581-98 Blood specimen (specimen) 02/05/2021 6:10 AM EDT 02/05/2021 6:25 AM EDT Narrative Resulting Agency Comment Spec In Lab Brittny Woods MD CHEMISTRY ORDERABLES [facility] [place] [address] * (ABNORMAL) BMP w/fasting Glucose (02/05/2021 6:10 AM EDT) Glucose Fasting 146(H) 65 - 99 mg/dL [facility] Comment: ?Fasting* Glucose Interpretive [...] of Diabetes Mellitus, Position Statement from the [place] Diabetes [employer]. ??Diabetes Care, Volume 33, Supplement 1, Oct 2009 BUN 23(H) 8 - 18 mg/dL [facility] Creatinine 1.21(H) 0.70 - 1.20 mg/dL [facility] Sodium 135 135 - 145 mmol/L [facility] Potassium 4.0 3.5 - 5.0 mmol/L [facility] Comment: Please note: ??Patients with WBC >100,000 may have falsely elevated Potassium levels. ??For accurate Potassium quantification in these patients send serum separator tube (gold top) for subsequent determinations. ??Contact the Clinical Chemistry Laboratory if there are any questions. Chloride 99 98 - 107 mmol/L [facility] CO2 25 22 - 31 mmol/L [facility] Anion Gap 11 5 - 15 mmol/L [facility] Calcium 8.5 8.5 - 10.5 mg/dL [facility] Estimated GFR 46(L) >=60 mL/min/1. 73 m?? [facility] Comment: This patient? s estimated glomerular filtration rate (eGFR) is between 46 mL/min/1.73 m2 (patients with less muscle mass) and 54 mL/min/1.73 m2 (patients with more muscle mass) [...] in addition to eGFR. Blood specimen (specimen) 02/05/2021 6:10 AM EDT 02/05/2021 6:24 AM EDT Narrative Resulting Agency Comment Spec In Lab Brittny Woods MD CHEMISTRY ORDERABLES [facility] [place] [address] * Blood culture (02/04/2021 11:55 PM EDT) Blood Culture No growth at 5 days. [facility] Blood specimen (specimen) 02/04/2021 11:55 PM EDT 02/05/2021 2:20 AM EDT Comment:RIGHT Narrative Resulting Agency Comment Spec In Lab Theodore Watson APRN MICROBIOLOGY - BLOOD ORDERABLES [facility] [place] [address] * Blood culture (02/04/2021 11:50 PM EDT) Blood Culture No growth at 5 days. [facility] Blood specimen (specimen) 02/04/2021 11:50 PM EDT 02/05/2021 2:19 AM EDT Comment:LEFT Narrative Resulting Agency Comment Spec In Lab Theodore Watson APRN MICROBIOLOGY - BLOOD ORDERABLES [facility] [place] [address] * COVID-19 PCR (02/04/2021 10:28 PM EDT) SARS-CoV-2 RNA PCR Not Detected Not Detected [facility] Comment: This result should be interpreted [...] using the [employer] COVID-19 Direct Assay by [employer] as authorized by the FDA issued Emergency [...] Department of Pathology and Laboratory Medicine at [facility], certified under the Clinical Laboratory Improvement [...] fact sheets at the following FDA website: https://www.fda.gov/medical-devices/vdsupeikjga-iwucepv-2521-lbgan-58-tyofpmnjt- use-a ceatflekijnfy-fujcghi-wwqthlv/zefiv-sjylbykiibr-rllp SARS-CoV-2 Source [employer] [facility] Nasopharyngeal swab (specimen) 02/04/2021 10:28 PM EDT 02/04/2021 10:58 PM EDT Comment:Symptoms->Surveillan ce Narrative Resulting Agency Comment Spec In Lab Theodore Watson APRN MICROBIOLOGY - GENER AL ORDERABLES Performing Organization Address [facility]/ZIP Co de Phone Number [facility] [place] [address] * Urine Hold (02/04/2021 10:26 PM EDT) Urine Hold Sample in lab. [facility] Urine specimen (specimen) Urine / Unknown 02/04/2021 10:26 PM EDT 02/04/2021 10:41 PM EDT Theodore Watson APRN URINE ORDERABLES Performing Organization Address [facility] [[email or web address]] Co de Phone Number [facility] [place] [address] * (ABNORMAL) _Urinalysis with microscopic (02/04/2021 10:26 PM EDT) Glucose UA Negative Negative mg/dL [facility] Protein UA Negative Negative mg/dL [facility] Bilirubin UA Negative Negative mg/dL [facility] Comment: Clinical correlation required for positive Urine Bilirubin results as false positive may occur with some drugs and drug related products. If a false positive is suspected a serum total bilirubin should be considered if clinically indicated. Urobilinogen UA Normal Normal mg/dL [facility] pH UA 6.0 5.0 - 8.0 [facility] Blood UA Small(A) Negative mg/dL [facility] Ketones UA Negative Negative mg/dL [facility] Nitrite UA Negative Negative [facility] Leukocytes UA Negative Negative mcL [facility] Appearance UA Clear Clear [facility] Spec [employer] UA 1.012 1.006 - 1.030 [facility] Color UA Yellow Yellow [facility] RBC UA 4 0 - 4 /HPF [facility] WBC UA 0 0 - 5 /HPF [facility] Squam Epith UA 1 <=4 /HPF [facility] Hyaline Cast UA 5(H) 0 - 2 /LPF [facility] Urine specimen (specimen) 02/04/2021 10:26 PM EDT 02/04/2021 10:40 PM EDT Narrative Resulting Agency Comment Spec In Lab Theodore Watson APRN URINE ORDERABLES [facility] [place] [address] * (ABNORMAL) pro-Brain Natriuretic Peptide (02/04/2021 10:00 PM EDT) ProBNP >35,000(H) <=124 pg/mL [facility] Blood specimen (specimen) Venous Draw / Unknown 02/04/2021 10:00 PM EDT 02/04/2021 10:08 PM EDT Narrative Resulting Agency Comment Spec In Lab Bibiana Yarbrough MD CHEMISTRY ORDERABLES [facility] [place] [address] * Type and Screen Validity (02/04/2021 10:00 PM EDT) T&S only valid at [facility] Comment:This Type and Screen result is only valid at the [facility] Blood specimen (specimen) 02/04/2021 10:00 PM EDT 02/04/2021 10:08 PM EDT Narrative Resulting Agency Comment Spec In Lab Theodore Watson KURTIS BLOOD BANK LAB ORDER MÓNICA [facility] [place] [address] * (ABNORMAL) Troponin (02/04/2021 10:00 PM EDT) [facility] Troponin-T 0.03(H) 0.00 - 0.00 ng/mL [facility] Comment: The 99th percentile for Troponin T is less than 0.01 ng/mL, any detectable cTnT concentration using this assay should be considered elevated. According to the third universal definition of myocardial infarction the following criteria with a clinical presentation consistent with acute myocardial ischemia meets the diagnosis for a myocardial infarction (TX). Detection of a rise and/or fall of cTnT, with at least one value greater than the 99th percentile (> or = 0.01) and with at least one of the following ?? Symptoms of ischemia ?? New or presumed new significant BI-oaraabn-V wave (ST-T) changes or new left bundle [...] additional sample may be indicated. Reference: Third [place] Definition of Myocardial Infarction. Journal of the [place] College [employer] 2012;60:1581-98 Blood specimen (specimen) Venous Draw / Unknown 02/04/2021 10:00 PM EDT 02/04/2021 10:08 PM EDT Narrative Resulting Agency Comment Spec In Lab Aaron Barry MD CHEMISTRY ORDERABLES [facility] [place] [address] * ABORH Recheck Status (02/04/2021 10:00 PM EDT) ABORH Type Recheck Completed [facility] Blood specimen (specimen) 02/04/2021 10:00 PM EDT 02/04/2021 10:08 PM EDT Narrative Resulting Agency Comment Spec In Lab Thedoore Watson APRN BLOOD BANK LAB ORDER MÓNICA Performing Organization Address City/[facility]/ZIP Co de Phone Number [facility] [place] [address] * Antibody screen (02/04/2021 10:00 PM EDT) Ab Screen Interp Negative [facility] Expires at [id number] on: 02/07/2021 [facility] Blood specimen (specimen) 02/04/2021 10:00 PM EDT 02/04/2021 10:08 PM EDT Narrative Resulting Agency Comment Spec In Lab Theodore Watson APRN BLOOD BANK LAB ORDER MÓNICA Performing Organization Address City/[facility]/ZIP Co de Phone Number [facility] [place] [address] * ABO/Rh Typing (02/04/2021 10:00 PM EDT) ABORH Type O Pos [facility] Blood specimen (specimen) 02/04/2021 10:00 PM EDT 02/04/2021 10:08 PM EDT Narrative Resulting Agency Comment Spec In Lab Theodore Watson APRN BLOOD BANK LAB ORDER MÓNICA [facility] [place] [address] * (ABNORMAL) Differential, Automated (02/04/2021 10:00 PM EDT) Neutrophils % 88.3 % [facility] Neutr Abs (ANC) 15.73(H) 1.70 - 6.10 x10(3)/ L [facility] Lymphocytes % 4.4 % [facility] Lymphocytes Abs 0.8(L) 0.9 - 3.2 x10(3)/[facility] Monocytes % 5.3 % [facility] Monocyte Abs 0.9 0.3 - 0.9 x10(3)/[facility] Eosinophils % 0.4 % [facility] Eosinophils Abs 0.1 0.0 - 0.4 x10(3)/[facility] Basophils % 0.4 % [facility] Basophils Abs 0.1 0.0 - 0.1 x10(3)/[facility] Immature Gran % 1.20 % [facility] Comment: Immature granulocytes(IG's)percentage and absolute count will include metamyelocytes, myelocytes, and promyelocytes. Blood smears from CBCs yielding IG's will be scanned manually for concordance. If this scan disagrees with the automated IG or if promyelocytes are noted, a manual differential will be performed. Anya Gran Abs 0.21(H) 0.00 - 0.04 x10(3)/ L [facility] Blood specimen (specimen) 02/04/2021 10:00 PM EDT 02/04/2021 10:06 PM EDT Narrative Resulting Agency Comment Spec In Lab Theodore Watson [facility] [place] [address] * (ABNORMAL) Hemogram (02/04/2021 10:00 PM EDT) WBC 17.8(H) 4.0 - 9.5 x10(3)/[facility] RBC 3.30(L) 4.00 - 5.21 x10(6)/[facility] Hemoglobin 9.9(L) 11.7 - 15.5 gm/dL [facility] Hematocrit 30.6(L) 35.7 - 45.8 % [facility] MCV 92.7 82.6 - 94.4 [facility] Comment: Patient Transfused.. This result has been called to NOT CALLED by Alyssa Garcia on 02 04 2021 at 2230, and has not been read back. MCH 30.0 27.1 - 32.0 pg [facility] MCHC 32.4 31.7 - 35.0 gm/dL [facility] Platelets 246 145 - 357 x10(3)/[facility] RDWSD 49.1(H) 37.0 - 46.0 [facility] RDWCV 14.4(H) 11.5 - 14.1 % [facility] MPV 11.5 7.6 - 12.9 [facility] nRBC % Auto 0.0 % [facility] nRBC Abs Auto 0.000 0.000 - 0.000 x10(3)/[facility] Blood specimen (specimen) 02/04/2021 10:00 PM EDT 02/04/2021 10:06 PM EDT Narrative Resulting Agency Comment Spec In Lab Theodore Watson APRN HEMATOLOGY ORDERABLE S [facility] [place] [address] * (ABNORMAL) CMP w/fasting Glucose (02/04/2021 10:00 PM EDT) Glucose Fasting 143(H) 65 - 99 mg/dL [facility] Comment: ?Fasting* Glucose Interpretive [...] of Diabetes Mellitus, Position Statement from the [place] [employer]. ??Diabetes Care, Volume 33, Supplement 1, Oct 2009 BUN 24(H) 8 - 18 mg/dL [facility] Creatinine 1.29(H) 0.70 - 1.20 mg/dL [facility] Sodium 137 135 - 145 mmol/L [facility] Potassium 4.2 3.5 - 5.0 mmol/L [facility] Comment: Please note: ??Patients with WBC >100,000 may have falsely elevated Potassium levels. ??For accurate Potassium quantification in these patients send serum separator tube (gold top) for subsequent determinations. ??Contact the Clinical Chemistry Laboratory if there are any questions. Chloride 101 98 - 107 mmol/L [facility] CO2 26 22 - 31 mmol/L [facility] Anion Gap 10 5 - 15 mmol/L [facility] Calcium 8.4(L) 8.5 - 10.5 mg/dL [facility] Total Protein 6.8 6.1 - 8.0 gm/dL [facility] Albumin 2.3(L) 3.2 - 5.2 gm/dL [facility] AST 34(H) 0 - 30 unit/L [facility] ALT 26 0 - 30 unit/L [facility] Alk Phos 222(H) 35 - 105 unit/L [facility] Total Bilirubin 0.6 0.2 - 1.3 mg/dL [facility] Estimated GFR 43(L) >=60 mL/min/1. 73 m?? [facility] Comment: This patient? s [...] in addition to eGFR. Blood specimen (specimen) 02/04/2021 10:00 PM EDT 02/04/2021 10:06 PM EDT Narrative Resulting Agency Comment Spec In Lab Theodore Watson APRN CHEMISTRY ORDERABLES Performing Organization Address City/[facility]/ZIP Co de Phone Number [facility] [place] [address] * APTT (02/04/2021 10:00 PM EDT) PTT 29 25 - 37 sec [facility] Comment: The PTT is NOT appropriate for heparin monitoring. Use the Anti-Xa level for heparin monitoring (HEP UFH) or LMWH monitoring (HEP LMW). A PTT less than 37 seconds generally indicates adequate hemostasis. Blood specimen (specimen) 02/04/2021 10:00 PM EDT 02/04/2021 10:06 PM EDT Narrative Resulting Agency Comment Spec In Lab Theodore Watson APRN HEMATOLOGY ORDERABLE S Performing Organization Address City/[facility]/ZIP Co de Phone Number [facility] [place] [address] * (ABNORMAL) Prothrombin Time (02/04/2021 10:00 PM EDT) PT 13.6(H) 9.4 - 12.5 sec [facility] INR 1.2 [facility] Comment: An INR <2.0 indicates [...] depending on clinical circumstances. Blood specimen (specimen) 02/04/2021 10:00 PM EDT 02/04/2021 10:06 PM EDT Narrative Resulting Agency Comment Spec In Lab Theodore Watson APRN HEMATOLOGY ORDERABLE S Performing Organization Address City/[facility]/ZIP Co de Phone Number [facility] [place] [address] * EKG 12 Lead (02/04/2021 9:38 PM EDT) Ventricular rate 98 BPM MUSE SYSTEM Atrial Rate 98 BPM MUSE SYSTEM P-R Interval 214 ms MUSE SYSTEM QRS Duration 82 ms MUSE SYSTEM Q-T Interval 400 ms MUSE SYSTEM QTC Calculated (Bezet) 510 ms MUSE SYSTEM Calculated P Rheems 43 degrees MUSE SYSTEM Calculated R Rheems 52 degrees MUSE SYSTEM Calculated T Rheems -176 degrees MUSE SYSTEM INTERPRETATION Sinus rhythm with 1st degree A-V block Low voltage QRS T wave abnormality, consider anterolateral ischemia Prolonged QT Abnormal ECG When compared with ECG of 25-JAN-2021 08:28, Criteria for Anterior infarct are no longer Present Criteria for Anterolateral infarct are no longer Present Criteria for Inferior infarct are no longer Present T wave inversion now evident in Anterolateral leads Confirmed by MD BROOKE, BRYAN ([id number]) on 02/05/2021 8:31:26 AM MUSE SYSTEM 02/04/2021 9:38 PM EDT 02/05/2021 8:31 AM EDT Brittny Woods MD ECG ORDERABLES Performing Organization Address City/[facility]/ZIP Co de Phone Number MUSE SYSTEM * POCT Glucose (02/04/2021 9:04 PM EDT) POC Glucose 139 65 - 199 mg/dL [facility] Comment: Supplemental ranges: <140 mg/dL before meals <180 mg/dL all other times of the day Blood specimen (specimen) 02/04/2021 9:04 PM EDT 02/04/2021 9:04 PM EDT Brittny Woods MD POINT OF CARE TEST O RDERABLES Performing Organization Address City/State/[facility] [[email or web address]] Co de Phone Number [facility] [place] [address] documented in this encounter Visit Diagnoses Diagnosis Acute exacerbation of congestive heart failure- Primary Congestive heart failure, unspecified Acute biliary pancreatitis, unspecified complication status Congestive heart failure, unspecified HF chronicity, unspecified heart failure type Chest pain, unspecified type ASCVD (arteriosclerotic cardiovascular disease) Unspecified cardiovascular disease Acute on chronic congestive heart failure, unspecified heart failure type Pancreatitis Acute pancreatitis Pancreatic pseudocyst Cyst and pseudocyst of pancreas HFrEF (heart failure with reduced ejection fraction) ASCVD (arteriosclerotic cardiovascular disease) Unspecified cardiovascular disease Left lumbar radiculopathy Thoracic or lumbosacral neuritis or radiculitis, unspecified documented in this encounter Admitting Diagnoses Diagnosis Pancreatitis Acute pancreatitis ASCVD (arteriosclerotic cardiovascular disease) Unspecified cardiovascular disease documented in this encounter Administered Medications Inactive Administered Medications - up to 3 most recent administrations Medication Order MAR Action Action Date Dose Rate Site acetaminophen (Tylenol) tablet 650 mg 650 mg, Oral, EVERY 6 HOURS PRN, Starting on Wed02/04/21 at 2152, Until Wed02/13/21 at 1506, Pain, Maximum dose of acetaminophen is 4000 mg from all sources in 24 hours. When ordered for pain, acetaminophen should be given even when other ordered pain medications are indicated. , Routine Given 02/12/2021 9:13 AM EDT 650 mg Given 02/10/2021 3:16 AM EDT 650 mg Given 02/09/2021 5:59 AM EDT 650 mg aspirin chewable tablet 243 mg 243 mg, Oral, ONCE, 1 dose, On Wed02/07/21 at 1200, Routine Given 02/07/2021 11:39 AM EDT 243 mg aspirin chewable tablet 81 mg 81 mg, Oral, DAILY, First dose on Wed02/06/21 at 1645, Until Discontinued, Routine Given 02/13/2021 8:24 AM EDT 81 mg Given 02/12/2021 9:03 AM EDT 81 mg Given 02/11/2021 8:13 AM EDT 81 mg atorvastatin (Lipitor) tablet 40 mg 40 mg, Oral, EVERY EVENING, First dose on Wed02/04/21 at 2200, Until Discontinued, Routine Given 02/06/2021 4:11 PM EDT 40 mg Given 02/05/2021 4:38 PM EDT 40 mg Given 02/04/2021 10:13 PM EDT 40 mg atorvastatin (Lipitor) tablet 80 mg 80 mg, Oral, EVERY EVENING, First dose (after last modification) on Wed02/07/21 at 1700, Until Discontinued, Routine Given 02/12/2021 4:27 PM EDT 80 mg Given 02/11/2021 4:15 PM EDT 80 mg Given 02/10/2021 4:55 PM EDT 80 mg calcium carbonate (Tums) chewable tablet 500-1,000 mg 500-1,000 mg, Oral, 2 TIMES DAILY PRN, Starting on Wed02/07/21 at 2309, Until Wed02/13/21 at 1506, Heartburn, Give 500 mg (1 tablet) for mild to moderate heartburn. Give 1,000 mg (2 tablets) for severe heartburn., Routine Given 02/07/2021 11:26 PM EDT 500 mg clopidogreL (Plavix) tablet 75 mg 75 mg, Oral, DAILY, First dose on Wed02/11/21 at 1130, Until Discontinued, Routine Given 02/13/2021 8:24 AM EDT 75 mg Given 02/12/2021 9:02 AM EDT 75 mg Given 02/11/2021 11:52 AM EDT 75 mg dextrose 10% infusion 250 mL, at 1,000 mL/hr, Intravenous, EVERY 30 MIN PRN, Starting on Wed02/05/21 at 0106, Until Wed02/13/21 at 1506, For BG 50-70 mg/dL: Oral treatment preferred:?? [...] 30 mg, Oral, DAILY, First dose on Wed02/05/21 at 0900, Until Discontinued, Routine Given 02/05/2021 9:05 AM EDT [address] (Cymbalta) capsule 60 mg 60 mg, Oral, DAILY, First dose on Wed02/06/21 at 0900, Until Discontinued, Routine Given 02/13/2021 8:25 AM EDT 60 mg Given 02/12/2021 9:02 AM EDT 60 mg Given 02/11/2021 8:13 AM EDT 60 mg furosemide (Lasix) (10 mg/mL) injection 40 mg 40 mg, Intravenous, ONCE, 1 dose, On Wed02/05/21 at 0200, Routine Given 02/05/2021 1:51 AM EDT 40 mg furosemide (Lasix) (10 mg/mL) injection 40 mg 40 mg, Intravenous, 2 TIMES DAILY, First dose on Wed02/05/21 at 1115, Until Discontinued, Routine Given 02/07/2021 8:26 AM EDT 40 mg Given 02/06/2021 8:17 PM EDT 40 mg Given 02/06/2021 8:35 AM EDT 40 mg furosemide (Lasix) (10 mg/mL) injection 40 mg 40 mg, Intravenous, ONCE, 1 dose, On Wed02/06/21 at 1415, Routine Given 02/06/2021 3:19 PM EDT 40 mg furosemide (Lasix) (10 mg/mL) injection 40 mg 40 mg, Intravenous, 2 TIMES DAILY, First dose (after last modification) on Wed02/07/21 at 1300, Until Discontinued, Please hold for HR < 60, SBP < 90. Thank you, Routine Given 02/10/2021 6:33 AM EDT 40 mg Given 02/09/2021 1:00 PM EDT 40 mg Le ft Arm Given 02/09/2021 5:59 AM EDT 40 mg furosemide (Lasix) (10 mg/mL) injection 40 mg 40 mg, Intravenous, 3 TIMES DAILY, 5 doses, First dose (after last modification) on Wed02/10/21 at 1200, Last dose on Wed02/11/21 at 1800, Please time the lasix doses for 6 am, noon, and 6pm Please hold for HR < 60, SBP < 90. Thank you, Routine Given 02/11/2021 5:16 PM EDT 40 mg Left Arm Given 02/11/2021 11:19 AM EDT 40 mg L eft Arm Given 02/11/2021 5:25 AM EDT 40 mg gabapentin (Neurontin) capsule 100 mg 100 mg, Oral, DAILY AT NOON, First dose on Wed02/05/21 at 1200, Until Discontinued, Routine Given 02/13/2021 11:55 AM EDT 100 mg Given 02/12/2021 11:45 AM EDT 100 mg Given 02/11/2021 11:19 AM EDT 100 mg gabapentin (Neurontin) capsule 200 mg 200 mg, Oral, 2 TIMES DAILY, First dose on Wed02/05/21 at 0900, Until Discontinued, Routine Given 02/13/2021 8:24 AM EDT 200 mg Given 02/12/2021 9:38 PM EDT 200 mg Given 02/12/2021 9:02 AM EDT 200 mg glucagon (Glucagen) (1 mg/mL) injection solution 1 mg 1 mg, Intramuscular, EVERY 30 MIN PRN, Starting on Wed02/05/21 at 0106, Until Wed02/13/21 at 1506, Low blood sugar, For BG 50-70 mg/dL: [...] Buccal, EVERY 30 MIN PRN, Starting on Wed02/05/21 at 0106, Until Jodee 02/13/21 at 1506, Low blood sugar, For BG 50-70 mg/dL: [...] EVERY 8 HOURS SCHEDULED, First dose on Wed02/04/21 at 2200, Until Discontinued, Routine Given 02/13/2021 6:23 AM EDT 5,000 Units Left Upper Outer Quadrant Given 02/12/2021 9:38 PM EDT 5,000 Units R ight Upper Outer Quadrant Given 02/12/2021 2:32 PM EDT 5,000 Units insulin lispro (HumaLOG;Admelog) (100 unit/mL) subcutaneous injection vial 1-5 Units 1-5 Units, Subcutaneous, 3 TIMES DAILY BEFORE MEALS, First dose on Wed02/05/21 at 0730, Until Discontinued, CORRECTION BOLUS [1-4 Units] Sensitive [...] > 240 in 2 hours., Routine Given 02/13/2021 11:55 AM EDT 1 Units Given 02/12/2021 9:36 PM EDT 1 Units Given 02/12/2021 11:46 AM EDT 1 Units losartan (Cozaar) tablet 25 mg 25 mg, Oral, DAILY, First dose on Wed02/11/21 at 1130, Until Discontinued, Routine Given 02/13/2021 8:24 AM EDT 25 mg Given 02/12/2021 9:09 AM EDT 25 mg Given 02/11/2021 11:52 AM EDT 25 mg magnesium oxide (Mag-Ox) tablet 400 mg 400 mg, Oral, 2 TIMES DAILY, First dose on Wed02/10/21 at 0900, Until Discontinued, Routine Given 02/13/2021 8:24 AM EDT 400 mg Given 02/12/2021 9:38 PM EDT 400 mg Given 02/12/2021 9:03 AM EDT 400 mg magnesium sulfate 1 g in dextrose 5% 100 mL infuison 1 g, Intravenous, ONCE, 1 dose, On 02/08/21 at 0545, Administer over 60 Minutes New Bag 02/08/2021 5:40 AM EDT 1 g 100 mL/hr magnesium sulfate 2 g in sterile water 50 mL infusion 2 g, Intravenous, ONCE, 1 dose, On Wed02/05/21 at 1700, Administer over 120 Minutes New Bag 02/05/2021 4:35 PM EDT 2 g 25 mL/hr magnesium sulfate 2 g in sterile water 50 mL infusion 2 g, Intravenous, ONCE, 1 dose, On Wed02/06/21 at 0845, Administer over 120 Minutes New Bag 02/06/2021 8:25 AM EDT 2 g 25 mL/hr magnesium sulfate 2 g in sterile water 50 mL infusion 2 g, Intravenous, ONCE, 1 dose, On Wed02/07/21 at 0830, Administer over 120 Minutes New Bag 02/07/2021 8:27 AM EDT 2 g 25 mL/hr magnesium sulfate 2 g in sterile water 50 mL infusion 2 g, Intravenous, ONCE, 1 dose, On Wed02/09/21 at 0730, Administer over 120 Minutes New Bag 02/09/2021 6:56 AM EDT 2 g 25 mL/hr magnesium sulfate 2 g in sterile water 50 mL infusion 2 g, Intravenous, ONCE, 1 dose, On Wed02/09/21 at 1030, Administer over 120 Minutes, Please administer second dose once first dose has finished infusing New Bag 02/09/2021 10:53 AM EDT 2 g 25 mL/hr magnesium sulfate 2 g in sterile water 50 mL infusion 2 g, Intravenous, ONCE, 1 dose, On Wed02/11/21 at 0745, Administer over 120 Minutes New Bag 02/11/2021 7:52 AM EDT 2 g 25 mL/hr Left Arm magnesium sulfate 2 g in sterile water 50 mL infusion 2 g, Intravenous, ONCE, 1 dose, On Wed02/12/21 at 0800, Administer over 120 Minutes New Bag 02/12/2021 9:09 AM EDT 2 g 25 mL/hr magnesium sulfate 2 g in sterile water 50 mL infusion 2 g, Intravenous, ONCE, 1 dose, On Wed02/13/21 at 0800, Administer over 120 Minutes New Bag 02/13/2021 8:24 AM EDT 2 g 25 mL/hr melatonin tablet 9 mg 9 mg, Oral, NIGHTLY, First dose on Wed02/07/21 at 2100, Until Discontinued, Routine Given 02/12/2021 9:38 PM EDT 9 mg Given 02/11/2021 8:34 PM EDT 9 mg Given 02/10/2021 9:01 PM EDT 9 mg metoprolol tartrate (Lopressor) tablet 12.5 mg 12.5 mg, Oral, EVERY 12 HOURS SCHEDULED (2 times per day), First dose on Wed02/06/21 at 2100, Until Discontinued, Please hold for HR < 60, SBP < 90. Thank you, Routine Given 02/10/2021 8:59 PM EDT 12.5 mg Given 02/10/2021 9:18 AM EDT 12.5 mg Given 02/09/2021 9:47 PM EDT 12.5 mg metoprolol tartrate (Lopressor) tablet 25 mg 25 mg, Oral, EVERY 12 HOURS SCHEDULED (2 times per day), First dose (after last modification) on Wed02/11/21 at 0900, Until Discontinued, Please hold for HR < 60, SBP < 90. Thank you, Routine Given 02/13/2021 8:25 AM EDT 25 mg Given 02/12/2021 9:38 PM EDT 25 mg Given 02/12/2021 9:09 AM EDT 25 mg ondansetron ODT (Zofran-ODT) disintegrating tablet 4 mg 4 mg, Oral, EVERY 8 HOURS PRN, Starting on Wed02/07/21 at 0952, Until Wed02/13/21 at 1506, Nausea, Routine Given 02/11/2021 8:35 PM EDT 4 mg oxyCODONE (Roxicodone) tablet 5 mg 5 mg, Oral, EVERY 4 HOURS PRN, Starting on Wed02/04/21 at 2310, Until Wed02/13/21 at 1506, Pain, Routine Given 02/12/2021 10:08 PM EDT 5 mg Given 02/12/2021 10:49 AM EDT 5 mg Given 02/11/2021 8:33 PM EDT 5 mg pantoprazole EC (Protonix) tablet 40 mg 40 mg, Oral, DAILY, First dose on Wed02/05/21 at 0900, Until Discontinued, DO NOT CRUSH OR OPEN Given 02/13/2021 8:25 AM EDT 40 mg Given 02/12/2021 9:03 AM EDT 40 mg Given 02/11/2021 8:13 AM EDT 40 mg perflutren protein-A microsphers (Optison) (0.22 mg/mL) injection 3 mL 3 mL, Intravenous, ONCE PRN, 1 dose, Starting on Wed02/05/21 at 1546, Until Wed02/05/21 at 1410, for enhancement of sub-optimal echo images, Echo Lab (Intra-Procedure), Routine Given 02/05/2021 2:10 PM EDT 3 mLs polyethylene glycoL (Miralax) packet 17 g 17 g, Oral, DAILY PRN, Starting on Wed02/07/21 at 1056, Until Wed02/13/21 at 1506, Constipation, Routine potassium chloride ER (K-Dur/Klor-Con) tablet 40 mEq 40 mEq, Oral, ONCE, 1 dose, On Wed02/05/21 at 1700, Routine Given 02/05/2021 4:38 PM EDT 40 mEq potassium chloride ER (K-Dur/Klor-Con) tablet 40 mEq 40 mEq, Oral, ONCE, 1 dose, On Jodee 02/06/21 at 0945, Routine Given 02/06/2021 10:30 AM EDT 40 mEq potassium chloride ER (K-Dur/Klor-Con) tablet 40 mEq 40 mEq, Oral, ONCE, 1 dose, On Wed02/07/21 at 0830, Routine Given 02/07/2021 8:26 AM EDT 40 mEq potassium chloride ER (K-Dur/Klor-Con) tablet 40 mEq 40 mEq, Oral, ONCE, 1 dose, On Wed02/07/21 at 1345, Routine Given 02/07/2021 2:12 PM EDT 40 mEq potassium chloride ER (K-Dur/Klor-Con) tablet 40 mEq 40 mEq, Oral, ONCE, 1 dose, On 02/08/21 at 0845, Routine Given 02/08/2021 10:11 AM EDT 40 mEq potassium chloride ER (K-Dur/Klor-Con) tablet 40 mEq 40 mEq, Oral, ONCE, 1 dose, On 02/10/21 at 1515, 20 mEq tablet may be dissolved in water for administration, Routine Given 02/10/2021 3:52 PM EDT 40 mEq senna-docusate (Pericolace) 8.6-50 mg per tablet 2 tablet 2 tablet, Oral, 2 TIMES DAILY, First dose on Wed02/05/21 at 0200, Until Discontinued, Routine Given 02/06/2021 8:07 PM EDT 2 tablets Given 02/06/2021 8:31 AM EDT 2 tablets Given 02/05/2021 8:07 PM EDT 2 tablets sodium chloride 0.9 % (flush) flush 5 mL 5 mL, Intravenous, 2 TIMES DAILY, First dose on Wed02/04/21 at 2200, Until Discontinued, Routine Given 02/13/2021 8:25 AM EDT 5 mLs Given 02/12/2021 9:30 PM EDT 10 mLs Given 02/12/2021 9:10 AM EDT 10 mLs spironolactone (Aldactone) tablet 12.5 mg 12.5 mg, Oral, DAILY, First dose on Wed02/12/21 at 1000, Until Discontinued, DO NOT SPLIT, CRUSH OR OPEN, Routine Given 02/13/2021 8:25 AM EDT 12.5 mg Given 02/12/2021 9:09 AM EDT 12.5 mg sucralfate (Carafate) (100 mg/mL) oral liquid 1 g 1 g, Oral, 4 TIMES DAILY BEFORE MEALS & NIGHTLY, First dose on Wed02/08/21 at 1200, Until Discontinued, Routine Given 02/13/2021 11:55 AM EDT 1 g Given 02/13/2021 6:36 AM EDT 1 g Given 02/12/2021 9:38 PM EDT 1 g torsemide (Demadex) tablet 20 mg 20 mg, Oral, DAILY, First dose on Wed02/12/21 at 0900, Until Discontinued, Routine Given 02/13/2021 8:25 AM EDT 20 mg Given 02/12/2021 9:03 AM EDT 20 mg traZODone (Desyrel) tablet 50 mg 50 mg, Oral, NIGHTLY, First dose on Wed02/10/21 at 2100, Until Discontinued, Routine Given 02/12/2021 9:40 PM EDT 50 mg Given 02/11/2021 8:34 PM EDT 50 mg Given 02/10/2021 9:00 PM EDT 50 mg trimethobenzamide (Tigan) (100 mg/mL) injection 200 mg 200 mg, Intramuscular, EVERY 8 HOURS PRN, Starting on Wed02/04/21 at 2308, Until Wed02/13/21 at 1506, Nausea, Routine documented in this encounter Active and Recently Administered Medications Times are shown in EDT. Scheduled Medication Order 02/11/2021 02/12/2021 02/13/2021 aspirin chewable tablet 81 mg 81 mg, Oral, DAILY, First dose on Wed02/06/21 at 1645, Until Discontinued, Routine 0813 (Given - Provider: Nora Judge LPN) 0903 (Given - Provider: Vin Hart RN) 0824 (Given - Provider: Cindy Cervantes RN) atorvastatin (Lipitor) tablet 80 mg 80 mg, Oral, EVERY EVENING, First dose (after last modification) on Wed02/07/21 at 1700, Until Discontinued, Routine 1615 (Given - Provider: Nora Judge LPN) 1627 (Given - Provider: Vin Hart RN) clopidogreL (Plavix) tablet 75 mg 75 mg, Oral, DAILY, First dose on Wed02/11/21 at 1130, Until Discontinued, Routine 1152 (Given - Provider: Nora Judge LPN) 0902 (Given - Provider: Vin Hart RN) 0824 (Given - Provider: Cindy Cervantes RN) DULoxetine DR (Cymbalta) capsule 60 mg 60 mg, Oral, DAILY, First dose on Wed02/06/21 at 0900, Until Discontinued, Routine 0813 (Given - Provider: Nora Judge LPN) 0902 (Given - Provider: Vin Hart RN) 0825 (Given - Provider: Cindy Cervantes RN) furosemide (Lasix) (10 mg/mL) injection 40 mg (COMPLETED) 40 mg, Intravenous, 3 TIMES DAILY, 5 doses, First dose (after last modification) on Wed02/10/21 at 1200, Last dose on Wed02/11/21 at 1800, Please time the lasix doses for 6 am, noon, and 6pm Please hold for HR < 60, SBP < 90. Thank you, Routine 0525 (Given - Provider: Leeanna Suarez, RODERICK)1119 (Given - Provider: Blanca Malcolm RN)1716 (Given - Provider: Blanca Malcolm RN) gabapentin (Neurontin) capsule 100 mg 100 mg, Oral, DAILY AT NOON, First dose on Wed02/05/21 at 1200, Until Discontinued, Routine 1119 (Given - Provider: Blanca Malcolm RN) 1145 (Given - Provider: Vin Hart RN) 1155 (Given - Provider: Cindy Cervantes, RODERICK) gabapentin (Neurontin) capsule 200 mg 200 mg, Oral, 2 TIMES DAILY, First dose on Wed02/05/21 at 0900, Until Discontinued, Routine 0813 (Given - Provider: Nora Judge LPN)2033 (Given - Provider: Laura Desai RN) 09 (Given - Provider: Vin Hart RN)2138 (Given - Provider: Shayy Ashley RN) 0824 (Given - Provider: Cindy Cervantes RN) heparin (porcine) (5,000 units/1 mL) subcutaneous injection 5,000 Units 5,000 Units, Subcutaneous, EVERY 8 HOURS SCHEDULED, First dose on Wed02/04/21 at 2200, Until Discontinued, Routine 0526 (Given - Provider: Leeanna Suarez RN)1410 (Given - Provider: Blanca Malcolm RN)2207 (Given - Provider: Laura Desai RN) 0506 (Given - Provider: Laura Desai RN)1432 (Given - Provider: Vin Hart RN)2138 (Given - Provider: Shayy Ashley RN) 0623 (Given - Provider: Shayy Ashley RN) insulin lispro (HumaLOG;Admelog) (100 unit/mL) subcutaneous injection vial 1-5 Units(Linked Group 1) 1-5 Units, Subcutaneous, 3 TIMES DAILY BEFORE MEALS, First dose on Wed02/05/21 at 0730, Until Discontinued, CORRECTION BOLUS [1-4 Units] Sensitive [...] of > 240 in 2 hours., Routine 0655 (Not Given - Provider: Leeanna Suarez RN - Reason: Order parameters not met)1130 (Not Given - Provider: Nora Judge LPN - Reason: Order parameters not met)1630 (Not Given - Provider: Nora Judge LPN - Reason: Order parameters not met) 0654 (Not Given - Provider: Laura Desai RN - Reason: Order parameters not met)1146 (Given - Provider: Vin Hart RN)1627 (Not Given - Provider: Vin Hart RN - Reason: Order parameters not met)2136 (Given - Provider: Shayy Ashley RN - Comment: [id number]) 0730 (Not Given - Provider: Shayy Ashley RN - Reason: Order parameters not met - Comment: [id number])1155 (Given - Provider: Cindy Cervantes RN) losartan (Cozaar) tablet 25 mg 25 mg, Oral, DAILY, First dose on Wed02/11/21 at 1130, Until Discontinued, Routine 1152 (Given - Provider: Nora Judge LPN) 0909 (Given - Provider: Vin Hart RN) 0824 (Given - Provider: Cindy Cervantes RN) magnesium oxide (Mag-Ox) tablet 400 mg 400 mg, Oral, 2 TIMES DAILY, First dose on Wed02/10/21 at 0900, Until Discontinued, Routine 0813 (Given - Provider: Nora Judge LPN)203 (Given - Provider: Laura Desai RN) 0903 (Given - Provider: Vin Hart RN)2138 (Given - Provider: Shayy Ashley RN) 0824 (Given - Provider: Cindy Cervantes, RODERICK) magnesium sulfate 2 g in sterile water 50 mL infusion (COMPLETED) 2 g, Intravenous, ONCE, 1 dose, On Wed02/11/21 at 0745, Administer over 120 Minutes 0752 (New Bag - Provider: Blanca Malcolm, RODERICK)1010 (Stopped - Provider: Blanca Malcolm, RODERICK) magnesium sulfate 2 g in sterile water 50 mL infusion (COMPLETED) 2 g, Intravenous, ONCE, 1 dose, On Wed02/12/21 at 0800, Administer over 120 Minutes 0909 (New Bag - Provider: Vin Hart RN)1109 (Stopped - Provider: Vin Hart RN) magnesium sulfate 2 g in sterile water 50 mL infusion (COMPLETED) 2 g, Intravenous, ONCE, 1 dose, On Wed02/13/21 at 0800, Administer over 120 Minutes 0824 (New Bag - Provider: Cindy Cervantes RN)1024 (Stopped - Provider: Cindy Cervantes RN) melatonin tablet 9 mg 9 mg, Oral, NIGHTLY, First dose on Wed02/07/21 at 2100, Until Discontinued, Routine 2033 (Given - Provider: Laura Desai RN) 2137 (Given - Provider: Shayy Ashley RN) metoprolol tartrate (Lopressor) tablet 25 mg 25 mg, Oral, EVERY 12 HOURS SCHEDULED (2 times per day), First dose (after last modification) on Wed02/11/21 at 0900, Until Discontinued, Please hold for HR < 60, SBP < 90. Thank you, Routine 812 (Given - Provider: Nora Judge LPN)2032 (Given - Provider: Laura Desai RN) 09 (Given - Provider: Vin Hart RN)2137 (Given - Provider: Shayy Ashley RN) 0825 (Given - Provider: Cindy Cervantes RN) pantoprazole EC (Protonix) tablet 40 mg 40 mg, Oral, DAILY, First dose on Wed02/05/21 at 0900, Until Discontinued, DO NOT CRUSH OR OPEN 08 (Given - Provider: Nora Judge LPN) 0903 (Given - Provider: Vin Hart RN) 0825 (Given - Provider: Cindy Cervantes, RODERICK) sodium chloride 0.9 % (flush) flush 5 mL 5 mL, Intravenous, 2 TIMES DAILY, First dose on Wed02/04/21 at 2200, Until Discontinued, Routine 0826 (Given - Provider: Blanca Malcolm RN)2034 (Given - Provider: Laura Desai RN) 09 (Given - Provider: Vin Hart RN)213 (Given - Provider: Shayy Ashley, RODERICK) 0825 (Given - Provider: Cindy Cervantes, RODERICK) spironolactone (Aldactone) tablet 12.5 mg 12.5 mg, Oral, DAILY, First dose on Wed02/12/21 at 1000, Until Discontinued, DO NOT SPLIT, CRUSH OR OPEN, Routine 0909 (Given - Provider: Vin Hart RN) 0825 (Given - Provider: Cindy Cervantes RN) sucralfate (Carafate) (100 mg/mL) oral liquid 1 g 1 g, Oral, 4 TIMES DAILY BEFORE MEALS & NIGHTLY, First dose on Wed02/08/21 at 1200, Until Discontinued, Routine 0658 (Given - Provider: Leeanna Suarez RN)1119 (Given - Provider: Blanca Malcolm RN)1615 (Given - Provider: Nora Judge LPN)2046 (Given - Provider: Laura Desai RN) 0653 (Given - Provider: Laura Desai RN)1145 (Given - Provider: Vin Hart RN)1627 (Given - Provider: Vin Hart RN)2138 (Given - Provider: Shayy Ashley, RODERICK) 0636 (Given - Provider: Janet Rubi RN)1155 (Given - Provider: Cindy Cervantes RN) torsemide (Demadex) tablet 20 mg 20 mg, Oral, DAILY, First dose on Wed02/12/21 at 0900, Until Discontinued, Routine 0903 (Given - Provider: Vin Hart RN) 0825 (Given - Provider: Cindy Cervantes RN) traZODone (Desyrel) tablet 50 mg 50 mg, Oral, NIGHTLY, First dose on Wed02/10/21 at 2100, Until Discontinued, Routine 2033 (Given - Provider: Laura Desai RN) 2139 (Given - Provider: Shayy Ashley RN) PRN Medication Order 02/11/2021 02/12/2021 02/13/2021 acetaminophen (Tylenol) tablet 650 mg 650 mg, Oral, EVERY 6 HOURS PRN, Starting on Wed02/04/21 at 2152, Until Wed02/13/21 at 1506, Pain, Maximum dose of acetaminophen is 4000 mg from all sources in 24 hours. When ordered for pain, acetaminophen should be given even when other ordered pain medications are indicated. , Routine 912 (Given - Provider: Vin Hart RN) calcium carbonate (Tums) chewable tablet 500-1,000 mg 500-1,000 mg, Oral, 2 TIMES DAILY PRN, Starting on Wed02/07/21 at 2309, Until Wed02/13/21 at 1506, Heartburn, Give 500 mg (1 tablet) for mild to moderate heartburn. Give 1,000 mg (2 tablets) for severe heartburn., Routine dextrose 10% infusion(Linked Group 2) 250 mL, at 1,000 mL/hr, Intravenous, EVERY 30 MIN PRN, Starting on Wed02/05/21 at 0106, Until Wed02/13/21 at 1506, For BG 50-70 mg/dL: Oral treatment preferred:?? [...] Intramuscular, EVERY 30 MIN PRN, Starting on Wed02/05/21 at 0106, Until Jodee 02/13/21 at 1506, Low blood sugar, For BG 50-70 mg/dL: [...] Buccal, EVERY 30 MIN PRN, Starting on Wed02/05/21 at 0106, Until Jodee 02/13/21 at 1506, Low blood sugar, For BG 50-70 mg/dL: [...] Subcutaneous, ONCE PRN, 1 dose, Starting on Wed02/04/21 at 2114, Until Wed02/13/21 at 1506, for discomfort with PIV insertion, Routine magnesium citrate oral liquid 296 mL 296 mL, Oral, DAILY PRN, Starting on Wed02/05/21 at 0106, Until Wed02/13/21 at 1506, Constipation, Routine ondansetron ODT (Zofran-ODT) disintegrating tablet 4 mg 4 mg, Oral, EVERY 8 HOURS PRN, Starting on Wed02/07/21 at 0952, Until Wed02/13/21 at 1506, Nausea, Routine 2034 (Given - Provider: Laura Desai RN) oxyCODONE (Roxicodone) tablet 5 mg 5 mg, Oral, EVERY 4 HOURS PRN, Starting on Wed02/04/21 at 2310, Until Wed02/13/21 at 1506, Pain, Routine 1119 (Given - Provider: Blanca Malcolm RN)2032 (Given - Provider: Laura Desai RN) 1049 (Given - Provider: Vin Hart RN)2207 (Given - Provider: Shayy Ashley, RODERICK) polyethylene glycoL (Miralax) packet 17 g 17 g, Oral, DAILY PRN, Starting on Wed02/07/21 at 1056, Until Wed02/13/21 at 1506, Constipation, Routine sodium chloride 0.9 % (flush) flush 5-20 mL 5-20 mL, Intravenous, EVERY 1 MIN PRN, Starting on Wed02/04/21 at 2114, Until Wed02/13/21 at 1506, flush, Flush pertains to all indwelling lines. Flush per protocol found in the job aid using the link provided on this medication record., Routine trimethobenzamide (Tigan) (100 mg/mL) injection 200 mg 200 mg, Intramuscular, EVERY 8 HOURS PRN, Starting on Wed02/04/21 at 2308, Until Wed02/13/21 at 1506, Nausea, Routine Linked Groups Order Group 1: POCT Fingerstick Glucose (CANCELED) Routine, 4 TIMES DAILY BEFORE MEALS & AT BEDTIME, First occurrence on Wed02/05/21 at 0700, Until Specified, Consider choosing FOUR TIMES A DAY BEFORE MEALS AND AT BEDTIME as frequency for: Patients who have good hypoglycemia awareness: -Patients who are eating meals during the day and sleeping at night -Patient who are otherwise stable And insulin lispro (HumaLOG;Admelog) (100 unit/mL) subcutaneous injection vial 1-5 UnitsJump to med 1-5 Units, Subcutaneous, 3 TIMES DAILY BEFORE MEALS, First dose on Wed02/05/21 at 0730, Until Discontinued, CORRECTION BOLUS [1-4 Units] Sensitive [...] Buccal, EVERY 30 MIN PRN, Starting on Wed02/05/21 at 0106, Until Wed02/13/21 at 1506, Low blood sugar, For BG 50-70 mg/dL: [...] Intravenous, EVERY 30 MIN PRN, Starting on Wed02/05/21 at 0106, Until Wed02/13/21 at 1506, For BG 50-70 mg/dL: Oral treatment preferred:?? [...] Intramuscular, EVERY 30 MIN PRN, Starting on Wed02/05/21 at 0106, Until Jodee 02/13/21 at 1506, Low blood sugar, For BG 50-70 mg/dL: [...] Routine documented in this encounter Care Teams Civil Service Worker Relationship Specialty Start Date End Date Asia Gil DO [address] [place] [address] PCP - General Family Medicine 07/09/20 documented as of this encounter
--- OUTSIDE RECORDS SUMMARY | 2024-05-02 12:11 | XMS_ITS | Encounter Summary ---
Author Organization [facility] [address] Care Team Providers Care Vac Press Operator Name Role Phone Asia Gil DO Primary Care Provider [phone] Encounter Details Date Type Department Care Team (Late st Contact Info) Description 02/06/2021 [place] [phone] Silvana Giordano CMA Social History Tobacco Use Types Packs/Day Years [...] encounter Miscellaneous Notes * Telephone Encounter - Silvana Giordano CMA - 02/06/2021 10:12 AM EDT Patient is currently admitted [place] [facility] [place], [place]. Would you kindly fax cardiology records (Dr. Ceja): Echo reports, Cath reports and most recent cardiology notes. Patient: Toyin Coley : 1955 To Attention: Sadie Giordano CMA Thank you, Sadie documented in this encounter Plan of Treatment Upcoming Encounters Date Type Department Care Team (Latest Contact Info) Description 05/08/2024 10:30 AM EDT Hospital [place] [phone] Bk Contreras MD [facility] [place] [address] 05/08/2024 10:30 AM EDT - 05/08/2024 11:00 AM EDT Surgery Pain Management [place] [phone] Bk Contreras MD [facility] [place] [address] INJECTION, ANESTHETIC AGENT AND/OR STEROID, TRANSFORAMINAL EPIDURAL, LUMBAR OR SACRAL, SINGLE LEVEL (WRVU 1.9) 05/12/2024 1:00 PM EDT Office Visit Cardiology at [address] Sadi Styles MD [facility] [place] [address] 05/29/2024 10:15 AM EDT TH Visit (TeleHealth) [facility] [place] [phone] Natalee Sanchez, KURTIS [facility] [place] [address] Scheduled Procedures Name Priority Associated Diagnoses Date/Ti me INJECTION, ANESTHETIC AGENT AND/OR STEROID, TRANSFORAMINAL EPIDURAL, LUMBAR OR SACRAL, SINGLE LEVEL (WRVU 1.9) Left lumbar radiculopathy 05/08/2024 10:30 AM EDT documented as of this encounter Visit Diagnoses Not on filedocumented in this encounter Care Teams Vac Press Operator Relationship Specialty Start Date End Date Asia Gil DO [address] [place] [address] PCP - General Family Medicine 07/09/20 documented as of this encounter
--- OUTSIDE RECORDS SUMMARY | 2024-05-02 12:11 | XMS_ITS | Encounter Summary ---
Author Organization [facility] [place] [address] Care Team Providers Care Manager Mall Name Role Phone Asia Gil DO Primary Care Provider [phone] Reason for Referral * Consultation (Routine) - Closed Specialty Diagnoses / Procedures Referred By Contac t Referred To Contact Gastroenterology Diagnoses Pancreatic pseudocyst Cystic duct calculus Freddie Montes MD [facility] [place] [address] [facility] [address] [place] [address] Referral ID Status Reason Start Date Expiration Date V isits Requested Visits Authorized [id number] Closed Consult, Test & Treat 02/03/2021 02/03/2022 1 1 Reason for Visit * Reason Comments Hospital Transfer from [facility] for ED/Hos p med Edema * Auth/Cert Specialty Diagnoses / Procedures Referred By Contac t Referred To Contact Diagnoses Pancreatitis pancreatitis Procedures EMERGENCY IPI Referral ID Status Reason Start Date Expiration Date Visits Re quested Visits Authorized [id number] 1 1 Encounter Details Date Type Department Care Team (Latest Contact Info) Description 01/28/2021 7:07 PM EDT - 02/03/2021 11:32 AM EDT Hospital Encounter 1 [place] [address] Blanca Mitchell MD [facility] [place] [address] [place] [address] [place] [address] [place] [address] Pancreatitis (Primary Dx); Pancreatic pseudocyst; Cystic duct calculus Discharge Disposition: Home with VNA Social History Tobacco Use Types Packs/Day Years Used Date Smoking Tobacco: Never Smokeless Tobacco: Never Comments:uses medical [facility] Alcohol Use Standard Drinks/Week Comments Not Currently 0 (1 standard drink = 0.6 oz pur e alcohol) Sex and Gender Information Value Date Recorded Sex Assigned at Not on file Gender Identity Not on file Sexual Orientation Not on file documented as of this encounter Last Filed Vital Signs Vital Sign Reading Time Taken Comments Blood Pressure 111/65 02/03/2021 6:30 AM EDT Pulse 97 02/03/2021 6:30 AM EDT Temperature 36.8 ??C (98.2 ??F) 02/03/2021 6:30 AM ED T Respiratory Rate 16 02/03/2021 6:30 AM EDT Oxygen Saturation 92% 02/03/2021 6:30 AM EDT Inhaled Oxygen Concentration - - Weight 91.9 kg (202 lb 8 oz) 01/29/2021 4:41 PM EDT Height 160 cm (5' 3) 01/29/2021 4:41 PM EDT Body Mass Index 35.87 01/29/2021 4:41 PM EDT documented in this encounter Discharge Summaries * Freddie Montes MD - 02/03/2021 10:45 AM EDT Images from the original note were not included. Discharge Summary Patient Name: Toyin Lion Patient Age: 65 y.o. Language: East Timorese Race: White Ethnicity: Not nor Admit date: 01/28/2021 Discharge date and time: 02/03/21 Attending Physician: Travis Callahan MD Discharge Physician: Freddie Montes MD Follow-up Recommendations for Providers: - Lisinopril 10mg stopped during admission due to soft BP. Please re-assess if it is still needed - Sent home with 15 tablets of Oxycodone 5mg q8h PRN. Please assess for pain control - Has appointment with Gen Surg on 03/04 to address retained stone. Please ensure follow-up Inpatient Provider Contact Information: For questions regarding this document or issues relating to this hospitalization on the Medical Service, please contact your inpatient physician through the [facility] Gra[employer] . Issues afterhours and on weekends will be handled by the Hospitalist staff on-call. Discharge Diagnoses (Hospital Problems) and Secondary Diagnoses (Chronic Problems): Active Hospital Problems Diagnosis ??? Pancreatitis ??? Pancreatic pseudocyst ??? Cystic duct calculus Resolved Hospital Problems No resolved problems to display. Active Non-Hospital Problems Diagnosis ??? PONV (postoperative nausea and vomiting) ??? RUQ pain ??? Anxiety ??? Diabetic neuropathy ??? Nonalcoholic steatohepatitis ??? Restless legs syndrome (RLS) ??? CKD (chronic kidney disease) ??? Delirium ??? Hyperlipidemia ??? Hypertension ??? Diabetes mellitus type 2, uncomplicated ??? Hx-TIA (transient ischemic attack) ??? GERD (gastroesophageal reflux disease) ??? Environmental allergies Operations/Major Procedures: Operations: Other Major Procedures: N/A History of Presentation (from admission H&P): Toyin Lion is a 65 y.o. 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 ?? Patient initially presented, and was admitted, to Hospital Medicine 01/17 with abdominal pain after ERCP. Patient has a history of chronic RUQ and R flank pain since her cholecystectomy ([facility], 2016). Recent work-up has included EGD, colonoscopy (12/25) & ultimately RUQ U/S (12/27) which demonstrated a retained stone in the cystic duct remnant versus infundibulum with surrounding wall thickening prompting ERCP 01/17. Unfortunately, she presented to the ED shortly thereafter due to abdominal pain. Lipase was significantly elevated >3K in this setting and CT A/P was consistent with pancreatitis. Patient was treated with IV fluids, Tylenol and oxycodone with an unfortunate uptrend in her WBC count prompting increase in her IV fluid rate with interval improvement in her leukocytosis. Abdominal pain was waxing and waning per hx and unfortunately complicated by constipation during this hospitalization. Patient was discharged 01/27, at her request. Per d/c note: Patient had rising WBC on discharge. Patient was encouraged to stay, but [...] decided that her hospital stay had been long enough. Patient agreeable to close follow-up as outpatient and low threshold to visit ED. ?? Patient re-presents this evening with edema & ongoing abdominal pain. She reports feeling terrible with fatigue, weakness, and ongoing RUQ pain. Since discharge reports abdominal pain is unchanged; though again has been significantly & stably worse since ERC. She denies fever, chills, weight loss/gain, emesis, diarrhea. Has been tolerating PO intake without abdominal pain & having more or less regular BMs, last this AM. Has been taking tylenol consistently since getting home. ?? In the ED patient is hemodynamically stable with heart rate in the 80s, blood pressure 120-130/40-50, saturating appropriately on room air. Labs are notable for - CBC: leukocytosis (20.2), anemia (8.7, 25.9), thrombocytopenia (123) - LFTs: Mixed cholestatic and hepatocellular liver function abnormalities, with elevated T bili compared to prior and worsening of higher alk phos from prior. -Elevated lipase > 1200 - No repeat imaging at this time - Patient receved requested lidocaine patch for low back pain (she attributes to lumbar herniated disc) but no other interventions at this time. Hospital Course: #Elevated lipase?? #Mixed ERCP and gallstone pancreatitis, Patient admitted to hospital medicine. Elevated lipase and CT showed interval loculation of enlarged thick-walled collection and pancreatitis. Zosyn was initially started in setting of elevated WBC, but was d/c as patient remained non-toxic and WBC was attributed to inflammation 2/2 to pancreatitis. Hida scan showed no bile leak. MRCP showed possible retained calculi. Per GI consult it was felt there was no role for scoping, but supportive care only. General surgery felt surgical intervention would be appropriate after inflammation resolved, with expected surgery in 6-12 weeks following resolution. Patient was placed on LR maintenance fluids, that were d/c after a couple of days. Pain management included oxycodone, which was continued on discharge with a short course. Patient was initiailly NPO, but diet was advanced as tolerated. On discharge patient was on low fat diet, which she tolerated well. On discharge patient was HDS and at baseline abdominal pain. ?? #History of constipation Given constipation on last admission patient was maintained on sched'd docusate senna, PRN mag citrate, and Miralax QD prn ?? #GETACHEW on CKD III- improving Patient was admitted with elevated Cr with concerns for pre-renal GETACHEW. Patient was placed on fluids(as above) with decreased Cr to baseline. Held nephrotoxic agents. ?#HTN Held home lisinopril in setting of GETACHEW and soft/normal blood pressures. ?? #NIDDM II Last A1c 7 Placed on sensitive SSI. Continued home gabapentin for neuropathy. Vital Signs at Discharge: BP: 111/65, Heart Rate: 97, Temp: 36.8 ??C (98.2 ??F), Resp: 16, BMI (Calculated): 35.87 Height: 160 cm (5' 3) (01/29/21 1641) Weight: 91.9 kg (202 lb 8 oz) (01/29/21 1641) Functional and Cognitive Status: Functionally and Cognitively Intact Important Studies and Lab Data: Labs: Last 3 wbc, hgb, hct plt Recent Labs 02/03/2124402/02/2122502/01/21 0615 WBC 15.3* 14.4* 18.7* HGB 7.9* 7.6* 7.9* HCT 25.2* 23.5* 23.9* PLATELET 207 185 207 Last 3 Lytes Recent Labs 02/03/21 02402/02/216 02/01/21 0615 NA 132* 134* 133* K 4.6 4.6 4.4 CL 100 102 101 CO2 BUN 26* 30* 32* CREATININE 1.24* 1.18 1.27* Last 3 LFTs Recent Labs 02/03/2124402/02/2122502/01/2115 01/28/21195401/17/212050 AST 52* 52* 58* 66* 224* ALT 34* 33* 37* 43* 152* ALKPHOS 235* 223* 255* 269* 111* BILITOT 0.6 0.6 0.8 1.0 0.6 BILIDIR -- -- -- 0.6* 0.3 Studies: Microbiology Results (Last 30 days) Procedure Component Value Units Date/Time Blood culture [[id number]] Collected: 01/29/21 0133 Lab Status: Final result Specimen: Blood Updated: 02/03/21 0701 Blood Culture No growth at 5 days. Urine culture [[id number]] Collected: 01/28/212125 Lab Status: Final result Specimen: Clean Catch Urine Updated: 01/29/21 1950 Urine Culture No growth (Less than 1,000 cfu/ml). COVID-19 PCR [[id number]] Collected: 01/28/21 194 Lab Status: Final result Specimen: Nasopharyngeal Swab Updated: 01/28/21 2214 Rapid SARS-CoV-2 RNA Not Detected Comment: This result should be interpreted in [...] using the Simplexa COVID-19 Direct Assay by Docitt as authorized by the FDA issued Emergency [...] Department of Pathology and Laboratory Medicine at [facility], certified under the Clinical Laboratory Improvement Amendments [...] fact sheets at the following FDA website: https://www.fda.gov/medical-devices/aearmipwlga-opwlirz-1911-sibwz-65-zttwvrwpf- ish-tfriecscumgiop-mqunrmb-devices/zvsjn-igpyjuiutth-ndke SARS-CoV-2 Source LEAD PYTHON DEVELOPER Swab COVID-19 PCR [[id number]] Collected: 01/17/212221 Lab Status: Final result Specimen: Nasopharyngeal Swab Updated: 01/18/21221 Rapid SARS-CoV-2 RNA Not Detected Comment: This result should be interpreted in [...] using the Simplexa COVID-19 Direct Assay by Docitt as authorized by the FDA issued Emergency [...] Department of Pathology and Laboratory Medicine at [facility], certified under the Clinical Laboratory Improvement Amendments [...] fact sheets at the following FDA website: https://www.fda.gov/medical-devices/cnbxwjwlgao-naovtpg-9161-zgfko-76-shxjcphao- tbq-cfablkiophsaap-rmwqmsu-devices/xdnqv-jdvledaostc-gqgj SARS-CoV-2 Source LEAD PYTHON DEVELOPER Swab Results for orders placed or performed during the hospital encounter of 01/28/21 CT Abdomen & Pelvis wo Contrast (Exam End: 01/29/2021 3:56 AM) Impression * Increased peripancreatic and periduodenal tracking into the Fallon's pouch and the pelvis in the setting of known pancreatitis. Evaluation of the pancreatic parenchyma is limited due to lack of IV contrast. * Interval loculation of an enlarged 5.5 x 5.5 x 4.1 cm thick-walled collection anterior to the hepatic flexure (series 3 image 70). Differential considerations include pseudocyst (more likely), walled off necrosis, and abscess. * Unchanged gallstone in the gallbladder/cystic duct remnant. * Thickening of the duodenum, likely reactive. Preliminary report signed by: Nik Dodge at 01/29/2021 4:34 AM I have personally reviewed the image(s) and the resident's interpretation and agree with the findings, Van Moy MD at 01/29/2021 5:21 AM Thank you for letting us participate in the care of this patient. If you are a health care provider and have any questions regarding this report, please contact the number below. For patients who have questions please contact the health gericare aide that requested your imaging first. Cholangiopancreatography wwo Contrast (Exam End: 01/29/2021 7:52 PM) Impression 1. 2 small intraluminal signal voids seen in the common bile duct without biliary ductal dilatation. Possible retained calculi. 2. Pancreas: Mild diffuse edema. No pancreatic ductal dilatation. 3. Large peripherally enhancing partially loculated fluid collection surrounding the pancreatic head and uncinate process, as described above; possible pseudocyst, however, cannot exclude an abscess. Thank you for letting us participate in the care of this patient. If you are a health care provider and have any questions regarding this report, please contact the number below. For patients who have questions please contact the health gericare aide that requested your imaging first. Electronically signed by: Beau Montemayor MD, [facility] ([phone]), at 01/30/2021 8:05 AM NM Biliary tract Imaging (Exam End: 01/29/2021 1:08 PM) Impression Normal hepatic function with no evidence of biliary leak. Thank you for letting us participate in the care of this patient. If you are a health care provider and have any questions regarding this report, please contact the number below. For patients who have questions please contact the health gericare aide that requested your imaging first. Electronically signed by: Chan Fernández MD, [facility] ([phone]), at 01/29/2021 3:44 PM Pending Studies and Lab Data: None Discharge Conditions/Prognosis: Stable Discharge to: Home Updated Allergies/ADRs: Allergies Allergen [...] for this patient. Discharge Medications: Your Medications New Medications Dose Details oxyCODONE 5 mg Tab Commonly known as: Roxicodone Take 1 tablet by mouth every 8 hours as needed for Pain. 5 mg Quantity: 15 tablet Refills: 0 polyethylene glycoL 17 gram Pwpk Commonly known as: Miralax Take 17 g by mouth daily. Start taking on: February 04, 2021 17 g Quantity: 14 each Refills: 0 [...] 50 mg Quantity: 30 tablet Refills: 12 mirtazapine 7.5 mg Tab Commonly known as: REMERON Take 7.5 mg by mouth nightly. 7.5 mg Refills: 0 multivitamin Tab Commonly known as: THERAGRAN Take 1 tablet by mouth daily. 1 tablet Refills: 0 pantoprazole EC 40 mg Tbec Commonly known as: Protonix Take 1 tablet by mouth daily. 40 mg Quantity: 90 tablet Refills: 3 * This list has 3 medication(s) that are the same as other medications prescribed for you. Read thedirections carefully, and ask your doctor or other care provider to review them with you. STOPPED Medications lisinopriL 10 mg Tab Commonly known as: Prinivil;Zestril Smoking Status at Discharge: Social History Tobacco Use Smoking Status Never Smoker Smokeless Tobacco Never Used Tobacco Comment uses medical [facility] Instructions Given to Patient at Discharge: Patient Instructions Instruction after leaving the hospital Why you were hospitalized: You had pancreatitis after your ERCP which required IV fluids and medications for pain control. Call your doctor or seek medical attention if you develop the following: Call your doctor or seek medical attention if you experience any alarming symptoms. This may include, but is not limited to, fever, chest pain, severe shortness of breath, nausea with vomiting, persistent decrease in your urinary output, severe pain, or any other concerning symptoms. Activity level: As tolerated. Diet: Please stay on a low-fat diet to avoid exacerbating your pancreatitis Driving: Please do not drive if you feel lightheaded, dizzy, faint, or taking any opioids/narcotics(i.e oxycodone). It is advisable that you do not drive till you follow-up with your primary care physician. Shower/Bath: No new restrictions. Wound Care: N/A Home Oxygen therapy: N/A Patient Instructions: Please take your medications as prescribed Please follow-up with your PCP Someone from GI will reach out to you about future appointments Changes in Your Medications: New Medications: Oxycodone (Roxicodone) 5mg every 8 hours as needed for pain Miralax 1 packet daily while taking oxycodone Stop these medications: Lisinopril 10mg Follow-Up Appointments Future Appointments Date Time Provider Department Center 03/03/2021 10:00 AM Yves Holt MD [facility] SURG [facility] Date and Time Provider and Specialty Location 02/12/21 @ 11:30AM Cass Abebe, OIL GAUGER [address] [facility] [id number] Your Inpatient Doctor(s) at [facility]: MD Freddie Servin MD Your Primary Care Provider: Asia Gil, DO [address] [facility] [id number] For questions regarding this document or issues relating to this hospitalization on the Medical Service, please contact your inpatient physician through the [facility] [employer]vel Truck Driver . Issues afterhours and on weekends will be handled by the Hospitalist staff on-call. General Instructions None Future Appointments and Orders Future Appointments and Orders Future Appointments Provider Department Dept Phone 03/03/2021 10:00 AM Yves Holt MD General Surgery at [facility] Arrive at: [place] [address] [phone] Future Orders Complete By Expires Referral to Gastroenterology [REF25 Custom] As directed Process Instructions: If requesting a colonoscopy please use [id number] AMB REFERRAL TO COLONOSCOPY PROCEDURE. This referral request is for evaluation and treatment of gastrointestinal health concerns. Scheduling Instructions: Questions: My question or request is: Patient admitted with post-ERCP pancreatitis Discharge References/Attachments None documented in this encounter Discharge Instructions * Patient Instructions* Freddie Montes MD - 02/03/2021 9:22 AM EDT Instruction after leaving the hospital Why you were hospitalized: You had pancreatitis after your ERCP which required IV fluids and medications for pain control. Call your doctor or seek medical attention if you develop the following: Call your doctor or seek medical attention if you experience any alarming symptoms. This may include, but is not limited to, fever, chest pain, severe shortness of breath, nausea with vomiting, persistent decrease in your urinary output, severe pain, or any other concerning symptoms. Activity level: As tolerated. Diet: Please stay on a low-fat diet to avoid exacerbating your pancreatitis Driving: Please do not drive if you feel lightheaded, dizzy, faint, or taking any opioids/narcotics(i.e oxycodone). It is advisable that you do not drive till you follow-up with your primary care physician. Shower/Bath: No new restrictions. Wound Care: N/A Home Oxygen therapy: N/A Patient Instructions: Please take your medications as prescribed Please follow-up with your PCP Someone from GI will reach out to you about future appointments Changes in Your Medications: New Medications: Oxycodone (Roxicodone) 5mg every 8 hours as needed for pain Miralax 1 packet daily while taking oxycodone Stop these medications: Lisinopril 10mg Follow-Up Appointments Future Appointments Date Time Provider Department Center 03/03/2021 10:00 AM Yves Holt MD [facility] SUR[facility] Date and Time Provider and Specialty Location 02/12/21 @ 11:30AM Cass Abebe APRN [address] [facility] [id number] Your Inpatient Doctor(s) at [facility]: MD Freddie Servin MD Your Primary Care Provider: Asia Gil DO [phone] [facility] [id number] For questions regarding this document or issues relating to this hospitalization on the Medical Service, please contact your inpatient physician through the [facility] Gravel Truck Driver . Issues afterhours and on weekends will be handled by the Hospitalist staff on-call. documented in this encounter Medications at Time of Discharge Medication Sig Dispensed Refills Start Date End Date nitroGLYcerin (Nitrostat) 0.4 mg Tablet, Sublingual Take 0.4 mg by mouth as needed. 07/08/2020 polyethylene glycoL (Miralax) 17 gram Powder in [...] by mouth daily. 90 tablet 3 01/27/2021 oxyCODONE (Roxicodone) 5 mg Tablet Take 1 [...] mouth daily. 30 tablet 11 01/27/2021 01/18/2023 multivitamin (THERAGRAN) Tablet Take 1 tablet by mouth daily. 02/13/2021 mirtazapine (REMERON) 7.5 mg Tablet Take 7.5 mg by mouth nightly. 03/26/2020 02/13/2021 documented as of this encounter Progress Notes * Zohra Weaver RN - 02/03/2021 11:32 AM EDT Grinder Set Up Operator received phone call from patient, daughter, Linda, who states that patient nearly fell getting into her home and expresses concern for home safety. Linda agrees to stay with patient this evening and she will assist with getting friend to stay withLinda tomorrow. MD aware that Linda would like to speak with him. The patient has been provided a list of Home Health Agencies/DME vendors which serve their preferred geographic area. A letter describing our affiliations was reviewed with them and they were educated about their right to choose where referrals are placed. CM Provided patient with [facility] Star Quality Rating for Home care hand out. Patient requests referral to [facility] PHONE: [phone] FAX: [phone]. Expected date of discharge: 02/03/21. Referral routed to the Career Manager for matching with agency/vendor and to provide any required information. CM to continue to monitor. Mary Weaver RNCM Pager: [phone] * Travis Callahan MD - 02/03/2021 11:32 AM EDT Hospital Medicine - Attending Day of Discharge Documentation Discharge diagnosis Active Hospital Problems Diagnosis ??? Pancreatitis ??? Pancreatic pseudocyst ??? Cystic duct calculus Resolved Hospital Problems No resolved problems to display. Secondary Issues Active Non-Hospital Problems Diagnosis ??? PONV (postoperative nausea and vomiting) ??? RUQ pain ??? Anxiety ??? Diabetic [...] spent >30 minutes (Day of Discharge Code 17540) involved in the final examination of the patient, discussion of the hospital stay, instructions for continuing care to all relevant caregivers, and preparation of discharge records, prescriptions and referral forms. Plans ? Discharge to home ? Follow-up scheduled with general surgery ? Please see the Discharge Summary for complete details of any medication changes and additional plans. * Jenny Tinajero RN - 02/03/2021 11:08 AM EDT Patient Name: Toyin Lion Patient Age: 65 y.o. Birthdate: 1955 Admit date: 01/28/2021 Attending Physician: Travis Callahan MD Patient AOx4, VSS, on RA. Patient complained of low back discomfort. 975 mg PO tylenol given x1 with moderate effect. AVS reviewed with patient and all peripheral IV's removed per protocol. Patient will be wheeled to [facility] where her son will pick her up for discharge to home. Will continue to monitor and notify MD while providing care. * Emerald Louis MD - 02/03/2021 9:25 AM EDT TACS DISCHARGE FOLLOW-UP REQUEST ID: Toyin Lion is a 65 y.o. female w/ SIMMONS cirrhosis,??HTN, HLD, DM2, GERD, TIA, CKD stage 3b and s/p CCY in 2016 c/b recurrent RUQ pain episodes since then with recently dx retained stone in likelycystic stump. The patient underwent an unsuccessful ERCP attempt at stone retrieval on 01/17/21 at [facility] c/b post-ERCP pancreatitis followed by 10-day hospitalization discharged 01/28, now representing with worsening leukocytosis, elevated lipase, GETACHEW, ascites and abdominal pain concerning for worsening pancreatitis with possible acute sloane- pancreatic fluid collection vs. necrosis. OR CASE INFORMATION: None FOLLOW-UP NEEDED: Specify Trauma LEAD PYTHON DEVELOPER or Attending and time frame (please indicate reason if attending provider): Attending (either Dr. Steele, Dr. De Los Santos, or Dr. Holt) - case planning Imaging and Referral orders entered: No, not required Radiology Safety questions done for MRI/CT? N/A Patient over age 65? Make sure to drop Xuan dot if answer yes ON DISCHARGE SUMMARY/AVS. Yes New or current ostomy? Ostomy nurse shared visit No Mobility concerns: Fully ambulatory Wound vac (requires 60min clinic visit) No On vent? If Yes - Needs to have someone from facility and supplies. No On Dialysis: No (SCHEDULE?) Emerald Louis MD 02/03/2021 * Emerald Louis MD - 02/03/2021 9:23 AM EDT [facility] Acute Care Surgery Consult Progress Note Consult Reason: Retained cystic stone in setting of abdominal pain and pancreatitis HPI: Toyin Lion is a 65 y.o. female w/ a hx of biopsy proven SIMMONS cirrhosis,??HTN, HLD, DM2, GERD, hx TIA, CKD stage 3b and s/p CCY in 2015 at [facility] with recurrent RUQ pain episodes since. She said she has had multiple workups without resolution and a few weeks ago, she had the pain return and u nderwent an US which revealed per documentation: retained stone in a cystic duct remnant vs. infundibulum with surrounding wall thickening. We don't have the images in our system. Other recent workup includes EGD/colo in December 2020 which by report was only notable for some benign polyps in colon,EGD normal. She was recently admitted to hospital medicine at [facility] from 01/17 to 01/27 after she underwent what was scheduled as an outpatient ERCP to attempt stone retrieval. Unfortunately, while they found a single small cholecystolithiasis adherent to the wall of the cystic stump/retained infundibulum, attempts to remove the stone were unsuccessful. Post procedure, she unfortunately developed a post-ERCP pancreatitis which was diagnosed on CT scan and with a lipase >3,000 on post-procedure day and post-op day 1 and then on 01/19 (post day 2), it was 891. She was managed with fluid resuscitation and pain control. She had an GETACHEW post CT w/ IV contrast. She was hospitalized for 10 days and notably her WBC had been uptrending the days prior to discharge (15.2 on 01/25, 21.8 on 01/26, 18.6 on 01/27). She also had a rising Cr on 01/27 but she demanded to be discharged despite recommendations to be monitored. She was discharged to home on 01/27 and per the patient, her daughter called GI today because she was so swollen and she was told to come to a local ED. She went to [facility] where her lipase was report edly 3300, WBC 22k and she was given zosyn and transferred to [facility] ED. General surgery was consulted for assistance in management considering she still c/o RUQ pain and the cystic stump/retained infundibulum. She denied any fever or recent sick contacts. Reported a bowel movement the day prior, passing flatus, and tolerating a diet. 24 Hour Events/ Subjective: - Patient continues to endorse right sided abdominal pain, however reports it is tolerable, improved, and similar to the pain which she had been having at baseline - Is now passing gas, has had a bowel movement - WBC today 15.3 Physical Exam: Temp: [36.5 ??C (97.7 ??F)-36.8 ??C (98.2 ??F)] Heart Rate: [92-97] Resp: [15-17] BP: (111-168)/(64-88) SpO2: [92 %-94 %] Heart Rate from SpO2: [90 bpm-96 bpm] Gen: seen sitting in chair, A0x3 HEENT: KIERA, MMM CVS: RRR Pulm: CTAB, breathing without difficulty on RA GI: softly distended w/ edema, TTP in RUQ with an area of firmness in the deep tissues, non tympanitic, old lap port scars well healed, small bruise in right mid abdomen likely from an injection site, no masses/hernias MSK: WWP, 2+ edema/anasarca Vascular: palp pulses Neuro: moving all 4 extremities spontaneously, nonfocal Data independently reviewed: Recent Results (from the past 24 hour(s)) POCT Glucose Result Value Ref Range POC Glucose 165 65 - 199 mg/dL POCT Glucose Result Value Ref Range POC Glucose 180 65 - 199 mg/dL POCT Glucose Result Value Ref Range POC Glucose 146 65 - 199 mg/dL CMP w/fasting Glucose Result Value Ref Range Glucose Fasting 121 (H) 65 - 99 mg/dL BUN 26 (H) 8 - 18 mg/dL Creatinine 1.24 (H) 0.70 - 1.20 mg/dL Sodium 132 (L) 135 - 145 mmol/L Potassium 4.6 3.5 - 5.0 mmol/L Chloride 100 98 - 107 mmol/L CO2 25 22 - 31 mmol/L Anion Gap 7 5 - 15 mmol/L Calcium 8.4 (L) 8.5 - 10.5 mg/dL Total Protein 6.8 6.1 - 8.0 gm/dL Albumin 2.2 (L) 3.2 - 5.2 gm/dL AST 52 (H) 0 - 30 unit/L ALT 34 (H) 0 - 30 unit/L Alk Phos 235 (H) 35 - 105 unit/L Total Bilirubin 0.6 0.2 - 1.3 mg/dL Estimated GFR 45 (L) >=60 mL/min/1.73 m?? Hemogram Result Value Ref Range WBC 15.3 (H) 4.0 - 9.5 x10(3)/mcL RBC 2.55 (L) 4.00 - 5.21 x10(6)/mcL Hemoglobin 7.9 (L) 11.7 - 15.5 gm/dL Hematocrit 25.2 (L) 35.7 - 45.8 % MCV 98.8 (H) 82.6 - 94.4 fL MCH 31.0 27.1 - 32.0 pg MCHC 31.3 (L) 31.7 - 35.0 gm/dL Platelets 207 145 - 357 x10(3)/mcL RDWSD 46.6 (H) 37.0 - 46.0 fL RDWCV 13.0 11.5 - 14.1 % MPV 11.3 7.6 - 12.9 fL nRBC % Auto 0.0 % nRBC Abs Auto 0.000 0.000 - 0.000 x10(3)/mcL Differential, Automated Result Value Ref Range Neutrophils % 80.4 % Neutr Abs (ANC) 12.32 (H) 1 - 6 x10(3)/mcL Lymphocytes % 10.7 % Lymphocytes Abs 1.6 0.9 - 3.2 x10(3)/mcL Monocytes % 6.9 % Monocyte Abs 1.0 (H) 0.3 - 0.9 x10(3)/mcL Eosinophils % 0.4 % Eosinophils Abs 0.1 0.0 - 0.4 x10(3)/mcL Basophils % 0.2 % Basophils Abs 0.0 0.0 - 0.1 x10(3)/mcL Immature Gran % 1.40 % Anya Gran Abs 0.21 (H) 0.00 - 0.04 x10(3)/mcL POCT Glucose Result Value Ref Range POC Glucose 181 65 - 199 mg/dL Imaging: CT w/ PO contrast (no IV) 01/28/21: IMPRESSION * Increased peripancreatic and periduodenal tracking into the Fallon's pouch and the pelvis in the setting of known pancreatitis. Evaluation of the pancreatic parenchyma is limited due to lack of IV contrast. * Interval loculation of an enlarged 5.5 x 5.5 x 4.1 cm thick-walled collection anterior to the hepatic flexure (series 3 image 70). Differential considerations include pseudocyst (more likely), walled off necrosis, and abscess. * Unchanged gallstone in the gallbladder/cystic duct remnant. * Thickening of the duodenum, likely reactive. HIDA 01/29/21: IMPRESSION Normal hepatic function with no evidence of biliary leak. MRCP 01/29/21: IMPRESSION 1. 2 small intraluminal signal voids seen in the common bile duct without biliary ductal dilatation. Possible retained calculi. 2. Pancreas: Mild diffuse edema. No pancreatic ductal dilatation. 3. Large peripherally enhancing partially loculated fluid collection surrounding the pancreatic head and uncinate process, as described above; possible pseudocyst, however, cannot exclude an abscess. ?? Impression: 65 y.o. comorbid female w/ SIMMONS cirrhosis,??HTN, HLD, DM2, GERD, TIA, CKD stage 3b and s/p CCY in 2016 c/b recurrent RUQ pain episodes since then with recently dx retained stone in likelycystic stump who underwent an unsuccessful ERCP attempt at stone retrieval on 01/17/21 at [facility] c/b post-ERCP pancreatitis followed by 10-day hospitalization discharged 01/28, now representing with worsening leukocytosis, elevated lipase, GETACHEW, ascites and abdominal pain concerning for worsening pancreatitis with possible acute sloane- pancreatic fluid collection vs. necrosis. On imaging, there is a small gallbladder stump that has a retained stone in it, most easily seen onERCP. She does appear to also possibly have stones in the common bile duct based on the MRCP. Nevertheless, given her pancreatitis, it would be best to wait at least 6 weeks and up to 3 months for her pancreatic inflammation to improve before intervening with a completion cholecystectomy. Recommendation: - Patient appropriate for discharge from general surgery standpoint - No plans for completion cholecystectomy at this time, will wait 6-12 weeks until acute inflammation related to pancreatitis has resolved. Plan to arrange for follow up in general surgery clinic in 4-6 weeks to discuss surgical planning. Emerald Louis MD 02/03/2021 ACS consult pager: [phone] * Zohra Weaver RN - 02/03/2021 9:16 AM EDT CARE MANAGEMENT FINAL DISCHARGE NOTE Chart reviewed, care reviewed with primary team and at interdisciplinary rounds. Patient is medically ready for discharge 02/03/21. Needs for Transition of Care Plan for discharge is: Home without needs Agency Referrals: VNA initially, however, at this time, no services indicated Transportation: Grinder Set Up Operator in to speak with patient, Toyin Lion, to discuss discharge planning. Toyin states that she is independent in her room, she still feels a bit weak. Toyin's grand daughter lives upstairs in home in [facility]. Her daughter and son in law have purchased food for her to have when she gets home andcan assist her with needs. She can also have a friend come over and stay with her during the day asneeded. While she feels weak, she still plans on being active inside and outside of her home with friends and family at this time stating I think I am weak because I have spent so much time in the hospital in bed. Toyin states she also has her cell phone which she will keep on her in case of needs. MD and RN aware of discharge plan and MD to confirm medical readiness for discharge today. Tentative plan, per Toyin, for son in law to turkey picker at [place] [facility] today at 11:00am. Toyin is waiting to call her son in law to pick her up until she speaks with MD. Functional status prior to admission: Independent Home Environment: People in Home: grandchild(chhaya)(Adult grand daughter lives upstiars). Living Arrangements: house. Lives in small home with 4 stairs. Current Functional Ability: Independent in room per nursing notes Current DME: walker, rolling DME Needed at DC: none Patient is insured through: Primary Insurance: [employer] MANAGED MEDICARE Payor: AARP MANAGED MEDICARE / [facility] / Product Type: *No Product type* / Secondary Insurance: [employer] [place] Prescription Coverage: See above Preferred Pharmacy: See below [id number] - [place], [place] - [address] [facility] [id number] [id number] [place], [place] - [address] [facility] [address] [facility] [id number] This plan was formulated with input from patient, Toyin Lion and team. All are in agreement withplan. Due to current public health concerns, I have verbally reviewed Medicare Discharge Rights with patient. Patient, Toyin Lion, verbalizes understanding of right to appeal this discharge if feeling not medically ready. Offered a copy of this letter, patient declines stating I feel ready to go home. Zohra Weaver RN Case Wire Preparation Machine Tender of Care Management Pager: [phone] * Ghazala Bragg MD - 02/03/2021 6:43 AM EDT Inpatient Medicine Progress Note Hospital Day 6 days Active Hospital Problems Diagnosis ??? Pancreatitis ??? Pancreatic pseudocyst ??? Cystic duct calculus Resolved Hospital Problems No resolved problems to display. Patient ID: Toyin Lion is a 65 y.o. 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 24 Hour Events/Subjective: - NAEO/AVSS - Tolerating diet - Still requiring PO oxy: 5mg x3 yesterday - No concerns or complaints this morning Vitals: Last value Range last 24 hrs Temperature Temp: 36.8 ??C (98.2 ??F) Temp: [36.5 ??C (97.7 ??F)-36.8 ??C (98.2 ??F)] Heart Rate Heart Rate: 97 Heart Rate: [92-97] Blood Pressure BP: 111/65 BP: (111-168)/(64-88) Respiratory Rate Resp: 16 Resp: [15-20] SpO2 SpO2: 92 % SpO2: [92 %-94 %] Ins/Outs: Intake/Output Summary (Last 24 hours) at 02/03/2021 0643 Last data filed at 02/03/2021 0635 Gross per 24 hour Intake 1250 ml Output 1800 ml Net -550 ml Patient Vitals for the past 168 hrs: Weight 01/29/21 1641 91.9 kg (202 lb 8 oz) 01/28/21 192 87.5 kg (192 lb 12.8 oz) Physical Exam: Gen: Alert & oriented x3, NAD, well nourished,sitting up in chair HEENT: PERRLA, EOMI, no conjunctival injection, no icterus CV: RRR, no obvious M/R/G Pulm: Normal respiratory effort, CTA with good air entery bilaterally, no rales/rhonchi/wheezes Abd: Tenderness without rebound or guarding, most prominent in the RUQ. Normoactive bowel sounds. Ext: 1+ non-pitting edema in the bilateral lower extremities Neuro: Grossly intact, moving all four extremities spontaneously Skin: Warm, dry, no rashes. Labs: Recent Labs 02/03/2124402/02/2122502/01/2115 WBC 15.3* 14.4* 18.7* HGB 7.9* 7.6* 7.9* PLATELET 207 185 207 Recent Labs 02/03/2124402/02/2122502/01/21 0615 NA 132* 134* 133* K 4.6 4.6 4.4 CL 100 102 101 CO2 25 24 23 BUN 26* 30* 32* CREATININE 1.24* 1.18 1.27* Recent Labs 02/03/2124402/02/2122502/01/21 0615 CALCIUM 8.4* 8.1* 8.3* Recent Labs 02/03/2124402/02/2122502/01/21 0615 01/28/211954 AST 52* 52* 58* 66* ALT 34* 33* 37* 43* ALKPHOS 235* 223* 255* 269* BILITOT 0.6 0.6 0.8 1.0 BILIDIR -- -- -- 0.6* No results for input(s): TROPONINT, CK in the last 168 hours. No results for input(s): PHART, BQX3EAM, PO2ART, WBC0JTX in the last 168 hours. Imaging MRI Cholangiopancreatography wwo Contrast Final Result 1. 2 small intraluminal signal voids seen in the common bile duct without biliary ductal dilatation. Possible retained calculi. 2. Pancreas: Mild diffuse edema. No pancreatic ductal dilatation. 3. Large peripherally enhancing partially loculated fluid collection surrounding the pancreatic head and uncinate process, as described above; possible pseudocyst, however, cannot exclude an abscess. Thank you for letting us participate in the care of this patient. If you are a health care provider and have any questions regarding this report, please contact the number below. For patients who have questions please contact the health gericare aide that requested your imaging first. Electronically signed by: Beau Montemayor MD, [facility] ([phone]), at 01/30/2021 8:05 AM NM Biliary tract Imaging Final Result Normal hepatic function with no evidence of biliary leak. Thank you for letting us participate in the care of this patient. If you are a health care provider and have any questions regarding this report, please contact the number below. For patients who have questions please contact the health gericare aide that requested your imaging first. Electronically signed by: Chan Fernández MD, [facility] ([phone]), at 01/29/2021 3:[address] Abdomen & Pelvis wo Contrast Final Result * Increased peripancreatic and periduodenal tracking into the Afllon's pouch and the pelvis in the setting of known pancreatitis. Evaluation of the pancreatic parenchyma is limited due to lack of IV contrast. * Interval loculation of an enlarged 5.5 x 5.5 x 4.1 cm thick-walled collection anterior to the hepatic flexure (series 3 image 70). Differential considerations include pseudocyst (more likely), walled off necrosis, and abscess. * Unchanged gallstone in the gallbladder/cystic duct remnant. * Thickening of the duodenum, likely reactive. Preliminary report signed by: Nik Dodge at 01/29/2021 4:34 AM I have personally reviewed the image(s) and the resident's interpretation and agree with the findings, Van Moy MD at 01/29/2021 5:21 AM Thank you for letting us participate in the care of this patient. If you are a health care provider and have any questions regarding this report, please contact the number below. For patients who have questions please contact the health gericare aide that requested your imaging first. Inpatient Medications: Scheduled Meds: ??? lidocaine 3 patch Transdermal Q24H And ??? lidocaine 3 patch Transdermal Q24H ??? polyethylene glycoL (MIRALAX) oral powder 17 g Oral Daily ??? DULoxetine DR 30 mg Oral Daily ??? gabapentin 100 mg Oral Daily at Noon ??? gabapentin 200 mg Oral BID ??? metoprolol tartrate 12.5 mg Oral Q6H ??? mirtazapine 7.5 mg Oral Nightly ??? pantoprazole EC 40 mg Oral Daily ??? sodium chloride 0.9 % (flush) 5 mL Intravenous BID ??? heparin (porcine) 5,000 Units Subcutaneous Q8H BASIL ??? senna-docusate 2 tablet Oral BID ??? insulin lispro 1-5 Units Subcutaneous TID AC Continuous Infusions: PRN Meds:.acetaminophen, oxyCODONE OR HYDROmorphone, camphor-methyl salicyl- menthol, famotidine, ondansetron, prochlorperazine, sodium chloride 0.9 % (flush), lidocaine, magnesium hydroxide, melatonin, calcium carbonate, glucose 40% oral geL OR dextrose 10% OR glucagon Assessment/Plan: [age] year old woman with above past medical history & recent admission for likely post-ERCP pancreatitis who is readmitted with ongoing abdominal pain & weakness. ?? Today, Ms. Lion' condition is stable. She is tolerating her diet and her pain is being controlled with a stable PO regimen. She is appropriate for discharge with home VNA services. We will providea short course of PO Oxycodone for pain control with close PCP follow up and GI referral. ?? Rest of plan as detailed below. ?? #Elevated lipase #Mixed ERCP and gallstone pancreatitis, - Consult to Gen Surg, appreciate recs - GI consult, recs appreciated - CT A/P w/ oral contrast- as above - Low fat diet - d/c zosyn 3.375 mg Q6 - d/c LR 200cc/hr - Pain: oxycodone 5 mg Q8 hours (patient requests v low dose) - MRCP as above - Hida scan as above ?? #History of constipation - Sched'd docusate senna - PRN mag citrate - Miralax QD prn ?? #GETACHEW on CKD III, improving Concern for prerenal physiology in the setting of ongoing infection Recent GETACHEW attributed to IV contrast - Avoid nephrotoxic agents (HOLD lisinopril) - Goal MAP >65 - Daily BMP, Mg, phos ?#HTN - Hold home lisinopril 10 mg QD - Home HCTZ d/c'd during last admission ?? #NIDDM II Last A1c 7 - Sensitive SSI - Continue home gabapentin for neuropathy ?? #Outpatient meds: - Continue split dose metoprolol 12.5 mg Q6 - Continue home duloxetine ?? - Continue home remeron - Continue home protonix? #Housekeeping: - DVT PPx: SQH - GI PPx: PPI - Diet: clear liquids - Level of care: Med/Surg - Vitals: Q6 - Code Satus: FULL, daughter is DPOA Ghazalawalter Bragg MD PGY - 1, Internal Medicine 02/03/2021 * Aislinn Grant RN - 02/02/2021 6:42 PM EDT OUTCOME EVALUATION NOTE: OUTCOME SUMMARY: PT is A&Ox4. VSS on RA. Complaining of neck pain today. 1 time robaxin given with good effect. Plan to dc home in the morning. Safety maintained. Will continue to monitor and notify MD of any changes. PLAN MOVING FORWARD: DC in the AM INDIVIDUALIZED FALL PREVENTION INTERVENTIONS: Patient-specific fall risk factors per assessment: [current deficits]: Generalized weakness Assistance [level of assistance required for transfers and ambulation]: IND Supervision [direct monitoring required during toileting and ADLs]: IND Surveillance [continuous indirect monitoring]: Masimo on. Bed in low locked position. Call cunningham within reach. Purposeful rounding. Patient-specific fall prevention interventions for sensory deficits provided, if applicable: [X] Yes CPG GOAL OUTCOME EVALUATION: * Annabel Brown DT - 02/02/2021 11:45 AM EDT Nutrition Services Note - Low Nutrition Acuity Toyin Lion is a 65 y.o. female Reason for intervention: diet advancement Nutrition Plan: Continue current diet. Monitor weight. Encourage good oral intake. Support and encouragement provided. Pt reported a fair appetite, no intakes are currently noted at this time. She did report an increase in her GERD symptoms at this time, she is currently ordered for TUMS and using GERD eating strategies to decrease discomfort. Declined need for low fat diet education at this time. Pt declined offerof supplements/ high protein snacks. Nutrition to follow up and monitor. Active Orders Diet 45 gm Fat Restricted diet (Low Fat) Frequency: Effective Now Number of Occurrences: Until Specified Admit Weight: 87.45 kg Estimated body mass index is 35.87 kg/m?? as calculated from the following: Height as of this encounter: 160 cm (5' 3). Weight as of this encounter: 91.9 kg (202 lb 8 oz). Wt Readings from Last 5 Encounters: 01/29/21 91.9 kg (202 lb 8 oz) 01/17/21 76.7 kg (169 lb) 06/07/20 74.2 kg (163 lb 9.6 oz) 04/12/20 79 kg (174 lb 2.6 oz) 05/25/14 85.3 kg (188 lb) Weight loss: none Appetite: Fair (25%-50%) Food allergies:no known food allergies Chewing/Swallowing difficulty: none Nausea/Vomiting: no nausea Last Bowel Movement: 02/01/21 Patient education / questions: all nutrition related questions answered at this time Nutrition services to follow weekly through hospital course unless consulted in the interim. JAZMIN Edmondson Pager: [phone] * Freddie Montes MD - 02/02/2021 8:47 AM EDT Inpatient Medicine Progress Note Hospital Day 5 days Active Hospital Problems Diagnosis ??? Pancreatitis Resolved Hospital Problems No resolved problems to display. Patient ID: Toyin Lion is a 65 y.o. 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 24 Hour Events/Subjective: - NAEO/AVSS - Tolerating diet - Still requiring oxy - off IVF Vitals: Last value Range last 24 hrs Temperature Temp: 36.5 ??C (97.7 ??F) Temp: [36.4 ??C (97.6 ??F)-37.1 ??C (98.8 ??F)] Heart Rate Heart Rate: 96 Heart Rate: [90-96] Blood Pressure BP: 154/82 BP: (119-154)/(63-82) Respiratory Rate Resp: 20 Resp: [16-20] SpO2 SpO2: 94 % SpO2: [93 %-99 %] Ins/Outs: Intake/Output Summary (Last 24 hours) at 02/02/2021 0851 Last data filed at 02/02/2021 0400 Gross per 24 hour Intake 3377 ml Output 200 ml Net 3177 ml Patient Vitals for the past 168 hrs: Weight 01/29/21 1641 91.9 kg (202 lb 8 oz) 01/28/21 1921 87.5 kg (192 lb 12.8 oz) Physical Exam: Gen: Alert & oriented x3, NAD, well nourished, appears fatgiued and unwell. HEENT: PERRLA, EOMI, no conjunctival injection, no icterus CV: Distant heart sounds, appears regular with a normal rate, no obvious M/R/G Pulm: Normal respiratory effort, CTA with good air entery bilaterally, no rales/rhonchi/wheezes Abd: Tenderness without rebound or guarding, most prominent in the RUQ without tymapny. Normoactivebowel sounds. Ext: 1-2+ edema int he bilateral lower extremities Neuro: Grossly intact, moving all four extremities. Skin: Warm, dry, no rashes. Labs: Recent Labs 02/02/2122502/01/2115 01/31/21 0620 WBC 14.4* 18.7* 18.1* HGB 7.6* 7.9* 8.3* PLATELET 185 207 165 Recent Labs 02/02/2122502/01/2115 01/31/21 06 NA 134* 133* 132* K 4.6 4.4 4.7 CL 102 101 101 CO2 20* BUN 30* 32* 41* CREATININE 1.18 1.27* 1.46* Recent Labs 02/02/2122502/01/2115 01/31/21 0620 01/27/21 0335 CALCIUM 8.1* 8.3* 8.1* 8.4* MAGNESIUM -- -- -- 0.77 Recent Labs 02/02/2122502/01/2115 01/31/21 0620 01/28/21 195 AST 52* 58* 63* 66* ALT 33* 37* 42* 43* ALKPHOS 223* 255* 250* 269* BILITOT 0.6 0.8 0.8 1.0 BILIDIR -- -- -- 0.6* No results for input(s): TROPONINT, CK in the last 168 hours. No results for input(s): PHART, MZA3BCT, PO2ART, MTZ4WSW in the last 168 hours. Inpatient Medications: Scheduled Meds: ??? lidocaine 3 patch Transdermal Q24H And ??? lidocaine 3 patch Transdermal Q24H ??? polyethylene glycoL (MIRALAX) oral powder 17 g Oral Daily ??? DULoxetine DR 30 mg Oral Daily ??? gabapentin 100 mg Oral Daily at Noon ??? gabapentin 200 mg Oral BID ??? metoprolol tartrate 12.5 mg Oral Q6H ??? mirtazapine 7.5 mg Oral Nightly ??? pantoprazole EC 40 mg Oral Daily ??? sodium chloride 0.9 % (flush) 5 mL Intravenous BID ??? heparin (porcine) 5,000 Units Subcutaneous Q8H BASIL ??? senna-docusate 2 tablet Oral BID ??? insulin lispro 1-5 Units Subcutaneous TID AC Continuous Infusions: PRN Meds:.oxyCODONE OR HYDROmorphone, camphor-methyl salicyl-menthol, famotidine, ondansetron, prochlorperazine, sodium chloride 0.9 % (flush), lidocaine, magnesium hydroxide, melatonin, calcium carbonate, glucose 40% oral geL OR dextrose 10% OR glucagon Assessment/Plan: [age] year old woman with above past medical history & recent admission for likely post-ERCP pancreatitis who is readmitted with ongoing abdominal pain & weakness. ?? Today, Ms. Lion' condition is stable. She is tolerating her diet and her pain is being controlled with a stable PO regimen. She appears to be approaching discharge. Given her re-presentation, we will continue to monitor her today for stability and plan to d/c tomorrow. ?? Rest of plan as detailed below. ?? #Elevated lipase #Mixed ERCP and gallstone pancreatitis, - Consult to Gen Surg, appreciate recs - GI consult, recs appreciated - CT A/P w/ oral contrast- as above - Low fat diet - d/c zosyn 3.375 mg Q6 - d/c LR 200cc/hr - Pain: oxycodone 5 mg Q8 hours (patient requests v low dose) or IV dilaudid 0.4mg - MRCP as above - Hida scan as above ?? #History of constipation - Sched'd docusate senna - PRN mag citrate - Miralax QD prn ?? #GETACHEW on CKD III- improving Concern for prerenal physiology in the setting of ongoing infection Recent GETACHEW attributed to IV contrast - Avoid nephrotoxic agents (HOLD lisinopril) - Goal MAP >65 - Daily BMP, Mg, phos ?#HTN - Hold home lisinopril 10 mg QD - Home HCTZ d/c'd during last admission ?? #NIDDM II Last A1c 7 - Sensitive SSI - Continue home gabapentin for neuropathy ?? #Outpatient meds: - Continue split dose metoprolol 12.5 mg Q6 - Continue home duloxetine ?? - Continue home remeron - Continue home protonix? #Housekeeping: - DVT PPx: SQH - GI PPx: PPI - Diet: clear liquids - Level of care: Med/Surg - Vitals: Q6 - Code Satus: FULL, daughter is ODILIA Frazier MD [facility] PGY - 3, Internal Medicine 02/02/2021 Associated attestation - Travis Callahan MD - 02/02/2021 1:10 PM EDT Attending Attestation Please see Dr [...] of two midnights or is on the [facility] inpatient only procedure list (status C) due to: uncontrolled pain requiring titration of medications to achieve optimal effect and to minimize immediate or severe side effects The patient is a 65 year old woman with SIMMONS cirrhosis, T2DM, CKD III, chronic RUQ pain despite prior CCY who recently underwent ERCP with failed retrieval of stone in cystic duct remnant that was complicated by acute pancreatitis; despite initial improvement she represented to the hospital less than 24 hours after discharge with ongoing epigastric pain and was found to have a pancreatic pseudocyst. Today she is tolerating a diet with improvement in serum Cr and WBC. Given recent readmission we will monitor her for one additional day to ensure her pain is well controlled and plan for discharge home in AM. Principal Problem: Pancreatitis Active Problems: Cystic duct calculus Pancreatic pseudocyst Travis Callahan MD 02/02/2021 1:10 PM * Li Day RN - 02/01/2021 5:14 PM EDT OUTCOME EVALUATION NOTE: OUTCOME SUMMARY: Assumed care of patient. AOx4. VSS on RA. Pt c/o 05/20 RUQ/RLQ/RFlank pain. PRN oxycodone given x1 with good effect. Meds given per order. Bowel meds held for loose stool. LR continuous infusion discontinued. Pain medication titrated down. Diet advanced to 45g fat restricted diet. Tolerating food well. No n/v. Pt tired and sleeping most of day, stating she didn't sleep well the night before. PLAN MOVING FORWARD: D/c planning. INDIVIDUALIZED FALL PREVENTION INTERVENTIONS: Patient-specific fall risk factors per assessment: [current deficits]: Generalized weakness. Assistance [level of assistance required for transfers and ambulation]: Independent Supervision [direct monitoring required during toileting and ADLs]: Ears on Surveillance [continuous indirect monitoring]: Call cunningham within reach. Hourly rounding. Room near nursing station. Bed alarm off. Patient-specific fall prevention interventions for sensory deficits provided, if applicable: [X] No CPG GOAL OUTCOME EVALUATION: * Trish Cast - 02/01/2021 11:16 AM EDT GASTROENTEROLOGY & HEPATOLOGY INPATIENT PROGRESS NOTE ID: Toyin Lion is a 65 y.o. female w/ a hx of biopsy proven SIMMONS cirrhosis, HTN, HLD, DM2, GERD, hx TIA, CKD stage 3b and s/p CCY in 2016 at [facility] with recurrent RUQ pain episodes since, presenting with recent choledocholithiasis s/p ERCP 01/17/21 c/b pancreatitis presenting with abdominal painand suspected sloane-pancreatic fluid collection. Interval History: --HDS, afebrile overnight without any events --WBCs stable at 18 --Reports improved abdominal pain today. Able to tolerate clears without worsening abd pain or nausea --Receiving po oxycodone for pain ROS: 14-system ROS reviewed and negative except as above PMH and PFSH reviewed and up to date as of initial consult note dated 01/29/21 Active Hospital Problem List Patient Active Problem List Diagnosis Code GERD (gastroesophageal reflux disease) K21.9 Environmental allergies Z91.09 Diabetes mellitus type 2, uncomplicated E11.9 Hx-TIA (transient ischemic attack) Z86.73 Hyperlipidemia E78.5 Hypertension I10 Restless legs syndrome (RLS) G25.81 CKD (chronic kidney disease) N18.9 Delirium R41.0 Toxic metabolic encephalopathy G92 Acute cystitis N30.00 Anxiety F41.9 Diabetic neuropathy E11.40 Nonalcoholic steatohepatitis K75.81 Cystic duct calculus K80.20 RUQ pain R10.11 Acute pancreatitis K85.90 PONV (postoperative nausea and vomiting) R11.2, Z98.890 Pancreatitis K85.90 Scheduled Meds: lidocaine 3 patch Transdermal Q24H And lidocaine 3 patch Transdermal Q24H polyethylene glycoL (MIRALAX) oral powder 17 g Oral Daily DULoxetine DR 30 mg Oral Daily gabapentin 100 mg Oral Daily at Noon gabapentin 200 mg Oral BID metoprolol tartrate 12.5 mg Oral Q6H mirtazapine 7.5 mg Oral Nightly pantoprazole EC 40 mg Oral Daily sodium chloride 0.9 % (flush) 5 mL Intravenous BID heparin (porcine) 5,000 Units Subcutaneous Q8H BASIL senna-docusate 2 tablet Oral BID insulin lispro 1-5 Units Subcutaneous TID AC Continuous Infusions: PRN Meds:.oxyCODONE OR HYDROmorphone, camphor-methyl salicyl-menthol, famotidine, ondansetron, prochlorperazine, sodium chloride 0.9 % (flush), lidocaine, magnesium hydroxide, melatonin, calcium carbonate, glucose 40% oral geL OR dextrose 10% OR glucagon Physical Examination Vitals: 01/31/21 2313 02/01/21 0556 02/01/21 0645 02/01/21 1109 BP: (!) 167/92 175/89 165/77 119/65 BP Location (NBP): Right arm Right arm Right arm Right arm Patient Position: Lying Lying Lying Pulse: Resp: 20 16 Temp: 37.5 ??C (99.5 ??F) 37.1 ??C (98.8 ??F) TempSrc: Oral Oral SpO2: 93% 95% (!) 89% 93% Weight: Height: PHYSICAL EXAM GENERAL: NAD, appears comfortable sitting up in chair HEENT: AT/NC, sclerae anicteric, dry moist mucous membranes CHEST: CTA CARDIAC: RRR, normal S1/S2, no appreciable murmurs ABDOMEN: Soft, mildly distended, mildly tender to RUQ, non-tender in epigastric region. No guardingor rebound. NBS. EXT: Warm, no edema NEURO: Grossly intact, moves all extremities SKIN: No jaundice Pertinent Recent labs CBC Lab Results Component Value Date WBC 18.7 (H) 02/01/2021 Hemoglobin 7.9 (L) 02/01/2021 Hematocrit 23.9 (L) 02/01/2021 Platelets 207 02/01/2021 Lab Results Component Value Date Sodium 133 (L) 02/01/2021 Potassium 4.4 02/01/2021 Chloride 101 02/01/2021 CO2 23 02/01/2021 BUN 32 (H) 02/01/2021 Creatinine 1.27 (H) 02/01/2021 LFT's Lab Results Component Value Date Alk Phos 255 (H) 02/01/2021 AST 58 (H) 02/01/2021 Albumin 2.2 (L) 02/01/2021 Total Bilirubin 0.8 02/01/2021 ALT 37 (H) 02/01/2021 Total Protein 6.3 02/01/2021 IMAGING: Reviewed in eD 01/29/2021 MRCP IMPRESSION 1. 2 small intraluminal signal voids seen in the common bile duct without biliary ductal dilatation. Possible retained calculi. 2. Pancreas: Mild diffuse edema. No pancreatic ductal dilatation. 3. Large peripherally enhancing partially loculated fluid collection surrounding the pancreatic head and uncinate process, as described above; possible pseudocyst, however, cannot exclude an abscess. 01/29/2021 HIDA IMPRESSION Normal hepatic function with no evidence of biliary leak. 01/29/21 CT A/P IMPRESSION * Increased peripancreatic and periduodenal tracking into the Fallon's pouch and the pelvis in the setting of known pancreatitis. Evaluation of the pancreatic parenchyma is limited due to lack of IV contrast. * Interval loculation of an enlarged 5.5 x 5.5 x 4.1 cm thick-walled collection anterior to the hepatic flexure (series 3 image 70). Differential considerations include pseudocyst (more likely), walled off necrosis, and abscess. * Unchanged gallstone in the gallbladder/cystic duct remnant. * Thickening of the duodenum, likely reactive. ENDOSCOPY: Reviewed in eD 01/17/21 ERCP Impression: - A single small cholecystolithiasis was found adherent to the wall of the gallbladder remanent - Ductoscopy was performed and attempts to disrupt and remove the stone with EHL, and Spy Basket and Spy snare were unsuccessful. Recommendation: - Discharge patient to home. - Clear liquid diet for 2 hours. - Observe patient's clinical course. - Return to referring physician and consider referral to surgery for completion cholecystectomy. IMPRESSION: Toyin Lion is a 65 y.o. female w/ a hx of biopsy proven SIMMONS cirrhosis, HTN, HLD, DM2, GERD, hx TIA, CKD stage 3b and s/p CCY in 2016 at [facility] with recurrent RUQ pain episodes since, presenting with recent choledocholithiasis s/p ERCP 01/17/21 c/b pancreatitis presenting with abdominal pain andsuspected sloane-pancreatic fluid collection. CT findings most consistent with pancreatitis complications of sloane-pancreatic collecting vs. Acutenecrotizing collection/evolving WON. At this time, she is presenting from acute episode pancreatitis and would recommend avoiding any drainage of collection until more time has passed to evaluate if this will organize or resolve. Her HIDA scan is reassuring without evidence of bile leak; it appearsthat her choledocholithiasis persists based on MRCP after unsuccessful ERCP, in addition to known cystic duct stone; question of whether new stones are now seen which could also further explain her acute worsening of pain since discharge, as it could also be contributing to her pancreatitis. Agree her management should include completion CCY but in this acute inflammatory period may want to monitor until this improves. Continue treatment for acute pancreatitis from recent ERCP +/- gallstones. Overall she appears clinically improved with improving abdominal pain and good tolerated to clear diet. RECOMMENDATIONS: -Advance diet to low fat -OK to stop IVF if taking po fluids -Monitor UO -Analgesia per primary team -Appreciate General Surgery recs -No role endoscopic intervention at this time This case was discussed with Dr. Allison Cast MD Gastroenterology PGY-6 02/01/2021 11:17 AM Pager #[phone] Associated attestation - Brian Cooper MD - 02/01/2021 11:35 AM EDT I have seen and evaluated the patient with Dr. Cast. I have reviewed the fellow's history during the encounter and I agree with the details as written above. My physical examination confirms the above findings. The assessment and plan were formulated in discussion with me at the time of the encounter and I agree with them as documented. Brian Cooper MD, [employer] Aidesewer separation designer Section of Gastroenterology and Hepatology * Lisa Valles MD - 02/01/2021 7:47 AM EDT Inpatient Medicine Progress Note Hospital Day 4 days Active Hospital Problems Diagnosis ??? Pancreatitis Resolved Hospital Problems No resolved problems to display. Patient ID: Toyin Lion is a 65 y.o. 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 24 Hour Events/Subjective: - pain control - Yesterday, advanced to clear fluids - NAEO - This AM, patient continues to have abdominal pain which is better controlled on oxy. Vitals: Last value Range last 24 hrs Temperature Temp: 37.5 ??C (99.5 ??F) Temp: [36.3 ??C (97.4 ??F)-37.5 ??C (99.5 ??F)] Heart Rate Heart Rate: 97 Heart Rate: [97] Blood Pressure BP: 165/77 BP: (143-175)/(68-92) Respiratory Rate Resp: 20 Resp: [16-20] SpO2 SpO2: (!) 89 % SpO2: [89 %-95 %] Ins/Outs: Intake/Output Summary (Last 24 hours) at 02/01/2021 0949 Last data filed at 02/01/2021 0913 Gross per 24 hour Intake 7717 ml Output 1000 ml Net 6717 ml Patient Vitals for the past 168 hrs: Weight 01/29/21 1641 91.9 kg (202 lb 8 oz) 01/28/21 1921 87.5 kg (192 lb 12.8 oz) Physical Exam: Gen: Alert & oriented x3, NAD, well nourished, appears fatgiued and unwell. HEENT: PERRLA, EOMI, no conjunctival injection, no icterus CV: Distant heart sounds, appears regular with a normal rate, no obvious M/R/G Pulm: Normal respiratory effort, CTA with good air entery bilaterally, no rales/rhonchi/wheezes Abd: Tenderness without rebound or guarding, most prominent in the RUQ without tymapny. Normoactivebowel sounds. Ext: 1-2+ edema int he bilateral lower extremities Neuro: Grossly intact, moving all four extremities. Skin: Warm, dry, no rashes. Labs: Recent Labs 02/01/21 0615 01/31/21 0620 01/30/21 0822 WBC 18.7* 18.1* 20.4* HGB 7.9* 8.3* 9.0* PLATELET 207 165 173 Recent Labs 02/01/21 0615 01/31/21 0620 01/30/21 0822 NA 133* 132* 132* K 4.4 4.7 4.6 CL 101 101 101 CO2 23 20* 23 BUN 32* 41* 40* CREATININE 1.27* 1.46* 1.82* Recent Labs 02/01/21 0615 01/31/21 0620 01/30/21 0822 01/27/21 0335 01/26/21 0423 CALCIUM 8.3* 8.1* 8.3* 8.4* 8.8 MAGNESIUM -- -- -- 0.77 0.98 Recent Labs 02/01/21 0615 01/31/21 0620 01/30/21 0822 01/28/21 1955 AST 58* 63* 87* 66* ALT 37* 42* 49* 43* ALKPHOS 255* 250* 273* 269* BILITOT 0.8 0.8 1.0 1.0 BILIDIR -- -- -- 0.6* No results for input(s): TROPONINT, CK in the last 168 hours. No results for input(s): PHART, KZP0CLX, PO2ART, TOI3BHK in the last 168 hours. Inpatient Medications: Scheduled Meds: ??? lidocaine 3 patch Transdermal Q24H And ??? lidocaine 3 patch Transdermal Q24H ??? polyethylene glycoL (MIRALAX) oral powder 17 g Oral Daily ??? DULoxetine DR 30 mg Oral Daily ??? gabapentin 100 mg Oral Daily at Noon ??? gabapentin 200 mg Oral BID ??? metoprolol tartrate 12.5 mg Oral Q6H ??? mirtazapine 7.5 mg Oral Nightly ??? pantoprazole EC 40 mg Oral Daily ??? sodium chloride 0.9 % (flush) 5 mL Intravenous BID ??? heparin (porcine) 5,000 Units Subcutaneous Q8H BASIL ??? senna-docusate 2 tablet Oral BID ??? insulin lispro 1-5 Units Subcutaneous TID AC Continuous Infusions: PRN Meds:.camphor-methyl salicyl-menthol, famotidine, oxyCODONE OR HYDROmorphone, ondansetron, prochlorperazine, sodium chloride 0.9 % (flush), lidocaine, magnesium hydroxide, melatonin, calcium carbonate, glucose 40% oral geL OR dextrose 10% OR glucagon Assessment/Plan: [age] year old woman with above past medical history & recent admission for likely post-ERCP pancreatitis who is readmitted with ongoing abdominal pain & weakness. ?? Persistent lipase elevation, leukocytosis & ongoing abdominal pain consistent with incompletelyresolved pancreatitis, new sloane-pancreatic fluid collection, pseudocyst versus pancreatic necrosis.No evidence of necrosis. Otherwise plan for IVF resuscitation and pain management. Zosyn stopped yesterday, as no signs of infection. General surgery will consider surgical intervention after inflamat ion goes down (likely in 6-12 weeks). Per GI- stopping fluids and advancing diet. Plan to monitor pain and d/c opioids before discharging home. Decreased opioids to q8h prn in preparation for discharge. ?? Rest below. ?? #Elevated lipase #Mixed ERCP and gallstone pancreatitis, - Consult to Gen Surg, appreciate recs - GI consult, recs appreciated - CT A/P w/ oral contrast- as above - Low fat diet - d/c zosyn 3.375 mg Q6 - d/c LR 200cc/hr - Pain: oxycodone 5 mg Q8 hours (patient requests v low dose) or IV dilaudid 0.4mg - MRCP as above - Hida scan as above ?? #History of constipation - Sched'd docusate senna - PRN mag citrate - Miralax QD prn ?? #GETACHEW on CKD III- improving Concern for prerenal physiology in the setting of ongoing infection Recent GETACHEW attributed to IV contrast - Avoid nephrotoxic agents (HOLD lisinopril) - Goal MAP >65 - Daily BMP, Mg, phos - IVF as above ?#HTN - Hold home lisinopril 10 mg QD - Home HCTZ d/c'd during last admission ?? #NIDDM II Last A1c 7 - Sensitive SSI - Continue home gabapentin for neuropathy ?? #Outpatient meds: - Continue split dose metoprolol 12.5 mg Q6 - Continue home duloxetine ?? - Continue home remeron - Continue home protonix? #Housekeeping: - DVT PPx: SQH - GI PPx: PPI - Diet: clear liquids - Level of care: Med/Surg - Vitals: Q6 - Code Satus: FULL, daughter is DPMANUEL Pérezdayday Valles MD PGY - 1, Internal Medicine 02/01/2021 Associated attestation - Travis Callahan MD - 02/01/2021 9:04 PM EDT Attending Attestation Please see Dr Valles's note for details of the patient history [...] of two midnights or is on the [facility] inpatient only procedure list (status C) due to: monitoring of fluid status given an inability to regulate fluid balance and the need for administration or restriction of fluids 65 year old woman with post-ERCP pancreatitis complicated by possible pancreatitic pseudocyst. Today abdominal pain improving. WBC stable, GETACHEW improving. We will advance her diet, stop IVF, and wean opiate pain medication. Active Problems: Pancreatitis Travis Callahan MD 02/01/2021 9:01 PM * Annabel Brown DT - 01/31/2021 8:19 AM EDT Nutrition NPO Note Toyin Lion is a 65 y.o. female Patient has been on NPO diet only for 4 days, increasing risk for malnutrition. If clinically unable to advance oral diet consider consult to Nutrition Services to evaluate for potential nutrition support. Visualized patient for overt cachectic appearance: no Active Orders Diet NPO diet (Give Meds) Frequency: Effective Now Number of Occurrences: Until Specified Admit Weight: 87.45 kg Estimated body mass index is 35.87 kg/m?? as calculated from the following: Height as of this encounter: 160 cm (5' 3). Weight as of this encounter: 91.9 kg (202 lb 8 oz). Wt Readings from Last 5 Encounters: 01/29/21 91.9 kg (202 lb 8 oz) 01/17/21 76.7 kg (169 lb) 06/07/20 74.2 kg (163 lb 9.6 oz) 04/12/20 79 kg (174 lb 2.6 oz) 05/25/14 85.3 kg (188 lb) Weight loss: none JAZMIN Edmondson Pager: [phone] * Lisa Valles MD - 01/31/2021 7:53 AM EDT Inpatient Medicine Progress Note Hospital Day 3 days Active Hospital Problems Diagnosis ??? Pancreatitis Resolved Hospital Problems No resolved problems to display. Patient ID: Toyin Lion is a 65 y.o. 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 24 Hour Events/Subjective: - on fluids and pain control - Yesterday, not intervention at this time from GI and gen surg. Stopped zosyn. - NAEO - This AM, patient continues to have abdominal pain which is better controlled on oxy. Vitals: Last value Range last 24 hrs Temperature Temp: 36.3 ??C (97.4 ??F) Temp: [36.3 ??C (97.4 ??F)-36.9 ??C (98.4 ??F)] Heart Rate Heart Rate: 88 Heart Rate: [81-88] Blood Pressure BP: 168/86 BP: (130-168)/(60-86) Respiratory Rate Resp: 18 Resp: [14-20] SpO2 SpO2: 97 % SpO2: [94 %-98 %] Ins/Outs: Intake/Output Summary (Last 24 hours) at 01/31/2021 0753 Last data filed at 01/31/2021 0658 Gross per 24 hour Intake 980 ml Output 1275 ml Net -295 ml Patient Vitals for the past 168 hrs: Weight 01/29/21 1641 91.9 kg (202 lb 8 oz) 01/28/21 1921 87.5 kg (192 lb 12.8 oz) Physical Exam: Gen: Alert & oriented x3, NAD, well nourished, appears fatgiued and unwell. HEENT: PERRLA, EOMI, no conjunctival injection, no icterus CV: Distant heart sounds, appears regular with a normal rate, no obvious M/R/G Pulm: Normal respiratory effort, CTA with good air entery bilaterally, no rales/rhonchi/wheezes Abd: Tenderness without rebound or guarding, most prominent in the RUQ without tymapny. Normoactivebowel sounds. Ext: 1-2+ edema int he bilateral lower extremities Neuro: Grossly intact, moving all four extremities. Skin: Warm, dry, no rashes. Labs: Recent Labs 01/31/21 0620 01/30/21 0801/29/21 1245 WBC 18.1* 20.4* 18.3* HGB 8.3* 9.0* 9.1* PLATELET 165 173 152 Recent Labs 01/31/21 0620 01/30/21 0822 01/29/21 1245 NA 132* 132* 132* K 4.7 4.6 4.8 CL 101 101 100 CO2 20* 23 23 BUN 41* 40* 39* CREATININE 1.46* 1.82* 1.84* Recent Labs 01/31/21 0620 01/30/21 0822 01/29/21 1245 01/27/21 0335 01/26/21 0423 01/25/21 0435 CALCIUM 8.1* 8.3* 8.5 8.4* 8.8 8.6 MAGNESIUM -- -- -- 0.77 0.98 0.66* Recent Labs 01/31/21 0620 01/30/21 0822 01/29/21 1245 01/28/21 1955 AST 63* 87* 80* 66* ALT 42* 49* 47* 43* ALKPHOS 250* 273* 263* 269* BILITOT 0.8 1.0 1.2 1.0 BILIDIR -- -- -- 0.6* No results for input(s): TROPONINT, CK in the last 168 hours. No results for input(s): PHART, SNA0MBZ, PO2ART, LAC3AQK in the last 168 hours. Inpatient Medications: Scheduled Meds: ??? polyethylene glycoL (MIRALAX) oral powder 17 g Oral Daily ??? DULoxetine DR 30 mg Oral Daily ??? gabapentin 100 mg Oral Daily at Noon ??? gabapentin 200 mg Oral BID ??? metoprolol tartrate 12.5 mg Oral Q6H ??? mirtazapine 7.5 mg Oral Nightly ??? pantoprazole EC 40 mg Oral Daily ??? sodium chloride 0.9 % (flush) 5 mL Intravenous BID ??? heparin (porcine) 5,000 Units Subcutaneous Q8H BASIL ??? senna-docusate 2 tablet Oral BID ??? insulin lispro 1-5 Units Subcutaneous TID AC ??? lidocaine 1 patch Transdermal Q24H And ??? lidocaine 1 patch Transdermal Q24H Continuous Infusions: ??? lactated Ringers 200 mL/hr (01/31/21 0752) PRN Meds:.oxyCODONE OR HYDROmorphone, ondansetron, prochlorperazine, sodium chloride 0.9 % (flush), lidocaine, magnesium hydroxide, melatonin, calcium carbonate, glucose 40% oral geL OR dextrose 10% OR glucagon Assessment/Plan: [age] year old woman with above past medical history & recent admission for likely post-ERCP pancreatitis who is readmitted with ongoing abdominal pain & weakness. ?? Persistent lipase elevation, leukocytosis & ongoing abdominal pain consistent with incompletelyresolved pancreatitis, new sloane-pancreatic fluid collection, pseudocyst versus pancreatic necrosis.No evidence of necrosis. Otherwise plan for IVF resuscitation and pain management. Zosyn stopped yesterday, as no signs of infection. General surgery will consider surgical intervention after inflamat ion goes down (likely in 6-12 weeks). GI recommends supportive care at this time. Will continue with supportive care at this time. ?? Rest below. ?? #Elevated lipase #Mixed ERCP and gallstone pancreatitis, - Consult to Gen Surg, appreciate recs - CT A/P w/ oral contrast- as above - Maintain NPO status for now- can advanced to low-fat diet - d/c zosyn 3.375 mg Q6 - For possible residual pancreatitis: Continue goal directed fluid management w/ LR 200cc/hr - Pain: oxycodone 5 mg Q4 hours (patient requests v low dose) or IV dilaudid 0.4mg - GI consult, recs appreciated - MRCP as above - Hida scan as above ?? #History of constipation - Sched'd docusate senna - PRN mag citrate - Miralax QD prn ?? #GETACHEW on CKD III- improving Concern for prerenal physiology in the setting of ongoing infection Recent GETACHEW attributed to IV contrast - Avoid nephrotoxic agents (HOLD lisinopril) - Goal MAP >65 - Daily BMP, Mg, phos - IVF as above ?#HTN - Hold home lisinopril 10 mg QD - Home HCTZ d/c'd during last admission ?? #NIDDM II Last A1c 7 - Carb control diet when taking PO again - Sensitive SSI - Continue home gabapentin for neuropathy ?? #Outpatient meds: - Continue split dose metoprolol 12.5 mg Q6 - Continue home duloxetine ?? - Continue home remeron - Continue home protonix? #Housekeeping: - DVT PPx: SQH - GI PPx: PPI - Diet: NPO - Level of care: Med/Surg - Vitals: Q6 - Code Satus: FULL, daughter is DPMANUEL Lisa Vallse MD PGY - 1, Internal Medicine 01/31/2021 Associated attestation - Maxim Motley MD - 01/31/2021 3:35 PM EDT I have seen the patient and reviewed 's history and I agree with the details as written. I have personally reviewed and interpreted vital signs, lab and imaging studies. The assessment and plan were formulated in discussion with me and I agree with them as documented. 65 y/o female with listed history most pertinent for hx cholecystectomy, recent admission for ERCP with unsuccessful retrieval of a retained stone c/b post ERCP pancreatitis now readmitted with abdominal pain, nausea, vomiting, leukocytosis and a new sloane-pancreatic fluid collection consistent withpseudocyst vs pancreatic necrosis seen on admission CT. She has now undergone HIDA scan and MRCP. HIDA is negative for a biliary leak and MRCP reveals possible CBD calculi. She is clinically improving however continues to require pain and nausea control. Case discussed with GI who do not recommend repeat endoscopic intervention until follow-up for resolution of fluid collection vs WON. General surgery also recommends considering completion cholecystectomy in 6-12 weeks time as procedure would be morbid in an active inflammatory state. Will continue conservative management with fluids, pain control and anti-emetics. She reports a returning appetitetoday so we will trial a clear liquid diet. DVT Prophylaxis Heparin PCP Asia Gil DO Attestation IPI Certification I certify that I am a [facility] credentialed attending provider with admitting privileges and that the patient meets or has met medical necessity to require an inpatient IPI level of care meeting a minimumof two midnights or is on the [facility] inpatient only procedure list (status C) due to: Acute pancreatitis requiring IVF, pain control and anti-emetics MAXIM MOTLEY MD * Massimo Ndiaye MD - 01/31/2021 7:16 AM EDT [facility] Acute Care Surgery Consult Progress Note Consult Reason: Retained cystic stone in setting of abdominal pain and pancreatitis HPI: Toyin Lion is a 65 y.o. female w/ a hx of biopsy proven SIMMONS cirrhosis,??HTN, HLD, DM2, GERD, hx TIA, CKD stage 3b and s/p CCY in 2016 at [facility] with recurrent RUQ pain episodes since. She said she has had multiple workups without resolution and a few weeks ago, she had the pain return and u nderwent an US which revealed per documentation: retained stone in a cystic duct remnant vs. infundibulum with surrounding wall thickening. We don't have the images in our system. Other recent workup includes EGD/colo in December 2020 which by report was only notable for some benign polyps in colon,EGD normal. She was recently admitted to hospital medicine at [facility] from 01/17 to 01/27 after she underwent what was scheduled as an outpatient ERCP to attempt stone retrieval. Unfortunately, while they found a single small cholecystolithiasis adherent to the wall of the cystic stump/retained infundibulum, attempts to remove the stone were unsuccessful. Post procedure, she unfortunately developed a post-ERCP pancreatitis which was diagnosed on CT scan and with a lipase >3,000 on post-procedure day and post-op day 1 and then on 01/19 (post day 2), it was 891. She was managed with fluid resuscitation and pain control. She had an GETACHEW post CT w/ IV contrast. She was hospitalized for 10 days and notably her WBC had been uptrending the days prior to discharge (15.2 on 01/25, 21.8 on 01/26, 18.6 on 01/27). She also had a rising Cr on 01/27 but she demanded to be discharged despite recommendations to be monitored. She was discharged to home on 01/27 and per the patient, her daughter called GI today because she was so swollen and she was told to come to a local ED. She went to [facility] where her lipase was report edly 3300, WBC 22k and she was given zosyn and transferred to [facility] ED. General surgery was consulted for assistance in management considering she still c/o RUQ pain and the cystic stump/retained infundibulum. She denied any fever or recent sick contacts. Reported a bowel movement the day prior, passing flatus, and tolerating a diet. 24 Hour Events/ Subjective: - Patient continues to endorse right sided abdominal pain which she reports is slightly improved today - Is now passing gas, has had a bowel movement - WBC today 18.1 from 20.4 Physical Exam: Temp: [36.3 ??C (97.4 ??F)-36.9 ??C (98.4 ??F)] Heart Rate: [81-88] Resp: [14-20] BP: (130-168)/(60-86) SpO2: [94 %-98 %] Heart Rate from SpO2: [84 bpm-99 bpm] Gen: seen sitting in chair, A0x3 HEENT: KIERA, MMM CVS: RRR Pulm: CTAB, breathing without difficulty on RA GI: softly distended w/ edema, TTP in RUQ with an area of firmness in the deep tissues, non tympanitic, old lap port scars well healed, small bruise in right mid abdomen likely from an injection site, no masses/hernias MSK: WWP, 2+ edema/anasarca Vascular: palp pulses Neuro: moving all 4 extremities spontaneously, nonfocal Data independently reviewed: Recent Results (from the past 24 hour(s)) CMP w/fasting Glucose Result Value Ref Range Glucose Fasting 94 65 - 99 mg/dL BUN 40 (H) 8 - 18 mg/dL Creatinine 1.82 (H) 0.70 - 1.20 mg/dL Sodium 132 (L) 135 - 145 mmol/L Potassium 4.6 3.5 - 5.0 mmol/L Chloride 101 98 - 107 mmol/L CO2 23 22 - 31 mmol/L Anion Gap 8 5 - 15 mmol/L Calcium 8.3 (L) 8.5 - 10.5 mg/dL Total Protein 6.4 6.1 - 8.0 gm/dL Albumin 2.1 (L) 3.2 - 5.2 gm/dL AST 87 (H) 0 - 30 unit/L ALT 49 (H) 0 - 30 unit/L Alk Phos 273 (H) 35 - 105 unit/L Total Bilirubin 1.0 0.2 - 1.3 mg/dL Estimated GFR 28 (L) >=60 mL/min/1.73 m?? Lipase Result Value Ref Range Lipase 524 (H) 0 - 60 unit/L Hemogram Result Value Ref Range WBC 20.4 (H) 4.0 - 9.5 x10(3)/mcL RBC 2.92 (L) 4.00 - 5.21 x10(6)/mcL Hemoglobin 9.0 (L) 11.7 - 15.5 gm/dL Hematocrit 26.8 (L) 35.7 - 45.8 % MCV 91.8 82.6 - 94.4 fL MCH 30.8 27.1 - 32.0 pg MCHC 33.6 31.7 - 35.0 gm/dL Platelets 173 145 - 357 x10(3)/mcL RDWSD 43.5 37.0 - 46.0 fL RDWCV 13.0 11.5 - 14.1 % MPV 11.4 7.6 - 12.9 fL nRBC % Auto 0.0 % nRBC Abs Auto 0.000 0.000 - 0.000 x10(3)/mcL Differential, Automated Result Value Ref Range Neutrophils % 83.3 % Neutr Abs (ANC) 17.02 (H) 1 - 6 x10(3)/mcL Lymphocytes % 6.3 % Lymphocytes Abs 1.3 0.9 - 3.2 x10(3)/mcL Monocytes % 8.0 % Monocyte Abs 1.6 (H) 0.3 - 0.9 x10(3)/mcL Eosinophils % 0.2 % Eosinophils Abs 0.0 0.0 - 0.4 x10(3)/mcL Basophils % 0.1 % Basophils Abs 0.0 0.0 - 0.1 x10(3)/mcL Immature Gran % 2.10 % Anya Gran Abs 0.42 (H) 0.00 - 0.04 x10(3)/mcL Scan, Peripheral Blood Result Value Ref Range Plat Estimate Normal RBC Morphology Abnormal Hypochromia Slight POCT Glucose Result Value Ref Range POC Glucose 105 65 - 199 mg/dL POCT Glucose Result Value Ref Range POC Glucose 108 65 - 199 mg/dL POCT Glucose Result Value Ref Range POC Glucose 111 65 - 199 mg/dL CMP w/fasting Glucose Result Value Ref Range Glucose Fasting 108 (H) 65 - 99 mg/dL BUN 41 (H) 8 - 18 mg/dL Creatinine 1.46 (H) 0.70 - 1.20 mg/dL Sodium 132 (L) 135 - 145 mmol/L Potassium 4.7 3.5 - 5.0 mmol/L Chloride 101 98 - 107 mmol/L CO2 20 (L) 22 - 31 mmol/L Anion Gap 11 5 - 15 mmol/L Calcium 8.1 (L) 8.5 - 10.5 mg/dL Total Protein 6.1 6.1 - 8.0 gm/dL Albumin 2.1 (L) 3.2 - 5.2 gm/dL AST 63 (H) 0 - 30 unit/L ALT 42 (H) 0 - 30 unit/L Alk Phos 250 (H) 35 - 105 unit/L Total Bilirubin 0.8 0.2 - 1.3 mg/dL Estimated GFR 37 (L) >=60 mL/min/1.73 m?? Hemogram Result Value Ref Range WBC 18.1 (H) 4.0 - 9.5 x10(3)/mcL RBC 2.67 (L) 4.00 - 5.21 x10(6)/mcL Hemoglobin 8.3 (L) 11.7 - 15.5 gm/dL Hematocrit 24.9 (L) 35.7 - 45.8 % MCV 93.3 82.6 - 94.4 fL MCH 31.1 27.1 - 32.0 pg MCHC 33.3 31.7 - 35.0 gm/dL Platelets 165 145 - 357 x10(3)/mcL RDWSD 44.9 37.0 - 46.0 fL RDWCV 13.1 11.5 - 14.1 % MPV 11.4 7.6 - 12.9 fL nRBC % Auto 0.0 % nRBC Abs Auto 0.000 0.000 - 0.000 x10(3)/mcL Differential, Automated Result Value Ref Range Neutrophils % 84.6 % Neutr Abs (ANC) 15.36 (H) 1 - 6 x10(3)/mcL Lymphocytes % 6.7 % Lymphocytes Abs 1.2 0.9 - 3.2 x10(3)/mcL Monocytes % 6.7 % Monocyte Abs 1.2 (H) 0.3 - 0.9 x10(3)/mcL Eosinophils % 0.2 % Eosinophils Abs 0.0 0.0 - 0.4 x10(3)/mcL Basophils % 0.2 % Basophils Abs 0.0 0.0 - 0.1 x10(3)/mcL Immature Gran % 1.60 % Anya Gran Abs 0.29 (H) 0.00 - 0.04 x10(3)/mcL POCT Glucose Result Value Ref Range POC Glucose 103 65 - 199 mg/dL Imaging: CT w/ PO contrast (no IV) 01/28/21: IMPRESSION * Increased peripancreatic and periduodenal tracking into the Fallon's pouch and the pelvis in the setting of known pancreatitis. Evaluation of the pancreatic parenchyma is limited due to lack of IV contrast. * Interval loculation of an enlarged 5.5 x 5.5 x 4.1 cm thick-walled collection anterior to the hepatic flexure (series 3 image 70). Differential considerations include pseudocyst (more likely), walled off necrosis, and abscess. * Unchanged gallstone in the gallbladder/cystic duct remnant. * Thickening of the duodenum, likely reactive. HIDA 01/29/21: IMPRESSION Normal hepatic function with no evidence of biliary leak. MRCP 01/29/21: IMPRESSION 1. 2 small intraluminal signal voids seen in the common bile duct without biliary ductal dilatation. Possible retained calculi. 2. Pancreas: Mild diffuse edema. No pancreatic ductal dilatation. 3. Large peripherally enhancing partially loculated fluid collection surrounding the pancreatic head and uncinate process, as described above; possible pseudocyst, however, cannot exclude an abscess. ?? Impression: 65 y.o. comorbid female w/ SIMMONS cirrhosis,??HTN, HLD, DM2, GERD, TIA, CKD stage 3b and s/p CCY in 2016 c/b recurrent RUQ pain episodes since then with recently dx retained stone in likelycystic stump who underwent an unsuccessful ERCP attempt at stone retrieval on 01/17/21 at [facility] c/b post-ERCP pancreatitis followed by 10-day hospitalization discharged 01/28, now representing with worsening leukocytosis, elevated lipase, GETACHEW, ascites and abdominal pain concerning for worsening pancreatitis with possible acute sloane- pancreatic fluid collection vs. necrosis. On imaging, there is a small gallbladder stump that has a retained stone in it, most easily seen onERCP. She does appear to also possibly have stones in the common bile duct based on the MRCP. Nevertheless, given her pancreatitis, it would be best to wait at least 6 weeks and up to 3 months for her pancreatic inflammation to improve before intervening with a completion cholecystectomy. Recommendation: - Agree with aggressive IV fluid hydration, continued GI input - Blood cultures with NG x2 days - No plans for completion cholecystectomy at this time, will wait 6-12 weeks until acute inflammation related to pancreatitis has resolved. Emerald Louis MD 01/31/2021 ACS consult pager: [phone] I saw and evaluated the patient with Dr. Louis (resident). I have independently reviewed the relevant laboratory and radiographic studies. I have edited the above note and agree with the details aswritten. My physical examination confirms the resident's findings. The assessment and plan were form ulated in discussion with me at the time of the visit and I agree with them as documented. Massimo Ndiaye MD * Eemrald Vasquez RN - 01/30/2021 5:31 PM EDT OUTCOME EVALUATION NOTE: OUTCOME SUMMARY: ?? VSS on RA ?? Pain in abdomen and back- relief with dilaudid, oxy, ice packs, and repositioning ?? Distended abdomen, hypoactive bowel sounds. 1 Liquid green BM today ?? Nausea this am, gave zofran ?? BCX NGTD PLAN MOVING FORWARD: ?? IVF ?? Pain mgmt ?? I/Os INDIVIDUALIZED FALL PREVENTION INTERVENTIONS: Patient-specific fall risk factors per assessment: [current deficits]: Pain IV Medication Assistance [level of assistance required for transfers and ambulation]: sba Supervision [direct monitoring required during toileting and ADLs]: sba Surveillance [continuous indirect monitoring]: Shoutitouto Bed alarm Clutter free room Utilizing lights rounding Patient-specific fall prevention interventions for sensory deficits provided, if applicable: [X] Yes CPG GOAL OUTCOME EVALUATION: * Nora Munoz, PT - 01/30/2021 10:45 AM EDT Physical Therapy Evaluation Patient profile: Toyin Lion is a 65 y.o. comorbid female w/ SIMMONS cirrhosis,??HTN, HLD, DM2, GERD, TIA, CKD stage 3b and s/p CCY in 2016 c/b recurrent RUQ pain episodes since then with recently dx retained stone in likely cystic stump who underwent an unsuccessful ERCP attempt at stone retrieval on 01/17/21 at [facility] c/b post-ERCP pancreatitis followed by 10-day hospitalization discharged 01/28, now representing with worsening leukocytosis, elevated lipase, GETACHEW, ascites and abdominal pain concerning for worsening pancreatitis with possible acute sloane-pancreatic fluid collection vs. necrosis. Patient with the following active problems: Past Medical History: Diagnosis Date ??? CKD (chronic kidney disease) 04/05/2020 ??? Delirium 04/05/2020 ??? Diabetes mellitus type 2, uncomplicated 05/14/2014 ??? Hx-TIA (transient ischemic attack) 05/14/2014 ??? Hyperlipidemia 05/28/2014 Off statin due to foot pain side effect ??? Hypertension 05/28/2014 ??? Restless legs syndrome (RLS) 04/05/2020 Active Non-Hospital Problems Diagnosis ??? Acute pancreatitis ??? PONV (postoperative nausea and vomiting) ??? Cystic duct calculus ??? RUQ pain ??? Toxic metabolic encephalopathy ??? Acute cystitis ??? Anxiety ??? Diabetic neuropathy ??? Nonalcoholic steatohepatitis ??? Restless legs syndrome (RLS) ??? CKD (chronic kidney disease) ??? Delirium ??? Hyperlipidemia ??? Hypertension ??? Diabetes mellitus type 2, uncomplicated ??? Hx-TIA (transient ischemic attack) ??? GERD (gastroesophageal reflux disease) ??? Environmental allergies Past Surgical History: Procedure Laterality Date ??? PRO ERCP,DIAGNOSTIC N/A 01/17/2021 ERCP performed by Eliel Leigh MD at [facility] Social History: Home set-up: Pt lives alone in a multi-level home, where she's able to stay on the first level. Bathroom Set-up: tub shower with shower chair and grab bars Stairs: 4STE, no rail Baseline Mobility: Pt is independent with ADLs and mobility at baseline. 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 When she's not able to drive and do errands outside the home (I.e., groceries), her daughter will assist. She typically ambulates without a device,but will use either a walker or a cane when she's feeling weak. Equipment at home: FWW, cane Fall history: denies Precautions/Special Considerations: at risk to fall Lines: mikaela RECIH Activity Orders: up with assistance Diet: NPO Mobility and Positioning Recommendations: ?? Pt. to utilize 1 assist for ambulation and transfers with nursing. ?? Please encourage up to chair for meal times as able. ?? Pt encouraged to ambulate frequently with staff, getting into the bathroom for toileting and walking out in the quintero >/= 3 times daily as able. Subjective: ???I've been so sick for so long, I really haven't done anything?? Objective: Pt seen for evaluation today. Pain: Reports 5/10 pain in abdomen and low back, premedicated with IV dilaudid prior to arrival Vital Signs: At Rest With Activity SpO2 (RA) 92% 95% HR 89bpm 99bpm Mental Status: alert, oriented to person, place, and time Skin: visible skin appears intact, pitting edema noted BLE Musculoskeletal: ROM: WFL Strength: WFL Sensation: intact to LT Bed Mobility: Supine to Sit: SBA with use of bed features Sit to Supine: NA Transfers: Sit to Stand: SBA Stand to Sit: SBA Gait: Distance: 25' Device used: none Level of assist: SBA Gait mechanics: Demo's slow gait with short step length bilaterally, mod trunk sway, and noted fatigue. No overt LOB. Stairs: NA Balance: Sitting Static: good Sitting Dynamic: good Standing Static: good Standing Dynamic / Gait: fair+ Education: patient has been educated on Bed mobility, Transfers, Safety , Precautions/protocol, Gait , Activity pacing/Energy conservation, Role of therapy, Balance and Discharge planning and verbalizes understanding. Patient status, treatment, and mobility recommendations discussed with nursing. Assessment: Toyin Lion was seen today for physical therapy evaluation. After recent 10-day hospitalization for post-ERCP pancreatitis, patient re- presents with worsening leukocytosis, elevated lipase, GETACHEW, ascites and abdominal pain concerning for worsening pancreatitis with possible acute sloane- pancreatic fluid collection vs. Necrosis. Pt c/o moderate abd/back pain this day, and appeared uncomfortable throughout session, however was pleasant and agreeable to participate. Upon evaluation, patient presents with impaired balance, impaired activity tolerance, pain, impaired gait mechanics and impaired endurance, resulting in functional limitation. With improved pain control and medical management, pt will likely make steady functional gains, and should be appropriate for home d/c after 1-3 additional skilled sessions to address progressive gait and stair negotiation. The pt would benefit from skilled therapy services while in the hospital to maximize functional abilities. Discharge Recommendations: Based on the current findings, Anticipated Discharge Disposition (PT): home with assist when medically ready for hospital discharge. Discharge recommendation is based on the patient's current physical impairments, prior functional status, potential to return to prior level of function, patient motivation, reported home support, potential for functional gains, current level of endurance, reported home environment and anticipated trajectory of progress and may change based on patient progress during this hospitalization. Consult Recommendations: No other consults recommended at this time. Equipment needs: Patient has all necessary equipment Goals: To be achieved by 02/07/2021: 1. Pt. to demonstrate knowledge of safety limitations and precautions and will appropriately request assistance for functional activities and to mobilize. 2. Pt. to perform bed mobility independently. 3. Pt. to perform sit to stand transfers with modified independence using LRAD. 4. Pt. to ambulate 150 feet with modified independence Using LRAD. 5. Pt. to ambulate up/down 4 step/stairs using straight cane with supervision. Plan: Therapy Frequency (PT): 1-3 more times for therapy including balance training, bed mobility training, gait training, patient/family education, stair training, strengthening and transfer training. Patient/family understand and agree with plan as stated above. 2017 PT Evaluation Code Rationale: ?? Diagnosis & Pertinent Co-Morbidities, personal factors, and present illness affecting Plan of Care: (see above); Additional personal factors or co- morbidities that impact plan: ?? Total # of Factors: 0 1-2 3+ X ?? Examination of body system impairments, functional limitations and behaviors, and/or participation restrictions. Addressing 1-2 elements Addressing 3 + elements X Addressing 4 + elements ?? Clinical presentation: See assessment above. Stable/Uncomplicated Evolving/Fluctuating Symptoms Unstable/Unpredictable X ?? Clinical decision making of low complexity based on pt's functional performance as outlined in this evaluation. Time IN / OUT: 7282-6304 Total Minutes, Physical Therapy: 14(low complexity eval ) Nora Munoz, PT Pager: [phone] Physical Therapy Inpatient Rehabilitation Department * Shirley Ruiz - 01/30/2021 8:14 AM EDT GASTROENTEROLOGY & HEPATOLOGY INPATIENT PROGRESS NOTE ID: Toyin Lion is a 65 y.o. female w/ a hx of biopsy proven SIMMONS cirrhosis, HTN, HLD, DM2, GERD, hx TIA, CKD stage 3b and s/p CCY in 2016 at [facility] with recurrent RUQ pain episodes since, presenting with recent choledocholithiasis s/p ERCP 01/17/21 c/b pancreatitis presenting with abdominal painand suspected sloane-pancreatic fluid collection. Interval History: --HDS, afebrile overnight without any events -- Hb stable 9.1, WBC 20-->18 -- HIDA scan obtained, no e/o bile leak -- MRCP with CBD filling defect c/f retained stones -- Started empirically on Zosyn for leukocytosis -- Patient continues have severe central and RUQ pain. NPO this morning, not hungry. Nl BM. No F/chills. ROS: 14-system ROS reviewed and negative except as above PMH and PFSH reviewed and up to date as of initial consult note dated 01/29/21 Active Hospital Problem List Patient Active Problem List Diagnosis Code GERD (gastroesophageal reflux disease) K21.9 Environmental allergies Z91.09 Diabetes mellitus type 2, uncomplicated E11.9 Hx-TIA (transient ischemic attack) Z86.73 Hyperlipidemia E78.5 Hypertension I10 Restless legs syndrome (RLS) G25.81 CKD (chronic kidney disease) N18.9 Delirium R41.0 Toxic metabolic encephalopathy G92 Acute cystitis N30.00 Anxiety F41.9 Diabetic neuropathy E11.40 Nonalcoholic steatohepatitis K75.81 Cystic duct calculus K80.20 RUQ pain R10.11 Acute pancreatitis K85.90 PONV (postoperative nausea and vomiting) R11.2, Z98.890 Pancreatitis K85.90 Scheduled Meds: piperacillin-tazobactam 3.375 g Intravenous Q8H DULoxetine DR 30 mg Oral Daily gabapentin 100 mg Oral Daily at Noon gabapentin 200 mg Oral BID metoprolol tartrate 12.5 mg Oral Q6H mirtazapine 7.5 mg Oral Nightly pantoprazole EC 40 mg Oral Daily sodium chloride 0.9 % (flush) 5 mL Intravenous BID heparin (porcine) 5,000 Units Subcutaneous Q8H BASIL senna-docusate 2 tablet Oral BID insulin lispro 1-5 Units Subcutaneous TID AC lidocaine 1 patch Transdermal Q24H And lidocaine 1 patch Transdermal Q24H Continuous Infusions: PRN Meds:.ondansetron, oxyCODONE, sodium chloride 0.9 % (flush), lidocaine, magnesium hydroxide, melatonin, calcium carbonate, polyethylene glycoL (MIRALAX) oral powder, glucose 40% oral geL OR dextrose 10% OR glucagon Physical Examination Vitals: 01/29/21 1641 01/29/21200601/30/21 0019 01/30/21 0526 BP: 143/71 143/68 BP Location (NBP): Left arm Left arm Patient Position: Lying Lying Pulse: 87 Resp: 16 18 Temp: 36.7 ??C (98.1 ??F) 36.5 ??C (97.7 ??F) TempSrc: Oral Oral SpO2: 99% 96% 92% Weight: 91.9 kg (202 lb 8 oz) Height: 160 cm (5' 3) PHYSICAL EXAM GENERAL: Tired, lying in position HEENT: AT/NC, sclerae anicteric, dry moist mucous membranes CHEST: CTA CARDIAC: RRR, normal S1/S2, no appreciable murmurs ABDOMEN: Soft, mildly distended, tender to RUQ, epigastric region. No guarding or rebound. NBS. EXT: Warm, no edema NEURO: Grossly intact, moves all extremities SKIN: No jaundice Pertinent Recent labs CBC Lab Results Component Value Date WBC 18.3 (H) 01/29/2021 Hemoglobin 9.1 (L) 01/29/2021 Hematocrit 26.7 (L) 01/29/2021 Platelets 152 01/29/2021 Lab Results Component Value Date Sodium 132 (L) 01/29/2021 Potassium 4.8 01/29/2021 Chloride 100 01/29/2021 CO2 23 01/29/2021 BUN 39 (H) 01/29/2021 Creatinine 1.84 (H) 01/29/2021 LFT's Lab Results Component Value Date Alk Phos 263 (H) 01/29/2021 AST 80 (H) 01/29/2021 Albumin 2.1 (L) 01/29/2021 Total Bilirubin 1.2 01/29/2021 ALT 47 (H) 01/29/2021 Total Protein 6.3 01/29/2021 IMAGING: Reviewed in eDH 01/29/2021 MRCP IMPRESSION 1. 2 small intraluminal signal voids seen in the common bile duct without biliary ductal dilatation. Possible retained calculi. 2. Pancreas: Mild diffuse edema. No pancreatic ductal dilatation. 3. Large peripherally enhancing partially loculated fluid collection surrounding the pancreatic head and uncinate process, as described above; possible pseudocyst, however, cannot exclude an abscess. 01/29/2021 HIDA IMPRESSION Normal hepatic function with no evidence of biliary leak. 01/29/21 CT A/P IMPRESSION * Increased peripancreatic and periduodenal tracking into the Fallon's pouch and the pelvis in the setting of known pancreatitis. Evaluation of the pancreatic parenchyma is limited due to lack of IV contrast. * Interval loculation of an enlarged 5.5 x 5.5 x 4.1 cm thick-walled collection anterior to the hepatic flexure (series 3 image 70). Differential considerations include pseudocyst (more likely), walled off necrosis, and abscess. * Unchanged gallstone in the gallbladder/cystic duct remnant. * Thickening of the duodenum, likely reactive. ENDOSCOPY: Reviewed in [facility] 01/17/21 ERCP Impression: - A single small cholecystolithiasis was found adherent to the wall of the gallbladder remanent - Ductoscopy was performed and attempts to disrupt and remove the stone with EHL, and Spy Basket and Spy snare were unsuccessful. Recommendation: - Discharge patient to home. - Clear liquid diet for 2 hours. - Observe patient's clinical course. - Return to referring physician and consider referral to surgery for completion cholecystectomy. IMPRESSION: Toyin Lion is a 65 y.o. female w/ a hx of biopsy proven SIMMONS cirrhosis, HTN, HLD, DM2, GERD, hx TIA, CKD stage 3b and s/p CCY in 2016 at [facility] with recurrent RUQ pain episodes since, presenting with recent choledocholithiasis s/p ERCP 01/17/21 c/b pancreatitis presenting with abdominal pain andsuspected sloane-pancreatic fluid collection. Imaging reviewed with General Surgery and Radiology. CT findings most consistent with pancreatitis complications of sloane-pancreatic collecting vs. Acute necrotizing collection/evolving WON. At this time, she is presenting from acute episode pancreatitis and would recommend avoiding any drainage of collection until more time has passed to evaluate if this will organize or resolve. Her HIDA scan isreassuring without evidence of bile leak; it appears that her choledocholithiasis persists based onMRCP after unsuccessful ERCP, in addition to known cystic duct stone; question of whether new stones are now seen which could also further explain her acute worsening of pain since discharge, as it co uld also be contributing to her pancreatitis. Agree her management should include completion CCY but in this acute inflammatory period may want to monitor until this improves. Continue treatment for acute pancreatitis from recent ERCP +/- gallstones. Without fevers, remaining clinically stable, suspect her leukocytosis is 2/2 pancreatitis, can consider holding antibiotics. Lower concern for infected fluid collection in this acute period. RECOMMENDATIONS: -Continue aggressive hydration with LR -Monitor UO -Analgesia per primary team -Appreciate General Surgery recs -No role endoscopic intervention at this time -Antibiotics per primary team; no indication from GI standpoint -Okay for diet with low-fat diet from GI perspective This case was discussed with Dr. Allison Ruiz M.D. Fellow in Gastroenterology and Hepatology Pager #[phone] 01/30/2021 Associated attestation - Brian Cooper MD - 01/30/2021 1:28 PM EDT I have seen and evaluated the patient with Dr. Ruiz. I have reviewed the fellow's history during the encounter and I agree with the details as written above. My physical examination confirms the above findings. The assessment and plan were formulated in discussion with me at the time of the encounter and I agree with them as documented. Brian Cooper MD, [employer] Aides[employer]er separation designer Section of Gastroenterology and Hepatology * Lisa Valles MD - 01/30/2021 8:07 AM EDT Inpatient Medicine Progress Note Hospital Day 2 days Active Hospital Problems Diagnosis ??? Pancreatitis Resolved Hospital Problems No resolved problems to display. Patient ID: Toyin Lion is a 65 y.o. 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 24 Hour Events/Subjective: - on fluids and pain control - Yesterday, got MRCP and hida scan yesterday. MRCP read pending. Hida scan showed no leak. - NAEO - This AM, patient continues to have abdominal pain and swelling. Vitals: Last value Range last 24 hrs Temperature Temp: 36.5 ??C (97.7 ??F) Temp: [36.5 ??C (97.7 ??F)-36.7 ??C (98.1 ??F)] Heart Rate Heart Rate: 87 Heart Rate: [75-87] Blood Pressure BP: 162/79 BP: (117-162)/(52-81) Respiratory Rate Resp: 20 Resp: [12-20] SpO2 SpO2: 94 % SpO2: [92 %-99 %] Ins/Outs: Intake/Output Summary (Last 24 hours) at 01/30/2021 0939 Last data filed at 01/30/2021 0829 Gross per 24 hour Intake 10 ml Output 700 ml Net -690 ml Patient Vitals for the past 168 hrs: Weight 01/29/21 1641 91.9 kg (202 lb 8 oz) 01/28/21 1921 87.5 kg (192 lb 12.8 oz) Physical Exam: Gen: Alert & oriented x3, NAD, well nourished, appears fatgiued and unwell. HEENT: PERRLA, EOMI, no conjunctival injection, no icterus CV: Distant heart sounds, appears regular with a normal rate, no obvious M/R/G Pulm: Normal respiratory effort, CTA with good air entery bilaterally, no rales/rhonchi/wheezes Abd: Tenderness without rebound or guarding, most prominent in the RUQ without tymapny. Normoactivebowel sounds. Ext: 1-2+ edema int he bilateral lower extremities Neuro: Grossly intact, moving all four extremities. Skin: Warm, dry, no rashes. Labs: Recent Labs 01/30/21 0801/29/21 12401/28/211954 WBC 20.4* 18.3* 20.2* HGB 9.0* 9.1* 8.7* PLATELET 173 152 123* Recent Labs 01/30/21 0801/29/21 12401/28/211954 NA 132* 132* 133* K 4.6 4.8 4.4 CL 101 100 100 CO2 23 23 24 BUN 40* 39* 35* CREATININE 1.82* 1.84* 1.80* Recent Labs 01/30/21 0822 01/29/21 1245 01/28/21195401/27/21 0335 01/26/21 0423 01/25/21 043 CALCIUM 8.3* 8.5 8.3* 8.4* 8.8 8.6 MAGNESIUM -- -- -- 0.77 0.98 0.66* Recent Labs 01/30/21 0822 01/29/21 1245 01/28/211954 AST 87* 80* 66* ALT 49* 47* 43* ALKPHOS 273* 263* 269* BILITOT 1.0 1.2 1.0 BILIDIR -- -- 0.6* No results for input(s): TROPONINT, CK in the last 168 hours. No results for input(s): PHART, OMJ3NIU, PO2ART, QDP6FXE in the last 168 hours. Inpatient Medications: Scheduled Meds: ??? piperacillin-tazobactam 3.375 g Intravenous Q8H ??? DULoxetine DR 30 mg Oral Daily ??? gabapentin 100 mg Oral Daily at Noon ??? gabapentin 200 mg Oral BID ??? metoprolol tartrate 12.5 mg Oral Q6H ??? mirtazapine 7.5 mg Oral Nightly ??? pantoprazole EC 40 mg Oral Daily ??? sodium chloride 0.9 % (flush) 5 mL Intravenous BID ??? heparin (porcine) 5,000 Units Subcutaneous Q8H BASIL ??? senna-docusate 2 tablet Oral BID ??? insulin lispro 1-5 Units Subcutaneous TID AC ??? lidocaine 1 patch Transdermal Q24H And ??? lidocaine 1 patch Transdermal Q24H Continuous Infusions: PRN Meds:.ondansetron, oxyCODONE, sodium chloride 0.9 % (flush), lidocaine, magnesium hydroxide, melatonin, calcium carbonate, polyethylene glycoL (MIRALAX) oral powder, glucose 40% oral geL OR dextrose 10% OR glucagon Assessment/Plan: [age] year old woman with above past medical history & recent admission for likely post-ERCP pancreatitis who is readmitted with ongoing abdominal pain & weakness. ?? Persistent lipase elevation, leukocytosis & ongoing abdominal pain potentially consistent with incompletely resolved pancreatitis, new sloane-pancreatic fluid collection, pseudocyst versus pancreatic necrosis. No evidence of necrosis. Equally possible her chronic cystic stump/infundibular cholecystitis may have ongoing, evolving, inflammation which could warrant surgical intervention. Otherwiseplan for IVF resuscitation, cultures & empiric treatment with zosyn for ongoing leukocytosis. General surgery will consider surgical intervention after inflamation goes down. Hida scan showed no bile leak. MRCP showed collection of fluid around head of pancreas, reaching out to GI regarding next steps. Treating symptomatically in the mean time. ?? Rest below. ?? #Elevated lipase #Recent ERCP-pancreatitis - Consult to Gen Surg for possible stump cholecystitis, appreciate recs - CT A/P w/ oral contrast- as above - Maintain NPO status for now, pending general surgery recs - cw zosyn 3.375 mg Q6 - For possible residual pancreatitis: Continue goal directed fluid management w/ LR 200cc/hr - Pain: oxycodone 5 mg Q4 hours (patient requests v low dose) or IV dilaudid 0.4mg - GI consult, recs appreciated - MRCP as above - Hida scan as above ?? #History of constipation - Sched'd docusate senna - PRN mag citrate - Miralax QD prn ?? #GETACHEW on CKD III Concern for prerenal physiology in the setting of ongoing infection Recent GETACHEW attributed to IV contrast - Avoid nephrotoxic agents (HOLD lisinopril) - Goal MAP >65 - Daily BMP, Mg, phos - IVF as above ?#HTN - Hold home lisinopril 10 mg QD - Home HCTZ d/c'd during last admission ?? #NIDDM II Last A1c 7 - Carb control diet when taking PO again - Sensitive SSI - Continue home gabapentin for neuropathy ?? #Outpatient meds: - Continue split dose metoprolol 12.5 mg Q6 - Continue home duloxetine ?? - Continue home remeron - Continue home protonix? #Housekeeping: - DVT PPx: SQH - GI PPx: PPI - Diet: NPO - Level of care: Med/Surg - Vitals: Q6 - Code Satus: FULL, daughter is DPOA Lisa Valles MD PGY - 1, Internal Medicine 01/30/2021 Associated attestation - Maxim Motley MD - 01/31/2021 3:30 PM EDT I have seen the patient on 01/30 and reviewed 's history and I agree with the details as written. I have personally reviewed and interpreted vital signs, lab and imaging studies. The assessmentand plan were formulated in discussion with me and I agree with them as documented. 65 y/o female with listed history most pertinent for hx cholecystectomy, recent admission for ERCP with unsuccessful retrieval of a retained stone c/b post ERCP pancreatitis now readmitted with abdominal pain, nausea, vomiting, leukocytosis and a new sloane-pancreatic fluid collection consistent withpseudocyst vs pancreatic necrosis. She has now undergone HIDA scan and MRCP. HIDA is negative for a biliary leak and MRCP reveals possible CBD calculi. She is clinically feeling improved however continues to require pain and nausea control. Case discussed with GI and general surgery who do not recommend repeat ERCP or completion cholecystectomy as both procedures would be morbid in an active inflammatory state. Will continue conservative management with fluids, pain control, anti-emetics and bowel rest. There is currently no role for antibiotic therapy so we will discontinue zosyn. DVT Prophylaxis Heparin PCP Asia Gil DO Attestation IPI Certification I certify that I am a [facility] credentialed attending provider with admitting privileges and that the patient meets or has met medical necessity to require an inpatient IPI level of care meeting a minimumof two midnights or is on the [facility] inpatient only procedure list (status C) due to: Acute pancreatitis requiring IVF, pain control and anti-emetics MAXIM MOTLEY MD * Nora Munoz PT - 01/29/2021 9:52 AM EDT Physical Therapy Contact Note 01/29/21 9485 Physical Therapy Time and Intention Document Type contact Mode of Treatment physical therapy Total Minutes, Physical Therapy 0 Comment, Session Not Performed Consult received, chart reviewed. Pt scheduled for admission to inpatient unit, will follow up for formal eval after transfer to floor. Nora Munoz, PT Pager: [phone] Physical Therapy Inpatient Rehabilitation Department * Lisa Valles MD - 01/29/2021 8:23 AM EDT Inpatient Medicine Progress Note Hospital Day 1 day Active Hospital Problems Diagnosis ??? Pancreatitis Resolved Hospital Problems No resolved problems to display. Patient ID: Toyin Lion is a 65 y.o. 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 24 Hour Events/Subjective: - Yesterday, admitted to hospital medicine. Gen surg following - NAEO - This AM, patient continues to have abdominal pain and swelling. Vitals: Last value Range last 24 hrs Temperature Temp: 36.5 ??C (97.7 ??F) Temp: [36.5 ??C (97.7 ??F)] Heart Rate Heart Rate: 75 Heart Rate: [75-93] Blood Pressure BP: 127/54 BP: (118-139)/(47-56) Respiratory Rate Resp: 14 Resp: [13-18] SpO2 SpO2: 97 % SpO2: [93 %-100 %] Ins/Outs: No intake or output data in the 24 hours ending 01/29/21 1030 Patient Vitals for the past 168 hrs: Weight 01/28/21 1921 87.5 kg (192 lb 12.8 oz) Physical Exam: Gen: Alert & oriented x3, NAD, well nourished, appears fatgiued and unwell. HEENT: PERRLA, EOMI, no conjunctival injection, no icterus CV: Distant heart sounds, appears regular with a normal rate, no obvious M/R/G Pulm: Normal respiratory effort, CTA with good air entery bilaterally, no rales/rhonchi/wheezes Abd: Tenderness without rebound or guarding, most prominent in the RUQ without tymapny. Normoactivebowel sounds. Ext: 1-2+ edema int he bilateral lower extremities Neuro: Grossly intact, moving all four extremities. Skin: Warm, dry, no rashes. Labs: Recent Labs 01/28/21195401/27/215 01/26/21 0423 WBC 20.2* 18.6* 21.8* HGB 8.7* 9.3* 10.3* PLATELET 123* 108* 135* Recent Labs 01/28/21195401/27/214 01/27/21 0335 NA 133* 131* 132* K 4.4 3.9 3.2* CL 100 97* 97* CO2 24 27 25 BUN 35* 24* 25* CREATININE 1.80* 1.54* 1.63* Recent Labs 01/28/21195401/27/21104301/27/215 01/26/21 0423 01/25/21 0435 CALCIUM 8.3* 8.3* 8.4* 8.8 8.6 MAGNESIUM -- -- 0.77 0.98 0.66* Recent Labs 01/28/211954 AST 66* ALT 43* ALKPHOS 269* BILITOT 1.0 BILIDIR 0.6* No results for input(s): TROPONINT, CK in the last 168 hours. No results for input(s): PHART, QCL7BRQ, PO2ART, ZQI2GIM in the last 168 hours. Inpatient Medications: Scheduled Meds: ??? piperacillin-tazobactam 3.375 g Intravenous Q8H ??? DULoxetine DR 30 mg Oral Daily ??? gabapentin 100 mg Oral Daily at Noon ??? gabapentin 200 mg Oral BID ??? metoprolol tartrate 12.5 mg Oral Q6H ??? mirtazapine 7.5 mg Oral Nightly ??? pantoprazole EC 40 mg Oral Daily ??? sodium chloride 0.9 % (flush) 5 mL Intravenous BID ??? heparin (porcine) 5,000 Units Subcutaneous Q8H BASIL ??? senna-docusate 2 tablet Oral BID ??? lidocaine 1 patch Transdermal Q24H And ??? lidocaine 1 patch Transdermal Q24H Continuous Infusions: ??? sodium chloride 0.9% 200 mL/hr (01/29/21 0133) ??? sodium chloride 0.9% 200 mL/hr (01/29/21 1022) PRN Meds:.oxyCODONE, sodium chloride 0.9 % (flush), lidocaine, magnesium hydroxide, melatonin, hydrOXYzine, calcium carbonate Assessment/Plan: [age] year old woman with above past medical history & recent admission for likely post-ERCP pancreatitis who is readmitted with ongoing abdominal pain & weakness. ?? Persistent lipase elevation, leukocytosis & ongoing abdominal pain potentially consistent with incompletely resolved pancreatitis, new sloane-pancreatic fluid collection, pseudocyst versus pancreatic necrosis. No evidence of necrosis. Equally possible her chronic cystic stump/infundibular cholecystitis may have ongoing, evolving, inflammation which could warrant surgical intervention. Appreciate General Surgery evaluation. CT as above- will reach out to gen surg for continued recs. Otherwise plan for IVF resuscitation, cultures & empiric treatment with zosyn for ongoing leukocytosis. General surgery will consider surgical intervention after inflamation goes down. Per GI, will get hidascan (took look for bile leak) and MRCP. ?? Rest below. ?? #Elevated lipase #Recent ERCP-pancreatitis - Consult to Gen Surg for possible stump cholecystitis, appreciate recs - CT A/P w/ oral contrast- as above - Maintain NPO status for now, pending general surgery recs - cw zosyn 3.375 mg Q6 - For possible residual pancreatitis: Continue goal directed fluid management w/ NS Titrate to Hct <44, HR <120, MAP 65-85 mmHg, urine output >0.5-1 cc/kg/hr - Pain: oxycodone 2.5 mg Q4 hours (patient requests v low dose) - GI consult, recs appreciated - F/u MRCP - F/u hida scan ?? #History of constipation - Sched'd docusate senna - PRN mag citrate - Miralax QD prn ?? #GETACHEW on CKD III Concern for prerenal physiology in the setting of ongoing infection Recent GETACHEW attributed to IV contrast - Avoid nephrotoxic agents (HOLD lisinopril) - Goal MAP >65 - Daily BMP, Mg, phos ?#HTN - Hold home lisinopril 10 mg QD - Home HCTZ d/c'd during last admission ?? #NIDDM II Last A1c 7 - Carb control diet when taking PO again - Sensitive SSI - Continue home gabapentin for neuropathy ?? #Outpatient meds: - Continue split dose metoprolol 12.5 mg Q6 - Continue home duloxetine ?? - Continue home remeron - Continue home protonix? #Housekeeping: - DVT PPx: SQH - GI PPx: PPI - Diet: NPO - Level of care: Med/Surg - Vitals: Q6 - Code Satus: FULL, daughter is ODILIA Dominguez MD Reena PGY - 1, Internal Medicine 01/29/2021 Associated attestation - Maxim Motley MD - 01/31/2021 3:26 PM EDT Please see H&P attestation. MAXIM MOTLEY MD documented in this encounter H&P Notes * Morenita Farr MD - 01/28/2021 11:44 PM EDT Images from the original note were not included. Hospital Medicine Admission History and Physical Patient Name: TOYIN LION Date of : 1955 Age: 65 y.o. Hospital Admit Date: 01/28/2021 Inpatient Attending: Katy Arce MD PCP: Asia Gil DO Presenting Diagnosis/Chief Complaint: Edema History of Present Illness: Toyin Lion is a 65 y.o. 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 Patient initially presented, and was admitted, to Hospital Medicine 01/17 with abdominal pain after ERCP. Patient has a history of chronic RUQ and R flank pain since her cholecystectomy ([facility], 2016). Recent work-up has included EGD, colonoscopy (12/25) & ultimately RUQ U/S (12/27) which demonstrated a retained stone in the cystic duct remnant versus infundibulum with surrounding wall thickening prompting ERCP 01/17. Unfortunately, she presented to the ED shortly thereafter due to abdominal pain. Lipase was significantly elevated >3K in this setting and CT A/P was consistent with pancreatitis. Patient was treated with IV fluids, Tylenol and oxycodone with an unfortunate uptrend in her WBC count prompting increase in her IV fluid rate with interval improvement in her leukocytosis. Abdominal pain was waxing and waning per hx and unfortunately complicated by constipation during this hospitalization. Patient was discharged 01/27, at her request. Per d/c note: Patient had rising WBC on discharge. Patient was encouraged to stay, but [...] decided that her hospital stay had been long enough. Patient agreeable to close follow-up as outpatient and low threshold to visit ED. Patient re-presents this evening with edema & ongoing abdominal pain. She reports feeling terrible with fatigue, weakness, and ongoing RUQ pain. Since discharge reports abdominal pain is unchanged; though again has been significantly & stably worse since ERC. She denies fever, chills, weight loss/gain, emesis, diarrhea. Has been tolerating PO intake without abdominal pain & having more or less regular BMs, last this AM. Has been taking tylenol consistently since getting home. In the ED patient is hemodynamically stable with heart rate in the 80s, blood pressure 120-130/40-50, saturating appropriately on room air. Labs are notable for - CBC: leukocytosis (20.2), anemia (8.7, 25.9), thrombocytopenia (123) - LFTs: Mixed cholestatic and hepatocellular liver function abnormalities, with elevated T bili compared to prior and worsening of higher alk phos from prior. -Elevated lipase > 1200 - No repeat imaging at this time - Patient receved requested lidocaine patch for low back pain (she attributes to lumbar herniated disc) but no other interventions at this time. Review of Systems(Positives in Bold): Negative omitting above Past Medical History: Past Medical History: [...] kidney disease) N18.9 ??? Delirium R41.0 ??? Toxic metabolic encephalopathy G92 ??? Acute cystitis N30.00 ??? Anxiety F41.9 ??? Diabetic neuropathy E11.40 ??? Nonalcoholic steatohepatitis K75.81 ??? Cystic duct calculus K80.20 ??? RUQ pain R10.11 ??? Acute pancreatitis K85.90 ??? PONV (postoperative nausea and vomiting) R11.2, Z98.890 ??? Pancreatitis K85.90 Past Surgical History: Past Surgical History: Procedure Laterality Date ??? PRO ERCP,DIAGNOSTIC N/A 01/17/2021 ERCP performed by Eliel Leigh MD at [facility] Social History: Social History Socioeconomic [...] Gatherings with Friends and Family: ??? Attends Sikhism Services: ??? Active Member of Clubs or [...] Most environmental allergies: grass, workman, trees,pollen Medications: (Not in a hospital admission) PHYSICAL EXAM: Last value Range last 24 hrs Temperature Temp: -- Heart Rate Heart Rate: 89 Heart Rate: [89] Blood Pressure BP: 126/50 BP: (126)/(50) Respiratory Rate Resp: 15 Resp: [15] SpO2 SpO2: 99 % SpO2: [99 %] No intake/output data recorded. Gen: Alert & oriented x3, NAD, well nourished, appears fatgiued and unwell. HEENT: PERRLA, EOMI, no conjunctival injection, no icterus CV: Distant heart sounds, appears regular with a normal rate, no obvious M/R/G Pulm: Normal respiratory effort, CTA with good air entery bilaterally, no rales/rhonchi/wheezes Abd: Tenderness without rebound or guarding, most prominent in the RUQ without tymapny. Normoactivebowel sounds. Ext: 1-2+ edema int he bilateral lower extremities Neuro: Grossly intact, moving all four extremities. Skin: Warm, dry, no rashes LABS: Recent Labs 01/28/21195401/27/21 0335 01/26/21 0423 WBC 20.2* 18.6* 21.8* HGB 8.7* 9.3* 10.3* HCT 25.9* 27.5* 30.6* PLATELET 123* 108* 135* Recent Labs 01/28/21195401/27/21 1044 01/27/21 0335 NA 133* 131* 132* K 4.4 3.9 3.2* CL 100 97* 97* CO2 24 27 25 BUN 35* 24* 25* CREATININE 1.80* 1.54* 1.63* Recent Labs 01/28/21195401/27/21 1044 01/27/21 0335 01/26/21 0423 01/25/21 0435 CALCIUM 8.3* 8.3* 8.4* 8.8 8.6 MAGNESIUM -- -- 0.77 0.98 0.66* No results for input(s): PT, PTT, FIBRINOGEN, DDIMER in the last 168 hours. Invalid input(s): THROMBIN TIME No results for input(s): INR in the last 168 hours. Recent Labs 01/28/211954 AST 66* ALT 43* ALKPHOS 269* BILITOT 1.0 BILIDIR 0.6* No results for input(s): CK, TROPONINT in the last 168 hours. No results for input(s): LDH, URICACID in the last 168 hours. No results for input(s): TSH in the last 7068 hours. Recent Labs 01/19/21 0306 HA1C 7.0* Lab Results Component Value Date CHLPL 229 (H) 08/13/2010 HDL 50 08/13/2010 CHOLHDL 4.6 08/13/2010 TRIG 291 (H) 08/13/2010 LDLCHOL 121 (H) 08/13/2010 Imaging/Diagnostics: No results found for this visit on 01/28/21. ASSESSMENT and PLAN: [age] year old woman with above past medical history & recent admission for likely post-ERCP pancreatitis who is readmitted with ongoing abdominal pain & weakness. Persistent lipase elevation, leukocytosis & ongoing abdominal pain potentially consistent with incompletely resolved pancreatitis, new sloane-pancreatic fluid collection, pseudocyst versus pancreatic necrosis. Given relative hemodynamic stability & only mildly abnormal abdominal exam this evening, presentation unlikely to reflect necrosis. Equally possible her chronic cystic stump/infundibular cholecystitis may have ongoing, evolving, inflammation which could warrant surgical intervention. Appreciate General Surgery evaluation. Plan for CT with oral contrast, will pretreat for known CKDwith NS & specify patient is not to receive IV contrast. Otherwise plan for IVF resuscitation, cultures & empiric treatment with zosyn for ongoing leukocytosis. If evidence of pseudocyst or fluid collection, consider GI consult for possible axios stenting tomorrow. Rest below. #Elevated lipase #Recent ERCP-pancreatitis - Consult to Gen Surg for possible stump cholecystitis, appreciate recs - F/u CT A/P w/ oral contrast - Maintain NPO status for now, pending CT result - START zosyn 3.375 mg Q6 - For possible residual pancreatitis: Continue goal directed fluid management w/ NS Titrate to Hct <44, HR <120, MAP 65-85 mmHg, urine output >0.5-1 cc/kg/hr - Pain: oxycodone 2.5 mg Q4 hours (patient requests v low dose) #History of constipation - Sched'd docusate senna - PRN mag citrate #GETACHEW on CKD III Concern for prerenal physiology in the setting of ongoing infection Recent GETACHEW attributed to IV contrast - Avoid nephrotoxic agents (HOLD lisinopril) - Goal MAP >65 - Daily BMP, Mg, phos ??#HTN - Hold home lisinopril 10 mg QD - Home HCTZ d/c'd during last admission #NIDDM II Last A1c 7 - Carb control diet when taking PO again - Defer SSI - Continue home gabapentin for neuropathy #Outpatient meds: - Continue split dose metoprolol 12.5 mg Q6 - Continue home duloxetine ?? - Continue home remeron - Continue home protonix?? #Housekeeping: - DVT PPx: SQH - GI PPx: PPI - Diet: NPO - Level of care: Med/Surg - Vitals: Q6 - Code Satus: FULL, daughter is DPOA Morenitara Yolanda Farr MD Internal Medicine PGY 3 Purple Team, Pager [phone] Associated attestation - Maxim Motley MD - 01/31/2021 3:25 PM EDT I have seen the patient on 01/29 and reviewed 's history and I agree with the details aswritten. I have personally reviewed and interpreted vital signs, lab and imaging studies. The assessment and plan were formulated in discussion with me and I agree with them as documented. 65 y/o female with listed history most pertinent for recent admission for ERCP with unsuccessful retrieval of a retained stone c/b post ERCP pancreatitis re- presenting with abdominal pain, nausea, vomiting, leukocytosis and a new sloane- pancreatic fluid collection consistent with pseudocyst vs pancreatic necrosis. She is clinically stable however given hx retained stone, will consult with GI and general surgery to determine procedural options. In the interim it is reasonable to continue her current management with IVF, IV antibiotics while pending evaluation. DVT Prophylaxis Heparin PCP Asia Gil DO Attestation IPI Certification I certify that I am a D-H credentialed attending provider with admitting privileges and that the patient meets or has met medical necessity to require an inpatient IPI level of care meeting a minimumof two midnights or is on the [facility] inpatient only procedure list (status C) due to: Acute pancreatitis requiring IVF, pain control and anti-emetics MAXIM MOTLEY MD documented in this encounter ED Notes * Breann Gilmore RN - 01/29/2021 3:42 PM EDT 0750: Care assumed of pt. Pt resting comfortably in bed. Vitals rechecked. Aware of 0900 meds due 0930: MRI safety sheet completed. Pt states she is very anxious for the MRI, admitting team to be made aware 1100: Pt to Nuc Med 1131: Pt's daughter updated via phone. 1542: Report attempted * Laisha Rivera RN - 01/29/2021 6:04 AM EDT 2350: Pt. Resting on stretcher, respirations even and unlabored. Vitals stable. 0015: Pt. Asking if she is able to have something to eat, RN informed patient she will notify admitting team. Pt. States she believes she is feeling nauseous due to not having eaten anything all day. 0200: Hospital bed ordered for patient for comfort. 0325: Pt. Moved onto hospital bed for comfort, on monitor. Resting comfortably with eyes closed. Respirations even and unlabored, vitals stable. 0355: Pt. Taken to CT scan. 0600: Pt. Resting on hospital bed, respirations even and unlabored. Vitals stable. Will continue tomonitor. * Cristian Miller MD - 01/28/2021 7:26 PM EDT ED Resident Note Toyin Lion is an 65 y.o. female who presents to the ED with: Chief Complaint Patient presents with ??? Hospital Transfer from [facility] for ED/Hosp med ??? Edema I saw this patient on 01/29/2021. History is from patient and chart review. HPI Toyin Lion is a 65 y.o. female with a past medical history significant for T2DM, TIA, CKD, andpancreatitis who presents to the Emergency Department as a transfer from [facility] with concern for pancreatitis/cholangitis. Patient reports that since being discharged yesterday she has had persistent abdominal pain and increasing edema. She presented to the [facility] for the edema and was found to have elevated lipase and proBNP with cardiomegaly on CXR. She denies any CP, but notes some new dyspnea on exertion. She denies SOB while at rest. She denies any fever, chills, nausea, or vomiting. She received zosyn at the outside hospital. Review of Systems: Review of Systems Constitutional: Positive for activity change, appetite change and chills. Negative for fever. HENT: Negative for nosebleeds, rhinorrhea and sore throat. Eyes: Negative for pain and visual disturbance. Respiratory: Negative for shortness of breath and wheezing. Cardiovascular: Positive for leg swelling. Negative for chest pain. Gastrointestinal: Positive for abdominal distention and abdominal pain. Negative for anal bleeding,blood in stool, constipation, diarrhea, nausea and vomiting. Endocrine: Negative for cold intolerance and heat intolerance. Genitourinary: Negative for dysuria, flank pain and hematuria. Musculoskeletal: Negative for back pain and neck pain. Skin: Negative for rash. Neurological: Negative for syncope and headaches. Physical Exam: Patient Vitals for the past 24 hrs: BP Temp Temp src Pulse Resp SpO2 Weight 01/29/21 1400 117/60 -- -- 75 12 95 % -- 01/29/21 1241 -- -- -- 83 14 97 % -- 01/29/21 1240 136/53 -- -- -- -- -- -- 01/29/21 0812 -- 36.5 ??C (97.7 ??F) Oral -- -- -- -- 01/29/21 0752 127/54 -- -- 75 14 97 % -- 01/29/21 0630 -- -- -- 93 18 98 % -- 01/29/21 0530 -- -- -- 86 14 95 % -- 01/29/21 0430 -- -- -- 86 16 94 % -- 01/29/21 0330 -- -- -- 83 14 98 % -- 01/29/21 0324 137/50 -- -- 91 13 -- -- 01/29/21 0230 -- -- -- 89 15 97 % -- 01/29/21 0115 -- -- -- 83 16 98 % -- 01/29/21 0000 139/53 -- -- 85 15 95 % -- 01/28/21 2330 135/52 -- -- 87 15 93 % -- 01/28/21 2230 123/47 -- -- 85 16 100 % -- 01/28/21 2100 139/56 -- -- 89 16 98 % -- 01/28/211999 118/50 -- -- 89 13 98 % -- 01/28/21 1921 126/50 -- -- 89 15 99 % 87.5 kg (192 lb 12.8 oz) GEN: Alert and conversant, no acute distress. HEENT: Normocephalic, atraumatic. PERRLA, EOMI. Oropharynx clear, pink, and moist, without discharge. PULM: Clear to auscultation bilaterally, no wheezes, rales, or rhonchi. CV: Regular rate and rhythm, no murmurs, rubs, or gallups. ABD: Diffuse tenderness R>L, distension without rigidity, rebound, or guarding. MSK: All four extremities without obvious deformity. Trace lower extremity pitting edema. NEURO: AAOx3. No gross CN deficits. Moves extremities equally. PSYCH: Appropriate behavior, affect, and thought pattern. SKIN: No visible rashes or wounds. ED Course: - Patient seen and discussed with the attending physician. - I reviewed the patient's medications, allergies, and past medical history. Recent Results (from the past 24 hour(s)) COVID-19 PCR Specimen: Nasopharyngeal Swab Symptoms->Surveillance Result Value Ref Range Rapid SARS-CoV-2 RNA Not Detected Not Detected SARS-CoV-2 Source [employer] Swab Basic Metabolic Panel (non-fasting) Result Value Ref Range Glucose Lvl 123 65 - 199 mg/dL BUN 35 (H) 8 - 18 mg/dL Creatinine 1.80 (H) 0.70 - 1.20 mg/dL Sodium 133 (L) 135 - 145 mmol/L Potassium 4.4 3.5 - 5.0 mmol/L Chloride 100 98 - 107 mmol/L CO2 24 22 - 31 mmol/L Anion Gap 9 5 - 15 mmol/L Calcium 8.3 (L) 8.5 - 10.5 mg/dL Estimated GFR 29 (L) >=60 mL/min/1.73 m?? Hepatic Function Panel Result Value Ref Range Total Protein 6.1 6.1 - 8.0 gm/dL Albumin 1.9 (L) 3.2 - 5.2 gm/dL AST 66 (H) 0 - 30 unit/L ALT 43 (H) 0 - 30 unit/L Alk Phos 269 (H) 35 - 105 unit/L Total Bilirubin 1.0 0.2 - 1.3 mg/dL Bili, Direct 0.6 (H) 0.0 - 0.3 mg/dL Lipase Result Value Ref Range Lipase 1,294 (H) 0 - 60 unit/L Hemogram Result Value Ref Range WBC 20.2 (H) 4.0 - 9.5 x10(3)/mcL RBC 2.75 (L) 4.00 - 5.21 x10(6)/mcL Hemoglobin 8.7 (L) 11.7 - 15.5 gm/dL Hematocrit 25.9 (L) 35.7 - 45.8 % MCV 94.2 82.6 - 94.4 fL MCH 31.6 27.1 - 32.0 pg MCHC 33.6 31.7 - 35.0 gm/dL Platelets 123 (L) 145 - 357 x10(3)/mcL RDWSD 44.3 37.0 - 46.0 fL RDWCV 12.9 11.5 - 14.1 % MPV 12.2 7.6 - 12.9 fL nRBC % Auto 0.0 % nRBC Abs Auto 0.000 0.000 - 0.000 x10(3)/mcL Differential, Automated Result Value Ref Range Neutrophils % 88.5 % Neutr Abs (ANC) 17.88 (H) 1 - 6 x10(3)/mcL Lymphocytes % 4.7 % Lymphocytes Abs 0.9 0.9 - 3.2 x10(3)/mcL Monocytes % 4.9 % Monocyte Abs 1.0 (H) 0.3 - 0.9 x10(3)/mcL Eosinophils % 0.1 % Eosinophils Abs 0.0 0.0 - 0.4 x10(3)/mcL Basophils % 0.5 % Basophils Abs 0.1 0.0 - 0.1 x10(3)/mcL Immature Gran % 1.30 % Anya Gran Abs 0.27 (H) 0.00 - 0.04 x10(3)/mcL Blue Tube HOLD Result Value Ref Range Blue Hold Sample in lab. Gold Tube HOLD Result Value Ref Range Gold Hold Sample in lab. Lawrence Tube Hold Result Value Ref Range Lawrence Hold Sample in lab. Urinalysis with reflex Culture Specimen: Clean Catch Urine Result Value Ref Range Glucose UA Negative Negative mg/dL Protein UA 100 (A) Negative mg/dL Bilirubin UA Negative Negative mg/dL Urobilinogen UA Normal Normal mg/dL pH UA 5.0 5.0 - 8.0 Blood UA Small (A) Negative mg/dL Ketones UA Trace (A) Negative mg/dL Nitrite UA Negative Negative Leukocytes UA Negative Negative mcL Appearance UA Turbid (A) Clear Spec [place]oca UA 1.027 1.006 - 1.030 Color UA Dark Yellow Yellow Culture Reflexed Yes Urinalysis Microscopic Exam Result Value Ref Range RBC UA 6 (H) 0 - 4 /HPF WBC UA 19 (H) 0 - 5 /HPF Bacteria UA Occasional (A) None /HPF Squam Epith UA 7 (H) <=4 /HPF Hyaline Cast UA <1 0 - 2 /LPF Gran Cast UA 1 (H) <=0 /LPF Amorph Marly UA Few (A) None /HPF Lactate, whole blood, send to lab ([facility] [place] [place]) Result Value Ref Range Lactate WB 1.4 0.5 - 2.2 mmol/L POCT Glucose Result Value Ref Range POC Glucose 83 65 - 199 mg/dL CMP w/fasting Glucose Result Value Ref Range Glucose Fasting 89 65 - 99 mg/dL BUN 39 (H) 8 - 18 mg/dL Creatinine 1.84 (H) 0.70 - 1.20 mg/dL Sodium 132 (L) 135 - 145 mmol/L Potassium 4.8 3.5 - 5.0 mmol/L Chloride 100 98 - 107 mmol/L CO2 23 22 - 31 mmol/L Anion Gap 9 5 - 15 mmol/L Calcium 8.5 8.5 - 10.5 mg/dL Total Protein 6.3 6.1 - 8.0 gm/dL Albumin 2.1 (L) 3.2 - 5.2 gm/dL AST 80 (H) 0 - 30 unit/L ALT 47 (H) 0 - 30 unit/L Alk Phos 263 (H) 35 - 105 unit/L Total Bilirubin 1.2 0.2 - 1.3 mg/dL Estimated GFR 28 (L) >=60 mL/min/1.73 m?? Hemogram Result Value Ref Range WBC 18.3 (H) 4.0 - 9.5 x10(3)/mcL RBC 2.89 (L) 4.00 - 5.21 x10(6)/mcL Hemoglobin 9.1 (L) 11.7 - 15.5 gm/dL Hematocrit 26.7 (L) 35.7 - 45.8 % MCV 92.4 82.6 - 94.4 fL MCH 31.5 27.1 - 32.0 pg MCHC 34.1 31.7 - 35.0 gm/dL Platelets 152 145 - 357 x10(3)/mcL RDWSD 44.1 37.0 - 46.0 fL RDWCV 12.9 11.5 - 14.1 % MPV 11.8 7.6 - 12.9 fL nRBC % Auto 0.0 % nRBC Abs Auto 0.000 0.000 - 0.000 x10(3)/mcL Differential, Automated Result Value Ref Range Neutrophils % 87.3 % Neutr Abs (ANC) 15.99 (H) 1 - 6 x10(3)/mcL Lymphocytes % 5.1 % Lymphocytes Abs 0.9 0.9 - 3.2 x10(3)/mcL Monocytes % 5.5 % Monocyte Abs 1.0 (H) 0.3 - 0.9 x10(3)/mcL Eosinophils % 0.2 % Eosinophils Abs 0.0 0.0 - 0.4 x10(3)/mcL Basophils % 0.2 % Basophils Abs 0.0 0.0 - 0.1 x10(3)/mcL Immature Gran % 1.70 % Anya Gran Abs 0.31 (H) 0.00 - 0.04 x10(3)/mcL Gold Tube HOLD Result Value Ref Range Gold Hold Sample in lab. Assessment and Plan: 65 y.o. female with a past medical history significant for T2DM, TIA, CKD, and pancreatitis who presents to the Emergency Department as a transfer from [facility] with concern for pancreatitis/cholangitis.Vital signs were within the normal limits at the time of presentation. Physical exam was notable for diffuse anasarca and R sided abdominal tenderness without signs of peritonitis. Initial differential diagnoses considered included persistent pancreatitis, iatrogenic anasarca, pancreatic pseudocyst, gallbladder remnant infection, and retained biliary stone with obstruction, among others. Lab work-up was notable for persistent leukocytosis, rising creatinine, Alk Phos, and direct bilirubin. She had received antibiotics prior to transfer, so I elected to not give her any further at the time as she had no infectious symptoms was afebrile and hemodynamically stable. I ordered CT abdomen & pelvis wo contrast given her eGFR of 29. I discussed his case with GI and general surgery who recommended hospital medicine admission for further evaluation and management. Cristian Miller MD Resident 01/29/21 1500 Associated attestation - Blanca Mitchell MD - 01/30/2021 6:12 AM EDT ED ATTENDING ATTESTATION NOTE The patient was seen in conjunction with the resident physician. I have independently performed thekey portions of the history and physical exam. I have reviewed the nursing notes, vital signs, and all diagnostic studies personally including labs, imaging studies and EKGs. I have discussed the details of the case with the resident and agree with the assessment and plan as described in the resident note above unless noted otherwise below. ED Course as of Jan 31 612WedJan 29, 2021 0151 Giving IVF * Mamta Suarez MD - 01/28/2021 4:42 PM EDT EM attending brief transfer acceptance note: Toyin Lion is a 65 y.o. who I accepted in transfer from [facility] The patient will be evaluated in the Emergency Department for pancreatitis The EM team will contact the Hospital Medicine team as needed The OSH does not agree to take the patient back in transfer after our evaluation and treatment. Transfer and stabilization prior to transfer were discussed SUMMARY: Discharged yesterday from Hospital Medicine service for pancreatitis and ERCP. Today at [facility] ED for worsening edema. Cholangitis, anasarca. Non-toxic 22K Zosyn. 3+ edema throughout, cardiomeg on CXR 11k BNP Lipase 3300. Mamta Suarez MD 01/28/21 1653 documented in this encounter Miscellaneous Notes * Plan of Care - Jazzy Suh RN - 02/03/2021 3:12 AM EDT OUTCOME EVALUATION NOTE: OUTCOME SUMMARY: A&Ox4, VSS on RA, reported 7-8/10 generalized lower back pain. PRN oxy given and lidocaine patches applied with good effect. Pt resting in bed with eyes closed for majority of shift. Independent in room. No acute events, safety maintained. PLAN MOVING FORWARD: Discharge INDIVIDUALIZED FALL PREVENTION INTERVENTIONS: Patient-specific fall risk factors per assessment: [current deficits]: Generalized weakness, Masimo, IV, increased pain Assistance [level of assistance required for transfers and ambulation]: IND Supervision [direct monitoring required during toileting and ADLs]: IND Surveillance [continuous indirect monitoring]: Call cunningham within reach, room near nursing station, purposeful rounding Patient-specific fall prevention interventions for sensory deficits provided, if applicable: [X] N/A CPG GOAL OUTCOME EVALUATION: * Plan of Care - Ghazala Shaffer RN - 02/02/2021 2:14 AM EDT OUTCOME EVALUATION NOTE: OUTCOME SUMMARY: A+OX4. VSS on RA. Assessment as documented. Pt reports low back pain, PRN oxycodone given, scheduled lidocaine patches applied, ice packs provided, good effect. Pt reports no SOB, and no numbness or tingling. Pt is tolerating her diet. Safety maintained, WCTM. PLAN MOVING FORWARD: Discharge planning. Pain management. Manage diet. Safety. Monitor VS. INDIVIDUALIZED FALL PREVENTION INTERVENTIONS: Patient-specific fall risk factors per assessment: [current deficits]: IV. Pain. Assistance [level of assistance required for transfers and ambulation]: IND Supervision [direct monitoring required during toileting and ADLs]: IND Surveillance [continuous indirect monitoring]: Masimo. Room near nursing station. Call cunningham within reach. Patient-specific fall prevention interventions for sensory deficits provided, if applicable: [X] N/A CPG GOAL OUTCOME EVALUATION: * Plan of Care - Hema Wheeler RN - 02/01/2021 5:18 AM EDT OUTCOME EVALUATION NOTE: OUTCOME SUMMARY: Alert and oriented x4. Complaints of pain to lower back and abd, prn meds administered during shift. Patient has continuous IV fluids infusing, IV intact. Will continue to monitor. PLAN MOVING FORWARD: Monitor labs and vitals Continue IV fluids INDIVIDUALIZED FALL PREVENTION INTERVENTIONS: Patient-specific fall risk factors per assessment: [current deficits]: lines Assistance [level of assistance required for transfers and ambulation]: SBA Supervision [direct monitoring required during toileting and ADLs]: SBA Surveillance [continuous indirect monitoring]: Masimo, bed alarm, call cunningham within reach, hourly rounding Patient-specific fall prevention interventions for sensory deficits provided, if applicable: N/A CPG GOAL OUTCOME EVALUATION: * Plan of Care - Trista Ordonez RN - 01/31/2021 5:24 PM EDT OUTCOME EVALUATION NOTE: OUTCOME SUMMARY: A&Ox4. VSS. Masimo on. Call cunningham in reach. Bed alarm on. - IVF cont. Closely monitor fluid status at this time. LE edema seems to be increasing. Resp statusWDL. Urine output, minimal. BS 30 ml (see doc flow for time). - C/O of pain, given oxy q4hr. PLAN MOVING FORWARD: pending INDIVIDUALIZED FALL PREVENTION INTERVENTIONS: Patient-specific fall risk factors per assessment: [current deficits]: lines/drains. Assistance [level of assistance required for transfers and ambulation]: none Supervision [direct monitoring required during toileting and ADLs]: SBA Surveillance [continuous indirect monitoring]: call cunningham, masimo, bed alarm. Patient-specific fall prevention interventions for sensory deficits provided, if applicable: [X] No CPG GOAL OUTCOME EVALUATION: * Plan of Care - Hema Wheeler RN - 01/31/2021 5:43 AM EDT OUTCOME EVALUATION NOTE: OUTCOME SUMMARY: Patient resting in bed, vitals stable on RA. Patient with complaints of pain to abdomen and lower back. Prn pain medication administered as needed. BM x1 this shift. No complaints of nausea, IV fluids infusing peripherally. No complaints of nausea. Patient bed in lowest position, bed alarm on and call light within reach. PLAN MOVING FORWARD: IVF Pain management Monitor labs and vitals INDIVIDUALIZED FALL PREVENTION INTERVENTIONS: Patient-specific fall risk factors per assessment: [current deficits]: Lines, pain Assistance [level of assistance required for transfers and ambulation]: SBA Supervision [direct monitoring required during toileting and ADLs]: SBA Surveillance [continuous indirect monitoring]: Masimo, hourly rounding, call light within reach, bed alarm. Patient-specific fall prevention interventions for sensory deficits provided, if applicable: N/A CPG GOAL OUTCOME EVALUATION: * Initial Assessments - Zohra Weaver RN - 01/30/2021 3:48 PM EDTSumoriana: MARYSOL Initial Assessment Office of Care Management Initial Assessment Zohra Weaver RN reviewed record Source of Information: medical record Reason for Hospitalization: 65 y.o. 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 Who is being admitted with concerns of pancreatitis following ERCP. ?? Hospitalizations Within the Past 30 Days: Yes. Toyin's last admission was on 01/17/21 with abdominal pain following an ERCP. Anticipated Length Of Stay (If known): 3-5 days. Current Decision-Making Capacity: Self. No AD on file. If AD's have not been completed unable, daughters Linda Bacon and Silvana Lion would be surrogate decision maker per [place] surrogate decision making law. (Only good for 90 days) Any patient receiving care at [facility] must abide by [place] law. The hierarchy for surrogate decision making is: (a) Patient???s spouse, or civil union partner or common law spouse unless there is a Rhona patientreceiving care at [facility] must abide by [place] law. The hierarchy for surrogate decision making is: (a) Patient???s spouse, or civil union partner or common law spouse unless there is a divorce proceeding, separation agreement, or restraining order limiting that person???s relationship with the patient. (b) Any adult son or daughter of the patient. Daughters Linda/Sadie (c) Either parent of the patient. (d) Any adult brother or sister of the patient. (e) Any adult grandchild of the patient. (f) Any grandparent of the patient. (g) Any adult aunt, uncle, niece, or nephew of the patient. (h) A close friend of the patient. (i) The agent with financial power of commercial attorney or a conservator appointed in accordance with RSA 464-A. (j) The guardian of the patient???s estate. Current Coping/Education/Information Needs: Patient understands plan of care and agrees with plan at this time. Current Functional Ability: Per nursing notes, 01/30/21@5:47am - stand by assist. Functional Status Prior to Admission: Independent Home Environment: lives in small house w/4 steps to enter her bed/bath all on the first floor. She has a granddaughter that stays in the upstairs bedroom Social & Family Supports/Community Resources: Family and friends support Behavioral Health History: None noted Substance Use/Abuse: Smokes medical marijuana nightly. Denies smoking, alcohol or other drug use. Other Pertinent/Service Specific Information: n/a Health/Prescription Coverage: Primary Insurance: AARP MANAGED MEDICARE Secondary Insurance: [employer] [place] Prescription Coverage: Yes, see above Preferred Pharmacy: [facility] Other: None idicated Primary Care Provider: Asia Gil DO [phone] Patient/Caregiver Goals of Treatment: Relieve pain and return home Potential Needs for Transition of Care: Rehab/SNF: not at this time Home Health: The patient, Toyin Lion, has been provided a list of Home Health Agencies/DME vendors which serve their preferred geographic area. A letter describing our affiliations was reviewed with them and they were educated about their right to choose where referrals are placed. CM Provided patient with [facility] Star Quality Rating for Home care hand out. Patient requests referral to [facility] PHONE: [phone] FAX: [phone]. Expected date of discharge: 02/03/21. Referral routed to the Career Manager for matching with agency/vendor and to provide any required information. DME: None needed at this time. Patient states she has walker, bath seat and compression socks at home. Dialysis: Not at this time. Community Resources: No Transportation: Pt drives as does her daughters and son in law picked her up from hospital for lastdischarge Other: None indicated Anticipated Barriers to Discharge/Special Considerations: Awaiting further assessment as patient approaches medical readiness. VNA pended and routed through [employer]. Patient has used this company in the past. Assessment: 65 year old, alert and oriented X 4, female who transfers to in patient at [facility] through [facility] Emergency Department for ongoing abdominal right upper quadrant pain and weakness. Plan: A member of the Care Management team will continue to monitor progress, follow for continuityof care and assist with transition of care planning. Zohra Weaver RN Pager: [phone] * Consult Note - Brian Steele MD - 01/30/2021 12:28 PM EDT [facility] Acute Care Surgery Consult Progress Note Consult Reason: Retained cystic stone in setting of abdominal pain and pancreatitis HPI: Toyin Lion is a 65 y.o. female w/ a hx of biopsy proven SIMMONS cirrhosis,??HTN, HLD, DM2, GERD, hx TIA, CKD stage 3b and s/p CCY in 2015 at [facility] with recurrent RUQ pain episodes since. She said she has had multiple workups without resolution and a few weeks ago, she had the pain return and u nderwent an US which revealed per documentation: retained stone in a cystic duct remnant vs. infundibulum with surrounding wall thickening. We don't have the images in our system. Other recent workup includes EGD/colo in December 2020 which by report was only notable for some benign polyps in colon,EGD normal. She was recently admitted to hospital medicine at [facility] from 01/17 to 01/27 after she underwent what was scheduled as an outpatient ERCP to attempt stone retrieval. Unfortunately, while they found a single small cholecystolithiasis adherent to the wall of the cystic stump/retained infundibulum, attempts to remove the stone were unsuccessful. Post procedure, she unfortunately developed a post-ERCP pancreatitis which was diagnosed on CT scan and with a lipase >3,000 on post-procedure day and post-op day 1 and then on 01/19 (post day 2), it was 891. She was managed with fluid resuscitation and pain control. She had an GETACHEW post CT w/ IV contrast. She was hospitalized for 10 days and notably her WBC had been uptrending the days prior to discharge (15.2 on 01/25, 21.8 on 01/26, 18.6 on 01/27). She also had a rising Cr on 01/27 but she demanded to be discharged despite recommendations to be monitored. She was discharged to home on 01/27 and per the patient, her daughter called GI today because she was so swollen and she was told to come to a local ED. She went to [facility] where her lipase was report edly 3300, WBC 22k and she was given zosyn and transferred to [facility] ED. General surgery was consulted for assistance in management considering she still c/o RUQ pain and the cystic stump/retained infundibulum. She denied any fever or recent sick contacts. Reported a bowel movement the day prior, passing flatus, and tolerating a diet. 24 Hour Events/ Subjective: - Patient continues to endorse right sided abdominal pain which she reports is unchanged - Has not had a bowel movement, denies flatus - WBC today 20.4 from 18.3 Physical Exam: Temp: [36.5 ??C (97.7 ??F)-36.7 ??C (98.1 ??F)] Heart Rate: [75-87] Resp: [12-20] BP: (117-162)/(52-81) SpO2: [92 %-99 %] Heart Rate from SpO2: [75 bpm-98 bpm] Gen: appears uncomfortable, lying on left side, A0x3 HEENT: KIERA, MMM CVS: RRR Pulm: CTAB, breathing without difficulty on RA GI: softly distended w/ edema, TTP in RUQ with an area of firmness in the deep tissues, non tympanitic, old lap port scars well healed, small bruise in right mid abdomen likely from an injection site, no masses/hernias MSK: WWP, 2+ edema/anasarca Vascular: palp pulses Neuro: moving all 4 extremities spontaneously, nonfocal Data independently reviewed: Recent Results (from the past 24 hour(s)) POCT Glucose Result Value Ref Range POC Glucose 83 65 - 199 mg/dL CMP w/fasting Glucose Result Value Ref Range Glucose Fasting 89 65 - 99 mg/dL BUN 39 (H) 8 - 18 mg/dL Creatinine 1.84 (H) 0.70 - 1.20 mg/dL Sodium 132 (L) 135 - 145 mmol/L Potassium 4.8 3.5 - 5.0 mmol/L Chloride 100 98 - 107 mmol/L CO2 23 22 - 31 mmol/L Anion Gap 9 5 - 15 mmol/L Calcium 8.5 8.5 - 10.5 mg/dL Total Protein 6.3 6.1 - 8.0 gm/dL Albumin 2.1 (L) 3.2 - 5.2 gm/dL AST 80 (H) 0 - 30 unit/L ALT 47 (H) 0 - 30 unit/L Alk Phos 263 (H) 35 - 105 unit/L Total Bilirubin 1.2 0.2 - 1.3 mg/dL Estimated GFR 28 (L) >=60 mL/min/1.73 m?? Hemogram Result Value Ref Range WBC 18.3 (H) 4.0 - 9.5 x10(3)/mcL RBC 2.89 (L) 4.00 - 5.21 x10(6)/mcL Hemoglobin 9.1 (L) 11.7 - 15.5 gm/dL Hematocrit 26.7 (L) 35.7 - 45.8 % MCV 92.4 82.6 - 94.4 fL MCH 31.5 27.1 - 32.0 pg MCHC 34.1 31.7 - 35.0 gm/dL Platelets 152 145 - 357 x10(3)/mcL RDWSD 44.1 37.0 - 46.0 fL RDWCV 12.9 11.5 - 14.1 % MPV 11.8 7.6 - 12.9 fL nRBC % Auto 0.0 % nRBC Abs Auto 0.000 0.000 - 0.000 x10(3)/mcL Differential, Automated Result Value Ref Range Neutrophils % 87.3 % Neutr Abs (ANC) 15.99 (H) 1 - 6 x10(3)/mcL Lymphocytes % 5.1 % Lymphocytes Abs 0.9 0.9 - 3.2 x10(3)/mcL Monocytes % 5.5 % Monocyte Abs 1.0 (H) 0.3 - 0.9 x10(3)/mcL Eosinophils % 0.2 % Eosinophils Abs 0.0 0.0 - 0.4 x10(3)/mcL Basophils % 0.2 % Basophils Abs 0.0 0.0 - 0.1 x10(3)/mcL Immature Gran % 1.70 % Anya Gran Abs 0.31 (H) 0.00 - 0.04 x10(3)/mcL Gold Tube HOLD Result Value Ref Range Gold Hold Sample in lab. POCT Glucose Result Value Ref Range POC Glucose 76 65 - 199 mg/dL POCT Glucose Result Value Ref Range POC Glucose 133 65 - 199 mg/dL POCT Glucose Result Value Ref Range POC Glucose 94 65 - 199 mg/dL CMP w/fasting Glucose Result Value Ref Range Glucose Fasting 94 65 - 99 mg/dL BUN 40 (H) 8 - 18 mg/dL Creatinine 1.82 (H) 0.70 - 1.20 mg/dL Sodium 132 (L) 135 - 145 mmol/L Potassium 4.6 3.5 - 5.0 mmol/L Chloride 101 98 - 107 mmol/L CO2 23 22 - 31 mmol/L Anion Gap 8 5 - 15 mmol/L Calcium 8.3 (L) 8.5 - 10.5 mg/dL Total Protein 6.4 6.1 - 8.0 gm/dL Albumin 2.1 (L) 3.2 - 5.2 gm/dL AST 87 (H) 0 - 30 unit/L ALT 49 (H) 0 - 30 unit/L Alk Phos 273 (H) 35 - 105 unit/L Total Bilirubin 1.0 0.2 - 1.3 mg/dL Estimated GFR 28 (L) >=60 mL/min/1.73 m?? Lipase Result Value Ref Range Lipase 524 (H) 0 - 60 unit/L Hemogram Result Value Ref Range WBC 20.4 (H) 4.0 - 9.5 x10(3)/mcL RBC 2.92 (L) 4.00 - 5.21 x10(6)/mcL Hemoglobin 9.0 (L) 11.7 - 15.5 gm/dL Hematocrit 26.8 (L) 35.7 - 45.8 % MCV 91.8 82.6 - 94.4 fL MCH 30.8 27.1 - 32.0 pg MCHC 33.6 31.7 - 35.0 gm/dL Platelets 173 145 - 357 x10(3)/mcL RDWSD 43.5 37.0 - 46.0 fL RDWCV 13.0 11.5 - 14.1 % MPV 11.4 7.6 - 12.9 fL nRBC % Auto 0.0 % nRBC Abs Auto 0.000 0.000 - 0.000 x10(3)/mcL Differential, Automated Result Value Ref Range Neutrophils % 83.3 % Neutr Abs (ANC) 17.02 (H) 1 - 6 x10(3)/mcL Lymphocytes % 6.3 % Lymphocytes Abs 1.3 0.9 - 3.2 x10(3)/mcL Monocytes % 8.0 % Monocyte Abs 1.6 (H) 0.3 - 0.9 x10(3)/mcL Eosinophils % 0.2 % Eosinophils Abs 0.0 0.0 - 0.4 x10(3)/mcL Basophils % 0.1 % Basophils Abs 0.0 0.0 - 0.1 x10(3)/mcL Immature Gran % 2.10 % Anya Gran Abs 0.42 (H) 0.00 - 0.04 x10(3)/mcL Scan, Peripheral Blood Result Value Ref Range Plat Estimate Normal RBC Morphology Abnormal Hypochromia Slight POCT Glucose Result Value Ref Range POC Glucose 105 65 - 199 mg/dL Imaging: CT w/ PO contrast (no IV) 01/28/21: IMPRESSION * Increased peripancreatic and periduodenal tracking into the Fallon's pouch and the pelvis in the setting of known pancreatitis. Evaluation of the pancreatic parenchyma is limited due to lack of IV contrast. * Interval loculation of an enlarged 5.5 x 5.5 x 4.1 cm thick-walled collection anterior to the hepatic flexure (series 3 image 70). Differential considerations include pseudocyst (more likely), walled off necrosis, and abscess. * Unchanged gallstone in the gallbladder/cystic duct remnant. * Thickening of the duodenum, likely reactive. HIDA 01/29/21: IMPRESSION Normal hepatic function with no evidence of biliary leak. MRCP 01/29/21: IMPRESSION 1. 2 small intraluminal signal voids seen in the common bile duct without biliary ductal dilatation. Possible retained calculi. 2. Pancreas: Mild diffuse edema. No pancreatic ductal dilatation. 3. Large peripherally enhancing partially loculated fluid collection surrounding the pancreatic head and uncinate process, as described above; possible pseudocyst, however, cannot exclude an abscess. ?? Impression: 65 y.o. comorbid female w/ SIMMONS cirrhosis,??HTN, HLD, DM2, GERD, TIA, CKD stage 3b and s/p CCY in 2016 c/b recurrent RUQ pain episodes since then with recently dx retained stone in likelycystic stump who underwent an unsuccessful ERCP attempt at stone retrieval on 01/17/21 at [facility] c/b post-ERCP pancreatitis followed by 10-day hospitalization discharged 01/28, now representing with worsening leukocytosis, elevated lipase, GETACHEW, ascites and abdominal pain concerning for worsening pancreatitis with possible acute sloane- pancreatic fluid collection vs. necrosis. On imaging, there is a small gallbladder stump that has a retained stone in it, most easily seen onERCP. She does appear to also possibly have stones in the common bile duct based on the MRCP. Nevertheless, given her pancreatitis, it would be best to wait at least 6 weeks and up to 3 months for her pancreatic inflammation to improve before intervening with a completion cholecystectomy. Recommendation: - Agree with aggressive IV fluid hydration, continued GI input - Blood cultures with NG x1 day - No plans for completion cholecystectomy at this time Emerald Louis MD 01/30/2021 ACS consult pager: [phone] Acute Care Surgery Attending Addendum: I have seen this patient and agree with the above note with the following additions and/or modifications. She reports to be feeling a little better, in no distress. Main issue at this time is pancreatitis. Does have a small remnant gall bladder that will be difficult to resect in the best of times but certainly not indicated with acute pancreatitis. This is an intervention that will not be done for weeks to months until inflammation has resolved. * Plan of Care - Hema Wheeler RN - 01/30/2021 5:47 AM EDT OUTCOME EVALUATION NOTE: OUTCOME SUMMARY: Patient is resting in bed quietly. No distress noted. Patient is alert and oriented x4. Patient with complaints of back pain, prn meds given throughout shift. Patient stand by assist to bathroom. Patient bed in lowest position, bed alarm on and call light within reach. Will continue to monitor patient. PLAN MOVING FORWARD: Monitor labs and vitals Antibiotics Pain management INDIVIDUALIZED FALL PREVENTION INTERVENTIONS: Patient-specific fall risk factors per assessment: [current deficits]: lines, pain, generalized weakness Assistance [level of assistance required for transfers and ambulation]: SBA Supervision [direct monitoring required during toileting and ADLs]: eyes on Surveillance [continuous indirect monitoring]: masimo, hourly rounding, call light within reach. Patient-specific fall prevention interventions for sensory deficits provided, if applicable: N/A CPG GOAL OUTCOME EVALUATION: * Consult Note - Shirley Ruiz - 01/29/2021 7:24 AM EDT GASTROENTEROLOGY & HEPATOLOGY CONSULTATION Initial Consult Note Requesting Provider: Katy Arce MD REASON FOR CONSULTATION ?Pancreatic pseudocyst HISTORY OF PRESENT ILLNESS Toyin Lion is a 65 y.o. female w/ a hx of biopsy proven SIMMONS cirrhosis, HTN, HLD, DM2, GERD, hx TIA, CKD stage 3b and s/p CCY in 2015 at [facility] with recurrent RUQ pain episodes since, presenting with recent choledocholithiasis s/p ERCP 01/17/21 c/b pancreatitis presenting with several weeks of constant nonprogressive RUQ/epigastric abdominal pain up to 10/10 intensity without radiation, worse with palpation, no alleviating factors. Patient presents after recent outpatient ERCP for choledocholithiasis c/b post- ERCP pancreatitis. Her ERCP for attempted duodenoscopy and EHL was unsuccessful in stone retrieval of cholecystolithiasis. She was admitted and discharged 01/27 but patient states she hadn't felt improved at that point. She states since then, she has had worsening central and RUQ pain and swelling. No diarrhea/constipation, no melena/hematochezia or hematemesis. Has been tolerating po but with increased pain after eating. Based on prior imaging, she has known retained stone in a cystic duct remnant vs. infundibulum withsurrounding wall thickening. Recent EGD/colo in December 2020 [facility]. Recent CT scan 01/19 after ERCP was c/w pancreatitis, lipase >3000. WBC 20, Hb 8.7. TB 1/DB 0.6, LFTs improved from discharge AST 66/ALT 43, ALP up to 200s. Lactate 1.4 On representation, she remains HDS, afebrile. Lipase 1294. Repeat CT obtained showing edematous pancreas and 4 x 5.5cm loculated fluid collection anterior to hepatic flexure. General surgery was consulted for completion CCY of cystic stump/retained infundibulum, pending recs. ROS: 14 systems reviewed and positive for those in HPI, otherwise negative PAST MEDICAL HISTORY: Past Medical History: Diagnosis Date CKD (chronic kidney disease) 04/05/2020 Delirium 04/05/2020 Diabetes mellitus type 2, uncomplicated 05/14/2014 Hx-TIA (transient ischemic attack) 05/14/2014 Hyperlipidemia 05/28/2014 Off statin due to foot pain side effect Hypertension 05/28/2014 Restless legs syndrome (RLS) 04/05/2020 Past Surgical History: Procedure Laterality Date PRO ERCP,DIAGNOSTIC N/A 01/17/2021 ERCP performed by Eliel Leigh MD at [facility] ENDOSCOPY MEDICATIONS piperacillin-tazobactam 3.375 g Intravenous Q8H DULoxetine DR 30 mg Oral Daily gabapentin 100 mg Oral Daily at Noon gabapentin 200 mg Oral BID metoprolol tartrate 12.5 mg Oral Q6H mirtazapine 7.5 mg Oral Nightly pantoprazole EC 40 mg Oral Daily sodium chloride 0.9 % (flush) 5 mL Intravenous BID heparin (porcine) 5,000 Units Subcutaneous Q8H BASIL senna-docusate 2 tablet Oral BID lidocaine 1 patch Transdermal Q24H And lidocaine 1 patch Transdermal Q24H sodium chloride 0.9% 200 mL/hr (01/29/21 0133) oxyCODONE, sodium chloride 0.9 % (flush), lidocaine, magnesium hydroxide, melatonin ALLERGIES Allergies Allergen Reactions Benzodiazepines Other (See Comments) Paradoxical reaction to benzodiazepines House Dust Hydrocodone-Acetaminophen Itching Metoclopramide Mold Extracts Pollen Extracts Propoxyphene Hcl Nausea And Vomiting Unknown [Unclassified Drug] Most environmental allergies: grass, workman, trees,pollen SOCIAL HISTORY Social History Socioeconomic History Marital status: Spouse name: Not on file Number of children: Not on file Years of education: Not on file Highest education level: Not on file Occupational History Not on file Tobacco Use Smoking status: Never Smoker Smokeless tobacco: Never Used Tobacco comment: uses medical marijauna Substance and Sexual Activity Alcohol use: Not Currently Drug use: Yes Frequency: 7.0 times per week Types: Marijuana Comment: nightly-has card Sexual activity: Not Currently Other Topics Concern Not on file Social History Narrative Not on file Social Determinants of Health Financial Resource Strain: Difficulty of Paying Living Expenses: Food Insecurity: Worried About Running Out of Food in the Last Year: Ran Out of Food in the Last Year: Transportation Needs: Lack of Transportation (Medical): Lack of Transportation (Non-Medical): Physical Activity: Days of Exercise per Week: Minutes of Exercise per Session: Stress: Feeling of Stress : Social Connections: Frequency of Communication with Friends and Family: Frequency of Social Gatherings with Friends and Family: Attends Sikhism Services: Active Member of Clubs or Organizations: Attends Club or Organization Meetings: Marital Status: Intimate Partner Violence: Fear of Current or Ex-Partner: Emotionally Abused: Physically Abused: Sexually Abused: FAMILY HISTORY Denies family history of pancreatic disease in mother or father Vitals: 01/29/21 0330 01/29/21 0430 01/29/21 0530 01/29/21 0630 BP: BP Location (NBP): Patient Position: Pulse: 83 86 86 93 Resp: 14 16 14 18 SpO2: 98% 94% 95% 98% Weight: PHYSICAL EXAM GENERAL: Obese woman lying in bed in pain, tired appearing HEENT: AT/NC, sclerae anicteric, dry moist mucous membranes CHEST: CTA CARDIAC: RRR, normal S1/S2, no appreciable murmurs ABDOMEN: Soft, mildly distended, tender to RUQ, epigastric region. No guarding or rebound. NBS. EXT: Warm, no edema NEURO: Grossly intact, moves all extremities SKIN: No jaundice LABS: Lab Results Component Value Date Sodium 133 (L) 01/28/2021 Potassium 4.4 01/28/2021 Chloride 100 01/28/2021 CO2 24 01/28/2021 BUN 35 (H) 01/28/2021 Creatinine 1.80 (H) 01/28/2021 Glucose Lvl 123 01/28/2021 CBC Lab Results Component Value Date WBC 20.2 (H) 01/28/2021 Hemoglobin 8.7 (L) 01/28/2021 Hematocrit 25.9 (L) 01/28/2021 Platelets 123 (L) 01/28/2021 LFT's Lab Results Component Value Date Alk Phos 269 (H) 01/28/2021 AST 66 (H) 01/28/2021 Albumin 1.9 (L) 01/28/2021 Bili, Direct 0.6 (H) 01/28/2021 Total Bilirubin 1.0 01/28/2021 ALT 43 (H) 01/28/2021 Total Protein 6.1 01/28/2021 IMAGING: Reviewed in eDH 01/29/21 CT A/P IMPRESSION * Increased peripancreatic and periduodenal tracking into the Fallon's pouch and the pelvis in the setting of known pancreatitis. Evaluation of the pancreatic parenchyma is limited due to lack of IV contrast. * Interval loculation of an enlarged 5.5 x 5.5 x 4.1 cm thick-walled collection anterior to the hepatic flexure (series 3 image 70). Differential considerations include pseudocyst (more likely), walled off necrosis, and abscess. * Unchanged gallstone in the gallbladder/cystic duct remnant. * Thickening of the duodenum, likely reactive. ENDOSCOPY: Reviewed in e[facility] 01/17/21 ERCP Impression: - A single small cholecystolithiasis was found adherent to the wall of the gallbladder remanent - Ductoscopy was performed and attempts to disrupt and remove the stone with EHL, and Spy Basket and Spy snare were unsuccessful. Recommendation: - Discharge patient to home. - Clear liquid diet for 2 hours. - Observe patient's clinical course. - Return to referring physician and consider referral to surgery for completion cholecystectomy. IMPRESSION: Toyin Lion is a 65 y.o. female w/ a hx of biopsy proven SIMMONS cirrhosis, HTN, HLD, DM2, GERD, hx TIA, CKD stage 3b and s/p CCY in 2016 at [facility] with recurrent RUQ pain episodes since, presenting with recent choledocholithiasis s/p ERCP 01/17/21 c/b pancreatitis presenting with abdominal pain andsuspected sloane-pancreatic fluid collection. Imaging reviewed with General Surgery and Radiology. CT findings most consistent with pancreatitis complications of sloane-pancreatic collecting vs. Acute necrotizing collection/evolving WON. At this time, she is presenting from acute episode pancreatitis and would recommend avoiding any drainage of collection until more time has passed to evaluate if this will organize or resolve. We discussed thepossibility of bile leak; no air in bile ducts seen, but HIDA scan would help to clarify this. Her choledocholithiasis seen on prior CT now appears resolved, with stable cystic duct stone. Agree her management should include completion CCY but in this acute inflammatory period may want to monitor until this improves; in the mean time an MRCP will help evaluate extent of stone burden. Continue treatment for acute pancreatitis from recent ERCP. RECOMMENDATIONS: -Continue aggressive hydration with LR -Monitor UO -Analgesia per primary team -NPO pending additional images -Appreciate General Surgery recs -MRCP to evaluate for choledocholithiasis -HIDA scan to evaluate for bile leak The plan as outlined above was discussed with Dr. Allison Ruiz M.D. Fellow in Gastroenterology and Hepatology Pager #[phone] 01/29/2021 Associated attestation - Brian Cooper MD - 01/29/2021 11:29 AM EDT I have seen and evaluated the patient with Dr. Ruiz. I have reviewed the fellow's history during the encounter and I agree with the details as written above. My physical examination confirms the above findings. The assessment and plan were formulated in discussion with me at the time of the encounter and I agree with them as documented. Brian Cooper MD, [employer]pension Aidesewer separation designer Section of Gastroenterology and Hepatology * Consult Note - Dagoberto Clemons MD - 01/29/2021 1:20 AM EDT [facility] Acute Care Surgery Consult Note Consultation Requested by: Kayt Arce MD Consult Reason: Retained cystic stone in setting of abdominal pain and pancreatitis Patient Location: ED 10A HPI: Toyin Lion is a 65 y.o. female w/ a hx of biopsy proven SIMMONS cirrhosis,??HTN, HLD, DM2, GERD, hx TIA, CKD stage 3b and s/p CCY in 2015 at [facility] with recurrent RUQ pain episodes since. She said she has had multiple workups without resolution and a few weeks ago, she had the pain return and u nderwent an US which revealed per documentation: retained stone in a cystic duct remnant vs. infundibulum with surrounding wall thickening. We don't have the images in our system. Other recent workup includes EGD/colo in December 2020 which by report was only notable for some benign polyps in colon,EGD normal. She was recently admitted to hospital medicine at [facility] from 01/17 to 01/27 after she underwent what was scheduled as an outpatient ERCP to attempt stone retrieval. Unfortunately, while they found a single small cholecystolithiasis adherent to the wall of the cystic stump/retained infundibulum, attempts to remove the stone were unsuccessful. Post procedure, she unfortunately developed a post-ERCP pancreatitis which was diagnosed on CT scan and with a lipase >3,000 on post-procedure day and post-op day 1 and then on 01/19 (post day 2), it was 891. She was managed with fluid resuscitation and pain control. She had an GETACHEW post CT w/ IV contrast. She was hospitalized for 10 days and notably her WBC had been uptrending the days prior to discharge (15.2 on 01/25, 21.8 on 01/26, 18.6 on 01/27). She also had a rising Cr on 01/27 but she demanded to be discharged despite recommendations to be monitored. She was discharged to home on 01/27 and per the patient, her daughter called GI today because she was so swollen and she was told to come to a local ED. She went to [facility] where her lipase was report edly 3300, WBC 22k and she was given zosyn and transferred to [facility] ED. General surgery was consulted for assistance in management considering she still c/o RUQ pain and the cystic stump/retained infundibulum. She denied any fever or recent sick contacts. Reported a bowel movement the day prior, passing flatus, and tolerating a diet. Code Status/Goals of Care: Full PMH/PSH: Past Medical History: Diagnosis Date ??? CKD [...] ERCP performed by Eliel Leigh MD at [facility]COPY MEDICATIONS: No current facility-administered medications on file prior to encounter. Current Outpatient Medications on File Prior to Encounter Medication Sig Dispense Refill ??? acetaminophen (Tylenol) 325 mg Tablet Take [...] capsule by mouth daily. 30tablet 11 ??? lisinopriL (Prinivil;Zestril) 10 mg Tablet Take 1 tablet by mouth daily. 90 tablet 3 ??? pantoprazole EC (Protonix) 40 mg Tablet, Delayed Release (E.C.) Take 1 tablet by mouth daily. 90 tablet 3 ??? multivitamin (THERAGRAN) Tablet Take 1 tablet by mouth daily. ??? mirtazapine (REMERON) 7.5 mg Tablet Take 7.5 mg by mouth nightly. ALLERGIES: Allergies Allergen Reactions ??? Benzodiazepines Other (See Comments) Paradoxical reaction to benzodiazepines ??? House Dust ??? Hydrocodone-Acetaminophen Itching ??? Metoclopramide ??? Mold Extracts ??? Pollen Extracts ??? Propoxyphene Hcl Nausea And Vomiting ??? Unknown [Unclassified Drug] Most environmental allergies: grass, workman, trees,pollen FAMILY HISTORY: Denies history of bleeding or clotting disorders. Denies history of reactions to anesthesia. SOCIAL HISTORY: Social History Socioeconomic History ??? Marital status: [...] Gatherings with Friends and Family: ??? Attends Sikhism Services: ??? Active Member of Clubs or Organizations: ??? Attends Club or Organization Meetings: ??? Marital Status: Intimate Partner Violence: ??? Fear of Current or Ex-Partner: ??? Emotionally Abused: ??? Physically Abused: ??? Sexually Abused: REVIEW OF SYSTEMS: As stated above, otherwise ten system review negative Physical Exam: Temp: -- Heart Rate: [85-89] Resp: [13-16] BP: (118-139)/(47-56) SpO2: [93 %-100 %] Heart Rate from SpO2: [38 bpm-89 bpm] Gen: appears uncomfortable, lying on left side, A0x3 HEENT: KIERA, MMM CVS: RRR Pulm: CTAB, breathing comfortably on RA GI: softly distended w/ edema, TTP in RUQ with an area of firmness in the deep tissues, non tympanitic, old lap port scars well healed, small bruise in right mid abdomen likely from an injection site, no masses/hernias MSK: WWP, 2+ edema/anasarca Vascular: palp pulses Neuro: moving all 4 extremities spontaneously, nonfocal Data independently reviewed: Recent Results (from the past 24 hour(s)) COVID-19 PCR Specimen: Nasopharyngeal Swab Symptoms->Surveillance Result Value Ref Range Rapid SARS-CoV-2 RNA Not Detected Not Detected SARS-CoV-2 Source LEAD PYTHON DEVELOPER Swab Basic Metabolic Panel (non-fasting) Result Value Ref Range Glucose Lvl 123 65 - 199 mg/dL BUN 35 (H) 8 - 18 mg/dL Creatinine 1.80 (H) 0.70 - 1.20 mg/dL Sodium 133 (L) 135 - 145 mmol/L Potassium 4.4 3.5 - 5.0 mmol/L Chloride 100 98 - 107 mmol/L CO2 24 22 - 31 mmol/L Anion Gap 9 5 - 15 mmol/L Calcium 8.3 (L) 8.5 - 10.5 mg/dL Estimated GFR 29 (L) >=60 mL/min/1.73 m?? Hepatic Function Panel Result Value Ref Range Total Protein 6.1 6.1 - 8.0 gm/dL Albumin 1.9 (L) 3.2 - 5.2 gm/dL AST 66 (H) 0 - 30 unit/L ALT 43 (H) 0 - 30 unit/L Alk Phos 269 (H) 35 - 105 unit/L Total Bilirubin 1.0 0.2 - 1.3 mg/dL Bili, Direct 0.6 (H) 0.0 - 0.3 mg/dL Lipase Result Value Ref Range Lipase 1,294 (H) 0 - 60 unit/L Hemogram Result Value Ref Range WBC 20.2 (H) 4.0 - 9.5 x10(3)/mcL RBC 2.75 (L) 4.00 - 5.21 x10(6)/mcL Hemoglobin 8.7 (L) 11.7 - 15.5 gm/dL Hematocrit 25.9 (L) 35.7 - 45.8 % MCV 94.2 82.6 - 94.4 fL MCH 31.6 27.1 - 32.0 pg MCHC 33.6 31.7 - 35.0 gm/dL Platelets 123 (L) 145 - 357 x10(3)/mcL RDWSD 44.3 37.0 - 46.0 fL RDWCV 12.9 11.5 - 14.1 % MPV 12.2 7.6 - 12.9 fL nRBC % Auto 0.0 % nRBC Abs Auto 0.000 0.000 - 0.000 x10(3)/mcL Differential, Automated Result Value Ref Range Neutrophils % 88.5 % Neutr Abs (ANC) 17.88 (H) 1 - 6 x10(3)/mcL Lymphocytes % 4.7 % Lymphocytes Abs 0.9 0.9 - 3.2 x10(3)/mcL Monocytes % 4.9 % Monocyte Abs 1.0 (H) 0.3 - 0.9 x10(3)/mcL Eosinophils % 0.1 % Eosinophils Abs 0.0 0.0 - 0.4 x10(3)/mcL Basophils % 0.5 % Basophils Abs 0.1 0.0 - 0.1 x10(3)/mcL Immature Gran % 1.30 % Anya Gran Abs 0.27 (H) 0.00 - 0.04 x10(3)/mcL Blue Tube HOLD Result Value Ref Range Blue Hold Sample in lab. Gold Tube HOLD Result Value Ref Range Gold Hold Sample in lab. Lawrence Tube Hold Result Value Ref Range Lawrence Hold Sample in lab. Urinalysis with reflex Culture Specimen: Clean Catch Urine Result Value Ref Range Glucose UA Negative Negative mg/dL Protein UA 100 (A) Negative mg/dL Bilirubin UA Negative Negative mg/dL Urobilinogen UA Normal Normal mg/dL pH UA 5.0 5.0 - 8.0 Blood UA Small (A) Negative mg/dL Ketones UA Trace (A) Negative mg/dL Nitrite UA Negative Negative Leukocytes UA Negative Negative mcL Appearance UA Turbid (A) Clear Spec [place] UA 1.027 1.006 - 1.030 Color UA Dark Yellow Yellow Culture Reflexed Yes Urinalysis Microscopic Exam Result Value Ref Range RBC UA 6 (H) 0 - 4 /HPF WBC UA 19 (H) 0 - 5 /HPF Bacteria UA Occasional (A) None /HPF Squam Epith UA 7 (H) <=4 /HPF Hyaline Cast UA <1 0 - 2 /LPF Gran Cast UA 1 (H) <=0 /LPF Amorph Marly UA Few (A) None /HPF Lactate, whole blood, send to lab ([facility] [place] [place]) Result Value Ref Range Lactate WB 1.4 0.5 - 2.2 mmol/L Imaging: CT w/ PO contrast (no IV) 01/28/21: Pending RUQ US [facility] 12/29/2020 Retained stone in cystic duct w/ wall thickening no fluid CT Abd/Pelvis 01/19/2021 1. Small, approximately 2 mm stone within the distal CBD secondary to residual choledocholithiasis. 2. Mild to moderate predominantly perihepatic ascites secondary to known pancreatitis. No evidence of drainable fluid collections. Impression: 65 y.o. comorbid female w/ SIMMONS cirrhosis,??HTN, HLD, DM2, GERD, TIA, CKD stage 3b and s/p CCY in 2016 c/b recurrent RUQ pain episodes since then with recently dx retained stone in likelycystic stump who underwent an unsuccessful ERCP attempt at stone retrieval on 01/17/21 at [facility] c/b post-ERCP pancreatitis followed by 10-day hospitalization d/c-ed yesterday, now representing with worsening leukocytosis, elevated lipase, GETACHEW, ascites and abdominal pain concerning for worsening pancreatitis with possible acute sloane- pancreatic fluid collection vs. necrosis. Other intra-abdominal source for inflammation/infection to be evaluated with a PO contrast (non IV) CT scan. 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 Recommendation: - Admit to medicine with continued IVF resuscitation - Blood cultures - CT with PO contrast to assess for intra-abdominal sources of her inflammatory state. May need GI interventions as indicated. Surgery will continue to follow pending CT scan results. Dagoberto Clemons MD 01/29/2021 ACS consult pager: [phone] * ED Triage - Laisha Rivera RN - 01/28/2021 7:19 PM EDT Pt brought in from OSH for edema and pancreatitis pain that has been occurring since patient was discharged from our inpatient unit yesterday. Pt. Had ERCP where the physician stated there may havebeen some pancreas irritation that could have cause pancreatitis. Pt. Stated she has gained 22 pounds from being in the hospital for 10 days. Pt. Vitals are stable, ppt. States discomfort in upper right quadrant. HPI (Adult) Stated Reason for Visit: very swollen and gained 22 pounds in 10 days History Obtained From: patient, EMS documented in this encounter Plan of Treatment Upcoming Encounters Date Type Department Care Team (Latest Contact Info) Description 05/08/2024 10:30 AM EDT Hospital [place] [phone] Bk Contreras MD [facility] [place] [address] 05/08/2024 10:30 AM EDT - 05/08/2024 11:00 AM EDT Surgery Pain [place] [phone] Bk Contreras MD [facility] [place] [address] INJECTION, ANESTHETIC AGENT AND/OR STEROID, TRANSFORAMINAL EPIDURAL, LUMBAR OR SACRAL, SINGLE LEVEL (WRVU 1.9) 05/12/2024 1:00 PM EDT Office Visit Cardiology at [place] [phone] Sadi Styles MD [facility] [place] [address] 05/29/2024 10:15 AM EDT TH Visit (TeleHealth) [place] [phone] Natalee Sanchez APRN [facility] [place] [address] Scheduled Procedures Name Priority Associated Diagnoses Date/Ti me INJECTION, ANESTHETIC AGENT AND/OR STEROID, TRANSFORAMINAL EPIDURAL, LUMBAR OR SACRAL, SINGLE LEVEL (WRVU 1.9) Left lumbar radiculopathy 05/08/2024 10:30 AM EDT Scheduled Referrals Name Type Priority Associated Diagnoses Order Schedule Referral to Gastroenterology Outpatient Referral Routine Pancreatic pseudocyst Cystic duct calculus Ordered: 02/03/2021 documented as of this encounter Procedures Procedure Name Priority Date/Time Associated Diagnosis Comments POCT GLUCOSE Routine 02/03/2021 6:33 AM EDT HC VENIPUNCTURE Routine 02/03/2021 2:45 AM EDT HEMOGRAM Routine 02/03/2021 2:45 AM EDT DIFFERENTIAL, AUTOMATED Routine 02/04/20 2:45 AM EDT HC CBC,PLT & AUTO DIFF Routine 2:45 AM EDT POCT GLUCOSE Routine 02/02/2021 10:02 PM EDT POCT GLUCOSE Routine 02/02/2021 4:16 PM EDT POCT GLUCOSE Routine 02/02/2021 12:07 PM EDT POCT GLUCOSE Routine 02/02/2021 6:49 AM EDT HC VENIPUNCTURE Routine 02/02/2021 2:26 AM EDT HEMOGRAM Routine 02/02/2021 2:26 AM EDT DIFFERENTIAL, AUTOMATED Routine 02/03/20 2:26 AM EDT HC CBC,PLT & AUTO DIFF Routine 2:26 AM EDT POCT GLUCOSE Routine 02/01/2021 10:43 PM EDT POCT GLUCOSE Routine 02/01/2021 4:01 PM EDT POCT GLUCOSE Routine 02/01/2021 11:09 AM EDT POCT GLUCOSE Routine 02/01/2021 6:46 AM EDT CMP W/FASTING GLUCOSE Routine 02/01/2021 6:15 AM EDT HEMOGRAM Routine 02/01/2021 6:15 AM EDT DIFFERENTIAL, AUTOMATED Routine 02/02/20 6:15 AM EDT HC CBC,PLT & AUTO DIFF Routine 6:15 AM EDT POCT GLUCOSE Routine 01/31/2021 10:04 PM EDT POCT GLUCOSE Routine 01/31/2021 4:11 PM EDT POCT GLUCOSE Routine 01/31/2021 11:22 AM EDT POCT GLUCOSE Routine 01/31/2021 6:32 AM EDT HC VENIPUNCTURE Routine 01/31/2021 6:20 AM EDT HEMOGRAM Routine 01/31/2021 6:20 AM EDT DIFFERENTIAL, AUTOMATED Routine 02/01/20 6:20 AM EDT HC CBC,PLT & AUTO DIFF Routine 6:20 AM EDT POCT GLUCOSE Routine 01/30/2021 9:21 PM EDT POCT GLUCOSE Routine 01/30/2021 4:29 PM EDT POCT GLUCOSE Routine 01/30/2021 11:12 AM EDT HC VENIPUNCTURE Routine 01/30/2021 8:22 AM EDT SCAN, PERIPHERAL BLOOD Routine 8:22 AM EDT HEMOGRAM Routine 01/30/2021 8:22 AM EDT DIFFERENTIAL, AUTOMATED Routine 01/31/20 8:22 AM EDT HC CBC,PLT & AUTO DIFF Routine 8:22 AM EDT HC LIPASE Routine 01/30/2021 8:22 AM EDT POCT GLUCOSE Routine 01/30/2021 6:46 AM EDT POCT GLUCOSE Routine 01/29/2021 9:04 PM EDT MRI CHOLANGIOPANCREATOGRAPHY WWO CONTRAST STAT 01/29/2021 7:52 PM EDT POCT GLUCOSE Routine 01/29/2021 4:43 PM EDT NM BILIARY TRACT IMAGING STAT 021 1:08 PM EDT CMP W/FASTING GLUCOSE STAT 01/29/2021 12:45 PM EDT HEMOGRAM STAT 01/29/2021 12:45 PM EDT DIFFERENTIAL, AUTOMATED STAT 01/30/20 12:45 PM EDT GOLD TUBE HOLD STAT 01/29/2021 12:45 PM EDT HC CBC,PLT & AUTO DIFF STAT 12:45 PM EDT POCT GLUCOSE Routine 01/29/2021 12:[address] ABDOMEN AND PELVIS WO CONTRAST STAT 01/29/2021 3:56 AM EDT HC BLOOD CULTURE- STAT 01/29/2021 1:3 3 AM EDT HC L-LACTATE STAT 01/29/2021 12:23 AM EDT URINALYSIS MICROSCOPIC EXAM STAT 01/10 9:26 PM EDT URINALYSIS WITH REFLEX CULTURE STAT 0 01/28/2021 9:26 PM EDT URINE CULTURE STAT 01/28/2021 9:26 PM EDT LAWRENCE TUBE HOLD STAT 01/28/2021 7:55 PM EDT HEMOGRAM STAT 01/28/2021 7:55 PM EDT DIFFERENTIAL, AUTOMATED STAT 01/29/20 7:55 PM EDT GOLD TUBE HOLD STAT 01/28/2021 7:55 PM EDT BLUE TUBE HOLD STAT 01/28/2021 7:55 PM EDT HC CBC,PLT & AUTO DIFF STAT 7:55 PM EDT HC LIPASE STAT 01/28/2021 7:55 PM EDT HEPATIC FUNCTION PANEL STAT 7:55 PM EDT BASIC METABOLIC PANEL (NON-FASTING) STAT 01/28/2021 7:55 PM EDT RAPID COVID-19 PCR ([facility]) STAT 01/28/2021 7:42 PM EDT documented in this encounter Results * POCT Glucose (02/03/2021 6:33 AM EDT) [facility] POC Glucose 181 65 - 199 mg/dL [facility] Comment: Supplemental ranges: <140 mg/dL before meals <180 mg/dL all other times of the day Blood specimen (specimen) 02/03/2021 6:33 AM EDT 02/03/2021 6:33 AM EDT Travis Callahan MD POINT OF CARE TEST O RDERABLES [facility] [place] [address] * (ABNORMAL) Differential, Automated (02/03/2021 2:45 AM EDT) [facility] Neutrophils % 80.4 % [facility] Neutr Abs (ANC) 12.32(H) 1.70 - 6.10 x10(3)/mc L [facility] Lymphocytes % 10.7 % [facility] Lymphocytes Abs 1.6 0.9 - 3.2 x10(3)/mc L [facility] Monocytes % 6.9 % [facility] Monocyte Abs 1.0(H) 0.3 - 0.9 x10(3)/mc L [facility] Eosinophils % 0.4 % [facility] Eosinophils Abs 0.1 0.0 - 0.4 x10(3)/[facility] Basophils % 0.2 % [facility] Basophils Abs 0.0 0.0 - 0.1 x10(3)/[facility] Immature Gran % 1.40 % [facility] Comment: Immature granulocytes(IG's)percentage and absolute count will include metamyelocytes, myelocytes, and promyelocytes. Blood smears from CBCs yielding IG's will be scanned manually for concordance. If this scan disagrees with the automated IG or if promyelocytes are noted, a manual differential will be performed. Anya Gran Abs 0.21(H) 0.00 - 0.04 x10(3)/[facility] Blood specimen (specimen) 02/03/2021 2:45 AM EDT 02/03/2021 2:51 AM EDT Narrative Resulting Agency Comment Spec In Lab Freddie Montes MD HEMATOLOGY ORDERABLE S [facility] [place] [address] * (ABNORMAL) Hemogram (02/03/2021 2:45 AM EDT) WBC 15.3(H) 4.0 - 9.5 x10(3)/[facility] RBC 2.55(L) 4.00 - 5.21 x10(6)/[facility] Hemoglobin 7.9(L) 11.7 - 15.5 gm/dL [facility] Hematocrit 25.2(L) 35.7 - 45.8 % [facility] MCV 98.8(H) 82.6 - 94.4 fL [facility] MCH 31.0 27.1 - 32.0 pg [facility] MCHC 31.3(L) 31.7 - 35.0 gm/dL [facility] Platelets 207 145 - 357 x10(3)/[facility] RDWSD 46.6(H) 37.0 - 46.0 fL [facility] RDWCV 13.0 11.5 - 14.1 % [facility] MPV 11.3 7.6 - 12.9 [facility] nRBC % Auto 0.0 % [facility] nRBC Abs Auto 0.000 0.000 - 0.000 x10(3)/[facility] Blood specimen (specimen) 02/03/2021 2:45 AM EDT 02/03/2021 2:51 AM EDT Narrative Resulting Agency Comment Spec In Lab Freddie Montes MD HEMATOLOGY ORDERABLE S Performing Organization Address City/State/[facility] Co de Phone Number [facility] [place] [address] * (ABNORMAL) CMP w/fasting Glucose (02/03/2021 2:45 AM EDT) Glucose Fasting 121(H) 65 - 99 mg/dL [facility] Comment: ?Fasting* Glucose Interpretive [...] of Diabetes Mellitus, Position Statement from the [employer]. ??Diabetes Care, Volume 33, Supplement 1, Oct 2009 BUN 26(H) 8 - 18 mg/dL [facility] Creatinine 1.24(H) 0.70 - 1.20 mg/dL [facility] Sodium 132(L) 135 - 145 mmol/L [facility] Potassium 4.6 3.5 - 5.0 mmol/L [facility] Comment: Please note: ??Patients with WBC >100,000 may have falsely elevated Potassium levels. ??For accurate Potassium quantification in these patients send serum separator tube (gold top) for subsequent determinations. ??Contact the Clinical Chemistry Laboratory if there are any questions. Chloride 100 98 - 107 mmol/L [facility] CO2 25 22 - 31 mmol/L [facility] Anion Gap 7 5 - 15 mmol/L [facility] Calcium 8.4(L) 8.5 - 10.5 mg/dL [facility] Total Protein 6.8 6.1 - 8.0 gm/dL [facility] Albumin 2.2(L) 3.2 - 5.2 gm/dL [facility] AST 52(H) 0 - 30 unit/L [facility] ALT 34(H) 0 - 30 unit/L [facility] Alk Phos 235(H) 35 - 105 unit/L [facility] Total Bilirubin 0.6 0.2 - 1.3 mg/dL [facility] Estimated GFR 45(L) >=60 mL/min/1. 73 m?? [facility] Comment: This patient? s estimated glomerular filtration rate (eGFR) is between 45 mL/min/1.73 m2 (patients with less muscle mass) and 52 mL/min/1.73 m2 (patients with more muscle mass) [...] in addition to eGFR. Blood specimen (specimen) 02/03/2021 2:45 AM EDT 02/03/2021 2:51 AM EDT Narrative Resulting Agency Comment Spec In Lab Katy Arce MD CHEMISTRY ORDERABLES Performing Organization Address City/[facility]/ZIP Co de Phone Number [facility] [place] [address] * POCT Glucose (02/02/2021 10:02 PM EDT) POC Glucose 146 65 - 199 mg/dL [facility] Comment: Supplemental ranges: <140 mg/dL before meals <180 mg/dL all other times of the day Blood specimen (specimen) 02/02/2021 10:02 PM EDT 02/02/2021 10:02 PM EDT Travis Callahan MD POINT OF CARE TEST O RDERABLES Performing Organization Address [facility]/ZIP Co de Phone Number [facility] [place] [address] * POCT Glucose (02/02/2021 4:16 PM EDT) POC Glucose 180 65 - 199 mg/dL [facility] Comment: Supplemental ranges: <140 mg/dL before meals <180 mg/dL all other times of the day Blood specimen (specimen) 02/02/2021 4:16 PM EDT 02/02/2021 4:16 PM EDT Travis Callahan MD POINT OF CARE TEST O RDERAMARIE Performing Organization Address City/[facility]/ZIP Co de Phone Number [facility] [place] [address] * POCT Glucose (02/02/2021 12:07 PM EDT) POC Glucose 165 65 - 199 mg/dL [facility] Comment: Supplemental ranges: <140 mg/dL before meals <180 mg/dL all other times of the day Blood specimen (specimen) 02/02/2021 12:07 PM EDT 02/02/2021 12:07 PM EDT Travis Callahan MD POINT OF CARE TEST O RDERABLES [facility] [place] [address] * POCT Glucose (02/02/2021 6:49 AM EDT) [facility] POC Glucose 128 65 - 199 mg/dL [facility] Comment: Supplemental ranges: <140 mg/dL before meals <180 mg/dL all other times of the day Blood specimen (specimen) 02/02/2021 6:49 AM EDT 02/02/2021 6:49 AM EDT Travis Callahan MD POINT OF CARE TEST O MAUREEN Performing Organization Address City/[facility]/ZIP Co de Phone Number [facility] [place] [address] * (ABNORMAL) Differential, Automated (02/02/2021 2:26 AM EDT) [facility] Neutrophils % 81.1 % [facility] Neutr Abs (ANC) 11.70(H) 1.70 - 6.10 x10(3)/ L [facility] Lymphocytes % 10.1 % [facility] Lymphocytes Abs 1.4 0.9 - 3.2 x10(3)/ L [facility] Monocytes % 6.8 % [facility] Monocyte Abs 1.0(H) 0.3 - 0.9 x10(3)/mc L [facility] Eosinophils % 0.4 % [facility] Eosinophils Abs 0.1 0.0 - 0.4 x10(3)/mc L [facility] Basophils % 0.1 % [facility] Basophils Abs 0.0 0.0 - 0.1 x10(3)/mc L [facility] Immature Gran % 1.50 % [facility] Comment: Immature granulocytes(IG's)percentage and absolute count will include metamyelocytes, myelocytes, and promyelocytes. Blood smears from CBCs yielding IG's will be scanned manually for concordance. If this scan disagrees with the automated IG or if promyelocytes are noted, a manual differential will be performed. Anya Gran Abs 0.21(H) 0.00 - 0.04 x10(3)/mc L [facility] Blood specimen (specimen) 02/02/2021 2:26 AM EDT 02/02/2021 2:41 AM EDT Narrative Resulting Agency Comment Spec In Lab Freddie Montes MD HEMATOLOGY ORDERABLE S [facility] [place] [address] * (ABNORMAL) Hemogram (02/02/2021 2:26 AM EDT) WBC 14.4(H) 4.0 - 9.5 x10(3)/[facility] RBC 2.46(L) 4.00 - 5.21 x10(6)/[facility] Hemoglobin 7.6(L) 11.7 - 15.5 gm/dL [facility] Hematocrit 23.5(L) 35.7 - 45.8 % [facility] MCV 95.5(H) 82.6 - 94.4 fL [facility] MCH 30.9 27.1 - 32.0 pg [facility] MCHC 32.3 31.7 - 35.0 gm/dL [facility] Platelets 185 145 - 357 x10(3)/[facility] RDWSD 46.2(H) 37.0 - 46.0 [facility] RDWCV 13.2 11.5 - 14.1 % [facility] MPV 10.5 7.6 - 12.9 fL [facility] nRBC % Auto 0.0 % [facility] nRBC Abs Auto 0.000 0.000 - 0.000 x10(3)/mcL [facility] Blood specimen (specimen) 02/02/2021 2:26 AM EDT 02/02/2021 2:41 AM EDT Narrative Resulting Agency Comment Spec In Lab Freddie Montes MD HEMATOLOGY ORDERABLE S [facility] [place] [address] * (ABNORMAL) CMP w/fasting Glucose (02/02/2021 2:26 AM EDT) Glucose Fasting 123(H) 65 - 99 mg/dL [facility] Comment: ?Fasting* Glucose Interpretive [...] of Diabetes Mellitus, Position Statement from the [employer]. ??Diabetes Care, Volume 33, Supplement 1, Oct 2009 BUN 30(H) 8 - 18 mg/dL [facility] Creatinine 1.18 0.70 - 1.20 mg/dL [facility] Sodium 134(L) 135 - 145 mmol/L [facility] Potassium 4.6 3.5 - 5.0 mmol/L [facility] Comment: Please note: ??Patients with WBC >100,000 may have falsely elevated Potassium levels. ??For accurate Potassium quantification in these patients send serum separator tube (gold top) for subsequent determinations. ??Contact the Clinical Chemistry Laboratory if there are any questions. Chloride 102 98 - 107 mmol/L [facility] CO2 24 22 - 31 mmol/L [facility] Anion Gap 8 5 - 15 mmol/L [facility] Calcium 8.1(L) 8.5 - 10.5 mg/dL [facility] Total Protein 6.2 6.1 - 8.0 gm/dL [facility] Albumin 2.2(L) 3.2 - 5.2 gm/dL [facility] AST 52(H) 0 - 30 unit/L [facility] ALT 33(H) 0 - 30 unit/L [facility] Alk Phos 223(H) 35 - 105 unit/L [facility] Total Bilirubin 0.6 0.2 - 1.3 mg/dL [facility] Estimated GFR 48(L) >=60 mL/min/1. 73 m?? [facility] Comment: This patient? [...] in addition to eGFR. Blood specimen (specimen) 02/02/2021 2:26 AM EDT 02/02/2021 2:41 AM EDT Narrative Resulting Agency Comment Spec In Lab Katy Arce MD CHEMISTRY ORDERABLES [facility] [place] [address] * POCT Glucose (02/01/2021 10:43 PM EDT) POC Glucose 134 65 - 199 mg/dL [facility] Comment: Supplemental ranges: <140 mg/dL before meals <180 mg/dL all other times of the day Blood specimen (specimen) 02/01/2021 10:43 PM EDT 02/01/2021 10:43 PM EDT Travis Callahan MD POINT OF CARE TEST O MAUREEN Performing Organization Address City/[facility]/ZIP Co de Phone Number [facility] [place] [address] * POCT Glucose (02/01/2021 4:01 PM EDT) POC Glucose 157 65 - 199 mg/dL [facility] Comment: Supplemental ranges: <140 mg/dL before meals <180 mg/dL all other times of the day Blood specimen (specimen) 02/01/2021 4:01 PM EDT 02/01/2021 4:01 PM EDT Travis Callahan MD POINT OF CARE TEST O MAUREEN Performing Organization Address [facility]/ZIP Co de Phone Number [facility] [place] [address] * POCT Glucose (02/01/2021 11:09 AM EDT) POC Glucose 179 65 - 199 mg/dL [facility] Comment: Supplemental ranges: <140 mg/dL before meals <180 mg/dL all other times of the day Blood specimen (specimen) 02/01/2021 11:09 AM EDT 02/01/2021 11:09 AM EDT Travis Callahan MD POINT OF CARE TEST O RDERAMARIE Performing Organization Address City/[facility]/ZIP Co de Phone Number [facility] [place] [address] * POCT Glucose (02/01/2021 6:46 AM EDT) POC Glucose 123 65 - 199 mg/dL [facility] Comment: Supplemental ranges: <140 mg/dL before meals <180 mg/dL all other times of the day Blood specimen (specimen) 02/01/2021 6:46 AM EDT 02/01/2021 6:46 AM EDT Maxim Motley MD POINT OF CARE TE ST ORDERABLES [facility] [place] [address] * (ABNORMAL) Differential, Automated (02/01/2021 6:15 AM EDT) Neutrophils % 84.8 % [facility] Neutr Abs (ANC) 15.88(H) 1.70 - 6.10 x10(3)/[facility] Lymphocytes % 7.0 % [facility] Lymphocytes Abs 1.3 0.9 - 3.2 x10(3)/[facility] Monocytes % 6.5 % [facility] Monocyte Abs 1.2(H) 0.3 - 0.9 x10(3)/ L [facility] Eosinophils % 0.3 % [facility] Eosinophils Abs 0.0 0.0 - 0.4 x10(3)/[facility] Basophils % 0.1 % [facility] Basophils Abs 0.0 0.0 - 0.1 x10(3)/[facility] Immature Gran % 1.30 % [facility] Comment: Immature granulocytes(IG's)percentage and absolute count will include metamyelocytes, myelocytes, and promyelocytes. Blood smears from CBCs yielding IG's will be scanned manually for concordance. If this scan disagrees with the automated IG or if promyelocytes are noted, a manual differential will be performed. Anya Gran Abs 0.24(H) 0.00 - 0.04 x10(3)/ L [facility] Blood specimen (specimen) 02/01/2021 6:15 AM EDT 02/01/2021 6:24 AM EDT Narrative Resulting Agency Comment Spec In Lab Freddie Montes MD HEMATOLOGY ORDERABLE S [facility] [place] [address] * (ABNORMAL) Hemogram (02/01/2021 6:15 AM EDT) WBC 18.7(H) 4.0 - 9.5 x10(3)/[facility] LABORATORY RBC 2.53(L) 4.00 - 5.21 x10(6)/[facility] LABORATORY Hemoglobin 7.9(L) 11.7 - 15.5 gm/dL [facility]OR[facility] Hematocrit 23.9(L) 35.7 - 45.8 % [facility] MCV 94.5(H) 82.6 - 94.4 [facility] LABORATORY MCH 31.2 27.1 - 32.0 pg [facility] MCHC 33.1 31.7 - 35.0 gm/dL [facility] LABORAT[facility] Platelets 207 145 - 357 x10(3)/[facility] LABORATORY RDWSD 45.2 37.0 - 46.0 [facility] LABORATORY RDWCV 13.1 11.5 - 14.1 % [facility] MPV 11.0 7.6 - 12.9 [facility] LABORATORY nRBC % Auto 0.0 % [facility] LABORATORY nRBC Abs Auto 0.000 0.000 - 0.000 x10(3)/[facility] LABORATORY Blood specimen (specimen) 02/01/2021 6:15 AM EDT 02/01/2021 6:24 AM EDT Narrative Resulting Agency Comment Spec In Lab Freddie Montes MD HEMATOLOGY ORDERABLE S [facility] [place] [place] [address] * (ABNORMAL) CMP w/fasting Glucose (02/01/2021 6:15 AM EDT) [facility] Signature Glucose Fasting 122(H) 65 - 99 mg/dL [facility] Comment: ?Fasting* Glucose Interpretive [...] of Diabetes Mellitus, Position Statement from the [employer]. ??Diabetes Care, Volume 33, Supplement 1, Oct 2009 BUN 32(H) 8 - 18 mg/dL [facility] Creatinine 1.27(H) 0.70 - 1.20 mg/dL [facility] Sodium 133(L) 135 - 145 mmol/L [facility] Potassium 4.4 3.5 - 5.0 mmol/L [facility] Comment: Please note: ??Patients with WBC >100,000 may have falsely elevated Potassium levels. ??For accurate Potassium quantification in these patients send serum separator tube (gold top) for subsequent determinations. ??Contact the Clinical Chemistry Laboratory if there are any questions. Chloride 101 98 - 107 mmol/L [facility] CO2 23 22 - 31 mmol/L [facility] Anion Gap 9 5 - 15 mmol/L [facility] Calcium 8.3(L) 8.5 - 10.5 mg/dL [facility] Total Protein 6.3 6.1 - 8.0 gm/dL [facility] Albumin 2.2(L) 3.2 - 5.2 gm/dL [facility] AST 58(H) 0 - 30 unit/L [facility] ALT 37(H) 0 - 30 unit/L [facility] Alk Phos 255(H) 35 - 105 unit/L [facility] Total Bilirubin 0.8 0.2 - 1.3 mg/dL [facility] Estimated GFR 44(L) >=60 mL/min/1. 73 m?? [facility] Comment: This patient? [...] in addition to eGFR. Blood specimen (specimen) 02/01/2021 6:15 AM EDT 02/01/2021 6:24 AM EDT Narrative Resulting Agency Comment Spec In Lab Katy Arce MD CHEMISTRY ORDERABLES [facility] [place] [address] * POCT Glucose (01/31/2021 10:04 PM EDT) POC Glucose 164 65 - 199 mg/dL [facility] Comment: Supplemental ranges: <140 mg/dL before meals <180 mg/dL all other times of the day Blood specimen (specimen) 01/31/2021 10:04 PM EDT 01/31/2021 10:04 PM EDT Maxim Motley MD POINT OF CARE TE ST ORDERABLES [facility] [address] * POCT Glucose (01/31/2021 4:11 PM EDT) POC Glucose 134 65 - 199 mg/dL [facility] Comment: Supplemental ranges: <140 mg/dL before meals <180 mg/dL all other times of the day Blood specimen (specimen) 01/31/2021 4:11 PM EDT 01/31/2021 4:11 PM EDT Maxim Motley MD POINT OF CARE TE ST ORDERABLES [facility] [place] [place] [address] * POCT Glucose (01/31/2021 11:22 AM EDT) POC Glucose 118 65 - 199 mg/dL [facility] Comment: Supplemental ranges: <140 mg/dL before meals <180 mg/dL all other times of the day Blood specimen (specimen) 01/31/2021 11:22 AM EDT 01/31/2021 11:22 AM EDT Maxim Motley MD POINT OF CARE TE ST ORDERABLES Performing Organization Address City/[facility]/ZIP Co de Phone Number [facility] [place] [address] * POCT Glucose (01/31/2021 6:32 AM EDT) POC Glucose 103 65 - 199 mg/dL [facility] Comment: Supplemental ranges: <140 mg/dL before meals <180 mg/dL all other times of the day Blood specimen (specimen) 01/31/2021 6:32 AM EDT 01/31/2021 6:32 AM EDT Maxim Motley MD POINT OF CARE TE ST ORDERABLES Performing Organization Address City/[facility]/ZIP Co de Phone Number [facility] [place] [address] * (ABNORMAL) Differential, Automated (01/31/2021 6:20 AM EDT) Neutrophils % 84.6 % [facility] LABORATORY Neutr Abs (ANC) 15.36(H) 1.70 - 6.10 x10(3)/[facility] LABORATORY Lymphocytes % 6.7 % [facility] Lymphocytes Abs 1.2 0.9 - 3.2 x10(3)/[facility] LABORATORY Monocytes % 6.7 % [facility]OR[facility] Monocyte Abs 1.2(H) 0.3 - 0.9 x10(3)/[facility] LABORATORY Eosinophils % 0.2 % [facility] Eosinophils Abs 0.0 0.0 - 0.4 x10(3)/[facility] LABORATORY Basophils % 0.2 % [facility] Basophils Abs 0.0 0.0 - 0.1 x10(3)/[facility] LABORATORY Immature Gran % 1.60 % [facility] Comment: Immature granulocytes(IG's)percentage and absolute count will include metamyelocytes, myelocytes, and promyelocytes. Blood smears from CBCs yielding IG's will be scanned manually for concordance. If this scan disagrees with the automated IG or if promyelocytes are noted, a manual differential will be performed. Anya Gran Abs 0.29(H) 0.00 - 0.04 x10(3)/[facility] LABORATORY Blood specimen (specimen) 01/31/2021 6:20 AM EDT 01/31/2021 6:31 AM EDT Narrative Resulting Agency Comment Spec In Lab Freddie Montes MD HEMATOLOGY ORDERABLE S [facility] [place] [address] * (ABNORMAL) Hemogram (01/31/2021 6:20 AM EDT) WBC 18.1(H) 4.0 - 9.5 x10(3)/[facility] LABORATORY RBC 2.67(L) 4.00 - 5.21 x10(6)/[facility] LABORATORY Hemoglobin 8.3(L) 11.7 - 15.5 gm/dL [facility] Hematocrit 24.9(L) 35.7 - 45.8 % [facility] MCV 93.3 82.6 - 94.4 [facility] LABORATORY MCH 31.1 27.1 - 32.0 pg [facility] MCHC 33.3 31.7 - 35.0 gm/dL [facility] Platelets 165 145 - 357 x10(3)/[facility] RDWSD 44.9 37.0 - 46.0 [facility] RDWCV 13.1 11.5 - 14.1 % [facility] LABORATORY MPV 11.4 7.6 - 12.9 [facility] LABORATORY nRBC % Auto 0.0 % [facility] LABORATORY nRBC Abs Auto 0.000 0.000 - 0.000 x10(3)/[facility] LABORATORY Blood specimen (specimen) 01/31/2021 6:20 AM EDT 01/31/2021 6:31 AM EDT Narrative Resulting Agency Comment Spec In Lab Freddie Montes MD HEMATOLOGY ORDERABLE S Performing Organization Address City/State/[facility] Co de Phone Number [facility] [place] [address] * (ABNORMAL) CMP w/fasting Glucose (01/31/2021 6:20 AM EDT) Glucose Fasting 108(H) 65 - 99 mg/dL [facility] Comment: ?Fasting* Glucose Interpretive [...] of Diabetes Mellitus, Position Statement from the [employer]. ??Diabetes Care, Volume 33, Supplement 1, Oct 2009 BUN 41(H) 8 - 18 mg/dL [facility] Creatinine 1.46(H) 0.70 - 1.20 mg/dL [facility] Sodium 132(L) 135 - 145 mmol/L [facility] Potassium 4.7 3.5 - 5.0 mmol/L [facility] Comment: Please note: ??Patients with WBC >100,000 may have falsely elevated Potassium levels. ??For accurate Potassium quantification in these patients send serum separator tube (gold top) for subsequent determinations. ??Contact the Clinical Chemistry Laboratory if there are any questions. Chloride 101 98 - 107 mmol/L [facility] CO2 20(L) 22 - 31 mmol/L [facility] Anion Gap 11 5 - 15 mmol/L [facility] Calcium 8.1(L) 8.5 - 10.5 mg/dL [facility] Total Protein 6.1 6.1 - 8.0 gm/dL [facility] Albumin 2.1(L) 3.2 - 5.2 gm/dL [facility] AST 63(H) 0 - 30 unit/L [facility] ALT 42(H) 0 - 30 unit/L [facility] Alk Phos 250(H) 35 - 105 unit/L [facility] Total Bilirubin 0.8 0.2 - 1.3 mg/dL [facility] Estimated GFR 37(L) >=60 mL/min/1. 73 m?? [facility] Comment: This patient? [...] in addition to eGFR. Blood specimen (specimen) 01/31/2021 6:20 AM EDT 01/31/2021 6:31 AM EDT Narrative Resulting Agency Comment Spec In Lab Katy Arce MD CHEMISTRY ORDERABLES Performing Organization Address [facility] Co de Phone Number [facility] [place] [address] * POCT Glucose (01/30/2021 9:21 PM EDT) POC Glucose 111 65 - 199 mg/dL [facility] Comment: Supplemental ranges: <140 mg/dL before meals <180 mg/dL all other times of the day Blood specimen (specimen) 01/30/2021 9:21 PM EDT 01/30/2021 9:21 PM EDT Maxim Motley MD POINT OF CARE TE ST ORDERABLES Performing Organization Address City/[facility]/ZIP Co de Phone Number [facility] [place] [address] * POCT Glucose (01/30/2021 4:29 PM EDT) POC Glucose 108 65 - 199 mg/dL [facility] Comment: Supplemental ranges: <140 mg/dL before meals <180 mg/dL all other times of the day Blood specimen (specimen) 01/30/2021 4:29 PM EDT 01/30/2021 4:29 PM EDT Maxim Motley MD POINT OF CARE TE ST ORDERABLES Performing Organization Address [facility]/ZIP Co de Phone Number [facility] [place] [address] * POCT Glucose (01/30/2021 11:12 AM EDT) [facility] POC Glucose 105 65 - 199 mg/dL [facility] Comment: Supplemental ranges: <140 mg/dL before meals <180 mg/dL all other times of the day Blood specimen (specimen) 01/30/2021 11:12 AM EDT 01/30/2021 11:12 AM EDT Maxim Motley MD POINT OF CARE TE ST ORDERABLES Performing Organization Address [facility] Co de Phone Number [facility] [place] [address] * Scan, Peripheral Blood (01/30/2021 8:22 AM EDT) [facility] Plat Estimate Normal [facility] RBC Morphology Abnormal [facility] Hypochromia Slight [facility] Blood specimen (specimen) 01/30/2021 8:22 AM EDT 01/30/2021 8:51 AM EDT Narrative Resulting Agency Comment Spec In Lab Freddie Montes MD HEMATOLOGY ORDERABLE S Performing Organization Address City/[facility]/ZIP Co de Phone Number [facility] [place] [address] * (ABNORMAL) Differential, Automated (01/30/2021 8:22 AM EDT) [facility] Neutrophils % 83.3 % [facility] Neutr Abs (ANC) 17.02(H) 1.70 - 6.10 x10(3)/mc L [facility] Lymphocytes % 6.3 % [facility] Lymphocytes Abs 1.3 0.9 - 3.2 x10(3)/mc L [facility] Monocytes % 8.0 % [facility] Monocyte Abs 1.6(H) 0.3 - 0.9 x10(3)/[facility] LABORATORY Eosinophils % 0.2 % [facility] Eosinophils Abs 0.0 0.0 - 0.4 x10(3)/[facility] LABORATORY Basophils % 0.1 % [facility] Basophils Abs 0.0 0.0 - 0.1 x10(3)/[facility] LABORATORY Immature Gran % 2.10 % [facility] Comment: Immature granulocytes(IG's)percentage and absolute count will include metamyelocytes, myelocytes, and promyelocytes. Blood smears from CBCs yielding IG's will be scanned manually for concordance. If this scan disagrees with the automated IG or if promyelocytes are noted, a manual differential will be performed. Anya Gran Abs 0.42(H) 0.00 - 0.04 x10(3)/[facility] LABORATORY Blood specimen (specimen) 01/30/2021 8:22 AM EDT 01/30/2021 8:51 AM EDT Narrative Resulting Agency Comment Spec In Lab Freddie Montes MD HEMATOLOGY ORDERABLE S [facility] [place] [address] * (ABNORMAL) Hemogram (01/30/2021 8:22 AM EDT) WBC 20.4(H) 4.0 - 9.5 x10(3)/[facility] LABORATORY RBC 2.92(L) 4.00 - 5.21 x10(6)/[facility] LABORATORY Hemoglobin 9.0(L) 11.7 - 15.5 gm/dL [facility] Hematocrit 26.8(L) 35.7 - 45.8 % [facility] MCV 91.8 82.6 - 94.4 fL [facility] MCH 30.8 27.1 - 32.0 pg [facility] MCHC 33.6 31.7 - 35.0 gm/dL [facility] Platelets 173 145 - 357 x10(3)/[facility] LABORATORY RDWSD 43.5 37.0 - 46.0 fL [facility] RDWCV 13.0 11.5 - 14.1 % [facility] MPV 11.4 7.6 - 12.9 fL [facility] nRBC % Auto 0.0 % [facility] nRBC Abs Auto 0.000 0.000 - 0.000 x10(3)/[facility] LABORATORY Blood specimen (specimen) 01/30/2021 8:22 AM EDT 01/30/2021 8:51 AM EDT Narrative Resulting Agency Comment Spec In Lab Freddie Montes MD HEMATOLOGY ORDERABLE S Performing Organization Address City/State/[facility] Co de Phone Number [facility] [place] [address] * (ABNORMAL) CMP w/fasting Glucose (01/30/2021 8:22 AM EDT) Glucose Fasting 94 65 - 99 mg/dL [facility] Comment: ?Fasting* Glucose Interpretive [...] of Diabetes Mellitus, Position Statement from the [employer]. ??Diabetes Care, Volume 33, Supplement 1, Oct 2009 BUN 40(H) 8 - 18 mg/dL [facility] Creatinine 1.82(H) 0.70 - 1.20 mg/dL [facility] Sodium 132(L) 135 - 145 mmol/L [facility] Potassium 4.6 3.5 - 5.0 mmol/L [facility] Comment: Please note: ??Patients with WBC >100,000 may have falsely elevated Potassium levels. ??For accurate Potassium quantification in these patients send serum separator tube (gold top) for subsequent determinations. ??Contact the Clinical Chemistry Laboratory if there are any questions. Chloride 101 98 - 107 mmol/L [facility] CO2 23 22 - 31 mmol/L [facility] Anion Gap 8 5 - 15 mmol/L [facility] Calcium 8.3(L) 8.5 - 10.5 mg/dL [facility] Total Protein 6.4 6.1 - 8.0 gm/dL [facility] Albumin 2.1(L) 3.2 - 5.2 gm/dL [facility] AST 87(H) 0 - 30 unit/L [facility] ALT 49(H) 0 - 30 unit/L [facility] Alk Phos 273(H) 35 - 105 unit/L [facility] Total Bilirubin 1.0 0.2 - 1.3 mg/dL [facility] Estimated GFR 28(L) >=60 mL/min/1. 73 m?? [facility] Comment: This patient? s estimated glomerular filtration rate (eGFR) is between 28 mL/min/1.73 m2 (patients with less muscle mass) and 33 mL/min/1.73 m2 (patients with more muscle mass) [...] in addition to eGFR. Blood specimen (specimen) 01/30/2021 8:22 AM EDT 01/30/2021 8:51 AM EDT Narrative Resulting Agency Comment Spec In Lab Katy Arce MD CHEMISTRY ORDERABLES Performing Organization Address [facility] Co de Phone Number [facility] [place] [address] * (ABNORMAL) Lipase (01/30/2021 8:22 AM EDT) Lipase 524(H) 0 - 60 unit/L [facility] Blood specimen (specimen) 01/30/2021 8:22 AM EDT 01/30/2021 8:51 AM EDT Narrative Resulting Agency Comment Spec In Lab Maxim Motley MD CHEMISTRY ORDERA BLES Performing Organization Address [facility] Co de Phone Number [facility] [place] [address] * POCT Glucose (01/30/2021 6:46 AM EDT) POC Glucose 94 65 - 199 mg/dL [facility] Comment: Supplemental ranges: <140 mg/dL before meals <180 mg/dL all other times of the day Blood specimen (specimen) 01/30/2021 6:46 AM EDT 01/30/2021 6:46 AM EDT Maxim Motley MD POINT OF CARE TE ST ORDERABLES Performing Organization Address [facility] Co de Phone Number [facility] [place] [address] * POCT Glucose (01/29/2021 9:04 PM EDT) POC Glucose 133 65 - 199 mg/dL [facility] Comment: Supplemental ranges: <140 mg/dL before meals <180 mg/dL all other times of the day Blood specimen (specimen) 01/29/2021 9:04 PM EDT 01/29/2021 9:04 PM EDT Maxim Motley MD POINT OF CARE TE ST ORDERABLES [facility] [place] [address] * MRI Cholangiopancreatography wwo Contrast (01/29/2021 7:52 PM EDT) Anatomical Region Laterality Modality Magnetic Resonan ce Impressions 01/30/2021 8:05 AM EDT 1. ??2 small intraluminal signal voids seen in the common bile duct without biliary ductal dilatation. Possible retained calculi. 2. ??Pancreas: Mild diffuse edema. No pancreatic ductal dilatation. 3. ??Large peripherally enhancing partially loculated fluid collection surrounding the pancreatic head and uncinate process, as described above; possible pseudocyst, however, cannot exclude an abscess. Thank you for letting us participate in the care of this patient. ??If you are a health care provider and have any questions regarding this report, please contact the number below. ??For patients who have questions please contact the health gericare aide that requested your imaging first. ? Narrative 01/30/2021 8:05 AM EDT EXAMINATION: MRI CHOLANGIOPANCREATOGRAPHY WWO CONTRAST ? CLINICAL HISTORY: Re-admission with pancreatitis 2/[address] shows enlarging mass likely pseudocyst vs abscess. Gen Surg requests MRCP to better characterize TECHNIQUE: MRI of the abdomen was performed with images obtained prior to and following the intravenous administration of 19ml Dotarem. 3D-MRCP, axial and coronal 2D MRCP, axial T2 fast (turbo) spin-echo with fat saturation, axial 2D T1 weighted in/out phase was also performed. 3D MIPS were created. COMPARISON: Nuclear medicine study from 01/29/[address] of the abdomen and pelvis from 01/29/2021 FINDINGS: MRCP Bile ducts: Intrahepatic bile ducts are well visualized and normal in caliber. The common bile duct is normal caliber. On the axial T2-weighted images with fat sat (series 6, image 25, 28) there are 2 small, 2 to 3 mm, intraluminal signal voids within the common bile duct. Gallbladder: Surgically absent Pancreatic duct: Normal caliber and configuration. MRI Lower chest: Trace bilateral pleural effusions. Liver: Normal size and signal intensity. No lesions. Pancreas: Mildly edematous, however, normal parenchymal enhancement, without evidence of pancreatic necrosis. Extensive peripherally enhancing loculated fluid collection extending anteriorly in the RIGHT hemiabdomen, posteriorly to surround the head of the pancreas and extending to the region of the uncinate process. The collection measures approximately 15.6 x 6.6 cm in the axial plane. It extends inferiorly into the RIGHT retroperitoneum to abut the hepatic flexure. Pancreatic duct: Normal caliber and configuration. Spleen: Normal. Adrenals: Normal. Kidneys: Symmetric enhancement. No collecting system obstruction bilaterally. An indeterminate, 8mm T1 hyperintense, nonenhancing lesion is seen in the interpole region of the RIGHT cortex. This lesion cannot be seen on the T2-weighted images. It is likely a hyper proteinaceous cyst. No renal collecting system obstruction bilaterally Vasculature: No aneurysm. Lymph nodes: No enlarged lymph nodes. Bowel: No small bowel obstruction. Peritoneum and mesentery: No ascites or loculated fluid collection. Marrow Signal: Normal. Procedure Note Beau Montemayor MD - 01/30/2021 EXAMINATION: MRI CHOLANGIOPANCREATOGRAPHY WWO CONTRAST CLINICAL HISTORY: Re-admission with pancreatitis 2/[address] showsenlarging mass likely pseudocyst vs abscess. Gen Surg requests MRCP to bettercharacterize TECHNIQUE: MRI of the abdomen was performed with images obtained prior toand following the intravenous administration of 19ml Dotarem. 3D-MRCP, axialand coronal 2D MRCP, axial T2 fast (turbo) spin-echo with fat saturation,axial 2D T1 weighted in/out phase was also performed. 3D MIPS were created. COMPARISON: Nuclear medicine study from 01/29/[address] of the abdomenand pelvis from 01/29/2021 FINDINGS: MRCP Bile ducts: Intrahepatic bile ducts are well visualized and normal incaliber. The common bile duct is normal caliber. On the axial T2-weighted imageswith fat sat (series 6, image 25, 28) there are 2 small, 2 to 3 mm, intraluminalsignal voids within the common bile duct. Gallbladder: Surgically absent Pancreatic duct: Normal caliber and configuration. MRI Lower chest: Trace bilateral pleural effusions. Liver: Normal size and signal intensity. No lesions. Pancreas: Mildly edematous, however, normal parenchymal enhancement,without evidence of pancreatic necrosis. Extensive peripherally enhancingloculated fluid collection extending anteriorly in the RIGHT hemiabdomen,posteriorly to surround the head of the pancreas and extending to the region of theuncinate process. The collection measures approximately 15.6 x 6.6 cm in the axialplane. It extends inferiorly into the RIGHT retroperitoneum to abut the hepatic flexure. Pancreatic duct: Normal caliber and configuration. Spleen: Normal. Adrenals: Normal. Kidneys: Symmetric enhancement. No collecting system obstructionbilaterally. An indeterminate, 8mm T1 hyperintense, nonenhancing lesion is seen in theinterpole region of the RIGHT cortex. This lesion cannot be seen on theT2-weighted images. It is likely a hyper proteinaceous cyst. No renal collectingsystem obstruction bilaterally Vasculature: No aneurysm. Lymph nodes: No enlarged lymph nodes. Bowel: No small bowel obstruction. Peritoneum and mesentery: No ascites or loculated fluid collection. Marrow Signal: Normal. IMPRESSION 1. 2 small intraluminal signal voids seen in the common bile ductwithout biliary ductal dilatation. Possible retained calculi. 2. Pancreas: Mild diffuse edema. No pancreatic ductal dilatation. 3. Large peripherally enhancing partially loculated fluid collection surrounding the pancreatic head and uncinate process, as describedabove; possible pseudocyst, however, cannot exclude an abscess. Thank you for letting us participate in the care of this patient. If youare a health care provider and have any questions regarding this report,please contact the number below. For patients who have questions please contactthe health gericare aide that requested your imaging first. Electronically signed by: Beau Montemayor MD, [facility]([phone]), at 01/30/2021 8:05 AM Maxim Motley MD IMG MRI ORDERABL ES * POCT Glucose (01/29/2021 4:43 PM EDT) POC Glucose 76 65 - 199 mg/dL [facility] Comment: Supplemental ranges: <140 mg/dL before meals <180 mg/dL all other times of the day Blood specimen (specimen) 01/29/2021 4:43 PM EDT 01/29/2021 4:43 PM EDT Maxim Motley MD POINT OF CARE TE ST ORDERABLES [facility] [place] [address] * NM Biliary tract Imaging (01/29/2021 1:08 PM EDT) Anatomical Region Laterality Modality Nuclear Medicine Impressions 01/29/2021 3:44 PM EDT Normal hepatic function with no evidence of biliary leak. Thank you for letting us participate in the care of this patient. ??If you are a health care provider and have any questions regarding this report, please contact the number below. ??For patients who have questions please contact the health gericare aide that requested your imaging first. ? Electronically signed by: Chan Fernández MD, [facility] ([phone]), at 01/29/2021 3:44 PM Narrative 01/29/2021 3:44 PM EDT EXAMINATION: NM BILIARY TRACT IMAGING CLINICAL HISTORY: Pt here with re-admission for ERCP-pancreatitis 2/2 retained stone. Gen Surg requesting HIDA and MRCP for ongoing managment TECHNIQUE: Technetium-99m mebrofenin was administered intravenously in a dose of 5.2 mCi. Images of the abdomen were obtained immediately thereafter at one minute intervals for 60 minutes in the anterior projection. COMPARISON: None FINDINGS: Normal prompt hepatic tracer extraction and excretion into the proximal small bowel. No evidence of biliary leak. Procedure Note Chan Fernández MD - 01/29/2021 EXAMINATION: NM BILIARY TRACT IMAGING CLINICAL HISTORY: Pt here with re-admission for ERCP-pancreatitis 2/2retained stone. Gen Surg requesting HIDA and MRCP for ongoing managment TECHNIQUE: Technetium-99m mebrofenin was administered intravenously in adose of 5.2 mCi. Images of the abdomen were obtained immediately thereafter atone minute intervals for 60 minutes in the anterior projection. COMPARISON: None FINDINGS: Normal prompt hepatic tracer extraction and excretion into the proximalsmall bowel. No evidence of biliary leak. IMPRESSION Normal hepatic function with no evidence of biliary leak. Thank you for letting us participate in the care of this patient. If youare a health care provider and have any questions regarding this report,please contact the number below. For patients who have questions please contactthe health gericare aide that requested your imaging first. Electronically signed by: Chan Fernández MD, [facility]([phone]), at 01/29/2021 3:44 PM Maxim Motley [place] [facility] S * Gold Tube HOLD (01/29/2021 12:45 PM EDT) Gold Hold Sample in lab. [facility] Blood specimen (specimen) Venous Draw / Unknown 01/29/2021 12:45 PM EDT 01/29/2021 12:59 PM EDT Freddie Montes MD CHEMISTRY ORDERABLES [facility] [place] [address] * (ABNORMAL) Differential, Automated (01/29/2021 12:45 PM EDT) Neutrophils % 87.3 % [facility] Neutr Abs (ANC) 15.99(H) 1.70 - 6.10 x10(3)/[facility] Lymphocytes % 5.1 % [facility] Lymphocytes Abs 0.9 0.9 - 3.2 x10(3)/[facility] Monocytes % 5.5 % [facility] Monocyte Abs 1.0(H) 0.3 - 0.9 x10(3)/[facility] Eosinophils % 0.2 % [facility] Eosinophils Abs 0.0 0.0 - 0.4 x10(3)/[facility] Basophils % 0.2 % [facility] Basophils Abs 0.0 0.0 - 0.1 x10(3)/[facility] Immature Gran % 1.70 % [facility] Comment: Immature granulocytes(IG's)percentage and absolute count will include metamyelocytes, myelocytes, and promyelocytes. Blood smears from CBCs yielding IG's will be scanned manually for concordance. If this scan disagrees with the automated IG or if promyelocytes are noted, a manual differential will be performed. Anya Gran Abs 0.31(H) 0.00 - 0.04 x10(3)/[facility] Blood specimen (specimen) 01/29/2021 12:45 PM EDT 01/29/2021 12:57 PM EDT Narrative Resulting Agency Comment Spec In Lab Freddie Montes MD HEMATOLOGY ORDERABLE S [facility] [place] [address] * (ABNORMAL) Hemogram (01/29/2021 12:45 PM EDT) Pathologist [facility] [place] WBC 18.3(H) 4.0 - 9.5 x10(3)/[facility] RBC 2.89(L) 4.00 - 5.21 x10(6)/[facility] Hemoglobin 9.1(L) 11.7 - 15.5 gm/dL [facility] Hematocrit 26.7(L) 35.7 - 45.8 % [facility] MCV 92.4 82.6 - 94.4 [facility] MCH 31.5 27.1 - 32.0 pg [facility] MCHC 34.1 31.7 - 35.0 gm/dL [facility] Platelets 152 145 - 357 x10(3)/[facility] RDWSD 44.1 37.0 - 46.0 [facility] RDWCV 12.9 11.5 - 14.1 % [facility] MPV 11.8 7.6 - 12.9 [facility] nRBC % Auto 0.0 % [facility] nRBC Abs Auto 0.000 0.000 - 0.000 x10(3)/[facility] Blood specimen (specimen) 01/29/2021 12:45 PM EDT 01/29/2021 12:57 PM EDT Narrative Resulting Agency Comment Spec In Lab Freddie Montes MD HEMATOLOGY ORDERABLE S [facility] [place] [place] [address] * (ABNORMAL) CMP w/fasting Glucose (01/29/2021 12:45 PM EDT) [facility] Glucose Fasting 89 65 - 99 mg/dL [facility] Comment: ?Fasting* Glucose Interpretive [...] of Diabetes Mellitus, Position Statement from the [employer]. ??Diabetes Care, Volume 33, Supplement 1, Oct 2009 BUN 39(H) 8 - 18 mg/dL [facility] Creatinine 1.84(H) 0.70 - 1.20 mg/dL [facility] Sodium 132(L) 135 - 145 mmol/L [facility] Potassium 4.8 3.5 - 5.0 mmol/L [facility] Comment: Please note: ??Patients with WBC >100,000 may have falsely elevated Potassium levels. ??For accurate Potassium quantification in these patients send serum separator tube (gold top) for subsequent determinations. ??Contact the Clinical Chemistry Laboratory if there are any questions. Chloride 100 98 - 107 mmol/L [facility] CO2 23 22 - 31 mmol/L [facility] Anion Gap 9 5 - 15 mmol/L [facility] Calcium 8.5 8.5 - 10.5 mg/dL [facility] Total Protein 6.3 6.1 - 8.0 gm/dL [facility] Albumin 2.1(L) 3.2 - 5.2 gm/dL [facility] AST 80(H) 0 - 30 unit/L [facility] ALT 47(H) 0 - 30 unit/L [facility] Alk Phos 263(H) 35 - 105 unit/L [facility] Total Bilirubin 1.2 0.2 - 1.3 mg/dL [facility] Estimated GFR 28(L) >=60 mL/min/1. 73 m?? [facility] Comment: This patient? s estimated glomerular filtration rate (eGFR) is between 28 mL/min/1.73 m2 (patients with less muscle mass) and 32 mL/min/1.73 m2 (patients with more muscle mass) [...] in addition to eGFR. Blood specimen (specimen) 01/29/2021 12:45 PM EDT 01/29/2021 12:57 PM EDT Narrative Resulting Agency Comment Spec In Lab Maxim Motley MD CHEMISTRY ORDERA BLES Performing Organization Address City/[facility]/ZIP Co de Phone Number [facility] [place] [address] * POCT Glucose (01/29/2021 12:43 PM EDT) POC Glucose 83 65 - 199 mg/dL [facility] Comment: Supplemental ranges: <140 mg/dL before meals <180 mg/dL all other times of the day Blood specimen (specimen) 01/29/2021 12:43 PM EDT 01/29/2021 12:43 PM EDT Maxim Motley MD POINT OF CARE TE ST ORDERABLES Performing Organization Address [facility]/ZIP Co de Phone Number [facility] [place] [address] * CT Abdomen & Pelvis wo Contrast (01/29/2021 3:56 AM EDT) Anatomical Region Laterality Modality Abdomen, Pelvis Computed Tomogra phy Impressions 01/29/2021 5:21 AM EDT * ??Increased peripancreatic and periduodenal tracking into the Fallon's pouch and the pelvis in the setting of known pancreatitis. Evaluation of the pancreatic parenchyma is limited due to lack of IV contrast. * ??Interval loculation of an enlarged 5.5 x 5.5 x 4.1 cm thick-walled collection anterior to the hepatic flexure (series 3 image 70). Differential considerations include pseudocyst (more likely), walled off necrosis, and abscess. * ??Unchanged gallstone in the gallbladder/cystic duct remnant. * ??Thickening of the duodenum, likely reactive. Preliminary report signed by: Nik Dodge at 01/29/2021 4:34 AM I have personally reviewed the image(s) and the resident's interpretation and agree with the findings, Van Moy MD at 01/29/2021 5:21 AM Thank you for letting us participate in the care of this patient. ??If you are a health care provider and have any questions regarding this report, please contact the number below. ??For patients who have questions please contact the health gericare aide that requested your imaging first. ? Narrative 01/29/2021 5:21 AM EDT EXAMINATION: CT ABDOMEN AND PELVIS WO CONTRAST CLINICAL HISTORY: Abdominal distension Long PO prep, no IV. Assess for bowel obstruction, worsening pancreatitis, peripancreatitis fluid collection, other source of leukocytosis TECHNIQUE: Helical CT of the abdomen and pelvis was performed without the use of intravenous contrast. Enteric Omnipaque 350 was given. Multiplanar reformatted images were generated. COMPARISON: CT of the abdomen pelvis with contrast dated 01/19/2021 FINDINGS: The absence of intravenous contrast limits the evaluation of solid viscera and vasculature. Lower chest: Mitral annular calcifications. Coronary artery calcifications. Normal cardiac size. No pericardial effusion. Unchanged peribronchial thickening in bilateral lower lobes. Bilateral subsegmental atelectasis. Liver: Normal size and attenuation without lesions. Bile ducts: Within normal limits. Gallbladder: Surgically absent. Persistent 7 mm gallstone in the ??cystic duct/gallbladder remnant. Pancreas, peritoneum, mesentery: Diffusely edematous pancreas. Limited evaluation of the parenchyma due to lack of IV contrast. Increased large amount of peripancreatic/periduodenal fluid tracking into the Fallon's pouch and inferiorly along the anterior pararenal fascia into the pelvis. Interval loculation of an enlarged 5.5 x 5.5 x 4.1 cm thick-walled collection anterior to the hepatic flexure causing minimal mass effect on the colon (series 3 image 70). Spleen: Normal. Splenule noted anteriorly. Kidneys: No hydronephrosis. Punctate right upper pole renal cortical hypodensity (series 3 image 62) is too small to further characterize. An 11 mm right lower pole renal cortical hyperdensity did not demonstrate enhancing septations or nodularity on CT dated 01/19/2021, likely a hemorrhagic/proteinaceous cyst. Punctate nonobstructive right interpolar renal stone (series 3 image 68). Urinary bladder: Partially distended. Limited evaluation. Adrenals: Normal. Vasculature: No aneurysm. Atherosclerotic calcifications. Lymph Nodes: No enlarged lymph nodes. Bowel: Thickening of the duodenum, likely reactive. Normal appendix. Scattered colonic diverticula. Abdominal wall: Anasarca. Pelvic floor laxity. Reproductive organs: Normal. Osseous structures: No suspicious lesions. Multilevel degenerative changes of the spine. Procedure Note Javier Moy MD - 01/29/2021 EXAMINATION: CT ABDOMEN AND PELVIS WO CONTRAST CLINICAL HISTORY: Abdominal distension Long PO prep, no IV. Assess for bowel obstruction, worseningpancreatitis, peripancreatitis fluid collection, other source of leukocytosis TECHNIQUE: Helical CT of the abdomen and pelvis was performed without theuse of intravenous contrast. Enteric Omnipaque 350 was given. Multiplanarreformatted images were generated. COMPARISON: CT of the abdomen pelvis with contrast dated 01/19/2021 FINDINGS: The absence of intravenous contrast limits the evaluation of solid visceraand vasculature. Lower chest: Mitral annular calcifications. Coronary arterycalcifications. Normal cardiac size. No pericardial effusion. Unchanged peribronchialthickening in bilateral lower lobes. Bilateral subsegmental atelectasis. Liver: Normal size and attenuation without lesions. Bile ducts: Within normal limits. Gallbladder: Surgically absent. Persistent 7 mm gallstone in the cystic duct/gallbladder remnant. Pancreas, peritoneum, mesentery: Diffusely edematous pancreas. Limited evaluation of the parenchyma due to lack of IV contrast. Increased large amount of peripancreatic/periduodenal fluid tracking intothe Fallon's pouch and inferiorly along the anterior pararenal fascia intothe pelvis. Interval loculation of an enlarged 5.5 x 5.5 x 4.1 cm thick-walledcollection anterior to the hepatic flexure causing minimal mass effect on the colon(series 3 image 70). Spleen: Normal. Splenule noted anteriorly. Kidneys: No hydronephrosis. Punctate right upper pole renal corticalhypodensity (series 3 image 62) is too small to further characterize. An 11 mm rightlower pole renal cortical hyperdensity did not demonstrate enhancing septationsor nodularity on CT dated 01/19/2021, likely a hemorrhagic/proteinaceouscyst. Punctate nonobstructive right interpolar renal stone (series 3 image68). Urinary bladder: Partially distended. Limited evaluation. Adrenals: Normal. Vasculature: No aneurysm. Atherosclerotic calcifications. Lymph Nodes: No enlarged lymph nodes. Bowel: Thickening of the duodenum, likely reactive. Normal appendix.Scattered colonic diverticula. Abdominal wall: Anasarca. Pelvic floor laxity. Reproductive organs: Normal. Osseous structures: No suspicious lesions. Multilevel degenerative changesof the spine. IMPRESSION * Increased peripancreatic and periduodenal tracking into the Fallon'spouch and the pelvis in the setting of known pancreatitis. Evaluation of the pancreatic parenchyma is limited due to lack of IV contrast. * Interval loculation of an enlarged 5.5 x 5.5 x 4.1 cm thick-walledcollection anterior to the hepatic flexure (series 3 image 70). Differentialconsiderations include pseudocyst (more likely), walled off necrosis, and abscess. * Unchanged gallstone in the gallbladder/cystic duct remnant. * Thickening of the duodenum, likely reactive. Preliminary report signed by: Nik Dodge at 01/29/2021 4:34 AM I have personally reviewed the image(s) and the resident's interpretationand agree with the findings, Van Moy MD at 01/29/2021 5:21 AM Thank you for letting us participate in the care of this patient. If youare a health care provider and have any questions regarding this report,please contact the number below. For patients who have questions please contactthe health gericare aide that requested your imaging first. Katy Arce MD IMG CT ORDERABLES * Blood culture (01/29/2021 1:33 AM EDT) Pathologist [facility] [place] Blood Culture No growth at 5 days. [facility] Blood specimen (specimen) 01/29/2021 1:33 AM EDT 01/29/2021 2:13 AM EDT Narrative Resulting Agency Comment Spec In Lab Blanca Mitchell MD MICROBIOLOGY - BLOOD ORDERABLES Performing Organization Address City/[facility]/ZIP Co de Phone Number [facility] [place] [address] * Lactate, whole blood, send to lab ([facility] [place] [facility] [place] [place]) (01/29/2021 12:23 AM EDT) Pathologist [facility] [place] Lactate WB 1.4 0.5 - 2.2 mmol/L [facility] Blood specimen (specimen) 01/29/2021 12:23 AM EDT 01/29/2021 12:27 AM EDT Narrative Resulting Agency Comment Spec In Lab Katy Arce MD CHEMISTRY ORDERABLES [facility] [place] [address] * Urine culture (01/28/2021 9:26 PM EDT) [facility] Urine Culture No growth (Less than 1,000 cfu/ml). [facility] Urine specimen obtained by clean catch procedure (specimen) 01/28/2021 9:26 PM EDT 01/28/2021 10:54 PM EDT Narrative Resulting Agency Comment Spec In Lab Cristian Miller MD MICROBIOLOGY - GENE RAL ORDERABLES Performing Organization Address City/[facility]/ZIP Co de Phone Number [facility] [place] [address] * (ABNORMAL) Urinalysis Microscopic Exam (01/28/2021 9:26 PM EDT) RBC UA 6(H) 0 - 4 /HPF [facility] WBC UA 19(H) 0 - 5 /HPF [facility] Bacteria UA Occasiona l(A) None /HPF [facility] Squam Epith UA 7(H) <=4 /HPF [facility] Hyaline Cast UA <1 0 - 2 /LPF [facility] Gran Cast UA 1(H) <=0 /LPF [facility] Comment: Interpret results with caution, microscopic results are from suboptimal specimen volume Amorph Marly UA Few(A) None /HPF [facility] Urine specimen obtained by clean catch procedure (specimen) 01/28/2021 9:26 PM EDT 01/28/2021 9:34 PM EDT Narrative Resulting Agency Comment Spec In Lab Cristian Miller MD URINE ORDERABLES Performing Organization Address [facility]/ZIP Co de Phone Number [facility] [place] [address] * (ABNORMAL) Urinalysis with reflex Culture (01/28/2021 9:26 PM EDT) Glucose UA Negative Negative mg/dL [facility] Protein UA 100(A) Negative mg/dL [facility] Bilirubin UA Negative Negative mg/dL [facility] Comment: Clinical correlation required for positive Urine Bilirubin results as false positive may occur with some drugs and drug related products. If a false positive is suspected a serum total bilirubin should be considered if clinically indicated. Urobilinogen UA Normal Normal mg/dL [facility] pH UA 5.0 5.0 - 8.0 [facility] Blood UA Small(A) Negative mg/dL [facility] Ketones UA Trace(A) Negative mg/dL [facility] Nitrite UA Negative Negative [facility] Leukocytes UA Negative Negative [facility] Appearance UA Turbid(A) Clear [facility] Spec [place] UA 1.027 1.006 - 1.030 [facility] Color UA Dark Yellow Yellow [facility] Culture Reflexed Yes [facility] Urine specimen obtained by clean catch procedure (specimen) 01/28/2021 9:26 PM EDT 01/28/2021 9:34 PM EDT Narrative Resulting Agency Comment Spec In Lab Shayy Bowie DO URINE ORDER MÓNICA Performing Organization Address City/[facility]/ZIP Co de Phone Number [facility] [place] [address] * Lawrence Tube Hold (01/28/2021 7:55 PM EDT) Lawrence Hold Sample in lab. [facility] Blood specimen (specimen) Venous Draw / Unknown 01/28/2021 7:55 PM EDT 01/28/2021 8:12 PM EDT Cristian Miller MD CHEMISTRY ORDERABLE S Performing Organization Address City/[facility]/ZIP Co de Phone Number [facility] [place] [address] * Gold Tube HOLD (01/28/2021 7:55 PM EDT) Gold Hold Sample in lab. [facility] Blood specimen (specimen) Venous Draw / Unknown 01/28/2021 7:55 PM EDT 01/28/2021 8:13 PM EDT Cristian Miller MD CHEMISTRY ORDERABLE S Performing Organization Address City/[facility]/ZIP Co de Phone Number [facility] [place] [address] * Blue Tube HOLD (01/28/2021 7:55 PM EDT) Pathologist [facility] [place] Blue Hold Sample in lab. [facility] Blood specimen (specimen) Venous Draw / Unknown 01/28/2021 7:55 PM EDT 01/28/2021 8:12 PM EDT Cristian Miller MD [place] [address] * (ABNORMAL) Differential, Automated (01/28/2021 7:55 PM EDT) Pathologist [facility] [place] Neutrophils % 88.5 % [facility] Neutr Abs (ANC) 17.88(H) 1.70 - 6.10 x10(3)/ L [facility] Lymphocytes % 4.7 % [facility] Lymphocytes Abs 0.9 0.9 - 3.2 x10(3)/[facility] Monocytes % 4.9 % [facility] Monocyte Abs 1.0(H) 0.3 - 0.9 x10(3)/ L [facility] Eosinophils % 0.1 % [facility] Eosinophils Abs 0.0 0.0 - 0.4 x10(3)/ L [facility] Basophils % 0.5 % [facility] Basophils Abs 0.1 0.0 - 0.1 x10(3)/ L [facility] Immature Gran % 1.30 % [facility] Comment: Immature granulocytes(IG's)percentage and absolute count will include metamyelocytes, myelocytes, and promyelocytes. Blood smears from CBCs yielding IG's will be scanned manually for concordance. If this scan disagrees with the automated IG or if promyelocytes are noted, a manual differential will be performed. Anya Gran Abs 0.27(H) 0.00 - 0.04 x10(3)/ L [facility] Blood specimen (specimen) 01/28/2021 7:55 PM EDT 01/28/2021 8:12 PM EDT Narrative Resulting Agency Comment Spec In Lab Cristian Miller MD HEMATOLOGY ORDERABL ES [facility] [place] [address] * (ABNORMAL) Hemogram (01/28/2021 7:55 PM EDT) WBC 20.2(H) 4.0 - 9.5 x10(3)/[facility] RBC 2.75(L) 4.00 - 5.21 x10(6)/[facility] Hemoglobin 8.7(L) 11.7 - 15.5 gm/dL [facility] Hematocrit 25.9(L) 35.7 - 45.8 % [facility] MCV 94.2 82.6 - 94.4 fL [facility] MCH 31.6 27.1 - 32.0 pg [facility] MCHC 33.6 31.7 - 35.0 gm/dL [facility] Platelets 123(L) 145 - 357 x10(3)/[facility] RDWSD 44.3 37.0 - 46.0 [facility] RDWCV 12.9 11.5 - 14.1 % [facility] MPV 12.2 7.6 - 12.9 [facility] nRBC % Auto 0.0 % [facility] nRBC Abs Auto 0.000 0.000 - 0.000 x10(3)/[facility] Blood specimen (specimen) 01/28/2021 7:55 PM EDT 01/28/2021 8:12 PM EDT Narrative Resulting Agency Comment Spec In Lab Cristian Miller MD HEMATOLOGY ORDERABL ES Performing Organization Address [facility]/ZIP Co de Phone Number [facility] [place] [address] * (ABNORMAL) Lipase (01/28/2021 7:55 PM EDT) Lipase 1,294(H) 0 - 60 unit/L [facility] Blood specimen (specimen) 01/28/2021 7:55 PM EDT 01/28/2021 8:12 PM EDT Narrative Resulting Agency Comment Spec In Lab Shayy Bowie DO CHEMISTRY O RDERABLES Performing Organization Address [facility] [facility] Co de Phone Number [facility] [place] [address] * (ABNORMAL) Hepatic Function Panel (01/28/2021 7:55 PM EDT) Total Protein 6.1 6.1 - 8.0 gm/dL [facility] Albumin 1.9(L) 3.2 - 5.2 gm/dL [facility] AST 66(H) 0 - 30 unit/L [facility] ALT 43(H) 0 - 30 unit/L [facility] Alk Phos 269(H) 35 - 105 unit/L [facility] Total Bilirubin 1.0 0.2 - 1.3 mg/dL [facility] Bili, Direct 0.6(H) 0.0 - 0.3 mg/dL [facility] Blood specimen (specimen) 01/28/2021 7:55 PM EDT 01/28/2021 8:12 PM EDT Narrative Resulting Agency Comment Spec In Lab Shayy Bowie DO CHEMISTRY O RDERABLES Performing Organization Address City/[facility]/ZIP Co de Phone Number [facility] [place] [address] * (ABNORMAL) Basic Metabolic Panel (non-fasting) (01/28/2021 7:55 PM EDT) Glucose Lvl 123 65 - 199 mg/dL [facility] Comment:Diabetes: >=200 mg/d L plus symptoms BUN 35(H) 8 - 18 mg/dL [facility] Creatinine 1.80(H) 0.70 - 1.20 mg/dL [facility] Sodium 133(L) 135 - 145 mmol/L [facility] Potassium 4.4 3.5 - 5.0 mmol/L [facility] Comment: Please note: ??Patients with WBC >100,000 may have falsely elevated Potassium levels. ??For accurate Potassium quantification in these patients send serum separator tube (gold top) for subsequent determinations. ??Contact the Clinical Chemistry Laboratory if there are any questions. Chloride 100 98 - 107 mmol/L [facility] CO2 24 22 - 31 mmol/L [facility] Anion Gap 9 5 - 15 mmol/L [facility] Calcium 8.3(L) 8.5 - 10.5 mg/dL [facility] Estimated GFR 29(L) >=60 mL/min/1. 73 m?? [facility] Comment: This patient? s estimated glomerular filtration rate (eGFR) is between 29 mL/min/1.73 m2 (patients with less muscle mass) and 33 mL/min/1.73 m2 (patients with more muscle mass) [...] in addition to eGFR. Blood specimen (specimen) 01/28/2021 7:55 PM EDT 01/28/2021 8:12 PM EDT Narrative Resulting Agency Comment Spec In Lab Shayy Johnna Bowie DO CHEMISTRY O RDERABLES [facility] [place] [address] * COVID-19 PCR (01/28/2021 7:42 PM EDT) SARS-CoV-2 RNA PCR Not Detected Not Detected [facility] Comment: This result [...] using the Simplexa COVID-19 Direct Assay by [employer] as authorized by the FDA issued Emergency [...] Department of Pathology and Laboratory Medicine at [facility], certified under the Clinical Laboratory Improvement Amendments [...] fact sheets at the following FDA website: https://www.fda.gov/medical-devices/lnwtqoparuz-bchdvnx-5353-toxea-75-iejbtkmde- use-a phduuoryhxzky-plotlpx-fcnacyv/geaml-svdkmxmfmjy-dpid SARS-CoV-2 Source [employer] Swab MA RY [facility] Nasopharyngeal swab (specimen) 01/28/2021 7:42 PM EDT 01/28/2021 8:18 PM EDT Comment:Symptoms->Surveillan ce Narrative Resulting Agency Comment Spec In Lab Shayy Bowie DO MICROBIOLOG Y - GENERAL ORDERABLES [facility] [place] [address] documented in this encounter Visit Diagnoses Diagnosis Pancreatitis- Primary Acute pancreatitis Pancreatitis Acute pancreatitis Pancreatic pseudocyst Cyst and pseudocyst of pancreas Cystic duct calculus Calculus of gallbladder without mention of cholecystitis or obstruction Cystic duct calculus Calculus of gallbladder without mention of cholecystitis or obstruction Pancreatic pseudocyst Cyst and pseudocyst of pancreas Left lumbar radiculopathy Thoracic or lumbosacral neuritis or radiculitis, unspecified documented in this encounter Admitting Diagnoses Diagnosis Pancreatitis Acute pancreatitis documented in this encounter Administered Medications Inactive Administered Medications - up to 3 most recent administrations Medication Order MAR Action Action Date Dose Rate Site acetaminophen (Tylenol) tablet 975 mg 975 mg, Oral, EVERY 6 HOURS PRN, Starting on 02/02/21 at 0944, Until 02/03/21 at 1333, Pain, Maximum dose of acetaminophen is 4000 mg from all sources in 24 hours. When ordered for pain, acetaminophen should be given even when other ordered pain medications are indicated. , Routine Given 02/03/2021 9:08 AM EDT 975 mg Given 02/02/2021 9:56 AM EDT 975 mg calcium carbonate (Tums) chewable tablet 500-1,000 mg 500-1,000 mg, Oral, EVERY 4 HOURS PRN, Starting on Wed01/29/21 at 0954, Until Wed02/03/21 at 1333, Heartburn, Give 500 mg (1 tablet) for mild to moderate heartburn. Give 1,000 mg (2 tablets) for severe heartburn., Routine Given 02/02/2021 8:30 AM EDT 1,000 mg Given 02/01/2021 7:59 PM EDT 1,000 mg Given 02/01/2021 5:54 AM EDT 500 mg camphor-methyl salicyl-menthol (Bengay Ultra Strength) 4-30-10 % cream Topical (Top), 4 TIMES DAILY PRN, For pain, Starting on Wed01/31/21 at 0836, Until Wed02/03/21 at 1333, Application Site: Back dextrose 10% infusion 250 mL, at 1,000 mL/hr, Intravenous, EVERY 30 MIN PRN, Starting on Wed01/29/21 at 1033, Until Wed02/03/21 at 1333, For BG 50-70 mg/dL: Oral treatment preferred:?? [...] 30 mg, Oral, DAILY, First dose on Wed01/29/21 at 0900, Until Discontinued, Routine Given 02/03/2021 9:07 AM EDT 30 mg Given 02/02/2021 8:32 AM EDT 30 mg Given 02/01/2021 9:12 AM EDT 30 mg famotidine (Pepcid) tablet 20 mg 20 mg, Oral, 2 TIMES DAILY PRN, Starting on Wed01/31/21 at 1140, Until Wed02/03/21 at 1333, heartburn/GERD, Routine gabapentin (Neurontin) capsule 100 mg 100 mg, Oral, DAILY AT NOON, First dose on Wed01/29/21 at 1200, Until Discontinued, Routine Given 02/02/2021 12:48 PM EDT 100 mg Given 02/01/2021 11:40 AM EDT 100 mg Given 01/31/2021 11:40 AM EDT 100 mg gabapentin (Neurontin) capsule 200 mg 200 mg, Oral, 2 TIMES DAILY, First dose on Wed01/29/21 at 0900, Until Discontinued, Routine Given 02/03/2021 9:07 AM EDT 200 mg Given 02/02/2021 9:19 PM EDT 200 mg Given 02/02/2021 8:31 AM EDT 200 mg gadoterate meglumine (Dotarem) (0.5 mMol/mL) injection solution 0-100 mL 0-100 mL, Intravenous, ONCE PRN, 1 dose, Starting on Wed01/29/21 at 1934, Until Wed01/29/21 at 1932, Per Protocol, Radiology Contrast, Routine Given 01/29/2021 7:32 PM EDT 19 mLs glucagon (Glucagen) (1 mg/mL) injection solution 1 mg 1 mg, Intramuscular, EVERY 30 MIN PRN, Starting on Wed01/29/21 at 1033, Until Wed02/03/21 at 1333, Low blood sugar, For BG 50-70 mg/dL: [...] Buccal, EVERY 30 MIN PRN, Starting on Wed01/29/21 at 1033, Until Wed02/03/21 at 1333, Low blood sugar, For BG 50-70 mg/dL: [...] EVERY 8 HOURS SCHEDULED, First dose on Wed01/29/21 at 0600, Until Discontinued, Routine Given 02/03/2021 6:30 AM EDT 5,000 Unit s Given 02/02/2021 9:20 PM EDT 5,000 Units Given 02/02/2021 2:00 PM EDT 5,000 Units A bdominal Tissue HYDROmorphone (Dilaudid) (1 mg/mL) injection syringe 0.4 mg 0.4 mg, Intravenous, EVERY 4 HOURS PRN, Starting on Jodee 01/30/21 at 0944, Until 02/01/21 at 0954, Pain, If unable to take PO, Routine Given 01/30/2021 10:28 AM EDT 0.4 mg HYDROmorphone (Dilaudid) (1 mg/mL) injection syringe 0.4 mg 0.4 mg, Intravenous, EVERY 8 HOURS PRN, Starting on 02/01/21 at 1000, Until 02/03/21 at 1333, Pain, If unable to take PO, Routine hydrOXYzine (Atarax) tablet 25 mg 25 mg, Oral, ONCE PRN, 1 dose, Starting on Wed01/29/21 at 0954, Until Wed01/29/21 at 1815, Anxiety, Routine Given 01/29/2021 6:15 PM EDT 25 mg ibuprofen (Advil;Motrin) tablet 400 mg 400 mg, Oral, ONCE, 1 dose, On Wed01/28/21 at 2034, Administer orally with milk or food to minimize GI irritation , STAT Given 01/28/2021 8:45 PM EDT 400 mg insulin lispro (HumaLOG;Admelog) (100 unit/mL) subcutaneous injection vial 1-5 Units 1-5 Units, Subcutaneous, 3 TIMES DAILY BEFORE MEALS, First dose on Wed01/29/21 at 1130, Until Discontinued, CORRECTION BOLUS [1-4 Units] Sensitive [...] > 240 in 2 hours., Routine Given 02/03/2021 6:40 AM EDT 1 Units Given 02/02/2021 4:29 PM EDT 1 Units Le ft Arm Given 02/02/2021 12:09 PM EDT 1 Units L eft Arm lactated ringers infusion 200 mL/hr, Intravenous, CONTINUOUS, Starting on Wed01/30/21 at 1045, Until Wed01/31/21 at 1044 New Bag 01/31/2021 7:52 AM EDT 200 mL/hr 200 mL/hr New Bag 01/31/2021 2:57 AM EDT 200 mL/hr 200 mL/hr New Bag 01/30/2021 10:04 PM EDT 200 mL/hr 200 mL/hr lactated ringers infusion 200 mL/hr, Intravenous, CONTINUOUS, Starting on Wed01/31/21 at 0930, Until Wed02/01/21 at 0912 New Bag 02/01/2021 4:22 AM EDT 200 mL/hr 200 mL/hr New Bag 01/31/2021 11:05 PM EDT 200 mL/hr 200 mL/hr New Bag 01/31/2021 5:52 PM EDT 200 mL/hr 200 mL/hr lidocaine (Lidoderm) 5% topical patch 1 patch 1 patch, Transdermal, EVERY 24 HOURS, First dose on Wed01/28/21 at 2205, Until Discontinued, Apply patch(es) for 12 hours, and then remove for 12 hours., Routine Patch Applied 01/30/2021 10:03 PM EDT 1 patch 07- Back Lower (Left) Patch Applied 01/29/2021 9:33 PM EDT 1 patch 08- Back Lower (Right) Patch Applied 01/28/2021 10:41 PM EDT 1 patch 07- Back Lower (Left) lidocaine (Lidoderm) 5% topical patch 3 patch 3 patch, Transdermal, EVERY 24 HOURS, First dose (after last modification) on Wed01/31/21 at 2200, Until Discontinued, Apply patch(es) for 12 hours, and then remove for 12 hours., Routine Patch Applied 02/02/2021 9:20 PM EDT 3 patches 07- Back Lower (Left) Patch Applied 02/01/2021 9:07 PM EDT 3 patches 07- Back Lower (Left) Patch Applied 01/31/2021 9:17 PM EDT 3 patches 07- Back Lower (Left) lidocaine (Lidoderm) topical patch REMOVAL Transdermal, EVERY 24 HOURS, First dose (after last modification) on Wed01/31/21 at 1000, Until Discontinued, Remove lidocaine 5% patch magnesium sulfate 2 g in sterile water 50 mL infusion 2 g, Intravenous, ONCE, 1 dose, On Wed01/29/21 at 0007, Administer over 120 Minutes New Bag 01/29/2021 12:17 AM EDT 2 g 25 mL/hr melatonin tablet 3 mg 3 mg, Oral, NIGHTLY PRN, Starting on Wed01/29/21 at 0338, Until Wed02/03/21 at 1333, Sleep, Routine Given 01/30/2021 12:23 AM EDT 3 mg methocarbamoL (Robaxin) tablet 1,500 mg 1,500 mg, Oral, ONCE, 1 dose, On Wed02/02/21 at 1100, Routine Given 02/02/2021 10:33 AM EDT 1,500 mg metoprolol tartrate (Lopressor) tablet 12.5 mg 12.5 mg, Oral, EVERY 6 HOURS, First dose on Wed01/29/21 at 0402, Until Discontinued, Hold for SBP <90, HR <70, Routine Given 02/03/2021 6:31 AM EDT 12.5 mg Given 02/02/2021 11:52 PM EDT 12.5 mg Given 02/02/2021 6:36 PM EDT 12.5 mg mirtazapine (Remeron) tablet 7.5 mg 7.5 mg, Oral, NIGHTLY, First dose on Wed01/29/21 at 2100, Until Discontinued, Routine Given 02/02/2021 9:19 PM EDT 7.5 mg Given 02/01/2021 9:05 PM EDT 7.5 mg Given 01/31/2021 9:16 PM EDT 7.5 mg ondansetron (pf) (Zofran) (2 mg/mL) injection 4 mg 4 mg, Intravenous, EVERY 8 HOURS PRN, Starting on Wed01/30/21 at 0757, Until Wed01/30/21 at 0956, Nausea Given 01/30/2021 8:29 AM EDT 4 mg ondansetron (pf) (Zofran) (2 mg/mL) injection 4 mg 4 mg, Intravenous, EVERY 4 HOURS PRN, Starting on Wed01/30/21 at 1000, Until Wed02/03/21 at 1333, Nausea oxyCODONE (Roxicodone) tablet 2.5 mg 2.5 mg, Oral, EVERY 4 HOURS PRN, Starting on Wed01/29/21 at 0129, Until Jodee 01/30/21 at 1000, Pain, Routine Given 01/30/2021 8:33 AM EDT 2.5 mg Given 01/30/2021 4:25 AM EDT 2.5 mg Given 01/30/2021 12:23 AM EDT 2.5 mg oxyCODONE (Roxicodone) tablet 5 mg 5 mg, Oral, EVERY 4 HOURS PRN, Starting on Jodee 01/30/21 at 0944, Until 02/01/21 at 0954, Pain, Routine Given 02/01/2021 4:21 AM EDT 5 mg Given 01/31/2021 9:16 PM EDT 5 mg Given 01/31/2021 4:17 PM EDT 5 mg oxyCODONE (Roxicodone) tablet 5 mg 5 mg, Oral, EVERY 8 HOURS PRN, Starting on 02/01/21 at 1000, Until 02/03/21 at 1333, Pain, Routine Given 02/02/2021 9:19 PM EDT 5 mg Given 02/02/2021 12:48 PM EDT 5 mg Given 02/02/2021 3:57 AM EDT 5 mg pantoprazole EC (Protonix) tablet 40 mg 40 mg, Oral, DAILY, First dose on Wed01/29/21 at 0900, Until Discontinued, DO NOT CRUSH OR OPEN, Routine Given 02/03/2021 9:07 AM EDT 40 mg Given 02/02/2021 8:32 AM EDT 40 mg Given 02/01/2021 9:12 AM EDT 40 mg piperacillin-tazobactam (Zosyn) 3.375 g vial attach to sodium chloride 0.9% 50 mL Mini-Bag Plus 3.375 g, Intravenous, EVERY 8 HOURS, First dose on Wed01/29/21 at 0139, Until Discontinued, Administer over 4 Hours, Warning Vesicant/Irritant Medication Do not administer or Y-site with lactated ringers., Indication for (Active or Suspected): GI/Intra-abdominal New Bag 01/30/2021 11:15 AM EDT 3.375 g 12.5 mL/hr New Bag 01/30/2021 4:25 AM EDT 3.375 g 12.5 mL/hr New Bag 01/29/2021 8:14 PM EDT 3.375 g 12.5 mL/hr polyethylene glycoL (Miralax) packet 17 g 17 g, Oral, DAILY, First dose (after last modification) on Wed01/30/21 at 1045, Until Discontinued, Routine Given 01/30/2021 11:13 AM EDT 17 g prochlorperazine (Compazine) (5 mg/mL) injection 10 mg 10 mg, Intravenous, EVERY 6 HOURS PRN, Starting on Wed01/30/21 at 0956, Until Wed02/03/21 at 1333, Nausea, For nausea refractory to zofran, Routine senna-docusate (Pericolace) 8.6-50 mg per tablet 2 tablet 2 tablet, Oral, 2 TIMES DAILY, First dose on Wed01/29/21 at 0900, Until Discontinued, Routine Given 02/02/2021 9:19 PM EDT 2 tablets Given 01/30/2021 8:33 AM EDT 2 tablets Given 01/29/2021 9:32 PM EDT 2 tablets sodium chloride 0.9 % (flush) flush 5 mL 5 mL, Intravenous, 2 TIMES DAILY, First dose on Wed01/29/21 at 0900, Until Discontinued, Routine Given 02/03/2021 9:10 AM EDT 5 mLs Given 02/02/2021 9:20 PM EDT 5 mLs Given 02/02/2021 9:00 AM EDT 5 mLs sodium chloride 0.9% 1,000 mL IV bolus at 2,000 mL/hr, Intravenous, ONCE, 1 dose, On Wed01/29/21 at 0111 New Bag 01/29/2021 1:38 AM EDT 2000 mL/hr sodium chloride 0.9% infusion 200 mL/hr, Intravenous, CONTINUOUS, Starting on Wed01/29/21 at 0133, Until Wed01/29/21 at 1332 New Bag 01/29/2021 1:33 AM EDT 200 mL/hr 200 mL/hr sodium chloride 0.9% infusion 200 mL/hr, Intravenous, CONTINUOUS, Starting on Wed01/29/21 at 0956, Until Wed01/29/21 at 2155 New Bag 01/29/2021 10:22 AM EDT 200 mL/hr 200 mL/hr technetium (Tc-99m) mebrofenin injection 0-6 mCi 0-6 mCi, Intravenous, ONCE PRN, 1 dose, Starting on Wed01/29/21 at 1307, Until Wed01/29/21 at 1118, Per Protocol, Radiology Contrast, Routine Given 01/29/2021 11:18 AM EDT 5.2 mCi Right Arm documented in this encounter Active and Recently Administered Medications Times are shown in EDT. Scheduled Medication Order 02/01/2021 02/02/2021 02/03/[address] (Cymbalta) capsule 30 mg 30 mg, Oral, DAILY, First dose on Wed01/29/21 at 0900, Until Discontinued, Routine 0912 (Given - Provider: Li Day RN) 0832 (Given - Provider: Jose Francisco De Dios LPN) 0907 (Given - Provider: Jose Francisco De Dios LPN) gabapentin (Neurontin) capsule 100 mg 100 mg, Oral, DAILY AT NOON, First dose on Wed01/29/21 at 1200, Until Discontinued, Routine 1140 (Given - Provider: Li Day RN) 1248 (Given - Provider: Aisilnn Grant RN) gabapentin (Neurontin) capsule 200 mg 200 mg, Oral, 2 TIMES DAILY, First dose on Wed01/29/21 at 0900, Until Discontinued, Routine 0933 (Given - Provider: Li Day RN)2104 (Given - Provider: Ghazala Shaffer RN) 0831 (Given - Provider: Jose Francisco De Dios LPN)2119 (Given - Provider: Jazzy Suh RN) 0907 (Given - Provider: Jose Francisco De Dios LPN) heparin (porcine) (5,000 units/1 mL) subcutaneous injection 5,000 Units 5,000 Units, Subcutaneous, EVERY 8 HOURS SCHEDULED, First dose on Wed01/29/21 at 0600, Until Discontinued, Routine 0554 (Given - Provider: Hema Wheeler RN)1519 (Given - Provider: Li Day RN)2105 (Given - Provider: Ghazaal Shaffer RN) 0700 (Given - Provider: Ghazala Shaffer RN)1400 (Given - Provider: Jose Francisco De Dios LPN)2120 (Given - Provider: Jazzy Suh RN) 0630 (Given - Provider: Jazzy Suh RN) insulin lispro (HumaLOG;Admelog) (100 unit/mL) subcutaneous injection vial 1-5 Units(Linked Group 1) 1-5 Units, Subcutaneous, 3 TIMES DAILY BEFORE MEALS, First dose on Wed01/29/21 at 1130, Until Discontinued, CORRECTION BOLUS [1-4 Units] Sensitive [...] of > 240 in 2 hours., Routine 0703 (Not Given - Provider: Hema Wheeler RN - Reason: Order parameters not met)1140 (Given - Provider: iL Day RN)1630 (Not Given - Provider: Li Day RN - Reason: Order parameters not met) 0659 (Not Given - Provider: Ghazala Shaffer RN - Reason: Order parameters not met - Comment: BG 128)1209 (Given - Provider: Jose Francisco De Dios LPN)1629 (Given - Provider: Jose Francisco De Dios LPN) 0640 (Given - Provider: Jazzy Suh RN)1130 (Due) lidocaine (Lidoderm) 5% topical patch 3 patch(Linked Group 2) 3 patch, Transdermal, EVERY 24 HOURS, First dose (after last modification) on Wed01/31/21 at 2200, Until Discontinued, Apply patch(es) for 12 hours, and then remove for 12 hours., Routine 2106 (Patch Applied - Provider: Ghazala Shaffer RN) 2119 (Patch Applied - Provider: Jazzy Suh, RODERICK) lidocaine (Lidoderm) topical patch REMOVAL(Linked Group 2) Transdermal, EVERY 24 HOURS, First dose (after last modification) on Wed01/31/21 at 1000, Until Discontinued, Remove lidocaine 5% patch 1000 (Patch Removed - Provider: Li Day RN) 1000 (Patch Removed - Provider: Aislinn Grant RN) 0909 (Patch Removed - Provider: Jose Francisco De Dios LPN) methocarbamoL (Robaxin) tablet 1,500 mg (COMPLETED) 1,500 mg, Oral, ONCE, 1 dose, On Wed02/02/21 at 1100, Routine 1033 (Given - Provider: Jose Francisco De Dios LPN) metoprolol tartrate (Lopressor) tablet 12.5 mg 12.5 mg, Oral, EVERY 6 HOURS, First dose on Wed01/29/21 at 0402, Until Discontinued, Hold for SBP <90, HR <70, Routine 0556 (Given - Provider: Hema Wheeler RN)1140 (Given - Provider: Li Day RN)1934 (Given - Provider: Li Day RN) 0022 (Given - Provider: Ghazala Shaffer RN)0700 (Given - Provider: Ghazala Shaffer RN)1248 (Given - Provider: Aislinn Grant RN)1836 (Given - Provider: Jose Francisco De Dios LPN)2352 (Given - Provider: Jazzy Suh RN) 0631 (Given - Provider: Jazzy Suh, RODERICK) mirtazapine (Remeron) tablet 7.5 mg 7.5 mg, Oral, NIGHTLY, First dose on Wed01/29/21 at 2100, Until Discontinued, Routine 2104 (Given - Provider: Ghazala Shaffer RN) 2118 (Given - Provider: Jazzy Suh, RODERICK) pantoprazole EC (Protonix) tablet 40 mg 40 mg, Oral, DAILY, First dose on Wed01/29/21 at 0900, Until Discontinued, DO NOT CRUSH OR OPEN, Routine 09 (Given - Provider: Li Day RN) 0832 (Given - Provider: Jose Francisco De Dios LPN) 0907 (Given - Provider: Jose Francisco De Dios LPN) polyethylene glycoL (Miralax) packet 17 g 17 g, Oral, DAILY, First dose (after last modification) on Jodee 01/30/21 at 1045, Until Discontinued, Routine 0900 (Not Given - Provider: Li Day RN - Reason: Contraindicated) 09 (Not Given - Provider: Jose Francisco De Dios LPN - Reason: Patient/family refused) 09 (Not Given - Provider: Jose Francisco De Dios LPN - Reason: Patient/family refused) senna-docusate (Pericolace) 8.6-50 mg per tablet 2 tablet 2 tablet, Oral, 2 TIMES DAILY, First dose on Wed01/29/21 at 0900, Until Discontinued, Routine 09 (Not Given - Provider: Li Day RN - Reason: Contraindicated)2100 (Not Given - Provider: Ghazala Shaffer RN - Reason: Patient/family refused) 899 (Not Given - Provider: Jose Francisco De Dios LPN - Reason: Patient/family refused)2118 (Given - Provider: Jazzy Suh, RODERICK) 09 (Not Given - Provider: Jose Francisco De Dios LPN - Reason: Patient/family refused) sodium chloride 0.9 % (flush) flush 5 mL 5 mL, Intravenous, 2 TIMES DAILY, First dose on Wed01/29/21 at 0900, Until Discontinued, Routine 912 (Given - Provider: Li Day RN)2108 (Given - Provider: Ghazala Shaffer RN) 09 (Given - Provider: Aislinn Grant, RODERICK)2119 (Given - Provider: Jazzy Suh, RODERICK) 09 (Given - Provider: Jenny Tinajero, RODERICK) Continuous Medication Order 02/01/2021 02/02/2021 02/03/2021 lactated ringers infusion (CANCELED) 200 mL/hr, Intravenous, CONTINUOUS, Starting on Wed01/31/21 at 0930, Until 02/01/21 at 0912 0422 (New Bag - Provider: Hema Wheeler RN) PRN Medication Order 02/01/2021 02/02/2021 02/03/2021 acetaminophen (Tylenol) tablet 975 mg 975 mg, Oral, EVERY 6 HOURS PRN, Starting on Wed02/02/21 at 0944, Until Wed02/03/21 at 1333, Pain, Maximum dose of acetaminophen is 4000 mg from all sources in 24 hours. When ordered for pain, acetaminophen should be given even when other ordered pain medications are indicated. , Routine 0956 (Given - Provider: Tanesha Laura RN) 09 (Given - Provider: Jose Francisco De Dios LPN) calcium carbonate (Tums) chewable tablet 500-1,000 mg 500-1,000 mg, Oral, EVERY 4 HOURS PRN, Starting on Wed01/29/21 at 0954, Until Wed02/03/21 at 1333, Heartburn, Give 500 mg (1 tablet) for mild to moderate heartburn. Give 1,000 mg (2 tablets) for severe heartburn., Routine 0554 (Given - Provider: Hema Wheeler RN)1958 (Given - Provider: Felicitas Valera RN) 0830 (Given - Provider: Jose Francisco De Dios LPN) camphor-methyl salicyl-menthol (Bengay Ultra Strength) 4-30-10 % cream Topical (Top), 4 TIMES DAILY PRN, For pain, Starting on Wed01/31/21 at 0836, Until Wed02/03/21 at 1333, Application Site: Back dextrose 10% infusion(Linked Group 3) 250 mL, at 1,000 mL/hr, Intravenous, EVERY 30 MIN PRN, Starting on Wed01/29/21 at 1033, Until Wed02/03/21 at 1333, For BG 50-70 mg/dL: Oral treatment preferred:?? [...] for the duration of the active insulin. famotidine (Pepcid) tablet 20 mg 20 mg, Oral, 2 TIMES DAILY PRN, Starting on Wed01/31/21 at 1140, Until Wed02/03/21 at 1333, heartburn/GERD, Routine glucagon (Glucagen) (1 mg/mL) injection solution 1 mg(Linked Group 3) 1 mg, Intramuscular, EVERY 30 MIN PRN, Starting on Wed01/29/21 at 1033, Until Wed02/03/21 at 1333, Low blood sugar, For BG 50-70 mg/dL: [...] Buccal, EVERY 30 MIN PRN, Starting on Wed01/29/21 at 1033, Until Wed02/03/21 at 1333, Low blood sugar, For BG 50-70 mg/dL: [...] HYDROmorphone (Dilaudid) (1 mg/mL) injection syringe 0.4 mg(Linked Group 4) 0.4 mg, Intravenous, EVERY 8 HOURS PRN, Starting on 02/01/21 at 1000, Until 02/03/21 at 1333, Pain, If unable to take PO, Routine 1059 (See Alternative - Provider: Li Day, RODERICK)1934 (See Alternative - Provider: Li Day, RODERICK) 0357 (See Alternative - Provider: Sahra Boogie RN)1248 (See Alternative - Provider: Aislinn Grant RN)2119 (See Alternative - Provider: Jazzy Suh, RODERICK) lidocaine (Xylocaine) 1% (10 mg/mL) injection 3 mg 3 mg (0.3 mL), Subcutaneous, ONCE PRN, 1 dose, Starting on Wed01/29/21 at 0338, Until Wed02/03/21 at 1333, for discomfort with PIV insertion, Routine magnesium hydroxide (Milk of Magnesia) (240 mg/mL) oral liquid 10 mL 10 mL, Oral, DAILY PRN, Starting on Wed01/29/21 at 0338, Until Wed02/03/21 at 1333, Constipation, Administer if needed per patient's routine or if no bowel movement within 48 hours to achieve: (1) One bowel movement every 48 hours, AND (2) Without straining. If multiple PRN bowel medications ordered, start with magnesium hydroxide, then bisacodyl. Multiple medications may be given concomitantly for constipation., Routine melatonin tablet 3 mg 3 mg, Oral, NIGHTLY PRN, Starting on 01/29/21 at 0338, Until 02/03/21 at 1333, Sleep, Routine ondansetron (pf) (Zofran) (2 mg/mL) injection 4 mg 4 mg, Intravenous, EVERY 4 HOURS PRN, Starting on Jodee 01/30/21 at 1000, Until 02/03/21 at 1333, Nausea oxyCODONE (Roxicodone) tablet 5 mg (CANCELED) 5 mg, Oral, EVERY 4 HOURS PRN, Starting on Jodee 01/30/21 at 0944, Until 02/01/21 at 0954, Pain, Routine 0421 (Given - Provider: Hema Wheeler RN) oxyCODONE (Roxicodone) tablet 5 mg(Linked Group 4) 5 mg, Oral, EVERY 8 HOURS PRN, Starting on 02/01/21 at 1000, Until 02/03/21 at 1333, Pain, Routine 1059 (Given - Provider: Li Day RN)1934 (Given - Provider: Li Day RN) 0357 (Given - Provider: Sahra Boogie RN)1248 (Given - Provider: Aislinn Grant RN)2119 (Given - Provider: Jazzy Suh RN) prochlorperazine (Compazine) (5 mg/mL) injection 10 mg 10 mg, Intravenous, EVERY 6 HOURS PRN, Starting on Jodee 01/30/21 at 0956, Until 02/03/21 at 1333, Nausea, For nausea refractory to zofran, Routine sodium chloride 0.9 % (flush) flush 5-20 mL 5-20 mL, Intravenous, EVERY 1 MIN PRN, Starting on 01/29/21 at 0338, Until Wed02/03/21 at 1333, flush, Flush pertains to all indwelling lines. Flush per protocol found in the job aid using the link provided on this medication record., Routine Linked Groups Order Group 1: POCT Fingerstick Glucose (CANCELED) Routine, 4 TIMES DAILY BEFORE MEALS & AT BEDTIME, First occurrence on Wed01/29/21 at 1100, Until Specified, Consider choosing FOUR TIMES A DAY BEFORE MEALS AND AT BEDTIME as frequency for: Patients who have good hypoglycemia awareness: -Patients who are eating meals during the day and sleeping at night -Patient who are otherwise stable And insulin lispro (HumaLOG;Admelog) (100 unit/mL) subcutaneous injection vial 1-5 UnitsJump to med 1-5 Units, Subcutaneous, 3 TIMES DAILY BEFORE MEALS, First dose on Wed01/29/21 at 1130, Until Discontinued, CORRECTION BOLUS [1-4 Units] Sensitive [...] 240 in 2 hours., Routine Group 2: lidocaine (Lidoderm) 5% topical patch 3 patchJump to med 3 patch, Transdermal, EVERY 24 HOURS, First dose (after last modification) on Wed01/31/21 at 2200, Until Discontinued, Apply patch(es) for 12 hours, and then remove for 12 hours., Routine And lidocaine (Lidoderm) topical patch REMOVALJump to med Transdermal, EVERY 24 HOURS, First dose (after last modification) on Wed01/31/21 at 1000, Until Discontinued, Remove lidocaine 5% patch Group 3: glucose (GLUTOSE) 40% oral geLJump to med 15-30 g, Buccal, EVERY 30 MIN PRN, Starting on Wed01/29/21 at 1033, Until Wed02/03/21 at 1333, Low blood sugar, For BG 50-70 mg/dL: [...] Intravenous, EVERY 30 MIN PRN, Starting on Wed01/29/21 at 1033, Until Wed02/03/21 at 1333, For BG 50-70 mg/dL: Oral treatment preferred:?? [...] Intramuscular, EVERY 30 MIN PRN, Starting on Wed01/29/21 at 1033, Until Wed02/03/21 at 1333, Low blood sugar, For BG 50-70 mg/dL: [...] the duration of the active insulin., Routine Group 4: oxyCODONE (Roxicodone) tablet 5 mgJump to med 5 mg, Oral, EVERY 8 HOURS PRN, Starting on 02/01/21 at 1000, Until Wed02/03/21 at 1333, Pain, Routine Or HYDROmorphone (Dilaudid) (1 mg/mL) injection syringe 0.4 mgJump to med 0.4 mg, Intravenous, EVERY 8 HOURS PRN, Starting on 02/01/21 at 1000, Until Wed02/03/21 at 1333, Pain, If unable to take PO, Routine documented in this encounter Care Teams Manager Mall Relationship Specialty Start Date End Date Asia Gil DO [address] [place] [address] PCP - General Family Medicine 07/09/20 documented as of this encounter
--- OUTSIDE RECORDS SUMMARY | 2024-05-02 12:11 | XMS_ITS | Encounter Summary ---
[place] [address] Care Team Providers Care Street Commissioner Name Role Phone Angelibrahima Asiarafaela [place] DO Primary Care Provider +1- [phone] Encounter Details Date Type Department Care Team (Late st Contact Info) Description 02/04/2021 2:50 PM EDT Ancillary Procedure [place] [address] Brittny Woods MD [facility] [place] [address] Social History Tobacco Use Types [...] 10:30 AM EDT Hospital En[place] [phone] Bk Contreras MD [facility] [place] [address] 05/08/2024 10:30 AM EDT - 05/08/2024 11:00 AM EDT Surgery Pain Management [place] [phone] Bk Contreras MD [facility] [place] [address] INJECTION, ANESTHETIC AGENT AND/OR STEROID, TRANSFORAMINAL EPIDURAL, LUMBAR OR SACRAL, SINGLE LEVEL (WRVU 1.9) 05/12/2024 1:00 PM EDT Office Visit Cardiology at [place] [phone] Sadi Styles MD [facility] [place] [address] 05/29/2024 10:15 AM EDT TH Visit (TeleHealth) [place] [phone] Natalee Sanchez APRN [facility] [place] [address] Scheduled Procedures Name Priority Associated Diagnoses Date/Ti me INJECTION, ANESTHETIC AGENT AND/OR STEROID, TRANSFORAMINAL EPIDURAL, LUMBAR OR SACRAL, SINGLE LEVEL (WRVU 1.9) Left lumbar radiculopathy 05/08/2024 10:30 AM EDT documented as of this encounter Procedures Procedure Name Priority Date/Time Associated Diagnosis Comments FILM LIBRARY STORAGE ONLY CT ABDOMEN AND PELVIS Routine 02/04/2021 2:48 PM EDT documented in this encounter Results * Film Library- Storage Only CT Abdomen & Pelvis (02/04/2021 2:48 PM EDT) Narrative [facility] - 02/04/2021 2:48 PM EDT This exam is auto-finalizing. It's purpose is for storage only. Brittny Woods MD [facility] FILM LIBRARY ORD ERABLES DH RAD [place], [place] documented in this encounter Visit Diagnoses Not on filedocumented in this encounter Care Teams Street Commissioner Relationship Specialty Start Date End Date Asia Gil DO [address] [place] [address] PCP - General Family Medicine 07/09/20 documented as of this encounter
--- OUTSIDE RECORDS SUMMARY | 2024-05-02 12:11 | XMS_ITS | Encounter Summary ---
[place] [address] Care Team Providers Care Stereoplotter Operator Name Role Phone Angelibrahima Asiarafaela [place] DO Primary Care Provider +1- [phone] Encounter Details Date Type Department Care Team (Late st Contact Info) Description 02/04/2021 3:00 PM EDT Ancillary Procedure [place] [phone] Brittny Woods MD [facility] [place] [address] Social History Tobacco Use Types Packs/Day Years [...] 10:30 AM EDT Hospital Encounter [place] [phone] Bk Contreras MD [facility] [place] [address] 05/08/2024 10:30 AM EDT - 05/08/2024 11:00 AM EDT Surgery Pain Management [place] [phone] Bk Contreras MD [facility] [place] [address] INJECTION, ANESTHETIC AGENT AND/OR STEROID, TRANSFORAMINAL EPIDURAL, LUMBAR OR SACRAL, SINGLE LEVEL (WRVU 1.9) 05/12/2024 1:00 PM EDT [place] [address] Sadi Styles MD [facility] [place] [address] 05/29/2024 10:15 AM EDT TH Visit (TeleHealth) [place] [phone] Natalee aSnchez APRN [facility] [place] [address] Scheduled Procedures Name Priority Associated Diagnoses Date/Ti me INJECTION, ANESTHETIC AGENT AND/OR STEROID, TRANSFORAMINAL EPIDURAL, LUMBAR OR SACRAL, SINGLE LEVEL (WRVU 1.9) Left lumbar radiculopathy 05/08/2024 10:30 AM EDT documented as of this encounter Procedures Procedure Name Priority Date/Time Associated Diagnosis Comments FILM LIBRARY STORAGE ONLY DX CHEST Routine 02/04/2021 2:50 PM EDT documented in this encounter Results * Film Library- Storage Only DX Chest (02/04/2021 2:50 PM EDT) Narrative [facility] - 02/04/2021 2:50 PM EDT This exam is auto-finalizing. It's purpose is for storage only. Brittny Woods MD IMG FILM LIBRARY ORD ERABLES DH RAD [place], [place] documented in this encounter Visit Diagnoses Not on filedocumented in this encounter Care Teams Stereoplotter Operator Relationship Specialty Start Date End Date Asia Gil DO [address] [place] [address] PCP - General Family Medicine 07/09/20 documented as of this encounter
--- OUTSIDE RECORDS SUMMARY | 2024-05-02 12:11 | XMS_ITS | Encounter Summary ---
Author Organization [facility] [place] [address] Care Team Providers Care Simulation Technician Name Role Phone Aisa Gil DO Primary Care Provider +1- [phone] Encounter Details Date Type Department Care Team (Late st Contact Info) Description 02/04/2021 Telephone [place] [address] Eliel Lara MD [facility] [place] [address] Social History Tobacco Use Types Packs/Day Years [...] encounter Miscellaneous Notes * Telephone Encounter - Eliel Lara MD - 02/04/2021 2:26 PM EDTSummary: ICU transfer request Tele ICU Transfer Request Received a call about Ms. Coley from [facility] where she was admitted last night. Briefly, Ms. Jim recently admitted to [facility] with severe pancreatitis, discharged yesterday. Last night, she presented to [facility] with severe dyspnea, a leukocytosis, a lactic acidosis (5.5 on presentation) and clinical evidence of volume overload/CHF. She was admitted there last night and started on BIPAP therapy and lasix. Since admission, her hypoxia has improved but she still has increased work of breathing treated with BIPAP. Her leukocytosis is improving and her lactate cleared. She has persistent RUQ abdominal pain and imaging there reportedly showed a large organized fluid collection in the RUQ concerning for abscess or infected fluid collection. She was started on vanc/cefepime on presentation, and coverage now includes meropenem for infected pancreatic pseudocyst. Of note, a TTE there showed a reduced EF of 35-40% which is new compared to prior echos on file. She had some T-wave changes laterally and a troponin that peaked at 0.2. She also has a creatinine of 1.5 which has trended down since admission. Transfer is requested for: - possible infected pancreatic fluid collection (they are pushing images) - NSTEMI with newly depressed EF - increased work of breathing requiring BIPAP with clinical evidence of CHF on exam - anemia with hg down to 7.7 since admission despite diuresis (guaiac negative, receiving 1U pRBCs now) She was accepted to the [facility] Team documented in this encounter Plan of Treatment Upcoming Encounters Date Type Department Care Team (Latest Contact Info) Description 05/08/2024 10:30 AM EDT Hospital [place] [address] Bk Contreras MD [facility] [place] [address] 05/08/2024 10:30 AM EDT - 05/08/2024 11:00 AM EDT [place] [phone] Bk Contreras MD [facility] [place] [address] INJECTION, ANESTHETIC AGENT AND/OR STEROID, TRANSFORAMINAL EPIDURAL, LUMBAR OR SACRAL, SINGLE LEVEL (WRVU 1.9) 05/12/2024 1:00 PM EDT Office Visit Cardiology at [address] [address] Sadi Styles MD [facility] [place] [address] 05/29/2024 10:15 AM EDT TH Visit (TeleHealth) [place] [phone] Natalee Sanchez APRN [facility] [place] [address] Scheduled Procedures Name Priority Associated Diagnoses Date/Ti me INJECTION, ANESTHETIC AGENT AND/OR STEROID, TRANSFORAMINAL EPIDURAL, LUMBAR OR SACRAL, SINGLE LEVEL (WRVU 1.9) Left lumbar radiculopathy 05/08/2024 10:30 AM EDT documented as of this encounter Visit Diagnoses Not on filedocumented in this encounter Care Teams Simulation Technician Relationship Specialty Start Date End Date Asia Gil DO [address] [place] [address] PCP - General Family Medicine 07/09/20 documented as of this encounter
--- OUTSIDE RECORDS SUMMARY | 2024-05-02 12:11 | XMS_ITS | Encounter Summary ---
[place] [address] Care Team Providers Care Rn Anesthesiology Name Role Phone Angelibrahima Asiarafaela Dunn DO Primary Care Provider +1- [phone] Encounter Details Date Type Department Care Team (Late st Contact Info) Description 02/04/2021 2:55 PM EDT Ancillary Procedure [place] [phone] Brittny Woods MD [facility] [place] [address] Social History Tobacco Use Types Packs/Day Years [...] 10:30 AM EDT Hospital Encounter [place] [phone] Bk Contreras MD [facility] [place] [address] 05/08/2024 10:30 AM EDT - 05/08/2024 11:00 AM EDT Surgery Pain Management [place] [phone] Bk Contreras MD [facility] [place] [place] [address] INJECTION, ANESTHETIC AGENT AND/OR STEROID, TRANSFORAMINAL EPIDURAL, LUMBAR OR SACRAL, SINGLE LEVEL (WRVU 1.9) 05/12/2024 1:00 PM EDT [place] [address] Sadi Styles MD [facility] [place] [address] 05/29/2024 10:15 AM EDT TH Visit (TeleHealth) [facility] [place] [phone] Natalee Sanchez APRN [facility] [place] [address] Scheduled Procedures Name Priority Associated Diagnoses Date/Ti me INJECTION, ANESTHETIC AGENT AND/OR STEROID, TRANSFORAMINAL EPIDURAL, LUMBAR OR SACRAL, SINGLE LEVEL (WRVU 1.9) Left lumbar radiculopathy 05/08/2024 10:30 AM EDT documented as of this encounter Procedures Procedure Name Priority Date/Time Associated Diagnosis Comments FILM LIBRARY STORAGE ONLY ULTRASOUND STUDY Routine 02/04/2021 2:49 PM EDT documented in this encounter Results * Film Library- Storage Only Ultrasound Study (02/04/2021 2:49 PM EDT) Narrative [facility] - 02/04/2021 2:49 PM EDT This exam is auto-finalizing. It's purpose is for storage only. Brittny Woods MD IMG FILM LIBRARY ORD ERABLES DH RAD [place], [place] documented in this encounter Visit Diagnoses Not on filedocumented in this encounter Care Teams Rn Anesthesiology Relationship Specialty Start Date End Date Asia Gil DO [address] [place] [address] PCP - General Family Medicine 07/09/20 documented as of this encounter
--- OUTSIDE RECORDS SUMMARY | 2024-05-02 12:11 | XMS_ITS | Encounter Summary ---
Author Organization [facility] [place] [address] Care Team Providers Care Tool Machine Setup Operator Name Role Phone Asia Gil DO Primary Care Provider +1- [phone] Reason for Referral * Consultation (Routine) - Closed Specialty Diagnoses / Procedures Referred By Leonel chin Referred To Contact Gastroenterology Diagnoses Acute biliary pancreatitis, unspecified complication status Pancreatic pseudocyst Laci Epps MD [facility] [place] [address] [facility] [address] [place] [address] Referral ID Status Reason Start Date Expiration Date V isits Requested Visits Authorized [id number] Closed Consult, Test & Treat 02/05/2021 02/05/2022 1 1 Encounter Details Date Type Department Care Team (Late st Contact Info) Description 02/05/2021 Orders Only [place] [address] Laci Epps MD [facility] [place] [address] Acute biliary pancreatitis, unspecified complication status; Pancreatic pseudocyst Social History Tobacco Use Types Packs/Day Years [...] 10:30 AM EDT Hospital Encounter Pain Management [place] [phone] Bk Contreras MD [facility] [place] [address] 05/08/2024 10:30 AM EDT - 05/08/2024 11:00 AM EDT Surgery Pain Management [place] [phone] Bk Contreras MD [facility] [place] [address] INJECTION, ANESTHETIC AGENT AND/OR STEROID, TRANSFORAMINAL EPIDURAL, LUMBAR OR SACRAL, SINGLE LEVEL (WRVU 1.9) 05/12/2024 1:00 PM EDT Office [place] [address] Sadi Styles MD [facility] [place] [address] 05/29/2024 10:15 AM EDT TH Visit (TeleHealth) [facility] at [place] [phone] Natalee Sanchez, DRAFTSPERSON [facility] [place] [address] Scheduled Procedures Name Priority Associated Diagnoses Date/Ti me INJECTION, ANESTHETIC AGENT AND/OR STEROID, TRANSFORAMINAL EPIDURAL, LUMBAR OR SACRAL, SINGLE LEVEL (WRVU 1.9) Left lumbar radiculopathy 05/08/2024 10:30 AM EDT Scheduled Referrals Name Type Priority Associated Diagnoses Order Schedule Referral to Gastroenterology Outpatient Referral Routine Acute biliary pancreatitis, unspecified complication status Pancreatic pseudocyst Ordered: 02/05/2021 documented as of this encounter Visit Diagnoses Diagnosis Acute biliary pancreatitis, unspecified complication status Pancreatic pseudocyst Cyst and pseudocyst of pancreas Left lumbar radiculopathy Thoracic or lumbosacral neuritis or radiculitis, unspecified documented in this encounter Care Teams Tool Machine Setup Operator Relationship Specialty Start Date End Date Asia Gil DO [address] [place] [address] PCP - General Family Medicine 07/09/20 documented as of this encounter
--- OUTSIDE RECORDS SUMMARY | 2024-05-02 12:11 | XMS_ITS | Encounter Summary ---
[place] [address] Care Team Providers Care Printed Circuit Boards Contact Printer Name Role Phone Asia Gil DO Primary Care Provider [phone] Reason for Visit * Auth/Cert Specialty Diagnoses / Procedures Referred By Leonel t Referred To Contact Diagnoses Pancreatitis NSTEMI, pancreatic pseudocyst Procedures emergency ipi Referral ID Status Reason Start Date Expiration Date Visits Re quested Visits Authorized [id number] 1 1 Encounter Details Date Type Department Care Team (Late st Contact Info) Description 02/07/2021 12:01 PM EDT - 02/07/2021 1:01 PM EDT Surgery [place] [address] Antonio Cruz MD [facility] [place] [address] CARDIAC CATHETERIZATION Social History Tobacco Use Types [...] Sign Reading Time Taken Comments Blood Pressure 134/70 02/07/2021 12:00 PM EDT Pulse 101 02/06/2021 8:12 PM EDT Temperature 37.1 ??C (98.8 ??F) 02/07/2021 1 2:00 PM EDT Respiratory Rate 16 02/07/2021 12:0 0 PM EDT Oxygen Saturation 95% 02/07/2021 12: 00 PM EDT Inhaled Oxygen Concentration - - Weight 88.9 kg (195 lb 15.8 oz) 02/07/2021 7:00 AM EDT Height 160 cm (5' 3) 02/04/2021 [...] BID. Please continue to monitor her response. Marylouhas been instructed to call if her weight [...] sleep apnea by a sleep study in [place]. She has not gotten a CPAP machine [...] disease) Added automatically from request for surgery [id number] ??? Pancreatic pseudocyst Resolved Hospital Problems Diagnosis Date Resolved ??? Pancreatitis 02/06/2021 Active Non-Hospital Problems Diagnosis ??? PONV (postoperative nausea and vomiting) ??? Cystic duct calculus ??? RUQ pain Added automatically from request for surgery [id number] ??? Anxiety ??? Diabetic neuropathy ??? Nonalcoholic [...] of breath prompted her to present to [facility] where she was found to be tachypneic and sating in the 70s on room air with heart rates in the 150s. Labs were significant for a WBC of 32, initial troponin negative subsequent troponin 0.2, proBNP of >18060. ? RUQ ultrasound - large complex fluid [...] started on BiPAP. ?? On arrival at [facility] she is hemodynamically stable and sating well [...] your PCP office 03/20/[address] Cruz [facility] cardiology Heart Failure (HF) Action plan Your [...] AM Yves Holt MD General Surgery at [facility] Arrive at: Theater Teacher Area [phone] 03/20/2021 8:00 AM Antonio Cruz MD Cardiology at [facility] Arrive at: Theater Teacher Area [phone] Future Orders Complete By Expires Referral to Home Health - at DISCHARGE [OOK2436 CPT(R)] As directed Process Instructions: Scheduling Instructions: Comments: DOCUMENTATION FOR VNA SERVICES (INCLUDING THOSE PATIENTS WITH MEDICARE COVERAGE REQUIRING HOME VNA SERVICES AND/OR HOSPICE SERVICES) PATIENT'S LOCATION: Toyin Lion [address] [place] [id number] Mobile #2: [phone] (daughter Linda) Sheet Fed Printer's Name: Patient In discussion with the attending physician, it is certified that this patient is under their care and that they, or a Nurse Practitioner, Clinical Nurse Specialist or Physician Automation Mechanic who is working directly with them, had [...] appropriate. SW: Please assist with Social needs. FLIGHT DATA TECHNICIAN: Assist patient with needs HOME HEALTH CARE AGENCY: [facility]. PHONE: [phone] FAX: [phone] Start of care: 24-48 hrs after discharge. [...] this patient's PCP: Asia Gil, DO [address] [facility] [place] [address] All VNA agencies which cover the area of patient's residence have been reviewed, either verbally margarita writing, and patient/family have chosen the home health care agency noted. Questions: Agency name and contact information: [facility] Patient location post discharge: Home What services are requested: Registered Nurse Physical Therapy Occupational Therapy Social Work Home Health Aide Start date: Responsible MD post discharge contact info: PCP Discharge References/Attachments: Discharge References/Attachments None Inpatient Provider Contact Information: [facility] Medicine Purple Team, pager [phone] Electronically Signed By: Ghazala Bragg MD 02/13/2021 [...] your PCP office 03/20/[address] Cruz [facility] cardiology Heart Failure (HF) Action plan Your [...] spent <30 minutes (Day of Discharge Code 42760) involved in the final examination of the patient, discussion of the hospital stay, instructions for continuing care to all relevant caregivers, and preparation of discharge records, prescriptions and referral forms. Plans ? Discharge to home ? Activity: as tolerated ? Diet: low salt; fluid restriction ? Follow-up scheduled Asia Gil, 1 week ? Please see the Discharge Summary for complete details of any medication changes and additional plans. Jonelle Redman MD * Cindy Cervantes, RN - 02/13/2021 12:40 PM EDT Pt [...] Will continue to follow. ONIEL Jane Pager [phone] * Zohra Weaver RN - 02/13/2021 11:20 AM EDT CARE MANAGEMENT FINAL DISCHARGE NOTE Chart reviewed, care reviewed with primary team and at interdisciplinary rounds. Patient is medically ready for discharge 02/13/21. Needs for Transition of Care Plan for discharge is: Home with VNA. Agency Referrals: 1) [facility]. PHONE: [phone] FAX: [phone] Transportation: Playground Director spoke with daughter Linda X 2 this morning to discuss discharge planning on behalf of Toyin.Linda expresses concerns regarding discharge planning. MD to speak with patient and daughter Linda to discuss discharge planning. RS at [facility] for LTC Medicaid made aware and to follow up with patient/family. Per daughter, patient has walker at home to use. PT/OT, patient to home with assist. Linda pl ans to stay with daughter and assist as needed. Plan for son in law to pecan picker patient at [place] [facility] at approximately noon. MD and RN aware of discharge plan. DME Needed at DC: None. Patient has walker to use at home. Patient is insured through: Primary Insurance: [employer] [place] Pay[place] / Plan[place] / Product Type: *No Product type* / Secondary Insurance: [facility] MANAGED MEDICARE Prescription Coverage: See above Preferred Pharmacy: See below [facility] [address] [place], [place] - [address] [facility] [address] [facility] [address] [id number] - [place], [place] - [address] [facility] AT SEC OF [facility] [address] [facility] [address] This plan was formulated with input from patient,Toyin Lion, and team. All are in agreement withplan. Due to current public health concerns, I have verbally reviewed Medicare Discharge Rights with patient. Patient verbalizes understanding of right to appeal this discharge if feeling not medically ready. Offered a copy of this letter, patient declined Zohra Weaver RN Case Chemical Mixer of Care Management Pager: [phone] * Shayy Ashley RN - 02/13/2021 5:02 [...] [X] N/A ? Cardiac/Telemetry Nursing Progress Note [id number] ?? Subjective: no reported cardiac s/s q [...] [X] N/A ? Cardiac/Telemetry Nursing Progress Note [id number] ?? Subjective: no reported cardiac s/s q [...] seen. ?? Plan: Continue telemetry monitoring. Notify MD of any changes. ?? Revision History * Chris Patiño, TRAIN SYSTEM OPERATOR - 02/12/2021 4:02 PM EDT Chart reviewed. Discussed patients daily goals, and plan for potential discharge during IDR. Received VM from Poly Boss CM ([phone]) informing me that she may be able to identify a Community Nurse for the patient to ensure a continuity of care at discharge. Plan: Returned call to Poly. Left VM. Waiting for return call. Will continue to monitor. Following for TRAIN SYSTEM OPERATOR support, including coping through illness process and resource needs, through disposition. Chris Patiño TRAIN SYSTEM OPERATOR Pager #[phone] Extension [phone] * Ghazala Bragg MD - 02/12/2021 7:00 [...] who have questions please contact the health transition of care specialist that requested your imaging first. Cardiac Catheterization Final Result CARDIAC CATH CASE [...] of two midnights or is on the [facility] inpatient only procedure list (status C) due to: monitoring of fluid status given an inability to regulate fluid balance and the need for administrationor restriction of fluids Jonelle Redman MD * Senser, Tutu Cleary MD - 02/11/2021 6:27 PM EDT Cardiology Consult Note Date of Consultation: 02/11/2021 Admit Date: 02/04/2021 Hospital Day 7 days Reason for Consult: DCHF, new dx of 3V CAD Active Problems: Active Hospital Problems Diagnosis ??? Acute exacerbation of congestive heart failure ??? HFrEF (heart failure with reduced ejection fraction) ??? ASCVD (arteriosclerotic cardiovascular disease) Added automatically from request for surgery [id number] ??? Pancreatic pseudocyst Resolved Hospital Problems Diagnosis [...] Date Admission (Current) from 02/04/2021 in 1 [facility] ED to Hosp-Admission (Discharged) from 01/28/2021 in 1 [facility] Weight 83.7 kg (184 lb 8 oz) 1 02/11/2021 0512 91.9 kg (202 lb 8 oz) 1 01/29/2021 1641 BMI 36.63 1 02/04/2021 2115 35.87 1 01/29/2021 164 General: Obese NAD HEENT: Face symetric Heart: [...] multivessel PCI. She did not present with MA and all her disease appears chronic and [...] Dr. Scruggs cardiology attending. Tutu Mendoza MD Teacher Of The Emotionally Disturbed Associated attestation - Darren Scruggs MD - [...] Frequency (PT): Monitor Time IN / OUT: 2820-2231 Total Minutes, Physical Therapy: 10(TEFx1). Glenys Belcher PT DPT 02/11/2021 Pager: [phone] Physical Therapy Inpatient Rehabilitation Department * Mayte [...] ERCP performed by Eliel Leigh MD at [facility] ? Social History: Patient lives alone in [place], [place]. She reports one of her daughters lives in [place]. 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 [...] times/wk Total Minutes, Occupational Therapy: 33(Schmx2) Pager: [phone] ONIEL Jane Occupational Therapy Rehabilitation Department * [...] consulted in the interim. JAZMIN Edmondson Pager: [phone] * Chris Patiño MSW - 02/11/2021 1:27 PM EDT Chart reviewed. Discussed patients daily goals, and plan for potential discharge during IDR. Contacted [facility] ([facility]) in an attempt to connect patient to services to ensure a continuity of care at discharge. [facility] doesn't serve [facility]. Contacted [facility] Department to identify the Community Nurse. Waiting on a return call. Will continue to monitor. Plan: Continue working on identifying a Community Nurse to ensure a continuity of care at discharge. Following for TRAIN SYSTEM OPERATOR support, including coping through illness process and resource needs, through disposition. Chris Patiño TRAIN SYSTEM OPERATOR Pager #[phone] Extension [phone] * Ghazala Bragg MD - 02/11/2021 6:43 [...] who have questions please contact the health transition of care specialist that requested your imaging first. Cardiac Catheterization Final Result CARDIAC CATH CASE [...] Date Admission (Current) from 02/04/2021 in 1 [facility] ED to Hosp-Admission (Discharged) from 01/28/2021 in 1 [facility] Weight 85.2 kg (187 lb 12.8 oz) 1 02/10/2021 0317 91.9 kg (202 lb 8 oz) 1 01/29/2021 164 BMI 36.63 1 02/04/2021 2115 35.87 1 01/29/20211640 General: Obese NAD HEENT: Face symetric Heart: [...] 283 248 Recent Labs 02/10/21 0338 02/09/21 1127 02/09/21 0355 NA 132* 131* 135 K Not Perf 3.9 4.0 CL 91* 92* 94* CO2 32* 30 31 BUN 19* 19* 20* CREATININE 0.99 1.09 1.07 Recent Labs 02/08/21 0405 02/04/21 2200 AST 47* 34* ALT 23 26 ALKPHOS 313* 222* BILITOT 0.4 0.6 BILIDIR 0.2 -- Recent Labs 02/10/21 0338 02/09/21 1127 02/09/21 0355 CALCIUM 7.9* 7.8* 8.0* MAGNESIUM 0.85 0.87 0.67* Recent Labs 02/04/21 2200 INR 1.2 PT [...] multivessel PCI. She did not present with MA and all her disease appears chronic and [...] Dr. White cardiology attending. Tutu Mendoza MD Teacher Of The Emotionally Disturbed Cardiology Attending Note I interviewed and examined the patient during comprehensive bedside rounds with the consult team. Iconcur with the summary of interval events, active hospital- focused problem list and plan of care as described in the note below. I personally reviewed the medications, laboratory results, treatment decisions and updated the patient. Art White MD, FACP, FACC Section of Cardiovascular Medicine [facility] Electrical Prospecting Observerflight test shop mechanic [facility] * Ghazala Bragg MD - 02/10/2021 6:55 [...] who have questions please contact the health transition of care specialist that requested your imaging first. Cardiac Catheterization Final Result CARDIAC CATH CASE [...] of two midnights or is on the [facility] inpatient only procedure list (status C) due [...] who have questions please contact the health transition of care specialist that requested your imaging first. Cardiac Catheterization Final Result CARDIAC CATH CASE [...] of two midnights or is on the [facility] inpatient only procedure list (status C) due [...] 4.1 3.7 CL 93* 95* 96* CO2 BUN 24* 24* 24* CREATININE 1.19 1.30* [...] apical kinesis demonstrated on Echo. Plan for engineering lab technician this afternoon. Per Gen surg, cardiac [...] WMAs, unclear chronicity - troponin flat at .2019 Echo requested - Cards consult if WMAs [...] of two midnights or is on the [facility] inpatient only procedure list (status C) due [...] reduced ejection fraction) Travis Callahan MD 02/08/2021 3:18 PM * Radha Casas RN - 02/06/2021 10:23 PM EDT [facility] She was transferred to [address] [place] [address] at about 2150. * Glenys Belcher, PT [...] ERCP performed by Eliel Leigh MD at [facility] Social History: Home setup: [...] one brief (<30sec) standing rest break approx nursing home through trial. Vital signs stable throughout. ??? [...] in this evaluation. Time IN / OUT: 0298-2765 Total Minutes, Physical Therapy: 18(eval). Glenys Belcher, PT DPT 02/06/2021 Pager: [phone] Physical Therapy Inpatient Rehabilitation Department * Jenny [...] encounter: 93.8 kg (206 lb 12.7 oz). [place] Body Weight: 52.2 kg Usual Body Weight: [...] identified but at risk given recent hospitalizations (Elvai JPEN J Parenteral Enteral Nutr. 2011; 36(3): 273-83) Nutrition to continue to follow up while inpatient [address] Pager #:[phone] * Alison Hess RN - 02/06/2021 10:12 AM EDT Pt would like to reestablish services with: [facility]. PHONE: [phone] FAX: [phone] Alison Hess RN [facility] Phone [phone] Pager [phone] * Farnaz Gayle OT - 02/06/2021 8:52 AM EDT Occupational Therapy Evaluation Patient profile: Toyin Lion is a 65 y.o. 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 History of Present Illness: Toyin was initially admitted 01/17-01/27 with post-ERCP [...] ERCP performed by Eliel Leigh MD at [facility] Social History: Patient lives alone in [place], [place]. She reports one of her daughters lives in [place]. 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 [...] precaution Vision & Perception: ?? corrective lenses manager multimedia Communication: WFL Range of motion, strength, coordination: [...] (increased edema, hip weakness); discussed potential for senior application programmer/sockaid; UB dressing: seated w/ setup and EOB [...] planning. Total Minutes, Occupational Therapy: 23(initial evaluation) 2016 OT Evaluation Code Rationale: ?? Diagnosis & [...] and measurable assessment of functional outcome. Pager: [phone] FARNAZ GAYLE OT 02/06/2021 Occupational Therapy Rehabilitation [...] wbc, hgb, hct plt Recent Labs 02/06/21 0155 02/05/21 0610 02/04/21 2200 WBC 14.4* 19.3* 17.8* HGB 9.2* 10.3* 9.9* HCT 27.2* 30.6* 30.6* PLATELET 232 279 246 Last 3 Lytes Recent Labs 02/06/21 0155 02/05/21 1510 02/05/21 0610 NA 134* 133* 135 K 3.7 3.6 4.0 CL 96* 94* 99 CO2 27 26 25 BUN 24* 23* 23* CREATININE 1.27* 1.28* 1.21* Last Ca, Mg, Phos Recent Labs 02/06/21 0155 CALCIUM 8.0* MAGNESIUM 0.68* Last 3 ProBNP, [...] we have requested the 2019 echo from [facility]. Will consult Cardiology if these are new. [...] of two midnights or is on the [facility] inpatient only procedure list (status C) due [...] Yamileth Townsend MSW - 02/06/2021 7:48 AM EDTSumveray: FRANCE Consult Office of Care Management Social Work Note Patient: Toyin Lion TRAIN SYSTEM OPERATOR Consult: Patient has partially completed advanced directive and would like help completing the rest. Thanks! Relevant Information: TRAIN SYSTEM OPERATOR spoke with patient regarding partially completed AD at home. Patient is going to inquire with daughters to see if one of them can obtain the original and bring to hospital for completion with assistance of TRAIN SYSTEM OPERATOR. Patient prefers not to start process over again, understandably. TRAIN SYSTEM OPERATOR left name and contact information on white board in room. Plan: TRAIN SYSTEM OPERATOR will continue to follow as needs are identified. FRANCE Ramos Pager: [phone] Desk: [phone] * Jazzy Contreras RN - 02/05/2021 5:39 [...] PLAN MOVING FORWARD: Q6h troponins. Transfer to [facility] when bed available. * Aaron Barry MD - 02/04/2021 11:52 PM EDT Brief Note Patient accepted during the day for respiratory failure from [facility] however on arrival the patient has no [...] She was discharged yesterday. She returned to [facility] overnight for hypoxemic respiratory failure. She has been in the hospital most of January for gallstone pancreatitis. Since her initial admission she has gained almost 40 pounds. She has an EF of 35 to 40%. On present patient to [facility] there was concern for pulmonary edema on [...] additional concern for infected fluid collection at [facility]. She had a known fluid collection and [...] Inpatient Attending: Brittny Woods MD PCP: Asia Gil DO Presenting Diagnosis/Chief Complaint: Shortness of breath History [...] of breath prompted her to present to [facility] where she was found to be tachypneic and sating in the 70s on room air with heart rates in the 150s. Labs were significant for a WBC of 32, initial troponin negative subsequent troponin 0.2, proBNP of >00349. RUQ ultrasound - large complex fluid collection [...] was started on BiPAP. On arrival at [facility] she is hemodynamically stable and sating well [...] ERCP performed by Eliel Leigh MD at [facility] Social History: Social History [...] Gatherings with Friends and Family: ??? Attends Tenriism Services: ??? Active Member of Clubs or [...] Warm, dry, no rashes LABS: Recent Labs 02/04/21219902/03/2124402/02/21225 WBC 17.8* 15.3* 14.4* HGB 9.9* 7.9* 7.6* HCT 30.6* 25.2* 23.5* PLATELET 246 207 185 Recent Labs 02/04/21219902/03/2124402/02/21225 NA 137 132* 134* K 4.2 4.6 4.6 CL 101 100 102 CO2 26 25 24 BUN 24* 26* 30* CREATININE 1.29* 1.24* 1.18 Recent Labs 02/04/21219902/03/2124402/02/21225 CALCIUM 8.4* 8.4* 8.1* Recent Labs 02/04/212199 PT 13.6* PTT 29 Recent Labs 02/04/212199 INR 1.2 Recent Labs 02/04/21219902/03/215 02/02/21 0226 AST 34* 52* 52* ALT 26 34* 33* ALKPHOS 222* 235* 223* BILITOT 0.6 0.6 0.6 Recent Labs 02/04/21 2200 TROPONINT 0.03* No results for input(s): LDH, [...] floor - Vitals: q4h Bibiana Yarbrough MD [facility] Internal Medicine PGY-3 Associated attestation - Travis [...] of two midnights or is on the [facility] inpatient only procedure list (status C) due [...] A/P 65 year old woman, history of ISMMONS cirrhosis, HTN, DM, prior TIA, recent admission [...] monitoring]: Routine rounding, call cunningham within reach, [facility], room near nurses station, vital signs per order Patient-specific fall prevention interventions for sensory deficits provided, if applicable: [X] N/A Cardiac/Telemetry Nursing Progress Note 3603-5938 Subjective: no reported cardiac s/s q shift [...] in low position. Pt c/o LAZO rated 05/20- PRN Oxycodone administered w/ positive effect. Pt [...] maintained; will continue to monitor. Care per MD/MARIETTA orders, purposeful rounding in place. MD to [...] NSR Heart rate range 75 - 110. MT interval 0.20; QRS 0.08 to 0.10, QT [...] Eyes on Surveillance [continuous indirect monitoring]: Purposeful roundingBreanna FS QID Patient-specific fall prevention interventions for [...] maintained; will continue to monitor. Care per MD/MARIETTA orders, purposeful rounding in place. MD to [...] maintained, will continue to monitor. Care per MD/MARIETTA orders, purposeful rounding in place. MD to [...] or tingling. Scheduled IV lasix given (see DEC). Safety maintained, WCTM. PLAN MOVING FORWARD: Diuresis. [...] A&O x4, VSS on RA Pt c/o 6/10 pain, scheduled gabapentin administered to good effect IV lasix x2, IV Mag and PO K administered Pt to engineering lab technician for exploratory procedure this afternoon When [...] reach * Plan of Care - Brittny Lakhain MD - 02/07/2021 5:32 PM EDT Cardiology [...] from the original note were not included. [facility] [place] [address] [address] CORONARY ANGIOGRAM AND PERCUTANEOUS CORONARY INTERVENTION REPORT Patient: Toyin Lion : 1955 MR number: [id number] Date of Service: 02/07/2021 Intervention Specialist: Antonio Cruz MD Fellow: Juanis Hooker MD and Kaitlin Mabry MD INDICATION: Toyin [...] obtained. The patient was brought to the engineering lab technician and placed onthe table. Time out [...] no procedural complications. ??? I provided direct blve-it-wwfo monitoring of conscious sedation which was administered [...] on table if needed. -No contraindications to termination clerk DAPT. -Plan for access via R radial. -Patient being diuresed now but can lay flat. Brittny Lakhani MD 02/07/2021 Pager [phone] * Plan of Care - Brittny Hallman [...] from the original note were not included. [facility] Department of Cardiology Initial Consult Note CARDIOLOGY CONSULT NOTE Patient: Toyin Lion Primary Care: Asia Gil DO : [...] ERCP performed by Eliel Leigh MD at [facility] MEDICATIONS AND ALLERGIES Scheduled [...] Never Used ??? Tobacco comment: uses medical Familiar Substance Use Topics ??? Alcohol use: Not [...] Labs: Recent Labs 02/06/21 0155 02/05/21 0610 02/04/21 2200 WBC 14.4* 19.3* 17.8* [...] BILITOT 0.6 0.6 0.6 Recent Labs 02/04/21 2200 INR 1.2 PT 13.6* PTT 29 Imaging [...] Lakhani, PGY5 Cardiovascular Disease Fellow Personal Pager #[phone] CARDIOLOGY STAFF NOTE I have personally interviewed [...] heparin at this time Kingsley Gilmore MD, [facility], [facility] Staff Clay Thrower specification manager and Medical Education pager [phone] * Plan of Care - Naya Sarmiento RN - 02/06/2021 5:34 AM EDT OUTCOME EVALUATION NOTE: OUTCOME SUMMARY: No acute events overnnight. Given PRN oxy x1 for pain in bilateral feet, patient states related to edema and tightness PLAN MOVING FORWARD: Transfer Pull [place] INDIVIDUALIZED FALL PREVENTION INTERVENTIONS: Patient-specific fall risk [...] and Sadie would be surrogate decision makerper [place] surrogate decision making law. (Only good for 90 days) Any patient receiving care at [facility] must abide by [place] law. The hierarchy for surrogate decision making [...] enter, her bath/bed on first floor. [address] [facility] [id number] Social & Family Supports/Community Resources: Extended Emergency Contact Information Primary Emergency Contact: [place] [address] [facility] Mobile Relation: Child Secondary Emergency Contact: [place] [address] [facility] Mobile Relation: Child Behavioral Health History: none noted Substance Use/Abuse: Tobacco hx: none noted ETOH hx: none noted Illicit drug use hx: medical marijuana daily Other Pertinent/Service Specific Information: n/a Health/Prescription Coverage: Primary Insurance: [place] [place] Pay[place] / Plan[place] / Product Type: *No Product type* / Secondary Insurance: [facility] MANAGED MEDICARE Prescription Coverage: Yes Preferred Pharmacy: [facility] [address] [place] [id number] Other: n/a Primary Care Provider: Asia Gil DO [phone] Patient/Caregiver Goals of Treatment: to get home Potential Needs for Transition of Care: Rehab/SNF: n/a Home Health: [facility] DME: cane, walker, shower chair, grab bars Dialysis: n/a Community Resources: n/a Transportation: n/a Other: n/a Anticipated Barriers to Discharge/Special Considerations: none anticipated Assessment: Ms. Lion is a 65 y/o mother of two who is admitted to [facility] as a transfer from [facility] for higher level of care d/t pancreatitis post ERCP. Patient has had multiple admissions to hospital in January (this is third admission). Patient expects to return home, independent when medically cleared. Her son in law will provide transportation. Plan: Following for TRAIN SYSTEM OPERATOR and care management support through disposition. A member of the Care Management team will continue to monitor progress, follow for continuity of care and assist with transition of care planning. TRAIN SYSTEM OPERATOR will continue to follow as needs are identified. Yamileth Townsend MSW Pager: [phone] Desk: [phone] * Plan of Care - Dionicio Roberts, RN - 02/05/2021 9:43 AM EDTSummary: Nursing Care Plan OUTCOME EVALUATION NOTE: OUTCOME SUMMARY: Admit for fluid overload. Patient negative fluid balance. Currently on RA. Denies SOB. PLAN MOVING FORWARD: Continue diuresis as ordered. Followed by GI for abscess. No drain at this time. IC38/[id number] Toyin Lion [id number] 65 y.o. female Admitted: 02/04/2021 HD: 1 [...] arrival for hgb of 7. Admitted to [facility] at 02/04. BCX2, UA/UC, COVID swab sent. [...] AM- no further action. Watch and wait. :Suh. Was on lasic gtt at OSH. Lasix BID Heme/ID: SubQ heparin Skin: Bruise LUQ abd. Intact. Social: Two daughters- one in [place] and one in [place]. Only has some of her advanced directive complete. Would like to speak w/ care mgmt to finish. Consult placed. Action List Serial Labs: AM labs. QID finger sticks. Situational Awareness & Contingency Planning Synthesis Transfer to [facility] when bed available. Access: Peripheral IV Line - Single Lumen 02/04/212126 median cubital vein (antecubital fossa), left 18 gauge (Active) Peripheral IV Line - Single Lumen 02/04/21 2240 median cubital vein (antecubital fossa), right 22 [...] be discharged on 01/27. She returned to [facility] on 01/29 volume overloaded (15 lbs over dry weight) with persistent abdominal pain and distension. She was transferred back to [facility]. She had a worsening leukocyt osis (WBC [...] then discharged on 02/03. She re-represented to [facility] yesterday (02/04) w/ fluid overload, DAVIS. Her [...] empiric cefepime / Zosyn and transferred to [facility] for further care. Here, patient has remained afebrile,HR 90s, BP 130/70s. O2 req quickly weaned to 1L NC and admitted to [facility]. Labs notable for WBC 18, INR 1.2, [...] ERCP performed by Eliel Leigh MD at [facility] PAST SOCIAL HX: Social [...] Gatherings with Friends and Family: ??? Attends Tenriism Services: ??? Active Member of Clubs or [...] Resp: [10-19] SpO2 SpO2: [95 %-100 %] IO 02/04 0701 - 02/05 0700 In: 650 [...] jaundice Labs: CBC: Recent Labs 02/05/21 0610 02/04/21 2200 02/03/21 0245 02/02/21 0226 02/01/21 0615 01/31/21 0620 01/30/21 0822 01/29/21 1245 WBC 19.3* 17.8* 15.3* 14.4* 18.7* [...] reviewed in eD ERCP (01/17/21): Findings: ?A hydrographical technical officer film of the abdomen was obtained. Surgical [...] as documented. Julio Cesar Nj MD, MS flight test shop mechanic Animal Services Officer, Gastroenterology and Hepatology documented in this encounter Plan of Treatment Upcoming Encounters Date Type Department Care Team (Latest Contact Info) Description 05/08/2024 10:30 AM EDT Hospital En[place] [address] Bk Contreras MD [facility] [place] [address] 05/08/2024 10:30 AM EDT - 05/08/2024 11:00 AM EDT [place] [address] Bk Contreras MD [facility] [place] [address] INJECTION, ANESTHETIC AGENT AND/OR STEROID, TRANSFORAMINAL EPIDURAL, LUMBAR OR SACRAL, SINGLE LEVEL (WRVU 1.9) 05/12/2024 1:00 PM EDT Office Visit Cardiology at [address] [phone] Sadi Styles MD [facility] [place] [place] [address] 05/29/2024 10:15 AM EDT TH Visit (TeleHealth) Pain and Spine Center at [facility], [place] [address] Natalee Sanchez APRN [facility] [place] [address] Scheduled Procedures Name Priority Associated Diagnoses Date/Ti [...] 11: 50 PM EDT RAPID COVID-19 PCR (MH/APD/NLH) Routine 02/04/2021 10:28 PM EDT HC URINALYSIS [...] * POCT Glucose (02/13/2021 11:54 AM EDT) POC Glucose 161 65 - 199 mg/dL [facility] Comment: Supplemental ranges: <140 mg/dL before meals <180 mg/dL all other times of the day Blood specimen (specimen) 02/13/2021 11:54 AM EDT 02/13/2021 11:54 AM EDT Jonelle Redman MD POINT OF CARE TEST O RDERABLES Performing Organization Address [facility] Co de Phone Number [facility] [place] [address] * EKG 12 Lead (02/13/2021 10:01 AM EDT) Ventricular rate 73 BPM MUSE SYSTEM Atrial Rate 73 BPM MUSE SYSTEM P-R Interval 228 ms MUSE SYSTEM QRS Duration 84 ms MUSE SYSTEM Q-T Interval 406 ms MUSE SYSTEM QTC Calculated (Bezet) 447 ms MUSE SYSTEM Calculated P Underwood 34 degrees MUSE SYSTEM Calculated R Underwood 56 degrees MUSE SYSTEM Calculated T Underwood 168 degrees MUSE SYSTEM INTERPRETATION Sinus rhythm with 1st degree A-V block Anterior infarct (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) T wave abnormality, consider lateral ischemia Abnormal ECG When compared with ECG of 08-FEB-2021 06:04, QT has shortened Confirmed by MD Christopher, Atr Starr ([id number]) on 02/13/2021 2:52:50 PM MUSE SYSTEM 02/13/2021 10:0 1 AM EDT 02/13/2021 2:52 PM EDT Jonelle Redman MD ECG ORDERABLES MUSE SYSTEM * POCT Glucose (02/13/2021 6:36 AM EDT) POC Glucose 139 65 - 199 mg/dL [facility] Comment: Supplemental ranges: <140 mg/dL before meals <180 mg/dL all other times of the day Blood specimen (specimen) 02/13/2021 6:36 AM EDT 02/13/2021 6:36 AM EDT Jonelle Redman MD POINT OF CARE TEST O MAUREEN [facility] [place] [address] * (ABNORMAL) Differential, Automated (02/13/2021 4:45 AM EDT) Pathologist [facility] Neutrophils % 69.6 % [facility] Neutr Abs (ANC) 8.08(H) 1.70 - 6.10 x10(3)/mc L [facility] Lymphocytes % 17.9 % [facility] Lymphocytes Abs 2.1 0.9 - 3.2 x10(3)/ L [facility] Monocytes % 9.5 % [facility] Monocyte Abs 1.1(H) 0.3 - 0.9 x10(3)/ L [facility] Eosinophils % 1.5 % [facility] Eosinophils Abs 0.2 0.0 - 0.4 x10(3)/ L [facility] Basophils % 0.4 % [facility] Basophils Abs 0.0 0.0 - 0.1 x10(3)/ L [facility] Immature Gran % 1.10 % [facility] Comment: Immature granulocytes(IG's)percentage and absolute count will include metamyelocytes, myelocytes, and promyelocytes. Blood smears from CBCs yielding IG's will be scanned manually for concordance. If this scan disagrees with the automated IG or if promyelocytes are noted, a manual differential will be performed. Anya Gran Abs 0.13(H) 0.00 - 0.04 x10(3)/ L [facility] Blood specimen (specimen) 02/13/2021 4:45 AM EDT 02/13/2021 5:23 AM EDT Narrative Resulting Agency Comment Spec In Lab Bibiana Yarbrough MD HEMATOLOGY ORDERABLE S [facility] [place] [address] * (ABNORMAL) Hemogram (02/13/2021 4:45 AM EDT) WBC 11.6(H) 4.0 - 9.5 x10(3)/[facility] RBC 2.46(L) 4.00 - 5.21 x10(6)/[facility] Hemoglobin 7.3(L) 11.7 - 15.5 gm/dL [facility] Hematocrit 22.8(L) 35.7 - 45.8 % [facility] MCV 92.7 82.6 - 94.4 [facility] MCH 29.7 27.1 - 32.0 pg [facility] MCHC 32.0 31.7 - 35.0 gm/dL [facility] Platelets 288 145 - 357 x10(3)/[facility] RDWSD 46.9(H) 37.0 - 46.0 [facility] RDWCV 13.9 11.5 - 14.1 % [facility] MPV 11.3 7.6 - 12.9 [facility] nRBC % Auto 0.0 % [facility] nRBC Abs Auto 0.000 0.000 - 0.000 x10(3)/[facility] Blood specimen (specimen) 02/13/2021 4:45 AM EDT 02/13/2021 5:23 AM EDT Narrative Resulting Agency Comment Spec In Lab Bibiana Yarbrough MD HEMATOLOGY ORDERABLE S Performing Organization Address [facility]/ZIP Co de Phone Number [facility] [place] [address] * Magnesium (02/13/2021 4:45 AM EDT) Magnesium 0.78 0.69 - 1.07 mmol/L [facility] Blood specimen (specimen) 02/13/2021 4:45 AM EDT 02/13/2021 5:23 AM EDT Narrative Resulting Agency Comment Spec In Lab Brittny Woods MD CHEMISTRY ORDERABLES Performing Organization Address [facility] Co de Phone Number [facility] [place] [address] * (ABNORMAL) BMP w/fasting Glucose (02/13/2021 4:45 AM EDT) Glucose Fasting 136(H) 65 - 99 mg/dL [facility] Comment: ?Fasting* Glucose Interpretive Criteria [...] of Diabetes Mellitus, Position Statement from the [place] [employer]. ??Diabetes Care, Volume 33, Supplement 1, Oct 2009 BUN 22(H) 8 - 18 mg/dL [facility] Creatinine 1.10 0.70 - 1.20 mg/dL [facility] Sodium 131(L) 135 - 145 mmol/L [facility] Potassium 4.0 3.5 - 5.0 mmol/L [facility] Comment: Please note: ??Patients with WBC >100,000 may have falsely elevated Potassium levels. ??For accurate Potassium quantification in these patients send serum separator tube (gold top) for subsequent determinations. ??Contact the Clinical Chemistry Laboratory if there are any questions. Chloride 91(L) 98 - 107 mmol/L [facility] CO2 35(H) 22 - 31 mmol/L [facility] Anion Gap 5 5 - 15 mmol/L [facility] Calcium 7.9(L) 8.5 - 10.5 mg/dL [facility] Estimated GFR 52(L) >=60 mL/min/1. 73 m?? [facility] Comment: This patient? s estimated [...] In Lab Brittny Woods MD CHEMISTRY ORDERABLES [facility] [place] [address] * POCT Glucose (02/12/2021 9:35 PM EDT) POC Glucose 181 65 - 199 mg/dL [facility] Comment: Supplemental ranges: <140 mg/dL before meals <180 mg/dL all other times of the day Blood specimen (specimen) 02/12/2021 9:35 PM EDT 02/12/2021 9:35 PM EDT Jonelle Redman MD POINT OF CARE TEST O RDWILLIAM Performing Organization Address [facility] Co de Phone Number [facility] [place] [address] * POCT Glucose (02/12/2021 4:26 PM EDT) POC Glucose 135 65 - 199 mg/dL [facility] Comment: Supplemental ranges: <140 mg/dL before meals <180 mg/dL all other times of the day Blood specimen (specimen) 02/12/2021 4:26 PM EDT 02/12/2021 4:26 PM EDT Jonelle Redman MD POINT OF CARE TEST O MAUREEN Performing Organization Address [facility] Co de Phone Number [facility] [place] [address] * POCT Glucose (02/12/2021 11:35 AM EDT) POC Glucose 167 65 - 199 mg/dL [facility] Comment: Supplemental ranges: <140 mg/dL before meals <180 mg/dL all other times of the day Blood specimen (specimen) 02/12/2021 11:35 AM EDT 02/12/2021 11:35 AM EDT Jonelle Redman MD POINT OF CARE TEST O MAUREEN Performing Organization Address [facility] Co de Phone Number [facility] [place] [address] * POCT Glucose (02/12/2021 6:53 AM EDT) POC Glucose 123 65 - 199 mg/dL [facility] Comment: Supplemental ranges: <140 mg/dL before meals <180 mg/dL all other times of the day Blood specimen (specimen) 02/12/2021 6:53 AM EDT 02/12/2021 6:53 AM EDT Jonelle Redman MD POINT OF CARE TEST O RDERABLES [facility] [place] [address] * (ABNORMAL) Differential, Automated (02/12/2021 5:59 AM EDT) Neutrophils % 70.1 % [facility] Neutr Abs (ANC) 7.69(H) 1.70 - 6.10 x10(3)/ L [facility] Lymphocytes % 18.1 % [facility] Lymphocytes Abs 2.0 0.9 - 3.2 x10(3)/[facility] Monocytes % 9.1 % [facility] Monocyte Abs 1.0(H) 0.3 - 0.9 x10(3)/[facility] Eosinophils % 1.4 % [facility] Eosinophils Abs 0.2 0.0 - 0.4 x10(3)/[facility] Basophils % 0.3 % [facility] Basophils Abs 0.0 0.0 - 0.1 x10(3)/[facility] Immature Gran % 1.00 % [facility] Comment: Immature granulocytes(IG's)percentage and absolute count will include metamyelocytes, myelocytes, and promyelocytes. Blood smears from CBCs yielding IG's will be scanned manually for concordance. If this scan disagrees with the automated IG or if promyelocytes are noted, a manual differential will be performed. Anya Gran Abs 0.11(H) 0.00 - 0.04 x10(3)/[facility] Blood specimen (specimen) 02/12/2021 5:59 AM EDT 02/12/2021 6:07 AM EDT Narrative Resulting Agency Comment Spec In Lab Bibiana Yarbrough MD HEMATOLOGY ORDERABLE S [facility] [place] [address] * (ABNORMAL) Hemogram (02/12/2021 5:59 AM EDT) Pathologist [facility] WBC 11.0(H) 4.0 - 9.5 x10(3)/[facility] RBC 2.49(L) 4.00 - 5.21 x10(6)/[facility] Hemoglobin 7.4(L) 11.7 - 15.5 gm/dL [facility] Hematocrit 23.3(L) 35.7 - 45.8 % [facility] MCV 93.6 82.6 - 94.4 [facility] MCH 29.7 27.1 - 32.0 pg [facility] MCHC 31.8 31.7 - 35.0 gm/dL [facility] Platelets 271 145 - 357 x10(3)/[facility] RDWSD 46.3(H) 37.0 - 46.0 [facility] RDWCV 13.8 11.5 - 14.1 % [facility] MPV 11.4 7.6 - 12.9 [facility] nRBC % Auto 0.0 % [facility] nRBC Abs Auto 0.000 0.000 - 0.000 x10(3)/[facility] Blood specimen (specimen) 02/12/2021 5:59 AM EDT 02/12/2021 6:07 AM EDT Narrative Resulting Agency Comment Spec In Lab Bibiana Yarbrough MD HEMATOLOGY ORDERABLE S [facility] [place] [address] * Magnesium (02/12/2021 5:59 AM EDT) Pathologist [facility] Magnesium 0.77 0.69 - 1.07 mmol/L [facility] Blood specimen (specimen) 02/12/2021 5:59 AM EDT 02/12/2021 6:07 AM EDT Narrative Resulting Agency Comment Spec In Lab Brittny Woods MD CHEMISTRY ORDERABLES [facility] [place] [address] * (ABNORMAL) BMP w/fasting Glucose (02/12/2021 5:59 AM EDT) Glucose Fasting 128(H) 65 - 99 mg/dL [facility] Comment: ?Fasting* Glucose Interpretive Criteria [...] of Diabetes Mellitus, Position Statement from the [place] [employer]. ??Diabetes Care, Volume 33, Supplement 1, Oct 2009 BUN 22(H) 8 - 18 mg/dL [facility] Creatinine 1.28(H) 0.70 - 1.20 mg/dL [facility] Sodium 134(L) 135 - 145 mmol/L [facility] Potassium 3.8 3.5 - 5.0 mmol/L [facility] Comment: Please note: ??Patients with WBC >100,000 may have falsely elevated Potassium levels. ??For accurate Potassium quantification in these patients send serum separator tube (gold top) for subsequent determinations. ??Contact the Clinical Chemistry Laboratory if there are any questions. Chloride 92(L) 98 - 107 mmol/L [facility] CO2 37(H) 22 - 31 mmol/L [facility] Anion Gap 5 5 - 15 mmol/L [facility] Calcium 8.0(L) 8.5 - 10.5 mg/dL [facility] Estimated GFR 43(L) >=60 mL/min/1. 73 m?? [facility] Comment: This patient? s estimated [...] Woods MD CHEMISTRY ORDERABLES Performing Organization Address City/[facility]/ZIP Co de Phone Number [facility] [place] [address] * POCT Glucose (02/11/2021 8:41 PM EDT) POC Glucose 147 65 - 199 mg/dL [facility] Comment: Supplemental ranges: <140 mg/dL before meals <180 mg/dL all other times of the day Blood specimen (specimen) 02/11/2021 8:41 PM EDT 02/11/2021 8:41 PM EDT Jonelle Redman MD POINT OF CARE TEST O RDERABLES [facility] [place] [address] * POCT Glucose (02/11/2021 4:06 PM EDT) POC Glucose 132 65 - 199 mg/dL [facility] Comment: Supplemental ranges: <140 mg/dL before meals <180 mg/dL all other times of the day Blood specimen (specimen) 02/11/2021 4:06 PM EDT 02/11/2021 4:06 PM EDT Jonelle Redman MD POINT OF CARE TEST O RDERABLES Performing Organization Address [facility] de Phone Number [facility] [place] [address] * Magnesium (02/11/2021 11:37 AM EDT) Magnesium 0.92 0.69 - 1.07 mmol/L [facility] Blood specimen (specimen) 02/11/2021 11:37 AM EDT 02/11/2021 11:58 AM EDT Narrative Resulting Agency Comment Spec In Lab Travis Callahan MD CHEMISTRY ORDERABLES Performing Organization Address [facility] de Phone Number [facility] [place] [address] * (ABNORMAL) BMP w/fasting Glucose (02/11/2021 11:37 AM EDT) Glucose Fasting 144(H) 65 - 99 mg/dL [facility] Comment: ?Fasting* Glucose Interpretive Criteria [...] of Diabetes Mellitus, Position Statement from the [place] [employer]. ??Diabetes Care, Volume 33, Supplement 1, Oct 2009 BUN 19(H) 8 - 18 mg/dL [facility] Creatinine 1.12 0.70 - 1.20 mg/dL [facility] Sodium 133(L) 135 - 145 mmol/L [facility] Potassium 3.7 3.5 - 5.0 mmol/L [facility] Comment: Please note: ??Patients with WBC >100,000 may have falsely elevated Potassium levels. ??For accurate Potassium quantification in these patients send serum separator tube (gold top) for subsequent determinations. ??Contact the Clinical Chemistry Laboratory if there are any questions. Chloride 90(L) 98 - 107 mmol/L [facility] CO2 36(H) 22 - 31 mmol/L [facility] Anion Gap 7 5 - 15 mmol/L [facility] Calcium 8.5 8.5 - 10.5 mg/dL [facility] Estimated GFR 51(L) >=60 mL/min/1. 73 m?? [facility] Comment: This patient? s estimated [...] In Lab Travis Callahan MD CHEMISTRY ORDERABLES [facility] [place] [address] * POCT Glucose (02/11/2021 11:09 AM EDT) POC Glucose 147 65 - 199 mg/dL [facility] Comment: Supplemental ranges: <140 mg/dL before meals <180 mg/dL all other times of the day Blood specimen (specimen) 02/11/2021 11:09 AM EDT 02/11/2021 11:09 AM EDT Jonelle Redman MD POINT OF CARE TEST O MAUREEN Performing Organization Address [facility]/ZIP Co de Phone Number [facility] [place] [address] * POCT Glucose (02/11/2021 6:44 AM EDT) POC Glucose 139 65 - 199 mg/dL [facility] Comment: Supplemental ranges: <140 mg/dL before meals <180 mg/dL all other times of the day Blood specimen (specimen) 02/11/2021 6:44 AM EDT 02/11/2021 6:44 AM EDT Jonelle Redman MD POINT OF CARE TEST O MAUREEN Performing Organization Address [facility]/ZIP Co de Phone Number [facility] [place] [address] * (ABNORMAL) Differential, Automated (02/11/2021 3:55 AM EDT) Neutrophils % 67.8 % [facility] Neutr Abs (ANC) 7.24(H) 1.70 - 6.10 x10(3)/mc L [facility] Lymphocytes % 21.4 % [facility] Lymphocytes Abs 2.3 0.9 - 3.2 x10(3)/mc L [facility] Monocytes % 8.1 % [facility] Monocyte Abs 0.9 0.3 - 0.9 x10(3)/mc L [facility] Eosinophils % 1.4 % [facility] Eosinophils Abs 0.2 0.0 - 0.4 x10(3)/mc L [facility] Basophils % 0.3 % [facility] Basophils Abs 0.0 0.0 - 0.1 x10(3)/[facility] Immature Gran % 1.00 % [facility] Comment: Immature granulocytes(IG's)percentage and absolute count will include metamyelocytes, myelocytes, and promyelocytes. Blood smears from CBCs yielding IG's will be scanned manually for concordance. If this scan disagrees with the automated IG or if promyelocytes are noted, a manual differential will be performed. Anya Gran Abs 0.11(H) 0.00 - 0.04 x10(3)/[facility] Blood specimen (specimen) 02/11/2021 3:55 AM EDT 02/11/2021 4:09 AM EDT Narrative Resulting Agency Comment Spec In Lab Bibiana Yarbrouhg MD HEMATOLOGY ORDERABLE S [facility] [place] [address] * (ABNORMAL) Hemogram (02/11/2021 3:55 AM EDT) WBC 10.7(H) 4.0 - 9.5 x10(3)/[facility] RBC 2.60(L) 4.00 - 5.21 x10(6)/[facility] Hemoglobin 7.6(L) 11.7 - 15.5 gm/dL [facility] Hematocrit 23.8(L) 35.7 - 45.8 % [facility] MCV 91.5 82.6 - 94.4 fL [facility] MCH 29.2 27.1 - 32.0 pg [facility] MCHC 31.9 31.7 - 35.0 gm/dL [facility] Platelets 273 145 - 357 x10(3)/[facility]ATORY RDWSD 46.4(H) 37.0 - 46.0 fL [facility] RDWCV 13.8 11.5 - 14.1 % [facility] MPV 11.5 7.6 - 12.9 fL [facility] nRBC % Auto 0.0 % [facility] nRBC Abs Auto 0.000 0.000 - 0.000 x10(3)/mcL [facility] Blood specimen (specimen) 02/11/2021 3:55 AM EDT 02/11/2021 4:09 AM EDT Narrative Resulting Agency Comment Spec In Lab Bibiana Yarbrough MD HEMATOLOGY ORDERABLE S Performing Organization Address [facility] Co de Phone Number [facility] [place] [address] * Magnesium (02/11/2021 3:55 AM EDT) Magnesium 0.69 0.69 - 1.07 mmol/L [facility] Blood specimen (specimen) 02/11/2021 3:55 AM EDT 02/11/2021 4:09 AM EDT Narrative Resulting Agency Comment Spec In Lab Brittny Woods MD CHEMISTRY ORDERABLES Performing Organization Address [facility] Co de Phone Number [facility] [place] [address] * (ABNORMAL) BMP w/fasting Glucose (02/11/2021 3:55 AM EDT) Glucose Fasting 123(H) 65 - 99 mg/dL [facility] Comment: ?Fasting* Glucose Interpretive Criteria [...] of Diabetes Mellitus, Position Statement from the [place] [employer]. ??Diabetes Care, Volume 33, Supplement 1, Oct 2009 BUN 19(H) 8 - 18 mg/dL [facility] Creatinine 1.01 0.70 - 1.20 mg/dL [facility] Sodium 134(L) 135 - 145 mmol/L [facility] Potassium 3.9 3.5 - 5.0 mmol/L [facility] Comment: Please note: ??Patients with WBC >100,000 may have falsely elevated Potassium levels. ??For accurate Potassium quantification in these patients send serum separator tube (gold top) for subsequent determinations. ??Contact the Clinical Chemistry Laboratory if there are any questions. Chloride 93(L) 98 - 107 mmol/L [facility] CO2 35(H) 22 - 31 mmol/L [facility] Anion Gap 6 5 - 15 mmol/L [facility] Calcium 7.8(L) 8.5 - 10.5 mg/dL [facility] Estimated GFR 58(L) >=60 mL/min/1. 73 m?? [facility] Comment: This patient? s estimated [...] In Lab Brittny Woods MD CHEMISTRY ORDERABLES [facility] [place] [address] * POCT Glucose (02/10/2021 8:44 PM EDT) POC Glucose 142 65 - 199 mg/dL [facility] Comment: Supplemental ranges: <140 mg/dL before meals <180 mg/dL all other times of the day Blood specimen (specimen) 02/10/2021 8:44 PM EDT 02/10/2021 8:44 PM EDT Jonelle Redman MD POINT OF CARE TEST O MAUREEN Performing Organization Address [facility] Co de Phone Number [facility] [place] [address] * POCT Glucose (02/10/2021 4:39 PM EDT) POC Glucose 165 65 - 199 mg/dL [facility] Comment: Supplemental ranges: <140 mg/dL before meals <180 mg/dL all other times of the day Blood specimen (specimen) 02/10/2021 4:39 PM EDT 02/10/2021 4:39 PM EDT Jonelle Redman MD POINT OF CARE TEST O MAUREEN Performing Organization Address [facility]/ZIP Co de Phone Number [facility] [place] [address] * (ABNORMAL) Basic Metabolic Panel (non-fasting) (02/10/2021 4:29 PM EDT) Glucose Lvl 157 65 - 199 mg/dL [facility] Comment:Diabetes: >=200 mg/d L plus symptoms BUN 19(H) 8 - 18 mg/dL [facility] Creatinine 1.13 0.70 - 1.20 mg/dL [facility] Sodium 133(L) 135 - 145 mmol/L [facility] Potassium 4.0 3.5 - 5.0 mmol/L [facility] Comment: Please note: ??Patients with WBC >100,000 may have falsely elevated Potassium levels. ??For accurate Potassium quantification in these patients send serum separator tube (gold top) for subsequent determinations. ??Contact the Clinical Chemistry Laboratory if there are any questions. Chloride 92(L) 98 - 107 mmol/L [facility] CO2 32(H) 22 - 31 mmol/L [facility] Anion Gap 9 5 - 15 mmol/L [facility] Calcium 7.8(L) 8.5 - 10.5 mg/dL [facility] Estimated GFR 50(L) >=60 mL/min/1. 73 m?? [facility] Comment: This patient? s estimated [...] In Lab Jonelle Redman MD CHEMISTRY ORDERABLES [facility] [place] [address] * Magnesium (02/10/2021 11:42 AM EDT) Magnesium 0.82 0.69 - 1.07 mmol/L [facility] Blood specimen (specimen) 02/10/2021 11:42 AM EDT 02/10/2021 11:48 AM EDT Narrative Resulting Agency Comment Spec In Lab Travis Callahan MD CHEMISTRY ORDERABLES [facility] [place] [address] * (ABNORMAL) BMP w/fasting Glucose (02/10/2021 11:42 AM EDT) Glucose Fasting 150(H) 65 - 99 mg/dL [facility] Comment: ?Fasting* Glucose Interpretive Criteria [...] of Diabetes Mellitus, Position Statement from the [place] [employer]. ??Diabetes Care, Volume 33, Supplement 1, Oct 2009 BUN 19(H) 8 - 18 mg/dL [facility] Creatinine 1.17 0.70 - 1.20 mg/dL [facility] Sodium 135 135 - 145 mmol/L [facility] Potassium 3.7 3.5 - 5.0 mmol/L [facility] Comment: Please note: ??Patients with WBC >100,000 may have falsely elevated Potassium levels. ??For accurate Potassium quantification in these patients send serum separator tube (gold top) for subsequent determinations. ??Contact the Clinical Chemistry Laboratory if there are any questions. Chloride 93(L) 98 - 107 mmol/L [facility] CO2 33(H) 22 - 31 mmol/L [facility] Anion Gap 9 5 - 15 mmol/L [facility] Calcium 8.1(L) 8.5 - 10.5 mg/dL [facility] Estimated GFR 48(L) >=60 mL/min/1. 73 m?? [facility] Comment: This patient? s estimated [...] Callahan MD CHEMISTRY ORDERABLES Performing Organization Address [facility]/ZIP Co de Phone Number [facility] [place] [address] * POCT Glucose (02/10/2021 11:20 AM EDT) POC Glucose 197 65 - 199 mg/dL [facility] Comment: Supplemental ranges: <140 mg/dL before meals <180 mg/dL all other times of the day Blood specimen (specimen) 02/10/2021 11:20 AM EDT 02/10/2021 11:20 AM EDT Jonelle Redman MD POINT OF CARE TEST O RDERABLES Performing Organization Address [facility]/ZIP Co de Phone Number [facility] [place] [address] * POCT Glucose (02/10/2021 6:37 AM EDT) POC Glucose 174 65 - 199 mg/dL [facility] Comment: Supplemental ranges: <140 mg/dL before meals <180 mg/dL all other times of the day Blood specimen (specimen) 02/10/2021 6:37 AM EDT 02/10/2021 6:37 AM EDT Jonelle Redman MD POINT OF CARE TEST O RDERABLES Performing Organization Address City/[facility]/ZIP Co de Phone Number [facility] [place] [address] * (ABNORMAL) Differential, Automated (02/10/2021 3:38 AM EDT) Neutrophils % 70.9 % [facility] Neutr Abs (ANC) 7.38(H) 1.70 - 6.10 x10(3)/[facility] Lymphocytes % 20.2 % [facility] Lymphocytes Abs 2.1 0.9 - 3.2 x10(3)/[facility] Monocytes % 6.4 % [facility] Monocyte Abs 0.7 0.3 - 0.9 x10(3)/[facility] Eosinophils % 1.4 % [facility] Eosinophils Abs 0.2 0.0 - 0.4 x10(3)/[facility]OR[facility] Basophils % 0.3 % [facility] Basophils Abs 0.0 0.0 - 0.1 x10(3)/[facility] Immature Gran % 0.80 % [facility] Comment: Immature granulocytes(IG's)percentage and absolute count will include metamyelocytes, myelocytes, and promyelocytes. Blood smears from CBCs yielding IG's will be scanned manually for concordance. If this scan disagrees with the automated IG or if promyelocytes are noted, a manual differential will be performed. Anya Gran Abs 0.08(H) 0.00 - 0.04 x10(3)/[facility] Blood specimen (specimen) 02/10/2021 3:38 AM EDT 02/10/2021 3:43 AM EDT Narrative Resulting Agency Comment Spec In Lab Bibiana Yarbrough MD HEMATOLOGY ORDERABLE S Performing Organization Address City/[facility]/ZIP Co de Phone Number [facility] [place] [address] * (ABNORMAL) Hemogram (02/10/2021 3:38 AM EDT) Pathologist [facility] WBC 10.4(H) 4.0 - 9.5 x10(3)/[facility] LABORATORY RBC 3.05(L) 4.00 - 5.21 x10(6)/[facility] Hemoglobin 9.2(L) 11.7 - 15.5 gm/dL [facility] Hematocrit 28.0(L) 35.7 - 45.8 % [facility] MCV 91.8 82.6 - 94.4 [facility]ORY MCH 30.2 27.1 - 32.0 pg [facility] MCHC 32.9 31.7 - 35.0 gm/dL [facility] Platelets 344 145 - 357 x10(3)/[facility]ORATORY RDWSD 47.4(H) 37.0 - 46.0 [facility]ORATORY RDWCV 14.0 11.5 - 14.1 % [facility] MPV 11.6 7.6 - 12.9 [facility] nRBC % Auto 0.0 % [facility] nRBC Abs Auto 0.000 0.000 - 0.000 x10(3)/[facility] Blood specimen (specimen) 02/10/2021 3:38 AM EDT 02/10/2021 3:43 AM EDT Narrative Resulting Agency Comment Spec In Lab Bibiana Yarbrough MD HEMATOLOGY ORDERABLE S [facility] [place] [address] * Magnesium (02/10/2021 3:38 AM EDT) Pathologist [facility] Magnesium 0.85 0.69 - 1.07 mmol/L [facility] Blood specimen (specimen) 02/10/2021 3:38 AM EDT 02/10/2021 3:43 AM EDT Narrative Resulting Agency Comment Spec In Lab Brittny Woods MD CHEMISTRY ORDERABLES [facility] [place] [address] * (ABNORMAL) BMP w/fasting Glucose (02/10/2021 3:38 AM EDT) Glucose Fasting 132(H) 65 - 99 mg/dL [facility] Comment: ?Fasting* Glucose Interpretive Criteria [...] of Diabetes Mellitus, Position Statement from the [place] [employer]. ??Diabetes Care, Volume 33, Supplement 1, Oct 2009 BUN 19(H) 8 - 18 mg/dL [facility] Creatinine 0.99 0.70 - 1.20 mg/dL [facility] Sodium 132(L) 135 - 145 mmol/L [facility] Potassium Not Perf 3.5 - 5.0 [facility] Comment: Unable to quantitate due [...] questions. Chloride 91(L) 98 - 107 mmol/L [facility] CO2 32(H) 22 - 31 mmol/L [facility] Anion Gap 9 5 - 15 mmol/L [facility] Calcium 7.9(L) 8.5 - 10.5 mg/dL [facility] Estimated GFR 59(L) >=60 mL/min/1. 73 m?? [facility] Comment: This patient? s estimated [...] Woods MD CHEMISTRY ORDERABLES Performing Organization Address City/[facility]/ZIP Co de Phone Number [facility] [place] [address] * POCT Glucose (02/09/2021 8:23 PM EDT) POC Glucose 173 65 - 199 mg/dL [facility] Comment: Supplemental ranges: <140 mg/dL before meals <180 mg/dL all other times of the day Blood specimen (specimen) 02/09/2021 8:23 PM EDT 02/09/2021 8:23 PM EDT Jonelle Redman MD POINT OF CARE TEST O RDERABLES Performing Organization Address City/[facility]/ZIP Co de Phone Number [facility] [place] [address] * POCT Glucose (02/09/2021 4:18 PM EDT) POC Glucose 168 65 - 199 mg/dL [facility] Comment: Supplemental ranges: <140 mg/dL before meals <180 mg/dL all other times of the day Blood specimen (specimen) 02/09/2021 4:18 PM EDT 02/09/2021 4:18 PM EDT Jonelle Redman MD POINT OF CARE TEST O RDERAMARIE Performing Organization Address [facility]/ZIP Co de Phone Number [facility] [place] [address] * POCT Glucose (02/09/2021 11:51 AM EDT) POC Glucose 186 65 - 199 mg/dL [facility] Comment: Supplemental ranges: <140 mg/dL before meals <180 mg/dL all other times of the day Blood specimen (specimen) 02/09/2021 11:51 AM EDT 02/09/2021 11:51 AM EDT Jonelle Redman MD POINT OF CARE TEST O RDERAMARIE Performing Organization Address [facility] Co de Phone Number [facility] [place] [address] * Magnesium (02/09/2021 11:27 AM EDT) Magnesium 0.87 0.69 - 1.07 mmol/L [facility] Blood specimen (specimen) 02/09/2021 11:27 AM EDT 02/09/2021 11:38 AM EDT Narrative Resulting Agency Comment Spec In Lab Travis Callahan MD CHEMISTRY ORDERABLES Performing Organization Address [facility]/ZIP Co de Phone Number [facility] [place] [address] * (ABNORMAL) BMP w/fasting Glucose (02/09/2021 11:27 AM EDT) Glucose Fasting 173(H) 65 - 99 mg/dL [facility] Comment: ?Fasting* Glucose Interpretive Criteria [...] of Diabetes Mellitus, Position Statement from the [place] [employer]. ??Diabetes Care, Volume 33, Supplement 1, Oct 2009 BUN 19(H) 8 - 18 mg/dL [facility] Creatinine 1.09 0.70 - 1.20 mg/dL [facility] Sodium 131(L) 135 - 145 mmol/L [facility] Potassium 3.9 3.5 - 5.0 mmol/L [facility] Comment: Please note: ??Patients with WBC >100,000 may have falsely elevated Potassium levels. ??For accurate Potassium quantification in these patients send serum separator tube (gold top) for subsequent determinations. ??Contact the Clinical Chemistry Laboratory if there are any questions. Chloride 92(L) 98 - 107 mmol/L [facility] CO2 30 22 - 31 mmol/L [facility] Anion Gap 9 5 - 15 mmol/L [facility] Calcium 7.8(L) 8.5 - 10.5 mg/dL [facility] Estimated GFR 52(L) >=60 mL/min/1. 73 m?? [facility] Comment: This patient? s estimated [...] Callahan MD CHEMISTRY ORDERABLES Performing Organization Address [facility] Co de Phone Number [facility] [place] [address] * POCT Glucose (02/09/2021 6:43 AM EDT) [facility] POC Glucose 133 65 - 199 mg/dL [facility] Comment: Supplemental ranges: <140 mg/dL before meals <180 mg/dL all other times of the day Blood specimen (specimen) 02/09/2021 6:43 AM EDT 02/09/2021 6:43 AM EDT Travis Callahan MD POINT OF CARE TEST O RDERABLES Performing Organization Address [facility] Co de Phone Number [facility] [place] [address] * (ABNORMAL) Differential, Automated (02/09/2021 3:55 AM EDT) Pathologist [facility] Neutrophils % 73.5 % [facility] Neutr Abs (ANC) 8.28(H) 1.70 - 6.10 x10(3)/mc L [facility] Lymphocytes % 16.3 % [facility] Lymphocytes Abs 1.8 0.9 - 3.2 x10(3)/mc L [facility] Monocytes % 7.6 % [facility] Monocyte Abs 0.8 0.3 - 0.9 x10(3)/mc L [facility] Eosinophils % 1.3 % [facility] Eosinophils Abs 0.2 0.0 - 0.4 x10(3)/[facility] Basophils % 0.2 % [facility] Basophils Abs 0.0 0.0 - 0.1 x10(3)/[facility]OR[facility] Immature Gran % 1.10 % [facility] Comment: Immature granulocytes(IG's)percentage and absolute count will include metamyelocytes, myelocytes, and promyelocytes. Blood smears from CBCs yielding IG's will be scanned manually for concordance. If this scan disagrees with the automated IG or if promyelocytes are noted, a manual differential will be performed. Anya Gran Abs 0.12(H) 0.00 - 0.04 x10(3)/[facility] Blood specimen (specimen) 02/09/2021 3:55 AM EDT 02/09/2021 4:02 AM EDT Narrative Resulting Agency Comment Spec In Lab Bibiana Yarbrough MD HEMATOLOGY ORDERABLE S [facility] [place] [address] * (ABNORMAL) Hemogram (02/09/2021 3:55 AM EDT) WBC 11.2(H) 4.0 - 9.5 x10(3)/[facility] RBC 2.87(L) 4.00 - 5.21 x10(6)/[facility] Hemoglobin 8.5(L) 11.7 - 15.5 gm/dL [facility] Hematocrit 26.8(L) 35.7 - 45.8 % [facility] MCV 93.4 82.6 - 94.4 fL [facility] MCH 29.6 27.1 - 32.0 pg [facility] MCHC 31.7 31.7 - 35.0 gm/dL [facility] Platelets 283 145 - 357 x10(3)/[facility]ORATORY RDWSD 47.4(H) 37.0 - 46.0 [facility]ATORY RDWCV 13.9 11.5 - 14.1 % [facility] MPV 11.7 7.6 - 12.9 [facility] nRBC % Auto 0.0 % [facility] nRBC Abs Auto 0.000 0.000 - 0.000 x10(3)/[facility] Blood specimen (specimen) 02/09/2021 3:55 AM EDT 02/09/2021 4:02 AM EDT Narrative Resulting Agency Comment Spec In Lab Bibiana Yarbrough MD HEMATOLOGY ORDERABLE S Performing Organization Address [facility] [place] [address] * (ABNORMAL) Magnesium (02/09/2021 3:55 AM EDT) Magnesium 0.67(L) 0.69 - 1.07 mmol/L [facility] Blood specimen (specimen) 02/09/2021 3:55 AM EDT 02/09/2021 4:03 AM EDT Narrative Resulting Agency Comment Spec In Lab Brittny Woods MD CHEMISTRY ORDERABLES Performing Organization Address [facility] Co de Phone Number [facility] [place] [address] * (ABNORMAL) BMP w/fasting Glucose (02/09/2021 3:55 AM EDT) Glucose Fasting 122(H) 65 - 99 mg/dL [facility] Comment: ?Fasting* Glucose Interpretive Criteria [...] of Diabetes Mellitus, Position Statement from the [place] [employer]. ??Diabetes Care, Volume 33, Supplement 1, Oct 2009 BUN 20(H) 8 - 18 mg/dL [facility] Creatinine 1.07 0.70 - 1.20 mg/dL [facility] Sodium 135 135 - 145 mmol/L [facility] Potassium 4.0 3.5 - 5.0 mmol/L [facility] Comment: Please note: ??Patients with WBC >100,000 may have falsely elevated Potassium levels. ??For accurate Potassium quantification in these patients send serum separator tube (gold top) for subsequent determinations. ??Contact the Clinical Chemistry Laboratory if there are any questions. Chloride 94(L) 98 - 107 mmol/L [facility] CO2 31 22 - 31 mmol/L [facility] Anion Gap 10 5 - 15 mmol/L [facility] Calcium 8.0(L) 8.5 - 10.5 mg/dL [facility] Estimated GFR 54(L) >=60 mL/min/1. 73 m?? [facility] Comment: This patient? s estimated [...] Woods MD CHEMISTRY ORDERABLES Performing Organization Address [facility] Co de Phone Number [facility] [place] [address] * POCT Glucose (02/08/2021 7:50 PM EDT) POC Glucose 133 65 - 199 mg/dL [facility] Comment: Supplemental ranges: <140 mg/dL before meals <180 mg/dL all other times of the day Blood specimen (specimen) 02/08/2021 7:50 PM EDT 02/08/2021 7:50 PM EDT Travis Callahan MD POINT OF CARE TEST O RDERABLES Performing Organization Address [facility] Co de Phone Number [facility] [place] [address] * POCT Glucose (02/08/2021 4:30 PM EDT) POC Glucose 196 65 - 199 mg/dL [facility] Comment: Supplemental ranges: <140 mg/dL before meals <180 mg/dL all other times of the day Blood specimen (specimen) 02/08/2021 4:30 PM EDT 02/08/2021 4:30 PM EDT Travis Callahan MD POINT OF CARE TEST O RDERABLES Performing Organization Address [facility] Co de Phone Number [facility] [place] [address] * POCT Glucose (02/08/2021 3:46 PM EDT) POC Glucose 161 65 - 199 mg/dL [facility] Comment: Supplemental ranges: <140 mg/dL before meals <180 mg/dL all other times of the day Blood specimen (specimen) 02/08/2021 3:46 PM EDT 02/08/2021 3:46 PM EDT Travis Callahan MD POINT OF CARE TEST O RDERABLES Performing Organization Address [facility] Co de Phone Number [facility] [place] [address] * POCT Glucose (02/08/2021 11:52 AM EDT) POC Glucose 163 65 - 199 mg/dL [facility] Comment: Supplemental ranges: <140 mg/dL before meals <180 mg/dL all other times of the day Blood specimen (specimen) 02/08/2021 11:52 AM EDT 02/08/2021 11:52 AM EDT Travis Callahan MD POINT OF CARE TEST O RDERABLES Performing Organization Address [facility] de Phone Number [facility] [place] [address] * Magnesium (02/08/2021 11:19 AM EDT) Magnesium 0.70 0.69 - 1.07 mmol/L [facility] Blood specimen (specimen) 02/08/2021 11:19 AM EDT 02/08/2021 11:24 AM EDT Narrative Resulting Agency Comment Spec In Lab Travis Callahan MD CHEMISTRY ORDERABLES Performing Organization Address [facility] de Phone Number [facility] [place] [address] * (ABNORMAL) BMP w/fasting Glucose (02/08/2021 11:19 AM EDT) Glucose Fasting 167(H) 65 - 99 mg/dL [facility] Comment: ?Fasting* Glucose Interpretive Criteria [...] of Diabetes Mellitus, Position Statement from the [place] [employer]. ??Diabetes Care, Volume 33, Supplement 1, Oct 2009 BUN 22(H) 8 - 18 mg/dL [facility] Creatinine 1.10 0.70 - 1.20 mg/dL [facility] Sodium 134(L) 135 - 145 mmol/L [facility] Potassium 4.0 3.5 - 5.0 mmol/L [facility] Comment: Please note: ??Patients with WBC >100,000 may have falsely elevated Potassium levels. ??For accurate Potassium quantification in these patients send serum separator tube (gold top) for subsequent determinations. ??Contact the Clinical Chemistry Laboratory if there are any questions. Chloride 93(L) 98 - 107 mmol/L [facility] CO2 32(H) 22 - 31 mmol/L [facility] Anion Gap 9 5 - 15 mmol/L [facility] Calcium 7.8(L) 8.5 - 10.5 mg/dL [facility] Estimated GFR 52(L) >=60 mL/min/1. 73 m?? [facility] Comment: This patient? s estimated [...] Callahan MD CHEMISTRY ORDERABLES Performing Organization Address City/[facility]/ZIP Co de Phone Number [facility] [place] [address] * POCT Glucose (02/08/2021 6:49 AM EDT) POC Glucose 163 65 - 199 mg/dL [facility] Comment: Supplemental ranges: <140 mg/dL before meals <180 mg/dL all other times of the day Blood specimen (specimen) 02/08/2021 6:49 AM EDT 02/08/2021 6:49 AM EDT Travis Callahan MD POINT OF CARE TEST O RDERABLES Performing Organization Address [facility] Co de Phone Number [facility] [place] [address] * EKG 12 Lead (02/08/2021 6:04 AM EDT) Ventricular rate 87 BPM MUSE SYSTEM Atrial Rate 87 BPM MUSE SYSTEM P-R Interval 206 ms MUSE SYSTEM QRS Duration 84 ms MUSE SYSTEM Q-T Interval 420 ms MUSE SYSTEM QTC Calculated (Bezet) 505 ms MUSE SYSTEM Calculated P [place] 8 degrees MUSE SYSTEM Calculated R [place] 29 degrees MUSE SYSTEM Calculated T [place]wood 164 degrees MUSE SYSTEM INTERPRETATION Normal sinus [...] AM EDT Travis Callahan MD ECG ORDERABLES Performing Organization Address City/[facility]/ZIP Co de Phone Number MUSE SYSTEM * XR Chest One View [...] who have questions please contact the health transition of care specialist that requested your imaging first. ? Narrative 02/08/2021 8:04 AM EDT EXAMINATION: XR [...] patients who have questions please contactthe health transition of care specialist that requested your imaging first. Travis Callahan MD IMG DX ORDERABLES * (ABNORMAL) Hepatic Function Panel (02/08/2021 4:05 AM EDT) Pathologist [facility] Total Protein 6.3 6.1 - 8.0 gm/dL [facility] Albumin 1.9(L) 3.2 - 5.2 gm/dL [facility] AST 47(H) 0 - 30 unit/L [facility] ALT 23 0 - 30 unit/L [facility] Alk Phos 313(H) 35 - 105 unit/L [facility] Total Bilirubin 0.4 0.2 - 1.3 mg/dL [facility] Bili, Direct 0.2 0.0 - 0.3 mg/dL [facility] Blood specimen (specimen) Venous Draw / Unknown 02/08/2021 4:05 AM EDT 02/08/2021 4:18 AM EDT Narrative Resulting Agency Comment Spec In Lab Freddie Montes MD CHEMISTRY ORDERABLES [facility] [place] [address] * (ABNORMAL) Troponin (02/08/2021 4:05 AM EDT) Pathologist [facility] Troponin-T 0.03(H) 0.00 - 0.00 ng/mL [facility] Comment: The 99th percentile for Troponin T is less than 0.01 ng/mL, any detectable cTnT concentration using this assay should be considered elevated. According to the third universal definition of myocardial infarction the following criteria with a clinical presentation consistent with acute myocardial ischemia meets the diagnosis for a myocardial infarction (MA). Detection of a rise and/or fall of cTnT, with at least one value greater than the 99th percentile (> or = 0.01) and with at least one of the following ?? Symptoms of ischemia ?? New or presumed new significant BB-kugtwol-X wave (ST-T) changes or new left bundle [...] additional sample may be indicated. Reference: Third [place] Definition of Myocardial Infarction. Journal of the [place] [employer] 2012;60:1581-98 Blood specimen (specimen) 02/08/2021 4:05 AM EDT 02/08/2021 4:16 AM EDT Narrative Resulting Agency Comment Spec In Lab Travis Callahan MD CHEMISTRY ORDERABLES Performing Organization Address City/State/[facility] Co de Phone Number [facility] [place] [address] * (ABNORMAL) Differential, Automated (02/08/2021 4:05 AM EDT) Neutrophils % 78.4 % [facility] Neutr Abs (ANC) 9.62(H) 1.70 - 6.10 x10(3)/mc L [facility] Lymphocytes % 12.2 % [facility] Lymphocytes Abs 1.5 0.9 - 3.2 x10(3)/mc L [facility] Monocytes % 7.7 % [facility] Monocyte Abs 0.9 0.3 - 0.9 x10(3)/mc L [facility] Eosinophils % 0.8 % [facility] Eosinophils Abs 0.1 0.0 - 0.4 x10(3)/[facility] Basophils % 0.2 % [facility] Basophils Abs 0.0 0.0 - 0.1 x10(3)/[facility] Immature Gran % 0.70 % [facility] Comment: Immature granulocytes(IG's)percentage and absolute count will include metamyelocytes, myelocytes, and promyelocytes. Blood smears from CBCs yielding IG's will be scanned manually for concordance. If this scan disagrees with the automated IG or if promyelocytes are noted, a manual differential will be performed. Anya Gran Abs 0.09(H) 0.00 - 0.04 x10(3)/[facility] Blood specimen (specimen) 02/08/2021 4:05 AM EDT 02/08/2021 4:16 AM EDT Narrative Resulting Agency Comment Spec In Lab Bibiana Yarbrough MD HEMATOLOGY ORDERABLE S [facility] [place] [address] * (ABNORMAL) Hemogram (02/08/2021 4:05 AM EDT) WBC 12.3(H) 4.0 - 9.5 x10(3)/[facility] RBC 2.66(L) 4.00 - 5.21 x10(6)/[facility] Hemoglobin 8.0(L) 11.7 - 15.5 gm/dL [facility] Hematocrit 24.3(L) 35.7 - 45.8 % [facility] MCV 91.4 82.6 - 94.4 fL [facility] MCH 30.1 27.1 - 32.0 pg [facility] MCHC 32.9 31.7 - 35.0 gm/dL [facility] Platelets 248 145 - 357 x10(3)/[facility] RDWSD 47.6(H) 37.0 - 46.0 fL [facility] RDWCV 14.2(H) 11.5 - 14.1 % [facility] MPV 11.8 7.6 - 12.9 fL [facility] nRBC % Auto 0.0 % [facility] nRBC Abs Auto 0.000 0.000 - 0.000 x10(3)/mcL [facility] Blood specimen (specimen) 02/08/2021 4:05 AM EDT 02/08/2021 4:16 AM EDT Narrative Resulting Agency Comment Spec In Lab Bibiana Yarbrough MD HEMATOLOGY ORDERABLE S Performing Organization Address [facility]/ZIP Co de Phone Number [facility] [place] [address] * (ABNORMAL) Magnesium (02/08/2021 4:05 AM EDT) Magnesium 0.66(L) 0.69 - 1.07 mmol/L [facility] Blood specimen (specimen) 02/08/2021 4:05 AM EDT 02/08/2021 4:16 AM EDT Narrative Resulting Agency Comment Spec In Lab Brittny Woods MD CHEMISTRY ORDERABLES Performing Organization Address [facility] Co de Phone Number [facility] [place] [address] * (ABNORMAL) BMP w/fasting Glucose (02/08/2021 4:05 AM EDT) Glucose Fasting 164(H) 65 - 99 mg/dL [facility] Comment: ?Fasting* Glucose Interpretive Criteria [...] of Diabetes Mellitus, Position Statement from the [place] [employer]. ??Diabetes Care, Volume 33, Supplement 1, Oct 2009 BUN 23(H) 8 - 18 mg/dL [facility] Creatinine 1.11 0.70 - 1.20 mg/dL [facility] Sodium 133(L) 135 - 145 mmol/L [facility] Potassium 3.5 3.5 - 5.0 mmol/L [facility] Comment: Please note: ??Patients with WBC >100,000 may have falsely elevated Potassium levels. ??For accurate Potassium quantification in these patients send serum separator tube (gold top) for subsequent determinations. ??Contact the Clinical Chemistry Laboratory if there are any questions. Chloride 94(L) 98 - 107 mmol/L [facility] CO2 31 22 - 31 mmol/L [facility] Anion Gap 8 5 - 15 mmol/L [facility] Calcium 7.7(L) 8.5 - 10.5 mg/dL [facility] Estimated GFR 51(L) >=60 mL/min/1. 73 m?? [facility] Comment: This patient? s estimated [...] Woods MD CHEMISTRY ORDERABLES Performing Organization Address [facility]/ZIP Co de Phone Number [facility] [place] [address] * LDL Cholesterol, Direct (02/08/2021 4:05 AM EDT) LDL Chol Direct 17 mg/dL [facility] Comment: Lowest Risk: <100 mg/dL Lower Risk: 100-129 mg/dL Borderline High Risk: 130-159 mg/dL High Risk: 160-189 mg/dL Very High Risk: >vs=372 mg/dL Blood specimen (specimen) 02/08/2021 4:05 AM EDT 02/08/2021 4:16 AM EDT Narrative Resulting Agency Comment Spec In Lab Travis Callahan MD CHEMISTRY ORDERABLES Performing Organization Address [facility] Co de Phone Number [facility] [place] [address] * HDL/Cholesterol Profile (02/08/2021 4:05 AM EDT) Chol, Total 85 mg/dL [facility] Comment: Lower Risk: <200 mg/dL Average Risk: 200-239 mg/dL Higher Risk: >js=288 mg/dL HDL 19 mg/dL [facility] Comment: Males: ?? Higher Risk: <40 mg/dL Females: ?? Higher Risk: <50 mg/dL Chol/HDL Ratio 4.5 ratio [facility] Chol/HDL Interpretation See Note [facility] Comment: Lipid management should be guided by a patient? s ASCVD risk, goals and preferences. ACC/AHA Guidelines recommend high intensity statin if clinical ASCVD or LDL greater than or equal to 190 mg/dL. http://MOLOMEurl.com/YQE-URN-Yhwafejra Measure LDL if Total Cholesterol minus HDL Cholesterol is greater than 220 mg/dL. Adults aged 40-75 with LDL 70-189 mg/dL should have their 10 year ASCVD risk estimated with the ACC/AHA ASCVD risk chief fishery division http://tools.acc.org/LZMWN-Kkzt-Kpbmwobkj/ Statin should be discussed if risk greater [...] Callahan MD CHEMISTRY ORDERABLES Performing Organization Address [facility] de Phone Number [facility] [place] [address] * POCT Glucose (02/07/2021 5:24 PM EDT) POC Glucose 185 65 - 199 mg/dL [facility] Comment: Supplemental ranges: <140 mg/dL before meals <180 mg/dL all other times of the day Blood specimen (specimen) 02/07/2021 5:24 PM EDT 02/07/2021 5:24 PM EDT Travis Callahan MD POINT OF CARE TEST O RDERABLES Performing Organization Address [facility] de Phone Number [facility] [place] [address] * CARDIAC CATHETERIZATION (02/07/2021 3:20 PM EDT) Anatomical Region Laterality Modality Other Narrative 02/07/2021 3:34 PM EDT ?[facility] ? Cardiac Catheterization/Intervention Report ? Patient Name: Lion, Toyin I. ? Procedure Date: 02/07/2021 ? A #: [id number] ? Primary Physician: Cruz, Antonio P ? Case #: [id number] ? File Name: [id number] ? Catheterization Order Number: [id number] ? [facility] ? Final Report [place], [place] ? Patient Name: ? Toyin I. Lion ? ID#: ?[id number] ? : ?1955 ? Procedure Date: ? [...] procedure was Urgent. The indication for ?the engineering lab technician visit is ACS greater than 24 [...] Cruz, M.D. ? Electronically Signed by: Antonio P Cruz, M.D. ? Report Finalized: 02/07/2021 ??15:30 ? Procedure Note Antonio Cruz MD - 02/07/2021 [facility] Cardiac Catheterization/Intervention Report Patient Name: Toyin Lion I. Procedure Date: 02/07/2021 A #: [id number] Primary Physician: Antonio Cruz Case #: [id number] File Name: [id number] Catheterization Order Number: [id number] [facility] FinalReport [place], [place] Patient Name: Toyin Lion ID#:[id number] :1955 Procedure Date: February 07, 2021 Case [...] was designated as ASA Class III. The [facility] clinical frailtyscale is 5: Mildly Frail. Diagnostic Tests: Prior Coronary Angiography: LV ejection fraction within 6 months is 40%. Electrocardiography: EKG was assessed by ECG. EKG was Abnormal. EKG showed other abnormality. Medications Prior to Procedure: Aspirin, Beta Татьяна and Statin. Indications for Diagnostic Cath: The priority of the diagnostic procedure was Urgent. The indicationfor the engineering lab technician visit is ACS greater than 24 [...] Cruz M.D. Report Finalized: 02/07/2021 15:30 Antonio Navdeep Cruz MD CARDIAC CATH ORDERAB LES * Magnesium (02/07/2021 12:03 PM EDT) Magnesium 0.75 0.69 - 1.07 mmol/L [facility] Blood specimen (specimen) 02/07/2021 12:03 PM EDT 02/07/2021 12:17 PM EDT Narrative Resulting Agency Comment Spec In Lab Travis Callahan MD CHEMISTRY ORDERABLES [facility] [place] [address] * (ABNORMAL) BMP w/fasting Glucose (02/07/2021 12:03 PM EDT) Glucose Fasting 128(H) 65 - 99 mg/dL [facility] Comment: ?Fasting* Glucose Interpretive Criteria [...] of Diabetes Mellitus, Position Statement from the [place] [employer]. ??Diabetes Care, Volume 33, Supplement 1, Oct 2009 BUN 23(H) 8 - 18 mg/dL [facility] Creatinine 1.11 0.70 - 1.20 mg/dL [facility] Sodium 132(L) 135 - 145 mmol/L [facility] Potassium 3.5 3.5 - 5.0 mmol/L [facility] Comment: Please note: ??Patients with WBC >100,000 may have falsely elevated Potassium levels. ??For accurate Potassium quantification in these patients send serum separator tube (gold top) for subsequent determinations. ??Contact the Clinical Chemistry Laboratory if there are any questions. Chloride 93(L) 98 - 107 mmol/L [facility] CO2 30 22 - 31 mmol/L [facility] Anion Gap 9 5 - 15 mmol/L [facility] Calcium 8.1(L) 8.5 - 10.5 mg/dL [facility] Estimated GFR 51(L) >=60 mL/min/1. 73 m?? [facility] Comment: This patient? s estimated [...] Callahan MD CHEMISTRY ORDERABLES Performing Organization Address [facility]/ZIP Co de Phone Number [facility] [place] [address] * POCT Glucose (02/07/2021 11:41 AM EDT) POC Glucose 123 65 - 199 mg/dL [facility] Comment: Supplemental ranges: <140 mg/dL before meals <180 mg/dL all other times of the day Blood specimen (specimen) 02/07/2021 11:41 AM EDT 02/07/2021 11:41 AM EDT Travis Callahan MD POINT OF CARE TEST O RDERABLES [facility] [place] [address] * POCT Glucose (02/07/2021 6:32 AM EDT) Pathologist [facility] POC Glucose 142 65 - 199 mg/dL [facility] Comment: Supplemental ranges: <140 mg/dL before meals <180 mg/dL all other times of the day Blood specimen (specimen) 02/07/2021 6:32 AM EDT 02/07/2021 6:32 AM EDT Travis Callahan MD POINT OF CARE TEST O RDERABLES [facility] [place] [address] * (ABNORMAL) Differential, Automated (02/07/2021 3:49 AM EDT) Pathologist [facility] Neutrophils % 79.8 % [facility] Neutr Abs (ANC) 11.40(H) 1.70 - 6.10 x10(3)/mc L [facility] Lymphocytes % 10.7 % [facility] Lymphocytes Abs 1.5 0.9 - 3.2 x10(3)/[facility] Monocytes % 7.8 % [facility] Monocyte Abs 1.1(H) 0.3 - 0.9 x10(3)/ L [facility] Eosinophils % 0.6 % [facility] Eosinophils Abs 0.1 0.0 - 0.4 x10(3)/mc L [facility] Basophils % 0.1 % [facility] Basophils Abs 0.0 0.0 - 0.1 x10(3)/mc L [facility] Immature Gran % 1.00 % [facility] Comment: Immature granulocytes(IG's)percentage and absolute count will include metamyelocytes, myelocytes, and promyelocytes. Blood smears from CBCs yielding IG's will be scanned manually for concordance. If this scan disagrees with the automated IG or if promyelocytes are noted, a manual differential will be performed. Anya Gran Abs 0.15(H) 0.00 - 0.04 x10(3)/ L [facility] Blood specimen (specimen) 02/07/2021 3:49 AM EDT 02/07/2021 3:59 AM EDT Narrative Resulting Agency Comment Spec In Lab Bibiana Yarbrough MD HEMATOLOGY ORDERABLE S [facility] [place] [address] * (ABNORMAL) Hemogram (02/07/2021 3:49 AM EDT) WBC 14.3(H) 4.0 - 9.5 x10(3)/[facility] RBC 3.25(L) 4.00 - 5.21 x10(6)/[facility] Hemoglobin 9.8(L) 11.7 - 15.5 gm/dL [facility] Hematocrit 29.1(L) 35.7 - 45.8 % [facility] MCV 89.5 82.6 - 94.4 [facility] MCH 30.2 27.1 - 32.0 pg [facility] MCHC 33.7 31.7 - 35.0 gm/dL [facility] Platelets 232 145 - 357 x10(3)/[facility] RDWSD 45.7 37.0 - 46.0 [facility] RDWCV 13.9 11.5 - 14.1 % [facility] MPV 11.5 7.6 - 12.9 [facility] nRBC % Auto 0.0 % [facility] nRBC Abs Auto 0.000 0.000 - 0.000 x10(3)/[facility] Blood specimen (specimen) 02/07/2021 3:49 AM EDT 02/07/2021 3:59 AM EDT Narrative Resulting Agency Comment Spec In Lab Bibiana Yarbrough MD HEMATOLOGY ORDERABLE S Performing Organization Address [facility]/ZIP Co de Phone Number [facility] [place] [address] * Magnesium (02/07/2021 3:49 AM EDT) Magnesium 0.72 0.69 - 1.07 mmol/L [facility] Blood specimen (specimen) 02/07/2021 3:49 AM EDT 02/07/2021 4:00 AM EDT Narrative Resulting Agency Comment Spec In Lab Brittny Woods MD CHEMISTRY ORDERABLES Performing Organization Address [facility] Co de Phone Number [facility] [place] [address] * (ABNORMAL) BMP w/fasting Glucose (02/07/2021 3:49 AM EDT) Glucose Fasting 121(H) 65 - 99 mg/dL [facility] Comment: ?Fasting* Glucose Interpretive Criteria [...] of Diabetes Mellitus, Position Statement from the [place] [employer]. ??Diabetes Care, Volume 33, Supplement 1, Oct 2009 BUN 24(H) 8 - 18 mg/dL [facility] Creatinine 1.19 0.70 - 1.20 mg/dL [facility] Sodium 132(L) 135 - 145 mmol/L [facility] Potassium 3.3(L) 3.5 - 5.0 mmol/L [facility] Comment: Please note: ??Patients with WBC >100,000 may have falsely elevated Potassium levels. ??For accurate Potassium quantification in these patients send serum separator tube (gold top) for subsequent determinations. ??Contact the Clinical Chemistry Laboratory if there are any questions. Chloride 93(L) 98 - 107 mmol/L [facility] CO2 29 22 - 31 mmol/L [facility] Anion Gap 10 5 - 15 mmol/L [facility] Calcium 8.1(L) 8.5 - 10.5 mg/dL [facility] Estimated GFR 47(L) >=60 mL/min/1. 73 m?? [facility] Comment: This patient? s estimated [...] In Lab Brittny Woods MD CHEMISTRY ORDERABLES [facility] [place] [address] * (ABNORMAL) POCT Glucose (02/06/2021 11:36 PM EDT) POC Glucose 209(H) 65 - 199 mg/dL [facility] Comment: Supplemental ranges: <140 mg/dL before meals <180 mg/dL all other times of the day Blood specimen (specimen) 02/06/2021 11:36 PM EDT 02/06/2021 11:36 PM EDT Travis Callahan MD POINT OF CARE TEST O RDERABLES Performing Organization Address [facility] de Phone Number [facility] [place] [address] * POCT Glucose (02/06/2021 4:15 PM EDT) POC Glucose 156 65 - 199 mg/dL [facility] Comment: Supplemental ranges: <140 mg/dL before meals <180 mg/dL all other times of the day Blood specimen (specimen) 02/06/2021 4:15 PM EDT 02/06/2021 4:15 PM EDT Travis Callahan MD POINT OF CARE TEST O RDERABLES Performing Organization Address [facility] de Phone Number [facility] [place] [address] * Magnesium (02/06/2021 1:32 PM EDT) Pathologist [facility] Magnesium 0.80 0.69 - 1.07 mmol/L [facility] Blood specimen (specimen) 02/06/2021 1:32 PM EDT 02/06/2021 1:44 PM EDT Narrative Resulting Agency Comment Spec In Lab Travis Callahan MD CHEMISTRY ORDERABLES Performing Organization Address [facility] de Phone Number [facility] [place] [address] * (ABNORMAL) BMP w/fasting Glucose (02/06/2021 1:32 PM EDT) Glucose Fasting 190(H) 65 - 99 mg/dL [facility] Comment: ?Fasting* Glucose Interpretive Criteria [...] of Diabetes Mellitus, Position Statement from the [place] [employer]. ??Diabetes Care, Volume 33, Supplement 1, Oct 2009 BUN 24(H) 8 - 18 mg/dL [facility] Creatinine 1.30(H) 0.70 - 1.20 mg/dL [facility] Sodium 132(L) 135 - 145 mmol/L [facility] Potassium 4.1 3.5 - 5.0 mmol/L [facility] Comment: Please note: ??Patients with WBC >100,000 may have falsely elevated Potassium levels. ??For accurate Potassium quantification in these patients send serum separator tube (gold top) for subsequent determinations. ??Contact the Clinical Chemistry Laboratory if there are any questions. Chloride 95(L) 98 - 107 mmol/L [facility] CO2 27 22 - 31 mmol/L [facility] Anion Gap 10 5 - 15 mmol/L [facility] Calcium 8.0(L) 8.5 - 10.5 mg/dL [facility] Estimated GFR 42(L) >=60 mL/min/1. 73 m?? [facility] Comment: This patient? s estimated [...] Callahan MD CHEMISTRY ORDERABLES Performing Organization Address [facility] de Phone Number [facility] [place] [address] * POCT Glucose (02/06/2021 11:15 AM EDT) POC Glucose 185 65 - 199 mg/dL [facility] Comment: Supplemental ranges: <140 mg/dL before meals <180 mg/dL all other times of the day Blood specimen (specimen) 02/06/2021 11:15 AM EDT 02/06/2021 11:15 AM EDT Travis Callahan MD POINT OF CARE TEST O RDERABLES Performing Organization Address [facility] Phone Number [facility] [place] [address] * POCT Glucose (02/06/2021 7:20 AM EDT) POC Glucose 166 65 - 199 mg/dL [facility] Comment: Supplemental ranges: <140 mg/dL before meals <180 mg/dL all other times of the day Blood specimen (specimen) 02/06/2021 7:20 AM EDT 02/06/2021 7:20 AM EDT Travis Callahan MD POINT OF CARE TEST O RDERABLES Performing Organization Address [facility] de Phone Number [facility] [place] [address] * (ABNORMAL) Differential, Automated (02/06/2021 1:55 AM EDT) Neutrophils % 80.9 % [facility] Neutr Abs (ANC) 11.64(H) 1.70 - 6.10 x10(3)/mc L [facility] Lymphocytes % 10.4 % [facility] Lymphocytes Abs 1.5 0.9 - 3.2 x10(3)/[facility] Monocytes % 7.3 % [facility] Monocyte Abs 1.0(H) 0.3 - 0.9 x10(3)/[facility]OR[facility] Eosinophils % 0.4 % [facility] Eosinophils Abs 0.1 0.0 - 0.4 x10(3)/[facility] Basophils % 0.2 % [facility] Basophils Abs 0.0 0.0 - 0.1 x10(3)/[facility] LABOR[facility] Immature Gran % 0.80 % [facility] Comment: Immature granulocytes(IG's)percentage and absolute count will include metamyelocytes, myelocytes, and promyelocytes. Blood smears from CBCs yielding IG's will be scanned manually for concordance. If this scan disagrees with the automated IG or if promyelocytes are noted, a manual differential will be performed. Anya Gran Abs 0.12(H) 0.00 - 0.04 x10(3)/[facility] LAB[facility] Blood specimen (specimen) 02/06/2021 1:55 AM EDT 02/06/2021 2:07 AM EDT Narrative Resulting Agency Comment Spec In Lab Bibiana Yarbrough MD HEMATOLOGY ORDERABLE S Performing Organization Address City/State/[facility] Co de Phone Number [facility] [place] [address] * (ABNORMAL) Hemogram (02/06/2021 1:55 AM EDT) WBC 14.4(H) 4.0 - 9.5 x10(3)/[facility] LABORATORY RBC 3.03(L) 4.00 - 5.21 x10(6)/[facility]ORY Hemoglobin 9.2(L) 11.7 - 15.5 gm/dL [facility] Hematocrit 27.2(L) 35.7 - 45.8 % [facility] MCV 89.8 82.6 - 94.4 fL [facility] MCH 30.4 27.1 - 32.0 pg [facility] MCHC 33.8 31.7 - 35.0 gm/dL [facility] Platelets 232 145 - 357 x10(3)/[facility] LABORATORY RDWSD 46.2(H) 37.0 - 46.0 [facility] LABORATORY RDWCV 14.2(H) 11.5 - 14.1 % [facility] MPV 11.6 7.6 - 12.9 [facility]ORY nRBC % Auto 0.0 % [facility] nRBC Abs Auto 0.000 0.000 - 0.000 x10(3)/[facility]ATORY Blood specimen (specimen) 02/06/2021 1:55 AM EDT 02/06/2021 2:07 AM EDT Narrative Resulting Agency Comment Spec In Lab Bibiana Yarbrough MD HEMATOLOGY ORDERABLE S [facility] [place] [address] * (ABNORMAL) Magnesium (02/06/2021 1:55 AM EDT) Magnesium 0.68(L) 0.69 - 1.07 mmol/L [facility] Blood specimen (specimen) 02/06/2021 1:55 AM EDT 02/06/2021 2:07 AM EDT Narrative Resulting Agency Comment Spec In Lab Brittny Woods MD CHEMISTRY ORDERABLES Performing Organization Address [facility]/ZIP Co de Phone Number [facility] [place] [address] * (ABNORMAL) BMP w/fasting Glucose (02/06/2021 1:55 AM EDT) Glucose Fasting 121(H) 65 - 99 mg/dL [facility] Comment: ?Fasting* Glucose Interpretive Criteria [...] of Diabetes Mellitus, Position Statement from the [place] [employer]. ??Diabetes Care, Volume 33, Supplement 1, Oct 2009 BUN 24(H) 8 - 18 mg/dL [facility] Creatinine 1.27(H) 0.70 - 1.20 mg/dL [facility] Sodium 134(L) 135 - 145 mmol/L [facility] Potassium 3.7 3.5 - 5.0 mmol/L [facility] Comment: Please note: ??Patients with WBC >100,000 may have falsely elevated Potassium levels. ??For accurate Potassium quantification in these patients send serum separator tube (gold top) for subsequent determinations. ??Contact the Clinical Chemistry Laboratory if there are any questions. Chloride 96(L) 98 - 107 mmol/L [facility] CO2 27 22 - 31 mmol/L [facility] Anion Gap 11 5 - 15 mmol/L [facility] Calcium 8.0(L) 8.5 - 10.5 mg/dL [facility] Estimated GFR 44(L) >=60 mL/min/1. 73 m?? [facility] Comment: This patient? s estimated [...] Woods MD CHEMISTRY ORDERABLES Performing Organization Address [facility] de Phone Number [facility] [place] [address] * POCT Glucose (02/05/2021 4:10 PM EDT) POC Glucose 193 65 - 199 mg/dL [facility] Comment: Supplemental ranges: <140 mg/dL before meals <180 mg/dL all other times of the day Blood specimen (specimen) 02/05/2021 4:10 PM EDT 02/05/2021 4:10 PM EDT Travis Callahan MD POINT OF CARE TEST O RDERABLES Performing Organization Address [facility] de Phone Number [facility] [place] [address] * ECHO COMPLETE W CONTRAST (02/05/2021 3:46 PM EDT) EF 40 HEART[facility] SYSTEM Anatomical Region Laterality Modality Other 02/05/2021 Narrative 02/05/2021 4:13 PM EDT Procedure: ?Transthoracic Echocardiogram Patient: ?AMISHA CASTILLO I ? (Age): 1955(65y) Med Rec#: ? [id number] ?Sex: ?F ? Site Loc: ? [facility] ?Ht / Wt: ??160(cm)/94(kg) Pt. Loc: ?Adult Floor ? BSA: ?1.96 Study Date: ?? 02/05/2021 ?Pt. Type: Inpatient Tape: ? Referring: KATHY Referring: Brittny Woods Reading: Bryan Birmingham ([id number]) Security Installer: Deysi Moore Diagnosis: *Chronic diastolic (congestive) heart [...] Vmax ?1.74 ? m/sec ? MV deceleration [id number] ? msec ? MV A-wave Vmax ?1.87 [...] ? Mid-Inferior ?Hypokinetic ? Mid-Inferoseptal ?Hypokinetic ? [place]-Septal ? Akinetic ? [place]-Anterior ? Akinetic ? [place]-Lateral ?Akinetic ? [place]-Inferior ? Akinetic ? [place]-Tip ?Akinetic ? This report has been electronically signed by: Bryan Birmingham MD ? 02/05/2021 16:12:13 Images reviewed and interpretation verified [facility] Cardiac Ultrasound Laboratory Procedure Note Bryan Birmingham MD - 02/05/2021 Procedure: Transthoracic Echocardiogram Patient: AMISHA SALAZAR(Age): 1955(65y) Med Rec#: [id number] Sex: F Site Loc: [facility] Ht / Wt: 160(cm)/94(kg) Pt. Loc: Adult Floor BSA: 1.96 Study Date: 02/05/2021 Pt. Type: Inpatient Tape: Referring: [place] Referring: Brittny Woods Reading: Bryan Birmingham ([id number]) Security Installer: Deysi Moore Diagnosis: *Chronic diastolic (congestive) heart [...] MV E-wave Vmax 1.74 m/sec MV deceleration [id number] msec MV A-wave Vmax 1.87 m/sec MV [...] Hypokinetic Mid-Posterolateral Normal Mid-Inferior Hypokinetic Mid-Inferoseptal Hypokinetic [place]-Septal Akinetic [place]-Anterior Akinetic [place]-Lateral Akinetic [place]-Inferior Akinetic [place]-Tip Akinetic This report has been electronically signed by: Bryan Birmingham MD 02/05/2021 16:12:13 Images reviewed and interpretation verified [facility] Cardiac Ultrasound Laboratory Brittny Woods MD ECHO ORDERABLES * (ABNORMAL) Magnesium (02/05/2021 3:10 PM EDT) Magnesium 0.61(L) 0.69 - 1.07 mmol/L [facility] Blood specimen (specimen) 02/05/2021 3:10 PM EDT 02/05/2021 3:30 PM EDT Narrative Resulting Agency Comment Spec In Lab Travis Callahan MD CHEMISTRY ORDERABLES [facility] [place] [address] * (ABNORMAL) BMP w/fasting Glucose (02/05/2021 3:10 PM EDT) Glucose Fasting 175(H) 65 - 99 mg/dL [facility] Comment: ?Fasting* Glucose Interpretive Criteria [...] of Diabetes Mellitus, Position Statement from the [place] [employer]. ??Diabetes Care, Volume 33, Supplement 1, Oct 2009 BUN 23(H) 8 - 18 mg/dL [facility] Creatinine 1.28(H) 0.70 - 1.20 mg/dL [facility] Sodium 133(L) 135 - 145 mmol/L [facility] Potassium 3.6 3.5 - 5.0 mmol/L [facility] Comment: Please note: ??Patients with WBC >100,000 may have falsely elevated Potassium levels. ??For accurate Potassium quantification in these patients send serum separator tube (gold top) for subsequent determinations. ??Contact the Clinical Chemistry Laboratory if there are any questions. Chloride 94(L) 98 - 107 mmol/L [facility] CO2 26 22 - 31 mmol/L [facility] Anion Gap 13 5 - 15 mmol/L [facility] Calcium 8.4(L) 8.5 - 10.5 mg/dL [facility] Estimated GFR 43(L) >=60 mL/min/1. 73 m?? [facility] Comment: This patient? s estimated [...] Callahan MD CHEMISTRY ORDERABLES Performing Organization Address [facility]/ZIP Co de Phone Number [facility] [place] [address] * POCT Glucose (02/05/2021 11:35 AM EDT) POC Glucose 122 65 - 199 mg/dL [facility] Comment: Supplemental ranges: <140 mg/dL before meals <180 mg/dL all other times of the day Blood specimen (specimen) 02/05/2021 11:35 AM EDT 02/05/2021 11:35 AM EDT Travis Callahan MD POINT OF CARE TEST O RDERABLES Performing Organization Address City/[facility]/ZIP Co de Phone Number [facility] [place] [address] * POCT Glucose (02/05/2021 7:22 AM EDT) Pathologist [facility] POC Glucose 189 65 - 199 mg/dL [facility] Comment: Supplemental ranges: <140 mg/dL before meals <180 mg/dL all other times of the day Blood specimen (specimen) 02/05/2021 7:22 AM EDT 02/05/2021 7:22 AM EDT Travis Callahan MD POINT OF CARE TEST O RDERABLES [facility] [place] [address] * (ABNORMAL) Differential, Automated (02/05/2021 6:10 AM EDT) Pathologist [facility] Neutrophils % 87.8 % [facility] Neutr Abs (ANC) 16.92(H) 1.70 - 6.10 x10(3)/[facility] LABORATORY Lymphocytes % 5.3 % [facility] Lymphocytes Abs 1.0 0.9 - 3.2 x10(3)/[facility] LABORATORY Monocytes % 5.4 % [facility] Monocyte Abs 1.0(H) 0.3 - 0.9 x10(3)/[facility] LABORATORY Eosinophils % 0.3 % [facility] Eosinophils Abs 0.1 0.0 - 0.4 x10(3)/[facility] LABORATORY Basophils % 0.2 % [facility] Basophils Abs 0.0 0.0 - 0.1 x10(3)/[facility] LABORATORY Immature Gran % 1.00 % [facility] Comment: Immature granulocytes(IG's)percentage and absolute count will include metamyelocytes, myelocytes, and promyelocytes. Blood smears from CBCs yielding IG's will be scanned manually for concordance. If this scan disagrees with the automated IG or if promyelocytes are noted, a manual differential will be performed. Anya Gran Abs 0.19(H) 0.00 - 0.04 x10(3)/ L [facility] Blood specimen (specimen) 02/05/2021 6:10 AM EDT 02/05/2021 6:24 AM EDT Narrative Resulting Agency Comment Spec In Lab Bibiana Yarbrough MD HEMATOLOGY ORDERABLE S Performing Organization Address City/State/[facility] Co de Phone Number [facility] [place] [address] * (ABNORMAL) Hemogram (02/05/2021 6:10 AM EDT) WBC 19.3(H) 4.0 - 9.5 x10(3)/[facility] LABORATORY RBC 3.40(L) 4.00 - 5.21 x10(6)/[facility] LABORATORY Hemoglobin 10.3(L) 11.7 - 15.5 gm/dL [facility] Hematocrit 30.6(L) 35.7 - 45.8 % [facility] MCV 90.0 82.6 - 94.4 [facility] LABORATORY MCH 30.3 27.1 - 32.0 pg [facility] MCHC 33.7 31.7 - 35.0 gm/dL [facility] Platelets 279 145 - 357 x10(3)/[facility] LABORATORY RDWSD 47.8(H) 37.0 - 46.0 [facility] LABORATORY RDWCV 14.6(H) 11.5 - 14.1 % [facility] MPV 11.8 7.6 - 12.9 [facility] LABORATORY nRBC % Auto 0.0 % [facility] nRBC Abs Auto 0.000 0.000 - 0.000 x10(3)/[facility] LABORATORY Blood specimen (specimen) 02/05/2021 6:10 AM EDT 02/05/2021 6:24 AM EDT Narrative Resulting Agency Comment Spec In Lab Bibiana Yarbrough MD HEMATOLOGY ORDERABLE S Performing Organization Address City/[facility]/ZIP Co de Phone Number [facility] [place] [address] * (ABNORMAL) Troponin (02/05/2021 6:10 AM EDT) Troponin-T 0.03(H) 0.00 - 0.00 ng/mL [facility] Comment: The 99th percentile for Troponin T is less than 0.01 ng/mL, any detectable cTnT concentration using this assay should be considered elevated. According to the third universal definition of myocardial infarction the following criteria with a clinical presentation consistent with acute myocardial ischemia meets the diagnosis for a myocardial infarction (MA). Detection of a rise and/or fall of cTnT, with at least one value greater than the 99th percentile (> or = 0.01) and with at least one of the following ?? Symptoms of ischemia ?? New or presumed new significant PB-wqtepdm-J wave (ST-T) changes or new left bundle [...] additional sample may be indicated. Reference: Third [place] Definition of Myocardial Infarction. Journal of the [place] [employer] 2012;60:1581-98 Blood specimen (specimen) 02/05/2021 6:10 AM EDT 02/05/2021 6:25 AM EDT Narrative Resulting Agency Comment Spec In Lab Brittny Woods MD CHEMISTRY ORDERABLES Performing Organization Address [facility]/ZIP Co de Phone Number [facility] [place] [address] * (ABNORMAL) BMP w/fasting Glucose (02/05/2021 6:10 AM EDT) Glucose Fasting 146(H) 65 - 99 mg/dL [facility] Comment: ?Fasting* Glucose Interpretive Criteria [...] of Diabetes Mellitus, Position Statement from the [place] [employer]. ??Diabetes Care, Volume 33, Supplement 1, Oct 2009 BUN 23(H) 8 - 18 mg/dL [facility] Creatinine 1.21(H) 0.70 - 1.20 mg/dL [facility] Sodium 135 135 - 145 mmol/L [facility] Potassium 4.0 3.5 - 5.0 mmol/L [facility] Comment: Please note: ??Patients with WBC >100,000 may have falsely elevated Potassium levels. ??For accurate Potassium quantification in these patients send serum separator tube (gold top) for subsequent determinations. ??Contact the Clinical Chemistry Laboratory if there are any questions. Chloride 99 98 - 107 mmol/L [facility] CO2 25 22 - 31 mmol/L [facility] Anion Gap 11 5 - 15 mmol/L [facility] Calcium 8.5 8.5 - 10.5 mg/dL [facility] Estimated GFR 46(L) >=60 mL/min/1. 73 m?? [facility] Comment: This patient? s estimated [...] Woods MD CHEMISTRY ORDERABLES Performing Organization Address City/[facility]/ZIP Co de Phone Number [facility] [place] [address] * Blood culture (02/04/2021 11:55 PM EDT) Blood Culture No growth at 5 days. [facility] Blood specimen (specimen) 02/04/2021 11:55 PM EDT 02/05/2021 2:20 AM EDT Comment:RIGHT Narrative Resulting Agency Comment Spec In Lab Theodore Guerrero Walter HULL MICROBIOLOGY - BLOOD ORDERABLES Performing Organization Address City/[facility] Co de Phone Number [facility] [place] [address] * Blood culture (02/04/2021 11:50 PM EDT) Blood Culture No growth at 5 days. [facility] Blood specimen (specimen) 02/04/2021 11:50 PM EDT 02/05/2021 2:19 AM EDT Comment:LEFT Narrative Resulting Agency Comment Spec In Lab Theodore Guerrero Walter HULL MICROBIOLOGY - BLOOD ORDERABLES Performing Organization Address [facility]/ZIP Co de Phone Number [facility] [place] [address] * COVID-19 PCR (02/04/2021 10:28 PM EDT) SARS-CoV-2 RNA PCR Not Detected Not Detected [facility] Comment: This result should be [...] using the Simplexa COVID-19 Direct Assay by [employer] as authorized by the FDA issued Emergency [...] Department of Pathology and Laboratory Medicine at [facility], certified under the Clinical Laboratory Improvement [...] fact sheets at the following FDA website: https://www.fda.gov/medical-devices/ghiisfqfvux-bomwwgy-0211-axlke-51-ifrurtlaz- use-a siarrbzqwviom-pewneeg-mnvdiyc/aylrc-zfhcwhgnist-ekhc SARS-CoV-2 Source CLIENT ENGAGEMENT MANAGER Swab MA [facility] Nasopharyngeal swab (specimen) 02/04/2021 10:28 PM EDT 02/04/2021 10:58 PM EDT Comment:Symptoms->Surveillan ce Narrative Resulting Agency Comment Spec In Lab Theodore Guerrero Walter HULL MICROBIOLOGY - GENER AL ORDERABLES Performing Organization Address [facility]/ZIP Co de Phone Number [facility] [place] [address] * Urine Hold (02/04/2021 10:26 PM EDT) Urine Hold Sample in lab. [facility] Urine specimen (specimen) Urine / Unknown 02/04/2021 10:26 PM EDT 02/04/2021 10:41 PM EDT Theodore Guerrero Walter HULL URINE ORDERABLES Performing Organization Address [facility] Co de Phone Number [facility] [place] [address] * (ABNORMAL) _Urinalysis with microscopic (02/04/2021 10:26 PM EDT) Glucose UA Negative Negative mg/dL [facility] Protein UA Negative Negative mg/dL [facility] Bilirubin UA Negative Negative mg/dL [facility] Comment: Clinical correlation required for positive Urine Bilirubin results as false positive may occur with some drugs and drug related products. If a false positive is suspected a serum total bilirubin should be considered if clinically indicated. Urobilinogen UA Normal Normal mg/dL M [facility] pH UA 6.0 5.0 - 8.0 [facility] Blood UA Small(A) Negative mg/dL [facility] Ketones UA Negative Negative mg/dL [facility] Nitrite UA Negative Negative [facility] Leukocytes UA Negative Negative mcL [facility] Appearance UA Clear Clear [facility] Spec Mclean UA 1.012 1.006 - 1.030 [facility] Color UA Yellow Yellow [facility] RBC UA 4 0 - 4 /HPF [facility] WBC UA 0 0 - 5 /HPF [facility] Squam Epith UA 1 <=4 /HPF [facility] Hyaline Cast UA 5(H) 0 - 2 /LPF [facility] Urine specimen (specimen) 02/04/2021 10:26 PM EDT 02/04/2021 10:40 PM EDT Narrative Resulting Agency Comment Spec In Lab Theodore Watson APRN URINE ORDERABLES Performing Organization Address [facility]/ZIP Co de Phone Number [facility] [place] [address] * (ABNORMAL) pro-Brain Natriuretic Peptide (02/04/2021 10:00 PM EDT) ProBNP >35,000(H) <=124 pg/mL [facility] Blood specimen (specimen) Venous Draw / Unknown 02/04/2021 10:00 PM EDT 02/04/2021 10:08 PM EDT Narrative Resulting Agency Comment Spec In Lab Bibiana Yarbrough MD CHEMISTRY ORDERABLES Performing Organization Address [facility]/ZIP Co de Phone Number [facility] [place] [address] * Type and Screen Validity (02/04/2021 10:00 PM EDT) T&S only valid at [facility] LABORATORY Comment:This Type and Screen result is only valid at the [facility] Blood specimen (specimen) 02/04/2021 10:00 PM EDT 02/04/2021 10:08 PM EDT Narrative Resulting Agency Comment Spec In Lab Theodore Watson APRN BLOOD BANK LAB ORDER MÓNICA [facility] [place] [address] * (ABNORMAL) Troponin (02/04/2021 10:00 PM EDT) Pathologist [facility] Troponin-T 0.03(H) 0.00 - 0.00 ng/mL [facility] Comment: The 99th percentile for Troponin T is less than 0.01 ng/mL, any detectable cTnT concentration using this assay should be considered elevated. According to the third universal definition of myocardial infarction the following criteria with a clinical presentation consistent with acute myocardial ischemia meets the diagnosis for a myocardial infarction (MA). Detection of a rise and/or fall of cTnT, with at least one value greater than the 99th percentile (> or = 0.01) and with at least one of the following ?? Symptoms of ischemia ?? New or presumed new significant EI-nghrqyy-M wave (ST-T) changes or new left bundle [...] additional sample may be indicated. Reference: Third [place] Definition of Myocardial Infarction. Journal of the [place] [employer] 2012;60:1581-98 Blood specimen (specimen) Venous Draw / Unknown 02/04/2021 10:00 PM EDT 02/04/2021 10:08 PM EDT Narrative Resulting Agency Comment Spec In Lab Aaron Barry MD CHEMISTRY ORDERABLES [facility] [place] [address] * ABORH Recheck Status (02/04/2021 10:00 PM EDT) Pathologist [facility] ABORH Type Recheck Completed [facility] Blood specimen (specimen) 02/04/2021 10:00 PM EDT 02/04/2021 10:08 PM EDT Narrative Resulting Agency Comment Spec In Lab Theodore Watson APRN BLOOD BANK LAB ORDER MÓNICA Performing Organization Address City/[facility]/ZIP Co de Phone Number [facility] [place] [address] * Antibody screen (02/04/2021 10:00 PM EDT) Ab Screen Interp Negative [facility] Expires at [id number] on: 02/07/2021 [facility] Blood specimen (specimen) 02/04/2021 10:00 PM EDT 02/04/2021 10:08 PM EDT Narrative Resulting Agency Comment Spec In Lab Theodore Watson APRN BLOOD BANK LAB ORDER MÓNICA Performing Organization Address City/[facility]/ZIP Co de Phone Number [facility] [place] [address] * ABO/Rh Typing (02/04/2021 10:00 PM EDT) ABORH Type O Pos [facility] Blood specimen (specimen) 02/04/2021 10:00 PM EDT 02/04/2021 10:08 PM EDT Narrative Resulting Agency Comment Spec In Lab Theodore Watson APRN BLOOD BANK LAB ORDER MÓNICA Performing Organization Address City/[facility]/ZIP Co de Phone Number [facility] [place] [address] * (ABNORMAL) Differential, Automated (02/04/2021 10:00 PM EDT) Neutrophils % 88.3 % [facility] Neutr Abs (ANC) 15.73(H) 1.70 - 6.10 x10(3)/mc L [facility] Lymphocytes % 4.4 % [facility] Lymphocytes Abs 0.8(L) 0.9 - 3.2 x10(3)/mc L [facility] Monocytes % 5.3 % [facility] Monocyte Abs 0.9 0.3 - 0.9 x10(3)/[facility] LABORATORY Eosinophils % 0.4 % [facility] Eosinophils Abs 0.1 0.0 - 0.4 x10(3)/[facility] LABORATORY Basophils % 0.4 % [facility] Basophils Abs 0.1 0.0 - 0.1 x10(3)/[facility] LABORATORY Immature Gran % 1.20 % [facility] Comment: Immature granulocytes(IG's)percentage and absolute count will include metamyelocytes, myelocytes, and promyelocytes. Blood smears from CBCs yielding IG's will be scanned manually for concordance. If this scan disagrees with the automated IG or if promyelocytes are noted, a manual differential will be performed. Anya Gran Abs 0.21(H) 0.00 - 0.04 x10(3)/[facility] [facility] Blood specimen (specimen) 02/04/2021 10:00 PM EDT 02/04/2021 10:06 PM EDT Narrative Resulting Agency Comment Spec In Lab Theodore Watson AUT[employer]OR MECHANIC HEMATOLOGY ORDERABLE S [facility] [place] [address] * (ABNORMAL) Hemogram (02/04/2021 10:00 PM EDT) WBC 17.8(H) 4.0 - 9.5 x10(3)/[facility] RBC 3.30(L) 4.00 - 5.21 x10(6)/[facility] Hemoglobin 9.9(L) 11.7 - 15.5 gm/dL [facility] Hematocrit 30.6(L) 35.7 - 45.8 % [facility] MCV 92.7 82.6 - 94.4 fL [facility] Comment: Patient Transfused.. This result has been called to NOT CALLED by Alyssa Garcia on 02 04 2021 at 2230, and has not been read back. MCH 30.0 27.1 - 32.0 pg [facility] MCHC 32.4 31.7 - 35.0 gm/dL [facility] Platelets 246 145 - 357 x10(3)/[facility] RDWSD 49.1(H) 37.0 - 46.0 fL [facility] RDWCV 14.4(H) 11.5 - 14.1 % [facility] MPV 11.5 7.6 - 12.9 fL [facility] nRBC % Auto 0.0 % [facility] nRBC Abs Auto 0.000 0.000 - 0.000 x10(3)/[facility] Blood specimen (specimen) 02/04/2021 10:00 PM EDT 02/04/2021 10:06 PM EDT Narrative Resulting Agency Comment Spec In Lab Theodore Watson [employer] HEMATOLOGY ORDERABLE S [facility] [place] [address] * (ABNORMAL) CMP w/fasting Glucose (02/04/2021 10:00 PM EDT) Glucose Fasting 143(H) 65 - 99 mg/dL [facility] Comment: ?Fasting* Glucose Interpretive Criteria [...] of Diabetes Mellitus, Position Statement from the [place] [employer]. ??Diabetes Care, Volume 33, Supplement 1, Oct 2009 BUN 24(H) 8 - 18 mg/dL [facility] Creatinine 1.29(H) 0.70 - 1.20 mg/dL [facility] Sodium 137 135 - 145 mmol/L [facility] Potassium 4.2 3.5 - 5.0 mmol/L [facility] Comment: Please note: ??Patients with WBC >100,000 may have falsely elevated Potassium levels. ??For accurate Potassium quantification in these patients send serum separator tube (gold top) for subsequent determinations. ??Contact the Clinical Chemistry Laboratory if there are any questions. Chloride 101 98 - 107 mmol/L [facility] CO2 26 22 - 31 mmol/L [facility] Anion Gap 10 5 - 15 mmol/L [facility] Calcium 8.4(L) 8.5 - 10.5 mg/dL [facility] Total Protein 6.8 6.1 - 8.0 gm/dL [facility] Albumin 2.3(L) 3.2 - 5.2 gm/dL [facility] AST 34(H) 0 - 30 unit/L [facility] ALT 26 0 - 30 unit/L [facility] Alk Phos 222(H) 35 - 105 unit/L [facility] Total Bilirubin 0.6 0.2 - 1.3 mg/dL [facility] Estimated GFR 43(L) >=60 mL/min/1. 73 m?? [facility] Comment: This patient? s estimated [...] Watson APRN CHEMISTRY ORDERABLES Performing Organization Address [facility] Co de Phone Number [facility] [place] [address] * APTT (02/04/2021 10:00 PM EDT) PTT 29 25 - 37 sec [facility] Comment: The PTT is NOT appropriate for heparin monitoring. Use the Anti-Xa level for heparin monitoring (HEP UFH) or LMWH monitoring (HEP LMW). A PTT less than 37 seconds generally indicates adequate hemostasis. Blood specimen (specimen) 02/04/2021 10:00 PM EDT 02/04/2021 10:06 PM EDT Narrative Resulting Agency Comment Spec In Lab Theodore Watson APRN HEMATOLOGY ORDERABLE S Performing Organization Address [facility] de Phone Number [facility] [place] [address] * (ABNORMAL) Prothrombin Time (02/04/2021 10:00 PM EDT) PT 13.6(H) 9.4 - 12.5 sec [facility] INR 1.2 [facility] Comment: An INR [...] Agency Comment Spec In Lab Theodore Watson [employer]IC HEMATOLOGY ORDERABLE S Performing Organization Address [facility] Co de Phone Number [facility] [place] [address] * EKG 12 Lead (02/04/2021 9:38 PM EDT) Ventricular rate 98 BPM MUSE SYSTEM Atrial Rate 98 BPM MUSE SYSTEM P-R Interval 214 ms MUSE SYSTEM QRS Duration 82 ms MUSE SYSTEM Q-T Interval 400 ms MUSE SYSTEM QTC Calculated (Bezet) 510 ms MUSE SYSTEM Calculated P [place] 43 degrees MUSE SYSTEM Calculated R [place] 52 degrees MUSE SYSTEM Calculated T [place] -176 degrees MUSE SYSTEM INTERPRETATION Sinus rhythm [...] Woods MD ECG ORDERABLES Performing Organization Address [facility] de Phone Number MUSE SYSTEM * POCT Glucose (02/04/2021 9:04 PM EDT) POC Glucose 139 65 - 199 mg/dL [facility] Comment: Supplemental ranges: <140 mg/dL before meals <180 mg/dL all other times of the day Blood specimen (specimen) 02/04/2021 9:04 PM EDT 02/04/2021 9:04 PM EDT Brittny Woods MD POINT OF CARE TEST O RDERABLES Performing Organization Address [facility] Co de Phone Number [facility] [place] [address] documented in this encounter Visit Diagnoses Not on filedocumented in this encounter Admitting Diagnoses Diagnosis Pancreatitis [...] AM EDT 650 mg aspirin chewable tablet 81 mg 81 mg, Oral, DAILY, First dose on Wed02/06/21 at 1645, Until Discontinued, Routine Given 02/13/2021 8:24 AM EDT 81 mg Given 02/12/2021 9:03 AM EDT 81 mg Given 02/11/2021 8:13 AM EDT 81 mg atorvastatin (Lipitor) tablet 80 mg 80 [...] the active insulin. DULoxetine DR (Cymbalta) capsule 60 mg 60 mg, Oral, DAILY, First dose on Wed02/06/21 at 0900, Until Discontinued, Routine Given 02/13/2021 8:25 AM EDT 60 mg Given 02/12/2021 9:02 AM EDT 60 mg Given 02/11/2021 8:13 AM EDT 60 mg fentaNYL (pf) (50 mcg/mL) multi-dose injection ONCE PRN, Starting on Wed02/07/21 at 1438, Until Wed02/07/21 at 1522, Intra-Operative (Intra-Procedure), Routine Given 02/07/2021 2:38 PM EDT 25 mcg Left Arm gabapentin (Neurontin) capsule 100 mg 100 mg, [...] tube = 37.5 grams., Routine heparin (porcine) (1,000 units/mL) injection ONCE PRN, Starting on Wed02/07/21 at 1441, Until Wed02/07/21 at 1522, Cath (Intra-Procedure), Routine Given 02/07/2021 2:41 PM EDT 5,000 Units Left Arm heparin (porcine) (5,000 units/1 mL) subcutaneous injection [...] Given 02/12/2021 11:46 AM EDT 1 Units iohexoL (Omnipaque) (350 mg/mL) injection solution ONCE PRN, Starting on Wed02/07/21 at 1521, Until Wed02/07/21 at 1522, Cath (Intra-Procedure), Routine Given 02/07/2021 3:21 PM EDT 75 mLs lidocaine (Xylocaine) 1% (10 mg/mL) injection ONCE PRN, Starting on Wed02/07/21 at 1436, Until Wed02/07/21 at 1522, Cath (Intra-Procedure), Routine Given 02/07/2021 2:36 PM EDT 3 mLs Right Arm losartan (Cozaar) tablet 25 mg 25 mg, [...] Given 02/12/2021 9:03 AM EDT 400 mg melatonin tablet 9 mg 9 mg, Oral, NIGHTLY, First dose on Wed02/07/21 at 2100, Until Discontinued, Routine Given 02/12/2021 9:38 PM EDT 9 mg Given 02/11/2021 8:34 PM EDT 9 mg Given 02/10/2021 9:01 PM EDT 9 mg metoprolol tartrate (Lopressor) tablet 25 mg 25 mg, Oral, EVERY 12 HOURS SCHEDULED (2 times per day), First dose (after last modification) on Wed02/11/21 at 0900, Until Discontinued, Please hold for HR < 60, SBP < 90. Thank you, Routine Given 02/13/2021 8:25 AM EDT 25 mg Given 02/12/2021 9:38 PM EDT 25 mg Given 02/12/2021 9:09 AM EDT 25 mg midazolam (pf) (Versed) (1 mg/mL) multi-dose injection ONCE PRN, Starting on Wed02/07/21 at 1438, Until Wed02/07/21 at 1522, Cath (Intra-Procedure), Routine Given 02/07/2021 2:38 PM EDT 1 mg Left Arm niCARdipine (Cardene) (100 mcg/mL) dilution (SHINGLES ROOFER) ONCE PRN, Starting on Wed02/07/21 at 1508, Until Wed02/07/21 at 1522, Intra-Operative (Intra-Procedure), Routine Given 02/07/2021 3:08 PM EDT 200 mcg nitroGLYcerin 100 mcg/mL intracoronary dilution ONCE PRN, Starting on Wed02/07/21 at 1438, Until Wed02/07/21 at 1522, Cath (Intra-Procedure), Routine Given 02/07/2021 2:38 PM EDT 150 mcg ondansetron ODT (Zofran-ODT) disintegrating tablet 4 mg [...] Given 02/11/2021 8:13 AM EDT 40 mg polyethylene glycoL (Miralax) packet 17 g 17 g, Oral, DAILY PRN, Starting on Wed02/07/21 at 1056, Until Wed02/13/21 at 1506, Constipation, Routine sodium chloride 0.9 % (flush) flush 5 [...] 2308, Until Wed02/13/21 at 1506, Nausea, Routine verapamiL (Isoptin) (2.5 mg/mL) injection ONCE PRN, Starting on Wed02/07/21 at 1438, Until Wed02/07/21 at 1522, Administer over 2 Minutes, Cath (Intra-Procedure) Given 02/07/2021 2:38 PM EDT 2.5 mg documented in this [...] you, Routine 0525 (Given - Provider: Leeanna Suarez RN)1119 (Given - Provider: Blanca Malcolm, RODERICK)1716 (Given - Provider: Blanca Malcolm RN) gabapentin [...] 0824 (Given - Provider: Cindy Cervantes, RODERICK) heparin (porcine) (5,000 units/1 mL) subcutaneous injection 5,000 Units 5,000 Units, Subcutaneous, EVERY 8 HOURS SCHEDULED, First dose on Wed02/04/21 at 2200, Until Discontinued, Routine 0526 (Given - Provider: Leeanna Suarez RN)1410 (Given - Provider: Blanca Malcolm RN)2207 (Given - Provider: Laura Desai RN) 0506 (Given - Provider: Laura Desai, RODERICK)1432 (Given - Provider: Vin Hart RN)2138 (Given [...] - Provider: Shayy Ashley RN - Comment: [id number]) 0730 (Not Given - Provider: Shayy Ashley RN - Reason: Order parameters not met - Comment: [id number])1155 (Given - Provider: Cindy Cervantes RN) losartan [...] RN) 0903 (Given - Provider: Vin Hart RN)2137 (Given - Provider: Shayy Ashley, RN) 08 (Given - Provider: Cindy Cervantes, RODERICK) magnesium sulfate 2 g in sterile water 50 mL infusion (COMPLETED) 2 g, Intravenous, ONCE, 1 dose, On Wed02/11/21 at 0745, Administer over 120 Minutes 0752 (New Bag - Provider: Blanca Malcolm, RN)1010 (Stopped - Provider: Blanca Malcolm, RODERICK) magnesium [...] Cindy Cervantes RN)1024 (Stopped - Provider: Cindy Cervantes, RODERICK) melatonin tablet 9 mg 9 mg, Oral, NIGHTLY, First dose on Wed02/07/21 at 2100, Until Discontinued, Routine 2033 (Given - Provider: Laura Desai RN) 2137 (Given - Provider: Shayy Ashley, RODERICK) metoprolol tartrate (Lopressor) tablet 25 mg 25 [...] Vin Hart RN)2137 (Given - Provider: Shayy Ashley, RODERICK) 08 (Given - Provider: Cindy Cervantes, RODERICK) pantoprazole EC (Protonix) tablet 40 mg 40 mg, Oral, DAILY, First dose on Wed02/05/21 at 0900, Until Discontinued, DO NOT CRUSH OR OPEN 0813 (Given - Provider: Nora Judge LPN) 0903 (Given - Provider: Vin Hart RN) 0825 (Given - Provider: Cindy Cervantes RN) sodium chloride 0.9 % (flush) flush 5 mL 5 mL, Intravenous, 2 TIMES DAILY, First dose on Wed02/04/21 at 2200, Until Discontinued, Routine 0826 (Given - Provider: Blanca Malcolm RN)203 (Given - Provider: Laura Desai RN) 09 [...] 0825 (Given - Provider: Cindy Cervantes, RODERICK) traZODone (Desyrel) tablet 50 mg 50 mg, Oral, NIGHTLY, First dose on Wed02/10/21 at 2100, Until Discontinued, Routine 2033 (Given - Provider: Laura Desai, RODERICK) 2139 (Given - Provider: Shayy Ashley, RN) PRN Medication Order 02/11/2021 02/12/2021 02/13/2021 acetaminophen (Tylenol) tablet 650 mg 650 mg, Oral, EVERY 6 HOURS PRN, Starting on Wed02/04/21 at 2152, Until Jodee 02/13/21 at 1506, Pain, Maximum dose of acetaminophen is 4000 mg from all sources in 24 hours. When ordered for pain, acetaminophen should be given even when other ordered pain medications are indicated. , Routine 912 (Given - Provider: Vin Hart RN) calcium carbonate (Tums) chewable tablet 500-1,000 mg 500-1,000 mg, Oral, 2 TIMES DAILY PRN, Starting on Wed02/07/21 at 2309, Until Jodee 02/13/21 at 1506, Heartburn, Give 500 mg (1 tablet) for mild to moderate heartburn. Give 1,000 mg (2 tablets) for severe heartburn., Routine dextrose 10% infusion(Linked Group 2) 250 mL, at 1,000 mL/hr, Intravenous, EVERY 30 MIN PRN, Starting on Wed02/05/21 at 0106, Until Jodee 02/13/21 at 1506, For BG 50-70 mg/dL: Oral [...] Nausea, Routine 2034 (Given - Provider: Laura Desai, RODERICK) oxyCODONE (Roxicodone) tablet 5 mg 5 mg, Oral, EVERY 4 HOURS PRN, Starting on Wed02/04/21 at 2310, Until Wed02/13/21 at 1506, Pain, Routine 1119 (Given - Provider: Blanca Malcolm, RN)2032 (Given - Provider: Laura Desai, RODERICK) 1049 (Given - Provider: Vin Hart RN)2207 (Given - Provider: Shayy Ashley RN) polyethylene glycoL (Miralax) packet 17 g [...] at 0106, Until Jodee 02/13/21 at 1506, For BG 50-70 mg/dL: Oral [...] Routine documented in this encounter Care Teams [employer] Contact Printer Relationship Specialty Start Date End Date Asia Gil DO [address] [place] [address] PCP - General Family Medicine 07/09/20 documented as of this encounter
--- OUTSIDE RECORDS SUMMARY | 2024-05-02 12:11 | XMS_ITS | Encounter Summary ---
[place] [address] Care Team Providers Care Hand Pattern Marker Name Role Phone Angelibrahima Asiarafaela Dunn DO Primary Care Provider [phone] Encounter Details Date Type Department Care Team (Late st Contact Info) Description 02/04/2021 3:05 PM EDT Ancillary Procedure [place] [address] Brittny Woods MD [facility] [place] [address] Social History Tobacco Use Types [...] 10:30 AM EDT Hospital Encounter [place] [phone] Bk Contreras MD [facility] [place] [address] 05/08/2024 10:30 AM EDT - 05/08/2024 11:00 AM EDT Surgery Pain Management [place] [phone] Bk Contreras MD [facility] [place] [address] INJECTION, ANESTHETIC AGENT AND/OR STEROID, TRANSFORAMINAL EPIDURAL, LUMBAR OR SACRAL, SINGLE LEVEL (WRVU 1.9) 05/12/2024 1:00 PM EDT Office [place] [address] Sadi Styles MD [facility] [place] [address] 05/29/2024 10:15 AM EDT TH Visit (TeleHealth) [facility] [place] [phone] Natalee Sanchez APRN [facility] [place] [address] Scheduled Procedures Name Priority Associated Diagnoses Date/Ti me INJECTION, ANESTHETIC AGENT AND/OR STEROID, TRANSFORAMINAL EPIDURAL, LUMBAR OR SACRAL, SINGLE LEVEL (WRVU 1.9) Left lumbar radiculopathy 05/08/2024 10:30 AM EDT documented as of this encounter Procedures Procedure Name Priority Date/Time Associated Diagnosis Comments FILM LIBRARY STORAGE ONLY ULTRASOUND STUDY Routine 02/04/2021 2:51 PM EDT documented in this encounter Results * Film Library- Storage Only Ultrasound Study (02/04/2021 2:51 PM EDT) Narrative [facility] - 02/04/2021 2:51 PM EDT This exam is auto-finalizing. It's purpose is for storage only. Brittny Woods MD IMG FILM LIBRARY ORD ERABLES [facility] [place], [place] documented in this encounter Visit Diagnoses Not on filedocumented in this encounter Care Teams Hand Pattern Marker Relationship Specialty Start Date End Date Asia Gil DO [address] [place] [address] PCP - General Family Medicine 07/09/20 documented as of this encounter
--- OUTSIDE RECORDS SUMMARY | 2024-05-02 12:12 | XMS_ITS | Encounter Summary ---
Author Organization [facility] Address [facility] [place] [address] Care Team Providers Care Sewer Head Name Role Phone Asia Gil DO Primary Care Provider [phone] Reason for Visit * Auth/Cert Specialty Diagnoses / Procedures Referred By Contac t Referred To Contact Diagnoses Chronic RUQ/R flank pain. Hx of CCY. Found to have stone in cystic duct v infundibulum on recent RUQ U/S. Procedures PRO ERCP,DIAGNOSTIC ERCP Referral ID Status Reason Start Date Expiration Date Visits Re quested Visits Authorized [id number] 1 1 Encounter Details Date Type Department Care Team (Latest Contact Info) Description 01/17/2021 9:37 AM EDT - 01/27/2021 1:08 PM EDT Hospital Encounter 1 [place] [address] Eliel Leigh MD [facility] [place] [address] [place] [address] [place] [address] [place] [address] Cystic duct calculus; RUQ pain; Chest pain, unspecified type; GERD (gastroesophageal reflux disease); Other acute pancreatitis without infection or necrosis Discharge Disposition: Home Social History Tobacco [...] Sign Reading Time Taken Comments Blood Pressure 137/53 01/27/2021 8:19 AM EDT Pulse 88 01/27/2021 4:18 AM EDT Temperature 36.7 ??C (98.1 ??F) 01/27/2021 8:19 AM ED T Respiratory Rate 17 01/27/2021 8:19 AM EDT Oxygen Saturation 98% 01/27/2021 8:19 AM EDT Inhaled Oxygen Concentration - - Weight 76.7 kg (169 lb) 01/17/2021 10:04 AM EDT Height 158.8 cm (5' 2.5) 01/18/2021 6:50 AM EDT Body Mass Index 30.42 01/17/2021 10:04 AM EDT documented in this encounter Discharge Summaries * Lisa Valles MD - 01/27/2021 12:32 PM EDT Images from the original note were not included. Discharge Summary Patient Name: Toyin Coley Patient Age: 65 y.o. Language: Malay Race: White Ethnicity: Not nor Admit date: 01/17/2021 Discharge date and time: 01/26/2021 Attending Physician: Maxim Motley MD Discharge Physician: Maxim Motley MD Follow-up Recommendations for Providers: - Patient had rising WBC on discharge. Patient was encouraged to stay, but patient decided that herhospital stay had been long enough. Patient agreeable to close follow-up as outpatient and low threshold to visit ED - Held patient's HCTZ in setting of soft blood pressures. Please consider restarting if appropriate. - Per GI, patient will need surgery regarding retained stone. ERCP not completely successful prior to admission. Inpatient Provider Contact Information: For questions regarding this document or issues relating to this hospitalization on the Medical Service, please contact your inpatient physician through the [facility] Beam Machine Operator . Issues afterhours and on weekends will be handled by the Hospitalist staff on-call. Discharge Diagnoses (Hospital Problems) and Secondary Diagnoses (Chronic Problems): Active Hospital Problems Diagnosis ??? Acute pancreatitis ??? Cystic duct calculus ??? RUQ pain Resolved Hospital Problems No resolved problems to display. Active Non-Hospital Problems Diagnosis ??? PONV (postoperative nausea and vomiting) ??? Toxic metabolic encephalopathy ??? Acute cystitis ??? Anxiety ??? Diabetic neuropathy ??? Nonalcoholic steatohepatitis ??? Restless legs syndrome (RLS) ??? CKD (chronic kidney disease) ??? Delirium ??? Hyperlipidemia ??? Hypertension ??? Diabetes mellitus type 2, uncomplicated ??? Hx-TIA (transient ischemic attack) ??? GERD (gastroesophageal reflux disease) ??? Environmental allergies Operations/Major Procedures: Operations: Procedure(s): ERCP 01/17/2021 History of Presentation: Toyin Coley is a 65 y.o. 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 Who is being admitted with concerns of pancreatitis following ERCP. ?? Patient had years-long hx of RUQ and R flank pain despite hx of CCY. Labs unrevealing. Patient underwent recent EGD and colonoscopy (12/25/20)??looking for a source of pain,now s/p??multiple polyps resected. Patient was then referred for?RUQ U/S noting a retained stone in a cystic duct remnant v infundibulum w/ surrounding wall thickening. Patient was taken for ERCP today for retrieval of stone. Following ERCP patient awoke with abdominal pain. ?? She currently described her pain as being punched in the gut and hurts everywhere. She rates it 7/10. Pain is constant. Has not received any medications to help with the pain. Middle of back hurts as well. She has 1x episode of vomiting, without blood. She has a little SOB. She has been oscillating between hot and cold. ?? Denies chest pain, changes in urinary, fever, and chills. ?? Of note, she smokes medical marijuana nightly. Patient denies cigarette smoking, alcohol use, or other drug use. Hospital Course: #Suspected pancreatitis 2/2 to ERCP Patient was admitted following an ERCP to hospital medicine due to abdominal pain. Lipase was elevated and CT a/p was consistent with pancreatitis. Patient was treated with IVF and pain management including tylneol and oxycodone. Patient did not respond initially to this treatment and her WBC uptrended. A CT a/p w/ contrast was completed that was unrevealing. Per GI recs, patient's diet was de-advanced and IVF rate was increased. Patient's abdominal pain resolved and WBC decreased. While waiting for Cr to decrease (as below) patient began experiencing abdominal pain (as below) which resolved with bowel meds. On day prior to discharge patient's WBC was climbing, but no sign of infection were seen. Patient agreed to staying another day to monitor for sings of infection and trend WBC. WBC was down trending on day discharge and patient remained HDS without signs of infection. ?? #Abdominal pain 2/2 constipation, resolved Patient suffered from constipation during her hospitalization. Patient was started on miralax and pericolace with no effect. Added on lactulose and enemas, with little effect. Patient was placed on bowel prep, which resolved her constipation. ? #GETACHEW 2/2 to contrast- resolving Patient developed elevated Cr following CT w/ contrast. Cr peaked at ~2 before down trending to baseline. We encouraged PO intake at this time. Cr bumped up to 1.63 on day of discharge. Patient was given 1L of IVF and repeat Cr was 1.54. Patient will be followed closely by her outpatient provider. ?? #Hypertension Held home lisinopril 10mg and home HCTZ is setting of soft pressures. Restarted lisinopril prior todischarge. Vital Signs at Discharge: BP: 137/53, Heart Rate: 88, Temp: 36.7 ??C (98.1 ??F), Resp: 17, Height: 158.8 cm (5' 2.5) (01/18/21 0650) Weight: 76.7 kg (169 lb) (01/17/21 1004) Functional and Cognitive Status: stable Important Studies and Lab Data: Labs: Last 3 wbc, hgb, hct plt Recent Labs 01/27/21 0335 01/26/21 0423 01/25/21 0435 WBC 18.6* 21.8* 15.2* HGB 9.3* 10.3* 9.9* HCT 27.5* 30.6* 29.3* PLATELET 108* 135* 135* Discharge Conditions/Prognosis: stable Discharge to: home Updated Allergies/ADRs: Allergies Allergen Reactions ??? Benzodiazepines [...] Medications: Your Medications New Medications Dose Details acetaminophen 325 mg Tab Commonly [...] 50 mg Quantity: 30 tablet Refills: 12 * This list has 3 medication(s) that are the same as other medications prescribed for you. Read thedirections carefully, and ask your doctor or other care provider to review them with you. Continued medications, unchanged Dose Details lisinopriL 10 mg Tab Commonly known as: Prinivil;Zestril Take 1 tablet by mouth daily. 10 mg Quantity: 90 tablet Refills: 3 mirtazapine 7.5 mg Tab Commonly known as: REMERON Take 7.5 mg by mouth nightly. 7.5 mg Refills: 0 multivitamin Tab Commonly known as: THERAGRAN Take 1 tablet by mouth daily. 1 tablet Refills: 0 pantoprazole EC 40 mg Tbec Commonly known as: Protonix Take 1 tablet by mouth daily. 40 mg Quantity: 90 tablet Refills: 3 STOPPED Medications hydroCHLOROthiazide 25 mg Tab Commonly known as: Hydrodiuril nortriptyline 10 mg Cap Commonly known as: Pamelor Smoking Status at Discharge: Social History Tobacco Use Smoking Status Never Smoker Smokeless Tobacco Never Used Tobacco Comment uses [facility] Instructions Given to Patient at Discharge: Patient Instructions Instruction after leaving the hospital Why you were hospitalized: You came in for an elective ERCP and developed ERCP- related pancreatitis. You had to stay in the hospital for IV fluids and pain management to treat your pancreatitis. Call your doctor or seek medical attention if you develop the following: Call your doctor or seek medical attention if you experience any alarming symptoms. This may include, but is not limited to, fever, chest pain, severe shortness of breath, nausea with vomiting, persistent decrease in your urinary output, severe pain, or any other concerning symptoms. Activity level: As tolerated. Diet: No new restrictions. Please avoid fatty foods and drink plenty of fluids Driving: Please do not drive if you feel lightheaded, dizzy, faint, or taking any opioids/narcotics(i.e oxycodone). It is advisable that you do not drive till you follow-up with your primary care physician. Shower/Bath: No new restrictions. Wound Care: N/A Home Oxygen therapy: N/A Patient Instructions: Please follow-up with your PCP Try to get your labs done before seeing your PCP. You can go to any local lab to get those done Please drink plenty of fluids to stay hydrated Please avoid fatty foods to give your pancreas some time to rest Ask your PCP about a referral to surgery to get rid of the stone that required you to get the ERCP Changes in Your Medications: New Medications: None Medication dose changes: None Stop these medications: None Follow-Up Appointments Date and Time Provider and Specialty Location 01/31/21 @ 11:15AM Asia Gil DO , PCP [address] [place] [address] / [facility] [id number] Your Inpatient Doctor(s) at [facility]: MD Lsia Girard MD Aditya Kulkarni, MD Your Primary Care Provider: Asia Gil DO [address] [facility] / [facility] [address] For questions regarding this document or issues relating to this hospitalization on the Medical Service, please contact your inpatient physician through the [facility] Beam Machine Operator . Issues afterhours and on weekends will be handled by the Hospitalist staff on-call. General Instructions Endoscopic Retrograde Cholangiopancreatogram (ERCP): What to Expect at Home Your Recovery After you have an endoscopic retrograde cholangiopancreatogram (ERCP), you will be able to go home after your doctor or a nurse checks to make sure you are not having any problems. If you stay in thehospital overnight, you may go home the next day. You may have a sore throat for a day or two after the procedure. This care sheet gives you a general idea about how long it will take for you to recover. But each person recovers at a different pace. Follow the steps below to get better as quickly as possible. How can you care for yourself at home? Activity ??? Rest when you feel tired. ?? You can do your normal activities when it feels okay to do so. Diet ?? Follow your doctor's directions for eating. ?? Unless your doctor has told you not to, drink plenty of fluids. ?? Do not drink alcohol. Medicines ?? Your doctor will tell you if and when you can restart your medicines. He or she will also give you instructions about taking any new medicines. ?? If you take blood thinners, such as warfarin (Coumadin), clopidogrel (Plavix), or aspirin, be sure to talk to your doctor. He or she will tell you if and when to start taking those medicines again. Make sure that you understand exactly what your doctor wants you to do. ?? If a sphincterotomy was done during the test, your doctor may tell you not to take aspirin or other anti-inflammatory medicines for a few days. These include ibuprofen (Advil, Motrin) and naproxen(Aleve). ?? If you have a sore throat the day after the procedure, use an xwjp-xrh-sardhce spray to numb your throat. Sucking on throat lozenges and gargling with warm salt water may also help relieve your symptoms. Other instructions ?? For your safety, do not drive or operate machinery until the medicine wears off and you can think clearly. Your doctor may tell you not to drive or operate machinery until the day after your test. ?? Do not sign legal documents or make major decisions until the medicine wears off and you can think clearly. The anesthesia can make it hard for you to fully understand what you are agreeing to. Additional Information for Sedation Patients For patients who received sedation: ?? You may have received medications before and/or during your procedure which effects your judgement and reaction time. ?? Do not drive, operate machinery, drink alcoholic beverages or make important decisions for 24 hours. ?? Be careful on stairs as you may be unsteady on your feet. ?? You may eat a regular diet as tolerated. ?? Do not smoke if you are alone. ?? IV site: Slight redness or tenderness is normal, you can use a warm compress if you would like. If tenderness and/or redness increase or if foul drainage occurs, please contact your Doctor. Please call [phone] before 8pm Mon-Fri with problems, questions or concerns. If you call after 8pm or on weekends, call the Hospital at [phone] and ask to speak to the Fire Sprinkler Designer superintendent transmission and the industrial gas production operator will contact that person for you. When should you call for help? Call 911 anytime you think you may need emergency care. For example, call if: ?? You passed out (lost consciousness). ?? You pass maroon or bloody stools. ?? You have trouble breathing. Call your doctor now or seek immediate medical care if: ?? You have pain that does not get better after you take pain medicine. ?? You are sick to your stomach or cannot drink fluids. ?? You have new or worse belly pain. ?? You have blood in your stools. ?? You have a fever. ?? You cannot pass stools or gas. Watch closely for changes in your health, and be sure to contact your doctor if you have any problems, like Where can you learn more? [facility] View your After Visit Summary and more online at [email or web address] If you would like to provide feedback about your hospital experience, please call the Office of Patient and Family Relations at . If you have received this After Visit Summary in error, please immediately return it in person to the department, or notify the [facility] Privacy Office by calling toll free at between the hours of 8AM and 5PM to arrange for our retrieval of the documents at no cost to you. Content Version: 12.2 ?? 0650-5955 [email or web address]. Care instructions adapted under license by [facility]. If you have questions about a medical condition or this instruction, always ask your healthcare professional. [email or web address] disclaims any warranty or liability for your use of this information. YOU ARE SCHEDULED FOR A FOLLOW UP APPOINTMENT WITH YOUR PRIMARY CARE PROVIDER'S OFFICE ON 01/31/2021T 11:15AM WITH DR AU Future Appointments and Orders Future Orders Complete By Expires Basic Metabolic Panel (non-fasting) [LAB15 Custom] 02/03/2021 (Approximate) 02/26/2021 Process Instructions: Scheduling Instructions: Comments: Questions: CBC (with Diff) [QBL930 Custom] 02/03/2021 (Approximate) 02/26/2021 Process Instructions: Scheduling Instructions: Comments: Questions: Discharge References/Attachments None documented in this encounter Discharge Instructions * Discharge Instructions* Katt Lubin CMA - 01/27/2021 11:04 AM EDT Endoscopic Retrograde Cholangiopancreatogram (ERCP): What to Expect at Home Your Recovery After you have an endoscopic retrograde cholangiopancreatogram (ERCP), you will be able to go home after your doctor or a nurse checks to make sure you are not having any problems. If you stay in thehospital overnight, you may go home the next day. You may have a sore throat for a day or two after the procedure. This care sheet gives you a general idea about how long it will take for you to recover. But each person recovers at a different pace. Follow the steps below to get better as quickly as possible. How can you care for yourself at home? Activity ??? Rest when you feel tired. ?? You can do your normal activities when it feels okay to do so. Diet ?? Follow your doctor's directions for eating. ?? Unless your doctor has told you not to, drink plenty of fluids. ?? Do not drink alcohol. Medicines ?? Your doctor will tell you if and when you can restart your medicines. He or she will also give you instructions about taking any new medicines. ?? If you take blood thinners, such as warfarin (Coumadin), clopidogrel (Plavix), or aspirin, be sure to talk to your doctor. He or she will tell you if and when to start taking those medicines again. Make sure that you understand exactly what your doctor wants you to do. ?? If a sphincterotomy was done during the test, your doctor may tell you not to take aspirin or other anti-inflammatory medicines for a few days. These include ibuprofen (Advil, Motrin) and naproxen(Aleve). ?? If you have a sore throat the day after the procedure, use an vtxc-flf-ijoqcoa spray to numb your throat. Sucking on throat lozenges and gargling with warm salt water may also help relieve your symptoms. Other instructions ?? For your safety, do not drive or operate machinery until the medicine wears off and you can think clearly. Your doctor may tell you not to drive or operate machinery until the day after your test. ?? Do not sign legal documents or make major decisions until the medicine wears off and you can think clearly. The anesthesia can make it hard for you to fully understand what you are agreeing to. Additional Information for Sedation Patients For patients who received sedation: ?? You may have received medications before and/or during your procedure which effects your judgement and reaction time. ?? Do not drive, operate machinery, drink alcoholic beverages or make important decisions for 24 hours. ?? Be careful on stairs as you may be unsteady on your feet. ?? You may eat a regular diet as tolerated. ?? Do not smoke if you are alone. ?? IV site: Slight redness or tenderness is normal, you can use a warm compress if you would like. If tenderness and/or redness increase or if foul drainage occurs, please contact your Doctor. Please call [phone] before 8pm Mon-Fri with problems, questions or concerns. If you call after 8pm or on weekends, call the Hospital at [phone] and ask to speak to the Fire Sprinkler Designer superintendent transmission and the industrial gas production operator will contact that person for you. When should you call for help? Call [phone] anytime you think you may need emergency care. For example, call if: ?? You passed out (lost consciousness). ?? You pass maroon or bloody stools. ?? You have trouble breathing. Call your doctor now or seek immediate medical care if: ?? You have pain that does not get better after you take pain medicine. ?? You are sick to your stomach or cannot drink fluids. ?? You have new or worse belly pain. ?? You have blood in your stools. ?? You have a fever. ?? You cannot pass stools or gas. Watch closely for changes in your health, and be sure to contact your doctor if you have any problems, like Where can you learn more? [facility] View your After Visit Summary and more online at [email or web address] If you would like to provide feedback about your hospital experience, please call the Office of Patient and Family Relations at . If you have received this After Visit Summary in error, please immediately return it in person to the department, or notify the - Privacy Office by calling toll free at between the hours of 8AM and 5PM to arrange for our retrieval of the documents at no cost to you. Content Version: 12.2 ?? [id number] [email or web address]. Care instructions adapted under license by [facility]. If you have questions about a medical condition or this instruction, always ask your healthcare professional. [email or web address] disclaims any warranty or liability for your use of this information. YOU ARE SCHEDULED FOR A FOLLOW UP APPOINTMENT WITH YOUR PRIMARY CARE PROVIDER'S OFFICE ON 01/31/2021T 11:15AM WITH DR AU * Patient Instructions* Freddie Montes MD - 01/27/2021 11:08 AM EDT Instruction after leaving the hospital Why you were hospitalized: You came in for an elective ERCP and developed ERCP- related pancreatitis. You had to stay in the hospital for IV fluids and pain management to treat your pancreatitis. Call your doctor or seek medical attention if you develop the following: Call your doctor or seek medical attention if you experience any alarming symptoms. This may include, but is not limited to, fever, chest pain, severe shortness of breath, nausea with vomiting, persistent decrease in your urinary output, severe pain, or any other concerning symptoms. Activity level: As tolerated. Diet: No new restrictions. Please avoid fatty foods and drink plenty of fluids Driving: Please do not drive if you feel lightheaded, dizzy, faint, or taking any opioids/narcotics(i.e oxycodone). It is advisable that you do not drive till you follow-up with your primary care physician. Shower/Bath: No new restrictions. Wound Care: N/A Home Oxygen therapy: N/A Patient Instructions: Please follow-up with your PCP Try to get your labs done before seeing your PCP. You can go to any local lab to get those done Please drink plenty of fluids to stay hydrated Please avoid fatty foods to give your pancreas some time to rest Ask your PCP about a referral to surgery to get rid of the stone that required you to get the ERCP Changes in Your Medications: New Medications: None Medication dose changes: None Stop these medications: None Follow-Up Appointments Date and Time Provider and Specialty Location 01/31/21 @ 11:15AM Asia Gil DO , PCP [address] [facility] / [facility] [address] Your Inpatient Doctor(s) at [facility]: MD Lisa Girard MD Aditya Kulkarni, MD Your Primary Care Provider: Asia Gil DO [address] [facility] [address] / [facility] [address] For questions regarding this document or issues relating to this hospitalization on the Medical Service, please contact your inpatient physician through the [facility] Beam Machine Operator . Issues afterhours and on weekends will be handled by the Hospitalist staff on-call. documented in this encounter Medications at Time of Discharge Medication Sig Dispensed Refills Start Date End Date nitroGLYcerin (Nitrostat) 0.4 mg Tablet, Sublingual Take 0.4 mg by mouth as needed. 07/08/2020 acetaminophen (Tylenol) 325 mg Tablet Take 2 [...] 01/27/2021 gabapentin (Neurontin) 100 mg Capsule Take 1 [...] mouth daily. 30 tablet 11 01/27/2021 01/18/2023 lisinopriL (Prinivil;Zestril) 10 mg Tablet Take 1 tablet by mouth daily. 90 tablet 3 01/27/2021 02/03/2021 multivitamin (THERAGRAN) Tablet Take 1 tablet by mouth daily. 02/13/2021 mirtazapine (REMERON) 7.5 mg Tablet Take 7.5 mg by mouth nightly. 03/26/2020 02/13/2021 documented as of this encounter Progress Notes * Jenny Degroot, RD - 01/27/2021 1:08 PM EDT Nutrition Progress Note Toyin Coley is a 65 y.o. female with PMH??SIMMONS cirrhosis (bx-confirmed 08/2008),??hx lap ronnie,??HTN, HLD, DM2, GERD, hx TIA, CKD. Who is being admitted with acute pancreatitis following ERCP Reason for intervention: Education Nutrition Recommendations: Continue low fat diet; education provided Active Orders Diet 45 gm Fat Restricted diet (Low Fat) Frequency: Effective Now Number of Occurrences: Until Specified Lab Results Component Value Date NA 131 (L) 01/27/2021 K 3.9 01/27/2021 CL 97 (L) 01/27/2021 CO2 27 01/27/2021 BUN 24 (H) 01/27/2021 CREATININE 1.54 (H) 01/27/2021 ESTGFR 35 (L) 01/27/2021 MAGNESIUM 0.77 01/27/2021 CALCIUM 8.3 (L) 01/27/2021 PHOS 3.5 01/17/2021 AST 224 (H) 01/17/2021 ALT 152 (H) 01/17/2021 ALKPHOS 111 (H) 01/17/2021 BILITOT 0.6 01/17/2021 BILIDIR 0.3 01/17/2021 HA1C 7.0 (H) 01/19/2021 No results found for: POCGLU Skin Status: Shift Pressure Injury Prevention Occiput: No Injury Thoracic Spine: No Injury Sacral: No Injury Ischial - left: No Injury Ischial - right: No Injury Heel - left: No Injury Heel - right: No Injury Elbow - left: No Injury Elbow - right: No Injury Device Sites: O2 sat monitor, IV sites Other Sites: ID band Relevant medications: noted Last Bowel Movement: 01/25/21 Admit Weight: 76.7 kg Estimated body mass index is 30.42 kg/m?? as calculated from the following: Height as of this encounter: 158.8 cm (5' 2.5). Weight as of this encounter: 76.7 kg (169 lb). [place] Body Weight: 53.6-59 kg Usual Body Weight:see below Wt Readings from Last 10 Encounters: 01/17/21 76.7 kg (169 lb) 06/07/20 74.2 kg (163 lb 9.6 oz) 04/12/20 79 kg (174 lb 2.6 oz) 05/25/14 85.3 kg (188 lb) 01/14/12 81.2 kg (179 lb) 05/25/11 86.6 kg (191 lb) Assessment: Estimated needs: Calories: 1500 Protein: 70 grams Nutrition Focused Physical Exam (NFPE): Not performed Nutrition intake and intake history/Interview: Pt seen for low fat diet educ needs. Pt has had manynpo days since admit but is tolerating low fat diet at present. Diet hx reflects 2 meals/day with some high fat foods ( cheese, peanut butter,, etc). Low fat diet copy reviewed & provided w/ means of contact. Pt encouraged to be aware of any symptoms post prandially as may be related to fat intake; good comprehension verbalized, Protein-calorie Malnutrition: Not identified (GAYLE Gan J Parenteral Enteral Nutr. 2012 February; 36(3): 273-83) Discharge planning underway [address] Pager #:[phone] * Maxim Moltey MD - 01/27/2021 1:08 PM EDT Hospital Medicine - Attending Day of Discharge Documentation Discharge diagnosis Active Hospital Problems Diagnosis ??? Acute pancreatitis ??? Cystic duct calculus ??? RUQ pain Resolved Hospital Problems No resolved problems to display. Secondary Issues Active Non-Hospital Problems Diagnosis ??? Pancreatitis ??? PONV (postoperative nausea and vomiting) ??? Toxic metabolic encephalopathy ??? Acute cystitis [...] spent >30 minutes (Day of Discharge Code 45414) involved in the final examination of the patient, discussion of the hospital stay, instructions for continuing care to all relevant caregivers, and preparation of discharge records, prescriptions and referral forms. Plans ? Discharge to home ? Follow-up scheduled with PCP ? Please see the Discharge Summary for complete details of any medication changes and additional plans. * Cindy Ceravntes RN - 01/27/2021 12:30 PM EDT Pt d/c from unit at approx 1300 to home without services. PIV removed prior to d/c. AVS reviewed prior to d/c. Personal belongings in hand. Cindy Cervantes RN * Zohra Weaver RN - 01/27/2021 10:57 AM EDT CARE MANAGEMENT FINAL DISCHARGE NOTE Chart reviewed, care reviewed with primary team and at interdisciplinary rounds. Patient is medically ready for discharge 01/27/21. Needs for Transition of Care Plan for discharge is: Home without needs Agency Referrals: None indicated Transportation: [employer] phoned to speak with Toyin who states that her son in law left his home in [facility] at around 10:30am. He plans to arrive at the East entrance to pick her up and transport her home in private vehicle at around noon. He is taking her to her 2nd COVID 19 vaccine this afternoon in [facility], scheduled for 1430 hours. Toyin states that her son in law will stay with her for a bit and then she is having a friend come over to stay with her and assist with needs until she feels stronger. Functional status prior to admission: Independent Current Functional Ability: Independent Current DME: Toyin states she has a walker, bathing seat and compression socks already at home. Shestates she has no further needs at this time. DME Needed at DC: None indicated Patient is insured through: Primary Insurance: [employer] MANAGED MEDICARE Payor: AARP MANAGED MEDICARE / Plan: AARP [facility] MANAGED MEDICARE COMPLETE / Product Type: *No Product type* / Secondary Insurance: [facility] Prescription Coverage: See above Preferred Pharmacy: See below [facility] [address] [place] [address] [place] [address] [place] [id number] [id number] - [place], [place] - [address] [place] [address] [address] [facility] [address] [place] [id number] This plan was formulated with input from patient, Toyin Vianca, and team. All are in agreement with plan. Due to current public health concerns, I have verbally reviewed Medicare Discharge Rights with patient. Patient, Toyin Coley, verbalizes understanding of right to appeal this discharge if feeling not medically ready. Offered a copy of this letter, patient declines stating I feel better, I am still tired and my back and side hurt but I think if I go home and get some rest, I will feel better. Zohra Weaver RN [employer] Inspector of Care Management Pager: [phone] * Lisa Valles MD - 01/26/2021 7:40 AM EDT Inpatient Medicine Progress Note Hospital Day 9 days Active Hospital Problems Diagnosis ??? Acute pancreatitis ??? Cystic duct calculus ??? RUQ pain Resolved Hospital Problems No resolved problems to display. Patient ID: Toyin Coley is a 65 y.o. Female with PMH SIMMONS cirrhosis (bx- confirmed 08/2008),??hxlap ronnie,??HTN, HLD, DM2, GERD, hx TIA, CKD. Who is being admitted with acute pancreatitis following ERCP. 24 Hour Events/Subjective: - yesterday, chest tightness. EKG without ST changes - NAEO - Abdominal pain improved. Patient feels ready to go home. Vitals: Last value Range last 24 hrs Temperature Temp: 36.9 ??C (98.4 ??F) Temp: [36.3 ??C (97.3 ??F)-37.3 ??C (99.1 ??F)] Heart Rate Heart Rate: 100 Heart Rate: [100-112] Blood Pressure BP: 101/53 BP: (96-172)/(51-76) Respiratory Rate Resp: 17 Resp: [14-20] SpO2 SpO2: 95 % SpO2: [92 %-95 %] Ins/Outs: Intake/Output Summary (Last 24 hours) at 01/26/2021 0740 Last data filed at 01/26/2021 0700 Gross per 24 hour Intake 3164 ml Output 100 ml Net 3064 ml No data found. Physical Exam: Gen: Uncomfortable appearing, but NAD Abd: Non-TTP, BS+, abdomen soft CV: Tachycardic rate, regular rhythm Labs: Recent Labs 01/26/2142201/25/21 0435 01/24/21 0459 WBC 21.8* 15.2* 13.8* HGB 10.3* 9.9* 10.4* PLATELET 135* 135* 145 Recent Labs 01/26/213 01/25/21 0435 01/24/21 0459 NA 135 132* 133* K 3.1* 3.4* 4.1 CL 101 96* 95* CO2 23 25 28 BUN 16 19* 23* CREATININE 1.05 1.25* 1.32* Recent Labs 01/26/21 0423 01/25/21 0435 01/24/21 0459 CALCIUM 8.8 8.6 9.0 MAGNESIUM 0.98 0.66* 0.95 No results for input(s): AST, ALT, ALKPHOS, BILITOT, BILIDIR in the last 168 hours. No results for input(s): TROPONINT, CK in the last 168 hours. No results for input(s): PHART, JDI2MSL, PO2ART, BED3CVU in the last 168 hours. Inpatient Medications: Scheduled Meds: ??? lisinopriL 10 mg Oral Daily ??? senna-docusate 2 tablet Oral BID ??? lidocaine 3 patch Transdermal Q24H And ??? lidocaine 1 patch Transdermal Q24H ??? melatonin 10.5 mg Oral Nightly ??? polyethylene glycoL (MIRALAX) oral powder 17 g Oral BID ??? pantoprazole EC 40 mg Oral Daily ??? sodium chloride 0.9 % (flush) 5 mL Intravenous BID ??? gabapentin 200 mg Oral BID ??? gabapentin 100 mg Oral Daily at Noon ??? atorvastatin 40 mg Oral QPM ??? metoprolol succinate XL 50 mg Oral Daily ??? DULoxetine DR 30 mg Oral Daily Continuous Infusions: ??? sodium chloride 0.9% 100 mL/hr (01/25/212231) PRN Meds:.calcium carbonate, simethicone, lactulose, metoclopramide, acetaminophen, gabapentin, sodium chloride 0.9 % (flush), lidocaine, ondansetron OR ondansetron Assessment/Plan: Toyin Coley is a 65 y.o. 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 Who is being admitted with concerns of pancreatitis following ERCP. Abdominal pain is at baseline today. From that perspective patient is ready to go home. Patient on low fat diet and tolerating well. Her WBC is going up today which could represent changes related to pancreatitis. We will continue to trend WBC. Patient currently asymptomatic. Patient agreeable to staying until tomorrow to follow labs. ?? Plan: #Suspected pancreatitis 2/2 to ERCP #Leukocytosis - Tylenol 650mg Q6h prn - Zofran Q8h prn - Low fat diet - d/c IVF - Trend WBC - Monitor for symptoms #Constipation, resolved - Miralax BID - Pericolace BID #GETACHEW 2/2 to contrast- resolving - daily BMP - Encourage PO fluids ? #Hypertension - Resume home lisinopril 10mg - hold home HCTZ #Other home meds - Continue home duloxetine - Continue home gabapentin - Continue home protonix ?? #Routine DVT PPx: SCD Diet: full liquids Dispo: pending course Code Status: Full Code. Surrogate decision makers: [her] daughters Lisa Valles MD PGY - 1, Internal Medicine 01/26/2021 Associated attestation - Maxim Motley MD - 01/26/2021 1:41 PM EDT I have seen the patient and reviewed 's history and I agree with the details as written. I have personally reviewed and interpreted vital signs, lab and imaging studies. The assessment and plan were formulated in discussion with me and I agree with them as documented. Clinically much improved today. Abdominal pain has returned to baseline and her nausea has resolved. Diet has been advanced and she is tolerating a low fat diet as well as liquids. Unfortunately her WBCs have worsened since yesterday. Possibly to plateau by tomorrow given overall clinical improvement. Will recheck in AM and plan for discharge if stable or improving with outpatient PCP follow- up for repeat labs. Patient requests early AM discharge if possible as she has her second COVID vaccine tomorrow afternoon at [facility]. DVT Prophylaxis SCDs PCP Asia Gil, DO Attestation IPI Certification I certify that I am a D-H credentialed attending provider with admitting privileges and that the patient meets or has met medical necessity to require an inpatient IPI level of care meeting a minimumof two midnights or is on the [facility] only procedure list (status C) due to: abdominal pain in the setting of acute pancreatitis and likely constipation requiring titration of pain control and anti-emetics MAXIM MOTLEY MD * Shayy Ashley RN - 01/26/2021 1:19 AM EDT OUTCOME EVALUATION NOTE: ?? OUTCOME SUMMARY: ?? Pt A/Ox4, VSS, WNL sitting on side of bed; continues to experience loose stools with incontinent leakage; c/o back & bilateral foot pain,??denies any chest pain, dizziness, or nausea; po pm medication tolerated; lidoderm??patch's applied; IV NS @ 100mL/hr continues to infuse without difficulty;Pt resting with eyes close, snoring; 0500 awake sitting on side of bed; c/o LAZO & back pain 06/20; Tylenol 650mg po given; 0530 c/o pain (L) leg and foot 06/20, Gabapentin 200mg po prn given; Scheduled am dose will need to adjusted; will continue to monitor and update as needed, PLAN MOVING FORWARD: Continue to monitor??VS Bowel meds Pain control ?INDIVIDUALIZED FALL PREVENTION INTERVENTIONS: ?? Patient-specific fall risk factors per assessment: [current deficits]:?Generalized weakness, high fall risk; pain; IVP? Assistance [level of assistance required for transfers and ambulation]:?SBA/Ind ?? Supervision [direct monitoring required during toileting and ADLs]:?SBA/Ind ?? Surveillance [continuous indirect monitoring]:?Purposeful hourly rounding, call cunningham within reach, rings appropriately, room near unit station, bed alarm set? Patient-specific fall prevention interventions for sensory deficits provided, if applicable:?[X]N/A ? CPG GOAL OUTCOME EVALUATION: Revision History ?? Revision History * Scarlet Muñoz DT - 01/25/2021 12:16 PM EDT Nutrition Services Note - Low Nutrition Acuity Toyin Coley is a 65 y.o. female Reason for intervention: hospital day 9 Nutrition Plan: Patient screened for hospital length of stay. Pt's diet downgraded to clear liquids d/t abdominal pain, the etiology of which is uncertain at this time. Clinical nutrition will f/u with patient upon diet advancement. Active Orders Diet Clear Liquid Frequency: Effective Now Number of Occurrences: Until Specified Admit Weight: 76.66 kg Estimated body mass index is 30.42 kg/m?? as calculated from the following: Height as of this encounter: 158.8 cm (5' 2.5). Weight as of this encounter: 76.7 kg (169 lb). Wt Readings from Last 5 Encounters: 01/17/21 76.7 kg (169 lb) 06/07/20 74.2 kg (163 lb 9.6 oz) 04/12/20 79 kg (174 lb 2.6 oz) 05/25/14 85.3 kg (188 lb) 01/14/12 81.2 kg (179 lb) Weight loss: not clinically significant Appetite: Poor (0%-25%) Food allergies:no known food allergies Chewing/Swallowing difficulty: on clear liquid diet Nausea/Vomiting: nausea and vomiting per chart Last Bowel Movement: 01/25/21 Patient education / questions: n/a Nutrition services to follow weekly through hospital course unless consulted in the interim. JAZMIN Baez Pager: [phone] * Freddie Montes MD - 01/25/2021 12:15 PM EDT Inpatient Medicine Progress Note Hospital Day 8 days Active Hospital Problems Diagnosis ??? Acute pancreatitis ??? Cystic duct calculus ??? RUQ pain Resolved Hospital Problems No resolved problems to display. Patient ID: Toyin Coley is a 65 y.o. Female with PMH SIMMONS cirrhosis (bx- confirmed 08/2008),??hxlap ronnie,??HTN, HLD, DM2, GERD, hx TIA, CKD. Who is being admitted with acute pancreatitis following ERCP. 24 Hour Events/Subjective: - Small BMs with colo prep last night - chest tightness this morning. EKG without ST changes - Abdominal pain improved, but patient feels unwell due to ongoing nausea Vitals: Last value Range last 24 hrs Temperature Temp: 37.1 ??C (98.8 ??F) Temp: [36.5 ??C (97.7 ??F)-37.3 ??C (99.1 ??F)] Heart Rate Heart Rate: 100 Heart Rate: [78-112] Blood Pressure BP: 133/70 BP: (133-172)/(64-86) Respiratory Rate Resp: 20 Resp: [19-20] SpO2 SpO2: 92 % SpO2: [92 %-96 %] Ins/Outs: Intake/Output Summary (Last 24 hours) at 01/25/2021 1210 Last data filed at 01/25/2021 0617 Gross per 24 hour Intake 1085 ml Output 300 ml Net 785 ml No data found. Physical Exam: Gen: Uncomfortable appearing, but NAD Abd: Non-TTP, BS+, abdomen soft CV: Tachycardic rate, regular rhythm Labs: Recent Labs 01/25/215 01/24/219 01/23/21 0349 WBC 15.2* 13.8* 13.9* HGB 9.9* 10.4* 10.5* PLATELET 135* 145 125* Recent Labs 01/25/21 0435 01/24/21 0459 01/23/21 0349 NA 132* 133* 130* K 3.4* 4.1 4.2 CL 96* 95* 96* CO2 25 28 24 BUN 19* 23* 31* CREATININE 1.25* 1.32* 1.53* Recent Labs 01/25/21 0435 01/24/21 0459 01/23/21 0349 CALCIUM 8.6 9.0 8.9 MAGNESIUM 0.66* 0.95 0.84 No results for input(s): AST, ALT, ALKPHOS, BILITOT, BILIDIR in the last 168 hours. No results for input(s): TROPONINT, CK in the last 168 hours. No results for input(s): PHART, GSZ4JGL, PO2ART, XQN4ISI in the last 168 hours. Inpatient Medications: Scheduled Meds: ??? potassium chloride ER 40 mEq Oral Once ??? lisinopriL 10 mg Oral Daily ??? senna-docusate 2 tablet Oral BID ??? lidocaine 3 patch Transdermal Q24H And ??? lidocaine 1 patch Transdermal Q24H ??? melatonin 10.5 mg Oral Nightly ??? polyethylene glycoL (MIRALAX) oral powder 17 g Oral BID ??? pantoprazole EC 40 mg Oral Daily ??? sodium chloride 0.9 % (flush) 5 mL Intravenous BID ??? gabapentin 200 mg Oral BID ??? gabapentin 100 mg Oral Daily at Noon ??? atorvastatin 40 mg Oral QPM ??? metoprolol succinate XL 50 mg Oral Daily ??? DULoxetine DR 30 mg Oral Daily Continuous Infusions: PRN Meds:.calcium carbonate, simethicone, lactulose, metoclopramide, acetaminophen, gabapentin, sodium chloride 0.9 % (flush), lidocaine, ondansetron OR ondansetron Assessment/Plan: Toyin Coley is a 65 y.o. 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 Who is being admitted with concerns of pancreatitis following ERCP. ?? The etiology of her abdominal pain is uncertain at this time. Her physical exam does not show the prior epigastric and RUQ tenderness. She has also had BMs, so constipation is unlikely. Her WBC is going up, so it could represent changes related to pancreatitis. We will treat empirically symptomatically and reduce her diet to clear liquid and place her back on fluids. ?? Plan: #Suspected pancreatitis 2/2 to ERCP - Tylenol 650mg Q6h prn - Zofran Q8h prn - CT Abdomen/Pelvis w/ contrast if abdomen does not improve - clear liquid diet - mIVF #Constipation, resolved - Miralax BID - Pericolace BID #GETACHEW 2/2 to contrast- resolving - daily BMP - Encourage PO fluids ? #Hypertension - Resume home lisinopril 10mg - hold home HCTZ #Other home meds - Continue home duloxetine - Continue home gabapentin - Continue home protonix ?? #Routine DVT PPx: SCD Diet: full liquids Dispo: pending course Code Status: Full Code. Surrogate decision makers: [her] daughters Freddie Montes MD PGY - 3, Internal Medicine 01/25/2021 Associated attestation - Maxim Motley MD - 01/26/2021 1:38 PM EDT I have seen the patient and reviewed 's history and I agree with the details as written.I have personally reviewed and interpreted vital signs, lab and imaging studies. The assessment andplan were formulated in discussion with me and I agree with them as documented. Has had some ongoing abdominal discomfort, albeit improved since passage of several bowel movementsovernight. Today she reports that her nausea is most bothersome and she has been unable to tolerateany food or drink. Unclear whether this just represents a re-equilibration of her bowels in the setting of significant constipation or whether it represents a more sinister pancreatic process, particularly in light of her uptrending WBCs. Reasonable to downgrade diet to clear liquids, start IVF, treat with ongoing bowel medications and anti- emetics and trend WBCs over the next 24 hours. Could consider repeat cross sectional imaging pending course. DVT Prophylaxis SCDs PCP Asia Gil, DO Attestation IPI Certification I certify that I am a D-H credentialed attending provider with admitting privileges and that the patient meets or has met medical necessity to require an inpatient IPI level of care meeting a minimumof two midnights or is on the [facility] only procedure list (status C) due to: abdominal pain in the setting of acute pancreatitis and likely constipation requiring titration of pain control and anti-emetics MAXIM MOTLEY MD * Shayy Ashley RN - 01/25/2021 4:55 AM EDT OUTCOME EVALUATION NOTE: ?? OUTCOME SUMMARY: ?? Pt A/Ox4, VSS, WNL continues to c/o back pain, po pm medication tolerated well; lidoderm??patch's applied and tylenol given??for back pain.??Pt continues to use ice on abdomen with good effect; Bowelprep started per orders; c/o nausea; Reglan 10mg IVP given with good results; patient had several small/medium loose brown stools prior to starting prep. Has had good results, but stool still remainslight brown in color; has been unable to complete prep as ordered; c/o of severe cramping related to frequent stools; will continue to enourage patient to finish prep; 0640 Up to [facility] for stool; c/o back pain 06/20; physician notified; Ibuprofen 600 mg given; will continue to monitor and update as needed. ?? PLAN MOVING FORWARD: Continue to monitor VS Bowel meds Pain control ?INDIVIDUALIZED FALL PREVENTION INTERVENTIONS: ?? Patient-specific fall risk factors per assessment: [current deficits]:?Generalized weakness, high fall risk; pain; IVP? Assistance [level of assistance required for transfers and ambulation]:?SBA/Ind ?? Supervision [direct monitoring required during toileting and ADLs]:?SBA/Ind Surveillance [continuous indirect monitoring]:?Purposeful hourly rounding, call cunningham within reach, rings appropriately, room near unit station, bed alarm set? Patient-specific fall prevention interventions for sensory deficits provided, if applicable:?[X]N/A ? CPG GOAL OUTCOME EVALUATION: Revision History ?? Revision History * Zohra Weaver RN - 01/24/2021 10:16 AM EDT OFFICE OF CARE MANAGEMENT ?? Federal Law Clerk Follow-up Note ?? S/O:?Discussed plan of care with Primary team and Nursing to assess continuing care and discharge needs. LOS:?7 days Primary Insurance: AARP Managed Medicare Secondary Insurance: None indicated DECISION MAKER:?Patient ?? Pt continues to require hospitalization for:?Per MD, patient needs to move bowels and continuingto work on pain management related to acute pancreatitis. ?? Current referrals in place:?None indicated ?? A: Tentative plan for discharge planned for 01/25/21 without needs to home. ?? P: Federal Law Clerk to follow with team and family to assist with discharge needs when patient ready for discharge. ?? An Important Message From Medicare about Your Rights letter reviewed with pt, Toyin Coley, and she provided verbal acknowledgment and was provided copy. Mary Weaver RNCM Pager: ??[phone] * Lisa Valles MD - 01/24/2021 7:44 AM EDT Inpatient Medicine Progress Note Hospital Day 7 days Active Hospital Problems Diagnosis ??? Acute pancreatitis ??? Cystic duct calculus ??? RUQ pain Resolved Hospital Problems No resolved problems to display. Patient ID: Toyin Coley is a 65 y.o. Female with PMH SIMMONS cirrhosis (bx- confirmed 08/2008),??hxlap ronnie,??HTN, HLD, DM2, GERD, hx TIA, CKD. Who is being admitted with acute pancreatitis following ERCP. 24 Hour Events/Subjective: - No BM- patient remains constipated- regiment includes miralax, pericolace, lactulose, and enemas - Overnight, patient complaining of back pain- given 1x dose ibuprofen - This AM, sleeping. Vitals: Last value Range last 24 hrs Temperature Temp: 36.6 ??C (97.9 ??F) Temp: [36.6 ??C (97.9 ??F)-37.1 ??C (98.8 ??F)] Heart Rate Heart Rate: 73 Heart Rate: -- Blood Pressure BP: 123/59 BP: (123-188)/(59-97) Respiratory Rate Resp: 14 Resp: [14-22] SpO2 SpO2: 93 % SpO2: [92 %-96 %] Ins/Outs: Intake/Output Summary (Last 24 hours) at 01/24/2021 0744 Last data filed at 01/24/2021 0524 Gross per 24 hour Intake 505 ml Output 1475 ml Net -970 ml Patient Vitals for the past 168 hrs: Weight 01/17/21 1004 76.7 kg (169 lb) Physical Exam: Gen: NAD, resting comfortably, no difficulty breathing Labs: Recent Labs 01/24/21 0459 01/23/21 0349 01/22/21 0322 WBC 13.8* 13.9* 13.1* HGB 10.4* 10.5* 9.6* PLATELET 145 125* 114* Recent Labs 01/24/2145801/23/219 01/22/21321 NA 133* 130* 130* K 4.1 4.2 4.2 CL 95* 96* 96* CO2 28 24 27 BUN 23* 31* 36* CREATININE 1.32* 1.53* 2.11* Recent Labs 01/24/2145801/23/219 01/22/2132101/17/212050 CALCIUM 9.0 8.9 8.6 10.2 10.2 MAGNESIUM 0.95 0.84 0.94 0.63* PHOS -- -- -- 3.5 Recent Labs 01/17/212050 AST 224* ALT 152* ALKPHOS 111* BILITOT 0.6 BILIDIR 0.3 No results for input(s): TROPONINT, CK in the last 168 hours. No results for input(s): PHART, EKP1BCY, PO2ART, YSW7MOL in the last 168 hours. Inpatient Medications: Scheduled Meds: ??? senna-docusate 2 tablet Oral BID ??? lactulose 20 g Oral BID ??? lidocaine 3 patch Transdermal Q24H And ??? lidocaine 1 patch Transdermal Q24H ??? melatonin 10.5 mg Oral Nightly ??? polyethylene glycoL (MIRALAX) oral powder 17 g Oral BID ??? pantoprazole EC 40 mg Oral Daily ??? sodium chloride 0.9 % (flush) 5 mL Intravenous BID ??? gabapentin 200 mg Oral BID ??? gabapentin 100 mg Oral Daily at Noon ??? atorvastatin 40 mg Oral QPM ??? metoprolol succinate XL 50 mg Oral Daily ??? DULoxetine DR 30 mg Oral Daily ??? insulin lispro 1-4 Units Subcutaneous Q4H BASIL Continuous Infusions: PRN Meds:.metoclopramide, acetaminophen, gabapentin, sodium chloride 0.9 % (flush), lidocaine, ondansetron OR ondansetron, glucose 40% oral geL OR dextrose 10% OR glucagon Assessment/Plan: Toyin Coley is a 65 y.o. 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 Who is being admitted with concerns of pancreatitis following ERCP. ?? Patient continues to have abdominal pain and constipation despite comprehensive bowel regiment. Will try senna load today, per pharmacy recs. Cr down trending. ?? Plan: #Admit to hospital medicine ?? #Suspected pancreatitis 2/2 to ERCP - Tylenol 650mg Q6h prn - Zofran Q8h prn - d/c Dilaudid PO - CT Abdomen/Pelvis w/ contrast as above - regular diet #Constipation - KUB as above - Lactulose scheduled - S/p 2x enema - Miralax BID - Pericolace BID - Senna load #GETACHEW 2/2 to contrast- resolving - daily BMP - Encourage PO fluids ?? #DM type II- no outpatient medications for management - d/c Sensitive SSI in setting of well controlled BS - Hg A1c-7 ?? #Hypertension - hold home lisinopril in setting GETACHEW - hold home HCTZ #Other home meds - Continue home duloxetine - Continue home gabapentin - Continue home protonix ?? #Routine DVT PPx: SCD Diet: full liquids Dispo: pending course Code Status: Full Code. Surrogate decision makers: [her] daughters Lisa L MD Reena PGY - 1, Internal Medicine 01/24/2021 Associated attestation - Travis Callahan MD - 01/24/2021 7:33 PM EDT Attending Attestation Please see Dr [...] of two midnights or is [facility] the [facility] procedure list (status C) due to: abdominal pain in the setting of acute pancreatitis and likely constipation. Ongoing abdominal pain that she attributes to constipation (no bowel movement in 5 days). She is passing gas and doesn't have considerable nausea. We have been using enemas and laxatives without success. We will continue to uptitrate bowel regiment, although low threshold to re-image abdomen to ensure there isn't more to this than constipation. Principal Problem: Acute pancreatitis Active Problems: Cystic duct calculus Overview: Added automatically from request for surgery [id number] RUQ pain Overview: Added automatically from request for surgery [id number] Travis Callahan MD 01/24/2021 7:30 PM * Shayy Ashley RN - 01/24/2021 4:23 AM EDT OUTCOME EVALUATION NOTE: ?? OUTCOME SUMMARY: ?? Pt A/Ox4, VSS, c/o 6/10 pain, po pm medication tolerated well; lidoderm patch's applied and tylenolgiven for back pain. Pt continues to use ice on abdomen with good effect; Up to BR with SBA to void; no stool this shift; Ambulates well with no overt s/s. Patient has not required any insulin coverage this shift; 0530 pt up to BR to void; c/o pain 8/10 in lower back; states Tylenol is not holding h er pain; physician notified; please see new order; [id number] this am covered with 1 Unit Humalog insulin. Has rested well between care delivery; will continue to monitor and update as needed. ?? PLAN MOVING FORWARD: Continue to monitor VS Bowel meds Pain control ?INDIVIDUALIZED FALL PREVENTION INTERVENTIONS: ?? Patient-specific fall risk factors per assessment: [current deficits]:?Generalized weakness, high fall risk; pain; IVP? Assistance [level of assistance required for transfers and ambulation]:?SBA/Ind ?? Supervision [direct monitoring required during toileting and ADLs]:?Eyes/hands on ?? Surveillance [continuous indirect monitoring]:?Purposeful hourly rounding, call cunningham within reach, rings appropriately, room near unit station, bed alarm set?? Patient-specific fall prevention interventions for sensory deficits provided, if applicable:?[X]N/A ? CPG GOAL OUTCOME EVALUATION: Revision History * Zohra Weaver RN - 01/23/2021 2:08 PM EDT OFFICE OF CARE MANAGEMENT Federal Law Clerk Follow-up Note S/O: Discussed plan of care with Primary team and Nursing to assess continuing care and discharge needs. LOS: 6 days Primary Insurance: [employer] Managed Medicare Secondary Insurance: None indicated DECISION MAKER: Patient Pt continues to require hospitalization for: Per MD, patient needs to move bowels and continuing towork on pain management related to acute pancreatitis. Current referrals in place: None indicated A: Tentative plan for discharge planned for 01/24/21 without needs to home. P: Federal Law Clerk to follow with team and family to assist with discharge needs when patient ready for discharge. Mary Weaver RNCM Pager: [phone] * Lisa Valles MD - 01/23/2021 7:59 AM EDT Inpatient Medicine Progress Note Hospital Day 6 days Active Hospital Problems Diagnosis ??? Acute pancreatitis ??? Cystic duct calculus ??? RUQ pain Resolved Hospital Problems No resolved problems to display. Patient ID: Toyin Coley is a 65 y.o. Female with PMH SIMMONS cirrhosis (bx- confirmed 08/2008),??hxlap ronnie,??HTN, HLD, DM2, GERD, hx TIA, CKD. Who is being admitted with acute pancreatitis following ERCP. 24 Hour Events/Subjective: - Yesterday, Cr elevated- down trending now - Overnight, patient constipated- given tap water enema. Patient developed severe abdominal pain- KUB showed no free air or obvious obstruction. Given additional enema and lactulose. Per surgery, cannot evaluate without CT w/ contrast. - This AM, patient has not had BM and abdominal pain very uncomfortable. Vitals: Last value Range last 24 hrs Temperature Temp: 36.7 ??C (98.1 ??F) Temp: [36.6 ??C (97.8 ??F)-37.6 ??C (99.6 ??F)] Heart Rate Heart Rate: 73 Heart Rate: [73-76] Blood Pressure BP: 170/75 BP: (123-170)/(55-75) Respiratory Rate Resp: 18 Resp: [18-19] SpO2 SpO2: 92 % SpO2: [92 %-96 %] Ins/Outs: Intake/Output Summary (Last 24 hours) at 01/23/2021 0759 Last data filed at 01/23/2021 0505 Gross per 24 hour Intake 690 ml Output 1125 ml Net -435 ml Patient Vitals for the past 168 hrs: Weight 01/17/21 1004 76.7 kg (169 lb) Physical Exam: Gen: moderate distress, A&Ox3 HEENT: sclera non-icteric, no conjunctival erythema, OP clear, MMM CV: RRR, no m/r/g, nl s1, s2 Pulm: CTA b/l, breathing non-labored Abd: soft, NT, ND, bowel sounds present Neuro: no focal deficits grossly noted. Orientation - person, place and time. Labs: Recent Labs 01/23/2134801/22/2132101/21/21442 WBC 13.9* 13.1* 16.4* HGB 10.5* 9.6* 10.5* PLATELET 125* 114* 92* Recent Labs 01/23/2134801/22/2132101/21/21 113 NA 130* 130* 133* K 4.2 4.2 3.6 CL 96* 96* 95* CO2 24 27 27 BUN 31* 36* 30* CREATININE 1.53* 2.11* 1.95* Recent Labs 01/23/2134801/22/2132101/21/217 01/21/2144201/17/212050 CALCIUM 8.9 8.6 9.2 8.7 10.2 10.2 MAGNESIUM 0.84 0.94 -- 0.89 0.63* PHOS -- -- -- -- 3.5 Recent Labs 01/17/212050 AST 224* ALT 152* ALKPHOS 111* BILITOT 0.6 BILIDIR 0.3 No results for input(s): TROPONINT, CK in the last 168 hours. No results for input(s): PHART, ZJS3DKN, PO2ART, JPL3LFI in the last 168 hours. Inpatient Medications: Scheduled Meds: ??? lidocaine 3 patch Transdermal Q24H And ??? lidocaine 1 patch Transdermal Q24H ??? melatonin 10.5 mg Oral Nightly ??? polyethylene glycoL (MIRALAX) oral powder 17 g Oral BID ??? senna-docusate 1 tablet Oral Daily ??? pantoprazole EC 40 mg Oral Daily ??? sodium chloride 0.9 % (flush) 5 mL Intravenous BID ??? gabapentin 200 mg Oral BID ??? gabapentin 100 mg Oral Daily at Noon ??? atorvastatin 40 mg Oral QPM ??? metoprolol succinate XL 50 mg Oral Daily ??? DULoxetine DR 30 mg Oral Daily ??? insulin lispro 1-4 Units Subcutaneous Q4H BASIL Continuous Infusions: PRN Meds:.lactulose, acetaminophen, gabapentin, sodium chloride 0.9 % (flush), lidocaine, ondansetron OR ondansetron, glucose 40% oral geL OR dextrose 10% OR glucagon Assessment/Plan: Toyin Coley is a 65 y.o. 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 Who is being admitted with concerns of pancreatitis following ERCP. ?? Overnight patient had sever abdominal pain- KUB showed no free air or obstruction. Patient has not had bowel movement in 6 days- given enema and started on lactulose (additionally on miralax and pericolase). Per surgery, cannot evaluate without CT w/ contrast, but given recent kidney injury and sam gn abdominal exam will hold off for now. Presentation likely 2/2 to severe constipation- will continue bowel regiment and monitor for resolution of pain. Cr down trending. ?? Plan: #Admit to hospital medicine ?? #Suspected pancreatitis 2/2 to ERCP - Tylenol 650mg Q6h prn - Zofran Q8h prn - d/c Dilaudid PO - CT Abdomen/Pelvis w/ contrast as above - regular diet #Constipation - KUB as above - Lactulose PRN - S/p 2x enema - Miralax BID - Pericolace BID #GETACHEW 2/2 to contrast- resolving - daily BMP - Encourage PO fluids ?? #DM type II- no outpatient medications for management - Sensitive SSI - Hg A1c-7 ?? #Hypertension - hold home lisinopril in setting GETACHEW - hold home HCTZ #Other home meds - Continue home duloxetine - Continue home gabapentin - Continue home protonix ?? #Routine DVT PPx: SCD Diet: full liquids Dispo: pending course Code Status: Full Code. Surrogate decision makers: [her] daughters Lisa L MD Reena PGY - 1, Internal Medicine 01/23/2021 Associated attestation - Travis Callahan MD - 01/23/2021 5:46 PM EDT Attending Attestation Please see Dr [...] of two midnights or is [facility] the [facility] procedure list (status C) due to: uncontrolled pain requiring titration of medications to achieve optimal effect and to minimize immediate or severe side effects Ongoing abdominal pain, seems most likely to be due to constipation. Non- obstructive gas pattern onAXR. Symptoms and exam do not appear consistent with a complication of her pancreatitis. Aggressivebowel regimen, discharge when pain better controlled. Principal Problem: Acute pancreatitis Active Problems: Cystic duct calculus Overview: Added automatically from request for surgery [id number] RUQ pain Overview: Added automatically from request for surgery [id number] Travis Callahan MD 01/23/2021 5:44 PM * Janet Rubi RN - 01/23/2021 2:34 AM EDT OUTCOME EVALUATION NOTE: ?? OUTCOME SUMMARY: ?? Pt a+ox4, VSS, c/o 8/10 pain, lidoderm patch's applied and tylenol given for back pain. Pt using ice on abdomen with good effect. Extra dose of gabapentin ordered and given for back pain as well. Pt complaining of abdominal pain overnight and requested an enema. Per pt she has not had a BM since the after her colo prep. Pt had eaten over the weekend at home before coming to the hospital on Wednesday 01/17; and has not had a BM since. Enema given tonight with some effect, pt flushed before I could visualize but stated she had some brown liquid. Slept for a bit and woke up with 08/20 abdominal pain and nausea, PO zofran given. paged and at bedside to assess. Pt up to bedside dry heaving, IVzofran given. Portable abdominal xray ordered; waiting for read. Pt resting with eyes closed, cool cloth over forehead.??Safety maintained. No acute issues or events overnight. ?? PLAN MOVING FORWARD: ?? Continue to monitor.? INDIVIDUALIZED FALL PREVENTION INTERVENTIONS: ?? Patient-specific fall risk factors per assessment: [current deficits]:?Generalized weakness, newenvironment, high fall risk? Assistance [level of assistance required for transfers and ambulation]:?SBA/Ind ?? Supervision [direct monitoring required during toileting and ADLs]:?Arms reach ?? Surveillance [continuous indirect monitoring]:?Masimo, purposeful rounding ?? Patient-specific fall prevention interventions for sensory deficits provided, if applicable:?[X]N/A ? CPG GOAL OUTCOME EVALUATION: * Lisa Valles MD - 01/22/2021 7:47 AM EDT Inpatient Medicine Progress Note Hospital Day 5 days Active Hospital Problems Diagnosis ??? Acute pancreatitis ??? Cystic duct calculus ??? RUQ pain Resolved Hospital Problems No resolved problems to display. Patient ID: Toyin Colye is a 65 y.o. Female with PMH SIMMONS cirrhosis (bx- confirmed 08/2008),??hxlap ronnie,??HTN, HLD, DM2, GERD, hx TIA, CKD. Who is being admitted with acute pancreatitis following ERCP. 24 Hour Events/Subjective: - Yesterday, fluids stopped and advanced to regular diet - NAEO - This AM, her abdominal pain is at baseline and she is feeling well. Patient would like to go home. Vitals: Last value Range last 24 hrs Temperature Temp: 36.6 ??C (97.8 ??F) Temp: [36.4 ??C (97.6 ??F)-36.9 ??C (98.4 ??F)] Heart Rate Heart Rate: 82 Heart Rate: [75-82] Blood Pressure BP: 126/63 BP: (107-126)/(50-67) Respiratory Rate Resp: 18 Resp: [16-19] SpO2 SpO2: 95 % SpO2: [84 %-96 %] Ins/Outs: Intake/Output Summary (Last 24 hours) at 01/22/2021 0747 Last data filed at 01/22/2021 0617 Gross per 24 hour Intake 2564 ml Output 850 ml Net 1714 ml Patient Vitals for the past 168 hrs: Weight 01/17/21 1004 76.7 kg (169 lb) Physical Exam: Gen: moderate distress, A&Ox3 HEENT: sclera non-icteric, no conjunctival erythema, OP clear, MMM CV: RRR, no m/r/g, nl s1, s2 Pulm: CTA b/l, breathing non-labored Abd: soft, RUQ and epigastrium tender, ND, bowel sounds present Neuro: no focal deficits grossly noted. Orientation - person, place and time. Labs: Recent Labs 01/22/2132101/21/213 01/20/21 0419 WBC 13.1* 16.4* 20.1* HGB 9.6* 10.5* 11.4* PLATELET 114* 92* 134* Recent Labs 01/22/2132101/21/21 1137 01/21/21 0443 NA 130* 133* 131* K 4.2 3.6 4.4 CL 96* 95* 97* CO2 27 27 25 BUN 36* 30* 28* CREATININE 2.11* 1.95* 1.79* Recent Labs 01/22/21 03201/21/21 1137 01/21/21 0443 01/20/21 0419 01/17/21 2051 CALCIUM 8.6 9.2 8.7 9.1 10.2 10.2 MAGNESIUM 0.94 -- 0.89 0.69 0.63* PHOS -- -- -- -- 3.5 Recent Labs 01/17/212050 AST 224* ALT 152* ALKPHOS 111* BILITOT 0.6 BILIDIR 0.3 No results for input(s): TROPONINT, CK in the last 168 hours. No results for input(s): PHART, EGS7OVM, PO2ART, VUP5LLZ in the last 168 hours. Inpatient Medications: Scheduled Meds: ??? melatonin 10.5 mg Oral Nightly ??? lidocaine 1 patch Transdermal Q24H And ??? lidocaine 1 patch Transdermal Q24H ??? acetaminophen 650 mg Oral Q6H BASIL ??? polyethylene glycoL (MIRALAX) oral powder 17 g Oral BID ??? senna-docusate 1 tablet Oral Daily ??? pantoprazole EC 40 mg Oral Daily ??? sodium chloride 0.9 % (flush) 5 mL Intravenous BID ??? gabapentin 200 mg Oral BID ??? gabapentin 100 mg Oral Daily at Noon ??? atorvastatin 40 mg Oral QPM ??? metoprolol succinate XL 50 mg Oral Daily ??? DULoxetine DR 30 mg Oral Daily ??? insulin lispro 1-4 Units Subcutaneous Q4H BASIL Continuous Infusions: PRN Meds:.HYDROmorphone OR HYDROmorphone OR HYDROmorphone, sodium chloride 0.9 % (flush), lidocaine, ondansetron OR ondansetron, glucose 40% oral geL OR dextrose 10% OR glucagon Assessment/Plan: Toyin Coley is a 65 y.o. 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 Who is being admitted with concerns of pancreatitis following ERCP. ?? Today, patient is back to her baseline in terms of abdominal pain, and WBC is dropping back to normal. From this perspective can be discharged. Her Cr continues to rise, most likely 2/2 to contrast. Should continue to monitor and give extra fluids with plans to discharge once Cr begins to downtrend. ?? Plan: #Admit to hospital medicine ?? #Suspected pancreatitis 2/2 to ERCP - Tylenol 650mg Q6h prn - Zofran Q8h prn - d/c Dilaudid PO - CT Abdomen/Pelvis w/ contrast as above - regular diet #GETACHEW 2/2 to contrast - daily BMP - Encourage PO fluids ?? #DM type II- no outpatient medications for management - Sensitive SSI - Hg A1c-7 ?? #Hypertension - hold home lisinopril in setting GETACHEW - hold home HCTZ #Other home meds - Continue home duloxetine - Continue home gabapentin - Continue home protonix ?? #Routine DVT PPx: SCD Diet: full liquids Dispo: pending course Code Status: Full Code. Surrogate decision makers: [her] daughters Lisa Dominguez MD Reena PGY - 1, Internal Medicine 01/22/2021 Associated attestation - Travis Callahan MD - 01/22/2021 1:54 PM EDT Attending Attestation Please see Reena's note for details of the patient history [...] of two midnights or [facility] only procedure list (status C) due to: acute kidney injury necessitating close monitoring of fluid balance such as intravenous fluids and/or titration of medication to achieve optimal effect and minimize the chance of immediate or severe side effects Post-ERCP pancreatitis largely resolved. Her serum Cr is slightly worse today, suspect evolution ofCIN. She will remain in the hospital for at least one more day so we can monitor her Cr. Principal Problem: Acute pancreatitis Active Problems: Cystic duct calculus Overview: Added automatically from request for surgery [id number] RUQ pain Overview: Added automatically from request for surgery [id number] Travis Callahan MD 01/22/2021 1:52 PM * Janet Rubi RN - 01/22/2021 4:22 AM EDT OUTCOME EVALUATION NOTE: ?? OUTCOME SUMMARY: ?? Pt a+ox4, VSS, c/o 8/10 pain, PRN dilaudid given with moderate effect, lidoderm patch ordered per MD and given as well for back pain. Pt using ice on abdomen with good effect as well. Pt on 2L NC forsleep. Safety maintained. No acute issues or events overnight. ?? PLAN MOVING FORWARD: ?? Continue to monitor. ?? INDIVIDUALIZED FALL PREVENTION INTERVENTIONS: ?? Patient-specific fall risk factors per assessment: [current deficits]: Generalized weakness, new environment, high fall risk ?? Assistance [level of assistance required for transfers and ambulation]: SBA/Ind ?? Supervision [direct monitoring required during toileting and ADLs]: Arms reach ?? Surveillance [continuous indirect monitoring]: Masimo, purposeful rounding ?? Patient-specific fall prevention interventions for sensory deficits provided, if applicable: [X] N/A ? CPG GOAL OUTCOME EVALUATION: * Zohra Weaver RN - 01/21/2021 12:47 PM EDT OFFICE OF CARE MANAGEMENT Federal Law Clerk Follow-up Note S/O: Discussed plan of care with Primary team and Nursing to assess continuing care and discharge needs. LOS: 4 days Primary Insurance: [facility] Managed Medicare Secondary Insurance: [facility] DECISION MAKER: Patient Pt continues to require hospitalization for: Acute pancreatitis, pain management. Current referrals in place: None indicated at this time A: Discharge plan for tentative medical readiness per MD 01/22/21, home without needs.. P: Federal Law Clerk to follow with team and family to assist with discharge needs when patient ready for discharge. Mary Weaver RN Pager: [phone] * Lisa Valles MD - 01/21/2021 7:41 AM EDT Inpatient Medicine Progress Note Hospital Day 4 days Active Hospital Problems Diagnosis ??? Acute pancreatitis ??? Cystic duct calculus ??? RUQ pain Resolved Hospital Problems No resolved problems to display. Patient ID: Toyin Coley is a 65 y.o. Female with PMH SIMMONS cirrhosis (bx- confirmed 08/2008),??hxlap ronnie,??HTN, HLD, DM2, GERD, hx TIA, CKD. Who is being admitted with acute pancreatitis following ERCP. 24 Hour Events/Subjective: - Yesterday, increased patient's fluids to 200cc/hr. Made NPO. - NAEO - This Am, her abdominal pain has resolved and she is feeling well. Vitals: Last value Range last 24 hrs Temperature Temp: 36.5 ??C (97.7 ??F) Temp: [36.5 ??C (97.7 ??F)-36.9 ??C (98.4 ??F)] Heart Rate Heart Rate: 71 Heart Rate: [71-81] Blood Pressure BP: 137/69 BP: (104-137)/(46-70) Respiratory Rate Resp: 18 Resp: [18-20] SpO2 SpO2: 95 % SpO2: [93 %-96 %] Ins/Outs: Intake/Output Summary (Last 24 hours) at 01/21/2021 0741 Last data filed at 01/21/2021 0355 Gross per 24 hour Intake 3466 ml Output 250 ml Net 3216 ml Patient Vitals for the past 168 hrs: Weight 01/17/21 1004 76.7 kg (169 lb) Physical Exam: Gen: moderate distress, A&Ox3 HEENT: sclera non-icteric, no conjunctival erythema, OP clear, MMM CV: RRR, no m/r/g, nl s1, s2 Pulm: CTA b/l, breathing non-labored Abd: soft, RUQ and epigastrium tender, ND, bowel sounds present Neuro: no focal deficits grossly noted. Orientation - person, place and time. Labs: Recent Labs 01/21/2144201/20/2141801/19/21 0306 WBC 16.4* 20.1* 20.0* HGB 10.5* 11.4* 12.9 PLATELET 92* 134* 149 Recent Labs 01/21/2144201/20/21 0419 01/19/21 0306 NA 131* 132* 135 K 4.4 3.5 3.6 CL 97* 97* 101 CO2 25 27 25 BUN 28* 19* 25* CREATININE 1.79* 1.06 0.98 Recent Labs 01/21/21 0443 01/20/21 0419 01/19/21 0306 01/17/212050 CALCIUM 8.7 9.1 9.2 10.2 10.2 MAGNESIUM 0.89 0.69 0.57* 0.63* PHOS -- -- -- 3.5 Recent Labs 01/17/212050 AST 224* ALT 152* ALKPHOS 111* BILITOT 0.6 BILIDIR 0.3 No results for input(s): TROPONINT, CK in the last 168 hours. No results for input(s): PHART, [id number], PO2ART, YVG0YEG in the last 168 hours. Inpatient Medications: Scheduled Meds: ??? acetaminophen 650 mg Oral Q6H BASIL ??? ibuprofen 400 mg Oral Q6H ??? polyethylene glycoL (MIRALAX) oral powder 17 g Oral BID ??? senna-docusate 1 tablet Oral Daily ??? lisinopriL 20 mg Oral Daily ??? pantoprazole EC 40 mg Oral Daily ??? sodium chloride 0.9 % (flush) 5 mL Intravenous BID ??? melatonin 3 mg Oral Nightly ??? gabapentin 200 mg Oral BID ??? gabapentin 100 mg Oral Daily at Noon ??? atorvastatin 40 mg Oral QPM ??? metoprolol succinate XL 50 mg Oral Daily ??? DULoxetine DR 30 mg Oral Daily ??? insulin lispro 1-4 Units Subcutaneous Q4H BASIL Continuous Infusions: ??? lactated Ringers 200 mL/hr (01/21/21 0358) PRN Meds:.HYDROmorphone OR HYDROmorphone OR HYDROmorphone, sodium chloride 0.9 % (flush), lidocaine, ondansetron OR ondansetron, glucose 40% oral geL OR dextrose 10% OR glucagon Assessment/Plan: Toyin Coley is a 65 y.o. 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 Who is being admitted with concerns of pancreatitis following ERCP. ?? Today, her abdominal pain has imprvoed and she has downtrending leukocytosis. Increased fluids and made NPO yesterday, per curbsiding GI. Will see about decreasing fluids again, but more slowly advancing diet. Patient would like solid food, so patient will start with full liquid for lunch with plans to advance further for dinner. Cr elevated this AM, unclear reason why given patient has been getting fluids. Will get repeat BMP this morning. ?? Plan: #Admit to hospital medicine ?? #Suspected pancreatitis 2/2 to ERCP - cw LR 150cc per hour - Tylenol 650mg Q6h prn - Zofran Q8h prn - Dilaudid PO pain scale - CT Abdomen/Pelvis w/ contrast as above - Advance diet as tolerated #elevated cr on 01/21 AM labs - Repeat BMP ?? #DM type II- no outpatient medications for management - Sensitive SSI - Hg A1c-7 ?? #Hypertension - Continue home lisinopril - hold home HCTZ in setting of fluids #Other home meds - Continue home duloxetine - Continue home gabapentin - Continue home protonix ?? #Routine DVT PPx: SCD Diet: full liquids Dispo: pending course Code Status: Full Code. Surrogate decision makers: [her] daughters Lisa L MD Reena PGY - 1, Internal Medicine 01/21/2021 Associated attestation - Travis Callahan MD - 01/21/2021 1:00 PM EDT Attending Attestation Please see Dr [...] of two midnights or [facility] procedure list (status C) due to: monitoring of fluid status given an inability to regulate fluid balance and the need for administration or restriction of fluids and uncontrolled pain requiring titration of medications to achieve optimal effect and to minimize immediate or severe side effects Improving abdominal pain this morning and improved appetite. Her pancreatitis appears to be improving, so we will taper pain medication, advance her diet, and ensure she can maintain her oral intake without IV fluids. New GETACHEW this morning, which could be secondary to ACEI and NSAID use vs renovascular congestion in the setting of aggressive fluids. Will hold ACEI and lisinopril and trend Cr. Principal Problem: Acute pancreatitis Active Problems: Cystic duct calculus Overview: Added automatically from request for surgery [id number] RUQ pain Overview: Added automatically from request for surgery [id number] Travis Callahan MD 01/21/2021 12:56 PM * Janet Rubi RN - 01/21/2021 5:28 AM EDT OUTCOME EVALUATION NOTE: OUTCOME SUMMARY: Pt a+ox4, VSS, c/o 8/10 pain, PRN dilaudid given with good effect. Pt using ice on abdomen with good effect as well. IVF continued. Pt desating while sleeping to 78%, placed on 2L NC. Safety maintained. No acute issues or events overnight. PLAN MOVING FORWARD: Continue to monitor. INDIVIDUALIZED FALL PREVENTION INTERVENTIONS: Patient-specific fall risk factors per assessment: [current deficits]: Generalized weakness, new environment, high fall risk Assistance [level of assistance required for transfers and ambulation]: SBA/Ind Supervision [direct monitoring required during toileting and ADLs]: Arms reach Surveillance [continuous indirect monitoring]: Masimo, purposeful rounding Patient-specific fall prevention interventions for sensory deficits provided, if applicable: [X] N/A CPG GOAL OUTCOME EVALUATION: * Lisa Valles MD - 01/20/2021 7:56 AM EDT Inpatient Medicine Progress Note Hospital Day 3 days Active Hospital Problems Diagnosis ??? Acute pancreatitis ??? Cystic duct calculus ??? RUQ pain Resolved Hospital Problems No resolved problems to display. Patient ID: Toyin Coley is a 65 y.o. Female with PMH SIMMONS cirrhosis (bx- confirmed 08/2008),??hxlap ronnie,??HTN, HLD, DM2, GERD, hx TIA, CKD. Who is being admitted with acute pancreatitis following ERCP. 24 Hour Events/Subjective: - Yesterday, reduced fluids from 200cc/hr to 100cc/hr. On dilaudid - NAEO - Says her abdominal pain is the same than yesterday. Located in epigastrium, RUQ, side, and back. - Denies fever/chills, lightheadedness, dizziness, chest pain, shortness of breath Vitals: Last value Range last 24 hrs Temperature Temp: 36.7 ??C (98.1 ??F) Temp: [36.7 ??C (98.1 ??F)-37.3 ??C (99.1 ??F)] Heart Rate Heart Rate: 67 Heart Rate: -- Blood Pressure BP: 136/72 BP: (134-179)/(64-95) Respiratory Rate Resp: 20 Resp: [17-21] SpO2 SpO2: 96 % SpO2: [88 %-96 %] Ins/Outs: Intake/Output Summary (Last 24 hours) at 01/20/2021 0756 Last data filed at 01/20/2021 0600 Gross per 24 hour Intake 3965 ml Output 550 ml Net 3415 ml Patient Vitals for the past 168 hrs: Weight 01/17/21 1004 76.7 kg (169 lb) Physical Exam: Gen: moderate distress, A&Ox3 HEENT: sclera non-icteric, no conjunctival erythema, OP clear, MMM CV: RRR, no m/r/g, nl s1, s2 Pulm: CTA b/l, breathing non-labored Abd: soft, RUQ and epigastrium tender, ND, bowel sounds present Neuro: no focal deficits grossly noted. Orientation - person, place and time. Labs: Recent Labs 01/20/2141801/19/21 0306 01/18/21 0400 WBC 20.1* 20.0* 13.1* HGB 11.4* 12.9 13.9 PLATELET 134* 149 180 Recent Labs 01/20/2141801/19/21 0306 01/18/21 0400 NA 132* 135 137 K 3.5 3.6 3.9 CL 97* 101 103 CO2 27 25 20* BUN 19* 25* 34* CREATININE 1.06 0.98 1.24* Recent Labs 01/20/21 0419 01/19/21 0306 01/18/21 0400 01/17/212050 CALCIUM 9.1 9.2 9.9 10.2 10.2 MAGNESIUM 0.69 0.57* 0.59* 0.63* PHOS -- -- -- 3.5 Recent Labs 01/17/212050 AST 224* ALT 152* ALKPHOS 111* BILITOT 0.6 BILIDIR 0.3 No results for input(s): TROPONINT, CK in the last 168 hours. No results for input(s): PHART, BVT2XLL, PO2ART, HLS1NNK in the last 168 hours. Inpatient Medications: Scheduled Meds: ??? lisinopriL 20 mg Oral Daily ??? pantoprazole EC 40 mg Oral Daily ??? sodium chloride 0.9 % (flush) 5 mL Intravenous BID ??? melatonin 3 mg Oral Nightly ??? gabapentin 200 mg Oral BID ??? gabapentin 100 mg Oral Daily at Noon ??? atorvastatin 40 mg Oral QPM ??? metoprolol succinate XL 50 mg Oral Daily ??? DULoxetine DR 30 mg Oral Daily ??? insulin lispro 1-4 Units Subcutaneous Q4H BASIL Continuous Infusions: PRN Meds:.HYDROmorphone OR HYDROmorphone OR HYDROmorphone, sodium chloride 0.9 % (flush), lidocaine, acetaminophen, ondansetron OR ondansetron, glucose 40% oral geL OR dextrose 10% OR glucagon Assessment/Plan: Toyin Coley is a 65 y.o. 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 Who is being admitted with concerns of pancreatitis following ERCP. ?? Today, her abdominal pain is stable and she has a high/stable leukocytosis. Due to concerns for evolution of her pancreatitis, a CTwas gotten yesterday with showed a stone and mild-moderate perihepatic ascites 2/2 to known pancreatitis. Waiting to hear back from GI if they have any other thoughts. Changing from IV to PO dilaudid for hopefully longer acting pain control. ?? Plan: #Admit to hospital medicine ?? #Suspected pancreatitis 2/2 to ERCP - cw LR 100cc per hour - Tylenol 650mg Q6h prn - Zofran Q8h prn - Dilaudid PO pain scale - CT Abdomen/Pelvis w/ contrast as above - Curbside GI ?? #DM type II- no outpatient medications for management - Sensitive SSI - Hg A1c-7 ?? #Hypertension - Continue home lisinopril - hold home HCTZ in setting of fluids #Other home meds - Continue home duloxetine - Continue home gabapentin - Continue home protonix ?? #Routine DVT PPx: SCD Diet: clear liquids Dispo: pending course Code Status: Full Code. Surrogate decision makers: [her] daughters Lisa Dominguez MD Reena PGY - 1, Internal Medicine 01/20/2021 Associated attestation - Travis Callahan MD - 01/20/2021 9:45 PM EDT Attending Attestation Please see Dr [...] for administration or restriction of fluids and uncontrolled pain requiring titration of medications to achieve optimal effect and to minimize immediate or severe side effects Ongoing leukocytosis, although she tells me that she has more of an appetite and her abdominal painis starting to seem more like her chronic LUQ pain than the epigastric pain she had on admission. Nonetheless, given the leukocytosis we'll err on the side of caution and continue bowel rest and aggressive fluids for today. Principal Problem: Acute pancreatitis Active Problems: Cystic duct calculus Overview: Added automatically from request for surgery [id number] RUQ pain Overview: Added automatically from request for surgery [id number] Travis Callahan MD 01/20/2021 9:40 PM * Freddie Montes MD - 01/19/2021 7:47 AM EDT Inpatient Medicine Progress Note Hospital Day 2 days Active Hospital Problems Diagnosis ??? Acute pancreatitis ??? Cystic duct calculus ??? RUQ pain Resolved Hospital Problems No resolved problems to display. Patient ID: Toyin Coley is a 65 y.o. female 24 Hour Events/Subjective: - NAEO - AVSS, but HTN - Says her abdominal pain is worse today than yesterday. Located in epigastrium, RUQ, side, and back. - Denies fever/chills, lightheadedness, dizziness, chest pain, shortness of breath Vitals: Last value Range last 24 hrs Temperature Temp: 36.2 ??C (97.2 ??F) Temp: [36.2 ??C (97.2 ??F)-37.1 ??C (98.8 ??F)] Heart Rate Heart Rate: 67 Heart Rate: -- Blood Pressure BP: 144/69 BP: (144-188)/(69-146) Respiratory Rate Resp: 17 Resp: [16-18] SpO2 SpO2: 93 % SpO2: [93 %-97 %] Ins/Outs: Intake/Output Summary (Last 24 hours) at 01/19/2021 0747 Last data filed at 01/18/2021 2331 Gross per 24 hour Intake 4172 ml Output 400 ml Net 3772 ml Patient Vitals for the past 168 hrs: Weight 01/17/21 1004 76.7 kg (169 lb) Physical Exam: Gen: moderate distress, A&Ox3 HEENT: sclera non-icteric, no conjunctival erythema, OP clear, MMM CV: RRR, no m/r/g, nl s1, s2 Pulm: CTA b/l, breathing non-labored Abd: soft, RUQ and epigastrium tender, ND, bowel sounds present Neuro: no focal deficits grossly noted. Orientation - person, place and time. Labs: Recent Labs 01/19/2130501/18/2139901/17/212050 WBC 20.0* 13.1* 13.8* HGB 12.9 13.9 14.2 PLATELET 149 180 186 Recent Labs 01/19/21 0306 01/18/21 0400 01/17/212050 NA 135 137 138 K 3.6 3.9 4.1 CL 101 103 101 CO2 25 20* 20* BUN 25* 34* 36* CREATININE 0.98 1.24* 1.20 Recent Labs 01/19/21 03001/18/2139901/17/212050 CALCIUM 9.2 9.9 10.2 10.2 MAGNESIUM 0.57* 0.59* 0.63* PHOS -- -- 3.5 Recent Labs 01/17/212050 AST 224* ALT 152* ALKPHOS 111* BILITOT 0.6 BILIDIR 0.3 No results for input(s): TROPONINT, CK in the last 168 hours. No results for input(s): PHART, KTC6ZRZ, PO2ART, ZWD8ZXG in the last 168 hours. Inpatient Medications: Scheduled Meds: ??? lisinopriL 20 mg Oral Daily ??? pantoprazole EC 40 mg Oral Daily ??? sodium chloride 0.9 % (flush) 5 mL Intravenous BID ??? melatonin 3 mg Oral Nightly ??? gabapentin 200 mg Oral BID ??? gabapentin 100 mg Oral Daily at Noon ??? atorvastatin 40 mg Oral QPM ??? metoprolol succinate XL 50 mg Oral Daily ??? DULoxetine DR 30 mg Oral Daily ??? insulin lispro 1-4 Units Subcutaneous Q4H BASIL Continuous Infusions: ??? lactated Ringers 200 mL/hr (01/19/21 0430) PRN Meds:.oxyCODONE, sodium chloride 0.9 % (flush), lidocaine, acetaminophen, ondansetron OR ondansetron, glucose 40% oral geL OR dextrose 10% OR glucagon Assessment/Plan: Toyin Coley is a 65 y.o. 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 Who is being admitted with concerns of pancreatitis following ERCP. ?? Today, her abdominal pain is worse and she has a rising leukocytosis. I am concerned for evolution of her pancreatitis and wonder if she would benefit from surgical evaluation. We will obtain a CT for now to better characterize the nature of her abdominal pain and assess for changes to her pancreas. She also continues to endorse significant pain so we will switch her from PO meds to IV dilaudid. ?? Plan: #Admit to hospital medicine ?? #Suspected pancreatitis 2/2 to ERCP - cw LR 200cc per hour - Tylenol 650mg Q6h prn - Zofran Q8h prn - Dilaudid IV pain scale - CT Abdomen/Pelvis w/ contrast ?? #DM type II- no outpatient medications for management - Sensitive SSI - F/u Hg A1c ?? #Hypertension - Continue home lisinopril - hold home HCTZ in setting of fluids - stopping labetalol for SBP >190 #Other home meds - Continue home duloxetine - Continue home gabapentin - Continue home protonix ?? #Routine DVT PPx: SCD Diet: NPO, consider advancing tomorrow Dispo: pending course Code Status: Full Code. Surrogate decision makers: [her] daughters Freddie MD Simon PGY - 3, Internal Medicine 01/19/2021 Associated attestation - Travis Callahan MD - 01/19/2021 7:26 PM EDT Attending Attestation Please see Dr [...] of two midnights or is on the [facility] only procedure list (status C) due to: monitoring of fluid status given an inability to regulate fluid balance and the need for administration or restriction of fluids and uncontrolled pain requiring titration of medications to achieve optimal effect and to minimize immediate or severe side effects Worsening abdominal pain today with concerning features on abdominal exam. We will ensure her pain is addressed by adding IV opiates today. Will transition to PO opiates as soon as we are able. We will also obtain CT a/p with contrast to rule out complication of pancreatitis that may require surgical management. She has been adequately volume resuscitated so we will continue IV fluid to replace losses given poor PO intake but will stop aggressive fluids. Principal Problem: Acute pancreatitis Active Problems: Cystic duct calculus Overview: Added automatically from request for surgery [id number] RUQ pain Overview: Added automatically from request for surgery [id number] Travis Callahan MD 01/19/2021 7:21 PM * Cindy Cervnates RN - 01/18/2021 10:02 PM EDT Pt BP 183/101, asymptomatic. MD notified, no orders received. Will continue to monitor. Cindy Cervantes RN * Pricila Mcpherson RN - 01/18/2021 6:26 PM EDT OUTCOME EVALUATION NOTE: OUTCOME SUMMARY: Pt denies CP, SOB, dizziness, or n/t. Pt's pain is adequately managed with PRN pain meds (see MAR).She reports intermittent nausea - PRN meds offered, but declined. No emesis this shift. Pt able to take PO meds. No acute events. See doc flowsheet for full pt assessment. Call cunningham within reach. VSS. No further needs at this time. PLAN MOVING FORWARD: Pain management, nausea management, d/c planning INDIVIDUALIZED FALL PREVENTION INTERVENTIONS: Patient-specific fall risk factors per assessment: [current deficits]: Hospital environment, lines/devices Assistance [level of assistance required for transfers and ambulation]: SBA Supervision [direct monitoring required during toileting and ADLs]: SBA Surveillance [continuous indirect monitoring]: Masimo, hourly rounding Patient-specific fall prevention interventions for sensory deficits provided, if applicable: [X] N/A * Lisa Valles MD - 01/18/2021 7:36 AM EDT Inpatient Medicine Progress Note Hospital Day 1 day Active Hospital Problems Diagnosis ??? Acute pancreatitis ??? PONV (postoperative nausea and vomiting) ??? Cystic duct calculus ??? RUQ pain Resolved Hospital Problems No resolved problems to display. Patient ID: Toyin Coley is a 65 y.o. female 24 Hour Events/Subjective: - Yesterday, admitted to hospital medicine. Started on IVF, tylenol, and zofran. Lipase >3000 - Overnight nausea and gave 1x compazine. Patient's SBP >180 and given labetalol. - This AM, patient continues to have abdominal pain. Vitals: Last value Range last 24 hrs Temperature Temp: 36.5 ??C (97.7 ??F) Temp: [36.5 ??C (97.7 ??F)-37 ??C (98.6 ??F)] Heart Rate Heart Rate: 67 Heart Rate: -- Blood Pressure BP: (!) 188/133 BP: (151-196)/(64-146) Respiratory Rate Resp: 16 Resp: [15-18] SpO2 SpO2: 95 % SpO2: [94 %-100 %] Ins/Outs: Intake/Output Summary (Last 24 hours) at 01/18/2021 1201 Last data filed at 01/18/2021 1127 Gross per 24 hour Intake 2635 ml Output 625 ml Net 2010 ml Patient Vitals for the past 168 hrs: Weight 01/17/21 1004 76.7 kg (169 lb) Physical Exam: Gen: NAD, A&Ox3 HEENT: sclera non-icteric, no conjunctival erythema, OP clear, MMM CV: RRR, no m/r/g, nl s1, s2 Pulm: CTA b/l, breathing non-labored Abd: soft, RUQ and epigastric tender, ND, bowel sounds present Neuro: no focal deficits grossly noted. Orientation - person, place and time. Labs: Recent Labs 01/18/21 0400 01/17/212050 WBC 13.1* 13.8* HGB 13.9 14.2 PLATELET 180 186 Recent Labs 01/18/21 0400 01/17/212050 NA 137 138 K 3.9 4.1 CL 103 101 CO2 20* 20* BUN 34* 36* CREATININE 1.24* 1.20 Recent Labs 01/18/21 0400 01/17/212050 CALCIUM 9.9 10.2 10.2 MAGNESIUM 0.59* 0.63* PHOS -- 3.5 Recent Labs 01/17/212050 AST 224* ALT 152* ALKPHOS 111* BILITOT 0.6 BILIDIR 0.3 No results for input(s): TROPONINT, CK in the last 168 hours. No results for input(s): PHART, VTK2WVH, PO2ART, LTE5TJN in the last 168 hours. Inpatient Medications: Scheduled Meds: ??? hydroCHLOROthiazide 25 mg Oral Daily ??? lisinopriL 10 mg Oral Daily ??? pantoprazole EC 40 mg Oral Daily ??? sodium chloride 0.9 % (flush) 5 mL Intravenous BID ??? melatonin 3 mg Oral Nightly ??? gabapentin 200 mg Oral BID ??? gabapentin 100 mg Oral Daily at Noon ??? atorvastatin 40 mg Oral QPM ??? metoprolol succinate XL 50 mg Oral Daily ??? DULoxetine DR 30 mg Oral Daily ??? insulin lispro 1-4 Units Subcutaneous Q4H BASIL Continuous Infusions: ??? lactated Ringers 200 mL/hr (01/18/21 0751) PRN Meds:.labetaloL, sodium chloride 0.9 % (flush), lidocaine, acetaminophen, ondansetron OR ondansetron, glucose 40% oral geL OR dextrose 10% OR glucagon Assessment/Plan: Toyin Coley is a 65 y.o. 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 Who is being admitted with concerns of pancreatitis following ERCP. ?? Patient developed abdominal pain following her ERCP. Concerns of pancreatitis 2/2 to ERCP given abdominal pain characterization and elevated lipase. Will conitnue pain management and fluids, with plan to discharge over the weekend if patient has improved. ?? Plan: #Admit to hospital medicine ?? #Suspected pancreatitis 2/2 to ERCP Lipase >3000 01/17 - cw LR 200cc per hour - Tylenol 650mg Q6h prn - Zofran Q8h prn - Oxycodone 5mg q4h prn ?? #DM type II- no outpatient medications for management - Sensitive SSI - F/u Hg A1c ?? #Hypertension - Continue home lisinopril - hold home HCTZ in setting of fluids - stopping labetalol for SBP >190 #Other home meds - Continue home duloxetine - Continue home gabapentin - Continue home protonix ?? #Routine DVT PPx: SCD Diet: NPO, consider advancing tomorrow Dispo: pending course Code Status: Full Code. Surrogate decision makers: [her] daughters Lisa Valles MD PGY - 1, Internal Medicine 01/18/2021 Associated attestation - Travis Callahan MD - 01/18/2021 9:54 PM EDT See full attestation on 01/17/21 H&P. documented in this encounter H&P Notes * Lisa Valles MD - 01/17/2021 5:04 PM EDT Inpatient Medicine - Admission Note Patient Name: Toyin Coley Patient Age: 65 y.o. Admit date: 01/17/2021 Attending Physician: Eliel Leigh MD Problem List: Active Hospital Problems Diagnosis ??? Cystic duct calculus ??? RUQ pain Resolved Hospital Problems No resolved problems to display. Active Non-Hospital Problems Diagnosis ??? Toxic metabolic encephalopathy ??? Acute cystitis ??? Anxiety ??? Diabetic neuropathy ??? Nonalcoholic steatohepatitis ??? Restless legs syndrome (RLS) ??? CKD (chronic kidney disease) ??? Delirium ??? Hyperlipidemia ??? Hypertension ??? Diabetes mellitus type 2, uncomplicated ??? Hx-TIA (transient ischemic attack) ??? GERD (gastroesophageal reflux disease) ??? Environmental allergies ID: Toyin Coley is a 65 y.o. Female with PMH SIMMONS cirrhosis (bx-confirmed 08/2008), hx lap ronnie, HTN, HLD, DM2, GERD, hx TIA, CKD. Who is being admitted with concerns of pancreatitis following ERCP. PCP: Asia Gil, History of Present Illness (obtained from patient, and eDH chart review): Toyin Coley is a 65 y.o. Female with PMH SIMMONS cirrhosis (bx-confirmed 08/2008), hx lap ronnie, HTN, HLD, DM2, GERD, hx TIA, CKD. Who is being admitted with concerns of pancreatitis following ERCP. Patient had years-long hx of RUQ and R flank pain despite hx of CCY. Labs unrevealing. Patient underwent recent EGD and colonoscopy (12/25/20) looking for a source of pain,now s/p multiple polyps resected. Patient was then referred for RUQ U/S noting a retained stone in a cystic duct remnant v infundibulum w/ surrounding wall thickening. Patient was taken for ERCP today for retrieval of stone. Following ERCP patient awoke with abdominal pain. She currently described her pain as being punched in the gut and hurts everywhere. She rates it 7/10. Pain is constant. Has not received any medications to help with the pain. Middle of back hurts as well. She has 1x episode of vomiting, without blood. She has a little SOB. She has been oscillating between hot and cold. Denies chest pain, changes in urinary, fever, and chills. Of note, she smokes medical marijuana nightly. Patient denies cigarette smoking, alcohol use, or other drug use. Review of Systems Negative except for above Past Medical and Surgical History: Past Medical History: Diagnosis Date ??? CKD (chronic kidney disease) 04/05/2020 ??? Delirium 04/05/2020 ??? Diabetes mellitus type 2, uncomplicated 05/14/2014 ??? Hx-TIA (transient ischemic attack) 05/14/2014 ??? Hyperlipidemia 05/28/2014 Off statin due to foot pain side effect ??? Hypertension 05/28/2014 ??? Restless legs syndrome (RLS) 04/05/2020 No past surgical history on file. Prior To Admission Medications: Medications Prior to Admission Medication Sig Dispense Refill Last Dose ??? lisinopriL (Prinivil;Zestril) 10 mg Tablet Take 1 tablet by mouth daily. 90 tablet 3 01/16/2021 at Unknown time ??? mirtazapine (REMERON) 7.5 mg Tablet Take 7.5 mg by mouth nightly. 01/16/2021 at Unknown time ??? nortriptyline (Pamelor) 10 mg Capsule Take 20 mg by mouth nightly. 01/16/2021 at Unknown time ??? pantoprazole (PROTONIX) 40 mg tablet Take 1 tablet by mouth daily. 90 tablet 3 01/16/2021 at Unknown time ??? hydrochlorothiazide (HYDRODIURIL) 25 mg tablet Take 25 mg by mouth daily. 01/16/2021 at Unknown time ??? multivitamin (THERAGRAN) Tablet Take 1 tablet by mouth daily. Allergies: Allergies Allergen Reactions ??? Benzodiazepines Other (See Comments) Paradoxical reaction to benzodiazepines ??? House Dust ??? Hydrocodone-Acetaminophen Itching ??? Metoclopramide ??? Mold Extracts ??? Pollen Extracts ??? Propoxyphene Hcl Nausea And Vomiting ??? Unknown [Unclassified Drug] Most environmental allergies: grass, workman, trees,pollen Family History: No family history on file. Social History and Habits: Social History Socioeconomic [...] Gatherings with Friends and Family: ??? Attends Congregational Services: ??? Active Member of Clubs or Organizations: ??? Attends Club or Organization Meetings: ??? Marital Status: Intimate Partner Violence: ??? Fear of Current or Ex-Partner: ??? Emotionally Abused: ??? Physically Abused: ??? Sexually Abused: Physical Exam: Last Set of Vitals and range of vitals over past 24 hours: Last value Range last 24 hrs Temperature Temp: 36.4 ??C (97.6 ??F) Temp: [36.4 ??C (97.6 ??F)] Heart Rate Heart Rate: 67 Heart Rate: [67] Blood Pressure BP: 179/64 BP: (143-189)/(64-96) Respiratory Rate Resp: 16 Resp: [15-18] SpO2 SpO2: 98 % SpO2: [98 %-100 %] Gen: lying in stretcher, opened eye to instruction but kept close for the remainder of interview and exam CV: Tachycardic, regular rhythm, 1/6 systolic heard best RU sternal border Pulm: Normal respiratory effort, speaking normally, no audible respiratory sounds, clear to auscultation bilaterally, normal expiratory phase, no rales/rhonchi/wheezes, Abd: Non-distended, normal bowel sounds in all 4 quadrants, soft, epigastric and RUQ pain to light palpation Ext: No pedal edema, 2+ radial/DP pulses Skin: Warm, dry, no rashes Neuro: Alert and orientedx4, appropriate, CN 2-12 grossly intact, No focal deficits. Laboratory (Last 24 Hours): Recent Results (from the past 24 hour(s)) POCT Glucose Result Value Ref Range POC Glucose 130 65 - 199 mg/dL Studies: Assessment: Toyin Coley is a 65 y.o. Female with PMH SIMMONS cirrhosis (bx-confirmed 08/2008), hx lap ronnie, HTN, HLD, DM2, GERD, hx TIA, CKD. Who is being admitted with concerns of pancreatitis following ERCP. Patient developed abdominal pain following her ERCP. Concerns of pancreatitis 2/2 to ERCP. Will admit for pain management and fluids, with plan to discharge over the weekend if patient has improved. Plan: #Admit to hospital medicine #Suspected pancreatitis 2/2 to ERCP - F/u lipase - Start LR 200cc per hour - Tylenol 650mg Q6h prn - Zofran Q8h prn - Could consider adding oxy for pain if needed #DM type II- managed with diet and exercise? No - Sensitive SSI #Other home meds - Continue home lisnipril - Continue home duloxetine - Continue home gabapentin - Continue home HCTZ - Continue home protonix #Routine DVT PPx: SCD Diet: NPO, consider advancing tomorrow Dispo: pending course Code Status: Full Code. Surrogate decision makers: [her] daughters Lisa Dominguez MD Reena PGY-1 Admitting to [id number] 01/17/2021 Associated attestation - Travis Callahan MD - 01/18/2021 9:53 PM EDT Attending Attestation Please see Reena's note for details of the patient history [...] of two midnights or is on the [facility] only procedure list (status C) due to: monitoring of fluid status given an inability to regulate fluid balance and the need for administration or restriction of fluids and uncontrolled pain requiring titration of medications to achieve optimal effect and to minimize immediate or severe side effects The patient is a 65 year old woman with a history of SIMMONS cirrhosis, T2DM, CKD II who is presentingwith severe epigastric pain radiating to the back after ERCP. Her lipase was found to be > 3000. Today she has ongoing abdominal pain and nausea, although later in the day she felt as though she might be able to eat something. For her post-ERCP pancreatitis we will treat her pain with oral oxycodone for now. We will continueIV fluids overnight given only a small decrease in her BUN and hematocrit but will monitor closely for volume overload. Will monitor her pain after starting a diet. Her tachycardia and hypertension are likely driven by her pain and pancreatic inflammation. We willincrease her lisinopril for now with caution for renal insufficiency. Principal Problem: Acute pancreatitis Active Problems: Cystic duct calculus Overview: Added automatically from request for surgery [id number] RUQ pain Overview: Added automatically from request for surgery [id number] Travis Callahan MD 01/18/2021 9:46 PM * Eliel Leigh MD - 01/17/2021 11:37 AM EDT Procedure: ercp Indication: choledocholithiasis History of Present Illness: Toyin Coley is a 65 y.o. w/ SIMMONS cirrhosis, years-long hx of RUQ and R flank pain, Hx ccy, RUQ U/S noting a retained stone in a cystic duct remnant v infundibulum w/ surrounding wall thickening. ?? Patient Active Problem List Diagnosis Code ??? [...] duct calculus K80.20 ??? RUQ pain R10.11 Medications: Reviewed in [facility] Allergies Allergen Reactions [...] for the past 24 hrs: Temp Pulse BP SpO2 O2 Device 01/17/21 1004 36.4 ??C (97.6 ??F) 67 (!) 143/96 100 % RA Axox3, nad Anicteric, MMM CTAB RRR, no m/r/g abd soft nt nd +bs Assessment and Plan: Proceed with ERCP: ASA Grade: ASA 3 - Patient with moderate systemic disease with functional limitations Mallampati score:II (soft palate, uvula, fauces visible) Sedation plan: GETA Risks and benefits of the procedure were discussed with the patient. Consent has been signed. Eliel Leigh MD documented in this encounter Miscellaneous Notes * Plan of Care - Brittny Hallman RN - 01/27/2021 4:14 AM EDT OUTCOME EVALUATION NOTE: OUTCOME SUMMARY: A&O x4, VSS, RA, complained of pain in her feet that was relieved with bengay and back pain relieved by lidocain patches, assessment as documented. Pt appeared to be resting comfortably in bed much of the night. No acute events, able to make needs known, safety maintained, will continue to monitor. PLAN MOVING FORWARD: D/C planning Pain management INDIVIDUALIZED FALL PREVENTION INTERVENTIONS: Patient-specific fall risk factors per assessment: [current deficits]: med fall risk Assistance [level of assistance required for transfers and ambulation]: independent Supervision [direct monitoring required during toileting and ADLs]: independent Surveillance [continuous indirect monitoring]: Purposeful hourly rounding, call cunningham within reach, rings appropriately, room near nurses station Patient-specific fall prevention interventions for sensory deficits provided, if applicable: [X] No CPG GOAL OUTCOME EVALUATION: * Plan of Care - Deidra Black - 01/26/2021 4:35 PM EDT OUTCOME EVALUATION NOTE: OUTCOME SUMMARY: Pt A&O x4, VSS on RA Pt c/o 8/10 pain in lower back, PRN tylenol x2 and ibuprofen administered to good effect Continuous IV fluids stopped Diet advanced PO K administered per orders Up to toilet to void, only smear of stool noted today, no BMs Safety maintained and no further events PLAN MOVING FORWARD: IV fluids, Monitor bowel movements, Manage nausea and pain INDIVIDUALIZED FALL PREVENTION INTERVENTIONS: Patient-specific fall risk factors per assessment: [current deficits]: LDAs, Generalized weakness Assistance [level of assistance required for transfers and ambulation]: SBA/IND Supervision [direct monitoring required during toileting and ADLs]: Eyes on/IND Surveillance [continuous indirect monitoring]: Environmental surveillance, purposeful rounding, call cunningham within reach * Plan of Care - Deidra Black - 01/25/2021 5:38 PM EDT OUTCOME EVALUATION NOTE: OUTCOME SUMMARY: Pt A&O x4, VSS with tachycardia and high BP this AM with pain and nausea Pt c/o chest pain this AM, EKG ordered with insignificant results Cardiac medications administered per orders to good effect IV Reglan and Zofran administered to good effect IV mag administered per orders, pt refused PO potassium due to nausea this morning, MDs aware Pt resting most of the day and vital signs, pain and nausea improved this afternoon Continuous fluids started Clear liquids diet started 2 loose liquid BMs this AM Safety maintained and no further events PLAN MOVING FORWARD: IV fluids, Monitor bowel movements, Manage nausea and pain INDIVIDUALIZED FALL PREVENTION INTERVENTIONS: Patient-specific fall risk factors per assessment: [current deficits]: LDAs, Generalized weakness Assistance [level of assistance required for transfers and ambulation]: SBA/IND Supervision [direct monitoring required during toileting and ADLs]: Eyes on/IND Surveillance [continuous indirect monitoring]: Environmental surveillance, purposeful rounding, call cunningham within reach * Plan of Care - Tracy Mancini RN - 01/24/2021 4:22 PM EDT OUTCOME EVALUATION NOTE: OUTCOME SUMMARY: Morning shift assessment done, scheduled Meds given per order, one time order of Ten pills of Senna, assisted Pt walk around unit for 4 laps, Pt does not have BM today, Pt keeping ate 25% of meal anddrinking well, no emesis. Pt denies abd tenderness, abd is firm on palpation audible BS on 4 quadrants. No event, safety maintained. PLAN MOVING FORWARD: Fall risk precaution and safety maintained Continued on ambulated Pt on unit Continue BM regimen Encourage PO intake Pain/nausea management INDIVIDUALIZED FALL PREVENTION INTERVENTIONS: Patient-specific fall risk factors per assessment: [current deficits]: high fall risk, IV, Masimo. Assistance [level of assistance required for transfers and ambulation]: stand by assist. Supervision [direct monitoring required during toileting and ADLs]: eyes on. Surveillance [continuous indirect monitoring]: purpose rounding, call cunningham in reaching, bed alarm. * Plan of Care - Yvonne Gaines RN - 01/23/2021 4:53 PM EDT OUTCOME EVALUATION NOTE: OUTCOME SUMMARY: Assessment done and meds given per order. Soap suds enema given this AM per order. Pt has not had any solid stool output only brown liquid post enema. Pt unable to take PO pills this AM d/t nausea and emesis. Pt c/o back pain but denies abdominal pain this AM. However, pt did endorse abdominal discomfort this afternoon. Ice pack applied per pt request. Abdominal firm. PRN reglan added per team; given 1x. Lactulose, miralax, and senna ordered. Pt unable to take senna but sipped on water with miralax. Pt resting in bed. Safety maintained. PLAN MOVING FORWARD: Encourage ambulation and fluids as tolerated Prn nausea meds Bowel management INDIVIDUALIZED FALL PREVENTION INTERVENTIONS: Patient-specific fall risk factors per assessment: [current deficits]: High falls risk, IV, Masimo,pain Assistance [level of assistance required for transfers and ambulation]: SBA Supervision [direct monitoring required during toileting and ADLs]: Eyes on Surveillance [continuous indirect monitoring]: Purposeful rounding, call cunningham in reach, bed alarm on * Plan of Care - Jennifer Menjivar - 01/22/2021 2:37 PM EDT OUTCOME EVALUATION NOTE: OUTCOME SUMMARY: Pt A&OX$, Pt VSS. Complained of back pain rating 7/10, heating pad was ordered to help alleviate pain. Patient asleep during afternoon. Safety checks maintained. Will continue to monitor. PLAN MOVING FORWARD: Continue to monitor Vital signs Labs INDIVIDUALIZED FALL PREVENTION INTERVENTIONS: Patient-specific fall risk factors per assessment: [current deficits]: Generalized weakness, high fall risk Assistance [level of assistance required for transfers and ambulation]: SBA w/ FWW Supervision [direct monitoring required during toileting and ADLs]: Arms reach Surveillance [continuous indirect monitoring]: Masimo, purposeful rounding, alarm audible Patient-specific fall prevention interventions for sensory deficits provided, if applicable: [X] Yes, bed lowest position, wheels locked, side rails up X2, call cunningham within reach CPG GOAL OUTCOME EVALUATION: * Plan of Care - Delma Huitron RN - 01/21/2021 6:34 PM EDT OUTCOME EVALUATION NOTE: OUTCOME SUMMARY: Pt A&Ox4;VSS on RA;complained of 6/10 right flank and back pain- 1x 2mg Dilaudid given Complained of nausea-1x PRN zofran given Due meds given-see MAR Assessment as documented Maintenance IV d/c today No acute events;will continue to monitor PLAN MOVING FORWARD: Pain Management Blood glucose check D/C planning when medically appropriate INDIVIDUALIZED FALL PREVENTION INTERVENTIONS: Patient-specific fall risk factors per assessment: [current deficits]: Masimo;PIV; pain Assistance [level of assistance required for transfers and ambulation]: IND;SBA Supervision [direct monitoring required during toileting and ADLs]: eyes on Surveillance [continuous indirect monitoring]: purposeful hourly rounding;callbell within reach;room near nurses station Patient-specific fall prevention interventions for sensory deficits provided, if applicable: Yes CPG GOAL OUTCOME EVALUATION: * Plan of Care - Delma Huitron RN - 01/20/2021 6:27 PM EDT OUTCOME EVALUATION NOTE: OUTCOME SUMMARY: 65 years old admitted as a case of acute Pancreatitis, A&Ox4; VSS on RA Complained of intermittent right flank pain [id number]-PRN dilaudid given; Advil and Tylenol-see MAR Assessment as documented Due meds given-see MAR Started on LR 200ml/hour SBA-up to toilet Ok for ice chips per team care Needs attended No acute events;will continue to monitor PLAN MOVING FORWARD: IV maintenance Pain Management INDIVIDUALIZED FALL PREVENTION INTERVENTIONS: Patient-specific fall risk factors per assessment: [current deficits]: Masimo; PIV; Pain Assistance [level of assistance required for transfers and ambulation]: SBA Supervision [direct monitoring required during toileting and ADLs]: eyes on;hands on Surveillance [continuous indirect monitoring]: purposeful hourly rounding;callbell within reach;bedalarm on; room near nurses station Patient-specific fall prevention interventions for sensory deficits provided, if applicable: Yes CPG GOAL OUTCOME EVALUATION: * Plan of Care - Shannon Rose RN - 01/20/2021 3:29 AM EDT OUTCOME EVALUATION NOTE: OUTCOME SUMMARY: Pt A+Ox4. Pt tachycardic w/ activity, HR up to 120s. VS otherwise stable on RA. Pt denies having any chest pain or SOB. Pt reported constant 8/10 abd pain; given PO tylenol x1, 0.6mg IV dilaudid x3, and 0.2mg IV dilaudid x1 (additional dose per MD order) with fair effect. Other medications administered, see MAR. Blood glucose checks done, see results review. Pt OOB to bathroom with staff overnight. Pt rested comfortably between care. Safety maintained. No further events. PLAN MOVING FORWARD: Pain management, medication administration, blood glucose checks, discharge planning INDIVIDUALIZED FALL PREVENTION INTERVENTIONS: Patient-specific fall risk factors per assessment: [current deficits]: Pain, generalized weakness, IV sites Assistance [level of assistance required for transfers and ambulation]: SBA Supervision [direct monitoring required during toileting and ADLs]: Eyes on Surveillance [continuous indirect monitoring]: Purposeful rounding, room near nurse's station, safety checks Patient-specific fall prevention interventions for sensory deficits provided, if applicable: [X] Yes CPG GOAL OUTCOME EVALUATION: * Plan of Care - Brian Valencia RN - 01/19/2021 5:36 PM EDT OUTCOME EVALUATION NOTE: OUTCOME SUMMARY: Patient oriented throughout the shift. Patient having significant abdominal pain but her pain has responded well to IV dilaudud. Patient taking PO fluids without difficulty and her nausea has subsided and she believes this is because she is no longer taking the oxycodone. Patient down to CT this evening. PLAN MOVING FORWARD: Encourage PO, Monitor pain and labs INDIVIDUALIZED FALL PREVENTION INTERVENTIONS: Patient-specific fall risk factors per assessment: [current deficits]: IV narcotics Assistance [level of assistance required for transfers and ambulation]: Standby Supervision [direct monitoring required during toileting and ADLs]: Arms reach Surveillance [continuous indirect monitoring]: pulse oximetry Patient-specific fall prevention interventions for sensory deficits provided, if applicable: CPG GOAL OUTCOME EVALUATION: * Initial Assessments - Nadia Mccartney RN - 01/19/2021 4:15 PM EDT Office of Care Management Initial Assessment Nadia Mccartney RN reviewed record Source of Information: medical record Reason for Hospitalization: 65 y.o. 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 Who is being admitted with concerns of pancreatitis following ERCP. ?? Hospitalizations Within the Past 30 Days: No - endoscopy for ERCP 01/17/21 Anticipated Length Of Stay (If known): 2-3 days Current Decision-Making Capacity: Self. No AD on file. If AD's have not been completed unable, daughters Linda Bacon and Silvana Coley would be surrogate decision maker per [place] decision making law. (Only good for 90 days) Any patient receiving care at [facility] must abide by [place] law. The hierarchy for surrogate decision making is: (a) Patient???s spouse, or civil union partner or common law spouse unless there is a Rhona patientreceiving care at [facility] must abide by [place] law. The hierarchy for surrogate decision making [...] (i) The agent with financial power of staff attorney or a conservator appointed in accordance with [place] 464-A. (j) The guardian of the patient???s estate. Current Coping/Education/Information Needs: none noted Current Functional Ability: unable to assess Functional Status Prior to Admission: unable to assess Home Environment: lives in small house w/4 steps to enter her bed/bath all on the first floor. She has a granddaughter that stays in the upstairs bedroom Social & Family Supports/Community Resources: family and friends support Behavioral Health History: none noted Substance Use/Abuse: smokes medical marijuana nightly. Denies smoking, alcohol or other drug use. Other Pertinent/Service Specific Information: n/a Health/Prescription Coverage: Primary Insurance: [employer] MANAGED MEDICARE Secondary Insurance: [employer] [place] Prescription Coverage: yes Preferred [facility]acy: [facility] Other: Primary Care Provider: Asia Gil DO [phone] Patient/Caregiver Goals of Treatment: relieve pain and return home Potential Needs for Transition of Care: Rehab/SNF: not at this time Home Health: none at this time DME: none needed at this time Dialysis: not at this time Community Resources: no Transportation: pt drives as does her daughters Other: Anticipated Barriers to Discharge/Special Considerations: none at this time Assessment: Possible pancreatitis from ERCP. Per notes, team to manage pain and give IVF and hope to dc soon. Plan: A member of the Care Management team will continue to monitor progress, follow for continuityof care and assist with transition of care planning. Nadia Mccartney, RN Weekend housing case manager coverage. * Plan of Care - Cindy Cervantes RN - 01/19/2021 2:56 AM EDT OUTCOME EVALUATION NOTE: OUTCOME SUMMARY: Pt A&Ox4. VSS on RA except for elevated blood pressures, MD aware. Pt c/o 8/ pain this shift,given prn oxycodone, see MAR. Given prn zofran x1 for nausea. No vomiting overnight. Pt resting in between care. Pt resting in bed safety maintained. PLAN MOVING FORWARD: Pain control, monitor N/V INDIVIDUALIZED FALL PREVENTION INTERVENTIONS: Patient-specific fall risk factors per assessment: [current deficits]: IV access, gen weakness Assistance [level of assistance required for transfers and ambulation]: SBA Supervision [direct monitoring required during toileting and ADLs]: Eyes on Surveillance [continuous indirect monitoring]: Masimo Patient-specific fall prevention interventions for sensory deficits provided, if applicable: [X] N/A CPG GOAL OUTCOME EVALUATION: * Plan of Care - Floridalma Toledo RN - 01/18/2021 5:06 AM EDT OUTCOME EVALUATION NOTE: OUTCOME SUMMARY: Pt A+Ox4, VSS over shift. Pt appears asleep between care, assessment as filed. IVF maintained. Pt having nausea/small amounts of clear/wellington emesis with movement, MD aware, see MAR for PRN medication administrations. BPs elevated overnight, SBPs >180 (see doc flow), MD aware. IV labetalol administered x2 (see MAR) with little effect, MD aware. Pt asymptomatic at this time, new orders placed. This AM pt reporting continued nausea despite PRNs, MD aware, no new interventions ordered. No acute events, will continue to monitor and page with updates. PLAN MOVING FORWARD: IVF, nausea management INDIVIDUALIZED FALL PREVENTION INTERVENTIONS: Patient-specific fall risk factors per assessment: [current deficits]: Weakness, IV access Assistance [level of assistance required for transfers and ambulation]: SBA Supervision [direct monitoring required during toileting and ADLs]: Eyes on Surveillance [continuous indirect monitoring]: Purposeful hourly rounding, call cunningham within reach, rings appropriately, room near unit station, bed alarm set Patient-specific fall prevention interventions for sensory deficits provided, if applicable: [X] Yes CPG GOAL OUTCOME EVALUATION: * Op Note - Eliel Leigh MD - 01/17/2021 11:57 AM EDT [facility] Operative Note Patient Name: Toyin Coley : [id number] MR#: [id number] Case Date: 01/17/2021 Surgeon: Surgeon(s) and Role: * Eliel Leigh MD - Primary Preoperative diagnosis: Chronic RUQ/R flank pain. Hx of CCY. Found to have stone in cystic duct v infundibulum on recent RUQ U/S. Postoperative diagnosis: * No post-op diagnosis entered * Procedure(s): ERCP Please see Provation report for details. documented in this encounter Plan of Treatment Upcoming Encounters Date Type Department Care Team (Latest Contact Info) Description 05/08/2024 10:30 AM EDT Hospital En[place] [address] Bk Contreras MD [facility] [place] [address] 05/08/2024 10:30 AM EDT - 05/08/2024 11:00 AM EDT [place] [address] Bk Contreras MD [facility] [place] [address] INJECTION, ANESTHETIC AGENT AND/OR STEROID, TRANSFORAMINAL EPIDURAL, LUMBAR OR SACRAL, SINGLE LEVEL (WRVU 1.9) 05/12/2024 1:00 PM EDT Office Visit Cardiology at [address] [address] Sadi Styles MD [facility] [place] [address] 05/29/2024 10:15 AM EDT TH Visit (TeleHealth) [facility] [place] [address] Natalee Sanchez APRN [facility] [place], [place] [id number] Scheduled Procedures Name Priority Associated Diagnoses Date/Ti me INJECTION, ANESTHETIC AGENT AND/OR STEROID, TRANSFORAMINAL EPIDURAL, LUMBAR OR SACRAL, SINGLE LEVEL (WRVU 1.9) Left lumbar radiculopathy 05/08/2024 10:30 AM EDT documented as of this encounter Procedures Procedure Name Priority Date/Time Associated Diagnosis Comments HC VENIPUNCTURE Routine 01/27/2021 10:44 AM EDT HEMOGRAM Routine 01/27/2021 3:35 AM EDT DIFFERENTIAL, AUTOMATED Routine 01/27/2021 3:35 AM EDT HC VENIPUNCTURE Routine 01/27/2021 3:35 AM EDT HC MAGNESIUM, SERUM Routine 01/27/2021 3 :35 AM EDT BASIC METABOLIC PANEL (NON-FASTING) Routine 01/27/2021 3:35 AM EDT SCAN, PERIPHERAL BLOOD Routine 01/26/2021 4:23 AM EDT HEMOGRAM Routine 01/26/2021 4:23 AM EDT DIFFERENTIAL, AUTOMATED Routine 01/26/2021 4:23 AM EDT HC VENIPUNCTURE Routine 01/26/2021 4:23 AM EDT HC MAGNESIUM, SERUM Routine 01/26/2021 4 :23 AM EDT BASIC METABOLIC PANEL (NON-FASTING) Routine 01/26/2021 4:23 AM EDT EKG 12-LEAD STAT 01/25/2021 8:28 AM EDT Chest pain, unspecified type HEMOGRAM Routine 01/25/2021 4:35 AM EDT DIFFERENTIAL, AUTOMATED Routine 01/25/2021 4:35 AM EDT HC VENIPUNCTURE Routine 01/25/2021 4:35 AM EDT HC MAGNESIUM, SERUM Routine 01/25/2021 4 :35 AM EDT BASIC METABOLIC PANEL (NON-FASTING) Routine 01/25/2021 4:35 AM EDT XR ABDOMEN FLAT AND UPRIGHT Routine 01/24/2021 6:55 PM EDT POCT GLUCOSE Routine 01/24/2021 11:29 AM EDT POCT GLUCOSE Routine 01/24/2021 6:31 AM EDT HEMOGRAM Routine 01/24/2021 4:59 AM EDT DIFFERENTIAL, AUTOMATED Routine 01/24/2021 4:59 AM EDT HC CBC,PLT & AUTO DIFF Routine 01/24/2021 4:59 AM EDT HC MAGNESIUM, SERUM Routine 01/24/2021 4 :59 AM EDT BASIC METABOLIC PANEL (NON-FASTING) Routine 01/24/2021 4:59 AM EDT POCT GLUCOSE Routine 01/24/2021 4:00 AM EDT POCT GLUCOSE Routine 01/23/2021 11:46 PM EDT POCT GLUCOSE Routine 01/23/2021 7:45 PM EDT POCT GLUCOSE Routine 01/23/2021 3:24 PM EDT POCT GLUCOSE Routine 01/23/2021 11:40 AM EDT POCT GLUCOSE Routine 01/23/2021 6:36 AM EDT XR ABDOMEN FLAT AND UPRIGHT STAT 01/23/2021 6:06 AM EDT POCT GLUCOSE Routine 01/23/2021 4:12 AM EDT HEMOGRAM Routine 01/23/2021 3:49 AM EDT DIFFERENTIAL, AUTOMATED Routine 01/23/2021 3:49 AM EDT HC VENIPUNCTURE Routine 01/23/2021 3:49 AM EDT HC MAGNESIUM, SERUM Routine 01/23/2021 3 :49 AM EDT BASIC METABOLIC PANEL (NON-FASTING) Routine 01/23/2021 3:49 AM EDT POCT GLUCOSE Routine 01/22/2021 10:59 PM EDT POCT GLUCOSE Routine 01/22/2021 8:03 PM EDT POCT GLUCOSE Routine 01/22/2021 3:58 PM EDT POCT GLUCOSE Routine 01/22/2021 11:34 AM EDT POCT GLUCOSE Routine 01/22/2021 6:32 AM EDT HEMOGRAM Routine 01/22/2021 3:22 AM EDT DIFFERENTIAL, AUTOMATED Routine 01/22/2021 3:22 AM EDT HC CBC,PLT & AUTO DIFF Routine 01/22/2021 3:22 AM EDT HC MAGNESIUM, SERUM Routine 01/22/2021 3 :22 AM EDT BASIC METABOLIC PANEL (NON-FASTING) Routine 01/22/2021 3:22 AM EDT POCT GLUCOSE Routine 01/22/2021 2:59 AM EDT POCT GLUCOSE Routine 01/21/2021 11:36 PM EDT POCT GLUCOSE Routine 01/21/2021 7:46 PM EDT POCT GLUCOSE Routine 01/21/2021 3:32 PM EDT POCT GLUCOSE Routine 01/21/2021 11:38 AM EDT HC VENIPUNCTURE Routine 01/21/2021 11:37 AM EDT POCT GLUCOSE Routine 01/21/2021 7:54 AM EDT SCAN, PERIPHERAL BLOOD Routine 01/21/2021 4:43 AM EDT HEMOGRAM Routine 01/21/2021 4:43 AM EDT DIFFERENTIAL, AUTOMATED Routine 01/21/2021 4:43 AM EDT HC VENIPUNCTURE Routine 01/21/2021 4:43 AM EDT HC MAGNESIUM, SERUM Routine 01/21/2021 4 :43 AM EDT BASIC METABOLIC PANEL (NON-FASTING) Routine 01/21/2021 4:43 AM EDT POCT GLUCOSE Routine 01/21/2021 3:19 AM EDT POCT GLUCOSE Routine 01/20/2021 11:19 PM EDT POCT GLUCOSE Routine 01/20/2021 7:35 PM EDT POCT GLUCOSE Routine 01/20/2021 4:05 PM EDT POCT GLUCOSE Routine 01/20/2021 11:30 AM EDT POCT GLUCOSE Routine 01/20/2021 6:52 AM EDT HEMOGRAM Routine 01/20/2021 4:19 AM EDT DIFFERENTIAL, AUTOMATED Routine 01/20/2021 4:19 AM EDT HC CBC,PLT & AUTO DIFF Routine 01/20/2021 4:19 AM EDT HC MAGNESIUM, SERUM Routine 01/20/2021 4 :19 AM EDT BASIC METABOLIC PANEL (NON-FASTING) Routine 01/20/2021 4:19 AM EDT POCT GLUCOSE Routine 01/20/2021 4:12 AM EDT POCT GLUCOSE Routine 01/19/2021 11:19 PM EDT POCT GLUCOSE Routine 01/19/2021 8:[address] ABDOMEN AND PELVIS W CONTRAST Routine 01/19/2021 4:50 PM EDT POCT GLUCOSE Routine 01/19/2021 4:18 PM EDT POCT GLUCOSE Routine 01/19/2021 11:11 AM EDT POCT GLUCOSE Routine 01/19/2021 6:40 AM EDT POCT GLUCOSE Routine 01/19/2021 4:12 AM EDT HEMOGRAM Routine 01/19/2021 3:06 AM EDT DIFFERENTIAL, AUTOMATED Routine 01/19/2021 3:06 AM EDT HC CBC,PLT & AUTO DIFF Routine 01/19/2021 3:06 AM EDT HC MAGNESIUM, SERUM Routine 01/19/2021 3 :06 AM EDT HC LIPASE Routine 01/19/2021 3:06 AM EDT HC HEMOGLOBIN A1C Routine 01/19/2021 3:0 6 AM EDT BASIC METABOLIC PANEL (NON-FASTING) Routine 01/19/2021 3:06 AM EDT POCT GLUCOSE Routine 01/19/2021 12:42 AM EDT POCT GLUCOSE Routine 01/18/2021 8:59 PM EDT POCT GLUCOSE Routine 01/18/2021 3:56 PM EDT POCT GLUCOSE Routine 01/18/2021 11:28 AM EDT POCT GLUCOSE Routine 01/18/2021 6:36 AM EDT HEMOGRAM Routine 01/18/2021 4:00 AM EDT DIFFERENTIAL, AUTOMATED Routine 01/18/2021 4:00 AM EDT HC CBC,PLT & AUTO DIFF Routine 01/18/2021 4:00 AM EDT HC MAGNESIUM, SERUM Routine 01/18/2021 4 :00 AM EDT HC LIPASE Routine 01/18/2021 4:00 AM EDT BASIC METABOLIC PANEL (NON-FASTING) Routine 01/18/2021 4:00 AM EDT POCT GLUCOSE Routine 01/18/2021 3:58 AM EDT POCT GLUCOSE Routine 01/17/2021 11:27 PM EDT RAPID COVID-19 PCR ([facility]) Routine 01/17/2021 10:22 PM EDT HEMOGRAM Routine 01/17/2021 8:51 PM EDT DIFFERENTIAL, AUTOMATED Routine 01/17/2021 8:51 PM EDT HC VENIPUNCTURE Routine 01/17/2021 8:51 PM EDT HC PHOSPHORUS, SERUM Routine 01/17/2021 8:51 PM EDT HC MAGNESIUM, SERUM Routine 01/17/2021 8 :51 PM EDT HC LIPASE Routine 01/17/2021 8:51 PM EDT HC CALCIUM, SERUM Routine 01/17/2021 8:5 1 PM EDT HEPATIC FUNCTION PANEL Routine 01/17/2021 8:51 PM EDT BASIC METABOLIC PANEL (NON-FASTING) Routine 01/17/2021 8:51 PM EDT POCT GLUCOSE Routine 01/17/2021 8:25 PM EDT XR ERCP Routine 01/17/2021 6:53 PM EDT ERCP Routine 01/17/2021 11:37 AM EDT Ercp, Diagnostic (41467) 01/17/2021 11:36 AM EDT Cystic duct calculus RUQ pain POCT GLUCOSE Routine 01/17/2021 10:07 AM EDT documented in this encounter Results * (ABNORMAL) BMP w/fasting Glucose (01/27/2021 10:44 AM EDT) Glucose Fasting 139(H) 65 - 99 mg/dL [facility] Comment: ?Fasting* Glucose Interpretive Criteria [...] of Diabetes Mellitus, Position Statement from the [place] [employer]. ??Diabetes Care, Volume 33, Supplement 1, Oct 2009 BUN 24(H) 8 - 18 mg/dL [facility] Creatinine 1.54(H) 0.70 - 1.20 mg/dL [facility] Sodium 131(L) 135 - 145 mmol/L [facility] Potassium 3.9 3.5 - 5.0 mmol/L [facility] Comment: Please note: ??Patients with WBC >100,000 may have falsely elevated Potassium levels. ??For accurate Potassium quantification in these patients send serum separator tube (gold top) for subsequent determinations. ??Contact the Clinical Chemistry Laboratory if there are any questions. Chloride 97(L) 98 - 107 mmol/L [facility] CO2 27 22 - 31 mmol/L [facility] Anion Gap 7 5 - 15 mmol/L [facility] Calcium 8.3(L) 8.5 - 10.5 mg/dL [facility] Estimated GFR 35(L) >=60 mL/min/1. 73 m?? [facility] Comment: This patient? s estimated [...] in addition to eGFR. Blood specimen (specimen) 01/27/2021 10:44 AM EDT 01/27/2021 11:16 AM EDT Narrative Resulting Agency Comment Spec In Lab Maxim Motley MD CHEMISTRY ORDERA BLES [facility] [place] [address] * (ABNORMAL) Differential, Automated (01/27/2021 3:35 AM EDT) Neutrophils % 92.8 % [facility] Neutr Abs (ANC) 17.30(H) 1.70 - 6.10 x10(3)/mc L [facility] Lymphocytes % 3.9 % [facility] Lymphocytes Abs 0.7(L) 0.9 - 3.2 x10(3)/mc L [facility] Monocytes % 1.9 % [facility] Monocyte Abs 0.4 0.3 - 0.9 x10(3)/mc L [facility] Eosinophils % 0.2 % [facility] Eosinophils Abs 0.0 0.0 - 0.4 x10(3)/mc L [facility] Basophils % 0.2 % [facility] Basophils Abs 0.0 0.0 - 0.1 x10(3)/mc L [facility] Immature Gran % 1.00 % [facility] Comment: Immature granulocytes(IG's)percentage and absolute count will include metamyelocytes, myelocytes, and promyelocytes. Blood smears from CBCs yielding IG's will be scanned manually for concordance. If this scan disagrees with the automated IG or if promyelocytes are noted, a manual differential will be performed. Anya Gran Abs 0.18(H) 0.00 - 0.04 x10(3)/mc L [facility] Blood specimen (specimen) 01/27/2021 3:35 AM EDT 01/27/2021 3:44 AM EDT Narrative Resulting Agency Comment Spec In Lab Freddie Montes MD HEMATOLOGY ORDERABLE S [facility] [place] [address] * (ABNORMAL) Hemogram (01/27/2021 3:35 AM EDT) WBC 18.6(H) 4.0 - 9.5 x10(3)/[facility] RBC 2.93(L) 4.00 - 5.21 x10(6)/[facility] Hemoglobin 9.3(L) 11.7 - 15.5 gm/dL [facility] Hematocrit 27.5(L) 35.7 - 45.8 % [facility] MCV 93.9 82.6 - 94.4 fL [facility] MCH 31.7 27.1 - 32.0 pg [facility] MCHC 33.8 31.7 - 35.0 gm/dL [facility] Platelets 108(L) 145 - 357 x10(3)/[facility] RDWSD 44.3 37.0 - 46.0 fL [facility] RDWCV 12.8 11.5 - 14.1 % [facility] MPV 11.3 7.6 - 12.9 fL [facility] nRBC % Auto 0.0 % [facility] nRBC Abs Auto 0.000 0.000 - 0.000 x10(3)/mcL [facility] Blood specimen (specimen) 01/27/2021 3:35 AM EDT 01/27/2021 3:44 AM EDT Narrative Resulting Agency Comment Spec In Lab Freddie Montes MD HEMATOLOGY ORDERABLE S Performing Organization Address [facility]/ZIP Co de Phone Number [facility] [place] [address] * Magnesium (01/27/2021 3:35 AM EDT) Magnesium 0.77 0.69 - 1.07 mmol/L [facility] Blood specimen (specimen) 01/27/2021 3:35 AM EDT 01/27/2021 3:44 AM EDT Narrative Resulting Agency Comment Spec In Lab Katt Dumont MD CHEMISTRY ORDERABLES Performing Organization Address [facility]/ZIP Co de Phone Number [facility] [place] [address] * (ABNORMAL) Basic Metabolic Panel (non-fasting) (01/27/2021 3:35 AM EDT) Glucose Lvl 112 65 - 199 mg/dL [facility] Comment:Diabetes: >=200 mg/d L plus symptoms BUN 25(H) 8 - 18 mg/dL [facility] Creatinine 1.63(H) 0.70 - 1.20 mg/dL [facility] Sodium 132(L) 135 - 145 mmol/L [facility] Potassium 3.2(L) 3.5 - 5.0 mmol/L [facility] Comment: Please note: ??Patients with WBC >100,000 may have falsely elevated Potassium levels. ??For accurate Potassium quantification in these patients send serum separator tube (gold top) for subsequent determinations. ??Contact the Clinical Chemistry Laboratory if there are any questions. Chloride 97(L) 98 - 107 mmol/L [facility] CO2 25 22 - 31 mmol/L [facility] Anion Gap 10 5 - 15 mmol/L [facility] Calcium 8.4(L) 8.5 - 10.5 mg/dL [facility] Estimated GFR 32(L) >=60 mL/min/1. 73 m?? [facility] Comment: This patient? s estimated glomerular filtration rate (eGFR) is between 32 mL/min/1.73 m2 (patients with less muscle mass) and 37 mL/min/1.73 m2 (patients with more muscle mass) [...] in addition to eGFR. Blood specimen (specimen) 01/27/2021 3:35 AM EDT 01/27/2021 3:44 AM EDT Narrative Resulting Agency Comment Spec In Lab Katt Dumont MD CHEMISTRY ORDERABLES Performing Organization Address City/[facility]/ZIP Co de Phone Number [facility] [place] [address] * Scan, Peripheral Blood (01/26/2021 4:23 AM EDT) Plat Estimate Decreased [facility] RBC Morphology Abnormal [facility] Pema Cells 1-5 /HPF [facility] Toxic Granulation Present [facility] Vacuolated Neut Present [facility] Blood specimen (specimen) 01/26/2021 4:23 AM EDT 01/26/2021 4:36 AM EDT Narrative Resulting Agency Comment Spec In Lab Freddie Montes MD HEMATOLOGY ORDERABLE S Performing Organization Address City/[facility]/ZIP Co de Phone Number [facility] [place] [address] * (ABNORMAL) Differential, Automated (01/26/2021 4:23 AM EDT) Neutrophils % 93.4 % [facility] Neutr Abs (ANC) 20.36(H) 1.70 - 6.10 x10(3)/ L [facility] Lymphocytes % 3.8 % [facility] Lymphocytes Abs 0.8(L) 0.9 - 3.2 x10(3)/[facility] Monocytes % 1.7 % [facility] Monocyte Abs 0.4 0.3 - 0.9 x10(3)/[facility] Eosinophils % 0.0 % [facility] Eosinophils Abs 0.0 0.0 - 0.4 x10(3)/[facility] Basophils % 0.0 % [facility] Basophils Abs 0.0 0.0 - 0.1 x10(3)/[facility] Immature Gran % 1.10 % [facility] Comment: Immature granulocytes(IG's)percentage and absolute count will include metamyelocytes, myelocytes, and promyelocytes. Blood smears from CBCs yielding IG's will be scanned manually for concordance. If this scan disagrees with the automated IG or if promyelocytes are noted, a manual differential will be performed. Anya Gran Abs 0.24(H) 0.00 - 0.04 x10(3)/[facility] Blood specimen (specimen) 01/26/2021 4:23 AM EDT 01/26/2021 4:36 AM EDT Narrative Resulting Agency Comment Spec In Lab Freddie Montes MD HEMATOLOGY ORDERABLE S [facility] [place] [address] * (ABNORMAL) Hemogram (01/26/2021 4:23 AM EDT) WBC 21.8(H) 4.0 - 9.5 x10(3)/[facility] RBC 3.26(L) 4.00 - 5.21 x10(6)/[facility] Hemoglobin 10.3(L) 11.7 - 15.5 gm/dL [facility] Hematocrit 30.6(L) 35.7 - 45.8 % [facility] MCV 93.9 82.6 - 94.4 [facility] MCH 31.6 27.1 - 32.0 pg [facility] MCHC 33.7 31.7 - 35.0 gm/dL [facility] Platelets 135(L) 145 - 357 x10(3)/[facility] RDWSD 43.4 37.0 - 46.0 [facility] RDWCV 12.5 11.5 - 14.1 % [facility] MPV 11.1 7.6 - 12.9 [facility] nRBC % Auto 0.0 % [facility] nRBC Abs Auto 0.000 0.000 - 0.000 x10(3)/[facility] Blood specimen (specimen) 01/26/2021 4:23 AM EDT 01/26/2021 4:36 AM EDT Narrative Resulting Agency Comment Spec In Lab Freddie Montes MD HEMATOLOGY ORDERABLE S [facility] [place] [address] * Magnesium (01/26/2021 4:23 AM EDT) Pathologist [facility] Magnesium 0.98 0.69 - 1.07 mmol/L [facility] Blood specimen (specimen) 01/26/2021 4:23 AM EDT 01/26/2021 4:36 AM EDT Narrative Resulting Agency Comment Spec In Lab Katt Dumont MD CHEMISTRY ORDERABLES [facility] [place] [address] * (ABNORMAL) Basic Metabolic Panel (non-fasting) (01/26/2021 4:23 AM EDT) Glucose Lvl 122 65 - 199 mg/dL [facility] Comment:Diabetes: >=200 mg/d L plus symptoms BUN 16 8 - 18 mg/dL [facility] Creatinine 1.05 0.70 - 1.20 mg/dL [facility] Sodium 135 135 - 145 mmol/L [facility] Potassium 3.1(L) 3.5 - 5.0 mmol/L [facility] Comment: Please note: ??Patients with WBC >100,000 may have falsely elevated Potassium levels. ??For accurate Potassium quantification in these patients send serum separator tube (gold top) for subsequent determinations. ??Contact the Clinical Chemistry Laboratory if there are any questions. Chloride 101 98 - 107 mmol/L [facility] CO2 23 22 - 31 mmol/L [facility] Anion Gap 11 5 - 15 mmol/L [facility] Calcium 8.8 8.5 - 10.5 mg/dL [facility] Estimated GFR 55(L) >=60 mL/min/1. 73 m?? [facility] Comment: This patient? s estimated glomerular filtration rate (eGFR) is between 55 mL/min/1.73 m2 (patients with less muscle mass) and 64 mL/min/1.73 m2 (patients with more muscle mass) [...] in addition to eGFR. Blood specimen (specimen) 01/26/2021 4:23 AM EDT 01/26/2021 4:36 AM EDT Narrative Resulting Agency Comment Spec In Lab Katt Dumont MD CHEMISTRY ORDERABLES Performing Organization Address [facility] Co de Phone Number [facility] [place] [address] * EKG 12 Lead (01/25/2021 8:28 AM EDT) Ventricular rate 111 BPM MUSE SYSTEM Atrial Rate 111 BPM MUSE SYSTEM P-R Interval 194 ms MUSE SYSTEM QRS Duration 86 ms MUSE SYSTEM Q-T Interval 332 ms MUSE SYSTEM QTC Calculated (Bezet) 451 ms MUSE SYSTEM Calculated P [place] 26 degrees MUSE SYSTEM Calculated R [place] 46 degrees MUSE SYSTEM Calculated T [place] 10 degrees MUSE SYSTEM INTERPRETATION Sinus tachycardia Inferior infarct (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) Anterolateral infarct (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) Abnormal ECG When compared with ECG of 10-APR-2020 09:37, Premature supraventricular complexes are no longer Present T wave inversion now evident in Inferior leads T wave inversion no longer evident in Anterolateral leads Confirmed by MD Albert, Immanuel ([id number]) on 01/27/2021 6:34:16 AM MUSE SYSTEM 01/25/2021 8:28 AM EDT 01/27/2021 6:34 AM EDT Travis Callahan MD ECG ORDERABLES Performing Organization Address [facility]/ZIP Co de Phone Number MUSE SYSTEM * (ABNORMAL) Differential, Automated (01/25/2021 4:35 AM EDT) Pathologist [facility] Neutrophils % 87.2 % [facility] Neutr Abs (ANC) 13.27(H) 1.70 - 6.10 x10(3)/mc L [facility] Lymphocytes % 6.2 % [facility] Lymphocytes Abs 0.9 0.9 - 3.2 x10(3)/mc L [facility] Monocytes % 5.5 % [facility] Monocyte Abs 0.8 0.3 - 0.9 x10(3)/[facility] Eosinophils % 0.1 % [facility] Eosinophils Abs 0.0 0.0 - 0.4 x10(3)/[facility] Basophils % 0.1 % [facility] Basophils Abs 0.0 0.0 - 0.1 x10(3)/[facility] Immature Gran % 0.90 % [facility] Comment: Immature granulocytes(IG's)percentage and absolute count will include metamyelocytes, myelocytes, and promyelocytes. Blood smears from CBCs yielding IG's will be scanned manually for concordance. If this scan disagrees with the automated IG or if promyelocytes are noted, a manual differential will be performed. Anya Gran Abs 0.14(H) 0.00 - 0.04 x10(3)/[facility] Blood specimen (specimen) 01/25/2021 4:35 AM EDT 01/25/2021 5:19 AM EDT Narrative Resulting Agency Comment Spec In Lab Freddie Montes MD HEMATOLOGY ORDERABLE S Performing Organization Address City/State/[facility] Co de Phone Number [facility] [place] [address] * (ABNORMAL) Hemogram (01/25/2021 4:35 AM EDT) WBC 15.2(H) 4.0 - 9.5 x10(3)/[facility] RBC 3.13(L) 4.00 - 5.21 x10(6)/[facility] Hemoglobin 9.9(L) 11.7 - 15.5 gm/dL [facility] Hematocrit 29.3(L) 35.7 - 45.8 % [facility] MCV 93.6 82.6 - 94.4 fL [facility] MCH 31.6 27.1 - 32.0 pg [facility] MCHC 33.8 31.7 - 35.0 gm/dL [facility] Platelets 135(L) 145 - 357 x10(3)/[facility] RDWSD 43.1 37.0 - 46.0 fL [facility] RDWCV 12.5 11.5 - 14.1 % [facility] MPV 10.9 7.6 - 12.9 fL [facility] nRBC % Auto 0.0 % [facility] nRBC Abs Auto 0.000 0.000 - 0.000 x10(3)/[facility] Blood specimen (specimen) 01/25/2021 4:35 AM EDT 01/25/2021 5:19 AM EDT Narrative Resulting Agency Comment Spec In Lab Freddie Montes MD HEMATOLOGY ORDERABLE S Performing Organization Address [facility]/ZIP Co de Phone Number [facility] [place] [address] * (ABNORMAL) Magnesium (01/25/2021 4:35 AM EDT) Pathologist [facility] Magnesium 0.66(L) 0.69 - 1.07 mmol/L [facility] Blood specimen (specimen) 01/25/2021 4:35 AM EDT 01/25/2021 5:19 AM EDT Narrative Resulting Agency Comment Spec In Lab Katt Dumont MD CHEMISTRY ORDERABLES Performing Organization Address [facility]/ZIP Co de Phone Number [facility] [place] [address] * (ABNORMAL) Basic Metabolic Panel (non-fasting) (01/25/2021 4:35 AM EDT) Pathologist [facility] Glucose Lvl 159 65 - 199 mg/dL [facility] Comment:Diabetes: >=200 mg/d L plus symptoms BUN 19(H) 8 - 18 mg/dL [facility] Creatinine 1.25(H) 0.70 - 1.20 mg/dL [facility] Sodium 132(L) 135 - 145 mmol/L [facility] Potassium 3.4(L) 3.5 - 5.0 mmol/L [facility] Comment: Please note: ??Patients with WBC >100,000 may have falsely elevated Potassium levels. ??For accurate Potassium quantification in these patients send serum separator tube (gold top) for subsequent determinations. ??Contact the Clinical Chemistry Laboratory if there are any questions. Chloride 96(L) 98 - 107 mmol/L [facility] CO2 25 22 - 31 mmol/L [facility] Anion Gap 11 5 - 15 mmol/L [facility] Calcium 8.6 8.5 - 10.5 mg/dL [facility] Estimated GFR 44(L) >=60 mL/min/1. 73 m?? [facility] Comment: This patient? s estimated [...] in addition to eGFR. Blood specimen (specimen) 01/25/2021 4:35 AM EDT 01/25/2021 5:19 AM EDT Narrative Resulting Agency Comment Spec In Lab Katt Dumont MD CHEMISTRY ORDERABLES [facility] [place] [address] * XR Abdomen Flat & Upright (01/24/2021 6:55 PM EDT) Anatomical Region Laterality Modality Abdomen N/A Digital Radiogra phy Impressions 01/24/2021 7:10 PM EDT Mild paucity of proximal to mid small bowel gas, otherwise, nonobstructive bowel gas pattern. Thank you for letting us participate in the care of this patient. ??If you are a health care provider and have any questions regarding this report, please contact the number below. ??For patients who have questions please contact the health career education teacher that requested your imaging first. ? Electronically signed by: Johnna Jacques MD, [facility] ([phone]), at 01/24/2021 7:10 PM Narrative 01/24/2021 7:10 PM EDT EXAMINATION: XR ABDOMEN FLAT AND UPRIGHT CLINICAL HISTORY: No BM in past 5 days. Here with pancreatitis. Concern for obstruction TECHNIQUE: AP abdomen COMPARISON: Abdomen radiographs from January 23, 2021 FINDINGS: There is air within a few loops of predominantly distal small bowel with generalized paucity of small bowel gas. Air-filled ascending and transverse colon with a balanced air-fluid level at the right abdomen is noted. Small amount of air within the predominantly decompressed descending and sigmoid colon. No free air. Lung bases are clear. No interval osseous changes. Procedure Note Johnna Jacques MD - 01/24/2021 EXAMINATION: XR ABDOMEN FLAT AND UPRIGHT CLINICAL HISTORY: No BM in past 5 days. Here with pancreatitis. Concernfor obstruction TECHNIQUE: AP abdomen COMPARISON: Abdomen radiographs from January 23, 2021 FINDINGS: There is air within a few loops of predominantly distal small bowel with generalized paucity of small bowel gas. Air-filled ascending andtransverse colon with a balanced air-fluid level at the right abdomen is noted.Small amount of air within the predominantly decompressed descending andsigmoid colon. No free air. Lung bases are clear. No interval osseous changes. IMPRESSION Mild paucity of proximal to mid small bowel gas, otherwise, nonobstructivebowel gas pattern. Thank you for letting us participate in the care of this patient. If youare a health care provider and have any questions regarding this report,please contact the number below. For patients who have questions please contactthe health career education teacher that requested your imaging first. Electronically signed by: Johnna Jacques MD, [facility]([phone]), at 01/24/2021 7:10 PM Travis Callahan MD IMG DX ORDERABLES * POCT Glucose (01/24/2021 11:29 AM EDT) POC Glucose 177 65 - 199 mg/dL [facility] Comment: Supplemental ranges: <140 mg/dL before meals <180 mg/dL all other times of the day Blood specimen (specimen) 01/24/2021 11:29 AM EDT 01/24/2021 11:29 AM EDT Travis Callahan MD POINT OF CARE TEST O MAUREEN Performing Organization Address [facility] Co de Phone Number [facility] [place] [address] * POCT Glucose (01/24/2021 6:31 AM EDT) POC Glucose 182 65 - 199 mg/dL [facility] Comment: Supplemental ranges: <140 mg/dL before meals <180 mg/dL all other times of the day Blood specimen (specimen) 01/24/2021 6:31 AM EDT 01/24/2021 6:31 AM EDT Travis Callahan MD POINT OF CARE TEST O MAUREEN Performing Organization Address [facility] Co de Phone Number [facility] [place] [address] * (ABNORMAL) Differential, Automated (01/24/2021 4:59 AM EDT) Neutrophils % 80.3 % [facility] Neutr Abs (ANC) 11.07(H) 1.70 - 6.10 x10(3)/[facility] Lymphocytes % 8.6 % [facility] Lymphocytes Abs 1.2 0.9 - 3.2 x10(3)/[facility] Monocytes % 9.4 % [facility] Monocyte Abs 1.3(H) 0.3 - 0.9 x10(3)/[facility] Eosinophils % 0.2 % [facility] Eosinophils Abs 0.0 0.0 - 0.4 x10(3)/[facility] Basophils % 0.1 % [facility] Basophils Abs 0.0 0.0 - 0.1 x10(3)/[facility] Immature Gran % 1.40 % [facility] Comment: Immature granulocytes(IG's)percentage and absolute count will include metamyelocytes, myelocytes, and promyelocytes. Blood smears from CBCs yielding IG's will be scanned manually for concordance. If this scan disagrees with the automated IG or if promyelocytes are noted, a manual differential will be performed. Anya Gran Abs 0.19(H) 0.00 - 0.04 x10(3)/[facility] Blood specimen (specimen) 01/24/2021 4:59 AM EDT 01/24/2021 5:28 AM EDT Narrative Resulting Agency Comment Spec In Lab Freddie Montes MD HEMATOLOGY ORDERABLE S [facility] [place] [address] * (ABNORMAL) Hemogram (01/24/2021 4:59 AM EDT) WBC 13.8(H) 4.0 - 9.5 x10(3)/[facility] RBC 3.31(L) 4.00 - 5.21 x10(6)/[facility] Hemoglobin 10.4(L) 11.7 - 15.5 gm/dL [facility] Hematocrit 30.8(L) 35.7 - 45.8 % [facility] MCV 93.1 82.6 - 94.4 [facility] MCH 31.4 27.1 - 32.0 pg [facility] MCHC 33.8 31.7 - 35.0 gm/dL [facility] Platelets 145 145 - 357 x10(3)/[facility] RDWSD 41.0 37.0 - 46.0 [facility] RDWCV 12.1 11.5 - 14.1 % [facility] MPV 10.6 7.6 - 12.9 [facility] nRBC % Auto 0.0 % [facility] nRBC Abs Auto 0.000 0.000 - 0.000 x10(3)/[facility] Blood specimen (specimen) 01/24/2021 4:59 AM EDT 01/24/2021 5:28 AM EDT Narrative Resulting Agency Comment Spec In Lab Freddie Montes MD HEMATOLOGY ORDERABLE S Performing Organization Address City/[facility]/ZIP Co de Phone Number [facility] [place] [address] * Magnesium (01/24/2021 4:59 AM EDT) Magnesium 0.95 0.69 - 1.07 mmol/L [facility] Blood specimen (specimen) 01/24/2021 4:59 AM EDT 01/24/2021 5:28 AM EDT Narrative Resulting Agency Comment Spec In Lab Katt Dumont MD CHEMISTRY ORDERABLES Performing Organization Address City/[facility]/ZIP Co de Phone Number [facility] [place] [address] * (ABNORMAL) Basic Metabolic Panel (non-fasting) (01/24/2021 4:59 AM EDT) Glucose Lvl 129 65 - 199 mg/dL [facility] Comment:Diabetes: >=200 mg/d L plus symptoms BUN 23(H) 8 - 18 mg/dL [facility] Creatinine 1.32(H) 0.70 - 1.20 mg/dL [facility] Sodium 133(L) 135 - 145 mmol/L [facility] Potassium 4.1 3.5 - 5.0 mmol/L [facility] Comment: Please note: ??Patients with WBC >100,000 may have falsely elevated Potassium levels. ??For accurate Potassium quantification in these patients send serum separator tube (gold top) for subsequent determinations. ??Contact the Clinical Chemistry Laboratory if there are any questions. Chloride 95(L) 98 - 107 mmol/L [facility] CO2 28 22 - 31 mmol/L [facility] Anion Gap 10 5 - 15 mmol/L [facility] Calcium 9.0 8.5 - 10.5 mg/dL [facility] Estimated GFR 42(L) >=60 mL/min/1. 73 m?? [facility] Comment: This patient? s estimated glomerular filtration rate (eGFR) is between 42 mL/min/1.73 m2 (patients with less muscle mass) and 48 mL/min/1.73 m2 (patients with more muscle mass) [...] in addition to eGFR. Blood specimen (specimen) 01/24/2021 4:59 AM EDT 01/24/2021 5:28 AM EDT Narrative Resulting Agency Comment Spec In Lab Katt Dumont MD CHEMISTRY ORDERABLES [facility] [place] [address] * POCT Glucose (01/24/2021 4:00 AM EDT) POC Glucose 136 65 - 199 mg/dL [facility] Comment: Supplemental ranges: <140 mg/dL before meals <180 mg/dL all other times of the day Blood specimen (specimen) 01/24/2021 4:00 AM EDT 01/24/2021 4:00 AM EDT Travis Callahan MD POINT OF CARE TEST O RDERABLES Performing Organization Address [facility] Co de Phone Number [facility] [place] [address] * POCT Glucose (01/23/2021 11:46 PM EDT) POC Glucose 158 65 - 199 mg/dL [facility] Comment: Supplemental ranges: <140 mg/dL before meals <180 mg/dL all other times of the day Blood specimen (specimen) 01/23/2021 11:46 PM EDT 01/23/2021 11:46 PM EDT Travis Callahan MD POINT OF CARE TEST O RDERABLES Performing Organization Address [facility] Co de Phone Number [facility] [place] [address] * POCT Glucose (01/23/2021 7:45 PM EDT) POC Glucose 111 65 - 199 mg/dL [facility] Comment: Supplemental ranges: <140 mg/dL before meals <180 mg/dL all other times of the day Blood specimen (specimen) 01/23/2021 7:45 PM EDT 01/23/2021 7:45 PM EDT Travis Callahan MD POINT OF CARE TEST O RDERABLES [facility] [place] [address] * POCT Glucose (01/23/2021 3:24 PM EDT) POC Glucose 122 65 - 199 mg/dL [facility] Comment: Supplemental ranges: <140 mg/dL before meals <180 mg/dL all other times of the day Blood specimen (specimen) 01/23/2021 3:24 PM EDT 01/23/2021 3:24 PM EDT Travis Callahan MD POINT OF CARE TEST O RDERABLES Performing Organization Address [facility] Co de Phone Number [facility] [place] [address] * POCT Glucose (01/23/2021 11:40 AM EDT) POC Glucose 151 65 - 199 mg/dL [facility] Comment: Supplemental ranges: <140 mg/dL before meals <180 mg/dL all other times of the day Blood specimen (specimen) 01/23/2021 11:40 AM EDT 01/23/2021 11:40 AM EDT Travis Callahan MD POINT OF CARE TEST O RDERABLES Performing Organization Address [facility] Co de Phone Number [facility] [place] [address] * POCT Glucose (01/23/2021 6:36 AM EDT) POC Glucose 147 65 - 199 mg/dL [facility] Comment: Supplemental ranges: <140 mg/dL before meals <180 mg/dL all other times of the day Blood specimen (specimen) 01/23/2021 6:36 AM EDT 01/23/2021 6:36 AM EDT Travis Callahan MD POINT OF CARE TEST O RDERABLES [facility] [place] [address] * XR Abdomen Flat & Upright (01/23/2021 6:06 AM EDT) Anatomical Region Laterality Modality Abdomen N/A Digital Radiogra phy Impressions 01/23/2021 6:23 AM EDT * ??Nonobstructive bowel gas pattern. * ??Cholecystectomy clips. A small stone in the cystic duct remnant. Thank you for letting us participate in the care of this patient. ??If you are a health care provider and have any questions regarding this report, please contact the number below. ??For patients who have questions please contact the health career education teacher that requested your imaging first. ? Narrative 01/23/2021 6:23 AM EDT EXAMINATION: XR ABDOMEN FLAT AND UPRIGHT CLINICAL HISTORY: 10/10 abdominal pain, c/f obstruction obstruction vs. free air? TECHNIQUE: Supine and upright frontal radiographs of the abdomen. Number of images: 5 COMPARISON: CT abdomen pelvis with contrast 01/19/2011 FINDINGS: Nonobstructive bowel gas pattern. No pneumoperitoneum. Degenerative changes in the spine. Cholecystectomy clips. A small stone in the cystic duct remnant. Procedure Note Javier Moy MD - 01/23/2021 EXAMINATION: XR ABDOMEN FLAT AND UPRIGHT CLINICAL HISTORY: 10/10 abdominal pain, c/f obstruction obstruction vs. free air? TECHNIQUE: Supine and upright frontal radiographs of the abdomen. Number of images: 5 COMPARISON: CT abdomen pelvis with contrast 01/19/2011 FINDINGS: Nonobstructive bowel gas pattern. No pneumoperitoneum. Degenerativechanges in the spine. Cholecystectomy clips. A small stone in the cystic ductremnant. IMPRESSION * Nonobstructive bowel gas pattern. * Cholecystectomy clips. A small stone in the cystic duct remnant. Thank you for letting us participate in the care of this patient. If youare a health care provider and have any questions regarding this report,please contact the number below. For patients who have questions please contactthe health career education teacher that requested your imaging first. Travis Callahan MD IMG DX ORDERABLES * POCT Glucose (01/23/2021 4:12 AM EDT) [facility] POC Glucose 131 65 - 199 mg/dL [facility] Comment: Supplemental ranges: <140 mg/dL before meals <180 mg/dL all other times of the day Blood specimen (specimen) 01/23/2021 4:12 AM EDT 01/23/2021 4:12 AM EDT Travis Callahan MD POINT OF CARE TEST O RDERABLES Performing Organization Address City/State/[facility] Co de Phone Number [facility] [place] [address] * (ABNORMAL) Differential, Automated (01/23/2021 3:49 AM EDT) Pathologist [facility] Neutrophils % 81.3 % [facility] Neutr Abs (ANC) 11.34(H) 1.70 - 6.10 x10(3)/mc L [facility] Lymphocytes % 7.0 % [facility] Lymphocytes Abs 1.0 0.9 - 3.2 x10(3)/mc L [facility] Monocytes % 9.8 % [facility] Monocyte Abs 1.4(H) 0.3 - 0.9 x10(3)/mc L [facility] Eosinophils % 0.3 % [facility] Eosinophils Abs 0.0 0.0 - 0.4 x10(3)/[facility] Basophils % 0.4 % [facility] Basophils Abs 0.0 0.0 - 0.1 x10(3)/[facility] Immature Gran % 1.20 % [facility] Comment: Immature granulocytes(IG's)percentage and absolute count will include metamyelocytes, myelocytes, and promyelocytes. Blood smears from CBCs yielding IG's will be scanned manually for concordance. If this scan disagrees with the automated IG or if promyelocytes are noted, a manual differential will be performed. Anya Gran Abs 0.17(H) 0.00 - 0.04 x10(3)/[facility] Blood specimen (specimen) 01/23/2021 3:49 AM EDT 01/23/2021 3:59 AM EDT Narrative Resulting Agency Comment Spec In Lab Freddie Montes MD HEMATOLOGY ORDERABLE S [facility] [place] [address] * (ABNORMAL) Hemogram (01/23/2021 3:49 AM EDT) WBC 13.9(H) 4.0 - 9.5 x10(3)/[facility] RBC 3.32(L) 4.00 - 5.21 x10(6)/[facility] Hemoglobin 10.5(L) 11.7 - 15.5 gm/dL [facility] Hematocrit 31.6(L) 35.7 - 45.8 % [facility] MCV 95.2(H) 82.6 - 94.4 fL [facility] MCH 31.6 27.1 - 32.0 pg [facility] MCHC 33.2 31.7 - 35.0 gm/dL [facility] Platelets 125(L) 145 - 357 x10(3)/[facility] RDWSD 41.0 37.0 - 46.0 [facility] RDWCV 11.9 11.5 - 14.1 % [facility] MPV 11.0 7.6 - 12.9 [facility] nRBC % Auto 0.0 % [facility] nRBC Abs Auto 0.000 0.000 - 0.000 x10(3)/[facility] Blood specimen (specimen) 01/23/2021 3:49 AM EDT 01/23/2021 3:59 AM EDT Narrative Resulting Agency Comment Spec In Lab Freddie Montes MD HEMATOLOGY ORDERABLE S Performing Organization Address [facility]/ZIP Co de Phone Number [facility] [place] [address] * Magnesium (01/23/2021 3:49 AM EDT) Pathologist [facility] Magnesium 0.84 0.69 - 1.07 mmol/L [facility] Blood specimen (specimen) 01/23/2021 3:49 AM EDT 01/23/2021 3:59 AM EDT Narrative Resulting Agency Comment Spec In Lab Katt Dumont MD CHEMISTRY ORDERABLES Performing Organization Address [facility]/ZIP Co de Phone Number [facility] [place] [address] * (ABNORMAL) Basic Metabolic Panel (non-fasting) (01/23/2021 3:49 AM EDT) Glucose Lvl 135 65 - 199 mg/dL [facility] Comment:Diabetes: >=200 mg/d L plus symptoms BUN 31(H) 8 - 18 mg/dL [facility] Creatinine 1.53(H) 0.70 - 1.20 mg/dL [facility] Sodium 130(L) 135 - 145 mmol/L [facility] Potassium 4.2 3.5 - 5.0 mmol/L [facility] Comment: Please note: ??Patients with WBC >100,000 may have falsely elevated Potassium levels. ??For accurate Potassium quantification in these patients send serum separator tube (gold top) for subsequent determinations. ??Contact the Clinical Chemistry Laboratory if there are any questions. Chloride 96(L) 98 - 107 mmol/L [facility] CO2 24 22 - 31 mmol/L [facility] Anion Gap 10 5 - 15 mmol/L [facility] Calcium 8.9 8.5 - 10.5 mg/dL [facility] Estimated GFR 35(L) >=60 mL/min/1. 73 m?? [facility] Comment: This patient? s estimated [...] in addition to eGFR. Blood specimen (specimen) 01/23/2021 3:49 AM EDT 01/23/2021 3:59 AM EDT Narrative Resulting Agency Comment Spec In Lab Katt Dumont MD CHEMISTRY ORDERABLES [facility] [place] [address] * POCT Glucose (01/22/2021 10:59 PM EDT) POC Glucose 145 65 - 199 mg/dL [facility] Comment: Supplemental ranges: <140 mg/dL before meals <180 mg/dL all other times of the day Blood specimen (specimen) 01/22/2021 10:59 PM EDT 01/22/2021 10:59 PM EDT Travis Callahan MD POINT OF CARE TEST O MAUREEN Performing Organization Address [facility]/ZIP Co de Phone Number [facility] [place] [address] * POCT Glucose (01/22/2021 8:03 PM EDT) POC Glucose 174 65 - 199 mg/dL [facility] Comment: Supplemental ranges: <140 mg/dL before meals <180 mg/dL all other times of the day Blood specimen (specimen) 01/22/2021 8:03 PM EDT 01/22/2021 8:03 PM EDT Travis Callahan MD POINT OF CARE TEST O MEIERAMARIE Performing Organization Address [facility] Co de Phone Number [facility] [place] [address] * POCT Glucose (01/22/2021 3:58 PM EDT) POC Glucose 146 65 - 199 mg/dL [facility] Comment: Supplemental ranges: <140 mg/dL before meals <180 mg/dL all other times of the day Blood specimen (specimen) 01/22/2021 3:58 PM EDT 01/22/2021 3:58 PM EDT Travis Callahan MD POINT OF CARE TEST O MEIERAMARIE Performing Organization Address [facility]/ZIP Co de Phone Number [facility] [place] [address] * POCT Glucose (01/22/2021 11:34 AM EDT) POC Glucose 114 65 - 199 mg/dL [facility] Comment: Supplemental ranges: <140 mg/dL before meals <180 mg/dL all other times of the day Blood specimen (specimen) 01/22/2021 11:34 AM EDT 01/22/2021 11:34 AM EDT Travis Callahan MD POINT OF CARE TEST O RDWILLIAM Performing Organization Address City/[facility]/ZIP Co de Phone Number [facility] [place] [address] * POCT Glucose (01/22/2021 6:32 AM EDT) Pathologist [facility] POC Glucose 97 65 - 199 mg/dL [facility] Comment: Supplemental ranges: <140 mg/dL before meals <180 mg/dL all other times of the day Blood specimen (specimen) 01/22/2021 6:32 AM EDT 01/22/2021 6:32 AM EDT Travis Callahan MD POINT OF CARE TEST O MAUREEN Performing Organization Address [facility] Co de Phone Number [facility] [place] [address] * (ABNORMAL) Differential, Automated (01/22/2021 3:22 AM EDT) Pathologist [facility] Neutrophils % 82.5 % [facility] Neutr Abs (ANC) 10.79(H) 1.70 - 6.10 x10(3)/ L [facility] Lymphocytes % 9.3 % [facility] Lymphocytes Abs 1.2 0.9 - 3.2 x10(3)/ L [facility] Monocytes % 6.8 % [facility] Monocyte Abs 0.9 0.3 - 0.9 x10(3)/mc L [facility] Eosinophils % 0.6 % [facility] Eosinophils Abs 0.1 0.0 - 0.4 x10(3)/[facility] Basophils % 0.2 % [facility] Basophils Abs 0.0 0.0 - 0.1 x10(3)/ L [facility] Immature Gran % 0.60 % [facility] Comment: Immature granulocytes(IG's)percentage and absolute count will include metamyelocytes, myelocytes, and promyelocytes. Blood smears from CBCs yielding IG's will be scanned manually for concordance. If this scan disagrees with the automated IG or if promyelocytes are noted, a manual differential will be performed. Anya Gran Abs 0.08(H) 0.00 - 0.04 x10(3)/mc L [facility] Blood specimen (specimen) 01/22/2021 3:22 AM EDT 01/22/2021 4:03 AM EDT Narrative Resulting Agency Comment Spec In Lab Freddie Montes MD HEMATOLOGY ORDERABLE S [facility] [place] [address] * (ABNORMAL) Hemogram (01/22/2021 3:22 AM EDT) WBC 13.1(H) 4.0 - 9.5 x10(3)/[facility] RBC 2.99(L) 4.00 - 5.21 x10(6)/[facility] Hemoglobin 9.6(L) 11.7 - 15.5 gm/dL [facility] Hematocrit 29.7(L) 35.7 - 45.8 % [facility] MCV 99.3(H) 82.6 - 94.4 fL [facility] MCH 32.1(H) 27.1 - 32.0 pg [facility] MCHC 32.3 31.7 - 35.0 gm/dL [facility] Platelets 114(L) 145 - 357 x10(3)/[facility] RDWSD 44.5 37.0 - 46.0 [facility] RDWCV 12.0 11.5 - 14.1 % [facility] MPV 11.5 7.6 - 12.9 [facility] nRBC % Auto 0.0 % [facility] nRBC Abs Auto 0.000 0.000 - 0.000 x10(3)/mcL [facility] Blood specimen (specimen) 01/22/2021 3:22 AM EDT 01/22/2021 4:03 AM EDT Narrative Resulting Agency Comment Spec In Lab Freddie Montes MD HEMATOLOGY ORDERABLE S Performing Organization Address [facility]/ZIP Co de Phone Number [facility] [place] [address] * Magnesium (01/22/2021 3:22 AM EDT) Pathologist [facility] Magnesium 0.94 0.69 - 1.07 mmol/L [facility] Blood specimen (specimen) 01/22/2021 3:22 AM EDT 01/22/2021 4:03 AM EDT Narrative Resulting Agency Comment Spec In Lab Katt Dumont MD CHEMISTRY ORDERABLES Performing Organization Address [facility] Co de Phone Number [facility] [place] [address] * (ABNORMAL) Basic Metabolic Panel (non-fasting) (01/22/2021 3:22 AM EDT) Glucose Lvl 118 65 - 199 mg/dL [facility] Comment:Diabetes: >=200 mg/d L plus symptoms BUN 36(H) 8 - 18 mg/dL [facility] Creatinine 2.11(H) 0.70 - 1.20 mg/dL [facility] Sodium 130(L) 135 - 145 mmol/L [facility] Potassium 4.2 3.5 - 5.0 mmol/L [facility] Comment: Please note: ??Patients with WBC >100,000 may have falsely elevated Potassium levels. ??For accurate Potassium quantification in these patients send serum separator tube (gold top) for subsequent determinations. ??Contact the Clinical Chemistry Laboratory if there are any questions. Chloride 96(L) 98 - 107 mmol/L [facility] CO2 27 22 - 31 mmol/L [facility] Anion Gap 7 5 - 15 mmol/L [facility] Calcium 8.6 8.5 - 10.5 mg/dL [facility] Estimated GFR 24(L) >=60 mL/min/1. 73 m?? [facility] Comment: This patient? s estimated glomerular filtration rate (eGFR) is between 24 mL/min/1.73 m2 (patients with less muscle mass) and 27 mL/min/1.73 m2 (patients with more muscle mass) [...] in addition to eGFR. Blood specimen (specimen) 01/22/2021 3:22 AM EDT 01/22/2021 4:03 AM EDT Narrative Resulting Agency Comment Spec In Lab Katt Dumont MD CHEMISTRY ORDERABLES Performing Organization Address [facility]/ZIP Co de Phone Number [facility] [place] [address] * POCT Glucose (01/22/2021 2:59 AM EDT) POC Glucose 120 65 - 199 mg/dL [facility] Comment: Supplemental ranges: <140 mg/dL before meals <180 mg/dL all other times of the day Blood specimen (specimen) 01/22/2021 2:59 AM EDT 01/22/2021 2:59 AM EDT Travis Callahan MD POINT OF CARE TEST O RDERABLES Performing Organization Address City/[facility]/ZIP Co de Phone Number [facility] [place] [address] * POCT Glucose (01/21/2021 11:36 PM EDT) POC Glucose 120 65 - 199 mg/dL [facility] Comment: Supplemental ranges: <140 mg/dL before meals <180 mg/dL all other times of the day Blood specimen (specimen) 01/21/2021 11:36 PM EDT 01/21/2021 11:36 PM EDT Travis Callahan MD POINT OF CARE TEST O RDWILLIAM [facility] [place] [address] * POCT Glucose (01/21/2021 7:46 PM EDT) POC Glucose 133 65 - 199 mg/dL [facility] Comment: Supplemental ranges: <140 mg/dL before meals <180 mg/dL all other times of the day Blood specimen (specimen) 01/21/2021 7:46 PM EDT 01/21/2021 7:46 PM EDT Travis Callahan MD POINT OF CARE TEST O MAUREEN Performing Organization Address [facility] Co de Phone Number [facility] [place] [address] * POCT Glucose (01/21/2021 3:32 PM EDT) POC Glucose 140 65 - 199 mg/dL [facility] Comment: Supplemental ranges: <140 mg/dL before meals <180 mg/dL all other times of the day Blood specimen (specimen) 01/21/2021 3:32 PM EDT 01/21/2021 3:32 PM EDT Travis Callahan MD POINT OF CARE TEST O MAUREEN Performing Organization Address City/[facility]/ZIP Co de Phone Number [facility] [place] [address] * POCT Glucose (01/21/2021 11:38 AM EDT) POC Glucose 92 65 - 199 mg/dL [facility] Comment: Supplemental ranges: <140 mg/dL before meals <180 mg/dL all other times of the day Blood specimen (specimen) 01/21/2021 11:38 AM EDT 01/21/2021 11:38 AM EDT Travis Callahan MD POINT OF CARE TEST O RDERABLES [facility] [place] [address] * (ABNORMAL) BMP w/fasting Glucose (01/21/2021 11:37 AM EDT) Glucose Fasting 109(H) 65 - 99 mg/dL [facility] Comment: ?Fasting* Glucose Interpretive Criteria [...] of Diabetes Mellitus, Position Statement from the [place] [employer]. ??Diabetes Care, Volume 33, Supplement 1, Oct 2009 BUN 30(H) 8 - 18 mg/dL [facility] Creatinine 1.95(H) 0.70 - 1.20 mg/dL [facility] Sodium 133(L) 135 - 145 mmol/L [facility] Potassium 3.6 3.5 - 5.0 mmol/L [facility] Comment: Please note: ??Patients with WBC >100,000 may have falsely elevated Potassium levels. ??For accurate Potassium quantification in these patients send serum separator tube (gold top) for subsequent determinations. ??Contact the Clinical Chemistry Laboratory if there are any questions. Chloride 95(L) 98 - 107 mmol/L [facility] CO2 27 22 - 31 mmol/L [facility] Anion Gap 11 5 - 15 mmol/L [facility] Calcium 9.2 8.5 - 10.5 mg/dL [facility] Estimated GFR 26(L) >=60 mL/min/1. 73 m?? [facility] Comment: This patient? s estimated glomerular filtration rate (eGFR) is between 26 mL/min/1.73 m2 (patients with less muscle mass) and 30 mL/min/1.73 m2 (patients with more muscle mass) [...] in addition to eGFR. Blood specimen (specimen) 01/21/2021 11:37 AM EDT 01/21/2021 12:24 PM EDT Narrative Resulting Agency Comment Spec In Lab Travis Callahan MD CHEMISTRY ORDERABLES Performing Organization Address [facility]/ZIP Co de Phone Number [facility] [place] [address] * POCT Glucose (01/21/2021 7:54 AM EDT) POC Glucose 105 65 - 199 mg/dL [facility] Comment: Supplemental ranges: <140 mg/dL before meals <180 mg/dL all other times of the day Blood specimen (specimen) 01/21/2021 7:54 AM EDT 01/21/2021 7:54 AM EDT Travis Callahan MD POINT OF CARE TEST O RDERABLES Performing Organization Address City/[facility]/ZIP Co de Phone Number [facility] [place] [address] * Scan, Peripheral Blood (01/21/2021 4:43 AM EDT) Plat Estimate Decreased [facility] RBC Morphology Normal [facility] Blood specimen (specimen) 01/21/2021 4:43 AM EDT 01/21/2021 4:50 AM EDT Narrative Resulting Agency Comment Spec In Lab Freddie Montes MD HEMATOLOGY ORDERABLE S [facility] [place] [address] * (ABNORMAL) Differential, Automated (01/21/2021 4:43 AM EDT) Neutrophils % 86.5 % [facility] Neutr Abs (ANC) 14.20(H) 1.70 - 6.10 x10(3)/ L [facility] Lymphocytes % 6.0 % [facility] Lymphocytes Abs 1.0 0.9 - 3.2 x10(3)/[facility] Monocytes % 6.5 % [facility] Monocyte Abs 1.1(H) 0.3 - 0.9 x10(3)/ L [facility] Eosinophils % 0.1 % [facility] Eosinophils Abs 0.0 0.0 - 0.4 x10(3)/ L [facility] Basophils % 0.4 % [facility] Basophils Abs 0.1 0.0 - 0.1 x10(3)/ L [facility] Immature Gran % 0.50 % [facility] Comment: Immature granulocytes(IG's)percentage and absolute count will include metamyelocytes, myelocytes, and promyelocytes. Blood smears from CBCs yielding IG's will be scanned manually for concordance. If this scan disagrees with the automated IG or if promyelocytes are noted, a manual differential will be performed. Anya Gran Abs 0.08(H) 0.00 - 0.04 x10(3)/ L [facility] Blood specimen (specimen) 01/21/2021 4:43 AM EDT 01/21/2021 4:50 AM EDT Narrative Resulting Agency Comment Spec In Lab Freddie Montes MD HEMATOLOGY ORDERABLE S [facility] [place] [address] * (ABNORMAL) Hemogram (01/21/2021 4:43 AM EDT) WBC 16.4(H) 4.0 - 9.5 x10(3)/[facility] RBC 3.19(L) 4.00 - 5.21 x10(6)/[facility] Hemoglobin 10.5(L) 11.7 - 15.5 gm/dL [facility] Hematocrit 30.9(L) 35.7 - 45.8 % [facility] MCV 96.9(H) 82.6 - 94.4 fL [facility] MCH 32.9(H) 27.1 - 32.0 pg [facility] MCHC 34.0 31.7 - 35.0 gm/dL [facility] Platelets 92(L) 145 - 357 x10(3)/[facility] RDWSD 42.7 37.0 - 46.0 [facility] RDWCV 11.9 11.5 - 14.1 % [facility] MPV 11.1 7.6 - 12.9 [facility] nRBC % Auto 0.0 % [facility] nRBC Abs Auto 0.000 0.000 - 0.000 x10(3)/[facility] Blood specimen (specimen) 01/21/2021 4:43 AM EDT 01/21/2021 4:50 AM EDT Narrative Resulting Agency Comment Spec In Lab Freddie Montes MD HEMATOLOGY ORDERABLE S Performing Organization Address City/[facility]/ZIP Co de Phone Number [facility] [place] [address] * Magnesium (01/21/2021 4:43 AM EDT) Magnesium 0.89 0.69 - 1.07 mmol/L [facility] Blood specimen (specimen) 01/21/2021 4:43 AM EDT 01/21/2021 4:50 AM EDT Narrative Resulting Agency Comment Spec In Lab Katt Dumont MD CHEMISTRY ORDERABLES Performing Organization Address [facility]/ZIP Co de Phone Number [facility] [place] [address] * (ABNORMAL) Basic Metabolic Panel (non-fasting) (01/21/2021 4:43 AM EDT) Glucose Lvl 102 65 - 199 mg/dL [facility] Comment:Diabetes: >=200 mg/d L plus symptoms BUN 28(H) 8 - 18 mg/dL [facility] Creatinine 1.79(H) 0.70 - 1.20 mg/dL [facility] Sodium 131(L) 135 - 145 mmol/L [facility] Potassium 4.4 3.5 - 5.0 mmol/L [facility] Comment: Please note: ??Patients with WBC >100,000 may have falsely elevated Potassium levels. ??For accurate Potassium quantification in these patients send serum separator tube (gold top) for subsequent determinations. ??Contact the Clinical Chemistry Laboratory if there are any questions. Chloride 97(L) 98 - 107 mmol/L [facility] CO2 25 22 - 31 mmol/L [facility] Anion Gap 9 5 - 15 mmol/L [facility] Calcium 8.7 8.5 - 10.5 mg/dL [facility] Estimated GFR 29(L) >=60 mL/min/1. 73 m?? [facility] Comment: This patient? s estimated [...] in addition to eGFR. Blood specimen (specimen) 01/21/2021 4:43 AM EDT 01/21/2021 4:50 AM EDT Narrative Resulting Agency Comment Spec In Lab Katt Dumont MD CHEMISTRY ORDERABLES Performing Organization Address [facility] Co de Phone Number [facility] [place] [address] * POCT Glucose (01/21/2021 3:19 AM EDT) POC Glucose 118 65 - 199 mg/dL [facility] Comment: Supplemental ranges: <140 mg/dL before meals <180 mg/dL all other times of the day Blood specimen (specimen) 01/21/2021 3:19 AM EDT 01/21/2021 3:19 AM EDT Travis Callahan MD POINT OF CARE TEST O RDERABLES Performing Organization Address [facility]/ZIP Co de Phone Number [facility] [place] [address] * POCT Glucose (01/20/2021 11:19 PM EDT) POC Glucose 115 65 - 199 mg/dL [facility] Comment: Supplemental ranges: <140 mg/dL before meals <180 mg/dL all other times of the day Blood specimen (specimen) 01/20/2021 11:19 PM EDT 01/20/2021 11:19 PM EDT Travis Callahan MD POINT OF CARE TEST O RDERAMARIE Performing Organization Address [facility] Co de Phone Number [facility] [place] [address] * POCT Glucose (01/20/2021 7:35 PM EDT) POC Glucose 119 65 - 199 mg/dL [facility] Comment: Supplemental ranges: <140 mg/dL before meals <180 mg/dL all other times of the day Blood specimen (specimen) 01/20/2021 7:35 PM EDT 01/20/2021 7:35 PM EDT Travis Callahan MD POINT OF CARE TEST O MEIERAMARIE Performing Organization Address [facility] Co de Phone Number [facility] [place] [address] * POCT Glucose (01/20/2021 4:05 PM EDT) POC Glucose 181 65 - 199 mg/dL [facility] Comment: Supplemental ranges: <140 mg/dL before meals <180 mg/dL all other times of the day Blood specimen (specimen) 01/20/2021 4:05 PM EDT 01/20/2021 4:05 PM EDT Travis Callahan MD POINT OF CARE TEST O RDERAMARIE Performing Organization Address [facility] Co de Phone Number [facility] [place] [address] * POCT Glucose (01/20/2021 11:30 AM EDT) POC Glucose 152 65 - 199 mg/dL [facility] Comment: Supplemental ranges: <140 mg/dL before meals <180 mg/dL all other times of the day Blood specimen (specimen) 01/20/2021 11:30 AM EDT 01/20/2021 11:30 AM EDT Travis Callahan MD POINT OF CARE TEST O RDERAMARIE Performing Organization Address City/[facility]/ZIP Co de Phone Number [facility] [place] [address] * POCT Glucose (01/20/2021 6:52 AM EDT) Pathologist [facility] POC Glucose 155 65 - 199 mg/dL [facility] Comment: Supplemental ranges: <140 mg/dL before meals <180 mg/dL all other times of the day Blood specimen (specimen) 01/20/2021 6:52 AM EDT 01/20/2021 6:52 AM EDT Travis Callahan MD POINT OF CARE TEST O MAUREEN Performing Organization Address [facility] Co de Phone Number [facility] [place] [address] * (ABNORMAL) Differential, Automated (01/20/2021 4:19 AM EDT) Pathologist [facility] Neutrophils % 83.9 % [facility] Neutr Abs (ANC) 16.88(H) 1.70 - 6.10 x10(3)/mc L [facility] Lymphocytes % 8.4 % [facility] Lymphocytes Abs 1.7 0.9 - 3.2 x10(3)/ L [facility] Monocytes % 5.4 % [facility] Monocyte Abs 1.1(H) 0.3 - 0.9 x10(3)/mc L [facility] Eosinophils % 0.0 % [facility] Eosinophils Abs 0.0 0.0 - 0.4 x10(3)/mc L [facility] Basophils % 0.1 % [facility] Basophils Abs 0.0 0.0 - 0.1 x10(3)/mc L [facility] Immature Gran % 2.20 % [facility] Comment: Immature granulocytes(IG's)percentage and absolute count will include metamyelocytes, myelocytes, and promyelocytes. Blood smears from CBCs yielding IG's will be scanned manually for concordance. If this scan disagrees with the automated IG or if promyelocytes are noted, a manual differential will be performed. Anya Gran Abs 0.44(H) 0.00 - 0.04 x10(3)/ L [facility] Blood specimen (specimen) 01/20/2021 4:19 AM EDT 01/20/2021 4:38 AM EDT Narrative Resulting Agency Comment Spec In Lab Freddie Montes MD HEMATOLOGY ORDERABLE S [facility] [place] [address] * (ABNORMAL) Hemogram (01/20/2021 4:19 AM EDT) WBC 20.1(H) 4.0 - 9.5 x10(3)/[facility] RBC 3.58(L) 4.00 - 5.21 x10(6)/[facility] Hemoglobin 11.4(L) 11.7 - 15.5 gm/dL [facility] Hematocrit 34.0(L) 35.7 - 45.8 % [facility] MCV 95.0(H) 82.6 - 94.4 fL [facility] MCH 31.8 27.1 - 32.0 pg [facility] MCHC 33.5 31.7 - 35.0 gm/dL [facility] Platelets 134(L) 145 - 357 x10(3)/[facility] RDWSD 41.2 37.0 - 46.0 fL [facility] RDWCV 11.9 11.5 - 14.1 % [facility] MPV 11.0 7.6 - 12.9 [facility] nRBC % Auto 0.0 % [facility] nRBC Abs Auto 0.000 0.000 - 0.000 x10(3)/mcL [facility] Blood specimen (specimen) 01/20/2021 4:19 AM EDT 01/20/2021 4:38 AM EDT Narrative Resulting Agency Comment Spec In Lab Freddie Montes MD HEMATOLOGY ORDERABLE S Performing Organization Address [facility] Co de Phone Number [facility] [place] [address] * Magnesium (01/20/2021 4:19 AM EDT) Magnesium 0.69 0.69 - 1.07 mmol/L [facility] Blood specimen (specimen) 01/20/2021 4:19 AM EDT 01/20/2021 4:38 AM EDT Narrative Resulting Agency Comment Spec In Lab Katt Dumnot MD CHEMISTRY ORDERABLES Performing Organization Address [facility] Co de Phone Number [facility] [place] [address] * (ABNORMAL) Basic Metabolic Panel (non-fasting) (01/20/2021 4:19 AM EDT) Glucose Lvl 136 65 - 199 mg/dL [facility] Comment:Diabetes: >=200 mg/d L plus symptoms BUN 19(H) 8 - 18 mg/dL [facility] Creatinine 1.06 0.70 - 1.20 mg/dL [facility] Sodium 132(L) 135 - 145 mmol/L [facility] Potassium 3.5 3.5 - 5.0 mmol/L [facility] Comment: Please note: ??Patients with WBC >100,000 may have falsely elevated Potassium levels. ??For accurate Potassium quantification in these patients send serum separator tube (gold top) for subsequent determinations. ??Contact the Clinical Chemistry Laboratory if there are any questions. Chloride 97(L) 98 - 107 mmol/L [facility] CO2 27 22 - 31 mmol/L [facility] Anion Gap 8 5 - 15 mmol/L [facility] Calcium 9.1 8.5 - 10.5 mg/dL [facility] Estimated GFR 54(L) >=60 mL/min/1. 73 m?? [facility] Comment: This patient? s estimated glomerular filtration rate (eGFR) is between 54 mL/min/1.73 m2 (patients with less muscle mass) and 63 mL/min/1.73 m2 (patients with more muscle mass) [...] in addition to eGFR. Blood specimen (specimen) 01/20/2021 4:19 AM EDT 01/20/2021 4:38 AM EDT Narrative Resulting Agency Comment Spec In Lab Katt Dumont MD CHEMISTRY ORDERABLES Performing Organization Address City/[facility]/ZIP Co de Phone Number [facility] [place] [address] * POCT Glucose (01/20/2021 4:12 AM EDT) POC Glucose 128 65 - 199 mg/dL [facility] Comment: Supplemental ranges: <140 mg/dL before meals <180 mg/dL all other times of the day Blood specimen (specimen) 01/20/2021 4:12 AM EDT 01/20/2021 4:12 AM EDT Travis Callahan MD POINT OF CARE TEST O RDERABLES Performing Organization Address City/[facility]/ZIP Co de Phone Number [facility] [place] [address] * POCT Glucose (01/19/2021 11:19 PM EDT) POC Glucose 138 65 - 199 mg/dL [facility] Comment: Supplemental ranges: <140 mg/dL before meals <180 mg/dL all other times of the day Blood specimen (specimen) 01/19/2021 11:19 PM EDT 01/19/2021 11:19 PM EDT Travis Callahan MD POINT OF CARE TEST Scar REDDY Performing Organization Address [facility] de Phone Number [facility] [place] [address] * POCT Glucose (01/19/2021 8:53 PM EDT) POC Glucose 139 65 - 199 mg/dL [facility] Comment: Supplemental ranges: <140 mg/dL before meals <180 mg/dL all other times of the day Blood specimen (specimen) 01/19/2021 8:53 PM EDT 01/19/2021 8:53 PM EDT Travis Callahan MD POINT OF CARE TEST Scar REDDY Performing Organization Address [facility] de Phone Number [facility] [place] [address] * CT Abdomen & Pelvis w Contrast (01/19/2021 4:50 PM EDT) Anatomical Region Laterality Modality Abdomen, Pelvis Computed Tomogra phy Impressions 01/19/2021 5:41 PM EDT 1. Small, approximately 2 mm stone within the distal CBD secondary to residual choledocholithiasis. 2. Mild to moderate predominantly perihepatic ascites secondary to known pancreatitis. No evidence of drainable fluid collections. Thank you for letting us participate in the care of this patient. ??If you are a health care provider and have any questions regarding this report, please contact the number below. ??For patients who have questions please contact the health career education teacher that requested your imaging first. ? Electronically signed by: TAHIR Babcock [facility] ([phone]), at 01/19/2021 5:41 PM Narrative 01/19/2021 5:41 PM EDT EXAMINATION: CT ABDOMEN AND PELVIS W CONTRAST CLINICAL HISTORY: Epigastric pain Concern for worsening pancreatitis after ERCP. Rising WBC count today TECHNIQUE: Helical CT of the abdomen and pelvis was performed following the intravenous administration of contrast. Administered 88.0 ml of OMNIPAQUE 350.00 mg/ml. Oral contrast was administered. COMPARISON: None FINDINGS: Lower chest: Normal. Liver: Normal size and attenuation without lesions. Bile ducts: Nondilated. The CBD is measuring approximately 7 mm. There is minimal approximately 2 mm calcification projecting at the distal aspect of the CBD, secondary to residual choledocholithiasis (seen on image 67, series 900) Gallbladder: Surgically absent. Pancreas: Normal attenuation without evidence of necrosis or ductal dilatation. Spleen: Normal. Adrenals: Normal. Kidneys: Normal. Urinary Bladder: Normal. Vasculature: No aneurysm. Lymph Nodes: No enlarged lymph nodes. Bowel: Nondilated, no wall thickening. ?? Peritoneum and mesentery: There is mild to moderate abdominal ascites predominantly within the perihepatic region and adjacent to the duodenum/head of the pancreas. Mild pelvic ascites is also identified. No drainable fluid collections are seen. There is no evidence of free air. Abdominal wall: Normal. Reproductive organs: Unremarkable Osseous structures: No suspicious lesions. Procedure Note Robert Ding MD - 01/19/2021 EXAMINATION: CT ABDOMEN AND PELVIS W CONTRAST CLINICAL HISTORY: Epigastric pain Concern for worsening pancreatitis after ERCP. Rising WBC count today TECHNIQUE: Helical CT of the abdomen and pelvis was performed followingthe intravenous administration of contrast. Administered 88.0 ml of SPUOFSFNR237.00 mg/ml. Oral contrast was administered. COMPARISON: None FINDINGS: Lower chest: Normal. Liver: Normal size and attenuation without lesions. Bile ducts: Nondilated. The CBD is measuring approximately 7 mm. Thereis minimal approximately 2 mm calcification projecting at the distal aspectof the CBD, secondary to residual choledocholithiasis (seen on image 67, ) Gallbladder: Surgically absent. Pancreas: Normal attenuation without evidence of necrosis or ductaldilatation. Spleen: Normal. Adrenals: Normal. Kidneys: Normal. Urinary Bladder: Normal. Vasculature: No aneurysm. Lymph Nodes: No enlarged lymph nodes. Bowel: Nondilated, no wall thickening. Peritoneum and mesentery: There is mild to moderate abdominal ascites predominantly within the perihepatic region and adjacent to theduodenum/head of the pancreas. Mild pelvic ascites is also identified. No drainable fluid collections are seen. There is no evidence of free air. Abdominal wall: Normal. Reproductive organs: Unremarkable Osseous structures: No suspicious lesions. IMPRESSION 1. Small, approximately 2 mm stone within the distal CBD secondary toresidual choledocholithiasis. 2. Mild to moderate predominantly perihepatic ascites secondary to known pancreatitis. No evidence of drainable fluid collections. Thank you for letting us participate in the care of this patient. If youare a health care provider and have any questions regarding this report,please contact the number below. For patients who have questions please contactthe health career education teacher that requested your imaging first. Travis Callahan MD IMG CT ORDERABLES * POCT Glucose (01/19/2021 4:18 PM EDT) POC Glucose 162 65 - 199 mg/dL [facility] Comment: Supplemental ranges: <140 mg/dL before meals <180 mg/dL all other times of the day Blood specimen (specimen) 01/19/2021 4:18 PM EDT 01/19/2021 4:18 PM EDT Travis Callahan MD POINT OF CARE TEST O RDERABLES [facility] [place] [address] * POCT Glucose (01/19/2021 11:11 AM EDT) POC Glucose 168 65 - 199 mg/dL [facility] Comment: Supplemental ranges: <140 mg/dL before meals <180 mg/dL all other times of the day Blood specimen (specimen) 01/19/2021 11:11 AM EDT 01/19/2021 11:11 AM EDT Travis Callahan MD POINT OF CARE TEST O RDERABLES [facility] [place] [address] * POCT Glucose (01/19/2021 6:40 AM EDT) POC Glucose 186 65 - 199 mg/dL [facility] Comment: Supplemental ranges: <140 mg/dL before meals <180 mg/dL all other times of the day Blood specimen (specimen) 01/19/2021 6:40 AM EDT 01/19/2021 6:40 AM EDT Travis Callahan MD POINT OF CARE TEST O RDERABLES [facility] [place] [address] * POCT Glucose (01/19/2021 4:12 AM EDT) POC Glucose 155 65 - 199 mg/dL [facility] Comment: Supplemental ranges: <140 mg/dL before meals <180 mg/dL all other times of the day Blood specimen (specimen) 01/19/2021 4:12 AM EDT 01/19/2021 4:12 AM EDT Travis Callahan MD POINT OF CARE TEST O RDERAMARIE [facility] [place] [address] * (ABNORMAL) Differential, Automated (01/19/2021 3:06 AM EDT) Neutrophils % 85.2 % [facility] Neutr Abs (ANC) 17.04(H) 1.70 - 6.10 x10(3)/[facility] LABORATORY Lymphocytes % 7.7 % [facility] Lymphocytes Abs 1.6 0.9 - 3.2 x10(3)/[facility] Monocytes % 6.3 % [facility] Monocyte Abs 1.3(H) 0.3 - 0.9 x10(3)/[facility] Eosinophils % 0.0 % [facility] Eosinophils Abs 0.0 0.0 - 0.4 x10(3)/[facility] Basophils % 0.0 % [facility] Basophils Abs 0.0 0.0 - 0.1 x10(3)/[facility] Immature Gran % 0.80 % [facility] Comment: Immature granulocytes(IG's)percentage and absolute count will include metamyelocytes, myelocytes, and promyelocytes. Blood smears from CBCs yielding IG's will be scanned manually for concordance. If this scan disagrees with the automated IG or if promyelocytes are noted, a manual differential will be performed. Anya Gran Abs 0.17(H) 0.00 - 0.04 x10(3)/[facility] Blood specimen (specimen) 01/19/2021 3:06 AM EDT 01/19/2021 3:19 AM EDT Narrative Resulting Agency Comment Spec In Lab Freddie Montes MD HEMATOLOGY ORDERABLE S [facility] [place] [address] * (ABNORMAL) Hemogram (01/19/2021 3:06 AM EDT) Pathologist [facility] WBC 20.0(H) 4.0 - 9.5 x10(3)/[facility] LAB[facility]ATORY RBC 3.98(L) 4.00 - 5.21 x10(6)/[facility] Hemoglobin 12.9 11.7 - 15.5 gm/dL [facility] Hematocrit 37.3 35.7 - 45.8 % [facility] MCV 93.7 82.6 - 94.4 [facility] MCH 32.4(H) 27.1 - 32.0 pg [facility] MCHC 34.6 31.7 - 35.0 gm/dL [facility] Platelets 149 145 - 357 x10(3)/[facility] LAB[facility]ORY RDWSD 40.5 37.0 - 46.0 [facility] RDWCV 11.8 11.5 - 14.1 % [facility] MPV 11.0 7.6 - 12.9 [facility] nRBC % Auto 0.0 % [facility] nRBC Abs Auto 0.000 0.000 - 0.000 x10(3)/[facility] Blood specimen (specimen) 01/19/2021 3:06 AM EDT 01/19/2021 3:19 AM EDT Narrative Resulting Agency Comment Spec In Lab Freddie Montes MD HEMATOLOGY ORDERABLE S [facility] [place] [address] * (ABNORMAL) Magnesium (01/19/2021 3:06 AM EDT) Pathologist [facility] Magnesium 0.57(L) 0.69 - 1.07 mmol/L [facility] Blood specimen (specimen) 01/19/2021 3:06 AM EDT 01/19/2021 3:20 AM EDT Narrative Resulting Agency Comment Spec In Lab Katt Dumont MD CHEMISTRY ORDERABLES Performing Organization Address City/[facility]/ZIP Co de Phone Number [facility] [place] [address] * (ABNORMAL) Lipase (01/19/2021 3:06 AM EDT) Lipase 891(H) 0 - 60 unit/L [facility] Comment:result rechecked-KS Blood specimen (specimen) 01/19/2021 3:06 AM EDT 01/19/2021 3:20 AM EDT Narrative Resulting Agency Comment Spec In Lab Katt Dumont MD CHEMISTRY ORDERABLES Performing Organization Address [facility] Co de Phone Number [facility] [place] [address] * (ABNORMAL) Basic Metabolic Panel (non-fasting) (01/19/2021 3:06 AM EDT) Glucose Lvl 169 65 - 199 mg/dL [facility] Comment:Diabetes: >=200 mg/d L plus symptoms BUN 25(H) 8 - 18 mg/dL [facility] Creatinine 0.98 0.70 - 1.20 mg/dL [facility] Sodium 135 135 - 145 mmol/L [facility] Potassium 3.6 3.5 - 5.0 mmol/L [facility] Comment: Please note: ??Patients with WBC >100,000 may have falsely elevated Potassium levels. ??For accurate Potassium quantification in these patients send serum separator tube (gold top) for subsequent determinations. ??Contact the Clinical Chemistry Laboratory if there are any questions. Chloride 101 98 - 107 mmol/L [facility] CO2 25 22 - 31 mmol/L [facility] Anion Gap 9 5 - 15 mmol/L [facility] Calcium 9.2 8.5 - 10.5 mg/dL [facility] Estimated GFR 60 >=60 mL/min/1. 73 m?? [facility] Comment: This patient? s estimated glomerular filtration rate (eGFR) is between 60 mL/min/1.73 m2 (patients with less muscle mass) and 69 mL/min/1.73 m2 (patients with more muscle mass) [...] in addition to eGFR. Blood specimen (specimen) 01/19/2021 3:06 AM EDT 01/19/2021 3:20 AM EDT Narrative Resulting Agency Comment Spec In Lab Katt Dumont MD CHEMISTRY ORDERABLES [facility] [place] [address] * (ABNORMAL) Hemoglobin A1c (01/19/2021 3:06 AM EDT) Hemoglobin A1C 7.0(H) 4.3 - 5.6 % [facility] Comment: Reference Range: 4.3 - [...] Mellitus, Diabetes Care 2013; 36: Suppl. 1, S67-22 Est Avg Gluc 156 mg/dL [facility] Comment: eAG equivalents for HbA1c percentages: [...] into estimated average glucose values. ??Diabetes Care 2008:31(8):5254-0899. Blood specimen (specimen) 01/19/2021 3:06 AM EDT 01/19/2021 3:21 AM EDT Narrative Resulting Agency Comment Spec In Lab Travis Callahan MD CHEMISTRY ORDERABLES Performing Organization Address [facility] Co de Phone Number [facility] [place] [address] * POCT Glucose (01/19/2021 12:42 AM EDT) [facility] POC Glucose 173 65 - 199 mg/dL [facility] Comment: Supplemental ranges: <140 mg/dL before meals <180 mg/dL all other times of the day Blood specimen (specimen) 01/19/2021 12:42 AM EDT 01/19/2021 12:42 AM EDT Travis Callahan MD POINT OF CARE TEST O RDERABLES Performing Organization Address [facility] Co de Phone Number [facility] [place] [address] * (ABNORMAL) POCT Glucose (01/18/2021 8:59 PM EDT) POC Glucose 205(H) 65 - 199 mg/dL [facility] Comment: Supplemental ranges: <140 mg/dL before meals <180 mg/dL all other times of the day Blood specimen (specimen) 01/18/2021 8:59 PM EDT 01/18/2021 8:59 PM EDT Travis Callahan MD POINT OF CARE TEST O RDERAMARIE Performing Organization Address City/[facility]/ZIP Co de Phone Number [facility] [place] [address] * (ABNORMAL) POCT Glucose (01/18/2021 3:56 PM EDT) POC Glucose 220(H) 65 - 199 mg/dL [facility] Comment: Supplemental ranges: <140 mg/dL before meals <180 mg/dL all other times of the day Blood specimen (specimen) 01/18/2021 3:56 PM EDT 01/18/2021 3:56 PM EDT Travis Callahan MD POINT OF CARE TEST O MAUREEN Performing Organization Address [facility] Co de Phone Number [facility] [place] [address] * (ABNORMAL) POCT Glucose (01/18/2021 11:28 AM EDT) POC Glucose 226(H) 65 - 199 mg/dL [facility] Comment: Supplemental ranges: <140 mg/dL before meals <180 mg/dL all other times of the day Blood specimen (specimen) 01/18/2021 11:28 AM EDT 01/18/2021 11:28 AM EDT Travis Callahan MD POINT OF CARE TEST O MEIERAMARIE Performing Organization Address City/[facility] [facility]/ZIP Co de Phone Number [facility] [place] [address] * (ABNORMAL) POCT Glucose (01/18/2021 6:36 AM EDT) Pathologist [facility] POC Glucose 234(H) 65 - 199 mg/dL [facility] Comment: Supplemental ranges: <140 mg/dL before meals <180 mg/dL all other times of the day Blood specimen (specimen) 01/18/2021 6:36 AM EDT 01/18/2021 6:36 AM EDT Eliel Leigh MD POINT OF CARE TEST O RDERABLES [facility] [place] [address] * (ABNORMAL) Differential, Automated (01/18/2021 4:00 AM EDT) [facility] Neutrophils % 85.1 % [facility] Neutr Abs (ANC) 11.17(H) 1.70 - 6.10 x10(3)/mc L [facility] Lymphocytes % 8.8 % [facility] Lymphocytes Abs 1.2 0.9 - 3.2 x10(3)/mc L [facility] Monocytes % 5.5 % [facility] Monocyte Abs 0.7 0.3 - 0.9 x10(3)/mc L [facility] Eosinophils % 0.0 % [facility] Eosinophils Abs 0.0 0.0 - 0.4 x10(3)/mc L [facility] Basophils % 0.1 % [facility] Basophils Abs 0.0 0.0 - 0.1 x10(3)/mc L [facility] Immature Gran % 0.50 % [facility] Comment: Immature granulocytes(IG's)percentage and absolute count will include metamyelocytes, myelocytes, and promyelocytes. Blood smears from CBCs yielding IG's will be scanned manually for concordance. If this scan disagrees with the automated IG or if promyelocytes are noted, a manual differential will be performed. Anya Gran Abs 0.07(H) 0.00 - 0.04 x10(3)/ L [facility] Blood specimen (specimen) 01/18/2021 4:00 AM EDT 01/18/2021 4:22 AM EDT Narrative Resulting Agency Comment Spec In Lab Freddie Montes MD HEMATOLOGY ORDERABLE S [facility] [place] [address] * (ABNORMAL) Hemogram (01/18/2021 4:00 AM EDT) WBC 13.1(H) 4.0 - 9.5 x10(3)/[facility] RBC 4.33 4.00 - 5.21 x10(6)/[facility] Hemoglobin 13.9 11.7 - 15.5 gm/dL [facility] Hematocrit 39.9 35.7 - 45.8 % [facility] MCV 92.1 82.6 - 94.4 [facility] MCH 32.1(H) 27.1 - 32.0 pg [facility] MCHC 34.8 31.7 - 35.0 gm/dL [facility] Platelets 180 145 - 357 x10(3)/[facility] RDWSD 39.2 37.0 - 46.0 [facility] RDWCV 11.7 11.5 - 14.1 % [facility] MPV 10.8 7.6 - 12.9 [facility] nRBC % Auto 0.0 % [facility] nRBC Abs Auto 0.000 0.000 - 0.000 x10(3)/[facility] Blood specimen (specimen) 01/18/2021 4:00 AM EDT 01/18/2021 4:22 AM EDT Narrative Resulting Agency Comment Spec In Lab Freddie Montes MD HEMATOLOGY ORDERABLE S Performing Organization Address [facility]/ZIP Co de Phone Number [facility] [place] [address] * (ABNORMAL) Magnesium (01/18/2021 4:00 AM EDT) [facility] Magnesium 0.59(L) 0.69 - 1.07 mmol/L [facility] Blood specimen (specimen) 01/18/2021 4:00 AM EDT 01/18/2021 4:22 AM EDT Narrative Resulting Agency Comment Spec In Lab Katt Dumont MD CHEMISTRY ORDERABLES Performing Organization Address [facility] Co de Phone Number [facility] [place] [address] * (ABNORMAL) Lipase (01/18/2021 4:00 AM EDT) [facility] Lipase >3,000(H) 0 - 60 unit/L [facility] Blood specimen (specimen) 01/18/2021 4:00 AM EDT 01/18/2021 4:22 AM EDT Narrative Resulting Agency Comment Spec In Lab Katt Dumont MD CHEMISTRY ORDERABLES Performing Organization Address [facility] Co de Phone Number [facility] [place] [address] * (ABNORMAL) Basic Metabolic Panel (non-fasting) (01/18/2021 4:00 AM EDT) [facility] Glucose Lvl 229(H) 65 - 199 mg/dL [facility] Comment:Diabetes: >=200 mg/d L plus symptoms BUN 34(H) 8 - 18 mg/dL [facility] Creatinine 1.24(H) 0.70 - 1.20 mg/dL [facility] Sodium 137 135 - 145 mmol/L [facility] Potassium 3.9 3.5 - 5.0 mmol/L [facility] Comment: Please note: ??Patients with WBC >100,000 may have falsely elevated Potassium levels. ??For accurate Potassium quantification in these patients send serum separator tube (gold top) for subsequent determinations. ??Contact the Clinical Chemistry Laboratory if there are any questions. Chloride 103 98 - 107 mmol/L [facility] CO2 20(L) 22 - 31 mmol/L [facility] Anion Gap 14 5 - 15 mmol/L [facility] Calcium 9.9 8.5 - 10.5 mg/dL [facility] Estimated GFR 45(L) >=60 mL/min/1. 73 m?? [facility] Comment: This patient? s estimated [...] in addition to eGFR. Blood specimen (specimen) 01/18/2021 4:00 AM EDT 01/18/2021 4:22 AM EDT Narrative Resulting Agency Comment Spec In Lab Katt Dumont MD CHEMISTRY ORDERABLES [facility] [place] [address] * (ABNORMAL) POCT Glucose (01/18/2021 3:58 AM EDT) POC Glucose 232(H) 65 - 199 mg/dL [facility] Comment: Supplemental ranges: <140 mg/dL before meals <180 mg/dL all other times of the day Blood specimen (specimen) 01/18/2021 3:58 AM EDT 01/18/2021 3:58 AM EDT Eliel Leigh MD POINT OF CARE TEST O RDERAMARIE Performing Organization Address City/[facility]/ZIP Co de Phone Number [facility] [place] [address] * (ABNORMAL) POCT Glucose (01/17/2021 11:27 PM EDT) POC Glucose 253(H) 65 - 199 mg/dL [facility] Comment: Supplemental ranges: <140 mg/dL before meals <180 mg/dL all other times of the day Blood specimen (specimen) 01/17/2021 11:27 PM EDT 01/17/2021 11:27 PM EDT Eliel Leigh MD POINT OF CARE TEST O MAUREEN Performing Organization Address [facility] Co de Phone Number [facility] [place] [address] * COVID-19 PCR (01/17/2021 10:22 PM EDT) Pathologist [facility] SARS-CoV-2 RNA PCR Not Detected Not Detected [facility] Comment: This result should be [...] using the Simplexa COVID-19 Direct Assay by [employer] 3 as authorized by the FDA issued Emergency [...] Department of Pathology and Laboratory Medicine at [facility], certified under the Clinical Laboratory Improvement [...] fact sheets at the following FDA website: https://www.fda.gov/medical-devices/cglugnbhzgw-pssgugv-6046-nfyxn-73-dhitcusdx- use-a gnuzqvhpeqohb-fojlgyf-egcrlxz/jrwxa-hvqfeqziozd-stef SARS-CoV-2 Source [employer] Swab [facility] Nasopharyngeal swab (specimen) 01/17/2021 10:22 PM EDT 01/17/2021 11:10 PM EDT Comment:Symptoms->Surveillan ce Narrative Resulting Agency Comment Spec In Lab Katt Dumont MD MICROBIOLOGY - GENER AL ORDERABLES [facility] [place] [address] * (ABNORMAL) Differential, Automated (01/17/2021 8:51 PM EDT) Neutrophils % 91.0 % [facility] Neutr Abs (ANC) 12.57(H) 1.70 - 6.10 x10(3)/mc L [facility] Lymphocytes % 5.4 % [facility] Lymphocytes Abs 0.8(L) 0.9 - 3.2 x10(3)/[facility] LABORATORY Monocytes % 3.2 % [facility] Monocyte Abs 0.4 0.3 - 0.9 x10(3)/[facility] LABORATORY Eosinophils % 0.0 % [facility] Eosinophils Abs 0.0 0.0 - 0.4 x10(3)/[facility] Basophils % 0.1 % [facility] Basophils Abs 0.0 0.0 - 0.1 x10(3)/[facility] Immature Gran % 0.30 % [facility] Comment: Immature granulocytes(IG's)percentage and absolute count will include metamyelocytes, myelocytes, and promyelocytes. Blood smears from CBCs yielding IG's will be scanned manually for concordance. If this scan disagrees with the automated IG or if promyelocytes are noted, a manual differential will be performed. Anya Gran Abs 0.04 0.00 - 0.04 x10(3)/[facility] Blood specimen (specimen) 01/17/2021 8:51 PM EDT 01/17/2021 8:54 PM EDT Narrative Resulting Agency Comment Spec In Lab Freddie Montes MD HEMATOLOGY ORDERABLE S Performing Organization Address City/State/[facility] Co de Phone Number [facility] [place] [address] * (ABNORMAL) Hemogram (01/17/2021 8:51 PM EDT) WBC 13.8(H) 4.0 - 9.5 x10(3)/[facility] LABORATORY RBC 4.44 4.00 - 5.21 x10(6)/[facility] Hemoglobin 14.2 11.7 - 15.5 gm/dL [facility] Hematocrit 41.2 35.7 - 45.8 % [facility] MCV 92.8 82.6 - 94.4 fL [facility] MCH 32.0 27.1 - 32.0 pg [facility] MCHC 34.5 31.7 - 35.0 gm/dL [facility] Platelets 186 145 - 357 x10(3)/[facility] LABORATORY RDWSD 39.9 37.0 - 46.0 [facility] RDWCV 11.7 11.5 - 14.1 % [facility] MPV 10.4 7.6 - 12.9 [facility] nRBC % Auto 0.0 % [facility] nRBC Abs Auto 0.000 0.000 - 0.000 x10(3)/[facility] Blood specimen (specimen) 01/17/2021 8:51 PM EDT 01/17/2021 8:54 PM EDT Narrative Resulting Agency Comment Spec In Lab Freddie Montes MD HEMATOLOGY ORDERABLE S Performing Organization Address City/[facility]/ZIP Co de Phone Number [facility] [place] [address] * (ABNORMAL) Lipase (01/17/2021 8:51 PM EDT) Lipase >3,000(H) 0 - 60 unit/L [facility] Blood specimen (specimen) 01/17/2021 8:51 PM EDT 01/17/2021 8:54 PM EDT Narrative Resulting Agency Comment Spec In Lab Katt Dumont MD CHEMISTRY ORDERABLES Performing Organization Address City/[facility]/ZIP Co de Phone Number [facility] [place] [address] * (ABNORMAL) Hepatic Function Panel (01/17/2021 8:51 PM EDT) Total Protein 8.1(H) 6.1 - 8.0 gm/dL [facility] Albumin 4.6 3.2 - 5.2 gm/dL [facility] AST 224(H) 0 - 30 unit/L [facility] ALT 152(H) 0 - 30 unit/L [facility] Alk Phos 111(H) 35 - 105 unit/L [facility] Total Bilirubin 0.6 0.2 - 1.3 mg/dL [facility] Bili, Direct 0.3 0.0 - 0.3 mg/dL [facility] Blood specimen (specimen) 01/17/2021 8:51 PM EDT 01/17/2021 8:54 PM EDT Narrative Resulting Agency Comment Spec In Lab Katt Dumont MD CHEMISTRY ORDERABLES [facility] [place] [address] * Phosphorus (01/17/2021 8:51 PM EDT) Phosphorus 3.5 2.5 - 4.5 mg/dL [facility] Blood specimen (specimen) 01/17/2021 8:51 PM EDT 01/17/2021 8:54 PM EDT Narrative Resulting Agency Comment Spec In Lab Katt Dumont MD CHEMISTRY ORDERABLES [facility] [place] [address] * (ABNORMAL) Magnesium (01/17/2021 8:51 PM EDT) Magnesium 0.63(L) 0.69 - 1.07 mmol/L [facility] Blood specimen (specimen) 01/17/2021 8:51 PM EDT 01/17/2021 8:54 PM EDT Narrative Resulting Agency Comment Spec In Lab Katt Dumont MD CHEMISTRY ORDERABLES [facility] [place] [address] * Calcium (01/17/2021 8:51 PM EDT) Pathologist [facility] Calcium 10.2 8.5 - 10.5 mg/dL [facility] Blood specimen (specimen) 01/17/2021 8:51 PM EDT 01/17/2021 8:54 PM EDT Narrative Resulting Agency Comment Spec In Lab Katt Dumont MD CHEMISTRY ORDERABLES Performing Organization Address [facility]/ZIP Co de Phone Number [facility] [place] [address] * (ABNORMAL) Basic Metabolic Panel (non-fasting) (01/17/2021 8:51 PM EDT) [facility] Glucose Lvl 260(H) 65 - 199 mg/dL [facility] Comment:Diabetes: >=200 mg/d L plus symptoms BUN 36(H) 8 - 18 mg/dL [facility] Creatinine 1.20 0.70 - 1.20 mg/dL [facility] Sodium 138 135 - 145 mmol/L [facility] Potassium 4.1 3.5 - 5.0 mmol/L [facility] Comment: Please note: ??Patients with WBC >100,000 may have falsely elevated Potassium levels. ??For accurate Potassium quantification in these patients send serum separator tube (gold top) for subsequent determinations. ??Contact the Clinical Chemistry Laboratory if there are any questions. Chloride 101 98 - 107 mmol/L [facility] CO2 20(L) 22 - 31 mmol/L [facility] Anion Gap 17(H) 5 - 15 mmol/L [facility] Calcium 10.2 8.5 - 10.5 mg/dL [facility] Estimated GFR 47(L) >=60 mL/min/1. 73 m?? [facility] Comment: This patient? s estimated [...] in addition to eGFR. Blood specimen (specimen) 01/17/2021 8:51 PM EDT 01/17/2021 8:54 PM EDT Narrative Resulting Agency Comment Spec In Lab Katt Dumont MD CHEMISTRY ORDERABLES Performing Organization Address [facility] Co de Phone Number [facility] [place] [address] * (ABNORMAL) POCT Glucose (01/17/2021 8:25 PM EDT) POC Glucose 259(H) 65 - 199 mg/dL [facility] Comment: Supplemental ranges: <140 mg/dL before meals <180 mg/dL all other times of the day Blood specimen (specimen) 01/17/2021 8:25 PM EDT 01/17/2021 8:25 PM EDT Eliel Leigh MD POINT OF CARE TEST O RDERABLES Performing Organization Address City/[facility]/ZIP Co de Phone Number [facility] [place] [address] * XR ERCP (01/17/2021 6:53 PM EDT) Narrative [facility] - 01/17/2021 6:54 PM EDT See PACS for result report. Eliel Leigh MD IMG FILM LIBRARY ORD ERABLES Performing Organization Address [facility] Co de Phone Number [place], [place] * ERCP (01/17/2021 11:37 AM EDT) ERCP [facility] Endoscopy Procedure Date: 01/17/2021 11:37 AM ? Patient Name: Toyin Coley ? Date of : 1955 ? Age: 65 ? Order #: [id number] ? Instrument Name: [id number] ? Procedure: ? ERCP Indications: ? For therapy of bile duct stone(s) Providers: ? Eliel Leigh, Tayler Gomez, RODERICK, ? Beau Salazar Referring MD: ?Asia Gil Medicines: ? General Anesthesia, Ancef 2000 mg IV Complications: ? No immediate complications. Procedure: ? Pre-Anesthesia Assessment: ? - Prior to the procedure, a History ? and Physical was performed, and ? patient medications and allergies ? were reviewed. The patient is ? competent. The risks and benefits of ? the procedure and the sedation ? options and risks were discussed with ? the patient. All questions were ? answered and informed consent was ? obtained. Patient identification and ? proposed procedure were verified by ? the physician in the pre-procedure ? area. Mental Status Examination: ? alert and oriented. Airway ? Examination: normal oropharyngeal ? airway and neck mobility. Respiratory ? Examination: clear to auscultation. ? CV Examination: normal. Prophylactic ? Antibiotics: The patient requires ? prophylactic antibiotics. Prior ? Anticoagulants: The patient has taken ? no previous anticoagulant or ? antiplatelet agents. ASA Grade ? Assessment: II - A patient with mild ? systemic disease. After reviewing the ? risks and benefits, the patient was ? deemed in satisfactory condition to ? undergo the procedure. The anesthesia ? plan was to use general anesthesia. ? Immediately prior to administration ? of medications, the patient was ? re-assessed for adequacy to receive ? sedatives. The heart rate, ? respiratory rate, oxygen saturations, ? blood pressure, adequacy of pulmonary ? ventilation, and response to care ? were monitored throughout the ? procedure. The physical status of the ? patient was re-assessed after the ? procedure. ? The procedure, indications, benefits, ? risks and alternatives were explained ? to the patient. Specifically ? discussed were potential ? complications including, but not ? limited to, bleeding, perforation, ? infection, pancreatitis, missing a ? cancer, and adverse medication ? reactions.The Duodenoscope was ? introduced through the mouth, and ? advanced to the duodenum where it was ? used to inject contrast into and used ? to locate the major papilla. The ? patient tolerated the procedure well. ? Findings: ? A grips film of the abdomen was obtained. Surgical ? clips, consistent with a previous cholecystectomy, ? were seen in the area of the right upper quadrant of ? the abdomen. The esophagus was successfully intubated ? under direct vision. The scope was advanced to a ? normal major papilla in the descending duodenum ? without detailed examination of the pharynx, larynx ? and associated structures, and upper GI tract. The ? upper GI tract was grossly normal. The bile duct was ? deeply cannulated with the short-nosed traction ? sphincterotome. Contrast was injected. I personally ? interpreted the bile duct images. There was brisk ? flow of contrast through the ducts. Image quality was ? excellent. Contrast extended to the hepatic ducts and ? into the gallbladder remnant. There appeared to be a ? small stone in the gallbladder. A 0.035 inch x 260 cm ? straight Dreamwire was passed into the biliary tree. ? Biliary sphincterotomy was made with a monofilament ? traction (standard) sphincterotome using ERBE ? electrocautery. There was no post-sphincterotomy ? bleeding. To discover objects, the biliary tree was ? swept with a 9 mm balloon starting within the cystic ? duct and the confluence. Nothing was found. The bile ? duct was explored endoscopically using the SpyGlass ? direct visualization system. The SpyScope was ? advanced into the cystic duct but could not initially ? pass into the gallbladder remnant. The cystic duct ? was then dilated to 4mm and then 6mm. The SpyGlass ? prober was advanced into the gallbladder remnant and ? a small stone was identified. The stone was not ? mobile and appeared to be fixed to the wall. Attempts ? were made to obliterate the stone with ? Electrohydraulic lithotripsy, but the angle would not ? permit optimal contact. Attempts were made to ? retrieve the stone with a basket and snare were ? unsuccessful ? Moderate Sedation: ? Not applicable - See Anesthesia documentation Impression: ?- A single small cholecystolithiasis ? was found adherent to the wall of the ? gallbladder remanent ? - Ductoscopy was performed and ? attempts to disrupt and remove the ? stone with EHL, and Spy Basket and ? Spy snare were unsuccessful. Recommendation: ?- Discharge patient to home. ? - Clear liquid diet for 2 hours. ? - Observe patient's clinical course. ? - Return to referring physician and ? consider referral to surgery for ? completion cholecystectomy. ? Procedure Code(s): ?? --- Professional --- ? 75149, Esophagogastroduodenos copy, ? flexible, transoral; diagnostic, ? including collection of specimen(s) ? by brushing or washing, when ? performed (separate procedure) Diagnosis Code(s): ?? --- Professional --- ? K80.50, Calculus of bile duct without ? cholangitis or cholecystitis without ? obstruction ? K80.20, Calculus of gallbladder ? without cholecystitis without ? obstruction ? --- Technical --- ? K80.50, Calculus of bile duct without ? cholangitis or cholecystitis without ? obstruction ? K80.20, Calculus of gallbladder ? without cholecystitis without ? obstruction CPT copyright 2019 [employer]. All rights reserved. The codes documented in this report are preliminary and upon flask maker review may be revised to meet current compliance requirements. Attending Participation: ? I personally performed the entire procedure. ? Eliel Leigh, 01/17/2021 1:28:55 PM Number of Addenda: 0 Note Initiated On: 01/17/2021 11:37 AM [employer] 01/17/2021 11:3 7 AM EDT Asia Gil DO GENERAL SURGICAL O RDERABLES Performing Organization Address [facility] de Phone Number [employer] * POCT Glucose (01/17/2021 10:07 AM EDT) POC Glucose 130 65 - 199 mg/dL [facility] Comment: Supplemental ranges: <140 mg/dL before meals <180 mg/dL all other times of the day Blood specimen (specimen) 01/17/2021 10:07 AM EDT 01/16/2021 12:00 PM EDT Eliel Leigh MD POINT OF CARE TEST O RDERABLES Performing Organization Address [facility] Co de Phone Number [facility] [place] [address] documented in this encounter Visit Diagnoses Diagnosis Acute pancreatitis- Primary Cystic duct calculus Calculus of gallbladder without mention of cholecystitis or obstruction RUQ pain Abdominal pain, right upper quadrant Chest pain, unspecified type GERD (gastroesophageal reflux disease) Esophageal reflux Other acute pancreatitis without infection or necrosis Cystic duct calculus Calculus of gallbladder without mention of cholecystitis or obstruction RUQ pain Abdominal pain, right upper quadrant Left lumbar radiculopathy Thoracic or lumbosacral neuritis or radiculitis, unspecified documented in this encounter Admitting Diagnoses Diagnosis Cystic duct calculus Calculus of gallbladder without mention of cholecystitis or obstruction RUQ pain Abdominal pain, right upper quadrant Acute pancreatitis documented in this encounter Administered Medications Inactive Administered Medications - up to 3 most recent administrations Medication Order MAR Action Action Date Dose Rate Site acetaminophen (Tylenol) tablet 650 mg 650 mg, Oral, EVERY 6 HOURS PRN, Starting on Wed01/17/21 at 2027, Until Wed01/20/21 at 1124, Pain, Fever, Administer for temperature greater than or equal to 38.2 degrees celsius. Maximum daily dose of acetaminophen from all sources not to exceed 4,000 mg. When ordered for pain, acetaminophen should be given even when other ordered pain medications are indicated., Routine Given 01/20/2021 8:11 AM EDT 650 mg Given 01/19/2021 11:17 PM EDT 650 mg Given 01/19/2021 8:23 AM EDT 650 mg acetaminophen (Tylenol) tablet 650 mg 650 mg, Oral, EVERY 6 HOURS SCHEDULED, First dose (after last modification) on Wed01/20/21 at 1215, Until Discontinued, Administer for temperature greater than or equal to 38.2 degrees celsius. Maximum daily dose of acetaminophen from all sources not to exceed 4,000 mg. When ordered for pain, acetaminophen should be given even when other ordered pain medications are indicated., Routine Given 01/22/2021 6:00 AM EDT 650 mg Given 01/21/2021 11:34 PM EDT 650 mg Given 01/21/2021 5:27 PM EDT 650 mg acetaminophen (Tylenol) tablet 650 mg 650 mg, Oral, EVERY 4 HOURS PRN, Starting on Wed01/22/21 at 0945, Until Wed01/27/21 at 1509, Pain, Administer for temperature greater than or equal to 38.2 degrees celsius. Maximum daily dose of acetaminophen from all sources not to exceed 4,000 mg. When ordered for pain, acetaminophen should be given even when other ordered pain medications are indicated., Routine Given 01/27/2021 9:03 AM EDT 650 mg Given 01/26/2021 4:56 PM EDT 650 mg Given 01/26/2021 11:36 AM EDT 650 mg atorvastatin (Lipitor) tablet 40 mg 40 mg, Oral, EVERY EVENING, First dose on Wed01/17/21 at 2115, Until Discontinued, Routine Given 01/26/2021 4:56 PM EDT 40 mg Given 01/25/2021 4:24 PM EDT 40 mg Given 01/24/2021 4:43 PM EDT 40 mg bisacodyl EC (Dulcolax) tablet 20 mg 20 mg, Oral, ONCE, 1 dose, On Wed01/24/21 at 1800, DO NOT CRUSH OR OPEN, Routine Given 01/24/2021 6:19 PM EDT 20 m g calcium carbonate (Tums) chewable tablet 500-1,000 mg 500-1,000 mg, Oral, EVERY 4 HOURS PRN, Starting on 01/25/21 at 1138, Until Wed01/27/21 at 1509, Heartburn, Give 500 mg (1 tablet) for mild to moderate heartburn. Give 1,000 mg (2 tablets) for severe heartburn., Routine camphor-methyl salicyl-menthol (Bengay Ultra Strength) 4-30-10 % cream Topical (Top), NIGHTLY PRN, for foot pain, Starting on Wed01/26/21 at 2204, Until Wed01/27/21 at 1509, Application Site: bilateral feet Given 01/26/2021 10:[address] (Cymbalta) capsule 30 mg 30 mg, Oral, DAILY, First dose on 01/18/21 at 0900, Until Discontinued, Routine Given 01/27/2021 9:04 AM EDT 30 mg Given 01/26/2021 9:42 AM EDT 30 mg Given 01/25/2021 8:42 AM EDT 30 mg gabapentin (Neurontin) capsule 100 mg 100 mg, Oral, DAILY AT NOON, First dose on Wed01/18/21 at 1200, Until Discontinued, Pharmacy: Please time with other gabapentin order, Routine Given 01/27/2021 11:12 AM EDT 100 mg Given 01/26/2021 11:36 AM EDT 100 mg Given 01/25/2021 1:19 PM EDT 100 mg gabapentin (Neurontin) capsule 200 mg 200 mg, Oral, 2 TIMES DAILY, First dose on Wed01/17/21 at 2115, Until Discontinued, Routine Given 01/27/2021 9:03 AM EDT 200 mg Given 01/26/2021 8:37 PM EDT 200 mg Given 01/26/2021 9:42 AM EDT 200 mg gabapentin (Neurontin) capsule 200 mg 200 mg, Oral, NIGHTLY PRN, Starting on Wed01/22/21 at 2119, Until Wed01/27/21 at 1509, sciatic leg pain, Routine Given 01/27/2021 4:21 AM EDT 200 mg Given 01/26/2021 5:32 AM EDT 200 mg Given 01/22/2021 11:08 PM EDT 200 mg hydroCHLOROthiazide (Hydrodiuril) tablet 25 mg 25 mg, Oral, DAILY, First dose on Wed01/18/21 at 0900, Until Discontinued, Routine Given 01/18/2021 8:36 AM EDT 25 mg HYDROmorphone (Dilaudid) (1 mg/mL) injection syringe 0.2 mg 0.2 mg, Intravenous, EVERY 4 HOURS PRN, Starting on Wed01/19/21 at 0920, Until Wed01/20/21 at 0912, Pain, mild pain (1-3), May give an additional 0.2 mg in 30 minutes once if pain not relieved., Routine Given 01/20/2021 4:44 AM EDT 0.2 mg HYDROmorphone (Dilaudid) (1 mg/mL) injection syringe 0.6 mg 0.6 mg, Intravenous, EVERY 4 HOURS PRN, Starting on Wed01/19/21 at 0920, Until Wed01/20/21 at 0912, Pain, severe pain (7-10), May give an additional 0.2 mg in 30 minutes once if pain not relieved., Routine Given 01/20/2021 4:09 AM EDT 0.6 mg Given 01/19/2021 11:42 PM EDT 0.6 mg Given 01/19/2021 7:41 PM EDT 0.6 mg HYDROmorphone (Dilaudid) tablet 2 mg 2 mg, Oral, EVERY 4 HOURS PRN, Starting on Wed01/21/21 at 1003, Until Wed01/22/21 at 0937, Pain, for moderate pain (4-6), May give an additional 2 mg once if pain not relieved in 30-60 minutes., Routine Given 01/21/2021 2:11 PM EDT 2 mg HYDROmorphone (Dilaudid) tablet 4 mg 4 mg, Oral, EVERY 4 HOURS PRN, Starting on Wed01/20/21 at 0911, Until Wed01/21/21 at 1005, Pain, for moderate pain (4-6), May give an additional 2 mg once if pain not relieved in 30-60 minutes., Routine Given 01/20/2021 4:48 PM EDT 4 mg HYDROmorphone (Dilaudid) tablet 4 mg 4 mg, Oral, EVERY 4 HOURS PRN, Starting on Wed01/21/21 at 1003, Until Wed01/22/21 at 0937, Pain, for severe pain (7-10), May give an additional 2 mg once if pain not relieved in 30-60 minutes., Routine Given 01/21/2021 11:45 PM EDT 4 mg Given 01/21/2021 9:28 PM EDT 2 mg Given 01/21/2021 7:39 PM EDT 4 mg HYDROmorphone (Dilaudid) tablet 6 mg 6 mg, Oral, EVERY 4 HOURS PRN, Starting on Wed01/20/21 at 0911, Until Wed01/21/21 at 1005, Pain, for severe pain (7-10), May give an additional 2 mg once if pain not relieved in 30-60 minutes., Routine Given 01/21/2021 5:49 AM EDT 6 mg Given 01/20/2021 11:10 PM EDT 6 mg Given 01/20/2021 9:25 AM EDT 6 mg ibuprofen (Advil;Motrin) tablet 400 mg 400 mg, Oral, EVERY 6 HOURS, First dose on Wed01/20/21 at 1215, Until Discontinued, Administer orally with milk or food to minimize GI irritation. Maximum dose of 3,200 mg from all sources in 24 hours, Routine Given 01/21/2021 5:49 AM EDT 400 mg Given 01/20/2021 5:52 PM EDT 400 mg Given 01/20/2021 11:43 AM EDT 400 mg ibuprofen (Advil;Motrin) tablet 600 mg 600 mg, Oral, ONCE, 1 dose, On 01/25/21 at 0730, Administer orally with milk or food to minimize GI irritation , STAT Given 01/25/2021 7:28 AM EDT 600 mg ibuprofen (Advil;Motrin) tablet 600 mg 600 mg, Oral, ONCE, 1 dose, On Wed01/26/21 at 1545, Administer orally with milk or food to minimize GI irritation. Maximum dose of 3,200 mg from all sources in 24 hours, Routine Given 01/26/2021 3:14 PM EDT 600 mg ibuprofen (Advil;Motrin) tablet 800 mg 800 mg, Oral, ONCE, 1 dose, On Wed01/24/21 at 0615, Administer orally with milk or food to minimize GI irritation. Maximum dose of 3,200 mg from all sources in 24 hours, Routine Given 01/24/2021 6:02 AM EDT 800 mg insulin lispro (HumaLOG;Admelog) (100 unit/mL) subcutaneous injection vial 1-4 Units 1-4 Units, Subcutaneous, EVERY 4 HOURS SCHEDULED, First dose on 01/18/21 at 0030, Until Discontinued, CORRECTION BOLUS [1-4 Units] Sensitive [...] > 240 in 2 hours., Routine Given 01/24/2021 6:44 AM EDT 1 Units Left Arm Given 01/22/2021 8:58 PM EDT 1 Units Given 01/19/2021 4:33 PM EDT 1 Units insulin lispro (HumaLOG;Admelog) (100 unit/mL) subcutaneous injection vial 1-5 Units 1-5 Units, Subcutaneous, 4 TIMES DAILY BEFORE MEALS & NIGHTLY, First dose on Wed01/17/21 at 2045, Until Discontinued, CORRECTION BOLUS [1-4 Units] Sensitive [...] > 240 in 2 hours., Routine Given 01/17/2021 8:56 PM EDT 3 Units iohexoL (Omnipaque) (350 mg/mL) injection solution 0-200 mL 0-200 mL, Intravenous, ONCE PRN, 1 dose, Starting on 01/19/21 at 1650, Until 01/19/21 at 1650, Per Protocol, Warning Vesicant/Irritant Medication , Radiology Contrast, Routine Given 01/19/2021 4:50 PM EDT 88 mLs labetaloL (Normodyne) (5 mg/mL) injection solution 10 mg 10 mg, Intravenous, EVERY 15 MIN PRN, Starting on Wed01/17/21 at 1815, Until 01/18/21 at 0022, High Blood Pressure, SBP over 160, Routine Given 01/17/2021 11:42 PM EDT 10 mg Given 01/17/2021 11:17 PM EDT 10 mg lactated Ringers 1,000 mL IV bolus Intravenous, ONCE, 1 dose, On 01/27/21 at 1000 New Bag 01/27/2021 9:21 AM EDT 1000 mL/hr lactated ringers infusion 100 mL/hr, Intravenous, CONTINUOUS, Starting on Wed01/17/21 at 1030, Until Wed01/17/21 at 2026, Endoscopy (Day of Procedure) New Bag 01/17/2021 2:24 PM EDT 100 mL/hr 100 mL/hr New Bag 01/17/2021 10:30 AM EDT 100 mL/hr 100 mL/hr lactated ringers infusion 200 mL/hr, Intravenous, CONTINUOUS, Starting on Wed01/17/21 at 2115, Until 01/18/21 at 2114 New Bag 01/18/2021 6:11 PM EDT 200 mL/hr 200 mL/hr New Bag 01/18/2021 1:21 PM EDT 200 mL/hr 200 mL/hr New Bag 01/18/2021 7:51 AM EDT 200 mL/hr 200 mL/hr lactated ringers infusion 200 mL/hr, Intravenous, CONTINUOUS, Starting on 01/18/21 at 2215, Until 01/19/21 at 1014 New Bag 01/19/2021 4:30 AM EDT 200 mL/hr 200 mL/hr New Bag 01/18/2021 11:31 PM EDT 200 mL/hr 200 mL/hr Continued Bag 01/18/2021 9:26 PM EDT 200 mL/hr 200 mL/hr lactated ringers infusion 100 mL/hr, Intravenous, CONTINUOUS, Starting on Wed01/19/21 at 0845, Until Wed01/19/21 at 2044 Rate/Dose Change 01/19/2021 1:51 PM EDT 100 mL/hr 100 mL/hr New Bag 01/19/2021 8:12 AM EDT 200 mL/hr 200 mL/hr lactated ringers infusion 150 mL/hr, Intravenous, CONTINUOUS, Starting on Wed01/20/21 at 1130, Until Tu01/21/21 at 1527 Rate/Dose Change 01/21/2021 10:20 AM EDT 150 mL/hr 150 mL/hr New Bag 01/21/2021 9:03 AM EDT 200 mL/hr 200 mL/hr New Bag 01/21/2021 3:58 AM EDT 200 mL/hr 200 mL/hr lactulose (Chronulac) (0.67 gram/mL) oral liquid 20 g 20 g, Oral, 2 TIMES DAILY PRN, Starting on Jodee 01/23/21 at 0602, Until Wed01/23/21 at 1344, Constipation, Routine Given 01/23/2021 6:34 AM EDT 20 g lactulose (Chronulac) (0.67 gram/mL) oral liquid 20 g 20 g, Oral, 2 TIMES DAILY PRN, Starting on Wed01/24/21 at 1100, Until Wed01/27/21 at 1509, Constipation, Routine lidocaine (Lidoderm) 5% topical patch 1 patch 1 patch, Transdermal, EVERY 24 HOURS, First dose on Wed01/22/21 at 0030, Until Discontinued, Apply patch for 12 hours to lower back, and then remove for 12 hours., Routine Patch Applied 01/21/2021 11:40 PM EDT 1 patch 07- Back Lower (Left) lidocaine (Lidoderm) 5% topical patch 3 patch 3 patch, Transdermal, EVERY 24 HOURS, First dose (after last modification) on Wed01/23/21 at 0030, Until Discontinued, Apply patch for 12 hours to lower back, and then remove for 12 hours., Routine Patch Applied 01/26/2021 8:46 PM EDT 3 patches 20-Other (document in comment section) Patch Applied 01/25/2021 10:28 PM EDT 3 patches 07- Back Lower (Left) Patch Applied 01/24/2021 10:57 PM EDT 3 patches 08- Back Lower (Right) lidocaine (Lidoderm) topical patch REMOVAL Transdermal, EVERY 24 HOURS, First dose (after last modification) on Wed01/23/21 at 1145, Until Discontinued, Remove lidocaine 5% patch lisinopriL (Prinivil;Zestril) tablet 10 mg 10 mg, Oral, DAILY, First dose on Wed01/18/21 at 0900, Until Discontinued, Routine Given 01/18/2021 8:36 AM EDT 10 mg lisinopriL (Prinivil;Zestril) tablet 10 mg 10 mg, Oral, DAILY, First dose on Wed01/25/21 at 1000, Until Discontinued, Please hold for HR < 60, SBP < 90. Thank you, Routine Given 01/27/2021 9:04 AM EDT 10 mg Given 01/26/2021 9:42 AM EDT 10 mg Given 01/25/2021 1:19 PM EDT 10 mg lisinopriL (Prinivil;Zestril) tablet 20 mg 20 mg, Oral, DAILY, First dose (after last modification) on 01/19/21 at 0900, Until Discontinued, Routine Given 01/21/2021 9:16 AM EDT 20 mg Given 01/20/2021 8:12 AM EDT 20 mg Given 01/19/2021 8:23 AM EDT 20 mg magnesium sulfate 1 g in dextrose 5% 100 mL infuison 1 g, Intravenous, ONCE, 1 dose, On 01/18/21 at 1300, Administer over 60 Minutes New Bag 01/18/2021 12:25 PM EDT 1 g 100 mL/hr magnesium sulfate 2 g in sterile water 50 mL infusion 2 g, Intravenous, ONCE, 1 dose, On 01/19/21 at 0845, Administer over 120 Minutes New Bag 01/19/2021 8:24 AM EDT 2 g 25 mL/hr magnesium sulfate 2 g in sterile water 50 mL infusion 2 g, Intravenous, ONCE, 1 dose, On Wed01/20/21 at 0930, Administer over 120 Minutes New Bag 01/20/2021 9:28 AM EDT 2 g 25 mL/hr magnesium sulfate 2 g in sterile water 50 mL infusion 2 g, Intravenous, ONCE, 1 dose, On 01/25/21 at 0930, Administer over 120 Minutes New Bag 01/25/2021 9:37 AM EDT 2 g 25 mL/hr melatonin tablet 10.5 mg 10.5 mg (rounded from 10 mg), Oral, NIGHTLY, First dose on Wed01/22/21 at 2100, Until Discontinued, Routine Given 01/26/2021 8:37 PM EDT 10.5 mg Given 01/25/2021 8:47 PM EDT 10.5 mg Given 01/24/2021 9:00 PM EDT 10.5 mg melatonin tablet 3 mg 3 mg, Oral, NIGHTLY, First dose on Wed01/17/21 at 2115, Until Discontinued, Routine Given 01/21/2021 8:00 PM EDT 3 mg Given 01/20/2021 8:01 PM EDT 3 mg Given 01/19/2021 8:53 PM EDT 3 mg melatonin tablet 6 mg 6 mg, Oral, ONCE, 1 dose, On Wed01/21/21 at 2145, Routine Given 01/21/2021 9:28 PM EDT 6 mg metoclopramide (Reglan) (5 mg/mL) injection 10 mg 10 mg, Intravenous, EVERY 6 HOURS PRN, Starting on Jodee 01/23/21 at 1349, Until 01/27/21 at 1509, Nausea, Vomiting, For nausea refractory to Zofran Doses greater than 10mg should be diluted into 50ml NS. Given 01/25/2021 9:43 AM EDT 10 mg Given 01/24/2021 10:43 PM EDT 10 mg L eft Arm Given 01/24/2021 5:24 AM EDT 10 mg Ri ght Arm metoprolol succinate XL (Toprol-XL) tablet 50 mg 50 mg, Oral, DAILY, First dose on 01/18/21 at 0900, Until Discontinued, DO NOT CRUSH OR OPEN Please hold for HR < 60, SBP < 90. Thank you, Routine Given 01/27/2021 9:04 AM EDT 50 mg Given 01/26/2021 9:42 AM EDT 50 mg Given 01/25/2021 8:42 AM EDT 50 mg ondansetron (pf) (Zofran) (2 mg/mL) injection 4-8 mg 4-8 mg, Intravenous, EVERY 8 HOURS PRN, Starting on Wed01/17/21 at 1841, Until 01/27/21 at 1509, Nausea, Start with 4mg and if ineffective in 30 minutes, give an additional 4mg If multiple antiemetics are ordered, give ondansetron first. Given 01/25/2021 10:21 AM EDT 4 mg Given 01/23/2021 5:23 AM EDT 4 mg Given 01/18/2021 2:52 AM EDT 4 mg ondansetron (Zofran) tablet 4-8 mg 4-8 mg, Oral, EVERY 8 HOURS PRN, Starting on Wed01/17/21 at 1841, Until 01/27/21 at 1509, Nausea, Vomiting, If multiple antiemetics are ordered, use ondansetron first. PO Preferred. If patient unable to take PO, may give IV if ordered. Start with 4mg and if ineffective in 45 minutes, give an additional 4mg. If unable to take PO, may give IV., Routine Given 01/23/2021 4:36 AM EDT 4 mg Given 01/21/2021 9:12 AM EDT 4 mg Given 01/19/2021 11:40 AM EDT 8 mg oxyCODONE (Roxicodone) tablet 5 mg 5 mg, Oral, EVERY 4 HOURS PRN, Starting on 01/18/21 at 1203, Until 01/19/21 at 0921, Pain, Routine Given 01/19/2021 2:35 AM EDT 5 mg Given 01/18/2021 7:28 PM EDT 5 mg Given 01/18/2021 12:23 PM EDT 5 mg pantoprazole EC (Protonix) tablet 40 mg 40 mg, Oral, DAILY, First dose on 01/18/21 at 0900, Until Discontinued, DO NOT CRUSH OR OPEN, Routine Given 01/27/2021 9:04 AM EDT 40 mg Given 01/26/2021 9:42 AM EDT 40 mg Given 01/25/2021 8:43 AM EDT 40 mg polyethylene glycoL (Miralax) packet 17 g 17 g, Oral, 2 TIMES DAILY, First dose on 01/20/21 at 1430, Until Discontinued, Routine Given 01/24/2021 9:35 AM EDT 17 g Given 01/23/2021 9:08 PM EDT 17 g Given 01/23/2021 9:46 AM EDT 17 g polyethylene glycoL (Miralax) packet 238 g 238 g, Oral, ONCE, 1 dose, On Wed01/24/21 at 2000, Start 2 hours afterward bisacodyl tablets. Mixed with 64 ounces of gatorade or pedialyte (do not use red or purple colored drinks). Give 8 ounces every 15-20 minutes until complete. May stop bowel prep once patient has BM, Routine Given 01/24/2021 9:01 PM EDT 238 g potassium chloride ER (K-Dur/Klor-Con) tablet 40 mEq 40 mEq, Oral, ONCE, 1 dose, On 01/20/21 at 0930, Routine Given 01/20/2021 9:26 AM EDT 40 mEq potassium chloride ER (K-Dur/Klor-Con) tablet 40 mEq 40 mEq, Oral, ONCE, 1 dose, On Wed01/21/21 at 1400, Routine Given 01/21/2021 2:04 PM EDT 40 mEq potassium chloride ER (K-Dur/Klor-Con) tablet 40 mEq 40 mEq, Oral, ONCE, 1 dose, On Wed01/26/21 at 1045, 20 mEq tablet may be dissolved in water for administration, Routine Given 01/26/2021 11:36 AM EDT 40 mEq potassium chloride ER (K-Dur/Klor-Con) tablet 40 mEq 40 mEq, Oral, ONCE, 1 dose, On Wed01/27/21 at 0830, 20 mEq tablet may be dissolved in water for administration, Routine Given 01/27/2021 9:05 AM EDT 40 mEq prochlorperazine (Compazine) (5 mg/mL) injection 5 mg 5 mg, Intravenous, ONCE PRN, 1 dose, Starting on Wed01/17/21 at 2107, Until Wed01/17/21 at 2136, Nausea, Vomiting, Routine Given 01/17/2021 9:36 PM EDT 5 mg senna (Senokot) tablet 86 mg 86 mg, Oral, ONCE, 1 dose, On Wed01/24/21 at 1015, Routine Given 01/24/2021 9:42 AM EDT 86 mg senna-docusate (Pericolace) 8.6-50 mg per tablet 1 tablet 1 tablet, Oral, DAILY, First dose on Wed01/20/21 at 1430, Until Discontinued, Routine Given 01/22/2021 8:35 AM EDT 1 tablet Given 01/21/2021 9:13 AM EDT 1 tablet Given 01/20/2021 2:17 PM EDT 1 tablet senna-docusate (Pericolace) 8.6-50 mg per tablet 2 tablet 2 tablet, Oral, 2 TIMES DAILY, First dose (after last modification) on Jodee 01/23/21 at 2100, Until Discontinued, Routine Given 01/25/2021 8:47 PM EDT 2 table ts Given 01/24/2021 9:11 PM EDT 2 tablets Given 01/24/2021 9:35 AM EDT 2 tablets simethicone (Mylicon) chewable tablet 40 mg 40 mg, Oral, EVERY 6 HOURS PRN, Starting on 01/25/21 at 1138, Until Wed01/27/21 at 1509, Cramping, Routine sodium chloride 0.9 % (flush) flush 5 mL 5 mL, Intravenous, 2 TIMES DAILY, First dose on Wed01/17/21 at 2115, Until Discontinued, Routine Given 01/27/2021 9:06 AM EDT 5 mLs Given 01/26/2021 8:39 PM EDT 5 mLs Given 01/26/2021 9:45 AM EDT 5 mLs sodium chloride 0.9% infusion 100 mL/hr, Intravenous, CONTINUOUS, Starting on 01/25/21 at 1315, Until 01/26/21 at 0954 New Bag 01/26/2021 8:42 AM EDT 100 mL/hr 100 mL/hr New Bag 01/25/2021 10:32 PM EDT 100 mL/hr 100 mL/hr Rate/Dose Verify 01/25/2021 8:00 PM EDT 100 mL/hr 100 mL/ hr traZODone (Desyrel) tablet 50 mg 50 mg, Oral, NIGHTLY, First dose on 01/26/21 at 2100, Until Discontinued, Routine Given 01/26/2021 8:39 PM EDT 50 mg documented in this encounter Active and Recently Administered Medications Times are shown in EDT. Scheduled Medication Order 01/25/2021 01/26/2021 01/27/2021 atorvastatin (Lipitor) tablet 40 mg 40 mg, Oral, EVERY EVENING, First dose on Wed01/17/21 at 2115, Until Discontinued, Routine 1624 (Given - Provider: Deidra Black) 1656 (Given - Provider: Deidra Black) DULoxetine DR (Daalta) capsule 30 mg 30 mg, Oral, DAILY, First dose on 01/18/21 at 0900, Until Discontinued, Routine 0842 (Given - Provider: Deidra Black) 0942 (Given - Provider: Deidra Black) 0904 (Given - Provider: Rebecca Johnson RN) gabapentin (Neurontin) capsule 100 mg 100 mg, Oral, DAILY AT NOON, First dose on 01/18/21 at 1200, Until Discontinued, Pharmacy: Please time with other gabapentin order, Routine 1319 (Given - Provider: Deidra Black) 1136 (Given - Provider: Deidra Black) 1112 (Given - Provider: Cindyjordan Cervantes RN) gabapentin (Neurontin) capsule 200 mg 200 mg, Oral, 2 TIMES DAILY, First dose on Wed01/17/21 at 2115, Until Discontinued, Routine 0842 (Given - Provider: Deidra Black)2047 (Given - Provider: Shayy Ashley RN) 09 (Given - Provider: Deidra Black)2036 (Given - Provider: Brittny Hallman RN) 0903 (Given - Provider: Rebecca Johnson RN) ibuprofen (Advil;Motrin) tablet 600 mg (COMPLETED) 600 mg, Oral, ONCE, 1 dose, On 01/25/21 at 0730, Administer orally with milk or food to minimize GI irritation , STAT 0728 (Given - Provider: Shayy Ashley RN) ibuprofen (Advil;Motrin) tablet 600 mg (COMPLETED) 600 mg, Oral, ONCE, 1 dose, On 01/26/21 at 1545, Administer orally with milk or food to minimize GI irritation. Maximum dose of 3,200 mg from all sources in 24 hours, Routine 1514 (Given - Provider: Deidra Black) lactated Ringers 1,000 mL IV bolus (COMPLETED) Intravenous, ONCE, 1 dose, On 01/27/21 at 1000 0921 (New Bag - Provider: Cindy Cervantes RN) lidocaine (Lidoderm) 5% topical patch 3 patch(Linked Group 1) 3 patch, Transdermal, EVERY 24 HOURS, First dose (after last modification) on [facility] 01/23/21 at 0030, Until Discontinued, Apply patch for 12 hours to lower back, and then remove for 12 hours., Routine 2227 (Patch Applied - Provider: Shayy Ashley RN) 2045 (Patch Applied - Provider: Brittny Hallman RN - Comment: lower back) lidocaine (Lidoderm) topical patch REMOVAL(Linked Group 1) Transdermal, EVERY 24 HOURS, First dose (after last modification) on [facility] 01/23/21 at 1145, Until Discontinued, Remove lidocaine 5% patch 1100 (Patch Removed - Provider: Deidra Black) 1100 (Patch Removed - Provider: Deidra Black) 1112 (Patch Removed - Provider: Cindy Cervantes RN) lisinopriL (Prinivil;Zestril) tablet 10 mg 10 mg, Oral, DAILY, First dose on 01/25/21 at 1000, Until Discontinued, Please hold for HR < 60, SBP < 90. Thank you, Routine 1319 (Given - Provider: Deidra Black) 0942 (Given - Provider: Deidra Black) 0904 (Given - Provider: Rebecca Johnson, RODERICK) magnesium sulfate 2 g in sterile water 50 mL infusion (COMPLETED) 2 g, Intravenous, ONCE, 1 dose, On 01/25/21 at 0930, Administer over 120 Minutes 0937 (New Bag - Provider: Deidra Black)1137 (Stopped - Provider: Deidra Black) melatonin tablet 10.5 mg 10.5 mg (rounded from 10 mg), Oral, NIGHTLY, First dose on Wed01/22/21 at 2100, Until Discontinued, Routine 2046 (Given - Provider: Shayy Ashley, RN) 2036 (Given - Provider: Brittny Hallman, RODERICK) metoprolol succinate XL (Toprol-XL) tablet 50 mg 50 mg, Oral, DAILY, First dose on 01/18/21 at 0900, Until Discontinued, DO NOT CRUSH OR OPEN Please hold for HR < 60, SBP < 90. Thank you, Routine 0842 (Given - Provider: Deidra Black) 0942 (Given - Provider: Deidra Black) 0904 (Given - Provider: Rebecca Johnson, RODERICK) pantoprazole EC (Protonix) tablet 40 mg 40 mg, Oral, DAILY, First dose on 01/18/21 at 0900, Until Discontinued, DO NOT CRUSH OR OPEN, Routine 0843 (Given - Provider: Deidra Black) 0942 (Given - Provider: Deidra Black) 0904 (Given - Provider: Rebecca Johnson, RODERICK) polyethylene glycoL (Miralax) packet 17 g 17 g, Oral, 2 TIMES DAILY, First dose on 01/20/21 at 1430, Until Discontinued, Routine 0900 (Not Given - Provider: Deidra Black - Reason: Patient/family refused)2100 (Not Given - Provider: Shayy Ashley RN - Reason: Patient/family refused) 0900 (Not Given - Provider: Deidra Black - Reason: Patient/family refused)2100 (Not Given - Provider: Brittny Hallman RN - Reason: Patient/family refused) 0900 (Not Given - Provider: Rebecca Johnson RN - Reason: Patient/family refused) potassium chloride ER (K-Dur/Klor-Con) tablet 40 mEq (COMPLETED) 40 mEq, Oral, ONCE, 1 dose, On 01/26/21 at 1045, 20 mEq tablet may be dissolved in water for administration, Routine 1136 (Given - Provider: Deidra Black) potassium chloride ER (K-Dur/Klor-Con) tablet 40 mEq (COMPLETED) 40 mEq, Oral, ONCE, 1 dose, On 01/27/21 at 0830, 20 mEq tablet may be dissolved in water for administration, Routine 09 (Given - Provider: Rebecca Johnson RN) senna-docusate (Pericolace) 8.6-50 mg per tablet 2 tablet 2 tablet, Oral, 2 TIMES DAILY, First dose (after last modification) on Jodee 01/23/21 at 2100, Until Discontinued, Routine 0900 (Not Given - Provider: Deidra Black - Reason: Patient/family refused)2046 (Given - Provider: Shayy Ashley RN) 0900 (Not Given - Provider: Deidra Black - Reason: Patient/family refused)2099 (Not Given - Provider: Brittny Hallman RN - Reason: Patient/family refused) 0900 (Not Given - Provider: Rebecca Johnson RN - Reason: Patient/family refused) sodium chloride 0.9 % (flush) flush 5 mL 5 mL, Intravenous, 2 TIMES DAILY, First dose on Wed01/17/21 at 2115, Until Discontinued, Routine 0937 (Given - Provider: Deidra Black)2104 (Given - Provider: Shayy Ashley RN) 0945 (Given - Provider: Deidra Black)2038 (Given - Provider: Brittny Hallman, RODERICK) 09 (Given - Provider: Rebecca Johnson RN) traZODone (Desyrel) tablet 50 mg 50 mg, Oral, NIGHTLY, First dose on Wed01/26/21 at 2100, Until Discontinued, Routine 2038 (Given - Provider: Brittny Hallman RN) Continuous Medication Order 01/25/2021 01/26/2021 01/27/2021 sodium chloride 0.9% infusion (CANCELED) 100 mL/hr, Intravenous, CONTINUOUS, Starting on 01/25/21 at 1315, Until 01/26/21 at 0954 1310 (New Bag - Provider: Deidra Black)2000 (Rate/Dose Verify - Provider: Shayy Ashley RN)2232 (New Bag - Provider: Shayy Ashley RN) 0842 (New Bag - Provider: Nelda Ferguson RN)1100 (Stopped - Provider: Deidra Black) PRN Medication Order 01/25/2021 01/26/2021 01/27/2021 acetaminophen (Tylenol) tablet 650 mg 650 mg, Oral, EVERY 4 HOURS PRN, Starting on 01/22/21 at 0945, Until 01/27/21 at 1509, Pain, Administer for temperature greater than or equal to 38.2 degrees celsius. Maximum daily dose of acetaminophen from all sources not to exceed 4,000 mg. When ordered for pain, acetaminophen should be given even when other ordered pain medications are indicated., Routine 0338 (Given - Provider: Shayy Ashley RN) 0502 (Given - Provider: Shayy Ashley RN)1136 (Given - Provider: Deidra Black)1656 (Given - Provider: Deidra Black) 0903 (Given - Provider: Rebecca Johnson RN) calcium carbonate (Tums) chewable tablet 500-1,000 mg 500-1,000 mg, Oral, EVERY 4 HOURS PRN, Starting on 01/25/21 at 1138, Until 01/27/21 at 1509, Heartburn, Give 500 mg (1 tablet) for mild to moderate heartburn. Give 1,000 mg (2 tablets) for severe heartburn., Routine camphor-methyl salicyl-menthol (Bengay Ultra Strength) 4-30-10 % cream Topical (Top), NIGHTLY PRN, for foot pain, Starting on 01/26/21 at 2204, Until 01/27/21 at 1509, Application Site: bilateral feet 2229 (Given - Provider: Brittny Hallman RN - Comment: bilateral feet) gabapentin (Neurontin) capsule 200 mg 200 mg, Oral, NIGHTLY PRN, Starting on Wed01/22/21 at 2119, Until Wed01/27/21 at 1509, sciatic leg pain, Routine 0532 (Given - Provider: Shayy Ashley RN) 0421 (Given - Provider: Brittny Hallman RN) lactulose (Chronulac) (0.67 gram/mL) oral liquid 20 g 20 g, Oral, 2 TIMES DAILY PRN, Starting on Wed01/24/21 at 1100, Until Wed01/27/21 at 1509, Constipation, Routine lidocaine (Xylocaine) 1% (10 mg/mL) injection 3 mg 3 mg (0.3 mL), Subcutaneous, ONCE PRN, 1 dose, Starting on Wed01/17/21 at 2027, Until Wed01/27/21 at 1509, for discomfort with PIV insertion, Routine metoclopramide (Reglan) (5 mg/mL) injection 10 mg 10 mg, Intravenous, EVERY 6 HOURS PRN, Starting on Wed01/23/21 at 1349, Until Wed01/27/21 at 1509, Nausea, Vomiting, For nausea refractory to Zofran Doses greater than 10mg should be diluted into 50ml NS. 0943 (Given - Provider: Deidra Black) ondansetron (pf) (Zofran) (2 mg/mL) injection 4-8 mg(Linked Group 2) 4-8 mg, Intravenous, EVERY 8 HOURS PRN, Starting on Wed01/17/21 at 1841, Until Wed01/27/21 at 1509, Nausea, Start with 4mg and if ineffective in 30 minutes, give an additional 4mg If multiple antiemetics are ordered, give ondansetron first. 1021 (Given - Provider: Deidra Black) ondansetron (Zofran) tablet 4-8 mg(Linked Group 2) 4-8 mg, Oral, EVERY 8 HOURS PRN, Starting on Wed01/17/21 at 1841, Until Wed01/27/21 at 1509, Nausea, Vomiting, If multiple antiemetics are ordered, use ondansetron first. PO Preferred. If patient unable to take PO, may give IV if ordered. Start with 4mg and if ineffective in 45 minutes, give an additional 4mg. If unable to take PO, may give IV., Routine 1021 (See Alternative - Provider: Deidra Black) simethicone (Mylicon) chewable tablet 40 mg 40 mg, Oral, EVERY 6 HOURS PRN, Starting on 01/25/21 at 1138, Until 01/27/21 at 1509, Cramping, Routine sodium chloride 0.9 % (flush) flush 5-20 mL 5-20 mL, Intravenous, EVERY 1 MIN PRN, Starting on Wed01/17/21 at 2027, Until Wed01/27/21 at 1509, flush, Flush pertains to all indwelling lines. Flush per protocol found in the job aid using the link provided on this medication record., Routine Linked Groups Order Group 1: lidocaine (Lidoderm) 5% topical patch 3 patchJump to med 3 patch, Transdermal, EVERY 24 HOURS, First dose (after last modification) on Jodee 01/23/21 at 0030, Until Discontinued, Apply patch for 12 hours to lower back, and then remove for 12 hours., Routine And lidocaine (Lidoderm) topical patch REMOVALJump to med Transdermal, EVERY 24 HOURS, First dose (after last modification) on Jodee 01/23/21 at 1145, Until Discontinued, Remove lidocaine 5% patch Group 2: ondansetron (Zofran) tablet 4-8 mgJump to med 4-8 mg, Oral, EVERY 8 HOURS PRN, Starting on Wed01/17/21 at 1841, Until Wed01/27/21 at 1509, Nausea, Vomiting, If multiple antiemetics are ordered, use ondansetron first. PO Preferred. If patient unable to take PO, may give IV if ordered. Start with 4mg and if ineffective in 45 minutes, give an additional 4mg. If unable to take PO, may give IV., Routine Or ondansetron (pf) (Zofran) (2 mg/mL) injection 4-8 mgJump to med 4-8 mg, Intravenous, EVERY 8 HOURS PRN, Starting on Wed01/17/21 at 1841, Until Wed01/27/21 at 1509, Nausea, Start with 4mg and if ineffective in 30 minutes, give an additional 4mg If multiple antiemetics are ordered, give ondansetron first. documented in this encounter Care Teams Sewer Head Relationship Specialty Start Date End Date Asia Gil DO [address] [place] [address] PCP - General Family Medicine 07/09/20 documented as of this encounter
--- OUTSIDE RECORDS SUMMARY | 2024-05-02 12:12 | XMS_ITS | Encounter Summary ---
Author Organization [facility] [place] [address] Care Team Providers Care Termite Helper Name Role Phone Asia Gil DO Primary Care Provider +1- [phone] Encounter Details Date Type Department Care Team (Late st Contact Info) Description 01/28/2021 Telephone Gastroenterology at [facility] [place] [phone] Eliel Leigh MD [facility] [place] [address] Social History Tobacco Use Types Packs/Day Years [...] encounter Miscellaneous Notes * Telephone Encounter - Pamela Dunlap RN - 01/28/2021 9:43 AM EDT Pt and daughter were on the line to report that patient had an ERCP with Dr. Leigh on 01/17 and has had a complicated course since then. She was discharged yesterday and has had a 15 pound weight gain since. Her PCP was notified about the acute bloating and referred her back to Dr. Leigh. They are over an hour away and would like to be advised whether to come to the hospital or their local ED. Please call and advise. documented in this encounter Plan of Treatment Upcoming Encounters Date Type Department Care Team (Latest Contact Info) Description 05/08/2024 10:30 AM EDT Hospital Encounter Pain Management [place] [phone] Bk Contreras MD [facility] [place] [address] 05/08/2024 10:30 AM EDT - 05/08/2024 11:00 AM EDT Surgery Pain Management [place] [phone] Bk Contreras MD [facility] [place] [address] INJECTION, ANESTHETIC AGENT AND/OR STEROID, TRANSFORAMINAL EPIDURAL, LUMBAR OR SACRAL, SINGLE LEVEL (WRVU 1.9) 05/12/2024 1:00 PM EDT Office Visit Cardiology at [place] [phone] Sadi Styles MD [facility] [place] [address] 05/29/2024 10:15 AM EDT TH Visit (TeleHealth) [facility] [place] [address] Natalee Sanchez APRN [facility] [place] [address] Scheduled Procedures Name Priority Associated Diagnoses Date/Ti me INJECTION, ANESTHETIC AGENT AND/OR STEROID, TRANSFORAMINAL EPIDURAL, LUMBAR OR SACRAL, SINGLE LEVEL (WRVU 1.9) Left lumbar radiculopathy 05/08/2024 10:30 AM EDT documented as of this encounter Visit Diagnoses Not on filedocumented in this encounter Care Teams Termite Helper Relationship Specialty Start Date End Date Asia Gil DO [address] [place] [address] PCP - General Family Medicine 07/09/20 documented as of this encounter
--- OUTSIDE RECORDS SUMMARY | 2024-05-02 12:12 | XMS_ITS | Encounter Summary ---
[place] [address] Care Team Providers Care Coal Sampler Name Role Phone Asia Gil DO Primary Care Provider +1- [phone] Reason for Visit * Auth/Cert Specialty Diagnoses / Procedures Referred By Contac t Referred To Contact Diagnoses Chronic RUQ/R flank pain. Hx of CCY. Found to have stone in cystic duct v infundibulum on recent RUQ U/S. Procedures PRO ERCP,DIAGNOSTIC ERCP Referral ID Status Reason Start Date Expiration Date Visits Re quested Visits Authorized [id number] 1 1 Encounter Details Date Type Department Care Team (Late st Contact Info) Description 01/17/2021 11:40 AM EDT Ancillary [place] [phone] Social History Tobacco Use Types Packs/Day Years [...] 10:30 AM EDT Hospital [place] [phone] Bk Contreras MD [facility] [place] [address] 05/08/2024 10:30 AM EDT - 05/08/2024 11:00 AM EDT Surgery Pain Management [place] [phone] Bk Contreras MD [facility] [place] [address] INJECTION, ANESTHETIC AGENT AND/OR STEROID, TRANSFORAMINAL EPIDURAL, LUMBAR OR SACRAL, SINGLE LEVEL (WRVU 1.9) 05/12/2024 1:00 PM EDT Office Visit Cardiology at [address] Sadi Styles MD [facility] [place] [address] 05/29/2024 10:15 AM EDT TH Visit (TeleHealth) [place] [address] Natalee Sanchez APRN [facility] [place] [address] Scheduled Procedures Name Priority Associated Diagnoses Date/Ti me INJECTION, ANESTHETIC AGENT AND/OR STEROID, TRANSFORAMINAL EPIDURAL, LUMBAR OR SACRAL, SINGLE LEVEL (WRVU 1.9) Left lumbar radiculopathy 05/08/2024 10:30 AM EDT documented as of this encounter Procedures Procedure Name Priority Date/Time Associated Diagnosis Comments XR ERCP Routine 01/17/2021 6:53 PM EDT documented in this encounter Results * XR ERCP (01/17/2021 6:53 PM EDT) Narrative [facility] - 01/17/2021 6:54 PM EDT See PACS for result report. Eliel Leigh MD [facility] FILM LIBRARY ORD ERABLES [facility] Organization Address City/State/ZIP Co de Phone Number [place], [place] documented in this encounter Visit Diagnoses Not on filedocumented in this encounter Care Teams Coal Sampler Relationship Specialty Start Date End Date Asia Gil DO [address] [place] [address] PCP - General Family Medicine 07/09/20 documented as of this encounter
--- OUTSIDE RECORDS SUMMARY | 2024-05-02 12:13 | XMS_ITS | Encounter Summary ---
[place] [address] Care Team Providers Care Shirt Ironer Name Role Phone Asia Gil DO Primary Care Provider +1- [phone] Encounter Details Date Type Department Care Team (Late st Contact Info) Description 12/27/2020 Telephone [place] [phone] Laci Epps MD [facility] [place] [address] Social History Tobacco Use Types Packs/Day Years [...] * Telephone Encounter - Laci Epps - 12/27/2020 1:40 PM EDT Images from the original note were not included. DIVISION OF GASTROENTEROLOGY & [facility]PATOLOGY [facility] CALL Name: Toyin Coley Date: 12/27/2020 Time: 2:23 PM Referring Location: [facility] Referring Provider: Dr. 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 Lastseen by GI here 2011. Has been seeing Dr. Sawant re: years-long hx of RUQ and R flank pain despitehx of CCY. Labs unrevealing. Patient underwent recent EGD and colonoscopy (12/25/20) looking for a source of pain,now s/p multiple polyps resected. Patient was then referred for RUQ U/S noting a retained stone in a cystic duct remnant v infundibulum w/ surrounding wall thickening. Dr. Sawant called to ask whether this could be a plausible culprit of abdominal pain, and whether there may be an endoscopic approach to remove this cystic duct v infundibulum stone. I said it is conceivable this could be the cause of pain. I reviewed the case with Dr. Dowling. He said he would be willing to attempt an ERCP +/- cholangioscopy for retrieval. Order placed. This is not an official consult, as my recommendations are limited by my inability to interview andexamine the patient as well as personally review the medical record, imaging, and laboratory findings. Laci Epps MD PGY-4, Gastroenterology documented in this encounter Plan of Treatment Upcoming Encounters Date Type Department Care Team (Latest Contact Info) Description 05/08/2024 10:30 AM EDT Hospital Encounter [place] [address] Bk Contreras MD [facility] [place] [address] 05/08/2024 10:30 AM EDT - 05/08/2024 11:00 AM EDT Surgery [place] [address] Bk Contreras MD [facility] [place] [address] INJECTION, ANESTHETIC AGENT AND/OR STEROID, TRANSFORAMINAL EPIDURAL, LUMBAR OR SACRAL, SINGLE LEVEL (WRVU 1.9) 05/12/2024 1:00 PM EDT Office Visit Cardiology at [address] [phone] Sadi Styles MD [facility] [place] [address] 05/29/2024 10:15 AM EDT TH Visit (TeleHealth) [facility] [place] [phone] Natalee Sanchez APRN [facility] [place] [address] Scheduled Orders Name Type Priority Associated Diagnoses Orde r Schedule ENDOSCOPY CASE REQUEST: ERCP Procedures Routine Cystic duct calculus RUQ pain Ordered: 12/27/2020 Scheduled Procedures Name Priority Associated Diagnoses Date/Ti me INJECTION, ANESTHETIC AGENT AND/OR STEROID, TRANSFORAMINAL EPIDURAL, LUMBAR OR SACRAL, SINGLE LEVEL (WRVU 1.9) Left lumbar radiculopathy 05/08/2024 10:30 AM EDT documented as of this encounter Visit Diagnoses Diagnosis Cystic duct calculus Calculus of gallbladder without mention of cholecystitis or obstruction RUQ pain Abdominal pain, right upper quadrant Left lumbar radiculopathy Thoracic or lumbosacral neuritis or radiculitis, unspecified documented in this encounter Care Teams Shirt Ironer Relationship Specialty Start Date End Date Asia Gil DO [address] [place] [address] PCP - General Family Medicine 07/09/20 documented as of this encounter
--- OUTSIDE RECORDS SUMMARY | 2024-05-02 12:13 | XMS_ITS | Encounter Summary ---
[place] [address] Care Team Providers Care Subway Train Driver Name Role Phone Asia Gil DO Primary Care Provider +1- [phone] Encounter Details Date Type Department Care Team (Late st Contact Info) Description 01/06/2021 Telephone [place] [phone] Janae Vera Social History Tobacco Use Types Packs/Day Years [...] encounter Miscellaneous Notes * Telephone Encounter - Janae Vera - 01/06/2021 2:47 PM EDT Toyin Coley [id number] Diagnosis/Indication: gallstone 1. Have you ever had a/an ERCP before? No If yes, did you have any problems with the procedure? No What type of sedation was used: None 2. Do you take any blood thinners or have you been diagnosed with a bleeding disorder that increases your risk of bleeding with procedures? No 3. Do you have a Pacemaker or Defibrillator device? No 4. Are you a diabetic? Yes: Controlled by diet or medication? Diet 5. Do you have any Allergies to Eggs, Latex or Medications? Yes: see edh 6. Do you take any Oral Iron Supplements (Including multi-vitamins)? No 7. Do you have a history of three or more abdominal surgeries? No 8. Have you had a problem with sedation or anesthesia? No 9. Do you use a c-pap machine or oxygen tank? Neither 10. Do you take prescription narcotic pain medications, including suboxone or methodone? No 11. Do you have a preference regarding the gender of your provider? No Preference 12. Is there any other information you would like to us to note for the provider and nursing team who will perform your case? No 13. Say to patient: You must have a responsible green party who will drive you to your procedure, stay [place] for the entire duration of your procedure, and drive you home from your procedure? *Please Verify the height and weight, and adjust if height and/or weight have changed* Estimated body mass index is 28.98 kg/m?? as calculated from the following: Height as of 06/07/20: 160 cm (5' 3). Weight as of 06/07/20: 74.2 kg (163 lb 9.6 oz). Age:65 y.o. documented in this encounter Plan of Treatment Upcoming Encounters Date Type Department Care Team (Latest Contact Info) Description 05/08/2024 10:30 AM EDT Hospital Encounter [place] [address] Bk Contreras MD [facility] [address] 05/08/2024 10:30 AM EDT - 05/08/2024 11:00 AM EDT [place] [phone] Bk Contreras MD [facility] [place] [address] INJECTION, ANESTHETIC AGENT AND/OR STEROID, TRANSFORAMINAL EPIDURAL, LUMBAR OR SACRAL, SINGLE LEVEL (WRVU 1.9) 05/12/2024 1:00 PM EDT Office Visit Cardiology at [address] [phone] Sadi Styles MD [facility] [place] [address] 05/29/2024 10:15 AM EDT TH Visit (TeleHealth) [facility] [place] [phone] Natalee Sanchez APRN [facility] [place] [address] Scheduled Procedures Name Priority Associated Diagnoses Date/Ti me INJECTION, ANESTHETIC AGENT AND/OR STEROID, TRANSFORAMINAL EPIDURAL, LUMBAR OR SACRAL, SINGLE LEVEL (WRVU 1.9) Left lumbar radiculopathy 05/08/2024 10:30 AM EDT documented as of this encounter Visit Diagnoses Not on filedocumented in this encounter Care Teams Subway Train Driver Relationship Specialty Start Date End Date Asia Gil DO [address] [place] [address] PCP - General Family Medicine 07/09/20 documented as of this encounter
--- OUTSIDE RECORDS SUMMARY | 2024-05-02 12:13 | XMS_ITS | Encounter Summary ---
Author Organization [facility] Address [facility] [place] [address] Care Team Providers Care Environmental Monitoring Specialist Name Role Phone Asia Gil DO Primary Care Provider [phone] Reason for Visit * Auth/Cert Specialty Diagnoses / Procedures Referred By Contjaymie t Referred To Contact Diagnoses Chronic RUQ/R flank pain. Hx of CCY. Found to have stone in cystic duct v infundibulum on recent RUQ U/S. Procedures PRO ERCP,DIAGNOSTIC ERCP Referral ID Status Reason Start Date Expiration Date Visits Re quested Visits Authorized [id number] 1 1 Encounter Details Date Type Department Care Team (Late st Contact Info) Description 01/17/2021 10:30 AM EDT - 01/17/2021 12:00 PM EDT Surgery Gastroenterology at [facility] [place] [address] Eliel Leigh MD [facility] [place] [address] ERCP (WRVU 5.85) Social History Tobacco Use Types Packs/Day Years [...] Sign Reading Time Taken Comments Blood Pressure 143/96 01/17/2021 10:04 AM EDT Pulse 67 01/17/2021 10:04 AM EDT Temperature 36.4 ??C (97.6 ??F) 01/17/2021 10:04 AM E DT Respiratory Rate - - Oxygen Saturation 100% 01/17/2021 10:04 AM EDT Inhaled Oxygen Concentration - - Weight 76.7 kg (169 lb) 01/17/2021 10:04 AM EDT Height - - Body Mass Index 30.42 01/17/2021 10:04 AM EDT documented in this encounter Discharge Summaries * Lisa Valles MD - 01/27/2021 12:32 PM EDT Images from the original note were not included. Discharge Summary Patient Name: Toyin Coley Patient Age: 65 y.o. Language: Tuvaluan Race: White Ethnicity: Not nor Admit date: [...] please contact your inpatient physician through the [facility] Community Planning Technician . Issues afterhours and on weekends will [...] Tobacco Never Used Tobacco Comment uses [facility] Instructions Given to Patient at Discharge: Patient [...] 11:15AM Asia Gil DO , PCP [address] [facility] [address] Your Inpatient Doctor(s) at [facility] MD Lisa Girard MD Aditya Kulkarni, MD Your Primary Care Provider: Asia Gil DO [address] [facility] [address] For questions regarding this document or issues relating to this hospitalization on the Medical Service, please contact your inpatient physician through the [facility] Community Planning Technician . Issues afterhours and on weekends will [...] the day after the procedure, use an ryef-uqk-kvyxlfs spray to numb your throat. Sucking on [...] occurs, please contact your Doctor. Please call [phone] before 8pm Mon-Fri with problems, questions or concerns. If you call after 8pm or on weekends, call the Hospital at [phone] and ask to speak to the Furnace Operator And Tender stonework supervisor and the wire drawing machine operator will contact that person for you. When should you call for help? Call [phone] anytime you think you may need emergency [...] problems, like Where can you learn more? myD-H View your After Visit Summary and more online at [email or web address] If you would like to provide feedback about your hospital experience, please call the Office of Patient and Family Relations at . If you have received this After Visit Summary in error, please immediately return it in person to the department, or notify the [facility] Privacy Office by calling toll free at between the hours of 8AM and 5PM to arrange for our retrieval of the documents at no cost to you. Content Version: 12.2 ?? [phone] [employer]. Care instructions adapted under license by [employer]. If you have questions about a medical condition or this instruction, always ask your healthcare professional. [employer] disclaims any warranty or liability for your use of this information. YOU ARE SCHEDULED FOR A FOLLOW UP APPOINTMENT WITH YOUR PRIMARY CARE PROVIDER'S OFFICE ON 01/31/2021T 11:15AM WITH DR AU Future Appointments and Orders Future Orders Complete By Expires Basic Metabolic Panel (non-fasting) [LAB15 Custom] 02/03/2021 (Approximate) 02/26/2021 Process Instructions: Scheduling Instructions: Comments: Questions: CBC (with Diff) [BAD207 Custom] 02/03/2021 (Approximate) 02/26/2021 Process Instructions: Scheduling [...] the day after the procedure, use an yewu-oza-iectord spray to numb your throat. Sucking on [...] occurs, please contact your Doctor. Please call [phone] before 8pm Mon-Fri with problems, questions or concerns. If you call after 8pm or on weekends, call the Hospital at [phone] and ask to speak to the Furnace Operator And Tender stonework supervisor and the wire drawing machine operator will contact that person for you. [...] problems, like Where can you learn more? [facility] View your After Visit Summary and more online at [email or web address] If you would like to provide feedback about your hospital experience, please call the Office of Patient and Family Relations at . If you have received this After Visit Summary in error, please immediately return it in person to the department, or notify the [facility] Privacy Office by calling toll free at between the hours of 8AM and 5PM to arrange for our retrieval of the documents at no cost to you. Content Version: 12.2 ?? [phone] [employer]. Care instructions adapted under license by [employer]. If you have questions about a medical condition or this instruction, always ask your healthcare professional. [employer] disclaims any warranty or liability for your [...] 11:15AM Asia Gil DO , PCP [address] [facility] [address] Your Inpatient Doctor(s) at [facility] MD Lisa Girard MD Aditya Kulkarni, MD Your Primary Care Provider: Asia Gil DO [address] [facility] [address] For questions regarding this document or issues relating to this hospitalization on the Medical Service, please contact your inpatient physician through the [facility] Community Planning Technician . Issues afterhours and on weekends will [...] of this encounter: 76.7 kg (169 lb). [place] Body Weight: 53.6-59 kg Usual Body Weight:see [...] good comprehension verbalized, Protein-calorie Malnutrition: Not identified (Elvia JPEN J Parenteral Enteral Nutr. 2012 February; 36(3): 273-83) Discharge planning underway [address] Pager #:[phone] * Maxim Motley MD - 01/27/2021 1:08 PM EDT Hospital [...] spent >30 minutes (Day of Discharge Code 82851) involved in the final examination of the patient, discussion of the hospital stay, instructions for continuing care to all relevant caregivers, and preparation of discharge records, prescriptions and referral forms. Plans ? Discharge to home ? Follow-up scheduled with PCP ? Please see the Discharge Summary for complete details of any medication changes and additional plans. * Cindy Cervantes, RN - 01/27/2021 12:30 PM EDT Pt [...] without needs Agency Referrals: None indicated Transportation: [facility] phoned to speak with Toyin who states that her son in law left his home in [facility] at around 10:30am. He plans to arrive at the [facility] entrance to pick her up and transport her home in private vehicle at around noon. He is taking her to her 2nd COVID 19 vaccine this afternoon in [facility], scheduled for 1430 hours. Toyin states that [...] indicated Patient is insured through: Primary Insurance: AAR MANAGED MEDICARE Payor: AAR MANAGED MEDICARE / Plan: AARP RPPO MANAGED MEDICARE COMPLETE / Product Type: *No Product type* / Secondary Insurance: [facility] Prescription Coverage: See above Preferred Pharmacy: See below [facility] [address] [place], [place] - [address] [facility] [address] [facility] [address] [id number] - [place], [place] - [address] [place] [address] [address] [facility] [address] [facility] [address] This plan was formulated with input from patient, Toyin Coley, and team. All are in agreement with [...] will feel better. Zohra Weaver RN Case Broach Operator of Care Management Pager: [phone] * Lisa Valles MD - 01/26/2021 7:40 [...] Tachycardic rate, regular rhythm Labs: Recent Labs 01/26/213 01/25/21 0435 01/24/21 0459 WBC 21.8* 15.2* 13.8* HGB 10.3* 9.9* 10.4* PLATELET 135* 135* 145 Recent Labs 01/26/213 01/25/21 0435 01/24/21 0459 NA 135 132* 133* K 3.1* 3.4* 4.1 CL 101 96* 95* CO2 23 25 28 BUN 16 19* 23* CREATININE 1.05 1.25* 1.32* Recent Labs 01/26/213 01/25/21 0435 01/24/21 0459 CALCIUM 8.8 8.6 9.0 MAGNESIUM 0.98 0.66* 0.95 No results for input(s): AST, ALT, ALKPHOS, BILITOT, BILIDIR in the last 168 hours. No results for input(s): TROPONINT, CK in the last 168 hours. No results for input(s): PHART, YMA7YUU, PO2ART, UAT5UTM in the last 168 hours. Inpatient Medications: [...] her second COVID vaccine tomorrow afternoon at [facility]. DVT Prophylaxis SCDs PCP Asia Gil, DO Attestation IPI Certification I certify that I am a D-H credentialed attending provider with admitting privileges and that the patient meets or has met medical necessity to require an inpatient IPI level of care meeting a minimumof two midnights or is on the [facility] inpatient only procedure list (status C) due [...] consulted in the interim. JAZMIN Baez Pager: [phone] * Freddie Montes MD - 01/25/2021 12:15 [...] Tachycardic rate, regular rhythm Labs: Recent Labs 01/25/2143401/24/2145801/23/21348 WBC 15.2* 13.8* 13.9* HGB 9.9* 10.4* 10.5* PLATELET 135* 145 125* Recent Labs 01/25/2143401/24/2145801/23/21348 NA 132* 133* 130* K 3.4* 4.1 4.2 CL 96* 95* 96* CO2 25 28 24 BUN 19* 23* 31* CREATININE 1.25* 1.32* 1.53* Recent Labs 01/25/2143401/24/2145801/23/21348 CALCIUM 8.6 9.0 8.9 MAGNESIUM 0.66* 0.95 0.84 No results for input(s): AST, ALT, ALKPHOS, BILITOT, BILIDIR in the last 168 hours. No results for input(s): TROPONINT, CK in the last 168 hours. No results for input(s): PHART, VXM7UXJ, PO2ART, ZDP4MPF in the last 168 hours. Inpatient Medications: [...] MD Simon PGY - 3, Internal Medicine 01/25/2021 Associated [...] pending course. DVT Prophylaxis SCDs PCP Asia Gil DO Attestation IPI Certification I certify that I am a D-H credentialed attending provider with admitting privileges and that the patient meets or has met medical necessity to require an inpatient IPI level of care meeting a minimumof two midnights or is on the [facility] inpatient only procedure list (status C) due [...] patient to finish prep; 0640 Up to [facility] for stool; c/o back pain 06/20; physician [...] AM EDT OFFICE OF CARE MANAGEMENT ?? Home Economist Consumer Service Follow-up Note ?? S/O:?Discussed plan of care [...] 01/25/21 without needs to home. ?? P: Home Economist Consumer Service to follow with team and family to assist with discharge needs when patient ready for discharge. ?? An Important Message From Medicare about Your Rights letter reviewed with pt, Toyin Coley, and she provided verbal acknowledgment and was provided copy. Mary Weaver RN Pager: [phone] * Lisa Valles MD - 01/24/2021 7:44 [...] comfortably, no difficulty breathing Labs: Recent Labs 01/24/2145801/23/2134801/22/21 032 WBC 13.8* 13.9* 13.1* HGB 10.4* 10.5* 9.6* PLATELET 145 125* 114* Recent Labs 01/24/2145801/23/2134801/22/21321 NA 133* 130* 130* K 4.1 4.2 4.2 CL 95* 96* 96* CO2 28 24 27 BUN 23* 31* 36* CREATININE 1.32* 1.53* 2.11* Recent Labs 01/24/2145801/23/2134801/22/2132101/17/212050 CALCIUM 9.0 8.9 8.6 10.2 10.2 MAGNESIUM 0.95 0.84 0.94 0.63* PHOS -- -- -- 3.5 Recent Labs 01/17/212050 AST 224* ALT 152* ALKPHOS 111* BILITOT 0.6 BILIDIR 0.3 No results for input(s): TROPONINT, CK in the last 168 hours. No results for input(s): PHART, OYT8CCB, PO2ART, RRR9HSY in the last 168 hours. Inpatient Medications: [...] of two midnights or is on the [facility] inpatient only procedure list (status C) due [...] Overview: Added automatically from request for surgery [id number] RUQ pain Overview: Added automatically from request for surgery [id number] Travis Callahan MD 01/24/2021 7:30 PM * [...] pain; physician notified; please see new order; [id number] this am covered with 1 Unit Humalog [...] 2:08 PM EDT OFFICE OF CARE MANAGEMENT Home Economist Consumer Service Follow-up Note S/O: Discussed plan of care [...] for 01/24/21 without needs to home. P: Home Economist Consumer Service to follow with team and family to assist with discharge needs when patient ready for discharge. Mary Weaver RNCM Pager: [phone] * Lisa Valles MD - 01/23/2021 7:59 [...] PLATELET 125* 114* 92* Recent Labs 01/23/2134801/22/2132101/21/21 1137 NA 130* 130* 133* K 4.2 4.2 3.6 CL 96* 96* 95* CO2 24 27 27 BUN 31* 36* 30* CREATININE 1.53* 2.11* 1.95* Recent Labs 01/23/2134801/22/2132101/21/21 1137 01/21/2144201/17/212050 CALCIUM 8.9 8.6 9.2 8.7 10.2 10.2 MAGNESIUM 0.84 0.94 -- 0.89 0.63* PHOS -- -- -- -- 3.5 Recent Labs 01/17/212050 AST 224* ALT 152* ALKPHOS 111* BILITOT 0.6 BILIDIR 0.3 No results for input(s): TROPONINT, CK in the last 168 hours. No results for input(s): PHART, TME6ZOG, PO2ART, LFG7ZOY in the last 168 hours. Inpatient Medications: [...] Valles MD PGY - 1, Internal Medicine 01/23/2021 Associated [...] of two midnights or is on the [facility] inpatient only procedure list (status C) due [...] Overview: Added automatically from request for surgery [id number] RUQ pain Overview: Added automatically from request for surgery [id number] Travis Callahan MD 01/23/2021 5:44 PM * Janet Rubi RN - 01/23/2021 2:34 AM EDT OUTCOME EVALUATION NOTE: ?? OUTCOME SUMMARY: ?? Pt a+ox4, VSS, c/o 05/20 pain, lidoderm patch's applied and tylenol given [...] for a bit and woke up with 11/10 abdominal pain and nausea, PO zofran given. [...] Intake/Output Summary (Last 24 hours) at 01/22/2021 0723 Last data filed at 01/22/2021 0617 Gross [...] person, place and time. Labs: Recent Labs 01/22/2132101/21/2144201/20/21418 WBC 13.1* 16.4* 20.1* HGB 9.6* 10.5* 11.4* PLATELET 114* 92* 134* Recent Labs 01/22/2132101/21/21113601/21/21442 NA 130* 133* 131* K 4.2 3.6 4.4 CL 96* 95* 97* CO2 27 27 25 BUN 36* 30* 28* CREATININE 2.11* 1.95* 1.79* Recent Labs 01/22/2132101/21/21113601/21/2144201/20/21 04101/17/212050 CALCIUM 8.6 9.2 8.7 9.1 10.2 10.2 MAGNESIUM 0.94 -- 0.89 0.69 0.63* PHOS -- -- -- -- 3.5 Recent Labs 01/17/212050 AST 224* ALT 152* ALKPHOS 111* BILITOT 0.6 BILIDIR 0.3 No results for input(s): TROPONINT, CK in the last 168 hours. No results for input(s): PHART, NWT3LHM, PO2ART, KBU0KOH in the last 168 hours. Inpatient Medications: [...] Valles MD PGY - 1, Internal Medicine 01/22/2021 Associated [...] of two midnights or is on the [facility] inpatient only procedure list (status C) due [...] Overview: Added automatically from request for surgery [id number] RUQ pain Overview: Added automatically from request for surgery [id number] Travis Callahan MD 01/22/2021 1:52 PM * [...] Arms reach ?? Surveillance [continuous indirect monitoring]: Kevino, purposeful rounding ?? Patient-specific fall prevention interventions for sensory deficits provided, if applicable: [X] N/A ? CPG GOAL OUTCOME EVALUATION: * Zohra Weaver RN - 01/21/2021 12:47 PM EDT OFFICE OF CARE MANAGEMENT Home Economist Consumer Service Follow-up Note S/O: Discussed plan of care with Primary team and Nursing to assess continuing care and discharge needs. LOS: 4 days Primary Insurance: AARP Managed Medicare Secondary Insurance: [facility] DECISION MAKER: Patient Pt continues to require hospitalization for: Acute pancreatitis, pain management. Current referrals in place: None indicated at this time A: Discharge plan for tentative medical readiness per MD 01/22/21, home without needs.. P: Home Economist Consumer Service to follow with team and family to assist with discharge needs when patient ready for discharge. Mary Weaver RNCM Pager: [phone] * Lisa Valles MD - 01/21/2021 7:41 [...] 25* CREATININE 1.79* 1.06 0.98 Recent Labs 01/21/2144201/20/21 0419 01/19/21 0306 01/17/212050 CALCIUM 8.7 9.1 9.2 10.2 10.2 MAGNESIUM 0.89 0.69 0.57* 0.63* PHOS -- -- -- 3.5 Recent Labs 01/17/212050 AST 224* ALT 152* ALKPHOS 111* BILITOT 0.6 BILIDIR 0.3 No results for input(s): TROPONINT, CK in the last 168 hours. No results for input(s): PHART, GPG2YAT, PO2ART, FCI0EFU in the last 168 hours. Inpatient Medications: [...] Infusions: ??? lactated Ringers 200 mL/hr (01/21/21 0355) PRN Meds:.HYDROmorphone OR HYDROmorphone OR HYDROmorphone, sodium [...] of two midnights or is on the [facility] inpatient only procedure list (status C) due [...] Overview: Added automatically from request for surgery [id number] RUQ pain Overview: Added automatically from request for surgery [id number] Travis Callahan MD 01/21/2021 12:56 PM * [...] ADLs]: Arms reach Surveillance [continuous indirect monitoring]: spring Carlosful rounding Patient-specific fall prevention interventions for sensory [...] person, place and time. Labs: Recent Labs 01/20/21 04101/19/21 0306 01/18/21 0400 WBC 20.1* 20.0* 13.1* HGB 11.4* 12.9 13.9 PLATELET 134* 149 180 Recent Labs 01/20/21 04101/19/21 0306 01/18/21 0400 NA 132* 135 137 K 3.5 3.6 3.9 CL 97* 101 103 CO2 27 25 20* BUN 19* 25* 34* CREATININE 1.06 0.98 1.24* Recent Labs 01/20/21 04101/19/21 0306 01/18/21 0400 01/17/212050 CALCIUM 9.1 9.2 9.9 10.2 10.2 MAGNESIUM 0.69 0.57* 0.59* 0.63* PHOS -- -- -- 3.5 Recent Labs 01/17/212050 AST 224* ALT 152* ALKPHOS 111* BILITOT 0.6 BILIDIR 0.3 No results for input(s): TROPONINT, CK in the last 168 hours. No results for input(s): PHART, QQW0UVB, PO2ART, GSN9PQG in the last 168 hours. Inpatient Medications: [...] of two midnights or is on the [facility] inpatient only procedure list (status C) due [...] Overview: Added automatically from request for surgery [id number] RUQ pain Overview: Added automatically from request for surgery [id number] Travis Callahan MD 01/20/2021 9:40 PM * [...] 14.2 PLATELET 149 180 186 Recent Labs 01/19/2130501/18/2139901/17/212050 NA 135 137 138 K 3.6 3.9 [...] 168 hours. No results for input(s): PHART, ZGV8VJS, PO2ART, ZTK1VFI in the last 168 hours. Inpatient Medications: [...] of two midnights or is on the [facility] inpatient only procedure list (status C) due [...] Overview: Added automatically from request for surgery [id number] RUQ pain Overview: Added automatically from request for surgery [id number] Travis Callahan MD 01/19/2021 7:21 PM * Cindy Cervantes, RN - 01/18/2021 10:02 PM EDT Pt BP 183/101, asymptomatic. notified, no orders received. Will continue to [...] and ADLs]: SBA Surveillance [continuous indirect monitoring]: Breanna, candida rounding Patient-specific fall prevention interventions for sensory [...] person, place and time. Labs: Recent Labs 01/18/2139901/17/212050 WBC 13.1* 13.8* HGB 13.9 14.2 PLATELET 180 186 Recent Labs 01/18/2139901/17/212050 NA 137 138 K 3.9 4.1 CL 103 101 CO2 20* 20* BUN 34* 36* CREATININE 1.24* 1.20 Recent Labs 01/18/21 0400 01/17/212050 CALCIUM 9.9 10.2 10.2 MAGNESIUM 0.59* 0.63* PHOS -- 3.5 Recent Labs 01/17/212050 AST 224* ALT 152* ALKPHOS 111* BILITOT 0.6 BILIDIR 0.3 No results for input(s): TROPONINT, CK in the last 168 hours. No results for input(s): PHART, TDG2MOG, PO2ART, DCY0PPX in the last 168 hours. Inpatient Medications: [...] concerns of pancreatitis following ERCP. PCP: Asia Gil DO History of Present Illness (obtained from patient, [...] decision makers: [her] daughters Lisa Valles MD PGY-1 Admitting to [facility] team, #[id number] 01/17/2021 Associated attestation - Travis Callahan MD [...] of two midnights or is on the [facility] inpatient only procedure list (status C) due [...] Overview: Added automatically from request for surgery [id number] RUQ pain Overview: Added automatically from request for surgery [id number] Travis Callahan MD 01/18/2021 9:46 PM * [...] RA Complained of intermittent right flank pain 6-9/10-PRN dilaudid given; Advil and Tylenol-see MAR Assessment [...] If AD's have not been completed unable, connie Bacon and Silvana Coley would be surrogate decision maker per [place] surrogate decision making law. (Only good for 90 days) Any patient receiving care at [facility] must abide by [place] law. The hierarchy for surrogate decision making is: (a) Patient???s spouse, or civil union partner or common law spouse unless there is a Rhona patientreceiving care at [facility] must abide by [place] law. The hierarchy for surrogate decision making [...] (i) The agent with financial power of control valve mechanic or a conservator appointed in accordance with [...] Primary Insurance: AARP MANAGED MEDICARE Secondary Insurance: [employer] [place] Prescription Coverage: yes Preferred Pharmacy: [facility] Other: Primary Care Provider: Asia Gil DO [phone] Patient/Caregiver Goals of Treatment: relieve pain and [...] of care planning. Nadia Mccartney, RN Weekend transplant case manager coverage. * Plan of Care - Cindy Cervantes RN - 01/19/2021 2:56 AM EDT OUTCOME EVALUATION NOTE: OUTCOME SUMMARY: Pt A&Ox4. VSS on RA except for elevated blood pressures, MD aware. Pt c/o 8/10 pain this shift,given prn oxycodone, see MAR. [...] Leigh MD - 01/17/2021 11:57 AM EDT [facility] Operative Note Patient Name: Toyin Coley : [id number] MR#: [id number] Case Date: 01/17/2021 Surgeon: Surgeon(s) and Role: [...] 10:30 AM EDT Hospital Encounter [place] [phone] Bk Contreras MD [facility] [place] [address] 05/08/2024 10:30 AM EDT - 05/08/2024 11:00 AM EDT Surgery [place] [phone] Bk Contreras MD [facility] [place] [address] INJECTION, ANESTHETIC AGENT AND/OR STEROID, TRANSFORAMINAL EPIDURAL, LUMBAR OR SACRAL, SINGLE LEVEL (WRVU 1.9) 05/12/2024 1:00 PM EDT Office Visit Cardiology at [address] [phone] Sadi Styles MD [facility] [place] [address] 05/29/2024 10:15 AM EDT TH Visit (TeleHealth) [facility] [place] [phone] Natalee Sanchez, FORENSIC MATERIALS ENGINEER [facility] [place] [address] Scheduled Procedures Name Priority Associated Diagnoses Date/Ti [...] 01/17/2021 11:27 PM EDT RAPID COVID-19 PCR ([facility]) Routine 01/17/2021 10:22 PM EDT HEMOGRAM Routine [...] Routine 01/17/2021 11:37 AM EDT Ercp, Diagnostic (78728) 01/17/2021 11:36 AM EDT Cystic duct calculus RUQ pain POCT GLUCOSE Routine 01/17/2021 10:07 AM EDT documented in this encounter Results * (ABNORMAL) BMP w/fasting Glucose (01/27/2021 10:44 AM EDT) [facility] Glucose Fasting 139(H) 65 - 99 mg/dL [facility] Comment: ?Fasting* Glucose Interpretive Criteria [...] of Diabetes Mellitus, Position Statement from the [place] [employer]. ??Diabetes Care, Volume 33, Supplement 1, Oct 2009 BUN 24(H) 8 - 18 mg/dL [facility] Creatinine 1.54(H) 0.70 - 1.20 mg/dL [facility] Sodium 131(L) 135 - 145 mmol/L [facility] Potassium 3.9 3.5 - 5.0 mmol/L [facility] Comment: Please note: ??Patients with WBC >100,000 may have falsely elevated Potassium levels. ??For accurate Potassium quantification in these patients send serum separator tube (gold top) for subsequent determinations. ??Contact the Clinical Chemistry Laboratory if there are any questions. Chloride 97(L) 98 - 107 mmol/L [facility] CO2 27 22 - 31 mmol/L [facility] [facility] Anion Gap 7 5 - 15 mmol/L [facility] Calcium 8.3(L) 8.5 - 10.5 mg/dL [facility] Estimated GFR 35(L) >=60 mL/min/1. 73 m?? [facility] MD CHEMISTRY ORDERA BLES Performing Organization Address City/[facility]/ZIP Co de Phone Number [facility] [place] [address] * (ABNORMAL) Differential, Automated (01/27/2021 3:35 AM EDT) Neutrophils % 92.8 % [facility] Neutr Abs (ANC) 17.30(H) 1.70 - 6.10 x10(3)/mc L [facility] Lymphocytes % 3.9 % [facility] Lymphocytes Abs 0.7(L) 0.9 - 3.2 x10(3)/[facility] LABORATORY Monocytes % 1.9 % [facility] Monocyte Abs 0.4 0.3 - 0.9 x10(3)/[facility] LABORATORY Eosinophils % 0.2 % [facility] Eosinophils Abs 0.0 0.0 - 0.4 x10(3)/[facility] LABORATORY Basophils % 0.2 % [facility] Basophils Abs 0.0 0.0 - 0.1 x10(3)/[facility] LAB[facility]ORY Immature Gran % 1.00 % [facility] Comment: Immature granulocytes(IG's)percentage and absolute count will include metamyelocytes, myelocytes, and promyelocytes. Blood smears from CBCs yielding IG's will be scanned manually for concordance. If this scan disagrees with the automated IG or if promyelocytes are noted, a manual differential will be performed. Anya Gran Abs 0.18(H) 0.00 - 0.04 x10(3)/ L [facility] Blood specimen (specimen) 01/27/2021 3:35 AM EDT 01/27/2021 3:44 AM EDT Narrative Resulting Agency Comment Spec In Lab Freddie Montes MD HEMATOLOGY ORDERABLE S Performing Organization Address City/[facility]/ZIP Co de Phone Number [facility] [place] [address] * (ABNORMAL) Hemogram (01/27/2021 3:35 AM EDT) WBC 18.6(H) 4.0 - 9.5 x10(3)/[facility] LABORATORY RBC 2.93(L) 4.00 - 5.21 x10(6)/[facility] LABORATORY Hemoglobin 9.3(L) 11.7 - 15.5 gm/dL [facility] Hematocrit 27.5(L) 35.7 - 45.8 % [facility] MCV 93.9 82.6 - 94.4 fL [facility] MCH 31.7 27.1 - 32.0 pg [facility] MCHC 33.8 31.7 - 35.0 gm/dL [facility] Platelets 108(L) 145 - 357 x10(3)/[facility] LABORATORY RDWSD 44.3 37.0 - 46.0 [facility] LABORATORY RDWCV 12.8 11.5 - 14.1 % [facility] MPV 11.3 7.6 - 12.9 [facility]ORY nRBC % Auto 0.0 % [facility] nRBC Abs Auto 0.000 0.000 - 0.000 x10(3)/[facility] LABORATORY Blood specimen (specimen) 01/27/2021 3:35 AM EDT 01/27/2021 3:44 AM EDT Narrative Resulting Agency Comment Spec In Lab Freddie Montes MD HEMATOLOGY ORDERABLE S [facility] [place] [address] * Magnesium (01/27/2021 3:35 AM EDT) Magnesium 0.77 0.69 - 1.07 mmol/L [facility] Blood specimen (specimen) 01/27/2021 3:35 AM EDT 01/27/2021 3:44 AM EDT Narrative Resulting Agency Comment Spec In Lab Katt Dumont MD CHEMISTRY ORDERABLES [facility] [place] [address] * (ABNORMAL) Basic Metabolic Panel (non-fasting) (01/27/2021 3:35 AM EDT) Glucose Lvl 112 65 - 199 mg/dL [facility] Comment:Diabetes: >=200 mg/d L plus symptoms BUN 25(H) 8 - 18 mg/dL [facility] Creatinine 1.63(H) 0.70 - 1.20 mg/dL [facility] Sodium 132(L) 135 - 145 mmol/L [facility] Potassium 3.2(L) 3.5 - 5.0 mmol/L [facility] Comment: Please note: ??Patients with WBC >100,000 may have falsely elevated Potassium levels. ??For accurate Potassium quantification in these patients send serum separator tube (gold top) for subsequent determinations. ??Contact the Clinical Chemistry Laboratory if there are any questions. Chloride 97(L) 98 - 107 mmol/L [facility] CO2 25 22 - 31 mmol/L [facility] Anion Gap 10 5 - 15 mmol/L [facility] Calcium 8.4(L) 8.5 - 10.5 mg/dL [facility] Estimated GFR 32(L) >=60 mL/min/1. 73 m?? [facility] [...] Dumont MD CHEMISTRY ORDERABLES Performing Organization Address [facility] Co de Phone Number [facility] [place] [address] * Scan, Peripheral Blood (01/26/2021 4:23 AM EDT) Plat Estimate Decreased [facility] RBC Morphology Abnormal [facility] [place] Cells 1-5 /HPF [facility] Toxic Granulation Present [facility] Vacuolated Neut Present [facility] Blood specimen (specimen) 01/26/2021 4:23 AM EDT 01/26/2021 4:36 AM EDT Narrative Resulting Agency Comment Spec In Lab Freddie Montes MD HEMATOLOGY ORDERABLE S Performing Organization Address [facility] Co de Phone Number [facility] [place] [address] * (ABNORMAL) Differential, Automated (01/26/2021 4:23 AM EDT) Neutrophils % 93.4 % [facility] Neutr Abs (ANC) 20.36(H) 1.70 - 6.10 x10(3)/mc L [facility] Lymphocytes % 3.8 % [facility] Lymphocytes Abs 0.8(L) 0.9 - 3.2 x10(3)/mc L [facility] Monocytes % 1.7 % [facility] Monocyte Abs 0.4 0.3 - 0.9 x10(3)/mc L [facility] Eosinophils % 0.0 % [facility] Eosinophils Abs 0.0 0.0 - 0.4 x10(3)/[facility] LABORATORY Basophils % 0.0 % [facility] Basophils Abs 0.0 0.0 - 0.1 x10(3)/[facility] LABORATORY Immature Gran % 1.10 % [facility] Comment: Immature granulocytes(IG's)percentage and absolute count will include metamyelocytes, myelocytes, and promyelocytes. Blood smears from CBCs yielding IG's will be scanned manually for concordance. If this scan disagrees with the automated IG or if promyelocytes are noted, a manual differential will be performed. Anya Gran Abs 0.24(H) 0.00 - 0.04 x10(3)/[facility] LAB[facility]ATORY Blood specimen (specimen) 01/26/2021 4:23 AM EDT 01/26/2021 4:36 AM EDT Narrative Resulting Agency Comment Spec In Lab Freddie Montes MD HEMATOLOGY ORDERABLE S [facility] [place] [address] * (ABNORMAL) Hemogram (01/26/2021 4:23 AM EDT) WBC 21.8(H) 4.0 - 9.5 x10(3)/[facility] LABORATORY RBC 3.26(L) 4.00 - 5.21 x10(6)/[facility] LAB[facility]ATORY Hemoglobin 10.3(L) 11.7 - 15.5 gm/dL [facility] Hematocrit 30.6(L) 35.7 - 45.8 % [facility] MCV 93.9 82.6 - 94.4 fL [facility] MCH 31.6 27.1 - 32.0 pg [facility] MCHC 33.7 31.7 - 35.0 gm/dL [facility] Platelets 135(L) 145 - 357 x10(3)/[facility] LABORATORY RDWSD 43.4 37.0 - 46.0 [facility] LABORATORY RDWCV 12.5 11.5 - 14.1 % [facility] MPV 11.1 7.6 - 12.9 [facility] LAB[facility] nRBC % Auto 0.0 % [facility] nRBC Abs Auto 0.000 0.000 - 0.000 x10(3)/[facility] LABORAT[facility] Blood specimen (specimen) 01/26/2021 4:23 AM EDT 01/26/2021 4:36 AM EDT Narrative Resulting Agency Comment Spec In Lab Freddie Montes MD HEMATOLOGY ORDERABLE S [facility] [place] [address] * Magnesium (01/26/2021 4:23 AM EDT) Magnesium 0.98 0.69 - 1.07 mmol/L [facility] Blood specimen (specimen) 01/26/2021 4:23 AM EDT 01/26/2021 4:36 AM EDT Narrative Resulting Agency Comment Spec In Lab Katt Dumont MD CHEMISTRY ORDERABLES Performing Organization Address City/[facility]/ZIP Co de Phone Number [facility] [place] [address] * (ABNORMAL) Basic Metabolic Panel (non-fasting) (01/26/2021 4:23 AM EDT) Glucose Lvl 122 65 - 199 mg/dL [facility] Comment:Diabetes: >=200 mg/d L plus symptoms BUN 16 8 - 18 mg/dL [facility] Creatinine 1.05 0.70 - 1.20 mg/dL [facility] Sodium 135 135 - 145 mmol/L [facility] Potassium 3.1(L) 3.5 - 5.0 mmol/L [facility] Comment: Please note: ??Patients with WBC >100,000 may have falsely elevated Potassium levels. ??For accurate Potassium quantification in these patients send serum separator tube (gold top) for subsequent determinations. ??Contact the Clinical Chemistry Laboratory if there are any questions. Chloride 101 98 - 107 mmol/L [facility] CO2 23 22 - 31 mmol/L [facility] Anion Gap 11 5 - 15 mmol/L [facility] Calcium 8.8 8.5 - 10.5 mg/dL [facility] Estimated GFR 55(L) >=60 mL/min/1. 73 m?? [facility] [...] In Lab Katt Dumont MD CHEMISTRY ORDERABLES [facility] [place] [address] * EKG 12 Lead (01/25/2021 8:28 AM EDT) Ventricular rate 111 BPM MUSE SYSTEM Atrial Rate 111 BPM MUSE SYSTEM P-R Interval 194 ms MUSE SYSTEM QRS Duration 86 ms MUSE SYSTEM Q-T Interval 332 ms MUSE SYSTEM QTC Calculated (Bezet) 451 ms MUSE SYSTEM Calculated P [place] 26 degrees MUSE SYSTEM Calculated R [place] 46 degrees MUSE SYSTEM Calculated T [place] 10 degrees MUSE SYSTEM INTERPRETATION Sinus tachycardia Inferior infarct (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) Anterolateral infarct (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) Abnormal ECG When compared with ECG of 10-APR-2020 09:37, Premature supraventricular complexes are no longer Present T wave inversion now evident in Inferior leads T wave inversion no longer evident in Anterolateral leads Confirmed by MD Price Kevin ([id number]) on 01/27/2021 6:34:16 AM MUSE SYSTEM 01/25/2021 8:28 AM EDT 01/27/2021 6:34 AM EDT Travis Callahan MD ECG ORDERABLES MUSE SYSTEM * (ABNORMAL) Differential, Automated (01/25/2021 4:35 AM EDT) Neutrophils % 87.2 % [facility] Neutr Abs (ANC) 13.27(H) 1.70 - 6.10 x10(3)/ L [facility] Lymphocytes % 6.2 % [facility] Lymphocytes Abs 0.9 0.9 - 3.2 x10(3)/[facility] LABORATORY Monocytes % 5.5 % [facility] Monocyte Abs 0.8 0.3 - 0.9 x10(3)/[facility] LABORATORY Eosinophils % 0.1 % [facility] Eosinophils Abs 0.0 0.0 - 0.4 x10(3)/ L [facility] Basophils % 0.1 % [facility] Basophils Abs 0.0 0.0 - 0.1 x10(3)/ L [facility] Immature Gran % 0.90 % [facility] Comment: Immature granulocytes(IG's)percentage and absolute count will include metamyelocytes, myelocytes, and promyelocytes. Blood smears from CBCs yielding IG's will be scanned manually for concordance. If this scan disagrees with the automated IG or if promyelocytes are noted, a manual differential will be performed. Anya Gran Abs 0.14(H) 0.00 - 0.04 x10(3)/mc L [facility] Blood specimen (specimen) 01/25/2021 4:35 AM EDT 01/25/2021 5:19 AM EDT Narrative Resulting Agency Comment Spec In Lab Freddie Montes MD HEMATOLOGY ORDERABLE S [facility] [place] [address] * (ABNORMAL) Hemogram (01/25/2021 4:35 AM EDT) WBC 15.2(H) 4.0 - 9.5 x10(3)/[facility] LABORATORY RBC 3.13(L) 4.00 - 5.21 x10(6)/[facility] LABORATORY Hemoglobin 9.9(L) 11.7 - 15.5 gm/dL [facility] Hematocrit 29.3(L) 35.7 - 45.8 % [facility] MCV 93.6 82.6 - 94.4 fL [facility] MCH 31.6 27.1 - 32.0 pg [facility] MCHC 33.8 31.7 - 35.0 gm/dL [facility] Platelets 135(L) 145 - 357 x10(3)/[facility] LABORATORY RDWSD 43.1 37.0 - 46.0 [facility] LABORATORY RDWCV 12.5 11.5 - 14.1 % [facility] MPV 10.9 7.6 - 12.9 [facility] LABORATORY nRBC % Auto 0.0 % [facility] nRBC Abs Auto 0.000 0.000 - 0.000 x10(3)/[facility] LABORATORY Blood specimen (specimen) 01/25/2021 4:35 AM EDT 01/25/2021 5:19 AM EDT Narrative Resulting Agency Comment Spec In Lab Freddie Montes MD HEMATOLOGY ORDERABLE S Performing Organization Address City/[facility]/ZIP Co de Phone Number [facility] [place] [address] * (ABNORMAL) Magnesium (01/25/2021 4:35 AM EDT) Pathologist [facility] Magnesium 0.66(L) 0.69 - 1.07 mmol/L [facility] Blood specimen (specimen) 01/25/2021 4:35 AM EDT 01/25/2021 5:19 AM EDT Narrative Resulting Agency Comment Spec In Lab Katt Dumont MD CHEMISTRY ORDERABLES Performing Organization Address [facility]/ZIP Co de Phone Number [facility] [place] [address] * (ABNORMAL) Basic Metabolic Panel (non-fasting) (01/25/2021 4:35 AM EDT) Pathologist [facility] Glucose Lvl 159 65 - 199 mg/dL [facility] Comment:Diabetes: >=200 mg/d L plus symptoms BUN 19(H) 8 - 18 mg/dL [facility] Creatinine 1.25(H) 0.70 - 1.20 mg/dL [facility] Sodium 132(L) 135 - 145 mmol/L [facility] Potassium 3.4(L) 3.5 - 5.0 mmol/L [facility] Comment: Please note: ??Patients with WBC >100,000 may have falsely elevated Potassium levels. ??For accurate Potassium quantification in these patients send serum separator tube (gold top) for subsequent determinations. ??Contact the Clinical Chemistry Laboratory if there are any questions. Chloride 96(L) 98 - 107 mmol/L [facility] CO2 25 22 - 31 mmol/L [facility] Anion Gap 11 5 - 15 mmol/L [facility] Calcium 8.6 8.5 - 10.5 mg/dL [facility] Estimated GFR [...] In Lab Katt Dumont MD CHEMISTRY ORDERABLES [facility] [place] [address] * XR Abdomen Flat & Upright (01/24/2021 [...] who have questions please contact the health wound care physician that requested your imaging first. ? Electronically signed by: Johnna Jacques MD[facility] ([phone]), at 01/24/2021 7:10 PM Narrative 01/24/2021 7:10 [...] patients who have questions please contactthe health wound care physician that requested your imaging first. Electronically signed by: Johnna Jacques MD, [facility]([phone]), at 01/24/2021 7:10 PM Travis Callahan MD IMG DX ORDERABLES * POCT Glucose (01/24/2021 11:29 AM EDT) POC Glucose 177 65 - 199 mg/dL [facility] Comment: Supplemental ranges: <140 mg/dL before meals <180 mg/dL all other times of the day Blood specimen (specimen) 01/24/2021 11:29 AM EDT 01/24/2021 11:29 AM EDT Travis Callahan MD POINT OF CARE TEST O MAUREEN Performing Organization Address [facility] Co de Phone Number [facility] [place] [address] * POCT Glucose (01/24/2021 6:31 AM EDT) Pathologist [facility] POC Glucose 182 65 - 199 mg/dL [facility] Comment: Supplemental ranges: <140 mg/dL before meals <180 mg/dL all other times of the day Blood specimen (specimen) 01/24/2021 6:31 AM EDT 01/24/2021 6:31 AM EDT Travis Callahan MD POINT OF CARE TEST O MAUREEN Performing Organization Address [facility] de Phone Number [facility] [place] [address] * (ABNORMAL) Differential, Automated (01/24/2021 4:59 AM EDT) [facility] Neutrophils % 80.3 % [facility] Neutr Abs (ANC) 11.07(H) 1.70 - 6.10 x10(3)/mc L [facility] Lymphocytes % 8.6 % [facility] Lymphocytes Abs 1.2 0.9 - 3.2 x10(3)/mc L [facility] Monocytes % 9.4 % [facility] Monocyte Abs 1.3(H) 0.3 - 0.9 x10(3)/mc L [facility] Eosinophils % 0.2 % [facility] Eosinophils Abs 0.0 0.0 - 0.4 x10(3)/mc L [facility] Basophils % 0.1 % [facility] Basophils Abs 0.0 0.0 - 0.1 x10(3)/ L [facility] Immature Gran % 1.40 % [facility] Comment: Immature granulocytes(IG's)percentage and absolute count will include metamyelocytes, myelocytes, and promyelocytes. Blood smears from CBCs yielding IG's will be scanned manually for concordance. If this scan disagrees with the automated IG or if promyelocytes are noted, a manual differential will be performed. Anya Gran Abs 0.19(H) 0.00 - 0.04 x10(3)/mc L [facility] Blood specimen (specimen) 01/24/2021 4:59 AM EDT 01/24/2021 5:28 AM EDT Narrative Resulting Agency Comment Spec In Lab Freddie Montes MD HEMATOLOGY ORDERABLE S [facility] [place] [address] * (ABNORMAL) Hemogram (01/24/2021 4:59 AM EDT) WBC 13.8(H) 4.0 - 9.5 x10(3)/[facility] LABORATORY RBC 3.31(L) 4.00 - 5.21 x10(6)/[facility] LABORATORY Hemoglobin 10.4(L) 11.7 - 15.5 gm/dL [facility] Hematocrit 30.8(L) 35.7 - 45.8 % [facility] MCV 93.1 82.6 - 94.4 fL [facility] MCH 31.4 27.1 - 32.0 pg [facility] MCHC 33.8 31.7 - 35.0 gm/dL [facility] Platelets 145 145 - 357 x10(3)/[facility] RDWSD 41.0 37.0 - 46.0 fL [facility] RDWCV 12.1 11.5 - 14.1 % [facility] MPV 10.6 7.6 - 12.9 fL [facility] nRBC % Auto 0.0 % [facility] nRBC Abs Auto 0.000 0.000 - 0.000 x10(3)/mcL [facility] Blood specimen (specimen) 01/24/2021 4:59 AM EDT 01/24/2021 5:28 AM EDT Narrative Resulting Agency Comment Spec In Lab Freddie Montes MD HEMATOLOGY ORDERABLE S Performing Organization Address City/[facility] Co de Phone Number [facility] [place] [address] * Magnesium (01/24/2021 4:59 AM EDT) Magnesium 0.95 0.69 - 1.07 mmol/L [facility] Blood specimen (specimen) 01/24/2021 4:59 AM EDT 01/24/2021 5:28 AM EDT Narrative Resulting Agency Comment Spec In Lab Katt Dumont MD CHEMISTRY ORDERABLES Performing Organization Address [facility] Co de Phone Number [facility] [place] [address] * (ABNORMAL) Basic Metabolic Panel (non-fasting) (01/24/2021 4:59 AM EDT) Glucose Lvl 129 65 - 199 mg/dL [facility] Comment:Diabetes: >=200 mg/d L plus symptoms BUN 23(H) 8 - 18 mg/dL [facility] Creatinine 1.32(H) 0.70 - 1.20 mg/dL [facility] Sodium 133(L) 135 - 145 mmol/L [facility] Potassium 4.1 3.5 - 5.0 mmol/L [facility] Comment: Please note: ??Patients with WBC >100,000 may have falsely elevated Potassium levels. ??For accurate Potassium quantification in these patients send serum separator tube (gold top) for subsequent determinations. ??Contact the Clinical Chemistry Laboratory if there are any questions. Chloride 95(L) 98 - 107 mmol/L [facility] CO2 28 22 - 31 mmol/L [facility] Anion Gap 10 5 - 15 mmol/L [facility] Calcium 9.0 8.5 - 10.5 mg/dL [facility] Estimated GFR 42(L) >=60 mL/min/1. 73 m?? [facility] Dumont MD CHEMISTRY ORDERABLES Performing Organization Address City/[facility]/ZIP Co de Phone Number [facility] [place] [address] * POCT Glucose (01/24/2021 4:00 AM EDT) POC Glucose 136 65 - 199 mg/dL [facility] Comment: Supplemental ranges: <140 mg/dL before meals <180 mg/dL all other times of the day Blood specimen (specimen) 01/24/2021 4:00 AM EDT 01/24/2021 4:00 AM EDT Travis Callahan MD POINT OF CARE TEST O RDERABLES Performing Organization Address City/[facility]/ZIP Co de Phone Number [facility] [place] [address] * POCT Glucose (01/23/2021 11:46 PM EDT) POC Glucose 158 65 - 199 mg/dL [facility] Comment: Supplemental ranges: <140 mg/dL before meals <180 mg/dL all other times of the day Blood specimen (specimen) 01/23/2021 11:46 PM EDT 01/23/2021 11:46 PM EDT Travis Callahan MD POINT OF CARE TEST O RDERAMARIE [facility] [place] [address] * POCT Glucose (01/23/2021 7:45 PM EDT) POC Glucose 111 65 - 199 mg/dL [facility] Comment: Supplemental ranges: <140 mg/dL before meals <180 mg/dL all other times of the day Blood specimen (specimen) 01/23/2021 7:45 PM EDT 01/23/2021 7:45 PM EDT Travis Callahan MD POINT OF CARE TEST O RDERAMARIE Performing Organization Address City/[facility]/ZIP Co de Phone Number [facility] [place] [address] * POCT Glucose (01/23/2021 3:24 PM EDT) POC Glucose 122 65 - 199 mg/dL [facility] Comment: Supplemental ranges: <140 mg/dL before meals <180 mg/dL all other times of the day Blood specimen (specimen) 01/23/2021 3:24 PM EDT 01/23/2021 3:24 PM EDT Travis Callahan MD POINT OF CARE TEST O RDERAMARIE [facility] [place] [address] * POCT Glucose (01/23/2021 11:40 AM EDT) POC Glucose 151 65 - 199 mg/dL [facility] Comment: Supplemental ranges: <140 mg/dL before meals <180 mg/dL all other times of the day Blood specimen (specimen) 01/23/2021 11:40 AM EDT 01/23/2021 11:40 AM EDT Travis Callahan MD POINT OF CARE TEST O MAUREEN Performing Organization Address [facility] de Phone Number [facility] [place] [address] * POCT Glucose (01/23/2021 6:36 AM EDT) POC Glucose 147 65 - 199 mg/dL [facility] Comment: Supplemental ranges: <140 mg/dL before meals <180 mg/dL all other times of the day Blood specimen (specimen) 01/23/2021 6:36 AM EDT 01/23/2021 6:36 AM EDT Travis Callahan MD POINT OF CARE TEST O MAUREEN Performing Organization Address [facility] de Phone Number [facility] [place] [address] * XR Abdomen Flat & Upright (01/23/2021 [...] who have questions please contact the health wound care physician that requested your imaging first. ? Electronically signed by: Van Moy MD, [facility] ([phone]), at 01/23/2021 6:23 AM Narrative 01/23/2021 6:23 AM EDT EXAMINATION: XR ABDOMEN FLAT AND UPRIGHT CLINICAL HISTORY: 07/20 abdominal pain, c/f obstruction obstruction vs. free [...] XR ABDOMEN FLAT AND UPRIGHT CLINICAL HISTORY: 07/20 abdominal pain, c/f obstruction obstruction vs. free [...] patients who have questions please contactthe health wound care physician that requested your imaging first. Electronically signed by: Van Moy MD[facility]([phone]), at 01/23/2021 6:23 AM Travis Callahan MD IMG DX ORDERABLES * POCT Glucose (01/23/2021 4:12 AM EDT) POC Glucose 131 65 - 199 mg/dL [facility] Comment: Supplemental ranges: <140 mg/dL before meals <180 mg/dL all other times of the day Blood specimen (specimen) 01/23/2021 4:12 AM EDT 01/23/2021 4:12 AM EDT Travis Callahan MD POINT OF CARE TEST O RDERABLES [facility] [place] [address] * (ABNORMAL) Differential, Automated (01/23/2021 3:49 AM EDT) Neutrophils % 81.3 % [facility] Neutr Abs (ANC) 11.34(H) 1.70 - 6.10 x10(3)/[facility] LABORATORY Lymphocytes % 7.0 % [facility] Lymphocytes Abs 1.0 0.9 - 3.2 x10(3)/[facility] LABORATORY Monocytes % 9.8 % [facility] Monocyte Abs 1.4(H) 0.3 - 0.9 x10(3)/[facility] LABORATORY Eosinophils % 0.3 % [facility] Eosinophils Abs 0.0 0.0 - 0.4 x10(3)/[facility] LABORATORY Basophils % 0.4 % [facility] Basophils Abs 0.0 0.0 - 0.1 x10(3)/[facility] LABORATORY Immature Gran % 1.20 % [facility] Comment: Immature granulocytes(IG's)percentage and absolute count will include metamyelocytes, myelocytes, and promyelocytes. Blood smears from CBCs yielding IG's will be scanned manually for concordance. If this scan disagrees with the automated IG or if promyelocytes are noted, a manual differential will be performed. Anya Gran Abs 0.17(H) 0.00 - 0.04 x10(3)/ L [facility] Blood specimen (specimen) 01/23/2021 3:49 AM EDT 01/23/2021 3:59 AM EDT Narrative Resulting Agency Comment Spec In Lab Freddie Montes MD HEMATOLOGY ORDERABLE S [facility] [place] [address] * (ABNORMAL) Hemogram (01/23/2021 3:49 AM EDT) WBC 13.9(H) 4.0 - 9.5 x10(3)/[facility] LABORATORY RBC 3.32(L) 4.00 - 5.21 x10(6)/[facility] LABORATORY Hemoglobin 10.5(L) 11.7 - 15.5 gm/dL [facility] Hematocrit 31.6(L) 35.7 - 45.8 % [facility] MCV 95.2(H) 82.6 - 94.4 [facility] LABORATORY MCH 31.6 27.1 - 32.0 pg [facility] MCHC 33.2 31.7 - 35.0 gm/dL [facility] Platelets 125(L) 145 - 357 x10(3)/[facility] LABORATORY RDWSD 41.0 37.0 - 46.0 [facility] LABORATORY RDWCV 11.9 11.5 - 14.1 % [facility] MPV 11.0 7.6 - 12.9 [facility] LABORATORY nRBC % Auto 0.0 % [facility] nRBC Abs Auto 0.000 0.000 - 0.000 x10(3)/[facility] LABORATORY Blood specimen (specimen) 01/23/2021 3:49 AM EDT 01/23/2021 3:59 AM EDT Narrative Resulting Agency Comment Spec In Lab Freddie Montes MD HEMATOLOGY ORDERABLE S [facility] [place] [address] * Magnesium (01/23/2021 3:49 AM EDT) Pathologist [facility] Magnesium 0.84 0.69 - 1.07 mmol/L [facility] Blood specimen (specimen) 01/23/2021 3:49 AM EDT 01/23/2021 3:59 AM EDT Narrative Resulting Agency Comment Spec In Lab Katt Dumont MD CHEMISTRY ORDERABLES [facility] [place] [address] * (ABNORMAL) Basic Metabolic Panel (non-fasting) (01/23/2021 3:49 AM EDT) [facility] Glucose Lvl 135 65 - 199 mg/dL [facility] Comment:Diabetes: >=200 mg/d L plus symptoms BUN 31(H) 8 - 18 mg/dL [facility] Creatinine 1.53(H) 0.70 - 1.20 mg/dL [facility] Sodium 130(L) 135 - 145 mmol/L [facility] Potassium 4.2 3.5 - 5.0 mmol/L [facility] Comment: Please note: ??Patients with WBC >100,000 may have falsely elevated Potassium levels. ??For accurate Potassium quantification in these patients send serum separator tube (gold top) for subsequent determinations. ??Contact the Clinical Chemistry Laboratory if there are any questions. Chloride 96(L) 98 - 107 mmol/L [facility] CO2 24 22 - 31 mmol/L [facility] Anion Gap 10 5 - 15 mmol/L [facility] Calcium 8.9 8.5 - 10.5 mg/dL [facility] Estimated GFR 35(L) >=60 mL/min/1. 73 m?? [facility] [...] Dumont MD CHEMISTRY ORDERABLES Performing Organization Address [facility] Co de Phone Number [facility] [place] [address] * POCT Glucose (01/22/2021 10:59 PM EDT) POC Glucose 145 65 - 199 mg/dL [facility] Comment: Supplemental ranges: <140 mg/dL before meals <180 mg/dL all other times of the day Blood specimen (specimen) 01/22/2021 10:59 PM EDT 01/22/2021 10:59 PM EDT Travis Callahan MD POINT OF CARE TEST O RDERABLES Performing Organization Address [facility]/ZIP Co de Phone Number [facility] [place] [address] * POCT Glucose (01/22/2021 8:03 PM EDT) POC Glucose 174 65 - 199 mg/dL [facility] Comment: Supplemental ranges: <140 mg/dL before meals <180 mg/dL all other times of the day Blood specimen (specimen) 01/22/2021 8:03 PM EDT 01/22/2021 8:03 PM EDT Travis Callahan MD POINT OF CARE TEST O RDERABLES Performing Organization Address [facility]/ZIP Co de Phone Number [facility] [place] [address] * POCT Glucose (01/22/2021 3:58 PM EDT) POC Glucose 146 65 - 199 mg/dL [facility] Comment: Supplemental ranges: <140 mg/dL before meals <180 mg/dL all other times of the day Blood specimen (specimen) 01/22/2021 3:58 PM EDT 01/22/2021 3:58 PM EDT Travis Callahan MD POINT OF CARE TEST O RDERABLES Performing Organization Address [facility] Co de Phone Number [facility] [place] [address] * POCT Glucose (01/22/2021 11:34 AM EDT) POC Glucose 114 65 - 199 mg/dL [facility] Comment: Supplemental ranges: <140 mg/dL before meals <180 mg/dL all other times of the day Blood specimen (specimen) 01/22/2021 11:34 AM EDT 01/22/2021 11:34 AM EDT Travis Callahan MD POINT OF CARE TEST O RDERABLES Performing Organization Address City/[facility] Co de Phone Number [facility] [place] [address] * POCT Glucose (01/22/2021 6:32 AM EDT) POC Glucose 97 65 - 199 mg/dL [facility] Comment: Supplemental ranges: <140 mg/dL before meals <180 mg/dL all other times of the day Blood specimen (specimen) 01/22/2021 6:32 AM EDT 01/22/2021 6:32 AM EDT Travis Callahan MD POINT OF CARE TEST O RDERABLES Performing Organization Address City/[facility]/[place] [address] * (ABNORMAL) Differential, Automated (01/22/2021 3:22 AM EDT) Neutrophils % 82.5 % [facility] Neutr Abs (ANC) 10.79(H) 1.70 - 6.10 x10(3)/[facility] LABORATORY Lymphocytes % 9.3 % [facility] Lymphocytes Abs 1.2 0.9 - 3.2 x10(3)/[facility] LABORATORY Monocytes % 6.8 % [facility] Monocyte Abs 0.9 0.3 - 0.9 x10(3)/[facility] LABORATORY Eosinophils % 0.6 % [facility] Eosinophils Abs 0.1 0.0 - 0.4 x10(3)/[facility] LABORATORY Basophils % 0.2 % [facility] Basophils Abs 0.0 0.0 - 0.1 x10(3)/[facility] LABORATORY Immature Gran % 0.60 % [facility] Comment: Immature granulocytes(IG's)percentage and absolute count will include metamyelocytes, myelocytes, and promyelocytes. Blood smears from CBCs yielding IG's will be scanned manually for concordance. If this scan disagrees with the automated IG or if promyelocytes are noted, a manual differential will be performed. Anya Gran Abs 0.08(H) 0.00 - 0.04 x10(3)/[facility] LABORATORY Blood specimen (specimen) 01/22/2021 3:22 AM EDT 01/22/2021 4:03 AM EDT Narrative Resulting Agency Comment Spec In Lab Freddie Montes MD HEMATOLOGY ORDERABLE S Performing Organization Address City/[facility]/[place] [address] * (ABNORMAL) Hemogram (01/22/2021 3:22 AM EDT) WBC 13.1(H) 4.0 - 9.5 x10(3)/[facility] LABORATORY RBC 2.99(L) 4.00 - 5.21 x10(6)/[facility] LABORATORY Hemoglobin 9.6(L) 11.7 - 15.5 gm/dL [facility] Hematocrit 29.7(L) 35.7 - 45.8 % [facility] MCV 99.3(H) 82.6 - 94.4 fL [facility] MCH 32.1(H) 27.1 - 32.0 pg [facility] MCHC 32.3 31.7 - 35.0 gm/dL [facility] Platelets 114(L) 145 - 357 x10(3)/[facility] RDWSD 44.5 37.0 - 46.0 [facility] LABORATORY RDWCV 12.0 11.5 - 14.1 % [facility] MPV 11.5 7.6 - 12.9 [facility] LABORATORY nRBC % Auto 0.0 % [facility] nRBC Abs Auto 0.000 0.000 - 0.000 x10(3)/[facility] LABORATORY Blood specimen (specimen) 01/22/2021 3:22 AM EDT 01/22/2021 4:03 AM EDT Narrative Resulting Agency Comment Spec In Lab Freddie Montes MD HEMATOLOGY ORDERABLE S [facility] [place] [address] * Magnesium (01/22/2021 3:22 AM EDT) Pathologist [facility] Magnesium 0.94 0.69 - 1.07 mmol/L [facility] Blood specimen (specimen) 01/22/2021 3:22 AM EDT 01/22/2021 4:03 AM EDT Narrative Resulting Agency Comment Spec In Lab Katt Dumont MD CHEMISTRY ORDERABLES [facility] [place] [address] * (ABNORMAL) Basic Metabolic Panel (non-fasting) (01/22/2021 3:22 AM EDT) Glucose Lvl 118 65 - 199 mg/dL [facility] Comment:Diabetes: >=200 mg/d L plus symptoms BUN 36(H) 8 - 18 mg/dL [facility] Creatinine 2.11(H) 0.70 - 1.20 mg/dL [facility] Sodium 130(L) 135 - 145 mmol/L [facility] Potassium 4.2 3.5 - 5.0 mmol/L [facility] Comment: Please note: ??Patients with WBC >100,000 may have falsely elevated Potassium levels. ??For accurate Potassium quantification in these patients send serum separator tube (gold top) for subsequent determinations. ??Contact the Clinical Chemistry Laboratory if there are any questions. Chloride 96(L) 98 - 107 mmol/L [facility] CO2 27 22 - 31 mmol/L [facility] Anion Gap 7 5 - 15 mmol/L [facility] Calcium 8.6 8.5 - 10.5 mg/dL [facility] Estimated GFR 24(L) >=60 mL/min/1. 73 m?? [facility] Dumont MD CHEMISTRY ORDERABLES Performing Organization Address City/[facility]/ZIP Co de Phone Number [facility] [place] [address] * POCT Glucose (01/22/2021 2:59 AM EDT) POC Glucose 120 65 - 199 mg/dL [facility] Comment: Supplemental ranges: <140 mg/dL before meals <180 mg/dL all other times of the day Blood specimen (specimen) 01/22/2021 2:59 AM EDT 01/22/2021 2:59 AM EDT Travis Callahan MD POINT OF CARE TEST O RDERABLES Performing Organization Address [facility] Co de Phone Number [facility] [place] [address] * POCT Glucose (01/21/2021 11:36 PM EDT) POC Glucose 120 65 - 199 mg/dL [facility] Comment: Supplemental ranges: <140 mg/dL before meals <180 mg/dL all other times of the day Blood specimen (specimen) 01/21/2021 11:36 PM EDT 01/21/2021 11:36 PM EDT Travis Callahan MD POINT OF CARE TEST O RDERAMARIE Performing Organization Address City/[facility]/ZIP Co de Phone Number [facility] [place] [address] * POCT Glucose (01/21/2021 7:46 PM EDT) POC Glucose 133 65 - 199 mg/dL [facility] Comment: Supplemental ranges: <140 mg/dL before meals <180 mg/dL all other times of the day Blood specimen (specimen) 01/21/2021 7:46 PM EDT 01/21/2021 7:46 PM EDT Travis Callahan MD POINT OF CARE TEST O RDERABLES Performing Organization Address City/[facility]/ZIP Co de Phone Number [facility] [place] [address] * POCT Glucose (01/21/2021 3:32 PM EDT) POC Glucose 140 65 - 199 mg/dL [facility] Comment: Supplemental ranges: <140 mg/dL before meals <180 mg/dL all other times of the day Blood specimen (specimen) 01/21/2021 3:32 PM EDT 01/21/2021 3:32 PM EDT Travis Callahan MD POINT OF CARE TEST O RDERAMARIE Performing Organization Address [facility] Co de Phone Number [facility] [place] [address] * POCT Glucose (01/21/2021 11:38 AM EDT) POC Glucose 92 65 - 199 mg/dL [facility] Comment: Supplemental ranges: <140 mg/dL before meals <180 mg/dL all other times of the day Blood specimen (specimen) 01/21/2021 11:38 AM EDT 01/21/2021 11:38 AM EDT Travis Callahan MD POINT OF CARE TEST O RDERABLES Performing Organization Address City/[facility] Co de Phone Number [facility] [place] [address] * (ABNORMAL) BMP w/fasting Glucose (01/21/2021 11:37 AM EDT) Glucose Fasting 109(H) 65 - 99 mg/dL [facility] Comment: ?Fasting* Glucose Interpretive Criteria [...] of Diabetes Mellitus, Position Statement from the [place] [employer]. ??Diabetes Care, Volume 33, Supplement 1, Oct 2009 BUN 30(H) 8 - 18 mg/dL [facility] Creatinine 1.95(H) 0.70 - 1.20 mg/dL [facility] Sodium 133(L) 135 - 145 mmol/L [facility] Potassium 3.6 3.5 - 5.0 mmol/L [facility] Comment: Please note: ??Patients with WBC >100,000 may have falsely elevated Potassium levels. ??For accurate Potassium quantification in these patients send serum separator tube (gold top) for subsequent determinations. ??Contact the Clinical Chemistry Laboratory if there are any questions. Chloride 95(L) 98 - 107 mmol/L [facility] CO2 27 22 - 31 mmol/L [facility] Anion Gap 11 5 - 15 mmol/L [facility] Calcium 9.2 8.5 - 10.5 mg/dL [facility] Estimated GFR 26(L) >=60 mL/min/1. 73 m?? [facility] [...] Callahan MD CHEMISTRY ORDERABLES Performing Organization Address [facility] Co de Phone Number [facility] [place] [address] * POCT Glucose (01/21/2021 7:54 AM EDT) [facility] POC Glucose 105 65 - 199 mg/dL [facility] Comment: Supplemental ranges: <140 mg/dL before meals <180 mg/dL all other times of the day Blood specimen (specimen) 01/21/2021 7:54 AM EDT 01/21/2021 7:54 AM EDT Travis Callahan MD POINT OF CARE TEST O RDERABLES Performing Organization Address [facility] Co de Phone Number [facility] [place] [address] * Scan, Peripheral Blood (01/21/2021 4:43 AM EDT) [facility] Plat Estimate Decreased [facility] RBC Morphology Normal [facility] Blood specimen (specimen) 01/21/2021 4:43 AM EDT 01/21/2021 4:50 AM EDT Narrative Resulting Agency Comment Spec In Lab Freddie Montes MD HEMATOLOGY ORDERABLE S Performing Organization Address [facility] Co de Phone Number [facility] [place] [address] * (ABNORMAL) Differential, Automated (01/21/2021 4:43 AM EDT) [facility] Neutrophils % 86.5 % [facility] Neutr Abs (ANC) 14.20(H) 1.70 - 6.10 x10(3)/[facility] LABORATORY Lymphocytes % 6.0 % [facility] Lymphocytes Abs 1.0 0.9 - 3.2 x10(3)/[facility] LABORATORY Monocytes % 6.5 % [facility] Monocyte Abs 1.1(H) 0.3 - 0.9 x10(3)/[facility] LABORATORY Eosinophils % 0.1 % [facility] Eosinophils Abs 0.0 0.0 - 0.4 x10(3)/[facility] LABORATORY Basophils % 0.4 % [facility] Basophils Abs 0.1 0.0 - 0.1 x10(3)/[facility] LABORATORY Immature Gran % 0.50 % [facility] Comment: Immature granulocytes(IG's)percentage and absolute count will include metamyelocytes, myelocytes, and promyelocytes. Blood smears from CBCs yielding IG's will be scanned manually for concordance. If this scan disagrees with the automated IG or if promyelocytes are noted, a manual differential will be performed. Anya Gran Abs 0.08(H) 0.00 - 0.04 x10(3)/[facility] LABORATORY Blood specimen (specimen) 01/21/2021 4:43 AM EDT 01/21/2021 4:50 AM EDT Narrative Resulting Agency Comment Spec In Lab Freddie Montes MD HEMATOLOGY ORDERABLE S [facility] [place] [address] * (ABNORMAL) Hemogram (01/21/2021 4:43 AM EDT) WBC 16.4(H) 4.0 - 9.5 x10(3)/[facility] LABORATORY RBC 3.19(L) 4.00 - 5.21 x10(6)/[facility] LABORATORY Hemoglobin 10.5(L) 11.7 - 15.5 gm/dL [facility] Hematocrit 30.9(L) 35.7 - 45.8 % [facility] MCV 96.9(H) 82.6 - 94.4 [facility] LAB[facility]ORY MCH 32.9(H) 27.1 - 32.0 pg [facility] MCHC 34.0 31.7 - 35.0 gm/dL [facility] Platelets 92(L) 145 - 357 x10(3)/[facility] LABORATORY RDWSD 42.7 37.0 - 46.0 [facility] RDWCV 11.9 11.5 - 14.1 % [facility] MPV 11.1 7.6 - 12.9 [facility] LABORATORY nRBC % Auto 0.0 % [facility] nRBC Abs Auto 0.000 0.000 - 0.000 x10(3)/[facility] LABORATORY Blood specimen (specimen) 01/21/2021 4:43 AM EDT 01/21/2021 4:50 AM EDT Narrative Resulting Agency Comment Spec In Lab Freddie Montes MD HEMATOLOGY ORDERABLE S Performing Organization Address City/[facility]/ZIP Co de Phone Number [facility] [place] [address] * Magnesium (01/21/2021 4:43 AM EDT) Magnesium 0.89 0.69 - 1.07 mmol/L [facility] Blood specimen (specimen) 01/21/2021 4:43 AM EDT 01/21/2021 4:50 AM EDT Narrative Resulting Agency Comment Spec In Lab Katt Dumont MD CHEMISTRY ORDERABLES [facility] [place] [address] * (ABNORMAL) Basic Metabolic Panel (non-fasting) (01/21/2021 4:43 AM EDT) Glucose Lvl 102 65 - 199 mg/dL [facility] Comment:Diabetes: >=200 mg/d L plus symptoms BUN 28(H) 8 - 18 mg/dL [facility] Creatinine 1.79(H) 0.70 - 1.20 mg/dL [facility] Sodium 131(L) 135 - 145 mmol/L [facility] Potassium 4.4 3.5 - 5.0 mmol/L [facility] Comment: Please note: ??Patients with WBC >100,000 may have falsely elevated Potassium levels. ??For accurate Potassium quantification in these patients send serum separator tube (gold top) for subsequent determinations. ??Contact the Clinical Chemistry Laboratory if there are any questions. Chloride 97(L) 98 - 107 mmol/L [facility] CO2 25 22 - 31 mmol/L [facility] Anion Gap 9 5 - 15 mmol/L [facility] Calcium 8.7 8.5 - 10.5 mg/dL [facility] Estimated GFR 29(L) >=60 mL/min/1. 73 m?? [facility] Dumont MD CHEMISTRY ORDERABLES Performing Organization Address [facility]/ZIP Co de Phone Number [facility] [place] [address] * POCT Glucose (01/21/2021 3:19 AM EDT) POC Glucose 118 65 - 199 mg/dL [facility] Comment: Supplemental ranges: <140 mg/dL before meals <180 mg/dL all other times of the day Blood specimen (specimen) 01/21/2021 3:19 AM EDT 01/21/2021 3:19 AM EDT Travis Callahan MD POINT OF CARE TEST O RDERABLES Performing Organization Address [facility] Co de Phone Number [facility] [place] [address] * POCT Glucose (01/20/2021 11:19 PM EDT) POC Glucose 115 65 - 199 mg/dL [facility] Comment: Supplemental ranges: <140 mg/dL before meals <180 mg/dL all other times of the day Blood specimen (specimen) 01/20/2021 11:19 PM EDT 01/20/2021 11:19 PM EDT Travis Callahan MD POINT OF CARE TEST O RDERABLES Performing Organization Address [facility]/ZIP Co de Phone Number [facility] [place] [address] * POCT Glucose (01/20/2021 7:35 PM EDT) POC Glucose 119 65 - 199 mg/dL [facility] Comment: Supplemental ranges: <140 mg/dL before meals <180 mg/dL all other times of the day Blood specimen (specimen) 01/20/2021 7:35 PM EDT 01/20/2021 7:35 PM EDT Travis Callahan MD POINT OF CARE TEST O RDERABLES Performing Organization Address City/[facility]/ZIP Co de Phone Number [facility] [place] [address] * POCT Glucose (01/20/2021 4:05 PM EDT) POC Glucose 181 65 - 199 mg/dL [facility] Comment: Supplemental ranges: <140 mg/dL before meals <180 mg/dL all other times of the day Blood specimen (specimen) 01/20/2021 4:05 PM EDT 01/20/2021 4:05 PM EDT Travis Callahan MD POINT OF CARE TEST O RDERAMARIE Performing Organization Address [facility]/ZIP Co de Phone Number [facility] [place] [address] * POCT Glucose (01/20/2021 11:30 AM EDT) POC Glucose 152 65 - 199 mg/dL [facility] Comment: Supplemental ranges: <140 mg/dL before meals <180 mg/dL all other times of the day Blood specimen (specimen) 01/20/2021 11:30 AM EDT 01/20/2021 11:30 AM EDT Travis Callahan MD POINT OF CARE TEST O RDERAMARIE Performing Organization Address City/[facility]/ZIP Co de Phone Number [facility] [place] [address] * POCT Glucose (01/20/2021 6:52 AM EDT) POC Glucose 155 65 - 199 mg/dL [facility] Comment: Supplemental ranges: <140 mg/dL before meals <180 mg/dL all other times of the day Blood specimen (specimen) 01/20/2021 6:52 AM EDT 01/20/2021 6:52 AM EDT Travis Callahan MD POINT OF CARE TEST O RDERABLES [facility] [place] [address] * (ABNORMAL) Differential, Automated (01/20/2021 4:19 AM EDT) Neutrophils % 83.9 % [facility] Neutr Abs (ANC) 16.88(H) 1.70 - 6.10 x10(3)/[facility] LABORATORY Lymphocytes % 8.4 % [facility] Lymphocytes Abs 1.7 0.9 - 3.2 x10(3)/[facility] LABORATORY Monocytes % 5.4 % [facility] Monocyte Abs 1.1(H) 0.3 - 0.9 x10(3)/[facility] LABORATORY Eosinophils % 0.0 % [facility] Eosinophils Abs 0.0 0.0 - 0.4 x10(3)/[facility] LABORATORY Basophils % 0.1 % [facility] Basophils Abs 0.0 0.0 - 0.1 x10(3)/[facility] LABORATORY Immature Gran % 2.20 % [facility] Comment: Immature granulocytes(IG's)percentage and absolute count will include metamyelocytes, myelocytes, and promyelocytes. Blood smears from CBCs yielding IG's will be scanned manually for concordance. If this scan disagrees with the automated IG or if promyelocytes are noted, a manual differential will be performed. Anya Gran Abs 0.44(H) 0.00 - 0.04 x10(3)/[facility] LABORATORY Blood specimen (specimen) 01/20/2021 4:19 AM EDT 01/20/2021 4:38 AM EDT Narrative Resulting Agency Comment Spec In Lab Freddie Montes MD [place] [address] * (ABNORMAL) Hemogram (01/20/2021 4:19 AM EDT) Pathologist [facility] WBC 20.1(H) 4.0 - 9.5 x10(3)/[facility] RBC 3.58(L) 4.00 - 5.21 x10(6)/[facility] LABORATORY Hemoglobin 11.4(L) 11.7 - 15.5 gm/dL [facility] Hematocrit 34.0(L) 35.7 - 45.8 % [facility] MCV 95.0(H) 82.6 - 94.4 [facility] LABORATORY MCH 31.8 27.1 - 32.0 pg [facility] MCHC 33.5 31.7 - 35.0 gm/dL [facility] Platelets 134(L) 145 - 357 x10(3)/[facility] RDWSD 41.2 37.0 - 46.0 [facility] RDWCV 11.9 11.5 - 14.1 % [facility] LABORATORY MPV 11.0 7.6 - 12.9 [facility] LABORATORY nRBC % Auto 0.0 % [facility] LABORATORY nRBC Abs Auto 0.000 0.000 - 0.000 x10(3)/[facility] LABORATORY Blood specimen (specimen) 01/20/2021 4:19 AM EDT 01/20/2021 4:38 AM EDT Narrative Resulting Agency Comment Spec In Lab Freddie Montes MD [place] [address] * Magnesium (01/20/2021 4:19 AM EDT) Pathologist [facility] Magnesium 0.69 0.69 - 1.07 mmol/L [facility] LABOR[facility] Blood specimen (specimen) 01/20/2021 4:19 AM EDT 01/20/2021 4:38 AM EDT Narrative Resulting Agency Comment Spec In Lab Katt Dumont MD CHEMISTRY ORDERABLES [facility] [place] [address] * (ABNORMAL) Basic Metabolic Panel (non-fasting) (01/20/2021 4:19 AM EDT) Glucose Lvl 136 65 - 199 mg/dL [facility] Comment:Diabetes: >=200 mg/d L plus symptoms BUN 19(H) 8 - 18 mg/dL [facility] Creatinine 1.06 0.70 - 1.20 mg/dL [facility] Sodium 132(L) 135 - 145 mmol/L [facility] Potassium 3.5 3.5 - 5.0 mmol/L [facility] Comment: Please note: ??Patients with WBC >100,000 may have falsely elevated Potassium levels. ??For accurate Potassium quantification in these patients send serum separator tube (gold top) for subsequent determinations. ??Contact the Clinical Chemistry Laboratory if there are any questions. Chloride 97(L) 98 - 107 mmol/L [facility] CO2 27 22 - 31 mmol/L [facility] Anion Gap 8 5 - 15 mmol/L [facility] Calcium 9.1 8.5 - 10.5 mg/dL [facility] Estimated GFR 54(L) >=60 mL/min/1. 73 m?? [facility] [...] Dumont MD CHEMISTRY ORDERABLES Performing Organization Address City/[facility]/ZIP Co de Phone Number [facility] [place] [address] * POCT Glucose (01/20/2021 4:12 AM EDT) POC Glucose 128 65 - 199 mg/dL [facility] Comment: Supplemental ranges: <140 mg/dL before meals <180 mg/dL all other times of the day Blood specimen (specimen) 01/20/2021 4:12 AM EDT 01/20/2021 4:12 AM EDT Travis Callahan MD POINT OF CARE TEST O RDERABLES Performing Organization Address [facility]/ZIP Co de Phone Number [facility] [place] [address] * POCT Glucose (01/19/2021 11:19 PM EDT) POC Glucose 138 65 - 199 mg/dL [facility] Comment: Supplemental ranges: <140 mg/dL before meals <180 mg/dL all other times of the day Blood specimen (specimen) 01/19/2021 11:19 PM EDT 01/19/2021 11:19 PM EDT Travis Callahan MD POINT OF CARE TEST O RDERABLES Performing Organization Address City/[facility]/ZIP Co de Phone Number [facility] [place] [address] * POCT Glucose (01/19/2021 8:53 PM EDT) POC Glucose 139 65 - 199 mg/dL [facility] Comment: Supplemental ranges: <140 mg/dL before meals <180 mg/dL all other times of the day Blood specimen (specimen) 01/19/2021 8:53 PM EDT 01/19/2021 8:53 PM EDT Travis Callahan MD POINT OF CARE TEST O RDERABLES Performing Organization Address City/State/[facility] Co de Phone Number [facility] [place] [address] * CT Abdomen & Pelvis w Contrast [...] who have questions please contact the health wound care physician that requested your imaging first. ? Electronically signed by: Robert Ding [facility] ([phone]), at 01/19/2021 5:41 PM Narrative 01/19/2021 5:41 [...] administration of contrast. Administered 88.0 ml of [id number] mg/ml. Oral contrast was administered. COMPARISON: None FINDINGS: Lower chest: Normal. Liver: Normal size and attenuation without lesions. Bile ducts: Nondilated. The CBD is measuring approximately 7 mm. Thereis minimal approximately 2 mm calcification projecting at the distal aspectof the CBD, secondary to residual choledocholithiasis (seen on image 67, [id number]) Gallbladder: Surgically absent. Pancreas: Normal attenuation without [...] patients who have questions please contactthe health wound care physician that requested your imaging first. Electronically signed by: Robert Ding [facility]([phone]), at 01/19/2021 5:41 PM Travis Callahan MD IMG CT ORDERABLES * POCT Glucose (01/19/2021 4:18 PM EDT) POC Glucose 162 65 - 199 mg/dL [facility] Comment: Supplemental ranges: <140 mg/dL before meals <180 mg/dL all other times of the day Blood specimen (specimen) 01/19/2021 4:18 PM EDT 01/19/2021 4:18 PM EDT Travis Callahan MD POINT OF CARE TEST O RDERAMARIE Performing Organization Address [facility]/ZIP Co de Phone Number [facility] [place] [address] * POCT Glucose (01/19/2021 11:11 AM EDT) POC Glucose 168 65 - 199 mg/dL [facility] Comment: Supplemental ranges: <140 mg/dL before meals <180 mg/dL all other times of the day Blood specimen (specimen) 01/19/2021 11:11 AM EDT 01/19/2021 11:11 AM EDT Travis Callahan MD POINT OF CARE TEST O MAUREEN [facility] [place] [address] * POCT Glucose (01/19/2021 6:40 AM EDT) POC Glucose 186 65 - 199 mg/dL [facility] Comment: Supplemental ranges: <140 mg/dL before meals <180 mg/dL all other times of the day Blood specimen (specimen) 01/19/2021 6:40 AM EDT 01/19/2021 6:40 AM EDT Travis Callahan MD POINT OF CARE TEST O MAUREEN Performing Organization Address City/[facility] Co de Phone Number [facility] [place] [address] * POCT Glucose (01/19/2021 4:12 AM EDT) Pathologist [facility] POC Glucose 155 65 - 199 mg/dL [facility] Comment: Supplemental ranges: <140 mg/dL before meals <180 mg/dL all other times of the day Blood specimen (specimen) 01/19/2021 4:12 AM EDT 01/19/2021 4:12 AM EDT Travis Callahan MD POINT OF CARE TEST O MAUREEN Performing Organization Address [facility] Co de Phone Number [facility] [place] [address] * (ABNORMAL) Differential, Automated (01/19/2021 3:06 AM EDT) Pathologist [facility] Neutrophils % 85.2 % [facility] LABORATORY Neutr Abs (ANC) 17.04(H) 1.70 - 6.10 x10(3)/mc L [facility] Lymphocytes % 7.7 % [facility] Lymphocytes Abs 1.6 0.9 - 3.2 x10(3)/mc L [facility] Monocytes % 6.3 % [facility] LABOR[facility] Monocyte Abs 1.3(H) 0.3 - 0.9 x10(3)/mc L [facility] Eosinophils % 0.0 % [facility]OR[facility] Eosinophils Abs 0.0 0.0 - 0.4 x10(3)/ L [facility] Basophils % 0.0 % [facility] Basophils Abs 0.0 0.0 - 0.1 x10(3)/ L [facility] Immature Gran % 0.80 % [facility] Comment: Immature granulocytes(IG's)percentage and absolute count will include metamyelocytes, myelocytes, and promyelocytes. Blood smears from CBCs yielding IG's will be scanned manually for concordance. If this scan disagrees with the automated IG or if promyelocytes are noted, a manual differential will be performed. Anya Gran Abs 0.17(H) 0.00 - 0.04 x10(3)/[facility] LABORATORY Blood specimen (specimen) 01/19/2021 3:06 AM EDT 01/19/2021 3:19 AM EDT Narrative Resulting Agency Comment Spec In Lab Freddie Montes MD HEMATOLOGY ORDERABLE S [facility] [place] [address] * (ABNORMAL) Hemogram (01/19/2021 3:06 AM EDT) WBC 20.0(H) 4.0 - 9.5 x10(3)/[facility] LABORATORY RBC 3.98(L) 4.00 - 5.21 x10(6)/[facility] LABORATORY Hemoglobin 12.9 11.7 - 15.5 gm/dL [facility] Hematocrit 37.3 35.7 - 45.8 % [facility] MCV 93.7 82.6 - 94.4 fL [facility] MCH 32.4(H) 27.1 - 32.0 pg [facility] MCHC 34.6 31.7 - 35.0 gm/dL [facility] Platelets 149 145 - 357 x10(3)/[facility] LABORATORY RDWSD 40.5 37.0 - 46.0 fL [facility] RDWCV 11.8 11.5 - 14.1 % [facility] MPV 11.0 7.6 - 12.9 [facility] LABORATORY nRBC % Auto 0.0 % [facility] nRBC Abs Auto 0.000 0.000 - 0.000 x10(3)/mcL [facility] Blood specimen (specimen) 01/19/2021 3:06 AM EDT 01/19/2021 3:19 AM EDT Narrative Resulting Agency Comment Spec In Lab Freddie Montes MD HEMATOLOGY ORDERABLE S Performing Organization Address City/[facility]/ZIP Co de Phone Number [facility] [place] [address] * (ABNORMAL) Magnesium (01/19/2021 3:06 AM EDT) Magnesium 0.57(L) 0.69 - 1.07 mmol/L [facility] Blood specimen (specimen) 01/19/2021 3:06 AM EDT 01/19/2021 3:20 AM EDT Narrative Resulting Agency Comment Spec In Lab Katt Dumont MD CHEMISTRY ORDERABLES Performing Organization Address City/[facility]/ZIP Co de Phone Number [facility] [place] [address] * (ABNORMAL) Lipase (01/19/2021 3:06 AM EDT) Lipase 891(H) 0 - 60 unit/L [facility] Comment:result rechecked-KS Blood specimen (specimen) 01/19/2021 3:06 AM EDT 01/19/2021 3:20 AM EDT Narrative Resulting Agency Comment Spec In Lab Katt Dumont MD CHEMISTRY ORDERABLES [facility] [place] [address] * (ABNORMAL) Basic Metabolic Panel (non-fasting) (01/19/2021 3:06 AM EDT) Glucose Lvl 169 65 - 199 mg/dL [facility] Comment:Diabetes: >=200 mg/d L plus symptoms BUN 25(H) 8 - 18 mg/dL [facility] Creatinine 0.98 0.70 - 1.20 mg/dL [facility] Sodium 135 135 - 145 mmol/L [facility] Potassium 3.6 3.5 - 5.0 mmol/L [facility] Comment: Please note: ??Patients with WBC >100,000 may have falsely elevated Potassium levels. ??For accurate Potassium quantification in these patients send serum separator tube (gold top) for subsequent determinations. ??Contact the Clinical Chemistry Laboratory if there are any questions. Chloride 101 98 - 107 mmol/L [facility] CO2 25 22 - 31 mmol/L [facility] Anion Gap 9 5 - 15 mmol/L [facility] Calcium 9.2 8.5 - 10.5 mg/dL [facility] Estimated GFR 60 >=60 mL/min/1. 73 m?? [facility] In Lab Katt Dumont MD CHEMISTRY ORDERABLES [facility] [place] [address] * (ABNORMAL) Hemoglobin A1c (01/19/2021 3:06 AM EDT) Hemoglobin A1C 7.0(H) 4.3 - 5.6 % [facility] Comment: Reference Range: 4.3 - [...] 36: Suppl. 1, [id number] Est Avg Gluc 156 mg/dL [facility] LABORATORY Comment: eAG equivalents for HbA1c [...] into estimated average glucose values. ??[facility]abetes [facility] 2008:31(8):3736-4886. Blood specimen (specimen) 01/19/2021 3:06 AM EDT 01/19/2021 3:21 AM EDT Narrative Resulting Agency Comment Spec In Lab Travis Callahan MD CHEMISTRY ORDERABLES Performing Organization Address [facility] Co de Phone Number [facility] [place] [address] * POCT Glucose (01/19/2021 12:42 AM EDT) POC Glucose 173 65 - 199 mg/dL [facility] Comment: Supplemental ranges: <140 mg/dL before meals <180 mg/dL all other times of the day Blood specimen (specimen) 01/19/2021 12:42 AM EDT 01/19/2021 12:42 AM EDT Travis Callahan MD POINT OF CARE TEST O RDERAMARIE Performing Organization Address [facility] Co de Phone Number [facility] [place] [address] * (ABNORMAL) POCT Glucose (01/18/2021 8:59 PM EDT) POC Glucose 205(H) 65 - 199 mg/dL [facility] Comment: Supplemental ranges: <140 mg/dL before meals <180 mg/dL all other times of the day Blood specimen (specimen) 01/18/2021 8:59 PM EDT 01/18/2021 8:59 PM EDT Travis Callahan MD POINT OF CARE TEST O RDWILLIAM Performing Organization Address [facility] Co de Phone Number [facility] [place] [address] * (ABNORMAL) POCT Glucose (01/18/2021 3:56 PM EDT) POC Glucose 220(H) 65 - 199 mg/dL [facility] Comment: Supplemental ranges: <140 mg/dL before meals <180 mg/dL all other times of the day Blood specimen (specimen) 01/18/2021 3:56 PM EDT 01/18/2021 3:56 PM EDT Travis Callahan MD POINT OF CARE TEST O RDERABLES Performing Organization Address City/[facility]/ZIP Co de Phone Number [facility] [place] [address] * (ABNORMAL) POCT Glucose (01/18/2021 11:28 AM EDT) POC Glucose 226(H) 65 - 199 mg/dL [facility] Comment: Supplemental ranges: <140 mg/dL before meals <180 mg/dL all other times of the day Blood specimen (specimen) 01/18/2021 11:28 AM EDT 01/18/2021 11:28 AM EDT Travis Callahan MD POINT OF CARE TEST O RDERAMARIE Performing Organization Address [facility] Co de Phone Number [facility] [place] [address] * (ABNORMAL) POCT Glucose (01/18/2021 6:36 AM EDT) POC Glucose 234(H) 65 - 199 mg/dL [facility] Comment: Supplemental ranges: <140 mg/dL before meals <180 mg/dL all other times of the day Blood specimen (specimen) 01/18/2021 6:36 AM EDT 01/18/2021 6:36 AM EDT Eliel Leigh MD POINT OF CARE TEST O RDERABLES Performing Organization Address City/[facility]/ZIP Co de Phone Number [facility] [place] [address] * (ABNORMAL) Differential, Automated (01/18/2021 4:00 AM EDT) Neutrophils % 85.1 % [facility] Neutr Abs (ANC) 11.17(H) 1.70 - 6.10 x10(3)/[facility] LABORATORY Lymphocytes % 8.8 % [facility] Lymphocytes Abs 1.2 0.9 - 3.2 x10(3)/[facility] LABORATORY Monocytes % 5.5 % [facility] Monocyte Abs 0.7 0.3 - 0.9 x10(3)/[facility] LABORATORY Eosinophils % 0.0 % [facility] Eosinophils Abs 0.0 0.0 - 0.4 x10(3)/[facility] LABORATORY Basophils % 0.1 % [facility] Basophils Abs 0.0 0.0 - 0.1 x10(3)/[facility] LABORATORY Immature Gran % 0.50 % [facility] Comment: Immature granulocytes(IG's)percentage and absolute count will include metamyelocytes, myelocytes, and promyelocytes. Blood smears from CBCs yielding IG's will be scanned manually for concordance. If this scan disagrees with the automated IG or if promyelocytes are noted, a manual differential will be performed. Anya Gran Abs 0.07(H) 0.00 - 0.04 x10(3)/[facility] LABORATORY Blood specimen (specimen) 01/18/2021 4:00 AM EDT 01/18/2021 4:22 AM EDT Narrative Resulting Agency Comment Spec In Lab Freddie Montes MD HEMATOLOGY ORDERABLE S [facility] [place] [address] * (ABNORMAL) Hemogram (01/18/2021 4:00 AM EDT) WBC 13.1(H) 4.0 - 9.5 x10(3)/[facility] LABORATORY RBC 4.33 4.00 - 5.21 x10(6)/[facility] LABORATORY Hemoglobin 13.9 11.7 - 15.5 gm/dL [facility] Hematocrit 39.9 35.7 - 45.8 % [facility] MCV 92.1 82.6 - 94.4 [facility] LABORATORY MCH 32.1(H) 27.1 - 32.0 pg [facility] MCHC 34.8 31.7 - 35.0 gm/dL [facility] Platelets 180 145 - 357 x10(3)/[facility] LABORATORY RDWSD 39.2 37.0 - 46.0 fL [facility] RDWCV 11.7 11.5 - 14.1 % [facility] MPV 10.8 7.6 - 12.9 [facility] LABORATORY nRBC % Auto 0.0 % [facility] nRBC Abs Auto 0.000 0.000 - 0.000 x10(3)/[facility] LABORATORY Blood specimen (specimen) 01/18/2021 4:00 AM EDT 01/18/2021 4:22 AM EDT Narrative Resulting Agency Comment Spec In Lab Freddie Montes MD HEMATOLOGY ORDERABLE S Performing Organization Address City/[facility]/ZIP Co de Phone Number [facility] [place] [address] * (ABNORMAL) Magnesium (01/18/2021 4:00 AM EDT) Magnesium 0.59(L) 0.69 - 1.07 mmol/L [facility] Blood specimen (specimen) 01/18/2021 4:00 AM EDT 01/18/2021 4:22 AM EDT Narrative Resulting Agency Comment Spec In Lab Katt Dumont MD CHEMISTRY ORDERABLES Performing Organization Address City/[facility]/ZIP Co de Phone Number [facility] [place] [address] * (ABNORMAL) Lipase (01/18/2021 4:00 AM EDT) Lipase >3,000(H) 0 - 60 unit/L [facility] Blood specimen (specimen) 01/18/2021 4:00 AM EDT 01/18/2021 4:22 AM EDT Narrative Resulting Agency Comment Spec In Lab Katt Dumont MD CHEMISTRY ORDERABLES [facility] [place] [address] * (ABNORMAL) Basic Metabolic Panel (non-fasting) (01/18/2021 4:00 AM EDT) Glucose Lvl 229(H) 65 - 199 mg/dL [facility] Comment:Diabetes: >=200 mg/d L plus symptoms BUN 34(H) 8 - 18 mg/dL [facility] Creatinine 1.24(H) 0.70 - 1.20 mg/dL [facility] Sodium 137 135 - 145 mmol/L [facility] Potassium 3.9 3.5 - 5.0 mmol/L [facility] Comment: Please note: ??Patients with WBC >100,000 may have falsely elevated Potassium levels. ??For accurate Potassium quantification in these patients send serum separator tube (gold top) for subsequent determinations. ??Contact the Clinical Chemistry Laboratory if there are any questions. Chloride 103 98 - 107 mmol/L [facility] CO2 20(L) 22 - 31 mmol/L [facility] Anion Gap 14 5 - 15 mmol/L [facility] Calcium 9.9 8.5 - 10.5 mg/dL [facility] Estimated GFR 45(L) >=60 mL/min/1. 73 m?? [facility] [...] Dumont MD CHEMISTRY ORDERABLES Performing Organization Address [facility] Co de Phone Number [facility] [place] [address] * (ABNORMAL) POCT Glucose (01/18/2021 3:58 AM EDT) POC Glucose 232(H) 65 - 199 mg/dL [facility] Comment: Supplemental ranges: <140 mg/dL before meals <180 mg/dL all other times of the day Blood specimen (specimen) 01/18/2021 3:58 AM EDT 01/18/2021 3:58 AM EDT Eliel Leigh MD POINT OF CARE TEST O MAUREEN Performing Organization Address [facility] Co de Phone Number [facility] [place] [address] * (ABNORMAL) POCT Glucose (01/17/2021 11:27 PM EDT) POC Glucose 253(H) 65 - 199 mg/dL [facility] Comment: Supplemental ranges: <140 mg/dL before meals <180 mg/dL all other times of the day Blood specimen (specimen) 01/17/2021 11:27 PM EDT 01/17/2021 11:27 PM EDT Eliel Leigh MD POINT OF CARE TEST O MAUREEN [facility] [place] [address] * COVID-19 PCR (01/17/2021 10:22 PM EDT) SARS-CoV-2 RNA PCR Not Detected Not Detected [facility] Comment: This result should be [...] using the Simplex[employer] COVID-19 Direct Assay by [employer] as authorized by the FDA issued Emergency [...] Department of Pathology and Laboratory Medicine at [facility], certified under the Clinical Laboratory [...] fact sheets at the following FDA website: https://www.fda.gov/medical-devices/zpjkjgfrrwu-ssjhxvn-1539-ytbjk-04-cwfwuidep- use-a ozlnjrqfbxcqs-vuyaygu-vgjxuvu/gfupf-blnochlurdv-hwol SARS-CoV-2 Source [employer] MA R[facility] Nasopharyngeal swab (specimen) 01/17/2021 10:22 PM EDT 01/17/2021 11:10 PM EDT Comment:Symptoms->Surveillan ce Narrative Resulting Agency Comment Spec In Lab Katt Dumont MD MICROBIOLOGY - GENER AL ORDERABLES [facility] [place] [address] * (ABNORMAL) Differential, Automated (01/17/2021 8:51 PM EDT) Neutrophils % 91.0 % [facility] Neutr Abs (ANC) 12.57(H) 1.70 - 6.10 x10(3)/mc L [facility] Lymphocytes % 5.4 % [facility] Lymphocytes Abs 0.8(L) 0.9 - 3.2 x10(3)/mc L [facility] Monocytes % 3.2 % [facility] Monocyte Abs 0.4 0.3 - 0.9 x10(3)/mc L [facility] Eosinophils % 0.0 % [facility] Eosinophils Abs 0.0 0.0 - 0.4 x10(3)/mc L [facility] Basophils % 0.1 % [facility] Basophils Abs 0.0 0.0 - 0.1 x10(3)/mc L [facility] Immature Gran % 0.30 % [facility] Comment: Immature granulocytes(IG's)percentage and absolute count will include metamyelocytes, myelocytes, and promyelocytes. Blood smears from CBCs yielding IG's will be scanned manually for concordance. If this scan disagrees with the automated IG or if promyelocytes are noted, a manual differential will be performed. Anya Gran Abs 0.04 0.00 - 0.04 x10(3)/ L [facility] Blood specimen (specimen) 01/17/2021 8:51 PM EDT 01/17/2021 8:54 PM EDT Narrative Resulting Agency Comment Spec In Lab Freddie Montes MD HEMATOLOGY ORDERABLE S Performing Organization Address City/State/[facility] Co de Phone Number [facility] [place] [address] * (ABNORMAL) Hemogram (01/17/2021 8:51 PM EDT) WBC 13.8(H) 4.0 - 9.5 x10(3)/[facility] LABORATORY RBC 4.44 4.00 - 5.21 x10(6)/[facility] LABORATORY Hemoglobin 14.2 11.7 - 15.5 gm/dL [facility] Hematocrit 41.2 35.7 - 45.8 % [facility] MCV 92.8 82.6 - 94.4 [facility] LABORATORY MCH 32.0 27.1 - 32.0 pg [facility] MCHC 34.5 31.7 - 35.0 gm/dL [facility] Platelets 186 145 - 357 x10(3)/[facility] LABORATORY RDWSD 39.9 37.0 - 46.0 [facility] LABORATORY RDWCV 11.7 11.5 - 14.1 % [facility] MPV 10.4 7.6 - 12.9 [facility] LABORATORY nRBC % Auto 0.0 % [facility] nRBC Abs Auto 0.000 0.000 - 0.000 x10(3)/[facility] LABORATORY Blood specimen (specimen) 01/17/2021 8:51 PM EDT 01/17/2021 8:54 PM EDT Narrative Resulting Agency Comment Spec In Lab Freddie Montes MD HEMATOLOGY ORDERABLE S Performing Organization Address [facility]/ZIP Co de Phone Number [facility] [place] [address] * (ABNORMAL) Lipase (01/17/2021 8:51 PM EDT) Lipase >3,000(H) 0 - 60 unit/L [facility] Blood specimen (specimen) 01/17/2021 8:51 PM EDT 01/17/2021 8:54 PM EDT Narrative Resulting Agency Comment Spec In Lab Katt Dumont MD CHEMISTRY ORDERABLES Performing Organization Address [facility]/ZIP Co de Phone Number [facility] [place] [address] * (ABNORMAL) Hepatic Function Panel (01/17/2021 8:51 PM EDT) Total Protein 8.1(H) 6.1 - 8.0 gm/dL [facility] Albumin 4.6 3.2 - 5.2 gm/dL [facility] AST 224(H) 0 - 30 unit/L [facility] ALT 152(H) 0 - 30 unit/L [facility] Alk Phos 111(H) 35 - 105 unit/L [facility] Total Bilirubin 0.6 0.2 - 1.3 mg/dL [facility] Bili, Direct 0.3 0.0 - 0.3 mg/dL [facility] Blood specimen (specimen) 01/17/2021 8:51 PM EDT 01/17/2021 8:54 PM EDT Narrative Resulting Agency Comment Spec In Lab Katt Dumont MD CHEMISTRY ORDERABLES [facility] [place] [address] * Phosphorus (01/17/2021 8:51 PM EDT) Phosphorus 3.5 2.5 - 4.5 mg/dL [facility] Blood specimen (specimen) 01/17/2021 8:51 PM EDT 01/17/2021 8:54 PM EDT Narrative Resulting Agency Comment Spec In Lab Katt Dumont MD CHEMISTRY ORDERABLES Performing Organization Address [facility] Co de Phone Number [facility] [place] [address] * (ABNORMAL) Magnesium (01/17/2021 8:51 PM EDT) Magnesium 0.63(L) 0.69 - 1.07 mmol/L [facility] Blood specimen (specimen) 01/17/2021 8:51 PM EDT 01/17/2021 8:54 PM EDT Narrative Resulting Agency Comment Spec In Lab Katt Dumont MD CHEMISTRY ORDERABLES Performing Organization Address [facility]/ZIP Co de Phone Number [facility] [place] [address] * Calcium (01/17/2021 8:51 PM EDT) Calcium 10.2 8.5 - 10.5 mg/dL [facility] Blood specimen (specimen) 01/17/2021 8:51 PM EDT 01/17/2021 8:54 PM EDT Narrative Resulting Agency Comment Spec In Lab Katt Dumont MD CHEMISTRY ORDERABLES Performing Organization Address City/[facility]/ZIP Co de Phone Number [facility] [place] [address] * (ABNORMAL) Basic Metabolic Panel (non-fasting) (01/17/2021 8:51 PM EDT) Glucose Lvl 260(H) 65 - 199 mg/dL [facility] Comment:Diabetes: >=200 mg/d L plus symptoms BUN 36(H) 8 - 18 mg/dL [facility] Creatinine 1.20 0.70 - 1.20 mg/dL [facility] Sodium 138 135 - 145 mmol/L [facility] Potassium 4.1 3.5 - 5.0 mmol/L [facility] Comment: Please note: ??Patients with WBC >100,000 may have falsely elevated Potassium levels. ??For accurate Potassium quantification in these patients send serum separator tube (gold top) for subsequent determinations. ??Contact the Clinical Chemistry Laboratory if there are any questions. Chloride 101 98 - 107 mmol/L [facility] CO2 20(L) 22 - 31 mmol/L [facility] Anion Gap 17(H) 5 - 15 mmol/L [facility] Calcium 10.2 8.5 - 10.5 mg/dL [facility] Estimated GFR 47(L) >=60 mL/min/1. 73 m?? [facility] Dumont MD CHEMISTRY ORDERABLES Performing Organization Address [facility] de Phone Number [facility] [place] [address] * (ABNORMAL) POCT Glucose (01/17/2021 8:25 PM EDT) POC Glucose 259(H) 65 - 199 mg/dL [facility] Comment: Supplemental ranges: <140 mg/dL before meals <180 mg/dL all other times of the day Blood specimen (specimen) 01/17/2021 8:25 PM EDT 01/17/2021 8:25 PM EDT Eliel Leigh MD POINT OF CARE TEST O RDERABLES Performing Organization Address [facility] de Phone Number [facility] [place] [address] * XR ERCP (01/17/2021 6:53 PM EDT) Narrative [facility][NOTE 3] - 01/17/2021 6:54 PM EDT See PACS for result report. Eliel Leigh MD IMG FILM LIBRARY ORD ERABLES Performing Organization Address [facility] de Phone Number [place], [place] * ERCP (01/17/2021 11:37 AM EDT) Pathologist [facility] ERCP [facility] Endoscopy Procedure Date: 01/17/2021 11:37 AM ? Patient Name: Tyoin Coley ? Date of : 1955 ? Age: 65 ? Order #: [id number] ? Instrument Name: [id number] ? Procedure: ? ERCP Indications: ? For [...] the procedure well. ? Findings: ? A paradichlorobenzene tender film of the abdomen was obtained. Surgical [...] Procedure Code(s): ?? --- Professional --- ? 18624, Esophagogastroduodenos copy, ? flexible, transoral; diagnostic, ? [...] cholecystitis without ? obstruction CPT copyright 2019 [employer]. All rights reserved. The codes documented in this report are preliminary and upon sole stitcher hand review may be revised to meet current compliance requirements. Attending Participation: ? I personally performed the entire procedure. ? Eliel Leigh, 01/17/2021 1:28:55 PM Number of Addenda: 0 Note Initiated On: 01/17/2021 11:37 AM PROVATION 01/17/2021 11:3 7 AM EDT Asia Gil DO GENERAL SURGICAL O RDERABLES PROVATION * POCT Glucose (01/17/2021 10:07 AM EDT) POC Glucose 130 65 - 199 mg/dL [facility] Comment: Supplemental ranges: <140 mg/dL before meals <180 mg/dL all other times of the day Blood specimen (specimen) 01/17/2021 10:07 AM EDT 01/16/2021 12:00 PM EDT Eliel Leigh MD POINT OF CARE TEST O MEIDiplopiaMARIE Performing Organization Address City/[facility]/ZIP Co de Phone Number [facility] [place] [address] documented in this encounter Visit Diagnoses Diagnosis Cystic duct calculus Calculus of gallbladder without mention of cholecystitis or obstruction RUQ pain Abdominal pain, right upper quadrant Chest pain, unspecified type GERD (gastroesophageal reflux disease) Esophageal reflux Other acute pancreatitis without infection or necrosis Cystic duct calculus Calculus of gallbladder without mention of cholecystitis or obstruction RUQ pain Abdominal pain, right upper quadrant Cystic duct calculus Calculus of gallbladder without [...] Given 01/24/2021 4:43 PM EDT 40 mg calcium carbonate (Tums) chewable tablet 500-1,000 [...] Given 01/22/2021 11:08 PM EDT 200 mg lactated ringers infusion 100 mL/hr, Intravenous, CONTINUOUS, Starting on Wed01/17/21 at 1030, Until Wed01/17/21 at 2026, Endoscopy (Day of Procedure) New Bag 01/17/2021 2:24 PM EDT 100 mL/hr 100 mL/hr New Bag 01/17/2021 10:30 AM EDT 100 mL/hr 100 mL/hr lactulose (Chronulac) (0.67 gram/mL) oral liquid 20 g 20 g, Oral, 2 TIMES DAILY PRN, Starting on Wed01/24/21 at 1100, Until Wed01/27/21 at 1509, Constipation, Routine lidocaine (Lidoderm) 5% topical patch 3 patch [...] HOURS, First dose (after last modification) on 01/23/21 at 1145, Until Discontinued, Remove lidocaine 5% patch lisinopriL (Prinivil;Zestril) tablet 10 mg 10 mg, Oral, DAILY, First dose on 01/25/21 at 1000, Until Discontinued, Please hold for HR < 60, SBP < 90. Thank you, Routine Given 01/27/2021 9:04 AM EDT 10 mg Given 01/26/2021 9:42 AM EDT 10 mg Given 01/25/2021 1:19 PM EDT 10 mg melatonin tablet 10.5 mg 10.5 mg (rounded from 10 mg), Oral, NIGHTLY, First dose on Wed01/22/21 at 2100, Until Discontinued, Routine Given 01/26/2021 8:37 PM EDT 10.5 mg Given 01/25/2021 8:47 PM EDT 10.5 mg Given 01/24/2021 9:00 PM EDT 10.5 mg metoclopramide (Reglan) (5 mg/mL) injection 10 mg 10 mg, Intravenous, EVERY 6 HOURS PRN, Starting on Jodee 01/23/21 at 1349, Until Wed01/27/21 at 1509, Nausea, [...] Oral, EVERY 8 HOURS PRN, Starting on 01/17/21 at 1841, Until 01/27/21 at 1509, Nausea, [...] Given 01/19/2021 11:40 AM EDT 8 mg pantoprazole EC (Protonix) tablet 40 mg [...] Given 01/23/2021 9:46 AM EDT 17 g senna-docusate (Pericolace) 8.6-50 mg per tablet 2 [...] Given 01/26/2021 9:45 AM EDT 5 mLs traZODone (Desyrel) tablet 50 mg 50 mg, Oral, NIGHTLY, First dose on Wed01/26/21 at 2100, Until Discontinued, Routine Given 01/26/2021 [...] (Given - Provider: Deidra Black) DULoxetine DR (Cymbalta) capsule 30 mg 30 mg, Oral, DAILY, First dose on 01/18/21 at 0900, Until Discontinued, Routine 0842 (Given - Provider: Deidra Black) 0942 (Given - Provider: Deidra Black) 0904 (Given - Provider: Rebceca Johnson RN) gabapentin (Neurontin) capsule 100 mg 100 mg, Oral, DAILY AT NOON, First dose on Wed01/18/21 at 1200, Until Discontinued, Pharmacy: Please time with other gabapentin order, Routine 1319 (Given - Provider: Deidra Black) 1136 (Given - Provider: Deidra Black) 1112 (Given - Provider: Cindy Cervantes RN) gabapentin (Neurontin) capsule 200 mg 200 mg, Oral, 2 TIMES DAILY, First dose on Wed01/17/21 at 2115, Until Discontinued, Routine 0842 (Given - Provider: Deidra Black)2047 (Given - Provider: Shayy Ashley RN) 09 (Given - Provider: Deidar Black)2036 (Given - Provider: Brittny Hallman, RODERICK) 0903 (Given - Provider: Rebecca Johnson RN) [...] HOURS, First dose (after last modification) on [facility] 01/23/21 at 0030, Until Discontinued, Apply patch for 12 hours to lower back, and then remove for 12 hours., Routine 2227 (Patch Applied - Provider: Shayy Ashley RN) 2045 (Patch Applied - Provider: Brittny Hallman RN - Comment: lower back) lidocaine (Lidoderm) topical patch REMOVAL(Linked Group 1) Transdermal, EVERY 24 HOURS, First dose (after last modification) on [facility] 01/23/21 at 1145, Until Discontinued, Remove lidocaine 5% patch 1100 (Patch Removed - Provider: Deidra Black) 1100 (Patch Removed - Provider: Deidra Black) 1112 (Patch Removed - Provider: Cindy Cervantes, RODERICK) lisinopriL (Prinivil;Zestril) tablet 10 mg 10 mg, [...] Routine 2046 (Given - Provider: Shayy Ashley, RODERICK) 2036 (Given - Provider: Brittny Hallman, RODERICK) [...] Reason: Patient/family refused)2099 (Not Given - Provider: Shayy Ashley RN [...] be dissolved in water for administration, Routine 0905 (Given - Provider: Rebecca Johnson, RODERICK) senna-docusate (Pericolace) 8.6-50 mg per tablet 2 tablet 2 tablet, Oral, 2 TIMES DAILY, First dose (after last modification) on Jodee 01/23/21 at 2100, Until Discontinued, Routine 09 (Not Given - Provider: Deidra Black - Reason: Patient/family refused)2046 (Given - Provider: Shayy Ashley RN) 0900 (Not Given - Provider: Deidra Black - Reason: Patient/family refused)2099 (Not Given - Provider: Brittny Hallman RN - Reason: Patient/family refused) 09 (Not Given - Provider: Rebecca Johnson RN - Reason: Patient/family refused) sodium chloride 0.9 % (flush) flush 5 mL 5 mL, Intravenous, 2 TIMES DAILY, First dose on Wed01/17/21 at 2115, Until Discontinued, Routine 0937 (Given - Provider: Deidra Black)2104 (Given - Provider: Shayy Ashley RN) 0945 (Given - Provider: Deidra Black)2038 (Given - Provider: Brittny Hallman, RODERICK) 0906 (Given - Provider: Rebecca Johnson, RODERICK) traZODone (Desyrel) tablet 50 mg 50 mg, Oral, NIGHTLY, First dose on 01/26/21 at 2100, Until Discontinued, Routine 2038 (Given - Provider: Brittny Hallman, RODERICK) Continuous Medication Order 01/25/2021 01/26/2021 01/27/2021 sodium chloride 0.9% infusion (CANCELED) 100 mL/hr, Intravenous, CONTINUOUS, Starting on 01/25/21 at 1315, Until 01/26/21 at 0954 1310 (New Bag - Provider: Deidra Black)2000 (Rate/Dose Verify - Provider: Shayy Ashley, RODERICK)2232 (New Bag - Provider: Shayy Ashley RN) 0842 (New Bag - Provider: Nelda Ferguson RN)1100 (Stopped - Provider: Deidra Black) PRN Medication Order 01/25/2021 01/26/2021 01/27/2021 acetaminophen (Tylenol) tablet 650 mg 650 mg, Oral, EVERY 4 HOURS PRN, Starting on 01/22/21 at 0945, Until Wed01/27/21 at 1509, Pain, [...] 200 mg, Oral, NIGHTLY PRN, Starting on 01/22/21 at 2119, Until Wed01/27/21 at 1509, sciatic leg pain, Routine 0532 (Given - Provider: Shayy Ashley, RN) 0421 (Given - Provider: Brittny Hallman, RODERICK) lactulose (Chronulac) (0.67 gram/mL) oral liquid 20 [...] Starting on Jodee 01/23/21 at 1349, Until Wed01/27/21 at 1509, Nausea, [...] first. documented in this encounter Care Teams Environmental Monitoring Specialist Relationship Specialty Start Date End Date Asia Gil DO [address] [place] [address] PCP - General Family Medicine 07/09/20 documented as of this encounter
--- OUTSIDE RECORDS SUMMARY | 2024-05-02 12:13 | XMS_ITS | Encounter Summary ---
Author Organization [facility] [place] [address] Care Team Providers Care Presser Machine Name Role Phone None Primary Care Provider Unavailabl e Encounter Details Date Type Department Care Team (Late st Contact Info) Description 07/08/2020 Orders Only [place] [phone] Magdaleno Dia MD [facility] [place] [address] Chronic kidney disease, unspecified CKD stage Social [...] 10:30 AM EDT Hospital En[place] [phone] Bk Contreras MD [facility] [place] [address] 05/08/2024 10:30 AM EDT - 05/08/2024 11:00 AM EDT [place] [address] Bk Contreras MD [facility] [place] [address] INJECTION, ANESTHETIC AGENT AND/OR STEROID, TRANSFORAMINAL EPIDURAL, LUMBAR OR SACRAL, SINGLE LEVEL (WRVU 1.9) 05/12/2024 1:00 PM EDT Office Visit Cardiology at [place] [phone] Sadi Styles MD [facility] [place] [address] 05/29/2024 10:15 AM EDT TH Visit (TeleHealth) [facility] at [place] [phone] Natalee Sanchez APRN [facility] [place] [address] Scheduled Procedures Name Priority Associated Diagnoses Date/Ti me INJECTION, ANESTHETIC AGENT AND/OR STEROID, TRANSFORAMINAL EPIDURAL, LUMBAR OR SACRAL, SINGLE LEVEL (WRVU 1.9) Left lumbar radiculopathy 05/08/2024 10:30 AM EDT documented as of this encounter Visit Diagnoses Diagnosis Chronic kidney disease, unspecified CKD stage Left lumbar radiculopathy Thoracic or lumbosacral neuritis or radiculitis, unspecified documented in this encounter Care Teams Presser Machine Relationship Specialty Start Date End Date None None PCP - General 06/07/20 07/08/20 documented as of this encounter
--- OUTSIDE RECORDS SUMMARY | 2024-05-02 12:13 | XMS_ITS | Encounter Summary ---
Author Organization [facility] [place] [address] Care Team Providers Care Sales Host Name Role Phone Cass Abebe Amena HULL Primary Care Provider [phone] Encounter Details Date Type Department Care Team (Late st Contact Info) Description 05/31/2020 Ancillary Procedure [place] [phone] Amy Herring MD [facility] [place] [address] Social History Tobacco Use Types Packs/Day Years Used Date Smoking Tobacco: Never Smokeless Tobacco: Never Alcohol Use Standard Drinks/Week Comments Not Currently [...] 10:30 AM EDT Hospital [place] [phone] Bk Contreras MD [facility] [place] [address] 05/08/2024 10:30 AM EDT - 05/08/2024 11:00 AM [place] [address] Bk Contreras MD [facility] [place] [address] INJECTION, ANESTHETIC AGENT AND/OR STEROID, TRANSFORAMINAL EPIDURAL, LUMBAR OR SACRAL, SINGLE LEVEL (WRVU 1.9) 05/12/2024 1:00 PM EDT Office Visit Cardiology at [place] [phone] Sadi Styles MD [facility] [place] [address] 05/29/2024 10:15 AM EDT TH Visit (TeleHealth) [place] [phone] Natalee Sanchez APRN [facility] [place] [address] Scheduled Procedures Name Priority Associated Diagnoses Date/Ti me INJECTION, ANESTHETIC AGENT AND/OR STEROID, TRANSFORAMINAL EPIDURAL, LUMBAR OR SACRAL, SINGLE LEVEL (WRVU 1.9) Left lumbar radiculopathy 05/08/2024 10:30 AM EDT documented as of this encounter Procedures Procedure Name Priority Date/Time Associated Diagnosis Comments FILM LIBRARY STORAGE ONLY DX FOOT Routine 05/31/2020 12:00 AM EDT documented in this encounter Results * Film Library- Storage Only DX Foot (05/31/2020 12:00 AM EDT) Narrative [facility] - 08/26/2023 9:57 PM EST This exam is auto-finalizing. It's purpose is for storage only. Amy Herring MD [facility] FILM LIBRARY ORD ERABLES [place], [place] documented in this encounter Visit Diagnoses Not on filedocumented in this encounter Care Teams Sales Host Relationship Specialty Start Date End Date Cass Abebe, INSERT OPERATOR [address] [place] [address] PCP - General Internal Medicine 04/04/20 06/06/20 documented as of this encounter
--- OUTSIDE RECORDS SUMMARY | 2024-05-02 12:13 | XMS_ITS | Encounter Summary ---
[place] [address] Care Team Providers Care Side Trimmer Name Role Phone Asia Gil DO Primary Care Provider [phone] Reason for Visit * Auth/Cert Specialty Diagnoses / Procedures Referred By Contjaymie t Referred To Contact Diagnoses Chronic RUQ/R flank pain. Hx of CCY. Found to have stone in cystic duct v infundibulum on recent RUQ U/S. Procedures PRO ERCP,DIAGNOSTIC ERCP Referral ID Status Reason Start Date Expiration Date Visits Re quested Visits Authorized [id number] 1 1 Encounter Details Date Type Department Care Team (Late st Contact Info) Description 01/17/2021 11:36 AM EDT Anesthesia [place] [address] Ashli Jacobson MD [facility] [place] [address] [place] [address] Luma De Los Santos CRNA [facility] [place] [address] [place] [address] Anesthesia Record Procedure Summary Procedure Name Responsible Anesthesiologist Anesthesia Start Time Anesthesia Stop Time ERCP (WRVU 5.85) (Trunk) Ashli Jacobson MD 01/17/21 1136 01/17/21 1351 Events Date Time Event Comment 01/17/2021 1101 1136 AN Verify 1136 Start 1136 An Start Data 1146 An Induction 1148 An Intubation 1155 Anesthesia Ready 1226 Quick Note ETCO2 and GM st opped reading, patient moving air, taking good VT per anesthesia machine, GM and ETCO2 monitor troubleshooting performed 1307 Procedure Stop 1319 Extubation/LMA Out 1321 an stop data 1321 Recovery or ICU Handoff Char ent care was transferred to the destination unit staff after review of the patient's medical history, current anesthetic/surgical status and plan, according to the Provider Handoff Checklist. 1342 Quick Note Patient with se maci nausea and vomiting, Haldol 1 mg IV given times 2 1351 Stop Meds Name Total IV Lidocaine 100 mg Propofol 180 mg Rocuronium 10 mg Ondansetron 4 mg Dexamethasone 8 mg Succinylcholine 100 mg Esmolol 60 mg ceFAZolin 2 g Lactated Ringers 950 mL * Agents Name O2 Air N2O Sevoflurane (et) * Blood No blood administrations on file. Lines, Drains, and Airways Type Details Placement Removal Midline Catheter - Single Lumen 04/05/20; 1537; left basilic vein (medial side of arm); (20g); 10; 01/19/21; 202904/05/20 1537 by Vin Chin RN 01/19/212029 by Shannon Lang, medical representative 04/05/20; 1537; glut eal; blister(s); LDA not present upon assessment; 01/19/21; 202904/05/20 1537 by Vin Chin RN 01/19/212029 by Shannon Lang RN Wound 04/05/20; 1537; glut eal; fissure (moisture fissure); LDA not present upon assessment; 01/19/21; 202904/05/20 153 by Vin Chin RN 01/19/212029 by Shannon Lang, RODERICK (RETIRED) Peripheral IV Line - Single Lumen 01/17/21; 1012; cephalic vein (lateral side of arm), right; [id number] catheter system; 20 gauge; distraction, intradermal injection, tolerated well; site symptomatic, site care per policy/procedure, catheter/device intact; 01/19/21; 213601/17/21 1012 by Sierra Camilo RN 01/19/212136 by Sary Morales RN ETT Mask Ventilation: No t Attempted (0); ETT Type: Oral, Cuffed; ETT Size: 7 mm; Mac Blade: 3; Notes: Asleep, Pre-O2, Cricoid Pressure, Stylette; Attempts: 1; Laryngoscopy Grade: 2; ETT Placement Verified By: Auscultation, Capnometry, Visual; Secured at Teeth: 21 cm; Removal Date: 01/17/21; Removal Time: 13101/17/21 1148 by Luma De Los Santos CRNA 01/17/21 1319 by Luma De Los Santos CRNA documented in this encounter Social History Tobacco [...] OR Notes * Anesthesia Postprocedure Evaluation - Ashli Jacobson MD - 01/17/2021 6:11 PM EDT Department of Anesthesiology Post-procedure Note Patient: Toyin Coley Procedure Summary Date: 01/17/21 Room / Location: [facility] ENDO 3 / [facility] Anesthesia Start: 1136 Anesthesia Stop: 1351 Procedure: ERCP (N/A Trunk) Diagnosis: Cystic duct calculus RUQ pain (Chronic RUQ/R flank pain. Hx of CCY. Found to have stone in cystic duct v infundibulum on recent RUQ U/S.) Surgeons: Eliel Leigh MD Responsible Provider: Ashli Jacobson MD Anesthesia Type: general ASA Status: 2 All Anesthesia Providers: Anesthesiologist: Ashli Jacobson MD [employer] MANAGER: Luma De Los Santos CRNA Vitals Value Taken Time BP 174/74 01/17/21 1740 Temp Pulse Resp 16 01/17/21 1420 SpO2 99 % 01/17/21 1750 Pain Level 0 01/17/21 1700 Vitals shown include unvalidated device data. Patient Location: PACU/SDP Level of Consciousness: Awake and Alert Pain Management: Satisfactory Analgesia PONV: Ongoing PONV/Being Treated Cardiovascular Status: At Baseline and Hemodynamically Stable Respiratory Status: At Baseline and Room Air Postoperative Fluid Status: Intravascular EUvolemia Possible Anesthetic Complications: NONE apparent at time of evaluation Final Primary Anesthesia Type: General (The anesthetic type performed was the same as planned.) Comments: Plan to admit for ongoing PONV. PONV added to problem list. Ashli Jacobson MD * Anesthesia Preprocedure Evaluation - Ashli Jacobson MD - 01/17/2021 10:59 AM EDT Pre-Anesthesia Evaluation for: Toyin Coley a 65 y.o. female. Procedure(s): ERCP Patient Active Problem List Diagnosis ??? Cystic duct calculus Added automatically from request for surgery [id number] ??? RUQ pain Added automatically from request for surgery [id number] ??? Toxic metabolic encephalopathy ??? Acute cystitis [...] updated by a utility run on 01/13/2012 Past Medical History: Diagnosis Date ??? CKD (chronic kidney disease) 04/05/2020 ??? Delirium 04/05/2020 ??? Diabetes mellitus type 2, uncomplicated 05/14/2014 ??? Hx-TIA (transient ischemic attack) 05/14/2014 ??? Hyperlipidemia 05/28/2014 Off statin due to foot pain side effect ??? Hypertension 05/28/2014 ??? Restless legs syndrome (RLS) 04/05/2020 No past surgical history on file. Social History Tobacco Use ??? Smoking status: Never Smoker ??? Smokeless tobacco: Never Used ??? Tobacco comment: uses medical [employer] Substance Use Topics ??? Alcohol use: Not Currently Social History Substance and Sexual Activity Drug Use Yes ??? Frequency: 7.0 times per week ??? Types: Marijuana Comment: nightly-has card Allergies Allergen Reactions ??? Benzodiazepines Other (See Comments) Paradoxical reaction to benzodiazepines ??? House Dust ??? Hydrocodone-Acetaminophen Itching ??? Metoclopramide ??? Mold Extracts ??? Pollen Extracts ??? Propoxyphene Hcl Nausea And Vomiting ??? Unknown [Unclassified Drug] Most environmental allergies: grass, workman, trees,pollen Medications: MAR and/or home medications have been reviewed. Physical Exam: Preprocedure Vitals Current as of 01/17/21 1059 BP: 143/96 Pulse: 67 Resp: SpO2: 100 Temp: 36.4 ??C (97.6 ??F) Height: Weight: 76.7 kg (169 lb) (01/17/21) BMI: IBW: Last edited 01/17/21 1004 by JERRI Airway Assessment: Mallampati: II TM distance: >3 FB Neck ROM: full Cardiovascular Assessment: Rhythm: regular Rate: normal Pulmonary Assessment: unlabored breathing Dental Assessment: Misc Assessment: Last Filed Perioperative Cognitive Screening None Anesthesia Plan: ASA 2 general, with a(n) intravenous induction 65 yo s/f ERCP PMHx: GERD (asymptomatic now), DM2, h/o TIA twenty years ago, HTN, HLD, intermittent RUQ pain, peripheral neuropathy Social Hx: no EtOH, no Tobacco, daily QHS smoked Marijuana Physical activity: limited by painful peripheral neuropathy ROS negative for GERD, CP, SOB, dizziness. Notes and labs reviewed. Patient personally seen and examined. We discussed benefits, indications, and risks of anesthesia (including but not limited to sore throat, dental injury, nerve injury, possible/prolonged intubation, cardiac, pulmonary, or neurologic event). Risk and benefits of sedation discussed with patient. All efforts will be made to keep patient comfortable and in an unaware sedated state; however, due to the nature of sedation it is possible to hear people talking during the procedure and to be aware of surroundings. Patient instructed to informour team of any needs or discomforts while with us today. Plan MAC, standard ASA monitors, adequate PIV access. Ashli Jacobson MD Informed Consent: Anesthetic plan and risks discussed with patient. Plan discussed with [employer] MANAGER. PAT Clinic Note documented in this encounter Miscellaneous Notes * Addendum Note - Ashli Jacobson MD - 01/17/2021 6:16 PM EDT Addendum created 01/17/211815 by Ashli Jacobson MD Order list changed, Problem List modified documented in this encounter Plan of Treatment Upcoming Encounters Date Type Department Care Team (Latest Contact Info) Description 05/08/2024 10:30 AM EDT Hospital [place] [address] Bk Contreras MD [facility] [place] [address] 05/08/2024 10:30 AM EDT - 05/08/2024 11:00 AM EDT [place] [phone] Bk Contreras MD [facility] [place] [address] INJECTION, ANESTHETIC AGENT AND/OR STEROID, TRANSFORAMINAL EPIDURAL, LUMBAR OR SACRAL, SINGLE LEVEL (WRVU 1.9) 05/12/2024 1:00 PM EDT Office Visit Cardiology at [address] [phone] Sadi Styles MD [facility] [place] [address] 05/29/2024 10:15 AM EDT TH Visit (TeleHealth) [facility] [place] [phone] Natalee Sanchez, [employer]ERSON [facility] [place] [address] Scheduled Procedures Name Priority Associated Diagnoses Date/Ti me INJECTION, ANESTHETIC AGENT AND/OR STEROID, TRANSFORAMINAL EPIDURAL, LUMBAR OR SACRAL, SINGLE LEVEL (WRVU 1.9) Left lumbar radiculopathy 05/08/2024 10:30 AM EDT documented as of this encounter Visit Diagnoses Not on filedocumented in this encounter Administered Medications Inactive Administered Medications - up to 3 most recent administrations Medication Order MAR Action Action Date Dose Rate Site ceFAZolin (Ancef) 1 g in dextrose 5% 50 mL infusion Intravenous, PRN, Starting on Wed01/17/21 at 1209, Until Wed01/17/21 at 1353, Administer over 30 Minutes, Anesthesia Intra-op Given 01/17/2021 12:09 PM EDT 2 g dexamethasone (Decadron) injection Intravenous, PRN, Starting on Wed01/17/21 at 1221, Until Wed01/17/21 at 1353, Anesthesia Intra-op, Routine Given 01/17/2021 12:21 PM EDT 8 mg esmoloL (Brevibloc) (10 mg/mL) injection Intravenous, PRN, Starting on Wed01/17/21 at 1147, Until Wed01/17/21 at 1353, Anesthesia Intra-op, Routine Given 01/17/2021 1:16 PM EDT 10 mg Given 01/17/2021 11:47 AM EDT 50 mg lactated ringers infusion Intravenous, CONTINUOUS PRN, Starting on Wed01/17/21 at 1136, Until Wed01/17/21 at 1353, Anesthesia Intra-op New Bag 01/17/2021 11:36 AM EDT lidocaine (pf) (Xylocaine) (20 mg/mL) 2% injection syringe Intravenous, PRN, Starting on Wed01/17/21 at 1146, Until Wed01/17/21 at 1353, Anesthesia Intra-op, Routine Given 01/17/2021 11:46 AM EDT 100 mg ondansetron (pf) (Zofran) (2 mg/mL) injection Intravenous, PRN, Starting on Wed01/17/21 at 1305, Until Wed01/17/21 at 1353, Anesthesia Intra-op, Routine Given 01/17/2021 1:05 PM EDT 4 mg propofoL (Diprivan) 10 mg/mL bolus injection (Anesthesia) Intravenous, PRN, Starting on Wed01/17/21 at 1147, Until Wed01/17/21 at 1353, Anesthesia Intra-op Given 01/17/2021 11:56 AM EDT 20 mg Given 01/17/2021 11:54 AM EDT 20 mg Given 01/17/2021 11:51 AM EDT 20 mg rocuronium (Zemuron) (10 mg/mL) multi-dose injection Intravenous, PRN, Starting on Wed01/17/21 at 1155, Until Wed01/17/21 at 1353, Anesthesia Intra-op, Routine Given 01/17/2021 11:55 AM EDT 10 mg succinylcholine (Anectine;Quelicin) (20 mg/mL) injection Intravenous, PRN, Starting on Wed01/17/21 at 1146, Until Wed01/17/21 at 1353, Anesthesia Intra-op, Routine Given 01/17/2021 11:46 AM EDT 100 mg documented in this encounter Care Teams Side Trimmer Relationship Specialty Start Date End Date Asia Gil DO [address] [place] [address] PCP - General Family Medicine 07/09/20 documented as of this encounter
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
--- OUTSIDE RECORDS SUMMARY | 2024-05-02 12:13 | XMS_ITS | Encounter Summary ---
Author Organization [facility] [place] [address] Care Team Providers Care Desk Assistant Name Role Phone None Primary Care Provider Unavailabl e Encounter Details Date Type Department Care Team (Late st Contact Info) Description 07/04/2020 Orders Only Ne[place] [phone] Magdaleno Dia MD [facility] [place] [address] Hypertension, unspecified type Social History Tobacco Use [...] 10:30 AM EDT Hospital En[place] [phone] Bk Contreras MD [facility] [place] [address] 05/08/2024 10:30 AM EDT - 05/08/2024 11:00 AM EDT [place] [address] Bk Contreras MD [facility] [place] [address] INJECTION, ANESTHETIC AGENT AND/OR STEROID, TRANSFORAMINAL EPIDURAL, LUMBAR OR SACRAL, SINGLE LEVEL (WRVU 1.9) 05/12/2024 1:00 PM EDT Office Visit Cardiology at [address] Sadi Styles MD [facility] [place] [address] 05/29/2024 10:15 AM EDT TH Visit (TeleHealth) [place] [address] Natalee Sanchez APRN [facility] [place] [address] Scheduled Procedures Name Priority Associated Diagnoses Date/Ti me INJECTION, ANESTHETIC AGENT AND/OR STEROID, TRANSFORAMINAL EPIDURAL, LUMBAR OR SACRAL, SINGLE LEVEL (WRVU 1.9) Left lumbar radiculopathy 05/08/2024 10:30 AM EDT documented as of this encounter Visit Diagnoses Diagnosis Hypertension, unspecified type Left lumbar radiculopathy Thoracic or lumbosacral neuritis or radiculitis, unspecified documented in this encounter Care Teams Desk Assistant Relationship Specialty Start Date End Date None None PCP - General 06/07/20 07/08/20 documented as of this encounter
--- OUTSIDE RECORDS SUMMARY | 2024-05-02 12:13 | XMS_ITS | Encounter Summary ---
[place] [address] Care Team Providers Care Garbage Collector Name Role Phone Asia Gil DO Primary Care Provider [phone] Encounter Details Date Type Department Care Team (Late st Contact Info) Description 12/27/2020 1:30 PM EDT Ancillary Procedure [place] [address] Lucrecia Feliz MD [facility] [place] [address] Social History Tobacco Use Types [...] 10:30 AM EDT Hospital Encounter [place] [phone] Bk Contreras MD [facility] [place] [address] 05/08/2024 10:30 AM EDT - 05/08/2024 11:00 AM EDT Surgery [place] [phone] Bk Contreras MD [facility] [place] [address] INJECTION, ANESTHETIC AGENT AND/OR STEROID, TRANSFORAMINAL EPIDURAL, LUMBAR OR SACRAL, SINGLE LEVEL (WRVU 1.9) 05/12/2024 1:00 PM EDT Office Visit Cardiology at [address] [phone] Sadi Styles MD [facility] [place] [address] 05/29/2024 10:15 AM EDT TH Visit (TeleHealth) [facility] [place] [phone] Natalee Sanchez APRN [facility] [place] [address] Scheduled Procedures Name Priority Associated Diagnoses Date/Ti me INJECTION, ANESTHETIC AGENT AND/OR STEROID, TRANSFORAMINAL EPIDURAL, LUMBAR OR SACRAL, SINGLE LEVEL (WRVU 1.9) Left lumbar radiculopathy 05/08/2024 10:30 AM EDT documented as of this encounter Procedures Procedure Name Priority Date/Time Associated Diagnosis Comments FILM LIBRARY STORAGE ONLY ULTRASOUND STUDY Routine 12/27/2020 1:27 PM EDT documented in this encounter Results * Film Library- Storage Only Ultrasound Study (12/27/2020 1:27 PM EDT) Narrative [facility] - 12/27/2020 1:27 PM EDT This exam is auto-finalizing. It's purpose is for storage only. Lucrecia Feliz MD IMG FILM LIBRARY ORD ERABLES [facility] [place], [place] documented in this encounter Visit Diagnoses Not on filedocumented in this encounter Care Teams Garbage Collector Relationship Specialty Start Date End Date Asia Gil DO [address] [place] [address] PCP - General Family Medicine 07/09/20 documented as of this encounter
--- OUTSIDE RECORDS SUMMARY | 2024-05-02 12:14 | XMS_ITS | Encounter Summary ---
Author Organization [facility] [place] [address] Care Team Providers Care Import Dispatcher Name Role Phone Unknown Primary Care Provider Unavailabl e Encounter Details Date Type Department Care Team (Late st Contact Info) Description 03/30/2020 Ancillary Procedure [place] [phone] Cass Abebe, SERVICE STATION OPERATOR [address] [place], [place] [id number] Social History Tobacco Use Types Packs/Day Years Used Date Smoking Tobacco: Never Alcohol Use Standard Drinks/Week Comments Not Asked [...] 10:30 AM EDT Hospital En[place] [phone] Bk Contreras MD [facility] [place] [place] [address] 05/08/2024 10:30 AM EDT - 05/08/2024 11:00 AM EDT [place] [address] Bk Contreras MD [facility] [place] [address] INJECTION, ANESTHETIC AGENT AND/OR STEROID, TRANSFORAMINAL EPIDURAL, LUMBAR OR SACRAL, SINGLE LEVEL (WRVU 1.9) 05/12/2024 1:00 PM EDT Office Visit Cardiology at [address] [phone] Sadi Styles MD [facility] [place] [address] 05/29/2024 10:15 AM EDT TH Visit (TeleHealth) [place] [phone] Natalee Sanchez APRN [facility] [place] [address] Scheduled Procedures Name Priority Associated Diagnoses Date/Ti me INJECTION, ANESTHETIC AGENT AND/OR STEROID, TRANSFORAMINAL EPIDURAL, LUMBAR OR SACRAL, SINGLE LEVEL (WRVU 1.9) Left lumbar radiculopathy 05/08/2024 10:30 AM EDT documented as of this encounter Procedures Procedure Name Priority Date/Time Associated Diagnosis Comments FILM LIBRARY STORAGE ONLY DX CHEST Routine 03/30/2020 12:00 AM EDT documented in this encounter Results * Film Library- Storage Only DX Chest (03/30/2020 12:00 AM EDT) Narrative [facility] - 04/05/2020 12:01 PM EDT This exam is auto-finalizing. It's purpose is for storage only. Cass Abebe APRN IMG FILM LIBRARY ORD ERABLES [place], [place] documented in this encounter Visit Diagnoses Not on filedocumented in this encounter Care Teams Import Dispatcher Relationship Specialty Start Date End Date Unknown None PCP - General 10/11/19 04/03/20 documented as of this encounter
--- OUTSIDE RECORDS SUMMARY | 2024-05-02 12:14 | XMS_ITS | Encounter Summary ---
Author Organization Formerly [facility] [place] [address] Care Team Providers Care Production Support Consultant Name Role Phone Unknown Primary Care Provider Unavailabl e Encounter Details Date Type Department Care Team (Late st Contact Info) Description 04/01/2020 12:10 AM EDT Ancillary Procedure [place] [phone] Cass Abebe, MEDIA PROMOTER [address] [place] [address] Social History Tobacco Use Types Packs/Day Years [...] AM EDT Hospital Encounter [place] [phone] Bk Contreras MD [facility] [place] [address] 05/08/2024 10:30 AM EDT - 05/08/2024 11:00 AM EDT Surgery [place] [address] Bk Contreras MD [facility] [place] [address] INJECTION, ANESTHETIC AGENT AND/OR STEROID, TRANSFORAMINAL EPIDURAL, LUMBAR OR SACRAL, SINGLE LEVEL (WRVU 1.9) 05/12/2024 1:00 PM EDT Office Visit Cardiology at [address] [phone] Sadi Styles MD [facility] [place] [address] 05/29/2024 10:15 AM EDT TH Visit (TeleHealth) [place] [phone] Natalee Sanchez APRN [facility] [place] [address] Scheduled Procedures Name Priority Associated Diagnoses Date/Ti me INJECTION, ANESTHETIC AGENT AND/OR STEROID, TRANSFORAMINAL EPIDURAL, LUMBAR OR SACRAL, SINGLE LEVEL (WRVU 1.9) Left lumbar radiculopathy 05/08/2024 10:30 AM EDT documented as of this encounter Procedures Procedure Name Priority Date/Time Associated Diagnosis Comments FILM LIBRARY STORAGE ONLY ULTRASOUND STUDY Routine 04/01/2020 12:10 AM EDT documented in this encounter Results * Film Library- Storage Only Ultrasound Study (04/01/2020 12:10 AM EDT) Narrative [facility] - 04/05/2020 12:01 PM EDT This exam is auto-finalizing. It's purpose is for storage only. Cass Abebe APRN IMVictor M FILM LIBRARY ORD ERABLES [place], [place] documented in this encounter Visit Diagnoses Not on filedocumented in this encounter Care Teams Production Support Consultant Relationship Specialty Start Date End Date Unknown None PCP - General 10/11/19 04/03/20 documented as of this encounter
--- OUTSIDE RECORDS SUMMARY | 2024-05-02 12:14 | XMS_ITS | Encounter Summary ---
Author Organization [facility]ly [facility] [place] [address] Care Team Providers Care Shake Feeder Name Role Phone Unknown Primary Care Provider Unavailabl e Encounter Details Date Type Department Care Team (Late st Contact Info) Description 04/03/2020 Ancillary Procedure [place] [phone] Cass Abebe, TUBE CUTTER [address] [place], [place] [phone] Social History Tobacco Use Types Packs/Day Years [...] 10:30 AM EDT Hospital Encounter [place] [phone] Bk Contreras MD [facility] [place] [address] 05/08/2024 10:30 AM EDT - 05/08/2024 11:00 AM EDT Surgery [place] [address] Bk Contreras MD [facility] [place] [address] INJECTION, ANESTHETIC AGENT AND/OR STEROID, TRANSFORAMINAL EPIDURAL, LUMBAR OR SACRAL, SINGLE LEVEL (WRVU 1.9) 05/12/2024 1:00 PM EDT Office Visit Cardiology at [address] [phone] Sadi Styles MD [facility] [place] [address] 05/29/2024 10:15 AM EDT TH Visit (TeleHealth) [facility] [place] [phone] Natalee Sanchez APRN [facility] [place] [address] Scheduled Procedures Name Priority Associated Diagnoses Date/Ti me INJECTION, ANESTHETIC AGENT AND/OR STEROID, TRANSFORAMINAL EPIDURAL, LUMBAR OR SACRAL, SINGLE LEVEL (WRVU 1.9) Left lumbar radiculopathy 05/08/2024 10:30 AM EDT documented as of this encounter Procedures Procedure Name Priority Date/Time Associated Diagnosis Comments FILM LIBRARY STORAGE ONLY ULTRASOUND STUDY Routine 04/03/2020 12:00 AM EDT documented in this encounter Results * Film Library- Storage Only Ultrasound Study (04/03/2020 12:00 AM EDT) Narrative [facility] - 04/05/2020 11:58 AM EDT This exam is auto-finalizing. It's purpose is for storage only. Cass Abebe APRN IMVictor M FILM LIBRARY ORD ERABLES [place], [place] documented in this encounter Visit Diagnoses Not on filedocumented in this encounter Care Teams Shake Feeder Relationship Specialty Start Date End Date Unknown None PCP - General 10/11/19 04/03/20 documented as of this encounter
--- OUTSIDE RECORDS SUMMARY | 2024-05-02 12:14 | XMS_ITS | Encounter Summary ---
Author Organization [facility] [place] [address] Care Team Providers Care Entry Processor Name Role Phone Unknown Primary Care Provider Unavailabl e Encounter Details Date Type Department Care Team (Late st Contact Info) Description 04/01/2020 Ancillary Procedure [place] [phone] Cass Abebe, UNEMPLOYMENT INSURANCE HEARING OFFICER [address] [place], [place] [phone] Social History Tobacco Use Types Packs/Day Years [...] 10:30 AM EDT Hospital Encounter [place] [phone] Bk Contreras MD [facility] [place] [address] 05/08/2024 10:30 AM EDT - 05/08/2024 11:00 AM EDT [place] [address] Bk Contreras MD [facility] [place] [address] INJECTION, ANESTHETIC AGENT AND/OR STEROID, TRANSFORAMINAL EPIDURAL, LUMBAR OR SACRAL, SINGLE LEVEL (WRVU 1.9) 05/12/2024 1:00 PM EDT Office Visit Cardiology at [address] [phone] Sadi Styles MD [facility] [address] 05/29/2024 10:15 AM EDT TH Visit (TeleHealth) [place] [phone] Natalee Sanchez APRN [facility] [place] [address] Scheduled Procedures Name Priority Associated Diagnoses Date/Ti me INJECTION, ANESTHETIC AGENT AND/OR STEROID, TRANSFORAMINAL EPIDURAL, LUMBAR OR SACRAL, SINGLE LEVEL (WRVU 1.9) Left lumbar radiculopathy 05/08/2024 10:30 AM EDT documented as of this encounter Procedures Procedure Name Priority Date/Time Associated Diagnosis Comments FILM LIBRARY STORAGE ONLY NUCLEAR MEDICINE Routine 04/01/2020 12:00 AM EDT documented in this encounter Results * Film Library- Storage Only nuclear medicine (04/01/2020 12:00 AM EDT) Narrative [facility] - 04/05/2020 11:59 AM EDT This exam is auto-finalizing. It's purpose is for storage only. Cass Abebe APRN IMVictor M FILM LIBRARY ORD ERABLES [place], [place] documented in this encounter Visit Diagnoses Not on filedocumented in this encounter Care Teams Entry Processor Relationship Specialty Start Date End Date Unknown None PCP - General 10/11/19 04/03/20 documented as of this encounter
--- OUTSIDE RECORDS SUMMARY | 2024-05-02 12:14 | XMS_ITS | Encounter Summary ---
Author Organization Formerly [facility] Address [facility] [place] [address] Care Team Providers Care Sugar Chipper Machine Operator Name Role Phone Cass Abebe APRN Primary Care Provider [phone] Encounter Details Date Type Department Care Team (Latest Contact Info) Description 04/05/2020 1:53 PM EDT - 04/05/2020 3:35 PM EDT Hospital En[place] [address] Yann Hendrix MD [facility] [place] [address] Discharge Disposition: Home Social History Tobacco Use [...] Sig Dispensed Refills Start Date End Date pregabalin (LYRICA) 150 mg Capsule Take 150 mg by mouth 2 times daily. 03/25/2020 04/15/2020 mirtazapine (REMERON) 7.5 mg Tablet Take 7.5 mg by mouth nightly. 03/26/2020 02/13/2021 lactulose (Chronulac) 10 gram/15 mL Solution TAKE 30 MILLILITERS BY MOUTH TWICE DAILY NEEDED FOR CONSTIPATION 03/26/2020 06/07/2020 nitroGLYcerin (NITROSTAT) 0.[address] 0.4 mg under the tongue every 5 minutes as needed. 06/07/2020 nortriptyline (Pamelor) 10 mg Capsule Take 20 mg by mouth nightly. 01/27/2021 traMADol (ULTRAM) 50 mg tablet Take 50 mg by mouth nightly. 04/15/2020 pantoprazole (PROTONIX) 40 mg tabletIndications:ABIMAEL D (gastroesophageal reflux disease) Take 1 tablet by mouth daily. 90 tablet 3 02/19/2012 01/27/2021 gabapentin (NEURONTIN) 300 mg capsule Take 300 mg by mouth 3 times daily. 04/15/2020 vitamin E 400 unit capsule Take 400 Units by mouth daily. 04/15/2020 FERROUS FUMARATE/VIT BCOMP&C (SUPER B COMPLEX ORAL) Take by mouth. 06/07/2020 hydrochlorothiazide (HYDRODIURIL) 25 mg tablet Take 25 mg by mouth daily. 01/27/2021 metFORMIN (GLUCOPHAGE) 1,000 mg tablet Take 1,000 mg by mouth 2 times daily. 06/07/2020 documented as of this encounter Plan of Treatment Upcoming Encounters Date Type Department Care Team (Latest Contact Info) Description 05/08/2024 10:30 AM EDT Hospital [place] [address] Bk Contreras MD [facility] [place] [address] 05/08/2024 10:30 AM EDT - 05/08/2024 11:00 AM [place] [address] Bk Contreras MD [facility] [place] [address] INJECTION, ANESTHETIC AGENT AND/OR STEROID, TRANSFORAMINAL EPIDURAL, LUMBAR OR SACRAL, SINGLE LEVEL (WRVU 1.9) 05/12/2024 1:00 PM EDT Office Visit Cardiology at [address] [address] Sadi Styles MD [facility] [place] [address] 05/29/2024 10:15 AM EDT TH Visit (TeleHealth) [place] [phone] Natalee Sanchez REHABILITATION COORDINATOR [facility] [place] [address] Scheduled Procedures Name Priority Associated Diagnoses Date/Ti me INJECTION, ANESTHETIC AGENT AND/OR STEROID, TRANSFORAMINAL EPIDURAL, LUMBAR OR SACRAL, SINGLE LEVEL (WRVU 1.9) Left lumbar radiculopathy 05/08/2024 10:30 AM EDT documented as of this encounter Visit Diagnoses Not on filedocumented in this encounter Care Teams Sugar Chipper Machine Operator Relationship Specialty Start Date End Date Cass Abebe APRN [address] [place] [address] PCP - General Internal Medicine 04/04/20 06/06/20 documented as of this encounter
--- OUTSIDE RECORDS SUMMARY | 2024-05-02 12:14 | XMS_ITS | Encounter Summary ---
Author Organization [facility] [place] [address] Care Team Providers Care Pipe Maker Name Role Phone Unknown Primary Care Provider Unavailabl e Encounter Details Date Type Department Care Team (Late st Contact Info) Description 04/02/2020 Ancillary Procedure [place] [phone] Cass Abebe, TIME LOCK EXPERT [address] [place], [place] [phone] Social History Tobacco Use Types Packs/Day Years [...] 10:30 AM EDT Hospital En[place] [phone] Bk Contreras MD [facility] [address] 05/08/2024 10:30 AM EDT - 05/08/2024 11:00 AM EDT [place] [address] Bk Contreras MD [facility] [address] INJECTION, ANESTHETIC AGENT AND/OR STEROID, TRANSFORAMINAL EPIDURAL, LUMBAR OR SACRAL, SINGLE LEVEL (WRVU 1.9) 05/12/2024 1:00 PM EDT Office Visit Cardiology at [address] [phone] Sadi Styles MD [facility] [place] [address] 05/29/2024 10:15 AM EDT TH Visit (TeleHealth) [place] [phone] Natalee Sanchez APRN [facility] [place] [address] Scheduled Procedures Name Priority Associated Diagnoses Date/Ti me INJECTION, ANESTHETIC AGENT AND/OR STEROID, TRANSFORAMINAL EPIDURAL, LUMBAR OR SACRAL, SINGLE LEVEL (WRVU 1.9) Left lumbar radiculopathy 05/08/2024 10:30 AM EDT documented as of this encounter Procedures Procedure Name Priority Date/Time Associated Diagnosis Comments FILM LIBRARY STORAGE ONLY DX CHEST Routine 04/02/2020 12:00 AM EDT documented in this encounter Results * Film Library- Storage Only DX Chest (04/02/2020 12:00 AM EDT) Narrative [facility] - 04/05/2020 11:59 AM EDT This exam is auto-finalizing. It's purpose is for storage only. Cass Abebe APRN IMG FILM LIBRARY ORD ERABLES [place], [place] documented in this encounter Visit Diagnoses Not on filedocumented in this encounter Care Teams Pipe Maker Relationship Specialty Start Date End Date Unknown None PCP - General 10/11/19 04/03/20 documented as of this encounter
--- OUTSIDE RECORDS SUMMARY | 2024-05-02 12:14 | XMS_ITS | Encounter Summary ---
Author Organization [facility] [place] [address] Care Team Providers Care Car Knocker Name Role Phone Unknown Primary Care Provider Unavailabl e Encounter Details Date Type Department Care Team (Late st Contact Info) Description 04/01/2020 12:05 AM EDT Ancillary Procedure Radiology [place] [phone] Cass Abebe, AUTO DEALERSHIP PORTER [address] [place], [place] [address] Social History Tobacco Use Types Packs/Day Years [...] 10:30 AM EDT Hospital Encounter [place] [phone] Bk Contreras MD [facility] [place] [address] 05/08/2024 10:30 AM EDT - 05/08/2024 11:00 AM EDT Surgery [place] [address] Bk Contreras MD [facility] [place] [address] INJECTION, ANESTHETIC AGENT AND/OR STEROID, TRANSFORAMINAL EPIDURAL, LUMBAR OR SACRAL, SINGLE LEVEL (WRVU 1.9) 05/12/2024 1:00 PM EDT Office Visit Cardiology at [address] [phone] Sadi Styles MD [facility] [place] [address] 05/29/2024 10:15 AM EDT TH Visit (TeleHealth) [place] [phone] Natalee Sanchez APRN [facility] [place] [address] Scheduled Procedures Name Priority Associated Diagnoses Date/Ti me INJECTION, ANESTHETIC AGENT AND/OR STEROID, TRANSFORAMINAL EPIDURAL, LUMBAR OR SACRAL, SINGLE LEVEL (WRVU 1.9) Left lumbar radiculopathy 05/08/2024 10:30 AM EDT documented as of this encounter Procedures Procedure Name Priority Date/Time Associated Diagnosis Comments FILM LIBRARY STORAGE ONLY CT HEAD Routine 04/01/2020 12:05 AM EDT documented in this encounter Results * Film Library- Storage Only CT Head (04/01/2020 12:05 AM EDT) Narrative [facility] - 04/05/2020 12:00 PM EDT This exam is auto-finalizing. It's purpose is for storage only. Cass Abebe APRN IMVictor M FILM LIBRARY ORD ERABLES [place], [place] documented in this encounter Visit Diagnoses Not on filedocumented in this encounter Care Teams Car Knocker Relationship Specialty Start Date End Date Unknown None PCP - General 10/11/19 04/03/20 documented as of this encounter
--- OUTSIDE RECORDS SUMMARY | 2024-05-02 12:14 | XMS_ITS | Encounter Summary ---
Author Organization [facility] Address [facility] [place] [address] Care Team Providers Care Senior Java Programmer Name Role Phone Cass Abebe APRN Primary Care Provider [phone] Reason for Visit * Auth/Cert Specialty Diagnoses / Procedures Referred By Contac t Referred To Contact Diagnoses AMS (altered mental status) Agitated delirium Referral ID Status Reason Start Date Expiration Date Visits Re quested Visits Authorized [id number] 1 1 Encounter Details Date Type Department Care Team (Late st Contact Info) Description 04/05/2020 3:36 PM EDT - 04/15/2020 4:02 PM EDT Hospital Encounter [address] [place] [address] Yann Franco MD [facility] [place] [address] Reyes Aguilar MD [facility] [place] [address] [place] [address] [place] [address] [place] [address] Gastroesophageal reflux disease, esophagitis presence not specified; Delirium; Toxic metabolic encephalopathy Discharge Disposition: Home with VNA Social History [...] Sign Reading Time Taken Comments Blood Pressure 113/58 04/15/2020 11:23 AM EDT Pulse 88 04/14/2020 7:06 AM EDT Temperature 37.1 ??C (98.8 ??F) 04/15/2020 11:23 AM E DT Respiratory Rate 17 04/15/2020 11:23 AM EDT Oxygen Saturation 100% 04/15/2020 11:23 AM EDT Inhaled Oxygen Concentration - - Weight 79 kg (174 lb 2.6 oz) 04/12/2020 12:00 AM EDT Height 160 cm (5' 2.99) 04/05/2020 3:37 PM EDT Body Mass Index 30.86 04/05/2020 3:37 PM EDT documented in this encounter Discharge Summaries * Pili Campos DO - 04/15/2020 2:19 PM EDT Discharge Summary Patient Name: Toyin Lion Patient Age: 64 y.o. Language: Swiss Race: White Ethnicity: Not nor Admit date: 04/05/2020 Discharge date and time: 04/15/2020 Attending Physician: Pili Campos DO Discharge Physician: Lila Orozco APRN Follow-up Recommendations for Providers: - Please do not give lyrica as abrupt discontinuation of lyrica was likely the cause of her alteredmental status - restarted metformin and hydrochlorothiazide Inpatient Provider Contact Information: For questions regarding this document or issues relating to this hospitalization on the Medical Service, please contact your inpatient physician through the [facility] Virtual Assistant . Issues afterhours and on weekends will be handled by the Hospitalist staff on-call. Discharge Diagnoses (Hospital Problems) and Secondary Diagnoses (Chronic Problems): Active Hospital Problems Diagnosis ??? Toxic metabolic encephalopathy ??? Acute cystitis Resolved Hospital Problems No resolved problems to display. Active Non-Hospital Problems Diagnosis ??? Anxiety ??? Diabetic neuropathy ??? Nonalcoholic steatohepatitis ??? Restless legs syndrome (RLS) ??? CKD (chronic kidney disease) ??? Delirium ??? Hyperlipidemia ??? Hypertension ??? Diabetes mellitus type 2, uncomplicated ??? Hx-TIA (transient ischemic attack) ??? GERD (gastroesophageal reflux disease) ??? Environmental allergies Operations/Major Procedures: Operations: Other Major Procedures: N/A History of Presentation: On 03/26/20 Toyin had a telehealth visit with a provider at [facility], during which she endorsed that shehad not been feeling well for??a few weeks. She reported fatigue, anxiety, insomnia, constipation and intermittent pruritis. She was noted to have a rising creatinine [1.74, done on??03/27/20] and theplan was to refer her to Nephrology. She was also pending a sleep study for presumed KINGSLEY at the time.? She presented to [facility] the night of 03/30/20??with a chief complaint of shortness of breath and worsening anxiety. She was noted to be 'dry heaving' and tachycardic on arrival to the [facility] ED. Her family endorsed to [facility] that she had recently been taken off of her Lyricadue to her renal function, but symptoms, according to [facility] notes, seemed to have predated discontinuation of her Lyrica. During her evaluation in her ED she became progressively more anxious, diaphoretic and tachycardic and was noted to be 'pacing and out of bed'. She received a dose of Ativan at that point, with improvement in her anxiety and HR. ?? Because of her tachycardia and slightly elevated DDimer, she underwent venous dopplers [on 04/01/20]and a VQ scan [on 04/01/20], which ruled out DVT and PE. They felt that her clinical picture seemed most consistent with Lyrica withdrawal, and treated her with escalating doses of Ativan, and ultimately an Ativan infusion. The patient's family denied current alcohol abuse, she reportedly stopped drinking about 10 years ago. ?? She underwent a CT Head on 04/01/20, which was unremarkable, and had no physical/lateralizing deficits or findings concerning for a cerebrovascular event. On 04/04/20 Precedex was added, she was still on the Ativan Drip at that point with escalating doses, for acutely worsening agitation/combativeness, and at some point following, PRN Valium was also added, as well as standing BID Xanax. At that point a lumbar puncture was done and was not consistent with an infectious cause. Her UA at the time grew out <50,000 mixed gram positives, for which she was placed on Ceftriaxone.?? Hospital Course: # Acute toxic encephalopathy - resolved # hypoactive delirium - resolved # SIMMONS cirrhosis # Hx of TIA # UTI - resolved # Malnutrition # DM II # HTN # GERD Patient with periods of agitation that was initially managed with ativan. Worsening cognitive function and agitation while on an ativan drip. Ativan was discontinued but precedex continued. Given altered mental status a DHT was placed and tube feeds were started. Fingersticks were initiated and patient was started on ISS for blood sugar management. Patient completed course of antibiotics for UTI.On 04/11 patient began clearing and started following commands. She was started on sips and chips with INSPECTING AND TESTING LEAD HAND eventually upgrading to puree diet. On 04/13, lactulose was restarted for SIMMONS cirrhosis. She continued to have improving mental status and by the time of discharge she was alert and oriented eating a regular diet. Her blood pressure was controlled with clonidine while admitted, but this was weaned and discontinued at time of discharge. On day of discharge patient did not have any UTI symptoms. The etiology of her agitation was thought to be due to abrupt cessation of lyrica. Vital Signs at Discharge: BP: 113/58, Heart Rate: 88, Temp: 37.1 ??C (98.8 ??F), Resp: 17, BMI (Calculated): 31.09 Height: 160 cm (5' 2.99) (04/05/20 1537) Weight: 79 kg (174 lb 2.6 oz) (04/12/20 0000) Functional and Cognitive Status: Independent alert and oriented Important Studies and Lab Data: Labs: Last 3 wbc, hgb, hct plt Recent Labs 04/15/20 0421 04/14/20 0657 04/12/20 0110 WBC 7.6 8.0 7.7 HGB 10.6* 10.3* 9.1* HCT 32.4* 32.5* 28.3* PLATELET 108* 103* 108* Last 3 Lytes Recent Labs 04/15/20 0421 04/14/20 0657 04/12/20 0110 NA 138 137 140 K 4.1 4.1 4.1 CL 101 100 105 CO2 24 24 24 BUN 24* 23* 32* CREATININE 1.30* 1.27* 1.05 Last 3 LFTs Recent Labs 04/12/20 0110 04/05/20 1542 AST Not Perf 22 ALT 15 15 ALKPHOS 80 72 BILITOT 0.2 0.4 BILIDIR 0.1 0.1 Results for orders placed or performed during the hospital encounter of 04/05/20 XR Abdomen 1 view (Generic) (Exam End: 04/06/2020 10:59 AM) Impression Relative paucity of bowel gas. There is a Dobbhoff tube with tip projecting over the distal stomach. Left lower lobe atelectasis. Thank you for letting us participate in the care of this patient. For questions regarding this report, please contact the number below. Pending Studies and Lab Data: N/A Discharge Conditions/Prognosis: Good/stable Discharge to: home Updated Allergies/ADRs: Allergies Allergen [...] Your Medications Continued medications, unchanged Dose Details hydroCHLOROthiazide 25 mg Tab Commonly known as: Hydrodiuril Take 25 mg by mouth daily. 25 mg Refills: 0 lactulose 10 gram/15 mL Soln Commonly known as: Chronulac TAKE 30 MILLILITERS BY MOUTH TWICE DAILY NEEDED FOR CONSTIPATION Refills: 0 metFORMIN 1,000 mg Tab Commonly known as: GLUCOPHAGE Take 1,000 mg by mouth 2 times daily. 1,000 mg Refills: 0 mirtazapine 7.5 mg Tab Commonly known as: REMERON Take 7.5 mg by mouth nightly. 7.5 mg Refills: 0 nitroGLYcerin 0.4 mg Subl Commonly known as: Nitrostat Place 0.4 mg under the tongue every 5 minutes as needed. 0.4 mg Refills: 0 NORTRIPTYLINE ORAL Take 40 mg by mouth nightly. 40 mg Refills: 0 pantoprazole EC 40 mg Tbec Commonly known as: Protonix Take 1 tablet by mouth daily. 40 mg Quantity: 90 tablet Refills: 3 SUPER B COMPLEX ORAL Take by mouth. Refills: 0 STOPPED Medications gabapentin 300 mg Cap Commonly known as: Neurontin pregabalin 150 mg Cap Commonly known as: LYRICA traMADoL 50 mg Tab Commonly known as: Ultram vitamin E 400 unit Cap Smoking Status at Discharge: Social History Tobacco Use Smoking Status Never Smoker Smokeless Tobacco Never Used Instructions Given to Patient at Discharge: Patient Instructions Instructions on Discharge to Home Why you were hospitalized - altered mental status, anxiety, confusion. This was felt to be a resultof abrupt lyrica cessation, UTI, and ativan. Call your doctor or seek medical attention if you develop the following - chest pain, shortness of breath, fever, cough, weakness in an arm or leg Activity level - no restrictions Diet - no change in previous diet Driving - please avoid driving until you see your PCP Shower/Bath - permitted Wound Care - none Home Oxygen therapy - none Changes in Your Medications: Continue your other medications as prescribed. Avoid narcotics, including tramadol, for pain control. Stop these medications: - DO NOT take Lyrica Follow-up: Future Appointments Date Time Provider Department Center 04/23/2020 2:45 PM KURTIS Abebe office Your Inpatient Doctor: YANN FRANCO, REYES HERNANDEZ, DANY MORALES, PILI PHELPS Your Primary Care Provider: Cass Abebe APRN For questions regarding this document or issues relating to this hospitalization on the Medical Service, please contact your inpatient physician through the [facility] Virtual Assistant . Issues afterhours and on weekends will be handled by the Hospitalist staff on-call. General Instructions PCP follow up 04/23 2:45 office Future Appointments and Orders Future Orders Complete By Expires Referral to Home Health - at DISCHARGE [[id number] CPT(R)] As directed Process Instructions: Scheduling Instructions: Comments: DOCUMENTATION FOR VNA SERVICES (INCLUDING THOSE PATIENTS WITH MEDICARE COVERAGE REQUIRING HOME VNA SERVICES AND/OR HOSPICE SERVICES) PATIENT'S LOCATION: Toyin Lion [address] [place] [id number] (home) Bracelet Form Coverer's Name: Patient and daughter In discussion with the attending physician, it is certified that this patient is under their care and that they, or a Nurse Practitioner,Clinical Nurse specialist or Physician Ground Crew Lines Person who is working directly with them, had a face to face encounter that meets the physician face to face encounter requirements with this patient on 04/15/2020 The encounter with the patient was in whole, or in part, for the following medical condition, whichis the primary reason for home health care services: 64 y.o.??female??with hx of GERD, HLD, HTN, DMII, Hx of TIA, obesity, SIMMONS cirrhosis, who presents in transfer from [facility] to [facility] on 04/05 forsevere agitation of unclear etiology. ?? By OSH report patient had stopped her lyrica and there is some thought that this contributed to herinitial presentation, although she also had a UTI. She also received sedating medications at an OSHfor her initial presentation of agitation. Pt has completed treatment for her UTI and her sensorium/ alertness/orientation continues to improve. In discussion with the provider, it is certified that, based on their findings, the following services are medically necessary for home health services. To provide the following care/treatments with the clinical findings supporting the need for services as follows: HOME CARE ORDERS: RN ORDERS:Assess wound or incision, vital signs, cardiopulmonary status, nutrition, hydration, elimination, meds effectiveness and management; reinforce education re health issues PT ORDERS: Continue rehab for endurance, gait stability and strength with mobility and transfers. Home safety evaluation. Home exercise program if appropriate. OT: assess and continue rehab for managing ADL's. MOTOR BUILDER WINDER: Assist with ADLs I.e. shower at the direction of RN HOME HEALTH CARE AGENCY: [facility] PHONE: [phone] FAX: [phone] Start of care: 24-48 hours of discharge FOR MEDICARE ONLY: (please delete this section if not Medicare) In discussion with the attending physician, it is certified that the clinical findings support thatthis patient is homebound because absences from home require considerable and taxing effort due to: Unable to ambulate community surfaces or distances unassisted due to pain, LE weakness or decreasedbalance and risk for falls Unsteady Gait, poor balance , requiring assistive devices and/or assistance of another Please note that any additional orders needs or changes will need to be obtained from this patient's PCP: Cass Abebe, PROTECTIVE SIGNAL REPAIRER [address] [facility] [address] All A agencies which cover the area of patient's residence have been reviewed, either verbally margarita writing, and patient/family have chosen the home health care agency noted Questions: Agency name and contact information: [facility] Patient location post discharge: Home What services are requested: Registered Nurse Physical Therapy Occupational Therapy Home Health Aide Start date: Responsible MD post discharge contact info: PCP Ant novak [[id number] Custom] As directed Process Instructions: Scheduling Instructions: Comments: Toyin Lion [address] [facility] [address] (home) [phone] (work) Diagnosis: encephalopathy with Unsteady gait Significant weakness, ataxia or gait abnormality Patient's: Hgt: 160 cm Wgt: 79 kg VENDOR: [facility] Ordering: Front wheel walker Deliver to 's hospital room #: 153A Questions: Vendor Name/Contact information: [facility] Discharge References/Attachments None documented in this encounter Discharge Instructions * Discharge Instructions* Lucrecia Franz CCMA - 04/15/2020 2:30 PM EDT PCP follow up 04/23 2:45 office * Patient Instructions* Lila Orozco APRN - 04/15/2020 2:30 PM EDT Instructions on Discharge to Home Why you were hospitalized - altered mental status, anxiety, confusion. This was felt to be a resultof abrupt lyrica cessation, UTI, and ativan. Call your doctor or seek medical attention if you develop the following - chest pain, shortness of breath, fever, cough, weakness in an arm or leg Activity level - no restrictions Diet - no change in previous diet Driving - please avoid driving until you see your PCP Shower/Bath - permitted Wound Care - none Home Oxygen therapy - none Changes in Your Medications: Continue your other medications as prescribed. Avoid narcotics, including tramadol, for pain control. Stop these medications: - DO NOT take Lyrica Follow-up: Future Appointments Date Time Provider Department Center 04/23/2020 2:45 PM KURTIS Abebe office Your Inpatient Doctor: YANN FRANCO, DANY SALAS, PILI PHELPS Your Primary Care Provider: Cass Abebe APRN For questions regarding this document or issues relating to this hospitalization on the Medical Service, please contact your inpatient physician through the [facility] Virtual Assistant . Issues afterhours and on weekends will be handled by the Hospitalist staff on-call. documented in this encounter Medications at Time of Discharge Medication Sig Dispensed Refills Start Date End Date mirtazapine (REMERON) 7.5 mg Tablet Take 7.5 mg by mouth nightly. 03/26/2020 02/13/2021 lactulose (Chronulac) 10 gram/15 mL Solution TAKE 30 MILLILITERS BY MOUTH TWICE DAILY NEEDED FOR CONSTIPATION 03/26/2020 06/07/2020 nitroGLYcerin (NITROSTAT) 0.[address] 0.4 mg under the tongue every 5 minutes as needed. 06/07/2020 nortriptyline (Pamelor) 10 mg Capsule Take 20 mg by mouth nightly. 01/27/2021 pantoprazole (PROTONIX) 40 mg tabletIndications:ABIMAEL D (gastroesophageal reflux disease) Take 1 tablet by mouth daily. 90 tablet 3 02/19/2012 01/27/2021 FERROUS FUMARATE/VIT BCOMP&C (SUPER B COMPLEX ORAL) Take by mouth. 06/07/2020 hydrochlorothiazide (HYDRODIURIL) 25 mg tablet Take 25 mg by mouth daily. 01/27/2021 metFORMIN (GLUCOPHAGE) 1,000 mg tablet Take 1,000 mg by mouth 2 times daily. 06/07/2020 documented as of this encounter Progress Notes * Silvana Carrillo RN - 04/15/2020 4:02 PM EDT Patient ready for discharge; discharge home with VNA services; IV removed; AVS printed and reviewed, all questions answered; discharge with daughterSilvana in personal vehicle; brought to car via wheelchair to East Entrance. * Pili Campos DO - 04/15/2020 2:19 PM EDT Day of Discharge Note The patient was seen and examined on rounds. Vital signs were stable, a thorough physical exam was conducted, and the patients most recent lab values were reviewed. Last value Range last 24 hrs Temperature Temp: 37.1 ??C (98.8 ??F) Temp: [36.6 ??C (97.9 ??F)-37.1 ??C (98.8 ??F)] Heart Rate Heart Rate: 88 Heart Rate: -- Blood Pressure BP: 113/58 BP: (113-141)/(58-75) Respiratory Rate Resp: 17 Resp: [16-17] SpO2 SpO2: 100 % SpO2: [97 %-100 %] Physical Exam Most Recent Vitals: 04/15/20 1123 BP: 113/58 Pulse: Resp: 17 Temp: 37.1 ??C (98.8 ??F) SpO2: 100% A/P Medications were reviewed, and a discharge plan was finalized. IV access was removed, and the patient was provided with educational material prior to discharge. The patient was discharged in stable condition. Please see the discharge summary of today's date for complete assessment and plan Pili Campos DO * Tonie Carver RN - 04/15/2020 2:18 PM EDT Patient cleared for discharge home with VNA and 03/05 that will be provided by her daughter from PT.Patient will need a FWW at discharge. 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 A letter describing our affiliations was reviewed with them and they were educated about their right to choose where referrals are placed. Patient requests referral to: [facility]. [facility] Expected date of discharge: 04/15/2020. Referral routed to the Manager Field for matching with agency/vendor and to provide any required information. An Important Message From Medicare about Your Rights letter reviewed with pt and daughter verbalized acknowledgment and declined copy. Tonie Carver RN, BSN, MST, ACM Ditching Machine Engineer pager#[phone] * Lila Orozco APRN - 04/15/2020 11:37 AM EDT Hospital Medicine Daily Progress Note Admit Date: 04/05/2020 Hospital Day 10 days Active Hospital Problems Diagnosis ??? Toxic metabolic encephalopathy ??? Acute cystitis Resolved Hospital Problems No resolved problems to display. 24 Hour Events: - awake, alert, and appropriate - no acute events overnight - increasing PO intake - weaning clonidine ROS: Limited Denies chest pain, shortness of breath, pain Physical Exam Vitals Range last 24 hrs Temperature Temp: [36.6 ??C (97.9 ??F)-37.1 ??C (98.8 ??F)] Heart Rate Heart Rate: -- Blood Pressure BP: (113-141)/(58-75) Respiratory Rate Resp: [16-17] SpO2 SpO2: [97 %-100 %] Intake/Output Summary (Last 24 hours) at 04/15/2020 1209 Last data filed at 04/15/2020 0920 Gross per 24 hour Intake 500 ml Output -- Net 500 ml Patient Vitals for the past 168 hrs: Weight 04/12/20 0000 79 kg (174 lb 2.6 oz) 04/11/20 0200 77.4 kg (170 lb 9.6 oz) 04/09/20 2200 76.6 kg (168 lb 14 oz) 04/08/20 2200 77.7 kg (171 lb 4.8 oz) Body mass index is 30.86 kg/m??. Estimated Creatinine Clearance: 42.3 mL/min (A) (based on SCr of 1.3 mg/dL (H)). CONSTITUTIONAL: alert, appears comfortable NEURO: oriented, following commands HEENT: PERRLA, CHEST: RRR LUNGS: CTAB ABDOMEN: soft, NABS, (-) tenderness EXTREMITIES: (-) edema, pulses full and equal, major muscle groups equal movement in strength but weak throughout SKIN: moist, (-) rash Studies reviewed in eDH. Remarkable for the following: LABS: Recent Labs 04/15/20 04204/14/20 0657 04/12/20 0110 WBC 7.6 8.0 7.7 HGB 10.6* 10.3* 9.1* HCT 32.4* 32.5* 28.3* PLATELET 108* 103* 108* Recent Labs 04/15/20 0421 04/14/20 0657 04/12/20 0110 NA 138 137 140 K 4.1 4.1 4.1 CL 101 100 105 CO2 24 24 24 BUN 24* 23* 32* CREATININE 1.30* 1.27* 1.05 Recent Labs 04/12/20 0110 AST Not Perf ALT 15 ALKPHOS 80 BILITOT 0.2 BILIDIR 0.1 Recent Labs 04/15/20 0421 04/14/20 0657 04/12/20 0110 CALCIUM 9.9 9.9 8.6 PHOS 3.8 4.1 2.7 No results for input(s): PT, INR, PTT in the last 168 hours. No results for input(s): CK, TROPONINT in the last 168 hours. FSBG Trend Recent Labs 04/15/20 1122 04/15/20 0651 04/14/20 1949 04/14/20 1651 04/14/20 1641 04/14/20 1137 04/14/20 0654 04/13/20 2035 04/13/20 1642 04/13/20 1133 POCGLU 97 117 107 133 128 140 128 134 132 126 MICRO: No results for input(s): URINECULTURE in the last 720 hours. No results for input(s): GRAMSTAIN, BFCX, LOWERRESPCX, TISSUECX in the last 720 hours. Recent Labs 04/05/20 1608 04/05/20 1725 BLOODCX No growth at 5 days. No growth at 5 days. IMAGING: Results for orders placed or performed during the hospital encounter of 04/05/20 XR Abdomen 1 view (Generic) (Exam End: 04/06/2020 10:59 AM) Impression Relative paucity of bowel gas. There is a Dobbhoff tube with tip projecting over the distal stomach. Left lower lobe atelectasis. Thank you for letting us participate in the care of this patient. For questions regarding this report, please contact the number below. Inpatient Medications: Scheduled ? ? insulin lispro 1-6 Units Subcutaneous 4 Times Daily AC & HS ??? cloNIDine 0.1 mg Oral Daily ??? enoxaparin 30 mg Subcutaneous Nightly ??? folic acid 1 mg Oral Daily ??? magnesium oxide 400 mg Oral BID ??? pantoprazole EC 40 mg Oral Daily ??? melatonin 6 mg Oral Nightly ??? sodium chloride 0.9 % (flush) 5 mL Intravenous BID ??? thiamine 100 mg Oral Daily Continuous infusions: PRN: acetaminophen, polyethylene glycoL (MIRALAX) oral powder, lactulose, ondansetron, bisacodyL, glucose 40% oral geL OR dextrose 10% OR glucagon (human recombinant), sodium chloride 0.9 % (flush), lidocaine Assessment: Toyin Lion is a 64 y.o. female with hx of GERD, HLD, HTN, DM II, Hx of TIA, obesity, SIMMONS cirrhosis, who presents in transfer from [facility] to [facility] on 04/05 for severe agitation of unclear etiology. By OSH report patient had stopped her lyrica and there is some thought that this contributed to herinitial presentation, although she also had a UTI. She also received sedating medications at an OSHfor her initial presentation of agitation. Pt has completed treatment for her UTI and her sensorium/ alertness/orientation continues to improve. Patient sitting upright in recliner for today's visit. She is much more alert and is able to recallevents that have happened over the past couple days. She is medically ready for rehab placement. # acute toxic encephalopathy - resolved # hypoactive delirium - resolved # SIMMONS cirrhosis # Hx of TIA - Melatonin nightly - thiamine to 100mg PO - folic acid 1mg daily - mental status significantly improving - restarted lactulose - holding lyrica # UTI - resolved - completed course of ceftriaxone # Malnutrition # DM II # HTN # GERD - ISS - pantoprazole - clonidine daily - consider stopping clonidine tomorrow and restarting HCTZ - INSPECTING AND TESTING LEAD HAND assessment: carb control diet IV access/ MIVF PIV DVT prophylaxis heparin PT/OT/INSPECTING AND TESTING LEAD HAND PT/OT Wound care Anticipated Disposition rehab Team Pager (MD Coverage 03/05): [phone] PCP Cass Abebe APRN SHARED VISIT This patient was seen in conjunction with Dr. Campos as part of a shared visit. Lila Orozco APRN 04/15/2020 * Erik Morales MD - 04/14/2020 8:10 AM EDT Hospital Medicine Daily Progress Note Admit Date: 04/05/2020 Hospital Day 9 days Active Hospital Problems Diagnosis ??? Toxic metabolic encephalopathy ??? Acute cystitis Resolved Hospital Problems No resolved problems to display. 24 Hour Events: - removed DHT, pt eating small amount of meals - family visited, updated on plan - nausea that responded well to zofran - neuro exam with improving awareness and interaction - started on lactulose ROS: Limited Denies chest pain, shortness of breath, pain Physical Exam Vitals Range last 24 hrs Temperature Temp: [36.6 ??C (97.9 ??F)-37 ??C (98.6 ??F)] Heart Rate Heart Rate: [85-88] Blood Pressure BP: (122-152)/(68-84) Respiratory Rate Resp: [14-20] SpO2 SpO2: [96 %-100 %] Intake/Output Summary (Last 24 hours) at 04/14/2020 0810 Last data filed at 04/14/2020 0432 Gross per 24 hour Intake 475 ml Output 1000 ml Net -525 ml Patient Vitals for the past 168 hrs: Weight 04/12/20 0000 79 kg (174 lb 2.6 oz) 04/11/20 020 77.4 kg (170 lb 9.6 oz) 04/09/202199 76.6 kg (168 lb 14 oz) 04/08/202199 77.7 kg (171 lb 4.8 oz) 04/08/20199 77.9 kg (171 lb 11.8 oz) Body mass index is 30.86 kg/m??. Estimated Creatinine Clearance: 43.3 mL/min (A) (based on SCr of 1.27 mg/dL (H)). CONSTITUTIONAL: alert, appears comfortable NEURO: oriented, following commands, improving HEENT: PERRLA, CHEST: RRR LUNGS: CTAB ABDOMEN: soft, NABS, (-) tenderness EXTREMITIES: (-) edema, pulses full and equal, major muscle groups equal movement in strength but weak throughout SKIN: moist, (-) rash Studies reviewed in eDH. Remarkable for the following: LABS: Recent Labs 04/14/2065604/12/2010904/11/20 0030 WBC 8.0 7.7 10.1* HGB 10.3* 9.1* 9.7* HCT 32.5* 28.3* 30.2* PLATELET 103* 108* 136* Recent Labs 04/14/2065604/12/200 04/11/20 0030 NA 137 140 139 K 4.1 4.1 4.2 CL 100 105 100 CO2 24 24 27 BUN 23* 32* 42* CREATININE 1.27* 1.05 1.46* Recent Labs 04/12/20 0110 AST Not Perf ALT 15 ALKPHOS 80 BILITOT 0.2 BILIDIR 0.1 Recent Labs 04/14/2065604/12/20 0110 04/11/20 0030 CALCIUM 9.9 8.6 9.2 PHOS 4.1 2.7 2.8 No results for input(s): PT, INR, PTT in the last 168 hours. No results for input(s): CK, TROPONINT in the last 168 hours. FSBG Trend Recent Labs 04/14/20 0654 04/13/20 2035 04/13/20 1642 04/13/20 1133 04/13/20 0637 04/13/20 0409 04/13/20 0055 04/12/20 2030 04/12/20 1514 04/12/20 1145 POCGLU 128 134 132 126 125 125 99 164 136 132 MICRO: No results for input(s): URINECULTURE in the last 720 hours. No results for input(s): GRAMSTAIN, BFCX, LOWERRESPCX, TISSUECX in the last 720 hours. Recent Labs 04/05/20 1608 04/05/20 1725 BLOODCX No growth at 5 days. No growth at 5 days. IMAGING: Results for orders placed or performed during the hospital encounter of 04/05/20 XR Abdomen 1 view (Generic) (Exam End: 04/06/2020 10:59 AM) Impression Relative paucity of bowel gas. There is a Dobbhoff tube with tip projecting over the distal stomach. Left lower lobe atelectasis. Thank you for letting us participate in the care of this patient. For questions regarding this report, please contact the number below. Inpatient Medications: Scheduled ??? insulin lispro 1-6 Units Subcutaneous TID AC ??? docusate sodium 200 mg Oral BID And ??? sennosides 17.6 mg Per NG tube BID ??? folic acid 1 mg Oral Daily ??? magnesium oxide 400 mg Oral BID ??? pantoprazole EC 40 mg Oral Daily ??? cloNIDine 0.1 mg Oral BID ??? melatonin 6 mg Oral Nightly ??? sodium chloride 0.9 % (flush) 5 mL Intravenous BID ??? heparin (Porcine) 5,000 Units Subcutaneous Q8H BASIL ??? thiamine 100 mg Oral Daily Continuous infusions: PRN: acetaminophen, polyethylene glycoL (MIRALAX) oral powder, lactulose, ondansetron, bisacodyL, glucose 40% oral geL OR dextrose 10% OR glucagon (human recombinant), sodium chloride 0.9 % (flush), lidocaine Assessment: Toyin Lion is a 64 y.o. female with hx of GERD, HLD, HTN, DM II, Hx of TIA, obesity, SIMMONS cirrhosis, who presents in transfer from [facility] to [facility] on 04/05 for severe agitation of unclear etiology. By OSH report patient had stopped her lyrica and there is some thought that this contributed to herpresentation, although she also had a UTI. Pt has completed treatment for her UTI and her sensorium/alertness/orientation continues to improve. Significant improvement in mental status this AM. REmoved DHT and pt now tolerating regular diet. Pt remembers most events now. Started lactulose which pt has been on at home, for cirrhosis. Appreciate nursing support and PT/OT eval. # acute toxic encephalopathy # hypoactive delirium # SIMMONS cirrhosis # Hx of TIA - Melatonin nightly - thiamine to 100mg PO - folic acid 1mg daily - mental status significantly improving - restarted lactulose - holding lyrica # UTI - completed course of ceftriaxone # Malnutrition # DM II # HTN # GERD - ISS - pantoprazole - clonidine TID - INSPECTING AND TESTING LEAD HAND assessment: carb control diet IV access/ MIVF PIV DVT prophylaxis heparin PT/OT/INSPECTING AND TESTING LEAD HAND PT/OT Wound care Anticipated Disposition rehab Team Pager (MD Coverage 03/05): [phone] PCP Cass Abebe APRN SHARED VISIT Erik Morales MD 04/14/2020 * Erik Morales MD - 04/13/2020 7:53 AM EDT Hospital Medicine Daily Progress Note Admit Date: 04/05/2020 Hospital Day 8 days There are no hospital problems to display for this patient. 24 Hour Events: - suh removed, pt able to void - able to use commode as well - did report nausea, that responded well to zofran - neuro checks unchanged, with slightly improved awareness/alertness ROS: Limited Denies chest pain, shortness of breath, pain Physical Exam Vitals Range last 24 hrs Temperature Temp: [36.4 ??C (97.5 ??F)-36.7 ??C (98.1 ??F)] Heart Rate Heart Rate: [82-97] Blood Pressure BP: (105-150)/(60-90) Respiratory Rate Resp: [16-27] SpO2 SpO2: [96 %-100 %] Intake/Output Summary (Last 24 hours) at 04/13/2020 0753 Last data filed at 04/12/2020 1757 Gross per 24 hour Intake 1128.9 ml Output 860 ml Net 268.9 ml Patient Vitals for the past 168 hrs: Weight 04/12/20 0000 79 kg (174 lb 2.6 oz) 04/11/20 0200 77.4 kg (170 lb 9.6 oz) 04/09/200 76.6 kg (168 lb 14 oz) 04/08/20 2200 77.7 kg (171 lb 4.8 oz) 04/08/20 0200 77.9 kg (171 lb 11.8 oz) 04/07/20 0100 78.2 kg (172 lb 6.4 oz) Body mass index is 30.86 kg/m??. Estimated Creatinine Clearance: 52.4 mL/min (based on SCr of 1.05 mg/dL). CONSTITUTIONAL: alert, appears uncomfortable NEURO: oriented, following commands but slow to respond, improving HEENT: PERRLA, CHEST: RRR LUNGS: CTAB ABDOMEN: soft, NABS, (-) tenderness EXTREMITIES: (-) edema, pulses full and equal, major muscle groups equal movement in strength but weak throughout SKIN: moist, (-) rash Studies reviewed in eDH. Remarkable for the following: LABS: Recent Labs 04/12/20 01104/11/20 0030 04/10/20 0535 WBC 7.7 10.1* 11.6* HGB 9.1* 9.7* 11.3* HCT 28.3* 30.2* 35.7 PLATELET 108* 136* 170 Recent Labs 04/12/20 0110 04/11/20 0030 04/10/20 0535 NA 140 139 139 K 4.1 4.2 4.2 CL 105 100 99 CO2 24 27 27 BUN 32* 42* 32* CREATININE 1.05 1.46* 1.28* Recent Labs 04/12/20 0110 AST Not Perf ALT 15 ALKPHOS 80 BILITOT 0.2 BILIDIR 0.1 Recent Labs 04/12/20 0110 04/11/20 0030 04/10/20 0535 CALCIUM 8.6 9.2 10.0 PHOS 2.7 2.8 3.0 No results for input(s): PT, INR, PTT in the last 168 hours. No results for input(s): CK, TROPONINT in the last 168 hours. FSBG Trend Recent Labs 04/13/20 0637 04/13/20 0409 04/13/20 0055 04/12/20 2030 04/12/20 1514 04/12/20 1145 04/12/20 0742 04/12/20 0539 04/12/20 0113 04/11/20 2149 POCGLU 125 125 99 164 136 132 153 167 164 180 MICRO: No results for input(s): URINECULTURE in the last 720 hours. No results for input(s): GRAMSTAIN, BFCX, LOWERRESPCX, TISSUECX in the last 720 hours. Recent Labs 04/05/20 1608 04/05/20 1725 BLOODCX No growth at 5 days. No growth at 5 days. IMAGING: Results for orders placed or performed during the hospital encounter of 04/05/20 XR Abdomen 1 view (Generic) (Exam End: 04/06/2020 10:59 AM) Impression Relative paucity of bowel gas. There is a Dobbhoff tube with tip projecting over the distal stomach. Left lower lobe atelectasis. Thank you for letting us participate in the care of this patient. For questions regarding this report, please contact the number below. Inpatient Medications: Scheduled ??? cloNIDine 0.1 mg Oral TID ??? melatonin 6 mg Oral Nightly ??? magnesium oxide 400 mg Per NG tube BID ??? docusate sodium 200 mg Per NG tube BID And ??? sennosides 17.6 mg Per NG tube BID ??? pantoprazole 40 mg Intravenous Daily ??? insulin lispro 2-8 Units Subcutaneous Q4H BASIL ??? sodium chloride 0.9 % (flush) 5 mL Intravenous BID ??? heparin (Porcine) 5,000 Units Subcutaneous Q8H BASIL ??? folic acid 1 mg Intravenous Daily ??? thiamine 100 mg Oral Daily Continuous infusions: ??? lactated Ringers 75 mL/hr (04/13/20627) PRN: ondansetron, polyethylene glycoL (MIRALAX) oral powder, bisacodyL, acetaminophen, labetalol, hydrALAZINE, glucose 40% oral geL OR dextrose 10% OR glucagon (human recombinant), sodium chloride 0.9 % (flush), lidocaine Assessment: Toyin Lion is a 64 y.o. female with hx of GERD, HLD, HTN, DM II, Hx of TIA, obesity, SIMMONS cirrhosis, who presents in transfer from [facility] to [facility] on 04/05 for severe agitation of unclear etiology. By OSH report patient had stopped her lyrica and there is some thought that this contributed to herpresentation, although she also had a UTI. Pt has completed treatment for her UTI and her sensorium/alertness/orientation continues to improve. Significant improvement in mental status this AM. Will remove DHT and stop IVF and encourage PO intake. Appreciate nursing support and PT/OT eval. # acute toxic encephalopathy # hypoactive delirium # SIMMONS cirrhosis # Hx of TIA - Melatonin nightly - thiamine to 100mg PO - folic acid 1mg daily - mental status significantly improving # UTI - completed course of ceftriaxone # Malnutrition # DM II # HTN # GERD - ISS - pantoprazole - clonidine TID - INSPECTING AND TESTING LEAD HAND assessment: puree diet and thin liquids; pills crushed IV access/ MIVF PIV DVT prophylaxis heparin PT/OT/INSPECTING AND TESTING LEAD HAND PT/OT Wound care Anticipated Disposition rehab Team Pager ( Coverage 03/05): [phone] PCP Cass Abebe APRN SHARED VISIT Erik Morales MD 04/13/2020 * Lila Orozco APRN - 04/12/2020 11:16 AM EDT Hospital Medicine Daily Progress Note Admit Date: 04/05/2020 Hospital Day 7 days There are no hospital problems to display for this patient. 24 Hour Events: - no acute events - continues with Q4 hr neuro checks ROS: Limited Denies chest pain, shortness of breath, pain Physical Exam Vitals Range last 24 hrs Temperature Temp: [36.4 ??C (97.5 ??F)-37 ??C (98.6 ??F)] Heart Rate Heart Rate: [82-102] Blood Pressure BP: (103-152)/(49-85) Respiratory Rate Resp: [14-28] SpO2 SpO2: [97 %-100 %] Intake/Output Summary (Last 24 hours) at 04/12/2020 1116 Last data filed at 04/12/2020 1000 Gross per 24 hour Intake 2961 ml Output 1820 ml Net 1141 ml Patient Vitals for the past 168 hrs: Weight 04/12/20 0000 79 kg (174 lb 2.6 oz) 04/11/20 0200 77.4 kg (170 lb 9.6 oz) 04/09/20 2200 76.6 kg (168 lb 14 oz) 04/08/20 2200 77.7 kg (171 lb 4.8 oz) 04/08/20 0200 77.9 kg (171 lb 11.8 oz) 04/07/20 0100 78.2 kg (172 lb 6.4 oz) 04/06/20 0100 78.8 kg (173 lb 11.6 oz) 04/05/20 1537 79.6 kg (175 lb 7.8 oz) Body mass index is 30.86 kg/m??. Estimated Creatinine Clearance: 52.4 mL/min (based on SCr of 1.05 mg/dL). CONSTITUTIONAL: lethargic, slowly moving around in bed NEURO: oriented, following commands but slow to respond HEENT: PERRLA, CHEST: RRR LUNGS: CTAB ABDOMEN: soft, NABS, (-) tenderness EXTREMITIES: (-) edema, pulses full and equal, major muscle groups equal movement in strength but weak throughout SKIN: moist, (-) rash Studies reviewed in eDH. Remarkable for the following: LABS: Recent Labs 04/12/20 0110 04/11/20 0030 04/10/20 0535 WBC 7.7 10.1* 11.6* HGB 9.1* 9.7* 11.3* HCT 28.3* 30.2* 35.7 PLATELET 108* 136* 170 Recent Labs 04/12/20 0110 04/11/20 0030 04/10/20 0535 NA 140 139 139 K 4.1 4.2 4.2 CL 105 100 99 CO2 24 27 27 BUN 32* 42* 32* CREATININE 1.05 1.46* 1.28* Recent Labs 04/05/20 1542 AST 22 ALT 15 ALKPHOS 72 BILITOT 0.4 BILIDIR 0.1 Recent Labs 04/12/20 0110 04/11/20 0030 04/10/20 0535 CALCIUM 8.6 9.2 10.0 PHOS 2.7 2.8 3.0 Recent Labs 04/05/20 1542 PT 13.8* INR 1.2 No results for input(s): CK, TROPONINT in the last 168 hours. FSBG Trend Recent Labs 04/12/20 0742 04/12/20 0539 04/12/20 0113 04/11/20 2149 04/11/20 2034 04/11/20 1645 04/11/20 1226 04/11/20 0801 04/11/20 0407 04/11/20 0052 POCGLU 153 167 164 180 167 213* 144 182 138 206* MICRO: No results for input(s): URINECULTURE in the last 720 hours. No results for input(s): GRAMSTAIN, BFCX, LOWERRESPCX, TISSUECX in the last 720 hours. Recent Labs 04/05/20 1608 04/05/20 1725 BLOODCX No growth at 5 days. No growth at 5 days. ECG: Recent Labs 04/10/20 0937 DIAGLINE Sinus tachycardia with Premature supraventricular complexes possible Inferior infarct , age undetermined possible Anterior infarct , age undetermined vs lead placement T wave abnormality, consider lateral ischemia Prolonged QT Abnormal ECG When compared with ECG of 08-APR-2020 12:39, Premature supraventricular complexes are now Present T wave inversion now evident in Anterolateral leads artifact present; may impede interpretation Confirmed by Debbi Zimmer ([email or web address]) on 04/10/2020 2:55:30 PM QTCCALC 567 VASCULAR: No results for input(s): VBTEXTRPT in the last 720 hours. IMAGING: Results for orders placed or performed during the hospital encounter of 04/05/20 XR Abdomen 1 view (Generic) (Exam End: 04/06/2020 10:59 AM) Impression Relative paucity of bowel gas. There is a Dobbhoff tube with tip projecting over the distal stomach. Left lower lobe atelectasis. Thank you for letting us participate in the care of this patient. For questions regarding this report, please contact the number below. Inpatient Medications: Scheduled ??? cloNIDine 0.1 mg Oral TID ??? melatonin 6 mg Oral Nightly ??? magnesium oxide 400 mg Per NG tube BID ??? docusate sodium 200 mg Per NG tube BID And ??? sennosides 17.6 mg Per NG tube BID ??? pantoprazole 40 mg Intravenous Daily ??? insulin lispro 2-8 Units Subcutaneous Q4H BASIL ??? sodium chloride 0.9 % (flush) 5 mL Intravenous BID ??? heparin (Porcine) 5,000 Units Subcutaneous Q8H BASIL ??? folic acid 1 mg Intravenous Daily ??? thiamine 100 mg Oral Daily Continuous infusions: ??? lactated Ringers 75 mL/hr (04/11/20 6269) PRN: ondansetron, polyethylene glycoL (MIRALAX) oral powder, bisacodyL, acetaminophen, labetalol, hydrALAZINE, glucose 40% oral geL OR dextrose 10% OR glucagon (human recombinant), sodium chloride 0.9 % (flush), lidocaine Assessment: Toyin Lion is a 64 y.o. female with hx of GERD, HLD, HTN, DM II, Hx of TIA, obesity, SIMMONS cirrhosis, who presents in transfer from [facility] to [facility] on 04/05 for severe agitation of unclear etiology. Patient had stopped her lyrica and there is some thought that this could be contributing. She continues to become more alert. Will transfer patient to the floor today. Tube feeds on hold to promote PO intake. # acute toxic encephalopathy # hypoactive delirium # SIMMONS cirrhosis # Hx of TIA - Melatonin nightly - change thiamine to 100mg PO starting 04/12 - folic acid 1mg daily - Cognitively impaired restraints as needed - consider discontinuing suh catheter today - Consider MRI brain # UTI - completed course of ceftriaxone # Malnutrition # DM II # HTN # GERD - ISS - pantoprazole - clonidine TID - tube feeds on hold to promote PO intake - INSPECTING AND TESTING LEAD HAND assessment: puree diet and thin liquids; pills crushed IV access/ MIVF PIV Tubes/ Drains Dobhoff DVT prophylaxis heparin PT/OT/INSPECTING AND TESTING LEAD HAND PT/OT Wound care Anticipated Disposition rehab Team Pager (MD Coverage 03/05): [phone] PCP Cass Abebe APRN SHARED VISIT This patient was seen in conjunction with Dr. Morales as part of a shared visit. Lila Orozco APRN 04/12/2020 Associated attestation - Erik Morales MD - 04/12/2020 11:26 AM EDT I saw and evaluated the patient and discussed the care with Lila Orozco as part of a shared visit. I agree with the findings and plan as documented in the note. Pt continues to make slow recovery and more alert/oriented. Will d/c TF and monitor for increased PO intake. Appreciate SLT input. Can decrease neuro checks to q shift and transfer from [facility] given improving condition. Still unclear what inciting event was for her acute toxic metabolic encephalopathy. Erik Morales MD 04/12/2020 * Yvonne Zhang RN - 04/12/2020 10:54 AM EDT Pt was alert, and only confused to situation this morning. Complained of nausea; zofran given. Tylenol given for REYNOLDS and sore throat. Pt resting comfortably. TF stopped around 0930. LR continued. Report to be called to RN on for room 153. * Lila Orozco APRN - 04/11/2020 3:28 PM EDT Hospital Medicine Daily Progress Note Admit Date: 04/05/2020 Hospital Day 6 days There are no hospital problems to display for this patient. 24 Hour Events: - continuing to wake up more - no acute events - continues with Q4 hr neuro checks ROS: Limited Denies chest pain, shortness of breath, pain Physical Exam Vitals Range last 24 hrs Temperature Temp: [36.4 ??C (97.5 ??F)-37.1 ??C (98.8 ??F)] Heart Rate Heart Rate: [89-105] Blood Pressure BP: (97-133)/(45-70) Respiratory Rate Resp: [14-25] SpO2 SpO2: [91 %-100 %] Intake/Output Summary (Last 24 hours) at 04/11/2020 1529 Last data filed at 04/11/2020 1200 Gross per 24 hour Intake 2431 ml Output 1015 ml Net 1416 ml Patient Vitals for the past 168 hrs: Weight 04/11/20 0200 77.4 kg (170 lb 9.6 oz) 04/09/20 2200 76.6 kg (168 lb 14 oz) 04/08/20 2200 77.7 kg (171 lb 4.8 oz) 04/08/20 0200 77.9 kg (171 lb 11.8 oz) 04/07/20 0100 78.2 kg (172 lb 6.4 oz) 04/06/20 0100 78.8 kg (173 lb 11.6 oz) 04/05/20 1537 79.6 kg (175 lb 7.8 oz) Body mass index is 30.23 kg/m??. Estimated Creatinine Clearance: 37.3 mL/min (A) (based on SCr of 1.46 mg/dL (H)). CONSTITUTIONAL: lethargic, slowly moving around in bed NEURO: oriented, following commands but slow to respond HEENT: PERRLA, CHEST: RRR LUNGS: CTAB ABDOMEN: soft, NABS, (-) tenderness EXTREMITIES: (-) edema, pulses full and equal SKIN: moist, (-) rash Studies reviewed in eDH. Remarkable for the following: LABS: Recent Labs 04/11/20 0030 04/10/20 0535 04/09/20 0430 WBC 10.1* 11.6* 15.0* HGB 9.7* 11.3* 10.5* HCT 30.2* 35.7 32.3* PLATELET 136* 170 232 Recent Labs 04/11/20 0030 04/10/20 0535 04/09/20 1116 04/09/20 0430 NA 139 139 -- 138 K 4.2 4.2 4.2 3.7 CL 100 99 -- 99 CO2 27 27 -- 24 BUN 42* 32* -- 22* CREATININE 1.46* 1.28* -- 1.21* Recent Labs 04/05/20 1542 AST 22 ALT 15 ALKPHOS 72 BILITOT 0.4 BILIDIR 0.1 Recent Labs 04/11/20 0030 04/10/20 0535 04/09/20 0430 CALCIUM 9.2 10.0 9.8 PHOS 2.8 3.0 2.6 Recent Labs 04/05/20 1542 PT 13.8* INR 1.2 No results for input(s): CK, TROPONINT in the last 168 hours. FSBG Trend Recent Labs 04/11/20 1226 04/11/20 0801 04/11/20 0407 04/11/20 0052 04/10/20 2213 04/10/20 1617 04/10/20 1220 04/10/20 0855 04/10/20 0414 04/10/20 0012 POCGLU 144 182 138 206* 190 199 183 192 198 213* MICRO: No results for input(s): URINECULTURE in the last 720 hours. No results for input(s): GRAMSTAIN, BFCX, LOWERRESPCX, TISSUECX in the last 720 hours. Recent Labs 04/05/20 1608 04/05/20 1725 BLOODCX No growth at 5 days. No growth at 5 days. ECG: Recent Labs 04/10/20 0937 DIAGLINE Sinus tachycardia with Premature supraventricular complexes possible Inferior infarct , age undetermined possible Anterior infarct , age undetermined vs lead placement T wave abnormality, consider lateral ischemia Prolonged QT Abnormal ECG When compared with ECG of 08-APR-2020 12:39, Premature supraventricular complexes are now Present T wave inversion now evident in Anterolateral leads artifact present; may impede interpretation Confirmed by Debbi Zimmer ([id number]) on 04/10/2020 2:55:30 PM QTCCALC 567 VASCULAR: No results for input(s): VBTEXTRPT in the last 720 hours. IMAGING: Results for orders placed or performed during the hospital encounter of 06/26/20 XR Abdomen 1 view (Generic) (Exam End: 04/06/2020 10:59 AM) Impression Relative paucity of bowel gas. There is a Dobbhoff tube with tip projecting over the distal stomach. Left lower lobe atelectasis. Thank you for letting us participate in the care of this patient. For questions regarding this report, please contact the number below. Inpatient Medications: Scheduled ??? cloNIDine 0.1 mg Oral TID ??? melatonin 6 mg Oral Nightly ??? magnesium oxide 400 mg Per NG tube BID ??? docusate sodium 200 mg Per NG tube BID And ??? sennosides 17.6 mg Per NG tube BID ??? pantoprazole 40 mg Intravenous Daily ??? insulin lispro 2-8 Units Subcutaneous Q4H BASIL ??? sodium chloride 0.9 % (flush) 5 mL Intravenous BID ??? heparin (Porcine) 5,000 Units Subcutaneous Q8H BASIL ??? folic acid 1 mg Intravenous Daily ??? [START ON 04/12/2020] thiamine 100 mg Oral Daily Continuous infusions: ??? lactated Ringers 75 mL/hr (04/11/20 0801) ??? tube feeding diet 800 mL (04/10/208) PRN: polyethylene glycoL (MIRALAX) oral powder, bisacodyL, acetaminophen, labetalol, hydrALAZINE, glucose 40% oral geL OR dextrose 10% OR glucagon (human recombinant), sodium chloride 0.9 % (flush), lidocaine Assessment: Toyin Lion is a 64 y.o. female with hx of GERD, HLD, HTN, DM II, Hx of TIA, obesity, SIMMONS cirrhosis, who presents in transfer from [facility] to [facility] on 04/05 for severe agitation of unclear etiology. Patient had stopped her lyrica and there is some thought that this could be contributing. She has improved mental status today. She is slow to respond, but appropriate. Given that she is more awake and engaged will have INSPECTING AND TESTING LEAD HAND assess. Continue to get her OOB at least twice per day. Will continue to avoid altering medications and promoting sleep wake cycle. # acute toxic encephalopathy # hypoactive delirium - Clonidine 0.1mg TID - Melatonin nightly - change thiamine to 100mg PO starting 04/12 - folic acid 1mg daily - Cognitively impaired restraints as needed # UTI - completed course of ceftriaxone # Malnutrition # DM II - ISS - tube feeds - INSPECTING AND TESTING LEAD HAND assessment IV access/ MIVF PIV Tubes/ Drains Dobhoff DVT prophylaxis heparin PT/OT/INSPECTING AND TESTING LEAD HAND PT/OT Wound care Anticipated Disposition rehab Team Pager (MD Coverage 03/05): [phone] PCP Cass Abebe APRN SHARED VISIT This patient was seen in conjunction with Dr. Morales as part of a shared visit. Lila Orozco APRN 04/11/2020 Associated attestation - Erik Morales MD - 04/11/2020 3:56 PM EDT I saw and evaluated the patient and discussed the care with Lila Orozco as part of a shared visit. I agree with the findings and plan as documented in the note. Patient slowly becoming more alert and oriented. Before advancing diet and removing DHT will engage SLT. Reasonable to obtain EEG given prior concern for lyrica withdrawal and persistent toxic metabolic encephalopathy. Will cont treat ment for UTI as this is likely contributing as well. Erik Morales MD 04/11/2020 * Kristina Bull MSW - 04/11/2020 12:31 PM EDT Received update from RN-CM that patient's daughter, Linda, was asking about guardianship for patient. DOCUMENT RESTORER contacted Dr Morales who feels that patient's mental status is likely to improve as she recovers. He does not support need for guardianship at this time DOCUMENT RESTORER left for patient's daughter, Linda, encouraging her to call back Office of Case Management- Social Work Note FRANCE Timmons, [facility] Pager [phone] Addendum: Received call from patient's daughter, Linda. Provided education to her regarding the Guardianship process for hearings/appointment of a guardian. Explained that currently patient is suffering from delirium which the doctors anticipate to be an acute condition, so they are not in support of the need for guardianship at this time. Provided reassurance that guardianship could be obtained in a matter of 1-2 weeks as Linda voices her main concern is patient's finances. Linda reports she has already covered patient's bills for this month, but is worried about her ability to do so for May if patient remains confused. Informed Linda that patient is no longer meeting ICU criteria and is awaiting placement on another floor. Provided her with the contact information for the [id number] child welfare social worker (Enoc Parker). Encouraged her to reach out to them early next week to see if patient remains confused and if so, if guardianship is appropriate at that time * Chema Byrne, RD - 04/11/2020 12:25 PM EDT Nutrition Progress Note Toyin Nelson Vianca??is a 64 y.o.??female??admitted from [facility]??with??severe agitation and altered mental status of unclear etiology, relevant medical history includes??GERD, HLD, HTN, T2DM [taken off Metformin 11/2019 for rising Cr],??CKD,??TIA, Obesity, Suspected SleepApnea, Chronic Constipation, SIMMONS Cirrhosis. Reason for intervention: Follow up and ICU Tube-feeding Nutrition Recommendations: Continue with current tube feedings of Nutren 2.0 at 40 ml/hr. This formula is concentrated; may need additional free water when IVF d/c. Suggest daily BMP, magnesium and phosphorus. Consider escalating bowel regimen as no bm x 5 days. I was able to discuss plan with provider Aracely Orozco APRN. Message sent via secure chat. All Active TF Orders: Tubefeeding Orders (From admission, onward) Start Dose/Rate Route Frequency Ordered Stop 04/09/202114 tube feeding diet Nutren 2.0 at 40 ml/hr 800 mL 40 mL/hr Per NG tube CONTINUOUS 04/09/202016 This rate is calculated to compensate for unplanned time off feedings due to potential procedures, etc. At goal, this will provide 800 ml formula, 1600 calories, 67 grams protein, 554 ml water from formula and 100% of RDI's for vitamins and minerals. Enteral access: dobhoff Oxygen Therapy/airway: O2 Device: None (Room air) Lab Results Component Value Date NA 139 04/11/2020 K 4.2 04/11/2020 CL 100 04/11/2020 CO2 27 04/11/2020 BUN 42 (H) 04/11/2020 CREATININE 1.46 (H) 04/11/2020 GFRAA 43 (L) 04/11/2020 MAGNESIUM 0.90 04/11/2020 CALCIUM 9.2 04/11/2020 PHOS 2.8 04/11/2020 AST 22 04/05/2020 ALT 15 04/05/2020 ALKPHOS 72 04/05/2020 BILITOT 0.4 04/05/2020 BILIDIR 0.1 04/05/2020 Lab Results Component Value Date POCGLU 182 04/11/2020 POCGLU 138 04/11/2020 POCGLU 206 (H) 04/11/2020 POCGLU 190 04/10/2020 POCGLU 199 04/10/2020 Skin Status: Shift Pressure Injury Prevention Occiput: No Injury Thoracic Spine: No Injury Sacral: No Injury Ischial - left: No Injury Ischial - right: No Injury Heel - left: No Injury Heel - right: No Injury Elbow - left: No Injury Elbow - right: No Injury Device Sites: O2 sat monitor, IV sites, suh, ECG Leads, BP Cuff Other Sites: ID Band Relevant medications: LR at 75 ml/hr, colace 2 x day, folic acid, lispro, magnesium oxide, senokot 2 x day, thiamine, others noted 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 as calculated from the following: Height as of this encounter: 160 cm (5' 2.99). Weight as of this encounter: 77.4 kg (170 lb 9.6 oz). Gibson Body Weight: 52.2 kg Usual Body Weight: UTD Wt Readings from Last 10 Encounters: 04/11/20 77.4 kg (170 lb 9.6 oz) 05/25/14 85.3 kg (188 lb) 01/14/12 81.2 kg (179 lb) 05/25/11 86.6 kg (191 lb) Assessment: Nutrition intake and intake history/Interview: tube feedings are at goal and tolerating. No bm x 5 days. Estimated needs: Calories:??6371-6288??(20-25??kcal/kg ABW)? Protein:??65-75??grams (1.2-1.5??g/kg) Average tube feeding provision over past 2 days; 919mL vs daily goal volume of 800 formula (100% ofgoal) Tolerance or barriers to meeting needs: lack of bm x 5 days Nutrition Focused Physical Exam (NFPE): Not performed - altered mental status, pt restless and agitated ?? Protein-calorie Malnutrition: Not identified (Elvia, JPEN J Parenteral Enteral Nutr. 2011; 36(3): 273-83) ?? Nutrition to continue to follow up while inpatient CHEMA BYRNE RD Pager #:[phone] * Linda Becerril RN - 04/11/2020 10:34 AM EDT Transferred from MICU to ISCU status on 04/10 DX: Hypoactive delirium, severe agitation Ongoing issues include Alert/tracks voice, Unable to follow commands Continued agitation Tube feeds at goal PT recommending SNF Rehab UTI--treating w/ceftriaxone DME: TBD Prior to admission patient: per daughters pt was independent, driving and mowing the lawn helping other seniors Patient goal for discharge: complete treatment and go home Discharge planning to date: monitor pt progress and recommendations from providers MARYSOL called Linda Bacon (daughter) [phone]. Updated her on pt status. CM reviewed with her that physical therapy is recommending snf rehab. CM told her about Medicare.gov site to review/compare snf rehabs. MARYSOL asked for 3-4 choices. Daughter did not want to give cm any rehabs at this time till she reviewed them. Daughter understands that pt may not go to first choice. Daughter would also like to start the guardianship proceedings. She is concerned about pts finances, speaking to Healthcare [employer], handling bills, and pt is POA/HCPOA for an Uncle. CM advised her that she would have [employer] callher as they handle the guardianships. CM did tell her it is a process and does not happen quickly. Dyan qiu stated she understood, just is someone who would rather be prepared than not. CM asked FRANCE Simmons to follow up with pt.. CM will continue to follow and assist with discharge planning and coordination of care with input from patient, family and team as indicated Linda Becerril RNCM Pgr: [phone] * Reyes Aguilar MD - 04/10/2020 8:07 AM EDT Critical Care Medicine Staff Progress Note 64 y.o. female with the following active issues: E coli UTI Acute encephalopathy Acute agitation Prolonged QTc 24 hr events/subjective: More calm. Slept well. No fever. PE Vitals: HR-111 BP-134/59 Sat-98%onRA Gen: Female in NAD, lying in bed CVS: Tachy, regular, no murmur heard Lungs: CTA anteriorly Abd: +BS, soft, nontender Ext: No peripheral edema Neuro: Tracked to voice Labs WBC-11.8 Hgb-11.3 Plt-170 K-4.2 BUN-32 Cr-1.28 Studies none ASSESSMENT, MANAGEMENT, and DECISION MAKING: This 64 yo female w/ significant SIMMONS cirrhosis, DM was transferred from [facility] w/ acute encephalopathy. She is having ongoing significant delirium and agitation.. Initial presentation was felt to be due to Lyrica withdrawal. She was treated w/ multiple benzos, causing a paradoxical response. W/u negthere except for an E coli UTI which is being treated w/ ceftriaxone. Holding all psychotropic meds. On clonidine due to recent Precedex use and would reduce over next few days. She is more calm today and slept w/ melatonin. Transfer to Hospital Medicine. I want to continue only medication for sleep. No change melatonin. Checking QTc as it was prolonged on most recent check. Completes ceftriaxone today. Continuing TFs. Not ready for swallow eval. SQ heparin. IS PATIENT CRITICALLY ILL ? Is there a high potential of sudden, clinically significant, or life threatening deterioration? No Is there a need for direct personal assessment and management to treat/prevent multiple vital organfailure/deterioration? No If this patient is not critically ill, the reason for continued hospitalization is acute encephalopathy requiring IV medication and close nursing monitoring for patient safety PATIENT IS CRITICALLY ILL WITH THESE DIAGNOSES BEING MANAGED BY CCS TEAM: I personally performed XXX minutes of aggregate critical care time exclusive of procedures and teaching. This includes time during direct patient evaluation and reassessment, interpreting labs and studies, directing life and/or organ supporting organ interventions, and documentation on the unit. * Chema Byrne RD - 04/09/2020 10:39 AM EDT Nutrition Progress Note Toyin Lion is a 64 y.o. female admitted from [facility] with severe agitation and altered mental status of unclear etiology, relevant medical history includes GERD, HLD, HTN, T2DM [taken off Metformin 11/2019 for rising Cr], CKD, TIA, Obesity, Suspected Sleep Apnea, Chronic Constipation, SIMMONS Cirrhosis Reason for intervention: Follow up and ICU Tube-feeding Nutrition Recommendations: Requiring supplements of potassium and magnesium, and phos is low normal. Nepro is low in electrolytes. Suggest change tube feedings to Nutren 2.0 with a goal rate of 40 ml per hour. This rate is calculated to compensate for unplanned time off feedings due to potential procedures, etc. At goal, this will provide 800 ml formula, 1600 calories, 67 grams protein, 554 ml water from formula and 100% of RDI's for vitamins and minerals. This formula is concentrated; may need additional free water. Continue to check magnesium and phosphorus with daily labs. May need more aggressive bowel regimen. I was not able to discuss with patient's provider. Team paged with nutrition recommendations. Pager# [phone]. All Active TF Orders: Tubefeeding Orders (From admission, onward) Start Dose/Rate Route Frequency Ordered Stop 04/06/20 1345 tube feeding diet Nepro at 42 ml/hr 840 mL 42 mL/hr Per NG tube CONTINUOUS 04/06/20 1251 This rate is calculated to compensate for unplanned time off feedings due to potential procedures, etc. At goal, this will provide 840 ml formula, 1512 calories, 68 grams protein, 609 ml water from formula and 88% of RDI's for vitamins and minerals. Enteral access: dobhoff Oxygen Therapy/airway: O2 Device: None (Room air) Lab Results Component Value Date NA 138 04/09/2020 K 3.7 04/09/2020 CL 99 04/09/2020 CO2 24 04/09/2020 BUN 22 (H) 04/09/2020 CREATININE 1.21 (H) 04/09/2020 GFRAA 54 (L) 04/09/2020 MAGNESIUM 0.91 04/09/2020 CALCIUM 9.8 04/09/2020 PHOS 2.6 04/09/2020 AST 22 04/05/2020 ALT 15 04/05/2020 ALKPHOS 72 04/05/2020 BILITOT 0.4 04/05/2020 BILIDIR 0.1 04/05/2020 Lab Results Component Value Date POCGLU 224 (H) 04/09/2020 POCGLU 190 04/09/2020 POCGLU 215 (H) 04/09/2020 POCGLU 181 04/08/2020 POCGLU 183 04/08/2020 POCGLU 92 04/08/2020 Skin Status: Shift Pressure Injury Prevention Occiput: No Injury Thoracic Spine: No Injury Sacral: No Injury Ischial - left: No Injury Ischial - right: No Injury Heel - left: No Injury Heel - right: No Injury Elbow - left: No Injury Elbow - right: No Injury Device Sites: O2 sat monitor, IV sites, suh, ECG Leads, BP Cuff Other Sites: ID Band, Bilat mitts, Tish Relevant medications: lispro, folic acid, thiamine, magnesium oxide, potassium replacement protocol, bowel meds, others noted Last Bowel Movement: 04/06/20, formed I/O from last 2 shifts: Intake/Output Summary (Last 24 hours) at 04/09/2020 1040 Last data filed at 04/09/2020 1000 Gross per 24 hour Intake 2037 ml Output 1935 ml Net 102 ml Admit Weight: 79.6 kg Estimated body mass index is 30.35 kg/m?? as calculated from the following: Height as of this encounter: 160 cm (5' 2.99). Weight as of this encounter: 77.7 kg (171 lb 4.8 oz). Gibson Body Weight: 52.2 kg Usual Body Weight: UTD Wt Readings from Last 10 Encounters: 04/08/20 77.7 kg (171 lb 4.8 oz) 05/25/14 85.3 kg (188 lb) 01/14/12 81.2 kg (179 lb) 05/25/11 86.6 kg (191 lb) Assessment: Nutrition intake and intake history/Interview: tube feedings are at goal. Estimated needs: Calories: 2173-7839 (20-25 kcal/kg ABW) Protein: 65-75 grams (1.2-1.5 g/kg) Average tube feeding provision over past 3 days; 744mL vs daily goal volume of 840 formula (88% of goal) Tolerance or barriers to meeting needs: tub e feedings are at goal Nutrition Focused Physical Exam (NFPE): Not performed - pt restless and agitated Protein-calorie Malnutrition: Not identified (Elvia JPEN J Parenteral Enteral Nutr. 2011; 36(3): 273-83) Nutrition to continue to follow up while inpatient CHEMA BYRNE RD Pager #:[phone] * Reyes Aguilar MD - 04/09/2020 8:55 AM EDT Critical Care Medicine Staff Progress Note 64 y.o. female with the following active issues: E coli UTI Acute encephalopathy Acute agitation Prolonged QTc 24 hr events/subjective: Didn't sleep. Clonidine started for tachycardia off Precedex. No fever. Still agitated, but not worse. QTc prolonged and now off Haldol. PE Vitals: T-36.5 HR-122 BP-133/70 Sat-98%onRA Gen: Agitated female, lying in bed CVS: Tachy, regular, no murmu heard Lungs: CTA anteriorly Abd: +BS, soft, nontender Ext: No peripheral edema Neuro: Tracked, but didn't respond to voice otherwise Labs WBC-15 Hgb-10.5 Plt-232 K-3.7 BUN-22 Cr-1.2 Studies none ASSESSMENT, MANAGEMENT, and DECISION MAKING: This 64 yo female w/ significant SIMMONS cirrhosis, DM was transferred from [facility] w/ acute encephalopathy. She is having ongoing significant delirium and agitation.. Initial presentation was felt to be due to Lyrica withdrawal. She was treated w/ multiple benzos, causing a paradoxical response. W/u negthere except for an E coli UTI which is being treated w/ ceftriaxone. She is unchanged from yesterday w/o improvement or deterioration in the agitation. At this time, I don't want to change anything or pursue w/u for another cause. Continuing to limit psychotropic medications, including antipsychotics due to prolonged QTc WBC is elevated today to 15 w/o any clinical change or other evidence of infection. Will follow. IS PATIENT CRITICALLY ILL ? Is there a high potential of sudden, clinically significant, or life threatening deterioration? No Is there a need for direct personal assessment and management to treat/prevent multiple vital organfailure/deterioration? No If this patient is not critically ill, the reason for continued hospitalization is acute encephalopathy requiring IV medication and close nursing monitoring for patient safety PATIENT IS CRITICALLY ILL WITH THESE DIAGNOSES BEING MANAGED BY CCS TEAM: I personally performed XXX minutes of aggregate critical care time exclusive of procedures and teaching. This includes time during direct patient evaluation and reassessment, interpreting labs and studies, directing life and/or organ supporting organ interventions, and documentation on the unit. * Tom Barros RN - 04/08/2020 2:52 PM EDT Images from the original note were not included. ML dressing change, bruising noted to insertion site. * Reyes Aguilar MD - 04/08/2020 8:17 AM EDT Critical Care Medicine Staff Progress Note 64 y.o. female with the following active issues: E coli UTI Acute encephalopathy Acute agitation 24 hr events/subjective: Received Haldol x1 overnight. Precedex stopped. No fever. No hemodynamic compromise. PE Vitals: T-36.9 HR-62 BP-138/48 Sat-96%onRA Gen: Agitated female, lying in bed CVS: RRR Lungs: CTA anteriorly Abd: +BS, soft, nontender Ext: No peripheral edema Neuro: Moaning, mildly interactive Labs WBC-8.9 Hgb-9.1 Plt-174 K-3.8 BUN-28 Cr-1.2 Studies none ASSESSMENT, MANAGEMENT, and DECISION MAKING: This 64 yo female w/ significant SIMMONS cirrhosis, DM was transferred w/ acute encephalopathy from [facility] w/ ongoing delirium agitation. Initial presentation was felt to be due to Lyrica withdrawal and was treated w/ multiple benzos, causing a paradoxical response. W/u neg there except for an E coli UTI. I want to limit psychotropic medications. Now off Precedex. Using pen haldol and may consider long-acting PO antipsychotic depending on symptoms today. Continuing ceftriaxone for UTI. TFs, SQ heparin, ISS. IS PATIENT CRITICALLY ILL ? Is there a high potential of sudden, clinically significant, or life threatening deterioration? No Is there a need for direct personal assessment and management to treat/prevent multiple vital organfailure/deterioration? No If this patient is not critically ill, the reason for continued hospitalization is acute encephalopathy requiring IV medication PATIENT IS CRITICALLY ILL WITH THESE DIAGNOSES BEING MANAGED BY CCS TEAM: I personally performed XXX minutes of aggregate critical care time exclusive of procedures and teaching. This includes time during direct patient evaluation and reassessment, interpreting labs and studies, directing life and/or organ supporting organ interventions, and documentation on the unit. * Yann Franco MD - 04/07/2020 8:08 AM EDT MICU STAFF PROGRESS NOTE Critical Care Medicine Author: Yann Franco MD Patient seen and examined on critical care rounds. Brief HPI: Toyin Lion is a 64 y.o. woman in the MICU for management of an acute agitated delirium of uncertain etiology. Active Problem and Important Diagnoses: ?? Acute encephalopathy/Agitated delirium ?? Type 2 diabetes mellitus E coli UTI ?? SIMMONS Cirrhosis ASSESSMENT, MANAGEMENT, and DECISION MAKING: Still delirious, but more intelligible at times. She has had no benzodiazepine since arrival, but she has received some haldol for agitation. Will minimize treating and redirect as possible. Continueto titrate dexmedetomidine for agitation targeting lowest adequate dose including none. Suspect etiology of her acute encephalopathy is medication related especially insetting of bland CSF fluid. On ceftriaxone for E coli UTI from before admission here. Plan to complete 7-day course. She had one day prior to transfer here. Started enteric feeds. On venous thromboembolism prophylaxis. EXAM: Physical Exam Constitutional: She appears well-developed and well-nourished. She is uncooperative. She does not appear ill. No distress. Cardiovascular: Normal rate, regular rhythm and normal heart sounds. Pulmonary/Chest: Effort normal and breath sounds normal. Abdominal: Soft. She exhibits no distension. Neurological: She is alert. GCS eye subscore is 4. GCS verbal subscore is 4. GCS motor subscore is 5. Skin: Skin is warm and dry. Last value Range last 24 hrs Temperature Temp: 36.6 ??C (97.9 ??F) Temp: [36.4 ??C (97.5 ??F)-36.8 ??C (98.2 ??F)] Heart Rate Heart Rate: 77 Heart Rate: [56-93] Blood Pressure BP: 157/62 BP: (149-194)/(58-82) Respiratory Rate Resp: 16 Resp: [13-26] SpO2 SpO2: 97 % SpO2: [94 %-100 %] Art BP BP (Arterial Line): -- Last Ht 04/05/20 160 cm (5' 2.99) Last Wt 04/07/20 78.2 kg (172 lb 6.4 oz) Body mass index is 30.55 kg/m??. IS PATIENT CRITICALLY ILL ? Is there a high potential of sudden, clinically significant, or life threatening deterioration? Yes Is there a need for direct personal assessment and management to treat/prevent multiple vital organfailure/deterioration? Yes If this patient is not critically ill, I certify the patient requires continued in-patient hospitalization for: NA PATIENT IS CRITICALLY ILL WITH THESE DIAGNOSES BEING MANAGED BY CCS TEAM: Encephalopathy Acute I personally performed 35 minutes of aggregate critical care time exclusive of procedures and teaching. This includes time spent during direct patient evaluation and reassessment, interpreting diagnostic tests, directing life and/or organ supporting interventions and documentation on the unit. Yann Franco MD, PhD 04/07/2020 * Jessica Mendez, RD - 04/06/2020 9:12 AM EDT Nutrition Consult Note Toyin Lion is a 64 y.o. female admitted from [facility] with severe agitation and altered mental status of unclear etiology, relevant medical history includes GERD, HLD, HTN, T2DM [taken off Metformin 11/2019 for rising Cr], CKD, TIA, Obesity, Suspected Sleep Apnea, Chronic Constipation, SIMMONS Cirrhosis Reason for intervention: Consult: Tube Feed Rec's Nutrition Recommendations: Nepro with a goal rate of 42 ml per hour plus 0 scoop(s) of protein powder daily. This rate is calculated to compensate for unplanned time off feedings due to potential procedures, etc. At goal, this will provide 840 ml formula, 1512 calories, 68 grams protein, 600 ml water from formula + 0 ml water from protein powder administration and 88% of RDI's for vitamins and minerals. -Continue Mg and Phos on daily labs for now -Biweekly weights appreciated I was not able to discuss with patient's provider. Team paged with nutrition recommendations. Pager# [phone]. All Active TF Orders: Tubefeeding Orders (From admission, onward) None Enteral access: DHT Oxygen Therapy/airway: O2 Device: None (Room air) Lab Results Component Value Date NA 141 04/06/2020 K 3.8 04/06/2020 CL 105 04/06/2020 CO2 23 04/06/2020 BUN 14 04/06/2020 CREATININE 1.22 (H) 04/06/2020 GFRAA 53 (L) 04/06/2020 MAGNESIUM 0.75 04/06/2020 CALCIUM 8.9 04/06/2020 PHOS 3.2 04/06/2020 AST 22 04/05/2020 ALT 15 04/05/2020 ALKPHOS 72 04/05/2020 BILITOT 0.4 04/05/2020 BILIDIR 0.1 04/05/2020 Lab Results Component Value Date POCGLU 89 04/06/2020 POCGLU 152 04/06/2020 POCGLU 73 04/06/2020 POCGLU 165 04/05/2020 POCGLU 120 04/05/2020 Skin Status: Shift Pressure Injury Prevention Occiput: No Injury Thoracic Spine: No Injury Sacral: Redness, Blanchable(moisture fissuer) Ischial - left: No Injury Ischial - right: No Injury Heel - left: No Injury Heel - right: No Injury Elbow - left: No Injury Elbow - right: No Injury Device Sites: O2 sat monitor, oxygen tubing, wrist restraints, IV sites, suh, ECG Leads, BP Cuff,other (see comments) Other Sites: ID band Relevant medications: bowel meds, folic acid, thiamine, insulin (humalog), protonix, others noted in eDH. Last Bowel Movement: (per report from RODERICK Alcantar at [facility], multiple BMs today 04/05) I/O from last 2 shifts: Intake/Output Summary (Last 24 hours) at 04/06/2020 09 Last data filed at 04/06/2020 0624 Gross per 24 hour Intake 738 ml Output 850 ml Net -112 ml Admit Weight: 79.6 kg Estimated body mass index is 30.78 kg/m?? as calculated from the following: Height as of this encounter: 160 cm (5' 2.99). Weight as of this encounter: 78.8 kg (173 lb 11.6 oz). Gibson Body Weight: 52.2 kg (115#) Usual Body Weight: UTD Wt Readings from Last 10 Encounters: 04/06/20 78.8 kg (173 lb 11.6 oz) 05/25/14 85.3 kg (188 lb) 01/14/12 81.2 kg (179 lb) 05/25/11 86.6 kg (191 lb) Assessment: Nutrition intake and intake history/Interview: n/a Estimated needs: Calories: 0233-4431 (20-25 kcal/kg ABW) Protein: 65-75 grams (1.2-1.5 g/kg) Tolerance or barriers to meeting needs: n/a Nutrition Focused Physical Exam (NFPE): Not performed Protein-calorie Malnutrition: Not identified (Elvia, JPEN J Parenteral Enteral Nutr. 2012 February; 36(3): 273-83) Thank you, Nutrition to continue to follow up while inpatient Jessica Mendez RD Pager #:[phone] * Yann Franco MD - 04/06/2020 8:09 AM EDT MICU STAFF PROGRESS NOTE Critical Care Medicine Author: Yann Franco MD Patient seen and examined on critical care rounds. Brief HPI: Toyin Lion is a 64 y.o. woman in the MICU for management of an acute agitated delirium of uncertain etiology. Active Problem and Important Diagnoses: ?? Acute encephalopathy/Agitated delirium ?? Type 2 diabetes mellitus E coli UTI ?? SIMMONS Cirrhosis ASSESSMENT, MANAGEMENT, and DECISION MAKING: She remains delirious, but is following commands and yelling out. Greatly improved after stopped all benzodiazepine consistent with paradoxical reaction to benzodiazepine. Will try small dose of Hadol for her agitation. Avoid further benzodiazepine as possible. She had a urine culture at [facility] with 100k E coli and fever we were not informed about until this morning. Will continue ceftriaxone started for this infection identified before transfer. Suh removed. He creatine is up slightly. She needs nutrition. Will place a small bore feeding tube. EXAM: Physical Exam Constitutional: She appears well-developed and well-nourished. She is uncooperative. She does not appear ill. No distress. Cardiovascular: Normal rate, regular rhythm and normal heart sounds. Pulmonary/Chest: Effort normal and breath sounds normal. Abdominal: Soft. She exhibits no distension. Neurological: She is alert. GCS eye subscore is 4. GCS verbal subscore is 4. GCS motor subscore is 5. Skin: Skin is warm and dry. Last value Range last 24 hrs Temperature Temp: 36.2 ??C (97.2 ??F) Temp: [36.2 ??C (97.2 ??F)-37.2 ??C (99 ??F)] Heart Rate Heart Rate: 57 Heart Rate: [57-89] Blood Pressure BP: 137/62 BP: (124-172)/(42-99) Respiratory Rate Resp: 20 Resp: [13-30] SpO2 SpO2: 96 % SpO2: [94 %-99 %] Art BP BP (Arterial Line): -- Last Ht 04/05/20 160 cm (5' 2.99) Last Wt 04/06/20 78.8 kg (173 lb 11.6 oz) Body mass index is 30.78 kg/m??. IS PATIENT CRITICALLY ILL ? Is there a high potential of sudden, clinically significant, or life threatening deterioration? Yes Is there a need for direct personal assessment and management to treat/prevent multiple vital organfailure/deterioration? Yes If this patient is not critically ill, I certify the patient requires continued in-patient hospitalization for: NA PATIENT IS CRITICALLY ILL WITH THESE DIAGNOSES BEING MANAGED BY CCS TEAM: Encephalopathy Acute I personally performed 30 minutes of aggregate critical care time exclusive of procedures and teaching. This includes time spent during direct patient evaluation and reassessment, interpreting diagnostic tests, directing life and/or organ supporting interventions and documentation on the unit. Yann Franco MD, PhD 04/06/2020 * Yann Franco MD - 04/05/2020 4:47 PM EDT MICU STAFF PROGRESS NOTE Critical Care Medicine Author: Yann Franco MD Patient seen and examined on critical care rounds. Brief HPI: Toyin Lion is a 64 y.o. woman in the MICU for management of an acute agitated deliriumof uncertain etiology. Active Problem and Important Diagnoses: ?? Acute encephalopathy ?? Type 2 diabetes mellitus ?? SIMMONS Cirrhosis ASSESSMENT, MANAGEMENT, and DECISION MAKING: Etiology of the encephalopathy is uncertain. On arrival to the ICU we stopped her benzodiazepine infusion and made a small increase in her dexmedetomidine and she transitioned from agitated to sleeping. The causal relationship is unclear. She has had an extensive and unproductive work up including LP with no cells, normal glucose and minimally elevated protein. Picture is consistent with a withdrawal syndrome and surreptitious alcohol consumption is a consideration. A paradoxical reaction to benzodiazepine is also possible. Favor holding any additional benzodiazepines. And weaning dexmedetomidine. If she developed agitation will first try to manage with a neuroleptic, unless she is exhibiting clear signs of alcohol withdrawal. Thiamine and folate. EXAM: Physical Exam Constitutional: She appears well-developed and well-nourished. She is sleeping. She does not appearill. No distress. Cardiovascular: Normal rate, regular rhythm and normal heart sounds. Pulmonary/Chest: Effort normal and breath sounds normal. Abdominal: Soft. She exhibits no distension. Neurological: GCS eye subscore is 1. GCS verbal subscore is 4. GCS motor subscore is 5. Skin: Skin is warm and dry. Last value Range last 24 hrs Temperature Temp: (P) 36.6 ??C (97.9 ??F) Temp: [36.6 ??C (97.9 ??F)] Heart Rate Heart Rate: 66 Heart Rate: [64-70] Blood Pressure BP: 155/59 BP: (124-155)/(59-99) Respiratory Rate Resp: 20 Resp: [20-21] SpO2 SpO2: 97 % SpO2: [97 %-98 %] Art BP BP (Arterial Line): -- Last Ht 04/05/20 160 cm (5' 2.99) Last Wt 04/05/20 79.6 kg (175 lb 7.8 oz) Body mass index is 31.09 kg/m??. IS PATIENT CRITICALLY ILL ? Is there a high potential of sudden, clinically significant, or life threatening deterioration? Yes Is there a need for direct personal assessment and management to treat/prevent multiple vital organfailure/deterioration? Yes If this patient is not critically ill, I certify the patient requires continued in-patient hospitalization for: NA PATIENT IS CRITICALLY ILL WITH THESE DIAGNOSES BEING MANAGED BY CCS TEAM: Encephalopathy Acute I personally performed 45 minutes of aggregate critical care time exclusive of procedures and teaching. This includes time spent during direct patient evaluation and reassessment, interpreting diagnostic tests, directing life and/or organ supporting interventions and documentation on the unit. Yann Franco MD, PhD 04/05/2020 documented in this encounter H&P Notes * Dany Hernandez MD - 04/10/2020 12:20 PM EDT [facility] Medicine Attending Admission H&P Patient Name: TOYIN LION Date of : 1955 Age: 64 y.o. Hospital Admit Date: 04/05/2020 Inpatient Attending: Dr. Dany Hernandez PCP: Cass Abebe APRN Presenting Diagnosis/Chief Complaint: Hypoactive delirium History of Present Illness: Toyin Lion is a 64 y.o. female with hx of GERD, HLD, HTN, DM II, Hx of TIA, obesity, SIMMONS cirrhosis, who presents in transfer from [facility] to [facility] MICU on 04/05 for severe agitation of unclear etiology. Pt now improved and being transferred to Hospital Medicine. In chart review, it appears that pt presented to [facility] on 03/30/20 with primary complaint of SOB and worsening anxiety. Lyrica was also recently discontinued and there was some concern initially that presentation could be consistent with Lyrica withdrawal. VQ scan and venous dopplers were performed on 04/01 which ruled out PE and DVT respectively. She was then treated with escalating doses of Ativanfor presumed Lyrica withdrawal and then was ultimately started on an Ativan infusion. Pt's family denied current alcohol bause and notes she stopped drinking approximately [address] head wasunremarkable on 04/01/20. On 04/04, precedex was added. LP was performed and not consistent with infectious etiology and UA was concerning for infection and she was started on Ceftriaxone. Patient was then transferred to [facility]. On arrival, benzodiazepines were stopped as it was thought that she was having a paradoxical response, resulting in agitated delirium. Precedex was continued andshe received PRN Haldol. >100,000 E Coli.??Ceftriaxone [04/06/20-04/10/20] was added to cover this.??Her urine culture returned with 2 species of EColi, one >100,000 and one <50,000, both iqbal-se nsitive. Precedex was weaned off on 04/08 and in discussion with nursing, we have been dealing with hypoactive delirium and patient's periods of agitation are much reduced. Review of Systems: Unable to review due to mental status Past Medical History: Past Medical History: Diagnosis [...] (chronic kidney disease) N18.9 ??? Delirium R41.0 Past Surgical History: No past surgical history on file. Social History: Social History Socioeconomic History ??? Marital status: Spouse name: Not on file ??? Number of children: Not on file ??? Years of education: Not on file ??? Highest education level: Not on file Occupational History ??? Not on file Social Needs ??? Financial resource strain: Not on file ??? Food insecurity Worry: Not on file Inability: Not on file ??? Transportation needs Medical: Not on file Non-medical: Not on file Tobacco Use ??? Smoking status: Never Smoker ??? Smokeless tobacco: Never Used Substance and Sexual Activity ??? Alcohol use: Not Currently ??? Drug use: Yes Types: Marijuana Comment: has medical marijuana card- goes to dispensery ??? Sexual activity: Not Currently Lifestyle ??? Physical activity Days per week: Not on file Minutes per session: Not on file ??? Stress: Not on file Relationships ??? Social connections Talks on phone: Not on file Gets together: Not on file Attends [employer] service: Not on file Active member of club or organization: Not on file Attends meetings of clubs or organizations: Not on file Relationship status: Not on file ??? Intimate partner violence Fear of current or ex partner: Not on file Emotionally abused: Not on file Physically abused: Not on file Forced sexual activity: Not on file Other Topics Concern ??? Not on file Social History Narrative ??? Not on file Family History: No family history on file. Allergies: Allergies Allergen Reactions ??? Benzodiazepines Other (See Comments) Paradoxical reaction to benzodiazepines ??? House Dust ??? Hydrocodone-Acetaminophen Itching ??? Mold Extracts ??? Propoxyphene Hcl Nausea And Vomiting ??? Unknown [Unclassified Drug] Most environmental allergies: grass, workman, trees,pollen Medications: Medications Prior to Admission Medication Sig Dispense Refill Last Dose ??? nitroGLYcerin (NITROSTAT) 0.[address] 0.4 mg under the tongue every 5 minutes as needed. Unknown at Unknown time ??? NORTRIPTYLINE HCL (NORTRIPTYLINE ORAL) Take 40 mg by mouth nightly. Unknown at Unknown time ??? traMADol (ULTRAM) 50 mg tablet Take 50 mg by mouth nightly. Unknown at Unknown time ??? pantoprazole (PROTONIX) 40 mg tablet Take 1 tablet by mouth daily. 90 tablet 3 Unknown at Unknown time ??? gabapentin (NEURONTIN) 300 mg capsule Take 300 mg by mouth 3 times daily. Unknown at Unknown time ??? vitamin E 400 unit capsule Take 400 Units by mouth daily. Unknown at Unknown time ? ? FERROUS FUMARATE/VIT BCOMP&C (SUPER B COMPLEX ORAL) Take by mouth. Unknown at Unknown time ??? hydrochlorothiazide (HYDRODIURIL) 25 mg tablet Take 25 mg by mouth daily. Unknown at Unknown time ??? metFORMIN (GLUCOPHAGE) 1,000 mg tablet Take 1,000 mg by mouth 2 times daily. Unknown at Unknowntime PHYSICAL EXAM: Last value Range last 24 hrs Temperature Temp: 36.2 ??C (97.2 ??F) Temp: [36.2 ??C (97.2 ??F)-37 ??C (98.6 ??F)] Heart Rate Heart Rate: 97 Heart Rate: [97-117] Blood Pressure BP: 92/64 BP: (92-161)/(59-95) Respiratory Rate Resp: 24 Resp: [16-26] SpO2 SpO2: 97 % SpO2: [95 %-100 %] Gen: NAD, lying in chair HEENT: Oropharynx clear, dry mucus membranes CV: Normal rate, regular rhythm, No murmurs/rubs/gallops Pulm: Normal respiratory effort, speaking normally, CTAB Abd: Non-distended, normal bowel sounds in all 4 quadrants, soft, non-tender Ext: No pedal edema, 2+ radial/DP pulses Skin: Warm, dry, no rashes Neuro: Able to follow yes or no questions. Tracks voice Unable to squeeze my hand when asked. Withdrawals from painful stimuli in all 4 limbs. Pupils equal and reactive to light Equivocal babinski bilaterally High muscle tone LABS: Recent Labs 04/10/20 0535 04/09/20 0430 04/08/20 0305 WBC 11.6* 15.0* 8.9 HGB 11.3* 10.5* 9.1* HCT 35.7 32.3* 27.8* PLATELET 170 232 174 Recent Labs 04/05/20 1542 INR 1.2 Recent Labs 04/10/20 0535 04/09/20 1116 04/09/20 0430 04/08/20 0305 NA 139 -- 138 -- 142 K 4.2 4.2 3.7 < > 3.8 CL 99 -- 99 -- 106 CO2 27 -- 24 -- 27 BUN 32* -- 22* -- 26* CREATININE 1.28* -- 1.21* -- 1.18 < > = values in this interval not displayed. Recent Labs 04/05/20 1542 AST 22 ALT 15 ALKPHOS 72 BILITOT 0.4 BILIDIR 0.1 Recent Labs 04/10/20 0535 04/09/20 0430 04/08/20 0305 CALCIUM 10.0 9.8 9.2 MAGNESIUM 0.97 0.91 0.77 PHOS 3.0 2.6 2.3* No results for input(s): CK, TROPONINT in the last 168 hours. No results for input(s): TSH in the last 7068 hours. No results for input(s): HA1C in the last 7068 hours. Lab Results Component Value Date CHLPL 229 (H) 08/13/2010 HDL 50 08/13/2010 CHOLHDL 4.6 08/13/2010 TRIG 291 (H) 08/13/2010 LDLCHOL 121 (H) 08/13/2010 ASSESSMENT and PLAN: Toyin Lion is a 64 y.o. female with hx of GERD, HLD, HTN, DM II, Hx of TIA, obesity, SIMMONS cirrhosis, who presents in transfer from [facility] to [facility] on 04/05 for severe agitation of unclear etiology. Pt now improved and being transferred to Hospital Medicine. Etiology of initial presentation to [facility] is still unclear, however, it appears that paradoxical response to Ativan is contributory to admission to the [facility] MIC[facility]. Now patient is slowly improving. Will continue to monitor patient; she seems to be making slow progress daily. # Acute Toxic Encephalopathy # Hypoactive delirium - S/P Precedex wean - Continue to wean Clonidine 0.2mg to 0.1mg TID - Continue Melatonin QHS - Continue Thiamine 250mg (04/09-04/11), then Thiamine PO 100mg - Continue Folic acid 1mg QD - Cognitively impaired restraints for now with Coles vest. However, patient has not been requiring - To remain in ISCU level today given inability to follow commands. Likely can progress to regular floor tomorrow # UTI - Continue CTX (04/06-04/10) # Malnutrition - Continue tubefeeds through DHT - INSPECTING AND TESTING LEAD HAND evaluation when able to follow commands # DM II - Continue ISS ?? Admit to Hospital Medicine ?? If currently a smoker - advised about smoking cessation and will provide smoking cessation material and support. ?? Pneumovax and Influenza Immunizations given as needed. ?? IV access: pIV ?? DVT PPX: heparin ?? PT/OT required: ordered ?? Diet: Tube feeds Full Code Discussed case with daughter, Linda, and she would like to visit tomorrow Dany Hernandez MD Pager [phone] * Heavenly Magana, PROTECTIVE SIGNAL REPAIRER - 04/05/2020 6:17 PM EDT Critical Care Admission Note Toyin Lion is a 64 y.o. female with a PMH significant for GERD [on a PPI], HLD, HTN, Type II DM [taken off Metformin 11/2019 for rising Cr], TIA, Obesity, Suspected Sleep Apnea, Chronic Constipation, SIMMONS Cirrhosis, who presents in transfer from [facility] with severe agitation of unclear etiology. HPI: On 03/26/20 Toyin had a telehealth visit with a provider at [facility], during which she endorsed that shehad not been feeling well for a few weeks. She reported fatigue, anxiety, insomnia, constipation and intermittent pruritis. She was noted to have a rising creatinine [1.74, done on 03/27/20] and the plan was to refer her to Nephrology. She was also pending a sleep study for presumed KINGSLEY at the time. She presented to [facility] the night of 03/30/20 with a chief complaint ofshortness of breath and worsening anxiety. She was noted to be 'dry heaving' and tachycardic on arrival to the [facility] ED. Her family endorsed to [facility] that she had recently been taken off of her Lyrica due to her renal function, but symptoms, according to [facility] notes, seemed to have predated discontinuation of her Lyrica. During her evaluation in her ED she became progressively more anxious, diaphoretic and tachycardic and was noted to be 'pacing and out of bed'. She received a dose of Ativan at that point, with improvement in her anxiety and HR. Because of her tachycardia and slightly elevated DDimer, she underwent venous dopplers [on 04/01/20]and a VQ scan [on 04/01/20], which ruled out DVT and PE. They felt that her clinical picture seemed most consistent with Lyrica withdrawal, and treated her with escalating doses of Ativan, and ultimately an Ativan infusion. The patient's family denied current alcohol abuse, she reportedly stopped drinking about 10 years ago. She underwent a CT Head on 04/01/20, which was unremarkable, and had no physical/lateralizing deficits or findings concerning for a cerebrovascular event. On 04/04/20 Precedex was added, she was still on the Ativan Drip at that point with escalating doses, for acutely worsening agitation/combativeness, and at some point following, PRN Valium was also added, as well as standing BID Xanax. At that point a lumbar puncture was done and was not consistent with an infectious cause. Her UA at the time grew out <50,000 mixed gram positives, for which she was placed on Ceftriaxone. Pertinent Laboratory Data: From 03/30- -COVID-19 PCR: Negative -WBC: 9.3 -UDS: positive for tricyclics and THC -UA clean -AST / ALT: 27 / 30 TBili: 0.5 -Creatinine: 1.61 -Ammonia: <10 -INR: 1.1 -Blood x 2 NGTD -DDimer: 671 -Troponin I: <0.05 -Lipase: 151 CSF Results from LP on 04/04/20: -Clear, colorless -WBC: 0 -RBC: 0 -Glucose: 65 -Protein: 51 -No bacteria on GS -Culture: NGTD -Viral studies pending On arrival to [facility] she was pretty much obtunded on a Precedex drip, having received a total of 20mgof IV Versed enroute in divided doses. She was continued on Precedex, the Ativan drip she had been on at the OSH was not continued, and within a half hour she began to rouse. She remained agitated, but at times followed commands. Past Medical History: Diagnosis Date ??? CKD (chronic kidney disease) 04/05/2020 ??? Delirium 04/05/2020 ??? Diabetes mellitus type 2, uncomplicated 05/14/2014 ??? Hx-TIA (transient ischemic attack) 05/14/2014 ??? Hyperlipidemia 05/28/2014 Off statin due to foot pain side effect ??? Hypertension 05/28/2014 ??? Restless legs syndrome (RLS) 04/05/2020 Outpatient medications: No current facility-administered medications on file prior to encounter. Current Outpatient Medications on File Prior to Encounter Medication Sig Dispense Refill ??? nitroGLYcerin (NITROSTAT) 0.[address] 0.4 mg under the tongue every 5 minutes as needed. ??? NORTRIPTYLINE HCL (NORTRIPTYLINE ORAL) Take 40 mg by mouth nightly. ??? traMADol (ULTRAM) 50 mg tablet Take 50 mg by mouth nightly. ??? pantoprazole (PROTONIX) 40 mg tablet Take 1 tablet by mouth daily. 90 tablet 3 ??? gabapentin (NEURONTIN) 300 mg capsule Take 300 mg by mouth 3 times daily. ??? vitamin E 400 unit capsule Take 400 Units by mouth daily. ? ? FERROUS FUMARATE/VIT BCOMP&C (SUPER B COMPLEX ORAL) Take by mouth. ??? hydrochlorothiazide (HYDRODIURIL) 25 mg tablet Take 25 mg by mouth daily. ??? metFORMIN (GLUCOPHAGE) 1,000 mg tablet Take 1,000 mg by mouth 2 times daily. Allergies Allergen Reactions ??? House Dust ??? Hydrocodone-Acetaminophen Itching ??? Mold Extracts ??? Propoxyphene Hcl Nausea And Vomiting ??? Unknown [Unclassified Drug] Most environmental allergies: grass, workman, trees,pollen Last value Range last 24 hrs Temperature Temp: 36.6 ??C (97.9 ??F) Temp: [36.6 ??C (97.9 ??F)] Heart Rate Heart Rate: 64 Heart Rate: [64-75] Blood Pressure BP: 137/52 BP: (124-155)/(42-99) Respiratory Rate Resp: 30 Resp: [16-30] SpO2 SpO2: 99 % SpO2: [96 %-99 %] Art BP BP (Arterial Line): -- Labs: Last 3 wbc, hgb, hct plt Recent Labs 04/05/20 1542 WBC 9.0 HGB 8.5* HCT 26.4* PLATELET 140* Last 3 Lytes Recent Labs 04/05/20 1542 NA 144 K 3.6 CL 111* CO2 23 BUN 12 CREATININE 1.12 Last 3 LFTs Recent Labs 04/05/20 1542 AST 22 ALT 15 ALKPHOS 72 BILITOT 0.4 BILIDIR 0.1 Last Ca, Mg, Phos Recent Labs 04/05/20 1542 CALCIUM 8.0* PHOS 3.2 Last 3 Coags Recent Labs 04/05/20 1542 PT 13.8* INR 1.2 Last 3 ProBNP, Trop, CK No results for input(s): CK, TROPONINT, PROBNP in the last 168 hours. Assessment: This henry 64 year old female with the above past medical history who presents in transfer from [facility] with severe agitation and altered mental status of unclear etiology. While she may be suffering from some for of medication or alcohol withdrawal, her history does not clearly align with either. We will continue to treat what appears to be agitated delirium with Precedex and hold benzo'sat this time. Plan: Neuro: Altered mental status ?? Stop Ativan drip and start Precedex infusion ?? Neuro checks Q4 ?? Folic Acid and Wernicke-Dose Thiamine considering the possibility of underlying alcohol abuse and AMS. ?? CT Head and LP done at [facility] and unremarkable. Pulm: No acute issues, mild oxygen requirement. ?? Wean O2 as tolerated. ?? Pulmonary toileting when able to participate. CV: No acute issues. ?? Hemodynamically stable. ?? No current indication for AL nor CVC. GI: No acute issues/GERD by history. ?? NPO for now. ?? Will need enteral access in the next 24 hours if unable to take PO in, for nutrition. ?? LFTs and INR WNL. ?? Continue home PPI Renal/FEK: GETACHEW ?? Avoid nephrotoxic agents as able. ?? Daily lytes, replete as indicated. Hematology: No acute issues. ?? Heparin SQ for DVT chemoprophylaxis. ?? SCDs. ID: ?? Surveillance COVID-19 swab sent on arrival. ?? Blood culture, UA. Endocrine: No acute issues. ?? SSI Other prophylaxis: Heparin SQ for DVT prophylaxis Home Protonix for GI prophylaxis HOB > 30 Mepliex to sacrum PT/OT: pending. Lines/Tubes/Drains: Suh, PIV. Consults: None at this time. Decision Making: Daughter Code Status: FULL Disposition: ICU Heavenly Alberto Magana APRN April 05, 2020 Critical Care Green Team (pager [phone]) Dr. Franco is the attending of record for this admission documented in this encounter Procedure Notes * Cassie Wu - 04/11/2020 12:25 PM EDTAssociated Order(s): EEG AWAKE, ASLEEP, DROWSY [facility] Department of Neurology Inpatient EEG Report Name of the Patient: Toyin Lion Date of : 1955 Date of Service: 04/11/2020 Referring physician: Lila Orozco ARNP BRIEF HISTORY: Toyin Lion is a 64 y.o. patient with AMS. MEDICATIONS: Current Facility-Administered Medications Medication Dose Route Frequency Provider Last Rate Last Dose ??? cloNIDine (Catapres) tablet 0.1 mg 0.1 mg Oral TID Dany Hernandez MD 0.1 mg at 04/11/20 0939 ??? lactated ringers infusion 75 mL/hr Intravenous Continuous Dany Hernandez MD 75 mL/hr at 04/11/20 0801 75 mL/hr at 04/11/20 0801 ??? melatonin tablet 6 mg 6 mg Oral Nightly Dany Hernandez MD 6 mg at 04/10/202199 ??? tube feeding diet 800 mL Per NG tube Continuous Dany Hernandez MD 40 mL/hr at 04/10/20 2228 800 mLat 04/10/20 2228 ??? magnesium oxide (Mag-Ox) tablet 400 mg 400 mg Per NG tube BID Dany Hernandez MD 400 mg at ??? acetaminophen (Tylenol) (32.02 mg/mL) oral liquid 650 mg 650 mg Per NG tube Q4H PRN Dany Hernandez MD 650 mg at 04/10/202202 ??? docusate sodium (Colace) (10 mg/mL) oral liquid 200 mg 200 mg Per NG tube BID Dany Hernandez MD 200 mg at 04/11/2039 And ??? sennosides (Senokot) (1.76 mg/mL) oral liquid 17.6 mg 17.6 mg Per NG tube BID Dany Hernandez MD 17.6 mg at 04/11/2039 ??? labetalol (NORMODYNE,TRANDATE) injection 10 mg 10 mg Intravenous Q2H PRN Dany Hernandez MD 10 mg at 04/06/20 2305 ??? hydrALAZINE (APRESOLINE) injection 10 mg 10 mg Intravenous Q2H PRN Dany Hernandez MD ??? pantoprazole (PROTONIX) injection 40 mg 40 mg Intravenous Daily Dany Hernandez MD 40 mg at 04/11/20938 ??? glucose (GLUTOSE) 40% oral geL 15-30 g Buccal Q30 Min PRN Dany Hernandez MD Or ??? dextrose 10% infusion 250 mL Intravenous Q30 Min PRN Dany Hernandez MD Or ??? glucagon (human recombinant) injection SolR 1 mg 1 mg Intramuscular Q30 Min PRN Dany Hernandez MD ??? insulin lispro (HumaLOG) VIAL injection 2-8 Units 2-8 Units Subcutaneous Q4H Dany Cruz MD4 Units at 04/11/20 08 ??? sodium chloride 0.9 % (flush) flush 5 mL 5 mL Intravenous BID Dany Hernandez MD 5 mL at 04/11/20938 ??? sodium chloride 0.9 % (flush) flush 5-20 mL 5-20 mL Intravenous Q1 Min PRN Dany Hernandez MD ??? lidocaine (XYLOCAINE) 10 mg/mL (1 %) injection 3 mg 0.3 mL Subcutaneous Once PRN Dany Hernandez MD ??? heparin (Porcine) subcutaneous injection 5,000 Units 5,000 Units Subcutaneous Q8H Dany Cruz MD 5,000 Units at 04/11/20 08 ??? folic acid injection 1 mg 1 mg Intravenous Daily Dany Hernandez MD 1 mg at 04/11/20938 ??? [START ON 04/12/2020] thiamine (Vitamin B1) tablet 100 mg 100 mg Oral Daily Dany Hernandez MD METHODS: A 21 channel digitized electroencephalogram was performed in the [facility] Clinical Neurophysiology Laboratory. The 10/20 international system of electrode placement was used and bipolar and referential electrode montages were recorded. In addition to EEG the patient was monitored for EKGand lateral/vertical eye movements. Video was recorded during the session. The duration of the recording was 1 hour. GROUNDHAND'S REPORT: Performed by: CHASE Patient was not sleep deprived. Sleep was not attained. Photic stimulation was performed. Hyperventilation was not performed. Effort was was not adequate. Movement and other artifact was significant. Comments:none documented in this encounter Miscellaneous Notes * Plan of Care - Matthieu June, OT - 04/15/2020 2:57 PM EDT Occupational Therapy Treatment Note Treatment Number OT: 2 Patient Dx: Toyin Lion is a 64 y.o. female admitted on 04/05/2020 with PMHx significant SIMMONS cirrhosis, DM was transferred from [facility] w/ acute encephalopathy. She is having ongoing significant delirium and agitation.. Initial presentation was felt to be due to Lyrica withdrawal. She was treated w/ multiple benzos, causing a paradoxical response. W/u neg there except for an E coli UTI which is being treated w/ ceftriaxone.??Holding all psychotropic meds. On clonidine due to recent Precedex use and would reduce over next few days.??She is??more calm today and slept w/ melatonin. Social History: Patient was unable to provide details regarding social history or prior level of functioning secondary to delirium. Per chart Pt lives in a small house with 4 LEILANI. Granddaughter is staying in the upstairs bedroom. Home Setup: Bed and bath are on the main level. 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 ?? Precautions/Special Considerations: fall risk, activity as tolerated, aspiration precautions Interval History: remove DHT, patient eating S: I am doing better. O: Patient seen for skilled OT treatment, and demonstrated the following: ?? Self-care:Patient able to dress LB sitting in recliner SBA. Patient able to stand at sink and perform grooming task SBA. ?? Functional Mobility:Patient able to mobilize around room SBA with walker. ?? Cognition: ?? Behavior / Mood: alert and cooperative ?? Alert and oriented to: person, place and time ?? Follows commands: 1 step, 100% of the time and requires increased time ?? Attention: WFL ?? Safety awareness: cues for safety ?? Decrease STM [place] Cognitive Assessment (MoCA) Results: Comments Visuospatial/Exec 0/ Trails Test 0/ Cube Copy 10/11 Clock: Contour 10/11 Clock: Numbers 0 Clock: Hands Naming 3/3 (of 3) Attention 10/11 Repeat forward 10/11 Repeat backwards 10/11 Tapping for letter A 10/13 Serial 7 Subtraction (3pts=4+; 2pts=2+; 1pt=1) Language 2/2 Repeating Sentences Fluency 0/ Word Naming (1pt=11+ words) Abstraction 2/2 Similarities (Associations) Delayed Recall 10/15 (uncued) Orientation 10/11 Month 10/11 Date 10/11 Year 10/11 Day of the week 10/11 Location 10/11 City Add 1 point if 12 years of education or less TOTAL 20/30 Score of 26 or greater considered normal ? Vision:Wears glasses and WFL ?? Endurance:Patient with fair endurance ?? Vitals: O2 stats in 90 and HR 92-113 bpm Pain: Minimal discomfort Education: Pt/family/caregiver education ongoing regarding: Role of occupational therapy/rehabilitation, Transfers, Adaptive equipment training, ADL, Safety, Functional Mobility, Balance and Recommendations. Staff Communication: Patient status, treatment, and mobility recommendations discussed with nursing/other staff. ASSESSMENT: Patient is SBA with walker for mobility during ADLS with great gains. She continues to have decrease STM and executive functioning with need of support for higher level ADLS and IADLS such as medication management. Patient has supervision support from her supportive daughter who was available during treatment today. Patient's daughter seems to understanding MOCA results and reports she is able to provide the safety support her mother needs for home d/c. Pt will benefit from ongoing therapeutic interventions to achieve pt's and therapy goals Anticipated Discharge Disposition: home with assist, home with home health(home OT/PT and 24/7 supervision from her daughter) Equipment Recommendations: shower chair, FWW Daily schedule / Staff Recommendations: Continue to mobilize SBA with walker Goals: To be achieved by April 24, 2020 (MET) Pt will effectively utilize compensatory strategies to achieve orientation x4 with min assist. Pt will maintain attention during simple tasks for >5 minutes with <3 VCs. Pt will demonstrate fair seated balance at EOB for increased participation in ADLs. Pt will complete a grooming task with supervision assist and min cues. Pt will complete functional transfers with min assist for increased independence in ADLs. Pt will participate in UE strength/ROM/coordination exercises as appropriate for improved participation in daily tasks. Therapy Frequency: 2-4 times/wk Total Evaluation Minutes, Occupational Therapy: 35 T-F Pager: [phone] MATTHIEU JUNE OT Occupational Therapy Rehabilitation Department * Plan of Care - Maude Blackman, PT - 04/15/2020 1:51 PM EDT Physical Therapy Note Reassessment Treatment Number PT: 2 Patient profile: Toyin Lion??is a 64 y.o.??female??with hx of GERD, HLD, HTN, DM II, Hx of TIA, obesity, SIMMONS cirrhosis, who presents in transfer from [facility] to [facility] on 04/05 for severe agitation of unclear etiology. ??By OSH report patient had stopped her lyrica and there is some thought that this contributed to her presentation, although she also had a UTI. Pt has completed treatment for her UTI and her sensorium/alertness/orientation continues to improve. Significant improvement in mental status this AM. 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 Granddaughter is staying in the upstairs bedroom, and daughter will stay with her x 1 month. Precautions/Special Considerations: Fall Risk Mobility and Positioning Recommendations: ?? Pt mobilizes with CGA and RW ?? Please encourage up to chair for meal times as able. ?? Please encourage frequent walks in hallway with RW and chair following Subjective: I am feeling almost back to normal Objective: Patient seen for physical therapy and demonstrated the following: Pain: none Vital Signs: Stable on room air ?? Pt encountered in supine, agreeable to PT ?? To the EOB without assistance, sits unsupported ?? Sit to stand supervision ?? Ambulated 150 ft with RW and supervision with chair follow; took 3 brief seated rest breaks ?? Walked back to room and was left upright in recliner, all needs at her side, alarm on ?? Spoke to daughter (in visiting) who states she can provide 24/7 hands-on assistance, plans on purchasing a shower chair, and will stay with pt x 1 month in addition to granddaughter who lives upstairs Education: Home safety education Assessment: Toyin Lion was seen today for physical therapy treatment session for continuation of POC. Pt demonstrated significant improvement and was able to ambulate 150 ft with RW and supervision with three brief rest breaks. Patient is a&o x 3, has no pain, and followed all commands. She demonstrates slight balance impairments (uses RW whereas at baseline does not use an AD), and decreased activity tolerance, but moves well without physical assistance. Daughter and granddaughter will stay with patient and are able to provide 24/7 hands-pn assistance,as needed, as well as help with mobility and ADL management. Recommend home services to keep progressing patient's current functional status. Pt will benefit from ongoing therapeutic interventions to achieve therapy goals, plan of care updated. Discharge Recommendations: Home with 24/7 (daughter, granddaughter), and home PT/OT Consult Recommendations: No other consults recommended at this time. Equipment needs: Front-wheel walker Physical Therapy Goals: To be achieved by 04/24/2020: ?? 1. Pt. to demonstrate knowledge of safety limitations and precautions and will appropriately request assistance for functional activities and to mobilize. MET 2. Pt will tolerate progression towards upright with stable vital signs. MET 3. Pt to transition between supine and EOB with mod A MET 4. Pt to maintain EOB sitting with min A x 5 min to prepare for transfers MET 5. Pt to SPT between bed and recliner with mod A MET 6. Pt to ambulate 300 ft with supervision w/o AD 7. Pt to negotiate a FOS under supervision Plan: Therapy Frequency: 2-4 times/wk for as outlined in initial evaluation. Patient agrees with plan as stated. Time IN / OUT: 6077-2130 Total Evaluation Minutes, Physical Therapy: 35 Maude Blackman, DPT, NCS Pager: [phone] Physical Therapy Inpatient Rehabilitation Department * Plan of Care - Breanne Mohan, [facility] - 04/15/2020 8:31 AM EDT Speech-Language Pathology Consult Note Diet upgraded yesterday to regular consistency as pt's alertness and mental status was noted to be significantly improved. As per RN notes / report, pt has been tolerating diet well, they continue toencourage PO intake which is also improving. No further acute [facility] needs noted at this time. Please re-consult if indicated later in this hospitalization. Thank you for this referral. Breanne Mohan MA [facility] Inpatient Rehabilitation Medicine pager:# [phone] * Plan of Care - Felicitas Valera RN - 04/15/2020 4:21 AM EDT Problem: Patient Care Overview Goal: Plan of Care Review Outcome: Ongoing (Interventions Implemented as Appropriate) 04/14/20 0457 04/14/20 2100 Coping/Psychosocial Plan Of Care Reviewed With -- patient Plan of Care Review Progress progress towards functional goals is fair -- OUTCOME EVALUATION NOTE: OUTCOME SUMMARY: Patient alert and oriented x 4. VSS,Pt reports headache, PRN tylenol given x 1. She is voiding well, incontinent of bladder and bowel. One large loose BM tonight (on Lactulose with 2-3 BM/24h goal). No acute changes to Q shift neuro exam. Pt reports no SOB and no numbness or tingling. PO intake encouraged, tolerating diet advancement well. PLAN MOVING FORWARD: Pending PT eval, d/c planning, increase PO intake, BG monitoring INDIVIDUALIZED FALL PREVENTION INTERVENTIONS: Patient-specific fall risk factors per assessment: [current deficits]: Weakness, confusion Assistance [level of assistance required for transfers and ambulation]: Assist of two to BSC Supervision [direct monitoring required during toileting and ADLs]: Hands on Surveillance [continuous indirect monitoring]: Intentional rounding, fall precautions, call light in reach. masimo on Patient-specific fall prevention interventions for sensory deficits provided, if applicable: [X] N/A CPG GOAL OUTCOME EVALUATION: * Plan of Care - Ghazala Shaffer RN - 04/14/2020 3:04 PM EDT Problem: Patient Care Overview Goal: Plan of Care Review Outcome: Ongoing (Interventions Implemented as Appropriate) 04/14/20 0457 04/14/20 0900 Coping/Psychosocial Plan Of Care Reviewed With -- patient Plan of Care Review Progress progress towards functional goals is fair -- OUTCOME EVALUATION NOTE: OUTCOME SUMMARY: A+OX3-4, intermittently disoriented to situation. Pt is a lot more aware and alert this shift, up to the chair for some meals. VSS on RA. Assessment as documented. Diet increased to just a carb control diet and CHO counting level 3 after speech evaluated. Lactulose given PRN, pt had large BM today.Pt intermittently incontinent of both urine and stool, incontinence care provided. Otherwise, pt isup to the bedside commode with a 2A. Pt reports headache, PRN tylenol given. No acute changes to Q shift neuro exam. Pt reports no SOB and no numbness or tingling. PO intake encouraged, pt eating about 25-50% of meals. Safety maintained, WCTM. PLAN MOVING FORWARD: PT/OT eval. Encourage PO intake. Safety. Monitor VS. Safety. Monitor BG. INDIVIDUALIZED FALL PREVENTION INTERVENTIONS: Patient-specific fall risk factors per assessment: [current deficits]: IV. Weakness/mildy impaired. Assistance [level of assistance required for transfers and ambulation]: 2A Supervision [direct monitoring required during toileting and ADLs]: Hands on Surveillance [continuous indirect monitoring]: Masimo. Room near nursing station. Call cunningham within reach. Patient-specific fall prevention interventions for sensory deficits provided, if applicable: [X] Yes CPG GOAL OUTCOME EVALUATION: * Plan of Care - Breanne Mohan SLP - 04/14/2020 9:00 AM EDT Speech Therapy Note Patient Profile: (Taken from MD note today) Toyin Lion??is a 64 y.o.??female??with hx of GERD, HLD, HTN, DM II, Hx of TIA, obesity, NASHcirrhosis, who presents in transfer from [facility] to [facility] on 04/05 for severe agitation of unclear etiology. By OSH report patient had stopped her lyrica and there is some thought that this contributed to herpresentation, although she also had a UTI. Pt has completed treatment for her UTI and her sensorium/alertness/orientation continues to improve. Significant improvement in mental status this AM. Will remove DHT and stop IVF and encourage PO intake. Appreciate nursing support and PT/OT eval Interval History: Pt much more alert, responsive, oriented, looking through family pictures and mail, pt transferred to floor status and upgraded from puree diet to dysphagia soft w/ good tolerance as per pt and notes Subjective: Pt sitting up in chair for breakfast, pt denies any pre-existing swallowing concerns, she notes that she has some issues w/ GERD at baseline, and is diabetic; RN reports no concerns w/ swallowing oral medications Objective: Pt seen for dysphagia management and demonstrated the following: Pain: pt denies Respiratory Status: Room air Current Diet: Dysphagia Soft Diet 75/75/90 CHO counting level 3 Feeding / Oral Care Status: Pt is independent Cognitive-Linguistic Status: alert, oriented to person, place, and time and affect appropriate to mood Command Following: Follows multi-step commands Positioning: Pt up to chair Oral / Laryngeal Mechanism Clinical Assessment: Speech and Voice WNL, pt denies numbness, tingling or any weakness, oral ROM appears symmetrical and intact Bolus Presentation(s): ?? Thin liquid via straw ?? Regular solid Oral Preparatory Phase: WFL Pharyngeal Phase: appears WFL, no concerns noted or reported Esophageal Phase: no overt GERD noted w/ small trials performed today; pt does report a hx of GERD Education: Pt and RN educated re: findings and recommendation for diet upgrade and are in agreement Assessment: Pt was seen today for a follow-up [facility] visit. Swallowing status had been negatively impacted by drowsiness / AMS several days ago when she was evaluated by [facility]. As predicted, as AMS improved, so did swallowing function. No overt s/s dysphagia noted at this time. Diagnosis: swallow function now appears WNL; baseline Recommendations: Diet: Regular solids, Thin liquids; pt is on 75/75/90 CHO counting level 3 diet currently for diabetes PO medications: whole with sip of liquid Aspiration Precautions: Upright position during meals and for at least 30 mins following Excellent oral care Follow MD recommendations for use of over-the counter antacids and/or prescription medications. Eat smaller, more frequent meals. Sit upright, stand or walk after eating to help keep stomach acid from backing up into esophagus. Reduce consumption of fatty foods, caffeinated drinks, alcoholic beverages, tomato products, citrusjuices, spicy foods, mints and cigarettes. Speech Therapy Goals: Goals met. Pt will tolerate least restrictive diet without evidence of dysphagia / aspiration. Pt / caregiver will be independent with aspiration precautions, diet modifications, and safe swallowing strategies. Plan: Therapy Frequency: monitor for 1-2 more days then DC if pt/RN have no concerns. Pt./family are in agreement with treatment plan. Total Evaluation Minutes, Speech Language Pathology: 15 Breanne Mohan MA, CCC-[facility] Pager: [phone] Speech-Language Pathology Inpatient Rehabilitation Medicine * Plan of Care - Jeniffer Rojas RN - 04/14/2020 5:02 AM EDT Problem: Patient Care Overview Goal: Plan of Care Review Outcome: Ongoing (Interventions Implemented as Appropriate) 04/14/20 8759 Coping/Psychosocial Plan Of Care Reviewed With patient Plan of Care Review Progress progress towards functional goals is fair OUTCOME EVALUATION NOTE: OUTCOME SUMMARY: Pt is alert/confused, disoriented to situation, VSS< on RA. Pt complains of no pain, scheduled meds given. Pt up to the commode, intermittently incontinent, care given. Has 2 BMs overnight. Pt is currently in bed, bed alarm on.call light within reach, safety maintained. PLAN MOVING FORWARD: Monitor labs, PT/OT, placement INDIVIDUALIZED FALL PREVENTION INTERVENTIONS: Patient-specific fall risk factors per assessment: [current deficits]: IV site, Masimo, mobility mildly impaired Assistance [level of assistance required for transfers and ambulation]: 1-2A Supervision [direct monitoring required during toileting and ADLs]: Hand son Surveillance [continuous indirect monitoring]: Safety checks, bed alarm on, call light within reach, fall prevention maintained Patient-specific fall prevention interventions for sensory deficits provided, if applicable: [X] N/A CPG GOAL OUTCOME EVALUATION: * Plan of Care - Ghazala Shaffer RN - 04/13/2020 3:35 PM EDT Problem: Patient Care Overview Goal: Plan of Care Review Outcome: Ongoing (Interventions Implemented as Appropriate) 04/13/20 0447 04/13/20 0830 Coping/Psychosocial Plan Of Care Reviewed With -- patient Plan of Care Review Progress improving -- OUTCOME EVALUATION NOTE: OUTCOME SUMMARY: A+OX2, disoriented to time and situation. VSS on RA. Assessment as documented. Pt reports headache pain, PRN tylenol given. Pt reports no SOB and no numbness or tingling. NGT taken out per MD today. Pt is eating 25-50% of her meals. LR continuous fluids discontinued. Pt is intermittently incontinent of urine, incontinence care provided. Pt expresses how it upsets her that she is incontinent frequently, reassurance provided and peach pad and mesh underwear placed, pt feels better. Q shift neuro check performed, no acute changes. Lactulose given per the order, see MAR. Safety maintained, WCTM. PLAN MOVING FORWARD: Encourage PO intake. Safety. Monitor BG. Monitor VS. INDIVIDUALIZED FALL PREVENTION INTERVENTIONS: Patient-specific fall risk factors per assessment: [current deficits]: Weakness. Mildly impaired. IVs. Assistance [level of assistance required for transfers and ambulation]: 2A Supervision [direct monitoring required during toileting and ADLs]: Hands on Surveillance [continuous indirect monitoring]: Masimo. Room near nursing station. Call cunningham within reach. Bed alarm. Patient-specific fall prevention interventions for sensory deficits provided, if applicable: [X] Yes CPG GOAL OUTCOME EVALUATION: * Plan of Care - Tevin Aquino RN - 04/13/2020 4:52 AM EDT Problem: Patient Care Overview Goal: Plan of Care Review Outcome: Ongoing (Interventions Implemented as Appropriate) 04/13/20446 Coping/Psychosocial Plan Of Care Reviewed With patient Plan of Care Review Progress improving OUTCOME EVALUATION NOTE: OUTCOME SUMMARY: Patient is alert and oriented X2. X2A stand/pivot to BSC. Bedpan used overnight for urine. hoffin place. Lactated ringers at 75 mls/hr. PLAN MOVING FORWARD: Encourage PO intake INDIVIDUALIZED FALL PREVENTION INTERVENTIONS: Patient-specific fall risk factors per assessment: [current deficits]: Generalized weakness, confusion Assistance [level of assistance required for transfers and ambulation]: X2A Supervision [direct monitoring required during toileting and ADLs]: IV infusions Surveillance [continuous indirect monitoring]: No Patient-specific fall prevention interventions for sensory deficits provided, if applicable: [X] N/A CPG GOAL OUTCOME EVALUATION: Goal: Fall Prevention-Safe Patient Handling Outcome: Ongoing (Interventions Implemented as Appropriate) 04/13/20446 Restraint Interventions Safety Promotion/Fall Prevention activity supervised;fall prevention program maintained;nonskid shoes/slippers when out of bed;safety round/check completed Activity Activity Type activity adjusted per tolerance Activity Assistance Provided assistance, 2 people Assistive Device Utilized none Positioning Body Position supine, head elevated Daily Care Interventions Self-Care Promotion independence encouraged Barr[place] Fall Risk History of Falling 25 Secondary Diagnosis 15 Ambulatory Aids 0 Intravenous Therapy/Heparin/Saline Lock 20 Gait/Transferring 10 Mental Status 15 Score 85 OTHER Barragan Fall Risk High Goal: Infection Control Outcome: Ongoing (Interventions Implemented as Appropriate) 04/13/20446 Safety Interventions Isolation Precautions standard precautions maintained Infection Prevention environmental surveillance performed Coping Strategies Supportive Measures active listening utilized;self-care encouraged;verbalization of feelings encouraged Problem: Skin Integrity Impairment, Risk/Actual (Adult) Goal: Identify Related Risk Factors and Signs and Symptoms Related risk factors and signs and symptoms are identified upon initiation of Human Response Clinical Practice Guideline (CPG) Outcome: Ongoing (Interventions Implemented as Appropriate) 04/13/20446 Skin Integrity Impairment, Risk/Actual Skin Integrity Impairment, Risk/Actual: Related Risk Factors cognitive impairment;fluid/nutrition status;sensory impairment Goal: Skin Integrity/Wound Healing Patient will demonstrate the desired outcomes by discharge/transition of care. Outcome: Ongoing (Interventions Implemented as Appropriate) 04/13/20446 Skin Integrity Impairment, Risk/Actual (Adult) Skin Integrity/Wound Healing making progress toward outcome Problem: Sensory/Perceptual Alteration (Adult) Goal: Functional Ability/Safety Patient will demonstrate the desired outcomes by discharge/transition of care. Outcome: Ongoing (Interventions Implemented as Appropriate) 04/13/20446 Sensory/Perceptual Alteration (Adult) Functional Ability/Safety making progress toward outcome Goal: Balanced Response to Sensory Input Patient will demonstrate the desired outcomes by discharge/transition of care. Outcome: Ongoing (Interventions Implemented as Appropriate) 04/13/20446 Sensory/Perceptual Alteration (Adult) Balanced Response to Sensory Input making progress toward outcome * Plan of Care - Kristina Busby RN - 04/12/2020 8:05 PM EDT Problem: Patient Care Overview Goal: Plan of Care Review Outcome: Ongoing (Interventions Implemented as Appropriate) 04/12/209 04/12/20 1532 Coping/Psychosocial Plan Of Care Reviewed With -- patient Plan of Care Review Progress improving -- OUTCOME EVALUATION NOTE: OUTCOME SUMMARY: Pt A&Ox2, disoriented to situation and place. VSS on RA. IV running LR at 75 mL/ hour. Neuro check remains the same from ICU report. Assesment provided in flowsheet. Pt had dobhoff, used to put crushed meds. Arrived from the ICU around 2:30 with belongings. Pt was sleepy on arrival. D/c hiwot, POWER by 7 pm, able to pee by then. Frequently voiding, discussed using purewix, urge incontinence. Pt was able to stand pivot to commode to have a BM, passing gas. Pt ate dinner with assistance, tolerated fair. Pt remains free from fall, will continute to monitor and update with details. PLAN MOVING FORWARD: Rehab placement Reorientation I/O's INDIVIDUALIZED FALL PREVENTION INTERVENTIONS: Patient-specific fall risk factors per assessment: [current deficits]: Confusion, generalized weakness Assistance [level of assistance required for transfers and ambulation]: 2A Supervision [direct monitoring required during toileting and ADLs]: Hands on Surveillance [continuous indirect monitoring]: Call cunningham in reach, safety rounding done. Patient-specific fall prevention interventions for sensory deficits provided, if applicable: N/A Goal: Fall Prevention-Safe Patient Handling Outcome: Ongoing (Interventions Implemented as Appropriate) 04/12/20 1532 Barragan Fall Risk History of Falling 25 Secondary Diagnosis 15 Ambulatory Aids 0 Intravenous Therapy/Heparin/Saline Lock 20 Gait/Transferring 10 Mental Status 0 Score 70 OTHER Barragan Fall Risk High Restraint Interventions Safety Promotion/Fall Prevention activity supervised Positioning Body Position independent Activity Activity Type activity adjusted per tolerance Activity Assistance Provided assistance, 2 people Assistive Device Utilized mechanical lift Goal: Infection Control Outcome: Ongoing (Interventions Implemented as Appropriate) 04/12/20 1532 Safety Interventions Isolation Precautions standard precautions maintained Infection Prevention environmental surveillance performed Coping Strategies Supportive Measures active listening utilized * Plan of Care - Trish Rivera RN - 04/12/2020 4:23 AM EDT Problem: Patient Care Overview Goal: Plan of Care Review Outcome: Ongoing (Interventions Implemented as Appropriate) 04/12/20 0419 Coping/Psychosocial Plan Of Care Reviewed With patient Plan of Care Review Progress improving OUTCOME EVALUATION NOTE: OUTCOME SUMMARY: Patient alert and following commands. Able to make needs known. Stating tonight, I need to go to the bathroom. Pt able to move self side to side in bed. Assisted with bedpan. Pt able to have a medium, formed bowel movement after receiving bowel medications. Pt restless off and on overnight. Able to sleep some. Adequate U/O, VSS, afebrile. PLAN MOVING FORWARD: Continue to monitor mental status. INSPECTING AND TESTING LEAD HAND, PT/OT. Continue interventions in improve delerium. INDIVIDUALIZED FALL PREVENTION INTERVENTIONS: Patient-specific fall risk factors per assessment: [current deficits]: Lines, drains, weakness, delerium. Assistance [level of assistance required for transfers and ambulation]: Total assist with transfersOOB. Supervision [direct monitoring required during toileting and ADLs]: Hourly Rounding. Surveillance [continuous indirect monitoring]: [facility]. Patient-specific fall prevention interventions for sensory deficits provided, if applicable: [X] Yes CPG GOAL OUTCOME EVALUATION: * Plan of Care - Abad Mcwilliams RN - 04/11/2020 6:58 PM EDT OUTCOME EVALUATION NOTE: OUTCOME SUMMARY: Pt. remained stable throughout the shift. Stimulation provided to promote clearing delirium. OOB tochair for four hours this afternoon. Tish vest in place when in chair for safety. Oriented to self, month, and year. Asking for water. INSPECTING AND TESTING LEAD HAND to the bedside this afternoon to perform swallow evaluation, see note. Only took sips of water throughout the shift, no substantial PO intake. EEG completed asordered. PLAN MOVING FORWARD: Promote stimulation throughout the day and sleep at night. ?? INDIVIDUALIZED FALL PREVENTION INTERVENTIONS: ?? Patient-specific fall risk factors per assessment: [current deficits]: DHT, IV lines, suh catheter, telemetry, pulse oximetry. ?? Assistance [level of assistance required for transfers and ambulation]: Mechanical lift OOB. ?? Supervision [direct monitoring required during toileting and ADLs]: Dependent. ?? Surveillance [continuous indirect monitoring]: Telemetry, pulse oximetry. * Plan of Care - Grace Draper SLP - 04/11/2020 2:02 PM EDT Speech Therapy Bedside Swallow Evaluation Patient Profile: Toyin Lion??is a 64 y.o.??female??with hx of GERD, HLD, HTN, DM II, Hx of TIA, obesity, SIMMONS cirrhosis, who presents in transfer from [facility] to [facility] on 04/05 for severe agitation of unclear etiology. ?? Prior Level of Swallow Function: WFL Subjective: Pt very sleepy. Answers to name with very slow response. Challenged to follow directions. Eyes variably open but able to sit upright in chair for exam. Objective: Pt seen for evaluation today. Pain: pt unable to remark on pain. Respiratory Status: Room air Vision: aided with glasses Hearing: Functional for visit, true hearing acuity unknown. Current Diet: Sips and Chips (Give Meds) Feeding / Oral Care Status: Pt is dependent Cognitive-Linguistic Status: drowsy and Unable to assess Follows Commands: Unable to / difficult to assess at this time Positioning: Pt up to chair Oral / Laryngeal Mechanism Clinical Assessment: ?? Lingual: Pt did not follow commands for lingual ROM but did lick her lips functionally. ?? Labial / Buccal: Lips symmetric, but patient not able to perform lip movements to request. ?? Velar: Unable to assess. ?? Sensation: Unable to assess. ?? Vocal fold function and airway protection: Vocal quality quiet but clear. Spontaneous cough. ?? Speech Intelligibility: Reduced due to significant drowsiness. ?? Mucosa: WFL ?? Dentition: Appears to have her own teeth, unable to follow commands to show her teeth. Bolus Presentation(s) ?? Thin liquid via straw ?? Puree Oral Preparatory Phase ?? Mastication: n/a ?? Oral Transit: slow ?? Bolus Cohesion: slow ?? Labial Seal / Loss: Only with impaired timing with INSPECTING AND TESTING LEAD HAND when straw drinking. ?? Oral Stasis: None observed but would NOT offer this patient food thicker than puree. Pharyngeal Phase ?? Laryngeal Elevation: WFL ?? Vocal quality change: no ?? Cough / throat clear: Yes to thin liquids only when INSPECTING AND TESTING LEAD HAND removed straw without timing the swallowwell. ?? Pt. complaint of food getting stuck: no ?? Fatigue across trials: No, generalized extreme fatigue ?? Respiratory rate and respiratory swallow pattern: WFL Esophageal Phase ?? Appears to be WFL, No overt clinical s/s of esophageal phase dysphagia noted during this evaluation. Exam limited. Compensatory Techniques: Pts current mental status precluded discussion regarding swallowing plan of care. Education: Patient Was not educated on results and recommendations due to mental status. Patient status, treatment and swallow recommendations were discussed with nursing. Assessment: Toyin Lion??is a 64 y.o.??female??with hx of GERD, HLD, HTN, DM II, Hx of TIA, obesity, SIMMONS cirrhosis, who presents in transfer from [facility] to [facility] on 04/05 for severe agitation of unclear etiology. Pt Very drowsy but able to maintain upright position in chair for assessment and demonstrated ability to take water from straw and puree from spoon. Pt too sleepy to follow commands for her oral motor exam or for discussion regarding plan of care. Pt too drowsy likely to meet all of her nutrition needs at this time. Diagnosis: Dysphagia, likely related to current cognitive status. Recommendations: Diet: Puree, Thin liquids PO medications: crushed in bite of puree with approval from pharmacist Aspiration precautions: One to one direct supervision during all PO intake to ensure feeding strategies are followed Feed only when alert Reduce environmental distractions Upright position during meals and for at least 30 mins following Small sips and bites while eating Excellent oral care Consider maintaining alternative nutrition until patient more alert - I do not anticipate she will be able to meet her needed calorie intake based on her overall level of fatigue. Pt will benefit from continued INSPECTING AND TESTING LEAD HAND services while hospitalized Speech Therapy Goals: (To be met by discharge) Pt will tolerate least restrictive diet without evidence of dysphagia / aspiration. Pt / caregiver will be independent with aspiration precautions, diet modifications, and safe swallowing strategies. Plan: Therapy Frequency: 2-4 times/wk Pt unable to give informed agreement with plan at this time due to decreased MS. Total Evaluation Minutes, Speech Language Pathology: 15 Thank you for this consult with this patient. Please feel free to page me with any questions or concerns. Grace Draper, [facility]-INSPECTING AND TESTING LEAD HAND Inpatient Rehabilitation Medicine Pager [phone] * Plan of Care - Trish Rivera RN - 04/11/2020 3:37 AM EDT Problem: Patient Care Overview Goal: Plan of Care Review Outcome: Ongoing (Interventions Implemented as Appropriate) 04/11/20 0316 Coping/Psychosocial Plan Of Care Reviewed With patient Plan of Care Review Progress progress towards functional goals is fair OUTCOME EVALUATION NOTE: OUTCOME SUMMARY: Pt restless at start of shift. Opens eyes to voice, A&Ox0. Unable to follow commands. No tracking observed. RLE & RUE rigid and contracted, resolved spontaneously. All extremities withdraw from peripheral stimuli. Said two words, Hi and No. Lights and noise off at HS, minimized awakenings. Pt slept most of night. Tube feeds remain at goal, no BM this shift. Bowel medications administered. U/O picked up slightly with continuous IVF. PLAN MOVING FORWARD: Promote daytime wakefulness and night time sleep. Neuro checks Q4 hours. INSPECTING AND TESTING LEAD HAND when able to follow commands. INDIVIDUALIZED FALL PREVENTION INTERVENTIONS: Patient-specific fall risk factors per assessment: [current deficits]: Delerium, generalized weakness, lines, drains. Assistance [level of assistance required for transfers and ambulation]: Total assist. Supervision [direct monitoring required during toileting and ADLs]: Hourly rounding, bed alarm, frequent reorientation. Surveillance [continuous indirect monitoring]: Telemetry and Pulse Oximetry. Patient-specific fall prevention interventions for sensory deficits provided, if applicable: [X] Yes CPG GOAL OUTCOME EVALUATION: * Plan of Care - Abad Mcwilliams RN - 04/10/2020 5:54 PM EDT OUTCOME EVALUATION NOTE: OUTCOME SUMMARY: Pt. noted to be in blatant hypoactive delirium throughout entirety of the shift. Making slow progress, attempting to speak this evening rather than being exclusively nonverbal. Speech currently incomprehensible. OOB to chair with PT and ceiling lift, tish vest utilized for safety. Lights on, musicprovided, glasses on, and frequent stimulation provided. Low UOP throughout the shift. Team notified, maintenance fluids hung. PLAN MOVING FORWARD: Promote stimulation throughout the day and sleep at night. INDIVIDUALIZED FALL PREVENTION INTERVENTIONS: Patient-specific fall risk factors per assessment: [current deficits]: DHT, IV lines, suh catheter, telemetry, pulse oximetry. Assistance [level of assistance required for transfers and ambulation]: Mechanical lift OOB. Supervision [direct monitoring required during toileting and ADLs]: Dependent. Surveillance [continuous indirect monitoring]: Telemetry, pulse oximetry. * Plan of Care - Maude Blackman, PT - 04/10/2020 3:16 PM EDT Physical Therapy Evaluation Patient profile: Toyin Lion is a 64 y.o. female with hx of GERD, HLD, HTN, DM II, Hx of TIA, obesity, SIMMONS cirrhosis, who presents in transfer from [facility] to [facility] on 04/05 for severe agitationof unclear etiology. Patient with the following active problems: Past Medical History: Diagnosis Date ??? CKD (chronic kidney disease) 04/05/2020 ??? Delirium 04/05/2020 ??? Diabetes mellitus type 2, uncomplicated 05/14/2014 ??? Hx-TIA (transient ischemic attack) 05/14/2014 ??? Hyperlipidemia 05/28/2014 Off statin due to foot pain side effect ??? Hypertension 05/28/2014 ??? Restless legs syndrome (RLS) 04/05/2020 No past surgical history on file. Social History: Unable to obtain from patient. 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 She lives in a small house with 4 LEILANI; bed and bath are both on the main level. Per chart, granddaughteris staying in the upstairs bedroom. Precautions/Special Considerations: Cognitive impairments/impaired safety awareness, NGT, Suh, act as toney Mobility and Positioning Recommendations: ?? Pt is currently dependent for transfers ?? Please encourage up to chair as tolerated to facilitate day-night cycle ?? Please use photos and other aids for frequent orientation Subjective: Currently nonverbal Objective: Pt seen for PT evaluation today. Pain: Vital Signs: HR: 104 bpm SpO2: 96% on room air BP: 117/71 mmHg supine, 118/103 mmHg in recliner Mental Status: confused and drowsy, did not follow commands. Intermittent brief tracking of speakerwith her eyes towards end of session, turning head to speaker's voice. Vision: unable to formally assess; has glasses at bedside Musculoskeletal: ROM: BLE WFL Strength: appears symmetrical, moving all 4 extremities against gravity in supine Sensation: unable to formally assess; withdraws to pain Bed Mobility: Supine to Sit: dependent Sit to Supine: dependent Max A to sit EOB Transfers: dependent Gait: Currently nonambulatory Stairs: n/a Balance: Sitting Static: poor Sitting Dynamic: unable Standing Static: unable Standing Dynamic / Gait: unable Interventions: Patient was brought to the EOB to facilitate upright positron and arousal. Patient was then lifted to the recliner, and orientation was facilitated by showing patient photographs of her family and pets. Patient appeared to briefly track, but had no other observable response. She was left in the recliner position with tish and chair alarm on for safety. Education: patient has been educated on Bed mobility, Transfers, Safety , Precautions/protocol, Role of therapy, Balance and Discharge planning and will need frequent reinforcement. understanding. Patient status, treatment, and mobility recommendations discussed with nursing. Assessment: Toyin Lion was seen today for physical therapy evaluation and presents with signs and symptoms consistent with hypoactive delirium following a period of preceding agitation/restlessness. Patient was alert, but did not follow commands. She was observed to move all four extremities spontaneously. Patient was brought to the EOB to facilitate upright time and arousal (required max A to maintain) and subsequently lifted to the recliner, where visual orientation aids (family photos) were presented (patient did not appear to respond to the stimuli, but briefly tracked therapist towards end of session, turning head to voice. Patient was left in the recliner with tish and alarm on for safety; PT will continue to work with her to facilitate functional mobility as her mental status improves. The pt would benefit from skilled therapy services while in the hospital to maximize functional abilities. Discharge Recommendations: Based on the current findings, Anticipated Discharge Disposition: inpatient rehabilitation facilitywhen medically ready for hospital discharge. Consult Recommendations: No other consults recommended at this time. Equipment needs: TBD Goals: To be achieved by 04/24/2020: 1. Pt. to demonstrate knowledge of safety limitations and precautions and will appropriately request assistance for functional activities and to mobilize. 2. Pt will tolerate progression towards upright with stable vital signs. 3. Pt to transition between supine and EOB with mod A 4. Pt to maintain EOB sitting with min A x 5 min to prepare for transfers 5. Pt to SPT between bed and recliner with mod A Plan: Therapy Frequency: 2-4 times/wk for therapy including balance training, bed mobility training, gait training, neuromuscular re-education, patient/family education, postural re-education, range of motion, stair training, strengthening and transfer training. Patient/family understand and agree with plan as stated above. 2017 PT Evaluation Code Rationale: ?? Diagnosis & Pertinent Co-Morbidities, personal factors, and present illness affecting Plan of Care: (see above); Additional personal factors or co- morbidities that impact plan: ?? Total # of Factors: 0 1-2 3+ x ?? Examination of body system impairments, functional limitations and behaviors, and/or participation restrictions. Addressing 1-2 elements Addressing 3 + elements Addressing 4 + elements x ?? Clinical presentation: See assessment above. Stable/Uncomplicated Evolving/Fluctuating Symptoms Unstable/Unpredictable x ?? Clinical decision making of high complexity based on pt's functional performance as outlined in this evaluation. Time IN / OUT: 3417-5242 Total Evaluation Minutes, Physical Therapy: 35 Maude Blackman, DPT, NCS Pager: [phone] Physical Therapy Inpatient Rehabilitation Department * Plan of Care - Ilana Rao, OT - 04/10/2020 11:27 AM EDT Occupational Therapy Evaluation Patient profile: Toyin Lion is a 64 y.o. female admitted on 04/05/2020 with PMHx significant SIMMONS cirrhosis, DM was transferred from [facility] w/ acute encephalopathy. She is having ongoing significant delirium and agitation.. Initial presentation was felt to be due to Lyrica withdrawal. She was treated w/ multiple benzos, causing a paradoxical response. W/u neg there except for an E coli UTI which is being treated w/ ceftriaxone. Holding all psychotropic meds. On clonidine due to recent Precedex use and would reduce over next few days. She is more calm today and slept w/ melatonin. Past Medical History: Diagnosis Date ??? CKD (chronic kidney disease) 04/05/2020 ??? Delirium 04/05/2020 ??? Diabetes mellitus type 2, uncomplicated 05/14/2014 ??? Hx-TIA (transient ischemic attack) 05/14/2014 ??? Hyperlipidemia 05/28/2014 Off statin due to foot pain side effect ??? Hypertension 05/28/2014 ??? Restless legs syndrome (RLS) 04/05/2020 No past surgical history on file. Social History: Patient was unable to provide details regarding social history or prior level of functioning secondary to delirium. Per chart Pt lives in a small house with 4 LEIL[address]. Granddaughter is staying in the upstairs bedroom. Home Setup: Bed and bath are on the main level. 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 Precautions/Special Considerations: fall risk, activity as tolerated, aspiration precautions Subjective: Pt made eye contact, but was not responding to questions with verbal or non-verbal means. Objective: Seen today for OT evaluation. Cognitive Status/Behavior: ?? Behavior / Mood: cooperative, confused and lethargic ?? Alert and oriented to: disoriented x4 ?? Follows commands: <25% of the time ?? Attention: difficulty attending to task/directions and requires cues to redirect ?? Safety awareness: severe impairment Vision & Perception: ?? difficult to assess Communication: non-verbal Range of motion, strength, coordination: Hand dominance: unknown Bilateral UE AROM and strength were significantly limited - not following commands for accurate assessment LE limitations: generalized weakness Sensation: unable to assess Activities of Daily Living: Self-feeding: Dependent Grooming: Dependent Dressing: Dependent Bathing: Dependent Toileting: Transfer: Dependent Hygiene: Dependent Functional Mobility: Supine to sit: Dependent Sit to stand: Dependent Ambulation: Dependent Stand to sit: Dependent Sit to supine: Dependent Balance: Sitting balance: Poor Standing balance: Not assessed Vitals: RA At Rest SpO2 96% Heart Rate 104 Blood Pressure 117/71 Pain: difficult to assess Skin: gluteal wounds; at high risk for skin breakdown Education: patient have been educated on Role of occupational therapy/rehabilitation, Transfers, ADL, Positioning, Safety, Precautions/Protocol, Balance, Recommendations and Discharge planning and needs reinforcement. for understanding. Patient status, treatment, and mobility recommendations discussed with nursing. Assessment: Pt has been seen for occupational therapy evaluation. Toyin Lion presents with thefollowing performance skill deficits and client factors: decreased activity tolerance, decreased flexibility/ROM, decreased strength, decreased sitting/standing balance, cognitive deficits, deconditioning and compromised mobility status. These performance deficits have led to activity limitations and participation restrictions in the following areas of occupation: dressing, bathing, grooming, toileting, self-feeding, transfers/mobility and community mobility. Pt presented as lethargic, confused, and cooperative. She required max assist of 2 for supine to sit transfer and mod to max assist for static sitting balance at EOB. Pt was not following directions or able to participate in functionalactivities despite max cues. She was transferred to the recliner via mechanical lift to encourage upright positioning. Anticipate Pt will require an inpatient rehab level of care when medically readyfor discharge. Pt would benefit from further inpatient OT interventions to address performance deficits and maximize participation and independence with occupations of daily living. Equipment needs at discharge: TBD Anticipated Discharge Disposition: inpatient rehabilitation facility Other Recommendations: ?? Utilize upright chair position using bed features or transfer to recliner chair as appropriate with mechanical lift ?? Encourage participation in ADL's by providing verbal cues and physical assist as Pt is requiringdependent care at this time Other Recommendations: No other consults recommended at this time Goals: To be achieved by April 24, 2020. Pt will effectively utilize compensatory strategies to achieve orientation x4 with min assist. Pt will maintain attention during simple tasks for >5 minutes with <3 VCs. Pt will demonstrate fair seated balance at EOB for increased participation in ADLs. Pt will complete a grooming task with supervision assist and min cues. Pt will complete functional transfers with min assist for increased independence in ADLs. Pt will participate in UE strength/ROM/coordination exercises as appropriate for improved participation in daily tasks. Plan: OT: Therapy Frequency: 2-4 times/wk Planned OT interventions: Role of occupational therapy/rehabilitation, Transfers, Assistive device/technique, Adaptive equipment training, ADL, Exercise, Breathing exercises, Positioning, Safety, Precautions/Protocol, Functional Mobility, Activity pacing/Energy conservation, Home Management, Balance, Recommendations, Family training and Discharge planning. Total Evaluation Minutes, Occupational Therapy: 39 2016 OT Evaluation Code Rationale: ?? Diagnosis & Pertinent Co-Morbidities affecting Plan of Care: see PMHx ?? Occupational Profile & Client History: Brief Expanded Extensive X ?? Assessment of Occupational Performance: 1-3 performance deficits 3-5 performance deficits 5 + performance deficits X ?? Clinical Decision Making: Low Moderate High X Clinical decision making of high complexity using standardized patient assessment instrument and measurable assessment of functional outcome. Pager: [phone] Ilana Rao OT 04/11/2020 Occupational Therapy Rehabilitation Department * Plan of Care - Amrita Wu RN - 04/10/2020 4:43 AM EDT Problem: Patient Care Overview Goal: Plan of Care Review Outcome: Ongoing (Interventions Implemented as Appropriate) 04/08/20 0740 04/09/201999 Coping/Psychosocial Plan Of Care Reviewed With -- patient;family;daughter Plan of Care Review Progress no change -- OUTCOME EVALUATION NOTE: OUTCOME SUMMARY: PERRLA, moves all extremities, opens eyes to voice, tracks, does not follow commands. RA, tolerating well. ST with HR 110s, MAP >65, afebrile. TF continue @ goal. No BM over night. Low UOP- team aware. PLAN MOVING FORWARD: Continue TF. Q4H Neuro checks. Continue to monitor closely. INDIVIDUALIZED FALL PREVENTION INTERVENTIONS: Patient-specific fall risk factors per assessment: [current deficits]: IV lines/drains, generalizedweakness. Assistance [level of assistance required for transfers and ambulation]: 2 person assist. Supervision [direct monitoring required during toileting and ADLs]: Alarms set/audible, room near unit station, routine safety checks, call cunningham within reach, bed in lowest position. Surveillance [continuous indirect monitoring]: ICU [facility]. Patient-specific fall prevention interventions for sensory deficits provided, if applicable: [X] Yes CPG GOAL OUTCOME EVALUATION: Goal: Individualization & Mutuality Outcome: Ongoing (Interventions Implemented as Appropriate) 04/05/20185104/05/201941 Individualization Patient Specific Preferences MELODIE at this time -- Patient Specific Goals MELODIE at this time -- Mutuality/Individual Preferences What Anxieties, Fears or Concerns Do You Have About Your Health or Care? -- melodie What Questions Do You Have About Your Health or Care? -- melodie What Information Would Help Us Give You More Personalized Care? -- melodie Goal: Fall Prevention-Safe Patient Handling Outcome: Ongoing (Interventions Implemented as Appropriate) 04/08/20 1800 04/09/20199904/10/20399 [place] Fall Risk History of Falling -- 25 -- Secondary Diagnosis -- 15 -- Ambulatory Aids -- 0 -- Intravenous Therapy/Heparin/Saline Lock -- 20 -- Gait/Transferring -- 0 -- Mental Status -- 15 -- Score -- 75 -- OTHER Barragan Fall Risk -- High -- Restraint Interventions Safety Promotion/Fall Prevention -- -- safety round/check completed;fall prevention program maintained Positioning Body Position foot of bed elevated -- -- Activity Activity Type -- -- activity adjusted per tolerance Activity Assistance Provided -- -- assistance, 2 people Goal: Infection Control Outcome: Ongoing (Interventions Implemented as Appropriate) 04/09/20199904/10/20 040 Safety Interventions Isolation Precautions -- standard precautions maintained Infection Prevention environmental surveillance performed;equipment surfaces disinfected;single patient room provided;rest/sleep promoted -- Coping Strategies Supportive Measures relaxation techniques promoted;positive reinforcement provided -- Problem: Skin Integrity Impairment, Risk/Actual (Adult) Goal: Identify Related Risk Factors and Signs and Symptoms Related risk factors and signs and symptoms are identified upon initiation of Human Response Clinical Practice Guideline (CPG) Outcome: Ongoing (Interventions Implemented as Appropriate) 04/05/201851 Skin Integrity Impairment, Risk/Actual Skin Integrity Impairment, Risk/Actual: Related Risk Factors cognitive impairment;fluid/nutrition status;sensory impairment Signs and Symptoms (Skin Integrity Impairment) other (see comments) (moisture fissure sacrum/blister buttock) Goal: Skin Integrity/Wound Healing Patient will demonstrate the desired outcomes by discharge/transition of care. Outcome: Ongoing (Interventions Implemented as Appropriate) 04/05/20 1852 Skin Integrity Impairment, Risk/Actual (Adult) Skin Integrity/Wound Healing making progress toward outcome Problem: Sensory/Perceptual Alteration (Adult) Goal: Identify Related Risk Factors and Signs and Symptoms Related risk factors and signs and symptoms are identified upon initiation of Human Response Clinical Practice Guideline (CPG) Outcome: Ongoing (Interventions Implemented as Appropriate) 04/08/20 0738 Sensory/Perceptual Alteration Sensory/Perceptual Alteration: Related Risk Factors communication barrier;immobility;neurologic dysfunction;sensory impairment;sleep disturbance Signs and Symptoms (Sensory/Perceptual Alteration) communication change;disorientation (time, place, person, situation);restlessness Goal: Functional Ability/Safety Patient will demonstrate the desired outcomes by discharge/transition of care. Outcome: Ongoing (Interventions Implemented as Appropriate) 04/08/20 0739 Sensory/Perceptual Alteration (Adult) Functional Ability/Safety unable to achieve outcome Goal: Balanced Response to Sensory Input Patient will demonstrate the desired outcomes by discharge/transition of care. Outcome: Ongoing (Interventions Implemented as Appropriate) 04/08/20 0739 Sensory/Perceptual Alteration (Adult) Balanced Response to Sensory Input unable to achieve outcome * Plan of Care - Pricila Sanchez RN - 04/09/2020 5:29 PM EDT Problem: Patient Care Overview Goal: Individualization & Mutuality Outcome: Ongoing (Interventions Implemented as Appropriate) OUTCOME EVALUATION NOTE: ?? OUTCOME SUMMARY: Resumed care at 12:00. HR tachycardic <110. BP stable. Afebrile. ABX provided. Continued to produce adequate amounts of urine. Spontaneously desaturated at 1500. Venti mask applied for half an hour, transitioned to 4L NC. VBG drawn-no acute concern for respiratory compromise at this time. Increased lethargy this afternoon. Still able to arouse to voice. Disoriented x4. Bilateral mitt restraints and tish continued this morning. Discontinued at 1600. ?? PLAN MOVING FORWARD: Monitor agitation, managed tachycardia ?? INDIVIDUALIZED FALL PREVENTION INTERVENTIONS: ?? Patient-specific fall risk factors per assessment: [current deficits]: Confusion and agitation ?? Assistance [level of assistance required for transfers and ambulation]: 1-2 assist ?? Supervision [direct monitoring required during toileting and ADLs]: Hands on ?? Surveillance [continuous indirect monitoring]: Room near RN station, garcia monitor ?? Patient-specific fall prevention interventions for sensory deficits provided, if applicable: [X] Yes ? CPG GOAL OUTCOME EVALUATION: * Plan of Care - Amrita Wu RN - 04/09/2020 5:07 AM EDT Problem: Patient Care Overview Goal: Plan of Care Review Outcome: Ongoing (Interventions Implemented as Appropriate) 04/08/20 0740 04/08/201999 Coping/Psychosocial Plan Of Care Reviewed With -- patient;family Plan of Care Review Progress no change -- OUTCOME EVALUATION NOTE: OUTCOME SUMMARY: PERRLA, AAOX 0, limited verbal communication, moves all extremities, restless all night, restrained. RA, tolerating well. ST with HR 110s-130s, MAP >65, afebrile. TF continue @ goal, tolerating well. No BM over night. Good UOP. Mag and K+ replaced over night. PLAN MOVING FORWARD: Neuro checks. Continue to monitor closely. INDIVIDUALIZED FALL PREVENTION INTERVENTIONS: Patient-specific fall risk factors per assessment: [current deficits]: IV lines/drains, generalizedweakness. Assistance [level of assistance required for transfers and ambulation]: 2 person assist. Supervision [direct monitoring required during toileting and ADLs]: Alarms set/audible, room near unit station, routine safety checks, call cunningham within reach, bed in lowest position. Surveillance [continuous indirect monitoring]: ICU Garcia. Patient-specific fall prevention interventions for sensory deficits provided, if applicable: [X] Yes CPG GOAL OUTCOME EVALUATION: Goal: Individualization & Mutuality Outcome: Ongoing (Interventions Implemented as Appropriate) 04/05/20185104/05/201941 Individualization Patient Specific Preferences MELODIE at this time -- Patient Specific Goals MELODIE at this time -- Mutuality/Individual Preferences What Anxieties, Fears or Concerns Do You Have About Your Health or Care? -- melodie What Questions Do You Have About Your Health or Care? -- melodie What Information Would Help Us Give You More Personalized Care? -- melodie Goal: Fall Prevention-Safe Patient Handling Outcome: Ongoing (Interventions Implemented as Appropriate) 04/08/20179904/08/20199904/09/20399 Barragan Fall Risk History of Falling -- 25 -- Secondary Diagnosis -- 15 -- Ambulatory Aids -- 0 -- Intravenous Therapy/Heparin/Saline Lock -- 20 -- Gait/Transferring -- 0 -- Mental Status -- 15 -- Score -- 75 -- OTHER Barragan Fall Risk -- High -- Restraint Interventions Safety Promotion/Fall Prevention -- -- safety round/check completed;fall prevention program maintained Positioning Body Position foot of bed elevated -- -- Activity Activity Type -- -- activity adjusted per tolerance Activity Assistance Provided -- -- assistance, 2 people Goal: Infection Control Outcome: Ongoing (Interventions Implemented as Appropriate) 04/08/20199904/09/20399 Safety Interventions Isolation Precautions -- standard precautions maintained Infection Prevention single patient room provided -- Coping Strategies Supportive Measures relaxation techniques promoted;self-care encouraged;decision-making supported;positive reinforcement provided -- Problem: Skin Integrity Impairment, Risk/Actual (Adult) Goal: Identify Related Risk Factors and Signs and Symptoms Related risk factors and signs and symptoms are identified upon initiation of Human Response Clinical Practice Guideline (CPG) Outcome: Ongoing (Interventions Implemented as Appropriate) 04/05/20 185 Skin Integrity Impairment, Risk/Actual Skin Integrity Impairment, Risk/Actual: Related Risk Factors cognitive impairment;fluid/nutrition status;sensory impairment Signs and Symptoms (Skin Integrity Impairment) other (see comments) (moisture fissure sacrum/blister buttock) Goal: Skin Integrity/Wound Healing Patient will demonstrate the desired outcomes by discharge/transition of care. Outcome: Ongoing (Interventions Implemented as Appropriate) 04/05/20 185 Skin Integrity Impairment, Risk/Actual (Adult) Skin Integrity/Wound Healing making progress toward outcome Problem: Sensory/Perceptual Alteration (Adult) Goal: Identify Related Risk Factors and Signs and Symptoms Related risk factors and signs and symptoms are identified upon initiation of Human Response Clinical Practice Guideline (CPG) Outcome: Ongoing (Interventions Implemented as Appropriate) 04/08/20 0738 Sensory/Perceptual Alteration Sensory/Perceptual Alteration: Related Risk Factors communication barrier;immobility;neurologic dysfunction;sensory impairment;sleep disturbance Signs and Symptoms (Sensory/Perceptual Alteration) communication change;disorientation (time, place, person, situation);restlessness Goal: Functional Ability/Safety Patient will demonstrate the desired outcomes by discharge/transition of care. Outcome: Ongoing (Interventions Implemented as Appropriate) 04/08/20 0739 Sensory/Perceptual Alteration (Adult) Functional Ability/Safety unable to achieve outcome Goal: Balanced Response to Sensory Input Patient will demonstrate the desired outcomes by discharge/transition of care. Outcome: Ongoing (Interventions Implemented as Appropriate) 04/08/20 0739 Sensory/Perceptual Alteration (Adult) Balanced Response to Sensory Input unable to achieve outcome * Plan of Care - Pricila Sanchez RN - 04/08/2020 5:21 PM EDT Problem: Patient Care Overview Goal: Plan of Care Review Outcome: Ongoing (Interventions Implemented as Appropriate) 04/08/20 0740 Coping/Psychosocial Plan Of Care Reviewed With patient;daughter Plan of Care Review Progress no change OUTCOME EVALUATION NOTE: OUTCOME SUMMARY: Patient remained confused and agitatied throughout the shift. HR tachycardic- 130's. Dex stopped [id number] this morning. EKG completed this morning prior to Haldol injection, QTC 436. Haldol provided 1x. Repeat EKG- QTC >500. Afebrile. ABX provided. Incontinent of urine several times. Clonidine provided 1x, working well for sedation. Bilateral mitt restraints and tish continued. PLAN MOVING FORWARD: Monitor agitation, managed tachycardia INDIVIDUALIZED FALL PREVENTION INTERVENTIONS: Patient-specific fall risk factors per assessment: [current deficits]: Confusion and agitation Assistance [level of assistance required for transfers and ambulation]: 1-2 assist Supervision [direct monitoring required during toileting and ADLs]: Hands on Surveillance [continuous indirect monitoring]: Room near RN station, radha monitor Patient-specific fall prevention interventions for sensory deficits provided, if applicable: [X] Yes CPG GOAL OUTCOME EVALUATION: * Plan of Care - Maude Blackman, PT - 04/08/2020 11:47 AM EDT 04/08/20 1130 Rehab Evaluation Document Type contact Total Evaluation Minutes, Physical Therapy 0 Evaluation Not Performed other (see comments) Evaluation Not Performed Comment PT referral received, chart reviewed. Per RN, patient not yet appropriate for initiation of PT; PT to f/u tomorrow. Thank you for the consult! Maude Blackman DPT, NCS Pager #[phone] * Consult Note - Marianna Bryan RN - 04/08/2020 11:34 AM EDT Certified Wound Care Nurse Note Situation: Asked to see Toyin Lion by nursing for open blister to left buttock, present on admission; moisture fissure in gluteal fold Background: eD-H notes reviewed for history, admitting diagnosis and active problem list. Wound Assessment and Care Provided: Patient greeted and reason for visit stated, Patient agreed to assessment and treatment. RN at bedside for assessment. Patient turned to the right side. Sacral mepilex peeled back revealing a linear area of partial thickness tissue loss to the intergluteal cleft with pink blanchable wound bed; cleansed with normal saline and mepilex border applied. Left buttock with circular pink blanchable area 0.2x0.2. Right buttock mepilex peeled back revealing an area of partial thickness tissue loss and pink moist wound bed which blanches on palpation; cleansed with saf clens wound cleanser and mepilex border applied. Patient moving about in bed independently throughout assessment. RN reports the patient had been turning from supine to her sides throughout the morning. Babatunde Score: 13 Current bed: Specialty Bed/Overlay: bed, air fluidized/low air loss combination Assessment: Moisture fissure to sacrum. Right buttock area with questionable etiology, will continue to monitor. Wound Care Recommendations: Mepilex Border Sacrum dressing to sacrum-Assess beneath the dressing daily and reapply, sealing edges with skin prep. Change every 3 days and PRN: 1. Cleanse skin with dermal wound cleanser. 2. Apply Mepilex Border Sacrum dressing making sure to apply directly against the skin. 3. Seal edges with skin prep. If the Mepilex Border Sacrum needs to be changed more than once a day due to soiling then discontinue and use shield barrier wipes and apply zinc barrier cream to denuded skin Moisture: Follow a bowel and bladder schedule for incontinent patients and document. Cleanse skin gently after each incontinence episode with Shield Barrier wipes. Apply Z-Guard Skin Protectant Paste to denuded perineal skin bid and prn. Consider use of a fecal incontinence containment device. Assess skin for fungal infections, notify provider. Use disposable air pads (white chux) to maintain dry skin and prevent fungal infections. Avoid adult diapers except when patient is out of bed to ambulate or in a chair. Place InterDry Ag in a single layer into skin folds, making sure that 2 inches of the fabric extends out beyond the skin fold to the air. Restraints per [facility] policy. Follow hospital standard for pressure injury prevention and skin care. Refer to adult/pediatric pressure injury prevention job aid in the clinical policy library. Wound care will follow weekly. Discussed plan with: RN: Arnold Please contact Marianna Bryan RN on pager [phone] or the wound care team at [phone] or pager [phone] with skin and wound care concerns or questions. * Initial Assessments - Linda Becerril RN - 04/08/2020 10:17 AM EDT Office of Care Management Initial Assessment Linda Becerril RN reviewed record and discussed patient with Care Team. Source of Information: pt is confused and unable to answer any questions Cm called daughter Linda [phone] who then conferenced in her sister Sadie. IA was completed Introduced self/reviewed role; services accepted. Reason for Hospitalization: Reason for Admission as Stated by Patient: melodie- pt not answering questions at this time Past Medical History: Diagnosis Date ??? CKD (chronic kidney disease) 04/05/2020 ??? Delirium 04/05/2020 ??? Diabetes mellitus type 2, uncomplicated 05/14/2014 ??? Hx-TIA (transient ischemic attack) 05/14/2014 ??? Hyperlipidemia 05/28/2014 Off statin due to foot pain side effect ??? Hypertension 05/28/2014 ??? Restless legs syndrome (RLS) 04/05/2020 Hospitalizations Within the Past 30 Days: er visits for not feeling well Anticipated Length Of Stay (If known): Expected Length of Hospitalization: unknown Current Decision-Making Capacity: pt is confused and unable to make decisions Advance Care Planning: Patient does not have advanced directives. Education provided and surrogacy reviewed with daughters Linda and Sadie. They are going to look and see if pt has any paperwork [facility] but they do. They understand that they are the surrogate decision makers. If AD's have not been completed Tl Mckeon/Sadie would be surrogate decision maker per [place] surrogate decision making law. Any patient receiving care at [facility] must abide by [place] law. The hierarchy for surrogate decision making [...] (i) The agent with financial power of assistant city attorney or a conservator appointed in accordance with RSA 464-A. (j) The guardian of the patient???s estate. 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 Home Environment: lives in small house w/4 steps to enter her bed/bath all on the first floor. She has a granddaughter that stays in the upstairs bedroom Social & Family Supports/Community Resources: family and friends support Behavioral Health History: daughters deny any history Substance Use/Abuse: per daughters pt used to drink when they where younger but stopped about 10 yrs ago. Pt may have an occasional glass of wine more recently. She was never a smoker. She has a cardfor medical marijuana and smokes daily for last few yrs. Other Pertinent/Service Specific Information: Health/Prescription Coverage: Primary Insurance: MEDICARE Secondary Insurance: [id number] [facility] Prescription Coverage: yes Preferred [facility]acy[facility] Other: Primary Care Provider: Cass Abebe, PROTECTIVE SIGNAL REPAIRER [phone] Patient/Caregiver Goals of Treatment: daughters would like pt to get better and back home Potential Needs for Transition of Care: Rehab/SNF: not at this time Home Health: tbd, daughters are in agreement if pt needs hh to order it, will wait to see if pt agrees DME: none needed at this time Dialysis: not at this time Community Resources: no Transportation: pt drives as does her daughters Other: Anticipated Barriers to Discharge/Special Considerations: none at this time Assessment: 64 y/o female that lives alone although her grandaughter stays in upstairs bedroom. Pt has been very independent and driving. 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 Per her daughters she stopped her lyrica cold turkey about a week ago. Was taking it for her feet but per her PCP her kidney labs where getting worse. Pt also smokes medical marijuana daily. Pt is very confused and agitated at present. Plan: monitor pt progress and make needed referrals Notify providers of medical marijuana A member of the Care Management team will continue to monitor progress, follow for continuity of care and assist with transition of care planning. Linda Becerril RN Pager: [phone] * Plan of Care - Nhan Greenwood RN - 04/08/2020 7:47 AM EDT Problem: Patient Care Overview Goal: Plan of Care Review Outcome: Ongoing (Interventions Implemented as Appropriate) 04/08/20 0740 Coping/Psychosocial Plan Of Care Reviewed With patient;daughter Plan of Care Review Progress no change OUTCOME EVALUATION NOTE: OUTCOME SUMMARY: Pt remained delirious/disoriented x4 throughout shift. At 2130 RASS -4, precedex turned off. Pt then RASS +3 at 2330 yelling, crying, and extremely restless in bed, precedex restarted. Pt very slow to calm down requiring prn haloperidol x1 w/ mild effect. Pt appears to become more agitated around when she needs to urinate. Pt will say I need to pee in a garbled voice if asked however she is unable to go when placed on bed iqbal. Pt then incontinent after removing bed iqbal x2. Continued to titrate precedex to goal of RASS -1 to 0 however pt unable to meet this goal. Attempting to reorient frequently and follow delirium prevention strategies. PLAN MOVING FORWARD: Delirium prevention strategies Reorient frequently Titrate down on sedation Maintain safety Monitor for s/sx neurological changes INDIVIDUALIZED FALL PREVENTION INTERVENTIONS: Patient-specific fall risk factors per assessment: [current deficits]: Confusion, generalized weakness, neuropathy Assistance [level of assistance required for transfers and ambulation]: Assist x2 w/ bed mobility Supervision [direct monitoring required during toileting and ADLs]: Hands on Surveillance [continuous indirect monitoring]: Purposeful rounding, bed alarm Patient-specific fall prevention interventions for sensory deficits provided, if applicable: [X] Yes CPG GOAL OUTCOME EVALUATION: * Plan of Care - Ernie Solano RN - 04/07/2020 5:14 PM EDT Problem: Patient Care Overview Goal: Plan of Care Review Outcome: Ongoing (Interventions Implemented as Appropriate) 04/07/20 1657 Coping/Psychosocial Plan Of Care Reviewed With patient Plan of Care Review Progress no change OUTCOME EVALUATION NOTE: OUTCOME SUMMARY: Patient condition remains the same, restless intermittently,not following commands, normo to hypertensive, afebrile, given haldol twice with good effect, no bowel movement today PLAN MOVING FORWARD: Continue till she is mentally clear, monitor and manage electrolytes INDIVIDUALIZED FALL PREVENTION INTERVENTIONS: Patient-specific fall risk factors per assessment: [current deficits]: delirium Assistance [level of assistance required for transfers and ambulation]: 2 assists Supervision [direct monitoring required during toileting and ADLs]: devices Surveillance [continuous indirect monitoring]: lawson icu Patient-specific fall prevention interventions for sensory deficits provided, if applicable: [X] Yes CPG GOAL OUTCOME EVALUATION: * Plan of Care - Gwen Solitario RN - 04/07/2020 4:32 AM EDT Problem: Patient Care Overview Goal: Plan of Care Review Outcome: Ongoing (Interventions Implemented as Appropriate) 04/06/207 04/06/201999 Coping/Psychosocial Plan Of Care Reviewed With -- patient Plan of Care Review Progress improving -- OUTCOME EVALUATION NOTE: OUTCOME SUMMARY: Pt continues to have labile mental status overnight- yelling out often and restless in bed but making some coherent, yet slurred statements I have to pee help me and my legs hurt! otherwise snoring and asleep. Pupils equal, round reactive and moving all extremities but does not follow commands. Maintained on dex drip overnight as per DEC. Received 1 dose of haldol overnight with good effect. HR 70-80's with 1st degree block. BP up to 170's, rec'd one dose of PRN labetalol. Afebrile overnight. Maintained on RA. Incontinent of urine, incontinence care provided. Bilateral upper wrist restraints removed and mitts applied. Pt's family updated via phone. PLAN MOVING FORWARD: Continue to monitor for clearing of mental status. Wean dex as tolerated. Address leg pain? INDIVIDUALIZED FALL PREVENTION INTERVENTIONS: Patient-specific fall risk factors per assessment: [current deficits]: LDA's Assistance [level of assistance required for transfers and ambulation]: Assist x2 Supervision [direct monitoring required during toileting and ADLs]: Direct hands on Surveillance [continuous indirect monitoring]: radha estrella. Purposeful hourly rounding. Patient-specific fall prevention interventions for sensory deficits provided, if applicable: [X] Yes CPG GOAL OUTCOME EVALUATION: * Plan of Care - Ernie Solano RN - 04/06/2020 5:44 PM EDT Problem: Patient Care Overview Goal: Plan of Care Review Outcome: Ongoing (Interventions Implemented as Appropriate) 04/06/201726 Coping/Psychosocial Plan Of Care Reviewed With patient Plan of Care Review Progress improving OUTCOME EVALUATION NOTE: OUTCOME SUMMARY: Patient was restless and agitated earlier, in the morning, was trying to open eyes when asked but no other commands , dopoff placed and tube feeds (Nepro) was started at 10 with a goal of 42ml/hr, hypertensive for the most part, afebrile, given haldol 5mg once prior to dopoff with positive effect, slept , with intermittent restlessness. PLAN MOVING FORWARD: Manage agitation, hemodynamic monitoring, back and pressure care INDIVIDUALIZED FALL PREVENTION INTERVENTIONS: Patient-specific fall risk factors per assessment: [current deficits]: confusion, agitation, restlessness Assistance [level of assistance required for transfers and ambulation]: 2 assists Supervision [direct monitoring required during toileting and ADLs]: devices Surveillance [continuous indirect monitoring]: lawson icu Patient-specific fall prevention interventions for sensory deficits provided, if applicable: [X] Yes CPG GOAL OUTCOME EVALUATION: * Plan of Care - Gwen Solitario RN - 04/06/2020 5:02 AM EDT Problem: Patient Care Overview Goal: Plan of Care Review Outcome: Ongoing (Interventions Implemented as Appropriate) 04/05/20 1852 Coping/Psychosocial Plan Of Care Reviewed With patient Plan of Care Review Progress no change OUTCOME EVALUATION NOTE: OUTCOME SUMMARY: Pt remains intermittently agitated (flailing arms and restless in bed, yelling out incomprehensiblewords and unable to follow any commands) and intermittently obtunded. Remains on precedex at varying doses (see MAR). Withdraws to pain but unable to open eyes or do any movement to command. Pupils equal, round, reactive, Q4 neuro checks maintained. Suh catheter removed and purewick attempted butpt uncooperative with maintaining positioning of purewick so adult brief applied. Incontinent of urine and smears of stool overnight- incontinence care provided. Mat to 69 at lowest- pt noted to have 1st degree block and team aware. BP WNL. Pt's daughter updated at bedside and provided with family code and information re: visitor policy. Pt on RA now and tolerating well. Pt HR down to 43 this AM- team made aware and will continue to monitor for now. PLAN MOVING FORWARD: Continue to monitor neuro status Titrate dex as tolerated. INDIVIDUALIZED FALL PREVENTION INTERVENTIONS: Patient-specific fall risk factors per assessment: [current deficits]: LDAs Assistance [level of assistance required for transfers and ambulation]: assist x2 Supervision [direct monitoring required during toileting and ADLs]: Direct hands on Surveillance [continuous indirect monitoring]: radha james care monitor, purposeful hourly rounding. Patient-specific fall prevention interventions for sensory deficits provided, if applicable: [X] Yes CPG GOAL OUTCOME EVALUATION: * Plan of Care - Oneida Graham RN - 04/05/2020 7:26 PM EDT Problem: Patient Care Overview Goal: Plan of Care Review Outcome: Ongoing (Interventions Implemented as Appropriate) 04/05/201851 Coping/Psychosocial Plan Of Care Reviewed With patient Plan of Care Review Progress no change OUTCOME EVALUATION NOTE: OUTCOME SUMMARY: Patient admitted from OSH with several days of altered mental status. Patient placed on precedex drip. BC x2, UA, T+S and labs obtained. Rapid Covid test done. Initial Ativan assessment scale discontinued. Pt with episodes of marked agitation and yelling. Patient does not follow commands, open eyesor speak, but occasionally will answer a yes/no question. Unable to determine why patient yells outand gets agitated. PLAN MOVING FORWARD: Neuro checks every four hours. Monitor patients neuro status closely overnight for any changes. INDIVIDUALIZED FALL PREVENTION INTERVENTIONS: Patient-specific fall risk factors per assessment: [current deficits]: Altered mental status, medications, inability to communicate appropriately or use call cunningham. Bed in low position, bed alarm on, pt closely monitored. Restraints protocol for cognitively impaired patient - see restraint documentation. Assistance [level of assistance required for transfers and ambulation]: Full assist - 2 person. Supervision [direct monitoring required during toileting and ADLs]: Continuous supervision. Surveillance [continuous indirect monitoring]: Continuous surveillance. All alarms on, audible and set to appropriate parameters. Patient-specific fall prevention interventions for sensory deficits provided, if applicable: [X] Yes CPG GOAL OUTCOME EVALUATION: Goal: Individualization & Mutuality Outcome: Ongoing (Interventions Implemented as Appropriate) 04/05/201851 Individualization Patient Specific Preferences MELODIE at this time Patient Specific Goals MELODIE at this time Goal: Fall Prevention-Safe Patient Handling Outcome: Ongoing (Interventions Implemented as Appropriate) 04/05/20153604/05/20 1800 [place]agan Fall Risk History of Falling 25 -- Secondary Diagnosis 15 -- Ambulatory Aids 0 -- Intravenous Therapy/Heparin/Saline Lock 20 -- Gait/Transferring 0 -- Mental Status 15 -- Score 75 -- OTHER Barragan Fall Risk High -- Restraint Interventions Safety Promotion/Fall Prevention -- safety round/check completed;fall prevention program maintained Positioning Body Position -- lower extremity elevated, left;lower extremity elevated, right;upper extremity elevated, left;upper extremity elevated, right Activity Activity Type -- bedrest;ROM, active encouraged Activity Assistance Provided -- assistance, 2 people Goal: Infection Control Outcome: Ongoing (Interventions Implemented as Appropriate) 04/05/20153604/05/20 1800 Safety Interventions Isolation Precautions -- standard precautions maintained Infection Prevention -- environmental surveillance performed Coping Strategies Supportive Measures positive reinforcement provided -- Problem: Skin Integrity Impairment, Risk/Actual (Adult) Goal: Identify Related Risk Factors and Signs and Symptoms Related risk factors and signs and symptoms are identified upon initiation of Human Response Clinical Practice Guideline (CPG) Outcome: Ongoing (Interventions Implemented as Appropriate) 04/05/201851 Skin Integrity Impairment, Risk/Actual Skin Integrity Impairment, Risk/Actual: Related Risk Factors cognitive impairment;fluid/nutrition status;sensory impairment Signs and Symptoms (Skin Integrity Impairment) other (see comments) (moisture fissure sacrum/blister buttock) Patient placed on low air loss Total Care Sport bed. Patient turned and positioned every 2 hours utilizing lift sheet. Air chux in place. Sacral mepilex applied. All external pressure sources assessed and minimized. Bony prominences assessed and intact. Pt with low Babatunde score - wound consult ordered. Goal: Skin Integrity/Wound Healing Patient will demonstrate the desired outcomes by discharge/transition of care. Outcome: Ongoing (Interventions Implemented as Appropriate) 04/05/201851 Skin Integrity Impairment, Risk/Actual (Adult) Skin Integrity/Wound Healing making progress toward outcome Problem: Sensory/Perceptual Alteration (Adult) Goal: Identify Related Risk Factors and Signs and Symptoms Related risk factors and signs and symptoms are identified upon initiation of Human Response Clinical Practice Guideline (CPG) 04/05/201851 Sensory/Perceptual Alteration Sensory/Perceptual Alteration: Related Risk Factors neurologic dysfunction Signs and Symptoms (Sensory/Perceptual Alteration) behavior pattern/affect change;communication change;disorientation (time, place, person, situation) Patient was admitted to OSH with altered mental status which has persisted. Pt is able to move all extremities spontaneously, but does not follow commands. Pt does not speak, but occasionally will answer yes/no questions, but infrequently. Pt will not open eyes to command or to painful stimuli. GIGI, 3 and brisk/equal. Precedex drip. Ativan assessment scale discontinued. Goal: Functional Ability/Safety Patient will demonstrate the desired outcomes by discharge/transition of care. Outcome: Ongoing (Interventions Implemented as Appropriate) 04/05/201851 Sensory/Perceptual Alteration (Adult) Functional Ability/Safety unable to achieve outcome Goal: Balanced Response to Sensory Input Patient will demonstrate the desired outcomes by discharge/transition of care. Outcome: Ongoing (Interventions Implemented as Appropriate) 04/05/201851 Sensory/Perceptual Alteration (Adult) Balanced Response to Sensory Input unable to achieve outcome documented in this encounter Plan of Treatment Upcoming Encounters Date Type Department Care Team (Latest Contact Info) Description 05/08/2024 10:30 AM EDT Hospital En[place] [address] Bk Contreras MD [facility] [place] [address] 05/08/2024 10:30 AM EDT - 05/08/2024 11:00 AM EDT [place] [phone] Bk Contreras MD [facility] [place] [address] INJECTION, ANESTHETIC AGENT AND/OR STEROID, TRANSFORAMINAL EPIDURAL, LUMBAR OR SACRAL, SINGLE LEVEL (WRVU 1.9) 05/12/2024 1:00 PM EDT Office Visit Cardiology at [address] [phone] Sadi Styles MD [facility] [place] [address] 05/29/2024 10:15 AM EDT TH Visit (TeleHealth) [facility] [place] [address] Natalee Sanchez APRN [facility] [place] [address] Scheduled Procedures Name Priority Associated Diagnoses Date/Ti me INJECTION, ANESTHETIC AGENT AND/OR STEROID, TRANSFORAMINAL EPIDURAL, LUMBAR OR SACRAL, SINGLE LEVEL (WRVU 1.9) Left lumbar radiculopathy 05/08/2024 10:30 AM EDT documented as of this encounter Procedures Procedure Name Priority Date/Time Associated Diagnosis Comments POCT GLUCOSE Routine 04/15/2020 11:22 AM EDT POCT GLUCOSE Routine 04/15/2020 6:51 AM EDT HEMOGRAM Routine 04/15/2020 4:21 AM EDT DIFFERENTIAL, AUTOMATED Routine 04/15/2020 4:21 AM EDT HC VENIPUNCTURE Routine 04/15/2020 4:21 AM EDT HC PHOSPHORUS, SERUM Routine 04/15/2020 4:21 AM EDT HC MAGNESIUM, SERUM Routine 04/15/2020 4 :21 AM EDT BASIC METABOLIC PANEL (NON-FASTING) Routine 04/15/2020 4:21 AM EDT POCT GLUCOSE Routine 04/14/2020 7:49 PM EDT POCT GLUCOSE Routine 04/14/2020 4:51 PM EDT POCT GLUCOSE Routine 04/14/2020 4:41 PM EDT POCT GLUCOSE Routine 04/14/2020 11:37 AM EDT HEMOGRAM Routine 04/14/2020 6:57 AM EDT DIFFERENTIAL, AUTOMATED Routine 04/14/2020 6:57 AM EDT HC VENIPUNCTURE Routine 04/14/2020 6:57 AM EDT HC PHOSPHORUS, SERUM Routine 04/14/2020 6:57 AM EDT HC MAGNESIUM, SERUM Routine 04/14/2020 6 :57 AM EDT BASIC METABOLIC PANEL (NON-FASTING) Routine 04/14/2020 6:57 AM EDT POCT GLUCOSE Routine 04/14/2020 6:54 AM EDT POCT GLUCOSE Routine 04/13/2020 8:35 PM EDT POCT GLUCOSE Routine 04/13/2020 4:42 PM EDT POCT GLUCOSE Routine 04/13/2020 11:33 AM EDT POCT GLUCOSE Routine 04/13/2020 6:37 AM EDT POCT GLUCOSE Routine 04/13/2020 4:09 AM EDT POCT GLUCOSE Routine 04/13/2020 12:55 AM EDT POCT GLUCOSE Routine 04/12/2020 8:30 PM EDT POCT GLUCOSE Routine 04/12/2020 3:14 PM EDT POCT GLUCOSE Routine 04/12/2020 11:45 AM EDT POCT GLUCOSE Routine 04/12/2020 7:42 AM EDT POCT GLUCOSE Routine 04/12/2020 5:39 AM EDT POCT GLUCOSE Routine 04/12/2020 1:13 AM EDT HEMOGRAM Routine 04/12/2020 1:10 AM EDT DIFFERENTIAL, AUTOMATED Routine 04/12/2020 1:10 AM EDT HC CBC,PLT & AUTO DIFF Routine 04/12/2020 1:10 AM EDT HC PHOSPHORUS, SERUM Routine 04/12/2020 1:10 AM EDT HC MAGNESIUM, SERUM Routine 04/12/2020 1 :10 AM EDT HEPATIC FUNCTION PANEL Routine 04/12/2020 1:10 AM EDT BASIC METABOLIC PANEL (NON-FASTING) Routine 04/12/2020 1:10 AM EDT POCT GLUCOSE Routine 04/11/2020 9:49 PM EDT POCT GLUCOSE Routine 04/11/2020 8:34 PM EDT POCT GLUCOSE Routine 04/11/2020 4:45 PM EDT POCT GLUCOSE Routine 04/11/2020 12:26 PM EDT ZEEG AWAKE, ASLEEP, DROWSY Routine 04/11/2020 12:25 PM EDT POCT GLUCOSE Routine 04/11/2020 8:01 AM EDT POCT GLUCOSE Routine 04/11/2020 4:07 AM EDT POCT GLUCOSE Routine 04/11/2020 12:52 AM EDT HEMOGRAM Routine 04/11/2020 12:30 AM EDT DIFFERENTIAL, AUTOMATED Routine 04/11/2020 12:30 AM EDT HC CBC,PLT & AUTO DIFF Routine 04/11/2020 12:30 AM EDT HC PHOSPHORUS, SERUM Routine 04/11/2020 12:30 AM EDT HC MAGNESIUM, SERUM Routine 04/11/2020 1 2:30 AM EDT BASIC METABOLIC PANEL (NON-FASTING) Routine 04/11/2020 12:30 AM EDT POCT GLUCOSE Routine 04/10/2020 10:13 PM EDT POCT GLUCOSE Routine 04/10/2020 4:17 PM EDT POCT GLUCOSE Routine 04/10/2020 12:20 PM EDT EKG 12-LEAD STAT 04/10/2020 9:37 AM EDT Delirium POCT GLUCOSE Routine 04/10/2020 8:55 AM EDT HEMOGRAM Routine 04/10/2020 5:35 AM EDT DIFFERENTIAL, AUTOMATED Routine 04/10/2020 5:35 AM EDT HC CBC,PLT & AUTO DIFF Routine 04/10/2020 5:35 AM EDT HC PHOSPHORUS, SERUM Routine 04/10/2020 5:35 AM EDT HC MAGNESIUM, SERUM Routine 04/10/2020 5 :35 AM EDT BASIC METABOLIC PANEL (NON-FASTING) Routine 04/10/2020 5:35 AM EDT POCT GLUCOSE Routine 04/10/2020 4:14 AM EDT POCT GLUCOSE Routine 04/10/2020 12:12 AM EDT POCT GLUCOSE Routine 04/09/2020 8:12 PM EDT POCT GLUCOSE Routine 04/09/2020 4:27 PM EDT BLOOD GAS 2 VENOUS Routine 04/09/2020 3: 26 PM EDT POCT GLUCOSE Routine 04/09/2020 11:22 AM EDT HC POTASSIUM Routine 04/09/2020 11:16 AM EDT POCT GLUCOSE Routine 04/09/2020 9:31 AM EDT POCT GLUCOSE Routine 04/09/2020 4:32 AM EDT SCAN, PERIPHERAL BLOOD Routine 04/09/2020 4:30 AM EDT HEMOGRAM Routine 04/09/2020 4:30 AM EDT DIFFERENTIAL, AUTOMATED Routine 04/09/2020 4:30 AM EDT HC CBC,PLT & AUTO DIFF Routine 04/09/2020 4:30 AM EDT HC PHOSPHORUS, SERUM Routine 04/09/2020 4:30 AM EDT HC MAGNESIUM, SERUM Routine 04/09/2020 4 :30 AM EDT BASIC METABOLIC PANEL (NON-FASTING) Routine 04/09/2020 4:30 AM EDT POCT GLUCOSE Routine 04/09/2020 12:07 AM EDT POCT GLUCOSE Routine 04/08/2020 7:55 PM EDT HC POTASSIUM Routine 04/08/2020 3:45 PM EDT POCT GLUCOSE Routine 04/08/2020 3:43 PM EDT EKG 12-LEAD STAT 04/08/2020 12:39 PM EDT Gastroesophageal reflux disease, esophagitis presence not specified POCT GLUCOSE Routine 04/08/2020 11:40 AM EDT EKG 12-LEAD Routine 04/08/2020 8:40 AM EDT Delirium POCT GLUCOSE Routine 04/08/2020 7:48 AM EDT POCT GLUCOSE Routine 04/08/2020 4:00 AM EDT HEMOGRAM Routine 04/08/2020 3:05 AM EDT DIFFERENTIAL, AUTOMATED Routine 04/08/2020 3:05 AM EDT HC CBC,PLT & AUTO DIFF Routine 04/08/2020 3:05 AM EDT HC PHOSPHORUS, SERUM Routine 04/08/2020 3:05 AM EDT HC MAGNESIUM, SERUM Routine 04/08/2020 3 :05 AM EDT BASIC METABOLIC PANEL (NON-FASTING) Routine 04/08/2020 3:05 AM EDT POCT GLUCOSE Routine 04/08/2020 12:07 AM EDT HC POTASSIUM Routine 04/07/2020 9:40 PM EDT POCT GLUCOSE Routine 04/07/2020 7:40 PM EDT HC POTASSIUM Routine 04/07/2020 4:26 PM EDT POCT GLUCOSE Routine 04/07/2020 4:25 PM EDT POCT GLUCOSE Routine 04/07/2020 12:11 PM EDT HC POTASSIUM Routine 04/07/2020 9:57 AM EDT POCT GLUCOSE Routine 04/07/2020 7:51 AM EDT POCT GLUCOSE Routine 04/07/2020 3:55 AM EDT HC POTASSIUM Routine 04/07/2020 3:50 AM EDT HEMOGRAM Routine 04/07/2020 12:56 AM EDT DIFFERENTIAL, AUTOMATED Routine 04/07/2020 12:56 AM EDT HC CBC,PLT & AUTO DIFF Routine 04/07/2020 12:56 AM EDT HC PHOSPHORUS, SERUM Routine 04/07/2020 12:56 AM EDT HC MAGNESIUM, SERUM Routine 04/07/2020 1 2:56 AM EDT BASIC METABOLIC PANEL (NON-FASTING) Routine 04/07/2020 12:56 AM EDT POCT GLUCOSE Routine 04/07/2020 12:04 AM EDT POCT GLUCOSE Routine 04/06/2020 8:16 PM EDT POCT GLUCOSE Routine 04/06/2020 3:49 PM EDT POCT GLUCOSE Routine 04/06/2020 12:04 PM EDT XR ABDOMEN 1 VIEW Routine 04/06/2020 10: 59 AM EDT POCT GLUCOSE Routine 04/06/2020 7:51 AM EDT POCT GLUCOSE Routine 04/06/2020 3:58 AM EDT HC POTASSIUM Routine 04/06/2020 2:15 AM EDT HEMOGRAM Routine 04/06/2020 12:25 AM EDT DIFFERENTIAL, AUTOMATED Routine 04/06/2020 12:25 AM EDT HC CBC,PLT & AUTO DIFF Routine 04/06/2020 12:25 AM EDT HC PHOSPHORUS, SERUM Routine 04/06/2020 12:25 AM EDT HC MAGNESIUM, SERUM Routine 04/06/2020 1 2:25 AM EDT BASIC METABOLIC PANEL (NON-FASTING) Routine 04/06/2020 12:25 AM EDT POCT GLUCOSE Routine 04/06/2020 12:11 AM EDT POCT GLUCOSE Routine 04/05/2020 7:57 PM EDT HC BLOOD CULTURE- STAT 04/05/2020 5:2 5 PM EDT RAPID COVID-19 PCR ([facility]) Routine 04/05/2020 4:08 PM EDT HC BLOOD CULTURE- STAT 04/05/2020 4:0 8 PM EDT HC UA W/OUT MICROSCOPIC STAT 04/05/2020 3:47 PM EDT EKG 12-LEAD STAT 04/05/2020 3:44 PM EDT Gastroesophageal reflux disease, esophagitis presence not specified ABORH RECHECK STATUS STAT 04/05/2020 3:42 PM EDT POCT GLUCOSE Routine 04/05/2020 3:42 PM EDT HEMOGRAM STAT 04/05/2020 3:42 PM EDT DIFFERENTIAL, AUTOMATED STAT 04/05/2020 3:42 PM EDT ABO/RH TYPING STAT 04/05/2020 3:42 PM EDT HC PROTHROMBIN TIME STAT 04/05/2020 3 :42 PM EDT HC CBC,PLT & AUTO DIFF STAT 04/05/2020 3:42 PM EDT ANTIBODY SCREEN STAT 04/05/2020 3:42 PM EDT HC ABO-MICROTITER STAT 04/05/2020 3:4 2 PM EDT HC PHOSPHORUS, SERUM STAT 04/05/2020 3:42 PM EDT HC MAGNESIUM, SERUM STAT 04/05/2020 3 :42 PM EDT HC AMMONIA, PLASMA STAT 04/05/2020 3: 42 PM EDT HEPATIC FUNCTION PANEL STAT 04/05/2020 3:42 PM EDT BASIC METABOLIC PANEL (NON-FASTING) STAT 04/05/2020 3:42 PM EDT documented in this encounter Results * POCT Glucose (04/15/2020 11:22 AM EDT) POC Glucose 97 65 - 199 mg/dL [facility] Comment: Supplemental ranges: <140 mg/dL before meals <180 mg/dL all other times of the day Blood specimen (specimen) 04/15/2020 11:22 AM EDT 04/15/2020 11:22 AM EDT Pili Campos DO POINT OF CARE MIKI T ORDERABLES Performing Organization Address City/[facility]/ZIP Co de Phone Number [facility] [place] [address] * POCT Glucose (04/15/2020 6:51 AM EDT) POC Glucose 117 65 - 199 mg/dL [facility] Comment: Supplemental ranges: <140 mg/dL before meals <180 mg/dL all other times of the day Blood specimen (specimen) 04/15/2020 6:51 AM EDT 04/15/2020 6:51 AM EDT Erik Morales MD POINT OF CARE TEST O RDERABLES Performing Organization Address City/[facility]/ZIP Co de Phone Number [facility] [place] [address] * (ABNORMAL) Differential, Automated (04/15/2020 4:21 AM EDT) Neutrophils % 50.5 % [facility] Neutr Abs (ANC) 3.86 1.70 - 6.10 x10(3)/[facility] Lymphocytes % 35.9 % [facility] Lymphocytes Abs 2.8 0.9 - 3.2 x10(3)/[facility] Monocytes % 10.3 % [facility] Monocyte Abs 0.8 0.3 - 0.9 x10(3)/[facility] Eosinophils % 2.1 % [facility] Eosinophils Abs 0.2 0.0 - 0.4 x10(3)/[facility] Basophils % 0.5 % [facility] Basophils Abs 0.0 0.0 - 0.1 x10(3)/[facility] Immature Gran % 0.70 % [facility] Comment: Immature granulocytes(IG's)percentage and absolute count will include metamyelocytes, myelocytes, and promyelocytes. Blood smears from CBCs yielding IG's will be scanned manually for concordance. If this scan disagrees with the automated IG or if promyelocytes are noted, a manual differential will be performed. Anya Gran Abs 0.05(H) 0.00 - 0.04 x10(3)/[facility] Blood specimen (specimen) 04/15/2020 4:21 AM EDT 04/15/2020 4:52 AM EDT Narrative Resulting Agency Comment Spec In Lab Lila Bryant APRN HEMATOLOGY ORDERABLE S [facility] [place] [address] * (ABNORMAL) Hemogram (04/15/2020 4:21 AM EDT) WBC 7.6 4.0 - 9.5 x10(3)/[facility] RBC 3.73(L) 4.00 - 5.21 x10(6)/[facility] Hemoglobin 10.6(L) 11.7 - 15.5 gm/dL [facility] Hematocrit 32.4(L) 35.7 - 45.8 % [facility] MCV 86.9 82.6 - 94.4 [facility] MCH 28.4 27.1 - 32.0 pg [facility] MCHC 32.7 31.7 - 35.0 gm/dL [facility] Platelets 108(L) 145 - 357 x10(3)/[facility] LABORATORY RDWSD 59.5(H) 37.0 - 46.0 [facility] RDWCV 19.3(H) 11.5 - 14.1 % [facility] MPV 11.4 7.6 - 12.9 [facility] nRBC % Auto 0.0 % [facility] nRBC Abs Auto 0.000 0.000 - 0.000 x10(3)/[facility] Blood specimen (specimen) 04/15/2020 4:21 AM EDT 04/15/2020 4:52 AM EDT Narrative Resulting Agency Comment Spec In Lab Lila Bryant APRN HEMATOLOGY ORDERABLE S Performing Organization Address City/[facility] Co de Phone Number [facility] [place] [address] * Phosphorus (04/15/2020 4:21 AM EDT) Phosphorus 3.8 2.5 - 4.5 mg/dL [facility] Blood specimen (specimen) 04/15/2020 4:21 AM EDT 04/15/2020 4:52 AM EDT Narrative Resulting Agency Comment Spec In Lab Lila Bryant PROTECTIVE SIGNAL REPAIRER CHEMISTRY ORDERABLES Performing Organization Address City/[facility]/ZIP Co de Phone Number [facility] [place] [address] * Magnesium (04/15/2020 4:21 AM EDT) Magnesium 0.96 0.69 - 1.07 mmol/L [facility] Blood specimen (specimen) 04/15/2020 4:21 AM EDT 04/15/2020 4:52 AM EDT Narrative Resulting Agency Comment Spec In Lab Lilaalivia Bryant KURTIS CHEMISTRY ORDERABLES [facility] [place] [address] * (ABNORMAL) Basic Metabolic Panel (non-fasting) (04/15/2020 4:21 AM EDT) Glucose Lvl 124 65 - 199 mg/dL [facility] Comment:Diabetes: >=200 mg/d L plus symptoms BUN 24(H) 8 - 18 mg/dL [facility] Creatinine 1.30(H) 0.70 - 1.20 mg/dL [facility] Sodium 138 135 - 145 mmol/L [facility] Potassium 4.1 3.5 - 5.0 mmol/L [facility] Comment: Please note: ??Patients with WBC >100,000 may have falsely elevated Potassium levels. ??For accurate Potassium quantification in these patients send serum separator tube (gold top) for subsequent determinations. ??Contact the Clinical Chemistry Laboratory if there are any questions. Chloride 101 98 - 107 mmol/L [facility] CO2 24 22 - 31 mmol/L [facility] Anion Gap 13 5 - 15 mmol/L [facility] Calcium 9.9 8.5 - 10.5 mg/dL [facility] Estimated GFR 43(L) >=60 mL/min/1. 73 m?? [facility] Comment: The eGFR was calculated using the CKD-EPI equation. As with all creatinine based estimates of kidney function, eGFR values calculated with the CKD-EPI equation are not accurate in patients with acute kidney failure, extremes of body mass or the acutely ill. [email or web address] eGFR 50(L) >=60 mL/min/1. 73 m?? [facility] Comment: The eGFR was calculated using the CKD-EPI equation. As with all creatinine based estimates of kidney function, eGFR values calculated with the CKD-EPI equation are not accurate in patients with acute kidney failure, extremes of body mass or the acutely ill. [email or web address] Blood specimen (specimen) 04/15/2020 4:21 AM EDT 04/15/2020 4:52 AM EDT Narrative Resulting Agency Comment Spec In Lab Lila Bryant APRN CHEMISTRY ORDERABLES Performing Organization Address [facility] Co de Phone Number [facility] [place] [address] * POCT Glucose (04/14/2020 7:49 PM EDT) POC Glucose 107 65 - 199 mg/dL [facility] Comment: Supplemental ranges: <140 mg/dL before meals <180 mg/dL all other times of the day Blood specimen (specimen) 04/14/2020 7:49 PM EDT 04/14/2020 7:49 PM EDT Erik Morales MD POINT OF CARE TEST O MAUREEN Performing Organization Address [facility] Co de Phone Number [facility] [place] [address] * POCT Glucose (04/14/2020 4:51 PM EDT) POC Glucose 133 65 - 199 mg/dL [facility] Comment: Supplemental ranges: <140 mg/dL before meals <180 mg/dL all other times of the day Blood specimen (specimen) 04/14/2020 4:51 PM EDT 04/14/2020 4:51 PM EDT Erki Morales MD POINT OF CARE TEST O MAUREEN Performing Organization Address [facility] Co de Phone Number [facility] [place] [address] * POCT Glucose (04/14/2020 4:41 PM EDT) POC Glucose 128 65 - 199 mg/dL [facility] Comment: Supplemental ranges: <140 mg/dL before meals <180 mg/dL all other times of the day Blood specimen (specimen) 04/14/2020 4:41 PM EDT 04/14/2020 4:41 PM EDT Erik Morales MD POINT OF CARE TEST O RDERABLES [facility] [place] [address] * POCT Glucose (04/14/2020 11:37 AM EDT) POC Glucose 140 65 - 199 mg/dL [facility] Comment: Supplemental ranges: <140 mg/dL before meals <180 mg/dL all other times of the day Blood specimen (specimen) 04/14/2020 11:37 AM EDT 04/14/2020 11:37 AM EDT Erik Morales MD POINT OF CARE TEST O RDERABLES [facility] [place] [address] * (ABNORMAL) Differential, Automated (04/14/2020 6:57 AM EDT) Neutrophils % 49.4 % [facility] Neutr Abs (ANC) 3.93 1.70 - 6.10 x10(3)/mc L [facility] Lymphocytes % 36.2 % [facility] Lymphocytes Abs 2.9 0.9 - 3.2 x10(3)/mc L [facility] Monocytes % 11.2 % [facility] Monocyte Abs 0.9 0.3 - 0.9 x10(3)/mc L [facility] Eosinophils % 1.9 % [facility] Eosinophils Abs 0.2 0.0 - 0.4 x10(3)/[facility] Basophils % 0.5 % [facility] Basophils Abs 0.0 0.0 - 0.1 x10(3)/[facility] LABORATORY Immature Gran % 0.80 % [facility] Comment: Immature granulocytes(IG's)percentage and absolute count will include metamyelocytes, myelocytes, and promyelocytes. Blood smears from CBCs yielding IG's will be scanned manually for concordance. If this scan disagrees with the automated IG or if promyelocytes are noted, a manual differential will be performed. Anya Gran Abs 0.06(H) 0.00 - 0.04 x10(3)/[facility] LABORATORY Blood specimen (specimen) 04/14/2020 6:57 AM EDT 04/14/2020 7:01 AM EDT Narrative Resulting Agency Comment Spec In Lab Lila Bryant APRN HEMATOLOGY ORDERABLE S [facility] [place] [address] * (ABNORMAL) Hemogram (04/14/2020 6:57 AM EDT) WBC 8.0 4.0 - 9.5 x10(3)/[facility] LABORATORY RBC 3.63(L) 4.00 - 5.21 x10(6)/[facility] LABORATORY Hemoglobin 10.3(L) 11.7 - 15.5 gm/dL [facility] Hematocrit 32.5(L) 35.7 - 45.8 % [facility] MCV 89.5 82.6 - 94.4 fL [facility] MCH 28.4 27.1 - 32.0 pg [facility] MCHC 31.7 31.7 - 35.0 gm/dL [facility] Platelets 103(L) 145 - 357 x10(3)/[facility] LABORATORY RDWSD 59.7(H) 37.0 - 46.0 fL [facility] RDWCV 19.0(H) 11.5 - 14.1 % [facility] MPV 12.6 7.6 - 12.9 fL [facility] nRBC % Auto 0.0 % [facility] LABORATORY nRBC Abs Auto 0.000 0.000 - 0.000 x10(3)/[facility] LABORATORY Blood specimen (specimen) 04/14/2020 6:57 AM EDT 04/14/2020 7:01 AM EDT Narrative Resulting Agency Comment Spec In Lab Lila Bryant APRN HEMATOLOGY ORDERABLE S Performing Organization Address [facility] Co de Phone Number [facility] [place] [address] * Phosphorus (04/14/2020 6:57 AM EDT) Phosphorus 4.1 2.5 - 4.5 mg/dL [facility] Blood specimen (specimen) 04/14/2020 6:57 AM EDT 04/14/2020 7:01 AM EDT Narrative Resulting Agency Comment Spec In Lab Lila Bryant PROTECTIVE SIGNAL REPAIRER CHEMISTRY ORDERABLES Performing Organization Address [facility] Co de Phone Number [facility] [place] [address] * Magnesium (04/14/2020 6:57 AM EDT) Magnesium 0.92 0.69 - 1.07 mmol/L [facility] Blood specimen (specimen) 04/14/2020 6:57 AM EDT 04/14/2020 7:01 AM EDT Narrative Resulting Agency Comment Spec In Lab Lila Reynoldsas PROTECTIVE SIGNAL REPAIRER CHEMISTRY ORDERABLES Performing Organization Address [facility]/ZIP Co de Phone Number [facility] [place] [address] * (ABNORMAL) Basic Metabolic Panel (non-fasting) (04/14/2020 6:57 AM EDT) Glucose Lvl 121 65 - 199 mg/dL [facility] Comment:Diabetes: >=200 mg/d L plus symptoms BUN 23(H) 8 - 18 mg/dL [facility] Creatinine 1.27(H) 0.70 - 1.20 mg/dL [facility] Sodium 137 135 - 145 mmol/L [facility] Potassium 4.1 3.5 - 5.0 mmol/L [facility] Comment: Please note: ??Patients with WBC >100,000 may have falsely elevated Potassium levels. ??For accurate Potassium quantification in these patients send serum separator tube (gold top) for subsequent determinations. ??Contact the Clinical Chemistry Laboratory if there are any questions. Chloride 100 98 - 107 mmol/L [facility] CO2 24 22 - 31 mmol/L [facility] Anion Gap 13 5 - 15 mmol/L [facility] Calcium 9.9 8.5 - 10.5 mg/dL [facility] Comment:result rechecked-sb Estimated GFR 44(L) >=60 mL/min/1. 73 m?? [facility] Comment: The eGFR was calculated using the CKD-EPI equation. As with all creatinine based estimates of kidney function, eGFR values calculated with the CKD-EPI equation are not accurate in patients with acute kidney failure, extremes of body mass or the acutely ill. [email or web address] eGFR 51(L) >=60 mL/min/1. 73 m?? [facility] Comment: The eGFR was calculated using the CKD-EPI equation. As with all creatinine based estimates of kidney function, eGFR values calculated with the CKD-EPI equation are not accurate in patients with acute kidney failure, extremes of body mass or the acutely ill. [email or web address] Blood specimen (specimen) 04/14/2020 6:57 AM EDT 04/14/2020 7:01 AM EDT Narrative Resulting Agency Comment Spec In Lab Lila Bryant APRN CHEMISTRY ORDERABLES Performing Organization Address [facility]/ZIP Co de Phone Number [facility] [place] [address] * POCT Glucose (04/14/2020 6:54 AM EDT) POC Glucose 128 65 - 199 mg/dL [facility] Comment: Supplemental ranges: <140 mg/dL before meals <180 mg/dL all other times of the day Blood specimen (specimen) 04/14/2020 6:54 AM EDT 04/14/2020 6:54 AM EDT Erik Morales MD POINT OF CARE TEST O MAUREEN Performing Organization Address [facility] Co de Phone Number [facility] [place] [address] * POCT Glucose (04/13/2020 8:35 PM EDT) POC Glucose 134 65 - 199 mg/dL [facility] Comment: Supplemental ranges: <140 mg/dL before meals <180 mg/dL all other times of the day Blood specimen (specimen) 04/13/2020 8:35 PM EDT 04/13/2020 8:35 PM EDT Erik Morales MD POINT OF CARE TEST O MAUREEN Performing Organization Address City/[facility] Co de Phone Number [facility] [place] [address] * POCT Glucose (04/13/2020 4:42 PM EDT) POC Glucose 132 65 - 199 mg/dL [facility] Comment: Supplemental ranges: <140 mg/dL before meals <180 mg/dL all other times of the day Blood specimen (specimen) 04/13/2020 4:42 PM EDT 04/13/2020 4:42 PM EDT Erik Morales MD POINT OF CARE TEST O MAUREEN Performing Organization Address [facility] Co de Phone Number [facility] [place] [address] * POCT Glucose (04/13/2020 11:33 AM EDT) POC Glucose 126 65 - 199 mg/dL [facility] Comment: Supplemental ranges: <140 mg/dL before meals <180 mg/dL all other times of the day Blood specimen (specimen) 04/13/2020 11:33 AM EDT 04/13/2020 11:33 AM EDT Erik Morales MD POINT OF CARE TEST O MAUREEN Performing Organization Address [facility] Co de Phone Number [facility] [place] [address] * POCT Glucose (04/13/2020 6:37 AM EDT) POC Glucose 125 65 - 199 mg/dL [facility] Comment: Supplemental ranges: <140 mg/dL before meals <180 mg/dL all other times of the day Blood specimen (specimen) 04/13/2020 6:37 AM EDT 04/13/2020 6:37 AM EDT Erik Morales MD POINT OF CARE TEST O MAUREEN Performing Organization Address [facility] Co de Phone Number [facility] [place] [address] * POCT Glucose (04/13/2020 4:09 AM EDT) POC Glucose 125 65 - 199 mg/dL [facility] Comment: Supplemental ranges: <140 mg/dL before meals <180 mg/dL all other times of the day Blood specimen (specimen) 04/13/2020 4:09 AM EDT 04/13/2020 4:09 AM EDT Erik Morales MD POINT OF CARE TEST O MAUREEN Performing Organization Address [facility] Co de Phone Number [facility] [place] [address] * POCT Glucose (04/13/2020 12:55 AM EDT) POC Glucose 99 65 - 199 mg/dL [facility] Comment: Supplemental ranges: <140 mg/dL before meals <180 mg/dL all other times of the day Blood specimen (specimen) 04/13/2020 12:55 AM EDT 04/13/2020 12:55 AM EDT Erik Morales MD POINT OF CARE TEST O MAUREEN Performing Organization Address [facility] Co de Phone Number [facility] [place] [address] * POCT Glucose (04/12/2020 8:30 PM EDT) POC Glucose 164 65 - 199 mg/dL [facility] Comment: Supplemental ranges: <140 mg/dL before meals <180 mg/dL all other times of the day Blood specimen (specimen) 04/12/2020 8:30 PM EDT 04/12/2020 8:30 PM EDT Erik Morales MD POINT OF CARE TEST O MAUREEN Performing Organization Address [facility] Co de Phone Number [facility] [place] [address] * POCT Glucose (04/12/2020 3:14 PM EDT) POC Glucose 136 65 - 199 mg/dL [facility] Comment: Supplemental ranges: <140 mg/dL before meals <180 mg/dL all other times of the day Blood specimen (specimen) 04/12/2020 3:14 PM EDT 04/12/2020 3:14 PM EDT Erik Morales MD POINT OF CARE TEST O MAUREEN Performing Organization Address [facility] Co de Phone Number [facility] [place] [address] * POCT Glucose (04/12/2020 11:45 AM EDT) POC Glucose 132 65 - 199 mg/dL [facility] Comment: Supplemental ranges: <140 mg/dL before meals <180 mg/dL all other times of the day Blood specimen (specimen) 04/12/2020 11:45 AM EDT 04/12/2020 11:45 AM EDT Erik Morales MD POINT OF CARE TEST O MAUREEN Performing Organization Address [facility] Co de Phone Number [facility] [place] [address] * POCT Glucose (04/12/2020 7:42 AM EDT) POC Glucose 153 65 - 199 mg/dL [facility] Comment: Supplemental ranges: <140 mg/dL before meals <180 mg/dL all other times of the day Blood specimen (specimen) 04/12/2020 7:42 AM EDT 04/12/2020 7:42 AM EDT Erik Morales MD POINT OF CARE TEST O MAUREEN Performing Organization Address [facility] Co de Phone Number [facility] [place] [address] * POCT Glucose (04/12/2020 5:39 AM EDT) POC Glucose 167 65 - 199 mg/dL [facility] Comment: Supplemental ranges: <140 mg/dL before meals <180 mg/dL all other times of the day Blood specimen (specimen) 04/12/2020 5:39 AM EDT 04/12/2020 5:39 AM EDT Erik Morales MD POINT OF CARE TEST O RDERABLES Performing Organization Address [facility] Co de Phone Number [facility] [place] [address] * POCT Glucose (04/12/2020 1:13 AM EDT) Pathologist [facility] POC Glucose 164 65 - 199 mg/dL [facility] Comment: Supplemental ranges: <140 mg/dL before meals <180 mg/dL all other times of the day Blood specimen (specimen) 04/12/2020 1:13 AM EDT 04/12/2020 1:13 AM EDT Erik Morales MD POINT OF CARE TEST O RDERABLES Performing Organization Address [facility] de Phone Number [facility] [place] [address] * (ABNORMAL) Hepatic Function Panel (04/12/2020 1:10 AM EDT) Pathologist [facility] Total Protein 6.4 6.1 - 8.0 gm/dL [facility] Albumin 3.1(L) 3.2 - 5.2 gm/dL [facility] AST Not Perf 0 - 30 [facility] Comment: Unable to quantitate due to sample hemolysis. ??Sample redraw suggested. Called by: cara, Read back by: Yajaira Epps, Date/Time:04/12/20 13:01. ALT 15 0 - 30 unit/L [facility] Alk Phos 80 35 - 105 unit/L [facility] Total Bilirubin 0.2 0.2 - 1.3 mg/dL [facility] Bili, Direct 0.1 0.0 - 0.3 mg/dL [facility] Blood specimen (specimen) Venous Draw / Unknown 04/12/2020 1:10 AM EDT 04/12/2020 1:35 AM EDT Narrative Resulting Agency Comment Spec In Lab Lila Bryant APRN CHEMISTRY ORDERABLES Performing Organization Address [facility]/ZIP [place] [address] * Differential, Automated (04/12/2020 1:10 AM EDT) Neutrophils % 59.1 % [facility] Neutr Abs (ANC) 4.53 1.70 - 6.10 x10(3)/[facility] LABORATORY Lymphocytes % 29.3 % [facility] Lymphocytes Abs 2.2 0.9 - 3.2 x10(3)/[facility] LABORATORY Monocytes % 8.9 % [facility] Monocyte Abs 0.7 0.3 - 0.9 x10(3)/[facility] LABORATORY Eosinophils % 1.8 % [facility] Eosinophils Abs 0.1 0.0 - 0.4 x10(3)/[facility] LABORATORY Basophils % 0.4 % [facility] Basophils Abs 0.0 0.0 - 0.1 x10(3)/[facility] LABORATORY Immature Gran % 0.50 % [facility] Comment: Immature granulocytes(IG's)percentage and absolute count will include metamyelocytes, myelocytes, and promyelocytes. Blood smears from CBCs yielding IG's will be scanned manually for concordance. If this scan disagrees with the automated IG or if promyelocytes are noted, a manual differential will be performed. Anya Gran Abs 0.04 0.00 - 0.04 x10(3)/[facility] LABORATORY Blood specimen (specimen) 04/12/2020 1:10 AM EDT 04/12/2020 1:25 AM EDT Narrative Resulting Agency Comment Spec In Lab Dany Croft MD [place] [address] * (ABNORMAL) Hemogram (04/12/2020 1:10 AM EDT) WBC 7.7 4.0 - 9.5 x10(3)/[facility] LABORATORY RBC 3.24(L) 4.00 - 5.21 x10(6)/[facility] LABORATORY Hemoglobin 9.1(L) 11.7 - 15.5 gm/dL [facility] Hematocrit 28.3(L) 35.7 - 45.8 % [facility] MCV 87.3 82.6 - 94.4 fL [facility] MCH 28.1 27.1 - 32.0 pg [facility] MCHC 32.2 31.7 - 35.0 gm/dL [facility] Platelets 108(L) 145 - 357 x10(3)/[facility] RDWSD 56.4(H) 37.0 - 46.0 [facility] LABORATORY RDWCV 18.6(H) 11.5 - 14.1 % [facility] MPV 12.0 7.6 - 12.9 [facility] LABORATORY nRBC % Auto 0.0 % [facility] nRBC Abs Auto 0.000 0.000 - 0.000 x10(3)/[facility] LABORATORY Blood specimen (specimen) 04/12/2020 1:10 AM EDT 04/12/2020 1:25 AM EDT Narrative Resulting Agency Comment Spec In Lab Dany Croft MD HEMATOLOGY ORDERABLE S Performing Organization Address City/State/[facility] de Phone Number [facility] [place] [address] * Phosphorus (04/12/2020 1:10 AM EDT) Phosphorus 2.7 2.5 - 4.5 mg/dL [facility] Blood specimen (specimen) 04/12/2020 1:10 AM EDT 04/12/2020 1:25 AM EDT Narrative Resulting Agency Comment Spec In Lab Lila L Bryant PROTECTIVE SIGNAL REPAIRER CHEMISTRY ORDERABLES [facility] [place] [address] * Magnesium (04/12/2020 1:10 AM EDT) Magnesium 0.77 0.69 - 1.07 mmol/L [facility] Blood specimen (specimen) 04/12/2020 1:10 AM EDT 04/12/2020 1:25 AM EDT Narrative Resulting Agency Comment Spec In Lab Lila Bryant PROTECTIVE SIGNAL REPAIRER CHEMISTRY ORDERABLES Performing Organization Address City/[facility]/ZIP Co de Phone Number [facility] [place] [address] * (ABNORMAL) Basic Metabolic Panel (non-fasting) (04/12/2020 1:10 AM EDT) Pathologist [facility] Glucose Lvl 154 65 - 199 mg/dL [facility] Comment:Diabetes: >=200 mg/d L plus symptoms BUN 32(H) 8 - 18 mg/dL [facility] Creatinine 1.05 0.70 - 1.20 mg/dL [facility] Sodium 140 135 - 145 mmol/L [facility] Potassium 4.1 3.5 - 5.0 mmol/L [facility] Comment: Please note: ??Patients with WBC >100,000 may have falsely elevated Potassium levels. ??For accurate Potassium quantification in these patients send serum separator tube (gold top) for subsequent determinations. ??Contact the Clinical Chemistry Laboratory if there are any questions. Chloride 105 98 - 107 mmol/L [facility] CO2 24 22 - 31 mmol/L [facility] Anion Gap 11 5 - 15 mmol/L [facility] Calcium 8.6 8.5 - 10.5 mg/dL [facility] Estimated GFR 55(L) >=60 mL/min/1. 73 m?? [facility] Comment: The eGFR was calculated using the CKD-EPI equation. As with all creatinine based estimates of kidney function, eGFR values calculated with the CKD-EPI equation are not accurate in patients with acute kidney failure, extremes of body mass or the acutely ill. [email or web address] eGFR 64 >=60 mL/min/1. 73 m?? [facility] Comment: The eGFR was calculated using the CKD-EPI equation. As with all creatinine based estimates of kidney function, eGFR values calculated with the CKD-EPI equation are not accurate in patients with acute kidney failure, extremes of body mass or the acutely ill. [email or web address] Blood specimen (specimen) 04/12/2020 1:10 AM EDT 04/12/2020 1:25 AM EDT Narrative Resulting Agency Comment Spec In Lab Lila Bryant APRN CHEMISTRY ORDERABLES Performing Organization Address [facility] Co de Phone Number [facility] [place] [address] * POCT Glucose (04/11/2020 9:49 PM EDT) POC Glucose 180 65 - 199 mg/dL [facility] Comment: Supplemental ranges: <140 mg/dL before meals <180 mg/dL all other times of the day Blood specimen (specimen) 04/11/2020 9:49 PM EDT 04/11/2020 9:49 PM EDT Erik Morales MD POINT OF CARE TEST O RDERABLES Performing Organization Address [facility]/ZIP Co de Phone Number [facility] [place] [address] * POCT Glucose (04/11/2020 8:34 PM EDT) POC Glucose 167 65 - 199 mg/dL [facility] Comment: Supplemental ranges: <140 mg/dL before meals <180 mg/dL all other times of the day Blood specimen (specimen) 04/11/2020 8:34 PM EDT 04/11/2020 8:34 PM EDT Erik Morales MD POINT OF CARE TEST O RDERABLES Performing Organization Address [facility] Co de Phone Number [facility] [place] [address] * (ABNORMAL) POCT Glucose (04/11/2020 4:45 PM EDT) POC Glucose 213(H) 65 - 199 mg/dL [facility] Comment: Supplemental ranges: <140 mg/dL before meals <180 mg/dL all other times of the day Blood specimen (specimen) 04/11/2020 4:45 PM EDT 04/11/2020 4:45 PM EDT Erik Morales MD POINT OF CARE TEST O RDERAMARIE Performing Organization Address [facility] Co de Phone Number [facility] [place] [address] * POCT Glucose (04/11/2020 12:26 PM EDT) POC Glucose 144 65 - 199 mg/dL [facility] Comment: Supplemental ranges: <140 mg/dL before meals <180 mg/dL all other times of the day Blood specimen (specimen) 04/11/2020 12:26 PM EDT 04/11/2020 12:26 PM EDT Erik Morales MD POINT OF CARE TEST O MAUREEN Performing Organization Address [facility] Co de Phone Number [facility] [place] [address] * EEG awake, asleep, drowsy, routine (04/11/2020 12:25 PM EDT) Narrative Cassie Wu - 04/11/2020 12:25 PM EDT Cassie Wu ? 04/11/2020 12:26 PM [facility] Department of Neurology Inpatient EEG Report Name of the Patient: ??Toyin Lion Date of : ?1955 Date of Service: ?04/11/2020 Referring physician: ?Lila Orozco ARNP BRIEF HISTORY: Toyin Lion is a 64 y.o. patient with AMS. MEDICATIONS: Current Facility-Administered Medications Medication Dose Route Frequency Provider Last Rate Last Dose ? ? cloNIDine (Catapres) tablet 0.1 mg ??0.1 mg Oral TID Dany Hernandez MD ?? 0.1 mg at 04/11/20938 ? ? lactated ringers infusion ??75 mL/hr Intravenous Continuous Dany Hernandez MD 75 mL/hr at 04/11/20800 75 mL/hr at 04/11/20800 ? ? melatonin tablet 6 mg ??6 mg Oral Nightly Dany Hernandez MD ?? 6 mg at 04/10/202199 ? ? tube feeding diet ??800 mL Per NG tube Continuous Dany Hernandez MD 40 mL/hr at 04/10/202227 800 mL at 04/10/202227 ? ? magnesium oxide (Mag-Ox) tablet 400 mg ??400 mg Per NG tube BID Dany Hernandez MD ?? 400 mg at 04/11/20938 ? ? acetaminophen (Tylenol) (32.02 mg/mL) oral liquid 650 mg ??650 mg Per NG tube Q4H PRN Dany Hernandez MD ?? 650 mg at 04/10/202202 ? ? docusate sodium (Colace) (10 mg/mL) oral liquid 200 mg ??200 mg Per NG tube BID Dany Hernandez MD ?? 200 mg at 04/11/20938 And ? ? sennosides (Senokot) (1.76 mg/mL) oral liquid 17.6 mg ??17.6 mg Per NG tube BID Dany Hernandez MD ?? 17.6 mg at 04/11/20938 ? ? labetalol (NORMODYNE,TRANDATE) injection 10 mg ??10 mg Intravenous Q2H PRN Dany Hernandez MD ?? 10 mg at 04/06/202304 ? ? hydrALAZINE (APRESOLINE) injection 10 mg ??10 mg Intravenous Q2H PRN Dany Hernandez MD ? pantoprazole (PROTONIX) injection 40 mg ??40 mg Intravenous Daily Dany Hernandez MD ?? 40 mg at 04/11/20938 ? ? glucose (GLUTOSE) 40% oral geL ??15-30 g Buccal Q30 Min PRN Dany Hernandez MD ? Or ? ? dextrose 10% infusion ??250 mL Intravenous Q30 Min PRN Dany Hernandez MD ? Or ? ? glucagon (human recombinant) injection SolR 1 mg ??1 mg Intramuscular Q30 Min PRN Dany Hernandez MD ? insulin lispro (HumaLOG) VIAL injection 2-8 Units ??2-8 Units Subcutaneous Q4H Dany Cruz MD ?? 4 Units at 04/11/20800 ? ? sodium chloride 0.9 % (flush) flush 5 mL ??5 mL Intravenous BID Dany Hernandez MD ?? 5 mL at 04/11/20938 ? ? sodium chloride 0.9 % (flush) flush 5-20 mL ??5-20 mL Intravenous Q1 Min PRN Dany Hernandez MD ? lidocaine (XYLOCAINE) 10 mg/mL (1 %) injection 3 mg ??0.3 mL Subcutaneous Once PRN Dany Hernandez MD ? heparin (Porcine) subcutaneous injection 5,000 Units ??5,000 Units Subcutaneous Q8H Dany Cruz MD ?? 5,000 Units at 04/11/20800 ? ? folic acid injection 1 mg ??1 mg Intravenous Daily Dany Hernandez MD ?? 1 mg at 04/11/20938 ? ? [START ON 04/12/2020] thiamine (Vitamin B1) tablet 100 mg ??100 mg Oral Daily Dany Hernandez MD ? METHODS: A 21 channel digitized electroencephalogram was performed in the [facility] Clinical Neurophysiology Laboratory. The 10/20 international system of electrode placement was used and bipolar and referential electrode montages were recorded. ??In addition to EEG the patient was monitored for EKG and lateral/vertical eye movements. Video was recorded during the session. The duration of the recording was 1 hour. GROUNDHAND'S REPORT: Performed by: NG Patient was not sleep deprived. Sleep was not attained. Photic stimulation was performed. Hyperventilation was not performed. Effort was was not adequate. Movement and other artifact was significant. Comments:none Lila Alberto Bryant APRN NEUROLOGY ORDERABLES * POCT Glucose (04/11/2020 8:01 AM EDT) POC Glucose 182 65 - 199 mg/dL [facility] Comment: Supplemental ranges: <140 mg/dL before meals <180 mg/dL all other times of the day Blood specimen (specimen) 04/11/2020 8:01 AM EDT 04/11/2020 8:01 AM EDT Erik Morales MD POINT OF CARE TEST O MAUREEN Performing Organization Address [facility] Co de Phone Number [facility] [place] [address] * POCT Glucose (04/11/2020 4:07 AM EDT) POC Glucose 138 65 - 199 mg/dL [facility] Comment: Supplemental ranges: <140 mg/dL before meals <180 mg/dL all other times of the day Blood specimen (specimen) 04/11/2020 4:07 AM EDT 04/11/2020 4:07 AM EDT Dany Croft MD POINT OF CARE TEST O MAUREEN [facility] [place] [address] * (ABNORMAL) POCT Glucose (04/11/2020 12:52 AM EDT) POC Glucose 206(H) 65 - 199 mg/dL [facility] Comment: Supplemental ranges: <140 mg/dL before meals <180 mg/dL all other times of the day Blood specimen (specimen) 04/11/2020 12:52 AM EDT 04/11/2020 12:52 AM EDT Dany Croft MD POINT OF CARE TEST O RDERABLES [facility] [place] [address] * (ABNORMAL) Differential, Automated (04/11/2020 12:30 AM EDT) Neutrophils % 58.6 % [facility] Neutr Abs (ANC) 5.94 1.70 - 6.10 x10(3)/[facility] LABORATORY Lymphocytes % 29.4 % [facility] Lymphocytes Abs 3.0 0.9 - 3.2 x10(3)/[facility] LABORATORY Monocytes % 9.1 % [facility] Monocyte Abs 0.9 0.3 - 0.9 x10(3)/[facility] LABORATORY Eosinophils % 1.9 % [facility] Eosinophils Abs 0.2 0.0 - 0.4 x10(3)/[facility] LABORATORY Basophils % 0.4 % [facility] Basophils Abs 0.0 0.0 - 0.1 x10(3)/[facility] LABORATORY Immature Gran % 0.60 % [facility] Comment: Immature granulocytes(IG's)percentage and absolute count will include metamyelocytes, myelocytes, and promyelocytes. Blood smears from CBCs yielding IG's will be scanned manually for concordance. If this scan disagrees with the automated IG or if promyelocytes are noted, a manual differential will be performed. Anya Gran Abs 0.06(H) 0.00 - 0.04 x10(3)/[facility] LABORATORY Blood specimen (specimen) 04/11/2020 12:30 AM EDT 04/11/2020 1:24 AM EDT Narrative Resulting Agency Comment Spec In Lab Dany Croft MD HEMATOLOGY ORDERABLE S [facility] [place] [address] * (ABNORMAL) Hemogram (04/11/2020 12:30 AM EDT) Pathologist [facility] WBC 10.1(H) 4.0 - 9.5 x10(3)/[facility] LABORATORY RBC 3.48(L) 4.00 - 5.21 x10(6)/[facility] LABORATORY Hemoglobin 9.7(L) 11.7 - 15.5 gm/dL [facility] Hematocrit 30.2(L) 35.7 - 45.8 % [facility] MCV 86.8 82.6 - 94.4 [facility] LABORATORY MCH 27.9 27.1 - 32.0 pg [facility] MCHC 32.1 31.7 - 35.0 gm/dL [facility] Platelets 136(L) 145 - 357 x10(3)/[facility] LABORATORY RDWSD 55.7(H) 37.0 - 46.0 [facility] LABORATORY RDWCV 18.7(H) 11.5 - 14.1 % [facility] MPV 12.4 7.6 - 12.9 [facility] LABORATORY nRBC % Auto 0.0 % [facility] nRBC Abs Auto 0.000 0.000 - 0.000 x10(3)/[facility] LABORATORY Blood specimen (specimen) 04/11/2020 12:30 AM EDT 04/11/2020 1:24 AM EDT Narrative Resulting Agency Comment Spec In Lab Dany Croft MD HEMATOLOGY ORDERABLE S Performing Organization Address City/[facility]/ZIP Co de Phone Number [facility] [place] [address] * Phosphorus (04/11/2020 12:30 AM EDT) Pathologist [facility] Phosphorus 2.8 2.5 - 4.5 mg/dL [facility] Blood specimen (specimen) 04/11/2020 12:30 AM EDT 04/11/2020 1:24 AM EDT Narrative Resulting Agency Comment Spec In Lab Lila Bryant PROTECTIVE SIGNAL REPAIRER CHEMISTRY ORDERABLES Performing Organization Address [facility] de Phone Number [facility] [place] [address] * Magnesium (04/11/2020 12:30 AM EDT) Magnesium 0.90 0.69 - 1.07 mmol/L [facility] Blood specimen (specimen) 04/11/2020 12:30 AM EDT 04/11/2020 1:24 AM EDT Narrative Resulting Agency Comment Spec In Lab Lila Bryant PROTECTIVE SIGNAL REPAIRER CHEMISTRY ORDERABLES Performing Organization Address [facility] de Phone Number [facility] [place] [address] * (ABNORMAL) Basic Metabolic Panel (non-fasting) (04/11/2020 12:30 AM EDT) Glucose Lvl 205(H) 65 - 199 mg/dL [facility] Comment:Diabetes: >=200 mg/d L plus symptoms BUN 42(H) 8 - 18 mg/dL [facility] Creatinine 1.46(H) 0.70 - 1.20 mg/dL [facility] Sodium 139 135 - 145 mmol/L [facility] Potassium 4.2 3.5 - 5.0 mmol/L [facility] Comment: Please note: ??Patients with WBC >100,000 may have falsely elevated Potassium levels. ??For accurate Potassium quantification in these patients send serum separator tube (gold top) for subsequent determinations. ??Contact the Clinical Chemistry Laboratory if there are any questions. Chloride 100 98 - 107 mmol/L [facility] CO2 27 22 - 31 mmol/L [facility] Anion Gap 12 5 - 15 mmol/L [facility] Calcium 9.2 8.5 - 10.5 mg/dL [facility] Estimated GFR 37(L) >=60 mL/min/1. 73 m?? [facility] Comment: The eGFR was calculated using the CKD-EPI equation. As with all creatinine based estimates of kidney function, eGFR values calculated with the CKD-EPI equation are not accurate in patients with acute kidney failure, extremes of body mass or the acutely ill. [email or web address] eGFR 43(L) >=60 mL/min/1. 73 m?? [facility] Comment: The eGFR was calculated using the CKD-EPI equation. As with all creatinine based estimates of kidney function, eGFR values calculated with the CKD-EPI equation are not accurate in patients with acute kidney failure, extremes of body mass or the acutely ill. [email or web address] Blood specimen (specimen) 04/11/2020 12:30 AM EDT 04/11/2020 1:24 AM EDT Narrative Resulting Agency Comment Spec In Lab Lila Bryant APRN CHEMISTRY ORDERABLES Performing Organization Address City/[facility]/ZIP Co de Phone Number [facility] [place] [address] * POCT Glucose (04/10/2020 10:13 PM EDT) POC Glucose 190 65 - 199 mg/dL [facility] Comment: Supplemental ranges: <140 mg/dL before meals <180 mg/dL all other times of the day Blood specimen (specimen) 04/10/2020 10:13 PM EDT 04/10/2020 10:13 PM EDT Dany Croft MD POINT OF CARE TEST O RDERABLES Performing Organization Address City/[facility]/ZIP Co de Phone Number [facility] [place] [address] * POCT Glucose (04/10/2020 4:17 PM EDT) POC Glucose 199 65 - 199 mg/dL [facility] Comment: Supplemental ranges: <140 mg/dL before meals <180 mg/dL all other times of the day Blood specimen (specimen) 04/10/2020 4:17 PM EDT 04/10/2020 4:17 PM EDT Dany Croft MD POINT OF CARE TEST O RDERAMARIE Performing Organization Address [facility] Co de Phone Number [facility] [place] [address] * POCT Glucose (04/10/2020 12:20 PM EDT) POC Glucose 183 65 - 199 mg/dL [facility] Comment: Supplemental ranges: <140 mg/dL before meals <180 mg/dL all other times of the day Blood specimen (specimen) 04/10/2020 12:20 PM EDT 04/10/2020 12:20 PM EDT Reyes Aguilar MD POINT OF CARE TEST O RDERABLES Performing Organization Address [facility] Co de Phone Number [facility] [place] [address] * EKG 12 Lead (04/10/2020 9:37 AM EDT) Ventricular rate 114 BPM MUSE SYSTEM Atrial Rate 114 BPM MUSE SYSTEM P-R Interval 186 ms MUSE SYSTEM QRS Duration 78 ms MUSE SYSTEM Q-T Interval 412 ms MUSE SYSTEM QTC Calculated (Bezet) 567 ms MUSE SYSTEM Calculated P [place] 55 degrees MUSE SYSTEM Calculated R [place] 47 degrees MUSE SYSTEM Calculated T [place] 135 degrees MUSE SYSTEM INTERPRETATION Sinus tachycardia with Premature supraventricular complexes possible ??Inferior infarct , age undetermined possible ??Anterior infarct , age undetermined ??vs lead placement T wave abnormality, consider lateral ischemia Prolonged QT Abnormal ECG When compared with ECG of 08-APR-2020 12:39, Premature supraventricular complexes are now Present T wave inversion now evident in Anterolateral leads artifact present; may impede interpretation Confirmed by Debbi Zimmer (Vivienne) on 04/10/2020 2:55:30 PM MUSE SYSTEM 04/10/2020 9:37 AM EDT 04/10/2020 2:55 PM EDT Rebecca Agarwal KURTIS ECG ORDERABLES MUSE SYSTEM * POCT Glucose (04/10/2020 8:55 AM EDT) POC Glucose 192 65 - 199 mg/dL [facility] Comment: Supplemental ranges: <140 mg/dL before meals <180 mg/dL all other times of the day Blood specimen (specimen) 04/10/2020 8:55 AM EDT 04/10/2020 8:55 AM EDT Reyes Aguilar MD POINT OF CARE TEST O RDERABLES Performing Organization Address City/[facility]/ZIP Co de Phone Number [facility] [place] [address] * (ABNORMAL) Differential, Automated (04/10/2020 5:35 AM EDT) Neutrophils % 64.1 % [facility] Neutr Abs (ANC) 7.45(H) 1.70 - 6.10 x10(3)/mc L [facility] Lymphocytes % 25.1 % [facility] Lymphocytes Abs 2.9 0.9 - 3.2 x10(3)/mc L [facility] Monocytes % 8.2 % [facility] Monocyte Abs 1.0(H) 0.3 - 0.9 x10(3)/mc L [facility] Eosinophils % 1.6 % [facility] Eosinophils Abs 0.2 0.0 - 0.4 x10(3)/mc L [facility] Basophils % 0.4 % [facility] Basophils Abs 0.0 0.0 - 0.1 x10(3)/mc L [facility] Immature Gran % 0.60 % [facility] Comment: Immature granulocytes(IG's)percentage and absolute count will include metamyelocytes, myelocytes, and promyelocytes. Blood smears from CBCs yielding IG's will be scanned manually for concordance. If this scan disagrees with the automated IG or if promyelocytes are noted, a manual differential will be performed. Anya Gran Abs 0.07(H) 0.00 - 0.04 x10(3)/ L [facility] Blood specimen (specimen) 04/10/2020 5:35 AM EDT 04/10/2020 5:52 AM EDT Narrative Resulting Agency Comment Spec In Lab Heavenly Alberto Magana PROTECTIVE SIGNAL REPAIRER HEMATOLOGY ORDERAB LES [facility] [place] [address] * (ABNORMAL) Hemogram (04/10/2020 5:35 AM EDT) WBC 11.6(H) 4.0 - 9.5 x10(3)/[facility] LABORATORY RBC 4.17 4.00 - 5.21 x10(6)/[facility] LABORATORY Hemoglobin 11.3(L) 11.7 - 15.5 gm/dL [facility] Hematocrit 35.7 35.7 - 45.8 % [facility] MCV 85.6 82.6 - 94.4 fL [facility] MCH 27.1 27.1 - 32.0 pg [facility] MCHC 31.7 31.7 - 35.0 gm/dL [facility] Platelets 170 145 - 357 x10(3)/[facility] LABORATORY RDWSD 53.1(H) 37.0 - 46.0 fL [facility] RDWCV 18.5(H) 11.5 - 14.1 % [facility] MPV 12.0 7.6 - 12.9 fL [facility] nRBC % Auto 0.0 % [facility] nRBC Abs Auto 0.000 0.000 - 0.000 x10(3)/mcL [facility] Blood specimen (specimen) 04/10/2020 5:35 AM EDT 04/10/2020 5:52 AM EDT Narrative Resulting Agency Comment Spec In Lab Heavenly Magana PROTECTIVE SIGNAL REPAIRER HEMATOLOGY ORDERAB LES Performing Organization Address City/[facility]/ZIP Co de Phone Number [facility] [place] [address] * Phosphorus (04/10/2020 5:35 AM EDT) Phosphorus 3.0 2.5 - 4.5 mg/dL [facility] Blood specimen (specimen) 04/10/2020 5:35 AM EDT 04/10/2020 5:52 AM EDT Narrative Resulting Agency Comment Spec In Lab Lila L Annette PROTECTIVE SIGNAL REPAIRER CHEMISTRY ORDERABLES Performing Organization Address [facility] Co de Phone Number [facility] [place] [address] * Magnesium (04/10/2020 5:35 AM EDT) Magnesium 0.97 0.69 - 1.07 mmol/L [facility] Blood specimen (specimen) 04/10/2020 5:35 AM EDT 04/10/2020 5:52 AM EDT Narrative Resulting Agency Comment Spec In Lab Lila Bryant PROTECTIVE SIGNAL REPAIRER CHEMISTRY ORDERABLES Performing Organization Address [facility] Co de Phone Number [facility] [place] [address] * (ABNORMAL) Basic Metabolic Panel (non-fasting) (04/10/2020 5:35 AM EDT) Glucose Lvl 200(H) 65 - 199 mg/dL [facility] Comment:Diabetes: >=200 mg/d L plus symptoms BUN 32(H) 8 - 18 mg/dL [facility] Creatinine 1.28(H) 0.70 - 1.20 mg/dL [facility] Sodium 139 135 - 145 mmol/L [facility] Potassium 4.2 3.5 - 5.0 mmol/L [facility] Comment: Please note: ??Patients with WBC >100,000 may have falsely elevated Potassium levels. ??For accurate Potassium quantification in these patients send serum separator tube (gold top) for subsequent determinations. ??Contact the Clinical Chemistry Laboratory if there are any questions. Chloride 99 98 - 107 mmol/L [facility] CO2 27 22 - 31 mmol/L [facility] Anion Gap 13 5 - 15 mmol/L [facility] Calcium 10.0 8.5 - 10.5 mg/dL [facility] Estimated GFR 44(L) >=60 mL/min/1. 73 m?? [facility] Comment: The eGFR was calculated using the CKD-EPI equation. As with all creatinine based estimates of kidney function, eGFR values calculated with the CKD-EPI equation are not accurate in patients with acute kidney failure, extremes of body mass or the acutely ill. [email or web address] eGFR 50(L) >=60 mL/min/1. 73 m?? [facility] Comment: The eGFR was calculated using the CKD-EPI equation. As with all creatinine based estimates of kidney function, eGFR values calculated with the CKD-EPI equation are not accurate in patients with acute kidney failure, extremes of body mass or the acutely ill. [email or web address] Blood specimen (specimen) 04/10/2020 5:35 AM EDT 04/10/2020 5:52 AM EDT Narrative Resulting Agency Comment Spec In Lab Lila Bryant APRN CHEMISTRY ORDERABLES [facility] [place] [address] * POCT Glucose (04/10/2020 4:14 AM EDT) POC Glucose 198 65 - 199 mg/dL [facility] Comment: Supplemental ranges: <140 mg/dL before meals <180 mg/dL all other times of the day Blood specimen (specimen) 04/10/2020 4:14 AM EDT 04/10/2020 4:14 AM EDT Reyes Aguilar MD POINT OF CARE TEST O MAUREEN Performing Organization Address City/[facility]/ZIP Co de Phone Number [facility] [place] [address] * (ABNORMAL) POCT Glucose (04/10/2020 12:12 AM EDT) POC Glucose 213(H) 65 - 199 mg/dL [facility] Comment: Supplemental ranges: <140 mg/dL before meals <180 mg/dL all other times of the day Blood specimen (specimen) 04/10/2020 12:12 AM EDT 04/10/2020 12:12 AM EDT Reyes Aguilar MD POINT OF CARE TEST O MAUREEN Performing Organization Address [facility] Co de Phone Number [facility] [place] [address] * (ABNORMAL) POCT Glucose (04/09/2020 8:12 PM EDT) POC Glucose 215(H) 65 - 199 mg/dL [facility] Comment: Supplemental ranges: <140 mg/dL before meals <180 mg/dL all other times of the day Blood specimen (specimen) 04/09/2020 8:12 PM EDT 04/09/2020 8:12 PM EDT Reyes Aguilar MD POINT OF CARE TEST O MAUREEN Performing Organization Address City/[facility]/ZIP Co de Phone Number [facility] [place] [address] * POCT Glucose (04/09/2020 4:27 PM EDT) POC Glucose 169 65 - 199 mg/dL [facility] Comment: Supplemental ranges: <140 mg/dL before meals <180 mg/dL all other times of the day Blood specimen (specimen) 04/09/2020 4:27 PM EDT 04/09/2020 4:27 PM EDT Reyes Aguilar MD POINT OF CARE TEST O RDERABLES [facility] [place] [address] * (ABNORMAL) BLOOD GAS 2 VENOUS (04/09/2020 3:26 PM EDT) pH Kamran 7.45(H) 7.32 - 7.42 [facility] pCO2 Kamran 38(L) 41 - 51 mmHg [facility] pO2 Kamran 42(H) 25 - 40 mmHg [facility] HCO3 Kamran 26.1 mmol/L [facility] BE Kamran 2.1 mmol/L [facility] Hgb Blood Gas 10.9(L) 11.7 - 15.5 gm/dL [facility] O2HB Kamran 74.8 % [facility] COHB Kamran 0.4 % [facility] Comment: Nonsmokers: 0.5-1.5% COHB Smokers: Variable, but usually less than 10% Toxic: 20-30% COHB Lethal: Greater than 60% COHB METHB Kamran 0.1 <=1.5 % [facility] Na Whole Blood 138 135 - 145 mmol/L [facility] K Whole Blood 3.6 3.5 - 5.0 mmol/L [facility] Comment: Please note: Patients with WBC >100,000 may have falsely elevated Potassium levels. Contact the Clinical Chemistry Laboratory if there are any questions. ICa Whole Blood 1.16 1.15 - 1.33 mmol/L [facility] Comment: Note: ??Total bilirubin higher than 20 mg/dL may lead to falsely low ionized calcium. CL Whole Blood 106 98 - 107 mmol/L [facility] Gluc Whole Bld 172 65 - 199 mg/dL [facility] Comment:Diabetes: >=200 mg/d L plus symptoms Lactate WB 1.6 0.5 - 2.2 mmol/L [facility] BGas Source Venous [facility] Blood specimen (specimen) 04/09/2020 3:26 PM EDT 04/09/2020 3:26 PM EDT Reyes Aguilar MD CHEMISTRY ORDERABLES Performing Organization Address [facility] Co de Phone Number [facility] [place] [address] * (ABNORMAL) POCT Glucose (04/09/2020 11:22 AM EDT) POC Glucose 209(H) 65 - 199 mg/dL [facility] Comment: Supplemental ranges: <140 mg/dL before meals <180 mg/dL all other times of the day Blood specimen (specimen) 04/09/2020 11:22 AM EDT 04/09/2020 11:22 AM EDT Reyes Aguilar MD POINT OF CARE TEST O RDERABLES Performing Organization Address [facility] Co de Phone Number [facility] [place] [address] * Potassium (04/09/2020 11:16 AM EDT) Potassium 4.2 3.5 - 5.0 mmol/L [facility] Comment: Please note: ??Patients with WBC >100,000 may have falsely elevated Potassium levels. ??For accurate Potassium quantification in these patients send serum separator tube (gold top) for subsequent determinations. ??Contact the Clinical Chemistry Laboratory if there are any questions. Blood specimen (specimen) 04/09/2020 11:16 AM EDT 04/09/2020 11:37 AM EDT Narrative Resulting Agency Comment Spec In Lab Theodore Watson APRN CHEMISTRY ORDERABLES Performing Organization Address [facility]/ZIP Co de Phone Number [facility] [place] [address] * (ABNORMAL) POCT Glucose (04/09/2020 9:31 AM EDT) POC Glucose 224(H) 65 - 199 mg/dL [facility] Comment: Supplemental ranges: <140 mg/dL before meals <180 mg/dL all other times of the day Blood specimen (specimen) 04/09/2020 9:31 AM EDT 04/09/2020 9:31 AM EDT Reyes Aguilar MD POINT OF CARE TEST O RDERABLES Performing Organization Address [facility] Co de Phone Number [facility] [place] [address] * POCT Glucose (04/09/2020 4:32 AM EDT) POC Glucose 190 65 - 199 mg/dL [facility] Comment: Supplemental ranges: <140 mg/dL before meals <180 mg/dL all other times of the day Blood specimen (specimen) 04/09/2020 4:32 AM EDT 04/09/2020 4:32 AM EDT Reyes Aguilar MD POINT OF CARE TEST O RDERABLES Performing Organization Address [facility] Co de Phone Number [facility] [place] [address] * Scan, Peripheral Blood (04/09/2020 4:30 AM EDT) Plat Estimate Normal [facility] RBC Morphology Abnormal [facility] Hypochromia Slight [facility] Polychromasia Present >5/HPF [facility] Blood specimen (specimen) 04/09/2020 4:30 AM EDT 04/09/2020 4:40 AM EDT Narrative Resulting Agency Comment Spec In Lab Heavenly L Magana PROTECTIVE SIGNAL REPAIRER HEMATOLOGY ORDERAB LES Performing Organization Address City/[facility]/ZIP Co de Phone Number [facility] [place] [address] * (ABNORMAL) Differential, Automated (04/09/2020 4:30 AM EDT) Neutrophils % 64.0 % [facility] Neutr Abs (ANC) 9.61(H) 1.70 - 6.10 x10(3)/[facility] LABOR[facility] Lymphocytes % 23.5 % [facility] Lymphocytes Abs 3.5(H) 0.9 - 3.2 x10(3)/[facility] LABOR[facility]ORY Monocytes % 10.2 % [facility] Monocyte Abs 1.5(H) 0.3 - 0.9 x10(3)/[facility] LABOR[facility]ORY Eosinophils % 0.7 % [facility] Eosinophils Abs 0.1 0.0 - 0.4 x10(3)/[facility] LABOR[facility]ORY Basophils % 0.6 % [facility] Basophils Abs 0.1 0.0 - 0.1 x10(3)/[facility] LABOR[facility]ORY Immature Gran % 1.00 % [facility] Comment: Immature granulocytes(IG's)percentage and absolute count will include metamyelocytes, myelocytes, and promyelocytes. Blood smears from CBCs yielding IG's will be scanned manually for concordance. If this scan disagrees with the automated IG or if promyelocytes are noted, a manual differential will be performed. Anya Gran Abs 0.15(H) 0.00 - 0.04 x10(3)/[facility] LAB[facility]ORY Blood specimen (specimen) 04/09/2020 4:30 AM EDT 04/09/2020 4:40 AM EDT Narrative Resulting Agency Comment Spec In Lab Heavenly Magana PROTECTIVE SIGNAL REPAIRER HEMATOLOGY ORDERAB LES Performing Organization Address City/[facility]/ZIP Co de Phone Number [facility] [place] [address] * (ABNORMAL) Hemogram (04/09/2020 4:30 AM EDT) WBC 15.0(H) 4.0 - 9.5 x10(3)/[facility] [facility] RBC 3.80(L) 4.00 - 5.21 x10(6)/[facility] Hemoglobin 10.5(L) 11.7 - 15.5 gm/dL [facility] Hematocrit 32.3(L) 35.7 - 45.8 % [facility] MCV 85.0 82.6 - 94.4 fL [facility] MCH 27.6 27.1 - 32.0 pg [facility] MCHC 32.5 31.7 - 35.0 gm/dL [facility] Platelets 232 145 - 357 x10(3)/[facility] RDWSD 49.9(H) 37.0 - 46.0 [facility] LABORATORY RDWCV 17.5(H) 11.5 - 14.1 % [facility] MPV 11.4 7.6 - 12.9 [facility] nRBC % Auto 0.0 % [facility] nRBC Abs Auto 0.000 0.000 - 0.000 x10(3)/[facility] Blood specimen (specimen) 04/09/2020 4:30 AM EDT 04/09/2020 4:40 AM EDT Narrative Resulting Agency Comment Spec In Lab Heavenly Magana PROTECTIVE SIGNAL REPAIRER HEMATOLOGY ORDERAB LES [facility] [place] [address] * Phosphorus (04/09/2020 4:30 AM EDT) Phosphorus 2.6 2.5 - 4.5 mg/dL [facility] Blood specimen (specimen) 04/09/2020 4:30 AM EDT 04/09/2020 4:40 AM EDT Narrative Resulting Agency Comment Spec In Lab Lila Bryant KURTIS CHEMISTRY ORDERABLES Performing Organization Address [facility] Co de Phone Number [facility] [place] [address] * Magnesium (04/09/2020 4:30 AM EDT) [facility] Magnesium 0.91 0.69 - 1.07 mmol/L [facility] Blood specimen (specimen) 04/09/2020 4:30 AM EDT 04/09/2020 4:40 AM EDT Narrative Resulting Agency Comment Spec In Lab Lila Bryant KURTIS CHEMISTRY ORDERABLES Performing Organization Address [facility] Co de Phone Number [facility] [place] [address] * (ABNORMAL) Basic Metabolic Panel (non-fasting) (04/09/2020 4:30 AM EDT) [facility] Glucose Lvl 195 65 - 199 mg/dL [facility] Comment:Diabetes: >=200 mg/d L plus symptoms BUN 22(H) 8 - 18 mg/dL [facility] Creatinine 1.21(H) 0.70 - 1.20 mg/dL [facility] Sodium 138 135 - 145 mmol/L [facility] Potassium 3.7 3.5 - 5.0 mmol/L [facility] Comment: Please note: ??Patients with WBC >100,000 may have falsely elevated Potassium levels. ??For accurate Potassium quantification in these patients send serum separator tube (gold top) for subsequent determinations. ??Contact the Clinical Chemistry Laboratory if there are any questions. Chloride 99 98 - 107 mmol/L [facility] CO2 24 22 - 31 mmol/L [facility] Anion Gap 15 5 - 15 mmol/L [facility] Calcium 9.8 8.5 - 10.5 mg/dL [facility] Estimated GFR 47(L) >=60 mL/min/1. 73 m?? [facility] Comment: The eGFR was calculated using the CKD-EPI equation. As with all creatinine based estimates of kidney function, eGFR values calculated with the CKD-EPI equation are not accurate in patients with acute kidney failure, extremes of body mass or the acutely ill. [email or web address] eGFR 54(L) >=60 mL/min/1. 73 m?? [facility] Comment: The eGFR was calculated using the CKD-EPI equation. As with all creatinine based estimates of kidney function, eGFR values calculated with the CKD-EPI equation are not accurate in patients with acute kidney failure, extremes of body mass or the acutely ill. [email or web address] Blood specimen (specimen) 04/09/2020 4:30 AM EDT 04/09/2020 4:40 AM EDT Narrative Resulting Agency Comment Spec In Lab Lila Bryant APRN CHEMISTRY ORDERABLES Performing Organization Address [facility]/ZIP Co de Phone Number [facility] [place] [address] * (ABNORMAL) POCT Glucose (04/09/2020 12:07 AM EDT) POC Glucose 215(H) 65 - 199 mg/dL [facility] Comment: Supplemental ranges: <140 mg/dL before meals <180 mg/dL all other times of the day Blood specimen (specimen) 04/09/2020 12:07 AM EDT 04/09/2020 12:07 AM EDT Reyes Aguilar MD POINT OF CARE TEST O RDERABLES Performing Organization Address City/[facility]/ZIP Co de Phone Number [facility] [place] [address] * POCT Glucose (04/08/2020 7:55 PM EDT) POC Glucose 181 65 - 199 mg/dL [facility] Comment: Supplemental ranges: <140 mg/dL before meals <180 mg/dL all other times of the day Blood specimen (specimen) 04/08/2020 7:55 PM EDT 04/08/2020 7:55 PM EDT Reyes Aguilar MD POINT OF CARE TEST O RDWILLIAM Performing Organization Address [facility] Co de Phone Number [facility] [place] [address] * Potassium (04/08/2020 3:45 PM EDT) Potassium 3.8 3.5 - 5.0 mmol/L [facility] Comment: Please note: ??Patients with WBC >100,000 may have falsely elevated Potassium levels. ??For accurate Potassium quantification in these patients send serum separator tube (gold top) for subsequent determinations. ??Contact the Clinical Chemistry Laboratory if there are any questions. Blood specimen (specimen) 04/08/2020 3:45 PM EDT 04/08/2020 4:16 PM EDT Narrative Resulting Agency Comment Spec In Lab Theodore Watson APRN CHEMISTRY ORDERABLES Performing Organization Address [facility] Phone Number [facility] [place] [address] * POCT Glucose (04/08/2020 3:43 PM EDT) POC Glucose 183 65 - 199 mg/dL [facility] Comment: Supplemental ranges: <140 mg/dL before meals <180 mg/dL all other times of the day Blood specimen (specimen) 04/08/2020 3:43 PM EDT 04/08/2020 3:43 PM EDT Reyes Aguilar MD POINT OF CARE TEST O MAUREEN Performing Organization Address [facility] Co de Phone Number [facility] [place] [address] * EKG 12 Lead (04/08/2020 12:39 PM EDT) Ventricular rate 125 BPM MUSE SYSTEM Atrial Rate 125 BPM MUSE SYSTEM P-R Interval 192 ms MUSE SYSTEM QRS Duration 80 ms MUSE SYSTEM Q-T Interval 360 ms MUSE SYSTEM QTC Calculated (Bezet) 519 ms MUSE SYSTEM Calculated P [place] 114 degrees MUSE SYSTEM Calculated R [place] 70 degrees MUSE SYSTEM Calculated T [place] 47 degrees MUSE SYSTEM INTERPRETATION Sinus tachycardia Otherwise normal ECG When compared with ECG of 08-APR-2020 08:40, Vent. rate has increased BY ??44 BPM Confirmed by Debbi Zimmer (Vivienne) on 04/08/2020 4:36:12 PM MUSE SYSTEM 04/08/2020 12:3 9 PM EDT 04/08/2020 4:36 PM EDT Sean Bae APRN ECG ORDERABLES Performing Organization Address City/[facility]/ZIP Co de Phone Number MUSE SYSTEM * POCT Glucose (04/08/2020 11:40 AM EDT) Pathologist [facility] POC Glucose 92 65 - 199 mg/dL [facility] Comment: Supplemental ranges: <140 mg/dL before meals <180 mg/dL all other times of the day Blood specimen (specimen) 04/08/2020 11:40 AM EDT 04/08/2020 11:40 AM EDT Reyes Aguilar MD POINT OF CARE TEST O RDERABLES [facility] [place] [address] * EKG 12 Lead (04/08/2020 8:40 AM EDT) Pathologist [facility] Ventricular rate 81 BPM MUSE SYSTEM Atrial Rate 81 BPM MUSE SYSTEM P-R Interval 192 ms MUSE SYSTEM QRS Duration 82 ms MUSE SYSTEM Q-T Interval 398 ms MUSE SYSTEM QTC Calculated (Bezet) 462 ms MUSE SYSTEM Calculated P [place] 52 degrees MUSE SYSTEM Calculated R [place] 47 degrees MUSE SYSTEM Calculated T [place] 59 degrees MUSE SYSTEM INTERPRETATION Normal sinus rhythm Normal ECG When compared with ECG of 05-APR-2020 15:44, Criteria for Septal infarct are no longer Present Confirmed by Debbi Zimmer ([id number]) on 04/08/2020 4:35:52 PM MUSE SYSTEM 04/08/2020 8:40 AM EDT 04/08/2020 4:35 PM EDT Rebecca Agarwal KURTIS ECG ORDERABLES MUSE SYSTEM * POCT Glucose (04/08/2020 7:48 AM EDT) POC Glucose 193 65 - 199 mg/dL [facility] Comment: Supplemental ranges: <140 mg/dL before meals <180 mg/dL all other times of the day Blood specimen (specimen) 04/08/2020 7:48 AM EDT 04/08/2020 7:48 AM EDT Yann Franco MD POINT OF CARE TEST O RDERABLES Performing Organization Address [facility] Co de Phone Number [facility] [place] [address] * POCT Glucose (04/08/2020 4:00 AM EDT) POC Glucose 171 65 - 199 mg/dL [facility] Comment: Supplemental ranges: <140 mg/dL before meals <180 mg/dL all other times of the day Blood specimen (specimen) 04/08/2020 4:00 AM EDT 04/08/2020 4:00 AM EDT Yann Farnco MD POINT OF CARE TEST O RDERABLES Performing Organization Address [facility] Co de Phone Number [facility] [place] [address] * (ABNORMAL) Differential, Automated (04/08/2020 3:05 AM EDT) Neutrophils % 66.1 % [facility] Neutr Abs (ANC) 5.87 1.70 - 6.10 x10(3)/mc L [facility] Lymphocytes % 23.6 % [facility] Lymphocytes Abs 2.1 0.9 - 3.2 x10(3)/[facility] LABORATORY Monocytes % 7.5 % [facility] Monocyte Abs 0.7 0.3 - 0.9 x10(3)/[facility] LABORATORY Eosinophils % 1.8 % [facility] Eosinophils Abs 0.2 0.0 - 0.4 x10(3)/[facility] LABORATORY Basophils % 0.3 % [facility] Basophils Abs 0.0 0.0 - 0.1 x10(3)/[facility] LABORATORY Immature Gran % 0.70 % [facility] Comment: Immature granulocytes(IG's)percentage and absolute count will include metamyelocytes, myelocytes, and promyelocytes. Blood smears from CBCs yielding IG's will be scanned manually for concordance. If this scan disagrees with the automated IG or if promyelocytes are noted, a manual differential will be performed. Anya Gran Abs 0.06(H) 0.00 - 0.04 x10(3)/[facility] LABORATORY Blood specimen (specimen) 04/08/2020 3:05 AM EDT 04/08/2020 3:12 AM EDT Narrative Resulting Agency Comment Spec In Lab Heavenly Magana PROTECTIVE SIGNAL REPAIRER HEMATOLOGY ORDERAB LES Performing Organization Address City/State/[facility] Co de Phone Number [facility] [place] [address] * (ABNORMAL) Hemogram (04/08/2020 3:05 AM EDT) WBC 8.9 4.0 - 9.5 x10(3)/[facility] RBC 3.30(L) 4.00 - 5.21 x10(6)/[facility] Hemoglobin 9.1(L) 11.7 - 15.5 gm/dL [facility] Hematocrit 27.8(L) 35.7 - 45.8 % [facility] MCV 84.2 82.6 - 94.4 [facility]ATORY MCH 27.6 27.1 - 32.0 pg [facility] MCHC 32.7 31.7 - 35.0 gm/dL [facility] Platelets 174 145 - 357 x10(3)/[facility] RDWSD 47.7(H) 37.0 - 46.0 [facility] RDWCV 16.6(H) 11.5 - 14.1 % [facility] MPV 11.4 7.6 - 12.9 [facility] nRBC % Auto 0.0 % [facility] nRBC Abs Auto 0.000 0.000 - 0.000 x10(3)/[facility] Blood specimen (specimen) 04/08/2020 3:05 AM EDT 04/08/2020 3:12 AM EDT Narrative Resulting Agency Comment Spec In Lab Heavenlyyohan Magana PROTECTIVE SIGNAL REPAIRER HEMATOLOGY ORDERAB LES [facility] [place] [address] * (ABNORMAL) Phosphorus (04/08/2020 3:05 AM EDT) Phosphorus 2.3(L) 2.5 - 4.5 mg/dL [facility] Blood specimen (specimen) 04/08/2020 3:05 AM EDT 04/08/2020 3:12 AM EDT Narrative Resulting Agency Comment Spec In Lab Lila Bryant PROTECTIVE SIGNAL REPAIRER CHEMISTRY ORDERABLES [facility] [place] [address] * Magnesium (04/08/2020 3:05 AM EDT) Magnesium 0.77 0.69 - 1.07 mmol/L [facility] Blood specimen (specimen) 04/08/2020 3:05 AM EDT 04/08/2020 3:12 AM EDT Narrative Resulting Agency Comment Spec In Lab Lila Bryant KURTIS CHEMISTRY ORDERABLES [facility] [place] [address] * (ABNORMAL) Basic Metabolic Panel (non-fasting) (04/08/2020 3:05 AM EDT) Glucose Lvl 132 65 - 199 mg/dL [facility] Comment:Diabetes: >=200 mg/d L plus symptoms BUN 26(H) 8 - 18 mg/dL [facility] Creatinine 1.18 0.70 - 1.20 mg/dL [facility] Sodium 142 135 - 145 mmol/L [facility] Potassium 3.8 3.5 - 5.0 mmol/L [facility] Comment: Please note: ??Patients with WBC >100,000 may have falsely elevated Potassium levels. ??For accurate Potassium quantification in these patients send serum separator tube (gold top) for subsequent determinations. ??Contact the Clinical Chemistry Laboratory if there are any questions. Chloride 106 98 - 107 mmol/L [facility] CO2 27 22 - 31 mmol/L [facility] Anion Gap 9 5 - 15 mmol/L [facility] Calcium 9.2 8.5 - 10.5 mg/dL [facility] Estimated GFR 48(L) >=60 mL/min/1. 73 m?? [facility] Comment: The eGFR was calculated using the CKD-EPI equation. As with all creatinine based estimates of kidney function, eGFR values calculated with the CKD-EPI equation are not accurate in patients with acute kidney failure, extremes of body mass or the acutely ill. [email or web address] eGFR 56(L) >=60 mL/min/1. 73 m?? [facility] Comment: The eGFR was calculated using the CKD-EPI equation. As with all creatinine based estimates of kidney function, eGFR values calculated with the CKD-EPI equation are not accurate in patients with acute kidney failure, extremes of body mass or the acutely ill. [email or web address] Blood specimen (specimen) 04/08/2020 3:05 AM EDT 04/08/2020 3:12 AM EDT Narrative Resulting Agency Comment Spec In Lab Lila Bryant PROTECTIVE SIGNAL REPAIRER CHEMISTRY ORDERABLES Performing Organization Address [facility] Co de Phone Number [facility] [place] [address] * POCT Glucose (04/08/2020 12:07 AM EDT) POC Glucose 158 65 - 199 mg/dL [facility] Comment: Supplemental ranges: <140 mg/dL before meals <180 mg/dL all other times of the day Blood specimen (specimen) 04/08/2020 12:07 AM EDT 04/08/2020 12:07 AM EDT Yann Franco MD POINT OF CARE TEST O RDERABLES Performing Organization Address [facility] Co de Phone Number [facility] [place] [address] * Potassium (04/07/2020 9:40 PM EDT) Potassium 4.2 3.5 - 5.0 mmol/L [facility] Comment: Please note: ??Patients with WBC >100,000 may have falsely elevated Potassium levels. ??For accurate Potassium quantification in these patients send serum separator tube (gold top) for subsequent determinations. ??Contact the Clinical Chemistry Laboratory if there are any questions. Blood specimen (specimen) 04/07/2020 9:40 PM EDT 04/07/2020 9:48 PM EDT Narrative Resulting Agency Comment Spec In Lab Theodore Watson PROTECTIVE SIGNAL REPAIRER CHEMISTRY ORDERABLES Performing Organization Address [facility] Co de Phone Number [facility] [place] [address] * POCT Glucose (04/07/2020 7:40 PM EDT) POC Glucose 111 65 - 199 mg/dL [facility] Comment: Supplemental ranges: <140 mg/dL before meals <180 mg/dL all other times of the day Blood specimen (specimen) 04/07/2020 7:40 PM EDT 04/07/2020 7:40 PM EDT Yann Franco MD POINT OF CARE TEST O MAUREEN Performing Organization Address [facility] Co de Phone Number [facility] [place] [address] * Potassium (04/07/2020 4:26 PM EDT) Potassium 3.7 3.5 - 5.0 mmol/L [facility] Comment: Please note: ??Patients with WBC >100,000 may have falsely elevated Potassium levels. ??For accurate Potassium quantification in these patients send serum separator tube (gold top) for subsequent determinations. ??Contact the Clinical Chemistry Laboratory if there are any questions. Blood specimen (specimen) 04/07/2020 4:26 PM EDT 04/07/2020 4:35 PM EDT Narrative Resulting Agency Comment Spec In Lab Theodore Watson APRN CHEMISTRY ORDERABLES Performing Organization Address [facility] Co de Phone Number [facility] [place] [address] * POCT Glucose (04/07/2020 4:25 PM EDT) POC Glucose 171 65 - 199 mg/dL [facility] Comment: Supplemental ranges: <140 mg/dL before meals <180 mg/dL all other times of the day Blood specimen (specimen) 04/07/2020 4:25 PM EDT 04/07/2020 4:25 PM EDT Yann Franco MD POINT OF CARE TEST O RDERABLES Performing Organization Address [facility] de Phone Number [facility] [place] [address] * POCT Glucose (04/07/2020 12:11 PM EDT) POC Glucose 181 65 - 199 mg/dL [facility] Comment: Supplemental ranges: <140 mg/dL before meals <180 mg/dL all other times of the day Blood specimen (specimen) 04/07/2020 12:11 PM EDT 04/07/2020 12:11 PM EDT Yann Franco MD POINT OF CARE TEST O RDERABLES Performing Organization Address [facility] de Phone Number [facility] [place] [address] * Potassium (04/07/2020 9:57 AM EDT) Potassium 3.5 3.5 - 5.0 mmol/L [facility] Comment: Please note: ??Patients with WBC >100,000 may have falsely elevated Potassium levels. ??For accurate Potassium quantification in these patients send serum separator tube (gold top) for subsequent determinations. ??Contact the Clinical Chemistry Laboratory if there are any questions. Blood specimen (specimen) 04/07/2020 9:57 AM EDT 04/07/2020 10:43 AM EDT Narrative Resulting Agency Comment Spec In Lab Theodore Watson APRN CHEMISTRY ORDERABLES Performing Organization Address [facility] Co de Phone Number [facility] [place] [address] * POCT Glucose (04/07/2020 7:51 AM EDT) POC Glucose 147 65 - 199 mg/dL [facility] Comment: Supplemental ranges: <140 mg/dL before meals <180 mg/dL all other times of the day Blood specimen (specimen) 04/07/2020 7:51 AM EDT 04/07/2020 7:51 AM EDT Yann Franco MD POINT OF CARE TEST O MAUREEN Performing Organization Address [facility] Co de Phone Number [facility] [place] [address] * POCT Glucose (04/07/2020 3:55 AM EDT) POC Glucose 157 65 - 199 mg/dL [facility] Comment: Supplemental ranges: <140 mg/dL before meals <180 mg/dL all other times of the day Blood specimen (specimen) 04/07/2020 3:55 AM EDT 04/07/2020 3:55 AM EDT Yann Franco MD POINT OF CARE TEST O MAUREEN Performing Organization Address [facility] Co de Phone Number [facility] [place] [address] * (ABNORMAL) Potassium (04/07/2020 3:50 AM EDT) Pathologist [facility] Potassium 3.2(L) 3.5 - 5.0 mmol/L [facility] Comment: Please note: ??Patients with WBC >100,000 may have falsely elevated Potassium levels. ??For accurate Potassium quantification in these patients send serum separator tube (gold top) for subsequent determinations. ??Contact the Clinical Chemistry Laboratory if there are any questions. Blood specimen (specimen) 04/07/2020 3:50 AM EDT 04/07/2020 3:54 AM EDT Narrative Resulting Agency Comment Spec In Lab Yann Franco MD CHEMISTRY ORDERABLES Performing Organization Address [facility] Co de Phone Number [facility] [place] [address] * (ABNORMAL) Differential, Automated (04/07/2020 12:56 AM EDT) Neutrophils % 70.0 % [facility] Neutr Abs (ANC) 6.53(H) 1.70 - 6.10 x10(3)/mc L [facility] Lymphocytes % 20.5 % [facility] Lymphocytes Abs 1.9 0.9 - 3.2 x10(3)/[facility] LABORATORY Monocytes % 6.9 % [facility] Monocyte Abs 0.6 0.3 - 0.9 x10(3)/[facility] LABORATORY Eosinophils % 1.3 % [facility] Eosinophils Abs 0.1 0.0 - 0.4 x10(3)/[facility] LABORATORY Basophils % 0.5 % [facility] Basophils Abs 0.0 0.0 - 0.1 x10(3)/[facility] LABORATORY Immature Gran % 0.80 % [facility] Comment: Immature granulocytes(IG's)percentage and absolute count will include metamyelocytes, myelocytes, and promyelocytes. Blood smears from CBCs yielding IG's will be scanned manually for concordance. If this scan disagrees with the automated IG or if promyelocytes are noted, a manual differential will be performed. Anya Gran Abs 0.07(H) 0.00 - 0.04 x10(3)/[facility] LABORATORY Blood specimen (specimen) 04/07/2020 12:56 AM EDT 04/07/2020 1:00 AM EDT Narrative Resulting Agency Comment Spec In Lab Heavenly Magana PROTECTIVE SIGNAL REPAIRER HEMATOLOGY ORDERAB LES Performing Organization Address City/State/[facility] Co de Phone Number [facility] [place] [address] * (ABNORMAL) Hemogram (04/07/2020 12:56 AM EDT) WBC 9.3 4.0 - 9.5 x10(3)/[facility] LABORATORY RBC 3.58(L) 4.00 - 5.21 x10(6)/[facility] Hemoglobin 9.7(L) 11.7 - 15.5 gm/dL [facility] Hematocrit 29.8(L) 35.7 - 45.8 % [facility] MCV 83.2 82.6 - 94.4 fL [facility] MCH 27.1 27.1 - 32.0 pg [facility] MCHC 32.6 31.7 - 35.0 gm/dL [facility] Platelets 149 145 - 357 x10(3)/[facility]AT[facility] RDWSD 45.7 37.0 - 46.0 fL [facility] RDWCV 15.9(H) 11.5 - 14.1 % [facility] MPV 11.8 7.6 - 12.9 fL [facility] nRBC % Auto 0.0 % [facility] nRBC Abs Auto 0.000 0.000 - 0.000 x10(3)/[facility] Blood specimen (specimen) 04/07/2020 12:56 AM EDT 04/07/2020 1:00 AM EDT Narrative Resulting Agency Comment Spec In Lab Heavenly Alberto Magana PROTECTIVE SIGNAL REPAIRER HEMATOLOGY ORDERAB LES Performing Organization Address City/[facility]/ZIP Co de Phone Number [facility] [place] [address] * Phosphorus (04/07/2020 12:56 AM EDT) Phosphorus 2.7 2.5 - 4.5 mg/dL [facility] Blood specimen (specimen) 04/07/2020 12:56 AM EDT 04/07/2020 1:00 AM EDT Narrative Resulting Agency Comment Spec In Lab Lila Bryant PROTECTIVE SIGNAL REPAIRER CHEMISTRY ORDERABLES Performing Organization Address City/[facility]/ZIP Co de Phone Number [facility] [place] [address] * Magnesium (04/07/2020 12:56 AM EDT) Magnesium 0.73 0.69 - 1.07 mmol/L [facility] Blood specimen (specimen) 04/07/2020 12:56 AM EDT 04/07/2020 1:00 AM EDT Narrative Resulting Agency Comment Spec In Lab Lila Bryant APRN CHEMISTRY ORDERABLES [facility] [place] [address] * (ABNORMAL) Basic Metabolic Panel (non-fasting) (04/07/2020 12:56 AM EDT) Glucose Lvl 165 65 - 199 mg/dL [facility] Comment:Diabetes: >=200 mg/d L plus symptoms BUN 20(H) 8 - 18 mg/dL [facility] Creatinine 1.14 0.70 - 1.20 mg/dL [facility] Sodium 140 135 - 145 mmol/L [facility] Comment:result rechecked-emmanuel Potassium Not Perf 3.5 - 5.0 [facility] Comment: Unable to quantitate due to sample hemolysis. ??Sample redraw suggested. Called by: emmanuel, Read back by: Lisa Saravia, Date/Time:04/07/20 01:33. Please note: ??Patients with WBC >100,000 may have falsely elevated Potassium levels. ??For accurate Potassium quantification in these patients send serum separator tube (gold top) for subsequent determinations. ??Contact the Clinical Chemistry Laboratory if there are any questions. Chloride 105 98 - 107 mmol/L [facility] Comment:result rechecked-emmanuel CO2 23 22 - 31 mmol/L [facility] Anion Gap 12 5 - 15 mmol/L [facility] Calcium 9.2 8.5 - 10.5 mg/dL [facility] Estimated GFR 50(L) >=60 mL/min/1. 73 m?? [facility] Comment: The eGFR was calculated using the CKD-EPI equation. As with all creatinine based estimates of kidney function, eGFR values calculated with the CKD-EPI equation are not accurate in patients with acute kidney failure, extremes of body mass or the acutely ill. [email or web address] eGFR 58(L) >=60 mL/min/1. 73 m?? [facility] Comment: The eGFR was calculated using the CKD-EPI equation. As with all creatinine based estimates of kidney function, eGFR values calculated with the CKD-EPI equation are not accurate in patients with acute kidney failure, extremes of body mass or the acutely ill. [email or web address] Blood specimen (specimen) 04/07/2020 12:56 AM EDT 04/07/2020 1:00 AM EDT Narrative Resulting Agency Comment Spec In Lab Lila Bryant APRN CHEMISTRY ORDERABLES Performing Organization Address [facility] Co de Phone Number [facility] [place] [address] * POCT Glucose (04/07/2020 12:04 AM EDT) POC Glucose 138 65 - 199 mg/dL [facility] Comment: Supplemental ranges: <140 mg/dL before meals <180 mg/dL all other times of the day Blood specimen (specimen) 04/07/2020 12:04 AM EDT 04/07/2020 12:04 AM EDT Yann Franco MD POINT OF CARE TEST O MAUREEN Performing Organization Address City/[facility]/ZIP Co de Phone Number [facility] [place] [address] * POCT Glucose (04/06/2020 8:16 PM EDT) POC Glucose 165 65 - 199 mg/dL [facility] Comment: Supplemental ranges: <140 mg/dL before meals <180 mg/dL all other times of the day Blood specimen (specimen) 04/06/2020 8:16 PM EDT 04/06/2020 8:16 PM EDT Yann Franco MD POINT OF CARE TEST O MAUREEN Performing Organization Address [facility] de Phone Number [facility] [place] [address] * POCT Glucose (04/06/2020 3:49 PM EDT) POC Glucose 130 65 - 199 mg/dL [facility] Comment: Supplemental ranges: <140 mg/dL before meals <180 mg/dL all other times of the day Blood specimen (specimen) 04/06/2020 3:49 PM EDT 04/06/2020 3:49 PM EDT Yann Franco MD POINT OF CARE TEST Scar REDDY Performing Organization Address [facility] de Phone Number [facility] [place] [address] * POCT Glucose (04/06/2020 12:04 PM EDT) POC Glucose 147 65 - 199 mg/dL [facility] Comment: Supplemental ranges: <140 mg/dL before meals <180 mg/dL all other times of the day Blood specimen (specimen) 04/06/2020 12:04 PM EDT 04/06/2020 12:04 PM EDT Yann Franco MD POINT OF CARE TEST Scar REDDY Performing Organization Address [facility] de Phone Number [facility] [place] [address] * XR Abdomen 1 view (Generic) (04/06/2020 10:59 AM EDT) Anatomical Region Laterality Modality Abdomen N/A Digital Radiogra phy Impressions 04/06/2020 11:15 AM EDT Relative paucity of bowel gas. There is a Dobbhoff tube with tip projecting over the distal stomach. Left lower lobe atelectasis. Thank you for letting us participate in the care of this patient. For questions regarding this report, please contact the number below. ? Narrative 04/06/2020 11:15 AM EDT EXAMINATION: XR ABDOMEN 1 VIEW (GENERIC) CLINICAL HISTORY: DHT placement TECHNIQUE: AP view of the abdomen COMPARISON: None Procedure Note Navid Boucher MD - 04/06/2020 EXAMINATION: XR ABDOMEN 1 VIEW (GENERIC) CLINICAL HISTORY: DHT placement TECHNIQUE: AP view of the abdomen COMPARISON: None IMPRESSION Relative paucity of bowel gas. There is a Dobbhoff tube with tipprojecting over the distal stomach. Left lower lobe atelectasis. Thank you for letting us participate in the care of this patient. Forquestions regarding this report, please contact the number below. Electronically signed by: Navid Boucher [facility] ([phone]),at 04/06/2020 11:15 AM Rebecca Agarwal APRN IMG DX ORDERABLES * POCT Glucose (04/06/2020 7:51 AM EDT) [facility] POC Glucose 89 65 - 199 mg/dL [facility] Comment: Supplemental ranges: <140 mg/dL before meals <180 mg/dL all other times of the day Blood specimen (specimen) 04/06/2020 7:51 AM EDT 04/06/2020 7:51 AM EDT Yann Franco MD POINT OF CARE TEST O RDERABLES [facility] [place] [address] * POCT Glucose (04/06/2020 3:58 AM EDT) Pathologist [facility] POC Glucose 152 65 - 199 mg/dL [facility] Comment: Supplemental ranges: <140 mg/dL before meals <180 mg/dL all other times of the day Blood specimen (specimen) 04/06/2020 3:58 AM EDT 04/06/2020 3:58 AM EDT Yann Franco MD POINT OF CARE TEST O RDERABLES Performing Organization Address [facility] Co de Phone Number [facility] [place] [address] * Potassium (04/06/2020 2:15 AM EDT) [facility] Potassium 3.8 3.5 - 5.0 mmol/L [facility] Comment: Please note: ??Patients with WBC >100,000 may have falsely elevated Potassium levels. ??For accurate Potassium quantification in these patients send serum separator tube (gold top) for subsequent determinations. ??Contact the Clinical Chemistry Laboratory if there are any questions. Blood specimen (specimen) 04/06/2020 2:15 AM EDT 04/06/2020 2:31 AM EDT Narrative Resulting Agency Comment Spec In Lab Yann Franco MD CHEMISTRY ORDERABLES Performing Organization Address [facility] Co de Phone Number [facility] [place] [address] * (ABNORMAL) Differential, Automated (04/06/2020 12:25 AM EDT) [facility] Neutrophils % 76.0 % [facility] Neutr Abs (ANC) 8.72(H) 1.70 - 6.10 x10(3)/mc L [facility] Lymphocytes % 15.9 % [facility] Lymphocytes Abs 1.8 0.9 - 3.2 x10(3)/mc L [facility] Monocytes % 6.4 % [facility] Monocyte Abs 0.7 0.3 - 0.9 x10(3)/mc L [facility] Eosinophils % 0.6 % [facility] Eosinophils Abs 0.1 0.0 - 0.4 x10(3)/[facility] Basophils % 0.3 % [facility] Basophils Abs 0.0 0.0 - 0.1 x10(3)/[facility] LABORATORY Immature Gran % 0.80 % [facility] Comment: Immature granulocytes(IG's)percentage and absolute count will include metamyelocytes, myelocytes, and promyelocytes. Blood smears from CBCs yielding IG's will be scanned manually for concordance. If this scan disagrees with the automated IG or if promyelocytes are noted, a manual differential will be performed. Anya Gran Abs 0.09(H) 0.00 - 0.04 x10(3)/[facility] LAB[facility]ORY Blood specimen (specimen) 04/06/2020 12:25 AM EDT 04/06/2020 12:35 AM EDT Narrative Resulting Agency Comment Spec In Lab Heavenly Magana PROTECTIVE SIGNAL REPAIRER HEMATOLOGY ORDERAB LES [facility] [place] [address] * (ABNORMAL) Hemogram (04/06/2020 12:25 AM EDT) WBC 11.5(H) 4.0 - 9.5 x10(3)/[facility] LABORATORY RBC 3.51(L) 4.00 - 5.21 x10(6)/[facility] LAB[facility]AT[facility] Hemoglobin 9.5(L) 11.7 - 15.5 gm/dL [facility] Hematocrit 29.3(L) 35.7 - 45.8 % [facility] MCV 83.5 82.6 - 94.4 fL [facility] MCH 27.1 27.1 - 32.0 pg [facility] MCHC 32.4 31.7 - 35.0 gm/dL [facility] Platelets 158 145 - 357 x10(3)/[facility] LABORATORY RDWSD 47.2(H) 37.0 - 46.0 fL [facility] RDWCV 16.1(H) 11.5 - 14.1 % [facility] MPV 11.9 7.6 - 12.9 fL [facility] nRBC % Auto 0.0 % [facility] nRBC Abs Auto 0.000 0.000 - 0.000 x10(3)/[facility] LAB[facility] Blood specimen (specimen) 04/06/2020 12:25 AM EDT 04/06/2020 12:35 AM EDT Narrative Resulting Agency Comment Spec In Lab Heavenly Dominguez Magana PROTECTIVE SIGNAL REPAIRER HEMATOLOGY ORDERAB LES Performing Organization Address [facility]/ZIP Co de Phone Number [facility] [place] [address] * Phosphorus (04/06/2020 12:25 AM EDT) Phosphorus 3.2 2.5 - 4.5 mg/dL [facility] Blood specimen (specimen) 04/06/2020 12:25 AM EDT 04/06/2020 12:35 AM EDT Narrative Resulting Agency Comment Spec In Lab Lila Bryant PROTECTIVE SIGNAL REPAIRER CHEMISTRY ORDERABLES Performing Organization Address [facility]/ZIP Co de Phone Number [facility] [place] [address] * Magnesium (04/06/2020 12:25 AM EDT) Magnesium 0.75 0.69 - 1.07 mmol/L [facility] Blood specimen (specimen) 04/06/2020 12:25 AM EDT 04/06/2020 12:35 AM EDT Narrative Resulting Agency Comment Spec In Lab Lila Dominguez Bryant PROTECTIVE SIGNAL REPAIRER CHEMISTRY ORDERABLES Performing Organization Address [facility]/ZIP Co de Phone Number [facility] [place] [address] * (ABNORMAL) Basic Metabolic Panel (non-fasting) (04/06/2020 12:25 AM EDT) Glucose Lvl 79 65 - 199 mg/dL [facility] Comment:Diabetes: >=200 mg/d L plus symptoms BUN 14 8 - 18 mg/dL [facility] Creatinine 1.22(H) 0.70 - 1.20 mg/dL [facility] Sodium 141 135 - 145 mmol/L [facility] Potassium Not Perf 3.5 - 5.0 [facility] Comment: Please note: ??Patients with WBC >100,000 may have falsely elevated Potassium levels. ??For accurate Potassium quantification in these patients send serum separator tube (gold top) for subsequent determinations. ??Contact the Clinical Chemistry Laboratory if there are any questions. Called by: audelia, Read back by: Gwen Solitario, Date/Time:04/06/20 01:23. Chloride 105 98 - 107 mmol/L [facility] CO2 23 22 - 31 mmol/L [facility] Anion Gap 13 5 - 15 mmol/L [facility] Calcium 8.9 8.5 - 10.5 mg/dL [facility] Comment:result rechecked-[facility] Estimated GFR 46(L) >=60 mL/min/1. 73 m?? [facility] Comment: The eGFR was calculated using the CKD-EPI equation. As with all creatinine based estimates of kidney function, eGFR values calculated with the CKD-EPI equation are not accurate in patients with acute kidney failure, extremes of body mass or the acutely ill. [email or web address] eGFR 53(L) >=60 mL/min/1. 73 m?? [facility] Comment: The eGFR was calculated using the CKD-EPI equation. As with all creatinine based estimates of kidney function, eGFR values calculated with the CKD-EPI equation are not accurate in patients with acute kidney failure, extremes of body mass or the acutely ill. [email or web address] Blood specimen (specimen) 04/06/2020 12:25 AM EDT 04/06/2020 12:35 AM EDT Narrative Resulting Agency Comment Spec In Lab Lila Bryant APRN CHEMISTRY ORDERABLES Performing Organization Address [facility] Co de Phone Number [facility] [place] [address] * POCT Glucose (04/06/2020 12:11 AM EDT) POC Glucose 73 65 - 199 mg/dL [facility] Comment: Supplemental ranges: <140 mg/dL before meals <180 mg/dL all other times of the day Blood specimen (specimen) 04/06/2020 12:11 AM EDT 04/06/2020 12:11 AM EDT Yann Franco MD POINT OF CARE TEST O RDERAMARIE Performing Organization Address [facility] Co de Phone Number [facility] [place] [address] * POCT Glucose (04/05/2020 7:57 PM EDT) POC Glucose 165 65 - 199 mg/dL [facility] Comment: Supplemental ranges: <140 mg/dL before meals <180 mg/dL all other times of the day Blood specimen (specimen) 04/05/2020 7:57 PM EDT 04/05/2020 7:57 PM EDT Yann Franco MD POINT OF CARE TEST O RDERAMARIE Performing Organization Address City/[facility] Co de Phone Number [facility] [place] [address] * Blood culture (04/05/2020 5:25 PM EDT) Blood Culture No growth at 5 days. [facility] Blood specimen (specimen) 04/05/2020 5:25 PM EDT 04/05/2020 6:07 PM EDT Comment:R HAND Narrative Resulting Agency Comment Spec In Lab Heavenly Magana PROTECTIVE SIGNAL REPAIRER MICROBIOLOGY - BLO OD ORDERABLES [facility] [place] [address] * COVID-19 PCR (04/05/2020 4:08 PM EDT) SARS-CoV-2 RNA PCR Not Detected Not Detected [facility] Comment: This result should [...] using the Simplexa COVID-19 Direct Assay by [employer] as authorized by the FDA issued Emergency [...] Department of Pathology and Laboratory Medicine at [facility], certified under the Clinical Laboratory [...] webpage under Information for Healthcare Professionals (https://www.cdc.gov/coronavirus/2019-ncov/hcp/index.html). SARS-CoV-2 Source [employer] [facility] Nasopharyngeal swab (specimen) 04/05/2020 4:08 PM EDT 04/05/2020 4:54 PM EDT Comment:Symptoms->Surveillan ce Narrative Resulting Agency Comment Spec In Lab Heavenlyyohan Magana APRN MICROBIOLOGY - GEN ERAL ORDERABLES Performing Organization Address [facility]/ZIP Co de Phone Number [facility] [place] [address] * Blood culture (04/05/2020 4:08 PM EDT) Blood Culture No growth at 5 days. [facility] Blood specimen (specimen) STRUCTURE OF RIGHT HAND / Unknown 04/05/2020 4:08 PM EDT 04/05/2020 4:58 PM EDT Narrative Resulting Agency Comment Spec In Lab Heavenly Dominguez [place] HULL MICROBIOLOGY - BLO OD ORDERABLES Performing Organization Address [facility] Co de Phone Number [facility] [place] [address] * (ABNORMAL) Urinalysis without microscopic (04/05/2020 3:47 PM EDT) Glucose UA Negative Negative mg/dL [facility] Protein UA 100(A) Negative mg/dL [facility] Bilirubin UA Negative Negative mg/dL [facility] Comment: Clinical correlation required for positive Urine Bilirubin results as false positive may occur with some drugs and drug related products. If a false positive is suspected a serum total bilirubin should be considered if clinically indicated. Urobilinogen UA Normal Normal mg/dL [facility] pH UA 6.0 5.0 - 8.0 [facility] Blood UA Large(A) Negative mg/dL [facility] Ketones UA Negative Negative mg/dL [facility] Nitrite UA Positive(A) Negative [facility] Leukocytes UA Moderate(A) Negative [facility] Appearance UA Turbid(A) Clear [facility] Spec Dille UA 1.017 1.006 - 1.030 [facility] Color UA Yellow Yellow [facility] Urine specimen (specimen) 04/05/2020 3:47 PM EDT 04/05/2020 4:13 PM EDT Narrative Resulting Agency Comment Spec In Lab Heavenly Alberto Magana APRN URINE ORDERABLES Performing Organization Address [facility]/ZIP Co de Phone Number [facility] [place] [address] * EKG 12 Lead (04/05/2020 3:44 PM EDT) Ventricular rate 74 BPM MUSE SYSTEM Atrial Rate 74 BPM MUSE SYSTEM P-R Interval 208 ms MUSE SYSTEM QRS Duration 90 ms MUSE SYSTEM Q-T Interval 412 ms MUSE SYSTEM QTC Calculated (Bezet) 457 ms MUSE SYSTEM Calculated P [place] 67 degrees MUSE SYSTEM Calculated R [place] 61 degrees MUSE SYSTEM Calculated T [place] 73 degrees MUSE SYSTEM INTERPRETATION Normal sinus rhythm Septal infarct , age undetermined Abnormal ECG No previous ECGs available Confirmed by MD Pinto Daniel ([id number]) on 04/06/2020 3:44:08 PM MUSE SYSTEM 04/05/2020 3:44 PM EDT 04/06/2020 3:44 PM EDT Heavenly Magana APRN ECG ORDERABLES MUSE SYSTEM * ABORH Recheck Status (04/05/2020 3:42 PM EDT) ABORH Recheck Order Order Placed [facility] ABORH Type Recheck Complete [facility] Blood specimen (specimen) 04/05/2020 3:42 PM EDT 04/05/2020 3:51 PM EDT Narrative Resulting Agency Comment Spec In Lab Heavenly Magana APRN BLOOD BANK LAB ORD ERABLES [facility] [place] [address] * (ABNORMAL) Differential, Automated (04/05/2020 3:42 PM EDT) Neutrophils % 75.7 % [facility] Neutr Abs (ANC) 6.77(H) 1.70 - 6.10 x10(3)/[facility] LABOR[facility]ORY Lymphocytes % 16.4 % [facility] Lymphocytes Abs 1.5 0.9 - 3.2 x10(3)/[facility] LABOR[facility]ORY Monocytes % 5.8 % [facility] Monocyte Abs 0.5 0.3 - 0.9 x10(3)/[facility] LAB[facility]ORY Eosinophils % 1.5 % [facility] Eosinophils Abs 0.1 0.0 - 0.4 x10(3)/[facility] LABOR[facility]ORY Basophils % 0.2 % [facility] Basophils Abs 0.0 0.0 - 0.1 x10(3)/[facility] LABOR[facility]ORY Immature Gran % 0.40 % [facility] Comment: Immature granulocytes(IG's)percentage and absolute count will include metamyelocytes, myelocytes, and promyelocytes. Blood smears from CBCs yielding IG's will be scanned manually for concordance. If this scan disagrees with the automated IG or if promyelocytes are noted, a manual differential will be performed. Anya Gran Abs 0.04 0.00 - 0.04 x10(3)/[facility] LAB[facility] Blood specimen (specimen) 04/05/2020 3:42 PM EDT 04/05/2020 4:01 PM EDT Narrative Resulting Agency Comment Spec In Lab Heavenly Magana APRN HEMATOLOGY ORDERAB LES [facility] [place] [address] * (ABNORMAL) Hemogram (04/05/2020 3:42 PM EDT) [facility] WBC 9.0 4.0 - 9.5 x10(3)/[facility] LABORATORY RBC 3.14(L) 4.00 - 5.21 x10(6)/[facility] Hemoglobin 8.5(L) 11.7 - 15.5 gm/dL [facility] Hematocrit 26.4(L) 35.7 - 45.8 % [facility] MCV 84.1 82.6 - 94.4 [facility] LABORATORY MCH 27.1 27.1 - 32.0 pg [facility] MCHC 32.2 31.7 - 35.0 gm/dL [facility] Platelets 140(L) 145 - 357 x10(3)/[facility] LABORATORY RDWSD 47.2(H) 37.0 - 46.0 [facility]ORY RDWCV 15.8(H) 11.5 - 14.1 % [facility] MPV 11.7 7.6 - 12.9 [facility] LAB[facility]ATORY nRBC % Auto 0.0 % [facility] nRBC Abs Auto 0.000 0.000 - 0.000 x10(3)/[facility] LAB[facility] Blood specimen (specimen) 04/05/2020 3:42 PM EDT 04/05/2020 4:01 PM EDT Narrative Resulting Agency Comment Spec In Lab Heavenly Magana APRN HEMATOLOGY ORDERAB LES [facility] [place] [address] * POCT Glucose (04/05/2020 3:42 PM EDT) [facility] POC Glucose 120 65 - 199 mg/dL [facility] Comment: Supplemental ranges: <140 mg/dL before meals <180 mg/dL all other times of the day Blood specimen (specimen) 04/05/2020 3:42 PM EDT 04/05/2020 3:42 PM EDT Yann Franco MD POINT OF CARE TEST O RDERABLES Performing Organization Address [facility]/ZIP Co de Phone Number [facility] [place] [address] * Antibody screen (04/05/2020 3:42 PM EDT) [facility] Ab Screen Interp Negative [facility] Expires at [id number] on: 04/08/2020 [facility] Blood specimen (specimen) 04/05/2020 3:42 PM EDT 04/05/2020 3:51 PM EDT Narrative Resulting Agency Comment Spec In Lab Heavenly L [place] [facility]ULL BLOOD BANK LAB ORD ERABLES Performing Organization Address [facility] Co de Phone Number [facility] [place] [address] * ABO/Rh Typing (04/05/2020 3:42 PM EDT) ABORH Type O Pos [facility] Blood specimen (specimen) 04/05/2020 3:42 PM EDT 04/05/2020 3:51 PM EDT Narrative Resulting Agency Comment Spec In Lab Heavenly Dominguez [place] HULL BLOOD BANK LAB ORD ERABLES Performing Organization Address [facility]/ZIP Co de Phone Number [facility] [place] [address] * (ABNORMAL) Hepatic Function Panel (04/05/2020 3:42 PM EDT) [facility] Total Protein 6.0(L) 6.1 - 8.0 gm/dL [facility] Albumin 3.0(L) 3.2 - 5.2 gm/dL [facility] AST 22 0 - 30 unit/L [facility] ALT 15 0 - 30 unit/L [facility] Alk Phos 72 35 - 105 unit/L [facility] Total Bilirubin 0.4 0.2 - 1.3 mg/dL [facility] Bili, Direct 0.1 0.0 - 0.3 mg/dL [facility] Blood specimen (specimen) 04/05/2020 3:42 PM EDT 04/05/2020 4:01 PM EDT Narrative Resulting Agency Comment Spec In Lab Heavenly Magana PROTECTIVE SIGNAL REPAIRER CHEMISTRY ORDERABL ES Performing Organization Address [facility] Co de Phone Number [facility] [place] [address] * Ammonia (04/05/2020 3:42 PM EDT) Ammonia 18 11 - 51 mcmol/L [facility] Blood specimen (specimen) 04/05/2020 3:42 PM EDT 04/05/2020 3:59 PM EDT Narrative Resulting Agency Comment Spec In Lab Heavenly Magana PROTECTIVE SIGNAL REPAIRER CHEMISTRY ORDERABL ES Performing Organization Address [facility] Co de Phone Number [facility] [place] [address] * Phosphorus (04/05/2020 3:42 PM EDT) Phosphorus 3.2 2.5 - 4.5 mg/dL [facility] Blood specimen (specimen) 04/05/2020 3:42 PM EDT 04/05/2020 4:01 PM EDT Narrative Resulting Agency Comment Spec In Lab Heavenly Magana PROTECTIVE SIGNAL REPAIRER CHEMISTRY ORDERABL ES Performing Organization Address [facility] Co de Phone Number [facility] [place] [address] * Magnesium (04/05/2020 3:42 PM EDT) Magnesium 0.76 0.69 - 1.07 mmol/L [facility] Blood specimen (specimen) 04/05/2020 3:42 PM EDT 04/05/2020 4:01 PM EDT Narrative Resulting Agency Comment Spec In Lab Heavenly L Magana PROTECTIVE SIGNAL REPAIRER CHEMISTRY ORDERABL ES [facility] [place] [address] * (ABNORMAL) Basic Metabolic Panel (non-fasting) (04/05/2020 3:42 PM EDT) Glucose Lvl 123 65 - 199 mg/dL [facility] Comment:Diabetes: >=200 mg/d L plus symptoms BUN 12 8 - 18 mg/dL [facility] Creatinine 1.12 0.70 - 1.20 mg/dL [facility] Sodium 144 135 - 145 mmol/L [facility] Potassium 3.6 3.5 - 5.0 mmol/L [facility] Comment: Please note: ??Patients with WBC >100,000 may have falsely elevated Potassium levels. ??For accurate Potassium quantification in these patients send serum separator tube (gold top) for subsequent determinations. ??Contact the Clinical Chemistry Laboratory if there are any questions. Chloride 111(H) 98 - 107 mmol/L [facility] CO2 23 22 - 31 mmol/L [facility] Anion Gap 10 5 - 15 mmol/L [facility] Calcium 8.0(L) 8.5 - 10.5 mg/dL [facility] Estimated GFR 51(L) >=60 mL/min/1. 73 m?? [facility] Comment: The eGFR was calculated using the CKD-EPI equation. As with all creatinine based estimates of kidney function, eGFR values calculated with the CKD-EPI equation are not accurate in patients with acute kidney failure, extremes of body mass or the acutely ill. [email or web address] eGFR 59(L) >=60 mL/min/1. 73 m?? [facility] Comment: The eGFR was calculated using the CKD-EPI equation. As with all creatinine based estimates of kidney function, eGFR values calculated with the CKD-EPI equation are not accurate in patients with acute kidney failure, extremes of body mass or the acutely ill. [email or web address] Blood specimen (specimen) 04/05/2020 3:42 PM EDT 04/05/2020 4:01 PM EDT Narrative Resulting Agency Comment Spec In Lab Heavenly Magana APRN CHEMISTRY ORDERABL ES Performing Organization Address [facility] de Phone Number [facility] [place] [address] * (ABNORMAL) Prothrombin Time (04/05/2020 3:42 PM EDT) PT 13.8(H) 9.4 - 12.5 sec [facility] INR 1.2 [facility] Comment: An INR <2.0 [...] depending on clinical circumstances. Blood specimen (specimen) 04/05/2020 3:42 PM EDT 04/05/2020 4:01 PM EDT Narrative Resulting Agency Comment Spec In Lab Heavenly Magana APRN HEMATOLOGY ORDERAB LES Performing Organization Address [facility] Co de Phone Number [facility] [place] [address] documented in this encounter Visit Diagnoses Diagnosis Toxic metabolic encephalopathy- Primary Reserved for inherently not codable concepts WITHOUT codable children Gastroesophageal reflux disease, esophagitis presence not specified Delirium Other alteration of consciousness Toxic metabolic encephalopathy Reserved for inherently not codable concepts WITHOUT codable children Acute cystitis Left lumbar radiculopathy Thoracic or lumbosacral neuritis or radiculitis, unspecified documented in this encounter Administered Medications Inactive Administered Medications - up to 3 most recent administrations Medication Order MAR Action Action Date Dose Rate Site acetaminophen (Tylenol) (32.02 mg/mL) oral liquid 650 mg 650 mg, Per NG tube, EVERY 4 HOURS PRN, Starting on 04/07/20 at 0810, Until 04/13/20 at 1056, Pain, Maximum dose of acetaminophen is 4000 mg from all sources in 24 hours. Should be given concomitantly if other Analgesics are ordered., Routine Given 04/13/2020 8:56 AM EDT 650 mg Given 04/12/2020 8:33 PM EDT 650 mg Given 04/12/2020 12:56 PM EDT 650 mg acetaminophen (Tylenol) (32.02 mg/mL) oral liquid 650 mg 650 mg, Oral, EVERY 4 HOURS PRN, Starting on 04/13/20 at 1053, Until 04/15/20 at 1802, Pain, Maximum dose of acetaminophen is 4000 mg from all sources in 24 hours. Should be given concomitantly if other Analgesics are ordered., Routine Given 04/14/2020 9:26 AM EDT 650 mg Given 04/13/2020 3:56 PM EDT 650 mg bisacodyL (Dulcolax) suppository 10 mg 10 mg, Rectal, DAILY PRN, Starting on Jodee 04/11/20 at 1252, Until 04/15/20 at 1802, Constipation, If miralax ineffective, Routine cefTRIAXone (ROCEPHIN) 1 g vial attach to sodium chloride 0.9% 50 mL Mini-Bag Plus 1 g, Intravenous, EVERY 24 HOURS, 5 doses, First dose on 04/06/20 at 0745, Last dose on 04/10/20 at 0745, Administer over 30 Minutes, Indication for (Active or Suspected): Urinary Tract/Pyelonephritis New Bag 04/10/2020 9:04 AM EDT 1 g 100 mL/hr New Bag 04/09/2020 10:28 AM EDT 1 g 100 mL/hr New Bag 04/08/2020 8:41 AM EDT 1 g 100 mL/hr cloNIDine (Catapres) tablet 0.1 mg 0.1 mg, Oral, 3 TIMES DAILY, First dose on Wed04/10/20 at 1500, Until Discontinued, Routine Given 04/13/2020 8:41 AM EDT 0.1 mg Given 04/12/2020 8:34 PM EDT 0.1 mg Given 04/12/2020 3:12 PM EDT 0.1 mg cloNIDine (Catapres) tablet 0.1 mg 0.1 mg, Oral, 2 TIMES DAILY, First dose (after last modification) on Wed04/13/20 at 2100, Until Discontinued, Routine Given 04/14/2020 9:15 AM EDT 0.1 mg Given 04/13/2020 8:45 PM EDT 0.1 mg cloNIDine (Catapres) tablet 0.1 mg 0.1 mg, Oral, DAILY, First dose (after last modification) on Wed04/15/20 at 0900, Until Discontinued, Routine Given 04/15/2020 8:53 AM EDT 0.1 mg cloNIDine (Catapres) tablet 0.2 mg 0.2 mg, Oral, 3 TIMES DAILY, First dose on Wed04/08/20 at 1400, Until Discontinued, Routine Given 04/08/2020 1:06 PM EDT 0.2 mg cloNIDine (Catapres) tablet 0.2 mg 0.2 mg, Oral, 3 TIMES DAILY, First dose (after last modification) on Wed04/08/20 at 2145, Until Discontinued, Routine Given 04/10/2020 9:04 AM EDT 0.2 mg Given 04/09/2020 8:20 PM EDT 0.2 mg Given 04/09/2020 9:55 AM EDT 0.2 mg dexmedetomidine (PRECEDEX) 4 mcg/mL (standard Adult & Pedi greater than 20kg) infusion (premix) 0-1.7 mcg/kg/hr, Intravenous, CONTINUOUS, Starting on Wed04/05/20 at 1630, Until Wed04/05/20 at 1602, Titrate to sedation level of RASS Goal (-)1 to 0 . Start at 0.4 mcg/kg/hr, adjust by 0.4 mcg/kg/hr every 15 minutes. Once stable, reassess patient every 30 minutes. Rate not to exceed 1.7 mcg/kg/hr. Change rate only after assessing and documenting RASS. Reassess sedation scores within 30 minutes after every rate change. If under sedated, increase rate by 0.4 mcg/kg/hr. If over sedated, hold sedative until target RASS (-)1 to 0 achieved and then restart at 50% of previous rate. Call sales warehouse driver if goal not achieved at maximum rate. If SAT is ordered and if patient meets criteria for Spontaneous Awakening Trial, titrate per protocol., Routine Rate/Dose Change 04/05/2020 3:52 PM EDT 1.7 mcg/kg/hr New Bag 04/05/2020 3:37 PM EDT 1 mcg/kg/hr dexmedetomidine (PRECEDEX) 4 mcg/mL (standard Adult & Pedi greater than 20kg) infusion (premix) 0-1.7 mcg/kg/hr ? 79.6 kg (0-33.83 mL/hr, rounded to 0-33.8 mL/hr), Intravenous, CONTINUOUS, Starting on Wed04/05/20 at 1700, Until Wed04/08/20 at 1148, Titrate to sedation level of RASS Goal (-)1 to 0 . Start at 0.4 mcg/kg/hr, adjust by 0.4 mcg/kg/hr every 15 minutes. Once stable, reassess patient every 30 minutes. Rate not to exceed 1.7 mcg/kg/hr. Change rate only after assessing and documenting RASS. Reassess sedation scores within 30 minutes after every rate change. If under sedated, increase rate by 0.4 mcg/kg/hr. If over sedated, hold sedative until target RASS (-)1 to 0 achieved and then restart at 50% of previous rate. Call sales warehouse driver if goal not achieved at maximum rate. If SAT is ordered and if patient meets criteria for Spontaneous Awakening Trial, titrate per protocol., Routine Rate/Dose Change 04/08/2020 6:31 AM EDT 1.5 mcg/kg/hr 29.9 mL/hr Rate/Dose Change 04/08/2020 5:59 AM EDT 1.2 mcg/kg/hr 23.9 mL/hr New Bag 04/08/2020 5:09 AM EDT 1.5 mcg/kg/hr 29.9 mL/hr dexmedetomidine (PRECEDEX) 400 mcg/100 mL (4 mcg/mL) in 0.9% sodium chloride 1 dose, Starting on Wed04/05/20 at 1442, Until Wed04/05/20 at 1537, ONEIDA GRAHAM: taninet override dextrose 10% infusion 250 mL, at 1,000 mL/hr, Intravenous, EVERY 30 MIN PRN, Starting on Wed04/05/20 at 1536, Until Wed04/15/20 at 1802, For BG 50-70 mg/dL: Oral treatment preferred:?? [...] for the duration of the active insulin. docusate sodium (Colace) (10 mg/mL) oral liquid 200 mg 200 mg, Per NG tube, 2 TIMES DAILY, First dose on 04/06/20 at 1315, Until Discontinued, Routine Given 04/13/2020 9:00 AM EDT 200 mg Given 04/12/2020 8:33 PM EDT 200 mg Given 04/12/2020 8:03 AM EDT 200 mg docusate sodium (Colace) (10 mg/mL) oral liquid 200 mg 200 mg, Oral, 2 TIMES DAILY, First dose (after last modification) on 04/13/20 at 2100, Until Discontinued, Routine Given 04/13/2020 8:47 PM EDT 200 mg enoxaparin (LOVENOX) injection 30 mg 30 mg, Subcutaneous, NIGHTLY, First dose on 04/14/20 at 2100, Until Discontinued, Routine Given 04/14/2020 8:53 PM EDT 30 mg fentaNYL (PF) 50 mcg/mL injection 25 mcg, Intravenous, EVERY 1 HOUR PRN, Starting on Wed04/08/20 at 1723, Until Wed04/09/20 at 0903, Pain, Routine Given 04/08/2020 5:28 PM EDT 25 mcg folic acid (Folvite) tablet 1,000 mcg 1,000 mcg (1 mg), Oral, DAILY, First dose on Wed04/14/20 at 0900, Until Discontinued, Routine Given 04/15/2020 8:53 AM EDT 1,000 mcg Given 04/14/2020 9:16 AM EDT 1,000 mcg folic acid injection 1 mg 1 mg, Intravenous, DAILY, First dose on Wed04/05/20 at 1700, Until Discontinued, Routine Given 04/13/2020 9:58 AM EDT 1 mg Given 04/12/2020 8:21 AM EDT 1 mg Given 04/11/2020 9:39 AM EDT 1 mg glucagon (human recombinant) injection SolR 1 mg 1 mg, Intramuscular, EVERY 30 MIN PRN, Starting on Wed04/05/20 at 1536, Until Wed04/15/20 at 1802, Low blood sugar, For BG 50-70 mg/dL: [...] Buccal, EVERY 30 MIN PRN, Starting on Wed04/05/20 at 1536, Until Wed04/15/20 at 1802, Low blood sugar, For BG 50-70 mg/dL: [...] weight of tube = 37.5 grams., Routine haloperidol lactate (Haldol) injection 5 mg 5 mg, Intravenous, ONCE, 1 dose, On 04/06/20 at 0915, Please administer just prior to DHT placement, Routine Given 04/06/2020 10:18 AM EDT 5 mg haloperidol lactate (Haldol) injection 5 mg 5 mg, Intravenous, EVERY 6 HOURS PRN, Starting on 04/06/20 at 1914, Until 04/10/20 at 0950, Agitation, If medication ordered subcutaneously, do not administer more than 3 mL as a single injection., Routine Given 04/08/2020 9:15 AM EDT 5 mg Given 04/08/2020 12:08 AM EDT 5 mg Given 04/07/2020 4:35 PM EDT 5 mg heparin (Porcine) subcutaneous injection 5,000 Units 5,000 Units, Subcutaneous, EVERY 8 HOURS SCHEDULED, First dose on Wed04/05/20 at 1600, Until Discontinued, Routine Given 04/14/2020 7:49 AM EDT 5,000 Unit s Given 04/14/2020 12:07 AM EDT 5,000 Units Given 04/13/2020 4:58 PM EDT 5,000 Units insulin lispro (HumaLOG) VIAL injection 1-6 Units 1-6 Units, Subcutaneous, 3 TIMES DAILY BEFORE MEALS, First dose on Wed04/13/20 at 1130, Until Discontinued, CORRECTION BOLUS [1-6 Units] Moderate Sliding Scale: Correction factor 20 (1 unit of insulin is expected to drop the glucose 20 mg/dL) BG 140 - 160 Give 1 unit BG 161 - 180 Give 2 units BG 181 - 200 Give 3 units BG 201 - 220 Give 4 units BG 221 - 240 Give 5 units BG greater than 240, give 6 units and recheck BG in 2 hours. - If recheck BG is LESS than 240, give no insulin and resume schedule. - If recheck BG is GREATER than 240, give 6 units and repeat BG in 2 hours (no more than 3 times) & call for new insulin orders. DO NOT hold if NPO, unless specifically told to do so. Per Blood Glucose Monitoring Policy, re-check a BG of > 240 in 2 hours., Routine Given 04/14/2020 11:52 AM EDT 1 Units insulin lispro (HumaLOG) VIAL injection 1-6 Units 1-6 Units, Subcutaneous, 4 TIMES DAILY BEFORE MEALS & NIGHTLY, First dose (after last modification) on Wed04/15/20 at 1630, Until Discontinued, CORRECTION BOLUS [1-6 Units] Moderate Sliding Scale: Correction factor 20 (1 unit of insulin is expected to drop the glucose 20 mg/dL) BG 140 - 160 Give 1 unit BG 161 - 180 Give 2 units BG 181 - 200 Give 3 units BG 201 - 220 Give 4 units BG 221 - 240 Give 5 units BG greater than 240, give 6 units and recheck BG in 2 hours. - If recheck BG is LESS than 240, give no insulin and resume schedule. - If recheck BG is GREATER than 240, give 6 units and repeat BG in 2 hours (no more than 3 times) & call for new insulin orders. DO NOT hold if NPO, unless specifically told to do so. Per Blood Glucose Monitoring Policy, re-check a BG of > 240 in 2 hours., Routine insulin lispro (HumaLOG) VIAL injection 2-8 Units 2-8 Units, Subcutaneous, EVERY 4 HOURS SCHEDULED, First dose on Wed04/05/20 at 1630, Until Discontinued, CORRECTION BOLUS Moderate BG 140 - 160 Give 2 units BG 161 - 200 Give 4 units BG 201 - 240 Give 6 units BG greater than 240, give 8 units and recheck BG in 2 hours. If less than 240 after two hours, give no insulin and resume prior schedule. If BG remains greater than 240, repeat 8 units (no more than three times) & call for new basal insulin orders. Do not hold if NPO, unless specifically told to do so., Routine Given 04/12/2020 8:43 PM EDT 4 Units Given 04/12/2020 7:50 AM EDT 2 Units Given 04/12/2020 5:45 AM EDT 4 Units labetalol (NORMODYNE,TRANDATE) injection 10 mg 10 mg, Intravenous, EVERY 2 HOURS PRN, Starting on 04/06/20 at 1755, Until 04/13/20 at 1056, High Blood Pressure, PRN SBP sustained >170, hold if HR is <65 and use Hydralazine instead., Routine Given 04/06/2020 11:05 PM EDT 10 mg lactated Ringers 500 mL IV bolus Intravenous, ONCE, 1 dose, On Wed04/08/20 at 1830 New Bag 04/08/2020 7:26 PM EDT 500 mL/hr lactated ringers infusion 75 mL/hr, Intravenous, CONTINUOUS, Starting on Wed04/10/20 at 1600, Until 04/13/20 at 0940 New Bag 04/13/2020 6:28 AM EDT 75 mL/hr 75 mL/hr New Bag 04/12/2020 3:32 PM EDT 75 mL/hr 75 mL/hr New Bag 04/11/2020 11:27 PM EDT 75 mL/hr 75 mL/hr lactulose (Chronulac) (0.67 gram/mL) oral liquid 20 g 20 g, Oral, 4 TIMES DAILY PRN, Starting on 04/13/20 at 1436, Until 04/15/20 at 1802, Titrate dose to achieve 2-3BM's daily, Titrate dosing frequency to achieve 2-3 BM's., Routine Given 04/14/2020 9: 16 AM EDT 20 g Given 04/13/2020 5:51 PM EDT 20 g LORazepam (ATIVAN) injection 1-3 mg 1-3 mg, Intravenous, EVERY 4 HOURS PRN, Starting on Wed04/05/20 at 1536, Until Wed04/05/20 at 1801, alcohol/benzodiazepine withdrawal- uncomplicated, When given intravenously, the rate of administration should not exceed 2 mg/minute with ermergency equipment available. Per assessment scale for uncomplicated withdrawal from alcohol. May give IV if unable to take PO. May give IM if no IV access. Medication should be administered at least every 4 hours: For withdrawal score of 5-7, give 1 mg PO or IV or IM: administer every 4 hours. For withdrawal score of 8-10, give 2 mg PO or IV or IM: administer every 4 hours. For withdrawal score of 11 or greater, give 3 mg PO or IV or IM: administer every 4 hours. + If withdrawal score remains 11 or greater for two consecutive assessment periods, call provider. + If patient has had seizures in previous 8 hours and has gone 4 hours without medications, give 3 mg PO or IV or IM., Routine Given 04/05/2020 5:58 PM EDT 2 mg magnesium oxide (Mag-Ox) tablet 400 mg 400 mg, Per NG tube, 2 TIMES DAILY, First dose on Wed04/07/20 at 0900, Until Discontinued, Routine Given 04/13/2020 8:42 AM EDT 400 mg Given 04/12/2020 8:33 PM EDT 400 mg Given 04/12/2020 8:03 AM EDT 400 mg magnesium oxide (Mag-Ox) tablet 400 mg 400 mg, Oral, 2 TIMES DAILY, First dose (after last modification) on 04/13/20 at 2100, Until Discontinued, Routine Given 04/15/2020 8:53 AM EDT 400 mg Given 04/14/2020 8:53 PM EDT 400 mg Given 04/14/2020 9:15 AM EDT 400 mg magnesium sulfate 1g in dextrose 5% 100mL 1 g, Intravenous, ONCE, 1 dose, On 04/06/20 at 0230, Administer over 60 Minutes New Bag 04/06/2020 2:12 AM EDT 1 g 100 mL/hr magnesium sulfate 1g in dextrose 5% 100mL 1 g, Intravenous, ONCE, 1 dose, On 04/07/20 at 0230, Administer over 60 Minutes New Bag 04/07/2020 2:01 AM EDT 1 g 100 mL/hr magnesium sulfate 1g in dextrose 5% 100mL 1 g, Intravenous, ONCE, 1 dose, On 04/08/20 at 0630, Administer over 60 Minutes New Bag 04/08/2020 6:03 AM EDT 1 g 100 mL/hr magnesium sulfate 2 g in sterile water 50 mL 2 g, Intravenous, ONCE, 1 dose, On Wed04/08/20 at 1915, Administer over 120 Minutes New Bag 04/08/2020 7:42 PM EDT 2 g 25 mL/hr melatonin tablet 6 mg 6 mg, Oral, NIGHTLY, First dose on Wed04/09/20 at 2100, Until Discontinued, Routine Given 04/14/2020 8:53 PM EDT 6 mg Given 04/13/2020 8:45 PM EDT 6 mg Given 04/12/2020 8:34 PM EDT 6 mg ondansetron (ZOFRAN) injection 4 mg 4 mg, Intravenous, EVERY 8 HOURS PRN, Starting on Wed04/12/20 at 0815, Until Wed04/15/20 at 1802, Nausea Given 04/12/2020 8:30 PM EDT 4 mg Given 04/12/2020 8:21 AM EDT 4 mg pantoprazole (PROTONIX) injection 40 mg 40 mg, Intravenous, DAILY, First dose on Wed04/05/20 at 1700, Until Discontinued Given 04/13/2020 8:40 AM EDT 40 mg Given 04/12/2020 8:03 AM EDT 40 mg Given 04/11/2020 9:39 AM EDT 40 mg pantoprazole EC (Protonix) tablet 40 mg 40 mg, Oral, DAILY, First dose on Wed04/14/20 at 0900, Until Discontinued, DO NOT CRUSH OR OPEN Given 04/15/2020 8:54 AM EDT 40 mg Given 04/14/2020 9:15 AM EDT 40 mg polyethylene glycoL (Miralax) packet 17 g 17 g, Per G Tube, DAILY PRN, Starting on Jodee 04/11/20 at 1252, Until 04/13/20 at 1056, Constipation, Routine Given 04/12/2020 8:02 AM EDT 17 g Given 04/11/2020 9:53 PM EDT 17 g polyethylene glycoL (Miralax) packet 17 g 17 g, Oral, DAILY PRN, Starting on 04/13/20 at 1055, Until Wed04/15/20 at 1802, Constipation, Routine potassium bicarbonate (Effer-K) effervescent tablet 20-60 mEq 20-60 mEq, Per NG tube, EVERY 4 HOURS PRN, Starting on Wed04/07/20 at 0612, Until Wed04/10/20 at 1329, hypokalemia, For serum potassium: 3.9 - 4 mMol/L = 20 mEq. 3.6 - 3.8 mMol/L = 40 mEq. 3.3 - 3.5 mMol/L = 40 mEq. 2.8 - 3.2 mMol/L = 60 mEq. Less than 2.8 = Call physician, then begin potassium chloride replacement via central or peripheral IV route. See instructions for Potassium Protocol in online policies. DO NOT GIVE UNDILUTED MEDICATION TO PATIENT. Dissolve tablet completely in 3-4 ounces of cold water or juice. May further dilute if adverse GI effects occur., Routine Given 04/09/2020 6:24 AM EDT 40 mEq Given 04/08/2020 4:13 AM EDT 40 mEq Given 04/07/2020 5:09 PM EDT 40 mEq potassium, sodium phosphates (Neutra-Phos) 280-160-250 mg oral packet 1.5 g 1.5 g, Per NG tube, ONCE, 1 dose, On Wed04/07/20 at 0815, Take with full glass of water, Routine Given 04/07/2020 7:42 AM EDT 1.5 g sennosides (Senokot) (1.76 mg/mL) oral liquid 17.6 mg 17.6 mg, Per NG tube, 2 TIMES DAILY, First dose on Wed04/06/20 at 1315, Until Discontinued, Routine Given 04/13/2020 8:42 AM EDT 17.6 mg Given 04/12/2020 8:33 PM EDT 17.6 mg Given 04/12/2020 8:02 AM EDT 17.6 mg sennosides (Senokot) (1.76 mg/mL) oral liquid 17.6 mg 17.6 mg, Per NG tube, 2 TIMES DAILY, First dose (after last modification) on Wed04/13/20 at 2100, Until Discontinued, Routine Given 04/13/2020 8:48 PM EDT 17.6 mg sodium chloride 0.9 % (flush) flush 5 mL 5 mL, Intravenous, 2 TIMES DAILY, First dose on Wed04/05/20 at 2100, Until Discontinued, Routine Given 04/15/2020 8:55 AM EDT 5 mLs Given 04/14/2020 8:58 PM EDT 5 mLs Given 04/14/2020 9:20 AM EDT 5 mLs sodium chloride 0.9% infusion 10 mL/hr, Intravenous, CONTINUOUS PRN, Starting on Wed04/05/20 at 1536, Until Wed04/10/20 at 1329 New 04/08/2020 1:07 AM EDT 10 mL/hr 10 mL/hr Rate/Dose Verify 04/05/2020 6:00 PM EDT 10 mL/hr 10 mL/h r New 04/05/2020 4:30 PM EDT 10 mL/hr 10 mL/hr thiamine (B-1) 250 mg in sodium chloride 0.9% 52.5 mL 250 mg, Intravenous, DAILY, 3 doses, First dose on Wed04/09/20 at 0900, Last dose on Wed04/11/20 at 0900, Administer over 30 Minutes, Doses of 100 mg are to be administered as IV push over 5 minutes. Doses of 200 mg or more should be mixed in 50 mL 0.9% Sodium Chloride and infused over 30 minutes. New 04/11/2020 9:39 AM EDT 250 mg 105 mL/hr 04/10/2020 9:56 AM EDT 250 mg 105 mL/hr 04/09/2020 11:19 AM EDT 250 mg 105 mL/hr thiamine (B-1) 500 mg in sodium chloride 0.9% 55 mL 500 mg, Intravenous, 3 TIMES DAILY, 9 doses, First dose on Wed04/05/20 at 1700, Last dose on Wed04/08/20 at 0900, Administer over 30 Minutes, Doses of 100 mg are to be administered as IV push over 5 minutes. Doses of 200 mg or more should be mixed in 50 mL 0.9% Sodium Chloride and infused over 30 minutes. New 04/08/2020 9:18 AM EDT 500 mg 110 mL/hr New 04/07/2020 9:35 PM EDT 500 mg 110 mL/hr New 04/07/2020 3:20 PM EDT 500 mg 110 mL/hr thiamine (Vitamin B1) tablet 100 mg 100 mg, Oral, DAILY, First dose on Wed04/12/20 at 0900, Until Discontinued, Routine Given 04/15/2020 8:53 AM EDT 100 mg Given 04/14/2020 9:15 AM EDT 100 mg Given 04/13/2020 8:42 AM EDT 100 mg tube feeding diet 840 mL, Per NG tube, at 42 mL/hr, CONTINUOUS, Starting on Wed04/06/20 at 1345, Until Wed04/09/20 at 2017, Administer flushes and check residuals per policy, Which tube feed product? Nepro, Initial Rate: (mL/hr): 10, Advance by: (mL): 10, Advance every: Q4H, Goal final rate: (mL/hr): 42 Rate/Dose Verify 04/09/2020 6:00 AM EDT 42 mL/hr Rate/Dose Verify 04/09/2020 4:00 AM EDT 42 mL/h r Rate/Dose Verify 04/09/2020 2:00 AM EDT 42 mL/h r tube feeding diet 800 mL, Per NG tube, at 40 mL/hr, CONTINUOUS, Starting on Wed04/09/20 at 2115, Until Wed04/12/20 at 0911, Administer flushes and check residuals per policy, Which tube feed product? Nutren 2.0, Initial Rate: (mL/hr): 40, Goal final rate: (mL/hr): 40 New Bag 04/12/2020 5:37 AM EDT 800 mLs 40 mL/hr Rate/Dose Verify 04/11/2020 10:00 PM EDT 40 mL/ hr New Bag 04/10/2020 10:28 PM EDT 800 mLs 40 mL/hr documented in this encounter Active and Recently Administered Medications Times are shown in EDT. Scheduled Medication Order 04/13/2020 04/14/2020 04/15/2020 cloNIDine (Catapres) tablet 0.1 mg (CANCELED) 0.1 mg, Oral, 3 TIMES DAILY, First dose on Wed04/10/20 at 1500, Until Discontinued, Routine 840 (Given - Provider: Ghazala Shaffer RN) cloNIDine (Catapres) tablet 0.1 mg (CANCELED) 0.1 mg, Oral, 2 TIMES DAILY, First dose (after last modification) on Wed04/13/20 at 2100, Until Discontinued, Routine 2044 (Given - Provider: Jeniffer Rojas RN) 0915 (Given - Provider: Ghazala Shaffer RN) cloNIDine (Catapres) tablet 0.1 mg 0.1 mg, Oral, DAILY, First dose (after last modification) on 04/15/20 at 0900, Until Discontinued, Routine 0853 (Given - Provider: Silvana Carrillo RN) docusate sodium (Colace) (10 mg/mL) oral liquid 200 mg (CANCELED) 200 mg, Per NG tube, 2 TIMES DAILY, First dose on 04/06/20 at 1315, Until Discontinued, Routine 0900 (Given - Provider: Ghazala Shaffer RN) docusate sodium (Colace) (10 mg/mL) oral liquid 200 mg (CANCELED)(Linked Group 1) 200 mg, Oral, 2 TIMES DAILY, First dose (after last modification) on 04/13/20 at 2100, Until Discontinued, Routine 2046 (Given - Provider: Jeniffer Rojas RN) 0900 (Not Given - Provider: Ghazala Shaffer RN - Reason: Medication Discontinued) enoxaparin (LOVENOX) injection 30 mg 30 mg, Subcutaneous, NIGHTLY, First dose on 04/14/20 at 2100, Until Discontinued, Routine 2052 (Given - Provider: Felicitas Valera RN) folic acid (Folvite) tablet 1,000 mcg 1,000 mcg (1 mg), Oral, DAILY, First dose on 04/14/20 at 0900, Until Discontinued, Routine 0916 (Given - Provider: Ghazala Shaffer RN) 0853 (Given - Provider: Silvana Carrillo RN) folic acid injection 1 mg (CANCELED) 1 mg, Intravenous, DAILY, First dose on Wed04/05/20 at 1700, Until Discontinued, Routine 0958 (Given - Provider: Ghazala Shaffer RN) heparin (Porcine) subcutaneous injection 5,000 Units (CANCELED) 5,000 Units, Subcutaneous, EVERY 8 HOURS SCHEDULED, First dose on Wed04/05/20 at 1600, Until Discontinued, Routine 0109 (Given - Provider: Tevin Aquino RN)0840 (Given - Provider: Ghazala Shaffer RN)1658 (Given - Provider: Ghazala Shaffer RN) 0007 (Given - Provider: Jeniffer Rojas RN)0749 (Given - Provider: Ghazala Shaffer RN) insulin lispro (HumaLOG) VIAL injection 1-6 Units (CANCELED) 1-6 Units, Subcutaneous, 3 TIMES DAILY BEFORE MEALS, First dose on 04/13/20 at 1130, Until Discontinued, CORRECTION BOLUS [1-6 Units] Moderate Sliding Scale: Correction factor 20 (1 unit of insulin is expected to drop the glucose 20 mg/dL) BG 140 - 160 Give 1 unit BG 161 - 180 Give 2 units BG 181 - 200 Give 3 units BG 201 - 220 Give 4 units BG 221 - 240 Give 5 units BG greater than 240, give 6 units and recheck BG in 2 hours. - If recheck BG is LESS than 240, give no insulin and resume schedule. - If recheck BG is GREATER than 240, give 6 units and repeat BG in 2 hours (no more than 3 times) & call for new insulin orders. DO NOT hold if NPO, unless specifically told to do so. Per Blood Glucose Monitoring Policy, re-check a BG of > 240 in 2 hours., Routine 1130 (Not Given - Provider: Ghazala Shaffer RN - Reason: Order parameters not met - Comment: BG 126)1630 (Not Given - Provider: Ghazala Shaffer RN - Reason: Order parameters not met - Comment: BG 132) 0708 (Not Given - Provider: Jeniffer Rojas RN - Reason: Order parameters not met - Comment: BG 128)1152 (Given - Provider: Ghazala Shaffer RN - Comment: BG 140)1630 (Not Given - Provider: Ghazala Shaffer RN - Reason: Order parameters not met - Comment: BG 128) 0730 (Not Given - Provider: Felicitas Valera RN - Reason: Order parameters not met)1130 (Not Given - Provider: Silvana Carrillo RN - Reason: Order parameters not met - Comment: BG 97) insulin lispro (HumaLOG) VIAL injection 1-6 Units(Linked Group 2) 1-6 Units, Subcutaneous, 4 TIMES DAILY BEFORE MEALS & NIGHTLY, First dose (after last modification) on 04/15/20 at 1630, Until Discontinued, CORRECTION BOLUS [1-6 Units] Moderate Sliding Scale: Correction factor 20 (1 unit of insulin is expected to drop the glucose 20 mg/dL) BG 140 - 160 Give 1 unit BG 161 - 180 Give 2 units BG 181 - 200 Give 3 units BG 201 - 220 Give 4 units BG 221 - 240 Give 5 units BG greater than 240, give 6 units and recheck BG in 2 hours. - If recheck BG is LESS than 240, give no insulin and resume schedule. - If recheck BG is GREATER than 240, give 6 units and repeat BG in 2 hours (no more than 3 times) & call for new insulin orders. DO NOT hold if NPO, unless specifically told to do so. Per Blood Glucose Monitoring Policy, re-check a BG of > 240 in 2 hours., Routine magnesium oxide (Mag-Ox) tablet 400 mg (CANCELED) 400 mg, Per NG tube, 2 TIMES DAILY, First dose on Wed04/07/20 at 0900, Until Discontinued, Routine 08 (Given - Provider: Ghazala Shaffer RN) magnesium oxide (Mag-Ox) tablet 400 mg 400 mg, Oral, 2 TIMES DAILY, First dose (after last modification) on Wed04/13/20 at 2100, Until Discontinued, Routine 2044 (Given - Provider: Jeniffer Rojas RN) 0915 (Given - Provider: Ghazala Shaffer RN)2052 (Given - Provider: Felicitas Valera, RODERICK) 0853 (Given - Provider: Silvana Carrillo, RODERICK) melatonin tablet 6 mg 6 mg, Oral, NIGHTLY, First dose on Wed04/09/20 at 2100, Until Discontinued, Routine 2044 (Given - Provider: Jeniffer Rojas RN) 2052 (Given - Provider: Felicitas Valera, RODERICK) pantoprazole (PROTONIX) injection 40 mg (CANCELED) 40 mg, Intravenous, DAILY, First dose on Wed04/05/20 at 1700, Until Discontinued 0840 (Given - Provider: Ghazala Shaffer RN) pantoprazole EC (Protonix) tablet 40 mg 40 mg, Oral, DAILY, First dose on Wed04/14/20 at 0900, Until Discontinued, DO NOT CRUSH OR OPEN 0915 (Given - Provider: Ghazala Shaffer RN) 0854 (Given - Provider: Silvana Carrillo, RODERICK) sennosides (Senokot) (1.76 mg/mL) oral liquid 17.6 mg (CANCELED) 17.6 mg, Per NG tube, 2 TIMES DAILY, First dose on Wed04/06/20 at 1315, Until Discontinued, Routine 0842 (Given - Provider: Ghazala Shaffer RN) sennosides (Senokot) (1.76 mg/mL) oral liquid 17.6 mg (CANCELED)(Linked Group 1) 17.6 mg, Per NG tube, 2 TIMES DAILY, First dose (after last modification) on Wed04/13/20 at 2100, Until Discontinued, Routine 2047 (Given - Provider: Jeniffer Rojas RN) 0900 (Not Given - Provider: Ghazala Shaffer RN - Reason: Medication Discontinued) sodium chloride 0.9 % (flush) flush 5 mL 5 mL, Intravenous, 2 TIMES DAILY, First dose on Wed04/05/20 at 2100, Until Discontinued, Routine 0852 (Given - Provider: Ghazala Shaffer RN)2050 (Given - Provider: Jeniffer Rojas RN) 09 (Given - Provider: Ghazala Shaffer RN)2057 (Given - Provider: Felicitas Valera RN) 0855 (Given - Provider: Silvana Carrillo RN) thiamine (Vitamin B1) tablet 100 mg(Linked Group 3) 100 mg, Oral, DAILY, First dose on Wed04/12/20 at 0900, Until Discontinued, Routine 0842 (Given - Provider: Ghazala Shaffer RN) 0915 (Given - Provider: Ghazala Shaffer RN) 0853 (Given - Provider: Silvana Carrillo, RODERICK) Continuous Medication Order 04/13/2020 04/14/2020 04/15/2020 lactated ringers infusion (CANCELED) 75 mL/hr, Intravenous, CONTINUOUS, Starting on Wed04/10/20 at 1600, Until 04/13/20 at 0940 0628 (New Bag - Provider: Tevin Aquino RN)1015 (Stopped - Provider: Ghazala Shaffer RN) PRN Medication Order 04/13/2020 04/14/2020 04/15/2020 acetaminophen (Tylenol) (32.02 mg/mL) oral liquid 650 mg (CANCELED) 650 mg, Per NG tube, EVERY 4 HOURS PRN, Starting on Wed04/07/20 at 0810, Until 04/13/20 at 1056, Pain, Maximum dose of acetaminophen is 4000 mg from all sources in 24 hours. Should be given concomitantly if other Analgesics are ordered., Routine 0856 (Given - Provider: Ghazala Shaffer RN) acetaminophen (Tylenol) (32.02 mg/mL) oral liquid 650 mg 650 mg, Oral, EVERY 4 HOURS PRN, Starting on 04/13/20 at 1053, Until 04/15/20 at 1802, Pain, Maximum dose of acetaminophen is 4000 mg from all sources in 24 hours. Should be given concomitantly if other Analgesics are ordered., Routine 1556 (Given - Provider: Ghazala Shaffer RN) 0926 (Given - Provider: Ghazala Shaffer RN) bisacodyL (Dulcolax) suppository 10 mg 10 mg, Rectal, DAILY PRN, Starting on Jodee 04/11/20 at 1252, Until 04/15/20 at 1802, Constipation, If miralax ineffective, Routine dextrose 10% infusion(Linked Group 4) 250 mL, at 1,000 mL/hr, Intravenous, EVERY 30 MIN PRN, Starting on Wed04/05/20 at 1536, Until Wed04/15/20 at 1802, For BG 50-70 mg/dL: Oral treatment preferred:?? [...] the duration of the active insulin. glucagon (human recombinant) injection SolR 1 mg(Linked Group 4) 1 mg, Intramuscular, EVERY 30 MIN PRN, Starting on Wed04/05/20 at 1536, Until Wed04/15/20 at 1802, Low blood sugar, For BG 50-70 mg/dL: [...] Routine glucose (GLUTOSE) 40% oral geL(Linked Group 4) 15-30 g, Buccal, EVERY 30 MIN PRN, Starting on Wed04/05/20 at 1536, Until Wed04/15/20 at 1802, Low blood sugar, For BG 50-70 mg/dL: [...] weight of tube = 37.5 grams., Routine lactulose (Chronulac) (0.67 gram/mL) oral liquid 20 g 20 g, Oral, 4 TIMES DAILY PRN, Starting on 04/13/20 at 1436, Until Wed04/15/20 at 1802, Titrate dose to achieve 2-3BM's daily, Titrate dosing frequency to achieve 2-3 BM's., Routine 1751 (Given - Provider: Ghazala Shaffer RN) 0916 (Given - Provider: Ghazala Shaffer RN) lidocaine (XYLOCAINE) 10 mg/mL (1 %) injection 3 mg 3 mg (0.3 mL), Subcutaneous, ONCE PRN, 1 dose, Starting on Wed04/05/20 at 1536, Until Wed04/15/20 at 1802, for discomfort with PIV insertion, Routine ondansetron (ZOFRAN) injection 4 mg 4 mg, Intravenous, EVERY 8 HOURS PRN, Starting on Wed04/12/20 at 0815, Until Wed04/15/20 at 1802, Nausea polyethylene glycoL (Miralax) packet 17 g 17 g, Oral, DAILY PRN, Starting on 04/13/20 at 1055, Until Wed04/15/20 at 1802, Constipation, Routine sodium chloride 0.9 % (flush) flush 5-20 mL 5-20 mL, Intravenous, EVERY 1 MIN PRN, Starting on Wed04/05/20 at 1536, Until Wed04/15/20 at 1802, flush, Flush pertains to all indwelling lines. Flush per protocol found in the job aid using the link provided on this medication record., Routine Linked Groups Order Group 1: docusate sodium (Colace) (10 mg/mL) oral liquid 200 mg (CANCELED)Jump to med 200 mg, Oral, 2 TIMES DAILY, First dose (after last modification) on 04/13/20 at 2100, Until Discontinued, Routine And sennosides (Senokot) (1.76 mg/mL) oral liquid 17.6 mg (CANCELED)Jump to med 17.6 mg, Per NG tube, 2 TIMES DAILY, First dose (after last modification) on Wed04/13/20 at 2100, Until Discontinued, Routine Group 2: POCT Fingerstick Glucose (CANCELED) Routine, 4 TIMES DAILY BEFORE MEALS & AT BEDTIME, First occurrence on Wed04/15/20 at 1700, Until Specified, Consider choosing FOUR TIMES A DAY BEFORE MEALS AND AT BEDTIME as frequency for: Patients who have a good hypoglycemia awareness: -Patients who are eating meals during the day and sleeping at night -Patient who are otherwise stable And insulin lispro (HumaLOG) VIAL injection 1-6 UnitsJump to med 1-6 Units, Subcutaneous, 4 TIMES DAILY BEFORE MEALS & NIGHTLY, First dose (after last modification) on Wed04/15/20 at 1630, Until Discontinued, CORRECTION BOLUS [1-6 Units] Moderate Sliding Scale: Correction factor 20 (1 unit of insulin is expected to drop the glucose 20 mg/dL) BG 140 - 160 Give 1 unit BG 161 - 180 Give 2 units BG 181 - 200 Give 3 units BG 201 - 220 Give 4 units BG 221 - 240 Give 5 units BG greater than 240, give 6 units and recheck BG in 2 hours. - If recheck BG is LESS than 240, give no insulin and resume schedule. - If recheck BG is GREATER than 240, give 6 units and repeat BG in 2 hours (no more than 3 times) & call for new insulin orders. DO NOT hold if NPO, unless specifically told to do so. Per Blood Glucose Monitoring Policy, re-check a BG of > 240 in 2 hours., Routine Group 3: thiamine (B-1) 500 mg in sodium chloride 0.9% 55 mL (COMPLETED) 500 mg, Intravenous, 3 TIMES DAILY, 9 doses, First dose on Wed04/05/20 at 1700, Last dose on Wed04/08/20 at 0900, Administer over 30 Minutes, Doses of 100 mg are to be administered as IV push over 5 minutes. Doses of 200 mg or more should be mixed in 50 mL 0.9% Sodium Chloride and infused over 30 minutes. Followed by thiamine (B-1) 250 mg in sodium chloride 0.9% 52.5 mL (COMPLETED) 250 mg, Intravenous, DAILY, 3 doses, First dose on Wed04/09/20 at 0900, Last dose on Wed04/11/20 at 0900, Administer over 30 Minutes, Doses of 100 mg are to be administered as IV push over 5 minutes. Doses of 200 mg or more should be mixed in 50 mL 0.9% Sodium Chloride and infused over 30 minutes. Followed by thiamine (Vitamin B1) tablet 100 mgJump to med 100 mg, Oral, DAILY, First dose on Wed04/12/20 at 0900, Until Discontinued, Routine Group 4: glucose (GLUTOSE) 40% oral geLJump to med 15-30 g, Buccal, EVERY 30 MIN PRN, Starting on Wed04/05/20 at 1536, Until Wed04/15/20 at 1802, Low blood sugar, For BG 50-70 mg/dL: [...] Intravenous, EVERY 30 MIN PRN, Starting on Wed04/05/20 at 1536, Until Wed04/15/20 at 1802, For BG 50-70 mg/dL: Oral treatment preferred:?? [...] duration of the active insulin. Or glucagon (human recombinant) injection SolR 1 mgJump to med 1 mg, Intramuscular, EVERY 30 MIN PRN, Starting on Wed04/05/20 at 1536, Until Wed04/15/20 at 1802, Low blood sugar, For BG 50-70 mg/dL: [...] Routine documented in this encounter Care Teams Senior Java Programmer Relationship Specialty Start Date End Date Cass Abebe, PROTECTIVE SIGNAL REPAIRER [id number] [place] [address] PCP - General Internal Medicine 04/04/20 06/06/20 documented as of this encounter
--- OUTSIDE RECORDS SUMMARY | 2024-05-02 12:15 | XMS_ITS | Encounter Summary ---
[place] [address] Care Team Providers Care Incoming Inspector Name Role Phone Unavailable Primary Care Provider Unavailabl e Encounter Details Date Type Department Care Team (Late st Contact Info) Description 08/28/2010 10:30 AM EST Procedure visit [place] [address] Social History Tobacco Use Types Packs/Day Years Used Date Smoking Tobacco: Never Assessed Sex and Gender Information Value Date Recorded Sex Assigned at Not on file Gender Identity Not on file Sexual Orientation Not on file documented as of this encounter Plan of Treatment Upcoming Encounters Date Type Department Care Team (Latest Contact Info) Description 05/08/2024 10:30 AM EDT Hospital Encounter [place] [phone] Bk Contreras MD [facility] [place] [address] 05/08/2024 10:30 AM EDT - 05/08/2024 11:00 AM EDT Surgery [place] [address] Bk Contreras MD [facility] [place] [address] INJECTION, ANESTHETIC AGENT AND/OR STEROID, TRANSFORAMINAL EPIDURAL, LUMBAR OR SACRAL, SINGLE LEVEL (WRVU 1.9) 05/12/2024 1:00 PM EDT Office Visit Cardiology at [address] [phone] Sadi Styles MD [facility] [place] [address] 05/29/2024 10:15 AM EDT TH Visit (TeleHealth) [facility] [place] [id number] Natalee Sanchez APRN [facility] [place] [address] Scheduled Procedures Name Priority Associated Diagnoses Date/Ti me INJECTION, ANESTHETIC AGENT AND/OR STEROID, TRANSFORAMINAL EPIDURAL, LUMBAR OR SACRAL, SINGLE LEVEL (WRVU 1.9) Left lumbar radiculopathy 05/08/2024 10:30 AM EDT documented as of this encounter Visit Diagnoses Not on filedocumented in this encounter
--- OUTSIDE RECORDS SUMMARY | 2024-05-02 12:15 | XMS_ITS | Encounter Summary ---
[place] [address] Care Team Providers Care Client Customer Manager Name Role Phone Immanuel Jorge MD Primary Care Provider [phone] Encounter Details Date Type Department Care Team (Late st Contact Info) Description 08/13/2010 Orders [place] [phone] Lorna Perez MD [facility] [place] [address] Social History Tobacco Use Types Packs/Day Years Used Date Smoking Tobacco: Never Assessed Sex and Gender Information Value Date Recorded Sex Assigned at Not on file Gender Identity Not on file Sexual Orientation Not on file documented as of this encounter Plan of Treatment Upcoming Encounters Date Type Department Care Team (Latest Contact Info) Description 05/08/2024 10:30 AM EDT Hospital Encounter [place] [phone] Bk Contreras MD [facility] [place] [address] 05/08/2024 10:30 AM EDT - 05/08/2024 11:00 AM EDT Surgery [place] [address] Bk Contreras MD [facility] [place] [address] INJECTION, ANESTHETIC AGENT AND/OR STEROID, TRANSFORAMINAL EPIDURAL, LUMBAR OR SACRAL, SINGLE LEVEL (WRVU 1.9) 05/12/2024 1:00 PM EDT Office Visit Cardiology at [place] [phone] Sadi Styles MD [facility] [place] [address] 05/29/2024 10:15 AM EDT TH Visit (TeleHealth) [place] [phone] Natalee Sanchez APRN [facility] [address] Scheduled Procedures Name Priority Associated Diagnoses Date/Ti me INJECTION, ANESTHETIC AGENT AND/OR STEROID, TRANSFORAMINAL EPIDURAL, LUMBAR OR SACRAL, SINGLE LEVEL (WRVU 1.9) Left lumbar radiculopathy 05/08/2024 10:30 AM EDT documented as of this encounter Procedures Procedure Name Priority Date/Time Associated Diagnosis Comments DIFFERENTIAL, AUTOMATED Routine 08/13/2010 4:43 PM EDT AFP TUMOR MARKER Routine 08/13/2010 4:43 PM EDT APTT Routine 08/13/2010 4:43 PM EDT PROTHROMBIN TIME Routine 08/13/2010 4:43 PM EDT CBC (WITH DIFF) Routine 08/13/2010 4:43 PM EDT TSH Routine 08/13/2010 4:43 PM EDT LIPID PANEL (REFLEX DIRECT LDL) Routine 08/13/2010 4:43 PM EDT COMPREHENSIVE METABOLIC PANEL (NON-FASTING) Routine 08/13/2010 4:43 PM EDT documented in this encounter Results * AFP TUMOR MARKER (08/13/2010 4:43 PM EDT) AFP 3 <=19 ng/mL [facility] Blood specimen (specimen) 08/13/2010 4:43 PM EDT 08/14/2010 8:17 AM EDT Lorna Perez MD CHEMISTRY ORDERABLES [facility] * TSH (08/13/2010 4:43 PM EDT) Pathologist [facility] TSH 1.28 0.27 - 4.20 mcIU/mL [facility] Comment: [place] Cord Blood Reference Range: ??0.35 23.00 uIU/mL Blood specimen (specimen) 08/13/2010 4:43 PM EDT 08/13/2010 5:10 PM EDT Lorna Perez MD CHEMISTRY ORDERABLES [facility] * (ABNORMAL) LIPID PANEL (08/13/2010 4:43 PM EDT) Pathologist [facility] Chol, Total 229(H) <=199 mg/dL [facility] Comment: Recommendations of the NCEP Adult Treatment Panel for the following risk cutoff thresholds for the [place] population: Desirable: <200 mg/dL Borderline High: 200-239 mg/dL High: > or = 240 mg/dL Triglycerides 291(H) <=149 mg/dL [facility] Comment: Reference Range: Normal triglycerides: ??<150 mg/dL Borderline high: ??150-199 mg/dL High: ??200-499 mg/dL Very high: ??>la=225 mg/dL PIPPA 2001; 285(19):4055-8349 HDL 50 >=40 mg/dL KAREN STUBBSIUM Comment: Reference range: ??Low HDL: ?? < 40 mg/dL ??Normal: ?40-60 mg/dL ??Desirable: > 60 mg/dL PIPPA 2001; 285(19):0434-2711 LDL Cholesterol 121(H) <=99 mg/dL KAREN STUBBSIUM Comment: Reference range: ?? Optimal: ?<100 mg/dL ?? Near Optimal/Above Optimal: ?? 100-129 mg/dL ?? Borderline high: ?130-159 mg/dL ?? High: ? 160-189 mg/dL ?? Very high: ?>st=045 mg/dL PIPPA 2001: 285(19):1995-7655 Chol/HDL Ratio 4.6 ratio LENAASHELY Yolanda HERNANDEZ Comment: A Cholesterol to HDL ratio below 4:1 is desirable. ??Studies suggest that increased CAD risk occurs at ratios above 5 for females and above 6 for men. ? [place] [employer] Association ??(http://www.americanheart.org) ? Deja Int Med, 1994; 121:641 ? AM J Med, 1998; 105(1A):48S Fasting? No LENAJAVID FRYJO ANNYONATAN Blood specimen (specimen) 08/13/2010 4:43 PM EDT 08/13/2010 5:10 PM EDT Lorna Perez MD CHEMISTRY ORDERABLES [facility] * (ABNORMAL) COMPREHENSIVE METABOLIC PANEL (NON-FASTING) (08/13/2010 4:43 PM EDT) Glucose Lvl 126 <=199 mg/dL KAREN ANGJO ANNIUM Comment:Diabetes: >=200 mg/d L plus symptoms BUN 15 8 - 18 mg/dL CERNER MILLENNIUM Creatinine 0.43(L) 0.70 - 1.20 mg/dL CERNER MILLENNIUM Sodium 141 135 - 145 mmol/L CERNER MILLENNIUM Potassium 3.4(L) 3.5 - 5.0 mmol/L CERNER MILLENNIUM Comment: Please note: ??Patients with WBC >100,000 may have falsely elevated Potassium levels. ??For accurate Potassium quantification in these patients send serum separator tube (gold top) for subsequent determinations. ??Contact the Clinical Chemistry Laboratory if there are any questions. Chloride 101 98 - 107 mmol/L CERNER MILLENNIUM CO2 28 22 - 31 mmol/L CERNER MILLENNIUM Anion Gap 12 5 - 15 mmol/L CERNER MILLENNIUM Calcium 9.5 8.5 - 10.5 mg/dL CERNER MILLENNIUM Total Protein 7.6 6.4 - 8.3 gm/dL CERNER MILLENNIUM Albumin 4.3 3.2 - 5.2 gm/dL CERNER MILLENNIUM AST 45(H) 0 - 30 unit/L CERNER MILLENNIUM ALT 39(H) 0 - 30 unit/L CERNER MILLENNIUM Alk Phos 107(H) 40 - 104 unit/L CERNER MILLENNIUM Total Bilirubin 0.3 0.2 - 1.3 mg/dL CERNER MILLENNIUM Bili, Direct 0.1 0.0 - 0.3 mg/dL CERNER MILLENNIUM Estimated GFR >60 >=60 CERNER MILLENNIUM Comment: The National Kidney Disease Education Program (NKDEP) has recommended all laboratories report estimated GFR (eGFR) along with plasma creatinine measurements to assist you with recognition of early kidney disease. Caveats: ??Plasma creatinine should be at steady-state (unchanged within the past week). ??Patient age > = 18 years, and for Americans multiply eGFR by 1.2. At present, NKDEP does NOT recommend using the MDRD equation for drug dosing purposes and pharmacists should continue to use their current dosing methods. In addition, numerical eGFR values greater than 60 ml/min/1.73 square meters should be treated as > 60, and not an exact number due to greater inaccuracies at these higher values. Per NKDEP, they classify normal renal function as any GFR >60ml/min/1.73 square meters; chronic kidney disease when GFR <60, and renal failure when GFR <15. ??This calculation may not be valid for patients with atypical muscle mass (very lean or obese), acute renal failure, and in patients with diabetic kidney disease. References: http://nkdep.nih.gov/resources/NKDEP_Suggestn4Labs_0606_508.pdf http://www.kidney.org/professionals/kls/pdf/faq_gfr.pdf Blood specimen (specimen) 08/13/2010 4:43 PM EDT 08/13/2010 5:10 PM EDT Lorna Perez MD CHEMISTRY ORDERABLES Performing Organization Address [facility] Phone Number Zuu OnlnineI[facility] * APTT (08/13/2010 4:43 PM EDT) PTT 30 25 - 37 sec CERNER MILLENNIUM Comment: Recommended therapeutic PTT range for full dose unfractionated heparin is 80-114 seconds. Blood specimen (specimen) 08/13/2010 4:43 PM EDT 08/13/2010 5:10 PM EDT Lorna Perez MD HEMATOLOGY ORDERABLE S Performing Organization Address [facility] Phone Number [facility] On[facility] * PROTIME-INR (08/13/2010 4:43 PM EDT) PT 14.8 11.8 - 15.0 sec CERNER MILLENNIUM Comment: [facility] Transfusion Committee Guidelines: INR less than 2.0, PTT less than OR equal to 43.5 seconds, or Fibrinogen greater than or equal to 100 mg/dl indicate adequate procoagulant activity for hemostasis in patients without underlying bleeding disorders. INR 1.1 0.9 - 1.1 CERNER MILLENNIUM Blood specimen (specimen) 08/13/2010 4:43 PM EDT 08/13/2010 5:10 PM EDT Lorna Perez MD HEMATOLOGY ORDERABLE S Performing Organization Address [facility]/ZIP Co de Phone Number KAREN HERNANDEZ * REFLEX LAB-A-DIFF (08/13/2010 4:43 PM EDT) Neutrophils % 54.1 34.0 - 71.0 % CERNER MILLENNIUM Neutr Abs (ANC) 4.51 1.50 - 6.30 x10(3)/mcL CERNER MILLENNIUM Lymphocytes % 36.5 19.0 - 53.0 % CERNER MILLENNIUM Lymphocytes Abs 3.1 1.0 - 3.6 x10(3)/mcL CERNER MILLENNIUM Monocytes % 7.4 4.0 - 13.0 % CERNER MILLENNIUM Monocyte Abs 0.6 0.2 - 1.0 x10(3)/mcL CERNER MILLENNIUM Eosinophils % 1.4 0.0 - 7.0 % CERNER MILLENNIUM Eosinophils Abs 0.1 0.0 - 0.5 x10(3)/mcL CERNER MILLENNIUM Basophils % 0.4 0.0 - 2.0 % CERNER MILLENNIUM Basophils Abs 0.0 0.0 - 0.2 x10(3)/mcL CERNER MILLENNIUM Immature Gran % 0.20 0.00 - 0.66 % CERNER MILLENNIUM Comment: Immature granulocytes(IG's)percentage and absolute count will include metamyelocytes, myelocytes, and promyelocytes. Blood smears from CBC's yielding IG's will be scanned manually for concordance. If this scan disagrees with the automated IG or if promyelocytes are noted, a manual differential will be performed. Anya Gran Abs 0.02 0.00 - 0.05 x10(3)/mcL CERNER MILLENNIUM Blood specimen (specimen) 08/13/2010 4:43 PM EDT 08/13/2010 5:10 PM EDT Lorna Perez MD HEMATOLOGY ORDERABLE S KAREN HERNANDEZ * CBC (08/13/2010 4:43 PM EDT) WBC 8.4 4.0 - 10.0 x10(3)/mcL CERNER MILLENNIUM RBC 4.10 3.93 - 5.22 x10(6)/mcL CERNER MILLENNIUM Hemoglobin 12.1 11.2 - 15.7 gm/dL CERNER MILLENNIUM Hematocrit 37.0 34.0 - 45.0 % CERNER MILLENNIUM MCV 90.2 79.0 - 94.0 fL CERNER MILLENNIUM MCH 29.5 26.6 - 32.2 pg CERNER MILLENNIUM MCHC 32.7 32.0 - 36.5 gm/dL CERNER MILLENNIUM Platelets 206 145 - 370 x10(3)/mcL CERNER MILLENNIUM RDWSD 43.4 35.0 - 46.0 fL CERNER MILLENNIUM RDWCV 13.2 10.9 - 14.4 % CERNER MILLENNIUM MPV 10.7 9.0 - 12.0 fL CERNER MILLENNIUM Blood specimen (specimen) 08/13/2010 4:43 PM EDT 08/13/2010 5:10 PM EDT Lorna Perez MD HEMATOLOGY ORDERABLE S KAREN HERNANDEZ documented in this encounter Visit Diagnoses Not on filedocumented in this encounter Care Teams Client Customer Manager Relationship Specialty Start Date End Date Immanuel Jorge MD [address] [facility] [address] [place] [address] PCP - General 09/02/10 05/05/11 documented as of this encounter
--- OUTSIDE RECORDS SUMMARY | 2024-05-02 12:15 | XMS_ITS | Encounter Summary ---
Author Organization [facility] [place] [address] Care Team Providers Care Flight Radio Operator Name Role Phone Unavailable Primary Care Provider Unavailabl e Encounter Details Date Type Department Care Team (Late st Contact Info) Description 11/07/2009 Ancillary Procedure [place] [phone] Amy Herring MD [facility] [place] [address] Social History Tobacco Use Types Packs/Day Years Used Date Smoking Tobacco: Never Assessed Sex and Gender Information Value Date Recorded Sex Assigned at Not on file Gender Identity Not on file Sexual Orientation Not on file documented as of this encounter Plan of Treatment Upcoming Encounters Date Type Department Care Team (Latest Contact Info) Description 05/08/2024 10:30 AM EDT Hospital En[place] [phone] Bk Contreras MD [facility] [place] [address] 05/08/2024 10:30 AM EDT - 05/08/2024 11:00 AM EDT Surgery [place] [address] Bk Contreras MD [facility] [place] [place] [address] INJECTION, ANESTHETIC AGENT AND/OR STEROID, TRANSFORAMINAL EPIDURAL, LUMBAR OR SACRAL, SINGLE LEVEL (WRVU 1.9) 05/12/2024 1:00 PM EDT Office Visit Cardiology at [address] [phone] Sadi Styles MD [facility] [place] [address] 05/29/2024 10:15 AM EDT TH Visit (TeleHealth) [place] [phone] Natalee Sanchez APRN [facility] [place] [address] Scheduled Procedures Name Priority Associated Diagnoses Date/Ti me INJECTION, ANESTHETIC AGENT AND/OR STEROID, TRANSFORAMINAL EPIDURAL, LUMBAR OR SACRAL, SINGLE LEVEL (WRVU 1.9) Left lumbar radiculopathy 05/08/2024 10:30 AM EDT documented as of this encounter Procedures Procedure Name Priority Date/Time Associated Diagnosis Comments FILM LIBRARY STORAGE ONLY MR FOOT Routine 11/07/2009 12:00 AM EST documented in this encounter Results * Film Library- Storage Only MR Foot (11/07/2009 12:00 AM EST) Narrative [facility] - 08/26/2023 9:55 PM EST This exam is auto-finalizing. It's purpose is for storage only. Amy Herring MD G FILM LIBRARY ORD ERABLES [place], [place] documented in this encounter Visit Diagnoses Not on filedocumented in this encounter
--- OUTSIDE RECORDS SUMMARY | 2024-05-02 12:15 | XMS_ITS | Encounter Summary ---
Author Organization [facility] [place] [address] Care Team Providers Care Loader Magazine Grinder Name Role Phone Mauro Phelps MD Primary Care Provider Encounter Details Date Type Department Care Team (Late st Contact Info) Description 05/14/2014 Abstract Cardiology at [address] [address] Luisa Cassidy RN Social History Tobacco Use Types Packs/Day [...] 10:30 AM EDT Hospital Encounter [place] [address] Bk Contreras MD [facility] [place] [address] 05/08/2024 10:30 AM EDT - 05/08/2024 11:00 AM EDT Surgery Pain Management [facility] [place] [facility] [place] [address] Bk Contreras MD [facility] [place] [address] INJECTION, ANESTHETIC AGENT AND/OR STEROID, TRANSFORAMINAL EPIDURAL, LUMBAR OR SACRAL, SINGLE LEVEL (WRVU 1.9) 05/12/2024 1:00 PM EDT Office Visit Cardiology at [address] Sadi Styles MD [facility] [place] [address] 05/29/2024 10:15 AM EDT TH Visit (TeleHealth) [facility] Sp[facility] at [place] [phone] Natalee Sanchez, KURTIS [facility] [address] Scheduled Procedures Name Priority Associated Diagnoses Date/Ti me INJECTION, ANESTHETIC AGENT AND/OR STEROID, TRANSFORAMINAL EPIDURAL, LUMBAR OR SACRAL, SINGLE LEVEL (WRVU 1.9) Left lumbar radiculopathy 05/08/2024 10:30 AM EDT documented as of this encounter Visit Diagnoses Not on filedocumented in this encounter Care Teams Loader Magazine Grinder Relationship Specialty Start Date End Date Mauro Phelps MD PCP - General 05/08/14 10/10/19 documented as of this encounter
--- OUTSIDE RECORDS SUMMARY | 2024-05-02 12:15 | XMS_ITS | Encounter Summary ---
[place] [address] Care Team Providers Care Lining Stitcher Name Role Phone Chris Burgos MD Primary Care Provider [phone] Reason for Visit * Reason Onset Date Comments Medication Refill 11/09/2011 Encounter Details Date Type Department Care Team (Late st Contact Info) Description 11/09/2011 Refill [place] [address] Pablo Fletcher MD [facility] [place] [address] GERD (gastroesophageal reflux disease) Social History Tobacco Use Types Packs/Day [...] encounter Miscellaneous Notes * Telephone Encounter - Opal Jeffrey RN - 11/09/2011 4:50 PM EST Christian Shah had an order for Prevacid ordered by Dr Perez in March,. Pt said that she could not get the Prevacid and took Pantoprazole instead. I discontinued the Prevacid when I wrote the script for Pantoprazole. (I think she had an old record in [facility] that had some information in it.) ThanksOpal * Telephone Encounter - Pablo Fletcher - 11/09/2011 4:02 PM EST Opal, Do you know the reason Ms. Howard is on a PPI? I couldn't find the indication in Dr. Perez's note. Thanks Pablo documented in this encounter Plan of Treatment Upcoming Encounters Date Type Department Care Team (Latest Contact Info) Description 05/08/2024 10:30 AM EDT Hospital [place] [phone] Bk Contreras MD [facility] [place] [address] 05/08/2024 10:30 AM EDT - 05/08/2024 11:00 AM EDT Surgery Pain Management [place] [phone] Bk Contreras MD [facility] [place] [address] INJECTION, ANESTHETIC AGENT AND/OR STEROID, TRANSFORAMINAL EPIDURAL, LUMBAR OR SACRAL, SINGLE LEVEL (WRVU 1.9) 05/12/2024 1:00 PM EDT Office Visit Cardiology at [address] [phone] Sadi Styles MD [facility] [place] [address] 05/29/2024 10:15 AM EDT TH Visit (TeleHealth) [place] [phone] Natalee Sanchez, CLOTH SHEARER [facility] [place] [place] [address] Scheduled Procedures Name Priority Associated Diagnoses Date/Ti me INJECTION, ANESTHETIC AGENT AND/OR STEROID, TRANSFORAMINAL EPIDURAL, LUMBAR OR SACRAL, SINGLE LEVEL (WRVU 1.9) Left lumbar radiculopathy 05/08/2024 10:30 AM EDT documented as of this encounter Visit Diagnoses Diagnosis GERD (gastroesophageal reflux disease) Esophageal reflux Left lumbar radiculopathy Thoracic or lumbosacral neuritis or radiculitis, unspecified documented in this encounter Care Teams Lining Stitcher Relationship Specialty Start Date End Date Chris Burgos MD PCP - General 05/06/11 05/07/14 documented as of this encounter
--- OUTSIDE RECORDS SUMMARY | 2024-05-02 12:15 | XMS_ITS | Encounter Summary ---
Author Organization [facility] [place] [address] Care Team Providers Care Climatology Teacher Name Role Phone Chris Burgos MD Primary Care Provider [phone] Encounter Details Date Type Department Care Team (Late st Contact Info) Description 01/14/2012 4:30 PM EDT [place] [phone] Lorna Perez MD [facility] DR GASTROENTER[place] [address] Cirrhosis (Primary Dx) Discharge Disposition: Home Social History Tobacco Use [...] Sign Reading Time Taken Comments Blood Pressure 125/70 01/14/2012 4:38 PM EDT Pulse 88 01/14/2012 4:38 PM EDT Temperature - - Respiratory Rate - - Oxygen Saturation - - Inhaled Oxygen Concentration - - Weight 81.2 kg (179 lb) 01/14/2012 4:38 PM EDT Height - - Body Mass Index 31.71 05/25/2011 3:52 PM EDT documented in this encounter Progress Notes * Yann Dee MD - 02/02/2012 10:09 AM EDT I was the attending physician supervising Dr Perez in the above care. For the purposes of billing, the fellow provided the care. 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: steatohepatitis with evidence of cirrhosis - Esophageal varices: NONE. EGD 09/17 with no varices small esophageal stricture dilated at that time EGD 01/2010: No varices. - HCC screening Negative 08/2010 AFP 3 negative 11/19 (negative US and AFP 4) negative 09/18 (US AFP 3) #type 2 diabetes mellitus: 6.4 (07/20) #hypercholesterolemia #obesity #hypertension #depression #chronic constipation - Colonoscopy: in 2007. Sigmoid tics. Difficulty to get through but able to with pedi scope. Done at [place]. HPI: The patient is a 56 y/o female with a history of Child's A SIMMONS cirrhosis (by biopsy) who returns to the [facility] GI clinic for her scheduled follow-up visit. She reports that she had had a lot of stress. She is her . Her blood sugars have been fine - but recently her readings have been in the 150s used to be in [id number]. She is eating well. She is exercising. ROS: No fever No vomiting or nausea. No hematemesis, melena or hematochezia. No changes wit abdominal girth. No LE edema. Rest negative. MEDICATION: Reviewed. Takes ibuprofen (600mg) at night - about 4 of 7 days. She takes protonix. REVIEW OF SYSTEMS: Constitutional: No fever or chills. No sweats. Integument: denies rash Cardiovascular: denies chest pain or palpitations. Respiratory: denies cough GI/Hepatic: see HPI. Left ankle pain. No diarrhea. Occasional constipation - improved with diet and exercise. No blood in stool. No change in stool caliber. Nigh time pain in her feet - on lyrica. Mild leg swelling resolves with elevation. PHYSICAL EXAM: BP 125/70 Pulse 88 Wt 81.194 kg (179 lb) GEN: Alert, cooperative and pleasant. Appears well. obese. HEENT: Anicteric sclera, conjunctiva pink, MMM, OP clear without exudate LUNGS:CTA bilaterally CARD: RRR, no murmurs. ABD: Abdomen soft, obese, non-tender to palaption, NBS. +telangiectasias across her chest. EXT: No edema. +palmar erythema. NEURO: No asterixis. LABS: none ASSESSMENT AND PLAN: Ms Howard is a very pleasant 56 year-old female with a history of Child's A SIMMONS cirrhosis who returns to the GI clinic this morning for her scheduled follow-up visit. She is very well compensated. Her DM is in good control. Currently she is going through a divorce, but she is adjusting well. - HCC screening with US and AFP. Will aim to do her next US the day of her visit. - Check Cbc, Lfts, BMP, Coags. - decrease ibuprofen use. Ok to alternate with tylenol (must observe 4g limit per day) - I encouraged her to call me with any questions or concerns. Follow up in 6months. Mustapha Perez MD Fellow, [facility] Gastroenterology and Hepatology documented in this encounter Plan of Treatment Upcoming Encounters Date Type Department Care Team (Latest Contact Info) Description 05/08/2024 10:30 AM EDT Hospital Encounter [place] [address] Bk Contreras MD [facility] [place] [address] 05/08/2024 10:30 AM EDT - 05/08/2024 11:00 AM EDT Surgery [place] [address] Bk Contreras MD [facility] [place] [address] INJECTION, ANESTHETIC AGENT AND/OR STEROID, TRANSFORAMINAL EPIDURAL, LUMBAR OR SACRAL, SINGLE LEVEL (WRVU 1.9) 05/12/2024 1:00 PM EDT Office Visit Cardiology at [address] [phone] Sadi Styles MD [facility] [place] [address] 05/29/2024 10:15 AM EDT TH Visit (TeleHealth) [place] [phone] Natalee Sanchez APRN [facility] [place] [address] Scheduled Procedures Name Priority Associated Diagnoses Date/Ti me INJECTION, ANESTHETIC AGENT AND/OR STEROID, TRANSFORAMINAL EPIDURAL, LUMBAR OR SACRAL, SINGLE LEVEL (WRVU 1.9) Left lumbar radiculopathy 05/08/2024 10:30 AM EDT documented as of this encounter Procedures Procedure Name Priority Date/Time Associated Diagnosis Comments DIFFERENTIAL, AUTOMATED Routine 01/14/2012 5:27 PM EDT AFP TUMOR MARKER Routine 01/14/2012 5:27 PM EDT Cirrhosis PROTHROMBIN TIME Routine 01/14/2012 5:27 PM EDT Cirrhosis CBC (WITH DIFF) Routine 01/14/2012 5:27 PM EDT Cirrhosis HEPATIC FUNCTION PANEL Routine 01/14/2012 5:27 PM EDT Cirrhosis BASIC METABOLIC PANEL (NON-FASTING) Routine 01/14/2012 5:27 PM EDT Cirrhosis documented in this encounter Results * DIFFERENTIAL, AUTOMATED (01/14/2012 5:27 PM EDT) Neutrophils % 57.2 34.0 - 71.0 % CERNER MILLENNIUM Neutr Abs (ANC) 5.57 1.50 - 6.30 x10(3)/mcL CERNER MILLENNIUM Lymphocytes % 34.4 19.0 - 53.0 % CERNER MILLENNIUM Lymphocytes Abs 3.4 1.0 - 3.6 x10(3)/mcL CERNER MILLENNIUM Monocytes % 7.2 4.0 - 13.0 % CERNER MILLENNIUM Monocyte Abs 0.7 0.2 - 1.0 x10(3)/mcL CERNER MILLENNIUM Eosinophils % 0.8 0.0 - 7.0 % CERNER MILLENNIUM Eosinophils Abs 0.1 0.0 - 0.5 x10(3)/mcL CERNER MILLENNIUM Basophils % 0.2 0.0 - 2.0 % CERNER MILLENNIUM Basophils [...] 0.05 x10(3)/mcL CERNER MILLENNIUM Blood specimen (specimen) 01/14/2012 5:27 PM EDT 01/14/2012 5:36 PM EDT Yann Dee MD HEMATOLOGY ORDERABLE S KAREN STUBBSIUM * AFP tumor marker (01/14/2012 5:27 PM EDT) AFP 3 <=19 ng/mL CERNER MILLENNIUM Blood specimen (specimen) 01/14/2012 5:27 PM EDT 01/15/2012 8:28 AM EDT Narrative Resulting Agency Comment Spec In Lab Yann Dee MD CHEMISTRY ORDERABLES CERNER MILLENNIUM * (ABNORMAL) Basic Metabolic Panel (non-fasting) (01/14/2012 5:27 PM EDT) Glucose Lvl 95 60 - 199 mg/dL CERNER MILLENNIUM Comment:Diabetes: >=200 mg/d L plus symptoms BUN 15 8 - 18 mg/dL CERNER MILLENNIUM Creatinine 0.65(L) 0.70 - 1.20 mg/dL CERNER MILLENNIUM Sodium 142 135 - 145 mmol/L CERNER MILLENNIUM Potassium 3.2(L) 3.5 - 5.0 mmol/L CERNER MILLENNIUM Comment: Please note: ??Patients with WBC >100,000 may have falsely elevated Potassium levels. ??For accurate Potassium quantification in these patients send serum separator tube (gold top) for subsequent determinations. ??Contact the Clinical Chemistry Laboratory if there are any questions. Chloride 99 98 - 107 mmol/L CERNER MILLENNIUM CO2 29 22 - 31 mmol/L CERNER MILLENNIUM Anion Gap 14 5 - 15 mmol/L CERNER MILLENNIUM Calcium 10.1 8.5 - 10.5 mg/dL CERNER MILLENNIUM Estimated GFR >60 >=60 CERNER MILLENNIUM Comment: The National Kidney Disease Education Program (NKDEP) has recommended all laboratories report estimated GFR (eGFR) along with plasma creatinine measurements to assist you with recognition of early kidney disease. Caveats: ??Plasma creatinine should be at steady-state (unchanged within the past week). For patients multiply eGFR by 1.2. The MDRD equation was developed using patients between the ages of 18 and 70 years. ?? The MDRD equation has not been validated for patients < 18 years of age and should not be used to assess renal function in the pediatric population. ??The MDRD eGFR equation will also overestimate the true GFR of patients above the age of 70. ??This overestimation is variable but increases with age. At present, NKDEP does NOT recommend using [...] with diabetic kidney disease. References: http://nkdep.nih.gov/resources/NKDEP_Suggestn4Labs_0606_508.pdf http://www.kidney.org/professionals/kls/pdf/faq_gfr.pdf Sanjay K, Willian NA, Iwona AK, Bam TS, Brandyn AD, Britni ARCENIO. Relative performance of the MDRD and CKD-EPI equations for estimating glomerular filtration rate among patients with varied clinical presentations. Clin J Am Soc Nephrol;6:1963-72. Blood specimen (specimen) 01/14/2012 5:27 PM EDT 01/14/2012 5:36 PM EDT Narrative Resulting Agency Comment Spec In Lab Yann Dee MD [facility]STRY ORDERABLES [facility] * CBC (with Diff) (01/14/2012 5:27 PM EDT) WBC 9.7 4.0 - 10.0 x10(3)/mcL CERNER MILLENNIUM RBC 4.28 3.93 - 5.22 x10(6)/mcL CERNER MILLENNIUM Hemoglobin 12.9 11.2 - 15.7 gm/dL CERNER MILLENNIUM Hematocrit 37.7 34.0 - 45.0 % CERNER MILLENNIUM MCV 88.1 79.0 - 94.0 fL CERNER MILLENNIUM MCH 30.1 26.6 - 32.2 pg CERNER MILLENNIUM MCHC 34.2 32.0 - 36.5 gm/dL CERNER MILLENNIUM Platelets 214 145 - 370 x10(3)/mcL CERNER MILLENNIUM RDWSD 42.4 35.0 - 46.0 fL CERNER MILLENNIUM RDWCV 13.2 10.9 - 14.4 % CERNER MILLENNIUM MPV 10.5 9.0 - 12.0 fL CERNER MILLENNIUM Blood specimen (specimen) 01/14/2012 5:27 PM EDT 01/14/2012 5:36 PM EDT Narrative Resulting Agency Comment Spec In Lab Yann Dee MD HEMATOLOGY ORDERABLE S Performing Organization Address [facility] de Phone Number KAREN FRYENNIUM * Prothrombin Time (01/14/2012 5:27 PM EDT) PT 14.6 11.9 - 14.7 sec CERNER MILLENNIUM Comment: [facility] Transfusion Committee Guidelines: INR less than 2.0, PTT less than OR equal to 43.5 seconds, or Fibrinogen greater than or equal to 100 mg/dl indicate adequate procoagulant activity for hemostasis in patients without underlying bleeding disorders. INR 1.1 0.9 - 1.1 CERNER MILLENNIUM Blood specimen (specimen) 01/14/2012 5:27 PM EDT 01/14/2012 5:36 PM EDT Narrative Resulting Agency Comment Spec In Lab Yann Dee MD HEMATOLOGY ORDERABLE S Performing Organization Address [facility] Phone Number KAREN STUBBSIUM * (ABNORMAL) Hepatic Function Panel (01/14/2012 5:27 PM EDT) Total Protein 8.4(H) 6.4 - 8.3 gm/dL CERNER MILLENNIUM Albumin 4.4 3.2 - 5.2 gm/dL CERNER MILLENNIUM AST 19 0 - 30 unit/L CERNER MILLENNIUM ALT 18 0 - 30 unit/L CERNER MILLENNIUM Alk Phos 87 40 - 104 unit/L CERNER MILLENNIUM Total Bilirubin 0.6 0.2 - 1.3 mg/dL CERNER MILLENNIUM Bili, Direct 0.1 0.0 - 0.3 mg/dL CERNER MILLENNIUM Blood specimen (specimen) 01/14/2012 5:27 PM EDT 01/14/2012 5:36 PM EDT Narrative Resulting Agency Comment Spec In Lab Yann Dee MD CHEMISTRY ORDERABLES [facility] [employer] documented in this encounter Visit Diagnoses Diagnosis Cirrhosis- Primary Cirrhosis of liver without mention of alcohol Left lumbar radiculopathy Thoracic or lumbosacral neuritis or radiculitis, unspecified documented in this encounter Care Teams Climatology Teacher Relationship Specialty Start Date End Date Chris Burgos MD PCP - General 05/06/11 05/07/14 documented as of this encounter
--- OUTSIDE RECORDS SUMMARY | 2024-05-02 12:15 | XMS_ITS | Encounter Summary ---
Author Organization [facility] [place] [address] Care Team Providers Care Marine Fisheries Technician Name Role Phone Unavailable Primary Care Provider Unavailabl e Encounter Details Date Type Department Care Team (Late st Contact Info) Description 08/13/2010 4:00 PM EDT [place] [phone] Lorna Perez MD [facility] [place] [address] Social History Tobacco Use Types Packs/Day Years Used Date Smoking Tobacco: Never Assessed Sex and Gender Information Value Date Recorded Sex Assigned at Not on file Gender Identity Not on file Sexual Orientation Not on file documented as of this encounter Plan of Treatment Upcoming Encounters Date Type Department Care Team (Latest Contact Info) Description 05/08/2024 10:30 AM EDT Hospital Encounter [place] [phone] Bk Contreras MD [facility] [place] [address] 05/08/2024 10:30 AM EDT - 05/08/2024 11:00 AM EDT Surgery [place] [address] Bk Contreras MD [facility] [place] [address] INJECTION, ANESTHETIC AGENT AND/OR STEROID, TRANSFORAMINAL EPIDURAL, LUMBAR OR SACRAL, SINGLE LEVEL (WRVU 1.9) 05/12/2024 1:00 PM EDT Office Visit Cardiology at [place] [phone] Sadi Styles MD [facility] [place] [address] 05/29/2024 10:15 AM EDT TH Visit (TeleHealth) [facility] and Sp[facility] Center at [place] [phone] Natalee Sanchez, [place] [facility] [place] [address] Scheduled Procedures Name Priority Associated Diagnoses Date/Ti me INJECTION, ANESTHETIC AGENT AND/OR STEROID, TRANSFORAMINAL EPIDURAL, LUMBAR OR SACRAL, SINGLE LEVEL (WRVU 1.9) Left lumbar radiculopathy 05/08/2024 10:30 AM EDT documented as of this encounter Visit Diagnoses Not on filedocumented in this encounter
--- OUTSIDE RECORDS SUMMARY | 2024-05-02 12:15 | XMS_ITS | Encounter Summary ---
Author Organization [facility] [place] [address] Care Team Providers Care Brake Liner Name Role Phone Chris Burgos MD Primary Care Provider [phone] Reason for Visit * Reason Comments Medication Refill Encounter Details Date Type Department Care Team (Late st Contact Info) Description 04/09/2011 Refill [place] [phone] Rajesh Hernanedz MD [facility] [place] [address] GERD (gastroesophageal reflux disease) Social History Tobacco [...] 10:30 AM EDT Hospital Encounter [place] [phone] Bk Contreras MD [facility] [place] [address] 05/08/2024 10:30 AM EDT - 05/08/2024 11:00 AM EDT [place] [address] Bk Contreras MD [facility] [place] [address] INJECTION, ANESTHETIC AGENT AND/OR STEROID, TRANSFORAMINAL EPIDURAL, LUMBAR OR SACRAL, SINGLE LEVEL (WRVU 1.9) 05/12/2024 1:00 PM EDT Office [place] [phone] Sadi Styles MD [facility] [place] [address] 05/29/2024 10:15 AM EDT TH Visit (TeleHealth) [facility] [place] [phone] Natalee Sanchez APRN [facility] [place] [address] Scheduled Procedures Name Priority Associated Diagnoses Date/Ti me INJECTION, ANESTHETIC AGENT AND/OR STEROID, TRANSFORAMINAL EPIDURAL, LUMBAR OR SACRAL, SINGLE LEVEL (WRVU 1.9) Left lumbar radiculopathy 05/08/2024 10:30 AM EDT documented as of this encounter Visit Diagnoses Diagnosis GERD (gastroesophageal reflux disease) Esophageal reflux Left lumbar radiculopathy Thoracic or lumbosacral neuritis or radiculitis, unspecified documented in this encounter Care Teams Brake Liner Relationship Specialty Start Date End Date Chris Burgos MD PCP - General 05/06/11 05/07/14 documented as of this encounter
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
--- OUTSIDE RECORDS SUMMARY | 2024-05-02 12:15 | XMS_ITS | Encounter Summary ---
Author Organization [facility] [place] [address] Care Team Providers Care Professor Of Literature Name Role Phone Bryan Phelps MD Primary Care Provider [phone] Reason for Visit * Reason Comments Establish Care chest pain sharp, ce nter of chest; woke her from sleep; has gerd; had ett @ [facility] that was neg. Encounter Details Date Type Department Care Team (Late st Contact Info) Description 05/25/2014 2:30 PM EDT Office Visit Cardiology at [address] [phone] Ander Hong Jr., MD [address] [place] [id number] Chest pain (Primary Dx); Esophageal reflux; Hyperlipidemia Social History Tobacco Use Types Packs/Day Years [...] Sign Reading Time Taken Comments Blood Pressure 108/60 05/25/2014 2:32 PM EDT l. arm, standing Pulse 88 05/25/2014 2:29 PM EDT Temperature - - Respiratory Rate - - Oxygen Saturation - - Inhaled Oxygen Concentration - - Weight 85.3 kg (188 lb) 05/25/2014 2:29 PM EDT Height 160 cm (5' 3) 05/25/2014 2:29 PM EDT Body Mass Index 33.3 05/25/2014 2:29 PM EDT documented in this encounter Progress Notes * Ander Hong Jr., MD - 05/25/2014 3:20 PM EDT Referring PCP: BRYAN PHELPS MD Cardiology consultation History: Toyin Coley is a 59 y.o. old female seen at the request of BRYAN PHELPS MD for evaluation of chest pain. She has had burning chest pain from GERD in the past but recently has had episodes of sharper chest pain that has lasted up to hours. It usually starts at night, waking her from sleep. It may subside with sitting up or wax and wane for hours. One long episode lasted all night. Th e next day she was more tired and her troponin was borderline positive. She was admitted overnight at [facility] and ruled out. A subsequent MIBI is as below. She continues to have episodes of chest and upper epigastric discomfort at night, not with exertion during the day. She denies palpitations, edema, PND, orthopnea or DAVIS. Allergies Allergen Reactions ??? House Dust ??? Hydrocodone-Acetaminophen Itching ??? Mold Extracts ??? Propoxyphene Hcl Nausea And Vomiting ??? Unknown (Unclassified Drug) Most environmental allergies: grass, workman, trees,pollen Current Outpatient Prescriptions Medication Sig Dispense Refill ??? nitroGLYcerin (NITROSTAT) [...] 1,000 mg by mouth 2 times daily. ??? [DISCONTINUED] pregabalin (LYRICA) 75 mg capsule Take 75 mg by mouth 2 times daily. ??? [DISCONTINUED] simvastatin (ZOCOR) 40 mg tablet 40 MG = 1 Tablet(s), PO, QHS Patient Active Problem List Diagnosis ??? Hyperlipidemia Off statin due to foot pain side effect ??? Hypertension ??? Diabetes mellitus type 2, uncomplicated ??? Hx-TIA (transient ischemic attack) ??? GERD (gastroesophageal reflux disease) ??? 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 PMI not displaced. No murmur or gallop Abd: soft, no L/S/K enlargement or bruits Ext: Pulses preserved, equal bilaterally, no edema, cyanosis or clubbing Musculoskeletal: no muscle tenderness, no joint deformities Neuro: grossly nonfocal Psych: normal affect, appropriate EKG: NSR 88, narrow Q 3,F, poor R progression, no change Lab data: No recent lipids for review Assessment: 1) atypical CP- negative MIBI at good heart rate- it is extremely unlikely she has obstructive CAD or that her current symptoms are from CAD- this is all likely due to GERD. Reassured her and advisedusing anti acids and anti gas (simethicone) as necessary in addition to her PPI. If symptoms fail to improve consider further GI workup. She does have multiple risk factors for CAD and needs to continue aggressive risk factor control. 2) HTN controlled 3) lipids- goal LDL under 100 and near 70 if possible- she is adamant she can not tolerate statins-needs to work hard on diet and exercise 4) snoring and fatigue- consider sleep apnea work up Plan: 1) A discussion was held concerning the patient's chief complaints, the presumptive diagnosis(es) and the options for further evaluation and management. Reviewed the assessment above and the recommendations below in detail. 2) medical therapy continue as above 3) follow up PRN documented in this encounter Plan of Treatment Upcoming Encounters Date Type Department Care Team (Latest Contact Info) Description 05/08/2024 10:30 AM EDT Hospital [place] [phone] Bk Contreras MD [facility] [place] [address] 05/08/2024 10:30 AM EDT - 05/08/2024 11:00 AM EDT [place] [phone] Bk Contreras MD [facility] [place] [address] INJECTION, ANESTHETIC AGENT AND/OR STEROID, TRANSFORAMINAL EPIDURAL, LUMBAR OR SACRAL, SINGLE LEVEL (WRVU 1.9) 05/12/2024 1:00 PM EDT Office Visit Cardiology at [address] [phone] Sadi Styles MD [facility] [place] [address] 05/29/2024 10:15 AM EDT TH Visit (TeleHealth) [place] [address] Natalee Sanchez APRN [facility] [place] [address] Scheduled Procedures Name Priority Associated Diagnoses Date/Ti me INJECTION, ANESTHETIC AGENT AND/OR STEROID, TRANSFORAMINAL EPIDURAL, LUMBAR OR SACRAL, SINGLE LEVEL (WRVU 1.9) Left lumbar radiculopathy 05/08/2024 10:30 AM EDT documented as of this encounter Visit Diagnoses Diagnosis Chest pain- Primary Chest pain, unspecified Esophageal reflux Hyperlipidemia Other and unspecified hyperlipidemia Left lumbar radiculopathy Thoracic or lumbosacral neuritis or radiculitis, unspecified documented in this encounter Care Teams Professor Of Literature Relationship Specialty Start Date End Date Bryan Phelps MD PCP - General 05/08/14 10/10/19 documented as of this encounter
--- OUTSIDE RECORDS SUMMARY | 2024-05-02 12:15 | XMS_ITS | Encounter Summary ---
[place] [address] Care Team Providers Care Digital Strategist Name Role Phone Jeffery Asiaraafela Dunn DO Primary Care Provider [phone] Encounter Details Date Type Department Care Team (Late st Contact Info) Description 05/28/2008 [place] [phone] Beau Rm MD DIAGNOSTIC RADIOLOGY Social History Tobacco Use Types Packs/Day Years Used Date Smoking Tobacco: Never Assessed DH IPV Inpatient Questions Answer Date Recorded [...] 10:30 AM EDT Hospital [place] [phone] Bk Contreras MD [facility] [place] [address] 05/08/2024 10:30 AM EDT - 05/08/2024 11:00 AM EDT Surgery Pain Management [place] [phone] Bk Contreras MD [facility] [place] [address] INJECTION, ANESTHETIC AGENT AND/OR STEROID, TRANSFORAMINAL EPIDURAL, LUMBAR OR SACRAL, SINGLE LEVEL (WRVU 1.9) 05/12/2024 1:00 PM EDT Office Visit Cardiology at [place] [phone] Sadi Styles MD [facility] [place] [address] 05/29/2024 10:15 AM EDT TH Visit (TeleHealth) Pain and Spine Center at [place] [phone] Natalee Sanchez, UNIFIED COMMUNICATIONS ENGINEER [facility] [place] [address] Scheduled Procedures Name Priority Associated Diagnoses Date/Ti me INJECTION, ANESTHETIC AGENT AND/OR STEROID, TRANSFORAMINAL EPIDURAL, LUMBAR OR SACRAL, SINGLE LEVEL (WRVU 1.9) Left lumbar radiculopathy 05/08/2024 10:30 AM EDT documented as of this encounter Procedures Procedure Name Priority Date/Time Associated Diagnosis Comments SURGICAL PATHOLOGY REPORT Routine 05/28/2008 10:42 AM EDT documented in this encounter Results * Surgical Pathology Report (05/28/2008 10:42 AM EDT) Surgical Pathology Report [id number] ? Location: OPW The signing pathologist has (i) examined the relevant preparation(s) for the specimen(s) and (ii) rendered or confirmed the diagnosis(es). . ?Pathology Surgical Pathology Final Report Clinical Information Specimen Submitted: A - Left Breast: ??Sbx 10 gauge VAD Cores Clinical History: Suspicious calcifications on screening mammogram Clinical Diagnosis: 1 - Fibrocystic change 2 - DCIS Gross Description Specimen: ?Received in two containers. 1 - Labeled/Fixative: ??Left breast calcs, formalin. Qty/Size/Weight: ? Three cylindrical cores of martin-white and ? yellow-white, fatty and fibrofatty tissue, ranging ? from 0.4 x 0.4 cm to 3.2 x 0.4 cm. Sections/Processing : ?? Submitted in (A1). 2 - Labeled/Fixative: ??Left breast no calcs, formalin. Qty/Size/Weight: ? Multiple cylindrical cores of martin-white and ? yellow-white, fatty and fibrofatty tissue, ranging ? from 0.3 x 0.3 cm to 2.8 x 0.4 cm. Sections/Processing : ?? Submitted in (A2-A3). ??(T3) ??aje/SNS Microscopic Description Slides reviewed, microscopic description not recorded. Diagnosis Needle biopsies: ?Left breast. Diagnosis: ?Fibroadenomatous change. Microcalcifications : ??Associated with fibroadenomatous changes. CR-0 05/29/08 CCB 05/29/08 Verified by: ? Black DO, Mahogany C. ?Pathologist ?(Electronic Signature) The attending pathologist whose signature appears on this report has reviewed all diagnostic slides and has edited the gross and/or microscopic portion of the report in rendering the final pathologic diagnosis. [facility] 05/28/2008 10:4 2 AM EDT Beau Rm MD PATHOLOGY/CYTOLOGY O RDERABLES Performing Organization Address City/State/[facility] Co de Phone Number [facility] documented in this encounter Visit Diagnoses Not on filedocumented in this encounter Care Teams Digital Strategist Relationship Specialty Start Date End Date Asia Gil DO [address] [place] [address] PCP - General Family Medicine 07/09/20 documented as of this encounter
--- OUTSIDE RECORDS SUMMARY | 2024-05-02 12:15 | XMS_ITS | Encounter Summary ---
[place] [address] Care Team Providers Care Civil Technician Name Role Phone Asia Gil DO Primary Care Provider [phone] Encounter Details Date Type Department Care Team (Late st Contact Info) Description 11/12/2008 [place] [phone] Rajesh Hernandez MD GASTROENTEROLOGY Social History Tobacco Use Types Packs/Day Years [...] 10:30 AM EDT Hospital En[place] [phone] Bk Contreras MD [facility] [place] [address] 05/08/2024 10:30 AM EDT - 05/08/2024 11:00 AM EDT [place] [phone] Bk Contreras MD [facility] [place] [address] INJECTION, ANESTHETIC AGENT AND/OR STEROID, TRANSFORAMINAL EPIDURAL, LUMBAR OR SACRAL, SINGLE LEVEL (WRVU 1.9) 05/12/2024 1:00 PM EDT Office Visit Cardiology at [place] [phone] Sadi Styles MD [facility] [place] [address] 05/29/2024 10:15 AM EDT TH Visit (TeleHealth) [facility] Sp[facility] Center at [place] [phone] Natalee Sanchez APRN [facility] [place] [address] Scheduled Procedures Name Priority Associated Diagnoses Date/Ti me INJECTION, ANESTHETIC AGENT AND/OR STEROID, TRANSFORAMINAL EPIDURAL, LUMBAR OR SACRAL, SINGLE LEVEL (WRVU 1.9) Left lumbar radiculopathy 05/08/2024 10:30 AM EDT documented as of this encounter Procedures Procedure Name Priority Date/Time Associated Diagnosis Comments SURGICAL PATHOLOGY REPORT Routine 11/12/2008 6:22 AM EST documented in this encounter Results * Surgical Pathology Report (11/12/2008 6:22 AM EST) Surgical Pathology Report [id number] ? Location: OPW The signing pathologist has (i) examined the relevant preparation(s) for the specimen(s) and (ii) rendered or confirmed the diagnosis(es). . ?Pathology Surgical Pathology Final Report Clinical Information Specimen Submitted: CONSULTATION CASE A - 4 slides labeled [id number], collection date 08/30/08. [id number] Report to: [facility] Surgical Pathology [address] ??[address] Phone - [phone] Fax - [phone] Gross Description [facility]'s pathology slide(s) are reviewed. ??Refer to Diagnosis and Specimen Submitted for specific case information. For the full text of the [facility] report(s) please refer to Non-DH Documentation Pathology in the Clinical Information System (CIS). Microscopic Description Slides reviewed, microscopic description not recorded. Diagnosis CONSULTATION CASE Liver, needle biopsy ([id number], collection date 08/30/08): Cirrhotic liver parenchyma with severe macrovesicular steatosis accompanied by marked ballooning degeneration of the hepatocytes, scattered Shabana hyalines and neutrophilic infiltrate. 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 Submitted trichrome stain confirms H&E stain findings. Submitted iron stain is negative for iron deposition. Submitted PAS with diastase stain is negative for intracytoplasmic globules. CR-0 11/16/08 AAS 11/16/08 Verified by: ? Sharlene Castellano MD ?Pathologist ?(Electronic Signature) The attending pathologist whose signature appears on this report has reviewed all diagnostic slides and has edited the gross and/or microscopic portion of the report in rendering the final pathologic diagnosis. KAREN STUBBSFORMERLY [facility] 11/12/2008 6:22 AM EST Rajesh Hernandez MD PATHOLOGY/CYTOLOGY O RDERABLES KAREN STUBBSIUM documented in this encounter Visit Diagnoses Not on filedocumented in this encounter Care Teams Civil Technician Relationship Specialty Start Date End Date Asia Gil DO [address] [place] [address] PCP - General Family Medicine 07/09/20 documented as of this encounter
--- OUTSIDE RECORDS SUMMARY | 2024-05-02 12:15 | XMS_ITS | Encounter Summary ---
[place] [address] Care Team Providers Care Stone Setter Apprentice Name Role Phone Chris Burgos MD Primary Care Provider [phone] Reason for Visit * Reason Onset Date Comments Medication Refill 02/19/2012 Encounter Details Date Type Department Care Team (Late st Contact Info) Description 02/19/2012 [place] [phone] Lorna Perez MD [facility] [place] [address] GERD (gastroesophageal reflux disease) Social History Tobacco [...] 10:30 AM EDT Hospital En[place] [phone] Bk Cotnreras MD [facility] DR PAIN CLINIC [place], [place] [phone] 05/08/2024 10:30 AM EDT - 05/08/2024 11:00 AM EDT Surgery Pain Management [address] Bk Contreras MD [facility] [address] INJECTION, ANESTHETIC AGENT AND/OR STEROID, TRANSFORAMINAL EPIDURAL, LUMBAR OR SACRAL, SINGLE LEVEL (WRVU 1.9) 05/12/2024 1:00 PM EDT Office Visit Cardiology at [address] Sadi Styles MD [facility] [place] [address] 05/29/2024 10:15 AM EDT TH Visit (TeleHealth) [facility] [place] [address] Natalee Sanchez APRN [facility] [address] Scheduled Procedures Name Priority Associated Diagnoses Date/Ti me INJECTION, ANESTHETIC AGENT AND/OR STEROID, TRANSFORAMINAL EPIDURAL, LUMBAR OR SACRAL, SINGLE LEVEL (WRVU 1.9) Left lumbar radiculopathy 05/08/2024 10:30 AM EDT documented as of this encounter Visit Diagnoses Diagnosis GERD (gastroesophageal reflux disease) Esophageal reflux Left lumbar radiculopathy Thoracic or lumbosacral neuritis or radiculitis, unspecified documented in this encounter Care Teams Stone Setter Apprentice Relationship Specialty Start Date End Date Chris Burgos MD PCP - General 05/06/11 05/07/14 documented as of this encounter
--- OUTSIDE RECORDS SUMMARY | 2024-05-02 12:15 | XMS_ITS | Encounter Summary ---
Author Organization Formerly [facility] [place] [address] Care Team Providers Care Associate School Psychologist Name Role Phone Mauro Phelps MD Primary Care Provider [phone] Encounter Details Date Type Department Care Team (Late st Contact Info) Description 04/09/2016 Ancillary Procedure [place] [phone] Lucrecia Feliz MD [facility] [place] [address] Social History Tobacco Use Types Packs/Day Years [...] AM EDT Hospital Encounter Pain Management [address] [phone] Bk Contreras MD [facility] [address] 05/08/2024 10:30 AM EDT - 05/08/2024 11:00 AM EDT Surgery [place] [address] Bk Contreras MD [facility] [place] [address] INJECTION, ANESTHETIC AGENT AND/OR STEROID, TRANSFORAMINAL EPIDURAL, LUMBAR OR SACRAL, SINGLE LEVEL (WRVU 1.9) 05/12/2024 1:00 PM EDT Office Visit Cardiology at [address] [phone] Sadi Styles MD [facility] [place] [address] 05/29/2024 10:15 AM EDT TH Visit (TeleHealth) [place] [phone] Natalee Sanchez APRN [facility] [place] [address] Scheduled Procedures Name Priority Associated Diagnoses Date/Ti me INJECTION, ANESTHETIC AGENT AND/OR STEROID, TRANSFORAMINAL EPIDURAL, LUMBAR OR SACRAL, SINGLE LEVEL (WRVU 1.9) Left lumbar radiculopathy 05/08/2024 10:30 AM EDT documented as of this encounter Procedures Procedure Name Priority Date/Time Associated Diagnosis Comments FILM LIBRARY STORAGE ONLY CT CHEST Routine 04/09/2016 12:00 AM EDT documented in this encounter Results * Film Library- Storage Only CT Chest (04/09/2016 12:00 AM EDT) Narrative PRINCESS - 12/27/2020 1:26 PM EDT This exam is auto-finalizing. It's purpose is for storage only. Lucrecia Feliz MD IMG FILM LIBRARY ORD ERABLES [place], [place] documented in this encounter Visit Diagnoses Not on filedocumented in this encounter Care Teams Associate School Psychologist Relationship Specialty Start Date End Date Mauro Phelps MD PCP - General 05/08/14 10/10/19 documented as of this encounter
--- OUTSIDE RECORDS SUMMARY | 2024-05-02 12:15 | XMS_ITS | Encounter Summary ---
[place] [address] Care Team Providers Care Flake Or Shred Roll Operator Name Role Phone Immanuel Jorge MD Primary Care Provider [phone] Encounter Details Date Type Department Care Team (Late st Contact Info) Description 08/28/2010 [place] [phone] Lorna Perez MD [facility] DR [place] [address] Social History Tobacco Use Types Packs/Day Years Used Date Smoking Tobacco: Never Assessed Sex and Gender Information Value Date Recorded Sex Assigned at Not on file Gender Identity Not on file Sexual Orientation Not on file documented as of this encounter Plan of Treatment Upcoming Encounters Date Type Department Care Team (Latest Contact Info) Description 05/08/2024 10:30 AM EDT Hospital Encounter [place] [phone] Bk Contreras MD [facility] [place] [address] 05/08/2024 10:30 AM EDT - 05/08/2024 11:00 AM EDT Surgery [place] [address] Bk Contreras MD [facility] [place] [address] INJECTION, ANESTHETIC AGENT AND/OR STEROID, TRANSFORAMINAL EPIDURAL, LUMBAR OR SACRAL, SINGLE LEVEL (WRVU 1.9) 05/12/2024 1:00 PM EDT Office Visit Cardiology at [place] [phone] Sadi Styles MD [facility] [place] [address] 05/29/2024 10:15 AM EDT TH Visit (TeleHealth) [place] [address] Natalee Sanchez APRN [facility] [place] [address] Scheduled Procedures Name Priority Associated Diagnoses Date/Ti me INJECTION, ANESTHETIC AGENT AND/OR STEROID, TRANSFORAMINAL EPIDURAL, LUMBAR OR SACRAL, SINGLE LEVEL (WRVU 1.9) Left lumbar radiculopathy 05/08/2024 10:30 AM EDT documented as of this encounter Procedures Procedure Name Priority Date/Time Associated Diagnosis Comments HEPATIC FUNCTION PANEL Routine 08/28/2010 11:59 AM EST documented in this encounter Results * HEPATIC FUNCTION PANEL (08/28/2010 11:59 AM EST) Total Protein 8.0 6.4 - 8.3 gm/dL CERNER MILLENNIUM Albumin 4.6 3.2 - 5.2 gm/dL CERNER MILLENNIUM AST 27 0 - 30 unit/L CERNER MILLENNIUM ALT 28 0 - 30 unit/L CERNER MILLENNIUM Alk Phos 97 40 - 104 unit/L CERNER MILLENNIUM Total Bilirubin 0.6 0.2 - 1.3 mg/dL CERNER MILLENNIUM Bili, Direct 0.1 0.0 - 0.3 mg/dL KAREN STUBBSIUM Blood specimen (specimen) 08/28/2010 11:59 AM EST 08/28/2010 12:12 PM EST Lorna Perez MD CHEMISTRY ORDERABLES KAREN HERNANDEZ documented in this encounter Visit Diagnoses Not on filedocumented in this encounter Care Teams Flake Or Shred Roll Operator Relationship Specialty Start Date End Date Immanuel Jorge MD [facility] [address] [place] [id number] PCP - General 09/02/10 05/05/11 documented as of this encounter
--- OUTSIDE RECORDS SUMMARY | 2024-05-02 12:15 | XMS_ITS | Encounter Summary ---
Author Organization [facility] [place] [address] Care Team Providers Care Pyrometer Temperature Regulator Name Role Phone Chris Burgos MD Primary Care Provider [phone] Encounter Details Date Type Department Care Team (Late st Contact Info) Description 05/22/2011 Abstract [place] [address] Maria Eugenia Laurent RN Social History Tobacco Use Types Packs/Day [...] 10:30 AM EDT Hospital Encounter Pain Management [place] [address] Bk Contreras MD [facility] [place] [address] 05/08/2024 10:30 AM EDT - 05/08/2024 11:00 AM EDT Surgery Pain Management [place] [phone] Bk Contreras MD [facility] [place] [place] [address] INJECTION, ANESTHETIC AGENT AND/OR STEROID, TRANSFORAMINAL EPIDURAL, LUMBAR OR SACRAL, SINGLE LEVEL (WRVU 1.9) 05/12/2024 1:00 PM EDT Office Visit Cardiology at [place] [phone] Sadi Styles MD [facility] [place] [address] 05/29/2024 10:15 AM EDT TH Visit (TeleHealth) [place] [address] Natalee Sanchez APRN [facility] [place] [address] Scheduled Procedures Name Priority Associated Diagnoses Date/Ti me INJECTION, ANESTHETIC AGENT AND/OR STEROID, TRANSFORAMINAL EPIDURAL, LUMBAR OR SACRAL, SINGLE LEVEL (WRVU 1.9) Left lumbar radiculopathy 05/08/2024 10:30 AM EDT documented as of this encounter Visit Diagnoses Not on filedocumented in this encounter Care Teams Pyrometer Temperature Regulator Relationship Specialty Start Date End Date Chris Burgos MD PCP - General 05/06/11 05/07/14 documented as of this encounter
--- OUTSIDE RECORDS SUMMARY | 2024-05-02 12:15 | XMS_ITS | Encounter Summary ---
Author Organization [place] [address] Care Team Providers Care Rehabilitation Counsellor Name Role Phone Chris Burgos MD Primary Care Provider [phone] Encounter Details Date Type Department Care Team (Latest Contact Info) Description 05/25/2011 5:10 PM EDT - 05/25/2011 11:59 PM EDT Hospital [place] [phone] Yann Dee MD [facility] [place] [address] Cirrhosis Discharge Disposition: Home Social History Tobacco Use [...] Sig Dispensed Refills Start Date End Date citalopram (CELEXA) 10 mg tablet Take 10 mg by mouth daily. 05/25/2014 hydrochlorothiazide (HYDRODIURIL) 25 mg tablet Take 25 mg by mouth daily. 01/27/2021 metFORMIN (GLUCOPHAGE) 1,000 mg tablet Take 1,000 mg by mouth 2 times daily. 06/07/2020 pregabalin (LYRICA) 75 mg capsule Take 75 mg by mouth 2 times daily. 05/25/2014 lansoprazole (PREVACID) 30 mg capsuleIndications:GERD (gastroesophageal reflux disease) TAKE ONE CAPSULE BY MOUTH EVERY DAY 30 capsule 11 04/09/2011 11/09/2011 simvastatin (ZOCOR) 40 mg tablet 40 MG = 1 Tablet(s), PO, QHS 08/22/2010 05/25/2014 documented as of this encounter Plan of Treatment Upcoming Encounters Date Type Department Care Team (Latest Contact Info) Description 05/08/2024 10:30 AM EDT Hospital [place] [phone] Bk Contreras MD [facility] [place] [address] 05/08/2024 10:30 AM EDT - 05/08/2024 11:00 AM EDT [place] [phone] Bk Contreras MD [facility] [place] [address] INJECTION, ANESTHETIC AGENT AND/OR STEROID, TRANSFORAMINAL EPIDURAL, LUMBAR OR SACRAL, SINGLE LEVEL (WRVU 1.9) 05/12/2024 1:00 PM EDT Office Visit Cardiology at [address] [phone] Sadi Styles MD [facility] [place] [address] 05/29/2024 10:15 AM EDT TH Visit (TeleHealth) [place] [phone] Natalee Sanchez, SWITCHBOARD OPERATOR HELPER [facility] [place] [address] Scheduled Procedures Name Priority Associated Diagnoses Date/Ti me INJECTION, ANESTHETIC AGENT AND/OR STEROID, TRANSFORAMINAL EPIDURAL, LUMBAR OR SACRAL, SINGLE LEVEL (WRVU 1.9) Left lumbar radiculopathy 05/08/2024 10:30 AM EDT documented as of this encounter Procedures Procedure Name Priority Date/Time Associated Diagnosis Comments HEPATIC FUNCTION PANEL Routine 05/25/2011 5:43 PM EDT Cirrhosis BASIC METABOLIC PANEL (NON-FASTING) Routine 05/25/2011 5:43 PM EDT Cirrhosis DIFFERENTIAL, AUTOMATED Routine 05/25/2011 5:32 PM EDT PROTHROMBIN TIME Routine 05/25/2011 5:32 PM EDT Cirrhosis CBC (WITH DIFF) Routine 05/25/2011 5:32 PM EDT Cirrhosis documented in this encounter Results * (ABNORMAL) Hepatic Function Panel (05/25/2011 5:43 [...] PM EDT Yann Dee MD CHEMISTRY ORDERABLES [facility] * (ABNORMAL) Basic Metabolic Panel (non-fasting) (05/25/2011 [...] PM EDT Yann Dee MD CHEMISTRY ORDERABLES CERJAVID FRYENNIUM * (ABNORMAL) REFLEX LAB-A-DIFF (05/25/2011 5:32 PM EDT) Neutrophils % 53.2 34.0 - 71.0 % CERNER MILLENNIUM Neutr Abs (ANC) 5.30 1.50 - 6.30 x10(3)/mc L CERNER MILLENNIUM Lymphocytes % 38.3 19.0 - 53.0 % CERNER MILLENNIUM Lymphocytes Abs 3.8(H) 1.0 - 3.6 x10(3)/mc L CERNER MILLENNIUM Monocytes % 6.4 4.0 - 13.0 % CERNER MILLENNIUM Monocyte Abs 0.6 0.2 - 1.0 x10(3)/mc L CERNER MILLENNIUM Eosinophils % 1.6 0.0 - 7.0 % CERNER MILLENNIUM Eosinophils Abs 0.2 0.0 - 0.5 x10(3)/mc L CERNER MILLENNIUM Basophils % 0.3 0.0 - 2.0 % CERNER MILLENNIUM Basophils Abs 0.0 0.0 - 0.2 x10(3)/mc L CERNER MILLENNIUM Immature Gran % 0.20 0.00 - 0.66 % CERNER MILLENNIUM Comment: Immature granulocytes(IG's)percentage and absolute count will include metamyelocytes, myelocytes, and promyelocytes. Blood smears from CBCs yielding IG's will be scanned manually for concordance. If this scan disagrees with the automated IG or if promyelocytes are noted, a manual differential will be performed. Anya Gran Abs 0.02 0.00 - 0.05 x10(3)/mc L CERNER MILLENNIUM Blood specimen (specimen) 05/25/2011 5:32 PM EDT 05/25/2011 5:43 PM EDT Yann Dee MD HEMATOLOGY ORDERABLE S Performing Organization Address City/[facility]/ZIP Co de Phone Number CERJAVID FRYENNIUM * CBC (with Diff) (05/25/2011 5:32 PM [...] EDT Yann Dee MD HEMATOLOGY ORDERABLE S Performing Organization Address [facility] Co de Phone Number CERJAVID FRYENNIUM * Protime-INR (05/25/2011 5:32 PM EDT) PT 14.4 12.3 - 14.7 sec CERNER MILLENNIUM Comment: [facility] Transfusion Committee Guidelines: INR less than 2.0, PTT less than OR equal to 43.5 seconds, or Fibrinogen greater than or equal to 100 mg/dl indicate adequate procoagulant activity for hemostasis in patients without underlying bleeding disorders. INR 1.1 0.9 - 1.1 CERNER MILLENNIUM Blood specimen (specimen) 05/25/2011 5:32 PM EDT 05/25/2011 5:43 PM EDT Yann Dee MD HEMATOLOGY ORDERABLE S [facility] documented in this encounter Visit Diagnoses Diagnosis Cirrhosis Cirrhosis of liver without mention of alcohol Left lumbar radiculopathy Thoracic or lumbosacral neuritis or radiculitis, unspecified documented in this encounter Care Teams Rehabilitation Counsellor Relationship Specialty Start Date End Date Chris Burgos MD PCP - General 05/06/11 05/07/14 documented as of this encounter
--- OUTSIDE RECORDS SUMMARY | 2024-05-02 12:15 | XMS_ITS | Encounter Summary ---
Author Organization [facility] [place] [address] Care Team Providers Care Toolroom Helper Name Role Phone Chirs Burgos MD Primary Care Provider [phone] Encounter Details Date Type Department Care Team (Late st Contact Info) Description 02/09/2012 Ancillary Procedure [place] [phone] Amy Herring MD [facility] [place] [address] Social History Tobacco Use Types Packs/Day Years [...] 10:30 AM EDT Hospital Encounter Pain Management [facility] [phone] Bk Contreras MD [facility] [place] [place] [address] 05/08/2024 10:30 AM EDT - 05/08/2024 11:00 AM EDT [place] [phone] Bk Contreras MD [facility] [place] [address] INJECTION, ANESTHETIC AGENT AND/OR STEROID, TRANSFORAMINAL EPIDURAL, LUMBAR OR SACRAL, SINGLE LEVEL (WRVU 1.9) 05/12/2024 1:00 PM EDT Office Visit Cardiology at [place] [phone] Sadi Styles MD [facility] [place] [address] 05/29/2024 10:15 AM EDT TH Visit (TeleHealth) [place] [phone] Natalee Sanchez APRN [facility] [place] [address] Scheduled Procedures Name Priority Associated Diagnoses Date/Ti me INJECTION, ANESTHETIC AGENT AND/OR STEROID, TRANSFORAMINAL EPIDURAL, LUMBAR OR SACRAL, SINGLE LEVEL (WRVU 1.9) Left lumbar radiculopathy 05/08/2024 10:30 AM EDT documented as of this encounter Procedures Procedure Name Priority Date/Time Associated Diagnosis Comments FILM LIBRARY STORAGE ONLY DX FOOT Routine 02/09/2012 12:00 AM EDT documented in this encounter Results * Film Library- Storage Only DX Foot (02/09/2012 12:00 AM EDT) Narrative TAHIR SÁNCHEZ - 08/26/2023 9:56 PM EST This exam is auto-finalizing. It's purpose is for storage only. Amy Herring MD G FILM LIBRARY ORD ERABLES [place], [place] documented in this encounter Visit Diagnoses Not on filedocumented in this encounter Care Teams Toolroom Helper Relationship Specialty Start Date End Date Chris Burgos MD PCP - General 05/06/11 05/07/14 documented as of this encounter
--- OUTSIDE RECORDS SUMMARY | 2024-05-02 12:15 | XMS_ITS | Encounter Summary ---
Author Organization Formerly [facility] [place] [address] Care Team Providers Care Terra Cotta Mold Maker Name Role Phone Chris Burgos MD Primary Care Provider [phone] Encounter Details Date Type Department Care Team (Late st Contact Info) Description 06/26/2011 Orders [place] [phone] Lorna Perez MD [facility] [place] [address] Cirrhosis (Primary Dx) Social History Tobacco Use Types [...] AM EDT Hospital Encounter [place] [phone] Bk Contreras MD [facility] [place] [address] 05/08/2024 10:30 AM EDT - 05/08/2024 11:00 AM EDT Surgery [place] [address] Bk Contreras MD [facility] [place] [address] INJECTION, ANESTHETIC AGENT AND/OR STEROID, TRANSFORAMINAL EPIDURAL, LUMBAR OR SACRAL, SINGLE LEVEL (WRVU 1.9) 05/12/2024 1:00 PM EDT Office Visit Cardiology at [address]1000 Sadi Styles MD [facility] [place] [place] [address] 05/29/2024 10:15 AM EDT TH Visit (TeleHealth) [place] [address] Natalee Sanchez APRN [facility] [address] Scheduled Orders Name Type Priority Associated Diagnoses Orde r Schedule AFP tumor marker Lab Routine Cirrhosis Expected: 07/10/2011, Expires: 06/26/2012 Scheduled Procedures Name Priority Associated Diagnoses Date/Ti me INJECTION, ANESTHETIC AGENT AND/OR STEROID, TRANSFORAMINAL EPIDURAL, LUMBAR OR SACRAL, SINGLE LEVEL (WRVU 1.9) Left lumbar radiculopathy 05/08/2024 10:30 AM EDT documented as of this encounter Visit Diagnoses Diagnosis Cirrhosis- Primary Cirrhosis of liver without mention of alcohol Left lumbar radiculopathy Thoracic or lumbosacral neuritis or radiculitis, unspecified documented in this encounter Care Teams Terra Cotta Mold Maker Relationship Specialty Start Date End Date Chris Burgos MD PCP - General 05/06/11 05/07/14 documented as of this encounter
[2024-05-02 13:28] LABS: Uric Acid 8.2 mg/dL (2.6-6.0)
[2024-05-02 13:29] LABS: Iron 50 ug/dL (50-170); Total Iron Binding Capacity 362 ug/dL (250-450)
== END 2024-05-02 12:02 | disposition home or self-care (01) ==
LOC: LBO 12:01
PROVIDERS: PCP Student in an Organized Health Care Education/Training Program; Visit Provider Student in an Organized Health Care Education/Training Program
DX: R79.89 Other specified abnormal findings of blood chemistry (principal); K31.84 Gastroparesis; D50.0 Iron deficiency anemia secondary to blood loss (chronic); N18.9 Chronic kidney disease, unspecified; M10.9 Gout, unspecified; E88.89 Other specified metabolic disorders
CPT/HCPCS: 36415; 83540; 83550; 84550

== ENCOUNTER 2024-05-15 19:08 | Outpatient (CLI) | payer MEDICARE, SELFPAY ==
[2024-05-15 12:15] LABS: Anion Gap 11.3 mmol/L (3-11); BUN 58 mg/dL (7-18); CO2 23.7 mmol/L (21.0-32.0); CREATININE 1.8 mg/dL (0.55-1.02); Calcium 9.6 mg/dL (8.5-10.1); Chloride 102 mmol/L (98-107); Estimated GFR 29.75 (mL/min/1.73m2); Glucose 269 mg/dL (74-106); Magnesium 1.9 mg/dL (1.8-2.4); PHOSPHORUS 4.7 mg/dL (2.6-4.7); Potassium 4.4 mmol/L (3.5-5.1); Sodium 137 mmol/L (136-145)
[2024-05-19 21:45] LABS: ALT 40 U/L (14-59)
== END 2024-05-15 19:09 | disposition home or self-care (01) ==
LOC: LBO 19:08
PROVIDERS: PCP Student in an Organized Health Care Education/Training Program; Visit Provider Student in an Organized Health Care Education/Training Program
DX: N17.9 Acute kidney failure, unspecified (principal); Z91.89 Other specified personal risk factors, not elsewhere classified
CPT/HCPCS: 36415; 80048; 83735; 84100; 84460

== ENCOUNTER 2024-06-29 01:33 | Outpatient (CLI) | payer MEDICARE, SELFPAY ==
--- NOTE | 2024-06-29 07:00 | DI.DEXA_ITS ---
Exam(s) XR DEXA BONE DENSITY W/WO LUIZA EXAM: XR DEXA BONE DENSITY W/WO LUIZA CLINICAL HISTORY: eval bone density Z78.0 [employer] TECHNIQUE: Holo[employer]ukk[employer] Horizon C densitometer analysis of left hip, lumbar spine and right forearm. La teral survey image of the thoracic and lumbar spine. COMPARISON: DEXA scan 29 March 2007 FINDINGS: Lateral view of the thoracic and lumbar spine shows no evidence of compression fractures. Bone mineral density measurements of the lumbar spine correspond to a total T-score of 0.1, in the n ormal range. This represents a 9.0 percent decrease compared to 2007 Bone mineral density measurements of the left hip correspond to a total T-score of -0.9. This repre sents a 24.0 percent decrease from 2007. The femoral neck T-score is -0.4, in the normal range.. Theright forearm bone mineral density measurements correspond to a T-score of the distal 3rd of -1.7 , in the osteopenic range. The forearm was not analyzed in 2006. IMPRESSION: Normal bone mineral density of the spine and hip. Osteopenia of the forearm.
--- NOTE | 2024-06-29 11:40 | DI.MAMMO_ITS ---
Exam(s) MAMMO SCREENING EXAM: MAMMO SCREENING CLINICAL HISTORY: screening Z12.39. TECHNIQUE: Bilateral full field digital CC and MLO mammographic images were obtained with 3D tomosyn thesis and utilizing computer aided detection (CAD). COMPARISON: Prior mammograms were reviewed. FINDINGS: There has been no significant change in the appearance and distribution of the fibroglandular tissue. There are no new findings in the immediate vicinity of a biopsy marker clip in the central left breas t. There are no new spiculated masses nor malignant appearing microcalcification groups. There is no significant architectural distortion nor skin thickening-retraction. IMPRESSION: No radiographic evidence of malignancy. BI-RADS Category 1 - Negative Breast Density - Category B - Scattered areas of fibroglandular density Breast density Category C or D implies that the patient has dense breast tissue. Dense breast tissue can make it harder to find cancer on a mammogram. Dense breast tissue is also associated with an incr eased risk of breast cancer. This information about the result of the mammogram report was provided to the patient to raise their awareness. Use this report when you speak with the patient about their risks for breast cancer, which includes their family history. At that time, you may recommend additional screening tests (Ultrasoun d or MRI) as these tests may add significant information. A negative radiographic report should not delay biopsy if a dominant or clinically suspicious mass is present. Up to ten percent of cancers are not identified on mammography. A negative report may reinforce clinical impression. Adenosis and dense breasts may obscure an underlying neoplasm. False positive reports average 6 to 10%. Patient will receive a letter notifying them of these results.
== END 2024-06-29 01:53 ==
LOC: DI 01:33
PROVIDERS: PCP Student in an Organized Health Care Education/Training Program; Visit Provider Student in an Organized Health Care Education/Training Program
DX: Z78.0 Asymptomatic menopausal state; Z12.31 Encounter for screening mammogram for malignant neoplasm of breast; Z13.820 Encounter for screening for osteoporosis
CPT/HCPCS: 77063; 77067; 77080

== ENCOUNTER 2024-06-29 11:48 | Outpatient (CLI) | payer MEDICARE, SELFPAY ==
[2024-06-29 12:38] LABS: Anion Gap 13.2 mmol/L (3-11); BUN 51 mg/dL (7-18); CO2 24.8 mmol/L (21.0-32.0); CREATININE 1.6 mg/dL (0.55-1.02); Calculated LDL 47 mg/dL (<100); Chloride 101 mmol/L (98-107); Cholesterol 144 mg/dL (<200); Estimated GFR 34.27 (mL/min/1.73m2); Glucose 180 mg/dL (74-106); HDL Cholesterol 61 mg/dL (40-60); Potassium 4.5 mmol/L (3.5-5.1); Sodium 139 mmol/L (136-145); TSH (W/Ref FT4) 1.28 uIU/mL (0.36-3.74); Triglyceride 181 mg/dL (<150); Vitamin D 25 Total 15.8 ng/mL (30-100)
== END 2024-06-29 11:49 | disposition home or self-care (01) ==
LOC: LBO 11:49
PROVIDERS: PCP Student in an Organized Health Care Education/Training Program; Visit Provider Student in an Organized Health Care Education/Training Program
DX: E11.9 Type 2 diabetes mellitus without complications (principal); Z13.220 Encounter for screening for lipoid disorders; K90.9 Intestinal malabsorption, unspecified; G62.9 Polyneuropathy, unspecified; N18.9 Chronic kidney disease, unspecified; Z91.89 Other specified personal risk factors, not elsewhere classified; F32.9 Major depressive disorder, single episode, unspecified
CPT/HCPCS: 36415; 80048; 80061; 82306; 84443

== ENCOUNTER 2024-08-31 02:21 | Emergency (ER) | payer MEDICARE, SELFPAY ==
[2024-08-31 02:23] VITALS: BP 152/66; PULSE 103; RESP 16; TEMP 36.3; O2SAT 97
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
--- NOTE | 2024-08-31 02:30 | RT.EKG_ITS ---
APPROVED REPORT Exam: Resting ECG Reason for Exam: chest pain Patient Location: E HR:86 bpm ECG Measurements Heart Rate 86 AXIS NY 264 P 6 QRSd 89 QRS 9 QT 388 T 41 QTc 464 Conclusion Sinus rhythm...normal P axis, V-rate 60- 99 Prolonged NY interval...NY >220, V-rate 50- [address] segment or T wave abnormalities to suggest occlusive MS
[2024-08-31 02:43] LABS: Lactate 1.5 mmol/L (0.6-1.4)
[2024-08-31 02:54] LABS: Abs Immature Grans 0.15 10^3/uL (0.0-0.06); Absolute Basophil Count 0.03 10^3/uL (0.0-0.2); Absolute Eosinophil Count 0.07 10^3/uL (0.0-0.7); Absolute Neutrophil Count 5.84 10^3/uL (1.2-6.7); Basophils % 0.3 %; Eosinophils % 0.6 %; HCT 39.5 % (36.0-46.0); HGB 12.9 g/dL (11.2-15.7); Immature Grans % 1.4 %; MCH 31.5 pg (27.0-33.0); MCHC 32.7 % (32.0-36.0); MCV 96 fL (80-95); MPV 10.5 fL (8.0-11.0); Monocytes % 10.1 %; Neutrophils % 53.6 %; Platelet Count 224 10^3/uL (130-400); RDW 14.2 % (11.7-14.6); RDW-SD 49.7 fL; WBC 10.89 10^3/uL (4.4-10.8)
[2024-08-31 03:00] LABS: PTT Activated 24.7 sec (23.6-32.8); Prothrombin Time 10.2 sec (9.1-11.1)
--- NOTE | 2024-08-31 03:00 | DI.CT_ITS ---
Exam(s) CT CHEST W EXAM: CT CHEST W CLINICAL HISTORY: GI bleed, hx cirrohsis, eval varices. TECHNIQUE: Multi planar reconstructions were performed. CONTRAST MATERIAL: Omnipaque 350; 100 cc COMPARISON: CT CT ABDOMEN PELVIS CTA from 08/31/2024 FINDINGS: CHEST: LUNGS: No infiltrates nor pleural effusions. No ominous pulmonary nodules. There is a small calcifi ed granuloma in the right lower lobe noted. MEDIASTINUM: There is no hilar nor mediastinal adenopathy. Visualized thyroid unremarkable. CARDIAC: Heart size is normal. There is no pericardial effusion.Caliber of the thoracic aorta is wit hin normal limits. No dissection. No central pulmonary emboli evident. VISUALIZED UPPER ABDOMEN:There are no significant adrenal masses. OSSEOUS: No significant osseous lesions.No fractures.. IMPRESSION: 1. No significant intrathoracic findings. RADIATION DOSE DELIVERED: 1,827.66mGy.cm Total DLP DATA REPOSITORY: All CT scans at this facility are submitted to the National Radiology Data Registry (NRDR) Dose Index Registry (DIR) with the [employer] (A[employer]). RADIATION OPTIMIZATION: All CT scans at this facility use at least one of these dose optimization te chniques: automated exposure control; mA and/or kV adjustment per patient size (includes targeted exa ms where dose is matched to clinical indication); or iterative reconstruction.
[2024-08-31 03:03] LABS: ALT 49 U/L (14-59); AST 28 U/L (15-37); Albumin 4.4 g/dL (3.4-5.0); Alkaline Phosphatase 115 U/L (46-116); Anion Gap 14.1 mmol/L (3-11); BUN 72 mg/dL (7-18); Bilirubin, Total 0.41 mg/dL (0.2-1.0); CO2 19.9 mmol/L (21.0-32.0); CREATININE 2.5 mg/dL (0.55-1.02); Calcium 10.2 mg/dL (8.5-10.1); Chloride 102 mmol/L (98-107); Estimated GFR 20.06 (mL/min/1.73m2); Glucose 152 mg/dL (74-106); Potassium 4.3 mmol/L (3.5-5.1); Sodium 136 mmol/L (136-145); Total Protein 8.9 g/dL (6.4-8.2)
--- NOTE | 2024-08-31 03:06 | DI.CT_ITS ---
Exam(s) CT ABDOMEN PELVIS CTA EXAM: CT ABDOMEN PELVIS CTA CLINICAL HISTORY: GI bleed. TECHNIQUE: Imaging Protocol: Axial computed tomography images with coronal and sagittal reformatted images were created and reviewed CONTRAST MATERIAL: Intravenous: Omnipaque 350 Contrast volume:100 ml Oral: None COMPARISON: CT CT ABDOMEN PELVIS CTA from 11/22/2022 FINDINGS: CTA ABD AORTA: There is no evidence of abdominal aneurysm nor dissection. There is mild atherosclero tic disease in the abdominal aorta and branches without tight stenosis evident at their origins nor a t the aortic bifurcation nor within the iliac arteries and there is also no aneurysm of the iliac art eries. In this patient with apparent GI bleed there is no active intraluminal extravasation seen within jaron l loops of the abdomen and pelvis. ABDOMEN: There is no ascites. LIVER: There are no focal hepatic lesions nor dilatation of intrahepatic ducts. GALLBLADDER/BILIARY: Gallbladder surgically absent. CBD is not dilated. PANCREAS: No evidence of pancreatic mass nor dilatation of the pancreatic duct. SPLEEN: Spleen is not enlarged. There are no intrasplenic lesions. Splenic and portal veins are castañeda nt. ADRENALS: There are no significant adrenal masses. KIDNEYS: There few small cortical cysts in the bilateral kidneys. Also again noted in the lateral co rtex of the right kidney is what is either a hyperdense cyst or nodule measuring 1.5 x 1.6 cm, not si gnificantly increased in size from 11/22/2022. It exhibits density measurement too dense to be a sim ple cyst. Possible hemorrhagic cyst versus solid nodule. Follow-up ultrasound recommended.. ABDOMINAL AORTA: Abdominal aorta is calcified but not enlarged. Iliac arteries also calcified but no t enlarged. LYMPH NODES: There is no retroperitoneal nor para-aortic adenopathy. No obvious mesenteric masses. ABDOMINAL WALL: No evidence of significant anterior abdominal wall hernia. GI: There is suggestion of a colitis pattern in left side of the colon involving the left side of the transverse colon and distally including the sigmoid. Difficult to assess without enteric contrast. There is also sigmoid diverticulosis, without evidence of acute diverticulitis. PELVIS: LYMPH NODES: There is no intrapelvic nor inguinal adenopathy. GI: No evidence of appendicitis.Sigmoid diverticulosis without diverticulitis URINARY BLADDER: No focal masses nor calculi. No distension. REPRODUCTIVE: Uterus and adnexal regions appear age-appropriate. There is no free fluid in the pelvi s. OSSEOUS: No acute fractures nor significant osseous lesions. Chronic degenerative disc disease at L5 -S1 level. Healed fracture of the left inferior pubic ramus. IMPRESSION: 1. There appears to be a colitis pattern in the distal half of the colon, difficult to assess without enteric contrast. There is no intraluminal contrast extravasation to suggest acute hemorrhage focus , as per request. 2. There is sigmoid diverticulosis without evidence of obvious acute diverticulitis. 3. No evidence of appendicitis. No bowel obstruction, free air, nor abscess. 4. The gallbladder surgically absent. The biliary tree is not dilated. RADIATION DOSE DELIVERED: 1,827.66mGy.cm Total DLP DATA REPOSITORY: All CT scans at this facility are submitted to the National Radiology Data Registry (NRDR) Dose Index Registry (DIR) with the [employer] (ACR). RADIATION OPTIMIZATION: All CT scans at this facility use at least one of these dose optimization te chniques: automated exposure control; mA and/or kV adjustment per patient size (includes targeted exa ms where dose is matched to clinical indication); or iterative reconstruction.
[2024-08-31 03:08] LABS: Lipase 67 U/L (16-77); Magnesium 2.1 mg/dL (1.8-2.4); Troponin I 16 ng/L (<or=51)
[2024-08-31] MEDS: Ondansetron 4 MG/2 ML VIAL IVP (03:11)
[2024-08-31] MEDS: Pantoprazole 40 MG VIAL 80 MG IVP (03:12)
[2024-08-31 03:30] LABS: NT-proBNP 223 pg/mL (<300)
[2024-08-31 03:53] LABS: Troponin I 16 ng/L (<or=51)
[2024-08-31] MEDS: Normal Saline 1,000 ML 1000 ML IV (03:57)
[2024-08-31] MEDS: Normal Saline - Diluent 50 ML VIAL IJ (04:04)
[2024-08-31] MEDS: Omnipaque 350 MG/ML 100 ML BTL IJ (04:04)
[2024-08-31 04:06] VITALS: BP 120/53; PULSE 88; RESP 14; TEMP 36.7; O2SAT 99
--- NOTE | 2024-08-31 04:32 | DI.VRAD_ITS ---
Addendum created by Henry Valverde MD on 08/31/2024 4:38:02 AM EST: No significant esophageal varices are identified. Initial report created on 08/31/2024 4:32:01 AM EST: PROCEDURE INFORMATION: Exam: CT Chest With Contrast; Diagnostic Exam date and time: 08/31/2024 3:41 AM Age: 69 years old Clinical indication: Other: Gi bleed, HX cirrohsis, eval varices TECHNIQUE: Imaging protocol: Diagnostic computed tomography of the chest with contrast. 3D rendering (Not supervised by radiologist): MIP and/or 3D reconstructed images were created by the technologist. Contrast material: OMNI 350; Contrast volume: 100 ml; Contrast route: INTRAVENOUS (IV); COMPARISON: CR XR RIBS RT W PA LAT CHEST 02/04/2023 10:55 FINDINGS: Lungs: No airspace consolidation or ground-glass opacities. Calcified granuloma at the right base. Pleural spaces: No pleural effusion or pneumothorax. Heart: Coronary artery calcifications. Calcified mitral annulus. No pericardial effusion. Lymph nodes: Unremarkable. No enlarged lymph nodes. Vasculature: Unremarkable. No aortic aneurysm. Bones/joints: No acute fracture. Soft tissues: Unremarkable. IMPRESSION: No acute findings. Dictated and Authenticated by: Henry Valverde MD. Ordering:BRENDA Bolivar MD
--- NOTE | 2024-08-31 04:36 | DI.VRAD_ITS ---
PROCEDURE INFORMATION: Exam: CTA Abdomen and Pelvis With Contrast Exam date and time: 08/31/2024 3:41 AM Age: 69 years old Clinical indication: Other: Gi bleed, HX cirrohsis, eval varices TECHNIQUE: Imaging protocol: Computed tomographic angiography of the abdomen and pelvis with contrast. Exam focused on the arteries. 3D rendering (Not supervised by radiologist): MIP and/or 3D reconstructed images were created by the technologist. Contrast material: OMNI 350; Contrast volume: 100 ml; Contrast route: INTRAVENOUS (IV); COMPARISON: CT ABDOMEN PELVIS CTA 09/11/2023 06:15 FINDINGS: Aorta: Atherosclerosis of the abdominal aorta without aneurysm or dissection. Celiac trunk and mesenteric arteries: Mild stenosis of the celiac trunk. 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 Renal arteries: Moderate stenosis of the renal arteries bilaterally. Right iliac arteries: No occlusion or significant stenosis. Left iliac arteries: No occlusion or significant stenosis. Liver: Slightly nodular hepatic contour. No focal masses. Gallbladder and biliary ducts: Cholecystectomy. Pancreas: Unremarkable. No mass. No ductal dilation. Spleen: Unremarkable. No splenomegaly. Adrenal glands: Unremarkable. No mass. Kidneys and ureters: No hydronephrosis. Hyperdense cysts bilaterally measuring up to 1.6 cm. Stomach and bowel: No evidence of bowel obstruction. Mucosal thickening of the descending and sigmoid colon suspicious for colitis. Colonic diverticulosis without diverticulitis. No active GI hemorrhage is identified. Appendix: Normal appendix. Intraperitoneal space: No free fluid or free air. Lymph nodes: Unremarkable. No enlarged lymph nodes. Urinary bladder: Unremarkable. No mass. Reproductive: Unremarkable as visualized. Bones/joints: Old fracture of the left inferior pubic ramus. Degenerative disc disease at L5-S1. No acute fracture. Soft tissues: Unremarkable. IMPRESSION: 1. Suspected colitis involving the descending and sigmoid colon. 2. No evidence of active GI hemorrhage. Dictated and Authenticated by: Henry Valverde MD. Ordering:BRENDA Bolivar MD
[2024-08-31 05:31] LABS: Abs Immature Grans 0.04 10^3/uL (0.0-0.06); Absolute Basophil Count 0.02 10^3/uL (0.0-0.2); Absolute Eosinophil Count 0.09 10^3/uL (0.0-0.7); Absolute Lymphocyte Count 3.05 10^3/uL (1.2-3.4); Absolute Neutrophil Count 8.06 10^3/uL (1.2-6.7); Basophils % 0.2 %; Eosinophils % 0.7 %; HCT 38.2 % (36.0-46.0); HGB 12.3 g/dL (11.2-15.7); Immature Grans % 0.3 %; MCH 31.8 pg (27.0-33.0); MCHC 32.2 % (32.0-36.0); MCV 99 fL (80-95); MPV 9.8 fL (8.0-11.0); Monocytes % 7.6 %; Neutrophils % 66.2 %; Platelet Count 178 10^3/uL (130-400); RBC 3.87 10^6/uL (3.93-5.22); RDW 14.4 % (11.7-14.6); RDW-SD 52.5 fL; WBC 12.18 10^3/uL (4.4-10.8)
[2024-08-31 05:33] LABS: Absolute Monocyte Count 0.93 10^3/uL (0.1-0.8)
[2024-08-31 05:35] VITALS: BP 140/39; PULSE 91; RESP 16; O2SAT 100
[2024-08-31] MEDS: Azithromycin 250 MG TAB 500 MG PO (06:04)
[2024-08-31 06:07] LABS: Troponin I 18 ng/L (<or=51)
[2024-08-31 06:10] VITALS: BP 119/82; PULSE 89; RESP 16; TEMP 36.8; O2SAT 99
[2024-08-31 06:20] VITALS: BP 119/82; PULSE 89; RESP 16; TEMP 36.8; O2SAT 99
[2024-08-31] MEDS: Azithromycin 250 MG TAB 1000 MG PO (06:23)
[2024-09-03 16:42] LABS: Lab Add On Test DONE
[2024-09-03 17:03] LABS: Iron 71 ug/dL (50-170); Total Iron Binding Capacity 481 ug/dL (250-450); Transferrin Sat 15 % (15-50)
[2024-09-03 17:05] LABS: Hemoglobin A1C 8.3 % (<5.7)
[2024-09-04 17:45] LABS: Folate >24.0 ng/mL (See Note); Parathyroid Hormone,Intact 117.5 pg/mL (19.0-88.0)
== END 2024-08-31 06:21 | disposition home or self-care (01) ==
LOC: ER 06:23
PROVIDERS: Emergency Provider Student in an Organized Health Care Education/Training Program; PCP Student in an Organized Health Care Education/Training Program
DX: K92.2 Gastrointestinal hemorrhage, unspecified (principal); K52.9 Noninfective gastroenteritis and colitis, unspecified; R11.0 Nausea; R10.9 Unspecified abdominal pain; D64.9 Anemia, unspecified; K21.9 Gastro-esophageal reflux disease without esophagitis; Z86.79 Personal history of other diseases of the circulatory system; I10 Essential (primary) hypertension; Z59.10 Inadequate housing, unspecified; Z59.811 Housing instability, housed, with risk of homelessness; Z63.9 Problem related to primary support group, unspecified
CPT/HCPCS: 36415; 80053; 83690; 86850; 86900; 86901; 93005; 96361; 96374; 96375; 99285; 71260; 74174; 82746; 83036; 83540; 83550; 83605; 83735; 83880; 83970; 84484; 85025; 85610; 85730; 93010; 99284; J2405; J2470; J3490

== ENCOUNTER 2024-09-25 18:08 | Emergency (ER) | payer MEDICARE, SELFPAY ==
[2024-09-25] VITALS (15 sets, daily range): BP systolic 122–176; BP diastolic 61–96; PULSE 64–89; RESP 10–33; TEMP 36.8; O2SAT 97–100
--- NOTE | 2024-09-25 18:00 | RT.EKG_ITS ---
APPROVED REPORT Exam: Resting ECG Reason for Exam: Chest Patient Location: E HR:85 bpm ECG Measurements Heart Rate 85 AXIS NY 270 P -27 QRSd 91 QRS 24 QT 381 T 59 QTc 453 Conclusion Sinus rhythm 85 normal axis no stemi
--- NOTE | 2024-09-25 18:30 | DI.RAD_ITS ---
Exam(s) XR CHEST 2V PA LATERAL EXAM: XR CHEST 2V PA LATERAL CLINICAL HISTORY: sob. TECHNIQUE: 2D digital imaging was performed. COMPARISON: CR XR RIBS RT W PA LAT CHEST from 04/02/2023 FINDINGS: 2 views: Heart size is normal. The mediastinum is not widened. Lungs are clear. No infiltrates nor pleural effusions. IMPRESSION: No acute pulmonary findings. DATA REPOSITORY: RADIATION DOSE DELIVERED:
[2024-09-25 18:50] LABS: Abs Immature Grans 0.01 10^3/uL (0.0-0.06); Absolute Basophil Count 0.03 10^3/uL (0.0-0.2); Absolute Eosinophil Count 0.11 10^3/uL (0.0-0.7); Absolute Lymphocyte Count 1.66 10^3/uL (1.2-3.4); Absolute Monocyte Count 0.57 10^3/uL (0.1-0.8); Absolute Neutrophil Count 3.32 10^3/uL (1.2-6.7); Basophils % 0.5 %; Eosinophils % 1.9 %; HGB 10.7 g/dL (11.2-15.7); Immature Grans % 0.2 %; Lymphocytes % 29.1 %; MCH 31.2 pg (27.0-33.0); MCHC 31.5 % (32.0-36.0); MCV 99 fL (80-95); MPV 10.1 fL (8.0-11.0); Neutrophils % 58.3 %; Platelet Count 171 10^3/uL (130-400); RBC 3.43 10^6/uL (3.93-5.22); RDW 13.8 % (11.7-14.6); RDW-SD 50.2 fL
[2024-09-25 19:03] LABS: PTT Activated 23.4 sec (23.6-32.8); Prothrombin Time 10.1 sec (9.1-11.1)
[2024-09-25 19:07] LABS: ALT 77 U/L (14-59); AST 47 U/L (15-37); Alkaline Phosphatase 133 U/L (46-116); Anion Gap 10.7 mmol/L (3-11); BUN 57 mg/dL (7-18); Bilirubin, Total 0.35 mg/dL (0.2-1.0); CO2 26.3 mmol/L (21.0-32.0); CREATININE 2.4 mg/dL (0.55-1.02); Calcium 9.5 mg/dL (8.5-10.1); Chloride 104 mmol/L (98-107); Estimated GFR 21.06 (mL/min/1.73m2); Glucose 154 mg/dL (74-106); Magnesium 2.2 mg/dL (1.8-2.4); Potassium 5.5 mmol/L (3.5-5.1); Sodium 141 mmol/L (136-145); Total Protein 8.2 g/dL (6.4-8.2)
[2024-09-25 19:15] LABS: NT-proBNP 526 pg/mL (<300); Troponin I 7 ng/L (<or=51)
[2024-09-25 20:48] LABS: Troponin I 8 ng/L (<or=51)
[2024-09-25] MEDS: Ondansetron O.D.T. 4 MG TABEF PO (20:52)
[2024-09-25] MEDS: traMADol 50 MG TAB PO (20:53)
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
== END 2024-09-25 22:00 | disposition home or self-care (01) ==
PROVIDERS: Emergency Provider Emergency Medicine; PCP Student in an Organized Health Care Education/Training Program
DX: R06.02 Shortness of breath (principal); E11.3291 Type 2 diabetes mellitus with mild nonproliferative diabetic retinopathy without macular edema, right eye; E11.40 Type 2 diabetes mellitus with diabetic neuropathy, unspecified; I11.0 Hypertensive heart disease with heart failure; I50.43 Acute on chronic combined systolic (congestive) and diastolic (congestive) heart failure; I25.10 Atherosclerotic heart disease of native coronary artery without angina pectoris; E78.5 Hyperlipidemia, unspecified; Z79.82 Long term (current) use of aspirin; Z79.4 Long term (current) use of insulin; Z86.73 Personal history of transient ischemic attack (TIA), and cerebral infarction without residual deficits
CPT/HCPCS: 36415; 80053; 87426; 93005; 99285; 71046; 83735; 83880; 84484; 85025; 85610; 85730; 93010; 99284

== ENCOUNTER → 2024-10-23 09:13 | Outpatient (BNVA) | payer MEDICARE, SELFPAY | PROVIDERS: PCP Nurse Practitioner Family; Referring Provider Nurse Practitioner Family; Visit Provider Surgery ==

== ENCOUNTER 2024-10-23 12:21 | Outpatient (CLI) | payer MEDICARE, SELFPAY ==
[2024-10-23 10:41] LABS: Abs Immature Grans 0.01 10^3/uL (0.0-0.06); Absolute Basophil Count 0.03 10^3/uL (0.0-0.2); Absolute Neutrophil Count 3.92 10^3/uL (1.2-6.7); Basophils % 0.4 %; Eosinophils % 2.8 %; HCT 32.5 % (36.0-46.0); HGB 10.3 g/dL (11.2-15.7); Immature Grans % 0.1 %; Lymphocytes % 32.6 %; MCH 30.8 pg (27.0-33.0); MCHC 31.7 % (32.0-36.0); MCV 97 fL (80-95); Monocytes % 8.5 %; Neutrophils % 55.6 %; Platelet Count 179 10^3/uL (130-400); RBC 3.34 10^6/uL (3.93-5.22); RDW 13.8 % (11.7-14.6); WBC 7.06 10^3/uL (4.4-10.8)
[2024-10-23 11:08] LABS: ALT 30 U/L (14-59); AST 20 U/L (15-37); Albumin 3.6 g/dL (3.4-5.0); Alkaline Phosphatase 107 U/L (46-116); BUN 66 mg/dL (7-18); Bilirubin, Total 0.32 mg/dL (0.2-1.0); CREATININE 1.9 mg/dL (0.55-1.02); Calcium 9.7 mg/dL (8.5-10.1); Chloride 106 mmol/L (98-107); Estimated GFR 27.88 (mL/min/1.73m2); Ferritin 14 ng/mL (8-252); Glucose 148 mg/dL (74-106); Potassium 4.8 mmol/L (3.5-5.1); Sodium 142 mmol/L (136-145); Total Protein 7.9 g/dL (6.4-8.2)
[2024-10-23 11:33] LABS: NT-proBNP 410 pg/mL (<300)
== END 2024-10-23 12:22 | disposition home or self-care (01) ==
LOC: LBO 12:22
PROVIDERS: PCP Nurse Practitioner Family; Visit Provider Surgery
DX: R06.02 Shortness of breath (principal); I05.9 Rheumatic mitral valve disease, unspecified; I25.10 Atherosclerotic heart disease of native coronary artery without angina pectoris; E11.40 Type 2 diabetes mellitus with diabetic neuropathy, unspecified; R79.89 Other specified abnormal findings of blood chemistry; K21.9 Gastro-esophageal reflux disease without esophagitis; K22.2 Esophageal obstruction; R13.10 Dysphagia, unspecified; K22.70 Barrett's esophagus without dysplasia; K75.81 Nonalcoholic steatohepatitis (NASH); K74.60 Unspecified cirrhosis of liver; D50.9 Iron deficiency anemia, unspecified; D50.0 Iron deficiency anemia secondary to blood loss (chronic)
CPT/HCPCS: 36415; 80053; 99214; 82728; 83735; 83880; 85025

== ENCOUNTER 2024-11-07 12:25 | Outpatient (REF) | payer MEDICARE, SELFPAY | END 2024-11-07 12:26 | disposition home or self-care (01) | LOC: LBN 12:25 | PROVIDERS: PCP Nurse Practitioner Family; Visit Provider Nurse Practitioner Family | DX: R35.0 Frequency of micturition (principal); R82.89 Other abnormal findings on cytological and histological examination of urine | CPT/HCPCS: 87086 ==

== ENCOUNTER 2024-11-13 00:15 | Outpatient (CLI) | payer MEDICARE, SELFPAY ==
--- NOTE | 2024-11-13 | DI.US_ITS ---
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 COMPARISON: CT CT CHEST W from 08/31/[address] ABDOMEN PELVIS CTA from 08/31/2024 FINDINGS: LIVER: Enlarged at 19.4 cm in length. Increased echogenicity and coarsening of echotexture. No foca l liver lesions are seen. GALLBLADDER: Status post cholecystectomy. BILIARY SYSTEM: No intrahepatic or extrahepatic biliary ductal dilation. Right KIDNEY: . No evidence of renal calculi. No evidence of hydronephrosis. Renal cysts again noted. PANCREAS: Normal where visualized. ASCITES: None seen. IMPRESSION: Mildly enlarged liver with increased echogenicity. No focal liver lesions. DATA REPOSITORY:
== END 2024-11-13 00:35 ==
LOC: DI 00:15
PROVIDERS: PCP Nurse Practitioner Family; Visit Provider Nurse Practitioner Family
DX: K75.81 Nonalcoholic steatohepatitis (NASH)
CPT/HCPCS: 76705

== ENCOUNTER 2024-12-21 10:32 | Emergency (ER) | payer MEDICARE, SELFPAY ==
[2024-12-21] VITALS (24 sets, daily range): BP systolic 161–196; BP diastolic 62–83; PULSE 55–103; RESP 20; TEMP 36.4–36.9; O2SAT 84–100
--- NOTE | 2024-12-21 10:30 | RT.EKG_ITS ---
APPROVED REPORT Exam: Resting ECG Reason for Exam: cardiac hx, vomiting Patient Location: E HR:92 bpm ECG Measurements Heart Rate 92 AXIS [place] 280 P 28 QRSd 82 QRS 69 QT 360 T 47 QTc 444 Conclusion Sinus rhythm, rate 92 1st degree HB, [place] interval 280ms No STEMI No significant changes from priors
[2024-12-21] MEDS: Prochlorperazine 10 MG/2 ML VIAL 5 MG IVP ×2 (11:17→14:19)
[2024-12-21 11:23] LABS: Abs Immature Grans 0.03 10^3/uL (0.0-0.06); Absolute Basophil Count 0.05 10^3/uL (0.0-0.2); Absolute Eosinophil Count 0.15 10^3/uL (0.0-0.7); Absolute Lymphocyte Count 1.97 10^3/uL (1.2-3.4); Absolute Monocyte Count 0.64 10^3/uL (0.1-0.8); Absolute Neutrophil Count 7.06 10^3/uL (1.2-6.7); Basophils % 0.5 %; Eosinophils % 1.5 %; HCT 36.8 % (36.0-46.0); HGB 11.4 g/dL (11.2-15.7); Immature Grans % 0.3 %; Lymphocytes % 19.9 %; MCH 29.9 pg (27.0-33.0); MCV 97 fL (80-95); MPV 10.7 fL (8.0-11.0); Monocytes % 6.5 %; Neutrophils % 71.3 %; Platelet Count 231 10^3/uL (130-400); RBC 3.81 10^6/uL (3.93-5.22); RDW 13.5 % (11.7-14.6); RDW-SD 47.7 fL
[2024-12-21 11:38] LABS: ALT 42 U/L (14-59); AST 34 U/L (15-37); Albumin 3.9 g/dL (3.4-5.0); Alkaline Phosphatase 129 U/L (46-116); BUN 34 mg/dL (7-18); Bilirubin, Total 0.6 mg/dL (0.2-1.0); CREATININE 1.5 mg/dL (0.55-1.02); Calcium 10.4 mg/dL (8.5-10.1); Chloride 100 mmol/L (98-107); Estimated GFR 37.03 (mL/min/1.73m2); Glucose 222 mg/dL (74-106); Lipase 39 U/L (<78); Magnesium 2.1 mg/dL (1.8-2.4); Potassium 4.2 mmol/L (3.5-5.1); Sodium 139 mmol/L (136-145); Total Protein 8.7 g/dL (6.4-8.2); Troponin I 8 ng/L (<or=51)
[2024-12-21 11:45] LABS: Bilirubin Negative (Negative); Blood Trace-lysed (Negative); Clarity Clear (Clear); Glucose 100 mg/dL (Negative); Ketones Negative (Negative); Leukocyte Esterase Negative (Negative); Nitrite Negative (Negative); Urobilinogen 0.2 mg/dL (Up to 0.2)
--- NOTE | 2024-12-21 11:59 | ED.GENADUL_ITS ---
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 cath (~01/2021) [facility] [place]-3 vessel coronary artery disease(LAD,LCX,RCA), elevated left ventricular end diastolic pressure H/O esophagogastroduodenoscopy (~12/25/20) [facility] [place] gastric bx's negative for diagnostic abnormali ty; Distal esophagus bx's;[place] mucosa negative for diagnostic abnormality.oxyntocardiac mucosa negative for intestinal metaplasia. Proximal esophagus biopsies;[place] negative for diagnostic abnormality; Gastric polyp-fragments of fundic gland polyp. Hx of colonoscopy (~12/25/20) 2020-Tubular adenomas x10 Repair, Tendon or Muscle Achilles Oophrectomy, Left Repair of umbilical hernia with mesh Endometrial Ablation Cholecystectomy (~2015) Arthroplasty of knee Family History Mother Diabetes Father Heart disease Substance abuse Brother Substance abuse Depression Heart disease Social History Smoking/Tobacco Use Status: Never Smoking risk assessment performed?: Yes Alcohol Intake: former Drug use: Occasionally Substance use type: marijuana Details: Medical marijuana Adopted: No Caregiver/Support person: No Foster care: No Household members: none Housing: house Do you need help understanding health information?: Rarely current occupation: [employer] Sexually active: No Do you think of yourself as: straight/heterosexual Current gender identity: female Do you feel safe at home: Yes Do you feel safe in your relationship?: Yes Additional Social history: lives alone
[2024-12-21 12:03] LABS: Bacteria Negative HPF (Negative); C & S Indicated? No; Casts Negative LPF (Negative); Crystals Negative HPF (Negative); Epithelial Cells Rare HPF (Negative); Mucus Negative (Negative); RBC 0-2 HPF (0-2); WBC 0-2 HPF (0-5)
[2024-12-21] MEDS: hydrOXYzine HCL 25 MG TAB PO (12:27)
--- NOTE | 2024-12-21 12:45 | DI.CT_ITS ---
Exam(s) CT ABDOMEN PELVIS W EXAM: CT ABDOMEN PELVIS W CLINICAL HISTORY: Nausea, constipation TECHNIQUE: Imaging Protocol: Axial computed tomography images with coronal and sagittal reformatted images were created and reviewed. CONTRAST MATERIAL: Intravenous: Omnipaque 350 Contrast volume:100 mL Oral: No COMPARISON: CT CT ABDOMEN PELVIS CTA from 11/22/[address] CHEST W from 08/31/[address] ABDOMEN PELVIS CTA from 08/31/2024 FINDINGS: ABDOMEN: Lung Bases: Coronary artery calcifications are present. Liver: Normal density. No measurable mass. Portal, Superior Mesenteric, and Splenic Veins: Unremarkable. Gallbladder and Biliary Tract: Stable appearance of the extrahepatic bile ducts. The gallbladder is absent. Pancreas: Normal density, no abnormal calcifications or inflammatory process. Spleen: Normal. Adrenals: No masses seen. Kidneys: Normal size, contour and axis. No radiodense stones or obstructive uropathy. There are bilat eral stable renal cysts. No follow-up is recommended. Abdominal Aorta: Abdominal portion non-dilated. Atherosclerotic calcification is present. Bowel: There is diverticulosis of the colon without evidence of acute diverticulitis. There is no ev idence of bowel obstruction or bowel wall thickening. The stomach is incompletely distended limiting evaluation. Appendix is unremarkable. There is a moderate amount of stool in the colon. Peritoneal Cavity: No ascites, collection or mesenteric inflammatory response. No free air. Lymph Nodes: Within normal limits. Bones: Within normal limits for the patient's age. There is an old healed left inferior pubic ramus fracture. Soft Tissues: Unremarkable. PELVIS: Bladder: Symmetric distention, no gross wall thickening. Reproductive Organs: Unremarkable as visualized. Lymph Nodes: Within normal limits. Bones: Within normal limits for the patient's age. IMPRESSION: 1. Amount of stool in the colon. 2. Diverticulosis without evidence of acute diverticulitis. RADIATION DOSE DELIVERED: 600.51mGy.cm Total DLP DATA REPOSITORY: All CT scans at this facility are submitted to the National Radiology Data Registry (NRDR) Dose Index Registry (DIR) with the [employer] ([employer]). RADIATION OPTIMIZATION: All CT scans at this facility use at least one of these dose optimization te chniques: automated exposure control; mA and/or kV adjustment per patient size (includes targeted exa ms where dose is matched to clinical indication); or iterative reconstruction.
[2024-12-21 12:50] LABS: Troponin I 12 ng/L (<or=51)
[2024-12-21] MEDS: Omnipaque 350 MG/ML 100 ML BTL IJ (13:03)
[2024-12-21] MEDS: Normal Saline - Diluent 50 ML VIAL IJ (13:11)
[2024-12-21] MEDS: traMADol 50 MG TAB PO (13:53)
[2024-12-21] MEDS: ACETAMINOPHEN 1,000 MG/100 ML BAG 400 MG IVPB (14:19)
== END 2024-12-21 15:09 | disposition home or self-care (01) ==
PROVIDERS: Emergency Provider Emergency Medicine; PCP Nurse Practitioner Family
DX: R11.2 Nausea with vomiting, unspecified (principal); E11.3291 Type 2 diabetes mellitus with mild nonproliferative diabetic retinopathy without macular edema, right eye; I11.0 Hypertensive heart disease with heart failure; I50.42 Chronic combined systolic (congestive) and diastolic (congestive) heart failure; N18.4 Chronic kidney disease, stage 4 (severe); E11.22 Type 2 diabetes mellitus with diabetic chronic kidney disease; I25.10 Atherosclerotic heart disease of native coronary artery without angina pectoris; K75.81 Nonalcoholic steatohepatitis (NASH); K74.60 Unspecified cirrhosis of liver; Z86.73 Personal history of transient ischemic attack (TIA), and cerebral infarction without residual deficits; Z79.4 Long term (current) use of insulin; Z79.82 Long term (current) use of aspirin
CPT/HCPCS: 80053; 83690; 93005; 96374; 96375; 96376; 99285; 74177; 81003; 81015; 83735; 84484; 85025; 93010; J0131; J0780; J3490

== ENCOUNTER 2024-12-22 05:00 | Observation (INO) | payer MEDICARE, SELFPAY ==
[2024-12-22] VITALS (66 sets, daily range): BP systolic 109–242; BP diastolic 55–136; PULSE 80–133; RESP 13–35; TEMP 36.6–37.5; O2SAT 79–100
[2024-12-22] MEDS: Prochlorperazine 10 MG/2 ML VIAL IVP ×3 (04:41→16:59)
[2024-12-22] MEDS: Ondansetron 4 MG/2 ML VIAL IVP (04:41)
[2024-12-22] MEDS: diphenhydrAMINE 50 MG/ML VIAL 25 MG IVP (04:41)
[2024-12-22] MEDS: Normal Saline 500 ML IV (04:41)
[2024-12-22 04:51] LABS: Abs Immature Grans 0.05 10^3/uL (0.0-0.06); Absolute Basophil Count 0.04 10^3/uL (0.0-0.2); Absolute Lymphocyte Count 1.57 10^3/uL (1.2-3.4); Absolute Monocyte Count 0.47 10^3/uL (0.1-0.8); Absolute Neutrophil Count 8.55 10^3/uL (1.2-6.7); Basophils % 0.4 %; HCT 38.8 % (36.0-46.0); HGB 12.1 g/dL (11.2-15.7); Immature Grans % 0.5 %; Lymphocytes % 14.7 %; MCH 29.4 pg (27.0-33.0); MCHC 31.2 % (32.0-36.0); MCV 94 fL (80-95); Monocytes % 4.4 %; Platelet Count 277 10^3/uL (130-400); RBC 4.12 10^6/uL (3.93-5.22); RDW 13.4 % (11.7-14.6); RDW-SD 45.5 fL; WBC 10.68 10^3/uL (4.4-10.8)
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
[2024-12-22 05:08] LABS: ALT 38 U/L (14-59); AST 31 U/L (15-37); Albumin 4.2 g/dL (3.4-5.0); Alkaline Phosphatase 134 U/L (46-116); BUN 22 mg/dL (7-18); Bilirubin, Total 0.8 mg/dL (0.2-1.0); CREATININE 1.7 mg/dL (0.55-1.02); Chloride 97 mmol/L (98-107); Estimated GFR 31.86 (mL/min/1.73m2); Glucose 327 mg/dL (74-106); Lipase 37 U/L (<78); Potassium 3.5 mmol/L (3.5-5.1); Sodium 138 mmol/L (136-145); Total Protein 9.4 g/dL (6.4-8.2)
--- NOTE | 2024-12-22 05:29 | HPE_ITS ---
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 medications,tests, procedures, indepentently interpreting results, counseling the patient and care coordination
--- NOTE | 2024-12-22 05:36 | DI.RAD_ITS ---
Exam(s) XR ABDOMEN FLAT PLATE EXAM: 2D digital imaging was performed. CLINICAL HISTORY: vomiting, eval for obstruction. COMPARISON: CT CT ABDOMEN PELVIS W from 12/21/2024 TECHNIQUE: Upright views of the abdomen performed. One view FINDINGS: BOWEL GAS PATTERN: Nondistended. CALCIFICATIONS: Vascular calcifications are present. OSSEOUS STRUCTURES: Normal for age. OTHER FINDINGS: The patient is status post cholecystectomy. IMPRESSION: 1. Nonobstructive bowel gas pattern. 2. No acute abdominal process. DATA REPOSITORY: RADIATION DOSE DELIVERED:
[2024-12-22 05:53] LABS: *AMPHETAMINES SCREEN URINE Negative (Negative); *BARBITURATES SCREEN URINE Negative (Negative); *BENZODIAZEPINES SCREEN URINE Negative (Negative); Cannabinoids THC Positive (Negative); Cocaine Screen,Urine Negative (Negative); METHADONE URINE SCREEN Negative (Negative); OPIATES URINE SCREEN Negative (Negative)
[2024-12-22 05:55] LABS: Tricyclic Antidepressants Negative (Negative)
[2024-12-22] MEDS: Droperidol 5 MG/2 ML VIAL 2.5 MG IVP (05:59)
--- NOTE | 2024-12-22 06:57 | NUR.NOTE ---
Nursing Note: late entry pt MARINOAmena from home, pt states she did not get better since she was seen here earlier, but did not take any of her meds all day, pt extremely anxious and asking for medication for NV and anxiety. pt has been using the call cunningham non-stop and removing herself off her monitor.
--- NOTE | 2024-12-22 07:00 | W.PC.ACHO ---
Registration Status: Primary Language: Preferred Language: ED Information & Data Chief Complaint Nausea/Vomit/Diar 12/22/24 05:14 Triage Note BIBA, n/v since 1600 12/22/24 04:28 yesterday. Abd pain. recheck from yesterday. Medical / Surgical History (Last Reviewed 12/22/24 @ 06:34 by Mauro Holland) Myopia, bilateral Age-related nuclear cataract, bilateral Non-insulin dependent type 2 diabetes mellitus Palliative care encounter Insulin use (long-term) in type 2 diabetes Hospitalization or health care facility admission within last 6 months Diverticulosis Closed fracture of left inferior pubic ramus Piriformis syndrome of right side Bradycardia Trochanteric bursitis, right hip Peripheral vascular disease with claudication Peripheral neuropathy Hammer toe Acute on chronic combined systolic and diastolic CHF (congestive heart failure) Heart failure with reduced ejection fraction 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 (06/02/21) KINGSLEY (obstructive sleep apnea) Claudication of left lower extremity Neuropathy Retroperitoneal abscess Pancreatic abscess (~01/17/21) Peripancreatic abscess Calculus of cystic duct Tubular adenoma (~12/2020) Chronic pain disorder Stressful life event affecting family Withdrawal syndrome Insomnia Sinus tachycardia Anxiety History of umbilical hernia Snoring Daytime somnolence Hyperlipidemia Medical marijuana use Nonalcoholic steatohepatitis Restless leg syndrome History of transient ischemic attack Diabetic neuropathy Colitis Right flank pain (Last Reviewed 12/22/24 @ 06:34 by Mauro Holland) History of biopsy of soft tissue (~11/2024) History of local excision of skin lesion History of biopsy (09/07/23) History of ERCP (~01/17/21) History of cardiac cath (~02/07/21) S/P cardiac cath (~01/2021) H/O esophagogastroduodenoscopy (~12/25/20) Hx of colonoscopy (~12/25/20) Repair, Tendon or Muscle Oophrectomy, Left Repair of umbilical hernia Endometrial Ablation Cholecystectomy (~2015) Arthroplasty of knee Most Recent Vital Signs Pulse 127 H 12/22/24 06:14 Respiratory Rate 13 12/22/24 06:09 Blood Pressure 218/81 H 12/22/24 06:01 Blood Pressure Position Sitting 12/22/24 04:28 Pulse Oximetry 99 12/22/24 06:14 Oxygen Delivery Method Room Air 12/22/24 04:30 Oxygen Flow Rate 0 12/22/24 04:30 Allergies metoclopramide (From Reglan) Allergy (Verified 12/22/24 04:34) Other (See Comment) Pt states her girls told her, she does not know.HE pollen extracts Allergy (Verified 12/22/24 04:34) itching sneezing.HE Benzodiazepines Adverse Reaction (Intermediate, Verified 12/22/24 04:34) paradoxical effect to Lorazepam, per [facility] 01/2021 note as provided by daughter from [facility] portal.HE propoxyphene HCl (From Darvon) Adverse Reaction (Verified 12/22/24 04:34) Nausea Precautions Isolation Standard precaution 12/22/24 04:35 IV IV Catheter Type [Right Wrist] Saline Lock IV Catheter Gauge [Right Wrist 20 ] Diagnostics 12/22/24 12/22/24 12/22/24 Range/Units 06:46 05:55 05:18 WBC (4.4-10.8) 10^3/uL RBC (3.93-5.22) 10^6/uL Hgb (11.2-15.7) g/dL Hct (36.0-46.0) % MCV (80-95) fL MCH (27.0-33.0) pg MCHC (32.0-36.0) % RDW (11.7-14.6) % Plt Count (130-400) 10^3/uL MPV (8.0-11.0) fL Immature Gran % % Neutrophils % % Lymphocytes % % Monocytes % % Eosinophils % % Basophils % % Nucleated RBC % (0.0-0.3) % Absolute Neutrophils (1.2-6.7) 10^3/uL Absolute Lymphocytes (1.2-3.4) 10^3/uL Absolute Monocytes (0.1-0.8) 10^3/uL Absolute Eosinophils (0.0-0.7) 10^3/uL Absolute Basophils (0.0-0.2) 10^3/uL Sodium (136-145) mmol/L Potassium (3.5-5.1) mmol/L Chloride (98-107) mmol/L Carbon Dioxide (21.0-32.0) mmol/L Anion Gap (3-11) mmol/L BUN (7-18) mg/dL Creatinine (0.55-1.02) mg/dL Est GFR (CKD-EPI 2020) (mL/min/1.73m2) Glucose (74-106) mg/dL Calcium (8.5-10.1) mg/dL Total Bilirubin (0.2-1.0) mg/dL AST (15-37) U/L ALT (14-59) U/L Alkaline Phosphatase (46-116) U/L NT-Pro-B Natriuret Pep Pending Total Protein (6.4-8.2) g/dL Albumin (3.4-5.0) g/dL Lipase (<78) U/L Urine Opiates Screen Negative (Negative) Urine Methadone Screen Negative (Negative) Ur Barbiturates Screen Negative (Negative) Ur Tricyclics Screen Negative (Negative) Ur Amphetamines Screen Negative (Negative) U Benzodiazepines Scrn Negative (Negative) Urine Cocaine Screen Negative (Negative) Ur THC Screen Positive A (Negative) COVID-19 Source Pending SARS-CoV-2 (PCR) Pending 12/22/24 Range/Units 04:40 WBC 10.68 (4.4-10.8) 10^3/uL RBC 4.12 (3.93-5.22) 10^6/uL Hgb 12.1 (11.2-15.7) g/dL Hct 38.8 (36.0-46.0) % MCV 94 (80-95) fL MCH 29.4 (27.0-33.0) pg MCHC 31.2 L (32.0-36.0) % RDW 13.4 (11.7-14.6) % Plt Count 277 (130-400) 10^3/uL MPV 11.0 (8.0-11.0) fL Immature Gran % 0.5 % Neutrophils % 80.0 % Lymphocytes % 14.7 % Monocytes % 4.4 % Eosinophils % 0.0 % Basophils % 0.4 % Nucleated RBC % 0.0 (0.0-0.3) % Absolute Neutrophils 8.55 H (1.2-6.7) 10^3/uL Absolute Lymphocytes 1.57 (1.2-3.4) 10^3/uL Absolute Monocytes 0.47 (0.1-0.8) 10^3/uL Absolute Eosinophils 0.00 (0.0-0.7) 10^3/uL Absolute Basophils 0.04 (0.0-0.2) 10^3/uL Sodium 138 (136-145) mmol/L Potassium 3.5 (3.5-5.1) mmol/L Chloride 97 L (98-107) mmol/L Carbon Dioxide 21.0 (21.0-32.0) mmol/L Anion Gap 20.0 H (3-11) mmol/L BUN 22 H (7-18) mg/dL Creatinine 1.7 H (0.55-1.02) mg/dL Est GFR (CKD-EPI 2020) 31.86 (mL/min/1.73m2) Glucose 327 H (74-106) mg/dL Calcium 11.0 H (8.5-10.1) mg/dL Total Bilirubin 0.8 (0.2-1.0) mg/dL AST 31 (15-37) U/L ALT 38 (14-59) U/L Alkaline Phosphatase 134 H (46-116) U/L NT-Pro-B Natriuret Pep Total Protein 9.4 H (6.4-8.2) g/dL Albumin 4.2 (3.4-5.0) g/dL Lipase 37 (<78) U/L Urine Opiates Screen (Negative) Urine Methadone Screen (Negative) Ur Barbiturates Screen (Negative) Ur Tricyclics Screen (Negative) Ur Amphetamines Screen (Negative) U Benzodiazepines Scrn (Negative) Urine Cocaine Screen (Negative) Ur THC Screen (Negative) COVID-19 Source SARS-CoV-2 (PCR) Intake and Output - 24 Hour Total 12/22/24 04:24 thru 12/22/24 05:36 Intake Total 500 Balance 500 Weight 80.286 kg Intake: IV 500 Other: Stool Characteristics Liquid Emesis Description Mucous Falls Risk Assessment History of Falls Previous History 12/22/24 04:35 Contributing Factors Unstable,Impairments 12/22/24 04:35 Ambulatory Aids Uses ambulatory device 12/22/24 04:35 Tubes/Lines None 12/22/24 04:35 Gait Evaluation W/no contributing factors 12/22/24 04:35 Cognition No cognitive impairment 12/22/24 04:35 Fall Total Score 46 12/22/24 04:35 Level of Risk Moderate Risk 12/22/24 04:35 Problems (Last Reviewed 12/22/24 @ 06:34 by Mauro Holland) Intractable nausea and vomiting (Acute) Degeneration of intervertebral disc at L5-S1 level (Chronic) Chronic pain (Chronic) Diabetes mellitus with neuropathy (Chronic) CKD (chronic kidney disease) stage 4, GFR 15-29 ml/min (Chronic) Hypertension (Chronic) CAD (coronary artery disease) (Chronic) Congestive heart failure (Chronic ~02/2021) Notes 12/22/24 06:57 Nursing Notes by Ozzy Em Nursing Note: late entry pt ABIEL from home, pt states she did not get better since she was seen here earlier, but did not take any of her meds all day, pt extremely anxious and asking for medication for NV and anxiety. pt has been using the call cunningham non-stop and removing herself off her monitor. Initialized on 12/22/24 06:57 - END OF NOTE v v v v v v v v v Sending and/or Receiving Nurses: Please use comment section below to note any information pertinent to the patient hand-off not included above. Information / Comments: Report received from: Gary Dia RN @ [id number] (ED)
[2024-12-22 07:54] LABS: BE (Venous) -1 mmol/L (-2-3); HCO3 (Venous) 22 mmol/L (23-28); O2 Sat (Venous) 49 %; TCO2 (Venous) 20 mmol/L (24-29); pCO2 (Venous) 27 mmHg (41-51); pH (Venous) 7.52 (7.31-7.41); pO2 (Venous) 26 mmHg
[2024-12-22] MEDS: Insulin Glargine 300 UNITS/3 ML PEN 16 UNITS SC (08:05)
[2024-12-22] MEDS: Insulin Aspart 300 UNITS/3 ML PEN SC ×4 (08:07→22:12)
[2024-12-22] MEDS: Allopurinol 100 MG TAB PO (08:08)
[2024-12-22] MEDS: Lisinopril 2.5 MG TAB PO (08:09)
[2024-12-22] MEDS: traMADol 50 MG TAB PO ×2 (08:09→19:50)
[2024-12-22] MEDS: Torsemide 20 MG TAB 10 MG PO (08:09)
[2024-12-22] MEDS: Aspirin E.C. 81 MG TABEC PO (08:09)
[2024-12-22] MEDS: Senna TAB 1 TAB PO (08:09)
[2024-12-22] MEDS: Gabapentin 300 MG CAP 600 MG PO (08:09)
[2024-12-22] MEDS: Metoprolol CR 50 MG TABCR PO (08:09)
[2024-12-22] MEDS: Sucralfate 1 GM TAB PO ×4 (08:09→22:09)
[2024-12-22 08:12] LABS: Anion Gap 17.6 mmol/L (3-11); BUN 22 mg/dL (7-18); CO2 22.4 mmol/L (21.0-32.0); CREATININE 1.6 mg/dL (0.55-1.02); Calcium 10.9 mg/dL (8.5-10.1); Chloride 99 mmol/L (98-107); Estimated GFR 34.27 (mL/min/1.73m2); Glucose 395 mg/dL (74-106); Potassium 3.8 mmol/L (3.5-5.1); Sodium 139 mmol/L (136-145)
[2024-12-22 08:22] LABS: NT-proBNP 3002 pg/mL (<300)
[2024-12-22 08:24] LABS: Magnesium 1.7 mg/dL (1.8-2.4); TSH (W/Ref FT4) 0.75 uIU/mL (0.36-3.74)
--- NOTE | 2024-12-22 08:41 | DI.VRAD_ITS ---
PROCEDURE INFORMATION: Exam: XR Abdomen Exam date and time: 12/22/2024 5:25 AM Age: 69 years old Clinical indication: Vomiting, eval for obstruction TECHNIQUE: Imaging protocol: Radiologic exam of the abdomen. Views: Frontal supine view of the abdomen. 1 View. COMPARISON: CT ABDOMEN PELVIS W 12/21/2024 12:58 PM (report not provided) FINDINGS: Gastrointestinal tract: The small bowel is not significantly air-distended. Air and stool are present within large bowel. Intraperitoneal space: There are again surgical clips in the right upper quadrant. Bones/joints: Degenerative changes again involve the spine. IMPRESSION: Nonspecific bowel gas pattern. Dictated and Authenticated by: Beau Schaffer MD. Orderin John Law MD
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
[2024-12-22 10:11] LABS: COVID-19 PCR Negative (Negative); Influenza A PCR Negative (Negative); Influenza B PCR Negative (Negative); RSV PCR Negative (Negative)
[2024-12-22 10:15] LABS: Source Nasopharynx
--- NOTE | 2024-12-22 10:52 | PHA.REVIEW2 ---
Pharmacy Admission Review Admission Clinical Review Admission Pharmacy Review: Intractable nausea and vomiting (Acute) metoclopramide (From Reglan) Allergy (Verified 12/22/24 04:34) Other (See Comment) pollen extracts Allergy (Verified 12/22/24 04:34) itching Benzodiazepines Adverse Reaction (Intermediate, Verified 12/22/24 04:34) paradoxical effect propoxyphene HCl (From Darvon) Adverse Reaction (Verified 12/22/24 04:34) Nausea Resuscitation Status Full Code Height 5 ft 3 in Weight 80.286 kg Comments Comments/Follow Ups: Watch kidney function (increase enoxaparin if it continues to improve) Pharmacy Admission Review Renal Dosing Renal Dosing: BUN 22 mg/dL (7-18) H 12/22/24 07:46 Creatinine 1.6 mg/dL (0.55-1.02) H 12/22/24 07:46 Medications needing adjustments: Intervened (CrCl 32.36 mL/min) List of meds needing interventions: Spoke with provider regarding recommended gabapentin dose of 900 mg/day (current dose is 1800mg/day). Provider wants to continue with home dose for now as kidney function seems to be improving. Anticoagulation Anticoagulation: Hgb 12.1 g/dL (11.2-15.7) 12/22/24 04:40 Hct 38.8 % (36.0-46.0) 12/22/24 04:40 Plt Count 277 10^3/uL (130-400) 12/22/24 04:40 Creatinine 1.6 mg/dL (0.55-1.02) H 12/22/24 07:46 DVT Prophylaxis: Reviewed (change to 40mg daily if kidney function continues to improve) Medications: Enoxaparin (30mg daily) Relevant Labs Relevant Labs: Sodium 139 mmol/L (136-145) 12/22/24 07:46 Potassium 3.8 mmol/L (3.5-5.1) 12/22/24 07:46 Chloride 99 mmol/L (98-107) 12/22/24 07:46 Magnesium 1.7 mg/dL (1.8-2.4) L 12/22/24 07:46 Electrolytes, C-Reactive P, ESR: Reviewed (Mg 1.7) DM Control DM Control: Glucose 395 12/22/24 07:46 Finger Stick Blood Glucose 353 0906 Finger Stick Blood Glucose 353 0906 Finger Stick Blood Glucose 419 0807 Finger Stick Blood Glucose 419 0805 Finger Stick Blood Glucose 419 0747 Finger Stick Blood Glucose 419 0747 DM Control: Reviewed Insulin Dosing, Diabetic Medication: Has order for SS insulin and glargine 16 units every morning Cardiac Review Cardiac Review: NT-Pro-B Natriuret Pep 3002 pg/mL (<300) H 12/22/24 07:46 Blood Pressure / Heart Rate 182/83 : 127 0749 Blood Pressure / Heart Rate 218/81 : 115 0601 Blood Pressure / Heart Rate 242/97 : 120 0556 Blood Pressure / Heart Rate 239/96 : 122 0530 Blood Pressure / Heart Rate 218/81 : 116 0503 Blood Pressure / Heart Rate 157/126 : 110 0447 Blood Pressure / Heart Rate 223/103 : 123 0433 BP, HR, EF%: Reviewed List meds needing interventions: Has order for isosorbide CR 30mg daily, lisinopril 2.5mg daily, metoprolol XL 50mg daily and torsemide 10mg daily QTc Review QTc: Reviewed (444 from 12/21/24) IV to PO Switch IV Medications: Reviewed (prochlorperazine) Home Meds Home Med List reviewed: Intervened Relevent Home Meds Not ordered & why?: bisacodyl (PRN) Called nurse to confirm allopurinol dose (says 100mg daily on home med list but prescription says 50mg daily) and ketoconazole (uses every 3 days). Per nurse allopurinol dose is 50mg daily (changed order) and patient is due to ketoconazole shampoo tomorrow. I changed order to patients own and set to start tomorrow morning. Patient aware that this will need to be brought in. Current Meds Current Medication Order Review: Intervened Comments: Added IV admission order set Changed timing of pantoprazole from 0830 to 0730 per pharmacy protocol Comments Comments/Follow Ups: Watch kidney function (increase enoxaparin if it continues to improve)
--- NOTE | 2024-12-22 11:08 | CHAPLAIN ---
Toyin was in bed resting, wiped out from throwing up. She said she's not feeling any better and that no one seems to know why she's so sick. I know Toyin from previous admission. It's been a few years since she's been here. I offered support, but didn't stay long as she was wanting to rest.
[2024-12-22 11:49] LABS: Bilirubin Negative (Negative); Blood Moderate (Negative); Clarity Clear (Clear); Glucose 500 mg/dL (Negative); Ketones Negative (Negative); Leukocyte Esterase Negative (Negative); Nitrite Negative (Negative); Urobilinogen 0.2 mg/dL (Up to 0.2)
[2024-12-22] MEDS: Ezetimibe 10 MG TAB PO (11:52)
[2024-12-22] MEDS: Enoxaparin 30 MG/0.3 ML SYR SC (11:53)
[2024-12-22] MEDS: Isosorbide Mononitrate 30 MG TABCR PO (11:53)
[2024-12-22 12:02] LABS: Bacteria Few HPF (Negative); C & S Indicated? No; Casts Negative LPF (Negative); Crystals Negative HPF (Negative); Epithelial Cells Rare HPF (Negative); Mucus Negative (Negative); Other Cells Negative (Negative)
--- NOTE | 2024-12-22 15:15 | RT.EKG_ITS ---
APPROVED REPORT Exam: Resting ECG Reason for Exam: variable MD-wide QRS noted on tele Patient Location: I HR:86 bpm ECG Measurements Heart Rate 86 AXIS MD 240 P 12 QRSd 84 QRS 39 QT 411 T 86 QTc 491 Conclusion Sinus rhythm...normal P axis, V-rate 60- 99 Prolonged MD interval...MD >220, V-rate 50- 90
[2024-12-22] MEDS: Acetaminophen 500 MG TAB PO (15:40)
--- NOTE | 2024-12-22 19:00 | RT.EKG_ITS ---
APPROVED REPORT Exam: Resting ECG Reason for Exam: change Patient Location: I HR:75 bpm ECG Measurements Heart Rate 75 AXIS NJ 254 P 6 QRSd 84 QRS 9 QT 438 T 64 QTc 488 Conclusion Sinus rhythm...normal P axis, V-rate 60- 99 Multiple ventricular premature complexes...V complexes w/ short R-R intervls Prolonged NJ interval...NJ >220, V-rate 50- 90
[2024-12-22] MEDS: Gabapentin 600 MG TAB 1200 MG PO (19:51)
--- NOTE | 2024-12-22 20:19 | RESPIRATORY ---
RT spoke with patient for KINGSLEY diagnosis. Pt. states that she does use CPAP without O2, but did not bring it here with her. Patient refused to use the hospital's CPAP by saying she is restlessness and can't tolerate any positive pressure on her face at this time. RT adviced pt. to let us know if she decides to use hosital's CPAP later. Pt. is unsure of home CPAP settings and the DME.
[2024-12-22] MEDS: Normal Saline Flush 10 ML SYR IVP (22:09)
[2024-12-23] MEDS: Normal Saline 1,000 ML 125 ML IV (03:08)
[2024-12-23 03:11] VITALS: BP 99/59; PULSE 74; RESP 20; TEMP 36; O2SAT 97
[2024-12-23 07:00] LABS: HCT 33.2 % (36.0-46.0); HGB 10.5 g/dL (11.2-15.7); MCH 29.7 pg (27.0-33.0); MCHC 31.6 % (32.0-36.0); MCV 94 fL (80-95); MPV 10.8 fL (8.0-11.0); Platelet Count 245 10^3/uL (130-400); RBC 3.53 10^6/uL (3.93-5.22); RDW 13.8 % (11.7-14.6); RDW-SD 46.4 fL; WBC 10.68 10^3/uL (4.4-10.8)
[2024-12-23 07:18] LABS: ALT 32 U/L (14-59); AST 32 U/L (15-37); Albumin 3.4 g/dL (3.4-5.0); Alkaline Phosphatase 102 U/L (46-116); Anion Gap 7.7 mmol/L (3-11); BUN 37 mg/dL (7-18); Bilirubin, Total 0.5 mg/dL (0.2-1.0); CO2 27.3 mmol/L (21.0-32.0); CREATININE 2.1 mg/dL (0.55-1.02); Calcium 9.5 mg/dL (8.5-10.1); Chloride 104 mmol/L (98-107); Estimated GFR 24.73 (mL/min/1.73m2); Glucose 142 mg/dL (74-106); Magnesium 1.9 mg/dL (1.8-2.4); Potassium 3.6 mmol/L (3.5-5.1); Sodium 139 mmol/L (136-145); Total Protein 7.6 g/dL (6.4-8.2)
[2024-12-23 07:21] VITALS: BP 149/69; PULSE 79; RESP 20; TEMP 37; O2SAT 97
[2024-12-23] MEDS: Allopurinol 100 MG TAB 50 MG PO (08:48)
[2024-12-23] MEDS: Aspirin E.C. 81 MG TABEC PO (08:49)
[2024-12-23] MEDS: Gabapentin 300 MG CAP 600 MG PO (08:49)
[2024-12-23] MEDS: Isosorbide Mononitrate 30 MG TABCR PO (08:49)
[2024-12-23] MEDS: Torsemide 20 MG TAB 10 MG PO (08:49)
[2024-12-23] MEDS: Ezetimibe 10 MG TAB PO (08:49)
[2024-12-23] MEDS: Metoprolol CR 50 MG TABCR PO (08:50)
[2024-12-23] MEDS: traMADol 50 MG TAB PO (08:50)
[2024-12-23] MEDS: Lisinopril 2.5 MG TAB PO (08:50)
[2024-12-23] MEDS: Pantoprazole 40 MG TABCR PO (08:50)
[2024-12-23] MEDS: Senna TAB 1 TAB PO (08:57)
[2024-12-23] MEDS: Insulin Aspart 300 UNITS/3 ML PEN SC (08:57)
[2024-12-23] MEDS: Insulin Glargine 300 UNITS/3 ML PEN 16 UNITS SC (08:58)
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
--- NOTE | 2024-12-23 11:42 | CMDISCH_ITS ---
Date of service: 12/23/24 Time of Service: 11:43 LACE Index Scoring Tool Questions: Length of Stay (in days): 1 Was the patient admitted via the E.D.?: Yes Comorbidities: Diabetes w/o Complication, Congestive Heart Failure and Liver or Renal Disease E.D. Visits: 4 Answers: Total Score: 13 Risk of Readmission: High Risk Care Management Discharge Plan Reason for Hospitalization: intractable nausea and vomiting Discharge Plan: Toyin is discharged home today with no new services. She states she feels ready to go home and is so much better. She will f/u with her PCP and continue per her plan of care. Toyin will transport home in a private vehicle. Patient/Family Education Needs: Review of discharge instructions, activity, limitations, and discuss ask me 3. SDOH Health Related Social Needs: Health related social needs education (Z55.6) Health related social needs details support, psych/emo tional and physical and social interaction
== END 2024-12-23 11:46 | disposition home or self-care (01) ==
LOC: ER 06:44 → MS 07:39
PROVIDERS: Admitting Provider Family Medicine; Emergency Provider Student in an Organized Health Care Education/Training Program; PCP Nurse Practitioner Family; Responsible Provider Family Medicine; Visit Provider Family Medicine
DX: R11.2 Nausea with vomiting, unspecified (principal); K57.30 Diverticulosis of large intestine without perforation or abscess without bleeding; E11.40 Type 2 diabetes mellitus with diabetic neuropathy, unspecified; Z79.4 Long term (current) use of insulin; E11.22 Type 2 diabetes mellitus with diabetic chronic kidney disease; N18.4 Chronic kidney disease, stage 4 (severe); D50.9 Iron deficiency anemia, unspecified; I25.10 Atherosclerotic heart disease of native coronary artery without angina pectoris; I50.22 Chronic systolic (congestive) heart failure; K75.81 Nonalcoholic steatohepatitis (NASH); K74.69 Other cirrhosis of liver; I13.0 Hypertensive heart and chronic kidney disease with heart failure and stage 1 through stage 4 chronic kidney disease, or unspecified chronic kidney disease; I08.0 Rheumatic disorders of both mitral and aortic valves; G89.29 Other chronic pain; K59.09 Other constipation; M51.379 Other intervertebral disc degeneration, lumbosacral region without mention of lumbar back pain or lower extremity pain; M54.17 Radiculopathy, lumbosacral region; F33.9 Major depressive disorder, recurrent, unspecified; E53.8 Deficiency of other specified B group vitamins; Z95.5 Presence of coronary angioplasty implant and graft; Z79.891 Long term (current) use of opiate analgesic
CPT/HCPCS: 00123; 36415; 80048; 80053; 80307; 82805; 82947; 83690; 85027; 87635; 87637; 96361; 96372; 96374; 96375; 96376; 99285; 74018; 81003; 81015; 83735; 83880; 84443; 85025; 93005; 93010; 99223; 99239; G0378; J0780; J1200; J1650; J1790; J1815; J2405

== ENCOUNTER 2025-01-05 00:48 | Outpatient (CLI) | payer MEDICARE, SELFPAY ==
--- NOTE | 2025-01-05 | DI.US_ITS ---
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 COMPARISON: CT CT ABDOMEN PELVIS CTA from 08/31/2024 US US ABDOMEN LIMITED from 11/13/[address] ABDOMEN PELVIS W from 12/21/2024 FINDINGS: LIVER: 19 cm in length . Increased echogenicity and coarsening of echotexture could indicate hepatic steatosis and or cirrhosis.. No focal liver lesions are seen.. GALLBLADDER: Cholecystectomy. Stable appearance of small gallbladder remnant. No pericholecystic fl uid identified. LAUREN'S SIGN: Negative. BILIARY SYSTEM: No intrahepatic or extrahepatic biliary ductal dilation. RIGHT KIDNEY: Normal size. No evidence of renal calculi. No evidence of hydronephrosis. No suspicious renal mass. Multiple right renal cysts. PANCREAS: Normal where visualized. ABDOMINAL AORTA AND IVC: Visualized portions normal caliber. ASCITES: None seen. IMPRESSION: Stable size and appearance of the liver with increased echogenicity and coarsening of the echotexture . No new abnormalities. DATA REPOSITORY:
== END 2025-01-05 01:08 ==
LOC: DI 00:48
PROVIDERS: PCP Nurse Practitioner Family; Visit Provider Nurse Practitioner Family
DX: K75.81 Nonalcoholic steatohepatitis (NASH)
CPT/HCPCS: 76705

== ENCOUNTER 2025-01-29 19:53 | Emergency (ER) | payer MEDICARE, SELFPAY ==
[2025-01-29] VITALS (38 sets, daily range): BP systolic 185–234; BP diastolic 65–127; PULSE 73–134; RESP 11–27; TEMP 36.8; O2SAT 93–100
--- NOTE | 2025-01-29 19:45 | RT.EKG_ITS ---
APPROVED REPORT Exam: Resting ECG Reason for Exam: dizziness Patient Location: E HR:83 bpm ECG Measurements Heart Rate 83 AXIS MA 270 P 28 QRSd 89 QRS 4 QT 385 T 48 QTc 452 Conclusion Sinus rhythm 83 normal axis no stemi
--- NOTE | 2025-01-29 20:00 | DI.CT_ITS ---
Exam(s) CT HEAD WO EXAM: CT HEAD WO CLINICAL HISTORY: LAZO, HTNsive emergency. TECHNIQUE: Imaging Protocol: Axial computed tomography images with coronal and sagittal reformatted images were created and reviewed COMPARISON: CT CT HEAD CERVICAL SPINE WO from 11/17/2022 FINDINGS: Ventricles and Extra axial spaces: Normal in size and morphology for the patient's age. Hemorrhage: None. Cerebral parenchyma: Acute territorial infarct. Midline shift: None. Brainstem/Cerebellum: Normal. Calvarium: Normal. Visualized Paranasal sinuses/Mastoids: Clear. Soft Tissues: Unremarkable. IMPRESSION: 1. No acute intracranial process. 2. The preliminary [facility] report was reviewed. RADIATION DOSE DELIVERED: 861mGy.cm Total DLP DATA REPOSITORY: All CT scans at this facility are submitted to the National Radiology Data Registry (NRDR) Dose Index Registry (DIR) with the [employer] ([employer]). RADIATION OPTIMIZATION: All CT scans at this facility use at least one of these dose optimization te chniques: automated exposure control; mA and/or kV adjustment per patient size (includes targeted exa ms where dose is matched to clinical indication); or iterative reconstruction.
--- NOTE | 2025-01-29 20:17 | W.ED.GENAD ---
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 cardiovascular disease) (Chronic) Cardiac cath, with stent, summer 2020 ([facility])(3 vessel CAD (LAD,LCX,RCA) CAD (coronary artery disease) (Chronic) Improved Echo, 05/2021. on Echo 04/16/21:Obstructive LAD and LCX .. Non obstructive disease LM Stent insertion of the mild LAD lesion.. Dual Platelet recommended. Congestive heart failure (Chronic ~02/2021) HFrEF (heart failure w/reduced ejection fraction) Medical History Myopia, bilateral Age-related nuclear cataract, bilateral Non-insulin dependent type 2 diabetes mellitus Hx acceptable A1C & Hypoglycemic episodes make for high risk mgmt ... HOLDing insulin, summer 2020. Palliative care encounter Insulin use (long-term) in type 2 diabetes Hospitalization or health care facility admission within last 6 months [facility] 11/22- 2' Fx pelvis/sacrum. [facility] 11/24--24 (horrible stay) .. d/c w/o HH hand-off. 12/17 HV. Diverticulosis Closed fracture of left inferior pubic ramus ED/Hosp/Rehab, winter/spring 2022.. with closed sacral Fx Piriformis syndrome of right side Per pt report, working with PT with good results. MRI? Bradycardia HR 43 in office, several readings @ home .. Walk around & call if this is repeated.. Trochanteric bursitis, right hip [facility]PO MEDROL 12/15/21 Peripheral vascular disease with claudication per [facility], 09/09/21.. ABIs show MILD occlusive dz @ foot/toe, B/L (06/16/21). Hx CAD, NSTEMI (02/2021).. 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) .. decreasing pressure settings by Dr. Shaffer (and DME mtg planned), 05/2021 Claudication of left lower extremity Long Hx painful, cold feet w/ advanced CVD. Borderline LFT ADRY. [facility] Vasc Dx mild atherosclerosis only. Ca deposits per Cardio. trial Rx? Neuropathy Presumed neuropathic pain of legs ... Distal from knees, B/L (left toes #4,5 seem ok).. 04/2021 Retroperitoneal abscess Pancreatic abscess (~01/17/21) Peripancreatic abscess with fluid collection Calculus of cystic duct Tubular adenoma (~12/2020) Chronic pain disorder Hx Lyrica, Gabapentin, Opioids, Tramadol. D/C'd with mixed pain symptoms. Ortho surgery helped (2019). MJ helping. Stressful life event affecting family Bro (had been in rehab, s/p ICU in 05/2020).. Withdrawal syndrome from Lyrica? Insomnia Sinus tachycardia Anxiety History of umbilical hernia Snoring Daytime somnolence Hyperlipidemia Medical marijuana use Nonalcoholic steatohepatitis Restless leg syndrome Doubting this Dx, 05/2020 History of transient ischemic attack 2005 Diabetic neuropathy a. Bilateral. ((old, presumed Dx? no clear Hx high A1Cs?)) Colitis seeing GI; amitriptyline stopped 9by GI? tried again by GI?)(Hx on-off ami fo rpain) Right flank pain it's really along rib line, with tenderness @ rib ?! Pain with laying pressure x months, with intermittent times of less pain. No SOB. Surgical History History of biopsy of soft tissue (~11/2024) punch biopsy R occipital scalp--spongiotic dermatitis SHARI Bello, [facility] History of local excision of skin lesion [facility]; Dr. Hagen; 11/04/23: back, nasolabial fold, upper back (6 total) all negative for malignancy. History of biopsy (09/07/23) shave biopsies L nasolabial fold and L upper back Dr Hagen History of ERCP (~01/17/21) with cholangioscopy for removal of retained stones(unsuccessful) complicated by post ERCP pancreatitis History of cardiac cath (~02/07/21) [facility] [place] 3 [place] dx (LAD,LCX,RCA) w/elevated LV EDP S/P cardiac cath (~01/2021) [facility] [place] coronary artery disease(LAD,LCX,RCA), elevated left ventricular end diastolic pressure H/O esophagogastroduodenoscopy (~12/25/20) [facility] random gastric bx's negative for diagnostic abnormality; Distal esophagus bx's;squamos mucosa negative for diagnostic abnormality.oxyntocardiac mucosa negative for intestinal metaplasia. Proximal esophagus biopsies;squamos muscosa negative for diagnostic abnormality; Gastric polyp-fragments of fundic gland polyp. Hx of colonoscopy (~12/25/20) 2020-Tubular adenomas x10 Repair, Tendon or Muscle Achilles Oophrectomy, Left Repair of umbilical hernia with mesh Endometrial Ablation Cholecystectomy (~2015) Arthroplasty of knee Family History Mother Diabetes Father Heart disease Substance abuse Brother Substance abuse Depression Heart disease Social History Smoking/Tobacco Use Status: Never Smoking risk assessment performed?: Yes Alcohol Intake: former Drug use: Occasionally Substance use type: marijuana Details: Medical marijuana Adopted: No Caregiver/Support person: No Foster care: No Household members: none Housing: other Do you need help understanding health information?: Rarely current occupation: [employer], [employer] Sexually active: No Do you think of yourself as: straight/heterosexual Current gender identity: female Do you feel safe at home: Yes Do you feel safe in your relationship?: Yes Additional Social history: lives alone
[2025-01-29 20:21] LABS: Abs Immature Grans 0.03 10^3/uL (0.0-0.06); Absolute Basophil Count 0.03 10^3/uL (0.0-0.2); Absolute Eosinophil Count 0.23 10^3/uL (0.0-0.7); Absolute Lymphocyte Count 1.85 10^3/uL (1.2-3.4); Absolute Monocyte Count 0.59 10^3/uL (0.1-0.8); Absolute Neutrophil Count 4.74 10^3/uL (1.2-6.7); Basophils % 0.4 %; Eosinophils % 3.1 %; HCT 32.7 % (36.0-46.0); HGB 10.2 g/dL (11.2-15.7); Immature Grans % 0.4 %; Lymphocytes % 24.8 %; MCH 28.7 pg (27.0-33.0); MCHC 31.2 % (32.0-36.0); MCV 92 fL (80-95); MPV 11.1 fL (8.0-11.0); Monocytes % 7.9 %; Neutrophils % 63.4 %; RBC 3.56 10^6/uL (3.93-5.22); RDW 13.3 % (11.7-14.6); RDW-SD 45.9 fL; WBC 7.47 10^3/uL (4.4-10.8)
[2025-01-29 20:35] LABS: Diff Comment PLT Morph Reviewed; RBC Morphology Normal
[2025-01-29 20:36] LABS: Platelet Count 193 10^3/uL (130-400)
[2025-01-29] MEDS: Lisinopril 2.5 MG TAB PO (20:39)
[2025-01-29] MEDS: Torsemide 10 MG TAB PO (20:39)
[2025-01-29 20:41] LABS: Bilirubin Negative (Negative); Blood Trace-intact (Negative); Clarity Clear (Clear); Glucose Negative (Negative); Ketones Negative (Negative); Leukocyte Esterase Negative (Negative); Nitrite Negative (Negative); Urobilinogen 0.2 mg/dL (Up to 0.2); pH 5.5 (5-8)
[2025-01-29 20:45] LABS: ALT 78 U/L (14-59); AST 68 U/L (15-37); Albumin 3.7 g/dL (3.4-5.0); Alkaline Phosphatase 121 U/L (46-116); Anion Gap 8.5 mmol/L (3-11); BUN 33 mg/dL (7-18); Bilirubin, Total 0.4 mg/dL (0.2-1.0); CO2 26.5 mmol/L (21.0-32.0); CREATININE 1.7 mg/dL (0.55-1.02); Chloride 104 mmol/L (98-107); Estimated GFR 31.86 (mL/min/1.73m2); Glucose 157 mg/dL (74-106); Potassium 4.2 mmol/L (3.5-5.1); Sodium 139 mmol/L (136-145); TSH (W/Ref FT4) 1.99 uIU/mL (0.36-3.74); Total Protein 7.8 g/dL (6.4-8.2); Troponin I 11 ng/L (<or=51)
[2025-01-29 20:49] LABS: Bacteria Few HPF (Negative); C & S Indicated? No; Crystals Negative HPF (Negative); Epithelial Cells Few HPF (Negative); Mucus Negative (Negative)
--- NOTE | 2025-01-29 21:06 | DI.VRAD_ITS ---
PROCEDURE INFORMATION: Exam: CT Head Without Contrast Exam date and time: 01/29/2025 8:34 PM Age: 69 years old Clinical indication: Pain; Headache not specified; Hypertensive TECHNIQUE: Imaging protocol: Computed tomography of the head without contrast. COMPARISON: CT HEAD CERVICAL SPINE WO 11/17/2022 5:04 PM FINDINGS: Brain: Mild cerebral atrophy. Cerebral ventricles: No ventriculomegaly. Paranasal sinuses: Visualized sinuses are unremarkable. No fluid levels. Mastoid air cells: Visualized mastoid air cells are well aerated. Bones: Unremarkable. No acute fracture. Soft tissues: Unremarkable. Other findings: No evidence for acute hemorrhage or edema. IMPRESSION: 1. No acute intracranial abnormalities identified. 2. Mild cerebral atrophy. Dictated and Authenticated by: Pelon Londono MD. Orderin Trevon Law MD
[2025-01-29] MEDS: Normal Saline 500 ML IV (21:09)
[2025-01-29] MEDS: hydrALAZINE 20 MG/ML VIAL 10 MG IVP (21:17)
--- NOTE | 2025-01-29 21:51 | NUR.NOTE ---
spoke with charge nurse Deedee Em RN in regards to following up with provider for medication for increased anxiety/ borderline panic. this tech writer stepped off the floor briefly and when I returned I was made aware of the patient self removing her IV site. This tech writer followed up with the provider and no further orders were to be put in at this time.
[2025-01-29] MEDS: hydrOXYzine HCL 25 MG TAB PO (22:00)
[2025-01-29] MEDS: Ondansetron O.D.T. 4 MG TABEF PO (23:29)
== END 2025-01-29 23:51 | disposition home or self-care (01) ==
PROVIDERS: Emergency Provider Physician Assistant; PCP Nurse Practitioner Family
DX: I16.0 Hypertensive urgency (principal); I10 Essential (primary) hypertension; E11.3291 Type 2 diabetes mellitus with mild nonproliferative diabetic retinopathy without macular edema, right eye; E11.40 Type 2 diabetes mellitus with diabetic neuropathy, unspecified
CPT/HCPCS: 80053; 93005; 99285; 70450; 81003; 81015; 84443; 84484; 85025; 93010; 99284; J0360

== ENCOUNTER → 2025-02-01 13:47 | Outpatient (BNVA) | payer MEDICARE, SELFPAY | PROVIDERS: PCP Nurse Practitioner Family; Referring Provider Nurse Practitioner Family; Visit Provider Physical Therapy Assistant | DX: Z12.11 Encounter for screening for malignant neoplasm of colon (principal); R13.10 Dysphagia, unspecified; Z86.0101 Personal history of adenomatous and serrated colon polyps | CPT/HCPCS: 99214 ==

== ENCOUNTER 2025-02-02 09:56 | Outpatient (REF) | payer MEDICARE, SELFPAY ==
[2025-02-02 16:39] LABS: Anion Gap 12.9 mmol/L (3-11); BUN 59 mg/dL (7-18); CO2 23.1 mmol/L (21.0-32.0); CREATININE 1.8 mg/dL (0.55-1.02); Calcium 9.7 mg/dL (8.5-10.1); Chloride 101 mmol/L (98-107); Estimated GFR 29.75 (mL/min/1.73m2); Glucose 269 mg/dL (74-106); Potassium 4.6 mmol/L (3.5-5.1); Sodium 137 mmol/L (136-145)
== END 2025-02-02 09:57 | disposition home or self-care (01) ==
LOC: LBN 09:56
PROVIDERS: PCP Nurse Practitioner Family; Visit Provider Nurse Practitioner Family
DX: N28.9 Disorder of kidney and ureter, unspecified (principal); I50.9 Heart failure, unspecified
CPT/HCPCS: 80048

== ENCOUNTER → 2025-02-05 10:03 | Outpatient (BNVA) | payer MEDICARE, SELFPAY | PROVIDERS: PCP Nurse Practitioner Family; Referring Provider Nurse Practitioner Family; Visit Provider Podiatrist | DX: G57.52 Tarsal tunnel syndrome, left lower limb (principal); F45.42 Pain disorder with related psychological factors; F32.1 Major depressive disorder, single episode, moderate; M67.02 Short Achilles tendon (acquired), left ankle; M76.822 Posterior tibial tendinitis, left leg; M76.71 Peroneal tendinitis, right leg; M20.42 Other hammer toe(s) (acquired), left foot; M79.675 Pain in left toe(s) | CPT/HCPCS: 20600; J0702; J1100 ==

== ENCOUNTER 2025-02-09 09:05 | Day surgery (SDC) | payer MEDICARE, SELFPAY ==
--- NOTE | 2025-02-08 19:50 | PDOC.DSDIS_ITS ---
Date of service: 02/09/25 Discharge Plan Disposition Patient Disposition: Home Condition: Good Discharge Details Reason For Visit: EGD yand colonoscopy Attending Provider: Yann Shaffer Primary Care Provider: Naila Medina Home Meds and New Rx's Prescriptions: Continued (DME) blood-glucose meter Kit See Rx Instructions .ROUTE .MEDSUPPLY Qty: 1 0RF Patient Comments: dexcom in place on RUE Rx Instructions: One Touch Ultra please. senna 8.6 mg capsule 8.6 mg PO DAILY Qty: 90 12RF ezetimibe [Zetia] 10 mg tablet 10 mg PO DAILY Qty: 90 3RF Rx Instructions: Re-starting (Card 11/19/22). She has it. tramadol 50 mg tablet 50 mg PO BID MDD 100mg Qty: 60 2RF Rx Instructions: Re-start after Naltrexone; monitor for constipation (add colace qHS) peg 3350-electrolytes [Golytely] 236-22.74-6.74 -5.86 gram recon soln 240 ml PO Q10M Qty: 4000 0RF Rx Instructions: until fecal effluent is clear sertraline 25 mg tablet 25 mg PO DAILY Qty: 30 3RF allopurinol 100 mg tablet 100 mg PO DAILY Qty: 90 3RF torsemide 20 mg tablet 20 mg PO DAILY Qty: 90 3RF insulin glargine [Lantus Solostar U-100 Insulin] 100 unit/mL (3 mL) insulin pen 35 unit subcut QAM MDD 35 units Qty: 15 3RF Rx Instructions: For diabetes multivitamin Tablet 1 tab PO DAILY 90 Days Qty: 90 12RF Rx Instructions: Take one tablet by mouth once daily as directed. acetaminophen 500 mg capsule 500 mg PO Q4H PRN lidocaine HCl [Aspercreme (lidocaine HCl)] 4 % cream 1 applic topical QID PRN nitroglycerin 0.4 mg tablet, sublingual 0.4 mg SL Q5M PRN (Reason: chest pain) Qty: 100 0RF Patient Comments: last use 6 months ago Rx Instructions: do not exceed 3 doses per episode triamcinolone acetonide 0.1 % cream 1 applic topical BID ketoconazole 2 % shampoo 1 applic topical ONCE Patient Comments: APPLY TO AFFECTED AREA(S) DIRECTED EVERY 3 DAYS FOR 4 WEEKS aspirin [Adult Aspirin Regimen] 81 mg tablet,delayed release (DR/EC) 81 mg PO DAILY Qty: 90 3RF Rx Instructions: indefinitely per [facility] Echo results 04/16/21 (DME) lancets [OneTouch Delica Lancets] 30 gauge misc See Rx Instructions .ROUTE .MEDSUPPLY Qty: 100 2RF Rx Instructions: to check BS daily to keep A1c <8 DM E11.9 (DME) pen needle, diabetic [BD Ultra-Fine Dionna Pen Needle] 32 gauge x 5/32 needle See Rx Instructions .ROUTE .MEDSUPPLY Qty: 100 3RF Rx Instructions: Daily with lantus insulin for goal A1C <7% for E11.9 (DME) OneTouch Ultra Test Strip See Rx Instructions .Route Qty: 100 3RF Rx Instructions: to check blood sugars daily to keep A1c <8. DX E11.9 gabapentin 300 mg capsule See Rx Instructions .ROUTE .COMPLEX Qty: 180 5RF Dose Instruction: TAKE TWO CAPSULES BY MOUTH EVERY MORNING AND FOUR CAPSULES BY MOUTH IN THE EVENING Rx Instructions: TAKE TWO CAPSULES BY MOUTH EVERY MORNING AND FOUR CAPSULES BY MOUTH IN THE EVENING metoprolol succinate 50 mg tablet extended release 24 hr 50 mg PO DAILY Qty: 90 3RF pantoprazole 40 mg tablet,delayed release (DR/EC) See Rx Instructions .ROUTE .COMPLEX Qty: 90 3RF Dose Instruction: TAKE ONE TABLET BY MOUTH EVERY DAY Rx Instructions: TAKE ONE TABLET BY MOUTH EVERY DAY isosorbide mononitrate 30 mg tablet extended release 24 hr See Rx Instructions .ROUTE .COMPLEX Qty: 90 3RF Dose Instruction: TAKE ONE TABLET BY MOUTH EVERY MORNING Rx Instructions: TAKE ONE TABLET BY MOUTH EVERY MORNING lisinopril 5 mg tablet 7.5 mg PO QDAY MDD 7.5mg Qty: 45 3RF Patient Comments: pt. reports taking 5 mg prochlorperazine maleate 10 mg tablet See Rx Instructions .ROUTE .COMPLEX Qty: 60 0RF Dose Instruction: TAKE 1 TABLET BY MOUTH TWO TIMES A DAY NEEDED VOMITING/NAUSEA Rx Instructions: TAKE 1 TABLET BY MOUTH TWO TIMES A DAY NEEDED VOMITING/NAUSEA sucralfate 1 gram tablet 1 g PO 4XD PRN Patient Comments: TAKE ONE TABLET BY MOUTH FOUR TIMES A DAY BEFORE MEALS AND AT BEDTIME; TRIAL START 1 PER DAY FOR GASTRITIS/COLITIS. MAKE INTO A SLURRY calcium carbonate 500 mg calcium (1,250 mg) Tablet,Chewable 500 - 1,000 mg PO Q4H PRN PRN Discontinued polyethylene glycol 3350 17 gram/dose powder 238 g PO ONCE Qty: 238 0RF Rx Instructions: take per colonoscopy instructions bisacodyl [Dulcolax (bisacodyl)] 5 mg tablet,delayed release (DR/EC) 5 mg PO ONCE Qty: 4 0RF Rx Instructions: take per colonoscopy instructions Discharge Instructions Instructions: Diverticulosis, Stomach polyps Additional Instructions: Toyin, it was very nice meeting you today, and I hope you feel well after the procedures. Things went very smoothly. With regards to your upper endoscopy, the esophagus is all normal down to the connection of the stomach. There is a very small sliding hiatal hernia which occurs when the top portion of your stomach slides along the opening of the diaphragm muscle. I do not suspect that this is causing any symptoms, and I do not recommend any treatment for it. Because of the concern for Hancock's esophagus on your previous endoscopy, I did do some biopsies of your GE junction, although based on the appearance of this today, I am very encouraged. You have multiple polyps within your stomach. They are all confined to an area that is generally thought to be safe, and these are extremely common among patients who use proton pump inhibitor therapies such as your Protonix. I did do some biopsies of your stomach to rule out Helicobacter pylori as a source of any stomach irritation. Your colonoscopy also went very smoothly. I did not see any signs of polyps today. You do have quite a bit of diverticulosis. This was also seen on your previous colonoscopy. I will attach some basic information here about typical approaches to diverticular management. Generally, I recommend a diet that is well-balanced, rich in fiber, and to focus on hydration with regular water throughout the course of the day, as the main job of the colon is to reabsorb free water and prevent dehydration. Based on the type of polyps that you had removed during your last colonoscopy, I do recommend a 5-year interval for your next 1. Will see with the results from the upper endoscopy show with regards to the pathology before making any recommendations on future EGD procedures. If you need anything, or have any questions at all, please do not hesitate to ask. 1. If tolerated, consume a soft, low fiber diet for 1-2 days. 2[address] Do not drive, drink alcohol, operate machinery, make critical decisions, or do activities that require coordination or balance for 24 hours. 3. Because air was put into your colon during the procedure, expelling air from your rectum (passing gas or farting) is normal. 4. You may not have a bowel movement for 1-3 days because of the colonoscopy prep. This is normal. 5. You may experience a sore throat for 24 to 48 hours. You may use throat lozenges or gargle with warm salt water to relieve the discomfort. 6. Because air was put into your stomach during the procedure, you may experience some belching. 7. Go directly to the emergency room if you notice any of the following: Develop chills (warm to touch), or if you have a thermometer and your temperature is above 101 Difficulty breathing or difficultly swallowing Persistent vomiting Severe abdominal pain, other than gas cramps Severe chest pain Black, tarry stools Any bleeding ? exceeding one tablespoon 8. Call your physician if the site where your intravenous was started becomes red, swollen, painful, and warm to touch. 9. Your physician has reviewed your pre-procedure medications. Please continue to take those medications as previously ordered. You will be given specific information/education regarding any changes to your medications before leaving. Activity:: Activity as Tolerated Diet:: As Tolerated Discharge Orders Discharge Orders: Discharge Order (Routine); Ordered 02/08/25 Ordered By: Yann Shaffer DS: Diagnosis Discharge Diagnosis (1) Encounter for screening colonoscopy: Status: Acute Asessment and Plan: Follow-up on EGD biopsy results; negative screening colonoscopy, recommend 5- year interval follow-up
--- NOTE | 2025-02-08 19:53 | W.PM.ENDDOP ---
Date of service: 02/09/25 Time of Service: 12:29 Endoscopy Report DATE OF PROCEDURE: 02/09/25 PRE-OP DIAGNOSIS: Screening EGD for Hancock's esophagus and screening colonoscopy POST-OP DIAGNOSIS: other (Gastric polyps, grade 1 sliding hiatal hernia, diverticulosis) PROCEDURE: EGD with biopsies and colonoscopy SURGEON: Yann Shaffer ANESTHESIA TYPE: General:No Airway ESTIMATED BLOOD LOSS: 5 PATHOLOGY: other (Nondirected biopsies of gastric antrum and body to rule out Helicobacter pylori; four-quadrant biopsies of GE junction) COMPLICATIONS: None DISPOSITION: same day INDICATIONS: Toyin is a 69 year old woman with refractory dyspepsia depsite PPI therapy and a history of adenomatous polyps. She needs and EGD and a colonoscopy PREP: Miralax/Dulcolax PROCEDURE START TIME: 11:28 PROCEDURE END TIME: 12:14 COLONOSCOPY RETRACTION TIME: 7 FINDINGS: Grade 1 sliding hiatal hernia, gastric fundic polyps; diverticulosis PROCEDURE DESCRIPTION: After the initiation of monitored anesthetic care, and with the assistance of a bite block, I advanced a standard gastroscope through the mouth past the hypopharynx and into the esophagus.? Under the direct vision of the scope, I advanced down the esophagus towards the stomach.? The upper, mid, and lower esophagus were normal and healthy appearing. I did not see any strictures. There is a small sliding hiatal hernia. The Z-line was totally regular, and narrowband imaging was used to assist with the analysis here. Clinical features did not appear consistent with Hancock's esophagus. Advanced across the GE junction with ease, and insufflated the stomach into the rugae were obliterated. I performed retroflexion. Again, there is a grade 1 hiatal hernia. There are innumerable gastric polyps. Narrowband imaging was used to assist with these as well. Clinical features appeared consistent with fundic gland polyps, and these were all found proximal to the incisura angularis. None of them appeared to exceed 1 cm in size. As she has already had sampling of these confirming the presence of fundic gland polyps, I did not perform any resections today. The gastric antrum and pylorus were totally normal-appearing, and advanced into the duodenum with ease. The duodenum was normal. I then brought the camera back up into the stomach and perform some nondirected cold forceps biopsies of the gastric antrum and body to rule out Helicobacter pylori. The camera was then brought back up to the area of the GE junction, and four-quadrant biopsies were performed. I then emptied the stomach, brought the camera out along the length of the esophagus 1 last time. No other abnormalities were appreciated. We then moved Toyin into the left lateral decubitus position. Care was taken to ensure that she was padded and supported appropriately. I began by performing an external anorectal exam.? Perineum and skin were normal, as was the anal verge.? There was no evidence of external hemorrhoids.? Next, I performed a digital rectal exam.? I did not appreciate any abnormal findings.? Next, I advanced a colonoscope into the rectal vault.? I performed retroflexion. This appeared normal using insufflation, I then advanced the colonoscope beyond the rectal folds and into the sigmoid colon before advancing towards the cecum.? There is extensive cavernous diverticulosis. Great care was taken to carefully navigate the sigmoid segment maintain the true lumen. This took quite some time. Beyond the sigmoid, the remainder of the colon was relatively easy to traverse. The scope was noted to be in the cecum by identification of the ileocecal valve and appendiceal orifice.? I then began withdrawing the colonoscope using repeated irrigation as necessary for full evaluation of the colonic mucosa. ?Once the scope was withdrawn to the level of the rectum, great care was taken to examine portions of the rectal folds.? Finally, the scope was withdrawn and the patient was brought to the same-day surgery recovery unit as the anesthetic wore off. ?The findings and instructions were shared with the patient prior to discharge. The [place] bowel prep score from right to left was 3, 3, 2
[2025-02-09 09:25] VITALS: BP 145/71; PULSE 90; RESP 18; TEMP 36.7; O2SAT 97
[2025-02-09] MEDS: Lactated Ringers 1,000 ML 80 ML IV (09:55)
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
[2025-02-09 11:01] VITALS: BMI 30.2
--- NOTE | 2025-02-09 11:29 | STOM_PTH ---
PATIENT: Toyin Coley I LOC: [facility] U#:[id number] AGE/SX: 69/F ROOM: RE02/09/[address]: Yann Shaffer MD : [id number] BED: DIS: 02/09/2025 SPEC #: [id number] RECD: 02/09/25 12:43 STATUS: MADHU RE #: [id number] STACY: 02/09/25 11:[address]: Yann Shaffer DEPT: Surgical Specimen RECD BY: Lalitha Hsu ENTERED: 02/09/25 12:43 SP TYPE: STOMACH OTHR DR: Naila Medina APRN Tissues: 1 - STOMACH BIOPSY 2 - STOMACH BIOPSY 3 - ESOPHAGUS BIOPSY Procedures: GROSS AND MICRO LEVEL 4 Comments: [id number]
[2025-02-09 12:20] VITALS: BP 120/66; PULSE 81; RESP 18; TEMP 36.2; O2SAT 100
[2025-02-09 12:50] VITALS: BP 146/64; PULSE 80; RESP 18; TEMP 36.6; O2SAT 98
--- NOTE | 2025-02-09 13:28 | W.ANESPOSTOP ---
Postoperative Evaluation Date, Time and Location Date Performed: 02/09/25 Time Performed: 13:15 Patient Location: Day Surgery Unit Vital Signs Most Recent Imported Vital Signs: Most Recent Vital Signs Temp Pulse Resp BP Pulse Ox 36.6 C 80 18 146/64 H 98 02/09/25 12:50 02/09/25 12:50 02/09/25 12:50 02/09/25 12:50 02/09/25 12:50 Pain Score Most Recent Pain Score: Most Recent Pain Score Pain Level 0 02/09/25 12:50 Assessment Mental Status: Awake (Alert & Oriented to Patient Baseline) Airway and Respiratory Function: Patent airway with normal (patient baseline) respiratory exam Cardiovascular Function: Hemodynamically Stable Hydration Status: Adequately Hydrated Nausea & Vomiting: No Nausea or Vomiting Pain: Pt. Denies Any Pain Peripheral Nerve Block: Patient did not receive a nerve block
== END 2025-02-09 13:06 | disposition home or self-care (01) ==
LOC: SUR 09:05
PROVIDERS: PCP Nurse Practitioner Family; Visit Provider Surgery
PROC: (CPT 43239; principal; 2025-02-09 10:30)
DX: Z12.11 Encounter for screening for malignant neoplasm of colon (principal); G47.30 Sleep apnea, unspecified; I10 Essential (primary) hypertension; K21.9 Gastro-esophageal reflux disease without esophagitis; Z86.79 Personal history of other diseases of the circulatory system; Z86.0101 Personal history of adenomatous and serrated colon polyps; K44.9 Diaphragmatic hernia without obstruction or gangrene; K57.30 Diverticulosis of large intestine without perforation or abscess without bleeding; K31.7 Polyp of stomach and duodenum; K22.89 Other specified disease of esophagus
CPT/HCPCS: 43239; G0105; 88305; J2003; J2371; J2405; J2704

== ENCOUNTER → 2025-03-07 09:04 | Outpatient (BNVA) | payer MEDICARE, SELFPAY | PROVIDERS: PCP Nurse Practitioner Family; Referring Provider Nurse Practitioner Family; Visit Provider Podiatrist | DX: M20.42 Other hammer toe(s) (acquired), left foot; M67.02 Short Achilles tendon (acquired), left ankle; F45.42 Pain disorder with related psychological factors; F32.1 Major depressive disorder, single episode, moderate; E11.9 Type 2 diabetes mellitus without complications; E79.0 Hyperuricemia without signs of inflammatory arthritis and tophaceous disease; L97.522 Non-pressure chronic ulcer of other part of left foot with fat layer exposed; Z79.4 Long term (current) use of insulin | CPT/HCPCS: 99214 ==

== ENCOUNTER 2025-03-07 09:54 | Outpatient (CLI) | payer MEDICARE, SELFPAY ==
[2025-03-07 10:31] LABS: Uric Acid 7.8 mg/dL (2.6-6.0)
[2025-03-07 11:02] LABS: Hemoglobin A1C 7.6 % (<5.7)
[2025-03-07 11:09] LABS: Vitamin B12 600 pg/mL (193-986)
[2025-03-08 21:29] LABS: Fructosamine 312 mcmol/L (200 - 285)
== END 2025-03-07 09:55 | disposition home or self-care (01) ==
LOC: LBO 09:54
PROVIDERS: Surgery; PCP Nurse Practitioner Family; Visit Provider Podiatrist
DX: I05.9 Rheumatic mitral valve disease, unspecified (principal); I25.10 Atherosclerotic heart disease of native coronary artery without angina pectoris; E11.40 Type 2 diabetes mellitus with diabetic neuropathy, unspecified; K21.9 Gastro-esophageal reflux disease without esophagitis; K22.2 Esophageal obstruction; R13.10 Dysphagia, unspecified; K75.81 Nonalcoholic steatohepatitis (NASH); K74.60 Unspecified cirrhosis of liver; D50.0 Iron deficiency anemia secondary to blood loss (chronic); D50.9 Iron deficiency anemia, unspecified; R06.02 Shortness of breath; E11.9 Type 2 diabetes mellitus without complications; L97.522 Non-pressure chronic ulcer of other part of left foot with fat layer exposed; E79.0 Hyperuricemia without signs of inflammatory arthritis and tophaceous disease; Z79.4 Long term (current) use of insulin
CPT/HCPCS: 36415; 82607; 82985; 83036; 84550

== ENCOUNTER 2025-06-04 04:58 | Inpatient (IN) | payer MEDICARE, SELFPAY ==
[2025-06-04] VITALS (37 sets, daily range): BP systolic 98–159; BP diastolic 35–113; PULSE 94–133; RESP 13–27; TEMP 36.7–37.6; O2SAT 96–100
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
[2025-06-04 05:14] LABS: BE (Venous) -9 mmol/L (-2-3); HCO3 (Venous) 17 mmol/L (23-28); O2 Sat (Venous) 49 %; TCO2 (Venous) 16 mmol/L (24-29); pCO2 (Venous) 34 mmHg (41-51); pO2 (Venous) 30 mmHg
[2025-06-04] MEDS: Pantoprazole 40 MG VIAL IVP (05:14)
[2025-06-04] MEDS: Normal Saline 500 ML IV (05:14)
[2025-06-04 05:16] LABS: Abs Immature Grans 0.08 10^3/uL (0.0-0.06); HCT 37.6 % (36.0-46.0); HGB 12.6 g/dL (11.2-15.7); Immature Grans % 0.5 %; MCH 31.0 pg (27.0-33.0); MCHC 33.5 % (32.0-36.0); MCV 93 fL (80-95); MPV 10.9 fL (8.0-11.0); Platelet Count 236 10^3/uL (130-400); RBC 4.06 10^6/uL (3.93-5.22); RDW 15.9 % (11.7-14.6); RDW-SD 53.8 fL; WBC 15.23 10^3/uL (4.4-10.8)
[2025-06-04 05:49] LABS: AST 28 U/L (15-37); Albumin 4.0 g/dL (3.4-5.0); Alkaline Phosphatase 95 U/L (46-116); Anion Gap 20.6 mmol/L (3-11); BUN 58 mg/dL (7-18); Bilirubin, Total 0.6 mg/dL (0.2-1.0); CO2 19.4 mmol/L (21.0-32.0); Calcium 10.6 mg/dL (8.5-10.1); Chloride 96 mmol/L (98-107); Estimated GFR 19.02 (mL/min/1.73m2); Glucose 441 mg/dL (74-106); Lipase 79 U/L (<78); Magnesium 1.7 mg/dL (1.8-2.4); Potassium 4.1 mmol/L (3.5-5.1); Sodium 136 mmol/L (136-145); Total Protein 8.7 g/dL (6.4-8.2)
[2025-06-04] MEDS: hydrOXYzine PAMOATE 25 MG CAP PO (06:39)
[2025-06-04] MEDS: Lactated Ringers 1,000 ML 1000 ML IV (06:40)
[2025-06-04 06:42] LABS: ALT 140 U/L (14-59)
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
[2025-06-04] MEDS: Insulin REGULAR-Human 100 UNITS/ML UNIT 10 UNITS SC (07:34)
[2025-06-04 07:42] LABS: Glucose 250 mg/dL (Negative)
[2025-06-04 07:53] LABS: C & S Indicated? No
[2025-06-04] MEDS: Gabapentin 300 MG CAP (08:03)
--- NOTE | 2025-06-04 08:53 | W.PC.ACHO ---
Registration Status: ADM IN Primary Language: Preferred Language: Italian ED Information & Data Chief Complaint Nausea/Vomit/Diar 06/04/25 05:09 Triage Note Emesis since 06/04/25 04:48 looked like coffee grounds today which prompted call to 911 Medical / Surgical History (Last Reviewed 03/07/25 @ 09:41 by Tawny Grullon DPM) Myopia, bilateral Age-related nuclear cataract, bilateral Non-insulin dependent type 2 diabetes mellitus Palliative care encounter Insulin use (long-term) in type 2 diabetes Hospitalization or health care facility admission within last 6 months Diverticulosis Closed fracture of left inferior pubic ramus Piriformis syndrome of right side Bradycardia Trochanteric bursitis, right hip Peripheral vascular disease with claudication Peripheral neuropathy Hammer toe Acute on chronic combined systolic and diastolic CHF (congestive heart failure) Heart failure with reduced ejection fraction 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 (06/02/21) KINGSLEY (obstructive sleep apnea) Claudication of left lower extremity Neuropathy Retroperitoneal abscess Pancreatic abscess (~01/17/21) Peripancreatic abscess Calculus of cystic duct Tubular adenoma (~12/2020) Chronic pain disorder Stressful life event affecting family Withdrawal syndrome Insomnia Sinus tachycardia Anxiety History of umbilical hernia Snoring Daytime somnolence Hyperlipidemia Medical marijuana use Nonalcoholic steatohepatitis Restless leg syndrome History of transient ischemic attack Diabetic neuropathy Colitis Right flank pain (Last Reviewed 06/04/25 @ 05:10 by Walt Prescott MD) History of biopsy of soft tissue (~11/2024) History of local excision of skin lesion History of biopsy (09/07/23) History of ERCP (~01/17/21) History of cardiac cath (~02/07/21) S/P cardiac cath (~01/2021) H/O esophagogastroduodenoscopy (~02/2025) Hx of colonoscopy (~02/2025) Repair, Tendon or Muscle Oophrectomy, Left Repair of umbilical hernia Endometrial Ablation Cholecystectomy (~2015) Arthroplasty of knee Most Recent Vital Signs Temperature 36.8 C 06/04/25 04:48 Temperature Source Tympanic 06/04/25 04:48 Pulse 121 H 06/04/25 07:40 Pulse 123 H 06/04/25 07:40 Respiratory Rate 22 06/04/25 07:40 Blood Pressure 143/67 H 06/04/25 07:16 Blood Pressure Mean 94 06/04/25 07:16 Pulse Oximetry 97 06/04/25 07:40 Oxygen Delivery Method Room Air 06/04/25 04:48 Oxygen Flow Rate 0 06/04/25 04:48 Allergies metoclopramide (From Reglan) Allergy (Verified 06/04/25 04:59) Other (See Comment) Pt states her girls told her, she does not know.HE pollen extracts Allergy (Verified 06/04/25 04:59) itching sneezing.HE Benzodiazepines Adverse Reaction (Intermediate, Verified 06/04/25 04:59) paradoxical effect to Lorazepam, per [facility] 01/2021 note as provided by daughter from [facility] portal.HE propoxyphene HCl (From Darvon) Adverse Reaction (Verified 06/04/25 04:59) Nausea Precautions Isolation Standard precaution 06/04/25 05:06 IV IV Catheter Type [Right Saline Lock Antecubital] IV Catheter Type [Left Saline Lock Antecubital] IV Catheter Gauge [Right 20 Antecubital] IV Catheter Gauge [Left 20 Antecubital] Diet Orders Category Date Time Status npo [Nothing Per Oral] [DIET] Nutrition 06/04/25 05:08 Active Diagnostics 06/04/25 06/04/25 06/04/25 Range/Units 07:28 05:12 04:55 WBC 15.23 H (4.4-10.8) 10^3/uL RBC 4.06 (3.93-5.22) 10^6/uL Hgb 12.6 (11.2-15.7) g/dL Hct 37.6 (36.0-46.0) % MCV 93 (80-95) fL MCH 31.0 (27.0-33.0) pg MCHC 33.5 (32.0-36.0) % RDW 15.9 H (11.7-14.6) % Plt Count 236 (130-400) 10^3/uL MPV 10.9 (8.0-11.0) fL Immature Gran % 0.5 % Neutrophils % 89.4 % Lymphocytes % 6.8 % Monocytes % 3.2 % Eosinophils % 0.0 % Basophils % 0.1 % Nucleated RBC % 0.0 (0.0-0.3) % Absolute Neutrophils 13.62 H (1.2-6.7) 10^3/uL Absolute Lymphocytes 1.04 L (1.2-3.4) 10^3/uL Absolute Monocytes 0.49 (0.1-0.8) 10^3/uL Absolute Eosinophils 0.00 (0.0-0.7) 10^3/uL Absolute Basophils 0.02 (0.0-0.2) 10^3/uL VBG pH 7.31 (7.31-7.41) VBG pCO2 34 L (41-51) mmHg VBG pO2 30 mmHg VBG HCO3 17 L (23-28) mmol/L VBG Total CO2 16 L (24-29) mmol/L VBG O2 Saturation 49 % VBG Base Excess -9 L (-2-3) mmol/L Sodium 136 (136-145) mmol/L Potassium 4.1 (3.5-5.1) mmol/L Chloride 96 L (98-107) mmol/L Carbon Dioxide 19.4 L (21.0-32.0) mmol/L Anion Gap 20.6 H (3-11) mmol/L BUN 58 H (7-18) mg/dL Creatinine 2.6 H (0.55-1.02) mg/dL Est GFR (CKD-EPI 2020) 19.02 (mL/min/1.73m2) Glucose 441 H (74-106) mg/dL Calcium 10.6 H (8.5-10.1) mg/dL Magnesium 1.7 L (1.8-2.4) mg/dL Total Bilirubin 0.6 (0.2-1.0) mg/dL AST 28 (15-37) U/L ALT 140 H (14-59) U/L Alkaline Phosphatase 95 (46-116) U/L Total Protein 8.7 H (6.4-8.2) g/dL Albumin 4.0 (3.4-5.0) g/dL Lipase 79 H (<78) U/L Urine Color Yellow (Yellow) Urine Clarity Clear (Clear) Urine pH 5.5 (5-8) Ur Specific [place] 1.010 (1.005-1.025) Urine Protein 100 H (Neg-Trace) mg/dL Urine Ketones Negative (Negative) mg/dL Urine Blood Moderate H (Negative) Urine Nitrite Negative (Negative) Urine Bilirubin Negative (Negative) Urine Urobilinogen 0.2 (Up to 0.2) mg/dL Ur Leukocyte Esterase Trace H (Negative) Urine RBC 5-10 H (0-2) HPF Urine WBC 3-5 (0-5) HPF Ur Epithelial Cells Few (Negative) HPF Urine Crystals Negative (Negative) HPF Urine Bacteria Rare (Negative) HPF Urine Casts 0-2 Fine Granular (Negative) LPF Urine Mucus Negative (Negative) Urine Other Rare Renal (Negative) Ur Culture Indicated? No Urine Glucose 250 H (Negative) mg/dL ABO/Rh O Positive Antibody Screen NEGATIVE [id number] Documentation Fingerstick Glucose Start: 06/04/25 04:54 Freq: Status: Complete Protocol: Activity Type Activity Date Activity User E-sign Co-sign Detail Recorded Client Recorded Date Recorded By Document 06/04/25 04:53 BKG DAEMON(5) NVT-BG05 06/04/25 04:54 BKG DAEMON(6) Fingerstick Glucose Start: 06/04/25 07:15 Freq: AC & HS Status: Active Protocol: Activity Type Activity Date Activity User E-sign Co-sign Detail Recorded Client Recorded Date Recorded By Document 06/04/25 08:49 BKG DAEMON(7) NVT-BG05 06/04/25 08:50 BKG DAEMON(8) Intake and Output - 24 Hour Total 06/04/25 04:43 thru 06/04/25 07:40 Intake Total 1500 Balance 1500 Weight 77.111 kg Intake: IV 1500 Other: Stool Characteristics Liquid Emesis Description None Falls Risk Assessment History of Falls No History 06/04/25 05:06 Contributing Factors No Factors 06/04/25 05:06 Ambulatory Aids Independent 06/04/25 05:06 Tubes/Lines None 06/04/25 05:06 Gait Evaluation No gait disturbance 06/04/25 05:06 Cognition No cognitive impairment 06/04/25 05:06 Fall Total Score 0 06/04/25 05:06 Level of Risk Standard/Low Risk 06/04/25 05:06 Problems (Last Reviewed 03/07/25 @ 09:41 by Tawny Grullon DPM) Increased anion gap metabolic acidosis (Acute) GETACHEW (acute kidney injury) (Acute) Vomiting (Acute) Diabetes mellitus with insulin therapy (Acute) Major depressive disorder (Chronic) CAD (coronary artery disease) (Chronic) v v v v v v v v v Sending and/or Receiving Nurses: Please use comment section below to note any information pertinent to the patient hand-off not included above. Information / Comments: Pt arrived to floor and settled into bed. Pt was oriented to room and call cunningham was left within reach. Pt is a/o x 4 and able to make needs known. BG rechecked on arrival with results of 209. No orders for insulin correction at this time Report received from: Nataliia VAUGHN, ED
[2025-06-04] MEDS: Insulin Aspart 300 UNITS/3 ML PEN SC ×2 (09:25→17:13)
[2025-06-04] MEDS: Lisinopril 5 MG TAB PO (09:26)
[2025-06-04] MEDS: Metoprolol CR 50 MG TABCR PO (09:26)
[2025-06-04] MEDS: Sertraline 25 MG TAB 12.5 MG PO (09:26)
[2025-06-04] MEDS: Enoxaparin 30 MG/0.3 ML SYR SC (09:27)
[2025-06-04] MEDS: Normal Saline Flush 10 ML SYR IVP ×2 (09:28→19:46)
[2025-06-04] MEDS: Acetaminophen 500 MG TAB 1000 MG PO ×2 (11:20→17:48)
[2025-06-04 13:22] LABS: Anion Gap 15.6 mmol/L (3-11); BUN 52 mg/dL (7-18); CO2 20.4 mmol/L (21.0-32.0); Calcium 9.9 mg/dL (8.5-10.1); Chloride 106 mmol/L (98-107); Estimated GFR 27.71 (mL/min/1.73m2); Glucose 216 mg/dL (74-106); Potassium 4.2 mmol/L (3.5-5.1); Sodium 142 mmol/L (136-145)
[2025-06-04] MEDS: Gabapentin 300 MG CAP 600 MG PO (14:35)
[2025-06-04] MEDS: Gabapentin 300 MG CAP 1200 MG PO (19:46)
[2025-06-05] MEDS: Acetaminophen 500 MG TAB 1000 MG PO (05:17)
[2025-06-05 05:20] VITALS: BP 142/68; PULSE 79; RESP 20; TEMP 36.2; O2SAT 99
[2025-06-05 06:40] LABS: HCT 34.3 % (36.0-46.0); HGB 11.6 g/dL (11.2-15.7); MCH 31.5 pg (27.0-33.0); MCHC 33.8 % (32.0-36.0); MCV 93 fL (80-95); MPV 10.5 fL (8.0-11.0); Platelet Count 189 10^3/uL (130-400); RBC 3.68 10^6/uL (3.93-5.22); RDW 15.9 % (11.7-14.6); RDW-SD 55.0 fL; WBC 11.93 10^3/uL (4.4-10.8)
[2025-06-05 06:55] LABS: Anion Gap 9.2 mmol/L (3-11); BUN 53 mg/dL (7-18); CO2 25.8 mmol/L (21.0-32.0); Calcium 10.1 mg/dL (8.5-10.1); Chloride 106 mmol/L (98-107); Estimated GFR 34.05 (mL/min/1.73m2); Glucose 132 mg/dL (74-106); Magnesium 2.1 mg/dL (1.8-2.4); Potassium 4.3 mmol/L (3.5-5.1); Sodium 141 mmol/L (136-145)
[2025-06-05 07:23] VITALS: BP 108/54; PULSE 83; RESP 17; TEMP 36.6; O2SAT 97
[2025-06-05] MEDS: Metoprolol CR 50 MG TABCR PO (08:00)
[2025-06-05] MEDS: Lisinopril 5 MG TAB PO (08:00)
[2025-06-05] MEDS: Enoxaparin 30 MG/0.3 ML SYR SC (08:00)
[2025-06-05] MEDS: Isosorbide Mononitrate 30 MG TABCR PO (08:01)
[2025-06-05] MEDS: Gabapentin 300 MG CAP 600 MG PO (08:02)
[2025-06-05] MEDS: Sertraline 25 MG TAB 12.5 MG PO (08:02)
[2025-06-05] MEDS: Insulin Aspart 300 UNITS/3 ML PEN SC ×2 (08:02→11:55)
[2025-06-05] MEDS: Normal Saline Flush 10 ML SYR IVP (08:03)
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
--- NOTE | 2025-06-05 10:36 | CMDISCH_ITS ---
Date of service: 06/05/25 Time of Service: 10:36 LACE Index Scoring Tool Questions: Length of Stay (in days): 1 Was the patient admitted via the E.D.?: Yes Comorbidities: Diabetes w/o Complication and Liver or Renal Disease E.D. Visits: 4 Answers: Total Score: 13 Risk of Readmission: High Risk Care Management Discharge Plan Reason for Hospitalization: Acute Gastroenteritis Discharge Plan: Toyin is discharged home via private vehicle with family. The patient will follow up with community providers and continue care as per the discharge plan. A referral to the [facility] was made prior to discharge, as the patient expressed interest in obtaining additional in-home support and MOW. Patient/Family Education Needs: Review discharge instructions and plan to follow up after discharge. Discuss ask me three. SDOH Health Related Social Needs: Health related social needs education Health related social needs details support, psych/emo tional and physical and social interaction
[2025-06-05 11:13] LABS: Lab Add On Test DONE
[2025-06-05 11:37] VITALS: BP 102/60; PULSE 78; RESP 16; TEMP 37.1; O2SAT 98
[2025-06-05 11:48] LABS: ALT 58 U/L (14-59); AST 58 U/L (15-37); Albumin 3.5 g/dL (3.4-5.0); Alkaline Phosphatase 75 U/L (46-116); Bilirubin, Direct 0.1 mg/dL (0.0-0.2); Bilirubin, Total 0.6 mg/dL (0.2-1.0); Total Protein 7.3 g/dL (6.4-8.2)
[2025-06-05] MEDS: Acetaminophen 325 MG TAB 650 MG PO (12:46)
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
== END 2025-06-05 15:49 | disposition home or self-care (01) | DRG 683 ==
LOC: ER 06:46 → MS 08:37
PROVIDERS: Admitting Provider Family Medicine; Emergency Provider Emergency Medicine; PCP Nurse Practitioner Family; Responsible Provider Family Medicine; Visit Provider Family Medicine
DX: N17.9 Acute kidney failure, unspecified (principal); E87.21 Acute metabolic acidosis; F32.1 Major depressive disorder, single episode, moderate; I13.0 Hypertensive heart and chronic kidney disease with heart failure and stage 1 through stage 4 chronic kidney disease, or unspecified chronic kidney disease; I50.22 Chronic systolic (congestive) heart failure; R11.2 Nausea with vomiting, unspecified; Z79.4 Long term (current) use of insulin; I25.10 Atherosclerotic heart disease of native coronary artery without angina pectoris; Z79.899 Other long term (current) drug therapy; G47.30 Sleep apnea, unspecified; M10.9 Gout, unspecified; M47.27 Other spondylosis with radiculopathy, lumbosacral region; G89.4 Chronic pain syndrome; E53.8 Deficiency of other specified B group vitamins; E11.40 Type 2 diabetes mellitus with diabetic neuropathy, unspecified; G47.62 Sleep related leg cramps; N18.4 Chronic kidney disease, stage 4 (severe); D63.8 Anemia in other chronic diseases classified elsewhere; K21.9 Gastro-esophageal reflux disease without esophagitis; I35.0 Nonrheumatic aortic (valve) stenosis; I08.0 Rheumatic disorders of both mitral and aortic valves; E11.65 Type 2 diabetes mellitus with hyperglycemia
CPT/HCPCS: 00123; 36415; 36416; 80048; 80053; 80076; 82805; 82962; 83690; 85027; 86850; 86900; 86901; 96361; 96374; 99285; 81003; 81015; 83735; 85025; 99223; 99238; J1650; J1815; J2470

== ENCOUNTER 2025-06-12 09:54 | Outpatient (CLI) | payer MEDICARE, SELFPAY ==
[2025-06-12 15:42] LABS: HCT 36.6 % (36.0-46.0); HGB 12.2 g/dL (11.2-15.7); MCH 32.0 pg (27.0-33.0); MCHC 33.3 % (32.0-36.0); MCV 96 fL (80-95); MPV 10.6 fL (8.0-11.0); Platelet Count 202 10^3/uL (130-400); RBC 3.81 10^6/uL (3.93-5.22); RDW 15.1 % (11.7-14.6); RDW-SD 53.1 fL; WBC 8.42 10^3/uL (4.4-10.8)
[2025-06-12 16:27] LABS: ALT 43 U/L (14-59); AST 21 U/L (15-37); Albumin 4.0 g/dL (3.4-5.0); Alkaline Phosphatase 94 U/L (46-116); Anion Gap 12.4 mmol/L (3-11); BUN 62 mg/dL (7-18); Bilirubin, Total 0.3 mg/dL (0.2-1.0); CO2 24.6 mmol/L (21.0-32.0); Calcium 9.6 mg/dL (8.5-10.1); Chloride 102 mmol/L (98-107); Estimated GFR 23.24 (mL/min/1.73m2); Glucose 165 mg/dL (74-106); Potassium 4.6 mmol/L (3.5-5.1); Sodium 139 mmol/L (136-145); Total Protein 7.7 g/dL (6.4-8.2)
[2025-06-12 16:54] LABS: Glucose Negative (Negative)
[2025-06-12 17:00] LABS: C & S Indicated? No; RBC 0-2 HPF (0-2)
[2025-06-12 17:17] LABS: COMMENT (LAB VIEW ONLY) 32.10 mg/dL; Microalb ug/mg Crea 24.3 ug/mg Cr
== END 2025-06-12 09:55 | disposition home or self-care (01) ==
LOC: LBO 09:54
PROVIDERS: PCP Nurse Practitioner Family; Referring Provider Nurse Practitioner Family; Visit Provider Nurse Practitioner Family
DX: R11.2 Nausea with vomiting, unspecified (principal)
CPT/HCPCS: 36415; 80053; 85027; 81003; 81015; 82043; 82570

== ENCOUNTER 2025-06-20 03:02 | Outpatient (CLI) | payer MEDICARE, SELFPAY ==
--- NOTE | 2025-06-20 | DI.US_ITS ---
Exam(s) US ABDOMEN LIMITED EXAM: US ABDOMEN LIMITED CLINICAL HISTORY: MASH K75.81 CIRRHOSIS LIVER K74.60,HCC screening TECHNIQUE: Ultrasound of the right upper quadrant performed using standard protocol. COMPARISON: CT CT ABDOMEN PELVIS W from 12/21/2024 US US ABDOMEN LIMITED from 01/05/2025 FINDINGS: LIVER: 19 cm in length. Increasedechogenicity with decreased through transmission. Heterogeneous echotexture.. No focal liver lesions are seen. GALLBLADDER: Cholecystectomy BILIARY SYSTEM: No intrahepatic or extrahepatic biliary ductal dilation. RIGHT KIDNEY: Normal size. No evidence of renal calculi. No evidence of hydronephrosis. No suspicious renal mass. Stable small cysts. PANCREAS: Normal where visualized. ABDOMINAL AORTA AND IVC: Visualized portions normal caliber. ASCITES: None seen. IMPRESSION: Mildly enlarged liver with increased echogenicity and heterogeneous echotexture. No focal lesions. DATA REPOSITORY:
== END 2025-06-20 03:22 ==
PROVIDERS: PCP Nurse Practitioner Family; Visit Provider Nurse Practitioner Family
DX: K74.60 Unspecified cirrhosis of liver (principal)
CPT/HCPCS: 76705

== ENCOUNTER 2025-09-28 00:39 | Outpatient (CLI) | payer MEDICARE, SELFPAY ==
[2025-09-28 09:12] LABS: Hemoglobin A1C 6.6 % (<5.7)
[2025-09-28 09:28] LABS: Cholesterol 243 mg/dL (<200); HDL Cholesterol 46 mg/dL (>or=50)
== END 2025-09-28 00:40 | disposition home or self-care (01) ==
LOC: LBO 00:39
PROVIDERS: PCP Nurse Practitioner Family; Referring Provider Nurse Practitioner Family; Visit Provider Nurse Practitioner Family
DX: E11.9 Type 2 diabetes mellitus without complications (principal); Z79.4 Long term (current) use of insulin; E11.40 Type 2 diabetes mellitus with diabetic neuropathy, unspecified
CPT/HCPCS: 36415; 80061; 83721; 83036